=== PATIENT | female | born 1945 | race Caucasian/White ===

== ENCOUNTER 2017-09-16 11:58 | Emergency (ER) | payer OTHER, MEDICARE ==
[~2017-09-16] VITALS: Ht 157.5 cm; Wt 64.0 kg
[~2017-09-16 11:58] MED LIST: ADVAIR 100-501 EACH IH; ALBUTEROL1.25 MG/3 IH; ALBUTEROL2.5 MG/3 M IH; AMLODIPINE BESYL5 MG PO; AMOXICILLIN500 M1 PO; AMPICILLIN TRI250 MG PO; ASPIR-LOW81 MG PO; ASPIRIN EC81 MG PO; ATORVASTATIN CA40 MG PO; BACTRIM DS TAB1 EACH PO; CEPHALEXIN500 MG PO; CIPRO250 MG PO; CIPRO500 MG PO; CLONAZEPAM1 MG PO; CLONAZEPAM2 MG GT; CLONAZEPAM2 MG PO; CLOPIDOGREL75 MG PO; CRESTOR20 MG PO; CYCLOBENZAPRINE5 MG PO; DARVOCET-N 1001 EACH PO; DAYPRO600 MG PO; DUCODYL5 MG PO; ENDOCET 10-3251 EACH PO; ENDOCET 5-3251 EACH PO; HYDROCODON-ACE1 EAC8 PO; IBUPROFEN200 MG PO; IBUPROFEN600 MG PO; IBUPROFEN800 MG PO; KLONOPIN1 MG PO; KLONOPIN2 MG PO; L-METHYLFOLATE1 EAC4 PO; LACTULOSE10 GM/15 M PO; LEVOTHROID112 MCG PO; LEVOTHYROXINE100 MCG PO; LEVOTHYROXINE125 MCG PO; LEVOTHYROXINE88 MCG PO; LORATADINE10 MG PO; MULTI VITAMIN1 EACH PO; MULTI-DAY VITA1 EACH PO; NITROSTAT0.4 MG SL; NORCO 10-325 T1 EACH; NORCO 5-325 TA1 EACH PO; OSTERA TABLET1 EACH; OXYCODONE HCL10 MG PO; PERCOCET 10-321 EACH PO; PERCOCET 5-3251 EACH PO; PERCOCET 7.5-31 EACH PO; PREMARIN42.5 GM VAGINAL; PROMETHAZINE HC25 M1 PO; PYRIDIUM200 MG PO; RANITIDINE HCL150 MG PO; REMERON15 MG PO; REQUIP2 MG PO; REQUIP4 MG PO; ROBAXIN500 MG PO; ROPINIROLE HCL4 MG PO; SEPTRA 80-4001 EACH PO; TIZANIDINE HCL4 M1 PO; TRANSDERM-SCOP1 EA TD; TYLENOL EXTRA500 MG PO; VALIUM5 MG PO; VISTARIL25 MG PO; VITAMIN D250000 UNIT PO; VITAMIN D3400 UNIT PO; VITAMIN D35000 UNI1 PO; ZOFRAN4 MG PO
[2017-09-16] MEDS ORDERED: KETOROLAC TROME10 MG PO (13:40)
== END 2017-09-16 13:48 | disposition home or self-care (01) ==
LOC: ED 11:58
DX: S20.211A Contusion of right front wall of thorax, initial encounter (principal); E11.9 Type 2 diabetes mellitus without complications; J44.9 Chronic obstructive pulmonary disease, unspecified; F32.9 Major depressive disorder, single episode, unspecified; W18.39XA Other fall on same level, initial encounter; Z88.8 Allergy status to other drugs, medicaments and biological substances; Z88.5 Allergy status to narcotic agent; Z79.82 Long term (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 of aspirin; Z79.899 Other long term (current) 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
CPT/HCPCS: 71101; 96372; 99283; J1885

== ENCOUNTER → 2017-10-07 | Emergency (ER) | payer MEDICARE, OTHER ==
[~2017-10-07] VITALS: Ht 157.5 cm; Wt 64.0 kg
[~2017-10-07] MED LIST changes: +KETOROLAC TROME10 MG PO
--- OUTSIDE RECORDS SUMMARY | ~2017-10-07 | XMS | Clinical Summary ---
Demographics + + + | Address | [address] | | | [place] [address] | + + + | Home Phone | | + + + | Preferred Language | Unknown | + + + | Marital Status | Single | + + + | Yazidi Affiliation | NON | + + + [...] Care Team Providers + +------+-------+ | Care Bench Press Operator Name | Role | Phone | + +------+-------+ | Oxana Nye | PP | tel | + +------+-------+ Source Comments RADHA is fully live on both [facility] and [facility] InPatient.[facility] Allergies + + + + [...]
== END ==
LOC: ED 17:57
DX: F25.9 Schizoaffective disorder, unspecified (principal); F32.9 Major depressive disorder, single episode, unspecified; J44.9 Chronic obstructive pulmonary disease, unspecified; Z88.5 Allergy status to narcotic agent; Z88.8 Allergy status to other drugs, medicaments and biological substances; Z79.82 Long term (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 of aspirin; Z79.899 Other long term (current) 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
CPT/HCPCS: 80053; 80176; 81001; 84443; 85025; 99283; G0480

== ENCOUNTER 2017-11-18 13:06 | Emergency (ER) | payer MEDICARE, OTHER ==
[~2017-11-18] VITALS: Ht 157.5 cm; Wt 64.0 kg
--- OUTSIDE RECORDS SUMMARY | ~2017-11-18 | XMS | Clinical Summary ---
Demographics + + + | Address | [address] | | | [place] [address] | + + + | Home Phone | | + + + | Preferred Language | Unknown | + + + | Marital Status | Single | + + + | Holiness Affiliation | NON | + + + [...] | Unavailable | + + + Support +------+ +---------+ + | Name | Relationship | Address | Phone | +------+ +---------+ + ECON | Unknown | | +------+ +---------+ + Care Team Providers + +------+-------+ | Care Mechanic Chief Name | Role | Phone | + +------+-------+ | Oxana Nye | PP | tel | + +------+-------+ Source Comments RADHA is fully live on both [facility] Ambulatory and [facility] InPatient.[facility] Allergies + + + + [...] | | | (FLU SHOT): NO | 7 | | | | MYCHART REMINDER | | | | + + + + + Results Not on filefrom Last 3 Months
--- OUTSIDE RECORDS SUMMARY | ~2017-11-18 | XMS | Clinical Summary ---
Demographics + + + | Address | [address] | | | [place] [address] | + + + | Home Phone | | + + + | Preferred Language | Unknown | + + + | Marital Status | Single | + + + | Caodaism Affiliation | NON | + + + [...] Care Team Providers + +------+-------+ | Care Department Store General Manager Name | Role | Phone | + +------+-------+ | Oxana Nye | PP | tel | + +------+-------+ Source Comments RADHA is fully live on both [facility] Amb[facility] and [facility] InPatient.[facility] Allergies + + + + + + [...]
[2017-11-18] MEDS ORDERED: LEVOTHYROXINE100 MCG (13:20)
[2017-11-18] MEDS ORDERED: LEVOTHYROXINE100 MCG PO (13:21)
[2017-11-18] MEDS ORDERED: VENTOLIN HFA18 GM INH (13:22)
[2017-11-18] MEDS ORDERED: NAPROXEN500 M1 PO (13:23)
[2017-11-18] MEDS ORDERED: TYLENOL WITH C1 EACH PO (13:25)
[2017-11-18] MEDS ORDERED: LIDO-PRILO CAI1 EACH (13:26)
== END 2017-11-18 16:25 ==
LOC: ED 13:06
DX: R45.851 Suicidal ideations (principal); M25.511 Pain in right shoulder; M54.5 Low back pain; G89.29 Other chronic pain; G25.81 Restless legs syndrome; E11.9 Type 2 diabetes mellitus without complications; Z95.9 Presence of cardiac and vascular implant and graft, unspecified; Z88.8 Allergy status to other drugs, medicaments and biological substances; Z79.899 Other long term (current) 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
CPT/HCPCS: 80053; 80176; 81001; 84443; 85025; 99285; G0480

== ENCOUNTER 2018-02-11 21:19 | Emergency (ER) | payer MEDICARE, OTHER ==
[~2018-02-11] VITALS: Ht 157.5 cm; Wt 61.2 kg
[~2018-02-11 21:19] MED LIST changes: +LEVOTHYROXINE100 MCG; +LIDO-PRILO CAI1 EACH; +NAPROXEN500 M1 PO; +TYLENOL WITH C1 EACH PO; +VENTOLIN HFA18 GM INH
--- OUTSIDE RECORDS SUMMARY | 2018-02-12 07:11 | XMS | Clinical Summary ---
Demographics + + + | Address | [address] | | | [place] [address] | + + + | Home Phone | | + + + | Preferred Language | Unknown | + + + | Marital Status | | + + + | Mu-Ism Affiliation | 1041 | + + + | Race | Unknown | + + + | Ethnic Group | Unknown | + + + Author + + + | Author | [facility] | | | and [place] | + + + | Organization | [facility] | | | and [place] | + + + | Address | Unknown | + + + | Phone | Unavailable | + + + Support + + + + + | Name | Relationship | Address | Phone | + + + + + | Giuseppe Menchaca | ECON | Unknown | | + + + + + | Gonzalez Menchaca | ECON | NA | | | | | [place] | | + + + + + Care Team Providers + +------+ + | Care Field Artillery Targeting Technician Name | Role | Phone | + +------+ + | Wendi Aiken | PP | | + +------+ + Allergies + + + + + + | Active Allergy | Reactions | Severity | Noted | Comments | | | | | Date | | + + + + + + | Lorazepam | | | 09/18/20 | | | | | | 12 | | + + + + + + | Morphine | | | 09/18/20 | | | | | | 12 | | + + + + + + | Prednisolone | Other (See Comments) | Medium | 07/17/20 | | | | | | 14 | Depression/suicidal | + + + + + + | Zolpidem | | | 11/01/19 | | | | | | 13 | | + + + + + + Current Medications + + +-------+---------+------+------+-------+ | Prescription | Sig. | Disp. | Refills | Star | End | Statu | | | | | | t | Date | s | | | | | | Date | | | + + +-------+---------+------+------+-------+ | Ropinirole HCl | Take 4.5 mg by mouth | | | 11/0 | | Activ | | (REQUIP XL) 6 MG | 4 times daily. | | | 1/20 | | e | | TB24 | | | | 11 | | | + + +-------+---------+------+------+-------+ | levothyroxine | Take 0.88 mcg by | | | | | Activ | | (SYNTHROID, | mouth every morning | | | | | e | | LEVOTHROID) 112 mcg | (before breakfast). | | | | | | | tablet | | | | | | | + + +-------+---------+------+------+-------+ | Loratadine 10 MG | Take by mouth. | | | | | Activ | | CAPS | | | | | | e | + + +-------+---------+------+------+-------+ | clonazepam | Take 1 mg by mouth | | | | | Activ | | (KLONOPIN) 2 MG | Twice daily as | | | | | e | | tablet | needed. | | | | | | + + +-------+---------+------+------+-------+ | albuterol 5 mg/mL | Take 2.5 mg by | | | | | Activ | | nebulizer solution | nebulization every 6 | | | | | e | | | hours as needed. | | | | | | + + +-------+---------+------+------+-------+ | ipratropium | Take 0.5 mg by | | | | | Activ | | (ATROVENT) 500 | nebulization 4 times | | | | | e | | mcg/2.5 mL nebulizer | daily. | | | | | | | solution | | | | | | | + + +-------+---------+------+------+-------+ | ranitidine | Take 150 mg by mouth | | | | | Activ | | (ZANTAC) 150 MG | as needed. | | | | | e | | capsule | | | | | | | + + +-------+---------+------+------+-------+ | amLODIPine | Take 5 mg by mouth | | | | | Activ | | (NORVASC) 5 mg | Daily. | | | | | e | | tablet | | | | | | | + + +-------+---------+------+------+-------+ | ibuprofen | Take 600 mg by mouth | | | | | Activ | | (ADVIL,MOTRIN) 600 | every 6 hours as | | | | | e | | MG tablet | needed for Pain. | | | | | | + + +-------+---------+------+------+-------+ | Lactobacillus | Take 1 tablet by | | | | | Activ | | (PROBIOTIC | mouth Daily. | | | | | e | | ACIDOPHILUS PO) | | | | | | | + + +-------+---------+------+------+-------+ Active Problems + + + | Problem | Noted Date | + + + | Right lumbar radiculopathy | 07/12/2017 | + + + | Cervical radiculopathy | 07/26/2014 | + + + | Myelopathy (HCC) | 07/26/2014 | + + + | Scoliosis of lumbar spine | 04/17/2014 | + + + | 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 | 12/19/2013 | + + + | Chronic low back pain | 08/26/2013 | + + + | Facet arthritis of lumbar region (HCC) | 08/26/2013 | + + + | Acute renal failure (HCC) | 08/16/2013 | + + + | Left lumbar radiculopathy | 11/01/2012 | + + + | ORGANIC INSOMNIA UNSPECIFIED | 08/31/2011 | + + + + + | Overview: ICD-10 Record update | + + + +---+ | SACROILIITIS | | + +---+ | BURSITIS, HIP | | + +---+ | DISC DISEASE, LUMBAR | | + +---+ | BACK PAIN, LUMBAR | | + +---+ | OSTEOARTHRITIS, LUMBOSACRAL SPINE | | + +---+ | COUGH VARIANT ASTHMA | | + +---+ | Chronic diarrhea | | + +---+ + + | Overview: [facility] [id number] Decision | + + + +---+ | ESOPHAGEAL REFLUX | | + +---+ | GASTROPARESIS | | + +---+ | GENERALIZED ANXIETY DISORDER | | + +---+ | NAUSEA WITH VOMITING | | + +---+ | RESTLESS LEG SYNDROME | | + +---+ | HYPOGLYCEMIA | | + +---+ | INSOMNIA DUE TO MENTAL DISORDER | | + +---+ + + | Overview: ICD-10 Record update | + + + +---+ | Depression, major, recurrent - with multiple prior suicide | | | attempts | | + +---+ | LUMBAR STRAIN | | + +---+ | DDD (degenerative disc disease), lumbar | | + +---+ Family History + + +--------+ + | Medical History | Relation | Name | Comments | + + +--------+ + | Heart attack | Brother | | | + + +--------+ + | Heart failure | Brother | | | + + +--------+ + | No Known Problems | Child | | | + + +--------+ + | Alcohol abuse | Father | | | + + +--------+ + | Lung cancer | Father | | | + + +--------+ + | Parkinsonism | Maternal | | | | | Grandfath | | | | | er | | | + + +--------+ + | No Known Problems | Maternal | | | | | Grandmoth | | | | | er | | | + + +--------+ + | Arthritis | Mother | | | + + +--------+ + | Diabetes | Mother | | | + + +--------+ + | Heart disease | Mother | | | + + +--------+ + | Kidney disease | Mother | | | + + +--------+ + | Renal Failure | Mother | | | + + +--------+ + | Heart failure | Paternal | | | | | Aunt | | | + + +--------+ + | Cancer | Paternal | | | | | Grandfath | | | | | er | | | + + +--------+ + | Heart failure | Paternal | | | | | Grandmoth | | | | | er | | | + + +--------+ + | Alcohol abuse | Paternal | | | | | Uncle | | | + + +--------+ + | Cancer | Paternal | | | | | Uncle | | | + + +--------+ + | Cancer | Paternal | | | | | Uncle | | | + + +--------+ + | Stomach cancer | Paternal | | | | | Uncle | | | + + +--------+ + | Cancer | Sister | | | + + +--------+ + | No Known Problems | Son | Giuseppe | | + + +--------+ + | No Known Problems | Son | Destiny | | + + +--------+ + + +--------+ + + | Relation | Name | Status | Comments | + +--------+ + + | Brother | | | [place] | | | | (Age | | | | | 52) | | + +--------+ + + | Child | | | | + +--------+ + + | Father | | | | | | | (Age | | | | | 42) | | + +--------+ + + | Maternal Grandfather | | | | | | | (Age | | | | | 71) | | + +--------+ + + | Maternal Grandmother | | | | | | | (Age | | | | | 95) | | + +--------+ + + | Mother | | | Kidney Failure | | | | (Age | | | | | 55) | | + +--------+ + + | Paternal Aunt | | | | | | | (Age | | | | | 87) | | + +--------+ + + | Paternal Grandfather | | | Cancer | | | | (Age | | | | | 83) | | + +--------+ + + | Paternal Grandmother | | | Heart Failure | + +--------+ + + | Paternal Uncle | | | | + +--------+ + + | Paternal Uncle | | | | | | | (Age | | | | | 76) | | + +--------+ + + | Paternal Uncle | | | | | | | (Age | | | | | 76) | | + +--------+ + + | Paternal Uncle | | | | | | | (Age | | | | | 72) | | + +--------+ + + | Sister | | | | + +--------+ + + | Son | Giuseppe | Alive | | + +--------+ + + | Son | Destiny | Alive | | + +--------+ + + Social History + +-------+ +--------+------+ | Tobacco Use | Types | Packs/Day | Years | Date | | | | | Used | | + +-------+ +--------+------+ | Never Smoker | | | | | + +-------+ +--------+------+ + +---+---+---+ | Smokeless Tobacco: | | | | | Never Used | | | | + +---+---+---+ + + +---------+ + | Alcohol Use | Drinks/We | oz/Week | Comments | | | ek | | | + + +---------+ + | Yes | | | OCCASIONAL | + + +---------+ + + + + | Sex Assigned at | Date Recorded | | | | + + + | Not on file | | + + + Last Filed Vital Signs + + + + | Vital Sign | Reading | Time Taken | + + + + | Blood Pressure | 109/41 | 07/12/2017 1333 PDT | + + + + | Pulse | 74 | 07/12/20171332 PDT | + + + + | Temperature | 36.8 C (98.2 F) | 04/25/20171912 PDT | + + + + | Respiratory Rate | 16 | 04/25/20172019 PDT | + + + + | Oxygen Saturation | 97% | 04/25/20172019 PDT | + + + + | Inhaled Oxygen | - | - | | Concentration | | | + + + + | Weight | 61.2 kg (135 lb) | 07/12/20171332 PDT | + + + + | Height | 157.5 cm (5' 2") | 07/12/20171332 PDT | + + + + | Body Mass Index | 24.69 | 07/12/20171332 PDT | + + + + Plan of Treatment + + + + + | Health Maintenance | Due Date | Last Done | Comments | + + + + + | Hepatitis C | | | | | Screening | 7 | | | + + + + + | Vaccine: | | | | | Dtap/Tdap/Td (1 - | 6 | | | | Tdap) | | | | + + + + + | BREAST CANCER | | | | | SCREENING (MAMM Q2 | 7 | | | | YEARS 50-74) | | | | + + + + + | COLON CANCER | | | | | SCREENING | 7 | | | | (COLONOSCOPY EVERY | | | | | 10 YEARS 50-75) | | | | + + + + + | Vaccine: Zoster (#1) | | | | | | 7 | | | + + + + + | Vaccine: | | 07/18/2014 | | | Pneumococcal 65+ | 5 | | | | High/Highest Risk (2 | | | | | of 2 - PCV13) | | | | + + + + + | Vaccine: Influenza | | | | | (Season Ended) | 8 | | | + + + + + Results Not on filefrom Last 3 Months Insurance + +--------+ +--------+ +---------+ | Payer | Benefi | Subscriber | Type | Phone | Address | | | t Plan | ID | | | | | | / | | | | | | | Group | | | | | + +--------+ +--------+ +---------+ | INDIVIDUAL ASSURANCE | INDIVI | xxxxxxx | Indemn | | | | COMPANY | DUAL | | ity | | | | | ASSURA | | | | | | | [place] | | | | | | | MDCR | | | | | | | SUPPL | | | | | + +--------+ +--------+ +---------+ | MEDICARE | MEDICA | xxxxxxxxxx | Medica | +- | | | | RE | | re | [phone] | | | | PART A | | | | | | | AND B | | | | | + +--------+ +--------+ +---------+ | MEDICARE | MEDICA | xxxxxxxxxx | Medica | +- | | | | RE | | re | [phone] | | | | PART A | | | | | | | AND B | | | | | + +--------+ +--------+ +---------+ | INDIVIDUAL ASSURANCE | INDIVI | [id number] | Indemn | | | | COMPANY | DUAL | | ity | | | | | ASSURA | | | | | | | [place]CE [place] | | | | | | | MDCR | | | | | | | SUPPL | | | | | + +--------+ +--------+ +---------+ + +--------+ +--------+ + + | Guarantor Name | Accoun | Relation to | Date | Phone | Billing Address | | | t Type | Patient | of | | | | | | | | | | + +--------+ +--------+ + + | YU RUBIO | Person | Self [birth year] | Home: | [address] | | [place] | antonio/Benji | | 1945 | [phone] | [address] [place], [place] | | | jose | | | [phone] | + +--------+ +--------+ + + | YU RUBIO | Person | Self | [birth year] | Home: | [address] | | [place] | al/Fam | | 1944 | [phone]- | [address] [place], [place] | | | jose | | | [phone] | [phone] | + +--------+ +--------+ + +
--- OUTSIDE RECORDS SUMMARY | 2018-02-12 07:11 | XMS | Clinical Summary ---
Demographics + + + | Address | [address] | | | [place] [address] | + + + | Home Phone | | + + + | Preferred Language | Unknown | + + + | Marital Status | | + + + | Hoahaoism Affiliation | 1013 | + + + | Race | Unknown | + + + | Ethnic Group | Unknown | + + + Author + + + | Author | [facility] | + + + | Organization | [facility] | + + + | Address | Unknown | + + + | Phone | Unavailable | + + + Support + + +---------+ + | Name | Relationship | Address | Phone | + + +---------+ + | Detailed,Message | ECON | Unknown | | + + +---------+ + | Giuseppe Menchaca | ECON | Unknown | | + + +---------+ + | Gonzalez Menchaca | ECON | Unknown | | + + +---------+ + | Gwendolyn Cho | ECON | Unknown | | + + +---------+ + Care Team Providers + +------+ + | Care Medical Logistics Specialist Name | Role | Phone | + +------+ + | Oxana Nye NP | PP | | + +------+ + Allergies + + + + + + | Active Allergy | Reactions | Severity | Noted | Comments | | | | | Date | | + + + + + + | Zolpidem | Other (See Comments) | Medium | 11/15/19 | Unknown | | | | | 14 | | + + + + + + | Lorazepam | Other (See Comments) | Medium | 11/15/19 | Unknown reaction. | | | | | 14 | Has tolerated | | | | | | Clonazepam and | | | | | | Diazepam previously. | | | | | | 07/17/14 james | + + + + + + | Morphine | Other (See Comments) | Medium | 11/15/19 | Unknown. Per | | | | | 14 | patient she takes | | | | | | hydrocodone at home, | | | | | | has taken tramadol | | | | | | without incident | + + + + + + [...] | | | + + +-------+---------+------+------+-------+ | clonazePAM | Take 1 mg by mouth | | | | | Activ | | (KLONOPIN) 1 MG | nightly. | | | | | e | | tablet | | | | | | | + + +-------+---------+------+------+-------+ | loratadine | Take 10 mg by mouth | | | | | Activ | | (CLARITIN) 10 MG | daily. | | | | | e | | tablet | | | | | | | + + +-------+---------+------+------+-------+ | albuterol | Take 2 ampules by | | | | | Activ | | (ACCUNEB) 1.25 | nebulization every 6 | | | | | e | | MG/3ML nebulizer | (six) hours as | | | | | | | solution | needed for Wheezing. | | | | | | + + +-------+---------+------+------+-------+ | | Take 1 tablet by | | | | | Activ | | HYDROcodone-acetamin | mouth every 6 (six) | | | | | e | | ophen (NORCO) 10-325 | hours as needed for | | | | | | | MG per tablet | Pain. | | | | | | + + +-------+---------+------+------+-------+ | ibuprofen (MOTRIN) | Take 800 mg by mouth | | | | | Activ | | 800 MG tablet | every 6 (six) hours | | | | | e | | | as needed for Pain. | | | | | | + + +-------+---------+------+------+-------+ | levothyroxine | Take 88 mcg by mouth | | | | | Activ | | (SYNTHROID) 88 MCG | daily. | | | | | e | | tablet | | | | | | | + + +-------+---------+------+------+-------+ | ropinirole | Take 2 mg by mouth 4 | | | | | Activ | | (REQUIP) 2 MG tablet | (four) times daily. | | | | | e | + + +-------+---------+------+------+-------+ | atorvastatin | Take 40 mg by mouth | | | | | Activ | | (LIPITOR) 40 MG | nightly. | | | | | e | | tablet | | | | | | | + + +-------+---------+------+------+-------+ | clopidogrel | Take 75 mg by mouth | | | | | Activ | | (PLAVIX) 75 MG | daily. | | | | | e | | tablet | | | | | | | + + +-------+---------+------+------+-------+ | aspirin 81 MG | Take 81 mg by mouth | | | | | Activ | | tablet | daily. | | | | | e | + + +-------+---------+------+------+-------+ | nitroGLYCERIN | Place 0.4 mg under | | | | | Activ | | (NITROSTAT) 0.4 MG | the tongue every 5 | | | | | e | | SL tablet | (five) minutes as | | | | | | | | needed for Chest | | | | | | | | pain. | | | | | | + + +-------+---------+------+------+-------+ Active Problems + + + | Problem | Noted Date | + + + | Peripheral vertigo | 11/20/2015 | + + + | Intractable back pain | 07/17/2014 | + + + | Impaired mobility and ADLs | 11/19/2013 | + + + | Gait difficulty | 11/19/2013 | + + + | Anxiety state, unspecified | 11/19/2013 | + + + | History of oral aphthous ulcers | 11/19/2013 | + + + | Hypothyroid | 11/17/2013 | + + + | Low back ache | 11/17/2013 | + + + | COPD (chronic obstructive pulmonary disease) | 11/17/2013 | + + + | Aspiration pneumonia (HCC) | 11/17/2013 | + + + | Generalized anxiety disorder | 11/17/2013 | + + + | Anemia, unspecified | 11/16/2013 | + + + | Acute respiratory failure (HCC) | 11/15/2013 | + + + | Other shock without mention of trauma | 11/15/2013 | + + + | Metabolic acidosis | 11/15/2013 | + + + | Coma (HCC) | 11/15/2013 | + + + | Overdose of muscle relaxant | 11/15/2013 | + + + | Alcohol intoxication | 11/15/2013 | + + + | Hypotension, unspecified | 11/15/2013 | + + + Immunizations + + + + | Name | Dates Previously Given | Next Due | + + + + | Pneumococcal | 07/18/2014 | | | Polysaccharide | | | | 23-valent | | | + + + + Social History + +-------+ +--------+------+ [...] + + +---------+ + | Yes | 3-4 | 1.5 - | | | | Standard | 2.0 | | | | drinks or | | | | | | | | | | equivalen | | | | | t | | | + + +---------+ + + + + | Sex Assigned at | Date Recorded | | | | + + + | Not on file | | + + + Last Filed Vital Signs + + + + | Vital Sign | Reading | Time Taken | + + + + | Blood Pressure | 113/74 | 03/02/2016 3:27 PM PDT | + + + + | Pulse | 84 | 03/02/2016 3:27 PM PDT | + + + + | Temperature | 36.4 C (97.6 F) | 11/26/2015 12:22 PM PST | + + + + | Respiratory Rate | 20 | 11/26/2015 1:13 PM PST | + + + + | Oxygen Saturation | 100% | 11/26/2015 1:13 PM PST | + + + + | Inhaled Oxygen | - | - | | Concentration | | | + + + + | Weight | 57.6 kg (127 lb) | 03/02/2016 3:27 PM PDT | + + + + | Height | 157.5 cm (5' 2") | 03/02/2016 3:27 PM PDT | + + + + | Body Mass Index | 23.23 | 03/02/2016 3:27 PM PDT | + + + + Plan of Treatment + + + + + | Health Maintenance | Due Date | Last Done | Comments | + + + + + | Vaccine: | | | | | Dtap/Tdap/Td (1 - | 6 | | | | Tdap) | | | | + + + + + | Breast Cancer | | | | | Screening | 7 | | | | (Mammogram) | | | | + + + + + | Colon Cancer | | | | | Screening | 7 | | | | (Colonoscopy) | | | | + + + + + | Vaccine: Zoster (#1) | | | | | | 7 | | | + + + + + | DEXA SCAN SCREENING | | | | | | 2 | | | + + + + + | Vaccine: | | 07/18/2014 | | | Pneumococcal 65+ | 5 | | | | Low/Medium Risk (2 | | | | | of 2 - PCV13) | | | | + + + + + | Vaccine: Influenza | | | | | (Season Ended) | 8 | | | + + + + + Results Not on filefrom Last 3 Months Insurance + +--------+ +------+-------+ + | Payer | Benefi | Subscriber | Type | Phone | Address | | | t Plan | ID | | | | | | / | | | | | | | Group | | | | | + +--------+ +------+-------+ + | MEDICARE | MEDICA | xxxxxxxxxx | | | [address] | | | RE | | | | [place] [address] | | | IP-OP | | | | | + +--------+ +------+-------+ + | [facility] | UNITED | xxxxxxxxxxx | | | | | | | | | | | | | HEALTH | | | | | | | CARE - | | | | | | | AARP | | | | | + +--------+ +------+-------+ + + +--------+ +--------+ + + | Guarantor Name | Accoun | Relation to | Date | Phone | Billing Address | | | t Type | Patient | of | | | | | | | | | | + +--------+ +--------+ + + | JAS BUTLER | Person | Self [birth year] | Home: | [address] | | [place] | al/Fam | | 1945 | [phone] | [address] [place], | | | jose | | | [phone] | [place] [address] | + +--------+ +--------+ + +
--- OUTSIDE RECORDS SUMMARY | 2018-02-12 07:11 | XMS | Clinical Summary ---
Demographics + + + | Address | [address] | | | [place] [address] | + + + | Home Phone | | + + + | Preferred Language | Unknown | + + + | Marital Status | Single | + + + | Sikhism Affiliation | NON | + + + | Race | White | + + + | Ethnic Group | Not or | + + + Author + + + | Author | [facility] | + + + | Organization | [facility] | + + + | Address | Unknown | + + + | Phone | Unavailable | + + + Support + + +---------+ + | Name | Relationship | Address | Phone | + + +---------+ + | Royce Menchaca | ECON | Unknown | | + + +---------+ + Care Team Providers + +------+ + | Care Correctional Probation Officer Name | Role | Phone | + +------+ + | Oxana Nye | PP | Unavailable | + +------+ + Source Comments [facility] is fully live on both [facility] and [facility] Allergies + + + + + + | Active Allergy | Reactions | Severity | Noted | Comments | | | | | Date | | + + + + + + | Zolpidem Tartrate | Hallucinations | | 11/29/19 | | | | | | 14 | | + + + + + + | Lorazepam | Hallucinations | | 11/29/19 | | | | | | 14 | | + + + + + + | Morphine | Hallucinations | | 11/29/19 | | | | | | 14 | | + + + + + + Current Medications + + +--------+---------+------+------+-------+ | Prescription | Sig. | Disp. | Refills | Star | End | Statu | | | | | | t | Date | s | | | | | | Date | | | + + +--------+---------+------+------+-------+ | levothyroxine 112 | Take 88 mcg by mouth | | | | | Activ | | mcg oral tablet | once daily. | | | | | e | + + +--------+---------+------+------+-------+ | clonazePAM 1 mg | Take 0.5 mg by mouth | | | | | Activ | | oral tablet | once daily at | | | | | e | | | bedtime. | | | | | | + + +--------+---------+------+------+-------+ | | Take 1 tablet by | | | | | Activ | | HYDROcodone-acetamin | mouth every six | | | | | e | | ophen 10-325 mg oral | hours as needed. | | | | | | | tablet | | | | | | | + + +--------+---------+------+------+-------+ | ibuprofen 600 mg | Take by mouth. | | | | | Activ | | oral tablet | | | | | | e | + + +--------+---------+------+------+-------+ | loratadine 10 mg | Take 10 mg by mouth | | | | | Activ | | oral tablet | once daily. | | | | | e | + + +--------+---------+------+------+-------+ | Ranitidine HCl 150 | Take 150 mg by mouth | | | | | Activ | | mg oral capsule | once daily at | | | | | e | | | bedtime. | | | | | | + + +--------+---------+------+------+-------+ | rOPINIRole 2 mg | Take 2 mg by mouth | | | | | Activ | | oral tablet | once daily in the | | | | | e | | | evening. | | | | | | + + +--------+---------+------+------+-------+ | aspirin EC 81 mg | Take 81 mg by mouth | | | | | Activ | | oral tablet,delayed | once daily. | | | | | e | | release (DR/EC) | | | | | | | + + +--------+---------+------+------+-------+ | NITROSTAT 0.4 mg | | | 0 | 03/0 | | Activ | | sublingual tablet, | | | | 8/20 | | e | | sublingual | | | | 16 | | | + + +--------+---------+------+------+-------+ | amLODIPine 5 mg | Take 1 tablet by | 90 | 3 | 05/1 | | Activ | | oral | mouth once daily. | tablet | | 0/20 | | e | | tabletIndications: | | | | 16 | | | | Chest pain, | | | | | | | | unspecified type | | | | | | | + + +--------+---------+------+------+-------+ Active Problems + + + | Problem | Noted Date | + + + | Hypothyroidism | 03/15/2016 | + + + | Anxiety | 03/15/2016 | + + + | Palpitations | 03/09/2016 | + + + | Chest pain | 03/09/2016 | + + + | PPS (pelvic pain syndrome) | 12/09/2013 | + + + | Depression with suicidal ideation | 12/09/2013 | + + + | Recurrent UTI | 12/09/2013 | + + + Family History + + +------+ + | Medical History | Relation | Name | Comments | + + +------+ + | Heart Attack | Brother | | | + + +------+ + | Cancer | Father | | lung | + + +------+ + | Diabetes | Mother | | type 1 | + + +------+ + + +------+--------+ + | Relation | Name | Status | Comments | + +------+--------+ + | Brother | | | | + +------+--------+ + | Father | | | | + +------+--------+ + | Mother | | | | + +------+--------+ + Social History + +-------+ +--------+------+ | [...] | | + + +---------+ + | No | | | | + + +---------+ + + + + | Sex Assigned at | Date Recorded | | | | + + + | Not on file | | + + + Last Filed Vital Signs + + + + | Vital Sign | Reading | Time Taken | + + + + | Blood Pressure | 134/71 | 03/09/2016 3:31 PM PDT | + + + + | Pulse | 76 | 03/09/2016 3:31 PM PDT | + + + + | Temperature | 36.7 C (98 F) | 03/09/2016 3:31 PM PDT | + + + + | Respiratory Rate | - | - | + + + + | Oxygen Saturation | 100% | 03/09/2016 3:31 PM PDT | + + + + | Inhaled Oxygen | - | - | | Concentration | | | + + + + | Weight | 58.5 kg (129 lb) | 03/09/2016 3:31 PM PDT | + + + + | Height | 156.2 cm (5' 1.5") | 03/09/2016 3:31 PM PDT | + + + + | Body Mass Index | 23.98 | 03/09/2016 3:31 PM PDT | + + + + Plan of Treatment + + + + + | Health Maintenance | Due Date | Last Done | Comments | + + + + + | MAMMOGRAM | | | | | | 7 | | | + + + + + | INFLUENZA VACCINE | | | | | (FLU SHOT): NO | 8 | | | | MYCHART REMINDER | | | | + + + + + Results Not on filefrom Last 3 Months
--- OUTSIDE RECORDS SUMMARY | 2018-02-12 07:11 | XMS | Clinical Summary ---
Demographics + + + | Address | [address] | | | [place] [address] | + + + | Home Phone | | + + + | Preferred Language | Unknown | + + + | Marital Status | | + + + | Moravian Affiliation | 1013 | + + + | Race | Unknown | + + + | Ethnic Group | Unknown | + + + Author + + + | Author | [facility] | + + + | Organization | [facility] [employer] [facility] | + + + | Address [...] Team Providers + +------+ + | Care Social Media Intern Name | Role | Phone | + [...] RE | | | | [place] [address] | | | IP-OP | | | | | + +--------+ +------+-------+ + | [facility] | [place] | xxxxxxxxxxx | | | [...] | | | jose | | | [phone] | [place] [phone] | + +--------+ +--------+ + +
--- OUTSIDE RECORDS SUMMARY | 2018-02-12 07:11 | XMS | Clinical Summary ---
Demographics + + + | Address | [address] | | | [place] [address] | + + + | Home Phone | | + + + | Preferred Language | Unknown | + + + | Marital Status | Single | + + + | Uatsdin Affiliation | NON | + + + [...] Team Providers + +------+ + | Care Market President Name | Role | Phone | + +------+ + | Oxana Nye | PP | Unavailable | + +------+ + Source Comments [facility] is fully live [facility] both [facility] and [facility] Allergies + + + + + + [...]
--- OUTSIDE RECORDS SUMMARY | 2018-02-12 07:12 | XMS | Clinical Summary ---
Demographics + + + | Address | [address] | | | [place] [address] | + + + | Home Phone | | + + + | Preferred Language | Unknown | + + + | Marital Status | | + + + | Jainism Affiliation | 1041 | + + + | Race | Unknown | + + + | Ethnic Group | Unknown | + + + Author + + + | Author | [facility] | | | and Priteshana | + + + | Organization | [facility] | | | [...] Team Providers + +------+ + | Care Hoistman Name | Role | Phone | + [...] + +---+ + + | Overview: LOUISE [id number] Decision | + + + +---+ | [...] + + | Brother | | | [place] | | | | (Age | | [...] | jose | | | [phone] | [phone] | + +--------+ +--------+ + + | YU RUBIO | Person | Self | [birth year] | Home: | [address] | | JOSEPH BOWEN | al/Fam | | 1944 | +- | [address] [place], [place] | | | jose | | | [phone] | [phone] | + +--------+ +--------+ + +
--- NOTE | 2018-02-12 15:57 | EKG ---
[facility] [address] [place] [address] Signed Sinus rhythm with premature atrial complexes Otherwise normal ECG When compared with ECG of 06-SEP-2016 17:37, premature atrial complexes are now present Confirmed by TRAE DE LA ROSA MD ([id number]) on 02/12/2018 3:57:14 PM Electronically Signed By: TRAE DE LA ROSA MD 02/12/18 1557 PATIENT NAME: RONALD FLORIAN Electrocardiogram DATE OF : 49 PHYSICIAN: TRAE DE LA ROSA MD REPORT #: [id number] REPORT IS CONFIDENTIAL AND NOT TO BE RELEASED WITHOUT AUTHORIZATION
== END 2018-02-12 10:30 | disposition home or self-care (01) ==
LOC: ED 21:19
DX: T42.8X2A Poisoning by antiparkinsonism drugs and other central muscle-tone depressants, intentional self-harm, initial encounter (principal); E11.9 Type 2 diabetes mellitus without complications; G25.81 Restless legs syndrome; Z88.8 Allergy status to other drugs, medicaments and biological substances; Z79.899 Other long term (current) 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; Z79.1 Long term (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 of non-steroidal anti-inflammatories (NSAID)
CPT/HCPCS: 80053; 80176; 81001; 84443; 85025; 93005; 93010; 99284; G0480

== ENCOUNTER 2018-02-15 23:17 | Emergency (ER) | payer MEDICARE, OTHER ==
[~2018-02-15] VITALS: Ht 157.5 cm; Wt 61.2 kg
--- OUTSIDE RECORDS SUMMARY | ~2018-02-15 | XMS | Clinical Summary ---
Demographics + + + | Address | [address] | | | [place] [address] | + + + | Home Phone | | + + + | Preferred Language | Unknown | + + + | Marital Status | Single | + + + | Jainism Affiliation | NON | + + + [...] Team Providers + +------+ + | Care Sociology Research Assistant Name | Role | Phone | + +------+ + | Oxana Nye | PP | Unavailable | + +------+ + Source Comments [facility] and [facility] Allergies + + + + + [...]
--- OUTSIDE RECORDS SUMMARY | ~2018-02-15 | XMS | Clinical Summary ---
Demographics + + + | Address | [address] | | | [place] [address] | + + + | Home Phone | | + + + | Preferred Language | Unknown | + + + | Marital Status | | + + + | Hindu Affiliation | 1013 | + + + | Race | Unknown | + + + | Ethnic Group | Unknown | + + + Author + + + | Author | [facility] [employer] | + + + | Organization | [facility] [employer] [facility] | + + + | Address [...] Providers + +------+ + | Care Mine Wedge Sawyer Name | Role | Phone | + [...] RE | | | | [place] [address] | | | IP-OP | | | | | + +--------+ +------+-------+ + | [facility] | [place] | xxxxxxxxxxx | | | [...] | | | jose | | | [phone] | [place] [address] | + +--------+ +--------+ + +
--- OUTSIDE RECORDS SUMMARY | ~2018-02-15 | XMS | Clinical Summary ---
Demographics + + + | Address | [address] | | | [place] [address] | + + + | Home Phone | | + + + | Preferred Language | Unknown | + + + | Marital Status | | + + + | Muslim Affiliation | 1013 | + + + | Race | Unknown | + + + | Ethnic Group | Unknown | + + + Author + + + | Author | [facility] [employer] | + + + | Organization | [facility] | + + + | Address [...] Team Providers + +------+ + | Care Geopolitics Teacher Name | Role | Phone | [...] RE | | | | [place] [address] | | | IP-OP | | | | | + +--------+ +------+-------+ + | [facility] | [place] | xxxxxxxxxxx | | | [...] | | | jose | | | [phone] | [place] [address] | + +--------+ +--------+ + +
--- OUTSIDE RECORDS SUMMARY | ~2018-02-15 | XMS | Clinical Summary ---
Demographics + + + | Address | [address] | | | [place] [address] | + + + | Home Phone [...] Team Providers + +------+ + | Care Oxygen Tank Filler Name | Role | Phone | + +------+ + | Oxana Nye | PP | Unavailable | + +------+ + Source Comments [facility] is fully [facility] both [facility] and [facility] Allergies + + + + + [...]
--- OUTSIDE RECORDS SUMMARY | ~2018-02-15 | XMS | Clinical Summary ---
Demographics + + + | Address | [address] | | | [place] [address] | + + + | Home Phone | | + + + | Preferred Language | Unknown | + + + | Marital Status | | + + + | Yarsani Affiliation | 1041 | + + + [...] Providers + +------+ + | Care Machine Deburrer Name | Role | Phone | + [...] + +---+ + + | Overview: LOUISE [id number] Decision | + + + +---+ | [address] | | JOSEPH BOWEN | antonio/Benij | | 1945 | [phone] | [address] [place], [place] | | | jose | | | [phone] | [phone] | + +--------+ +--------+ + + | YU RUBIO | Person | Self | [birth year] | Home: | [address] | | JOSEPH BOWEN | al/Fam | | 1944 | +- | [address] [place], [place] | | | jose | | | [phone] | [phone] | + +--------+ +--------+ + +
--- OUTSIDE RECORDS SUMMARY | ~2018-02-15 | XMS | Clinical Summary ---
Demographics + + + | Address | [address] | | | [place] [address] | + + + | Home Phone [...] Team Providers + +------+ + | Care District Ranger Name | Role | Phone | + [...] + +---+ + + | Overview: LOUISE [id number] Decision | + + + +---+ | [...] + + | Brother | | | [place] | | | | (Age | | [...] | jose | | | 4118 | [phone] | + +--------+ +--------+ + + | YU RUBIO | Person | Self | [birth year] | Home: | [address] | | JOSEPH BOWEN | al/Fam | | 1944 | +- | [address] [place], [place] | | | jose | | | [phone] | [phone] | + +--------+ +--------+ + +
== END 2018-02-16 01:20 | disposition home or self-care (01) ==
LOC: ED 23:17
DX: S20.212A Contusion of left front wall of thorax, initial encounter (principal); E11.9 Type 2 diabetes mellitus without complications; J44.9 Chronic obstructive pulmonary disease, unspecified; F32.9 Major depressive disorder, single episode, unspecified; Z88.8 Allergy status to other drugs, medicaments and biological substances; Z79.899 Other long term (current) 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; W18.30XA Fall on same level, unspecified, initial encounter
CPT/HCPCS: 71046; 99283

== ENCOUNTER 2018-02-24 15:35 | Inpatient (IN) | payer MEDICARE, OTHER ==
[~2018-02-24] VITALS: Ht 157.5 cm; Wt 61.2 kg
--- OUTSIDE RECORDS SUMMARY | ~2018-02-24 | XMS | Clinical Summary ---
Demographics + + + | Address | [address] | | | [place] [address] | + + + | Home Phone | | + + + | Preferred Language | Unknown | + + + | Marital Status | | + + + | Confucianist Affiliation | 1041 | + + + | Race | Unknown | + + + | Ethnic Group | Unknown | + + + Author + + + | Author | [facility] | | | and Priteshana | + + + | Organization | [facility] | | [...] Team Providers + +------+ + | Care Trackmobile Operator Name | Role | Phone | [...] + +---+ + + | Overview: LOUISE [id number] Decision | + + + +---+ | [...] + + | Brother | | | [place] | | | | (Age | | [...] | MEDICA | xxxxxxxxxx | Medica | [phone]- | | | | RE | | [...] | JOSEPH BOWEN | antonio/Benji | | 7 | [phone] | [address] [place] | | | jose | | | [phone] | [phone] | + +--------+ +--------+ + + | YU RUBIO | Person | Self | [birth year] | Home: | [address] | | JOSEPH JESSI | al/Fam | | 1945 | [phone] | [address] [place] | | | jose | | | [phone] | [phone] | + +--------+ +--------+ + +
--- OUTSIDE RECORDS SUMMARY | ~2018-02-24 | XMS | Clinical Summary ---
Demographics + + + | Address | [address] | | | [place] [address] | + + + | Home Phone | | + + + | Preferred Language | Unknown | + + + | Marital Status | | + + + | Caodaism Affiliation | 1013 | + + + | Race | Unknown | + + + | Ethnic Group | Unknown | + + + Author + + + | Author | [facility] [employer] | + + + | Organization | [facility] [employer] [facility] | + + + | Address [...] Providers + +------+ + | Care Medical Insurance Verifier Name | Role | Phone | + [...] MEDICA | xxxxxxxxxx | | | [address] | | | RE | | | | [place] [address] | | | IP-OP | | | | | + +--------+ +------+-------+ + | UNITED [facility] | UNITED | xxxxxxxxxxx | | [...] | | | jose | | | [phone] | [place] [phone] | + +--------+ +--------+ + +
--- OUTSIDE RECORDS SUMMARY | ~2018-02-24 | XMS | Clinical Summary ---
Demographics + + + | Address | [address] | | | [place] [address] | + + + | Home Phone | | + + + | Preferred Language | Unknown | + + + | Marital Status | | + + + | Caodaism Affiliation | 1041 | + + + [...] | + + + + + | Guiseppe Menchaca | ECON | Unknown | | + + + + + | Gonzalez Men[place] | ECON | NA | | | | | [place] | | + + + + + Care Team Providers + +------+ + | Care Nutrition Technician Name | Role | Phone | [...] + +---+ + + | Overview: LOUISE [id number] Decision | + + + +---+ | [...] + + | Brother | | | [place] | | | | (Age | | [...] | | | jose | | | [phone] | [phone] | + +--------+ +--------+ + + | YU RUBIO | Person | Self | [birth year] | Home: | [address] | | JOSEPH JESSI | al/Fam | | 1945 | [phone] | [address] [place] | | | jose | | | [phone] | [phone] | + +--------+ +--------+ + +
--- OUTSIDE RECORDS SUMMARY | ~2018-02-24 | XMS | Clinical Summary ---
Demographics + + + | Address | [address] | | | [place] [address] | + + + | Home Phone | | + + + | Preferred Language | Unknown | + + + | Marital Status | | + + + | Jewish Affiliation | 1013 | + + + | Race | Unknown | + + + | Ethnic Group | Unknown | + + + Author + + + | Author | [employer] | + + + | Organization | [facility] [facility] | + + + | Address [...] Team Providers + +------+ + | Care Crusher Wet Ground Mica Name | Role | Phone | + [...] | xxxxxxxxxx | | | [address] | | | RE | | | | [place] [address] | | | IP-OP | | | | | + +--------+ +------+-------+ + | UNITED [facility] | UNITED | xxxxxxxxxxx | | | [...] | | | jose | | | [phone] | [place] [phone] | + +--------+ +--------+ + +
--- OUTSIDE RECORDS SUMMARY | ~2018-02-24 | XMS | Clinical Summary ---
Demographics + + + | Address | [address] | | | [place] [address] | + + + | Home Phone [...] Team Providers + +------+ + | Care Naphthol Soaping Machine Operator Name | Role | Phone | + +------+ + | Oxana Nye | PP | Unavailable | + +------+ + Source Comments [facility] is fully live on both [facility] and [facility] Allergies + + + + [...]
--- OUTSIDE RECORDS SUMMARY | ~2018-02-24 | XMS | Clinical Summary ---
Demographics + + + | Address | [address] | | | [place] [address] | + + + | Home Phone [...] + +------+ + | Care Business Development Sales Executive Name | Role | Phone | + +------+ + | Oxana Nye | PP | Unavailable | + +------+ + Source Comments [facility] is fully live [facility] both [facility] and [facility] Allergies + + + + [...]
--- OUTSIDE RECORDS SUMMARY | ~2018-02-24 | XMS | Clinical Summary ---
Demographics + + + | Address | [address] | | | [place] [address] | + + + | Home Phone | | + + + | Preferred Language | Unknown | + + + | Marital Status | | + + + | Baptist Affiliation | 1013 | + + + | Race | Unknown | + + + | Ethnic Group | Unknown | + + + Author + + + | Author | [facility] | + + + | Organization | [facility] [facility] | + + + | Address [...] Team Providers + +------+ + | Care Flatwork Assembler Name | Role | Phone | [...] | xxxxxxxxxx | | | [address] | | | RE | | | | [place] [address] | | | IP-OP | | | | | + +--------+ +------+-------+ + | UNITED [facility] | UNITED | xxxxxxxxxxx | | [...] | | | jose | | | [phone] | [place] [address] | + +--------+ +--------+ + +
--- OUTSIDE RECORDS SUMMARY | ~2018-02-24 | XMS | Clinical Summary ---
Demographics + + + | Address | [address] | | | [place] [address] | + + + | Home Phone [...] Team Providers + +------+ + | Care Crew Chief Name | Role | Phone | + +------+ + | Oxana Nye | PP | Unavailable | + +------+ + Source Comments RADHA is fully live on both [facility] and [facility] Allergies + + + + + + [...]
--- OUTSIDE RECORDS SUMMARY | ~2018-02-24 | XMS | Clinical Summary ---
Demographics + + + | Address | [address] | | | [place] [address] | + + + | Home Phone | | + + + | Preferred Language | Unknown | + + + | Marital Status | | + + + | Amish Affiliation | 1013 | + + + | Race | Unknown | + + + | Ethnic Group | Unknown | + + + Author + + + | Author | [employer] | + + + | Organization | [facility] [employer] [facility] | + + + | [...] Team Providers + +------+ + | Care Plaster Applicator Name | Role | Phone | + [...] | xxxxxxxxxx | | | [address] | | | RE | | | | [place] [address] | | | IP-OP | | | | | + +--------+ +------+-------+ + | [facility] | [place] | xxxxxxxxxxx | | [...] jose | | | [phone] | [place] [phone] | + +--------+ +--------+ + +
--- OUTSIDE RECORDS SUMMARY | ~2018-02-24 | XMS | Clinical Summary ---
Demographics + + + | Address | [address] | | | [place] [address] | + + + | Home Phone [...] Team Providers + +------+ + | Care Publishing Director Name | Role | Phone | + +------+ + | Oxana Nye | PP | Unavailable | + +------+ + Source Comments RADHA is [facility] both [facility] and [facility] Allergies + + [...]
--- OUTSIDE RECORDS SUMMARY | ~2018-02-24 | XMS | Clinical Summary ---
Demographics + + + | Address | [address] | | | [place] [address] | + + + | Home Phone | | + + + | Preferred Language | Unknown | + + + | Marital Status | | + + + | Orthodox Affiliation | 1041 | + + + [...] Providers + +------+ + | Care Assistant Softball Coach Name | Role | Phone | [...] + +---+ + + | Overview: LOUISE [id number] Decision | + + + +---+ | [...] | | | jose | | | [phone] | [address] | + +--------+ +--------+ + + | YU RUBIO | Person | Self | [birth year] | Home: | [address] | | JOSEPH JESSI | al/Fam | | 1945 | [phone] | [address] [place] | | | jose | | | [phone] | [address] | + +--------+ +--------+ + +
--- OUTSIDE RECORDS SUMMARY | ~2018-02-24 | XMS | Clinical Summary ---
Demographics + + + | Address | [address] | | | [place] [address] | + + + | Home Phone | | + + + | Preferred Language | Unknown | + + + | Marital Status | | + + + | Catholic Affiliation | 1041 | + + + [...] Team Providers + +------+ + | Care Sewer Pipe Offbearer Name | Role | Phone | [...] + +---+ + + | Overview: LOUISE [id number] Decision | + + + +---+ | [...] + + | Brother | | | [place] | | | | (Age | | [...] | | | jose | | | 5918 | [address] | + +--------+ +--------+ + + | YU RUBIO | Person | Self | [birth year] | Home: | [address] | | JOSEPH JESSI | al/Fam | | 1945 | [phone] | [address] [place] | | | jose | | | [phone] | [phone] | + +--------+ +--------+ + +
--- NOTE | 2018-02-24 19:20 | NUR ---
PATIENT TO MED-SURG FLOOR FROM ED VIA STRETCHER. TRANSFER PATIENT TO BED WITH 3 PERS ASSIST. PATIENT HAS DIFFICULTY SPEAKING AND WAS ABLE TO WRITE DOWN WHAT SHE NEEDED TO SAY AND ANSWERING QUESTIONS. PATIENT HAS RIGHT SIDED WEAKNESS, INTACT SENSATION. NO FACIAL DROOP NOTED. PATIENT HAS GARBLE SPEECH AND NO VERY UNDERSTANDABLE WHEN SHE SPOKE. IV SITE PATENT AND FLUID INFUSING AT 125 PER ORDER. PATIENT IS TELE # 7. VS STABLE. RODRIGUEZ IN PLACE DRAINING WELL. PATIENT IS ALERT AND ORIENTED. MADE SOME PHONE CALLS FOR PATIENT TO NOTIFIED HER FRIENDS. PATIENT RESTING IN BED AT THIS TIME. PATIENT EDUCATED TO CALL WHEN NEEDED.
--- NOTE | 2018-02-24 20:00 | NUR ---
RECEIVED REPORT AT 1900, FOUND PT IN BED UNABLE TO SPEAK. PT WAS COMMUNICATING VIA WRITING. PT WANTED SOME PAIN MEDICATION AND HER USUAL MEDS. I TOLD HER THAT SHE WOULD HAVE TO WAIT FOR MD DE LA ROSA TO COME AND SEE HER.
--- NOTE | 2018-02-24 21:00 | NUR ---
PT NOW IS VERBAL AGAIN.
--- NOTE | 2018-02-24 22:00 | NUR ---
PT PASSED BED SIDE SWALLOW STUDY AND IS NOW ON A CARDIAC DIET. RODRIGUEZ WAS D/C WELL. URINE OUTPUT IS ADEQUATE SO FAR. SBP WAS 90 TAKEN MANNUALLY, MD DE LA ROSA IS AWARE. OTHER V/S ARE WDL. PT HAS HOME MEDICATION IN KITS LIST. WILL CALL PHARMACY IN THE AM. NEURO CHECK WAS NOT WDL. PT HAS NO MOVEMENT IN BOTH LEGS, PT IS DISORIENTED TO DATE, MONTH AND IS UNABLE TO DO SIMPLE ADDITION. RIGHT ARM HAS NO MOVEMENT OR STRENGTH. THIS IN PART MAY BE DUE TO A SHOULDER INJURY. LEFT ARM IS WEAK. PUPILS ARE WDL. HOWEVER, PT WAS UNABLE TO TRACE PEN WITH HER EYES. HER VISUAL FIEL IS ALSO LIMITED.
--- NOTE | 2018-02-24 22:50 | NUR ---
PT PLACED ON BEDPAN. VOIDED 200CC CLEAR COLORED URINE, SKIN CARE DONE.
--- NOTE | 2018-02-24 23:29 | NUR ---
PT OFF BEDPAN, VOIDED CLEAR URINE, 300CC, SKIN CARE DONE, PT NPO, LEMON SWABS GIVEN.
--- NOTE | 2018-02-25 | NUR ---
PATIENT RESTING IN BED, BREATHING IS EVEN AND UNLABORED. FLACC SCORE OF 0. CALL LIGHT WITHIN REACH, BED ALARM ON.
--- NOTE | 2018-02-25 | NUR ---
PT IS IN BED WITH EYES CLOSED. NOT SURE IS SHE IS SLEEPING. NO NEW CONCERNS
--- NOTE | 2018-02-25 02:00 | NUR ---
THERE IS NO CHANGE IN NEUROLOGICAL STATUS WITH THE EXCEPTION THAT PT NOW HAS NO ISSUES WITH HER SPEECH. THE OTHER INTERESTING THING IS THAT HER RIGHT HAND HAS NO STRENGTH AT ALL BUT YET PT IS ABLE TO DRAW AND WRITE WITH THAT HAND. LOBES ARE CLEAR, V/S ARE WDL, URNIE OUTPUT IS ADEQUATE, PT IS SL AT THIS TIME. PT ALSO KEEPS WANTING TO GET UP OUT OF BED TO USE THE RESTROOM. SINCE PT IS NOT ABLE TO LIFT HER LEGS UP AT ALL, I DO NOT FEEL THAT IT IS SAFE TO GET HER OUT OF BED. PT THEREFORE NEEDS TO USE A BED SNOW FOR NOW. PHYSICAL THERAPY CAN ATTEMPT TO GET HER OUT OF BED THIS MORNING. PT NOW IS AWAKE IN BED DRAWING PICTURES. PT HAS NO NEEDS AT THIS TIME.
--- NOTE | 2018-02-25 02:54 | NUR ---
VITALS AND I AND O DONE
--- NOTE | 2018-02-25 02:56 | NUR ---
TOOK TO THE BATHROOM. FRESH COFFEE AND WATER
--- NOTE | 2018-02-25 03:50 | NUR ---
PT VOIDED, USED BED SNOW,ERICH CARE DONE, NO C/O CP, CONT PULSE OX IN PLACE
--- NOTE | 2018-02-25 04:23 | NUR ---
PT IS AWAKE IN BED. TYLENOL PRN FOR SHOULDER PAIN WAS GIVEN.
--- NOTE | 2018-02-25 05:00 | NUR ---
PT NOW IS MOVING HER RIGHT ARM SOME. NON LICENSED OPERATOR STRENGTH IS STILL VERY WEAK ON HER RIGHT SIDE. PT IS STILL NOT ABLE TO HOLD UP HER LEGS ON HER OWN. SHE HAS SOME STRENGTH THOUGH VERY WEAK WITH DOSIFLEXION AND PLANTAR FLEXION. PAIN NOW SEEMS CONTROLLED WITH PRN PAIN MEDS AVAILABLE. NO NEW CONCERNS FOR THIS PT SO FAR.
--- NOTE | 2018-02-25 05:42 | NUR ---
AT START PT WAS UNABLE TO SPEAK, HER RIGHT ARM AND BOTH LEGS WERE ABSENT OF MOVEMENT. PT WAS DISORIENTED TO TIME, DAY, DATE AND WAS UNABLE TO DO SIMPLE ADDITION. PT WANTED TO STAND UP SEVERAL TIMES THIS SHIFT. WE HAD TO EXPLAIN TO PT THAT THIS WOULD BE A VERY UNSAFE THING TO DO DUE TO HER ABSENT STRENGTH IN HER LEGS. V/S OVERALL ARE WDL. AT 2099 PT HAD A LOW SBP OF 90, MD DE LA ROSA IS AWARE. PT IS SL. URINE OUTPUT IS ADEQUATE. LOBES ARE CLEAR. AT THIS TIME, PT IS ABLE TO MOVE HER RIGHT ARM SOME BUT STILL HAS HARDLY ANY CONTROL SYSTEM MANAGER STRENGTH. HER LEGS HAVE NOW VERY WEAK DORSIFLEXION AND PLANTAR FLEXION. PT IS STILL NOT ABLE TO HOLD LEGS UP. LEFT ARM IS WEAK WELL. PT IS STILL DISORIENTED TO TIME, DATE, MONTH AND IS STILL NOT ABLE TO DO SIMPLE ADDITION (1+1). AT START OF SHIFT PT WAS NON-VERBAL. AT AROUND 2099 -[id number] OR SO PT SUDDENLY BECAME VERBAL AND HAS REMAINED SUCH EVER SINCE. THERE ARE NO NEW CONCERNS FOR THIS PT SO FAR.
--- NOTE | 2018-02-25 07:36 | NUR ---
REPORT RECEIVED FROM LUISA WRIGHT. PT AWAKE AND SITTING IN BED. VERBAL. SPEAKING IN WHISPER WITH FLAT EFFECT.
--- NOTE | 2018-02-25 08:13 | NUR ---
PATIENT IN BED, WASHCLOTH GIVEN FOR FACE AND HANDS.GARBAGE EMPTIED AND ROOM TIDIED. 1/2 CUP OF COFFEE GIVEN WHILE WAITNG FOR BREAKFAST. CALL LIGHT IN REACH.
--- NOTE | 2018-02-25 10:00 | NUR ---
AM MEDS ADMINISTRED. PT VERBALIZED UNDERSTANDING OF MEDS. FLAT AFFECT. WILL FOLLOW COMMANDS. WEAKNESS IN LEGS. PT WAS IN TO WORK WITH PATIENT. UNABLE TO STAND. 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 PT SAID THERE IS PAIN WHEN SQUEEZING WITH RIGHT, BUT WAS ABLE TO WHEN WRIST WAS SUPPORTED.
--- NOTE | 2018-02-25 11:37 | NUR ---
PT UP TO BEDSIDE COMMODE. TRIED TO HAVE PT WALK WITH 3 PERSON ASSIST AND FWW. PT TOOK A COUPLE STEPS BUT UNABLE TO BALANCE AND WALK SHE WOULD NOT USE HER RIGHT ARM FROM PRIOR INJURY AND WOULDN'T PUT MUCH WEIGHT ON RIGHT LEG. STATES IT WILL NOT HOLD HER.
--- NOTE | 2018-02-25 13:20 | NUR ---
2 PERSON ASSIST WITH SOFIE ALVAREZ TO BEDSIDE COMODE USING 4 LEG CANE. PATIENT VERY UNSTEADY. PATIENT USING HER RIGHT ARM WITH NO PROBLEM TO TEXT, AND TO LIFT HER RIGHT LEG WHILE TRYING TO GET OUT OF BED. DR DE LA ROSA IN . PATIENT IN CHAIR, LEGS ELEVATED.
--- NOTE | 2018-02-25 14:11 | NUR ---
PATIENT SITTING UP IN CHAIR, PAINT SUPPLIES NEARBY. VITALS AND I/O DONE. DIETARY IN RM. CALL LIGHT IN REACH
--- NOTE | 2018-02-25 15:00 | NUR ---
AFTERNOON REQUIP GIVEN. PT UP TO BEDSIDE COMMODE WITH BARBERING TEACHER'S NISHA. PT USED CANE TO HELP STAND. WOULD NOT USE RIGHT ARM, BUT WAS WEIGHT BEARING ON BOTH FEET. WEAK/SHUFFLING GAIT. PT STILL HAS FLAT AFFECT, BUT IS VERBALIZING APPROPRIATELY. WOULD LIKE TO SHOWER THIS AFTERNOON. TALKING WITH SON ON PHONE.
--- NOTE | 2018-02-25 15:00 | NUR ---
PT UP FROM BEDSIDE COMMODE WITH 2PA AND CANE. PT STATES DESIRE TO GET UP AND WALK BUT IS EASILY DISCOURAGED. ABLE TO STAND UP AND WEIGHTBEARING ON BOTH LEGS. GAIT IS WEAK. WALKED TO BATHROOM AND NEEDED TO SIT DOWN BEFORE GOING BACK TO BED. DECIDED TO ATTEMPT SHOWER LATER. EDUCATED ABOUT HOW TO USE CANE. NEEDS REINFORCEMENT. PROVIDED ICE PACK FOR SHOULDER PAIN. CALL LIGHT IN REACH.
--- NOTE | 2018-02-25 16:25 | NUR ---
PATIENT IN BED, CRYING, REPORTS SHES BEEN WAITING 45 MIN FOR "THE OTHER 2 GALS" TO COME BACK FOR A SHOWER, AND NOW REFUSES TO GET UP. WILL REAPPROACH
--- NOTE | 2018-02-25 16:30 | NUR ---
PATIENT STILL CRYING, REPORTS [facility]'VE BE[facility] YELL[facility] AND NO ONE HAS COME..YOU ALL JUST WANT ME TO GET UP ON MY OWN!" THIS MULTIFOLD OPERATOR 2 AND MULTIFOLD OPERATORDavon BRAGA- PERSON ASSIST TO SHOWER USING CHAIR. PATIENT IN MUCH BETTER SPIRITS AFTER SHOWER. PATIENT ALSO REPORTED EARLIER TODAYTHAT SHE TRIED TO COMMIT SUICIDE ABOUT 2 WEEKS AGO. CALL LIGHT IN REACH AND WARM BLANKET GIVEN.
--- NOTE | 2018-02-25 16:43 | NUR ---
PT APPEARS TO BE SLEEPING. IN BED WITH PHONE IN LAP.
--- NOTE | 2018-02-25 18:07 | NUR ---
helped take patient to the bathroom, assisted with SOFIE armas to the BSC and then patient walked from the BSC to the chair about 5 feet with her cane
--- NOTE | 2018-02-25 18:41 | NUR ---
IN TO CHECK ON PT. HAD LONG DISCUSSION. PT IS IN BETTER SPIRITS. SITTING UP IN CHAIR DRAWING. SHOWED SOME PERSONAL ARTWORK AND DISCUSSED PAST CAREER AN ARTIST.
--- NOTE | 2018-02-25 18:46 | NUR ---
PATIENT SITTING UP IN CHAIR. VITALS AND I/OS DONE. PATIENT AND THIS REGISTERED NURSE NURSERY HAD A VERY IN DEPTH TALK ABOUT DEPRESSION AND WORK. FRESH WATER GIVEN CALL LIGHT IN REACH
--- NOTE | 2018-02-25 19:10 | NUR ---
RECEIVED REPORT FROM RN. PATIENT IS RESTING IN CHAIR, BREATHING IS EVEN AND UNLABORED. DENIES NEEDS AT THIS TIME. CALL LIGHT WITHIN REACH.
--- NOTE | 2018-02-25 19:42 | NUR ---
CHARGE NRSE ROUNDING NOTE: PT IN CHAIR, CALLED FOR HELP, FOUND STANDING BY SIDE OF CHAIR, USING CANE, VERY UNSTEADY. PT REMINDED OF 2PA AND CANE USE FOR AMBULATION/FALL RISK, PT NOT RECEPTIVE TO INSTRUCTIONS. PT WALKED WITH 2 PA AND CANE ON LEFT HAND, C/O R ARM/SHOULDER PAIN. R ARM ASSESSED TO HAVE LIMITED MOVEMENT, AND VERY SHAKY. PT WAS ABLE TO WALK FROM CHAIR TO EDGE OF BED WITH UNSTEADY WEAK GAIT. STARTED TO STOOPING DOWN AND INCREASE SHAKYNESS AND WEAKNESS PRESENT. PT WANTED NURSING STAFF TO WALK HER TO SINK. NOT RECEPTIVE TO SAFETY INSTRUCTINS GIVEN ABOUT FALL RISK PRECAUTIONS AGAIN, INSTRUCTIONS GIVEN VERBALLY TO PT SEVERAL TIMES. PT CONTINUES TO TRY AND WALK TOWARDS SINK EVEN WITH INCREASEING SOB, INCREASED WEAKNESS-SHAKINESS AND UNSTEADINESS OF GAIT. PT GUIDED TO BED BY 2 NURSING STAFF. FALLK PRECAUTIONS SAFETY REINFORCED AGAIN WITH PT. AGAIN NOT RECEPTIVE "I NEED TO GET OUT OF HERE BY TUESDAY THE LATEST", "DO NOT PUT THE ALARM ON, IT MAKES ME FEEL LIKE AN UNRULY CHILD", "YOUR JOB IS TO WALK ME MUCH I WANT" "THE THERAPIST SAID WALK MUCH I COULD TODAY AND UNTIL I GET OUT", VERY ARGUMENTATIVE, NOT VERY RECEPTIVE TO INSTRUCTIONS. PT BACK ON BED, REPOSITIONED, BED ALARM ON. PRIMARY RN TO BE NOTIFIED. WILL ADD GAIT BELT WHEN TRANSFERRING/WALKING PT A NURSING MEASURE TO DECREASE FALL RISK. PT INSTRUCTED OF ADDED SAFETY MEASURE, AGREES TO USING A GAIT BELT NEXT TIME SHE GETS OOB. NO SOB PRESENT ONCE SHE GOT INTO BED WITH 2 PORSON ASSIST. SAFETY
--- NOTE | 2018-02-25 20:18 | NUR ---
ASSISTED PATIENT BACK TO BED FROM BEDSIDE COMODE, REQUIRED MINIMAL ASSISTANCE BACK TO BED, 1PA WITH CANE, SECOND NURSE STANDING BY FOR SAFETY. NOW RESTING IN BED, BREATHING IS EVEN AND UNLABORED. DENIES FURTHER NEEDS AT THIS TIME. CALL LIGHT WITHIN REACH, BED ALARM ON.
--- NOTE | 2018-02-25 20:57 | EKG ---
[facility] [address] [place] [address] Signed Sinus rhythm with marked sinus arrhythmia Otherwise normal ECG When compared with ECG of 11-FEB-2018 21:50, premature atrial complexes are no longer present Confirmed by TRAE DE LA ROSA MD ([id number]) on 02/25/2018 8:57:10 PM Electronically Signed By: TRAE DE LA ROSA MD 02/25/18 2057 PATIENT NAME: RONALD FLORIAN Electrocardiogram DATE OF : 49 PHYSICIAN: TRAE DE LA ROSA MD REPORT #: [id number] REPORT IS CONFIDENTIAL AND NOT TO BE RELEASED WITHOUT AUTHORIZATION
--- NOTE | 2018-02-25 21:30 | NUR ---
ASSISTED PATIENT TO BEDSIDE COMODE WITH 2PA/CANE. NOW RESTING IN BED AGAIN, BREATHING IS EVEN AND UNLABORED. ASSISTED PATIENT WITH DENTURE CARE, PROVIDED SNACK, PROVIDED WARM BLANKET. PATIENT OFFERED EAR PLUGS FOR SLEEP PROMOTION. DENIES FURTHER NEEDS. CALL LIGHT WITHIN REACH, BED ALARM ON.
--- NOTE | 2018-02-26 01:00 | NUR ---
PATIENT STATES "I CAN'T BE IN THIS ROOM ANYMORE. I NEED TO MOVE AROUND." ASSISTED PATIENT TO WHEELCHAIR WITH 1PA, TOLERATED WELL, CONTINUES TO NOT PUT PRESSURE ON RIGHT LEG. PATIENT STATES "I AM SCARED TO PUT PRESSURE ON THAT LEG, I DON'T WANT TO FALL." REASSURED PATIENT REGARDING MOBILITY AND GETTING STRONGER WITH PT. PUSHED PATIENT IN WHEELCHAIR AROUND UNIT, NOW RESTING IN CHAIR. PATIENT APPEARS TO BE MORE RELAXED, NO APPARENT DISTRESS.
--- NOTE | 2018-02-26 02:00 | NUR ---
PATIENT RESTING IN CHAIR, BREATHING IS EVEN AND UNLABORED. NO NEEDS AT THIS TIME. CALL LIGHT WITHIN REACH.
--- NOTE | 2018-02-26 04:10 | NUR ---
ASSISTED PATIENT TO BEDSIDE COMODE, 1PA/CANE. NOW RESTING IN CHAIR AGAIN, BREATHING IS EVEN AND UNLABORED. DENIES FURTHER NEEDS. CALL LIGHT WITHIN REACH.
--- NOTE | 2018-02-26 05:06 | NUR ---
PATIENT REPORTS 8/10 PAIN IN RIGHT SHOULDER, PRN TYLENOL GIVEN PER EMAR. DENIES FURTHER NEEDS. CALL LIGHT WITHIN REACH.
--- NOTE | 2018-02-26 06:04 | NUR ---
PATIENT HAS BEEN SLEEPING OFF AND ON THROUGHOUT SHIFT. VSS, URINE OUTPUT QS. PAIN WELL CONTROLLED WITH PRN TYLENOL. PATIENT IS ALERT AND ORIENTED, HX OF DEPRESSION, PATIENT EASILY BECOMES TEARFUL, RESPONDS TO THERAPEUTIC COMMUNICATION AND REASSURANCE. CONTINUES TO HAVE RIGHT SIDED WEAKNESS, CMS INTACT. NO EPISODES OF PATIENT BEING NON-VERBAL. AFTER ENCOURAGING PATIENT TO USE RIGHT SIDE EXTREMITIES, PATIENT APPEARS TO BE MORE STEADY ON FEET, 1PA/CANE/GAIT BELT IS SUFFICIENT THIS SHIFT. SCATTERED BRUISING NOTED, NO ACUTE CHANGES. IV IS SALINE LOCKED, TOLERATING CARDIAC DIET WELL. NO ACUTE CHANGES FROM BEGINNING OF SHIFT.
--- NOTE | 2018-02-26 07:42 | NUR ---
I ANOTHER SOLUTION COORDINATOR ANSWERED CALL LIGHT. WE HELPED HER FROM BSC TO HER CHAIR. ALSO CHANGED HER LINENS. PATIENT SAID SHE MIGHT TAKE A SHOWER SOMETIME TODAY.
--- NOTE | 2018-02-26 08:07 | NUR ---
PT SITTING UP IN RECLINER EATING BREAKFAST INDEPENDENTLY. NEURO ASSESSMENT BENIGN. PT ALERT AND ORIENTED TO ALL. PT REPORTING 7/10 PAIN IN RIGHT SHOULDER, MEDICATED WITH SCHEDULED NAPROXEN. PT EXPRESSES CONCERN WITH GETTING BACK HOME BY TOMORROW TO HELP HER DAUGHTER ORGANIZE HER HOUSE TO PREVENT FALLS. PT AMB THIS AM WITH SBA AND CANE. IV SITE INTACT, NO REDNESS OR INFLAMMATION. CALL LIGHT WITHIN REACH.
--- NOTE | 2018-02-26 09:10 | NUR ---
PT WALKED FROM BATHROOM TO HALLWAY APPX. 20 FT WITH CANE AND 1PA. SOFIE TILLEY FOLLOWED WITH WHEELCHAIR. AFTER 20FT PT HAD TO REST. AFTER RESTING WALKED BACK TO BED WITH CANE. PT WANTED TO SIT UP IN CHAIR BUT DECIDED SHE WAS TOO TIRED. PT CURRENTLY RESTING IN BED. GIVEN CALL LIGHT. REMINDED TO CALL WHEN SHE IS READY TO GET IN CHAIR. PT BECAME EMOTIONAL WHEN SHE GOT TIRED AND WAS EASILY DISCOURAGED. DOES NOT FEEL READY TO GO HOME, BUT GAIT IS MUCH STRONGER, STILL SLOW.
--- NOTE | 2018-02-26 10:05 | NUR ---
PT SITTING IN RECLINER RESTING HER EYES. DENIES NEEDS OR CONCERNS AT THIS TIME. CALL LIGHT WITHIN REACH.
--- NOTE | 2018-02-26 12:15 | NUR ---
PT AMB TO RESTROOM AND BACK TO RECLINER WITH SBA WITH CANE. PT EATING LUNCH INDEPENDENTLY. FRIEND AT BEDSIDE VISITING WITH PT. CALL LIGHT WITHIN REACH.
--- NOTE | 2018-02-26 13:13 | NUR ---
PATEINT IN CHAIR LAYING DOWN, I TOOK HER VITAL SIGNS SHE EXPRESSED SHE WOULD LIKE TO GO ON A WALK LATER WHEN THERE IS STAFF AVAILABLE TO ASSIST HER
--- NOTE | 2018-02-26 15:06 | NUR ---
PT RESTING IN BED, EYES CLOSED, RESP EVEN AND UNLABORED.
--- NOTE | 2018-02-26 15:19 | NUR ---
GAVE PATIENT A SHOWER, SHE DID WELL IN THE SHOWER, SHE WASHED HER BODY AND WASHED HER HAIR AND DRIED HERSELF AND ALSO PUT GEL IN HER HAIR, SHE WAS WALKING AND WASNT USING HER CANE AND TOLERATED IT WELL, SHE WANTED TO SIT UP IN THE CHAIR AFTER SHE IS THINKING OF DOING SOME PAINTING AND PLAYING ON HER PHONE FOR NOW
--- NOTE | 2018-02-26 16:09 | NUR ---
AFTERNOON REQUIP ADMINISTERED. PT SITTING UP IN CHAIR PLAYING GAMES ON CELL PHONE.
--- NOTE | 2018-02-26 16:23 | NUR ---
PATIENT AMBULATED WITH CANE AND STAND BY ASSIST FROM CHAIR TO DOOR OF ROOM AND BACK INTO BATHROOM WITHOUT DIFFICULTY. PATIENT THEN VOIDED AND ASKED TO GO FOR A WALK. SHE WALKED DOWN HALLWAY FROM HER ROOM #119 TO END OF ROOM #122 WITHOUT DIFFICULTY STOPPING TWICE FOR A 10 SECOND REST. SHE TOLERATED WELL AND STATED, "I THINK I AM READY TO GO HOME NOW." SHE THEN SAID, "WELL, TOMORROW". PATIENT STATED THAT SHE DID NOT WANT TO GO TO A HALFWAY AND THAT SHE WOULD LEAVE AMA BEFORE THAT HAPPENED. I EXPLAINED THAT HER SAFETY WAS MOST IMPORTANT AND THAT SHE NEEDED TO BE ABLE TO BE SAFE AT HOME. PATIENT STATED, "LOOK HOW SMOOTH I AM WALKING". SHE SAID THAT SHE FELT TIRED AFTER HER WALK BUT THAT SHE STILL FELT STRONGER.
--- NOTE | 2018-02-26 18:16 | NUR ---
PT ASKED IF SHE COULD PROCEDURES NURSE ROOM INDEPENDENTLY TO STRETCH AND JUST "MOVE AROUND A LITTLE". I SPOKE WITH PT EXSTENSIVELY ABOUT THE SAFETY RISK OF HER ATTEMPING TO STAND OR AMB IN ROOM INDEPENDENTLY. PT BECAME VERY TEARFUL AND STATED THAT SHE WAS "FRUSTRATED AND DEPRESSED" BY HER LACK OF IMPROVEMENT AND FEELING LIKE SHE CANT DO ANYTHING ON HER OWN. PT VERBALIZED UNDERSTANDING THAT IT WAS UNSAFE FOR HER TO MOVE ABOUT ROOM INDEPENDENTLY. THIS RN PROVIDED SBA TO RESTROOM AND SHE AMB TO BED WITH CANE. BED ALARM ON. CALL LIGHT WITHIN REACH.
--- NOTE | 2018-02-26 19:20 | NUR ---
RECEIVED REPORT FROM RN. PATIENT RESTING IN BED, BREATHING IS EVEN AND UNLABORED. CALL LIGHT WITHIN REACH, BED ALARM ON.
--- NOTE | 2018-02-26 21:25 | NUR ---
PT IN BED, ON HER CELL PHONE. HAD COMPLAINED OF PAIN IN HER LEGS, WELL HER RIGHT SHOULDER. MED WITH 650 MG OF TYLENOL.
--- NOTE | 2018-02-26 21:50 | NUR ---
PATIENT RESTING IN BED, BREATHING IS EVEN AND UNLABORED. SAT WITH PATIENT AT BEDSIDE FOR THERAPEUTIC COMMUNICATION.
--- NOTE | 2018-02-26 22:35 | NUR ---
PATIENT RESTING IN BED, BREATHING IS EVEN AND UNLABORED. FLACC SCORE OF 0. CALL LIGHT WITHIN REACH, BED ALARM ON.
--- NOTE | 2018-02-26 23:20 | NUR ---
PATIENT RESTING IN BED, BREATHING IS EVEN AND UNLABORED. FLACC SCORE OF 0. CALL LIGHT WITHIN REACH, BED ALARM ON.
--- NOTE | 2018-02-27 00:26 | NUR ---
ASSISTED PATIENT TO BATHROOM WITH 2PA/CANE. PATIENT'S GAIT IS UNSTEADY, PATIENT CONTINUE TO TRY AND CLOSE EYES AND STATES "I FEEL LIKE I AM STILL HALF ASLEEP." WITH DIRECTION, PATIENT'S GAIT IS MORE STEADY. NOW RESTING IN BED, BREATHING IS EVEN AND UNLABORED. PATIENT STATES "THIS IS THE BEST I HAVE SLEPT IN A WHILE. I FEEL LIKE I AM ACTUALLY GETTING SOME SLEEP." DENIES NEEDS AT THIS TIME. CALL LIGHT WITHIN REACH, BED ALARM ON.
--- NOTE | 2018-02-27 02:07 | NUR ---
PATIENT ASSISTED TO BATHROOM WITH 1PA/CANE. GAIT CONTINUES TO BE UNSTEADY, MORE STEADY THAN LAST TIME UP TO BATHROOM. PATIENT NOW RESTING IN BED AGAIN, BREATHING IS EVEN AND UNLABORED. PATIENT STATES "THIS IS THE MOST I HAVE SLEPT IN TWO WEEKS. I AM GOING TO GO BACK TO BED." DENIES FURTHER NEEDS. CALL LIGHT WITHIN REACH, BED ALARM ON.
--- NOTE | 2018-02-27 04:20 | NUR ---
PATIENT REPORTS 6/10 PAIN IN LOWER BACK, PRN TYLENOL GIVEN, REPOSITIONED IN BED. DENIES FURTHER NEEDS. CALL LIGHT WITHIN REACH, BED ALARM ON.
--- NOTE | 2018-02-27 04:38 | NUR ---
PATIENT'S NIGHT WAS UNEVENTFUL. SHE HAS BEEN RESTING THROUGHOUT SHIFT. PATIENT HAS REPORTED SEVERAL TIMES "I AM FINALLY GETTING SOME SLEEP. THIS IS THE MOST I HAVE SLEPT IN TWO WEEKS." NO CHANGES IN NEURO ASSESSMENTS. CONTINUES TO HAVE RIGHT SIDED WEAKNESS. GAIT CAN BE SIGNIFICANTLY UNSTEADY AT TIMES REQUIRING 2PA/CANE TO BATHROOM; PATIENT STATES THIS IS NORMAL FOR HER WHEN SHE HAS BEEN SLEEPING AND THIS HAPPENS AT HOME. VSS, URINE OUTPUT QS, PAIN WELL CONTROLLED WITH PRN TYLENOL. NO ACUTE CHANGES FROM BEGINNING OF SHIFT.
--- NOTE | 2018-02-27 05:24 | NUR ---
PATIENT ASSISTED TO BEDSIDE COMODE WITH 1PA/CANE. NOW RESTING IN BED. REPORTS CONTINUED BACK DISCOMFORT. REPOSITIONED IN BED, WARM BLANKET PLACED BEHIND BACK. DENIES FURTHER NEEDS. CALL LIGHT WITHIN REACH, BED ALARM ON.
--- NOTE | 2018-02-27 06:15 | NUR ---
PATIENT RESTING IN BED, BREATHING IS EVEN AND UNLABORED. DENIES NEEDS AT THIS TIME. CALL LIGHT WITHIN REACH, BED ALARM ON.
--- NOTE | 2018-02-27 08:05 | NUR ---
PT SITTING UP IN RECLINER EATING BREAKFAST, SRAVANI WELL. PT REPORTING IMPROVED PAIN OF RIGHT SHOULDER THIS AM, 01/07. ALERT AND ORIENTED, APPEARS TO BE IN GOOD SPIRITS. STATES "I SLEPT REALLY GOOD LAST NIGHT AND I'M FEELING REALLY GOOD." NEURO ASSESSMENT BENIGN. CALL LIGHT WITHIN REACH.
--- NOTE | 2018-02-27 08:31 | NUR ---
THIS NON DESTRUCTIVE TESTING INSPECTOR AND SOFIE WADDELL ASSISTED PATIENT FROM THE BED TO THE BEDSIDE COMMODE. 2 PERSON WITH A CANE. PATIENT SITTING UP IN CHAIR. ORAL CARE DONE. GARBAGE CHANGED. CALL LIGHT WITHIN REACH. NO OTHER NEEDS AT THIS TIME.
--- NOTE | 2018-02-27 10:08 | NUR ---
PT WORKING WITH Adiel
--- NOTE | 2018-02-27 10:15 | NUR ---
PATIENT ASSISTED TO BATHROOM. 1 PERSON WITH CANE. PATIENT UP IN CHAIR. VITALS AND I&Os DONE. FRESH ICE WATER. CALL LIGHT WITHIN REACH. NO OTHER NEEDS AT THIS TIME.
--- NOTE | 2018-02-27 10:18 | NUR ---
vitals and i and o done
[2018-02-27] MEDS ORDERED: TEMAZEPAM15 MG PO (11:48)
--- NOTE | 2018-02-27 12:30 | NUR ---
PATIENT UP IN ROOM. SHE STATES SHE LIVES ALONE. STATES SHE IS NOT CLOSE WITH HER SONS. STATES THEY DON'T WANT TO TALK TO HER MOST OF THE TIME BECAUSE OF HER DEPRESSION. SHE STATES SHE DOES NOT SEE [facility] CURRENTLY. SHE STATES SHE DOES NOT "GET ALONG" WITH HER PCP. STATES SHE UNDERSTANDS SHE NEEDS TO SEE HER AND THEY "AGREE TO DISAGREE". WE DISCUSSED THAT CHW WILL BE FOLLOWING HER, SHE STATES SPOKE WITH ALEC ON THE PHONE PRIOR TO HOSPITALIZATION. DISCUSSED THAT CHW CAN GO TO HER PCP APPOINTMENT AND THIS MIGHT HELP THE SITUATION. SHE IS IN AGREEMENT WITH THIS. PATIENT STATES SHE HAS A WALKER AND CANE AT HOME IF SHE NEEDS THEM. QUESTIONS ANSWERED. WILL CONTINUE TO FOLLOW. SPOKE WITH CHW ALEC WHO WILL SEE THE PATIENT IN THE ROOM TODAY. SHE IS AWARE OF FOLLOWING HER AFTER DISCHARGE.
--- NOTE | 2018-02-27 12:50 | NUR ---
PATIENT SITTING UP IN CHAIR. CALL LIGHT WITHIN REACH. NO OTHER NEEDS AT THIS TIME.
--- NOTE | 2018-02-27 13:01 | NUR ---
PT SITTING UP IN CHAIR DRAWING PICTURES WITH HER ART SUPPLIES. ATE ALL OF HER LUNCH. DENIES NEEDS OR CONCERNS AT THIS TIME. CALL LIGHT WITHIN REACH.
--- NOTE | 2018-02-27 13:06 | NUR ---
PT CALL LIGHT ON. PT IN RESTROOM AND WOULD LIKE ASSISTANCE BACK TO CHAIR. PT ASSISTED NEEDED. PT STATES SHE WOULD LIKE TO GO FOR A WALK. PTS NURSE NOTIFIED. CALL LIGHT WITHIN REACH.
--- NOTE | 2018-02-27 14:30 | NUR ---
PATIENT SITTING UP IN CHAIR DRAWING. CALL LIGHT WITHIN REACH. NO OTHER NEEDS AT THIS TIME.
--- NOTE | 2018-02-27 14:46 | NUR ---
PATIENT HAD QUESTIONS ABOUT MEDICARE COVERAGE SHE IS WORRIED ABOUT HER HOSPITAL BILL. EXPLAINED THAT WE BILL MEDICARE FOR HER SERVICES AND TO DO SO SHE HAS TO MEET SPECIFIC INPATIENT CRITERIA WHICH HAS BEEN MET WHEN PATIENT STATUS WAS CHANGED FROM JUDIE TO IN. PATIENT THEN HAD QUESTIONS ABOUT CARE AFTER DISCHARGE AND WANTED TO KNOW WHEN A CHW WOULD BE OUT TO SEE HER. ALEC Porter CHW WAS ASSIGNED TO THIS PATIENT. I LET PATIENT KNOW THAT I WOULD HAVE ALEC REACH OUT TO HER TO SHE HAS A BETTER IDEA OF WHAT TO EXPECT AND A TIME FRAME WHICH SHE COULD EXPECT TO HERE FROM CHW.
--- NOTE | 2018-02-27 15:03 | NUR ---
THIS EASTERN PHILOSOPHY PROFESSOR AMBULATED WITH PATIENT IN THE HALLWAYS. 1 PERSON WITH A CANE. CALL LIGHT WITHIN REACH. NO OTHER NEEDS AT THIS TIME.
--- NOTE | 2018-02-27 16:04 | NUR ---
PT SITTING UP IN CHAIR WATCHING TV. DENIES NEEDS OR CONCERNS AT THIS TIME. PT STATES "I'M JUST WAITING FOR MY DINNER TO GET HERE." CALL LIGHT WITHIN REACH.
[2018-02-27] MEDS ORDERED: ASPIR-LOW81 MG PO (16:08)
--- NOTE | 2018-02-27 19:40 | NUR ---
REPORT RECIEVED FROM DAY SHIFT NURSE. PATIENT RESTING IN BED. PATIENT REQUESTS IV TO BE TAKEN OUT. PATIENT DENIES ANY OTHER NEEDS. CALL LIGHT WITHIN REACH.
--- NOTE | 2018-02-27 20:50 | NUR ---
PATIENT ASSESSMENT COMPLETED. MEDICATIONS GIVEN PER ORDER. SNACK AND FRESH WATER PROVIDED. PATIENTS IV DC'D PER MD ORDER. MD IN THE ROOM. PATIENT RATES PAIN 4/10, MEDCIATIONS GIVEN PER ORDER. PATIENT DENIES ANY OTHER NEEDS AT THIS TIME. CALL LIGHT WITHIN REACH.
--- NOTE | 2018-02-27 21:10 | NUR ---
PATIENT ASSISTED TO THE RESTROOM. PATIENT SBA WITH CANE. PATIENT GAIT UNSTEADY. PATIENT VOIDED. PATIENT VITALS AND I&OS DOCUMENTED. PATIENT GIVEN FRESH WATER. PATIENT RESTING IN BED. PATIENT DENIES ANY OTHER NEEDS AT THIS TIME. CALL LIGHT WITHIN REACH.
--- NOTE | 2018-02-27 22:00 | NUR ---
PATIENT COMPLAINS OF RESTLESS LEGS. PATIENT OFFERED WARM BLANKETS. PATIENT REQUESTS SHOWER. PATIENT ASSISTED WITH SET UP TO SHOWER. PATIENT ASSISTED TO SHOWER A SBA WITH CANE. PATIENT SHOWERED INDEPENDENTLY. PATIENT ASSISTED TO BED. PATIENT STATED FEELING BETTER. PATIENT IS NOW BACK IN BED RESTING. PATIENT DENIES ANY OTHER NEEDS AT THIS TIME. CALL LIGHT WITHIN REACH. BED ALARM ON.
--- NOTE | 2018-02-28 00:37 | NUR ---
PATIENT RESTING IN BED WITH EYES CLOSED. RR 16, BREATHING UNLABORED AND EVEN. CALL LIGHT WITHIN REACH. BED ALARM ON.
--- NOTE | 2018-02-28 01:30 | NUR ---
BED ALARM ALERTED STAFF TO ROOM. PATIENT REQUESTED ASSISTANCE TO THE RESTROOM. PATIENT ASSISTED SBA WITH CANE. PATIENT ASSISTED BACK IN BED. BED ALARM ON. PATIENT DENIES ANY OTHER NEEDS AT THIS TIME. CALL LIGHT WITHIN REACH.
--- NOTE | 2018-02-28 02:45 | NUR ---
PATIENT RATES PAIN 6/10 AND REQUESTED PAIN MEDICATION. PRN PAIN MEDICATION GIVEN PER ORDER. HOT PACK GIVEN PER PATIENT REQUEST. PATIENT DENIES ANY OTHER NEEDS. CALL LIGHT WITHIN REACH. BED ALARM ON.
--- NOTE | 2018-02-28 03:15 | NUR ---
PATIENT COMPLAINS OF BACK PAIN AND REQUESTS TO REPOSITION TO RECLINER. PATIENT ASSISTED TO RECLINER SBA WITH CANE. HOT PACK APPLIED TO PAITENTS BACK PER REQUEST. WARM BLANKET PROVIDED. CALL LIGHT WITHIN REACH. PATIENT DENIES ANY OTHER NEEDS AT THIS TIME.
--- NOTE | 2018-02-28 04:50 | NUR ---
PATIENT RESTED WELL THROUGH THE NIGHT. PATIENT GIVEN PRN PAIN MEDICATIONS X1. PATIENT HAS NO IV ACCESS. CARDIAC DIET. PATIENT ON RA. AMBULATES WITH SBA AND CANE. PATIENT COMPLAINES OF BACK AND RIGHT SHOULDER PAIN. PATIENT A FALL RISK. PATIENT CONTINUES TO HAVE RIGHT SIDED WEAKNESS. NO CHANGE IN PATIENTS NEURO STATUS. PATIENTS GAIT CAN BE UNSTEADY AT TIMES. VITAL SIGNS WNL AND I&OS QS. BED ALARM ON WHILE IN BED.
--- NOTE | 2018-02-28 05:30 | NUR ---
PATIENT I&OS DOCUMENTED. PATIENT ASSISTED TO RESTROOM, SBA WITH CANE. PATIENT UNSTEADY GAIT. VITAL SIGNS TAKEN AND RECORDED. COFFEE GIVEN PER PATIENTS REQUEST. ASSESSMENT COMPLETED. PATIENT IN RECLINER AND IS WATCHING TV. CALL LIGHT WITHIN REACH. PATIENT DENIES ANY OTHER NEEDS AT THIS TIME.
--- NOTE | 2018-02-28 07:16 | NUR ---
REPORT RECEIVED FROM LUISA JIMÉNEZ AND STUDENT TERE. PT SITTING UP IN BED WATCHING TV. PT IS EMOTIONAL ABOUT GOING HOME TODAY. CALL LIGHT IN REACH. BED ALARM ON.
--- NOTE | 2018-02-28 08:18 | NUR ---
PATIENT SITTING UP IN CHAIR. CALL LIGHT WITHIN REACH. NO OTHER NEEDS AT THIS TIME.
--- NOTE | 2018-02-28 08:46 | NUR ---
PT SITTING UP IN CHAIR. SCOOTING AROUND ROOM. PT UP TO BATHROOM WITH CANE. INCONSISTENT GAIT. APPEARS FINE WHILE USING CANE. WANTS TO WALK IN HALLWAY BUT WILL RANDOMLY DECIDE SHE IS TOO WEAK AND FLOP DOWN TO CHAIR. PT IS VERY EMOTIONAL. WANTS TO TALK TO DR DE LA ROSA ABOUT DIAGNOSIS.
--- NOTE | 2018-02-28 08:52 | NUR ---
LUISA CUEVAS IN ROOM.
--- NOTE | 2018-02-28 10:22 | NUR ---
PT SITTING UP IN CHAIR LOOKING OUT WINDOW. TALKED TO HER REGARDING DISCHARGE AND QUESTIONS SHE NEEDED ANSWERED. ANSWERED ALL QUESTIONS AND HAD JUAQUIN HICKEY COME ANSWER SOME ALSO. PT DISSATISFIED WITH "THE GOVERNMENTS ABILITY TO CALL AND GET MEDICAL RECORDS" AND SHE DOESN'T WANT HER SONS TO FIND OUT WHY SHE WAS HERE. EXPLAINED THAT HER RECORDS ARE PROTECTED BY [employer] AND CALLED THE [employer] CON[employer] TO FLAG HER ACCOUNT SO NO INFORMATION IS RELEASED TO HER SONS. CHANGED HER FOLLOW UP APPOINTMENT PER PT REQUEST AND GAVE NEW CARD. CALLED IMAGING TO CALL HER TO SET UP HER FOLLOW UP ECHO APPT I DO NOT BELIEVE SHE WOULD CALL ON HER OWN. GAVE SCRIPT FOR ECHO. SL HAD BEEN REMOVED PRIOR. PACKING ATTENDANT ASSISTED HER GETTING DRESSED AND PACKING ALL BELONGINGS. PT FRIEND PICKED HER UP AND PACKING ATTENDANT PUSHED HER WHEELCHAIR TO FRONT. VS STABLE.
--- NOTE | 2018-02-28 17:07 | NUR ---
FAXED CHART NOTES TO [facility] INCLUDING FACESHEET, ORDER, H AND P, DC SUMMARY AND PACKET, PT AND OT EVAL AND NOTES. RECIEVED FAX CONFIRMATION ON THIS.
== END 2018-02-28 10:10 | disposition home health service (06) | DRG 65 ==
LOC: ED 15:35 → MS 15:36 → ED 17:12 → MS 17:12
PROVIDERS: ADMIT Internal Medicine
DX: I63.9 Cerebral infarction, unspecified (principal); R45.851 Suicidal ideations; R47.01 Aphasia; F44.4 Conversion disorder with motor symptom or deficit; F45.9 Somatoform disorder, unspecified; J44.9 Chronic obstructive pulmonary disease, unspecified; E03.9 Hypothyroidism, unspecified; G25.81 Restless legs syndrome; F32.9 Major depressive disorder, single episode, unspecified; R91.8 Other nonspecific abnormal finding of lung field; I67.1 Cerebral aneurysm, nonruptured; R29.6 Repeated falls; M25.551 Pain in right hip; M75.01 Adhesive capsulitis of right shoulder; Z79.82 Long term (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 of aspirin; Z79.1 Long term (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 of non-steroidal anti-inflammatories (NSAID); Z88.8 Allergy status to other drugs, medicaments and biological substances; Z79.899 Other long term (current) 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
CPT/HCPCS: 70450; 70496; 70498; 70551; 80053; 80061; 81001; 83036; 83735; 84484; 85025; 85610; 85730; 93005; 93010; 97110; 97116; 97161; 97166; G8987; G8988; J2405; J7030; Q9967

== ENCOUNTER 2018-03-25 11:07 | Emergency (ER) | payer MEDICARE, OTHER ==
[~2018-03-25] VITALS: Ht 157.5 cm; Wt 61.2 kg
[~2018-03-25 11:07] MED LIST changes: +TEMAZEPAM15 MG PO
[2018-03-25] MEDS ORDERED: NORCO 5-325 TA1 EACH PO (12:24)
[2018-03-25] MEDS ORDERED: ROBAXIN-750750 MG PO (12:24)
== END 2018-03-25 12:37 | disposition home or self-care (01) ==
LOC: ED 11:07
DX: S39.012A Strain of muscle, fascia and tendon of lower back, initial encounter (principal); E11.9 Type 2 diabetes mellitus without complications; J44.9 Chronic obstructive pulmonary disease, unspecified; Z88.8 Allergy status to other drugs, medicaments and biological substances; Z79.899 Other long term (current) 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; Z79.82 Long term (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 of aspirin; X50.9XXA Other and unspecified overexertion or strenuous movements or postures, initial encounter
CPT/HCPCS: 72100; 99283

== ENCOUNTER 2018-06-04 05:40 | Emergency (ER) | payer MEDICARE ==
[~2018-06-04] VITALS: Ht 157.5 cm; Wt 61.2 kg
[~2018-06-04 05:40] MED LIST changes: +ROBAXIN-750750 MG PO
[2018-06-04] MEDS ORDERED: FENTANYL1 EACH TD (05:49)
[2018-06-05] MEDS ORDERED: HYDROCODON-ACE1 EAC8 PO (14:37)
--- NOTE | 2018-06-06 13:43 | NUR ---
CHW and negotiations director met with patient in ED room. CHW and negotiations director discussed that ED physician Dr Hoyos had stated [employer] no longer has a hold on the patient as of mid morning and that patient has been medically cleared to go home. Patient became upset and stated she can't go home and that she thought she was staying until tomorrow when her apt with her back specialist was. Patient stated she does not want to go home and the house is a mess but when CHW and negotiations director discussed other services such as an assessment with [facility] for caregivers, patient declined any and all help because she stated she does not want [facility] involved with her finances. When we asked patient about any other relatives and or friends who can stay with the patient she stated many excuses and or reasons why she could not go to any other places. Patient was very upset about being discharged from the ED and called her POA Nathalia. CHW spoke with Nathalia who stated she understands the hospital policy and that the [employer] hold is done by [facility] and not the hospital and that we do not have control over what [facility] decisions were with taking the patient off the hold. Nathalia agreed that she understood and that she would meet the patient at her home within 35 mins after discharge from the ED. CHW also discussed with Mir Hansen at [facility] who also stated patient is cleared and the hold was discharged and that the patient can go home. Mir also stated that Miesha Eric will be setting up further wrap around services for patient through [facility].
== END 2018-06-06 13:15 | disposition home or self-care (01) ==
LOC: ED 05:40
DX: M54.5 Low back pain (principal); G89.29 Other chronic pain; R45.851 Suicidal ideations; E11.9 Type 2 diabetes mellitus without complications; Z88.8 Allergy status to other drugs, medicaments and biological substances; Z79.82 Long term (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 of aspirin; Z79.899 Other long term (current) 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
CPT/HCPCS: 72131; 80053; 80176; 81001; 85025; 96374; 96375; 99285; G0480; J1170; J1885

== ENCOUNTER 2018-06-15 20:40 | Emergency (ER) | payer MEDICARE ==
[~2018-06-15] VITALS: Ht 157.5 cm; Wt 61.2 kg
--- OUTSIDE RECORDS SUMMARY | ~2018-06-15 | XMS | Clinical Summary ---
Demographics + + + | Address | [address] | | | [place] [address] | + + + | Home Phone | | + + + | Preferred Language | Unknown | + + + | Marital Status | | + + + | Quaker Affiliation | 1013 | + + + | Race | Unknown | + + + | Ethnic Group | Unknown | + + + Author + + + | Author | [facility] | + + + | Organization | [facility] | + + + | Address [...] Team Providers + +------+ + | Care Service Station Cashier Name | Role | Phone | + +------+ + | Wendi Aiken PA-C | PP | | + +------+ + [...] + + +-------+---------+------+------+-------+ | levothyroxine | Take 100 mcg by | | | | | Activ | | (SYNTHROID) 88 MCG | mouth daily. | | | | | e | | tablet | | | | | | | + + +-------+---------+------+------+-------+ | ropinirole | Take 2 mg by mouth 4 | | | | | Activ | | (REQUIP) 2 MG tablet | (four) times daily. | | | | | e | + + +-------+---------+------+------+-------+ | aspirin 81 [...] | | | + + +-------+---------+------+------+-------+ | acetaminophen | Take 500 mg by | | | | | Activ | | (TYLENOL) 500 MG | mouth. | | | | | e | | tablet | | | | | | | + + +-------+---------+------+------+-------+ | lidocaine | Apply up to 3 | | | 06/0 | | Activ | | (LIDODERM) 5 % | patches TOPICALLY at | | | 4/20 | | e | | | one time, for up to | | | 18 | | | | | 12 hours within a | | | | | | | | 24-hour period | | | | | | + + +-------+---------+------+------+-------+ | methocarbamol | Take 750 mg by | | | | | Activ | | (ROBAXIN) 750 MG | mouth. | | | | | e | | tablet | | | | | | | + + +-------+---------+------+------+-------+ | mirabegron ER 25 | Take 25 mg by mouth. | | | | | Activ | | MG 24 hr tablet | | | | | | e | + + +-------+---------+------+------+-------+ | fentaNYL | apply 1 patch and | | 0 | 08/0 | | Activ | | (DURAGESIC) 25 | replace every 72 | | | 3/20 | | e | | MCG/HR | hours | | | 18 | | | + + +-------+---------+------+------+-------+ | NARCAN 4 MG/0.1ML | instill 1 spray in 1 | | 0 | 06/1 | | Activ | | LIQD | NOSTRIL if needed | | | 1/20 | | e | | | for opioid overdose | | | 18 | | | | | may re... (REFER TO | | | | | | | | PRESCRIPTION | | | | | | | | NOTES). | | | | | | + + +-------+---------+------+------+-------+ | naproxen | Take 500 mg by mouth | | | | | Activ | | (NAPROSYN) 500 MG | 2 (two) times daily | | | | | e | | tablet | with meals. | | | | | | + + +-------+---------+------+------+-------+ | atorvastatin | Take 40 mg by mouth | | | | 08/0 | Disco | | (LIPITOR) 40 MG | nightly. | | | | 8/20 | ntinu | | tablet | | | | | 18 | ed | + + +-------+---------+------+------+-------+ | clopidogrel | Take 75 mg by mouth | | | | 08/0 | Disco | | (PLAVIX) 75 MG | daily. | | | | 8/20 | ntinu | | tablet | | | | | 18 | ed | + + +-------+---------+------+------+-------+ Active Problems + + + | Problem | Noted Date | + + + | Closed compression fracture of L5 lumbar vertebra (HCC) | 06/07/2018 | + + + + + | Overview: Added automatically from request for surgery [id number] | + + + + + | Peripheral vertigo | [...] unspecified | 11/15/2013 | + + + Encounters +--------+ + + + + | Date | Type | Specialty | Care Team | Description | +--------+ + + + + | 06/13/ | Hospital | | Alfredo Casillas DO | Closed compression | | 2018 | Encounter | | | fracture of fifth | | | | | | lumbar vertebra, | | | | | | initial encounter | | | | | | ([facility]) | +--------+ + + + + | 06/13/ | Orders Only | | Jennifer Hicks CMA | | | 2017 | | | | | +--------+ + + + + | 06/13/ | Procedure | | | | | 2018 | Pass | | | | +--------+ + + + + | 06/13/ | Surgery | | Alfredo Casillas DO | KYPHOPLASTY | | 2017 | | | | | +--------+ + + + + | 06/12/ | Anesthesia | | Juventino Richmond, | | | 2018 | Event | | COMPUTING CONSULTANT | | +--------+ + + + + | 06/12/ | Orders Only | | Alfredo Casillas DO | | | 2017 | | | | | +--------+ + + + + | 06/09/ | Telephone | | Jennifer Hicks CMA | | | 2017 | | | | | +--------+ + + + + | 06/07/ | Hospital | | Alfredo Casillas DO | | | 2017 | Encounter | | | | +--------+ + + + + | 06/07/ | Office | | Alfredo Casillas DO | Closed compression | | 2018 | Visit | | | fracture of fifth | | | | | | lumbar vertebra, | | | | | | initial encounter | | | | | | ([facility]) (Primary Dx); | | | | | | Lumbar pain | +--------+ + + + + | 06/07/ | Telephone | | Jennifer Hicks CMA | Other (questions ) | | 2017 | | | | | +--------+ + + + + | 06/05/ | Telephone | | Jennifer Hicks CMA | Other (referral ) | | 2017 | | | | | +--------+ + + + + | 06/02/ | Telephone | | Savi Salmon, | Other (Request to | | 2017 | | | [place] | speak to [place]) | +--------+ + + + + 06/01/ | Telephone | | Maykel Hutchins MD | Other (Patient is | | 2017 | | | | returning a call to | | | | | | Vicki about | | | | | | referral. She needs | | | | | | to schedule ) | +--------+ + + + + | 05/31/ | Documentati | | Maykel Hutchins MD | | | 2017 | on Only | | | | +--------+ + + + + | 05/26/ | Hospital | | See, Medical | Pain | | 2017 | Encounter | | Record | | +--------+ + + + + | 05/26/ | Hospital | | See, Medical | Pain | | 2017 | Encounter | | Record | | +--------+ + + + + | 05/26/ | Hospital | | See, Medical | Pain | | 2017 | Encounter | | Record | | +--------+ + + + + | 05/26/ | Ancillary | | See, Medical | Pain | | 2018 | Orders | | Record | | +--------+ + + + + | 05/26/ | Procedure | | | | | 2017 | Pass | | | | +--------+ + + + + | 05/26/ | Procedure | | | | | 2017 | Pass | | | | +--------+ + + + + | 05/26/ | Ancillary | | See, Medical | Pain | | 2018 | Orders | | Record | | +--------+ + + + + | 04/05/ | Documentati | | Modesto Medel | | | 2017 | on Only | | MD Mila | | +--------+ + + + + from Last 3 Months Immunizations + + + + | Name | Dates Previously Given | Next Due | + + + + | Pneumococcal | 07/18/2014 | | | Polysaccharide | | | | 23-valent | | | + + + + Family History + + +------+ + | Medical History | Relation | Name | Comments | + + +------+ + | Malig hypertherm | Neg Hx | | | + + +------+ + Social History + +-------+ +--------+------+ | [...] Yes | 3-4 | 1.5 - | occ | | | Standard | 2.0 | [...] + + + | Blood Pressure | 100/54 | 06/13/2018 12:38 PM PDT | + + + + | Pulse | 52 | 06/13/2018 12:38 PM PDT | + + + + | Temperature | 36.7 C (98 F) | 06/13/2018 10:11 AM PDT | + + + + | Respiratory Rate | 16 | 06/13/2018 10:11 AM PDT | + + + + | Oxygen Saturation | 100% | 06/13/2018 12:38 PM PDT | + + + + | Inhaled Oxygen | - | - | | Concentration | | | + + + + | Weight | 53.5 kg (118 lb) | 06/13/2018 10:11 AM PDT | + + + + | Height | 154.9 cm (5' 1") | 06/13/2018 10:11 AM PDT | + + + + | Body Mass Index | 22.3 | 06/13/2018 10:11 AM PDT | + + + + Plan of Treatment +--------+---------+ + + + | Date | Type | Specialty | Care Team | Description | +--------+---------+ + + + | 06/21/ | Office | | Alfredo Casillas DO | | | 2018 | Visit | | [address] [facility] | | | | | | [place] [address] | | | | | | [phone] | | | | | | | | +--------+---------+ + + + + + + + + | Health [...] | + + + + + | Statin Therapy | | | | | (optimal intensity) | 7 | | | + + + + + | Vaccine: Influenza | | | | | (#1) | 8 | | | + + + + + Implants + +------+-------+ +--------+--------+--------+ | Implanted | Type | Area | Manufacture | Device | Expira | Model | | | | | r | | tion | / | | | | | | Identi | Date | Serial | | | | | | fier | | / Lot | + +------+-------+ +--------+--------+--------+ | Vertaplex Hv High Viscosity | | N/A: | [id number] | | 06/30/ | [id number] | | Radiopaque Bone | | Back | | | 2020 | [id number] | | CementImplanted: Qty: 1 on | | | | | | /N/A | | 06/13/2018 by Alfredo Casillas, | | | | | | /[id number] | | DO | | | | | | 2 | + +------+-------+ +--------+--------+--------+ Procedures + +--------+ + + + | Procedure Name | Priori | Date/Time | Associated Diagnosis | Comments | | | ty | | | | + +--------+ + + + | XR C-ARM FLUORO UP | Routin | 06/13/2018 | | Results for this | | TO 1 HOUR | e | 8:36 AM | | procedure are in the | | | | PDT | | results section. | + +--------+ + + + | POCT GLUCOSE | Routin | 06/13/2018 | | Results for this | | | e | 6:47 AM | | procedure are in the | | | | PDT | | results section. | + +--------+ + + + | BASIC METABOLIC | Timed | 06/07/2018 | | Results for this | | PANEL | | 3:01 PM | | procedure are in the | | | | PDT | | results section. | + +--------+ + + + | CBC W/AUTO DIFF | Timed | 06/07/2018 | | Results for this | | (REFLEX TO MANUAL) | | 3:01 PM | | procedure are in the | | | | PDT | | results section. | + +--------+ + + + | EKG STANDARD 12 LEAD | Routin | 06/07/2018 | | Results for this | | | e | 2:54 PM | | procedure are in the | | | | PDT | | results section. | + +--------+ + + + | MRI LUMBAR SPINE WO | Routin | 05/09/2018 | Pain | Results for this | | CONTRAST | e | 2:54 AM | | procedure are in the | | | | PDT | | results section. | + +--------+ + + + | MRI LUMBAR SPINE WO | Routin | 04/05/2018 | Pain | Results for this | | CONTRAST | e | 2:55 AM | | procedure are in the | | | | PDT | | results section. | + +--------+ + + + from Last 3 Months Results X-ray C-arm fluoro up to 1 hour (06/13/2018 8:36 AM) + + + | Impressions | Performed At | + + + | FINDINGS AND IMPRESSION: Fracture deformity of the L5 vertebral | [facility] | | body with kyphoplasty severe degenerative facet disease at L4-5 and | [facility] | | L5-S1. Disc space narrowing at L4-5 and L5-S1. Electronically | | | signed by Oskar Cardenas DO on 06/13/2018 9:34 AM | | + + + + + + | Narrative | Performed At | + + + | [facility]R C-ARM FLUORO UP TO 1 HOUR HISTORY: | [facility] | | 72 years. Female. Kyphoplasty. TECHNIQUE: 2 spot fluoroscopic | [facility] | | images of the lumbar spine. 333 seconds of fluoroscopy time is | | | utilized. | | + + + + + | Procedure Note | + + | Reji Pacheco Results In - 06/13/2018 9:40 AM PDT [facility] C-ARM | | FLUORO UP TO 1 HOURHISTORY:72 years. Female. Kyphoplasty.TECHNIQUE:2 spot fluoroscopic | | images of the lumbar spine. 333 seconds of fluoroscopy time is | | utilized.IMPRESSION:FINDINGS AND IMPRESSION:Fracture deformity of the L5 vertebral body | | with kyphoplasty severe degenerative facet disease at L4-5 and L5-S1. Disc space | | narrowing at L4-5 and L5-S1. | | AM | |2 spot fluoroscopic images of the lumbar spine. 333 seconds of fluoroscopy time is utilized . | | | |IMPRESSION: | |FINDINGS AND IMPRESSION: | |Fracture deformity of the L5 vertebral body with kyphoplasty severe degenerative facet dise ase at L4-5 and L5-S1. Disc space narrowing at L4-5 and L5-S1. | | | | | + + + + + + + | Performing | Address | City/State/Zipcode | Phone Number | | Organization | | | | + + + + + | [facility] | [address] | [place] [address] | | + + + + + POCT glucose (06/13/2018 6:47 AM) + + + + + | Component | Value | Ref Range | Performed At | + + + + + | GLUCOSE,POC SCREEN | 70Comment: Testing | 65 - 99 mg/dL | [facility] | | | performed at [facility];[address];[place] | | | | | [address] | | | + + + + + + + + + + | Performing | Address | City/State/Zipcode | Phone Number | | Organization | | | | + + + + + | [facility] | [address] | [place] [address] | | + + + + + CBC W/Auto Diff (Reflex to Manual) (06/07/2018 3:01 PM) + + + + + | Component | Value | Ref Range | Performed At | + + + + + | WBC | 5.54 | 3.80 - 11.00 K/uL | [facility] | | | | | LABORAT[facility] | + + + + + | RBC | 4.30 | 3.70 - 5.10 M/uL | [facility] | | | | | LABORATORY | + + + + + | HGB | 12.4 | 11.3 - 15.5 g/dL | [facility] | | | | | LABORATORY | + + + + + | HCT | 36.6 | 34.0 - 46.0 % | [facility] | | | | | LABORATORY | + + + + + | MCV | 85.2 | 80.0 - 100.0 fl | [facility] | | | | | LABORATORY | + + + + + | MCH | 28.9 | 27.0 - 34.0 pg | [facility] | | | | | LABORATORY | + + + + + | MCHC | 33.9 | 32.0 - 35.5 g/dL | [facility] | | | | | LABORATORY | + + + + + | RDW SD | 41.6 | 37 - 53 fl | [facility] | | | | | LABORATORY | + + + + + | PLT | 386 | 150 - 400 K/uL | [facility] | | | | | LABORATORY | + + + + + | MPV | 7.7 | fl | [facility] | | | | | LAB[facility]AT[facility] | + + + + + | DIFF TYPE | AUTOMATED | | [facility] | | | | | LAB[facility]AT[facility] | + + + + + | NEUTROPHILS | 38.59 | % | [facility] | | | | | LAB[facility] | + + + + + | LYMPHOCYTES | 50.45 | % | [facility] | | | | | LABORAT[facility] | + + + + + | MONOCYTES | 8.12 | % | [facility] | | | | | LABORATORY | + + + + + | EOSINOPHILS | 2.31 | % | [facility] | | | | | LABORAT[facility] | + + + + + | BASOPHILS | 0.53 | % | [facility] | | | | | LABORATORY | + + + + + | NEUTROPHILS ABS | 2.14 | 1.90 - 7.40 K/uL | [facility] | | | | | LABORAT[facility] | + + + + + | LYMPHOCYTES ABS | 2.80 | 1.00 - 3.90 K/uL | [facility] | | | | | LABORATORY | + + + + + | MONOCYTES ABS | 0.45 | 0.00 - 0.80 K/uL | [facility] | | | | | LABORATORY | + + + + + | EOSINOPHILS ABS | 0.13 | 0.00 - 0.50 K/uL | [facility] | | | | | LABORAT[facility] | + + + + + | BASOPHILS ABS | 0.03Comment: Testing | 0.00 - 0.10 K/uL | [facility] | | | performed at [facility], [address] | | LABORATORY | | | [address], | | | | | [place] [address] | | | + + + + + + + | Specimen | + + | Blood | + + + + + + + | Performing | Address | City/State/Zipcode | Phone Number | | Organization | | | | + + + + + | [facility] | [address] | [place] [address] | [phone] | | LABORATORY | [address] | | | + + + + + Basic metabolic panel (06/07/2018 3:01 PM) + + + + + | Component | Value | Ref Range | Performed At | + + + + + | SODIUM | 139 | 135 - 145 mmol/L | [facility] | | | | | LABORATORY | + + + + + | POTASSIUM | 3.9 | 3.5 - 4.9 mmol/L | [facility] | | | | | LABORATORY | + + + + + | CHLORIDE | 104 | 99 - 109 mmol/L | [facility] | | | | | LABORATORY | + + + + + | CO2 | 28 | 23 - 32 mmol/L | [facility] | | | | | LABORATORY | + + + + + | ANION GAP AGAP | 11 | 5 - 20 mmol/L | [facility] | | | | | LABORATORY | + + + + + | GLUCOSE | 80 | 65 - 99 mg/dL | [facility] | | | | | LABORATORY | + + + + + | BUN | 17 | 8 - 25 mg/dL | [facility] | | | | | LABORATORY | + + + + + | CREATININE | 0.7 | 0.50 - 1.00 mg/dL | [facility] | | | | | LABORATORY | + + + + + | BUN/CREAT | 24 | | [facility] | | | | | LABORATORY | + + + + + | CALCIUM | 8.9 | 8.5 - 10.5 mg/dL | [facility] | | | | | LABORATORY | + + + + + | EGFR | >60Comment: GFR <60: | >60 mL/min/1.73m2 | [facility] | | | CHRONIC KIDNEY DISEASE, | | LABORATORY | | | IF FOUND OVER A 3 MONTH | | | | | PERIOD.GFR <15: KIDNEY | | | | | FAILURE.FOR | | | | | AMERICANS, MULTIPLY THE | | | | | CALCULATED GFR BY | | | | | 1.210.This eGFR is | | | | | calculated using the | | | | | MDRD IDMS traceable | | | | | equation.Testing | | | | | performed at [facility], [address] | | | | [facility], [place]), | | | | | [place] [address] | | | + + + + + + + | Specimen | + + | Blood | + + + + + + + | Performing | Address | City/State/Zipcode | Phone Number | | Organization | | | | + + + + + | [facility] | [address] | [place] [address] | [phone] | | LABORATORY | [place]. | | | + + + + + EKG STANDARD 12 LEAD (06/07/2018 2:54 PM) + + + + + | Component | Value | Ref Range | Performed At | + + + + + | Ventricular Rate | 69 | BPM | [facility] | + + + + + | Atrial Rate | 69 | BPM | [facility] | + + + + + | P-R Interval | 162 | ms | [facility] | + + + + + | QRS Duration | 80 | ms | [facility] | + + + + + | Q-T Interval | 400 | ms | [facility] | + + + + + | QTC Calculation | 428 | ms | [facility] | | (Bezet) | | | | + + + + + | Calculated P [place] | 80 | degrees | [facility] | + + + + + | Calculated R [place] | -9 | degrees | [facility] | + + + + + | Calculated T [place] | 69 | degrees | [facility] | + + + + + | Diagnosis | Normal sinus rhythm with | | [facility] | | | sinus arrhythmiaNormal | | | | | ECGNo significant change | | | | | since previous ECG | | | | | Confirmed by ZACKARY SALGADO, | | | | | SHANICE (Cyndee) on 06/08/2018 | | | | | 1:02:50 PM | | | + + + + + + + + + + | Performing | Address | City/State/Zipcode | Phone Number | | Organization | | | | + + + + + | [facility] | [address] | [place] [facility] [address] | | + + + + + MRI lumbar spine without contrast (05/09/2018 2:54 AM)Only the most recent of 2 results wi thin the time period is included. + + + | Narrative | Performed At | + + + | This is a non-reportable procedure without a radiologist report and | [facility] | | is used for image storage only | RADIOLOGY | + + + + + + + + | Performing | Address | City/State/Zipcode | Phone Number | | Organization | | | | + + + + + | [facility] | [address] | [place] [address] | | + + + + + from Last 3 Months Insurance + +--------+ +------+-------+ + | Payer | Benefi | Subscriber | Type | Phone | Address | | | t Plan | ID | | | | | | / | | | | | | | Group | | | | | + +--------+ +------+-------+ + | MEDICARE | MEDICA | [id number] | | | [address] | | | RE | | | | [place] [address] | | | IP-OP | | | | | + +--------+ +------+-------+ + | COMMERCIAL OTHER | COMMER | [id number] | | | | | | CIAL | | | | | | | GENERI | | | | | | | C PLAN | | | | | + +--------+ +------+-------+ + + +--------+ +--------+ + + | Guarantor Name | Accoun | Relation to | Date | Phone | Billing Address | | | t Type | Patient | of | | | | | | | | | | + +--------+ +--------+ + + | YU HARMON | Person | Self [birth year] | Home: | [address] | | [place] | al/Fam | | 1945 | [phone] [address] [place], | | | [place] | | | [phone] | [place] [address] | + +--------+ +--------+ + +
--- OUTSIDE RECORDS SUMMARY | ~2018-06-15 | XMS | Encounter Summary ---
Demographics + + + | Address | [address] | | | [place] [address] | + + + | Home Phone | | + + + | Preferred Language | Unknown | + + + | Marital Status | | + + + | Anglican Affiliation | 1013 | + + + | Race | Unknown | + + + | Ethnic Group | Unknown | + + + Author + + + | Author | [facility] | + + + | Organization | [facility] | + + + | Address [...] Providers + +------+ + | Care Career And Transition Teacher Name | Role | Phone | + +------+ + | Wendi Aiken PA-C | PCP | | + +------+ + Reason for Visit +--------+ + | Reason | Comments | +--------+ + | Other | questions | +--------+ + Encounter Details +--------+ + + + + | Date | Type | Department | Care Team | Description | +--------+ + + + + | 06/07/ | Telephone | [facility] | Jennifer Hicks, FUNCTIONAL TESTER | Other (questions ) | | 2017 | | [facility] | | | | | | [facility]IC[facility] | | | | | | [address] | | | | | | [place] | | | | | | [address] | | | | | | [phone] | | | +--------+ + + + [...] + + | 06/21/ | Office | Dolorology | Alfredo Casillas DO | | | 2017 | Visit | | [address] | | | | | | [place] [address] | | | | | | [phone] | | | | | | | | +--------+---------+ + + + as of this encounter Visit Diagnoses Not on filein this encounter"
--- OUTSIDE RECORDS SUMMARY | ~2018-06-15 | XMS | Encounter Summary ---
Demographics + + + | Address | [address] | | | [place] [address] | + + + | Home Phone | | + + + | Preferred Language | Unknown | + + + | Marital Status | | + + + | Sikh Affiliation | 1041 | + + + [...] Team Providers + +------+ + | Care Mine Manager Name | Role | Phone | + +------+ + | Wendi Aiken | PCP | | + +------+ + Encounter Details +--------+ + + + + | Date | Type | Department | Care Team | Description | +--------+ + + + + | 05/10/ | Procedure | [facility] | | | | 2018 | Pass | [facility] | | | | | | IMAGING | | | | | | [phone] | | | +--------+ + + + [...]
--- OUTSIDE RECORDS SUMMARY | ~2018-06-15 | XMS | Encounter Summary ---
Demographics + + + | Address | [address] | | | [place] [address] | + + + | Home Phone | | + + + | Preferred Language | Unknown | + + + | Marital Status | | + + + | Yazidism Affiliation | [id number] | + + + | Race | Unknown | + + + | Ethnic Group | Unknown | + + + Author + + + | Author | [facility] | | | and [facility] | + + + | Organization | [facility] | | | and [...] Team Providers + +------+ + | Care Acetylene Burner Name | Role | Phone | + [...] Vasquez VALDEZ | | | | | [phone] | [place] [address] | | +--------+ + + + + [...]
--- OUTSIDE RECORDS SUMMARY | ~2018-06-15 | XMS | Encounter Summary ---
Demographics + + + | Address | [address] | | | [place] [address] | + + + | Home Phone | | + + + | Preferred Language | Unknown | + + + | Marital Status | | + + + | Confucianist Affiliation | 1013 | + + + | Race | Unknown | + + + | Ethnic Group | Unknown | + + + Author + + + | Author | [facility] | + + + | Organization | [facility] [employer] | + + + | Address [...] Team Providers + +------+ + | Care Weed Sprayer Name | Role | Phone | + [...] | + +--------+ + + + + MRI/CAT Scan (Routine) + +--------+ + + [...] + + | 05/26/ | Ancillary | [facility] | See, Medical | Pain | | 2018 | [facility] | [facility] MRI | Record | | | | | [address] | | | | | | [place] [address] | | | | | | [phone] | | | +--------+ + + + [...] | 2018 | Visit | | [address] [facility] | | | | | | [place] [address] | | | | | | [phone] | | | | | | | | +--------+---------+ + + + as of this encounter Results MRI lumbar spine without contrast (05/09/2018 2:54 AM) + + + | Narrative | [...] + + | [facility] | [address] | [facility] [address] | | + + + + + MRI lumbar spine without contrast (04/05/2018 2:55 [...] | + + + + + | [facility] | [address] | [place] [address] | | + + + + + in this encounter Visit Diagnoses + + | Diagnosis | + + | Pain | + + | Generalized pain | + +"
--- OUTSIDE RECORDS SUMMARY | ~2018-06-15 | XMS | Encounter Summary ---
Demographics + + + | Address | [address] | | | [place] [address] | + + + | Home Phone | | + + + | Preferred Language | Unknown | + + + | Marital Status | | + + + | Latter Day Affiliation | 1013 | + + + | Race | Unknown | + + + | Ethnic Group | Unknown | + + + Author + + + | Author | [facility] [employer] | + + + | Organization | [facility] [employer] | + + + | Address [...] Team Providers + +------+ + | Care Rasper Machine Operator Name | Role | Phone [...] + + | 05/26/ | Ancillary | [facility] | See, Medical | Pain | | 2018 | [facility] | [facility] [address] | Record | | | | | [address] | | | | | | [place] [address] | | | | | | [phone] | | | +--------+ + + + [...] | 2018 | Visit | | [address] [facility] | | | | | | [place] [address] | | | | | | [phone] | | | | | | | [...] + + | [facility] | [address] | [place] [address] | | + + + + + in this encounter Visit Diagnoses + + | Diagnosis | + + | Pain | + + | Generalized pain | + +"
--- OUTSIDE RECORDS SUMMARY | ~2018-06-15 | XMS | Encounter Summary ---
Demographics + + + | Address | [address] | | | [place] [address] | + + + | Home Phone | | + + + | Preferred Language | Unknown | + + + | Marital Status | | + + + | Latter Day Affiliation | 1013 | + + + | Race | Unknown | + + + | Ethnic Group | Unknown | + + + Author + + + | Author | [facility] [employer] | + + + | Organization | [facility] [employer] | + + + | [...] Team Providers + +------+ + | Care Artistic Director Name | Role | Phone | [...] Description | +--------+---------+ + + + | 06/13/ | Surgery | [facility] | Alfredo Casillas DO | KYPHOPLASTY | | 2018 | | [facility] | [address] | | | | | Operating Room [address] | [place] [address] | | | | | [address] | [phone] | | | | | [place] [address] | | | | | | [phone] | | | +--------+---------+ + + + [...] directed. Remove the small bandages on your [id number] to 48hours after the surgery. Don t shower or soak in a bathtub for1 to 2days after the surgery. Use an ice packor bag of frozen peas or something similar wrapped in a thin towel to reduce the swelling and pain around incision sites. Put the ice pack on the area for20 minutes,then remove it [id number]. Repeat as needed. Wear your brace, if you were told to do so by your doctor. And to help stay flexible, be nd as much as the brace allows you to. For the first1 to 2days after the surgery, keep your head raised up when you are lyi ng down. Take short walks. Start by walking [id number] at a time. Then gradually build up yo ur time and distance. Don t drive [id number] after surgery. And never drive while taking [...] healthcare provider Shaking chills Date Last Reviewed: 09/15/201519997322-7273 [employer]. [address] [place] [address]. All righ ts reserved. This information is [...] | 2017 | Visit | | [address] [facility] | | | | | | [place] [address] | | | | | | [phone] | | | | | | | [...] + + + in this encounter Results X-ray C-arm [...] | + + + | KORI WAYNE-FAWTHROP MOHINI C-ARM FLUORO UP TO 1 HOUR HISTORY: | [facility] | | 72 years. Female. Kyphoplasty. TECHNIQUE: 2 spot fluoroscopic | RADIOLOGY | | images of the lumbar spine. 333 seconds of fluoroscopy time is | | | utilized. | | + + + + + | Procedure Note | + + | Reji Pacheco In - 06/13/2018 9:40 AM TRES SCALESFAWTHROPXR C-ARM | | FLUORO [...] RADIOLOGY | [address] | [place] [address] | | + + + + + POCT glucose (06/13/2018 6:47 AM) + + + + + | Component | Value | Ref Range | Performed At | + + + + + | GLUCOSE,POC SCREEN | 70Comment: Testing | 65 - 99 mg/dL | [facility] | | | performed at [facility];[address] | | | | | [facility];[place] | | | | | [address] | | | + + + + + + + + + + | Performing | Address | City/State/Zipcode | Phone Number | | Organization | | | | + + + + + | [facility] | [address] | [place] [address] | | + + + + + [...] | | | + +--------+ +--------+------+------+ | bupivacaine-EPINEPHrine (PF) | Given | | 10 mLs | | Back | | 0.5% -1:376303 30 mL in lidocaine | | 8 07:45 | | | | | 1 % 30 mL OR | | PDT | | | | | infiltration/irrigation PRN, | | | | | | | Starting 06/13/18 at 0745, | | | | | | | Intra-op | | | | | | + +--------+ +--------+------+------+ +---+---+ | | | +---+---+ + +-------+ [...] | | | | option 3., Starting Tu06/13/18 | | | | | | | [...] | | | | option 3., Starting 06/13/18 | | | | | | | at 0833, PACU | | | | | | + +-------+ +--------+---+---+ +---+---+ | | | +---+---+ + +-------+ +-------+---+------+ | iopamidol (ISOVUE-M 200) 41 % | Given | | 5 mLs | | Back | | intrathecal injection PRN, | | 8 08:21 | | | | | Starting 06/13/18 at 0821, | | PDT | | | | | Intra-op | | | | | | + +-------+ +-------+---+------+ +---+---+ | | | +---+---+ + +-------+ [...] PRN, Nausea, Vomiting, | | | Starting 06/13/18 at 0823, For | | | 365 days | | + +---+ | | | + +---+ | ondansetron (ZOFRAN-ODT) | | | disintegrating tablet 4 mg 4 mg, | | | Oral, Every 6 Hours PRN, Nausea, | | | Vomiting, Starting 06/13/18 | | | at 0823, For 365 days | | + +---+ | | | + +---+ in this encounter
--- OUTSIDE RECORDS SUMMARY | ~2018-06-15 | XMS | Encounter Summary ---
Demographics + + + | Address | [address] | | | [place] [address] | + + + | Home Phone | | + + + | Preferred Language | Unknown | + + + | Marital Status | | + + + | Congregational Affiliation | 1013 | + + + | Race | Unknown | + + + | Ethnic Group | Unknown | + + + Author + + + | Author | [facility] [employer] | + + + | Organization | [facility] [employer] | + + + | Address [...] Providers + +------+ + | Care Software Quality Automation Engineer Name | Role | Phone | + +------+ + | Wendi Aiken PA-C | PCP | | + +------+ + Encounter Details +--------+ + + + + | Date | Type | Department | Care Team | Description | +--------+ + + + + | 05/26/ | Procedure | [facility] | | | | 2018 | Pass | [facility] | | | | | | RADIOLOGY [address] | | | | | | [address] | | | | | | [place] [address] | | | | | | [phone] | | | +--------+ + + + [...] | 2017 | Visit | | [address] [facility] | | | | | | [place] [address] | | | | | | [phone] | | | | | | | | +--------+---------+ + + + as of this encounter Visit Diagnoses Not on filein this encounter"
--- OUTSIDE RECORDS SUMMARY | ~2018-06-15 | XMS | Encounter Summary ---
Demographics + + + | Address | [address] | | | [place] [address] | + + + | Home Phone | | + + + | Preferred Language | Unknown | + + + | Marital Status | | + + + | Druze Affiliation | 1041 | + + + [...] Team Providers + +------+ + | Care Surveillance Sensor Officer Name | Role | Phone | [...] + + | 04/17/ | Telephone | [facility] | Nick Martinez, | Yehuda (Back Brace) | | 2017 | | PHYSIATRY [address] | PA-C [address] | | | | | [place], | [address] [place] | | | | | [place] [address] | [place] [address] | | | | | [phone] | [phone] | | | | | | | [...]
--- OUTSIDE RECORDS SUMMARY | ~2018-06-15 | XMS | Encounter Summary ---
Demographics + + + | Address | [address] | | | [place] [address] | + + + | Home Phone | | + + + | Preferred Language | Unknown | + + + | Marital Status | | + + + | Temple Affiliation | 1041 | + + + [...] Team Providers + +------+ + | Care Sock Mender Name | Role | Phone | + [...] | | Procedures | [address] | [place], [place] | | | | | MRI Lumbar | [place], | [address] | | | | | Spine wo | [place] [address] | Phone: | | | | | Contrast | Phone: | [phone] | | | | | | [phone] | Fax: | | | | | | Fax: | [phone] | | | | | | [phone] | | +--------+--------+ + + + + Reason for Visit + + + | Reason | Comments | + + + | Follow-up | Discuss Injections | + + + Encounter Details +--------+---------+ + + + | Date | Type | Department | Care Team | Description | +--------+---------+ + + + | 04/03/ | Office | [facility] | Nick Martinez, | Lumbar radiculopathy | | 2018 | Visit | PHYSIATRY [address] | PA-C [address] | (Primary Dx); BACK | | | | [place], | [address] [place] | PAIN, LUMBAR; | | | | [place] [address] | [place] [address] | SACROILIITIS; DDD | | | | [phone] | [phone] | (degenerative disc | | | | [...] | Blood Pressure | 101/65 | 04/03/2018 1117 PDT | + + + + | Pulse | 87 | 04/03/2018 1117 PDT | + + + + | Temperature | - | - | + + + + | Respiratory Rate | - | - | + + + + | Oxygen Saturation | - | - | + + + + | Inhaled Oxygen | - | - | | Concentration | | | + + + + | Weight | 53.5 kg (118 lb) | 04/03/2018 111 PDT | + + + + | Height | 157.5 cm (5' 2") | 04/03/2018 1117 PDT | + + + + | Body Mass Index | 21.58 | 04/03/2018 111 PDT | + + + + in this encounter Instructions Patient Instructions - Nick Martinez PA-C - 04/03/2018 1120 PDT Follow-up at the hospital thirty minutes [...] of the procedure you must provide a bulk tank driver to take you home. For all [...] press against a nerve. Date Last Reviewed: 08/03/201519995747-1490 [employer]. [address] [place] [address], [place] [address]. All righ ts reserved. This information is not intended as a substitute for professional medical care. Always follow your healthcare professional's instructions. in this encounter Progress Notes Nick Martinez PA-C - 04/03/2018 1120 PDTFormatting of this note may be different from the original. CHIEF COMPLAINT: Chief Complaint [...] and working more hours due to the [employer] Round up. 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 She has appropriate fund of [...] ELECTRONICALLY SIGNED BY: Nick Martinez PA-C, 04/03/2018 in this encounter Plan of Treatment + +--------+ + + | Name | Priori | Associated Diagnoses | Order Schedule | | | ty | | | + +--------+ + + | FL BRITTNEY Lumbar Transforaminal | Routin | Lumbar | Expected: | | | e | radiculopathy | 04/03/2018, Expires: | | | | | 04/04/2019 | + +--------+ + + | MRI Lumbar Spine wo Contrast | Routin | Lumbar | Expected: | | | e | radiculopathy | 04/03/2018, Expires: | | | | | 04/04/2019 | + +--------+ + + as of this encounter Procedures [...] + + + in this encounter Results IMAGING REPORT - EXTERNAL SCAN (05/09/2018) + + + | Narrative | Performed At | + + + | Ordered by an | | | unspecified provider. | | + + + IMAGING REPORT - EXTERNAL SCAN (03/25/2018) + + + | Narrative | Performed At | + + + | Ordered by an | | | unspecified provider. | | + + + in this encounter Visit Diagnoses + + | Diagnosis | + + | Lumbar radiculopathy - Primary | + + | Thoracic or lumbosacral neuritis or radiculitis, unspecified | + + | BACK PAIN, LUMBAR | + + | Lumbago | + + | SACROILIITIS | + + | Sacroiliitis, not elsewhere classified | + + | DDD (degenerative disc disease), lumbar | + + | Degeneration of lumbar or lumbosacral intervertebral disc | + + | Facet arthritis of lumbar region (HCC) | + + | Lumbosacral spondylosis without myelopathy | + + | 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 | + + | Spinal stenosis, lumbar region, without neurogenic claudication | + + | Scoliosis of lumbar spine, unspecified scoliosis type | + +
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
--- OUTSIDE RECORDS SUMMARY | ~2018-06-15 | XMS | Encounter Summary ---
Demographics + + + | Address | [address] | | | [place] [address] | + + + | Home Phone | | + + + | Preferred Language | Unknown | + + + | Marital Status | | + + + | Jewish Affiliation | 1041 | + + + [...] Team Providers + +------+ + | Care Dependency Program Director Name | Role | Phone | [...] [place] | | | | | [phone] | [place] [address] | | +--------+ + + + + [...]
--- OUTSIDE RECORDS SUMMARY | ~2018-06-15 | XMS | Encounter Summary ---
Demographics + + + | Address | [address] | | | [place] [address] | + + + | Home Phone | | + + + | Preferred Language | Unknown | + + + | Marital Status | | + + + | Bahai Affiliation | 1013 | + + + | Race | Unknown | + + + | Ethnic Group | Unknown | + + + Author + + + | Author | [facility] [employer] | + + + | Organization | [facility] [employer] | + + + | Address [...] Team Providers + +------+ + | Care Gifted Teacher Name | Role | Phone | [...] + + | 05/26/ | Hospital | [facility] | See, Medical | Pain | | 2018 | Encounter | [facility] | Record | | | | | RADIOLOGY [address] | | | | | [address] | | | | | | [place] [address] | | | | | | [phone] | | | +--------+ + + + [...] Apply up to 3 | | | //20 | | | (LIDODERM) 5 % | [...] | 2018 | Visit | | [address] [facility] | | | | | | [place] [address] | | | | | | [phone] | | | | | | | [...] | + + + + + | [facility] | [address] | [place] [address] | | + + + + + in this encounter Visit Diagnoses + + | Diagnosis | + + | Pain | + + | Generalized pain | + +"
--- OUTSIDE RECORDS SUMMARY | ~2018-06-15 | XMS | Encounter Summary ---
Demographics + + + | Address | [address] | | | [place] [address] | + + + | Home Phone | | + + + | Preferred Language | Unknown | + + + | Marital Status | | + + + | Muslim Affiliation | 1041 | + + + [...] Team Providers + +------+ + | Care Braid Maker Name | Role | Phone | [...] | | | | | [place] | [place] [address] | [address] | | | | | Lumbar | Phone: | Phone: | | | | | radiculopath | [phone] | [phone] | | | | | y | Fax: | Fax: | | | | | Procedures | [phone] | [phone] | | | | | HIM 04/17/18 [...] fracture of fifth | | | | [place], | [address] [place] | lumbar vertebra, | | | | [place] [address] | [place] [address] | sequela (Primary | | | | [phone] | [phone] | Dx); Lumbar | | | | [...] +--------+ + + | AMB REFERRAL TO [facility]ICAL | Routin | Closed Compression | [...]
--- OUTSIDE RECORDS SUMMARY | ~2018-06-15 | XMS | Encounter Summary ---
Demographics + + + | Address | [address] | | | [place] [address] | + + + | Home Phone | | + + + | Preferred Language | Unknown | + + + | Marital Status | | + + + | Faith Affiliation | 1041 | + + + [...] Team Providers + +------+ + | Care Navy Seal Name | Role | Phone | + [...] + + | 05/09/ | Telephone | [facility] | Nick Martinez, | Results, Imaging | | 2018 | | PHYSIATRY [address] | PA-C [address] | | | | | [place], | [address] [place] | | | | | [place] [address] | [place] [address] | | | | | [phone] | [phone] | | | | | | | [...]
--- OUTSIDE RECORDS SUMMARY | ~2018-06-15 | XMS | Encounter Summary ---
Demographics + + + | Address | [address] | | | [place] [address] | + + + | Home Phone | | + + + | Preferred Language | Unknown | + + + | Marital Status | | + + + | Anglican Affiliation | 1041 | + + + [...] Providers + +------+ + | Care Branch Maker Name | Role | Phone | [...] [place]elyn [place] | | | | | [phone] | [place] [address] | | +--------+ + + + + [...]
--- OUTSIDE RECORDS SUMMARY | ~2018-06-15 | XMS | Encounter Summary ---
Demographics + + + | Address | [address] | | | [place] [address] | + + + | Home Phone | | + + + | Preferred Language | Unknown | + + + | Marital Status | | + + + | Nondenominational Affiliation | 1013 | + + + | Race | Unknown | + + + | Ethnic Group | Unknown | + + + Author + + + | Author | [facility] | + + + | Organization | [facility] [employer] | + + + | Address [...] Team Providers + +------+ + | Care Dyehouse Worker Name | Role | Phone | [...] + + | 06/13/ | Hospital | [facility] | Alfredo Casillas DO | Closed compression | | 2018 | Encounter | [facility] | [address] | fracture of fifth | | | | Clinical Decision | [place] [address] | lumbar vertebra, | | | | [address] | [phone] | initial encounter | | | | [place] [address] | | ([facility]) | | | | [phone] | | | +--------+ + + + [...] directed. Remove the small bandages on your gahuxess00 to 48hours after the surgery. Don t shower or soak in a bathtub for1 to 2days after the surgery. Use an ice packor bag of frozen peas or something similar wrapped in a thin towel to reduce the swelling and pain around incision sites. Put the ice pack on the area for20 minutes,then remove it [id number]. Repeat as needed. Wear your brace, if you were told to do so by your doctor. And to help stay flexible, be nd as much as the brace allows you to. For the first1 to 2days after the surgery, keep your head raised up when you are lyi ng down. Take short walks. Start by walking [id number] at a time. Then gradually build up yo ur time and distance. Don t drive pir4hswi after surgery. And never drive while taking [...] healthcare provider Shaking chills Date Last Reviewed: 09/15/201519991938-[address] [employer] [place] [address]. All righ ts reserved. This information is [...] 1 patch and | | 0 | 06/02/ | | | (DURAGESIC) 25 | replace [...] | 2017 | Visit | | [address] [facility] | | | | | | [place] [address] | | | | | | [phone] | | | | | | | [...] At | + + + | KORI MENESESHROP XR C-ARM FLUORO UP TO 1 HOUR HISTORY: | [facility] | | 72 years. Female. Kyphoplasty. TECHNIQUE: [...] + + | Performing | Address | City[facility] | Phone Number | | Organization | | | | + + + + + | [facility] | [address] | [place] [address] | | + + + + + POCT glucose (06/13/2018 6:47 AM) + + + + + | Component | Value | Ref Range | Performed At | + + + + + | GLUCOSE,POC SCREEN | 70Comment: Testing | 65 - 99 mg/dL | [facility] | | | performed at [facility];[address] | | | | | [address];[place] | | | | | [address] | | | + + + + + + + + + + | Performing | Address | City/State/Zipcode | Phone Number | | Organization | | | | + + + + + | [facility] | [address] | [place] [address] | | + + + + + [...] | PDT | | | | | Tue06/13/18 at 0833, For 2 doses, | | [...]
--- OUTSIDE RECORDS SUMMARY | ~2018-06-15 | XMS | Encounter Summary ---
Demographics + + + | Address | [address] | | | [place] [address] | + + + | Home Phone | | + + + | Preferred Language | Unknown | + + + | Marital Status | | + + + | Religion Affiliation | 1013 | + + + | Race | Unknown | + + + | Ethnic Group | Unknown | + + + Author + + + | Author | [facility] | + + + | Organization | [facility] [employer] | + + + | Address [...] Team Providers + +------+ + | Care Volunteer Services Assistant Name | Role | Phone | + +------+ + | Wendi Aiken PA-C | PCP | | + +------+ + Encounter Details +--------+ + + + + | Date | Type | Department | Care Team | Description | +--------+ + + + + | 05/26/ | Procedure | [facility] | | | | 2018 | Pass | [facility] | | | | | | RADIOLOGY [address] | | | | | | [address] | | | | | | [place] [address] | | | | | | [phone] | | | +--------+ + + + [...] | 2017 | Visit | | [address] [facility] [facility] | | | | | | [place] [address] | | | | | | [phone] | | | | | | | | +--------+---------+ + + + as of this encounter Visit Diagnoses Not on filein this encounter"
--- OUTSIDE RECORDS SUMMARY | ~2018-06-15 | XMS | Encounter Summary ---
Demographics + + + | Address | [address] | | | [place] [address] | + + + | Home Phone | | + + + | Preferred Language | Unknown | + + + | Marital Status | | + + + | Protestant Affiliation | 1041 | + + + [...] Team Providers + +------+ + | Care Bottom Finisher Name | Role | Phone | + +------+ + | Wendi Aiken | PCP | | + +------+ + Encounter Details +--------+ + + + + | Date | Type | Department | Care Team | Description | +--------+ + + + + | 04/06/ | Ancillary | [facility] | Provider, | | | 2018 | Orders | MED CTR EXTER[facility] | MD [address] | | | | | IMAGING | [place] | | | | | [phone] | [place] [address] | | +--------+ + + + + [...] encounter Results MRI Lumbar Spine wo Contrast (04/05/201805) + + + | Narrative | Performed [...]
--- OUTSIDE RECORDS SUMMARY | ~2018-06-15 | XMS | Encounter Summary ---
Demographics + + + | Address | [address] | | | [place] [address] | + + + | Home Phone | | + + + | Preferred Language | Unknown | + + + | Marital Status | | + + + | Jain Affiliation | 1041 | + + + [...] Team Providers + +------+ + | Care Training And Quality Manager Name | Role | Phone | + +------+ + | Wendi Aiken | PCP | | + +------+ + Encounter Details +--------+ + + + + | Date | Type | Department | Care Team | Description | +--------+ + + + + | 04/07/ | Ancillary | [facility] | Provider, | | | 2018 | Orders | MED CTR EXTERNAL | MD [address] | | | | | IMAGING | [address] | | | | | [phone] | [place] [address] | | +--------+ + + + + [...] on fileas of this encounter Results MRI Brain wo Contrast (02/25/2018 0850) + + + | Narrative | Performed [...] | | + +---------+ + + CT Angiogram Neck w Contrast (02/24/2018 1620) + + + | Narrative | Performed [...] | | + +---------+ + + CT Angiogram Head w Contrast (02/24/2018 1615) + + + | Narrative | Performed [...] +---------+ + + CT Head wo Contrast (02/24/2018 1540) + + + | Narrative | Performed [...]
--- OUTSIDE RECORDS SUMMARY | ~2018-06-15 | XMS | Encounter Summary ---
Demographics + + + | Address | [address] | | | [place] [address] | + + + | Home Phone | | + + + | Preferred Language | Unknown | + + + | Marital Status | | + + + | Nondenominational Affiliation | 1041 | + + + [...] Team Providers + +------+ + | Care Alternative Energy Engineer Name | Role | Phone | [...] [address] | | | | | [phone] | [place] [address] | | +--------+ + + + + [...]
--- OUTSIDE RECORDS SUMMARY | ~2018-06-15 | XMS | Encounter Summary ---
Demographics + + + | Address | [address] | | | [place] [address] | + + + | Home Phone | | + + + | Preferred Language | Unknown | + + + | Marital Status | | + + + | Methodist Affiliation | 1013 | + + + | Race | Unknown | + + + | Ethnic Group | Unknown | + + + Author + + + | Author | [facility] | + + + | Organization | [facility] [employer] | + + + | Address [...] Team Providers + +------+ + | Care Dust Puller Name | Role | Phone | + +------+ + | Wendi Aiken PA-C | PCP | | + +------+ + Encounter Details +--------+ + + + + | Date | Type | Department | Care Team | Description | +--------+ + + + + | 06/13/ | Orders Only | [facility] | Jennifer Hicks CMA | | | 2017 | | [facility] | | | | | | MEDICINE [facility] | | | | | | [address] [facility] | | | | | | [place], [place] | | | | | | [address] | | | | | | [phone] | | | +--------+ + + + [...] | | | | | [place] [address] | | | | | | [phone] | | | | | | | | +--------+---------+ + + + as of this encounter Visit Diagnoses Not on filein this encounter"
--- OUTSIDE RECORDS SUMMARY | ~2018-06-15 | XMS | Encounter Summary ---
Demographics + + + | Address | [address] | | | [place] [address] | + + + | Home Phone | | + + + | Preferred Language | Unknown | + + + | Marital Status | | + + + | Confucianism Affiliation | 1013 | + + + | Race | Unknown | + + + | Ethnic Group | Unknown | + + + Author + + + | Author | [facility] [facility] | + + + | Organization | [facility] [email or web address] [facility] | + + + | Address [...] Providers + +------+ + | Care Vp Lab Name | Role | Phone | + [...] + + | 06/13/ | Hospital | [facility] | Alfredo Casillas DO | Closed compression | | 2018 | Encounter | [facility] | [address] | fracture of fifth | | | | Clinical Decision | [place] [address] | lumbar vertebra, | | | | [address] | [phone] | initial encounter | | | | [place] [address] | | ([facility]) | | | | [phone] | | | +--------+ + + + [...] directed. Remove the small bandages on your [id number] to 48hours after the surgery. Don t shower or soak in a bathtub for1 to 2days after the surgery. Use an ice packor bag of frozen peas or something similar wrapped in a thin towel to reduce the swelling and pain around incision sites. Put the ice pack on the area for20 minutes,then remove it [id number]. Repeat as needed. Wear your brace, if you were told to do so by your doctor. And to help stay flexible, be nd as much as the brace allows you to. For the first1 to 2days after the surgery, keep your head raised up when you are lyi ng down. Take short walks. Start by walking [id number] at a time. Then gradually build up yo ur time and distance. Don t drive [id number] after surgery. And never drive while taking [...] healthcare provider Shaking chills Date Last Reviewed: 09/15/201519995866-6914 [employer] [place] [address]. All righ ts reserved. This information is [...] | 2017 | Visit | | [address] [facility] | | | | | | [place] [address] | | | | | | [phone] | | | | | | | [...] + + | Performing | Address | City/State/Rustcode | Phone Number | | Organization | | | | + + + + + | [facility] | [address] | [place] [address] | | + + + + + POCT glucose (06/13/2018 6:47 AM) + + + + + | Component | Value | Ref Range | Performed At | + + + + + | GLUCOSE,POC SCREEN | 70Comment: Testing | 65 - 99 mg/dL | [facility] | | | performed at [facility];[address] | | | | | [address];[place] | | | | | [address] | | | + + + + + + + + + + | Performing | Address | City/State/Zipcode | Phone Number | | Organization | | | | + + + + + | [facility] | [address] | [place] [address] | | + + + + + [...]
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
--- OUTSIDE RECORDS SUMMARY | ~2018-06-15 | XMS | Encounter Summary ---
Demographics + + + | Address | [address] | | | [place] [address] | + + + | Home Phone | | + + + | Preferred Language | Unknown | + + + | Marital Status | | + + + | Latter Day Affiliation | 1041 | + + + [...] Team Providers + +------+ + | Care Practical Nurse Clinical Coordinator Name | Role | Phone | [...] + + | 05/09/ | Telephone | [facility] | Nick Martinez, | Results, Imaging | | 2018 | | PHYSIATRY [address] | PA-C [address] | | | | | [place], | [address] [place] | | | | | [place] [address] | [place] [address] | | | | | [phone] | [phone] | | | | | | | [...]
--- OUTSIDE RECORDS SUMMARY | ~2018-06-15 | XMS | Encounter Summary ---
Demographics + + + | Address | [address] | | | [place] [address] | + + + | Home Phone | | + + + | Preferred Language | Unknown | + + + | Marital Status | | + + + | Voodoo Affiliation | 1013 | + + + | Race | Unknown | + + + | Ethnic Group | Unknown | + + + Author + + + | Author | [facility] | + + + | Organization | [facility] [employer] | + + + | Address [...] Team Providers + +------+ + | Care Treating Plant Supervisor Name | Role | Phone | + +------+ + | Oxana Nye NP | PCP | | + +------+ + Encounter Details +--------+ + + + + | Date | Type | Department | Care Team | Description | +--------+ + + + + | 05/31/ | Documentati | [facility] | Maykel Hutchins MD | | | 2018 | on Only | [facility] | [address] | | | | | [address] | [place] [address] | | | | | [place], [place] | [phone] | | | | | [address] | | | | | | [phone] | | | +--------+ + + + [...] + + + as of this encounter Progress Notes Mccormick, Claudette R - 05/31/2018 12:59 PM PDTReferral Recordsin this encounter Plan of Treatment +--------+---------+ + + + | Date | Type | Specialty | Care Team | Description | +--------+---------+ + + + | 06/21/ | Office | Dolorology | Alfredo Casillas DO | | | 2017 | Visit | | [address] | | | | | | [place] [address] | | | | | | [phone] | | | | | | | | +--------+---------+ + + + as of this encounter Visit Diagnoses Not on filein this encounter"
--- OUTSIDE RECORDS SUMMARY | ~2018-06-15 | XMS | Encounter Summary ---
Demographics + + + | Address | [address] | | | [place] [address] | + + + | Home Phone | | + + + | Preferred Language | Unknown | + + + | Marital Status | | + + + | Restorationism Affiliation | 1041 | + + + [...] Team Providers + +------+ + | Care Horser Up Name | Role | Phone | + +------+ + | Wendi Aiken | PCP | | + +------+ + Encounter Details +--------+ + + + + | Date | Type | Department | Care Team | Description | +--------+ + + + + | 04/06/ | Procedure | [facility] | | | | 2018 | Pass | [facility] CTR [facility] | | | | | | IMAGING | | | | | | [phone] | | | +--------+ + + + [...]
--- OUTSIDE RECORDS SUMMARY | ~2018-06-15 | XMS | Encounter Summary ---
Demographics + + + | Address | [address] | | | [place] [address] | + + + | Home Phone | | + + + | Preferred Language | Unknown | + + + | Marital Status | | + + + | Methodist Affiliation | 1013 | + + + | Race | Unknown | + + + | Ethnic Group | Unknown | + + + Author + + + | Author | [facility] [email or web address] | + + + | Organization | [facility] [employer] | + + + | Address [...] Team Providers + +------+ + | Care Special Duty Nurse Name | Role | Phone | [...] + + | 06/13/ | Anesthesia | [facility] | Juventino Richmond, | | | 2018 | Event | [facility] | STENOTYPIST [address] | | | | | Operating Room [address] | [place] [address] | | | | | [address] | [phone] | | | | | [place] [address] | | | | | | [phone] | | | +--------+ + + + [...] /1 | 7 | | discussed in [facility]. Premed. To OR. | | 4/ | [...] + + + | Wound | 06/13/18; 0751; Incision; Back; | 06/13/18 0751 by | | | | Haydee | Flakita Arteaga | | | | | LUISA Méndez | | +--------+ + + + | Periph | Placement Date: 06/13/18; | 06/13/18 0656 by | 06/13/18 1409 by | | slime | Placement Time: 655; Removal | Tomas Wilkins RN | Cristiane Araujo RN | | IV | Date: 06/13/18; Removal Time: | | | | | 1409; Size (Gauge): 20 G; | | | [...] | Visit | | [address] [facility] | | | | | | [place] [address] | | | | | | [phone] | | | | | | | [...] | | | | | 30 Minutes, Doubling Machine Operator To Dee Randall | | PDT | [...] | | | | | Continuous, Starting 06/13/18 | | PDT | | | | | at 0700, For 365 days, Pre-op | | | | | | + +---------+ +---+---+---+ +---+---+ | | | +---+---+ + +-------+ +-------+---+---+ | lidocaine 2 % (MDV) 2 % | Given | | 40 mg | | | | injection Intravenous, PRN, | | 8 07:33 | | | | | Starting Tu06/13/18 at 0733, | | PDT | | [...]
--- OUTSIDE RECORDS SUMMARY | ~2018-06-15 | XMS | Encounter Summary ---
Demographics + + + | Address | [address] | | | [place] [address] | + + + | Home Phone | | + + + | Preferred Language | Unknown | + + + | Marital Status | | + + + | Christian Affiliation | 1041 | + + + [...] Team Providers + +------+ + | Care Science Technician Name | Role | Phone | [...] IMAGING | | | | | | [phone] | | | +--------+ + + + [...]
--- OUTSIDE RECORDS SUMMARY | ~2018-06-15 | XMS | Encounter Summary ---
Demographics + + + | Address | [address] | | | [place] [address] | + + + | Home Phone [...] Team Providers + +------+ + | Care Weather Strip Mechanic Name | Role | Phone | [...] [address] | | | | | [phone] | [place] [address] | | +--------+ + + + + [...]
--- OUTSIDE RECORDS SUMMARY | ~2018-06-15 | XMS | Encounter Summary ---
Demographics + + + | Address | [address] | | | [place] [address] | + + + | Home Phone | | + + + | Preferred Language | Unknown | + + + | Marital Status | | + + + | Adventist Affiliation | 1013 | + + + | Race | Unknown | + + + | Ethnic Group | Unknown | + + + Author + + + | Author | [facility] [employer] | + + + | Organization | [facility] [employer] [facility] | + + + | Address [...] Team Providers + +------+ + | Care Haul Cane Brakeman Name | Role | Phone | + [...] + + | 06/07/ | Telephone | [facility] | Jennifer Hicks, POLYMERIZATION KETTLE OPERATOR | Other (questions ) | | 2017 | | [facility] | | | | | | MEDICINE [facility] | | | | | | [address] | | | | | | [place] | | | | | | [address] | | | | | | [phone] | | | +--------+ + + + [...] [address] | | | | | | [place] [address] | | | | | | [phone] | | | | | | | | +--------+---------+ + + + as of this encounter Visit Diagnoses Not on filein this encounter"
--- OUTSIDE RECORDS SUMMARY | ~2018-06-15 | XMS | Clinical Summary ---
Demographics + + + | Address | [address] | | | [place] [address] | + + + | Home Phone | | + + + | Preferred Language | Unknown | + + + | Marital Status | | + + + | Baptism Affiliation | 1041 | + + + [...] | + + + + + | Gonzlaez Menchaca | ECON | NA | | | | | [place] | | + + + + + Care Team Providers + +------+ + | Care Drafting Clerk Name | Role | Phone | [...] every 6 hours | | | | | e [...] | | Activ | | (ROBAXIN) 750 mg | 4 times daily. | | | | | e | | tablet | | | | | | | + + +-------+---------+------+------+-------+ | mirabegron | Take 25 mg by mouth | | | | | Activ | | (MYRBETRIQ) 25 mg ER | Daily. | | | | | e | | tablet | | | | | | | + + +-------+---------+------+------+-------+ | | Apply 2 g topically | | | | | Activ | | LIDOCAINE-PRILOCAINE | 3 times daily. | | | | | e | | EX | | | | | | | + + +-------+---------+------+------+-------+ | acetaminophen | Take 500 mg by mouth | | | | | Activ | | (TYLENOL) 500 mg | every 6 hours as | | | | | e | | tablet | needed for Pain. | | | | | | + + +-------+---------+------+------+-------+ | lidocaine | Apply up to 3 | 30 | 0 | 06/0 | | Activ | | (LIDODERM) 5% patch | patches TOPICALLY at | patch | | 4/20 | | e | [...] + +---+ + + | Overview: [facility] [id number] Decision | + + + +---+ | [...] Ancillary | | Provider, | | | 2017 | Orders | | MD Hemalatha | [...] Closed compression | | 2017 | | | PA-C | fracture of fifth | | | | | | lumbar vertebra, | | | | | | sequela (Primary | | | | | | Dx); Lumbar | | | | | | radiculopathy | +--------+ + + + + | 04/10/ | Telephone | | Nick Martinez, | Medication Prior | 2017 | | | PA-C | Authorization | | | | | | (Lidocaine Patch ) | +--------+ + + + + | 04/10/ | Telephone | | Nick Martinez, | Medication Follow-up | | 2017 | | | PA-C | | +--------+ + + + + | 04/07/ | Ancillary | | Provider, | | | 2018 | Orders | | MD Hemalatha | | +--------+ + + + + | 04/06/ | Hospital | | Nick Martinez, | Lumbar radiculopathy | | 2017 | Encounter | | [facility] [place] Worker, | | | | | | [facility] | | +--------+ + + + + | 04/06/ | Telephone | | Nick Martinez, | Results, Imaging | | 2017 | | | PEE-Nicole | (MRI/Cancelled | | | | | | Injection) | +--------+ + + + + | 04/06/ | Telephone | | Shay Dietz | Injections | | 2018 | | | MD Lonny | | +--------+ + + + + | 04/06/ | Ancillary | | Provider, | | | 2017 | Orders | | MD Hemalatha | | +--------+ + + + + | 04/06/ | Procedure | | | | | 2018 | Pass | | | | +--------+ + + + + | 04/05/ | Imaging | | Provider, | | | 2017 | Exam | | MD Hemalatha | | +--------+ + + + 04/03/ | Office | | Nick Martinez, | Lumbar radiculopathy | | 2017 | Visit | | PA-C | (Primary Dx); BACK | | | | | | PAIN, LUMBAR; | | | | | | SACROILIITIS; DDD | | | | | | [...] | | | | scoliosis type | +--------+ + + + + | 04/03/ | Telephone | | Nick Martinez, | Medication Question | | 2018 | | | PA-C | | +--------+ [...] +--------+ + | No Known Problems | Phong | Destiny | | + + +--------+ + + +--------+ + + | Relation | Name | Status | Comments | + +--------+ + + | Brother | | | [place] | | | | (Age | | [...] + + + | Blood Pressure | 133/68 | 04/06/2018 1311 PDT | + + + + | Pulse | 84 | 04/06/2018 1311 PDT | + + + + | Temperature | 36.8 C (98.2 F) | 04/25/2017 1913 PDT | + + + + | Respiratory Rate | 16 | 04/25/20172019 PDT | + + + + | Oxygen Saturation | 97% | 04/25/20172019 PDT | + + + + | Inhaled Oxygen | - | - | | Concentration | | | + + + + | Weight | 53.5 kg (118 lb) | 04/03/2018 1117 PDT | + + + + | Height | 157.5 cm (5' 2") | 04/03/20181116 PDT | + + + + | Body Mass Index | 21.58 | 04/03/20181116 PDT | + + + + Plan [...] + + from Last 3 Months Results MRI Lumbar Spine wo Contrast (05/09/2018 1125)Only the most recent of 2 results within [...] + + IMAGING REPORT - EXTERNAL SCAN (05/09/2018)Only the most recent of 2 results within the is included. + + + | Narrative [...] +---------+ | INDIVIDUAL ASSURANCE | INDIVI | [id number] | Indemn | | | | COMPANY | DUAL | | ity | | | | | ASSURA | | | | | | | NCE [place] | | | | | | | MDCR | | | | | | | SUPPL | | | | | + +--------+ +--------+ +---------+ | MEDICARE | MEDICA | [id number] | Medica | +1- | | | | RE | | re | [phone] | | | | PART A | | | | | | | AND B | | | | | + +--------+ +--------+ +---------+ | MEDICARE | MEDICA | [id number] | Medica | +- | | | | RE | | re | [phone] | | | | PART A | | | | | | | AND B | | | | | + +--------+ +--------+ +---------+ | INDIVIDUAL ASSURANCE | INDIVI | [id number] | Indemn | | | | COMPANY [...] [address] | | [place] | al/Benji | | 1945 | [phone] | [address] [place] | | | jose | | | [phone] | + +--------+ +--------+ + + | YU RUBIO | Person | Self [birth year] | Home: | [address] | | [place] | antonio/[place]ji | | 1945 | [phone] | [address] [place] | | | j[place] | | | [phone] | [phone] | + +--------+ +--------+ + +
--- OUTSIDE RECORDS SUMMARY | ~2018-06-15 | XMS | Encounter Summary ---
Demographics + + + | Address | [address] | | | [place] [address] | + + + | Home Phone | | + + + | Preferred Language | Unknown | + + + | Marital Status | | + + + | Amish Affiliation | 1013 | + + + | Race | Unknown | + + + | Ethnic Group | Unknown | + + + Author + + + | Author | [facility] [employer] | + + + | Organization | [facility] [employer] | + + + | Address [...] Team Providers + +------+ + | Care Equity Research Analyst Name | Role | Phone | [...] + + | 05/26/ | Hospital | [facility] PHYSICIAN | See, Medical | Pain | | 2018 | Encounter | [facility] | Record | | | | | RADIOLOGY [address] | | | | | [address] | | | | | | [place] [address] | | | | | | [phone] | | | +--------+ + + + [...] | 2018 | Visit | | [address] [facility] | | | | | | [place] [address] | | | | | | [phone] | | | | | | | [...] | + + + + + | [facility] | [address] | [place] [address] | | + + + + + in this encounter Visit Diagnoses + + | Diagnosis | + + | Pain | + + | Generalized pain | + +"
--- OUTSIDE RECORDS SUMMARY | ~2018-06-15 | XMS | Encounter Summary ---
Demographics + + + | Address | [address] | | | [place] [address] | + + + | Home Phone | | + + + | Preferred Language | Unknown | + + + | Marital Status | | + + + | Baptist Affiliation | 1013 | + + + | Race | Unknown | + + + | Ethnic Group | Unknown | + + + Author + + + | Author | [facility] | + + + | Organization | [facility] [employer] [facility] | + + + | Address [...] + +------+ + | Care Video Game Producer Name | Role | Phone | + +------+ + | Wendi Aiken PA-C | PCP | | + +------+ + Encounter Details +--------+ + + + + | Date | Type | Department | Care Team | Description | +--------+ + + + + | 06/13/ | Procedure | [facility] | | | | 2018 | [facility] | | | | | | Operating Room 88 | | | | | | [facility] | | | | | | [place] [address] | | | | | | [phone] | | | +--------+ + + + [...] | 2018 | Visit | | [address] [facility] | | | | | | [place] [address] | | | | | | [phone] | | | | | | | | +--------+---------+ + + + as of this encounter Visit Diagnoses Not on filein this encounter"
--- OUTSIDE RECORDS SUMMARY | ~2018-06-15 | XMS | Encounter Summary ---
Demographics + + + | Address | [address] | | | [place] [address] | + + + | Home Phone | | + + + | Preferred Language | Unknown | + + + | Marital Status | | + + + | Yazidi Affiliation | 1013 | + + + | Race | Unknown | + + + | Ethnic Group | Unknown | + + + Author + + + | Author | [facility] [employer] | + + + | Organization | [facility] [employer] [facility] | + + + | Address [...] Team Providers + +------+ + | Care Caramel Cutter Hand Name | Role | Phone | + +------+ + | Wendi Aiken PA-C | PCP | | + +------+ + Encounter Details +--------+ + + + + | Date | Type | Department | Care Team | Description | +--------+ + + + + | 06/12/ | Orders Only | [facility] PH[facility] | Alfredo Casillas DO | | | 2017 | | [facility] | [address] [facility] | | | | | PAIN [address] | [place] [address] | | | | | Blvd [place], [place] | [phone] | | | | | [address] | [...] | | | | | [place] [address] | | | | | | [phone] | | | | | | | | +--------+---------+ + + + as of this encounter Visit Diagnoses Not on filein this encounter"
--- OUTSIDE RECORDS SUMMARY | ~2018-06-15 | XMS | Encounter Summary ---
Demographics + + + | Address | [address] | | | [place] [address] | + + + | Home Phone | | + + + | Preferred Language | Unknown | + + + | Marital Status | | + + + | Latter Day Affiliation | 1013 | + + + | Race | Unknown | + + + | Ethnic Group | Unknown | + + + Author + + + | Author | [facility] [employer] | + + + | Organization | [facility] [employer] | + + + | Address [...] Providers + +------+ + | Care Egg Pasteurizer Name | Role | Phone | + [...] + + | 06/01/ | Telephone | [facility] | Maykel Hutchins MD | Other (Patient is | | 2018 | | [facility] [place] | [address] | returning a call to | | | | [address] | [place] [address] | Vicki about | | | | [place], [place] | [phone] | referral. She needs | | | | [address] | | to schedule ) | | | | [phone] | | | +--------+ + + + [...] ST | | | | | | [place] [address] | | | | | | [phone] | | | | | | | | +--------+---------+ + + + as of this encounter Visit Diagnoses Not on filein this encounter"
--- OUTSIDE RECORDS SUMMARY | ~2018-06-15 | XMS | Encounter Summary ---
Demographics + + + | Address | [address] | | | [place] [address] | + + + | Home Phone | | + + + | Preferred Language | Unknown | + + + | Marital Status | | + + + | Mu-Ism Affiliation | 1013 | + + + | Race | Unknown | + + + | Ethnic Group | Unknown | + + + Author + + + | Author | [facility] [employer] | + + + | Organization | [facility] [employer] | + + + | Address [...] Team Providers + +------+ + | Care Obstetrics Teacher Name | Role | Phone | + +------+ + | Wendi Aiken PA-C | PCP | | + +------+ + Encounter Details +--------+ + + + + | Date | Type | Department | Care Team | Description | +--------+ + + + + | 06/07/ | Hospital | [facility] | Alfredo Casillas DO | | | 2018 | Encounter | [facility] | [address] [facility] | | | | | Preadmission | [place] [address] | | | | | Services [facility] [address] | [phone] | | | | | Blvd [place], [place] | | | | | | [...] the 06/07/18 encounter (Hospital Encounter) wit h [facility] ROOM 5 Medication Sig INSTRUCTIONS albuterol (ACCUNEB) [...] about all medicines you take. This includes vypm-csl-hdfpzak medicines, herbs, vitamins, and other supplements. Ask your healthcare provider if there are medicines you must stop taking before the proc edure. Do not eat or drink anything for at kdrnw0xinbd before the procedure. Arrange for an adult [...] or unrelieved back pain Date Last Reviewed: 04/30/201619998804-1986 [employer]. [address] [place] [address], [place] [address]. All righ ts reserved. This information is [...] spray in 1 | | 0 | /09/19 | | | LIQD | NOSTRIL if [...] | 2018 | Visit | | [address] [facility] | | | | | | [place] [address] | | | | | | [phone] | | | | | | | [...] | + +--------+ + + + | EK STANDARD 12 LEAD | Routin | 06/07/2018 [...] the | | | | | MDRD [facility] traceable | | | | | equation.Testing | | | | | performed at [facility], [address] | | | | | [facility], | | | | | [place] [address] | | | + + + + + + + | Specimen | + + | Blood | + + + + + + + | Performing | Address | City/State/Zipcode | Phone Number | | Organization | | | | + + + + + | [facility] | [address] | [place] [address] | [phone] | | LABORATORY | Blvd. | | [...] | [facility] | | | performed at [facility], [address] | | LABORATORY | | | [address], | | | | | [place] [address] | | | + + + + + + + | Specimen | + + | Blood | + + + + + + + | Performing | Address | City/State/Zipcode | Phone Number | | Organization | | | | + + + + + | [facility] | [address] [facility] | [place] [address] | [phone] | | LABORATORY | Blvd. | | [...] + + + + | Calculated P [place] | 80 | degrees | [facility] | + + + + + | Calculated R [place] | -9 | degrees | [facility] | + + + + + | Calculated T [place] | 69 | degrees | [facility] [...] | + + + + + | [facility] | [address] | [place] [address] | | + + + + + in this encounter Visit Diagnoses Not on filein this encounter
--- OUTSIDE RECORDS SUMMARY | ~2018-06-15 | XMS | Encounter Summary ---
Demographics + + + | Address | [address] | | | [place] [address] | + + + | Home Phone | | + + + | Preferred Language | Unknown | + + + | Marital Status | | + + + | Jewish Affiliation | 1013 | + + + | Race | Unknown | + + + | Ethnic Group | Unknown | + + + Author + + + | Author | [facility] [employer] | + + + | Organization | [facility] [employer] | + + + | Address [...] Team Providers + +------+ + | Care Appraiser Timber Name | Role | Phone | + [...] + + | 05/26/ | Ancillary | [facility] | See, Medical | Pain | | 2018 | [facility] | [facility] | Record | | | | | [address] | | | | | | [place] [address] | | | | | | [phone] | | | +--------+ + + + [...] | Visit | | [address] [facility] | | | | | | [place] [address] | | | | | | [phone] | | | | | | | [...] [facility] | [address] | [facility] [address] | | + + + + + [...] [facility] | [address] | [place] [address] | | + + + + + in this encounter Visit Diagnoses + + | Diagnosis | + + | Pain | + + | Generalized pain | + +"
--- OUTSIDE RECORDS SUMMARY | ~2018-06-15 | XMS | Clinical Summary ---
Demographics + + + | Address | [address] | | | [place] [address] | + + + | Home Phone [...] Providers + +------+ + | Care Office Technology Instructor Name | Role | Phone | + +------+ + | Oxana Nye | PP | Unavailable | + +------+ + Source Comments RADHA is fully live on both [facility] and [facility] InPatient.[facility] Allergies + + + + + [...] | xxxxxxxxxx | Medica | +- | [address] | | | RE A & | | re | [address]31 | [place] [address] | | | B | | | | | + +--------+ +--------+ + + | [employer] | AARP | xxxxxxxxxx | Indemn | +- | [address] | | RETIRED PEOPLE | | | ity | [address]752 | [place] [address] | + +--------+ +--------+ + + + +--------+ +--------+ + + | Guarantor Name | Accoun | Relation to | Date | Phone | Billing Address | | | t Type | Patient | of | | | | | | | | | | + +--------+ +--------+ + + | YU HARMON | Person | Self | [birth year] | Home: | [address] | | [place] | al/Benji | | 1945 | [phone] | [address] [place] | | | jose | | | [phone] | [phone] | + +--------+ +--------+ + +
--- OUTSIDE RECORDS SUMMARY | ~2018-06-15 | XMS | Encounter Summary ---
Demographics + + + | Address | [address] | | | [place] [address] | + + + | Home Phone | | + + + | Preferred Language | Unknown | + + + | Marital Status | | + + + | Advent Affiliation | 1013 | + + + | Race | Unknown | + + + | Ethnic Group | Unknown | + + + Author + + + | Author | [facility] [employer] | + + + | Organization | [facility] [employer] | + + + | Address [...] Team Providers + +------+ + | Care Surveyor Geodetic Name | Role | Phone | + +------+ + | Wendi Aiken PA-C | PCP | | + +------+ + Encounter Details +--------+ + + + + | Date | Type | Department | Care Team | Description | +--------+ + + + + | 05/26/ | Procedure | [facility] | | | | 2018 | Pass | [facility] | | | | | | RADIOLOGY [address] | | | | | | [address] | | | | | | [place] [address] | | | | | | [phone] | | | +--------+ + + + [...] | 2017 | Visit | | [address] [facility] | | | | | | [place] [address] | | | | | | [phone] | | | | | | | | +--------+---------+ + + + as of this encounter Visit Diagnoses Not on filein this encounter"
--- OUTSIDE RECORDS SUMMARY | ~2018-06-15 | XMS | Encounter Summary ---
Demographics + + + | Address | [address] | | | [place] [address] | + + + | Home Phone | | + + + | Preferred Language | Unknown | + + + | Marital Status | | + + + | Yazidism Affiliation | 1013 | + + + | Race | Unknown | + + + | Ethnic Group | Unknown | + + + Author + + + | Author | [facility] [employer] | + + + | Organization | [facility] [employer] [facility] | + + + | Address [...] Team Providers + +------+ + | Care Facetor Name | Role | Phone | + [...] is | | 2018 | | [facility] | [address] | returning a call to | | | | [address] | [place] [address] | iVcki about | | | | [place], [place] | [phone] | referral. She needs | | | | [address] | | to schedule ) | | | | [phone] | | | +--------+ + + + [...] | | | | | [place] [address] | | | | | | [phone] | | | | | | | | +--------+---------+ + + + as of this encounter Visit Diagnoses Not on filein this encounter"
--- OUTSIDE RECORDS SUMMARY | ~2018-06-15 | XMS | Encounter Summary ---
Demographics + + + | Address | [address] | | | [place] [address] | + + + | Home Phone | | + + + | Preferred Language | Unknown | + + + | Marital Status | | + + + | Faith Affiliation | 1013 | + + + | Race | Unknown | + + + | Ethnic Group | Unknown | + + + Author + + + | Author | [facility] [employer] | + + + | Organization | [facility] [employer] | + + + | Address [...] Providers + +------+ + | Care Custom Shop Worker Name | Role | Phone | + +------+ + | Oxana Nye NP | PCP | | + +------+ + Encounter Details +--------+ + + + + | Date | Type | Department | Care Team | Description | +--------+ + + + + | 04/05/ | Documentati | [facility] | Modesto Medel | | | 2018 | on Only | [facility] | MD Mila [address] | | | | | [address] | [employer] | | | | | [place], [place] | [place] [address] | | | | | [address] | [phone] | | | | | [phone] | | | +--------+ + + + [...] [address] | | | | | | [place] [address] | | | | | | [phone] | | | | | | | | +--------+---------+ + + + as of this encounter Visit Diagnoses Not on filein this encounter"
--- OUTSIDE RECORDS SUMMARY | ~2018-06-15 | XMS | Encounter Summary ---
Demographics + + + | Address | [address] | | | [place] [address] | + + + | Home Phone [...] Providers + +------+ + | Care Silver Wrapper Name | Role | Phone | [...] [address] | | | | | [place], | [address] [facility], [place] | | | | | [place] [address] | [address] | | | | | [phone] | | | +--------+ + + + [...]
--- OUTSIDE RECORDS SUMMARY | ~2018-06-15 | XMS | Encounter Summary ---
Demographics + + + | Address | [address] | | | [place] [address] | + + + | Home Phone | | + + + | Preferred Language | Unknown | + + + | Marital Status | | + + + | Episcopalian Affiliation | 1041 | + + + [...] + + + + + | Gonzalez Menhcaca | ECON | NA | | | | | [place] | | + + + + + Care Team Providers + +------+ + | Care Auto Battery Builder Name | Role | Phone | [...] [address] | | | | | [phone] | [place] [address] | | +--------+ + + + + [...]
--- OUTSIDE RECORDS SUMMARY | ~2018-06-15 | XMS | Encounter Summary ---
Demographics + + + | Address | [address] | | | [place] [address] | + + + | Home Phone | | + + + | Preferred Language | Unknown | + + + | Marital Status | | + + + | Presybeterian Affiliation | 1041 | + + + [...] Team Providers + +------+ + | Care Form Coverer Name | Role | Phone | + [...] + + | 04/10/ | Telephone | [facility] | Nick Martinez, | Medication Prior | | 2017 | | PH[address]SIATRY [address] | PA-C [address] | Authorization | | | | [place], | [address] [place] [address] [place] | (Lidocaine Patch ) | | | | [place] [address] | [place] [address] | | | | | [phone] | [phone] | | | | | | | [...]
--- OUTSIDE RECORDS SUMMARY | ~2018-06-15 | XMS | Encounter Summary ---
Demographics + + + | Address | [address] | | | [place] [address] | + + + | Home Phone | | + + + | Preferred Language | Unknown | + + + | Marital Status | | + + + | Yarsanism Affiliation | 1013 | + + + | Race | Unknown | + + + | Ethnic Group | Unknown | + + + Author + + + | Author | [facility] [employer] | + + + | Organization | [facility] [employer] [facility] | + + + | Address [...] Team Providers + +------+ + | Care Taxi Dancer Name | Role | Phone | + [...] + | 05/26/ | Ancillary | [facility] | See, Medical | Pain | | 2018 | [facility] | [facility] [address] | Record | | | | | [address] | | | | | | [place] [address] | | | | | | [phone] | | | +--------+ + + + [...] 2018 | Visit | | [address] [facility] | | | | | | [place] [address] | | | | | | [phone] | | | | | | | [...] | [address] | [place] [address] | | + + + + + in this encounter Visit Diagnoses + + | Diagnosis | + + | Pain | + + | Generalized pain | + +"
--- OUTSIDE RECORDS SUMMARY | ~2018-06-15 | XMS | Encounter Summary ---
Demographics + + + | Address | [address] | | | [place] [address] | + + + | Home Phone | | + + + | Preferred Language | Unknown | + + + | Marital Status | | + + + | Jew Affiliation | 1041 | + + + [...] Providers + +------+ + | Care Pet Groomer Name | Role | Phone | + [...] IMAGING | | | | | | [phone] | | | +--------+ + + + [...]
--- OUTSIDE RECORDS SUMMARY | ~2018-06-15 | XMS | Encounter Summary ---
Demographics + + + | Address | [address] | | | [place] [address] | + + + | Home Phone | | + + + | Preferred Language | Unknown | + + + | Marital Status | | + + + | Episcopal Affiliation | 1013 | + + + | Race | Unknown | + + + | Ethnic Group | Unknown | + + + Author + + + | Author | [facility] | + + + | Organization | [facility] [employer] | + + + | Address [...] Team Providers + +------+ + | Care Press Tender Short Goods Name | Role | Phone | + +------+ + | Wendi Aiken PA-C | PCP | | + +------+ + Encounter Details +--------+ + + + + | Date | Type | Department | Care Team | Description | +--------+ + + + + | 06/07/ | Hospital | [facility] | Alfredo Casillas DO | | | 2018 | Encounter | [facility] | [address] [facility] | | | | | Preadmission | [place] [address] | | | | | Services [facility] [address] | [phone] | | | | | Blvd [place], [place] | | | | | | [...] the 06/07/18 encounter (Hospital Encounter) wit h [facility] ROOM 5 Medication Sig INSTRUCTIONS albuterol [...] about all medicines you take. This includes fqta-ogu-vwbjzvj medicines, herbs, vitamins, and other supplements. Ask your healthcare provider if there are medicines you must stop taking before the proc edure. Do not eat or drink anything for at ayrem2qqbqv before the procedure. Arrange for an adult [...] or unrelieved back pain Date Last Reviewed: 04/30/201619995488-1313 [employer] [address] [place] [address], [place] [address]. All righ ts reserved. This information is [...] | Visit | | [address] [facility] | | | | | | [place] [address] | | | | | | [phone] | | | | | | | [...] the | | | | | MDRD [facility] traceable | | | | | equation.Testing | | | | | performed at [facility], [address] | | | | | [facility], | | | | | [place] [address] | | | + + + + + + + | Specimen | + + | Blood | + + + + + + + | Performing | Address | City/State/Zipcode | Phone Number | | Organization | | | | + + + + + | [facility] | [address] | [place] [address] | [phone] | | LABORATORY | Blvd. | | [...] | [facility] | | | performed at [facility], [address] | | LABORATORY | | | [address], | | | | | [place] [address] | | | + + + + + + + | Specimen | + + | Blood | + + + + + + + | Performing | Address | City/State/Zipcode | Phone Number | | Organization | | | | + + + + + | [facility] | [address] | [place] [address] | [phone] | | LABORATORY | Blvd. | | [...] + + + + | Calculated P [place] | 80 | degrees | [facility] | + + + + + | Calculated R [place] | -9 | degrees | [facility] | + + + + + | Calculated T [place] | 69 | degrees | [facility] [...] | + + + + + | [facility] | [address] | [place] [address] | | + + + + + in this encounter Visit Diagnoses Not on filein this encounter
--- OUTSIDE RECORDS SUMMARY | ~2018-06-15 | XMS | Encounter Summary ---
Demographics + + + | Address | [address] | | | [place] [address] | + + + | Home Phone | | + + + | Preferred Language | Unknown | + + + | Marital Status | | + + + | Buddhism Affiliation | 1013 | + + + | Race | Unknown | + + + | Ethnic Group | Unknown | + + + Author + + + | Author | [facility] [employer] | + + + | Organization | [facility] [employer] | + + + | Address [...] Team Providers + +------+ + | Care Station Usher Name | Role | Phone | + [...] | | | [address] | [email or web address] | | | | | [place], [place] | [place] [address] | | | | | [address] | [phone] | | | | | [phone] | | | +--------+ + + + [...] [address] | | | | | | [place] [address] | | | | | | [phone] | | | | | | | | +--------+---------+ + + + as of this encounter Visit Diagnoses Not on filein this encounter"
--- OUTSIDE RECORDS SUMMARY | ~2018-06-15 | XMS | Encounter Summary ---
Demographics + + + | Address | [address] | | | [place] [address] | + + + | Home Phone | | + + + | Preferred Language | Unknown | + + + | Marital Status | | + + + | Sikhism Affiliation | 1041 | + + + [...] Providers + +------+ + | Care Manager Roofing Name | Role | Phone | + [...] + + | 04/10/ | Telephone | [facility] | Nick Martinez, | Medication Follow-up | | 2017 | | PH[address]SIATRY [address] | PA-C [address] | | | | | [place], | [address] [place] | | | | | [place] [address] | [place] [address] | | | | | [phone] | [phone] | | | | | | | [...]
--- OUTSIDE RECORDS SUMMARY | ~2018-06-15 | XMS | Encounter Summary ---
Demographics + + + | Address | [address] | | | [place] [address] | + + + | Home Phone | | + + + | Preferred Language | Unknown | + + + | Marital Status | | + + + | Mormonism Affiliation | 1013 | + + + | Race | Unknown | + + + | Ethnic Group | Unknown | + + + Author + + + | Author | [facility] | + + + | Organization | [facility] [employer] [facility] | + + + | Address [...] + +------+ + | Care Animal Ride Manager Name | Role | Phone | + +------+ + | Wendi Aiken PA-C | PCP | | + +------+ + Encounter Details +--------+ + + + + | Date | Type | Department | Care Team | Description | +--------+ + + + + | 05/26/ | Procedure | [facility] PHYSICIAN | | | | 2018 | Pass | [facility] | | | | | | RADIOLOGY [address] | | | | | | [address] | | | | | | [place] [address] | | | | | | [phone] | | | +--------+ + + + [...] | 2017 | Visit | | [address] [facility] | | | | | | [place] [address] | | | | | | [phone] | | | | | | | | +--------+---------+ + + + as of this encounter Visit Diagnoses Not on filein this encounter"
--- OUTSIDE RECORDS SUMMARY | ~2018-06-15 | XMS | Encounter Summary ---
Demographics + + + | Address | [address] | | | [place] [address] | + + + | Home Phone | | + + + | Preferred Language | Unknown | + + + | Marital Status | | + + + | Roman Catholic Affiliation | 1013 | + + + | Race | Unknown | + + + | Ethnic Group | Unknown | + + + Author + + + | Author | [facility] | + + + | Organization | [facility] [employer] [employer] [facility] | + + + | Address [...] Providers + +------+ + | Care Real Estate Executive Assistant Name | Role | Phone | + +------+ + | Wendi Aiken PA-C | PCP | | + +------+ + Encounter Details +--------+ + + + + | Date | Type | Department | Care Team | Description | +--------+ + + + + | 06/09/ | Telephone | [facility] | Jennifer Hicks CMA | | | 2017 | | [facility] | | | | | | MEDICINE RADHA | | | | | | [address] [facility] | | | | | | [place], [place] | | | | | | [address] | | | | | | [phone] | | | +--------+ + + + [...] | | | | | [place] [address] | | | | | | [phone] | | | | | | | | +--------+---------+ + + + as of this encounter Visit Diagnoses Not on filein this encounter"
--- OUTSIDE RECORDS SUMMARY | ~2018-06-15 | XMS | Encounter Summary ---
Demographics + + + | Address | [address] | | | [place] [address] | + + + | Home Phone | | + + + | Preferred Language | Unknown | + + + | Marital Status | | + + + | Oriental Orthodox Affiliation | 1013 | + + + | Race | Unknown | + + + | Ethnic Group | Unknown | + + + Author + + + | Author | [email or web address] | + + + | Organization | [facility] [employer] [facility] | + + + | Address [...] | | + + +---------+ + | Gonzaelz Menchaca | ECON | Unknown | | + + +---------+ + | Gwendolyn Cho | ECON | Unknown | | + + +---------+ + | Nathalia Weinstein | ECON | Unknown | | + + +---------+ + Care Team Providers + +------+ + | Care Stitcher Hand Name | Role | Phone | + +------+ + | Oxana Ney NP | PCP | | + +------+ [...] + + | 05/26/ | Hospital | [facility] | See, Medical | Pain | | 2018 | Encounter | [facility] | Record | | | | | RADIOLOGY [address] | | | [address] | | | | | | [place] [address] | | | | | | [phone] | | | +--------+ + + + [...] HOSPITAL | | | | | | [place] [address] | | | | | | [phone] | | | | | | | [...] | + + + + + | [facility] | [address] | [place] [address] | | + + + + + in this encounter Visit Diagnoses + + | Diagnosis | + + | Pain | + + | Generalized pain | + +"
--- OUTSIDE RECORDS SUMMARY | ~2018-06-15 | XMS | Encounter Summary ---
Demographics + + + | Address | [address] | | | [place] [address] | + + + | Home Phone | | + + + | Preferred Language | Unknown | + + + | Marital Status | | + + + | Taoist Affiliation | 1041 | + + + [...] Team Providers + +------+ + | Care Threading Machine Feeder Automatic Name | Role | Phone | [...] [address] | | | | | [place], | [facility] [place] | | | | | [place] [address] | [address] | | | | | [phone] | | | +--------+ + + + [...]
--- OUTSIDE RECORDS SUMMARY | ~2018-06-15 | XMS | Encounter Summary ---
Demographics + + + | Address | [address] | | | [place] [address] | + + + | Home Phone [...] Team Providers + +------+ + | Care Medicine Tech Name | Role | Phone | [...] | MRI Lumbar | [place], | [address] | | | | | Spine wo | [place] [address] | Phone: | | | | | Contrast | Phone: | [phone] | | | | | | [phone] | Fax: | | | | | | Fax: | [phone] | | | | | | [phone] | | +--------+--------+ + + + + Reason for Visit + + + | Reason | Comments | + + + | Follow-up | Discuss Injections | + + + Encounter Details +--------+---------+ + + + | Date | Type | Department | Care Team | Description | +--------+---------+ + + + | 04/03/ | Office | [facility] | Nick Martinez, | Lumbar radiculopathy | | 2018 | Visit | PHYSIATRY [address] | PA-C [address] | (Primary Dx); BACK | | | | [place], | [address] [place] | PAIN, LUMBAR; | | | | [place] [address] | [place] [address] | SACROILIITIS; DDD | | | | [phone] | [phone] | (degenerative disc | | | | [...] the procedure you must provide a cdl truck driver to take you home. For [...] press against a nerve. Date Last Reviewed: 08/03/201519992690-7970 The sharing.[employer]. [address] [place] [address], [place] [address]. All righ ts reserved. This information is [...] and working more hours due to the [employer] Round up. Her pain ba ck is [...] has no apparent deficits with short or oil heaterman memory. She has appropriate fund of knowledge [...]
--- OUTSIDE RECORDS SUMMARY | ~2018-06-15 | XMS | Encounter Summary ---
Demographics + + + | Address | [address] | | | [place] [address] | + + + | Home Phone | | + + + | Preferred Language | Unknown | + + + | Marital Status | | + + + | Protestant Affiliation | 1013 | + + + | Race | Unknown | + + + | Ethnic Group | Unknown | + + + Author + + + | Author | [facility] | + + + | Organization | [facility] | + + + | Address [...] Team Providers + +------+ + | Care Computer Trainer Name | Role | Phone | + +------+ + | Wendi Aiken PA-C | PCP | | + +------+ + Encounter Details +--------+ + + + + | Date | Type | Department | Care Team | Description | +--------+ + + + + | 06/09/ | Telephone | [facility] | Jennifer Hicks CMA | | | 2017 | | [facility] | | | | | | MEDICINE RADHA | | | | | | [address] [facility] [facility] | | | | | | [place], [place] | | | | | | [address] | | | | | | [phone] | | | +--------+ + + + [...] | | | | | [place] [address] | | | | | | [phone] | | | | | | | | +--------+---------+ + + + as of this encounter Visit Diagnoses Not on filein this encounter"
--- OUTSIDE RECORDS SUMMARY | ~2018-06-15 | XMS | Encounter Summary ---
Demographics + + + | Address | [address] | | | [place] [address] | + + + | Home Phone | | + + + | Preferred Language | Unknown | + + + | Marital Status | | + + + | Rastafari Affiliation | 1041 | + + + [...] Team Providers + +------+ + | Care Corrugator Machine Operator Name | Role | Phone [...] | | | | | sequela | [place] [address] | [address] | | | | | Lumbar | Phone: | Phone: | | | | | radiculopath | [phone] | [phone] | | | | | y | Fax: | Fax: | | | | | Procedures | [phone] | [phone] | | | | | HIM 04/17/18 [...] fracture of fifth | | | | [place], | [address] [place] | lumbar vertebra, | | | | [place] [address] | [place] [address] | sequela (Primary | | | | [phone] | [phone] | Dx); Lumbar | | | | [...] + + | [facility] RE[facility] TO [facility] | Routin | Closed Compression | [...]
--- OUTSIDE RECORDS SUMMARY | ~2018-06-15 | XMS | Encounter Summary ---
Demographics + + + | Address | [address] | | | [place] [address] | + + + | Home Phone | | + + + | Preferred Language | Unknown | + + + | Marital Status | | + + + | Tenriism Affiliation | 1041 | + + + [...] Team Providers + +------+ + | Care Mining Helper Name | Role | Phone | [...] [address] | | | | | [place], | [address] [place] | | | | | [place] [address] | [place] [address] | | | | | [phone] | [phone] | | | | | | | [...]
--- OUTSIDE RECORDS SUMMARY | ~2018-06-15 | XMS | Encounter Summary ---
Demographics + + + | Address | [address] | | | [place] [address] | + + + | Home Phone | | + + + | Preferred Language | Unknown | + + + | Marital Status | | + + + | Congregational Affiliation | 1013 | + + + | Race | Unknown | + + + | Ethnic Group | Unknown | + + + Author + + + | Author | [facility] | + + + | Organization | [facility] [employer] [facility] | + + + | Address [...] + +------+ + | Care Internet Sales Representative Name | Role | Phone [...] + | 05/26/ | Hospital | [facility] | See, Medical | Pain | | 2018 | Encounter | [facility] | Record | | | | | RADIOLOGY [address] | | | | | | [place] [address] | | | | | | [phone] | | | +--------+ + + + [...] | 2018 | Visit | | [address] | | | | | | [place] [address] | | | | | | [phone] | | | | | | | [...] | + + + + + | [facility] | [address] | [place] [address] | | + + + + + in this encounter Visit Diagnoses + + | Diagnosis | + + | Pain | + + | Generalized pain | + +"
--- OUTSIDE RECORDS SUMMARY | ~2018-06-15 | XMS | Encounter Summary ---
Demographics + + + | Address | [address] | | | [place] [address] | + + + | Home Phone | | + + + | Preferred Language | Unknown | + + + | Marital Status | | + + + | Yazidism Affiliation | 1013 | + + + | Race | Unknown | + + + | Ethnic Group | Unknown | + + + Author + + + | Author | [facility] [employer] | + + + | Organization | [facility] [employer] | + + + | Address [...] Providers + +------+ + | Care Principal Data Architect Name | Role | Phone | [...] | [facility] | | 2018 | | [facility] | [address] | | | | | Operating Room [address] | [place] [address] | | | | | [address] | [phone] | | | | | [place] [address] | | | | | | [phone] | | | +--------+---------+ + + + [...] directed. Remove the small bandages on your nhoxpbak27 to 48hours after the surgery. Don t shower or soak in a bathtub for1 to 2days after the surgery. Use an ice packor bag of frozen peas or something similar wrapped in a thin towel to reduce the swelling and pain around incision sites. Put the ice pack on the area for20 minutes,then remove it [id number]. Repeat as needed. Wear your brace, if you were told to do so by your doctor. And to help stay flexible, be nd as much as the brace allows you to. For the first1 to 2days after the surgery, keep your head raised up when you are lyi ng down. Take short walks. Start by walking yqr1irmrggy at a time. Then gradually build up yo ur time and distance. Don t drive [id number] after surgery. And never drive while taking [...] healthcare provider Shaking chills Date Last Reviewed: 09/15/201519996872-[address] [employer] [place] [address]. All righ ts reserved. This information is [...] Visit | | [address] [facility] [facility] | | | | | | [place] [address] | | | | | | [phone] | | | | | | | [...] | [address] | [place] [address] | | + + + + + POCT glucose (06/13/2018 6:47 AM) + + + + + | Component | Value | Ref Range | Performed At | + + + + + | GLUCOSE,POC SCREEN | 70Comment: Testing | 65 - 99 mg/dL | [facility] | | | performed at [facility];[address] | | | | | [facility];[place] | | | | | [address] | | | + + + + + + + + + + | Performing | Address | City/State/Zipcode | Phone Number | | Organization | | | | + + + + + | [facility] | [address] | [place] [address] | | + + + + + [...] mLs | | Back | | 0.5% -1:301157 30 mL in lidocaine | | 8 [...]
--- OUTSIDE RECORDS SUMMARY | ~2018-06-15 | XMS | Encounter Summary ---
Demographics + + + | Address | [address] | | | [place] [address] | + + + | Home Phone | | + + + | Preferred Language | Unknown | + + + | Marital Status | | + + + | Taoism Affiliation | 1041 | + + + [...] | + + + + + | Goznalez Menchaca | ECON | NA | | | | | [place] | | + + + + + Care Team Providers + +------+ + | Care House Detective Name | Role | Phone | + [...] [place] | | | | | [phone] | [place] [address] | | +--------+ + + + + [...] encounter Results MRI Brain wo Contrast (02/25/2018 9950) + + + | Narrative | Performed [...]
--- OUTSIDE RECORDS SUMMARY | ~2018-06-15 | XMS | Clinical Summary ---
Demographics + + + | Address | [address] | | | [place] [address] | + + + | Home Phone | | + + + | Preferred Language | Unknown | + + + | Marital Status | | + + + | Gnosticist Affiliation | 1013 | + + + | Race | Unknown | + + + | Ethnic Group | Unknown | + + + Author + + + | Author | [facility] | + + + | Organization | [facility] [facility] | + + + | Address [...] Providers + +------+ + | Care Mechanical And Auto Body Car Checker Name | Role | Phone | [...] Overview: Added automatically from request for surgery [id number] | + + + + + | [...] encounter | | | | | | ([facility]) | +--------+ + + + [...] | | 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 | | +--------+ + + + + [...] encounter | | | | | | ([facility]) (Primary Dx); | | | [...] [place] | | | | | | [place] [address] | | | | | | [phone] | | | | | | | [...] | + + + + + | [facility] | [address] | [place] [address] | | + + + + + POCT glucose (06/13/2018 6:47 AM) + + + + + | Component | Value | Ref Range | Performed At | + + + + + | GLUCOSE,POC SCREEN | 70Comment: Testing | 65 - 99 mg/dL | [facility] | | | performed at [facility];[address] | | | [address];[place] | | | | | [address] | | | + + + + + + + + + + | Performing | Address | City/State/Zipcode | Phone Number | | Organization | | | | + + + + + | [facility] | [address] | [place] [address] | | + + + + + [...] | [facility] | | | performed at [facility], [address] | | LABORATORY | | | [address], | | | | | [place] [address] | | | + + + + + + + | Specimen | + + | Blood | + + + + + + + | Performing | Address | City/State/Zipcode | Phone Number | | Organization | | | | + + + + + | [facility] | [address] | [place] [address] | [phone] | | LABORATORY | [address]vd[address] | | [...] 0.7 | 0.50 - 1.00 mg/dL | [facility] | | | | | LABORATORY | [...] >60Comment: GFR <60: | >60 mL/min/1.73m2 | [facility] | | | CHRONIC KIDNEY DISEASE, | [...] [address] | | | | | [facility], | | | | | [place] [address] | | | + + + + + + + | Specimen | + + | Blood | + + + + + + + | Performing | Address | City/State/Zipcode | Phone Number | | Organization | | | | + + + + + | [facility] | [address] | [place] [address] | [phone] | | LABORATORY | Andrzej. | | [...] + + + + | Calculated P Burnside | 80 | degrees | [facility] | + + + + + | Calculated R Burnside | -9 | degrees | [facility] | + + + + + | Calculated T Burnside | 69 | degrees | [facility] [...] + + + | [facility] | [address] | [facility] [address] | | + + + + + [...] | + + + + + | [facility] | [address] | [place] [address] | | + + + + + [...] +------+-------+ + | MEDICARE | MEDICA | [id number] | | | [address] | | | RE | | | | [place] [address] | | | IP-OP | | | | | + +--------+ +------+-------+ + | COMMERCIAL OTHER | COMMER | [id number] | | | | | | CIAL [...] | | | jose | | | [address] | [place] [address] | + +--------+ +--------+ + +
--- OUTSIDE RECORDS SUMMARY | ~2018-06-15 | XMS | Encounter Summary ---
Demographics + + + | Address | [address] | | | [place] [address] | + + + | Home Phone [...] Team Providers + +------+ + | Care Pulmonary Physician Name | Role | Phone | [...] | 04/10/ | Telephone | [facility] | Nick Martinez, | Medication Follow-up | | 2017 | | PHYSIATRY [address] | PA-C [address] | | | | | [place], | [address] [place] | | | | | [place] [address] | [place] [address] | | | | | [phone] | [phone] | | | | | | | [...]
--- OUTSIDE RECORDS SUMMARY | ~2018-06-15 | XMS | Encounter Summary ---
Demographics + + + | Address | [address] | | | [place] [address] | + + + | Home Phone [...] Providers + +------+ + | Care Principal Java Developer Name | Role | Phone [...] + + | 04/06/ | Telephone | [facility] | Nick Martinez, | Results, Imaging | | 2017 | | PHYSIATRY [address] | PA-C [address] | (MRI/Cancelled | | | | [place], | [address] [place] | Injection) | | | | [place] [address] | [place] [address] | | | | | [phone] | [phone] | | | | | | | [...]
--- OUTSIDE RECORDS SUMMARY | ~2018-06-15 | XMS | Encounter Summary ---
Demographics + + + | Address | [address] | | | [place] [address] | + + + | Home Phone | | + + + | Preferred Language | Unknown | + + + | Marital Status | | + + + | Congregational Affiliation | 1013 | + + + | Race | Unknown | + + + | Ethnic Group | Unknown | + + + Author + + + | Author | [facility] | + + + | Organization | [facility] [employer] | + + + | Address [...] Providers + +------+ + | Care Hand Drawer In Helper Name | Role | Phone | + +------+ + | Oxana Nye NP | PCP | | + +------+ + Encounter Details +--------+ + + + + | Date | Type | Department | Care Team | Description | +--------+ + + + + | 05/31/ | Documentati | [facility] | Maykel Hutchins MD | | | 2018 | on Only | [facility] | [address] | | | | | [address] | [place] [address] | | | | | [place], [place] | [phone] | | | | | [address] | | | | | | [phone] | | | +--------+ + + + [...] [address] | | | | | | [place] [address] | | | | | | [phone] | | | | | | | | +--------+---------+ + + + as of this encounter Visit Diagnoses Not on filein this encounter"
--- OUTSIDE RECORDS SUMMARY | ~2018-06-15 | XMS | Encounter Summary ---
Demographics + + + | Address | [address] | | | [place] [address] | + + + | Home Phone | | + + + | Preferred Language | Unknown | + + + | Marital Status | | + + + | Gnosticist Affiliation | 1013 | + + + | Race | Unknown | + + + | Ethnic Group | Unknown | + + + Author + + + | Author | [facility] | + + + | Organization | [facility] [employer] [facility] | + + + | Address [...] Team Providers + +------+ + | Care Gluer Name | Role | Phone | + +------+ + | Wendi Aiken PA-C | PCP | | + +------+ + Encounter Details +--------+ + + + + | Date | Type | Department | Care Team | Description | +--------+ + + + + | 06/13/ | Orders Only | [facility] | Jennifer Hicks CMA | | | 2017 | | [facility]O [facility]TS | | | | | | MEDICINE RADHA | | | | | | [address] | | | | | | [place], [place] | | | | | | [address] | | | | | | [phone] | | | +--------+ + + + [...] | | | | | [place] [address] | | | | | | [phone] | | | | | | | | +--------+---------+ + + + as of this encounter Visit Diagnoses Not on filein this encounter"
--- OUTSIDE RECORDS SUMMARY | ~2018-06-15 | XMS | Encounter Summary ---
Demographics + + + | Address | [address] | | | [place] [address] | + + + | Home Phone | | + + + | Preferred Language | Unknown | + + + | Marital Status | | + + + | Church Affiliation | 1013 | + + + | Race | Unknown | + + + | Ethnic Group | Unknown | + + + Author + + + | Author | [facility] | + + + | Organization | [facility] [employer] [facility] | + + + | Address [...] Team Providers + +------+ + | Care Sub Acute Care Nurse Name | Role | Phone | + +------+ + | Wendi Aiken PA-C | PCP | | + +------+ + Encounter Details +--------+ + + + + | Date | Type | Department | Care Team | Description | +--------+ + + + + | 06/12/ | Orders Only | [facility] | Alfredo Casillas DO | | | 2017 | | [facility] | [address] | | | | | PAIN [address] | [place] [address] | | | | | Blvd [place], [place] | [phone] | | | | | [address] | [...] | | | | | [place] [address] | | | | | | [phone] | | | | | | | | +--------+---------+ + + + as of this encounter Visit Diagnoses Not on filein this encounter"
--- OUTSIDE RECORDS SUMMARY | ~2018-06-15 | XMS | Clinical Summary ---
Demographics + + + | Address | [address] | | | [place] [address] | + + + | Home Phone | | + + + | Preferred Language | Unknown | + + + | Marital Status | | + + + | Gnosticism Affiliation | 1041 | + + + [...] + +------+ + | Care Injection Molding Technician Name | Role | Phone | [...] + +---+ + + | Overview: LOUISE [id number] Decision | + + + +---+ | [...] | 2017 | Encounter | | BRI Engine Specialist, | | | | | | [facility] [...] + + | Brother | | | [place] | | | | (Age | | [...] +---------+ | INDIVIDUAL ASSURANCE | INDIVI | [id number] | Indemn | | | | COMPANY | DUAL | | ity | | | | | ASSURA | | | | | | | NCE CO | | | | | | | MDCR | | | | | | | SUPPL | | | | | + +--------+ +--------+ +---------+ | MEDICARE | MEDICA | [id number] | Medica | +1- | | | | RE | | re | [phone] | | | | PART A | | | | | | | AND B | | | | | + +--------+ +--------+ +---------+ | MEDICARE | MEDICA | [id number] | Medica | +- | | | | RE | | re | [phone] | | | | PART A | | | | | | | AND B | | | | | + +--------+ +--------+ +---------+ | INDIVIDUAL ASSURANCE | INDIVI | [id number] | Indemn | | | | COMPANY [...] | j[place] | | | [phone] | [phone] | + +--------+ +--------+ + + | YU RUBIO | Person | Self | [birth year] Home: | [address] | | JOSEPH [place]OWEN | antonio/Benji | | 1945 | [phone] | [address] [place] | | | j[place] | | | [phone] | [phone] | + +--------+ +--------+ + +
--- OUTSIDE RECORDS SUMMARY | ~2018-06-15 | XMS | Encounter Summary ---
Demographics + + + | Address | [address] | | | [place] [address] | + + + | Home Phone | | + + + | Preferred Language | Unknown | + + + | Marital Status | | + + + | Jainism Affiliation | 1013 | + + + | Race | Unknown | + + + | Ethnic Group | Unknown | + + + Author + + + | Author | [facility] | + + + | Organization | [facility] [employer] [facility] | + + + | Address [...] Providers + +------+ + | Care Web Search Evaluator Name | Role | Phone | + [...] + + | 06/02/ | Telephone | [facility] | Savi Salmon, | Other (Request to | | 2017 | | [facility] [place] | [place] | speak to [place]) | | | | [address] | | | | | | [place] | | | | | | [address] | | | | | | [phone] | | | +--------+ + + + [...] 2017 | Visit | | [address] [facility] | | | | | | [place] [address] | | | | | | [phone] | | | | | | | | +--------+---------+ + + + as of this encounter Visit Diagnoses Not on filein this encounter"
--- OUTSIDE RECORDS SUMMARY | ~2018-06-15 | XMS | Encounter Summary ---
Demographics + + + | Address | [address] | | | [place] [address] | + + + | Home Phone | | + + + | Preferred Language | Unknown | + + + | Marital Status | | + + + | Latter-Day Affiliation | 1013 | + + + | Race | Unknown | + + + | Ethnic Group | Unknown | + + + Author + + + | Author | [facility] [employer] | + + + | Organization | [facility] [employer] | + + + | Address [...] + + | 06/13/ | Procedure | [facility] | | | | 2018 | [facility] | | | | | | Operating Room 88 | | | | | | [facility] | | | | | | [place] [address] | | | | | | [phone] | | | +--------+ + + + [...] | 2018 | Visit | | [address] [facility] | | | | | | [place] [address] | | | | | | [phone] | | | | | | | | +--------+---------+ + + + as of this encounter Visit Diagnoses Not on filein this encounter"
--- OUTSIDE RECORDS SUMMARY | ~2018-06-15 | XMS | Encounter Summary ---
Demographics + + + | Address | [address] | | | [place] [address] | + + + | Home Phone | | + + + | Preferred Language | Unknown | + + + | Marital Status | | + + + | Denominational Affiliation | 1041 | + + + [...] Team Providers + +------+ + | Care Matchbook Assembler Name | Role | Phone | [...] + + | 04/10/ | Telephone | [facility] | Nick Martinez, | Medication Prior | | 2017 | | PHYSIATRY [address] | PA-C [address] | Authorization | | | | [place], | [address] [place] | (Lidocaine Patch ) | | | | [place] [address] | [place] [address] | | | | | [phone] | [phone] | | | | | | | [...]
--- OUTSIDE RECORDS SUMMARY | ~2018-06-15 | XMS | Clinical Summary ---
Demographics + + + | Address | [address] | | | [place] [address] | + + + | Home Phone [...] Providers + +------+ + | Care Adjunct Faculty Name | Role | Phone | + +------+ + | Oxana Nye | PP | Unavailable | + +------+ + Source Comments [facility] is [facility] and [facility] Allergies + + + + [...] | re | [address] | [place] [address] | | | B | | | | | + +--------+ +--------+ + + | [employer] | AARP | xxxxxxxxxx | Indemn | +- | [address] | | RETIRED PEOPLE | | | ity | [phone] | [place] [address] | + +--------+ +--------+ + + + +--------+ +--------+ + + | Guarantor Name | Accoun | Relation to | Date | Phone | Billing Address | | | t Type | Patient | of | | | | | | | | | | + +--------+ +--------+ + + | YU HARMON | Person | Self | [birth year] | Home: | [address] | | JOSE[place]OWEN | al/Benji | | 1945 | [phone] [address] [place] | | | jose | | | [phone] | [phone] | + +--------+ +--------+ + +
--- OUTSIDE RECORDS SUMMARY | ~2018-06-15 | XMS | Encounter Summary ---
Demographics + + + | Address | [address] | | | [place] [address] | + + + | Home Phone | | + + + | Preferred Language | Unknown | + + + | Marital Status | | + + + | Congregational Affiliation | 1013 | + + + | Race | Unknown | + + + | Ethnic Group | Unknown | + + + Author + + + | Author | [facility] [employer] | + + + | Organization | [facility] [employer] | + + + | Address [...] Team Providers + +------+ + | Care Boiling Tub Operator Name | Role | Phone | [...] + + | 06/05/ | Telephone | [facility] | Jennifer Hicks, HAIR BOILER OPERATOR | Other (referral ) | | 2017 | | [facility] | | | | | | MEDICINE [facility] | | | | | | [address] | | | | | | [place] | | | | | | [address] | | | | | | [phone] | | | +--------+ + + + [...] | 2017 | Visit | | [address] [facility] | | | | | | [place] [address] | | | | | | [phone] | | | | | | | | +--------+---------+ + + + as of this encounter Visit Diagnoses Not on filein this encounter"
--- OUTSIDE RECORDS SUMMARY | ~2018-06-15 | XMS | Encounter Summary ---
Demographics + + + | Address | [address] | | | [place] [address] | + + + | Home Phone | | + + + | Preferred Language | Unknown | + + + | Marital Status | | + + + | Jewish Affiliation | 1013 | + + + | Race | Unknown | + + + | Ethnic Group | Unknown | + + + Author + + + | Author | [facility] [employer] | + + + | Organization | [facility] [employer] | + + + | Address [...] Team Providers + +------+ + | Care Carbonizer Tester Name | Role | Phone | [...] + + | 06/02/ | Telephone | [facility] | Savi Salmon, | Other (Request to | | 2017 | | [facility] [place] | [place] | speak to [place]) | | | | [address] | | | | | | [place] | | | | | | [address] | | | | | | [phone] | | | +--------+ + + + [...] | 2017 | Visit | | [address] [facility] | | | | | | [place] [address] | | | | | | [phone] | | | | | | | | +--------+---------+ + + + as of this encounter Visit Diagnoses Not on filein this encounter"
--- OUTSIDE RECORDS SUMMARY | ~2018-06-15 | XMS | Encounter Summary ---
Demographics + + + | Address | [address] | | | [place] [address] | + + + | Home Phone | | + + + | Preferred Language | Unknown | + + + | Marital Status | | + + + | Scientology Affiliation | 1013 | + + + | Race | Unknown | + + + | Ethnic Group | Unknown | + + + Author + + + | Author | [facility] [employer] | + + + | Organization | [facility] [employer] | + + + | Address [...] Providers + +------+ + | Care Supervisor Grove Name | Role | Phone | + [...] + + | 05/26/ | Hospital | [facility] | See, Medical | Pain | | 2018 | Encounter | [facility] | Record | | | | | RADIOLOGY [address] | | | | | [address] | | | | | | [place] [address] | | | | | | [phone] | | | +--------+ + + + [...] Visit | | [address] [facility] | | | | | | [place] [address] | | | | | | [phone] | | | | | | | [...] | + + + + + | [facility] | [address] | [place] [address] | | + + + + + in this encounter Visit Diagnoses + + | Diagnosis | + + | Pain | + + | Generalized pain | + +"
--- OUTSIDE RECORDS SUMMARY | ~2018-06-15 | XMS | Encounter Summary ---
Demographics + + + | Address | [address] | | | [place] [address] | + + + | Home Phone | | + + + | Preferred Language | Unknown | + + + | Marital Status | | + + + | Worship Affiliation | 1041 | + + + [...] Team Providers + +------+ + | Care Regrader Name | Role | Phone | + [...] [place] [place] | | | | | [phone] | [place] [address] | | +--------+ + + + + [...]
--- OUTSIDE RECORDS SUMMARY | ~2018-06-15 | XMS | Encounter Summary ---
Demographics + + + | Address | [address] | | | [place] [address] | + + + | Home Phone | | + + + | Preferred Language | Unknown | + + + | Marital Status | | + + + | Mandaeism Affiliation | 1013 | + + + | Race | Unknown | + + + | Ethnic Group | Unknown | + + + Author + + + | Author | [facility] [employer] | + + + | Organization | [facility] [employer] | + + + | Address [...] Providers + +------+ + | Care Supervisor Water Treatment Plant Name | Role | Phone | + [...] + + | 06/05/ | Telephone | [facility] | Jennifer Hicks, RETAIL ASSOCIATE | Other (referral ) | | 2017 | | [facility] | | | | | | MEDICINE RADHA | | | | | | [address] | | | | | | [place] | | | | | | [address] | | | | | | [phone] | | | +--------+ + + + [...] | Visit | | [address] [facility] | | | | | | [place] [address] | | | | | | [phone] | | | | | | | | +--------+---------+ + + + as of this encounter Visit Diagnoses Not on filein this encounter"
--- OUTSIDE RECORDS SUMMARY | ~2018-06-15 | XMS | Encounter Summary ---
Demographics + + + | Address | [address] | | | [place] [address] | + + + | Home Phone | | + + + | Preferred Language | Unknown | + + + | Marital Status | | + + + | Adventist Affiliation | 1041 | + + + [...] Team Providers + +------+ + | Care Unit Clerk Name | Role | Phone | [...] + + | 04/17/ | Telephone | [facility] | Nick Martinez, | Yehuda (Back Brace) | | 2017 | | PHYSIATRY [address] | PA-C [address] | | | | | [place], | [address] [place] | | | | | [place] [address] | [place] [address] | | | | | [phone] | [phone] | | | | | | | [...]
--- OUTSIDE RECORDS SUMMARY | ~2018-06-15 | XMS | Encounter Summary ---
Demographics + + + | Address | [address] | | | [place] [address] | + + + | Home Phone [...] Team Providers + +------+ + | Care Bullet Maker Name | Role | Phone | + +------+ + | Wendi Aiken | PCP | | + +------+ + Encounter Details +--------+ + + + + | Date | Type | Department | Care Team | Description | +--------+ + + + + | 04/06/ | Hospital | [facility] | Nick Martinez, | Lumbar radiculopathy | | 2018 | Encounter | MED CTR XRAY [address] | PA-C [address] | | | | | [place] | [address] [place] | | | | | [place] [address] | [place] [address] | | | | | [phone] | [phone] | | | | | | | | | | | | Paginator, [facility] | | +--------+ + + + [...] as | | | | | | tablet | needed for Pain. | | | | | + + +-------+---------+ + + | clonazepam | Take 1 mg by mouth | | | | | | (KLONOPIN) 2 MG | Twice daily as | | | | | | tablet | needed. | | | | | + + +-------+---------+ + + | | Take 1 tablet by | | | | | | HYDROcodone-acetamin | mouth every 6 hours | | | | | | [...] at | patch | | 18 | | | | [...] times daily. | | | | | | EX | | | | | | + + +-------+---------+ + + | Loratadine 10 MG | Take by mouth. | | | | | | CAPS | | | | | | + + +-------+---------+ + + | methocarbamol | Take 750 mg by mouth | | | | | | (ROBAXIN) 750 mg | 4 times daily. | | | | | | tablet | | | | | | + + +-------+---------+ + + | mirabegron | Take 25 mg by mouth | | | | | | (MYRBETRIQ) 25 mg ER | Daily. | | | | | | tablet | | | | | | + + +-------+---------+ + + | ranitidine | Take 150 mg by mouth | | | | | | (ZANTAC) 150 MG | as needed. | | | | | | capsule | | | | | | + + +-------+---------+ + + | Ropinirole HCl | Take 4.5 mg by mouth | | | 08/31/20 | | | (REQUIP XL) 6 MG | 4 times daily. | | | 11 | | | TB24 | | | | [...] 13:20 | | | | | ONCE, [facility] 04/06/18 at 1330, For 1 | | [...] ONCE, [facility] 04/06/18 at 1330, | | PDT | | | | | For 1 dose | | | | | | + +-------+ +-------+---+---+ +---+---+ | | | +---+---+ + +-------+ +-------+---+---+ | lidocaine (PF) 1% injection 2 | Given | 04/06/2018 | 2 mLs | | | | mL 2 mL, Other, ONCE, [facility] 04/06/18 | | 13:20 | | | [...] | | (Comment | | Intradermal, ONCE, [facility] 04/06/18 at | | PDT | | | ) | | 1330, For 1 dose | | | | | | + +-------+ +-------+---+ + +---+---+ | | | +---+---+ in this encounter"
--- OUTSIDE RECORDS SUMMARY | ~2018-06-15 | XMS | Encounter Summary ---
Demographics + + + | Address | [address] | | | [place] [address] | + + + | Home Phone [...] Team Providers + +------+ + | Care Armed Security Professional Name | Role | Phone | [...] + + | 04/03/ | Telephone | [facility] | Nick Martinez, | Medication Question | | 2017 | | PHYSIATRY [address] | PA-C [address] | | | | | [place], | [address] [place] | | | | | [place] [address] | [place] [address] | | | | | [phone] | [phone] | | | | | | | [...]
--- OUTSIDE RECORDS SUMMARY | ~2018-06-15 | XMS | Encounter Summary ---
Demographics + + + | Address | [address] | | | [place] [address] | + + + | Home Phone | | + + + | Preferred Language | Unknown | + + + | Marital Status | | + + + | Caodaism Affiliation | 1013 | + + + | Race | Unknown | + + + | Ethnic Group | Unknown | + + + Author + + + | Author | [facility] | + + + | Organization | [facility] [employer] | + + + | Address [...] + +------+ + | Care Manager Of Radiology Name | Role | Phone | + [...] + + | 06/13/ | Anesthesia | [facility] | Juventino [place], | | | 2018 | Event | [facility] | PIPE FOREMAN [address] | | | | | Operating Room [address] | [place] [address] | | | | | [address] | [phone] | | | | | [place] [address] | | | | | | [phone] | | | +--------+ + + + [...] | 2017 | Visit | | [address] [facility] | | | | | | [place] [address] | | | | | | [phone] | | | | | | | [...] | | | | | 30 Minutes, 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
--- OUTSIDE RECORDS SUMMARY | ~2018-06-15 | XMS | Encounter Summary ---
Demographics + + + | Address | [address] | | | [place] [address] | + + + | Home Phone [...] Providers + +------+ + | Care General I Farmworker Name | Role | Phone | + +------+ + | Wendi Aiken | PCP | | + +------+ + Encounter Details +--------+ + + + + | Date | Type | Department | Care Team | Description | +--------+ + + + + | 04/06/ | Hospital | [facility] | Nick Martinez, | Lumbar radiculopathy | | 2018 | Encounter | MED CTR XRAY [address] | PA-C [address] | | | | | [place] | [address] [place] | | | | | [place] [address] | [place] [address] | | | | | [phone] | [phone] | | | | | | | | | | | | House Parent, [facility] | | +--------+ + + + [...] | | mL 2 mL, Other, ONCE, [facility] 04/06/18 | | 13:20 | | | [...] | | (Comment | | Intradermal, ONCE, [facility] 04/06/18 at | | PDT | | | ) | | 1330, For 1 dose | | | | | | + +-------+ +-------+---+ + +---+---+ | | | +---+---+ in this encounter"
--- OUTSIDE RECORDS SUMMARY | ~2018-06-15 | XMS | Encounter Summary ---
Demographics + + + | Address | [address] | | | [place] [address] | + + + | Home Phone [...] Team Providers + +------+ + | Care Registered Dietician Name | Role | Phone | + [...] + + | 04/06/ | Telephone | [facility] | Nick Martinez, | Results, Imaging | | 2017 | | PHYSIATRY [address] | PA-C [address] | (MRI/Cancelled | | | | [place], | [address] [place] | Injection) | | | | [place] [address] | [place] [address] | | | | | [phone] | [phone] | | | | | | | [...]
--- OUTSIDE RECORDS SUMMARY | ~2018-06-15 | XMS | Encounter Summary ---
Demographics + + + | Address | [address] | | | [place] [address] | + + + | Home Phone | | + + + | Preferred Language | Unknown | + + + | Marital Status | | + + + | Caodaism Affiliation | 1013 | + + + | Race | Unknown | + + + | Ethnic Group | Unknown | + + + Author + + + | Author | [facility] [employer] | + + + | Organization | [facility] [employer] | + + + | Address [...] Providers + +------+ + | Care Yarn Skeins Examiner Name | Role | Phone | [...] + + | 05/26/ | Hospital | [facility] | See, Medical | Pain | | 2018 | Encounter | [facility] | Record | | | | | RADIOLOGY [address] | | | [address] | | | | | | [place] [address] | | | | | | [phone] | | | +--------+ + + + [...] | 2018 | Visit | | [address] [facility] | | | | | | [place] [address] | | | | | | [phone] | | | | | | | [...] | + + + + + | [facility] | [address] | [place] [address] | | + + + + + in this encounter Visit Diagnoses + + | Diagnosis | + + | Pain | + + | Generalized pain | + +"
[~2018-06-15 20:40] MED LIST changes: +FENTANYL1 EACH TD
== END 2018-06-15 23:21 | disposition home or self-care (01) ==
LOC: ED 20:40
DX: M54.5 Low back pain (principal); E11.9 Type 2 diabetes mellitus without complications; Z79.899 Other long term (current) 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; Z79.82 Long term (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 of aspirin; Z98.890 Other specified postprocedural states; W19.XXXA Unspecified fall, initial encounter
CPT/HCPCS: 72131; 99284

== ENCOUNTER 2018-07-05 18:11 | Emergency (ER) | payer MEDICARE, OTHER ==
[~2018-07-05] VITALS: Ht 157.5 cm; Wt 61.2 kg
--- OUTSIDE RECORDS SUMMARY | ~2018-07-05 | XMS | Encounter Summary ---
Demographics + + + | Address | [address] | | | [place] [address] | + + + | Home Phone | | + + + | Preferred Language | Unknown | + + + | Marital Status | | + + + | Yazidi Affiliation | 1013 | + + + | Race | Unknown | + + + | Ethnic Group | Unknown | + + + Author + + + | Author | [facility] [employer] | + + + | Organization | [facility] [employer] | + + + | Address | [...] | + + +---------+ + | Nathalia Weinstein | ECON | Unknown | | + + +---------+ + Care Team Providers + +------+ + | Care Career Guidance Technician Name | Role | Phone | + +------+ + | Wendi Aiken PA-C | PCP | | + +------+ + Reason for Referral MRI/CAT Scan (Routine) + +--------+ + + + + | Status | Reason | Specialty | Diagnoses / | Referred By | Referred To | | | | | Procedures | Contact | Contact | + +--------+ + + + + | Pending | | Radiology | Diagnoses | See, | | | Review | | | Pain | Medical | | | | | | Procedures | Record | | | | | | CT lumbar | | | | | | | spine | | | | | | | without | | | | | | | contrast | | | + +--------+ + + + + Encounter Details +--------+ + + + + | Date | Type | Department | Care Team | Description | +--------+ + + + + | 05/26/ | Ancillary | [facility] | See, Medical | Pain | | 2018 | Orders | [facility] | Record | | | | | [address] | | | | | | [place] [address] | | | | | | [phone] | | | +--------+ + + + [...] on file | | + + + as of this encounter Plan of Treatment +--------+---------+ + + + | Date | Type | Specialty | Care Team | Description | +--------+---------+ + + + | 07/19/ | Office | Dolorology | Alfredo Casillas DO | | | 2017 | Visit | | [address] [facility] | | | | | | [place] [address] | | | | | | [phone] | | | | | | | | +--------+---------+ + + + as of this encounter Results CT lumbar spine without contrast (05/25/2014 2:55 AM) + + + | Narrative | Performed At | + + + | This is a non-reportable procedure without a radiologist report and | [facility] | | is used for image storage only | [facility]Y | + + + + + + + + | Performing | Address | City/State/Zipcode | Phone Number | | Organization | | | | + + + + + | [facility] | [address] | [place] [address] | | + + + + + in this encounter Visit Diagnoses + + | Diagnosis | + + | Pain | + + | Generalized pain | + +"
--- OUTSIDE RECORDS SUMMARY | ~2018-07-05 | XMS | Encounter Summary ---
Demographics + + + | Address | [address] | | | [place] [address] | + + + | Home Phone | | + + + | Preferred Language | Unknown | + + + | Marital Status | | + + + | Moravian Affiliation | 1041 | + + + | Race | Unknown | + + + | Ethnic Group | Unknown | + + + Author + + + | Author | [facility] | | | and [place]rit[place] | + + + | Organization | [facility] | | | and [...] Team Providers + +------+ + | Care Bead Wrapper Name | Role | Phone | + +------+ + | Wendi Aiken | PCP | | + +------+ + Encounter Details +--------+ + + + + | Date | Type | Department | Care Team | Description | +--------+ + + + + | 05/10/ | Ancillary | [facility] | Provider, | | | 2018 | Orders | MED CTR EXTERNAL | [address] | | | | | IMAGING | [place] | | | | | [phone] | [place] [address] | | +--------+ + + + + [...] Treatment Not on fileas of this encounter Results MRI Lumbar Spine wo Contrast (05/09/2018 1125) + + + | Narrative | Performed At | + + + | External films for comparison only | [facility] | | | | | No results will be in the chart. | | + + + + +---------+ + + | Performing | Address | City/State/Zipcode | Phone Number | | Organization | | | | + +---------+ + + | [facility] | | | | + +---------+ + + in this encounter Visit Diagnoses Not on filein this encounter"
--- OUTSIDE RECORDS SUMMARY | ~2018-07-05 | XMS | Encounter Summary ---
Demographics + + + | Address | [address] | | | [place] [address] | + + + | Home Phone | | + + + | Preferred Language | Unknown | + + + | Marital Status | | + + + | Confucianism Affiliation | 1041 | + + + | Race | Unknown | + + + | Ethnic Group | Unknown | + + + Author + + + | Author | [facility] | | | and [place] | + + + | Organization | [facility] | | | [...] Team Providers + +------+ + | Care Therapeutic Recreation Director Name | Role | Phone | + +------+ + | Wendi Aiken | PCP | | + +------+ + Encounter Details +--------+ + + + + | Date | Type | Department | Care Team | Description | +--------+ + + + + | 04/05/ | Imaging | [facility] | Provider, | | | 2018 | Exam | MED CTR EXTERNAL | [address] | | | | | IMAGING | [place] | | | | | [phone] | [place] [address] | | +--------+ + + + + [...] Treatment Not on fileas of this encounter Procedures + +--------+ + + + | Procedure Name | Priori | Date/Time | Associated Diagnosis | Comments | | | ty | | | | + +--------+ + + + | MRI LUMBAR SPINE WO | Routin | 04/05/2018 | | Results for this | | CONTRAST | e | 0705 PDT | | procedure are in the | | | | | | results section. | + +--------+ + + + in this encounter Results MRI Lumbar Spine wo Contrast (04/05/2018 07) + + + | Narrative | Performed [...]
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
--- OUTSIDE RECORDS SUMMARY | ~2018-07-05 | XMS | Encounter Summary ---
Demographics + + + | Address | [address] | | | [place] [address] | + + + | Home Phone | | + + + | Preferred Language | Unknown | + + + | Marital Status | | + + + | Advent Affiliation | 1013 | + + + | Race | Unknown | + + + | Ethnic Group | Unknown | + + + Author + + + | Author | [employer] [facility] | + + + | Organization | [facility] | + + + | Address | [...] Team Providers + +------+ + | Care Branch Director Name | Role | Phone | [...] | | | | | | | L5 | | | | | | | compression | | | | | | | fracture | | | | | | | Procedures | | | | | | | KYPHOPLASTY | | | +--------+--------+ + + + + Encounter Details +--------+ + + + + | Date | Type | Department | Care Team | Description | +--------+ + + + + | 06/13/ | Anesthesia | [facility] | Juventino [place], | | | 2018 | Event | [facility] | 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 Pt ID'd, anes H&P & plan | | /1 | 7 | | discussed in [facility]. Premed. To OR. | | 4/ | 3 | | | | 20 | 0 | | | | 18 | | | | +----+---+ + + | | 0 | Quick Note | Pt ID'd, anes H&P & plan discussed. SASAMA, FM O2. VS assessed | | | 7 | | prior to sedation. Pt NSR and with 8L FM O2 unless otherwise | | | 3 | | stated. | | | 2 | | | +----+---+ + + | | 0 | an shruti now | | | | 7 | | | | | 3 | | | | | 4 | | | +----+---+ + + | | 0 | an shruti now | Incision. Abx complete. | | | 7 | | | | | 4 | | | | | 5 | | | +----+---+ + + | | 0 | an stop | | | | 8 | data | | | | 2 | | | | | 4 | | | +----+---+ + + | | 0 | An Stop | | | | 8 | | | | | 3 | | | | | 1 | | | +----+---+ + + +------+ | Meds | +------+ + + + | Name | Total | + + + | fentanyl 50 mcg/mL | 100 mcg | + + + | lidocaine 2% | 40 mg | + + + | propofol bolus | 30 mg | + + + | propofol infusion | 129.25 mg | + + + | ceFAZolin (ANCEF) IVPB 2 g | 2 g | + + + | lactated ringers infusion | 300 mL | + + + + + | Name | + + | Aux O2 (L/min) | + + | N2O | + + | O2 | + + | Air | + + | N2O | + + + + | No blood administrations on file. | + + +--------+ + + + | Type | Details | Placement | Removal | +--------+ + + + | Wound | 06/13/18; 075; Incision; Back; | 06/13/18 0751 by | | | | Haydee | Flakita Arteaga | | | | | LUISA Méndez | | +--------+ + + + | Periph | Placement Date: 06/13/18; | 06/13/18 0656 by | 06/13/18 1409 by | | eral | Placement Time: 655; Removal | Tomas Wilkins RN | Cristiane Araujo RN | | ANIL | Date: 06/13/18; Removal Time: | | | | | 140; Size (Gauge): 20 G; | | | | | Orientation: Left; Location: | | | | | Wrist; Site Prep: | | | | | Chlorhexidine-Isopropyl Alcohol; | | | | | Insertion Attempts: 1 | | | +--------+ + + + in this encounter Social History + +-------+ +--------+------+ | Tobacco [...] | 2018 | Visit | | [address] [facility] | | | | | | [place] [address] | | | | | | [phone] | | | | | | | | +--------+---------+ + + + as of this encounter Visit Diagnoses Not on filein this encounter Administered Medications + +--------+ +------+------+------+ | Medication Order | MAR | Action | Dose | Rate | Site | | | Action | Date | | | | + +--------+ +------+------+------+ | ceFAZolin (ANCEF) IVPB 2 g 2 | Given | | 2 g | | | | g, Intravenous, Administer over | | 8 07:36 | | | | | 30 Minutes, [employer] Former To Dee Randall | | PDT | | | | | 06/13/18 at 0700, For 1 dose, Must | | | | | | | be completely infused before | | | | | | | incision is made. Redose every 4 | | | | | | | hours during procedure | | | | | | + +--------+ +------+------+------+ +---+---+ | | | +---+---+ + +-------+ +--------+---+---+ | fentaNYL (SUBLIMAZE) injection | Given | | 25 mcg | | | | Intravenous, PRN, Starting Tue | | 8 07:31 | | | | | 06/13/18 at 0731, Anesthesia | | PDT | | | | | Intra-op | | | | | | + +-------+ +--------+---+---+ +-------+ +--------+---+---+ | Given | | 25 mcg | | | | | 8 08:26 | | | | | | PDT | | | | +-------+ +--------+---+---+ | Given | | 50 mcg | | | | | 8 08:31 | | | | | | PDT | | | | +-------+ +--------+---+---+ +---+---+ | | | +---+---+ + +---------+ +---+---+---+ | lactated ringers infusion at | New Bag | | | | | | 30 mL/hr, Intravenous, | | 8 06:51 | | | | | Continuous, Starting Tue06/13/18 | | PDT | | | | | at 0700, For 365 days, Pre-op | | | | | | + +---------+ +---+---+---+ +---+---+ | | | +---+---+ + +-------+ +-------+---+---+ | lidocaine 2 % (MDV) 2 % | Given | | 40 mg | | | | injection Intravenous, PRN, | | 8 07:33 | | | | | Starting Tue06/13/18 at 0733, | | PDT | | | | | Anesthesia Intra-op | | | | | | + +-------+ +-------+---+---+ +---+---+ | | | +---+---+ + +-------+ +-------+---+---+ | propofol (DIPRIVAN) injection | Given | | 30 mg | | | | Intravenous, PRN, Starting Tue | | 8 07:33 | | | | | 06/13/18 at 0733, Anesthesia | | PDT | | | | | Intra-op | | | | | | + +-------+ +-------+---+---+ +---+---+ | | | +---+---+ + + + + +-------+---+ | propofol infusion Intravenous, | Rate/Dos | | 55 | 17.6 | | | Continuous PRN, Starting Tue | e Change | 8 07:51 | mcg/kg/m | mL/hr | | | 06/13/18 at 0735, Anesthesia | | PDT | in | | | | Intra-op | | | | | | + + + + +-------+---+ + + + +-------+---+ | Rate/Dose Change | | 45 | 14.4 | | | | 8 07:58 | mcg/kg/m | mL/hr | | | | PDT | in | | | + + + +-------+---+ | Rate/Dose Change | | 35 | 11.2 | | | | 8 08:20 | mcg/kg/m | mL/hr | | | | PDT | in | | | + + + +-------+---+ +---+---+ | | | +---+---+ in this encounter"
--- OUTSIDE RECORDS SUMMARY | ~2018-07-05 | XMS | Clinical Summary ---
Demographics + + + | Address | [address] | | | [place] [address] | + + + | Home Phone | | + + + | Preferred Language | Unknown | + + + | Marital Status | | + + + | Pentecostal Affiliation | 1013 | + + + | Race | Unknown | + + + | Ethnic Group | Unknown | + + + Author + + + | Author | [facility] | + + + | Organization | [facility] | + + + | Address | [...] Team Providers + +------+ + | Care Warp Hanger Name | Role | Phone | + [...] Overview: Added automatically from request for surgery [id number] | + + + + + | [...] | +--------+ + + + + | 07/04/ | Telephone | | Jennifer Hicks CMA | | | 2017 | | | | | +--------+ + + + + | 06/26/ | Telephone | | Jennifer Hicks CMA | | | 2017 | | | | | +--------+ + + + + | 06/21/ | Office | | Alfredo Casillas DO | Closed compression | | 2017 | Visit | | | fracture of fifth | | | | | | lumbar vertebra, | | | | | | initial encounter | | | | | | ([facility]) (Primary Dx); | | | | | | Lumbar pain; Pain of | | | | | | both hip joints | +--------+ + + + + | 06/20/ | Telephone | | Jennifer Hicks CMA | | | 2017 | | | | | +--------+ + + + + | 06/13/ | Hospital | | Alfredo Casillas DO | Closed compression | 2017 | Encounter | | | fracture of fifth | | | | | | lumbar vertebra, | | | | | | initial encounter | | | | | | ([facility]) | +--------+ + + + + | 06/13/ | Orders Only | | Jennifer Hicks CMA | | | 2018 | | | | | +--------+ + [...] | | 2018 | Event | | [employer]IC [employer]OGR[employer]HER | | +--------+ + + + + [...] Casillas DO | Closed compression | | 2017 | Visit | | | fracture of fifth | | | | | | lumbar vertebra, | | | | | | initial encounter | | | | | | ([facility]) (Primary Dx); | | | | | | Lumbar pain | +--------+ + + + + | 06/07/ | Telephone | | Jennifer Hicks, SOBEIDA | Other (questions ) | | 2017 [...] MA) | +--------+ + + + + | 06/01/ | Telephone | | Maykel Hutchins MD | Other (Patient is | | 2018 | | | | returning a call to | | | | | | Vicki about | | | | | | referral. She needs | | | | | | to schedule ) | +--------+ + + + + | 05/31/ | Documentati | | Maykel Hutchins MD | | | 2018 | on Only | | | | +--------+ + + + + | 05/26/ | Hospital | | See, Medical | Pain | | 2017 | Encounter | | Record | | +--------+ + + + + | 05/26/ | Hospital | | See, Medical | Pain | | 2018 | Encounter | | Record | | +--------+ + + + + | 05/26/ | Hospital | | See, Medical | Pain | | 2018 | Encounter | | Record | | [...] Weight | 53.5 kg (118 lb) | 06/21/2018 8:12 AM PDT | + + + + | Height | 154.9 cm (5' 1") | 06/21/2018 8:12 AM PDT | + + + + | Body Mass Index | 22.3 | 06/21/2018 8:12 AM PDT | + + + + Plan of Treatment +--------+---------+ + + + | Date | Type | Specialty | Care Team | Description | +--------+---------+ + + + | 07/19/ | Office | | Alfredo Casillas DO | | | 2018 | Visit | | [address] [facility] | | | | | | [place] [address] | | | | | | [phone] | | | | | | | [...] | Back | | | 2019 | 22 | | 06/13/2018 by Alfredo Casillas, | [...] + +--------+ + + + | XR HIPS BILATERAL | Routin | 06/21/2018 | Pain of both hip | Results for this | | | e | 8:37 AM | joints | procedure are in the | | [...] | + +--------+ + + + | KYPHOPLASTY | | 06/13/2018 | Closed compression | | | | | 7:15 AM | fracture of fifth | | | | | PDT | lumbar vertebra, | | | | | | initial encounter | | | | | | ([facility]) | | + +--------+ + + + +---+--------+ | | | | | Specia | | | l | | | Needs | | | | | | Stryke | | | rNotif | | | ied | | | 8-9 CR | +---+--------+ + +--------+ +--------+ + | POCT GLUCOSE | Routin | 06/13/2018 | | Results for this | | | e | 6:47 AM | | procedure are in the | | | | PDT | | results section. | + +--------+ +--------+ + | BASIC METABOLIC | Timed | 06/07/2018 | | Results for this | | PANEL | | 3:01 PM | | procedure are in the | | | | PDT | | results section. | + +--------+ +--------+ + | CBC W/AUTO DIFF | Timed | 06/07/2018 | | Results for this | | (REFLEX TO MANUAL) | | 3:01 PM | | procedure are in the | | | | PDT | | results section. | + +--------+ +--------+ + | EKG STANDARD 12 LEAD | Routin | 06/07/2018 | | Results for this | | | e | 2:54 PM | | procedure are in the | | | | PDT | | results section. | + +--------+ +--------+ + | MRI LUMBAR SPINE WO | Routin | 05/09/2018 | Pain | Results for this | | CONTRAST | e | 2:54 AM | | procedure are in the | | | | PDT | | results section. | + +--------+ +--------+ + | MRI LUMBAR SPINE WO | Routin | 04/05/2018 | Pain | Results for this | | CONTRAST | e | 2:55 AM | | procedure are in the | | | | PDT | | results section. | + +--------+ +--------+ + from Last 3 Months Results X-ray hips bilateral (06/21/2018 8:37 AM) + + + | Impressions | Performed At | + + + | FINDINGS/IMPRESSION: 1. No acute hip fracture or dislocation. | [facility] | | Both hip joint spaces are maintained. Osteopenia. 2. Small | RADIOLOGY | | sclerotic lesion in right femoral neck measuring approximately 5 mm, | | | nonspecific, probable bone island. 3. L5 compression fracture, | | | status post vertebroplasty, incompletely evaluated. 4. Lumbar | | | levoscoliosis. Lumbar spondylosis. 5. Mild degenerative changes of | | | both sacroiliac joints. If there is persistent clinical concern | | | for acute hip or pelvic fracture, recommend CT scan or MRI for further | | | evaluation. Electronically signed by Helder Samuel on | | | 06/21/2018 1:36 PM | | + + + + + + | Narrative | Performed At | + + + | [facility] XR HIPS BILATERAL 06/21/2018 8:37 AM | [facility] | | HISTORY: 72 years. Female. Bilateral hip pain. TECHNIQUE: | RADIOLOGY | | XR HIPS BILATERAL. 3 view(s) obtained. COMPARISON: 05/09/2018 | | | | | + + + + + | Procedure Note | + + | Reji Pacheco Results In - 06/21/2018 1:42 PM PDT [facility] HIPS | | BILATERAL06/21/2018 8:37 AMHISTORY:72 years. Female. Bilateral hip pain.TECHNIQUE:XR | | HIPS BILATERAL. 3 view(s) | | obtained.COMPARISON:05/09/2018IMPRESSION:FINDINGS/IMPRESSION:1. No acute hip fracture or | | dislocation. Both hip joint spaces are maintained. Osteopenia.2. Small sclerotic | | lesion in right femoral neck measuring approximately 5 mm, nonspecific, probable bone | | island.3. L5 compression fracture, status post vertebroplasty, incompletely | | evaluated.4. Lumbar levoscoliosis. Lumbar spondylosis.5. Mild degenerative changes of | | both sacroiliac joints.If there is persistent clinical concern for acute hip or pelvic | | fracture, recommend CT scan or MRI for further evaluation. | |05/09/2018 | | | |IMPRESSION: | |FINDINGS/IMPRESSION: | |1. No acute hip fracture or dislocation. Both hip joint spaces are maintained. Osteopenia. | |2. Small sclerotic lesion in right femoral neck measuring approximately 5 mm, nonspecific, probable bone island. | |3. L5 compression fracture, status post vertebroplasty, incompletely evaluated. | |4. Lumbar levoscoliosis. Lumbar spondylosis. | |5. Mild degenerative changes of both sacroiliac joints. | | | |If there is persistent clinical concern for acute hip or pelvic fracture, recommend CT scan or MRI for further evaluation. | | | | | + + + + + + + | Performing | Address | City/State/Zipcode | Phone Number | | Organization | | | | + + + + + | [facility] | [address] | [place] [address] | | + + + + + X-ray C-arm fluoro up to 1 hour [...] At | + + + | [facility] XR C-ARM FLUORO UP TO 1 HOUR [...] | + + + + + | [facility] | [address] | [place] [address] | | + + + + + POCT glucose (06/13/2018 6:47 AM) + + + + + | Component | Value | Ref Range | Performed At | + + + + + | GLUCOSE,POC SCREEN | 70Comment: Testing | 65 - 99 mg/dL | [facility] | | | performed at [facility];[address] | | | | | [address];[place] | | | | | [address] | | | + + + + + + + + + + | Performing | Address | City/State/Zipcode | Phone Number | | Organization | | | | + + + + + | [facility] | [address] | [place] [address] | | + + + + + [...] | [facility] | | | performed at [facility], [address] | | LABORATORY | | | [address], | | | | | [place] [address] | | | + + + + + + + | Specimen | + + | Blood | + + + + + + + | Performing | Address | City/State/Zipcode | Phone Number | | Organization | | | | + + + + + | [facility] | [address] | [place] [address] | [phone] | | LABORATORY | [address] | | [...] 0.7 | 0.50 - 1.00 mg/dL | [facility] | | | | [...] >60Comment: GFR <60: | >60 mL/min/1.73m2 | [facility] | | | CHRONIC KIDNEY DISEASE, | [...] | | | | | performed at [facility], [address] | | | | | [facility], | | | | | [place] [address] | | | + + + + + + + | Specimen | + + | Blood | + + + + + + + | Performing | Address | City/State/Zipcode | Phone Number | | Organization | | | | + + + + + | [facility] | [address] | [place] [address] | [phone] | | LABORATORY | Blvd. | | [...] + + + + | Calculated P [place] | 80 | degrees | [facility] | + + + + + | Calculated R [place] | -9 | degrees | [facility] | + + + + + | Calculated T [place] | 69 | degrees | [facility] | + + + + + | Diagnosis | Normal sinus rhythm with | | [facility] | | | sinus arrhythmiaNormal | | | | | ECGNo significant change | | | | | since previous ECG | | | | | Confirmed by ZACKARY SALGADO, | | | | | SHANICE ([id number]) on 06/08/2018 | | | | | 1:02:50 PM | | | + + + + + + + + + + | Performing | Address | City/State/Zipcode | Phone Number | | Organization | | | | + + + + + | [facility] | [address] | [place] [address] | | + + + + + [...] | + + + + + | [facility] | [address] | [place] [address] | | + + + + + [...] +------+-------+ + | MEDICARE | MEDICA | [id number] | | | [address] | | | RE | | | | [place] [address] | | | IP-OP | | | | | + +--------+ +------+-------+ + | COMMERCIAL OTHER | COMMER | [id number] | | | | | | CIAL [...] | | | jose | | | [address] | [place] [address] | + +--------+ +--------+ + +
--- OUTSIDE RECORDS SUMMARY | ~2018-07-05 | XMS | Encounter Summary ---
Demographics + + + | Address | [address] | | | [place] [address] | + + + | Home Phone | | + + + | Preferred Language | Unknown | + + + | Marital Status | | + + + | Catholic Affiliation | 1013 | + + + | Race | Unknown | + + + | Ethnic Group | Unknown | + + + Author + + + | Author | [facility] | + + + | Organization | [facility] | + + + | Address | [...] Team Providers + +------+ + | Care Proof Inspector Name | Role | Phone | [...] + + | 06/07/ | Telephone | [facility] | Jennifer Hicks, COMB CAPPER | Other (questions ) | | 2017 | | [facility] | | | | | | MEDIC[facility] | | | | | | [address] | | | | | | [place] | | | | | | [address] | | | | | | [phone] | | | +--------+ + + + [...] | 2017 | Visit | | [address] [facility] [address] | | | | | | [place] [address] | | | | | | [phone] | | | | | | | | +--------+---------+ + + + as of this encounter Visit Diagnoses Not on filein this encounter"
--- OUTSIDE RECORDS SUMMARY | ~2018-07-05 | XMS | Encounter Summary ---
Demographics + + + | Address | [address] | | | [place] [address] | + + + | Home Phone | | + + + | Preferred Language | Unknown | + + + | Marital Status | | + + + | Restoration Affiliation | 1041 | + + + [...] | NA | | | | | [place], [place] | | + + + + + Care Team Providers + +------+ + | Care Business Case Analyst Name | Role | Phone | + +------+ + | Wendi Aiken | PCP | | + +------+ + Reason for Referral Evaluate & Treat (Routine) + + + + + + + | Status | Reason | Specialty | Diagnoses / | Referred By | Referred To | | | | | Procedures | Contact | Contact | + + + + + + + | Authorized | Specialty | Physical | Diagnoses | Juan, | [facility] | | | Services | Therapy | Closed | [facility] | | | Required | | compression | [address] | PHYSICAL | | | | | fracture of | [address] | THERAPY [address] | | | | | fifth lumbar | [address] | [place] | | | | | vertebra, | [place], | [place], [place] | | | | | sequela | [place] [id number] | [address] | | | | | Lumbar | Phone: | Phone: | | | | | radiculopath | [phone] | [phone] | | | | | y | Fax: | Fax: | | | | | Procedures | [phone] | [phone] | | | | | HIM 04/17/18 | | | + + + + + + + Encounter Details +--------+ + + + + | Date | Type | Department | Care Team | Description | +--------+ + + + + | 04/12/ | Orders Only | [facility] | Nick Martinez, | Closed compression | | 2017 | | PHYSIATRY [address] | PA-C [address] | fracture of fifth | | | | [place] [address] [place], | [address] [place] | lumbar vertebra, | | | | [place] [id number] | [place] [id number] | sequela (Primary | | | | [phone] | [phone] | Dx); Lumbar | | | | | | radiculopathy | +--------+ + + + + Social [...] of this encounter Plan of Treatment + +--------+ + + | Name | Priori | Associated Diagnoses | Order Schedule | | | ty | | | + +--------+ + + | AMB REFERRAL TO [facility]ICAL | Routin | Closed Compression | Ordered: 04/12/2018 | | THERAPY | e | Fracture Of Fifth | | | | | Lumbar Vertebra, | | | | | Sequela Lumbar | | | | | radiculopathy | | + +--------+ + + as of this encounter Visit Diagnoses + + | Diagnosis | + + | Closed compression fracture of fifth lumbar vertebra, sequela - Primary | + + | Lumbar radiculopathy | + + | Thoracic or lumbosacral neuritis or radiculitis, unspecified | + +"
--- OUTSIDE RECORDS SUMMARY | ~2018-07-05 | XMS | Encounter Summary ---
Demographics + + + | Address | [address] | | | [place] [address] | + + + | Home Phone | | + + + | Preferred Language | Unknown | + + + | Marital Status | | + + + | Confucianism Affiliation | 1013 | + + + | Race | Unknown | + + + | Ethnic Group | Unknown | + + + Author + + + | Author | [employer] | + + + | Organization | [facility] | + + + | Address | [...] Providers + +------+ + | Care Manager Benefit Name | Role | Phone | + [...] + + | 06/13/ | Hospital | [facility] | Alfredo Casillas, | Closed compression | | 2018 | Encounter | Medical Center | [address] | fracture of fifth | | | | Clinical Decision | [place] [address] | lumbar vertebra, | | | | [address] | [phone] | initial encounter | | | | [place] [address] | | ([facility]) | | | | [phone] | | | +--------+ + + + [...] AM PDT | + + + + in this encounter Discharge Instructions Kiya Dietrich RN - 06/13/2018Formatting of this note may be different from the origina l. After Your Surgery You ve just had surgery. During surgery, you received medication called anesthesia to ninoska p you comfortable and pain-free. After surgery, you may experience some pain or nausea. This is common. Going Home Have an adult family member or friend drive you home. For the first 24 hours after your stephanie karuna: ? Do not drive or use heavy equipment. ? Do not make important decisions or sign legal documents. ? Avoid alcohol. ? Have someone stay with you, if needed. He or she can watch for problems and help keep you safe. Be sure to keep all follow-up appointments with your doctor. And rest after your procedure for as long as your doctor tells you to. Coping with Pain If you have pain after surgery, pain medication will help you feel better. Take your medica tion as directed, before pain becomes severe. Consider other ways to control pain, such as with heat, ice, and relaxation. To get the best relief possible, remember these points: ? Pain medications can upset your stomach. Taking them with a little food may help. ? Most pain relievers taken by mouth need at least 20 to 30 minutes to take effect. ? Taking medication on a schedule can help you remember to take it. Try to time your medica tion so that you can take it before beginning an activity, such as dressing, walking, or sit ting down for dinner. ? Don t drink alcohol while taking pain medication. ? Don t drive or operate machinery while taking pain medications as they can slow your re flexes. If your health care provider tells you to take acetaminophen or ibuprofen to help relieve y our pain, ask him or her how much you are supposed to take each day. Constipation ? Constipation is a common side effect of pain medications and anesthetics. Contact your do ctor before taking any medications like laxatives or stool softeners to help relieve constip ation, unless they have been prescribed for you. ? Drinking lots of non-alcoholic fluids and eating foods like fruits and vegetables that ar e high in fiber can also help. Managing Nausea Some people have an upset stomach after surgery. This is often due to anesthesia, pain, yessica n medications, or the stress of surgery. If you were on a special diet before surgery, ask your doctor if you should follow it during recovery. These tips may help: ? Don t push yourself to eat. Your body will tell you when to eat and how much. ? Start off with clear liquids and soup. They are easier to digest. Slowly move to solid f oods. Don t eat fatty, rich, or spicy foods at first. ? Don t force yourself to have three large meals a day. Instead, eat smaller amounts more often. Blood Clot Prevention Deep vein thrombosis (DVT) is a clot that forms in your deep veins usually in the leg o r thigh. A pulmonary embolism (PE) occurs when a clot in the bloodstream travels through th e heart and into the lungs. If the clot becomes stuck in a blood vessel in the lungs, blood flow can be blocked which causes life-threatening heart and lung problems. The following are prevention tips: ? Elevate your legs whenever they feel swollen or heavy ? Maintain a healthy weight ? Quit smoking ? Avoid sitting, standing, or lying down for long periods without moving your legs and feet . o When traveling by car, make frequent stops to get out and move around. o On long airplane, train, or bus rides, get up and move around when possible. o If you can t get up, wiggle your toes and tighten your calves to keep your blood moving . If you have any of these symptoms of DVT or PE, call your doctor: ? Swelling, pain, or both, often in one limb ? Redness or warmth, often in one limb ? Sudden, continuous pain deep in your muscle ? Worsening ache when you are active or when you stand still for a long time ? Rapid, pounding, or unusual heartbeat ? Sweating more than usual. ? Chest pain, trouble breathing, coughing up blood, skin turning blue, or fainting Call 911. Discharge Instructions for Kyphoplasty Fractures in the bones of the spine (vertebrae) can cause severe back pain and loss of move ment. You had a procedure called kyphoplasty to cement the fractures in your spine, restore the height of the vertebrae, and help relieve pain. Using image-guided X-rays, your doctor m helder 1 or 2 small cuts (incisions) in your back for each vertebra treated.The doctor put a balloon on each side of the broken vertebra and inflated the balloons until they expanded th e right amount. Then the balloons were removed. The spaces created by the balloons were fill ed with orthopedic cement. This gave strength and stability to your vertebra. The following are instructions to help you care for your back when you are at home. Home care Take your medicine exactly as directed. Remove the small bandages on your lwikebgv40 to 48hours after the surgery. Don t shower or soak in a bathtub for1 to 2days after the surgery. Use an ice packor bag of frozen peas or something similar wrapped in a thin towel to reduce the swelling and pain around incision sites. Put the ice pack on the area for20 minutes,then remove it [id number]. Repeat as needed. Wear your brace, if you were told to do so by your doctor. And to help stay flexible, be nd as much as the brace allows you to. For the first1 to 2days after the surgery, keep your head raised up when you are lyi ng down. Take short walks. Start by walking [id number] at a time. Then gradually build up yo ur time and distance. Don t drive [id number] after surgery. And never drive while taking opioid pain medic ine. Ask your healthcare provider when you can begin lifting objects again. Ask him or her ab out any weight limits for lifting. Follow-up Make a follow-up appointment as directed by your doctor. Call 911 Call 911 right awayif you have any of the following: Chest pain Shortness of breath When to call your healthcare provider Call your healthcare provider right away if you have any of the following: Increased redness, swelling, drainage, or warmth around the incision sites Severe pain at the incision site Weakness, numbness, or tingling in your legs Fever of100.4F (38C) or higher, or as directed byyour healthcare provider Shaking chills Date Last Reviewed: 09/15/201519990075-9902 [employer] [address] [place] [address]. All righ ts reserved. This information is [...] +-------+---------+ + + as of this encounter Progress Notes Kiya Dietrich RN - 06/13/2018 10:04 AM PDTReport given to nurse narayan in CDU, talked with DR. Casillas to get a verbal order for a diet and pain medication for stay in CDU.in thi s encounter Plan of Treatment +--------+---------+ + + + | Date | Type | Specialty | Care Team | Description | +--------+---------+ + + + | 07/19/ | Office | Dolorology | Alfredo Casillas DO | | | 2017 | Visit | | [address] [facility] | | | | | | [place] [address] | | | | | | [phone] | | | | | | | [...] | | | | (HCC) | | + +--------+ + + + +---+--------+ | | | | | Specia | | | l | | | Needs | | | | | | Stryke | | | rNotif | | | ied | | | 8-9 CR | +---+--------+ + +--------+ +---+ + | POCT GLUCOSE | Routin | 06/13/2018 | | Results for this | | | e | 6:47 AM | | procedure are in the | | | | PDT | | results section. | + +--------+ +---+ + in this encounter Results X-ray C-arm fluoro up to 1 [...] At | + + + | [facility] XR C-ARM FLUORO UP TO 1 HOUR HISTORY: | [facility] | | 72 years. Female. Kyphoplasty. TECHNIQUE: 2 spot fluoroscopic | RADIOLOGY | | images of the lumbar spine. 333 seconds of fluoroscopy time is | | | utilized. | | + + + + + | Procedure Note | + + | Reji Pacheco Results In 06/13/2018 9:40 AM TRES SCALESFAWTHROPMOHINI C-ARM | | FLUORO UP TO 1 [...] + + + + + | MAYTE LOAIZA | [address] | [facility] [address] | | + + + + + POCT glucose (06/13/2018 6:47 AM) + + + + + | Component | Value | Ref Range | Performed At | + + + + + | GLUCOSE,POC SCREEN | 70Comment: Testing | 65 - 99 mg/dL | [facility] | | | performed at [facility];[address] | | | | | [address];[place] | | | | | [address] | | | + + + + + + + + + + | Performing | Address | City/State/Zipcode | Phone Number | | Organization | | | | + + + + + | [facility] | [address] | [place] [address] | | + + + + + in this encounter Visit Diagnoses + + | Diagnosis | + + | Closed compression fracture of fifth lumbar vertebra, initial encounter (HCC) | + + Admitting Diagnoses + + | Diagnosis | + + | Closed compression fracture of fifth lumbar vertebra, initial encounter (HCC) | + + Administered Medications + +--------+ +--------+------+------+ | Medication Order | MAR | Action | Dose | Rate | Site | | | Action | Date | | | | + +--------+ +--------+------+------+ | fentaNYL (SUBLIMAZE) injection | Given | | 25 mcg | | | | 25 mcg 25 mcg, Intravenous, | | 8 10:20 | | | | | Every 1 Hour PRN, every 30min | | PDT | | | | | maxium dose of 100mg, Starting | | | | | | | 06/13/18 at 1001 | | | | | | + +--------+ +--------+------+------+ +-------+ +--------+---+---+ | Given | | 25 mcg | | | | | 8 14:02 | | | | | | PDT | | | | +-------+ +--------+---+---+ +---+---+ | | | +---+---+ + +-------+ +---------+---+---+ | HYDROcodone-acetaminophen | Given | | 2 | | | | (NORCO) 5-325 MG per tablet 2 | | 8 08:41 | tablets | | | | tablet 2 tablet, Oral, Once, Tue | | PDT | | | | | 06/13/18 at 0900, For 1 dose | | | | | | + +-------+ +---------+---+---+ +---+---+ | | | +---+---+ + +-------+ +-------+---+---+ | HYDROmorphone (DILAUDID) | Given | | 25 mg | | | | injection 0.25 mg 0.25 mg, | | 8 08:47 | | | | | Intravenous, Every 5 Min PRN, | | PDT | | | | | Pain, Option Two for pain scale | | | | | | | 1-02/07.If no relief, proceed to | | | | | | | option 3., Starting Tue06/13/18 | | | | | | | at 0833, PACU | | | | | | + +-------+ +-------+---+---+ +-------+ +-------+---+---+ | Given | | 25 mg | | | | | 8 08:54 | | | | | | PDT | | | | +-------+ +-------+---+---+ +---+---+ | | | +---+---+ + +-------+ +--------+---+---+ | HYDROmorphone (DILAUDID) | Given | | 0.5 mg | | | | injection 0.5 mg 0.5 mg, | | 8 09:03 | | | | | Intravenous, Every 5 Min PRN, | | PDT | | | | | Pain, Option Two for pain scale | | | | | | | 5-10. If no relief, proceed to | | | | | | | option 3., Starting Tue06/13/18 | | | | | | | at 0833, [facility] | | | | | | + +-------+ +--------+---+---+ +---+---+ | | | +---+---+ + +-------+ +-------+---+---+ | meperidine (DEMEROL) injection | Given | | 25 mg | | | | 25 mg 25 mg, Intravenous, Every | | 8 09:10 | | | | | 15 Min PRN, shivering, Starting | | PDT | | | | | 06/13/18 at 0833, For 2 doses, | | | | | | | PACU | | | | | | + +-------+ +-------+---+---+ + +---+ | | | + +---+ | ondansetron (ZOFRAN) injection | | | 4 mg 4 mg, Intravenous, Every 6 | | | Hours PRN, Nausea, Vomiting, | | | Starting Tue06/13/18 at 0823, For | | | 365 days | | + +---+ | | | + +---+ | ondansetron (ZOFRAN-ODT) | | | disintegrating tablet 4 mg 4 mg, | | | Oral, Every 6 Hours PRN, Nausea, | | | Vomiting, Starting Tue06/13/18 | | | at 0823, For 365 days | | + +---+ | | | + +---+ in this encounter
--- OUTSIDE RECORDS SUMMARY | ~2018-07-05 | XMS | Encounter Summary ---
Demographics + + + | Address | [address] | | | [place] [address] | + + + | Home Phone | | + + + | Preferred Language | Unknown | + + + | Marital Status | | + + + | Anabaptism Affiliation | 1041 | + + + | Race | Unknown | + + + | Ethnic Group | Unknown | + + + Author + + + | Author | [facility] | | | and Priteshana | + + + | Organization | [facility] [...] Team Providers + +------+ + | Care Head Athletic Trainer Name | Role | Phone | + +------+ + | Wendi Aiken | PCP | | + +------+ + Encounter Details +--------+ + + + + | Date | Type | Department | Care Team | Description | +--------+ + + + + | 05/09/ | Imaging | [facility] | Provider, | | | 2018 | Exam | [facility] | [address] | | | | | IMAGING | [address] | | | | | [phone] | [place] [address] | | +--------+ + + + + [...] this | | CONTRAST | e | 1125 PDT | | procedure are in the [...]
--- OUTSIDE RECORDS SUMMARY | ~2018-07-05 | XMS | Encounter Summary ---
Demographics + + + | Address | [address] | | | [place] [address] | + + + | Home Phone | | + + + | Preferred Language | Unknown | + + + | Marital Status | | + + + | Presybeterian Affiliation | 1013 | + + + | Race | Unknown | + + + | Ethnic Group | Unknown | + + + Author + + + | Author | [employer] | + + + | Organization | [facility] [employer] | + + + | Address | [...] Team Providers + +------+ + | Care Mortgage Protection Sales Name | Role | Phone | + [...] + + | 07/27/ | Hospital | [facility] | See, Medical | Pain | | 2018 | Encounter | [facility] | Record | | | | | RADIOLOGY [address] | | | | | | [address] | | | | | | [place] [address] | | | | | | [phone] | | | +--------+ + + + [...] | 2018 | Visit | | [address] [facility] | | | | | | [place] [address] | | | | | | [phone] | | | | | | | | +--------+---------+ + + + as of this encounter Procedures + +--------+ + + + | Procedure Name | Priori | Date/Time | Associated Diagnosis | Comments | | | ty | | | | + +--------+ + + + | CT LUMBAR SPINE WO | Routin | 05/25/2014 | Pain | Results for this | | CONTRAST | e | 2:55 AM | | procedure are in the | | | | PDT | | results section. | + +--------+ + + + in this encounter Results CT lumbar spine without [...] [facility] | [address] | [place] [address] | | + + + + + in this encounter Visit Diagnoses + + | Diagnosis | + + | Pain | + + | Generalized pain | + +"
--- OUTSIDE RECORDS SUMMARY | ~2018-07-05 | XMS | Encounter Summary ---
Demographics + + + | Address | [address] | | | [place] [address] | + + + | Home Phone | | + + + | Preferred Language | Unknown | + + + | Marital Status | | + + + | Voodoo Affiliation | 1013 | + + + | Race | Unknown | + + + | Ethnic Group | Unknown | + + + Author + + + | Author | [facility] | + + + | Organization | [facility] | + + + | Address | [...] Team Providers + +------+ + | Care Woodwind Instruments Inspector Name | Role | Phone | + +------+ + | Wendi Aiken PA-C | PCP | | + +------+ + Encounter Details +--------+ + + + + | Date | Type | Department | Care Team | Description | +--------+ + + + + | 06/13/ | Orders Only | [facility] | Jennifer Hicks, DISTRICT CUSTOMS DIRECTOR | | | 2017 | | ORTHO SPORTS | | | | | | MEDICINE RADHA | | | | | | [address] | | | | | | [place] | | | | | | [address] | | | | | | [phone] | | | +--------+ + + + [...] | | | | | [place] [address] | | | | | | [phone] | | | | | | | | +--------+---------+ + + + as of this encounter Visit Diagnoses Not on filein this encounter"
--- OUTSIDE RECORDS SUMMARY | ~2018-07-05 | XMS | Encounter Summary ---
Demographics + + + | Address | [address] | | | [place] [address] | + + + | Home Phone | | + + + | Preferred Language | Unknown | + + + | Marital Status | | + + + | Spiritism Affiliation | 1041 | + + + [...] Team Providers + +------+ + | Care Requirements Engineer Name | Role | Phone | [...] + | 04/17/ | Telephone | [facility] | Nick Martinez, | Yehuda (Back Brace) | | 2017 | | PHYSIATRY [address] | PA-C [address] | | | | | [place], | [address] [place] | | | | | [place] [address] | [place] [address] | | | | | [phone] | [phone] | | | | | | | [...]
--- OUTSIDE RECORDS SUMMARY | ~2018-07-05 | XMS | Encounter Summary ---
Demographics + + + | Address | [address] | | | [place] [address] | + + + | Home Phone | | + + + | Preferred Language | Unknown | + + + | Marital Status | | + + + | Sikhism Affiliation | 1013 | + + + | Race | Unknown | + + + | Ethnic Group | Unknown | + + + Author + + + | Author | [facility] [facility] | + + + | Organization | [facility] | + + + | Address | [...] Team Providers + +------+ + | Care Compliance Representative Name | Role | Phone | [...] (Request to | | 2017 | | [facility] | [place] | speak to [place]) | | | | [address] | | | | | | [place] | | | | | | [address] | | | | | | [phone] | | | +--------+ + + + [...] | 2017 | Visit | | [address] [facility] | | | | | | [place] [address] | | | | | | [phone] | | | | | | | | +--------+---------+ + + + as of this encounter Visit Diagnoses Not on filein this encounter"
--- OUTSIDE RECORDS SUMMARY | ~2018-07-05 | XMS | Encounter Summary ---
Demographics + + + | Address | [address] | | | [place] [address] | + + + | Home Phone | | + + + | Preferred Language | Unknown | + + + | Marital Status | | + + + | Mormon Affiliation | 1013 | + + + | Race | Unknown | + + + | Ethnic Group | Unknown | + + + Author + + + | Author | [employer] [facility] | + + + | Organization | [facility] | + + + | Address | [...] Team Providers + +------+ + | Care Wiping Rag Washer Name | Role | Phone | + [...] | KYPHOPLASTY | | 2018 | | [facility] | [address] | | | | | Operating Room [address] | [place] [address] | | | | | [address] | [phone] | | | | | [place] [address] | | | | | | [phone] | | | +--------+---------+ + + + [...] directed. Remove the small bandages on your sebxsrtr89 to 48hours after the surgery. Don t shower or soak in a bathtub for1 to 2days after the surgery. Use an ice packor bag of frozen peas or something similar wrapped in a thin towel to reduce the swelling and pain around incision sites. Put the ice pack on the area for20 minutes,then remove it [id number]. Repeat as needed. Wear your brace, if you were told to do so by your doctor. And to help stay flexible, be nd as much as the brace allows you to. For the first1 to 2days after the surgery, keep your head raised up when you are lyi ng down. Take short walks. Start by walking [id number] at a time. Then gradually build up yo ur time and distance. Don t drive uqz8yats after surgery. And never drive while taking [...] healthcare provider Shaking chills Date Last Reviewed: 09/15/201519990334-[address] [email or web address] [place], [place] [address]. All righ ts reserved. This information is [...] | 2017 | Visit | | [address] [facility] | | | | | | [place] [address] | | | | | | [phone] | | | | | | | [...] [facility] | [address] | [facility] [address] | | + + + + + POCT glucose (06/13/2018 6:47 AM) + + + + + | Component | Value | Ref Range | Performed At | + + + + + | GLUCOSE,POC SCREEN | 70Comment: Testing | 65 - 99 mg/dL | [facility] | | | performed at [facility];[address] | | | | | [address];[place] | | | | | [address] | | | + + + + + + + + + + | Performing | Address | City/State/Zipcode | Phone Number | | Organization | | | | + + + + + | [facility] | [address] | [place] [address] | | + + + + + [...] mLs | | Back | | 0.5% -1:791038 30 mL in lidocaine | | 8 [...] | | | | | [facility] 08[facility], [facility] | | | | | | + [...]
--- OUTSIDE RECORDS SUMMARY | ~2018-07-05 | XMS | Encounter Summary ---
Demographics + + + | Address | [address] | | | [place] [address] | + + + | Home Phone | | + + + | Preferred Language | Unknown | + + + | Marital Status | | + + + | Hindu Affiliation | 1013 | + + + | Race | Unknown | + + + | Ethnic Group | Unknown | + + + Author + + + | Author | [email or web address] | + + + | Organization | [email or web address] | + + + | Address | [...] Providers + +------+ + | Care Jet Piercer Operator Name | Role | Phone | + +------+ + | Oxana Nye NP | PCP | | + +------+ + Encounter Details +--------+ + + + + | Date | Type | Department | Care Team | Description | +--------+ + + + + | 05/31/ | Documentati | [facility] | Maykel Hutchins MD | | | 2018 | on Only | [facility] | [address] | | | | | [address] | [place] [address] | | | | | [address] [place], [place] | [phone] | | | | | [address] | | | | | | [phone] | | | +--------+ + + + [...] | 2017 | Visit | | [facility] | | | | | | [facility] [address] | | | | | | [phone] | | | | | | | | +--------+---------+ + + + as of this encounter Visit Diagnoses Not on filein this encounter"
--- OUTSIDE RECORDS SUMMARY | ~2018-07-05 | XMS | Encounter Summary ---
Demographics + + + | Address | [address] | | | [place] [address] | + + + | Home Phone | | + + + | Preferred Language | Unknown | + + + | Marital Status | | + + + | Hindu Affiliation | 1041 | + + + [...] Team Providers + +------+ + | Care Steeping Press Tender Name | Role | Phone | [...] + + | 04/10/ | Telephone | [facility] | Nick Martinez, | Medication Prior | | 2017 | | PHYSIATRY [address] | PA-C [address] | Authorization | | | | [place], | [address] [place] | (Lidocaine Patch ) | | | | [place] [address] | [place] [address] | | | | | [phone] | [phone] | | | | | | | [...]
--- OUTSIDE RECORDS SUMMARY | ~2018-07-05 | XMS | Encounter Summary ---
Demographics + + + | Address | [address] | | | [place] [address] | + + + | Home Phone | | + + + | Preferred Language | Unknown | + + + | Marital Status | | + + + | Synagogue Affiliation | 1013 | + + + | Race | Unknown | + + + | Ethnic Group | Unknown | + + + Author + + + | Author | [employer] | + + + | Organization | [facility] | + + + | Address | [...] Providers + +------+ + | Care Metal Mover Name | Role | Phone | + +------+ + | Oxana Nye NP | PCP | | + +------+ + Encounter Details +--------+ + + + + | Date | Type | Department | Care Team | Description | +--------+ + + + + | 04/05/ | Documentati | [facility] | Modesto Medel | | | 2018 | on Only | [facility] | MD [address] | | | | | [address] | [employer] | | | | | [address] [place], [place] | [place] [address] | | | | | [address] | [phone] | | | | | [phone] | | | +--------+ + + + [...] [address] | | | | | | [place] [address] | | | | | | [phone] | | | | | | | | +--------+---------+ + + + as of this encounter Visit Diagnoses Not on filein this encounter"
--- OUTSIDE RECORDS SUMMARY | ~2018-07-05 | XMS | Encounter Summary ---
Demographics + + + | Address | [address] | | | [place] [address] | + + + | Home Phone | | + + + | Preferred Language | Unknown | + + + | Marital Status | | + + + | Buddhist Affiliation | 1013 | + + + | Race | Unknown | + + + | Ethnic Group | Unknown | + + + Author + + + | Author | [facility] | + + + | Organization | [facility] | + + + | Address | [...] Team Providers + +------+ + | Care Mechanics Handyman Name | Role | Phone | + +------+ + | Wendi Aiken PA-C | PCP | | + +------+ + Encounter Details +--------+ + + + + | Date | Type | Department | Care Team | Description | +--------+ + + + + | 06/12/ | Orders Only | [facility] | Alfredo Casillas DO | | | 2017 | | [facility] | [address] | | | | | PAIN [address] | [place] [address] | | | | | Blvd [place], [place] | [phone] | | | | | [address] | [...] [address] | | | | | | [place] [address] | | | | | | [phone] | | | | | | | | +--------+---------+ + + + as of this encounter Visit Diagnoses Not on filein this encounter"
--- OUTSIDE RECORDS SUMMARY | ~2018-07-05 | XMS | Encounter Summary ---
Demographics + + + | Address | [address] | | | [place] [address] | + + + | Home Phone [...] Providers + +------+ + | Care Glass Bulb Machine Adjuster Name | Role | Phone [...] + + | 04/10/ | Telephone | [facility] | Nick Martinez, | Medication Follow-up | | 2017 | | PHYSIATRY [address] | PA-C [address] | | | | | [place], | [address] [place] | | | | | [place] [address] | [place] [address] | | | | | [phone] | [phone] | | | | | | | [...]
--- OUTSIDE RECORDS SUMMARY | ~2018-07-05 | XMS | Encounter Summary ---
Demographics + + + | Address | [address] | | | [place] [address] | + + + | Home Phone | | + + + | Preferred Language | Unknown | + + + | Marital Status | | + + + | Gnosticist Affiliation | 1013 | + + + | Race | Unknown | + + + | Ethnic Group | Unknown | + + + Author + + + | Author | [facility] [facility] | + + + | Organization | [facility] | + + + | Address [...] Team Providers + +------+ + | Care Pathology Technologist Name | Role | Phone | + +------+ + | Wendi Aiken PA-C | PCP | | + +------+ + Encounter Details +--------+ + + + + | Date | Type | Department | Care Team | Description | +--------+ + + + + | 06/07/ | Hospital | [facility] | Alfredo Casillas DO | | | 2018 | Encounter | [facility] | [address] [facility] | | | | | Preadmission | [place] [address] | | | | | Services [address] | [phone] | | | | | Blvd [place], [place] | | | | | | [...] about all medicines you take. This includes [id number] medicines, herbs, vitamins, and other supplements. Ask your healthcare provider if there are medicines you must stop taking before the proc edure. Do not eat or drink anything for at [id number] before the procedure. Arrange for an adult [...] or unrelieved back pain Date Last Reviewed: 04/30/201619998080-7402 [employer]. [address] [place] [address], [place] [address]. All righ ts reserved. This information is [...] | Visit | | [address] [facility] | | | | | | [place] [address] | | | | | | [phone] | | | | | | | [...] the | | | | | MDRD IDNE traceable | | | | | equation.Testing | | | | | performed at [facility], [address] | | | | | [facility], | | | | | [place] [address] | | | + + + + + + + | Specimen | + + | Blood | + + + + + + + | Performing | Address | City/State/Zipcode | Phone Number | | Organization | | | | + + + + + | [facility] | [address] | [place] [address] | [phone] | | LABORATORY | Blvd. | | [...] | [facility] | | | performed at [facility], [address] | | LABORATORY | | | [facility], | | | | | [place] [address] | | | + + + + + + + | Specimen | + + | Blood | + + + + + + + | Performing | Address | City/State/Zipcode | Phone Number | | Organization | | | | + + + + + | [facility] | [address] [place] [address] | [place] [address] | [phone] | | LABORATORY | Blvd. | | [...] + + + + | Calculated P [place] | 80 | degrees | [facility] | + + + + + | Calculated R [place] | -9 | degrees | [facility] | + + + + + | Calculated T [place] | 69 | degrees | [facility] [...] + + + + | [facility] | [address] | [facility] [place] [address] | | + + + + + in this encounter Visit Diagnoses Not on filein this encounter
--- OUTSIDE RECORDS SUMMARY | ~2018-07-05 | XMS | Encounter Summary ---
Demographics + + + | Address | [address] | | | [place] [address] | + + + | Home Phone | | + + + | Preferred Language | Unknown | + + + | Marital Status | | + + + | Yazdanism Affiliation | 1013 | + + + | Race | Unknown | + + + | Ethnic Group | Unknown | + + + Author + + + | Author | [employer] | + + + | Organization | [facility] [employer] | + + + | Address | [...] Providers + +------+ + | Care Emergency Management Specialist Name | Role | Phone | + +------+ + | Wendi Aiken PA-C | PCP | | + +------+ + Encounter Details +--------+ + + + + | Date | Type | Department | Care Team | Description | +--------+ + + + + | 05/26/ | Procedure | [facility] | | | | 2018 | Pass | [facility] | | | | | | RADIOLOGY [address] | [address] | | | | | | [place] [address] | | | | | | [phone] | | | +--------+ + + + [...] | | | | | [place] [address] | | | | | | [phone] | | | | | | | | +--------+---------+ + + + as of this encounter Visit Diagnoses Not on filein this encounter"
--- OUTSIDE RECORDS SUMMARY | ~2018-07-05 | XMS | Encounter Summary ---
Demographics + + + | Address | [address] | | | [place] [address] | + + + | Home Phone | | + + + | Preferred Language | Unknown | + + + | Marital Status | | + + + | Yazidism Affiliation | 1013 | + + + | Race | Unknown | + + + | Ethnic Group | Unknown | + + + Author + + + | Author | [facility] | + + + | Organization | [facility] | + + + | Address | [...] Team Providers + +------+ + | Care Price Lister Name | Role | Phone | + +------+ + | Wendi Aiken PA-C | PCP | | + +------+ + Encounter Details +--------+ + + + + | Date | Type | Department | Care Team | Description | +--------+ + + + + | 06/13/ | Procedure | [facility] | | | | 2018 | [facility] | | | | | | Operating Room [address] | | | | | | [facility] | | | | | | [place] [address] | | | | | | [phone] | | | +--------+ + + + [...] | | | | | [place] [address] | | | | | | [phone] | | | | | | | | +--------+---------+ + + + as of this encounter Visit Diagnoses Not on filein this encounter"
--- OUTSIDE RECORDS SUMMARY | ~2018-07-05 | XMS | Encounter Summary ---
Demographics + + + | Address | [address] | | | [place] [address] | + + + | Home Phone | | + + + | Preferred Language | Unknown | + + + | Marital Status | | + + + | Uatsdin Affiliation | 1013 | + + + | Race | Unknown | + + + | Ethnic Group | Unknown | + + + Author + + + | Author | [facility] | + + + | Organization | [facility] | + + + | Address | [...] Team Providers + +------+ + | Care Sugar Controller Name | Role | Phone | + +------+ + | Wendi Aiken PA-C | PCP | | + +------+ + Encounter Details +--------+ + + + + | Date | Type | Department | Care Team | Description | +--------+ + + + + | 05/26/ | Procedure | [facility] | | | | 2018 | Pass | [facility] | | | | | | RADIOLOGY [address] | [address] | | | | | | [place] [address] | | | | | | [phone] | | | +--------+ + + + [...] | | | | | [place] [address] | | | | | | [phone] | | | | | | | | +--------+---------+ + + + as of this encounter Visit Diagnoses Not on filein this encounter"
--- OUTSIDE RECORDS SUMMARY | ~2018-07-05 | XMS | Encounter Summary ---
Demographics + + + | Address | [address] | | | [place] [address] | + + + | Home Phone [...] Providers + +------+ + | Care Cat Breeder Name | Role | Phone | + +------+ + | Wendi Aiken | PCP | | + +------+ + Encounter Details +--------+ + + + + | Date | Type | Department | Care Team | Description | +--------+ + + + + | 04/06/ | Procedure | [facility] | | | | 2018 | Pass | [facility] | | | | | | IMAGING | | | | | | [phone] | | | +--------+ + + + [...]
--- OUTSIDE RECORDS SUMMARY | ~2018-07-05 | XMS | Encounter Summary ---
Demographics + + + | Address | [address] | | | [place] [address] | + + + | Home Phone [...] Team Providers + +------+ + | Care Craniologist Name | Role | Phone | + [...] [address] | | | | | [phone] | [place] [address] | | +--------+ + + + + [...] encounter Results MRI Brain wo Contrast (02/25/2018 8550) + + + | Narrative | Performed [...]
--- OUTSIDE RECORDS SUMMARY | ~2018-07-05 | XMS | Encounter Summary ---
Demographics + + + | Address | [address] | | | [place] [address] | + + + | Home Phone | | + + + | Preferred Language | Unknown | + + + | Marital Status | | + + + | Caodaism Affiliation | 1013 | + + + | Race | Unknown | + + + | Ethnic Group | Unknown | + + + Author + + + | Author | [facility] | + + + | Organization | [facility] | + + + | Address | [...] Providers + +------+ + | Care Optometric Tech Name | Role | Phone | + +------+ + | Wendi Aiken PA-C | PCP | | + +------+ + Encounter Details +--------+ + + + + | Date | Type | Department | Care Team | Description | +--------+ + + + + | 07/04/ | Telephone | [facility] | Jennifer Hicks CMA | | | 2017 | | [facility] | | | | | | MEDICINE [place] | | | | | | PAIN [address] | | | | | | [place] | | | | | | [address] | | | | | | [phone] | | | +--------+ + + + [...] | | | | | [place] [address] | | | | | | [phone] | | | | | | | | +--------+---------+ + + + as of this encounter Visit Diagnoses Not on filein this encounter"
--- OUTSIDE RECORDS SUMMARY | ~2018-07-05 | XMS | Encounter Summary ---
Demographics + + + | Address | [address] | | | [place] [address] | + + + | Home Phone | | + + + | Preferred Language | Unknown | + + + | Marital Status | | + + + | Yarsanism Affiliation | 1041 | + + + [...] Team Providers + +------+ + | Care Rectification Printer Name | Role | Phone | [...] [address] | | | | | [place], | [facility], [place] | | | | | [place] [address] | [address] | | | | | [phone] | | | +--------+ + + + [...]
--- OUTSIDE RECORDS SUMMARY | ~2018-07-05 | XMS | Encounter Summary ---
Demographics + + + | Address | [address] | | | [place] [address] | + + + | Home Phone | | + + + | Preferred Language | Unknown | + + + | Marital Status | | + + + | Judaism Affiliation | 1013 | + + + | Race | Unknown | + + + | Ethnic Group | Unknown | + + + Author + + + | Author | [facility] [employer] | + + + | Organization | [facility] | + + + | Address [...] Providers + +------+ + | Care Locker Room Attendant Name | Role | Phone | [...] + + | 05/26/ | Ancillary | [facility] | See, Medical | Pain | | 2018 | [facility] | [facility] MRI | Record | | | | | [address] | | | | | | [place] [address] | | | | | | [phone] | | | +--------+ + + + [...] | 2018 | Visit | | [address] | | | | | | [place] [address] | | | | | | [phone] | | | | | | | [...] | + + + + + | [facility] | [address] | [place] [address] | | + + + + + [...] | [address] | [place] [address] | | + + + + + in this encounter Visit Diagnoses + + | Diagnosis | + + | Pain | + + | Generalized pain | + +"
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
--- OUTSIDE RECORDS SUMMARY | ~2018-07-05 | XMS | Encounter Summary ---
Demographics + + + | Address | [address] | | | [place] [address] | + + + | Home Phone [...] Providers + +------+ + | Care Wood Cutter Name | Role | Phone | [...] IMAGING | | | | | | [phone] | | | +--------+ + + + [...]
--- OUTSIDE RECORDS SUMMARY | ~2018-07-05 | XMS | Encounter Summary ---
Demographics + + + | Address | [address] | | | [place] [address] | + + + | Home Phone | | + + + | Preferred Language | Unknown | + + + | Marital Status | | + + + | Gnosticist Affiliation | 1041 | + + + [...] Team Providers + +------+ + | Care Roadway Technician Name | Role | Phone | [...] [place] | | | | | [phone] | [place] [address] | | +--------+ + + + + [...]
--- OUTSIDE RECORDS SUMMARY | ~2018-07-05 | XMS | Encounter Summary ---
Demographics + + + | Address | [address] | | | [place] [address] | + + + | Home Phone | | + + + | Preferred Language | Unknown | + + + | Marital Status | | + + + | Anabaptist Affiliation | 1041 | + + + [...] Team Providers + +------+ + | Care Harness And Bag Inspector Name | Role | Phone | [...] + + | 05/09/ | Telephone | [facility] | Nick Martinez, | Results, Imaging | | 2018 | | PHYSIATRY [address] | PA-C [address] | | | | | [place], | [address] [place] | | | | | [place] [address] | [place] [address] | | | | | [phone] | [phone] | | | | | | | [...]
--- OUTSIDE RECORDS SUMMARY | ~2018-07-05 | XMS | Encounter Summary ---
Demographics + + + | Address | [address] | | | [place] [address] | + + + | Home Phone | | + + + | Preferred Language | Unknown | + + + | Marital Status | | + + + | Latter Day Affiliation | 1013 | + + + | Race | Unknown | + + + | Ethnic Group | Unknown | + + + Author + + + | Author | [facility] | + + + | Organization | [facility] | + + + | Address | Unknown | + + + | Phone | Unavailable | + + + Support + + +---------+ + | Name | Relationship | Address | Phone | + + +---------+ + | Detailed,Message | ECON | Unknown | | + + +---------+ + | Giuseppe Mencahca | ECON | Unknown | | + + +---------+ + | Jorje Menchacasse | ECON | Unknown | | + + +---------+ + | Gwendolyn Cho | ECON | Unknown | | + + +---------+ + | Nathalia Weinstein | ECON | Unknown | | + + +---------+ + Care Team Providers + +------+ + | Care Rail Flaw Detector Operator Name | Role | Phone | [...] + | 07/27/ | Hospital | [facility] | See, Medical | Pain | | 2018 | Encounter | [facility] | Record | | | | | RADIOLOGY [address] | | | | | | [address] | | | | | | [place] [address] | | | | | | [phone] | | | +--------+ + + + [...] | 2018 | Visit | | [address] [facility] | | | | | | [place] [address] | | | | | | [phone] | | | | | | | [...] [facility] | [address] | [place] [address] | | + + + + + in this encounter Visit Diagnoses + + | Diagnosis | + + | Pain | + + | Generalized pain | + +"
--- OUTSIDE RECORDS SUMMARY | ~2018-07-05 | XMS | Encounter Summary ---
Demographics + + + | Address | [address] | | | [place] [address] | + + + | Home Phone | | + + + | Preferred Language | Unknown | + + + | Marital Status | | + + + | Buddhism Affiliation | 1013 | + + + | Race | Unknown | + + + | Ethnic Group | Unknown | + + + Author + + + | Author | [facility] | + + + | Organization | [facility] | + + + | Address | [...] Providers + +------+ + | Care Project Control Analyst Name | Role | Phone | [...] + + | 07/27/ | Hospital | [facility] | See, Medical | Pain | | 2018 | Encounter | [facility] | Record | | | | | RADIOLOGY [address] | | | | | | [address] | | | | | | [place] [address] | | | | | | [phone] | | | +--------+ + + + [...] | 2018 | Visit | | [address] [facility] | | | | | | [place] [address] | | | | | | [phone] | | | | | | | [...] [facility] | [address] | [place] [address] | | + + + + + in this encounter Visit Diagnoses + + | Diagnosis | + + | Pain | + + | Generalized pain | + +"
--- OUTSIDE RECORDS SUMMARY | ~2018-07-05 | XMS | Encounter Summary ---
Demographics + + + | Address | [address] | | | [place] [address] | + + + | Home Phone | | + + + | Preferred Language | Unknown | + + + | Marital Status | | + + + | Holiness Affiliation | 1041 | + + + [...] Team Providers + +------+ + | Care Packer Denture Name | Role | Phone | + +------+ + | Wendi Aiken | PCP | | + +------+ + Encounter Details +--------+ + + + + | Date | Type | Department | Care Team | Description | +--------+ + + + + | 04/06/ | Hospital | [facility] | Nick Martinez, | Lumbar radiculopathy | | 2018 | Encounter | MED CTR XRAY [address] | PA-C [address] | | | | | [place] | [address] [place] | | | | | [place] [address] | [place] [address] | | | | | [phone] | [phone] | | | | | | | | | | | | Banjo Repair Person, [facility] | | +--------+ + + + [...] Last Filed Vital Signs + +---------+ + | Vital Sign | Reading | Time Taken | + +---------+ + | Blood Pressure | 133/68 | 04/06/2018 1311 PDT | + +---------+ + | Pulse | 84 | 04/06/2018 1311 PDT | + +---------+ + | Temperature | - | - | + +---------+ + | Respiratory Rate | - | - | + +---------+ + | Oxygen Saturation | - | - | + +---------+ + | Inhaled Oxygen | - | - | | Concentration | | | + +---------+ + | Weight | - | - | + +---------+ + | Height | - | - | + +---------+ + | Body Mass Index | - | - | + +---------+ + in this encounter Medications at Time [...] + + +-------+---------+ + + | ibuprofen | Take 600 [...] | + + +-------+---------+ + + | Loratadine 10 MG | Take 10 mg by mouth | | | | | | CAPS | Daily as needed. | | | | | + + +-------+---------+ + + | acetaminophen | Take 500 mg by mouth | | | | | | (TYLENOL) 500 mg | every 6 hours as | | | | 8 | | tablet | needed for Pain. | | | | | + + +-------+---------+ + + | clonazepam | Take 1 mg by mouth | | | | | | (KLONOPIN) 2 MG [...] + + +-------+---------+ + + | | Apply 2 g topically | | | | | | LIDOCAINE-PRILOCAINE | 3 times daily. | | | | 8 | | EX | | | | | | + + +-------+---------+ + + | methocarbamol | Take 750 mg by mouth | | | | | | (ROBAXIN) 750 mg | 4 times daily. | | | | 8 | | tablet | | | | | | + + +-------+---------+ + + | mirabegron | Take 25 mg by mouth | | | | | | (MYRBETRIQ) 25 mg ER | Daily. | | | | 8 | | tablet | | | | | | + + +-------+---------+ + + | ranitidine | Take 150 mg by mouth | | | | | | (ZANTAC) 150 MG | as needed. | | | | 8 | | capsule | | | | | | + + +-------+---------+ + + | Ropinirole HCl | Take 4 mg by mouth 4 | | | 08/31/20 | | | (REQUIP XL) [...] Lumbar Transforaminal | Routin | Lumbar | 1 Occurrences | | | e | radiculopathy | starting 04/06/2018 | | | | | until 04/06/2018 | + +--------+ + + as of this encounter Visit Diagnoses + + | Diagnosis | + + | Lumbar radiculopathy | + + | Thoracic or lumbosacral neuritis or radiculitis, unspecified | + + Administered Medications + +--------+ +-------+------+------+ | Medication Order | MAR | Action | Dose | Rate | Site | | | Action | Date | | | | + +--------+ +-------+------+------+ | dexamethasone (PF) 10 mg/mL | Given | 04/06/2018 | 10 mg | | | | injection 10 mg 10 mg, Other, | | 13:20 | | | | | ONCE, [facility] 04/06/18 at 1330, For 1 | | PDT | | | | | dose | | | | | | + +--------+ +-------+------+------+ +---+---+ | | | +---+---+ + +-------+ +-------+---+---+ | iohexol (OMNIPAQUE 300) 300 | Given | 04/06/2018 | 4 mLs | | | | mg/mL injection 4 mL 4 mL, | | 13:18 | | | | | Other, ONCE, [facility] 04/06/18 at 1330, | | PDT | | | | | For 1 dose | | | | | | + +-------+ +-------+---+---+ +---+---+ | | | +---+---+ + +-------+ +-------+---+---+ | lidocaine (PF) 1% injection 2 | Given | 04/06/2018 | 2 mLs | | | | mL 2 mL, Other, ONCE, [facility] 04/06/18 | | 13:20 | | | | | at 1330, For 1 dose | | PDT | | | | + +-------+ +-------+---+---+ +---+---+ | | | +---+---+ + +-------+ +-------+---+ + | lidocaine buffered 1.3% | Given | 04/06/2018 | 3 mLs | | Other | | injection 3 mL 3 mL, | | 13:15 | | | (Comment | | Intradermal, ONCE, [facility] 6/7/18 at | | PDT | | | ) | | 1330, For 1 dose | | | | | | + +-------+ +-------+---+ + +---+---+ | | | +---+---+ in this encounter"
--- OUTSIDE RECORDS SUMMARY | ~2018-07-05 | XMS | Encounter Summary ---
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 Removed Ranitidine and Myrbetriq from med list as these have not been filled in the last 3 months. Please see [facility]PLET[facility] med list for updated medication list. Electronically [...] KORI | | | | | | [id number] | | | [id number] | | | [facility] | | | [...] | | | St. | | | Center | | | y | | [...] | | | St. | | | Center | | | y H. | [...] | | | St. | | | Center | | | y H. | [...] | | | St. | | | Center | | | y H. | [...] | | | St. | | | Center | | | y H. | [...] | | | St. | | | Center | | | y H. | [...] | | | St. | | | Center | | | y H. | [...] | | | St. | | | Center | | | y | | [...] | | | L | | | BLOCK TESTER | | | , MD 2 | [...] + + | [facility] | [address] | [place] [address] | [phone] | | HOSPITAL LAB[facility]ATORY | | | [...] + + | [facility] | [address] | [place] [address] | [phone] | | HOSPITAL LABORATORY | | | [...] + + | [facility] | [address] | [place] [address] | [phone] | | HOSPITAL LABORATORY | | | [...] + + | [facility] | [address] | [place] [address] | [phone] | | HOSPITAL LABORATORY | | | [...] >=60 mL/min/1.73m2 | [facility] | | SOLOMON ISLANDER | FILTRATION | | HOSPITAL | | | RATE,ESTIMATED mL/min | | LABORATORY | | | /1.97n8Hpnf than 60 | | | | | [...] + + | [facility] | [address] | [place] [address] | [phone] | | HOSPITAL LABORATORY | | | [...] + + | [facility] | [address] | [place] [address] | [phone] | | HOSPITAL LABORATORY | | | [...] + + | [facility] | [address] | [place] [address] | [phone] | | HOSPITAL LABORATORY | | | [...] + + + + + | Specific [place] | 1.010 | 1.003 - 1.030 | [...] + + | [facility] | [address] | [place] [address] | [phone] | | HOSPITAL LABORATORY | | | [...] the attending | LABORATORY | | physician. Ycbo-ofc-qqahzga drugs may cross react with some methods. [...] + + | [facility] | [address] | [place] [address] | [phone] | | HOSPITAL LABORATORY | | | [...]
--- OUTSIDE RECORDS SUMMARY | ~2018-07-05 | XMS | Clinical Summary ---
Demographics + + + | Address | [address] | | | [place] [address] | + + + | Home Phone | | + + + | Preferred Language | Unknown | + + + | Marital Status | | + + + | Scientology Affiliation | 1041 | + + + [...] Providers + +------+ + | Care Water Softener Installer Name | Role | Phone | [...] + +---+ + + | Overview: LOUISE [id number] Decision | + + + +---+ | [...] Medication Prior | 2017 | | | BRI | Authorization | | | | | | (Lidocaine Patch ) | +--------+ + + + + | 04/10/ | Telephone | | Nick Martinez, | Medication Follow-up | | 2017 | | | BRI | | +--------+ + + + + | 04/07/ | Ancillary | | Provider, | | | 2017 | Orders | | MD Hemalatha | | +--------+ + + + + | 04/06/ | Hospital | | Nick Martinez, | Lumbar radiculopathy | | 2017 | Encounter | | BRI Nurse Practitioner Per Diem, | | | | | | [facility] | | +--------+ + + + + | 04/06/ | Telephone | | Nick Martinez, | Results, Imaging | | 2017 | | | PA-C | (MRI/Cancelled | | | | | | Injection) | +--------+ + + + + | 04/06/ | Telephone | | Shay Dietz | Injections | | 2017 | | | MD Lonny | | +--------+ + + + + | 04/06/ | Ancillary | | Provider, | | | 2018 | Orders | | MD Hemalatha | | +--------+ + + + + | 04/06/ | Procedure | | | | | 2018 | Pass | | | | +--------+ + + + + | 06/06/ | Imaging | | Provider, | | | 2018 | Exam | | Historical, MD | | +--------+ + + + [...] + + | Brother | | | [place] | | | | (Age | | [...] for this | | DIFFERENTIAL | | 0 PDT | | procedure [...] this | | MICROSCOPIC WITH | | 0 PDT | | procedure [...] KORI | | | | | | [id number] | | | [id number] | | | [facility] | | | [...] | | | St. | | | [place] | | | y | | | [...] | | | 541-96 | | | 3-0527 | | | .These | | | [...] | | | St. | | | [facility] | | | y H. | | [...] | | | St. | | | [facility] | | | y H. | | [...] | | | St. | | | [place] | | | y H. | | [...] | | | St. | | | [place] | | | y H. | | [...] | | | St. | | | [place] | | | y H. | | [...] | | | St. | | | [place] | | | y H. | | [...] | | | St. | | | [place] | | | y | | | [...] | | | L | | | PIPE AND BOILER COVERS SUPERVISOR | | | , MD 2 [...] | | | ation. | | | 2017 | | | [...] section. | + +--------+ +---+ + | MRI LUMBAR [...] + + | [facility] | [address] | [place] [address] | [phone] | | HOSPITAL LABORATORY | | | | + + + + + CBC with Differential (06/23/20182129) + + + + + | Component | Value | Ref Range | Performed At | + + + + + | WBC | 6.2 | 4.3 - 10.4 K/uL | [facility] | | | [...] + + | [facility] | [address] | [place] [address] | [phone] | | HOSPITAL LABORATORY | | | [...] + + | [facility] | [address] | [place] [address] | [phone] | | HOSPITAL LABORATORY | | | | + + + + + Ethanol (06/23/20180) + +-------+ + + | Component | Value | Ref Range | Performed At | + +-------+ + + | ALCOHOL, | <3 | 0 - 10 mg/dL | [facility] | | SERUM/PLASMA | | | HOSPITAL | | | | | LABORATORY | + +-------+ + + + + | Specimen | + + | Blood | + + + + + + + | Performing | Address | City/State/Zipcode | Phone Number | | Organization | | | | + + + + + | [facility] | [address] | [place] [address] | [phone] | | HOSPITAL LABORATORY | | | | + + + + + Acetaminophen Level (06/23/2018 2130) + +---------+ + + | Component | Value | Ref Range | Performed At | + +---------+ + + | Acetaminophen Level | <=2 (L) | 10 - 20 ug/mL | [facility] | | | | [...] + + | [facility] | [address] | [place] [address] | [phone] | | HOSPITAL LABORATORY | | | | + + + + + Salicylate Level (06/23/20180) + + + + + | Component [...] + + | [facility] | [address] | [place] [address] | [phone] | | HOSPITAL LABORATORY | | | [...] | 5 - 26 mg/dL | [facility] | | | | | [facility]OSPITAL | [...] >=60 mL/min/1.73m2 | [facility] | | TURKMEN | FILTRATION | | HOSPITAL | | | RATE,ESTIMATED mL/min | | LABORATORY | | | /1.15j0Ywcp than 60 | | | | | [...] | 8.3 - 10.0 mg/dL | [facility] | | | [...] | 6.6 - 8.5 g/dL | [facility] | | | [...] 19.0 | 7.0 - 24.0 | [facility] | | | | [...] + + | [facility] | [address] | [place] [address] | [phone] | | HOSPITAL LABORATORY | | | [...] + + + + + | Specific [place] | 1.010 | 1.003 - 1.030 | [...] NITRITE UA | Negative | Negative | [facility] | | | | | HOSPITAL [...] | Urine Culture Not | | [facility] | | | Indicated | | HOSPITAL [...] + + | [facility] | [address] | [place] [address] | [phone] | | HOSPITAL LABORATORY | | | [...] the attending | LABORATORY | | physician. Scdf-cij-ymwthun drugs may cross react with some methods. [...] + + | [facility] | [address] | [place] [address] | [phone] | | HOSPITAL LABORATORY | | | | + + + + + MRI Lumbar Spine wo Contrast (05/09/2018 1125)Only [...] +---------+ | INDIVIDUAL ASSURANCE | INDIVI | [id number] | Indemn | | | | COMPANY | DUAL | | ity | | | | | ASSURA | | | | | | | NCE CO | | | | | | | MDCR | | | | | | | SUPPL | | | | | + +--------+ +--------+ +---------+ | MEDICARE | MEDICA | [id number] | Medica | +- | | | | RE | | re | 555 | | | | PART A | | | | | | | AND B | | | | | + +--------+ +--------+ +---------+ | MEDICARE | MEDICA | [id number] | Medica | +- | | | | RE | | re | [phone] | | | | PART A | | | | | | | AND B | | | | | + +--------+ +--------+ +---------+ | MEDICARE | MEDICA | [id number] | Medica | [phone] | | | RE | | re | [phone] | | | | PART A | | | | | | | AND B | | | | | + +--------+ +--------+ +---------+ | INDIVIDUAL ASSURANCE | INDIVI | [id number] | Indemn | | | | COMPANY | DUAL | | ity | | | | | ASSURA | | | | | | | NCE CO | | | | | | | MDCR | | | | | | | SUPPL | | | | | + +--------+ +--------+ +---------+ | INDIVIDUAL ASSURANCE | INDIVI | [id number] | Indemn | | | | COMPANY [...] JESSI | al/Fam | | 1945 | +- | [address] [place], [place] | | | jose | | | [phone] | [phone] | + +--------+ +--------+ + + | YU HARMON | Person | Self | [birth year] | Home: | [address] | | JOSEPH JESSI | al/Fam | | 1945 | [phone] | [address] [place], [place] | | | jose | | | [phone] | [phone] | + +--------+ +--------+ + + | YU HARMON | Person | Self | [birth year] | Home: | [address] | | [place] | al/Fam | | 1945 | [phone] | [address] [place] | | | jose | | | [phone] | [phone] | + +--------+ +--------+ + +
--- OUTSIDE RECORDS SUMMARY | ~2018-07-05 | XMS | Encounter Summary ---
Demographics + + + | Address | [address] | | | [place] [address] | + + + | Home Phone | | + + + | Preferred Language | Unknown | + + + | Marital Status | | + + + | Gnosticist Affiliation | 1013 | + + + | Race | Unknown | + + + | Ethnic Group | Unknown | + + + Author + + + | Author | [facility] | + + + | Organization | [facility] | + + + | Address | [...] Providers + +------+ + | Care Journeyman Pipefitter Name | Role | Phone | + [...] | Physical | Diagnoses | [place], | [place], [place] | | | Services | Therapy | Pain of | DO Alfredo | Kiana | | | Required | | both hip | [address] | Outpatient | | | | | joints | ST | Physican | | | | | Lumbar pain | [place], [place] | Therapy [address] | | | | | | [address] | [address] | | | | | | Phone: | WAY | | | | | | [phone] | [place] | | | | | | Fax: | [address] | | | | | | [phone] | Phone: | | | | | | | [phone] | | | | | | | Fax: | | | | | | | [phone] | + + + + + + + Encounter Details +--------+ + + + + | Date | Type | Department | Care Team | Description | +--------+ + + + + | 06/26/ | Telephone | [facility] | Jennifer Hicks, ELECTRICAL ACCESSORIES ASSEMBLER | | | 2017 | | [facility] | | | | | | MEDICINE RAD[facility] | | | | | | PAIN [address] | | | | | | [place] | | | | | | [address] | | | | | | [phone] | | | +--------+ + + + [...] | 2018 | Visit | | [address] [facility] | | | | | | [place] [address] | | | | | | [phone] | | | | | | | [...]
--- OUTSIDE RECORDS SUMMARY | ~2018-07-05 | XMS | Encounter Summary ---
Demographics + + + | Address | [address] | | | [place] [address] | + + + | Home Phone | | + + + | Preferred Language | Unknown | + + + | Marital Status | | + + + | Oriental Orthodox Affiliation | 1013 | + + + | Race | Unknown | + + + | Ethnic Group | Unknown | + + + Author + + + | Author | [facility] | + + + | Organization | [facility] | + + + | Address | [...] Providers + +------+ + | Care Outside Sales Account Executive Name | Role | Phone [...] is | | 2018 | | [facility] | [address] | returning a call to | | | | [address] | [place] [address] | Vicki about | | | | [place] | [phone] | referral. She needs | | | | [address] | | to schedule ) | | | | [phone] | | | +--------+ + + + [...] ST | | | | | | [place] [address] | | | | | | [phone] | | | | | | | | +--------+---------+ + + + as of this encounter Visit Diagnoses Not on filein this encounter"
--- OUTSIDE RECORDS SUMMARY | ~2018-07-05 | XMS | Encounter Summary ---
Demographics + + + | Address | [address] | | | [place] [address] | + + + | Home Phone | | + + + | Preferred Language | Unknown | + + + | Marital Status | | + + + | Jew Affiliation | 1013 | + + + | Race | Unknown | + + + | Ethnic Group | Unknown | + + + Author + + + | Author | [facility] | + + + | Organization | [facility] | + + + | Address | [...] Providers + +------+ + | Care Blocker Heated Metal Forms Name | Role | Phone | + [...] + + | 06/05/ | Telephone | [facility] | Jennifer Hicks, POWER GENERATION EQUIPMENT REPAIRER | Other (referral ) | | 2017 | | [facility] | | | | | | MEDICINE RADHA | | | | | | [address] | | | | | | [place] | | | | | | [address] | | | | | | [phone] | | | +--------+ + + + [...] | Visit | | [address] [facility] | | | | | | [place] [address] | | | | | | [phone] | | | | | | | | +--------+---------+ + + + as of this encounter Visit Diagnoses Not on filein this encounter"
--- OUTSIDE RECORDS SUMMARY | ~2018-07-05 | XMS | Encounter Summary ---
Demographics + + + | Address | [address] | | | [place] [address] | + + + | Home Phone [...] Providers + +------+ + | Care Production Team Member Name | Role | Phone | [...] + + | 04/06/ | Telephone | [facility] | Nick Martinez, | Results, Imaging | | 2017 | | PHYSIATRY [address] | PA-C [address] | (MRI/Cancelled | | | | [place], | [address] [place] | Injection) | | | | [place] [address] | [place] [address] | | | | | [phone] | [phone] | | | | | | | [...]
--- OUTSIDE RECORDS SUMMARY | ~2018-07-05 | XMS | Clinical Summary ---
Demographics + + + | Address | [address] | | | [place] [address] | + + + | Home Phone [...] Team Providers + +------+ + | Care Beauty Culturist Apprentice Name | Role | Phone | + +------+ + | Oxana Nye | PP | Unavailable | + +------+ + Source Comments RADHA is fully live on both [facility] and [facility] Allergies + + + + + + [...] | Medica | [phone] | [address] | | | RE A & | | re | [phone] | [place] [address] | | | B | | | | | + +--------+ +--------+ + + | [employer] | AARP | [phone] | Indemn | +- | [address] | | RETIRED PEOPLE | | | ity | [phone] | [place] [address] | + +--------+ +--------+ + + + +--------+ +--------+ + + | Guarantor Name | Accoun | Relation to | Date | Phone | Billing Address | | | t Type | Patient | of | | | | | | | | | | + +--------+ +--------+ + + | YU HARMON | Person | Self | [birth year] | Home: | [address] | | [place] | al/Benji | | 1945 | [phone] | [address] [place], [place] | | | jose | | | [phone] | [phone] | + +--------+ +--------+ + +
--- OUTSIDE RECORDS SUMMARY | ~2018-07-05 | XMS | Encounter Summary ---
Demographics + + + | Address | [address] | | | [place] [address] | + + + | Home Phone | | + + + | Preferred Language | Unknown | + + + | Marital Status | | + + + | Christian Affiliation | 1013 | + + + | Race | Unknown | + + + | Ethnic Group | Unknown | + + + Author + + + | Author | [facility] | + + + | Organization | [facility] | + + + | Address [...] Providers + +------+ + | Care Special Librarian Name | Role | Phone | [...] [place] | | | | | | [address] | | | | | | [phone] | | | +--------+ + + + [...] | | | | | [place] [address] | | | | | | [phone] | | | | | | | | +--------+---------+ + + + as of this encounter Visit Diagnoses Not on filein this encounter"
--- OUTSIDE RECORDS SUMMARY | ~2018-07-05 | XMS | Encounter Summary ---
Demographics + + + | Address | [address] | | | [place] [address] | + + + | Home Phone | | + + + | Preferred Language | Unknown | + + + | Marital Status | | + + + | Baptist Affiliation | 1013 | + + + | Race | Unknown | + + + | Ethnic Group | Unknown | + + + Author + + + | Author | [facility] | + + + | Organization | [facility] | + + + | Address | [...] Providers + +------+ + | Care Environmental Health Sanitarian Name | Role | Phone | + +------+ + | Wendi Aiken PA-C | PCP | | + +------+ + Encounter Details +--------+ + + + + | Date | Type | Department | Care Team | Description | +--------+ + + + + | 06/20/ | Telephone | [facility] | Jennifer Hicks CMA | | | 2017 | | [facility] | | | | | | MEDICINE RADHA | | | | | | PAIN [address] | | | | | | [place] | | | | | | [address] | | | | | | [phone] | | | +--------+ + + + [...] | | | | | [place] [address] | | | | | | [phone] | | | | | | | | +--------+---------+ + + + as of this encounter Visit Diagnoses Not on filein this encounter"
[2018-07-05] MEDS ORDERED: DOXYCYCLINE HY100 MG PO (21:46)
--- NOTE | 2018-07-06 18:53 | EKG ---
[facility] [address] [place], [place] [address] Signed Normal sinus rhythm Abnormal ECG When compared with ECG of 24-FEB-2018 16:44, No significant change was found Confirmed by FLORES ROBERTS DO ([id number]) on 07/06/2018 6:53:39 PM Electronically Signed By: FLORES ROBERTS DO 07/06/18 1853 PATIENT NAME: RONALD FLORIAN Electrocardiogram DATE OF : 49 PHYSICIAN: FLORES ROBERTS DO REPORT #: [id number] REPORT IS CONFIDENTIAL AND NOT TO BE RELEASED WITHOUT AUTHORIZATION
== END 2018-07-05 21:58 | disposition home or self-care (01) ==
LOC: ED 18:11
DX: R07.89 Other chest pain (principal); E11.9 Type 2 diabetes mellitus without complications; J44.9 Chronic obstructive pulmonary disease, unspecified; F32.9 Major depressive disorder, single episode, unspecified; Z88.8 Allergy status to other drugs, medicaments and biological substances; Z79.899 Other long term (current) 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; Z79.891 Long term (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 of opiate analgesic; Z79.82 Long term (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 of aspirin
CPT/HCPCS: 36415; 71046; 80053; 83690; 84484; 85025; 93005; 93010; 99285

== ENCOUNTER 2018-07-13 14:27 | Emergency (ER) | payer MEDICARE, OTHER ==
[~2018-07-13] VITALS: Ht 154.9 cm; Wt 54.9 kg
--- OUTSIDE RECORDS SUMMARY | ~2018-07-13 | XMS | Encounter Summary ---
Demographics + + + | Address | [address] | | | [place] [address] | + + + | Home Phone | | + + + | Preferred Language | Unknown | + + + | Marital Status | | + + + | Episcopalian Affiliation | 1013 | + + + | Race | Unknown | + + + | Ethnic Group | Unknown | + + + Author + + + | Author | [facility] | + + + | Organization | [facility] | + + + | Address | [...] | | + + +---------+ + | Jorje Menchacasse | ECON | Unknown | | + + +---------+ + | Gwendolyn Cho | ECON | Unknown | | + + +---------+ + | Nathalia Weinstein | ECON | Unknown | | + + +---------+ + Care Team Providers + +------+ + | Care Ship Engines Operating Engineer Name | Role | Phone | + +------+ + | Oxana Nye NP | PCP | | + +------+ + Reason for Visit MRI/CAT Scan (Routine) + +--------+ + + [...] Record | | | | | | MRI lumbar | | | | | | | spine | | | | | | | without | | | | | | | contrast | | | + +--------+ + + + + Encounter Details +--------+ + + + + | Date | Type | Department | Care Team | Description | +--------+ + + + + | 07/27/ | Hospital | [facility] | See, Medical | Pain | | 2018 | Encounter | [facility] | Record | | | | | RADIOLOGY [address] | | | | | | [address] | | | | | | [place] [address] | | | | | | [phone] | | | +--------+ + + + [...] + + + as of this encounter Medications at Time of Discharge + + +-------+---------+ + + | Medication | Sig. | Disp. | Refills | Start | End Date | | | | | | Date | | + + +-------+---------+ + + | albuterol | Take 2 ampules by | | | | | | (ACCUNEB) 1.25 | nebulization every 6 | | | | | | MG/3ML nebulizer | (six) hours as | | | | | | solution | needed for Wheezing. | | | | | + + +-------+---------+ + + | aspirin 81 MG | Take 81 mg by mouth | | | | | | tablet | daily. | | | | | + + +-------+---------+ + + | clonazePAM | Take 1 mg by mouth | | | | | | (KLONOPIN) 1 MG | nightly. | | | | | | tablet | | | | | | + + +-------+---------+ + + | | Take 1 tablet by | | | | | | HYDROcodone-acetamin | mouth every 6 (six) | | | | | | ophen (NORCO) 10-325 | hours as needed for | | | | | | MG per tablet | Pain. | | | | | + + +-------+---------+ + + | ibuprofen (MOTRIN) | Take 800 mg by mouth | | | | | | 800 MG tablet | every 6 (six) hours | | | | | | | as needed for Pain. | | | | | + + +-------+---------+ + + | levothyroxine | Take 100 mcg by | | | | | | (SYNTHROID) 88 MCG | mouth daily. | | | | | | tablet | | | | | | + + +-------+---------+ + + | lidocaine | Apply up to 3 | | | // | | | (LIDODERM) 5 % | patches TOPICALLY at | | | 18 | | | | one time, for up to | | | | | | | 12 hours within a | | | | | | | 24-hour period | | | | | + + +-------+---------+ + + | loratadine | Take 10 mg by mouth | | | | | | (CLARITIN) 10 MG | daily. | | | | | | tablet | | | | | | + + +-------+---------+ + + | NARCAN 4 MG/0.1ML | instill 1 spray in 1 | | 0 | 04/10/20 | | | LIQD | NOSTRIL if needed | | | 18 | | | | for opioid overdose | | | | | | | may re... (REFER TO | | | | | | | PRESCRIPTION | | | | | | | NOTES). | | | | | + + +-------+---------+ + + | nitroGLYCERIN | Place 0.4 mg under | | | | | | (NITROSTAT) 0.4 MG | the tongue every 5 | | | | | | SL tablet | (five) minutes as | | | | | | | needed for Chest | | | | | | | pain. | | | | | + + +-------+---------+ + + | ropinirole | Take 2 mg by mouth 4 | | | | | | (REQUIP) 2 MG tablet | (four) times daily. | | | | | + + +-------+---------+ + + | atorvastatin | Take 40 mg by mouth | | | | | | (LIPITOR) 40 MG | nightly. | | | | 8 | | tablet | | | | | | + + +-------+---------+ + + | clopidogrel | Take 75 mg by mouth | | | | | | (PLAVIX) 75 MG | daily. | | | | 8 | | tablet | | | | | | + + +-------+---------+ + + as of this encounter Plan of Treatment +--------+---------+ + + + | Date | Type | Specialty | Care Team | Description | +--------+---------+ + + + | 07/19/ | Office | Dolorology | Alfredo Casillas DO | | | 2018 | Visit | | [address] [facility] | | | | | | [place] [address] | | | | | | [phone] | | | | | | | | +--------+---------+ + + + as of this encounter Procedures + +--------+ [...] + + in this encounter Results MRI lumbar spine without contrast (04/05/2018 2:55 AM) + + + | Narrative | Performed At | + + + | This is a non-reportable procedure without a radiologist report and | [facility] | | is used for image storage only | RADIOLOGY | + + + + + + + + | Performing | Address | City/State/Zipcode | Phone Number | | Organization | | | | + + + + + | [facility] | [address] | [place] [address] | | + + + + + in this encounter Visit Diagnoses + + | Diagnosis | + + | Pain | + + | Generalized pain | + +"
--- OUTSIDE RECORDS SUMMARY | ~2018-07-13 | XMS | Clinical Summary ---
Demographics + + + | Address | [address] | | | [place] [address] | + + + | Home Phone | | + + + | Preferred Language | Unknown | + + + | Marital Status | Single | + + + | Pentecostalism Affiliation | NON | + + + [...] Team Providers + +------+ + | Care Solar Installation Manager Name | Role | Phone | + +------+ + | Oxana Nye | PP | Unavailable | + +------+ + Source Comments [facility] Allergies + + + + + + [...] | + + + + + | Pneumococcal (Adult) | | | | | (1 of 2 - PCV13) | 2 | | | + + + + + | INFLUENZA VACCINE | | | | | (FLU SHOT): NO | 8 | | | | MYCHART REMINDER | | | | + + + + + Results Not on filefrom Last 3 Months Insurance + +--------+ +--------+ + + | Payer | Benefi | Subscriber | Type | Phone | Address | | | t Plan | ID | | | | | | / | | | | | | | Group | | | | | + +--------+ +--------+ + + | MEDICARE | MEDICA | xxxxxxxxxx | Medica | [phone]- | [address] | | | RE A & | | re | [phone] | [place] [address] | | | B | | | | | + +--------+ +--------+ + + | [employer] | AARP | xxxxxxxxxx | Indemn | +- | [address] | | RETIRED PEOPLE | | | ity | [phone] | [place] [address] | + +--------+ +--------+ + + + +--------+ +--------+ + + | Guarantor Name | Accoun | Relation to | Date | Phone | Billing Address | | | t Type | Patient | of | | | | | | | | | | + +--------+ +--------+ + + | YU HARMON | Person | Self | [birth year] | Home: | [address] | | [place] | al/Benji | | 1945 | [phone] | [address] [place], [place] | | | jose | | | [phone] | [phone] | + +--------+ +--------+ + +
--- OUTSIDE RECORDS SUMMARY | ~2018-07-13 | XMS | Encounter Summary ---
Demographics + + + | Address | [address] | | | [place] [address] | + + + | Home Phone | | + + + | Preferred Language | Unknown | + + + | Marital Status | | + + + | Baptism Affiliation | 1013 | + + + | Race | Unknown | + + + | Ethnic Group | Unknown | + + + Author + + + | Author | [facility] | + + + | Organization | [facility] | + + + | Address | [...] Team Providers + +------+ + | Care Clinical Nurse Leader Name | Role | Phone | + [...] + + | 05/26/ | Ancillary | [facility] | See, Medical | Pain | | 2018 | Orders | [facility] [address] | Record | | | | | [address] | | | | | | [place] [address] | | | | | | [phone] | | | +--------+ + + + [...] | 2017 | Visit | | [address] [facility] | | | | | | [place] [address] | | | | | | [phone] | | | | | | | [...] | [address] | [place] [address] | | + + + + + in this encounter Visit Diagnoses + + | Diagnosis | + + | Pain | + + | Generalized pain | + +"
--- OUTSIDE RECORDS SUMMARY | ~2018-07-13 | XMS | Encounter Summary ---
Demographics + + + | Address | [address] | | | [place] [address] | + + + | Home Phone | | + + + | Preferred Language | Unknown | + + + | Marital Status | | + + + | Baptism Affiliation | 1013 | + + + | Race | Unknown | + + + | Ethnic Group | Unknown | + + + Author + + + | Author | [facility] | + + + | Organization | [facility] | + + + | Address | [...] | | + + +---------+ + | Ntahalia Weinstein | ECON | Unknown | | + + +---------+ + Care Team Providers + +------+ + | Care Audit Analyst Name | Role | Phone | + +------+ + | Wendi Aiken PA-C | PCP | | + +------+ + Encounter Details +--------+ + + + + | Date | Type | Department | Care Team | Description | +--------+ + + + + | 06/07/ | Hospital | [facility] | Alfredo Casillas DO | | | 2018 | Encounter | [facility] | [address] [facility] | | | | | Preadmission | [place] [address] | | | | | Services [address] | [phone] | | | | | [address] [place], [place] | | | | | | [address] | | | +--------+ + + + [...] + + + | Blood Pressure | 99/59 | 06/07/2018 3:04 PM PDT | + + + + | Pulse | 66 | 06/07/2018 3:04 PM PDT | + + + + | Temperature | - | - | + + + + | Respiratory Rate | - | - | + + + + | Oxygen Saturation | 98% | 06/07/2018 3:04 PM PDT | + + + + | Inhaled Oxygen | - | - | | Concentration | | | + + + + | Weight | 53.3 kg (117 lb 9.6 | 06/07/2018 3:04 PM PDT | | | oz) | | + + + + | Height | 154.9 cm (5' 1") | 06/07/2018 3:04 PM PDT | + + + + | Body Mass Index | 22.22 | 06/07/2018 3:04 PM PDT | + + + + in this encounter Discharge Instructions Linn Bills RN - 06/07/2018Formatting of this note may be different from the original. Outpatient Prescriptions Marked as Taking for the 06/07/18 encounter (Hospital Encounter) wit h [facility] ROOM 5 Medication Sig INSTRUCTIONS albuterol (ACCUNEB) 1.25 MG/3ML nebulizer solution Take 2 ampules by nebulization every 6 (six) hours as needed for Wheezing. TAKE day of procedure, if needed HYDROcodone-acetaminophen (NORCO) 10-325 MG per tablet Take 1 tablet by mouth every 6 ( six) hours as needed for Pain. TAKE day of procedure, if needed nitroGLYCERIN (NITROSTAT) 0.[address] 0.4 mg under the tongue every 5 (five) minutes as needed for Chest pain. TAKE day of procedure, if needed Kyphoplasty Kyphoplasty is a procedure that can help relieve the pain of vertebral compression fracture . (This is a collapse of bone in your spine most commonly caused by osteoporosis.) It does t his by strengthening your spine (vertebrae) with special cement. The procedure usually takes 30 to 45 minutes. Preparing for the procedure Tell your healthcare provider about all medicines you take. This includes xnmo-aon-krhgxbg medicines, herbs, vitamins, and other supplements. Ask your healthcare provider if there are medicines you must stop taking before the proc edure. Do not eat or drink anything for at tbppo0yejee before the procedure. Arrange for an adult family member or friend to drive you home. During the procedure Your healthcare providerwillgive youanesthesia. This is medicine to keep you from fee ling pain during the procedure.During kyphoplasty: Your surgeon makes one or more tiny incisions in your back. Using video X-ray images as a guide,your surgeon inserts a hollow tube through the inc ision into the collapsed vertebra. A small balloon is passed through the tube into the vertebra. There it is inflated to op en a space. The balloon is then removed and the empty space is filled with special cement for bones. Risks and complications Kyphoplasty is considered safe. If complications do happen, they may include the following: Nerve damage Cement leakage Heart or lung problems New or unrelieved back pain Infection After the procedure You will be sent to a recovery room after the procedure. Usually, you will go home later th e same day.Or, you may stay the night in a hospital room. Once you re ready to go home, your healthcare provider will tell youhow to care for yourself. When to call your healthcare provider Call your healthcare provider if you have any of these symptoms: Fever of100.4F (38.0C)or higher New pain, weakness, tingling, or numbness in your legs New or unrelieved back pain Date Last Reviewed: 04/30/201619991445-2471 [employer]. [address] [place] [address], [place] [address]. All righ ts reserved. This information is not intended as a substitute for professional medical care. Always follow your healthcare professional's instructions. in this encounter Medications at Time of Discharge + + +-------+---------+ + + | Medication | Sig. | Disp. | Refills | Start | End Date | | | | | | Date | | + + +-------+---------+ + + | acetaminophen | Take 500 mg by | | | | | | (TYLENOL) 500 MG | mouth. | | | | | | tablet [...] | + + +-------+---------+ + + | fentaNYL | apply 1 patch and | | 0 | 08/03/20 | | | (DURAGESIC) 25 | replace every 72 | | | 18 | | | MCG/HR | hours | | | | | + + [...] Apply up to 3 | | | 04/03/20 | | | (LIDODERM) 5 % | [...] | + + +-------+---------+ + + | methocarbamol | Take 750 mg by | | | | | | (ROBAXIN) 750 MG | mouth. | | | | | | tablet | | | | | | + + +-------+---------+ + + | mirabegron ER 25 | Take 25 mg by mouth. | | | | | | MG 24 hr tablet | | | | | | + + +-------+---------+ + + | naproxen | Take 500 mg by mouth | | | | | | (NAPROSYN) 500 MG | 2 (two) times daily | | | | | | tablet | with meals. | | | | | + + +-------+---------+ + + | NARCAN 4 MG/0.1ML | instill 1 spray in 1 | | 0 | 06/11/20 | | | LIQD | NOSTRIL if [...] | Visit | | [address] [facility] [address] | | | | | | [place] [address] | | | | | | [phone] | | | | | | | [...] + + + in this encounter Results Basic metabolic panel (06/07/2018 3:01 PM) + [...] >60Comment: GFR <60: | >60 mL/min/1.73m2 | [facility] | | | CHRONIC KIDNEY DISEASE, | [...] the | | | | | MDRD IDOH traceable | | | | | equation.Testing | | | | | performed at [facility], [address] | | | | [facility], | | | | | [place] [address] | | | + + + + + + + | Specimen | + + | Blood | + + + + + + + | Performing | Address | City/State/Zipcode | Phone Number | | Organization | | | | + + + + + | [facility] | [address] | [place] [address] | [phone] | | LABORATORY | [address]vd[address] | | [...] | [facility] | | | performed at [facility], [address] | | LABORATORY | | | [facility], | | | | | [place] [address] | | | + + + + + + + | Specimen | + + | Blood | + + + + + + + | Performing | Address | City/State/Zipcode | Phone Number | | Organization | | | | + + + + + | [facility] | [address] [place] [address] | [place] [address] | [phone] | | LABORATORY | Blvd. | | [...] + + + + | Calculated P [place] | 80 | degrees | [facility] | + + + + + | Calculated R [place] | -9 | degrees | [facility] | + + + + + | Calculated T [place] | 69 | degrees | [facility] EKG [...] | + + + + + | [facility] | [address] | [facility] [place] [address] | | + + + + + in this encounter Visit Diagnoses Not on filein this encounter
--- OUTSIDE RECORDS SUMMARY | ~2018-07-13 | XMS | Clinical Summary ---
Demographics + + + | Address | [address] | | | [place] [address] | + + + | Home Phone | | + + + | Preferred Language | Unknown | + + + | Marital Status | Single | + + + | Advent Affiliation | NON | + + + [...] Team Providers + +------+ + | Care Health Science Specialist Name | Role | Phone | + +------+ + | Oxana Nye | PP | Unavailable | + +------+ + Source Comments RAD[facility] is fully live [facility] and [facility] Allergies + + + + + + [...] | Medica | [phone] | [address] | | | RE A & | | re | [phone] | [place] [address] | | | B | | | | | + +--------+ +--------+ + + | [employer] | AARP | xxxxxxxxxx | Indemn | +- | [phone] | | RETIRED PEOPLE | | | ity | 2008 | [place] [address] | + +--------+ +--------+ + + + +--------+ +--------+ + + | Guarantor Name | Accoun | Relation to | Date | Phone | Billing Address | | | t Type | Patient | of | | | | | | | | | | + +--------+ +--------+ + + | YU HARMON | Person | Self [birth year] | Home: | [address] | | [place] | al/Benji | | 1945 | [phone] | [address], [place] | | | jose | | | [phone] | [phone] | + +--------+ +--------+ + +
--- OUTSIDE RECORDS SUMMARY | ~2018-07-13 | XMS | Encounter Summary ---
Demographics + + + | Address | [address] | | | [place] [address] | + + + | Home Phone | | + + + | Preferred Language | Unknown | + + + | Marital Status | | + + + | Muslim Affiliation | 1013 | + + + | Race | Unknown | + + + | Ethnic Group | Unknown | + + + Author + + + | Author | [facility] | + + + | Organization | [facility] | + + + | Address | [...] + +------+ + | Care Director Of Operations Home Health Name | Role | Phone | + +------+ + | Wendi Aiken PA-C | PCP | | + +------+ + Reason for Referral Physical Medicine (Routine) + + + + + + + | Status | Reason | Specialty | Diagnoses / | Referred By | Referred To | | | | | Procedures | Contact | Contact | + + + + + + + | Authorized | Specialty | Physical | Diagnoses | [place], | [place] | | | Services | Therapy | Pain of | DO Alfredo | [place] | | | Required | | both hip | [address] | Outpatient | | | | | joints | ST | Physican | | | | | Lumbar pain | [place], [place] | Therapy [address] | | | | | | [address] | [address] | | | | | | Phone: | WAY | | | | | | [phone] | [place] | | | | | | Fax: | [address] | | | | | | [phone] | Phone: | | | | | | | [phone] | | | | | | | Fax: | | | | | | | [phone] | + + + + + + + Encounter Details +--------+ + + + + | Date | Type | Department | Care Team | Description | +--------+ + + + + | 06/26/ | Telephone | [facility] | Jennifer Hicks, ANATOMICAL EMBALMER | | | 2017 | | [facility] | | | | | | MEDICINE [facility] | | | | | | PAIN [address] | | | | | | [place] | | | | | | [address] | | | | | | [phone] | | | +--------+ + + + [...] 2018 | Visit | | [address] [facility] | | | | | | [place] [address] | | | | | | [phone] | | | | | | | | +--------+---------+ + + + + +--------+ + + | Name | Priori | Associated Diagnoses | Order Schedule | | | ty | | | + +--------+ + + | Ambulatory referral to Physical | Routin | Pain of both hip | Ordered: 06/26/2018 | | Therapy, Eval and Treat | e | joints Lumbar pain | | + +--------+ + + as of this encounter Visit Diagnoses + + | Diagnosis | + + | Pain of both hip joints - Primary | + + | Lumbar pain | + + | Lumbago | + +"
--- OUTSIDE RECORDS SUMMARY | ~2018-07-13 | XMS | Clinical Summary ---
Demographics + + + | Address | [address] | | | [place] [address] | + + + | Home Phone | | + + + | Preferred Language | Unknown | + + + | Marital Status | | + + + | Sabianism Affiliation | [phone] | + + + [...] Team Providers + +------+ + | Care Osteopathic Neurologist Name | Role | Phone | + +------+ + | Wendi Rivers | PP | | + +------+ + [...] +-------+---------+------+------+-------+ | Loratadine 10 MG | Take 10 mg by mouth | | | | | Activ | | CAPS | Daily as needed. | | | | | e | + + +-------+---------+------+------+-------+ | ibuprofen | [...] Activ | | HYDROcodone-acetamin | mouth every 8 hours | | | | | e | | ophen (NORCO) 10-325 | as needed for Pain. | | | | | | | mg per tablet | | | | | | | + + +-------+---------+------+------+-------+ | levothyroxine | Take 100 mcg by | | | | | Activ | | (SYNTHROID) 100 mcg | mouth every morning | | | | | e | | tablet | (before breakfast). | | | | | | + + +-------+---------+------+------+-------+ | rOPINIRole | Take 4 mg by mouth 4 | | | | | Activ | | (REQUIP) 4 mg tablet | times daily. | | | | | e | + + +-------+---------+------+------+-------+ | fentaNYL | Place 1 patch onto | | | | | Activ | | (DURAGESIC) 25 | the skin every 72 | | | | | e | | mcg/hr | hours. | | | | | | + + +-------+---------+------+------+-------+ | clonazePAM | Take 1-2 mg by mouth | | | | | Activ | | (KLONOPIN) 1 mg | nightly as needed | | | | | e | | tablet | for Anxiety. | | | | | | + + +-------+---------+------+------+-------+ | Ropinirole HCl | Take 4 mg by mouth 4 | | | 11/0 | 08/2 | Disco | | (REQUIP XL) 6 MG | times daily. | | | 1/20 | 5/20 | ntinu | | TB24 | | | | 11 | 18 | ed | + + +-------+---------+------+------+-------+ | clonazepam | Take 1 mg by mouth | | | | 08/2 | Disco | | (KLONOPIN) 2 MG | Twice daily as | | | | 5/20 | ntinu | | tablet | needed. | | | | 18 | ed | + + +-------+---------+------+------+-------+ | ranitidine | Take 150 mg by mouth | | | | 08/2 | Disco | | (ZANTAC) 150 MG | as needed. | | | | 5/20 | ntinu | | capsule | | | | | 18 | ed | + + +-------+---------+------+------+-------+ | methocarbamol | Take 750 mg by mouth | | | | 08/2 | Disco | | (ROBAXIN) 750 mg | 4 times daily. | | | | 5/20 | ntinu | | tablet | | | | | 18 | ed | + + +-------+---------+------+------+-------+ | mirabegron | Take 25 mg by mouth | | | | 08/2 | Disco | | (MYRBETRIQ) 25 mg ER | Daily. | | | | 5/20 | ntinu | | tablet | | | | | 18 | ed | + + +-------+---------+------+------+-------+ | | Apply 2 g topically | | | | 08/2 | Disco | | LIDOCAINE-PRILOCAINE | 3 times daily. | | | | 5/20 | ntinu | | EX | | | | | 18 | ed | + + +-------+---------+------+------+-------+ | acetaminophen | Take 500 mg by mouth | | | | 08/2 | Disco | | (TYLENOL) 500 mg | every 6 hours as | | | | 5/20 | ntinu | | tablet | needed for Pain. | | | | 18 | ed | + + +-------+---------+------+------+-------+ | lidocaine | Apply up to 3 | 30 | 0 | 06/0 | 08/2 | Disco | | (LIDODERM) 5% patch | patches TOPICALLY at | patch | | 4/20 | 5/20 | ntinu | | | one time, for up to | | | 18 | 18 | ed | | | 12 hours within a [...] + +---+ + + | Overview: LOUISE [id number] Decision | + + + +---+ | [...] disc disease), lumbar | | + +---+ Encounters +--------+ + + + + | Date | Type | Specialty | Care Team | Description | +--------+ + + + + | 06/23/ | Emergency | | [facility] [place] | Suicide ideation | | 2017 - | | | MD Jaxson Page, | (Primary Dx); | | | | | Pelon Shane MD | Borderline | | 06/25/ | | | | personality disorder | | 2017 | | | | | +--------+ + + + + | 05/10/ | Ancillary | | Provider, | | | 2018 | Orders | | MD Hemalatha | | +--------+ + + + + | 05/10/ | Procedure | | | | | 2018 | Pass | | | | +--------+ + + + + | 05/09/ | Imaging | | Provider, | | | 2017 | Exam | | MD Hemalatha | | +--------+ + + + + | 05/09/ | Telephone | | Nick Martinez, | Results, Imaging | | 2017 | | | PA-C | | +--------+ + + + + | 04/17/ | Telephone | | Nick Martinez, | Other (Back Brace) | | 2017 | | | PA-C | | +--------+ + + + + | 04/12/ | Orders Only | | Nick Martinez, | Closed compression | 2017 | | | PA-C | fracture of fifth | | | | | | lumbar vertebra, | | | | | | sequela (Primary | | | | | | Dx); Lumbar | | | | | | radiculopathy | +--------+ + + + + from Last 3 Months Family History + + +--------+ + | [...] + + | Brother | | | NC | | | | (Age | | [...] | | + +--------+ + + | Phong | Giuseppe | Alive | | + +--------+ + + | Phong | Destiny | Alive | | + [...] + | Blood Pressure | 110/66 | 06/25/2018650 PDT | + + + + | Pulse | 80 | 06/25/20181310 PDT | + + + + | Temperature | 36.7 C (98.1 F) | 06/25/2018650 PDT | + + + + | Respiratory Rate | 18 | 06/25/20181310 PDT | + + + + | Oxygen Saturation | 98% | 06/25/20181310 PDT | + + + + | Inhaled Oxygen | - | - | | Concentration | | | + + + + | Weight | 54.4 kg (120 lb) | 06/23/20181952 PDT | + + + + | Height | 154.9 cm (5' 1") | 06/23/20181952 PDT | + + + + | Body Mass Index | 22.67 | 06/23/20181952 PDT | + + + + Plan [...] | + + + + + | Colorectal Cancer | | 10/31/2009 | | | Screening | 0 | | | | (Colonoscopy) | | | | + + + + + Procedures + +--------+ + + + | Procedure Name | Priori | Date/Time | Associated Diagnosis | Comments | | | ty | | | | + +--------+ + + + | POC GLUCOSE | Routin | 06/24/2018 | | Results for this | | | e | 0725 PDT | | procedure are in the | | | | | | results section. | + +--------+ + + + | TSH | STAT | 06/23/2018 | | Results for this | | | | 2130 PDT | | procedure are in the | | | | | | results section. | + +--------+ + + + | SALICYLATE LEVEL | STAT | 06/23/2018 | | Results for this | | | | 2130 PDT | | procedure are in the | | | | | | results section. | + +--------+ + + + | ALCOHOL | STAT | 06/23/2018 | | Results for this | | | | 2130 PDT | | procedure are in the | | | | | | results section. | + +--------+ + + + | COMPREHENSIVE | STAT | 06/23/2018 | | Results for this | | METABOLIC PANEL | | 2130 PDT | | procedure are in the | | | | | | results section. | + +--------+ + + + | CBC WITH | STAT | 06/23/2018 | | Results for this | | DIFFERENTIAL | | 2130 PDT | | procedure are in the | | | | | | results section. | + +--------+ + + + | ACETAMINOPHEN LEVEL | STAT | 06/23/2018 | | Results for this | | | | 2130 PDT | | procedure are in the | | | | | | results section. | + +--------+ + + + | URINALYSIS WITH | STAT | 06/23/2018 | | Results for this | | MICROSCOPIC WITH | | 2040 PDT | | procedure are in the | | CULTURE IF INDICATED | | | | results section. | + +--------+ + + + | DRUGS OF ABUSE, | STAT | 06/23/2018 | | Results for this | | SCREEN, URINE | | 0 PDT | | procedure are in the | | | | | | results section. | + +--------+ + + + | ED INFORMATION | Routin | 06/23/2018 | | | | EXCHANGE | e | 1949 PDT | | | + +--------+ + + + +---+--------+ | | | | | Proced | | | ure | | | Note - | | | Doug, | | | Lab In | | | | | | Hlseve | | | n - | | | 06/23/ | | | 2017 | | | 1950 | | | PDT | | | Format | | | ting | | | of | | | this | | | note | | | may be | | | | | | differ | | | ent | | | from | | | the | | | origin | | | al.DOUG | | | E19:[id number] | | | KORI | | | | | | [id number] | | | [id number] | | | Securi | | | [...] | | | Dates | | | RIVERS, | | | | | | WENDI, [...] | | | Y[place] | | | [place], | | | [place] | | | [...] | | | St. | | | [place] | | | y | | | [...] | | | months | | | .Patie | | | nt | | | requir | | | [...] | | | condit | | | ions.I | | | f | | | patien | | | [...] | | | [phone] | | | [phone] | | | .These | | | [...] | | | St. | | | [place] | | | y H. | | [...] | | | St. | | | [place] | | | y H. | | [...] | | | St. | | | [place] | | | y H. | | [...] | | | St. | | | [place] | | | y H. | | [...] | | | St. | | | [place] | | | y H. | | [...] | | | St. | | | [place] | | | y H. | | [...] | | | St. | | | [place] | | | y | | | [...] | | | WENDI | | | RIVERS | | | 2 20 | | | 2018-0 | | | 7-13 | | | HYDROC | | | ODONE- | | | ACETAM | | | IN | | | 5-325 | | | MG 10 | | | WENDI | | | RIVERS | | | 2 10 | | | 2018-0 | | | 7-05 | | | FENTAN | | | YL 25 | | | MCG/HR | | | PATCH | | | 10 | | | WENDI | | | RIVERS | | | 2 60 | | | 2018-0 | | | 6-19 | | | HYDROC | | | ODONE- | | | ACETAM | | | IN | | | 10-325 | | | MG 40 | | | WENDI | | | RIVERS | | | 2 40 | | [...] | | | WENDI | | | RIVERS | | | 2 28.8 | | [...] | | | WENDI | | | RIVERS | | | 2 40 | | | 2018-0 | | | 6-05 | | | HYDROC | | | ODONE- | | | ACETAM | | | IN | | | 10-325 | | | MG 20 | | | WENDI | | | RIVERS | | | 2 40 | | | 2018-0 | | | 5-30 | | | HYDROC | | | ODONE- | | | ACETAM | | | IN | | | 10-325 | | | MG 21 | | | WENDI | | | RIVERS | | | 2 30 | | | 2018-0 | | | 5-26 | | | HYDROC | | | ODONE- | | | ACETAM | | | IN | | | 5-325 | | | MG 10 | | | MICHAE | | | L | | | 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 | | | 2018 | | | [...] | [email or web address] | | | | +---+--------+ + +--------+ +---+ + | MRI LUMBAR SPINE WO | Routin | 05/09/2018 | | Results for this | | CONTRAST | e | 1125 PDT | | procedure are in the | | | | | | results section. | + +--------+ +---+ + | IMAGING REPORT - | | 05/09/2018 | | Results for this | | EXTERNAL SCAN | | 0000 PDT | | procedure are in the | | | | | | results section. | + +--------+ +---+ + from Last 3 Months Results POC Glucose (06/24/2018 0725) + +-------+ + + | Component | Value | Ref Range | Performed At | + +-------+ + + | Glucose, POC | 94 | 70 - 110 mg/dL | [facility] | | | | [facility] | + +-------+ + + + + | Specimen | + + | Blood | + + + + + + + | Performing | Address | City/State/Zipcode | Phone Number | | Organization | | | | + + + + + | [facility] | [address] | [place] [address] | [phone] | | [facility] | | | | + + + + + CBC with Differential (06/23/20182129) + + + + + | Component | Value | Ref Range | Performed At | + + + + + | WBC | 6.2 | 4.3 - 10.4 K/uL | [facility] | | | | [facility] | + + + + + | RBC | 3.89 (L) | 4.12 - 5.30 M/uL | [facility] | | | [facility] | + + + + + | Hgb | 11.1 (L) | 12.4 - 15.7 g/dL | [facility] | | | [facility] | + + + + + | Hct | 34.4 (L) | 37.7 - 47.0 % | [facility] | + + + + + | MCV | 88.4 | 82.0 - 97.0 fL | [facility] | + + + + + | MCH | 28.5 | 27.1 - 32.3 pg | [facility] | [facility] | + + + + + | MCHC | 32.3 | 32.0 - 36.9 g/dL | [facility] | | [facility] | + + + + + | RDW-CV | 13.2 | 0.0 - 17.0 % | [facility] | | [facility] | + + + + + | Platelet Count | 283 | 150 - 450 K/uL | [facility] | [facility] | + + + + + | MPV | 9.5 | 9.4 - 12.3 fL | [facility] | [facility] | + + + + + | % Neutrophils | 52.7 | 42.0 - 76.0 % | [facility] | | [facility] | + + + + + | % Lymphocytes | 37.7 | 20.0 - 40.0 % | [facility] | | [facility] | + + + + + | % Monocytes | 7.7 | 3.0 - 13.0 % | [facility] | | | | [facility] | + + + + + | % Eosinophils | 1.1 | 0.0 - 7.0 % | [facility] | | | | | [facility] | + + + + + | % Basophils | 0.5 | 0.0 - 2.0 % | [facility] | [facility] | | | | [facility] | + + + + + | % Immature | 0.3 | 0.0 - 0.5 % | [facility] | | granulocytes | | | [facility]ITAL | | | | | [facility] | + + + + + | Absolute Neutrophils | 3.27 | 2.50 - 8.50 K/uL | [facility] | | | | | [facility] | + + + + + | Absolute Lymphocytes | 2.34 | 1.00 - 3.80 K/uL | [facility] | [facility] | | | | | [facility] | + + + + + | Absolute Monocytes | 0.48 | 0.00 - 0.80 K/uL | [facility] | | | | | [facility] | + + + + + | Absolute Eosinophils | 0.07 | 0.00 - 0.70 K/uL | [facility] | | | | | [facility] | + + + + + | Absolute Basophils | 0.03 | 0.00 - 0.20 K/uL | [facility] | | | | [facility] | + + + + + | Absolute Imm. | 0.02 | 0.00 - 0.15 K/UL | [facility] | | Granulocytes | | | [facility] | | | | | [facility] | + + + + + | nRBC | 0 | 0 - 0 per 100 WBC's | [facility] | [facility] | | | | | [facility] | + + + + + | NRBC ABS | 0.00 | 0.00 - 0.01 K/UL | [facility] | | | | [facility] | | | | | [facility] | + + + + + + + | Specimen | + + | Blood | + + + + + + + | Performing | Address | City/State/Zipcode | Phone Number | | Organization | | | | + + + + + | [facility] | [address] | [place] [address] | [phone] | | [facility] | | | | + + + + + TSH (06/23/20182129) + +-------+ + + | Component | Value | Ref Range | Performed At | + +-------+ + + | TSH | 1.92 | 0.36 - 3.74 uIU/mL | [facility] | | | | | [facility] | | | | | [facility] | + +-------+ + + + + | Specimen | + + | Blood | + + + + + + + | Performing | Address | City/State/Zipcode | Phone Number | | Organization | | | | + + + + + | [facility] | [address] | [place] [address] | [phone] | | [facility] | | | | + + + + + Ethanol (06/23/20182129) + +-------+ + + | Component | Value | Ref Range | Performed At | + +-------+ + + | ALCOHOL, | <3 | 0 - 10 mg/dL | [facility] | | SERUM/PLASMA | | | [facility] | | | | | [facility] | + +-------+ + + + + | Specimen | + + | Blood | + + + + + + + | Performing | Address | City/State/Zipcode | Phone Number | | Organization | | | | + + + + + | [facility] | [address] | [place] [address] | [phone] | | [facility] | | | | + + + + + Acetaminophen Level (06/23/2018 2130) + +---------+ + + | Component | Value | Ref Range | Performed At | + +---------+ + + | Acetaminophen Level | <=2 (L) | 10 - 20 ug/mL | [facility] | | | | | [facility] | | | | | [facility] | + +---------+ + + + + | Specimen | [...] + + | [facility] | [address] | [place] [address] | [phone] | | [facility] | | | | + + + + + Salicylate Level (06/23/20182129) + + + + + | Component | Value | Ref Range | Performed At | + + + + + | Salicylate Level | 1.1 (L)Comment: | 3.0 - 20.0 mg/dL | [facility] | | | Reference Range: 2.0 - | | [facility] | | | 10.0 | | LAB[facility] | | | mg/dLAntipyretic/Analges | | | | | ic10.0 - 25.0 | | | | | mg/dLAnti-Inflammatory> | | | | | 30.0 mg/dLPotentially | | | | | Toxic | | | + + + + + + + | Specimen | + + | Blood | + + + + + + + | Performing | Address | City/State/Zipcode | Phone Number | | Organization | | | | + + + + + | [facility] | [address] | [place] [address] | [phone] | | [facility] | | | | + + + + + Comprehensive Metabolic Panel (06/23/20182129) + + + + + | Component | Value | Ref Range | Performed At | + + + + + | NA | 140 | 132 - 143 mmol/L | [facility] | | | | | [facility] | + + + + + | K | 4.1 | 3.3 - 4.9 mmol/L | [facility] | [facility] | | | | | [facility] | + + + + + | CL | 106 | 95 - 108 mmol/L | [facility] | | | | | [facility] | + + + + + | CO2 | 28 | 23 - 34 mmol/L | [facility] | [facility] | | | | | [facility] | + + + + + | ANION GAP | 6 (L) | 7 - 16 mmol/L | [facility] | | | | | [facility] | + + + + + | GLUCOSE | 89 | 70 - 110 mg/dL | [facility] | | | | | [facility] | + + + + + | BUN | 16 | 5 - 26 mg/dL | [facility] | [facility] | | | | | [facility] | + + + + + | Creatinine, | 0.84 | 0.60 - 1.30 mg/dL | [facility] | | Serum/Plasma | | | [facility] | | | | | [facility] | + + + + + | eGFR if not | >60Comment: GLOMERULAR | >=60 mL/min/1.73m2 | [facility] | | [facility] | FILTRATION | | [facility]ITAL | | | RATE,ESTIMATED mL/min | | LABORATORY | | | /1.30g1Gbew than 60 | | | | | Chronic kidney | | | | | disease,if found over a | | | | | 3-month period.Less than | | | | | 15 Kidney | | | | | failureFor | | | | | Americans,multiply the | | | | | calculated GFR by 1.21. | | | | | | | | + + + + + | CALCIUM | 8.3 | 8.3 - 10.0 mg/dL | [facility] | | | | | [facility] | + + + + + | ALBUMIN | 3.5 | 3.0 - 4.5 g/dL | [facility] | [facility] | | | | | [facility] | + + + + + | Bilirubin Total | 0.2 | 0.0 - 1.2 mg/dL | [facility] | | [facility] | | | | | [facility] | + + + + + | Total protein | 6.3 (L) | 6.6 - 8.5 g/dL | [facility] | [facility] | | | | | [facility] | + + + + + | AST | 19 | 0 - 38 U/L | [facility] | [facility] | | | | | [facility] | + + + + + | ALT | 25 | 14 - 59 U/L | [facility] | [facility] | | | | | [facility] | + + + + + | ALK PHOS | 74 | 46 - 116 U/L | [facility] | | | | | [facility] | + + + + + | GLOBULIN | 2.8 | g/dL | [facility] | [facility] | | | | | [facility] | + + + + + | Albumin/Globulin | 1.3 | | [facility] | | ratio | | | [facility] | | | | | [facility] | + + + + + | BUN/CREA | 19.0 | 7.0 - 24.0 | [facility] | | [facility] | | | | | [facility] | + + + + + + + | Specimen | + + | Blood | + + + + + + + | Performing | Address | City/State/Zipcode | Phone Number | | Organization | | | | + + + + + | [facility] | [address] | [place] [address] | [phone] | | [facility] | | | | + + + + + Urinalysis with Microscopic with Culture if Indicated (06/23/20182039) + + + + + | Component | Value | Ref Range | Performed At | + + + + + | COLOR | Yellow | Pale Yellow, Yellow | [facility] | [facility] | | | | | [facility] | + + + + + | CLARITY | Clear | Clear | [facility] | | | | | [facility] | + + + + + | PH UA | 7.0 | 5.0 - 7.0 | [facility] | | | | | [facility] | + + + + + | Specific Ray | 1.010 | 1.003 - 1.030 | [facility] | | | | | [facility] | + + + + + | PROTEIN UA | Negative | Negative | [facility] | | | | | [facility] | + + + + + | BLOOD UA | Negative | Negative | [facility] | | | | | [facility] | + + + + + | GLUCOSE UA | Normal | Normal | [facility] | [facility] | [facility] | | | | | [facility] | + + + + + | KETONES UA | Negative | Negative | [facility] | | | | | [facility] | + + + + + | BILIRUBIN UA | Negative | Negative | [facility] | | | | | [facility] | + + + + + | NITRITE UA | Negative | Negative | [facility] | | | | | [facility] | + + + + + | LEUKOCYTES ESTERASE | 25 tara/uL (A) | Negative | [facility] | | U[facility] | | | [facility] | | | | | [facility] | + + + + + | UROBILINOGEN UA | Normal | 0-1.0 mg/dL | [facility] | [facility] | | | | | [facility] | + + + + + | WBC UA | 0-2 | <=5 /HPF | [facility] | [facility] | | | | | [facility] | + + + + + | RBC UA | None Seen | <=5 /HPF | [facility] | | | | | [facility] | + + + + + | SQUAMOUS EPITHELIAL | Few (A) | None Seen /LPF | [facility] | | [facility] | | | [facility] | | | | | [facility] | + + + + + | BACTERIA UA | Trace (A) | None Seen /HPF | [facility] | [facility] | | | | | [facility] | + + + + + | URINE COMMENT | Urine Culture Not | | [facility] | | | Indicated | | [facility] | | | | | [facility] | + + + + + + + | Specimen | + + | Urine - Urine, Clean | | Catch | + + + + + + + | Performing | Address | City/State/Zipcode | Phone Number | | Organization | | | | + + + + + | [facility] | [address] | [place] [address] | [phone] | | [facility] | | | | + + + + + Drugs of Abuse, Screen, Urine (06/23/20182039) + + + + + | Component | Value | Ref Range | Performed At | + + + + + | Cannabinoids Screen, | Negative | Negative | [facility] | | Urine | | | [facility] | | | | | [facility] | + + + + + | Cocaine Screen, | Negative | Negative | [facility] | | Urine | | | [facility] | | | | | [facility] | + + + + + | Phencyclidine | Negative | Negative | [facility] | | Screen, Urine | | | [facility]OS[facility]ITAL | | | | | [facility] | + + + + + | Methamphetamine | Negative | Negative | [facility] | | Screen, Urine | | | [facility] | | | | | [facility] | + + + + + | Opiates Screen, | Negative | Negative | [facility] | | Urine | | | [facility] | | | | | [facility] | + + + + + | Amphetamine Screen, | Negative | Negative | [facility] | | Urine | | | [facility] | | | | | [facility] | + + + + + | Benzodiazepines, | Negative | Negative | [facility] | | Urine, Screen | | | [facility]OS[facility] | | | | | [facility] | + + + + + | TCA | Negative | Negative | [facility] | | | | | [facility] | | | | | [facility] | + + + + + | Methadone Screen, | Negative | Negative | [facility] | | Urine | | | [facility]ITAL | | | | | LABORATORY | + + + + + | Barbiturates Screen, | Negative | Negative | [facility] | | Urine | | | [facility]OSPITAL | | | | | LABORATORY | + + + + + | Oxycodone Screen, | Negative | Negative | [facility] | | Urine | | | HOSPITAL | | | | | LABORATORY | + + + + + | Propoxyphene Screen, | Negative | Negative | [facility] | | Urine | | | HOSPITAL | | | | | LABORATORY | + + + + + | Buprenorphine | Negative | Negative | [facility] | | screen, Urine | | | HOSPITAL | | | | | LABORATORY | + + + + + + + | Specimen | + + | Urine - Urine, Clean | | Catch | + + + + + | Narrative | Performed At | + + + | Qualitative drug screen intended for emergency medical use only. Not | [facility] | | intended for legal purposes. Chain of Custody not maintained. | HOSPITAL | | Confirmation of Positive results must be ordered by the attending | LABORATORY | | physician. Bxlw-lyu-jmmulsk drugs may cross react with some methods. | | | Call the laboratory if further information is needed. | | | AMPHETAMINE 500 ng/mL | | | BARBITURATES 200 ng/mL | | | BENZODIAZEPINES 150 ng/mL | | | BUPRENORPHINE 10 ng/mL | | | COCAINE 150 ng/mL | | | METHAMPHETAMINES 500 ng/mL | | | METHADONE 200 ng/mL | | | OPIATES 100 ng/mL | | | OXYCODONE 100 ng/mL | | | PHENCYCLIDINE 25 ng/mL | | | PROPOXYPHENE 300 ng/mL | | | CANNABINOIDS 50 ng/mL TRICYCLIC | | | ANTIDEPRES 300 ng/mL | | + + + + + + + + | Performing | Address | City/State[facility] | Phone Number | | Organization | | | | + + + + + | [facility] | [address] | [place] [address] | [phone] | | [facility] | | | | + + + + + MRI Lumbar Spine wo Contrast (05/09/2018 112) + + + | Narrative | Performed [...] | | | + +---------+ + + IMAGING REPORT - EXTERNAL SCAN (05/09/2018) + + + | Narrative | Performed At | + + + | Ordered by an | | | unspecified provider. | | + + + from Last 3 Months Insurance + +--------+ +--------+ +---------+ | Payer | Benefi | Subscriber | Type | Phone | Address | | | t Plan | ID | | | | | | / | | | | | | | Group | | | | | + +--------+ +--------+ +---------+ | INDIVIDUAL ASSURANCE | INDIVI | [id number] | Indemn | | | | COMPANY | DUAL | | ity | | | | | ASSURA | | | | | | | [place] | | | | | | | MDCR | | | | | | | SUPPL | | | | | + +--------+ +--------+ +---------+ | MEDICARE | MEDICA | [id number] | Medica | +- | | | | RE | | re | [id number] | | | | PART A | | | | | | | AND B | | | | | + +--------+ +--------+ +---------+ | MEDICARE | MEDICA | [id number] | Medica | +- | | | | RE | | re | [id number] | | | | PART A | | | | | | | AND B | | | | | + +--------+ +--------+ +---------+ | MEDICARE | MEDICA | [id number] | Medica | +- | | | | RE | | re | [phone] | | | | PART A | | | | | | | AND B | | | | | + +--------+ +--------+ +---------+ | INDIVIDUAL ASSURANCE | INDIVI | [id number] | Indemn | | | | COMPANY | DUAL | | ity | | | | | ASSURA | | | | | | | [place] | | | | | | | MDCR | | | | | | | SUPPL | | | | | + +--------+ +--------+ +---------+ | INDIVIDUAL ASSURANCE | INDIVI | [id number] | Indemn | | | | COMPANY [...] [address] | | JOSEPH JESSI | al/Fam | | 1945 | [phone] | [address] [place], [place] | | | jose | | | [phone] | [phone] | + +--------+ +--------+ + + | YU HARMON | Person | Self [birth year] | Home: | [address] | | JOSEPH JESSI | al/Fam | | 1945 | [phone] | [address] [place], [place] | | | jose | | | [phone] | [phone] | + +--------+ +--------+ + + | YU HARMON | Person | Self [birth year] | Home: | [address] | | JOSEPH JESSI | al/Fam | | 1945 | [phone] | [address] [place], [place] | | | jose | | | [phone] | [phone] | + +--------+ +--------+ + +
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
--- OUTSIDE RECORDS SUMMARY | ~2018-07-13 | XMS | Encounter Summary ---
Demographics + + + | Address | [address] | | | [place] [address] | + + + | Home Phone | | + + + | Preferred Language | Unknown | + + + | Marital Status | | + + + | Hinduism Affiliation | 1041 | + + + | Race | Unknown | + + + | Ethnic Group | Unknown | + + + Author + + + | Author | [facility] | | | and Priteshana | + + + | Organization | [facility] | | [...] Team Providers + +------+ + | Care Wood Web Weaving Machine Operator Name | Role | Phone [...] + + | 04/17/ | Telephone | [facility] | Nick Martinez, | Yehuda (Back Brace) | | 2017 | | PHYSIATRY [address] | PA-C [address] | | | | | [place], | [address] [place] | | | | | [place] [address] | [place] [address] | | | | | [phone] | [phone] | | | | | | | [...]
--- OUTSIDE RECORDS SUMMARY | ~2018-07-13 | XMS | Encounter Summary ---
Demographics + + + | Address | [address] | | | [place] [address] | + + + | Home Phone | | + + + | Preferred Language | Unknown | + + + | Marital Status | | + + + | Episcopalian Affiliation | 1013 | + + + | Race | Unknown | + + + | Ethnic Group | Unknown | + + + Author + + + | Author | [facility] | + + + | Organization | [facility] | + + + | Address | [...] Team Providers + +------+ + | Care Fixed Wing Aircraft Flight Engineer Name | Role | Phone | [...] + + | 05/26/ | Ancillary | [facility] | See, Medical | Pain | | 2018 | [facility] | [facility] | Record | | | | | [address] [facility] | | | | | | [place] [address] | | | | | | [phone] | | | +--------+ + + + [...] Visit | | [address] [facility] | | | | | | [place] [address] | | | | | | [phone] | | | | | | | [...] | + + + + + | [facility] | [address] | [place] [address] | | + + + + + MRI lumbar spine without contrast (04/05/2018 2:55 AM) + + + | Narrative | Performed At | + + + | This is a non-reportable procedure without a radiologist report and | [facility] | | is used for image storage only | RADIOLOGY | + + + + + + + + | Performing | Address | City/State/Zipcode | Phone Number | | Organization | | | | + + + + + | [facility] | [address] | [place] [address] | | + + + + + in this encounter Visit Diagnoses + + | Diagnosis | + + | Pain | + + | Generalized pain | + +"
--- OUTSIDE RECORDS SUMMARY | ~2018-07-13 | XMS | Encounter Summary ---
Demographics + + + | Address | [address] | | | [place] [address] | + + + | Home Phone | | + + + | Preferred Language | Unknown | + + + | Marital Status | | + + + | Zoroastrian Affiliation | 1013 | + + + | Race | Unknown | + + + | Ethnic Group | Unknown | + + + Author + + + | Author | [facility] | + + + | Organization | [facility] | + + + | Address | [...] Team Providers + +------+ + | Care Project Assistant Name | Role | Phone | + +------+ + | Wendi Aiken PA-C | PCP | | + +------+ + Encounter Details +--------+ + + + + | Date | Type | Department | Care Team | Description | +--------+ + + + + | 06/20/ | Telephone | [facility] | Jennifer Hicks CMA | | | 2017 | | [facility] | | | | | | MEDICINE RADHA | | | | | | PAIN [address] | | | | | | [place] | | | | | | [address] | | | | | | [phone] | | | +--------+ + + + [...] | 2017 | Visit | | [address] | | | | | | [place] [address] | | | | | | [phone] | | | | | | | | +--------+---------+ + + + as of this encounter Visit Diagnoses Not on filein this encounter"
--- OUTSIDE RECORDS SUMMARY | ~2018-07-13 | XMS | Encounter Summary ---
Demographics + + + | Address | [address] | | | [place] [address] | + + + | Home Phone | | + + + | Preferred Language | Unknown | + + + | Marital Status | | + + + | Caodaism Affiliation | 1013 | + + + | Race | Unknown | + + + | Ethnic Group | Unknown | + + + Author + + + | Author | [facility] | + + + | Organization | [facility] | + + + | Address | [...] Providers + +------+ + | Care Food Preparation Supervisor Name | Role | Phone | + +------+ + | Wendi Aiken PA-C | PCP | | + +------+ + Encounter Details +--------+ + + + + | Date | Type | Department | Care Team | Description | +--------+ + + + + | 06/13/ | Orders Only | [facility] | Jennifer Hicks, ANIMAL TAXONOMIST | | | 2017 | | [facility] | | | | | | MEDICINE RADHA | | | | | | [address] | | | | | | [place] | | | | | | [address] | | | | | | [phone] | | | +--------+ + + + [...] | | | | | [place] [address] | | | | | | [phone] | | | | | | | | +--------+---------+ + + + as of this encounter Visit Diagnoses Not on filein this encounter"
--- OUTSIDE RECORDS SUMMARY | ~2018-07-13 | XMS | Encounter Summary ---
Demographics + + + | Address | [address] | | | [place] [address] | + + + | Home Phone | | + + + | Preferred Language | Unknown | + + + | Marital Status | | + + + | Hinduism Affiliation | 1041 | + + + | Race | Unknown | + + + | Ethnic Group | Unknown | + + + Author + + + | Author | [facility] | | | and Priteshana | + + + | Organization | [facility] | | [...] Team Providers + +------+ + | Care Glue Mill Operator Name | Role | Phone | [...] + + | 05/09/ | Telephone | [facility] | Nick Martinez, | Results, Imaging | | 2018 | | PHYSIATRY [address] | PA-C [address] | | | | | [place], | [address] [place] | | | | | [place] [address] | [place] [address] | | | | | [phone] | [phone] | | | | | | | [...]
--- OUTSIDE RECORDS SUMMARY | ~2018-07-13 | XMS | Encounter Summary ---
Demographics + + + | Address | [address] | | | [place] [address] | + + + | Home Phone | | + + + | Preferred Language | Unknown | + + + | Marital Status | | + + + | Zoroastrian Affiliation | 1013 | + + + | Race | Unknown | + + + | Ethnic Group | Unknown | + + + Author + + + | Author | [facility] | + + + | Organization | [facility] | + + + | Address | [...] Team Providers + +------+ + | Care Facing Baster Jumpbasting Name | Role | Phone | + +------+ + | Oxana Nye NP | PCP | | + +------+ + Reason for Visit +--------+ + | Reason | Comments | +--------+ + | Other | Request to speak to [place] | +--------+ + Encounter Details +--------+ + + + + | Date | Type | Department | Care Team | Description | +--------+ + + + + | 06/02/ | Telephone | [facility] | Savi Salmon, | Other (Request to | | 2017 | | [facility] | [place] | speak to [place]) | | | | [address] | | | | | | [place] | | | | | | [address] | | | | | | [phone] | | | +--------+ + + + [...] | 2017 | Visit | | [address] [facility] | | | | | | [place] [address] | | | | | | [phone] | | | | | | | | +--------+---------+ + + + as of this encounter Visit Diagnoses Not on filein this encounter"
--- OUTSIDE RECORDS SUMMARY | ~2018-07-13 | XMS | Encounter Summary ---
Demographics + + + | Address | [address] | | | [place] [address] | + + + | Home Phone | | + + + | Preferred Language | Unknown | + + + | Marital Status | | + + + | Roman Catholic Affiliation | 1013 | + + + | Race | Unknown | + + + | Ethnic Group | Unknown | + + + Author + + + | Author | [facility] | + + + | Organization | [facility] | + + + | Address | [...] Providers + +------+ + | Care Change Attendant Name | Role | Phone | [...] | KYPHOPLASTY | | 2018 | | [facility] | [address] | | | | | Operating Room 888 | [place] [address] | | | | | [address] | [phone] | | | | | [place] [address] | | | | | | [phone] | | | +--------+---------+ + + + [...] directed. Remove the small bandages on your to 48hours after the surgery. Don t shower or soak in a bathtub for1 to 2days after the surgery. Use an ice packor bag of frozen peas or something similar wrapped in a thin towel to reduce the swelling and pain around incision sites. Put the ice pack on the area for20 minutes,then remove it [id number]. Repeat as needed. Wear your brace, if you were told to do so by your doctor. And to help stay flexible, be nd as much as the brace allows you to. For the first1 to 2days after the surgery, keep your head raised up when you are lyi ng down. Take short walks. Start by walking [id number] at a time. Then gradually build up yo ur time and distance. Don t drive [id number] after surgery. And never drive while taking [...] healthcare provider Shaking chills Date Last Reviewed: 09/15/201519999334-22[address] [employer] [place], [place] [address]. All righ ts reserved. This information is [...] Apply up to 3 | | | 04/03/ | | | (LIDODERM) 5 % | [...] | 2017 | Visit | | [address] [facility] | | | | | | [place] [address] | | | | | | [phone] | | | | | | | [...] | + + | Reji Pacheco In 06/13/2018 9:40 AM PDT KORI WAYNE-FAWTHROPXR C-ARM [...] [facility] | [address] | [facility] [address] | | + + + + + POCT glucose (06/13/2018 6:47 AM) + + + + + | Component | Value | Ref Range | Performed At | + + + + + | GLUCOSE,POC SCREEN | 70Comment: Testing | 65 - 99 mg/dL | [facility] | | | performed at [facility];[address] | | | | | [address];[place] | | | | | [address] | | | + + + + + + + + + + | Performing | Address | City/State/Zipcode | Phone Number | | Organization | | | | + + + + + | [facility] | [address] | [place] [address] | | + + + + + [...] mLs | | Back | | 0.5% -1:634192 30 mL in lidocaine | | 8 [...] | | tablet 2 tablet, Oral, Once, Christophere | | PDT | | | | [...] | | | | | | | -02/07.If no relief, proceed to | | | [...] | | | | | | | 5-10/10. If no relief, proceed to | | | | | | | option 3., Starting Tue06/13/18 | | | | | | | [facility] | | | | | | + +-------+ +--------+---+---+ +---+---+ | | | +---+---+ + +-------+ +-------+---+------+ | iopamidol (ISOVUE-M 200) 41 % | Given | | 5 mLs | | Back | | intrathecal injection PRN, | | 8 08:21 | | | | | Starting Tue06/13/18 at 0821, | | PDT | | [...]
--- OUTSIDE RECORDS SUMMARY | ~2018-07-13 | XMS | Encounter Summary ---
Demographics + + + | Address | [address] | | | [place] [address] | + + + | Home Phone | | + + + | Preferred Language | Unknown | + + + | Marital Status | | + + + | Mormonism Affiliation | 1013 | + + + | Race | Unknown | + + + | Ethnic Group | Unknown | + + + Author + + + | Author | [facility] | + + + | Organization | [facility] | + + + | Address | [...] Providers + +------+ + | Care Head Of Music Name | Role | Phone | + [...] + + | 05/26/ | Ancillary | [facility] | See, Medical | Pain | | 2018 | [facility] | [facility] | Record | | | | | [address] | | | | | | [place] [address] | | | | | | [phone] | | | +--------+ + + + [...] 2018 | Visit | | [address] [facility] | | | | | | [place] [address] | | | | | | [phone] | | | | | | | [...] | + + + + + | [facility] | [address] | [place] [address] | | + + + + + [...] | [address] | [place] [address] | | + + + + + in this encounter Visit Diagnoses + + | Diagnosis | + + | Pain | + + | Generalized pain | + +"
--- OUTSIDE RECORDS SUMMARY | ~2018-07-13 | XMS | Encounter Summary ---
Demographics + + + | Address | [address] | | | [place] [address] | + + + | Home Phone | | + + + | Preferred Language | Unknown | + + + | Marital Status | | + + + | Judaism Affiliation | 1013 | + + + | Race | Unknown | + + + | Ethnic Group | Unknown | + + + Author + + + | Author | [facility] | + + + | Organization | [facility] | + + + | Address | [...] Providers + +------+ + | Care Children'S Book Author Name | Role | Phone | + +------+ + | Wendi Aiken PA-C | PCP | | + +------+ + Encounter Details +--------+ + + + + | Date | Type | Department | Care Team | Description | +--------+ + + + + | 06/20/ | Telephone | [facility] | Jennifer Hicks CMA | | | 2017 | | [facility] | | | | | | MEDICINE RADHA | | | | | | PAIN [address] | | | | | | [place] | | | | | | [address] | | | | | | [phone] | | | +--------+ + + + [...] | | | | | [place] [address] | | | | | | [phone] | | | | | | | | +--------+---------+ + + + as of this encounter Visit Diagnoses Not on filein this encounter"
--- OUTSIDE RECORDS SUMMARY | ~2018-07-13 | XMS | Encounter Summary ---
Demographics + + + | Address | [address] | | | [place] [address] | + + + | Home Phone [...] Providers + +------+ + | Care Head Operator Name | Role | Phone | [...] | | | | | [place] | [place] [address] | [address] | | | | | Lumbar | Phone: | Phone: | | | | | radiculopath | [phone] | [phone] | | | | | y | Fax: | Fax: | | | | | Procedures | [phone] | [phone] | | | | | HIM 04/17/18 [...] fracture of fifth | | | | [place], | [address] [place] | lumbar vertebra, | | | | [place] [address] | [place] [address] | sequela (Primary | | | | [phone] | [phone] | Dx); Lumbar | | | | [...] +--------+ + + | AMB REFERRAL TO [facility] | Routin | Closed Compression | [...]
--- OUTSIDE RECORDS SUMMARY | ~2018-07-13 | XMS | Encounter Summary ---
Demographics + + + | Address | [address] | | | [place] [address] | + + + | Home Phone | | + + + | Preferred Language | Unknown | + + + | Marital Status | | + + + | Evangelical Affiliation | 1013 | + + + | Race | Unknown | + + + | Ethnic Group | Unknown | + + + Author + + + | Author | [facility] | + + + | Organization | [facility] | + + + | Address | [...] Team Providers + +------+ + | Care Jewelry Dipper Name | Role | Phone | + [...] + + | 06/07/ | Telephone | [facility] | Jennifer Hicks, STAIN REMOVER | Other (questions ) | | 2017 | | [facility] | | | | | | MEDICINE RADHA | | | | | | [address] [facility] | | | | | | [place] | | | | | | [address] | | | | | | [phone] | | | +--------+ + + + [...] | 2017 | Visit | | [address] [facility] | | | | | | [place] [address] | | | | | | [phone] | | | | | | | | +--------+---------+ + + + as of this encounter Visit Diagnoses Not on filein this encounter"
--- OUTSIDE RECORDS SUMMARY | ~2018-07-13 | XMS | Encounter Summary ---
Demographics + + + | Address | [address] | | | [place] [address] | + + + | Home Phone | | + + + | Preferred Language | Unknown | + + + | Marital Status | | + + + | Methodist Affiliation | 1041 | + + + [...] Team Providers + +------+ + | Care Beverage Host Name | Role | Phone | + [...] IMAGING | | | | | | [phone] | | | +--------+ + + + [...]
--- OUTSIDE RECORDS SUMMARY | ~2018-07-13 | XMS | Encounter Summary ---
Demographics + + + | Address | [address] | | | [place] [address] | + + + | Home Phone | | + + + | Preferred Language | Unknown | + + + | Marital Status | | + + + | Islam Affiliation | 1013 | + + + | Race | Unknown | + + + | Ethnic Group | Unknown | + + + Author + + + | Author | [facility] | + + + | Organization | [facility] | + + + | Address | [...] Providers + +------+ + | Care Cnc Service Engineer Name | Role | Phone | + +------+ + | Wendi Aiken PA-C | PCP | | + +------+ + Encounter Details +--------+ + + + + | Date | Type | Department | Care Team | Description | +--------+ + + + + | 06/12/ | Orders Only | [facility] | Alfredo Casillas DO | | | 2017 | | [facility] | [address] [facility] | | | | | PAIN [address] | [place] [address] | | | | | Blvd [place], [place] | [phone] | | | | | [address] | [...] [place] | | | | | | [place] [address] | | | | | | [phone] | | | | | | | | +--------+---------+ + + + as of this encounter Visit Diagnoses Not on filein this encounter"
--- OUTSIDE RECORDS SUMMARY | ~2018-07-13 | XMS | Encounter Summary ---
Demographics + + + | Address | [address] | | | [place] [address] | + + + | Home Phone | | + + + | Preferred Language | Unknown | + + + | Marital Status | | + + + | Rastafari Affiliation | 1013 | + + + | Race | Unknown | + + + | Ethnic Group | Unknown | + + + Author + + + | Author | [facility] | + + + | Organization | [facility] | + + + | Address | [...] Team Providers + +------+ + | Care Brake Lining Curer Name | Role | Phone | + +------+ + | Oxana Nye NP | PCP | | + +------+ + Reason for Visit +--------+ + | Reason | Comments | +--------+ + | Other | Patient is returning a call to Vicki about referral. She needs | | | to schedule | +--------+ + Encounter Details +--------+ + + + + | Date | Type | Department | Care Team | Description | +--------+ + + + + | 06/01/ | Telephone | [facility] | Maykel Hutchins MD | Other (Patient is | | 2018 | | [facility] | [address] | returning a call to | | | | [address] | [place] [address] | Vicki about | | | | [address] [place] | [phone] | referral. She needs | | | | [address] | | to schedule ) | | | | [phone] | | | +--------+ + + + [...] | 2018 | Visit | | [address] | | | | | | [place] [address] | | | | | | [phone] | | | | | | | | +--------+---------+ + + + as of this encounter Visit Diagnoses Not on filein this encounter"
--- OUTSIDE RECORDS SUMMARY | ~2018-07-13 | XMS | Encounter Summary ---
Demographics + + + | Address | [address] | | | [place] [address] | + + + | Home Phone | | + + + | Preferred Language | Unknown | + + + | Marital Status | | + + + | Buddhism Affiliation | 1041 | + + + [...] Providers + +------+ + | Care Machinist Apprentice Name | Role | Phone | [...] + + | 04/17/ | Telephone | [facility] | Nick Martinez, | Yehuda (Back Brace) | | 2017 | | PHYSIATRY [address] | PA-C [address] | | | | | [place], | [address] [place] | | | | | [place] [address] | [place] [address] | | | | | [phone] | [phone] | | | | | | | [...]
--- OUTSIDE RECORDS SUMMARY | ~2018-07-13 | XMS | Encounter Summary ---
Demographics + + + | Address | [address] | | | [place] [address] | + + + | Home Phone | | + + + | Preferred Language | Unknown | + + + | Marital Status | | + + + | Denominational Affiliation | 1013 | + + + | Race | Unknown | + + + | Ethnic Group | Unknown | + + + Author + + + | Author | [facility] | + + + | Organization | [facility] | + + + | Address | [...] Team Providers + +------+ + | Care Decorating Machine Tender Name | Role | Phone | + +------+ + | Wendi Akien PA-C | PCP | | + +------+ + Reason for Visit +--------+ + | Reason | Comments | +--------+ + | Other | questions | +--------+ + Encounter Details +--------+ + + + + | Date | Type | Department | Care Team | Description | +--------+ + + + + | 06/07/ | Telephone | [facility] | Jennifer Hicks, BOLTING MACHINE OPERATOR | Other (questions ) | | 2017 | | [facility] | | | | | | MEDICINE RADHA | | | | | | [address] [facility] | | | | | | [place] | | | | | | [address] | | | | | | [phone] | | | +--------+ + + + [...] | 2017 | Visit | | [address] [facility] | | | | | | [place] [address] | | | | | | [phone] | | | | | | | | +--------+---------+ + + + as of this encounter Visit Diagnoses Not on filein this encounter"
--- OUTSIDE RECORDS SUMMARY | ~2018-07-13 | XMS | Encounter Summary ---
Demographics + + + | Address | [address] | | | [place] [address] | + + + | Home Phone | | + + + | Preferred Language | Unknown | + + + | Marital Status | | + + + | Mandaen Affiliation | 1041 | + + + | Race | Unknown | + + + | Ethnic Group | Unknown | + + + Author + + + | Author | [facility] | | | and Priteshana | + + + | Organization | [facility] | | | and [...] Team Providers + +------+ + | Care Mission Manager Name | Role | Phone | [...] [address] | | | | | [phone] | [place] [address] | | +--------+ + + + + [...]
--- OUTSIDE RECORDS SUMMARY | ~2018-07-13 | XMS | Encounter Summary ---
Demographics + + + | Address | [address] | | | [place] [address] | + + + | Home Phone | | + + + | Preferred Language | Unknown | + + + | Marital Status | | + + + | Sabianist Affiliation | 1013 | + + + | Race | Unknown | + + + | Ethnic Group | Unknown | + + + Author + + + | Author | [facility] | + + + | Organization | [facility] | + + + | Address | [...] Team Providers + +------+ + | Care Digester Hand Name | Role | Phone | + +------+ + | Wendi Aiken PA-C | PCP | | + +------+ + Encounter Details +--------+ + + + + | Date | Type | Department | Care Team | Description | +--------+ + + + + | 06/13/ | Procedure | [facility] | | | | 2018 | [facility] | | | | | | Operating Room [address] | | | | | | [facility] | | | | | | [place] [address] | | | | | | [phone] | | | +--------+ + + + [...] | 2018 | Visit | | [address] | | | | | | [place] [address] | | | | | | [phone] | | | | | | | | +--------+---------+ + + + as of this encounter Visit Diagnoses Not on filein this encounter"
--- OUTSIDE RECORDS SUMMARY | ~2018-07-13 | XMS | Encounter Summary ---
Demographics + + + | Address | [address] | | | [place] [address] | + + + | Home Phone | | + + + | Preferred Language | Unknown | + + + | Marital Status | | + + + | Confucianism Affiliation | 1041 | + + + | Race | Unknown | + + + | Ethnic Group | Unknown | + + + Author + + + | Author | [facility] | | | and Priteshana | + + + | Organization | [facility] | | [...] Team Providers + +------+ + | Care Scientific Informatics Analyst Name | Role | Phone | [...] | | | | | sequela | [place] [address] | [address] | | | | | Lumbar | Phone: | Phone: | | | | | radiculopath | [phone] | [phone] | | | | | y | Fax: | Fax: | | | | | Procedures | [phone] | [phone] | | | | | HIM 04/17/18 [...] fracture of fifth | | | | [address], | [address] [place] | lumbar vertebra, | | | | [place] [address] | [place] [address] | sequela (Primary | | | | [phone] | [phone] | Dx); Lumbar | | | | [...] +--------+ + + | AMB REFERRAL TO [facility]ICAL | Routin | Closed Compression [...]
--- OUTSIDE RECORDS SUMMARY | ~2018-07-13 | XMS | Encounter Summary ---
Demographics + + + | Address | [address] | | | [place] [address] | + + + | Home Phone | | + + + | Preferred Language | Unknown | + + + | Marital Status | | + + + | Jain Affiliation | 1013 | + + + | Race | Unknown | + + + | Ethnic Group | Unknown | + + + Author + + + | Author | [email or web address] | + + + | Organization | [email or web address] | + + + | Address | [...] Team Providers + +------+ + | Care Dictating Machine Mechanic Name | Role | Phone | [...] | Physical | Diagnoses | [place], | [place], St | | | Services | Therapy | Pain of | DO Alfredo | Kiana | | | Required | | both hip | [address] | Outpatient | | | | | joints | ST | Physican | | | | | Lumbar pain | [place], [place] | Therapy [address] | | | | | | [address] | [address] | | | | | | Phone: | WAY | | | | | | [phone] | [place] | | | | | | Fax: | [address] | | | | | | [phone] | Phone: | | | | | | | [phone] | | | | | | | Fax: | | | | | | | [phone] | + + + + + + + Encounter Details +--------+ + + + + | Date | Type | Department | Care Team | Description | +--------+ + + + + | 06/26/ | Telephone | [facility] | Jennifer Hicks, DIRECTOR RISK | | | 2017 | | [facility] | | | | | | MEDICINE [place] | | | | | | PAIN [address] | | | | | | [place] | | | | | | [address] | | | | | | [phone] | | | +--------+ + + + [...] | 2018 | Visit | | [address] [facility] | | | | | | [place] [address] | | | | | | [phone] | | | | | | | [...]
--- OUTSIDE RECORDS SUMMARY | ~2018-07-13 | XMS | Encounter Summary ---
Demographics + + + | Address | [address] | | | [place] [address] | + + + | Home Phone [...] Team Providers + +------+ + | Care Crochet Beader Name | Role | Phone | + +------+ + | Wendi Rivers | PCP | | + +------+ + [...] | | | CENTER [address] | [facility] | Borderline | | 06/25/ | | [address] [place], [place] | [place] [address] | personality disorder | | 2017 | | [address] | [phone] | | | | | [phone] | | | | | | | [place], | | | | | | [address] | | | | | | [place] [address] | | | | | | [phone] | | | | | | | [...] | Oxygen Saturation | 98% | 06/25/2018 1311 PDT | + + + + | [...] 06/23/20181952 PDT | + + + + in this encounter Medications at Time of Discharge + + +-------+---------+--------+ + | Medication | Sig. | Disp. | Refills | Start | End Date | | | | | | Date | | + + +-------+---------+--------+ + | clonazePAM | Take 1-2 mg by mouth | | | | | | (KLONOPIN) 1 mg | nightly as needed | | | | | | tablet | for Anxiety. | | | | | + + +-------+---------+--------+ + | fentaNYL | Place 1 patch onto | | | | | | (DURAGESIC) 25 | the skin every 72 | | | | | | mcg/hr | hours. | | | | | + + +-------+---------+--------+ + | | Take 1 tablet by | | | | | | HYDROcodone-acetamin | mouth every 8 hours | | | | | | ophen (NORCO) 10-325 | as needed for Pain. | | | | | | mg per tablet | | | | | | + + +-------+---------+--------+ + | ibuprofen | Take 600 mg by mouth | | | | | | (ADVIL,MOTRIN) 600 | every 6 hours as | | | | | | MG tablet | needed for Pain. | | | | | + + +-------+---------+--------+ + | levothyroxine | Take 100 mcg by | | | | | | (SYNTHROID) 100 mcg | mouth every morning | | | | | | tablet | (before breakfast). | | | | | + + +-------+---------+--------+ + | Loratadine 10 MG | Take 10 mg by mouth | | | | | | CAPS | Daily as needed. | | | | | + + +-------+---------+--------+ + | rOPINIRole | Take 4 mg by mouth 4 | | | | | | (REQUIP) 4 mg tablet | times daily. | | | | | + + +-------+---------+--------+ + as of this encounter Progress Notes Hannah Ron, PharmD - 06/24/2018 1006 PDTMedication History Completed Medication history was completed using: -[facility] both in [place] Major discrepancies noted: Did not speak with patient, just verified medications with most recently fill lists from her pharmacies. Removed Ranitidine and Myrbetriq from med list as these have not been filled in the last 3 months. Please see [facility] med list for updated medication list. Electronically Signed by: Hannah Ron PharmD 06/24/2018 10:06 in this encounter Plan of Treatment + +--------+ + + | Name | Priori | Associated Diagnoses | Date/Time | | | ty | | | + +--------+ + + | ED INFORMATION EXCHANGE | Routin | | 06/23/20181951 PDT | | | e | | | + +--------+ + + as [...] Results for this | | | | 0 PDT | | procedure [...] this | | SCREEN, URINE | | 2040 PDT | | procedure are in the | | | | | | results section. | + +--------+ + + + | ED INFORMATION | Routin | 06/23/2018 | | | | EXCHANGE | e | 2 PDT | | | + +--------+ + + + +---+--------+ | | | | | Proced | | | ure | | | Note - | | | Doug, | | | Lab In | | | | | | Hlseve | | | n - | | | 08/24/ | | | 2018 | | | 1951 | | | PDT | | | [...] KORI | | | | | | [id number] | | | [id number] | | | Securi | | | [...] | | | St. | | | [place] | | | y | | | [...] | | | St. | | | [place] | | | y H. | | [...] | | | St. | | | [place] | | | y H. | | [...] | | | St. | | | [place] | | | y H. | | [...] | | | St. | | | [place] | | | y H. | | [...] | | | St. | | | [place] | | | y H. | | [...] | | | St. | | | [place] | | | y H. | | [...] | | | St. | | | [place] | | | y | | | [...] | | | L | | | REPRODUCTION SPECIALIST | | | , MD 2 | [...] | [email or web address] | | | | +---+--------+ in this encounter Results POC Glucose (06/24/2018 0725) + +-------+ + + | Component | Value | Ref Range | Performed At | + +-------+ + + | Glucose, POC | 94 | 70 - 110 mg/dL | [facility] | | | [...] + + | [facility] | [address] | [place] [address] | [phone] | | [facility] | | | | + + + + + TSH (06/23/20182129) + +-------+ + + | Component | Value | Ref Range | Performed At | + +-------+ + + | TSH | 1.92 | 0.36 - 3.74 uIU/mL | [facility] | | | | | [facility] | | | | | LABORATORY | + +-------+ + + + + | Specimen | + + | Blood | + + + + + + + | Performing | Address | City/State/Zipcode | Phone Number | | Organization | | | | + + + + + | [facility] | [address] | [place] [address] | [phone] | | [facility]OSPITAL [facility] | | | [...] + + | [facility] | [address] | [place] [address] | [phone] | | HOSPITAL [facility] | | | [...] + + | [facility] | [address] | [place] [address] | [phone] | | HOS[facility]ITAL [facility] | | | | + + + + + Comprehensive Metabolic Panel (06/23/20182129) + + + + + | Component | Value | Ref Range | Performed At | + + + + + | NA | 140 | 132 - 143 mmol/L | [facility] | | | | [...] | 70 - 110 mg/dL | [facility] | | | | | [facility] | | | | | LABORATORY | + + + + + | BUN | 16 | 5 - 26 mg/dL | [facility] | | | | | [facility] | | | | | LABORATORY | + + + + + | Creatinine, | 0.84 | 0.60 - 1.30 mg/dL | [facility] | | Serum/Plasma | | | HOSPITAL | | | | | LABORATORY | + + + + + | eGFR if not | >60Comment: GLOMERULAR | >=60 mL/min/1.73m2 | [facility] | | HONDURAN | FILTRATION | | HOSPITAL | | | RATE,ESTIMATED mL/min | | LABORATORY | | | /1.29a9Wgyr than 60 | | | | | [...] | 0.0 - 1.2 mg/dL | [facility] | | | [...] | Albumin/Globulin | 1.3 | | [facility] | | ratio | | | HOSPITAL [...] + + | [facility] | [address] | [place] [address] | [phone] | | HOSPITAL LAB[facility]ORY | | | [...] | 82.0 - 97.0 fL | [facility] | | | [...] + + | [facility] | [address] | [place] [address] | [phone] | | HOSPITAL [facility] | | | | + + + + + Acetaminophen Level (06/23/20180) + +---------+ + + | Component | [...] + + | [facility] | [address] | [place] [address] | [phone] | | HOSPITAL [facility] | | | [...] + + + + + | Specific Tavares | 1.010 | 1.003 - 1.030 | [...] + + | [facility] | [address] | [place] [address] | [phone] | | HOSPITAL [facility] | | | [...] the attending | LABORATORY | | physician. Iigz-rom-zgqdzgb drugs may cross react with some methods. [...] + + | [facility] | [address] | [place] [address] | [phone] | | HOSPITAL [facility] | | | | + + + + + in this encounter Visit Diagnoses + + | Diagnosis | + + | Suicide ideation - Primary | + + | Suicidal ideation | + + | Borderline personality disorder | + + Administered Medications + +--------+ +-------+------+------+ | Medication Order | MAR | Action | Dose | Rate | Site | | | Action | Date | | | | + +--------+ +-------+------+------+ | aspirin chewable tablet 81 mg | Given | | 81 mg | | | | 81 mg, Oral, DAILY, First dose on | | 8 8:19 | | | | | 06/24/18 at 0900 | | PDT | | | | + +--------+ +-------+------+------+ +-------+ +-------+---+---+ | Given | | 81 mg | | | | | 8 9:22 | | | | | | PDT | | | | +-------+ +-------+---+---+ + +---+ | | | + +---+ | clonazePAM (klonoPIN) 1 mg | | | tablet Starting 06/24/18 at | | | 1918, For 1 dose, HELIO, | | | GALA willis override | | + +---+ | | | + +---+ + +-------+ +------+---+---+ | clonazePAM (klonoPIN) tablet 1 | Given | | 1 mg | | | | mg 1 mg, Oral, ONCE, 06/24/18 | | 8 11:48 | | | | | at 1200, For 1 dose, | | PDT | | | | | Reproductive Risk: Use | | | | | | | appropriate handling precautions. | | | | | | + +-------+ +------+---+---+ +---+---+ | | | +---+---+ + +-------+ +------+---+---+ | clonazePAM (klonoPIN) tablet 1 | Given | | 1 mg | | | | mg 1 mg, Oral, NIGHTLY, First | | 8 19:25 | | | | | dose on 06/24/18 at 2100, | | PDT | | | | | Reproductive Risk: Use | | | | | | | appropriate handling precautions. | | | | | | + +-------+ +------+---+---+ +---+---+ | | | +---+---+ + +-------+ + +---+---+ | HYDROcodone-acetaminophen | Given | | 1 tablet | | | | (NORCO) 10-325 mg per tablet 1 | | 8 23:00 | | | | | tablet 1 tablet, Oral, ONCE, Fri | | PDT | | | | | 06/23/18 at 2315, For 1 dose | | | | | | + +-------+ + +---+---+ +---+---+ | | | +---+---+ + +-------+ + +---+---+ | HYDROcodone-acetaminophen | Given | | 1 tablet | | | | (NORCO) 10-325 mg per tablet 1 | | 8 7:37 | | | | | tablet 1 tablet, Oral, ONCE, Sat | | PDT | | | | | 06/24/18 at 0745, For 1 dose | | | | | | + +-------+ + +---+---+ +---+---+ | | | +---+---+ + +-------+ + +---+---+ | HYDROcodone-acetaminophen | Given | | 1 tablet | | | | (NORCO) 10-325 mg per tablet 1 | | 8 18:17 | | | | | tablet 1 tablet, Oral, EVERY 6 | | PDT | | | | | HOURS PRN, Pain, Starting Sat | | | | | | | 06/24/18 at 1813 | | | | | | + +-------+ + +---+---+ +-------+ + +---+---+ | Given | | 1 tablet | | | | | 8 6:46 | | | | | | PDT | | | | +-------+ + +---+---+ +---+---+ | | | +---+---+ + +-------+ +--------+---+---+ | levothyroxine (SYNTHROID) | Given | | 88 mcg | | | | tablet 88 mcg 88 mcg, Oral, | | 8 8:20 | | | | | DAILY BEFORE BREAKFAST, First | | PDT | | | | | dose on 06/24/18 at 0815, Give | | | | | | | before breakfast. | | | | | | + +-------+ +--------+---+---+ +-------+ +--------+---+---+ | Given | | 88 mcg | | | | | 8 6:11 | | | | | | PDT | | | | +-------+ +--------+---+---+ + +---+ | | | + +---+ | naproxen (NAPROSYN) 500 mg | | | tablet Starting 06/24/18 at | | | 1258, For 1 dose, HOWARD, | | | UNIQUE Ramos: lazaro override | | + +---+ | | | + +---+ + +-------+ +--------+---+---+ | naproxen (NAPROSYN) tablet 500 | Given | | 500 mg | | | | mg 500 mg, Oral, 2 TIMES DAILY | | 8 13:01 | | | | | WITH BREAKFAST & DINNER, First | | PDT | | | | | dose on 06/24/18 at 2100, Give | | | | | | | with food. | | | | | | + +-------+ +--------+---+---+ +-------+ +--------+---+---+ | Given | | 500 mg | | | | | 8 1:55 | | | | | | PDT | | | | +-------+ +--------+---+---+ | Given | | 500 mg | | | | | 8 9:21 | | | | | | PDT | | | | +-------+ +--------+---+---+ + +---+ | | | + +---+ | rOPINIRole (REQUIP) 1 mg tablet | | | Starting 06/23/18 at 2253, | | | For 1 dose, ARIEL BOND: | | | cabinet override | | + +---+ | | | + +---+ + +-------+ +------+---+---+ | rOPINIRole (REQUIP) tablet 2 mg | Given | | 2 mg | | | | 2 mg, Oral, 4 TIMES DAILY, | | 8 9:06 | | | | | First dose on 06/24/18 at 0900 | | PDT | | | | + +-------+ +------+---+---+ +---+---+ | | | +---+---+ + +-------+ +------+---+---+ | rOPINIRole (REQUIP) tablet 2 mg | Given | | 2 mg | | | | 2 mg, Oral, ONCE, 06/24/18 | | 8 9:15 | | | | | at 0930, For 1 dose | | PDT | | | | + +-------+ +------+---+---+ +---+---+ | | | +---+---+ + +-------+ +------+---+---+ | rOPINIRole (REQUIP) tablet 4 mg | Given | | 4 mg | | | | 4 mg, Oral, ONCE, 06/23/18 | | 8 23:00 | | | | | at 2315, For 1 dose | | PDT | | | | + +-------+ +------+---+---+ +---+---+ | | | +---+---+ + +-------+ +------+---+---+ | rOPINIRole (REQUIP) tablet 4 mg | Given | | 4 mg | | | | 4 mg, Oral, 4 TIMES DAILY, | | 8 13:02 | | | | | First dose on 06/24/18 at 1300 | | PDT | | | | + +-------+ +------+---+---+ +-------+ +------+---+---+ | Given | | 4 mg | | | | | 8 19:25 | | | | | | PDT | | | | +-------+ +------+---+---+ | Given | | 4 mg | | | | | 8 6:46 | | | | | | PDT | | | | +-------+ +------+---+---+ +---+---+ | | | +---+---+ in this encounter
--- OUTSIDE RECORDS SUMMARY | ~2018-07-13 | XMS | Encounter Summary ---
Demographics + + + | Address | [address] | | | [place] [address] | + + + | Home Phone | | + + + | Preferred Language | Unknown | + + + | Marital Status | | + + + | Buddhist Affiliation | 1013 | + + + | Race | Unknown | + + + | Ethnic Group | Unknown | + + + Author + + + | Author | [facility] | + + + | Organization | [facility] | + + + | Address | [...] Providers + +------+ + | Care Sole Stitcher Hand Name | Role | Phone | [...] + + | 05/26/ | Ancillary | [facility] | See, Medical | Pain | | 2018 | Orders | [facility] | Record | | | | | [address] | | | | | | [place] [address] | | | | | | [phone] | | | +--------+ + + + [...] | 2017 | Visit | | [address] [facility] | | | | | | [place] [address] | | | | | | [phone] | | | | | | | [...] | [address] | [place] [address] | | + + + + + in this encounter Visit Diagnoses + + | Diagnosis | + + | Pain | + + | Generalized pain | + +"
--- OUTSIDE RECORDS SUMMARY | ~2018-07-13 | XMS | Encounter Summary ---
Demographics + + + | Address | [address] | | | [place] [address] | + + + | Home Phone | | + + + | Preferred Language | Unknown | + + + | Marital Status | | + + + | Anglican Affiliation | 1013 | + + + | Race | Unknown | + + + | Ethnic Group | Unknown | + + + Author + + + | Author | [facility] | + + + | Organization | [facility] | + + + | Address | [...] Providers + +------+ + | Care Hand Hide Stretcher Name | Role | Phone | + +------+ + | Oxana Nye NP | PCP | | + +------+ + Encounter Details +--------+ + + + + | Date | Type | Department | Care Team | Description | +--------+ + + + + | 05/31/ | Documentati | [facility] | Maykel Hutchins MD | | | 2018 | on Only | [facility] | [address] | | | | | [address] | [place] [address] | | | | | [place], [place] | [phone] | | | | | [address] | | | | | | [phone] | | | +--------+ + + + [...] + + as of this encounter Progress Claudette Jordan - 05/31/2018 12:59 PM PDTReferral Recordsin this encounter Plan of Treatment +--------+---------+ + + + | Date | Type | Specialty | Care Team | Description | +--------+---------+ + + + | 07/19/ | Office | Dolorology | Alfredo Casillas DO | | | 2017 | Visit | | [address] | | | | | | [facility] [address] | | | | | | [phone] | | | | | | | | +--------+---------+ + + + as of this encounter Visit Diagnoses Not on filein this encounter"
--- OUTSIDE RECORDS SUMMARY | ~2018-07-13 | XMS | Encounter Summary ---
Demographics + + + | Address | [address] | | | [place] [address] | + + + | Home Phone | | + + + | Preferred Language | Unknown | + + + | Marital Status | | + + + | Restorationist Affiliation | 1013 | + + + | Race | Unknown | + + + | Ethnic Group | Unknown | + + + Author + + + | Author | [facility] | + + + | Organization | [facility] | + + + | Address | [...] Team Providers + +------+ + | Care Share Holder Name | Role | Phone | + +------+ + | Wendi Aiken PA-C | PCP | | + +------+ + Reason for Visit + + + | Reason | Comments | + + + | Referral | referral back | + + + Encounter Details +--------+ + + + + | Date | Type | Department | Care Team | Description | +--------+ + + + + | 07/13/ | Documentati | [facility] | Obey Minor Osm | Referral ( | | 2018 | on Only | [facility] | Referral Department | referral back ) | | | | MEDICINE [place] | [address] | | | | | PAIN [address] | [place] [address] | | | | | [place], [place] | [phone] | | | | | [address] | | | | | | [phone] | | | +--------+ + + + [...] | 2017 | Visit | | [address] [facility] | | | | | | [place] [address] | | | | | | [phone] | | | | | | | | +--------+---------+ + + + as of this encounter Visit Diagnoses Not on filein this encounter"
--- OUTSIDE RECORDS SUMMARY | ~2018-07-13 | XMS | Encounter Summary ---
Demographics + + + | Address | [address] | | | [place] [address] | + + + | Home Phone [...] Providers + +------+ + | Care Manager Highway Name | Role | Phone | + [...] IMAGING | | | | | | [phone] | | | +--------+ + + + [...]
--- OUTSIDE RECORDS SUMMARY | ~2018-07-13 | XMS | Encounter Summary ---
Demographics + + + | Address | [address] | | | [place] [address] | + + + | Home Phone [...] Team Providers + +------+ + | Care Nut Blanker Operator Name | Role | Phone [...] + + | 05/09/ | Telephone | [facility] | Nick Martinez, | Results, Imaging | | 2018 | | PHYSIATRY [address] | PA-C [address] | | | | | [place], | [address] [place] | | | | | [place] [address] | [place] [address] | | | | | [phone] | [phone] | | | | | | | [...]
--- OUTSIDE RECORDS SUMMARY | ~2018-07-13 | XMS | Encounter Summary ---
Demographics + + + | Address | [address] | | | [place] [address] | + + + | Home Phone | | + + + | Preferred Language | Unknown | + + + | Marital Status | | + + + | Faith Affiliation | 1013 | + + + | Race | Unknown | + + + | Ethnic Group | Unknown | + + + Author + + + | Author | [facility] [employer] [facility] | + + + | Organization | [facility] | + + + | Address | [...] Team Providers + +------+ + | Care Copper Plater Name | Role | Phone | + +------+ + | Wendi Aiken PA-C | PCP | | + +------+ + Encounter Details +--------+ + + + + | Date | Type | Department | Care Team | Description | +--------+ + + + + | 07/04/ | Telephone | [facility] | Jennifer Hicks CMA | | | 2017 | | [facility] | | | | | | MEDICINE RADHA | | | | | | PAIN [address] | | | | | | [place] | | | | | | [address] | | | | | | [phone] | | | +--------+ + + + [...] | | | | | [place] [address] | | | | | | [phone] | | | | | | | | +--------+---------+ + + + as of this encounter Visit Diagnoses Not on filein this encounter"
--- OUTSIDE RECORDS SUMMARY | ~2018-07-13 | XMS | Encounter Summary ---
Demographics + + + | Address | [address] | | | [place] [address] | + + + | Home Phone | | + + + | Preferred Language | Unknown | + + + | Marital Status | | + + + | Shinto Affiliation | 1041 | + + + [...] Providers + +------+ + | Care Watch Parts Inspector Name | Role | Phone | [...] | | | CENTER [address] | [facility] | Borderline | | 06/25/ | | [place], [place] | [place] [address] | personality disorder | | 2017 | | [address] | [phone] | | | | | [phone] | | | | | | | Pelon Diaz, | | | | | | [address] | | | | | | [place] [address] | | | | | | [phone] | | | | | | | [...] was completed using: -medication list faxed from [facility] and [facility] both in [place] Major discrepancies noted: Did not speak with patient, just verified medications with most recently fill lists from her pharmacies. Removed Ranitidine and Myrbetriq from med list as these have not been filled in the last 3 months. Please see RESIDENTIAL GAS HEAT TECHNICIAN med list for updated medication list. Electronically [...] KORI | | | | | | [id number] | | | [id number] | | | Securi | | | [...] | | | St. | | | Bolt | | | y | | | [...] | | | St. | | | Bolt | | | y H. | | [...] | | | St. | | | Bolt | | | y H. | | [...] | | | St. | | | Bolt | | | y H. | | [...] | | | St. | | | Bolt | | | y H. | | [...] | | | St. | | | Bolt | | | y H. | | [...] | | | St. | | | Bolt | | | y H. | | [...] | | | St. | | | Bolt | | | y | | | [...] | | | L | | | WARRANT CLERK | | | , MD 2 | [...] + + | [facility] | [address] | [place] [address] | [phone] | | HOSPITAL LAB[facility]ORY | | | [...] + + | [facility] | [address] | [place] [address] | [phone] | | HOSPITAL LABORATORY | | | [...] + + | [facility] | [address] | [place] [address] | [phone] | | HOSPITAL LABORATORY | | | [...] + + | [facility] | [address] | [place] [address] | [phone] | | HOSPITAL LABORATORY | | | [...] >=60 mL/min/1.73m2 | [facility] | | [facility] | FILTRATION | | HOSPITAL | | | RATE,ESTIMATED mL/min | | LABORATORY | | | /1.03l4Mcrf than 60 | | | | | [...] + + | [facility] | [address] | [place] [address] | [phone] | | HOSPITAL LABORATORY | | | [...] + + | [facility] | [address] | [place] [address] | [phone] | | HOSPITAL LABORATORY | | | [...] + + | [facility] | [address] | [place] [address] | [phone] | | HOSPITAL LABORATORY | | | [...] + + + + + | Specific [place] | 1.010 | 1.003 - 1.030 | [...] + + | [facility] | [address] | [place] [address] | [phone] | | HOSPITAL LAB[facility]ATORY | | | [...] the attending | LABORATORY | | physician. Ekru-foc-vehtywv drugs may cross react with some methods. [...] + + | [facility] | [address] | [place] [address] | [phone] | | HOSPITAL LABORATORY | | | [...]
--- OUTSIDE RECORDS SUMMARY | ~2018-07-13 | XMS | Encounter Summary ---
Demographics + + + | Address | [address] | | | [place] [address] | + + + | Home Phone | | + + + | Preferred Language | Unknown | + + + | Marital Status | | + + + | Latter-Day Affiliation | 1013 | + + + | Race | Unknown | + + + | Ethnic Group | Unknown | + + + Author + + + | Author | [facility] [employer] | + + + | Organization | [facility] | + + + | Address | [...] + +------+ + | Care Director Of Enterprise Architecture Name | Role | Phone | + +------+ + | Wendi Aiken PA-C | PCP | | + +------+ + Encounter Details +--------+ + + + + | Date | Type | Department | Care Team | Description | +--------+ + + + + | 05/26/ | Procedure | [facility] PHYSICIAN | | | | 2018 | Pass | [facility] | | | | | | RADIOLOGY [address] | | | [address] | | | | | | [place] [address] | | | | | | [phone] | | | +--------+ + + + [...] | | | | | [place] [address] | | | | | | [phone] | | | | | | | | +--------+---------+ + + + as of this encounter Visit Diagnoses Not on filein this encounter"
--- OUTSIDE RECORDS SUMMARY | ~2018-07-13 | XMS | Encounter Summary ---
Demographics + + + | Address | [address] | | | [place] [address] | + + + | Home Phone | | + + + | Preferred Language | Unknown | + + + | Marital Status | | + + + | Protestant Affiliation | 1013 | + + + | Race | Unknown | + + + | Ethnic Group | Unknown | + + + Author + + + | Author | [facility] | + + + | Organization | [facility] | + + + | Address | [...] Providers + +------+ + | Care Core Maker Name | Role | Phone | [...] + + | 07/27/ | Hospital | [facility] PHYSICIAN | See, Medical | Pain | | 2018 | Encounter | [facility] | Record | | | | | RADIOLOGY [address] | | | | | | [address] | | | | | | [place] [address] | | | | | | [phone] | | | +--------+ + + + [...] 2018 | Visit | | [address] [facility] | | | | | | [place] [address] | | | | | | [phone] | | | | | | | [...] [facility] | [address] | [place] [address] | | + + + + + in this encounter Visit Diagnoses + + | Diagnosis | + + | Pain | + + | Generalized pain | + +"
--- OUTSIDE RECORDS SUMMARY | ~2018-07-13 | XMS | Encounter Summary ---
Demographics + + + | Address | [address] | | | [place] [address] | + + + | Home Phone [...] Providers + +------+ + | Care Environmental Services Lead Name | Role | Phone | [...] [address] | | | | | [phone] | [place] [address] | | +--------+ + + + + [...]
--- OUTSIDE RECORDS SUMMARY | ~2018-07-13 | XMS | Encounter Summary ---
Demographics + + + | Address | [address] | | | [place] [address] | + + + | Home Phone | | + + + | Preferred Language | Unknown | + + + | Marital Status | | + + + | Church Affiliation | 1013 | + + + | Race | Unknown | + + + | Ethnic Group | Unknown | + + + Author + + + | Author | [employer] | + + + | Organization | [facility] | + + + | Address | [...] + +------+ + | Care Quality Control Engineer Name | Role | Phone | [...] + + | 07/27/ | Hospital | [facility] PHYS[facility]IAN | See, Medical | Pain | | 2018 | Encounter | [facility] | Record | | | | | RADIOLOGY [address] | | | | | | [address] | | | | | | [place] [address] | | | | | | [phone] | | | +--------+ + + + [...] | [address] [facility] | | | | | | [place] [address] | | | | | | [phone] | | | | | | | [...] [facility] | [address] | [place] [address] | | + + + + + in this encounter Visit Diagnoses + + | Diagnosis | + + | Pain | + + | Generalized pain | + +"
--- OUTSIDE RECORDS SUMMARY | ~2018-07-13 | XMS | Encounter Summary ---
Demographics + + + | Address | [address] | | | [place] [address] | + + + | Home Phone [...] Providers + +------+ + | Care Veterinary Bacteriologist Name | Role | Phone | + [...] RhettrichieJacquelyn VALDEZ | | | | | [phone] | [place] [address] | | +--------+ + + + + [...]
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
--- OUTSIDE RECORDS SUMMARY | ~2018-07-13 | XMS | Encounter Summary ---
Demographics + + + | Address | [address] | | | [place] [address] | + + + | Home Phone [...] Providers + +------+ + | Care Bacteriologist Medical Name | Role | Phone | + [...] RhettrichieJacquelyn VALDEZ | | | | | [phone] | [place] [address] | | +--------+ + + + + [...]
--- OUTSIDE RECORDS SUMMARY | ~2018-07-13 | XMS | Encounter Summary ---
Demographics + + + | Address | [address] | | | [place] [address] | + + + | Home Phone | | + + + | Preferred Language | Unknown | + + + | Marital Status | | + + + | Quaker Affiliation | 1013 | + + + | Race | Unknown | + + + | Ethnic Group | Unknown | + + + Author + + + | Author | [employer] | + + + | Organization | [facility] | + + + | Address | [...] Team Providers + +------+ + | Care Painting Manager Name | Role | Phone | + +------+ + | Wendi Aiken PA-C | PCP | | + +------+ + Encounter Details +--------+ + + + + | Date | Type | Department | Care Team | Description | +--------+ + + + + | 06/09/ | Telephone | [facility] | Jennifer Hicks CMA | | | 2017 | | [facility] | | | | | | MEDICINE [facility] | | | | | | [address] | | | | | | [place] | | | | | | [address] | | | | | | [phone] | | | +--------+ + + + [...] | | | | | [place] [address] | | | | | | [phone] | | | | | | | | +--------+---------+ + + + as of this encounter Visit Diagnoses Not on filein this encounter"
--- OUTSIDE RECORDS SUMMARY | ~2018-07-13 | XMS | Clinical Summary ---
Demographics + + + | Address | [address] | | | [place] [address] | + + + | Home Phone | | + + + | Preferred Language | Unknown | + + + | Marital Status | | + + + | Restorationist Affiliation | 1013 | + + + | Race | Unknown | + + + | Ethnic Group | Unknown | + + + Author + + + | Author | [facility] [employer] | + + + | Organization | [facility] [employer] [facility] | + + + | Address | [...] Team Providers + +------+ + | Care Conductor/Engineer Name | Role | Phone | + [...] Overview: Added automatically from request for surgery [id number] | + + + + + | [...] + + | 07/13/ | Documentati | | Obey Minor Osm | Referral ( | | 2017 | on Only | | Referral Department | referral back ) | +--------+ + + + + | 07/04/ | Telephone | | Jennifer Hicks CMA | | 2017 | | | | [...] encounter | | | | | | ([facility]) (Primary Dx); | | | | [...] | Closed compression | | 2017 | Encounter | | | fracture of fifth | | | | | | lumbar vertebra, | | | | | | initial encounter | | | | | | ([facility]) | +--------+ + + + + | [...] | | Juventino [place], | | | 2017 | Event | | LANE | | +--------+ + + + + | 06/12/ | Orders Only | | Alfredo Casillas DO | | | 2018 | | | [...] | | | | | | (HCC) (Primary Dx); | | | | | | Lumbar pain | +--------+ + + + 06/07/ | Telephone | | Jennifer Hicks [...] | 2018 | Visit | | [address] [facility] | | | | | | [place] [address] | | | | | | [phone] | | | | | | | [...] XR HIPS BILATERAL 06/21/2018 8:37 AM | [facility] | | HISTORY: 72 years. Female. Bilateral [...] [facility] | [address] | [place] [address] | | + + + + + [...] + | Junior, Rad Results In - 06/13/2018 9:40 AM TRES SCALESFAWTHROPXR [...] | + + + + + | [facility] | [address] | [place] [address] | | + + + + + POCT glucose (06/13/2018 6:47 AM) + + + + + | Component | Value | Ref Range | Performed At | + + + + + | GLUCOSE,POC SCREEN | 70Comment: Testing | 65 - 99 mg/dL | [facility] | | | performed at [facility];[address] | | | | | [address];[place] | | | | | [address] | | | + + + + + + + + + + | Performing | Address | City/State/Zipcode | Phone Number | | Organization | | | | + + + + + | [facility] | [address] | [place] [address] | | + + + + + [...] | [facility] | | | performed at [facility], [address] | | LABORATORY | | | [facility], | | | | | [place] [address] | | | + + + + + + + | Specimen | + + | Blood | + + + + + + + | Performing | Address | City/State/Zipcode | Phone Number | | Organization | | | | + + + + + | [facility] | [address] | [place] [address] | [phone] | | PATRICK | Andrzej. | | | + + [...] the | | | | | MDRD IDHI traceable | | | | | equation.Testing | | | | | performed at [facility], [address] | | | | | [facility], | | | | | [place] [address] | | | + + + + + + + | Specimen | + + | Blood | + + + + + + + | Performing | Address | City/State/Zipcode | Phone Number | | Organization | | | | + + + + + | [facility] | [address] | [place] [address] | [phone] | | LABORATORY | [address] | | [...] + + + + | Calculated P Augusta | 80 | degrees | [facility] | + + + + + | Calculated R [place] | -9 | degrees | [facility] | + + + + + | Calculated T [place] | 69 | degrees | [facility] | + + + + + | Diagnosis | Normal sinus rhythm with | | [facility] | | | sinus arrhythmiaNormal | [...] + + | [facility] | [address] | [place] [address] | | + + + + + MRI lumbar spine without contrast (05/09/2018 2:54 AM) + + + | Narrative | Performed At | + + + | This is a non-reportable procedure without a radiologist report and | [facility] | | is used for image storage only | RADIOLOGY | + + + + + + + + | Performing | Address | City/State/Zipcode | Phone Number | | Organization | | | | + + + + + | [facility] | [address] | [place] [address] | | + + + + + [...] +------+-------+ + | MEDICARE | MEDICA | [id number] | | | [address] | | | RE | | | | [place] [address] | | | IP-OP | | | | | + +--------+ +------+-------+ + | COMMERCIAL OTHER | COMMER | [id number] | | | | | | CIAL [...] jose | | | [address] | [place] [address] | + +--------+ +--------+ + +
--- OUTSIDE RECORDS SUMMARY | ~2018-07-13 | XMS | Encounter Summary ---
Demographics + + + | Address | [address] | | | [place] [address] | + + + | Home Phone | | + + + | Preferred Language | Unknown | + + + | Marital Status | | + + + | Sabianist Affiliation | 1013 | + + + | Race | Unknown | + + + | Ethnic Group | Unknown | + + + Author + + + | Author | [facility] [employer] [facility] | + + + | Organization | [facility] | + + + | Address | [...] Team Providers + +------+ + | Care Can Filling Room Sweeper Name | Role | Phone | + +------+ + | Wendi Aiken PA-C | PCP | | + +------+ + Encounter Details +--------+ + + + + | Date | Type | Department | Care Team | Description | +--------+ + + + + | 05/26/ | Procedure | [facility] PHYS[facility] | | | | 2018 | Pass | [facility] | | | | | | RADIOLOGY [address] | | | | | | [place] [address] | | | | | | [phone] | | | +--------+ + + + [...] | | | | | [place] [address] | | | | | | [phone] | | | | | | | | +--------+---------+ + + + as of this encounter Visit Diagnoses Not on filein this encounter"
--- OUTSIDE RECORDS SUMMARY | ~2018-07-13 | XMS | Clinical Summary ---
Demographics + + + | Address | [address] | | | [place] [address] | + + + | Home Phone | | + + + | Preferred Language | Unknown | + + + | Marital Status | | + + + | Evangelical Affiliation | 1041 | + + + [...] Team Providers + +------+ + | Care Group Fitness Instructor Name | Role | Phone [...] + +---+ + + | Overview: LOUISE [id number] Decision | + + + +---+ | [...] + + | Brother | | | [place] | | | | (Age | | [...] KORI | | | | | | [id number] | | | [id number] | | | Securi | | | [...] | | | St. | | | [place] | | | y | | | [...] | | | [phone] | | [phone] | | | .These | | | [...] | | | St. | | | [place] | | | y H. | | [...] | | | St. | | | [place] | | | y H. | | [...] | | | St. | | | [place] | | | y H. | | [...] | | | St. | | | [place] | | | y H. | | [...] | | | St. | | | [place] | | | y H. | | [...] | | | St. | | | [place] | | | y H. | | [...] | | | St. | | | [place] | | | y | | | [...] | | | L | | | ANALOG DEVICE DESIGNER | | | , MD 2 | [...] + + | [facility] | [address] | [place] [address] | [phone] | | HOSPITAL [facility]ORY | | | [...] + + | [facility] | [address] | [place] [address] | [phone] | | HOSPITAL LAB[facility]ATORY | | | [...] + + | [facility] | [address] | [place] [address] | [phone] | | HOSPITAL LAB[facility]ORY | | | [...] + + | [facility] | [address] | [place] [address] | [phone] | | HOSPITAL LAB[facility]ATORY | | | [...] + + | [facility] | [address] | [place] [address] | [phone] | | HOSPITAL LAB[facility]ATORY | | | [...] + + | [facility] | [address] | [place] [address] | [phone] | | HOSPITAL [facility]ORY | | | [...] >=60 mL/min/1.73m2 | [facility] | | CAMBODIAN | FILTRATION | | HOSPITAL | | | RATE,ESTIMATED mL/min | | LABORATORY | | | /1.72y8Inmo than 60 | | | | | [...] + + | [facility] | [address] | [place] [address] | [phone] | | HOSPITAL LAB[facility]ATORY | | | [...] + + + + + | Specific [place] | 1.010 | 1.003 - 1.030 | [...] + + | [facility] | [address] | [place] [address] | [phone] | | HOSPITAL LAB[facility]ATORY | | | [...] | Benzodiazepines, | Negative | Negative | [facility] | | Urine, Screen | | [...] the attending | LABORATORY | | physician. Dwzo-fkw-grvjayi drugs may cross react with some methods. [...] + + | Performing | Address | City/State/[facility] Cent[facility]ode | Phone Number | | Organization | | | | + + + + + | [facility] | [address] | [place] [address] | [phone] | | HOSPITAL LABORATORY | | | [...] +---------+ | INDIVIDUAL ASSURANCE | INDIVI | [id number] | Indemn | | | | COMPANY | DUAL | | ity | | | | | ASSURA | | | | | | | NCE CO | | | | | | | MDCR | | | | | | | SUPPL | | | | | + +--------+ +--------+ +---------+ | MEDICARE | MEDICA | [id number] | Medica | +- | | | | RE | | re | [id number] | | | | PART A | | | | | | | AND B | | | | | + +--------+ +--------+ +---------+ | MEDICARE | MEDICA | [id number] | Medica | +- | | | | RE | | re | [phone] | | | | PART A | | | | | | | AND B | | | | | + +--------+ +--------+ +---------+ | MEDICARE | MEDICA | [id number] | Medica | +- | | | | RE | | re | [phone] | | | | PART A | | | | | | | AND B | | | | | + +--------+ +--------+ +---------+ | INDIVIDUAL ASSURANCE | INDIVI | [id number] | Indemn | | | | COMPANY | DUAL | | ity | | | | | ASSURA | | | | | | | NCE CO | | | | | | | MDCR | | | | | | | SUPPL | | | | | + +--------+ +--------+ +---------+ | INDIVIDUAL ASSURANCE | INDIVI | [id number] | Indemn | | | | COMPANY [...] | + +--------+ +--------+ + + | UY HARMON | Person | Self | [birth year] | Home: | [address] | | JOSEPH JESSI | al/Fam | | 1945 | [phone] | [address] [place], [place] | | | jose | | | [phone] | [phone] | + +--------+ +--------+ + + | YU HARMON | Person | Self | [birth year] | Home: | [address] | | JOSEPH JESSI | al/Fam | | 1945 | [phone] | [address] [place], [place] | | | jose | | | [phone] | [phone] | + +--------+ +--------+ + + | YU HARMON | Person | Self | [birth year] | Home: | [address] | | JOSEPH JESSI | al/Fam | | 1945 | [phone] | [address] [place], [place] | | | jose | | | [phone] | [phone] | + +--------+ +--------+ + +
--- OUTSIDE RECORDS SUMMARY | ~2018-07-13 | XMS | Encounter Summary ---
Demographics + + + | Address | [address] | | | [place] [address] | + + + | Home Phone | | + + + | Preferred Language | Unknown | + + + | Marital Status | | + + + | Zoroastrianism Affiliation | 1013 | + + + | Race | Unknown | + + + | Ethnic Group | Unknown | + + + Author + + + | Author | [facility] [employer] | + + + | Organization | [facility] [employer] [employer] | + + + | Address [...] | + + +---------+ + | Jorje Menhcacasse | ECON | Unknown | | + + +---------+ + | Gwendolyn Cho | ECON | Unknown | | + + +---------+ + | Nathalia Weinstein | ECON | Unknown | | + + +---------+ + Care Team Providers + +------+ + | Care Loan Documents Closer Name | Role | Phone | [...] + + | 07/27/ | Hospital | [facility] | See, Medical | Pain | | 2018 | Encounter | [facility] | Record | | | | | RADIOLOGY [address] | | | | | | [address] | | | | | | [place] [address] | | | | | | [phone] | | | +--------+ + + + [...] | 2018 | Visit | | [address] [facility] | | | | | | [place] [address] | | | | | | [phone] | | | | | | | [...] [facility] | [address] | [place] [address] | | + + + + + in this encounter Visit Diagnoses + + | Diagnosis | + + | Pain | + + | Generalized pain | + +"
--- OUTSIDE RECORDS SUMMARY | ~2018-07-13 | XMS | Encounter Summary ---
Demographics + + + | Address | [address] | | | [place] [address] | + + + | Home Phone | | + + + | Preferred Language | Unknown | + + + | Marital Status | | + + + | Confucianist Affiliation | 1013 | + + + | Race | Unknown | + + + | Ethnic Group | Unknown | + + + Author + + + | Author | [facility] | + + + | Organization | [facility] | + + + | Address | [...] Team Providers + +------+ + | Care Nanofabrication Specialist Name | Role | Phone | [...] | | | 2018 | Event | [facility] | ENROLLMENT NURSE [address] | | | | | Operating Room [address] | [place] [address] | | | | | [address] | [phone] | | | | | [place] [address] | | | | | | [phone] | | | +--------+ + + + [...] | 2018 | Visit | | [address] [facility] | | | | | | [place] [address] | | | | | | [phone] | | | | | | | [...] | | | | | 30 Minutes, Bucket Wash Operator To Dee Randall | | PDT [...]
--- OUTSIDE RECORDS SUMMARY | ~2018-07-13 | XMS | Encounter Summary ---
Demographics + + + | Address | [address] | | | [place] [address] | + + + | Home Phone | | + + + | Preferred Language | Unknown | + + + | Marital Status | | + + + | Confucianist Affiliation | 1013 | + + + | Race | Unknown | + + + | Ethnic Group | Unknown | + + + Author + + + | Author | [employer] | + + + | Organization | [facility] [employer] | + + + | Address | [...] Team Providers + +------+ + | Care Home Economics Expert Name | Role | Phone | [...] + + | 06/13/ | Hospital | [facility] | Alfredo Casillas, | Closed compression | | 2018 | Encounter | Medical Center | [address] | fracture of fifth | | | | Clinical Decision | [place] [address] | lumbar vertebra, | | | | [address] | [phone] | initial encounter | | | | [place] [address] | | ([facility]) | | | | [phone] | | | +--------+ + + + [...] directed. Remove the small bandages on your uwruceel84 to 48hours after the surgery. Don t shower or soak in a bathtub for1 to 2days after the surgery. Use an ice packor bag of frozen peas or something similar wrapped in a thin towel to reduce the swelling and pain around incision sites. Put the ice pack on the area for20 minutes,then remove it ajj21tzevvrv. Repeat as needed. Wear your brace, if you were told to do so by your doctor. And to help stay flexible, be nd as much as the brace allows you to. For the first1 to 2days after the surgery, keep your head raised up when you are lyi ng down. Take short walks. Start by walking sir2xxwocwj at a time. Then gradually build up yo ur time and distance. Don t drive gqp5thck after surgery. And never drive while taking [...] healthcare provider Shaking chills Date Last Reviewed: 09/15/201519997054-7855 The [employer]. [address] [place] [address]. All righ ts reserved. This information is [...] | 2017 | Visit | | [address] [facility] | | | | | | [place] [address] | | | | | | [phone] | | | | | | | [...] MAYTE LOAIZA | [address] | [place] [address] | | + + + + + POCT glucose (06/13/2018 6:47 AM) + + + + + | Component | Value | Ref Range | Performed At | + + + + + | GLUCOSE,POC SCREEN | 70Comment: Testing | 65 - 99 mg/dL | [facility] | | | performed at [facility];[address] | | | | | [address];[place] | | | | | [address] | | | + + + + + + + + + + | Performing | Address | City/State/Zipcode | Phone Number | | Organization | | | | + + + + + | [facility] | [address] | [place] [address] | | + + + + + [...] | | | | | at 0833, [facility] | | | | | | + [...]
--- OUTSIDE RECORDS SUMMARY | ~2018-07-13 | XMS | Encounter Summary ---
Demographics + + + | Address | [address] | | | [place] [address] | + + + | Home Phone | | + + + | Preferred Language | Unknown | + + + | Marital Status | | + + + | Denominational Affiliation | 1013 | + + + | Race | Unknown | + + + | Ethnic Group | Unknown | + + + Author + + + | Author | [facility] | + + + | Organization | [facility] | + + + | Address | [...] Providers + +------+ + | Care Manager Development Name | Role | Phone | + +------+ + | Wendi Aiken PA-C | PCP | | + +------+ + Encounter Details +--------+ + + + + | Date | Type | Department | Care Team | Description | +--------+ + + + + | 06/12/ | Orders Only | [facility] | Alfredo Casillas DO | | | 2017 | | [facility] | [address] [facility] | | | | | [address] | [place] [address] | | | | | Blvd [place], [place] | [phone] | | | | | [address] | [...] [place] | | | | | | [place] [address] | | | | | | [phone] | | | | | | | | +--------+---------+ + + + as of this encounter Visit Diagnoses Not on filein this encounter"
--- OUTSIDE RECORDS SUMMARY | ~2018-07-13 | XMS | Encounter Summary ---
Demographics + + + | Address | [address] | | | [place] [address] | + + + | Home Phone | | + + + | Preferred Language | Unknown | + + + | Marital Status | | + + + | Sikhism Affiliation | 1013 | + + + | Race | Unknown | + + + | Ethnic Group | Unknown | + + + Author + + + | Author | [employer] [facility] | + + + | Organization | [facility] | + + + | Address | [...] Team Providers + +------+ + | Care Size Painter Name | Role | Phone | + +------+ + | Oxana Nye NP | PCP | | + +------+ + Reason for Visit +--------+ + | Reason | Comments | +--------+ + | Other | referral | +--------+ + Encounter Details +--------+ + + + + | Date | Type | Department | Care Team | Description | +--------+ + + + + | 06/05/ | Telephone | [facility] | Jennifer Hicks, WHIPPED TOPPING FINISHER | Other (referral ) | | 2017 | | [facility] | | | | | | MEDICINE RADHA | | | | | | [address] [facility] | | | | | | [place] | | | | | | [address] | | | | | | [phone] | | | +--------+ + + + [...] | 2017 | Visit | | [address] [facility] | | | | | | [place] [address] | | | | | | [phone] | | | | | | | | +--------+---------+ + + + as of this encounter Visit Diagnoses Not on filein this encounter"
--- OUTSIDE RECORDS SUMMARY | ~2018-07-13 | XMS | Encounter Summary ---
Demographics + + + | Address | [address] | | | [place] [address] | + + + | Home Phone | | + + + | Preferred Language | Unknown | + + + | Marital Status | | + + + | Tenriism Affiliation | 1013 | + + + | Race | Unknown | + + + | Ethnic Group | Unknown | + + + Author + + + | Author | [employer] [facility] | + + + | Organization | [facility] | + + + | Address | [...] Providers + +------+ + | Care Guest Advisor Name | Role | Phone | + +------+ + | Wendi Aiken PA-C | PCP | | + +------+ + Encounter Details +--------+ + + + + | Date | Type | Department | Care Team | Description | +--------+ + + + + | 06/09/ | Telephone | [facility] | Jennifer Hicks CMA | | | 2017 | | [facility] | | | | | | MEDICINE [facility] | | | | | | [address] | | | | | | [place] | | | | | | [address] | | | | | | [phone] | | | +--------+ + + + [...] | | | | | [place] [address] | | | | | | [phone] | | | | | | | | +--------+---------+ + + + as of this encounter Visit Diagnoses Not on filein this encounter"
--- OUTSIDE RECORDS SUMMARY | ~2018-07-13 | XMS | Encounter Summary ---
Demographics + + + | Address | [address] | | | [place] [address] | + + + | Home Phone | | + + + | Preferred Language | Unknown | + + + | Marital Status | | + + + | Restoration Affiliation | 1013 | + + + | Race | Unknown | + + + | Ethnic Group | Unknown | + + + Author + + + | Author | [facility] [facility] | + + + | Organization | [facility] | + + + | Address | [...] Providers + +------+ + | Care Die Cutter Apprentice Name | Role | Phone | [...] is | | 2018 | | [facility] | [address] | returning a call to | | | | [address] | [place] [address] | Vicki about | | | | [place] | [phone] | referral. She needs | | | | [address] | | to schedule ) | | | | [phone] | | | +--------+ + + + [...] ST | | | | | | [place] [address] | | | | | | [phone] | | | | | | | | +--------+---------+ + + + as of this encounter Visit Diagnoses Not on filein this encounter"
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
--- OUTSIDE RECORDS SUMMARY | ~2018-07-13 | XMS | Encounter Summary ---
Demographics + + + | Address | [address] | | | [place] [address] | + + + | Home Phone | | + + + | Preferred Language | Unknown | + + + | Marital Status | | + + + | Buddhist Affiliation | 1013 | + + + | Race | Unknown | + + + | Ethnic Group | Unknown | + + + Author + + + | Author | [facility] [facility] | + + + | Organization | [facility] | + + + | Address | [...] Team Providers + +------+ + | Care Gate Technician Name | Role | Phone | [...] (Request to | | 2017 | | [facility] | [place] | speak to [place]) | | | | [address] | | | | | | [place] | | | | | | [address] | | | | | | [phone] | | | +--------+ + + + [...] | Visit | | [address] [facility] | | | | | | [place] [address] | | | | | | [phone] | | | | | | | | +--------+---------+ + + + as of this encounter Visit Diagnoses Not on filein this encounter"
--- OUTSIDE RECORDS SUMMARY | ~2018-07-13 | XMS | Encounter Summary ---
Demographics + + + | Address | [address] | | | [place] [address] | + + + | Home Phone | | + + + | Preferred Language | Unknown | + + + | Marital Status | | + + + | Roman Catholic Affiliation | 1013 | + + + | Race | Unknown | + + + | Ethnic Group | Unknown | + + + Author + + + | Author | [facility] | + + + | Organization | [facility] | + + + | Address | [...] | + + +---------+ + | Gwendolyn Coh | ECON | Unknown | | + + +---------+ + | Nathalia Weinstein | ECON | Unknown | | + + +---------+ + Care Team Providers + +------+ + | Care Rug Touch Up Painter Name | Role | Phone | + +------+ + | Wendi Aiken PA-C | PCP | | + +------+ + Encounter Details +--------+ + + + + | Date | Type | Department | Care Team | Description | +--------+ + + + + | 06/13/ | Orders Only | [facility] | Jennifer Hicks, SENIOR COMMUNICATIONS ENGINEER | | | 2017 | | [facility] | | | | | | MEDICINE [facility] | | | | | | [address] | | | | | | [place] | | | | | | [address] | | | | | | [phone] | | | +--------+ + + + [...] | | | | | [place] [address] | | | | | | [phone] | | | | | | | | +--------+---------+ + + + as of this encounter Visit Diagnoses Not on filein this encounter"
--- OUTSIDE RECORDS SUMMARY | ~2018-07-13 | XMS | Encounter Summary ---
Demographics + + + | Address | [address] | | | [place] [address] | + + + | Home Phone | | + + + | Preferred Language | Unknown | + + + | Marital Status | | + + + | Restoration Affiliation | 1013 | + + + | Race | Unknown | + + + | Ethnic Group | Unknown | + + + Author + + + | Author | [facility] | + + + | Organization | [facility] | + + + | Address | [...] Team Providers + +------+ + | Care Captain Room Service Name | Role | Phone | + +------+ + | Wendi Aiken PA-C | PCP | | + +------+ + Encounter Details +--------+ + + + + | Date | Type | Department | Care Team | Description | +--------+ + + + + | 06/13/ | Procedure | [facility] | | | | 2018 | [facility] | | | | | | Operating Room [address] | | | | | | [facility] | | | | | | [place] [address] | | | | | | [phone] | | | +--------+ + + + [...] | | | | | [place] [address] | | | | | | [phone] | | | | | | | | +--------+---------+ + + + as of this encounter Visit Diagnoses Not on filein this encounter"
--- OUTSIDE RECORDS SUMMARY | ~2018-07-13 | XMS | Encounter Summary ---
Demographics + + + | Address | [address] | | | [place] [address] | + + + | Home Phone | | + + + | Preferred Language | Unknown | + + + | Marital Status | | + + + | Zoroastrian Affiliation | 1013 | + + + | Race | Unknown | + + + | Ethnic Group | Unknown | + + + Author + + + | Author | [employer] [facility] | + + + | Organization | [facility] | + + + | Address | [...] Team Providers + +------+ + | Care Ground Water Pump Installer Name | Role | Phone | [...] | KYPHOPLASTY | | 2018 | | [facility] | [address] | | | | | Operating Room [address] | [place] [address] | | | | | [address] | [phone] | | | | | [place] [address] | | | | | | [phone] | | | +--------+---------+ + + + [...] directed. Remove the small bandages on your zcschang62 to 48hours after the surgery. Don t shower or soak in a bathtub for1 to 2days after the surgery. Use an ice packor bag of frozen peas or something similar wrapped in a thin towel to reduce the swelling and pain around incision sites. Put the ice pack on the area for20 minutes,then remove it [id number]. Repeat as needed. Wear your brace, if you were told to do so by your doctor. And to help stay flexible, be nd as much as the brace allows you to. For the first1 to 2days after the surgery, keep your head raised up when you are lyi ng down. Take short walks. Start by walking ofo8vbtatti at a time. Then gradually build up yo ur time and distance. Don t drive squ9fmnj after surgery. And never drive while taking [...] healthcare provider Shaking chills Date Last Reviewed: 09/15/201519993433-[address] [place], [place] [address]. All righ ts reserved. This information is [...] | 2017 | Visit | | [address] [facility] | | | | | | [place] [address] | | | | | | [phone] | | | | | | | [...] [facility] | [address] | [facility] [address] | | + + + + + POCT glucose (06/13/2018 6:47 AM) + + + + + | Component | Value | Ref Range | Performed At | + + + + + | GLUCOSE,POC SCREEN | 70Comment: Testing | 65 - 99 mg/dL | [facility] | | | performed at [facility];[address] | | | | | [address];[place] | | | | | [address] | | | + + + + + + + + + + | Performing | Address | City/State/Zipcode | Phone Number | | Organization | | | | + + + + + | [facility] | [address] | [place] [address] | | + + + + + [...] mLs | | Back | | 0.5% -[id number] 30 mL in lidocaine | | 8 [...] | | | | | at 0833, [facility] | | | | | [...]
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
--- OUTSIDE RECORDS SUMMARY | ~2018-07-13 | XMS | Clinical Summary ---
Demographics + + + | Address | [address] | | | [place] [address] | + + + | Home Phone | | + + + | Preferred Language | Unknown | + + + | Marital Status | | + + + | Sikh Affiliation | 1013 | + + + | Race | Unknown | + + + | Ethnic Group | Unknown | + + + Author + + + | Author | [employer] | + + + | Organization | [facility] | + + + | Address [...] Providers + +------+ + | Care Special Procedures Nurse Name | Role | Phone | [...] Overview: Added automatically from request for surgery [id number] | + + + + + | [...] encounter | | | | | | ([facility]) (Primary Dx); | | | | | [...] encounter | | | | | | ([facility]) | +--------+ + + + + | [...] | 07/19/ | Office | | Alfredo aCsillas DO | | | 2018 | Visit | | [address] [facility] | | | | | | [place] [address] | | | | | | [phone] | | | | | | | [...] [facility] | [address] | [place] [address] | | + + + + + [...] | + + + + + | [facility] | [address] | [place] [address] | | + + + + + POCT glucose (06/13/2018 6:47 AM) + + + + + | Component | Value | Ref Range | Performed At | + + + + + | GLUCOSE,POC SCREEN | 70Comment: Testing | 65 - 99 mg/dL | [facility] | | | performed at [facility];[address] | | | | | [address];[place] | | | | | [address] | | | + + + + + + + + + + | Performing | Address | City/State/Zipcode | Phone Number | | Organization | | | | + + + + + | [facility] | [address] | [place] [address] | | + + + + + [...] W | | LABORATORY | | | [facility], | | | | | [place] [address] | | | + + + + + + + | Specimen | + + | Blood | + + + + + + + | Performing | Address | City/State/Zipcode | Phone Number | | Organization | | | | + + + + + | [facility] | [address] | [place] [address] | [phone] | | PATRICK | Andrzej. | | [...] the | | | | | MDRD IDTX traceable | | | | | equation.Testing | | | | | performed at [facility], [address] | | | | | [facility], | | | | | [place] [address] | | | + + + + + + + | Specimen | + + | Blood | + + + + + + + | Performing | Address | City/State/Zipcode | Phone Number | | Organization | | | | + + + + + | [facility] | [address] | [place] [address] | [phone] | | LABORATORY | [address]vd[address] | | [...] + + + + | Calculated P Grant | 80 | degrees | [facility] | + + + + + | Calculated R Grant | -9 | degrees | [facility] | + + + + + | Calculated T Grant | 69 | degrees | [facility] [...] | + + + + + | [facility] | [address] | [place] [address] | | + + + + + MRI lumbar spine without contrast (05/09/2018 2:54 AM) + + + | Narrative | Performed At | + + + | This is a non-reportable procedure without a radiologist report and | [facility] | | is used for image storage only | RADIOLOGY | + + + + + + + + | Performing | Address | City/State/Zipcode | Phone Number | | Organization | | | | + + + + + | [facility] | [address] | [place] [address] | | + + + + + [...] +------+-------+ + | MEDICARE | MEDICA | [id number] | | | [address] | | | RE | | | | [place] [address] | | | IP-OP | | | | | + +--------+ +------+-------+ + | COMMERCIAL OTHER | COMMER | [id number] | | | | | | CIAL [...] jose | | | [address] | [place] [address] | + +--------+ +--------+ + +
--- OUTSIDE RECORDS SUMMARY | ~2018-07-13 | XMS | Encounter Summary ---
Demographics + + + | Address | [address] | | | [place] [address] | + + + | Home Phone | | + + + | Preferred Language | Unknown | + + + | Marital Status | | + + + | Islam Affiliation | 1013 | + + + | Race | Unknown | + + + | Ethnic Group | Unknown | + + + Author + + + | Author | [employer] | + + + | Organization | [facility] | + + + | Address | [...] Team Providers + +------+ + | Care Dairy Farm Worker Name | Role | Phone | [...] + + | 06/13/ | Hospital | [facility] | Alfredo Casillas, | Closed compression | | 2018 | Encounter | Medical Center | [address] | fracture of fifth | | | | Clinical Decision | [place] [address] | lumbar vertebra, | | | | [address] | [phone] | initial encounter | | | | [place] [address] | | ([facility]) | | | | [phone] | | | +--------+ + + + [...] directed. Remove the small bandages on your lumlnpud36 to 48hours after the surgery. Don t shower or soak in a bathtub for1 to 2days after the surgery. Use an ice packor bag of frozen peas or something similar wrapped in a thin towel to reduce the swelling and pain around incision sites. Put the ice pack on the area for20 minutes,then remove it [id number]. Repeat as needed. Wear your brace, if you were told to do so by your doctor. And to help stay flexible, be nd as much as the brace allows you to. For the first1 to 2days after the surgery, keep your head raised up when you are lyi ng down. Take short walks. Start by walking [id number] at a time. Then gradually build up yo ur time and distance. Don t drive [id number] after surgery. And never drive while taking [...] healthcare provider Shaking chills Date Last Reviewed: 09/15/201519991927-9148 The Virtual Web. [address] [place] [address]. All righ ts reserved. This information is [...] | 2017 | Visit | | [address] [facility] | | | | | | [place] [address] | | | | | | [phone] | | | | | | | [...] MAYTE [facility] | [address] | [facility] [address] | | + + + + + POCT glucose (06/13/2018 6:47 AM) + + + + + | Component | Value | Ref Range | Performed At | + + + + + | GLUCOSE,POC SCREEN | 70Comment: Testing | 65 - 99 mg/dL | [facility] | | | performed at [facility];[address] | | | | | [address];[place] | | | | | [address] | | | + + + + + + + + + + | Performing | Address | City/State/Zipcode | Phone Number | | Organization | | | | + + + + + | [facility] | [address] | [place] [address] | | + + + + + [...] | | | | | at [address], [facility] | | | | [...]
--- OUTSIDE RECORDS SUMMARY | ~2018-07-13 | XMS | Encounter Summary ---
Demographics + + + | Address | [address] | | | [place] [address] | + + + | Home Phone | | + + + | Preferred Language | Unknown | + + + | Marital Status | | + + + | Tenriism Affiliation | 1013 | + + + | Race | Unknown | + + + | Ethnic Group | Unknown | + + + Author + + + | Author | [email or web address] | + + + | Organization | [facility] | + + + | Address | [...] Providers + +------+ + | Care Triage Clinician Name | Role | Phone | [...] + + | 07/27/ | Hospital | [facility] | See, Medical | Pain | | 2018 | Encounter | [facility] | Record | | | | | RADIOLOGY [address] | | | | | | [address] | | | | | | [place] [address] | | | | | | [phone] | | | +--------+ + + + [...] | Visit | | [address] [facility] | | | | | | [place] [address] | | | | | | [phone] | | | | | | | [...] [facility] | [address] | [place] [address] | | + + + + + in this encounter Visit Diagnoses + + | Diagnosis | + + | Pain | + + | Generalized pain | + +"
--- OUTSIDE RECORDS SUMMARY | ~2018-07-13 | XMS | Encounter Summary ---
Demographics + + + | Address | [address] | | | [place] [address] | + + + | Home Phone | | + + + | Preferred Language | Unknown | + + + | Marital Status | | + + + | Zoroastrianism Affiliation | 1013 | + + + | Race | Unknown | + + + | Ethnic Group | Unknown | + + + Author + + + | Author | [employer] | + + + | Organization | [facility] [employer] | + + + | Address | [...] Providers + +------+ + | Care Residential Fee Appraiser Name | Role | Phone | [...] + + | 07/27/ | Hospital | [facility] | See, Medical | Pain | | 2018 | Encounter | [facility] | Record | | | | | RADIOLOGY [address] | | | | | | [address] | | | | | | [place] [address] | | | | | | [phone] | | | +--------+ + + + [...] | 2018 | Visit | | [address] [facility] | | | | | | [place] [address] | | | | | | [phone] | | | | | | | [...] [facility] | [address] | [place] [address] | | + + + + + in this encounter Visit Diagnoses + + | Diagnosis | + + | Pain | + + | Generalized pain | + +"
--- OUTSIDE RECORDS SUMMARY | ~2018-07-13 | XMS | Encounter Summary ---
Demographics + + + | Address | [address] | | | [place] [address] | + + + | Home Phone | | + + + | Preferred Language | Unknown | + + + | Marital Status | | + + + | Quaker Affiliation | 1013 | + + + | Race | Unknown | + + + | Ethnic Group | Unknown | + + + Author + + + | Author | [email or web address] | + + + | Organization | [facility] | + + + | Address | [...] Team Providers + +------+ + | Care Criminal Research Specialist Name | Role | Phone | [...] + + | 07/13/ | Documentati | [facility] | [facility] | Referral ( | | 2018 | on Only | [facility] | Referral Department | referral back ) | | | | MEDICINE [facility] | [address] | | | | | PAIN [address] | [place] [address] | | | | | [place], [place] | [phone] | | | | | [address] | | | | | | [phone] | | | +--------+ + + + [...] | 2017 | Visit | | [address] [facility] | | | | | | [place] [address] | | | | | | [phone] | | | | | | | | +--------+---------+ + + + as of this encounter Visit Diagnoses Not on filein this encounter"
--- OUTSIDE RECORDS SUMMARY | ~2018-07-13 | XMS | Encounter Summary ---
Demographics + + + | Address | [address] | | | [place] [address] | + + + | Home Phone | | + + + | Preferred Language | Unknown | + + + | Marital Status | | + + + | Mormonism Affiliation | 1013 | + + + | Race | Unknown | + + + | Ethnic Group | Unknown | + + + Author + + + | Author | [employer] | + + + | Organization | [facility] | + + + | Address | [...] | | + + +---------+ + | Gonzlaez Menchaca | ECON | Unknown | | + + +---------+ + | Gwendolyn Cho | ECON | Unknown | | + + +---------+ + | Nathalia Weinstein | ECON | Unknown | | + + +---------+ + Care Team Providers + +------+ + | Care Showroom Sales Assistant Name | Role | Phone | + +------+ + | Wendi Aiken PA-C | PCP | | + +------+ + Encounter Details +--------+ + + + + | Date | Type | Department | Care Team | Description | +--------+ + + + + | 06/07/ | Hospital | [facility] | Alfredo Casillas DO | | | 2018 | Encounter | [facility] | [address] [facility] | | | | | Preadmission | [place] [address] | | | | | Services [address] | [phone] | | | | | [address] [place], [place] | | | | | | [...] 06/07/18 encounter (Hospital Encounter) wit h [facility] ROOM 5 Medication Sig INSTRUCTIONS [...] about all medicines you take. This includes ncxy-oap-wmwntex medicines, herbs, vitamins, and other supplements. Ask your healthcare provider if there are medicines you must stop taking before the proc edure. Do not eat or drink anything for at nneha7kafrf before the procedure. Arrange for an adult [...] or unrelieved back pain Date Last Reviewed: 04/30/201619991722-5672 The [employer]. [address] [place] [address], [place] [address]. All righ ts reserved. This information is [...] | 2018 | Visit | | [address] [facility] | | | | | | [place] [address] | | | | | | [phone] | | | | | | | [...] the | | | | | MDRD IDNH traceable | | | | | equation.Testing | | | | | performed at [facility], [address] | | | | | [facility], | | | | | [place] [address] | | | + + + + + + + | Specimen | + + | Blood | + + + + + + + | Performing | Address | City/State/Zipcode | Phone Number | | Organization | | | | + + + + + | [facility] | [address] | [place] [address] | [phone] | | LABORATORY | Blvd. | | [...] | [facility] | | | performed at [facility], [address] | | LABORATORY | | | [facility], | | | | | [place] [address] | | | + + + + + + + | Specimen | + + | Blood | + + + + + + + | Performing | Address | City/State/Zipcode | Phone Number | | Organization | | | | + + + + + | [facility] | [address] [place] [address] | [place] [address] | [phone] | | LABORATORY | Blvd. | | [...] + + + + | Calculated P [place] | 80 | degrees | [facility] | + + + + + | Calculated R [place] | -9 | degrees | [facility] | + + + + + | Calculated T [place] | 69 | degrees | [facility] [...] | + + + + + | [facility] | [address] | [facility] [place] [address] | | + + + + + in this encounter Visit Diagnoses Not on filein this encounter
--- OUTSIDE RECORDS SUMMARY | ~2018-07-13 | XMS | Encounter Summary ---
Demographics + + + | Address | [address] | | | [place] [address] | + + + | Home Phone | | + + + | Preferred Language | Unknown | + + + | Marital Status | | + + + | Uatsdin Affiliation | 1013 | + + + | Race | Unknown | + + + | Ethnic Group | Unknown | + + + Author + + + | Author | [employer] | + + + | Organization | [facility] | + + + | Address | [...] Providers + +------+ + | Care Home Aide Name | Role | Phone | + +------+ + | Wendi Aiken PA-C | PCP | | + +------+ + Encounter Details +--------+ + + + + | Date | Type | Department | Care Team | Description | +--------+ + + + + | 05/26/ | Procedure | [facility] | | | | 2018 | Pass | [facility] | | | | | | RADIOLOGY [address] | | | | | | [place] [address] | | | | | | [phone] | | | +--------+ + + + [...] | | | | | [place] [address] | | | | | | [phone] | | | | | | | | +--------+---------+ + + + as of this encounter Visit Diagnoses Not on filein this encounter"
--- OUTSIDE RECORDS SUMMARY | ~2018-07-13 | XMS | Encounter Summary ---
Demographics + + + | Address | [address] | | | [place] [address] | + + + | Home Phone | | + + + | Preferred Language | Unknown | + + + | Marital Status | | + + + | Anglican Affiliation | 1013 | + + + | Race | Unknown | + + + | Ethnic Group | Unknown | + + + Author + + + | Author | [employer] | + + + | Organization | [facility] [employer] | + + + | Address [...] Team Providers + +------+ + | Care Vehicle Inspector Name | Role | Phone | + +------+ + | Wendi Aiken PA-C | PCP | | + +------+ + Encounter Details +--------+ + + + + | Date | Type | Department | Care Team | Description | +--------+ + + + + | 05/26/ | Procedure | [facility] PHYSICIAN | | | | 2018 | Pass | [facility] | | | | | | RADIOLOGY [address] | [address] | | | | | | [place] [address] | | | | | | [phone] | | | +--------+ + + + [...] | | | | | [place] [address] | | | | | | [phone] | | | | | | | | +--------+---------+ + + + as of this encounter Visit Diagnoses Not on filein this encounter"
--- OUTSIDE RECORDS SUMMARY | ~2018-07-13 | XMS | Encounter Summary ---
Demographics + + + | Address | [address] | | | [place] [address] | + + + | Home Phone | | + + + | Preferred Language | Unknown | + + + | Marital Status | | + + + | Faith Affiliation | 1013 | + + + | Race | Unknown | + + + | Ethnic Group | Unknown | + + + Author + + + | Author | [employer] | + + + | Organization | [facility] | + + + | Address | [...] Team Providers + +------+ + | Care Communications Equipment Operator Name | Role | Phone [...] + + | 06/05/ | Telephone | [facility] | Jennifer Hicks, SUPERVISOR GRADING | Other (referral ) | | 2017 | | [facility] | | | | | | MEDICINE [facility] | | | | | | [address] [facility] | | | | | | [place] | | | | | | [address] | | | | | | [phone] | | | +--------+ + + + [...] | 2017 | Visit | | [address] [facility] | | | | | | [place] [address] | | | | | | [phone] | | | | | | | | +--------+---------+ + + + as of this encounter Visit Diagnoses Not on filein this encounter"
--- OUTSIDE RECORDS SUMMARY | ~2018-07-13 | XMS | Encounter Summary ---
Demographics + + + | Address | [address] | | | [place] [address] | + + + | Home Phone | | + + + | Preferred Language | Unknown | + + + | Marital Status | | + + + | Quaker Affiliation | 1013 | + + + | Race | Unknown | + + + | Ethnic Group | Unknown | + + + Author + + + | Author | [employer] | + + + | Organization | [facility] | + + + | Address | [...] Providers + +------+ + | Care Advertising Specialist Name | Role | Phone | [...] | | | 2018 | Event | [facility] | COMMANDING OFFICER MOTORIZED SQUAD [address] | | | | | Operating Room [address] | [place] [address] | | | | | [address] | [phone] | | | | | [place] [address] | | | | | | [phone] | | | +--------+ + + + [...] | [address] [facility] | | | | | | [place] [address] | | | | | | [phone] | | | | | | | [...] | | | | | 30 Minutes, Color Adviser To Dee Randall | | PDT | [...]
--- OUTSIDE RECORDS SUMMARY | ~2018-07-13 | XMS | Encounter Summary ---
Demographics + + + | Address | [address] | | | [place] [address] | + + + | Home Phone | | + + + | Preferred Language | Unknown | + + + | Marital Status | | + + + | Moravian Affiliation | 1013 | + + + | Race | Unknown | + + + | Ethnic Group | Unknown | + + + Author + + + | Author | [employer] | + + + | Organization | [facility] | + + + | Address | [...] Team Providers + +------+ + | Care Metals Analyst Name | Role | Phone | + +------+ + | Wendi Aiken PA-C | PCP | | + +------+ + Encounter Details +--------+ + + + + | Date | Type | Department | Care Team | Description | +--------+ + + + + | 07/04/ | Telephone | [facility] | Jennifer Hicks CMA | | | 2017 | | [facility] | | | | | | MEDICINE [facility] | | | | | | PAIN [address] | | | | | | [place] | | | | | | [address] | | | | | | [phone] | | | +--------+ + + + [...] | | | | | [place] [address] | | | | | | [phone] | | | | | | | | +--------+---------+ + + + as of this encounter Visit Diagnoses Not on filein this encounter"
--- OUTSIDE RECORDS SUMMARY | ~2018-07-13 | XMS | Encounter Summary ---
Demographics + + + | Address | [address] | | | [place] [address] | + + + | Home Phone | | + + + | Preferred Language | Unknown | + + + | Marital Status | | + + + | Rastafari Affiliation | 1013 | + + + | Race | Unknown | + + + | Ethnic Group | Unknown | + + + Author + + + | Author | [employer] | + + + | Organization | [facility] | + + + | Address [...] Team Providers + +------+ + | Care Lawn Sprinkler Installer Name | Role | Phone | + +------+ + | Oxana Nye NP | PCP | | + +------+ + Encounter Details +--------+ + + + + | Date | Type | Department | Care Team | Description | +--------+ + + + + | 05/31/ | Documentati | [facility] | Maykel Hutchins MD | | | 2018 | on Only | [facility] | [address] | | | | | [address] | [place] [address] | | | | | [place], [place] | [phone] | | | | | [address] | | | | | | [phone] | | | +--------+ + + + [...] | 2017 | Visit | | [address] [facility] | | | | | | [facility] [place] [address] | | | | | | [phone] | | | | | | | | +--------+---------+ + + + as of this encounter Visit Diagnoses Not on filein this encounter"
[~2018-07-13 14:27] MED LIST changes: +DOXYCYCLINE HY100 MG PO
--- OUTSIDE RECORDS SUMMARY | 2018-07-13 14:32 | XMS ---
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 Care History Medical/Surgical 06/28/2018 [facility] HISTORY:\T\nbsp; DM/ COPD, RESTLESS LEGS/ DEPRESSION/ TARDIVE DYSKINESIA/ CHRONIC PAIN/ MULTIPLE OVERDOSE ATTEMPTS/ SCOLIOSIS/ DEGEN DISC DISEASE/ BONE SPUR 03/24/2018 [facility] - CHW is working with patient and attending all [facility] apts with patient. - CHW is attending PCP apts with patient. Care Recommendation: This patient has had 5 or more Emergency Department visits in the last 12 months. Patient requires education on the scope and purpose of the ED as an acute care provider not a Primary Care Provider and should not be utilized for chronic conditions. If patient returns to ED please contact Community Health WorkerVirginie at [phone]. These are guidelines and the provider should exercise clinical judgment when providing care. E.D. VISIT COUNT (12 MO.) 1 [facility] 12 [facility]. TOTAL 13 NOTE: Visits indicate total known visits. ED/UCC VISIT TRACKING (12 MO.) 07/13/2018 14:27 [facility]air[facility] Domonique [facility]ary[facility] [place] TYPE: Emergency COMPLAINT: - MEDICAL CLEARANCE 07/12/2018 21:10 [facility]TE [place] TYPE: Emergency COMPLAINT: - MEDICAL CLEARANCE 07/05/2018 18:11 [facility]air[facility] Domonique [facility] [place] TYPE: Emergency COMPLAINT: - CHEST PAIN DIAGNOSES: - Other chest pain - Allergy status to other drugs, medicaments and biological substances status - Other chest pain - Type 2 diabetes mellitus without complications - Major depressive disorder, single episode, unspecified - Other fdc (current) 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 - Chronic obstructive pulmonary disease, unspecified - Chest pain, unspecified - USP (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 of aspirin - USP (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 of opiate analgesic 06/23/2018 19:50 [facility]bie [facility]KEON [place] TYPE: Emergency DIAGNOSES: - Borderline personality disorder - Mental Eval - Suicidal ideations - Suicidal 06/15/2018 20:41 [facility] [place] TYPE: Emergency COMPLAINT: - BACKPAIN/FALL DIAGNOSES: - Type 2 diabetes mellitus without complications - Other specified postprocedural states - USP (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 of aspirin - Low back pain - Unspecified fall, initial encounter - Other fdc (current) 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 06/04/2018 05:40 [facility] [place] TYPE: Emergency COMPLAINT: - BACK/NECK PAIN- NON INJURY DIAGNOSES: - terminal superintendent (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 of aspirin - Allergy status to other drugs, medicaments and biological substances status - Other fdc (current) 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 - Other chronic pain - Type 2 diabetes mellitus without complications - Suicidal ideations - Cervicalgia - Low back pain 03/25/2018 11:08 [facility] [place] TYPE: Emergency COMPLAINT: - BACK PAIN/INJURY DIAGNOSES: - Chronic obstructive pulmonary disease, unspecified - Other and unspecified overexertion or strenuous movements or postures, initial encounter - Allergy status to other drugs, medicaments and biological substances status - Low back pain - OTHER AND UNSPECIFIED OVREXRTN OR STRNOUS MOVE/PST - Strain of muscle, fascia and tendon of lower back, initial encounter - Other terminal superintendent (current) 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 - terminal superintendent (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 of aspirin - Type 2 diabetes mellitus without complications 02/24/2018 15:35 [facility] [place] TYPE: Emergency COMPLAINT: - STROKE 02/15/2018 23:18 [facility]ZZ[facility]TE [place] TYPE: Emergency COMPLAINT: - GLF,UNKNOWN INJURIES DIAGNOSES: - Fall on same level, unspecified, initial encounter - Chronic obstructive pulmonary disease, unspecified - Type 2 diabetes mellitus without complications - Major depressive disorder, single episode, unspecified - Other terminal superintendent (current) 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 - Allergy status to other drugs, medicaments and biological substances status - Pleurodynia - Contusion of left front wall of thorax, initial encounter 02/11/2018 21:20 [facility] [place] TYPE: Emergency COMPLAINT: - POSS OD DIAGNOSES: - Allergy status to other drugs, medicaments and biological substances status - Poisoning by antiparkinsonism drugs and other central muscle-tone depressants, intentional self-harm, initial encounter - Other terminal superintendent (current) 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 - Type 2 diabetes mellitus without complications - Restless legs syndrome - terminal superintendent (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 of non-steroidal anti-inflammatories (NSAID) - Encounter for other general examination 11/18/2017 13:06 LIZZETTE [place] TYPE: Emergency COMPLAINT: - MEDICAL CLEARANCE DIAGNOSES: - Restless legs syndrome - Low back pain - Allergy status to other drugs, medicaments and biological substances status - Suicidal ideations - Pain in right shoulder - Other chronic pain - Type 2 diabetes mellitus without complications - Other fdc (current) 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 - 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 [place] TYPE: Emergency COMPLAINT: - FALL,RIB PAIN DIAGNOSES: - Contusion of right front wall of thorax, initial encounter - Allergy status to other drugs, medicaments and biological substances status - Other fall on same level, initial encounter - Other fdc (current) 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 - Allergy status to narcotic agent status - Chronic obstructive pulmonary disease, unspecified - Type 2 diabetes mellitus without complications - Pleurodynia - terminal superintendent (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 of aspirin - Major depressive disorder, single episode, unspecified INPATIENT VISIT TRACKING (12 MO.) No inpatient visits to display in this time frame [email or web address]
== END 2018-07-13 18:49 | disposition home or self-care (01) ==
LOC: ED 14:27
DX: S60.921A Unspecified superficial injury of right hand, initial encounter (principal); S10.90XA Unspecified superficial injury of unspecified part of neck, initial encounter; F32.9 Major depressive disorder, single episode, unspecified; E11.9 Type 2 diabetes mellitus without complications; Z88.8 Allergy status to other drugs, medicaments and biological substances; Z79.899 Other long term (current) 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; X78.1XXA Intentional self-harm by knife, initial encounter
CPT/HCPCS: 36415; 80053; 80176; 81001; 84443; 85025; 99285; G0480

== ENCOUNTER 2019-02-05 05:23 | Emergency (ER) | payer MEDICARE, OTHER ==
[~2019-02-05] VITALS: Ht 154.9 cm; Wt 51.7 kg
--- OUTSIDE RECORDS SUMMARY | ~2019-02-05 | XMS | Encounter Summary ---
Demographics + + + | Address | [address] | | | [place] [address] | + + + | Home Phone | | + + + | Preferred Language | Unknown | + + + | Marital Status | | + + + | Moravian Affiliation | 1013 | + + + | Race | Unknown | + + + | Ethnic Group | Unknown | + + + Author + + + | Author | [facility] | + + + | Organization | [facility] | + + + | Address | [...] Providers + +------+ + | Care Manager Quality Name | Role | Phone | + +------+ + | Romy De La Paz MD | PCP | | + +------+ + Reason for Visit +--------+ + | Reason | Comments | +--------+ + | Other | New patient paperwork. | +--------+ + Encounter Details +--------+ + + + + | Date | Type | Department | Care Team | Description | +--------+ + + + + | 11/15/ | Documentati | [facility] | JimTherese, | Other (New patient | | 2019 | on Only | [facility] | Medical Student | paperwork.) | | | | [address] | | | | | | [place] | | | | | | [address] | | | | | | [phone] | | | +--------+ + + + [...] Description | +--------+---------+ + + + | 02/13/ | Office | Dolorology | Denys Sibley, | | | 2019 | Visit | | DO [address] | | | | | | [place] | | | | | | [address] | | | | | | | | +--------+---------+ + + + as of this encounter Visit Diagnoses Not on filein this encounter"
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
--- OUTSIDE RECORDS SUMMARY | ~2019-02-05 | XMS | Clinical Summary ---
Demographics + + + | Address | [address] | | | [place] [address] | + + + | Home Phone [...] Phone | + + +---------+ + | Kiarra Han | ECON | Unknown | | + + +---------+ + | Giuseppe Menchaca | ECON | Unknown | | + + +---------+ + | Nathalia Weinstein | ECON | Unknown | | + + +---------+ + Care Team Providers + +------+ + | Care Relationship Management Lead Name | Role | Phone | + [...] e | + + + +---------+------+------+-------+ | ibuprofen | Take 600 mg by mouth | | 0 | | | Activ | | (ADVIL,MOTRIN) 600 | every 6 hours as | | | | | e | | MG tablet | needed for Pain. | | | | | | + + + +---------+------+------+-------+ | | Take 1 tablet by | | 0 | | | Activ | | HYDROcodone-acetamin [...] e | + + + +---------+------+------+-------+ | fentaNYL | Place 1 patch onto | | 0 | | | Activ | | (DURAGESIC) [...] + +---+ + + | Overview: LOUISE [id number] Decision | + + + +---+ | [...] +--------+ + | No known problems | Phong | Destiny | | + + +--------+ [...] | Blood Pressure | 110/66 | 06/25/2018 0651 PDT | + + + + | [...] Cancer | | | | | Screening (Ages | 7 | | | | 50-74) | | | | + + [...] | | | | (Season Ended) | 9 | | | + + [...] +---------+--------+ | INDIVIDUAL ASSURANCE | INDIVI | [id number] | | | | Indemn | | [...] +--------+ +---------+--------+ | MEDICARE | MEDICA | [id number] | | [phone] | | Medica | | | RE | | 991-Pr | 5 | | re | | | PART A | | esent | | | | | | AND B | | | | | | + +--------+ +--------+ +---------+--------+ | MEDICARE | MEDICA | [id number] | | [phone] | | Medica | | | RE | | 991-Pr | 5 | | re | | | PART A | | esent | | | | | | AND B | | | | | | + +--------+ +--------+ +---------+--------+ | MEDICARE | MEDICA | [id number] | | [phone] | | Medica | | | RE | | 991-Pr | 5 | | re | | | PART A | | esent | | | | | | AND B | | | | | | + +--------+ +--------+ +---------+--------+ | INDIVIDUAL ASSURANCE | INDIVI | [id number] | | | | Indemn | | [...] +---------+--------+ | INDIVIDUAL ASSURANCE | INDIVI | [id number] | | | | Indemn | | [...] Person | Self | [birth year] | [address] | | mandeep Harshal | al/Fam | | 1945 | [phone] | [address] [place], | | | j[place] | | | 8 (Home) | [place] [id number] | + +--------+ +--------+ + + | Ibeth Rubiou | Person | Self | [birth year] | [address] | | mandeep [place] | al/Fam | | 1945 | [phone] | [address] [place], | | | [place] | | | 8 (Home) | [place] [address] | + +--------+ +--------+ + + | Tyrese Rubio | Person | Self | [birth year] | [address] | | [place] | al/Fam | | 1945 | [phone] | [address] [place], | | | [place] | | | 8 (Home) | [place] [id number] | + +--------+ +--------+ + + Advance Directives Patient has advance care planning documents on file. For more information, please contact:[facility] [place] [address]
--- OUTSIDE RECORDS SUMMARY | ~2019-02-05 | XMS | Clinical Summary ---
Demographics + + + | Address | [address] | | | [place] [address] | + + + | Home Phone | | + + + | Preferred Language | Unknown | + + + | Marital Status | | + + + | Mormonism Affiliation | 1013 | + + + | Race | Unknown | + + + | Ethnic Group | Unknown | + + + Author + + + | Author | [facility] | + + + | Organization | [facility] | + + + | Address | [...] Team Providers + +------+ + | Care Fiberglass Tube Molder Name | Role | Phone | [...] | | + + + +---------+------+------+-------+ | loratadine | Take 10 mg by [...] | + + + +---------+------+------+-------+ | ibuprofen (MOTRIN) | Take 800 mg [...] | NOSTRIL if needed | | | 11/19 | | e | | | for [...] e | + + + +---------+------+------+-------+ | Transparent | 1 patch by Does not | 30 each | 1 | 02/ | | Activ | | Dressings (TEGADERM | apply route daily as | | | 07/20 | | e | | FILM 4"X4-11/01") | needed for up to 30 | | | 19 | | | | MISCIndications: | days. | | | | | | | Intractable back | | | | | | | | pain | | | | | | | + + + +---------+------+------+-------+ | fentaNYL | Place 1 patch onto | 10 | 0 | 03/1 | 04/1 | Activ | | (DURAGESIC) 25 | the skin every third | patch | | /20 | 2/20 | e | | MCG/HRIndications: | day for 30 days. | | | 19 | 19 | | | Intractable back | | [...] tablet by | 120 | 0 | / | 04 | Activ | | HYDROcodone-acetamin | mouth every 6 (six) | tablet | | 01/17 | 12/20 | e | | ophen (NORCO) | hours as needed for | | | 19 | 19 | | | 7.5-325 MG per | [...] +---------+------+------+-------+ | | Apply to affected | 73869 g | 3 | / | 03/1 | Activ | | lidocaine-prilocaine | area 2 or 3 times a | | | 01/17 | 12/20 | e | | (EMLA) | day | | | 19 | 20 | | | creamIndications: | | | | | | | | Intractable back | | | | | | | | pain, Chronic pain | | | | | | | | disorder | | | | | | | + + + +---------+------+------+-------+ | lidocaine | Apply up to 3 | | | /0 | 12/29 | Disco | | (LIDODERM) 5 % | patches TOPICALLY at | | | 02/17 | 20 | ntinu | | | one time, for up to | | | 18 | 19 | ed | | | 12 hours within a | | | | | | | | 24-hour period | | | | | | + + + +---------+------+------+-------+ | fentaNYL | Place 1 patch onto | 10 | 0 | 12/01 | 12/29 | Disco | | (DURAGESIC) 25 | the skin every third | patch | | / | /20 | ntinu | | MCG/HRIndications: | day for 30 days. | | | 19 | 19 | ed | | Intractable back | | | [...] tablet by | 120 | 0 | 12/01 | 12/29 | Disco | | HYDROcodone-acetamin | mouth every 6 (six) | tablet | | 07/20 | 01/17 | ntinu | | ophen (NORCO) | hours as needed for | | | 19 | 19 | ed | | 7.5-325 MG per | Pain [...] + + +---------+------+------+-------+ | methocarbamol | Take 1 tablet by | 90 | 3 | 12/01 | 12/30 | Expir | | (ROBAXIN) 750 MG | mouth 3 (three) | tablet | | 07/20 | 11/19 | ed | | tabletIndications: | times daily for 30 | | | 19 | 19 | | | Intractable back | days. | | | | | [...] Noted Date | + + + | Chronic pain disorder | 11/21/2018 | + + + | Encounter for long-term use of opiate analgesic | 11/21/2018 | + + + | Degenerative lumbar spinal stenosis | 11/12/2018 | + + + | Closed compression fracture of L5 lumbar vertebra | 06/07/2018 | + + + + + | Overview: Added automatically from request for surgery [id number] | | Problem List Residential Green Building Designer Utility | + + + + + [...] | +--------+ + + + + | 01/23/ | Office | | Alfredo Casillas DO | Degenerative lumbar | | 2018 | Visit | | | spinal stenosis | | | | | | (Primary Dx); Lumbar | | | | | | pain; DDD | | | | | | (degenerative disc | | | | | | disease), lumbar; | | | | | | Lumbar spondylosis; | | | | | | Low back pain, | | | | | | unspecified back | | | | | | pain laterality, | | | | | | unspecified | | | | | | chronicity, with | | | | | | sciatica presence | | | | | | unspecified | +--------+ + + + + | 01/11/ | Telephone | | Denys Sibley, | Medication Problem | | 2018 | | | DO | (Needs Rx | | | | | | clarification on | | | | | | dose and | | | | | | instructions for: | | | | | | lidocaine-prilocaine | | | | | | ) | +--------+ + + + + | 01/10/ | Office | | Denys Sibley, | Intractable back | | 2018 | Visit | | DO | pain [...] | | | | vertebra, sequela | +--------+ + + + + | 12/19/ | Office | | Denys Sibley, | Intractable back | | 2018 | Visit | | DO | pain [...] presence | | | | | | unspecified | +--------+ + + + + | 11/22/ | Telephone | | Dneys Sibley, | Other (pharmacy | | 2018 | | | DO | change) | +--------+ + + + + | 11/21/ | Office | | Denys Sibley, | Intractable back | | 2019 | Visit | | DO | pain (Primary Dx); | | | | | | Closed compression | | | | | | fracture of fifth | | | | | | lumbar vertebra, | | | | | | sequela; Low back | | [...] + + | 11/15/ | Documentati | | Therese Fernandez, | Other (New patient | | 2019 | on Only | | Medical Student | paperwork.) | +--------+ + + + + | 11/13/ | Telephone | | Denys Sibley, | Establish Care | | 2018 | | | DO | (referral ) | +--------+ + + + + | 11/10/ | Telephone | | Maykel Hutchins MD | Referral (Outgoing ) | | 2019 | | | | | +--------+ + + + + | 11/09/ | Office | | Maykel Hutchins MD | Degenerative lumbar | | 2018 | Visit | | | spinal stenosis | | | | | | (Primary Dx) | +--------+ + + + + from [...] + + | Temperature | 36.6 C (97.9 F) | 09/11/2018 11:35 AM PST | + + + + | Respiratory Rate | 16 | 01/10/2019 4:09 PM PDT | + + + + | Oxygen Saturation | 98% | 01/10/2019 4:09 PM PDT | + + + + | Inhaled Oxygen | - | - | | Concentration | | | + + + + | Weight | 51.7 kg (114 lb) | 01/23/2019 3:17 PM PDT | + + + + | Height | 154.9 cm (5' 1") | 01/23/2019 3:17 PM PDT | + + + + | Body Mass Index | 21.54 | 01/23/2019 3:17 PM PDT | + + + + Plan of Treatment +--------+---------+ + + + | Date | Type | Specialty | Care Team | Description | +--------+---------+ + + + | 02/13/ | Office | | Laraiso, Denys G, | | | 2019 | Visit | | DO [address] | | | | | | [place] | | | | | | [address] | | | | | | | [...] | | 2 | + +------+-------+ +--------+--------+--------+ Results Not on [...] +------+-------+ + | MEDICARE | MEDICA | [id number] | | | [address] | | | RE | | | | [place] [address] | | | IP-OP | | | | | + +--------+ +------+-------+ + | COMMERCIAL OTHER | COMMER | [id number] | | | | | | CIAL [...] Self | [birth year] | Home: | [address] | | [place] | al/Fam | | 1945 | [phone] [address] [place], | | | jose | | | [phone] | [place] [address] | + +--------+ +--------+ + +
--- OUTSIDE RECORDS SUMMARY | ~2019-02-05 | XMS | Encounter Summary ---
Demographics + + + | Address | [address] | | | [place] [address] | + + + | Home Phone | | + + + | Preferred Language | Unknown | + + + | Marital Status | | + + + | Moravian Affiliation | 1013 | + + + | Race | Unknown | + + + | Ethnic Group | Unknown | + + + Author + + + | Author | [facility] | + + + | Organization | [facility] | + + + | Address | [...] Team Providers + +------+ + | Care Economic Forecaster Name | Role | Phone | + +------+ + | Romy De La Paz MD | PCP | | + +------+ + Reason for Visit + + + | Reason | Comments | + + + | Establish Care | referral | + + + Encounter Details +--------+ + + + + | Date | Type | Department | Care Team | Description | +--------+ + + + + | 11/13/ | Telephone | [facility] | Denys Sibley, | Establ[facility] | | 2019 | | [facility] | DO [address] | (referral ) | | | | [address] | [place], [place] | | | | | [place], [place] | [address] | | | | | [address] | | | | | | [phone] | | | +--------+ + + + [...] [place] | | | | | | [address] | | | | | | | | +--------+---------+ + + + as of this encounter Visit Diagnoses Not on filein this encounter"
--- OUTSIDE RECORDS SUMMARY | ~2019-02-05 | XMS | Encounter Summary ---
Demographics + + + | Address | [address] | | | [place] [address] | + + + | Home Phone | | + + + | Preferred Language | Unknown | + + + | Marital Status | | + + + | Bahai Affiliation | 1013 | + + + | Race | Unknown | + + + | Ethnic Group | Unknown | + + + Author + + + | Author | [facility] | + + + | Organization | [facility] | + + + | Address | [...] Team Providers + +------+ + | Care Extrusion Process Operator Name | Role | Phone | + +------+ + | Romy De La Paz MD | PCP | | + +------+ + Reason for Visit + + + | Reason | Comments | + + + | Medication Problem | Needs Rx clarification on dose and instructions for: | | | lidocaine-prilocaine | + + + Encounter Details +--------+ + + + + | Date | Type | Department | Care Team | Description | +--------+ + + + + | 01/11/ | Telephone | [facility] | Denys Sibley, | Medication Problem | | 2019 | | [facility] | DO [address] | (Needs Rx | | | | [address] | [place], [place] | clarification on | | | | [place] | [address] | dose and | | | | [address] | | instructions for: | | | | [phone] | | lidocaine-prilocaine | | | | | | ) | +--------+ + + + + Social [...] [place] | | | | | | [address] | | | | | | | | +--------+---------+ + + + as of this encounter Visit Diagnoses Not on filein this encounter"
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
--- OUTSIDE RECORDS SUMMARY | ~2019-02-05 | XMS | Encounter Summary ---
Demographics + + + | Address | [address] | | | [place] [address] | + + + | Home Phone [...] + + | Author | [facility] | + + + | Organization | [facility] | + + + | Address | [...] Providers + +------+ + | Care Chief Digital Media Officer Name | Role | Phone | [...] + + | 11/13/ | Telephone | [facility] | Denys Sibley, | Establ[facility] | | 2019 | | [facility] | DO [address] | (referral ) | | | | [address] | [place], [place] | | | | | [place], [place] | [address] | | | | | [address] | | | | | | [phone] | | | +--------+ + + + [...] [place] | | | | | | [address] | | | | | | | | +--------+---------+ + + + as of this encounter Visit Diagnoses Not on filein this encounter"
--- OUTSIDE RECORDS SUMMARY | ~2019-02-05 | XMS | Encounter Summary ---
Demographics + + + | Address | [address] | | | [place] [address] | + + + | Home Phone | | + + + | Preferred Language | Unknown | + + + | Marital Status | | + + + | Moravian Affiliation | 1013 | + + + | Race | Unknown | + + + | Ethnic Group | Unknown | + + + Author + + + | Author | [facility] | + + + | Organization | [facility] | + + + | Address | [...] Team Providers + +------+ + | Care Freelance Operator Name | Role | Phone | + +------+ + | Romy De La Paz MD | PCP | | + +------+ + Reason for Visit +--------+ + | Reason | Comments | +--------+ + | Other | pharmacy change | +--------+ + Encounter Details +--------+ + + + + | Date | Type | Department | Care Team | Description | +--------+ + + + + | 11/22/ | Telephone | [facility] | Denys Sibley, | Other (pharmacy | | 2019 | | [facility] | DO [address] | change) | | | | [address] | [place], [place] | | | | | [place], [place] | [address] | | | | | [address] | | | | | | [phone] | | | +--------+ + + + [...] [place] | | | | | | [address] | | | | | | | | +--------+---------+ + + + as of this encounter Visit Diagnoses Not on filein this encounter"
--- OUTSIDE RECORDS SUMMARY | ~2019-02-05 | XMS | Encounter Summary ---
Demographics + + + | Address | [address] | | | [place] [address] | + + + | Home Phone | | + + + | Preferred Language | Unknown | + + + | Marital Status | | + + + | Catholic Affiliation | 1013 | + + + | Race | Unknown | + + + | Ethnic Group | Unknown | + + + Author + + + | Author | [facility] | + + + | Organization | [facility] | + + + | Address | [...] Team Providers + +------+ + | Care Federal Mediation Commissioner Name | Role | Phone | + [...] + + | 01/11/ | Telephone | [facility] | Denys Sibley, | Medication Problem | | 2019 | | [facility] | DO [address] | (Needs Rx | | | | [address] | [place], [place] | clarification on | | | | [place] | [address] | dose and | | | | [address] | | instructions for: | | | | [phone] | | lidocaine-prilocaine | | | | [...] [place] | | | | | | [address] | | | | | | | | +--------+---------+ + + + as of this encounter Visit Diagnoses Not on filein this encounter"
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
--- OUTSIDE RECORDS SUMMARY | ~2019-02-05 | XMS | Clinical Summary ---
Demographics + + + | Address | [address] | | | [place] [address] | + + + | Home Phone [...] Team Providers + +------+ + | Care Recruiting Assistant Name | Role | Phone | + +------+ + | Oxana Nye | PP | Unavailable | + +------+ + Source Comments RADHA is fully live on both [facility] and [facility] Allergies + + + + [...] + + + | Influenza (Flu) | | | | | vaccination: MyChart | 8 | | | | opt out (#1) [...] | Medica | [phone] | [address] | | | RE A & | | re | [phone] | [place] [address] | | | B | | | | | + +--------+ +--------+ + + | CITIZEN [place] | AARP | xxxxxxxxxx | Indemn | +- | [address] | | RETIRED PEOPLE | | | ity | [phone] | [place] [address] | + +--------+ +--------+ + + + +--------+ +--------+ + + | Guarantor Name | Accoun | Relation to | Date | Phone | Billing Address | | | t Type | Patient | of | | | | | | | | | | + +--------+ +--------+ + + | YU HARMON | Person | Self [birth year] Home: | [address] | | [place] | al/Benji | | 1945 | [phone] | [address] [place] | | | jose | | | [phone] | [address] | + +--------+ +--------+ + +
--- OUTSIDE RECORDS SUMMARY | ~2019-02-05 | XMS | Encounter Summary ---
Demographics + + + | Address | [address] | | | [place] [address] | + + + | Home Phone | | + + + | Preferred Language | Unknown | + + + | Marital Status | | + + + | Hoahaoism Affiliation | 1013 | + + + | Race | Unknown | + + + | Ethnic Group | Unknown | + + + Author + + + | Author | [facility] | + + + | Organization | [facility] | + + + | Address | [...] Providers + +------+ + | Care Project Management Professor Name | Role | Phone | + +------+ + | Romy De La Paz MD | PCP | | + +------+ + Reason for Visit + + + | Reason | Comments | + + + | Referral | Outgoing | + + + Encounter Details +--------+ + + + + | Date | Type | Department | Care Team | Description | +--------+ + + + + | 11/10/ | Telephone | [facility] | Maykel Hutchins MD | Referral (Outgoing ) | | 2019 | | [facility] | [address] | | | | | [address] | [place] [address] | | | | | [place], [place] | [phone] | | | | | [address] | | | | | | [phone] | | | +--------+ + + + [...] | 02/13/ | Office | Dolorology | Laraiso, Denys G, | | | 2019 | Visit | | DO [address] | | | | | | [place] | | | | | | [id number] | | | | | | | | +--------+---------+ + + + as of this encounter Visit Diagnoses Not on filein this encounter"
--- OUTSIDE RECORDS SUMMARY | ~2019-02-05 | XMS | Clinical Summary ---
Demographics + + + | Address | [address] | | | [place] [address] | + + + | Home Phone | | + + + | Preferred Language | Unknown | + + + | Marital Status | | + + + | Jain Affiliation | 1013 | + + + | Race | Unknown | + + + | Ethnic Group | Unknown | + + + Author + + + | Author | [facility] | + + + | Organization | [facility] | + + + | Address | [...] Team Providers + +------+ + | Care Garment Parts Cutter Machine Name | Role | Phone | [...] +---------+------+------+-------+ | | Apply to affected | [id number] g | 3 | / | 03/1 [...] Overview: Added automatically from request for surgery [id number] | | Problem List Magnetic Testing Technician Utility | + + + + + [...] + | 11/22/ | Telephone | | Denys Sibley, | Other (pharmacy | | 2018 [...] [place] | | | | | | [address] | | | | | | | [...] +------+-------+ + | MEDICARE | MEDICA | [id number] | | | [address] | | | RE | | | | [place] [address] | | | IP-OP | | | | | + +--------+ +------+-------+ + | COMMERCIAL OTHER | COMMER | [id number] | | | | | | CIAL [...] [place] | | | [address] | [place] [address] | + +--------+ +--------+ + +
--- OUTSIDE RECORDS SUMMARY | ~2019-02-05 | XMS | Encounter Summary ---
Demographics + + + | Address | [address] | | | [place] [address] | + + + | Home Phone | | + + + | Preferred Language | Unknown | + + + | Marital Status | | + + + | Presybeterian Affiliation | 1013 | + + + | Race | Unknown | + + + | Ethnic Group | Unknown | + + + Author + + + | Author | [facility] | + + + | Organization | [facility] | + + + | Address | [...] Providers + +------+ + | Care Cloud Infrastructure Architect Name | Role | Phone | [...] + + | 11/15/ | Documentati | [facility] | JimTherese, | Other (New patient | | 2019 | on Only | [facility] | Medical Student | paperwork.) | | | | [address] | | | | | | [place] | | | | | | [address] | | | | | | [phone] | | | +--------+ + + + [...] [place] | | | | | | [address] | | | | | | | | +--------+---------+ + + + as of this encounter Visit Diagnoses Not on filein this encounter"
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
--- OUTSIDE RECORDS SUMMARY | ~2019-02-05 | XMS | Clinical Summary ---
Demographics + + + | Address | [address] | | | [place] [address] | + + + | Home Phone [...] Team Providers + +------+ + | Care Dip Brazier Name | Role | Phone | + [...] + +---+ + + | Overview: LOUISE [id number] Decision | + + + +---+ | [...] + + | Brother | | | [place] | | | | (Age | | [...] +---------+--------+ | INDIVIDUAL ASSURANCE | INDIVI | [id number] | | | | Indemn | | [...] +--------+ +---------+--------+ | MEDICARE | MEDICA | [id number] | | [phone] | | Medica | | | RE | | 991-Pr | 5 | | re | | | PART A | | esent | | | | | | AND B | | | | | | + +--------+ +--------+ +---------+--------+ | MEDICARE | MEDICA | [id number] | | [phone] | | Medica | | | RE | | 991-Pr | 5 | | re | | | PART A | | esent | | | | | | AND B | | | | | | + +--------+ +--------+ +---------+--------+ | MEDICARE | MEDICA | [id number] | | [phone] | | Medica | | | RE | | 991-Pr | 5 | | re | | | PART A | | esent | | | | | | AND B | | | | | | + +--------+ +--------+ +---------+--------+ | INDIVIDUAL ASSURANCE | INDIVI | [id number] | | | | Indemn | | [...] +---------+--------+ | INDIVIDUAL ASSURANCE | INDIVI | [id number] | | | | Indemn | | [...] | | | 8 (Home) | [place] [address] | + +--------+ +--------+ + + | Ibeth Rubiou | Person | Self | [birth year] | [address] | | mandeep Hasrhal | al/Fam | | 1945 | [phone] | [address] [place], | | | jose | | | 8 (Home) | [place] [address] | + +--------+ +--------+ + + | Tyrese Rubio | Person | Self | [birth year] | [address] | | mandeep Harshal | al/Fam | | 1945 | [phone] | [address] [place], | | | jose | | | 8 (Home) | [place] [address] | + +--------+ +--------+ + + Advance Directives Patient has advance care planning documents on file. For more information, please contact:[facility] [address]
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
--- OUTSIDE RECORDS SUMMARY | ~2019-02-05 | XMS | Encounter Summary ---
Demographics + + + | Address | [address] | | | [place] [address] | + + + | Home Phone | | + + + | Preferred Language | Unknown | + + + | Marital Status | | + + + | Scientology Affiliation | 1013 | + + + | Race | Unknown | + + + | Ethnic Group | Unknown | + + + Author + + + | Author | [facility] | + + + | Organization | [facility] | + + + | Address | [...] Providers + +------+ + | Care Emt I/99 Name | Role | Phone | + [...] | [address] | [place], [place] | | | | | [place], [place] | [address] | | | | | [address] | | | | | | [phone] | | | +--------+ + + + [...] [place] | | | | | | [address] | | | | | | | | +--------+---------+ + + + as of this encounter Visit Diagnoses Not on filein this encounter"
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
--- OUTSIDE RECORDS SUMMARY | ~2019-02-05 | XMS | Clinical Summary ---
Demographics + + + | Address | [address] | | | [place] [address] | + + + | Home Phone [...] Providers + +------+ + | Care Rubber Mold Maker Name | Role | Phone | + +------+ + | Oxana Nye | PP | Unavailable | + +------+ + Source Comments RADHA is fully live on both [facility] and [facility] In[facility] Allergies + + + + [...] | Medica | [phone]- | [address] | | | RE A & | | re | [phone] | [place] [address] | | | B | | | | | + +--------+ +--------+ + + | THAI ASSN | AARP | [phone] | Indemn | +- | [address] | | RETIRED PEOPLE | | | ity | [address] | [place] [address] | + +--------+ +--------+ + + + +--------+ +--------+ + + | Guarantor Name | Accoun | Relation to | Date | Phone | Billing Address | | | t Type | Patient | of | | | | | | | | | | + +--------+ +--------+ + + | YU HARMON | Person | Self [birth year] | Home: | [address] | | [place] | al/Benji | | 1945 | [phone] | [address] [place] | | | jose | | | [phone] | [address] | + +--------+ +--------+ + +
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
--- OUTSIDE RECORDS SUMMARY | ~2019-02-05 | XMS | Encounter Summary ---
Demographics + + + | Address | [address] | | | [place] [address] | + + + | Home Phone [...] + + + | Author | [facility] | + + + | Organization | [facility] | + + + | Address | [...] Team Providers + +------+ + | Care Radio Electrician Name | Role | Phone | [...] + + | 11/10/ | Telephone | [facility] | Maykel Hutchins MD | Referral (Outgoing ) | | 2019 | | [facility] | [address] | | | | | [address] | [place] [address] | | | | | [place], [place] | [phone] | | | | | [address] | | | | | | [phone] | | | +--------+ + + + [...] 02/13/ | Office | Dolorology | Laraiso, Deyns G, | | | 2019 | Visit | | DO [address] | | | | | | [place] | | | | | | [id number] | | | | | | | | +--------+---------+ + + + as of this encounter Visit Diagnoses Not on filein this encounter"
[~2019-02-05 05:23] MED LIST changes: +MYRBETRIQ25 MG PO; +VENLAFAXINE H37.5 M1 PO
--- OUTSIDE RECORDS SUMMARY | 2019-02-05 05:26 | XMS ---
PreManage Notification: RONALD FLORIAN Security Gate Keeper Events No recent Security Events currently on file CRITERIA MET - Group Notification - [facility] - Has Care Guidelines - PDMP CARE PROVIDERS EVELIO AIKEN Physician 05/23/2018-Current PHONE: Unknown [facility] Current PHONE: [phone] Alan Cesar Current MD PHONE: Unknown Mateus has no Care Guidelines for this patient. Care History Medical/Surgical 06/28/2018 [facility] HISTORY:\T\nbsp; DM/ COPD, RESTLESS LEGS/ DEPRESSION/ TARDIVE DYSKINESIA/ CHRONIC PAIN/ MULTIPLE OVERDOSE ATTEMPTS/ SCOLIOSIS/ DEGEN DISC DISEASE/ BONE SPUR 03/24/2018 [facility] - PATIENT HAS A PAIN SPECIALIST DR CRUZ IN [place], [place] CONTACT NUMBER . - CHW is working with patient and attending all [facility] apts with patient. - CHW is attending PCP apts with patient. Care Recommendation: This patient has had 5 or more Emergency Department visits in the last 12 months.\T\nbsp; Patient requires education on the scope and purpose of the ED as an acute care provider not a Primary Care Provider and should not be utilized for chronic conditions.\T\nbsp; If patient returns to ED please contact Community Health WorkerVirginie at [phone]. These are guidelines and the provider should exercise clinical judgment when providing care. E.D. VISIT COUNT (12 MO.) 1 Jesse Curry [facility]. 11 [facility]. TOTAL 12 NOTE: Visits indicate total known visits. ED/UCC VISIT TRACKING (12 MO.) 02/05/2019 05:23 LIZZETTE Adairony Domonique Acharya [place] TYPE: Emergency COMPLAINT: - ABD PAIN 10/14/2018 12:13 LIZZETTE Beavers [place] TYPE: Emergency COMPLAINT: - FALL/RIB PAIN DIAGNOSES: - Chronic obstructive pulmonary disease, unspecified - Type 2 diabetes mellitus without complications - Striking against or struck by other objects, initial encounter - Other chronic pain - Bipolar disorder, unspecified - Other nursing home (current) 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 - Contusion of left front wall of thorax, initial encounter - Allergy status to other drugs, medicaments and biological substances status - Low back pain 07/13/2018 14:27 LIZZETTE Sanchez ZhouJacquelyn Acharya [place] TYPE: Emergency COMPLAINT: - MEDICAL CLEARANCE DIAGNOSES: - Unspecified superficial injury of unspecified part of neck, initial encounter - Major depressive disorder, single episode, unspecified - Unspecified superficial injury of right hand, initial encounter - Allergy status to other drugs, medicaments and biological substances status - Type 2 diabetes mellitus without complications - Unspecified injury of right wrist, hand and finger(s), initial encounter - Other communications and signals supervisor (current) 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 - Intentional self-harm by knife, initial encounter 07/12/2018 21:10 LIZZETTE Beavers [place] TYPE: Emergency COMPLAINT: - MEDICAL CLEARANCE DIAGNOSES: - Other chronic pain - Other communications and signals supervisor (current) 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 - Encounter for other general examination - detention (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 of aspirin - Contact with other sharp object(s), not elsewhere classified, initial encounter - timber surveyor (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 of opiate analgesic - detention (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 of systemic steroids - Dorsalgia, unspecified - Laceration without foreign body of unspecified part of neck, initial encounter - Type 2 diabetes mellitus without complications - Unspecified superficial injury of unspecified part of neck, subsequent encounter - Contact with other sharp object(s), not elsewhere classified, subsequent encounter - Major depressive disorder, single episode, unspecified - Chronic obstructive pulmonary disease, unspecified - Unspecified superficial injury of unspecified part of neck, initial encounter 07/05/2018 18:11 LIZZETTE Beavers [place] TYPE: Emergency COMPLAINT: - CHEST PAIN DIAGNOSES: - Other chest pain - Allergy status to other drugs, medicaments and biological substances status - Other chest pain - Type 2 diabetes mellitus without complications - Major depressive disorder, single episode, unspecified - Other nursing home (current) 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 - Chronic obstructive pulmonary disease, unspecified - Chest pain, unspecified - detention (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 of aspirin - detention (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 of opiate analgesic 06/23/2018 19:50 Jesse Youssef DAMION JESSE [place] TYPE: Emergency DIAGNOSES: - Borderline personality disorder - Mental Eval - Suicidal ideations - Suicidal 06/15/2018 20:41 LIZZETTE Beavers [place] TYPE: Emergency COMPLAINT: - BACKPAIN/FALL DIAGNOSES: - Type 2 diabetes mellitus without complications - Other specified postprocedural states - timber surveyor (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 of aspirin - Low back pain - Unspecified fall, initial encounter - Other communications and signals supervisor (current) 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 06/04/2018 05:40 LIZZETTE Beavers [place] TYPE: Emergency COMPLAINT: - BACK/NECK PAIN- NON INJURY DIAGNOSES: - timber surveyor (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 of aspirin - Allergy status to other drugs, medicaments and biological substances status - Other nursing home (current) 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 - Other chronic pain [...] of lower back, initial encounter - Other nursing home (current) 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 - detention (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 of aspirin - Type 2 diabetes mellitus without complications 02/24/2018 15:35 LIZZETTE Beavers [place] TYPE: Emergency COMPLAINT: - STROKE 02/15/2018 23:18 LIZZETTE Beavers [place] TYPE: Emergency COMPLAINT: - GLF,UNKNOWN INJURIES DIAGNOSES: - Fall on same level, unspecified, initial encounter - Chronic obstructive pulmonary disease, unspecified - Type 2 diabetes mellitus without complications - Major depressive disorder, single episode, unspecified - Other nursing home (current) 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 - Allergy status to [...] depressants, intentional self-harm, initial encounter - Other communications and signals supervisor (current) 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 - Type 2 diabetes mellitus without complications - Restless legs syndrome - timber surveyor (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 of non-steroidal anti-inflammatories (NSAID) - Encounter for other general examination INPATIENT VISIT TRACKING (12 MO.) 02/26/2018 10:52 LIZZETTE Beavers [place] TYPE: Medical Surgical COMPLAINT: - STROKE SX'S DIAGNOSES: - Major depressive disorder, single episode, unspecified - Other nonspecific abnormal finding of lung field - timber surveyor (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 of non-steroidal anti-inflammatories (NSAID) - Cerebral aneurysm, nonruptured - Restless legs syndrome - Other communications and signals supervisor (current) 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 - timber surveyor (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 of aspirin - Adhesive capsulitis of right shoulder - Aphasia - Allergy status to other drugs, medicaments and biological substances status - Repeated falls - Chronic obstructive pulmonary disease, unspecified - Somatoform disorder, unspecified - Cerebral infarction, unspecified - Hypothyroidism, unspecified - Pain in right hip - Conversion disorder with motor symptom or deficit - Suicidal ideations [email or web address]
[2019-02-05] MEDS ORDERED: PYRIDIUM200 MG PO (06:22)
[2019-02-05] MEDS ORDERED: KEFLEX500 MG PO (06:22)
== END 2019-02-05 06:34 | disposition home or self-care (01) ==
LOC: ED 05:23
DX: N39.0 Urinary tract infection, site not specified (principal); E11.9 Type 2 diabetes mellitus without complications; J44.9 Chronic obstructive pulmonary disease, unspecified; F31.9 Bipolar disorder, unspecified; Z88.8 Allergy status to other drugs, medicaments and biological substances; Z79.899 Other long term (current) 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
CPT/HCPCS: 81001; 87088; 99283

== ENCOUNTER 2019-08-07 22:08 | Emergency (ER) | payer MEDICARE, OTHER ==
[~2019-08-07] VITALS: Ht 154.9 cm; Wt 51.7 kg
--- OUTSIDE RECORDS SUMMARY | ~2019-08-07 | XMS | Encounter Summary ---
Demographics + + + | Address | [address] | | | [place] [address] | + + + | Home Phone | | + + + | Preferred Language | Unknown | + + + | Marital Status | Single | + + + | Amish Affiliation | NON | + + + | Race | White | + + + | Ethnic Group | Not or | + + + Author + + + | Author | [facility] | + + + | Organization | [facility] | + + + | Address | Unknown | + + + | Phone | Unavailable | + + + Support + + +---------+ + | Name | Relationship | Address | Phone | + + +---------+ + | Royce Menchaca | ECON | Unknown | | + + +---------+ + Care Team Providers + +------+ + | Care Memorial Marker Designer Name | Role | Phone | + +------+ + | Miquel Calhoun MD | PCP | | + +------+ + Encounter Details +--------+ + + + + | Date | Type | Department | Care Team | Description | +--------+ + + + + | 10/18/ | [facility]phone | [facility] | Khushbu Cortez, | | | 2012 | | [facility] | [place], [place] | | | | | [address] | [address] | | | | | [address] | | | | | | [place] | | | | | | [place], [place] | | | | | | [address] | | | | | | [phone] | | | +--------+ + + + [...]
--- OUTSIDE RECORDS SUMMARY | ~2019-08-07 | XMS | Encounter Summary ---
Demographics + + + | Address | [address] | | | [place] [address] | + + + | Home Phone [...] Organization | [facility] | | | and [place] | + [...] Team Providers + +------+ + | Care Gut Cleaner Name | Role | Phone | + [...] | +--------+ + + + + | 08/06/ | Telephone | [facility] | Maykel Hutchins MD | Medication Question | | 2019 | | [facility] | [address] | | | | | ORTHOPEDIC SPINE | [place] | | | | | [address] [place] | [place] [address] | | | | | [place] | [phone] | | | | | [address] | | | | | | [phone] | | | +--------+ + + + [...] | | | | | | [address] | | | | | | [place] [address] | | | | | | [phone] | | | | | | | | +--------+---------+ + + + | 08/16/ | Office | Pain Medicine | Denys Sibley, | | | 2018 | Visit | | [address] | | | | | | [place] | | | | | | [address] | | | | | | | | +--------+---------+ + + + documented as of this encounter Visit Diagnoses Not on filedocumented in this encounter"
--- OUTSIDE RECORDS SUMMARY | ~2019-08-07 | XMS | Encounter Summary ---
Demographics + + + | Address | [address] | | | [place] [address] | + + + | Home Phone | | + + + | Preferred Language | Unknown | + + + | Marital Status | | + + + | Anabaptism Affiliation | 1013 | + + + | Race | Unknown | + + + | Ethnic Group | Unknown | + + + Author + + + | Author | [facility] | | | and Priteshana | + + + | Organization | [facility] | | [...] Team Providers + +------+ + | Care Restaurant Area Manager Name | Role | Phone | [...] | | | | | | | CO SURG | | | | | | | IMPLNT | | | | | | | NEUROELECT,E | | | | | | | PIDURAL CO | | | | | | | IMPLANT | | | | | | | NEUROSTIM/RE | | | | | | | CEIVER CO | | | | | | [...] + + + + | 08/03/ | Anesthesia | [facility] | Yojana Arellano CRNA | | | 2019 | Event [facility] | [address] | | | | | OPER[address] | [place] [address] | | | | | [address] | [phone] | | | | | [place], [place] | | | | | | [address] | | | | | | [phone] | | | +--------+ + + + + Anesthesia Record + + + + + | Procedure Name | Responsible | Anesthesia Start | Anesthesia Stop Time | | | Anesthesiologist | Time | | + + + + + | LAMINOTOMY THORACIC | Yojana Arellano CRNA | 08/03/19926 | 08/03/19 1053 | | / LUMBAR W/ | | | | | PLACEMENT SPINAL | | | | | CORD STIMULATOR (N/A | | | | | Spine Thoracic) | | | | + + + + + +----+---+ + + | Da | T | Event | Comment | | te | i | | | | | m | | | | | e | | | +----+---+ + + | 10 | 0 | | | | /0 | 9 | | | | 4/ | 2 | | | | 20 | 3 | | | | 19 | | | | +----+---+ + + | | 0 | An Start | Reassessment prior to anesthesia induction/procedure. | | | 9 | | | | | 2 | | | | | 7 | | | +----+---+ + + | | 0 | An | | | | 9 | Induction | | | | 3 | | | | | 1 | | | +----+---+ + + | | 0 | An | | | | 9 | Intubation | | | | 3 | | | | | 3 | | | +----+---+ + + | | 0 | Antibiotic | | | | 9 | Given | | | | 4 | | | | | 2 | | | +----+---+ + + | | 0 | Anesthesia | | | | 9 | Ready | | | | 4 | | | | | 6 | | | +----+---+ + + | | 0 | [place] | | | | 9 | 43-degrees | | | | 4 | | | | | 6 | | | +----+---+ + + | | 0 | First | | | | 9 | Inc/Proc St | | | | 5 | | | | | 6 | | | +----+---+ + + | | 1 | Quick Note | Blood glucose rechecked at this time 139 | | | 0 | | | | | 0 | | | | | 7 | | | +----+---+ + + | | 1 | Extubation/ | | | | 0 | Airway LDA | | | | 5 | Removal | | | | 3 | | | +----+---+ + + | | 1 | an stop | | | | 0 | data | | | | 5 | | | | | 3 | | | +----+---+ + + | | 1 | An Stop | Patient handed off to recovery nurse. | | | 5 | | | | | 3 | | | +----+---+ + + +------+ | Meds | +------+ + + + | Name | Total | + + + | fentaNYL | 200 mcg | + + + | lidocaine 2% | 100 mg | + + + | propofol | 100 mg | + + + | rocuronium | 30 mg | + + + | succinylcholine | 100 mg | + + + | dexamethasone | 4 mg | + + + | ondansetron | 4 mg | + + + | neostigmine | 3 mg | + + + | glycopyrrolate | 0.4 mg | + + + | ceFAZolin in dextrose (ANCEF) | 2 g | | IVPB 2 g | | + + + | dextrose 50% injection 12.5 g | 12.5 g | + + + | phenylephrine | 1,550 mcg | + + + | balanced electrolytes in water | 800 mL | | (PLASMALYTE-148/NORMOSOL-R) | | | infusion | | + + + + + | Name | + + | N2O Flow Rate (L/Min) | + + | O2 Flow Rate (L/Min) | + + | Insp O2 | + + | Exp N2O | + + | Exp SEV | + + | Air Flow Rate (L/Min) | + + + + | No blood administrations on file. | + + +--------+ + + + | Type | Details | Placement | Removal | +--------+ + + + | Wound | 08/03/19; 1029; Incision; back | 08/03/19 1029 by | | | | | Gayathri Olguin RN | | +--------+ + + + | Periph | 08/03/19; 0804; Left; | 08/03/19 0804 by | 08/04/19 1506 by | | eral | Antecubital; [id number] | Mikayla Marcial, | Gamal Whitney, | | IV | catheter system; 20 gauge; 3; | RN | RN | | | removed per policy/procedure; | | | | | 08/04/19; 1506 | | | +--------+ + + + | Airway | Placement Date: 08/03/19; | 08/03/19932 by | 08/03/19 1053 by | | | Placement Time: 932 (created via | Yojana Arellano CRNA | Yojana Arellano CRNA | | | procedure documentation); Mask | | | | | Ventilation: EZ; Airway Grade: 1; | | | | | Successful Technique: Mac; | | | | | Laryngoscope Blade Size: 3; | | | | | Attempts: 1; Airway Type: | | | | | endotracheal; Size: 7.5; Airway | | | | | Tube Secured At: 20; Trauma: | | | | | none; Other Equipment: stylette; | | | | | Placement Check: exhaled CO2 | | | | | detection device, bilateral chest | | | | | rise, breath sounds equal | | | | | bilaterally; Removal Date: | | | | | 08/03/19; Removal Time: 1052 | | | +--------+ + + + documented in this encounter Social History + +-------+ [...] | | | | | | [place] [address] | | | | | | [phone] | | | | | | | | +--------+---------+ + + + | 08/16/ | Office | Pain Medicine | Denys Sibley, | | | 2018 | Visit | | [address] | | | | | | [place] | | | | | | [address] | | | | | | | | +--------+---------+ + + + documented as of this encounter Results Airway (08/03/2019 9:52 PDT) + + + | Narrative | Performed At | + + + | Yojana Arellano CRNA 08/03/2019 9:53 Anesthesia Airway | | | Placement 08/03/2019 9:33 Preprocedure check: patient identified, | | | oxygen, airway equipment checked, airway assessed and patient | | | reassessment prior to induction Rapid Sequence Induction: no Mask | | | ventilation: easy External maneuver: ramp position Successful | | | technique: Mac Laryngoscope blade size: 3 Airway grade: 1 (Full | | | view of glottis) Other equipment: stylette Attempts: 1 Airway type: | | | endotracheal Size: 7.5 Cuffed: cuffed Route, reference point: | | | right side of mouth Tube depth: 20 cm LDA Airway tube secured with: | | | pink tape. Trauma: none Tube placement verification: bilateral chest | | | rise, equal bilateral breath sounds and carbon dioxide detection | | | Performing provider: Yojana Arellano CRNA Please see | | | intraoperative grid for any additional medication documentation. | | + + + + + | Procedure Note | + + | Yojana Arellano CRNA - 08/03/2019 0952 PDT Anesthesia Airway Zqirjvrop96/4/2019 | | 9:33Preprocedure check: patient identified, oxygen, airway equipment checked, airway | | assessed and patient reassessment prior to inductionRapid Sequence Induction: noMask | | ventilation: easyExternal maneuver: ramp positionSuccessful technique: MacLaryngoscope | | blade size: 3 Airway grade: 1 (Full view of glottis)Other equipment: styletteAttempts: | | 1Airway type: endotrachealSize: 7.5Cuffed: cuffedRoute, reference point: right side of | | mouthTube depth: 20 cmLDA Airway tube secured with: pink tape.Trauma: noneTube placement | | verification: bilateral chest rise, equal bilateral breath sounds and carbon dioxide | | detectionPerforming provider: Yojana Arellano CRNAPlease see intraoperative grid for any | | additional medication documentation. | |Other equipment: stylette | |Attempts: 1 | |Airway type: endotracheal | |Size: 7.5 | |Cuffed: cuffed | |Route, reference point: right side of mouth | |Tube depth: 20 cm | |LDA Airway tube secured with: pink tape. | |Trauma: none | |Tube placement verification: bilateral chest rise, equal bilateral breath sounds and carbon dioxide detection | |Performing provider: Yojana Arellano CRNA | | | | | | | |Please see intraoperative grid for any additional medication documentation. | + + documented in this encounter Visit Diagnoses Not on filedocumented in this encounter Administered Medications + +---------+ [...] | infusion at 50 mL/hr, | | PDT | | | | | Intravenous, CONTINUOUS, Starting | | | | | | | 08/03/19 at 0745, Pre-op | | | | | | + +---------+ +------+------+------+ +---------+ +---+ +---+ | New Bag | 08/03/20 | | 50 mL/hr | | | | 19 7:53 | | | | | | PDT | | | | +---------+ +---+ +---+ +---+---+ | | | +---+---+ + +-------+ +-----+---+---+ | ceFAZolin in dextrose (ANCEF) | Given | 08/03/20 | 2 g | | | | IVPB 2 g 2 g, Intravenous, | | 19 9:45 | | | | | Administer over 30 Minutes, Prior | | PDT | | | | | to Incision, Starting Fri | | | | | | | 08/03/19 at 0730, For 1 dose, Keep | | | | | | | in refrigerator., Pre-op, | | | | | | | Indications: Surgical Prophylaxis | | | | | | + +-------+ +-----+---+---+ +---+---+ | | | +---+---+ + +-------+ +------+---+---+ | dexamethasone (DECADRON) 4 | Given | 08/03/20 | 4 mg | | | | mg/mL injection Intravenous, | | 19 9:45 | | | | | PRN, Starting 08/03/19 at | | PDT | | | | | 0945, Anesthesia Intra-op | | | | | | + +-------+ +------+---+---+ +---+---+ | | | +---+---+ + +-------+ +--------+---+---+ | dextrose 50% injection 12.5 g | Given | 08/03/20 | 12.5 g | | | | 12.5 g, Intravenous, ONCE, Fri | | 19 9:30 | | | | | 08/03/19 at 0945, For 1 dose, | | PDT | | | | | Pre-op | | | | | | + +-------+ +--------+---+---+ +---+---+ | | | +---+---+ + +-------+ +--------+---+---+ | fentaNYL (PF) injection | Given | 08/03/20 | 50 mcg | | | | Intravenous, PRN, Starting Fri | | 19 10:57 | | | | | 08/03/19 at 0931, Anesthesia | | PDT | | | | | Intra-op | | | | | | + +-------+ +--------+---+---+ +-------+ +--------+---+---+ | Given | 08/03/20 | 50 mcg | | | | | 19 10:49 | | | | | | PDT | | | | +-------+ +--------+---+---+ | Given | 08/03/20 | 50 mcg | | | | | 19 9:55 | | | | | | PDT | | | | +-------+ +--------+---+---+ +---+---+ | | | +---+---+ + +-------+ +--------+---+---+ | glycopyrrolate (ROBROSASUL) | Given | 08/03/20 | 0.4 mg | | | | injection Intravenous, PRN, | | 19 10:31 | | | | | Starting 08/03/19 at 1031, | | PDT | | | | | Anesthesia Intra-op | | | | | | + +-------+ +--------+---+---+ +---+---+ | | | +---+---+ + +-------+ +--------+---+---+ | lidocaine (PF) 2% injection | Given | 08/03/20 | 100 mg | | | | Intravenous, PRN, Starting Fri | | 19 9:31 | | | | | 08/03/19 at 0931, Anesthesia | | PDT | | | | | Intra-op | | | | | | + +-------+ +--------+---+---+ +---+---+ | | | +---+---+ + +-------+ +------+---+---+ | neostigmine (BLOXIVERZ) 1 mg/mL | Given | 08/03/20 | 3 mg | | | | injection Intravenous, PRN, | | 19 10:31 | | | | | Starting 08/03/19 at 1031, | | PDT | | | | | Anesthesia Intra-op | | | | | | + +-------+ +------+---+---+ +---+---+ | | | +---+---+ + +-------+ +------+---+---+ | ondansetron (ZOFRAN) injection | Given | 08/03/20 | 4 mg | | | | Intravenous, PRN, Starting Fri | | 19 9:45 | | | | | 08/03/19 at 0945, Anesthesia | | PDT | | | | | Intra-op | | | | | | + +-------+ +------+---+---+ +---+---+ | | | +---+---+ + +---------+ +---------+-------+---+ | phenylephrine (ALBAN-SYNEPHRINE, | New Bag | 08/03/20 | 25 | 0.2 | | | VAZCULEP) 10 mg/mL injection | | 19 9:40 | mcg/min | mL/hr | | | Intravenous, CONTINUOUS PRN, | | PDT | | | | | Starting 08/03/19 at 0940, | | | | | | | Anesthesia Intra-op | | | | | | + +---------+ +---------+-------+---+ +---+---+ | | | +---+---+ + +-------+ +--------+---+---+ | propofol (DIPRIVAN) injection | Given | 08/03/20 | 100 mg | | | | Intravenous, PRN, Starting Fri | | 19 9:31 | | | | | 08/03/19 at 0931, Anesthesia | | PDT | | | | | Intra-op | | | | | | + +-------+ +--------+---+---+ +---+---+ | | | +---+---+ + +-------+ +-------+---+---+ | rocuronium (ZEMURON) injection | Given | 08/03/20 | 20 mg | | | | Intravenous, PRN, Starting Fri | | 19 9:40 | | | | | 08/03/19 at 0931, Anesthesia | | PDT | | | | | Intra-op | | | | | | + +-------+ +-------+---+---+ +-------+ +-------+---+---+ | Given | 08/03/20 | 10 mg | | | | | 19 9:31 | | | | | | PDT | | | | +-------+ +-------+---+---+ +---+---+ | | | +---+---+ + +-------+ +--------+---+---+ | succinylcholine (ANECTINE) | Given | 08/03/20 | 100 mg | | | | injection Intravenous, PRN, | | 19 9:31 | | | | | Starting 08/03/19 at 0931, | | PDT | | | | | Anesthesia Intra-op | | | | | | + +-------+ +--------+---+---+ +---+---+ | | | +---+---+ documented in this encounter"
--- OUTSIDE RECORDS SUMMARY | ~2019-08-07 | XMS | Encounter Summary ---
Demographics + + + | Address | [address] | | | [place] [address] | + + + | Home Phone [...] Author | [facility] | + + + | Organization | [facility] | + + + | Address | Unknown | + + + | Phone | Unavailable | + + + Support + + +---------+ + | Name | Relationship | Address | Phone | + + +---------+ + | Royce Menchaca | ECON | Unknown | | + + +---------+ + Care Team Providers + +------+ + | Care Account Review Specialist Name | Role | Phone | + +------+ + | Miquel Calhoun MD | PCP | | + +------+ + Encounter Details +--------+ + + + + | Date | Type | Department | Care Team | Description | +--------+ + + + + | 09/17/ | Telephone | [facility] | Khushbu Cortez, | | | 2012 | | [facility] | [place], [place] | | | | | [address] | [address] | | | | | [address] | | | | | | [place] | | | | | | [place], [place] | | | | | | [address] | | | | | | [phone] | | | +--------+ + + + [...]
--- OUTSIDE RECORDS SUMMARY | ~2019-08-07 | XMS | Encounter Summary ---
Demographics + + + | Address | [address] | | | [place] [address] | + + + | Home Phone | | + + + | Preferred Language | Unknown | + + + | Marital Status | | + + + | Sabianism Affiliation | 1013 | + + + [...] Team Providers + +------+ + | Care Noodle Maker Name | Role | Phone | + +------+ + | Romy De La Paz MD | PCP | | + +------+ + Encounter Details +--------+ + + + + | Date | Type | Department | Care Team | Description | +--------+ + + + + | 07/18/ | Preadmit | [facility] | No, Physician | | | 2019 | Visit | [facility] | | | | | | CLINIC [address] | | | | | | [place], [place] | | | | | | [address] | | | | | | [phone] | | | +--------+ + + + [...] + | Blood Pressure | 102/53 | 07/18/20191447 PDT | + + + + | Pulse | 62 | 07/18/20191447 PDT | + + + + | Temperature | - | - | + + + + | Respiratory Rate | - | - | + + + + | Oxygen Saturation | 99% | 07/18/20191447 PDT | + + + + | Inhaled Oxygen | - | - | | Concentration | | | + + + + | Weight | 50.9 kg (112 lb 3.2 | 07/18/20191447 PDT | | | oz) | | + + + + | Height | 154.9 cm (5' 1") | 07/18/20191447 PDT | + + + + | Body Mass Index | 21.2 | 07/18/20191447 PDT | + + + + documented in this encounter Patient Instructions Instructions Ericka Rice RN - 07/18/2019 Outpatient Medications Marked as Taking for the 07/18/19 encounter (Preadmit Visit) with [facility] PAS ROOM 5 Medication Sig Instructions Ascorbic Acid [...] by elevating your feet Date Last Reviewed: 7147-0013 [employer] [address] [place] [address]. All righ ts reserved. This information is not intended as a substitute for professional medical care. Always follow your healthcare professional's instructions. documented in this encounter Plan of Treatment +--------+---------+ + + + | Date | Type | Specialty | Care Team | Description | +--------+---------+ + + + | 08/16/ | Office | Orthopedic Surgery | Gabi Guzman | | | 2019 | Visit | | [address] | | | | | | [facility] | | | | | | [place] [address] | | | | | | [phone] | | | | | | | | +--------+---------+ + + + | 08/16/ | Office | Pain Medicine | Denys Sibley, | | | 2019 | Visit | | DO [address] | | | | | | [address] [place] | | | | | | [address] | | | | | | | [...] Results for this | | | | 14:30 PDT | | procedure are in the | | | | | | results section. | + +--------+ + + + | MRSA NAAT | Routin | 07/18/2019 | | Results for this | | | e | 14:27 PDT | | procedure are in the | | | | | | results section. | + +--------+ + + + | PTT | Timed | 07/18/2019 | | Results for this | | | | 14:26 PDT | | procedure are in the | | | | | | results section. | + +--------+ + + + | PROTIME INR | Timed | 07/18/2019 | | Results for this | | | | 14:26 PDT | | procedure are in the | | | | | | results section. | + +--------+ + + + | CBC WITH | Timed | 07/18/2019 | | Results for this | | DIFFERENTIAL | | 14:26 PDT | | procedure are in the | | | | | | results section. | + +--------+ + + + | COMPREHENSIVE | Timed | 07/18/2019 | | Results for this | | METABOLIC PANEL | | 14:26 PDT | | procedure are in the | | | | | | results section. | + +--------+ + + + | ECG 12 LEAD | Timed | 07/18/2019 | | Results for this | | | | 14:24 PDT | | procedure are in the | | | | | | results section. | + +--------+ + + + documented in this encounter Results XR Chest PA and Lateral (07/18/2019 15:24 PDT) + + | Specimen | + [...] pneumothorax. Cardiac and mediastinal contours | | | normal. No significant bone abnormality. IMPRESSION: Blunting | | | of the posterior left costophrenic angle representing some | | | combination of effusion and atelectasis. Signed by: Chester | | | Sj Caruso Date/Time: 07/18/2019 4:58 PM | | + + + + + | Procedure Note | + + | Junior, Rad Results In - 07/18/2019 1702 PDT | | CHEST PA AND LATERAL [...] +---------+ + + Type and Screen (07/18/2019 14:30 PDT) + + + + + + [...] | [facility] | | | Screen | [facility] | | LABORATORY | | | | [address];[place] [address] | | | | + + + + + + + + | Specimen | + + | Blood | + + + + + + + | Performing | Address | City/State/Zipcode | Phone Number | | Organization | | | | + + + + + | [facility] | [address] | [place] [address] | [phone] | + + + + + MRSA NAAT (07/18/2019 14:27 PDT) + + + + + + [...] [facility] | | | | performed at [facility] | | LABORATORY | | | | [address];[place], [place] | | | | | | [address] | | | | + + + + + + + + | Specimen | + + | Tissue | + + + + + + + | Performing | Address | City/State/Zipcode | Phone Number | | Organization | | | | + + + + + | [facility] | [address] | [place] [address] | [phone] | + + + + + Protime INR (07/18/2019 14:26 PDT) + + + + + + | Component | Value | Ref Range | Performed | Pathologist | | | | | At | Signature | + + + + + + | INR | 1.0Comment: REFERENCE | | [facility] | | | | RANGE:0.9 - | | LABORATORY | | | | 1.2 NON-ANTICOAGULATE | | | | | | D2.0 - 3.0 ALL OTHER | | | | | | THERAPEUTIC | | | | | | INDICATIONS2.5 - 3.5 | | | | | | MECHANICAL HEART VALVES, | | | | | | RECURRENT OR SYSTEMIC | | | | | | EMBOLISMTesting | | | | | | performed at [facility];[address] | [address];[place] | | | | | | [address] | | | | + + + + + + + + | Specimen | + + | Blood | + + + + + + + | Performing | Address | City/State/Zipcode | Phone Number | | Organization | | | | + + + + + | [facility] | [address] | [place] [address] | [phone] | + + + + + PTT (07/18/2019 14:26 PDT) + + + + + + | Component | Value | Ref Range | Performed | Pathologist | | | | | At | Signature | + + + + + + | PTT | 29Comment: Testing | 23 - 32 seconds | [facility] | | | | performed at [facility];[address] | | LABORATORY | | | | [address];[place] | | | | | | [address] | | | | + + + + + + + + | Specimen | + + | Blood | + + + + + + + | Performing | Address | City/State/Zipcode | Phone Number | | Organization | | | | + + + + + | [facility] | [address] | [place] [address] | [phone] | + + + + + Comprehensive Metabolic Panel (07/18/2019 14:26 PDT) + + + + + + [...] | >60Comment: GFR <60: | >60 | [facility] | | | GFR | CHRONIC KIDNEY [...] | | | | | performed at [facility], [address] | | | | | | [facility], | | | | | | [place] [address] | | | | + + + + + + + + | Specimen | + + | Blood | + + + + + + + | Performing | Address | City/State/Zipcode | Phone Number | | Organization | | | | + + + + + | [facility] | [address] | [place] [address] | [phone] | + + + + + CBC with Differential (07/18/2019 14:26 PDT) + + + + + + [...] | RBC | 4.24 | 3.70 - 5.10 | [facility] | | | | | M/uL | LABORATORY | | [...] 0.03Comment: Testing | 0.00 - 0.10 | [facility] | | | Absolute | performed at [facility], [address] | K/uL | LABORATORY | | | | [address], | | | | | | [place] [address] | | | | + + + + + + + + | Specimen | + + | Blood | + + + + + + + | Performing | Address | City/State/Zipcode | Phone Number | | Organization | | | | + + + + + | [facility] | [address] | [place] [address] | [phone] | + + + + + ECG 12 lead (07/18/2019 14:24 PDT) + + + + + + [...] MD | | | | | | 69) on 07/19/2019 | | | | | [...]
--- OUTSIDE RECORDS SUMMARY | ~2019-08-07 | XMS | Encounter Summary ---
Demographics + + + | Address | [address] | | | [place] [address] | + + + | Home Phone | | + + + | Preferred Language | Unknown | + + + | Marital Status | Single | + + + | Christian Affiliation | NON | + + + | Race | White | + + + | Ethnic Group | Not or | + + + Author + + + | Author | [facility] | + + + | Organization | [facility] | + + + | Address | Unknown | + + + | Phone | Unavailable | + + + Support + + +---------+ + | Name | Relationship | Address | Phone | + + +---------+ + | Royce Menchaca | ECON | Unknown | | + + +---------+ + Care Team Providers + +------+ + | Care Room Service Manager Name | Role | Phone | [...] Management | | 2016 | | at [facility] [address] | [address] | (follow up BPs) | | | | [address] [place] Mailcode: | [address] [place], | | | | | [facility] | [place] [address] | | | | | Health and Healing, | [phone] | | | | | Building | | | | | | Floor [place], [place] | | | | | | [address] | | | | | | [phone] | | | +--------+ + + + [...]
--- OUTSIDE RECORDS SUMMARY | ~2019-08-07 | XMS | Encounter Summary ---
Demographics + + + | Address | [address] | | | [place] [address] | + + + | Home Phone [...] + + + | Author | [facility] | + + + | Organization | [facility] | + + + | Address | Unknown | + + + | Phone | Unavailable | + + + Support + + +---------+ + | Name | Relationship | Address | Phone | + + +---------+ + | Royce Menchaca | ECON | Unknown | | + + +---------+ + Care Team Providers + +------+ + | Care Organizational Development Consultant Name | Role | Phone | + +------+ + | Oxana Nye | PCP | Unavailable | + +------+ + Encounter Details +--------+ + + + + | Date | Type | Department | Care Team | Description | +--------+ + + + + | 03/30/ | MyChart | Cardiology General | Airam Fuchs MD | RE: Heart monitor | | 2016 | Encounter | at [facility] [address] | [address] [facility] | | | | | [address] Mailcode: | [address] [place], | | | | | [address] [facility] | [place] [address] | | | | | Health and Healing, | [phone] | | | | | [facility] | | | | | | Floor [place], [place] | | | | | | [address] | | | | | | [phone] | | | +--------+ + + + [...]
--- OUTSIDE RECORDS SUMMARY | ~2019-08-07 | XMS | Encounter Summary ---
Demographics + + + | Address | [address] | | | [place] [address] | + + + | Home Phone [...] Author + + + | Author | [facility] | + + + | Organization | [facility] | + + + | Address | Unknown | + + + | Phone | Unavailable | + + + Support + + +---------+ + | Name | Relationship | Address | Phone | + + +---------+ + | Royce Menchaca | ECON | Unknown | | + + +---------+ + Care Team Providers + +------+ + | Care Plug Making Operator Name | Role | Phone | [...] | | 2016 | Encounter | at [facility] [address] | [address] | medical records from | | | | Abbe Soto Mailcode: | [address] [facility], | [facility] in | | | | [address] | [place] [address] | [facility] | | | | [facility] He[facility], | [phone] | [facility] | | | | | | Ant | | | | Floor [place], [place] | | | | | | [address] | | | | | | [phone] | | | +--------+ + + + [...]
--- OUTSIDE RECORDS SUMMARY | ~2019-08-07 | XMS | Encounter Summary ---
Demographics + + + | Address | [address] | | | [place] [address] | + + + | Home Phone [...] Team Providers + +------+ + | Care Fitness Teacher Name | Role | Phone | [...] as of this encounter Discharge Summaries Interface, Installer Technician In - 08/03/2006 2:03 AM PDT [id number]/ [id number] ROSANA Suarez [id number] Admission Date: 06/26/2006 Discharge Date: 06/30/2006 Staff [...] up with her primary care doctor in [place] to get lab followup within the next [...] psychiatrist, Dr. Pham; his phone number is [phone]. She is to make a followup appointment with him within the next week. The patient is also to follow up with Dr. Kel Young, he is located as well in [place], [place], and is associated with [facility]. She is to follow up with him for repeat electrolytes including potassium, magnesium, and phosphorus within the next several days. Monroe Disla M.D. Sherita Madrid M.D., M.P.H. / [id number] / [id number] / [phone] / [phone] cc: * Dr. Pham [facility], [place] FAX: [phone] Kel Young M.D. Electronically signed by Sherita Madrid 08-02-2006 11:01:13 AM documented i n this encounter Plan of Treatment Not on filedocumented as of this encounter Visit Diagnoses Not on filedocumented in this encounter"
--- OUTSIDE RECORDS SUMMARY | ~2019-08-07 | XMS | Encounter Summary ---
Demographics + + + | Address | [address] | | | [place] [address] | + + + | Home Phone [...] Providers + +------+ + | Care Ore Dryer Name | Role | Phone | + +------+ + PCP | Unavailable | + +------+ + Encounter Details +--------+ + + + + | Date | Type | Department | Care Team | Description | +--------+ + + + + | 06/26/ | Respiratory | | Other, Faculty | | | 2006 | Therapy | | [phone] | | +--------+ + + + + [...] Hassan, | | | | | | FINANCE PROFESSOR | | | | + + + [...] [facility] | [address] | [place], [place] | | | DIAGNOSTICS - | [place] | [address] | | | PULMONARY FUNCTION | | | | + + + + + documented in this encounter Visit Diagnoses Not on filedocumented in this encounter"
--- OUTSIDE RECORDS SUMMARY | ~2019-08-07 | XMS | Encounter Summary ---
Demographics + + + | Address | [address] | | | [place] [address] | + + + | Home Phone [...] Team Providers + +------+ + | Care Fruit Canner Name | Role | Phone | + +------+ + | Miquel Calhoun MD | PCP | | + +------+ + Encounter Details +--------+ + + + + | Date | Type | Department | Care Team | Description | +--------+ + + + + | 09/13/ | Telephone | [facility] | Khushbu Cortez, | | | 2012 | | [facility] | CONTINUOUS IMPROVEMENT ENGINEER [place], [place] | | | | | [address] | [address] | | | | | [address] | | | | | | Aravind Hannon | | | | | | [place], [place] | | | | | | [address] | | | | | | [phone] | | | +--------+ + + + [...]
--- OUTSIDE RECORDS SUMMARY | ~2019-08-07 | XMS | Encounter Summary ---
Demographics + + + | Address | [address] | | | [place] [address] | + + + | Home Phone [...] Team Providers + +------+ + | Care Self Storage Manager Name | Role | Phone | [...] | | 2016 | Encounter | at [facility] [address] | [address] | [place] | | | | [address] Mailcode: | [address] [place], | | | | | [address] | [place] [address] | | | | | Health and Healing, | [phone] | | | | | | | | | | | Floor [place], [place] | | | | | | [address] | | | | | | [phone] | | | +--------+ + + + [...]
--- OUTSIDE RECORDS SUMMARY | ~2019-08-07 | XMS | Encounter Summary ---
Demographics + + + | Address | [address] | | | [place] [address] | + + + | Home Phone [...] | Author | [facility] (Historical as of | | | 06-16-19) | + + + | Organization | [facility] (Historical as of | | | [...] Team Providers + +------+ + | Care Card Writer Hand Name | Role | Phone | + +------+ + | Romy De La Paz MD | PCP | | + +------+ + Encounter Details +--------+ + + + + | Date | Type | Department | Care Team | Description | +--------+ + + + + | 08/03/ | Procedure | [facility] | | | | 2019 | Pass | [facility] Center | | | | | | Operating Room [address] | | | | | | [address] [facility] | | | | | | [place] [address] | | | | | | [phone] | | | +--------+ + + + [...] WARREN | | | | | | [facility] [place] [address] | | | | | | [phone] | | | | | | | | +--------+---------+ + + + as of this encounter Visit Diagnoses Not on filein this encounter"
--- OUTSIDE RECORDS SUMMARY | ~2019-08-07 | XMS | Clinical Summary ---
Demographics + + + | Address | [address] | | | [place] [address] | + + + | Home Phone [...] Providers + +------+ + | Care Technical Training Manager Name | Role | Phone [...] | 19 | | | | terminal carman current | Responsiveness (May | | | [...] Overview: Added automatically from request for surgery [id number] | + + + + + | Spondylosis without myelopathy or radiculopathy, lumbosacral | 03/20/2019 | | region | | + + + + + | Overview: Added automatically from request for surgery [id number] | + + + + + | Chronic bilateral low back pain without sciatica | 03/20/2019 | + + + + + | Overview: Added automatically from request for surgery [id number] | + + + + + | Intervertebral disc disorders with radiculopathy, lumbosacral | 02/25/2019 | | region | | + + + + + | Overview: Added automatically from request for surgery [id number] | + + + + + | Chronic low back pain with sciatica | 02/25/2019 | + + + + + | Overview: Added automatically from request for surgery [id number] | + + + + + | Lumbar region somatic dysfunction | 02/25/2019 | + + + + + | Overview: Added automatically from request for surgery [id number] | + + + + + | Strain of lumbar region | 02/25/2019 | + + + + + | Overview: Added automatically from request for surgery [id number] | + + + + + | Spinal stenosis of lumbosacral region | 02/25/2019 | + + + + + | Overview: Added automatically from request for surgery [id number] | + + + + + | [...] Overview: Added automatically from request for surgery [id number] | | Problem List Faculty Administrator Utility | + + + + + [...] + +---+ + + | Overview: LOUISE [id number] Decision | + + + +---+ | [...] | | | | | pain; terminal carman | | | | | | current [...] + + | Brother | | | ND | | | | (Age | | [...] [address] | | | | | | [address] | | | | | | [place] [address] | | | | | | [phone] | | | | | | | | +--------+---------+ + + + | 08/16/ | Office | Pain Medicine | Denys Sibley, | | | 2019 | Visit | | DO [address] | | | | | | [address] [place] | | | | | | [address] | | | | | | | [...] | | 03/04/ | 3228AN | | [id number]: Qty: 1 | ogical | Spine | MEDICAL - | | 2020 | S | | on 08/03/2019 by Cuong, | | Lumbar | STJU | | | /[id number] | | MD Maykel | Stimul | [...] | | 11/23/ | 3186AN | | [id number]: Qty: 1 on | | | MEDICAL - | | 2020 | S | | 03/28/2019 by Sonja, | | | STJU | | | /[id number] | | DO Alfredo | | | [...] | | | Needs | | | CHECKER STOCKER | | | reques | | | [...] | | | POC | performed at [facility];[address] | | LABORATORY | | | | [address];[place], [place] | | | | | | [address] | | | | + + + + + + + + | Specimen | + + | | + + + + + + + | Performing | Address | City/State/Zipcode | Phone Number | | Organization | | | | + + + + + | [facility] | [address] | [place] [address] | [phone] | + + + + + [place] [...] CRNA - 08/03/2019 0952 PDT Anesthesia Airway Ifnqauczw76/4/2019 | | 9:33Preprocedure check: patient identified, oxygen, [...] + + + | BB BAND | [id number] | | [facility] | | | | | | LABORATORY | | + + + + + + | BB BAND | Testing performed at | | [facility] | | | | [facility];[address] | | LABORATORY | | | | [place]rzej;[place] [address] | | | | + + + + + + + + | Specimen | + + | Blood | + + + + + + + | Performing | Address | City/State/Zipcode | Phone Number | | Organization | | | | + + + + + | [facility] | [address] | [place] [address] | [phone] | + + + + + XR [...] [facility] | | | | performed at [facility];[address] | | LABORATORY | | | | [address];[place] | | | | | | [address] | | | | + + + + + + + + | Specimen | + + | Tissue | + + + + + + + | Performing | Address | City/State/Zipcode | Phone Number | | Organization | | | | + + + + + | [facility] | [address] | [place] [address] | [phone] | + + + + + PTT (07/18/2019 14:26 PDT) + + + + + + | Component | Value | Ref Range | Performed | Pathologist | | | | | At | Signature | + + + + + + | PTT | 29Comment: Testing | 23 - 32 seconds | [facility] | | | | performed at [facility] | | LABORATORY | | | | [address];[place], [place] | | | | | | [address] | | | | + + + + + + + + | Specimen | + + | Blood | + + + + + + + | Performing | Address | City/State/Zipcode | Phone Number | | Organization | | | | + + + + + | [facility] | [address] | [place] [address] | [phone] | + + + + + Protime INR (07/18/2019 14:26 PDT) + + + + + + | Component | Value | Ref Range | Performed | Pathologist | | | | | At | Signature | + + + + + + | INR | 1.0Comment: REFERENCE | | [facility] | | | | RANGE:0.9 [...] | | | | | performed at [facility];[address] | | [address];[place] | | | | | | [address] | | | | + + + + + + + + | Specimen | + + | Blood | + + + + + + + | Performing | Address | City/State/Zipcode | Phone Number | | Organization | | | | + + + + + | [facility] | [address] | [place] [address] | [phone] | + + + + + CBC [...] | | | | | [place] [address] | | | | + + + + + + + + | Specimen | + + | Blood | + + + + + + + | Performing | Address | City/State/Zipcode | Phone Number | | Organization | | | | + + + + + | [facility] | [address] | [place] [address] | [phone] | + + + + + Comprehensive [...] | | | | | | MDRD IDGA traceable | | | | | | equation.Testing | | | | | | performed at [facility], [address] | | | | | | [facility], | | | | | | [place] [address] | | | | + + + + + + + + | Specimen | + + | Blood | + + + + + + + | Performing | Address | City/State/Zipcode | Phone Number | | Organization | | | | + + + + + | [facility] | [address] | [place] [address] | [phone] | + + + + + ECG [...] +---------+--------+ | INDIVIDUAL ASSURANCE | INDIVI | [id number] | | | | Indemn | | [...] +--------+ +---------+--------+ | MEDICARE | MEDICA | [id number] | | [phone] | | Medica | | | RE | | 991-Pr | 5 | | re | | | PART A | | esent | | | | | | AND B | | | | | | + +--------+ +--------+ +---------+--------+ | MEDICARE | MEDICA | [id number] | | [phone] | | Medica | | | RE | | 991-Pr | 5 | | re | | | PART A | | esent | | | | | | AND B | | | | | | + +--------+ +--------+ +---------+--------+ | MEDICARE | MEDICA | [id number] | | [phone] | | Medica | | | RE | | 991-Pr | 5 | | re | | | PART A | | esent | | | | | | AND B | | | | | | + +--------+ +--------+ +---------+--------+ | MEDICARE | MEDICA | [id number] | | [phone] | | Medica | | | RE | | 991-Pr | 5 | | re | | | PART A | | esent | | | | | | AND B | | | | | | + +--------+ +--------+ +---------+--------+ | INDIVIDUAL ASSURANCE | INDIVI | [id number] | | | | Indemn | | [...] +---------+--------+ | INDIVIDUAL ASSURANCE | INDIVI | [id number] | | | | Indemn | | [...] +---------+--------+ | INDIVIDUAL ASSURANCE | INDIVI | [id number] | | | | Indemn | | [...] | 1945 | [phone] | [place] [address] | | | jose | | | 8 (Home) | | + +--------+ +--------+ + + | McintoshSkinnyXiong | Person | Self | [birth year] | [address] | | [place] | al/Fam | | 1945 | [phone] | [place] [address] | | | jose | | | 8 (Home) | | + +--------+ +--------+ + + | Ibeth Rubiou | Person | Self | [birth year] | [address] | | [place] | al/Fam | | 1945 | [phone] | [place] [address] | | | jose | | | 8 (Home) | | + +--------+ +--------+ + + | Ibeth Rubiou | Person | Self | [birth year] | [address] | | [place] | al/Fam | | 1945 | [phone] | [place] [address] | | | jose | | | 8 (Home) | | + +--------+ +--------+ + + Advance Directives Patient has advance care planning documents, and code status on file. For more information, please contact:[facility] [place] [address] + + + + + | Code [...]
--- OUTSIDE RECORDS SUMMARY | ~2019-08-07 | XMS | Encounter Summary ---
Demographics + + + | Address | [address] | | | [place] [address] | + + + | Home Phone [...] Author + + + | Author | [facility] | + + + | Organization | [facility] | + + + | Address | Unknown | + + + | Phone | Unavailable | + + + Support + + +---------+ + | Name | Relationship | Address | Phone | + + +---------+ + | Royce Menchaca | ECON | Unknown | | + + +---------+ + Care Team Providers + +------+ + | Care Fence Installer Helper Name | Role | Phone | + +------+ + | Miquel Calhoun MD | PCP | | + +------+ + Encounter Details +--------+ + + + + | Date | Type | Department | Care Team | Description | +--------+ + + + + | 10/18/ | Telephone | [facility] | Khushbu Cortez, | | | 2012 | | [facility] | OPTICAL MECHANIC APPRENTICE [place], [place] | | | | | [address] | [address] | | | | | [address] | | | | | | Aravind Hannon | | | | | | [place], [place] | | | | | | [address] | | | | | | [phone] | | | +--------+ + + + [...]
--- OUTSIDE RECORDS SUMMARY | ~2019-08-07 | XMS | Encounter Summary ---
Demographics + + + | Address | [address] | | | [place] [address] | + + + | Home Phone [...] Providers + +------+ + | Care Research Development Director Name | Role | Phone | [...] | | 2016 | Encounter | at [facility] [address] | [address] | havea problem with | | | | [address] Mailcode: | [address] [place], | my heart. | | | | [address] [place] [address] | [place] [address] | | | | | Health [facility] Healing, | [phone] | | | | | | | | | | | Floor [place], [place] | | | | | | [address] | | | | | | [phone] | | | +--------+ + + + [...]
--- OUTSIDE RECORDS SUMMARY | ~2019-08-07 | XMS | Encounter Summary ---
Demographics + + + | Address | [address] | | | [place] [address] | + + + | Home Phone [...] Team Providers + +------+ + | Care Edi Developer Name | Role | Phone | + +------+ + PCP | Unavailable | + +------+ + Encounter Details +--------+ + + + + | Date | Type | Department | Care Team | Description | +--------+ + + + + | 06/26/ | Respiratory | | Other, Faculty | | | 2006 | Therapy | | [phone] | | +--------+ + + + + [...] RADHA ALONZO | [address] | [place], [place] | | | DIAGNOSTICS - | [place] | [address] | | | PULMONARY FUNCTION | | | | + + + + + documented in this encounter Visit Diagnoses Not on filedocumented in this encounter"
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
--- OUTSIDE RECORDS SUMMARY | ~2019-08-07 | XMS | Encounter Summary ---
Demographics + + + | Address | [address] | | | [place] [address] | + + + | Home Phone [...] Team Providers + +------+ + | Care Electrical Technician Instructor Name | Role | Phone | + +------+ + | Miquel Calhoun MD | PCP | | + +------+ + Encounter Details +--------+ + + + + | Date | Type | Department | Care Team | Description | +--------+ + + + + | 11/12/ | Telephone | [facility] | Khushbu Cortez, | | | 2013 | | [facility] | FILE CONVERSION OPERATOR [place], [place] | | | | | [address] | [address] | | | | | [address] | | | | | | Aravind Hannon | | | | | | [place], [place] | | | | | | [address] | | | | | | [phone] | | | +--------+ + + + [...]
--- OUTSIDE RECORDS SUMMARY | ~2019-08-07 | XMS | Encounter Summary ---
Demographics + + + | Address | [address] | | | [place] [address] | + + + | Home Phone [...] Team Providers + +------+ + | Care Stain Dipper Name | Role | Phone | [...] for | | 2015 | | at [facility] [address] | [address] | new pt appt) | | | | [address] Mailcode: | [address] [place], | | | | | [facility] | [place] [address] | | | | | Health and Healing, | [phone] | | | | | [facility] | | | | | | Floor [place], [place] | | | | | | [address] | | | | | | [phone] | | | +--------+ + + + [...]
--- OUTSIDE RECORDS SUMMARY | ~2019-08-07 | XMS | Encounter Summary ---
Demographics + + + | Address | [address] | | | [place] [address] | + + + | Home Phone [...] Team Providers + +------+ + | Care Lockstitch Sleeve Maker Name | Role | Phone | + +------+ + | Oxana Nye | PCP | Unavailable | + +------+ + Encounter Details +--------+------+ + + + | Date | Type | Department | Care Team | Description | +--------+------+ + + + | 03/09/ | Lab | Laboratory at [facility] | | Chest pain, | | 2016 | | [address] | | unspecified type | | | | [place], [place] | | | | | | [address] | | | | | | [phone] | | | +--------+------+ + + + [...] + + + + + | [facility] | [address] | [place], [place] | | | | [address] | [address] | | + + + + + documented in this encounter Visit Diagnoses + + | Diagnosis | + + | Chest pain, unspecified type | + + documented in this encounter"
--- OUTSIDE RECORDS SUMMARY | ~2019-08-07 | XMS | Encounter Summary ---
Demographics + + + | Address | [address] | | | [place] [address] | + + + | Home Phone | | + + + | Preferred Language | Unknown | + + + | Marital Status | Single | + + + | Restorationism Affiliation | NON | + + + [...] Team Providers + +------+ + | Care Dispatch Associate Name | Role | Phone | [...] [facility] | PRODUCT MARKETING COORDINATOR [place], [place] | | | | | [address] | [address] | | | | | [address] | | | | | | Aravind Hannon | | | | | | [place], [place] | | | | | | [address] | | | | | | [phone] | | | +--------+ + + + [...]
--- OUTSIDE RECORDS SUMMARY | ~2019-08-07 | XMS | Encounter Summary ---
[...] Providers + +------+ + | Care Mechanical Design Engineer Name | Role | Phone [...] | | | [address] | [place] [address] | | | | | [place], [place] | [phone] | | | | | [address] | | | | | | [phone] | | | +--------+ + + + [...] | | | | | [place] [address] | | | | | | [phone] | | | | | | | | +--------+---------+ + + + | 08/16/ | Office | Pain Medicine | Denys Sibley, | | | 2018 | Visit | | [address] | | | | | | [place] | | | | | | [address] | | | | | | | | +--------+---------+ + + + documented as of this encounter Visit Diagnoses Not on filedocumented in this encounter"
--- OUTSIDE RECORDS SUMMARY | ~2019-08-07 | XMS | Encounter Summary ---
Demographics + + + | Address | [address] | | | [place] [address] | + + + | Home Phone [...] Team Providers + +------+ + | Care Saas Architect Name | Role | Phone | + +------+ + | Romy De La Paz MD | PCP | | + +------+ + Encounter Details +--------+ + + + + | Date | Type | Department | Care Team | Description | +--------+ + + + + | 07/17/ | Prep for | [facility] | Maykel Hutchins MD | Chronic low back | | 2019 | Procedure | [facility] | [address] | pain with sciatica, | | | | [facility] | [address] [place], | sciatica laterality | | | | [address] [place] | [place] [address] | unspecified, | | | | [facility] [place] | [phone] | unspecified back | | | | [address] | | pain laterality | | | | [phone] | | (Primary Dx); Right | | [...] | | | | | [place] [address] | | | | | | [phone] | | | | | | | | +--------+---------+ + + + | 08/16/ | Office | Pain Medicine | Denys Sibley, | | | 2018 | Visit | | DO [address] | | | | | | [place] | | | | | | [address] | | | | | | | | +--------+---------+ + + + + +--------+ + + | Name | Priori | Associated Diagnoses | Order Schedule | | | ty | | | + +--------+ + + | CBC with Differential | Routin | Chronic low back | Expected: | | | e | pain with sciatica, | 07/19/2019, Expires: | | | | sciatica laterality | 07/17/2020 | | | | unspecified, | | | | | unspecified back | | | | | pain laterality | | | | | Right lumbar | | | | | radiculopathy | | | | | Degenerative lumbar | | | | | spinal stenosis | | + +--------+ + + | Comprehensive Metabolic Panel | Routin | Chronic low back | Expected: | | | e | pain with sciatica, | 07/19/2019, Expires: | | | | sciatica laterality | 07/17/2020 | | | | unspecified, | | | | | unspecified back | | | | | pain laterality | | | | | Right lumbar | | | | | radiculopathy | | | | | Degenerative lumbar | | | | | spinal stenosis | | + +--------+ + + | Protime INR | Routin | Chronic low back | Expected: | | | e | pain with sciatica, | 07/19/2019, Expires: | | | | sciatica laterality | 07/17/2020 | | | | unspecified, | | | | | unspecified back | | | | | pain laterality | | | | | Right lumbar | | | | | radiculopathy | | | | | Degenerative lumbar | | | | | spinal stenosis | | + +--------+ + + | PTT | Routin | Chronic low back | Expected: | | | e | pain with sciatica, | 07/19/2019, Expires: | | | | sciatica laterality | 07/17/2020 | | | | unspecified, | | | | | unspecified back | | | | | pain laterality | | | | | Right lumbar | | | | | radiculopathy | | | | | Degenerative lumbar | | | | | spinal stenosis | | + +--------+ + + | Type and Screen | Routin | Chronic low back | Expected: | | | e | pain with sciatica, | 07/19/2019, Expires: | | | | sciatica laterality | 07/17/2020 | | | | unspecified, | | | | | unspecified back | | | | | pain laterality | | | | | Right lumbar | | | | | radiculopathy | | | | | Degenerative lumbar | | | | | spinal stenosis | | + +--------+ + + | ECG 12 lead | Routin | Chronic low back | Expected: | | | e | pain with sciatica, | 07/19/2019, Expires: | | | | sciatica laterality | 07/17/2020 | | | | unspecified, | | | | | unspecified back | | | | | pain laterality | | | | | Right lumbar | | | | | radiculopathy | | | | | Degenerative lumbar | | | | | spinal stenosis | | + +--------+ + + | XR Chest PA and Lateral | Routin | Chronic low back | Expected: | | | e | pain with sciatica, | 07/19/2019, Expires: | | | | sciatica laterality | 07/17/2020 | | | | unspecified, | | | | | unspecified back | | | | | pain laterality | | | | | Right lumbar | | | | | radiculopathy | | | | | Degenerative lumbar | | | | | spinal stenosis | | + +--------+ + + | MRSA NAAT | Routin | Chronic low back | Expected: | | | e | pain with sciatica, | 07/19/2019, Expires: | | | | sciatica laterality | 07/17/2020 | | | | unspecified, | | | | | unspecified back | | | | | pain laterality | | | | | Right lumbar | | | | | radiculopathy | | | | | Degenerative lumbar | | | | | spinal stenosis | | + +--------+ + + documented [...]
--- OUTSIDE RECORDS SUMMARY | ~2019-08-07 | XMS | Encounter Summary ---
Demographics + + + | Address | [address] | | | [place] [address] | + + + | Home Phone [...] + + | Author | [facility] (Historical as of | | | 06-16-19) | + + + | Organization | [facility] (Historical as of | | | [...] Providers + +------+ + | Care Supply Teacher Name | Role | Phone | + +------+ + | Romy De La Paz MD | PCP | | + +------+ + Encounter Details +--------+---------+ + + + | Date | Type | Department | Care Team | Description | +--------+---------+ + + + | 08/03/ | Surgery | [facility] | Maykel Hutchins MD | SPINAL CORD | | 2019 | | [facility] | [address] | STIMULATOR - | | | | Operating Room [address] | [place] [address] | THORACIC LAMINECTOMY | | | | [address] | [phone] | | | | | [place] [address] | | | | | | [phone] | | | +--------+---------+ + + + [...] [address] | | | | | | [place] [address] | | | | | | [phone] | | | | | | | | +--------+---------+ + + + as of this encounter Visit Diagnoses Not on filein this encounter Admitting Diagnoses + + | Diagnosis | + + | M96.1 M54.16 M54.17 | + +"
--- OUTSIDE RECORDS SUMMARY | ~2019-08-07 | XMS | Encounter Summary ---
Demographics + + + | Address | [address] | | | [place] [address] | + + + | Home Phone [...] Team Providers + +------+ + | Care Buffet Waiter/Waitress Name | Role | Phone | + [...] | | [address] [place] | [place] [address] | | | | | [place] | [phone] | | | | | [address] | | | | | | [phone] | | | +--------+ + + + [...] | | | | | [place] [address] | | | | | | [phone] | | | | | | | | +--------+---------+ + + + | 08/16/ | Office | Pain Medicine | Denys Sibley, | | | 2018 | Visit | | [address] | | | | | | [place] | | | | | | [address] | | | | | | | | +--------+---------+ + + + documented as of this encounter Visit Diagnoses Not on filedocumented in this encounter"
--- OUTSIDE RECORDS SUMMARY | ~2019-08-07 | XMS | Encounter Summary ---
Demographics + + + | Address | [address] | | | [place] [address] | + + + | Home Phone [...] Team Providers + +------+ + | Care Linen Checker Name | Role | Phone | [...] + + | 08/03/ | Surgery | [facility] | aMykel Hutchins MD | LAMINOTOMY THORACIC | | 2019 | | [facility] | [address] | / LUMBAR W/ | | | | OPERATING RO[address] | [place] | PLACEMENT SPINAL | | | | [address] | [place] [address] | CORD STIMULATOR | | | | [place] | [phone] | | | | | [address] | | | | | | [phone] | | | +--------+---------+ + + + [...] by elevating your feet Date Last Reviewed: 5955-9525 [employer]. [address] [place] [address]. All righ ts reserved. This information is not intended as a substitute for professional medical care. Always follow your healthcare professional's instructions. Acetaminophen; Hydrocodone tablets or capsules Brand Names: Anexsia, Lorcet, Lorcet HD, Lorcet Plus, Lortab, Marydel, Verdrocet, Vicodin, Vi codin ES, Vicodin HP, [...] information carefully each time. Talk to your engraver lettering regarding the use of this medicine in children. Special care may be needed. What side effects may I notice from receiving this medicine? Side effects that you should report to your doctor or health child care leader as soon as p ossible: [...] to your doctor or health child care leader if they continue or are bothersome): constipation [...] official disposal site. Contact the [facility] at [phone] or your [facility] government to find a site. [...] this medicine? Tell your doctor or health child care leader if your pain does not go away, [...] Decreased | | | | | | nursing home current | Responsiveness (May | | | [...] Amador Faria MSW - 08/04/2019 1412 PDTCase manager market development sent out Home Health order to Robi [...] her up today to go home to [facility]. Past Medical History: Diagnosis Date Acid [...] | | | | | [place] [address] | | | | | | [phone] | | | | | | | | +--------+---------+ + + + | 08/16/ | Office | Pain Medicine | Denys Sibley, | | | 2018 | Visit | | [address] | | | | | | [address] [place] | | | | | | [address] | | | | | | | [...] | | | Needs | | | APPLICATION PROJECT LEADER | | | reques | | | [...] [facility] | | LABORATORY | | | | [address];[place] | | | | | | [address] | | | | + + + + + + + + | Specimen | + + | | + + + + + + + | Performing | Address | City/State/Zipcode | Phone Number | | Organization | | | | + + + + + | [facility] | [address] | [place] [address] | [phone] | + + + + + POC Glucose (08/03/2019 16:15 PDT) + + + + + + | Component | Value | Ref Range | Performed | Pathologist | | | | | At | Signature | + + + + + + | Glucose, | 99Comment: Testing | 65 - 99 mg/dL | [facility] | | | POC | performed at [facility];[address] | | LABORATORY | | | | [address];[place] | | | | | | [address] | | | | + + + + + + + + | Specimen | + + | | + + + + + + + | Performing | Address | City/State/Zipcode | Phone Number | | Organization | | | | + + + + + | [facility] | [address] | [place] [address] | [phone] | + + + + + POC [...] [facility];[address] | | LABORATORY | | | | [address];[place], [place] | | | | | | [address] | | | | + + + + + + + + | Specimen | + + | | + + + + + + + | Performing | Address | City/State/Zipcode | Phone Number | | Organization | | | | + + + + + | [facility] | [address] [facility] | [place] [address] | [phone] | + + + + + POC [...] [facility];[address] | | LABORATORY | | | | [address];[place], [place] | | | | | | [address] | | | | + + + + + + + + | Specimen | + + | | + + + + + + + | Performing | Address | City/State/Zipcode | Phone Number | | Organization | | | | + + + + + | [facility] | [address] | [place] [address] | [phone] | + + + + + [place] [...] + + | Performing | Address | City/State/[facility] | Phone Number | | Organization | [...] Testing | 65 - 99 mg/dL | [facility] | | | POC | performed at [facility];[address] | | LABORATORY | | | | [address];[place] | | | | | | [address] | | | | + + + + + + + + | Specimen | + + | | + + + + + + + | Performing | Address | City/State/Zipcode | Phone Number | | Organization | | | | + + + + + | [facility] | [address] | [place] [address] | [phone] | + + + + + POC [...] [facility];[address] | | LABORATORY | | | | [address];[place], [place] | | | | | | [address] | | | | + + + + + + + + | Specimen | + + | | + + + + + + + | Performing | Address | City/State/Zipcode | Phone Number | | Organization | | | | + + + + + | [facility] | [address] | [place] [address] | [phone] | + + + + + Type [...] + + + | [facility] | [id number] | | [facility] | | | | | | LABORATORY | | + + + + + + | [facility] | Testing performed at | | [facility] | | | | [facility];[address] | | LABORATORY | | | | [address];[place] [address] | | | | + + + + + + + + | Specimen | + + | Blood | + + + + + + + | Performing | Address | City/State/Zipcode | Phone Number | | Organization | | | | + + + + + | [facility] | [address] | [place] [address] | [phone] | + + + + + POC [...] [facility];[address] | | LABORATORY | | | | [address];[place] | | | | | | [address] | | | | + + + + + + + + | Specimen | + + | | + + + + + + + | Performing | Address | City/State/Zipcode | Phone Number | | Organization | | | | + + + + + | [facility] | [address] | [place] [address] | [phone] | + + + + + documented [...]
--- OUTSIDE RECORDS SUMMARY | ~2019-08-07 | XMS | Encounter Summary ---
Demographics + + + | Address | [address] | | | [place] [address] | + + + | Home Phone [...] Team Providers + +------+ + | Care Generator Switchboard Operator Name | Role | Phone | + +------+ + | Wendi Aiken | PCP | | + +------+ + Encounter Details +--------+ + + + + | Date | Type | Department | Care Team | Description | +--------+ + + + + | 05/21/ | Orders Only | [facility] | Provider, | | | 2018 | | SYSTEM GENERIC OP | MD [address] | | | | | CONVERSION [address] | Vasquez Jara | | | | | [address] [place], [place] | [place] [address] | | | | | [address] | | | | | | [phone] | | | +--------+ + + + [...] | | | | | [place] [address] | | | | | | [phone] | | | | | | | | +--------+---------+ + + + | 08/16/ | Office | Pain Medicine | Denys Sibley, | | | 2018 | Visit | | DO Siri [address]OCK | | | | | | [place] | | | | | | [id number] | | | | | | | | +--------+---------+ + + + documented as of this encounter Visit Diagnoses Not on filedocumented in this encounter"
--- OUTSIDE RECORDS SUMMARY | ~2019-08-07 | XMS | Clinical Summary ---
Demographics + + + | Address | [address] | | | [place] [address] | + + + | Home Phone [...] Author | [facility] [employer] (Historical as of | | | 06-16-19) | + + + | Organization | [facility] (Historical as of | | | [...] Team Providers + +------+ + | Care Benefits Processor Name | Role | Phone | [...] +---------+------+------+-------+ | | Apply to affected | 48835 g | 3 | 04/30 | 04/30 [...] Overview: Added automatically from request for surgery [id number] | + + + + + | Radiculopathy of thoracolumbar region | 06/07/2019 | + + + + + | Overview: Added automatically from request for surgery [id number] | + + + + + | Radiculopathy, lumbosacral region | 06/07/2019 | + + + + + | Overview: Added automatically from request for surgery [id number] | + + + + + | Spondylosis without myelopathy or radiculopathy, cervical region | 03/20/2019 | + + + + + | Overview: Added automatically from request for surgery [id number] | + + + + + | Spondylosis without myelopathy or radiculopathy, lumbosacral | 03/20/2019 | | region | | + + + + + | Overview: Added automatically from request for surgery [id number] | + + + + + | Chronic bilateral low back pain without sciatica | 03/20/2019 | + + + + + | Overview: Added automatically from request for surgery [id number] | + + + + + | Strain of lumbar region | 02/25/2019 | + + + + + | Overview: Added automatically from request for surgery [id number] | + + + + + | Lumbar region somatic dysfunction | 02/25/2019 | + + + + + | Overview: Added automatically from request for surgery [id number] | + + + + + | Chronic low back pain with sciatica | 02/25/2019 | + + + + + | Overview: Added automatically from request for surgery [id number] | + + + + + | Intervertebral disc disorders with radiculopathy, lumbosacral | 02/25/2019 | | region | | + + + + + | Overview: Added automatically from request for surgery [id number] | + + + + + | Spinal stenosis of lumbosacral region | 02/25/2019 | + + + + + | Overview: Added automatically from request for surgery [id number] | + + + + + | [...] Overview: Added automatically from request for surgery [id number] | | Problem List Director Consumer Utility | + + + + + [...] [address] | | | | | | [place] [address] | | | | | | [phone] | | | | | | | [...] | | 11/23/ | [id number] | | [id number]: Qty: 1 on | | | MEDICAL - | | 2020 | S | | 03/28/2019 by Sonja, | | | JU | | | /[id number] | | DO Alfredo | | | [...] +------+-------+ + | MEDICARE | MEDICA | [id number] | | | [address] | | | RE | | | | [place] [address] | | | IP-OP | | | | | + +--------+ +------+-------+ + | COMMERCIAL OTHER | COMMER | [id number] | | | | | | CIAL [...] | 1945 | [phone] | [place] [address] | | | jose | | | [phone] | | + +--------+ +--------+ + +
--- OUTSIDE RECORDS SUMMARY | ~2019-08-07 | XMS | Encounter Summary ---
Demographics + + + | Address | [address] | | | [place] [address] | + + + | Home Phone [...] Team Providers + +------+ + | Care Precast Molder Name | Role | Phone | [...] | Pain | Diagnoses | Cr, | Billing And Accounting Staff Assistant Chh1 | | | | Management | PPS (pelvic | MD Britta | [address] | | | | | pain | [address] | | | | | syndrome) | [facility] | Mailcode: | | | | | Procedures | Rd | [facility] | | | | | CONSULT TO | [facility] [place] | for Health | | | | | PAIN CENTER | [address] | and Healing, | | | | | | Phone: | Building | | | | | | [phone] | 1,15th Floor | | | | | | Fax: | [place], [place] | | | | | | [phone] | [address] | | | | | | | Phone: | | | | | | | [phone] | | | | | | | Fax: | | | | | | | [phone] | +--------+--------+ + + + + Reason [...] | | | | | symptom | [place] | [address] | | | | | associated | [place] | [address] | | | | | with female | Urology [address] [place] | | | | | genital | [address] | [address] | | | | | organs | [address] [place], | [place], [place] | | | | | Unspecified | [place] [address] | [address] | | | | | urinary | Phone: | Phone: | | | | | incontinence | [phone] | [phone] | | | | | | Fax: | Fax: | | | | | | [phone] | [phone] | +--------+--------+ + + + + Encounter Details +--------+---------+ + + + | Date | Type | Department | Care Team | Description | +--------+---------+ + + + | 11/29/ | Office | [facility] | Britta Hankins MD | PPS (pelvic pain | | 2014 | Visit | [facility] [place] | [address] | syndrome) (Primary | | | | [address] | [address] [place], | Dx); Depression with | | | | [address] | [place] [address] | suicidal ideation; | | | | Aravind Hannon | [phone] | Recurrent UTI; | | | | [place], [place] | | Hypoestrogenism | | | | [address] | | | | | | [phone] | | | +--------+---------+ + + + [...] Referral to pain service here at [facility] 5. Let me know if you [...] (2 vag, 1 cs, she had to [facility] hospitalized after her second delivery for infection) seen at the request of Dr. Ck wan r pelvic pain and LUTs following pelvic reconstructive surgery. She is accompanied by her so sadiq Ball. He lives here in [place] so he is not fully aware of her recent health issues but h e did help in providing some of his mother's past history. 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 Long gold, she was hospitalized at [facility] in 2005 for a Vicodin overdose. [...] speaker, a good grandmother". Her physicians in [place] and elsewhere will not pre scribe pain [...] until she was able to leave her [facility] house at age 20. Her aunt recently [...] significant PVR, sensory dysfunction (early sensation); no TRIICA;n o IDCs;no UUI. Voiding was apparently small-volume, [...] estrogenization of the vulvova ginal tissues; negative SURGICAL APPLIANCE FITTER; no hypospadias of the urethra; + tenderness [...] F/U with Dr. Stover on return to [place]. I am Christine Monterroso functioning as a scribe for Dr. Britta Hankins. Christine Monterroso [facility] [address] [facility] [place] [address] I have reviewed, verified, and amended the [...] for afternoon appointments. Britta Hankins M.D., FACS Nutrition Professor [facility] documented in this [...]
--- OUTSIDE RECORDS SUMMARY | ~2019-08-07 | XMS | Encounter Summary ---
Demographics + + + | Address | [address] | | | [place] [address] | + + + | Home Phone [...] Providers + +------+ + | Care Automatic Cigar Wrapper Tender Name | Role | Phone | + +------+ + | Miquel Calhoun MD | PCP | | + +------+ + Encounter Details +--------+ + + + + | Date | Type | Department | Care Team | Description | +--------+ + + + + | 11/29/ | Documentati | [facility] | Khushbu Cortez, | | | 2013 | on | [facility] | TIPPLE ENGINEER [place], [place] | | | | | [address] | [address] | | | | | [address] | | | | | | [place] | | | | | | [facility] [place] | | | | | | [address] | | | | | | [phone] | | | +--------+ + + + [...]
--- OUTSIDE RECORDS SUMMARY | ~2019-08-07 | XMS | Encounter Summary ---
Demographics + + + | Address | [address] | | | [place] [address] | + + + | Home Phone [...] Team Providers + +------+ + | Care Bi Specialist Name | Role | Phone | [...] | 2015 | Encounter | at [facility] [address] | | Change: Effective | | | | [address] Mailcode: | | October 31 | | | | [facility] | | | | | | Health and Healing, | | | | | | Building | | | | | | Floor [place], [place] | | | | | | [address] | | | | | | [phone] | | | +--------+ + + + [...]
--- OUTSIDE RECORDS SUMMARY | ~2019-08-07 | XMS | Clinical Summary ---
Demographics + + + | Address | [address] | | | [place] [address] | + + + | Home Phone [...] | + + + | Organization | [facility] | + + [...] Providers + +------+ + | Care Iv Rn Name | Role | Phone | + +------+ + | Oxana Nye | PCP | Unavailable | + +------+ + Source Comments [facility] is fully live on both [facility] Ambulatory and [facility] InPatient.[facility] Allergies + + + + [...] tablet by | 90 | 3 | 02/28 | | Activ | | oral | [...] MEDICARE | MEDICA | xxxxxxxxxx | | [phone] | [address] | Medica | | | RE A & | | [phone] | [address] | [phone] | re | | | B | | esent | | [place] | | | | | | | | [address] | | + +--------+ +--------+ + +--------+ | [employer] | AARP | xxxxxxxxxx | 07/01/20 | [phone] | [address] | Indemn | | RETIRED PEOPLE | | | 12-Pre | 9 | [id number] | ity | | | | | sent | | [place] | | | | | | | | [address] | | + +--------+ +--------+ + +--------+ [...] | | 1945 | [phone] | [address] [place] | | | jose | | | 8 (Home) | [address] | + +--------+ +--------+ + +
--- OUTSIDE RECORDS SUMMARY | ~2019-08-07 | XMS | Encounter Summary ---
Demographics + + + | Address | [address] | | | [place] [address] | + + + | Home Phone [...] Team Providers + +------+ + | Care Oxyacetylene Burner Name | Role | Phone | [...] for | | 2015 | | at [facility] [address] | [address] | new pt appt) | | | | [address] [place] Mailcode: | [address] [place], | | | | | [facility] | [place] [address] | | | | | Health and Healing, | [phone] | | | | | [facility] | | | | | | Floor [place], [place] | | | | | | [address] | | | | | | [phone] | | | +--------+ + + + [...]
--- OUTSIDE RECORDS SUMMARY | ~2019-08-07 | XMS | Encounter Summary ---
Demographics + + + | Address | [address] | | | [place] [address] | + + + | Home Phone [...] Team Providers + +------+ + | Care Fabric And Accessories Estimator Name | Role | Phone | [...] | | | | | bilateral | [place], [place] | | | | | | low back | [address] | | | | | | pain with | Phone: | | | | | | right-sided | [phone] | | | | | | sciatica | Fax: | | | | | | | [phone] | | + + + + + [...] + + | 08/03/ | Hospital | [facility] | Maykel Hutchins MD | BACK PAIN, LUMBAR | | 2019 - | Encounter | [facility]ICAL [facility] ACUTE | [address] | (Primary Dx); | | | | CARE FLOOR [address] | [place], | Chronic bilateral | | 08/04/ | | [address] | [place] [address] | low back pain with | | 2019 | | [place] | [phone] | right-sided sciatica | | | | [address] | | | | | | [phone] | | | +--------+ + + + [...] by elevating your feet Date Last Reviewed: 3622-2183 [employer]. [address] [place] [address]. All righ ts reserved. This information is not intended as a substitute for professional medical care. Always follow your healthcare professional's instructions. Acetaminophen; Hydrocodone tablets or capsules Brand Names: Anexsia, Lorcet, Lorcet HD, Lorcet Plus, Lortab, Burt, Verdrocet, Vicodin, Vi codin ES, Vicodin HP, [...] information carefully each time. Talk to your retirement assistant regarding the use of this medicine in children. Special care may be needed. What side effects may I notice from receiving this medicine? Side effects that you should report to your doctor or health care aid as soon as p ossible: allergic reactions [...] (report to your doctor or health care aid if they continue or are bothersome): constipation [...] an official disposal site. Contact the [facility] at [phone] or your [facility] government to find a [...] medicine? Tell your doctor or health care aid if your pain does not go away, [...] Decreased | | | | | | terminal worker current | Responsiveness (May | | | [...] Amador Faria MSW - 08/04/2019 1412 PDTCase airborne weapons technical manager sent out Home Health order to [...] her up today to go home to [facility]. Past Medical History: Diagnosis Date Acid reflux [...] 100 mg Oral BID PRN Julien Guzman RECOOPERER HYDROcodone-acetaminophen (NORCO) 10-325 mg per tablet 1 tablet 1 tablet Oral Q4H PRN Julien Guzman, RECOOPERER 1 tablet at 08/04/19 0502 HYDROmorphone (DILAUDID) injection 0.2-0.4 mg 0.2-0.4 mg Intravenous Q1H PRN Maykel ortiz MD 0.2 mg at 08/03/19 1700 methocarbamol (ROBAXIN) tablet 1,500 mg 1,500 mg Oral Q6H PRN Julien Guzman RECOOPERER ondansetron (ZOFRAN ODT) disintegrating tablet 4 mg 4 mg Oral Q6H PRN Julien Guzman RECOOPERER rOPINIRole (REQUIP) tablet 4 mg 4 mg Oral 4x Daily PRN Maykel Hutchins MD senna (SENOKOT) tablet 8.6 mg 8.6 mg Oral BID PRN Julien Guzman, RECOOPERER sodium chloride 0.45% (1/2 NS) infusion Intravenous Continuous Maykel Hutchins MD 100 mL /hr at 08/03/19 1342 950 mL at 08/03/19 1342 sodium chloride 0.45% (1/2 NS) infusion Intravenous Continuous Julien Guzman RECOOPERER 100 m L/hr at 08/04/19 0057 Allergies [...] | | | | | | [place] [address] | | | | | | [phone] | | | | | | | | +--------+---------+ + + + | 08/16/ | Office | Pain Medicine | Denys Sibley, | | | 2018 | Visit | | [address] | | | | | | [place] | | | | | | [address] | | | | | | | [...] | | | Needs | | | PETROLEUM ENGINEERING PROFESSOR | | | reques | | | [...] | | | POC | performed at [facility];[address] | | LABORATORY | | | | [address];[place] | | | | | | [address] | | | | + + + + + + + + | Specimen | + + | | + + + + + + + | Performing | Address | City/State/Zipcode | Phone Number | | Organization | | | | + + + + + | [facility] | [address] | [place] [address] | [phone] | + + + + + POC Glucose (08/03/2019 16:15 PDT) + + + + + + | Component | Value | Ref Range | Performed | Pathologist | | | | | At | Signature | + + + + + + | Glucose, | 99Comment: Testing | 65 - 99 mg/dL | [facility] | | | POC | performed at [facility];[address] | | LABORATORY | | | | [address];[place], [place] | | | | | | [address] | | | | + + + + + + + + | Specimen | + + | | + + + + + + + | Performing | Address | City/State/Zipcode | Phone Number | | Organization | | | | + + + + + | [facility] | [address] | [place] [address] | [phone] | + + + + + POC [...] | | | POC | performed at [facility];[address] | | LABORATORY | | | | [address];[place] | | | | | | [address] | | | | + + + + + + + + | Specimen | + + | | + + + + + + + | Performing | Address | City/State/Zipcode | Phone Number | | Organization | | | | + + + + + | [facility] | [address] | [place] [address] | [phone] | + + + + + POC [...] | | | POC | performed at [facility];[address] | | LABORATORY | | | | [address];[place] | | | | | | [address] | | | | + + + + + + + + | Specimen | + + | | + + + + + + + | Performing | Address | City/State/Zipcode | Phone Number | | Organization | | | | + + + + + | [facility] | [address] | [place] [address] | [phone] | + + + + + LINSEY [...] | | | POC | performed at [facility];[address] | | LABORATORY | | | | [address];[place] | | | | | | [address] | | | | + + + + + + + + | Specimen | + + | | + + + + + + + | Performing | Address | City/State/Zipcode | Phone Number | | Organization | | | | + + + + + | [facility] | [address] | [place] [address] | [phone] | + + + + + POC Glucose (08/03/2019 9:14 PDT) + + + + + + | Component | Value | Ref Range | Performed | Pathologist | | | | | At | Signature | + + + + + + | Glucose, | 80Comment: Testing | 65 - 99 mg/dL | [facility] | | | POC | performed at [facility];[address] | | LABORATORY | | | | [address];[place] | | | | | | [address] | | | | + + + + + + + + | Specimen | + + | | + + + + + + + | Performing | Address | City/State/Zipcode | Phone Number | | Organization | | | | + + + + + | [facility] | [address] | [place] [address] | [phone] | + + + + + Type [...] + + + | BB BAND | [id number] | | [facility] | | | | | | LABORATORY | | + + + + + + | BB BAND | Testing performed at | | [facility] | | | | [facility];[address] | | LABORATORY | | | | [address];[place] [address] | | | | + + + + + + + + | Specimen | + + | Blood | + + + + + + + | Performing | Address | City/State/Zipcode | Phone Number | | Organization | | | | + + + + + | [facility] | [address] | [place] [address] | [phone] | + + + + + POC Glucose (08/03/2019 7:23 PDT) + + + + + + | Component | Value | Ref Range | Performed | Pathologist | | | | | At | Signature | + + + + + + | Glucose, | 77Comment: Testing | 65 - 99 mg/dL | [facility] | | | POC | performed at [facility];[address] | | LABORATORY | | | | [address];[place] | | | | | | [address] | | | | + + + + + + + + | Specimen | + + | | + + + + + + + | Performing | Address | City/State/Zipcode | Phone Number | | Organization | | | | + + + + + | [facility] | [address] | [place] [address] | [phone] | + + + + + documented [...] | | | | | | longer, glmvzw-qxy-ftvav use of | | | | | [...] | | | | | | | gwftlm-zvv-eblta use of at least | | | [...]
--- OUTSIDE RECORDS SUMMARY | ~2019-08-07 | XMS | Encounter Summary ---
Demographics + + + | Address | [address] | | | [place] [address] | + + + | Home Phone [...] Team Providers + +------+ + | Care Second Mate Name | Role | Phone | + [...] | Chest | Referring | [place] [address] | | | | | pressure | Provider Per | [address] | | | | | Procedures | Patient NO | [address] | | | | | [place] NEW | REFERRING | [place], [place] | | | | | PATIENT | PROVIDER PER | [address] Phone: | | | | | LEVEL V [place] | PT | [phone] | | | | | OFFICE/OUTPT | | Fax: | | | | | | | [phone] | | | | | VISIT,EST,LE | | | | | | | GINA III [place] | | | | | | | OFFICE/OUTPT | | | | | | | | | | | | | | VISIT,EST,LE | | | | | | | VL IV [place] | | | | | | [...] | | 2016 | Visit | at [facility] [address] | [address] | unspecified type | | | | Abbe Soto Mailcode: | [address] [place], | (Primary Dx); | | | | [address] | [place] [address] | Palpitations | | | | Health and Healing, | [phone] | | | | | [facility] | | | | | | Floor [place], [place] | | | | | | [address] | | | | | | [phone] | | | +--------+---------+ + + + [...] per Dr. Fuchs's note. Tiago Blake DO Retail Service Technician Clinical specialty foods cook/ Division of Cardiovascular Medicine Airam Nicole Md - 03/09/2016 3:27 PM PDT [facility] General Cardiology New Patient Evaluation Patient [...] She was then transf erred to [facility] in [facility] where she was put into [...] every couple of weeks. [facility] because she wants a second [...] LIPID LAB | [address] | [place], [place] | | | | [address] | [address] | | + + + + + documented in this encounter Visit Diagnoses + + | Diagnosis | + + | Chest pain, unspecified type - Primary | + + | Palpitations | + + documented in this encounter
--- OUTSIDE RECORDS SUMMARY | ~2019-08-07 | XMS | Encounter Summary ---
Demographics + + + | Address | [address] | | | [place] [address] | + + + | Home Phone [...] Team Providers + +------+ + | Care Bogger Operator Name | Role | Phone | [...] + + | 07/05/ | Telephone | [facility] | Maykel Hutchins MD | Advice Only; Other | | 2019 | | [facility] | [address] | (inform office) | | | | ORTHOPEDIC SPINE | [place] | | | | | [address] [place] | [place] [address] | | | | | [place] | [phone] | | | | | [address] | | | | | | [phone] | | | +--------+ + + + [...] | | | | | [place] [address] | | | | | | [phone] | | | | | | | | +--------+---------+ + + + | 08/16/ | Office | Pain Medicine | Denys Sibley, | | | 2018 | Visit | | DO [address] | | | | | | [address] [place] | | | | | | [address] | | | | | | | [...]
--- OUTSIDE RECORDS SUMMARY | ~2019-08-07 | XMS | Encounter Summary ---
Demographics + + + | Address | [address] | | | [place] [address] | + + + | Home Phone [...] Team Providers + +------+ + | Care Tile Layer Helper Name | Role | Phone | [...] | | 2016 | Encounter | at [facility] [address] | [address] | test results | | | | [address] [place] Mailcode: | [address] [place], | | | | | [address] | [place] [address] | | | | | Health and Healing, | [phone] | | | | | | | | | | | Floor [place], [place] | | | | | | [address] | | | | | | [phone] | | | +--------+ + + + [...]
--- OUTSIDE RECORDS SUMMARY | ~2019-08-07 | XMS | Encounter Summary ---
Demographics + + + | Address | [address] | | | [place] [address] | + + + | Home Phone [...] | Author | [facility] [place] (Historical as of | | | 06-16-19) | + + + | Organization | [facility] (Historical as of | | [...] Team Providers + +------+ + | Care Vinyl Welder And Fabricator Name | Role | Phone | [...] + + | 05/25/ | Telephone | [facility] | Denys Sibley, | Medication Question | | 2019 | | Neuroscience Center | DO [address] | | | | | [address] | [place], [place] | | | | | [place] | [address] | | | | | [address] | | | | | | [phone] | | | +--------+ + + + [...] [address] | | | | | | [place] [address] | | | | | | [phone] | | | | | | | | +--------+---------+ + + + as of this encounter Visit Diagnoses Not on filein this encounter"
--- OUTSIDE RECORDS SUMMARY | ~2019-08-07 | XMS | Encounter Summary ---
Demographics + + + | Address | [address] | | | [place] [address] | + + + | Home Phone [...] Team Providers + +------+ + | Care Forming Yardage Control Operator Name | Role | Phone | [...] 2012 | | [facility] | [address] | (Dr. Holbrook) | | | | [address] | [address] | | | | | [address] | [place], [place] | | | | | [facility] | [address] | | | | | [place], [place] | [phone] | | | | | [address] | | | | | | [phone] | | | +--------+ + + + [...]
--- OUTSIDE RECORDS SUMMARY | ~2019-08-07 | XMS | Encounter Summary ---
Demographics + + + | Address | [address] | | | [place] [address] | + + + | Home Phone [...] Providers + +------+ + | Care Appraiser Oil And Water Name | Role | Phone | + [...] | 2016 | Encounter | at [facility] [address] | [address] | | | | | [place] Mailcode: | [address] [place], | | | | | [address] | [place] [address] | | | | | Health and Healing, | [phone] | | | | | | | | | | | Floor [place], [place] | | | | | | [address] | | | | | | [phone] | | | +--------+ + + + [...]
--- OUTSIDE RECORDS SUMMARY | ~2019-08-07 | XMS | Encounter Summary ---
Demographics + + + | Address | [address] | | | [place] [address] | + + + | Home Phone [...] Team Providers + +------+ + | Care Curriculum Counselor Name | Role | Phone | [...] COURTNEY Andrews | | | | | [place], [place] | [place], [place] | | | | | [address] | [address] | | | | | [phone] | [phone] | | | | | | | [...] | + + + + + | [facility] | [address] [facility] [facility] [address] | [place] [address] | | | PATHOLOGY | [address] | | | + + + + + | [facility] | [facility] [facility] | [place] [address] | | | PATHOLOGY | [address] [...] + + + + + | [facility] DEPARTMENT OF | [address] | [place] [address] | | | PATHOLOGY | [address] | | | + + + + + | [facility] DEPARTMENT OF | [address] | [place] [address] | | | PATHOLOGY | [address] [...] DEPARTMENT OF | [address] | [place] [address] | | | PATHOLOGY | [address] | | | + + + + + | [facility] DEPARTMENT OF | [address] | [place] [address] | | | PATHOLOGY | [address] | | | + + + + + CREATININE, URINE (06/30/2006 8:30 AM PDT) + +-------+ + + + | Component | Value | Ref Range | Performed | Pathologist | | | | | At | Signature | + +-------+ + + + | CREATININE | 92.9 | mg/dL | [facility] | | | CONC UR | | [...] DEPARTMENT OF | [address] | [place] [address] | | | PATHOLOGY | [address] | | | + + + + + | [facility] DEPARTMENT OF | [address] | [place] [address] | | | PATHOLOGY | [address] [...] + + + + + | [facility] DEPARTMENT OF | [address] [facility] | [place] [address] | | | PATHOLOGY | [address] | | | + + + + + | [facility] DEPARTMENT OF | [address] [facility] | [place] [address] | | | PATHOLOGY | [address] [...] | + + + + + | [facility] | [address] [facility] [facility] | [place] [address] | | | PATHOLOGY | [address] | | | + + + + + | [facility] | [address] [facility] | [place] [address] | | | PATHOLOGY | [address] [...] + + + + + | [facility] DEPARTMENT OF | [address] [facility] | [place] [address] | | | PATHOLOGY | [address] | | | + + + + + | [facility] DEPARTMENT OF | [address] [facility] | [place] [address] | | | PATHOLOGY | [address] [...] + + | [facility] DEPARTMENT OF | [address] | [place] [address] | | | PATHOLOGY | [address] | | | + + + + + | [facility] DEPARTMENT OF | [address] | [place] [address] | | | PATHOLOGY | [address] | | | + + + + + CREATININE, URINE (06/30/2006 4:45 AM PDT) + +-------+ + + + | Component | Value | Ref Range | Performed | Pathologist | | | | | At | Signature | + +-------+ + + + | CREATININE | 40.1 | mg/dL | [facility] | | | CONC UR | | [...] DEPARTMENT OF | [address] | [place] [address] | | | PATHOLOGY | [address] | | | + + + + + | [facility] DEPARTMENT OF | [address] | [place] [address] | | | PATHOLOGY | [address] [...] + + + + + | [facility] DEPARTMENT OF | [address] | [place] [address] | | | PATHOLOGY | [address] | | | + + + + + | [facility] DEPARTMENT OF | [address] [address] | [place] [address] | | | PATHOLOGY | [address] [...] + + + + + | [facility] DEPARTMENT OF | [facility] | [place] [address] | | | PATHOLOGY | [address] | | | + + + + + | [facility] DEPARTMENT OF | [address] | [place] [address] | | | PATHOLOGY | [address] [...] | + + + + + | [facility] | [address] [facility] [facility] | [place] [address] | | | PATHOLOGY | [address] | | | + + + + + | [facility] DEPARTMENT OF | [address] [facility] | [place] [address] | | | PATHOLOGY | [address] [...] | + + + + + | [facility] | [address] [facility] [facility] | [place] [address] | | | PATHOLOGY | [address] | | | + + + + + | [facility] | [address] [facility] [facility] | [place] [address] | | | PATHOLOGY | [address] [...] + + + + + | [facility] DEPARTMENT OF | [address] | [place] [address] | | | PATHOLOGY | [address] | | | + + + + + | [facility] DEPARTMENT OF | [address] | [place] [address] | | | PATHOLOGY | [address] [...] + + + + + | [facility] DEPARTMENT OF | [address] | [place] [address] | | | PATHOLOGY | [address] | | | + + + + + | [facility] | [address] | [place] [address] | | | PATHOLOGY | [address] [...] | | | | | performed by [facility] | | | | | | AOMi. | | | | + + + + + + + + | Specimen | + + | | + + + + + + + | Performing | Address | City/State/Zipcode | Phone Number | | Organization | | | | + + + + + | [facility] | [address] | [place], [place] | | | [facility] | | [address] | | + + + + + [...] | + + + + + | [facility] | [address] [facility] [facility] | [place] [address] | | | PATHOLOGY | [address] | | | + + + + + | [facility] | [address] [facility] [facility] | [place] [address] | | | PATHOLOGY | [address] [...] + + + + + | [facility] DEPARTMENT OF | [address] | [place] [address] | | | PATHOLOGY | [address] | | | + + + + + | [facility] DEPARTMENT OF | [address] | [place] [address] | | | PATHOLOGY | [address] [...] [facility] | [address] | [place], [place] | | | [facility] | | [address] | | + + + + + [...] | | | | | performed at [facility] | | | | | | [facility] | | | | | | Laboratory. | | | | + + + + + + + + | Specimen | + + | | + + + + + + + | Performing | Address | City/State/Zipcode | Phone Number | | Organization | | | | + + + + + | [facility] | [address] | [place] [address] | | | LAB-MICRO | | | [...] DEPARTMENT OF | [address] | [place] [address] | | | PATHOLOGY | [address] | | | + + + + + | [facility] DEPARTMENT OF | [address] | [place] [address] | | | PATHOLOGY | [address] [...] + + + + + | [facility] DEPARTMENT OF | [address] | [place] [address] | | | PATHOLOGY | [address] | | | + + + + + | [facility] DEPARTMENT OF | [address] | [place] [address] | | | PATHOLOGY | [address] [...] DEPARTMENT OF | [address] | [place] [address] | | | PATHOLOGY | [address] | | | + + + + + | [facility] DEPARTMENT OF | [address] | [place] [address] | | | PATHOLOGY | [address] [...] + + + + + | [facility] DEPARTMENT OF | [address] | [place] [address] | | | PATHOLOGY | [address] | | | + + + + + | [facility] DEPARTMENT OF | [address] | [place] [address] | | | PATHOLOGY | [address] [...] | + + + + + | [facility] | [address] [facility] | [place] [address] | | | PATHOLOGY | [address] | | | + + + + + | [facility] | [address] [facility] [facility] | [place] [address] | | | PATHOLOGY | [address] [...] + + + + + | [facility] DEPARTMENT OF | [address] [facility] [facility] | [place] [address] | | | PATHOLOGY | [address] | | | + + + + + | [facility] DEPARTMENT OF | [address] [facility] | [place] [address] | | | PATHOLOGY | [address] [...] + + | [facility] DEPARTMENT OF | [address] | [place] [address] | | | PATHOLOGY | [address] | | | + + + + + | [facility] DEPARTMENT OF | [address] | [place] [address] | | | PATHOLOGY | [address] [...] + + + + + | [facility] DEPARTMENT OF | [address] | [place] [address] | | | PATHOLOGY | [address] | | | + + + + + | [facility] DEPARTMENT OF | [address] | [place] [address] | | | PATHOLOGY | [address] | | | + + + + + PHOSPHORUS, PLASMA (06/28/2006 7:40 PM PDT) + +---------+ + + + | Component | Value | Ref Range | Performed | Pathologist | | | | | At | Signature | + +---------+ + + + | PHOSPHORUS, | 1.2 (L) | 2.4 - 4.7 mg/dL | [facility] | | | PLASMA | | [...] + + + + + | [facility] DEPARTMENT OF | [address] [facility] [facility] | [place] [address] | | | PATHOLOGY | [address] | | | + + + + + | [facility] DEPARTMENT OF | [address] [facility] [facility] | [place] [address] | | | PATHOLOGY | [address] [...] + + + + + | [facility] DEPARTMENT OF | [address] | [place] [address] | | | PATHOLOGY | [address] | | | + + + + + | [facility] DEPARTMENT OF | [address] | [place] [address] | | | PATHOLOGY | [address] [...] | + + + + + | [facility] | [address] [facility] [facility] | [place] [address] | | | PATHOLOGY | [address] | | | + + + + + | [facility] DEPARTMENT OF | [address] [facility] [facility] | [place] [address] | | | PATHOLOGY | [address] | | | + + + + + MAGNESIUM, PLASMA (06/28/2006 6:20 AM PDT) + +-------+ + + + | Component | Value | Ref Range | Performed | Pathologist | | | | | At | Signature | + +-------+ + + + | MAGNESIUM,P | 2.1 | 1.8 - 2.5 mg/dL | [facility] | | | LASMA | | | [...] + + + + + | [facility] DEPARTMENT OF | [address] | [place] [address] | | | PATHOLOGY | [address] | | | + + + + + | [facility] DEPARTMENT OF | [address] | [place] [address] | | | PATHOLOGY | [address] [...] | + + + + + | [facility] | [address] [facility] [facility] | [place] [address] | | | PATHOLOGY | [address] | | | + + + + + | [facility] | [address] [facility] [facility] | [place] [address] | | | PATHOLOGY | [address] [...] DEPARTMENT OF | [address] | [place] [address] | | | PATHOLOGY | [address] | | | + + + + + | [facility] DEPARTMENT OF | [address] [facility] | [place] [address] | | | PATHOLOGY | [address] [...] DEPARTMENT OF | [address] | [place] [address] | | | PATHOLOGY | [address] | | | + + + + + | [facility] DEPARTMENT OF | [address] | [place] [address] | | | PATHOLOGY | [address] | | | + + + + + PROTHROMBIN TIME (06/28/2006 6:20 AM PDT) + + + + + + | Component | Value | Ref Range | Performed | Pathologist | | | | | At | Signature | + + + + + + | INR | 1.10Comment: | 0.90 - 1.20 INR | [facility] | | | | PT INR | [...] | + + + + + | [facility] | [address] [facility] [address] | [place] [address] | | | PATHOLOGY | [address] | | | + + + + + | [facility] | [facility] [facility] | [place] [address] | | | PATHOLOGY | [address] [...] | + + + + + | [facility] | [address] [facility] [facility] | [place] [address] | | | PATHOLOGY | [address] | | | + + + + + | [facility] | [address] [facility] [facility] | [place] [address] | | | PATHOLOGY | [address] | | | + + + + + MAGNESIUM, PLASMA (06/27/2006 5:40 PM PDT) + +-------+ + + + | Component | Value | Ref Range | Performed | Pathologist | | | | | At | Signature | + +-------+ + + + | MAGNESIUM,P | 1.8 | 1.8 - 2.5 mg/dL | [facility] | | | LASMA | | | [...] + + + + + | [facility] DEPARTMENT OF | [address] [facility] [facility] | [place] [address] | | | PATHOLOGY | [address] | | | + + + + + | [facility] DEPARTMENT OF | [address] [facility] | [place] [address] | | | PATHOLOGY | [address] [...] | + + + + + | [facility] | [address] [facility] [facility] | [place] [address] | | | PATHOLOGY | [address] | | | + + + + + | [facility] | [address] [facility] [facility] | [place] [address] | | | PATHOLOGY | [address] [...] | + + + + + | [facility] | [address] | [place] [address] | | | PATHOLOGY | [address] | | | + + + + + | [facility] | [address] | [place] [address] | | | PATHOLOGY | [address] [...] + + + | Test performed at [facility] | | + + + + + + + + | Performing | Address | City/State/Zipcode | Phone Number | | Organization | | | | + + + + + | [facility] | [address] | [place] [address] | | | LABORATORY | | | [...] + + + | Test performed at [facility] | | + + + + + + + + | Performing | Address | City/State/Zipcode | Phone Number | | Organization | | | | + + + + + | [facility] | [address] | [place] [address] | | | LABORATORY | | | | + + + + + IOD-ORGANIC BASE CONFIRM (06/27/2006 11:55 AM PDT) + + | Specimen | + + | | + + + + + | Narrative | Performed At | + + + | Test performed at [facility] | [facility] | | | DEPARTMENT OF | | | PATHOLOGY | + + + + + + + + | Performing | Address | City/State/Zipcode | Phone Number | | Organization | | | | + + + + + | [facility] DEPARTMENT OF | [facility] | [place] [address] | | | PATHOLOGY | [address] | | | + + + + + | [facility] DEPARTMENT OF | [facility] | [place] [address] | | | PATHOLOGY | [address] [...] at | | | | | | [facility] | | | | | | [facility]. | | | | + + + + + + + + | Specimen | + + | | + + + + + + + | Performing | Address | City/State/Zipcode | Phone Number | | Organization | | | | + + + + + | [facility] | [address] | [place] [address] | | | LAB-MICRO | | | [...] + + + | [facility] | [address] | [place] [address] | | | LABORATORY | | | [...] + + + + + | [facility] DEPARTMENT OF | [address] [facility] [facility] [address] | [place] [address] | | | PATHOLOGY | [address] | | | + + + + + | [facility] DEPARTMENT OF | [address] [facility] [facility] | [facility] [place] [address] | | | PATHOLOGY | [address] [...] + + + + + | [facility] DEPARTMENT OF | [address] | [place] [address] | | | PATHOLOGY | [address] | | | + + + + + | [facility] DEPARTMENT OF | [address] | [place] [address] | | | PATHOLOGY | [address] [...] | + + + + + | [facility] | [address] [facility] | [place] [address] | | | PATHOLOGY | [address] | | | + + + + + | [facility] | [address] [facility] | [place] [address] | | | PATHOLOGY | [address] [...] DEPARTMENT OF | [address] | [place] [address] | | | PATHOLOGY | [address] | | | + + + + + | [facility] DEPARTMENT OF | [address] | [place] [address] | | | PATHOLOGY | [address] [...] DEPARTMENT OF | [address] | [place] [address] | | | PATHOLOGY | [address] | | | + + + + + | [facility] DEPARTMENT OF | [address] [facility] | [place] [address] | | | PATHOLOGY | [address] [...] | + + + + + | [facility] | [address] [facility] | [place] [address] | | | PATHOLOGY | [address] | | | + + + + + | [facility] | [address] [facility] | [place] [address] | | | PATHOLOGY | [address] [...] + + + + + | [facility] DEPARTMENT OF | [address] | [place] [address] | | | PATHOLOGY | [address] | | | + + + + + | [facility] DEPARTMENT OF | [address] | [place] [address] | | | PATHOLOGY | [address] [...] | | | | | performed at [facility] | | | | | | [facility] | | | | | | Laboratory. | | | | + + + + + + + + | Specimen | + + | | + + + + + + + | Performing | Address | City/State/Zipcode | Phone Number | | Organization | | | | + + + + + | [facility] | [address] | [place] [address] | | | LAB-MICRO | | | [...] at | | | | | | [facility] | | | | | | [facility]. | | | | + + + + + + + + | Specimen | + + | | + + + + + + + | Performing | Address | City/State/Zipcode | Phone Number | | Organization | | | | + + + + + | [facility] | [address] | [place] [address] | | | LAB-MICRO | | | [...] | + + + + + | [facility] | [address] [facility] | [place] [address] | | | PATHOLOGY | [address] | | | + + + + + | [facility] | [address] [facility] | [place] [address] | | | PATHOLOGY | [address] [...] + | [facility] | [address] | [place] [address] | | | LABORATORY | | | [...] + + + | [facility] | [address] | [place] [address] | | | LABORATORY | | | [...] | | AB | Test performed by [facility] | | | | | | [facility] | | | | | | Laboratories. | | | | + + + + + + + + | Specimen | + + | | + + + + + + + | Performing | Address | City/State/Zipcode | Phone Number | | Organization | | | | + + + + + | [facility] | [address] | [place] [address] | | | LABORATORY | | | [...] | | | | | performed at [facility] | | | | | | [facility] | | | | | | Laboratory. | | | | + + + + + + + + | Specimen | + + | | + + + + + + + | Performing | Address | City/State/Zipcode | Phone Number | | Organization | | | | + + + + + | [facility] | [address] | [place] [address] | | | LAB-MICRO | | | [...] + + + + + | [facility] DEPARTMENT OF | [address] [facility] | [place] [address] | | | PATHOLOGY | [address] | | | + + + + + | [facility] DEPARTMENT OF | [address] [facility] | [place] [address] | | | PATHOLOGY | [address] [...] | + + + + + | [facility] | [address] [facility] | [place] [address] | | | PATHOLOGY | [address] | | | + + + + + | [facility] | [address] [facility] | [place] [address] | | | PATHOLOGY | [address] [...] + + + + + | [facility] DEPARTMENT OF | [address] | [place] [address] | | | PATHOLOGY | [address] | | | + + + + + | [facility] DEPARTMENT OF | [address] | [place] [address] | | | PATHOLOGY | [address] [...] | + + + + + | [facility] | [address] | [place] [address] | | | PATHOLOGY | [address] | | | + + + + + | [facility] | [facility] | [place] [address] | | | PATHOLOGY | [address] [...] + + + + + | [facility] DEPARTMENT OF | [address] [facility] | [place] [address] | | | PATHOLOGY | [address] | | | + + + + + | [facility] DEPARTMENT OF | [address] [facility] | [place] [address] | | | PATHOLOGY | [address] [...] + + + + + | [facility] DEPARTMENT OF | [address] | [place] [address] | | | PATHOLOGY | [address] | | | + + + + + | [facility] DEPARTMENT OF | [address] | [place] [address] | | | PATHOLOGY | [address] [...] + + + + + | [facility] DEPARTMENT OF | [address] | [place] [address] | | | PATHOLOGY | [address] | | | + + + + + | [facility] DEPARTMENT OF | [address] | [place] [address] | | | PATHOLOGY | [address] [...] DEPARTMENT OF | [address] | [place], [facility] | | | PATHOLOGY | [address] | | | + + + + + | [facility] | [address] | [place] [address] | | | PATHOLOGY | [address] [...] + + + + + | [facility] DEPARTMENT OF | [address] | [place] [address] | | | PATHOLOGY | [address] | | | + + + + + | [facility] DEPARTMENT OF | [address] | [place] [address] | | | PATHOLOGY | [address] [...] | | | | | the [facility] LabManual: | | | | | | [email or web address] | | | | | [email or web address] [...] + + + + + | [facility] DEPARTMENT OF | [facility] | [place] [address] | | | PATHOLOGY | [address] | | | + + + + + | [facility] DEPARTMENT OF | [facility] | [place] [address] | | | PATHOLOGY | [address] [...] DEPARTMENT OF | [address] | [place] [address] | | | PATHOLOGY | [address] | | | + + + + + | [facility] DEPARTMENT OF | [address] | [place] [address] | | | PATHOLOGY | [address] [...] DEPARTMENT OF | [address] | [place] [address] | | | PATHOLOGY | [address] | | | + + + + + | [facility] DEPARTMENT | [address] | [place] [address] | | | PATHOLOGY | [address] [...] + + + + + | [facility] DEPARTMENT | [address] [facility] | [place] [address] | | | PATHOLOGY | [address] | | | + + + + + | [facility] | [address] [facility] | [place] [address] | | | PATHOLOGY | [address] [...] | + + + + + | [facility] | [address] [facility] [address] | [place] [address] | | | PATHOLOGY | [address] | | | + + + + + | [facility] | [address] [facility] [facility] [address] | [place] [address] | | | PATHOLOGY | [address] [...] + + + + + | [facility] | [address] | [place] [address] | | | PATHOLOGY | [address] | | | + + + + + | [facility] | [address] | [place] [address] | | | PATHOLOGY | [address] | | | + + + + + ALCOHOL SCRN, SERUM (06/26/2006 4:15 PM PDT) + + + + + + | Component | Value | Ref Range | Performed | Pathologist | | | | | At | Signature | + + + + + + | ETHANOL | Negative | mg/dL | [facility] | | | (ALCOHOL) | | | [...] + + + + + | [facility] | [address] | [place] [address] | | | PATHOLOGY | [address] | | | + + + + + | [facility] | [address] [place] [address] [address]RAV[address] | [place] [address] | | | PATHOLOGY | [address] [...] | + + + + + | [facility] | [address] | [place] [address] | | | PATHOLOGY | [address] | | | + + + + + | [facility] | [address] | [place] [address] | | | PATHOLOGY | [address] | | | + + + + + MAGNESIUM, PLASMA (06/26/2006 4:15 PM PDT) + +-------+ + + + | Component | Value | Ref Range | Performed | Pathologist | | | | | At | Signature | + +-------+ + + + | MAGNESIUM,P | 2.3 | 1.8 - 2.5 mg/dL | [facility] | | | [place] | | | [...] + + + + + | [facility] | [address] | [place] [address] | | | PATHOLOGY | [address] | | | + + + + + | [facility] | [address] | [place] [address] | | | PATHOLOGY | [address] [...] | + + + + + | [facility] | [address] [facility] | [place] [address] | | | PATHOLOGY | [address] | | | + + + + + | [facility] | [address] [facility] [facility] | [place] [address] | | | PATHOLOGY | [address] [...] + + + + + | [facility] | [address] [facility] | [place] [address] | | | PATHOLOGY | [address] | | | + + + + + | [facility] | [address] [facility] | [place] [address] | | | PATHOLOGY | [address] [...] + + | [facility] DEPARTMENT OF | [address] | [place] [address] | | | PATHOLOGY | [address] | | | + + + + + | [facility] DEPARTMENT OF | [address] | [place] [address] | | | PATHOLOGY | [address] [...] + + + + + | [facility] | [address] | [place] [address] | | | PATHOLOGY | [address] | | | + + + + + | [facility] DEPARTMENT OF | [address] | [place] [address] | | | PATHOLOGY | JORGE LUIS JIM | | | + + + + + documented in this encounter Visit Diagnoses Not on filedocumented in this encounter"
--- OUTSIDE RECORDS SUMMARY | ~2019-08-07 | XMS | Encounter Summary ---
Demographics + + + | Address | [address] | | | [place] [address] | + + + | Home Phone [...] Providers + +------+ + | Care Advertising Sales Executive Name | Role | Phone [...] | | | stenosis | B | [address] | | | | | | [place], [place] | Phone: | | | | | | [address] | [phone] | | | | | | Phone: | Fax: | | | | | | [phone] | [phone] | | | | | | Fax: | | | | | | | [phone] | | + +--------+ + + + + Encounter Details +--------+---------+ + + + | Date | Type | Department | Care Team | Description | +--------+---------+ + + + | 06/18/ | Office | [facility] | Denys Sibley, | SACROILIITIS | | 2018 | Visit | 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 Talk to your char conveyor tender cellar regarding the use of this medicine in children. While this drug m ay be prescribed for children as young as newborns for selected conditions, precautions do a pply. What side effects may I notice from receiving this medicine? Side effects that you should report to your doctor or health day care aide as soon as p ossible: allergic reactions like skin rash, itching or hives, swelling of the face, lips, or tong ue breathing problems fast, irregular heartbeat high blood pressure pain that was controlled by narcotic pain medicine seizures Side effects that usually do not require medical attention (report to your doctor or health day care aide if they continue or are bothersome): anxious [...] of your doctor or health day care aide and local hospital ready. You may need to have additional doses of this medicine. Each nasal spray contains a single dose. Some emergencies may require additional doses. After use, bring the treated person to the nearest hospital or call 911. Make sure the [facility] health day care aide knows that the person has received an [...] to physical therapy, mass age therapy, acupuncture, human services care specialist, along with recommended psychological counseling , either privately, or in group sessions offered by private care individuals, community serv ices, or latter-day organizations. Appropriate referrals were made at patient [...] to office in 4 weeks, [facility] was consulted and appears appropriate, Urine Toxicology [...] dysfunction are noted in men and women. [facility] men will suffer erectile dysfunction with these [...] | | | | | [place] [address] | | | | | | [phone] | | | | | | | | +--------+---------+ + + + | 08/16/ | Office | Pain Medicine | Denys Sibley, | | | 2018 | Visit | | [address] | | | | | | [place] | | | | | | [address] | | | | | | | | +--------+---------+ + + + + +--------+ + + | Name | Priori | Associated Diagnoses | Order Schedule | | | ty | | | + +--------+ + + | Drugs of Abuse, Panel, Pain | Routin | assisted current | Expected: | | Management 2, [...] pain Backache, unspecified | + + | assisted current use of opiate analgesic Encounter for long-term (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 of | | other medications | + + documented in this encounter
--- OUTSIDE RECORDS SUMMARY | ~2019-08-07 | XMS | Encounter Summary ---
Demographics + + + | Address | [address] | | | [place] [address] | + + + | Home Phone [...] Team Providers + +------+ + | Care Middleware Systems Architect Name | Role | Phone | [...] + + | 07/20/ | Telephone | [facility] | Maykel Hutchins MD | Procedure (Question) | | 2019 | | [facility] | [address] | | | | | ORTHOPEDIC SPINE | [place] | | | | | [address] [place] | [place] [address] | | | | | [place] | [phone] | | | | | [address] | | | | | | [phone] | | | +--------+ + + + [...] | | | | | [place] [address] | | | | | | [phone] | | | | | | | | +--------+---------+ + + + | 08/16/ | Office | Pain Medicine | Denys Sibley, | | | 2018 | Visit | | [address] | | | | | | [address] [place] | | | | | | [address] | | | | | | | | +--------+---------+ + + + documented as of this encounter Visit Diagnoses Not on filedocumented in this encounter"
--- OUTSIDE RECORDS SUMMARY | ~2019-08-07 | XMS | Encounter Summary ---
Demographics + + + | Address | [address] | | | [place] [address] | + + + | Home Phone | | + + + | Preferred Language | Unknown | + + + | Marital Status | Single | + + + | Adventism Affiliation | NON | + + + [...] Team Providers + +------+ + | Care Campground Cleaning Attendant Name | Role | Phone [...] | | 2012 | | [facility] | [address] | | | | | [address] | Juliana Schulte [place], | | | | | [address] | [place] [address] | | | | | Aravind Hannon | [phone] | | | | | [place], [place] | | | | | | [address] | | | | | | [phone] | | | +--------+ + + + [...]
--- OUTSIDE RECORDS SUMMARY | ~2019-08-07 | XMS | Encounter Summary ---
Demographics + + + | Address | [address] | | | [place] [address] | + + + | Home Phone [...] + +------+ + | Care Sports Book Writer Name | Role | Phone | [...]
--- OUTSIDE RECORDS SUMMARY | ~2019-08-07 | XMS | Encounter Summary ---
Demographics + + + | Address | [address] | | | [place] [address] | + + + | Home Phone [...] Providers + +------+ + | Care Color Maker Name | Role | Phone | + +------+ + | Romy De La Paz MD | PCP | | + +------+ + Encounter Details +--------+ + + + + | Date | Type | Department | Care Team | Description | +--------+ + + + + | 09/18/ | Clinical | [facility] | | Radiculopathy of | | 2019 | Support | NEUROSURGERY [address] | | thoracolumbar | | | | [address] | | region; | | | | [place], [place] | | Postlaminectomy | | | | [address] | | syndrome, thoracic | | | | [phone] | | region | +--------+ + + [...] concerns feel free to call us at [phone]. documented in this encounter Progress Notes Niki [...] UTI's as well. Patient was sent to [facility] for their scheduled pre-admit appointment, anesthesia consult, lab draw, EKG and chest xray. Orders entered per Dr. Hutchins's preference and hospital guidelines. Patient was given an appointment reminder for their first post-op visit on 08/16/19 @ 5659 and instructed to call in the interim [...] | | | | | [place] [address] | | | | | | [phone] | | | | | | | | +--------+---------+ + + + | 08/16/ | Office | Pain Medicine | Denys Sibley, | | | 2018 | Visit | | [address] | | | | | | [place] | | | | | | [address] | | | | | | | | +--------+---------+ + + + documented as of this encounter Visit Diagnoses + + | Diagnosis | + + | Radiculopathy of thoracolumbar region Thoracic or lumbosacral neuritis or | | radiculitis, unspecified | + + | Postlaminectomy syndrome, thoracic region | + + documented in this encounter
--- OUTSIDE RECORDS SUMMARY | ~2019-08-07 | XMS | Encounter Summary ---
Demographics + + + | Address | [address] | | | [place] [address] | + + + | Home Phone [...] Team Providers + +------+ + | Care Housekeeping Room Inspector Name | Role | Phone | [...] + + | 07/30/ | Telephone | [facility] | Maykel Hutchins MD | Paperwork (Good | | 2019 | | NEUROSCIENCE CENTER | [address] | [facility] | | | | ORTHOPEDIC SPINE | [place], | Healthcare Orders) | | | | [address] [place] | [place] [address] | | | | | [place] | [phone] | | | | | [address] | | | | | | [phone] | | | +--------+ + + + [...] | | | | | [place] [address] | | | | | | [phone] | | | | | | | | +--------+---------+ + + + | 08/16/ | Office | Pain Medicine | Denys Sibley, | | | 2018 | Visit | | [address] | | | | | | [place] | | | | | | [address] | | | | | | | | +--------+---------+ + + + documented as of this encounter Visit Diagnoses Not on filedocumented in this encounter"
--- OUTSIDE RECORDS SUMMARY | ~2019-08-07 | XMS | Encounter Summary ---
Demographics + + + | Address | [address] | | | [place] [address] | + + + | Home Phone [...] Providers + +------+ + | Care Sql Consultant Name | Role | Phone | + +------+ + | Romy De La Paz MD | PCP | | + +------+ + Encounter Details +--------+ + + + + | Date | Type | Department | Care Team | Description | +--------+ + + + + | 09// | Hospital | [facility] | Maykel Hutchins MD | | | 2019 | Encounter | [facility] | [address] | | | | | [address] | [place], | | | | | [place], [place] | [place] [address] | | | | | [address] | [phone] | | | | | [phone] | | | +--------+ + + + [...] Decreased | | | | | | jail current | Responsiveness (May | | | [...] | | | | | [place] [address] | | | | | | [phone] | | | | | | | | +--------+---------+ + + + | 08/16/ | Office | Pain Medicine | Denys Sibley, | | | 2018 | Visit | | [address] | | | | | | [address] [place] | | | | | | [address] | | | | | | | [...]
--- OUTSIDE RECORDS SUMMARY | ~2019-08-07 | XMS | Encounter Summary ---
Demographics + + + | Address | [address] | | | [place] [address] | + + + | Home Phone [...] Team Providers + +------+ + | Care Reserve Officer Name | Role | Phone | [...] | | | stenosis | B | [address] | | | | | | [place], [place] | Phone: | | | | | | [address] | [phone] | | | | | | Phone: | Fax: | | | | | | [phone] | [phone] | | | | | | Fax: | | | | | | | [phone] | | + +--------+ + + + + Encounter Details +--------+---------+ + + + | Date | Type | Department | Care Team | Description | +--------+---------+ + + + | 07/18/ | Office | [facility] | Denys Sibley, | Lumbar region | | 2018 | Visit | [facility] | DO [address] | somatic dysfunction | | | | [address]OLOROLOGY [address] [place] | (Primary Dx); | | | | [address] | [address] | Intractable back | | | | [place] | | pain; Encounter for | | | | [address] | | long-term use of | | | | [phone] | | opiate analgesic; | | | [...] Diagnosis Date Acute renal failure ([facility]) April 2013 Anesthesia hallucinated after bladder repair Arthralgia Asthma Asthma Cancer ([facility]) 2004 breast Cerebrovascular accident (CVA) ([facility]) no per pt Chronic back pain Chronic back pain Concussion 07/2015 Preceeded by seizure Constipation COPD (chronic obstructive pulmonary disease) ([facility]) Degenerative disc disease Depression Depression Diabetes mellitus ([facility]) Diabetes mellitus, type 2 ([facility]) diet controlled Diarrhea [...] of lumbar spine 04/17/2014 Seizure ([facility]) one due to meds, two due [...] to physical therapy, mass age therapy, acupuncture, transitions rn care coordinator, along with recommended psychological counseling , either privately, or in group sessions offered by private care individuals, community serv ices, or sabianist organizations. Appropriate referrals were made at patient [...] Will return to office in 4 weeks, [facility] was consulted and appears appropriate, [...] and complications with the passage of time. custodial use is also associated with depressions, and [...] [address] | | | | | | [facility] | | | | | | [place] [address] | | | | | | [phone] | | | | | | | | +--------+---------+ + + + | 08/16/ | Office | Pain Medicine | Denys Sibley, | | | 2018 | Visit | | DO [address] | | | | | | [address] [place] | | | | | | [address] | | | | | | | [...]
--- OUTSIDE RECORDS SUMMARY | ~2019-08-07 | XMS | Encounter Summary ---
Demographics + + + | Address | [address] | | | [place] [address] | + + + | Home Phone [...] Providers + +------+ + | Care Appeals Referee Name | Role | Phone | + [...] | | | | | [place]te [place], | | | | | | [place] [address] | | | +--------+ + + + [...]
--- OUTSIDE RECORDS SUMMARY | ~2019-08-07 | XMS | Encounter Summary ---
Demographics + + + | Address | [address] | | | [place] [address] | + + + | Home Phone [...] Author | [facility] (Historical as of | | | 06-16-19) | + + + | Organization | [facility] (Historical as of | [...] Providers + +------+ + | Care Food Cart Attendant Name | Role | Phone | + +------+ + | Romy De La Paz MD | PCP | | + +------+ + Encounter Details +--------+ + + + + | Date | Type | Department | Care Team | Description | +--------+ + + + + | 08/03/ | Hospital | [facility] | Maykel Hutchins MD | Postlaminectomy | | 2019 | Encounter | [facility] | [address] | syndrome, thoracic | | | | Operating Room [address] | [place] [address] | region; | | | | [address] | [phone] | Radiculopathy of | | | | [place] [address] | | thoracolumbar | | | | [phone] | | region; | | | | [...] [address] | | | | | | [place] [address] | | | | | | [phone] | | | | | | | [...]
[~2019-08-07 22:08] MED LIST changes: +KEFLEX500 MG PO
--- OUTSIDE RECORDS SUMMARY | 2019-08-07 22:12 | XMS ---
PreManage Notification: RONALD FLORIAN Security Clerk Rating Events No recent Security Events currently on file CRITERIA MET - Group Notification - [facility] Guidelines - PDMP CARE PROVIDERS EVELIO AIKEN Physician 05/23/2018-Current PHONE: Unknown Shlomo De La Paz Internal Medicine: Pulmonary Disease 02/06/2019-Current PHONE: Unknown Yoon [facility] Current PHONE: [phone] Alan Cesar MD PHONE: Unknown Mateus has no Care Guidelines for this patient. Care History Medical/Surgical 02/06/2019 [facility] - Patient is currently established with [facility]. If patient is seen in the ED during business hours. Please contact CHWs at [facility]. Care Recommendation: This patient has had 5 or more Emergency Department visits in the last 12 months.\T\nbsp; Patient requires education on the scope and purpose of the ED as an acute care provider not a Primary Care Provider and should not be utilized for chronic conditions.\T\nbsp; These are guidelines and the provider should exercise clinical judgment when providing care. 06/28/2018 [facility] HISTORY:\T\nbsp; DM/ COPD, RESTLESS LEGS/ DEPRESSION/ TARDIVE DYSKINESIA/ CHRONIC PAIN/ MULTIPLE OVERDOSE ATTEMPTS/ SCOLIOSIS/ DEGEN DISC DISEASE/ BONE SPUR 03/24/2018 [facility] - PATIENT HAS A PAIN SPECIALIST DR CRUZ IN [place], [place] CONTACT NUMBER . - CHW is [...] ED please contact Community Health WorkerVirginie at [phone]. These are guidelines and the provider should exercise clinical judgment when providing care. E.D. VISIT COUNT (12 MO.) 1 Nicole Santos [facility] TOTAL 5 NOTE: Visits indicate total known visits. 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 - Type 2 diabetes mellitus without complications - Bipolar disorder, unspecified - MCFP (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 of opiate analgesic - Major depressive disorder, single episode, unspecified 02/05/2019 05:23 [facility] [place] TYPE: Emergency COMPLAINT: - ABD PAIN DIAGNOSES: - Allergy status to other drugs, medicaments and biological substances status - Bipolar disorder, unspecified - Chronic obstructive pulmonary disease, unspecified - Type 2 diabetes mellitus without complications - Dysuria - 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 - Urinary tract infection, site not specified 10/14/2018 12:13 [facility] [place] TYPE: Emergency COMPLAINT: - FALL/RIB PAIN DIAGNOSES: - Chronic obstructive pulmonary disease, unspecified - Type 2 diabetes mellitus without complications - Striking against or struck by other objects, initial encounter - Other chronic pain - Bipolar disorder, unspecified - 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
== END 2019-08-07 22:47 | disposition home or self-care (01) ==
LOC: ED 22:08
DX: Z48.01 Encounter for change or removal of surgical wound dressing (principal); E11.9 Type 2 diabetes mellitus without complications; Z88.8 Allergy status to other drugs, medicaments and biological substances; Z79.899 Other long term (current) 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
CPT/HCPCS: 99283

== ENCOUNTER 2019-08-09 11:05 | Emergency (ER) | payer MEDICARE, OTHER ==
[~2019-08-09] VITALS: Ht 154.9 cm; Wt 50.4 kg
--- OUTSIDE RECORDS SUMMARY | ~2019-08-09 | XMS | Encounter Summary ---
Demographics + + + | Address | [address] | | | [place] [address] | + + + | Home Phone | | + + + | Preferred Language | Unknown | + + + | Marital Status | | + + + | Alevism Affiliation | 1013 | + + + | Race | Unknown | + + + | Ethnic Group | Unknown | + + + Author + + + | Author | [facility] | | | and Priteshana | + + + | Organization | [facility] | | | and [...] Team Providers + +------+ + | Care Equipment Maintenance Technician Name | Role | Phone | + +------+ + | Romy De La Paz MD | PCP | | + +------+ + Encounter Details +--------+ + + + + | Date | Type | Department | Care Team | Description | +--------+ + + + + | 09// | Hospital | [facility] | Maykel Hutchins MD | | | 2019 | Encounter | [facility] | [address] | | | | | [address] | [place], | | | | | [place], [place] | [place] [address] | | | | | [address] | [phone] | | | | | [phone] | | | +--------+ + + + [...] + | Yes | | | Alcoholic Drinks/day: not often..twice per | | | | | [...] + + documented as of this encounter Medications at Time of Discharge [...] affected | 118 mL | 0 | // | | | (HIBICLENS) 4 % | [...] 72 | patch | | 19 | | | mcg/hrIndications: | hours. | | [...] hours | tablet | | 19 | | | ophen (NORCO) 10-325 | as needed for Pain. | | | | | | mg per tablet | | | | | | + + + +---------+ + + | | Take 1 tablet by | 120 | 0 | 07/18/20 | | | HYDROcodone-acetamin | mouth every 6 (six) | tablet | | 19 | | | ophen (NORCO) | hours as [...] times a | | | 19 | 0 | | (EMLA) | day | | [...] 4 (four) times | | | | | | [...] Nasal | 2 each | 1 | // | | | 4 mg/nasal | route as needed for | | | 19 | | | sprayIndications: | Decreased | | | | | | custodial current | Responsiveness (May | | | [...] Description | +--------+---------+ + + + | 08/16/ | Office | Orthopedic Surgery | Gabi Guzman | | | 2018 | Visit | | [address] | | | | | [address] | | | | | | [place] [address] | | | | | | [phone] | | | | | | | | +--------+---------+ + + + | 08/16/ | Office | Pain Medicine | Denys Sibley, | | | 2018 | Visit | | [address] | | | | | | [address] [place] | | | | | | [address] | | | | | | | | +--------+---------+ + + + documented as of this encounter Procedures + +--------+ + + + | Procedure Name | Priori | Date/Time | Associated Diagnosis | Comments | | | ty | | | | + +--------+ + + + | XR CHEST PA AND | Routin | 07/18/2019 | | Results for this | | LATERAL | e | 15:24 PDT | | procedure are in the | | | | | | results section. | + +--------+ + + + documented in this encounter Visit Diagnoses Not on filedocumented in this encounter"
--- OUTSIDE RECORDS SUMMARY | ~2019-08-09 | XMS | Encounter Summary ---
Demographics + + + | Address | [address] | | | [place] [address] | + + + | Home Phone | | + + + | Preferred Language | Unknown | + + + | Marital Status | | + + + | Buddhist Affiliation | 1013 | + + + | Race | Unknown | + + + | Ethnic Group | Unknown | + + + Author + + + | Author | [facility] | | | and Priteshana | + + + | Organization | [facility] | | [...] Team Providers + +------+ + | Care Fats And Oils Loader Name | Role | Phone | + +------+ + | Romy De La Paz MD | PCP | | + +------+ + Reason for Visit + + + | Reason | Comments | + + + | Procedure | Question | + + + Encounter Details +--------+ + + + + | Date | Type | Department | Care Team | Description | +--------+ + + + + | 07/20/ | Telephone | [facility] | Maykel Hutchins MD | Procedure (Question) | | 2019 | | NEUROSCIENCE CENTER | [address] | | | | | ORTHOPEDIC SPINE | [place] | | | | | [address] [place] | [place] [address] | | | | | [place] | [phone] | | | | | [address] | | | | | | [phone] | | | +--------+ + + + [...] [address] | | | | | | [place] [address] | | | | | | [phone] | | | | | | | | +--------+---------+ + + + | 08/16/ | Office | Pain Medicine | Denys Sibley, | | | 2018 | Visit | | [address] | | | | | | [address] [place] | | | | | | [address] | | | | | | | | +--------+---------+ + + + documented as of this encounter Visit Diagnoses Not on filedocumented in this encounter"
--- OUTSIDE RECORDS SUMMARY | ~2019-08-09 | XMS | Encounter Summary ---
Demographics + + + | Address | [address] | | | [place] [address] | + + + | Home Phone [...] Providers + +------+ + | Care Director Of Nurses Registry Name | Role | Phone | + +------+ + | Romy De La Paz MD | PCP | | + +------+ + Reason for Visit + + + | Reason | Comments | + + + | Imaging Only | | + + + Encounter Details +--------+ + + + + | Date | Type | Department | Care Team | Description | +--------+ + + + + | 07/19/ | Telephone | [facility] | Gabi Guzman | Imaging Only | | 2019 | | NEUROSCIENCE CENTER | [address] | | | | | ORTHOPEDIC SPINE | [address] | | | | | [address] | [place] [address] | | | | | [place], [place] | [phone] | | | | | [address] | | | | | | [phone] | | | +--------+ + + + [...] | | | | | [place] [address] | | | | | | [phone] | | | | | | | | +--------+---------+ + + + | 08/16/ | Office | Pain Medicine | Denys Sibley, | | | 2018 | Visit | | [address] | | | | | | [place] | | | | | | [address] | | | | | | | | +--------+---------+ + + + documented as of this encounter Visit Diagnoses Not on filedocumented in this encounter"
--- OUTSIDE RECORDS SUMMARY | ~2019-08-09 | XMS | Encounter Summary ---
Demographics + + + | Address | [address] | | | [place] [address] | + + + | Home Phone [...] Providers + +------+ + | Care Business Process Specialist Name | Role | Phone | [...] + + + + + + | Pending | Specialty | Home Health | Diagnoses | [facility] | | | Review | Services | Services | Lumbar back | Care Fl 3 | | | | Required | | pain | [address] | | | | | | Chronic | [address] | | | | | | bilateral | [place], [place] | | | | | | low back | [address] | | | | | | pain with | Phone: | | | | | | right-sided | [phone] | | | | | | sciatica | Fax: | | | | | | | [phone] | | + + + + + + + Reason for Visit Auth/Cert +--------+--------+ + [...] | | | | | | | TX SURG | | | | | | | IMPLNT | | | | | | | NEUROELECT,E | | | | | | | PIDURAL TX | | | | | | | IMPLANT | | | | | | | NEUROSTIM/RE | | | | | | | CEIVER TX | | | | | | | [...] + + | 08/03/ | Hospital | [facility] | Maykel Hutchins MD | BACK PAIN, LUMBAR | | 2019 - | Encounter | [facility] | [address] | (Primary Dx); | | | | CARE FLOOR [address] | [place], | Chronic bilateral | | 08/04/ | | [address] | [place] [address] | low back pain with | | 2019 | | [place] | [phone] | right-sided sciatica | | | | [address] | | | | | | [phone] | | | +--------+ + + + [...] | Blood Pressure | 132/58 | 08/04/2019 1138 PDT | + + + + | Pulse | 61 | 08/04/20191137 PDT | + + + + | Temperature | 36.9 C (98.4 F) | 08/04/20191137 PDT | + + + + | Respiratory Rate | 20 | 08/04/20191137 PDT | + + + + | Oxygen Saturation | 99% | 08/04/20191137 PDT | + + + + | Inhaled Oxygen | - | - | | Concentration | | | + + + + | Weight | 52 kg (114 lb 10.2 | 08/03/2019725 PDT | | | oz) | | + + + + | Height | 154.9 cm (5' 1") | 08/03/2019 0726 PDT | + + + + | Body Mass Index | 21.66 | 08/03/2019 0726 PDT | + + + + documented in this encounter Discharge Instructions Instructions [...] by elevating your feet Date Last Reviewed: 6068-9254 [employer]. [address] [place] [address]. All righ ts reserved. This information is not intended as a substitute for professional medical care. Always follow your healthcare professional's instructions. Acetaminophen; Hydrocodone tablets or capsules Brand Names: Anexsia, Lorcet, Lorcet HD, Lorcet Plus, Lortab, Poultney, Verdrocet, Vicodin, Vi codin ES, Vicodin HP, [...] information carefully each time. Talk to your qa consultant regarding the use of this medicine in children. Special care may be needed. What side effects may I notice from receiving this medicine? Side effects that you should report to your doctor or health intensive care unit registered nurse as soon as p ossible: allergic reactions [...] attention (report to your doctor or health intensive care unit registered nurse if they continue or are bothersome): constipation [...] to an official disposal site. Contact the [facility] at [phone] or your [facility] to find a site. If you cannot [...] this medicine? Tell your doctor or health intensive care unit registered nurse if your pain does not go away, [...] contain acetaminophen with this medicine. Always read trinity tovar carefully. If you have questions, ask [...] not stand or sit up quickly, trev skye if you are an older patient. 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 The patient would need to follow up with patient on Tuesday. Electronically s igned by ANGELO Escudero at 08/04/2019 14:13 Julien Luevano ARNP - 08/04/2019 0841 PDT Kori Rubio is a 74 y.o. female patient s/p SCS placement with thoracic sequeira inectomy yesterday. Stayed overnight as patient lives alone. She has a friend that will pick her up today to go home to [facility]. Past Medical History: Diagnosis Date Acid [...] 100 mg Oral BID PRN Julien Guzman FIRE MANAGER HYDROcodone-acetaminophen (NORCO) 10-325 mg per tablet 1 tablet 1 tablet Oral Q4H PRN Julien Guzman, FIRE MANAGER 1 tablet at 08/04/19 0502 HYDROmorphone (DILAUDID) injection 0.2-0.4 mg 0.2-0.4 mg Intravenous Q1H PRN Maykel ortiz MD 0.2 mg at 08/03/19 1700 methocarbamol (ROBAXIN) tablet 1,500 mg 1,500 mg Oral Q6H PRN Julien Guzman FIRE MANAGER ondansetron (ZOFRAN ODT) disintegrating tablet 4 mg 4 mg Oral Q6H PRN Julien Guzman FIRE MANAGER rOPINIRole (REQUIP) tablet 4 mg 4 mg Oral 4x Daily PRN Maykel Hutchins MD senna (SENOKOT) tablet 8.6 mg 8.6 mg Oral BID PRN Julien Guzman, FIRE MANAGER sodium chloride 0.45% (1/2 NS) infusion Intravenous Continuous Maykel Hutchins MD 100 mL /hr at 08/03/19 1342 950 mL at 08/03/19 1342 sodium chloride 0.45% (1/2 NS) infusion Intravenous Continuous Julien Guzman FIRE MANAGER 100 m L/hr at 08/04/19 0057 Allergies [...] KANG Davis 08/04/2019 Zacarias Zaragoza RN - 08/03 1859 PDTEnd of shift chart audit check complete. Jane Kenney RN - 08/03/2019 1606 PDTJulien salguero Notified per PT: that Pt is Unsafe to go home tonightneeds sniff/home Health followup . Pt To Stay over Night/general Dietvorb Julien Guzman. Judyronically signed by Jane Vaca RN at 08/03/2019 16:08 Jane Ramirez RN - 08/03/2019 1502 PDTPT With Pt. Judyronically signed by Jane Vaca RN at 08/03/2019 15:03 PDTdoc umented in this encounter Plan of Treatment +--------+---------+ + + + | Date | Type | Specialty | Care Team | Description | +--------+---------+ + + + | 08/16/ | Office | Orthopedic Surgery | Gabi Guzman | | | 2018 | Visit | | [address] | | | | | [address] | | | | | | [place] [address] | | | | | | [phone] | | | | | | | | +--------+---------+ + + + | 08/16/ | Office | Pain Medicine | Denys Sibley, | | | 2018 | Visit | | [address] | | | | | | [place] | | | | | | [address] | | | | | | | | +--------+---------+ + + + + +--------+ + + | Name | Priori | Associated Diagnoses | Order Schedule | | | ty | | | + +--------+ + + | Referral to Home Health - | Routin | BACK PAIN, LUMBAR | Ordered: 08/04/2019 | | OUTPATIENT | e | Chronic bilateral | | | | | low back pain with | | | | | right-sided sciatica | | + +--------+ + + documented as of this encounter Procedures + +--------+ + + + | Procedure Name | Priori | Date/Time | Associated Diagnosis | Comments | | | ty | | | | + +--------+ + + + | POC GLUCOSE (NON | Routin | 08/03/2019 | | Results for this | | ORD) | e | 20:39 PDT | | procedure are in the | | | | | | results section. | + +--------+ + + + | POC GLUCOSE (NON | Routin | 08/03/2019 | | Results for this | | ORD) | e | 16:15 PDT | | procedure are in the | | | | | | results section. | + +--------+ + + + | POC GLUCOSE (NON | Routin | 08/03/2019 | | Results for this | | ORD) | e | 13:08 PDT | | procedure are in the | | | | | | results section. | + +--------+ + + + | POC GLUCOSE (NON | Routin | 08/03/2019 | | Results for this | | ORD) | e | 11:05 PDT | | procedure are in the | | | | | | results section. | + +--------+ + + + | FL C ARM | Routin | 08/03/2019 | | Results for this | | | e | 10:27 PDT | | procedure are in the | | | | | | results section. | + +--------+ + + + | POC GLUCOSE (NON | Routin | 08/03/2019 | | Results for this | | ORD) | e | 10:06 PDT | | procedure are in the | | | | | | results section. | + +--------+ + + + | POC GLUCOSE (NON | Routin | 08/03/2019 | | Results for this | | ORD) | e | 9:14 PDT | | procedure are in the | | | | | | results section. | + +--------+ + + + | LAMINOTOMY THORACIC | | 08/03/2019 | Postlaminectomy | | | / LUMBAR W/ | | 8:05 PDT | syndrome, thoracic | | | PLACEMENT SPINAL | | | region | | | CORD STIMULATOR | | | Radiculopathy of | | | | | | thoracolumbar region | | + +--------+ + + + +---+--------+ | | | | | Specia | | | l | | | Needs | | | RAINBOW TROUT FARM MANAGER | | | reques | | | nighat, | | | Akhtar | +---+--------+ + +--------+ +---+ + | TYPE AND SCREEN | STAT | 08/03/2019 | | Results for this | | | | 7:46 PDT | | procedure are in the | | | | | | results section. | + +--------+ +---+ + | POC GLUCOSE (NON | Routin | 08/03/2019 | | Results for this | | ORD) | e | 7:23 PDT | | procedure are in the | | | | | | results section. | + +--------+ +---+ + documented in this encounter Results POC Glucose (08/03/2019 20:39 PDT) + + + + + + | Component | Value | Ref Range | Performed | Pathologist | | | | | At | Signature | + + + + + + | Glucose, | 92Comment: Testing | 65 - 99 mg/dL | [facility] | | | POC | performed at [facility];[address] | | LABORATORY | | | | [address];[place] | | | | | | [address] | | | | + + + + + + + + | Specimen | + + | | + + + + + + + | Performing | Address | City/State/Zipcode | Phone Number | | Organization | | | | + + + + + | [facility] | [address] | [place] [address] | [phone] | + + + + + POC Glucose (08/03/2019 16:15 PDT) + + + + + + | Component | Value | Ref Range | Performed | Pathologist | | | | | At | Signature | + + + + + + | Glucose, | 99Comment: Testing | 65 - 99 mg/dL | [facility] | | | POC | performed at [facility];[address] | | LABORATORY | | | | [address];[place], [place] | | | | | | [address] | | | | + + + + + + + + | Specimen | + + | | + + + + + + + | Performing | Address | City/State/Zipcode | Phone Number | | Organization | | | | + + + + + | [facility] | [address] | [place] [address] | [phone] | + + + + + POC Glucose (08/03/2019 13:08 PDT) + + + + + + | Component | Value | Ref Range | Performed | Pathologist | | | | | At | Signature | + + + + + + | Glucose, | 107 (H)Comment: Testing | 65 - 99 mg/dL | [facility] | | | POC | performed at [facility];[address] | | LABORATORY | | | | [address];[place] | | | | | | [address] | | | | + + + + + + + + | Specimen | + + | | + + + + + + + | Performing | Address | City/State/Zipcode | Phone Number | | Organization | | | | + + + + + | [facility] | [address] | [place] [address] | [phone] | + + + + + POC Glucose (08/03/2019 11:05 PDT) + + + + + + | Component | Value | Ref Range | Performed | Pathologist | | | | | At | Signature | + + + + + + | Glucose, | 108 (H)Comment: Testing | 65 - 99 mg/dL | [facility] | | | POC | performed at [facility];[address] | | LABORATORY | | | | [address];[place] | | | | | | [address] | | | | + + + + + + + + | Specimen | + + | | + + + + + + + | Performing | Address | City/State/Zipcode | Phone Number | | Organization | | | | + + + + + | [facility] | [address] | [place] [address] | [phone] | + + + + + LINSEY Moralez (08/03/2019 10:27 PDT) + + | Specimen | + [...] [facility] | | Spinal cord stimulator T9 FINDINGS: Fluoro Time: | | | .17 minute(s). Number of images: 1 Air Kerma: 1.80 mGy | | | Surgical hardware overlying the spine. | | + + + + + | Procedure Note | + + | Reji Pacheco Results In - 08/03/2019 1105 PDT | | FLUOROSCOPY C ARM | [...] +---------+ + + POC Glucose (08/03/2019 10:06 PDT) + + + + + + | Component | Value | Ref Range | Performed | Pathologist | | | | | At | Signature | + + + + + + | Glucose, | 139 (H)Comment: Testing | 65 - 99 mg/dL | [facility] | | | POC | performed at [facility];[address] | | LABORATORY | | | | [address];[place] | | | | | | [address] | | | | + + + + + + + + | Specimen | + + | | + + + + + + + | Performing | Address | City/State/Zipcode | Phone Number | | Organization | | | | + + + + + | [facility] | [address] | [place] [address] | [phone] | + + + + + POC Glucose (08/03/2019 9:14 PDT) + + + + + + | Component | Value | Ref Range | Performed | Pathologist | | | | | At | Signature | + + + + + + | Glucose, | 80Comment: Testing | 65 - 99 mg/dL | [facility] | | | POC | performed at [facility];[address] | | LABORATORY | | | | [address];[place] | | | | | | [address] | | | | + + + + + + + + | Specimen | + + | | + + + + + + + | Performing | Address | City/State/Zipcode | Phone Number | | Organization | | | | + + + + + | [facility] | [address] | [place] [address] | [phone] | + + + + + Type and Screen (08/03/2019 7:46 PDT) + + + + + + [...] + + + | [facility] | [id number] | | [facility] | | | | | | LABORATORY | | + + + + + + | [facility] | Testing performed at | | [facility] | | | | [facility];[address] | | LABORATORY | | | | [address];[place] [address] | | | | + + + + + + + + | Specimen | + + | Blood | + + + + + + + | Performing | Address | City/State/Zipcode | Phone Number | | Organization | | | | + + + + + | [facility] | [address] | [place] [address] | [phone] | + + + + + POC Glucose (08/03/2019 7:23 PDT) + + + + + + | Component | Value | Ref Range | Performed | Pathologist | | | | | At | Signature | + + + + + + | Glucose, | 77Comment: Testing | 65 - 99 mg/dL | [facility] | | | POC | performed at [facility];[address] | | LABORATORY | | | | [address];[place] | | | | | | [address] | | | | + + + + + + + + | Specimen | + + | | + + + + + + + | Performing | Address | City/State/Zipcode | Phone Number | | Organization | | | | + + + + + | [facility] | [address] | [place] [address] | [phone] | + + + + + documented in this encounter Visit Diagnoses + + | Diagnosis | + + | BACK PAIN, LUMBAR - Primary Lumbago | + + | Chronic bilateral low back pain with right-sided sciatica | + + documented in this encounter Administered Medications + +--------+ +--------+------+------+ | Medication Order | MAR | Action | Dose | Rate | Site | | | Action | Date | | | | + +--------+ +--------+------+------+ | acetaminophen (TYLENOL) tablet | Given | 08/03/20 | 500 mg | | | | 500 mg 500 mg, Oral, ONCE PRN, | | 19 12:05 | | | | | Pain, Starting 08/03/19 at | | PDT | | | | | 1036, For 1 dose, One time if | | | | | | | none given within 4 hours., | | | | | | | Recovery/Phase I | | | | | | + +--------+ +--------+------+------+ +---+---+ | | | +---+---+ + +---------+ +---+---+---+ | balanced electrolytes in water | New Bag | 08/03/20 | | | | | (PLASMALYTE-148/NORMOSOL-R) | | 19 9:31 | | | | | infusion at 50 mL/hr, | | PDT | | | | | Intravenous, CONTINUOUS, Starting | | | | | | | Tue08/03/19 at 0745, Pre-op | | | | | | + +---------+ +---+---+---+ +---------+ +---+ +---+ | New Bag | [...] | + +---+ + +-------+ +--------+---+---+ | fentaNYL (PF) injection 25-50 | Given | 08/03/20 | 25 mcg | | | | mcg 25-50 mcg, Intravenous, | | 19 12:07 | | | | | EVERY 5 MIN PRN, Pain, Initial | | PDT | | | | | postop medication for URGENT PAIN | | | | | | | OR ESCALATING PAIN, Starting Fri | | | | | | | 08/03/19 at 1036, For 4 doses, | | | | | | | First dose must be lowest dose. | | | | | | | Use Pasero Sedation Scale. | | | | | | | [Opioid tolerant = One week or | | | | | | | longer, xguyxo-mnx-wcfvw use of | | | | | | | at least the following DAILY | | | | | | | dose: 60mg oral morphine, 60mg | | | | | | | oral hydrocodone, 30mg oral | | | | | | | oxycodone, 8mg oral | | | | | | | hydromorphone, fentanyl patch | | | | | | | 25mcg/hr, or equivalent dose of | | | | | | | another opioid], Recovery/Phase I | | | | | | + +-------+ +--------+---+---+ +-------+ +--------+---+---+ | Given | 10/04/20 | 50 mcg | | | | | 19 11:48 | | | | | | PDT | | | | +-------+ +--------+---+---+ | Given | 08/03/20 | 25 mcg | | | | | 19 11:30 | | | | | | PDT | | | | +-------+ +--------+---+---+ +---+---+ | | | +---+---+ + +-------+ + +---+---+ | HYDROcodone-acetaminophen | Given | 08/04/20 | 1 tablet | | | | (NORCO) 10-325 mg per tablet 1 | | 19 13:37 | | | | | tablet 1 tablet, Oral, EVERY 4 | | PDT | | | | | HOURS PRN, Pain, Starting Fri | | | | | | | 08/03/19 at 1755 | | | | | | + +-------+ + +---+---+ +-------+ + +---+---+ | Given | 08/04/20 | 1 tablet | | | | | 19 9:24 | | | | | | PDT | | | | +-------+ + +---+---+ | Given | 08/04/20 | 1 tablet | | | | | 19 5:02 | | | | | | PDT | | | | +-------+ + +---+---+ +---+---+ | | | +---+---+ + +-------+ +--------+---+---+ | HYDROmorphone (DILAUDID) | Given | 08/03/20 | 0.2 mg | | | | injection 0.2-0.4 mg 0.2-0.4 mg, | | 19 17:00 | | | | | Intravenous, EVERY 1 HOUR PRN, | | PDT | | | [...] 0.2 mg | | | | injection 0.2-0.6 mg 0.2-0.6 mg, | | 19 12:30 | | | | | Intravenous, EVERY 5 MIN PRN, | | PDT | | | | | Pain, Starting Tue08/03/19 at | | | | | | | 1036, First dose must be lowest | | | | | | | dose, can increase subsequent | | | | | | | doses by 0.2mg within dosing | | | | | | | range. If patient meets opioid | | | | | | | tolerant definition, can start | | | | | | | with 0.4mg dose. [Maximum total | | | | | | | PACU dose 2 mg] Use Pasero | | | | | | | Sedation Scale. [Opioid tolerant | | | | | | | = One week or longer, | | | | | | | [id number]-mzc-[id number] use of at least | | | | | | | the following DAILY dose: 60mg | | | | | | | oral morphine, 60mg oral | | | | | | | hydrocodone, 30mg oral oxycodone, | | | | | | | 8mg oral hydromorphone, fentanyl | | | | | | | patch 25mcg/hr, or equivalent | | | | | | | dose of another opioid], | | | | | | | Recovery/Phase I | | | | | | + +-------+ +--------+---+---+ +-------+ +--------+---+---+ | Given | 08/03/20 | 0.6 mg | | | | | 19 11:59 | | | | | | PDT | | | | +-------+ +--------+---+---+ | Given | 08/03/20 | 0.6 mg | | | | | 19 11:37 | | | | | | PDT | | | | +-------+ +--------+---+---+ +---+---+ | | | +---+---+ + +-------+ +-------+---+---+ | ketorolac (TORADOL) injection | Given | 08/03/20 | 30 mg | | | | 30 mg 30 mg, Intravenous, ONCE | | 19 11:12 | | | | | PRN, Pain, Starting 08/03/19 | | PDT | | | | | at 1036, For 1 dose, If no NSAIDs | | | | | | | within past 6 hours (note: this | | | | | | | counts as the "first" postop dose | | | | | | | if ketorolac ordered on postop | | | | | | | orders), Recovery/Phase I | | | | | | + [...] | + +---+ + +-------+ +------+---+---+ | oxyCODONE (ROXICODONE) tablet 5 | Given | 08/03/20 | 5 mg | | | | mg 5 mg, Oral, ONCE PRN, Pain, | | 19 11:19 | | | | | Starting Tue08/03/19 at 1036, For | | PDT | | | | | 1 dose, If able to take oral | | | | | | | medication., Recovery/Phase I | | | | | | + +-------+ +------+---+---+ +---+---+ | | | +---+---+ + +-------+ +-------+---+---+ | povidone-iodine 5 % external | Given | 08/03/20 | 4 mLs | | | | solution Topical, PRN, Other, | | 19 7:53 | | | | | pre-op, Starting Tue08/03/19 at | | PDT | | | | | 0720, For 1 dose, Pre-op | | | | | | [...] (REQUIP) tablet 4 mg | Given | 08/04/20 | 4 mg | | | | 4 mg, Oral, ONCE, 08/04/19 | | 19 0:56 | | | | | at 0015, For 1 dose, One time | | PDT | | | | | order to give dose tonight and | | | | | | | then will need to clarify for | | | | | | | further dosing., | | | | | | + +-------+ +------+---+---+ + +---+ | | | + +---+ [...] infusion at 100 mL/hr, | | 19 13:42 | | mL/hr | | | Intravenous, CONTINUOUS, Starting | | PDT | | | | | 08/03/19 at 1400, | | | | | | | Post-op/Phase II | | | | | | + +---------+ +---------+-------+---+ +---+---+ | | | +---+---+ + +---------+ +---+-------+---+ | sodium chloride 0.45% (1/2 NS) | New Bag | 08/04/20 | | 100 | | | infusion at 100 mL/hr, | | 19 0:57 | | mL/hr | | | Intravenous, CONTINUOUS, Starting | | PDT | | | | | 08/03/19 at 1945, | | | | | | | Post-op/Phase II | | | | | | + +---------+ +---+-------+---+ + + +---+-------+---+ | Continued Bag | 08/03/ | | 100 | | | | 19 20:48 | | mL/hr | | | | PDT | | | | + + +---+-------+---+ +---+---+ | | | +---+---+ documented in this encounter
--- OUTSIDE RECORDS SUMMARY | ~2019-08-09 | XMS | Encounter Summary ---
Demographics + + + | Address | [address] | | | [place] [address] | + + + | Home Phone | | + + + | Preferred Language | Unknown | + + + | Marital Status | Single | + + + | Hinduism Affiliation | NON | + + + | Race | White | + + + | Ethnic Group | Not or | + + + Author + + + | Author | [facility] | + + + | Organization | [facility] | + + + | Address | Unknown | + + + | Phone | Unavailable | + + + Support + + +---------+ + | Name | Relationship | Address | Phone | + + +---------+ + | Royce Menchaca | ECON | Unknown | | + + +---------+ + Care Team Providers + +------+ + | Care Routing Machine Operator Name | Role | Phone | + +------+ + | Miquel Calhoun MD | PCP | | + +------+ + Encounter Details +--------+ + + + + | Date | Type | Department | Care Team | Description | +--------+ + + + + | 11/29/ | Documentati | [facility] | Khushbu Cortez, | | | 2013 | on | [facility] | [employer] [place], [place] | | | | | [address] | [address] | | | | | [address] | | | | | | Aravind Hannon | | | | | | [facility] [place] | | | | | | [address] | | | | | | [phone] | | | +--------+ + + + [...]
--- OUTSIDE RECORDS SUMMARY | ~2019-08-09 | XMS | Encounter Summary ---
Demographics + + + | Address | [address] | | | [place] [address] | + + + | Home Phone | | + + + | Preferred Language | Unknown | + + + | Marital Status | Single | + + + | Anabaptism Affiliation | NON | + + + | Race | White | + + + | Ethnic Group | Not or | + + + Author + + + | Author | [facility] | + + + | Organization | [facility] | + + + | Address | Unknown | + + + | Phone | Unavailable | + + + Support + + +---------+ + | Name | Relationship | Address | Phone | + + +---------+ + | Royce Menchaca | ECON | Unknown | | + + +---------+ + Care Team Providers + +------+ + | Care Industrial Ecologist Name | Role | Phone | + +------+ + | Oxana Nye | PCP | Unavailable | + +------+ + Encounter Details +--------+ + + + + | Date | Type | Department | Care Team | Description | +--------+ + + + + | 03/05/ | MyChart | Cardiology General | Airam Fuchs MD | RE: Do you have all | | 2016 | Encounter | at [facility] [address] | [address] | medical records from | | | | Abbe Soto Mailcode: | [address] [facility], | [facility] in | | | | [address] | [place] [address] | [facility] | | | | [facility], | [phone] | [facility] | | | | | | Ant | | | | Floor [place], [place] | | | | | | [address] | | | | | | [phone] | | | +--------+ + + + [...]
--- OUTSIDE RECORDS SUMMARY | ~2019-08-09 | XMS | Clinical Summary ---
Demographics + + + | Address | [address] | | | [place] [address] | + + + | Home Phone [...] + | Author | [facility] (Historical as of | | | 06-16-19) | + + + | Organization | [facility] (Historical as of | | | 06-16-19) [...] Team Providers + +------+ + | Care Photovoltaic Power Systems Engineer Name | Role | Phone | [...] +---------+------+------+-------+ | | Apply to affected | 63364 g | 3 | 04/30 | 04/30 [...] Overview: Added automatically from request for surgery [id number] | + + + + + | Radiculopathy of thoracolumbar region | 06/07/2019 | + + + + + | Overview: Added automatically from request for surgery [id number] | + + + + + | Radiculopathy, lumbosacral region | 06/07/2019 | + + + + + | Overview: Added automatically from request for surgery [id number] | + + + + + | Spondylosis without myelopathy or radiculopathy, cervical region | 03/20/2019 | + + + + + | Overview: Added automatically from request for surgery [id number] | + + + + + | Spondylosis without myelopathy or radiculopathy, lumbosacral | 03/20/2019 | | region | | + + + + + | Overview: Added automatically from request for surgery [id number] | + + + + + | Chronic bilateral low back pain without sciatica | 03/20/2019 | + + + + + | Overview: Added automatically from request for surgery [id number] | + + + + + | Strain of lumbar region | 02/25/2019 | + + + + + | Overview: Added automatically from request for surgery [id number] | + + + + + | Lumbar region somatic dysfunction | 02/25/2019 | + + + + + | Overview: Added automatically from request for surgery [id number] | + + + + + | Chronic low back pain with sciatica | 02/25/2019 | + + + + + | Overview: Added automatically from request for surgery [id number] | + + + + + | Intervertebral disc disorders with radiculopathy, lumbosacral | 02/25/2019 | | region | | + + + + + | Overview: Added automatically from request for surgery [id number] | + + + + + | Spinal stenosis of lumbosacral region | 02/25/2019 | + + + + + | Overview: Added automatically from request for surgery [id number] | + + + + + | [...] Overview: Added automatically from request for surgery [id number] | | Problem List 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 | + + + + + [...] LAMINECTOMY | +--------+ + + + + | 05/25/ | Telephone | | Denys Sibley, | Medication Question | | 2018 | | | DO | | +--------+ + + + + | 05/14/ | Office | | Laraiso, Denys G, | Intractable back | | 2019 | Visit | | DO | pain (Primary Dx); | | | | | | Closed compression | | | | | | fracture of fifth | | | | | | lumbar vertebra, | | | | | | sequela; | | | | | | Degenerative lumbar | | | | | | spinal stenosis; | | | | | | Chronic pain | | | | | | disorder; Encounter | | | | | | for long-term use of | | | | | | opiate analgesic; | | | | | | Lumbar region | | | | | | somatic dysfunction; | | | | | | Chronic low back | | | | | | pain with sciatica, | | | | | | sciatica laterality | | | | | | unspecified, | | | | | | unspecified back | | | | | | pain laterality; | | | | | | Intervertebral disc | | | | | | disorders with | | | | | | radiculopathy, | | | | | | lumbosacral region | +--------+ + + + + from [...] + + | 08/16/ | Office | | Gabi Guzman | | | 2019 | Visit | | [address] | | | | | | [address] | | | | | | [place] [address] | | | | | | [phone] | | | | | | | [...] | Back | | | 2019 | | | 06/13/2018 by Alfredo Casillas, | | | | | | / | | DO | | | | | | /[id number] | | | | | | | | 2 | + +------+-------+ +--------+--------+--------+ | Stim Nrv Lead Octrode 60cm - | | | [facility] | | 11/23/ | [id number] | | [id number]: Qty: 1 on | | | MEDICAL - | | 2020 | S | | 03/28/2019 by Sonja, | | | JU | | | /[id number] | | DO Alfredo | | | [...] +------+-------+ + | MEDICARE | MEDICA | [id number] | | | [address] | | | RE | | | | [place] [address] | | | IP-OP | | | | | + +--------+ +------+-------+ + | COMMERCIAL OTHER | COMMER | [id number] | | | | | | CIAL [...] Self | [birth year] | Home: | [address] | | [place] | al/Benji | | 1945 | [phone] | [place] [address] | | | jose | | | [phone] | | + +--------+ +--------+ + +
--- OUTSIDE RECORDS SUMMARY | ~2019-08-09 | XMS | Encounter Summary ---
Demographics + + + | Address | [address] | | | [place] [address] | + + + | Home Phone | | + + + | Preferred Language | Unknown | + + + | Marital Status | | + + + | Buddhism Affiliation | 1013 | + + + [...] Team Providers + +------+ + | Care Land Economist Name | Role | Phone | + [...] | | | stenosis | B | [address] | | | | | | [place], [place] | Phone: | | | | | | [address] | [phone] | | | | | | Phone: | Fax: | | | | | | [phone] | [phone] | | | | | | Fax: | | | | | | | [phone] | | + +--------+ + + + + Encounter Details +--------+---------+ + + + | Date | Type | Department | Care Team | Description | +--------+---------+ + + + | 07/18/ | Office | [facility] | Denys Sibley, | Lumbar region | | 2018 | Visit | [facility] | DO [address] | somatic dysfunction | | | | [facility] [address] | (Primary Dx); | | | | [address] | [address] | Intractable back | | | | [place] | | pain; Encounter for | | | | [address] | | long-term use of | | | | [phone] | | opiate analgesic; | | | [...] + | Blood Pressure | 102/52 | 07/18/2019853 PDT | + + + + | Pulse | 64 | 07/18/2019853 PDT | + + + + | Temperature | - | - | + + + + | Respiratory Rate | 16 | 07/18/2019853 PDT | + + + + | Oxygen Saturation | 100% | 07/18/2019853 PDT | + + + + | Inhaled Oxygen | - | - | | Concentration | | | + + + + | Weight | 50.9 kg (112 lb 3.2 | 07/18/2019853 PDT | | | oz) | | + + + + | Height | 154.9 cm (5' 1") | 07/18/2019853 PDT | + + + + | Body Mass Index | 21.2 | 07/18/2019 0854 PDT | + + + + documented in this encounter Progress Notes Denys Sibley, DO - 07/18/2019 0855 PDTFormatting of this note might be different from t he original. Patient returns for medication review and [...] Current Pain Level 2/10 Worst 7/10 Best 10 Past Medical History: Diagnosis Date Acute renal failure ([facility]) April 2013 Anesthesia hallucinated after bladder repair Arthralgia Asthma Asthma Cancer ([facility]) 2004 breast Cerebrovascular accident (CVA) ([facility]) no per pt Chronic back pain Chronic back pain Concussion 07/2015 Preceeded by seizure Constipation COPD (chronic obstructive pulmonary disease) ([facility]) Degenerative disc disease Depression Depression Diabetes mellitus ([facility]) Diabetes mellitus, type 2 ([facility]) diet controlled Diarrhea Disorder of [...] of lumbar spine 04/17/2014 Seizure ([facility]) one due to meds, two [...] to physical therapy, mass age therapy, acupuncture, disabilities caregiver, along with recommended psychological counseling , either privately, or in group sessions offered by private care individuals, community serv ices, or mandaeism organizations. Appropriate referrals were made [...] Will return to office in 4 weeks, [facility] was consulted and appears appropriate, [...] are noted in men and women. Ma pa men will suffer erectile dysfunction with these [...] and complications with the passage of time. correction use is also associated with depressions, and [...] Surgery | Gabi Guzman | | | 2019 | Visit | | [address] | | | | | | [facility] | | | | | | [place] [address] | | | | | | [phone] | | | | | | | | +--------+---------+ + + + | 08/16/ | Office | Pain Medicine | Denys Sibley, | | | 2018 | Visit | | DO [address] | | | | | | [address] | | | | | | [address] | | | | | | | [...]
--- OUTSIDE RECORDS SUMMARY | ~2019-08-09 | XMS | Encounter Summary ---
Demographics + + + | Address | [address] | | | [place] [address] | + + + | Home Phone [...] Author + + + | Author | [facility] | + + + | Organization | [facility] | + + + | Address | Unknown | + + + | Phone | Unavailable | + + + Support + + +---------+ + | Name | Relationship | Address | Phone | + + +---------+ + | Royce Menchaca | ECON | Unknown | | + + +---------+ + Care Team Providers + +------+ + | Care Cook Restaurant Name | Role | Phone | + +------+ + | Oxana Nye | PCP | Unavailable | + +------+ + Encounter Details +--------+------+ + + + | Date | Type | Department | Care Team | Description | +--------+------+ + + + | 03/09/ | Lab | Laboratory at [facility] | | Chest pain, | | 2016 | | [address] | | unspecified type | | | | [place], [place] | | | | | | [address] | | | | | | [phone] | | | +--------+------+ + + + Social History + +-------+ [...] | + +--------+ + + + | LIPID [facility] - | Routin | 03/09/2016 | Chest pain, | Results for this | | LIPID PROFILE- | e | 4:54 PM | unspecified type | procedure are in the | | PLASMA LIPIDS, HDL | | PDT | | results section. | | AND LDL | | | | | + +--------+ + + + documented in this encounter Results [facility] - [...] | + + + + + | [facility] | [address] | [place], [place] | | | | [address] | [address] | | + + + + + documented in this encounter Visit Diagnoses + + | Diagnosis | + + | Chest pain, unspecified type | + + documented in this encounter"
--- OUTSIDE RECORDS SUMMARY | ~2019-08-09 | XMS | Encounter Summary ---
Demographics + + + | Address | [address] | | | [place] [address] | + + + | Home Phone | | + + + | Preferred Language | Unknown | + + + | Marital Status | Single | + + + | Scientology Affiliation | NON | + + + | Race | White | + + + | Ethnic Group | Not or | + + + Author + + + | Author | [facility] | + + + | Organization | [facility] | + + + | Address | Unknown | + + + | Phone | Unavailable | + + + Support + + +---------+ + | Name | Relationship | Address | Phone | + + +---------+ + | Royce Menchaca | ECON | Unknown | | + + +---------+ + Care Team Providers + +------+ + | Care Facsimile Operator Name | Role | Phone | + +------+ + | Oxana Nye | PCP | Unavailable | + +------+ + Reason for Visit +--------+ + | Reason | Comments | +--------+ + | Other | Records for new pt appt | +--------+ + Encounter Details +--------+ + + + + | Date | Type | Department | Care Team | Description | +--------+ + + + + | 01/12/ | Abstract | Cardiology General | Airam Fuchs MD | Other (Records for | | 2015 | | at [facility] [address] | [address] | new pt appt) | | | | [address] Mailcode: | [address] [place], | | | | | [address] [facility] | [place] [address] | | | | | [facility], | [phone] | | | | | [facility] | | | | | | Floor [place], [place] | | | | | | [address] | | | | | | [phone] | | | +--------+ + + + [...]
--- OUTSIDE RECORDS SUMMARY | ~2019-08-09 | XMS | Encounter Summary ---
Demographics + + + | Address | [address] | | | [place] [address] | + + + | Home Phone | | + + + | Preferred Language | Unknown | + + + | Marital Status | Single | + + + | Restorationist Affiliation | NON | + + + [...] Team Providers + +------+ + | Care Food And Nutrition Professor Name | Role | Phone | [...] | | 2016 | Encounter | at [facility] [address] | [address] | havea problem with | | | | [address] Mailcode: | [address] [place], | my heart. | | | | [address] [place] [address] | [place] [address] | | | | | Health [facility], | [phone] | | | | | | | | | | | Floor [place], [place] | | | | | | [address] | | | | | | [phone] | | | +--------+ + + + [...]
--- OUTSIDE RECORDS SUMMARY | ~2019-08-09 | XMS | Clinical Summary ---
Demographics + + + | Address | [address] | | | [place] [address] | + + + | Home Phone [...] + + | Author | [facility] (Historical as of | | | 06-16-19) | + + + | Organization | [facility] (Historical as of | | [...] Team Providers + +------+ + | Care Youth Development Specialist Name | Role | Phone | [...] +---------+------+------+-------+ | | Apply to affected | 64783 g | 3 | 04/30 | 04/30 [...] Overview: Added automatically from request for surgery [id number] | + + + + + | Radiculopathy of thoracolumbar region | 06/07/2019 | + + + + + | Overview: Added automatically from request for surgery [id number] | + + + + + | Radiculopathy, lumbosacral region | 06/07/2019 | + + + + + | Overview: Added automatically from request for surgery [id number] | + + + + + | Spondylosis without myelopathy or radiculopathy, cervical region | 03/20/2019 | + + + + + | Overview: Added automatically from request for surgery [id number] | + + + + + | Spondylosis without myelopathy or radiculopathy, lumbosacral | 03/20/2019 | | region | | + + + + + | Overview: Added automatically from request for surgery [id number] | + + + + + | Chronic bilateral low back pain without sciatica | 03/20/2019 | + + + + + | Overview: Added automatically from request for surgery [id number] | + + + + + | Strain of lumbar region | 02/25/2019 | + + + + + | Overview: Added automatically from request for surgery [id number] | + + + + + | Lumbar region somatic dysfunction | 02/25/2019 | + + + + + | Overview: Added automatically from request for surgery [id number] | + + + + + | Chronic low back pain with sciatica | 02/25/2019 | + + + + + | Overview: Added automatically from request for surgery [id number] | + + + + + | Intervertebral disc disorders with radiculopathy, lumbosacral | 02/25/2019 | | region | | + + + + + | Overview: Added automatically from request for surgery [id number] | + + + + + | Spinal stenosis of lumbosacral region | 02/25/2019 | + + + + + | Overview: Added automatically from request for surgery [id number] | + + + + + | [...] Overview: Added automatically from request for surgery [id number] | | Problem List Corporate Staff Accountant Utility | + + + + + [...] [address] | | | | | | [place] [address] | | | | | | [phone] | | | | | | | [...] | | 11/23/ | [id number] | | [id number]: Qty: 1 on | | | MEDICAL - | | 2020 | S | | 03/28/2019 by Sonja, | | | JU | | | /[id number] | | DO Alfredo | | | [...] +------+-------+ + | MEDICARE | MEDICA | [id number] | | | [address] | | | RE | | | | [place] [address] | | | IP-OP | | | | | + +--------+ +------+-------+ + | COMMERCIAL OTHER | COMMER | [id number] | | | | | | CIAL [...] | 1945 | [phone] | [place] [address] | | | jose | | | [phone] | | + +--------+ +--------+ + +
--- OUTSIDE RECORDS SUMMARY | ~2019-08-09 | XMS | Clinical Summary ---
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 | + + + + + + [...] 4 | | 0 | | | Activ | | (REQUIP) 4 mg tablet | times daily. | | | | | e | + + + +---------+------+------+-------+ | clonazePAM [...] 0 | | | Activ | | (ROBAXIN) 500 mg | 4 (four) times | | | | | e | | tablet | daily. | | | | | | + + + +---------+------+------+-------+ | Multiple | Take 1 tablet by | | 0 | | | Activ | | Vitamins-Minerals | mouth daily. | | | | | e | | (MULTIVITAMIN WITH | | | | | | | | MINERALS) tablet | | | | | | | + + + +---------+------+------+-------+ | ondansetron | Take 24 mg by mouth | | 0 | | | Activ | | (ZOFRAN) 24 MG | once. 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 | | | | | | + + + +---------+------+------+-------+ | fentaNYL | Place 1 patch onto | 10 | 0 | 07/01 | | Activ | | (DURAGESIC) 25 | the skin every 72 | patch | | 06/19 | | e | | mcg/hrIndications: | hours. | | | 19 | | | | Chronic bilateral | [...] tablet by | 120 | 0 | 07/01 | | Activ | | HYDROcodone-acetamin | mouth every 6 (six) | tablet | | 06/19 | | e | | ophen (NORCO) | hours as needed for | | | 19 | | | | 7.5-325 mg per [...] | | + + + +---------+------+------+-------+ | Calcium | Take by mouth. | | 0 | | | Activ | | Carb-Cholecalciferol | | | | | | e | | (CALCIUM 1000 + D | | | | | | | | PO) | | | | | | | + + + +---------+------+------+-------+ | Ascorbic Acid | Take 1,000 mg by | | 0 | | | Activ | | (VITAMIN C) 1000 MG | mouth Daily. | | | | | e | | tablet | | | | | | | + + + +---------+------+------+-------+ | nitroglycerin | Place 0.4 mg under | | 0 | | | Activ | | (NITROSTAT) 0.4 mg | the tongue every 5 | | | | | e | | SL tablet | minutes as needed | | | | | | | | for Chest pain. | | | | | | + + + +---------+------+------+-------+ | ALBUTEROL IN | Inhale into the | | 0 | | | Activ | | | lungs. | | | | | e | + + + +---------+------+------+-------+ | | Take 1 tablet by | 60 | 0 | 10/0 | | Activ | | HYDROcodone-acetamin | mouth every 6 hours | tablet | | 4/20 | | e | | ophen (NORCO) 10-325 | as needed for Pain. | | | 19 | | | | mg per tablet | | | | | | | + + + +---------+------+------+-------+ | ibuprofen | Take 600 mg by mouth | | 0 | | 09/1 | Disco | | (ADVIL,MOTRIN) 600 | every 6 hours as | | | | 8/20 | ntinu | | MG tablet | needed for Pain. | | | | 19 | ed | + + + +---------+------+------+-------+ | fentaNYL | Place 1 patch onto | | 0 | 07/1 | 09/1 | Disco | | (DURAGESIC) 25 | the skin every third | | | 5/20 | 8/20 | ntinu | | mcg/hr | day for 30 days. | | | 19 | 19 | ed | + + + +---------+------+------+-------+ | | Take 1 tablet by | | 0 | 07/1 | 09/1 | Disco | | HYDROcodone-acetamin | mouth every 6 (six) | | | 5/20 | 8/20 | ntinu | | ophen (NORCO) | hours as needed for | | | 19 | 19 | ed | | 7.5-325 mg per | Pain for up to 30 | | | | | | | tablet | days. | | | | | | + + + +---------+------+------+-------+ | fentaNYL | Place 1 patch onto | 10 | 0 | 08/ | 07/01 | Disco | | (DURAGESIC) 25 | the skin every 72 | patch | | / | / | ntinu | | mcg/hrIndications: | hours. | | | 19 | 19 | ed | | Chronic bilateral | | | [...] tablet by | 120 | 0 | 05/31 | 07/01 | Disco | | HYDROcodone-acetamin | mouth every 6 hours | tablet | | 07/20 | 06/19 | ntinu | | ophen (NORCO) 10-325 | as needed for Pain | | | 19 | 19 | ed | | mg per | [...] | | | | | | sciatica, Facet | | | | | | | | arthritis of lumbar | | | | | | | | region, Foraminal | | | | | | | | stenosis of lumbar | | | | | | | | region, | | | | | | | | Intervertebral disc | | | | | | | | disorders with | | | | | | | | radiculopathy, | | | | | | | | lumbosacral region, | | | | | | | | Intractable back | | | | | | | | pain, Spinal | | | | | | | | stenosis of | | | | | | | | lumbosacral region, | | | | | | | | Closed compression | | | | | | | | fracture of fifth | | | | | | | | lumbar vertebra, | | | | | | | | sequela, Encounter | | | | | | | [...] Noted Date | + + + | Spondylosis without myelopathy or radiculopathy, cervical region | 03/20/2019 | + + + + + | Overview: Added automatically from request for surgery [id number] | + + + + + | Spondylosis without myelopathy or radiculopathy, lumbosacral | 03/20/2019 | | region | | + + + + + | Overview: Added automatically from request for surgery [id number] | + + + + + | Chronic bilateral low back pain without sciatica | 03/20/2019 | + + + + + | Overview: Added automatically from request for surgery [id number] | + + + + + | Intervertebral disc disorders with radiculopathy, lumbosacral | 02/25/2019 | | region | | + + + + + | Overview: Added automatically from request for surgery [id number] | + + + + + | Chronic low back pain with sciatica | 02/25/2019 | + + + + + | Overview: Added automatically from request for surgery [id number] | + + + + + | Lumbar region somatic dysfunction | 02/25/2019 | + + + + + | Overview: Added automatically from request for surgery [id number] | + + + + + | Strain of lumbar region | 02/25/2019 | + + + + + | Overview: Added automatically from request for surgery [id number] | + + + + + | Spinal stenosis of lumbosacral region | 02/25/2019 | + + + + + | Overview: Added automatically from request for surgery [id number] | + + + + + | [...] Overview: Added automatically from request for surgery [id number] | | 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 | + + + + + [...] + +---+ + + | Overview: LOUISE [id number] Decision | + + + +---+ | [...] + + | 08/06/ | Telephone | Orthopedic Surgery | Maykel Hutchins MD | Medication Question | | 2018 | | | | | +--------+ + + + + | 08/03/ | Anesthesia | | Yojana Arellano CRNA | | | 2018 | Event | | | | +--------+ + + + + | 08/03/ | Surgery | | Maykel Hutchins MD | LAMINOTOMY THORACIC | | 2018 | | | | / LUMBAR W/ | | | | | | PLACEMENT SPINAL | | | | | | CORD STIMULATOR | +--------+ + + + + | 08/03/ | Hospital | Internal Medicine | Maykel Hutchins MD | BACK PAIN, LUMBAR | | 2018 - | Encounter | | | (Primary Dx); | | | | | | Chronic bilateral | | 08/04/ | | | | low back pain with | | 2018 | | | | right-sided sciatica | +--------+ + + + + | 07/30/ | Telephone | Orthopedic Surgery | Maykel Hutchins MD | Paperwork (Good | | 2018 | | | | [facility] | | | | | | Healthcare Orders) | +--------+ + + + + | 07/24/ | Telephone | Orthopedic Surgery | Maykel Hutchins MD | Pre-op Question | | 2018 | | | | | +--------+ + + + + | 07/20/ | Telephone | Orthopedic Surgery | Maykel Hutchins MD | Procedure (Question) | | 2018 | | | | | +--------+ + + + + | 07/19/ | Telephone | Orthopedic Surgery | Gabi Guzman | Imaging Only | | 2019 | | | [facility] | | +--------+ + + + + | 07/18/ | Hospital | Radiology | Maykel Hutchins MD | | | 2019 | Encounter | | | | +--------+ + + + + | 07/18/ | Preadmit | Pre-Admission | No, Physician | | | 2019 | Visit | Testing | | | +--------+ + + + + | 07/18/ | Clinical | Neurosurgery | | Radiculopathy of | | 2019 | Support | | | thoracolumbar | | | | | | region; | | | | | | Postlaminectomy | | | | | | syndrome, thoracic | | | | | | region | +--------+ + + + + | 07/18/ | Office | Pain Medicine | Denys Sibley, | Lumbar region | | 2019 | Visit | | DO | somatic dysfunction | | | | | | (Primary Dx); | | | | | | Intractable [...] + | 07/17/ | Prep for | Orthopedic Surgery | Maykel Hutchins MD | Chronic low back | | 2018 | Procedure | | | pain with sciatica, | | | | | | sciatica laterality | | | | | | unspecified, | | | | | | unspecified back | | | | | | pain laterality | | | | | | (Primary Dx); Right | | | | | | lumbar | | | | | | radiculopathy; | | | | | | Degenerative lumbar | | | | | | spinal stenosis | +--------+ + + + + | 07/05/ | Telephone | Orthopedic Surgery | Maykel Hutchins MD | Advice Only; Other | | 2018 | | | | (inform office) | +--------+ + + + + | 06/18/ | Office | Pain Medicine | Denys Sibley, | SACROILIITIS | | 2018 | Visit | | DO | (Primary Dx); | | | | | | Spondylosis [...] | | | | | | 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; 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 | +--------+ + + + + | 05/21/ | Orders Only | | Provider, | | | 2018 | | | Hemalatha, MD | | +--------+ + + + + [...] | | + + +--------+ + | Walterig hypertherm | Neg Hx | | | + + +--------+ + + +--------+ + + | Relation | Name | Status | Comments | + +--------+ + + | Brother | | | AL | | | | (Age | | [...] + | Blood Pressure | 132/58 | 08/04/20191137 PDT | + + + [...] Height | 154.9 cm (5' 1") | 08/03/2019725 PDT | + + + + | Body Mass Index | 21.66 | 08/03/2019725 PDT | + + + + Plan of Treatment +--------+---------+ + + + | Date | Type | Specialty | Care Team | Description | +--------+---------+ + + + | 08/16/ | Office | Orthopedic Surgery | Gabi Guzman | | | 2018 | Visit | | [address] | | | | | [address] | | | | | | [place] [address] | | | | | | [phone] | | | | | | | | +--------+---------+ + + + | 08/16/ | Office | Pain Medicine | Denys Sibley, | | | 2019 | Visit | | DO [address] | | | | | | [address] [place] | | | | | | [address] | | | | | | | [...] | | 03/04/ | [id number] | | [id number]: Qty: 1 | ogical | Spine | MEDICAL - | | 2020 | S | | on 08/03/2019 by Cuong, | | Lumbar | STJU | | | /[id number] | | MD Maykel | Stimul | | | | | 444 | | | ator | | | | | [...] | | 11/23/ | [id number] | | [id number]: Qty: 1 on | | | MEDICAL - | | 2020 | S | | 03/28/2019 by Sonja, | | | STJU | | | /[id number] | | DO Alfredo | | | | | | 330 / | + +--------+--------+ +--------+--------+--------+ | [employer]: | | N/A: | ST CASEY | | 01/15/ | 3660 | | Qty: 1 on 08/03/2019 by Cuong, | | Spine | MEDICAL - | | 2020 | /[id number] | | MD Maykel | | Lumbar | STJU | | | 6.1 | | | | | | | | /NA [...] | + +--------+ + + + | LINSEY Rivera ARM | Routin | 08/03/2019 | | [...] | + +--------+ + + + | ANE GUILLERMO NOTE | Routin | 08/03/2019 | | Results for this | | | e | 9:52 PDT | | procedure are in the [...] | | | Needs | | | CHRONIC CARE NURSE | | | reques | | | [...] section. | + +--------+ +---+ + | XR CHEST PA AND | Routin | 07/18/2019 | | Results for this | | LATERAL | e | 15:24 PDT | | procedure are in the | | | | | | results section. | + +--------+ +---+ + | TYPE AND SCREEN | WU | 07/18/2019 | | Results for this | | | | 14:30 PDT | | procedure are in the | | | | | | results section. | + +--------+ +---+ + | MRSA NAAT | Routin | 07/18/2019 | | Results for this | | | e | 14:27 PDT | | procedure are in the | | | | | | results section. | + +--------+ +---+ + | PROTIME INR | Timed | 07/18/2019 | | Results for this | | | | 14:26 PDT | | procedure are in the | | | | | | results section. | + +--------+ +---+ + | PTT | Timed | 07/18/2019 | | Results for this | | | | 14:26 PDT | | procedure are in the | | | | | | results section. | + +--------+ +---+ + | COMPREHENSIVE | Timed | 07/18/2019 | | Results for this | | METABOLIC PANEL | | 14:26 PDT | | procedure are in the | | | | | | results section. | + +--------+ +---+ + | CBC WITH | Timed | 07/18/2019 | | Results for this | | DIFFERENTIAL | | 14:26 PDT | | procedure are in the | | | | | | results section. | + +--------+ +---+ + | ECG 12 LEAD | Timed | 07/18/2019 | | Results for this | | | | 14:24 PDT | | procedure are in the | | | | | | results section. | + +--------+ +---+ + from Last 3 Months Results POC Glucose (08/03/2019 20:39 PDT)Only the most recent of 7 results within the time period is included. + + + + + + | Component | Value | Ref Range | Performed | Pathologist | | | | | At | Signature | + + + + + + | Glucose, | 92Comment: Testing | 65 - 99 mg/dL | [facility] | | | POC | performed at [facility];[address] | | LABORATORY | | | | [address];[place], [place] | | | | | | [address] | | | | + + + + + + + + | Specimen | + + | | + + + + + + + | Performing | Address | City/State/Zipcode | Phone Number | | Organization | | | | + + + + + | [facility] | [address] | [place] [address] | [phone] | + + + + + FL Kirt (08/03/2019 10:27 PDT) + + | Specimen [...] Spinal cord stimulator T9/10 FINDINGS: Fluoro Time: | | | .17 minute(s). Number of images: 1 Air Kerma: 1.80 mGy | | | Surgical hardware overlying the spine. | | + + + + + | Procedure Note | + + | Junior, Rad Results In - 08/03/2019 1105 PDT | [...] | | | + +---------+ + + Airway (08/03/2019 9:52 PDT) + + + [...] CRNA - 08/03/2019 0952 PDT Anesthesia Airway Udforwgmw26/4/2019 | | 9:33Preprocedure check: patient identified, oxygen, [...] and carbon dioxide | | detectionPerforming provider: Jonathan Valentine see intraoperative grid for any | | [...] any additional medication documentation. | + + Type and Screen (08/03/2019 7:46 PDT)Only the most recent of 2 results within the time per iod is included. + + + + + + | [...] + + + | BB BAND | [id number] | | [facility] | | | | | | LABORATORY | | + + + + + + | BB BAND | Testing performed at | | [facility] | | | | [facility];[address] | | LABORATORY | | | | [address]rzej;[place] [address] | | | | + + + + + + + + | Specimen | + + | Blood | + + + + + + + | Performing | Address | City/State/Zipcode | Phone Number | | Organization | | | | + + + + + | [facility] | [address] | [place] [address] | [phone] | + + + + + XR Chest PA and Lateral (07/18/2019 15:24 [...] by: Chester | | | Sj Caruso Sign Date/Time: 07/18/2019 4:58 PM | | [...] | + +---------+ + + MRSA NAAT (07/18/2019 14:27 PDT) [...] Result | NEGATIVEComment: Testing | MRSNEG | [facility] | | | | performed at [facility];[address] | | LABORATORY | | | | [address];[place] | | | | | | [address] | | | | + + + + + + + + | Specimen | + + | Tissue | + + + + + + + | Performing | Address | City/State/Zipcode | Phone Number | | Organization | | | | + + + + + | [facility] | [address] | [place] [address] | [phone] | + + + + + PTT (07/18/2019 14:26 PDT) + + + + + + | Component | Value | Ref Range | Performed | Pathologist | | | | | At | Signature | + + + + + + | PTT | 29Comment: Testing | 23 - 32 seconds | [facility] | | | | performed at [facility] | | LABORATORY | | | | [address];[place], [place] | | | | | | [address] | | | | + + + + + + + + | Specimen | + + | Blood | + + + + + + + | Performing | Address | City/State/Zipcode | Phone Number | | Organization | | | | + + + + + | [facility] | [address] | [place] [address] | [phone] | + + + + + Protime INR (07/18/2019 14:26 PDT) + + + + + + | Component | Value | Ref Range | Performed | Pathologist | | | | | At | Signature | + + + + + + | INR | 1.0Comment: REFERENCE | | [facility] | | | | RANGE:0.9 - | [...] | | | | | performed at [facility];[address];[place] | | | | | | [address] | | | | + + + + + + + + | Specimen | + + | Blood | + + + + + + + | Performing | Address | City/State/Zipcode | Phone Number | | Organization | | | | + + + + + | [facility] | [address] | [place] [address] | [phone] | + + + + + CBC [...] | | | | | [place] [address] | | | | + + + + + + + + | Specimen | + + | Blood | + + + + + + + | Performing | Address | City/State/Zipcode | Phone Number | | Organization | | | | + + + + + | [facility] | [address] | [place] [address] | [phone] | + + + + + Comprehensive [...] 20 | 10 - 65 U/L | [facility] | | | | | | LABORATORY [...] | | | | | | MDRD IDNC traceable | | | | | | equation.Testing | | | | | | performed at [facility], [address] | | | | | | [facility], | | | | | | [place] [address] | | | | + + + + + + + + | Specimen | + + | Blood | + + + + + + + | Performing | Address | City/State/Zipcode | Phone Number | | Organization | | | | + + + + + | [facility] | [address] | [place] [address] | [phone] | + + + + + ECG [...] MD | | | | | | (69) on 07/19/2019 | | | | | [...] +---------+--------+ | INDIVIDUAL ASSURANCE | INDIVI | [id number] | | | | Indemn | | [...] +--------+ +---------+--------+ | MEDICARE | MEDICA | [id number] | | [phone] | | Medica | | | RE | | 991-Pr | 5 | | re | | | PART A | | esent | | | | | | AND B | | | | | | + +--------+ +--------+ +---------+--------+ | MEDICARE | MEDICA | [id number] | | [phone] | | Medica | | | RE | | 991-Pr | 5 | | re | | | PART A | | esent | | | | | | AND B | | | | | | + +--------+ +--------+ +---------+--------+ | MEDICARE | MEDICA | [id number] | | [phone] | | Medica | | | RE | | 991-Pr | 5 | | re | | | PART A | | esent | | | | | | AND B | | | | | | + +--------+ +--------+ +---------+--------+ | MEDICARE | MEDICA | [id number] | | [phone] | | Medica | | | RE | | 991-Pr | 5 | | re | | | PART A | | esent | | | | | | AND B | | | | | | + +--------+ +--------+ +---------+--------+ | INDIVIDUAL ASSURANCE | INDIVI | [id number] | | | | Indemn | | [...] +---------+--------+ | INDIVIDUAL ASSURANCE | INDIVI | [id number] | | | | Indemn | | [...] +---------+--------+ | INDIVIDUAL ASSURANCE | INDIVI | [id number] | | | | Indemn | | [...] | 1945 | [phone] | [place] [address] | | | jose | | | 8 (Home) | | + +--------+ +--------+ + + | McintoshSkinnyXiong | Person | Self [birth year] | [address] | | mandeep Harshal | al/Fam | | 1945 | [phone] | [place] [address] | | | jose | | | 8 (Home) | | + +--------+ +--------+ + + | Ibeth Rubiou | Person | Self | [birth year] | [address] | | mandeep [place] | al/Fam | | 1945 | [phone] | [place] [address] | | | jose | | | 8 (Home) | | + +--------+ +--------+ + + | Ibeth Rubiou | Person | Self [birth year] | [address] | | mandeep Harshal | al/Fam | | 1945 | [phone] | [place] [address] | | | jose | | | 8 (Home) | | + +--------+ +--------+ + + Advance Directives Patient has advance care planning documents, and code status on file. For more information, please contact:[facility] [place] [address] + + + + + | Code Status | Date | Date | Comments | | | Activated | Inactivated | | + + + + + | Full Code | 08/03/2019 | 08/04/2019 | | | | 19:15 | 17:33 | | + + + + + + + + +---+ | | | | | + + + +---+ | Full Code | 08/03/2019 | 08/03/2019 | | | | 13:33 | 19:15 | | + + + +---+
--- OUTSIDE RECORDS SUMMARY | ~2019-08-09 | XMS | Encounter Summary ---
Demographics + + + | Address | [address] | | | [place] [address] | + + + | Home Phone | | + + + | Preferred Language | Unknown | + + + | Marital Status | | + + + | Baptist Affiliation | 1013 | + + + | Race | Unknown | + + + | Ethnic Group | Unknown | + + + Author + + + | Author | [facility] | | | and Priteshana | + + + | Organization | [facility] | | [...] Providers + +------+ + | Care Senior Specialist Name | Role | Phone | + +------+ + | Romy De La Paz MD | PCP | | + +------+ + Encounter Details +--------+ + + + + | Date | Type | Department | Care Team | Description | +--------+ + + + + | 07/18/ | Preadmit | [facility] | No, Physician | | | 2019 | Visit | CENTER PREAD[facility] | | | | | | CLINIC [address] | | | | | | [place], [place] | | | | | | [address] | | | | | | [phone] | | | +--------+ + + + [...] for the 07/18/19 encounter (Preadmit Visit) with [facility] PAS ROOM 5 Medication Sig Instructions Ascorbic [...] by elevating your feet Date Last Reviewed: 9049-1091 [employer]. [address] [place] [address]. All righ ts reserved. This information is [...] [address] | | | | | | [facility] [address] | | | | | | [place] [address] | | | | | | [phone] | | | | | | | | +--------+---------+ + + + | 08/16/ | Office | Pain Medicine | Denys Sibley, | | | 2019 | Visit | | DO [address] | | | | | | [address] [place] | | | | | | [address] | | | | | | | [...] LABORATORY | | | | Blvd;[place] [address] | | | | + + + + + + + + | Specimen | + + | Blood | + + + + + + + | Performing | Address | City/State/Zipcode | Phone Number | | Organization | | | | + + + + + | [facility] | [address] | [place] [address] | [phone] | + + + + + MRSA [...] [facility] | | | | performed at [facility] | | LABORATORY | | | | [address];[place], [place] | | | | | | [address] | | | | + + + + + + + + | Specimen | + + | Tissue | + + + + + + + | Performing | Address | City/State/Zipcode | Phone Number | | Organization | | | | + + + + + | [facility] | [address] | [place] [address] | [phone] | + + + + + Protime INR (07/18/2019 14:26 PDT) + + + + + + | Component | Value | Ref Range | Performed | Pathologist | | | | | At | Signature | + + + + + + | INR | 1.0Comment: REFERENCE | | [facility] | | | | RANGE:0.9 - | [...] | | | | | performed at [facility];[address] | [address];[place] | | | | | | [address] | | | | + + + + + + + + | Specimen | + + | Blood | + + + + + + + | Performing | Address | City/State/Zipcode | Phone Number | | Organization | | | | + + + + + | [facility] | [address] | [place] [address] | [phone] | + + + + + PTT (07/18/2019 14:26 PDT) + + + + + + | Component | Value | Ref Range | Performed | Pathologist | | | | | At | Signature | + + + + + + | PTT | 29Comment: Testing | 23 - 32 seconds | [facility] | | | | performed at [facility];[address] | | LABORATORY | | | | [address];[place] | | | | | | [address] | | | | + + + + + + + + | Specimen | + + | Blood | + + + + + + + | Performing | Address | City/State/Zipcode | Phone Number | | Organization | | | | + + + + + | [facility] | [address] | [place] [address] | [phone] | + + + + + Comprehensive [...] | | | | | performed at [facility], [address] | | | | | | [facility], | | | | | | [place] [address] | | | | + + + + + + + + | Specimen | + + | Blood | + + + + + + + | Performing | Address | City/State/Zipcode | Phone Number | | Organization | | | | + + + + + | [facility] | [address] | [place] [address] | [phone] | + + + + + CBC [...] | | | Absolute | performed at [facility], [address] | [address] | LABORATORY | | | | [address], | | | | | | [place] [address] | | | | + + + + + + + + | Specimen | + + | Blood | + + + + + + + | Performing | Address | City/State/Zipcode | Phone Number | | Organization | | | | + + + + + | [facility] | [address] | [place] [address] | [phone] | + + + + + ECG [...]
--- OUTSIDE RECORDS SUMMARY | ~2019-08-09 | XMS | Encounter Summary ---
Demographics + + + | Address | [address] | | | [place] [address] | + + + | Home Phone | | + + + | Preferred Language | Unknown | + + + | Marital Status | | + + + | Spiritism Affiliation | 1013 | + + + | Race | Unknown | + + + | Ethnic Group | Unknown | + + + Author + + + | Author | [facility] | | | and Priteshana | + + + | Organization | [facility] | | [...] Team Providers + +------+ + | Care Analyst Programmer Name | Role | Phone | [...] + + | 07/05/ | Telephone | [facility] | Maykel Hutchins MD | Advice Only; Other | | 2019 | | [facility] | [address] | (inform office) | | | | ORTHOPEDIC SPINE | HAYLEY SANCHEZ | | | | | [address] [place] | [place] [address] | | | | | [place] | [phone] | | | | | [address] | | | | | | [phone] | | | +--------+ + + + [...] | | | | | | [place] [address] | | | | | | [phone] | | | | | | | | +--------+---------+ + + + | 08/16/ | Office | Pain Medicine | Denys Sibley, | | | 2018 | Visit | | DO [address] | | | | | | [address] [place] | | | | | | [address] | | | | | | | | +--------+---------+ + + + + +--------+ + + | Name | Priori | Associated Diagnoses | Order Schedule | | | ty | | | + +--------+ + + | XR Thoracic Spine 3 Vw | Routin | Chronic low back | Expected: | | | e | pain with sciatica, | 07/05/2019, Expires: | | | | sciatica laterality | 07/05/2020 | | | | unspecified, | | | | | unspecified back | | | | | pain laterality | | + +--------+ + + | XR Lumbar Spine 4 + Vw | Routin | Right lumbar | Expected: | | | e | radiculopathy | 07/05/2019, Expires: | | | | | 07/05/2020 | + +--------+ + + documented as [...]
--- OUTSIDE RECORDS SUMMARY | ~2019-08-09 | XMS | Encounter Summary ---
Demographics + + + | Address | [address] | | | [place] [address] | + + + | Home Phone [...] Author + + + | Author | [facility] | + + + | Organization | [facility] | + + + | Address | Unknown | + + + | Phone | Unavailable | + + + Support + + +---------+ + | Name | Relationship | Address | Phone | + + +---------+ + | Royce Menchaca | ECON | Unknown | | + + +---------+ + Care Team Providers + +------+ + | Care Rail Car Mechanic Name | Role | Phone | + +------+ + | Miquel Calhoun MD | PCP | | + +------+ + Encounter Details +--------+ + + + + | Date | Type | Department | Care Team | Description | +--------+ + + + + | 10/18/ | Telephone | [facility] | Khushbu Cortez, | | | 2012 | | [facility] | MECHANICAL TECHNICAL SERVICE SPECIALIST [place], [place] | | | | | Riddhi [address] | [address] | | | | | [address] | | | | | | Aravind Hannon | | | | | | [place], [place] | | | | | | [address] | | | | | | [phone] | | | +--------+ + + + [...]
--- OUTSIDE RECORDS SUMMARY | ~2019-08-09 | XMS | Encounter Summary ---
Demographics + + + | Address | [address] | | | [place] [address] | + + + | Home Phone | | + + + | Preferred Language | Unknown | + + + | Marital Status | Single | + + + | Islam Affiliation | NON | + + + | Race | White | + + + | Ethnic Group | Not or | + + + Author + + + | Author | [facility] | + + + | Organization | [facility] | + + + | Address | Unknown | + + + | Phone | Unavailable | + + + Support + + +---------+ + | Name | Relationship | Address | Phone | + + +---------+ + | Royce Menchaca | ECON | Unknown | | + + +---------+ + Care Team Providers + +------+ + | Care Office Equipment Technician Name | Role | Phone | [...] | Chest | Referring | [place] [address] | | | | | pressure | Provider Per | [address] | | | | | Procedures | Patient NO | [address] | | | | | [facility] | REFERRING | [place], [place] | | | | | PATIENT | PROVIDER PER | [address] Phone: | | | | | LEVEL V [facility] | PT | [phone] | | | | | OFFICE/OUTPT | | Fax: | | | | | | | [phone] | | | | | VISIT,EST,LE | | | | | | | GINA III [facility] | | | | | | | OFFICE/OUTPT | | | | | | | | | | | | | | VISIT,EST,LE | | | | | | | VL IV [facility] | | | | | | | [...] | | 2016 | Visit | at [facility] [address] | [address] | unspecified type | | | | Abbe Soto Mailcode: | [address] [place], | (Primary Dx); | | | | [address] | [place] [address] | Palpitations | | | | Health [facility] Healing, | [phone] | | | | | [facility] | | | | | | Floor [place], [place] | | | | | | [address] | | | | | | [phone] | | | +--------+---------+ + + + [...] per Dr. Fuchs's note. Tiago Blake DO Silk Washing Machine Operator Clinical ribbon blocker/ Division of Cardiovascular Medicine Airam Nicole Md - 03/09/2016 3:27 PM PDT [facility] General Cardiology New Patient Evaluation Patient ID: [...] ED. She was then transf erred to [facility] in [facility] where she was put into the [...] couple of weeks. She comes to [facility] today because she wants a second [...] LIPID LAB | [id number] | [place], [place] | | | | [place] | [address] | | + + + + + documented in this encounter Visit Diagnoses + + | Diagnosis | + + | Chest pain, unspecified type - Primary | + + | Palpitations | + + documented in this encounter
--- OUTSIDE RECORDS SUMMARY | ~2019-08-09 | XMS | Encounter Summary ---
Demographics + + + | Address | [address] | | | [place] [address] | + + + | Home Phone | | + + + | Preferred Language | Unknown | + + + | Marital Status | Single | + + + | Anglican Affiliation | NON | + + + [...] Team Providers + +------+ + | Care Vp Customer Development Name | Role | Phone | + [...] | | 2016 | Encounter | at [facility] [address] | [address] | havea problem with | | | | [address] Mailcode: | [address] [place], | my heart. | | | | [address] [place] [address] | [place] [address] | | | | | Health [facility] Healing, | [phone] | | | | | | | | | | | Floor [place], [place] | | | | | | [address] | | | | | | [phone] | | | +--------+ + + + [...]
--- OUTSIDE RECORDS SUMMARY | ~2019-08-09 | XMS | Encounter Summary ---
Demographics + + + | Address | [address] | | | [place] [address] | + + + | Home Phone | | + + + | Preferred Language | Unknown | + + + | Marital Status | Single | + + + | Lutheran Affiliation | NON | + + + [...] Team Providers + +------+ + | Care Dance Costume Designer Name | Role | Phone | + +------+ + | Oxana Nye | PCP | Unavailable | + +------+ + Encounter Details +--------+ + + + + | Date | Type | Department | Care Team | Description | +--------+ + + + + | 10/04/ | MyChart | Cardiology General | | Appointment Location | | 2015 | Encounter | at [facility] [address] | | Change: Effective | | | | [address] Mailcode: | | October 31 | | | | [facility] | | | | | | Health and Healing, | | | | | | Building | | | | | | Floor [place], [place] | | | | | | [address] | | | | | | [phone] | | | +--------+ + + + [...]
--- OUTSIDE RECORDS SUMMARY | ~2019-08-09 | XMS | Encounter Summary ---
Demographics + + + | Address | [address] | | | [place] [address] | + + + | Home Phone [...] | Author | [facility] [employer] (Historical as of | | | 06-16-19) | + + + | Organization | [facility] (Historical as of | | | [...] Team Providers + +------+ + | Care Full Fashioned Garment Knitter Name | Role | Phone | + [...] + + | 05/25/ | Telephone | [facility] | Denys Sibley, | Medication Question | | 2019 | | [facility] | DO [address] | | | | | [address] | [place], [place] | | | | | [place] | [address] | | | | | [address] | | | | | | [phone] | | | +--------+ + + + [...] [address] | | | | | | [address] | | | | | | [place] [address] | | | | | | [phone] | | | | | | | | +--------+---------+ + + + as of this encounter Visit Diagnoses Not on filein this encounter"
--- OUTSIDE RECORDS SUMMARY | ~2019-08-09 | XMS | Encounter Summary ---
Demographics + + + | Address | [address] | | | [place] [address] | + + + | Home Phone [...] Providers + +------+ + | Care Manager Alliance Name | Role | Phone | + [...] as of this encounter Discharge Summaries Interface, Bait Maker In - 08/03/2006 2:03 AM PDT [id number]/ [id number] ROSANA Suarez [id number] Admission Date: 06/26/2006 Discharge Date: 06/30/2006 Staff [...] up with her primary care doctor in [place] to get lab followup within the next [...] psychiatrist, Dr. Pham; his phone number is [phone]. She is to make a followup appointment with him within the next week. The patient is also to follow up with Dr. Kel Young, he is located as well in [place], [place], and is associated with [facility]. She is to follow up with him for repeat electrolytes including potassium, magnesium, and phosphorus within the next several days. Monroe Disla M.D. Sherita Madrid M.D., M.P.H. / [id number] / [id number] / [phone] / [phone] cc: * Dr. Pham [facility], [place] FAX: [phone] Kel Young M.D. Electronically signed by Sherita Madrid 08-02-2006 11:01:13 AM documented i n this encounter Plan of Treatment Not on filedocumented as of this encounter Visit Diagnoses Not on filedocumented in this encounter"
--- OUTSIDE RECORDS SUMMARY | ~2019-08-09 | XMS | Encounter Summary ---
Demographics + + + | Address | [address] | | | [place] [address] | + + + | Home Phone [...] Team Providers + +------+ + | Care Unix Administrator Name | Role | Phone | + +------+ + | Oxana Nye | PCP | Unavailable | + +------+ + Encounter Details +--------+ + + + + | Date | Type | Department | Care Team | Description | +--------+ + + + + | 08/30/ | MyChart | Cardiology General | Airam Fuchs MD | RE: My prescription | | 2016 | Encounter | at [facility] [address] | [address] | [place] | | | | [address] Mailcode: | [address] [place], | | | | | [address] | [place] [address] | | | | | Health and Healing, | [phone] | | | | | | | | | | | Floor [place], [place] | | | | | | [address] | | | | | | [phone] | | | +--------+ + + + [...]
--- OUTSIDE RECORDS SUMMARY | ~2019-08-09 | XMS | Encounter Summary ---
Demographics + + + | Address | [address] | | | [place] [address] | + + + | Home Phone [...] Author | [facility] [employer] (Historical as of | | | 06-16-19) | + + + | Organization | [facility] (Historical as of | | | 06-16-19) [...] Team Providers + +------+ + | Care Molding Fitter Name | Role | Phone | + +------+ + | Romy De La Paz MD | PCP | | + +------+ + Encounter Details +--------+ + + + + | Date | Type | Department | Care Team | Description | +--------+ + + + + | 08/03/ | Procedure | [facility] | | | | 2019 | Pass | Medical Center | | | | | | Operating Room [address] | | | | | | [address] [facility] | | | | | | [place] [address] | | | | | | [phone] | | | +--------+ + + + [...] [address] | | | | | | [facility] [place] [place] [address] | | | | | | [phone] | | | | | | | | +--------+---------+ + + + as of this encounter Visit Diagnoses Not on filein this encounter"
--- OUTSIDE RECORDS SUMMARY | ~2019-08-09 | XMS | Clinical Summary ---
Demographics + + + | Address | [address] | | | [place] [address] | + + + | Home Phone [...] Providers + +------+ + | Care Hand Ii Thermal Cutter Name | Role | Phone | [...] | | 19 | | | | terminal gauger current | Responsiveness (May | | | [...] Overview: Added automatically from request for surgery [id number] | + + + + + | Spondylosis without myelopathy or radiculopathy, lumbosacral | 03/20/2019 | | region | | + + + + + | Overview: Added automatically from request for surgery [id number] | + + + + + | Chronic bilateral low back pain without sciatica | 03/20/2019 | + + + + + | Overview: Added automatically from request for surgery [id number] | + + + + + | Intervertebral disc disorders with radiculopathy, lumbosacral | 02/25/2019 | | region | | + + + + + | Overview: Added automatically from request for surgery [id number] | + + + + + | Chronic low back pain with sciatica | 02/25/2019 | + + + + + | Overview: Added automatically from request for surgery [id number] | + + + + + | Lumbar region somatic dysfunction | 02/25/2019 | + + + + + | Overview: Added automatically from request for surgery [id number] | + + + + + | Strain of lumbar region | 02/25/2019 | + + + + + | Overview: Added automatically from request for surgery [id number] | + + + + + | Spinal stenosis of lumbosacral region | 02/25/2019 | + + + + + | Overview: Added automatically from request for surgery [id number] | + + + + + | [...] Overview: Added automatically from request for surgery [id number] | | Problem List Tile Inspector Utility | + + + + + [...] + +---+ + + | Overview: LOUISE [id number] Decision | + + + +---+ | [...] | | | | | | pain; terminal gauger | | | | | | current [...] + + | Brother | | | [place] | | | | (Age | | [...] [address] | | | | | | [address] | | | | | | [place] [address] | | | | | | [phone] | | | | | | | | +--------+---------+ + + + | 08/16/ | Office | Pain Medicine | Denys Sibley, | | | 2019 | Visit | | DO [address] | | | | | | [address] [place] | | | | | | [address] | | | | | | | [...] | | 03/04/ | 3228AN | | [id number]: Qty: 1 | ogical | Spine | MEDICAL - | | 2020 | S | | on 08/03/2019 by Cuong, | | Lumbar | STJU | | | /[id number] | | MD Maykel | Stimul | [...] | | 11/23/ | 3186AN | | [id number]: Qty: 1 on | | | MEDICAL - | | 2020 | S | | 03/28/2019 by Sonja, | | | STJU | | | /[id number] | | DO Alfredo | | | [...] | | | Needs | | | INDUSTRIAL STAFF NURSE | | | reques | | [...] [facility];[address] | | LABORATORY | | | | [address];[place], [place] | | | | | | [address] | | | | + + + + + + + + | Specimen | + + | | + + + + + + + | Performing | Address | City/State/Zipcode | Phone Number | | Organization | | | | + + + + + | [facility] | [address] | [place] [address] | [phone] | + + + + + [place] [...] CRNA - 08/03/2019 [id number] PDT Anesthesia Airway Sansqssll11/4/2019 | | 9:33Preprocedure check: patient identified, oxygen, [...] + + + | BB BAND | [id number] | | [facility] | | | | | | LABORATORY | | + + + + + + | BB BAND | Testing performed at | | [facility] | | | | [facility];[address] | | LABORATORY | | | | Andrzej;[place] [address] | | | | + + + + + + + + | Specimen | + + | Blood | + + + + + + + | Performing | Address | City/State/Zipcode | Phone Number | | Organization | | | | + + + + + | [facility] | [address] | [place] [address] | [phone] | + + + + + XR [...] [facility];[address] | | LABORATORY | | | | [address];[place] | | | | | | [address] | | | | + + + + + + + + | Specimen | + + | Tissue | + + + + + + + | Performing | Address | City/State/Zipcode | Phone Number | | Organization | | | | + + + + + | [facility] | [address] | [place] [address] | [phone] | + + + + + PTT [...] | performed at [facility] | | LABORATORY | | | | [address];[place], [place] | | | | | | [address] | | | | + + + + + + + + | Specimen | + + | Blood | + + + + + + + | Performing | Address | City/State/Zipcode | Phone Number | | Organization | | | | + + + + + | [facility] | [address] | [place] [address] | [phone] | + + + + + Protime INR (07/18/2019 14:26 PDT) + + + + + + | Component | Value | Ref Range | Performed | Pathologist | | | | | At | Signature | + + + + + + | INR | 1.0Comment: REFERENCE | | [facility] | | | | RANGE:0.9 - | [...] [place];[address] | | | | | [address];[place] | | | | | | [address] | | | | + + + + + + + + | Specimen | + + | Blood | + + + + + + + | Performing | Address | City/State/Zipcode | Phone Number | | Organization | | | | + + + + + | [facility] | [address] | [place] [address] | [phone] | + + + + + CBC [...] | | | | | [place] [address] | | | | + + + + + + + + | Specimen | + + | Blood | + + + + + + + | Performing | Address | City/State/Zipcode | Phone Number | | Organization | | | | + + + + + | [facility] | [address] | [place] [address] | [phone] | + + + + + Comprehensive [...] | | | | | | MDRD IDMD traceable | | | | | | equation.Testing | | | | | | performed at [facility], [address] | | | | | | [facility], | | | | | | [place] [address] | | | | + + + + + + + + | Specimen | + + | Blood | + + + + + + + | Performing | Address | City/State/Zipcode | Phone Number | | Organization | | | | + + + + + | [facility] | [address] | [place] [address] | [phone] | + + + + + ECG [...] +---------+--------+ | INDIVIDUAL ASSURANCE | INDIVI | [id number] | | | | Indemn | | [...] +--------+ +---------+--------+ | MEDICARE | MEDICA | [id number] | | [phone] | | Medica | | | RE | | 991-Pr | 5 | | re | | | PART A | | esent | | | | | | AND B | | | | | | + +--------+ +--------+ +---------+--------+ | MEDICARE | MEDICA | [id number] | | [phone] | | Medica | | | RE | | 991-Pr | 5 | | re | | | PART A | | esent | | | | | | AND B | | | | | | + +--------+ +--------+ +---------+--------+ | MEDICARE | MEDICA | [id number] | | [phone] | | Medica | | | RE | | 991-Pr | 5 | | re | | | PART A | | esent | | | | | | AND B | | | | | | + +--------+ +--------+ +---------+--------+ | MEDICARE | MEDICA | [id number] | | [phone] | | Medica | | | RE | | 991-Pr | 5 | | re | | | PART A | | esent | | | | | | AND B | | | | | | + +--------+ +--------+ +---------+--------+ | INDIVIDUAL ASSURANCE | INDIVI | [id number] | | | | Indemn | | [...] +---------+--------+ | INDIVIDUAL ASSURANCE | INDIVI | [id number] | | | | Indemn | | [...] +---------+--------+ | INDIVIDUAL ASSURANCE | INDIVI | [id number] | | | | Indemn | | [...] | 1945 | [phone] | [place] [address] | | | jose | | | 8 (Home) | | + +--------+ +--------+ + + | McitnoshSkinnyXiong | Person | Self [birth year] | [address] | | mandeep H[place] | al/Fam | | 1945 | [phone] | [place] [address] | | | jose | | | 8 (Home) | | + +--------+ +--------+ + + | Ibeth Rubiou | Person | Self | [birth year] | [address] | | mandeep [place] | al/Fam | | 1945 | [phone] | [place] [address] | | | jose | | | 8 (Home) | | + +--------+ +--------+ + + | Ibeth Rubiou | Person | Self | [birth year] | [address] | | [place]eep [place] | al/Fam | | 1945 | [phone] | [place] [address] | | | jose | | | 8 (Home) | | + +--------+ +--------+ + + Advance Directives Patient has advance care planning documents, and code status on file. For more information, please contact:[facility] [place] [address] + + + + + | Code [...]
--- OUTSIDE RECORDS SUMMARY | ~2019-08-09 | XMS | Encounter Summary ---
Demographics + + + | Address | [address] | | | [place] [address] | + + + | Home Phone [...] + + | Author | [facility] (Historical as of | | | 06-16-19) | + + + | Organization | [facility] (Historical as of | | [...] Team Providers + +------+ + | Care Cake Press Operator Name | Role | Phone | + +------+ + | Romy De La Paz MD | PCP | | + +------+ + Encounter Details +--------+ + + + + | Date | Type | Department | Care Team | Description | +--------+ + + + + | 08/03/ | Hospital | [facility] | Maykel Hutchins MD | Postlaminectomy | | 2019 | 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
--- OUTSIDE RECORDS SUMMARY | ~2019-08-09 | XMS | Encounter Summary ---
Demographics + + + | Address | [address] | | | [place] [address] | + + + | Home Phone [...] Team Providers + +------+ + | Care Ordained Minister Name | Role | Phone | + +------+ + | Miquel Calhoun MD | PCP | | + +------+ + Encounter Details +--------+ + + + + | Date | Type | Department | Care Team | Description | +--------+ + + + + | 11/12/ | Telephone | [facility] | Khushbu Cortez, | | | 2013 | | [facility] | THERMODYNAMIC PHYSICIST [place], [place] | | | | | Riddhi [address] | [address] | | | | | [address] | | | | | | [address] | | | | | | [place], [place] | | | | | | [address] | | | | | | [phone] | | | +--------+ + + + [...]
--- OUTSIDE RECORDS SUMMARY | ~2019-08-09 | XMS | Encounter Summary ---
Demographics + + + | Address | [address] | | | [place] [address] | + + + | Home Phone [...] Team Providers + +------+ + | Care Control Tower Operator Name | Role | Phone | [...] | | | | | bilateral | [place], [place] | | | | | | low back | [address] | | | | | | pain with | Phone: | | | | | | right-sided | [phone] | | | | | | sciatica | Fax: | | | | | | | [phone] | | + + + + + [...] + + | 08/03/ | Hospital | [facility] | Maykel Hutchins MD | BACK PAIN, LUMBAR | | 2019 - | Encounter | [facility] | [address] | (Primary Dx); | | | | CARE FLOOR [address] | [place], | Chronic bilateral | | 08/04/ | | [address] | [place] [address] | low back pain with | | 2019 | | [place] | [phone] | right-sided sciatica | | | | [address] | | | | | | [phone] | | | +--------+ + + + [...] by elevating your feet Date Last Reviewed: 4499-2186 [employer]. [address] [place] [address]. All righ ts reserved. This information is not intended as a substitute for professional medical care. Always follow your healthcare professional's instructions. Acetaminophen; Hydrocodone tablets or capsules Brand Names: Anexsia, Lorcet, Lorcet HD, Lorcet Plus, Lortab, [place], Verdrocet, Vicodin, Vi codin ES, Vicodin HP, [...] information carefully each time. Talk to your slot floor person regarding the use of this medicine in children. Special care may be needed. What side effects may I notice from receiving this medicine? Side effects that you should report to your doctor or health pet care technician as soon as p ossible: allergic reactions [...] attention (report to your doctor or health pet care technician if they continue or are bothersome): constipation [...] to an official disposal site. Contact the [facility] at [phone] or your [facility] government to find a site. If you [...] this medicine? Tell your doctor or health pet care technician if your pain does not go away, [...] not stand or sit up quickly, trev syke if you are an older patient. This [...] Decreased | | | | | | intermission coordinator current | Responsiveness (May | | | [...] Amador Faria MSW - 08/04/2019 1412 PDTCase land development manager sent out Home Health order to [...] 100 mg Oral BID PRN Julien Guzman MAMMALOGIST HYDROcodone-acetaminophen (NORCO) 10-325 mg per tablet 1 tablet 1 tablet Oral Q4H PRN Julien Guzman, MAMMALOGIST 1 tablet at 08/04/19 0502 HYDROmorphone (DILAUDID) injection 0.2-0.4 mg 0.2-0.4 mg Intravenous Q1H PRN Maykel ortiz MD 0.2 mg at 08/03/19 1700 methocarbamol (ROBAXIN) tablet 1,500 mg 1,500 mg Oral Q6H PRN Julien Guzman MAMMALOGIST ondansetron (ZOFRAN ODT) disintegrating tablet 4 mg 4 mg Oral Q6H PRN Julien Guzman MAMMALOGIST rOPINIRole (REQUIP) tablet 4 mg 4 mg Oral 4x Daily PRN Maykel Hutchins MD senna (SENOKOT) tablet 8.6 mg 8.6 mg Oral BID PRN Julien Guzman, MAMMALOGIST sodium chloride 0.45% (1/2 NS) infusion Intravenous Continuous Maykel Hutchins MD 100 mL /hr at 08/03/19 1342 950 mL at 08/03/19 1342 sodium chloride 0.45% (1/2 NS) infusion Intravenous Continuous Julien Guzman MAMMALOGIST 100 m L/hr at 08/04/19 0057 Allergies [...] | | | | | | [place] [address] | | | | | | [phone] | | | | | | | | +--------+---------+ + + + | 08/16/ | Office | Pain Medicine | Denys Sibley, | | | 2018 | Visit | | [address] | | | | | | [place] | | | | | | [address] | | | | | | | [...] | | | Needs | | | DRYWALL FINISHER FOREMAN | | | reques | | | [...] Testing | 65 - 99 mg/dL | [facility] | | | POC | performed at [facility];[address] | | LABORATORY | | | | [address];[place] | | | | | | [address] | | | | + + + + + + + + | Specimen | + + | | + + + + + + + | Performing | Address | City/State/Zipcode | Phone Number | | Organization | | | | + + + + + | [facility] | [address] | [place] [address] | [phone] | + + + + + POC Glucose (08/03/2019 16:15 PDT) + + + + + + | Component | Value | Ref Range | Performed | Pathologist | | | | | At | Signature | + + + + + + | Glucose, | 99Comment: Testing | 65 - 99 mg/dL | [facility] | | | POC | performed at [facility];[address] | | LABORATORY | | | | [address]nel[address];[place], [place] | | | | | | [address] | | | | + + + + + + + + | Specimen | + + | | + + + + + + + | Performing | Address | City/State/Zipcode | Phone Number | | Organization | | | | + + + + + | [facility] | [address] | [place] [address] | [phone] | + + + + + POC Glucose (08/03/2019 13:08 PDT) + + + + + + | Component | Value | Ref Range | Performed | Pathologist | | | | | At | Signature | + + + + + + | Glucose, | 107 (H)Comment: Testing | 65 - 99 mg/dL | [facility] | | | POC | performed at [facility];[address] | | LABORATORY | | | | [address];[place] | | | | | | [address] | | | | + + + + + + + + | Specimen | + + | | + + + + + + + | Performing | Address | City/State/Zipcode | Phone Number | | Organization | | | | + + + + + | [facility] | [address] | [place] [address] | [phone] | + + + + + POC Glucose (08/03/2019 11:05 PDT) + + + + + + | Component | Value | Ref Range | Performed | Pathologist | | | | | At | Signature | + + + + + + | Glucose, | 108 (H)Comment: Testing | 65 - 99 mg/dL | [facility] | | | POC | performed at [facility];[address] | | LABORATORY | | | | [address];[place] | | | | | | [address] | | | | + + + + + + + + | Specimen | + + | | + + + + + + + | Performing | Address | City/State/Zipcode | Phone Number | | Organization | | | | + + + + + | [facility] | [address] | [place] [address] | [phone] | + + + + + LINSEY [...] Testing | 65 - 99 mg/dL | [facility] | | | POC | performed at [facility];[address] | | LABORATORY | | | | [address];[place] | | | | | | [address] | | | | + + + + + + + + | Specimen | + + | | + + + + + + + | Performing | Address | City/State/Zipcode | Phone Number | | Organization | | | | + + + + + | [facility] | [address] | [place] [address] | [phone] | + + + + + POC Glucose (08/03/2019 9:14 PDT) + + + + + + | Component | Value | Ref Range | Performed | Pathologist | | | | | At | Signature | + + + + + + | Glucose, | 80Comment: Testing | 65 - 99 mg/dL | [facility] | | | POC | performed at [facility];[address] | | LABORATORY | | | | [address];[place] | | | | | | [address] | | | | + + + + + + + + | Specimen | + + | | + + + + + + + | Performing | Address | City/State/Zipcode | Phone Number | | Organization | | | | + + + + + | [facility] | [address] | [place] [address] | [phone] | + + + + + Type [...] + + + | BB BAND | [id number] | | [facility] | | | | | | LABORATORY | | + + + + + + | BB BAND | Testing performed at | | [facility] | | | | [facility] | | LABORATORY | | | | [address];[place] [address] | | | | + + + + + + + + | Specimen | + + | Blood | + + + + + + + | Performing | Address | City/State/Zipcode | Phone Number | | Organization | | | | + + + + + | [facility] | [address] | [place] [address] | [phone] | + + + + + POC Glucose (08/03/2019 7:23 PDT) + + + + + + | Component | Value | Ref Range | Performed | Pathologist | | | | | At | Signature | + + + + + + | Glucose, | 77Comment: Testing | 65 - 99 mg/dL | [facility] | | | POC | performed at [facility];[address] | | LABORATORY | | | | [address];[place] | | | | | | [address] | | | | + + + + + + + + | Specimen | + + | | + + + + + + + | Performing | Address | City/State/Zipcode | Phone Number | | Organization | | | | + + + + + | [facility] | [address] | [place] [address] | [phone] | + + + + + documented [...] | | | | | | longer, [id number]-[id number] use of | | | | | [...] | | | | | | | hnywab-xiz-[id number] use of at least | | | [...]
--- OUTSIDE RECORDS SUMMARY | ~2019-08-09 | XMS | Encounter Summary ---
Demographics + + + | Address | [address] | | | [place] [address] | + + + | Home Phone | | + + + | Preferred Language | Unknown | + + + | Marital Status | Single | + + + | Worship Affiliation | NON | + + + [...] Team Providers + +------+ + | Care Animation Camera Operator Name | Role | Phone | [...] | | 2016 | Encounter | at [facility] [address] | [address] | test results | | | | [place] Mailcode: | [address] [place], | | | | | [address] | [place] [address] | | | | | Health [facility] Healing, | [phone] | | | | | | | | | | | Floor [place], [place] | | | | | | [address] | | | | | | [phone] | | | +--------+ + + + [...]
--- OUTSIDE RECORDS SUMMARY | ~2019-08-09 | XMS | Encounter Summary ---
Demographics + + + | Address | [address] | | | [place] [address] | + + + | Home Phone [...] + + | Author | [facility] (Historical as of | | | 06-16-19) | + + + | Organization | [facility] (Historical as of | | | [...] Team Providers + +------+ + | Care House Painter Name | Role | Phone | + +------+ + | Romy De La Paz MD | PCP | | + +------+ + Encounter Details +--------+ + + + + | Date | Type | Department | Care Team | Description | +--------+ + + + + | 08/03/ | Hospital | [facility] | Maykel Hutchins MD | Postlaminectomy | | 2019 | Encounter | [facility] | [address] | syndrome, thoracic | | | | Operating Room [address] | [place] [address] | region; | | | | [address] | [phone] | Radiculopathy of | | | | [place] [address] | | thoracolumbar | | | | [phone] | | region; | | | | [...] [address] | | | | | | [place] [address] | | | | | | [phone] | | | | | | | [...]
--- OUTSIDE RECORDS SUMMARY | ~2019-08-09 | XMS | Encounter Summary ---
Demographics + + + | Address | [address] | | | [place] [address] | + + + | Home Phone [...] + | Author | [facility] (Historical as of | | | 06-16-19) | + + + | Organization | [facility] (Historical as of | | [...] Team Providers + +------+ + | Care Contact Center Representative Name | Role | Phone | + +------+ + | Romy De La Paz MD | PCP | | + +------+ + Encounter Details +--------+ + + + + | Date | Type | Department | Care Team | Description | +--------+ + + + + | 08/03/ | Procedure | [facility] | | | | 2019 | Pass | [facility] Center | | | | | | Operating Room [address] | | | | | | [address] [facility] | | | | | | [place] [address] | | | | | | [phone] | | | +--------+ + + + [...] [address] | | | | | | [place] [address] | | | | | | [phone] | | | | | | | | +--------+---------+ + + + as of this encounter Visit Diagnoses Not on filein this encounter"
--- OUTSIDE RECORDS SUMMARY | ~2019-08-09 | XMS | Encounter Summary ---
Demographics + + + | Address | [address] | | | [place] [address] | + + + | Home Phone [...] Team Providers + +------+ + | Care Die Cutting Machine Operator Name | Role | Phone | + +------+ + | Oxana Ney | PCP | Unavailable | + +------+ + Encounter Details +--------+ + + + + | Date | Type | Department | Care Team | Description | +--------+ + + + + | 03/05/ | MyChart | Cardiology General | Airam Fuchs MD | RE: Do you have all | | 2016 | Encounter | at [facility] [address] | [address] | medical records from | | | | Abbe Soto Mailcode: | [address] [facility], | [facility] in | | | | [address] | [place] [address] | [facility] | | | | [facility], | [phone] | in [facility] | | | | | | Ant | | | | Floor [place], [place] | | | | | | [address] | | | | | | [phone] | | | +--------+ + + + [...]
--- OUTSIDE RECORDS SUMMARY | ~2019-08-09 | XMS | Encounter Summary ---
Demographics + + + | Address | [address] | | | [place] [address] | + + + | Home Phone | | + + + | Preferred Language | Unknown | + + + | Marital Status | Single | + + + | Orthodoxy Affiliation | NON | + + + | Race | White | + + + | Ethnic Group | Not or | + + + Author + + + | Author | [facility] | + + + | Organization | [facility] | + + + | Address | Unknown | + + + | Phone | Unavailable | + + + Support + + +---------+ + | Name | Relationship | Address | Phone | + + +---------+ + | Royce Menchaca | ECON | Unknown | | + + +---------+ + Care Team Providers + +------+ + | Care Patients Transporter Name | Role | Phone | [...] | Chest | Referring | [place] [address] | | | | | pressure | Provider Per | [address] | | | | | Procedures | Patient NO | [address] | | | | | [place] NEW | REFERRING | [place], [place] | | | | | PATIENT | PROVIDER PER | [address] Phone: | | | | | LEVEL [place] | PT | [phone] | | | | | OFFICE/OUTPT | | Fax: | | | | | | | [phone] | | | | | VISIT,EST,LE | | | | | | | GINA III [place] | | | | | | | OFFICE/OUTPT | | | | | | | | | | | | | | VISIT,EST,LE | | | | | | | VL IV [place] | | | | | | | [...] | | 2016 | Visit | at [facility] [address] | [address] | unspecified type | | | | Abbe Soto Mailcode: | [address] [place], | (Primary Dx); | | | | [address] | [place] [address] | Palpitations | | | | Health and Healing, | [phone] | | | | | [facility] | | | | | | Floor [place], [place] | | | | | | [address] | | | | | | [phone] | | | +--------+---------+ + + + [...] per Dr. Fuchs's note. Tiago Blake DO Transportation Equipment Painter Clinical dental hygiene instructor/ Division of Cardiovascular Medicine Airam Nicole Md - 03/09/2016 3:27 PM PDT [facility] General Cardiology New Patient Evaluation Patient [...] ED. She was then transf erred to [facility] in [facility] where she was put into the ICU [...] every couple of weeks. She comes to [facility] today because she wants a second opinion [...] LIPID LAB | [address] | [place], [place] | | | | [address] | [address] | | + + + + + documented in this encounter Visit Diagnoses + + | Diagnosis | + + | Chest pain, unspecified type - Primary | + + | Palpitations | + + documented in this encounter
--- OUTSIDE RECORDS SUMMARY | ~2019-08-09 | XMS | Encounter Summary ---
Demographics + + + | Address | [address] | | | [place] [address] | + + + | Home Phone [...] Team Providers + +------+ + | Care Search Specialist Name | Role | Phone | [...] | | | stenosis | B | [address] | | | | | | [place], [place] | Phone: | | | | | | [address] | [phone] | | | | | | Phone: | Fax: | | | | | | [phone] | [phone] | | | | | | Fax: | | | | | | | [phone] | | + +--------+ + + + + Encounter Details +--------+---------+ + + + | Date | Type | Department | Care Team | Description | +--------+---------+ + + + | 06/18/ | Office | [facility] | Denys Sibley, | SACROILIITIS | | 2018 | Visit | [facility] | DO [address] | (Primary Dx); | | | | [address]OLOGY [address] [place] | 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 | | | | [place], [place] | | without myelopathy | | | | [address] | | or radiculopathy; | | | | [phone] | | BACK PAIN, LUMBAR; | | [...] | | | | | | pain; prison | | | | | | current [...] + | Blood Pressure | 118/66 | 06/18/2019958 PDT | + + + + | Pulse | 84 | 06/18/2019958 PDT | + + + + | Temperature | - | - | + + + + | Respiratory Rate | 18 | 06/18/2019958 PDT | + + + + | Oxygen Saturation | 99% | 06/18/2019958 PDT | + + + + | Inhaled Oxygen | - | - | | Concentration | | | + + + + | Weight | 50.5 kg (111 lb 6.4 | 06/18/2019958 PDT | | | oz) | | + + + + | Height | 154.9 cm (5' 1") | 06/18/2019958 PDT | + + + + | Body Mass Index | 21.05 | 06/18/2019 0959 PDT | + + + + documented in this encounter Patient Instructions Patient Instructions Denys Sibley DO - 06/18/2019 10:20 PDT Naloxone nasal spray Brand Name: Warren What is this medicine? NALOXONE (nal OX [...] the other nostri l. Talk to your machine binding folder regarding the use of this medicine in children. While this drug m ay be prescribed for children as young as newborns for selected conditions, precautions do a pply. What side effects may I notice from receiving this medicine? Side effects that you should report to your doctor or health floor care specialist as soon as p ossible: allergic reactions like skin rash, itching or hives, swelling of the face, lips, or tong ue breathing problems fast, irregular heartbeat high blood pressure pain that was controlled by narcotic pain medicine seizures Side effects that usually do not require medical attention (report to your doctor or health floor care specialist if they continue or are bothersome): anxious [...] phone number of your doctor or health floor care specialist and local hospital ready. You may need to have additional doses of this medicine. Each nasal spray contains a single dose. Some emergencies may require additional doses. After use, bring the treated person to the nearest hospital or call 911. [address] [facility] health floor care specialist knows that the person has received an [...] Progress Notes Denys Sibley DO - 06/18/2019 1020 PDTFormatting of this note might be different [...] repair Arthralgia Asthma Asthma Cancer ([facility]) 2004 breast Cerebrovascular accident (CVA) ([facility]) no per pt Chronic back pain Chronic back pain Concussion 07/2015 Preceeded by seizure Constipation COPD (chronic obstructive pulmonary disease) ([facility]) Degenerative disc disease Depression Depression Diabetes mellitus ([facility]) Diabetes mellitus, type 2 ([facility]) diet controlled Diarrhea Disorder of thyroid Diverticulosis [...] to physical therapy, mass age therapy, acupuncture, hearing healthcare practitioner, along with recommended psychological counseling , either privately, or in group sessions offered by private care individuals, community serv ices, or lutheran organizations. Appropriate referrals were made at patient [...] Will return to office in 4 weeks, [place] [employer] SUPERVISOR COMPRESSED YEAST was consulted and appears appropriate, Urine Toxicology [...] dysfunction are noted in men and women. [facility] men will suffer erectile dysfunction with these [...] and complications with the passage of time. prison use is also associated with depressions, and [...] | | | | | [place] [address] | | | | | | [phone] | | | | | | | | +--------+---------+ + + + | 08/16/ | Office | Pain Medicine | Denys Sibley, | | | 2018 | Visit | | [address] | | | | | | [place] | | | | | | [address] | | | | | | | | +--------+---------+ + + + + +--------+ + + | Name | Priori | Associated Diagnoses | Order Schedule | | | ty | | | + +--------+ + + | Drugs of Abuse, Panel, Pain | Routin | prison current | Expected: | | Management 2, Reflex | e | use of opiate | 06/25/2019, Expires: | | | | analgesic | 06/18/2020 | + +--------+ + + documented as [...] pain Backache, unspecified | + + | prison current use of opiate analgesic Encounter for long-term (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 of | | other medications | + + documented in this encounter
--- OUTSIDE RECORDS SUMMARY | ~2019-08-09 | XMS | Encounter Summary ---
Demographics + + + | Address | [address] | | | [place] [address] | + + + | Home Phone | | + + + | Preferred Language | Unknown | + + + | Marital Status | Single | + + + | Sabianism Affiliation | NON | + + + | Race | White | + + + | Ethnic Group | Not or | + + + Author + + + | Author | [facility] | + + + | Organization | [facility] | + + + | Address | Unknown | + + + | Phone | Unavailable | + + + Support + + +---------+ + | Name | Relationship | Address | Phone | + + +---------+ + | Royce Menhcaca | ECON | Unknown | | + + +---------+ + Care Team Providers + +------+ + | Care Instructor Programmable Controllers Name | Role | Phone | + +------+ + | Miquel Calhoun MD | PCP | | + +------+ + Encounter Details +--------+ + + + + | Date | Type | Department | Care Team | Description | +--------+ + + + + | 11/05/ | [facility] | [facility] | Khushbu Cortez, | | | 2013 | | [facility] | FREIGHT TRUCKER [place], [place] | | | | | [address] | [address] | | | | | [address] | | | | | | Aravind Hannon | | | | | | [place], [place] | | | | | | [address] | | | | | | [phone] | | | +--------+ + + + [...]
--- OUTSIDE RECORDS SUMMARY | ~2019-08-09 | XMS | Encounter Summary ---
Demographics + + + | Address | [address] | | | [place] [address] | + + + | Home Phone [...] Team Providers + +------+ + | Care Eligibility Specialist Name | Role | Phone | [...] for | | 2015 | | at [facility] [address] | [address] | new pt appt) | | | | Mcadams Brittany Mailcode: | [address] [place], | | | | | [facility] | [place] [address] | | | | | Health and Healing, | [phone] | | | | | [facility] | | | | | | Floor [place], [place] | | | | | | [address] | | | | | | [phone] | | | +--------+ + + + [...]
--- OUTSIDE RECORDS SUMMARY | ~2019-08-09 | XMS | Encounter Summary ---
Demographics + + + | Address | [address] | | | [place] [address] | + + + | Home Phone [...] Author + + + | Author | [facility] | + + + | Organization | [facility] | + + + | Address | Unknown | + + + | Phone | Unavailable | + + + Support + + +---------+ + | Name | Relationship | Address | Phone | + + +---------+ + | Royce Menchaca | ECON | Unknown | | + + +---------+ + Care Team Providers + +------+ + | Care Blanker Operator Name | Role | Phone | + +------+ + | Miquel Calhoun MD | PCP | | + +------+ + Encounter Details +--------+ + + + + | Date | Type | Department | Care Team | Description | +--------+ + + + + | 10/18/ | Telephone | [facility] | Khushbu Cortez, | | | 2012 | | [facility] | FEED MILL OPERATOR [place], [place] | | | | | [address] | [address] | | | | | [address] | | | | | | Aravind Hannon | | | | | | [place], [place] | | | | | | [address] | | | | | | [phone] | | | +--------+ + + + [...]
--- OUTSIDE RECORDS SUMMARY | ~2019-08-09 | XMS | Encounter Summary ---
Demographics + + + | Address | [address] | | | [place] [address] | + + + | Home Phone [...] Team Providers + +------+ + | Care Blocker Metal Base Name | Role | Phone | + +------+ + | Miquel Calhoun MD | PCP | | + +------+ + Encounter Details +--------+ + + + + | Date | Type | Department | Care Team | Description | +--------+ + + + + | 10/18/ | Telephone | [facility] | Khushbu Cortez, | | | 2012 | | [facility] | BIOINFORMATICS PROGRAMMER [place], [place] | | | | | [address] | [address] | | | | | [address] | | | | | | Aravind Hannon | | | | | | [place], [place] | | | | | | [address] | | | | | | [phone] | | | +--------+ + + + [...]
--- OUTSIDE RECORDS SUMMARY | ~2019-08-09 | XMS | Encounter Summary ---
Demographics + + + | Address | [address] | | | [place] [address] | + + + | Home Phone [...] Team Providers + +------+ + | Care Strategy Manager Name | Role | Phone | [...] | | | [address] | [place] [address] | | | | | [place], [place] | [phone] | | | | | [address] | | | | | | [phone] | | | +--------+ + + + [...] | | | | | [place] [address] | | | | | | [phone] | | | | | | | | +--------+---------+ + + + | 08/16/ | Office | Pain Medicine | Denys Sibley, | | | 2018 | Visit | | [address] | | | | | | [place] | | | | | | [address] | | | | | | | | +--------+---------+ + + + documented as of this encounter Visit Diagnoses Not on filedocumented in this encounter"
--- OUTSIDE RECORDS SUMMARY | ~2019-08-09 | XMS | Encounter Summary ---
Demographics + + + | Address | [address] | | | [place] [address] | + + + | Home Phone [...] Team Providers + +------+ + | Care Fish Smoker Name | Role | Phone | + [...]
--- OUTSIDE RECORDS SUMMARY | ~2019-08-09 | XMS | Encounter Summary ---
Demographics + + + | Address | [address] | | | [place] [address] | + + + | Home Phone | | + + + | Preferred Language | Unknown | + + + | Marital Status | Single | + + + | Religion Affiliation | NON | + + + [...] Team Providers + +------+ + | Care Parcel Post Truck Driver Name | Role | Phone [...] 2015 | Encounter | at [facility] [address] | | Change: Effective | | | | Mcad[place]any Mailcode: | | October 31 | | | | [facility] | | | | | | [facility] He[facility], | | | | | | Building | | | | | | Floor [place], [place] | | | | | | [address] | | | | | | [phone] | | | +--------+ + + + [...]
--- OUTSIDE RECORDS SUMMARY | ~2019-08-09 | XMS | Encounter Summary ---
Demographics + + + | Address | [address] | | | [place] [address] | + + + | Home Phone [...] Team Providers + +------+ + | Care Agile Qa Tester Name | Role | Phone | + +------+ + | Romy De La Paz MD | PCP | | + +------+ + Encounter Details +--------+ + + + + | Date | Type | Department | Care Team | Description | +--------+ + + + + | 07/18/ | Preadmit | [facility] | No, Physician | | | 2019 | Visit | CENTER [facility] | | | | | | CLINIC [address] | | | | | | [place], [place] | | | | | | [address] | | | | | | [phone] | | | +--------+ + + + [...] for the 07/18/19 encounter (Preadmit Visit) with [facility] PAS ROOM 5 Medication Sig Instructions Ascorbic [...] by elevating your feet Date Last Reviewed: 0676-9554 [employer]. [address] [place] [address]. All righ ts reserved. This information is [...] [address] | | | | | | [facility] | | | | | | [place] [address] | | | | | | [phone] | | | | | | | | +--------+---------+ + + + | 08/16/ | Office | Pain Medicine | Denys Sibley, | | | 2019 | Visit | | DO [address] | | | | | | [address] [place] | | | | | | [address] | | | | | | | [...] LABORATORY | | | | Blvd;[place] [address] | | | | + + + + + + + + | Specimen | + + | Blood | + + + + + + + | Performing | Address | City/State/Zipcode | Phone Number | | Organization | | | | + + + + + | [facility] | [address] | [place] [address] | [phone] | + + + + + MRSA [...] | | | | performed at [facility] | | LABORATORY | | | | [address];[place], [place] | | | | | | [address] | | | | + + + + + + + + | Specimen | + + | Tissue | + + + + + + + | Performing | Address | City/State/Zipcode | Phone Number | | Organization | | | | + + + + + | [facility] | [address] | [place] [address] | [phone] | + + + + + Protime INR (07/18/2019 14:26 PDT) + + + + + + | Component | Value | Ref Range | Performed | Pathologist | | | | | At | Signature | + + + + + + | INR | 1.0Comment: REFERENCE | | [facility] | | | | RANGE:0.9 - | [...] | | | | performed at [facility];[address] | | | | | [address];[place] | | | | | | [address] | | | | + + + + + + + + | Specimen | + + | Blood | + + + + + + + | Performing | Address | City/State/Zipcode | Phone Number | | Organization | | | | + + + + + | [facility] | [address] | [place] [address] | [phone] | + + + + + PTT (07/18/2019 14:26 PDT) + + + + + + | Component | Value | Ref Range | Performed | Pathologist | | | | | At | Signature | + + + + + + | PTT | 29Comment: Testing | 23 - 32 seconds | AMIRA | | | | performed at [facility];[address] | | LABORATORY | | | | [address];[place] | | | | | | [address] | | | | + + + + + + + + | Specimen | + + | Blood | + + + + + + + | Performing | Address | City/State/Zipcode | Phone Number | | Organization | | | | + + + + + | [facility] | [address] | [place] [address] | [phone] | + + + + + Comprehensive [...] | | | | | performed at [facility], [address] | | | | | | [facility], | | | | | | [place] [address] | | | | + + + + + + + + | Specimen | + + | Blood | + + + + + + + | Performing | Address | City/State/Zipcode | Phone Number | | Organization | | | | + + + + + | [facility] | [address] | [place] [address] | [phone] | + + + + + CBC [...] | | | Absolute | performed at [facility], [address] | K/uL | LABORATORY | | | | [address], | | | | | | [place] [address] | | | | + + + + + + + + | Specimen | + + | Blood | + + + + + + + | Performing | Address | City/State/Zipcode | Phone Number | | Organization | | | | + + + + + | [facility] | [address] | [place] [address] | [phone] | + + + + + ECG [...]
--- OUTSIDE RECORDS SUMMARY | ~2019-08-09 | XMS | Encounter Summary ---
Demographics + + + | Address | [address] | | | [place] [address] | + + + | Home Phone [...] Providers + +------+ + | Care Charging Plug Placer Name | Role | Phone | + [...] + + | 07/20/ | Telephone | [facility] | Maykel Hutchins MD | Procedure (Question) | | 2019 | | [facility] | [address] | | | | | ORTHOPEDIC SPINE | [place] | | | | | [address] [place] | [place] [address] | | | | | [place] | [phone] | | | | | [address] | | | | | | [phone] | | | +--------+ + + + [...] | | | | | [place] [address] | | | | | | [phone] | | | | | | | | +--------+---------+ + + + | 08/16/ | Office | Pain Medicine | Denys Sibley, | | | 2018 | Visit | | [address] | | | | | | [address]IVE [place] | | | | | | [address] | | | | | | | | +--------+---------+ + + + documented as of this encounter Visit Diagnoses Not on filedocumented in this encounter"
--- OUTSIDE RECORDS SUMMARY | ~2019-08-09 | XMS | Encounter Summary ---
Demographics + + + | Address | [address] | | | [place] [address] | + + + | Home Phone [...] Team Providers + +------+ + | Care Highway Patrol Officer Name | Role | Phone | [...] | | [address] [place] | [place] [address] | | | | | [place] | [phone] | | | | | [address] | | | | | | [phone] | | | +--------+ + + + [...] | | | | | [place] [address] | | | | | | [phone] | | | | | | | | +--------+---------+ + + + | 08/16/ | Office | Pain Medicine | Denys Sibley, | | | 2018 | Visit | | [address] | | | | | | [place] | | | | | | [address] | | | | | | | | +--------+---------+ + + + documented as of this encounter Visit Diagnoses Not on filedocumented in this encounter"
--- OUTSIDE RECORDS SUMMARY | ~2019-08-09 | XMS | Encounter Summary ---
Demographics + + + | Address | [address] | | | [place] [address] | + + + | Home Phone [...] Team Providers + +------+ + | Care Landing Man Name | Role | Phone | [...] | | | | | | [place] SURG | | | | | | | IMPLNT | | | | | | | NEUROELECT,E | | | | | | | PIDURAL [place] | | | | | | | IMPLANT | | | | | | | NEUROSTIM/RE | | | | | | | CEIVER [place] | | | | | | [...] CRNA | | | 2019 | Event [facility] | [address] | | | | | OPERATING RO[address] | [place] [address] | | | | | [address] | [phone] | | | | | [place], [place] | | | | | | [address] | | | | | | [phone] | | | +--------+ + + + [...] +----+---+ + + | | 0 | [place] | | | | 9 | 43-degrees [...] [address] | | eral | Antecubital; [id number] | Mikayla Marcial, | Gamal [place], | [...] | | | | | [place] [address] | | | | | | [phone] | | | | | | | | +--------+---------+ + + + | 08/16/ | Office | Pain Medicine | Denys Sibley, | | | 2018 | Visit | | [address] | | | | | | [place] | | | | | | [address] | | | | | | | [...] CRNA - 08/03/2019 0952 PDT Anesthesia Airway Isdnsvcot03/4/2019 | | 9:33Preprocedure check: patient identified, oxygen, [...]
--- OUTSIDE RECORDS SUMMARY | ~2019-08-09 | XMS | Encounter Summary ---
Demographics + + + | Address | [address] | | | [place] [address] | + + + | Home Phone [...] Team Providers + +------+ + | Care Catapult And Arresting Gear Officer Name | Role | Phone | [...] | | 2012 | | [facility] | [address] | | | | | Pavilion [address] | Juliana Schulte [place], | | | | | [address] | [place] [address] | | | | | [place] | [phone] | | | | | [place], [place] | | | | | | [address] | | | | | | [phone] | | | +--------+ + + + [...]
--- OUTSIDE RECORDS SUMMARY | ~2019-08-09 | XMS | Encounter Summary ---
Demographics + + + | Address | [address] | | | [place] [address] | + + + | Home Phone [...] Team Providers + +------+ + | Care Bridge Repair Crew Person Name | Role | Phone | [...] + + | 08/06/ | Telephone | [facility] | Maykel Hutchins MD | Medication Question | | 2019 | | NEUROSCIENCE CENTER | [address] | | | | | ORTHOPEDIC SPINE | [place] | | | | | [address] [place] | [place] [address] | | | | | [place] | [phone] | | | | | [address] | | | | | | [phone] | | | +--------+ + + + [...] | | | | | [place] [address] | | | | | | [phone] | | | | | | | | +--------+---------+ + + + | 08/16/ | Office | Pain Medicine | Denys Sibley, | | | 2018 | Visit | | [address] | | | | | | [place] | | | | | | [address] | | | | | | | | +--------+---------+ + + + documented as of this encounter Visit Diagnoses Not on filedocumented in this encounter"
--- OUTSIDE RECORDS SUMMARY | ~2019-08-09 | XMS | Encounter Summary ---
Demographics + + + | Address | [address] | | | [place] [address] | + + + | Home Phone [...] Providers + +------+ + | Care Machine Bookkeeper Name | Role | Phone | + +------+ + | Miquel Calhoun MD | PCP | | + +------+ + Encounter Details +--------+ + + + + | Date | Type | Department | Care Team | Description | +--------+ + + + + | 09/17/ | Telephone | [facility] | Khushbu Cortez, | | | 2012 | | [facility] | CARETAKER [place], [place] | | | | | [address] | [address] | | | | | [address] | | | | | | [place] | | | | | | [place], [place] | | | | | | [address] | | | | | | [phone] | | | +--------+ + + + [...]
--- OUTSIDE RECORDS SUMMARY | ~2019-08-09 | XMS | Encounter Summary ---
Demographics + + + | Address | [address] | | | [place] [address] | + + + | Home Phone | | + + + | Preferred Language | Unknown | + + + | Marital Status | Single | + + + | Yarsanism Affiliation | NON | + + + [...] Team Providers + +------+ + | Care Quill Worker Name | Role | Phone | [...] for | | 2015 | | at [facility] [address] | [address] | new pt appt) | | | | Mcad[place] Brittany Mailcode: | [address] [place], | | | | | [facility] | [place] [address] | | | | | Health and Healing, | [phone] | | | | | [facility] | | | | | | Floor [place], [place] | | | | | | [address] | | | | | | [phone] | | | +--------+ + + + [...]
--- OUTSIDE RECORDS SUMMARY | ~2019-08-09 | XMS | Encounter Summary ---
Demographics + + + | Address | [address] | | | [place] [address] | + + + | Home Phone [...] Author | [facility] Oleary [...] Team Providers + +------+ + | Care Reporting Lead Name | Role | Phone | [...] | | | stenosis | B | [address] | | | | | | [place], [place] | Phone: | | | | | | [address] | [phone] | | | | | | Phone: | Fax: | | | | | | [phone] | [phone] | | | | | | Fax: | | | | | | | [phone] | | + +--------+ + + + + Encounter Details +--------+---------+ + + + | Date | Type | Department | Care Team | Description | +--------+---------+ + + + | 07/18/ | Office | [facility] | Denys Sibley, | Lumbar region | | 2018 | Visit | [facility] | DO [address] | somatic dysfunction | | | | [address]Y [address] [place] | (Primary Dx); | | | | [address] | [address] | Intractable back | | | | [place] | | pain; Encounter for | | | | [address] | | long-term use of | | | | [phone] | | opiate analgesic; | | | [...] Medical History: Diagnosis Date Acute renal failure ([facility]) April 2013 Anesthesia hallucinated after bladder repair Arthralgia Asthma Asthma Cancer ([facility]) 2004 breast Cerebrovascular accident (CVA) ([facility]) no per pt Chronic back pain Chronic back pain Concussion 07/2015 Preceeded by seizure Constipation COPD (chronic obstructive pulmonary disease) ([facility]) Degenerative disc disease Depression Depression Diabetes mellitus ([facility]) Diabetes mellitus, type 2 ([facility]) diet controlled Diarrhea Disorder of [...] Scoliosis Scoliosis of lumbar spine 04/17/2014 Seizure ([facility]) one due to meds, two [...] physical therapy, mass age therapy, acupuncture, career consultant, along with recommended psychological counseling , either [...] Will return to office in 4 weeks, [facility] was consulted and appears appropriate, Urine [...] are noted in men and women. Ma me men will suffer erectile dysfunction with these [...] [address] | | | | | | [facility] | | | | | | [place] [address] | | | | | | [phone] | | | | | | | | +--------+---------+ + + + | 08/16/ | Office | Pain Medicine | Denys Sibley, | | | 2018 | Visit | | DO [address] | | | | | | [address] [place] | | | | | | [address] | | | | | | | [...]
--- OUTSIDE RECORDS SUMMARY | ~2019-08-09 | XMS | Encounter Summary ---
Demographics + + + | Address | [address] | | | [place] [address] | + + + | Home Phone [...] Team Providers + +------+ + | Care Educational Assistant Name | Role | Phone | + +------+ + | Miquel Calhoun MD | PCP | | + +------+ + Encounter Details +--------+ + + + + | Date | Type | Department | Care Team | Description | +--------+ + + + + | 11/05/ | Telephone | [facility] | Khushbu Cortez, | | | 2013 | | [facility] | AUDIO VIDEO TECHNICIAN [place], [place] | | | | | [address] | [address] | | | | | [address] | | | | | | Arav[place]annon | | | | | | [place], [place] | | | | | | [address] | | | | | | [phone] | | | +--------+ + + + [...]
--- OUTSIDE RECORDS SUMMARY | ~2019-08-09 | XMS | Encounter Summary ---
Demographics + + + | Address | [address] | | | [place] [address] | + + + | Home Phone [...] and Services [place] | | | and rPiteshana | + + + | Organization | [...] Providers + +------+ + | Care Sales Manager [place] Name | Role | Phone | + [...] + + | 08/03/ | Surgery | [facility] | Maykel Hutchins MD | LAMINOTOMY THORACIC | | 2019 | | [facility] | [address] | / LUMBAR W/ | | | | OPERATING RO[address] | [place] | PLACEMENT SPINAL | | | | [address] | [place] [address] | CORD STIMULATOR | | | | [place] | [phone] | | | | | [address] | | | | | | [phone] | | | +--------+---------+ + + + [...] 08/03/2019725 PDT | + + + + documented [...] by elevating your feet Date Last Reviewed: 2726-0945 [employer]. [address] [place] [address]. All righ ts reserved. This information is not intended as a substitute for professional medical care. Always follow your healthcare professional's instructions. Acetaminophen; Hydrocodone tablets or capsules Brand Names: Anexsia, Lorcet, Lorcet HD, Lorcet Plus, Lortab, [place], Verdrocet, Vicodin, Vi codin ES, Vicodin HP, [...] information carefully each time. Talk to your speech language pathology assistant regarding the use of this medicine in children. Special care may be needed. What side effects may I notice from receiving this medicine? Side effects that you should report to your doctor or health complex care nurse as soon as p ossible: allergic [...] attention (report to your doctor or health complex care nurse if they continue or are bothersome): [...] to an official disposal site. Contact the [facility] at [phone] or your [facility] to find a site. If [...] this medicine? Tell your doctor or health complex care nurse if your pain does not go [...] patch onto | 10 | 0 | // | | | (DURAGESIC) 25 | the [...] Amador Faria MSW - 08/04/2019 1412 PDTCase clinical services manager sent out Home Health order to Robi Carpenter today. The patient would need to follow up with patient on Tuesday. Electronically s igned by ANGELO Escudero at 08/04/2019 14:13 Julien Luevano ARNP - 08/04/2019 0841 PDT Kori McintoshMartita is a 74 y.o. female patient s/p SCS placement with thoracic sequeira inectomy yesterday. Stayed overnight as patient lives alone. She has a friend that will pick her up today to go home to [facility]. Past Medical History: Diagnosis Date Acid reflux [...] 8.6 mg 8.6 mg Oral BID PRN RENATO DavisP sodium chloride 0.45% (1/2 NS) infusion Intravenous [...] | | | | | [place] [address] | | | | | | [phone] | | | | | | | | +--------+---------+ + + + | 08/16/ | Office | Pain Medicine | Denys Sibley, | | | 2018 | Visit | | [address] | | | | | | [address] [place] | | | | | | [address] | | | | | | | [...] | | | Needs | | | NEURODIAGNOSTIC TECHNICIAN | | | reques | | | [...] | | POC | performed at [facility];[address] | | LABORATORY | | | | [address];[place] | | | | | | [address] | | | | + + + + + + + + | Specimen | + + | | + + + + + + + | Performing | Address | City/State/Zipcode | Phone Number | | Organization | | | | + + + + + | [facility] | [address] | [place] [address] | [phone] | + + + + + POC Glucose (08/03/2019 16:15 PDT) + + + + + + | Component | Value | Ref Range | Performed | Pathologist | | | | | At | Signature | + + + + + + | Glucose, | 99Comment: Testing | 65 - 99 mg/dL | [facility] | | | POC | performed at [facility];[address] | | LABORATORY | | | | [address];[place] | | | | | | [address] | | | | + + + + + + + + | Specimen | + + | | + + + + + + + | Performing | Address | City/State/Zipcode | Phone Number | | Organization | | | | + + + + + | [facility] | [address] | [place] [address] | [phone] | + + + + + POC [...] | | POC | performed at [facility];[address] | | LABORATORY | | | | [address];[place], [place] | | | | | | [address] | | | | + + + + + + + + | Specimen | + + | | + + + + + + + | Performing | Address | City/State/Zipcode | Phone Number | | Organization | | | | + + + + + | [facility] | [address] | [place] [address] | [phone] | + + + + + POC [...] | | POC | performed at [facility];[address] | | LABORATORY | | | | [address];[place], [place] | | | | | | [address] | | | | + + + + + + + + | Specimen | + + | | + + + + + + + | Performing | Address | City/State/Zipcode | Phone Number | | Organization | | | | + + + + + | [facility] | [address] | [place] [address] | [phone] | + + + + + [place] [...] [facility] | | Spinal cord stimulator T07/10 FINDINGS: Fluoro Time: | | | .17 [...] + + | Performing | Address | City/State/[facility] | Phone Number | | Organization | [...] Testing | 65 - 99 mg/dL | [facility] | | | POC | performed at [facility];[address] | | LABORATORY | | | | [address];[place] | | | | | | [address] | | | | + + + + + + + + | Specimen | + + | | + + + + + + + | Performing | Address | City/State/Zipcode | Phone Number | | Organization | | | | + + + + + | [facility] | [address] | [place] [address] | [phone] | + + + + + POC Glucose (08/03/2019 9:14 PDT) + + + + + + | Component | Value | Ref Range | Performed | Pathologist | | | | | At | Signature | + + + + + + | Glucose, | 80Comment: Testing | 65 - 99 mg/dL | [facility] | | | POC | performed at [facility];[address] | | LABORATORY | | | | [address];[place], [place] | | | | | | [address] | | | | + + + + + + + + | Specimen | + + | | + + + + + + + | Performing | Address | City/State/Zipcode | Phone Number | | Organization | | | | + + + + + | [facility] | [address] | [place] [address] | [phone] | + + + + + Type [...] + + + | BB BAND | [id number] | | [facility] | | | | | | LABORATORY | | + + + + + + | BB BAND | Testing performed at | | [facility] | | | | [facility];[address] | | LABORATORY | | | [address];[place] [address] | | | | + + + + + + + + | Specimen | + + | Blood | + + + + + + + | Performing | Address | City/State/Zipcode | Phone Number | | Organization | | | | + + + + + | [facility] | [address] | [place] [address] | [phone] | + + + + + POC Glucose (08/03/2019 7:23 PDT) + + + + + + | Component | Value | Ref Range | Performed | Pathologist | | | | | At | Signature | + + + + + + | Glucose, | 77Comment: Testing | 65 - 99 mg/dL | [facility] | | | POC | performed at [facility];[address] | | LABORATORY | | | | [address];[place] | | | | | | [address] | | | | + + + + + + + + | Specimen | + + | | + + + + + + + | Performing | Address | City/State/Zipcode | Phone Number | | Organization | | | | + + + + + | [facility] | [address] | [place] [address] | [phone] | + + + + + documented [...] | | | | | Pain, Starting Fri /4/19 at | | | | | | [...] 50,000 units/10 mL 50,000 Units | | PDT | | | | | optesia mixture PRN, Starting | | | | | | | Tue08/03/19 at 1007, Intra-op | | | | | | + +-------+ +---+---+---+ +---+---+ | | | +---+---+ + +-------+ +--------+---+---+ | thrombin (recombinant) | Given | 08/03/20 | 5,000 | | | | (RECOTHROM) solution PRN, | | 19 10:06 | Units | | | | Starting Tue08/03/19 at 1006, | | PDT | | | | | Intra-op | | | | | | + +-------+ +--------+---+---+ +---+---+ | | | +---+---+ documented in this encounter
--- OUTSIDE RECORDS SUMMARY | ~2019-08-09 | XMS | Encounter Summary ---
Demographics + + + | Address | [address] | | | [place] [address] | + + + | Home Phone [...] + +---------+ + | Nathalia Weinstein | ELIZA | Unknown | | + + +---------+ + Care Team Providers + +------+ + | Care Electric Mule Operator Name | Role | Phone | + +------+ + | Wendi Aiken | PCP | | + +------+ + Encounter Details +--------+ + + + + | Date | Type | Department | Care Team | Description | +--------+ + + + + | 05/21/ | Orders Only | [facility] | Provider, | | | 2018 | | [facility] GENER[facility] OP | MD [address] | | | | | CON[address] | [address] | | | | | [address] [place], [place] | [place] [address] | | | | | [address] | | | | | | [phone] | | | +--------+ + + + [...] | | | | | [place] [address] | | | | | | [phone] | | | | | | | | +--------+---------+ + + + | 08/16/ | Office | Pain Medicine | Denys Sibley, | | | 2018 | Visit | | DO [address] | | | | | | [place] | | | | | | [id number] | | | | | | | | +--------+---------+ + + + documented as of this encounter Visit Diagnoses Not on filedocumented in this encounter"
--- OUTSIDE RECORDS SUMMARY | ~2019-08-09 | XMS | Encounter Summary ---
Demographics + + + | Address | [address] | | | [place] [address] | + + + | Home Phone [...] + + + | Author | [facility] | + + + | Organization | [facility] | + + + | Address | Unknown | + + + | Phone | Unavailable | + + + Support + + +---------+ + | Name | Relationship | Address | Phone | + + +---------+ + | Royce Menchaca | ECON | Unknown | | + + +---------+ + Care Team Providers + +------+ + | Care Lead Inspector Name | Role | Phone | + +------+ + | Miquel Calhoun MD | PCP | | + +------+ + Encounter Details +--------+ + + + + | Date | Type | Department | Care Team | Description | +--------+ + + + + | 11/12/ | [facility] | Khushbu Cortez, | | | 2013 | | [facility] | PIPE LAYER HELPER [place], [place] | | | | | [address] | [address] | | | | | [address] | | | | | | [place] | | | | | | [place], [place] | | | | | | [address] | | | | | | [phone] | | | +--------+ + + + [...]
--- OUTSIDE RECORDS SUMMARY | ~2019-08-09 | XMS | Encounter Summary ---
Demographics + + + | Address | [address] | | | [place] [address] | + + + | Home Phone [...] Providers + +------+ + | Care Drop Tester Name | Role | Phone | + +------+ + | Miquel Calhoun MD | PCP | | + +------+ + Encounter Details +--------+ + + + + | Date | Type | Department | Care Team | Description | +--------+ + + + + | 09/13/ | Telephone | [facility] | Khushbu Cortez, | | | 2012 | | [facility] | HOTEL CLERK [place], [place] | | | | | [address] | [address] | | | | | [address] | | | | | | [place] | | | | | | [place], [place] | | | | | | [address] | | | | | | [phone] | | | +--------+ + + + [...]
--- OUTSIDE RECORDS SUMMARY | ~2019-08-09 | XMS | Encounter Summary ---
Demographics + + + | Address | [address] | | | [place] [address] | + + + | Home Phone [...] Providers + +------+ + | Care Field Care Coordinator Name | Role | Phone | [...] | | 2016 | Encounter | at [facility] [address] | [address] [address] [facility] | | | | | [address] Mailcode: | [address] [place], | | | | | [address] [facility] | [place] [address] | | | | | [facility], | [phone] | | | | | [facility] | | | | | | Floor [place], [place] | | | | | | [address] | | | | | | [phone] | | | +--------+ + + + [...]
--- OUTSIDE RECORDS SUMMARY | ~2019-08-09 | XMS | Encounter Summary ---
Demographics + + + | Address | [address] | | | [place] [address] | + + + | Home Phone [...] Providers + +------+ + | Care Vp Marketing Name | Role | Phone | + +------+ + | Miquel Calhoun MD | PCP | | + +------+ + Encounter Details +--------+ + + + + | Date | Type | Department | Care Team | Description | +--------+ + + + + | 10/18/ | Telephone | [facility] | Khushbu Cortez, | | | 2012 | | [facility] | FISHERIES TECHNICAL OFFICER [place], [place] | | | | | [address] | [address] | | | | | [address] | | | | | | [place] | | | | | | [place], [place] | | | | | | [address] | | | | | | [phone] | | | +--------+ + + + [...]
--- OUTSIDE RECORDS SUMMARY | ~2019-08-09 | XMS | Encounter Summary ---
Demographics + + + | Address | [address] | | | [place] [address] | + + + | Home Phone [...] + +------+ + | Care Video Game Animator Name | Role | Phone | + +------+ + | Oxana Nye | PCP | Unavailable | + +------+ + Encounter Details +--------+ + + + + | Date | Type | Department | Care Team | Description | +--------+ + + + + | 06/26/ | Hospital | Registration 3181 | Julius | | | 2005 | Activity | COURTNEY Andrews | MD Sherita [address] | | | | | Eris Mailcode: [id number] | [address]NEY Andrews | | | | | [place], [place] | [place], [place] | | | | | [address] | [address] | | | | | [phone] | [phone] | | | | | | | [...] | + + + + + | [facility] | [address] [facility] | [place] [address] | | | PATHOLOGY | [address] | | | + + + + + | [facility] | [facility] [facility] | [place] [address] | | | PATHOLOGY | [address] [...] + + + + | [facility] DEPARTMENT OF | [address] | [place] [address] | | | PATHOLOGY | [address] | | | + + + + + | [facility] DEPARTMENT OF | [address] | [place] [address] | | | PATHOLOGY | [address] [...] OF | | | | 300-900 mOsm/kg | | PATHOLOGY | | | | H2O 24 Hr., | | | | | | average fluid intake | | | | | | >850 mOsm/kg | | | | | [...] DEPARTMENT OF | [address] | [place] [address] | | | PATHOLOGY | [address] | | | + + + + + | [facility] DEPARTMENT OF | [address] | [place] [address] | | | PATHOLOGY | [address] | | | + + + + + CREATININE, URINE (06/30/2006 8:30 AM PDT) + +-------+ + + + | Component | Value | Ref Range | Performed | Pathologist | | | | | At | Signature | + +-------+ + + + | CREATININE | 92.9 | mg/dL | [facility] | | | CONC UR | | [...] DEPARTMENT OF | [address] | [place] [address] | | | PATHOLOGY | [address] | | | + + + + + | [facility] DEPARTMENT OF | [address] | [place] [address] | | | PATHOLOGY | [address] [...] + + + + | [facility] DEPARTMENT OF | [address] [facility] | [place] [address] | | | PATHOLOGY | [address] | | | + + + + + | [facility] DEPARTMENT OF | [address] [facility] | [place] [address] | | | PATHOLOGY | [address] [...] | + + + + + | [facility] | [address] [facility] | [place] [address] | | | PATHOLOGY | [address] | | | + + + + + | [facility] | [address] [facility] | [place] [address] | | | PATHOLOGY | [address] [...] + + + + | [facility] DEPARTMENT OF | [address] [facility] | [place] [address] | | | PATHOLOGY | [address] | | | + + + + + | [facility] DEPARTMENT OF | [address] [facility] | [place] [address] | | | PATHOLOGY | [address] [...] + + | [facility] DEPARTMENT OF | [address] | [place] [address] | | | PATHOLOGY | [address] | | | + + + + + | [facility] DEPARTMENT OF | [address] | [place] [address] | | | PATHOLOGY | [address] | | | + + + + + CREATININE, URINE (06/30/2006 4:45 AM PDT) + +-------+ + + + | Component | Value | Ref Range | Performed | Pathologist | | | | | At | Signature | + +-------+ + + + | CREATININE | 40.1 | mg/dL | [facility] | | | CONC UR | | [...] DEPARTMENT OF | [address] | [place] [address] | | | PATHOLOGY | [address] | | | + + + + + | [facility] DEPARTMENT OF | [address] | [place] [address] | | | PATHOLOGY | [address] [...] + + + + | [facility] DEPARTMENT OF | [address] | [place] [address] | | | PATHOLOGY | [address] | | | + + + + + | [facility] DEPARTMENT OF | [address] [address] | [place] [address] | | | PATHOLOGY | [address] [...] + + + + | [facility] DEPARTMENT OF | [facility] | [place] [address] | | | PATHOLOGY | [address] | | | + + + + + | [facility] DEPARTMENT OF | [address] | [place] [address] | | | PATHOLOGY | [address] [...] | + + + + + | [facility] | [address] [facility] | [place] [address] | | | PATHOLOGY | [address] | | | + + + + + | [facility] DEPARTMENT OF | [address] [facility] | [place] [address] | | | PATHOLOGY | [address] [...] OF | | | | 300-900 mOsm/kg | | PATHOLOGY | | | | H2O 24 Hr., | | | | | | average fluid intake | | | | | | >850 mOsm/kg | | | | | [...] | + + + + + | [facility] | [address] [facility] | [place] [address] | | | PATHOLOGY | [address] | | | + + + + + | [facility] | [address] [facility] | [place] [address] | | | PATHOLOGY | [address] [...] + + + + | [facility] DEPARTMENT OF | [address] | [place] [address] | | | PATHOLOGY | [address] | | | + + + + + | [facility] DEPARTMENT OF | [address] | [place] [address] | | | PATHOLOGY | [address] [...] + + + + | [facility] DEPARTMENT OF | [address] | [place] [address] | | | PATHOLOGY | [address] | | | + + + + + | [facility] | [address] | [place] [address] | | | PATHOLOGY | [address] [...] | | | | | vitamin D2, | | | | | | 25-Hydroxy. Test | | | | | | performed by [facility] | | | | | | [employer]. | | | | + + + + + + + + | Specimen | + + | | + + + + + + + | Performing | Address | City/State/Zipcode | Phone Number | | Organization | | | | + + + + + | [facility] | [address] | [place], [place] | | | [facility] | | [address] | | + + + + + [...] | + + + + + | [facility] | [address] [facility] | [place] [address] | | | PATHOLOGY | [address] | | | + + + + + | [facility] | [address] [facility] | [place] [address] | | | PATHOLOGY | [address] [...] + + + + | [facility] DEPARTMENT OF | [address] | [place] [address] | | | PATHOLOGY | [address] | | | + + + + + | [facility] DEPARTMENT OF | [address] | [place] [address] | | | PATHOLOGY | [address] [...] [facility] | [address] | [place], [place] | | | [facility] | | [address] | | + + + + + [...] | | | | | | Escherichia | | | | | | coli | | | | | | Final | | | | | | ID | | | | | | | | | | | | Escherichia | | | | | | coli | | | | | | Prelim ID | | | | | | | | | | | | E. | | | | | | coli Ampicillin | | | | | | | | | | | | S Cefazolin | | | | | | S Ciproflox | | | | | | acin S Gen | | | | | | tamicin | | | | | | S Nitrofurantoin | | | | | | | | | | | | S Tobramycin | | | | | | | | | | | | S Trimeth/Sulfa | | | | | | S Final | | | | | | ReportComment: Test | | | | | | performed at [facility] | | | | | | [facility] [...] + + + | [facility] | [address] | [place] [address] | | | LAB-MICRO | | | [...] DEPARTMENT OF | [address] | [place] [address] | | | PATHOLOGY | [address] | | | + + + + + | [facility] DEPARTMENT OF | [address] | [place] [address] | | | PATHOLOGY | [address] [...] + + + + | [facility] DEPARTMENT OF | [address] | [place] [address] | | | PATHOLOGY | [address] | | | + + + + + | [facility] DEPARTMENT OF | [address] | [place] [address] | | | PATHOLOGY | [address] [...] DEPARTMENT OF | [address] | [place] [address] | | | PATHOLOGY | [address] | | | + + + + + | [facility] DEPARTMENT OF | [address] | [place] [address] | | | PATHOLOGY | [address] [...] + + + + | [facility] DEPARTMENT OF | [address] | [place] [address] | | | PATHOLOGY | [address] | | | + + + + + | [facility] DEPARTMENT OF | [address] | [place] [address] | | | PATHOLOGY | [address] [...] | + + + + + | [facility] | [address] [facility] | [place] [address] | | | PATHOLOGY | [address] | | | + + + + + | [facility] | [address] [facility] | [place] [address] | | | PATHOLOGY | [address] [...] + + + + | [facility] DEPARTMENT OF | [address] [facility] | [place] [address] | | | PATHOLOGY | [address] | | | + + + + + | [facility] DEPARTMENT OF | [address] [facility] | [place] [address] | | | PATHOLOGY | [address] [...] + + | [facility] DEPARTMENT OF | [address] | [place] [address] | | | PATHOLOGY | [address] | | | + + + + + | [facility] DEPARTMENT OF | [address] | [place] [address] | | | PATHOLOGY | [address] [...] + + + + | [facility] DEPARTMENT OF | [address] | [place] [address] | | | PATHOLOGY | [address] | | | + + + + + | [facility] DEPARTMENT OF | [address] | [place] [address] | | | PATHOLOGY | [address] | | | + + + + + PHOSPHORUS, PLASMA (06/28/2006 7:40 PM PDT) + +---------+ + + + | Component | Value | Ref Range | Performed | Pathologist | | | | | At | Signature | + +---------+ + + + | PHOSPHORUS, | 1.2 (L) | 2.4 - 4.7 mg/dL | [facility] | | | PLASMA | | | [...] + + + + | [facility] DEPARTMENT OF | [address] [facility] | [place] [address] | | | PATHOLOGY | [address] | | | + + + + + | [facility] DEPARTMENT OF | [address] [facility] | [place] [address] | | | PATHOLOGY | [address] [...] + + + + | [facility] DEPARTMENT OF | [address] | [place] [address] | | | PATHOLOGY | [address] | | | + + + + + | [facility] DEPARTMENT OF | [address] | [place] [address] | | | PATHOLOGY | [address] [...] | + + + + + | [facility] | [address] [facility] | [place] [address] | | | PATHOLOGY | [address] | | | + + + + + | [facility] DEPARTMENT OF | [address] [facility] | [place] [address] | | | PATHOLOGY | [address] | | | + + + + + MAGNESIUM, PLASMA (06/28/2006 6:20 AM PDT) + +-------+ + + + | Component | Value | Ref Range | Performed | Pathologist | | | | | At | Signature | + +-------+ + + + | MAGNESIUM,P | 2.1 | 1.8 - 2.5 mg/dL | [facility] | | | LASMA | | | [...] + + + + | [facility] DEPARTMENT OF | [address] | [place] [address] | | | PATHOLOGY | [address] | | | + + + + + | [facility] DEPARTMENT OF | [address] | [place] [address] | | | PATHOLOGY | [address] [...] | + + + + + | [facility] | [address] [facility] | [place] [address] | | | PATHOLOGY | [address] | | | + + + + + | [facility] | [address] [facility] | [place] [address] | | | PATHOLOGY | [address] [...] DEPARTMENT OF | [address] | [place] [address] | | | PATHOLOGY | [address] | | | + + + + + | [facility] DEPARTMENT OF | [address] [facility] | [place] [address] | | | PATHOLOGY | [address] [...] DEPARTMENT OF | [address] | [place] [address] | | | PATHOLOGY | [address] | | | + + + + + | [facility] DEPARTMENT OF | [address] | [place] [address] | | | PATHOLOGY | [address] | | | + + + + + PROTHROMBIN TIME (06/28/2006 6:20 AM PDT) + + + + + + | Component | Value | Ref Range | Performed | Pathologist | | | | | At | Signature | + + + + + + | INR | 1.10Comment: | 0.90 - 1.20 INR | [facility] | | | | PT INR | | DEPARTMENT | | | | Therapeutic ranges for | | OF | | | | full | | PATHOLOGY | | | | anticoagulation: | | | | | | INR for | | | | | | Venous | | | | | | Thromboembolism | | | | | | | | | | | | (2.0-3.0)INR | | | | | | INR for most | | | | | | patients with mech. | | | | | | valves (2.5-3.5)I | | | | | | NR | | | | + + + + + + + + | Specimen | + + | | + + + + + + + | Performing | Address | City/State/Zipcode | Phone Number | | Organization | | | | + + + + + | [facility] | [address] | [place] [address] | | | PATHOLOGY | [address] | | | + + + + + | [facility] | [facility] | [place] [address] | | | PATHOLOGY | [address] [...] | + + + + + | [facility] | [address] [facility] | [place] [address] | | | PATHOLOGY | [address] | | | + + + + + | [facility] | [address] [facility] | [place] [address] | | | PATHOLOGY | [address] | | | + + + + + MAGNESIUM, PLASMA (06/27/2006 5:40 PM PDT) + +-------+ + + + | Component | Value | Ref Range | Performed | Pathologist | | | | | At | Signature | + +-------+ + + + | MAGNESIUM,P | 1.8 | 1.8 - 2.5 mg/dL | [facility] | | | LASMA | | | [...] + + + + | [facility] DEPARTMENT OF | [address] [facility] | [place] [address] | | | PATHOLOGY | [address] | | | + + + + + | [facility] DEPARTMENT OF | [address] [facility] | [place] [address] | | | PATHOLOGY | [address] [...] | + + + + + | [facility] | [address] [facility] | [place] [address] | | | PATHOLOGY | [address] | | | + + + + + | [facility] | [address] [facility] | [place] [address] | | | PATHOLOGY | [address] [...] [facility] | | | | PT INR | | DEPARTMENT | | | | Therapeutic ranges for | | OF | | | | full | | PATHOLOGY | | | | anticoagulation: | | | | | | INR for | | | | | | Venous | | | | | | Thromboembolism | | | | | | | | | | | | (2.0-3.0)INR | | | | | | INR for most | | | | | | patients with mech. | | | | | | valves (2.5-3.5)I | | | | | | NR | | | | + + + + + + + + | Specimen | + + | | + + + + + + + | Performing | Address | City/State/Zipcode | Phone Number | | Organization | | | | + + + + + | [facility] | [address] | [place] [address] | | | PATHOLOGY | [address] | | | + + + + + | [facility] | [address] | [place] [address] | | | PATHOLOGY | [address] [...] + + + | Test performed at [facility] | | + + + + + + + + | Performing | Address | City/State/Zipcode | Phone Number | | Organization | | | | + + + + + | [facility] | [address] | [place] [address] | | | LABORATORY | | | [...] + + + | Test performed at [facility] | | + + + + + + + + | Performing | Address | City/State/Zipcode | Phone Number | | Organization | | | | + + + + + | [facility] | [address] | [place] [address] | | | LABORATORY | | | | + + + + + IOD-ORGANIC BASE CONFIRM (06/27/2006 11:55 AM PDT) + + | Specimen | + + | | + + + + + | Narrative | Performed At | + + + | Test performed at [facility] | [facility] | | | DEPARTMENT OF | | | PATHOLOGY | + + + + + + + + | Performing | Address | City/State/Zipcode | Phone Number | | Organization | | | | + + + + + | [facility] DEPARTMENT OF | [facility] | [place] [address] | | | PATHOLOGY | [address] | | | + + + + + | [facility] DEPARTMENT OF | [facility] | [place] [address] | | | PATHOLOGY | [address] [...] catheter | | | | | | | | | | | | Culture: Final | | | | | | Report: No growth (< | | | | | | 1,000 col/ml) after | | | | | | 18-24 | | | | | | | | | | | | hours | | | | | | Final ReportComment: | | | | | | Test performed at | | | | | | [facility] | | | | | | [facility]. | | | | + + + + + + + + | Specimen | + + | | + + + + + + + | Performing | Address | City/State/Zipcode | Phone Number | | Organization | | | | + + + + + | [facility] | [address] | [place] [address] | | | LAB-MICRO | | | [...] | | | performed by [facility] | [facility] | | | | | [facility] | | | | | | [facility]. | | | | + + + + + + + + | Specimen | + + | | + + + + + + + | Performing | Address | City/State/Zipcode | Phone Number | | Organization | | | | + + + + + | [facility] | [address] | [place] [address] | | | LABORATORY | | | [...] + + + + | [facility] DEPARTMENT OF | [address] [facility] | [place] [address] | | | PATHOLOGY | [address] | | | + + + + + | [facility] DEPARTMENT OF | [address] [facility] | [place] [address] | | | PATHOLOGY | [address] [...] + + + + | [facility] DEPARTMENT OF | [address] | [place] [address] | | | PATHOLOGY | [address] | | | + + + + + | [facility] DEPARTMENT OF | [address] | [place] [address] | | | PATHOLOGY | [address] [...] | + + + + + | [facility] | [address] [facility] | [place] [address] | | | PATHOLOGY | [address] | | | + + + + + | [facility] | [address] [facility] | [place] [address] | | | PATHOLOGY | [address] [...] [facility] | | | | PT INR | | DEPARTMENT | | | | Therapeutic ranges for | | OF | | | | full | | PATHOLOGY | | | | anticoagulation: | | | | | | INR for | | | | | | Venous | | | | | | Thromboembolism | | | | | | | | | | | | (2.0-3.0)INR | | | | | | INR for most | | | | | | patients with mech. | | | | | | valves (2.5-3.5)I | | | | | | NR | | | | + + + + + + + + | Specimen | + + | | + + + + + + + | Performing | Address | City/State/Zipcode | Phone Number | | Organization | | | | + + + + + | [facility] DEPARTMENT OF | [address] | [place] [address] | | | PATHOLOGY | [address] | | | + + + + + | [facility] DEPARTMENT OF | [address] | [place] [address] | | | PATHOLOGY | [address] [...] DEPARTMENT OF | [address] | [place] [address] | | | PATHOLOGY | [address] | | | + + + + + | [facility] DEPARTMENT OF | [address] [facility] | [place] [address] | | | PATHOLOGY | [address] [...] | + + + + + | [facility] | [address] [facility] | [place] [address] | | | PATHOLOGY | [address] | | | + + + + + | [facility] | [address] [facility] | [place] [address] | | | PATHOLOGY | [address] [...] + + + + | [facility] DEPARTMENT OF | [address] | [place] [address] | | | PATHOLOGY | [address] | | | + + + + + | [facility] DEPARTMENT OF | [address] | [place] [address] | | | PATHOLOGY | [address] [...] | | | | | performed at [facility] [place] | | | | | | [facility] [...] | + + + + + | [facility] | [address] | [place] [address] | | | LAB-MICRO | | | [...] catheter | | | | | | | | | | | | Culture: Final | | | | | | Report: No growth (< | | | | | | 1,000 col/ml) after | | | | | | 18-24 | | | | | | | | | | | | hours | | | | | | Final ReportComment: | | | | | | Test performed at | | | | | | [facility] | | | | | | [facility]. | | | | + + + + + + + + | Specimen | + + | | + + + + + + + | Performing | Address | City/State/Zipcode | Phone Number | | Organization | | | | + + + + + | [facility] | [address] | [place] [address] | | | LAB-MICRO | | | [...] | + + + + + | [facility] | [address] [facility] [address] [address] | [place] [address] | | | PATHOLOGY | [address] | | | + + + + + | [facility] | [address] [facility] [address] [address] [address] | [place] [address] | | | PATHOLOGY | [address] [...] | + + + + + | [facility] | [address] | [place] [address] | | | LABORATORY | | | [...] | | | | [facility] | [facility] | | | | | | Laboratories. | | | | + + + + + + + + | Specimen | + + | | + + + + + + + | Performing | Address | City/State/Zipcode | Phone Number | | Organization | | | | + + + + + | [facility] | [address] | [place] [address] | | | LABORATORY | | | [...] | | AB | Test performed by [facility] | | | | | | [facility] | | | | | | Laboratories. | | | | + + + + + + + + | Specimen | + + | | + + + + + + + | Performing | Address | City/State/Zipcode | Phone Number | | Organization | | | | + + + + + | [facility] | [address] | [place] [address] | | | LABORATORY | | | [...] | | | | | performed at [facility] | | | | | | [facility] [...] | + + + + + | [facility] | [address] | [place] [address] | | | LAB-MICRO | | | [...] + + + + | [facility] DEPARTMENT OF | [address] [facility] | [place] [address] | | | PATHOLOGY | [address] | | | + + + + + | [facility] DEPARTMENT OF | [address] [facility] | [place] [address] | | | PATHOLOGY | [address] [...] | + + + + + | [facility] | [address] [facility] [address] [facility] | [place] [address] | | | PATHOLOGY | [address] | | | + + + + + | [facility] | [address] [facility] | [place] [address] | | | PATHOLOGY | [address] [...] + + + + | [facility] DEPARTMENT OF | [address] | [place] [address] | | | PATHOLOGY | [address] | | | + + + + + | [facility] DEPARTMENT OF | [address] | [place] [address] | | | PATHOLOGY | [address] [...] | + + + + + | [facility] | [address] | [place] [address] | | | PATHOLOGY | [address] | | | + + + + + | [facility] | [facility] | [place] [address] | | | PATHOLOGY | [address] [...] [facility] | | | | PT INR | | DEPARTMENT | | | | Therapeutic ranges for | | OF | | | | full | | PATHOLOGY | | | | anticoagulation: | | | | | | INR for | | | | | | Venous | | | | | | Thromboembolism | | | | | | | | | | | | (2.0-3.0)INR | | | | | | INR for most | | | | | | patients with mech. | | | | | | valves (2.5-3.5)I | | | | | | NR | | | | + + + + + + + + | Specimen | + + | | + + + + + + + | Performing | Address | City/State/Zipcode | Phone Number | | Organization | | | | + + + + + | [facility] DEPARTMENT OF | [address] | [place] [address] | | | PATHOLOGY | [address] | | | + + + + + | [facility] DEPARTMENT OF | [address] [facility] | [place] [address] | | | PATHOLOGY | [address] [...] + + + + | [facility] DEPARTMENT OF | [address] | [place] [address] | | | PATHOLOGY | [address] | | | + + + + + | [facility] DEPARTMENT OF | [address] | [place] [address] | | | PATHOLOGY | [address] [...] + + + + | [facility] DEPARTMENT OF | [address] | [place] [address] | | | PATHOLOGY | [address] | | | + + + + + | [facility] DEPARTMENT OF | [address] | [place] [address] | | | PATHOLOGY | [address] [...] DEPARTMENT OF | [address] | [place], [facility] | | | PATHOLOGY | [address] | | | + + + + + | [facility] | [address] | [place] [address] | | | PATHOLOGY | [address] [...] | | | | | ABBEY MAURER | | | | | | CHEST: [phone] | | | | | | COMPARISON: None | | | | | | available. | | | | | | FINDINGS: There is | | | | | | minimal bibasilar | | | | | | subsegmental | | | | | | atelectasis,left greater | | | | | | than right. The lungs | | | | | | are otherwise | | | | | | clear. Thecardiac and | | | | | | mediastinal contours | | | | | | are normal. The | | | | | | osseousstructures are | | | | | | unremarkable. | | | | | | IMPRESSION: Minimal | | | | | | bibasilar subsegmental | | | | | | atelectasis, left | | | | | | greater | | | | | | thanright. Otherwise | | | | | | clear lungs. | | | | + + + [...] + + + + | [facility] DEPARTMENT OF | [address] | [place] [address] | | | PATHOLOGY | [address] | | | + + + + + | [facility] DEPARTMENT OF | [address] | [place] [address] | | | PATHOLOGY | [address] [...] | | | | the [facility] LabManual: | | | | | | [email or web address] | | | | | | [email or web address] [...] + + + + | [facility] DEPARTMENT OF | [facility] | [place] [address] | | | PATHOLOGY | [address] | | | + + + + + | [place] DEPARTMENT OF | [facility] | [place] [address] | | | PATHOLOGY | [address] [...] DEPARTMENT OF | [address] | [place] [address] | | | PATHOLOGY | [address] | | | + + + + + | [facility] DEPARTMENT OF | [address] | [place] [address] | | | PATHOLOGY | [address] [...] DEPARTMENT OF | [address] | [place] [address] | | | PATHOLOGY | [address] | | | + + + + + | [facility] DEPARTMENT | [address] | [place] [address] | | | PATHOLOGY | [address] [...] + + + + | [facility] DEPARTMENT | [address] | [place] [address] | | | PATHOLOGY | [address] | | | + + + + + | [facility] OF | [address] | [place] [address] | | | PATHOLOGY | [address] [...] [facility] | | | | PT INR | | DEPARTMENT | | | | Therapeutic ranges for | | OF | | | | full | | PATHOLOGY | | | | anticoagulation: | | | | | | INR for | | | | | | Venous | | | | | | Thromboembolism | | | | | | | | | | | | (2.0-3.0)INR | | | | | | INR for most | | | | | | patients with mech. | | | | | | valves (2.5-3.5)I | | | | | | NR | | | | + + + + + + + + | Specimen | + + | | + + + + + + + | Performing | Address | City/State/Zipcode | Phone Number | | Organization | | | | + + + + + | [facility] | [address] | [place] [address] | | | PATHOLOGY | [address] | | | + + + + + | [facility] | [address] | [place] [address] | | | PATHOLOGY | [address] [...] | [facility] | | | | APTT | seconds | DEPARTMENT | | | | Therapeutic | | OF | | | | Range | | PATHOLOGY | | | | | | | | | | (75-120)sec | | | | | | Hepa | | | | | | rin levels of 0.35-0.7 | | | | | | U/mL | | | | + + + + + + + + | Specimen | + + | | + + + + + + + | Performing | Address | City/State/Zipcode | Phone Number | | Organization | | | | + + + + + | [facility] DEPARTMENT | [address] | [place] [address] | | | PATHOLOGY | [address] | | | + + + + + | [facility] DEPARTMENT OF | [address] | [place] [address] | | | PATHOLOGY | [address] | | | + + + + + ALCOHOL SCRN, SERUM (06/26/2006 4:15 PM PDT) + + + + + + | Component | Value | Ref Range | Performed | Pathologist | | | | | At | Signature | + + + + + + | ETHANOL | Negative | mg/dL | [facility] | | | (ALCOHOL) | | | [...] + + + + | [facility] DEPARTMENT OF | [address] | [place] [address] | | | PATHOLOGY | [address] | | | + + + + + | [facility] DEPARTMENT OF | [address] [place] [address] GABY SRAVANTHI | [place] [address] | | | PATHOLOGY | [address] [...] | + + + + + | [facility] DEPARTMENT OF | [address] | [place] [address] | | | PATHOLOGY | [address] | | | + + + + + | [facility] DEPARTMENT OF | [address] | [place] [address] | | | PATHOLOGY | [address] | | | + + + + + MAGNESIUM, PLASMA (06/26/2006 4:15 PM PDT) + +-------+ + + + | Component | Value | Ref Range | Performed | Pathologist | | | | | At | Signature | + +-------+ + + + | MAGNESIUM,P | 2.3 | 1.8 - 2.5 mg/dL | [facility] | | | SAILAJAMA | | | [...] + + + + | [facility] DEPARTMENT OF | [address] | [place] [address] | | | PATHOLOGY | [address] | | | + + + + + | [facility] DEPARTMENT OF | [address] | [place] [address] | | | PATHOLOGY | [address] [...] | + + + + + | [facility] | [address] | [place] [address] | | | PATHOLOGY | [address] | | | + + + + + | [facility] | [address] | [place] [address] | | | PATHOLOGY | [address] [...] + + + + | [facility] DEPARTMENT OF | [address] | [place] [address] | | | PATHOLOGY | [address] | | | + + + + + | [facility] DEPARTMENT OF | [address] | [place] [address] | | | PATHOLOGY | [address] [...] + + | [facility] DEPARTMENT OF | [address] | [place] [address] | | | PATHOLOGY | [address] | | | + + + + + | [facility] DEPARTMENT OF | [address] | [place] [address] | | | PATHOLOGY | [address] [...] + + + + | [facility] DEPARTMENT OF | [address] | [place] [address] | | | PATHOLOGY | [address] | | | + + + + + | [facility] DEPARTMENT OF | [address] | [place] [address] | | | PATHOLOGY | [address] | | | + + + + + documented in this encounter Visit Diagnoses Not on filedocumented in this encounter"
--- OUTSIDE RECORDS SUMMARY | ~2019-08-09 | XMS | Encounter Summary ---
Demographics + + + | Address | [address] | | | [place] [address] | + + + | Home Phone [...] Team Providers + +------+ + | Care In Store Marketer Name | Role | Phone | + +------+ + | Miquel Calhoun MD | PCP | | + +------+ + Encounter Details +--------+ + + + + | Date | Type | Department | Care Team | Description | +--------+ + + + + | 09/13/ | Telephone | [facility] | Khushbu Cortez, | | | 2012 | | [facility] | DIE PRESSER [place], [place] | | | | | [address] | [address] | | | | | [address] | | | | | | Aravind Hannon | | | | | | [place], [place] | | | | | | [address] | | | | | | [phone] | | | +--------+ + + + [...]
--- OUTSIDE RECORDS SUMMARY | ~2019-08-09 | XMS | Encounter Summary ---
Demographics + + + | Address | [address] | | | [place] [address] | + + + | Home Phone [...] Team Providers + +------+ + | Care Sign Manufacturer Name | Role | Phone | + [...] + + | 07/30/ | Telephone | [facility] | Maykel Hutchins MD | Paperwork (Good | | 2019 | | [facility]ENTER | [address] | [facility] | | | | ORTHOPEDIC SPINE | [place], | Healthcare Orders) | | | | [address] [place] | [place] [address] | | | | | [place] | [phone] | | | | | [address] | | | | | | [phone] | | | +--------+ + + + [...] | | | | | [place] [address] | | | | | | [phone] | | | | | | | | +--------+---------+ + + + | 08/16/ | Office | Pain Medicine | Denys Sibley, | | | 2018 | Visit | | [address] | | | | | | [place] | | | | | | [id number] | | | | | | | | +--------+---------+ + + + documented as of this encounter Visit Diagnoses Not on filedocumented in this encounter"
--- OUTSIDE RECORDS SUMMARY | ~2019-08-09 | XMS | Encounter Summary ---
[...] Providers + +------+ + | Care Animal Ride Attendant Name | Role | Phone | [...] + + | 08/06/ | Telephone | [facility] | Maykel Hutchins MD | Medication Question | | 2019 | | NEUROS[facility]ENCE CENTER | [address] | | | | | ORTHOPEDIC SPINE | [place] | | | | | [address] [place] | [place] [address] | | | | | [place] | [phone] | | | | | [address] | | | | | | [phone] | | | +--------+ + + + [...] | | | | | [place] [address] | | | | | | [phone] | | | | | | | | +--------+---------+ + + + | 08/16/ | Office | Pain Medicine | Denys Sibley, | | | 2018 | Visit | | [address] | | | | | | [place] | | | | | | [address] | | | | | | | | +--------+---------+ + + + documented as of this encounter Visit Diagnoses Not on filedocumented in this encounter"
--- OUTSIDE RECORDS SUMMARY | ~2019-08-09 | XMS | Encounter Summary ---
Demographics + + + | Address | [address] | | | [place] [address] | + + + | Home Phone [...] Providers + +------+ + | Care Manager Database Administration Name | Role | Phone | + [...] for | | 2015 | | at [facility] [address] | [address] | new pt appt) | | | | [address] Mailcode: | [address] [place], | | | | | [facility] | [place] [address] | | | | | Health and Healing, | [phone] | | | | | [facility] | | | | | | Floor [place], [place] | | | | | | [address] | | | | | | [phone] | | | +--------+ + + + [...]
--- OUTSIDE RECORDS SUMMARY | ~2019-08-09 | XMS | Encounter Summary ---
Demographics + + + | Address | [address] | | | [place] [address] | + + + | Home Phone [...] Providers + +------+ + | Care Bedspread Inspector Name | Role | Phone | [...] | | | stenosis | B | [address] | | | | | | [place], [place] | Phone: | | | | | | [address] | [phone] | | | | | | Phone: | Fax: | | | | | | [phone] | [phone] | | | | | | Fax: | | | | | | | [phone] | | + +--------+ + + + + Encounter Details +--------+---------+ + + + | Date | Type | Department | Care Team | Description | +--------+---------+ + + + | 06/18/ | Office | [facility] | Denys Sibley, | SACROILIITIS | | 2018 | Visit | [facility] | DO [address] | (Primary Dx); | | | | [address] [place] | 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 Talk to your system operation superintendent regarding the use of this medicine in children. While this drug m ay be prescribed for children as young as newborns for selected conditions, precautions do a pply. What side effects may I notice from receiving this medicine? Side effects that you should report to your doctor or health home care giver as soon as p ossible: allergic reactions like skin rash, itching or hives, swelling of the face, lips, or tong ue breathing problems fast, irregular heartbeat high blood pressure pain that was controlled by narcotic pain medicine seizures Side effects that usually do not require medical attention (report to your doctor or health home care giver if they continue or are bothersome): anxious [...] phone number of your doctor or health home care giver and local hospital ready. You may need to have additional doses of this medicine. Each nasal spray contains a single dose. Some emergencies may require additional doses. After use, bring the treated person to the nearest hospital or call 911. Make sure the [facility] giver knows that the person has received an [...] mellitus, type 2 ([facility]) diet controlled Diarrhea Disorder of [...] therapy, mass age therapy, acupuncture, critical care technician, along with recommended psychological counseling , either privately, or in group sessions offered by private care individuals, community serv ices, or bahai organizations. Appropriate referrals were made at patient [...] to office in 4 weeks, [employer] ENTERTAINMENT DANCER was consulted and appears appropriate, Urine Toxicology [...] dysfunction are noted in men and women. [facility] men will suffer erectile dysfunction with [...] | | | | | [place] [address] | | | | | | [phone] | | | | | | | | +--------+---------+ + + + | 08/16/ | Office | Pain Medicine | Denys Sibley, | | | 2018 | Visit | | [address] | | | | | | [place] | | | | | | [address] | | | | | | | | +--------+---------+ + + + + +--------+ + + | Name | Priori | Associated Diagnoses | Order Schedule | | | ty | | | + +--------+ + + | Drugs of Abuse, Panel, Pain | Routin | [facility] current | Expected: | | Management 2, [...] pain Backache, unspecified | + + | [facility] current use of opiate analgesic Encounter for long-term (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 of | | other medications | + + documented in this encounter
--- OUTSIDE RECORDS SUMMARY | ~2019-08-09 | XMS | Encounter Summary ---
Demographics + + + | Address | [address] | | | [place] [address] | + + + | Home Phone [...] Team Providers + +------+ + | Care Radiology Physician Assistant Name | Role | Phone | + +------+ + | Romy De La Paz MD | PCP | | + +------+ + Encounter Details +--------+ + + + + | Date | Type | Department | Care Team | Description | +--------+ + + + + | 09/18/ | Clinical | [facility] | | Radiculopathy of | | 2019 | Support | NEUROSURGERY [address] | | thoracolumbar | | | | [address] [place] | | region; | | | | [place], [place] | | Postlaminectomy | | | | [address] | | syndrome, thoracic | | | | [phone] | | region | +--------+ + + [...] Weight | 50.8 kg (112 lb) | 07/18/20191242 PDT | + + + + | Height | 154.9 cm (5' 1") | 07/18/20191242 PDT | + + + + | Body Mass Index | 21.16 | 07/18/20191242 PDT | + + + + documented in this encounter Patient Instructions Patient Instructions Niki Pizarro RN - 07/18/2019 12:45 PDTPreOp Instructions: -Discontinue aspirin, coumadin, heparin, etc [...] concerns feel free to call us at [phone]. documented in this encounter Progress Notes Niki Pizarro RN - 07/18/2019 1245 PDTPatient presents for pre-op visit re: their schedu led T9-10 laminectomy for placement of spinal cord stimulator on 08/03/19. Patient reports p re-op symptoms of chronic thoracic and lumbar spine pain. Surgical informed consent signed b y patient and witnessed per Dr. Hutchins 's [...] UTI's as well. Patient was sent to [facility] for their scheduled pre-admit appointment, anesthesia consult, lab draw, EKG and chest xray. Orders entered per Dr. Hutchins's preference and hospital guidelines. Patient was given an appointment reminder for their first post-op visit on 08/16/19 @ 4606 and instructed to call in the interim with any problems or concerns. documented in this encou nter Plan of [...] | | | | | [place] [address] | | | | | | [phone] | | | | | | | | +--------+---------+ + + + | 08/16/ | Office | Pain Medicine | Denys Sibley, | | | 2018 | Visit | | [address] | | | | | | [place] | | | | | | [address] | | | | | | | | +--------+---------+ + + + documented as of this encounter Visit Diagnoses + + | Diagnosis | + + | Radiculopathy of thoracolumbar region Thoracic or lumbosacral neuritis or | | radiculitis, unspecified | + + | Postlaminectomy syndrome, thoracic region | + + documented in this encounter
--- OUTSIDE RECORDS SUMMARY | ~2019-08-09 | XMS | Encounter Summary ---
Demographics + + + | Address | [address] | | | [place] [address] | + + + | Home Phone [...] Providers + +------+ + | Care Marketing Communications Manager Name | Role | Phone | [...] | | [address] [place] | [place] [address] | | | | | [place] | [phone] | | | | | [address] | | | | | | [phone] | | | +--------+ + + + [...] | | | | | [place] [address] | | | | | | [phone] | | | | | | | | +--------+---------+ + + + | 08/16/ | Office | Pain Medicine | Denys Sibley, | | | 2018 | Visit | | [address] | | | | | | [place] | | | | | | [address] | | | | | | | | +--------+---------+ + + + documented as of this encounter Visit Diagnoses Not on filedocumented in this encounter"
--- OUTSIDE RECORDS SUMMARY | ~2019-08-09 | XMS | Encounter Summary ---
Demographics + + + | Address | [address] | | | [place] [address] | + + + | Home Phone [...] Team Providers + +------+ + | Care Copy Director Name | Role | Phone | [...] | | 2016 | Encounter | at [facility] [address] | [address] | [place] | | | | [address] Mailcode: | [address] [place], | | | | | [address] | [place] [address] | | | | | Health and Healing, | [phone] | | | | | | | | | | | Floor [place], [place] | | | | | | [address] | | | | | | [phone] | | | +--------+ + + + [...]
--- OUTSIDE RECORDS SUMMARY | ~2019-08-09 | XMS | Encounter Summary ---
Demographics + + + | Address | [address] | | | [place] [address] | + + + | Home Phone [...] + + | Author | [facility] | + + + | Organization | [facility] | + + + | Address | Unknown | + + + | Phone | Unavailable | + + + Support + + +---------+ + | Name | Relationship | Address | Phone | + + +---------+ + | Royce Menchaca | ECON | Unknown | | + + +---------+ + Care Team Providers + +------+ + | Care Doggy Daycare Activities Director Name | Role | Phone | [...] Management | | 2016 | | at [facility] [address] | [address] | (follow up BPs) | | | | [address] Mailcode: | [address] [place], | | | | | [facility] | [place] [address] | | | | | Health and Healing, | [phone] | | | | | Building | | | | | | Floor [place], [place] | | | | | | [address] | | | | | | [phone] | | | +--------+ + + + [...]
--- OUTSIDE RECORDS SUMMARY | ~2019-08-09 | XMS | Encounter Summary ---
Demographics + + + | Address | [address] | | | [place] [address] | + + + | Home Phone [...] Team Providers + +------+ + | Care Activity Aide Name | Role | Phone | [...] + + | 07/05/ | Telephone | [facility] | Maykel Hutchins MD | Advice Only; Other | | 2019 | | NEUROSCIENCE CENTER | [address] | (inform office) | | | | ORTHOPEDIC SPINE | [place] | | | | | [address] [place] | [place] [address] | | | | | [place] | [phone] | | | | | [address] | | | | | | [phone] | | | +--------+ + + + [...] | | | | | | [place] [address] | | | | | | [phone] | | | | | | | | +--------+---------+ + + + | 08/16/ | Office | Pain Medicine | Denys Sibley, | | | 2018 | Visit | | DO [address] | | | | | | DRIVE [place] | | | | | | [address] | | | | | | | [...]
--- OUTSIDE RECORDS SUMMARY | ~2019-08-09 | XMS | Encounter Summary ---
Demographics + + + | Address | [address] | | | [place] [address] | + + + | Home Phone [...] + | Author | [facility] (Historical as of | | | 06-16-19) | + + + | Organization | [facility] (Historical as of | | [...] + +------+ + | Care Pipe Fitter Supervisor Name | Role | Phone | + +------+ + | Romy De La Paz MD | PCP | | + +------+ + Encounter Details +--------+---------+ + + + | Date | Type | Department | Care Team | Description | +--------+---------+ + + + | 08/03/ | Surgery | [facility] | Maykel Hutchins MD | SPINAL [place]ORD | | 2019 | | [facility] | [address] | STIMULATOR - | | | | Operating Room [address] | [place] [address] | THORACIC LAMINECTOMY | | | | [address] | [phone] | | | | | [place] [address] | | | | | | [phone] | | | +--------+---------+ + + + [...] [address] | | | | | | [place] [address] | | | | | | [phone] | | | | | | | | +--------+---------+ + + + as of this encounter Visit Diagnoses Not on filein this encounter Admitting Diagnoses + + | Diagnosis | + + | M96.1 M54.16 M54.17 | + +"
--- OUTSIDE RECORDS SUMMARY | ~2019-08-09 | XMS | Encounter Summary ---
Demographics + + + | Address | [address] | | | [place] [address] | + + + | Home Phone [...] + +------+ + | Care Watch Parts Grinder Name | Role | Phone | + +------+ + PCP | Unavailable | + +------+ + Encounter Details +--------+ + + + + | Date | Type | Department | Care Team | Description | +--------+ + + + + | 06/26/ | Respiratory | | Other, Faculty | | | 2006 | Therapy | | [phone] | | +--------+ + + + + [...] [facility] | [address] | [place], [place] | | | DIAGNOSTICS - | [address] | [address] | | | PULMONARY FUNCTION | | | | + + + + + documented in this encounter Visit Diagnoses Not on filedocumented in this encounter"
--- OUTSIDE RECORDS SUMMARY | ~2019-08-09 | XMS | Encounter Summary ---
Demographics + + + | Address | [address] | | | [place] [address] | + + + | Home Phone [...] Team Providers + +------+ + | Care Test Deck Supervisor Name | Role | Phone | + +------+ + | Miquel Calhoun MD | PCP | | + +------+ + Encounter Details +--------+ + + + + | Date | Type | Department | Care Team | Description | +--------+ + + + + | 09/17/ | Telephone | [facility] | Khushbu Cortez, | | | 2012 | | [facility] | MANAGER CONVENTION [place], [place] | | | | | [address] | [address] | | | | | [address] | | | | | | [address] | | | | | | [place], [place] | | | | | | [address] | | | | | | [phone] | | | +--------+ + + + [...]
--- OUTSIDE RECORDS SUMMARY | ~2019-08-09 | XMS | Encounter Summary ---
Demographics + + + | Address | [address] | | | [place] [address] | + + + | Home Phone [...] Team Providers + +------+ + | Care Spiritual Counselor Name | Role | Phone | + +------+ + | Romy De La Paz MD | PCP | | + +------+ + Encounter Details +--------+ + + + + | Date | Type | Department | Care Team | Description | +--------+ + + + + | 07/17/ | Prep for | [facility] | Maykel Hutchins MD | Chronic low back | | 2019 | Procedure | [facility] | [address] | pain with sciatica, | | | | ORTHOPEDIC SPINE | [place], | sciatica laterality | | | | [address] [place] | [place] [address] | unspecified, | | | | [facility] [place] | [phone] | unspecified back | | | | [address] | | pain laterality | | | | [phone] | | (Primary Dx); Right | | [...] | | | | | [place] [address] | | | | | | [phone] | | | | | | | | +--------+---------+ + + + | 08/16/ | Office | Pain Medicine | Denys Sibley, | | | 2018 | Visit | | DO [address] | | | | | | [place] | | | | | | [address] | | | | | | | [...]
--- OUTSIDE RECORDS SUMMARY | ~2019-08-09 | XMS | Encounter Summary ---
Demographics + + + | Address | [address] | | | [place] [address] | + + + | Home Phone [...] Providers + +------+ + | Care Air Deodorizer Servicer Name | Role | Phone | [...] | Pain | Diagnoses | Cr, | Lathe Setup Operator Chh1 | | | | Management | PPS (pelvic | MD Britta | [address] | | | | | pain | [address] | | | | | syndrome) | [facility] | Mailcode: | | | | | Procedures | Rd | [facility] | | | | | CONSULT TO | [facility] [place] | for Health | | | | | PAIN CENTER | [address] | and Healing, | | | | | | Phone: | Building | | | | | | [phone] | 1,15th Floor | | | | | | Fax: | [place], [place] | | | | | | [phone] | [address] | | | | | | | Phone: | | | | | | | [phone] | | | | | | | Fax: | | | | | | | [phone] | +--------+--------+ + + + + Reason [...] | | | | | symptom | [place] | [address] | | | | | associated | [place] | Juliana [address]te | | | | | with female | Urology [address] | [place] | | | | | genital | [address] | Pavilion | | | | | organs | [address] [place], | [place], [place] | | | | | Unspecified | [place] [address] | [address] | | | | | urinary | Phone: | Phone: | | | | | incontinence | [phone] | [phone] | | | | | | Fax: | Fax: | | | | | | [phone] | [phone] | +--------+--------+ + + + + Encounter Details +--------+---------+ + + + | Date | Type | Department | Care Team | Description | +--------+---------+ + + + | 11/29/ | Office | [facility] | Britta Hankins MD | PPS (pelvic pain | | 2014 | Visit | [facility] [place] | [address] | syndrome) (Primary | | | | [address] | [address]iana [address] [place], | Dx); Depression with | | | | [address] | [place] [address] | suicidal ideation; | | | | Aravind Hannon | [phone] | Recurrent UTI; | | | | [place], [place] | | Hypoestrogenism | | | | [address] | | | | | | [phone] | | | +--------+---------+ + + + [...] 4. Referral to pain service here at [facility] 5. Let me know [...] (2 vag, 1 cs, she had to [facility] hospitalized after her second delivery for infection) seen at the request of Dr. Ck wan r pelvic pain and LUTs following pelvic reconstructive surgery. She is accompanied by her so sadiq Ball. He lives here in [place] so he is not fully aware of her recent health issues but h e did help in providing some of his mother's past history. 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 Long gold, she was hospitalized at [facility] in 2005 for a [...] speaker, a good grandmother". Her physicians in [place] and elsewhere will not pre scribe pain [...] until she was able to leave her [place] house at age 20. Her aunt recently [...] estrogenization of the vulvova ginal tissues; negative CERTIFIED INDUSTRIAL HYGIENIST; no hypospadias of the urethra; + tenderness [...] F/U with Dr. Stover on return to [place]. I am Christine Monterroso functioning as a scribe for Dr. Britta Hankins. Christine Monterroso [facility] [address] [facility] [place] [address] I have reviewed, verified, and amended the [...] for afternoon appointments. Britta Hankins M.D., FACS Groundskeeper Supervisor [facility] Urology Clinic documented in this encoun [...]
--- OUTSIDE RECORDS SUMMARY | ~2019-08-09 | XMS | Encounter Summary ---
Demographics + + + | Address | [address] | | | [place] [address] | + + + | Home Phone [...] Providers + +------+ + | Care Ship Runner Name | Role | Phone | + +------+ + PCP | Unavailable | + +------+ + Encounter Details +--------+ + + + + | Date | Type | Department | Care Team | Description | +--------+ + + + + | 06/26/ | Respiratory | | Other, Faculty | | | 2006 | Therapy | | [phone] | | +--------+ + + + + [...] Hassan, | | | | | | GLOVE CLEANER | | | | + + + [...] RADHA ALONZO | [address] | [place], [place] | | | DIAGNOSTICS - | [place] | [address] | | | PULMONARY FUNCTION | | | | + + + + + documented in this encounter Visit Diagnoses Not on filedocumented in this encounter"
--- OUTSIDE RECORDS SUMMARY | ~2019-08-09 | XMS | Encounter Summary ---
Demographics + + + | Address | [address] | | | [place] [address] | + + + | Home Phone [...] Team Providers + +------+ + | Care Purse Framer Name | Role | Phone | + [...] + + | 07/30/ | Telephone | [facility] | Maykel Hutchins MD | Paperwork (Good | | 2019 | | NEUROSCIENCE CENTER | [address] | [facility] | | | | ORTHOPEDIC SPINE | [place], | Healthcare Orders) | | | | [address] [place] | [place] [address] | | | | | [place] | [phone] | | | | | [address] | | | | | | [phone] | | | +--------+ + + + [...] | | | | | [place] [address] | | | | | | [phone] | | | | | | | | +--------+---------+ + + + | 08/16/ | Office | Pain Medicine | Denys Sibley, | | | 2018 | Visit | | [address] | | | | | | [place] | | | | | | [address] | | | | | | | | +--------+---------+ + + + documented as of this encounter Visit Diagnoses Not on filedocumented in this encounter"
--- OUTSIDE RECORDS SUMMARY | ~2019-08-09 | XMS | Encounter Summary ---
Demographics + + + | Address | [address] | | | [place] [address] | + + + | Home Phone [...] Team Providers + +------+ + | Care Paleology Teacher Name | Role | Phone | + +------+ + | Romy De La Paz MD | PCP | | + +------+ + Encounter Details +--------+ + + + + | Date | Type | Department | Care Team | Description | +--------+ + + + + | 09// | Hospital | [facility] | Maykel Hutchins MD | | | 2019 | Encounter | [facility] | [address] | | | | | [address] | [place], | | | | | [place], [place] | [place] [address] | | | | | [address] | [phone] | | | | | [phone] | | | +--------+ + + + [...] Decreased | | | | | | alf current | Responsiveness (May | | | [...] | | | | | [place] [address] | | | | | | [phone] | | | | | | | | +--------+---------+ + + + | 08/16/ | Office | Pain Medicine | Denys Sibley, | | | 2018 | Visit | | [address] | | | | | | [address]IVE [place] | | | | | | [address] | | | | | | | [...]
--- OUTSIDE RECORDS SUMMARY | ~2019-08-09 | XMS | Encounter Summary ---
Demographics + + + | Address | [address] | | | [place] [address] | + + + | Home Phone [...] + | Author | [facility] (Historical as of | | | 06-16-19) | + + + | Organization | [facility] (Historical as of | | | [...] Team Providers + +------+ + | Care Shipper/Receiver Name | Role | Phone | + [...] | | | | | spinal | [place], | [place], [place] | | | | | stenosis | [place] [address] | [address] Phone: | | | | | | Phone: | [phone] | | | | | | [phone] | Fax: | | | | | | Fax: | [phone] | | | | | | [phone] | | + + + + + + + Encounter Details +--------+---------+ + + + | Date | Type | Department | Care Team | Description | +--------+---------+ + + + | 05/14/ | Office | [facility] | Denys Sibley, | Intractable back | | 2018 | Visit | [facility] | DO [address] | pain (Primary Dx); | | | | [address] | [place] [address] [facility] | Closed compression | | | | [place], [place] | [address] | fracture of fifth | | | | [address] | | lumbar vertebra, | | | | [phone] | | sequela; | | | | [...] anterior c hest wall q72 hours, and [place] 7.5/325 one po q6 hours prn breakthrough [...] to physical therapy, mass age therapy, acupuncture, rehab care assistant, along with recommended psychological counseling , either privately, or in group sessions offered by private care individuals, community serv ices, or confucianist organizations. Appropriate referrals were made at patient [...] the anterior chest wall q72 hours, and [place] 7.5/325 one po q6 hours prn breakthrough patient states that she is going to spend 4-6 weeks in a rehabi litation facility for gambling. And requested early refill of her medications we brought angie dahl on the prescription wish her luck in her endeavor Patient understands and is in full agreement with the above plan, Will return to office in 4 weeks, [facility] was consulted and appears appropriate, Urine [...] [address] | | | | | | [place] [address] | | | | | | [phone] | | | | | | | [...]
--- OUTSIDE RECORDS SUMMARY | ~2019-08-09 | XMS | Encounter Summary ---
Demographics + + + | Address | [address] | | | [place] [address] | + + + | Home Phone [...] Providers + +------+ + | Care Director Traffic And Planning Name | Role | Phone | [...]
--- OUTSIDE RECORDS SUMMARY | ~2019-08-09 | XMS | Encounter Summary ---
Demographics + + + | Address | [address] | | | [place] [address] | + + + | Home Phone [...] Team Providers + +------+ + | Care Spooling Operator Name | Role | Phone | [...] | | 2016 | Encounter | at [facility] [address] | [address] [facility] | | | | | [address] [place] Mailcode: | [address] [place], | | | | | [address] [facility] | [place] [address] | | | | | Health and Healing, | [phone] | | | | | [facility] | | | | | | Floor [place], [place] | | | | | | [address] | | | | | | [phone] | | | +--------+ + + + [...]
--- OUTSIDE RECORDS SUMMARY | ~2019-08-09 | XMS | Encounter Summary ---
Demographics + + + | Address | [address] | | | [place] [address] | + + + | Home Phone [...] Team Providers + +------+ + | Care Arc Welder Name | Role | Phone | + +------+ + | Romy De La Paz MD | PCP | | + +------+ + Encounter Details +--------+ + + + + | Date | Type | Department | Care Team | Description | +--------+ + + + + | 09/18/ | Clinical | [facility] | | Radiculopathy of | | 2019 | Support | NEUROSURGERY [address] | | thoracolumbar | | | | [address] | | region; | | | | [place], [place] | | Postlaminectomy | | | | [address] | | syndrome, thoracic | | | | [phone] | | region | +--------+ + + [...] concerns feel free to call us at [phone]. documented in this encounter Progress Notes Niki [...] UTI's as well. Patient was sent to [facility] for their scheduled pre-admit appointment, anesthesia consult, lab draw, EKG and chest xray. Orders entered per Dr. Hutchins's preference and hospital guidelines. Patient was given an appointment reminder for their first post-op visit on 08/16/19 @ 6711 and instructed to call in the interim [...] | | | | | [place] [address] | | | | | | [phone] | | | | | | | | +--------+---------+ + + + | 08/16/ | Office | Pain Medicine | Denys Sibley, | | | 2018 | Visit | | [address] | | | | | | [place] | | | | | | [address] | | | | | | | | +--------+---------+ + + + documented as of this encounter Visit Diagnoses + + | Diagnosis | + + | Radiculopathy of thoracolumbar region Thoracic or lumbosacral neuritis or | | radiculitis, unspecified | + + | Postlaminectomy syndrome, thoracic region | + + documented in this encounter
--- OUTSIDE RECORDS SUMMARY | ~2019-08-09 | XMS | Encounter Summary ---
Demographics + + + | Address | [address] | | | [place] [address] | + + + | Home Phone [...] Team Providers + +------+ + | Care Astronautical Engineer Name | Role | Phone | [...] | | | | | Juliana [place], | | | | | | [place] [address] | | | +--------+ + + + [...]
--- OUTSIDE RECORDS SUMMARY | ~2019-08-09 | XMS | Encounter Summary ---
Demographics + + + | Address | [address] | | | [place] [address] | + + + | Home Phone [...] Author | [facility] [employer] (Historical as of | | | 06-16-19) | + + + | Organization | [facility] (Historical as of | | | [...] Team Providers + +------+ + | Care Rodeo Performer Name | Role | Phone | + [...] + + | 05/25/ | Telephone | [facility] | Denys Sibley, | Medication Question | | 2019 | | [facility] | DO [address] | | | | | [address] | [place], [place] | | | | | [place], [place] | [address] | | | | | [address] | | | | | | [phone] | | | +--------+ + + + [...] [address] | | | | | | [place] [address] | | | | | | [phone] | | | | | | | | +--------+---------+ + + + as of this encounter Visit Diagnoses Not on filein this encounter"
--- OUTSIDE RECORDS SUMMARY | ~2019-08-09 | XMS | Encounter Summary ---
Demographics + + + | Address | [address] | | | [place] [address] | + + + | Home Phone [...] | Author | [facility] [employer] (Historical as of | | | 06-16-19) | + + + | Organization | [facility] (Historical as of | | | [...] Team Providers + +------+ + | Care Bank Analyst Name | Role | Phone | [...] | | | | | spinal | [place], | [place], [place] | | | | | stenosis | [place] [address] | [address] Phone: | | | | | | Phone: | [phone] | | | | | | [phone] | Fax: | | | | | | Fax: | [phone] | | | | | | [phone] | | + + + + + + + Encounter Details +--------+---------+ + + + | Date | Type | Department | Care Team | Description | +--------+---------+ + + + | 05/14/ | Office | [facility] | Denys Sibley, | Intractable back | | 2018 | Visit | [facility] | DO [address] | pain (Primary Dx); | | | | [address] | [place] [facility] [place] | Closed compression | | | | [place] | [address] | fracture of fifth | | | | [address] | | lumbar vertebra, | | | | [phone] | | sequela; | | | | [...] anterior c hest wall q72 hours, and [place] 7.5/325 one po q6 hours prn breakthrough [...] to physical therapy, mass age therapy, acupuncture, acute care nursing assistant, along with recommended psychological counseling , either privately, or in group sessions offered by private care individuals, community serv ices, or buddhist organizations. Appropriate referrals were made at patient [...] the anterior chest wall q72 hours, and [place] 7.5/325 one po q6 hours prn breakthrough patient states that she is going to spend 4-6 weeks in a rehabi litation facility for gambling. And requested early refill of her medications we brought angie dahl on the prescription wish her luck in her endeavor Patient understands and is in full agreement with the above plan, Will return to office in 4 weeks, [facility] was consulted and appears appropriate, [...] | | | | | [place] [address] | | | | | | [phone] | | | | | | | [...]
--- OUTSIDE RECORDS SUMMARY | ~2019-08-09 | XMS | Encounter Summary ---
Demographics + + + | Address | [address] | | | [place] [address] | + + + | Home Phone [...] Providers + +------+ + | Care Gis Engineer Name | Role | Phone | [...] | | 2016 | Encounter | at [facility] [address] | [address] | | | | | [place] Mailcode: | [address] [place], | | | | | [address] | [place] [address] | | | | | Health and Healing, | [phone] | | | | | | | | | | | Floor [place], [place] | | | | | | [address] | | | | | | [phone] | | | +--------+ + + + [...]
--- OUTSIDE RECORDS SUMMARY | ~2019-08-09 | XMS | Encounter Summary ---
Demographics + + + | Address | [address] | | | [place] [address] | + + + | Home Phone [...] Team Providers + +------+ + | Care Spd Manager Name | Role | Phone | [...] | | | | | | | ME SURG | | | | | | | IMPLNT | | | | | | | NEUROELECT,E | | | | | | | PIDURAL ME | | | | | | | IMPLANT | | | | | | | NEUROSTIM/RE | | | | | | | CEIVER ME | | | | | | | [...] CRNA | | | 2019 | Event [facility] | [address] | | | | | OPERATING RO[address] | [place] [address] | | | | | [address] | [phone] | | | | | [place], [place] | | | | | | [address] | | | | | | [phone] | | | +--------+ + + + [...] +----+---+ + + | | 0 | [place] | | | | 9 | 43-degrees [...] 1506 by | | eral | Antecubital; [id number] | Mikayla Marcial, | Gamal Whitney, | [...] via | Yojana Arellano CRNA | Yojana Arellaon CRNA | | | procedure documentation); Mask [...] | | | | | | [place] [address] | | | | | | [phone] | | | | | | | | +--------+---------+ + + + | 08/16/ | Office | Pain Medicine | Denys Sibley, | | | 2018 | Visit | | [address] | | | | | | [place] | | | | | | [address] | | | | | | | [...] CRNA - 08/03/2019 0952 PDT Anesthesia Airway [id number]/4/2019 | | 9:33Preprocedure check: patient identified, oxygen, [...]
--- OUTSIDE RECORDS SUMMARY | ~2019-08-09 | XMS | Encounter Summary ---
Demographics + + + | Address | [address] | | | [place] [address] | + + + | Home Phone [...] Team Providers + +------+ + | Care Capacitor Repairer Name | Role | Phone | [...] | | 2019 | Procedure | [facility] | [address] | pain with sciatica, | | | | ORTHOPEDIC SPINE | [place], | sciatica laterality | | | | [address] [place] | [place] [address] | unspecified, | | | | [facility] [place] [place] | [phone] | unspecified back | | | | [address] | | pain laterality | | | | [phone] | | (Primary Dx); Right | | [...] | | | | | [place] [address] | | | | | | [phone] | | | | | | | | +--------+---------+ + + + | 08/16/ | Office | Pain Medicine | Denys Sibley, | | | 2018 | Visit | | DO [address] | | | | | | [place] | | | | | | [address] | | | | | | | [...]
--- OUTSIDE RECORDS SUMMARY | ~2019-08-09 | XMS | Encounter Summary ---
Demographics + + + | Address | [address] | | | [place] [address] | + + + | Home Phone [...] Team Providers + +------+ + | Care Wheel Inspector Name | Role | Phone | [...] 2012 | | [facility] | [address] | (Dr. Holbrook) | | | | [address] | [address] | | | | | [address] | [place], [place] | | | | | [facility] | [address] | | | | | [place], [place] | [phone] | | | | | [address] | | | | | | [phone] | | | +--------+ + + + [...]
--- OUTSIDE RECORDS SUMMARY | ~2019-08-09 | XMS | Encounter Summary ---
Demographics + + + | Address | [address] | | | [place] [address] | + + + | Home Phone [...] Team Providers + +------+ + | Care Mill Machinist Name | Role | Phone | + [...] | | 2012 | | [facility] | [address] | | | | | [address] | [place] [place], | | | | | [address] | [place] [address] | | | | | Aravind Hannon | [phone] | | | | | [place], [place] | | | | | | [address] | | | | | | [phone] | | | +--------+ + + + [...]
--- OUTSIDE RECORDS SUMMARY | ~2019-08-09 | XMS | Encounter Summary ---
Demographics + + + | Address | [address] | | | [place] [address] | + + + | Home Phone [...] Team Providers + +------+ + | Care Electoral Officer Name | Role | Phone | [...] | | 2016 | Encounter | at [facility] [address] | [address] | test results | | | | [place] Mailcode: | [address] [place], | | | | | [address] | [place] [address] | | | | | Health and Healing, | [phone] | | | | | | | | | | | Floor [place], [place] | | | | | | [address] | | | | | | [phone] | | | +--------+ + + + [...]
--- OUTSIDE RECORDS SUMMARY | ~2019-08-09 | XMS | Encounter Summary ---
Demographics + + + | Address | [address] | | | [place] [address] | + + + | Home Phone [...] Team Providers + +------+ + | Care Sheriffs Officer Name | Role | Phone | + +------+ + | Wendi Aiken | PCP | | + +------+ + Encounter Details +--------+ + + + + | Date | Type | Department | Care Team | Description | +--------+ + + + + | 05/21/ | Orders Only | [facility] | Provider, | | | 2018 | | SYSTEM GENERIC OP | MD [address] | | | | | CONVERSION [address] | [place] | | | | | [address] [place], [place] | [place] [address] | | | | | [address] | | | | | | [phone] | | | +--------+ + + + [...] | | | | | [place] [address] | | | | | | [phone] | | | | | | | | +--------+---------+ + + + | 08/16/ | Office | Pain Medicine | Denys Sibley, | | | 2018 | Visit | | DO [address] | | | | | | [place] | | | | | | [address] | | | | | | | | +--------+---------+ + + + documented as of this encounter Visit Diagnoses Not on filedocumented in this encounter"
--- OUTSIDE RECORDS SUMMARY | ~2019-08-09 | XMS | Encounter Summary ---
Demographics + + + | Address | [address] | | | [place] [address] | + + + | Home Phone [...] Team Providers + +------+ + | Care Accuracy Expert Name | Role | Phone | + +------+ + PCP | Unavailable | + +------+ + Encounter Details +--------+ + + + + | Date | Type | Department | Care Team | Description | +--------+ + + + + | 06/26/ | Respiratory | | Other, Faculty | | | 2006 | Therapy | | [phone] | | +--------+ + + + + [...] Hassan, | | | | | | SPORT[employer]ONS | | | | + + + [...] [facility] | [address] | [place], [place] | | | DIAGNOSTICS - | [place] | [address] | | | PULMONARY FUNCTION | | | | + + + + + documented in this encounter Visit Diagnoses Not on filedocumented in this encounter"
--- OUTSIDE RECORDS SUMMARY | ~2019-08-09 | XMS | Encounter Summary ---
Demographics + + + | Address | [address] | | | [place] [address] | + + + | Home Phone [...] Providers + +------+ + | Care Combat Information Center Officer Name | Role | Phone | [...] LAMINOTOMY THORACIC | | 2019 | | [facility] | [address] | / LUMBAR W/ | | | | OPERATING ROOM [address] | [place] | PLACEMENT SPINAL | | | | [address] | [place] [address] | CORD STIMULATOR | | | | [place] | [phone] | | | | | [address] | | | | | | [phone] | | | +--------+---------+ + + + [...] by elevating your feet Date Last Reviewed: 3261-0618 [employer]. [address] [place] [address]. All righ ts reserved. This information is not intended as a substitute for professional medical care. Always follow your healthcare professional's instructions. Acetaminophen; Hydrocodone tablets or capsules Brand Names: Anexsia, Lorcet, Lorcet HD, Lorcet Plus, Lortab, Dalton, Verdrocet, Vicodin, Vi codin ES, Vicodin HP, [...] information carefully each time. Talk to your horticultural specialty grower inside regarding the use of this medicine in children. Special care may be needed. What side effects may I notice from receiving this medicine? Side effects that you should report to your doctor or health wound care center consultant as soon as p ossible: allergic reactions [...] to your doctor or health wound care center consultant if they continue or are bothersome): constipation [...] to an official disposal site. Contact the [facility] at [phone] or your [facility] to find a site. If [...] Tell your doctor or health wound care center consultant if your pain does not go away, [...] Amador Faria MSW - 08/04/2019 1412 PDTCase construction manager sent out Home Health order to [...] her up today to go home to [facility]. Past Medical History: Diagnosis Date Acid reflux disease Acute renal failure ([facility]) April 2013 Adverse effect of anesthesia hx hallucinations after anesthesia x 3 yrs ago. Anesthesia hallucinated after bladder repair Arthralgia Arthritis Asthma Asthma Back pain Cancer ([facility]) 2004 breast Cataract Cerebrovascular accident (CVA) ([facility]) no per pt Chronic back pain Chronic back pain Chronic constipation Concussion 07/2015 Preceeded by seizure Constipation COPD (chronic obstructive pulmonary disease) ([facility]) Degenerative disc disease Depression Depression Diabetes mellitus ([facility]) Diabetes mellitus, type 2 ([facility]) diet controlled Diabetes type 2, controlled ([facility]) diet controlled Diarrhea Disorder of thyroid Diverticulosis [...] | | | | | [place] [address] | | | | | | [phone] | | | | | | | | +--------+---------+ + + + | 08/16/ | Office | Pain Medicine | Denys Sibley, | | | 2018 | Visit | | [address] | | | | | | [address] [place] | | | | | | [address] | | | | | | | [...] | | | Needs | | | SALESPERSON HANDBAGS | | | reques | | | [...] | | | POC | performed at [facility];888 | | LABORATORY | | | | [address];[place] | | | | | | [address] | | | | + + + + + + + + | Specimen | + + | | + + + + + + + | Performing | Address | City/State/Zipcode | Phone Number | | Organization | | | | + + + + + | [facility] | [address] | [place] [address] | [phone] | + + + + + POC Glucose (08/03/2019 16:15 PDT) + + + + + + | Component | Value | Ref Range | Performed | Pathologist | | | | | At | Signature | + + + + + + | Glucose, | 99Comment: Testing | 65 - 99 mg/dL | [facility] | | | POC | performed at [facility];[address] | | LABORATORY | | | | [address];[place] | | | | | | [address] | | | | + + + + + + + + | Specimen | + + | | + + + + + + + | Performing | Address | City/State/Zipcode | Phone Number | | Organization | | | | + + + + + | [facility] | [address] | [place] [address] | [phone] | + + + + + POC Glucose (08/03/2019 13:08 PDT) + + + + + + | Component | Value | Ref Range | Performed | Pathologist | | | | | At | Signature | + + + + + + | Glucose, | 107 (H)Comment: Testing | 65 - 99 mg/dL | [facility] | | | POC | performed at [facility];[address] | | LABORATORY | | | | [address];[place], [place] | | | | | | [address] | | | | + + + + + + + + | Specimen | + + | | + + + + + + + | Performing | Address | City/State/Zipcode | Phone Number | | Organization | | | | + + + + + | [facility] | [address] | [place] [address] | [phone] | + + + + + POC Glucose (08/03/2019 11:05 PDT) + + + + + + | Component | Value | Ref Range | Performed | Pathologist | | | | | At | Signature | + + + + + + | Glucose, | 108 (H)Comment: Testing | 65 - 99 mg/dL | [facility] | | | POC | performed at [facility];[address] | | LABORATORY | | | | [address];[place], [place] | | | | | | [address] | | | | + + + + + + + + | Specimen | + + | | + + + + + + + | Performing | Address | City/State/Zipcode | Phone Number | | Organization | | | | + + + + + | [facility] | [address] | [place] [address] | [phone] | + + + + + [place] [...] + + | Performing | Address | City/State/[facility] | Phone Number | | Organization | [...] Testing | 65 - 99 mg/dL | [facility] | | | POC | performed at [facility];[address] | | LABORATORY | | | | [address];[place] | | | | | | [address] | | | | + + + + + + + + | Specimen | + + | | + + + + + + + | Performing | Address | City/State/Zipcode | Phone Number | | Organization | | | | + + + + + | [facility] | [address] | [place] [address] | [phone] | + + + + + POC Glucose (08/03/2019 9:14 PDT) + + + + + + | Component | Value | Ref Range | Performed | Pathologist | | | | | At | Signature | + + + + + + | Glucose, | 80Comment: Testing | 65 - 99 mg/dL | [facility] | | | POC | performed at [facility];[address] | | LABORATORY | | | | [address];[place], [place] | | | | | | [address] | | | | + + + + + + + + | Specimen | + + | | + + + + + + + | Performing | Address | City/State/Zipcode | Phone Number | | Organization | | | | + + + + + | [facility] | [address] | [place] [address] | [phone] | + + + + + Type [...] + + + | BB BAND | [id number] | | [facility] | | | | | | LABORATORY | | + + + + + + | BB BAND | Testing performed at | | [facility] | | | | [facility] | LABORAT[address] | | | | [address];[place] [address] | | | | + + + + + + + + | Specimen | + + | Blood | + + + + + + + | Performing | Address | City/State/Zipcode | Phone Number | | Organization | | | | + + + + + | [facility] | [address] | [place] [address] | [phone] | + + + + + POC Glucose (08/03/2019 7:23 PDT) + + + + + + | Component | Value | Ref Range | Performed | Pathologist | | | | | At | Signature | + + + + + + | Glucose, | 77Comment: Testing | 65 - 99 mg/dL | [facility] | | | POC | performed at [facility];[address] | | LABORATORY | | | | [address];[place] | | | | | | [address] | | | | + + + + + + + + | Specimen | + + | | + + + + + + + | Performing | Address | City/State/Zipcode | Phone Number | | Organization | | | | + + + + + | [facility] | [address] | [place] [address] | [phone] | + + + + + documented [...]
--- OUTSIDE RECORDS SUMMARY | ~2019-08-09 | XMS | Encounter Summary ---
Demographics + + + | Address | [address] | | | [place] [address] | + + + | Home Phone [...] Team Providers + +------+ + | Care Waitress Name | Role | Phone | + [...] Management | | 2016 | | at [facility] [address] | [address] | (follow up BPs) | | | | [place] [place] Mailcode: | [address] [place], | | | | | [address] [facility] | [place] [address] | | | | | Health and Healing, | [phone] | | | | | Building | | | | | | Floor [place], [place] | | | | | | [address] | | | | | | [phone] | | | +--------+ + + + [...]
--- OUTSIDE RECORDS SUMMARY | ~2019-08-09 | XMS | Encounter Summary ---
Demographics + + + | Address | [address] | | | [place] [address] | + + + | Home Phone [...] Providers + +------+ + | Care Electric Deicer Assembler Name | Role | Phone | [...] | Pain | Diagnoses | Cr, | Wardrobe Specialist Chh1 | | | | Management | PPS (pelvic | MD Britta | [address] | | | | | pain | [address] | | | | | syndrome) | [facility] | Mailcode: | | | | | Procedures | Rd | [facility] | | | | | CONSULT TO | [facility] [place] | for Health | | | | | PAIN CENTER | [address] | and Healing, | | | | | | Phone: | Building | | | | | | [phone] | 1,[address]th Floor | | | | | | Fax: | [place], [place] | | | | | | [phone] | [address] | | | | | | | Phone: | | | | | | | [phone] | | | | | | | Fax: | | | | | | | [phone] | +--------+--------+ + + + + Reason [...] | | | | | symptom | [place] | [address] | | | | | associated | [place] | [address] | | | | | with female | Urology [address] | [facility] | | | | | genital | [address] | [address] | | | | | organs | [address] [place], | [place], [place] | | | | | Unspecified | [place] [address] | [address] | | | | | urinary | Phone: | Phone: | | | | | incontinence | [phone] | [phone] | | | | | | Fax: | Fax: | | | | | | [phone] | [phone] | +--------+--------+ + + + + Encounter Details +--------+---------+ + + + | Date | Type | Department | Care Team | Description | +--------+---------+ + + + | 11/29/ | Office | [facility] | Britta Hankins MD | PPS (pelvic pain | | 2014 | Visit | [facility] | [address] | syndrome) (Primary | | | | [address] | [address] [place], | Dx); Depression with | | | | [address] | [place] [address] | suicidal ideation; | | | | Aravind Hannon | [phone] | Recurrent UTI; | | | | [place], [place] | | Hypoestrogenism | | | | [address] | | | | | | [phone] | | | +--------+---------+ + + + [...] 4. Referral to pain service here at [facility] 5. Let me know if you would [...] (2 vag, 1 cs, she had to [facility] hospitalized after her second delivery for infection) seen at the request of Dr. Ck wan r pelvic pain and LUTs following pelvic reconstructive surgery. She is accompanied by her so sadiq Ball. He lives here in [place] so he is not fully aware of her recent health issues but h e did help in providing some of his mother's past history. 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 Long gold, she was hospitalized at [facility] in 2005 for a Vicodin overdose. At [...] speaker, a good grandmother". Her physicians in [place] and elsewhere will not pre scribe pain [...] until she was able to leave her [employer] house at age 20. Her aunt recently [...] estrogenization of the vulvova ginal tissues; negative SUPPLY CHAIN DEVELOPMENT MANAGER; no hypospadias of the urethra; + tenderness [...] F/U with Dr. Stover on return to [place]. I am Christine Monterroso functioning as a scribe for Dr. Britta Hankins. Christine Monterroso [facility] [address] [facility] [address] [facility] [place] [place] [address] I have reviewed, verified, and amended the [...] for afternoon appointments. Britta Hankins M.D., FACS Viscosity Worker [facility] documented in this [...]
--- OUTSIDE RECORDS SUMMARY | ~2019-08-09 | XMS | Encounter Summary ---
Demographics + + + | Address | [address] | | | [place] [address] | + + + | Home Phone [...] Providers + +------+ + | Care Manager Power Name | Role | Phone | + [...] as of this encounter Discharge Summaries Interface, Plumber In - 08/03/2006 2:03 AM PDT [id number]/ [id number] ROSANA Suarez [id number] Admission Date: 06/26/2006 Discharge Date: 06/30/2006 Staff [...] up with her primary care doctor in [place] to get lab followup within the next [...] psychiatrist, Dr. Pham; his phone number is [phone]. She is to make a followup appointment with him within the next week. The patient is also to follow up with Dr. Kel Young, he is located as well in [place], [place], and is associated with [facility]. She is to follow up with him for repeat electrolytes including potassium, magnesium, and phosphorus within the next several days. Monroe Disla M.D. Sherita Madrid M.D., M.P.H. / [id number] / [id number] / [phone] / [phone] cc: * Dr. Pham [facility], [place] FAX: [phone] Kel Young M.D. Electronically signed by Sherita Madrid 08-02-2006 11:01:13 AM documented i n this encounter Plan of Treatment Not on filedocumented as of this encounter Visit Diagnoses Not on filedocumented in this encounter"
--- OUTSIDE RECORDS SUMMARY | ~2019-08-09 | XMS | Clinical Summary ---
Demographics + + + | Address | [address] | | | [place] [address] | + + + | Home Phone [...] Providers + +------+ + | Care Resaw Machine Operator Name | Role | Phone | + +------+ + | Oxana Nye | PCP | Unavailable | + +------+ + Source Comments RADHA is fully live on both [facility] and [facility] In[facility] Allergies + + [...] | | | | | | | [address] | | + +--------+ +--------+ + +--------+ | [employer] | [employer]ARP | xxxxxxxxxx | 07/01/20 | [phone] | [address] | Indemn | | RETIRED PEOPLE | | | 12-Pre | 9 | [id number] | ity | | | | | sent | | [place] | | | | | | | | [address] | | + +--------+ +--------+ + +--------+ [...] jose | | | 8 (Home) | [address] | + +--------+ +--------+ + +
--- OUTSIDE RECORDS SUMMARY | ~2019-08-09 | XMS | Clinical Summary ---
Demographics + + + | Address | [address] | | | [place] [address] | + + + | Home Phone [...] Providers + +------+ + | Care Assistant Chief Train Dispatcher Name | Role | Phone | + +------+ + | Oxana Nye | PCP | Unavailable | + +------+ + Source Comments RADHA is fully live on both [facility] and [facility] In[facility] Allergies + + + + + + [...] | | | | | | | [address] | | + +--------+ +--------+ + +--------+ | [employer] | AARP | [phone] | 07/01/20 | [phone] | [address] | Indemn | | RETIRED PEOPLE | | | 12-Pre | 9 | [phone] | ity | | | | | sent | | [place] | | | | | | | | [address] | | + +--------+ +--------+ + +--------+ [...] [address] | | mandeep Captuo | al/Benji | | 1945 | [phone] | [address] [place] | | | jose | | | 8 (Home) | [address] | + +--------+ +--------+ + +
--- OUTSIDE RECORDS SUMMARY | ~2019-08-09 | XMS | Encounter Summary ---
Demographics + + + | Address | [address] | | | [place] [address] | + + + | Home Phone [...] Team Providers + +------+ + | Care Treatment Specialist Name | Role | Phone | [...] COURTNEY Andrews | | | | | [place], [place] | [place], [place] | | | | | [address] | [address] | | | | | [phone] | [phone] | | | | | | | [...] | + + + + + | [facility] | [address] | [place] [address] | | | PATHOLOGY | [address] | | | + + + + + | [facility] | [facility] | [place] [address] | | | PATHOLOGY | [address] [...] DEPARTMENT OF | [address] | [place] [address] | | | PATHOLOGY | [address] | | | + + + + + | [facility] DEPARTMENT OF | [address] | [place] [address] | | | PATHOLOGY | [address] [...] DEPARTMENT OF | [address] | [place] [address] | | | PATHOLOGY | [address] | | | + + + + + | [facility] DEPARTMENT OF | [address] | [place] [address] | | | PATHOLOGY | [address] | | | + + + + + CREATININE, URINE (06/30/2006 8:30 AM PDT) + +-------+ + + + | Component | Value | Ref Range | Performed | Pathologist | | | | | At | Signature | + +-------+ + + + | CREATININE | 92.9 | mg/dL | [facility] | | | CONC UR | [...] DEPARTMENT OF | [address] | [place] [address] | | | PATHOLOGY | [address] | | | + + + + + | [facility] DEPARTMENT OF | [address] | [place] [address] | | | PATHOLOGY | [address] [...] | [facility] DEPARTMENT OF | [address] | [place] [address] | | | PATHOLOGY | [address] | | | + + + + + | [facility] DEPARTMENT OF | [address] | [place] [address] | | | PATHOLOGY | [address] [...] | + + + + + | [facility] | [address] | [place] [address] | | | PATHOLOGY | [address] | | | + + + + + | [facility] | [address] | [place] [address] | | | PATHOLOGY | [address] [...] | [facility] DEPARTMENT OF | [address] | [place] [address] | | | PATHOLOGY | [address] | | | + + + + + | [facility] DEPARTMENT OF | [address] | [place] [address] | | | PATHOLOGY | [address] [...] + + | [facility] DEPARTMENT OF | [address] | [place] [address] | | | PATHOLOGY | [address] | | | + + + + + | [facility] DEPARTMENT OF | [address] | [place] [address] | | | PATHOLOGY | [address] | | | + + + + + CREATININE, URINE (06/30/2006 4:45 AM PDT) + +-------+ + + + | Component | Value | Ref Range | Performed | Pathologist | | | | | At | Signature | + +-------+ + + + | CREATININE | 40.1 | mg/dL | [facility] | | | CONC UR | | [...] DEPARTMENT OF | [address] | [place] [address] | | | PATHOLOGY | [address] | | | + + + + + | [facility] DEPARTMENT OF | [address] | [place] [address] | | | PATHOLOGY | [address] [...] DEPARTMENT OF | [address] | [place] [address] | | | PATHOLOGY | [address] | | | + + + + + | [facility] DEPARTMENT OF | [address] [address] | [place] [address] | | | PATHOLOGY | [address] [...] + | [facility] DEPARTMENT OF | [facility] | [place] [address] | | | PATHOLOGY | [address] | | | + + + + + | [facility] DEPARTMENT OF | [address] | [place] [address] | | | PATHOLOGY | [address] [...] | + + + + + | [facility] | [address] | [place] [address] | | | PATHOLOGY | [address] | | | + + + + + | [facility] DEPARTMENT OF | [address] | [place] [address] | | | PATHOLOGY | [address] [...] | + + + + + | [facility] | [address] | [place] [address] | | | PATHOLOGY | [address] | | | + + + + + | [facility] | [address] | [place] [address] | | | PATHOLOGY | [address] [...] DEPARTMENT OF | [address] | [place] [address] | | | PATHOLOGY | [address] | | | + + + + + | [facility] DEPARTMENT OF | [address] | [place] [address] | | | PATHOLOGY | [address] [...] DEPARTMENT OF | [address] | [place] [address] | | | PATHOLOGY | [address] | | | + + + + + | [facility] | [address] | [place] [address] | | | PATHOLOGY | [address] [...] | | | | | performed by [facility] | | | | | | [employer]. | | | | + + + + + + + + | Specimen | + + | | + + + + + + + | Performing | Address | City/State/Zipcode | Phone Number | | Organization | | | | + + + + + | [facility] | [address] | [place], [place] | | | [facility] | | [address] | | + + + + + [...] | + + + + + | [facility] | [address] | [place] [address] | | | PATHOLOGY | [address] | | | + + + + + | [facility] | [address] | [place] [address] | | | PATHOLOGY | [address] [...] DEPARTMENT OF | [address] | [place] [address] | | | PATHOLOGY | [address] | | | + + + + + | [facility] DEPARTMENT OF | [address] | [place] [address] | | | PATHOLOGY | [address] [...] [facility] | [address] | [place], [place] | | | [facility] | | [address] | | + + + + + [...] | | | | | performed at [facility] | | | | | | [facility] | | | | | | Laboratory. | | | | + + + + + + + + | Specimen | + + | | + + + + + + + | Performing | Address | City/State/Zipcode | Phone Number | | Organization | | | | + + + + + | [facility] | [address] | [place] [address] | | | LAB-MICRO | | | [...] DEPARTMENT OF | [address] | [place] [address] | | | PATHOLOGY | [address] | | | + + + + + | [facility] DEPARTMENT OF | [address] | [place] [address] | | | PATHOLOGY | [address] [...] [facility] DEPARTMENT OF | [address] | [place] [address] | | | PATHOLOGY | [address] | | | + + + + + | [facility] DEPARTMENT OF | [address] | [place] [address] | | | PATHOLOGY | [address] [...] DEPARTMENT OF | [address] | [place] [address] | | | PATHOLOGY | [address] | | | + + + + + | [facility] DEPARTMENT OF | [address] | [place] [address] | | | PATHOLOGY | [address] [...] + | [facility] DEPARTMENT OF | [address] | [place] [address] | | | PATHOLOGY | [address] | | | + + + + + | [facility] DEPARTMENT OF | [address] | [place] [address] | | | PATHOLOGY | [address] [...] | + + + + + | [facility] | [address] | [place] [address] | | | PATHOLOGY | [address] | | | + + + + + | [facility] | [address] | [place] [address] | | | PATHOLOGY | [address] [...] | [facility] DEPARTMENT OF | [address] | [place] [address] | | | PATHOLOGY | [address] | | | + + + + + | [facility] DEPARTMENT OF | [address] | [place] [address] | | | PATHOLOGY | [address] [...] + + | [facility] DEPARTMENT OF | [address] | [place] [address] | | | PATHOLOGY | [address] | | | + + + + + | [facility] DEPARTMENT OF | [address] | [place] [address] | | | PATHOLOGY | [address] [...] DEPARTMENT OF | [address] | [place] [address] | | | PATHOLOGY | [address] | | | + + + + + | [facility] DEPARTMENT OF | [address] | [place] [address] | | | PATHOLOGY | [address] [...] | [facility] DEPARTMENT OF | [address] | [place] [address] | | | PATHOLOGY | [address] | | | + + + + + | [facility] DEPARTMENT OF | [address] | [place] [address] | | | PATHOLOGY | [address] [...] DEPARTMENT OF | [address] | [place] [address] | | | PATHOLOGY | [address] | | | + + + + + | [facility] DEPARTMENT OF | [address] | [place] [address] | | | PATHOLOGY | [address] [...] + + + | [facility] | [address] | [place] [address] | | | PATHOLOGY | [address] | | | + + + + + | [facility] DEPARTMENT OF | [address] | [place] [address] | | | PATHOLOGY | [address] | | | + + + + + MAGNESIUM, PLASMA (06/28/2006 6:20 AM PDT) + +-------+ + + + | Component | Value | Ref Range | Performed | Pathologist | | | | | At | Signature | + +-------+ + + + | MAGNESIUM,P | 2.1 | 1.8 - 2.5 mg/dL | [facility] | | | LASMA | | | [...] + | [facility] DEPARTMENT OF | [address] | [place] [address] | | | PATHOLOGY | [address] | | | + + + + + | [facility] DEPARTMENT OF | [address] | [place] [address] | | | PATHOLOGY | [address] [...] | + + + + + | [facility] | [address] | [place] [address] | | | PATHOLOGY | [address] | | | + + + + + | [facility] | [address] | [place] [address] | | | PATHOLOGY | [address] [...] DEPARTMENT OF | [address] | [place] [address] | | | PATHOLOGY | [address] | | | + + + + + | [facility] DEPARTMENT OF | [address] | [place] [address] | | | PATHOLOGY | [address] [...] DEPARTMENT OF | [address] | [place] [address] | | | PATHOLOGY | [address] | | | + + + + + | [facility] DEPARTMENT OF | [address] | [place] [address] | | | PATHOLOGY | [address] | | | + + + + + PROTHROMBIN TIME (06/28/2006 6:20 AM PDT) + + + + + + | Component | Value | Ref Range | Performed | Pathologist | | | | | At | Signature | + + + + + + | INR | 1.10Comment: | 0.90 - 1.20 INR | [facility] | | | | PT INR | [...] | + + + + + | [facility] | [address] | [place] [address] | | | PATHOLOGY | [address] | | | + + + + + | [facility] | [facility] | [place] [address] | | | PATHOLOGY | [address] [...] | + + + + + | [facility] | [address] | [place] [address] | | | PATHOLOGY | [address] | | | + + + + + | [facility] | [address] | [place] [address] | | | PATHOLOGY | [address] | | | + + + + + MAGNESIUM, PLASMA (06/27/2006 5:40 PM PDT) + +-------+ + + + | Component | Value | Ref Range | Performed | Pathologist | | | | | At | Signature | + +-------+ + + + | MAGNESIUM,P | 1.8 | 1.8 - 2.5 mg/dL | [facility] | | | LASMA | | | [...] | [facility] DEPARTMENT OF | [address] | [place] [address] | | | PATHOLOGY | [address] | | | + + + + + | [facility] DEPARTMENT OF | [address] | [place] [address] | | | PATHOLOGY | [address] [...] | + + + + + | [facility] | [address] | [place] [address] | | | PATHOLOGY | [address] | | | + + + + + | [facility] | [address] | [place] [address] | | | PATHOLOGY | [address] [...] | + + + + + | [facility] | [address] | [place] [address] | | | PATHOLOGY | [address] | | | + + + + + | [facility] | [address] | [place] [address] | | | PATHOLOGY | [address] [...] + + + | [facility] | [address] | [place] [address] | | | LABORATORY | | | [...] | + + + + + | [facility] | [address] | [place] [address] | | | LABORATORY | | | [...] + | [facility] DEPARTMENT OF | [facility] | [place] [address] | | | PATHOLOGY | [address] | | | + + + + + | [facility] DEPARTMENT OF | [facility] | [place] [address] | | | PATHOLOGY | [address] [...] at | | | | | | [facility] | | | | | | [facility]. | | | | + + + + + + + + | Specimen | + + | | + + + + + + + | Performing | Address | City/State/Zipcode | Phone Number | | Organization | | | | + + + + + | [facility] | [address] | [place] [address] | | | LAB-MICRO | | | [...] + + + | [facility] | [address] | [place] [address] | | | LABORATORY | | | [...] | [facility] DEPARTMENT OF | [address] | [place] [address] | | | PATHOLOGY | [address] | | | + + + + + | [facility] DEPARTMENT OF | [address] | [place] [address] | | | PATHOLOGY | [address] [...] DEPARTMENT OF | [address] | [place] [address] | | | PATHOLOGY | [address] | | | + + + + + | [facility] DEPARTMENT OF | [address] | [place] [address] | | | PATHOLOGY | [address] [...] | + + + + + | [facility] | [address] | [place] [address] | | | PATHOLOGY | [address] | | | + + + + + | [facility] | [address] | [place] [address] | | | PATHOLOGY | [address] [...] DEPARTMENT OF | [address] | [place] [address] | | | PATHOLOGY | [address] | | | + + + + + | [facility] DEPARTMENT OF | [address] | [place] [address] | | | PATHOLOGY | [address] [...] DEPARTMENT OF | [address] | [place] [address] | | | PATHOLOGY | [address] | | | + + + + + | [facility] DEPARTMENT OF | [address] | [place] [address] | | | PATHOLOGY | [address] [...] | + + + + + | [facility] | [address] | [place] [address] | | | PATHOLOGY | [address] | | | + + + + + | [facility] | [address] | [place] [address] | | | PATHOLOGY | [address] [...] DEPARTMENT OF | [address] | [place] [address] | | | PATHOLOGY | [address] | | | + + + + + | [facility] DEPARTMENT OF | [address] | [place] [address] | | | PATHOLOGY | [address] [...] | | | | | performed at [facility] | | | | | | [facility] | | | | | | Laboratory. | | | | + + + + + + + + | Specimen | + + | | + + + + + + + | Performing | Address | City/State/Zipcode | Phone Number | | Organization | | | | + + + + + | [facility] | [address] | [place] [address] | | | LAB-MICRO | | | [...] at | | | | | | [facility] | | | | | | [facility]. | | | | + + + + + + + + | Specimen | + + | | + + + + + + + | Performing | Address | City/State/Zipcode | Phone Number | | Organization | | | | + + + + + | [facility] | [address] | [place] [address] | | | LAB-MICRO | | | [...] | + + + + + | [facility] | [address] | [place] [address] | | | PATHOLOGY | [address] | | | + + + + + | [facility] | [address] | [place] [address] | | | PATHOLOGY | [address] [...] | + + + + + | [facility] | [address] | [place] [address] | | | LABORATORY | | | [...] + + + | [facility] | [address] | [place] [address] | | | LABORATORY | | | [...] | | AB | Test performed by [facility] | | | | | | [facility] | | | | | | Laboratories. | | | | + + + + + + + + | Specimen | + + | | + + + + + + + | Performing | Address | City/State/Zipcode | Phone Number | | Organization | | | | + + + + + | [facility] | [address] | [place] [address] | | | LABORATORY | | | [...] | | | | | performed at [facility] | | | | | | [facility] | | | | | | Laboratory. | | | | + + + + + + + + | Specimen | + + | | + + + + + + + | Performing | Address | City/State/Zipcode | Phone Number | | Organization | | | | + + + + + | [facility] | [address] | [place] [address] | | | LAB-MICRO | | | [...] | [facility] DEPARTMENT OF | [address] | [place] [address] | | | PATHOLOGY | [address] | | | + + + + + | [facility] DEPARTMENT OF | [address] | [place] [address] | | | PATHOLOGY | [address] [...] | + + + + + | [facility] | [address] | [place] [address] | | | PATHOLOGY | [address] | | | + + + + + | [facility] | [address] | [place] [address] | | | PATHOLOGY | [address] [...] DEPARTMENT OF | [address] | [place] [address] | | | PATHOLOGY | [address] | | | + + + + + | [facility] DEPARTMENT OF | [address] | [place] [address] | | | PATHOLOGY | [address] [...] | + + + + + | [facility] | [address] | [place] [address] | | | PATHOLOGY | [address] | | | + + + + + | [facility] | [facility] | [place] [address] | | | PATHOLOGY | [address] [...] | [facility] DEPARTMENT OF | [address] | [place] [address] | | | PATHOLOGY | [address] | | | + + + + + | [facility] DEPARTMENT OF | [address] | [place] [address] | | | PATHOLOGY | [address] [...] [facility] DEPARTMENT OF | [address] | [place] [address] | | | PATHOLOGY | [address] | | | + + + + + | [facility] DEPARTMENT OF | [address] | [place] [address] | | | PATHOLOGY | [address] [...] DEPARTMENT OF | [address] | [place] [address] | | | PATHOLOGY | [address] | | | + + + + + | [facility] DEPARTMENT OF | [address] | [place] [address] | | | PATHOLOGY | [address] [...] DEPARTMENT OF | [address] | [place], [facility] | | | PATHOLOGY | [address] | | | + + + + + | [facility] | [address] | [place] [address] | | | PATHOLOGY | [address] [...] DEPARTMENT OF | [address] | [place] [address] | | | PATHOLOGY | [address] | | | + + + + + | [facility] DEPARTMENT OF | [address] | [place] [address] | | | PATHOLOGY | [address] [...] LabManual: | | | | | | [email or web address] | | | | | | [...] + | [facility] DEPARTMENT OF | [facility] | [place] [address] | | | PATHOLOGY | [address] | | | + + + + + | [facility] DEPARTMENT OF | [facility] | [place] [address] | | | PATHOLOGY | [address] [...] DEPARTMENT OF | [address] | [place] [address] | | | PATHOLOGY | [address] | | | + + + + + | [facility] DEPARTMENT OF | [address] | [place] [address] | | | PATHOLOGY | [address] [...] DEPARTMENT OF | [address] | [place] [address] | | | PATHOLOGY | [address] | | | + + + + + | [facility] DEPARTMENT | [address] | [place] [address] | | | PATHOLOGY | [address] [...] + | [facility] DEPARTMENT | [address] | [place] [address] | | | PATHOLOGY | [address] | | | + + + + + | [facility] | [address] | [place] [address] | | | PATHOLOGY | [address] [...] | + + + + + | [facility] | [address] | [place] [address] | | | PATHOLOGY | [address] | | | + + + + + | [facility] | [address] | [place] [address] | | | PATHOLOGY | [address] [...] HOSPITAL DEPARTMENT | [address] | [place] [address] | | | PATHOLOGY | [address] | | | + + + + + | [facility] DEPARTMENT OF | [address] | [place] [address] | | | PATHOLOGY | [address] | | | + + + + + ALCOHOL SCRN, SERUM (06/26/2006 4:15 PM PDT) + + + + + + | Component | Value | Ref Range | Performed | Pathologist | | | | | At | Signature | + + + + + + | ETHANOL | Negative | mg/dL | [facility] | | | (ALCOHOL) | | | [...] + | [facility] DEPARTMENT OF | [address] | [place] [address] | | | PATHOLOGY | [address] | | | + + + + + | [facility] DEPARTMENT OF | [address] [place] [address] [address] | [place] [address] | | | PATHOLOGY | [address] [...] | + + + + + | [facility] DEPARTMENT OF | [address] | [place] [address] | | | PATHOLOGY | [address] | | | + + + + + | [facility] DEPARTMENT OF | [address] | [place] [address] | | | PATHOLOGY | [address] | | | + + + + + MAGNESIUM, PLASMA (06/26/2006 4:15 PM PDT) + +-------+ + + + | Component | Value | Ref Range | Performed | Pathologist | | | | | At | Signature | + +-------+ + + + | MAGNESIUM,P | 2.3 | 1.8 - 2.5 mg/dL | [facility] | | | SAIL[facility] | | [...] DEPARTMENT OF | [address] | [place] [address] | | | PATHOLOGY | [address] | | | + + + + + | [facility] DEPARTMENT OF | [address] | [place] [address] | | | PATHOLOGY | [address] [...] | + + + + + | [facility] | [address] | [place] [address] | | | PATHOLOGY | [address] | | | + + + + + | [facility] | [address] | [place] [address] | | | PATHOLOGY | [address] [...] | [facility] DEPARTMENT OF | [address] | [place] [address] | | | PATHOLOGY | [address] | | | + + + + + | [facility] DEPARTMENT OF | [address] | [place] [address] | | | PATHOLOGY | [address] [...] + + | [facility] DEPARTMENT OF | [address] | [place] [address] | | | PATHOLOGY | [address] | | | + + + + + | [facility] DEPARTMENT OF | [address] | [place] [address] | | | PATHOLOGY | [address] [...] DEPARTMENT OF | [address] | [place] [address] | | | PATHOLOGY | [address] | | | + + + + + | [facility] DEPARTMENT OF | [address] | [place] [address] | | | PATHOLOGY | [address] | | | + + + + + documented in this encounter Visit Diagnoses Not on filedocumented in this encounter"
--- OUTSIDE RECORDS SUMMARY | ~2019-08-09 | XMS | Encounter Summary ---
Demographics + + + | Address | [address] | | | [place] [address] | + + + | Home Phone [...] + +------+ + | Care Retail Sales Clerk Name | Role | Phone | + +------+ + | Miquel Calhoun MD | PCP | | + +------+ + Encounter Details +--------+ + + + + | Date | Type | Department | Care Team | Description | +--------+ + + + + | 11/29/ | Documentati | [facility] | Khushbu Cortez, | | | 2013 | on | [facility] | TEMPERATURE REGULATOR [place], [place] | | | | | [address] | [address] | | | | | [address] | | | | | | [facility] | | | | | | [facility] [place] | | | | | | [address] | | | | | | [phone] | | | +--------+ + + + [...]
--- OUTSIDE RECORDS SUMMARY | ~2019-08-09 | XMS | Encounter Summary ---
Demographics + + + | Address | [address] | | | [place] [address] | + + + | Home Phone [...] Team Providers + +------+ + | Care Collision Mechanic Name | Role | Phone | [...] 2012 | | [facility] | [address] | (Dr. Holbrook) | | | | [facility] [address] | [address] | | | | | [address] | [place], [place] | | | | | [facility] | [address] | | | | | [place], [place] | [phone] | | | | | [address] | | | | | | [phone] | | | +--------+ + + + [...]
--- OUTSIDE RECORDS SUMMARY | ~2019-08-09 | XMS | Encounter Summary ---
Demographics + + + | Address | [address] | | | [place] [address] | + + + | Home Phone [...] Team Providers + +------+ + | Care Procurement Representative Name | Role | Phone | + +------+ + PCP | Unavailable | + +------+ + Encounter Details +--------+ + + + + | Date | Type | Department | Care Team | Description | +--------+ + + + + | 06/26/ | Respiratory | | Other, Faculty | | | 2006 | Therapy | | [phone] | | +--------+ + + + + [...] [facility] | [address] | [place], [place] | | | DIAGNOSTICS - | [place] | [address] | | | PULMONARY FUNCTION | | | | + + + + + documented in this encounter Visit Diagnoses Not on filedocumented in this encounter"
--- OUTSIDE RECORDS SUMMARY | ~2019-08-09 | XMS | Encounter Summary ---
Demographics + + + | Address | [address] | | | [place] [address] | + + + | Home Phone [...] + + | Author | [facility] (Historical as of | | | 06-16-19) | + + + | Organization | [facility] (Historical as of | | | [...] + +------+ + | Care It Consulting Manager Name | Role | Phone | + +------+ + | Romy De La Paz MD | PCP | | + +------+ + Encounter Details +--------+---------+ + + + | Date | Type | Department | Care Team | Description | +--------+---------+ + + + | 08/03/ | Surgery | [facility] | Maykel Hutchins MD | [facility] | | 2019 | | [facility] | [address] | STIMULATOR - | | | | Operating Room [address] | [place] [address] | THORACIC LAMINECTOMY | | | | [address] | [phone] | | | | | [place] [address] | | | | | | [phone] | | | +--------+---------+ + + + [...] [address] | | | | | | [place] [address] | | | | | | [phone] | | | | | | | | +--------+---------+ + + + as of this encounter Visit Diagnoses Not on filein this encounter Admitting Diagnoses + + | Diagnosis | + + | M96.1 M54.16 M54.17 | + +"
--- OUTSIDE RECORDS SUMMARY | ~2019-08-09 | XMS | Encounter Summary ---
Demographics + + + | Address | [address] | | | [place] [address] | + + + | Home Phone [...] Providers + +------+ + | Care Inspector Floor Sub Assembly Name | Role | Phone | + [...] | | 2016 | Encounter | at [facility] [address] | [address] | | | | | [place] Mailcode: | [address] [place], | | | | | [address] | [place] [address] | | | | | [facility], | [phone] | | | | | | | | | | | Floor [place], [place] | | | | | | [address] | | | | | | [phone] | | | +--------+ + + + [...]
--- OUTSIDE RECORDS SUMMARY | ~2019-08-09 | XMS | Encounter Summary ---
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
--- OUTSIDE RECORDS SUMMARY | ~2019-08-09 | XMS | Encounter Summary ---
Demographics + + + | Address | [address] | | | [place] [address] | + + + | Home Phone [...] Team Providers + +------+ + | Care Interactive Digital Media Specialist Name | Role | Phone | + +------+ + | Oxana Nye | PCP | Unavailable | + +------+ + Encounter Details +--------+------+ + + + | Date | Type | Department | Care Team | Description | +--------+------+ + + + | 03/09/ | Lab | Laboratory at [facility] | | Chest pain, | | 2016 | | [address] | | unspecified type | | | | [place], [place] | | | | | | [address] | | | | | | [phone] | | | +--------+------+ + + + [...] | + + + + + | [facility] | [id number] | [place], [place] | | | | [place] | [address] | | + + + + + documented in this encounter Visit Diagnoses + + | Diagnosis | + + | Chest pain, unspecified type | + + documented in this encounter"
--- OUTSIDE RECORDS SUMMARY | 2019-08-09 11:08 | XMS ---
PreManage Notification: RONALD FLORIAN Security Washing Tub Operator Events No recent Security Events currently on file CRITERIA MET - Group Notification - [facility] - Has Care Guidelines - PDMP - [facility] - 2 Visits in 30 Days CARE PROVIDERS EVELIO AIKEN Physician 05/23/2018-Current PHONE: Unknown Shlomo De La Paz Internal Medicine: Pulmonary Disease 02/06/2019-Current PHONE: Unknown Yoon Aiken [facility] Current PHONE: [phone] Alan Cesar MD PHONE: Unknown Mateus has no Care Guidelines for this patient. Care History Medical/Surgical 08/08/2019 [facility] - PATIENT HAS AN APT WITH PCP DR DE LA PAZ ON 08/13/19. 02/06/2019 [facility] - Patient is currently established with [facility]. If patient is seen in the ED during business hours. Please contact CHWs at [facility]. Care Recommendation: This patient has had 5 or more Emergency Department visits in the last 12 months.\T\nbsp; Patient requires education on the scope and purpose of the ED as an acute care provider not a Primary Care Provider and should not be utilized for chronic conditions.\T\nbsp; These are guidelines and the provider should exercise clinical judgment when providing care. 06/28/2018 [facility] HISTORY:\T\nbsp; DM/ COPD, RESTLESS LEGS/ DEPRESSION/ TARDIVE DYSKINESIA/ CHRONIC PAIN/ MULTIPLE OVERDOSE ATTEMPTS/ SCOLIOSIS/ DEGEN DISC DISEASE/ BONE SPUR E.D. VISIT COUNT (12 MO.) 1 Nicole H. 5 [facility]. TOTAL 6 NOTE: Visits indicate total known visits. ED/UCC VISIT TRACKING (12 MO.) 08/09/2019 11:06 [facility] [place] TYPE: Emergency COMPLAINT: - POST OP PROBLEM 08/07/2019 22:09 [facility] [place] TYPE: Emergency [...] biological substances status - Fasciculation - Other intermediate card tender (current) 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 - Type 2 diabetes mellitus without complications - Bipolar disorder, unspecified - penitentiary (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 of opiate analgesic - Major depressive disorder, single episode, unspecified 02/05/2019 05:23 [facility] [place] TYPE: Emergency COMPLAINT: - ABD PAIN DIAGNOSES: - Allergy status to other drugs, medicaments and biological substances status - Bipolar disorder, unspecified - Chronic obstructive pulmonary disease, unspecified - Type 2 diabetes mellitus without complications - Dysuria - Other intermediate card tender (current) 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 - Urinary tract infection, site not specified 10/14/2018 12:13 [facility] [place] TYPE: Emergency COMPLAINT: - FALL/RIB PAIN DIAGNOSES: - Chronic obstructive pulmonary disease, unspecified - Type 2 diabetes mellitus without complications - Striking against or struck by other objects, initial encounter - Other chronic pain - Bipolar disorder, unspecified - Other intermediate card tender (current) 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 - Contusion of left front wall of thorax, initial encounter - Allergy status to other drugs, medicaments and biological substances status - Low back pain INPATIENT VISIT TRACKING (12 MO.) No inpatient visits to display in this time frame [email or web address]
== END 2019-08-09 15:05 | disposition home or self-care (01) ==
LOC: ED 11:05
DX: G89.18 Other acute postprocedural pain (principal); G89.29 Other chronic pain; M54.5 Low back pain; E11.9 Type 2 diabetes mellitus without complications; J44.9 Chronic obstructive pulmonary disease, unspecified; F32.9 Major depressive disorder, single episode, unspecified; Z88.8 Allergy status to other drugs, medicaments and biological substances; Z79.52 Long term (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 of systemic steroids; Z79.899 Other long term (current) 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; Z79.891 Long term (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 of opiate analgesic
CPT/HCPCS: 99283

== ENCOUNTER 2019-09-24 15:42 | Emergency (ER) | payer MEDICARE, OTHER ==
[~2019-09-24] VITALS: Ht 154.9 cm; Wt 50.3 kg
--- OUTSIDE RECORDS SUMMARY | ~2019-09-24 | XMS | Encounter Summary ---
Demographics + + + | Address | [address] | | | [place] [address] | + + + | Home Phone | | + + + | Preferred Language | Unknown | + + + | Marital Status | | + + + | Jain Affiliation | 1013 | + + + | Race | Unknown | + + + | Ethnic Group | Unknown | + + + Author + + + | Author | [facility] | | | and [place] | + + + | Organization | [facility] | | | and [place] | + + + | Address | Unknown | + + + | Phone | Unavailable | + + + Support + + +---------+ + | Name | Relationship | Address | Phone | + + +---------+ + | Giuseppe Menchaca | ECON | Unknown | | + + +---------+ + | Nathalia Js | ECON | Unknown | | + + +---------+ + Care Team Providers + +------+ + | Care Electrocardiogram Technician Name | Role | Phone | + +------+ + | Wendi Aiken | PCP | | + +------+ + Reason for Visit + + + | Reason | Comments | + + + | Suicidal | | + + + Encounter Details +--------+ + + + + | Date | Type | Department | Care Team | Description | +--------+ + + + + | 06/23/ | Emergency | [facility] | Suicide ideation | | 2018 - | | [facility] | [address] | (Primary Dx); | | | | CENTER [address] | [facility] | [place] | | 06/25/ | | [place], [place] | [employer] [id number] | personality disorder | | 2018 | | [address] | [phone] | | | | | [phone] | | | | | | | [place], | | | | | | [address] | | | | | | [place] [address] | | | | | | [phone] | | | | | | | | +--------+ + + + + Social History + [...] + +---------+ + | Alcohol Use | Drinks/Week | oz/Week | Comments | + + +---------+ + | Yes | | | OCCASIONAL | + + +---------+ + + + + | Sex Assigned at | Date Recorded | | | | + + + | Not on file | | + + + + + + + | Job Start Date | Occupation | Industry | + + + + | Not on file | Not on file | Not on file | + + + + + + + + | Travel History | Travel Start | Travel End | + + + + + + | No recent travel history available. | + + documented as of this encounter Last Filed Vital Signs + + + + + | Vital Sign | Reading | Time Taken | Comments | + + + + + | Blood Pressure | 110/66 | 06/25/2018 6:51 AM | | | | | PDT | | + + + + + | Pulse | 80 | 06/25/2018 1:11 PM | | | | | PDT | | + + + + + | Temperature | 36.7 C (98.1 F) | 06/25/2018 6:51 AM | | | | | PDT | | + + + + + | Respiratory Rate | 18 | 06/25/2018 1:11 PM | | | | | PDT | | + + + + + | Oxygen Saturation | 98% | 06/25/2018 1:11 PM | | | | | PDT | | + + + + + | Inhaled Oxygen | - | - | | | Concentration | | | | + + + + + | Weight | 54.4 kg (120 lb) | 06/23/2018 7:53 PM | | | | | PDT | | + + + + + | Height | 154.9 cm (5' 1") | 06/23/2018 7:53 PM | | | | | PDT | | + + + + + | Body Mass Index | 22.67 | 06/23/2018 7:53 PM | | | | | PDT | | + + + + + documented in this encounter Medications at Time of Discharge + + + +---------+--------+ + | Medication | Sig | Dispensed | Refills | Start | End Date | | | | | | Date | | + + + +---------+--------+ + | clonazePAM | Take 1-2 mg by mouth | | 0 | | | | (KLONOPIN) 1 mg | nightly as needed | | | | | | tablet | for Anxiety. | | | | | + + + +---------+--------+ + | levothyroxine | Take 100 mcg by | | 0 | | | | (SYNTHROID) 100 mcg | mouth every morning | | | | | | tablet | (before breakfast). | | | | | + + + +---------+--------+ + | Loratadine 10 MG | Take 10 mg by mouth | | 0 | | | | CAPS | Daily as needed. | | | | | + + + +---------+--------+ + | rOPINIRole | Take 4 mg by mouth 4 | | 0 | | | | (REQUIP) 4 mg tablet | times daily. | | | | | + + + +---------+--------+ + | fentaNYL | Place 1 patch onto | | 0 | | | | (DURAGESIC) 25 | the skin every 72 | | | | 9 | | mcg/hr | hours. | | | | | + + + +---------+--------+ + | | Take 1 tablet by | | 0 | | | | HYDROcodone-acetamin | mouth 4 times daily. | | | | 9 | | ophen (NORCO) 10-325 | | | | | | | mg per tablet | | | | | | + + + +---------+--------+ + | ibuprofen | Take 600 mg by mouth | | 0 | | | | (ADVIL,MOTRIN) 600 | every 6 hours as | | | | 9 | | MG tablet | needed for Pain. | | | | | + + + +---------+--------+ + documented as of this encounter Progress Hannah Magaña PharmD - 06/24/2018 10:06 AM PDTMedication History Completed Medication history was completed using: -medication list faxed from [facility] and [facility] both in [place] Major discrepancies noted: Did not speak with patient, just verified medications with most recently fill lists from her pharmacies. Removed Ranitidine and Myrbetriq from med list as these have not been filled in the last 3 months. Please see [facility] med list for updated medication list. Electronically Signed by: Hannah Ron PharmD 06/24/2018 10:06 documented in th is encounter Plan of Treatment +--------+---------+ + + + | Date | Type | Specialty | Care Team | Description | +--------+---------+ + + + | 10/15/ | Office | Pain Medicine | Denys Sibley, | | | 2018 | Visit | | DO Siri [facility] | | | | | | [place] | | | | | | [phone] | | | | | | | | +--------+---------+ + + + + +------+--------+ + + | Name | Type | Priori | Associated Diagnoses | Date/Time | | | | ty | | | + +------+--------+ + + | ED INFORMATION | SYLVIE | Routin | | 06/23/2018 7:52 PM | | EXCHANGE | | e | | PDT | + +------+--------+ + + documented as of this encounter Procedures + +--------+ + + + | Procedure Name | Priori | Date/Time | Associated Diagnosis | Comments | | | ty | | | | + +--------+ + + + | POC GLUCOSE | Routin | 06/24/2018 | | Results for this | | | e | 7:25 AM | | procedure are in the | | | | PDT | | results section. | + +--------+ + + + | CBC WITH | STAT | 06/23/2018 | | Results for this | | DIFFERENTIAL | | 9:30 PM | | procedure are in the | | | | PDT | | results section. | + +--------+ + + + | TSH | STAT | 06/23/2018 | | Results for this | | | | 9:30 PM | | procedure are in the | | | | PDT | | results section. | + +--------+ + + + | ALCOHOL | STAT | 06/23/2018 | | Results for this | | | | 9:30 PM | | procedure are in the | | | | PDT | | results section. | + +--------+ + + + | ACETAMINOPHEN LEVEL | STAT | 06/23/2018 | | Results for this | | | | 9:30 PM | | procedure are in the | | | | PDT | | results section. | + +--------+ + + + | SALICYLATE LEVEL | STAT | 06/23/2018 | | Results for this | | | | 9:30 PM | | procedure are in the | | | | PDT | | results section. | + +--------+ + + + | COMPREHENSIVE | STAT | 06/23/2018 | | Results for this | | METABOLIC PANEL | | 9:30 PM | | procedure are in the | | | | PDT | | results section. | + +--------+ + + + | URINALYSIS WITH | STAT | 06/23/2018 | | Results for this | | MICROSCOPIC WITH | | 8:40 PM | | procedure are in the | | CULTURE IF INDICATED | | PDT | | results section. | + +--------+ + + + | DRUGS OF ABUSE, | STAT | 06/23/2018 | | Results for this | | SCREEN, URINE | | 8:40 PM | | procedure are in the | | | | PDT | | results section. | + +--------+ + + + | ED INFORMATION | Routin | 06/23/2018 | | | | EXCHANGE | e | 7:52 PM | | | | | | PDT | | | + +--------+ + + + +---+--------+ | | | | | Proced | | | ure | | | Note - | | | Doug, | | | Lab In | | | | | | Hlseve | | | n - | | | | | | 2017 | | | 7:53 | | | PM PDT | | | | | | Format | | | ting | | | of | | | this | | | note | | | might | | | be | | | differ | | | ent | | | from | | | the | | | origin | | | al.DOUG | | | E?NOTI | | | FICATI | | | ON?08/ | | | 24/201 | | | 8 | | | 19:50? | | | DOHERT | | | Y-FAWT | | | HROP, | | | KORI | | | | | | L?MRN: | | | | | | [id number] | | | [id number] | | | ecurit | | | y | | | Events | | | No | | | recent | | | | | | Securi | | | ty | | | Events | | | | | | curren | | | tly on | | | | | | fileED | | | Care | | | Guidel | | | inesTh | | | ere | | | are | | | curren | | | tly no | | | ED | | | Care | | | Guidel | | | elder | | | in | | | SYLVIE | | | for | | | this | | | patien | | | t. | | | Please | | | check | | | your | | | facili | | | ty's | | | medica | | | l | | | record | | | s | | | system | | | .Crite | | | mariama | | | met | | | PDMP | | | 2 | | | Facili | | | ties | | | In 90 | | | Days | | | 5 | | | Visits | | | In | | | 365 | | | DaysCa | | | re | | | Provid | | | ersPro | | | vider | | | PRC | | | Type | | | Phone | | | Fax | | | Servic | | | e | | | Dates | | | AIKEN, | | | | | | WENDI, | | | PA-C | | | Physic | | | brad | | | Assist | | | ant | | | [phone]) | | | 215-15 | | | 64 | | | ([phone]) | | | 215-15 | | | 67 Dain | | | 24, | | | 2018 - | | | | | | Curren | | | t | | | Yoon | | | Aiken, | | | PA | | | Primar | | | y Care | | | ([phone]) | | | | | | 215-15 | | | 64 | | | Curren | | | t | | | Cesar, | | | | | | Bradle | | | y | | | Michael | | | MD | | | Treatm | | | ent | | | Curren | | | t | | | Care | | | Histor | | | yMedic | | | al/Silver | | | [email or web address] | | | /25/18 | | | 12:00 | | | AM | | | [facility] [place] [facility] | | | al | | | [facility] is | | | | | | workin | | | g with | | | | | | patien | | | t and | | | attend | | | ing | | | all | | | [facility] | | | ys | | | apts | | | with | | | patien | | | t. | | | [facility] is | | | | | | attend | | | ing | | | PCP | | | apts | | | with | | | patien | | | t.Care | | | | | | Recomm | | | endati | | | on:Thi | | | s | | | patien | | | t has | | | had 5 | | | or | | | more | | | Emerge | | | ncy | | | Depart | | | ment | | | visits | | | in | | | the | | | last | | | 12 | | | months | | | .? | | | Patien | | | t | | | requir | | | es | | | educat | | | ion on | | | the | | | scope | | | and | | | purpos | | | e of | | | the ED | | | as an | | | acute | | | care | | | provid | | | er not | | | a | | | Primar | | | y Care | | | | | | Provid | | | er and | | | | | | should | | | not | | | be | | | utiliz | | | ed for | | | | | | chroni | | | c | | | condit | | | ions.? | | | If | | | patien | | | t | | | return | | | s to | | | ED | | | please | | | | | | contac | | | t | | | Commun | | | ity | | | Health | | | | | | Worker | | | , | | | Virginie | | | at | | | [phone] | | | .These | | | are | | | guidel | | | elder | | | and | | | the | | | provid | | | er | | | should | | | | | | exerci | | | se | | | clinic | | | al | | | judgme | | | nt | | | when | | | provid | | | ing | | | care.R | | | ecent | | | Emerge | | | ncy | | | Depart | | | ment | | | Visit | | | [facility] | | | yAdmit | | | Date | | | Facili | | | ty | | | City | | | State | | | Type | | | Major | | | Type | | | Diagno | | | ses or | | | Chief | | | | | | Compla | | | int | | | Aug | | | 24, | | | 2018 | | | [facility] | | | [place] [facility] [place] | [place] | | | Emerge | | | ncy | | | Emerge | | | ncy | | | | | | Mental | | | Eval | | | Aug | | | 16, | | | 2018 | | | [facility] [place] | | [facility] | | | [place] | | | [place] | | | Emerge | | | ncy | | | Emerge | | | ncy | | | Type | | | 2 | | | diabet | | | es | | | mellit | | | us | | | withou | | | t | | | compli | | | cation | | | s | | | Other | | | specif | | | ied | | | postpr | | | ocedur | | | al | | | states | | | | | | Long | | | term | | | (curre | | | nt) | | | use of | | | | | | aspiri | | | n | | | Low | | | back | | | pain | | | | | | Unspec | | | ified | | | fall, | | | initia | | | l | | | encoun | | | ter | | | Other | | | long | | | term | | | (curre | | | nt) | | | drug | | | therap | | | y Aug | | | 5, | | | 2018 | | | [facility] [place] | | [facility] | | | [place] | [place] | | | Emerge | | | ncy | | | Emerge | | | ncy | | | Long | | | term | | | (curre | | | nt) | | | use of | | | | | | aspiri | | | n | | | Allerg | | | y | | | status | | | to | | | other | | | drugs, | | | | | | medica | | | ments | | | and | | | biolog | | | ical | | | substa | | | nces | | | status | | | | | | Other | | | long | | | term | | | (curre | | | nt) | | | drug | | | therap | | | y | | | Other | | | chroni | | | c pain | | | | | | Type 2 | | | | | | diabet | | | es | | | mellit | | | us | | | withou | | | t | | | compli | | | cation | | | s | | | Suicid | | | al | | | ideati | | | ons | | | | | | Cervic | | | algia | | | Low | | | back | | | pain | | | May | | | 26, | | | 2018 | | | [facility] [place] | [facility] | | | [place] | | [place] | | | Emerge | | | ncy | | | Emerge | | | ncy | | | | | | Chroni | | | c | | | obstru | | | ctive | | | pulmon | | | lonnie | | | diseas | | | e, | | | unspec | | | ified | | | | | | Allerg | | | y | | | status | | | to | | | other | | | drugs, | | | | | | medica | | | ments | | | and | | | biolog | | | ical | | | substa | | | nces | | | status | | | | | | Low | | | back | | | pain | | | | | | Strain | | | of | | | muscle | | | , | | | fascia | | | and | | | tendon | | | of | | | lower | | | back, | | | initia | | | l | | | encoun | | | ter | | | Other | | | long | | | term | | | (curre | | | nt) | | | drug | | | therap | | | y | | | Long | | | term | | | (curre | | | nt) | | | use of | | | | | | aspiri | | | n | | | Type 2 | | | | | | diabet | | | es | | | mellit | | | us | | | withou | | | t | | | compli | | | cation | | | s | | | Other | | | and | | | unspec | | | ified | | | overex | | | ertion | | | or | | | strenu | | | ous | | | moveme | | | nts or | | | | | | postur | | | es, | | | initia | | | l | | | encoun | | | ter | | | Apr | | | 27, | | | 2018 | | | [facility] [place] [facility] | | | [place] | | [place] | | | Emerge | | | ncy | | | Emerge | | | ncy | | | Chief | | | Compla | | | int: | | | STROKE | | | Apr | | | 18, | | | 2018 | | | [facility] [place] | | [facility] | | | [place] 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 [place] | [facility] | | | [place] | | [place] | | | Emerge | | | ncy | | | Emerge | | | ncy | | | | | | Allerg | | | y | | | status | | | to | | | other | | | drugs, | | | | | | medica | | | ments | | | and | | | biolog | | | ical | | | substa | | | nces | | | status | | | | | | Poison | | | ing by | | | | | | antipa | | | rkinso | | | nism | | | drugs | | | and | | | other | | | centra | | | l | | | muscle | | | -tone | | | depres | | | sants, | | | | | | intent | | | ional | | | self-h | | | arm, | | | initia | | | l | | | encoun | | | ter | | | Type | | | 2 | | | diabet | | | es | | | mellit | | | us | | | withou | | | t | | | compli | | | cation | | | s | | | Encoun | | | ter | | | for | | | other | | | genera | | | l | | | examin | | | ation | | | | | | Restle | | | ss | | | legs | | | syndro | | | me | | | Other | | | long | | | term | | | (curre | | | nt) | | | drug | | | therap | | | y | | | Long | | | term | | | (curre | | | nt) | | | use of | | | | | | non-st | | | eroida | | | l | | | anti-i | | | nflamm | | | atorie | | | s | | | (NSAID | | | ) | | | Recent | | | | | | Inpati | | | ent | | | Visit | | | [facility] | | | yNo | | | record | | | ed | | | inpati | | | ent | | | visits | | | . E.D. | | | Visit | | | Count | | | (12 | | | mo.)Fa | | | cility | | | | | | Visits | | | | | | [facility] | | al [facility] | | [facility] [place] [facility] | [facility] | | | al 9 | | | Total | | | 10 | | | Note: | | | Visits | | | | | | indica | | | te | | | total | | | known | | | visits | | | . | | | PDMP | | | Report | | | Rx | | | Detail | | | s (6 | | | Mo.)Fi | | | ll | | | Date | | | Drug | | | Descri | | | ption | | | Qty. | | | Prescr | | | iber | | | CS MED | | | | | | 2018-0 | | | 8-20 | | | CLONAZ | | | EPAM 1 | | | MG | | | TABLET | | | 60 | | | PELON | | | GIAN | | | , MD 4 | | | 0 | | | 2018-0 | | | 8-15 | | | HYDROC | | | ODONE- | | | ACETAM | | | IN | | | 5-325 | | | MG 30 | | | REFUGIO | | | MOTAGH | | | I, DO | | | 2 15 | | | 2018-0 | | | 8-03 | | | FENTAN | | | YL 25 | | | MCG/HR | | | PATCH | | | 10 | | | WILLIAM | | | L | | | SOLIMAN | | | ON, MD | | | 2 60 | | | 2018-0 | | | 7-21 | | | CLONAZ | | | EPAM 1 | | | MG | | | TABLET | | | 60 | | | PELON | | | GIAN | | | , MD 4 | | | 0 | | | 2018-0 | | | 7-18 | | | HYDROC | | | ODONE- | | | ACETAM | | | IN | | | 10-325 | | | MG 60 | | | WENDI | | | AIKEN | | | 2 20 | | | 2018-0 | | | 7-13 | | | HYDROC | | | ODONE- | | | ACETAM | | | IN | | | 5-325 | | | MG 10 | | | WENDI | | | AIKEN | | | 2 10 | | | 2018-0 | | | 7-05 | | | FENTAN | | | YL 25 | | | MCG/HR | | | PATCH | | | 10 | | | WENDI | | | AIKEN | | | 2 60 | | | 2018-0 | | | 6-19 | | | HYDROC | | | ODONE- | | | ACETAM | | | IN | | | 10-325 | | | MG 40 | | | WENDI | | | AIKEN | | | 2 40 | | | 2018-0 | | | 6-19 | | | CLONAZ | | | EPAM 1 | | | MG | | | TABLET | | | 60 | | | PELON | | | GIAN | | | , MD 4 | | | 0 | | | 2018-0 | | | 6-11 | | | FENTAN | | | YL 12 | | | MCG/HR | | | PATCH | | | 10 | | | WENDI | | | AIKEN | | | 2 28.8 | | | | | | 2018-0 | | | 6-11 | | | NARCAN | | | 4 MG | | | NASAL | | | SPRAY | | | 2 | | | THRIFT | | | Y | | | PAYLES | | | S INC. | | | INC. | | | 0 | | | 2018-0 | | | 6-09 | | | HYDROC | | | ODONE- | | | ACETAM | | | IN | | | 10-325 | | | MG 40 | | | WENDI | | | AIKEN | | | 2 40 | | | 2018-0 | | | 6-05 | | | HYDROC | | | ODONE- | | | ACETAM | | | IN | | | 10-325 | | | MG 20 | | | WENDI | | | AIKEN | | | 2 40 | | | 2018-0 | | | 5-30 | | | HYDROC | | | ODONE- | | | ACETAM | | | IN | | | 10-325 | | | MG 21 | | | WENDI | | | AIKEN | | | 2 30 | | | 2018-0 | | | 5-26 | | | HYDROC | | | ODONE- | | | ACETAM | | | IN | | | 5-325 | | | MG 10 | | | MICHAE | | | L | | | [facility] | | | , MD 2 | | | 25 | | | 2018-0 | | | 5-22 | | | CLONAZ | | | EPAM 1 | | | MG | | | TABLET | | | 60 | | | PELON | | | GIAN | | | , MD 4 | | | 0 | | | 2018-0 | | | 4-25 | | | CLONAZ | | | EPAM 1 | | | MG | | | TABLET | | | 60 | | | PELON | | | GIAN | | | , MD 4 | | | 0 | | | 2018-0 | | | 4-11 | | | TEMAZE | | | RACHAEL 15 | | | MG | | | CAPSUL | | | E 30 | | | WILLIAM | | | L | | | TAINA | | | 4 0 | | | 2018-0 | | | 3-25 | | | CLONAZ | | | EPAM 1 | | | MG | | | TABLET | | | 60 | | | PELON | | | GIAN | | | , MD 4 | | | 0 | | | 2018-0 | | | 2-28 | | | TEMAZE | | | RACHAEL 15 | | | MG | | | CAPSUL | | | E 30 | | | WILLIAM | | | L | | | TAINA | | | 4 0 | | | 2018-0 | | | 2-25 | | | CLONAZ | | | EPAM 1 | | | MG | | | TABLET | | | 60 | | | PELON | | | GIAN | | | , MD 4 | | | 0 Rx | | | [facility] | | | y (12 | | | Mo.)Me | | | tric | | | Count | | | CS | | | II-V | | | Rx 27 | | | CS-II | | | Rx 11 | | | Quanti | | | ty | | | Dispen | | | sed | | | 1,193 | | | Unique | | | | | | Prescr | | | ibers | | | 8 | | | Unique | | | | | | Pharma | | | cies 1 | | | | | | Benzos | | | 15 | | | Opioid | | | s 12 | | | Long | | | Acting | | | | | | Opioid | | | s 3 | | | The | | | above | | | inform | | | ation | | | is | | | provid | | | ed for | | | the | | | sole | | | purpos | | | e of | | | patien | | | t | | | treatm | | | ent. | | | Use of | | | this | | | inform | | | ation | | | beyond | | | the | | | terms | | | of | | | Data | | | Sharin | | | g | | | Memora | | | ndum | | | of | | | Unders | | | tandin | | | g and | | | Licens | | | e | | | Agreem | | | ent is | | | | | | prohib | | | ited. | | | In | | | certai | | | n | | | cases | | | not | | | all | | | visits | | | may | | | be | | | repres | | | ented. | | | | | | Consul | | | t the | | | aforem | | | ention | | | ed | | | facili | | | ties | | | for | | | additi | | | onal | | | inform | | | ation. | | | ? | | | 2018 | | | [employer] | | | tive | | | Med[employer] | | | l | | | [employer] | | | logies | | | , [employer] | | | - | | | [place] | | | [place] | | | [place], | | | [place] - | | | [email or web address] | | | ollect | | | ivemed | | | icalte | | | [email or web address] | | | | +---+--------+ documented in this encounter Results POC Glucose (06/24/2018 7:25 AM PDT) + +-------+ + + + | Component | Value | Ref Range | Performed | Pathologist | | | | | At | Signature | + +-------+ + + + | Glucose, | 94 | 70 - 110 mg/dL | [facility] | | | | | [facility] | | + +-------+ + + + + + | Specimen | + + | Blood | + + + + + + + | Performing | Address | City/State/Zipcode | Phone Number | | Organization | | | | + + + + + | [facility] | [address] | [place] [address] | [phone] | | [facility] | | | | + + + + + TSH (06/23/2018 9:30 PM PDT) + +-------+ + + + | Component | Value | Ref Range | Performed | Pathologist | | | | | At | Signature | + +-------+ + + + | TSH | 1.92 | 0.36 - 3.74 | [facility] | | | | | uIU/mL | [facility] | [facility] | | | | | | [facility] | | + +-------+ + + + + + | Specimen | + + | Blood | + + + + + + + | Performing | Address | City/State/Zipcode | Phone Number | | Organization | | | | + + + + + | [facility] | [address] | [place] [address] | [phone] | | [facility] | | | | + + + + + Salicylate Level (06/23/2018 9:30 PM PDT) + + + + + + | Component | Value | Ref Range | Performed | Pathologist | | | | | At | Signature | + + + + + + | Salicylate | 1.1 (L)Comment: | 3.0 - 20.0 | [facility] | | | Level | Reference Range: 2.0 - | mg/dL | [facility] | | | | 10.0 mg/dL | | [facility] | | | | Antipyretic/Flshgbunk75. | | LABORATORY | | | | 0 - 25.0 mg/dL | | | | | | Anti-Inflammatory> 30.0 | | | | | | mg/dL Potentially Toxic | | | | | | | | | | + + + + + + + + | Specimen | + + | Blood | + + + + + + + | Performing | Address | City/State/Zipcode | Phone Number | | Organization | | | | + + + + + | [facility] | [address] | [place] [address] | [phone] | | [facility] | | | | + + + + + Ethanol (06/23/2018 9:30 PM PDT) + +-------+ + + + | Component | Value | Ref Range | Performed | Pathologist | | | | | At | Signature | + +-------+ + + + | ALCOHOL, | <3 | 0 - 10 mg/dL | [facility] | | | SER[facility] | | | [facility] | [facility] | | | [facility] | | | | | | [facility] | | + +-------+ + + + + + | Specimen | + + | Blood | + + + + + + + | Performing | Address | City/State/Zipcode | Phone Number | | Organization | | | | + + + + + | [facility] | [address] | [place] [address] | [phone] | | [facility] | | | | + + + + + Comprehensive Metabolic Panel (06/23/2018 9:30 PM PDT) + + + + + + | Component | Value | Ref Range | Performed | Pathologist | | | | | At | Signature | + + + + + + | Na | 140 | 132 - 143 | [facility] | | | | | mmol/L | [facility] | | | | | | [facility] | | + + + + + + | K | 4.1 | 3.3 - 4.9 | [facility] | | | | | mmol/L | [facility] | | | | | | [facility] | | + + + + + + | Cl | 106 | 95 - 108 mmol/L | [facility] | | | | [facility] | | | [facility] | [facility] | | + + + + + + | CO2 | 28 | 23 - 34 mmol/L | [facility] | | [facility] | | | | | | [facility] | | + + + + + + | Anion Gap | 6 (L) | 7 - 16 mmol/L | [facility] | [facility] | | | | | | [facility] | | + + + + + + | Glucose | 89 | 70 - 110 mg/dL | [facility] | [facility] | | [facility] | [facility] | | + + + + + + | BUN | 16 | 5 - 26 mg/dL | [facility] | | | | [facility] | | | | | | [facility] | | + + + + + + | Creatinine | 0.84 | 0.60 - 1.30 | [facility] | | | | | mg/dL | [facility] | | | | | | [facility] | | + + + + + + | eGFR if not | >60Comment: GLOMERULAR | >=60 | [facility] | | | | FILTRATION | mL/min/1.73m2 | [facility] | | | [facility] | RATE,ESTIMATED | | [facility] | | | | mL/min/1.84p2Epub than | | LABORATORY | | | | 60 Chronic kidney | | | | | | disease,if found over a | | | | | | 3-month period.Less than | | | | | | 15 Kidney failureFor | | | | | | | | | | | | Americans,multiply the | | | | | | calculated GFR by 1.21. | | | | | | | | | | + + + + + + | Calcium | 8.3 | 8.3 - 10.0 | [facility] | | | | | mg/dL | [facility] | | + + + + + + | Albumin | 3.5 | 3.0 - 4.5 g/dL | [facility] | | | | | | [facility] | | + + + + + + | Bilirubin | 0.2 | 0.0 - 1.2 mg/dL | [facility] | | | Total | | | [facility] | | + + + + + + | Total | 6.3 (L) | 6.6 - 8.5 g/dL | [facility] | | | Protein | | | [facility] | | + + + + + + | AST | 19 | 0 - 38 U/L | [facility] | | | | | [facility] | | + + + + + + | ALT | 25 | 14 - 59 U/L | [facility] | | | | [facility] | | + + + + + + | Alkaline | 74 | 46 - 116 U/L | [facility] | | | Phosphatase | | | [facility] | | [facility] | | + + + + + + | Globulin | 2.8 | g/dL | [facility] | | | | | | [facility] | | + + + + + + | Albumin/Janey | 1.3 | | [facility] | | | bulin Ratio | | | [facility] | [facility] | | + + + + + + | BUN/Creatin | 19.0 | 7.0 - 24.0 | [facility] | | | ine Ratio | | | [facility] | | [facility] | | + + + + + + + + | Specimen | + + | Blood | + + + + + + + | Performing | Address | City/State/Zipcode | Phone Number | | Organization | | | | + + + + + | [facility] | [address] | [place] [address] | [phone] | | [facility] | | | | + + + + + CBC with Differential (06/23/2018 9:30 PM PDT) + + + + + + | Component | Value | Ref Range | Performed | Pathologist | | | | | At | Signature | + + + + + + | WBC | 6.2 | 4.3 - 10.4 K/uL | [facility] | | | | [facility] | | + + + + + + | RBC | 3.89 (L) | 4.12 - 5.30 | [facility] | | | | | M/uL | [facility] | | + + + + + + | Hemoglobin | 11.1 (L) | 12.4 - 15.7 | [facility] | | | | | g/dL | [facility] | | + + + + + + | Hct | 34.4 (L) | 37.7 - 47.0 % | [facility] | | | | [facility] | | + + + + + + | MCV | 88.4 | 82.0 - 97.0 fL | [facility] | | | | [facility] | | + + + + + + | MCH | 28.5 | 27.1 - 32.3 pg | [facility] | | | | [facility] | | + + + + + + | MCHC | 32.3 | 32.0 - 36.9 | [facility] | | | | | g/dL | [facility] | | + + + + + + | RDW-CV | 13.2 | 0.0 - 17.0 % | [facility] | | | | | | [facility] | | + + + + + + | Platelet | 283 | 150 - 450 K/uL | [facility] | | | Count | | | [facility] | | + + + + + + | MPV | 9.5 | 9.4 - 12.3 fL | [facility] | | | | | | [facility] | | + + + + + + | % | 52.7 | 42.0 - 76.0 % | [facility] | | | Neutrophils | | | [facility] | | [facility] | | + + + + + + | % | 37.7 | 20.0 - 40.0 % | [facility] | | | Lymphocytes | | | [facility] | [facility] | | + + + + + + | % Monocytes | 7.7 | 3.0 - 13.0 % | [facility] | | | | | | [facility] | | + + + + + + | % | 1.1 | 0.0 - 7.0 % | [facility] | | | Eosinophils | | | [facility] | | [facility] | | + + + + + + | % Basophils | 0.5 | 0.0 - 2.0 % | [facility] | | | | | | [facility] | [facility] | [facility] | | + + + + + + | % Immature | 0.3 | 0.0 - 0.5 % | [facility] | | | Granulocyte | | | [facility] | | s | | | [facility] | | | | | | [facility] | | + + + + + + | Absolute | 3.27 | 2.50 - 8.50 | [facility] | | | Neutrophils | | K/uL | [facility] | | + + + + + + | Absolute | 2.34 | 1.00 - 3.80 | [facility] | | | Lymphocytes | | K/uL | [facility] | [facility] | | + + + + + + | Absolute | 0.48 | 0.00 - 0.80 | [facility] | | | Monocytes | | K/uL | [facility] | [facility] | | + + + + + + | Absolute | 0.07 | 0.00 - 0.70 | [facility] | | | Eosinophils | | K/uL | [facility] | [facility] | | + + + + + + | Absolute | 0.03 | 0.00 - 0.20 | [facility] | | | Basophils | | K/uL | [facility] | | [facility] | | + + + + + + | Absolute | 0.02 | 0.00 - 0.15 | [facility] | | | Immature | | K/UL | [facility] | | | Granulocyte | | | [facility] | | | s | | | LAB[facility]ATORY | | + + + + + + | % nRBC | 0 | 0 - 0 per 100 | [facility] | | | | | WBC's | [facility] | | [facility] | | + + + + + + | Absolute | 0.00 | 0.00 - 0.01 | [facility] | | | nRBC | | K/UL | [facility] | | | [facility] | | + + + + + + + + | Specimen | + + | Blood | + + + + + + + | Performing | Address | City/State/Zipcode | Phone Number | | Organization | | | | + + + + + | [facility] | [address] | [place] [address] | [phone] | | [facility] | | | | + + + + + Acetaminophen Level (06/23/2018 9:30 PM PDT) + +---------+ + + + | Component | Value | Ref Range | Performed | Pathologist | | | | | At | Signature | + +---------+ + + + | Acetaminoph | <=2 (L) | 10 - 20 ug/mL | [facility] | | | en Level | | | [facility] | [facility] | [facility] | | + +---------+ + + + + + | Specimen | + + | Blood | + + + + + | Narrative | Performed At | + + + | THERAPEUTIC 10.0-20.0 ug/mL POSSIBLE HEPATIC DAMAGE > 150.0 ug/mL | [facility] | | POTENTIALLY TOXIC > 200.0 ug/mL | [facility] | | | [facility] | + + + + + + + + | Performing | Address | City/State/Zipcode | Phone Number | | Organization | | | | + + + + + | [facility] | [address] | [place] [address] | [phone] | | [facility] | | | | + + + + + Urinalysis with Microscopic with Culture if Indicated (06/23/2018 8:40 PM PDT) + + + + + + | Component | Value | Ref Range | Performed | Pathologist | | | | | At | Signature | + + + + + + | Color | Yellow | Pale Yellow, | [facility] | | | | | Yellow | [facility] | | | | | | [facility] | | + + + + + + | Clarity | Clear | Clear | [facility] | | | | | | [facility] | | + + + + + + | pH, Urine | 7.0 | 5.0 - 7.0 | [facility] | | | | | | [facility] | | [facility] | | [facility] | | + + + + + + | Specific | 1.010 | 1.003 - 1.030 | [facility] | | | [place] | | | [facility] | | | | | | [facility] | | + + + + + + | Protein, | Negative | Negative | [facility] | | | Urine | | | [facility] | | [facility] | | | [facility] | | + + + + + + | Blood, | Negative | Negative | [facility] | | | Urine | | | [facility] | | [facility] | | | [facility] | | + + + + + + | Glucose, | Normal | Normal | [facility] | | | Urine | | | [facility] | | | | | | [facility] | | + + + + + + | Ketones, | Negative | Negative | [facility] | | | Urine | | | [facility] | | | | | | [facility] | | + + + + + + | Bilirubin, | Negative | Negative | [facility] | | | Urine | | | [facility] | | | | | | [facility] | | + + + + + + | Nitrite, | Negative | Negative | [facility] | | | Urine | | | [facility] | | | | | | [facility] | | + + + + + + | Leukocyte | 25 tara/uL (A) | Negative | [facility] | | | Esterase, | | | [facility] | | | Urine | | | [facility] | | | | | | [facility] | | + + + + + + | Urobilinoge | Normal | 0-1.0 mg/dL | [facility] | | | n, Urine | | | [facility] | | | | | | [facility] | | + + + + + + | WBC UA | 0-2 | <=5 /HPF | [facility] | | | | | | [facility] | | | | | | [facility] | | + + + + + + | RBC UA | None Seen | <=5 /HPF | [facility] | | | | | [facility] | | | | | | [facility] | | + + + + + + | SQUAMOUS | Few (A) | None Seen /LPF | [facility] | | | EPITHELIAL | | | [facility] | | UA | | | [facility] | | | | | | [facility] | | + + + + + + | BACTERIA UA | Trace (A) | None Seen /HPF | [facility] | | | | | | [facility] | | | | | | [facility] | | + + + + + + | URINE | Urine Culture Not | | [facility] | | | COMMENT | Indicated | | [facility] | [facility] | [facility] | | + + + + + + + + | Specimen | + + | Urine - Urine | | specimen obtained by | | clean catch | | procedure (specimen) | + + + + + + + | Performing | Address | City/State/Zipcode | Phone Number | | Organization | | | | + + + + + | [facility] | [address] | [place] [address] | [phone] | | [facility] | | | | + + + + + Drugs of Abuse, Screen, Urine (06/23/2018 8:40 PM PDT) + + + + + + | Component | Value | Ref Range | Performed | Pathologist | | | | | At | Signature | + + + + + + | Cannabinoid | Negative | Negative | [facility] | | | s Screen, | | | [facility] | | | Urine | | | [facility] | | | | | | [facility] | | + + + + + + | Cocaine | Negative | Negative | [facility] | | | Screen, | | | [facility] | | | Urine | | | [facility] | | | | | | [facility] | | + + + + + + | Phencyclidi | Negative | Negative | [facility] | | | ne Screen, | | | [facility] | | | Urine | | | [facility] | | | | | | [facility] | | + + + + + + | Methampheta | Negative | Negative | [facility] | | | mine | | | [facility] | | | Screen, | | | [facility] | | | Urine | | | LABORATORY | | + + + + + + | Opiates | Negative | Negative | [facility] | | | Screen, | | | [facility] | | | Urine | | | [facility] | | | | | | [facility] | | + + + + + + | Amphetamine | Negative | Negative | [facility] | | | Screen, | | | [facility] | | | Urine | | | [facility] | | | | | | [facility] | | + + + + + + | Benzodiazep | Negative | Negative | [facility] | | | elder | | | [facility] | | | Screen, | | | [facility] | | | Urine | | | LABORATORY | | + + + + + + | Tricyclic | Negative | Negative | [facility] | | | Antidepress | | | [facility] | | | ants | | | [facility]ITAL | | | Screen, | | | LABORATORY | | | Urine | | | | | + + + + + + | Methadone | Negative | Negative | [facility] | | | Screen, | | | [facility] | | | Urine | | | [facility] | | | | | | [facility] | | + + + + + + | Barbiturate | Negative | Negative | [facility] | | | s Screen, | | | [facility] | | | Urine | | | [facility] | | | | | | [facility] | | + + + + + + | Oxycodone | Negative | Negative | [facility] | | | Screen, | | | [facility] | | | Urine | | | [facility] | | | | | | [facility] | | + + + + + + | Propoxyphen | Negative | Negative | [facility] | | | e Screen, | | | [facility] | | | Urine | | | [facility] | | | | | | [facility]ORY | | + + + + + + | Buprenorphi | Negative | Negative | [facility] | | | ne Screen, | | | [facility] | | | Urine | | [facility] | | | | | | [facility] | | + + + + + + + + | Specimen | + + | Urine - Urine | | specimen obtained by | | clean catch | | procedure (specimen) | + + + + + | Narrative | Performed At | + + + | Qualitative drug screen intended for emergency medical use only. Not | [facility] | | intended for legal purposes. Chain of Custody not maintained. | HOSPITAL | | Confirmation of Positive results must be ordered by the attending | LABORATORY | | physician. Trax-hii-bgrprow drugs may cross react with some methods. | | | Call the laboratory if further information is needed. | | | AMPHETAMINE 500 ng/mL BARBITURATES | | | 200 ng/mL BENZODIAZEPINES | | | 150 ng/mL BUPRENORPHINE 10 ng/mL COCAINE | | | 150 ng/mL METHAMPHETAMINES | | | 500 ng/mL METHADONE | | | 200 ng/mL OPIATES 100 ng/mL | | | OXYCODONE 100 ng/mL PHENCYCLIDINE | | | 25 ng/mL PROPOXYPHENE | | | 300 ng/mL CANNABINOIDS 50 ng/mL | | | TRICYCLIC ANTIDEPRES 300 ng/mL | | + + + + + + + + | Performing | Address | City/State/Zipcode | Phone Number | | Organization | | | | + + + + + | [facility] | [address] | [place] [address] | [phone] | | [facility] | | | | + + + + + documented in this encounter Visit Diagnoses + + | Diagnosis | + + | Suicide ideation - Primary Suicidal ideation | + + | Borderline personality disorder (HCC) Borderline personality disorder | + + documented in this encounter Administered Medications + +--------+ +-------+------+------+ | Medication Order | MAR | Action | Dose | Rate | Site | | | Action | Date | | | | + +--------+ +-------+------+------+ | aspirin chewable tablet 81 mg | Given | 06/25/20 | 81 mg | | | | 81 mg, Oral, DAILY, First dose on | | 18 9:22 | | | | | Sat 18 at 0900 | | AM PDT | | | | + +--------+ +-------+------+------+ +-------+ +-------+---+---+ | Given | 06/24/20 | 81 mg | | | | | 18 8:19 | | | | | | AM PDT | | | | +-------+ +-------+---+---+ + +---+ | | | + +---+ | clonazePAM (klonoPIN) 1 mg | | | tablet Starting 06/24/18 at | | | 1918, For 1 dose, HELIO, | | | GALA Manning: lazaro godinez, | | + +---+ | | | + +---+ + +-------+ +------+---+---+ | clonazePAM (klonoPIN) tablet 1 | Given | 06/24/20 | 1 mg | | | | mg 1 mg, Oral, ONCE, 06/24/18 | | 18 11:48 | | | | | at 1200, For 1 dose, | | AM PDT | | | | | Reproductive Risk: Use | | | | | | | appropriate handling | | | | | | | precautions., | | | | | | + +-------+ +------+---+---+ +---+---+ | | | +---+---+ + +-------+ +------+---+---+ | clonazePAM (klonoPIN) tablet 1 | Given | 06/24/20 | 1 mg | | | | mg 1 mg, Oral, NIGHTLY, First | | 18 7:25 | | | | | dose on 06/24/18 at 2100, | | PM PDT | | | | | Reproductive Risk: Use | | | | | | | appropriate handling | | | | | | | precautions., | | | | | | + +-------+ +------+---+---+ +---+---+ | | | +---+---+ + +-------+ + +---+---+ | HYDROcodone-acetaminophen | Given | 06/23/20 | 1 tablet | | | | (NORCO) 10-325 mg per tablet 1 | | 18 11:00 | | | | | tablet 1 tablet, Oral, ONCE, Fri | | PM PDT | | | | | 06/23/18 at 2315, For 1 dose | | | | | | + +-------+ + +---+---+ +---+---+ | | | +---+---+ + +-------+ + +---+---+ | HYDROcodone-acetaminophen | Given | 06/24/20 | 1 tablet | | | | (NORCO) 10-325 mg per tablet 1 | | 18 7:37 | | | | | tablet 1 tablet, Oral, ONCE, Sat | | AM PDT | | | | | 06/24/18 at 0745, For 1 dose | | | | | | + +-------+ + +---+---+ +---+---+ | | | +---+---+ + +-------+ + +---+---+ | HYDROcodone-acetaminophen | Given | 06/25/20 | 1 tablet | | | | (NORCO) 10-325 mg per tablet 1 | | 18 6:46 | | | | | tablet 1 tablet, Oral, EVERY 6 | | AM PDT | | | | | HOURS PRN, Pain, Starting Sat | | | | | | | 06/24/18 at 1813 | | | | | | + +-------+ + +---+---+ +-------+ + +---+---+ | Given | 06/24/20 | 1 tablet | | | | | 18 6:17 | | | | | | PM PDT | | | | +-------+ + +---+---+ +---+---+ | | | +---+---+ + +-------+ +--------+---+---+ | levothyroxine (SYNTHROID) | Given | 06/25/20 | 88 mcg | | | | tablet 88 mcg 88 mcg, Oral, | | 18 6:11 | | | | | DAILY BEFORE BREAKFAST, First | | AM PDT | | | | | dose on 06/24/18 at 0815, Give | | | | | | | before breakfast., | | | | | | + +-------+ +--------+---+---+ +-------+ +--------+---+---+ | Given | 06/24/20 | 88 mcg | | | | | 18 8:20 | | | | | | AM PDT | | | | +-------+ +--------+---+---+ + +---+ | | | + +---+ | naproxen (NAPROSYN) 500 mg | | | tablet Starting 06/24/18 at | | | 1258, For 1 dose, HOWARD, | | | UNIQUE Ramos: lazaro godinez, | | + +---+ | | | + +---+ + +-------+ +--------+---+---+ | naproxen (NAPROSYN) tablet 500 | Given | 06/25/20 | 500 mg | | | | mg 500 mg, Oral, 2 TIMES DAILY | | 18 9:21 | | | | | WITH BREAKFAST & DINNER, First | | AM PDT | | | | | dose on 06/24/18 at 2100, Give | | | | | | | with food., | | | | | | + +-------+ +--------+---+---+ +-------+ +--------+---+---+ | Given | 06/25/20 | 500 mg | | | | | 18 1:55 | | | | | | AM PDT | | | | +-------+ +--------+---+---+ | Given | 06/24/20 | 500 mg | | | | | 18 1:01 | | | | | | PM PDT | | | | +-------+ +--------+---+---+ + +---+ | | | + +---+ | rOPINIRole (REQUIP) 1 mg tablet | | | Starting 06/23/18 at 2253, | | | For 1 dose, ARIEL BOND: | | | lazaro godinez, | | + +---+ | | | + +---+ + +-------+ +------+---+---+ | rOPINIRole (REQUIP) tablet 2 mg | Given | 06/24/20 | 2 mg | | | | 2 mg, Oral, 4 TIMES DAILY, | | 18 9:06 | | | | | First dose on 06/24/18 at 0900 | | AM PDT | | | | + +-------+ +------+---+---+ +---+---+ | | | +---+---+ + +-------+ +------+---+---+ | rOPINIRole (REQUIP) tablet 2 mg | Given | 06/24/20 | 2 mg | | | | 2 mg, Oral, ONCE, 06/24/18 | | 18 9:15 | | | | | at 0930, For 1 dose | | AM PDT | | | | + +-------+ +------+---+---+ +---+---+ | | | +---+---+ + +-------+ +------+---+---+ | rOPINIRole (REQUIP) tablet 4 mg | Given | 06/23/20 | 4 mg | | | | 4 mg, Oral, ONCE, 8/24/18 | | 18 11:00 | | | | | at 2315, For 1 dose | | PM PDT | | | | + +-------+ +------+---+---+ +---+---+ | | | +---+---+ + +-------+ +------+---+---+ | rOPINIRole (REQUIP) tablet 4 mg | Given | 06/25/20 | 4 mg | | | | 4 mg, Oral, 4 TIMES DAILY, | | 18 6:46 | | | | | First dose (after last | | AM PDT | | | | | modification) on 06/24/18 at | | | | | | | 1300 | | | | | | + +-------+ +------+---+---+ +-------+ +------+---+---+ | Given | 06/24/20 | 4 mg | | | | | 18 7:25 | | | | | | PM PDT | | | | +-------+ +------+---+---+ | Given | 06/24/20 | 4 mg | | | | | 18 1:02 | | | | | | PM PDT | | | | +-------+ +------+---+---+ +---+---+ | | | +---+---+ documented in this encounter
--- OUTSIDE RECORDS SUMMARY | ~2019-09-24 | XMS | Encounter Summary ---
Demographics + + + | Address | [address] | | | [place] [address] | + + + | Home Phone | | + + + | Preferred Language | Unknown | + + + | Marital Status | | + + + | Latter Day Affiliation | 1013 | + + + [...] Team Providers + +------+ + | Care Financial Risk Manager Name | Role | Phone | + +------+ + | Wendi Aiken | PCP | | + +------+ + Reason for Visit + + + | Reason | Comments | + + + | Medication Question | | + + + Encounter Details +--------+ + + + + | Date | Type | Department | Care Team | Description | +--------+ + + + + | 04/03/ | Telephone | [facility] | Nick Martinez, | Medication Question | | 2017 | | PHYSIATRY [address] | PA-C [address] | | | | | [place], | [address] [place] | | | | | [place] [address] | [place] [address] | | | | | [phone] | [phone] | | | | | | | [...] [place] | | | | | | [id number] | | | | | | | | +--------+---------+ + + + documented as of this encounter Visit Diagnoses Not on filedocumented in this encounter"
--- OUTSIDE RECORDS SUMMARY | ~2019-09-24 | XMS | Clinical Summary ---
Demographics + + + | Address | [address] | | | [place] [address] | + + + | Home Phone | | + + + | Preferred Language | Unknown | + + + | Marital Status | | + + + | Protestant Affiliation | 1013 | + + + | Race | Unknown | + + + | Ethnic Group | Unknown | + + + Author + + + | Author | [facility] [employer] (Historical as of | | | 06-16-19) | + + + | Organization | [facility] (Historical as of | | | 06-16-19) | + + + | Address | [...] Team Providers + +------+ + | Care Header Operator Name | Role | Phone | + +------+ + | Romy De La Paz MD | PP | | + +------+ + [...] + + + Current Medications + + + +---------+------+------+-------+ | Prescription | Sig. | Disp. | Refills | Star | End | Statu | | | | | | t | Date | s | | | | | | Date | | | + + + +---------+------+------+-------+ | clonazePAM | Take 1 mg by mouth | | | | | Activ | | (KLONOPIN) 1 MG | nightly. | | | | | e | | tablet | | | | | | | + + + +---------+------+------+-------+ | albuterol | Take 2 ampules by | | | | | Activ | | (ACCUNEB) 1.25 | nebulization every 6 | | | | | e | | MG/3ML nebulizer | (six) hours as | | | | | | | solution | needed for Wheezing. | | | | | | + + + +---------+------+------+-------+ | levothyroxine | Take 100 mcg by | | | | | Activ | | (SYNTHROID) 88 MCG | mouth daily. | | | | | e | | tablet | | | | | | | + + + +---------+------+------+-------+ | ropinirole | Take 2 mg by mouth 4 | | | | | Activ | | (REQUIP) 2 MG tablet | (four) times daily. | | | | | e | + + + +---------+------+------+-------+ | aspirin 81 MG | Take 81 mg by mouth | | | | | Activ | | tablet | daily. | | | | | e | + + + +---------+------+------+-------+ | nitroGLYCERIN | Place 0.4 mg under [...] | | | | + + + +---------+------+------+-------+ | acetaminophen | Take 500 mg by | | | | | Activ | | (TYLENOL) 500 MG | mouth. | | | | | e | | tablet | | | | | | | + + + +---------+------+------+-------+ | mirabegron ER 25 | Take 25 mg by mouth. | | | | | Activ | | MG 24 hr tablet | | | | | | e | + + + +---------+------+------+-------+ | NARCAN 4 MG/0.1ML | instill 1 spray in 1 | | 0 | 06/1 | | Activ | | LIQD | NOSTRIL if needed | | | /20 | | e | | | for opioid overdose | | | 18 | | | | | may re... (REFER TO | | | | | | | | PRESCRIPTION | | | | | | | | NOTES). | | | | | | + + + +---------+------+------+-------+ | naproxen | Take 500 mg by mouth | | | | | Activ | | (NAPROSYN) 500 MG | 2 (two) times daily | | | | | e | | tablet | with meals. | | | | | | + + + +---------+------+------+-------+ | Loratadine 10 MG | Take 10 mg by mouth. | | | | | Activ | | CAPS | | | | | | e | + + + +---------+------+------+-------+ | ropinirole | Take 4 mg by mouth. | | | | | Activ | | (REQUIP) 4 MG tablet | | | | | | e | + + + +---------+------+------+-------+ | Multiple | Take 1 tablet by | | | | | Activ | | Vitamins-Minerals | mouth daily. | | | | | e | | (MULTIVITAMIN WITH | | | | | | | | MINERALS) tablet | | | | | | | + + + +---------+------+------+-------+ | methocarbamol | Take 500 mg by mouth | | | | | Activ | | (ROBAXIN) 500 MG | 4 (four) times | | | | | e | | tablet | daily. | | | | | | + + + +---------+------+------+-------+ | ranitidine | Take 150 mg by mouth | | | | | Activ | | (ZANTAC) 150 MG | 2 (two) times | | | | | e | | tablet | daily. | | | | | | + + + +---------+------+------+-------+ | ondansetron | Take 24 mg by mouth | | | | | Activ | | (ZOFRAN) 24 MG | once. | | | | | e | | tablet | | | | | | | + + + +---------+------+------+-------+ | | Apply to affected | 34457 g | 3 | 04/30 | 04/30 | Activ | | lidocaine-prilocaine | area 2 or 3 times a | | | 03/19 | 02/17 | e | | (EMLA) | day | | | 19 | 20 | | | creamIndications: | | | | | | | | Intractable back | | | | | | | | pain, Chronic pain | | | | | | | | disorder | | | | | | | + + + +---------+------+------+-------+ | fentaNYL | Place 1 patch onto | 10 | 0 | 04/30 | | Activ | | (DURAGESIC) 25 | the skin every third | patch | | /20 | | e | | MCG/HRIndications: | day for 30 days. | | | 19 | | | | Intractable back | | | | | | | | pain, Closed | | | | | | | | compression fracture | | | | | | | | of fifth lumbar | | | | | | | | vertebra, sequela, | | | | | | | | Low back pain, | | | | | | | | unspecified back | | | | | | | | pain laterality, | | | | | | | | unspecified | | | | | | | | chronicity, with | | | | | | | | sciatica presence | | | | | | | | unspecified, | | | | | | | | Encounter for | | | | | | | | long-term use of | | | | | | | | opiate analgesic | | | | | | | + + + +---------+------+------+-------+ | Transparent | 1 patch by Does not | 30 each | 1 | 07/ | | Activ | | Dressings (TEGADERM | apply route daily as | | | 5/20 | | e | | FILM 4"X4-2") | needed for up to 30 | | | 19 | | | | MISCIndications: | days. | | | | | | | Intractable back | | | | | | | | pain | | | | | | | + + + +---------+------+------+-------+ | | Take 1 tablet by | 120 | 0 | 04/30 | | Activ | | HYDROcodone-acetamin | mouth every 6 (six) | tablet | | 5/20 | | e | | ophen (NORCO) | hours as needed for | | | 19 | | | | 7.5-325 MG per | Pain for up to 30 | | | | | | | tabletIndications: | days. | | | | | | | Intractable back | | | | | | | | pain, Closed | | | | | | | | compression fracture | | | | | | | | of fifth lumbar | | | | | | | | vertebra, sequela, | | | | | | | | Low back pain, | | | | | | | | unspecified back | | | | | | | | pain laterality, | | | | | | | | unspecified | | | | | | | | chronicity, with | | | | | | | | sciatica presence | | | | | | | | unspecified, | | | | | | | | Encounter for | | | | | | | | long-term use of | | | | | | | | opiate analgesic | | | | | | | + + + +---------+------+------+-------+ Active Problems + + + | Problem | Noted Date | + + + | Postlaminectomy syndrome, thoracic region | 06/07/2019 | + + + + + | Overview: Added automatically from request for surgery [id number] | + + + + + | Radiculopathy of thoracolumbar region | 06/07/2019 | + + + + + | Overview: Added automatically from request for surgery [id number] | + + + + + | Radiculopathy, lumbosacral region | 06/07/2019 | + + + + + | Overview: Added automatically from request for surgery [id number] | + + + + + | Spondylosis without myelopathy or radiculopathy, cervical region | 03/20/2019 | + + + + + | Overview: Added automatically from request for surgery [id number] | + + + + + | Spondylosis without myelopathy or radiculopathy, lumbosacral | 03/20/2019 | | region | | + + + + + | Overview: Added automatically from request for surgery [id number] | + + + + + | Chronic bilateral low back pain without sciatica | 03/20/2019 | + + + + + | Overview: Added automatically from request for surgery [id number] | + + + + + | Strain of lumbar region | 02/25/2019 | + + + + + | Overview: Added automatically from request for surgery [id number] | + + + + + | Lumbar region somatic dysfunction | 02/25/2019 | + + + + + | Overview: Added automatically from request for surgery [id number] | + + + + + | Chronic low back pain with sciatica | 02/25/2019 | + + + + + | Overview: Added automatically from request for surgery [id number] | + + + + + | Intervertebral disc disorders with radiculopathy, lumbosacral | 02/25/2019 | | region | | + + + + + | Overview: Added automatically from request for surgery [id number] | + + + + + | Spinal stenosis of lumbosacral region | 02/25/2019 | + + + + + | Overview: Added automatically from request for surgery [id number] | + + + + + | Chronic pain disorder | 11/21/2018 | + + + | Encounter for long-term use of opiate analgesic | 11/21/2018 | + + + | Degenerative lumbar spinal stenosis | 11/12/2018 | + + + | Closed compression fracture of L5 lumbar vertebra | 06/07/2018 | + + + + + | Overview: Added automatically from request for surgery [id number] | | Problem List [employer] | + + + + + | [...] | +--------+ + + + + | 08/03/ | Hospital | | Maykel Hutchins MD | Postlaminectomy | | 2019 | Encounter | | | syndrome, thoracic | | | | | | region; | | | | | | Radiculopathy of | | | | | | thoracolumbar | | | | | | region; | | | | | | Radiculopathy, | | | | | | lumbosacral region | +--------+ + + + + | 08/03/ | Procedure | | | | | 2018 | Pass | | | | +--------+ + + + + | 08/03/ | Surgery | | Maykel Hutchins MD | SPINAL CORD | | 2018 | | | | STIMULATOR - | | | | | | THORACIC LAMINECTOMY | +--------+ + + + + from [...] +---------+ + | Yes | | | not often..twice per year | + + +---------+ + + + + | Sex Assigned at | Date Recorded | | | | + + + | Not on file | | + + + Last Filed Vital Signs + + + + | Vital Sign | Reading | Time Taken | + + + + | Blood Pressure | 99/53 | 05/14/2019 10:06 AM PDT | + + + + | Pulse | 78 | 05/14/2019 10:06 AM PDT | + + + + | Temperature | 36.6 C (97.8 F) | 03/28/2019 2:23 PM PDT | + + + + | Respiratory Rate | 16 | 05/14/2019 10:06 AM PDT | + + + + | Oxygen Saturation | 97% | 05/14/2019 10:06 AM PDT | + + + + | Inhaled Oxygen | - | - | | Concentration | | | + + + + | Weight | 49.5 kg (109 lb 3.2 | 05/14/2019 10:06 AM PDT | | | oz) | | + + + + | Height | 154.9 cm (5' 1") | 05/14/2019 10:06 AM PDT | + + + + | Body Mass Index | 20.63 | 05/14/2019 10:06 AM PDT | + + + + [...] + + + + | Vaccine: Zoster (1 | | | | | of 2) | 7 | | | + + [...] | | | | | (#1) | 9 | | | + + + + [...] / Lot | + +------+-------+ +--------+--------+--------+ | Autopax W/Vertaplex | | N/A: | YULIYA | | 06/30/ | [id number] | | HvImplanted: Qty: 1 on | | Back | | | 2019 | 015 | | 06/13/2018 by Alfredo Casillas, | | | | | | / | | DO | | | | | | /[id number] | | | | | | | | 2 | + +------+-------+ +--------+--------+--------+ | Stim Nrv Lead Octrode 60cm - | | | [facility] | | 11/23/ | [id number] | | [id number]: Qty: 1 on | | | MEDICAL - | | 2020 | S | | 03/28/2019 by Sonja, | | | JU | | | /[id number] | | DO Alfredo | | | | | | 330 / | + +------+-------+ +--------+--------+--------+ Results Not on filefrom Last 3 Months Insurance + +--------+ +------+-------+ + | Payer | Benefi | Subscriber | Type | Phone | Address | | | t Plan | ID | | | | | | / | | | | | | | Group | | | | | + +--------+ +------+-------+ + | MEDICARE | MEDICA | [id number] | | | [address] | | | RE | | | | [place] [phone] | | | IP-OP | | | | | + +--------+ +------+-------+ + | COMMERCIAL OTHER | COMMER | [id number] | | | | | | CIAL [...] | Self | [birth year] | Home: | [address] | | [place] | al/Fam | | [phone] | [phone] [place] [address] | | | jose | | [phone] | | + +--------+ +--------+ + +
--- OUTSIDE RECORDS SUMMARY | ~2019-09-24 | XMS | Encounter Summary ---
Demographics + + + | Address | [address] | | | [place] [address] | + + + | Home Phone | | + + + | Preferred Language | Unknown | + + + | Marital Status | | + + + | Sabianist Affiliation | 1013 | + + + | Race | Unknown | + + + | Ethnic Group | Unknown | + + + Author + + + | Author | [facility] [employer] (Historical as of | | | 06-16-19) | + + + | Organization | [facility] (Historical as of | | | 06-16-19) [...] Providers + +------+ + | Care Market Director Name | Role | Phone | + +------+ + | Romy De La Paz MD | PCP | | + +------+ + Encounter Details +--------+ + + + + | Date | Type | Department | Care Team | Description | +--------+ + + + + | 08/03/ | Procedure | [facility] | | | | 2019 | Pass | [facility] Center | | | | | | Operating Room [address] | | | | | | [address] [facility] | | | | | | [place] [address] | | | | | | [phone] | | | +--------+ + + + [...] this encounter Plan of Treatment Not on fileas of this encounter Visit Diagnoses Not on filein this encounter"
--- OUTSIDE RECORDS SUMMARY | ~2019-09-24 | XMS | Encounter Summary ---
Demographics + + + | Address | [address] | | | [place] [address] | + + + | Home Phone | | + + + | Preferred Language | Unknown | + + + | Marital Status | | + + + | Religion Affiliation | 1013 | + + + | Race | Unknown | + + + | Ethnic Group | Unknown | + + + Author + + + | Author | [facility] [employer] (Historical as of | | | 06-16-19) | + + + | Organization | [facility] (Historical as of | | | [...] Team Providers + +------+ + | Care Metal Polisher Name | Role | Phone | + +------+ + | Romy De La Paz MD | PCP | | + +------+ + Encounter Details +--------+---------+ + + + | Date | Type | Department | Care Team | Description | +--------+---------+ + + + | 08/03/ | Surgery | [facility] | Maykel Hutchins MD | SPINAL CORD | | 2019 | | [facility] | [address] | STIMULATOR - | | | | Operating Room [address] | [place] [address] | THORACIC LAMINECTOMY | | | | [address] | [phone] | | | | | [place] [address] | | | | | | [phone] | | | +--------+---------+ + + + [...] on fileas of this encounter Visit Diagnoses + + | Diagnosis | + + | Postlaminectomy syndrome, thoracic region | + + | Radiculopathy of thoracolumbar region | + + | Thoracic or lumbosacral neuritis or radiculitis, unspecified | + + | Radiculopathy, lumbosacral region | + + | Thoracic or lumbosacral neuritis or radiculitis, unspecified | + + Admitting Diagnoses + + | Diagnosis | + + | M96.1 M54.16 M54.17 | + +"
--- OUTSIDE RECORDS SUMMARY | ~2019-09-24 | XMS | Encounter Summary ---
Demographics + + + | Address | [address] | | | [place] [address] | + + + | Home Phone | | + + + | Preferred Language | Unknown | + + + | Marital Status | | + + + | Adventist Affiliation | 1013 | + + + | Race | Unknown | + + + | Ethnic Group | Unknown | + + + Author + + + | Author | [facility] | | | and Priteshana | + + + | Organization | [facility] | | | [...] Team Providers + +------+ + | Care Cnc Manufacturing Engineer Name | Role | Phone | [...] + + + | Closed | | | Diagnoses | Juan, | [facility] | | | | | Lumbar | [facility] | | | | | radiculopath | [address] | | | | | y | [address] | [address] | | | | | Procedures | [address] | [place], [place] | | | | | MRI Lumbar | [place], | [address] | | | | | Spine wo | [place] [address] | Phone: | | | | | Contrast | Phone: | [phone] | | | | | | [phone] | Fax: | | | | | | Fax: | [phone] | | | | | | [phone] | | +--------+--------+ + + + + Reason for Visit + + + | Reason | Comments | + + + | Follow-up | Discuss Injections | + + + Encounter Details +--------+---------+ + + + | Date | Type | Department | Care Team | Description | +--------+---------+ + + + | 04/03/ | Office | [facility] | Juan, Nick, | Lumbar radiculopathy | | 2018 | Visit | PHYSIATRY [address] | PA-C [address] | (Primary Dx); BACK | | | | [place], | [address] [place] | PAIN, LUMBAR; | | | | [place] [address] | [place] [address] | SACROILIITIS; DDD | | | | [phone] | [phone] | (degenerative disc | | | | | | disease), lumbar; | | | | | | Facet arthritis of | | | | | | lumbar region (HCC); | | | | | | Foraminal stenosis | | | | | | of lumbar region - | | | | | | left L5-S1; | | | | | | Scoliosis of lumbar | | | | | | spine, unspecified | | | | | | scoliosis type | +--------+---------+ + + + Social History [...] + + + | Blood Pressure | 101/65 | 04/03/2018 11:17 AM | | | | | PDT | | + + + + + | Pulse | 87 | 04/03/2018 11:17 AM | | | | | PDT [...] Weight | 53.5 kg (118 lb) | 04/03/2018 11:17 AM | | | | | PDT | | + + + + + | Height | 157.5 cm (5' 2") | 04/03/2018 11:17 AM | | | | | PDT | | + + + + + | Body Mass Index | 21.58 | 04/03/2018 11:17 AM | | | | | PDT | | + + + + + documented in this encounter Patient Instructions Patient Instructions Nick Martinez PA-C - 04/03/2018 11:20 AM PDT Follow-up at the hospital thirty [...] of the procedure you must provide a jinriksha driver to take you home. For all procedur es it is recommended that someone else drive you home. Possible Causes of Low Back or Leg Pain The symptoms in your back or leg may be due to pressure on a nerve. This pressure may be ca used by a damaged disk or by abnormal bone growth. Either way, you may feel pain, burning, t ingling, or numbness. If you have pressure on a nerve that connects to the sciatic nerve, pa in may shoot down your leg. Pressure from the disk Constant wear and tear can weaken a disk over time and cause back pain. The disk can then b e damaged by a sudden movement or injury. If its soft center begins to bulge, the disk may p ress on a nerve. Or the outside of the disk may tear, and the soft center may squeeze throug h and pinch a nerve. Pressure from bone As a disk wears out, the vertebrae right above and below the disk begin to touch. This can put pressure on a nerve. Often, abnormal bone (called bone spurs) grows where the vertebrae rub against each other. This can cause the foramen or the spinal canal to narrow (called chelsea nosis) and press against a nerve. Date Last Reviewed: 08/03/201519991519-2811 [facility]. [address] [place] [address], [place] [address]. All righ ts reserved. This information is not intended as a substitute for professional medical care. Always follow your healthcare professional's instructions. documented in this encounter Progress Notes Nick Martinez PA-C - 04/03/2018 11:20 AM PDTFormatting of this note might be different fro m the original. CHIEF COMPLAINT: Chief Complaint Patient presents with Follow-up Discuss Injections HISTORY OF PRESENT ILLNESS: The patient is a 72 y.o. female being seen today in follow-up for complaints of left low ba ck pain with radiation into left SI and left gluteal. The patient has been seen for this c omplaint in the past, with initial visit started by Dr. Dietz. Previously it was recom mended that she receive a bilateral L5/S1 facet steroid injections, this was done 07/06/2016, she reports 6 months of good relief. Patient was also referred to neurosurgery but due to p sychological condition she was deemed a poor candidate for surgery. 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 She also reports a re cent sensation of a pop in her left lower back while pulling in hunched over position. Sinc e that pop sensation, approximately 6 weeks ago, she has been in extreme pain and discomfort . She was prescribed narcotics for this pain management. She reports today having more low back pain with left leg pain. She reports her pain is sh stefani and shooting, worse with walking and lying on that hip, the pain radiation down the left gluteal region. She indicates having more low back pain that is hot and sharp in character . 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 Her pain ba ck is worse with bending over and better with rest, sitting in a chair. The patient admits to walking 5-6 miles a day however since this recent incident of low back pain she has been unable to walk more than a few paces before having to succumb to pain. The patient does describe numbness of the left leg that has been chronic. She does report weakness of the legs. She does not have bowel and bladder dysfunction. She does not hav e saddle anesthesia. Treatments for these complaints have included prior L5-S1 injections and facet injections w deon Dietz, physical therapy, narcotic medications, NSAIDS and neuropathic pain medi cine which has not helped in the past. Patient's medications, allergies, past medical, surgical, social and family histories were reviewed and updated as appropriate. CURRENT MEDICATIONS: Current Outpatient Prescriptions Medication Sig Dispense Refill acetaminophen (TYLENOL) 500 mg tablet Take 500 mg by mouth every 6 hours as needed for Pain. clonazepam (KLONOPIN) 2 MG tablet Take 1 mg by mouth Twice daily as needed. HYDROcodone-acetaminophen (NORCO) 10-325 mg per tablet Take 1 tablet by mouth every 6 h ours as needed. ibuprofen (ADVIL,MOTRIN) 600 MG tablet Take 600 mg by mouth every 6 hours as needed for Pain. levothyroxine (SYNTHROID) 100 mcg tablet Take 100 mcg by mouth every morning (before br eakfast). lidocaine (LIDODERM) 5% patch Apply up to 3 patches TOPICALLY at one time, for up to 12 hours within a 24-hour period 30 patch 0 LIDOCAINE-PRILOCAINE EX Apply 2 g topically 3 times daily. Loratadine 10 MG CAPS Take by mouth. methocarbamol (ROBAXIN) 750 mg tablet Take 750 mg by mouth 4 times daily. mirabegron (MYRBETRIQ) 25 mg ER tablet Take 25 mg by mouth Daily. ranitidine (ZANTAC) 150 MG capsule Take 150 mg by mouth as needed. Ropinirole HCl (REQUIP XL) 6 MG TB24 Take 4.5 mg by mouth 4 times daily. No current facility-administered medications for this visit. ALLERGIES: Allergies Allergen Reactions Prednisolone Other (See Comments) Depression/suicidal Lorazepam Morphine Zolpidem REVIEW OF SYSTEMS: (in [...] rashes. HEMATOLOGIC/LYMPHATIC: No abnormal bleeding PHYSICAL EXAMINATION: Vitals: 04/03/18 1117 BP: 101/65 Pulse: 87 PainSc: 7 PainLoc: Back Body mass index is 21.58 kg/m. GENERAL: The patient is well developed and well nourished. She does appear uncomfortable w hen seated. HEENT: HEAD/FACE: EYES: Normocephalic and atraumatic. There are no areas of recent trauma. Normal sclerae without icterus. SKIN Limited skin exam shows no significant rashes or lesions. There are not scars in the lumbar region. CHEST: The patient is in no acute respiratory distress with unlabored respirations. HEART: There is not lower extremity edema. ABDOMEN: The patient is not overweight. NEUROLOGIC: The patient is awake, alert, and oriented to time, place, person. She follows simple and complex commands. Her speech is fluent. She comprehends speech well. She has no apparent deficits with short or weaver dobby loom memory. She has appropriate fund of knowledge Cranial nerves 2-12 appear grossly intact. Sensory exam does not show diminished sensation to light touch in the lower extremities. REFLEX: RIGHT LEFT PATELLAR 2+ 2+ ACHILLES 0+ 1+ MUSCULOSKELETAL There is no major palpable deformity of the spine. Straight leg raise and slump-sit are positive on the left. Alejandro's maneuver and impingem ent testing were negative for any groin pain but reproduced right lateral hip pain. There was tenderness to palpation over the left L5-S1 region as well as the left SI. The patient localized the majority of the pain to the L5/S1 region. Mild tenderness to palpation over b ilateral trochanter bursa. Lumbar facet loading was positive. Strength testing showed 4-/5 strength throughout the right lower extremity and 4/5 over the left lower extremity. The pa tient was unable to heel and toe walk secondary to pain and poor right-sided motor strength. There was no redness, effusion, warmth or joint line tenderness in the knees or ankles. RADIOGRAPHIC REVIEW: The patient's imaging was reviewed in detail with the patient today during the visit. Lumba r MRI from 2014 shows lumbar DDD, scoliosis, foraminal stenosis at L5/S1 on the left. The patient brought in her radiology report for her recent 3 views lumbar x-ray. DDD most s evere at L5/S1 with diffuse facet arthropathy. ASSESSMENT: 1. 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 BACK PAIN, LUMBAR 3. SACROILIITIS 4. DDD (degenerative disc disease), lumbar 5. Facet arthritis of lumbar region (HCC) 6. Scoliosis of lumbar spine, unspecified scoliosis type 7. Lumbar radiculopathy PLAN: 1) Today we discussed the patient's differential diagnosis with the likely primary issue be ing foraminal stenosis with subsequent lumbar radiculopathy L>R. Patient's description of sy mptoms, physical exam, and imaging suggest this diagnosis at this time. 2) I counseled patient on treatment options which included conservative self management usi ng OTC NSAIDs/Ice and heat packs, physical therapy, prescription medications, epidural stero id injection, as well as possible surgical intervention. 3) Imaging: MRI was ordered to assess lumbar spine for herniation, disc pathology, and/or nerve root impingement that may be contributing to patient's symptoms. 4) We decided it would be best to proceed with Left L5/S1 TFESI treatment. I have also orde red topical lidocaine patches. Patient's narcotics are being manage by outside provider. She was worried she would "run ou t of pain meds" before her injection. I encourage patient to follow up with narcotic provide r once she is scheduled for TFESI in order to be under pain management medication until her injection date. I am hoping lidocaine patches with aid in bridging pain control until TFESI. 5) Patient will follow up with me in 6 weeks to discuss any imaging and/or progress with to day's treatment plan. 6) If current treatment plan is insufficient for symptom relief we could try additional inj ections or referral to pain clinic as the next therapy option. ELECTRONICALLY SIGNED BY: Nick Martinez PA-C, 04/03/2018 documented in this en counter Plan of Treatment +--------+---------+ + + + | Date | Type | Specialty | Care Team | Description | +--------+---------+ + + + | 10/15/ | Office | Pain Medicine | Denys Sibley, | | | 2019 | Visit | | DO [address] | | | | | | [address] [place] | | | | | | [address] | | | | | | | | +--------+---------+ + + + + +---------+--------+ + + | Name | Type | Priori | Associated Diagnoses | Order Schedule | | | | ty | | | + +---------+--------+ + + | FL BRITTNEY Lumbar | Imaging | Routin | Lumbar | Expected: | | Transforaminal | | e | radiculopathy | 04/03/2018, Expires: | | | | | | 04/04/2019 | + +---------+--------+ + + | MRI Lumbar Spine wo | Imaging | Routin | Lumbar | Expected: | | Contrast | | e | radiculopathy | 04/03/2018, Expires: | | | | | | 04/04/2019 | + +---------+--------+ + + documented as of this encounter Procedures + +--------+ + + + | Procedure Name | Priori | Date/Time | Associated Diagnosis | Comments | | | ty | | | | + +--------+ + + + | IMAGING REPORT - | | 05/09/2018 | | Results for this | | EXTERNAL SCAN | | 12:00 AM | | procedure are in the | | | | PDT | | results section. | + +--------+ + + + | IMAGING REPORT - | | 03/25/2018 | | Results for this | | EXTERNAL SCAN | | 12:00 AM | | procedure are in the | | | | PDT | | results section. | + +--------+ + + + documented in this encounter Results IMAGING REPORT - EXTERNAL SCAN (05/09/2018 12:00 AM PDT) + + + | Narrative | Performed At | + + + | Ordered by an | | | unspecified provider. | | + + + IMAGING REPORT - EXTERNAL SCAN (03/25/2018 12:00 AM PDT) + + + | Narrative | Performed At | + + + | Ordered by an | | | unspecified provider. | | + + + documented in this encounter Visit Diagnoses + + | Diagnosis | + + | Lumbar radiculopathy - Primary Thoracic or lumbosacral neuritis or radiculitis, | | unspecified | + + | BACK PAIN, LUMBAR Lumbago | + + | SACROILIITIS Sacroiliitis, not elsewhere classified | + + | DDD (degenerative disc [...] spine, unspecified scoliosis type | + + documented in this encounter
--- OUTSIDE RECORDS SUMMARY | ~2019-09-24 | XMS | Encounter Summary ---
Demographics + + + | Address | [address] | | | [place] [address] | + + + | Home Phone | | + + + | Preferred Language | Unknown | + + + | Marital Status | | + + + | Holiness Affiliation | 1013 | + + + [...] Team Providers + +------+ + | Care Exhibit Artist Name | Role | Phone | + +------+ + | Miquel Calhoun MD | PCP | | + +------+ + Reason for Visit + + + | Reason | Comments | + + + | Appointment | | + + + Encounter Details +--------+ + + + + | Date | Type | Department | Care Team | Description | +--------+ + + + + | 08/16/ | Telephone | [facility] | Shay Dietz | Appointment | | 2012 | | PHYSIATRY [address] | | | | | [place], | [place], [place] | | | | | [place] [address] | [address] | | | | | [phone] | | | +--------+ + + + [...] [place] | | | | | | [id number] | | | | | | | | +--------+---------+ + + + documented as of this encounter Visit Diagnoses Not on filedocumented in this encounter"
--- OUTSIDE RECORDS SUMMARY | ~2019-09-24 | XMS | Encounter Summary ---
Demographics + + + | Address | [address] | | | [place] [address] | + + + | Home Phone | | + + + | Preferred Language | Unknown | + + + | Marital Status | Single | + + + | Catholic Affiliation | NON | + + + [...] Team Providers + +------+ + | Care Director Translation Name | Role | Phone | + +------+ + PCP | Unavailable | + +------+ + Encounter Details +--------+ + + + + | Date | Type | Department | Care Team | Description | +--------+ + + + + | 06/30/ | Discharge | | Summary, Discharge | D/C Summary ODDS | | 2005 | Summary-Tra | | | | | | nscribed | | | | +--------+ + + [...] + + documented as of this encounter Discharge Summaries Interface, Greens Or Grounds Superintendent In - 08/03/2006 2:03 AM PDT [id number]/ [id number] ROSANA Suarez [id number] Admission Date: 06/26/2006 Discharge Date: 06/30/2006 Staff Physician: Sherita Madrid M.D., M.P.H. Principal Final Diagnosis: Major depressive disorder with suicidal attempt with Vicodin overdose. Additional Diagnoses: 1. Delirium. 2. Hypophosphatemia. 3. Hypokalemia. Principal Procedure: 1. Chest x-ray with minimal bibasilar subsegmental atelectasis, left greater than right, otherwise clear lungs. 2. Significant lab findings included phosphorus levels all the way down to 0.5 during admission; this increased to 3.8 with supplementation. Potassium level is as low as 2.8; this increased to 4.0 on discharge. Renal function was normal. Her INR was only as high as 1.2, acetaminophen level at outside hospital prior to admission was up to 120, but this decreased to undetectable levels. AST was maximum 128; this was 19 on discharge. ALT was 186; this was 47 on discharge. Her CBC was unremarkable. INR on discharge was 1.1. Urinalysis was unremarkable as well. ABGs showed mild metabolic alkalosis. ABGs were 7.47, 30, 93, and 23 on room air. Salicylate levels undetectable. Drug screen was positive for opiates. Vitamin D level is pending at this time. TSH was 2.6. Ethanol level was negative. Urine osmolality 561, urine potassium was 59, urine creatinine was 92, and urine phosphorus was 28. Please see admission H and P for full details. Briefly, this is a 61-year-old female with a history of depression, suicide attempts, admitted after a Vicodin overdose. 1. Vicodin overdose. The patient's Tylenol levels were significantly elevated on admission. These quickly decreased. The patient underwent a NAC protocol and completed a course of this IV. Her acetaminophen levels quickly were undetected and transaminases normalized. She never had significant liver dysfunction during hospitalization. The patient was seen by Psychiatry Consult Service. In brief, they had her psychiatric medications held. They had recommended to return her to previous doses of her psychiatric medications with followup with her psychiatrist as soon as possible. The patient denied any suicidal attempt on discharge and throughout most of hospitalization. 2. Delirium. The patient originally had some delirium most likely secondary to narcotic use. This resolved by transfer to the floor, and she had no evidence of infection or other causes of delirium such as hepatic encephalopathy. 3. Electrolyte abnormalities. The patient with hypokalemia and hypophosphatemia. During admission, she had no complications with these; however, she was quite low with a phosphorus level of 0.5 and potassium level down to 2.1. These were repleted, and the patient maintained normal levels on discharge. Recommended the patient, however, that she follow up with her primary care doctor in [place] to get lab followup within the next several days. Fraction excretion of phosphorus was 19%, but this was when her phosphorus had been repleted. It does indicated that she is not losing phosphorus out of her urine; however, thought most likely her hypophosphatemia was related to respiratory alkalosis. Discharge Medication(s): Levothyroxine 100 mcg a day, ropinirole 1 mg p.o. nightly, Cymbalta 60 mg p.o. q. day, trazodone 100 mg p.o. nightly, and Lamictal 350 mg p.o. nightly. New medication includes potassium chloride 40 mEq p.o. q. day. Discharge Diet: Regular. Activity: As tolerated. Followup: The patient is to follow up with her psychiatrist, Dr. Pham; his phone number is [phone]. She is to make a followup appointment with him within the next week. The patient is also to follow up with Dr. Kel Young, he is located as well in [place], [place], and is associated with [facility]. She is to follow up with him for repeat electrolytes including potassium, magnesium, and phosphorus within the next several days. Monroe Disla M.D. Sherita Madrid M.D., M.P.H. / [id number] / [id number] / [id number] / [id number] cc: * Dr. Pham [facility], [place] FAX: [phone] Kel Young M.D. Electronically signed by Sherita Madrid 08-02-2006 11:01:13 AM documented i n this encounter Plan of Treatment Not on filedocumented as of this encounter Visit Diagnoses Not on filedocumented in this encounter"
--- OUTSIDE RECORDS SUMMARY | ~2019-09-24 | XMS | Encounter Summary ---
Demographics + + + | Address | [address] | | | [place] [address] | + + + | Home Phone [...] Team Providers + +------+ + | Care Case Reviewer Name | Role | Phone | + +------+ + | Romy De La Paz MD | PCP | | + +------+ + Reason for Visit +--------+ + | Reason | Comments | +--------+ + | Triage | | +--------+ + Encounter Details +--------+ + + + + | Date | Type | Department | Care Team | Description | +--------+ + + + + | 08/31/ | Telephone | [facility] | Alfredo Casillas DO | Triage | | 2019 | | [facility] | [address] | | | | | MEDICINE RADHA | [place] [address] | | | | | [address] | [phone] | | | | | [place], [place] | | | | | | [address] | | | | | | [phone] | | | +--------+ + + + [...] [place] | | | | | | [address] | | | | | | | | +--------+---------+ + + + documented as of this encounter Visit Diagnoses Not on filedocumented in this encounter"
--- OUTSIDE RECORDS SUMMARY | ~2019-09-24 | XMS | Encounter Summary ---
Demographics + + + | Address | [address] | | | [place] [address] | + + + | Home Phone [...] Author + + + | Author | [facility] | + + + | Organization | [facility] | + + + | Address | Unknown | + + + | Phone | Unavailable | + + + Support + + +---------+ + | Name | Relationship | Address | Phone | + + +---------+ + | Royce Menchaca | ECON | Unknown | | + + +---------+ + Care Team Providers + +------+ + | Care Manager Drilling Name | Role | Phone | + [...] | Chest | Referring | [place] [address] | | | | | pressure | Provider Per | [address] | | | | | Procedures | Patient NO | [address] | | | | | [place] NEW | REFERRING | [place], [place] | | | | | PATIENT | PROVIDER PER | [address] Phone: | | | | | LEVEL V [place] | PT | [phone] | | | | | OFFICE/OUTPT | | Fax: | | | | | | | [phone] | | | | | VISIT,EST,LE | | | | | | | GINA III [place] | | | | | | | OFFICE/OUTPT | | | | | | | | | | | | | | VISIT,EST,LE | | | | | | | VL IV CA | | | | | | | [...] Fuchs MD | Chest pain, | | 2015 | Visit | at [facility] [address] | [address] | unspecified type | | | | [place] Mailcode: | [address] [facility], | (Primary Dx); | | | | [address] | [place] [address] | Palpitations | | | | [facility], | [phone] | | | | | [facility] | | | | | | floor [place], [place] | | | | | | [address] | | | | | | [phone] | | | +--------+---------+ + + + [...] test. documented in this encounter Progress Notes Tiago Blake DO - 03/16/2016 1:57 PM PDTATTENDING NOTE: I saw and evaluated Ms. Rubio with Dr. Fuchs. Management discussed in detail. I agree with the findings, assessment and plan of care as per Dr. Fuchs's note. Tiago Blake DO Ophthalmology Technician Clinical stockfeed miller/ Division of Cardiovascular Medicine Airam Nicole Md - 03/09/2016 3:27 PM PDT [facility] General Cardiology New Patient Evaluation Patient [...] ED. She was then transf erred to [facility] in [facility] where she was put into the ICU [...] every couple of weeks. She comes to [facility] today because she wants a second opinion [...] as of this encounter Results LIPID LAB [facility] - LIPID PROFILE- PLASMA LIPIDS, HDL AND [...] | + + + + + | [facility]IP[facility] | [address] | [place], [place] | | | | [address] | [address] | | + + + + + documented in this encounter Visit Diagnoses + + | Diagnosis | + + | Chest pain, unspecified type - Primary | + + | Palpitations | + + documented in this encounter
--- OUTSIDE RECORDS SUMMARY | ~2019-09-24 | XMS | Encounter Summary ---
Demographics + + + | Address | [address] | | | [place] [address] | + + + | Home Phone [...] Team Providers + +------+ + | Care Aerospace Medicine Physician Name | Role | Phone | + [...] Specialty | Neurosurgery | Diagnoses | | [place], | | | Services | | Foraminal | Spenser, | Darrin | | | Required | | stenosis of | Yaneli, | Franki, PA-C | | | | | lumbar | PA-C [address] | [address] | | | | | region | [address] | [address] | | | | | Chronic low | [place], [place] | [place], | | | | | back pain | [address] | [place] [address] | | | | | Facet | Phone: | Phone: | | | | | arthritis of | [phone] | [phone] | | | | | lumbar | Fax: | Fax: | | | | | region | [phone] | [phone] | | | | | Scoliosis of | | | | | | | lumbar | | | | | | | spine Acute | | | | | | | renal | | | | | | | failure | | | | | | | (HCC) | | | | | | | Procedures | | | | | | | [place] OFFICE | | | | | | | CONSULTATION | | | | | | | NEW/ESTAB | | | | | | | PATIENT 60 | | | | | | | MIN | | | +--------+ + + + + + Encounter Details +--------+ + + + + | Date | Type | Department | Care Team | Description | +--------+ + + + + | 06/06/ | Orders Only | [facility] [place] | Shahnazdanodustincz, | Foraminal stenosis | | 2013 | | PHYSIATRY [address] | [address] | of lumbar region - | | | | [place], | [address] [place], | left L5-S1 (Primary | | | | [place] [address] | [place] [address] | Dx); Chronic low | | | | [phone] | [phone] | back pain; Facet | | | | | | arthritis of lumbar | | | | | | region; Scoliosis of | | | | | | lumbar spine; Acute | | | | | | renal failure | +--------+ + + + + Social [...] [place] | | | | | | [address] | | | | | | | | +--------+---------+ + + + + + +--------+ + + | Name | Type | Priori | Associated Diagnoses | Order Schedule | | | | ty | | | + + +--------+ + + | * KRUNAL MONTE | Outpatient | Routin | Foraminal stenosis | Ordered: 06/06/2014 | | Neurosurgery - [facility]B | Referral | e | of lumbar region - | | | Referral | | | left L5-S1 Chronic | | | | | | low back pain Facet | | | | | | arthritis of lumbar | | | | | | region Scoliosis | | | | | | of lumbar spine | | | | | | Acute renal failure | | + + +--------+ + + documented as of this encounter Visit Diagnoses + + | Diagnosis | + + | 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
--- OUTSIDE RECORDS SUMMARY | ~2019-09-24 | XMS | Encounter Summary ---
Demographics + + + | Address | [address] | | | [place] [address] | + + + | Home Phone | | + + + | Preferred Language | Unknown | + + + | Marital Status | Single | + + + | Baptism Affiliation | NON | + + + [...] Team Providers + +------+ + | Care Police Surgeon Name | Role | Phone | + +------+ + | Oxana Nye | PCP | | + +------+ + Encounter Details +--------+ + + + + | Date | Type | Department | Care Team | Description | +--------+ + + + + | 10/04/ | MyChart | Cardiology General | | Appointment Location | | 2015 | Encounter | at [facility] [address] | | Change: Effective | | | | Mcadams Brittany Mailcode: | | October 31 | | | | [address] | | | | | | [facility], | | | | | | | | | | | | floor [place], [place] | | | | | | [address] | | | | | | [phone] | | | +--------+ + + + [...]
--- OUTSIDE RECORDS SUMMARY | ~2019-09-24 | XMS | Encounter Summary ---
Demographics + + + | Address | [address] | | | [place] [address] | + + + | Home Phone | | + + + | Preferred Language | Unknown | + + + | Marital Status | | + + + | Amish Affiliation | [phone] | + + + | Race | Unknown | + + + | Ethnic Group | Unknown | + + + Author + + + | Author | [facility] | | | and Priteshana | + + + | Organization | [facility] | | | and [...] Team Providers + +------+ + | Care Bilingual Sales Representative Name | Role | Phone | [...] | Specialty | Physical | Diagnoses | [facility], | | | | Services | Therapy | Scoliosis | Darrin | | | | Required | | of lumbar | [address] [address] | | | | | | spine Facet | [address] | | | | | | arthritis | [address] | | | | | | of lumbar | [address] | | | | | | region | [place], | | | | | | | [place] [address] | | | | | | | Phone: | | | | | | | [phone] | | | | | | | Fax: | | | | | | | [phone] | | +--------+ + + + + + Reason for Visit + + + | Reason | Comments | + + + | Follow-up | MRI f/u | + + + Encounter Details +--------+---------+ + + + | Date | Type | Department | Care Team | Description | +--------+---------+ + + + | 09/10/ | Office | [facility] | Darrin Hoyos | Scoliosis of lumbar | | 2013 | Visit | NEUROSURGERY [address] | [address] | spine (Primary Dx); | | | | [address] | [address] | Facet arthritis of | | | | [place], [place] | [place], [place] | lumbar region | | | | [address] | [address] | | | | | [phone] | | | +--------+---------+ + + + [...] + + + | Blood Pressure | 123/76 | 09/10/2014 3:12 PM | | | | | PST | | + + + + + | Pulse | 85 | 09/10/2014 3:12 PM | | | | | PST | | + + + + + | Temperature | - | - | | + + + + + | Respiratory Rate | 18 | 09/10/2014 3:12 PM | | | | | PST | | + + + + + | Oxygen Saturation | - | - | | + + + + + | Inhaled Oxygen | - | - | | | Concentration | | | | + + + + + | Weight | 64.4 kg (142 lb) | 09/10/2014 3:12 PM | | | | | PST | | + + + + + | Height | 162.6 cm (5' 4") | 09/10/2014 3:12 PM | | | | | PST | | + + + + + | Body Mass Index | 24.37 | 09/10/2014 3:12 PM | | | | | PST | | + + + + + documented in this encounter Patient Instructions Patient Instructions Darrin Hoyos PA - 09/10/2014 3:54 PM PSTToday you decided yo u would like to sit down and discuss your options further with Dr. gonzales regarding your low ba ck and your back and leg pain. Continue to followup with your primary care provider we will set up an appointment in the near future with Dr. gonzales to discuss your options documented in this encounter Progress Notes Darrin Hoyos PA - 09/10/2014 3:58 PM PSTFormatting of this note might be differen t from the original. PEE Vang [address] [place] [address], [address] [place], [place] [id number] FAX: NEUROSURGERY HISTORY AND PHYSICAL EXAMINATION CHIEF COMPLAINT: Chief Complaint Patient presents with Follow-up MRI f/u HISTORY OF PRESENT ILLNESS: The patient is a 69 y.o. female with the complaint of low back and leg pain. Patient was seen previously seen in our office and evaluated. Bedtime she d id not want to consider any sort of surgery. She continue to followup with physiatry. She had an injection this last month which did not help her much. She had an episode of lighthe adedness and hypotension sometime later that day. I spent a fair amount talking to the korina ent today as well as a friend who is present with her. She talks about continuing to fall. Again it's very difficult to get a straight history as to the cause of her fall her the sym ptoms feeling prior to falling over. She was quickly save that she had not been drinking at the time of her last fall. She also talks about having episodes where she has "seizures" a nd problems intermittently with speaking. The patient is also continuing to have significan t low back pain as well some left leg pain and weakness. She would like to consider a surgi rah option at this point as she feels that her conservative therapy has not been helpful in relieving her symptoms. At the time of her last visit the patient was sent for a cervical M RI secondary to being hyperreflexive and having some upper extremity symptoms as well as her balance issues. This patient has had ongoing problems with her low back and left leg for quite some time. Unfortunately it has been getting worse. She complains of pain which starts in her low haider k and radiates down the posterior portion of her left leg down into her foot. She notices s ome numbness and tingling in the lateral portion of her left foot. She notices that her leg is weak at times as well. The patient has been following with physiatry and has had multip le injections which have been somewhat helpful for her symptoms. She has evidently a also s emilyn a surgeon in [facility] he stated she did not need to have surgery according to her repo rt. She also reports she had a recent MRI in the [facility] which I do not have to review. The patient states that most activities make her back and leg pain worse. 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 She has been falling more lately. She also notices weakness of her left arm. The patient notices pain in her left arm as well some neck discomfort. She does notice some loss of fine motor skills of her hands as well as she has been dropping things. This patient has multiple ongoing medical problems which include a history of depression an d anxiety as well as PTSD. She has a history of suicidal attempts which are multiple. Her last attempt was earlier this year. She has used overdose of medications of suicide in the past. She states she is not currently suicidal nor does she have any suicidal ideations. S he is very frustrated however because of her ongoing low back pain and her inability to be n ormal. She does tear up easy through the exam today. The patient also has a history of acacia betes which is evidently diet-controlled. She also has a history of what sounds like CVAs i n the past. I also note on her problem and she has a history of a seizure disorder as well as renal failure and asthma history PAST MEDICAL HISTORY: Past Medical History Diagnosis Date Nausea and [...] stress disorder) Left lumbar radiculopathy 11/01/2012 Feet PAST SURGICAL HISTORY: Past Surgical History Procedure Date Hysterectomy Cholecystectomy Cystocele repair Fracture surgery ANKLE Colonoscopy 2009 Breast surgery LUMPECTOMY Sling removal , bladder CURRENT MEDICATIONS: Current Outpatient Prescriptions Medication Sig Dispense Refill albuterol 5 mg/mL nebulizer solution Take 2.5 mg by nebulization every 6 hours as neede d. clonazepam (KLONOPIN) 2 MG tablet Take 2 mg by mouth Twice daily as needed. CYCLOBENZAPRINE HCL PO Take by mouth as needed. ergocalciferol (VITAMIN D-2) 50,000 units [...] of 44. Alcohol abuse Father PHYSICAL EXAMINATION: Blood pressure 123/76, pulse 85, resp. rate 18, height 1.626 m (5' 4"), weight 64.411 kg (1 42 lb). Body mass index is 24.36 kg/(m^2). GENERAL: Kori Rubio is in no acute distress with unlabored respirations. The patient does not appear uncomfortable throughout the exam today. HEENT: HEAD/FACE: EYES: EARS: NASOPHARNYX: OROPHARNYX: Normocephalic and atraumatic. There are no areas of recent trauma. Normal sclerae without icterus. No drainage or tenderness. Clear without drainage. Clear without erythema. NECK (ANTERIOR): Supple and without palpable masses. CHEST: Clear to ausculation without crackles or wheeze. HEART: Regular rate and rhythm without murmurs. ABDOMEN: Soft, non-tender, non-distended, and without palpable masses. The patient is not obese. SPINE: There is no tenderness in the midline of the cervical or thoracic spine. There is n o major palpable deformity of the spine. The lumbar spine shows there is no tenderness in the midline of the L3, L4, L5, S1 levels. To palpation, there is signficant bilaterally myofascial tenderness. EXTREMITIES: No cyanosis, clubbing, or edema. Distal pulses are palpable. NEUROLOGICAL EXAM: MENTAL STATUS: The patient is awake, alert, and oriented. She follows simple and complex commands. She speech is fluent, she comprehends speech well, and she repeats well. She has no apparent deficits with short or nursing home memory. CRANIAL NERVES: II: Acuity is intact. Armendariz are full to confrontation. III, IV, : The pupils are reactive. Extraocular movements are intact. No ptosis is note d. V: Facial sensation is intact and symmetric. VII: Facial movements are symmetric. VIII: Hearing is intact bilaterally. IX, X: The uvula and palate move appropriately. XI: Shrug is equal bilaterally. XII: Tongue protrusion is midline. MOTOR EXAM: (5 IS NORMAL) * Indicates pain limited MUSCLE/ MOVEMENT: RIGHT LEFT Deltoids 5 4+ Biceps 5 5 Triceps 5 5 Wrist Flexion 5 5 Wrist Extension 5 5 Median Intrinsics 5 4 Ulnar Intrinsics 5 4 Special Services Agent Strength 5 4 Hip Flexion 5 4 Hip Extension 5 4 Knee Flexion 5 4 Knee Extension 5 4 Dorsiflexion 5 3 Extensor Hallicus Longus 5 4 Plantarflexion 5 5 SENSORY EXAM: Sensory exam shows decreased sensation to light touch over the upper and lower extremity on the left. Both sides are very mild to the right side REFLEXES: (2 OR 2+ IS NORMAL) REFLEX: RIGHT LEFT BICEPS 2 2 BRACHIORADIALIS 2+ 2+ TRICEPS 2+ 2+ PATELLAR 3 3 ACHILLES 2 2 GARCIA'S ABSENT positive PLANTAR DOWNGOING DOWNGOING GAIT: antalgic RADIOGRAPHIC REVIEW: Patient cervical MRI shows no sign of cervical stenosis and no sign of cord signal changes The patient's imaging was reviewed in detail with the patient today during the visit. The images show degenerative disc disease throughout her lumbar spine with some facet arthropath y. She has neuroforaminal narrowing worst at L5-S1 on the left. There is no sign of spinal stenosis. MRI does not show signs of spondylolisthesis or instability however no plain x-r ays are noted ASSESSMENT: NEUROSURGICAL DIAGNOSES: Encounter Diagnoses Name Primary? Scoliosis of lumbar spine Yes Facet arthritis of lumbar region GENERAL DIAGNOSES: Past Medical History Diagnosis Date [...] disorder) Left lumbar radiculopathy 11/01/2012 Feet PLAN: It was a pleasure meeting and evaluating this patient today, and I greatly appreciate the roshni stevens. 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 and most likely affecting her left leg and causing some of her left leg pain. She has other issues going on as well which I can't fully explain. Such as her "seizure" activity as well as her multiple falling. She's evid ently a history of strokes in the past which certainly can affect her left side. Personally I do not see any sign on her MRI of cervical myelopathy. The patient would like to visit w deon gonzales to discuss options regarding surgery regarding her low back and her left leg yessica n. We will get this appointment set up in the near future to discuss her options I spent 25 minutes in visit with Kori Rubio and her friend today with the majority of time spent counselling the patient on her diagnosis, options for her care, and c oordinating her care. ELECTRONICALLY SIGNED BY: PEE Vang, 09/10/2014 16:03 documented in th is encounter Plan of Treatment +--------+---------+ + + + | Date | Type | Specialty | Care Team | Description | +--------+---------+ + + + | 10/15/ | Office | Pain Medicine | Denys Sibley, | | | 2019 | Visit | | DO [address] | | | | | | [place] | | | | | | [id number] | | | | | | | | +--------+---------+ + + + + + +--------+ + + | Name | Type | Priori | Associated Diagnoses | Order Schedule | | | | ty | | | + + +--------+ + + | OUTPATIENT PT | Outpatient | Routin | Scoliosis of | Ordered: 09/10/2014 | | EXTERNAL | Referral | e | lumbar spine Facet | | | | | | arthritis of lumbar | | | | | | region | | + + +--------+ + + documented as of this encounter Visit Diagnoses + + | Diagnosis | + + | Scoliosis of lumbar spine - Primary Scoliosis (and kyphoscoliosis), idiopathic | + + | Facet arthritis of lumbar region Lumbosacral spondylosis without myelopathy | + + documented in this encounter
--- OUTSIDE RECORDS SUMMARY | ~2019-09-24 | XMS | Encounter Summary ---
Demographics + + + | Address | [address] | | | [place] [address] | + + + | Home Phone [...] Team Providers + +------+ + | Care Warehouse Record Clerk Name | Role | Phone | [...] | | [address] | [place] [address] | | | | | [place] | [phone] | | | | | [address] | | | | | | [phone] | | | +--------+ + + + [...] [place] | | | | | | [address] | | | | | | | | +--------+---------+ + + + documented as of this encounter Visit Diagnoses Not on filedocumented in this encounter"
--- OUTSIDE RECORDS SUMMARY | ~2019-09-24 | XMS | Encounter Summary ---
Demographics + + + | Address | [address] | | | [place] [address] | + + + | Home Phone | | + + + | Preferred Language | Unknown | + + + | Marital Status | | + + + | Oriental Orthodox Affiliation | 1013 | + + + | Race | Unknown | + + + | Ethnic Group | Unknown | + + + Author + + + | Author | [facility] | | | and Priteshana | + + + | Organization | [facility] | | [...] Team Providers + +------+ + | Care Sql Ssrs Ssis Developer Name | Role | Phone | + +------+ + | Miquel Calhoun MD | PCP | | + +------+ + Encounter Details +--------+ + + + + | Date | Type | Department | Care Team | Description | +--------+ + + + + | 11/14/ | Hospital | [facility] | Earnest Acosta MD | Hypothyroid; History | | 2013 - | Encounter | MEDICAL [facility]ENTER | [address] | of oral aphthous | | | | CLINICAL DECISION | [address], | ulcers; Anemia, | | | | [address] | [place] [address] | unspecified; | | 2013 | | [place] | [phone] | Aspiration pneumonia | | | | [address] | | ([facility]); COPD | | | | [phone] | | (chronic obstructive | | | | | | pulmonary disease) | | | | | | ([facility]); Generalized | | | | | | anxiety disorder; | | | | | | Low back ache; Gait | | | | | | difficulty; Impaired | | | | | | mobility and ADLs; | | | | | | Anxiety state, | | | | | | unspecified | +--------+ + + + + Social [...] documented as of this encounter Discharge Summaries Fran Barnes MD - 11/19/2013 7:21 PM PST Discharge Summaries by Fran Barnes MD at 11/19/131920 Author: Fran Barnes MD Service: Hospitalist Author Type: Physician Filed: 11/27/13 1140 Date of Service: 11/19/131920 Status: Signed Infrastructure Engineer: Fran Barnes MD (Physician) Related Notes: Original Note by Fran Barnes MD (Physician) filed at 11/20/13 1418 Patient ID: Ronald Gutierreztyfawthrop [id number] 68 y.o. 1945 Admit date: 11/14/2013 Discharge date and time: 11/19/2013 Admitting Physician: Jana Norris DO Discharge Physician: MD Maricruz Consults: Primary Discharge Diagnoses: Anemia, unspecified [285.9] Generalized anxiety disorder [300.02] COPD (chronic obstructive pulmonary disease) [496] Low back ache [724.2] Aspiration pneumonia [507.0] Altered mental status [780.97] (altered mental status) Hypothyroid [244.9] Secondary Discharge Diagnoses Discharged Condition: stable Significant Diagnostic Studies: Lab Results Component Value Date WBC 5.6 11/19/2013 HGB 10.7* 11/19/2013 HCT 32.8* 11/19/2013 MCV 85.2 11/19/2013 PLT 222 11/19/2013 GLUCOSE Date Value Range Status 11/19/2013 108* 65 - 99 mg/dL Final Testing performed at [facility], [address] [place] [address] BUN Date Value Range Status 11/19/2013 12 8 - 25 mg/dL Final Testing performed at [facility], [address] [place] [address] CREATININE Date Value Range Status 11/19/2013 0.80 0.50 - 1.00 mg/dL Final Testing performed at [facility], [address] [place] [address] BUN/CREAT Date Value Range Status 11/19/2013 15 Final Testing performed at [facility], [address] [place] [address] TOTAL PROTEIN Date Value Range Status 11/17/2013 5.2* 6.3 - 8.2 g/dL Final Testing performed at [address] [address] GLOBULIN Date Value Range Status 11/17/2013 2.1 1.3 - 4.9 g/dL Final Testing performed at [address] [address] TBIL Date Value Range Status 11/17/2013 0.6 0.1 - 1.5 mg/dL Final Testing performed at [address] [address] ALT Date Value Range Status 11/17/2013 21 10 - 65 U/L Final Testing performed at [facility], [address] [place] [address] AST Date Value Range Status 11/17/2013 19 10 - 45 U/L Final Testing performed at [address] [address] SODIUM Date Value Range Status 11/19/2013 133* 135 - 143 mmol/L Final Testing performed at [address] [address] POTASSIUM Date Value Range Status 11/19/2013 3.9 3.5 - 4.9 mmol/L Final Testing performed at [facility], [address] [place] [address] CHLORIDE Date Value Range Status 11/19/2013 101 99 - 109 mmol/L Final Testing performed at [facility], [address] [place] [address] CO2 Date Value Range Status 11/19/2013 24 23 - 32 mmol/L Final Testing performed at [facility], [address] [place] [address] ANION GAP AGAP Date Value Range Status 11/19/2013 12 5 - 20 mmol/L Final Testing performed at [facility], [address] [place] [address] X-ray Lumbar Spine Limited 2-3 Views 11/18/2013 RONALD KOWTHROP XR LUMBAR SPINE LIMITED 2-3 VIEW 11/18/2013 4:56 PM HISTO RY: 68 years. Female. Back pain TECHNIQUE: XR LUMBAR SPINE LIMITED 2-3 VIEW. Frontal, lat eral, cone-down. Total of 3 images obtained. COMPARISON: None. FINDINGS: Levoconvex curv ature of the lumbar spine. Salguero angle = 22.5?. There appears be diffuse osteopenia but there is no compression fractures. No subluxation. Foramen appear patent. Degenerative changes wi th facet hypertrophy most prominent at the L5-S1 level. 11/18/2013 1. No evidence of fracture or subluxation. 2. Levoconvex curvature of the lumb ar spine Salguero angle = 22.5? 3. Diffuse osteopenia correlate with DEXA. Electronically si gned by Hang Torre MD on 11/18/2013 7:52 PM X-ray Hips Bilateral 11/18/2013 RONALD KOWTHROP XR HIPS BILATERAL 11/18/2013 4:56 PM HISTORY: 68 years. Female. Bilateral hip pain no history of trauma but the patient has altered mental status TECHNIQUE: XR HIPS BILATERAL. Frontal, left and right frog-leg lateral views of the hips. 3 Total of 3 images obtained. COMPARISON: None. FINDINGS: Bony pelvic ring is intact. Hips are symmetric in appearance. Femoral heads are round and smooth. Femoral neck and proximal f emoral shaft are normal. No significant degenerative changes of the hips. No erosive lesions . 11/18/2013 1. No evidence of fracture or dislocation of either left or right hip. Elect ronically signed by Hang Torre MD on 11/18/2013 7:[address] Head Without Contrast 11/14/2013 RONALD CASTAÑEDA [address] HEAD WO CONTRAST 11/14/2013 8: 58 PM INDICATION: Unresponsive. Intubated. COMPARISON: None TECHNIQUE: CT scan of the hea d without contrast. 5-mm axial noncontrast images were acquired from the foramen magnum thr ough the cranial vertex. FINDINGS: An ovoid low density focus in the right lentiform nucleu s measures 10 mm greatest dimension, probably a lacunar infarct, versus less likely a dilate d perivascular space. There is no evidence of acute infarct. Mild supratentorial white matte r disease is noted, likely white matter ischemic gliosis. No intracranial mass or hemorrhage is found. Mild probable age-related volume loss is noted with associated ventricular promin ence, without hydrocephalus. No orbital abnormalities are found. The paranasal sinuses are c lear. No mastoid fluid is found. Degenerative changes of the right temporomandibular joint a re noted. No worrisome lytic or blastic bony lesions are found. 11/14/2013 1. No acute intracranial pathology. 2. Hypodense focus in the right lentiform was, probably old lacunar infarct. 3. Senescent changes, as above. X-ray Chest 1 View 11/16/2013 RONALD CASTAÑEDA XR CHEST 1 VIEW 11/16/2013 6:21 AM History: 68 years. F emale. Acute respiratory failure secondary to drug overdose. Followup for pulmonary infiltr ates. Technique: AP portable upright technique was performed at 0519 hours. Comparison: Findings: Heterogeneous, moderate alveolar infiltrates are visualized in the perihil ar lung valenzuela bilaterally, somewhat greater on the right than the left, relatively unchange d as compared with 11/15/13. The lung bases are clear. No pleural effusion noted. The inspir atory effort is moderate. The patient is mildly rotated to the right. The cardiac volume is normal. A left jugular central venous catheters in good position with its tip in the superi or vena cava. The endotracheal tube is been removed. 11/16/2013 1. Persistent mild to moderate alveolar infiltrates suggesting mild alveolar pu lmonary edema, unchanged. 2. Endotracheal extubation. X-ray Chest 1 View 11/15/2013 RONALDTITI KOWTHROP XR CHEST 1 VIEW 11/15/2013 6:08 AM History: 68 years. F emale. Acute respiratory failure secondary to drug overdose. Followup exam. Technique: AP portable upright technique was performed at 0524 hours. Comparison: 11/14/13 Findings: The inspiratory effort is moderate. Moderate peribronchial infiltrates are visualized in the ce ntral lung valenzuela bilaterally, upper and lower zones, unchanged as compared with 11/14/13. T he infiltrates are nonspecific, suggesting mild alveolar pulmonary edema, or aspiration pneu monia. The lung bases are clear. No pleural effusion. The cardiac volume is normal. The pul monary logan and mediastinal contours are normal. The thoracic aorta is normal, without dilat ation or calcification. The tip of the endotracheal tube is at T5. A left jugular central v enous catheters in good position with its tip in the superior vena cava. A nasogastric tube is positioned in the stomach. 11/15/2013 1. Persistent mild bilateral peribronchial and alveolar infiltrates suggesting pulmonary edema or aspiration, unchanged as compared with 11/14/13. 2. Satisfactory positio n of life-support catheters. 7: 40 AM X-ray Chest Ap Only 11/14/2013 RONALD WASHBURNHROP XR CHEST 1 VIEW 11/14/2013 11:33 PM HISTORY: Assessment f or life support lines and tubes. TECHNIQUE: AP chest film 2344 hrs. COMPARISON: AP chest f ilm 11/14/13 at 2030 hrs. FINDINGS: The well-positioned endotracheal tube and nasogastric tu be are unchanged. The right internal jugular central venous catheter has been advanced, curr ently with the tip at the atriocaval junction Patchy bilateral airspace disease is again see n, relatively unchanged, most significant in the right midlung field. No pneumothorax or ple ural effusion is found. The cardiac silhouette is normal. Mild unchanged scoliosis is again found. Cholecystectomy clips are again seen. 11/14/2013 1. Other than advancement of the central venous catheter, currently with the ti p at the atriocaval junction, no significant interval change. Xr Chest 1 View 11/14/2013 Also seen is a left internal jugular approach central venous catheter, the tip overlying the region of the mid to distal superior vena cava. 11/14/2013 RONALD CASTAÑEDA XR CHEST 1 VIEW 11/14/2013 8:56 PM HISTORY: Respiratory f ailure. TECHNIQUE: AP chest film. COMPARISON: None. FINDINGS: A well-positioned endotrach eal tube is noted. Patchy airspace disease is noted bilaterally, most significant in the rig ht midlung field. No pneumothorax or pleural effusion is found. The cardiac silhouette is no rmal. A nasogastric tube is present, with the tip extending to the gastric body, and probabl y off of the film. Moderate gastric distention is noted. An ovoid artifact likely overlies t he stomach. Mild convex right curvature of the thoracic spine is found. Mild convex left cur vature of the upper lumbar spine is seen. No worrisome lytic or blastic bony lesions are obs erved. Cholecystectomy clips are observed. 11/14/2013 1. Status post intubation and placement of nasogastric tube, as above. 2. Non specific patchy bilateral airspace disease, potentially pneumonia or pulmonary alveolar lars a. Echo Cardiac Adult Limited 11/15/2013 Patient Name: RONALD CASTAÑEDA Date of : 1945 Performing Physician: Finesse Cortez MD INDICATIONS altered mental status, copd CONCLUSIONS ------- ---- 1. This was a technically difficult study with suboptimal views. 2. Overall left ventri cular systolic function is normal with, an EF between 60 - 65 %. 3. Mild mitral annular calc ification present. FINDINGS -------- ECG rhythm: Resting tachycardia (HR>100bpm). Study: A limited 2-dimensional transthoracic echocardiogram with limited spectral and color flow Dopp ler was performed. Study: This was a technically difficult study with suboptimal views. Study: Patient in pain not able to hold still for echo. Left Ventricle: Overall left ventric ular systolic function is normal with, an EF between 60 - 65 %. Left Ventricle: The left ve ntricle cavity size is normal. Left Ventricle: Left ventricular wall thickness is normal. Left Ventricle: Cannot assess diastolic function due to tachycardia. Left Atrium: The left a trial size is normal. Right Atrium: The right atrial size is normal Right Atrium: , and the RA measures 3.7cm. Aortic Valve: The aortic valve was not well visualized. Aortic Valve: Th ere is no evidence of aortic regurgitation. Aortic Valve: There is no evidence of aortic st enosis. Mitral Valve: Mild mitral annular calcification present. Tricuspid Valve: The tricus pid valve was not well visualized. Tricuspid Valve: Trace tricuspid regurgitation present. Tricuspid Valve: Right ventricular systolic pressure (pulmonary artery systolic pressure) i s normal at < 35 mmHg. Pulmonic Valve: The pulmonic valve was not well visualized. Pericardi um: There is no pericardial effusion. IVC/Hepatic Veins: The IVC is normal size (1.5-2.5cm) and collapses <50% with sniff, consistent with central venous pressures of 10-15mmHg. MEASU REMENTS LA Major: 3.64 cm EDV(Teich): 78.10 ml IVSd: 0.86 cm LVIDd: 4. 18 cm LVPWd: 0.76 cm LVOT Diam: 1.94 cm %FS: 36.37 % EF(Teich): 66.49 % ESV(Teich): 26.16 ml IVSs: 1.14 cm LVIDs: 2.66 cm LVPWs: 1.14 cm SV(Teich): 51.93 ml RA Major: 3.67 cm IVC diameter: 2.38 cm IVC collapse: 1.58 cm IVC % collapse: 30.95 % HR: 1 31.95 BPM AV maxP.31 mmHg AV meanP.05 mmHg AV Vmax: 1.44 m/s AV Vmean: 1.08 m/s AV VTI: 23.26 cm SHABNAM Vmax: 3.14 cm2 SHABNAM (VTI): 2.90 cm2 LVCI Dopp: 4.57 l/minm2 LVCO Dopp: 7.95 l/min HR: 117.60 BPM LVOT maxP.36 mmHg LVOT meanP.28 mmHg LV SI Dopp: 38.87 ml/m2 LVSV Dopp: 67.64 ml LVOT Vmax: 1.52 m/s LVOT Vmean: 1.10 m/s LV OT VTI: 22.79 cm MV A Mark: 1.31 m/s MV DecT: 74.24 ms MV E Mark: 1.08 m/s MV E/A Rati o: 0.82 Septal e': 0.16 m/s Septal E/e': 6.57 Lateral e': 0.10 m/s Lateral E/e': 10.66 RAP: 10 mmHg RVSP: 33.88 mmHg TR maxP.88 mmHg TR Vmax: 2.44 m/s Sonogr apher: AB Authenticated by: Finesse Cortez MD Report Date/Time: 11-15-2013 18:08:31 11/15/2013 1. This was a technically difficult study with suboptimal views. 2. Overall left ventricular systolic function is normal with, an EF between 60 - 65 %. 3. Mild mitral annul ar calcification present. HPI and Hospital Course: 1. A 68-year-old female with past medical history of depression wi th multiple suicidal attempts in the past, history of severe COPD secondary to paint inhalat ion, history of anxiety, restless leg syndrome, GERD, diabetes type 2 diet controlled, hypot hyroidism, who came to the emergency department, who was admitted to [facility] on November 14, 2013, when she was found to be unresponsive by EMS and thought to be secondary to Flexeril overdose and alcohol intoxication, and alcohol level was more than 300 , and patient was found to be hypotensive. Hence, she was intubated and brought to the [facility] from outside hospital and was started on dopamine and norepinephri ne and Tylenol level was checked, which was 44, for which she was put on acetylcysteine prot ocol and was transferred to medical floor on November 15, 2013, and Dr. Moore from psychia tric service was consulted after patient stabilized and she was taken to [facility] under Dr. Diana's care. 2. Chronic back pain, for which patient was discharged to [facility] on [facility] in p.r.n. 3. Aphthous ulcers. On lidocaine gel t.i.d. p.r.n. 4. Anxiety. Clonazepam p.r.n. 5. Anemia. Complete iron panel and B12 are within normal limits and patient's stools are gu aiac negative and her hemoglobin is stable around 9 to 10. It is likely secondary to anemia of chronic disease. I took more than 30 minutes on discharge. BP 96/53 | Pulse 84 | Temp 98.9 F (37.2 C) (Oral) | Resp 18 | Wt 66.225 kg (146 lb) | S pO2 97% | ? No Intake/Output Summary (Last 24 hours) at 11/19/13 1921 Last data filed at 11/19/13 1659 Gross per 24 hour Intake 1160 ml Output 2400 ml Net -1240 ml Discharge Exam: Constitutional: Alert and oriented to person, place, and time. Appears well-developed and w ell-nourished. Cardiovascular: Normal rate, regular rhythm, normal heart sounds and intact distal pulses. Exam reveals no gallop and no friction rub. No murmur heard. Pulmonary/Chest: Effort normal and breath sounds normal. No stridor. No respiratory distres s. no wheezes. no rales. exhibits no tenderness. Abdominal: Soft. Bowel sounds are normal. exhibits no distension and no mass. There is no t enderness. There is no rebound and no guarding. Musculoskeletal: Normal range of motion.exhibits no tenderness. exhibits no edema. Neurological: Alert and oriented to person, place, and time. Has normal reflexes. display s normal reflexes. No cranial nerve deficit. Exhibits normal muscle tone. Skin: Skin is warm and dry. No rash noted. No erythema. No pallor. Disposition: [facility] in patient psychiatric facility Patient Instructions: Medication List As of 11/19/2013 7:21 PM START taking these medications amoxicillin-clavulanate 875-125 MG per tablet QTY: 6 tablet Refills: 0 Commonly known as: AUGMENTIN Take 1 tablet by mouth every 12 (twelve) hours. aspirin 81 MG EC tablet QTY: 30 tablet Refills: 11 Take 1 tablet by mouth daily with breakfast. benzocaine 7.5 % oral gel QTY: 9.45 g Refills: 0 Commonly known as: BABY ORAJEL Tid prn for blisters in mouth calcium-vitamin D 600-400 MG-UNIT per tablet QTY: 60 tablet Refills: 11 Commonly known as: CALCITRATE Take 1 tablet by mouth 2 (two) times daily with meals. clonazePAM 0.5 MG tablet QTY: 60 tablet Refills: 0 Commonly known as: KlonoPIN Take 1 tablet by mouth 2 (two) times daily as needed (anxiety). fluticasone-salmeterol 250-50 MCG/DOSE QTY: 60 each Refills: 0 Commonly known as: ADVAIR Inhale 1 puff into the lungs 2 (two) times daily. levofloxacin 500 MG tablet QTY: 4 tablet Refills: 0 Commonly known as: LEVAQUIN Take 1 tablet by mouth Once a Day-Quinalones. levothyroxine 100 MCG tablet QTY: 30 tablet Refills: 11 Commonly known as: SYNTHROID, LEVOTHROID Take 1 tablet by mouth every morning before breakfast. methocarbamol 500 MG tablet QTY: 40 tablet Refills: 0 Commonly known as: ROBAXIN Take 1 tablet by mouth 4 (four) times daily. mirtazapine 7.5 MG tablet QTY: 30 tablet Refills: 0 Commonly known as: REMERON Take 1 tablet by mouth nightly. multivitamin & minerals w iron/FA 27-0.8 MG Tabs tablet Refills: 0 Take 1 tablet by mouth daily. ranitidine 150 MG tablet QTY: 30 tablet Refills: 11 Commonly known as: ZANTAC Take 1 tablet by mouth daily. ropinirole 2 MG tablet QTY: 90 tablet Refills: 11 Commonly known as: REQUIP Take 1 tablet by mouth 3 (three) times daily. traMADol 50 MG tablet QTY: 30 tablet Refills: 0 Commonly known as: ULTRAM Take 1 tablet by mouth every 6 (six) hours as needed for Pain. Where to get your medications Information on where to get these meds is not yet available. Ask your nurse or doctor. amoxicillin-clavulanate 875-125 MG per tablet aspirin 81 MG EC tablet benzocaine 7.5 % oral gel calcium-vitamin D 600-400 MG-UNIT per tablet clonazePAM 0.5 MG tablet fluticasone-salmeterol 250-50 MCG/DOSE levofloxacin 500 MG tablet levothyroxine 100 MCG tablet methocarbamol 500 MG tablet mirtazapine 7.5 MG tablet multivitamin & minerals w iron/FA 27-0.8 MG Tabs tablet ranitidine 150 MG tablet ropinirole 2 MG tablet traMADol 50 MG tablet Activity: activity as tolerated Diet: regular Wound Care: There are no Patient Instructions on file for this visit. Miquel Calhoun MD [address] [place] [id number] In 1 week Signed: FRAN BARNES 11/19/2013 7:21 PM documented in this en counter Medications at Time of Discharge + + [...] Progress Notes Conversion Transaction, Provider Unknown - 11/19/2013 8:30 PM PSTFormatting of this note m ight be different from the original. Nurse Progress Note by Ruby Chávez RN at 11/19/132029 Author: Ruby Chávez RN Service: (none) Author Type: Registered Nurse Filed: 11/19/132053 Date of Service: 11/19/132029 Status: Signed Infrastructure Engineer: Ruby Chávez RN (Registered Nurse) Pt currently on psychiatric hold; Transport here to take pt to [facility]. Pt complains of yesisca n; Given Ultram (See MAR) VSS; Afebrile; No SOB. Nurse to nurse given to [facility]. Pt dc'd by bebo. Ruby Chávez 11/19/2013 Fran Porter MD - 11/19/2013 3:24 PM PSTFormatting of this note might be different from the or iginal. Progress Notes by Fran Barnes MD at 11/19/131523 Author: Fran Barnes MD Service: Hospitalist Author Type: Physician Filed: 11/19/131535 Date of Service: 11/19/131523 Status: Addendum Infrastructure Engineer: Fran Barnes MD (Physician) Related Notes: Original Note by Fran Barnes MD (Physician) filed at 11/19/13 1535 [facility] Service: Hospitalist Progress Note Ronald Kowthrleighann 68 y.o. [id number] [facility] Day: LOS: 5 days Patient Summary: .A 68-year-old female with past medical history of depression with m ultiple suicide attempts in the past, history of COPD, which she attributes to paint inhalat ion, history of anxiety, restless leg syndrome, GERD, diabetes mellitus type 2, diet control led, hypothyroidism, who was admitted to [facility] on the November 14, when the patient was found to be unresponsive by EMS and thought to be secondary to Fle xeril overdose and alcohol intoxication as her alcohol level was more than 300. The patient was found to be hypertensive, hence she was intubated and brought to the [facility] where she was put on dopamine, norepinephrine, and her Tylenol level was found t o be 44 as well after which she was put on acetylcysteine protocol and CIWA and rapid drug s creen showed opiates as well as tricyclic antidepressant positive. The patient was transferr ed to medical floor on November 15, 2013, late afternoon. Subjective :The patient is still feeling depressed and having suicidal thoughts on/off . Sh e wants to go to rehab so that she can be more independent . She denied any chest pain, coug h,sob ,no dizziness, no lightheadedness. Scheduled Medications amoxicillin-clavulanate 1 tablet Oral Q12H [place] aspirin 81 mg Oral Daily with breakfast benzocaine Mouth/Throat TID calcium-vitamin D 1 tablet Oral BID WC cloNIDine 0.2 mg Oral Once docusate sodium 100 mg Oral BID Or docusate 100 mg Per OG Tube BID enoxaparin 40 mg Subcutaneous Q24H fluticasone-salmeterol 1 puff Inhalation 2 times daily folic acid (FOLVITE) IVPB 1 mg Intravenous Daily Or multivitamin & minerals w iron/FA 1 tablet Oral Daily influenza trivalent-split vaccine 0.5 mL Intramuscular Once Immunization lactulose 30 g Oral TID levofloxacin 500 mg Oral QDQ levothyroxine 100 mcg Oral QAM AC methocarbamol 500 mg Oral 4x Daily mirtazapine 7.5 mg Oral Nightly pneumococcal 23-valent vaccine 0.5 mL Intramuscular Once Immunization ranitidine 150 mg Oral Daily rOPINIRole 2 mg Oral TID rOPINIRole 4 mg Oral Nightly thiamine 100 mg Oral Q24H [DISCONTINUED] levalbuterol 1.25 mg Nebulization 4x daily [DISCONTINUED] rOPINIRole 2 mg Oral Nightly [DISCONTINUED] thiamine 100 mg Oral Q24H Continuous Infusions PRN Medications clonazePAM, guaifenesin-dextromethorphan, HYDROcodone-acetaminophen, levalbuterol, lip mois turizer, magnesium sulfate, magnesium sulfate, magnesium sulfate, nystatin, nystatin, ondans etron, ondansetron, oxyCODONE, petrolatum, phosphorus, polyethylene glycol, potassium chlori de, potassium chloride, potassium chloride, sodium glycerophosphate IVPB 15 mMol, sodium gly cerophosphate IVPB 30 mMol, traMADol, [DISCONTINUED] ondansetron [DISCONTINUED] ondansetron Allergy: Allergies Allergen Reactions Ambien (Zolpidem) Other (See Comments) Unknown Ativan (Lorazepam) Other (See Comments) Unknown Morphine Other (See Comments) Unknown. Per patient she takes hydrocodone at home, has taken tramadol without incident OBJECTIVE Vital Signs: BP 96/53 | Pulse 84 | Temp 98.9 F (37.2 C) (Oral) | Resp 18 | Wt 66.3 kg (146 lb 2.6 oz ) | SpO2 97% | ? No Temp: [97.8 F (36.6 C)-98.9 F (37.2 C)] 98.9 F (37.2 C) (11/19 1443) BP: (90-107)/(50-61) 96/53 mmHg (11/19 1443) Heart Rate: [81-98] 84 (11/19 1443) Resp: [16-18] 18 (11/19 1443) SpO2: [95 %-99 %] 97 % (11/19 1443) Weight: [66.3 kg (146 lb 2.6 oz)] 66.3 kg (146 lb 2.6 oz) (11/19 0357) I&O Detailed Table: Intake/Output Summary (Last 24 hours) at 11/19/13 1525 Last data filed at 11/19/13 1443 Gross per 24 hour Intake 1460 ml Output 2825 ml Net -1365 ml Hemodynamics Last 24hrs: Examination: Constitutional: Alert and oriented to person, place, and appears in NAD HEENT:multiple small aphthous ulcers Cardiovascular: Normal rate, regular rhythm, normal heart sounds and intact distal pulses. Exam reveals no gallop and no friction rub. No murmur heard. Pulmonary/Chest: Effort normal and decrease breath sounds at bases . No stridor. No respira tory distress. no wheezes. no rales. exhibits no tenderness. Abdominal: Soft. Bowel sounds are normal. exhibits no distension and no mass. There is no t enderness. There is no rebound and no guarding. Musculoskeletal: Normal range of motion.exhibits no tenderness. exhibits no edema. Neurological: Alert and oriented to person, place, and time. Has normal reflexes. display s normal reflexes. No cranial nerve deficit. Exhibits normal muscle tone.. Skin: Skin is warm and dry. No rash noted. No erythema. No pallor. Laboratory: Glucose: Results Procedure Component Value Units Date/Time C diff toxin by PCR (TAT 3 hr in house) [[id number]] Collected:11/19/13 0703 Specimen Information:Stool / Stool Updated:11/19/13806 Toxigenic C Difficile NEGATIVE 027 NAP1 BI 027 NAP1 BI PRESUMPTIVE NEGATIVE Magnesium [[id number]] Collected:11/19/13424 MAGNESIUM 2.2 mg/dL Updated:11/19/13806 Phosphorus [[id number]] Collected:11/19/13424 PHOSPHORUS 4.0 mg/dL Updated:11/19/13806 Basic metabolic panel [[id number]] (Abnormal) Collected:11/19/13424 Specimen Information:Blood Updated:11/19/13 0544 SODIUM 133 (L) mmol/L POTASSIUM 3.9 mmol/L CHLORIDE 101 mmol/L CO2 24 mmol/L ANION GAP AGAP 12 mmol/L GLUCOSE 108 (H) mg/dL BUN 12 mg/dL CREATININE 0.80 mg/dL BUN/CREAT 15 CALCIUM 9.2 mg/dL EGFR >60 mL/min/1.73m2 CBC w/auto diff (reflex to manual) [[id number]] (Abnormal) Collected:11/19/13 0425 Specimen Information:Blood Updated:11/19/13 0540 WBC 5.6 K/uL RBC 3.85 M/uL HGB 10.7 (L) g/dL HCT 32.8 (L) % MCV 85.2 fl MCH 27.8 pg MCHC 32.6 g/dL RDW SD 38.1 fl PLT 222 K/uL MPV 7.8 fl DIFF TYPE AUTOMATED NEUTROPHILS 67.1 % LYMPHOCYTES 21.3 % MONOCYTES 8.2 % EOSINOPHILS 3.0 % BASOPHILS 0.4 % NEUTROPHILS ABS 3.8 K/uL LYMPHOCYTES ABS 1.2 K/uL MONOCYTES ABS 0.5 K/uL EOSINOPHILS ABS 0.2 K/uL BASOPHILS ABS 0.0 K/uL MORPHOLOGY Fecal occult blood (in house) [[id number]] Collected:11/19/13 0146 Specimen Information:Stool / Stool Updated:11/19/13 0217 Fecal Occult Blood NEGATIVE Urine culture [[id number]] Collected:11/17/13 1013 Specimen Information:Urine / Urine, Catheter Updated:11/18/13 1710 Specimen Description CATHETERIZED URINE Specimen Description Result: Testing performed at [facility];[address] [place] [address] CULTURE NO GROWTH CULTURE Result: Testing performed at [facility], [address] [place] [address] REPORT STATUS 11/18/2013 FINAL Blood culture, 1 of 2 [[id number]] Collected:11/17/13 1042 Specimen Information:Blood / Blood Updated:11/18/13 1451 Specimen Description BLOOD Specimen Description Result: Testing performed at [facility];[address] [place] [address] SPECIAL REQUESTS Result: REPEAT TEST USING ALTERNATE ASSAYED CONTROL MATERIAL SPECIAL REQUESTS Result: Testing performed at [facility];[address] [place] [address] CULTURE NO GROWTH AT THIS TIME CULTURE Result: Testing performed at [facility], [address] [place] [address] REPORT STATUS PENDING Blood culture, 2 of 2 [[id number]] Collected:11/17/13 1050 Specimen Information:Blood / Blood Updated:11/18/13 1451 Specimen Description BLOOD Specimen Description Result: Testing performed at [facility];[address] [place] [address] SPECIAL REQUESTS PICC LINE SPECIAL REQUESTS Result: Testing performed at [facility];[address] [place] [address] CULTURE NO GROWTH AT THIS TIME CULTURE Result: Testing performed at [facility], [address] [place] [address] REPORT STATUS PENDING Sputum culture [[id number]] Collected:11/17/13 1153 Specimen Information:Sputum / Sputum Updated:11/18/13 1428 Specimen Description SPUTUM Specimen Description Result: Testing performed at [facility];[address] [place] [address] GRAM STAIN GREATER THAN 10 WBCS/LPF GRAM STAIN LESS THAN 10 SEC/LPF GRAM STAIN NO ORGANISMS SEEN GRAM STAIN Result: Testing performed at [facility], [address] [place] [address] CULTURE 1+ NORMAL UPPER RESPIRATORY CURTIS CULTURE Result: Testing performed at [facility], [address] [place] [address] REPORT STATUS PENDING Magnesium [[id number]] Collected:11/18/13 0600 Specimen Information:Blood Updated:11/18/13 1104 MAGNESIUM 2.1 mg/dL Phosphorus [[id number]] Collected:11/18/13 0600 Specimen Information:Blood Updated:11/18/13 1104 PHOSPHORUS 3.8 mg/dL Basic metabolic panel [[id number]] (Abnormal) Collected:11/18/13 0600 Specimen Information:Blood Updated:11/18/13 0716 SODIUM 135 mmol/L POTASSIUM 4.2 mmol/L CHLORIDE 104 mmol/L CO2 24 mmol/L ANION GAP AGAP 11 mmol/L GLUCOSE 110 (H) mg/dL BUN 11 mg/dL CREATININE 0.73 mg/dL BUN/CREAT 15 CALCIUM 9.0 mg/dL EGFR >60 mL/min/1.73m2 TSH [[id number]] Collected:11/18/13 0600 Specimen Information:Blood Updated:11/18/13 0713 TSH 4.28 uIU/mL CBC w/auto diff (reflex to manual) [[id number]] (Abnormal) Collected:11/18/13 0600 Specimen Information:Blood Updated:11/18/13 0647 WBC 8.7 K/uL RBC 3.77 M/uL HGB 10.8 (L) g/dL HCT 31.9 (L) % MCV 84.8 fl MCH 28.8 pg MCHC 33.9 g/dL RDW SD 37.6 fl PLT 183 K/uL MPV 7.9 fl DIFF TYPE AUTOMATED NEUTROPHILS 63.0 % LYMPHOCYTES 30.6 % MONOCYTES 4.7 % EOSINOPHILS 1.4 % BASOPHILS 0.3 % NEUTROPHILS ABS 5.5 K/uL LYMPHOCYTES ABS 2.7 K/uL MONOCYTES ABS 0.4 K/uL EOSINOPHILS ABS 0.1 K/uL BASOPHILS ABS 0.0 K/uL Urine culture [[id number]] Collected:11/16/13 0951 Specimen Information:Urine / Urine, Clean Catch Updated:11/17/13 1618 Specimen Description CLEAN CATCH URINE Specimen Description Result: Testing performed at [address] [address] CULTURE NO GROWTH CULTURE Result: Testing performed at [facility], [address] [place] [address] REPORT STATUS 11/17/2013 FINAL Magnesium [[id number]] (Abnormal) Collected:11/16/13 0407 Specimen Information:Blood Updated:11/17/13 1141 MAGNESIUM 1.6 (L) mg/dL Phosphorus [[id number]] (Abnormal) Collected:11/16/13 0407 Specimen Information:Blood Updated:11/17/13 1141 PHOSPHORUS 1.7 (L) mg/dL Iron panel [[id number]] (Abnormal) Collected:11/17/1357 Specimen Information:Blood Updated:11/17/1318 IRON 31 ug/dL TIBC 155 (L) ug/dL IRON % SAT 20 % Vitamin B12 [[id number]] Collected:11/17/1357 Specimen Information:Blood Updated:11/17/1311 VITAMIN B12 417 pg/mL Folate [[id number]] Collected:11/17/1357 Specimen Information:Blood Updated:11/17/13710 FOLATE 17.7 ng/mL Ferritin [[id number]] Collected:11/17/13556 Specimen Information:Blood Updated:11/17/13 0711 FERRITIN 140 ng/mL Comprehensive metabolic panel [[id number]] (Abnormal) Collected:11/17/13 0557 Specimen Information:Blood Updated:11/17/13 0710 SODIUM 134 (L) mmol/L POTASSIUM 3.8 mmol/L CHLORIDE 103 mmol/L CO2 28 mmol/L ANION GAP AGAP 7 mmol/L GLUCOSE 131 (H) mg/dL BUN 7 (L) mg/dL CREATININE 0.61 mg/dL BUN/CREAT 11 CALCIUM 8.5 mg/dL TOTAL PROTEIN 5.2 (L) g/dL Albumin 3.1 (L) g/dL GLOBULIN 2.1 g/dL A/G 1.5 TBIL 0.6 mg/dL ALK PHOS 48 U/L AST 19 U/L ALT 21 U/L EGFR >60 mL/min/1.73m2 CBC w/auto diff (reflex to manual) [[id number]] (Abnormal) Collected:11/17/1357 Specimen Information:Blood Updated:11/17/13 0641 WBC 7.8 K/uL RBC 3.51 (L) M/uL HGB 9.6 (L) g/dL HCT 29.5 (L) % MCV 84.3 fl MCH 27.5 pg MCHC 32.6 g/dL RDW SD 36.3 (L) fl PLT 151 K/uL MPV 7.9 fl DIFF TYPE AUTOMATED NEUTROPHILS 74.1 % LYMPHOCYTES 20.1 % MONOCYTES 4.1 % EOSINOPHILS 1.4 % BASOPHILS 0.3 % NEUTROPHILS ABS 5.8 K/uL LYMPHOCYTES ABS 1.6 K/uL MONOCYTES ABS 0.3 K/uL EOSINOPHILS ABS 0.1 K/uL BASOPHILS ABS 0.0 K/uL MORPHOLOGY CBC: Lab Results Component Value Date WBC 5.6 11/19/2013 RBC 3.85 11/19/2013 HGB 10.7* 11/19/2013 HCT 32.8* 11/19/2013 MCV 85.2 11/19/2013 MCH 27.8 11/19/2013 MCHC 32.6 11/19/2013 RDW 38.1 11/19/2013 PLT 222 11/19/2013 MPV 7.8 11/19/2013 DIFFTYPE AUTOMATED 11/19/2013 CMP: Lab Results Component Value Date NA 133* 11/19/2013 K 3.9 11/19/2013 CL 101 11/19/2013 CO2 24 11/19/2013 ANIONGAP 12 11/19/2013 GLUF 108* 11/19/2013 BUN 12 11/19/2013 CREATININE 0.80 11/19/2013 BCR 15 11/19/2013 CA 9.2 11/19/2013 PROT 5.2* 11/17/2013 ALB 3.1* 11/17/2013 GLOB 2.1 11/17/2013 BILITOT 0.6 11/17/2013 ALP 48 11/17/2013 AST 19 11/17/2013 ALT 21 11/17/2013 EGFR >60 11/19/2013 Magnesium: Lab Results Component Value Date MG 2.2 11/19/2013 Phosphorus: Lab Results Component Value Date PHOS 4.0 11/19/2013 PT/INR: Lab Results Component Value Date INR 1.0 11/14/2013 Last 3 Troponin: Lab Results Component Value Date TROPONINI 0.208* 11/15/2013 TROPONINI 0.325* 11/15/2013 TROPONINI 0.647* 11/15/2013 ABG: Lab Results Component Value Date POCPH 7.209* 11/15/2013 POCPCO 21* 11/15/2013 POCPO2 139* 11/15/2013 POCHCO 9* 11/15/2013 POCTCO2 9* 11/15/2013 POCBD 19* 11/15/2013 POCSO2 99* 11/15/2013 POCCMT Tidal Volume = 500 11/15/2013 Ct Head Without Contrast 11/14/2013 RONALD WAYNEFAWTHROP [address] HEAD WO CONTRAST 11/14/2013 8: 58 PM INDICATION: Unresponsive. Intubated. COMPARISON: None TECHNIQUE: CT scan of the hea d without contrast. 5-mm axial noncontrast images were acquired from the foramen magnum thr ough the cranial vertex. FINDINGS: An ovoid low density focus in the right lentiform nucleu s measures 10 mm greatest dimension, probably a lacunar infarct, versus less likely a dilate d perivascular space. There is no evidence of acute infarct. Mild supratentorial white matte r disease is noted, likely white matter ischemic gliosis. No intracranial mass or hemorrhage is found. Mild probable age-related volume loss is noted with associated ventricular promin ence, without hydrocephalus. No orbital abnormalities are found. The paranasal sinuses are c lear. No mastoid fluid is found. Degenerative changes of the right temporomandibular joint a re noted. No worrisome lytic or blastic bony lesions are found. 11/14/2013 1. No acute intracranial pathology. 2. Hypodense focus in the right lentiform was, probably old lacunar infarct. 3. Senescent changes, as above. X-ray Chest 1 View 11/16/2013 RONALD DOTYFAWTHROP XR CHEST 1 VIEW 11/16/2013 6:21 AM History: 68 years. F emale. Acute respiratory failure secondary to drug overdose. Followup for pulmonary infiltr ates. Technique: AP portable upright technique was performed at 0519 hours. Comparison: Findings: Heterogeneous, moderate alveolar infiltrates are visualized in the perihil ar lung valenzuela bilaterally, somewhat greater on the right than the left, relatively unchange d as compared with 11/15/13. The lung bases are clear. No pleural effusion noted. The inspir atory effort is moderate. The patient is mildly rotated to the right. The cardiac volume is normal. A left jugular central venous catheters in good position with its tip in the superi or vena cava. The endotracheal tube is been removed. 11/16/2013 1. Persistent mild to moderate alveolar infiltrates suggesting mild alveolar pu lmonary edema, unchanged. 2. Endotracheal extubation. X-ray Chest 1 View 11/15/2013 RONALD DOTYFAWTHROP XR CHEST 1 VIEW 11/15/2013 6:08 AM History: 68 years. F emale. Acute respiratory failure secondary to drug overdose. Followup exam. Technique: AP portable upright technique was performed at 0524 hours. Comparison: 11/14/13 Findings: The inspiratory effort is moderate. Moderate peribronchial infiltrates are visualized in the ce ntral lung valenzuela bilaterally, upper and lower zones, unchanged as compared with 11/14/13. T he infiltrates are nonspecific, suggesting mild alveolar pulmonary edema, or aspiration pneu monia. The lung bases are clear. No pleural effusion. The cardiac volume is normal. The pul monary logan and mediastinal contours are normal. The thoracic aorta is normal, without dilat ation or calcification. The tip of the endotracheal tube is at T5. A left jugular central v enous catheters in good position with its tip in the superior vena cava. A nasogastric tube is positioned in the stomach. 11/15/2013 1. Persistent mild bilateral peribronchial and alveolar infiltrates suggesting pulmonary edema or aspiration, unchanged as compared with 11/14/13. 2. Satisfactory positio n of life-support catheters. 7: 40 AM X-ray Chest Ap Only 11/14/2013 RONALD WASHBURNHRLEIGHANN XR CHEST 1 VIEW 11/14/2013 11:33 PM HISTORY: Assessment f or life support lines and tubes. TECHNIQUE: AP chest film 2344 hrs. COMPARISON: AP chest f ilm 11/14/13 at 2030 hrs. FINDINGS: The well-positioned endotracheal tube and nasogastric tu be are unchanged. The right internal jugular central venous catheter has been advanced, curr ently with the tip at the atriocaval junction Patchy bilateral airspace disease is again see n, relatively unchanged, most significant in the right midlung field. No pneumothorax or ple ural effusion is found. The cardiac silhouette is normal. Mild unchanged scoliosis is again found. Cholecystectomy clips are again seen. 11/14/2013 1. Other than advancement of the central venous catheter, currently with the ti p at the atriocaval junction, no significant interval change. Xr Chest 1 View 11/14/2013 Also seen is a left internal jugular approach central venous catheter, the tip overlying the region of the mid to distal superior vena cava. 11/14/2013 RONALD CASTAÑEDA XR CHEST 1 VIEW 11/14/2013 8:56 PM HISTORY: Respiratory f ailure. TECHNIQUE: AP chest film. COMPARISON: None. FINDINGS: A well-positioned endotrach eal tube is noted. Patchy airspace disease is noted bilaterally, most significant in the rig ht midlung field. No pneumothorax or pleural effusion is found. The cardiac silhouette is no rmal. A nasogastric tube is present, with the tip extending to the gastric body, and probabl y off of the film. Moderate gastric distention is noted. An ovoid artifact likely overlies t he stomach. Mild convex right curvature of the thoracic spine is found. Mild convex left cur vature of the upper lumbar spine is seen. No worrisome lytic or blastic bony lesions are obs erved. Cholecystectomy clips are observed. 11/14/2013 1. Status post intubation and placement of nasogastric tube, as above. 2. Non specific patchy bilateral airspace disease, potentially pneumonia or pulmonary alveolar lars a. Echo Cardiac Adult Limited 11/15/2013 Patient Name: RONALD CASTAÑEDA Date of : 1945 Performing Physician: Finesse Cortez MD INDICATIONS altered mental status, copd CONCLUSIONS ------- ---- 1. This was a technically difficult study with suboptimal views. 2. Overall left ventri cular systolic function is normal with, an EF between 60 - 65 %. 3. Mild mitral annular calc ification present. FINDINGS -------- ECG rhythm: Resting tachycardia (HR>100bpm). Study: A limited 2-dimensional transthoracic echocardiogram with limited spectral and color flow Dopp ler was performed. Study: This was a technically difficult study with suboptimal views. Study: Patient in pain not able to hold still for echo. Left Ventricle: Overall left ventric ular systolic function is normal with, an EF between 60 - 65 %. Left Ventricle: The left ve ntricle cavity size is normal. Left Ventricle: Left ventricular wall thickness is normal. Left Ventricle: Cannot assess diastolic function due to tachycardia. Left Atrium: The left a trial size is normal. Right Atrium: The right atrial size is normal Right Atrium: , and the RA measures 3.7cm. Aortic Valve: The aortic valve was not well visualized. Aortic Valve: Th ere is no evidence of aortic regurgitation. Aortic Valve: There is no evidence of aortic st enosis. Mitral Valve: Mild mitral annular calcification present. Tricuspid Valve: The tricus pid valve was not well visualized. Tricuspid Valve: Trace tricuspid regurgitation present. Tricuspid Valve: Right ventricular systolic pressure (pulmonary artery systolic pressure) i s normal at < 35 mmHg. Pulmonic Valve: The pulmonic valve was not well visualized. Pericardi um: There is no pericardial effusion. IVC/Hepatic Veins: The IVC is normal size (1.5-2.5cm) and collapses <50% with sniff, consistent with central venous pressures of 10-15mmHg. MEASU REMENTS LA Major: 3.64 cm EDV(Teich): 78.10 ml IVSd: 0.86 cm LVIDd: 4. 18 cm LVPWd: 0.76 cm LVOT Diam: 1.94 cm %FS: 36.37 % EF(Teich): 66.49 % ESV(Teich): 26.16 ml IVSs: 1.14 cm LVIDs: 2.66 cm LVPWs: 1.14 cm SV(Teich): 51.93 ml RA Major: 3.67 cm IVC diameter: 2.38 cm IVC collapse: 1.58 cm IVC % collapse: 30.95 % HR: 1 31.95 BPM AV maxP.31 mmHg AV meanP.05 mmHg AV Vmax: 1.44 m/s AV Vmean: 1.08 m/s AV VTI: 23.26 cm SHABNAM Vmax: 3.14 cm2 SHABNAM (VTI): 2.90 cm2 LVCI Dopp: 4.57 l/minm2 LVCO Dopp: 7.95 l/min HR: 117.60 BPM LVOT maxP.36 mmHg LVOT meanP.28 mmHg LV SI Dopp: 38.87 ml/m2 LVSV Dopp: 67.64 ml LVOT Vmax: 1.52 m/s LVOT Vmean: 1.10 m/s LV OT VTI: 22.79 cm MV A Mark: 1.31 m/s MV DecT: 74.24 ms MV E Mark: 1.08 m/s MV E/A Rati o: 0.82 Septal e': 0.16 m/s Septal E/e': 6.57 Lateral e': 0.10 m/s Lateral E/e': 10.66 RAP: 10 mmHg RVSP: 33.88 mmHg TR maxP.88 mmHg TR Vmax: 2.44 m/s Sonogr apher: AB Authenticated by: Finesse Cortez MD Report Date/Time: 11-15-2013 18:08:31 11/15/2013 1. This was a technically difficult study with suboptimal views. 2. Overall left ventricular systolic function is normal with, an EF between 60 - 65 %. 3. Mild mitral annul ar calcification present. PROBLEM LIST Principal Problem: *Overdose of muscle relaxant Active Problems: Acute respiratory failure Metabolic acidosis Coma Alcohol intoxication Hypotension, unspecified Anemia, unspecified Hypothyroid Low back ache COPD (chronic obstructive pulmonary disease) Aspiration pneumonia Generalized anxiety disorder Impaired mobility and ADLs Gait difficulty ASSESSMENT & PLAN 1. Pneumonia which is likely secondary to aspiration doing better Plan: continue the patient on Levaquin and Augmentin day /, Robitussin 10 mL every 4 amol rs p.r.n. 2. Chronic lower back pain. Well controlled on norco and Robaxin p.r.n. 3. History of major depression with multiple suicidal attempts. Plan: consulted and case DW him who recommended patient can be DC in rehab faci lity and she needs FU with psychologist which helps the patient otherwise no new medication initiated as nothing works in the past. 4. Generalized weakness, likely secondary to deconditioning and PT recommended SNF, IPR con sulted and awaiting for safe DC plan. SW consulted to work on it and can be DC in rehab facility vs IPR once accepted. 5. Apthous ulcers :will start on on lidocaine gel tid. 6. Anxiety . Continue on clonazepam 0.5 mg t.i.d. p.r.n. 7. Hypothyroidism. TSH WNL and continue on levothyroxine. 8. Gastroesophageal reflux disease. on ranitidine 150 mg daily. 9. Restless leg syndrome. On Requip 10. Anemia. The patient's complete iron panel and B12 are within normal limits and stools g uaic -ve. 11. DVT prophylaxis. Will start on Lovenox and stockings . 12,COPD stable on advair and xopenox nebs prn FRAN BARNES MD 11/19/2013 onversion Transactio n, Provider Unknown - 11/19/2013 2:54 PM PST Case Management by ANGELO Lujan at 11/19/13 7844 Author: ANGELO Lujan Service: (none) Author Type: Therapeutic Recreation Assistant Filed: 11/19/13 3951 Date of Service: 11/19/13 3304 Status: Signed Infrastructure Engineer: ANGELO Lujan (Therapeutic Recreation Assistant) CM contacted Crisis Response Unit to inform [facility] that pt is now medically clear for MH eval uation. A DMHP will see pt in the hospital today for eval. CM spoke with IPR MD - he would like to reevaluate pt tomorrow to determine appropriateness for IPR. ANGELO Lujan Fill Technician onver hiren Transaction, Provider Unknown - 11/19/2013 12:40 PM PST Progress Notes by Emi Donaldson PT at 11/19/13 1240 Author: Emi Donaldson PT Service: (none) Author Type: Physical Therapist Filed: 11/19/13 1313 Date of Service: 11/19/13 1240 Status: Signed Infrastructure Engineer: Emi Donaldson PT (Physical Therapist) 11/19/13 1240 PT Last Visit PT Received On 11/19/13 Reason for Treatment (weakness) Requires PT Follow Up Yes Follow up PT Only? No Assistance Required 1 person Other Comments Comments Pt in bed agreeable to PT. Significant improvement in mobility, able to amb 30ft w/Alan and get to EOB SBA. Needs continued PT for progressive mobility. Pt would benefit f rom SNF, has 31ste to home. Limited by cognitive state, crying end of session re: situation . "I need to get home I have bills to take care of and I have a bladder appointment at [facility] I need to take care of otherwise it will be another 2mos". Pt to have psych f/u. Unsafe t o return home alone. Cognition Overall Cognitive Status WFL Orientation Level Oriented Bed Mobility Supine to Sit Standby assist Scooting Standby assist Transfers Sit to/from Stand Minimal assist (steadying/contact guard) Mobility Weight Bearing Status WBAT RLE;WBAT LLE Ambulation Assistance Minimal assist Maximal Ambulation Distance (feet) 30 Total Ambulation Distance (feet) 30 Distance limited by? Patient's ability Pattern Alternating;Decreased lona;Right swing foot doesn't pass stance foot;Left swing foot doesn't pass stance foot Assistive Device Walker front wheeled Balance Balance Yes Static Sitting Balance Static Sitting-Balance Support Right upper extremity support;Left upper extremity support;F eet supported Static Sitting-Level of Assistance Modified independent Modalities Other Therapy ed on importance of upright and encouraged to stay in chair, ed on mobility t echniques, ad use, symptom monitoring and poc Activity Tolerance Activity Tolerance Patient limited by fatigue Nurse Made Aware LUISA Mijares notified of pt mobility status and recommendations Safety Devices Safety Devices in Place Yes Type of Devices 1:1 sitter maintained Plan Treatment/Interventions Continue per Primary PT POC Progress Slow progress, decreased activity tolerance Recommendation Recommendations SNF;Other (comment) (or other psych facility d/t suicidal attempt) Equipment Recommended Walker front wheeled onver hiren Transaction, Provider Unknown - 11/19/2013 10:20 AM PST Progress Notes by Emi Donaldson PT at 11/19/13 1020 Author: Emi Donaldson PT Service: (none) Author Type: Physical Therapist Filed: 11/19/13 1052 Date of Service: 11/19/13 1020 Status: Signed Infrastructure Engineer: Emi Donaldson PT (Physical Therapist) 11/19/13 1020 PT Last Visit PT Received On 11/19/13 Requires PT Follow Up Unavailable (getting bed bath, f/u later today for PT as schedule allows) onver hiren Transaction, Provider Unknown - 11/19/2013 4:29 AM PST Nurse Progress Note by Kala Peña RN at 11/19/13 7499 Author: Kala Peña RN Service: (none) Author Type: Registered Nurse Filed: 11/19/13 2103 Date of Service: 11/19/13 0429 Status: Signed Infrastructure Engineer: Kala Peña, RN (Registered Nurse) Pt slept on and off through night. Medicated for pain and anxiety. Pt given Miralax per prn order and pt reports of constipation unrelieved by lactulose. Large BM resulting. Sitter re manjit at bedside. Will continue to monitor. Fran oPrter MD - 11/18/2013 6:08 PM PSTFormatting of this note might be different from the or iginal. Progress Notes by Fran Barnes MD at 11/18/131807 Author: Fran Barnes MD Service: Hospitalist Author Type: Physician Filed: 11/18/131826 Date of Service: 11/18/131807 Status: Signed Infrastructure Engineer: Fran Barnes MD (Physician) [facility] Hospital Service: Hospitalist Progress Note Ronald Kowtjanene 68 y.o. [phone] [id number] female [facility] Day: LOS: 4 days Patient Summary: .A 68-year-old female with past medical history of depression with m ultiple suicide attempts in the past, history of COPD, which she attributes to paint inhalat ion, history of anxiety, restless leg syndrome, GERD, diabetes mellitus type 2, diet control led, hypothyroidism, who was admitted to [facility] on the November 14, when the patient was found to be unresponsive by EMS and thought to be secondary to Fle xeril overdose and alcohol intoxication as her alcohol level was more than 300. The patient was found to be hypertensive, hence she was intubated and brought to the [facility] where she was put on dopamine, norepinephrine, and her Tylenol level was found t o be 44 as well after which she was put on acetylcysteine protocol and CIWA and rapid drug s creen showed opiates as well as tricyclic antidepressant positive. The patient was transferr ed to medical floor on November 15, 2013, late afternoon. Subjective :The patient is c/o low back pain asking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 that even if God forgives, she can't forgive herself. Her spiritual distress is acute in the following areas: loss of connectedness with her children, especially her youngest son; loss of meaning and purpose, and the absence of a sense of forgiveness. This places her in a place of abject despair and hopelessness. When asked, "Why do you think you are still alive after so long and so many attempts", she willi ngly began processing how meaning and purpose might reappear, and how relationships might be healed. Most of our attention focussed on questions of self-forgiveness. She remained open to processing her spiritual pain, welcoming a prayer for healing in all areas of her life, e specially in her memories of past wounding./pain/failures. She will welcome follow up. ELOISA Damico onver hiren Transaction, Provider Unknown - 11/18/2013 12:08 PM PST Progress Notes by Donita Hunter RN at 11/18/13 1208 Author: Donita Hunter RN Service: (none) Author Type: Registered Nurse Filed: 11/18/13 1213 Date of Service: 11/18/13 1208 Status: Signed Infrastructure Engineer: Donita Hunter RN (Registered Nurse) Sulfur Chloride Operator called to be with patient,, comptometrist at bedside. Pt indicating desire to harm her self. Pt states that she is hopeless and that she wants to . All items that could be used for self harm removed. Will continue to monitor closely.DONITA HUNTER RN onver hiren Transaction, Provider Unknown - 11/18/2013 6:13 AM PST Nurse Progress Note by Kala Peña RN at 11/18/13 0613 Author: Kala Peña RN Service: (none) Author Type: Registered Nurse Filed: 11/18/13 0615 Date of Service: 11/18/13612 Status: Signed Infrastructure Engineer: Kala Peña RN (Registered Nurse) Pt slept on and off through night. Medicated once for pain. Increased in alertness as night progressed. VSS. Sitter at bedside. Pt states that she continues to feel hopeless. Will con tinue to monitor. onver hiren Transaction, Provider Unknown - 11/17/2013 6:24 PM PST Progress Notes by Dick De Santiago RN at 11/17/131823 Author: Dick De Santiago RN Service: (none) Author Type: Registered Nurse Filed: 11/17/135 Date of Service: 11/17/131823 Status: Signed Infrastructure Engineer: Dick De Santiago RN (Registered Nurse) Pt has been in and out of tearful expression most of the day. As her cognition came back, she informed me that she takes requip regularly for her Parkinsons. Dr Barnes was notified a nd we started requip 2mg per dose t.i.d. Pt cannot remember how she got here nor does she r emember any phone numbers for family contact. Dick De Santiago 6:35 PM 11/17/2013 Sharif Bui Chaplain - 11/17/2013 1:41 PM PST Progress Notes by Sharif Romero at 11/17/13 1341 Author: Sharif Romero Service: (none) Author Type: Filed: 11/17/13 1350 Date of Service: 11/17/13 1341 Status: Signed Infrastructure Engineer: Sharif Romero (Sulfur Chloride Operator) I visited with Pt to assess her emotional/spiritual needs, wishes and choices. Pt states delmy quiroz has multiple suicide attempts due to emotional pain. She has been on medications for the p ast few years without success. She feels unwanted and useless. I asked where is the emotiona l coming from are there unresolved issues that are too painful to let go. She states she can 't think of any she feels she and those around her would be better off if she wasn't here. S he requested a prayer for emotional healing and support. We prayed together as she requested . Chaplain Robin onversion Baum saction, Provider Unknown - 11/17/2013 11:33 AM PSTFormatting of this note might be differen t from the original. Progress Notes by Emi Donaldson PT at 11/17/13 1133 Author: Emi Donaldson PT Service: (none) Author Type: Physical Therapist Filed: 11/17/13 1320 Date of Service: 11/17/13 113 Status: Signed Infrastructure Engineer: Emi Donaldson PT (Physical Therapist) 11/17/13 1133 PT Last Visit PT Received On 11/17/13 Reason for Treatment Other (comment) (weakness, admit for OD on muscle relaxant/shock) Requires PT Follow Up Awaiting tx order Follow up PT Only? Yes PT Eval/Reassessment Date 11/17/13 Assistance Required 1 person;2 person (2pA for attempt at gait) Precautions Spinal Precautions Lumbar Other Precautions fall precautions, skin integrity Other Comments Comments Pt in bed, reluctant but agreeable to PT. Sitter present for session. Pt limited by significant weakness/deconditioning, drop in BP, and back pn. Needs cont PT for strengt h and mobility training. Cognition Overall Cognitive Status WFL Orientation Level Oriented Bed Mobility Supine to Sit Max assist (BLEs OOB & trunk to upright) Sit to Supine Mod assist (BLEs into bed or trunk to lower) Scooting Maximal assist Transfers Sit to/from Stand FLORINA Mobility Ambulation Assistance FLORINA Balance Balance Yes Static Sitting Balance Static Sitting-Balance Support Right upper extremity support;Left upper extremity support;F eet supported Static Sitting-Level of Assistance Minimal assist;Moderate assist Supine Supine-Exercise Type Ankle pumps;Heel slides Modalities Modalities Other therapy Other Therapy ed on importance of mobility and upright for skin integrity and lung health, poc and recommendations Activity Tolerance Activity Tolerance Patient limited by fatigue;Patient limited by pain Nurse Made Aware LUISA Jennings notified of pt mobility status and recommendations Safety Devices Safety Devices in Place Yes Type of Devices 1:1 sitter maintained Plan Treatment/Interventions Balance training;Bed mobility training;Gait training;Monitor O2 sat s;Monitor vital signs;Review precautions;Therapeutic exercise;Transfer training PT Frequency 5-7x/wk;Once per day Care Duration (# of days) 7 # of days Recommendation Recommendations SNF Equipment Recommended (pending improvement) Pre/peak/post Position BP HR O2 sats L/min supine 95/60 Supine 45deg 92/52 sitting 82/47 Return to supine, HOB 20deg 104/55 70-80 throughout session onver hiren Transaction, Provider Unknown - 11/17/2013 11:33 AM PST Progress Notes by Emi Donaldson PT at 11/17/13 8865 Author: Emi Donaldson PT Service: (none) Author Type: Physical Therapist Filed: 11/17/13 3134 Date of Service: 11/17/13 1133 Status: Signed Infrastructure Engineer: Emi Donaldson PT (Physical Therapist) 11/17/13 1133 PT Last Visit PT Received On 11/17/13 Reason for Treatment Other (comment) (weakness, admit for OD on muscle relaxant/shock) Requires PT Follow Up Awaiting tx order PT Eval/Reassessment Date 11/17/13 Precautions Spinal Precautions Lumbar Other Precautions fall precautions, skin integrity Plan Treatment/Interventions Balance training;Bed mobility training;Gait training;Monitor O2 sat s;Monitor vital signs;Review precautions;Therapeutic exercise;Transfer training PT Frequency 5-7x/wk;Once per day Care Duration (# of days) 7 # of days Home Environment Type of Home Apartment upper level Home Exterior Layout Flights two (31 steps to enter per report) Home Interior Layout Lives on main level with bedroom/bathroom Bathroom Shower/Tub Tub/shower unit Bathroom Toilet Standard Bathroom Accessibility Not accessible Home Equipment Walker front wheeled;Cane single point Additional Comments Lives alone in upper level apt. IADL's and mobility, primarily in home , doesn't go out much unless legs feeling better. States "sometimes I have to crawl up the stairs". Denies caregiver or home health. Reports several falls "I fall a lot, I'm trying real hard to get another apartment". Recommendation Recommendations SNF Equipment Recommended (pending improvement, lift reconciler c/s) Prior Function Level of [place] Modified independent with functional mobility;Modified independent wi th ADLs Lives With Alone Receives Help From (notes minimal social support "Mila worn out everybody") ADL Assistance Independent Employment Retired for disability RLE Assessment RLE Assessment (functional weakness) LLE Assessment LLE Assessment (c/o pn sesar w/knee flex/DF, ROM WNL w/tactile cuing) Cognition Overall Cognitive Status WFL Orientation Level Oriented Sensation Light Touch (c/o intermittent numbness in L foot) Vision-Basic Assessment Current Vision Reading glasses Assessment of Patient Status Assessment of Patient Status Decreased functional mobility;Decreased endurance Prognosis Limited by multiple medical complications Safety Devices Safety Devices in Place Yes Type of Devices 1:1 sitter maintained Fran Porter MD - 11/17/2013 10:02 AM PSTFormatting of this note might be different from the or iginal. Progress Notes by Fran Barnes MD at 11/17/13 1002 Author: Fran Barnes MD Service: Hospitalist Author Type: Physician Filed: 11/17/13 1746 Date of Service: 11/17/13 1002 Status: Signed Infrastructure Engineer: Fran Barnes MD (Physician) Related Notes: Original Note by Fran Barnes MD (Physician) filed at 11/17/13 1016 [facility] Service: Hospitalist Progress Note Ronald Kowthrleighann 68 y.o. [phone] [id number] female [facility] Day: LOS: 3 days Patient Summary: .A 68-year-old female with past medical history of depression with m ultiple suicide attempts in the past, history of COPD, which she attributes to paint inhalat ion, history of anxiety, restless leg syndrome, GERD, diabetes mellitus type 2, diet control led, hypothyroidism, who was admitted to [facility] on the November 14 014, when the patient was found to be unresponsive by EMS and thought to be secondary to Fle xeril overdose and alcohol intoxication as her alcohol level was more than 300. The patient was found to be hypertensive, hence she was intubated and brought to the [facility] where she was put on dopamine, norepinephrine, and her Tylenol level was found t o be 44 as well after which she was put on acetylcysteine protocol and CIWA and rapid drug s creen showed opiates as well as tricyclic antidepressant positive. The patient was transferr ed to medical floor on November 15, 2013, late afternoon. The patient is still feeling depressed, crying, saying she does not want to live. The patie nt is complaining of productive cough bringing up greenish, yellowish-colored sputum, some s hortness of breath, though she is not in any respiratory distress. The patient is feeling ge neralized weakness and complaining of lower back pain. The patient's mental status is much b ilene today. She denied any chest pain, no dizziness, no lightheadedness, following commands . I received her records from [facility]. The patient's 2 sons live in [place], and she does not know the phone numbers or any contact information. Scheduled Medications [] acetylcysteine 600 mg Oral BID amoxicillin-clavulanate 1 tablet Oral Q12H WESLEY aspirin 81 mg Oral Daily with breakfast cloNIDine 0.2 mg Oral TID Followed by cloNIDine 0.2 mg Oral BID Followed by cloNIDine 0.2 mg Oral Once docusate sodium 100 mg Oral BID Or docusate 100 mg Per OG Tube BID fluticasone-salmeterol 1 puff Inhalation 2 times daily folic acid (FOLVITE) IVPB 1 mg Intravenous Daily Or multivitamin & minerals w iron/FA 1 tablet Oral Daily influenza trivalent-split vaccine 0.5 mL Intramuscular Once Immunization lactulose 30 g Oral Daily levalbuterol 1.25 mg Nebulization 4x daily levofloxacin 500 mg Oral QDQ methocarbamol 500 mg Oral 4x Daily pneumococcal 23-valent vaccine 0.5 mL Intramuscular Once Immunization thiamine 100 mg Oral Q24H thiamine 100 mg Oral Q24H [DISCONTINUED] folic acid (FOLVITE) IVPB 1 mg Intravenous Daily [DISCONTINUED] omeprazole 20 mg Oral QAM AC [DISCONTINUED] pantoprazole 40 mg Intravenous QAM AC [DISCONTINUED] multivitamin & minerals w iron/FA 1 tablet Oral Daily [DISCONTINUED] thiamine (VITAMIN B1) IVPB 100 mg Intravenous Q24H Continuous Infusions [DISCONTINUED] norepinephrine in D5W 64 mcg/mL Stopped (11/15/13 0300) [DISCONTINUED] sodium bicarbonate drip 100 mEq/1000 mL 110 mL/hr at 11/17/13 0056 PRN Medications guaifenesin-dextromethorphan, lip moisturizer, magnesium sulfate, magnesium sulfate, magnes ium sulfate, nystatin, nystatin, ondansetron, ondansetron, ondansetron, ondansetron, oxyCODO NE, petrolatum, phosphorus, polyethylene glycol, potassium chloride, potassium chloride, pot assium chloride, sodium glycerophosphate IVPB 15 mMol, sodium glycerophosphate IVPB 30 mMol Allergy: Allergies Allergen Reactions Ambien (Zolpidem) Other (See Comments) Unknown Ativan (Lorazepam) Other (See Comments) Unknown Morphine Other (See Comments) unknown OBJECTIVE Vital Signs: BP 100/56 | Pulse 78 | Temp 98.2 F (36.8 C) (Axillary) | Resp 18 | Wt 69.491 kg (153 lb 3.2 oz) | SpO2 96% | ? No Temp: [97.8 F (36.6 C)-102.2 F (39 C)] 98.2 F (36.8 C) (11/17 741) BP: (100-146)/(56-73) 100/56 mmHg (11/17 741) Heart Rate: [78-101] 78 (11/17 741) Resp: [18-22] 18 (11/17 741) SpO2: [93 %-98 %] 96 % (11/17 741) Weight: [69.491 kg (153 lb 3.2 oz)] 69.491 kg (153 lb 3.2 oz) (11/17 337) I&O Detailed Table: Intake/Output Summary (Last 24 hours) at 11/17/13 1002 Last data filed at 11/17/13 0557 Gross per 24 hour Intake 2620 ml Output 5400 ml Net -2780 ml Hemodynamics Last 24hrs: Examination: Constitutional: Alert and oriented to person, place, and appears depressed and crying Cardiovascular: Normal rate, regular rhythm, normal heart sounds and intact distal pulses. Exam reveals no gallop and no friction rub. No murmur heard. Pulmonary/Chest: Effort normal and decrease breath sounds at bases . No stridor. No respira tory distress. no wheezes. no rales. exhibits no tenderness. Abdominal: Soft. Bowel sounds are normal. exhibits no distension and no mass. There is no t enderness. There is no rebound and no guarding. Musculoskeletal: Normal range of motion.exhibits no tenderness. exhibits no edema. Neurological: Alert and oriented to person, place, and time. Has normal reflexes. display s normal reflexes. No cranial nerve deficit. Exhibits normal muscle tone.. Skin: Skin is warm and dry. No rash noted. No erythema. No pallor. Psychiatric: low mood,depressed and crying Laboratory: Glucose: Results Procedure Component Value Units Date/Time Iron panel [[id number]] (Abnormal) Collected:11/17/13556 Specimen Information:Blood Updated:11/17/13717 IRON 31 ug/dL TIBC 155 (L) ug/dL IRON % SAT 20 % Vitamin B12 [[id number]] Collected:11/17/13556 Specimen Information:Blood Updated:11/17/13710 VITAMIN B12 417 pg/mL Folate [[id number]] Collected:11/17/13556 Specimen Information:Blood Updated:11/17/13710 FOLATE 17.7 ng/mL Ferritin [[id number]] Collected:11/17/13556 Specimen Information:Blood Updated:11/17/13710 FERRITIN 140 ng/mL Comprehensive metabolic panel [[id number]] (Abnormal) Collected:11/17/13556 Specimen Information:Blood Updated:11/17/13709 SODIUM 134 (L) mmol/L POTASSIUM 3.8 mmol/L CHLORIDE 103 mmol/L CO2 28 mmol/L ANION GAP AGAP 7 mmol/L GLUCOSE 131 (H) mg/dL BUN 7 (L) mg/dL CREATININE 0.61 mg/dL BUN/CREAT 11 CALCIUM 8.5 mg/dL TOTAL PROTEIN 5.2 (L) g/dL Albumin 3.1 (L) g/dL GLOBULIN 2.1 g/dL A/G 1.5 TBIL 0.6 mg/dL ALK PHOS 48 U/L AST 19 U/L ALT 21 U/L EGFR >60 mL/min/1.73m2 CBC w/auto diff (reflex to manual) [[id number]] (Abnormal) Collected:11/17/13556 Specimen Information:Blood Updated:11/17/13 06 WBC 7.8 K/uL RBC 3.51 (L) M/uL HGB 9.6 (L) g/dL HCT 29.5 (L) % MCV 84.3 fl MCH 27.5 pg MCHC 32.6 g/dL RDW SD 36.3 (L) fl PLT 151 K/uL MPV 7.9 fl DIFF TYPE AUTOMATED NEUTROPHILS 74.1 % LYMPHOCYTES 20.1 % MONOCYTES 4.1 % EOSINOPHILS 1.4 % BASOPHILS 0.3 % NEUTROPHILS ABS 5.8 K/uL LYMPHOCYTES ABS 1.6 K/uL MONOCYTES ABS 0.3 K/uL EOSINOPHILS ABS 0.1 K/uL BASOPHILS ABS 0.0 K/uL MORPHOLOGY Urine culture [[id number]] Collected:11/16/13 0951 Specimen Information:Urine / Urine, Clean Catch Updated:11/16/13 1144 Potassium [[id number]] Collected:11/16/13 1112 Specimen Information:Blood Updated:11/16/13 1133 POTASSIUM 3.6 mmol/L Sputum culture [[id number]] Collected:11/14/13 2055 Specimen Information:Sputum / Tracheal Aspirate Updated:11/16/13 1018 Specimen Description TRACHEAL ASPIRATE Specimen Description Result: Testing performed at [facility];[address] [place] [address];[place] [address] GRAM STAIN GREATER THAN 10 WBCS/LPF GRAM STAIN LESS THAN 10 SEC/LPF GRAM STAIN 2+ GRAM POSITIVE COCCI GRAM STAIN 1+ GRAM POSITIVE RODS GRAM STAIN Result: Testing performed at [address] [address] CULTURE 2+ NORMAL UPPER RESPIRATORY CURTIS CULTURE Result: Testing performed at [facility], [address] [place] [id number] REPORT STATUS 11/16/2013 FINAL Acetaminophen level [[id number]] (Abnormal) Collected:11/16/13 0755 Specimen Information:Blood Updated:11/16/13 0828 ACETAMINOPHEN 3.7 (L) ug/mL Magnesium [[id number]] Collected:11/16/13 0407 Specimen Information:Blood Updated:11/16/13 0800 Phosphorus [[id number]] Collected:11/16/13 0407 Specimen Information:Blood Updated:11/16/13 0800 CBC w/auto diff (reflex to manual) [[id number]] (Abnormal) Collected:11/16/13 0407 Specimen Information:Blood Updated:11/16/13 0503 WBC 11.5 (H) K/uL RBC 3.54 (L) M/uL HGB 10.1 (L) g/dL HCT 29.5 (L) % MCV 83.4 fl MCH 28.7 pg MCHC 34.3 g/dL RDW SD 37.6 fl PLT 176 K/uL MPV 7.8 fl DIFF TYPE AUTOMATED NEUTROPHILS 75.6 % LYMPHOCYTES 19.4 % MONOCYTES 4.2 % EOSINOPHILS 0.5 % BASOPHILS 0.3 % NEUTROPHILS ABS 8.7 (H) K/uL LYMPHOCYTES ABS 2.2 K/uL MONOCYTES ABS 0.5 K/uL EOSINOPHILS ABS 0.1 K/uL BASOPHILS ABS 0.0 K/uL Basic metabolic panel [[id number]] (Abnormal) Collected:11/16/13 0407 Specimen Information:Blood Updated:11/16/13 0440 SODIUM 143 mmol/L POTASSIUM 3.1 (L) mmol/L CHLORIDE 109 mmol/L CO2 27 mmol/L ANION GAP AGAP 10 mmol/L GLUCOSE 78 mg/dL BUN 7 (L) mg/dL CREATININE 0.77 mg/dL BUN/CREAT 9 CALCIUM 7.8 (L) mg/dL EGFR >60 mL/min/1.73m2 Acetaminophen level [[id number]] (Abnormal) Collected:11/16/13 0407 Specimen Information:Blood Updated:11/16/13 0440 ACETAMINOPHEN 4.5 (L) ug/mL Acetaminophen level [[id number]] (Abnormal) Collected:11/16/13 0036 Specimen Information:Blood Updated:11/16/13 0058 ACETAMINOPHEN 5.2 (L) ug/mL Troponin I [[id number]] (Abnormal) Collected:11/15/13 1602 Specimen Information:Blood Updated:11/15/13 1651 TROPONIN I 0.208 (H) ng/mL CK MB [[id number]] Collected:11/15/13 1602 MMB 3.4 ng/mL Updated:11/15/13 1651 CK-MB Index 2.4 CPK [[id number]] Collected:11/15/13 1602 Specimen Information:Blood Updated:11/15/13 1651 CPK 140 U/L Acetaminophen level [[id number]] Collected:11/15/13 1602 Specimen Information:Blood Updated:11/15/13 1651 ACETAMINOPHEN 10.0 ug/mL POCT glucose [[id number]] (Abnormal) Collected:11/14/13 1920 GLUCOSE,POC SCREEN 154 (H) mg/dL Updated:11/15/13 1317 Acetaminophen level [[id number]] (Abnormal) Collected:11/15/13 1132 Specimen Information:Blood Updated:11/15/13 1207 ACETAMINOPHEN 5.5 (L) ug/mL Basic metabolic panel [[id number]] (Abnormal) Collected:11/15/13 1132 Specimen Information:Blood Updated:11/15/13 1207 SODIUM 144 (H) mmol/L POTASSIUM 3.9 mmol/L CHLORIDE 114 (H) mmol/L CO2 20 (L) mmol/L ANION GAP AGAP 14 mmol/L GLUCOSE 153 (H) mg/dL BUN 8 mg/dL CREATININE 0.92 mg/dL BUN/CREAT 9 CALCIUM 7.4 (L) mg/dL EGFR >60 mL/min/1.73m2 CPK [[id number]] Collected:11/15/13850 Specimen Information:Blood Updated:11/15/1325 CPK 75 U/L Troponin I [[id number]] (Abnormal) Collected:11/15/13850 Specimen Information:Blood Updated:11/15/1325 TROPONIN I 0.325 (H) ng/mL CK MB [[id number]] Collected:11/15/13850 MMB 3.4 ng/mL Updated:11/15/13 0925 CK-MB Index 4.5 Acetaminophen level [[id number]] (Abnormal) Collected:11/15/13850 Specimen Information:Blood Updated:11/15/13 0925 ACETAMINOPHEN 6.3 (L) ug/mL POCT glucose [[id number]] Collected:11/15/13 0033 GLUCOSE,POC SCREEN 86 mg/dL Updated:11/15/13 0759 Osmolality [[id number]] (Abnormal) Collected:11/15/13 0408 Specimen Information:Blood Updated:11/15/13 0701 OSMOLALITY,SERUM 316 (H) mOsm/kg Lactic acid, plasma [[id number]] (Abnormal) Collected:11/15/13 0532 Specimen Information:Blood Updated:11/15/13 0617 LACTIC ACID 2.5 (H) mmol/L CBC w/auto diff (reflex to manual) [[id number]] (Abnormal) Collected:11/15/138 Specimen Information:Blood Updated:11/15/13 0530 WBC 5.5 K/uL RBC 3.94 M/uL HGB 10.9 (L) g/dL HCT 33.7 (L) % MCV 85.6 fl MCH 27.7 pg MCHC 32.3 g/dL RDW SD 37.6 fl PLT 196 K/uL MPV 7.3 fl DIFF TYPE AUTOMATED NEUTROPHILS 81.7 % LYMPHOCYTES 14.5 % MONOCYTES 3.5 % EOSINOPHILS 0.1 % BASOPHILS 0.2 % NEUTROPHILS ABS 4.5 K/uL LYMPHOCYTES ABS 0.8 (L) K/uL MONOCYTES ABS 0.2 K/uL EOSINOPHILS ABS 0.0 K/uL BASOPHILS ABS 0.0 K/uL MORPHOLOGY Troponin I [[id number]] (Abnormal) Collected:11/15/13407 Specimen Information:Blood Updated:11/15/13522 TROPONIN I 0.647 (HH) ng/mL CK MB [[id number]] Collected:11/15/13407 MMB 3.3 ng/mL Updated:11/15/13522 CK-MB Index 5.9 CPK [[id number]] Collected:11/15/13407 Specimen Information:Blood Updated:11/15/13521 CPK 56 U/L Comprehensive metabolic panel [[id number]] (Abnormal) Collected:11/15/13407 Specimen Information:Blood Updated:11/15/13521 SODIUM 148 (H) mmol/L POTASSIUM 3.2 (L) mmol/L CHLORIDE 117 (H) mmol/L CO2 13 (LL) mmol/L ANION GAP AGAP 20 mmol/L GLUCOSE 130 (H) mg/dL BUN 8 mg/dL CREATININE 0.69 mg/dL BUN/CREAT 12 CALCIUM 6.7 (L) mg/dL TOTAL PROTEIN 5.2 (L) g/dL Albumin 3.3 g/dL GLOBULIN 1.9 g/dL A/G 1.8 TBIL 0.2 mg/dL ALK PHOS 47 U/L AST 49 (H) U/L ALT 61 U/L EGFR >60 mL/min/1.73m2 Acetaminophen level [[id number]] (Abnormal) Collected:11/15/13407 Specimen Information:Blood Updated:11/15/13521 ACETAMINOPHEN 9.9 (L) ug/mL POC arterial CG4+ [[id number]] (Abnormal) Collected:11/14/13 2347 pH, Art 7.141 (LL) Updated:11/14/13 2351 POC PCO2 40 mmHg POC p02 283 (H) mmHg POC LACTATE 3.7 (H) mmol/L POC HCO3 14 (L) mmol/L POC TCO2 15 (L) mEq/L POC BASE DEFICIT 15 (H) mmol/L POC S02 100 (H) % POC FIO2 70 % POC COMMENTS Tidal Volume = 500 Lactic acid, plasma [[id number]] (Abnormal) Collected:11/14/132116 Specimen Information:Blood Updated:11/14/132155 LACTIC ACID 3.4 (H) mmol/L Basic metabolic panel [[id number]] (Abnormal) Collected:11/14/132112 Specimen Information:Blood Updated:11/14/132149 SODIUM 143 mmol/L POTASSIUM 3.0 (L) mmol/L CHLORIDE 114 (H) mmol/L CO2 16 (L) mmol/L ANION GAP AGAP 16 mmol/L GLUCOSE 187 (H) mg/dL BUN 10 mg/dL CREATININE 0.79 mg/dL BUN/CREAT 13 CALCIUM 6.5 (L) mg/dL EGFR >60 mL/min/1.73m2 Phosphorus [[id number]] Collected:11/14/132112 Specimen Information:Blood Updated:11/14/132149 PHOSPHORUS 2.4 mg/dL Magnesium [[id number]] Collected:11/14/132112 Specimen Information:Blood Updated:11/14/132149 MAGNESIUM 1.7 mg/dL Hepatic function panel [[id number]] (Abnormal) Collected:11/14/132112 TOTAL PROTEIN 5.6 (L) g/dL Updated:11/14/132149 Albumin 3.1 (L) g/dL TBIL 0.2 mg/dL BILI, DIRECT <0.1 mg/dL ALK PHOS 76 U/L AST 75 (H) U/L ALT 67 (H) U/L Acetaminophen level [[id number]] (Abnormal) Collected:11/14/132112 Specimen Information:Blood Updated:11/14/132149 ACETAMINOPHEN 44.4 (H) ug/mL Ionized calcium,to [facility] [[id number]] (Abnormal) Collected:11/14/132114 Specimen Information:Blood Updated:11/14/132145 CA++ 0.99 (L) mmol/L pH 7.179 (L) aPTT [[id number]] Collected:11/14/132112 Specimen Information:Blood Updated:11/14/132144 APTT 26 seconds Protime-INR [[id number]] Collected:11/14/132112 Specimen Information:Blood Updated:11/14/132144 INR 1.0 MRSA by PCR [[id number]] Collected:11/14/131929 Specimen Information:Nasopharyngeal / Nasopharyngeal Culture Updated:11/14/132130 SOURCE NARES(NOSE) RESULT NEGATIVE CBC w/auto diff (reflex to manual) [[id number]] (Abnormal) Collected:11/14/132112 Specimen Information:Blood Updated:11/14/132130 WBC 12.2 (H) K/uL RBC 4.41 M/uL HGB 12.7 g/dL HCT 37.4 % MCV 84.7 fl MCH 28.8 pg MCHC 34.0 g/dL RDW SD 37.2 fl PLT 296 K/uL MPV 7.2 fl DIFF TYPE AUTOMATED NEUTROPHILS 55.4 % LYMPHOCYTES 39.5 % MONOCYTES 4.5 % EOSINOPHILS 0.2 % BASOPHILS 0.4 % NEUTROPHILS ABS 6.7 K/uL LYMPHOCYTES ABS 4.8 (H) K/uL MONOCYTES ABS 0.5 K/uL EOSINOPHILS ABS 0.0 K/uL BASOPHILS ABS 0.0 K/uL Rapid drug screen, urine [[id number]] (Abnormal) Collected:11/14/131929 Specimen Information:Urine / Urine, Catheter Updated:11/14/132036 THC NEGATIVE PCP NEGATIVE COCAINE NEGATIVE METHAMPHETAMINES NEGATIVE OPIATES PRESUMPTIVE POSITIVE (A) AMPHETAMINE NEGATIVE BENZODIAZEPINE NEGATIVE TRICYCLIC ANTIDEPRESS PRESUMPTIVE POSITIVE (A) METHADONE NEGATIVE BARBITUATES NEGATIVE Urine microscopic only [[id number]] (Abnormal) Collected:11/14/131929 WBC 1-5 /hpf Updated:11/14/132035 RBC 0-2 /hpf EPITHELIAL NONE SEEN /lpf BACTERIA TRACE (A) Urinalysis (reflex to micro) [[id number]] (Abnormal) Collected:11/14/131929 Specimen Information:Urine / Urine, Catheter Updated:11/14/132035 COLOR UA OTHER CLARITY CLEAR Specific [place], UA 1.004 LEUKOCYTE ESTERASE TRACE (A) NITRITE NEGATIVE UROBILINOGEN 0.2 mg/dL PROTEIN NEGATIVE mg/dL PH,URINE 5.0 BLOOD NEGATIVE KETONES NEGATIVE mg/dL BILIRUBIN NEGATIVE GLUCOSE NEGATIVE mg/dL CBC: Lab Results Component Value Date WBC 7.8 11/17/2013 RBC 3.51* 11/17/2013 HGB 9.6* 11/17/2013 HCT 29.5* 11/17/2013 MCV 84.3 11/17/2013 MCH 27.5 11/17/2013 MCHC 32.6 11/17/2013 RDW 36.3* 11/17/2013 PLT 151 11/17/2013 MPV 7.9 11/17/2013 DIFFTYPE AUTOMATED 11/17/2013 CMP: Lab Results Component Value Date NA 134* 11/17/2013 K 3.8 11/17/2013 CL 103 11/17/2013 CO2 28 11/17/2013 ANIONGAP 7 11/17/2013 GLUF 131* 11/17/2013 BUN 7* 11/17/2013 CREATININE 0.61 11/17/2013 BCR 11 11/17/2013 CA 8.5 11/17/2013 PROT 5.2* 11/17/2013 ALB 3.1* 11/17/2013 GLOB 2.1 11/17/2013 BILITOT 0.6 11/17/2013 ALP 48 11/17/2013 AST 19 11/17/2013 ALT 21 11/17/2013 EGFR >60 11/17/2013 Magnesium: Lab Results Component Value Date MG 1.7 11/14/2013 Phosphorus: Lab Results Component Value Date PHOS 2.4 11/14/2013 PT/INR: Lab Results Component Value Date INR 1.0 11/14/2013 Last 3 Troponin: Lab Results Component Value Date TROPONINI 0.208* 11/15/2013 TROPONINI 0.325* 11/15/2013 TROPONINI 0.647* 11/15/2013 ABG: Lab Results Component Value Date POCPH 7.209* 11/15/2013 POCPCO 21* 11/15/2013 POCPO2 139* 11/15/2013 POCHCO 9* 11/15/2013 POCTCO2 9* 11/15/2013 POCBD 19* 11/15/2013 POCSO2 99* 11/15/2013 POCCMT Tidal Volume = 500 11/15/2013 Ct Head Without Contrast 11/14/2013 RONALD GUTIERREZKATARINAWTHRLEIGHANN [address] HEAD WO CONTRAST 11/14/2013 8: 58 PM INDICATION: Unresponsive. Intubated. COMPARISON: None TECHNIQUE: CT scan of the hea d without contrast. 5-mm axial noncontrast images were acquired from the foramen magnum thr ough the cranial vertex. FINDINGS: An ovoid low density focus in the right lentiform nucleu s measures 10 mm greatest dimension, probably a lacunar infarct, versus less likely a dilate d perivascular space. There is no evidence of acute infarct. Mild supratentorial white matte r disease is noted, likely white matter ischemic gliosis. No intracranial mass or hemorrhage is found. Mild probable age-related volume loss is noted with associated ventricular promin ence, without hydrocephalus. No orbital abnormalities are found. The paranasal sinuses are c lear. No mastoid fluid is found. Degenerative changes of the right temporomandibular joint a re noted. No worrisome lytic or blastic bony lesions are found. 11/14/2013 1. No acute intracranial pathology. 2. Hypodense focus in the right lentiform was, probably old lacunar infarct. 3. Senescent changes, as above. X-ray Chest 1 View 11/16/2013 RONALD KOWTHROP XR CHEST 1 VIEW 11/16/2013 6:21 AM History: 68 years. F emale. Acute respiratory failure secondary to drug overdose. Followup for pulmonary infiltr ates. Technique: AP portable upright technique was performed at 0519 hours. Comparison: Findings: Heterogeneous, moderate alveolar infiltrates are visualized in the perihil ar lung valenzuela bilaterally, somewhat greater on the right than the left, relatively unchange d as compared with 11/15/13. The lung bases are clear. No pleural effusion noted. The inspir atory effort is moderate. The patient is mildly rotated to the right. The cardiac volume is normal. A left jugular central venous catheters in good position with its tip in the superi or vena cava. The endotracheal tube is been removed. 11/16/2013 1. Persistent mild to moderate alveolar infiltrates suggesting mild alveolar pu lmonary edema, unchanged. 2. Endotracheal extubation. X-ray Chest 1 View 11/15/2013 RONALD WASHBURNHROP XR CHEST 1 VIEW 11/15/2013 6:08 AM History: 68 years. F emale. Acute respiratory failure secondary to drug overdose. Followup exam. Technique: AP portable upright technique was performed at 0524 hours. Comparison: 11/14/13 Findings: The inspiratory effort is moderate. Moderate peribronchial infiltrates are visualized in the ce ntral lung valenzuela bilaterally, upper and lower zones, unchanged as compared with 11/14/13. T he infiltrates are nonspecific, suggesting mild alveolar pulmonary edema, or aspiration pneu monia. The lung bases are clear. No pleural effusion. The cardiac volume is normal. The pul monary logan and mediastinal contours are normal. The thoracic aorta is normal, without dilat ation or calcification. The tip of the endotracheal tube is at T5. A left jugular central v enous catheters in good position with its tip in the superior vena cava. A nasogastric tube is positioned in the stomach. 11/15/2013 1. Persistent mild bilateral peribronchial and alveolar infiltrates suggesting pulmonary edema or aspiration, unchanged as compared with 11/14/13. 2. Satisfactory positio n of life-support catheters. 7: 40 AM X-ray Chest Ap Only 11/14/2013 RONALD CASTAÑEDA XR CHEST 1 VIEW 11/14/2013 11:33 PM HISTORY: Assessment f or life support lines and tubes. TECHNIQUE: AP chest film 2344 hrs. COMPARISON: AP chest f ilm 11/14/13 at 2030 hrs. FINDINGS: The well-positioned endotracheal tube and nasogastric tu be are unchanged. The right internal jugular central venous catheter has been advanced, curr ently with the tip at the atriocaval junction Patchy bilateral airspace disease is again see n, relatively unchanged, most significant in the right midlung field. No pneumothorax or ple ural effusion is found. The cardiac silhouette is normal. Mild unchanged scoliosis is again found. Cholecystectomy clips are again seen. 11/14/2013 1. Other than advancement of the central venous catheter, currently with the ti p at the atriocaval junction, no significant interval change. Xr Chest 1 View 11/14/2013 Also seen is a left internal jugular approach central venous catheter, the tip overlying the region of the mid to distal superior vena cava. 11/14/2013 RNOALD CASTAÑEDA XR CHEST 1 VIEW 11/14/2013 8:56 PM HISTORY: Respiratory f ailure. TECHNIQUE: AP chest film. COMPARISON: None. FINDINGS: A well-positioned endotrach eal tube is noted. Patchy airspace disease is noted bilaterally, most significant in the rig ht midlung field. No pneumothorax or pleural effusion is found. The cardiac silhouette is no rmal. A nasogastric tube is present, with the tip extending to the gastric body, and probabl y off of the film. Moderate gastric distention is noted. An ovoid artifact likely overlies t he stomach. Mild convex right curvature of the thoracic spine is found. Mild convex left cur vature of the upper lumbar spine is seen. No worrisome lytic or blastic bony lesions are obs erved. Cholecystectomy clips are observed. 11/14/2013 1. Status post intubation and placement of nasogastric tube, as above. 2. Non specific patchy bilateral airspace disease, potentially pneumonia or pulmonary alveolar lars a. Echo Cardiac Adult Limited 11/15/2013 Patient Name: RONALD CASTAÑEDA Date of : 1945 Performing Physician: Finesse Cortez MD INDICATIONS altered mental status, copd CONCLUSIONS ------- ---- 1. This was a technically difficult study with suboptimal views. 2. Overall left ventri cular systolic function is normal with, an EF between 60 - 65 %. 3. Mild mitral annular calc ification present. FINDINGS -------- ECG rhythm: Resting tachycardia (HR>100bpm). Study: A limited 2-dimensional transthoracic echocardiogram with limited spectral and color flow Dopp ler was performed. Study: This was a technically difficult study with suboptimal views. Study: Patient in pain not able to hold still for echo. Left Ventricle: Overall left ventric ular systolic function is normal with, an EF between 60 - 65 %. Left Ventricle: The left ve ntricle cavity size is normal. Left Ventricle: Left ventricular wall thickness is normal. Left Ventricle: Cannot assess diastolic function due to tachycardia. Left Atrium: The left a trial size is normal. Right Atrium: The right atrial size is normal Right Atrium: , and the RA measures 3.7cm. Aortic Valve: The aortic valve was not well visualized. Aortic Valve: Th ere is no evidence of aortic regurgitation. Aortic Valve: There is no evidence of aortic st enosis. Mitral Valve: Mild mitral annular calcification present. Tricuspid Valve: The tricus pid valve was not well visualized. Tricuspid Valve: Trace tricuspid regurgitation present. Tricuspid Valve: Right ventricular systolic pressure (pulmonary artery systolic pressure) i s normal at < 35 mmHg. Pulmonic Valve: The pulmonic valve was not well visualized. Pericardi um: There is no pericardial effusion. IVC/Hepatic Veins: The IVC is normal size (1.5-2.5cm) and collapses <50% with sniff, consistent with central venous pressures of 10-15mmHg. MEASU REMENTS LA Major: 3.64 cm EDV(Teich): 78.10 ml IVSd: 0.86 cm LVIDd: 4. 18 cm LVPWd: 0.76 cm LVOT Diam: 1.94 cm %FS: 36.37 % EF(Teich): 66.49 % ESV(Teich): 26.16 ml IVSs: 1.14 cm LVIDs: 2.66 cm LVPWs: 1.14 cm SV(Teich): 51.93 ml RA Major: 3.67 cm IVC diameter: 2.38 cm IVC collapse: 1.58 cm IVC % collapse: 30.95 % HR: 1 31.95 BPM AV maxP.31 mmHg AV meanP.05 mmHg AV Vmax: 1.44 m/s AV Vmean: 1.08 m/s AV VTI: 23.26 cm SHABNAM Vmax: 3.14 cm2 SHABNAM (VTI): 2.90 cm2 LVCI Dopp: 4.57 l/minm2 LVCO Dopp: 7.95 l/min HR: 117.60 BPM LVOT maxP.36 mmHg LVOT meanP.28 mmHg LV SI Dopp: 38.87 ml/m2 LVSV Dopp: 67.64 ml LVOT Vmax: 1.52 m/s LVOT Vmean: 1.10 m/s LV OT VTI: 22.79 cm MV A Mark: 1.31 m/s MV DecT: 74.24 ms MV E Mark: 1.08 m/s MV E/A Rati o: 0.82 Septal e': 0.16 m/s Septal E/e': 6.57 Lateral e': 0.10 m/s Lateral E/e': 10.66 RAP: 10 mmHg RVSP: 33.88 mmHg TR maxP.88 mmHg TR Vmax: 2.44 m/s Sonogr apher: AB Authenticated by: Finesse Cortez MD Report Date/Time: 11-15-2013 18:08:31 11/15/2013 1. This was a technically difficult study with suboptimal views. 2. Overall left ventricular systolic function is normal with, an EF between 60 - 65 %. 3. Mild mitral annul ar calcification present. PROBLEM LIST Principal Problem: *Overdose of muscle relaxant Active Problems: Acute respiratory failure Metabolic acidosis Coma Alcohol intoxication Hypotension, unspecified Anemia, unspecified ASSESSMENT & PLAN 1. Pneumonia which is likely secondary to aspiration, and the patient is certainly at an in creased risk of worsening pneumonia. Her cough is getting worse. Start the patient on Levaqu in and continue the patient's Augmentin. Will start the patient on Robitussin 10 mL every 4 hours p.r.n. 2. Chronic lower back pain. Start the patient on Robaxin p.r.n. 3. History of major depression with multiple suicidal attempts. The patient was evaluated b y Dr. Laguerre and will re-consult him once the patient is medically stable, as she may get benefit from inpatient psychiatric facility. 4. Generalized weakness, likely secondary to deconditioning. I will consult PT. 5. 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 S tart the patient on Xopenex every 6 hours and Advair 250/50, 1 puff b.i.d. and will add Leva deangelo. 6. Anxiety and depression. Will start the patient on clonazepam 0.5 mg t.i.d. p.r.n. 7. Hypothyroidism. Will check TSH and continue the patient on Synthroid 112 mcg p.o. daily. 8. Gastroesophageal reflux disease. Start the patient on ranitidine 150 mg daily. 9. Restless leg syndrome. On Requip 2 mg 3 times daily. 10. Anemia. The patient's complete iron panel and B12 are within normal limits. Will check guaiac stools to rule out any occult blood loss. 11. DVT prophylaxis. Will start the patient on Lovenox if guaiac stools are negative, and c ontinue the patient on stockings. I spent > 35 minutes talking to patient,doing exam and revising records from [facility]. FRAN BARNES MD 11/17/2013 onversion Transactio n, Provider Unknown - 11/17/2013 4:27 AM PST Nurse Progress Note by Jazzy Patel RN at 11/17/137 Author: Jazzy Patel RN Service: (none) Author Type: Registered Nurse Filed: 11/17/13 0429 Date of Service: 11/17/13426 Status: Signed Infrastructure Engineer: Jazzy Patel RN (Registered Nurse) Pt currently sleeping. Pt has been sleeping for most of shift superintendent caustic cresylate. Unable to score CIWA a s patient has been sleeping. Vital signs stable. Pt afebrile. Pt requested pain meds once fo r back pain. Otherwise no acute changes from previous assessment. Pt visualized hourly. Will continue to monitor. Jazzy Amaya RN 11/17/2013 4:29 AM Fran Porter MD - 11/16/2013 2:50 PM PSTFormatting of this note might be different from the or iginal. Progress Notes by Fran Barnes MD at 11/16/13 8070 Author: Fran Barnes MD Service: Hospitalist Author Type: Physician Filed: 11/17/13 1746 Date of Service: 11/16/13 5190 Status: Signed Infrastructure Engineer: Fran Barnes MD (Physician) Related Notes: Original Note by Fran Barnes MD (Physician) filed at 11/16/13 8993 [facility] Service: Hospitalist Progress Note Ronald Castañeda 68 y.o. [id number] [facility] Day: LOS: 2 days Patient Summary: A 68-year-old female with past medical history of depression and his tory of suicidal attempts, COPD per patient but there is no documentation of it, who took an overdose of Flexeril and EMS found her in the bathtub with clothes on, and the patient was taken to [facility] ER where she was found to be unresponsive and hypertensive, an d was intubated and sent to [facility] for further workup and treatment. The patient was put on dopamine, norepinephrine, and she was extubated the next day after w hich she was transferred to the floor on November 15, 2013, late afternoon. The patient was a lso found to have an Tylenol level of 44, hence she was put on acetylcysteine protocol. The patient's alcohol level was also found to be more than 300. Rapid drug screen showed opiates as well as tricyclic positive. She was put on CIHI protocol for alcohol withdrawal. Today when I saw the patient, she was confused, and thinks she is at her home and was paran oid as she does not want to talk to me in front of the sitter. The patient told that she is not feeling well otherwise denied any chest pain. No shortness of breath. No nausea. No vomi ting. No abdominal pain. She follows simple commands. She is able to squeeze my hands. The p atient told that she lives alone in [place]. She goes to [facility]. She also menti oned that she has a history of COPD and depression, though she denied any history of smoking , and told that she was exposed to paint. The patient is a very poor historian and not able to get any meaningful history from her. Scheduled Medications [COMPLETED] acetylcysteine 100 mg/kg Intravenous Once acetylcysteine 600 mg Oral BID amoxicillin-clavulanate 1 tablet Oral Q12H WESLEY docusate sodium 100 mg Oral BID Or docusate 100 mg Per OG Tube BID folic acid (FOLVITE) IVPB 1 mg Intravenous Daily Or multivitamin & minerals w iron/FA 1 tablet Oral Daily influenza trivalent-split vaccine 0.5 mL Intramuscular Once Immunization pneumococcal 23-valent vaccine 0.5 mL Intramuscular Once Immunization thiamine (VITAMIN B1) IVPB 100 mg Intravenous Q24H Or thiamine 100 mg Oral Q24H [DISCONTINUED] chlorhexidine gluconate 15 mL Mouth/Throat Q12H [DISCONTINUED] omeprazole 20 mg Oral QAM AC [DISCONTINUED] pantoprazole 40 mg Intravenous QAM AC Continuous Infusions sodium bicarbonate drip 100 mEq/1000 mL 110 mL/hr at 11/16/13 0611 [DISCONTINUED] norepinephrine in D5W 64 mcg/mL Stopped (11/15/13 0300) PRN Medications lip moisturizer, magnesium sulfate, magnesium sulfate, magnesium sulfate, nystatin, nystati n, ondansetron, ondansetron, oxyCODONE, petrolatum, phosphorus, potassium chloride, potassiu m chloride, potassium chloride, sodium glycerophosphate IVPB 15 mMol, sodium glycerophosphat e IVPB 30 mMol, [DISCONTINUED] oxyCODONE-acetaminophen, [DISCONTINUED] oxyCODONE-acetaminoph en Allergy: Allergies Allergen Reactions Ambien (Zolpidem) Other (See Comments) Unknown Ativan (Lorazepam) Other (See Comments) Unknown Morphine Other (See Comments) unknown OBJECTIVE Vital Signs: BP 136/63 | Pulse 100 | Temp 99.6 F (37.6 C) (Oral) | Resp 21 | Wt 69.3 kg (152 lb 12.5 oz) | SpO2 96% | ? No Temp: [97.3 F (36.3 C)-99.6 F (37.6 C)] 99.6 F (37.6 C) (11/16 1413) BP: (102-136)/(51-68) 136/63 mmHg (11/16 122) Heart Rate: [100-117] 100 (11/16 122) Resp: [18-24] 21 (11/16 1224) SpO2: [92 %-98 %] 96 % (11/16 122) Weight: [69.3 kg (152 lb 12.5 oz)] 69.3 kg (152 lb 12.5 oz) (11/16 414) I&O Detailed Table: Intake/Output Summary (Last 24 hours) at 11/16/13 1450 Last data filed at 11/16/13 1100 Gross per 24 hour Intake 5444.22 ml Output 5300 ml Net 144.22 ml Hemodynamics Last 24hrs: CVP (mean): [5 mmHg-7 mmHg] 7 mmHg (11/15 1700) PA catheter wave form: [-] Examination: Constitutional: Alert and oriented to person,not to place and time Cardiovascular: Normal rate, regular rhythm, normal heart sounds and intact distal pulses. Exam reveals no gallop and no friction rub. No murmur heard. Pulmonary/Chest: Effort normal and decreased breath sounds at bases . No stridor. No respir atory distress. no wheezes. no rales. exhibits no tenderness. Abdominal: Soft. Bowel sounds are normal. exhibits no distension and no mass. There is no t enderness. There is no rebound and no guarding. Musculoskeletal: Normal range of motion.exhibits no tenderness. exhibits no edema. Neurological: Alert and oriented to person, not to place, and time. No focal deficit Skin: Skin is warm and dry. No rash noted. No erythema. No pallor. Laboratory: Glucose: Results Procedure Component Value Units Date/Time Urine culture [[id number]] Collected:11/16/13 0951 Specimen Information:Urine / Urine, Clean Catch Updated:11/16/13 1144 Potassium [[id number]] Collected:11/16/13 1112 Specimen Information:Blood Updated:11/16/13 1133 POTASSIUM 3.6 mmol/L Sputum culture [[id number]] Collected:11/14/13 2055 Specimen Information:Sputum / Tracheal Aspirate Updated:11/16/13 1018 Specimen Description TRACHEAL ASPIRATE Specimen Description Result: Testing performed at [facility];[address] [place] [address];[place] [address] GRAM STAIN GREATER THAN 10 WBCS/LPF GRAM STAIN LESS THAN 10 SEC/LPF GRAM STAIN 2+ GRAM POSITIVE COCCI GRAM STAIN 1+ GRAM POSITIVE RODS GRAM STAIN Result: Testing performed at [facility], [address] [place] [address] CULTURE 2+ NORMAL UPPER RESPIRATORY CURTIS CULTURE Result: Testing performed at [facility], [address] [place] [address] REPORT STATUS 11/16/2013 FINAL Acetaminophen level [[id number]] (Abnormal) Collected:11/16/13 0755 Specimen Information:Blood Updated:11/16/13 0828 ACETAMINOPHEN 3.7 (L) ug/mL Magnesium [[id number]] Collected:11/16/13406 Specimen Information:Blood Updated:11/16/13 0800 Phosphorus [[id number]] Collected:11/16/13406 Specimen Information:Blood Updated:11/16/13 0800 CBC w/auto diff (reflex to manual) [[id number]] (Abnormal) Collected:11/16/13406 Specimen Information:Blood Updated:11/16/13 0503 WBC 11.5 (H) K/uL RBC 3.54 (L) M/uL HGB 10.1 (L) g/dL HCT 29.5 (L) % MCV 83.4 fl MCH 28.7 pg MCHC 34.3 g/dL RDW SD 37.6 fl PLT 176 K/uL MPV 7.8 fl DIFF TYPE AUTOMATED NEUTROPHILS 75.6 % LYMPHOCYTES 19.4 % MONOCYTES 4.2 % EOSINOPHILS 0.5 % BASOPHILS 0.3 % NEUTROPHILS ABS 8.7 (H) K/uL LYMPHOCYTES ABS 2.2 K/uL MONOCYTES ABS 0.5 K/uL EOSINOPHILS ABS 0.1 K/uL BASOPHILS ABS 0.0 K/uL Basic metabolic panel [[id number]] (Abnormal) Collected:11/16/13406 Specimen Information:Blood Updated:11/16/13 044 SODIUM 143 mmol/L POTASSIUM 3.1 (L) mmol/L CHLORIDE 109 mmol/L CO2 27 mmol/L ANION GAP AGAP 10 mmol/L GLUCOSE 78 mg/dL BUN 7 (L) mg/dL CREATININE 0.77 mg/dL BUN/CREAT 9 CALCIUM 7.8 (L) mg/dL EGFR >60 mL/min/1.73m2 Acetaminophen level [[id number]] (Abnormal) Collected:11/16/13406 Specimen Information:Blood Updated:11/16/13 0440 ACETAMINOPHEN 4.5 (L) ug/mL Acetaminophen level [[id number]] (Abnormal) Collected:11/16/13 0036 Specimen Information:Blood Updated:11/16/13 0058 ACETAMINOPHEN 5.2 (L) ug/mL Troponin I [[id number]] (Abnormal) Collected:11/15/13 1602 Specimen Information:Blood Updated:11/15/13 1651 TROPONIN I 0.208 (H) ng/mL CK MB [[id number]] Collected:11/15/13 1602 MMB 3.4 ng/mL Updated:11/15/13 165 CK-MB Index 2.4 CPK [[id number]] Collected:11/15/13 160 Specimen Information:Blood Updated:11/15/13 1651 CPK 140 U/L Acetaminophen level [[id number]] Collected:11/15/13 160 Specimen Information:Blood Updated:11/15/13 1651 ACETAMINOPHEN 10.0 ug/mL POCT glucose [[id number]] (Abnormal) Collected:11/14/13 1920 GLUCOSE,POC SCREEN 154 (H) mg/dL Updated:11/15/13 1317 Acetaminophen level [[id number]] (Abnormal) Collected:11/15/13 1132 Specimen Information:Blood Updated:11/15/13 1207 ACETAMINOPHEN 5.5 (L) ug/mL Basic metabolic panel [[id number]] (Abnormal) Collected:11/15/13 1132 Specimen Information:Blood Updated:11/15/13 1207 SODIUM 144 (H) mmol/L POTASSIUM 3.9 mmol/L CHLORIDE 114 (H) mmol/L CO2 20 (L) mmol/L ANION GAP AGAP 14 mmol/L GLUCOSE 153 (H) mg/dL BUN 8 mg/dL CREATININE 0.92 mg/dL BUN/CREAT 9 CALCIUM 7.4 (L) mg/dL EGFR >60 mL/min/1.73m2 CPK [[id number]] Collected:11/15/1351 Specimen Information:Blood Updated:11/15/13 0925 CPK 75 U/L Troponin I [[id number]] (Abnormal) Collected:11/15/13850 Specimen Information:Blood Updated:11/15/13 0925 TROPONIN I 0.325 (H) ng/mL CK MB [[id number]] Collected:11/15/13850 MMB 3.4 ng/mL Updated:11/15/13 0925 CK-MB Index 4.5 Acetaminophen level [[id number]] (Abnormal) Collected:11/15/13 0851 Specimen Information:Blood Updated:11/15/13 0925 ACETAMINOPHEN 6.3 (L) ug/mL POCT glucose [[id number]] Collected:11/15/13 0033 GLUCOSE,POC SCREEN 86 mg/dL Updated:11/15/13 0759 Osmolality [[id number]] (Abnormal) Collected:11/15/13407 Specimen Information:Blood Updated:11/15/13 0701 OSMOLALITY,SERUM 316 (H) mOsm/kg Lactic acid, plasma [[id number]] (Abnormal) Collected:11/15/13 0532 Specimen Information:Blood Updated:11/15/13 0617 LACTIC ACID 2.5 (H) mmol/L CBC w/auto diff (reflex to manual) [[id number]] (Abnormal) Collected:11/15/13407 Specimen Information:Blood Updated:11/15/13529 WBC 5.5 K/uL RBC 3.94 M/uL HGB 10.9 (L) g/dL HCT 33.7 (L) % MCV 85.6 fl MCH 27.7 pg MCHC 32.3 g/dL RDW SD 37.6 fl PLT 196 K/uL MPV 7.3 fl DIFF TYPE AUTOMATED NEUTROPHILS 81.7 % LYMPHOCYTES 14.5 % MONOCYTES 3.5 % EOSINOPHILS 0.1 % BASOPHILS 0.2 % NEUTROPHILS ABS 4.5 K/uL LYMPHOCYTES ABS 0.8 (L) K/uL MONOCYTES ABS 0.2 K/uL EOSINOPHILS ABS 0.0 K/uL BASOPHILS ABS 0.0 K/uL MORPHOLOGY Troponin I [[id number]] (Abnormal) Collected:11/15/13407 Specimen Information:Blood Updated:11/15/13522 TROPONIN I 0.647 (HH) ng/mL CK MB [[id number]] Collected:11/15/13407 MMB 3.3 ng/mL Updated:11/15/13522 CK-MB Index 5.9 CPK [[id number]] Collected:11/15/13407 Specimen Information:Blood Updated:11/15/13521 CPK 56 U/L Comprehensive metabolic panel [[id number]] (Abnormal) Collected:11/15/13407 Specimen Information:Blood Updated:11/15/13521 SODIUM 148 (H) mmol/L POTASSIUM 3.2 (L) mmol/L CHLORIDE 117 (H) mmol/L CO2 13 (LL) mmol/L ANION GAP AGAP 20 mmol/L GLUCOSE 130 (H) mg/dL BUN 8 mg/dL CREATININE 0.69 mg/dL BUN/CREAT 12 CALCIUM 6.7 (L) mg/dL TOTAL PROTEIN 5.2 (L) g/dL Albumin 3.3 g/dL GLOBULIN 1.9 g/dL A/G 1.8 TBIL 0.2 mg/dL ALK PHOS 47 U/L AST 49 (H) U/L ALT 61 U/L EGFR >60 mL/min/1.73m2 Acetaminophen level [[id number]] (Abnormal) Collected:11/15/13 0408 Specimen Information:Blood Updated:11/15/13 0522 ACETAMINOPHEN 9.9 (L) ug/mL POC arterial CG4+ [[id number]] (Abnormal) Collected:11/14/132346 pH, Art 7.141 (LL) Updated:11/14/13 2351 POC PCO2 40 mmHg POC p02 283 (H) mmHg POC LACTATE 3.7 (H) mmol/L POC HCO3 14 (L) mmol/L POC TCO2 15 (L) mEq/L POC BASE DEFICIT 15 (H) mmol/L POC S02 100 (H) % POC FIO2 70 % POC COMMENTS Tidal Volume = 500 Lactic acid, plasma [[id number]] (Abnormal) Collected:11/14/132116 Specimen Information:Blood Updated:11/14/132155 LACTIC ACID 3.4 (H) mmol/L Basic metabolic panel [[id number]] (Abnormal) Collected:11/14/132112 Specimen Information:Blood Updated:11/14/132149 SODIUM 143 mmol/L POTASSIUM 3.0 (L) mmol/L CHLORIDE 114 (H) mmol/L CO2 16 (L) mmol/L ANION GAP AGAP 16 mmol/L GLUCOSE 187 (H) mg/dL BUN 10 mg/dL CREATININE 0.79 mg/dL BUN/CREAT 13 CALCIUM 6.5 (L) mg/dL EGFR >60 mL/min/1.73m2 Phosphorus [[id number]] Collected:11/14/132112 Specimen Information:Blood Updated:11/14/132149 PHOSPHORUS 2.4 mg/dL Magnesium [[id number]] Collected:11/14/132112 Specimen Information:Blood Updated:11/14/132149 MAGNESIUM 1.7 mg/dL Hepatic function panel [[id number]] (Abnormal) Collected:11/14/132112 TOTAL PROTEIN 5.6 (L) g/dL Updated:11/14/132149 Albumin 3.1 (L) g/dL TBIL 0.2 mg/dL BILI, DIRECT <0.1 mg/dL ALK PHOS 76 U/L AST 75 (H) U/L ALT 67 (H) U/L Acetaminophen level [[id number]] (Abnormal) Collected:11/14/132112 Specimen Information:Blood Updated:11/14/132149 ACETAMINOPHEN 44.4 (H) ug/mL Ionized calcium,to [facility] [[id number]] (Abnormal) Collected:11/14/132114 Specimen Information:Blood Updated:11/14/132145 CA++ 0.99 (L) mmol/L pH 7.179 (L) aPTT [[id number]] Collected:11/14/132112 Specimen Information:Blood Updated:11/14/132144 APTT 26 seconds Protime-INR [[id number]] Collected:11/14/132112 Specimen Information:Blood Updated:11/14/132144 INR 1.0 MRSA by PCR [[id number]] Collected:11/14/131929 Specimen Information:Nasopharyngeal / Nasopharyngeal Culture Updated:11/14/132130 SOURCE NARES(NOSE) RESULT NEGATIVE CBC w/auto diff (reflex to manual) [[id number]] (Abnormal) Collected:11/14/132112 Specimen Information:Blood Updated:11/14/132130 WBC 12.2 (H) K/uL RBC 4.41 M/uL HGB 12.7 g/dL HCT 37.4 % MCV 84.7 fl MCH 28.8 pg MCHC 34.0 g/dL RDW SD 37.2 fl PLT 296 K/uL MPV 7.2 fl DIFF TYPE AUTOMATED NEUTROPHILS 55.4 % LYMPHOCYTES 39.5 % MONOCYTES 4.5 % EOSINOPHILS 0.2 % BASOPHILS 0.4 % NEUTROPHILS ABS 6.7 K/uL LYMPHOCYTES ABS 4.8 (H) K/uL MONOCYTES ABS 0.5 K/uL EOSINOPHILS ABS 0.0 K/uL BASOPHILS ABS 0.0 K/uL Rapid drug screen, urine [[id number]] (Abnormal) Collected:11/14/131929 Specimen Information:Urine / Urine, Catheter Updated:11/14/132036 THC NEGATIVE PCP NEGATIVE COCAINE NEGATIVE METHAMPHETAMINES NEGATIVE OPIATES PRESUMPTIVE POSITIVE (A) AMPHETAMINE NEGATIVE BENZODIAZEPINE NEGATIVE TRICYCLIC ANTIDEPRESS PRESUMPTIVE POSITIVE (A) METHADONE NEGATIVE BARBITUATES NEGATIVE Urine microscopic only [[id number]] (Abnormal) Collected:11/14/131929 WBC 1-5 /hpf Updated:11/14/132035 RBC 0-2 /hpf EPITHELIAL NONE SEEN /lpf BACTERIA TRACE (A) Urinalysis (reflex to micro) [[id number]] (Abnormal) Collected:11/14/131929 Specimen Information:Urine / Urine, Catheter Updated:11/14/132035 COLOR UA OTHER CLARITY CLEAR Specific [place], UA 1.004 LEUKOCYTE ESTERASE TRACE (A) NITRITE NEGATIVE UROBILINOGEN 0.2 mg/dL PROTEIN NEGATIVE mg/dL PH,URINE 5.0 BLOOD NEGATIVE KETONES NEGATIVE mg/dL BILIRUBIN NEGATIVE GLUCOSE NEGATIVE mg/dL CBC: Lab Results Component Value Date WBC 11.5* 11/16/2013 RBC 3.54* 11/16/2013 HGB 10.1* 11/16/2013 HCT 29.5* 11/16/2013 MCV 83.4 11/16/2013 MCH 28.7 11/16/2013 MCHC 34.3 11/16/2013 RDW 37.6 11/16/2013 PLT 176 11/16/2013 MPV 7.8 11/16/2013 DIFFTYPE AUTOMATED 11/16/2013 CMP: Lab Results Component Value Date NA 143 11/16/2013 K 3.6 11/16/2013 CL 109 11/16/2013 CO2 27 11/16/2013 ANIONGAP 10 11/16/2013 GLUF 78 11/16/2013 BUN 7* 11/16/2013 CREATININE 0.77 11/16/2013 BCR 9 11/16/2013 CA 7.8* 11/16/2013 PROT 5.2* 11/15/2013 ALB 3.3 11/15/2013 GLOB 1.9 11/15/2013 BILITOT 0.2 11/15/2013 ALP 47 11/15/2013 AST 49* 11/15/2013 ALT 61 11/15/2013 EGFR >60 11/16/2013 Magnesium: Lab Results Component Value Date MG 1.7 11/14/2013 Phosphorus: Lab Results Component Value Date PHOS 2.4 11/14/2013 PT/INR: Lab Results Component Value Date INR 1.0 11/14/2013 Last 3 Troponin: Lab Results Component Value Date TROPONINI 0.208* 11/15/2013 TROPONINI 0.325* 11/15/2013 TROPONINI 0.647* 11/15/2013 ABG: Lab Results Component Value Date POCPH 7.209* 11/15/2013 POCPCO 21* 11/15/2013 POCPO2 139* 11/15/2013 POCHCO 9* 11/15/2013 POCTCO2 9* 11/15/2013 POCBD 19* 11/15/2013 POCSO2 99* 11/15/2013 POCCMT Tidal Volume = 500 11/15/2013 Ct Head Without Contrast 11/14/2013 RONALD CASTAÑEDA [address] HEAD WO CONTRAST 11/14/2013 8: 58 PM INDICATION: Unresponsive. Intubated. COMPARISON: None TECHNIQUE: CT scan of the hea d without contrast. 5-mm axial noncontrast images were acquired from the foramen magnum thr ough the cranial vertex. FINDINGS: An ovoid low density focus in the right lentiform nucleu s measures 10 mm greatest dimension, probably a lacunar infarct, versus less likely a dilate d perivascular space. There is no evidence of acute infarct. Mild supratentorial white matte r disease is noted, likely white matter ischemic gliosis. No intracranial mass or hemorrhage is found. Mild probable age-related volume loss is noted with associated ventricular promin ence, without hydrocephalus. No orbital abnormalities are found. The paranasal sinuses are c lear. No mastoid fluid is found. Degenerative changes of the right temporomandibular joint a re noted. No worrisome lytic or blastic bony lesions are found. 11/14/2013 1. No acute intracranial pathology. 2. Hypodense focus in the right lentiform was, probably old lacunar infarct. 3. Senescent changes, as above. X-ray Chest 1 View 11/16/2013 RONALD CASTAÑEDA XR CHEST 1 VIEW 11/16/2013 6:21 AM History: 68 years. F emale. Acute respiratory failure secondary to drug overdose. Followup for pulmonary infiltr ates. Technique: AP portable upright technique was performed at 0519 hours. Comparison: Findings: Heterogeneous, moderate alveolar infiltrates are visualized in the perihil ar lung valenzuela bilaterally, somewhat greater on the right than the left, relatively unchange d as compared with 11/15/13. The lung bases are clear. No pleural effusion noted. The inspir atory effort is moderate. The patient is mildly rotated to the right. The cardiac volume is normal. A left jugular central venous catheters in good position with its tip in the superi or vena cava. The endotracheal tube is been removed. 11/16/2013 1. Persistent mild to moderate alveolar infiltrates suggesting mild alveolar pu lmonary edema, unchanged. 2. Endotracheal extubation. X-ray Chest 1 View 11/15/2013 RONALD DOTYFAWTHROP XR CHEST 1 VIEW 11/15/2013 6:08 AM History: 68 years. F emale. Acute respiratory failure secondary to drug overdose. Followup exam. Technique: AP portable upright technique was performed at 0524 hours. Comparison: 11/14/13 Findings: The inspiratory effort is moderate. Moderate peribronchial infiltrates are visualized in the ce ntral lung valenzuela bilaterally, upper and lower zones, unchanged as compared with 11/14/13. T he infiltrates are nonspecific, suggesting mild alveolar pulmonary edema, or aspiration pneu monia. The lung bases are clear. No pleural effusion. The cardiac volume is normal. The pul monary logan and mediastinal contours are normal. The thoracic aorta is normal, without dilat ation or calcification. The tip of the endotracheal tube is at T5. A left jugular central v enous catheters in good position with its tip in the superior vena cava. A nasogastric tube is positioned in the stomach. 11/15/2013 1. Persistent mild bilateral peribronchial and alveolar infiltrates suggesting pulmonary edema or aspiration, unchanged as compared with 11/14/13. 2. Satisfactory positio n of life-support catheters. 7: 40 AM X-ray Chest Ap Only 11/14/2013 RONALD DOPAULHROP XR CHEST 1 VIEW 11/14/2013 11:33 PM HISTORY: Assessment f or life support lines and tubes. TECHNIQUE: AP chest film 2344 hrs. COMPARISON: AP chest f ilm 11/14/13 at 2030 hrs. FINDINGS: The well-positioned endotracheal tube and nasogastric tu be are unchanged. The right internal jugular central venous catheter has been advanced, curr ently with the tip at the atriocaval junction Patchy bilateral airspace disease is again see n, relatively unchanged, most significant in the right midlung field. No pneumothorax or ple ural effusion is found. The cardiac silhouette is normal. Mild unchanged scoliosis is again found. Cholecystectomy clips are again seen. 11/14/2013 1. Other than advancement of the central venous catheter, currently with the ti p at the atriocaval junction, no significant interval change. Xr Chest 1 View 11/14/2013 Also seen is a left internal jugular approach central venous catheter, the tip overlying the region of the mid to distal superior vena cava. 11/14/2013 RONALD GUTIERREZYOONHRLEIGHANN XR CHEST 1 VIEW 11/14/2013 8:56 PM HISTORY: Respiratory f ailure. TECHNIQUE: AP chest film. COMPARISON: None. FINDINGS: A well-positioned endotrach eal tube is noted. Patchy airspace disease is noted bilaterally, most significant in the rig ht midlung field. No pneumothorax or pleural effusion is found. The cardiac silhouette is no rmal. A nasogastric tube is present, with the tip extending to the gastric body, and probabl y off of the film. Moderate gastric distention is noted. An ovoid artifact likely overlies t he stomach. Mild convex right curvature of the thoracic spine is found. Mild convex left cur vature of the upper lumbar spine is seen. No worrisome lytic or blastic bony lesions are obs erved. Cholecystectomy clips are observed. 11/14/2013 1. Status post intubation and placement of nasogastric tube, as above. 2. Non specific patchy bilateral airspace disease, potentially pneumonia or pulmonary alveolar lars a. Echo Cardiac Adult Limited 11/15/2013 Patient Name: RONALD CASTAÑEDA Date of : 1945 Performing Physician: Finesse Cortez MD INDICATIONS altered mental status, copd CONCLUSIONS ------- ---- 1. This was a technically difficult study with suboptimal views. 2. Overall left ventri cular systolic function is normal with, an EF between 60 - 65 %. 3. Mild mitral annular calc ification present. FINDINGS -------- ECG rhythm: Resting tachycardia (HR>100bpm). Study: A limited 2-dimensional transthoracic echocardiogram with limited spectral and color flow Dopp ler was performed. Study: This was a technically difficult study with suboptimal views. Study: Patient in pain not able to hold still for echo. Left Ventricle: Overall left ventric ular systolic function is normal with, an EF between 60 - 65 %. Left Ventricle: The left ve ntricle cavity size is normal. Left Ventricle: Left ventricular wall thickness is normal. Left Ventricle: Cannot assess diastolic function due to tachycardia. Left Atrium: The left a trial size is normal. Right Atrium: The right atrial size is normal Right Atrium: , and the RA measures 3.7cm. Aortic Valve: The aortic valve was not well visualized. Aortic Valve: Th ere is no evidence of aortic regurgitation. Aortic Valve: There is no evidence of aortic st enosis. Mitral Valve: Mild mitral annular calcification present. Tricuspid Valve: The tricus pid valve was not well visualized. Tricuspid Valve: Trace tricuspid regurgitation present. Tricuspid Valve: Right ventricular systolic pressure (pulmonary artery systolic pressure) i s normal at < 35 mmHg. Pulmonic Valve: The pulmonic valve was not well visualized. Pericardi um: There is no pericardial effusion. IVC/Hepatic Veins: The IVC is normal size (1.5-2.5cm) and collapses <50% with sniff, consistent with central venous pressures of 10-15mmHg. MEASU REMENTS LA Major: 3.64 cm EDV(Teich): 78.10 ml IVSd: 0.86 cm LVIDd: 4. 18 cm LVPWd: 0.76 cm LVOT Diam: 1.94 cm %FS: 36.37 % EF(Teich): 66.49 % ESV(Teich): 26.16 ml IVSs: 1.14 cm LVIDs: 2.66 cm LVPWs: 1.14 cm SV(Teich): 51.93 ml RA Major: 3.67 cm IVC diameter: 2.38 cm IVC collapse: 1.58 cm IVC % collapse: 30.95 % HR: 1 31.95 BPM AV maxP.31 mmHg AV meanP.05 mmHg AV Vmax: 1.44 m/s AV Vmean: 1.08 m/s AV VTI: 23.26 cm SHABNAM Vmax: 3.14 cm2 SHABNAM (VTI): 2.90 cm2 LVCI Dopp: 4.57 l/minm2 LVCO Dopp: 7.95 l/min HR: 117.60 BPM LVOT maxP.36 mmHg LVOT meanP.28 mmHg LV SI Dopp: 38.87 ml/m2 LVSV Dopp: 67.64 ml LVOT Vmax: 1.52 m/s LVOT Vmean: 1.10 m/s LV OT VTI: 22.79 cm MV A Mark: 1.31 m/s MV DecT: 74.24 ms MV E Mark: 1.08 m/s MV E/A Rati o: 0.82 Septal e': 0.16 m/s Septal E/e': 6.57 Lateral e': 0.10 m/s Lateral E/e': 10.66 RAP: 10 mmHg RVSP: 33.88 mmHg TR maxP.88 mmHg TR Vmax: 2.44 m/s Sonogr apher: AB Authenticated by: Finesse Cortez MD Report Date/Time: 11-15-2013 18:08:31 11/15/2013 1. This was a technically difficult study with suboptimal views. 2. Overall left ventricular systolic function is normal with, an EF between 60 - 65 %. 3. Mild mitral annul ar calcification present. PROBLEM LIST Principal Problem: *Overdose of muscle relaxant Active Problems: Acute respiratory failure Metabolic acidosis Coma Alcohol intoxication Hypotension, unspecified ASSESSMENT & PLAN 1. Overdose on muscle relaxant with Flexeril and Tylenol, unknown quantity. The patient is still drowsy and confused. A CT scan of the head was negative except old infarct. Continue t he patient on supportive care. She already finished acetylcysteine IV and her most recent Ty lenol level is 3. Appreciate Dr. Moore input and will call him once the patient is medica lly stable. Will continue with the sitter at bedside. 2. Alcohol intoxication. Not sure if the patient is an alcoholic. Not going into withdrawal s as she is actively hallucinating and confused. Continue the patient on clinical institute withdrawal assessment protocol. 3. Aspiration pneumonia. Will continue the patient on Augmentin. 4. Hyperkalemia resolved. 5. Anemia. Will check complete iron panel, B12, folate. 6. DVT prophylaxis. Will start the patient on Lovenox. 7. FULL code. FRAN BARNES MD 11/16/2013 onversion Transactio n, Provider Unknown - 11/16/2013 2:22 PM PST Progress Notes by Kassidy Perez RN at 11/16/13 142 Author: Kassidy Perez RN Service: (none) Author Type: Registered Nurse Filed: 11/16/13 1423 Date of Service: 11/16/131421 Status: Signed Infrastructure Engineer: Kassidy Perez RN (Registered Nurse) Pt beginning to become more agitated and verbal. Dr. Barnes notified. Will move into room w/ o roommate for now. Will cont. to monitor. onver hiren Transaction, Provider Unknown - 11/16/2013 11:40 AM PST Progress Notes by Jana Taylor at 11/16/13 1140 Author: Jana Taylor Service: (none) Author Type: Registered Nurse Filed: 11/16/13 1140 Date of Service: 11/16/13 1140 Status: Signed Infrastructure Engineer: Jana Taylor Pt given to Kassidy MORAN on 3OP. Pt transferred via wheel chair. onver hiren Transaction, Provider Unknown - 11/16/2013 1:17 AM PST Nurse Progress Note by Sheryl Tomas RN at 11/16/13116 Author: Sheryl Tomas RN Service: (none) Author Type: Registered Nurse Filed: 11/16/13116 Date of Service: 11/16/13116 Status: Signed Infrastructure Engineer: Sheryl Tomas RN (Registered Nurse) Stopped Acetylcysteine drip per order. Sheryl Tomas RN iotr hesham Jana Osbornanne - 11/15/2013 4:28 PM PST Progress Notes by Jana Norris DO at 11/15/131627 Author: Jana Norris DO Service: (none) Author Type: Metalworking Instructor Filed: 11/15/131628 Date of Service: 11/15/131627 Status: Signed Infrastructure Engineer: Jana Norris DO (Metalworking Instructor) Pt was extubated this am and has been stable. Will transfer her to acute care. Psychiatrist has seen her and will need to see her again prior to d/c. Dr Barnes has accepted pt in trans ladan to the hospitalist service. onversion Transact ion, Provider Unknown - 11/15/2013 2:08 PM PSTFormatting of this note might be different fr om the original. Case Management by Kourtney Aldana RN at 11/15/131407 Author: Kourtney Aldana RN Service: (none) Author Type: Registered Nurse Filed: 11/15/131408 Date of Service: 11/15/131407 Status: Signed Infrastructure Engineer: Kourtney Aldana RN (Registered Nurse) Discussed psych consult with Dr. Norris. Received verbal order for psych consult. Notifi wilbert Flores RN, she will arrange for psych consult. When pt is stable for discharge, will need to call [facility] : [phone] to evalulate before disch arging pt. KOURTNEY ALDANA 11/15/2013 2:09 PM onver hiren Transaction, Provider Unknown - 11/15/2013 9:32 AM PST Progress Notes by Nick Jeffries RN at 11/15/13931 Author: Nick Jeffries RN Service: Wound/Ostomy Care Author Type: Registered Nurse Filed: 11/15/1334 Date of Service: 11/15/13931 Status: Signed Infrastructure Engineer: Nick Jeffries RN (Registered Nurse) Pt seen because of Joey score of 10. Per LUISA Dukes, pt has superficial abrasions to ne ck, but otherwise no skin breakdown issues. Please notify wound care if needed. onver hiren Transaction, Provider Unknown - 11/15/2013 5:57 AM PST Progress Notes by Mat Perez RPH at 11/15/13 0557 Author: Mat Perez RPH Service: (none) Author Type: Pharmacist Filed: 11/15/13 0557 Date of Service: 11/15/1357 Status: Signed Infrastructure Engineer: Mat Perez RPH (Pharmacist) Clinical Pharmacy Note: Renal Monitoring Ronald Koonel 68 y.o. female Ht Readings from Last 1 Encounters: No data found for Ht Wt Readings from Last 1 Encounters: 11/15/13 69.1 kg (152 lb 5.4 oz) CREATININE Date Value Range Status 11/15/2013 0.69 0.50 - 1.00 mg/dL Final Testing performed at [facility];[address] [place] [address];[place] [address] Creatinine clearance cannot be calculated - Unknown ideal weight. Pharmacy dosing for renal function per Dr. Acosta. Currently, there are no medications needing to be adjusted. Pharmacy will continue to monit or for changes in medication orders and in renal function and adjust accordingly. Mat Perez RPh 11/15/2013 5:57 AM onver hiren Transaction, Provider Unknown - 11/14/2013 6:57 PM PST Progress Notes by Roseline Sanon RN at 11/14/131856 Author: Roseline Sanon RN Service: (none) Author Type: Registered Nurse Filed: 11/15/131951 Date of Service: 11/14/131856 Status: Signed Infrastructure Engineer: Roseline Sanon RN (Registered Nurse) Pt arrived [facility] from [facility]. No report called from [place] a nd minimal report received Via [facility]. Pt transferred to bed, ventilator applied to exist ing ETT via RT. Obvious smell of ETOH emitting from PT. No cough, gag or corneals noted. second shift supervisor RN Gayle in room to assume care of pt. ROSELINE SANON 11/14/131856 docume nted in this encounter Plan of Treatment +--------+---------+ + + + | Date | Type | Specialty | Care Team | Description | +--------+---------+ + + + | 10/15/ | Office | Pain Medicine | Dneys Sibley, | | | 2018 | Visit | | DO [address] | | | | | | [place] | | | | | | [id number] | | | | | | | | +--------+---------+ + + + documented as of this encounter Procedures + +--------+ + + + | Procedure Name | Priori | Date/Time | Associated Diagnosis | Comments | | | ty | | | | + +--------+ + + + | HISTORICAL | Timed | 11/19/2013 | | Results for this | | MICROBIOLOGY RESULT | | 7:03 AM | | procedure are in the | | | | PST | | results section. | + +--------+ + + + | EXTERNAL LAB: CBC | Routin | 11/19/2013 | | Results for this | | | e | 4:25 AM | | procedure are in the | | | | PST | | results section. | + +--------+ + + + | PHOSPHORUS | Routin | 11/19/2013 | | Results for this | | | e | 4:25 AM | | procedure are in the | | | | PST | | results section. | + +--------+ + + + | MAGNESIUM | Routin | 11/19/2013 | | Results for this | | | e | 4:25 AM | | procedure are in the | | | | PST | | results section. | + +--------+ + + + | BASIC METABOLIC | Routin | 11/19/2013 | | Results for this | | PANEL | e | 4:25 AM | | procedure are in the | | | | PST | | results section. | + +--------+ + + + | EXTERNAL LAB: OCCULT | Routin | 11/19/2013 | | Results for this | | BLOOD, SCREENING | e | 1:46 AM | | procedure are in the | | | | PST | | results section. | + +--------+ + + + | XR LUMBAR SPINE 2 OR | Routin | 11/18/2013 | | Results for this | | 3 VW | e | 4:56 PM | | procedure are in the | | | | PST | | results section. | + +--------+ + + + | XR HIP BILATERAL 2 | Routin | 11/18/2013 | | Results for this | | VIEWS | e | 4:56 PM | | procedure are in the | | | | PST | | results section. | + +--------+ + + + | EXTERNAL LAB: CBC | Routin | 11/18/2013 | | Results for this | | | e | 6:00 AM | | procedure are in the | | | | PST | | results section. | + +--------+ + + + | TSH | Routin | 11/18/2013 | | Results for this | | | e | 6:00 AM | | procedure are in the | | | | PST | | results section. | + +--------+ + + + | PHOSPHORUS | Routin | 11/18/2013 | | Results for this | | | e | 6:00 AM | | procedure are in the | | | | PST | | results section. | + +--------+ + + + | MAGNESIUM | Routin | 11/18/2013 | | Results for this | | | e | 6:00 AM | | procedure are in the | | | | PST | | results section. | + +--------+ + + + | BASIC METABOLIC | Routin | 11/18/2013 | | Results for this | | PANEL | e | 6:00 AM | | procedure are in the | | | | PST | | results section. | + +--------+ + + + | GRAM STAIN, REFLEX | Timed | 11/17/2013 | | Results for this | | SPUTUM CULTURE | | 11:53 AM | | procedure are in the | | | | PST | | results section. | + +--------+ + + + | CULTURE, BLOOD, 2ND | Timed | 11/17/2013 | | Results for this | | SPECIMEN (NON-ORD) | | 10:50 AM | | procedure are in the | | | | PST | | results section. | + +--------+ + + + | CULTURE, BLOOD | Timed | 11/17/2013 | | Results for this | | | | 10:42 AM | | procedure are in the | | | | PST | | results section. | + +--------+ + + + | CULTURE, URINE | Routin | 11/17/2013 | | Results for this | | | e | 10:13 AM | | procedure are in the | | | | PST | | results section. | + +--------+ + + + | EXTERNAL LAB: CBC | Routin | 11/17/2013 | | Results for this | | | e | 5:57 AM | | procedure are in the | | | | PST | | results section. | + +--------+ + + + | IRON AND IRON | Routin | 11/17/2013 | | Results for this | | BINDING CAPACITY | e | 5:57 AM | | procedure are in the | | | | PST | | results section. | + +--------+ + + + | VITAMIN B-12 | Routin | 11/17/2013 | | Results for this | | | e | 5:57 AM | | procedure are in the | | | | PST | | results section. | + +--------+ + + + | FOLATE | Routin | 11/17/2013 | | Results for this | | | e | 5:57 AM | | procedure are in the | | | | PST | | results section. | + +--------+ + + + | FERRITIN | Routin | 11/17/2013 | | Results for this | | | e | 5:57 AM | | procedure are in the | | | | PST | | results section. | + +--------+ + + + | COMPREHENSIVE | Routin | 11/17/2013 | | Results for this | | METABOLIC PANEL | e | 5:57 AM | | procedure are in the | | | | PST | | results section. | + +--------+ + + + | POTASSIUM | Routin | 11/16/2013 | | Results for this | | | e | 11:12 AM | | procedure are in the | | | | PST | | results section. | + +--------+ + + + | CULTURE, URINE | Routin | 11/16/2013 | | Results for this | | | e | 9:51 AM | | procedure are in the | | | | PST | | results section. | + +--------+ + + + | ACETAMINOPHEN LEVEL | Routin | 11/16/2013 | | Results for this | | | e | 7:55 AM | | procedure are in the | | | | PST | | results section. | + +--------+ + + + | XR CHEST 1 VIEW | Routin | 11/16/2013 | | Results for this | | | e | 6:21 AM | | procedure are in the | | | | PST | | results section. | + +--------+ + + + | EXTERNAL LAB: CBC | Routin | 11/16/2013 | | Results for this | | | e | 4:07 AM | | procedure are in the | | | | PST | | results section. | + +--------+ + + + | PHOSPHORUS | Routin | 11/16/2013 | | Results for this | | | e | 4:07 AM | | procedure are in the | | | | PST | | results section. | + +--------+ + + + | MAGNESIUM | Routin | 11/16/2013 | | Results for this | | | e | 4:07 AM | | procedure are in the | | | | PST | | results section. | + +--------+ + + + | ACETAMINOPHEN LEVEL | Routin | 11/16/2013 | | Results for this | | | e | 4:07 AM | | procedure are in the | | | | PST | | results section. | + +--------+ + + + | BASIC METABOLIC | Routin | 11/16/2013 | | Results for this | | PANEL | e | 4:07 AM | | procedure are in the | | | | PST | | results section. | + +--------+ + + + | ACETAMINOPHEN LEVEL | Routin | 11/16/2013 | | Results for this | | | e | 12:36 AM | | procedure are in the | | | | PST | | results section. | + +--------+ + + + | TROPONIN I | Routin | 11/15/2013 | | Results for this | | | e | 4:02 PM | | procedure are in the | | | | PST | | results section. | + +--------+ + + + | CK-MB | Routin | 11/15/2013 | | Results for this | | | e | 4:02 PM | | procedure are in the | | | | PST | | results section. | + +--------+ + + + | CK TOTAL | Routin | 11/15/2013 | | Results for this | | | e | 4:02 PM | | procedure are in the | | | | PST | | results section. | + +--------+ + + + | ACETAMINOPHEN LEVEL | Routin | 11/15/2013 | | Results for this | | | e | 4:02 PM | | procedure are in the | | | | PST | | results section. | + +--------+ + + + | ECHO LIMITED | Routin | 11/15/2013 | | Results for this | | | e | 2:33 PM | | procedure are in the | | | | PST | | results section. | + +--------+ + + + | ACETAMINOPHEN LEVEL | Routin | 11/15/2013 | | Results for this | | | e | 11:32 AM | | procedure are in the | | | | PST | | results section. | + +--------+ + + + | BASIC METABOLIC | Routin | 11/15/2013 | | Results for this | | PANEL | e | 11:32 AM | | procedure are in the | | | | PST | | results section. | + +--------+ + + + | TROPONIN I | Routin | 11/15/2013 | | Results for this | | | e | 8:51 AM | | procedure are in the | | | | PST | | results section. | + +--------+ + + + | CK-MB | Routin | 11/15/2013 | | Results for this | | | e | 8:51 AM | | procedure are in the | | | | PST | | results section. | + +--------+ + + + | CK TOTAL | Routin | 11/15/2013 | | Results for this | | | e | 8:51 AM | | procedure are in the | | | | PST | | results section. | + +--------+ + + + | ACETAMINOPHEN LEVEL | Routin | 11/15/2013 | | Results for this | | | e | 8:51 AM | | procedure are in the | | | | PST | | results section. | + +--------+ + + + | XR CHEST 1 VIEW | Routin | 11/15/2013 | | Results for this | | | e | 6:08 AM | | procedure are in the | | | | PST | | results section. | + +--------+ + + + | LACTIC ACID | Routin | 11/15/2013 | | Results for this | | | e | 5:32 AM | | procedure are in the | | | | PST | | results section. | + +--------+ + + + | EXTERNAL LAB: CBC | Routin | 11/15/2013 | | Results for this | | | e | 4:08 AM | | procedure are in the | | | | PST | | results section. | + +--------+ + + + | TROPONIN I | Routin | 11/15/2013 | | Results for this | | | e | 4:08 AM | | procedure are in the | | | | PST | | results section. | + +--------+ + + + | CK-MB | Routin | 11/15/2013 | | Results for this | | | e | 4:08 AM | | procedure are in the | | | | PST | | results section. | + +--------+ + + + | OSMOLALITY, SERUM | Routin | 11/15/2013 | | Results for this | | | e | 4:08 AM | | procedure are in the | | | | PST | | results section. | + +--------+ + + + | CK TOTAL | Routin | 11/15/2013 | | Results for this | | | e | 4:08 AM | | procedure are in the | | | | PST | | results section. | + +--------+ + + + | ACETAMINOPHEN LEVEL | Routin | 11/15/2013 | | Results for this | | | e | 4:08 AM | | procedure are in the | | | | PST | | results section. | + +--------+ + + + | COMPREHENSIVE | Routin | 11/15/2013 | | Results for this | | METABOLIC PANEL | e | 4:08 AM | | procedure are in the | | | | PST | | results section. | + +--------+ + + + | POC GLUCOSE | Routin | 11/15/2013 | | Results for this | | | e | 12:33 AM | | procedure are in the | | | | PST | | results section. | + +--------+ + + + | POC CG 4, ISTAT | Routin | 11/14/2013 | | Results for this | | ARTERIAL | e | 11:47 PM | | procedure are in the | | | | PST | | results section. | + +--------+ + + + | XR CHEST 1 VIEW | Routin | 11/14/2013 | | Results for this | | | e | 11:33 PM | | procedure are in the | | | | PST | | results section. | + +--------+ + + + | LACTIC ACID | Routin | 11/14/2013 | | Results for this | | | e | 9:17 PM | | procedure are in the | | | | PST | | results section. | + +--------+ + + + | CALCIUM, IONIZED | Routin | 11/14/2013 | | Results for this | | | e | 9:15 PM | | procedure are in the | | | | PST | | results section. | + +--------+ + + + | EXTERNAL LAB: CBC | Routin | 11/14/2013 | | Results for this | | | e | 9:13 PM | | procedure are in the | | | | PST | | results section. | + +--------+ + + + | PTT | Routin | 11/14/2013 | | Results for this | | | e | 9:13 PM | | procedure are in the | | | | PST | | results section. | + +--------+ + + + | PROTIME INR | Routin | 11/14/2013 | | Results for this | | | e | 9:13 PM | | procedure are in the | | | | PST | | results section. | + +--------+ + + + | PHOSPHORUS | Routin | 11/14/2013 | | Results for this | | | e | 9:13 PM | | procedure are in the | | | | PST | | results section. | + +--------+ + + + | MAGNESIUM | Routin | 11/14/2013 | | Results for this | | | e | 9:13 PM | | procedure are in the | | | | PST | | results section. | + +--------+ + + + | ACETAMINOPHEN LEVEL | Routin | 11/14/2013 | | Results for this | | | e | 9:13 PM | | procedure are in the | | | | PST | | results section. | + +--------+ + + + | HEPATIC FUNCTION | Routin | 11/14/2013 | | Results for this | | PANEL | e | 9:13 PM | | procedure are in the | | | | PST | | results section. | + +--------+ + + + | BASIC METABOLIC | Routin | 11/14/2013 | | Results for this | | PANEL | e | 9:13 PM | | procedure are in the | | | | PST | | results section. | + +--------+ + + + | CT HEAD WO CONTRAST | Routin | 11/14/2013 | | Results for this | | | e | 8:58 PM | | procedure are in the | | | | PST | | results section. | + +--------+ + + + | XR CHEST 1 VIEW | Routin | 11/14/2013 | | Results for this | | | e | 8:56 PM | | procedure are in the | | | | PST | | results section. | + +--------+ + + + | GRAM STAIN, REFLEX | Timed | 11/14/2013 | | Results for this | | SPUTUM CULTURE | | 8:55 PM | | procedure are in the | | | | PST | | results section. | + +--------+ + + + | MRSA NAAT | Routin | 11/14/2013 | | Results for this | | | e | 7:30 PM | | procedure are in the | | | | PST | | results section. | + +--------+ + + + | URINALYSIS WITH | Routin | 11/14/2013 | | Results for this | | MICROSCOPIC IF | e | 7:30 PM | | procedure are in the | | INDICATED | | PST | | results section. | + +--------+ + + + | URINALYSIS, | Routin | 11/14/2013 | | Results for this | | MICROSCOPIC ONLY | e | 7:30 PM | | procedure are in the | | | | PST | | results section. | + +--------+ + + + | POC GLUCOSE | Routin | 11/14/2013 | | Results for this | | | e | 7:20 PM | | procedure are in the | | | | PST | | results section. | + +--------+ + + + documented in this encounter Results HISTORICAL MICROBIOLOGY RESULT (11/19/2013 7:03 AM PST) + + | Specimen | + + | Stool specimen | | (specimen) | + + + + + | Narrative | Performed At | + + + | Toxigenic C Difficile NEGATIVE Testing | EXTERNAL LAB | | performed at [facility];[address] [place] [address];[place] [address] 027 NAP1 BI | | | 027 NAP1 BI PRESUMPTIVE NEGATIVE | | | Detection of 027 NAP1 BI strains of C. difficile is presumptive and | | | for epidemiological purposes and not intended to guide or monitor | | | treatment for C. difficile infections. Testing performed at [facility];[address] | | [facility];[place] [address] | | + + + + +---------+ + + | Performing | Address | City/State/Zipcode | Phone Number | | Organization | | | | + +---------+ + + | EXTERNAL LAB | | | | + +---------+ + + External Lab: SAMARIA (11/19/2013 4:25 AM PST) + + + + + + | Component | Value | Ref Range | Performed | Pathologist | | | | | At | Signature | + + + + + + | WBC | 5.6Comment: Testing | 3.8 - 11.0 K/uL | EXTERNAL | | | | performed at [facility], [address] | | LAB | | | | [address], | | | | | | [place] [address] | | | | + + + + + + | RED CELL | 3.85Comment: Testing | 3.70 - 5.10 | EXTERNAL | | | COUNT | performed at [facility], [address] | M/uL | LAB | | | | [address], | | | | | | [place] [address] | | | | + + + + + + | Hgb | 10.7 (L)Comment: Testing | 11.3 - 15.5 | EXTERNAL | | | | performed at [facility], [address] | g/dL | LAB | | | | [address], | | | | | | [place] [address] | | | | + + + + + + | Hematocrit, | 32.8 (L)Comment: Testing | 34.0 - 46.0 % | EXTERNAL | | | POC | performed at [facility], [address] | | LAB | | | | [address], | | | | | | [place] [address] | | | | + + + + + + | MCV | 85.2Comment: Testing | 80.0 - 100.0 fl | EXTERNAL | | | | performed at [facility], [address] | | LAB | | | | [address], | | | | | | [place] [address] | | | | + + + + + + | MCH | 27.8Comment: Testing | 27.0 - 34.0 pg | EXTERNAL | | | | performed at [facility], [address] | | LAB | | | | [address], | | | | | | [place] [address] | | | | + + + + + + | MCHC | 32.6Comment: Testing | 32.0 - 35.5 | EXTERNAL | | | | performed at [facility], [address] | g/dL | LAB | | | | [address], | | | | | | [place] [address] | | | | + + + + + + | RDW-CV | 38.1Comment: Testing | 37 - 53 fl | EXTERNAL | | | | performed at [facility], [address] | | LAB | | | | [address], | | | | | | [place] [address] | | | | + + + + + + | Platelet | 222Comment: Testing | 150 - 400 K/uL | EXTERNAL | | | Count | performed at [facility], [address] | | LAB | | | Plasma | [address], | | | | | | [place] [address] | | | | + + + + + + | MPV | 7.8Comment: Testing | fl | EXTERNAL | | | | performed at [facility], [address] | | LAB | | | | [address], | | | | | | [place] [address] | | | | + + + + + + | Differentia | AUTOMATEDComment: | | EXTERNAL | | | l Type | Testing performed at | | LAB | | | | [facility], [address] | | | | | | [address], [place], [place] | | | | | | [address] | | | | + + + + + + | % Segmented | 67.1 | % | EXTERNAL | | | | | | LAB | | | Neutrophils | | | | | + + + + + + | % | 21.3 | % | EXTERNAL | | | Lymphocytes | | | LAB | | + + + + + + | % Monocytes | 8.2 | % | EXTERNAL | | | | | | LAB | | + + + + + + | % | 3.0 | % | EXTERNAL | | | Eosinophils | | | LAB | | + + + + + + | % Basophils | 0.4 | % | EXTERNAL | | | | | | LAB | | + + + + + + | Absolute | 3.8 | 1.9 - 7.4 K/uL | EXTERNAL | | | Segmented | | | LAB | | | Neutrophils | | | | | + + + + + + | Absolute | 1.2 | 1.0 - 3.9 K/uL | EXTERNAL | | | Lymphocytes | | | LAB | | + + + + + + | Absolute | 0.5 | 0 - 0.8 K/uL | EXTERNAL | | | Monocytes | | | LAB | | + + + + + + | Absolute | 0.2 | 0 - 0.5 K/uL | EXTERNAL | | | Eosinophils | | | LAB | | + + + + + + | Absolute | 0.0 | 0 - 0.1 K/uL | EXTERNAL | | | Basophils | | | LAB | | + + + + + + | RBC | Comment: 1+ Hypochromia | | EXTERNAL | | | Morphology | | | LAB | | + + + + + + + + | Specimen | + + | Blood specimen | | (specimen) | + + + +---------+ + + | Performing | Address | City/State/Zipcode | Phone Number | | Organization | | | | + +---------+ + + | EXTERNAL LAB | | | | + +---------+ + + Phosphorus (11/19/2013 4:25 AM PST) + + + + + + | Component | Value | Ref Range | Performed | Pathologist | | | | | At | Signature | + + + + + + | PHOSPHORUS | 4.0Comment: Testing | 2.3 - 4.8 mg/dL | EXTERNAL | | | | performed at [facility], [address] | | LAB | | | | [address], | | | | | | [place] [address] | | | | + + + + + + + + | Specimen | + + | | + + + +---------+ + + | Performing | Address | City/State/Zipcode | Phone Number | | Organization | | | | + +---------+ + + | EXTERNAL LAB | | | | + +---------+ + + Magnesium (11/19/2013 4:25 AM PST) + + + + + + | Component | Value | Ref Range | Performed | Pathologist | | | | | At | Signature | + + + + + + | Magnesium | 2.2Comment: Testing | 1.7 - 2.4 mg/dL | EXTERNAL | | | | performed at [facility], [address] | | LAB | | | | [address], | | | | | | [place] [address] | | | | + + + + + + + + | Specimen | + + | | + + + +---------+ + + | Performing | Address | City/State/Zipcode | Phone Number | | Organization | | | | + +---------+ + + | EXTERNAL LAB | | | | + +---------+ + + Basic Metabolic Panel (11/19/2013 4:25 AM PST) + + + + + + | Component | Value | Ref Range | Performed | Pathologist | | | | | At | Signature | + + + + + + | Na | 133 (L)Comment: Testing | 135 - 143 | EXTERNAL | | | | performed at [facility], [address] | mmol/L | LAB | | | | [address], | | | | | | [place] [address] | | | | + + + + + + | K | 3.9Comment: Testing | 3.5 - 4.9 | EXTERNAL | | | | performed at [facility], [address] | mmol/L | LAB | | | | [address], | | | | | | [place] [address] | | | | + + + + + + | Cl | 101Comment: Testing | 99 - 109 mmol/L | EXTERNAL | | | | performed at [facility], [address] | | LAB | | | | [address], | | | | | | [place] [address] | | | | + + + + + + | CO2 | 24Comment: Testing | 23 - 32 mmol/L | EXTERNAL | | | | performed at [facility], [address] | | LAB | | | | [address], | | | | | | [place] [address] | | | | + + + + + + | Anion Gap | 12Comment: Testing | 5 - 20 mmol/L | EXTERNAL | | | | performed at [facility], [address] | | LAB | | | | [address], | | | | | | [place] [address] | | | | + + + + + + | Glucose, | 108 (H)Comment: Testing | 65 - 99 mg/dL | EXTERNAL | | | Fasting | performed at [facility], [address] | | LAB | | | | [address], | | | | | | [place] [address] | | | | + + + + + + | BUN | 12Comment: Testing | 8 - 25 mg/dL | EXTERNAL | | | | performed at [facility], [address] | | LAB | | | | [address], | | | | | | [place] [address] | | | | + + + + + + | Creatinine | 0.80Comment: Testing | 0.50 - 1.00 | EXTERNAL | | | | performed at [facility], [address] | mg/dL | LAB | | | | [address], | | | | | | [place] [address] | | | | + + + + + + | BUN/Creatin | 15Comment: Testing | | EXTERNAL | | | ine Ratio | performed at [facility], [address] | | LAB | | | | [address], | | | | | | [place] [address] | | | | + + + + + + | Calcium | 9.2Comment: Testing | 8.5 - 10.2 | EXTERNAL | | | | performed at [facility], [address] | mg/dL | LAB | | | | [address], | | | | | | [place] [address] | | | | + + + [...] | | | | | | at [facility], [address] | | | | | | [address], | | | | | | [place] [address] | | | | + + + + + + + + | Specimen | + + | Blood specimen | | (specimen) | + + + +---------+ + + | Performing | Address | City/State/Zipcode | Phone Number | | Organization | | | | + +---------+ + + | EXTERNAL LAB | | | | + +---------+ + + External Lab: Occult Blood, Screening (11/19/2013 1:46 AM PST) + + | Specimen | + + | Stool specimen | | (specimen) | + + + + + | Narrative | Performed At | + + + | Fecal Occult Blood NEGATIVE Testing | EXTERNAL LAB | | performed at [facility];[address] [facility];[place] [address] | | + + + + +---------+ + + | Performing | Address | City/State/Zipcode | Phone Number | | Organization | | | | + +---------+ + + | EXTERNAL LAB | | | | + +---------+ + + XR Lumbar Spine 2 or 3 Vw (11/18/2013 4:56 PM PST) + + | Specimen | + + | | + + + + + | Impressions | Performed At | + + + | 1. No evidence of fracture or subluxation. 2. Levoconvex | | | curvature of the lumbar spine Salguero angle = 22.5? 3. Diffuse | | | osteopenia correlate with DEXA. | | + + + + + + | Narrative | Performed At | + + + | [facility]ONAL[facility] DOHERTYFAWTHROP XR LUMBAR SPINE LIMITED 2-3 VIEW 11/18/2013 | | | 4:56 PM HISTORY: 68 years. Female. Back pain TECHNIQUE: | | | XR LUMBAR SPINE LIMITED 2-3 VIEW. Frontal, lateral, cone-down. Total | | | of 3 images obtained. COMPARISON: None. FINDINGS: | | | Levoconvex curvature of the lumbar spine. Salguero angle = 22.5?. There | | | appears be diffuse osteopenia but there is no compression fractures. | | | No subluxation. Foramen appear patent. Degenerative changes with facet | | | hypertrophy most prominent at the L5-S1 level. | | + + + + + | Procedure Note | + + | Junior, Rad Conversion - 06/15/2019 1:42 PM PDT RONAL[facility] DOHERTYFAWTHROPXR LUMBAR SPINE | | LIMITED 2-3 VIEW11/18/2013 4:56 PM HISTORY:68 years. Female. Back pain TECHNIQUE:XR | | LUMBAR SPINE LIMITED 2-3 VIEW. Frontal, lateral, cone-down. Total of 3 images | | obtained. COMPARISON:None. FINDINGS:Levoconvex curvature of the lumbar spine. Salguero angle | | = 22.5?. There appears be diffuse osteopenia but there is no compression fractures. No | | subluxation. Foramen appear patent. Degenerative changes with facet hypertrophy most | | prominent at the L5-S1 level. IMPRESSION: 1. No evidence of fracture or subluxation.2. | | Levoconvex curvature of the lumbar spine Salguero angle = 22.5?3. Diffuse osteopenia | | correlate with DEXA. | | PM | |COMPARISON: | |None. | | | |FINDINGS: | |Levoconvex curvature of the lumbar spine. Salguero angle = 22.5?. There appears be diffuse oste openia but there is no compression fractures. No subluxation. Foramen appear patent. Degener ative changes with facet | |hypertrophy most prominent at the L5-S1 level. | | | |IMPRESSION: | |1. No evidence of fracture or subluxation. | |2. Levoconvex curvature of the lumbar spine Salguero angle = 22.5? | |3. Diffuse osteopenia correlate with DEXA. | | | | | | | | | + + XR Hip Bilateral 2 Views (11/18/2013 4:56 PM PST) + + | Specimen | + + | | + + + + + | Impressions | Performed At | + + + | 1. No evidence of fracture or dislocation of either left or right | | | hip. Electronically signed by Hang Torre MD on | | | 11/18/2013 7:39 PM | | + + + + + + | Narrative | Performed At | + + + | RONALD BRENDATYFAWTHROP XR HIPS BILATERAL 11/18/2013 4:56 PM | | | HISTORY: 68 years. Female. Bilateral hip pain no history of | | | trauma but the patient has altered mental status TECHNIQUE: XR | | | HIPS BILATERAL. Frontal, left and right frog-leg lateral views of the | | | hips. 3 Total of 3 images obtained. COMPARISON: None. | | | FINDINGS: Bony pelvic ring is intact. Hips are symmetric in | | | appearance. Femoral heads are round and smooth. Femoral neck and | | | proximal femoral shaft are normal. No significant degenerative changes | | | of the hips. No erosive lesions. | | + + + + + | Procedure Note | + + | Junior, Rad Conversion - 06/15/2019 1:42 PM PDT RONALD GUTIERREZTYFAWTHROPXR HIPS | | BILATERAL11/18/2013 4:56 PM HISTORY:68 years. Female. Bilateral hip pain no history of | | trauma but the patient has altered mental status TECHNIQUE:XR HIPS BILATERAL. Frontal, | | left and right frog-leg lateral views of the hips. 3 Total of 3 images obtained. | | COMPARISON:None. FINDINGS:Bony pelvic ring is intact. Hips are symmetric in appearance. | | Femoral heads are round and smooth. Femoral neck and proximal femoral shaft are normal. | | No significant degenerative changes of the hips. No erosive lesions. IMPRESSION: 1. No | | evidence of fracture or dislocation of either left or right hip. | | | |COMPARISON: | |None. | | | |FINDINGS: | |Bony pelvic ring is intact. Hips are symmetric in appearance. Femoral heads are round and s mooth. Femoral neck and proximal femoral shaft are normal. No significant degenerative knight es of the hips. No erosive lesions. | | | |IMPRESSION: | |1. No evidence of fracture or dislocation of either left or right hip. | | | | | | | | | + + External Lab: SAMARIA (11/18/2013 6:00 AM PST) + + + + + + | Component | Value | Ref Range | Performed | Pathologist | | | | | At | Signature | + + + + + + | WBC | 8.7Comment: Testing | 3.8 - 11.0 K/uL | EXTERNAL | | | | performed at [facility], [address] | | LAB | | | | [address], | | | | | | [place] [address] | | | | + + + + + + | RED CELL | 3.77Comment: Testing | 3.70 - 5.10 | EXTERNAL | | | COUNT | performed at [facility], [address] | M/uL | LAB | | | | [address], | | | | | | [place] [address] | | | | + + + + + + | Hgb | 10.8 (L)Comment: Testing | 11.3 - 15.5 | EXTERNAL | | | | performed at [facility], [address] | g/dL | LAB | | | | [address], | | | | | | [place] [address] | | | | + + + + + + | Hematocrit, | 31.9 (L)Comment: Testing | 34.0 - 46.0 % | EXTERNAL | | | POC | performed at [facility], [address] | | LAB | | | | [address], | | | | | | [place] [address] | | | | + + + + + + | MCV | 84.8Comment: Testing | 80.0 - 100.0 fl | EXTERNAL | | | | performed at [facility], [address] | | LAB | | | | [address], | | | | | | [place] [address] | | | | + + + + + + | MCH | 28.8Comment: Testing | 27.0 - 34.0 pg | EXTERNAL | | | | performed at [facility], [address] | | LAB | | | | [address], | | | | | | [place] [address] | | | | + + + + + + | MCHC | 33.9Comment: Testing | 32.0 - 35.5 | EXTERNAL | | | | performed at [facility], [address] | g/dL | LAB | | | | [address], | | | | | | [place] [address] | | | | + + + + + + | RDW-CV | 37.6Comment: Testing | 37 - 53 fl | EXTERNAL | | | | performed at [facility], [address] | | LAB | | | | [address], | | | | | | [place] [address] | | | | + + + + + + | Platelet | 183Comment: Testing | 150 - 400 K/uL | EXTERNAL | | | Count | performed at [facility], [address] | | LAB | | | Plasma | [address], | | | | | | [place] [address] | | | | + + + + + + | MPV | 7.9Comment: Testing | fl | EXTERNAL | | | | performed at [facility], [address] | | LAB | | | | [address], | | | | | | [place] [address] | | | | + + + + + + | Differentia | AUTOMATEDComment: | | EXTERNAL | | | l Type | Testing performed at | | LAB | | | | [facility], [address] | | | | | | [place] | | | | | | [address] | | | | + + + + + + | % Segmented | 63.0 | % | EXTERNAL | | | | | | LAB | | | Neutrophils | | | | | + + + + + + | % | 30.6 | % | EXTERNAL | | | Lymphocytes | | | LAB | | + + + + + + | % Monocytes | 4.7 | % | EXTERNAL | | | | | | LAB | | + + + + + + | % | 1.4 | % | EXTERNAL | | | Eosinophils | | | LAB | | + + + + + + | % Basophils | 0.3 | % | EXTERNAL | | | | | | LAB | | + + + + + + | Absolute | 5.5 | 1.9 - 7.4 K/uL | EXTERNAL | | | Segmented | | | LAB | | | Neutrophils | | | | | + + + + + + | Absolute | 2.7 | 1.0 - 3.9 K/uL | EXTERNAL | | | Lymphocytes | | | LAB | | + + + + + + | Absolute | 0.4 | 0 - 0.8 K/uL | EXTERNAL | | | Monocytes | | | LAB | | + + + + + + | Absolute | 0.1 | 0 - 0.5 K/uL | EXTERNAL | | | Eosinophils | | | LAB | | + + + + + + | Absolute | 0.0 | 0 - 0.1 K/uL | EXTERNAL | | | Basophils | | | LAB | | + + + + + + + + | Specimen | + + | Blood specimen | | (specimen) | + + + +---------+ + + | Performing | Address | City/State/Zipcode | Phone Number | | Organization | | | | + +---------+ + + | EXTERNAL LAB | | | | + +---------+ + + TSH (11/18/2013 6:00 AM PST) + + + + + + | Component | Value | Ref Range | Performed | Pathologist | | | | | At | Signature | + + + + + + | TSI | 4.28Comment: Testing | 0.45 - 5.10 | EXTERNAL | | | | performed at [facility], [address] | uIU/mL | LAB | | | | [address], | | | | | | [place] [address] | | | | + + + + + + + + | Specimen | + + | Blood specimen | | (specimen) | + + + +---------+ + + | Performing | Address | City/State/Zipcode | Phone Number | | Organization | | | | + +---------+ + + | EXTERNAL LAB | | | | + +---------+ + + Phosphorus (11/18/2013 6:00 AM PST) + + + + + + | Component | Value | Ref Range | Performed | Pathologist | | | | | At | Signature | + + + + + + | PHOSPHORUS | 3.8Comment: Testing | 2.3 - 4.8 mg/dL | EXTERNAL | | | | performed at [facility], [address] | | LAB | | | | [facility], | | | | | | [place] [address] | | | | + + + + + + + + | Specimen | + + | Blood specimen | | (specimen) | + + + +---------+ + + | Performing | Address | City/State/Zipcode | Phone Number | | Organization | | | | + +---------+ + + | EXTERNAL LAB | | | | + +---------+ + + Magnesium (11/18/2013 6:00 AM PST) + + + + + + | Component | Value | Ref Range | Performed | Pathologist | | | | | At | Signature | + + + + + + | Magnesium | 2.1Comment: Testing | 1.7 - 2.4 mg/dL | EXTERNAL | | | | performed at [facility], [address] | | LAB | | | | [address], | | | | | | [place] [address] | | | | + + + + + + + + | Specimen | + + | Blood specimen | | (specimen) | + + + +---------+ + + | Performing | Address | City/State/Zipcode | Phone Number | | Organization | | | | + +---------+ + + | EXTERNAL LAB | | | | + +---------+ + + Basic Metabolic Panel (11/18/2013 6:00 AM PST) + + + + + + | Component | Value | Ref Range | Performed | Pathologist | | | | | At | Signature | + + + + + + | Na | 135Comment: Testing | 135 - 143 | EXTERNAL | | | | performed at [facility], [address] | mmol/L | LAB | | | | [address], | | | | | | [place] [address] | | | | + + + + + + | K | 4.2Comment: Testing | 3.5 - 4.9 | EXTERNAL | | | | performed at [facility], [address] | mmol/L | LAB | | | | [address], | | | | | | [place] [address] | | | | + + + + + + | Cl | 104Comment: Testing | 99 - 109 mmol/L | EXTERNAL | | | | performed at [facility], [address] | | LAB | | | | [address], | | | | | | [place] [address] | | | | + + + + + + | CO2 | 24Comment: Testing | 23 - 32 mmol/L | EXTERNAL | | | | performed at [facility], [address] | | LAB | | | | [address], | | | | | | [place] [address] | | | | + + + + + + | Anion Gap | 11Comment: Testing | 5 - 20 mmol/L | EXTERNAL | | | | performed at [facility], [address] | | LAB | | | | [address], | | | | | | [place] [address] | | | | + + + + + + | Glucose, | 110 (H)Comment: Testing | 65 - 99 mg/dL | EXTERNAL | | | Fasting | performed at [facility], [address] | | LAB | | | | [address], | | | | | | [place] [address] | | | | + + + + + + | BUN | 11Comment: Testing | 8 - 25 mg/dL | EXTERNAL | | | | performed at [facility], [address] | | LAB | | | | [address], | | | | | | [place] [address] | | | | + + + + + + | Creatinine | 0.73Comment: Testing | 0.50 - 1.00 | EXTERNAL | | | | performed at [facility], [address] | mg/dL | LAB | | | | [address], | | | | | | [place] [address] | | | | + + + + + + | BUN/Creatin | 15Comment: Testing | | EXTERNAL | | | ine Ratio | performed at [facility], [address] | | LAB | | | | [address], | | | | | | [place] [address] | | | | + + + + + + | Calcium | 9.0Comment: Testing | 8.5 - 10.2 | EXTERNAL | | | | performed at [facility], [address] | mg/dL | LAB | | | | [address], | | | | | | [place] [address] | | | | + + + [...] | | | | | | at [facility], [address] | | | | | | [address], | | | | | | [place] [address] | | | | + + + + + + + + | Specimen | + + | Blood specimen | | (specimen) | + + + +---------+ + + | Performing | Address | City/State/Zipcode | Phone Number | | Organization | | | | + +---------+ + + | EXTERNAL LAB | | | | + +---------+ + + Gram Stain, reflex Sputum Culture (11/17/2013 11:53 AM PST) + + | Specimen | + + | Body fluid sample | | (specimen) | + + + + + | Narrative | Performed At | + + + | Specimen Description SPUTUM | EXTERNAL LAB | | Testing performed at [facility];[address] | | | [facility];[place] [address] GRAM STAIN | | | GREATER THAN 10 WBCS/LPF | | | LESS THAN 10 SEC/LPF | | | NO ORGANISMS SEEN | | | Testing performed at [facility], 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 + Sulbactam | | | SUSCEPTIBLESensitive Cefazolin | | | INTERMEDIATEIntermediate Cefepime | | | SUSCEPTIBLESensitive Cefoxitin | | | SUSCEPTIBLESensitive Ceftazidime | | | SUSCEPTIBLESensitive Ceftriaxone | | | SUSCEPTIBLESensitive Ciprofloxacin | | | SUSCEPTIBLESensitive Gentamicin | | | SUSCEPTIBLESensitive Piperacillin + Tazobactam | | | SUSCEPTIBLESensitive Tobramycin | | | SUSCEPTIBLESensitive Trimethoprim + | | | SulfamethoxazoleSUSCEPTIBLESensitive Levofloxacin | | | SUSCEPTIBLESensitive | | + + + + +---------+ + + | Performing | Address | City/State/Zipcode | Phone Number | | Organization | | | | + +---------+ + + | EXTERNAL LAB | | | | + +---------+ + + Culture, Blood, 2nd Specimen (11/17/2013 10:50 AM PST) + + | Specimen | + + | Blood specimen | | (specimen) | + + + + + | Narrative | Performed At | + + + | Specimen Description BLOOD | EXTERNAL LAB | | Testing performed at [facility];[address] | | | [facility];[place] [address] SPECIAL REQUESTS | | | PICC LINE | | | Testing performed at [facility];[address] [place] [address] CULTURE | | | NO GROWTH 6 DAYS | | | Testing performed at [facility], [address] | | | [place] [address] REPORT STATUS | | | 11/23/2013 FINAL | | + + + + +---------+ + + | Performing | Address | City/State/Zipcode | Phone Number | | Organization | | | | + +---------+ + + | EXTERNAL LAB | | | | + +---------+ + + Culture, Blood (11/17/2013 10:42 AM PST) + + | Specimen | + + | Blood specimen | | (specimen) | + + + + + | Narrative | Performed At | + + + | Specimen Description BLOOD | EXTERNAL LAB | | Testing performed at [facility];[address] | | | [facility];[place] [address] SPECIAL REQUESTS | | | REPEAT TEST USING ALTERNATE ASSAYED CONTROL MATERIAL | | | Testing performed at [facility];[address] | | | [address];[place] [address] CULTURE | | | NO GROWTH 6 DAYS | | | Testing performed at [facility], [address] [place], | | | [place] [address] REPORT STATUS 11/23/2013 | | | FINAL | | + + + + +---------+ + + | Performing | Address | City/State/Zipcode | Phone Number | | Organization | | | | + +---------+ + + | EXTERNAL LAB | | | | + +---------+ + + Culture, Urine (11/17/2013 10:13 AM PST) + + | Specimen | + + | Urine specimen | | (specimen) | + + + + + | Narrative | Performed At | + + + | Specimen Description CATHETERIZED URINE | EXTERNAL LAB | | Testing performed at | | | [facility];[address] [facility];[place] [address] CULTURE | | | NO GROWTH | | | Testing performed at [facility], [address] [facility], | | | [place] [address] REPORT STATUS | | | 11/18/2013 FINAL | | + + + + +---------+ + + | Performing | Address | City/State/Zipcode | Phone Number | | Organization | | | | + +---------+ + + | EXTERNAL LAB | | | | + +---------+ + + Iron and Iron Binding Capacity (11/17/2013 5:57 AM PST) + + + + + + | Component | Value | Ref Range | Performed | Pathologist | | | | | At | Signature | + + + + + + | Iron | 31Comment: Testing | 30 - 180 ug/dL | EXTERNAL | | | | performed at [facility], [address] | | LAB | | | | [address], | | | | | | [place] [address] | | | | + + + + + + | TIBC | 155 (L)Comment: Testing | 260 - 490 ug/dL | EXTERNAL | | | | performed at [facility], [address] | | LAB | | | | [address], | | | | | | [place] [address] | | | | + + + + + + | Iron | 20Comment: Testing | 15 - 50 % | EXTERNAL | | | Saturation | performed at [facility], [address] | | LAB | | | | [address], | | | | | | [place] [address] | | | | + + + + + + + + | Specimen | + + | Blood specimen | | (specimen) | + + + +---------+ + + | Performing | Address | City/State/Zipcode | Phone Number | | Organization | | | | + +---------+ + + | EXTERNAL LAB | | | | + +---------+ + + External Lab: CBC (11/17/2013 5:57 AM PST) + + + + + + | Component | Value | Ref Range | Performed | Pathologist | | | | | At | Signature | + + + + + + | WBC | 7.8Comment: Testing | 3.8 - 11.0 K/uL | EXTERNAL | | | | performed at [facility], [address] | | LAB | | | | [address], | | | | | | [place] [address] | | | | + + + + + + | RED CELL | 3.51 (L)Comment: Testing | 3.70 - 5.10 | EXTERNAL | | | COUNT | performed at [facility], [address] | M/uL | LAB | | | | [address], | | | | | | [place] [address] | | | | + + + + + + | Hgb | 9.6 (L)Comment: Testing | 11.3 - 15.5 | EXTERNAL | | | | performed at [facility], [address] | g/dL | LAB | | | | [address], | | | | | | [place] [address] | | | | + + + + + + | Hematocrit, | 29.5 (L)Comment: Testing | 34.0 - 46.0 % | EXTERNAL | | | POC | performed at [facility], [address] | | LAB | | | | [address], | | | | | | [place] [address] | | | | + + + + + + | MCV | 84.3Comment: Testing | 80.0 - 100.0 fl | EXTERNAL | | | | performed at [facility], [address] | | LAB | | | | [address], | | | | | | [place] [address] | | | | + + + + + + | MCH | 27.5Comment: Testing | 27.0 - 34.0 pg | EXTERNAL | | | | performed at [facility], [address] | | LAB | | | | [address], | | | | | | [place] [address] | | | | + + + + + + | MCHC | 32.6Comment: Testing | 32.0 - 35.5 | EXTERNAL | | | | performed at [facility], [address] | g/dL | LAB | | | | [address], | | | | | | [place] [address] | | | | + + + + + + | RDW-CV | 36.3 (L)Comment: Testing | 37 - 53 fl | EXTERNAL | | | | performed at [facility], [address] | | LAB | | | | [address], | | | | | | [place] [address] | | | | + + + + + + | Platelet | 151Comment: Testing | 150 - 400 K/uL | EXTERNAL | | | Count | performed at [facility], [address] | | LAB | | | Plasma | [address], | | | | | | [place] [address] | | | | + + + + + + | MPV | 7.9Comment: Testing | fl | EXTERNAL | | | | performed at [facility], [address] | | LAB | | | | [address], | | | | | | [place] [address] | | | | + + + + + + | Differentia | AUTOMATEDComment: | | EXTERNAL | | | l Type | Testing performed at | | LAB | | | | [facility], [address] | | | | | | [place] | | | | | | [address] | | | | + + + + + + | % Segmented | 74.1 | % | EXTERNAL | | | | | | LAB | | | Neutrophils | | | | | + + + + + + | % | 20.1 | % | EXTERNAL | | | Lymphocytes | | | LAB | | + + + + + + | % Monocytes | 4.1 | % | EXTERNAL | | | | | | LAB | | + + + + + + | % | 1.4 | % | EXTERNAL | | | Eosinophils | | | LAB | | + + + + + + | % Basophils | 0.3 | % | EXTERNAL | | | | | | LAB | | + + + + + + | Absolute | 5.8 | 1.9 - 7.4 K/uL | EXTERNAL | | | Segmented | | | LAB | | | Neutrophils | | | | | + + + + + + | Absolute | 1.6 | 1.0 - 3.9 K/uL | EXTERNAL | | | Lymphocytes | | | LAB | | + + + + + + | Absolute | 0.3 | 0 - 0.8 K/uL | EXTERNAL | | | Monocytes | | | LAB | | + + + + + + | Absolute | 0.1 | 0 - 0.5 K/uL | EXTERNAL | | | Eosinophils | | | LAB | | + + + + + + | Absolute | 0.0 | 0 - 0.1 K/uL | EXTERNAL | | | Basophils | | | LAB | | + + + + + + | RBC | Comment: 1+ Hypochromia | | EXTERNAL | | | Morphology | | | LAB | | + + + + + + + + | Specimen | + + | Blood specimen | | (specimen) | + + + +---------+ + + | Performing | Address | City/State/Zipcode | Phone Number | | Organization | | | | + +---------+ + + | EXTERNAL LAB | | | | + +---------+ + + Folate (11/17/2013 5:57 AM PST) + + + + + + | Component | Value | Ref Range | Performed | Pathologist | | | | | At | Signature | + + + + + + | Folate | 17.7Comment: Testing | ng/mL | EXTERNAL | | | | performed at [facility], [address] | | LAB | | | | [address], | | | | | | [place] [address] | | | | + + + + + + + + | Specimen | + + | Blood specimen | | (specimen) | + + + +---------+ + + | Performing | Address | City/State/Zipcode | Phone Number | | Organization | | | | + +---------+ + + | EXTERNAL LAB | | | | + +---------+ + + Ferritin (11/17/2013 5:57 AM PST) + + + + + + | Component | Value | Ref Range | Performed | Pathologist | | | | | At | Signature | + + + + + + | Ferritin, | 140Comment: Testing | 6 - 170 ng/mL | EXTERNAL | | | External | performed at [facility], [address] | | LAB | | | | [address], | | | | | | [place] [address] | | | | + + + + + + + + | Specimen | + + | Blood specimen | | (specimen) | + + + +---------+ + + | Performing | Address | City/State/Zipcode | Phone Number | | Organization | | | | + +---------+ + + | EXTERNAL LAB | | | | + +---------+ + + Vitamin B-12 (11/17/2013 5:57 AM PST) + + + + + + | Component | Value | Ref Range | Performed | Pathologist | | | | | At | Signature | + + + + + + | VITAMIN | 417Comment: Testing | 254 - 1,320 | EXTERNAL | | | B-12 | performed at [facility], [address] | pg/mL | LAB | | | | [address], | | | | | | [place] [address] | | | | + + + + + + + + | Specimen | + + | Blood specimen | | (specimen) | + + + +---------+ + + | Performing | Address | City/State/Zipcode | Phone Number | | Organization | | | | + +---------+ + + | EXTERNAL LAB | | | | + +---------+ + + Comprehensive Metabolic Panel (11/17/2013 5:57 AM PST) + + + + + + | Component | Value | Ref Range | Performed | Pathologist | | | | | At | Signature | + + + + + + | Na | 134 (L)Comment: Testing | 135 - 143 | EXTERNAL | | | | performed at [facility], [address] | mmol/L | LAB | | | | [address], | | | | | | [place] [address] | | | | + + + + + + | K | 3.8Comment: Testing | 3.5 - 4.9 | EXTERNAL | | | | performed at [facility], [address] | mmol/L | LAB | | | | [address], | | | | | | [place] [address] | | | | + + + + + + | Cl | 103Comment: Testing | 99 - 109 mmol/L | EXTERNAL | | | | performed at [facility], [address] | | LAB | | | | [address], | | | | | | [place] [address] | | | | + + + + + + | CO2 | 28Comment: Testing | 23 - 32 mmol/L | EXTERNAL | | | | performed at [facility], [address] | | LAB | | | | [address], | | | | | | [place] [address] | | | | + + + + + + | Anion Gap | 7Comment: Testing | 5 - 20 mmol/L | EXTERNAL | | | | performed at [facility], [address] | | LAB | | | | [address], | | | | | | [place] [address] | | | | + + + + + + | Glucose, | 131 (H)Comment: Testing | 65 - 99 mg/dL | EXTERNAL | | | Fasting | performed at [facility], [address] | | LAB | | | | [address], | | | | | | [place] [address] | | | | + + + + + + | BUN | 7 (L)Comment: Testing | 8 - 25 mg/dL | EXTERNAL | | | | performed at [facility], [address] | | LAB | | | | [address], | | | | | | [place] [address] | | | | + + + + + + | Creatinine | 0.61Comment: Testing | 0.50 - 1.00 | EXTERNAL | | | | performed at [facility], [address] | mg/dL | LAB | | | | [address], | | | | | | [place] [address] | | | | + + + + + + | BUN/Creatin | 11Comment: Testing | | EXTERNAL | | | ine Ratio | performed at [facility], [address] | | LAB | | | | [address], | | | | | | [place] [address] | | | | + + + + + + | Calcium | 8.5Comment: Testing | 8.5 - 10.2 | EXTERNAL | | | | performed at [facility], [address] | mg/dL | LAB | | | | [address], | | | | | | [place] [address] | | | | + + + + + + | Protein, | 5.2 (L)Comment: Testing | 6.3 - 8.2 g/dL | EXTERNAL | | | Total | performed at [facility], [address] | | LAB | | | | [address], | | | | | | [place] [address] | | | | + + + + + + | Albumin | 3.1 (L)Comment: Testing | 3.3 - 4.8 g/dL | EXTERNAL | | | | performed at [facility], [address] | | LAB | | | | [address], | | | | | | [place] [address] | | | | + + + + + + | Globulin | 2.1Comment: Testing | 1.3 - 4.9 g/dL | EXTERNAL | | | | performed at [facility], [address] | | LAB | | | | [address], | | | | | | [place] [address] | | | | + + + + + + | A/G Ratio | 1.5Comment: Testing | 1.0 - 2.4 | EXTERNAL | | | | performed at [facility], [address] | | LAB | | | | [address], | | | | | | [place] [address] | | | | + + + + + + | Bilirubin | 0.6Comment: Testing | 0.1 - 1.5 mg/dL | EXTERNAL | | | Total | performed at [facility], [address] | | LAB | | | | [address], | | | | | | [place] [address] | | | | + + + + + + | ALP, | 48Comment: Testing | 35 - 115 U/L | EXTERNAL | | | External | performed at [facility], [address] | | LAB | | | | [address], | | | | | | [place] [address] | | | | + + + + + + | AST | 19Comment: Testing | 10 - 45 U/L | EXTERNAL | | | | performed at [facility], [address] | | LAB | | | | [address], | | | | | | [place] [address] | | | | + + + + + + | ALT | 21Comment: Testing | 10 - 65 U/L | EXTERNAL | | | | performed at [facility], [address] | | LAB | | | | [address], | | | | | | [place] [address] | | | | + + + [...] | | | | | | at [facility], [address] | | | | | | [address], | | | | | | [place] [address] | | | | + + + + + + + + | Specimen | + + | Blood specimen | | (specimen) | + + + +---------+ + + | Performing | Address | City/State/Zipcode | Phone Number | | Organization | | | | + +---------+ + + | EXTERNAL LAB | | | | + +---------+ + + Potassium (11/16/2013 11:12 AM PST) + + + + + + | Component | Value | Ref Range | Performed | Pathologist | | | | | At | Signature | + + + + + + | K | 3.6Comment: Testing | 3.5 - 4.9 | EXTERNAL | | | | performed at [facility];[address] | mmol/L | LAB | | | | [address];[place], [place] | | | | | | [address] | | | | + + + + + + + + | Specimen | + + | Blood specimen | | (specimen) | + + + +---------+ + + | Performing | Address | City/State/Zipcode | Phone Number | | Organization | | | | + +---------+ + + | EXTERNAL LAB | | | | + +---------+ + + Culture, Urine (11/16/2013 9:51 AM PST) + + | Specimen | + + | Urine specimen | | (specimen) | + + + + + | Narrative | Performed At | + + + | Specimen Description CLEAN CATCH URINE | EXTERNAL LAB | | Testing performed at | | | [facility];[address] [facility];[place] [address] CULTURE | | | NO GROWTH | | | Testing performed at [facility], [address] [facility], | | | [place] [address] REPORT STATUS | | | 11/17/2013 FINAL | | + + + + +---------+ + + | Performing | Address | City/State/Zipcode | Phone Number | | Organization | | | | + +---------+ + + | EXTERNAL LAB | | | | + +---------+ + + Acetaminophen Level (11/16/2013 7:55 AM PST) + + + + + + | Component | Value | Ref Range | Performed | Pathologist | | | | | At | Signature | + + + + + + | ACETAMINOPH | 3.7 (L)Comment: Testing | 10.0 - 30.0 | EXTERNAL | | | EN LEVEL | performed at [facility];[address] | ug/mL | LAB | | | | [address];[place] | | | | | | [address] | | | | + + + + + + + + | Specimen | + + | Blood specimen | | (specimen) | + + + +---------+ + + | Performing | Address | City/State/Zipcode | Phone Number | | Organization | | | | + +---------+ + + | EXTERNAL LAB | | | | + +---------+ + + XR Chest 1 Vw (11/16/2013 6:21 AM PST) + + | Specimen | + + | | + + + + + | Impressions | Performed At | + + + | 1. Persistent mild to moderate alveolar infiltrates suggesting | | | mild alveolar pulmonary edema, unchanged. 2. Endotracheal | | | extubation. Electronically signed by Norberto Anthony MD on | | | 11/16/2013 8:38 AM | | + + + + + + | Narrative | Performed At | + + + | RONALD DOHERTYFAWTHROP XR CHEST 1 VIEW 11/16/2013 6:21 AM | | | History: 68 years. Female. Acute respiratory failure secondary | | | to drug overdose. Followup for pulmonary infiltrates. Technique: | | | AP portable upright technique was performed at 0519 hours. | | | Comparison: 11/15/13 Findings: Heterogeneous, moderate alveolar | | | infiltrates are visualized in the perihilar lung valenzuela bilaterally, | | | somewhat greater on the right than the left, relatively unchanged as | | | compared with 11/15/13. The lung bases are clear. No pleural effusion | | | noted. The inspiratory effort is moderate. The patient is mildly | | | rotated to the right. The cardiac volume is normal. A left jugular | | | central venous catheters in good position with its tip in the superior | | | vena cava. The endotracheal tube is been removed. | | + + + + + | Procedure Note | + + | Junior, Rad Conversion - 06/15/2019 1:42 PM PDT RONALD DOHERTYFAWTHROPXR CHEST 1 | | VIEW11/16/2013 6:21 AM History: 68 years. Female. Acute respiratory failure secondary | | to drug overdose. Followup for pulmonary infiltrates. Technique: AP portable upright | | technique was performed at 0519 hours.Comparison: 11/15/13 Findings: Heterogeneous, | | moderate alveolar infiltrates are visualized in the perihilar lung valenzuela bilaterally, | | somewhat greater on the right than the left, relatively unchanged as compared with | | 11/15/13. The lung bases are clear. No pleural effusion noted. The inspiratory effort is | | moderate. The patient is mildly rotated to the right. The cardiac volume is normal. A | | left jugular central venous catheters in good position with its tip in the superior vena | | cava. The endotracheal tube is been removed. IMPRESSION: 1. Persistent mild to | | moderate alveolar infiltrates suggesting mild alveolar pulmonary edema, unchanged.2. | | Endotracheal extubation. | | 8:38 AM | | | |IMPRESSION: | |1. Persistent mild to moderate alveolar infiltrates suggesting mild alveolar pulmonary ramin ma, unchanged. | |2. Endotracheal extubation. | | | | | + + External Lab: CBC (11/16/2013 4:07 AM PST) + + + + + + | Component | Value | Ref Range | Performed | Pathologist | | | | | At | Signature | + + + + + + | WBC | 11.5 (H)Comment: Testing | 3.8 - 11.0 K/uL | EXTERNAL | | | | performed at [facility], [address] | | LAB | | | | [address], | | | | | | [place] [address] | | | | + + + + + + | RED CELL | 3.54 (L)Comment: Testing | 3.70 - 5.10 | EXTERNAL | | | COUNT | performed at [facility], [address] | M/uL | LAB | | | | [address], | | | | | | [place] [address] | | | | + + + + + + | Hgb | 10.1 (L)Comment: Testing | 11.3 - 15.5 | EXTERNAL | | | | performed at [facility], [address] | g/dL | LAB | | | | [address], | | | | | | [place] [address] | | | | + + + + + + | Hematocrit, | 29.5 (L)Comment: Testing | 34.0 - 46.0 % | EXTERNAL | | | POC | performed at [facility], [address] | | LAB | | | | [address], | | | | | | [place] [address] | | | | + + + + + + | MCV | 83.4Comment: Testing | 80.0 - 100.0 fl | EXTERNAL | | | | performed at [facility], [address] | | LAB | | | | [address], | | | | | | [place] [address] | | | | + + + + + + | MCH | 28.7Comment: Testing | 27.0 - 34.0 pg | EXTERNAL | | | | performed at [facility], [address] | | LAB | | | | [address], | | | | | | [place] [address] | | | | + + + + + + | MCHC | 34.3Comment: Testing | 32.0 - 35.5 | EXTERNAL | | | | performed at [facility], [address] | g/dL | LAB | | | | [address], | | | | | | [place] [address] | | | | + + + + + + | RDW-CV | 37.6Comment: Testing | 37 - 53 fl | EXTERNAL | | | | performed at [facility], [address] | | LAB | | | | [address], | | | | | | [place] [address] | | | | + + + + + + | Platelet | 176Comment: Testing | 150 - 400 K/uL | EXTERNAL | | | Count | performed at [facility], [address] | | LAB | | | Plasma | [address], | | | | | | [place] [address] | | | | + + + + + + | MPV | 7.8Comment: Testing | fl | EXTERNAL | | | | performed at [facility], [address] | | LAB | | | | [address], | | | | | | [place] [address] | | | | + + + + + + | Differentia | AUTOMATEDComment: | | EXTERNAL | | | l Type | Testing performed at | | LAB | | | | [facility], [address] | | | | | | [place] | | | | | | [address] | | | | + + + + + + | % Segmented | 75.6 | % | EXTERNAL | | | | | | LAB | | | Neutrophils | | | | | + + + + + + | % | 19.4 | % | EXTERNAL | | | Lymphocytes | | | LAB | | + + + + + + | % Monocytes | 4.2 | % | EXTERNAL | | | | | | LAB | | + + + + + + | % | 0.5 | % | EXTERNAL | | | Eosinophils | | | LAB | | + + + + + + | % Basophils | 0.3 | % | EXTERNAL | | | | | | LAB | | + + + + + + | Absolute | 8.7 (H) | 1.9 - 7.4 K/uL | EXTERNAL | | | Segmented | | | LAB | | | Neutrophils | | | | | + + + + + + | Absolute | 2.2 | 1.0 - 3.9 K/uL | EXTERNAL | | | Lymphocytes | | | LAB | | + + + + + + | Absolute | 0.5 | 0 - 0.8 K/uL | EXTERNAL | | | Monocytes | | | LAB | | + + + + + + | Absolute | 0.1 | 0 - 0.5 K/uL | EXTERNAL | | | Eosinophils | | | LAB | | + + + + + + | Absolute | 0.0 | 0 - 0.1 K/uL | EXTERNAL | | | Basophils | | | LAB | | + + + + + + + + | Specimen | + + | Blood specimen | | (specimen) | + + + +---------+ + + | Performing | Address | City/State/Zipcode | Phone Number | | Organization | | | | + +---------+ + + | EXTERNAL LAB | | | | + +---------+ + + Phosphorus (11/16/2013 4:07 AM PST) + + + + + + | Component | Value | Ref Range | Performed | Pathologist | | | | | At | Signature | + + + + + + | PHOSPHORUS | 1.7 (L)Comment: Testing | 2.3 - 4.8 mg/dL | EXTERNAL | | | | performed at [facility];[address] | | LAB | | | | [facility];[place], [place] | | | | | | [address] | | | | + + + + + + + + | Specimen | + + | Blood specimen | | (specimen) | + + + +---------+ + + | Performing | Address | City/State/Zipcode | Phone Number | | Organization | | | | + +---------+ + + | EXTERNAL LAB | | | | + +---------+ + + Magnesium (11/16/2013 4:07 AM PST) + + + + + + | Component | Value | Ref Range | Performed | Pathologist | | | | | At | Signature | + + + + + + | Magnesium | 1.6 (L)Comment: Testing | 1.7 - 2.4 mg/dL | EXTERNAL | | | | performed at [facility] | | LAB | | | | [address];[place] | | | | | | [address] | | | | + + + + + + + + | Specimen | + + | Blood specimen | | (specimen) | + + + +---------+ + + | Performing | Address | City/State/Zipcode | Phone Number | | Organization | | | | + +---------+ + + | EXTERNAL LAB | | | | + +---------+ + + Acetaminophen Level (11/16/2013 4:07 AM PST) + + + + + + | Component | Value | Ref Range | Performed | Pathologist | | | | | At | Signature | + + + + + + | ACETAMINOPH | 4.5 (L)Comment: Testing | 10.0 - 30.0 | EXTERNAL | | | EN LEVEL | performed at [facility];[address] | ug/mL | LAB | | | | [address];[place], [place] | | | | | | [address] | | | | + + + + + + + + | Specimen | + + | Blood specimen | | (specimen) | + + + +---------+ + + | Performing | Address | City/State/Zipcode | Phone Number | | Organization | | | | + +---------+ + + | EXTERNAL LAB | | | | + +---------+ + + Basic Metabolic Panel (11/16/2013 4:07 AM PST) + + + + + + | Component | Value | Ref Range | Performed | Pathologist | | | | | At | Signature | + + + + + + | Na | 143Comment: Testing | 135 - 143 | EXTERNAL | | | | performed at [facility];[address] | mmol/L | LAB | | | | [address];[place] | | | | | | [address] | | | | + + + + + + | K | 3.1 (L)Comment: Testing | 3.5 - 4.9 | EXTERNAL | | | | performed at [facility];[address] | mmol/L | LAB | | | | [address];[place] | | | | | | [address] | | | | + + + + + + | Cl | 109Comment: Testing | 99 - 109 mmol/L | EXTERNAL | | | | performed at [facility];[address] | | LAB | | | | [address];[place] | | | | | | [address] | | | | + + + + + + | CO2 | 27Comment: Testing | 23 - 32 mmol/L | EXTERNAL | | | | performed at [facility];[address] | | LAB | | | | [address];[place] | | | | | | [address] | | | | + + + + + + | Anion Gap | 10Comment: Testing | 5 - 20 mmol/L | EXTERNAL | | | | performed at [facility];[address] | | LAB | | | | [address];[place] | | | | | | [address] | | | | + + + + + + | Glucose, | 78Comment: Testing | 65 - 99 mg/dL | EXTERNAL | | | Fasting | performed at [facility];[address] | | LAB | | | | [address];[place] | | | | | | [address] | | | | + + + + + + | BUN | 7 (L)Comment: Testing | 8 - 25 mg/dL | EXTERNAL | | | | performed at [facility];[address] | | LAB | | | | [address];[place] | | | | | | [address] | | | | + + + + + + | Creatinine | 0.77Comment: Testing | 0.50 - 1.00 | EXTERNAL | | | | performed at [facility];[address] | mg/dL | LAB | | | | [address];[place] | | | | | | [address] | | | | + + + + + + | BUN/Creatin | 9Comment: Testing | | EXTERNAL | | | ine Ratio | performed at [facility];[address] | | LAB | | | | [address];[place] | | | | | | [address] | | | | + + + + + + | Calcium | 7.8 (L)Comment: Testing | 8.5 - 10.2 | EXTERNAL | | | | performed at [facility];[address] | mg/dL | LAB | | | | [address];[place], [place] | | | | | | [address] | | | | + + + [...] | | | | | | at [facility];[address];[place] [address] | | | | + + + + + + + + | Specimen | + + | Blood specimen | | (specimen) | + + + +---------+ + + | Performing | Address | City/State/Zipcode | Phone Number | | Organization | | | | + +---------+ + + | EXTERNAL LAB | | | | + +---------+ + + Acetaminophen Level (11/16/2013 12:36 AM PST) + + + + + + | Component | Value | Ref Range | Performed | Pathologist | | | | | At | Signature | + + + + + + | ACETAMINOPH | 5.2 (L)Comment: Testing | 10.0 - 30.0 | EXTERNAL | | | EN LEVEL | performed at [facility];888 | ug/mL | LAB | | | | [address];[place] | | | | | | [address] | | | | + + + + + + + + | Specimen | + + | Blood specimen | | (specimen) | + + + +---------+ + + | Performing | Address | City/State/Zipcode | Phone Number | | Organization | | | | + +---------+ + + | EXTERNAL LAB | | | | + +---------+ + + CK-MB (11/15/2013 4:02 PM PST) + + + + + -+ | Component | Value | Ref Range | Performed | Pathologist | | | | | At | Signature | + + + + + -+ | CK-MB | 3.4Comment: Testing | 0.5 - 3.6 ng/mL | EXTERNAL | | | | performed at [facility];[address] | | LAB | | | | [facility] [facility];[place], [place] | | | | | | [address] | | | | + + + + + -+ | CK-MB Index | 2.4Comment: CK INDEX | | EXTERNAL | | [...] | | | + +---------+ + + Troponin I (11/15/2013 4:02 PM PST) + + + + + + | Component | Value | Ref Range | Performed | Pathologist | | | | | At | Signature | + + + + + + | Troponin I, | 0.208 (H)Comment: 0.00 | 0.00 - 0.10 | EXTERNAL | | | Qual | to 0.10 CONSISTENT | ng/mL | LAB | | | | WITH NORMAL | | | | | | POPULATION0.11 to 0.60 | | | | | | CONSISTENT WITH | | | | | | INCREASED RISK FOR | | | | | | ADVERSE OUTCOMES> 0.60 | | | | | | CONSISTENT | | | | | | WITH WHO CRITERIA FOR | | | | | | ACUTE [place] Testing | | | | | | performed at [facility] | | | | | | [address];[place], [place] | | | | | | [address] | | | | + + + + + + + + | Specimen | + + | Blood specimen | | (specimen) | + + + +---------+ + + | Performing | Address | City/State/Zipcode | Phone Number | | Organization | | | | + +---------+ + + | EXTERNAL LAB | | | | + +---------+ + + CK Total (11/15/2013 4:02 PM PST) + + + + + + | Component | Value | Ref Range | Performed | Pathologist | | | | | At | Signature | + + + + + + | CK, Total | 140Comment: Testing | 30 - 240 U/L | EXTERNAL | | | | performed at [facility];[address] | | LAB | | | | [address];[place], [place] | | | | | | [address] | | | | + + + + + + + + | Specimen | + + | Blood specimen | | (specimen) | + + + +---------+ + + | Performing | Address | City/State/Zipcode | Phone Number | | Organization | | | | + +---------+ + + | EXTERNAL LAB | | | | + +---------+ + + Acetaminophen Level (11/15/2013 4:02 PM PST) + + + + + + | Component | Value | Ref Range | Performed | Pathologist | | | | | At | Signature | + + + + + + | ACETAMINOPH | 10.0Comment: Testing | 10.0 - 30.0 | EXTERNAL | | | EN LEVEL | performed at [facility];[address] | ug/mL | LAB | | | | [address];[place], [place] | | | | | | [address] | | | | + + + + + + + + | Specimen | + + | Blood specimen | | (specimen) | + + + +---------+ + + | Performing | Address | City/State/Zipcode | Phone Number | | Organization | | | | + +---------+ + + | EXTERNAL LAB | | | | + +---------+ + + Echo Limited (11/15/2013 2:33 PM PST) + + | Specimen | + + | | + + + + + | Impressions | Performed At | + + + | 1. This was a technically difficult study with suboptimal views. 2. | | | Overall left ventricular systolic function is normal with, an EF | | | between 60 - 65 %. 3. Mild mitral annular calcification present. | | + + + + + + | Narrative | Performed At | + + + | Patient Name: RONALD CASTAÑEDA Date of : | | | 1945 Performing Physician: | | | Finesse Cortez MD | | | | | | INDICATIONS altered mental status, copd CONCLUSIONS | | | 1. This was a technically difficult study with | | | suboptimal views. 2. Overall left ventricular systolic function is | | | normal with, an EF between 60 - 65 %. 3. Mild mitral annular | | | calcification present. FINDINGS -------- ECG rhythm: Resting | | | tachycardia (HR>100bpm). Study: A limited 2-dimensional transthoracic | | | echocardiogram with limited spectral and color flow Doppler was | | | performed. Study: This was a technically difficult study with | | | suboptimal views. Study: Patient in pain not able to hold still for | | | echo. Left Ventricle: Overall left ventricular systolic function is | | | normal with, an EF between 60 - 65 %. Left Ventricle: The left | | | ventricle cavity size is normal. Left Ventricle: Left ventricular | | | wall thickness is normal. Left Ventricle: Cannot assess diastolic | | | function due to tachycardia. Left Atrium: The left atrial size is | | | normal. Right Atrium: The right atrial size is normal Right Atrium: | | | , and the RA measures 3.7cm. Aortic Valve: The aortic valve was not | | | well visualized. Aortic Valve: There is no evidence of aortic | | | regurgitation. Aortic Valve: There is no evidence of aortic stenosis. | | | Mitral Valve: Mild mitral annular calcification present. Tricuspid | | | Valve: The tricuspid valve was not well visualized. Tricuspid Valve: | | | Trace tricuspid regurgitation present. Tricuspid Valve: Right | | | ventricular systolic pressure (pulmonary artery systolic pressure) is | | | normal at < 35 mmHg. Pulmonic Valve: The pulmonic valve was not well | | | visualized. Pericardium: There is no pericardial effusion. | | | IVC/Hepatic Veins: The IVC is normal size (1.5-2.5cm) and collapses | | | <50% with sniff, consistent with central venous pressures of | | | 10-15mmHg. MEASUREMENTS LA Major: 3.64 cm | | | EDV(Teich): 78.10 ml IVSd: 0.86 cm LVIDd: 4.18 cm LVPWd: | | | 0.76 cm LVOT Diam: 1.94 cm %FS: 36.37 % EF(Teich): | | | 66.49 % ESV(Teich): 26.16 ml IVSs: 1.14 cm LVIDs: 2.66 cm | | | LVPWs: 1.14 cm SV(Teich): 51.93 ml RA Major: 3.67 cm IVC | | | diameter: 2.38 cm IVC collapse: 1.58 cm IVC % collapse: | | | 30.95 % HR: 131.95 BPM AV maxP.31 mmHg AV meanP.05 | | | mmHg AV Vmax: 1.44 m/s AV Vmean: 1.08 m/s AV VTI: 23.26 | | | cm SHABNAM Vmax: 3.14 cm2 SHABNAM (VTI): 2.90 cm2 LVCI Dopp: 4.57 | | | l/minm2 LVCO Dopp: 7.95 l/min HR: 117.60 BPM LVOT maxPG: | | | 9.36 mmHg LVOT meanP.28 mmHg LVSI Dopp: 38.87 ml/m2 LVSV | | | Dopp: 67.64 ml LVOT Vmax: 1.52 m/s LVOT Vmean: 1.10 m/s | | | LVOT VTI: 22.79 cm MV A Mark: 1.31 m/s MV DecT: 74.24 ms MV | | | E Mark: 1.08 m/s MV E/A Ratio: 0.82 Septal e': 0.16 m/s | | | Septal E/e': 6.57 Lateral e': 0.10 m/s Lateral E/e': 10.66 | | | RAP: 10 mmHg RVSP: 33.88 mmHg TR maxP.88 mmHg TR | | | Vmax: 2.44 m/s Workers Compensation Claims Examiner: Authenticated by: Finesse Cortez | | | Report Date/Time: 11-15-2013 18:08:31 | | + + + + + | Procedure Note | + + | Junior, Reji Conversion - 06/15/2019 1:42 PM PDT Patient Name: CARRIE, | | LAURIEDate of : 1945 Performing Physician: Finesse Cortez | | | | MD INDICATIONS a | | ltered mental status, copd CONCLUSIONS 1. This was a technically difficult | | study with suboptimal views.2. Overall left ventricular systolic function is normal | | with, an EF between 60 - 65 %.3. Mild mitral annular calcification present. | | FINDINGS--------ECG rhythm: Resting tachycardia (HR>100bpm).Study: A limited | | 2-dimensional transthoracic echocardiogram with limited spectral and color flow Doppler | | was performed.Study: This was a technically difficult study with suboptimal views.Study: | | Patient in pain not able to hold still for echo.Left Ventricle: Overall left | | ventricular systolic function is normal with, an EF between 60 - 65 %.Left Ventricle: | | The left ventricle cavity size is normal.Left Ventricle: Left ventricular wall thickness | | is normal.Left Ventricle: Cannot assess diastolic function due to tachycardia.Left | | Atrium: The left atrial size is normal.Right Atrium: The right atrial size is | | normalRight Atrium: , and the RA measures 3.7cm.Aortic Valve: The aortic valve was not | | well visualized.Aortic Valve: There is no evidence of aortic regurgitation.Aortic Valve: | | There is no evidence of aortic stenosis.Mitral Valve: Mild mitral annular calcification | | present.Tricuspid Valve: The tricuspid valve was not well visualized.Tricuspid Valve: | | Trace tricuspid regurgitation present.Tricuspid Valve: Right ventricular systolic | | pressure (pulmonary artery systolic pressure) is normal at < 35 mmHg.Pulmonic Valve: The | | pulmonic valve was not well visualized.Pericardium: There is no pericardial | | effusion.IVC/Hepatic Veins: The IVC is normal size (1.5-2.5cm) and collapses <50% with | | sniff, consistent with central venous pressures of 10-15mmHg. | | MEASUREMENTS LA Major: 3.64 cmEDV(Teich): 78.10 mlIVSd: 0.86 cmLVIDd: | | 4.18 cmLVPWd: 0.76 cmLVOT Diam: 1.94 cm%FS: 36.37 %EF(Teich): 66.49 | | %ESV(Teich): 26.16 mlIVSs: 1.14 cmLVIDs: 2.66 cmLVPWs: 1.14 cmSV(Teich): 51.93 | | mlRA Major: 3.67 cmIVC diameter: 2.38 cmIVC collapse: 1.58 cmIVC % collapse: | | 30.95 %HR: 131.95 BPMAV maxP.31 mmHgAV meanP.05 mmHgAV Vmax: 1.44 m/Tisha | | Vmean: 1.08 m/Tisha VTI: 23.26 cmAVA Vmax: 3.14 cm2AVA (VTI): 2.90 qy9QGQT Dopp: | | 4.57 l/hphi7SXFT Dopp: 7.95 l/minHR: 117.60 BPMLVOT maxP.36 mmHgLVOT meanPG: | | 5.28 mmHgLVSI Dopp: 38.87 ml/m2LVSV Dopp: 67.64 mlLVOT Vmax: 1.52 m/sLVOT Vmean: | | 1.10 m/sLVOT VTI: 22.79 cmMV A Mark: 1.31 m/sMV DecT: 74.24 msMV E Mark: 1.08 | | m/sMV E/A Ratio: 0.82Septal e': 0.16 m/sSeptal E/e': 6.57Lateral e': 0.10 | | m/sLateral E/e': 10.66RAP: 10 mmHgRVSP: 33.88 mmHgTR maxP.88 mmHgTR Vmax: | | 2.44 m/s Workers Compensation Claims Examiner: ABAuthenticated by: Finesse Aponte Date/Time: 11-15-2013 | | 18:08:31 IMPRESSION: 1. This was a technically difficult study with suboptimal views.2. | | Overall left ventricular systolic function is normal with, an EF between 60 - 65 %.3. | | Mild mitral annular calcification present. | |Pericardium: There is no pericardial effusion. | |IVC/Hepatic Veins: The IVC is normal size (1.5-2.5cm) and collapses <50% with sniff, consis tent with central venous pressures of 10-15mmHg. | | | |MEASUREMENTS | | | |LA Major: 3.64 cm | |EDV(Teich): 78.10 ml | |IVSd: 0.86 cm | |LVIDd: 4.18 cm | |LVPWd: 0.76 cm | |LVOT Diam: 1.94 cm | |%FS: 36.37 % | |EF(Teich): 66.49 % | |ESV(Teich): 26.16 ml | |IVSs: 1.14 cm | |LVIDs: 2.66 cm | |LVPWs: 1.14 cm | |SV(Teich): 51.93 ml | |RA Major: 3.67 cm | |IVC diameter: 2.38 cm | |IVC collapse: 1.58 cm | |IVC % collapse: 30.95 % | |HR: 131.95 BPM | |AV maxP.31 mmHg | |AV meanP.05 mmHg | |AV Vmax: 1.44 m/s | |AV Vmean: 1.08 m/s | |AV VTI: 23.26 cm | |SHABNAM Vmax: 3.14 cm2 | |SHABNAM (VTI): 2.90 cm2 | |LVCI Dopp: 4.57 l/minm2 | |LVCO Dopp: 7.95 l/min | |HR: 117.60 BPM | |LVOT maxP.36 mmHg | |LVOT meanP.28 mmHg | |LVSI Dopp: 38.87 ml/m2 | |LVSV Dopp: 67.64 ml | |LVOT Vmax: 1.52 m/s | |LVOT Vmean: 1.10 m/s | |LVOT VTI: 22.79 cm | |MV A Mark: 1.31 m/s | |MV DecT: 74.24 ms | |MV E Mark: 1.08 m/s | |MV E/A Ratio: 0.82 | |Septal e': 0.16 m/s | |Septal E/e': 6.57 | |Lateral e': 0.10 m/s | |Lateral E/e': 10.66 | |RAP: 10 mmHg | |RVSP: 33.88 mmHg | |TR maxP.88 mmHg | |TR Vmax: 2.44 m/s | | | |Workers Compensation Claims Examiner: AB | |Authenticated by: Finesse Cortez MD | |Report Date/Time: 11-15-2013 18:08:31 | | | |IMPRESSION: | |1. This was a technically difficult study with suboptimal views. | |2. Overall left ventricular systolic function is normal with, an EF between 60 - 65 %. | |3. Mild mitral annular calcification present. | + + Acetaminophen Level (11/15/2013 11:32 AM PST) + + + + + + | Component | Value | Ref Range | Performed | Pathologist | | | | | At | Signature | + + + + + + | ACETAMINOPH | 5.5 (L)Comment: Testing | 10.0 - 30.0 | EXTERNAL | | | EN LEVEL | performed at [facility];888 | ug/mL | LAB | | | | [address];[place], [place] | | | | | | [address] | | | | + + + + + + + + | Specimen | + + | Blood specimen | | (specimen) | + + + +---------+ + + | Performing | Address | City/State/Zipcode | Phone Number | | Organization | | | | + +---------+ + + | EXTERNAL LAB | | | | + +---------+ + + Basic Metabolic Panel (11/15/2013 11:32 AM PST) + + + + + + | Component | Value | Ref Range | Performed | Pathologist | | | | | At | Signature | + + + + + + | Na | 144 (H)Comment: Testing | 135 - 143 | EXTERNAL | | | | performed at [facility];[address] | mmol/L | LAB | | | | [address];[place] | | | | | | [address] | | | | + + + + + + | K | 3.9Comment: Testing | 3.5 - 4.9 | EXTERNAL | | | | performed at [facility];[address] | mmol/L | LAB | | | | [address];[place] | | | | | | [address] | | | | + + + + + + | Cl | 114 (H)Comment: Testing | 99 - 109 mmol/L | EXTERNAL | | | | performed at [facility];[address] | | LAB | | | | [address];[place] | | | | | | [address] | | | | + + + + + + | CO2 | 20 (L)Comment: Testing | 23 - 32 mmol/L | EXTERNAL | | | | performed at [facility];[address] | | LAB | | | | [address];[place] | | | | | | [address] | | | | + + + + + + | Anion Gap | 14Comment: Testing | 5 - 20 mmol/L | EXTERNAL | | | | performed at [facility];[address] | | LAB | | | | [address];[place] | | | | | | [address] | | | | + + + + + + | Glucose, | 153 (H)Comment: Testing | 65 - 99 mg/dL | EXTERNAL | | | Fasting | performed at [facility];[address] | | LAB | | | | [address];[place] | | | | | | [address] | | | | + + + + + + | BUN | 8Comment: Testing | 8 - 25 mg/dL | EXTERNAL | | | | performed at [facility];[address] | | LAB | | | | [address];[place] | | | | | | [address] | | | | + + + + + + | Creatinine | 0.92Comment: Testing | 0.50 - 1.00 | EXTERNAL | | | | performed at [facility];[address] | mg/dL | LAB | | | | [address];[place] | | | | | | [address] | | | | + + + + + + | BUN/Creatin | 9Comment: Testing | | EXTERNAL | | | ine Ratio | performed at [facility];[address] | | LAB | | | | [address];[place] | | | | | | [address] | | | | + + + + + + | Calcium | 7.4 (L)Comment: Testing | 8.5 - 10.2 | EXTERNAL | | | | performed at [facility];888 | mg/dL | LAB | | | | [address];[place] | | | | | | [address] | | | | + + + [...] | | | | | | at [facility];[address];[place] [address] | | | | + + + + + + + + | Specimen | + + | Blood specimen | | (specimen) | + + + +---------+ + + | Performing | Address | City/State/Zipcode | Phone Number | | Organization | | | | + +---------+ + + | EXTERNAL LAB | | | | + +---------+ + + CK-MB (11/15/2013 8:51 AM PST) + + + + + -+ | Component | Value | Ref Range | Performed | Pathologist | | | | | At | Signature | + + + + + -+ | CK-MB | 3.4Comment: Testing | 0.5 - 3.6 ng/mL | EXTERNAL | | | | performed at [facility];[address] | | LAB | | | | [address];[place] | | | | | | [address] | | | | + + + + + -+ | CK-MB Index | 4.5Comment: CK INDEX | | EXTERNAL | | [...] | | | + +---------+ + + Troponin I (11/15/2013 8:51 AM PST) + + + + + + | Component | Value | Ref Range | Performed | Pathologist | | | | | At | Signature | + + + + + + | Troponin I, | 0.325 (H)Comment: 0.00 | 0.00 - 0.10 | EXTERNAL | | | Qual | to 0.10 CONSISTENT | ng/mL | LAB | | | | WITH NORMAL | | | | | | POPULATION0.11 to 0.60 | | | | | | CONSISTENT WITH | | | | | | INCREASED RISK FOR | | | | | | ADVERSE OUTCOMES> 0.60 | | | | | | CONSISTENT | | | | | | WITH WHO CRITERIA FOR | | | | | | ACUTE [place] Testing | | | | | | performed at [facility];[address] | | | | | | [address];[place], [place] | | | | | | [address] | | | | + + + + + + + + | Specimen | + + | Blood specimen | | (specimen) | + + + +---------+ + + | Performing | Address | City/State/Zipcode | Phone Number | | Organization | | | | + +---------+ + + | EXTERNAL LAB | | | | + +---------+ + + CK Total (11/15/2013 8:51 AM PST) + + + + + + | Component | Value | Ref Range | Performed | Pathologist | | | | | At | Signature | + + + + + + | CK, Total | 75Comment: Testing | 30 - 240 U/L | EXTERNAL | | | | performed at [facility];[address] | | LAB | | | | [address];[place] | | | | | | [address] | | | | + + + + + + + + | Specimen | + + | Blood specimen | | (specimen) | + + + +---------+ + + | Performing | Address | City/State/Zipcode | Phone Number | | Organization | | | | + +---------+ + + | EXTERNAL LAB | | | | + +---------+ + + Acetaminophen Level (11/15/2013 8:51 AM PST) + + + + + + | Component | Value | Ref Range | Performed | Pathologist | | | | | At | Signature | + + + + + + | ACETAMINOPH | 6.3 (L)Comment: Testing | 10.0 - 30.0 | EXTERNAL | | | EN LEVEL | performed at [facility];[address] | ug/mL | LAB | | | | [address];[place], [place] | | | | | | [address] | | | | + + + + + + + + | Specimen | + + | Blood specimen | | (specimen) | + + + +---------+ + + | Performing | Address | City/State/Zipcode | Phone Number | | Organization | | | | + +---------+ + + | EXTERNAL LAB | | | | + +---------+ + + XR Chest 1 Vw (11/15/2013 6:08 AM PST) + + | Specimen | + + | | + + + + + | Impressions | Performed At | + + + | 1. Persistent mild bilateral peribronchial and alveolar | | | infiltrates suggesting pulmonary edema or aspiration, unchanged as | | | compared with 11/14/13. 2. Satisfactory position of life-support | | | catheters. Electronically signed by Norberto Anthony MD on | | | 11/15/2013 7:40 AM | | + + + + + + | Narrative | Performed At | + + + | [facility] CHEST 1 VIEW 11/15/2013 6:08 AM | | | History: 68 years. Female. Acute respiratory failure secondary | | | to drug overdose. Followup exam. Technique: AP portable upright | | | technique was performed at 0524 hours. Comparison: 11/14/13 | | | Findings: The inspiratory effort is moderate. Moderate peribronchial | | | infiltrates are visualized in the central lung [place] bilaterally, | | | upper and lower zones, unchanged as compared with 11/14/13. The | | | infiltrates are nonspecific, suggesting mild alveolar pulmonary | | | edema, or aspiration pneumonia. The lung bases are clear. No pleural | | | effusion. The cardiac volume is normal. The pulmonary logan and | | | mediastinal contours are normal. The thoracic aorta is normal, without | | | dilatation or calcification. The tip of the endotracheal tube is | | | at T5. A left jugular central venous catheters in good position with | | | its tip in the superior vena cava. A nasogastric tube is positioned in | | | the stomach. | | + + + + ------+ | Procedure Note | + ------+ | Junior, Rad Conversion - 06/15/2019 1:42 PM PDT [facility] CHEST 1 | | VIEW11/15/2013 6:08 AM History: 68 years. Female. Acute respiratory failure secondary | | to drug overdose. Followup exam. Technique: AP portable upright technique was performed | | at 0524 hours.Comparison: 11/14/13 Findings: The inspiratory effort is moderate. | | Moderate peribronchial infiltrates are visualized in the central lung valenz[place]a | | bilaterally, upper and lower zones, unchanged as compared with 11/14/13. The infiltrates | | are nonspecific, suggesting mild alveolar pulmonary edema, or aspiration pneumonia. The | | lung bases are clear. No pleural effusion. The cardiac volume is normal. The pulmonary | | logan and mediastinal contours are normal. The thoracic aorta is normal, without | | dilatation or calcification. The tip of the endotracheal tube is at T5. A left jugular | | central venous catheters in good position with its tip in the superior vena cava. A | | nasogastric tube is positioned in the stomach. IMPRESSION: 1. Persistent mild bilateral | | peribronchial and alveolar infiltrates suggesting pulmonary edema or aspiration, | | unchanged as compared with 11/14/13.2. Satisfactory position of life-support catheters. | | | |The tip of the endotracheal tube is at T5. A left jugular central venous catheters in good position with its tip in the superior vena cava. A nasogastric tube is positioned in the sto mach. | | | |IMPRESSION: | |1. Persistent mild bilateral peribronchial and alveolar infiltrates suggesting pulmonary e svitlana or aspiration, unchanged as compared with 11/14/13. | |2. Satisfactory position of life-support catheters. | | | | | + ------+ Lactic Acid (11/15/2013 5:32 AM PST) + + + + + + | Component | Value | Ref Range | Performed | Pathologist | | | | | At | Signature | + + + + + + | Lactate | 2.5 (H)Comment: Testing | 0.4 - 2.0 | EXTERNAL | | | | performed at [facility];[address] | mmol/L | LAB | | | | [address];[place], [place] | | | | | | [address] | | | | + + + + + + + + | Specimen | + + | Blood specimen | | (specimen) | + + + +---------+ + + | Performing | Address | City/State/Zipcode | Phone Number | | Organization | | | | + +---------+ + + | EXTERNAL LAB | | | | + +---------+ + + CK-MB (11/15/2013 4:08 AM PST) + + + + + -+ | Component | Value | Ref Range | Performed | Pathologist | | | | | At | Signature | + + + + + -+ | CK-MB | 3.3Comment: Testing | 0.5 - 3.6 ng/mL | EXTERNAL | | | | performed at [facility] | | LAB | | | | [address];[place] | | | | | | [address] | | | | + + + + + -+ | CK-MB Index | 5.9Comment: CK INDEX | | EXTERNAL | | [...] | | | + +---------+ + + Troponin I (11/15/2013 4:08 AM PST) + + + + + + | Component | Value | Ref Range | Performed | Pathologist | | | | | At | Signature | + + + + + + | Troponin I, | 0.647 ()Comment: | 0.00 - 0.10 | EXTERNAL | | | Qual | 0.00 to 0.10 | ng/mL | LAB | | | | CONSISTENT WITH NORMAL | | | | | | POPULATION0.11 to 0.60 | | | | | | CONSISTENT WITH | | | | | | INCREASED RISK FOR | | | | | | ADVERSE OUTCOMES> 0.60 | | | | | | CONSISTENT | | | | | | WITH WHO CRITERIA FOR | | | | | | ACUTE [place] CKTRP PHONED TO | | | | | | ICU GAYLE N AT 0540 BY | | | | | | LJREAD BACK RESULTS | | | | | | VERIFIEDTesting | | | | | | performed at [facility];[address] | | | | | | [address];[place] | | | | | | [address] | | | | + + + + + + + + | Specimen | + + | Blood specimen | | (specimen) | + + + +---------+ + + | Performing | Address | City/State/Zipcode | Phone Number | | Organization | | | | + +---------+ + + | EXTERNAL LAB | | | | + +---------+ + + External Lab: CBC (11/15/2013 4:08 AM PST) + + + + + + | Component | Value | Ref Range | Performed | Pathologist | | | | | At | Signature | + + + + + + | WBC | 5.5Comment: Testing | 3.8 - 11.0 K/uL | EXTERNAL | | | | performed at [facility], [address] | | LAB | | | | [address], | | | | | | [place] [address] | | | | + + + + + + | RED CELL | 3.94Comment: Testing | 3.70 - 5.10 | EXTERNAL | | | COUNT | performed at [facility], [address] | M/uL | LAB | | | | [address], | | | | | | [place] [address] | | | | + + + + + + | Hgb | 10.9 (L)Comment: Testing | 11.3 - 15.5 | EXTERNAL | | | | performed at [facility], [address] | g/dL | LAB | | | | [address], | | | | | | [place] [address] | | | | + + + + + + | Hematocrit, | 33.7 (L)Comment: Testing | 34.0 - 46.0 % | EXTERNAL | | | POC | performed at [facility], [address] | | LAB | | | | [address], | | | | | | [place] [address] | | | | + + + + + + | MCV | 85.6Comment: Testing | 80.0 - 100.0 fl | EXTERNAL | | | | performed at [facility], [address] | | LAB | | | | [address], | | | | | | [place] [address] | | | | + + + + + + | MCH | 27.7Comment: Testing | 27.0 - 34.0 pg | EXTERNAL | | | | performed at [facility], [address] | | LAB | | | | [address], | | | | | | [place] [address] | | | | + + + + + + | MCHC | 32.3Comment: Testing | 32.0 - 35.5 | EXTERNAL | | | | performed at [facility], [address] | g/dL | LAB | | | | [address], | | | | | | [place] [address] | | | | + + + + + + | RDW-CV | 37.6Comment: Testing | 37 - 53 fl | EXTERNAL | | | | performed at [facility], [address] | | LAB | | | | [address], | | | | | | [place] [address] | | | | + + + + + + | Platelet | 196Comment: Testing | 150 - 400 K/uL | EXTERNAL | | | Count | performed at [facility], [address] | | LAB | | | Plasma | [address], | | | | | | [place] [address] | | | | + + + + + + | MPV | 7.3Comment: Testing | fl | EXTERNAL | | | | performed at [facility], [address] | | LAB | | | | [address], | | | | | | [place] [address] | | | | + + + + + + | Differentia | AUTOMATEDComment: | | EXTERNAL | | | l Type | Testing performed at | | LAB | | | | [facility], [address] | | | | | | [place] | | | | | | [address] | | | | + + + + + + | % Segmented | 81.7 | % | EXTERNAL | | | | | | LAB | | | Neutrophils | | | | | + + + + + + | % | 14.5 | % | EXTERNAL | | | Lymphocytes | | | LAB | | + + + + + + | % Monocytes | 3.5 | % | EXTERNAL | | | | | | LAB | | + + + + + + | % | 0.1 | % | EXTERNAL | | | Eosinophils | | | LAB | | + + + + + + | % Basophils | 0.2 | % | EXTERNAL | | | | | | LAB | | + + + + + + | Absolute | 4.5 | 1.9 - 7.4 K/uL | EXTERNAL | | | Segmented | | | LAB | | | Neutrophils | | | | | + + + + + + | Absolute | 0.8 (L) | 1.0 - 3.9 K/uL | EXTERNAL | | | Lymphocytes | | | LAB | | + + + + + + | Absolute | 0.2 | 0 - 0.8 K/uL | EXTERNAL | | | Monocytes | | | LAB | | + + + + + + | Absolute | 0.0 | 0 - 0.5 K/uL | EXTERNAL | | | Eosinophils | | | LAB | | + + + + + + | Absolute | 0.0 | 0 - 0.1 K/uL | EXTERNAL | | | Basophils | | | LAB | | + + + + + + | RBC | Comment: 1+ Hypochromia | | EXTERNAL | | | Morphology | | | LAB | | + + + + + + + + | Specimen | + + | Blood specimen | | (specimen) | + + + +---------+ + + | Performing | Address | City/State/Zipcode | Phone Number | | Organization | | | | + +---------+ + + | EXTERNAL LAB | | | | + +---------+ + + Osmolality, Serum (11/15/2013 4:08 AM PST) + + + + + + | Component | Value | Ref Range | Performed | Pathologist | | | | | At | Signature | + + + + + + | Osmolality, | 316 (H)Comment: Testing | 280 - 301 | EXTERNAL | | | Serum | performed at [facility];[address] | mOsm/kg | LAB | | | | [address];[place] | | | | | | [address] | | | | + + + + + + + + | Specimen | + + | Blood specimen | | (specimen) | + + + +---------+ + + | Performing | Address | City/State/Zipcode | Phone Number | | Organization | | | | + +---------+ + + | EXTERNAL LAB | | | | + +---------+ + + CK Total (11/15/2013 4:08 AM PST) + + + + + + | Component | Value | Ref Range | Performed | Pathologist | | | | | At | Signature | + + + + + + | CK, Total | 56Comment: Testing | 30 - 240 U/L | EXTERNAL | | | | performed at [facility];[address] | | LAB | | | | [address];[place], [place] | | | | | | [address] | | | | + + + + + + + + | Specimen | + + | Blood specimen | | (specimen) | + + + +---------+ + + | Performing | Address | City/State/Zipcode | Phone Number | | Organization | | | | + +---------+ + + | EXTERNAL LAB | | | | + +---------+ + + Acetaminophen Level (11/15/2013 4:08 AM PST) + + + + + + | Component | Value | Ref Range | Performed | Pathologist | | | | | At | Signature | + + + + + + | ACETAMINOPH | 9.9 (L)Comment: Testing | 10.0 - 30.0 | EXTERNAL | | | EN LEVEL | performed at [facility];[address] | ug/mL | LAB | | | | [address];[place], [place] | | | | | | [address] | | | | + + + + + + + + | Specimen | + + | Blood specimen | | (specimen) | + + + +---------+ + + | Performing | Address | City/State/Zipcode | Phone Number | | Organization | | | | + +---------+ + + | EXTERNAL LAB | | | | + +---------+ + + Comprehensive Metabolic Panel (11/15/2013 4:08 AM PST) + + + + + + | Component | Value | Ref Range | Performed | Pathologist | | | | | At | Signature | + + + + + + | Na | 148 (H)Comment: Testing | 135 - 143 | EXTERNAL | | | | performed at [facility];[address] | mmol/L | LAB | | | | [address];[place] | | | | | | [address] | | | | + + + + + + | K | 3.2 (L)Comment: Testing | 3.5 - 4.9 | EXTERNAL | | | | performed at [facility];[address] | mmol/L | LAB | | | | [address];[place] | | | | | | [address] | | | | + + + + + + | Cl | 117 (H)Comment: Testing | 99 - 109 mmol/L | EXTERNAL | | | | performed at [facility];[address] | | LAB | | | | [address];[place] | | | | | | [address] | | | | + + + + + + | CO2 | 13 (LL)Comment: CO2 | 23 - 32 mmol/L | EXTERNAL | | | | PHONED TO AIDEE Butt AT | | LAB | | | | 0520 BY LJREAD BACK | | | | | | RESULTS VERIFIEDTesting | | | | | | performed at [facility];[address] | | | | | | [address];[place] | | | | | | [address] | | | | + + + + + + | Anion Gap | 20Comment: Testing | 5 - 20 mmol/L | EXTERNAL | | | | performed at [facility];[address] | | LAB | | | | [address];[place] | | | | | | [address] | | | | + + + + + + | Glucose, | 130 (H)Comment: Testing | 65 - 99 mg/dL | EXTERNAL | | | Fasting | performed at [facility];[address] | | LAB | | | | [address];[place] | | | | | | [address] | | | | + + + + + + | BUN | 8Comment: Testing | 8 - 25 mg/dL | EXTERNAL | | | | performed at [facility];[address] | | LAB | | | | [address];[place] | | | | | | [address] | | | | + + + + + + | Creatinine | 0.69Comment: Testing | 0.50 - 1.00 | EXTERNAL | | | | performed at [facility];[address] | mg/dL | LAB | | | | [address];[place] | | | | | | [address] | | | | + + + + + + | BUN/Creatin | 12Comment: Testing | | EXTERNAL | | | ine Ratio | performed at [facility];[address] | | LAB | | | | [address];[place] | | | | | | [address] | | | | + + + + + + | Calcium | 6.7 (L)Comment: Testing | 8.5 - 10.2 | EXTERNAL | | | | performed at [facility];[address] | mg/dL | LAB | | | | [address];[place] | | | | | | [address] | | | | + + + + + + | Protein, | 5.2 (L)Comment: Testing | 6.3 - 8.2 g/dL | EXTERNAL | | | Total | performed at [facility];[address] | | LAB | | | | [address];[place] | | | | | | [address] | | | | + + + + + + | Albumin | 3.3Comment: Testing | 3.3 - 4.8 g/dL | EXTERNAL | | | | performed at [facility];[address] | | LAB | | | | [address];[place] | | | | | | [address] | | | | + + + + + + | Globulin | 1.9Comment: Testing | 1.3 - 4.9 g/dL | EXTERNAL | | | | performed at [facility];[address] | | LAB | | | | [address];[place] | | | | | | [address] | | | | + + + + + + | A/G Ratio | 1.8Comment: Testing | 1.0 - 2.4 | EXTERNAL | | | | performed at [facility];[address] | | LAB | | | | [address];[place] | | | | | | [address] | | | | + + + + + + | Bilirubin | 0.2Comment: Testing | 0.1 - 1.5 mg/dL | EXTERNAL | | | Total | performed at [facility];[address] | | LAB | | | | [address];[place] | | | | | | [address] | | | | + + + + + + | ALP, | 47Comment: Testing | 35 - 115 U/L | EXTERNAL | | | External | performed at [facility];[address] | | LAB | | | | [address];[place] | | | | | | [address] | | | | + + + + + + | AST | 49 (H)Comment: Testing | 10 - 45 U/L | EXTERNAL | | | | performed at [facility];[address] | | LAB | | | | [address];[place] | | | | | | [address] | | | | + + + + + + | ALT | 61Comment: Testing | 10 - 65 U/L | EXTERNAL | | | | performed at [facility];[address] | | LAB | | | | [address];[place] | | | | | | [address] | | | | + + + [...] | | | | | | at [facility];[address] [place] [address] | | | | | | [facility];[place] [address] | | | | + + + + + + + + | Specimen | + + | Blood specimen | | (specimen) | + + + +---------+ + + | Performing | Address | City/State/Zipcode | Phone Number | | Organization | | | | + +---------+ + + | EXTERNAL LAB | | | | + +---------+ + + POC Glucose (11/15/2013 12:33 AM PST) + + + + + + | Component | Value | Ref Range | Performed | Pathologist | | | | | At | Signature | + + + + + + | Glucose, | 86Comment: Testing | 65 - 99 mg/dL | EXTERNAL | | | Fingerstick | performed at [facility];[address] | | LAB | | | | [address];[place] | | | | | | [address] | | | | + + + + + + + + | Specimen | + + | | + + + +---------+ + + | Performing | Address | City/State/Zipcode | Phone Number | | Organization | | | | + +---------+ + + | EXTERNAL LAB | | | | + +---------+ + + POC CG 4, ISTAT Arterial (11/14/2013 11:47 PM PST) + + + + + + | Component | Value | Ref Range | Performed | Pathologist | | | | | At | Signature | + + + + + + | PH ART | 7.141 (LL)Comment: | 7.350 - 7.450 | EXTERNAL | | | | Testing performed at | | LAB | | | | [facility];[address];[place] [address] | | | | + + + + + + | PCO2 ART | 40Comment: Testing | 35 - 45 mmHg | EXTERNAL | | | | performed at [facility];[address] | | LAB | | | | [address];[place] | | | | | | [address] | | | | + + + + + + | PO2 ART | 283 (H)Comment: Testing | 80 - 105 mmHg | EXTERNAL | | | | performed at [facility];[address] | | LAB | | | | [address];[place] | | | | | | [address] | | | | + + + + + + | Lactate, | 3.7 (H)Comment: Testing | 0.36 - 1.25 | EXTERNAL | | | Arterial | performed at [facility];[address] | mmol/L | LAB | | | | [address];[place] | | | | | | [address] | | | | + + + + + + | HCO3 ART | 14 (L)Comment: Testing | 22 - 26 mmol/L | EXTERNAL | | | | performed at [facility];[address] | | LAB | | | | [address];[place] | | | | | | [address] | | | | + + + + + + | POC | 15 (L)Comment: Testing | 23 - 27 mEq/L | EXTERNAL | | | APPEARANCE | performed at [facility];[address] | | LAB | | | [address] | [address];[place] | | | | | | [address] | | | | + + + + + + | Base | 15 (H)Comment: Testing | 0.0 - 2.0 | EXTERNAL | | | deficit | performed at [facility];[address] | mmol/L | LAB | | | | [address];[place] | | | | | | [address] | | | | + + + + + + | O2 SAT ART | 100 (H)Comment: Testing | 95 - 98 % | EXTERNAL | | | | performed at [facility];[address] | | LAB | | | | [address];[place] | | | | | | [address] | | | | + + + + + + | FiO2, POC | 70Comment: Testing | % | EXTERNAL | | | | performed at [facility];[address] | | LAB | | | | [address];[place] | | | | | | [address] | | | | + + + + + + | Comment, | Tidal Volume = | | EXTERNAL | | | POC | 500Comment: Peep = 5Resp | | LAB | | | | Rate = 15Testing | | | | | | performed at [facility];[address] | | | | | | [address];[place] | | | | | | [address] | | | | + + + + + + + + | Specimen | + + | | + + + +---------+ + + | Performing | Address | City/State/Zipcode | Phone Number | | Organization | | | | + +---------+ + + | EXTERNAL LAB | | | | + +---------+ + + XR Chest 1 Vw (11/14/2013 11:33 PM PST) + + | Specimen | + + | | + + + + + | Impressions | Performed At | + + + | 1. Other than advancement of the central venous catheter, | | | currently with the tip at the atriocaval junction, no significant | | | interval change. Electronically signed by Mansoor Clark MD on | | | 11/14/2013 11:39 PM | | + + + + + + | Narrative | Performed At | + + + | [facility] GUTIERREZTYFAWTHROP XR CHEST 1 VIEW 11/14/2013 11:33 PM | | | HISTORY: Assessment for life support lines and tubes. TECHNIQUE: | | | AP chest film 2344 hrs. COMPARISON: AP chest film 11/14/13 at | | | 2030 hrs. FINDINGS: The well-positioned endotracheal tube and | | | nasogastric tube are unchanged. The right internal jugular central | | | venous catheter has been advanced, currently with the tip at the | | | atriocaval junction Patchy bilateral airspace disease is again seen, | | | relatively unchanged, most significant in the right midlung field. | | | No pneumothorax or pleural effusion is found. The cardiac silhouette | | | is normal. Mild unchanged scoliosis is again found. Cholecystectomy | | | clips are again seen. | | + + + + + | Procedure Note | + + | Reji Pacheco Conversion - 06/15/2019 1:42 PM PDT [facility] WAYNEFAWTHROPXR CHEST 1 | | VIEW11/14/2013 11:33 PM HISTORY:Assessment for life support lines and tubes. TECHNIQUE:AP | | chest film 2344 hrs. COMPARISON:AP chest film 11/14/13 at 2030 hrs. FINDINGS:The | | well-positioned endotracheal tube and nasogastric tube are unchanged. The right internal | | jugular central venous catheter has been advanced, currently with the tip at the | | atriocaval junction Patchy bilateral airspace disease is again seen, relatively | | unchanged, most significant in the right midlung field. No pneumothorax or pleural | | effusion is found. The cardiac silhouette is normal. Mild unchanged scoliosis is again | | found. Cholecystectomy clips are again seen. IMPRESSION: 1. Other than advancement of | | the central venous catheter, currently with the tip at the atriocaval junction, no | | significant interval change. | | 11:39 PM | | | |FINDINGS: | |The well-positioned endotracheal tube and nasogastric tube are unchanged. The right interna l jugular central venous catheter has been advanced, currently with the tip at the atriocava l junction Patchy bilateral | |airspace disease is again seen, relatively | |unchanged, most significant in the right midlung field. No pneumothorax or pleural effusion is found. The cardiac silhouette is normal. Mild unchanged scoliosis is again found. Cholec ystectomy clips are again seen. | | | |IMPRESSION: | |1. Other than advancement of the central venous catheter, currently with the tip at the at riocaval junction, no significant interval change. | | | | | + + Lactic Acid (11/14/2013 9:17 PM PST) + + + + + + | Component | Value | Ref Range | Performed | Pathologist | | | | | At | Signature | + + + + + + | Lactate | 3.4 (H)Comment: Testing | 0.4 - 2.0 | EXTERNAL | | | | performed at [facility];[address] | mmol/L | LAB | | | | [address];[place], [place] | | | | | | [address] | | | | + + + + + + + + | Specimen | + + | Blood specimen | | (specimen) | + + + +---------+ + + | Performing | Address | City/State/Zipcode | Phone Number | | Organization | | | | + +---------+ + + | EXTERNAL LAB | | | | + +---------+ + + Calcium, Ionized (11/14/2013 9:15 PM PST) + + + + + + | Component | Value | Ref Range | Performed | Pathologist | | | | | At | Signature | + + + + + + | Calcium | 0.99 (L)Comment: Testing | 1.08 - 1.25 | EXTERNAL | | | (Calc) | performed at [facility];[address] | mmol/L | LAB | | | | [address];[place] | | | | | | [address] | | | | + + + + + + | pH, Bld | 7.179 (L)Comment: | 7.300 - 7.450 | EXTERNAL | | | | Testing performed at | | LAB | | | | [facility];[address] [facility] | | | | | | [address];[place] [address] | | | | + + + + + + + + | Specimen | + + | Blood specimen | | (specimen) | + + + +---------+ + + | Performing | Address | City/State/Zipcode | Phone Number | | Organization | | | | + +---------+ + + | EXTERNAL LAB | | | | + +---------+ + + PTT (11/14/2013 9:13 PM PST) + + + + + + | Component | Value | Ref Range | Performed | Pathologist | | | | | At | Signature | + + + + + + | aPTT, | 26Comment: Testing | 23 - 32 seconds | EXTERNAL | | | Patient | performed at [facility] | | LAB | | | | [address];[place], [place] | | | | | | [address] | | | | + + + + + + + + | Specimen | + + | Blood specimen | | (specimen) | + + + +---------+ + + | Performing | Address | City/State/Zipcode | Phone Number | | Organization | | | | + +---------+ + + | EXTERNAL LAB | | | | + +---------+ + + Protime INR (11/14/2013 9:13 PM PST) + + + + + [...] | | | | | performed at [facility];[address] | | | | | | [address];[place], [place] | | | | | | [address] | | | | + + + + + + + + | Specimen | + + | Blood specimen | | (specimen) | + + + +---------+ + + | Performing | Address | City/State/Zipcode | Phone Number | | Organization | | | | + +---------+ + + | EXTERNAL LAB | | | | + +---------+ + + External Lab: CBC (11/14/2013 9:13 PM PST) + + + + + + | Component | Value | Ref Range | Performed | Pathologist | | | | | At | Signature | + + + + + + | WBC | 12.2 (H)Comment: Testing | 3.8 - 11.0 K/uL | EXTERNAL | | | | performed at [facility];[address] | | LAB | | | | [address];[place] | | | | | | [address] | | | | + + + + + + | RED CELL | 4.41Comment: Testing | 3.70 - 5.10 | EXTERNAL | | | COUNT | performed at [facility];[address] | M/uL | LAB | | | | [address];[place] | | | | | | [address] | | | | + + + + + + | Hgb | 12.7Comment: Testing | 11.3 - 15.5 | EXTERNAL | | | | performed at [facility];[address] | g/dL | LAB | | | | [address];[place] | | | | | | [address] | | | | + + + + + + | Hematocrit, | 37.4Comment: Testing | 34.0 - 46.0 % | EXTERNAL | | | POC | performed at [facility];[address] | | LAB | | | | [address];[place] | | | | | | [address] | | | | + + + + + + | MCV | 84.7Comment: Testing | 80.0 - 100.0 fl | EXTERNAL | | | | performed at [facility];[address] | | LAB | | | | [address];[place] | | | | | | [address] | | | | + + + + + + | MCH | 28.8Comment: Testing | 27.0 - 34.0 pg | EXTERNAL | | | | performed at [facility];[address] | | LAB | | | | [address];[place] | | | | | | [address] | | | | + + + + + + | MCHC | 34.0Comment: Testing | 32.0 - 35.5 | EXTERNAL | | | | performed at [facility];[address] | g/dL | LAB | | | | [address];[place] | | | | | | [address] | | | | + + + + + + | RDW-CV | 37.2Comment: Testing | 37 - 53 fl | EXTERNAL | | | | performed at [facility];[address] | | LAB | | | | [address];[place] | | | | | | [address] | | | | + + + + + + | Platelet | 296Comment: Testing | 150 - 400 K/uL | EXTERNAL | | | Count | performed at [facility];[address] | | LAB | | | Plasma | [address];[place] | | | | | | [address] | | | | + + + + + + | MPV | 7.2Comment: Testing | fl | EXTERNAL | | | | performed at [facility];[address] | | LAB | | | | [address];[place] | | | | | | [address] | | | | + + + + + + | Differentia | AUTOMATEDComment: | | EXTERNAL | | | l Type | Testing performed at | | LAB | | | | [facility];[address];[place] [address] | | | | + + + + + + | % Segmented | 55.4 | % | EXTERNAL | | | | | | LAB | | | Neutrophils | | | | | + + + + + + | % | 39.5 | % | EXTERNAL | | | Lymphocytes | | | LAB | | + + + + + + | % Monocytes | 4.5 | % | EXTERNAL | | | | | | LAB | | + + + + + + | % | 0.2 | % | EXTERNAL | | | Eosinophils | | | LAB | | + + + + + + | % Basophils | 0.4 | % | EXTERNAL | | | | | | LAB | | + + + + + + | Absolute | 6.7 | 1.9 - 7.4 K/uL | EXTERNAL | | | Segmented | | | LAB | | | Neutrophils | | | | | + + + + + + | Absolute | 4.8 (H) | 1.0 - 3.9 K/uL | EXTERNAL | | | Lymphocytes | | | LAB | | + + + + + + | Absolute | 0.5 | 0 - 0.8 K/uL | EXTERNAL | | | Monocytes | | | LAB | | + + + + + + | Absolute | 0.0 | 0 - 0.5 K/uL | EXTERNAL | | | Eosinophils | | | LAB | | + + + + + + | Absolute | 0.0 | 0 - 0.1 K/uL | EXTERNAL | | | Basophils | | | LAB | | + + + + + + + + | Specimen | + + | Blood specimen | | (specimen) | + + + +---------+ + + | Performing | Address | City/State/Zipcode | Phone Number | | Organization | | | | + +---------+ + + | EXTERNAL LAB | | | | + +---------+ + + Phosphorus (11/14/2013 9:13 PM PST) + + + + + + | Component | Value | Ref Range | Performed | Pathologist | | | | | At | Signature | + + + + + + | PHOSPHORUS | 2.4Comment: Testing | 2.3 - 4.8 mg/dL | EXTERNAL | | | | performed at [facility];[address] | | LAB | | | | [address];[place] | | | | | | [address] | | | | + + + + + + + + | Specimen | + + | Blood specimen | | (specimen) | + + + +---------+ + + | Performing | Address | City/State/Zipcode | Phone Number | | Organization | | | | + +---------+ + + | EXTERNAL LAB | | | | + +---------+ + + Magnesium (11/14/2013 9:13 PM PST) + + + + + + | Component | Value | Ref Range | Performed | Pathologist | | | | | At | Signature | + + + + + + | Magnesium | 1.7Comment: Testing | 1.7 - 2.4 mg/dL | EXTERNAL | | | | performed at [facility] | | LAB | | | | [address];[place], [place] | | | | | | [address] | | | | + + + + + + + + | Specimen | + + | Blood specimen | | (specimen) | + + + +---------+ + + | Performing | Address | City/State/Zipcode | Phone Number | | Organization | | | | + +---------+ + + | EXTERNAL LAB | | | | + +---------+ + + Acetaminophen Level (11/14/2013 9:13 PM PST) + + + + + + | Component | Value | Ref Range | Performed | Pathologist | | | | | At | Signature | + + + + + + | ACETAMINOPH | 44.4 (H)Comment: Testing | 10.0 - 30.0 | EXTERNAL | | | EN LEVEL | performed at [facility];888 | ug/mL | LAB | | | | [address];[place] | | | | | | [address] | | | | + + + + + + + + | Specimen | + + | Blood specimen | | (specimen) | + + + +---------+ + + | Performing | Address | City/State/Zipcode | Phone Number | | Organization | | | | + +---------+ + + | EXTERNAL LAB | | | | + +---------+ + + Hepatic Function Panel (11/14/2013 9:13 PM PST) + + + + + + | Component | Value | Ref Range | Performed | Pathologist | | | | | At | Signature | + + + + + + | Protein, | 5.6 (L)Comment: Testing | 6.3 - 8.2 g/dL | EXTERNAL | | | Total | performed at [facility];[address] | | LAB | | | | [address];[place] | | | | | | [address] | | | | + + + + + + | Albumin | 3.1 (L)Comment: Testing | 3.3 - 4.8 g/dL | EXTERNAL | | | | performed at [facility];[address] | | LAB | | | | [address];[place] | | | | | | [address] | | | | + + + + + + | Bilirubin | 0.2Comment: Testing | 0.1 - 1.5 mg/dL | EXTERNAL | | | Total | performed at [facility];[address] | | LAB | | | | [address];[place] | | | | | | [address] | | | | + + + + + + | Bilirubin | <0.1Comment: Testing | 0.0 - 0.3 mg/dL | EXTERNAL | | | Direct | performed at [facility];[address] | | LAB | | | | [address];[place] | | | | | | [address] | | | | + + + + + + | ALP, | 76Comment: Testing | 35 - 115 U/L | EXTERNAL | | | External | performed at [facility];[address] | | LAB | | | | [address];[place] | | | | | | [address] | | | | + + + + + + | AST | 75 (H)Comment: Testing | 10 - 45 U/L | EXTERNAL | | | | performed at [facility];[address] | | LAB | | | | [address];[place] | | | | | | [address] | | | | + + + + + + | ALT | 67 (H)Comment: Testing | 10 - 65 U/L | EXTERNAL | | | | performed at [facility];[address] | | LAB | | | | [address];[place] | | | | | | [address] | | | | + + + + + + + + | Specimen | + + | | + + + +---------+ + + | Performing | Address | City/State/Zipcode | Phone Number | | Organization | | | | + +---------+ + + | EXTERNAL LAB | | | | + +---------+ + + Basic Metabolic Panel (11/14/2013 9:13 PM PST) + + + + + + | Component | Value | Ref Range | Performed | Pathologist | | | | | At | Signature | + + + + + + | Na | 143Comment: Testing | 135 - 143 | EXTERNAL | | | | performed at [facility];[address] | mmol/L | LAB | | | | [address];[place] | | | | | | [address] | | | | + + + + + + | K | 3.0 (L)Comment: Testing | 3.5 - 4.9 | EXTERNAL | | | | performed at [facility];[address] | mmol/L | LAB | | | | [address];[place] | | | | | | [address] | | | | + + + + + + | Cl | 114 (H)Comment: Testing | 99 - 109 mmol/L | EXTERNAL | | | | performed at [facility];[address] | | LAB | | | | [address];[place] | | | | | | [address] | | | | + + + + + + | CO2 | 16 (L)Comment: Testing | 23 - 32 mmol/L | EXTERNAL | | | | performed at [facility];[address] | | LAB | | | | [address];[place] | | | | | | [address] | | | | + + + + + + | Anion Gap | 16Comment: Testing | 5 - 20 mmol/L | EXTERNAL | | | | performed at [facility];[address] | | LAB | | | | [address];[place] | | | | | | [address] | | | | + + + + + + | Glucose, | 187 (H)Comment: Testing | 65 - 99 mg/dL | EXTERNAL | | | Fasting | performed at [facility];[address] | | LAB | | | | [address];[place] | | | | | | [address] | | | | + + + + + + | BUN | 10Comment: Testing | 8 - 25 mg/dL | EXTERNAL | | | | performed at [facility];[address] | | LAB | | | | [address];[place] | | | | | | [address] | | | | + + + + + + | Creatinine | 0.79Comment: Testing | 0.50 - 1.00 | EXTERNAL | | | | performed at [facility];[address] | mg/dL | LAB | | | | [address];[place] | | | | | | [address] | | | | + + + + + + | BUN/Creatin | 13Comment: Testing | | EXTERNAL | | | ine Ratio | performed at [facility];[address] | | LAB | | | | [address];[place] | | | | | | [address] | | | | + + + + + + | Calcium | 6.5 (L)Comment: Testing | 8.5 - 10.2 | EXTERNAL | | | | performed at [facility];[address] | mg/dL | LAB | | | | [address];[place] | | | | | | [address] | | | | + + + [...] | | | | | | at [facility];[address] | | | | [address];[place] [address] | | | | + + + + + + + + | Specimen | + + | Blood specimen | | (specimen) | + + + +---------+ + + | Performing | Address | City/State/Zipcode | Phone Number | | Organization | | | | + +---------+ + + | EXTERNAL LAB | | | | + +---------+ + + CT Head wo Contrast (11/14/2013 8:58 PM PST) + + | Specimen | + + | | + + + + + | Impressions | Performed At | + + + | 1. No acute intracranial pathology. 2. 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 3. | | | Senescent changes, as above. | | + + + + + + | Narrative | Performed At | + + + | RONALD WASHBURNHRLEIGH[facility] [address] HEAD WO | | | CONTRAST 11/14/2013 8:58 PM INDICATION: Unresponsive. Intubated. | | | COMPARISON: None TECHNIQUE: CT scan of the head without | | | contrast. 5-mm axial noncontrast images were acquired from the | | | foramen magnum through the cranial vertex. FINDINGS: An ovoid low | | | density focus in the right lentiform nucleus measures 10 mm greatest | | | dimension, probably a lacunar infarct, versus less likely a dilated | | | perivascular space. There is no evidence of acute infarct. Mild | | | supratentorial white matter disease is noted, likely white matter | | | ischemic gliosis. No intracranial mass or hemorrhage is found. Mild | | | probable age-related volume loss is noted with associated ventricular | | | prominence, without hydrocephalus. No orbital abnormalities are found. | | | The paranasal sinuses are clear. No mastoid fluid is found. | | | Degenerative changes of the right temporomandibular joint are noted. | | | No worrisome lytic or blastic bony lesions are found. | | + + + + + | Procedure Note | + + | Junior, Rad Conversion - 06/15/2019 1:42 PM PDT RONALD [id number] years | | FemaleCT HEAD WO CONTRAST11/14/2013 8:58 PM INDICATION: Unresponsive. Intubated. | | COMPARISON: None TECHNIQUE: CT scan of the head without contrast. 5-mm axial | | noncontrast images were acquired from the foramen magnum through the cranial vertex. | | FINDINGS: An ovoid low density focus in the right lentiform nucleus measures 10 mm | | greatest dimension, probably a lacunar infarct, versus less likely a dilated | | perivascular space. There is no evidence of acute infarct. Mild supratentorial white | | matter disease is noted, likely white matter ischemic gliosis. No intracranial mass or | | hemorrhage is found. Mild probable age-related volume loss is noted with associated | | ventricular prominence, without hydrocephalus. No orbital abnormalities are found. The | | paranasal sinuses are clear. No mastoid fluid is found. Degenerative changes of the | | right temporomandibular joint are noted. No worrisome lytic or blastic bony lesions are | | found. IMPRESSION: 1. No acute intracranial pathology. 2. Hypodense focus in the right | | lentiform was, probably old lacunar infarct. 3. Senescent changes, as above. | | | | | |IMPRESSION: | |1. No acute intracranial pathology. | | | |2. Hypodense focus in the right lentiform was, probably old lacunar infarct. | | | |3. Senescent changes, as above. | | | | | + + XR Chest 1 Vw (11/14/2013 8:56 PM PST) + + | Specimen | + + | | + + + + | Addenda | + + | Addendum by Mansoor Clark MD on 11/14/2013 11:35 PM Also seen is a left | | internal jugular approach central venous catheter, the tip overlying the region of | | the mid to distal superior vena cava. | + + + + + | Impressions | Performed At | + + + | 1. Status post intubation and placement of nasogastric tube, as | | | above. 2. Nonspecific patchy bilateral airspace disease, | | | potentially pneumonia or pulmonary alveolar edema. Electronically | | | signed by Mansoor Clark MD on 11/14/2013 9:10 PM | | + + + + + + | Narrative | Performed At | + + + | RONALD WASHBURNHRLEIGHANN XR CHEST 1 VIEW 11/14/2013 8:56 PM | | | HISTORY: Respiratory failure. TECHNIQUE: AP chest film. | | | COMPARISON: None. FINDINGS: A well-positioned endotracheal tube | | | is noted. Patchy airspace disease is noted bilaterally, most | | | significant in the right midlung field. No pneumothorax or pleural | | | effusion is found. The cardiac silhouette is normal. A nasogastric | | | tube is present, with the tip extending to the gastric body, and | | | probably off of the film. Moderate gastric distention is noted. An | | | ovoid artifact likely overlies the stomach. Mild convex right | | | curvature of the thoracic spine is found. Mild convex left curvature | | | of the upper lumbar spine is seen. No worrisome lytic or blastic | | | bony lesions are observed. Cholecystectomy clips are observed. | | + + + + + | Procedure Note | + + | Junior, Rad Conversion - 06/15/2019 1:42 PM PDT RONALD GUTIERREZTYFAWTHROPXR CHEST 1 | | VIEW11/14/2013 8:56 PM HISTORY:Respiratory failure. TECHNIQUE:AP chest film. | | COMPARISON:None. FINDINGS:A well-positioned endotracheal tube is noted. Patchy airspace | | disease is noted bilaterally, most significant in the right midlung field. No | | pneumothorax or pleural effusion is found. The cardiac silhouette is normal. A | | nasogastric tube is present, with the tip extending to the gastric body, and probably | | off of the film. Moderate gastric distention is noted. An ovoid artifact likely overlies | | the stomach. Mild convex right curvature of the thoracic spine is found. Mild convex | | left curvature of the upper lumbar spine is seen. No worrisome lytic or blastic bony | | lesions are observed. Cholecystectomy clips are observed. IMPRESSION: 1. Status post | | intubation and placement of nasogastric tube, as above. 2. Nonspecific patchy bilateral | | airspace disease, potentially pneumonia or pulmonary alveolar edema. Electronically | | signed by Mansoor Clark MD on 11/14/2013 9:10 PM | |FINDINGS: | |A well-positioned endotracheal tube is noted. Patchy airspace disease is noted bilaterally, most significant in the right midlung field. No pneumothorax or pleural effusion is found. The cardiac silhouette is | |normal. A nasogastric tube is present, with | |the tip extending to the gastric body, and probably off of the film. Moderate gastric diste ntion is noted. An ovoid artifact likely overlies the stomach. Mild convex right curvature o f the thoracic spine is found. | |Mild convex left curvature of the upper | |lumbar spine is seen. No worrisome lytic or blastic bony lesions are observed. Cholecystect jessica clips are observed. | | | |IMPRESSION: | |1. Status post intubation and placement of nasogastric tube, as above. | | | |2. Nonspecific patchy bilateral airspace disease, potentially pneumonia or pulmonary alveo lar edema. | | | | | + + Gram Stain, reflex Sputum Culture (11/14/2013 8:55 PM PST) + + | Specimen | + + | Body fluid sample | | (specimen) | + + + + + | Narrative | Performed At | + + + | Specimen Description TRACHEAL ASPIRATE | EXTERNAL LAB | | Testing performed at | | | [facility];[address] [facility];[place] [address] GRAM STAIN | | | GREATER THAN 10 WBCS/LPF | | | LESS THAN 10 SEC/LPF | | | 2+ GRAM POSITIVE COCCI | | | 1+ GRAM POSITIVE RODS | | | Testing performed at [facility], [address] | | [place] [address] CULTURE | | | 2+ NORMAL UPPER RESPIRATORY CURTIS | | | Testing performed at [facility], [address] | | | [place] [address] REPORT STATUS | | | 11/16/2013 FINAL | | + + + + +---------+ + + | Performing | Address | City/State/Zipcode | Phone Number | | Organization | | | | + +---------+ + + | EXTERNAL LAB | | | | + +---------+ + + Urinalysis, Microscopic Only (11/14/2013 7:30 PM PST) + + + + + + | Component | Value | Ref Range | Performed | Pathologist | | | | | At | Signature | + + + + + + | WBC, UA | 1-5Comment: Testing | 0 - 5 /hpf | EXTERNAL | | | | performed at [facility];[address] | | LAB | | | | [address];[place] | | | | | | [address] | | | | + + + + + + | RBC, UA | 0-2Comment: Testing | 0 - 5 /hpf | EXTERNAL | | | | performed at [facility];[address] | | LAB | | | | [address];[place] | | | | | | [address] | | | | + + + + + + | Epithelial | NONE SEENComment: | /lpf | EXTERNAL | | | Cells | Testing performed at | | LAB | | | | [facility];[address];[place] [address] | | | | + + + + + + | Bacteria, | TRACE (A)Comment: | | EXTERNAL | | | UA | Testing performed at | | LAB | | | | [facility];[address] [place] [address] | | | | | | [facility];[place] [address] | | | | + + + + + + + + | Specimen | + + | | + + + +---------+ + + | Performing | Address | City/State/Zipcode | Phone Number | | Organization | | | | + +---------+ + + | EXTERNAL LAB | | | | + +---------+ + + Urinalysis with Microscopic if Indicated (11/14/2013 7:30 PM PST) + + + + + + | Component | Value | Ref Range | Performed | Pathologist | | | | | At | Signature | + + + + + + | Color | OTHERComment: Testing | | EXTERNAL | | | | performed at [facility];[address] | | LAB | | | | [address];[place] | | | | | | [address] | | | | + + + + + + | Clarity | CLEARComment: Testing | | EXTERNAL | | | | performed at [facility];[address] | | LAB | | | | [address];[place] | | | | | | [address] | | | | + + + + + + | Specific | 1.004Comment: Testing | 1.001 - 1.035 | EXTERNAL | | | [place] | performed at [facility];[address] | | LAB | | | | [address];[place] | | | | | | [address] | | | | + + + + + + | Leukocyte | TRACE (A)Comment: | | EXTERNAL | | | Esterase, | Testing performed at | | LAB | | | Urine | [facility];[address];[place] [address] | | | | + + + + + + | Nitrite, | NEGATIVEComment: Testing | | EXTERNAL | | | Urine | performed at [facility];[address] | | LAB | | | | [address];[place] | | | | | | [address] | | | | + + + + + + | Urobilinoge | 0.2Comment: Testing | mg/dL | EXTERNAL | | | n, Urine | performed at [facility];[address] | | LAB | | | | [address];[place] | | | | | | [address] | | | | + + + + + + | Protein, | NEGATIVEComment: Testing | mg/dL | EXTERNAL | | | Urine | performed at [facility];[address] | | LAB | | | | [address];[place] | | | | | | [address] | | | | + + + + + + | pH, Urine | 5.0Comment: Testing | 4.6 - 8.0 | EXTERNAL | | | | performed at [facility];[address] | | LAB | | | | [address];[place] | | | | | | [address] | | | | + + + + + + | Blood, | NEGATIVEComment: Testing | | EXTERNAL | | | Urine | performed at [facility];[address] | | LAB | | | | [address];[place] | | | | | | [address] | | | | + + + + + + | Ketones | NEGATIVEComment: Testing | mg/dL | EXTERNAL | | | | performed at [facility];[address] | | LAB | | | | [address];[place] | | | | | | [address] | | | | + + + + + + | Bilirubin, | NEGATIVEComment: Testing | | EXTERNAL | | | Urine | performed at [facility];[address] | | LAB | | | | [address];[place] | | | | | | [address] | | | | + + + + + + | Glucose, | NEGATIVEComment: Testing | mg/dL | EXTERNAL | | | Urine | performed at [facility];[address] | | LAB | | | | [address] | | | | | | [address] | | | | + + + + + + + + | Specimen | + + | Urine specimen | | (specimen) | + + + +---------+ + + | Performing | Address | City/State/Zipcode | Phone Number | | Organization | | | | + +---------+ + + | EXTERNAL LAB | | | | + +---------+ + + MRSA NAAT (11/14/2013 7:30 PM PST) + + | Specimen | + + | | + + + + + | Narrative | Performed At | + + + | SOURCE NARES(NOSE) | EXTERNAL LAB | | Testing performed at [facility];[address] [place] [address];[place] [address] MRSA PCR | | | NEGATIVE Testing performed at | | | [address];[place] [address] | | + + + + +---------+ + + | Performing | Address | City/State/Zipcode | Phone Number | | Organization | | | | + +---------+ + + | EXTERNAL LAB | | | | + +---------+ + + POC Glucose (11/14/2013 7:20 PM PST) + + + + + + | Component | Value | Ref Range | Performed | Pathologist | | | | | At | Signature | + + + + + + | Glucose, | 154 (H)Comment: Testing | 65 - 99 mg/dL | EXTERNAL | | | Fingerstick | performed at [facility];[address] | | LAB | | | | [address];[place], [place] | | | | | | [address] | | | | + + + [...] + | Diagnosis | + + | Hypothyroid Unspecified hypothyroidism | + + | History of oral aphthous ulcers Personal history of other diseases of digestive | | system | + + | Anemia, unspecified | + + | Aspiration pneumonia (HCC) Pneumonitis due to inhalation of food or vomitus | + + | COPD (chronic obstructive pulmonary disease) (HCC) Chronic airway obstruction, not | | elsewhere classified | + + | Generalized anxiety disorder | + + | Low back ache Lumbago | + + | Gait difficulty Abnormality of gait | + + | Impaired mobility and ADLs Mechanical problems with limbs | + + | Anxiety state, unspecified | + + documented in this encounter
--- OUTSIDE RECORDS SUMMARY | ~2019-09-24 | XMS | Encounter Summary ---
Demographics + + + | Address | [address] | | | [place] [address] | + + + | Home Phone | | + + + | Preferred Language | Unknown | + + + | Marital Status | Single | + + + | Buddhist Affiliation | NON | + + + | Race | White | + + + | Ethnic Group | Not or | + + + Author + + + | Author | [facility] | + + + | Organization | [facility] | + + + | Address | Unknown | + + + | Phone | Unavailable | + + + Support + + +---------+ + | Name | Relationship | Address | Phone | + + +---------+ + | Royce Menchaca | ECON | Unknown | | + + +---------+ + Care Team Providers + +------+ + | Care Motor Vehicle Dispatcher Name | Role | Phone | + +------+ + | Miquel Calhoun MD | PCP | | + +------+ + Encounter Details +--------+ + + + + | Date | Type | Department | Care Team | Description | +--------+ + + + + | 10/18/ | Telephone | [facility] | Khushbu Cortez, | | | 2012 | | [facility] | [employer] [place], [place] | | | | | [address] | [address] | | | | | [address] | | | | | | A[place] | | | | | | [place], [place] | | | | | | [address] | | | | | | [phone] | | | +--------+ + + + [...]
--- OUTSIDE RECORDS SUMMARY | ~2019-09-24 | XMS | Encounter Summary ---
Demographics + + + | Address | [address] | | | [place] [address] | + + + | Home Phone | | + + + | Preferred Language | Unknown | + + + | Marital Status | | + + + | [employer] Affiliation | 1013 | + + + [...] Team Providers + +------+ + | Care Electronic Resources Librarian Name | Role | Phone | [...] | | | | CENTER [address] | [place] | Dx) | | | | [place] | [id number] | | | | | [address] | | | | | | [phone] | | | +--------+ + + + [...] [place] | | | | | | [address] | | | | | | | [...]
--- OUTSIDE RECORDS SUMMARY | ~2019-09-24 | XMS | Encounter Summary ---
Demographics + + + | Address | [address] | | | [place] [address] | + + + | Home Phone [...] Team Providers + +------+ + | Care Workers Compensation Claims Specialist Name | Role | Phone | [...] + + | 08/31/ | Telephone | [facility] | Denys Sibley, | Back Pain (Severe | | 2019 | | [facility] | DO [address] | pain) | | | | [address] [place], [place] | | | | | [address] | [address] | | | | | [place], [place] | | | | | | [address] | | | | | | [phone] | | | +--------+ + + + [...] | | | | | | [address] [place], [place] | | | | | | [address] | | | | | | | | +--------+---------+ + + + documented as of this encounter Visit Diagnoses Not on filedocumented in this encounter"
--- OUTSIDE RECORDS SUMMARY | ~2019-09-24 | XMS | Encounter Summary ---
Demographics + + + | Address | [address] | | | [place] [address] | + + + | Home Phone | | + + + | Preferred Language | Unknown | + + + | Marital Status | | + + + | Faith Affiliation | 1013 | + + + | Race | Unknown | + + + | Ethnic Group | Unknown | + + + Author + + + | Author | [facility] | | | and Priteshana | + + + | Organization | [facility] | | | and [...] Team Providers + +------+ + | Care City Secretary Name | Role | Phone | + [...] | | Required | | Sacroiliitis | [address] | [address] | | | | | (HCC) | [facility], | [address] | | | | | Scoliosis of | [place] [address] | [place], | | | | | lumbar | Phone: | [place] [address] | | | | | spine, | [phone] | Phone: | | | | | unspecified | Fax: | [phone] | | | | | scoliosis | [phone] | Fax: | | | | | type | | [phone] | | | | | Foraminal | [...] Scheduling Instructions | + + | Prefers [place] if possible | + + Reason for [...] low back | PA-C [address] | [place] | | | | | pain with | [address] | [address] | | | | | right-sided | [place] | Phone: | | | | | sciatica | [address] | [phone] | | | | | Facet | Phone: | Fax: | | | | | arthritis of | [phone] | [phone] | | | | | lumbar | Fax: | | | | | | region | [phone] | | | | | | Adolescent [...] + + | 07/12/ | Office | [facility] | Sj Valdes MD | SACROILIITIS | | 2017 | Visit | NEUR[address]URGERY [address] | [address] | (Primary Dx); | | | | [facility] [address] [address] | [place] [address] | Scoliosis of lumbar | | | | [place] | [phone] | spine, unspecified | | | | [address] | | scoliosis type; | | | | [phone] | | Foraminal stenosis | | | [...] this note might be different from logan french original. Sj Valdes M.D. [address] [place] [address], [address] [place] [address] NEUROSURGERY HISTORY AND PHYSICAL EXAMINATION CHIEF COMPLAINT: [...] an injection recently which is helping. T manolo patient states that most activities make her [...] LUMPECTOMY SECTION 1974 CHOLECYSTECTOMY 1998 SAH COLONOSCOPY 2010 CYSTOCELE REPAIR FRACTURE SURGERY ANKLE HYSTERECTOMY SLING [...] has no apparent deficits with short or fdc memory. MOTOR EXAM: (5 IS NORMAL) * Indicates pain limited MUSCLE/ MOVEMENT: RIGHT LEFT Deltoids 5 4+ Biceps 5 5 Triceps 5 5 Wrist Flexion 5 5 Wrist Extension 5 5 Median Intrinsics 5 4 Ulnar Intrinsics 5 4 Bottom Stop Attacher Strength 5 4 Hip Flexion 5 4* [...] extremely difficult for her physically and psycholog icaclara. She never followed through with her neuropsychiatric testing fully back in 2013 alt valeriano she continues to see a psychologist in [place]. Despite her continued evaluation, I do not [...] | | | | | | [address] [place], [place] | | | | | | [id number] | | | | | | | [...] | | | | | | region ([facility]) Left | | | | | | [...]
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
--- OUTSIDE RECORDS SUMMARY | ~2019-09-24 | XMS | Encounter Summary ---
Demographics + + + | Address | [address] | | | [place] [address] | + + + | Home Phone [...] Team Providers + +------+ + | Care Rehabilitation Inspector Name | Role | Phone | [...] + + | 05/01/ | Office | [facility] | Shay Dietz | BACK PAIN, LUMBAR | | 2012 | Visit | [address]SIATRY [address] | [address] | (Primary Dx); DISC | | | | [place], | [place], [place] | DISEASE, LUMBAR; | | | | [place] [address] | [address] | OSTEOARTHRITIS, | | | | [phone] | | LUMBOSACRAL SPINE | +--------+---------+ + + + Social History [...] - 05/01/2013 11:20 AM [facility] thirty minutes before your [...] our off ice. Please also provide a professional driver to take you home on the [...] the most recent injection was performed by [facility] on 11/09/2012. She reports good relief with [...] a letter to the caregivers at the [facility] to allow them to give her a [...] | | | | | | [address] [facility] [place] | | | | | | [id number] [...]
--- OUTSIDE RECORDS SUMMARY | ~2019-09-24 | XMS | Encounter Summary ---
Demographics + + + | Address | [address] | | | [place] [address] | + + + | Home Phone | | + + + | Preferred Language | Unknown | + + + | Marital Status | | + + + | Taoism Affiliation | 1013 | + + + | Race | Unknown | + + + | Ethnic Group | Unknown | + + + Author + + + | Author | [facility] | | | and Priteshana | + + + | Organization | [facility] | | | and [place] | + + + | Address | Unknown | + + + | Phone | Unavailable | + + + Support + + +---------+ + | Name | Relationship | Address | Phone | + + +---------+ + | Giuesppe Menchaca | ECON | Unknown | | + + +---------+ + | Nathalia Weinstein | ECON | Unknown | | + + +---------+ + Care Team Providers + +------+ + | Care General Surgery Physician Assistant Name | Role | Phone | + +------+ + | Wendi Aiken | PCP | | + +------+ + Encounter Details +--------+ + + + + | Date | Type | Department | Care Team | Description | +--------+ + + + + | 06/13/ | Hospital | [facility] | SonjaAlfredo DO | Closed compression | | 2018 | Encounter | MEDICAL CENTER | [address] | fracture of fifth | | | | CLINICAL DECISION | [place] [address] | lumbar vertebra, | | | | [address] | [phone] | initial encounter | | | | [place], [place] | | ([facility]) | | | | [address] | | | | | | [phone] | | | +--------+ + + + [...] | Blood Pressure | 100/54 | 06/13/2018 1:58 PM | | | | | PDT | | + + + + + | Pulse | 52 | 06/13/2018 1:58 PM | | | | | PDT | | + + + + + | Temperature | 36.7 C (98 F) | 06/13/2018 1:58 PM | | | | | PDT | | + + + + + | Respiratory Rate | 16 | 06/13/2018 1:58 PM | | | | | PDT | | + + + + + | Oxygen Saturation | - | - | | + + + + + | Inhaled Oxygen | - | - | | | Concentration | | | | + + + + + | Weight | 53.5 kg (118 lb) | 06/13/2018 1:58 PM | | | | | PDT | | + + + + + | Height | 154.9 cm (5' 1") | 06/13/2018 1:58 PM | | | | | PDT | | + + + + + | Body Mass Index | 22.3 | 06/13/2018 1:58 PM | | | | | PDT [...] Progress Notes Conversion Transaction, Provider Unknown - 06/13/2018 2:09 PM PDTFormatting of this note m ight be different from the original. Nurse Progress Note by Cristiane Araujo RN at 06/13/181408 Author: Crsitiane Araujo RN Service: (none) Author Type: Registered Nurse Filed: 06/13/181408 Date of Service: 06/13/181408 Status: Signed Senior Compliance Officer: Cristiane Araujo RN (Registered Nurse) Pt discharge instructions reviewed including follow-up appointments, medications, prescript ions, activity, diet, smoking cessation, and signs and symptoms to watch for and when to rah l the doctor. Verbalized understanding. IV discontinued cannula intact. Pt rides wheelcha ir to private vehicle to discharge home with adult escort and all belongings. onver hiren Transaction, Provider Unknown - 06/13/2018 10:04 AM PDT Progress Notes by Kiya Dietrich RN at 06/13/18 1005 Author: Kiya Dietrich RN Service: General Surgery Author Type: Registered Nurse Filed: 06/13/18 1001 Date of Service: 06/13/18 100 Status: Signed Senior Compliance Officer: Kiya Dietrich RN (Registered Nurse) Report given to nurse narayan in CDU, talked with DR. Casillas to get a verbal order for a di et and pain medication for stay in CDU. docume dorysed in this encounter Plan of Treatment +--------+---------+ + + + | Date | Type | Specialty | Care Team | Description | +--------+---------+ + + + | 10/15/ | Office | Pain Medicine | Denys Sibley, | | | 2018 | Visit | | DO [address] | | | | | | [place] | | | | | | [id number] | | | | | | | | +--------+---------+ + + + documented as of this encounter Procedures + +--------+ + + + | Procedure Name | Priori | Date/Time | Associated Diagnosis | Comments | | | ty | | | | + +--------+ + + + | FL C ARM < 1 HOUR | Routin | 06/13/2018 | | Results for this | | | e | 8:36 AM | | procedure are in the | | | | PDT | | results section. | + +--------+ + + + | POC GLUCOSE | Routin | 06/13/2018 | | Results for this | | | e | 6:47 AM | | procedure are in the | | | | PDT | | results section. | + +--------+ + + + documented in this encounter Results FL C-Arm < 1 Hour (06/13/2018 8:36 AM PDT) + + | Specimen | + + | | + + + + + | Impressions | Performed At | + + + | FINDINGS AND IMPRESSION: Fracture deformity of the L5 vertebral | | | body with kyphoplasty severe degenerative facet disease at L4-5 and | | | L5-S1. Disc space narrowing at L4-5 and L5-S1. Electronically | | | signed by Oskar Cardenas DO on 06/13/2018 9:34 AM | | + + + + + + | Narrative | Performed At | + + + | KORI RAJAN C-ARM FLUORO UP TO 1 HOUR HISTORY: | | | 72 years. Female. Kyphoplasty. TECHNIQUE: 2 spot fluoroscopic | | | images of the lumbar spine. 333 seconds of fluoroscopy time is | | | utilized. | | + + + + + | Procedure Note | + + | Reji Pacheco Conversion - 06/13/2019 8:20 AM TRES SCALESFAWTHROPXR C-ARM | | FLUORO UP TO 1 HOUR HISTORY:72 years. Female. Kyphoplasty. TECHNIQUE:2 spot fluoroscopic | | images of the lumbar spine. 333 seconds of fluoroscopy time is utilized. IMPRESSION: | | FINDINGS AND IMPRESSION:Fracture deformity of the L5 vertebral body with kyphoplasty | | severe degenerative facet disease at L4-5 and L5-S1. Disc space narrowing at L4-5 and | | L5-S1. | |TECHNIQUE: | |2 spot fluoroscopic images of the lumbar spine. 333 seconds of fluoroscopy time is utilized . | | | |IMPRESSION: | |FINDINGS AND IMPRESSION: | |Fracture deformity of the L5 vertebral body with kyphoplasty severe degenerative facet dise ase at L4-5 and L5-S1. Disc space narrowing at L4-5 and L5-S1. | | | | | + + POC Glucose (06/13/2018 6:47 AM PDT) + + + + + + | Component | Value | Ref Range | Performed | Pathologist | | | | | At | Signature | + + + + + + | Glucose, | 70Comment: Testing | 65 - 99 mg/dL | EXTERNAL | | | Fingerstick | performed at [facility] | [address] | | | | [address];[place] | | | | | | [address] | | | | + + + [...] vertebra, initial encounter (HCC) | + + documented in this encounter
--- OUTSIDE RECORDS SUMMARY | ~2019-09-24 | XMS | Encounter Summary ---
Demographics + + + | Address | [address] | | | [place] [address] | + + + | Home Phone [...] Providers + +------+ + | Care Junior Software Developer Name | Role | Phone | + +------+ + | Romy De La Paz MD | PCP | | + +------+ + Encounter Details +--------+ + + + + | Date | Type | Department | Care Team | Description | +--------+ + + + + | 07/18/ | Clinical | [facility] | | Radiculopathy of | | 2019 | Support | NEUROSURGERY [address] | | thoracolumbar | | | | [address] | | region; | | | | [place], [place] | | Postlaminectomy | | | | [address] | | syndrome, thoracic | | | | [phone] | | region | +--------+ + + [...] concerns feel free to call us at [phone]. documented in this encounter Progress Notes Niki [...] that she will on occasion run a Acunote ow grade fever and all tests and blood work come back negative infection, patient states she does have a history of UTI's as well. Patient was sent to [facility] for their scheduled pre-admit appointment, anesthesia consult, [...] [place] | | | | | | [address] | | | | | | | | +--------+---------+ + + + documented as of this encounter Visit Diagnoses + + | Diagnosis | + + | Radiculopathy of thoracolumbar region Thoracic or lumbosacral neuritis or | | radiculitis, unspecified | + + | Postlaminectomy syndrome, thoracic region | + + documented in this encounter
--- OUTSIDE RECORDS SUMMARY | ~2019-09-24 | XMS | Encounter Summary ---
Demographics + + + | Address | [address] | | | [place] [address] | + + + | Home Phone [...] Providers + +------+ + | Care Social Service Assistant Name | Role | Phone | [...] | | | [facility] [address] [place], [place] | | | | | [address] | [address] | | | | | [place], [place] | | | | | | [address] | | | | | | [phone] | | | +--------+ + + + [...] [place] | | | | | | [address] | | | | | | | | +--------+---------+ + + + documented as of this encounter Visit Diagnoses Not on filedocumented in this encounter"
--- OUTSIDE RECORDS SUMMARY | ~2019-09-24 | XMS | Encounter Summary ---
Demographics + + + | Address | [address] | | | [place] [address] | + + + | Home Phone [...] Team Providers + +------+ + | Care Teletray Operator Name | Role | Phone | [...] | | | | | region | [place], | | | | | | | [place] [address] | | | | | | | Phone: | | | | | | | [phone] | | | | | | | Fax: | | | | | | | [phone] | | +--------+ + + + + + Reason for Visit + + + | Reason | Comments | + + + | Follow-up | MRI f/u | + + + Encounter Details +--------+---------+ + + + | Date | Type | Department | Care Team | Description | +--------+---------+ + + + | 09/10/ | Office | [facility] | Darrin Hoyos | Scoliosis of lumbar | | 2013 | Visit | [address]UR[address]UR[address]ERY [address] | [address] | spine (Primary Dx); | | | | [address] | [address] | Facet arthritis of | | | | [place], [place] | [place], [place] | lumbar region | | | | [address] | [address] | | | | | [phone] | | | +--------+---------+ + + + [...] differen t from the original. PEE Vang [address] [place] [address], [address] [place], [place] [id number] FAX: NEUROSURGERY HISTORY AND PHYSICAL EXAMINATION CHIEF [...] a also s emilyn a surgeon in [facility] he stated she did not need to have surgery according to her repo rt. She also reports she had a recent MRI in the [facility] which I do not have to review. [...] has no apparent deficits with short or half-way memory. CRANIAL NERVES: II: Acuity is intact. [...] Intrinsics 5 4 Ulnar Intrinsics 5 4 Boss Dyer Strength 5 4 Hip Flexion 5 4 [...] [place] | | | | | | [address] | | | | | | | [...]
--- OUTSIDE RECORDS SUMMARY | ~2019-09-24 | XMS | Encounter Summary ---
Demographics + + + | Address | [address] | | | [place] [address] | + + + | Home Phone | | + + + | Preferred Language | Unknown | + + + | Marital Status | | + + + | Christianity Affiliation | 1013 | + + + [...] Team Providers + +------+ + | Care Mica Patcher Name | Role | Phone | + +------+ + | Wendi Aiken | PCP | | + +------+ + Encounter Details +--------+ + + + + | Date | Type | Department | Care Team | Description | +--------+ + + + + | 07/12/ | Hospital | [facility] | Sj Valdes MD | Left lumbar | | 2017 | Encounter | MED CTR XRAY [address] | [address] | radiculopathy; DISC | | | | [place] | [place] [address] | DISEASE, LUMBAR; | | | | [place] [address] | [phone] | Back pain, | | | | [phone] | | unspecified back | | | | | | location, | | | | | | unspecified back | | | | | | pain laterality, | | | | | | unspecified | | | | | | chronicity | +--------+ + + + + Social [...] Description | +--------+---------+ + + + | 12/16/ | Office | Pain Medicine | Denys Sibley, | | | 2019 | Visit | | DO [address] | | | | | | [address] [place] | | | | | | [address] | | | | | | | | +--------+---------+ + + + documented as of this encounter Procedures + +--------+ + + + | Procedure Name | Priori | Date/Time | Associated Diagnosis | Comments | | | ty | | | | + +--------+ + + + | XR SCOLIOSIS ENTIRE | Routin | 07/12/2017 | Left lumbar | Results for this | | SPINE 6+ VIEWS | e | 11:54 AM | radiculopathy DISC | procedure are in the | | | | PDT | DISEASE, LUMBAR | results section. | | | | | Back pain, | | | | | | unspecified back | | | | | | location, | | | | | | unspecified back | | | | | | pain laterality, | | | | | | unspecified | | | | | | chronicity | | + +--------+ + + + documented in this encounter Results XR Scoliosis Entire Spine 6+ Views (07/12/2017 11:54 AM PDT) + + | Specimen | + + | | + + + + + | Narrative | Performed At | + + + | CLINICAL INFORMATION: back pain. COMPARISON: Lumbar spine | [facility] | | radiographs 04/28/2015. FINDINGS: Standing PA and lateral views | | | of the entire spine including AP lateral bending views. | | | Measurements: Normal coronal balance. Normal sagittal balance. | | | Right convex thoracic curvature: 22 degrees, measured from the | | | superior endplate of T4 to the inferior endplate of T11. Left | | | convex thoracolumbar curvature: 33 degrees, measured from the | | | superior endplate of L1 to the inferior endplate of L4 . Rotatory | | | component: Mild lumbar rotatory component. There is only slight | | | correction of the thoracic spine curvature with lateral bending to | | | the T11 level. No change of the lumbar curvature during lateral | | | bending. T11 mild anterior wedge compression deformity with mild | | | prominence of the thoracic kyphosis. Normal lumbar lordosis. | | | Slight degenerative retrolisthesis of L3 over L4. Diffuse | | | degenerative disc disease throughout the thoracic and lumbar spine. | | | Moderate facet arthrosis at the lower lumbar spine. | | | Cholecystectomy clips noted. Lungs are clear. IMPRESSION - | | | Rightward thoracic curvature measuring 22 degrees with only slight | | | correction with lateral bending. Leftward lumbar curvature | | | measuring 33 degrees without correction during lateral bending. | | | Slight degenerative retrolisthesis of L3 over L4. Diffuse | | | degenerative spondylosis of the thoracic and lumbar spine. Mild | | | anterior wedge compression deformity of T11 vertebral body. | | | Dictated and Signed by: Alejandro Hankins MD Electronically signed: | | | 07/12/2017 7:39 PM | | + + + + + | Procedure Note | + + | Junior, Rad Results In - 07/12/2017 7:42 PM PDT CLINICAL INFORMATION: back pain. | | | | COMPARISON: Lumbar spine radiographs 04/28/2015. | | | | FINDINGS: | | Standing PA and lateral views of the entire spine including AP lateral bending | | views. | | | | Measurements: | | Normal coronal balance. | | Normal sagittal balance. | | | | Right convex thoracic curvature: 22 degrees, measured from the superior | | endplate of T4 to the inferior endplate of T11. | | Left convex thoracolumbar curvature: 33 degrees, measured from the superior | | endplate of L1 to the inferior endplate of L4 . | | Rotatory component: Mild lumbar rotatory component. | | | | There is only slight correction of the thoracic spine curvature with lateral | | bending to the T11 level. No change of the lumbar curvature during lateral | | bending. | | | | T11 mild anterior wedge compression deformity with mild prominence of the | | thoracic kyphosis. Normal lumbar lordosis. | | | | Slight degenerative retrolisthesis of L3 over L4. | | | | Diffuse degenerative disc disease throughout the thoracic and lumbar spine. | | Moderate facet arthrosis at the lower lumbar spine. | | | | Cholecystectomy clips noted. Lungs are clear. | | | | | | IMPRESSION - | | | | Rightward thoracic curvature measuring 22 degrees with only slight correction | | with lateral bending. | | | | Leftward lumbar curvature measuring 33 degrees without correction during lateral | | bending. | | | | Slight degenerative retrolisthesis of L3 over L4. | | | | Diffuse degenerative spondylosis of the thoracic and lumbar spine. | | | | Mild anterior wedge compression deformity of T11 vertebral body. | | | | | | Dictated and Signed by: Alejandro Hankins MD | | Electronically signed: 07/12/2017 7:39 PM | + + + +---------+ + [...] | | unspecified | + + | DISC DISEASE, LUMBAR Degeneration of lumbar or lumbosacral intervertebral disc | + + | Back pain, unspecified back location, unspecified back pain laterality, unspecified | | chronicity | + + documented in this encounter"
--- OUTSIDE RECORDS SUMMARY | ~2019-09-24 | XMS | Encounter Summary ---
Demographics + + + | Address | [address] | | | [place] [address] | + + + | Home Phone [...] Team Providers + +------+ + | Care Package Clerk Name | Role | Phone | [...] Required | Rehabilitatio | | Yaneli, | [place] | | | | n | radiculopath | PA-C [address] | [place], | | | | | y Chronic | [address] | [place] [address] | | | | | low back | [place], [place] | Phone: | | | | | pain Facet | [address] | [phone] | | | | | arthritis of | Phone: | Fax: | | | | | lumbar | [phone] | [phone] | | | | | region | Fax: | | | | | | [place] | [phone] | | | | | | stenosis [...] + + | 04/17/ | Office | [facility] | Shahnazdanowicz, | Left lumbar | | 2013 | Visit | PHYSIATRY [address] | [address] | radiculopathy | | | | [place], | [facility], | (Primary Dx); | | | | [place] [address] | [place] [address] | Chronic low back | | | | [phone] | [phone] | pain; Facet | | | | [...] of the procedure you must provide a courier delivery driver to take you home. 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 She has appropriate fund of knowledge [...] Therapy prescription has been given to the [facility]. 3. I did discussed neuropathic pain [...] [place] | | | | | | [address] | | | | | | | [...] radiculopathy ICD-9 Code 724.4 Kori Caputo | [facility] | | Joanne presents to the [...] + | [facility] | [address] | [place], [place] | [phone] | | [facility] | | [address] | | | - IMAGING | | [...]
--- OUTSIDE RECORDS SUMMARY | ~2019-09-24 | XMS | Encounter Summary ---
Demographics + + + | Address | [address] | | | [place] [address] | + + + | Home Phone [...] Providers + +------+ + | Care Business Lawyer Name | Role | Phone | + +------+ + | Wendi Aiken | PCP | | + +------+ + Encounter Details +--------+ + + + + | Date | Type | Department | Care Team | Description | +--------+ + + + + | 04/07/ | Imaging | [facility] | Provider, | | | 2018 | Exam | MED CTR EXTERNAL | [address] | | | | | IMAGING | [place] | | | | | [phone] | [place] [address] | | +--------+ + + + + [...] | | | | | | [address] | | | | | | [id number] | | | | | | | | +--------+---------+ + + + documented as of this encounter Procedures + +--------+ + + + | Procedure Name | Priori | Date/Time | Associated Diagnosis | Comments | | | ty | | | | + +--------+ + + + | CT ANGIOGRAM NECK W | Routin | 02/24/2018 | | Results for this | | CONTRAST | e | 4:20 PM | | procedure are in the | | | | PDT | | results section. | + +--------+ + + + documented in this encounter Results CT Angiogram Neck w Contrast (02/24/2018 4:20 PM PDT) + + | Specimen | [...]
--- OUTSIDE RECORDS SUMMARY | ~2019-09-24 | XMS | Encounter Summary ---
Demographics + + + | Address | [address] | | | [place] [address] | + + + | Home Phone [...] Team Providers + +------+ + | Care Internal Audit Consultant Name | Role | Phone | [...] | | | [address] [place], [place] | | | | | [address] | [address] | | | | | [place], [place] | | | | | | [address] | | | | | | [phone] | | | +--------+ + + + [...] [place] | | | | | | [address] | | | | | | | | +--------+---------+ + + + documented as of this encounter Visit Diagnoses Not on filedocumented in this encounter"
--- OUTSIDE RECORDS SUMMARY | ~2019-09-24 | XMS | Encounter Summary ---
Demographics + + + | Address | [address] | | | [place] [address] | + + + | Home Phone | | + + + | Preferred Language | Unknown | + + + | Marital Status | | + + + | Baptism Affiliation | 1013 | + + + | Race | Unknown | + + + | Ethnic Group | Unknown | + + + Author + + + | Author | [facility] | | | and Priteshana | + + + | Organization | [facility] | | | [...] Team Providers + +------+ + | Care Auditor Internal Name | Role | Phone | + +------+ + | Wendi Aiken | PCP | | + +------+ + Reason for Visit Service/Procedure (Routine) +--------+--------+ + + + + | Status | Reason | Specialty | Diagnoses / | Referred By | Referred To | | | | | Procedures | Contact | Contact | +--------+--------+ + + + + | Closed | | Radiology | Diagnoses | | [facility] | | | | | Lumbar | [place], | [address] | | | | | spondylosis | Shay Mukherjee MD | [place], | | | | | Right hip | [address] | [place] | | | | | pain | [place] | [address] | | | | | Procedures | [place], [place] | Phone: | | | | | CO INJ | [address] | [phone] | | | | | DX/THER AGNT | Phone: | Fax: | | | | | [place] | [phone] | [phone] | | | | | FACET JOINT, | Fax: | | | | | | LUMBAR/SAC, | [phone] | | | | | | 1ST LEVEL | | | | | | | CO | | | | | | | TRIAMCINOLON | | | | | | | E ACET INJ | | | | | | | NOS, 10 MG | | | | | | | CO | | | | | | | ARTHROCENTES | | | | | | | IS | | | | | | | ASPIR&/INJ | | | | | | | MAJOR | | | | | | | JT/BURSA W/O | | | | | | | US Appt | | | | | | | today-Bilat | | | | | | | L5-S1 Facet | | | | | | | & Rt | | | | | | | trochanteric | | | | | | | bursa | | | +--------+--------+ + + + + Encounter Details +--------+ + + + + | Date | Type | Department | Care Team | Description | +--------+ + + + + | 02/08/ | Hospital | [facility] | Spenser, | Trochanteric | | 2016 | Encounter | MED CTR XRAY [address] | [address] | bursitis of right | | | | [address] [place] | [facility], | hip (Primary Dx); | | | | [place] [address] | [place] [address] | Chronic bilateral | | | | [phone] | [phone] | low back pain with | | | | | | right-sided | | | | | Landscape Manager, [place]s | sciatica; Facet | | | | [...] | | | | or radiculopathy | +--------+ + + + + [...] +---------+ + + | Blood Pressure | 108/55 | 02/08/2017 1:38 PM | | | | | PDT | | + +---------+ + + | Pulse | 71 | 02/08/2017 1:38 PM | | | | | PDT [...] [place] | | | | | | [address] | | | | | | | | +--------+---------+ + + + documented as of this encounter Procedures + +--------+ + + + | Procedure Name | Priori | Date/Time | Associated Diagnosis | Comments | | | ty | | | | + +--------+ + + + | FL FACET INJECTION | Routin | 02/08/2017 | Chronic bilateral | Results for this | | LUMBAR SACRAL | e | 1:18 PM | low back pain with | procedure are in the | | | | PDT | right-sided sciatica | results section. | | | | | Facet arthritis of | | | | | | lumbar region (HCC) | | | | | | Adolescent | | | | | | idiopathic scoliosis | | | | | | of lumbar region | | | | | | Spondylosis of | | | | | | lumbar region | | | | | | without myelopathy | | | | | | or radiculopathy | | + +--------+ + + + documented in this encounter Results FL Facet Injection Lumbar Sacral (02/08/2017 1:18 PM PDT) + + | Specimen | + + | | + + + + + | Narrative | Performed At | + + + | 02/08/2017 Bilateral Lumbar Facet Steroid Injections and Right | [facility] | | Trochanteric Bursa Injection Diagnosis: Lumbar Spondylosis and | [facility] | | Trochanteric Bursitis ICD-10 Code M47.816 and ICD-10 [facility] | | Harshal Rubio presents to the [...] + + | Performing | Address | City/State/[facility] | Phone Number | | Organization | | | | + + + + + | [facility] | [address] | [place] | [phone] | | [facility] | | [address] | | | - IMAGING | | | | + + + + + documented in this encounter Visit Diagnoses + + | Diagnosis | + + | Trochanteric bursitis of right hip - Primary Enthesopathy of hip region | + + | Chronic bilateral low back pain with right-sided sciatica | + + | Facet arthritis of lumbar region Lumbosacral spondylosis without myelopathy | + + | Adolescent idiopathic scoliosis of lumbar region Scoliosis (and kyphoscoliosis), | | idiopathic | + + | Spondylosis of lumbar region without myelopathy or radiculopathy Lumbosacral | | spondylosis without myelopathy | + + documented in this encounter Administered Medications + +--------+ +-------+------+------+ | Medication Order | MAR | Action | Dose | Rate | Site | | | Action | Date | | | | + +--------+ +-------+------+------+ | iohexol (OMNIPAQUE 300) 300 | Given | 02/09/20 | 4 mLs | | | | mg/mL injection 4 mL 4 mL, | | 17 1:25 | | | | | Other, ONCE, 4/11/17 at 1330, | | PM PDT | | | | | For 1 dose | | | | | | + +--------+ +-------+------+------+ +---+---+ | | | +---+---+ + +-------+ +-------+---+---+ | lidocaine (PF) 1% injection 2 | Given | 02/09/20 | 2 mLs | | | | mL 2 mL, Other, ONCE, Tue | | 1:27 | | | | | 02/08/17 at 1330, For 1 dose | | PM PDT | | | | + +-------+ +-------+---+---+ +---+---+ | | | +---+---+ + +-------+ +--------+---+---+ | lidocaine buffered 1% injection | Given | 02/09/20 | 10 mLs | | | | 10 mL 10 mL, Other, ONCE, Tue | | 17 1:23 | | | | | 02/08/17 at 1330, For 1 dose | | PM PDT | | | | + +-------+ +--------+---+---+ +---+---+ | | | +---+---+ + +-------+ +-------+---+---+ | triamcinolone acetonide | Given | 02/09/20 | 80 mg | | | | (KENALOG-40) 40 mg/mL injection | | 17 1:27 | | | | | 80 mg 80 mg, Other, ONCE, Tue | | PM PDT | | | | | 02/08/17 at 1330, For 1 dose, | | | | | | | Shake well. Not for IV use., | | | | | | + +-------+ +-------+---+---+ +---+---+ | | | +---+---+ documented in this encounter"
--- OUTSIDE RECORDS SUMMARY | ~2019-09-24 | XMS | Encounter Summary ---
Demographics + + + | Address | [address] | | | [place] [address] | + + + | Home Phone [...] Team Providers + +------+ + | Care Correspondence Transcriber Name | Role | Phone | + [...] [place], [place] | | | | | [place], [place] | [address] | | | | | [address] | | | | | | [phone] | | | +--------+ + + + [...] | | | | | | DRIVE [place], [place] | | | | | | [address] | | | | | | | [...] 0.88 m/s MV | | | Dec [place]: 3.57 m/s2 MV DecT: 230.60 ms MV E Mark: 0.82 m/s | | | MV E/A Ratio: 0.93 MV PHT: 66.87 ms MVA By PHT: 3.28 cm2 | | | Septal e': 0.05 m/s Septal E/e': 15.05 Lateral e': 0.08 m/s | | | Lateral E/e': 9.70 RAP: 5 mmHg Vocational Technical Education Director: | | | Authenticated by: Nena Franco Report Date/Time: -- | | | [id number]:11:24 | | + + + + + [...] cmLVPWd: 0.73 cmLVOT Area: 3.03 | | [id number] Diam: 1.96 cm%FS: 33.05 %EF(Teich): 62.03 %ESV(Teich): 29.33 mlLVIDs: | | 2.79 cmSV(Teich): 47.94 mlRVIDd: 2.59 cmLAESV(A-L): 41.85 mlLAESV Index (A-L): | | 26.32 ml/m2LAAs A2C: 12.87 [id number] A-L A2C: 32.77 mlLALs A2C: 4.29 cmLAAs A4C: | | 16.44 [id number] A-L A4C: 50.32 mlLALs A4C: 4.55 cmAV maxP.92 mmHgAV meanPG: | | 4.38 mmHgAV Vmax: 1.40 m/Tisha Vmean: 0.99 m/Tisha VTI: 32.81 cmAVA Vmax: 2.11 | | cm2AVA (VTI): 2.40 yg2RLML (Vmax): 0.00 cm2/m2AVAI (VTI): 0.00 cm2/m2LVOT maxPG: | | 3.84 mmHgLVOT meanP.47 mmHgLVSI Dopp: 49.70 ml/m2LVSV Dopp: 79.02 mlLVOT | | Vmax: 0.98 m/sLVOT Vmean: 0.75 m/sLVOT VTI: 26.05 cmMV A Mark: 0.88 m/sMV Dec | | [place]: 3.57 m/s2MV DecT: 230.60 msMV E Mark: 0.82 m/sMV E/A Ratio: 0.93MV PHT: | | 66.87 msMVA By PHT: 3.28 gx6Rqdker e': 0.05 m/sSeptal E/e': 15.05Lateral e': | | 0.08 m/sLateral E/e': 9.70RAP: 5 mmHg Vocational Technical Education Director:Authenticated by: Nena | | AlschapmansbororaReport Date/Time: -- [id number]:11:24 IMPRESSION: 1. This was a technically | [...] A Mark: 0.88 m/s | |MV Dec [place]: 3.57 m/s2 | |MV DecT: 230.60 ms | |MV E Mark: 0.82 m/s | |MV E/A Ratio: 0.93 | |MV PHT: 66.87 ms | |MVA By PHT: 3.28 cm2 | |Septal e': 0.05 m/s | |Septal E/e': 15.05 | |Lateral e': 0.08 m/s | |Lateral E/e': 9.70 | |RAP: 5 mmHg | | | |Vocational Technical Education Director: | |Authenticated by: Nena Franco | |Report Date/Time: -- [id number]:11:24 | | | |IMPRESSION: | |1. This [...]
--- OUTSIDE RECORDS SUMMARY | ~2019-09-24 | XMS | Encounter Summary ---
Demographics + + + | Address | [address] | | | [place] [address] | + + + | Home Phone [...] + +------+ + | Care Director Of Alumni Relations Name | Role | Phone | + +------+ + | Romy De La Paz MD | PCP | | + +------+ + Encounter Details +--------+---------+ + + + | Date | Type | Department | Care Team | Description | +--------+---------+ + + + | 09/17/ | Office | [facility] | Denys Sibley G, | S/P insertion of | | 2018 | Visit | [facility] | DO [address] | spinal cord | | | | [address] [place], [place] | stimulator (Primary | | | | [address] [place] [address] | [address] | Dx); Spinal stenosis | | | | [place], [place] | | of lumbosacral | | | | [address] | | region; Lumbar | | | | [phone] | | region somatic | | | [...] anterior chest wall ever y 72 hours. [place] 10/325 1 p.o. every 6 hours as [...] but not limited to physical therapy, care management coordinator, acupuncture, massage therapy, and nutritional healt h [...] general activity) Total score: (Printable questionnaires in Serbian ) Interpretation of Total Score: PEG scores are used to track changes over time. It should de crease after therapy has begun. Last 4 PEG Scores: No flowsheet data found. Opioid Risk Tool (ORT): Total Score Pulse: 78 Resp: 16 BP: 102/52 SpO2: 98 % (From Chronic Pain tab; printable questionnaires in Serbian) Interpretation of Total Score: 0 to 3 [...] Acid reflux disease Acute renal failure ([facility]) April 2013 Adverse effect of anesthesia hx hallucinations after anesthesia x 3 yrs ago. Anesthesia hallucinated after bladder repair Arthralgia Arthritis Asthma Asthma Back pain Cancer ([facility]) 2004 breast Cataract Cerebrovascular accident (CVA) ([facility]) no per pt Chronic back pain Chronic back pain Chronic constipation Concussion 07/2015 Preceeded by seizure Constipation COPD (chronic obstructive pulmonary disease) ([facility]) Degenerative disc disease Depression Depression Diabetes mellitus ([facility]) Diabetes mellitus, type 2 ([facility]) diet controlled Diabetes type 2, controlled ([facility]) diet controlled Diarrhea Disorder of [...] Scoliosis of lumbar spine 04/17/2014 Seizure ([facility]) one due to meds, two [...] Arthritis Asthma Asthma Back pain Cancer ([facility]) 2004 breast Cataract Cerebrovascular accident (CVA) ([facility]) no per pt Chronic back pain Chronic back pain Chronic constipation Concussion 07/2015 Preceeded by seizure Constipation COPD (chronic obstructive pulmonary disease) ([facility]) Degenerative disc disease Depression Depression Diabetes mellitus (HCC) Diabetes mellitus, type 2 (HCC) diet controlled Diabetes type 2, controlled ([facility]) diet controlled Diarrhea Disorder of [...] Procedure: KYPHOPLASTY; Surgeon: Alfredo Casillas DO; Location: [facility] MAIN OR; Service: Pa in Management; Laterality: N/A; L5 FRACTURE SURGERY ANKLE HERNIA REPAIR HYSTERECTOMY HYSTERECTOMY LAMINECTOMY N/A 08/03/2019 Procedure: LAMINOTOMY THORACIC / LUMBAR W/ PLACEMENT SPINAL CORD STIMULATOR; Surgeon: Suly Hutchins MD; Location: [facility] MAIN OR OTHER SURGICAL HISTORY EPIDURAL STEROID [...] reviewed, listed controlled substances are consistent with [facility] prescriptions and patient reported use. [...] than left and will follow up with production specialist I believe regarding the shoulder pain [...] to physical therapy, massage therapy, acupuncture, care management coordinator, along with niki mmended psychological counseling, either privately, or in group sessions offered by private care individuals, community services, or mandaen organizations. Appropriate referrals were made at patient [...] are noted in men and women. Ma ms men will suffer erectile dysfunction with these [...] and complications with the passage of time. ferry terminal supervisor use is also associated with depressions, and liver and renal failure. Finally, these medicines are associated with both physical and emotional addiction and can be difficult to stop after taking for only a few weeks. This document has been created using [employer] Voice Recognition software and [employer]. The entry has been reviewed for content and accuracy, but there may still exist "sound alike" environmental protection geologist word errors and/or unintended additions and deletions. [...] [place] | | | | | | [address] | | | | | | | [...]
--- OUTSIDE RECORDS SUMMARY | ~2019-09-24 | XMS | Encounter Summary ---
Demographics + + + | Address | [address] | | | [place] [address] | + + + | Home Phone [...] Team Providers + +------+ + | Care Cleaning Specialist Name | Role | Phone | [...] | Lumbar | [place], | [address] | | | | | spondylosis | Shay Mukherjee MD | [place], | | | | | Right hip | [address] | [place] | | | | | pain | [place] | [address] | | | | | Procedures | [place], [place] | Phone: | | | | | MD INJ | [address] | [phone] | | | | | DX/THER AGNT | Phone: | Fax: | | | | | PARAVERT | [phone] | [phone] | | | | | FACET JOINT, | Fax: | | | | | | LUMBAR/SAC, | [phone] | | | | | | 1ST LEVEL | | | | | | | MD | | | | | | | TRIAMCINOLON | | | | | | | E ACET INJ | | | | | | | NOS, 10 MG | | | | | | | MD | | | | | | | [...] + + | 02/08/ | Hospital | [facility] | [place], | Trochanteric | | 2016 | Encounter | MED CTR XRAY [address] | [address] | bursitis of right | | | | [address] | [facility], | hip (Primary Dx); | | | | [place] [address] | [place] [address] | Chronic bilateral | | | | [phone] | [phone] | low back pain with | | | | | | right-sided | | | | | Food Storeroom Clerk, [place] | sciatica; Facet | | | [...] [place] | | | | | | [address] | | | | | | | [...] Bursa Injection Diagnosis: Lumbar Spondylosis and | [facility] | | Trochanteric Bursitis ICD-10 Code M47.816 and ICD-10 [facility] | | Harshal Rubio presents to [...] + + | Performing | Address | City/State[facility] | Phone Number | | Organization | | | | + + + + + | [address] | [address] | [place] | [phone] | | [facility] | | [address] | | | - IMAGING | | [...]
--- OUTSIDE RECORDS SUMMARY | ~2019-09-24 | XMS | Encounter Summary ---
Demographics + + + | Address | [address] | | | [place] [address] | + + + | Home Phone [...] + + + | Author | [facility] | + + + | Organization | [facility] | + + + | Address | Unknown | + + + | Phone | Unavailable | + + + Support + + +---------+ + | Name | Relationship | Address | Phone | + + +---------+ + | Royce Menchaca | ECON | Unknown | | + + +---------+ + Care Team Providers + +------+ + | Care Priming Powder Premix Blender Name | Role | Phone | + +------+ + | Miquel Calhoun MD | PCP | | + +------+ + Encounter Details +--------+ + + + + | Date | Type | Department | Care Team | Description | +--------+ + + + + | 11/05/ | [facility] | Khushbu Cortez, | | | 2013 | | [facility] | LOAN MANAGER [place], [place] | | | | | [address] | [address] | | | | | [address] | | | | | | Aravind Hannon | | | | | | [place], [place] | | | | | | [address] | | | | | | [phone] | | | +--------+ + + + [...]
--- OUTSIDE RECORDS SUMMARY | ~2019-09-24 | XMS | Encounter Summary ---
Demographics + + + | Address | [address] | | | [place] [address] | + + + | Home Phone [...] Team Providers + +------+ + | Care Outside Laborer Name | Role | Phone | + [...] | | | stenosis | B | [address] | | | | | | [place], [place] | Phone: | | | | | | [address] | [phone] | | | | | | Phone: | Fax: | | | | | | [phone] | [phone] | | | | | | Fax: | | | | | | | [phone] | | + +--------+ + + + + Encounter Details +--------+---------+ + + + | Date | Type | Department | Care Team | Description | +--------+---------+ + + + | 07/18/ | Office | [facility] | Denys Sibley, | Lumbar region | | 2018 | Visit | [facility] | DO [address] | somatic dysfunction | | | | [address] [place] | (Primary Dx); | | | | [address] | [address] | Intractable back | | | | [place] | | pain; Encounter for | | | | [address] | | long-term use of | | | | [phone] | | opiate analgesic; | | | [...] Medical History: Diagnosis Date Acute renal failure ([facility]) April 2013 Anesthesia hallucinated after bladder repair Arthralgia Asthma Asthma Cancer ([facility]) 2004 breast Cerebrovascular accident (CVA) ([facility]) no per pt Chronic back pain Chronic back pain Concussion 07/2015 Preceeded by seizure Constipation COPD (chronic obstructive pulmonary disease) ([facility]) Degenerative disc disease Depression Depression Diabetes mellitus ([facility]) Diabetes mellitus, type 2 ([facility]) diet controlled Diarrhea Disorder of thyroid [...] Scoliosis Scoliosis of lumbar spine 04/17/2014 Seizure ([facility]) one due to meds, two [...] to physical therapy, mass age therapy, acupuncture, career portals teacher, along with recommended psychological counseling , either privately, or in group sessions offered by private care individuals, community serv ices, or worship organizations. Appropriate referrals were made at patient [...] Will return to office in 4 weeks, [facility] was consulted and appears appropriate, Urine Toxicology [...] and complications with the passage of time. 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
--- OUTSIDE RECORDS SUMMARY | ~2019-09-24 | XMS | Encounter Summary ---
Demographics + + + | Address | [address] | | | [place] [address] | + + + | Home Phone [...] Team Providers + +------+ + | Care Behavioral Health Aide Name | Role | Phone | [...] [address] | | | | | [place], | [place], [place] | | | | | [place] [address] | [address] | | | | | [phone] | | | +--------+ + + + [...] [place] | | | | | | [address] | | | | | | | | +--------+---------+ + + + documented as of this encounter Visit Diagnoses Not on filedocumented in this encounter"
--- OUTSIDE RECORDS SUMMARY | ~2019-09-24 | XMS | Encounter Summary ---
Demographics + + + | Address | [address] | | | [place] [address] | + + + | Home Phone [...] Providers + +------+ + | Care Analytical Scientist Name | Role | Phone | + +------+ + | Romy De La Paz MD | PCP | | + +------+ + Encounter Details +--------+ + + + + | Date | Type | Department | Care Team | Description | +--------+ + + + + | 08/22/ | Orders Only | [facility] | Alfredo Casillas DO | | | 2017 | | [facility] XRAY [address] | [address] | | | | | [address] | [place] [address] | | | | | [place], [place] | [phone] | | | | | [address] | | | | | | [phone] | | | +--------+ + + + [...] [place] | | | | | | [address] | | | | | | | | +--------+---------+ + + + documented as of this encounter Procedures + +--------+ + + + | Procedure Name | Priori | Date/Time | Associated Diagnosis | Comments | | | ty | | | | + +--------+ + + + | XR HIP BILATERAL 2 | Routin | 06/21/2018 | | Results for this | | VIEWS | e | 8:37 AM | | procedure are in the | | | | PDT | | results section. | + +--------+ + + + documented in this encounter Results XR Hip Bilateral 2 Views (06/21/2018 8:37 AM PDT) + + | Specimen | + + | | + + + + + | Impressions | Performed At | + + + | FINDINGS/IMPRESSION: 1. No acute hip fracture or dislocation. | | | Both hip joint spaces are maintained. Osteopenia. 2. Small | | | sclerotic lesion in right femoral [...] At | + + + | KORI HALLWTKRUNAL XR HIPS BILATERAL 06/21/2018 8:37 AM | | | HISTORY: 72 years. Female. Bilateral hip pain. TECHNIQUE: XR | | | HIPS BILATERAL. 3 view(s) obtained. COMPARISON: 05/09/2018 | | + + + + + | Procedure Note | + + | Junior, Rad Conversion - 06/21/2019 4:00 PM PDT KORI Erick WAYNE-FAWTHROPXR HIPS | | BILATERAL06/21/2018 8:37 AM HISTORY:72 years. Female. Bilateral hip pain. TECHNIQUE:XR | | HIPS BILATERAL. 3 view(s) obtained. COMPARISON:05/09/2018 IMPRESSION: | | FINDINGS/IMPRESSION:1. No acute hip fracture or dislocation. Both hip joint spaces are | | maintained. Osteopenia.2. Small sclerotic lesion in right femoral neck measuring | | approximately 5 mm, nonspecific, probable bone island.3. L5 compression fracture, | | status post vertebroplasty, incompletely evaluated.4. Lumbar levoscoliosis. Lumbar | | spondylosis.5. Mild degenerative changes of both sacroiliac joints. If there is | | persistent clinical concern for acute hip or pelvic fracture, recommend CT scan or MRI | | for further evaluation. | |COMPARISON: | |05/09/2018 | | | |IMPRESSION: | [...] | | | | | + + documented in this encounter Visit Diagnoses Not on filedocumented in this encounter"
--- OUTSIDE RECORDS SUMMARY | ~2019-09-24 | XMS | Encounter Summary ---
Demographics + + + | Address | [address] | | | [place] [address] | + + + | Home Phone [...] Team Providers + +------+ + | Care Adjuster Electrical Contacts Name | Role | Phone | + [...] Provider Unknown | | | | | [place], [place] | | | | | | [address] | (Fax) | | | | | [phone] | | | +--------+ + + + [...] [place] | | | | | | [id number] | | | | | | | [...]
--- OUTSIDE RECORDS SUMMARY | ~2019-09-24 | XMS | Encounter Summary ---
Demographics + + + | Address | [address] | | | [place] [address] | + + + | Home Phone [...] Team Providers + +------+ + | Care Cognos Bi Developer Name | Role | Phone [...] | Closed | | | Diagnoses | | OP ST | | | | | Chronic | [place], | [facility] | | | | | right-sided | Yaneli, | HOSPITAL | | | | | low back | PA-C [address] | [address] | | | | | pain with | [address] | AVE | | | | | right-sided | [place], [place] | [place], [place] | | | | | sciatica | [address] | [address] | | | | | Facet | Phone: | Phone: | | | | | arthritis of | [phone] | [phone] | | | | | lumbar | Fax: | Fax: | | | | | region | [phone] | [phone] | | | | | Foraminal | | | | | | | stenosis of | | | | | | | lumbar | | | | | | | region | | | | | | | Adolescent [...] | | | | | | | MRI Lumbar | | | | | | | Spine wo | | | | | | | Contrast | | | | | | | Faxed 07/06/16 | | | +--------+--------+ + + + + Reason for Visit + + + | Reason | Comments | + + + | Back Pain | low back radiating down R>L legs | + + + Evaluate & Treat (Routine) +--------+--------+ + + + + | Status | Reason | Specialty | Diagnoses / | Referred By | Referred To | | | | | Procedures | Contact | Contact | +--------+--------+ + + + + | Closed | | Physician | Diagnoses | Popeye, | | | | | Gill Box Operator / | Low back | Oxana Solorio, | [place], | | | | Physical | pain | PROVIDER NETWORK MANAGER [address] | [address] | | | | Medicine and | Bilateral | [address] | [address] | | | | Rehabilitatio | leg pain | [place], | [place], | | | | n | Bilateral | [place] [address] | [place] [address] | | | | | hip pain | Phone: | Phone: | | | | | low back | [phone] | [phone] | | | | | pain, | Fax: | Fax: | | | | | bilateral | [phone] | [phone] | | | | | leg pain and | | | | | | | bilat hip | | | | | | | pain, last | | | | | | | OV 08/05/14. | | | | | | | Oxana | | | | | | | STARR Nye | | | | | | | referring | | | | | | | back | | | | | | | Procedures | | | | | | | OFFICE VISIT | | | | | | | REGULAR | | | +--------+--------+ + + + + Encounter Details +--------+---------+ + + + | Date | Type | Department | Care Team | Description | +--------+---------+ + + + | 07/06/ | Office | [facility] [place] | [place], | Bursitis, hip, right | | 2016 | Visit | PHYSIATRY [address] | [address] | (Primary Dx); | | | | [place], | [place], | Chronic right-sided | | | | [place] [address] | [place] [address] | low back pain with | | | | [phone] | [phone] | right-sided | | | | | | sciatica; Facet | | | | | | arthritis of lumbar | | | | | | region (HCC); | | | | | | Foraminal stenosis | | | | | | of lumbar region - | | | | | | left L5-S1; | | | | | | Adolescent | | | | | | idiopathic scoliosis | | | | | | of lumbar region; | | | | | | Osteoarthritis of | | | | | | spine without | | | | | | myelopathy or | | | | | | radiculopathy, | | | | | | lumbar region; DDD | | | | | | [...] + + + | Blood Pressure | 108/65 | 07/06/2016 9:02 AM | | | | | PDT | | + + + + + | Pulse | 76 | 07/06/2016 9:02 AM | | | | | PDT [...] Weight | 53.1 kg (117 lb) | 07/06/2016 9:02 AM | | | | | PDT | | + + + + + | Height | 154.9 cm (5' 1") | 07/06/2016 9:02 AM | | | | | PDT | | + + + + + | Body Mass Index | 22.11 | 07/06/2016 9:02 AM | | | | | PDT | | + + + + + documented in this encounter Patient Instructions Patient Instructions Yaneli Dueñas PA-C - 07/06/2016 9:31 AM PDT1) [facility] - you need to call us when the images are done 2) Facet injection with Dr. Dietz today 3) Right trochanteric bursa injection today in the office - Ice the area as needed 20 minutes per hour. Multiple times as needed over the next few d ays. - Watch for signs of infection (redness around injection site, swelling, fever) - No strenuous activity for 24-48 hours after the procedure. - Please call the office with questions or concerns. Follow-up at the hospital thirty minutes before [...] of the procedure you must provide a otr company driver to take you home. For all procedur es it is recommended that someone else drive you home. documented in this encounter Progress Notes Yaneli Dueñas PA-C - 07/06/2016 9:07 AM PDTFormatting of this note might be differe nt from the original. CHIEF COMPLAINT: Chief Complaint Patient presents with Back Pain low back radiating down R>L legs HISTORY OF PRESENT ILLNESS: The patient is a 71 y.o. female being seen today in follow-up for complaints of low back pa in with right hip pain. The patient has been seen for this complaint in the past, with ini tial visit started by Dr. Dietz. Previously it was recommended that she receive a left L5/S1 TFESI. This was performed last in 2013. She reports that she didn't respond very wel l to the last injection. She reports today having more low back pain with right leg pain. She reports her hip has b een hurting her. It woke her up at night, so severe she went to the emergency room. An xra y was done but nothing was seen, she was discharged and walked home. She reports her pain i s sharp and shooting, worse with walking and lying on that hip, the pain radiation down the right leg and into the right groin. She indicates having more low back pain that is aching and dull. 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 Her pain back is worse [...] mouth every 6 h ours as needed. ipratropium (ATROVENT) 500 mcg/2.5 mL [...] by mouth as needed. In severe moments Current Facility-Administered Medications Medication Dose Route Frequency Provider Last Rate Last Dose triamcinolone acetonide (KENALOG-40) 40 mg/mL injection 40 mg 40 mg Intra-articular On ce Yaneli Dueñas PA-C ALLERGIES: Allergies Allergen Reactions Lorazepam Morphine Zolpidem [...] No abnormal bleeding PHYSICAL EXAMINATION: Filed Vitals: 07/06/16 0902 BP: 108/65 Pulse: 76 PainSc: 3 PainLoc: Back Body mass index is 22.12 [...] has no apparent deficits with short or longwall headgate operator memory. She has appropriate fund of [...] at L5/S1 on the left. ASSESSMENT: 1. Bursitis, hip, right 2. Chronic right-sided low back pain with right-sided sciatica 3. Facet arthritis of lumbar region 4. 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 Adolescent idiopathic scoliosis of lumbar region 6. 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 Unfortunately she lola nues to have significant discomfort. It appears to me that the pain is primarily coming fro m the lumbar facet joints. I did feel that she would be a good candidate for interventional procedures and I offered bilateral L5/S1 facet steroid injections. The last facet injectio ns were performed in 2012 and appears to have given the patient 75% relief of her symptoms. 2. She appears to also be suffering from right trochanteric bursitis. We discussed a ster oid injection to this area, she would like to proceed with it. Description of procedure: After reviewing the relative risks and benefits the patient conse nted to the procedure. The patient was laid in a lateral decubitus position. The most tender area was palpated th en marked over the lateral hip. The area was then sterilized with Betadine swabs and alcoho l and cooled with an ethyl chloride spray before inserting a 1-1/2 inch 27-gauge needle into the region to administer approximately 2 mL of 1% lidocaine for local anesthesia. Then a 22 gauge spinal needle was advanced down to the greater trochanter. Once bone was encountered the needle was slightly retracted before injecting a total volume of 5 mL including 1 mL of triamcinolone ( 40 milligrams per mL) and 2 mL each of 1% lidocaine and 0.5% bupivicaine. Th e needle was then removed and the area was cleaned and bandaged. The patient tolerated the p rocedure well. There were no complications. The patient was instructed to ice the area for 15-20 minutes several times over the next few days and to watch for any signs of infection. 3. Medications have been reviewed at today's visit with no changes made at this time. 4. We discussed her low back and right leg symptoms, her last lumbar MRI was from 2013 and shows only foraminal stenosis to the left. We talked about getting a new lumbar MRI, she w ould like to do this, it has been ordered to be done at [place] [address]. We will follow up once images are back. ELECTRONICALLY SIGNED BY: Yaneli Dueñas PA-C, 07/06/2016 documented in t his encounter Plan of Treatment +--------+---------+ + + + | Date | Type | Specialty | Care Team | Description | +--------+---------+ + + + | 10/15/ | Office | Pain Medicine | Denys Sibley, | | | 2018 | Visit | | DO [address] | | | | | | [address] [place] | | | | | | [address] | | | | | | | | +--------+---------+ + + + + +---------+--------+ + + | Name | Type | Priori | Associated Diagnoses | Order Schedule | | | | ty | | | + +---------+--------+ + + | MRI Lumbar Spine wo | Imaging | Routin | Chronic | Expected: | | Contrast | | e | Right-Sided Low Back | 07/06/2016, Expires: | | | | | Pain With | 07/07/2017 | | | | | Right-Sided Sciatica | | | | | | Facet arthritis of | | | | | | lumbar region | | | | | | Foraminal stenosis | | | | | | of lumbar region - | | | | | | left L5-S1 | | | | | | Adolescent | | | | | | idiopathic scoliosis | | | | | | of lumbar region | | | | | | DDD (degenerative | | | | | | disc disease), | | | | | | lumbar | | + +---------+--------+ + + documented as of this encounter Results [place] Facet Injection Lumbar Sacral (07/06/2016 11:06 AM PDT) + + | Specimen | + + | | + + + + + | Narrative | Performed At | + + + | 07/06/2016 Bilateral Lumbar Facet Steroid Injections | [facility] | | Diagnosis: Lumbar Spondylosis ICD-10 Code M47.816 Kori Caputo | [facility] | | Joanne presents to the fluoroscopy suite for [facility] | | fluoroscopically-guided bilateral L5-S1 facet injections as part of | - IMAGING | | conservative management for chronic pain [...] | | | dealing with this pain for more than 3 months and has failed | | | conservative treatment with NSAIDs, PT and a home exercise program | | | therefore therapeutic facet injections were ordered today by [...] | infused divided between the 2 joints. The patient tolerated the | | | procedure well without complications. Pre- and post-procedure blood | | | pressures were stable. The patient was given verbal as well as | | | written follow-up instructions. The patient was reexamined after | | | the procedure. She reported good improvement of her symptoms | | | after the procedure. The patient's symptoms were improved even | | | with bending and twisting maneuvers. The patient was instructed to | | | keep a detailed pain diary of the response to treatment and will | | | return the pain diary to our office 2 weeks after the procedure. | | | Prior to the start of the procedure, the following were performed | | | and/or verified, including correct patient identity, correct | | | site/side marked and visible, agreement on the procedure to be done, | | | correct patient positioning and an accurate procedure consent form. | | | Any safety precautions based on clinical history and/or medication | | | use have been addressed. I personally performed the procedure above. | | | Estimated blood loss: Minimal Complications: None Findings: | | | As expected Anesthesia: Local 1% Lidocaine | | + + + + + + + + | Performing | Address | City/State/[facility] | Phone Number | | Organization | | | | + + + + + | [address] | [address] 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 Spinal stenosis, lumbar region, | | without neurogenic claudication | + + | Adolescent idiopathic scoliosis of lumbar region Scoliosis (and kyphoscoliosis), | | idiopathic | + + | 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 Not for IV | | | | | | | use., | | | | | | + + + +-------+------+ + +---+---+ | | | +---+---+ documented in this encounter
--- OUTSIDE RECORDS SUMMARY | ~2019-09-24 | XMS | Encounter Summary ---
Demographics + + + | Address | [address] | | | [place] [address] | + + + | Home Phone | | + + + | Preferred Language | Unknown | + + + | Marital Status | | + + + | Sabianism Affiliation | [id number] | + + + | Race | Unknown | + + + | Ethnic Group | Unknown | + + + Author + + + | Author | [facility] | | | and [place] | + + + | Organization | [facility] | | [...] Team Providers + +------+ + | Care Principal Investigator Name | Role | Phone | + +------+ + | Concepción Gallardo NP | PCP | | + +------+ + Encounter Details +--------+ + + + + | Date | Type | Department | Care Team | Description | +--------+ + + + + | 08/05/ | Hospital | 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 | [address] | [place] | [phone] | | [facility] | | [address] | | | - IMAGING | | [...]
--- OUTSIDE RECORDS SUMMARY | ~2019-09-24 | XMS | Encounter Summary ---
Demographics + + + | Address | [address] | | | [place] [address] | + + + | Home Phone | | + + + | Preferred Language | Unknown | + + + | Marital Status | Single | + + + | Presybeterian Affiliation | NON | + + + [...] Team Providers + +------+ + | Care Batch Maker Name | Role | Phone | [...] | | 2012 | | 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
--- OUTSIDE RECORDS SUMMARY | ~2019-09-24 | XMS | Encounter Summary ---
Demographics + + + | Address | [address] | | | [place] [address] | + + + | Home Phone | | + + + | Preferred Language | Unknown | + + + | Marital Status | Single | + + + | Taoism Affiliation | NON | + + + | Race | White | + + + | Ethnic Group | Not or | + + + Author + + + | Author | [facility] | + + + | Organization | [facility] | + + + | Address | Unknown | + + + | Phone | Unavailable | + + + Support + + +---------+ + | Name | Relationship | Address | Phone | + + +---------+ + | Royce [place] | ECON | Unknown | | + + +---------+ + Care Team Providers + +------+ + | Care Operations Plant Attendant Name | Role | Phone | + +------+ + | Oxana Nye | PCP | | + +------+ + Encounter Details +--------+------+ + + + | Date | Type | Department | Care Team | Description | +--------+------+ + + + | 03/09/ | Lab | Laboratory at [facility] | | Chest pain, | | 2015 | | [address] | | unspecified type | | | | [place], [place] | | | | | | [address] | | | | | | [phone] | | | +--------+------+ + + + [...] NON-HDL | 54 | <=130 mg/dL | [facility] | | | CHOLESTEROL | | [...] | + + + + + | [facility] | [address] | [place], [place] | | | | [address] | [address] | | + + + + + documented in this encounter Visit Diagnoses + + | Diagnosis | + + | Chest pain, unspecified type | + + documented in this encounter"
--- OUTSIDE RECORDS SUMMARY | ~2019-09-24 | XMS | Encounter Summary ---
Demographics + + + | Address | [address] | | | [place] [address] | + + + | Home Phone [...] Team Providers + +------+ + | Care Publicity Consultant Name | Role | Phone | + +------+ + | Romy De La Paz MD | PCP | | + +------+ + Reason for Visit + + + | Reason | Comments | + + + | Follow-up | | + + + | Back Pain | | + + + Evaluate & Treat (Routine) + +--------+ + + + + | Status | Reason | Specialty | Diagnoses / | Referred By | Referred To | | | | | Procedures | Contact | Contact | + +--------+ + + + + | Authorized | | | Diagnoses | Laraiso, | Motaghi, | | | | | Intractable | Denys Wallis DO | DO Alfredo | | | | | back pain | [address] | | | | | Closed | [address] | [address] [place], | | | | | compression | DRIVE | [place] [address] | | | | | fracture of | [place], | Phone: | | | | | fifth lumbar | [place] [address] | [phone] | | | | | vertebra | Phone: | Fax: | | | | | sequela | [phone] | [phone] | | | | | Degenerative | Fax: | | | | | | lumbar | [phone] | | | | | | spinal | | | | | | | stenosis | | | | | | | Chronic pain | | | | | | | disorder | | | | | | | Encounter | | | | | | | for | | | | | | | long-term | | | | | | | use of | | | | | | | opiate | | | | | | | analgesic | | | | | | | Low back | | | | | | | pain | | | | | | | unspecified | | | | | | | back pain | | | | | | | laterality | | | | | | | unspecified | | | + +--------+ + + + + Encounter Details +--------+---------+ + + + | Date | Type | Department | Care Team | Description | +--------+---------+ + + + | 09/18/ | Office | [facility] | Alfredo Casillas, DO | S/P insertion of | | 2019 | Visit | [facility] | [address] | spinal cord | | | | [address] | [place] [address] | stimulator (Primary | | | | [address] [place], | [phone] | Dx); Spinal stenosis | | | | [place] [address] | | of lumbosacral | | | | [phone] | | region; Lumbar | | | | | | region somatic | | | | | | dysfunction; | | | | | | Intractable back | | | | | | pain | +--------+---------+ + + + Social History [...] + + | Pulse | 79 | 09/18/2019 8:53 AM | | | | | PST | | + + + + + | Temperature | - | - | | + + + + + | Respiratory Rate | - | - | | + + + + + | Oxygen Saturation | 99% | 09/18/2019 8:53 AM | | | | | PST | | + + + + + | Inhaled Oxygen | - | - | | | Concentration | | | | + + + + + | Weight | 50.8 kg (112 lb) | 09/18/2019 8:53 AM | | | | | PST | | + + + + + | Height | - | - | | + + + + + | Body Mass Index | 21.16 | 09/17/2019 7:57 AM | | | | | PST | | + + + + + documented in this encounter Progress Notes Alfredo Casillas DO - 09/18/2019 9:10 AM PST [facility]: Interventional Pain Management 09/18/2019 Kori LeighFawthrradha 1945 Chief Complaint Patient presents with Follow-up Back Pain HISTORY OF PRESENT ILLNESS Back Pain This is a chronic problem. The current episode started more than 1 year ago. The problem oc curs constantly. The problem is unchanged. The pain is present in the lumbar spine and thora cic spine. The quality of the pain is described as aching and stabbing. The pain is at a sev erity of 5/10. The pain is moderate. The symptoms are aggravated by standing and twisting. P ertinent negatives include no abdominal pain, chest pain, fever, headaches, numbness or weak ness. She has tried home exercises for the symptoms. The treatment provided mild relief. REVIEW OF [...] heat intolerance and polyuria. Musculoskeletal: Positive for arthralgias and back pain. Negative for gait problem, joint s welling, neck pain and neck stiffness. Skin: Negative for color change and rash. Allergic/Immunologic: Negative for environmental allergies and food allergies. Neurological: Negative for seizures, weakness, light-headedness, numbness and headaches. Psychiatric/Behavioral: Negative for dysphoric mood and suicidal ideas. The patient is not nervous/anxious. Past Medical History: Diagnosis Date Acid reflux disease Acute renal failure ([facility]) April 2013 Adverse effect of anesthesia hx hallucinations after anesthesia x 3 yrs ago. Anesthesia hallucinated after bladder repair Arthralgia Arthritis Asthma Asthma Back pain Cancer ([facility]) 2004 breast Cataract Cerebrovascular accident (CVA) ([facility]) no per pt Chronic back pain Chronic back pain Chronic constipation Concussion 07/2015 Preceeded by seizure Constipation COPD (chronic obstructive pulmonary disease) ([facility]) Degenerative disc disease Depression Depression Diabetes mellitus ([facility]) Diabetes mellitus, type [address]) diet controlled Diabetes type 2, controlled ([facility]) diet controlled Diarrhea Disorder of thyroid [...] Procedure: KYPHOPLASTY; Surgeon: Alfredo Casillas DO; Location: [facility]; Service: Pa in Management; Laterality: N/A; L5 FRACTURE SURGERY ANKLE HERNIA REPAIR HYSTERECTOMY HYSTERECTOMY LAMINECTOMY N/A 08/03/2019 Procedure: LAMINOTOMY THORACIC / LUMBAR W/ PLACEMENT SPINAL CORD STIMULATOR; Surgeon: Suly Hutchins MD; Location: [facility] OTHER SURGICAL HISTORY [...] Has had twice since, with no problems. Prior to Admission medications Medication Sig Start Date End Date Taking? Authorizing Provider ALBUTEROL IN Inhale into the lungs. Yes Historical ProviderMD Ascorbic Acid (VITAMIN C) 1000 MG tablet Take 1,000 mg by mouth Daily. Yes Historical Pro viderMD Calcium Carb-Cholecalciferol (CALCIUM 1000 + D PO) Take by mouth. Yes Historical Provide MD roshni chlorhexidine (HIBICLENS) 4 % external liquid Apply to affected area the night before and t he morning of surgery. 07/19/19 Yes Maykel Hutchins MD clonazePAM (KLONOPIN) 1 mg tablet Take 1-2 mg by mouth nightly as needed for Anxiety. Yes Historical ProviderMD fentaNYL (DURAGESIC) 12 mcg/hr Place 1 patch onto the skin every 72 hours for 30 days. 08/3110/17/19 Yes Denys G Laraiso, DO HYDROcodone-acetaminophen (NORCO) 10-325 mg per tablet Take 1 tablet by mouth every 6 hours as needed for Pain for up to 30 days. 09/17/19 10/17/19 Yes Denys G Laraiso, DO levothyroxine (SYNTHROID) 100 mcg tablet Take 100 mcg by mouth every morning (before breakf ast). Yes Historical Provider, lidocaine-prilocaine (EMLA) cream Apply to affected area 2 or 3 times a day 09/17/19 Yes Denys G Belenaiso, DO Loratadine 10 MG CAPS Take 10 mg by mouth Daily as needed. Yes Historical Provider, methocarbamol (ROBAXIN) 500 mg tablet Take 500 mg by mouth 4 (four) times daily. 09/17/19 Yes Denys G Belenaiso, DO Multiple Vitamins-Minerals (MULTIVITAMIN WITH MINERALS) tablet Take 1 tablet by mouth daily . Yes Historical Provider, naloxone (NARCAN) 4 mg/nasal spray 1 spray by Nasal route as needed for Decreased Responsiv eness (May repeat with second device into other nostril after 2 minutes). 06/18/19 Yes Denys Sibley, DO nitroglycerin (NITROSTAT) 0.[address] 0.4 mg under the tongue every 5 minutes as needed for Chest pain. Yes Historical Provider, ofloxacin (OCUFLOX) 0.3% ophthalmic solution INSTILL 10 DROPS INTO AFFECTED EAR EVERY 12 HO URS FOR 7 DAYS 09/16/19 Yes Historical Provider, ondansetron (ZOFRAN) 24 MG tablet Take 24 mg by mouth once. Yes Historical Provider, raNITIdine (ZANTAC) 150 mg tablet Take 150 mg by mouth 2 (two) times daily. Yes Historica l ProviderMD rOPINIRole (REQUIP) 2 MG tablet TAKE 1 TABLET BY MOUTH TWICE DAILY AND 2 TABS ONCE DAILY AT BEDTIME 08/09/19 Yes Historical Provider, rOPINIRole (REQUIP) 4 mg tablet Take 4 mg by mouth 4 times daily. Yes Historical Provider , Family History Problem Relation Age of Onset [...] Paternal Uncle Heart failure Paternal Aunt Rachna arvizu Neg Hx Social History Socioeconomic History Marital status: Spouse name: Not on file Number of children: 3 Years of education: 14 Highest education level: Not on file Occupational History Occupation: [employer] Social Needs Financial resource strain: Not on [...] file Gets together: Not on file Attends yazdanism service: Not on file Active member of [...] Not on file PHYSICAL EXAM Vital Signs: Pulse 79 | Wt 50.8 kg (112 lb) | LMP (LMP Unknown) | SpO2 99% | BMI 21.16 kg/m Physical Exam Constitutional: Appearance: She is [...] The patient is experiencing tenderness in the cervical. DATA No results found for this or any previous visit (from the past 360 hour(s)). PROBLEM LIST 1. S/P insertion of spinal cord stimulator 2. Spinal stenosis of lumbosacral region 3. Lumbar region somatic dysfunction 4. Intractable back pain ASSESSMENT & PLAN Mrs. Mcintosh is a 74-year-old female, here following up a month and a half after her spinal cord stimulator implantation. She is doing really well from that standpoint and she has be en able to decrease her narcotic in half from her fentanyl patch, has continued to decrease it. Since she has decreased her patch, her right shoulder has significantly been getting he r discomfort. Her family doctor did refer her to an orthopedist in [place] where she randal es; so, we will leave her in his capable hands. If not, we did give her cards for shoulder orthopedist here. Otherwise, she will follow up on an as-needed basis for her spinal cord s timulator and we do look forward to continue participating in [...] participating in home exercises. Primary Care Physician: Rmoy De La Paz MD follow up Alfredo Casillas DO 09/18/2019 This document has been prepared with [employer] voice recognition system. The possibility of "s ound alike" radiation monitor errors, and additions, or deletions may occur. If there is any que stion with respect to clarity of the message being conveyed, please contact me directly for clarification. documente d in this encounter Plan of Treatment +--------+---------+ + + + | Date | Type | Specialty | Care Team | Description | +--------+---------+ + + + | 10/15/ | Office | Pain Medicine | Denys Sibley, | | | 2018 | Visit | | DO [address] | | | | | | [place] | | | | | | [address] | | | | | | | [...] back pain Backache, unspecified | + + documented in this encounter
--- OUTSIDE RECORDS SUMMARY | ~2019-09-24 | XMS | Encounter Summary ---
Demographics + + + | Address | [address] | | | [place] [address] | + + + | Home Phone | | + + + | Preferred Language | Unknown | + + + | Marital Status | Single | + + + | Yazdanism Affiliation | NON | + + + [...] Team Providers + +------+ + | Care Procedure Writer Name | Role | Phone | + [...] COURTNEY Andrews | | | | | [place], [place] | [place], [place] | | | | | [address] | [address] | | | | | [phone] | [phone] | | | | | | | [...] | + + + + + | [facility] DEPARTMENT OF | [address] | [place] [address] | | | PATHOLOGY | [address] | | | + + + + + | [facility] DEPARTMENT OF | [facility] | [place] [address] | | | PATHOLOGY | [address] [...] | + + + + + | [facility] DEPARTMENT OF | [address] | [place] [address] | | | PATHOLOGY | [address] | | | + + + + + | [facility] | [address] | [place] [address] | | | PATHOLOGY | [address] [...] | + + + + + | [facility] DEPARTMENT OF | [address] | [place] [address] | | | PATHOLOGY | [address] | | | + + + + + | [facility] DEPARTMENT OF | [address] | [place] [address] | | | PATHOLOGY | [address] [...] DEPARTMENT OF | [address] | [place] [address] | | | PATHOLOGY | [address] | | | + + + + + | [facility] DEPARTMENT OF | [address] | [place] [address] | | | PATHOLOGY | [address] [...] | + + + + + | [facility] DEPARTMENT OF | [address] | [place] [address] | | | PATHOLOGY | [address] | | | + + + + + | [facility] DEPARTMENT OF | [address] | [place] [address] | | | PATHOLOGY | [address] [...] | + + + + + | [facility] | [address] | [place] [address] | | | PATHOLOGY | [address] | | | + + + + + | [facility] | [facility] | [place] [address] | | | PATHOLOGY | [address] | | | + + + + + PHOSPHORUS, PLASMA (06/30/2006 7:00 AM PDT) + +-------+ + + + | Component | Value | Ref Range | Performed | Pathologist | | | | | At | Signature | + +-------+ + + + | PHOSPHORUS, | 3.8 | 2.4 - 4.7 mg/dL | [facility] | | | PLASMA | | [...] | + + + + + | [facility] DEPARTMENT OF | [address] | [place] [address] | | | PATHOLOGY | [address] | | | + + + + + | [facility] DEPARTMENT OF | [address] | [place] [address] | | | PATHOLOGY | [address] [...] + + | [facility] DEPARTMENT OF | [address] | [place], [place] [address] | | | PATHOLOGY | [address] | | | + + + + + | [facility] DEPARTMENT OF | [address] | [place] [address] | | | PATHOLOGY | [address] | | | + + + + + CREATININE, URINE (06/30/2006 4:45 AM PDT) + +-------+ + + + | Component | Value | Ref Range | Performed | Pathologist | | | | | At | Signature | + +-------+ + + + | CREATININE | 40.1 | mg/dL | [facility] | | | CONC UR | | [...] | + + + + + | [facility] DEPARTMENT OF | [address] | [place] [address] | | | PATHOLOGY | [address] | | | + + + + + | [facility] DEPARTMENT OF | [address] | [place] [address] | | | PATHOLOGY | [address] [...] | + + + + + | [facility] DEPARTMENT OF | [address] | [place] [address] | | | PATHOLOGY | [address] | | | + + + + + | [facility] DEPARTMENT OF | [address] | [place] [address] | | | PATHOLOGY | [address] [...] + + | [facility] DEPARTMENT OF | [address] | [place] [address] | | | PATHOLOGY | [address] | | | + + + + + | [facility] DEPARTMENT OF | [address] | [place] [address] | | | PATHOLOGY | [address] [...] | + + + + + | [facility] | [address] | [place] [address] | | | PATHOLOGY | [address] | | | + + + + + | [facility] | [address] [place] [address] | [place] [address] | | | PATHOLOGY | [address] [...] | [facility] DEPARTMENT OF | [address] | [place] [address] | | | PATHOLOGY | [address] | | | + + + + + | [facility] DEPARTMENT OF | [address] | [place] [address] | | | PATHOLOGY | [address] [...] DEPARTMENT OF | [address] | [place] [address] | | | PATHOLOGY | [address] | | | + + + + + | [facility] DEPARTMENT OF | [address] | [place] [address] | | | PATHOLOGY | [address] | | | + + + + + PHOSPHORUS, PLASMA (06/29/2006 5:45 PM PDT) + +-------+ + + + | Component | Value | Ref Range | Performed | Pathologist | | | | | At | Signature | + +-------+ + + + | PHOSPHORUS, | 3.6 | 2.4 - 4.7 mg/dL | [facility] | | | PLASMA | | [...] | + + + + + | [facility] DEPARTMENT | [address] | [place] [address] | | | PATHOLOGY | [address] | | | + + + + + | [facility] | [address] | [place] [address] | | | PATHOLOGY | [address] [...] | | | | Test performed by [facility] | | | | [...] [facility] | [address] | [place], [place] | | | UN[facility] P[facility] - INT[facility] | | [address] | | + + + + + [...] | + + + + + | [facility] | [address] | [place] [address] | | | PATHOLOGY | [address] | | | + + + + + | [facility] | [address] | [place] [address] | | | PATHOLOGY | [address] [...] DEPARTMENT OF | [address] | [place] [address] | | | PATHOLOGY | [address] | | | + + + + + | [facility] | [address] | [place] [address] | | | PATHOLOGY | [address] [...] [facility] | [address] | [place], [place] | | | UN[facility] P[facility] INT[facility] | | [address] | | + + + + + [...] | | | | | performed at [place] | | | | | | [facility] | | | | | | Laboratory. | | | | + + + + + + + + | Specimen | + + | | + + + + + + + | Performing | Address | City/State/Zipcode | Phone Number | | Organization | | | | + + + + + | [facility] | [address] | [place] [address] | | | LAB-MICRO | | | [...] DEPARTMENT OF | [address] | [place] [address] | | | PATHOLOGY | [address] | | | + + + + + | [facility] DEPARTMENT OF | [address] | [place] [address] | | | PATHOLOGY | [address] [...] | + + + + + | [facility] | [address] | [place] [address] | | | PATHOLOGY | [address] | | | + + + + + | [facility] | [address] [place] [address] | [place] [address] | | | PATHOLOGY | [address] [...] + + | [facility] DEPARTMENT OF | [address] | [place] [address] | | | PATHOLOGY | [address] | | | + + + + + | [facility] DEPARTMENT OF | [address] | [place] [address] | | | PATHOLOGY | [address] [...] | + + + + + | [facility] DEPARTMENT OF | [facility] | [place] [address] | | | PATHOLOGY | [address] | | | + + + + + | [facility] DEPARTMENT OF | [facility] | [place] [address] | | | PATHOLOGY | [address] [...] | + + + + + | [facility] DEPARTMENT OF | [address] | [place] [address] | | | PATHOLOGY | [address] | | | + + + + + | [facility] DEPARTMENT OF | [address] | [place] [address] | | | PATHOLOGY | [address] | | | + + + + + PHOSPHORUS, PLASMA (06/29/2006 6:55 AM PDT) + +---------+ + + + | Component | Value | Ref Range | Performed | Pathologist | | | | | At | Signature | + +---------+ + + + | PHOSPHORUS, | 2.2 (L) | 2.4 - 4.7 mg/dL | [facility] | | | PLASMA | | [...] | + + + + + | [facility] DEPARTMENT OF | [facility] | [place] [address] | | | PATHOLOGY | [address] | | | + + + + + | [facility] DEPARTMENT OF | [address] | [place] [address] | | | PATHOLOGY | [address] [...] | + + + + + | [facility] DEPARTMENT OF | [address] | [place] [address] | | | PATHOLOGY | [address] | | | + + + + + | [facility] DEPARTMENT OF | [address] | [place] [address] | | | PATHOLOGY | [address] [...] DEPARTMENT OF | [address] | [place] [address] | | | PATHOLOGY | [address] | | | + + + + + | [facility] DEPARTMENT OF | [address] | [place] [address] | | | PATHOLOGY | [address] [...] | + + + + + | [facility] DEPARTMENT OF | [address] | [place] [address] | | | PATHOLOGY | [address] | | | + + + + + | [facility] | [address] | [place] [address] | | | PATHOLOGY | [address] [...] DEPARTMENT OF | [address] | [place] [address] | | | PATHOLOGY | [address] | | | + + + + + | [facility] DEPARTMENT OF | [address] | [place] [address] | | | PATHOLOGY | [address] [...] | + + + + + | [facility] DEPARTMENT OF | [address] | [place] [address] | | | PATHOLOGY | [address] | | | + + + + + | [facility] DEPARTMENT OF | [address] | [place] [address] | | | PATHOLOGY | [address] | | | + + + + + MAGNESIUM, PLASMA (06/28/2006 6:20 AM PDT) + +-------+ + + + | Component | Value | Ref Range | Performed | Pathologist | | | | | At | Signature | + +-------+ + + + | MAGNESIUM,P | 2.1 | 1.8 - 2.5 mg/dL | [facility] | | | LASMA | | [...] | + + + + + | [facility] DEPARTMENT OF | [facility] | [place] [address] | | | PATHOLOGY | [address] | | | + + + + + | [facility] DEPARTMENT OF | [facility] | [place] [address] | | | PATHOLOGY | [address] [...] | + + + + + | [facility] DEPARTMENT OF | [address] | [place] [address] | | | PATHOLOGY | [address] | | | + + + + + | [facility] DEPARTMENT OF | [address] | [place] [address] | | | PATHOLOGY | [address] [...] | + + + + + | [facility] | [address] | [place] [address] | | | PATHOLOGY | [address] | | | + + + + + | [facility] | [address] | [place] [address] | | | PATHOLOGY | [address] [...] | + + + + + | [facility] DEPARTMENT OF | [address] | [place] [address] | | | PATHOLOGY | [address] | | | + + + + + | [facility] DEPARTMENT OF | [address] | [place] [address] | | | PATHOLOGY | [address] [...] | + + + + + | [facility] | [address] | [place] [address] | | | PATHOLOGY | [address] | | | + + + + + | [facility] | [facility] | [place] [address] | | | PATHOLOGY | [address] [...] | + + + + + | [facility] DEPARTMENT OF | [address] | [place] [address] | | | PATHOLOGY | [address] | | | + + + + + | [facility] DEPARTMENT OF | [address] | [place] [address] | | | PATHOLOGY | [address] [...] | + + + + + | [facility] DEPARTMENT OF | [facility] | [place] [address] | | | PATHOLOGY | [address] | | | + + + + + | [facility] DEPARTMENT OF | [address] | [place] [address] | | | PATHOLOGY | [address] [...] | + + + + + | [facility] DEPARTMENT OF | [address] | [place] [address] | | | PATHOLOGY | [address] | | | + + + + + | [facility] DEPARTMENT OF | [address] | [place] [address] | | | PATHOLOGY | [address] [...] | + + + + + | [facility] DEPARTMENT OF | [address] | [place] [address] | | | PATHOLOGY | [address] | | | + + + + + | [facility] | [address] | [place] [address] | | | PATHOLOGY | [address] [...] + + + | Test performed at [facility] | | + + + + + + + + | Performing | Address | City/State/Zipcode | Phone Number | | Organization | | | | + + + + + | [facility] | [address] | [place] [address] | | | LABORATORY | | | [...] + + + | Test performed at [facility] | | + + + + + + + + | Performing | Address | City/State/Zipcode | Phone Number | | Organization | | | | + + + + + | [facility] | [address] | [place] [address] | | | LABORATORY | | | | + + + + + IOD-ORGANIC BASE CONFIRM (06/27/2006 11:55 AM PDT) + + | Specimen | + + | | + + + + + | Narrative | Performed At | + + + | Test performed at [facility] | [facility] | | | DEPARTMENT OF | | | PATHOLOGY | + + + + + + + + | Performing | Address | City/State/Zipcode | Phone Number | | Organization | | | | + + + + + | [facility] | [address] | [place] [address] | | | PATHOLOGY | [address] | | | + + + + + | [facility] | [address] | [place] [address] | | | PATHOLOGY | [address] [...] | | | | | performed at [place] | | | | | | [facility] | | | | | | Laboratory. | | | | + + + + + + + + | Specimen | + + | | + + + + + + + | Performing | Address | City/State/Zipcode | Phone Number | | Organization | | | | + + + + + | [facility] | [address] | [place] [address] | | | LAB-MICRO | | | [...] | + + + + + | [facility] | [address] | [place] [address] | | | LABORATORY | | | [...] DEPARTMENT OF | [address] | [place] [address] | | | PATHOLOGY | [address] | | | + + + + + | [facility] DEPARTMENT OF | [address] | [place] [address] | | | PATHOLOGY | [address] [...] | + + + + + | [facility] | [address] | [place] [address] | | | PATHOLOGY | [address] | | | + + + + + | [facility] | [address] [place] [address] | [place] [address] | | | PATHOLOGY | [address] [...] | + + + + + | [facility] DEPARTMENT OF | [address] | [place] [address] | | | PATHOLOGY | [address] | | | + + + + + | [facility] DEPARTMENT OF | [address] | [place] [address] | | | PATHOLOGY | [address] [...] 1.19Comment: | 0.90 - 1.20 INR | [facility] | | | | PT INR Therapeutic [...] | + + + + + | [facility] | [address] | [place] [address] | | | PATHOLOGY | [address] | | | + + + + + | [facility] DEPARTMENT | [address] | [place] [address] | | | PATHOLOGY | [address] [...] | + + + + + | [facility] DEPARTMENT OF | [address] | [place] [address] | | | PATHOLOGY | [address] | | | + + + + + | [facility] DEPARTMENT OF | [address] | [place] [address] | | | PATHOLOGY | [address] [...] DEPARTMENT OF | [address] | [place] [address] | | | PATHOLOGY | [address] | | | + + + + + | [facility] DEPARTMENT OF | [address] | [facility] [place] [address] | | | PATHOLOGY | [address] [...] DEPARTMENT OF | [address] | [place] [address] | | | PATHOLOGY | [address] | | | + + + + + | [facility] | [address] | [place] [address] | | | PATHOLOGY | [address] [...] | | | | | performed at [place] | | | | | | [facility] | | | | | | Laboratory. | | | | + + + + + + + + | Specimen | + + | | + + + + + + + | Performing | Address | City/State/Zipcode | Phone Number | | Organization | | | | + + + + + | [facility] | [address] | [place] [address] | | | LAB-MICRO | | | [...] | | | | | performed at [place] | | | | | | [facility] | | | | | | Laboratory. | | | | + + + + + + + + | Specimen | + + | | + + + + + + + | Performing | Address | City/State/Zipcode | Phone Number | | Organization | | | | + + + + + | [facility] | [address] | [place] [address] | | | LAB-MICRO | | | [...] DEPARTMENT OF | [address] | [place] [address] | | | PATHOLOGY | [address] | | | + + + + + | [facility] | [address] | [place] [address] | | | PATHOLOGY | [address] [...] | | | | AG, SERUM | [facility] | | | | | | Laboratories. | | | | + + + + + + + + | Specimen | + + | | + + + + + + + | Performing | Address | City/State/Zipcode | Phone Number | | Organization | | | | + + + + + | [facility] | [address] | [place] [address] | | | LABORATORY | | | [...] | | | | [facility] | [facility] | | | | | | Laboratories. | | | | + + + + + + + + | Specimen | + + | | + + + + + + + | Performing | Address | City/State/Zipcode | Phone Number | | Organization | | | | + + + + + | [facility] | [address] | [place] [address] | | | LABORATORY | | | [...] | + + + + + | [facility] | [address] | [place] [address] | | | LABORATORY | | | [...] | | | | | performed at [place] | | | | | | [facility] | | | | | | Laboratory. | | | | + + + + + + + + | Specimen | + + | | + + + + + + + | Performing | Address | City/State/Zipcode | Phone Number | | Organization | | | | + + + + + | [facility] | [address] | [place] [address] | | | LAB-MICRO | | | [...] | + + + + + | [facility] | [address] | [place] [address] | | | PATHOLOGY | [address] | | | + + + + + | [facility] | [facility] | [place] [address] | | | PATHOLOGY | [address] [...] | + + + + + | [facility] DEPARTMENT OF | [address] | [place] [address] | | | PATHOLOGY | [address] | | | + + + + + | [facility] DEPARTMENT OF | [address] | [place] [address] | | | PATHOLOGY | [address] [...] | + + + + + | [facility] DEPARTMENT OF | [address] | [place] [address] | | | PATHOLOGY | [address] | | | + + + + + | [facility] DEPARTMENT OF | [address] [place] [address] | [place] [address] | | | PATHOLOGY | [address] [...] | + + + + + | [facility] DEPARTMENT OF | [address] | [place] [address] | | | PATHOLOGY | [address] | | | + + + + + | [facility] DEPARTMENT OF | [address] | [place] [address] | | | PATHOLOGY | [address] [...] | + + + + + | [facility] | [address] | [place] [address] | | | PATHOLOGY | [address] | | | + + + + + | [facility] DEPARTMENT OF | [address] | [place] [address] | | | PATHOLOGY | [address] [...] | + + + + + | [facility] DEPARTMENT OF | [address] | [place] [address] | | | PATHOLOGY | [address] | | | + + + + + | [facility] DEPARTMENT OF | [address] | [place] [address] | | | PATHOLOGY | [address] [...] | + + + + + | [facility] DEPARTMENT OF | [address] | [place] [address] | | | PATHOLOGY | [address] | | | + + + + + | [facility] DEPARTMENT OF | [address] | [place] [address] | | | PATHOLOGY | [address] [...] 247 | 150 - 400 K/cu | [facility] | | | COUNT | | mm [...] | + + + + + | [facility] DEPARTMENT OF | [facility] | [place] [address] | | | PATHOLOGY | [address] | | | + + + + + | [facility] DEPARTMENT OF | [address] | [place] [address] | | | PATHOLOGY | [address] [...] | + + + + + | [facility] | [address] | [place] [address] | | | PATHOLOGY | [address] | | | + + + + + | [facility] | [address] | [place] [address] | | | PATHOLOGY | [address] [...] | | | | | | the [facility] LabManual: | | | | | | [email or web address] | | | | | [email or web address] [...] | + + + + + | [facility] | [address] | [place] [address] | | | PATHOLOGY | [address] | | | + + + + + | [facility] | [address] | [place] [address] | | | PATHOLOGY | [address] [...] | + + + + + | [facility] | [address] | [place] [address] | | | PATHOLOGY | [address] | | | + + + + + | [facility] | [address] | [place] [address] | | | PATHOLOGY | [address] [...] | + + + + + | [facility] DEPARTMENT OF | [facility] | [place] [address] | | | PATHOLOGY | [address] | | | + + + + + | [facility] DEPARTMENT OF | [facility] | [place] [address] | | | PATHOLOGY | [address] [...] | + + + + + | [facility] DEPARTMENT OF | [address] | [place] [address] | | | PATHOLOGY | [address] | | | + + + + + | [facility] DEPARTMENT OF | [address] | [place] [address] | | | PATHOLOGY | [address] [...] | + + + + + | [facility] | [address] | [place] [address] | | | PATHOLOGY | [address] | | | + + + + + | [facility] DEPARTMENT OF | [address] | [place] [address] | | | PATHOLOGY | [address] [...] | 32.0Comment: | 26.0 - 36.0 | [facility] | | | | APTT Therapeutic [...] | + + + + + | [facility] | [address] | [place] [address] | | | PATHOLOGY | [address] | | | + + + + + | [facility] | [facility] [address] | [place] [address] | | | PATHOLOGY | [address] [...] DEPARTMENT OF | [address] | [place] [address] | | | PATHOLOGY | [address] | | | + + + + + | [facility] DEPARTMENT | [address] | [place] [address] | | | PATHOLOGY | [address] [...] | + + + + + | [facility] | [address] | [place] [address] | | | PATHOLOGY | [address] | | | + + + + + | [facility] | [facility] | [place] [address] | | | PATHOLOGY | [address] [...] DEPARTMENT OF | [address] | [place] [address] | | | PATHOLOGY | [address] | | | + + + + + | [facility] DEPARTMENT | [address] | [place], [place] [address] | | | PATHOLOGY | [address] [...] | + + + + + | [facility] DEPARTMENT OF | [address] | [place] [address] | | | PATHOLOGY | [address] | | | + + + + + | [facility] DEPARTMENT OF | [address] | [place] [address] | | | PATHOLOGY | [address] [...] | + + + + + | [facility] | [address] | [place] [address] | | | PATHOLOGY | [address] | | | + + + + + | [facility] | [address] | [place] [address] | | | PATHOLOGY | [address] [...] | + + + + + | [facility] | [address] | [place] [address] | | | PATHOLOGY | [address] | | | + + + + + | [facility] | [address] [place] [address] | [place] [address] | | | PATHOLOGY | [address] [...] | + + + + + | [facility] | [address] | [place] [address] | | | PATHOLOGY | [address] | | | + + + + + | [facility] | [address] | [place] [address] | | | PATHOLOGY | [address] | | | + + + + + documented in this encounter Visit Diagnoses Not on filedocumented in this encounter"
--- OUTSIDE RECORDS SUMMARY | ~2019-09-24 | XMS | Encounter Summary ---
Demographics + + + | Address | [address] | | | [place] [address] | + + + | Home Phone | | + + + | Preferred Language | Unknown | + + + | Marital Status | Single | + + + | Oriental Orthodox Affiliation | NON | + + + [...] Team Providers + +------+ + | Care Skoog Operator Name | Role | Phone | [...] | Abstract | Cardiology General | Airam uFchs MD | Other (Records for | | 2016 | | at [facility] [address] | [address] | new pt appt) | | | | [place] Mailcode: | [address] [facility] | | | | | [address] | [place] [address] | | | | | Health and Healing, | [phone] | | | | | [facility] [address] | | | | | | floor [place], [place] | | | | | | [address] | | | | | | [phone] | | | +--------+ + + + [...]
--- OUTSIDE RECORDS SUMMARY | ~2019-09-24 | XMS | Encounter Summary ---
Demographics + + + | Address | [address] | | | [place] [address] | + + + | Home Phone [...] Providers + +------+ + | Care Shoe Packer Name | Role | Phone | + +------+ + | Wendi Aiken | PCP | | + +------+ + Encounter Details +--------+ + + + + | Date | Type | Department | Care Team | Description | +--------+ + + + + | 05/21/ | Orders Only | [facility] | Provider, | | | 2019 | | SYSTEM GENERIC OP | MD [address] | | | | | [address] | [place] | | | | | [address] [place], [place] | [place] [address] | | | | | [address] | | | | | | [phone] | | | +--------+ + + + [...] [place] | | | | | | [id number] | | | | | | | | +--------+---------+ + + + documented as of this encounter Visit Diagnoses Not on filedocumented in this encounter"
--- OUTSIDE RECORDS SUMMARY | ~2019-09-24 | XMS | Encounter Summary ---
Demographics + + + | Address | [address] | | | [place] [address] | + + + | Home Phone | | + + + | Preferred Language | Unknown | + + + | Marital Status | Single | + + + | Zoroastrianism Affiliation | NON | + + + | Race | White | + + + | Ethnic Group | Not or | + + + Author + + + | Author | [facility] | + + + | Organization | [facility] | + + + | Address | Unknown | + + + | Phone | Unavailable | + + + Support + + +---------+ + | Name | Relationship | Address | Phone | + + +---------+ + | Royce Menchaca | ECON | Unknown | | + + +---------+ + Care Team Providers + +------+ + | Care Machine Tool Mechanic Name | Role | Phone | [...] [facility] [address] | | Change: Effective | | | | [place] Mailcode: | | October 31 | | | | [address] | | | | | | Health and Healing, | | | | | | | | | | | | floor [place], [place] | | | | | | [address] | | | | | | [phone] | | | +--------+ + + + [...]
--- OUTSIDE RECORDS SUMMARY | ~2019-09-24 | XMS | Encounter Summary ---
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 Sj Valdes M.D. [address] [place] [address], [address] [place] [address] FAX: NEUROSURGERY HISTORY AND PHYSICAL EXAMINATION CHIEF [...] has no apparent deficits with short or fci memory. MOTOR EXAM: (5 IS NORMAL) * Indicates pain limited MUSCLE/ MOVEMENT: RIGHT LEFT Deltoids 5 4+ Biceps 5 5 Triceps 5 5 Wrist Flexion 5 5 Wrist Extension 5 5 Median Intrinsics 5 4 Ulnar Intrinsics 5 4 Development Geologist Strength 5 4 Hip Flexion 5 4 [...] | | | | | | [address] [place], [place] | | | | | | [address] | | | | | | | [...]
--- OUTSIDE RECORDS SUMMARY | ~2019-09-24 | XMS | Encounter Summary ---
Demographics + + + | Address | [address] | | | [place] [address] | + + + | Home Phone | | + + + | Preferred Language | Unknown | + + + | Marital Status | | + + + | Confucianism Affiliation | 1013 | + + + | Race | Unknown | + + + | Ethnic Group | Unknown | + + + Author + + + | Author | [facility] | | | and Priteshana | + + + | Organization | [facility] | | | [...] Team Providers + +------+ + | Care Gravedigger Name | Role | Phone | + [...] | MRI Lumbar | [place], | [address] | | | | | Spine wo | [place] [address] | Phone: | | | | | Contrast | Phone: | [phone] | | | | | | [phone] | Fax: | | | | | | Fax: | [phone] | | | | | | [phone] | | +--------+--------+ + + + + Reason for Visit + + + | Reason | Comments | + + + | Follow-up | Discuss Injections | + + + Encounter Details +--------+---------+ + + + | Date | Type | Department | Care Team | Description | +--------+---------+ + + + | 04/03/ | Office | [facility] | Juan, Nick, | Lumbar radiculopathy | | 2018 | Visit | PHYSIATRY [address] | PA-C [address] | (Primary Dx); BACK | | | | [place], | [address] [place] | PAIN, LUMBAR; | | | | [place] [address] | [place] [address] | SACROILIITIS; DDD | | | | [phone] | [phone] | (degenerative disc | | | | [...] the 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 For [...] press against a nerve. Date Last Reviewed: 08/03/[id number] [employer]. [address] [place] [address], [place] [address]. All righ ts reserved. This information is [...] and working more hours due to the [employer] Round up. Her pain ba ck is [...] no apparent deficits with short or terminal manager memory. She has appropriate fund of knowledge [...] [place] | | | | | | [address] | | | | | | | [...]
--- OUTSIDE RECORDS SUMMARY | ~2019-09-24 | XMS | Encounter Summary ---
Demographics + + + | Address | [address] | | | [place] [address] | + + + | Home Phone [...] Team Providers + +------+ + | Care Interior Assemblies Installer Name | Role | Phone | [...] [address] | | | | | [place], | [address] [place], [place] | | | | | [place] [address] | [address] | | | | | [phone] | | | +--------+ + + + [...] [place] | | | | | | [address] | | | | | | | | +--------+---------+ + + + documented as of this encounter Visit Diagnoses Not on filedocumented in this encounter"
--- OUTSIDE RECORDS SUMMARY | ~2019-09-24 | XMS | Encounter Summary ---
Demographics + + + | Address | [address] | | | [place] [address] | + + + | Home Phone | | + + + | Preferred Language | Unknown | + + + | Marital Status | Single | + + + | Christianity Affiliation | NON | + + + [...] Providers + +------+ + | Care Rn Ostomy Name | Role | Phone | + [...] COURTNEY Andrews | | | | | [place], [place] | [place], [place] | | | | | [address] | [address] | | | | | [phone] | | | | | | | [...] + + + + | [facility] DEPARTMENT OF | [address] [facility] | [place] [address] | | | PATHOLOGY | [address] | | | + + + + + | [facility] DEPARTMENT OF | [facility] | [place] [address] | | | PATHOLOGY | [address] [...] + + + + | [facility] DEPARTMENT OF | [address] | [place] [address] | | | PATHOLOGY | [address] | | | + + + + + | [facility] | [address] | [place] [address] | | | PATHOLOGY | [address] [...] + + + + | [facility] DEPARTMENT OF | [address] | [place] [address] | | | PATHOLOGY | [address] | | | + + + + + | [facility] DEPARTMENT OF | [address] | [place] [address] | | | PATHOLOGY | [address] [...] DEPARTMENT OF | [address] | [place] [address] | | | PATHOLOGY | [address] | | | + + + + + | [facility] DEPARTMENT OF | [address] | [place] [address] | | | PATHOLOGY | [address] [...] + + + + | [facility] DEPARTMENT OF | [address] [facility] | [place] [address] | | | PATHOLOGY | [address] | | | + + + + + | [facility] DEPARTMENT OF | [address] [facility] | [place] [address] | | | PATHOLOGY | [address] [...] | + + + + + | [facility] | [address] [facility] | [place] [address] | | | PATHOLOGY | [address] | | | + + + + + | [facility] | [facility] | [place] [address] | | | PATHOLOGY | [address] [...] 2.4 - 4.7 mg/dL | [facility] | | | PLASMA | | | [...] + + + + | [facility] DEPARTMENT OF | [address] | [place] [address] | | | PATHOLOGY | [address] | | | + + + + + | [facility] DEPARTMENT OF | [address] | [place] [address] | | | PATHOLOGY | [address] [...] + + | [facility] DEPARTMENT OF | [address] | [place], [place] [address] | | | PATHOLOGY | [address] | | | + + + + + | [facility] DEPARTMENT OF | [address] | [place] [address] | | | PATHOLOGY | [address] | | | + + + + + CREATININE, URINE (06/30/2006 4:45 AM PDT) + +-------+ + + + | Component | Value | Ref Range | Performed | Pathologist | | | | | At | Signature | + +-------+ + + + | CREATININE | 40.1 | mg/dL | [facility] | | | CONC UR | | [...] + + + + | [facility] DEPARTMENT OF | [address] | [place] [address] | | | PATHOLOGY | [address] | | | + + + + + | [facility] DEPARTMENT OF | [address] | [place] [address] | | | PATHOLOGY | [address] [...] + + + + | [facility] DEPARTMENT OF | [address] | [place] [address] | | | PATHOLOGY | [address] | | | + + + + + | [facility] DEPARTMENT OF | [address] [facility] | [place] [address] | | | PATHOLOGY | [address] [...] + + | [facility] DEPARTMENT OF | [address] | [place] [address] | | | PATHOLOGY | [address] | | | + + + + + | [facility] DEPARTMENT OF | [address] | [place] [address] | | | PATHOLOGY | [address] [...] | + + + + + | [facility] | [address] [facility] | [place] [address] | | | PATHOLOGY | [address] | | | + + + + + | [facility] | [address] [place] [address] | [place] [address] | | | PATHOLOGY | [address] [...] + | [facility] DEPARTMENT OF | [address] [facility] | [place] [address] | | | PATHOLOGY | [address] | | | + + + + + | [facility] DEPARTMENT OF | [address] [facility] | [place] [address] | | | PATHOLOGY | [address] [...] DEPARTMENT OF | [address] | [place] [address] | | | PATHOLOGY | [address] | | | + + + + + | [facility] DEPARTMENT OF | [address] | [place] [address] | | | PATHOLOGY | [address] | | | + + + + + PHOSPHORUS, PLASMA (06/29/2006 5:45 PM PDT) + +-------+ + + + | Component | Value | Ref Range | Performed | Pathologist | | | | | At | Signature | + +-------+ + + + | PHOSPHORUS, | 3.6 | 2.4 - 4.7 mg/dL | [facility] | | | PLASMA | | | [...] + + + + | [facility] DEPARTMENT | [address] | [place] [address] | | | PATHOLOGY | [address] | | | + + + + + | [facility] | [address] | [place] [address] | | | PATHOLOGY | [address] [...] | | | | Test performed by [facility] | | | | | | Laboratories. | | | | + + + + + + + + | Specimen | + + | | + + + + + + + | Performing | Address | City/State/Zipcode | Phone Number | | Organization | | | | + + + + + | [facility] | [address] | [place], [place] | | | [facility] | | [phone] | | + + + + + [...] | + + + + + | [facility] | [address] [facility] | [place] [address] | | | PATHOLOGY | [address] | | | + + + + + | [facility] | [address] [facility] | [place] [address] | | | PATHOLOGY | [address] [...] DEPARTMENT OF | [address] | [place] [address] | | | PATHOLOGY | [address] | | | + + + + + | [facility] | [address] | [place] [address] | | | PATHOLOGY | [address] [...] [facility] | [address] | [place], [place] | | | [facility] | | [address] | | + + + + + [...] | | | | | performed at [place] | | | | | | [facility] | | | | | | Laboratory. | | | | + + + + + + + + | Specimen | + + | | + + + + + + + | Performing | Address | City/State/Zipcode | Phone Number | | Organization | | | | + + + + + | [facility] | [address] | [place] [address] | | | LAB-MICRO | | | [...] DEPARTMENT OF | [address] | [place] [address] | | | PATHOLOGY | [address] | | | + + + + + | [facility] DEPARTMENT OF | [address] | [place] [address] | | | PATHOLOGY | [address] [...] | + + + + + | [facility] | [address] | [place] [address] | | | PATHOLOGY | [address] | | | + + + + + | [facility] | [address] [place] [address] | [place] [address] | | | PATHOLOGY | [address] [...] + + | [facility] DEPARTMENT OF | [address] | [place] [address] | | | PATHOLOGY | [address] | | | + + + + + | [facility] DEPARTMENT OF | [address] | [place] [address] | | | PATHOLOGY | [address] [...] + + + + | [facility] DEPARTMENT OF | [facility] | [place] [address] | | | PATHOLOGY | [address] | | | + + + + + | [facility] DEPARTMENT OF | [facility] | [place] [address] | | | PATHOLOGY | [address] [...] + + + + | [facility] DEPARTMENT OF | [address] | [place] [address] | | | PATHOLOGY | [address] | | | + + + + + | [facility] DEPARTMENT OF | [address] | [place] [address] | | | PATHOLOGY | [address] [...] 2.4 - 4.7 mg/dL | [facility] | | | PLASMA | | | [...] + + + + | [facility] DEPARTMENT OF | [facility] | [place] [address] | | | PATHOLOGY | [address] | | | + + + + + | [facility] DEPARTMENT OF | [address] | [place] [address] | | | PATHOLOGY | [address] [...] + + + + | [facility] DEPARTMENT OF | [address] [facility] | [place] [address] | | | PATHOLOGY | [address] | | | + + + + + | [facility] DEPARTMENT OF | [address] [facility] | [place] [address] | | | PATHOLOGY | [address] [...] DEPARTMENT OF | [address] | [place] [address] | | | PATHOLOGY | [address] | | | + + + + + | [facility] DEPARTMENT OF | [address] | [place] [address] | | | PATHOLOGY | [address] [...] + + + + | [facility] DEPARTMENT OF | [address] [facility] | [place] [address] | | | PATHOLOGY | [address] | | | + + + + + | [facility] | [address] [facility] | [place] [address] | | | PATHOLOGY | [address] [...] DEPARTMENT OF | [address] | [place] [address] | | | PATHOLOGY | [address] | | | + + + + + | [facility] DEPARTMENT OF | [address] | [place] [address] | | | PATHOLOGY | [address] [...] + + + + | [facility] DEPARTMENT OF | [address] | [place] [address] | | | PATHOLOGY | [address] | | | + + + + + | [facility] DEPARTMENT OF | [address] | [place] [address] | | | PATHOLOGY | [address] [...] 1.8 - 2.5 mg/dL | [facility] | | | LASMA | | | [...] + + + + | [facility] DEPARTMENT OF | [facility] | [place] [address] | | | PATHOLOGY | [address] | | | + + + + + | [facility] DEPARTMENT OF | [facility] | [place] [address] | | | PATHOLOGY | [address] [...] + + + + | [facility] DEPARTMENT OF | [address] [facility] | [place] [address] | | | PATHOLOGY | [address] | | | + + + + + | [facility] DEPARTMENT OF | [address] [facility] | [place] [address] | | | PATHOLOGY | [address] [...] | + + + + + | [facility] | [address] [facility] | [place] [address] | | | PATHOLOGY | [address] | | | + + + + + | [facility] | [address] [facility] | [place] [address] | | | PATHOLOGY | [address] [...] + + + + | [facility] DEPARTMENT OF | [address] | [place] [address] | | | PATHOLOGY | [address] | | | + + + + + | [facility] DEPARTMENT OF | [address] | [place] [address] | | | PATHOLOGY | [address] [...] | + + + + + | [facility] | [address] [facility] | [place] [address] | | | PATHOLOGY | [address] | | | + + + + + | [facility] | [facility] | [place] [address] | | | PATHOLOGY | [address] [...] + + + + | [facility] DEPARTMENT OF | [address] | [place] [address] | | | PATHOLOGY | [address] | | | + + + + + | [facility] DEPARTMENT OF | [address] | [place] [address] | | | PATHOLOGY | [address] [...] + + + + | [facility] DEPARTMENT OF | [facility] | [place] [address] | | | PATHOLOGY | [address] | | | + + + + + | [facility] DEPARTMENT OF | [address] | [place] [address] | | | PATHOLOGY | [address] [...] + + + + | [facility] DEPARTMENT OF | [address] | [place] [address] | | | PATHOLOGY | [address] | | | + + + + + | [facility] DEPARTMENT OF | [address] | [place] [address] | | | PATHOLOGY | [address] [...] + + + + | [facility] DEPARTMENT OF | [address] | [place] [address] | | | PATHOLOGY | [address] | | | + + + + + | [facility] | [address] | [place] [address] | | | PATHOLOGY | [address] [...] + + + | Test performed at [facility] | | + + + + + + + + | Performing | Address | City/State/Zipcode | Phone Number | | Organization | | | | + + + + + | [facility] | [address] | [place] [address] | | | LABORATORY | | | [...] + + + | Test performed at [facility] | | + + + + + + + + | Performing | Address | City/State/Zipcode | Phone Number | | Organization | | | | + + + + + | [facility] | [address] | [place] [address] | | | LABORATORY | | | | + + + + + IOD-ORGANIC BASE CONFIRM (06/27/2006 11:55 AM PDT) + + | Specimen | + + | | + + + + + | Narrative | Performed At | + + + | Test performed at [facility] | [facility] | | | DEPARTMENT OF | | | PATHOLOGY | + + + + + + + + | Performing | Address | City/State/Zipcode | Phone Number | | Organization | | | | + + + + + | [facility] | [address] [facility] | [place] [address] | | | PATHOLOGY | [address] | | | + + + + + | [facility] | [address] [facility] | [place] [address] | | | PATHOLOGY | [address] [...] | | | | | performed at [place] | | | | | | [facility] | | | | | | Laboratory. | | | | + + + + + + + + | Specimen | + + | | + + + + + + + | Performing | Address | City/State/Zipcode | Phone Number | | Organization | | | | + + + + + | [facility] | [address] | [place] [address] | | | LAB-MICRO | | | [...] | + + + + + | [facility] | [address] | [place] [address] | | | LABORATORY | | | [...] DEPARTMENT OF | [address] | [place] [address] | | | PATHOLOGY | [address] | | | + + + + + | [facility] DEPARTMENT OF | [address] | [place] [address] | | | PATHOLOGY | [address] [...] | + + + + + | [facility] | [address] [facility] | [place] [address] | | | PATHOLOGY | [address] | | | + + + + + | [facility] | [address] [place] [address] | [place] [address] | | | PATHOLOGY | [address] [...] + + + + | [facility] DEPARTMENT OF | [address] | [place] [address] | | | PATHOLOGY | [address] | | | + + + + + | [facility] DEPARTMENT OF | [address] | [place] [address] | | | PATHOLOGY | [address] [...] 1.19Comment: | 0.90 - 1.20 INR | [facility] | | | | PT INR Therapeutic [...] | + + + + + | [facility] | [address] | [place] [address] | | | PATHOLOGY | [address] | | | + + + + + | [facility] DEPARTMENT | [address] | [place] [address] | | | PATHOLOGY | [address] [...] + + + + | [facility] DEPARTMENT OF | [address] [facility] | [place] [address] | | | PATHOLOGY | [address] | | | + + + + + | [facility] DEPARTMENT OF | [address] | [place] [address] | | | PATHOLOGY | [address] [...] DEPARTMENT OF | [address] | [place] [address] | | | PATHOLOGY | [address] | | | + + + + + | [facility] DEPARTMENT OF | [address] | [facility] [place] [address] | | | PATHOLOGY | [address] [...] DEPARTMENT OF | [address] | [place] [address] | | | PATHOLOGY | [address] | | | + + + + + | [facility] | [address] | [place] [address] | | | PATHOLOGY | [address] [...] | | | | | performed at [place] | | | | | | [facility] | | | | | | Laboratory. | | | | + + + + + + + + | Specimen | + + | | + + + + + + + | Performing | Address | City/State/Zipcode | Phone Number | | Organization | | | | + + + + + | [facility] | [address] | [place] [address] | | | LAB-MICRO | | | [...] | | | | | performed at [place] | | | | | | [facility] | | | | | | Laboratory. | | | | + + + + + + + + | Specimen | + + | | + + + + + + + | Performing | Address | City/State/Zipcode | Phone Number | | Organization | | | | + + + + + | [facility] | [address] | [place] [address] | | | LAB-MICRO | | | [...] DEPARTMENT OF | [address] | [place] [address] | | | PATHOLOGY | [address] | | | + + + + + | [facility] | [address] | [place] [address] | | | PATHOLOGY | [address] [...] | | | | AG, SER[facility] | [facility] | | | | | | Laboratories. | | | | + + + + + + + + | Specimen | + + | | + + + + + + + | Performing | Address | City/State/Zipcode | Phone Number | | Organization | | | | + + + + + | [facility] | [address] | [place] [address] | | | LABORATORY | | | [...] | | | | [facility] | [facility] | | | | | | Laboratories. | | | | + + + + + + + + | Specimen | + + | | + + + + + + + | Performing | Address | City/State/Zipcode | Phone Number | | Organization | | | | + + + + + | [facility] | [address] | [place] [address] | | | LABORATORY | | | [...] | + + + + + | [facility] | [address] | [place] [address] | | | LABORATORY | | | [...] | | | | | performed at [place] | | | | | | [facility] | | | | | | Laboratory. | | | | + + + + + + + + | Specimen | + + | | + + + + + + + | Performing | Address | City/State/Zipcode | Phone Number | | Organization | | | | + + + + + | [facility] | [address] | [place] [address] | | | LAB-MICRO | | | [...] | + + + + + | [facility] | [address] [facility] | [place] [address] | | | PATHOLOGY | [address] | | | + + + + + | [facility] | [facility] | [place] [address] | | | PATHOLOGY | [address] [...] + + + + | [facility] DEPARTMENT OF | [address] | [place] [address] | | | PATHOLOGY | [address] | | | + + + + + | [facility] DEPARTMENT OF | [address] | [place] [address] | | | PATHOLOGY | [address] [...] + + + + | [facility] DEPARTMENT OF | [address] [facility] | [place] [address] | | | PATHOLOGY | [address] | | | + + + + + | [facility] DEPARTMENT OF | [address] [place] [address] | [place] [address] | | | PATHOLOGY | [address] [...] + + + + | [facility] DEPARTMENT OF | [address] | [place] [address] | | | PATHOLOGY | [address] | | | + + + + + | [facility] DEPARTMENT OF | [address] | [place] [address] | | | PATHOLOGY | [address] [...] | + + + + + | [facility] | [address] | [place] [address] | | | PATHOLOGY | [address] | | | + + + + + | [facility] DEPARTMENT OF | [address] | [place] [address] | | | PATHOLOGY | [address] [...] + + + + | [facility] DEPARTMENT OF | [address] | [place] [address] | | | PATHOLOGY | [address] | | | + + + + + | [facility] DEPARTMENT OF | [address] | [place] [address] | | | PATHOLOGY | [address] [...] + + + + | [facility] DEPARTMENT OF | [address] [facility] | [place] [address] | | | PATHOLOGY | [address] | | | + + + + + | [facility] DEPARTMENT OF | [address] [facility] | [place] [address] | | | PATHOLOGY | [address] [...] 247 | 150 - 400 K/cu | [facility] | | | COUNT | | mm [...] + + + + | [facility] DEPARTMENT OF | [facility] | [place] [address] | | | PATHOLOGY | [address] | | | + + + + + | [facility] DEPARTMENT OF | [address] | [place] [address] | | | PATHOLOGY | [address] [...] | + + + + + | [facility] | [address] [facility] | [place] [address] | | | PATHOLOGY | [address] | | | + + + + + | [facility] | [address] [facility] | [place] [address] | | | PATHOLOGY | [address] [...] | | | | the [facility] LabManual: | | | | | | [email or web address] | | | | | [...] | + + + + + | [facility] | [address] [facility] | [place] [address] | | | PATHOLOGY | [address] | | | + + + + + | [facility] | [address] [facility] | [place] [address] | | | PATHOLOGY | [address] | | | + + + [...] | + + + + + | [facility] | [address] [facility] | [place] [address] | | | PATHOLOGY | [address] | | | + + + + + | [facility] | [address] [facility] | [place] [address] | | | PATHOLOGY | [address] [...] + + + + | [facility] DEPARTMENT OF | [facility] | [place] [address] | | | PATHOLOGY | [address] | | | + + + + + | [facility] DEPARTMENT OF | [facility] | [place] [address] | | | PATHOLOGY | [address] [...] + + + + | [facility] DEPARTMENT OF | [address] | [place] [address] | | | PATHOLOGY | [address] | | | + + + + + | [facility] DEPARTMENT OF | [address] | [place] [address] | | | PATHOLOGY | [address] [...] | + + + + + | [facility] | [address] | [place] [address] | | | PATHOLOGY | [address] | | | + + + + + | [facility] DEPARTMENT OF | [address] | [place] [address] | | | PATHOLOGY | [address] [...] | 26.0 - 36.0 | [facility] | | | | [facility] [...] | + + + + + | [facility] | [address] [facility] | [place] [address] | | | PATHOLOGY | [address] | | | + + + + + | [facility] | [facility] [facility] | [place] [address] | | | PATHOLOGY | [address] [...] DEPARTMENT OF | [address] | [place] [address] | | | PATHOLOGY | [address] | | | + + + + + | [facility] DEPARTMENT | [address] | [place] [address] | | | PATHOLOGY | [address] [...] | + + + + + | [facility] | [address] | [place] [address] | | | PATHOLOGY | [address] | | | + + + + + | [facility] | [facility] | [place] [address] | | | PATHOLOGY | [address] [...] DEPARTMENT OF | [address] | [place] [address] | | | PATHOLOGY | [address] | | | + + + + + | [facility] DEPARTMENT | [address] | [place], [place] [address] | | | PATHOLOGY | [address] [...] | + + + + + | [facility] DEPARTMENT OF | [address] | [place] [address] | | | PATHOLOGY | [address] | | | + + + + + | [facility] DEPARTMENT OF | [address] | [place] [address] | | | PATHOLOGY | [address] [...] | + + + + + | [facility] | [address] | [place] [address] | | | PATHOLOGY | [address] | | | + + + + + | [facility] | [address] | [place] [address] | | | PATHOLOGY | [address] [...] | + + + + + | [facility] | [address] [facility] | [place] [address] | | | PATHOLOGY | [address] | | | + + + + + | [facility] | [address] [place] [address] | [place] [address] | | | PATHOLOGY | [address] [...] | + + + + + | [facility] | [address] [facility] | [place] [address] | | | PATHOLOGY | [address] | | | + + + + + | [facility] | [address] [facility] | [place] [address] | | | PATHOLOGY | [address] | | | + + + + + documented in this encounter Visit Diagnoses Not on filedocumented in this encounter"
--- OUTSIDE RECORDS SUMMARY | ~2019-09-24 | XMS | Encounter Summary ---
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
--- OUTSIDE RECORDS SUMMARY | ~2019-09-24 | XMS | Encounter Summary ---
Demographics + + + | Address | [address] | | | [place] [address] | + + + | Home Phone [...] + + + | Author | [facility] | + + + | Organization | [facility] | + + + | Address | Unknown | + + + | Phone | Unavailable | + + + Support + + +---------+ + | Name | Relationship | Address | Phone | + + +---------+ + | Royce Menchaca | ECON | Unknown | | + + +---------+ + Care Team Providers + +------+ + | Care Tele Rn Name | Role | Phone | + +------+ + | Miquel Calhoun MD | PCP | | + +------+ + Encounter Details +--------+ + + + + | Date | Type | Department | Care Team | Description | +--------+ + + + + | 11/12/ | [facility] | [facility] | Khushbu Cortez, | | | 2013 | | [facility] | 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
--- OUTSIDE RECORDS SUMMARY | ~2019-09-24 | XMS | Encounter Summary ---
Demographics + + + | Address | [address] | | | [place] [address] | + + + | Home Phone [...] Providers + +------+ + | Care Senior Health Physics Technician Name | Role | Phone | + +------+ + PCP | Unavailable | + +------+ + Encounter Details +--------+ + + + + | Date | Type | Department | Care Team | Description | +--------+ + + + + | 08/31/ | Hospital | [facility] | | | | 2010 | Encounter | MED CTR LABORATORY | | | | | | [address] | | | | | | [place] | | | | | | [address] | | | | | | [phone] | | | +--------+ + + + [...] [place] | | | | | | [address] | | | | | | | [...] + | [facility] | [address] | [place] | [phone] | | [facility] | | [address] | | | - LABORATORY | | | | + + + + + | [facility] | [address] | [place] | | | [facility] | | [address] | | | - LABORATORY | | | | + + + + + documented in this encounter Visit Diagnoses Not on filedocumented in this encounter"
--- OUTSIDE RECORDS SUMMARY | ~2019-09-24 | XMS | Encounter Summary ---
Demographics + + + | Address | [address] | | | [place] [address] | + + + | Home Phone [...] Team Providers + +------+ + | Care Returned Goods Repairer Name | Role | Phone | [...] + + | 11/01/ | Office | [facility] | Shay Dietz | Back pain (Primary | | 2012 | Visit | PH[address]SIATRY [address] | Dx); BACK PAIN, | | | | [place], | [place], [place] | LUMBAR; | | | | [place] [address] | [address] | OSTEOARTHRITIS, | | | | [phone] | | LUMBOSACRAL SPINE; | | | [...] - 11/01/2012 9:06 AM [facility] your [facility] to [...] our off ice. Please also provide a truck driver instructor to take you home on the [...] [place] | | | | | | [address] | | | | | | | [...]
--- OUTSIDE RECORDS SUMMARY | ~2019-09-24 | XMS | Encounter Summary ---
Demographics + + + | Address | [address] | | | [place] [address] | + + + | Home Phone [...] Team Providers + +------+ + | Care Poacher Wringer Operator Name | Role | Phone | + +------+ + | Romy De La Paz MD | PCP | | + +------+ + Encounter Details +--------+---------+ + + + | Date | Type | Department | Care Team | Description | +--------+---------+ + + + | 09/17/ | Office | [facility] | Denys Sibley G, | S/P insertion of | | 2018 | Visit | [facility] | DO [address] | spinal cord | | | | [address] | [address] [place], [place] | stimulator (Primary | | | | [address] | [address] | Dx); Spinal stenosis | | | | [place], [place] | | of lumbosacral | | | | [address] | | region; Lumbar | | | | [phone] | | region somatic | | | [...] anterior chest wall ever y 72 hours. [place] 10/325 1 p.o. every 6 hours as [...] including but not limited to physical therapy, childcare aide, acupuncture, massage therapy, and nutritional healt h [...] Date Acid reflux disease Acute renal failure ([facility]) April 2013 Adverse effect of anesthesia hx hallucinations after anesthesia x 3 yrs ago. Anesthesia hallucinated after bladder repair Arthralgia Arthritis Asthma Asthma Back pain Cancer ([facility]) 2004 breast Cataract Cerebrovascular accident (CVA) ([facility]) no per pt Chronic back pain Chronic back pain Chronic constipation Concussion 07/2015 Preceeded by seizure Constipation COPD (chronic obstructive pulmonary disease) ([facility]) Degenerative disc disease Depression Depression Diabetes mellitus ([facility]) Diabetes mellitus, type 2 ([facility]) diet controlled Diabetes type 2, controlled ([facility]) diet controlled [...] Arthralgia Arthritis Asthma Asthma Back pain Cancer ([facility]) 2004 breast Cataract Cerebrovascular accident (CVA) ([facility]) no per pt Chronic back pain Chronic back pain Chronic constipation Concussion 07/2015 Preceeded by seizure Constipation COPD (chronic obstructive pulmonary disease) ([facility]) Degenerative disc disease Depression Depression Diabetes mellitus (HCC) Diabetes mellitus, type 2 (HCC) diet controlled Diabetes type 2, controlled ([facility]) diet controlled [...] Procedure: KYPHOPLASTY; Surgeon: Alfredo Casillas DO; Location: [facility] MAIN OR; Service: Pa in Management; Laterality: N/A; L5 FRACTURE SURGERY ANKLE HERNIA REPAIR HYSTERECTOMY HYSTERECTOMY LAMINECTOMY N/A 08/03/2019 Procedure: LAMINOTOMY THORACIC / LUMBAR W/ PLACEMENT SPINAL CORD STIMULATOR; Surgeon: Suly Hutchins MD; Location: [facility] MAIN OR OTHER SURGICAL HISTORY EPIDURAL STEROID [...] reviewed, listed controlled substances are consistent with [facility] prescriptions and patient reported use. Controlled [...] than left and will follow up with nuclear medicine specialist I believe regarding the shoulder pain [...] imited to physical therapy, massage therapy, acupuncture, childcare aide, along with niki mmended psychological counseling, either privately, or in group sessions offered by private care individuals, community services, or denominational organizations. Appropriate referrals were made at patient [...] are noted in men and women. Ma wi men will suffer erectile dysfunction with these [...] and complications with the passage of time. buttermaker continuous churn use is also associated with depressions, and liver and renal failure. Finally, these medicines are associated with both physical and emotional addiction and can be difficult to stop after taking for only a few weeks. This document has been created using [employer] Voice Recognition software and [employer]. The entry has been reviewed for content and accuracy, but there may still exist "sound alike" coordinate measuring equipment operator word errors and/or unintended additions and deletions. [...] [place] | | | | | | [address] | | | | | | | [...]
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
--- OUTSIDE RECORDS SUMMARY | ~2019-09-24 | XMS | Encounter Summary ---
Demographics + + + | Address | [address] | | | [place] [address] | + + + | Home Phone [...] + +------+ + | Care Vice President Of Recruiting Name | Role | Phone | + [...] Provider Unknown | | | | | [place], [place] | | | | | | [address] | (Fax) | | | | | [phone] | | | +--------+ + + + [...] [place] | | | | | | [id number] | | | | | | | [...]
--- OUTSIDE RECORDS SUMMARY | ~2019-09-24 | XMS | Encounter Summary ---
Demographics + + + | Address | [address] | | | [place] [address] | + + + | Home Phone | | + + + | Preferred Language | Unknown | + + + | Marital Status | | + + + | Synagogue Affiliation | 1013 | + + + | Race | Unknown | + + + | Ethnic Group | Unknown | + + + Author + + + | Author | [facility] | | | and Priteshana | + + + | Organization | [facility] | [...] Team Providers + +------+ + | Care Enterprise Architect Name | Role | Phone | [...] 2013 | | PHYSIATRY [address] | CUSTOMER DEVELOPMENT REPRESENTATIVE | | | | | [place], | | | | | | [place] [address] | | | | | | [phone] | | | +--------+ + + + [...] [place] | | | | | | [address] | | | | | | | | +--------+---------+ + + + documented as of this encounter Visit Diagnoses Not on filedocumented in this encounter"
--- OUTSIDE RECORDS SUMMARY | ~2019-09-24 | XMS | Encounter Summary ---
Demographics + + + | Address | [address] | | | [place] [address] | + + + | Home Phone | | + + + | Preferred Language | Unknown | + + + | Marital Status | | + + + | Muslim Affiliation | 1013 | + + + | Race | Unknown | + + + | Ethnic Group | Unknown | + + + Author + + + | Author | [facility] | | | and Priteshana | + + + | Organization | [facility] | | | and [...] Providers + +------+ + | Care Director Government Name | Role | Phone | + [...] | SR | | | | | [phone] | | | +--------+ + + + [...] [place] | | | | | | [address] | | | | | | | | +--------+---------+ + + + documented as of this encounter Visit Diagnoses Not on filedocumented in this encounter
--- OUTSIDE RECORDS SUMMARY | ~2019-09-24 | XMS | Encounter Summary ---
Demographics + + + | Address | [address] | | | [place] [address] | + + + | Home Phone [...] Team Providers + +------+ + | Care Process Inspector Name | Role | Phone | [...] [facility] | | | | | Thoracic or | [place], | [address] | | | | | lumbosacral | Shay Mukherjee MD | [place], | | | | | neuritis or | [address] | [place] | | | | | | [place] | [address] | | | | | radiculitis, | [place], [place] | Phone: | | | | | unspecified | [address] | [phone] | | | | | Procedures | Phone: | Fax: | | | | | MD INJECT | [phone] | [phone] | | | | | ANES/STEROID | Fax: | | | | | | FORAMEN | [phone] | | | | | | LUMBAR/SACRA | | | | | | | L W IMG | | | | | | | GUIDE ,1 | | | | | | | LEVEL MD | | | | | | | TRIAMCINOLON | | | | | | | E ACET INJ | | | | | | | NOS, 10 MG | | | | | | | Left L5-S1 | | | | | | | TFESI | | | +--------+--------+ + + + + Encounter Details +--------+ + + + + | Date | Type | Department | Care Team | Description | +--------+ + + + + | 04/18/ | Hospital | [facility] | [place], | Left lumbar | | 2013 | Encounter | MED CTR XRAY [address] | [address] | radiculopathy; | | | | [place] | MICHAEL FITCH, | Chronic low back | | | | [place] [address] | [place] [address] | pain; Facet | | | | [phone] | [phone] | arthritis of lumbar | | | | | | region; Foraminal | | | | | Track Hoe Operator [facility] | stenosis of lumbar | | | | | | region - left L5-S1; | | | | | | DDD (degenerative | | | | | | disc disease), | | | | | | lumbar | +--------+ + + + + Social [...] +---------+ + + | Blood Pressure | 109/65 | 04/18/2014 3:50 PM | | | | | PDT | | + +---------+ + + | Pulse | 80 | 04/18/2014 3:50 PM | | | | | PDT [...] [place] | | | | | | [address] | | | | | | | | +--------+---------+ + + + documented as of this encounter Procedures + +--------+ + + + | Procedure Name | Priori | Date/Time | Associated Diagnosis | Comments | | | ty | | | | + +--------+ + + + | FL EPIDURAL STEROID | Routin | 04/18/2014 | Left lumbar | Results for this | | INJECTION LUMBAR | e | 3:38 PM | radiculopathy | procedure are in the | | TRANSFORAMINAL | | PDT | Chronic low back | results section. | | | | | pain Facet [...] | | | lumbar | | + +--------+ + + + documented in this encounter Results FL BRITTNEY Lumbar Transforaminal (04/18/2014 3:38 PM PDT) + + | Specimen | + + | | + + + + + | Narrative | Performed At | + + + | 04/18/2014 Transforaminal Epidural Steroid Injection Diagnosis: | [facility] | | Lumbar radiculopathy ICD-9 Code 724.4 Kori Caputo | [facility] | | Joanne presents to the fluoroscopy suite for a [facility] | | fluoroscopically-guided left L5-S1 [...] | | Steroid InjectionDiagnosis: Lumbar radiculopathyICD-9 Code 724.4Niloe Harshal | | Joanne presents to the [...] [address] | [place] | [phone] | | [facility] | | [address] | | | - IMAGING | | [...] in this encounter Administered Medications + +--------+ +------+------+ + | Medication Order | MAR | Action | Dose | Rate | Site | | | Action | Date | | | | + +--------+ +------+------+ + | betamethasone (CELESTONE | Given | 04/18/20 | 6 mg | | Other | | SOLUSPAN) injection 6 mg 6 mg, | | 14 3:49 | | | (Comment | | Intramuscular, ONCE, Libia 04/18/14 | | PM PDT | | | ) | | at 1600, For 1 dose, Shake well. | | | | | | | Not for IV use., | | | | | | + +--------+ +------+------+ + +---+---+ | | | +---+---+ + +-------+ +-------+---+---+ | iohexol (OMNIPAQUE 300) 300 | Given | 04/18/20 | 3 mLs | | | | mg/mL injection 3 mL 3 mL, | | 14 3:48 | | | | | INTRATHECAL, ONCE, Libia 04/18/14 at | | PM PDT | | | | | 1600, For 1 dose | | | | | | + +-------+ +-------+---+---+ +---+---+ | | | +---+---+ + +-------+ +-------+---+ + | lidocaine 1% injection 5 mL 5 | Given | 04/18/20 | 5 mLs | | Other | | mL, Intradermal, ONCE, Libia | | 14 3:45 | | | (Comment | | 04/18/14 at 1600, For 1 dose | | PM PDT | | | ) | + +-------+ +-------+---+ + +---+---+ | | | +---+---+ + +-------+ +-------+---+---+ | sodium bicarbonate (NEUT) 4% | Given | 04/18/20 | 2 mLs | | | | injection 2 mL 2 mL, Topical, | | 14 3:45 | | | | | ONCE, Libia 04/18/14 at 1600, For 1 | | PM PDT | | | | | dose | | | | | | + +-------+ +-------+---+---+ +---+---+ | | | +---+---+ documented in this encounter"
--- OUTSIDE RECORDS SUMMARY | ~2019-09-24 | XMS | Encounter Summary ---
Demographics + + + | Address | [address] | | | [place] [address] | + + + | Home Phone [...] Team Providers + +------+ + | Care Phosphoric Acid Supervisor Name | Role | Phone | + +------+ + PCP | Unavailable | + +------+ + Encounter Details +--------+ + + + + | Date | Type | Department | Care Team | Description | +--------+ + + + + | 09/22/ | Hospital | [facility] | Shay Dietz | | | 2010 | Encounter | MED CTR XRAY [address] | [address] | | | | | [place] | [place], [place] | | | | | [place] [address] | [address] | | | | | [phone] | | | +--------+ + + + [...] [place] | | | | | | [address] | | | | | | | [...] Performed At | + + + | [facility] Diagnostic Imaging Department | [facility] | | [address] [facility] | [facility] | | LUMBAR FACET INJECTIONS, | DIAG [...] Transcribed Date/Time: | | | 09/22/2011 18:07 Nuclear Supervising Operator: <Electronically Signed | | | by Shay Dietz MD> 09/27/11 1035 | | + + + + + | Procedure Note | + + | Junior, Rad Conversion - 12/07/2013 4:17 PM [facility] | | Diagnostic Imaging Department [address] [place] [address] | | LUMBAR FACET INJECTIONS, 09/22/2011 CLINICAL [...] 17:09 | |Transcribed Date/Time: 09/22/2011 18:07 | |Nuclear Supervising Operator: | |<Electronically Signed by Shay Dietz [...]
--- OUTSIDE RECORDS SUMMARY | ~2019-09-24 | XMS | Encounter Summary ---
Demographics + + + | Address | [address] | | | [place] [address] | + + + | Home Phone [...] Team Providers + +------+ + | Care Information Strategist Name | Role | Phone | [...] + | 04/25/ | Emergency | [facility] | Billy Romo, | Concussion, without | | 2016 | | HOSPITAL EMERGENCY | [address] | LOC, initial | | | | [place] [address] MEDICAL | [employer], | encounter (Primary | | | | [place], [place] | [place] [address] | Dx); Cervical | | | | [address] | [phone] | strain, acute, | | | | [phone] | | initial encounter | +--------+ + [...] sent through Care Everywhere.CERVICAL STRAIN , UNDERSTANDING (AMERICAN)CONCUSSION, AFTER (AMERICAN)CONCUSSION, COPING WITH (AMERICAN)manish disla in this encounter Medications at Time [...] [place] | | | | | | [address] | | | | | | | [...] L?MRN: | | | | | | [id number] | | | [id number] | | | his | | | [...] | | | St. | | | [place] | | | y H. | | [...] | | | St. | | | [place] | | | y | | | [...] | | | n, | | | STRIPPER CUTTER MACHINE, | | | STRIPPER CUTTER MACHINE | | | Primar | | | [...] Performed At | + + + | [address] | | | [place], [place] [address] | | | NAME: KORI HARMON DATE: 04/25/2017 | | | : 1945 PT GENDER: F ROOM: ER PHYSICIAN: | | | BILLY ROMO PID#: [id number] CC TO: MR#: | | | PROCEDURE: [...] MD on 04/25/2017 at 20:07 Transcribed by: SHELLI | | | on 04/26/2017 at 8:41 | | + + + + + | Procedure Note | + + | Doug, Rad Results In - 04/27/2017 9:10 AM [facility] | | [address] [facility] | | [place], [place] [address] | | | | | | NAME: KORI HARMON DATE: 04/25/2017 | | : 1945 PT GENDER: F ROOM: ER | | PHYSICIAN: BILLY ROMO PID#: [id number] | | CC TO: MR#: | | [...] Performed At | + + + | [address] | | | [place], [place] [address] | | | NAME: KORI HARMON DATE: 04/25/2017 | | | : 1945 PT GENDER: F ROOM: ER PHYSICIAN: | | | BLILY ROMO PID#: [id number] CC TO: MR#: | | | PROCEDURE: [...] Results In - 04/27/2017 9:10 AM PDT [facility] | | [address] [place] [address] | | [place], [place] [address] | | | | | | NAME: KORI HARMON DATE: 04/25/2017 | | : 1945 PT GENDER: F ROOM: ER | | PHYSICIAN: BILLY ROMO PID#: [id number] | | CC TO: MR#: | | [...] | + + + + + | [facility] | [address] | [place] [address] | [phone] | | HOSPITAL LABORATORY | | | [...] 99 | 70 - 110 mg/dL | [facility] | | | [facility] | [facility] | | | | | | [facility]OSPITAL | | | | | | LABORATORY | | + + + + + + | BUN | 21 | 5 - 26 mg/dL | [facility] | | | | | | [facility] | | | | | | HOSPITAL | | | | | | LABORATORY | | + + + + + + | Creatinine | 0.83 | >.60-<1.30 | [facility] | | | | | mg/dL | COMMUNITY | | | | | | HOSPITAL | | | | | | LABORATORY | | + + + + + + | eGFR if not | >60Comment: GLOMERULAR | >=60 | [facility] | | | | FILTRATION | mL/min/1.73m2 | [facility] | | | CONGOLESE | RATE,ESTIMATED | | HOSPITAL | | | | mL/min/1.09d3Vyid than | | LABORATORY | | | [...] 6.8 | 6.6 - 8.5 g/dL | [facility] | | | Protein | | | [...] | + + + + + | [facility] | [address] | [place] [address] | [phone] | | HOSPITAL LABORATORY | | | | + + + + + CBC with Differential (04/25/2017 7:20 PM PDT) + + + + + + | Component | Value | Ref Range | Performed | Pathologist | | | | | At | Signature | + + + + + + | WBC | 6.1 | >4.5-<11.0 K/uL | [facility] | | | | | | COMMUNITY [...] | + + + + + | [facility] | [address] | [place] [address] | [phone] | | HOSPITAL LABORATORY | | | | + + + + + documented in this encounter Visit Diagnoses + + | Diagnosis | + + | Concussion, without LOC, initial encounter - Primary | + + | Cervical strain, acute, initial encounter | + + documented in this encounter
--- OUTSIDE RECORDS SUMMARY | ~2019-09-24 | XMS | Encounter Summary ---
Demographics + + + | Address | [address] | | | [place] [address] | + + + | Home Phone [...] Team Providers + +------+ + | Care Professor Of Rhetoric Name | Role | Phone | + [...] low back | PA-C [address] | [facility] [place] | | | | | pain with | [address] | [address] | | | | | right-sided | [place] | Phone: | | | | | sciatica | [address] | [phone] | | | | | Facet | Phone: | Fax: | | | | | arthritis of | [phone] | [phone] | | | | | lumbar | Fax: | | | | | | region | [phone] | | | | | | Adolescent [...] | | | [place], | [address] | | | | | Trochanteric | [place], | [place], | | | | | bursitis of | PA-C [address] | [place] | | | | | right hip | [address] | [address] | | | | | Procedures | [place] | Phone: | | | | | [place] | [address] | [phone] | | | | | Joint | Phone: | Fax: | | | | | Injection | [phone] | [phone] | | | | | Right | Fax: | | | | | | | [phone] | | +--------+--------+ + + + + [...] + + | 02/08/ | Office | [facility] [place] | Shiracz, | Chronic bilateral | | 2017 | Visit | PHYSIATRY [address] | [place] [address] | low back pain with | | | | [address] [place], | [address] [place], | right-sided sciatica | | | | [place] [address] | [place] [address] | (Primary Dx); Facet | | | | [phone] | [phone] | arthritis of lumbar | | | [...] of blood sugars if you are diabetic. termite exterminator risk can lead to osteoporosis which is [...] of the procedure you must provide a corrugated fastener driver to take you home. For all [...] working more h ours due to the [employer] Round up. Her pain back is worse [...] has no apparent deficits with short or care home memory. 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 Unfortunately she lola nues to have significant [...] [place] | | | | | | [address] | | | | | | | [...] Bursa Injection Diagnosis: Lumbar Spondylosis and | [facility] | | Trochanteric Bursitis ICD-10 Code M47.816 and ICD-10 [place] | [facility] | | Harshal Rubio presents to [...] + + | Performing | Address | City/State/[facility] | Phone Number | | Organization | | | | + + + + + | [facility] | [address] | [place], [place] | [phone] | | [facility] | | [address] | | | - IMAGING | | [...]
--- OUTSIDE RECORDS SUMMARY | ~2019-09-24 | XMS | Encounter Summary ---
Demographics + + + | Address | [address] | | | [place] [address] | + + + | Home Phone [...] + + + | Author | [facility] | + + + | Organization | [facility] | + + + | Address | Unknown | + + + | Phone | Unavailable | + + + Support + + +---------+ + | Name | Relationship | Address | Phone | + + +---------+ + | Royce Menchaca | ECON | Unknown | | + + +---------+ + Care Team Providers + +------+ + | Care Beverage Distiller Name | Role | Phone | + [...] for | | 2016 | | at [facility] [address] | [address] | new pt appt) | | | | [place] Mailcode: | [address] [facility] | | | | | [address] | [place] [address] | | | | | Health and Healing, | [phone] | | | | | [facility] | | | | | | floor [place], [place] | | | | | | [address] | | | | | | [phone] | | | +--------+ + + + [...]
--- OUTSIDE RECORDS SUMMARY | ~2019-09-24 | XMS | Encounter Summary ---
Demographics + + + | Address | [address] | | | [place] [address] | + + + | Home Phone [...] Team Providers + +------+ + | Care Hospital Television Rental Clerk Name | Role | Phone | [...] | | | | | | | IN SURG | | | | | | | IMPLNT | | | | | | | NEUROELECT,E | | | | | | | PIDURAL IN | | | | | | | IMPLANT | | | | | | | NEUROSTIM/RE | | | | | | | CEIVER IN | | | | | | | [...] + + | 08/03/ | Surgery | [facility] | Maykel Hutchins MD | LAMINOTOMY THORACIC | | 2019 | | [facility] | [address] | / LUMBAR W/ | | | | OPERATING ROOM [address] | [place] | PLACEMENT SPINAL | | | | [address] | [place] [address] | CORD STIMULATOR | | | | [place] | [phone] | | | | | [address] | | | | | | [phone] | | | +--------+---------+ + + + [...] note might be different from logan phillips. [facility]. 08/04/2019 DISCHARGE SUMMARY PATIENT NAME: [...] by elevating your feet Date Last Reviewed: 1951-0843 [employer]. [address] [place] [address]. All righ ts reserved. This information is not intended as a substitute for professional medical care. Always follow your healthcare professional's instructions. Acetaminophen; Hydrocodone tablets or capsules Brand Names: Anexsia, Lorcet, Lorcet HD, Lorcet Plus, Lortab, [place], Verdrocet, Vicodin, Vi codin ES, Vicodin HP, [...] information carefully each time. Talk to your elementary school teacher's aide regarding the use of this medicine in children. Special care may be needed. What side effects may I notice from receiving this medicine? Side effects that you should report to your doctor or health home child care provider as soon as p ossible: allergic reactions [...] (report to your doctor or health home child care provider if they continue or are bothersome): constipation [...] official disposal site. Contact the [facility] at [phone] or your [facility] to find a site. If you cannot [...] medicine? Tell your doctor or health home child care provider if your pain does not go away, [...] Decreased | | | | | | [facility] current | Responsiveness (May | | | [...] Faria MSW - 08/04/2019 2:12 PM PDTCase academic affairs manager sent out Home Health order to Kadi anny Carpenter today. The patient would need to follow up with patient on Tuesday. Electronical ly signed by ANGEOL Escudero at 08/04/2019 2:13 PM Julien Luevano ARNP - 08/04/2019 8:41 AM PDT Kori Rubio is a 74 y.o. female patient s/p SCS placement with thoracic sequeira inectomy yesterday. Stayed overnight as patient lives alone. She has a friend that will pick her up today to go home to [facility]. Past Medical History: Diagnosis Date Acid reflux disease Acute renal failure ([facility]) April 2013 Adverse effect of anesthesia hx hallucinations after anesthesia x 3 yrs ago. Anesthesia hallucinated after bladder repair Arthralgia Arthritis Asthma Asthma Back pain Cancer ([facility]) 2004 breast Cataract Cerebrovascular accident (CVA) ([facility]) no per pt Chronic back pain Chronic back pain Chronic constipation Concussion 07/2015 Preceeded by seizure Constipation COPD (chronic obstructive pulmonary disease) ([facility]) Degenerative disc disease Depression Depression Diabetes mellitus ([facility]) Diabetes mellitus, type 2 ([facility]) diet controlled Diabetes type 2, controlled ([facility]) diet controlled Diarrhea Disorder of thyroid Diverticulosis [...] 100 mg Oral BID PRN Julien Guzman YARD OPERATOR HYDROcodone-acetaminophen (NORCO) 10-325 mg per tablet 1 tablet 1 tablet Oral Q4H PRN Julien Guzman, YARD OPERATOR 1 tablet at 08/04/19 0502 HYDROmorphone (DILAUDID) injection 0.2-0.4 mg 0.2-0.4 mg Intravenous Q1H PRN Maykel ortiz MD 0.2 mg at 08/03/19 1700 methocarbamol (ROBAXIN) tablet 1,500 mg 1,500 mg Oral Q6H PRN RENATO DavisP ondansetron (ZOFRAN ODT) disintegrating tablet 4 mg 4 mg Oral Q6H PRN Julien Guzman YARD OPERATOR rOPINIRole (REQUIP) tablet 4 mg 4 mg Oral 4x Daily PRN Maykel Hutchins MD senna (SENOKOT) tablet 8.6 mg 8.6 mg Oral BID PRN Julien Guzman YARD OPERATOR sodium chloride 0.45% (1/2 NS) infusion Intravenous Continuous Maykel Hutchins MD 100 mL /hr at 08/03/19 1342 950 mL at 08/03/19 1342 sodium chloride 0.45% (1/2 NS) infusion Intravenous Continuous Julien Guzman YARD OPERATOR 100 m L/hr at 08/04/19 0057 Allergies [...] [place] | | | | | | [address] | | | | | | | [...] | | | Needs | | | ASSET PROTECTION AGENT | | | reques | | | [...] | | POC | performed at [facility];[address] | | LABORATORY | | | | [address];[place], [place] | | | | | | [address] | | | | + + + + + + + + | Specimen | + + | | + + + + + + + | Performing | Address | City/State/Zipcode | Phone Number | | Organization | | | | + + + + + | [facility] | [address] | [place] [address] | [phone] | + + + + + POC Glucose (08/03/2019 4:15 PM PDT) + + + + + + | Component | Value | Ref Range | Performed | Pathologist | | | | | At | Signature | + + + + + + | Glucose, | 99Comment: Testing | 65 - 99 mg/dL | [facility] | | | POC | performed at [facility];[address] | | LABORATORY | | | | [address];[place] | | | | | | [address] | | | | + + + + + + + + | Specimen | + + | | + + + + + + + | Performing | Address | City/State/Zipcode | Phone Number | | Organization | | | | + + + + + | [facility] | [address] | [place] [address] | [phone] | + + + + + POC [...] | | POC | performed at [facility];[address] | | LABORATORY | | | | [address];[place], [place] | | | | | | [address] | | | | + + + + + + + + | Specimen | + + | | + + + + + + + | Performing | Address | City/State/Zipcode | Phone Number | | Organization | | | | + + + + + | [facility] | [address] | [place] [address] | [phone] | + + + + + POC [...] | | POC | performed at [facility];[address] | | LABORATORY | | | | [address];[place] | | | | | | [address] | | | | + + + + + + + + | Specimen | + + | | + + + + + + + | Performing | Address | City/State/Zipcode | Phone Number | | Organization | | | | + + + + + | [facility] | [address] [facility] | [place] [address] | [phone] | + + + + + [place] [...] | | POC | performed at [facility];[address] | | LABORATORY | | | | [address];[place] | | | | | | [address] | | | | + + + + + + + + | Specimen | + + | | + + + + + + + | Performing | Address | City/State/Zipcode | Phone Number | | Organization | | | | + + + + + | [facility] | [address] | [place] [address] | [phone] | + + + + + POC Glucose (08/03/2019 9:14 AM PDT) + + + + + + | Component | Value | Ref Range | Performed | Pathologist | | | | | At | Signature | + + + + + + | Glucose, | 80Comment: Testing | 65 - 99 mg/dL | [facility] | | | POC | performed at [facility];[address] | | LABORATORY | | | | [address];[place] | | | | | | [address] | | | | + + + + + + + + | Specimen | + + | | + + + + + + + | Performing | Address | City/State/Zipcode | Phone Number | | Organization | | | | + + + + + | [facility] | [address] | [place] [address] | [phone] | + + + + + Type [...] + + + | [facility] | [id number] | | [facility] | | | | | | LABORATORY | | + + + + + + | BB BAND | Testing performed at | | [facility] | | | | [facility];[address] | | LABORATORY | | | | Andrzej;[place] [address] | | | | + + + + + + + + | Specimen | + + | Blood | + + + + + + + | Performing | Address | City/State/Zipcode | Phone Number | | Organization | | | | + + + + + | [facility] | [address] | [place] [address] | [phone] | + + + + + POC [...] | | POC | performed at [facility];[address] | | LABORATORY | | | | [address];[place], [place] | | | | | | [address] | | | | + + + + + + + + | Specimen | + + | | + + + + + + + | Performing | Address | City/State/Zipcode | Phone Number | | Organization | | | | + + + + + | [facility] | [address] | [place] [address] | [phone] | + + + + + documented [...] | | | | | | | [facility] 08/03/19 at 1007, Intra-op | [...]
--- OUTSIDE RECORDS SUMMARY | ~2019-09-24 | XMS | Encounter Summary ---
Demographics + + + | Address | [address] | | | [place] [address] | + + + | Home Phone [...] Providers + +------+ + | Care Medical Service Representative Name | Role | Phone | [...] | | | | | right-sided | [place], [place] | [place], [place] | | | | | sciatica | [address] | [address] | | | | | Facet | Phone: | Phone: | | | | | arthritis of | [phone] | [phone] | | | | | lumbar | Fax: | Fax: | | | | | region | [phone] | [phone] | | | | | Foraminal | [...] | Popeye, | | | | | Carton Filling Machine Operator / | Low back | Oxana Sol[place], | [place], | | | | Physical | pain | [place] [address] | [place] | | | | Medicine and | Bilateral | [address] | [address] | | | | Rehabilitatio | leg pain | [place], | [address] [place], | | | | n | Bilateral | [place] [address] | [place] [address] | | | | | hip pain | Phone: | Phone: | | | | | low back | [phone] | [phone] | | | | | pain, | Fax: | Fax: | | | | | bilateral | [phone] | [phone] | | | | | leg pain [...] | (Primary Dx); | | | | [place], | [address] [place], | Chronic right-sided | | | | [place] [address] | [place] [address] | low back pain with | | | | [phone] | [phone] | right-sided | | | | | [...] 07/06/2016 9:31 AM PDT1) Lumbar MRI in [facility] - you need to call us when [...] of the procedure you must provide a pile driver operator helper to take you home. For all procedur [...] and working more hours due to the [employer] Round up. 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 She has appropriate fund of knowledge [...] PT (multiple sessions over the years) and floor care specialist. Unfortunately she lola nues to have significant [...] has been ordered to be done at [place] [address]. We will follow up once images are [...] [place] | | | | | | [address] | | | | | | | [...] ICD-10 Code M47.816 Kori Caputo | [facility] | | Joanne presents to the fluoroscopy suite for [facility] | | fluoroscopically-guided bilateral L5-S1 facet [...] [address] | [place] | [phone] | | [facility] | | [address] | | | - IMAGING | | [...]
--- OUTSIDE RECORDS SUMMARY | ~2019-09-24 | XMS | Encounter Summary ---
Demographics + + + | Address | [address] | | | [place] [address] | + + + | Home Phone [...] Team Providers + +------+ + | Care Loading Machine Operator Helper Name | Role | Phone | [...] | [address] | [place] [address] | | | | | [place] | [phone] | | | | | [address] | | | | | | [phone] | | | +--------+ + + + [...] [place] | | | | | | [id number] | | | | | | | | +--------+---------+ + + + documented as of this encounter Visit Diagnoses Not on filedocumented in this encounter"
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
--- OUTSIDE RECORDS SUMMARY | ~2019-09-24 | XMS | Encounter Summary ---
Demographics + + + | Address | [address] | | | [place] [address] | + + + | Home Phone [...] Providers + +------+ + | Care Plate Molder Name | Role | Phone | [...] | | | | | bilateral | [place], [place] | | | | | | low back | [address] | | | | | | pain with | Phone: | | | | | | right-sided | [phone] | | | | | | sciatica | Fax: | | | | | | | [phone] | | + + + + + [...] | | | | | | | [place] SURG | | | | | | | IMPLNT | | | | | | | NEUROELECT,E | | | | | | | PIDURAL [place] | | | | | | | IMPLANT | | | | | | | NEUROSTIM/RE | | | | | | | CEIVER [place] | | | | | | | [...] + + | 08/03/ | Hospital | [facility] | Maykel Hutchins MD | BACK PAIN, LUMBAR | | 2019 - | Encounter | [facility] | [address] | (Primary Dx); | | | | CARE FLOOR [address] | [place], | Chronic bilateral | | 08/04/ | | [address] | [place] [address] | low back pain with | | 2019 | | [place] | [phone] | right-sided sciatica | | | | [address] | | | | | | [phone] | | | +--------+ + + + [...] note might be different from logan phillips. [facility]. 08/04/2019 DISCHARGE SUMMARY PATIENT NAME: [...] by elevating your feet Date Last Reviewed: [id number] [employer]. [address] [place] [address], [place] [address]. All righ ts reserved. This information is not intended as a substitute for professional medical care. Always follow your healthcare professional's instructions. Acetaminophen; Hydrocodone tablets or capsules Brand Names: Anexsia, Lorcet, Lorcet HD, Lorcet Plus, Lortab, [place], Verdrocet, Vicodin, Vi codin ES, Vicodin HP, [...] information carefully each time. Talk to your portfolio consultant regarding the use of this medicine in children. Special care may be needed. What side effects may I notice from receiving this medicine? Side effects that you should report to your doctor or health managed care provider as soon as p ossible: [...] attention (report to your doctor or health managed care provider if they continue or are [...] to an official disposal site. Contact the [facility] at [phone] or your [facility] government to find a site. If [...] this medicine? Tell your doctor or health managed care provider if your pain does not [...] pharmacist, or health care provider. Copyright 2019 [employer] documented in this encounter Medications at Time [...] Decreased | | | | | | senior living current | Responsiveness (May | | | [...] Faria MSW - 08/04/2019 2:12 PM PDTCase facilities engineering manager sent out Home Health order to [...] her up today to go home to [facility]. Past Medical History: Diagnosis Date Acid reflux disease Acute renal failure ([facility]) April 2013 Adverse effect of anesthesia hx hallucinations after anesthesia x 3 yrs ago. Anesthesia hallucinated after bladder repair Arthralgia Arthritis Asthma Asthma Back pain Cancer ([facility]) 2004 breast Cataract Cerebrovascular accident (CVA) ([facility]) no per pt Chronic back pain Chronic back pain Chronic constipation Concussion 07/2015 Preceeded by seizure Constipation COPD (chronic obstructive pulmonary disease) ([facility]) Degenerative disc disease Depression Depression Diabetes mellitus ([facility]) Diabetes mellitus, type 2 ([facility]) diet controlled Diabetes type 2, controlled ([facility]) diet controlled Diarrhea Disorder [...] Scoliosis Scoliosis of lumbar spine 04/17/2014 Seizure ([facility]) one due to meds, two due to dehydration at least couple years ago Strain of lumbar region 02/25/2019 Syncope and collapse Tardive dyskinesia Use of cane as ambulatory aid Current Facility-Administered Medications Medication Dose Route Frequency Provider Last Rate Last Dose balanced electrolytes in water (PLASMALYTE-148/NORMOSOL-R) infusion Intravenous Christy jaz Dial KattysvetlanaLANE 50 mL/hr at 08/03/19 0753 docusate sodium (COLACE) capsule 100 mg 100 mg Oral BID PRN Julien Ang, YARD WAREHOUSE WORKER HYDROcodone-acetaminophen (NORCO) 10-325 mg per tablet 1 tablet 1 tablet Oral Q4H PRN Julien Ang, YARD WAREHOUSE WORKER 1 tablet at 08/04/19 0502 HYDROmorphone (DILAUDID) injection 0.2-0.4 mg 0.2-0.4 mg Intravenous Q1H PRN Maykel ortiz MD 0.2 mg at 08/03/19 1700 methocarbamol (ROBAXIN) tablet 1,500 mg 1,500 mg Oral Q6H PRN Julien Guzman, YARD WAREHOUSE WORKER ondansetron (ZOFRAN ODT) disintegrating tablet 4 mg 4 mg Oral Q6H PRN Julien Guzman, YARD WAREHOUSE WORKER rOPINIRole (REQUIP) tablet 4 mg 4 mg Oral 4x Daily PRN Maykel Hutchins MD senna (SENOKOT) tablet 8.6 mg 8.6 mg Oral BID PRN Julien Guzman, YARD WAREHOUSE WORKER sodium chloride 0.45% (1/2 NS) infusion Intravenous Continuous Maykel Hutchins MD 100 mL /hr at 08/03/19 1342 950 mL at 08/03/19 1342 sodium chloride 0.45% (1/2 NS) infusion Intravenous Continuous Julien Guzman, YARD WAREHOUSE WORKER 100 m L/hr at 08/04/19 0057 Allergies [...] To Stay over Night/general Dietvorb Julien Guzman. Ricaectronically signed by Jane Vaca RN at 08/03/2019 4:08 PM PDT Jane Vaca RN - 08/03/2019 3:02 PM PDTPT With Pt. Ricaectronically signed by Jane Vaca RN at [...] [place] | | | | | | [address] | | | | | | | [...] | | | Needs | | | MANAGER EDITORIAL | | | reques | | | [...] | | | POC | performed at [facility];8 | | LABORATORY | | | | [address];[place], [place] | | | | | | [address] | | | | + + + + + + + + | Specimen | + + | | + + + + + + + | Performing | Address | City/State/Zipcode | Phone Number | | Organization | | | | + + + + + | [facility] | [address] | [place] [address] | [phone] | + + + + + POC Glucose (08/03/2019 4:15 PM PDT) + + + + + + | Component | Value | Ref Range | Performed | Pathologist | | | | | At | Signature | + + + + + + | Glucose, | 99Comment: Testing | 65 - 99 mg/dL | [facility] | | | POC | performed at [facility];[address] | | LABORATORY | | | | [address];[place] | | | | | | [address] | | | | + + + + + + + + | Specimen | + + | | + + + + + + + | Performing | Address | City/State/Zipcode | Phone Number | | Organization | | | | + + + + + | [facility] | [address] | [place] [address] | [phone] | + + + + + POC [...] | | | POC | performed at [facility];[address] | | LABORATORY | | | | [address];[place] | | | | | | [address] | | | | + + + + + + + + | Specimen | + + | | + + + + + + + | Performing | Address | City/State/Zipcode | Phone Number | | Organization | | | | + + + + + | [facility] | [address] | [place] [address] | [phone] | + + + + + POC Glucose (08/03/2019 11:05 AM PDT) + + + + + + | Component | Value | Ref Range | Performed | Pathologist | | | | | At | Signature | + + + + + + | Glucose, | 108 (H)Comment: Testing | 65 - 99 mg/dL | [facility] | | | POC | performed at [facility];[address] | | LABORATORY | | | | [address];[place] | | | | | | [address] | | | | + + + + + + + + | Specimen | + + | | + + + + + + + | Performing | Address | City/State/Zipcode | Phone Number | | Organization | | | | + + + + + | [facility] | [address] | [place] [address] | [phone] | + + + + + LINSEY [...] | | | POC | performed at [facility];[address] | | LABORATORY | | | | [address];[place] | | | | | | [address] | | | | + + + + + + + + | Specimen | + + | | + + + + + + + | Performing | Address | City/State/Zipcode | Phone Number | | Organization | | | | + + + + + | [facility] | [address] | [place] [address] | [phone] | + + + + + POC Glucose (08/03/2019 9:14 AM PDT) + + + + + + | Component | Value | Ref Range | Performed | Pathologist | | | | | At | Signature | + + + + + + | Glucose, | 80Comment: Testing | 65 - 99 mg/dL | [facility] | | | POC | performed at [facility];[address] | | LABORATORY | | | | [address];[place] | | | | | | [address] | | | | + + + + + + + + | Specimen | + + | | + + + + + + + | Performing | Address | City/State/Zipcode | Phone Number | | Organization | | | | + + + + + | [facility] | [address] | [place] [address] | [phone] | + + + + + Type [...] + + + | BB BAND | [id number] | | [facility] | | | | | | LABORATORY | | + + + + + + | BB BAND | Testing performed at | | [facility] | | | | [facility];[address] | | LABORATORY | | | | [address];[place] [address] | | | | + + + + + + + + | Specimen | + + | Blood | + + + + + + + | Performing | Address | City/State/Zipcode | Phone Number | | Organization | | | | + + + + + | [facility] | [address] | [place] [address] | [phone] | + + + + + POC Glucose (08/03/2019 7:23 AM PDT) + + + + + + | Component | Value | Ref Range | Performed | Pathologist | | | | | At | Signature | + + + + + + | Glucose, | 77Comment: Testing | 65 - 99 mg/dL | [facility] | | | POC | performed at [facility];[address] | | LABORATORY | | | | [address];[place], [place] | | | | | | [address] | | | | + + + + + + + + | Specimen | + + | | + + + + + + + | Performing | Address | City/State/Zipcode | Phone Number | | Organization | | | | + + + + + | [facility] | [address] | [place] [address] | [phone] | + + + + + documented [...] | | | | | | longer, jvmwao-sow-axwqa use of | | | | | [...] | | | | | | | dukuyo-eai-wntfp use of at least | | | [...]
--- OUTSIDE RECORDS SUMMARY | ~2019-09-24 | XMS | Encounter Summary ---
Demographics + + + | Address | [address] | | | [place] [address] | + + + | Home Phone [...] + + + | Author | [facility] | + + + | Organization | [facility] | + + + | Address | Unknown | + + + | Phone | Unavailable | + + + Support + + +---------+ + | Name | Relationship | Address | Phone | + + +---------+ + | Royce Menchaca | ECON | Unknown | | + + +---------+ + Care Team Providers + +------+ + | Care Photonics Engineering Technologist Name | Role | Phone | [...] 2012 | | [facility] | [address] | (Dr. Holbrook) | | | | [address] | [address] | | | | | [address] | [place], [place] | | | | | [facility] | [address] | | | | | [place], [place] | [phone] | | | | | [address] | | | | | | [phone] | | | +--------+ + + + [...]
--- OUTSIDE RECORDS SUMMARY | ~2019-09-24 | XMS | Encounter Summary ---
Demographics + + + | Address | [address] | | | [place] [address] | + + + | Home Phone [...] Team Providers + +------+ + | Care Environmental Scientist Name | Role | Phone | [...] | | [address] | [place] [address] | | | | | [place] | [phone] | | | | | [address] | | | | | | [phone] | | | +--------+ + + + [...] [place] | | | | | | [address] | | | | | | | | +--------+---------+ + + + documented as of this encounter Visit Diagnoses Not on filedocumented in this encounter"
--- OUTSIDE RECORDS SUMMARY | ~2019-09-24 | XMS | Encounter Summary ---
Demographics + + + | Address | [address] | | | [place] [address] | + + + | Home Phone [...] Providers + +------+ + | Care Motor Equipment Commanding Officer Name | Role | Phone | [...] | | [address] | [place] [address] | | | | | [place] | [phone] | | | | | [address] | | | | | | [phone] | | | +--------+ + + + [...] [place] | | | | | | [address] | | | | | | | | +--------+---------+ + + + documented as of this encounter Visit Diagnoses Not on filedocumented in this encounter"
--- OUTSIDE RECORDS SUMMARY | ~2019-09-24 | XMS | Encounter Summary ---
Demographics + + + | Address | [address] | | | [place] [address] | + + + | Home Phone [...] Team Providers + +------+ + | Care Byproducts Supervisor Name | Role | Phone | + +------+ + PCP | Unavailable | + +------+ + Encounter Details +--------+ + + + + | Date | Type | Department | Care Team | Description | +--------+ + + + + | 10/06/ | [facility] | [facility] | Robert Perales | | | 2010 | Encounter | MED CTR SLEEP | MD Eric Rivera Dexter | | | | | CENTER [address] | [address] [place] | | | | | [place], [place] | [place] [address] | | | | | [address] | [phone] | | | | | [phone] | | | +--------+ + + + [...] [place] | | | | | | [address] | | | | | | | | +--------+---------+ + + + documented as of this encounter Visit Diagnoses Not on filedocumented in this encounter"
--- OUTSIDE RECORDS SUMMARY | ~2019-09-24 | XMS | Encounter Summary ---
Demographics + + + | Address | [address] | | | [place] [address] | + + + | Home Phone [...] Providers + +------+ + | Care Master Ocean Name | Role | Phone | + [...] + + | 09/04/ | Telephone | [facility] | Shay Dietz | Appointment | | 2012 | | PHYSIATRY [address] | [address] | | | | | [place], | [place], [place] | | | | | [place] [address] | [address] | | | | | [phone] | | | +--------+ + + + [...] [place] | | | | | | [address] | | | | | | | | +--------+---------+ + + + documented as of this encounter Visit Diagnoses Not on filedocumented in this encounter"
--- OUTSIDE RECORDS SUMMARY | ~2019-09-24 | XMS | Encounter Summary ---
Demographics + + + | Address | [address] | | | [place] [address] | + + + | Home Phone [...] Team Providers + +------+ + | Care School Transportation Supervisor Name | Role | Phone | + +------+ + PCP | Unavailable | + +------+ + Encounter Details +--------+ + + + + | Date | Type | Department | Care Team | Description | +--------+ + + + + | 09/07/ | Hospital | [facility] | | | | 1998 - | Encounter | MED CTR CANCER | | | | | | [address] Hernade[address] | | | | 10/30/ | | [place] | | | | 1998 | | [address] | | | | | | [phone] | | | +--------+ + + + [...] [place] | | | | | | [address] | | | | | | | | +--------+---------+ + + + documented as of this encounter Visit Diagnoses Not on filedocumented in this encounter"
--- OUTSIDE RECORDS SUMMARY | ~2019-09-24 | XMS | Encounter Summary ---
Demographics + + + | Address | [address] | | | [place] [address] | + + + | Home Phone [...] Providers + +------+ + | Care Software Engineering Specialist Name | Role | Phone | [...] + | 08/31/ | Telephone | [facility] | Niki Pizarro, | Other (patient | | 2019 | | NEUROSURGERY [address] | RN | trying to reach | | | | [place] | | [facility]'s office) | | | | [place] | | | | | | [address] | | | | | | [phone] | | | +--------+ + + + [...] [place] | | | | | | [address] | | | | | | | | +--------+---------+ + + + documented as of this encounter Visit Diagnoses Not on filedocumented in this encounter"
--- OUTSIDE RECORDS SUMMARY | ~2019-09-24 | XMS | Encounter Summary ---
Demographics + + + | Address | [address] | | | [place] [address] | + + + | Home Phone [...] Team Providers + +------+ + | Care Marine Designer Name | Role | Phone | [...] 2019 | | [facility] | [address] | [facility] | | | | ORTHOPEDIC SPINE | [place], | Healthcare Orders) | | | | [address] [place] | [place] [address] | | | | | [place] | [phone] | | | | | [address] | | | | | | [phone] | | | +--------+ + + + [...] [place] | | | | | | [address] | | | | | | | | +--------+---------+ + + + documented as of this encounter Visit Diagnoses Not on filedocumented in this encounter"
--- OUTSIDE RECORDS SUMMARY | ~2019-09-24 | XMS | Encounter Summary ---
Demographics + + + | Address | [address] | | | [place] [address] | + + + | Home Phone [...] | | + + +---------+ + | aNthalia Weinstein | ECON | Unknown | | + + +---------+ + Care Team Providers + +------+ + | Care Liaison Planner Name | Role | Phone | + [...] + + | 06/21/ | Telephone | [facility] [place] | [place], | Injections | | 2015 | | PHYSIATRY [address] | [address] | | | | | [place], | [facility], | | | | | [place] [address] | [place] [address] | | | | | [phone] | [phone] | | | | | | | [...] [place] | | | | | | [address] | | | | | | | | +--------+---------+ + + + documented as of this encounter Visit Diagnoses Not on filedocumented in this encounter"
--- OUTSIDE RECORDS SUMMARY | ~2019-09-24 | XMS | Encounter Summary ---
Demographics + + + | Address | [address] | | | [place] [address] | + + + | Home Phone [...] Team Providers + +------+ + | Care Stone Setter Metal Optical Frames Name | Role | Phone | [...] [facility] | TOWEL STRETCHER [place], [place] | | | | | [address] | [address] | | | | | [address] | | | | | | [place] | | | | | | [place], [place] | | | | | | [address] | | | | | | [phone] | | | +--------+ + + + [...]
--- OUTSIDE RECORDS SUMMARY | ~2019-09-24 | XMS | Encounter Summary ---
Demographics + + + | Address | [address] | | | [place] [address] | + + + | Home Phone [...] Team Providers + +------+ + | Care Machinery Erector Name | Role | Phone | + +------+ + | Miquel Calhoun MD | PCP | | + +------+ + Encounter Details +--------+ + + + + | Date | Type | Department | Care Team | Description | +--------+ + + + + | 11/29/ | Documentati | [facility] | Khushbu Cortez, | | | 2013 | on | [facility] | WEB WEAVER [place], [place] | | | | | [address] | [address] | | | | | [address] | | | | | | [place] | | | | | | [facility] [place] | | | | | | [address] | | | | | | [phone] | | | +--------+ + + + [...]
--- OUTSIDE RECORDS SUMMARY | ~2019-09-24 | XMS | Encounter Summary ---
Demographics + + + | Address | [address] | | | [place] [address] | + + + | Home Phone [...] Team Providers + +------+ + | Care Town Justice Name | Role | Phone | + +------+ + | No, Physician | PCP | Unavailable | + +------+ + Encounter Details +--------+ + + + + | Date | Type | Department | Care Team | Description | +--------+ + + + + | 01/08/ | Hospital | [facility] | Shay Dietz | Lumbar radiculopathy | | 2013 | Encounter | MED CTR XRAY [address] | [address] | | | | | [place] | [facility] [place] | | | | | [place] [address] | [address] | | | | | [phone] | | | | | | | Pressure Vessel Inspector, Ws | | +--------+ + + + [...] [place] | | | | | | [address] | | | | | | | [...] radiculopathy ICD-9 Code 724.4 Ms. Sheikh | [facility] | | Joanne presents to the fluoroscopy suite for a [facility] | | fluoroscopically-guided left L5-S1 transforaminal [...] [address] | [place] | [phone] | | [facility] | | [address] | | | - IMAGING | | [...]
--- OUTSIDE RECORDS SUMMARY | ~2019-09-24 | XMS | Encounter Summary ---
Demographics + + + | Address | [address] | | | [place] [address] | + + + | Home Phone [...] Providers + +------+ + | Care Hospital Secretary Name | Role | Phone | + +------+ + | Wendi Aiken | PCP | | + +------+ + Encounter Details +--------+ + + + + | Date | Type | Department | Care Team | Description | +--------+ + + + + | 06/13/ | Hospital | [facility] | SonjaAlfredo DO | Closed compression | | 2018 | Encounter | MEDICAL CENTER | [address] | fracture of fifth | | | | CLINICAL DECISION | [place] [address] | lumbar vertebra, | | | | [address] | [phone] | initial encounter | | | | [place], [place] | | ([facility]) | | | | [address] | | | | | | [phone] | | | +--------+ + + + [...] 06/13/181408 Date of Service: 06/13/181408 Status: Signed Compliance Quality Performance Analyst: Cristiane Araujo RN (Registered Nurse) Pt discharge [...] Notes by Kiya Dietrich RN at 06/13/18 1008 Author: Kiya Dietrich RN Service: General Surgery Author Type: Registered Nurse Filed: 06/13/18 100 Date of Service: 06/13/18 100 Status: Signed Compliance Quality Performance Analyst: Kyia Dietrich RN (Registered Nurse) Report given to [...] [place] | | | | | | [address] | | | | | | | [...] | | Fingerstick | performed at [facility];[address] | | LAB | | | | [address];[place] | | | | | | [address] | | | | + + + [...]
--- OUTSIDE RECORDS SUMMARY | ~2019-09-24 | XMS | Encounter Summary ---
Demographics + + + | Address | [address] | | | [place] [address] | + + + | Home Phone [...] Team Providers + +------+ + | Care Distribution Engineering Technologist Name | Role | Phone | + +------+ + PCP | Unavailable | + +------+ + Encounter Details +--------+ + + + + | Date | Type | Department | Care Team | Description | +--------+ + + + + | 06/26/ | Respiratory | | Other, Faculty | | | 2006 | Therapy | | [phone] | | +--------+ + + + + [...] Hassan, | | | | | | HUMAN MACHINE INTERFACE ENGINEER | | | | + + + [...] RADHA ALONZO | [address] | [place], [place] | | | DIAGNOSTICS - | [place] | [address] | | | PULMONARY FUNCTION | | | | + + + + + documented in this encounter Visit Diagnoses Not on filedocumented in this encounter"
--- OUTSIDE RECORDS SUMMARY | ~2019-09-24 | XMS | Encounter Summary ---
Demographics + + + | Address | [address] | | | [place] [address] | + + + | Home Phone [...] Team Providers + +------+ + | Care Salvage Inspector Name | Role | Phone | + +------+ + | Wendi Aiken | PCP | | + +------+ + Encounter Details +--------+ + + + + | Date | Type | Department | Care Team | Description | +--------+ + + + + | 04/07/ | Imaging | [facility] | Provider, | | | 2018 | Exam | MED CTR EXTERNAL | [address] | | | | | IMAGING | [address] | | | | | [phone] | [place] [address] | | +--------+ + + + + [...] [facility] | | | | | | [address] | | | | | | | [...]
--- OUTSIDE RECORDS SUMMARY | ~2019-09-24 | XMS | Encounter Summary ---
Demographics + + + | Address | [address] | | | [place] [address] | + + + | Home Phone [...] Providers + +------+ + | Care Head Track Coach Name | Role | Phone | + +------+ + | No, Physician | PCP | Unavailable | + +------+ + Encounter Details +--------+ + + + + | Date | Type | Department | Care Team | Description | +--------+ + + + + | 01/08/ | Hospital | [facility] | Shay Dietz | Lumbar radiculopathy | | 2013 | Encounter | MED CTR XRAY [address] | [address] | | | | | [place] | [facility] [place] [place] | | | | | [place] [address] | [address] | | | | | [phone] | | | | | | | Subassembly Assembler, [place] | | +--------+ + + + [...] [place] | | | | | | [address] | | | | | | | [...] ICD-9 Code 724.4 Ms. Sheikh | [facility] | | Joanne presents to the fluoroscopy suite for a [facility] | | fluoroscopically-guided left L5-S1 transforaminal epidural [...] [address] | [place] | [phone] | | [facility] | | [address] | | | - IMAGING | | [...]
--- OUTSIDE RECORDS SUMMARY | ~2019-09-24 | XMS | Encounter Summary ---
Demographics + + + | Address | [address] | | | [place] [address] | + + + | Home Phone [...] | + + +---------+ + | Giuseppe Menhcaca | ECON | Unknown | | + + +---------+ + | Nathalia Weinstein | ECON | Unknown | | + + +---------+ + Care Team Providers + +------+ + | Care Plastic Printer Name | Role | Phone | [...] + + | 07/26/ | Telephone | [facility] | Darrin Hoyos | Records Request (MRI | | 2013 | | NEUROSURGERY [address] | [address] | OF LUMBAR SPINE) | | | | [address] | [address] | | | | | [place] | [place] | | | | | [address] | [address] | | | | | [phone] | | | +--------+ + + + [...] [place] | | | | | | [address] | | | | | | | | +--------+---------+ + + + documented as of this encounter Visit Diagnoses Not on filedocumented in this encounter"
--- OUTSIDE RECORDS SUMMARY | ~2019-09-24 | XMS | Encounter Summary ---
Demographics + + + | Address | [address] | | | [place] [address] | + + + | Home Phone [...] Team Providers + +------+ + | Care Civil Transportation Engineer Name | Role | Phone | + +------+ + | Wendi Aiken | PCP | | + +------+ + Encounter Details +--------+ + + + + | Date | Type | Department | Care Team | Description | +--------+ + + + + | 04/06/ | Hospital | [facility] | Nick Martinez, | Lumbar radiculopathy | | 2018 | Encounter | MED CTR XRAY [address] | PA-C [address] | | | | | [place] | [address] [place] | | | | | [place] [address] | [place] [address] | | | | | [phone] | [phone] | | | | | | | | | | | | Medical Physics Researcher, [facility] | | +--------+ + + + [...] [place] | | | | | | [address] | | | | | | | [...] 1:20 | | | | | ONCE, [facility] 04/06/18 at 1330, For 1 | [...] | | | | | Other, ONCE, [facility] 04/06/18 at 1330, | | PM PDT | | | | | For 1 dose | | | | | | + +-------+ +-------+---+---+ +---+---+ | | | +---+---+ + +-------+ +-------+---+---+ | lidocaine (PF) 1% injection 2 | Given | 04/06/20 | 2 mLs | | | | mL 2 mL, Other, ONCE, [facility] 04/06/18 | | 18 1:20 | [...] | | (Comment | | Intradermal, ONCE, [facility] 04/06/18 at | | PM PDT | | | ) | | 1330, For 1 dose | | | | | | + +-------+ +-------+---+ + +---+---+ | | | +---+---+ documented in this encounter"
--- OUTSIDE RECORDS SUMMARY | ~2019-09-24 | XMS | Encounter Summary ---
Demographics + + + | Address | [address] | | | [place] [address] | + + + | Home Phone [...] Team Providers + +------+ + | Care Insurance Verification Rep Name | Role | Phone | [...] 2013 | | PHYSIATRY [address] | RIVETER HAND | (Primary Dx) | | | | [place], | | | | | | [place] [address] | | | | | | [phone] | | | +--------+ + + + [...] [place] | | | | | | [address] | | | | | | | [...] ICD-9 Code 724.4 Ms. Sheikh | [facility] | | Joanne presents to the fluoroscopy suite for a [facility] | | fluoroscopically-guided left L5-S1 [...] [address] | [place] | [phone] | | [facility] | | [address] | | | - IMAGING | | | | + + + + + documented in this encounter Visit Diagnoses + + | Diagnosis | + + | Lumbar radiculopathy - Primary Thoracic or lumbosacral neuritis or radiculitis, | | unspecified | + + documented in this encounter"
--- OUTSIDE RECORDS SUMMARY | ~2019-09-24 | XMS | Encounter Summary ---
Demographics + + + | Address | [address] | | | [place] [address] | + + + | Home Phone [...] Team Providers + +------+ + | Care Ammonia Operator Name | Role | Phone | [...] | | | | | | | NH SURG | | | | | | | IMPLNT | | | | | | | NEUROELECT,E | | | | | | | PIDURAL NH | | | | | | | IMPLANT | | | | | | | NEUROSTIM/RE | | | | | | | CEIVER NH | | | | | | | [...] + + | 08/03/ | Anesthesia | [facility] | Yojana Arellano CRNA | | | 2019 | Event [facility] | [address] | | | | | OPERATING RO[address] | [place] [address] | | | | | [address] | [phone] | | | | | [place], [place] | | | | | | [address] | | | | | | [phone] | | | +--------+ + + + [...] +----+---+ + + | | 0 | Bryant | | | | 9 | 43-degrees [...] [address] | | eral | Antecubital; [id number] | Mikayla Marcial, | Gamal Whitney, | [...] | | | | | | DRIVE [place], [place] | | | | | | [address] | | | | | | | [...] - 08/03/2019 9:52 AM PDT Anesthesia Airway Lktqaqeby30/4/2019 | | 9:33Preprocedure check: patient identified, oxygen, [...]
--- OUTSIDE RECORDS SUMMARY | ~2019-09-24 | XMS | Encounter Summary ---
Demographics + + + | Address | [address] | | | [place] [address] | + + + | Home Phone | | + + + | Preferred Language | Unknown | + + + | Marital Status | Single | + + + | Cheondoism Affiliation | NON | + + + [...] Providers + +------+ + | Care Gas Golf Cart Repairer Name | Role | Phone | [...] | | | | | Juliana [address]te [place], | | | | | | [place] [address] | | | +--------+ + + + [...]
--- OUTSIDE RECORDS SUMMARY | ~2019-09-24 | XMS | Encounter Summary ---
Demographics + + + | Address | [address] | | | [place] [address] | + + + | Home Phone [...] Providers + +------+ + | Care Lead Data Entry Operator Name | Role | Phone | + +------+ + | Concepción Gallardo NP | PCP | | + +------+ + Encounter Details +--------+ + + + + | Date | Type | Department | Care Team | Description | +--------+ + + + + | 11/26/ | Hospital | [facility] | Conversion | Peripheral vertigo, | | 2016 | Encounter | [facility] MRI [address] | Transaction, | unspecified | | | | [address] | Provider Unknown | laterality; | | | | [place], [place] | | Post-concussion | | | | [address] | (Fax) | vertigo | | | | [phone] | | | +--------+ + + + [...] Note by Rosy Bautista RN at 11/26/15 4957 Author: Rosy Bautista RN Service: (none) Author Type: Registered Nurse Filed: 11/26/15 2195 Date of Service: 11/26/15 7574 Status: Signed Residential Property Manager: Rosy Bautista RN (Registered Nurse) Responded to [...] the er befor e returning home [place]. Pt reluctant but willing to go to [...] [place] | | | | | | [id number] | | | | | | | [...] | | | Fingerstick | performed at [facility];[address] | | LAB | | | | Rosenda Donnelly;[place], [place] | | | | | | [address] | | | | + + + [...]
--- OUTSIDE RECORDS SUMMARY | ~2019-09-24 | XMS | Encounter Summary ---
Demographics + + + | Address | [address] | | | [place] [address] | + + + | Home Phone [...] Providers + +------+ + | Care Metal Tile Setter Name | Role | Phone | + [...] | | [address] | [place] [address] | | | | | [place] | [phone] | | | | | [address] | | | | | | [phone] | | | +--------+ + + + [...] [place] | | | | | | [address] | | | | | | | | +--------+---------+ + + + documented as of this encounter Visit Diagnoses Not on filedocumented in this encounter"
--- OUTSIDE RECORDS SUMMARY | ~2019-09-24 | XMS | Encounter Summary ---
Demographics + + + | Address | [address] | | | [place] [address] | + + + | Home Phone | | + + + | Preferred Language | Unknown | + + + | Marital Status | Single | + + + | Roman Catholic Affiliation | NON | + + [...] + +------+ + | Care Director Of Web Marketing Name | Role | Phone | + [...] | Telephone | [facility] | Britta Hankins MD | Appointment | | 2012 | | [facility] | [address] | | | | | Pav[address] | Juliana Schulte [place], | | | | | [address] | [place] [address] | | | | | Aravind Hannon | [phone] | | | | | [place], [place] | | | | | | [address] | | | | | | [phone] | | | +--------+ + + + [...] + | Diagnosis | + + | TRICIA (stress urinary incontinence, female) - Primary Female stress incontinence | + + documented in this encounter"
--- OUTSIDE RECORDS SUMMARY | ~2019-09-24 | XMS | Encounter Summary ---
Demographics + + + | Address | [address] | | | [place] [address] | + + + | Home Phone | | + + + | Preferred Language | Unknown | + + + | Marital Status | Single | + + + | Alevism Affiliation | NON | + + + [...] Team Providers + +------+ + | Care Apple Turner Name | Role | Phone | + [...] | at [facility] [address] | [address] | havea problem with | | | | Abbe Soto Mailcode: | [address] [facility], | my heart. | | | | [address] | [place] [address] | | | | | Health [facility], | [phone] | | | | | [facility] | | | | | | floor [place], [place] | | | | | | [address] | | | | | | [phone] | | | +--------+ + + + [...]
--- OUTSIDE RECORDS SUMMARY | ~2019-09-24 | XMS | Encounter Summary ---
Demographics + + + | Address | [address] | | | [place] [address] | + + + | Home Phone [...] | Author | [facility] (Historical as of | | | 06-16-19) | + + + | Organization | [facility] (Historical as of | | | 06-16-19) [...] Team Providers + +------+ + | Care Airframe Design Engineer Name | Role | Phone | + +------+ + | Romy De La Paz MD | PCP | | + +------+ + Encounter Details +--------+ + + + + | Date | Type | Department | Care Team | Description | +--------+ + + + + | 08/03/ | Hospital | [facility] | Maykel Hutchins MD | Postlaminectomy | | 2019 | Encounter | [facility] | [address] | syndrome, thoracic | | | | Operating Room [address] | [place] [address] | region; | | | | [address] | [phone] | Radiculopathy of | | | | [place] [address] | | thoracolumbar | | | | [phone] | | region; | | | | [...]
--- OUTSIDE RECORDS SUMMARY | ~2019-09-24 | XMS | Encounter Summary ---
Demographics + + + | Address | [address] | | | [place] [address] | + + + | Home Phone [...] Providers + +------+ + | Care Clinical Social Work Therapist Name | Role | Phone | [...] + + | 08/05/ | Office | [facility] | [place], | Foraminal stenosis | | 2013 | Visit | PHYSIATRY [address] | [address] | of lumbar region - | | | | [place], | [place], | left L5-S1 (Primary | | | | [place] [address] | [place] [address] | Dx); Left lumbar | | | | [phone] | [phone] | radiculopathy; DDD | | | | [...] of the procedure you must provide a water truck driver to take you home. For [...] no apparent deficits with short or terminal system operator memory. She has appropriate fund of [...] along with flexion/extension xray's perf ormed in [place] last week. I will request for these [...] [place] | | | | | | [address] | | | | | | | [...] presents to the fluoroscopy suite for a [facility] | | fluoroscopically-guided left L5-S1 [...] + + | Performing | Address | City[facility] | Phone Number | | Organization | | | | + + + + + | [facility] [facility] | [address] | [place] | [phone] | | [facility] | | [address] | | | - IMAGING | | [...]
--- OUTSIDE RECORDS SUMMARY | ~2019-09-24 | XMS | Encounter Summary ---
Demographics + + + | Address | [address] | | | [place] [address] | + + + | Home Phone [...] Providers + +------+ + | Care Seo Professional Name | Role | Phone | + +------+ + | Romy De La Paz MD | PCP | | + +------+ + Encounter Details +--------+ + + + + | Date | Type | Department | Care Team | Description | +--------+ + + + + | 07/17/ | Prep for | [facility] | Maykel Hutchins MD | Chronic low back | | 2019 | Procedure | [facility] | [address] | pain with sciatica, | | | | ORTHOPEDIC SPINE | [facility], | sciatica laterality | | | | [address] [place] | [place] [address] | unspecified, | | | | [facility] [place] | [phone] | unspecified back | | | | [address] | | pain laterality | | | | [phone] | | (Primary Dx); Right | | [...] [place] | | | | | | [address] | | | | | | | [...]
--- OUTSIDE RECORDS SUMMARY | ~2019-09-24 | XMS | Encounter Summary ---
Demographics + + + | Address | [address] | | | [place] [address] | + + + | Home Phone [...] Team Providers + +------+ + | Care Microfilm Processor Name | Role | Phone | [...] [address] | | | | | [place], | [place], | | | | | [place] [address] | [place] [address] | | | | | [phone] | [phone] | | | | | | | [...] [place] | | | | | | [address] | | | | | | | | +--------+---------+ + + + documented as of this encounter Visit Diagnoses Not on filedocumented in this encounter"
--- OUTSIDE RECORDS SUMMARY | ~2019-09-24 | XMS | Encounter Summary ---
Demographics + + + | Address | [address] | | | [place] [address] | + + + | Home Phone [...] Providers + +------+ + | Care Cnc Lathe Programmer Name | Role | Phone | + +------+ + PCP | Unavailable | + +------+ + Encounter Details +--------+ + + + + | Date | Type | Department | Care Team | Description | +--------+ + + + + | 06/26/ | Respiratory | | Other, Faculty | | | 2006 | Therapy | | [phone] | | +--------+ + + + + [...] RADHA ALONZO | [address] | [place], [place] | | | DIAGNOSTICS - | JORGE LUIS JIM | [address] | | | PULMONARY FUNCTION | | | | + + + + + documented in this encounter Visit Diagnoses Not on filedocumented in this encounter"
--- OUTSIDE RECORDS SUMMARY | ~2019-09-24 | XMS | Encounter Summary ---
Demographics + + + | Address | [address] | | | [place] [address] | + + + | Home Phone [...] Team Providers + +------+ + | Care Reproduction Machine Loader Name | Role | Phone | [...] [address] | [address] | | | | | [address] | [address] | | | | | [place], [place] | [place], [place] | | | | | [address] | [address] | | | | | [phone] | | | +--------+ + + + [...] [place] | | | | | | [id number] | | | | | | | | +--------+---------+ + + + documented as of this encounter Visit Diagnoses Not on filedocumented in this encounter"
--- OUTSIDE RECORDS SUMMARY | ~2019-09-24 | XMS | Encounter Summary ---
Demographics + + + | Address | [address] | | | [place] [address] | + + + | Home Phone | | + + + | Preferred Language | Unknown | + + + | Marital Status | | + + + | Caodaism Affiliation | 1013 | + + + | Race | Unknown | + + + | Ethnic Group | Unknown | + + + Author + + + | Author | [facility] | | | and Priteshana | + + + | Organization | [facility] | | | and [...] Providers + +------+ + | Care Oil Well Services Field Supervisor Name | Role | Phone | [...] | | | stenosis | B | [address] | | | | | | [place], [place] | Phone: | | | | | | [address] | [phone] | | | | | | Phone: | Fax: | | | | | | [phone] | [phone] | | | | | | Fax: | | | | | | | [phone] | | + +--------+ + + + + Encounter Details +--------+---------+ + + + | Date | Type | Department | Care Team | Description | +--------+---------+ + + + | 08/16/ Office | [facility] | Denys S[place]y, | S/P insertion of | | 2018 | Visit | [facility] | DO [address] | spinal cord | | | | DOLOROLOGY [address] | [address]EFERSON MD | stimulator (Primary | | | | [address] [place] | [address] | Dx); Spinal stenosis | | | | [place], [place] | | of lumbosacral | | | | [address] | | region; Intractable | | | | [phone] | | back pain; Encounter | | [...] anterior chest wall every 72 hours, and [place] 7.5/325 1 p.o. every 6 hours as [...] reflux disease Acute renal failure ([facility]) April 2013 Adverse effect of anesthesia hx hallucinations after anesthesia x 3 yrs ago. Anesthesia hallucinated after bladder repair Arthralgia Arthritis Asthma Asthma Back pain Cancer ([facility]) 2004 breast Cataract Cerebrovascular accident (CVA) ([facility]) no per pt Chronic back [...] Screen 08/03/2019 NEGATIVE Final BB BAND 08/03/2019 [id number] Final BB BAND 08/03/2019 Testing performed at [facility];[address] [place] [address];[place] [address] Final Glucose, POC 08/03/2019 77 65 - [...] Final Antibody Screen 07/18/2019 Testing performed at [facility];[address] [place] [address];[place] [address] Final SOURCE: 07/18/2019 NARES(NOSE) Final Result 07/18/2019 [...] to physical therapy, mass age therapy, acupuncture, auto care center manager, along with recommended psychological counseling , either privately, or in group sessions offered by private care individuals, community serv ices, or restorationist organizations. Appropriate referrals were made at patient [...] every 72 hours con tinue with the [place] 10/325 1 p.o. every 6 hours as needed breakthrough pain and Robaxin 500 mg every 6 hours as needed muscle spasms Patient understands and is in full agreement with the above plan, Will return to office in 4 weeks, [facility] was consulted and appears appropriate, [...] and complications with the passage of time. snf use is also associated with depressions, and [...] [place] | | | | | | [address] | | | | | | | [...]
--- OUTSIDE RECORDS SUMMARY | ~2019-09-24 | XMS | Encounter Summary ---
Demographics + + + | Address | [address] | | | [place] [address] | + + + | Home Phone | | + + + | Preferred Language | Unknown | + + + | Marital Status | Single | + + + | Sabianist Affiliation | NON | + + + | Race | White | + + + | Ethnic Group | Not or | + + + Author + + + | Author | [facility] | + + + | Organization | [facility] | + + + | Address | Unknown | + + + | Phone | Unavailable | + + + Support + + +---------+ + | Name | Relationship | Address | Phone | + + +---------+ + | Royce Menchaca | ECON | Unknown | | + + +---------+ + Care Team Providers + +------+ + | Care Air Analysis Engineering Technician Name | Role | Phone | [...] 2016 | Encounter | at [facility] [address] | [address] | test results | | | | Abbe Soto Mailcode: | [facility] [address], | | | | | [address] | [place] [address] | | | | | Health and Healing, | [phone] | | | | | [place] [address] [facility] | | | | | | floor [place], [place] | | | | | | [address] | | | | | | [phone] | | | +--------+ + + + [...]
--- OUTSIDE RECORDS SUMMARY | ~2019-09-24 | XMS | Encounter Summary ---
Demographics + + + | Address | [address] | | | [place] [address] | + + + | Home Phone [...] Team Providers + +------+ + | Care Padder Cushion Name | Role | Phone | + +------+ + | Oxana Nye | PCP | | + +------+ + Encounter Details +--------+------+ + + + | Date | Type | Department | Care Team | Description | +--------+------+ + + + | 03/09/ | Lab | Laboratory at [facility] | | Chest pain, | | 2015 | | [address] | | unspecified type | | | | [place], [place] | | | | | | [address] | | | | | | [phone] | | | +--------+------+ + + + [...] NON-HDL | 54 | <=130 mg/dL | [facility] | | | CHOLESTEROL | [...] | + + + + + | [facility] | [address] | [place], [place] | | | | [address] | [address] | | + + + + + documented in this encounter Visit Diagnoses + + | Diagnosis | + + | Chest pain, unspecified type | + + documented in this encounter"
--- OUTSIDE RECORDS SUMMARY | ~2019-09-24 | XMS | Encounter Summary ---
Demographics + + + | Address | [address] | | | [place] [address] | + + + | Home Phone [...] Providers + +------+ + | Care School Teacher Name | Role | Phone | [...] Provider Unknown | | | | | [place], [place] | | | | | | [address] | (Fax) | | | | | [phone] | | | +--------+ + + + [...] [place] | | | | | | [id number] | | | | | | | [...]
--- OUTSIDE RECORDS SUMMARY | ~2019-09-24 | XMS | Encounter Summary ---
Demographics + + + | Address | [address] | | | [place] [address] | + + + | Home Phone [...] Team Providers + +------+ + | Care Telegraph Messenger Name | Role | Phone | + [...] + + | 04/10/ | Telephone | [facility] | Nick [place], | Medication Prior | | 2017 | | PHYSIATRY [address] | PA-C [address] | Authorization | | | | [place], | [address] [place] | (Lidocaine Patch ) | | | | [place] [address] | [place] [address] | | | | | [phone] | [phone] | | | | | | | [...] [place] | | | | | | [address] | | | | | | | | +--------+---------+ + + + documented as of this encounter Visit Diagnoses Not on filedocumented in this encounter"
--- OUTSIDE RECORDS SUMMARY | ~2019-09-24 | XMS | Encounter Summary ---
Demographics + + + | Address | [address] | | | [place] [address] | + + + | Home Phone [...] Providers + +------+ + | Care Fisheries Technical Officer Name | Role | Phone | [...] + + | 08/16/ | Office | [facility] | Gabi Guzman | S/P insertion of | | 2019 | Visit | [facility] | [address] | spinal cord | | | | ORTHOPEDIC SPINE | [address] | stimulator (Primary | | | | [address] | [place] [address] | Dx); DDD | | | | B [place], [place] | [phone] | (degenerative disc | | | | [address] | | disease), lumbar; | | | | [phone] | | Facet arthritis of | | [...] accompanied by her friend, and the [employer] international account representative for the spinal cord stimulator, f [...] non-medical: Not on file Occupational History Occupation: [employer] Tobacco Use Smoking status: Never Smoker Smokeless [...] Procedure: KYPHOPLASTY; Surgeon: Alfredo Casillas DO; Location: [facility]; Service: Pa in Management; Laterality: N/A; L5 FRACTURE SURGERY ANKLE HERNIA REPAIR HYSTERECTOMY HYSTERECTOMY LAMINECTOMY N/A 08/03/2019 Procedure: LAMINOTOMY THORACIC / LUMBAR W/ PLACEMENT SPINAL CORD STIMULATOR; Surgeon: Suly Hutchins MD; Location: [facility] MA[facility] OR OTHER SURGICAL HISTORY EPIDURAL STEROID [...] Cancer ([facility]) 2005 breast Cataract Cerebrovascular accident (CVA) ([facility] [place]) diet controlled Diabetes type 2, controlled (HCC) [...] [place] | | | | | | [address] | | | | | | | [...]
--- OUTSIDE RECORDS SUMMARY | ~2019-09-24 | XMS | Encounter Summary ---
Demographics + + + | Address | [address] | | | [place] [address] | + + + | Home Phone [...] Providers + +------+ + | Care Data Warehouse Consultant Name | Role | Phone | [...] + + | 07/20/ | Telephone | [facility] | Maykel Hutchins MD | Procedure (Question) | | 2019 | | [facility] | [address] | | | | | ORTHOPEDIC SPINE | HAYLEY SANCHEZ | | | | | [address] [place] | [place] [address] | | | | | [place] | [phone] | | | | | [address] | | | | | | [phone] | | | +--------+ + + + [...] [place] | | | | | | [address] | | | | | | | | +--------+---------+ + + + documented as of this encounter Visit Diagnoses Not on filedocumented in this encounter"
--- OUTSIDE RECORDS SUMMARY | ~2019-09-24 | XMS | Encounter Summary ---
Demographics + + + | Address | [address] | | | [place] [address] | + + + | Home Phone [...] Team Providers + +------+ + | Care Carbon Brush Maker Name | Role | Phone | [...] | | [address] | [place] [address] | (Primary Dx); DISC | | | | [place], [place] | [phone] | DISEASE, LUMBAR; | | | | [address] | | Back pain, | | | | [phone] | | unspecified back | | | [...] [place] | | | | | | [address] | | | | | | | [...]
--- OUTSIDE RECORDS SUMMARY | ~2019-09-24 | XMS | Encounter Summary ---
Demographics + + + | Address | [address] | | | [place] [address] | + + + | Home Phone [...] Team Providers + +------+ + | Care Early Childhood Teacher Assistant Name | Role | Phone | [...] 2013 | | PHYSIATRY [address] | CONTROLS DESIGNER | (Primary Dx) | | | | [place], | | | | | | [place] [address] | | | | | | [phone] | | | +--------+ + + + [...] | | | | | DRIVE [place] | | | | | | [address] | | | | | | | [...] radiculopathy ICD-9 Code 724.4 Ms. Sheikh | [facility] | | Joanne presents to the fluoroscopy suite for a [facility] | | fluoroscopically-guided left L5-S1 [...] [address] | [place] | [phone] | | [facility] | | [address] | | | - IMAGING | | | | + + + + + documented in this encounter Visit Diagnoses + + | Diagnosis | + + | Lumbar radiculopathy - Primary Thoracic or lumbosacral neuritis or radiculitis, | | unspecified | + + documented in this encounter"
--- OUTSIDE RECORDS SUMMARY | ~2019-09-24 | XMS | Encounter Summary ---
Demographics + + + | Address | [address] | | | [place] [address] | + + + | Home Phone [...] Providers + +------+ + | Care Glue Drier Operator Name | Role | Phone | [...] + + | 08/31/ | Telephone | [facility] | Denys Sibley, | Back Pain (Severe | | 2019 | | [facility]ENTER | DO [address] | pain) | | | | [address]OLOGY [address] | [address] [place], [place] | | | | | [address] | [address] | | | | | [place], [place] | | | | | | [address] | | | | | | [phone] | | | +--------+ + + + [...] [place] | | | | | | [address] | | | | | | | | +--------+---------+ + + + documented as of this encounter Visit Diagnoses Not on filedocumented in this encounter"
--- OUTSIDE RECORDS SUMMARY | ~2019-09-24 | XMS | Encounter Summary ---
Demographics + + + | Address | [address] | | | [place] [address] | + + + | Home Phone [...] Team Providers + +------+ + | Care Frame Wirer Name | Role | Phone | + +------+ + | Concepción Gallardo NP | PCP | | + +------+ + Encounter Details +--------+ + + + + | Date | Type | Department | Care Team | Description | +--------+ + + + + | 11/26/ | Hospital | [facility] | Conversion | Peripheral vertigo, | | 2016 | Encounter | [facility] MRI [address] | Transaction, | unspecified | | | | [address] | Provider Unknown | laterality; | | | | [place], [place] | | Post-concussion | | | | [address] | (Fax) | vertigo | | | | [phone] | | | +--------+ + + + [...] Note by Rosy Bautista RN at 11/26/15 2926 Author: Rosy Bautista RN Service: (none) Author Type: Registered Nurse Filed: 11/26/15 4756 Date of Service: 11/26/15 5215 Status: Signed Video Game Engineer: Rosy Bautista RN (Registered Nurse) Responded to [...] [place] | | | | | | [id number] | | | | | | | [...] | | | Fingerstick | performed at [facility];[address] | | LAB | | | | Rosenda Donnelly;[place], [place] | | | | | | [address] | | | | + + + [...]
--- OUTSIDE RECORDS SUMMARY | ~2019-09-24 | XMS | Encounter Summary ---
Demographics + + + | Address | [address] | | | [place] [address] | + + + | Home Phone [...] Team Providers + +------+ + | Care Caser Shoe Parts Name | Role | Phone | + [...] 2019 | | NEUROSCIENCE CENTER | [address] | [facility] | | | | ORTHOPEDIC SPINE | [place] SANC[place]Z, | Healthcare Orders) | | | | [address] [place] | [place] [address] | | | | | [place] | [phone] | | | | | [address] | | | | | | [phone] | | | +--------+ + + + [...] [place] | | | | | | [address] | | | | | | | | +--------+---------+ + + + documented as of this encounter Visit Diagnoses Not on filedocumented in this encounter"
--- OUTSIDE RECORDS SUMMARY | ~2019-09-24 | XMS | Encounter Summary ---
Demographics + + + | Address | [address] | | | [place] [address] | + + + | Home Phone [...] Providers + +------+ + | Care Senior Tax Analyst Name | Role | Phone | + +------+ + | Miquel Calhoun MD | PCP | | + +------+ + Encounter Details +--------+ + + + + | Date | Type | Department | Care Team | Description | +--------+ + + + + | 09/13/ | Telephone | [facility] | Khushbu Cortez, | | | 2012 | | [facility] | BALANCE SHEET ANALYST [place], [place] | | | | | [address] | [address] | | | | | [address] | | | | | | Aravind Hannon | | | | | | [place], [place] | | | | | | [address] | | | | | | [phone] | | | +--------+ + + + [...]
--- OUTSIDE RECORDS SUMMARY | ~2019-09-24 | XMS | Encounter Summary ---
Demographics + + + | Address | [address] | | | [place] [address] | + + + | Home Phone [...] Team Providers + +------+ + | Care Wet Sander Name | Role | Phone | + [...] + + | 07/24/ | Telephone | [facility] | Maykel Hutchins MD | Pre-op Question | | 2019 | | NEUROSCIENCE CENTER | [address] | | | | | ORTHOPEDIC SPINE | [place]Z | | | | | [address] [place] | [place] [address] | | | | | [place] | [phone] | | | | | [address] | | | | | | [phone] | | | +--------+ + + + [...] [place] | | | | | | [address] | | | | | | | | +--------+---------+ + + + documented as of this encounter Visit Diagnoses Not on filedocumented in this encounter"
--- OUTSIDE RECORDS SUMMARY | ~2019-09-24 | XMS | Clinical Summary ---
Demographics + + + | Address | [address] | | | [place] [address] | + + + | Home Phone [...] Providers + +------+ + | Care Director Skills Name | Role | Phone | + +------+ + | Oxana Nye | PCP | | + +------+ + Source Comments RADHA is fully live on both [facility] and [facility] InPatient.[facility] Allergies + + + + [...] MEDICARE | MEDICA | xxxxxxxxxx | | [phone] | [address] | Medica | | | RE A & | | [phone] | [address] | [phone] | [address] | | | B | | esent | | [place] | | | | | | | | [address] | | + +--------+ +--------+ + +--------+ | [employer] | AARP | xxxxxxxxxx | 07/01/20 | [phone] | [address] | Indemn | | RETIRED PEOPLE | | | 12-Pre | 9 | [id number] | ity | | | | | sent | | [place] | | | | | | | | [address] | | + +--------+ +--------+ + +--------+ [...] jose | | | 8 (Home) | [address] | + +--------+ +--------+ + +
--- OUTSIDE RECORDS SUMMARY | ~2019-09-24 | XMS | Encounter Summary ---
Demographics + + + | Address | [address] | | | [place] [address] | + + + | Home Phone | | + + + | Preferred Language | Unknown | + + + | Marital Status | Single | + + + | Mandaeism Affiliation | NON | + + + [...] + +------+ + | Care Human Resources Services Specialist Name | Role | Phone | [...] | | 2016 | Encounter | at [facility] [address] | [address] | [place] | | | | [place] Mailcode: | [facility] [address] [facility] | | | | | [address] | [place] [address] | | | | | Health and Healing, | [phone] | | | | | [place] [address] [facility] | | | | | | floor [place], [place] | | | | | | [address] | | | | | | [phone] | | | +--------+ + + + [...]
--- OUTSIDE RECORDS SUMMARY | ~2019-09-24 | XMS | Encounter Summary ---
Demographics + + + | Address | [address] | | | [place] [address] | + + + | Home Phone [...] Team Providers + +------+ + | Care Teacher'S Assistant Name | Role | Phone | [...] | 2016 | | at [facility] [address] | [address] | new pt appt) | | | | [place] Mailcode: | [address] [facility] | | | | | [address] | [place] [address] | | | | | Health and Healing, | [phone] | | | | | [facility] | | | | | | floor [place], [place] | | | | | | [address] | | | | | | [phone] | | | +--------+ + + + [...]
--- OUTSIDE RECORDS SUMMARY | ~2019-09-24 | XMS | Encounter Summary ---
Demographics + + + | Address | [address] | | | [place] [address] | + + + | Home Phone [...] Team Providers + +------+ + | Care Stave Planer Tender Name | Role | Phone | + +------+ + | Oxana Nye | PCP | | + +------+ + Encounter Details +--------+ + + + + | Date | Type | Department | Care Team | Description | +--------+ + + + + | 07/06/ | Hospital | [facility] | [place], | 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 | MED CTR XRAY [address] | [address] | lumbar region | | | | [place] | [place], | without myelopathy | | | | [place] [address] | [place] [address] | or radiculopathy | | | | [phone] | [phone] | (Primary Dx); | | | | | | Chronic right-sided | | | | | Area Director, [facility] | low back pain with | [...] [place] | | | | | | [address] | | | | | | | [...] Diagnosis: Lumbar Spondylosis ICD-10 Code M47.816 Kori [facility] | | Joanne presents to the fluoroscopy suite for | [facility] | | fluoroscopically-guided bilateral L5-S1 [...] ST. | [address] | [place] | [phone] | | [facility] | | [address] | | | - IMAGING | | [...] | | | | | Other, ONCE, [facility] 07/06/16 at 1115, | | AM PDT | | | | | For 1 dose, Radiology | | | | | | + +--------+ +-------+------+------+ +---+---+ | | | +---+---+ + +-------+ +------+---+---+ | lidocaine 1% injection 1 mL 1 | Given | 07/06/20 | 1 mL | | | | mL, Other, ONCE, [facility] 07/06/16 at | | 16 11:03 [...]
--- OUTSIDE RECORDS SUMMARY | ~2019-09-24 | XMS | Encounter Summary ---
Demographics + + + | Address | [address] | | | [place] [address] | + + + | Home Phone [...] Team Providers + +------+ + | Care Slip Bridge Operator Name | Role | Phone | + +------+ + | Wendi Aiken | PCP | | + +------+ + Encounter Details +--------+ + + + + | Date | Type | Department | Care Team | Description | +--------+ + + + + | 12/28/ | Hospital | [facility] | Conversion | Diagnosis unknown | | 2018 | Encounter | CONVERSION [address] | Transaction, | | | | | [address] | Provider Unknown | | | | | [place], [place] | [phone] | | | | | [address] | | | | | | [phone] | | | +--------+ + + + [...] [place] | | | | | | [address] | | | | | | | [...]
--- OUTSIDE RECORDS SUMMARY | ~2019-09-24 | XMS | Encounter Summary ---
Demographics + + + | Address | [address] | | | [place] [address] | + + + | Home Phone [...] Providers + +------+ + | Care Retail Sales Representative Name | Role | Phone [...] | [address] | [place], [address] | | | | | [address] [place], [place] | [place], [place] | | | | | [address] | [address] | | | | | [phone] | | | +--------+ + + + [...] [place] | | | | | | [address] | | | | | | | | +--------+---------+ + + + documented as of this encounter Visit Diagnoses Not on filedocumented in this encounter"
--- OUTSIDE RECORDS SUMMARY | ~2019-09-24 | XMS | Encounter Summary ---
Demographics + + + | Address | [address] | | | [place] [address] | + + + | Home Phone [...] Team Providers + +------+ + | Care Bronze Plater Name | Role | Phone | + +------+ + | No, Physician | PCP | Unavailable | + +------+ + Encounter Details +--------+ + + + + | Date | Type | Department | Care Team | Description | +--------+ + + + + | 01/03/ | [facility] | [facility] | Shay Dietz | | | 2013 | Encounter | MED CTR XRAY [address] | T, [address] | | | | | [place] | [place] | | | | | [place] [address] | [address] | | | | | [phone] | | | +--------+ + + + [...] [place] | | | | | | [address] | | | | | | | | +--------+---------+ + + + documented as of this encounter Visit Diagnoses Not on filedocumented in this encounter"
--- OUTSIDE RECORDS SUMMARY | ~2019-09-24 | XMS | Encounter Summary ---
Demographics + + + | Address | [address] | | | [place] [address] | + + + | Home Phone [...] Team Providers + +------+ + | Care Lamp Shades Supervisor Name | Role | Phone | [...] | | [address] [place] | [place] [address] | | | | | [place] | [phone] | | | | | [address] | | | | | | [phone] | | | +--------+ + + + [...] [place] | | | | | | [address] | | | | | | | | +--------+---------+ + + + documented as of this encounter Visit Diagnoses Not on filedocumented in this encounter"
--- OUTSIDE RECORDS SUMMARY | ~2019-09-24 | XMS | Encounter Summary ---
[...] Team Providers + +------+ + | Care Tip Mender Name | Role | Phone | + +------+ + PCP | Unavailable | + +------+ + Encounter Details +--------+ + + + + | Date | Type | Department | Care Team | Description | +--------+ + + + + | 10/31/ | Hospital | [facility] | | | | 1999 - | Encounter | MED CTR CANCER | | | | | | [place] | | | | 03/16/ | | [place], [place] | | | | 2000 | | [address] | | | | | | [phone] | | | +--------+ + + + [...] [place] | | | | | | [address] | | | | | | | | +--------+---------+ + + + documented as of this encounter Visit Diagnoses Not on filedocumented in this encounter"
--- OUTSIDE RECORDS SUMMARY | ~2019-09-24 | XMS | Encounter Summary ---
Demographics + + + | Address | [address] | | | [place] [address] | + + + | Home Phone | | + + + | Preferred Language | Unknown | + + + | Marital Status | Single | + + + | Buddhism Affiliation | NON | + + + [...] Providers + +------+ + | Care Medical Dosimetrist Name | Role | Phone | + [...] | | 2016 | Encounter | at [facility] [address] | [address] [address] [facility] | | | | | [place] Mailcode: | [facility] [address], | | | | | [address] | [place] [address] | | | | | Health and Healing, | [phone] | | | | | [facility] | | | | | | floor [place], [place] | | | | | | [address] | | | | | | [phone] | | | +--------+ + + + [...]
--- OUTSIDE RECORDS SUMMARY | ~2019-09-24 | XMS | Encounter Summary ---
Demographics + + + | Address | [address] | | | [place] [address] | + + + | Home Phone [...] Providers + +------+ + | Care Medical Records Secretary Name | Role | Phone | [...] | | | stenosis | B | [address] | | | | | | [place], [place] | Phone: | | | | | | [address] | [phone] | | | | | | Phone: | Fax: | | | | | | [phone] | [phone] | | | | | | Fax: | | | | | | | [phone] | | + +--------+ + + + + Encounter Details +--------+---------+ + + + | Date | Type | Department | Care Team | Description | +--------+---------+ + + + | 06/18/ | Office | [facility] | Deyns Sibley, | SACROILIITIS | | 2018 | Visit | [facility] | DO [address] | (Primary Dx); | | | | DOLOROLOGY [address] [place] | Spondylosis of | | | | [address] [place] | [address] | lumbar region | | | | [place], [place] | | without myelopathy | | | | [address] | | or radiculopathy; | | | | [phone] | | BACK PAIN, LUMBAR; | | [...] | | | | | | pain; group home | | | | | | [...] the other nostri l. Talk to your inventory worker regarding the use of this medicine in children. While this drug m ay be prescribed for children as young as newborns for selected conditions, precautions do a pply. What side effects may I notice from receiving this medicine? Side effects that you should report to your doctor or health manager home healthcare as soon as p ossible: allergic reactions like skin rash, itching or hives, swelling of the face, lips, or tong ue breathing problems fast, irregular heartbeat high blood pressure pain that was controlled by narcotic pain medicine seizures Side effects that usually do not require medical attention (report to your doctor or health manager home healthcare if they continue or are bothersome): anxious [...] phone number of your doctor or health manager home healthcare and local hospital ready. You may need to have additional doses of this medicine. Each nasal spray contains a single dose. Some emergencies may require additional doses. After use, bring the treated person to the nearest hospital or call 911. Make sure the [facility] health manager home healthcare knows that the person has received an [...] after bladder repair Arthralgia Asthma Asthma Cancer ([facility]) 2004 breast Cerebrovascular accident (CVA) ([facility]) no per [...] to physical therapy, mass age therapy, acupuncture, home health care physician, along with recommended psychological counseling , either privately, or in group sessions offered by private care individuals, community serv ices, or mormonism organizations. Appropriate referrals were made at patient and/or provider request Narcan was prescribed, when appropriate, and patient instructed in its use for emergency on ly. Patient was given instructions on proper storage and disposal of medications including but not limited to current government regulations regarding this and or current official [facility] approved disposal sites. Continue current medication regime with these changes and/ or additions :refill her fenta nyl patch 25 by grams applied to the anterior chest wall q72 hours, and Norco7.5/325 one po q6 hours prn pain Patient understands and is in full agreement with the above plan, Will return to office in 4 weeks, [facility] was consulted and appears appropriate, Urine [...] dysfunction are noted in men and women. [facility] men will suffer erectile dysfunction with [...] [place] | | | | | | [address] | | | | | | | | +--------+---------+ + + + + +------+--------+ + + | Name | Type | Priori | Associated Diagnoses | Order Schedule | | | | ty | | | + +------+--------+ + + | Drugs of Abuse, | Lab | Routin | group home current | Expected: | | Panel, [...] pain Backache, unspecified | + + | termination clerk current use of opiate analgesic Encounter for long-term (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 of | | other medications | + + documented in this encounter
--- OUTSIDE RECORDS SUMMARY | ~2019-09-24 | XMS | Encounter Summary ---
Demographics + + + | Address | [address] | | | [place] [address] | + + + | Home Phone [...] Providers + +------+ + | Care Senior Living Sales Counselor Name | Role | Phone | [...] | Pain | Diagnoses | Cr, | Wet Mixer Chh1 | | | | Management | PPS (pelvic | MD Britta | [address] | | | | | pain | [address] | | | | | syndrome) | [facility] | Mailcode: | | | | | Procedures | Rd | [facility] | | | | | CONSULT TO | [facility] [place] | for Health | | | | | PAIN CENTER | [address] | and Healing, | | | | | | Phone: | Building | | | | | | [phone] | 1,[address]th Floor | | | | | | Fax: | [place], [place] | | | | | | [phone] | [address] | | | | | | | Phone: | | | | | | | [phone] | | | | | | | Fax: | | | | | | | [phone] | +--------+--------+ + + + + Reason [...] | | | | | symptom | [place] | [address] | | | | | associated | [place] | Juliana [place] | | | | | with female | Urology [address] [place] | | | | | genital | [address] | [address] | | | | | organs | [address] [place], | [place], [place] | | | | | Unspecified | [place] [address] | [address] | | | | | urinary | Phone: | Phone: | | | | | incontinence | [phone] | [phone] | | | | | | Fax: | Fax: | | | | | | [phone] | [phone] | +--------+--------+ + + + + Encounter Details +--------+---------+ + + + | Date | Type | Department | Care Team | Description | +--------+---------+ + + + | 11/29/ | Office | [facility] | Britta Hankins MD | PPS (pelvic pain | | 2014 | Visit | [facility] [place] | [address] | syndrome) (Primary | | | | [address] | [address] [place], | Dx); Depression with | | | | [address] | [place] [address] | suicidal ideation; | | | | Aravind [place]annon | [phone] | Recurrent UTI; | | | | [place], [place] | | Hypoestrogenism | | | | [address] | | | | | | [phone] | | | +--------+---------+ + + + [...] 4. Referral to pain service here at [facility] 5. Let me know if [...] (2 vag, 1 cs, she had to [facility] hospitalized after her second delivery for infection) seen at the request of Dr. Ck wan r pelvic pain and LUTs following pelvic reconstructive surgery. She is accompanied by her so sadiq Ball. He lives here in [place] so he is not fully aware of her recent health issues but h e did help in providing some of his mother's past history. 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 [place], she was hospitalized at [facility] in 2005 for a Vicodin [...] speaker, a good grandmother". Her physicians in [place] and elsewhere will not pre scribe pain [...] until she was able to leave her [employer] house at age 20. Her aunt recently [...] estrogenization of the vulvova ginal tissues; negative BOXING AND PRESSING SUPERVISOR; no hypospadias of the urethra; + tenderness [...] F/U with Dr. Stover on return to [place]. I am Christine Monterroso functioning as a scribe for Dr. Britta Hankins. Christine Monterroso [facility] [address] [facility] [address] [place] [facility] [place] [address] I have reviewed, verified, and amended the [...] for afternoon appointments. Britta Hankins M.D., FACS Remote Sensing Surveyor [facility] documented in this encoun ter [...]
--- OUTSIDE RECORDS SUMMARY | ~2019-09-24 | XMS | Encounter Summary ---
Demographics + + + | Address | [address] | | | [place] [address] | + + + | Home Phone [...] Providers + +------+ + | Care Lead Programmer Analyst Name | Role | Phone | + +------+ + | Miquel Calhoun MD | PCP | | + +------+ + Encounter Details +--------+ + + + + | Date | Type | Department | Care Team | Description | +--------+ + + + + | 05/01/ | Hospital | [facility] | Shay Dietz | | | 2012 | Encounter | MED CTR XRAY [address] | T, [address] | | | | | [place] | [facility] [place], [place] | | | | | [place] [address] | [address] | | | | | [phone] | | | +--------+ + + + [...] [place] | | | | | | [address] | | | | | | | [...] Performed At | + + + | [facility] | OSCAR | | Department [address] [facility] | [facility] | | [ rep [facility]] [ rep [facility] | | [facility]] Signed | - IMAGING | | | | | Patient Name: WAYNEKORI PARIS | | | Physician: OMID : [id number] Age: 67 Sex: F Unit | | | #: [id number] Exam Date: 05/01/13 Location: | | | IMG.INV Report #: [id number] Page: | | | %(RAD)RES..mtdd.print.filter("pg") of %(RAD) | | | RES..mtdd.print.filter("tpg") | | | | | | Accession Number: [id number] | | | PROCEDURE NOTE LUMBAR FACET [...] Transcribed | | | Date/Time: 05/09/2013 18:53 Compensator Worker: | | | <<Signature on File>> | | | Shay Mukherjee | | | MD J [id number] <Electronically signed by Shay Mukherjee | | | J Luis [place]> Shay Dietz MD 05/09/131812 | | | Compensator Worker: Yudelka [id number] | | | | | + + + + + + + + | Performing | Address | City/State/Zipcode | Phone Number | | Organization | | | | + + + + + | [facility] | [address] | [place] | [phone] | | [facility] | | [address] | | | - IMAGING | | | | + + + + + documented in this encounter Visit Diagnoses Not on filedocumented in this encounter
--- OUTSIDE RECORDS SUMMARY | ~2019-09-24 | XMS | Encounter Summary ---
Demographics + + + | Address | [address] | | | [place] [address] | + + + | Home Phone [...] Providers + +------+ + | Care Die Designer Apprentice Name | Role | Phone | [...] + + | 07/20/ | Telephone | [facility] | Maykel Hutchins MD | Procedure (Question) | | 2019 | | [facility] | [address] | | | | | ORTHOPEDIC SPINE | [place] | | | | | [address] [place] | [place] [address] | | | | | [place] | [phone] | | | | | [address] | | | | | | [phone] | | | +--------+ + + + [...] [place] | | | | | | [address] | | | | | | | | +--------+---------+ + + + documented as of this encounter Visit Diagnoses Not on filedocumented in this encounter"
--- OUTSIDE RECORDS SUMMARY | ~2019-09-24 | XMS | Encounter Summary ---
Demographics + + + | Address | [address] | | | [place] [address] | + + + | Home Phone [...] Team Providers + +------+ + | Care Cyber Security Manager Name | Role | Phone | + +------+ + | Wendi Aiken | PCP | | + +------+ + Encounter Details +--------+ + + + + | Date | Type | Department | Care Team | Description | +--------+ + + + + | 04/07/ | Imaging | [facility] | Provider, | | | 2018 | Exam | MED CTR EXTERNAL | [address] | | | | | IMAGING | Vasquez [place]DEZ | | | | | [phone] | [place] [address] | | +--------+ + + + + [...] | | | [address] [place] | | | | | | [id number] | | | | | | | [...]
--- OUTSIDE RECORDS SUMMARY | ~2019-09-24 | XMS | Encounter Summary ---
Demographics + + + | Address | [address] | | | [place] [address] | + + + | Home Phone [...] Team Providers + +------+ + | Care Crystallographer Name | Role | Phone | + +------+ + | Miquel Calhoun MD | PCP | | + +------+ + Encounter Details +--------+ + + + + | Date | Type | Department | Care Team | Description | +--------+ + + + + | 09/18/ | Hospital | [facility] | Shay Dietz | | | 2012 | Encounter | MED CTR XRAY [address] | [address], [address] | | | | | [place] | [place], [place] | | | | | [place] [address] | [address] | | | | | [phone] | | | +--------+ + + + [...] [place] | | | | | | [address] | | | | | | | | +--------+---------+ + + + documented as of this encounter Visit Diagnoses Not on filedocumented in this encounter"
--- OUTSIDE RECORDS SUMMARY | ~2019-09-24 | XMS | Encounter Summary ---
Demographics + + + | Address | [address] | | | [place] [address] | + + + | Home Phone [...] Author | [facility] | + + + | Organization | [facility] | + + + | Address | Unknown | + + + | Phone | Unavailable | + + + Support + + +---------+ + | Name | Relationship | Address | Phone | + + +---------+ + | Royce Menchaca | ECON | Unknown | | + + +---------+ + Care Team Providers + +------+ + | Care Doll Wig Maker Rooted Hair Name | Role | Phone | + [...] 2016 | Encounter | at [facility] [address] | [address] | medical records from | | | | Abbe Soto Mailcode: | [address] [place], | [facility] in | | | | [facility] for | [place] [address] | [facility] | | | | [facility], | [phone] | in [facility] | | | | [facility] | | Ant | | | | floor [place], [place] | | | | | | [address] | | | | | | [phone] | | | +--------+ + + + [...]
--- OUTSIDE RECORDS SUMMARY | ~2019-09-24 | XMS | Encounter Summary ---
Demographics + + + | Address | [address] | | | [place] [address] | + + + | Home Phone [...] Team Providers + +------+ + | Care Income Tax Auditor Name | Role | Phone | + +------+ + | Wendi Aiken | PCP | | + +------+ + Encounter Details +--------+ + + + + | Date | Type | Department | Care Team | Description | +--------+ + + + + | 12/28/ | Hospital | [facility] | Conversion | Diagnosis unknown | | 2018 | Encounter | CONVERSION DE[address] | Transaction, | | | | | [address] | Provider Unknown | | | | | [place], [place] | [phone] | | | | | [address] | | | | | | [phone] | | | +--------+ + + + [...] [place] | | | | | | [address] | | | | | | | [...]
--- OUTSIDE RECORDS SUMMARY | ~2019-09-24 | XMS | Encounter Summary ---
Demographics + + + | Address | [address] | | | [place] [address] | + + + | Home Phone [...] Team Providers + +------+ + | Care County Supervisor Name | Role | Phone | [...] | | | | EMERGENCY CENTER | [place] [address] | convulsion type | | | | [address] | [phone] | ([facility]); Generalized | | | | [place], [place] | | weakness | | | | [address] | | | | | | [phone] | | | +--------+ + + + [...] [place] | | | | | | [address] | | | | | | | [...] | | LAB | | | | [facility];[address] | | | [address];[place] [address] | | | | + + + + + + | Clarity | CLEARComment: Testing | | EXTERNAL | | | | performed at [facility];[address] | | LAB | | | | [address];[place] | | | | | | [address] | | | | + + + + + + | Specific | 1.008Comment: Testing | 1.002 - 1.030 | EXTERNAL | | | Goodman | performed at [facility];[address] | | LAB | | | | [address];[place] | | | | | | [address] | | | | + + + + + + | Leukocyte | NEGATIVEComment: Testing | | EXTERNAL | | | Esterase, | performed at [facility];[address] | | LAB | | | Urine | [address];[place] | | | | | | [address] | | | | + + + + + + | Nitrite, | NEGATIVEComment: Testing | | EXTERNAL | | | Urine | performed at [facility];[address] | | LAB | | | | [address];[place] | | | | | | [address] | | | | + + + + + + | Urobilinoge | NORMALComment: Testing | mg/dL | EXTERNAL | | | n, Urine | performed at [facility];[address] | | LAB | | | | [address];[place] | | | | | | [address] | | | | + + + + + + | Protein, | NEGATIVEComment: Testing | mg/dL | EXTERNAL | | | Urine | performed at [facility];[address] | | LAB | | | | [address];[place] | | | | | | [address] | | | | + + + + + + | pH, Urine | 5.0Comment: Testing | 5.0 - 8.0 | EXTERNAL | | | | performed at [facility];[address] | | LAB | | | | [address];[place] | | | | | | [address] | | | | + + + + + + | Blood, | NEGATIVEComment: Testing | | EXTERNAL | | | Urine | performed at [facility];[address] | | LAB | | | | [address];[place] | | | | | | [address] | | | | + + + + + + | Ketones | NEGATIVEComment: Testing | mg/dL | EXTERNAL | | | | performed at [facility];[address] | | LAB | | | | [address];[place] | | | | | | [address] | | | | + + + + + + | Bilirubin, | NEGATIVEComment: Testing | | EXTERNAL | | | Urine | performed at [facility];[address] | | LAB | | | | [address];[place] | | | | | | [address] | | | | + + + + + + | Glucose, | NEGATIVEComment: Testing | mg/dL | EXTERNAL | | | Urine | performed at [facility];[address] | | LAB | | | | [address];[place] | | | | | | [address] | | | | + + + [...] EXTERNAL | | | | performed at [facility];[address] | K/uL | LAB | | | | [address];[place], [place] | | | | | | [address] | | | | + + + + + -+ | RED CELL | 4.61Comment: Testing | 3.70 - 5.10 | EXTERNAL | | | COUNT | performed at [facility];[address] | M/uL | LAB | | | | [address];[place] | | | | | | [address] | | | | + + + + + -+ | Hgb | 13.4Comment: Testing | 11.3 - 15.5 | EXTERNAL | | | | performed at [facility];888 | g/dL | LAB | | | | [address];[place] | | | | | | [address] | | | | + + + + + -+ | Hematocrit, | 40.4Comment: Testing | 34.0 - 46.0 % | EXTERNAL | | | POC | performed at [facility];[address] | | LAB | | | | [address];[place] | | | | | | [address] | | | | + + + + + -+ | MCV | 87.7Comment: Testing | 80.0 - 100.0 fl | EXTERNAL | | | | performed at [facility];[address] | | LAB | | | | [address];[place] | | | | | | [address] | | | | + + + + + -+ | MCH | 29.1Comment: Testing | 27.0 - 34.0 pg | EXTERNAL | | | | performed at [facility];[address] | | LAB | | | | [address];[place] | | | | | | [address] | | | | + + + + + -+ | MCHC | 33.2Comment: Testing | 32.0 - 35.5 | EXTERNAL | | | | performed at [facility];888 | g/dL | LAB | | | | [address];[place] | | | | | | [address] | | | | + + + + + -+ | RDW-CV | 39.8Comment: Testing | 37 - 53 fl | EXTERNAL | | | | performed at [facility];[address] | | LAB | | | | [address];[place] | | | | | | [address] | | | | + + + + + -+ | Platelet | 287Comment: Testing | 150 - 400 K/uL | EXTERNAL | | | Count | performed at [facility];[address] | | LAB | | | Plasma | [address];[place] | | | | | | [address] | | | | + + + + + -+ | MPV | 7.7Comment: Testing | fl | EXTERNAL | | | | performed at [facility];[address] | | LAB | | | | [address];[place] | | | | | | [address] | | | | + + + + + -+ | Differentia | AUTOMATEDComment: | | EXTERNAL | | | l Type | Testing performed at | | LAB | | | | [facility];[address];[place] [address] | | | | + + + + + -+ | % Segmented | 45.19Comment: Testing | % | EXTERNAL | | | | performed at [facility];[address] | | LAB | | | Neutrophils | [address];[place] | | | | | | [address] | | | | + + + + + -+ | % | 44.63Comment: Testing | % | EXTERNAL | | | Lymphocytes | performed at [facility];[address] | | LAB | | | | [address];[place] | | | | | | [address] | | | | + + + + + -+ | % Monocytes | 7.42Comment: Testing | % | EXTERNAL | | | | performed at [facility];[address] | | LAB | | | | [address];[place] | | | | | | [address] | | | | + + + + + -+ | % | 1.58Comment: Testing | % | EXTERNAL | | | Eosinophils | performed at [facility];[address] | | LAB | | | | [address];[place] | | | | | | [address] | | | | + + + + + -+ | % Basophils | 1.18Comment: Testing | % | EXTERNAL | | | | performed at [facility];[address] | | LAB | | | | [address];[place] | | | | | | [address] | | | | + + + + + -+ | Absolute | 3.08Comment: Testing | 1.90 - 7.40 | EXTERNAL | | | Segmented | performed at [facility];[address] | K/uL | LAB | | | Neutrophils | [address];[place] | | | | | | [address] | | | | + + + + + -+ | Absolute | 3.04Comment: Testing | 1.00 - 3.90 | EXTERNAL | | | Lymphocytes | performed at [facility];[address] | K/uL | LAB | | | | [address];[place] | | | | | | [address] | | | | + + + + + -+ | Absolute | 0.51Comment: Testing | 0.00 - 0.80 | EXTERNAL | | | Monocytes | performed at [facility];[address] | K/uL | LAB | | | | [address];[place] | | | | | | [address] | | | | + + + + + -+ | Absolute | 0.11Comment: Testing | 0.00 - 0.50 | EXTERNAL | | | Eosinophils | performed at [facility];[address] | K/uL | LAB | | | | [address];[place] | | | | | | [address] | | | | + + + + + -+ | Absolute | 0.08Comment: Testing | 0.00 - 0.10 | EXTERNAL | | | Basophils | performed at [facility];[address] | K/uL | LAB | | | | [address];[place] | | | | | | [address] | | | | + + + + + -+ | Na | 139Comment: Testing | 135 - 143 | EXTERNAL | | | | performed at [facility];[address] | mmol/L | LAB | | | | [address];[place] | | | | | | [address] | | | | + + + + + -+ | K | 4.1Comment: SLT | 3.5 - 4.9 | EXTERNAL | | | | HEMOLYSISTesting | mmol/L | LAB | | | | performed at [facility];[address] | | | | | | [address];[place] | | | | | | [address] | | | | + + + + + -+ | Cl | 106Comment: Testing | 99 - 109 mmol/L | EXTERNAL | | | | performed at [facility];[address] | | LAB | | | | [address];[place] | | | | | | [address] | | | | + + + + + -+ | CO2 | 28Comment: Testing | 23 - 32 mmol/L | EXTERNAL | | | | performed at [facility];[address] | | LAB | | | | [address];[place] | | | | | | [address] | | | | + + + + + -+ | Anion Gap | 9Comment: Testing | 5 - 20 mmol/L | EXTERNAL | | | | performed at [facility];[address] | | LAB | | | | [address];[place] | | | | | | [address] | | | | + + + + + -+ | Glucose, | 78Comment: Testing | 65 - 99 mg/dL | EXTERNAL | | | Fasting | performed at [facility];[address] | | LAB | | | | [address];[place] | | | | | | [address] | | | | + + + + + -+ | BUN | 16Comment: Testing | 8 - 25 mg/dL | EXTERNAL | | | | performed at [facility];[address] | | LAB | | | | [address];[place] | | | | | | [address] | | | | + + + + + -+ | Creatinine | 0.82Comment: Testing | 0.50 - 1.00 | EXTERNAL | | | | performed at [facility];888 | mg/dL | LAB | | | | [address];[place] | | | | | | [address] | | | | + + + + + -+ | BUN/Creatin | 20Comment: Testing | | EXTERNAL | | | ine Ratio | performed at [facility];[address] | | LAB | | | | [address];[place] | | | | | | [address] | | | | + + + + + -+ | Calcium | 8.3 (L)Comment: Testing | 8.5 - 10.5 | EXTERNAL | | | | performed at [facility];888 | mg/dL | LAB | | | | [address];[place] | | | | | | [address] | | | | + + + + + -+ | Protein, | 7.3Comment: Testing | 6.3 - 8.2 g/dL | EXTERNAL | | | Total | performed at [facility];[address] | | LAB | | | | [address];[place] | | | | | | [address] | | | | + + + + + -+ | Albumin | 3.7Comment: Testing | 3.3 - 4.8 g/dL | EXTERNAL | | | | performed at [facility];[address] | | LAB | | | | [address];[place] | | | | | | [address] | | | | + + + + + -+ | Globulin | 3.6Comment: Testing | 1.3 - 4.9 g/dL | EXTERNAL | | | | performed at [facility];[address] | | LAB | | | | [address];[place] | | | | | | [address] | | | | + + + + + -+ | A/G Ratio | 1.0Comment: Testing | 1.0 - 2.4 | EXTERNAL | | | | performed at [facility];[address] | | LAB | | | | [address];[place] | | | | | | [address] | | | | + + + + + -+ | Bilirubin | 0.2Comment: Testing | 0.1 - 1.5 mg/dL | EXTERNAL | | | Total | performed at [facility];[address] | | LAB | | | | [address];[place] | | | | | | [address] | | | | + + + + + -+ | ALP, | 69Comment: Testing | 35 - 115 U/L | EXTERNAL | | | External | performed at [facility];[address] | | LAB | | | | [address];[place] | | | | | | [address] | | | | + + + + + -+ | AST | 22Comment: SLT | 10 - 45 U/L | EXTERNAL | | | | HEMOLYSISTesting | | LAB | | | | performed at [facility];[address] | | | | | | [address];[place] | | | | | | [address] | | | | + + + + + -+ | ALT | 31Comment: Testing | 10 - 65 U/L | EXTERNAL | | | | performed at [facility];[address] | | LAB | | | | [address];[place] | | | | | | [address] | | | | + + + [...] | | | | | | at [facility];[address] | | | | [address];[place] [address] | | | | + + + + + -+ | CK, Total | 128Comment: Testing | 30 - 240 U/L | EXTERNAL | | | | performed at [facility];[address] | | LAB | | | | [address];[place] | | | | | | [address] | | | | + + + [...] | | | | | performed at [facility];[address] | | | | | | [address];[place] | | | | | | [address] | | | | + + + + + -+ | aPTT, | 27Comment: Testing | 23 - 32 seconds | EXTERNAL | | | Patient | performed at [facility];[address] | | LAB | | | | [address];[place] | | | | | | [address] | | | | + + + + + -+ | CK-MB | 3.2Comment: Testing | 0.5 - 3.6 ng/mL | EXTERNAL | | | | performed at [facility];[address] | | LAB | | | | [address];[place] | | | | | | [address] | | | | + + + [...] | | Fingerstick | performed at [facility];[address] | | LAB | | | | [address];[place] | | | | | | [address] | | | | + + + [...]
--- OUTSIDE RECORDS SUMMARY | ~2019-09-24 | XMS | Encounter Summary ---
Demographics + + + | Address | [address] | | | [place] [address] | + + + | Home Phone [...] Providers + +------+ + | Care Commercial Specialist Name | Role | Phone | [...] | | [address] [place] | [place] [address] | | | | | [place], [place] | [phone] | | | | | [address] | | | | | | [phone] | | | +--------+ + + + [...] [place] | | | | | | [address] | | | | | | | | +--------+---------+ + + + documented as of this encounter Visit Diagnoses Not on filedocumented in this encounter"
--- OUTSIDE RECORDS SUMMARY | ~2019-09-24 | XMS | Encounter Summary ---
Demographics + + + | Address | [address] | | | [place] [address] | + + + | Home Phone [...] Team Providers + +------+ + | Care Applications Support Specialist Name | Role | Phone | [...] [address] | | | | [place], | [address] [place], | | | | | [place] [address] | [place] [address] | | | | | [phone] | [phone] | | | | | | | [...] [place] | | | | | | [address] | | | | | | | | +--------+---------+ + + + documented as of this encounter Visit Diagnoses Not on filedocumented in this encounter"
--- OUTSIDE RECORDS SUMMARY | ~2019-09-24 | XMS | Encounter Summary ---
Demographics + + + | Address | [address] | | | [place] [address] | + + + | Home Phone [...] Team Providers + +------+ + | Care Pre Sales Technical Engineer Name | Role | Phone | + +------+ + | Romy De La Paz MD | PCP | | + +------+ + Encounter Details +--------+ + + + + | Date | Type | Department | Care Team | Description | +--------+ + + + + | 07/18/ | Clinical | [facility] | | Radiculopathy of | | 2019 | Support | NEUROSURGERY [address] | | thoracolumbar | | | | [address] | | region; | | | | [place], [place] | | Postlaminectomy | | | | [address] | | syndrome, thoracic | | | | [phone] | | region | +--------+ + + [...] concerns feel free to call us at [phone]. documented in this encounter Progress Notes Niki [...] that she will on occasion run a Sassor ow grade fever and all tests and blood work come back negative infection, patient states she does have a history of UTI's as well. Patient was sent to [facility] for their scheduled pre-admit appointment, anesthesia consult, [...] [place] | | | | | | [id number] | | | | | | | | +--------+---------+ + + + documented as of this encounter Visit Diagnoses + + | Diagnosis | + + | Radiculopathy of thoracolumbar region Thoracic or lumbosacral neuritis or | | radiculitis, unspecified | + + | Postlaminectomy syndrome, thoracic region | + + documented in this encounter
--- OUTSIDE RECORDS SUMMARY | ~2019-09-24 | XMS | Encounter Summary ---
Demographics + + + | Address | [address] | | | [place] [address] | + + + | Home Phone [...] Providers + +------+ + | Care Chief Wheelage Clerk Name | Role | Phone | [...] | Pain | Diagnoses | Cr, | Cage Maker Chh1 | | | | Management | PPS (pelvic | MD Britta | [address] | | | | | pain | [address] | | | | | syndrome) | [facility] | Mailcode: | | | | | Procedures | Rd | [facility] | | | | | CONSULT TO | [facility] [place] | for Health | | | | | PAIN CENTER | [address] | and Healing, | | | | | | Phone: | Building | | | | | | [phone] | [address] Floor | | | | | | Fax: | [place], [place] | | | | | | [phone] | [address] | | | | | | | Phone: | | | | | | | [phone] | | | | | | | Fax: | | | | | | | [phone] | +--------+--------+ + + + + Reason [...] | | | | | symptom | [address] | | | | | associated | [place] | [address] | | | | | with female | Urology [address] | | | | | genital | [address] | [address] | | | | | organs | [address] [place], | [place], [place] | | | | | Unspecified | [place] [address] | [address] | | | | | urinary | Phone: | Phone: | | | | | incontinence | [phone] | [phone] | | | | | | Fax: | Fax: | | | | | | [phone] | [phone] | +--------+--------+ + + + + Encounter Details +--------+---------+ + + + | Date | Type | Department | Care Team | Description | +--------+---------+ + + + | 11/29/ | Office | [facility] | Britta Hankins MD | PPS (pelvic pain | | 2014 | Visit | [facility] | [address] | syndrome) (Primary | | | | [address] | [address] [place], | Dx); Depression with | | | | [address] | [place] [address] | suicidal ideation; | | | | Aravind Hannon | [phone] | Recurrent UTI; | | | | [place], [place] | | Hypoestrogenism | | | | [address] | | | | | | [phone] | | | +--------+---------+ + + + [...] 4. Referral to pain service here at [facility] 5. Let me know if [...] (2 vag, 1 cs, she had to [facility] hospitalized after her second delivery for infection) seen at the request of Dr. Ck wan r pelvic pain and LUTs following pelvic reconstructive surgery. She is accompanied by her so sadiq Ball. He lives here in [place] so he is not fully aware of her recent health issues but h e did help in providing some of his mother's past history. 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 Long gold, she was hospitalized at [facility] in 2005 for a Vicodin [...] speaker, a good grandmother". Her physicians in [place] and elsewhere will not pre scribe pain [...] until she was able to leave her [employer] house at age 20. Her aunt recently [...] estrogenization of the vulvova ginal tissues; negative [employer]; no hypospadias of the urethra; + tenderness [...] F/U with Dr. Stover on return to [place]. I am Christine Monterroso functioning as a scribe for Dr. Britta Hankins. Christine Monterroso [facility] [id number] [facility] [address] [facility] [place] [id number] I have reviewed, verified, and amended the [...] for afternoon appointments. Britta Hankins M.D., FACS Building Maintenance Supervisor [facility] documented in this encoun [...]
--- OUTSIDE RECORDS SUMMARY | ~2019-09-24 | XMS | Clinical Summary ---
Demographics + + + | Address | [address] | | | [place] [address] | + + + | Home Phone [...] Team Providers + +------+ + | Care Journeyman Lineman Name | Role | Phone | + [...] | | 19 | | | | [facility] current | Responsiveness (May | | | [...] Overview: Added automatically from request for surgery [id number] | + + + + + | Spondylosis without myelopathy or radiculopathy, lumbosacral | 03/20/2019 | | region | | + + + + + | Overview: Added automatically from request for surgery [id number] | + + + + + | Chronic bilateral low back pain without sciatica | 03/20/2019 | + + + + + | Overview: Added automatically from request for surgery [id number] | + + + + + | Intervertebral disc disorders with radiculopathy, lumbosacral | 02/25/2019 | | region | | + + + + + | Overview: Added automatically from request for surgery [id number] | + + + + + | Chronic low back pain with sciatica | 02/25/2019 | + + + + + | Overview: Added automatically from request for surgery [id number] | + + + + + | Lumbar region somatic dysfunction | 02/25/2019 | + + + + + | Overview: Added automatically from request for surgery [id number] | + + + + + | Strain of lumbar region | 02/25/2019 | + + + + + | Overview: Added automatically from request for surgery [id number] | + + + + + | Spinal stenosis of lumbosacral region | 02/25/2019 | + + + + + | Overview: Added automatically from request for surgery [id number] | + + + + + | [...] Overview: Added automatically from request for surgery [id number] | | Problem List Independent Insurance Adjuster Utility | + + + + + [...] + +---+ + + | Overview: CHRISKeven [id number] Decision | + + + +---+ | [...] [place] | | | | | | [address] | | | | | | | [...] | | 03/04/ | [id number] | | [id number]: Qty: 1 | ogical | Spine | MEDICAL - | | 2020 | S | | on 08/03/2019 by Cuong, | | Lumbar | MODESTA | | | /[id number] | | MD Maykel at [facility] | Stimul | | | | | 444 | | [facility] | ator | | | [...] | | 11/23/ | [id number] | | [id number]: Qty: 1 on | | | MEDICAL - | | 2020 | S | | 03/28/2019 by Sonja, | | | STJU | | | /[id number] | | DO Alfredo | | | | | | 330 / | + +--------+--------+ +--------+--------+--------+ | Proclaim 5 EliteImplanted: | | N/A: | ST CASEY | | 01/15/ | 3660 | | Qty: 1 on 08/03/2019 by Cuong, | | Spine | MEDICAL - | 2020 | /[id number] | | MD Maykel at [facility] | | Lumbar | STJU | | | 6.1 | | [facility] | | | | | [...] | | | Needs | | | ADMINISTRATIVE ACCOUNTANT | | | reques | | | [...] Testing | 65 - 99 mg/dL | [facility] | | | POC | performed at [facility];[address] | | LABORATORY | | | | [address];[place] | | | | | | [address] | | | | + + + + + + + + | Specimen | + + | | + + + + + + + | Performing | Address | City/State/Zipcode | Phone Number | | Organization | | | | + + + + + | [facility] | [address] | [place] [address] | [phone] | + + + + + LINSEY [...] - 08/03/2019 9:52 AM PDT Anesthesia Airway Bnlxtwjsb34/4/2019 | | 9:33Preprocedure check: patient identified, oxygen, [...] + + + | BB BAND | [id number] | | [facility] | | | | | | LABORATORY | | + + + + + + | BB BAND | Testing performed at | | [facility] | | | | [facility];[address] | | LABORATORY | | | | Andrzej;[place] [address] | | | | + + + + + + + + | Specimen | + + | Blood | + + + + + + + | Performing | Address | City/State/Zipcode | Phone Number | | Organization | | | | + + + + + | [facility] | [address] | [place] [address] | [phone] | + + + + + XR [...] [facility] | | | | performed at [facility];[address] | | LABORATORY | | | | [address];[place] | | | | | | [address] | | | | + + + + + + + + | Specimen | + + | Tissue - Both | | anterior nares (body | | structure) | + + + + + + + | Performing | Address | City/State/Zipcode | Phone Number | | Organization | | | | + + + + + | [facility] | [address] | [place] [address] | [phone] | + + + + + PTT (07/18/2019 2:26 PM PDT) + + + + + + | Component | Value | Ref Range | Performed | Pathologist | | | | | At | Signature | + + + + + + | PTT | 29Comment: Testing | 23 - 32 seconds | [facility] | | | | performed at [facility];[address] | | LABORATORY | | | | [address];[place] | | | | | | [address] | | | | + + + + + + + + | Specimen | + + | Blood | + + + + + + + | Performing | Address | City/State/Zipcode | Phone Number | | Organization | | | | + + + + + | [facility] | [address] | [place] [address] | [phone] | + + + + + Protime [...] | | | | | performed at [facility];[address] | | | | | | [address];[place], [place] | | | | | | [address] | | | | + + + + + + + + | Specimen | + + | Blood | + + + + + + + | Performing | Address | City/State/Zipcode | Phone Number | | Organization | | | | + + + + + | [facility] | [address] | [place] [address] | [phone] | + + + + + CBC [...] | | | Absolute | performed at [facility], [address] | K/uL | LABORATORY | | | | [address], | | | | | | [place] [address] | | | | + + + + + + + + | Specimen | + + | Blood | + + + + + + + | Performing | Address | City/State/Zipcode | Phone Number | | Organization | | | | + + + + + | [facility] | [address] | [place] [address] | [phone] | + + + + + Comprehensive [...] | >60Comment: GFR <60: | >60 | [facility] | | | GFR | [...] | | | | | | MDRD IDAZ traceable | | | | | | equation.Testing | | | | | | performed at [facility], [address] | | | | | | [facility], | | | | | | [place] [address] | | | | + + + + + + + + | Specimen | + + | Blood | + + + + + + + | Performing | Address | City/State/Zipcode | Phone Number | | Organization | | | | + + + + + | [facility] | [address] | [place] [address] | [phone] | + + + + + ECG [...] +---------+--------+ | INDIVIDUAL ASSURANCE | INDIVI | [id number] | | | | Indemn | | [...] +--------+ +---------+--------+ | MEDICARE | MEDICA | [id number] | | [phone] | | Medica | | | RE | | 991-Pr | 5 | | re | | | PART A | | esent | | | | | | AND B | | | | | | + +--------+ +--------+ +---------+--------+ | MEDICARE | MEDICA | [id number] | | [phone] | | Medica | | | RE | | 991-Pr | 5 | | re | | | PART A | | esent | | | | | | AND B | | | | | | + +--------+ +--------+ +---------+--------+ | MEDICARE | MEDICA | [id number] | | [phone] | | Medica | | | RE | | 991-Pr | 5 | | re | | | PART A | | esent | | | | | | AND B | | | | | | + +--------+ +--------+ +---------+--------+ | MEDICARE | MEDICA | [id number] | | [phone] | | Medica | | | RE | | 991-Pr | 5 | | re | | | PART A | | esent | | | | | | AND B | | | | | | + +--------+ +--------+ +---------+--------+ | INDIVIDUAL ASSURANCE | INDIVI | [id number] | | | | Indemn | | [...] +---------+--------+ | INDIVIDUAL ASSURANCE | INDIVI | [id number] | | | | Indemn | | [...] +---------+--------+ | INDIVIDUAL ASSURANCE | INDIVI | [id number] | | | | Indemn | | [...] antonio/Benji | | 1945 | [phone] | [place] [address] | | | jose | | | 8 (Home) | | + +--------+ +--------+ + + | Tyrese Rubio | Person | Self | [birth year] | [address] | | mandeep Harshal | al/Fam | | 1945 | [phone] | [place] [address] | | | jose | | | 8 (Home) | | + +--------+ +--------+ + + | Tyrese Rubio | Person | Self | [birth year] | [address] | | mandeep Harshal | al/Fam | | 1945 | [phone] | [place] [address] | | | jose | | | 8 (Home) | | + +--------+ +--------+ + + | Tyrese Rubio | Person | Self | [birth year] | [address] | | mandeep Harshal | al/Fam | | 1945 | [phone] | [place] [address] | | | jose | | | 8 (Home) | | + +--------+ +--------+ + + Advance Directives + + + + + | Type | Date Recorded | Patient | Explanation | | | | 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
--- OUTSIDE RECORDS SUMMARY | ~2019-09-24 | XMS | Encounter Summary ---
Demographics + + + | Address | [address] | | | [place] [address] | + + + | Home Phone [...] Team Providers + +------+ + | Care Solo Musician Name | Role | Phone | [...] | | [address] | [place] [address] | | | | | [place] | [phone] | | | | | [address] | | | | | | [phone] | | | +--------+ + + + [...] [place] | | | | | | [address] | | | | | | | | +--------+---------+ + + + documented as of this encounter Visit Diagnoses Not on filedocumented in this encounter"
--- OUTSIDE RECORDS SUMMARY | ~2019-09-24 | XMS | Encounter Summary ---
Demographics + + + | Address | [address] | | | [place] [address] | + + + | Home Phone [...] Providers + +------+ + | Care Heel Nail Rasper Name | Role | Phone | + [...] [address] | | | | | [place], | [place], [place] | | | | | [place] [address] | [address] | | | | | [phone] | | | +--------+ + + + [...] [place] | | | | | | [address] | | | | | | | | +--------+---------+ + + + documented as of this encounter Visit Diagnoses Not on filedocumented in this encounter"
--- OUTSIDE RECORDS SUMMARY | ~2019-09-24 | XMS | Encounter Summary ---
Demographics + + + | Address | [address] | | | [place] [address] | + + + | Home Phone [...] Team Providers + +------+ + | Care Collections Curator Name | Role | Phone | + [...] + + | 04/10/ | Telephone | [facility] | Nick Martinez, | Medication Prior | | 2017 | | PHYSIATRY [address] | PA-C [address] | Authorization | | | | [place], | [address] [place] | (Lidocaine Patch ) | | | | [place] [address] | [place] [address] | | | | | [phone] | [phone] | | | | | | | [...] [place] | | | | | | [address] | | | | | | | | +--------+---------+ + + + documented as of this encounter Visit Diagnoses Not on filedocumented in this encounter"
--- OUTSIDE RECORDS SUMMARY | ~2019-09-24 | XMS | Encounter Summary ---
Demographics + + + | Address | [address] | | | [place] [address] | + + + | Home Phone [...] Team Providers + +------+ + | Care Corn Sheller Operator Name | Role | Phone | [...] Chronic low | [place], | [address] | | | | | back pain | Shay Mukherjee MD | [place], | | | | | Lumbar | [address] | [place] | | | | | radiculopath | [place] | [address] | | | | | y | [place] | Phone: | | | | | Procedures | [address] | [phone] | | | | | MRI Lumbar | Phone: | Fax: | | | | | Spine wo | [phone] | [phone] | | | | | Contrast | Fax: | | | | | | MRI | [phone] | | +--------+--------+ + + + + [...] pain (Primary Dx); | | | | [place], | [place] | Lumbar radiculopathy | | | | [place] [address] | [address] | | | | | [phone] | | | +--------+ + + + [...] [place] | | | | | | [address] | | | | | | | [...] + | Performing | Address | City[facility] | Phone Number | | Organization | | | | + +---------+ + + | [facility] | | | [phone] | + +---------+ + + | [facility]ISC[facility] | | | [phone] | + +---------+ + + documented in this encounter Visit Diagnoses + + | Diagnosis | + + | Chronic low back pain - Primary Lumbago | + + | Lumbar radiculopathy Thoracic or lumbosacral neuritis or radiculitis, unspecified | + + documented in this encounter"
--- OUTSIDE RECORDS SUMMARY | ~2019-09-24 | XMS | Encounter Summary ---
Demographics + + + | Address | [address] | | | [place] [address] | + + + | Home Phone [...] Team Providers + +------+ + | Care Wringer And Setter Name | Role | Phone | + +------+ + PCP | Unavailable | + +------+ + Encounter Details +--------+ + + + + | Date | Type | Department | Care Team | Description | +--------+ + + + + | 10/31/ | Hospital | [facility] | | | | 1999 - | Encounter | [facility] | | | | | | ALEXEY Hernadez | | | | 03/16/ | | [place], [place] | | | | 2000 | | [address] | | | | | | [phone] | | | +--------+ + + + [...] [place] | | | | | | [address] | | | | | | | | +--------+---------+ + + + documented as of this encounter Visit Diagnoses Not on filedocumented in this encounter"
--- OUTSIDE RECORDS SUMMARY | ~2019-09-24 | XMS | Encounter Summary ---
Demographics + + + | Address | [address] | | | [place] [address] | + + + | Home Phone [...] Team Providers + +------+ + | Care Trust Vault Custodian Name | Role | Phone | [...] | Cervical | Darrin | [address] | | | | | radiculopath | BRI Doan | [place], | | | | | y | [address] | [place] | | | | | Myelopathy | [address] | [address] | | | | | (HCC) | [address] | Phone: | | | | | Procedures | [place], | [phone] | | | | | MRI Cervical | [place] [address] | Fax: | | | | | Spine wo | Phone: | [phone] | | | | | Contrast | [phone] | | | | | | | Fax: | | | | | | | [phone] | | +--------+--------+ + + + + [...] | | | | | lumbar | [facility] [address] | [address] | | | | | region | [address] | [address] | | | | | Chronic low | [place], [place] | [place], | | | | | back pain | [address] | [place] [address] | | | | | Facet | Phone: | Phone: | | | | | arthritis of | [phone] | [phone] | | | | | lumbar | Fax: | Fax: | | | | | region | [phone] | [phone] | | | | | Scoliosis of [...] | | | | | | [place] OFFICE | | | | | | [...] + | 07/26/ | Office | [facility] | Darrin Hoyos | 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 After these tests have been completed we w ill see you back in review the resultsElectronically signed by PEE Somers at 11:54 AM PDT documented in this encounter Progress Notes Darrin Hoyos PA - 07/26/2014 11:13 AM PDTFormatting of this note might be differen t from the original. PEE Vang [address] [facility], [address] [place] [address] FAX: NEUROSURGERY HISTORY AND PHYSICAL EXAMINATION CHIEF [...] ently a also seen a surgeon in [facility] he stated she did not need to have surgery pawel dave to her report. She also reports she had a recent MRI in the [facility] which I do not marcos [...] with short or ferry terminal agent memory. CRANIAL NERVES: II: Acuity is intact. [...] Intrinsics 5 4 Ulnar Intrinsics 5 4 Mortgage Loan Officer Strength 5 4 Hip Flexion 5 4 [...] and coordinating her care. ELECTRONICALLY SIGNED BY: EPE Vang, 07/26/2014 12:03 documented in th is [...] [place] | | | | | | [address] | | | | | | | [...]
--- OUTSIDE RECORDS SUMMARY | ~2019-09-24 | XMS | Encounter Summary ---
Demographics + + + | Address | [address] | | | [place] [address] | + + + | Home Phone [...] Team Providers + +------+ + | Care Legal Recovery Specialist Name | Role | Phone | [...] | | | | | | | NC SURG | | | | | | | IMPLNT | | | | | | | NEUROELECT,E | | | | | | | PIDURAL NC | | | | | | | IMPLANT | | | | | | | NEUROSTIM/RE | | | | | | | CEIVER NC | | | | | | [...] + + | 08/03/ | Surgery | [facility] | Maykel Hutchins MD | LAMINOTOMY THORACIC | | 2019 | | [facility] | [address] | / LUMBAR W/ | | | | OPERATING ROOM [address] | [place] | PLACEMENT SPINAL | | | | [address] | [place] [address] | CORD STIMULATOR | | | | [place] | [phone] | | | | | [address] | | | | | | [phone] | | | +--------+---------+ + + + [...] note might be different from logan phillips. [facility]. 08/04/2019 DISCHARGE SUMMARY PATIENT NAME: Kori [...] by elevating your feet Date Last Reviewed: 3548-1066 [employer]. [address] [place] [address]. All righ ts reserved. This information is not intended as a substitute for professional medical care. Always follow your healthcare professional's instructions. Acetaminophen; Hydrocodone tablets or capsules Brand Names: Anexsia, Lorcet, Lorcet HD, Lorcet Plus, Lortab, Campbell, Verdrocet, Vicodin, Vi codin ES, Vicodin HP, [...] information carefully each time. Talk to your chemical machine tender regarding the use of this medicine in children. Special care may be needed. What side effects may I notice from receiving this medicine? Side effects that you should report to your doctor or health career services assistant as soon as p ossible: allergic reactions [...] attention (report to your doctor or health career services assistant if they continue or are bothersome): constipation [...] official disposal site. Contact the [employer] at [phone] or your [facility] to find a site. If you [...] this medicine? Tell your doctor or health career services assistant if your pain does not go away, [...] | | | | | | senior care current | Responsiveness (May | | [...] MSW - 08/04/2019 2:12 PM PDTCase manager web sent out Home Health order to Kadi [...] her up today to go home to [facility]. Past Medical History: Diagnosis Date Acid reflux disease Acute renal failure ([facility]) April 2013 Adverse effect of anesthesia [...] [facility] Diabetes mellitus, type [address]) diet controlled Diabetes type 2, controlled [...] 100 mg Oral BID PRN Julien Guzman DETECTIVE SUPERVISOR HYDROcodone-acetaminophen (NORCO) 10-325 mg per tablet 1 tablet 1 tablet Oral Q4H PRN Julien Guzman, DETECTIVE SUPERVISOR 1 tablet at 08/04/19 0502 HYDROmorphone (DILAUDID) injection 0.2-0.4 mg 0.2-0.4 mg Intravenous Q1H PRN Maykel ortiz MD 0.2 mg at 08/03/19 1700 methocarbamol (ROBAXIN) tablet 1,500 mg 1,500 mg Oral Q6H PRN RENATO DavisP ondansetron (ZOFRAN ODT) disintegrating tablet 4 mg 4 mg Oral Q6H PRN Julien Guzman DETECTIVE SUPERVISOR rOPINIRole (REQUIP) tablet 4 mg 4 mg Oral 4x Daily PRN Maykel Hutchins MD senna (SENOKOT) tablet 8.6 mg 8.6 mg Oral BID PRN Julien Guzman DETECTIVE SUPERVISOR sodium chloride 0.45% (1/2 NS) infusion Intravenous Continuous Maykel Hutchins MD 100 mL /hr at 08/03/19 1342 950 mL at 08/03/19 1342 sodium chloride 0.45% (1/2 NS) infusion Intravenous Continuous Julien Guzman DETECTIVE SUPERVISOR 100 m L/hr at 08/04/19 0057 Allergies [...] [place] | | | | | | [address] | | | | | | | [...] | | | Needs | | | WELDING ROD COATER | | | reques | | | [...] | | | POC | performed at [facility] | | LABORATORY | | | | [address];[place], [place] | | | | | | [address] | | | | + + + + + + + + | Specimen | + + | | + + + + + + + | Performing | Address | City/State/Zipcode | Phone Number | | Organization | | | | + + + + + | [facility] | [address] | [place] [address] | [phone] | + + + + + POC Glucose (08/03/2019 4:15 PM PDT) + + + + + + | Component | Value | Ref Range | Performed | Pathologist | | | | | At | Signature | + + + + + + | Glucose, | 99Comment: Testing | 65 - 99 mg/dL | [facility] | | | POC | performed at [facility];[address] | | LABORATORY | | | | [address];[place] | | | | | | [address] | | | | + + + + + + + + | Specimen | + + | | + + + + + + + | Performing | Address | City/State/Zipcode | Phone Number | | Organization | | | | + + + + + | [facility] | [address] | [place] [address] | [phone] | + + + + + POC [...] | | | POC | performed at [facility];[address] | | LABORATORY | | | | [address];[place], [place] | | | | | | [address] | | | | + + + + + + + + | Specimen | + + | | + + + + + + + | Performing | Address | City/State/Zipcode | Phone Number | | Organization | | | | + + + + + | [facility] | [address] | [place] [address] | [phone] | + + + + + POC [...] | | | POC | performed at [facility];[address] | | LABORATORY | | | | [address];[place] | | | | | | [address] | | | | + + + + + + + + | Specimen | + + | | + + + + + + + | Performing | Address | City/State/Zipcode | Phone Number | | Organization | | | | + + + + + | [facility] | [address] | [place] [address] | [phone] | + + + + + LINSEY [...] | | | POC | performed at [facility];[address] | | LABORATORY | | | | [address];[place] | | | | | | [address] | | | | + + + + + + + + | Specimen | + + | | + + + + + + + | Performing | Address | City/State/Zipcode | Phone Number | | Organization | | | | + + + + + | [facility] | [address] | [place] [address] | [phone] | + + + + + POC Glucose (08/03/2019 9:14 AM PDT) + + + + + + | Component | Value | Ref Range | Performed | Pathologist | | | | | At | Signature | + + + + + + | Glucose, | 80Comment: Testing | 65 - 99 mg/dL | [facility] | | | POC | performed at [facility];[address] | | LABORATORY | | | | [address];[place] | | | | | | [address] | | | | + + + + + + + + | Specimen | + + | | + + + + + + + | Performing | Address | City/State/Zipcode | Phone Number | | Organization | | | | + + + + + | [facility] | [address] | [place] [address] | [phone] | + + + + + Type [...] + + + | BB BAND | [id number] | | [facility] | | | | | | LABORATORY | | + + + + + + | BB BAND | Testing performed at | | [facility] | | | | [facility];[address] | | LABORATORY | | | | [address]rze[address];[place] [address] | | | | + + + + + + + + | Specimen | + + | Blood | + + + + + + + | Performing | Address | City/State/Zipcode | Phone Number | | Organization | | | | + + + + + | [facility] | [address] | [place] [address] | [phone] | + + + + + POC Glucose (08/03/2019 7:23 AM PDT) + + + + + + | Component | Value | Ref Range | Performed | Pathologist | | | | | At | Signature | + + + + + + | Glucose, | 77Comment: Testing | 65 - 99 mg/dL | [facility] | | | POC | performed at [facility];[address] | | LABORATORY | | | | [address];[place], [place] | | | | | | [address] | | | | + + + + + + + + | Specimen | + + | | + + + + + + + | Performing | Address | City/State/Zipcode | Phone Number | | Organization | | | | + + + + + | [facility] | [address] | [place] [address] | [phone] | + + + + + documented [...] | | | | | | | [facility] 08/03/19 at 1007, Intra-op | [...]
--- OUTSIDE RECORDS SUMMARY | ~2019-09-24 | XMS | Encounter Summary ---
Demographics + + + | Address | [address] | | | [place] [address] | + + + | Home Phone [...] + + | 07/17/ | Hospital | [facility] | Paty, | Intractable low back | | 2014 - | Encounter | [facility] | MD [address] | pain | | | | CLINICAL DECISION | [address] | | | 07/18/ | | [address] | [place] [address] | | | 2013 | | [place], [place] | [phone] | | | | | [address] | | | | | | [phone] | | | +--------+ + + + [...] Date of Service: 07/18/14 1131 Status: Signed Mill Dresser: Bob Valverde DO (Physician) [facility] Service: Hospitalist Discharge Summary Date of Admission: [...] IV Fentanyl, a s well as oral [place] 10's, Zanaflex, Klonopin, and PT was ordered. [...] MRI system. Multiplanar sequences according to [facility] protocol were acquired without contrast. FINDINGS: There [...] Date of Service: 07/18/14 1310 Status: Signed Mill Dresser: Nati Mena RN (Registered Nurse) Pt discharged [...] Notes by Nati Mena RN at 07/18/14 0801 Author: Nati Mena RN Service: (none) Author Type: Registered Nurse Filed: 07/18/14 6587 Date of Service: 07/18/14 1245 Status: Signed Mill Dresser: Nati Mena RN (Registered Nurse) Pt to [...] Date of Service: 07/18/14 1245 Status: Addendum Mill Dresser: Sj Bender PT (Physical Therapist) Related Notes: [...] Recommended (has FWW) Prior Function Level of [place] Modified independent with functional mobility;Modified independent wi [...] G Codes Mobility: Walking & Moving Around: $[id number] Current Status : CK - At least 40% but less than 60% impaired, limited or restricted $[id number] Projected Goal Status : CK - At [...] 0549 Date of Service: 07/18/14509 Status: Signed Mill Dresser: Dion Goldsmith RN (Registered Nurse) Pt awakened by agricultural labor camp manager and states she needs to go to [...] 0436 Date of Service: 07/18/14409 Status: Signed Mill Dresser: Dion Goldsmith RN (Registered Nurse) Pt's b/p slightly low. INFORMATICS PHYSICIAN LIAISON reports pt woke up to ask what her blood pressure is. Pt sleepin g now. Plan to recheck B/P in an hour. onver hiren Akosua, Provider Unknown - 07/18/2014 3:29 AM PDT Progress Notes by Sofi Sol RPH at 07/18/14328 Author: Sofi Sol RPH Service: (none) Author Type: Pharmacist Filed: 07/18/14328 Date of Service: 07/18/14328 Status: Signed Mill Dresser: Sofi Sol RPH (Pharmacist) Clinical Pharmacy Note: [...] [place] | | | | | | [address] | | | | | | | [...] performed at [facility] | | LAB | | | | [address];[place], [place] | | | | | | [address] | | | | + + + [...] | LAB | | | | [address];[place] | | | | | | [address] | | | | + + + [...] EXTERNAL | | | | performed at [facility], [address] | | LAB | | | | [address], | | | | | | [place] [address] | | | | + + + + + + | RED CELL | 4.16Comment: Testing | 3.70 - 5.10 | EXTERNAL | | | COUNT | performed at [facility], [address] | M/uL | LAB | | | | [address], | | | | | | [place] [address] | | | | + + + + + + | Hgb | 11.6Comment: Testing | 11.3 - 15.5 | EXTERNAL | | | | performed at [facility], [address] | g/dL | LAB | | | | [address], | | | | | | [place] [address] | | | | + + + + + + | Hematocrit, | 36.4Comment: Testing | 34.0 - 46.0 % | EXTERNAL | | | POC | performed at [facility], [address] | | LAB | | | | [address], | | | | | | [place] [address] | | | | + + + + + + | MCV | 87.5Comment: Testing | 80.0 - 100.0 fl | EXTERNAL | | | | performed at [facility], [address] | | LAB | | | | [address], | | | | | | [place] [address] | | | | + + + + + + | MCH | 27.9Comment: Testing | 27.0 - 34.0 pg | EXTERNAL | | | | performed at [facility], [address] | | LAB | | | | [address], | | | | | | [place] [address] | | | | + + + + + + | MCHC | 31.9 (L)Comment: Testing | 32.0 - 35.5 | EXTERNAL | | | | performed at [facility], [address] | g/dL | LAB | | | | [address], | | | | | | [place] [address] | | | | + + + + + + | RDW-CV | 43.8Comment: Testing | 37 - 53 fl | EXTERNAL | | | | performed at [facility], [address] | | LAB | | | | [address], | | | | | | [place] [address] | | | | + + + + + + | Platelet | 244Comment: Testing | 150 - 400 K/uL | EXTERNAL | | | Count | performed at [facility], [address] | | LAB | | | Plasma | [address], | | | | | | [place] [address] | | | | + + + + + + | MPV | 8.3Comment: Testing | fl | EXTERNAL | | | | performed at [facility], [address] | | LAB | | | | [address], | | | | | | [place] [address] | | | | + + + + + + | Differentia | AUTOMATEDComment: | | EXTERNAL | | | l Type | Testing performed at | | LAB | | | | [facility], [address] | | | | | | [place] | | | | | | [address] | | | | + + + [...] | | | | | [place] [address] | | | | + + + + + + | % Monocytes | 9.5Comment: Testing | % | EXTERNAL | | | | performed at [facility], [address] | | LAB | | | | [address], | | | | | | [place] [address] | | | | + + + + + + | % | 1.9Comment: Testing | % | EXTERNAL | | | Eosinophils | performed at [facility], [address] | | LAB | | | | [address], | | | | | | [place] [address] | | | | + + + + + + | % Basophils | 0.4Comment: Testing | % | EXTERNAL | | | | performed at [facility], [address] | | LAB | | | | [address], | | | | | | [place] [address] | | | | + + + + + + | Absolute | 2.0Comment: Testing | 1.9 - 7.4 K/uL | EXTERNAL | | | Segmented | performed at [facility], [address] | | LAB | | | Neutrophils | [address], | | | | | | [place] [address] | | | | + + + + + + | Absolute | 2.4Comment: Testing | 1.0 - 3.9 K/uL | EXTERNAL | | | Lymphocytes | performed at [facility], [address] | | LAB | | | | [address], | | | | | | [place] [address] | | | | + + + + + + | Absolute | 0.5Comment: Testing | 0 - 0.8 K/uL | EXTERNAL | | | Monocytes | performed at [facility], [address] | | LAB | | | | [address], | | | | | | [place] [address] | | | | + + + + + + | Absolute | 0.1Comment: Testing | 0 - 0.5 K/uL | EXTERNAL | | | Eosinophils | performed at [facility], [address] | | LAB | | | | [address], | | | | | | [place] [address] | | | | + + + + + + | Absolute | 0.0Comment: Testing | 0 - 0.1 K/uL | EXTERNAL | | | Basophils | performed at [facility], [address] | | LAB | | | | [address], | | | | | | [place] [address] | | | | + + + [...] uIU/mL | LAB | | | | [address], | | | | | | [place] [address] | | | | + + + [...] EXTERNAL | | | | performed at [facility], [address] | | LAB | | | | [address], | | | | | | [place] [address] | | | | + + + [...] | | | | | [place] [address] | | | | + + + [...] + + | Hemoglobin | 5.2Comment: The Ghanaian | 4.0 - 6.0 % | EXTERNAL [...] | | | | | performed at [facility], [address] | | | | | [address], | | | | | | [place] [address] | | | | + + + [...] | | | | | performed at [facility], [address] | | | | | | [address], | | | | | | [place] [address] | | | | + + + [...] | | | Direct | performed at [facility], [address] | | LAB | | | | [address], | | | | | | [place] [address] | | | | + + + [...] | | | | | [place] [address] | | | | + + + + + + | K | 4.0Comment: Testing | 3.5 - 4.9 | EXTERNAL | | | | performed at [facility], [address] | mmol/L | LAB | | | | [address], | | | | | | [place] [address] | | | | + + + + + + | Cl | 106Comment: Testing | 99 - 109 mmol/L | EXTERNAL | | | | performed at [facility], [address] | | LAB | | | | [address], | | | | | | [place] [address] | | | | + + + + + + | CO2 | 28Comment: Testing | 23 - 32 mmol/L | EXTERNAL | | | | performed at [facility], [address] | | LAB | | | | [address], | | | | | | [place] [address] | | | | + + + + + + | Anion Gap | 8Comment: Testing | 5 - 20 mmol/L | EXTERNAL | | | | performed at [facility], [address] | | LAB | | | | [address], | | | | | | [place] [address] | | | | + + + + + + | Glucose, | 82Comment: Testing | 65 - 99 mg/dL | EXTERNAL | | | Fasting | performed at [facility], [address] | | LAB | | | | [address], | | | | | | [place] [address] | | | | + + + + + + | BUN | 18Comment: Testing | 8 - 25 mg/dL | EXTERNAL | | | | performed at [facility], [address] | | LAB | | | | [address], | | | | | | [place] [address] | | | | + + + + + + | Creatinine | 0.61Comment: Testing | 0.50 - 1.00 | EXTERNAL | | | | performed at [facility], [address] | mg/dL | LAB | | | | [address], | | | | | | [place] [address] | | | | + + + + + + | BUN/Creatin | 30Comment: Testing | | EXTERNAL | | | ine Ratio | performed at [facility], [address] | | LAB | | | | [address], | | | | | | [place] [address] | | | | + + + + + + | Calcium | 8.7Comment: Testing | 8.5 - 10.2 | EXTERNAL | | | | performed at [facility], [address] | mg/dL | LAB | | | | [address], | | | | | | [place] [address] | | | | + + + + + + | Protein, | 5.9 (L)Comment: Testing | 6.3 - 8.2 g/dL | EXTERNAL | | | Total | performed at [facility], [address] | | LAB | | | | [address], | | | | | | [place] [address] | | | | + + + + + + | Albumin | 3.7Comment: Testing | 3.3 - 4.8 g/dL | EXTERNAL | | | | performed at [facility], [address] | | LAB | | | | [address], | | | | | | [place] [address] | | | | + + + + + + | Globulin | 2.2Comment: Testing | 1.3 - 4.9 g/dL | EXTERNAL | | | | performed at [facility], [address] | | LAB | | | | [address], | | | | | | [place] [address] | | | | + + + + + + | A/G Ratio | 1.7Comment: Testing | 1.0 - 2.4 | EXTERNAL | | | | performed at [facility], [address] | | LAB | | | | [address], | | | | | | [place] [address] | | | | + + + + + + | Bilirubin | 0.3Comment: Testing | 0.1 - 1.5 mg/dL | EXTERNAL | | | Total | performed at [facility], [address] | | LAB | | | | [address], | | | | | | [place] [address] | | | | + + + + + + | ALP, | 86Comment: Testing | 35 - 115 U/L | EXTERNAL | | | External | performed at [facility], [address] | | LAB | | | | [address], | | | | | | [place] [address] | | | | + + + + + + | AST | 162 (H)Comment: Testing | 10 - 45 U/L | EXTERNAL | | | | performed at [facility], [address] | | LAB | | | | [address], | | | | | | [place] [address] | | | | + + + + + + | ALT | 112 (H)Comment: Testing | 10 - 65 U/L | EXTERNAL | | | | performed at [facility], [address] | | LAB | | | | [address], | | | | | | [place] [address] | | | | + + + [...] | | | | | | at [facility], [address] | | | | | | [address], | | | | | | [place] [address] | | | | + + + [...] | LAB | | | | [address];[place] | | | | | | [address] | | | | + + + [...]
--- OUTSIDE RECORDS SUMMARY | ~2019-09-24 | XMS | Encounter Summary ---
Demographics + + + | Address | [address] | | | [place] [address] | + + + | Home Phone [...] Providers + +------+ + | Care Shoe Sticks Repairer Name | Role | Phone | [...] | | 2012 | | [facility] | [address] | | | | | [address] | Juliana Schulte [place], | | | | | [address] | [place] [address] | | | | | [place] | [phone] | | | | | [place], [place] | | | | | | [address] | | | | | | [phone] | | | +--------+ + + + [...]
--- OUTSIDE RECORDS SUMMARY | ~2019-09-24 | XMS | Encounter Summary ---
Demographics + + + | Address | [address] | | | [place] [address] | + + + | Home Phone [...] Team Providers + +------+ + | Care Logistics Coordinator Name | Role | Phone | + +------+ + | Miquel Calhoun MD | PCP | | + +------+ + Encounter Details +--------+ + + + + | Date | Type | Department | Care Team | Description | +--------+ + + + + | 11/05/ | Telephone | [facility] | Khushbu Cortez, | | | 2013 | | [facility] | CERTIFIED VEHICLE FIRE INVESTIGATOR [place], [place] | | | | | [address] | [address] | | | | | [address] | | | | | | [place] | | | | | | [place], [place] | | | | | | [address] | | | | | | [phone] | | | +--------+ + + + [...]
--- OUTSIDE RECORDS SUMMARY | ~2019-09-24 | XMS | Encounter Summary ---
Demographics + + + | Address | [address] | | | [place] [address] | + + + | Home Phone [...] Team Providers + +------+ + | Care Waiter/Waitress Buffet Name | Role | Phone | + [...] [address] | | | | | [place], | [address] [place] | | | | | [place] [address] | [place] [address] | | | | | [phone] | [phone] | | | | | | | [...] [place] | | | | | | [address] | | | | | | | | +--------+---------+ + + + documented as of this encounter Visit Diagnoses Not on filedocumented in this encounter"
--- OUTSIDE RECORDS SUMMARY | ~2019-09-24 | XMS | Encounter Summary ---
Demographics + + + | Address | [address] | | | [place] [address] | + + + | Home Phone | | + + + | Preferred Language | Unknown | + + + | Marital Status | | + + + | Bahai Affiliation | 1013 | + + + | Race | Unknown | + + + | Ethnic Group | Unknown | + + + Author + + + | Author | [facility] | | | and Priteshana | + + + | Organization | [facility] | | [...] Team Providers + +------+ + | Care Cable Installer Repairer Helper Name | Role | Phone | [...] + + | 08/05/ | Emergency | [facility] | Dion Richardson | Chronic low back | | 2014 | | [facility] | Laz Richards MD | pain (Primary Dx); | | | | CENTER [address] | [address] | Weakness | | | | [place] | [place] | | | | | [address] | [address] | | | | | [phone] | | | +--------+ + + + [...] [place] | | | | | | [address] | | | | | | | [...] [address] | [place] | [phone] | | [facility] | | [address] | | | - LABORATORY | | | | + + + + + | [address] | [address] | [place] | | | [facility] | | [address] | | | - LABORATORY | | [...] ALEX | | | | | | [facility] | | | | [...] + | [address] | [address] | [place] | [phone] | | [facility] | | [address] | | | - LABORATORY | | | | + + + + + | [address] | [address] | [place], [place] | | | [facility] | | [address] | | | - LABORATORY | | [...] (H) | 7 - 18 mg/dL | [facility] | | | | | | [facility] | | | | | | MEDICAL | | | | | | CENTER - | | | | | | LABORATORY | | + + + + + + | Creatinine | 0.75 | 0.60 - 1.30 | [facility] | | | | | mg/dL | [facility] | | | | | | MEDICAL | | | | | | CENTER - | | | | | | LABORATORY | | + + + + + + | eGFR if not | >60Comment: GLOMERULAR | >=60 | [facility] | | | | FILTRATION | mL/min/1.73m2 | [facility] | | | CUBAN | RATE,ESTIMATED | | MEDICAL | | | | mL/min/1.13m7Zlrb than | | CENTER - | | [...] + | [facility] | [address] | [place], [place] | [phone] | | [facility] | | [address] | | | - LABORATORY | | | | + + + + + | [facility] | [address] | [place], [place] | | | [facility] | | [address] | | | - LABORATORY | | [...] | Basophils | | K/uL | [facility] | | | | | [...] + | [facility] | [address] | [place] | [phone] | | [facility] | | [address] | | | - LABORATORY | | | | + + + + + | [facility] | [address] | [place] | | | [facility] | | [address] | | | - LABORATORY | | [...] + | [facility] | [address] | [place], [place] | [phone] | | [facility] | | [address] | | | - LABORATORY | | | | + + + + + | [facility] | [address] | [place], [place] | | | [facility] | | [address] | | | - LABORATORY | | [...]
--- OUTSIDE RECORDS SUMMARY | ~2019-09-24 | XMS | Encounter Summary ---
Demographics + + + | Address | [address] | | | [place] [address] | + + + | Home Phone [...] | | + + +---------+ + | Natahlia Koes | ECON | Unknown | | + + +---------+ + Care Team Providers + +------+ + | Care Carrier Associate Name | Role | Phone | [...] + + | 08/06/ | Telephone | [facility] | Maykel Hutchins MD | Medication Question | | 2019 | | [facility] | [address] | | | | | [facility] | [place] | | | | | [address] [place] | [place] [address] | | | | | [place] | [phone] | | | | | [address] | | | | | | [phone] | | | +--------+ + + + [...] [place] | | | | | | [address] | | | | | | | | +--------+---------+ + + + documented as of this encounter Visit Diagnoses Not on filedocumented in this encounter"
--- OUTSIDE RECORDS SUMMARY | ~2019-09-24 | XMS | Encounter Summary ---
Demographics + + + | Address | [address] | | | [place] [address] | + + + | Home Phone [...] Team Providers + +------+ + | Care Band Nailer Name | Role | Phone | + +------+ + | Miquel Calhoun MD | PCP | | + +------+ + Encounter Details +--------+ + + + + | Date | Type | Department | Care Team | Description | +--------+ + + + + | 11/12/ | Telephone | [facility] | Khushbu Cortez, | | | 2013 | | [facility] | SUPPLY MANAGER [place], [place] | | | | | [address] | [address] | | | | | [address] | | | | | | [place] | | | | | | [place], [place] | | | | | | [address] | | | | | | [phone] | | | +--------+ + + + [...]
--- OUTSIDE RECORDS SUMMARY | ~2019-09-24 | XMS | Clinical Summary ---
Demographics + + + | Address | [address] | | | [place] [address] | + + + | Home Phone [...] Team Providers + +------+ + | Care Efficiency Expert Name | Role | Phone | [...] | | 19 | | | | correction current | [...] Overview: Added automatically from request for surgery [id number] | + + + + + | Spondylosis without myelopathy or radiculopathy, lumbosacral | 03/20/2019 | | region | | + + + + + | Overview: Added automatically from request for surgery [id number] | + + + + + | Chronic bilateral low back pain without sciatica | 03/20/2019 | + + + + + | Overview: Added automatically from request for surgery [id number] | + + + + + | Intervertebral disc disorders with radiculopathy, lumbosacral | 02/25/2019 | | region | | + + + + + | Overview: Added automatically from request for surgery [id number] | + + + + + | Chronic low back pain with sciatica | 02/25/2019 | + + + + + | Overview: Added automatically from request for surgery [id number] | + + + + + | Lumbar region somatic dysfunction | 02/25/2019 | + + + + + | Overview: Added automatically from request for surgery [id number] | + + + + + | Strain of lumbar region | 02/25/2019 | + + + + + | Overview: Added automatically from request for surgery [id number] | + + + + + | Spinal stenosis of lumbosacral region | 02/25/2019 | + + + + + | Overview: Added automatically from request for surgery [id number] | + + + + + | [...] Overview: Added automatically from request for surgery [id number] | | Problem List Package Checker Utility | + + + + + [...] + +---+ + + | Overview: CHRISKeven [id number] Decision | + + + +---+ | [...] + + | Brother | | | [place] | | | | (Age | | [...] [place] | | | | | | [address] | | | | | | | [...] | | [birth year] | [id number] | | [id number]: Qty: 1 | ogical | Spine | MEDICAL - | | 2020 | S | | on 08/03/2019 by Cuong, | | Lumbar | MODESTA | | | /[id number] | | MD Maykel at [facility] | Stimul | | | | | 444 | | [facility] | ator | | | | [...] | | 11/23/ | [id number] | | [id number]: Qty: 1 on | | | MEDICAL - | | 2020 | S | | 03/28/2019 by Sonja, | | | STJU | | | /[id number] | | DO Alfredo | | | [...] STJU | | | 6.1 | | [facility] | | | | | | [...] | | | Needs | | | SENIOR CLINICAL PROJECT MANAGER | | | reques | | [...] Testing | 65 - 99 mg/dL | [facility] | | | POC | performed at [facility];[address] | | LABORATORY | | | | [address];[place] | | | | | | [address] | | | | + + + + + + + + | Specimen | + + | | + + + + + + + | Performing | Address | City/State/Zipcode | Phone Number | | Organization | | | | + + + + + | [facility] | [address] | [place] [address] | [phone] | + + + + + LINSEY [...] - 08/03/2019 9:52 AM PDT Anesthesia Airway Estworvhn79/4/2019 | | 9:33Preprocedure check: patient identified, oxygen, [...] + + + | BB BAND | [id number] | | [facility] | | | | | | LABORATORY | | + + + + + + | BB BAND | Testing performed at | | [facility] | | | | [facility];[address] | | LABORATORY | | | | Andrzej;[place] [address] | | | | + + + + + + + + | Specimen | + + | Blood | + + + + + + + | Performing | Address | City/State/Zipcode | Phone Number | | Organization | | | | + + + + + | [facility] | [address] | [place] [address] | [phone] | + + + + + XR [...] [facility] | | | | performed at [facility];[address] | | LABORATORY | | | | [address];[place] | | | | | | [address] | | | | + + + + + + + + | Specimen | + + | Tissue - Both | | anterior nares (body | | structure) | + + + + + + + | Performing | Address | City/State/Zipcode | Phone Number | | Organization | | | | + + + + + | [facility] | [address] | [place] [address] | [phone] | + + + + + PTT (07/18/2019 2:26 PM PDT) + + + + + + | Component | Value | Ref Range | Performed | Pathologist | | | | | At | Signature | + + + + + + | PTT | 29Comment: Testing | 23 - 32 seconds | [facility] | | | | performed at [facility];[address] | | LABORATORY | | | | [address];[place] | | | | | | [address] | | | | + + + + + + + + | Specimen | + + | Blood | + + + + + + + | Performing | Address | City/State/Zipcode | Phone Number | | Organization | | | | + + + + + | [facility] | [address] | [place] [address] | [phone] | + + + + + Protime [...] | | | | | performed at [facility];[address] | | | | | | [address];[place], [place] | | | | | | [address] | | | | + + + + + + + + | Specimen | + + | Blood | + + + + + + + | Performing | Address | City/State/Zipcode | Phone Number | | Organization | | | | + + + + + | [facility] | [address] | [place] [address] | [phone] | + + + + + CBC [...] | | | Absolute | performed at [facility], [address] | K/uL | LABORATORY | | | | [address], | | | | | | [place] [address] | | | | + + + + + + + + | Specimen | + + | Blood | + + + + + + + | Performing | Address | City/State/Zipcode | Phone Number | | Organization | | | | + + + + + | [facility] | [address] | [place] [address] | [phone] | + + + + + Comprehensive [...] | >60Comment: GFR <60: | >60 | [facility] | | | GFR | [...] | | | | | | MDRD IDMN traceable | | | | | | equation.Testing | | | | | | performed at [facility], [address] | | | | | | [facility], | | | | | | [place] [address] | | | | + + + + + + + + | Specimen | + + | Blood | + + + + + + + | Performing | Address | City/State/Zipcode | Phone Number | | Organization | | | | + + + + + | [facility] | [address] | [place] [address] | [phone] | + + + + + ECG [...] +---------+--------+ | INDIVIDUAL ASSURANCE | INDIVI | [id number] | | | | Indemn | | [...] +--------+ +---------+--------+ | MEDICARE | MEDICA | [id number] | | [phone] | | Medica | | | RE | | 991-Pr | 5 | | re | | | PART A | | esent | | | | | | AND B | | | | | | + +--------+ +--------+ +---------+--------+ | MEDICARE | MEDICA | [id number] | | [phone] | | Medica | | | RE | | 991-Pr | 5 | | re | | | PART A | | esent | | | | | | AND B | | | | | | + +--------+ +--------+ +---------+--------+ | MEDICARE | MEDICA | [id number] | | [phone] | | Medica | | | RE | | 991-Pr | 5 | | re | | | PART A | | esent | | | | | | AND B | | | | | | + +--------+ +--------+ +---------+--------+ | MEDICARE | MEDICA | [id number] | | [phone] | | Medica | | | RE | | 991-Pr | 5 | | re | | | PART A | | esent | | | | | | AND B | | | | | | + +--------+ +--------+ +---------+--------+ | INDIVIDUAL ASSURANCE | INDIVI | [id number] | | | | Indemn | | [...] +---------+--------+ | INDIVIDUAL ASSURANCE | INDIVI | [id number] | | | | Indemn | | [...] +---------+--------+ | INDIVIDUAL ASSURANCE | INDIVI | [id number] | | | | Indemn | | [...] | 1945 | [phone] | [place] [address] | | | jose | | | 8 (Home) | | + +--------+ +--------+ + + | Tyrese Rbuio | Person | Self | [birth year] | [address] | | [place] | al/Fam | | 1945 | [phone] | [place] [address] | | | jose | | | 8 (Home) | | + +--------+ +--------+ + + | Tyrese Rubio | Person | Self | [birth year] | [address] | | [place] | al/Fam | | 1945 | [phone] | [place] [address] | | | jose | | | 8 (Home) | | + +--------+ +--------+ + + | Tyrese Rubio | Person | Self | [birth year] | [address] | | [place] | al/Fam | | 1945 | [phone] | [place] [address] | | | jose | | | 8 (Home) | | + +--------+ +--------+ + + Advance Directives + + + + + | Type | Date Recorded | Patient | Explanation | | | | Glaze Sprayer | | + + + + + | Power of | | | | | Religion Department Chair | | | | + + + [...]
--- OUTSIDE RECORDS SUMMARY | ~2019-09-24 | XMS | Encounter Summary ---
Demographics + + + | Address | [address] | | | [place] [address] | + + + | Home Phone [...] Team Providers + +------+ + | Care Placing Judge Name | Role | Phone | + +------+ + | Miquel Calhoun MD | PCP | | + +------+ + Encounter Details +--------+ + + + + | Date | Type | Department | Care Team | Description | +--------+ + + + + | 10/18/ | Hospital | [facility] | Shay Dietz | | | 2012 | Encounter | MED CTR XRAY [address] | [address] | | | | | [place] | [facility] [place] [place] | | | | | [place] [address] | [address] | | | | | [phone] | | | +--------+ + + + [...] [place] | | | | | | [address] | | | | | | | [...] At | + + + | [facility] Diagnostic Imaging | [facility] | | Department [address] [facility] [place] | [facility] | | [ rep [address]] [ rep [facility] | | st zip] Signed | - IMAGING | | | | | Patient Name: KORI HARMON | | | Physician: OMID : [id number] Age: 68 Sex: F Unit | | | #: [id number] Exam Date: 10/18/13 Location: | | | IMG.INV Report #: [id number] Page: | | | %(RAD)RES..mtdd.print.filter("pg") of %(RAD) | | | RES..mtdd.print.filter("tpg") | | | | | | Accession Number: [id number] | | | LUMBAR MEDIAL BRANCH BLOCKS, [...] Transcribed Date/Time: | | | 10/18/2013 19:14 Associate Creative Director: | | | <<Signature on File>> | | | Shay Mukherjee | | | MD J Luis10/22/13 0756 <Electronically signed by Shay Mukherjee | | | J Luis SALGADO> Shay Dietz MD 10/18/13 0577 | | | Associate Creative Director: Yudelka Plaiysufhbtmk10/19/13 3934 | | | PROVIDER,UNKNOWN | | + + + + + + + + | Performing | Address | City/State/Zipcode | Phone Number | | Organization | | | | + + + + + | [facility] | [address] | [place] | [phone] | | [facility] | | [address] | | | - IMAGING | | | | + + + + + documented in this encounter Visit Diagnoses Not on filedocumented in this encounter
--- OUTSIDE RECORDS SUMMARY | ~2019-09-24 | XMS | Encounter Summary ---
Demographics + + + | Address | [address] | | | [place] [address] | + + + | Home Phone [...] Providers + +------+ + | Care School Bus Mechanic Name | Role | Phone | + +------+ + | Concepción Gallardo NP | PCP | | + +------+ + Encounter Details +--------+ + + + + | Date | Type | Department | Care Team | Description | +--------+ + + + + | 07/17/ | Hospital | [facility] | Paty, | Intractable low back | | 2014 - | Encounter | [facility] | MD [address] | pain | | | | CLINICAL DECISION | [address] | | | 07/18/ | | [address] | [place] [address] | | | 2013 | | [place], [place] | [phone] | | | | | [address] | | | | | | [phone] | | | +--------+ + + + [...] Date of Service: 07/18/14 1131 Status: Signed Patient Service Coordinator: Bob Valverde DO (Physician) [facility] Service: Hospitalist Discharge Summary Date of [...] IV Fentanyl, a s well as oral [place] 10's, Zanaflex, Klonopin, and PT was ordered. [...] system. Multiplanar sequences according to a [facility] protocol were acquired without contrast. FINDINGS: There [...] Date of Service: 07/18/14 1310 Status: Signed Patient Service Coordinator: Nati Mena RN (Registered Nurse) Pt discharged [...] Notes by Nati Mena RN at 07/18/14 3643 Author: Nati Mena RN Service: (none) Author Type: Registered Nurse Filed: 07/18/14 7233 Date of Service: 07/18/14 1245 Status: Signed Patient Service Coordinator: Nati Mena RN (Registered Nurse) Pt to [...] Date of Service: 07/18/14 1245 Status: Addendum Patient Service Coordinator: Sj Bender PT (Physical Therapist) Related Notes: [...] Recommended (has FWW) Prior Function Level of Daniels Modified independent with functional mobility;Modified independent wi [...] G Codes Mobility: Walking & Moving Around: $G8942 Current Status : CK - At least 40% but less than 60% impaired, limited or restricted $G8974 Projected Goal Status : CK - At [...] 0549 Date of Service: 07/18/14509 Status: Signed Patient Service Coordinator: Dion Goldsmith RN (Registered Nurse) Pt awakened by crime laboratory analyst and states she needs to go to [...] 0436 Date of Service: 07/18/14409 Status: Signed Patient Service Coordinator: Dion Goldsmith RN (Registered Nurse) Pt's b/p slightly low. RADIOLOGY SPECIAL PROCEDURE TECH reports pt woke up to ask what her blood pressure is. Pt sleepin g now. Plan to recheck B/P in an hour. onver hiren Akosua, Provider Unknown - 07/18/2014 3:29 AM PDT Progress Notes by Sofi Sol RPH at 07/18/14328 Author: Sofi Sol RPH Service: (none) Author Type: Pharmacist Filed: 07/18/14328 Date of Service: 07/18/14328 Status: Signed Patient Service Coordinator: Sofi Sol RPH (Pharmacist) Clinical Pharmacy Note: [...] [place] | | | | | | [address] | | | | | | | [...] | | | Fingerstick | performed at [facility] | | LAB | | | | [address];[place], [place] | | | | | | [address] | | | | + + + [...] | | | Fingerstick | performed at [facility];[address] | | LAB | | | | [address];[place] | | | | | | [address] | | | | + + + [...] EXTERNAL | | | | performed at [facility], [address] | | LAB | | | | [address], | | | | | | [place] [address] | | | | + + + + + + | RED CELL | 4.16Comment: Testing | 3.70 - 5.10 | EXTERNAL | | | COUNT | performed at [facility], [address] | M/uL | LAB | | | | [address], | | | | | | [place] [address] | | | | + + + + + + | Hgb | 11.6Comment: Testing | 11.3 - 15.5 | EXTERNAL | | | | performed at [facility], [address] | g/dL | LAB | | | | [address], | | | | | | [place] [address] | | | | + + + + + + | Hematocrit, | 36.4Comment: Testing | 34.0 - 46.0 % | EXTERNAL | | | POC | performed at [facility], [address] | | LAB | | | | [address], | | | | | | [place] [address] | | | | + + + + + + | MCV | 87.5Comment: Testing | 80.0 - 100.0 fl | EXTERNAL | | | | performed at [facility], [address] | | LAB | | | | [address], | | | | | | [place] [address] | | | | + + + + + + | MCH | 27.9Comment: Testing | 27.0 - 34.0 pg | EXTERNAL | | | | performed at [facility], [address] | | LAB | | | | [address], | | | | | | [place] [address] | | | | + + + + + + | MCHC | 31.9 (L)Comment: Testing | 32.0 - 35.5 | EXTERNAL | | | | performed at [facility], [address] | g/dL | LAB | | | | [address], | | | | | | [place] [address] | | | | + + + + + + | RDW-CV | 43.8Comment: Testing | 37 - 53 fl | EXTERNAL | | | | performed at [facility], [address] | | LAB | | | | [address], | | | | | | [place] [address] | | | | + + + + + + | Platelet | 244Comment: Testing | 150 - 400 K/uL | EXTERNAL | | | Count | performed at [facility], [address] | | LAB | | | Plasma | [address], | | | | | | [place] [address] | | | | + + + + + + | MPV | 8.3Comment: Testing | fl | EXTERNAL | | | | performed at [facility], [address] | | LAB | | | | [address], | | | | | | [place] [address] | | | | + + + + + + | Differentia | AUTOMATEDComment: | | EXTERNAL | | | l Type | Testing performed at | | LAB | | | | [facility], [address] | | | | | | [place] | | | | | | [address] | | | | + + + + + + | % Segmented | 40.1Comment: Testing | % | EXTERNAL | | | | performed at [facility], [address] | | LAB | | | Neutrophils | [address], | | | | | | [place] [address] | | | | + + + + + + | % | 48.1Comment: Testing | % | EXTERNAL | | | Lymphocytes | performed at [facility], [address] | | LAB | | | | [address], | | | | | | [place] [address] | | | | + + + + + + | % Monocytes | 9.5Comment: Testing | % | EXTERNAL | | | | performed at [facility], [address] | | LAB | | | | [address], | | | | | | [place] [address] | | | | + + + + + + | % | 1.9Comment: Testing | % | EXTERNAL | | | Eosinophils | performed at [facility], [address] | | LAB | | | | [address], | | | | | | [place] [address] | | | | + + + + + + | % Basophils | 0.4Comment: Testing | % | EXTERNAL | | | | performed at [facility], [address] | | LAB | | | | [address], | | | | | | [place] [address] | | | | + + + + + + | Absolute | 2.0Comment: Testing | 1.9 - 7.4 K/uL | EXTERNAL | | | Segmented | performed at [facility], [address] | | LAB | | | Neutrophils | [address], | | | | | | [place] [address] | | | | + + + + + + | Absolute | 2.4Comment: Testing | 1.0 - 3.9 K/uL | EXTERNAL | | | Lymphocytes | performed at [facility], [address] | | LAB | | | | [address], | | | | | | [place] [address] | | | | + + + + + + | Absolute | 0.5Comment: Testing | 0 - 0.8 K/uL | EXTERNAL | | | Monocytes | performed at [facility], [address] | | LAB | | | | [address], | | | | | | [place] [address] | | | | + + + + + + | Absolute | 0.1Comment: Testing | 0 - 0.5 K/uL | EXTERNAL | | | Eosinophils | performed at [facility], [address] | | LAB | | | | [address], | | | | | | [place] [address] | | | | + + + + + + | Absolute | 0.0Comment: Testing | 0 - 0.1 K/uL | EXTERNAL | | | Basophils | performed at [facility], [address] | | LAB | | | | [address], | | | | | | [place] [address] | | | | + + + [...] | | | | | [place] [address] | | | | + + + [...] EXTERNAL | | | | performed at [facility], [address] | | LAB | | | | [address], | | | | | | [place] [address] | | | | + + + [...] | | | | | [place] [address] | | | | + + + [...] + + | Hemoglobin | 5.2Comment: The Macedonian | 4.0 - 6.0 % | EXTERNAL [...] | | | | | performed at [facility], [address] | | | | | [address], | | | | | | [place] [address] | | | | + + + [...] | | | | | performed at [facility], [address] | | | | | | [address], | | | | | | [place] [address] | | | | + + + [...] | | | Direct | performed at [facility], [address] | | LAB | | | | [address], | | | | | | [place] [address] | | | | + + + [...] | | | | | [place] [address] | | | | + + + + + + | K | 4.0Comment: Testing | 3.5 - 4.9 | EXTERNAL | | | | performed at [facility], [address] | mmol/L | LAB | | | | [address], | | | | | | [place] [address] | | | | + + + + + + | Cl | 106Comment: Testing | 99 - 109 mmol/L | EXTERNAL | | | | performed at [facility], [address] | | LAB | | | | [address], | | | | | | [place] [address] | | | | + + + + + + | CO2 | 28Comment: Testing | 23 - 32 mmol/L | EXTERNAL | | | | performed at [facility], [address] | | LAB | | | | [address], | | | | | | [place] [address] | | | | + + + + + + | Anion Gap | 8Comment: Testing | 5 - 20 mmol/L | EXTERNAL | | | | performed at [facility], [address] | | LAB | | | | [address], | | | | | | [place] [address] | | | | + + + + + + | Glucose, | 82Comment: Testing | 65 - 99 mg/dL | EXTERNAL | | | Fasting | performed at [facility], [address] | | LAB | | | | [address], | | | | | | [place] [address] | | | | + + + + + + | BUN | 18Comment: Testing | 8 - 25 mg/dL | EXTERNAL | | | | performed at [facility], [address] | | LAB | | | | [address], | | | | | | [place] [address] | | | | + + + + + + | Creatinine | 0.61Comment: Testing | 0.50 - 1.00 | EXTERNAL | | | | performed at [facility], [address] | mg/dL | LAB | | | | [address], | | | | | | [place] [address] | | | | + + + + + + | BUN/Creatin | 30Comment: Testing | | EXTERNAL | | | ine Ratio | performed at [facility], [address] | | LAB | | | | [address], | | | | | | [place] [address] | | | | + + + + + + | Calcium | 8.7Comment: Testing | 8.5 - 10.2 | EXTERNAL | | | | performed at [facility], [address] | mg/dL | LAB | | | | [address], | | | | | | [place] [address] | | | | + + + + + + | Protein, | 5.9 (L)Comment: Testing | 6.3 - 8.2 g/dL | EXTERNAL | | | Total | performed at [facility], [address] | | LAB | | | | [address], | | | | | | [place] [address] | | | | + + + + + + | Albumin | 3.7Comment: Testing | 3.3 - 4.8 g/dL | EXTERNAL | | | | performed at [facility], [address] | | LAB | | | | [address], | | | | | | [place] [address] | | | | + + + + + + | Globulin | 2.2Comment: Testing | 1.3 - 4.9 g/dL | EXTERNAL | | | | performed at [facility], [address] | | LAB | | | | [address], | | | | | | [place] [address] | | | | + + + + + + | A/G Ratio | 1.7Comment: Testing | 1.0 - 2.4 | EXTERNAL | | | | performed at [facility], [address] | | LAB | | | | [address], | | | | | | [place] [address] | | | | + + + + + + | Bilirubin | 0.3Comment: Testing | 0.1 - 1.5 mg/dL | EXTERNAL | | | Total | performed at [facility], [address] | | LAB | | | | [address], | | | | | | [place] [address] | | | | + + + + + + | ALP, | 86Comment: Testing | 35 - 115 U/L | EXTERNAL | | | External | performed at [facility], [address] | | LAB | | | | [address], | | | | | | [place] [address] | | | | + + + + + + | AST | 162 (H)Comment: Testing | 10 - 45 U/L | EXTERNAL | | | | performed at [facility], [address] | | LAB | | | | [address], | | | | | | [place] [address] | | | | + + + + + + | ALT | 112 (H)Comment: Testing | 10 - 65 U/L | EXTERNAL | | | | performed at [facility], [address] | | LAB | | | | [address], | | | | | | [place] [address] | | | | + + + [...] | | | | | | at [facility], [address] | | | | | | [address], | | | | | | [place] [address] | | | | + + + [...] | | | Fingerstick | performed at [facility];[address] | | LAB | | | | [address];[place] | | | | | | [address] | | | | + + + [...]
--- OUTSIDE RECORDS SUMMARY | ~2019-09-24 | XMS | Encounter Summary ---
Demographics + + + | Address | [address] | | | [place] [address] | + + + | Home Phone [...] Team Providers + +------+ + | Care Opal Polisher Name | Role | Phone | [...] | Chest | Referring | [place] [address] | | | | | pressure | Provider Per | [address] | | | | | Procedures | Patient NO | [address] | | | | | [place] NEW | REFERRING | [place], [place] | | | | | PATIENT | PROVIDER PER | [address] Phone: | | | | | LEVEL V SC | PT | [phone] | | | | | OFFICE/OUTPT | | Fax: | | | | | | | [phone] | | | | | VISIT,EST,LE | | | | | | | GINA III SC | | | | | | | OFFICE/OUTPT | | | | | | | | | | | | | | VISIT,EST,LE | | | | | | | VL IV SC | | | | | | | [...] | 2015 | Visit | at [facility] [address] | [address] | unspecified type | | | | [place] Mailcode: | [address] [facility], | (Primary Dx); | | | | [address] | [place] [address] | Palpitations | | | | Health [facility]aling, | [phone] | | | | | [facility] | | | | | | floor [place], [place] | | | | | | [address] | | | | | | [phone] | | | +--------+---------+ + + + [...] per Dr. Fuchs's note. Tiago Blake DO Farmworker [employer]estock Clinical transportation security screener/ Division of Cardiovascular Medicine Airam Nicole Md - 03/09/2016 3:27 PM PDT [facility] General Cardiology New Patient Evaluation Patient [...] She was then transf erred to [facility] in [place] where she was put into the ICU [...] every couple of weeks. She comes to [facility] today because she wants [...] + + | [facility] | [id number] | [place], [place] | | | | [address] | [address] | | + + + + + documented in this encounter Visit Diagnoses + + | Diagnosis | + + | Chest pain, unspecified type - Primary | + + | Palpitations | + + documented in this encounter
--- OUTSIDE RECORDS SUMMARY | ~2019-09-24 | XMS | Encounter Summary ---
Demographics + + + | Address | [address] | | | [place] [address] | + + + | Home Phone [...] Team Providers + +------+ + | Care Circuit Walker Name | Role | Phone | + [...] + + | 09/04/ | Telephone | [facility] | Shay Dietz | Appointment | | 2012 | | PHYSIATRY [address] | | | | | [place], | [address] [place], [place] | | | | | [place] [address] | [id number] | | | | | [phone] | | | +--------+ + + + [...] DEWEY | | | | | | 201517 | | | | | | | | +--------+---------+ + + + documented as of this encounter Visit Diagnoses Not on filedocumented in this encounter"
--- OUTSIDE RECORDS SUMMARY | ~2019-09-24 | XMS | Encounter Summary ---
Demographics + + + | Address | [address] | | | [place] [address] | + + + | Home Phone [...] Team Providers + +------+ + | Care Platen Press Operator Name | Role | Phone | + +------+ + PCP | Unavailable | + +------+ + Encounter Details +--------+ + + + + | Date | Type | Department | Care Team | Description | +--------+ + + + + | 10/06/ | [facility] | [facility] | Robert Perales | | | 2010 | Encounter | MED CTR SLEEP | MD Eric Rivera [place] | | | | | CENTER [address] | [address] [place] | | | | | [place], [place] | [place] [address] | | | | | [address] | [phone] | | | | | [phone] | | | +--------+ + + + [...] [place] | | | | | | [address] | | | | | | | | +--------+---------+ + + + documented as of this encounter Visit Diagnoses Not on filedocumented in this encounter"
--- OUTSIDE RECORDS SUMMARY | ~2019-09-24 | XMS | Encounter Summary ---
Demographics + + + | Address | [address] | | | [place] [address] | + + + | Home Phone [...] + +------+ + | Care Motor Vehicle Examiner Name | Role | Phone | [...] Chronic low | [place], | [address] | | | | | back pain | Shay Mukherjee MD | [place], | | | | | Lumbar | [address] | [place] | | | | | radiculopath | [place] | [address] | | | | | y | [place], [place] | Phone: | | | | | Procedures | [address] | [phone] | | | | | MRI Lumbar | Phone: | Fax: | | | | | Spine wo | [phone] | [phone] | | | | | Contrast | Fax: | | | | | | MRI | [phone] | | +--------+--------+ + + + + [...] Chronic low | [place], | [address] | | | | | back pain | Shay Mukherjee MD | [place], | | | | | Lumbar | [address] | [place] | | | | | radiculopath | [place] | [address] | | | | | y | [place], [place] | Phone: | | | | | Procedures | [address] | [phone] | | | | | MRI Lumbar | Phone: | Fax: | | | | | Spine wo | [phone] | [phone] | | | | | Contrast | Fax: | | | | | | MRI | [phone] | | +--------+--------+ + + + + Encounter Details +--------+ + + + + | Date | Type | Department | Care Team | Description | +--------+ + + + + | 04/12/ | Hospital | [facility] | Shay Dietz | Chronic low back | | 2013 | Encounter | MED CTR MRI [address] | T, [address] | pain; Lumbar | | | | [place], | [place] | radiculopathy | | | | [place] [address] | [address] | | | | | [phone] | | | +--------+ + + + [...] [place] | | | | | | [address] | | | | | | | [...] + | MISCELLANEOUS LAB | | | [phone] | + +---------+ + + | MISCELANIOUS LAB | | | [phone] | + +---------+ + + documented in this encounter Visit Diagnoses + + | Diagnosis | + + | Chronic low back pain Lumbago | + + | Lumbar radiculopathy Thoracic or lumbosacral neuritis or radiculitis, unspecified | + + documented in this encounter"
--- OUTSIDE RECORDS SUMMARY | ~2019-09-24 | XMS | Encounter Summary ---
Demographics + + + | Address | [address] | | | [place] [address] | + + + | Home Phone [...] Providers + +------+ + | Care Process Steward Name | Role | Phone | [...] | | | stenosis | B | [address] | | | | | | [place], [place] | Phone: | | | | | | [address] | [phone] | | | | | | Phone: | Fax: | | | | | | [phone] | [phone] | | | | | | Fax: | | | | | | | [phone] | | + +--------+ + + + + Encounter Details +--------+---------+ + + + | Date | Type | Department | Care Team | Description | +--------+---------+ + + + | 06/18/ | Office | [facility] | Denys Sibley, | SACROILIITIS | | 2018 | Visit | [facility] | DO [address] | (Primary Dx); | | | | [address]OLOGY [address] [place] [place] | 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 Talk to your specialty manufacturing supervisor regarding the use of this medicine in children. While this drug m ay be prescribed for children as young as newborns for selected conditions, precautions do a pply. What side effects may I notice from receiving this medicine? Side effects that you should report to your doctor or health resident care director as soon as p ossible: allergic reactions like skin rash, itching or hives, swelling of the face, lips, or tong ue breathing problems fast, irregular heartbeat high blood pressure pain that was controlled by narcotic pain medicine seizures Side effects that usually do not require medical attention (report to your doctor or health resident care director if they continue or are bothersome): anxious [...] phone number of your doctor or health resident care director and local hospital ready. You may need to have additional doses of this medicine. Each nasal spray contains a single dose. Some emergencies may require additional doses. After use, bring the treated person to the nearest hospital or call 911. Make sure the [facility] health resident care director knows that the person has received an [...] repair Arthralgia Asthma Asthma Cancer ([facility]) 2004 breast Cerebrovascular accident (CVA) ([facility]) no per pt Chronic back pain Chronic back pain Concussion 07/2015 Preceeded by seizure Constipation COPD (chronic obstructive pulmonary disease) ([facility]) Degenerative disc disease Depression Depression Diabetes [...] of lumbar spine 04/17/2014 Seizure ([facility]) one due to meds, two due [...] to physical therapy, mass age therapy, acupuncture, post anesthesia care unit nurse, along with recommended psychological counseling , [...] regarding this and or current official gov [facility] approved disposal sites. Continue current medication regime with these changes and/ or additions :refill her fenta nyl patch 25 by grams applied to the anterior chest wall q72 hours, and Norco7.5/325 one po q6 hours prn pain Patient understands and is in full agreement with the above plan, Will return to office in 4 weeks, [facility] was consulted and appears appropriate, Urine [...] noted in men and women. [facility] men will suffer erectile dysfunction with [...] and complications with the passage of time. product manager use is also associated with depressions, [...] [place] | | | | | | [address] | | | | | | | | +--------+---------+ + + + + +------+--------+ + + | Name | Type | Priori | Associated Diagnoses | Order Schedule | | | | ty | | | + +------+--------+ + + | Drugs of Abuse, | Lab | Routin | custodial current | Expected: | | Panel, Pain [...] pain Backache, unspecified | + + | product manager current use of opiate analgesic Encounter for long-term (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 of | | other medications | + + documented in this encounter
--- OUTSIDE RECORDS SUMMARY | ~2019-09-24 | XMS | Encounter Summary ---
Demographics + + + | Address | [address] | | | [place] [address] | + + + | Home Phone [...] Team Providers + +------+ + | Care Insulation Cutter Name | Role | Phone | [...] + + | 07/05/ | Telephone | [facility] | Maykel Hutchins MD | Advice Only; Other | | 2019 | | NEUROSCIENCE CENTER | [address] | (inform office) | | | | ORTHOPEDIC SPINE | HAYLEY [place]Z | | | | | [address] [place] | [place] [address] | | | | | [place] | [phone] | | | | | [address] | | | | | | [phone] | | | +--------+ + + + [...] [place] | | | | | | [address] | | | | | | | [...]
--- OUTSIDE RECORDS SUMMARY | ~2019-09-24 | XMS | Encounter Summary ---
Demographics + + + | Address | [address] | | | [place] [address] | + + + | Home Phone [...] Team Providers + +------+ + | Care Long Line Teamster Name | Role | Phone | + [...] [address] | | | | | [place], | [address] [place], | | | | | [place] [address] | [place] [address] | | | | | [phone] | [phone] | | | | | | | [...] [place] | | | | | | [address] | | | | | | | | +--------+---------+ + + + documented as of this encounter Visit Diagnoses Not on filedocumented in this encounter"
--- OUTSIDE RECORDS SUMMARY | ~2019-09-24 | XMS | Encounter Summary ---
Demographics + + + | Address | [address] | | | [place] [address] | + + + | Home Phone [...] Team Providers + +------+ + | Care Global Account Director Name | Role | Phone | + +------+ + PCP | Unavailable | + +------+ + Encounter Details +--------+ + + + + | Date | Type | Department | Care Team | Description | +--------+ + + + + | 02/22/ | Hospital | [facility] | Ken Craft | | | 2005 - | Encounter | HEART MED CTR BEH | MD Masha [address] | | | | | TH ADULT [address] [place], [place] | | | 02/28/ | | [address] [place], [place] | [address] | | | 2005 | | [address] | | | | | | [phone] | Samantha Estes | | | | | | MD Jewel [address] | | | | | | [address] | | | | | | [place] [address] | | | | | | | [...] [place] | | | | | | [address] | | | | | | | | +--------+---------+ + + + documented as of this encounter Visit Diagnoses Not on filedocumented in this encounter"
--- OUTSIDE RECORDS SUMMARY | ~2019-09-24 | XMS | Encounter Summary ---
Demographics + + + | Address | [address] | | | [place] [address] | + + + | Home Phone [...] + + | Author | [facility] (Historical as of | | | 06-16-19) | + + + | Organization | [facility] (Historical as of | [...] Providers + +------+ + | Care Pipe Joints Supervisor Name | Role | Phone | + +------+ + | Romy De La Paz MD | PCP | | + +------+ + Encounter Details +--------+ + + + + | Date | Type | Department | Care Team | Description | +--------+ + + + + | 08/03/ | Procedure | [facility] | | | | 2019 | Pass | Medical Center | | | | | | Operating Room [address] | | | | | | [facility] | | | | | | [place] [address] | | | | | | [phone] | | | +--------+ + + + [...]
--- OUTSIDE RECORDS SUMMARY | ~2019-09-24 | XMS | Encounter Summary ---
Demographics + + + | Address | [address] | | | [place] [address] | + + + | Home Phone [...] Providers + +------+ + | Care Inspector And Clipper Name | Role | Phone | + [...] | | | stenosis | B | [address] | | | | | | [place], [place] | Phone: | | | | | | [address] | [phone] | | | | | | Phone: | Fax: | | | | | | [phone] | [phone] | | | | | | Fax: | | | | | | | [phone] | | + +--------+ + + + + Encounter Details +--------+---------+ + + + | Date | Type | Department | Care Team | Description | +--------+---------+ + + + | 08/16/ Office | [facility] | Denys Sibley, | S/P insertion of | | 2018 | Visit | [facility] | DO [address] | spinal cord | | | | [address]Y [address] | [address] [place] | stimulator (Primary | | | | [address] [address] | [address] | Dx); Spinal stenosis | | | | [place], [place] | | of lumbosacral | | | | [address] | | region; Intractable | | | | [phone] | | back pain; Encounter | | [...] anterior chest wall every 72 hours, and Caraway 7.5/325 1 p.o. every 6 hours as [...] reflux disease Acute renal failure ([facility]) April 2013 Adverse effect of anesthesia hx hallucinations after anesthesia x 3 yrs ago. Anesthesia hallucinated after bladder repair Arthralgia Arthritis Asthma Asthma Back pain Cancer ([facility]) 2004 breast Cataract Cerebrovascular accident (CVA) ([facility]) no per pt Chronic back [...] Screen 08/03/2019 NEGATIVE Final BB BAND 08/03/2019 [id number] Final BB BAND 08/03/2019 Testing performed at [facility];[address] [place] [address];[place] [address] Final Glucose, POC 08/03/2019 77 65 - [...] Final Antibody Screen 07/18/2019 Testing performed at [facility];[address] [place] [address];[place] [address] Final SOURCE: 07/18/2019 NARES(NOSE) Final Result 07/18/2019 [...] to physical therapy, mass age therapy, acupuncture, manager home healthcare, along with recommended psychological counseling , either privately, or in group sessions offered by private care individuals, community serv ices, or methodist organizations. Appropriate referrals were made at patient [...] every 72 hours con tinue with the Caraway 10/325 1 p.o. every 6 hours as needed breakthrough pain and Robaxin 500 mg every 6 hours as needed muscle spasms Patient understands and is in full agreement with the above plan, Will return to office in 4 weeks, [facility] was consulted and appears appropriate, Urine [...] [place] | | | | | | [address] | | | | | | | [...]
--- OUTSIDE RECORDS SUMMARY | ~2019-09-24 | XMS | Encounter Summary ---
Demographics + + + | Address | [address] | | | [place] [address] | + + + | Home Phone [...] Providers + +------+ + | Care Mold Mover Name | Role | Phone | [...] | Telephone | [facility] | Nick Martinez, | Other (Back Brace) | | 2017 | | PHYSIATRY [address] | PA-C [address] | | | | | [place], | [address] [place] | | | | | [place] [address] | [place] [address] | | | | | [phone] | [phone] | | | | | | | [...] [place] | | | | | | [address] | | | | | | | | +--------+---------+ + + + documented as of this encounter Visit Diagnoses Not on filedocumented in this encounter"
--- OUTSIDE RECORDS SUMMARY | ~2019-09-24 | XMS | Encounter Summary ---
Demographics + + + | Address | [address] | | | [place] [address] | + + + | Home Phone [...] Team Providers + +------+ + | Care Recreation Leader Name | Role | Phone | [...] | | [address] | [place] [address] | Foraminal stenosis | | | | [place], [place] | [phone] | of lumbar region - | | | | [address] | | left L5-S1; DDD | | | | [phone] | | (degenerative disc | | | [...] from t manolo phillips. Sj Valdes M.D. [address] [place] [address], [address] [place] [address] FAX: NEUROSURGERY HISTORY AND PHYSICAL EXAMINATION CHIEF [...] has no apparent deficits with short or assisted memory. MOTOR EXAM: (5 IS NORMAL) * Indicates pain limited MUSCLE/ MOVEMENT: RIGHT LEFT Deltoids 5 4+ Biceps 5 5 Triceps 5 5 Wrist Flexion 5 5 Wrist Extension 5 5 Median Intrinsics 5 4 Ulnar Intrinsics 5 4 Investor Relations Specialist Strength 5 4 Hip Flexion 5 4 [...] | | | | | | [address] [place], [place] | | | | | | [address] | | | | | | | [...]
--- OUTSIDE RECORDS SUMMARY | ~2019-09-24 | XMS | Encounter Summary ---
Demographics + + + | Address | [address] | | | [place] [address] | + + + | Home Phone [...] Team Providers + +------+ + | Care Language Assistant Name | Role | Phone | [...] as of this encounter Discharge Summaries Interface, Staff Registered Nurse In - 08/03/2006 2:03 AM PDT [id number]/ [id number] ROSANA Suarez [id number] Admission Date: 06/26/2006 Discharge Date: 06/30/2006 Staff [...] up with her primary care doctor in [place] to get lab followup within the next [...] psychiatrist, Dr. Pham; his phone number is [phone]. She is to make a followup appointment with him within the next week. The patient is also to follow up with Dr. Kel Young, he is located as well in [place], [place], and is associated with [facility]. She is to follow up with him for repeat electrolytes including potassium, magnesium, and phosphorus within the next several days. Monroe Disla M.D. Sherita [place] M.D., M.P.H. / [id number] / [id number] / [id number] / [id number] cc: * Dr. Pham [facility] [place] FAX: [phone] Kel Young M.D. Electronically signed by [place]ita [place] 08-02-2006 11:01:13 AM documented i n this encounter Plan of Treatment Not on filedocumented as of this encounter Visit Diagnoses Not on filedocumented in this encounter"
--- OUTSIDE RECORDS SUMMARY | ~2019-09-24 | XMS | Encounter Summary ---
Demographics + + + | Address | [address] | | | [place] [address] | + + + | Home Phone [...] | + + +---------+ + | Nathalia Wenistein | ECON | Unknown | | + + +---------+ + Care Team Providers + +------+ + | Care Facility Operations Manager Name | Role | Phone | + +------+ + PCP | Unavailable | + +------+ + Encounter Details +--------+ + + + + | Date | Type | Department | Care Team | Description | +--------+ + + + + | 09/22/ | Hospital | [facility] | Shay Dietz | | | 2010 | Encounter | MED CTR XRAY [address] | [address] | | | | | [place] | ST [place], [place] | | | | | [place] [address] | [address] | | | | | [phone] | | | +--------+ + + + [...] [place] | | | | | | [address] | | | | | | | [...] Performed At | + + + | [facility] Diagnostic Imaging Department | [facility] | | [address] [facility] | [facility] | | LUMBAR FACET INJECTIONS, | DIAG [...] Transcribed Date/Time: | | | 09/22/2011 18:07 Manager Unit: <Electronically Signed | | | by Shay Dietz MD> 09/27/11 1035 | | + + + + + | Procedure Note | + + | Junior, Rad Conversion - 12/07/2013 4:17 PM [facility] | | Diagnostic Imaging Department [address] [place] [address] | | LUMBAR FACET INJECTIONS, 09/22/2011 CLINICAL [...] 17:09 | |Transcribed Date/Time: 09/22/2011 18:07 | |Manager Unit: | |<Electronically Signed by Shay Dietz MD> [...]
--- OUTSIDE RECORDS SUMMARY | ~2019-09-24 | XMS | Encounter Summary ---
Demographics + + + | Address | [address] | | | [place] [address] | + + + | Home Phone [...] Providers + +------+ + | Care Project Developer Name | Role | Phone | [...] [address] | | | | | [place], | [address] [place] | | | | | [place] [address] | [place] [address] | | | | | [phone] | [phone] | | | | | | | [...] [place] | | | | | | [address] | | | | | | | | +--------+---------+ + + + documented as of this encounter Visit Diagnoses Not on filedocumented in this encounter"
--- OUTSIDE RECORDS SUMMARY | ~2019-09-24 | XMS | Encounter Summary ---
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 Removed Ranitidine and Myrbetriq from med list as these have not been filled in the last 3 months. Please see ALUMINUM BOAT ASSEMBLY SUPERVISOR med list for updated medication list. Electronically [...] [place] | | | | | | [id number] | | | | | | | [...] L?MRN: | | | | | | [id number] | | | [id number] | | | ecurit | | | [...] | | | St. | | | [place] | | | y | | | [...] | | | St. | | | [place] | | | y H. | | [...] | | | St. | | | [place] | | | y H. | | [...] | | | St. | | | [place] | | | y H. | | [...] | | | St. | | | [place] | | | y H. | | [...] | | | St. | | | [place] | | | y H. | | [...] | | | St. | | | [place] | | | y H. | | [...] | | | St. | | | [place] | | | y | | | [...] | | | L | | | APARTMENT LEASING MANAGER | | | , MD 2 | [...] + + | [facility] | [address] | [place] [address] | [phone] | | HOSPITAL LABORATORY | | | [...] + + | [facility] | [address] | [place] [address] | [phone] | | HOSPITAL LABORATORY | | | [...] | | HOSPITAL | | | | Antipyretic/Ywtluntaq63. | | LABORATORY | | | | [...] + + | [facility] | [address] | [place] [address] | [phone] | | HOSPITAL LABORATORY | | | [...] + + | [facility] | [address] | [place] [address] | [phone] | | HOSPITAL LABORATORY | | | [...] | mL/min/1.73m2 | [facility] | | | [facility] | RATE,ESTIMATED | | HOSPITAL | | | | mL/min/1.34r2Exed than | | LABORATORY | | | [...] + + | [facility] | [address] | [place] [address] | [phone] | | HOSPITAL LABORATORY | | | [...] | 0 - 0 per 100 | [facility] | | | | | WBC's | [...] + + | [facility] | [address] | [place] [address] | [phone] | | HOSPITAL LABORATORY | | | [...] + + | [facility] | [address] | [place] [address] | [phone] | | HOSPITAL LABORATORY | | | [...] - 1.030 | [facility] | | | [place] | | | [facility] | | | [...] + + | [facility] | [address] | [place] [address] | [phone] | | HOSPITAL LABORATORY | | | [...] the attending | LABORATORY | | physician. Oifr-eld-mjvjanh drugs may cross react with some methods. [...] + + | [facility] | [address] | [place] [address] | [phone] | | HOSPITAL LABORATORY | | | [...]
--- OUTSIDE RECORDS SUMMARY | ~2019-09-24 | XMS | Encounter Summary ---
Demographics + + + | Address | [address] | | | [place] [address] | + + + | Home Phone [...] Providers + +------+ + | Care Accountant Cost Name | Role | Phone | + [...] + + | 07/24/ | Telephone | [facility] | Maykel Hutchins MD | Pre-op Question | | 2019 | | NEUROSCIENCE CENTER | [address] | | | | | ORTHOPEDIC SPINE | [place] | | | | | [address] [place] | [place] [address] | | | | | [place] | [phone] | | | | | [address] | | | | | | [phone] | | | +--------+ + + + [...] [place] | | | | | | [address] | | | | | | | | +--------+---------+ + + + documented as of this encounter Visit Diagnoses Not on filedocumented in this encounter"
--- OUTSIDE RECORDS SUMMARY | ~2019-09-24 | XMS | Encounter Summary ---
Demographics + + + | Address | [address] | | | [place] [address] | + + + | Home Phone [...] Providers + +------+ + | Care Business Banking Sales Assistant Name | Role | Phone | + +------+ + | Concepción Gallardo NP | PCP | | + +------+ + Encounter Details +--------+ + + + + | Date | Type | Department | Care Team | Description | +--------+ + + + + | 08/05/ | Hospital | [facility] | Shirahumble, | Foraminal stenosis | | 2013 | Encounter | MED CTR XRAY [address] | [address] | of lumbar region - | | | | [place] | [place], | left L5-S1; Left | | | | [place] [address] | [place] [address] | lumbar | | | | [phone] | [phone] | radiculopathy; DDD | | | | | | (degenerative disc | | | | | Laboratory Apparatus [place], [place] | disease), lumbar; | | | [...] [place] | | | | | | [address] | | | | | | | [...] for a [facility] | | fluoroscopically-guided left L5-S1 transforaminal epidural [...] | + + + + + | [facility] | [address] | [place] | [phone] | | [facility] | | [address] | | | - IMAGING | | [...]
--- OUTSIDE RECORDS SUMMARY | ~2019-09-24 | XMS | Encounter Summary ---
Demographics + + + | Address | [address] | | | [place] [address] | + + + | Home Phone [...] Team Providers + +------+ + | Care Department Head College Or University Name | Role | Phone | + [...] + + | 07/05/ | Telephone | [facility] | Maykel Hutchins MD | Advice Only; Other | | 2019 | | NEUROSCIENCE CENTER | [address] | (inform office) | | | | ORTHOPEDIC SPINE | [place] | | | | | [address] [place] | [place] [address] | | | | | [place] | [phone] | | | | | [address] | | | | | | [phone] | | | +--------+ + + + [...] [place] | | | | | | [address] | | | | | | | [...]
--- OUTSIDE RECORDS SUMMARY | ~2019-09-24 | XMS | Encounter Summary ---
Demographics + + + | Address | [address] | | | [place] [address] | + + + | Home Phone [...] Providers + +------+ + | Care Work Station Support Specialist Name | Role | Phone | + +------+ + | Wendi Aiken | PCP | | + +------+ + Encounter Details +--------+ + + + + | Date | Type | Department | Care Team | Description | +--------+ + + + + | 05/21/ | Orders Only | [facility] | Provider, | | | 2019 | | SYSTEM GENERIC OP | MD [address] | | | | | [address] | [place] | | | | | [address] [place], [place] | [place] [address] | | | | | [address] | | | | | | [phone] | | | +--------+ + + + [...] [place] | | | | | | [id number] | | | | | | | | +--------+---------+ + + + documented as of this encounter Visit Diagnoses Not on filedocumented in this encounter"
--- OUTSIDE RECORDS SUMMARY | ~2019-09-24 | XMS | Encounter Summary ---
Demographics + + + | Address | [address] | | | [place] [address] | + + + | Home Phone [...] Providers + +------+ + | Care Can Labeler Name | Role | Phone | + [...]
--- OUTSIDE RECORDS SUMMARY | ~2019-09-24 | XMS | Encounter Summary ---
Demographics + + + | Address | [address] | | | [place] [address] | + + + | Home Phone [...] Team Providers + +------+ + | Care Psych Assistant Name | Role | Phone | [...] + + | 08/16/ | Office | [facility] | Gabi Guzman | S/P insertion of | | 2019 | Visit | [facility] | [address] | spinal cord | | | | ORTHOPEDIC SPINE | [address] | stimulator (Primary | | | | [address] | [place] [address] | Dx); DDD | | | | [place], [place] | [phone] | (degenerative disc | | | | [address] | | disease), lumbar; | | | | [phone] | | Facet arthritis of | | [...] accompanied by her friend, and the Akhtar sales representative health insurance for the spinal cord stimulator, f or [...] non-medical: Not on file Occupational History Occupation: [employer] Tobacco Use Smoking status: Never Smoker Smokeless [...] KYPHOPLASTY; Surgeon: Alfredo Casillas DO; Location: [facility] MAIN OR; Service: Pa in Management; Laterality: N/A; L5 FRACTURE SURGERY ANKLE HERNIA REPAIR HYSTERECTOMY HYSTERECTOMY LAMINECTOMY N/A 08/03/2019 Procedure: LAMINOTOMY THORACIC / LUMBAR W/ PLACEMENT SPINAL CORD STIMULATOR; Surgeon: Suly Hutchins MD; Location: [facility] MAIN OR OTHER [...] pain Cancer ([facility]) 2005 breast Cataract Cerebrovascular accident (CVA) ([facility]) diet controlled Diabetes type 2, controlled (HCC) [...] [place] | | | | | | [address] | | | | | | | [...]
--- OUTSIDE RECORDS SUMMARY | ~2019-09-24 | XMS | Encounter Summary ---
Demographics + + + | Address | [address] | | | [place] [address] | + + + | Home Phone [...] Team Providers + +------+ + | Care Spike Machine Heater Name | Role | Phone | + [...] pain log reponse) | | | | [place], | [place] | | | | | [place] [address] | [address] | | | | | [phone] | | | +--------+ + + + [...] [place] | | | | | | [address] | | | | | | | | +--------+---------+ + + + documented as of this encounter Visit Diagnoses Not on filedocumented in this encounter"
--- OUTSIDE RECORDS SUMMARY | ~2019-09-24 | XMS | Encounter Summary ---
Demographics + + + | Address | [address] | | | [place] [address] | + + + | Home Phone [...] Team Providers + +------+ + | Care Bicycle Inspector Name | Role | Phone | [...] [address] | | | | | [place], | [place], [place] | | | | | [place] [address] | [address] | | | | | [phone] | | | +--------+ + + + [...] [place] | | | | | | [address] | | | | | | | | +--------+---------+ + + + documented as of this encounter Visit Diagnoses Not on filedocumented in this encounter"
--- OUTSIDE RECORDS SUMMARY | ~2019-09-24 | XMS | Encounter Summary ---
Demographics + + + | Address | [address] | | | [place] [address] | + + + | Home Phone [...] Providers + +------+ + | Care Fitness Instructor Name | Role | Phone | + +------+ + | Oxana Nye | PCP | | + +------+ + Encounter Details +--------+ + + + + | Date | Type | Department | Care Team | Description | +--------+ + + + + | 07/06/ | Hospital | [facility] | Spenser, | 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 | MED CTR XRAY [address] | [address] | lumbar region | | | | [place] | [address], | without myelopathy | | | | [place] [address] | [place] [address] | or radiculopathy | | | | [phone] | [phone] | (Primary Dx); | | | | | | Chronic right-sided | | | | | Outreach Educator, [facility] | low back pain with | [...] [place] | | | | | | [address] | | | | | | | [...] Diagnosis: Lumbar Spondylosis ICD-10 Code M47.816 [facility] | | Joanne presents to the fluoroscopy suite for | [facility] | | fluoroscopically-guided bilateral L5-S1 facet [...] ST. | [address] | [place] | [phone] | | [facility] | | [address] | | | - IMAGING | | [...] | | | | | Other, ONCE, [facility] 07/06/16 at 1115, | | AM PDT | | | | | For 1 dose, Radiology | | | | | | + +--------+ +-------+------+------+ +---+---+ | | | +---+---+ + +-------+ +------+---+---+ | lidocaine 1% injection 1 mL 1 | Given | 07/06/20 | 1 mL | | | | mL, Other, ONCE, [facility] 07/06/16 at | | 16 11:03 | [...]
--- OUTSIDE RECORDS SUMMARY | ~2019-09-24 | XMS | Encounter Summary ---
Demographics + + + | Address | [address] | | | [place] [address] | + + + | Home Phone [...] Team Providers + +------+ + | Care Postage Machine Operator Name | Role | Phone [...] [address] | | | | | [place], | [place], [place] | | | | | [place] [address] | [address] | | | | | [phone] | | | +--------+ + + + [...] [place] | | | | | | [address] | | | | | | | | +--------+---------+ + + + documented as of this encounter Visit Diagnoses Not on filedocumented in this encounter"
--- OUTSIDE RECORDS SUMMARY | ~2019-09-24 | XMS | Encounter Summary ---
Demographics + + + | Address | [address] | | | [place] [address] | + + + | Home Phone [...] + +------+ + | Care Motion Picture Film Examiner Name | Role | Phone | + +------+ + | Miquel Calhoun MD | PCP | | + +------+ + Encounter Details +--------+ + + + + | Date | Type | Department | Care Team | Description | +--------+ + + + + | 09/13/ | [facility] | [facility] | Khushbu Cortez, | | | 2012 | | [facility] | GRAVURE PRESS OPERATOR [place], [place] | | | | | R[address] | [address] | | | | | [address] | | | | | | Aravind Hannon | | | | | | [place], [place] | | | | | | [address] | | | | | | [phone] | | | +--------+ + + + [...]
--- OUTSIDE RECORDS SUMMARY | ~2019-09-24 | XMS | Encounter Summary ---
Demographics + + + | Address | [address] | | | [place] [address] | + + + | Home Phone [...] Team Providers + +------+ + | Care Certified Medication Aide Name | Role | Phone | + +------+ + PCP | Unavailable | + +------+ + Encounter Details +--------+ + + + + | Date | Type | Department | Care Team | Description | +--------+ + + + + | 12/08/ | Hospital | [facility] | | | | 1994 - | Encounter | MED CTR GENERIC PSY | | | | | | CONV DEPT [address] | | | | 12/18/ | | [place], | | | | 1994 | | [place] [address] | | | | | | [phone] | | | +--------+ + + + [...] [place] | | | | | | [address] | | | | | | | | +--------+---------+ + + + documented as of this encounter Visit Diagnoses Not on filedocumented in this encounter"
--- OUTSIDE RECORDS SUMMARY | ~2019-09-24 | XMS | Encounter Summary ---
Demographics + + + | Address | [address] | | | [place] [address] | + + + | Home Phone [...] | + + +---------+ + | Nathalia Weinsetin | ECON | Unknown | | + + +---------+ + Care Team Providers + +------+ + | Care Furnace Utility Operator Name | Role | Phone | + +------+ + PCP | Unavailable | + +------+ + Encounter Details +--------+ + + + + | Date | Type | Department | Care Team | Description | +--------+ + + + + | 02/22/ | Hospital | [facility] | Ken Craft | | | 2005 - | Encounter | HEART MED CTR BEH | MD Masha [address] | | | | | TH ADULT [address] [place], [place] | | | 02/28/ | | [address] [place], [place] | [address] | | | 2005 | | [address] | | | | | | [phone] | Samantha Estes | | | | | | MD Jewel [address] | | | | | | [address] | | | | | | [place] [address] | | | | | | | [...] [place] | | | | | | [id number] | | | | | | | | +--------+---------+ + + + documented as of this encounter Visit Diagnoses Not on filedocumented in this encounter"
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
--- OUTSIDE RECORDS SUMMARY | ~2019-09-24 | XMS | Encounter Summary ---
Demographics + + + | Address | [address] | | | [place] [address] | + + + | Home Phone [...] Providers + +------+ + | Care Quality Rn Name | Role | Phone | [...] + | 10/29/ | Telephone | [facility] | Sj Valdes MD | Appointment | | 2013 | | NEUROSURGERY [address] | [address] | (Increased | | | | [address] | [place] [address] | pain-requesting | | | | [place] | [phone] | [facility] | | | | [address] | | | | | | [phone] | | | +--------+ + + + [...] [place] | | | | | | [address] | | | | | | | | +--------+---------+ + + + documented as of this encounter Visit Diagnoses Not on filedocumented in this encounter"
--- OUTSIDE RECORDS SUMMARY | ~2019-09-24 | XMS | Encounter Summary ---
Demographics + + + | Address | [address] | | | [place] [address] | + + + | Home Phone [...] Team Providers + +------+ + | Care Shore Worker Name | Role | Phone | [...] | | | | [place] | [place] [address] | [address] | | | | | Lumbar | Phone: | Phone: | | | | | radiculopath | [phone] | [phone] | | | | | y | Fax: | Fax: | | | | | Procedures | [phone] | [phone] | | | | | HIM 04/17/18 [...] fracture of fifth | | | | [place], | [address] [place] | lumbar vertebra, | | | | [place] [address] | [place] [address] | sequela (Primary | | | | [phone] | [phone] | Dx); Lumbar | | | | [...] [place] | | | | | | [address] | | | | | | | | +--------+---------+ + + + + + +--------+ + + | Name | Type | Priori | Associated Diagnoses | Order Schedule | | | | ty | | | + + +--------+ + + | AMB REFERRAL TO [facility] | Outpatient | Routin | Closed Compression [...]
--- OUTSIDE RECORDS SUMMARY | ~2019-09-24 | XMS | Encounter Summary ---
Demographics + + + | Address | [address] | | | [place] [address] | + + + | Home Phone [...] Team Providers + +------+ + | Care Meal Attendant Name | Role | Phone | [...] + + | 08/31/ | Telephone | [facility] | Alfredo Casillas DO | Triage | | 2019 | | [facility] | [address] | | | | | MEDICINE RADHA | [place] [address] | | | | | [address] | [phone] | | | | | [place], [place] | | | | | | [address] | | | | | | [phone] | | | +--------+ + + + [...] [place] | | | | | | [address] | | | | | | | | +--------+---------+ + + + documented as of this encounter Visit Diagnoses Not on filedocumented in this encounter"
--- OUTSIDE RECORDS SUMMARY | ~2019-09-24 | XMS | Encounter Summary ---
Demographics + + + | Address | [address] | | | [place] [address] | + + + | Home Phone [...] Team Providers + +------+ + | Care Tin Pot Operator Name | Role | Phone | + +------+ + | Wendi Aiken | PCP | | + +------+ + Encounter Details +--------+ + + + + | Date | Type | Department | Care Team | Description | +--------+ + + + + | 12/28/ | Hospital | [facility] | Conversion | Diagnosis unknown | | 2018 | Encounter | CONVERSION [address] | Transaction, | | | | | [address] | Provider Unknown | | | | | [place], [place] | [phone] | | | | | [address] | | | | | | [phone] | | | +--------+ + + + [...] [place] | | | | | | [address] | | | | | | | [...]
--- OUTSIDE RECORDS SUMMARY | ~2019-09-24 | XMS | Encounter Summary ---
Demographics + + + | Address | [address] | | | [place] [address] | + + + | Home Phone [...] Providers + +------+ + | Care Graphite Mill Operator Name | Role | Phone [...] 2015 | Encounter | at [facility] [address] | [address] | havea problem with | | | | Abbe Soto Mailcode: | [address] [facility], | my heart. | | | | [address] | [place] [address] | | | | | [facility], | [phone] | | | | | [facility] | | | | | | floor [place], [place] | | | | | | [address] | | | | | | [phone] | | | +--------+ + + + [...]
--- OUTSIDE RECORDS SUMMARY | ~2019-09-24 | XMS | Encounter Summary ---
Demographics + + + | Address | [address] | | | [place] [address] | + + + | Home Phone [...] + + | Author | [facility] (Historical as of | | | 06-16-19) | + + + | Organization | [facility] (Historical as of | | [...] Team Providers + +------+ + | Care Inside Meter Tester Name | Role | Phone | + +------+ + | Romy De La Paz MD | PCP | | + +------+ + Encounter Details +--------+---------+ + + + | Date | Type | Department | Care Team | Description | +--------+---------+ + + + | 08/03/ | Surgery | [facility] | Maykel Hutchins MD | SPINAL CORD | | 2019 | | [facility] | [address] | STIMULATOR - | | | | Operating Room [address] | [place] [address] | THORACIC LAMINECTOMY | | | | [address] | [phone] | | | | | [place] [address] | | | | | | [phone] | | | +--------+---------+ + + + [...]
--- OUTSIDE RECORDS SUMMARY | ~2019-09-24 | XMS | Encounter Summary ---
Demographics + + + | Address | [address] | | | [place] [address] | + + + | Home Phone [...] Providers + +------+ + | Care Sales Representative [employer] Name | Role | Phone | + [...] | | [address] | [place] [address] | | | | | [place] | [phone] | | | | | [address] | | | | | | [phone] | | | +--------+ + + + [...] [place] | | | | | | [address] | | | | | | | | +--------+---------+ + + + documented as of this encounter Visit Diagnoses Not on filedocumented in this encounter"
--- OUTSIDE RECORDS SUMMARY | ~2019-09-24 | XMS | Encounter Summary ---
Demographics + + + | Address | [address] | | | [place] [address] | + + + | Home Phone [...] Providers + +------+ + | Care Customer Engineering Specialist Name | Role | Phone [...] + + | 04/28/ | Emergency | [facility] | Jean-Paul Flowers, | Chronic hip pain, | | 2014 | | MED CTR EMERGENCY | MD [address] | right (Primary Dx); | | | | CENTER [address] | [place] | Chronic low back | | | | [place] | [address] | pain; Frequent falls | | | | [address] | | | | | | [phone] | | | +--------+ + + + [...] Nugent MD - 04/28/2015Follow-up with Isaura from [facility] social work for assistance with home health, [...] [place] | | | | | | [address] | | | | | | | [...] L2, without spondylolisthesis.Dictated and Signed by: Dhruv Bendre MD | | Electronically signed: 04/28/2015 11:31 [...] | ---- | | | 04/28/2015 08:18 [facility] | | | Emergency -Right Hip to Toe 04/23/2015 10:50 [facility]. | | | [facility] 04/13/2015 | | | [...] | not stated as uncontrolled 04/10/2015 14:37 [facility] | [facility] -Surgical or [...] ------ --------- 1 0 | | | [facility] 2 | | | 0 [facility] 15 | | | 0 [facility] 18 | | | 0 Total Note: Visits indicate total | | | known visits. Medicaid [place] Dx are the number of primary diagnoses on | | | the [facility]'s non-emergent dx list. | | | | | | --- SYLVIE has no Care Guidelines for this patient. [place] | | | Prescription Review PDMP Report [...]
--- OUTSIDE RECORDS SUMMARY | ~2019-09-24 | XMS | Encounter Summary ---
Demographics + + + | Address | [address] | | | [place] [address] | + + + | Home Phone [...] Providers + +------+ + | Care Electrician Supervisor Substation Name | Role | Phone | + +------+ + | Romy De La Paz MD | PCP | | + +------+ + Encounter Details +--------+ + + + + | Date | Type | Department | Care Team | Description | +--------+ + + + + | 07/18/ | Preadmit | [facility] | No, Physician | | | 2019 | Visit | CENTER PREADMIT | | | | | | CLINIC [address] | | | | | | [place], [place] | | | | | | [address] | | | | | | [phone] | | | +--------+ + + + [...] for the 07/18/19 encounter (Preadmit Visit) with [facility] ROOM 5 Medication Sig Instructions Ascorbic [...] by elevating your feet Date Last Reviewed: 8044-1928 [employer]. [address] [place] [address]. All righ ts reserved. This information is [...] [place] | | | | | | [address] | | | | | | | [...] | | LABORATORY | | | | Blvd;[place] [address] | | | | + + + + + + + + | Specimen | + + | Blood | + + + + + + + | Performing | Address | City/State/Zipcode | Phone Number | | Organization | | | | + + + + + | [facility] | [address] | [place] [address] | [phone] | + + + + + MRSA [...] [facility] | | | | performed at [facility];[address] | | LABORATORY | | | | [address];[place], [place] | | | | | | [address] | | | | + + + + + + + + | Specimen | + + | Tissue - Both | | anterior nares (body | | structure) | + + + + + + + | Performing | Address | City/State/Zipcode | Phone Number | | Organization | | | | + + + + + | [facility] | [address] | [place] [address] | [phone] | + + + + + Protime INR (07/18/2019 2:26 PM PDT) + + + + + + | Component | Value | Ref Range | Performed | Pathologist | | | | | At | Signature | + + + + + + | INR | 1.0Comment: REFERENCE | | [facility] | | | | RANGE:0.9 [...] | | | | | performed at [facility];[address] | | | | | | [address];[place] | | | | | | [address] | | | | + + + + + + + + | Specimen | + + | Blood | + + + + + + + | Performing | Address | City/State/Zipcode | Phone Number | | Organization | | | | + + + + + | [facility] | [address] | [place] [address] | [phone] | + + + + + PTT (07/18/2019 2:26 PM PDT) + + + + + + | Component | Value | Ref Range | Performed | Pathologist | | | | | At | Signature | + + + + + + | PTT | 29Comment: Testing | 23 - 32 seconds | [facility] | | | | performed at [facility];[address] | | LABORATORY | | | | [address];[place] | | | | | | [address] | | | | + + + + + + + + | Specimen | + + | Blood | + + + + + + + | Performing | Address | City/State/Zipcode | Phone Number | | Organization | | | | + + + + + | [facility] | [address] | [place] [address] | [phone] | + + + + + Comprehensive [...] Hospital, | | | | | | [place] [address] | | | | + + + + + + + + | Specimen | + + | Blood | + + + + + + + | Performing | Address | City/State/Zipcode | Phone Number | | Organization | | | | + + + + + | [facility] | [address] | [place] [address] | [phone] | + + + + + CBC [...] | | | | | [place] [address] | | | | + + + + + + + + | Specimen | + + | Blood | + + + + + + + | Performing | Address | City/State/Zipcode | Phone Number | | Organization | | | | + + + + + | [facility] | [address] | [place] [address] | [phone] | + + + + + ECG [...]
--- OUTSIDE RECORDS SUMMARY | ~2019-09-24 | XMS | Encounter Summary ---
Demographics + + + | Address | [address] | | | [place] [address] | + + + | Home Phone [...] Team Providers + +------+ + | Care Applied Psychology Professor Name | Role | Phone [...] | | | [address] | [place] [address] | | | | | [place], [place] | [phone] | | | | | [address] | | | | | | [phone] | | | +--------+ + + + [...] [place] | | | | | | [address] | | | | | | | [...]
--- OUTSIDE RECORDS SUMMARY | ~2019-09-24 | XMS | Encounter Summary ---
Demographics + + + | Address | [address] | | | [place] [address] | + + + | Home Phone [...] Providers + +------+ + | Care Golf Shoe Spike Assembler Name | Role | Phone | [...] + + | 04/06/ | Telephone | [facility] | Nick Martinez, | Results, Imaging | | 2018 | | PHYSIATRY [address] | PA-C [address] | (MRI/Cancelled | | | | [place], | [address] [place] | Injection) | | | | [place] [address] | [place] [address] | | | | | [phone] | [phone] | | | | | | | [...] [place] | | | | | | [address] | | | | | | | | +--------+---------+ + + + documented as of this encounter Visit Diagnoses Not on filedocumented in this encounter"
--- OUTSIDE RECORDS SUMMARY | ~2019-09-24 | XMS | Encounter Summary ---
Demographics + + + | Address | [address] | | | [place] [address] | + + + | Home Phone [...] Providers + +------+ + | Care Vp Of Marketing Name | Role | Phone | [...] + + | 04/17/ | Telephone | [facility] | Nick Martinez, | Other (Back Brace) | | 2017 | | PHYSIATRY [address] | PA-C [address] | | | | | [place], | [address] [place] | | | | | [place] [address] | [place] [address] | | | | | [phone] | [phone] | | | | | | | [...] [place] | | | | | | [address] | | | | | | | | +--------+---------+ + + + documented as of this encounter Visit Diagnoses Not on filedocumented in this encounter"
--- OUTSIDE RECORDS SUMMARY | ~2019-09-24 | XMS | Encounter Summary ---
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 For all procedur [...] deficits with short or long term care social worker memory. She has appropriate fund of knowledge [...] along with flexion/extension xray's perf ormed in [place] last week. I will request for these [...] [place] | | | | | | [address] | | | | | | | [...] Kori Caputo | [facility] | | Joanen presents to the fluoroscopy suite for a [facility] | | fluoroscopically-guided left L5-S1 transforaminal [...] | Performing | Address | City/State[facility] | Phone Number | | Organization | | | | + + + + + | [facility] | [address] | [place] | [phone] | | [facility] | | [address] | | | - IMAGING | | [...]
--- OUTSIDE RECORDS SUMMARY | ~2019-09-24 | XMS | Encounter Summary ---
Demographics + + + | Address | [address] | | | [place] [address] | + + + | Home Phone [...] Team Providers + +------+ + | Care Crossing Gateman Name | Role | Phone | + +------+ + | Romy De La Paz MD | PCP | | + +------+ + Encounter Details +--------+ + + + + | Date | Type | Department | Care Team | Description | +--------+ + + + + | 10/18/ | Telephone | [facility] | Shay Dietz | | | 2012 | | MEDICINE [address] | MD Lonny [address] | | | | | Street [facility] | [place], [place] | | | | | [place] [address] | [address] | | | | | [phone] | | | +--------+ + + + [...] [place] | | | | | | [address] | | | | | | | | +--------+---------+ + + + documented as of this encounter Visit Diagnoses Not on filedocumented in this encounter"
--- OUTSIDE RECORDS SUMMARY | ~2019-09-24 | XMS | Encounter Summary ---
Demographics + + + | Address | [address] | | | [place] [address] | + + + | Home Phone [...] Team Providers + +------+ + | Care Annealing Furnace Tender Name | Role | Phone | [...] + | 10/29/ | Telephone | [facility] | Sj Valdes MD | Appointment | | 2013 | | NEUROSURGERY [address] | [address] | (Increased | | | | [address] | [place] [address] | pain-requesting | | | | [place] | [phone] | [facility]) | | | | [address] | | | | | | [phone] | | | +--------+ + + + [...] [place] | | | | | | [address] | | | | | | | | +--------+---------+ + + + documented as of this encounter Visit Diagnoses Not on filedocumented in this encounter"
--- OUTSIDE RECORDS SUMMARY | ~2019-09-24 | XMS | Encounter Summary ---
Demographics + + + | Address | [address] | | | [place] [address] | + + + | Home Phone [...] Team Providers + +------+ + | Care Tactical/Mobile Watch Officer Name | Role | Phone | [...] + | 11/01/ | Office | [facility] | Shay Dietz | Back pain (Primary | | 2012 | Visit | PHYSIATRY [address] | T, [address] | Dx); BACK PAIN, | | | | [place], | [place], [place] | LUMBAR; | | | | [place] [address] | [address] | OSTEOARTHRITIS, | | | | [phone] | | LUMBOSACRAL SPINE; | | | [...] - 11/01/2012 9:06 AM [facility] [...] our off ice. Please also provide a sulky driver to take you home on the [...] [place] | | | | | | [address] | | | | | | | [...]
--- OUTSIDE RECORDS SUMMARY | ~2019-09-24 | XMS | Encounter Summary ---
Demographics + + + | Address | [address] | | | [place] [address] | + + + | Home Phone [...] Providers + +------+ + | Care Accountant Supervisor Name | Role | Phone | [...] + + | 07/03/ | Telephone | [facility] | Shay Dietz | Other (Called | | 2012 | | PHYSIATRY [address] | [address] | patient to discuss | | | | [place], | [place], [place] | options regarding | | | | [place] [address] | [address] | having another | | | | [phone] | | injection or having | | [...] [place] | | | | | | [address] | | | | | | | | +--------+---------+ + + + documented as of this encounter Visit Diagnoses Not on filedocumented in this encounter"
--- OUTSIDE RECORDS SUMMARY | ~2019-09-24 | XMS | Encounter Summary ---
Demographics + + + | Address | [address] | | | [place] [address] | + + + | Home Phone [...] Team Providers + +------+ + | Care Logging Truck Driver Name | Role | Phone | + +------+ + | Romy De La Paz MD | PCP | | + +------+ + Encounter Details +--------+ + + + + | Date | Type | Department | Care Team | Description | +--------+ + + + + | 07/17/ | Prep for | [facility] | Maykel Hutchins MD | Chronic low back | | 2019 | Procedure | [facility] | [address] | pain with sciatica, | | | | ORTHOPEDIC SPINE | [facility], | sciatica laterality | | | | [address] [place] | [place] [address] | unspecified, | | | | [facility] [place] | [phone] | unspecified back | | | | [address] | | pain laterality | | | | [phone] | | (Primary Dx); Right | | [...] [place] | | | | | | [address] | | | | | | | [...]
--- OUTSIDE RECORDS SUMMARY | ~2019-09-24 | XMS | Encounter Summary ---
Demographics + + + | Address | [address] | | | [place] [address] | + + + | Home Phone [...] Providers + +------+ + | Care Territory Outside Sales Manager Name | Role | Phone | + +------+ + | Romy De La Paz MD | PCP | | + +------+ + Encounter Details +--------+ + + + + | Date | Type | Department | Care Team | Description | +--------+ + + + + | 07/18/ | Hospital | [facility] | Maykel Hutchins MD | | | 2019 | Encounter | [facility] XRAY | [address] | | | | | [address] | [place] [employer], | | | | | [place], [place] | [place] [address] | | | | | [address] | [phone] | | | | | [phone] | | | +--------+ + + + [...] [place] | | | | | | [address] | | | | | | | [...]
--- OUTSIDE RECORDS SUMMARY | ~2019-09-24 | XMS | Encounter Summary ---
Demographics + + + | Address | [address] | | | [place] [address] | + + + | Home Phone [...] + + | 08/06/ | Telephone | [facility] | Maykel Hutchins MD | Medication Question | | 2019 | | [facility] | [address] | | | | | ORTHOPEDIC SPINE | [place] | | | | | [address] [place] | [place] [address] | | | | | [place] | [phone] | | | | | [address] | | | | | | [phone] | | | +--------+ + + + [...] [place] | | | | | | [address] | | | | | | | | +--------+---------+ + + + documented as of this encounter Visit Diagnoses Not on filedocumented in this encounter"
--- OUTSIDE RECORDS SUMMARY | ~2019-09-24 | XMS | Encounter Summary ---
Demographics + + + | Address | [address] | | | [place] [address] | + + + | Home Phone [...] Providers + +------+ + | Care Diesel Retrofit Designer Name | Role | Phone | [...] | | | | CENTER [address] | [place] | Dx) | | | | [place] | [id number] | | | | | [address] | | | | | | [phone] | | | +--------+ + + + [...] [place] | | | | | | [address] | | | | | | | [...]
--- OUTSIDE RECORDS SUMMARY | ~2019-09-24 | XMS | Encounter Summary ---
Demographics + + + | Address | [address] | | | [place] [address] | + + + | Home Phone [...] Team Providers + +------+ + | Care Cage Manager Name | Role | Phone | [...] [address] | | | | | [facility] [address] | [address] [place], | | | 08/07/ | | [address]th [place], [place] | [place] [address] | | | 2004 | | [address] | [phone] | | | | | [phone] | | | +--------+ + + + [...] [place] | | | | | | [address] | | | | | | | | +--------+---------+ + + + documented as of this encounter Visit Diagnoses Not on filedocumented in this encounter"
--- OUTSIDE RECORDS SUMMARY | ~2019-09-24 | XMS | Encounter Summary ---
Demographics + + + | Address | [address] | | | [place] [address] | + + + | Home Phone [...] Team Providers + +------+ + | Care Depot Agent Name | Role | Phone | + +------+ + | Wendi Aiken | PCP | | + +------+ + Encounter Details +--------+ + + + + | Date | Type | Department | Care Team | Description | +--------+ + + + + | 04/07/ | Imaging | [facility] | Provider, | | | 2018 | Exam | MED CTR EXTERNAL | [address] | | | | | IMAGING | [place] | | | | | [phone] | [place] [address] | | +--------+ + + + + [...] | | | [facility] [place] | | | | | | [address] | | | | | | | [...]
--- OUTSIDE RECORDS SUMMARY | ~2019-09-24 | XMS | Encounter Summary ---
Demographics + + + | Address | [address] | | | [place] [address] | + + + | Home Phone [...] Team Providers + +------+ + | Care Production Assembler Name | Role | Phone | + +------+ + | Wendi Aiken | PCP | | + +------+ + Encounter Details +--------+ + + + + | Date | Type | Department | Care Team | Description | +--------+ + + + + | 07/12/ | Hospital | [facility] | Sj Valdes MD | Left lumbar | | 2017 | Encounter | MED CTR XRAY [address] | [address] | radiculopathy; DISC | | | | [place] | [place] [address] | DISEASE, LUMBAR; | | | | [place] [address] | [phone] | Back pain, | | | | [phone] | | unspecified back | | | [...] [place] | | | | | | [address] | | | | | | | [...]
--- OUTSIDE RECORDS SUMMARY | ~2019-09-24 | XMS | Encounter Summary ---
Demographics + + + | Address | [address] | | | [place] [address] | + + + | Home Phone [...] Team Providers + +------+ + | Care Diamond Die Driller Name | Role | Phone | + [...] [address] | Dx) | | | | [place], | [place] | | | | | [place] [address] | [address] | | | | | [phone] | | | +--------+ + + + [...] | | | | | | [facility] [place] | | | | | | [address] | | | | | | | | +--------+---------+ + + + documented as of this encounter Visit Diagnoses + + | Diagnosis | + + | Back pain - Primary Backache, unspecified | + + documented in this encounter"
--- OUTSIDE RECORDS SUMMARY | ~2019-09-24 | XMS | Encounter Summary ---
Demographics + + + | Address | [address] | | | [place] [address] | + + + | Home Phone [...] Team Providers + +------+ + | Care Pharmaceutical Sales Representative Name | Role | Phone | + +------+ + | Romy De La Paz MD | PCP | | + +------+ + Encounter Details +--------+ + + + + | Date | Type | Department | Care Team | Description | +--------+ + + + + | 07/18/ | Preadmit | [facility] | No, Physician | | | 2019 | Visit | CENTER [facility] | | | | | | CLINIC [address] | | | | | | [place], [place] | | | | | | [address] | | | | | | [phone] | | | +--------+ + + + [...] for the 07/18/19 encounter (Preadmit Visit) with [facility] ROOM 5 Medication Sig Instructions [...] by elevating your feet Date Last Reviewed: 2119-6842 [employer]. [address] [place] [address]. All righ ts reserved. This information is [...] [place] | | | | | | [address] | | | | | | | [...] | | LABORATORY | | | | Blvd;[place] [address] | | | | + + + + + + + + | Specimen | + + | Blood | + + + + + + + | Performing | Address | City/State/Zipcode | Phone Number | | Organization | | | | + + + + + | [facility] | [address] | [place] [address] | [phone] | + + + + + MRSA [...] [facility] | | | | performed at [facility];[address] | | LABORATORY | | | | [address];[place], [place] | | | | | | [address] | | | | + + + + + + + + | Specimen | + + | Tissue - Both | | anterior nares (body | | structure) | + + + + + + + | Performing | Address | City/State/Zipcode | Phone Number | | Organization | | | | + + + + + | [facility] | [address] | [place] [address] | [phone] | + + + + + Protime INR (07/18/2019 2:26 PM PDT) + + + + + + | Component | Value | Ref Range | Performed | Pathologist | | | | | At | Signature | + + + + + + | INR | 1.0Comment: REFERENCE | | [facility] | | | | [...] | | | | performed at [facility];[address] | | | | | | [address];[place] | | | | | | [address] | | | | + + + + + + + + | Specimen | + + | Blood | + + + + + + + | Performing | Address | City/State/Zipcode | Phone Number | | Organization | | | | + + + + + | [facility] | [address] | [place] [address] | [phone] | + + + + + PTT (07/18/2019 2:26 PM PDT) + + + + + + | Component | Value | Ref Range | Performed | Pathologist | | | | | At | Signature | + + + + + + | PTT | 29Comment: Testing | 23 - 32 seconds | AMIRA | | | | performed at [facility];[address] | | LABORATORY | | | | [address];[place] | | | | | | [address] | | | | + + + + + + + + | Specimen | + + | Blood | + + + + + + + | Performing | Address | City/State/Zipcode | Phone Number | | Organization | | | | + + + + + | [facility] | [address] | [place] [address] | [phone] | + + + + + Comprehensive [...] W | | | | | | [facility], | | | | | | [place] [address] | | | | + + + + + + + + | Specimen | + + | Blood | + + + + + + + | Performing | Address | City/State/Zipcode | Phone Number | | Organization | | | | + + + + + | [facility] | [address] | [place] [address] | [phone] | + + + + + CBC [...] | | | | | [place] [address] | | | | + + + + + + + + | Specimen | + + | Blood | + + + + + + + | Performing | Address | City/State/Zipcode | Phone Number | | Organization | | | | + + + + + | [facility] | [address] | [place] [address] | [phone] | + + + + + ECG [...]
--- OUTSIDE RECORDS SUMMARY | ~2019-09-24 | XMS | Encounter Summary ---
Demographics + + + | Address | [address] | | | [place] [address] | + + + | Home Phone [...] Team Providers + +------+ + | Care Replacer Name | Role | Phone | + [...] | | [address] [place] | [place] [address] | | | | | [place], [place] | [phone] | | | | | [address] | | | | | | [phone] | | | +--------+ + + + [...] [place] | | | | | | [address] | | | | | | | | +--------+---------+ + + + documented as of this encounter Visit Diagnoses Not on filedocumented in this encounter"
--- OUTSIDE RECORDS SUMMARY | ~2019-09-24 | XMS | Encounter Summary ---
Demographics + + + | Address | [address] | | | [place] [address] | + + + | Home Phone [...] Team Providers + +------+ + | Care Dray Driver Name | Role | Phone | + +------+ + | Miquel Calhoun MD | PCP | | + +------+ + Encounter Details +--------+ + + + + | Date | Type | Department | Care Team | Description | +--------+ + + + + | 10/18/ | Telephone | [facility] | Khushbu Cortez, | | | 2012 | | [facility] | FUR STORAGE CLERK [place], [place] | | | | | [address] | [address] | | | | | [address] | | | | | | Aravind Hannon | | | | | | [place], [place] | | | | | | [address] | | | | | | [phone] | | | +--------+ + + + [...]
--- OUTSIDE RECORDS SUMMARY | ~2019-09-24 | XMS | Encounter Summary ---
Demographics + + + | Address | [address] | | | [place] [address] | + + + | Home Phone [...] Providers + +------+ + | Care Cook Helper Fruit Name | Role | Phone | + +------+ + | Wendi Aiken | PCP | | + +------+ + Encounter Details +--------+ + + + + | Date | Type | Department | Care Team | Description | +--------+ + + + + | 12/28/ | Hospital | [facility] | Conversion | Diagnosis unknown | | 2018 | Encounter | CONVERSION DEP [address] | Transaction, | | | | | [address] | Provider Unknown | | | | | [place], [place] | [phone] | | | | | [address] | | | | | | [phone] | | | +--------+ + + + [...] [place] | | | | | | [address] | | | | | | | [...]
--- OUTSIDE RECORDS SUMMARY | ~2019-09-24 | XMS | Encounter Summary ---
Demographics + + + | Address | [address] | | | [place] [address] | + + + | Home Phone [...] Team Providers + +------+ + | Care Oven Worker Name | Role | Phone | [...] 2016 | Encounter | at [facility] [address] | [address] | test results | | | | Abbe Soto Mailcode: | [facility] [[email or web address]] [address], | | | | | [address] | [place] [address] | | | | | [facility], | [phone] | | | | | [place] [address] [facility] | | | | | | floor [place], [place] | | | | | | [address] | | | | | | [phone] | | | +--------+ + + + [...]
--- OUTSIDE RECORDS SUMMARY | ~2019-09-24 | XMS | Encounter Summary ---
Demographics + + + | Address | [address] | | | [place] [address] | + + + | Home Phone [...] + +------+ + | Care Mobile Sales Assistant Name | Role | Phone [...] Chronic low | [place], | [address] | | | | | back pain | Shay Mukherjee MD | [place], | | | | | Lumbar | [address] | [place] | | | | | radiculopath | [place] | [address] | | | | | y | [place] | Phone: | | | | | Procedures | [address] | [phone] | | | | | MRI Lumbar | Phone: | Fax: | | | | | Spine wo | [phone] | [phone] | | | | | Contrast | Fax: | | | | | | MRI | [phone] | | +--------+--------+ + + + + [...] pain (Primary Dx); | | | | [address] [place], | [place] | Lumbar radiculopathy | | | | [place] [address] | [address] | | | | | [phone] | | | +--------+ + + + [...] [place] | | | | | | [address] | | | | | | | [...] + + | Performing | Address | City/State/[facility] | Phone Number | | Organization | | | | + +---------+ + + | [facility] | | | [phone] | + +---------+ + + | [facility] | | | [phone] | + +---------+ + + documented in this encounter Visit Diagnoses + + | Diagnosis | + + | Chronic low back pain - Primary Lumbago | + + | Lumbar radiculopathy Thoracic or lumbosacral neuritis or radiculitis, unspecified | + + documented in this encounter"
--- OUTSIDE RECORDS SUMMARY | ~2019-09-24 | XMS | Encounter Summary ---
Demographics + + + | Address | [address] | | | [place] [address] | + + + | Home Phone [...] Team Providers + +------+ + | Care Train Attendant Name | Role | Phone | + +------+ + | Romy De La Paz MD | PCP | | + +------+ + Encounter Details +--------+ + + + + | Date | Type | Department | Care Team | Description | +--------+ + + + + | 10/18/ | Telephone | [facility] | Shay Dietz | | | 2012 | | MEDICINE [address] | MD Lonny [address] | | | | | Street [facility] | [place], [place] | | | | | [place] [address] | [address] | | | | | [phone] | | | +--------+ + + + [...] [place] | | | | | | [address] | | | | | | | | +--------+---------+ + + + documented as of this encounter Visit Diagnoses Not on filedocumented in this encounter"
--- OUTSIDE RECORDS SUMMARY | ~2019-09-24 | XMS | Encounter Summary ---
Demographics + + + | Address | [address] | | | [place] [address] | + + + | Home Phone [...] + | Author | [facility] (Historical as of | | | 06-16-19) | + + + | Organization | [facility] (Historical as of | | | [...] Team Providers + +------+ + | Care Tripoler Name | Role | Phone | + +------+ + | Romy De La Paz MD | PCP | | + +------+ + Encounter Details +--------+ + + + + | Date | Type | Department | Care Team | Description | +--------+ + + + + | 08/03/ | Hospital | [facility] | Maykel Hutchins MD | Postlaminectomy | | 2019 | 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
--- OUTSIDE RECORDS SUMMARY | ~2019-09-24 | XMS | Encounter Summary ---
Demographics + + + | Address | [address] | | | [place] [address] | + + + | Home Phone [...] Team Providers + +------+ + | Care Bale Tie Machine Operator Name | Role | Phone | + +------+ + | Wendi Aiken | PCP | | + +------+ + Encounter Details +--------+ + + + + | Date | Type | Department | Care Team | Description | +--------+ + + + + | 04/06/ | Hospital | [facility] | Nick Maritnez, | Lumbar radiculopathy | | 2018 | Encounter | MED CTR XRAY [address] | PA-C [address] | | | | | [place] | [address] [place] | | | | | [place] [address] | [place] [address] | | | | | [phone] | [phone] | | | | | | | | | | | | Shell Trim Operator, [facility] | | +--------+ + + [...] [place] | | | | | | [address] | | | | | | | [...]
--- OUTSIDE RECORDS SUMMARY | ~2019-09-24 | XMS | Encounter Summary ---
Demographics + + + | Address | [address] | | | [place] [address] | + + + | Home Phone [...] Team Providers + +------+ + | Care Dean Of Men Name | Role | Phone | + [...] low | [place], | [address] [place] | | | | | back pain | Shay Mukherjee MD | [place], | | | | | Procedures | [address] | [place] | | | | | MRI Lumbar | [place] | [address] | | | | | Spine wo | [place], [place] | Phone: | | | | | Contrast | [address] | [phone] | | | | | | Phone: | Fax: | | | | | | [phone] | [phone] | | | | | | Fax: | | | | | | | [phone] | | +--------+--------+ + + + + [...] + + | 08/16/ | Office | [facility] | Shay Dietz | Chronic low back | | 2012 | Visit | PHYSIATRY [address] | T, [address] | pain (Primary Dx); | | | | [place], | [place], [place] | DISC DISEASE, | | | | [place] [address] | [address] | LUMBAR; Facet | | | | [phone] | | arthritis of lumbar | | [...] [place] | | | | | | [address] | | | | | | | [...]
--- OUTSIDE RECORDS SUMMARY | ~2019-09-24 | XMS | Encounter Summary ---
Demographics + + + | Address | [address] | | | [place] [address] | + + + | Home Phone [...] Providers + +------+ + | Care Quality Assurance/R&D Lab Technician Name | Role | Phone | [...] + + | 07/03/ | Telephone | [facility] | Shay Dietz | Other (Called | | 2012 | | PHYSIATRY [address] | [address] | patient to discuss | | | | [place], | [place], [place] | options regarding | | | | [place] [address] | [address] | having another | | | | [phone] | | injection or having | | [...] [place] | | | | | | [address] | | | | | | | | +--------+---------+ + + + documented as of this encounter Visit Diagnoses Not on filedocumented in this encounter"
--- OUTSIDE RECORDS SUMMARY | ~2019-09-24 | XMS | Encounter Summary ---
Demographics + + + | Address | [address] | | | [place] [address] | + + + | Home Phone [...] + +------+ + | Care Office Technology Professor Name | Role | Phone | + +------+ + | Wendi Aiken | PCP | | + +------+ + Encounter Details +--------+ + + + + | Date | Type | Department | Care Team | Description | +--------+ + + + + | 06/07/ | Hospital | [facility] | Conversion | | | 2018 | Encounter | CENTER [facility] | Transaction, | | | | | CLINIC [address] | Provider Unknown | | | | | [place], [place] | | | | | | [address] | (Fax) | | | | | [phone] | | | +--------+ + + + [...] [place] | | | | | | [address] | | | | | | | [...] | | | Basophils | performed at [facility], [address] | K[address] | LAB | | | | [place], | | | | | | [place] [address] | | | | + + + [...] | | | | | performed at [facility], [address] | | | | | | [facility], | | | | | | [place] [address] | | | | + + + [...]
--- OUTSIDE RECORDS SUMMARY | ~2019-09-24 | XMS | Encounter Summary ---
Demographics + + + | Address | [address] | | | [place] [address] | + + + | Home Phone [...] Providers + +------+ + | Care Digital Pre Press Operator Name | Role | Phone [...] 2012 | | [facility] | [address] | (Dr. Holbrook) | | | | [facility] [address] | [address] | | | | | [address] | [place], [place] | | | | | [facility] | [address] | | | | | [place], [place] | [phone] | | | | | [address] | | | | | | [phone] | | | +--------+ + + + [...]
--- OUTSIDE RECORDS SUMMARY | ~2019-09-24 | XMS | Encounter Summary ---
Demographics + + + | Address | [address] | | | [place] [address] | + + + | Home Phone [...] Team Providers + +------+ + | Care Receiving Worker Name | Role | Phone | [...] [address] | | | | | [place] | [place] | | | | | [address] | [address] | | | | | [phone] | | | +--------+ + + + [...] [place] | | | | | | [id number] | | | | | | | | +--------+---------+ + + + documented as of this encounter Visit Diagnoses Not on filedocumented in this encounter"
--- OUTSIDE RECORDS SUMMARY | ~2019-09-24 | XMS | Encounter Summary ---
Demographics + + + | Address | [address] | | | [place] [address] | + + + | Home Phone [...] Providers + +------+ + | Care Associate Manager Name | Role | Phone | + +------+ + | Wendi Aiken | PCP | | + +------+ + Encounter Details +--------+ + + + + | Date | Type | Department | Care Team | Description | +--------+ + + + + | 05/10/ | Imaging | [facility] | Provider, | | | 2018 | Exam | MED CTR EXTERNAL | [address] | | | | | IMAGING | Vasquez VALDEZ | | | | | [phone] | [place] [address] | | +--------+ + + + + [...] | | | | | | [facility] | | | | | | [address] | | | | | | | [...]
--- OUTSIDE RECORDS SUMMARY | ~2019-09-24 | XMS | Encounter Summary ---
Demographics + + + | Address | [address] | | | [place] [address] | + + + | Home Phone [...] Team Providers + +------+ + | Care Cartography Professor Name | Role | Phone | + +------+ + PCP | Unavailable | + +------+ + Encounter Details +--------+ + + + + | Date | Type | Department | Care Team | Description | +--------+ + + + + | 12/08/ | Hospital | [facility] | | | | 1994 - | Encounter | MED CTR GENERIC PSY | | | | | | CONV DEPT [address] | | | | 12/18/ | | [place], | | | | 1994 | | [place] [address] | | | | | | [phone] | | | +--------+ + + + [...] [place] | | | | | | [address] | | | | | | | | +--------+---------+ + + + documented as of this encounter Visit Diagnoses Not on filedocumented in this encounter"
--- OUTSIDE RECORDS SUMMARY | ~2019-09-24 | XMS | Encounter Summary ---
Demographics + + + | Address | [address] | | | [place] [address] | + + + | Home Phone [...] Team Providers + +------+ + | Care Mri Assistant Name | Role | Phone | [...] Management | | 2016 | | at [facility] [address] | [address] | (follow up BPs) | | | | Abbe Soto Mailcode: | [address] [place], | | | | | [address] | [place] [address] | | | | | Health [facility] Healing, | [phone] | | | | | [place] [address] [facility] | | | | | | floor [place], [place] | | | | | | [address] | | | | | | [phone] | | | +--------+ + + + [...]
--- OUTSIDE RECORDS SUMMARY | ~2019-09-24 | XMS | Encounter Summary ---
Demographics + + + | Address | [address] | | | [place] [address] | + + + | Home Phone [...] Providers + +------+ + | Care Manager Cosmetic Name | Role | Phone | + [...] [address] | | | | | [place] | [facility] [place], [place] | | | | | [place] [address] | [address] | | | | | [phone] | | | +--------+ + + + [...] [place] | | | | | | [address] | | | | | | | [...] At | + + + | [facility] Diagnostic Imaging | [facility] | | Department [address] [facility], [place] | [facility] | | [ rep [address]] [ rep [facility] | | st zip] Signed | - IMAGING | | | | | Patient Name: KORI HARMON | | | Physician: OMID : 1945 Age: 68 Sex: F Unit | | | #: [id number] Exam Date: 10/18/13 Location: | | | IMG.INV Report #: [id number] Page: | | | %(RAD)RES..mtdd.print.filter("pg") of %(RAD) | | | RES..mtdd.print.filter("tpg") | | | | | | Accession Number: [id number] | | | LUMBAR MEDIAL BRANCH BLOCKS, [...] Transcribed Date/Time: | | | 10/18/2013 19:14 Power Sewing Machine Operator: | | | <<Signature on File>> | | | Shay Mukherjee | | | MD J Luis10/22/13 0756 <Electronically signed by Shay Mukherjee | | | J Luis SALGADO> Shay Dietz MD 10/18/13 8021 | | | Power Sewing Machine Operator: Yudelka Cbvdjgzhbwdxj75/19/13 4250 | | | PROVIDER,UNKNOWN | | + + + + + + + + | Performing | Address | City/State/Zipcode | Phone Number | | Organization | | | | + + + + + | [facility] | [address] | [place] | [phone] | | [facility] | | [address] | | | - IMAGING | | | | + + + + + documented in this encounter Visit Diagnoses Not on filedocumented in this encounter
--- OUTSIDE RECORDS SUMMARY | ~2019-09-24 | XMS | Encounter Summary ---
Demographics + + + | Address | [address] | | | [place] [address] | + + + | Home Phone [...] Providers + +------+ + | Care Jig Maker Name | Role | Phone | [...] | | 2016 | Encounter | at [facility] [address] | [address] | [place] | | | | [place] Mailcode: | [facility] [address] [facility] | | | | | [address] | [place] [address] | | | | | Health and Healing, | [phone] | | | | | [place] [address] [facility] | | | | | | floor [place], [place] | | | | | | [address] | | | | | | [phone] | | | +--------+ + + + [...]
--- OUTSIDE RECORDS SUMMARY | ~2019-09-24 | XMS | Encounter Summary ---
Demographics + + + | Address | [address] | | | [place] [address] | + + + | Home Phone [...] Team Providers + +------+ + | Care Small Order Cutter Name | Role | Phone | + +------+ + PCP | Unavailable | + +------+ + Encounter Details +--------+ + + + + | Date | Type | Department | Care Team | Description | +--------+ + + + + | 06/26/ | Respiratory | | Other, Faculty | | | 2006 | Therapy | | [phone] | | +--------+ + + + + [...] RAD[facility] ALONZO | [address] | [place], [place] | | | DIAGNOSTICS - | [place] | [address] | | | PULMONARY FUNCTION | | | | + + + + + documented in this encounter Visit Diagnoses Not on filedocumented in this encounter"
--- OUTSIDE RECORDS SUMMARY | ~2019-09-24 | XMS | Encounter Summary ---
Demographics + + + | Address | [address] | | | [place] [address] | + + + | Home Phone [...] Team Providers + +------+ + | Care Reservation Manager Name | Role | Phone | [...] | Cervical | Darrin | [address] | | | | | radiculopath | BRI Doan | [place], | | | | | y | [address] | [place] | | | | | Myelopathy | [address] | [address] | | | | | (HCC) | [address] | Phone: | | | | | Procedures | [place], | [phone] | | | | | MRI Cervical | [place] [address] | Fax: | | | | | Spine wo | Phone: | [phone] | | | | | Contrast | [phone] | | | | | | | Fax: | | | | | | | [phone] | | +--------+--------+ + + + + [...] | Chronic low | [place], [place] | [place], | | | | | back pain | [address] | [place] [address] | | | | | Facet | Phone: | Phone: | | | | | arthritis of | [phone] | [phone] | | | | | lumbar | Fax: | Fax: | | | | | region | [phone] | [phone] | | | | | Scoliosis of | | | | | | | lumbar | | | | | | | spine Acute | | | | | | | renal | | | | | | | failure | | | | | | | (HCC) | | | | | | | Procedures | | | | | | | ID OFFICE | | | | | | [...] + + | 07/26/ | Office | [facility] | Darrin Hoyos | 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 PEE Vang [address] [facility], [address] [place] [address] FAX: NEUROSURGERY HISTORY AND PHYSICAL EXAMINATION CHIEF [...] ently a also seen a surgeon in [facility] he stated she did not need to have surgery pawel dave to her report. She also reports she had a recent MRI in the [facility] which I do not marcos [...] 5 4 Ulnar Intrinsics 5 4 Production Boring Machine Operator Strength 5 4 Hip Flexion 5 [...] [place] | | | | | | [address] | | | | | | | [...]
--- OUTSIDE RECORDS SUMMARY | ~2019-09-24 | XMS | Encounter Summary ---
Demographics + + + | Address | [address] | | | [place] [address] | + + + | Home Phone [...] + +------+ + | Care Sap Basis Administrator Name | Role | Phone | [...] | 2016 | Encounter | at [facility] [address] | [address] [facility] | | | | | [place] Mailcode: | [facility] 60 [place], | | | | | [address] | [place] [address] | | | | | Health and Healing, | [phone] | | | | | [facility] | | | | | | floor [place], [place] | | | | | | [address] | | | | | | [phone] | | | +--------+ + + + [...]
--- OUTSIDE RECORDS SUMMARY | ~2019-09-24 | XMS | Encounter Summary ---
Demographics + + + | Address | [address] | | | [place] [address] | + + + | Home Phone [...] Providers + +------+ + | Care Business Systems Administrator Name | Role | Phone [...] + + | 12/19/ | Office | [facility] | Shay Dietz | Chronic low back | | 2013 | Visit | PHYSIATRY [address] | TMD [address] | pain (Primary Dx); | | | | [place], | [place], [place] | Facet arthritis of | | | | [place] [address] | [address] | lumbar region; Left | | | | [phone] | | lumbar | | | | [...] [place] | | | | | | [address] | | | | | | | [...]
--- OUTSIDE RECORDS SUMMARY | ~2019-09-24 | XMS | Encounter Summary ---
Demographics + + + | Address | [address] | | | [place] [address] | + + + | Home Phone [...] Team Providers + +------+ + | Care Topography Technician Name | Role | Phone | + +------+ + PCP | Unavailable | + +------+ + Encounter Details +--------+ + + + + | Date | Type | Department | Care Team | Description | +--------+ + + + + | 09/07/ | Hospital | [facility] | | | | 1998 - | Encounter | MED CTR CANCER | | | | | | ALEXEY Hernadez | | | | 10/30/ | | [place] | | | | 1998 | | [address] | | | | | | [phone] | | | +--------+ + + + [...] [place] | | | | | | [address] | | | | | | | | +--------+---------+ + + + documented as of this encounter Visit Diagnoses Not on filedocumented in this encounter"
--- OUTSIDE RECORDS SUMMARY | ~2019-09-24 | XMS | Encounter Summary ---
Demographics + + + | Address | [address] | | | [place] [address] | + + + | Home Phone [...] Providers + +------+ + | Care Digital Photographer Name | Role | Phone | [...] 2016 | Encounter | at [facility] [address] | [address] [facility] | | | | | [place] Mailcode: | [facility] 60 [place], | | | | | [address] | [place] [address] | | | | | Health and Healing, | [phone] | | | | | [facility] | | | | | | floor [place], [place] | | | | | | [address] | | | | | | [phone] | | | +--------+ + + + [...]
--- OUTSIDE RECORDS SUMMARY | ~2019-09-24 | XMS | Encounter Summary ---
Demographics + + + | Address | [address] | | | [place] [address] | + + + | Home Phone [...] Providers + +------+ + | Care Supervisor Pleating Name | Role | Phone | + +------+ + | Wendi Aiken | PCP | | + +------+ + Encounter Details +--------+ + + + + | Date | Type | Department | Care Team | Description | +--------+ + + + + | 04/07/ | Imaging | [facility] | Provider, | | | 2018 | Exam | MED CTR EXTERNAL | [address] | | | | | IMAGING | [place] | | | | | [phone] | [place] [address] | | +--------+ + + + + [...] [place] | | | | | | [address] | | | | | | | [...]
--- OUTSIDE RECORDS SUMMARY | ~2019-09-24 | XMS | Encounter Summary ---
Demographics + + + | Address | [address] | | | [place] [address] | + + + | Home Phone [...] Team Providers + +------+ + | Care Collar Shaper Operator Name | Role | Phone | [...] | | | | | Juliana [place], | | | | | | [place] [address] | | | +--------+ + + + [...]
--- OUTSIDE RECORDS SUMMARY | ~2019-09-24 | XMS | Encounter Summary ---
Demographics + + + | Address | [address] | | | [place] [address] | + + + | Home Phone [...] Team Providers + +------+ + | Care Men'S Golf Coach Name | Role | Phone [...] | | | | | (HCC) | [facility], | [address] | | | | | Scoliosis of | [place] [address] | [place], | | | | | lumbar | Phone: | [place] [address] | | | | | spine, | [phone] | Phone: | | | | | unspecified | Fax: | [phone] | | | | | scoliosis | [phone] | Fax: | | | | | type | | [phone] | | | | | Foraminal | [...] Scheduling Instructions | + + | Prefers [place] if possible | + + Reason for [...] low back | PA-C [address] | [place] | | | | | pain with | [address] | [address] | | | | | right-sided | [place] | Phone: | | | | | sciatica | [address] | [phone] | | | | | Facet | Phone: | Fax: | | | | | arthritis of | [phone] | [phone] | | | | | lumbar | Fax: | | | | | | region | [phone] | | | | | | Adolescent [...] + + | 07/12/ | Office | [facility] | Sj Valdes MD | SACROILIITIS | | 2017 | Visit | NEUROSURGERY [address] | [address] | (Primary Dx); | | | | [facility] [address] | [place] [address] | Scoliosis of lumbar | | | | [place] | [phone] | spine, unspecified | | | | [address] | | scoliosis type; | | | | [phone] | | Foraminal stenosis | | | [...] from logan french original. Sj Valdes M.D. [address] [place] [address], [address] [place] [address] NEUROSURGERY HISTORY AND PHYSICAL EXAMINATION CHIEF COMPLAINT: [...] has no apparent deficits with short or skilled nursing memory. MOTOR EXAM: (5 IS NORMAL) * Indicates pain limited MUSCLE/ MOVEMENT: RIGHT LEFT Deltoids 5 4+ Biceps 5 5 Triceps 5 5 Wrist Flexion 5 5 Wrist Extension 5 5 Median Intrinsics 5 4 Ulnar Intrinsics 5 4 Bus Driver/Monitor Strength 5 4 Hip Flexion 5 4* [...] she continues to see a psychologist in [place]. Despite her continued evaluation, I do not [...] | | | | | | DRIVE [place], [place] | | | | | | [id number] | | | | | | | [...] | | | | | | region ([facility]) Left | | | | | [...]
--- OUTSIDE RECORDS SUMMARY | ~2019-09-24 | XMS | Encounter Summary ---
Demographics + + + | Address | [address] | | | [place] [address] | + + + | Home Phone [...] Providers + +------+ + | Care Bi Application Developer Name | Role | Phone | + +------+ + | Romy De La Paz MD | PCP | | + +------+ + Encounter Details +--------+ + + + + | Date | Type | Department | Care Team | Description | +--------+ + + + + | 07/18/ | Hospital | [facility] | Maykel Hutchins MD | | | 2019 | Encounter | [facility] | [address] | | | | | [address] | [place], | | | | | [place], [place] | [place] [address] | | | | | [address] | [phone] | | | | | [phone] | | | +--------+ + + + [...] Decreased | | | | | | moth exterminator current | Responsiveness (May | | | [...] 2018 | Visit | | DO [address] | | | | | | [place] | | | | | | [address] | | | | | | | [...]
--- OUTSIDE RECORDS SUMMARY | ~2019-09-24 | XMS | Encounter Summary ---
Demographics + + + | Address | [address] | | | [place] [address] | + + + | Home Phone [...] Team Providers + +------+ + | Care Marble Machine Operator Name | Role | Phone | + +------+ + | Wendi Aiken | PCP | | + +------+ + Encounter Details +--------+ + + + + | Date | Type | Department | Care Team | Description | +--------+ + + + + | 04/07/ | Imaging | [facility] | Provider, | | | 2018 | Exam | MED CTR EXTERNAL | [address] | | | | | IMAGING | [place] | | | | | [phone] | [place] [address] | | +--------+ + + + + [...] | | | | | [address] [place] | | | | | | [address] | | | | | | | [...]
--- OUTSIDE RECORDS SUMMARY | ~2019-09-24 | XMS | Encounter Summary ---
Demographics + + + | Address | [address] | | | [place] [address] | + + + | Home Phone [...] Team Providers + +------+ + | Care Slot Machine Department Floorperson Name | Role | Phone | + [...] | | | | | bilateral | [place], [place] | | | | | | low back | [address] | | | | | | pain with | Phone: | | | | | | right-sided | [phone] | | | | | | sciatica | Fax: | | | | | | | [phone] | | + + + + + [...] | 2019 - | Encounter | [facility] | [address] | (Primary Dx); | | | | CARE FLOOR [address] | HAYLEY [place], | Chronic bilateral | | 08/04/ | | [address] | [place] [address] | low back pain with | | 2019 | | [place] | [phone] | right-sided sciatica | | | | [address] | | | | | | [phone] | | | +--------+ + + + [...] note might be different from logan phillips. [facility]. 08/04/2019 DISCHARGE SUMMARY PATIENT NAME: [...] by elevating your feet Date Last Reviewed: 2394-5434 [employer] [place] [address], [place] [address]. All righ ts reserved. This information is not intended as a substitute for professional medical care. Always follow your healthcare professional's instructions. Acetaminophen; Hydrocodone tablets or capsules Brand Names: Anexsia, Lorcet, Lorcet HD, Lorcet Plus, Lortab, [place], Verdrocet, Vicodin, Vi codin ES, Vicodin HP, [...] information carefully each time. Talk to your boston cutter regarding the use of this medicine in children. Special care may be needed. What side effects may I notice from receiving this medicine? Side effects that you should report to your doctor or health health care facilities inspector as soon as p ossible: allergic reactions [...] attention (report to your doctor or health health care facilities inspector if they continue or are bothersome): constipation [...] site. Contact the [facility] at [phone] or your [facility] to find a site. If [...] this medicine? Tell your doctor or health health care facilities inspector if your pain does not go away, [...] pharmacist, or health care provider. Copyright 2019 [employer] documented in this encounter Medications at Time [...] MSW - 08/04/2019 2:12 PM PDTCase manager metal sent out Home Health order to Kadi [...] her up today to go home to [facility]. Past Medical History: Diagnosis Date Acid reflux [...] 100 mg Oral BID PRN Julien Ang, TOE FORMER STITCHDOWNS HYDROcodone-acetaminophen (NORCO) 10-325 mg per tablet 1 tablet 1 tablet Oral Q4H PRN Julien Ang, TOE FORMER STITCHDOWNS 1 tablet at 08/04/19 0502 HYDROmorphone (DILAUDID) injection 0.2-0.4 mg 0.2-0.4 mg Intravenous Q1H PRN Maykel ortiz MD 0.2 mg at 08/03/19 1700 methocarbamol (ROBAXIN) tablet 1,500 mg 1,500 mg Oral Q6H PRN Julien Guzman, TOE FORMER STITCHDOWNS ondansetron (ZOFRAN ODT) disintegrating tablet 4 mg 4 mg Oral Q6H PRN Julien Guzman, TOE FORMER STITCHDOWNS rOPINIRole (REQUIP) tablet 4 mg 4 mg Oral 4x Daily PRN Maykel Hutchins MD senna (SENOKOT) tablet 8.6 mg 8.6 mg Oral BID PRN Julien Guzman, TOE FORMER STITCHDOWNS sodium chloride 0.45% (1/2 NS) infusion Intravenous Continuous Maykel Hutchins MD 100 mL /hr at 08/03/19 1342 950 mL at 08/03/19 1342 sodium chloride 0.45% (1/2 NS) infusion Intravenous Continuous Julien Guzman, TOE FORMER STITCHDOWNS 100 m L/hr at 08/04/19 0057 Allergies [...] - 08/03/2019 3:02 PM PDTPT With Pt. Riacectronically signed by Jane Vaca RN at 08/03/2019 [...] [place] | | | | | | [address] | | | | | | | [...] | | | Needs | | | [employer] | | | reques | | [...] | POC | performed at [facility] | | LABORATORY | | | | [address];[place], [place] | | | | | | [address] | | | | + + + + + + + + | Specimen | + + | | + + + + + + + | Performing | Address | City/State/Zipcode | Phone Number | | Organization | | | | + + + + + | [facility] | [address] | [place] [address] | [phone] | + + + + + POC Glucose (08/03/2019 4:15 PM PDT) + + + + + + | Component | Value | Ref Range | Performed | Pathologist | | | | | At | Signature | + + + + + + | Glucose, | 99Comment: Testing | 65 - 99 mg/dL | [facility] | | | POC | performed at [facility] | | LABORATORY | | | | [address];[place] | | | | | | [address] | | | | + + + + + + + + | Specimen | + + | | + + + + + + + | Performing | Address | City/State/Zipcode | Phone Number | | Organization | | | | + + + + + | [facility] | [address] | [place] [address] | [phone] | + + + + + POC [...] | POC | performed at [facility] | | LABORATORY | | | | [address];[place] | | | | | | [address] | | | | + + + + + + + + | Specimen | + + | | + + + + + + + | Performing | Address | City/State/Zipcode | Phone Number | | Organization | | | | + + + + + | [facility] | [address] | [place] [address] | [phone] | + + + + + POC Glucose (08/03/2019 11:05 AM PDT) + + + + + + | Component | Value | Ref Range | Performed | Pathologist | | | | | At | Signature | + + + + + + | Glucose, | 108 (H)Comment: Testing | 65 - 99 mg/dL | [facility] | | | POC | performed at [facility];[address] | | LABORATORY | | | | [address];[place] | | | | | | [address] | | | | + + + + + + + + | Specimen | + + | | + + + + + + + | Performing | Address | City/State/Zipcode | Phone Number | | Organization | | | | + + + + + | [facility] | [address] | [place] [address] | [phone] | + + + + + LINSEY [...] | POC | performed at [facility];[address] | | LABORATORY | | | | [address];[place] | | | | | | [address] | | | | + + + + + + + + | Specimen | + + | | + + + + + + + | Performing | Address | City/State/Zipcode | Phone Number | | Organization | | | | + + + + + | [facility] | [address] | [place] [address] | [phone] | + + + + + POC Glucose (08/03/2019 9:14 AM PDT) + + + + + + | Component | Value | Ref Range | Performed | Pathologist | | | | | At | Signature | + + + + + + | Glucose, | 80Comment: Testing | 65 - 99 mg/dL | [facility] | | | POC | performed at [facility];[address] | | LABORATORY | | | | [address];[place] | | | | | | [address] | | | | + + + + + + + + | Specimen | + + | | + + + + + + + | Performing | Address | City/State/Zipcode | Phone Number | | Organization | | | | + + + + + | [facility] | [address] | [place] [address] | [phone] | + + + + + Type [...] + + + | BB BAND | [id number] | | [facility] | | | | | | LABORATORY | | + + + + + + | BB BAND | Testing performed at | | [facility] | | | | [facility];[address] | | LABORATORY | | | | [address];[place] [address] | | | | + + + + + + + + | Specimen | + + | Blood | + + + + + + + | Performing | Address | City/State/Zipcode | Phone Number | | Organization | | | | + + + + + | [facility] | [address] | [place] [address] | [phone] | + + + + + POC [...] | POC | performed at [facility];[address] | | LABORATORY | | | | [address];[place], [place] | | | | | | [address] | | | | + + + + + + + + | Specimen | + + | | + + + + + + + | Performing | Address | City/State/Zipcode | Phone Number | | Organization | | | | + + + + + | [facility] | [address] | [place] [address] | [phone] | + + + + + documented [...] | | | | | | longer, tdegim-huf-uvuff use of | | | | | [...] | | | | | | | skteal-pup-ltxpy use of at least | | | [...]
--- OUTSIDE RECORDS SUMMARY | ~2019-09-24 | XMS | Encounter Summary ---
Demographics + + + | Address | [address] | | | [place] [address] | + + + | Home Phone [...] Team Providers + +------+ + | Care Textile Knitter Name | Role | Phone | [...] + | 08/05/ | Emergency | [facility] | Dion Richardson | Chronic low back | | 2014 | | [facility] | Laz Richards MD | pain (Primary Dx); | | | | CENTER [address] | [address] | Weakness | | | | [place] | [place] | | | | | [address] | [address] | | | | | [phone] | | | +--------+ + + + [...] [place] | | | | | | [address] | | | | | | | [...] [address] | [place] | [phone] | | [facility] | | [address] | | | - LABORATORY | | | | + + + + + | [address] | [address] | [place] | | | [facility] | | [address] | | | - LABORATORY | | [...] [facility] | | | | | | [facility] | | | | | [...] + | [address] | [address] | [place] | [phone] | | [facility] | | [address] | | | - LABORATORY | | | | + + + + + | [address] | [address] | [place], [place] | | | [facility] | | [address] | | | - LABORATORY | | [...] (H) | 7 - 18 mg/dL | [facility] | | | | | | [facility] | | | | | | MEDICAL | | | | | | CENTER - | | | | | | LABORATORY | | + + + + + + | Creatinine | 0.75 | 0.60 - 1.30 | [facility] | | | | | mg/dL | [facility] | | | | | | MEDICAL | | | | | | CENTER - | | | | | | LABORATORY | | + + + + + + | eGFR if not | >60Comment: GLOMERULAR | >=60 | [facility] | | | | FILTRATION | mL/min/1.73m2 | [facility] | | | [place]IAN | RATE,ESTIMATED | | MEDICAL | | | | mL/min/1.40q8Mrul than | | CENTER - | | [...] + | [facility] | [address] | [place], [place] | [phone] | | [facility] | | [address] | | | - LABORATORY | | | | + + + + + | [facility] | [address] | [place], [place] | | | [facility] | | [address] | | | - LABORATORY | | [...] | | Count | | | [facility] | | | | | | [...] | Neutrophils | | K/uL | [facility] | | | | | | MEDICAL [...] | Basophils | | K/uL | [facility] | | | | | | MEDICAL [...] + | [facility] | [address] | [place] | [phone] | | [facility] | | [address] | | | - LABORATORY | | | | + + + + + | [facility] | [address] | [place] | | | [facility] | | [address] | | | - LABORATORY | | [...] + | [facility] | [address] | [place], [place] | [phone] | | [facility] | | [address] | | | - LABORATORY | | | | + + + + + | [facility] | [address] | [place], [place] | | | [facility] | | [address] | | | - LABORATORY | | [...]
--- OUTSIDE RECORDS SUMMARY | ~2019-09-24 | XMS | Encounter Summary ---
Demographics + + + | Address | [address] | | | [place] [address] | + + + | Home Phone [...] Team Providers + +------+ + | Care Political Science Faculty Member Name | Role | Phone [...] + + | 08/16/ | Telephone | [facility] | Shay Dietz | Appointment | | 2012 | | PHYSIATRY [address] | [address], [address] | | | | | [place], | [place], [place] | | | | | [place] [address] | [address] | | | | | [phone] | | | +--------+ + + + [...] [place] | | | | | | [address] | | | | | | | | +--------+---------+ + + + documented as of this encounter Visit Diagnoses Not on filedocumented in this encounter"
--- OUTSIDE RECORDS SUMMARY | ~2019-09-24 | XMS | Encounter Summary ---
Demographics + + + | Address | [address] | | | [place] [address] | + + + | Home Phone [...] Team Providers + +------+ + | Care Recruiter Name | Role | Phone | [...] [facility] | [employer] [place], [place] | | | | | [address] | [address] | | | | | [address] | | | | | | Aravind Hannon | | | | | | [place], [place] | | | | | | [address] | | | | | | [phone] | | | +--------+ + + + [...]
--- OUTSIDE RECORDS SUMMARY | ~2019-09-24 | XMS | Encounter Summary ---
Demographics + + + | Address | [address] | | | [place] [address] | + + + | Home Phone [...] Providers + +------+ + | Care Sociology Professor Name | Role | Phone | [...] Provider Unknown | | | | | [place], [place] | | | | | | [address] | (Fax) | | | | | [phone] | | | +--------+ + + + [...] [place] | | | | | | [id number] | | | | | | | [...]
--- OUTSIDE RECORDS SUMMARY | ~2019-09-24 | XMS | Encounter Summary ---
Demographics + + + | Address | [address] | | | [place] [address] | + + + | Home Phone [...] Team Providers + +------+ + | Care Machines Technician Name | Role | Phone | [...] Vasquez [place]DEZ | | | | | [phone] | [place] [address] | | +--------+ + + + + [...] | | | | [address] [facility] [place] | | | | | | [id number] | | | | | | | [...]
--- OUTSIDE RECORDS SUMMARY | ~2019-09-24 | XMS | Encounter Summary ---
Demographics + + + | Address | [address] | | | [place] [address] | + + + | Home Phone [...] Providers + +------+ + | Care Assembler Deck [employer] Hull Name | Role | Phone | + [...] | SR | | | | | [phone] | | | +--------+ + + + [...] [place] | | | | | | [address] | | | | | | | | +--------+---------+ + + + documented as of this encounter Visit Diagnoses Not on filedocumented in this encounter
--- OUTSIDE RECORDS SUMMARY | ~2019-09-24 | XMS | Encounter Summary ---
Demographics + + + | Address | [address] | | | [place] [address] | + + + | Home Phone [...] Providers + +------+ + | Care Supervisor Sleeping Bag Department Name | Role | Phone | [...] + + | 08/31/ | Telephone | [facility] | Niki Pizarro, | Other (patient | | 2019 | | NEUROSURGERY [address] | RN | trying to reach | | | | PHILL HAMMONDS | | [facility]'s office) | | | | [place] | | | | | | [address] | | | | | | [phone] | | | +--------+ + + + [...] [place] | | | | | | [address] | | | | | | | | +--------+---------+ + + + documented as of this encounter Visit Diagnoses Not on filedocumented in this encounter"
--- OUTSIDE RECORDS SUMMARY | ~2019-09-24 | XMS | Encounter Summary ---
Demographics + + + | Address | [address] | | | [place] [address] | + + + | Home Phone [...] Team Providers + +------+ + | Care Shop Superintendent Name | Role | Phone | [...] Vas[place]Z | | | | | [phone] | [place] [address] | | +--------+ + + + + [...] | | | | | | [facility] | | | | | | [address] | | | | | | | [...]
--- OUTSIDE RECORDS SUMMARY | ~2019-09-24 | XMS | Encounter Summary ---
Demographics + + + | Address | [address] | | | [place] [address] | + + + | Home Phone [...] Team Providers + +------+ + | Care Hog Room Supervisor Name | Role | Phone [...] Management | | 2016 | | at [facility] [address] | [address] | (follow up BPs) | | | | Abbe Soto Mailcode: | [address] [place], | | | | | [address] | [place] [address] | | | | | [facility], | [phone] | | | | | [place] [address] [facility] | | | | | | floor [place], [place] | | | | | | [address] | | | | | | [phone] | | | +--------+ + + + [...]
--- OUTSIDE RECORDS SUMMARY | ~2019-09-24 | XMS | Encounter Summary ---
Demographics + + + | Address | [address] | | | [place] [address] | + + + | Home Phone [...] Team Providers + +------+ + | Care Vanstone Machine Operator Name | Role | Phone [...] + + | 05/01/ | Office | [facility] | Shay Dietz | BACK PAIN, LUMBAR | | 2012 | Visit | PH[address]SIATRY [address] | [address], [address] | (Primary Dx); DISC | | | | [place], | ST [place], [place] | DISEASE, LUMBAR; | | | | [place] [address] | [address] | OSTEOARTHRITIS, | | | | [phone] | | LUMBOSACRAL SPINE | +--------+---------+ + [...] our off ice. Please also provide a national flatbed truck driver to take you home on [...] the most recent injection was performed by mt on 11/09/2012. She reports good relief with [...] a letter to the caregivers at the [facility] to allow them to give her a [...] | | | | | | [facility] [place] | | | | [...]
--- OUTSIDE RECORDS SUMMARY | ~2019-09-24 | XMS | Encounter Summary ---
Demographics + + + | Address | [address] | | | [place] [address] | + + + | Home Phone [...] Team Providers + +------+ + | Care Polygraph Technician Name | Role | Phone | + +------+ + | Miquel Calhoun MD | PCP | | + +------+ + Encounter Details +--------+ + + + + | Date | Type | Department | Care Team | Description | +--------+ + + + + | 11/29/ | Documentati | [facility] | Khushbu Cortez, | | | 2013 | on | [facility] | AUDIT CONSULTANT [place], [place] | | | | | [address] | [address] | | | | | [address] | | | | | | [place] | | | | | | [facility] [place] | | | | | | [address] | | | | | | [phone] | | | +--------+ + + + [...]
--- OUTSIDE RECORDS SUMMARY | ~2019-09-24 | XMS | Clinical Summary ---
Demographics + + + | Address | [address] | | | [place] [address] | [...] | Author | [facility] [employer] (Historical as of | | | 06-16-19) [...] Team Providers + +------+ + | Care Sound Recordist Name | Role | Phone | + [...] +---------+------+------+-------+ | | Apply to affected | 86584 g | 3 | 04/30 | 04/30 [...] Overview: Added automatically from request for surgery [id number] | + + + + + | Radiculopathy of thoracolumbar region | 06/07/2019 | + + + + + | Overview: Added automatically from request for surgery [id number] | + + + + + | Radiculopathy, lumbosacral region | 06/07/2019 | + + + + + | Overview: Added automatically from request for surgery [id number] | + + + + + | Spondylosis without myelopathy or radiculopathy, cervical region | 03/20/2019 | + + + + + | Overview: Added automatically from request for surgery [id number] | + + + + + | Spondylosis without myelopathy or radiculopathy, lumbosacral | 03/20/2019 | | region | | + + + + + | Overview: Added automatically from request for surgery [id number] | + + + + + | Chronic bilateral low back pain without sciatica | 03/20/2019 | + + + + + | Overview: Added automatically from request for surgery [id number] | + + + + + | Strain of lumbar region | 02/25/2019 | + + + + + | Overview: Added automatically from request for surgery [id number] | + + + + + | Lumbar region somatic dysfunction | 02/25/2019 | + + + + + | Overview: Added automatically from request for surgery [id number] | + + + + + | Chronic low back pain with sciatica | 02/25/2019 | + + + + + | Overview: Added automatically from request for surgery [id number] | + + + + + | Intervertebral disc disorders with radiculopathy, lumbosacral | 02/25/2019 | | region | | + + + + + | Overview: Added automatically from request for surgery [id number] | + + + + + | Spinal stenosis of lumbosacral region | 02/25/2019 | + + + + + | Overview: Added automatically from request for surgery [id number] | + + + + + | [...] Overview: Added automatically from request for surgery [id number] | | Problem List Pan Reclaim Processor Utility | + + + + + [...] | | 11/23/ | 3186AN | | [id number]: Qty: 1 on | | | MEDICAL - | | 2020 | S | | 03/28/2019 by Sonja, | | | JU | | | /[address] | | DO Alfredo | | | [...] +------+-------+ + | MEDICARE | MEDICA | [id number] | | | [address] | | | RE | | | | [place] [phone] | | | IP-OP | | | | | + +--------+ +------+-------+ + | COMMERCIAL OTHER | COMMER | [id number] | | | | | | CIAL [...] BOWEN | al/Fam | | 1945 | [phone] | [place] [address] | | | jose | | | [phone] | | + +--------+ +--------+ + +
--- OUTSIDE RECORDS SUMMARY | ~2019-09-24 | XMS | Encounter Summary ---
Demographics + + + | Address | [address] | | | [place] [address] | + + + | Home Phone [...] | + + +---------+ + | Nathalia Weisntein | ECON | Unknown | | + + +---------+ + Care Team Providers + +------+ + | Care Director Career Services Name | Role | Phone | [...] Unknown | | | | | [place], [place] | | | | | | [address] | (Fax) | | | | | [phone] | | | +--------+ + + + [...] Medicine | Denys iSbley, | | | 2018 | Visit | | DO [address] | | | | | | [place] | | | | | | [address] | | | | | | | [...] | | | Basophils | performed at [facility], [address] | [address] | LAB | | | | [address], | | | | | | [place] [address] | | | | + + + [...] | | | | | performed at [facility], [address] | | | | | | [facility], | | | | | | [place] [address] | | | | + + + [...]
--- OUTSIDE RECORDS SUMMARY | ~2019-09-24 | XMS | Encounter Summary ---
Demographics + + + | Address | [address] | | | [place] [address] | + + + | Home Phone [...] Team Providers + +------+ + | Care Etl Informatica Developer Name | Role | Phone | [...] Thoracic or | [place], | [address] | | | | | lumbosacral | Shay Mukherjee MD | [place], | | | | | neuritis or | [address] | [place] | | | | | | [place] | [address] | | | | | radiculitis, | [place] | Phone: | | | | | unspecified | [address] | [phone] | | | | | Procedures | Phone: | Fax: | | | | | CT INJECT | [phone] | [phone] | | | | | ANES/STEROID | Fax: | | | | | | FORAMEN | [phone] | | | | | | LUMBAR/SACRA | | | | | | | L W IMG | | | | | | | GUIDE ,1 | | | | | | | LEVEL CT | | | | | | [...] + + | 04/18/ | Hospital | [facility] | Spenser, | Left lumbar | | 2013 | Encounter | MED CTR XRAY [address] | [place] [address] | radiculopathy; | | | | [place] | MICHAEL FITCH, | Chronic low back | | | | [place] [address] | [place] [address] | pain; Facet | | | | [phone] | [phone] | arthritis of lumbar | | | | | | region; Foraminal | | | | | Subsystems Engineer [facility] | stenosis of lumbar | | [...] [place] | | | | | | [address] | | | | | | | [...] radiculopathy ICD-9 Code 724.4 Kori Caputo | [facility] | | Joanne presents to [...] [address] | [place] | [phone] | | [facility] | | [address] | | | - IMAGING | | [...]
--- OUTSIDE RECORDS SUMMARY | ~2019-09-24 | XMS | Encounter Summary ---
Demographics + + + | Address | [address] | | | [place] [address] | + + + | Home Phone [...] Team Providers + +------+ + | Care Floor Service Worker Spring Name | Role | Phone | + [...] | | | | Chronic low | [place], [place] | [place], | | | | | back pain | [address] | [place] [address] | | | | | Facet | Phone: | Phone: | | | | | arthritis of | [phone] | [phone] | | | | | lumbar | Fax: | Fax: | | | | | region | [phone] | [phone] | | | | | Scoliosis of [...] | | | | | | [place] OFFICE | | | | | | [...] lumbar region - | | | | [place], | [address] [place], | left L5-S1 (Primary | | | | [place] [address] | [place] [address] | Dx); Chronic low | | | | [phone] | [phone] | back pain; Facet | | | [...] [place] | | | | | | [address] | | | | | | | [...]
--- OUTSIDE RECORDS SUMMARY | ~2019-09-24 | XMS | Encounter Summary ---
Demographics + + + | Address | [address] | | | [place] [address] | + + + | Home Phone [...] Providers + +------+ + | Care Art Education Professor Name | Role | Phone [...] + + | 04/03/ | Telephone | [facility] | Nick Martinez, | Medication Question | | 2017 | | PHYSIATRY [address] | PA-C [address] | | | | | [facility], | [address] [place] | | | | | [place] [address] | [place] [address] | | | | | [phone] | [phone] | | | | | | | [...] [place] | | | | | | [id number] | | | | | | | | +--------+---------+ + + + documented as of this encounter Visit Diagnoses Not on filedocumented in this encounter"
--- OUTSIDE RECORDS SUMMARY | ~2019-09-24 | XMS | Encounter Summary ---
Demographics + + + | Address | [address] | | | [place] [address] | + + + | Home Phone [...] Providers + +------+ + | Care Auto Heater Mechanic Name | Role | Phone | [...] | | [address] [place] | [place] [address] | | | | | [place] | [phone] | | | | | [address] | | | | | | [phone] | | | +--------+ + + + [...] [place] | | | | | | [address] | | | | | | | | +--------+---------+ + + + documented as of this encounter Visit Diagnoses Not on filedocumented in this encounter"
--- OUTSIDE RECORDS SUMMARY | ~2019-09-24 | XMS | Encounter Summary ---
Demographics + + + | Address | [address] | | | [place] [address] | + + + | Home Phone [...] Providers + +------+ + | Care Woodwind Instrument Repairer Name | Role | Phone | [...] | | [address] | [place] [address] | | | | | [place] | [phone] | | | | | [address] | | | | | | [phone] | | | +--------+ + + + [...] [place] | | | | | | [address] | | | | | | | | +--------+---------+ + + + documented as of this encounter Visit Diagnoses Not on filedocumented in this encounter"
--- OUTSIDE RECORDS SUMMARY | ~2019-09-24 | XMS | Encounter Summary ---
Demographics + + + | Address | [address] | | | [place] [address] | + + + | Home Phone [...] Providers + +------+ + | Care Mail Agent Name | Role | Phone | + +------+ + | Miquel Calhoun MD | PCP | | + +------+ + Encounter Details +--------+ + + + + | Date | Type | Department | Care Team | Description | +--------+ + + + + | 09/18/ | Hospital | [facility] | Shay Dietz | | | 2012 | Encounter | MED CTR XRAY [address] | [address] | | | | | [place] | [address] [place], [place] | | | | | [place] [address] | [address] | | | | | [phone] | | | +--------+ + + + [...] [place] | | | | | | [address] | | | | | | | | +--------+---------+ + + + documented as of this encounter Visit Diagnoses Not on filedocumented in this encounter"
--- OUTSIDE RECORDS SUMMARY | ~2019-09-24 | XMS | Encounter Summary ---
Demographics + + + | Address | [address] | | | [place] [address] | + + + | Home Phone [...] Providers + +------+ + | Care Digital Sales Director Name | Role | Phone | [...] + + | 04/06/ | Telephone | [facility] | Nick Martinez, | Results, Imaging | | 2018 | | PHYSIATRY [address] | PA-C [address] | (MRI/Cancelled | | | | [place], | [address] [place] | Injection) | | | | [place] [address] | [place] [address] | | | | | [phone] | [phone] | | | | | | | [...] [place] | | | | | | [address] | | | | | | | | +--------+---------+ + + + documented as of this encounter Visit Diagnoses Not on filedocumented in this encounter"
--- OUTSIDE RECORDS SUMMARY | ~2019-09-24 | XMS | Encounter Summary ---
Demographics + + + | Address | [address] | | | [place] [address] | + + + | Home Phone [...] Providers + +------+ + | Care Mold Swabber Name | Role | Phone | + +------+ + PCP | Unavailable | + +------+ + Encounter Details +--------+ + + + + | Date | Type | Department | Care Team | Description | +--------+ + + + + | 08/31/ | Hospital | [facility] | | | | 2010 | Encounter | MED CTR LABORATORY | | | | | | [address] | | | | | | [place] | | | | | | [address] | | | | | | [phone] | | | +--------+ + + + [...] [place] | | | | | | [address] | | | | | | | [...] + | [facility] | [address] | [place] | [phone] | | [facility] | | [address] | | | - LABORATORY | | | | + + + + + | [facility] | [address] | [place] | | | [facility] | | [address] | | | - LABORATORY | | | | + + + + + documented in this encounter Visit Diagnoses Not on filedocumented in this encounter"
--- OUTSIDE RECORDS SUMMARY | ~2019-09-24 | XMS | Encounter Summary ---
Demographics + + + | Address | [address] | | | [place] [address] | + + + | Home Phone [...] Team Providers + +------+ + | Care Java Developer With Security Clearance Name | Role | Phone | + [...]
--- OUTSIDE RECORDS SUMMARY | ~2019-09-24 | XMS | Encounter Summary ---
Demographics + + + | Address | [address] | | | [place] [address] | + + + | Home Phone [...] Providers + +------+ + | Care Formation Fracturing Operator Name | Role | Phone | + +------+ + | Concepción Gallardo NP | PCP | | + +------+ + Encounter Details +--------+ + + + + | Date | Type | Department | Care Team | Description | +--------+ + + + + | 11/26/ | Emergency | [facility] | Garth Pedroza MD | Convulsions, | | 2016 | | MEDICAL CENTER | [address] | unspecified | | | | EMERGENCY CENTER | [place] [address] | convulsion type | | | | [address] | [phone] | ([facility]); Generalized | | | | [place], [place] | | weakness | | | | [address] | | | | | | [phone] | | | +--------+ + + + [...] [place] | | | | | | [address] | | | | | | | [...] LAB | | | | [facility];[address];[place] [address] | | | | + + + + + + | Clarity | CLEARComment: Testing | | EXTERNAL | | | | performed at [facility];[address] | | LAB | | | [address];[place] | | | | | | [address] | | | | + + + + + + | Specific | 1.008Comment: Testing | 1.002 - 1.030 | EXTERNAL | | | Ephrata | performed at [facility];[address] | | LAB | | | | [address];[place] | | | | | | [address] | | | | + + + + + + | Leukocyte | NEGATIVEComment: Testing | | EXTERNAL | | | Esterase, | performed at [facility];[address] | | LAB | | | Urine | [address];[place] | | | | | | [address] | | | | + + + + + + | Nitrite, | NEGATIVEComment: Testing | | EXTERNAL | | | Urine | performed at [facility];[address] | | LAB | | | | [address];[place] | | | | | | [address] | | | | + + + + + + | Urobilinoge | NORMALComment: Testing | mg/dL | EXTERNAL | | | n, Urine | performed at [facility];[address] | | LAB | | | | [address];[place] | | | | | | [address] | | | | + + + + + + | Protein, | NEGATIVEComment: Testing | mg/dL | EXTERNAL | | | Urine | performed at [facility];[address] | | LAB | | | | [address];[place] | | | | | | [address] | | | | + + + + + + | pH, Urine | 5.0Comment: Testing | 5.0 - 8.0 | EXTERNAL | | | | performed at [facility];[address] | | LAB | | | | [address];[place] | | | | | | [address] | | | | + + + + + + | Blood, | NEGATIVEComment: Testing | | EXTERNAL | | | Urine | performed at [facility];[address] | | LAB | | | | [address];[place] | | | | | | [address] | | | | + + + + + + | Ketones | NEGATIVEComment: Testing | mg/dL | EXTERNAL | | | | performed at [facility];[address] | | LAB | | | | [address];[place] | | | | | | [address] | | | | + + + + + + | Bilirubin, | NEGATIVEComment: Testing | | EXTERNAL | | | Urine | performed at [facility];[address] | | LAB | | | | [address];[place] | | | | | | [address] | | | | + + + + + + | Glucose, | NEGATIVEComment: Testing | mg/dL | EXTERNAL | | | Urine | performed at [facility];[address] | | LAB | | | | [address];[place] | | | | | | [address] | | | | + + + [...] | | | performed at [facility];[address] | K/uL | LAB | | | | [address];[place], [place] | | | | | | [address] | | | | + + + + + -+ | RED CELL | 4.61Comment: Testing | 3.70 - 5.10 | EXTERNAL | | | COUNT | performed at [facility];888 | M/uL | LAB | | | | [address];[place] | | | | | | [address] | | | | + + + + + -+ | Hgb | 13.4Comment: Testing | 11.3 - 15.5 | EXTERNAL | | | | performed at [facility];888 | g/dL | LAB | | | | [address];[place] | | | | | | [address] | | | | + + + + + -+ | Hematocrit, | 40.4Comment: Testing | 34.0 - 46.0 % | EXTERNAL | | | POC | performed at [facility];[address] | | LAB | | | | [address];[place] | | | | | | [address] | | | | + + + + + -+ | MCV | 87.7Comment: Testing | 80.0 - 100.0 fl | EXTERNAL | | | | performed at [facility];[address] | | LAB | | | | [address];[place] | | | | | | [address] | | | | + + + + + -+ | MCH | 29.1Comment: Testing | 27.0 - 34.0 pg | EXTERNAL | | | | performed at [facility];[address] | | LAB | | | | [address];[place] | | | | | | [address] | | | | + + + + + -+ | MCHC | 33.2Comment: Testing | 32.0 - 35.5 | EXTERNAL | | | | performed at [facility];888 | g/dL | LAB | | | | [address];[place] | | | | | | [address] | | | | + + + + + -+ | RDW-CV | 39.8Comment: Testing | 37 - 53 fl | EXTERNAL | | | | performed at [facility];[address] | | LAB | | | | [address];[place] | | | | | | [address] | | | | + + + + + -+ | Platelet | 287Comment: Testing | 150 - 400 K/uL | EXTERNAL | | | Count | performed at [facility];[address] | | LAB | | | Plasma | [address];[place] | | | | | | [address] | | | | + + + + + -+ | MPV | 7.7Comment: Testing | fl | EXTERNAL | | | | performed at [facility];[address] | | LAB | | | | [address];[place] | | | | | | [address] | | | | + + + + + -+ | Differentia | AUTOMATEDComment: | | EXTERNAL | | | l Type | Testing performed at | | LAB | | | | [facility];[address];[place] [address] | | | | + + + + + -+ | % Segmented | 45.19Comment: Testing | % | EXTERNAL | | | | performed at [facility];[address] | | LAB | | | Neutrophils | [address];[place] | | | | | | [address] | | | | + + + + + -+ | % | 44.63Comment: Testing | % | EXTERNAL | | | Lymphocytes | performed at [facility];[address] | | LAB | | | | [address];[place] | | | | | | [address] | | | | + + + + + -+ | % Monocytes | 7.42Comment: Testing | % | EXTERNAL | | | | performed at [facility];[address] | | LAB | | | | [address];[place] | | | | | | [address] | | | | + + + + + -+ | % | 1.58Comment: Testing | % | EXTERNAL | | | Eosinophils | performed at [facility];[address] | | LAB | | | | [address];[place] | | | | | | [address] | | | | + + + + + -+ | % Basophils | 1.18Comment: Testing | % | EXTERNAL | | | | performed at [facility];[address] | | LAB | | | | [address];[place] | | | | | | [address] | | | | + + + + + -+ | Absolute | 3.08Comment: Testing | 1.90 - 7.40 | EXTERNAL | | | Segmented | performed at [facility];888 | K/uL | LAB | | | Neutrophils | [address];[place] | | | | | | [address] | | | | + + + + + -+ | Absolute | 3.04Comment: Testing | 1.00 - 3.90 | EXTERNAL | | | Lymphocytes | performed at [facility];888 | K/uL | LAB | | | | [address];[place] | | | | | | [address] | | | | + + + + + -+ | Absolute | 0.51Comment: Testing | 0.00 - 0.80 | EXTERNAL | | | Monocytes | performed at [facility];888 | K/uL | LAB | | | | [address];[place] | | | | | | [address] | | | | + + + + + -+ | Absolute | 0.11Comment: Testing | 0.00 - 0.50 | EXTERNAL | | | Eosinophils | performed at [facility];888 | K/uL | LAB | | | | [address];[place] | | | | | | [address] | | | | + + + + + -+ | Absolute | 0.08Comment: Testing | 0.00 - 0.10 | EXTERNAL | | | Basophils | performed at [facility];888 | K/uL | LAB | | | | [address];[place] | | | | | | [address] | | | | + + + + + -+ | Na | 139Comment: Testing | 135 - 143 | EXTERNAL | | | | performed at [facility];888 | mmol/L | LAB | | | | [address];[place] | | | | | | [address] | | | | + + + + + -+ | K | 4.1Comment: SLT | 3.5 - 4.9 | EXTERNAL | | | | HEMOLYSISTesting | mmol/L | LAB | | | | performed at [facility];[address] | | | | | | [address];[place] | | | | | | [address] | | | | + + + + + -+ | Cl | 106Comment: Testing | 99 - 109 mmol/L | EXTERNAL | | | | performed at [facility];[address] | | LAB | | | | [address];[place] | | | | | | [address] | | | | + + + + + -+ | CO2 | 28Comment: Testing | 23 - 32 mmol/L | EXTERNAL | | | | performed at [facility];888 | | LAB | | | | [address];[place] | | | | | | [address] | | | | + + + + + -+ | Anion Gap | 9Comment: Testing | 5 - 20 mmol/L | EXTERNAL | | | | performed at [facility];888 | | LAB | | | | [address];[place] | | | | | | [address] | | | | + + + + + -+ | Glucose, | 78Comment: Testing | 65 - 99 mg/dL | EXTERNAL | | | Fasting | performed at [facility];888 | | LAB | | | | [address];[place] | | | | | | [address] | | | | + + + + + -+ | BUN | 16Comment: Testing | 8 - 25 mg/dL | EXTERNAL | | | | performed at [facility];[address] | | LAB | | | | [address];[place] | | | | | | [address] | | | | + + + + + -+ | Creatinine | 0.82Comment: Testing | 0.50 - 1.00 | EXTERNAL | | | | performed at [facility];888 | mg/dL | LAB | | | | [address];[place] | | | | | | [address] | | | | + + + + + -+ | BUN/Creatin | 20Comment: Testing | | EXTERNAL | | | ine Ratio | performed at [facility];[address] | | LAB | | | | [address];[place] | | | | | | [address] | | | | + + + + + -+ | Calcium | 8.3 (L)Comment: Testing | 8.5 - 10.5 | EXTERNAL | | | | performed at [facility];888 | mg/dL | LAB | | | | [address];[place] | | | | | | [address] | | | | + + + + + -+ | Protein, | 7.3Comment: Testing | 6.3 - 8.2 g/dL | EXTERNAL | | | Total | performed at [facility];[address] | | LAB | | | | [address];[place] | | | | | | [address] | | | | + + + + + -+ | Albumin | 3.7Comment: Testing | 3.3 - 4.8 g/dL | EXTERNAL | | | | performed at [facility];[address] | | LAB | | | | [address];[place] | | | | | | [address] | | | | + + + + + -+ | Globulin | 3.6Comment: Testing | 1.3 - 4.9 g/dL | EXTERNAL | | | | performed at [facility];[address] | | LAB | | | | [address];[place] | | | | | | [address] | | | | + + + + + -+ | A/G Ratio | 1.0Comment: Testing | 1.0 - 2.4 | EXTERNAL | | | | performed at [facility];888 | | LAB | | | | [address];[place] | | | | | | [address] | | | | + + + + + -+ | Bilirubin | 0.2Comment: Testing | 0.1 - 1.5 mg/dL | EXTERNAL | | | Total | performed at [facility];888 | | LAB | | | | [address];[place] | | | | | | [address] | | | | + + + + + -+ | ALP, | 69Comment: Testing | 35 - 115 U/L | EXTERNAL | | | External | performed at [facility];888 | | LAB | | | | [address];[place] | | | | | | [address] | | | | + + + + + -+ | AST | 22Comment: SLT | 10 - 45 U/L | EXTERNAL | | | | HEMOLYSISTesting | | LAB | | | | performed at [facility];888 | | | | | | [address];[place] | | | | | | [address] | | | | + + + + + -+ | ALT | 31Comment: Testing | 10 - 65 U/L | EXTERNAL | | | | performed at [facility];888 | | LAB | | | | [address];[place] | | | | | | [address] | | | | + + + [...] | | | | at [facility];[address] | | | | [address];[place] [address] | | | | + + + + + -+ | CK, Total | 128Comment: Testing | 30 - 240 U/L | EXTERNAL | | | | performed at [facility];[address] | | LAB | | | | [address];[place] | | | | | | [address] | | | | + + + [...] | | | performed at [facility];[address] | | | | | | [address];[place] | | | | | | [address] | | | | + + + + + -+ | aPTT, | 27Comment: Testing | 23 - 32 seconds | EXTERNAL | | | Patient | performed at [facility];[address] | | LAB | | | | [address];[place] | | | | | | [address] | | | | + + + + + -+ | CK-MB | 3.2Comment: Testing | 0.5 - 3.6 ng/mL | EXTERNAL | | | | performed at [facility];888 | | LAB | | | | [address];[place] | | | | | | [address] | | | | + + + [...] | LAB | | | | [address];[place] | | | | | | [address] | | | | + + + [...]
--- OUTSIDE RECORDS SUMMARY | ~2019-09-24 | XMS | Encounter Summary ---
Demographics + + + | Address | [address] | | | [place] [address] | + + + | Home Phone [...] Providers + +------+ + | Care Maintenance Millwright Name | Role | Phone | + [...] Provider Unknown | | | | | [place], [place] | | | | | | [address] | (Fax) | | | | | [phone] | | | +--------+ + + + [...] [place] | | | | | | [id number] | | | | | | | [...]
--- OUTSIDE RECORDS SUMMARY | ~2019-09-24 | XMS | Encounter Summary ---
Demographics + + + | Address | [address] | | | [place] [address] | + + + | Home Phone [...] Team Providers + +------+ + | Care Shopping Centre Manager Name | Role | Phone [...] + | 11/01/ | Telephone | [facility] | Shay Dietz | Medication Problem | | 2012 | | PHYSIATRY [address], [address] | | | | | [place], | [place], [place] | | | | | [place] [address] | [address] | | | | | [phone] | | | +--------+ + + + [...] [place] | | | | | | [address] | | | | | | | | +--------+---------+ + + + documented as of this encounter Visit Diagnoses + + | Diagnosis | + + | Back pain - Primary Backache, unspecified | + + documented in this encounter"
--- OUTSIDE RECORDS SUMMARY | ~2019-09-24 | XMS | Encounter Summary ---
Demographics + + + | Address | [address] | | | [place] [address] | + + + | Home Phone [...] Providers + +------+ + | Care Rn Placement Name | Role | Phone | + [...] Chronic low | [place], | [address] | | | | | back pain | Shay Mukherjee MD | [place], | | | | | Lumbar | [address] | [place] | | | | | radiculopath | [place] | [address] | | | | | y | [place], [place] | Phone: | | | | | Procedures | [address] | [phone] | | | | | MRI Lumbar | Phone: | Fax: | | | | | Spine wo | [phone] | [phone] | | | | | Contrast | Fax: | | | | | | MRI | [phone] | | +--------+--------+ + + + + [...] Chronic low | [place], | [address] | | | | | back pain | Shay Mukherjee MD | [place], | | | | | Lumbar | [address] | [place] | | | | | radiculopath | [place] | [address] | | | | | y | [place], [place] | Phone: | | | | | Procedures | [address] | [phone] | | | | | MRI Lumbar | Phone: | Fax: | | | | | Spine wo | [phone] | [phone] | | | | | Contrast | Fax: | | | | | | MRI | [phone] | | +--------+--------+ + + + + Encounter Details +--------+ + + + + | Date | Type | Department | Care Team | Description | +--------+ + + + + | 04/12/ | Hospital | [facility] | Shay Dietz | Chronic low back | | 2013 | Encounter | MED CTR MRI [address] | [address], [address] | pain; Lumbar | | | | [address] [place], | [place], [place] | radiculopathy | | | | [place] [address] | [address] | | | | | [phone] | | | +--------+ + + + [...] [place] | | | | | | [address] | | | | | | | [...] + | MISCELLANEOUS LAB | | | [phone] | + +---------+ + + | MISCELANIOUS LAB | | | [phone] | + +---------+ + + documented in this encounter Visit Diagnoses + + | Diagnosis | + + | Chronic low back pain Lumbago | + + | Lumbar radiculopathy Thoracic or lumbosacral neuritis or radiculitis, unspecified | + + documented in this encounter"
--- OUTSIDE RECORDS SUMMARY | ~2019-09-24 | XMS | Encounter Summary ---
Demographics + + + | Address | [address] | | | [place] [address] | + + + | Home Phone [...] Team Providers + +------+ + | Care Renewable Energy Engineer Name | Role | Phone [...] + + | 04/28/ | Emergency | [facility] | Jean-Paul Flowers, | Chronic hip pain, | | 2014 | | MED CTR EMERGENCY | MD [address] | right (Primary Dx); | | | | CENTER [address] | [place] | Chronic low back | | | | [place] | [address] | pain; Frequent falls | | | | [address] | | | | | | [phone] | | | +--------+ + + + [...] Nugent MD - 04/28/2015Follow-up with Isaura from [facility] social work for assistance with home [...] [place] | | | | | | [address] | | | | | | | [...] | ---- | | | 04/28/2015 08:18 [facility] | | | Emergency -Right Hip to Toe 04/23/2015 10:50 [facility]. | | | [facility] 04/13/2015 | | | [...] as uncontrolled 04/10/2015 14:37 [facility] | | | Hospital Emergency -Surgical or [...] ------ --------- 1 0 | | | [facility] 2 | | | 0 [facility] 15 | | | 0 [facility] 18 | | | 0 Total Note: Visits indicate total | | | known visits. Medicaid [place] Dx are the number of primary diagnoses on | | | the [facility]'s non-emergent dx list. | | [...]
--- OUTSIDE RECORDS SUMMARY | ~2019-09-24 | XMS | Encounter Summary ---
Demographics + + + | Address | [address] | | | [place] [address] | + + + | Home Phone [...] + +------+ + | Care Nurse Practitioner Name | Role | Phone [...] [address] | Dx) | | | | [place], | [place] | | | | | [place] [address] | [address] | | | | | [phone] | | | +--------+ + + + [...] | | | | | | [facility] [place] | | | | | | [address] | | | | | | | | +--------+---------+ + + + documented as of this encounter Visit Diagnoses + + | Diagnosis | + + | Back pain - Primary Backache, unspecified | + + documented in this encounter"
--- OUTSIDE RECORDS SUMMARY | ~2019-09-24 | XMS | Encounter Summary ---
Demographics + + + | Address | [address] | | | [place] [address] | + + + | Home Phone [...] Team Providers + +------+ + | Care [employer] Grade Reading Teacher Name | Role | Phone | [...] [address] | | | | | [place], | [place], [place] | | | | | [place] [address] | [address] | | | | | [phone] | | | +--------+ + + + [...] [place] | | | | | | [id number] | | | | | | | | +--------+---------+ + + + documented as of this encounter Visit Diagnoses Not on filedocumented in this encounter"
--- OUTSIDE RECORDS SUMMARY | ~2019-09-24 | XMS | Encounter Summary ---
Demographics + + + | Address | [address] | | | [place] [address] | + + + | Home Phone [...] Team Providers + +------+ + | Care Stem Cutter Name | Role | Phone | [...] + | 05/09/ | Telephone | [facility] | Nick Martinez, | Results, Imaging | | 2017 | | PHYSIATRY [address] | PA-C [address] | | | | | [place], | [address] [place] | | | | | [place] [address] | [place] [address] | | | | | [phone] | [phone] | | | | | | | [...] [place] | | | | | | [address] | | | | | | | | +--------+---------+ + + + documented as of this encounter Visit Diagnoses Not on filedocumented in this encounter"
--- OUTSIDE RECORDS SUMMARY | ~2019-09-24 | XMS | Encounter Summary ---
Demographics + + + | Address | [address] | | | [place] [address] | + + + | Home Phone [...] Providers + +------+ + | Care Barrel Builder Name | Role | Phone | [...] + + | 04/25/ | Emergency | [facility] | Billy Romo, | Concussion, without | | 2016 | | HOSPITAL EMERGENCY | [address] | LOC, initial | | | | [place] [address] MEDICAL | Structure [employer], | encounter (Primary | | | | [place], [place] | [place] [address] | Dx); Cervical | | | | [address] | [phone] | strain, acute, | | | | [phone] | | initial encounter | +--------+ + [...] sent through Care Everywhere.CERVICAL STRAIN , UNDERSTANDING (PRYDEINIG)CONCUSSION, AFTER (PRYDEINIG)CONCUSSION, COPING WITH (PRYDEINIG)manish disla in this encounter Medications at Time [...] [place] | | | | | | [address] | | | | | | | [...] L?MRN: | | | | | | [id number] | | | [id number] | | | his | | | [...] | | | St. | | | [place] | | | y H. | | [...] | | | St. | | | [place] | | | y | | | [...] | | | n, | | | MAT CUTTER, | | | MAT CUTTER | | | Primar | | | [...] Performed At | + + + | [address] | | | [place], [place] [address] | | | NAME: KORI HARMON DATE: 04/25/2017 | | | : 1945 PT GENDER: F ROOM: ER PHYSICIAN: | | | BILLY ROMO PID#: [id number] CC TO: MR#: | | | PROCEDURE: [...] Rad Results In - 04/27/2017 9:10 AM [facility] | | [address] [facility] | | [place], [place] [address] | | | | | | NAME: KORI HARMON DATE: 04/25/2017 | | : 1945 PT GENDER: F ROOM: ER | | PHYSICIAN: BILLY ROMO PID#: [id number] | | CC TO: MR#: | | [...] Performed At | + + + | [address] | | | [place], [place] [address] | | | NAME: KORI HARMON DATE: 04/25/2017 | | | : 1945 PT GENDER: F ROOM: ER PHYSICIAN: | | | BILLY ROMO PID#: [id number] CC TO: MR#: | | | PROCEDURE: [...] Results In - 04/27/2017 9:10 AM PDT [facility] | | [address] [place] [address] | | [place], [place] [address] | | | | | | NAME: KORI HARMON DATE: 04/25/2017 | | : 1945 PT GENDER: F ROOM: ER | | PHYSICIAN: BILLY ROMO PID#: [id number] | | CC TO: MR#: | | [...] | + + + + + | [facility] | [address] | [place] [address] | [phone] | | HOSPITAL LABORATORY | | | [...] 99 | 70 - 110 mg/dL | [facility] | | | | | | [facility] | | | | | | HOSPITAL | | | | | | LABORATORY | | + + + + + + | BUN | 21 | 5 - 26 mg/dL | [facility] | | | | | | [facility] | | | | | | HOSPITAL | | | | | | LABORATORY | | + + + + + + | Creatinine | 0.83 | >.60-<1.30 | [facility] | | | | | mg/dL | COMMUNITY | | | | | | HOSPITAL | | | | | | LABORATORY | | + + + + + + | eGFR if not | >60Comment: GLOMERULAR | >=60 | [facility] | | | | FILTRATION | mL/min/1.73m2 | [facility] | | | [place] | RATE,ESTIMATED | | HOSPITAL | | | | mL/min/1.69h0Ycvg than | | LABORATORY | | | [...] | + + + + + | [facility] | [address] | [place] [address] | [phone] | | HOSPITAL LABORATORY | | | | + + + + + CBC with Differential (04/25/2017 7:20 PM PDT) + + + + + + | Component | Value | Ref Range | Performed | Pathologist | | | | | At | Signature | + + + + + + | WBC | 6.1 | >4.5-<11.0 K/uL | [facility] | | | | [...] | + + + + + | [facility] | [address] | [place] [address] | [phone] | | HOSPITAL LABORATORY | | | | + + + + + documented in this encounter Visit Diagnoses + + | Diagnosis | + + | Concussion, without LOC, initial encounter - Primary | + + | Cervical strain, acute, initial encounter | + + documented in this encounter
--- OUTSIDE RECORDS SUMMARY | ~2019-09-24 | XMS | Encounter Summary ---
Demographics + + + | Address | [address] | | | [place] [address] | + + + | Home Phone [...] Team Providers + +------+ + | Care Bioinformatics Analyst Name | Role | Phone | + +------+ + | Miquel Calhoun MD | PCP | | + +------+ + Encounter Details +--------+ + + + + | Date | Type | Department | Care Team | Description | +--------+ + + + + | 09/17/ | Telephone | [facility] | Khushbu Cortez, | | | 2012 | | [facility] | HOME AP[place]ER [place], [place] | | | | | [address] | [address] | | | | | [address] | | | | | | Aravind Hannon | | | | | | [place], [place] | | | | | | [address] | | | | | | [phone] | | | +--------+ + + + [...]
--- OUTSIDE RECORDS SUMMARY | ~2019-09-24 | XMS | Encounter Summary ---
Demographics + + + | Address | [address] | | | [place] [address] | + + + | Home Phone [...] Providers + +------+ + | Care Appeals Analyst Name | Role | Phone | + +------+ + | Wendi Aiekn | PCP | | + +------+ + Encounter Details +--------+ + + + + | Date | Type | Department | Care Team | Description | +--------+ + + + + | 05/10/ | Imaging | [facility] | Provider, | | | 2018 | Exam | MED CTR EXTERNAL | [address] | | | | | IMAGING | Vas[place]DEZ | | | | | [phone] | [place] [address] | | +--------+ + + + + [...] | | | | | | DR[address] [facility] | | | | | | [address] | | | | | | | [...]
--- OUTSIDE RECORDS SUMMARY | ~2019-09-24 | XMS | Encounter Summary ---
Demographics + + + | Address | [address] | | | [place] [address] | + + + | Home Phone [...] Providers + +------+ + | Care Automobile Seat Cover Installer Name | Role | Phone | [...] Vasquez [place]Z | | | | | [phone] | [place] [address] | | +--------+ + + + + [...] | | | | | | [address] [facility] | | | | | | [address] | | | | | | | [...]
--- OUTSIDE RECORDS SUMMARY | ~2019-09-24 | XMS | Encounter Summary ---
Demographics + + + | Address | [address] | | | [place] [address] | + + + | Home Phone [...] Providers + +------+ + | Care Roller Embosser Name | Role | Phone | + [...] pain log reponse) | | | | [place], | [place] | | | | | [place] [address] | [address] | | | | | [phone] | | | +--------+ + + + [...] [place] | | | | | | [address] | | | | | | | | +--------+---------+ + + + documented as of this encounter Visit Diagnoses Not on filedocumented in this encounter"
--- OUTSIDE RECORDS SUMMARY | ~2019-09-24 | XMS | Encounter Summary ---
Demographics + + + | Address | [address] | | | [place] [address] | + + + | Home Phone [...] Team Providers + +------+ + | Care Crop Adjuster Name | Role | Phone | [...] | | | | [place] | [place] [address] | [address] | | | | | Lumbar | Phone: | Phone: | | | | | radiculopath | [phone] | [phone] | | | | | y | Fax: | Fax: | | | | | Procedures | [phone] | [phone] | | | | | HIM 04/17/18 [...] fracture of fifth | | | | [place], | [address] [place] | lumbar vertebra, | | | | [place] [address] | [place] [address] | sequela (Primary | | | | [phone] | [phone] | Dx); Lumbar | | | | [...] [place] | | | | | | [address] | | | | | | | | +--------+---------+ + + + + + +--------+ + + | Name | Type | Priori | Associated Diagnoses | Order Schedule | | | | ty | | | + + +--------+ + + | AMB REFERRAL TO [facility] | Outpatient | Routin | [...]
--- OUTSIDE RECORDS SUMMARY | ~2019-09-24 | XMS | Encounter Summary ---
Demographics + + + | Address | [address] | | | [place] [address] | + + + | Home Phone [...] Team Providers + +------+ + | Care Millwright Helper Name | Role | Phone | + +------+ + | Wendi Aiken | PCP | | + +------+ + Encounter Details +--------+ + + + + | Date | Type | Department | Care Team | Description | +--------+ + + + + | 04/07/ | Imaging | [facility] | Provider, | | | 2018 | Exam | MED CTR EXTERNAL | [address] | | | | | IMAGING | [address] | | | | | [phone] | [place] [address] | | +--------+ + + + + [...] | | | | | | DR[address] [facility] | | | | | | [address] | | | | | | | [...]
--- OUTSIDE RECORDS SUMMARY | ~2019-09-24 | XMS | Encounter Summary ---
Demographics + + + | Address | [address] | | | [place] [address] | + + + | Home Phone [...] Team Providers + +------+ + | Care Dehairing Machine Tender Name | Role | Phone [...] Provider Unknown | | | | | [place], [place] | | | | | | [address] | (Fax) | | | | | [phone] | | | +--------+ + + + [...] [place] | | | | | | [address] | | | | | | | [...]
--- OUTSIDE RECORDS SUMMARY | ~2019-09-24 | XMS | Encounter Summary ---
Demographics + + + | Address | [address] | | | [place] [address] | + + + | Home Phone [...] Providers + +------+ + | Care Business Strategist Name | Role | Phone | [...] + + | 11/01/ | Telephone | [facility] | Shay Dietz | Medication Problem | | 2012 | | PHYSIATRY [address] | [address], [address] | | | | | [place], | [place], [place] | | | | | [place] [address] | [address] | | | | | [phone] | | | +--------+ + + + [...] [place] | | | | | | [address] | | | | | | | | +--------+---------+ + + + documented as of this encounter Visit Diagnoses + + | Diagnosis | + + | Back pain - Primary Backache, unspecified | + + documented in this encounter"
--- OUTSIDE RECORDS SUMMARY | ~2019-09-24 | XMS | Encounter Summary ---
Demographics + + + | Address | [address] | | | [place] [address] | + + + | Home Phone [...] Team Providers + +------+ + | Care Demographer Name | Role | Phone | + [...] [address] | | | | | [facility] [address] | [address] [facility] [place], | | | 08/07/ | | 8th [place], [place] | [place] [address] | | | 2004 | | [address] | [phone] | | | | | [phone] | | | +--------+ + + + [...] [place] | | | | | | [address] | | | | | | | | +--------+---------+ + + + documented as of this encounter Visit Diagnoses Not on filedocumented in this encounter"
--- OUTSIDE RECORDS SUMMARY | ~2019-09-24 | XMS | Encounter Summary ---
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
--- OUTSIDE RECORDS SUMMARY | ~2019-09-24 | XMS | Encounter Summary ---
Demographics + + + | Address | [address] | | | [place] [address] | + + + | Home Phone [...] Team Providers + +------+ + | Care Supervising Librarian Name | Role | Phone | [...] for | | 2016 | | at [facility] [address] | [address] | new pt appt) | | | | [place] Mailcode: | [address] [facility] | | | | | [address] | [place] [address] | | | | | Health and Healing, | [phone] | | | | | [facility] | | | | | | floor [place], [place] | | | | | | [address] | | | | | | [phone] | | | +--------+ + + + [...]
--- OUTSIDE RECORDS SUMMARY | ~2019-09-24 | XMS | Encounter Summary ---
Demographics + + + | Address | [address] | | | [place] [address] | + + + | Home Phone [...] Team Providers + +------+ + | Care Molecular Genetic Pathologist Name | Role | Phone | + [...] [address] | | | | | [place], | [place], [place] | | | | | [place] [address] | [address] | | | | | [phone] | | | +--------+ + + + [...] [place] | | | | | | [address] | | | | | | | | +--------+---------+ + + + documented as of this encounter Visit Diagnoses Not on filedocumented in this encounter"
--- OUTSIDE RECORDS SUMMARY | ~2019-09-24 | XMS | Encounter Summary ---
Demographics + + + | Address | [address] | | | [place] [address] | + + + | Home Phone [...] Providers + +------+ + | Care Product Representative Name | Role | Phone | + +------+ + | Miquel Calhoun MD | PCP | | + +------+ + Encounter Details +--------+ + + + + | Date | Type | Department | Care Team | Description | +--------+ + + + + | 05/01/ | Hospital | [facility] | Shay Dietz | | | 2012 | Encounter | MED CTR XRAY [address] | [address], [address] | | | | | [place] | [facility] [place], [place] | | | | | [place] [address] | [address] | | | | | [phone] | | | +--------+ + + + [...] [place] | | | | | | [address] | | | | | | | [...] + + + | [facility] | [place] | | Department [address] | [facility] | | [ rep [facility]] [ rep [facility] | | [facility]] Signed | - IMAGING | | | | | Patient Name: WAYNEOKRI PARIS | | | Physician: OMID : [id number] Age: 67 Sex: F Unit | | | #: [id number] Exam Date: 05/01/13 Location: | | | IMG.INV Report #: [id number] Page: | | | %(RAD)RES..mtdd.print.filter("pg") of %(RAD) | | | RES..mtdd.print.filter("tpg") | | | | | | Accession Number: [id number] | | | PROCEDURE NOTE LUMBAR FACET [...] Transcribed | | | Date/Time: 05/09/2013 18:53 Hospital Tray Service Worker: | | | <<Signature on File>> | | | Shay Mukherjee | | | MD J [id number]/15/132101 <Electronically signed by Shay Mukherjee | | | J Luis SALGADO> Shay Dietz MD 05/09/131812 | | | Hospital Tray Service Worker: Yudelka [id number]/10/[id number] | | | | | + + + + + + + + | Performing | Address | City/State/Zipcode | Phone Number | | Organization | | | | + + + + + | [facility] | [address] | [place] | [phone] | | [facility] | | [address] | | | - IMAGING | | | | + + + + + documented in this encounter Visit Diagnoses Not on filedocumented in this encounter
--- OUTSIDE RECORDS SUMMARY | ~2019-09-24 | XMS | Clinical Summary ---
Demographics + + + | Address | [address] | | | [place] [address] | + + + | Home Phone [...] Team Providers + +------+ + | Care Glory Hole Tender Name | Role | Phone | + +------+ + | Oxana Nye | PCP | | + +------+ + Source Comments RADHA is fully live on both [facility] and [facility] InPatient.[facility] Allergies + + + [...] MEDICARE | MEDICA | xxxxxxxxxx | | [phone] | [address] | Medica | | | RE A & | | [phone] | [address] | [phone] | re | | | B | | esent | | [place] | | | | | | | | [address] | | + +--------+ +--------+ + +--------+ | [employer] | AARP | xxxxxxxxxx | 07/01/20 | [phone] | [address] | Indemn | | RETIRED PEOPLE | | | 12-Pre | 9 | [address] | ity | | | | | sent | | [place] | | | | | | | | [address] | | + +--------+ +--------+ + +--------+ [...] jose | | | 8 (Home) | [address] | + +--------+ +--------+ + +
--- OUTSIDE RECORDS SUMMARY | ~2019-09-24 | XMS | Encounter Summary ---
Demographics + + + | Address | [address] | | | [place] [address] | + + + | Home Phone [...] Team Providers + +------+ + | Care Geographic Information System Surveyor Name | Role | Phone | + [...] [address] | | | | | [place], | [place], [place] | | | | | [place] [address] | [address] | | | | | [phone] | | | +--------+ + + + [...] [place] | | | | | | [address] | | | | | | | | +--------+---------+ + + + documented as of this encounter Visit Diagnoses Not on filedocumented in this encounter"
--- OUTSIDE RECORDS SUMMARY | ~2019-09-24 | XMS | Encounter Summary ---
Demographics + + + | Address | [address] | | | [place] [address] | + + + | Home Phone [...] Team Providers + +------+ + | Care Photogrammetric Tech Name | Role | Phone | [...] | | 2016 | Encounter | at [facility] [address] | [address] [facility] | | | | | [place]any Mailcode: | [facility] [address] [place], | | | | | [address] | [place] [address] | | | | | Health and Healing, | [phone] | | | | | [facility] | | | | | | floor [place], [place] | | | | | | [address] | | | | | | [phone] | | | +--------+ + + + [...]
--- OUTSIDE RECORDS SUMMARY | ~2019-09-24 | XMS | Encounter Summary ---
Demographics + + + | Address | [address] | | | [place] [address] | + + + | Home Phone [...] Providers + +------+ + | Care Director Foundation Name | Role | Phone | + [...] low back | PA-C [address] | [facility] [place] | | | | | pain with | [address] | [address] | | | | | right-sided | [place] | Phone: | | | | | sciatica | [address] | [phone] | | | | | Facet | Phone: | Fax: | | | | | arthritis of | [phone] | [phone] | | | | | lumbar | Fax: | | | | | | region | [phone] | | | | | | Adolescent [...] | | | [place], | [address] | | | | | Trochanteric | [place], | [place], | | | | | bursitis of | PA-C [address] | [place] | | | | | right hip | [address] | [address] | | | | | Procedures | [place] | Phone: | | | | | [place] | [address] | [phone] | | | | | Joint | Phone: | Fax: | | | | | Injection | [phone] | [phone] | | | | | Right | Fax: | | | | | | | [phone] | | +--------+--------+ + + + + [...] + | 02/08/ | Office | [facility] [place] | Shiracz, | Chronic bilateral | | 2017 | Visit | PHYSIATRY [address] | [address] | low back pain with | | | | [place], | [address] [place], | right-sided sciatica | | | | [place] [address] | [place] [address] | (Primary Dx); Facet | | | | [phone] | [phone] | arthritis of lumbar | | | [...] of blood sugars if you are diabetic. cloth printing inspector risk can lead to osteoporosis which is [...] of the procedure you must provide a bull driver to take you home. For all [...] working more h ours due to the Exam18 Round up. Her pain back is worse [...] has no apparent deficits with short or detention memory. 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 Unfortunately she lola nues to have significant [...] [place] | | | | | | [address] | | | | | | | [...] Diagnosis: Lumbar Spondylosis and | [facility] | | Trochanteric Bursitis ICD-10 Code M47.816 and ICD-10 [place] | [facility] | | Harshal Rubio presents to the [...] | + + + + + | [address] | [address] | [place], [place] | [phone] | | [facility] | | [address] | | | - IMAGING | | [...]
--- OUTSIDE RECORDS SUMMARY | ~2019-09-24 | XMS | Encounter Summary ---
Demographics + + + | Address | [address] | | | [place] [address] | + + + | Home Phone [...] Team Providers + +------+ + | Care Obstetric Anaesthetist Name | Role | Phone | + [...] Required | Rehabilitatio | | [place], | [place] | | | | n | radiculopath | PA-C [address] | [place], | | | | | y Chronic | [address] | [place] [address] | | | | | low back | [place], [place] | Phone: | | | | | pain Facet | [address] | [phone] | | | | | arthritis of | Phone: | Fax: | | | | | lumbar | [phone] | [phone] | | | | | region | Fax: | | | | | | [place] | [phone] | | | | | | stenosis [...] + + | 04/17/ | Office | [facility] | Shahnazdanowicz, | Left lumbar | | 2013 | Visit | PHYSIATRY [address] | [address] | radiculopathy | | | | [place], | [facility], | (Primary Dx); | | | | [place] [address] | [place] [address] | Chronic low back | | | | [phone] | [phone] | pain; Facet | | | | [...] of the procedure you must provide a taxi truck driver to take you home. For [...] this prescription as her [facility] care provider will not refill them either. [...] Therapy prescription has been given to the [facility]. 3. I did discussed neuropathic [...] [place] | | | | | | [address] | | | | | | | [...] radiculopathy ICD-9 Code 724.4 Kori Caputo | [facility] | | Joanne presents to the [...] + | [facility] | [address] [place] [address] | [place], [place] | [phone] | | [facility] | | [address] | | | - IMAGING | | [...]
--- OUTSIDE RECORDS SUMMARY | ~2019-09-24 | XMS | Encounter Summary ---
Demographics + + + | Address | [address] | | | [place] [address] | + + + | Home Phone [...] Providers + +------+ + | Care Engineering Analyst Name | Role | Phone | + +------+ + | Miquel Calhoun MD | PCP | | + +------+ + Encounter Details +--------+ + + + + | Date | Type | Department | Care Team | Description | +--------+ + + + + | 11/14/ | Hospital | [facility] | Earnest Acosta MD | Hypothyroid; History | | 2013 - | Encounter | [facility] | [address] [facility] | of oral aphthous | | | | CLINICAL DECISION | [address] [place], | ulcers; Anemia, | | | | [address] | [place] [address] | unspecified; | | 2013 | | [place], [place] | [phone] | Aspiration pneumonia | | | | [address] | | ([facility]); COPD | | | | [phone] | | (chronic obstructive | | | | | | pulmonary disease) | | | | | | ([facility]); Generalized | | | | [...] 1140 Date of Service: 11/19/131920 Status: Signed Confectionery Maker: Fran Barnes MD (Physician) Related Notes: Original Note by Fran Barnes MD (Physician) filed at 11/20/13 1418 Patient ID: Ronald Gutierreztyfawthrop [id number] 68 y.o. 1945 Admit date: 11/14/2013 Discharge [...] - 99 mg/dL Final Testing performed at [facility], [address] [place] [address] BUN Date Value Range Status 11/19/2013 12 8 - 25 mg/dL Final Testing performed at [facility], [address] [place] [address] CREATININE Date Value Range Status 11/19/2013 0.80 0.50 - 1.00 mg/dL Final Testing performed at [facility], [address] [place] [address]160 BUN/CREAT Date Value Range Status 11/19/2013 15 Final Testing performed at [facility], [address] [place] [address] 384[address] TOTAL PROTEIN Date Value Range Status 11/17/2013 5.2* 6.3 - 8.2 g/dL Final Testing performed at [address] [address] GLOBULIN Date Value Range Status 11/17/2013 2.1 1.3 - 4.9 g/dL Final Testing performed at [address] [address] TBIL Date Value Range Status 11/17/2013 0.6 0.1 - 1.5 mg/dL Final Testing performed at [address] [address] ALT Date Value Range Status 11/17/2013 21 10 - 65 U/L Final Testing performed at [facility], [address] [place] [address] 47188 AST Date Value Range Status 11/17/2013 19 10 - 45 U/L Final Testing performed at [address] [address] SODIUM Date Value Range Status 11/19/2013 133* 135 - 143 mmol/L Final Testing performed at [address] [address] POTASSIUM Date Value Range Status 11/19/2013 3.9 3.5 - 4.9 mmol/L Final Testing performed at [facility], [address] [place] [address] CHLORIDE Date Value Range Status 11/19/2013 101 99 - 109 mmol/L Final Testing performed at [facility], [address] [place] [address] CO2 Date Value Range Status 11/19/2013 24 23 - 32 mmol/L Final Testing performed at [facility], [address] [place] [address] ANION GAP AGAP Date Value Range Status 11/19/2013 12 5 - 20 mmol/L Final Testing performed at [facility], [address] [place] [address] X-ray Lumbar Spine Limited 2-3 Views 11/18/2013 [...] emergency department, who was admitted to [facility] on November 14, 2013, when she was found to be unresponsive by EMS and thought to be secondary to Flexeril overdose and alcohol intoxication, and alcohol level was more than 300 , and patient was found to be hypotensive. Hence, she was intubated and brought to the [facility] from outside hospital and was started on dopamine and norepinephri ne and Tylenol level was checked, which was 44, for which she was put on acetylcysteine prot ocol and was transferred to medical floor on November 15, 2013, and Dr. Moore from psychia tric service was consulted after patient stabilized and she was taken to [facility] under Dr. Diana's care. 2. Chronic back pain, for which patient was discharged to [facility] on [place] in p.r.n. 3. Aphthous [...] No erythema. No pallor. Disposition: [facility] in patient psychiatric facility Patient Instructions: Medication [...] for this visit. Miquel Calhoun MD [address] [place] [address] In 1 week Signed: FRAN BARNES 11/19/2013 [...] 11/19/132053 Date of Service: 11/19/132029 Status: Signed Confectionery Maker: Ruby Chávez RN (Registered Nurse) Pt currently on psychiatric hold; Transport here to take pt to [facility]. Pt complains of yessica n; Given Ultram (See MAR) VSS; Afebrile; No SOB. Nurse to nurse given to [facility]. Pt dc'd by bebo. Ruby Chávez 11/19/2013 Fran Porter MD - 11/19/2013 3:24 PM PSTFormatting of this note might be different from the or iginal. Progress Notes by Fran Barnes MD at 11/19/131523 Author: Fran Barnes MD Service: Hospitalist Author Type: Physician Filed: 11/19/131535 Date of Service: 11/19/131523 Status: Addendum Confectionery Maker: Fran Barnes MD (Physician) Related Notes: Original Note by Fran Barnes MD (Physician) filed at 11/19/13 1535 [facility] Service: Hospitalist Progress Note Ronald Kowthrleighann 68 y.o. [id number] 306/306-2 female MIQUEL Suarez [facility] Day: LOS: 5 days Patient Summary: .A 68-year-old female with past medical history of depression with m ultiple suicide attempts in the past, history of COPD, which she attributes to paint inhalat ion, history of anxiety, restless leg syndrome, GERD, diabetes mellitus type 2, diet control led, hypothyroidism, who was admitted to [facility] on the November 14, when the patient was found to be unresponsive by EMS and thought to be secondary to Fle xeril overdose and alcohol intoxication as her alcohol level was more than 300. The patient was found to be hypertensive, hence she was intubated and brought to the [facility] where she was put on dopamine, [...] by PCR (TAT 3 hr in house) [[id number]] Collected:11/19/13 0703 Specimen Information:Stool / Stool Updated:11/19/13806 Toxigenic C Difficile NEGATIVE 027 NAP1 BI 027 NAP1 BI PRESUMPTIVE NEGATIVE Magnesium [[id number]] Collected:11/19/13424 MAGNESIUM 2.2 mg/dL Updated:11/19/13806 Phosphorus [[id number]] Collected:11/19/13424 PHOSPHORUS 4.0 mg/dL Updated:11/19/13806 Basic metabolic panel [[id number]] (Abnormal) Collected:11/19/13424 Specimen Information:Blood Updated:11/19/13 0544 SODIUM 133 (L) mmol/L POTASSIUM 3.9 mmol/L CHLORIDE 101 mmol/L CO2 24 mmol/L ANION GAP AGAP 12 mmol/L GLUCOSE 108 (H) mg/dL BUN 12 mg/dL CREATININE 0.80 mg/dL BUN/CREAT 15 CALCIUM 9.2 mg/dL EGFR >60 mL/min/1.73m2 CBC w/auto diff (reflex to manual) [[id number]] (Abnormal) Collected:11/19/13 0425 Specimen Information:Blood Updated:11/19/13 0540 [...] K/uL MORPHOLOGY Fecal occult blood (in house) [[id number]] Collected:11/19/13 0146 Specimen Information:Stool / Stool Updated:11/19/13 0217 Fecal Occult Blood NEGATIVE Urine culture [[id number]] Collected:11/17/13 1013 Specimen Information:Urine / Urine, Catheter Updated:11/18/13 1710 Specimen Description CATHETERIZED URINE Specimen Description Result: Testing performed at [facility];[address] [place] [address] CULTURE NO GROWTH CULTURE Result: Testing performed at [facility], [address] [place] [address] REPORT STATUS 11/18/2013 FINAL Blood culture, 1 of 2 [[id number]] Collected:11/17/13 1042 Specimen Information:Blood / Blood Updated:11/18/13 1451 Specimen Description BLOOD Specimen Description Result: Testing performed at [facility];[address] [place] [address] SPECIAL REQUESTS Result: REPEAT TEST USING ALTERNATE ASSAYED CONTROL MATERIAL SPECIAL REQUESTS Result: Testing performed at [facility];[address] [place] [address] CULTURE NO GROWTH AT THIS TIME CULTURE Result: Testing performed at [facility], [address] [place] [address] REPORT STATUS PENDING Blood culture, 2 of 2 [[id number]] Collected:11/17/13 1050 Specimen Information:Blood / Blood Updated:11/18/13 1451 Specimen Description BLOOD Specimen Description Result: Testing performed at [facility];[address] [place] [address] SPECIAL REQUESTS PICC LINE SPECIAL REQUESTS Result: Testing performed at [facility];[address] [place] [address] CULTURE NO GROWTH AT THIS TIME CULTURE Result: Testing performed at [facility], [address] [place] [address] REPORT STATUS PENDING Sputum culture [[id number]] Collected:11/17/13 1153 Specimen Information:Sputum / Sputum Updated:11/18/13 1428 Specimen Description SPUTUM Specimen Description Result: Testing performed at [facility];[address] [place] [address] GRAM STAIN GREATER THAN 10 WBCS/LPF GRAM STAIN LESS THAN 10 SEC/LPF GRAM STAIN NO ORGANISMS SEEN GRAM STAIN Result: Testing performed at [facility], [address] [place] [address] CULTURE 1+ NORMAL UPPER RESPIRATORY CURTIS CULTURE Result: Testing performed at [facility], [address] [place] [address] REPORT STATUS PENDING Magnesium [[id number]] Collected:11/18/13 0600 Specimen Information:Blood Updated:11/18/13 1104 MAGNESIUM 2.1 mg/dL Phosphorus [[id number]] Collected:11/18/13 0600 Specimen Information:Blood Updated:11/18/13 1104 PHOSPHORUS 3.8 mg/dL Basic metabolic panel [[id number]] (Abnormal) Collected:11/18/13 0600 Specimen Information:Blood Updated:11/18/13 0716 SODIUM 135 mmol/L POTASSIUM 4.2 mmol/L CHLORIDE 104 mmol/L CO2 24 mmol/L ANION GAP AGAP 11 mmol/L GLUCOSE 110 (H) mg/dL BUN 11 mg/dL CREATININE 0.73 mg/dL BUN/CREAT 15 CALCIUM 9.0 mg/dL EGFR >60 mL/min/1.73m2 TSH [[id number]] Collected:11/18/13 0600 Specimen Information:Blood Updated:11/18/13 0713 TSH 4.28 uIU/mL CBC w/auto diff (reflex to manual) [[id number]] (Abnormal) Collected:11/18/13 0600 Specimen Information:Blood Updated:11/18/13 0647 [...] K/uL BASOPHILS ABS 0.0 K/uL Urine culture [[id number]] Collected:11/16/13 0951 Specimen Information:Urine / Urine, Clean Catch Updated:11/17/13 1618 Specimen Description CLEAN CATCH URINE Specimen Description Result: Testing performed at [address] [address] CULTURE NO GROWTH CULTURE Result: Testing performed at [facility], [address] [place] [address] REPORT STATUS 11/17/2013 FINAL Magnesium [[id number]] (Abnormal) Collected:11/16/13 0407 Specimen Information:Blood Updated:11/17/13 1141 MAGNESIUM 1.6 (L) mg/dL Phosphorus [[id number]] (Abnormal) Collected:11/16/13 0407 Specimen Information:Blood Updated:11/17/13 1141 PHOSPHORUS 1.7 (L) mg/dL Iron panel [[id number]] (Abnormal) Collected:11/17/1357 Specimen Information:Blood Updated:11/17/1318 IRON 31 ug/dL TIBC 155 (L) ug/dL IRON % SAT 20 % Vitamin B12 [[id number]] Collected:11/17/1357 Specimen Information:Blood Updated:11/17/1311 VITAMIN B12 417 pg/mL Folate [[id number]] Collected:11/17/1357 Specimen Information:Blood Updated:11/17/13710 FOLATE 17.7 ng/mL Ferritin [[id number]] Collected:11/17/13556 Specimen Information:Blood Updated:11/17/13 0711 FERRITIN 140 ng/mL Comprehensive metabolic panel [[id number]] (Abnormal) Collected:11/17/13 0557 Specimen Information:Blood Updated:11/17/13 0710 [...] mL/min/1.73m2 CBC w/auto diff (reflex to manual) [[id number]] (Abnormal) Collected:11/17/1357 Specimen Information:Blood Updated:11/17/13 0641 WBC [...] Case Management by ANGELO Lujan at 11/19/13 5834 Author: ANGELO Lujan Service: (none) Author Type: Director [employer] Filed: 11/19/13 7350 Date of Service: 11/19/13 2304 Status: Signed Confectionery Maker: ANGELO Lujan (Director [employer]) CM contacted Crisis Response Unit to inform [facility] that pt is now medically clear for MH eval uation. A DMHP will see pt in the hospital today for eval. CM spoke with IPR MD - he would like to reevaluate pt tomorrow to determine appropriateness for IPR. ANGELO Lujan Rn Neonatal onver hiren Transaction, Provider Unknown - 11/19/2013 12:40 PM PST Progress Notes by Emi Donaldson PT at 11/19/13 1240 Author: Emi Donaldson PT Service: (none) Author Type: Physical Therapist Filed: 11/19/13 1313 Date of Service: 11/19/13 1240 Status: Signed Confectionery Maker: Emi Donaldson PT (Physical Therapist) 11/19/13 1240 [...] and I have a bladder appointment at [facility] I need to take care of otherwise [...] Date of Service: 11/19/13 1020 Status: Signed Confectionery Maker: Emi Donaldson PT (Physical Therapist) 11/19/13 1020 PT Last Visit PT Received On 11/19/13 Requires PT Follow Up Unavailable (getting bed bath, f/u later today for PT as schedule allows) onver hiren Transaction, Provider Unknown - 11/19/2013 4:29 AM PST Nurse Progress Note by Kala Peña RN at 11/19/13 6279 Author: Kala Peña RN Service: (none) Author Type: Registered Nurse Filed: 11/19/13 6213 Date of Service: 11/19/13 0429 Status: Signed Confectionery Maker: Kala Peña, RN (Registered Nurse) Pt slept [...] 11/18/131826 Date of Service: 11/18/131807 Status: Signed Confectionery Maker: Fran Barnes MD (Physician) [facility] Service: Hospitalist Progress Note Ronald Kowtjanene 68 y.o. [id number] 306/306-2 female [facility] Day: LOS: 4 days Patient Summary: .A 68-year-old female with past medical history of depression with m ultiple suicide attempts in the past, history of COPD, which she attributes to paint inhalat ion, history of anxiety, restless leg syndrome, GERD, diabetes mellitus type 2, diet control led, hypothyroidism, who was admitted to [facility] on the November 14, when the patient was found to be unresponsive by EMS and thought to be secondary to Fle xeril overdose and alcohol intoxication as her alcohol level was more than 300. The patient was found to be hypertensive, hence she was intubated and brought to the [facility] where she was put on dopamine, [...] mood is better after she talked with Market Research Associate ,denied any suicidal ideation /thoughts at this moment . Patient c/o generalized weakness and evaluated by PT who recommended SNF and patient wants to know if [facility] [place]. She denied any chest pain, cough,sob ,no [...] Procedure Component Value Units Date/Time Urine culture [[id number]] Collected:11/17/13 1013 Specimen Information:Urine / Urine, Catheter Updated:11/18/13 1710 Specimen Description CATHETERIZED URINE Specimen Description Result: Testing performed at [facility];[address] [facility] [address] CULTURE NO GROWTH CULTURE Result: Testing performed at [facility], [address] [place] [address] REPORT STATUS 11/18/2013 FINAL Blood culture, 1 of 2 [[id number]] Collected:11/17/13 1042 Specimen Information:Blood / Blood Updated:11/18/13 1451 Specimen Description BLOOD Specimen Description Result: Testing performed at [facility] [address] SPECIAL REQUESTS Result: REPEAT TEST USING ALTERNATE ASSAYED CONTROL MATERIAL SPECIAL REQUESTS Result: Testing performed at [facility];[address] [place] [address];[place] [address] CULTURE NO GROWTH AT THIS TIME CULTURE Result: Testing performed at [facility], [address] [place] [address] REPORT STATUS PENDING Blood culture, 2 of 2 [[id number]] Collected:11/17/13 1050 Specimen Information:Blood / Blood Updated:11/18/13 1451 Specimen Description BLOOD Specimen Description Result: Testing performed at [facility] [address] SPECIAL REQUESTS PICC LINE SPECIAL REQUESTS Result: Testing performed at [facility];[address] [facility] [address] CULTURE NO GROWTH AT THIS TIME CULTURE Result: Testing performed at [facility], [address] [place] [address] REPORT STATUS PENDING Sputum culture [[id number]] Collected:11/17/13 1153 Specimen Information:Sputum / Sputum Updated:11/18/13 1428 Specimen Description SPUTUM Specimen Description Result: Testing performed at [facility];[address] [place] [address] GRAM STAIN GREATER THAN 10 WBCS/LPF GRAM STAIN LESS THAN 10 SEC/LPF GRAM STAIN NO ORGANISMS SEEN GRAM STAIN Result: Testing performed at [facility], [address] [place] [address] CULTURE 1+ NORMAL UPPER RESPIRATORY CURTIS CULTURE Result: Testing performed at [facility], [address] [place] [address] REPORT STATUS PENDING Magnesium [[id number]] Collected:11/18/13 0600 Specimen Information:Blood Updated:11/18/13 1104 MAGNESIUM 2.1 mg/dL Phosphorus [[id number]] Collected:11/18/13 0600 Specimen Information:Blood Updated:11/18/13 1104 PHOSPHORUS 3.8 mg/dL Basic metabolic panel [[id number]] (Abnormal) Collected:11/18/13 0600 Specimen Information:Blood Updated:11/18/13 0716 SODIUM 135 mmol/L POTASSIUM 4.2 mmol/L CHLORIDE 104 mmol/L CO2 24 mmol/L ANION GAP AGAP 11 mmol/L GLUCOSE 110 (H) mg/dL BUN 11 mg/dL CREATININE 0.73 mg/dL BUN/CREAT 15 CALCIUM 9.0 mg/dL EGFR >60 mL/min/1.73m2 TSH [[id number]] Collected:11/18/13 06 Specimen Information:Blood Updated:11/18/13 0713 TSH 4.28 uIU/mL CBC w/auto diff (reflex to manual) [[id number]] (Abnormal) Collected:11/18/13 06 Specimen Information:Blood Updated:11/18/13 0647 [...] K/uL BASOPHILS ABS 0.0 K/uL Urine culture [[id number]] Collected:11/16/13 0951 Specimen Information:Urine / Urine, Clean Catch Updated:11/17/13 1618 Specimen Description CLEAN CATCH URINE Specimen Description Result: Testing performed at [facility];[address] [place] [address] CULTURE NO GROWTH CULTURE Result: Testing performed at [facility], [address] [place] [address] REPORT STATUS 11/17/2013 FINAL Magnesium [[id number]] (Abnormal) Collected:11/16/13 0407 Specimen Information:Blood Updated:11/17/13 1141 MAGNESIUM 1.6 (L) mg/dL Phosphorus [[id number]] (Abnormal) Collected:11/16/13 0407 Specimen Information:Blood Updated:11/17/13 1141 PHOSPHORUS 1.7 (L) mg/dL Iron panel [[id number]] (Abnormal) Collected:11/17/13556 Specimen Information:Blood Updated:11/17/1318 IRON 31 ug/dL TIBC 155 (L) ug/dL IRON % SAT 20 % Vitamin B12 [[id number]] Collected:11/17/13556 Specimen Information:Blood Updated:11/17/1311 VITAMIN B12 417 pg/mL Folate [[id number]] Collected:11/17/13556 Specimen Information:Blood Updated:11/17/13710 FOLATE 17.7 ng/mL Ferritin [[id number]] Collected:11/17/13556 Specimen Information:Blood Updated:11/17/1311 FERRITIN 140 ng/mL Comprehensive metabolic panel [[id number]] (Abnormal) Collected:11/17/13556 Specimen Information:Blood Updated:11/17/13709 SODIUM 134 [...] mL/min/1.73m2 CBC w/auto diff (reflex to manual) [[id number]] (Abnormal) Collected:11/17/13556 Specimen Information:Blood Updated:11/17/13640 WBC 7.8 [...] K/uL BASOPHILS ABS 0.0 K/uL MORPHOLOGY Potassium [[id number]] Collected:11/16/13 1112 Specimen Information:Blood Updated:11/16/13 1133 POTASSIUM 3.6 mmol/L Sputum culture [[id number]] Collected:11/14/13 2055 Specimen Information:Sputum / Tracheal Aspirate Updated:11/16/13 1018 Specimen Description TRACHEAL ASPIRATE Specimen Description Result: Testing performed at [facility];[address] [place] [address];[place] [address] GRAM STAIN GREATER THAN 10 WBCS/LPF GRAM STAIN LESS THAN 10 SEC/LPF GRAM STAIN 2+ GRAM POSITIVE COCCI GRAM STAIN 1+ GRAM POSITIVE RODS GRAM STAIN Result: Testing performed at [address] [address] CULTURE 2+ NORMAL UPPER RESPIRATORY CURTIS CULTURE Result: Testing performed at [facility], [address] [place] [address] REPORT STATUS 11/16/2013 FINAL Acetaminophen level [[id number]] (Abnormal) Collected:11/16/13 0755 Specimen Information:Blood Updated:11/16/13 0828 ACETAMINOPHEN 3.7 (L) ug/mL CBC w/auto diff (reflex to manual) [[id number]] (Abnormal) Collected:11/16/13 0407 Specimen Information:Blood Updated:11/16/13 0503 [...] BASOPHILS ABS 0.0 K/uL Basic metabolic panel [[id number]] (Abnormal) Collected:11/16/13406 Specimen Information:Blood Updated:11/16/13439 SODIUM 143 mmol/L POTASSIUM 3.1 (L) mmol/L CHLORIDE 109 mmol/L CO2 27 mmol/L ANION GAP AGAP 10 mmol/L GLUCOSE 78 mg/dL BUN 7 (L) mg/dL CREATININE 0.77 mg/dL BUN/CREAT 9 CALCIUM 7.8 (L) mg/dL EGFR >60 mL/min/1.73m2 Acetaminophen level [[id number]] (Abnormal) Collected:11/16/13406 Specimen Information:Blood Updated:11/16/13439 ACETAMINOPHEN 4.5 (L) ug/mL Acetaminophen level [[id number]] (Abnormal) Collected:11/16/136 Specimen Information:Blood Updated:11/16/138 ACETAMINOPHEN 5.2 [...] Echo Cardiac Adult Limited 11/15/2013 Patient Name: ROANLD CASTAÑEDA Date of : 1945 Performing Physician: [...] (none) Author Type: Registered Nurse Filed: 11/18/13 6395 Date of Service: 11/18/131805 Status: Signed Confectionery Maker: Donita Hunter RN (Registered Nurse) associate software development engineer at bedside, pt seeming uplifted by conversation with evaluation specialist. PCC in and asked t hat this RN not remove cords, call-light cord and other items nearby pt as paraoptometric had con tacted her regarding this RN's discussion that per policy and patients statements indicating that she intended to cause her self harm this RN felt it would be best to move items that s he could use to harm herself away from her after she finished speaking with the evaluation specialist. Th is RN has increased rounding, line of site at RN station and paraoptometric continues to be in pl su[place]. Pt overall mood continue to be melancholy and tearful, but has not threatened to do chapito f harm since her discussion with the evaluation specialist. Pt encouraged to express her emotions to staf f. Pt complains of diffuse pain, and desire to go to [place]. Pt medicated for pain per DEC. Wi ll continue to monitor closely.DONITA HUNTER RN onver hiren Transaction, Provider Unknown - 11/18/2013 2:59 PM PST Progress Notes by Franky Mcclain at 11/18/13 5648 Author: Franky Mcclain Service: (none) Author Type: Fishing Vessel Deckhand Filed: 11/18/13 6008 Date of Service: 11/18/13 5134 Status: Signed Confectionery Maker: Franky Mcclain (Fishing Vessel Deckhand) Received pt's request via RN for "someone [...] but now belongs to the "[employer]odoxy" and [facility]. She states that [...] Date of Service: 11/18/13 1208 Status: Signed Confectionery Maker: Donita Hunter RN (Registered Nurse) Fishing Vessel Deckhand called to be with patient,, paraoptometric at bedside. Pt indicating desire to harm [...] 0615 Date of Service: 11/18/13612 Status: Signed Confectionery Maker: Kala Peña RN (Registered Nurse) Pt slept [...] 11/17/135 Date of Service: 11/17/131823 Status: Signed Confectionery Maker: Dick De Santiago RN (Registered Nurse) Pt [...] Date of Service: 11/17/13 1341 Status: Signed Confectionery Maker: Sharif Romero (Fishing Vessel Deckhand) I visited with Pt to assess her [...] Date of Service: 11/17/13 113 Status: Signed Confectionery Maker: Emi Donaldson PT (Physical Therapist) 11/17/13 1133 [...] Notes by Emi Donaldson PT at 11/17/13 0920 Author: Emi Donaldson PT Service: (none) Author Type: Physical Therapist Filed: 11/17/13 7513 Date of Service: 11/17/13 1133 Status: Signed Confectionery Maker: Emi Donaldson PT (Physical Therapist) 11/17/13 1133 [...] Recommendations SNF Equipment Recommended (pending improvement, lift senior analytic consultant c/s) Prior Function Level of [place] Modified independent with functional mobility;Modified independent wi [...] Date of Service: 11/17/13 1002 Status: Signed Confectionery Maker: Fran Barnes MD (Physician) Related Notes: Original Note by Fran Barnes MD (Physician) filed at 11/17/13 1016 [facility]: Hospitalist Progress Note Ronald Kowthrleighann 68 y.o. [phone] 306/306-2 female [facility] Day: LOS: 3 days Patient Summary: .A 68-year-old female with past medical history of depression with m ultiple suicide attempts in the past, history of COPD, which she attributes to paint inhalat ion, history of anxiety, restless leg syndrome, GERD, diabetes mellitus type 2, diet control led, hypothyroidism, who was admitted to [facility] on the November 14 014, when the patient was found to be unresponsive by EMS and thought to be secondary to Fle xeril overdose and alcohol intoxication as her alcohol level was more than 300. The patient was found to be hypertensive, hence she was intubated and brought to the [facility] where she was put on dopamine, [...] Center. The patient's 2 sons live in [place], and she does not know the phone [...] Procedure Component Value Units Date/Time Iron panel [[id number]] (Abnormal) Collected:11/17/13556 Specimen Information:Blood Updated:11/17/13717 IRON 31 ug/dL TIBC 155 (L) ug/dL IRON % SAT 20 % Vitamin B12 [[id number]] Collected:11/17/13556 Specimen Information:Blood Updated:11/17/13710 VITAMIN B12 417 pg/mL Folate [[id number]] Collected:11/17/13556 Specimen Information:Blood Updated:11/17/13710 FOLATE 17.7 ng/mL Ferritin [[id number]] Collected:11/17/13556 Specimen Information:Blood Updated:11/17/13710 FERRITIN 140 ng/mL Comprehensive metabolic panel [[id number]] (Abnormal) Collected:11/17/13556 Specimen Information:Blood Updated:11/17/13709 SODIUM 134 [...] mL/min/1.73m2 CBC w/auto diff (reflex to manual) [[id number]] (Abnormal) Collected:11/17/13556 Specimen Information:Blood Updated:11/17/13 06 WBC [...] BASOPHILS ABS 0.0 K/uL MORPHOLOGY Urine culture [[id number]] Collected:11/16/13 0951 Specimen Information:Urine / Urine, Clean Catch Updated:11/16/13 1144 Potassium [[id number]] Collected:11/16/13 1112 Specimen Information:Blood Updated:11/16/13 1133 POTASSIUM 3.6 mmol/L Sputum culture [[id number]] Collected:11/14/13 2055 Specimen Information:Sputum / Tracheal Aspirate Updated:11/16/13 1018 Specimen Description TRACHEAL ASPIRATE Specimen Description Result: Testing performed at [facility];[address] [place] [address];[place] [address] GRAM STAIN GREATER THAN 10 WBCS/LPF GRAM STAIN LESS THAN 10 SEC/LPF GRAM STAIN 2+ GRAM POSITIVE COCCI GRAM STAIN 1+ GRAM POSITIVE RODS GRAM STAIN Result: Testing performed at [address] [address] CULTURE 2+ NORMAL UPPER RESPIRATORY CURTIS CULTURE Result: Testing performed at [facility], [address] [place] [address] REPORT STATUS 11/16/2013 FINAL Acetaminophen level [[id number]] (Abnormal) Collected:11/16/13 0755 Specimen Information:Blood Updated:11/16/13 0828 ACETAMINOPHEN 3.7 (L) ug/mL Magnesium [[id number]] Collected:11/16/13 0407 Specimen Information:Blood Updated:11/16/13 0800 Phosphorus [[id number]] Collected:11/16/13 0407 Specimen Information:Blood Updated:11/16/13 0800 CBC w/auto diff (reflex to manual) [[id number]] (Abnormal) Collected:11/16/13 0407 Specimen Information:Blood Updated:11/16/13 0503 [...] BASOPHILS ABS 0.0 K/uL Basic metabolic panel [[id number]] (Abnormal) Collected:11/16/13 0407 Specimen Information:Blood Updated:11/16/13 0440 SODIUM 143 mmol/L POTASSIUM 3.1 (L) mmol/L CHLORIDE 109 mmol/L CO2 27 mmol/L ANION GAP AGAP 10 mmol/L GLUCOSE 78 mg/dL BUN 7 (L) mg/dL CREATININE 0.77 mg/dL BUN/CREAT 9 CALCIUM 7.8 (L) mg/dL EGFR >60 mL/min/1.73m2 Acetaminophen level [[id number]] (Abnormal) Collected:11/16/13 0407 Specimen Information:Blood Updated:11/16/13 0440 ACETAMINOPHEN 4.5 (L) ug/mL Acetaminophen level [[id number]] (Abnormal) Collected:11/16/13 0036 Specimen Information:Blood Updated:11/16/13 0058 ACETAMINOPHEN 5.2 (L) ug/mL Troponin I [[id number]] (Abnormal) Collected:11/15/13 1602 Specimen Information:Blood Updated:11/15/13 1651 TROPONIN I 0.208 (H) ng/mL CK MB [[id number]] Collected:11/15/13 1602 MMB 3.4 ng/mL Updated:11/15/13 1651 CK-MB Index 2.4 CPK [[id number]] Collected:11/15/13 1602 Specimen Information:Blood Updated:11/15/13 1651 CPK 140 U/L Acetaminophen level [[id number]] Collected:11/15/13 1602 Specimen Information:Blood Updated:11/15/13 1651 ACETAMINOPHEN 10.0 ug/mL POCT glucose [[id number]] (Abnormal) Collected:11/14/13 1920 GLUCOSE,POC SCREEN 154 (H) mg/dL Updated:11/15/13 1317 Acetaminophen level [[id number]] (Abnormal) Collected:11/15/13 1132 Specimen Information:Blood Updated:11/15/13 1207 ACETAMINOPHEN 5.5 (L) ug/mL Basic metabolic panel [[id number]] (Abnormal) Collected:11/15/13 1132 Specimen Information:Blood Updated:11/15/13 1207 SODIUM 144 (H) mmol/L POTASSIUM 3.9 mmol/L CHLORIDE 114 (H) mmol/L CO2 20 (L) mmol/L ANION GAP AGAP 14 mmol/L GLUCOSE 153 (H) mg/dL BUN 8 mg/dL CREATININE 0.92 mg/dL BUN/CREAT 9 CALCIUM 7.4 (L) mg/dL EGFR >60 mL/min/1.73m2 CPK [[id number]] Collected:11/15/13850 Specimen Information:Blood Updated:11/15/1325 CPK 75 U/L Troponin I [[id number]] (Abnormal) Collected:11/15/13850 Specimen Information:Blood Updated:11/15/1325 TROPONIN I 0.325 (H) ng/mL CK MB [[id number]] Collected:11/15/13850 MMB 3.4 ng/mL Updated:11/15/13 0925 CK-MB Index 4.5 Acetaminophen level [[id number]] (Abnormal) Collected:11/15/13850 Specimen Information:Blood Updated:11/15/13 0925 ACETAMINOPHEN 6.3 (L) ug/mL POCT glucose [[id number]] Collected:11/15/13 0033 GLUCOSE,POC SCREEN 86 mg/dL Updated:11/15/13 0759 Osmolality [[id number]] (Abnormal) Collected:11/15/13 0408 Specimen Information:Blood Updated:11/15/13 0701 OSMOLALITY,SERUM 316 (H) mOsm/kg Lactic acid, plasma [[id number]] (Abnormal) Collected:11/15/13 0532 Specimen Information:Blood Updated:11/15/13 0617 LACTIC ACID 2.5 (H) mmol/L CBC w/auto diff (reflex to manual) [[id number]] (Abnormal) Collected:11/15/138 Specimen Information:Blood Updated:11/15/13 0530 WBC [...] BASOPHILS ABS 0.0 K/uL MORPHOLOGY Troponin I [[id number]] (Abnormal) Collected:11/15/13407 Specimen Information:Blood Updated:11/15/13522 TROPONIN I 0.647 (HH) ng/mL CK MB [[id number]] Collected:11/15/13407 MMB 3.3 ng/mL Updated:11/15/13522 CK-MB Index 5.9 CPK [[id number]] Collected:11/15/13407 Specimen Information:Blood Updated:11/15/13521 CPK 56 U/L Comprehensive metabolic panel [[id number]] (Abnormal) Collected:11/15/13407 Specimen Information:Blood Updated:11/15/13521 SODIUM 148 [...] 61 U/L EGFR >60 mL/min/1.73m2 Acetaminophen level [[id number]] (Abnormal) Collected:11/15/13407 Specimen Information:Blood Updated:11/15/13521 ACETAMINOPHEN 9.9 (L) ug/mL POC arterial CG4+ [[id number]] (Abnormal) Collected:11/14/13 2347 pH, Art 7.141 (LL) Updated:11/14/13 2351 POC PCO2 40 mmHg POC p02 283 (H) mmHg POC LACTATE 3.7 (H) mmol/L POC HCO3 14 (L) mmol/L POC TCO2 15 (L) mEq/L POC BASE DEFICIT 15 (H) mmol/L POC S02 100 (H) % POC FIO2 70 % POC COMMENTS Tidal Volume = 500 Lactic acid, plasma [[id number]] (Abnormal) Collected:11/14/132116 Specimen Information:Blood Updated:11/14/132155 LACTIC ACID 3.4 (H) mmol/L Basic metabolic panel [[id number]] (Abnormal) Collected:11/14/132112 Specimen Information:Blood Updated:11/14/132149 SODIUM 143 mmol/L POTASSIUM 3.0 (L) mmol/L CHLORIDE 114 (H) mmol/L CO2 16 (L) mmol/L ANION GAP AGAP 16 mmol/L GLUCOSE 187 (H) mg/dL BUN 10 mg/dL CREATININE 0.79 mg/dL BUN/CREAT 13 CALCIUM 6.5 (L) mg/dL EGFR >60 mL/min/1.73m2 Phosphorus [[id number]] Collected:11/14/132112 Specimen Information:Blood Updated:11/14/132149 PHOSPHORUS 2.4 mg/dL Magnesium [[id number]] Collected:11/14/132112 Specimen Information:Blood Updated:11/14/132149 MAGNESIUM 1.7 mg/dL Hepatic function panel [[id number]] (Abnormal) Collected:11/14/132112 TOTAL PROTEIN 5.6 (L) g/dL Updated:11/14/132149 Albumin 3.1 (L) g/dL TBIL 0.2 mg/dL BILI, DIRECT <0.1 mg/dL ALK PHOS 76 U/L AST 75 (H) U/L ALT 67 (H) U/L Acetaminophen level [[id number]] (Abnormal) Collected:11/14/132112 Specimen Information:Blood Updated:11/14/132149 ACETAMINOPHEN 44.4 (H) ug/mL Ionized calcium,to [facility] [[id number]] (Abnormal) Collected:11/14/132114 Specimen Information:Blood Updated:11/14/132145 CA++ 0.99 (L) mmol/L pH 7.179 (L) aPTT [[id number]] Collected:11/14/132112 Specimen Information:Blood Updated:11/14/132144 APTT 26 seconds Protime-INR [[id number]] Collected:11/14/132112 Specimen Information:Blood Updated:11/14/132144 INR 1.0 MRSA by PCR [[id number]] Collected:11/14/131929 Specimen Information:Nasopharyngeal / Nasopharyngeal Culture Updated:11/14/132130 SOURCE NARES(NOSE) RESULT NEGATIVE CBC w/auto diff (reflex to manual) [[id number]] (Abnormal) Collected:11/14/132112 Specimen Information:Blood Updated:11/14/132130 WBC 12.2 [...] ABS 0.0 K/uL Rapid drug screen, urine [[id number]] (Abnormal) Collected:11/14/131929 Specimen Information:Urine / Urine, Catheter Updated:11/14/132036 THC NEGATIVE PCP NEGATIVE COCAINE NEGATIVE METHAMPHETAMINES NEGATIVE OPIATES PRESUMPTIVE POSITIVE (A) AMPHETAMINE NEGATIVE BENZODIAZEPINE NEGATIVE TRICYCLIC ANTIDEPRESS PRESUMPTIVE POSITIVE (A) METHADONE NEGATIVE BARBITUATES NEGATIVE Urine microscopic only [[id number]] (Abnormal) Collected:11/14/131929 WBC 1-5 /hpf Updated:11/14/132035 RBC 0-2 /hpf EPITHELIAL NONE SEEN /lpf BACTERIA TRACE (A) Urinalysis (reflex to micro) [[id number]] (Abnormal) Collected:11/14/131929 Specimen Information:Urine / Urine, Catheter Updated:11/14/132035 COLOR UA OTHER CLARITY CLEAR Specific Holliday, UA 1.004 LEUKOCYTE ESTERASE TRACE (A) NITRITE [...] to patient,doing exam and revising records from [facility]. FRAN BARNES MD 11/17/2013 onversion Transactio n, Provider Unknown - 11/17/2013 4:27 AM PST Nurse Progress Note by Jazzy Patel RN at 11/17/137 Author: Jazzy Patel RN Service: (none) Author Type: Registered Nurse Filed: 11/17/13 0429 Date of Service: 11/17/13426 Status: Signed Confectionery Maker: Jazzy Patel RN (Registered Nurse) Pt currently sleeping. 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 Unable to score CIWA a [...] Notes by Fran Barnes MD at 11/16/13 9847 Author: Fran Barnes MD Service: Hospitalist Author Type: Physician Filed: 11/17/13 1746 Date of Service: 11/16/13 6750 Status: Signed Confectionery Maker: Fran Barnes MD (Physician) Related Notes: Original Note by Fran Barnes MD (Physician) filed at 11/16/13 1460 [facility]: Hospitalist Progress Note Ronald Castañeda 68 y.o. [phone] 323/323-1 female MIQUEL Suarez [facility] Day: LOS: 2 days Patient [...] d was intubated and sent to [facility] for further workup and treatment. The patient [...] as tricyclic positive. She was put on CIMN protocol for alcohol withdrawal. Today when I [...] atient told that she lives alone in [place]. She goes to [facility]. She [...] Procedure Component Value Units Date/Time Urine culture [[id number]] Collected:11/16/13 0951 Specimen Information:Urine / Urine, Clean Catch Updated:11/16/13 1144 Potassium [[id number]] Collected:11/16/13 1112 Specimen Information:Blood Updated:11/16/13 1133 POTASSIUM 3.6 mmol/L Sputum culture [[id number]] Collected:11/14/13 2055 Specimen Information:Sputum / Tracheal Aspirate Updated:11/16/13 1018 Specimen Description TRACHEAL ASPIRATE Specimen Description Result: Testing performed at [facility];[address] [place] [address];[place] [address] GRAM STAIN GREATER THAN 10 WBCS/LPF GRAM STAIN LESS THAN 10 SEC/LPF GRAM STAIN 2+ GRAM POSITIVE COCCI GRAM STAIN 1+ GRAM POSITIVE RODS GRAM STAIN Result: Testing performed at [facility], [address] [place] [address] CULTURE 2+ NORMAL UPPER RESPIRATORY CURTIS CULTURE Result: Testing performed at [facility], [address] [place] [address] REPORT STATUS 11/16/2013 FINAL Acetaminophen level [[id number]] (Abnormal) Collected:11/16/13 0755 Specimen Information:Blood Updated:11/16/13 0828 ACETAMINOPHEN 3.7 (L) ug/mL Magnesium [[id number]] Collected:11/16/13406 Specimen Information:Blood Updated:11/16/13 0800 Phosphorus [[id number]] Collected:11/16/13406 Specimen Information:Blood Updated:11/16/13 0800 CBC w/auto diff (reflex to manual) [[id number]] (Abnormal) Collected:11/16/13406 Specimen Information:Blood Updated:11/16/13 0503 WBC [...] BASOPHILS ABS 0.0 K/uL Basic metabolic panel [[id number]] (Abnormal) Collected:11/16/13406 Specimen Information:Blood Updated:11/16/13 044 SODIUM 143 mmol/L POTASSIUM 3.1 (L) mmol/L CHLORIDE 109 mmol/L CO2 27 mmol/L ANION GAP AGAP 10 mmol/L GLUCOSE 78 mg/dL BUN 7 (L) mg/dL CREATININE 0.77 mg/dL BUN/CREAT 9 CALCIUM 7.8 (L) mg/dL EGFR >60 mL/min/1.73m2 Acetaminophen level [[id number]] (Abnormal) Collected:11/16/13406 Specimen Information:Blood Updated:11/16/13 0440 ACETAMINOPHEN 4.5 (L) ug/mL Acetaminophen level [[id number]] (Abnormal) Collected:11/16/13 0036 Specimen Information:Blood Updated:11/16/13 0058 ACETAMINOPHEN 5.2 (L) ug/mL Troponin I [[id number]] (Abnormal) Collected:11/15/13 1602 Specimen Information:Blood Updated:11/15/13 1651 TROPONIN I 0.208 (H) ng/mL CK MB [[id number]] Collected:11/15/13 1602 MMB 3.4 ng/mL Updated:11/15/13 165 CK-MB Index 2.4 CPK [[id number]] Collected:11/15/13 160 Specimen Information:Blood Updated:11/15/13 1651 CPK 140 U/L Acetaminophen level [[id number]] Collected:11/15/13 160 Specimen Information:Blood Updated:11/15/13 1651 ACETAMINOPHEN 10.0 ug/mL POCT glucose [[id number]] (Abnormal) Collected:11/14/13 1920 GLUCOSE,POC SCREEN 154 (H) mg/dL Updated:11/15/13 1317 Acetaminophen level [[id number]] (Abnormal) Collected:11/15/13 1132 Specimen Information:Blood Updated:11/15/13 1207 ACETAMINOPHEN 5.5 (L) ug/mL Basic metabolic panel [[id number]] (Abnormal) Collected:11/15/13 1132 Specimen Information:Blood Updated:11/15/13 1207 SODIUM 144 (H) mmol/L POTASSIUM 3.9 mmol/L CHLORIDE 114 (H) mmol/L CO2 20 (L) mmol/L ANION GAP AGAP 14 mmol/L GLUCOSE 153 (H) mg/dL BUN 8 mg/dL CREATININE 0.92 mg/dL BUN/CREAT 9 CALCIUM 7.4 (L) mg/dL EGFR >60 mL/min/1.73m2 CPK [[id number]] Collected:11/15/1351 Specimen Information:Blood Updated:11/15/13 0925 CPK 75 U/L Troponin I [[id number]] (Abnormal) Collected:11/15/13850 Specimen Information:Blood Updated:11/15/13 0925 TROPONIN I 0.325 (H) ng/mL CK MB [[id number]] Collected:11/15/13850 MMB 3.4 ng/mL Updated:11/15/13 0925 CK-MB Index 4.5 Acetaminophen level [[id number]] (Abnormal) Collected:11/15/13 0851 Specimen Information:Blood Updated:11/15/13 0925 ACETAMINOPHEN 6.3 (L) ug/mL POCT glucose [[id number]] Collected:11/15/13 0033 GLUCOSE,POC SCREEN 86 mg/dL Updated:11/15/13 0759 Osmolality [[id number]] (Abnormal) Collected:11/15/13407 Specimen Information:Blood Updated:11/15/13 0701 OSMOLALITY,SERUM 316 (H) mOsm/kg Lactic acid, plasma [[id number]] (Abnormal) Collected:11/15/13 0532 Specimen Information:Blood Updated:11/15/13 0617 LACTIC ACID 2.5 (H) mmol/L CBC w/auto diff (reflex to manual) [[id number]] (Abnormal) Collected:11/15/13407 Specimen Information:Blood Updated:11/15/13529 WBC 5.5 [...] BASOPHILS ABS 0.0 K/uL MORPHOLOGY Troponin I [[id number]] (Abnormal) Collected:11/15/13407 Specimen Information:Blood Updated:11/15/13522 TROPONIN I 0.647 (HH) ng/mL CK MB [[id number]] Collected:11/15/13407 MMB 3.3 ng/mL Updated:11/15/13522 CK-MB Index 5.9 CPK [[id number]] Collected:11/15/13407 Specimen Information:Blood Updated:11/15/13521 CPK 56 U/L Comprehensive metabolic panel [[id number]] (Abnormal) Collected:11/15/13407 Specimen Information:Blood Updated:11/15/13521 SODIUM 148 [...] 61 U/L EGFR >60 mL/min/1.73m2 Acetaminophen level [[id number]] (Abnormal) Collected:11/15/13 0408 Specimen Information:Blood Updated:11/15/13 0522 ACETAMINOPHEN 9.9 (L) ug/mL POC arterial CG4+ [[id number]] (Abnormal) Collected:11/14/132346 pH, Art 7.141 (LL) Updated:11/14/13 2351 POC PCO2 40 mmHg POC p02 283 (H) mmHg POC LACTATE 3.7 (H) mmol/L POC HCO3 14 (L) mmol/L POC TCO2 15 (L) mEq/L POC BASE DEFICIT 15 (H) mmol/L POC S02 100 (H) % POC FIO2 70 % POC COMMENTS Tidal Volume = 500 Lactic acid, plasma [[id number]] (Abnormal) Collected:11/14/132116 Specimen Information:Blood Updated:11/14/132155 LACTIC ACID 3.4 (H) mmol/L Basic metabolic panel [[id number]] (Abnormal) Collected:11/14/132112 Specimen Information:Blood Updated:11/14/132149 SODIUM 143 mmol/L POTASSIUM 3.0 (L) mmol/L CHLORIDE 114 (H) mmol/L CO2 16 (L) mmol/L ANION GAP AGAP 16 mmol/L GLUCOSE 187 (H) mg/dL BUN 10 mg/dL CREATININE 0.79 mg/dL BUN/CREAT 13 CALCIUM 6.5 (L) mg/dL EGFR >60 mL/min/1.73m2 Phosphorus [[id number]] Collected:11/14/132112 Specimen Information:Blood Updated:11/14/132149 PHOSPHORUS 2.4 mg/dL Magnesium [[id number]] Collected:11/14/132112 Specimen Information:Blood Updated:11/14/132149 MAGNESIUM 1.7 mg/dL Hepatic function panel [[id number]] (Abnormal) Collected:11/14/132112 TOTAL PROTEIN 5.6 (L) g/dL Updated:11/14/132149 Albumin 3.1 (L) g/dL TBIL 0.2 mg/dL BILI, DIRECT <0.1 mg/dL ALK PHOS 76 U/L AST 75 (H) U/L ALT 67 (H) U/L Acetaminophen level [[id number]] (Abnormal) Collected:11/14/132112 Specimen Information:Blood Updated:11/14/132149 ACETAMINOPHEN 44.4 (H) ug/mL Ionized calcium,to [facility] [[id number]] (Abnormal) Collected:11/14/132114 Specimen Information:Blood Updated:11/14/132145 CA++ 0.99 (L) mmol/L pH 7.179 (L) aPTT [[id number]] Collected:11/14/132112 Specimen Information:Blood Updated:11/14/132144 APTT 26 seconds Protime-INR [[id number]] Collected:11/14/132112 Specimen Information:Blood Updated:11/14/132144 INR 1.0 MRSA by PCR [[id number]] Collected:11/14/131929 Specimen Information:Nasopharyngeal / Nasopharyngeal Culture Updated:11/14/132130 SOURCE NARES(NOSE) RESULT NEGATIVE CBC w/auto diff (reflex to manual) [[id number]] (Abnormal) Collected:11/14/132112 Specimen Information:Blood Updated:11/14/132130 WBC 12.2 [...] ABS 0.0 K/uL Rapid drug screen, urine [[id number]] (Abnormal) Collected:11/14/131929 Specimen Information:Urine / Urine, Catheter Updated:11/14/132036 THC NEGATIVE PCP NEGATIVE COCAINE NEGATIVE METHAMPHETAMINES NEGATIVE OPIATES PRESUMPTIVE POSITIVE (A) AMPHETAMINE NEGATIVE BENZODIAZEPINE NEGATIVE TRICYCLIC ANTIDEPRESS PRESUMPTIVE POSITIVE (A) METHADONE NEGATIVE BARBITUATES NEGATIVE Urine microscopic only [[id number]] (Abnormal) Collected:11/14/131929 WBC 1-5 /hpf Updated:11/14/132035 RBC 0-2 /hpf EPITHELIAL NONE SEEN /lpf BACTERIA TRACE (A) Urinalysis (reflex to micro) [[id number]] (Abnormal) Collected:11/14/131929 Specimen Information:Urine / Urine, Catheter Updated:11/14/132035 COLOR UA OTHER CLARITY CLEAR Specific Holliday, UA 1.004 LEUKOCYTE ESTERASE TRACE (A) NITRITE [...] 1423 Date of Service: 11/16/131421 Status: Signed Confectionery Maker: Kassidy Perez RN (Registered Nurse) Pt beginning [...] Date of Service: 11/16/13 1140 Status: Signed Confectionery Maker: Jana Tayolr Pt given to Kassidy MORAN on 3OP. Pt transferred via wheel chair. onver hiren Transaction, Provider Unknown - 11/16/2013 1:17 AM PST Nurse Progress Note by Sheryl Tomas RN at 11/16/13116 Author: Sheryl Tomas RN Service: (none) Author Type: Registered Nurse Filed: 11/16/13116 Date of Service: 11/16/13116 Status: Signed Confectionery Maker: Sheryl Tomas RN (Registered Nurse) Stopped Acetylcysteine drip per order. Sheryl Tomas RN iotr hesham Jana Osbornanne - 11/15/2013 4:28 PM PST Progress Notes by Jana Norris DO at 11/15/131627 Author: Jana Norris DO Service: (none) Author Type: Bread Panner Filed: 11/15/131628 Date of Service: 11/15/131627 Status: Signed Confectionery Maker: Jana Norris DO (Bread Panner) Pt was extubated this am and has [...] 11/15/131408 Date of Service: 11/15/131407 Status: Signed Confectionery Maker: Kourtney Aldana RN (Registered Nurse) Discussed psych consult with Dr. Norris. Received verbal order for psych consult. Notifi wilbert Flores RN, she will arrange for psych consult. When pt is stable for discharge, will need to call [facility] : [phone] to evalulate before disch arging pt. KOURTNEY ALDANA 11/15/2013 2:09 PM onver hiren Transaction, Provider Unknown - 11/15/2013 9:32 AM PST Progress Notes by Nick Jeffries RN at 11/15/13931 Author: Nick Jeffries RN Service: Wound/Ostomy Care Author Type: Registered Nurse Filed: 11/15/1334 Date of Service: 11/15/13931 Status: Signed Confectionery Maker: Nick Jeffries RN (Registered Nurse) Pt seen [...] 0557 Date of Service: 11/15/1357 Status: Signed Confectionery Maker: Mat Perez RPH (Pharmacist) Clinical Pharmacy Note: Renal Monitoring Ronald Koonel 68 y.o. female Ht Readings from Last 1 Encounters: No data found for Ht Wt Readings from Last 1 Encounters: 11/15/13 69.1 kg (152 lb 5.4 oz) CREATININE Date Value Range Status 11/15/2013 0.69 0.50 - 1.00 mg/dL Final Testing performed at [facility];[address] [place] [address];[place] [address] Creatinine clearance cannot be calculated - Unknown [...] 11/15/131951 Date of Service: 11/14/131856 Status: Signed Confectionery Maker: Roseline Sanon RN (Registered Nurse) Pt arrived [facility] from [facility]. No report called from [place] a nd [...] DEWEY | | | | | | [id number] | | | | | | | [...] | EXTERNAL LAB | | performed at [facility];[address] [place] [address];[place] [address] 027 NAP1 BI | | | 027 NAP1 BI PRESUMPTIVE NEGATIVE | | | Detection of 027 NAP1 BI strains of C. difficile is presumptive and | | | for epidemiological purposes and not intended to guide or monitor | | | treatment for C. difficile infections. Testing performed at [facility];[address] | | [facility];[place] [address] | | + + + + +---------+ [...] | | | | | [place] [address] | | | | + + + + + + | RED CELL | 3.85Comment: Testing | 3.70 - 5.10 | EXTERNAL | | | COUNT | performed at [facility], [address] | M/uL | LAB | | | | [address], | | | | | | [place] [address] | | | | + + + + + + | Hgb | 10.7 (L)Comment: Testing | 11.3 - 15.5 | EXTERNAL | | | | performed at [facility], [address] | g/dL | LAB | | | | [address], | | | | | | [place] [address] | | | | + + + + + + | Hematocrit, | 32.8 (L)Comment: Testing | 34.0 - 46.0 % | EXTERNAL | | | POC | performed at [facility], [address] | | LAB | | | | [address], | | | | | | [place] [address] | | | | + + + + + + | MCV | 85.2Comment: Testing | 80.0 - 100.0 fl | EXTERNAL | | | | performed at [facility], [address] | | LAB | | | | [address], | | | | | | [place] [address] | | | | + + + + + + | MCH | 27.8Comment: Testing | 27.0 - 34.0 pg | EXTERNAL | | | | performed at [facility], [address] | | LAB | | | | [address], | | | | | | [place] [address] | | | | + + + + + + | MCHC | 32.6Comment: Testing | 32.0 - 35.5 | EXTERNAL | | | | performed at [facility], [address] | g/dL | LAB | | | | [address], | | | | | | [place] [address] | | | | + + + + + + | RDW-CV | 38.1Comment: Testing | 37 - 53 fl | EXTERNAL | | | | performed at [facility], [address] | | LAB | | | | [address], | | | | | | [place] [address] | | | | + + + + + + | Platelet | 222Comment: Testing | 150 - 400 K/uL | EXTERNAL | | | Count | performed at [facility], [address] | | LAB | | | Plasma | [address], | | | | | | [place] [address] | | | | + + + + + + | MPV | 7.8Comment: Testing | fl | EXTERNAL | | | | performed at [facility], [address] | | LAB | | | | [address], | | | | | | [place] [address] | | | | + + + + + + | Differentia | AUTOMATEDComment: | | EXTERNAL | | | l Type | Testing performed at | | LAB | | | | [facility], [address] | | | | | | [address], [place], [place] | | | | | | [address] | | | | + + + [...] EXTERNAL | | | | performed at [facility], [address] | | LAB | | | | [address], | | | | | | [place] [address] | | | | + + + [...] EXTERNAL | | | | performed at [facility], [address] | | LAB | | | | [address], | | | | | | [place] [address] | | | | + + + [...] | | | | | [place] [address] | | | | + + + + + + | K | 3.9Comment: Testing | 3.5 - 4.9 | EXTERNAL | | | | performed at [facility], [address] | mmol/L | LAB | | | | [address], | | | | | | [place] [address] | | | | + + + + + + | Cl | 101Comment: Testing | 99 - 109 mmol/L | EXTERNAL | | | | performed at [facility], [address] | | LAB | | | | [address], | | | | | | [place] [address] | | | | + + + + + + | CO2 | 24Comment: Testing | 23 - 32 mmol/L | EXTERNAL | | | | performed at [facility], [address] | | LAB | | | | [address], | | | | | | [place] [address] | | | | + + + + + + | Anion Gap | 12Comment: Testing | 5 - 20 mmol/L | EXTERNAL | | | | performed at [facility], [address] | | LAB | | | | [address], | | | | | | [place] [address] | | | | + + + + + + | Glucose, | 108 (H)Comment: Testing | 65 - 99 mg/dL | EXTERNAL | | | Fasting | performed at [facility], [address] | | LAB | | | | [address], | | | | | | [place] [address] | | | | + + + + + + | BUN | 12Comment: Testing | 8 - 25 mg/dL | EXTERNAL | | | | performed at [facility], [address] | | LAB | | | | [address], | | | | | | [place] [address] | | | | + + + + + + | Creatinine | 0.80Comment: Testing | 0.50 - 1.00 | EXTERNAL | | | | performed at [facility], [address] | mg/dL | LAB | | | | [address], | | | | | | [place] [address] | | | | + + + + + + | BUN/Creatin | 15Comment: Testing | | EXTERNAL | | | ine Ratio | performed at [facility], [address] | | LAB | | | | [address], | | | | | | [place] [address] | | | | + + + + + + | Calcium | 9.2Comment: Testing | 8.5 - 10.2 | EXTERNAL | | | | performed at [facility], [address] | mg/dL | LAB | | | | [address], | | | | | | [place] [address] | | | | + + + [...] | | | | | [place] [address] | | | | + + + [...] | EXTERNAL LAB | | performed at [facility];[address] [facility];[place] [address] | | + + + + +---------+ [...] | | | | | [place] [address] | | | | + + + + + + | RED CELL | 3.77Comment: Testing | 3.70 - 5.10 | EXTERNAL | | | COUNT | performed at [facility], [address] | M/uL | LAB | | | | [address], | | | | | | [place] [address] | | | | + + + + + + | Hgb | 10.8 (L)Comment: Testing | 11.3 - 15.5 | EXTERNAL | | | | performed at [facility], [address] | g/dL | LAB | | | | [address], | | | | | | [place] [address] | | | | + + + + + + | Hematocrit, | 31.9 (L)Comment: Testing | 34.0 - 46.0 % | EXTERNAL | | | POC | performed at [facility], [address] | | LAB | | | | [address], | | | | | | [place] [address] | | | | + + + + + + | MCV | 84.8Comment: Testing | 80.0 - 100.0 fl | EXTERNAL | | | | performed at [facility], [address] | | LAB | | | | [address], | | | | | | [place] [address] | | | | + + + + + + | MCH | 28.8Comment: Testing | 27.0 - 34.0 pg | EXTERNAL | | | | performed at [facility], [address] | | LAB | | | | [address], | | | | | | [place] [address] | | | | + + + + + + | MCHC | 33.9Comment: Testing | 32.0 - 35.5 | EXTERNAL | | | | performed at [facility], [address] | g/dL | LAB | | | | [address], | | | | | | [place] [address] | | | | + + + + + + | RDW-CV | 37.6Comment: Testing | 37 - 53 fl | EXTERNAL | | | | performed at [facility], [address] | | LAB | | | | [address], | | | | | | [place] [address] | | | | + + + + + + | Platelet | 183Comment: Testing | 150 - 400 K/uL | EXTERNAL | | | Count | performed at [facility], [address] | | LAB | | | Plasma | [address], | | | | | | [place] [address] | | | | + + + + + + | MPV | 7.9Comment: Testing | fl | EXTERNAL | | | | performed at [facility], [address] | | LAB | | | | [address], | | | | | | [place] [address] | | | | + + + + + + | Differentia | AUTOMATEDComment: | | EXTERNAL | | | l Type | Testing performed at | | LAB | | | | [facility], [address] | | | | | | [place] | | | | | | [address] | | | | + + + [...] EXTERNAL | | | | performed at [facility], [address] | uIU/mL | LAB | | | | [address], | | | | | | [place] [address] | | | | + + + [...] EXTERNAL | | | | performed at [facility], [address] | | LAB | | | | [facility], | | | | | | [place] [address] | | | | + + + [...] EXTERNAL | | | | performed at [facility], [address] | | LAB | | | | [address], | | | | | | [place] [address] | | | | + + + [...] | | | | | [place] [address] | | | | + + + + + + | K | 4.2Comment: Testing | 3.5 - 4.9 | EXTERNAL | | | | performed at [facility], [address] | mmol/L | LAB | | | | [address], | | | | | | [place] [address] | | | | + + + + + + | Cl | 104Comment: Testing | 99 - 109 mmol/L | EXTERNAL | | | | performed at [facility], [address] | | LAB | | | | [address], | | | | | | [place] [address] | | | | + + + + + + | CO2 | 24Comment: Testing | 23 - 32 mmol/L | EXTERNAL | | | | performed at [facility], [address] | | LAB | | | | [address], | | | | | | [place] [address] | | | | + + + + + + | Anion Gap | 11Comment: Testing | 5 - 20 mmol/L | EXTERNAL | | | | performed at [facility], [address] | | LAB | | | | [address], | | | | | | [place] [address] | | | | + + + + + + | Glucose, | 110 (H)Comment: Testing | 65 - 99 mg/dL | EXTERNAL | | | Fasting | performed at [facility], [address] | | LAB | | | | [address], | | | | | | [place] [address] | | | | + + + + + + | BUN | 11Comment: Testing | 8 - 25 mg/dL | EXTERNAL | | | | performed at [facility], [address] | | LAB | | | | [address], | | | | | | [place] [address] | | | | + + + + + + | Creatinine | 0.73Comment: Testing | 0.50 - 1.00 | EXTERNAL | | | | performed at [facility], [address] | mg/dL | LAB | | | | [address], | | | | | | [place] [address] | | | | + + + + + + | BUN/Creatin | 15Comment: Testing | | EXTERNAL | | | ine Ratio | performed at [facility], [address] | | LAB | | | | [address], | | | | | | [place] [address] | | | | + + + + + + | Calcium | 9.0Comment: Testing | 8.5 - 10.2 | EXTERNAL | | | | performed at [facility], [address] | mg/dL | LAB | | | | [address], | | | | | | [place] [address] | | | | + + + [...] | | | | | | at [facility], [address] | | | | | | [address], | | | | | | [place] [address] | | | | + + + [...] EXTERNAL LAB | | Testing performed at [facility];[address] | | | [facility];[place] [address] GRAM STAIN | | | GREATER THAN 10 WBCS/LPF | | | LESS THAN 10 SEC/LPF | | | NO ORGANISMS SEEN | | | Testing performed at [facility], [facility], | | | [place] [address] CULTURE | | | 3+ ZITA GLABRATAAbnormal | | | 2+ ZITA DUBLINIENSISAbnormal | | | 2+ KLEBSIELLA OXYTOCAAbnormal | | | 1+ NORMAL UPPER RESPIRATORY | | | CURTIS Testing | | | performed at [facility], [facility], [place] [address] | | | REPORT STATUS 11/23/2013 FINAL [...] EXTERNAL LAB | | Testing performed at [facility];[address] | | | [facility];[place] [address] SPECIAL REQUESTS | | | PICC LINE | | | Testing performed at [facility];[address] [place] [address] CULTURE | | | NO GROWTH 6 DAYS | | | Testing performed at [facility], [address] | | | [place] [address] REPORT STATUS | | | 11/23/2013 FINAL [...] EXTERNAL LAB | | Testing performed at [facility];[address] | | | [facility] [address] SPECIAL REQUESTS | | | REPEAT TEST USING ALTERNATE ASSAYED CONTROL MATERIAL | | | Testing performed at [facility];[address] | | | [address];[place] [address] CULTURE | | | NO GROWTH 6 DAYS | | | Testing performed at [facility], [address] [place], | | | [place] [address] REPORT STATUS 11/23/2013 | | | FINAL [...] | Testing performed at | | | [facility];[address] [facility];[place] [address] CULTURE | | | NO GROWTH | | | Testing performed at [facility], [address] [facility], | | | [place] [address] REPORT STATUS | | | 11/18/2013 FINAL [...] | | | | | [place] [address] | | | | + + + + + + | TIBC | 155 (L)Comment: Testing | 260 - 490 ug/dL | EXTERNAL | | | | performed at [facility], [address] | | LAB | | | | [address], | | | | | | [place] [address] | | | | + + + + + + | Iron | 20Comment: Testing | 15 - 50 % | EXTERNAL | | | Saturation | performed at [facility], [address] | | LAB | | | | [address], | | | | | | [place] [address] | | | | + + + [...] EXTERNAL | | | | performed at [facility], [address] | | LAB | | | | [address], | | | | | | [place] [address] | | | | + + + + + + | RED CELL | 3.51 (L)Comment: Testing | 3.70 - 5.10 | EXTERNAL | | | COUNT | performed at [facility], [address] | M/uL | LAB | | | | [address], | | | | | | [place] [address] | | | | + + + + + + | Hgb | 9.6 (L)Comment: Testing | 11.3 - 15.5 | EXTERNAL | | | | performed at [facility], [address] | g/dL | LAB | | | | [address], | | | | | | [place] [address] | | | | + + + + + + | Hematocrit, | 29.5 (L)Comment: Testing | 34.0 - 46.0 % | EXTERNAL | | | POC | performed at [facility], [address] | | LAB | | | | [address], | | | | | | [place] [address] | | | | + + + + + + | MCV | 84.3Comment: Testing | 80.0 - 100.0 fl | EXTERNAL | | | | performed at [facility], [address] | | LAB | | | | [address], | | | | | | [place] [address] | | | | + + + + + + | MCH | 27.5Comment: Testing | 27.0 - 34.0 pg | EXTERNAL | | | | performed at [facility], [address] | | LAB | | | | [address], | | | | | | [place] [address] | | | | + + + + + + | MCHC | 32.6Comment: Testing | 32.0 - 35.5 | EXTERNAL | | | | performed at [facility], [address] | g/dL | LAB | | | | [address], | | | | | | [place] [address] | | | | + + + + + + | RDW-CV | 36.3 (L)Comment: Testing | 37 - 53 fl | EXTERNAL | | | | performed at [facility], [address] | | LAB | | | | [address], | | | | | | [place] [address] | | | | + + + + + + | Platelet | 151Comment: Testing | 150 - 400 K/uL | EXTERNAL | | | Count | performed at [facility], [address] | | LAB | | | Plasma | [address], | | | | | | [place] [address] | | | | + + + + + + | MPV | 7.9Comment: Testing | fl | EXTERNAL | | | | performed at [facility], [address] | | LAB | | | | [address], | | | | | | [place] [address] | | | | + + + + + + | Differentia | AUTOMATEDComment: | | EXTERNAL | | | l Type | Testing performed at | | LAB | | | | [facility], [address] | | | | | | [place] | | | | | | [address] | | | | + + + [...] EXTERNAL | | | | performed at [facility], [address] | | LAB | | | | [address], | | | | | | [place] [address] | | | | + + + [...] | | | External | performed at [facility], [address] | | LAB | | | | [address], | | | | | | [place] [address] | | | | + + + [...] | | | | | [place] [address] | | | | + + + [...] | | | | | [place] [address] | | | | + + + + + + | K | 3.8Comment: Testing | 3.5 - 4.9 | EXTERNAL | | | | performed at [facility], [address] | mmol/L | LAB | | | | [address], | | | | | | [place] [address] | | | | + + + [...] | | | | | [place] [address] | | | | + + + + + + | Glucose, | 131 (H)Comment: Testing | 65 - 99 mg/dL | EXTERNAL | | | Fasting | performed at [facility], [address] | | LAB | | | | [address], | | | | | | [place] [address] | | | | + + + + + + | BUN | 7 (L)Comment: Testing | 8 - 25 mg/dL | EXTERNAL | | | | performed at [facility], [address] | | LAB | | | | [address], | | | | | | [place] [address] | | | | + + + + + + | Creatinine | 0.61Comment: Testing | 0.50 - 1.00 | EXTERNAL | | | | performed at [facility], [address] | mg/dL | LAB | | | | [address], | | | | | | [place] [address] | | | | + + + + + + | BUN/Creatin | 11Comment: Testing | | EXTERNAL | | | ine Ratio | performed at [facility], [address] | | LAB | | | | [address], | | | | | | [place] [address] | | | | + + + + + + | Calcium | 8.5Comment: Testing | 8.5 - 10.2 | EXTERNAL | | | | performed at [facility], [address] | mg/dL | LAB | | | | [address], | | | | | | [place] [address] | | | | + + + + + + | Protein, | 5.2 (L)Comment: Testing | 6.3 - 8.2 g/dL | EXTERNAL | | | Total | performed at [facility], [address] | | LAB | | | | [address], | | | | | | [place] [address] | | | | + + + + + + | Albumin | 3.1 (L)Comment: Testing | 3.3 - 4.8 g/dL | EXTERNAL | | | | performed at [facility], [address] | | LAB | | | | [address], | | | | | | [place] [address] | | | | + + + + + + | Globulin | 2.1Comment: Testing | 1.3 - 4.9 g/dL | EXTERNAL | | | | performed at [facility], [address] | | LAB | | | | [address], | | | | | | [place] [address] | | | | + + + + + + | A/G Ratio | 1.5Comment: Testing | 1.0 - 2.4 | EXTERNAL | | | | performed at [facility], [address] | | LAB | | | | [facility], | | | | | | [place] [address] | | | | + + + + + + | Bilirubin | 0.6Comment: Testing | 0.1 - 1.5 mg/dL | EXTERNAL | | | Total | performed at [facility], [address] | | LAB | | | | [address], | | | | | | [place] [address] | | | | + + + + + + | ALP, | 48Comment: Testing | 35 - 115 U/L | EXTERNAL | | | External | performed at [facility], [address] | | LAB | | | | [address], | | | | | | [place] [address] | | | | + + + + + + | AST | 19Comment: Testing | 10 - 45 U/L | EXTERNAL | | | | performed at [facility], [address] | | LAB | | | | [address], | | | | | | [place] [address] | | | | + + + + + + | ALT | 21Comment: Testing | 10 - 65 U/L | EXTERNAL | | | | performed at [facility], [address] | | LAB | | | | [address], | | | | | | [place] [address] | | | | + + + [...] | | | | | | at [facility], [address] | | | | | | [address], | | | | | | [place] [address] | | | | + + + [...] EXTERNAL | | | | performed at [facility];[address] | mmol/L | LAB | | | | [address];[place], [place] | | | | | | [address] | | | | + + + [...] | Testing performed at | | | [facility];[address] [facility];[place] [address] CULTURE | | | NO GROWTH | | | Testing performed at [facility], [address] [facility], | | | [place] [address] REPORT STATUS | | | 11/17/2013 FINAL [...] | | EN LEVEL | performed at [facility];[address] | ug/mL | LAB | | | | [address];[place] | | | | | | [address] | | | | + + + [...] EXTERNAL | | | | performed at [facility], [address] | | LAB | | | | [address], | | | | | | [place] [address] | | | | + + + + + + | RED CELL | 3.54 (L)Comment: Testing | 3.70 - 5.10 | EXTERNAL | | | COUNT | performed at [facility], [address] | M/uL | LAB | | | | [address], | | | | | | [place] [address] | | | | + + + + + + | Hgb | 10.1 (L)Comment: Testing | 11.3 - 15.5 | EXTERNAL | | | | performed at [facility], [address] | g/dL | LAB | | | | [address], | | | | | | [place] [address] | | | | + + + + + + | Hematocrit, | 29.5 (L)Comment: Testing | 34.0 - 46.0 % | EXTERNAL | | | POC | performed at [facility], [address] | | LAB | | | | [address], | | | | | | [place] [address] | | | | + + + + + + | MCV | 83.4Comment: Testing | 80.0 - 100.0 fl | EXTERNAL | | | | performed at [facility], [address] | | LAB | | | | [address], | | | | | | [place] [address] | | | | + + + + + + | MCH | 28.7Comment: Testing | 27.0 - 34.0 pg | EXTERNAL | | | | performed at [facility], [address] | | LAB | | | [address], | | | | | | [place] [address] | | | | + + + + + + | MCHC | 34.3Comment: Testing | 32.0 - 35.5 | EXTERNAL | | | | performed at [facility], [address] | g/dL | LAB | | | | [address], | | | | | | [place] [address] | | | | + + + + + + | RDW-CV | 37.6Comment: Testing | 37 - 53 fl | EXTERNAL | | | | performed at [facility], [address] | | LAB | | | | [address], | | | | | | [place] [address] | | | | + + + + + + | Platelet | 176Comment: Testing | 150 - 400 K/uL | EXTERNAL | | | Count | performed at [facility], [address] | | LAB | | | Plasma | [address], | | | | | | [place] [address] | | | | + + + + + + | MPV | 7.8Comment: Testing | fl | EXTERNAL | | | | performed at [facility], [address] | | LAB | | | | [address], | | | | | | [place] [address] | | | | + + + + + + | Differentia | AUTOMATEDComment: | | EXTERNAL | | | l Type | Testing performed at | | LAB | | | | [facility], [address] | | | | | | [place] | | | | | | [address] | | | | + + + [...] EXTERNAL | | | | performed at [facility];[address] | | LAB | | | | [facility];[place], [place] | | | | | | [address] | | | | + + + [...] EXTERNAL | | | | performed at [facility] | | LAB | | | | [address];[place] | | | | | | [address] | | | | + + + [...] | | EN LEVEL | performed at [facility];[address] | ug/mL | LAB | | | | [address];[place], [place] | | | | | | [address] | | | | + + + [...] EXTERNAL | | | | performed at [facility];[address] | mmol/L | LAB | | | | [address];[place] | | | | | | [address] | | | | + + + + + + | K | 3.1 (L)Comment: Testing | 3.5 - 4.9 | EXTERNAL | | | | performed at [facility];[address] | mmol/L | LAB | | | | [address];[place] | | | | | | [address] | | | | + + + + + + | Cl | 109Comment: Testing | 99 - 109 mmol/L | EXTERNAL | | | | performed at [facility];[address] | | LAB | | | | [address];[place] | | | | | | [address] | | | | + + + + + + | CO2 | 27Comment: Testing | 23 - 32 mmol/L | EXTERNAL | | | | performed at [facility];[address] | | LAB | | | | [address];[place] | | | | | | [address] | | | | + + + + + + | Anion Gap | 10Comment: Testing | 5 - 20 mmol/L | EXTERNAL | | | | performed at [facility];[address] | | LAB | | | | [address];[place] | | | | | | [address] | | | | + + + + + + | Glucose, | 78Comment: Testing | 65 - 99 mg/dL | EXTERNAL | | | Fasting | performed at [facility];[address] | | LAB | | | | [address];[place] | | | | | | [address] | | | | + + + + + + | BUN | 7 (L)Comment: Testing | 8 - 25 mg/dL | EXTERNAL | | | | performed at [facility];[address] | | LAB | | | | [address];[place] | | | | | | [address] | | | | + + + + + + | Creatinine | 0.77Comment: Testing | 0.50 - 1.00 | EXTERNAL | | | | performed at [facility];[address] | mg/dL | LAB | | | | [address];[place] | | | | | | [address] | | | | + + + + + + | BUN/Creatin | 9Comment: Testing | | EXTERNAL | | | ine Ratio | performed at [facility];[address] | | LAB | | | | [address];[place] | | | | | | [address] | | | | + + + + + + | Calcium | 7.8 (L)Comment: Testing | 8.5 - 10.2 | EXTERNAL | | | | performed at [facility];[address] | mg/dL | LAB | | | | [address];[place], [place] | | | | | | [address] | | | | + + + [...] | | | | | | at [facility];[address];[place] [address] | | | | + + + [...] | | EN LEVEL | performed at [facility];[address] | ug/mL | LAB | | | | [address];[place] | | | | | | [address] | | | | + + + [...] EXTERNAL | | | | performed at [facility];[address] | | LAB | | | | [address] [facility];[place], [place] | | | | | | [address] | | | | + + + [...] | | | | | | ACUTE VT Testing | | | | | | performed at [facility] | | | | | | [address];[place], [place] | | | | | | [address] | | | | + + + [...] EXTERNAL | | | | performed at [facility];[address] | | LAB | | | | [address];[place], [place] | | | | | | [address] | | | | + + + [...] | | EN LEVEL | performed at [facility];[address] | ug/mL | LAB | | | | [address];[place], [place] | | | | | | [address] | | | | + + + [...] TR | | | Vmax: 2.44 m/s Condenser Setter: Authenticated by: Finesse Cortez | | | [...] 23.26 cmAVA Vmax: 3.14 cm2AVA (VTI): 2.90 [id number] Dopp: | | 4.57 l/[id number] Dopp: 7.95 l/minHR: 117.60 BPMLVOT maxP.36 mmHgLVOT [...] maxP.88 mmHgTR Vmax: | | 2.44 m/s Condenser Setter: ABAuthenticated by: Finesse Aponte Date/Time: 11-15-2013 | [...] |TR Vmax: 2.44 m/s | | | |Condenser Setter: AB | |Authenticated by: Finesse Cortez MD [...] | | EN LEVEL | performed at [facility];[address] | ug/mL | LAB | | | | [address];[place], [place] | | | | | | [address] | | | | + + + [...] EXTERNAL | | | | performed at [facility];[address] | mmol/L | LAB | | | | [address];[place] | | | | | | [address] | | | | + + + + + + | K | 3.9Comment: Testing | 3.5 - 4.9 | EXTERNAL | | | | performed at [facility];[address] | mmol/L | LAB | | | | [address];[place] | | | | | | [address] | | | | + + + + + + | Cl | 114 (H)Comment: Testing | 99 - 109 mmol/L | EXTERNAL | | | | performed at [facility];[address] | | LAB | | | | [address];[place] | | | | | | [address] | | | | + + + + + + | CO2 | 20 (L)Comment: Testing | 23 - 32 mmol/L | EXTERNAL | | | | performed at [facility];[address] | | LAB | | | | [address];[place] | | | | | | [address] | | | | + + + + + + | Anion Gap | 14Comment: Testing | 5 - 20 mmol/L | EXTERNAL | | | | performed at [facility];[address] | | LAB | | | | [address];[place] | | | | | | [address] | | | | + + + + + + | Glucose, | 153 (H)Comment: Testing | 65 - 99 mg/dL | EXTERNAL | | | Fasting | performed at [facility];[address] | | LAB | | | | [address];[place] | | | | | | [address] | | | | + + + + + + | BUN | 8Comment: Testing | 8 - 25 mg/dL | EXTERNAL | | | | performed at [facility];[address] | | LAB | | | | [address];[place] | | | | | | [address] | | | | + + + + + + | Creatinine | 0.92Comment: Testing | 0.50 - 1.00 | EXTERNAL | | | | performed at [facility];888 | mg/dL | LAB | | | | [address];[place] | | | | | | [address] | | | | + + + + + + | BUN/Creatin | 9Comment: Testing | | EXTERNAL | | | ine Ratio | performed at [facility];[address] | | LAB | | | | [address];[place] | | | | | | [address] | | | | + + + + + + | Calcium | 7.4 (L)Comment: Testing | 8.5 - 10.2 | EXTERNAL | | | | performed at [facility];888 | mg/dL | LAB | | | | [address];[place] | | | | | | [address] | | | | + + + [...] | | | | | | at [facility];[address];[place] [address] | | | | + + + [...] EXTERNAL | | | | performed at [facility];[address] | | LAB | | | | [address];[place] | | | | | | [address] | | | | + + + [...] | | | | | | ACUTE VT Testing | | | | | | performed at [facility];[address] | | | | | | [address];[place], [place] | | | | | | [address] | | | | + + + [...] EXTERNAL | | | | performed at [facility];[address] | | LAB | | | | [address];[place] | | | | | | [address] | | | | + + + [...] | | EN LEVEL | performed at [facility];[address] | ug/mL | LAB | | | | [address];[place], [place] | | | | | | [address] | | | | + + + [...] EXTERNAL | | | | performed at [facility];888 | mmol/L | LAB | | | | [address];[place], [place] | | | | | | [address] | | | | + + + [...] EXTERNAL | | | | performed at [facility] | | LAB | | | | [address];[place] | | | | | | [address] | | | | + + + [...] | | | | | | ACUTE VT CKTRP PHONED TO | | | | | | ICU GAYLE N AT 0540 BY | | | | | | LJREAD BACK RESULTS | | | | | | VERIFIEDTesting | | | | | | performed at [facility];[address] | | | | | | [address];[place] | | | | | | [address] | | | | + + + [...] | LAB | | | | [address], | | | | | | [place] [address] | | | | + + + + + + | RED CELL | 3.94Comment: Testing | 3.70 - 5.10 | EXTERNAL | | | COUNT | performed at [facility], [address] | M/uL | LAB | | | | [address], | | | | | | [place] [address] | | | | + + + + + + | Hgb | 10.9 (L)Comment: Testing | 11.3 - 15.5 | EXTERNAL | | | | performed at [facility], [address] | g/dL | LAB | | | | [address], | | | | | | [place] [address] | | | | + + + + + + | Hematocrit, | 33.7 (L)Comment: Testing | 34.0 - 46.0 % | EXTERNAL | | | POC | performed at [facility], [address] | | LAB | | | | [address], | | | | | | [place] [address] | | | | + + + + + + | MCV | 85.6Comment: Testing | 80.0 - 100.0 fl | EXTERNAL | | | | performed at [facility], [address] | | LAB | | | | [address], | | | | | | [place] [address] | | | | + + + + + + | MCH | 27.7Comment: Testing | 27.0 - 34.0 pg | EXTERNAL | | | | performed at [facility], [address] | | LAB | | | | [address], | | | | | | [place] [address] | | | | + + + + + + | MCHC | 32.3Comment: Testing | 32.0 - 35.5 | EXTERNAL | | | | performed at [facility], [address] | g/dL | LAB | | | | [address], | | | | | | [place] [address] | | | | + + + + + + | RDW-CV | 37.6Comment: Testing | 37 - 53 fl | EXTERNAL | | | | performed at [facility], [address] | | LAB | | | | [address], | | | | | | [place] [address] | | | | + + + + + + | Platelet | 196Comment: Testing | 150 - 400 K/uL | EXTERNAL | | | Count | performed at [facility], [address] | | LAB | | | Plasma | [address], | | | | | | [place] [address] | | | | + + + + + + | MPV | 7.3Comment: Testing | fl | EXTERNAL | | | | performed at [facility], [address] | | LAB | | | | [address], | | | | | | [place] [address] | | | | + + + + + + | Differentia | AUTOMATEDComment: | | EXTERNAL | | | l Type | Testing performed at | | LAB | | | | [facility], [address] | | | | | | [place] | | | | | | [address] | | | | + + + [...] | | | Serum | performed at [facility];[address] | mOsm/kg | LAB | | | | [address];[place] | | | | | | [address] | | | | + + + [...] EXTERNAL | | | | performed at [facility];[address] | | LAB | | | | [address];[place], [place] | | | | | | [address] | | | | + + + [...] | | EN LEVEL | performed at [facility];[address] | ug/mL | LAB | | | | [address];[place], [place] | | | | | | [address] | | | | + + + [...] EXTERNAL | | | | performed at [facility];[address] | mmol/L | LAB | | | | [address];[place] | | | | | | [address] | | | | + + + + + + | K | 3.2 (L)Comment: Testing | 3.5 - 4.9 | EXTERNAL | | | | performed at [facility];[address] | mmol/L | LAB | | | | [address];[place] | | | | | | [address] | | | | + + + + + + | Cl | 117 (H)Comment: Testing | 99 - 109 mmol/L | EXTERNAL | | | | performed at [facility];[address] | | LAB | | | | [address];[place] | | | | | | [address] | | | | + + + + + + | CO2 | 13 (LL)Comment: CO2 | 23 - 32 mmol/L | EXTERNAL | | | | PHONED TO AIDEE Butt AT | | LAB | | | | 0520 BY LJREAD BACK | | | | | | RESULTS VERIFIEDTesting | | | | | | performed at [facility];[address] | | | | | | [address];[place] | | | | | | [address] | | | | + + + + + + | Anion Gap | 20Comment: Testing | 5 - 20 mmol/L | EXTERNAL | | | | performed at [facility];[address] | | LAB | | | | [address];[place] | | | | | | [address] | | | | + + + + + + | Glucose, | 130 (H)Comment: Testing | 65 - 99 mg/dL | EXTERNAL | | | Fasting | performed at [facility];[address] | | LAB | | | | [address];[place] | | | | | | [address] | | | | + + + + + + | BUN | 8Comment: Testing | 8 - 25 mg/dL | EXTERNAL | | | | performed at [facility];[address] | | LAB | | | | [address];[place] | | | | | | [address] | | | | + + + + + + | Creatinine | 0.69Comment: Testing | 0.50 - 1.00 | EXTERNAL | | | | performed at [facility];[address] | mg/dL | LAB | | | | [address];[place] | | | | | | [address] | | | | + + + + + + | BUN/Creatin | 12Comment: Testing | | EXTERNAL | | | ine Ratio | performed at [facility];[address] | | LAB | | | | [address];[place] | | | | | | [address] | | | | + + + + + + | Calcium | 6.7 (L)Comment: Testing | 8.5 - 10.2 | EXTERNAL | | | | performed at [facility];[address] | mg/dL | LAB | | | | [address];[place] | | | | | | [address] | | | | + + + + + + | Protein, | 5.2 (L)Comment: Testing | 6.3 - 8.2 g/dL | EXTERNAL | | | Total | performed at [facility];[address] | | LAB | | | | [address];[place] | | | | | | [address] | | | | + + + + + + | Albumin | 3.3Comment: Testing | 3.3 - 4.8 g/dL | EXTERNAL | | | | performed at [facility];[address] | | LAB | | | | [address];[place] | | | | | | [address] | | | | + + + + + + | Globulin | 1.9Comment: Testing | 1.3 - 4.9 g/dL | EXTERNAL | | | | performed at [facility];[address] | | LAB | | | | [address];[place] | | | | | | [address] | | | | + + + + + + | A/G Ratio | 1.8Comment: Testing | 1.0 - 2.4 | EXTERNAL | | | | performed at [facility];[address] | | LAB | | | | [address];[place] | | | | | | [address] | | | | + + + + + + | Bilirubin | 0.2Comment: Testing | 0.1 - 1.5 mg/dL | EXTERNAL | | | Total | performed at [facility];[address] | | LAB | | | | [address];[place] | | | | | | [address] | | | | + + + + + + | ALP, | 47Comment: Testing | 35 - 115 U/L | EXTERNAL | | | External | performed at [facility];[address] | | LAB | | | | [address];[place] | | | | | | [address] | | | | + + + + + + | AST | 49 (H)Comment: Testing | 10 - 45 U/L | EXTERNAL | | | | performed at [facility];[address] | | LAB | | | | [address];[place] | | | | | | [address] | | | | + + + + + + | ALT | 61Comment: Testing | 10 - 65 U/L | EXTERNAL | | | | performed at [facility];[address] | | LAB | | | | [address];[place] | | | | | | [address] | | | | + + + [...] | | | | | | at [facility];[address] [place] [address] | | | | | | [facility];[place] [address] | | | | + + + [...] | | | Fingerstick | performed at [facility];[address] | | LAB | | | | [address];[place] | | | | | | [address] [...] | | LAB | | | | [facility];[address];[place] [address] | | | | + + + + + + | PCO2 ART | 40Comment: Testing | 35 - 45 mmHg | EXTERNAL | | | | performed at [facility];[address] | | LAB | | | | [address];[place] | | | | | | [address] | | | | + + + + + + | PO2 ART | 283 (H)Comment: Testing | 80 - 105 mmHg | EXTERNAL | | | | performed at [facility];[address] | | LAB | | | | [address];[place] | | | | | | [address] | | | | + + + + + + | Lactate, | 3.7 (H)Comment: Testing | 0.36 - 1.25 | EXTERNAL | | | Arterial | performed at [facility];[address] | mmol/L | LAB | | | | [address];[place] | | | | | | [address] | | | | + + + + + + | HCO3 ART | 14 (L)Comment: Testing | 22 - 26 mmol/L | EXTERNAL | | | | performed at [facility];[address] | | LAB | | | | [address];[place] | | | | | | [address] | | | | + + + + + + | POC | 15 (L)Comment: Testing | 23 - 27 mEq/L | EXTERNAL | | | APPEARANCE | performed at [facility];[address] | | LAB | | | UA | [address];[place] | | | | | | [address] | | | | + + + + + + | Base | 15 (H)Comment: Testing | 0.0 - 2.0 | EXTERNAL | | | deficit | performed at [facility];[address] | mmol/L | LAB | | | | [address];[place] | | | | | | [address] | | | | + + + + + + | O2 SAT ART | 100 (H)Comment: Testing | 95 - 98 % | EXTERNAL | | | | performed at [facility];[address] | | LAB | | | | [address];[place] | | | | | | [address] | | | | + + + + + + | FiO2, POC | 70Comment: Testing | % | EXTERNAL | | | | performed at [facility];[address] | | LAB | | | | [address];[place] | | | | | | [address] | | | | + + + + + + | Comment, | Tidal Volume = | | EXTERNAL | | | POC | 500Comment: Peep = 5Resp | | LAB | | | | Rate = 15Testing | | | | | | performed at [facility];[address] | | | | | | [address];[place] | | | | | | [address] | | | | + + + [...] EXTERNAL | | | | performed at [facility];[address] | mmol/L | LAB | | | | [address];[place], [place] | | | | | | [address] | | | | + + + [...] | | | (Calc) | performed at [facility];888 | mmol/L | LAB | | | | [address];[place] | | | | | | [address] | | | | + + + + + + | pH, Bld | 7.179 (L)Comment: | 7.300 - 7.450 | EXTERNAL | | | | Testing performed at | | LAB | | | | [facility];[address] [facility] | | | | | | [address]vd;[place] [address] | | | | + + + [...] | | | Patient | performed at [facility] | | LAB | | | | [address];[place], [place] | | | | | | [address] | | | | + + + [...] | | | | | performed at [facility];[address] | | | | | | [address];[place], [place] | | | | | | [address] | | | | + + + [...] EXTERNAL | | | | performed at [facility];[address] | | LAB | | | | [address];[place] | | | | | | [address] | | | | + + + + + + | RED CELL | 4.41Comment: Testing | 3.70 - 5.10 | EXTERNAL | | | COUNT | performed at [facility];[address] | M/uL | LAB | | | | [address];[place] | | | | | | [address] | | | | + + + + + + | Hgb | 12.7Comment: Testing | 11.3 - 15.5 | EXTERNAL | | | | performed at [facility];888 | g/dL | LAB | | | | [address];[place] | | | | | | [address] | | | | + + + + + + | Hematocrit, | 37.4Comment: Testing | 34.0 - 46.0 % | EXTERNAL | | | POC | performed at [facility];[address] | | LAB | | | | [address];[place] | | | | | | [address] | | | | + + + + + + | MCV | 84.7Comment: Testing | 80.0 - 100.0 fl | EXTERNAL | | | | performed at [facility];[address] | | LAB | | | | [address];[place] | | | | | | [address] | | | | + + + + + + | MCH | 28.8Comment: Testing | 27.0 - 34.0 pg | EXTERNAL | | | | performed at [facility];[address] | | LAB | | | | [address];[place] | | | | | | [address] | | | | + + + + + + | MCHC | 34.0Comment: Testing | 32.0 - 35.5 | EXTERNAL | | | | performed at [facility];888 | g/dL | LAB | | | | [address];[place] | | | | | | [address] | | | | + + + + + + | RDW-CV | 37.2Comment: Testing | 37 - 53 fl | EXTERNAL | | | | performed at [facility];[address] | | LAB | | | | [address];[place] | | | | | | [address] | | | | + + + + + + | Platelet | 296Comment: Testing | 150 - 400 K/uL | EXTERNAL | | | Count | performed at [facility];[address] | | LAB | | | Plasma | [address];[place] | | | | | | [address] | | | | + + + + + + | MPV | 7.2Comment: Testing | fl | EXTERNAL | | | | performed at [facility];[address] | | LAB | | | | [address];[place] | | | | | | [address] | | | | + + + + + + | Differentia | AUTOMATEDComment: | | EXTERNAL | | | l Type | Testing performed at | | LAB | | | | [facility];[address];[place] [address] | | | | + + + [...] EXTERNAL | | | | performed at [facility];[address] | | LAB | | | | [address];[place] | | | | | | [address] | | | | + + + [...] EXTERNAL | | | | performed at [facility] | | LAB | | | | [address];[place], [place] | | | | | | [address] [...] | | EN LEVEL | performed at [facility];888 | ug/mL | LAB | | | | [address];[place] | | | | | | [address] | | | | + + + [...] | | | Total | performed at [facility];[address] | | LAB | | | | [address];[place] | | | | | | [address] | | | | + + + + + + | Albumin | 3.1 (L)Comment: Testing | 3.3 - 4.8 g/dL | EXTERNAL | | | | performed at [facility];[address] | | LAB | | | | [address];[place] | | | | | | [address] | | | | + + + + + + | Bilirubin | 0.2Comment: Testing | 0.1 - 1.5 mg/dL | EXTERNAL | | | Total | performed at [facility];[address] | | LAB | | | | [address];[place] | | | | | | [address] | | | | + + + + + + | Bilirubin | <0.1Comment: Testing | 0.0 - 0.3 mg/dL | EXTERNAL | | | Direct | performed at [facility];[address] | | LAB | | | | [address];[place] | | | | | | [address] | | | | + + + + + + | ALP, | 76Comment: Testing | 35 - 115 U/L | EXTERNAL | | | External | performed at [facility];[address] | | LAB | | | | [address];[place] | | | | | | [address] | | | | + + + + + + | AST | 75 (H)Comment: Testing | 10 - 45 U/L | EXTERNAL | | | | performed at [facility];[address] | | LAB | | | | [address];[place] | | | | | | [address] | | | | + + + + + + | ALT | 67 (H)Comment: Testing | 10 - 65 U/L | EXTERNAL | | | | performed at [facility];[address] | | LAB | | | | [address];[place] | | | | | | [address] | | | | + + + [...] EXTERNAL | | | | performed at [facility];888 | mmol/L | LAB | | | | [address];[place] | | | | | | [address] | | | | + + + + + + | K | 3.0 (L)Comment: Testing | 3.5 - 4.9 | EXTERNAL | | | | performed at [facility];888 | mmol/L | LAB | | | | [address];[place] | | | | | | [address] | | | | + + + + + + | Cl | 114 (H)Comment: Testing | 99 - 109 mmol/L | EXTERNAL | | | | performed at [facility];[address] | | LAB | | | | [address];[place] | | | | | | [address] | | | | + + + + + + | CO2 | 16 (L)Comment: Testing | 23 - 32 mmol/L | EXTERNAL | | | | performed at [facility];[address] | | LAB | | | | [address];[place] | | | | | | [address] | | | | + + + + + + | Anion Gap | 16Comment: Testing | 5 - 20 mmol/L | EXTERNAL | | | | performed at [facility];[address] | | LAB | | | | [address];[place] | | | | | | [address] | | | | + + + + + + | Glucose, | 187 (H)Comment: Testing | 65 - 99 mg/dL | EXTERNAL | | | Fasting | performed at [facility];[address] | | LAB | | | | [address];[place] | | | | | | [address] | | | | + + + + + + | BUN | 10Comment: Testing | 8 - 25 mg/dL | EXTERNAL | | | | performed at [facility];[address] | | LAB | | | | [address];[place] | | | | | | [address] | | | | + + + + + + | Creatinine | 0.79Comment: Testing | 0.50 - 1.00 | EXTERNAL | | | | performed at [facility];888 | mg/dL | LAB | | | | [address];[place] | | | | | | [address] | | | | + + + + + + | BUN/Creatin | 13Comment: Testing | | EXTERNAL | | | ine Ratio | performed at [facility];[address] | | LAB | | | | [address];[place] | | | | | | [address] | | | | + + + + + + | Calcium | 6.5 (L)Comment: Testing | 8.5 - 10.2 | EXTERNAL | | | | performed at [facility];888 | mg/dL | LAB | | | | [address];[place] | | | | | | [address] | | | | + + [...] | | | | | | at [facility];[address] | | | | [address];[place] [address] | | | | + + + [...] Conversion - 06/15/2019 1:42 PM PDT RONALD [id number] years | | FemaleCT HEAD WO CONTRAST11/14/2013 [...] | Testing performed at | | | [facility];[address] [facility];[place] [address] GRAM STAIN | | | GREATER THAN 10 WBCS/LPF | | | LESS THAN 10 SEC/LPF | | | 2+ GRAM POSITIVE COCCI | | | 1+ GRAM POSITIVE RODS | | | Testing performed at [facility], [address] | | | [place] [address] CULTURE | | | 2+ NORMAL UPPER RESPIRATORY CURTIS | | | Testing performed at [facility], [address] | | | [place] [address] REPORT STATUS | | | 11/16/2013 FINAL [...] EXTERNAL | | | | performed at [facility];[address] | | LAB | | | | [address];[place] | | | | | | [address] | | | | + + + + + + | RBC, UA | 0-2Comment: Testing | 0 - 5 /hpf | EXTERNAL | | | | performed at [facility];[address] | | LAB | | | | [address];[place] | | | | | | [address] | | | | + + + + + + | Epithelial | NONE SEENComment: | /lpf | EXTERNAL | | | Cells | Testing performed at | | LAB | | | | [facility];[address];[place] [address] | | | | + + + + + + | Bacteria, | TRACE (A)Comment: | | EXTERNAL | | | UA | Testing performed at | | LAB | | | | [facility];[address] [place] [address] | | | | | | [facility];[place] [address] | | | | + + + [...] EXTERNAL | | | | performed at [facility];[address] | | LAB | | | | [address];[place] | | | | | | [address] | | | | + + + + + + | Clarity | CLEARComment: Testing | | EXTERNAL | | | | performed at [facility];[address] | | LAB | | | | [address];[place] | | | | | | [address] | | | | + + + + + + | Specific | 1.004Comment: Testing | 1.001 - 1.035 | EXTERNAL | | | Holliday | performed at [facility];[address] | | LAB | | | | [address];[place] | | | | | | [address] | | | | + + + + + + | Leukocyte | TRACE (A)Comment: | | EXTERNAL | | | Esterase, | Testing performed at | | LAB | | | Urine | [facility];[address];[place] [address] | | | | + + + + + + | Nitrite, | NEGATIVEComment: Testing | | EXTERNAL | | | Urine | performed at [facility];[address] | | LAB | | | | [address];[place] | | | | | | [address] | | | | + + + + + + | Urobilinoge | 0.2Comment: Testing | mg/dL | EXTERNAL | | | n, Urine | performed at [facility];[address] | | LAB | | | | [address];[place] | | | | | | [address] | | | | + + + + + + | Protein, | NEGATIVEComment: Testing | mg/dL | EXTERNAL | | | Urine | performed at [facility];[address] | | LAB | | | | [address];[place] | | | | | | [address] | | | | + + + + + + | pH, Urine | 5.0Comment: Testing | 4.6 - 8.0 | EXTERNAL | | | | performed at [facility];[address] | | LAB | | | | [address];[place] | | | | | | [address] | | | | + + + + + + | Blood, | NEGATIVEComment: Testing | | EXTERNAL | | | Urine | performed at [facility];[address] | | LAB | | | | [address];[place] | | | | | | [address] | | | | + + + + + + | Ketones | NEGATIVEComment: Testing | mg/dL | EXTERNAL | | | | performed at [facility];[address] | | LAB | | | | [address];[place] | | | | | | [address] | | | | + + + + + + | Bilirubin, | NEGATIVEComment: Testing | | EXTERNAL | | | Urine | performed at [facility];[address] | | LAB | | | | [address];[place] | | | | | | [address] | | | | + + + + + + | Glucose, | NEGATIVEComment: Testing | mg/dL | EXTERNAL | | | Urine | performed at [facility];[address] | | LAB | | | | [address];[place] | | | | | | [address] | | | | + + + [...] EXTERNAL LAB | | Testing performed at [facility];[address] [place] [address];[place] [address] MRSA PCR | | | NEGATIVE Testing performed at | | | [address];[place] [address] | | + + + + +---------+ [...] | | | Fingerstick | performed at [facility];[address] | | LAB | | | | [address];[place], [place] | | | | | | [address] | | | | + + + [...]
--- OUTSIDE RECORDS SUMMARY | ~2019-09-24 | XMS | Encounter Summary ---
Demographics + + + | Address | [address] | | | [place] [address] | + + + | Home Phone [...] Providers + +------+ + | Care Call Worker Person Name | Role | Phone | [...] CRNA | | | 2019 | Event [facility] | [address] | | | | | [address]PER[address] | [place] [address] | | | | | [address] | [phone] | | | | | [place], [place] | | | | | | [address] | | | | | | [phone] | | | +--------+ + + + [...] +----+---+ + + | | 0 | Amory | | | | 9 | 43-degrees [...] [address] | | eral | Antecubital; [id number] | Mikayla Marcial, | [address], | [...] | | | | | | DRIVE [place], [place] | | | | | | [address] | | | | | | | [...] - 08/03/2019 9:52 AM PDT Anesthesia Airway Lpbmzlazn37/4/2019 | | 9:33Preprocedure check: patient identified, oxygen, [...]
--- OUTSIDE RECORDS SUMMARY | ~2019-09-24 | XMS | Encounter Summary ---
Demographics + + + | Address | [address] | | | [place] [address] | + + + | Home Phone [...] Team Providers + +------+ + | Care Functional Skills Tutor Name | Role | Phone | [...] | | Closed | [facility] | [address] [place], | | | | | compression | DRIVE | [place] [address] | | | | | fracture of | [place], | Phone: | | | | | fifth lumbar | [place] [address] | [phone] | | | | | vertebra | Phone: | Fax: | | | | | sequela | [phone] | [phone] | | | | | Degenerative | Fax: | | | | | | lumbar | [phone] | | | | | | spinal [...] + + | 09/18/ | Office | [facility] | Alfredo Casillas, DO | S/P insertion of | | 2019 | Visit | [facility] | [address] | spinal cord | | | | [address] | [place] [address] | stimulator (Primary | | | | [address] [place], | [phone] | Dx); Spinal stenosis | | | | [place] [address] | | of lumbosacral | | | | [phone] | | region; Lumbar | | | [...] Casillas DO - 09/18/2019 9:10 AM PST [facility]: Interventional Pain Management 09/18/2019 Kori [...] pain Cancer ([facility]) 2004 breast Cataract Cerebrovascular accident [...] controlled Diabetes type 2, controlled ([facility]) diet controlled [...] Procedure: KYPHOPLASTY; Surgeon: Alfredo Casillas DO; Location: [facility] MAIN OR; Service: Pa in [...] level: Not on file Occupational History Occupation: [employer] Social Needs Financial resource strain: Not on [...] file Gets together: Not on file Attends mosque service: Not on file Active member of [...] did refer her to an orthopedist in [place] where she randal es; so, we will [...] 09/18/2019 This document has been prepared with [employer] voice recognition system. The possibility of "s ound alike" paleontological helper errors, and additions, or deletions may occur. [...] [place] | | | | | | [id number] | | | | | | | [...]
--- OUTSIDE RECORDS SUMMARY | ~2019-09-24 | XMS | Encounter Summary ---
Demographics + + + | Address | [address] | | | [place] [address] | + + + | Home Phone [...] Providers + +------+ + | Care Superintendent Menagerie Name | Role | Phone | + +------+ + PCP | Unavailable | + +------+ + Encounter Details +--------+ + + + + | Date | Type | Department | Care Team | Description | +--------+ + + + + | 06/26/ | Respiratory | | Other, Faculty | | | 2006 | Therapy | | [phone] | | +--------+ + + + + [...] Hassan, | | | | | | WATER TRAINER | | | | + + + [...] RAD[facility] ALONZO | [address] | [place], [place] | | | DIAGNOSTICS - | [place] | [address] | | | PULMONARY FUNCTION | | | | + + + + + documented in this encounter Visit Diagnoses Not on filedocumented in this encounter"
--- OUTSIDE RECORDS SUMMARY | ~2019-09-24 | XMS | Encounter Summary ---
Demographics + + + | Address | [address] | | | [place] [address] | + + + | Home Phone [...] Providers + +------+ + | Care Superintendent Name | Role | Phone | [...] | | | stenosis | B | [address] | | | | | | [place], [place] | Phone: | | | | | | [address] | [phone] | | | | | | Phone: | Fax: | | | | | | [phone] | [phone] | | | | | | Fax: | | | | | | | [phone] | | + +--------+ + + + + Encounter Details +--------+---------+ + + + | Date | Type | Department | Care Team | Description | +--------+---------+ + + + | 07/18/ | Office | [facility] | Denys Sibley, | Lumbar region | | 2018 | Visit | [facility] | DO [address] | somatic dysfunction | | | | [address] [place] | (Primary Dx); | | | | [address] | [address] | Intractable back | | | | [place] | | pain; Encounter for | | | | [address] | | long-term use of | | | | [phone] | | opiate analgesic; | | | [...] Diagnosis Date Acute renal failure ([facility]) April 2013 Anesthesia hallucinated after bladder repair Arthralgia Asthma Asthma Cancer ([facility]) 2004 breast Cerebrovascular accident (CVA) ([facility]) no per pt Chronic back pain Chronic back pain Concussion 07/2015 Preceeded by seizure Constipation COPD (chronic obstructive pulmonary disease) ([facility]) Degenerative disc disease Depression Depression Diabetes mellitus ([facility]) Diabetes mellitus, type 2 ([facility]) diet controlled Diarrhea Disorder of thyroid [...] physical therapy, mass age therapy, acupuncture, healthcare administrative assistant, along with recommended psychological counseling , either privately, or in group sessions offered by private care individuals, community serv ices, or episcopalian organizations. Appropriate referrals were made at patient [...] Will return to office in 4 weeks, [facility] was consulted and appears appropriate, [...] the passage of time. long term care pharmacist use is also associated with depressions, and [...] [place] | | | | | | [address] | | | | | | | [...]
--- OUTSIDE RECORDS SUMMARY | ~2019-09-24 | XMS | Encounter Summary ---
Demographics + + + | Address | [address] | | | [place] [address] | + + + | Home Phone [...] Team Providers + +------+ + | Care Substance Abuse Counselor Name | Role | Phone | [...] | [address] | [place] | | | | | [address] [place], [place] | [place], [place] | | | | | [address] | [address] | | | | | [phone] | | | +--------+ + + + [...] [place] | | | | | | [id number] | | | | | | | | +--------+---------+ + + + documented as of this encounter Visit Diagnoses Not on filedocumented in this encounter"
--- OUTSIDE RECORDS SUMMARY | ~2019-09-24 | XMS | Encounter Summary ---
Demographics + + + | Address | [address] | | | [place] [address] | + + + | Home Phone [...] Team Providers + +------+ + | Care Arabic Translator Name | Role | Phone | + +------+ + | No, Physician | PCP | Unavailable | + +------+ + Encounter Details +--------+ + + + + | Date | Type | Department | Care Team | Description | +--------+ + + + + | 01/03/ | [facility] | [facility] | Shay Dietz | | | 2013 | Encounter | MED CTR XRAY [address] | [address], [address] | | | | | [place] | [address] [place] | | | | | [place] [address] | [address] | | | | | [phone] | | | +--------+ + + + [...] [place] | | | | | | [address] | | | | | | | | +--------+---------+ + + + documented as of this encounter Visit Diagnoses Not on filedocumented in this encounter"
--- OUTSIDE RECORDS SUMMARY | ~2019-09-24 | XMS | Encounter Summary ---
Demographics + + + | Address | [address] | | | [place] [address] | + + + | Home Phone [...] Providers + +------+ + | Care Lead Manufacturing Engineer Name | Role | Phone | + +------+ + | Romy De LaP az MD | PCP | | + +------+ + Encounter Details +--------+ + + + + | Date | Type | Department | Care Team | Description | +--------+ + + + + | 05/04/ | Orders Only | [facility] | Dora Ryan V, | | | 2017 | | CONVERSION [address] | MD [address] | | | | | [address] [place] | [address] [place], [place] | | | | | [place], [place] | [address] | | | | | [address] | | | | | | [phone] | | | +--------+ + + + [...] | | | | | | DRIVE [place], [place] | | | | | | [address] | | | | | | | [...] 0.88 m/s MV | | | Dec Peach: 3.57 m/s2 MV DecT: 230.60 ms MV E Mark: 0.82 m/s | | | MV E/A Ratio: 0.93 MV PHT: 66.87 ms MVA By PHT: 3.28 cm2 | | | Septal e': 0.05 m/s Septal E/e': 15.05 Lateral e': 0.08 m/s | | | Lateral E/e': 9.70 RAP: 5 mmHg Informatica: | | | Authenticated by: Nena Franco Report Date/Time: -- | | | 53_[id number]:11:24 | | + + + + + [...] cmLVPWd: 0.73 cmLVOT Area: 3.03 | | [id number] Diam: 1.96 cm%FS: 33.05 %EF(Teich): 62.03 %ESV(Teich): 29.33 mlLVIDs: | | 2.79 cmSV(Teich): 47.94 mlRVIDd: 2.59 cmLAESV(A-L): 41.85 mlLAESV Index (A-L): | | 26.32 ml/m2LAAs A2C: 12.87 [id number] A-L A2C: 32.77 mlLALs A2C: 4.29 cmLAAs A4C: | | 16.44 [id number] A-L A4C: 50.32 mlLALs A4C: 4.55 cmAV maxP.92 mmHgAV meanPG: | | 4.38 mmHgAV Vmax: 1.40 m/Tisha Vmean: 0.99 m/Tisha VTI: 32.81 cmAVA Vmax: 2.11 | | cm2AVA (VTI): 2.40 pz4YVMU (Vmax): 0.00 cm2/m2AVAI (VTI): 0.00 cm2/m2LVOT maxPG: | | 3.84 mmHgLVOT meanP.47 mmHgLVSI Dopp: 49.70 ml/m2LVSV Dopp: 79.02 mlLVOT | | Vmax: 0.98 m/sLVOT Vmean: 0.75 m/sLVOT VTI: 26.05 cmMV A Mark: 0.88 m/sMV Dec | | Peach: 3.57 m/s2MV DecT: 230.60 msMV E Mark: 0.82 m/sMV E/A Ratio: 0.93MV PHT: | | 66.87 msMVA By PHT: 3.28 uy0Rlvirq e': 0.05 m/sSeptal E/e': 15.05Lateral e': | | 0.08 m/sLateral E/e': 9.70RAP: 5 mmHg Informatica:Authenticated by: Nena | | AlshelmraReport Date/Time: -- 08_[id number]_24:11:24 IMPRESSION: 1. This was a technically | [...] A Mark: 0.88 m/s | |MV Dec Peach: 3.57 m/s2 | |MV DecT: 230.60 ms | |MV E Mark: 0.82 m/s | |MV E/A Ratio: 0.93 | |MV PHT: 66.87 ms | |MVA By PHT: 3.28 cm2 | |Septal e': 0.05 m/s | |Septal E/e': 15.05 | |Lateral e': 0.08 m/s | |Lateral E/e': 9.70 | |RAP: 5 mmHg | | | |Informatica: | |Authenticated by: Nena Franco | |Report Date/Time: -- [id number]_[id number]:11:24 | | | |IMPRESSION: | |1. This [...]
--- OUTSIDE RECORDS SUMMARY | ~2019-09-24 | XMS | Encounter Summary ---
Demographics + + + | Address | [address] | | | [place] [address] | + + + | Home Phone [...] Providers + +------+ + | Care Ship Worker Name | Role | Phone | [...] + | 05/09/ | Telephone | [facility] | Nick Martinez, | Results, Imaging | | 2017 | | PHYSIATRY [address] | PA-C [address] | | | | | [place], | [address] [place] | | | | | [place] [address] | [place] [address] | | | | | [phone] | [phone] | | | | | | | [...] [place] | | | | | | [address] | | | | | | | | +--------+---------+ + + + documented as of this encounter Visit Diagnoses Not on filedocumented in this encounter"
--- OUTSIDE RECORDS SUMMARY | ~2019-09-24 | XMS | Encounter Summary ---
Demographics + + + | Address | [address] | | | [place] [address] | + + + | Home Phone [...] Providers + +------+ + | Care Electronic Maintenance Supervisor Name | Role | Phone [...] + + | 07/26/ | Telephone | [facility] | Darrin Hoyos | Records Request (MRI | | 2013 | | NEUROSURGERY [address] | [address] | OF LUMBAR SPINE) | | | | [address] | [address] | | | | | [place] | [place] | | | | | [address] | [address] | | | | | [phone] | | | +--------+ + + + [...] | | [address] | | | | | | | | +--------+---------+ + + + documented as of this encounter Visit Diagnoses Not on filedocumented in this encounter"
--- OUTSIDE RECORDS SUMMARY | ~2019-09-24 | XMS | Encounter Summary ---
Demographics + + + | Address | [address] | | | [place] [address] | + + + | Home Phone [...] Team Providers + +------+ + | Care Non Destructive Tester Name | Role | Phone | [...] | | 2016 | Encounter | at [facility] [address] | [address] | medical records from | | | | Abbe Soto Mailcode: | [address] [place], | [facility] in | | | | [facility] [place] | [place] [address] | [facility] | | | | [facility], | [phone] | in [facility] | | | | [facility] | | Ant | | | | floor [place], [place] | | | | | | [address] | | | | | | [phone] | | | +--------+ + + + [...]
--- OUTSIDE RECORDS SUMMARY | 2019-09-24 15:46 | XMS ---
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 Care History Medical/Surgical 08/08/2019 [facility] - PATIENT HAS AN APT WITH PCP DR DE LA PAZ ON 08/13/19. 02/06/2019 [facility] - Patient is currently established with [facility]. If patient is seen in the ED during business hours. Please contact [facility] at [facility]. Care Recommendation: This patient has had 5 or more Emergency Department visits in the last 12 months.\T\nbsp; Patient requires education on the scope and purpose of the ED as an acute care provider not a Primary Care Provider and should not be utilized for chronic conditions.\T\nbsp; These are guidelines and the provider should exercise clinical judgment when providing care. 06/28/2018 [facility] HISTORY:\T\nbsp; DM/ COPD, RESTLESS LEGS/ DEPRESSION/ TARDIVE DYSKINESIA/ CHRONIC PAIN/ MULTIPLE OVERDOSE ATTEMPTS/ SCOLIOSIS/ DEGEN DISC DISEASE/ BONE SPUR E.D. VISIT COUNT (12 MO.) 1 Nicole Youssef 6 [facility]. TOTAL 7 NOTE: Visits indicate total known visits. ED/UCC VISIT TRACKING (12 MO.) 09/24/2019 15:43 [facility] [place] TYPE: Emergency COMPLAINT: - NAUSEA, VOMITING, DIARRHEA 08/09/2019 11:06 [facility] [place] TYPE: Emergency COMPLAINT: - POST OP PROBLEM DIAGNOSES: - jail (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 of opiate analgesic - Chronic obstructive pulmonary disease, unspecified - Allergy status to oth drug/meds/biol subst status - 1 Type 2 diabetes mellitus without complications - Low back pain - Major depressive disorder, single episode, unspecified - Other chronic pain - jail (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 of systemic steroids - Other acute postprocedural pain - Other penitentiary (current) 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 08/07/2019 22:09 [facility] [place] TYPE: Emergency COMPLAINT: - BACK PAIN DIAGNOSES: - Other penitentiary (current) 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 - Encounter for change or removal of surgical wound dressing - Allergy status to oth drug/meds/biol subst status - Low back pain - 1 Type 2 diabetes mellitus without complications 05/27/2019 19:32 [facility] [place] TYPE: Emergency DIAGNOSES: - Other chronic pain - Syncope and collapse - Unspecified fall, initial encounter - medic 7/altered - Dorsalgia, unspecified - Weakness 05/16/2019 22:58 [facility] [place] TYPE: Emergency COMPLAINT: - MULTIPLE COMPLIAINT DIAGNOSES: - Allergy status to narcotic agent status - Chronic obstructive pulmonary disease, unspecified - Allergy status to oth drug/meds/biol subst status - Fasciculation - Other intermediate accountant (current) 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 - 1 Type 2 diabetes mellitus without complications - Bipolar disorder, unspecified - jail (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 of opiate analgesic - Major depressive disorder, single episode, unspecified 02/05/2019 05:23 [facility] [place] TYPE: Emergency COMPLAINT: - ABD PAIN DIAGNOSES: - Allergy status to oth drug/meds/biol subst status - Bipolar disorder, unspecified - Chronic obstructive pulmonary disease, unspecified - 1 Type 2 diabetes mellitus without complications - Dysuria - Other penitentiary (current) 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 - Urinary tract infection, site not specified 10/14/2018 12:[address] [facility] [place] TYPE: Emergency COMPLAINT: - FALL/RIB PAIN DIAGNOSES: - Chronic obstructive pulmonary disease, unspecified - 1 Type 2 diabetes mellitus without complications - Striking against or struck by other objects, init encntr - Other chronic pain - Bipolar disorder, unspecified - Other penitentiary (current) 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 - Contusion of left front wall of thorax, initial encounter - Allergy status to oth drug/meds/biol subst status - Low back pain INPATIENT VISIT TRACKING (12 MO.) No inpatient visits to display in this time frame [email or web address]
[2019-09-24] MEDS ORDERED: PROMETHAZINE HC25 M1 PO (17:29)
[2019-09-24] MEDS ORDERED: TESSALON PERLE100 MG PO (17:29)
[2019-09-24] MEDS ORDERED: MACROBID 100 M100 MG PO (17:29)
== END 2019-09-24 17:56 | disposition home or self-care (01) ==
LOC: ED 15:42
DX: R11.2 Nausea with vomiting, unspecified (principal); R19.7 Diarrhea, unspecified; N39.0 Urinary tract infection, site not specified; E11.9 Type 2 diabetes mellitus without complications; J44.9 Chronic obstructive pulmonary disease, unspecified; F31.9 Bipolar disorder, unspecified; Z88.8 Allergy status to other drugs, medicaments and biological substances; Z79.52 Long term (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 of systemic steroids; Z79.899 Other long term (current) 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; Z79.891 Long term (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 of opiate analgesic
CPT/HCPCS: 80053; 81001; 83735; 85025; 96361; 96374; 99284-25; J2405; J7040

== ENCOUNTER 2019-09-28 11:50 | Inpatient (IN) | payer MEDICARE, OTHER ==
[~2019-09-28] VITALS: Ht 154.9 cm; Wt 49.9 kg
--- OUTSIDE RECORDS SUMMARY | ~2019-09-28 | XMS | Encounter Summary ---
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 Assessment & Plan S/p SCS placement with laminectomy Ordered S/W c/s today for home health prior to dc home this afternoon. Will have patient shower and change her dressings before she goes home. Change dressings after shower for the next 2 days. Activity restrictions, dressing changes d/w patient at length. KANG Davis 08/04/2019 Zacarias Zaragoza RN - 6:59 PM PDTEnd of shift chart audit check complete. Jane Kenney RN - 08/03/2019 4:06 PM PDTD linh Aguiar Notified per PT: that Pt is Unsafe to go home tonightneeds sniff/home H ealth followup. Pt To Stay over Night/general Dietvorb Julien Guzman. Judyronically signed by Jane Vaca RN at 08/03/2019 4:08 PM PDT Jane Vaca RN - 08/03/2019 3:02 PM PDTPT With Pt. Judyronically signed by Jane Vaca RN at 08/03/2019 3:03 PM PDT documented in this encounter Plan of Treatment +--------+---------+ + + + | Date | Type | Specialty | Care Team | Description | +--------+---------+ + + + | 10/15/ | Office | Pain Medicine | Denys Sibley, | | | 2018 | Visit | | DO [address] | | | | | | [address] [place] | | | | | | [address] | | | | | | | | +--------+---------+ + + + + + +--------+ + + | Name | Type | Priori | Associated Diagnoses | Order Schedule | | | | ty | | | + + +--------+ + + | Referral to Home | Outpatient | Routin | BACK PAIN, LUMBAR | Ordered: 08/04/2019 | | Health - OUTPATIENT | Referral | e | Chronic bilateral | | | | | | low back pain with | | | | | | right-sided sciatica | | + + +--------+ + + documented as of this encounter Procedures + +--------+ + + + | Procedure Name | Priori | Date/Time | Associated Diagnosis | Comments | | | ty | | | | + +--------+ + + + | POC GLUCOSE (NON | Routin | 08/03/2019 | | Results for this | | ORD) | e | 8:39 PM | | procedure are in the | | | | PDT | | results section. | + +--------+ + + + | POC GLUCOSE (NON | Routin | 08/03/2019 | | Results for this | | ORD) | e | 4:15 PM | | procedure are in the | | | | PDT | | results section. | + +--------+ + + + | POC GLUCOSE (NON | Routin | 08/03/2019 | | Results for this | | ORD) | e | 1:08 PM | | procedure are in the | | | | PDT | | results section. | + +--------+ + + + | POC GLUCOSE (NON | Routin | 08/03/2019 | | Results for this | | ORD) | e | 11:05 AM | | procedure are in the | | | | PDT | | results section. | + +--------+ + + + | FL C ZECHARIAH | Routin | 08/03/2019 | | Results for this | | | e | 10:27 AM | | procedure are in the | | | | PDT | | results section. | + +--------+ + + + | POC GLUCOSE (NON | Routin | 08/03/2019 | | Results for this | | ORD) | e | 10:06 AM | | procedure are in the | | | | PDT | | results section. | + +--------+ + + + | POC GLUCOSE (NON | Routin | 08/03/2019 | | Results for this | | ORD) | e | 9:14 AM | | procedure are in the | | | | PDT | | results section. | + +--------+ + + + | LAMINOTOMY THORACIC | | 08/03/2019 | Postlaminectomy | | | / LUMBAR W/ | | 9:07 AM | syndrome, thoracic | | | PLACEMENT SPINAL | | PDT | region | | | CORD STIMULATOR | | | Radiculopathy of | | | | | | thoracolumbar region | | + +--------+ + + + +---+--------+ | | | | | Specia | | | l | | | Needs | | | [employer] | | | reques | | | nighat, | | | Akhtar | +---+--------+ + +--------+ +---+ + | TYPE AND SCREEN | STAT | 08/03/2019 | | Results for this | | | | 7:46 AM | | procedure are in the | | | | PDT | | results section. | + +--------+ +---+ + | POC GLUCOSE (NON | Routin | 08/03/2019 | | Results for this | | ORD) | e | 7:23 AM | | procedure are in the | | | | PDT | | results section. | + +--------+ +---+ + documented in this encounter Results POC Glucose (08/03/2019 8:39 PM PDT) + + + + + + | Component | Value | Ref Range | Performed | Pathologist | | | | | At | Signature | + + + + + + | Glucose, | 92Comment: Testing | 65 - 99 mg/dL | [facility] | | | POC | performed at [facility];[address] | | LABORATORY | | | | [address];[place], [place] | | | | | | [address] | | | | + + + + + + + + | Specimen | + + | | + + + + + + + | Performing | Address | City/State/Zipcode | Phone Number | | Organization | | | | + + + + + | [facility] | [address] | [place] [address] | [phone] | + + + + + POC Glucose (08/03/2019 4:15 PM PDT) + + + + + + | Component | Value | Ref Range | Performed | Pathologist | | | | | At | Signature | + + + + + + | Glucose, | 99Comment: Testing | 65 - 99 mg/dL | [facility] | | | POC | performed at [facility];[address] | | LABORATORY | | | | [address];[place] | | | | | | [address] | | | | + + + + + + + + | Specimen | + + | | + + + + + + + | Performing | Address | City/State/Zipcode | Phone Number | | Organization | | | | + + + + + | [facility] | [address] | [place] [address] | [phone] | + + + + + POC Glucose (08/03/2019 1:08 PM PDT) + + + + + + | Component | Value | Ref Range | Performed | Pathologist | | | | | At | Signature | + + + + + + | Glucose, | 107 (H)Comment: Testing | 65 - 99 mg/dL | [facility] | | | POC | performed at [facility];[address] | | LABORATORY | | | | [address];[place], [place] | | | | | | [address] | | | | + + + + + + + + | Specimen | + + | | + + + + + + + | Performing | Address | City/State/Zipcode | Phone Number | | Organization | | | | + + + + + | [facility] | [address] | [place] [address] | [phone] | + + + + + POC Glucose (08/03/2019 11:05 AM PDT) + + + + + + | Component | Value | Ref Range | Performed | Pathologist | | | | | At | Signature | + + + + + + | Glucose, | 108 (H)Comment: Testing | 65 - 99 mg/dL | [facility] | | | POC | performed at [facility];[address] | | LAB[address]AT[address] | | | | [address];[place] | | | | | | [address] | | | | + + + + + + + + | Specimen | + + | | + + + + + + + | Performing | Address | City/State/Zipcode | Phone Number | | Organization | | | | + + + + + | [facility] | [address] | [place] [address] | [phone] | + + + + + LINSEY Moralez (08/03/2019 10:27 AM PDT) + + | Specimen | + + | | + + + + + | Impressions | Performed At | + + + | IMPRESSION: Fluoroscopic service for procedure. Signed | [facility] | | by: Shady Wesley, Contreras Sign Date/Time: 08/03/2019 11:01 AM | | + + + + + + | Narrative | Performed At | + + + | FLUOROSCOPY C ARM CLINICAL INFORMATION: Laminotomy Thoracic | [facility] | | Spinal cord stimulator T9/10 FINDINGS: Fluoro Time: .17 | | | minute(s). Number of images: 1 Air Kerma: 1.80 mGy Surgical | | | hardware overlying the spine. | | + + + + + | Procedure Note | + + | Reji Pacheco Results In - 08/03/2019 11:05 AM PDT | | FLUOROSCOPY C ARM | | | | CLINICAL INFORMATION: | | Laminotomy Thoracic Spinal cord stimulator T9/10 | | | | FINDINGS: | | Fluoro Time: .17 minute(s). Number of images: 1 Air Kerma: 1.80 mGy | | | | Surgical hardware overlying the spine. | | | | IMPRESSION: | | IMPRESSION: | | Fluoroscopic service for procedure. | | | | | | | | Signed by: Shady Wesley, Contreras | | Sign Date/Time: 08/03/2019 11:01 AM | + + + +---------+ + + | Performing | Address | City/State/Zipcode | Phone Number | | Organization | | | | + +---------+ + + | [facility] | | | | + +---------+ + + POC Glucose (08/03/2019 10:06 AM PDT) + + + + + + | Component | Value | Ref Range | Performed | Pathologist | | | | | At | Signature | + + + + + + | Glucose, | 139 (H)Comment: Testing | 65 - 99 mg/dL | [facility] | | | POC | performed at [facility];[address] | | LABORATORY | | | | [address];[place] | | | | | | [address] | | | | + + + + + + + + | Specimen | + + | | + + + + + + + | Performing | Address | City/State/Zipcode | Phone Number | | Organization | | | | + + + + + | [facility] | [address] | [place] [address] | [phone] | + + + + + POC Glucose (08/03/2019 9:14 AM PDT) + + + + + + | Component | Value | Ref Range | Performed | Pathologist | | | | | At | Signature | + + + + + + | Glucose, | 80Comment: Testing | 65 - 99 mg/dL | [facility] | | | POC | performed at [facility];[address] | | LAB[address]AT[address] | | | | [address];[place] | | | | | | [address] | | | | + + + + + + + + | Specimen | + + | | + + + + + + + | Performing | Address | City/State/Zipcode | Phone Number | | Organization | | | | + + + + + | [facility] | [address] | [place] [address] | [phone] | + + + + + Type and Screen (08/03/2019 7:46 AM PDT) + + + + + + | Component | Value | Ref Range | Performed | Pathologist | | | | | At | Signature | + + + + + + | ABO Rh | B POSITIVE | | [facility] | | | | | | LABORATORY | | + + + + + + | Antibody | NEGATIVE | | [facility] | | | Screen | | | LABORATORY | | + + + + + + | BB BAND | [id number] | | [facility] | | | | | | LABORATORY | | + + + + + + | BB BAND | Testing performed at | | [facility] | | | | [facility];[address] | | LABORATORY | | | | [address];[place] [address] | | | | + + + + + + + + | Specimen | + + | Blood | + + + + + + + | Performing | Address | City/State/Zipcode | Phone Number | | Organization | | | | + + + + + | [facility] | [address] | [place] [address] | [phone] | + + + + + POC Glucose (08/03/2019 7:23 AM PDT) + + + + + + | Component | Value | Ref Range | Performed | Pathologist | | | | | At | Signature | + + + + + + | Glucose, | 77Comment: Testing | 65 - 99 mg/dL | [facility] | | | POC | performed at [facility];[address] | | LABORATORY | | | | [address];[place], [place] | | | | | | [address] | | | | + + + + + + + + | Specimen | + + | | + + + + + + + | Performing | Address | City/State/Zipcode | Phone Number | | Organization | | | | + + + + + | [facility] | [address] | [place] [address] | [phone] | + + + + + documented in this encounter Visit Diagnoses + + | Diagnosis | + + | Postlaminectomy syndrome, thoracic region | + + | Radiculopathy of thoracolumbar region Thoracic or lumbosacral neuritis or | | radiculitis, unspecified | + + documented in this encounter Administered Medications + +---------+ +------+------+------+ | Medication Order | MAR | Action | Dose | Rate | Site | | | Action | Date | | | | + +---------+ +------+------+------+ | balanced electrolytes in water | New Bag | 08/03/20 | | | | | (PLASMALYTE-148/NORMOSOL-R) | | 19 9:31 | | | | | infusion at 50 mL/hr, | | AM PDT | | | | | Intravenous, CONTINUOUS, Starting | | | | | | | 08/03/19 at 0745, Pre-op | | | | | | + +---------+ +------+------+------+ +---------+ +---+ +---+ | New Bag | 08/03/20 | | 50 mL/hr | | | | 19 7:53 | | | | | | AM PDT | | | | +---------+ +---+ +---+ + +---+ | | | + +---+ | docusate sodium (COLACE) | | | capsule 100 mg 100 mg, Oral, 2 | | | TIMES DAILY PRN, Constipation, | | | Starting 08/03/19 at 1915, | | | First line agent for | | | constipation, Post-op/Phase II | | + +---+ | | | + +---+ + +-------+ + +---+---+ | HYDROcodone-acetaminophen | Given | 08/04/20 | 1 tablet | | | | (NORCO) 10-325 mg per tablet 1 | | 19 1:37 | | | | | tablet 1 tablet, Oral, EVERY 4 | | PM PDT | | | | | HOURS PRN, Pain, Starting Fri | | | | | | | 08/03/19 at 1755 | | | | | | + +-------+ + +---+---+ +-------+ + +---+---+ | Given | 08/04/20 | 1 tablet | | | | | 19 9:24 | | | | | | AM PDT | | | | +-------+ + +---+---+ | Given | 08/04/20 | 1 tablet | | | | | 19 5:02 | | | | | | AM PDT | | | | +-------+ + +---+---+ +---+---+ | | | +---+---+ + +-------+ +--------+---+---+ | HYDROmorphone (DILAUDID) | Given | 08/03/20 | 0.2 mg | | | | injection 0.2-0.4 mg 0.2-0.4 mg, | | 19 5:00 | | | | | Intravenous, EVERY 1 HOUR PRN, | | PM PDT | | | | | Pain, Starting Tue08/03/19 at | | | | | | | 1333, If oral route not an | | | | | | | option. Slow IV push, not faster | | | | | | | than 0.3mg/minute. First dose | | | | | | | must be lowest dose, titrate to | | | | | | | effective dose by repeat of | | | | | | | lowest dose every 30 minutes prn | | | | | | | pain, may not exceed maximum dose | | | | | | | ordered per interval. Use | | | | | | | Pasero Sedation Scale., | | | | | | | Post-op/Phase II | | | | | | + +-------+ +--------+---+---+ + +---+ | | | + +---+ | methocarbamol (ROBAXIN) tablet | | | 1,500 mg 1,500 mg, Oral, EVERY 6 | | | HOURS PRN, Muscle spasms, | | | Starting Tue08/03/19 at 1915, | | | First line agent, Post-op/Phase | | | II | | + +---+ | | | + +---+ | ondansetron (ZOFRAN ODT) | | | disintegrating tablet 4 mg 4 mg, | | | Oral, EVERY 6 HOURS PRN, Nausea, | | | Vomiting, Starting Tue08/03/19 | | | at 1915, First line agent, | | | Post-op/Phase II | | + +---+ | | | + +---+ | rOPINIRole (REQUIP) tablet 4 mg | | | 4 mg, Oral, 4 TIMES DAILY PRN, | | | Restless Legs, Starting Tue | | | 08/03/19 at 2104 | | + +---+ | | | + +---+ | senna (SENOKOT) tablet 8.6 mg | | | 8.6 mg, Oral, 2 TIMES DAILY PRN, | | | Constipation, Starting Fri | | | 08/03/19 at 1915, If docusate | | | ineffective or not ordered, | | | Post-op/Phase II | | + +---+ | | | + +---+ + +---------+ +---------+-------+---+ | sodium chloride 0.45% (1/2 NS) | New Bag | 08/03/20 | 950 mLs | 100 | | | infusion at 100 mL/hr, | | 19 1:42 | | mL/hr | | | Intravenous, CONTINUOUS, Starting | | PM PDT | | | | | 08/03/19 at 1400, | | | | | | | Post-op/Phase II | | | | | | + +---------+ +---------+-------+---+ +---+---+ | | | +---+---+ + +---------+ +---+-------+---+ | sodium chloride 0.45% (1/2 NS) | New Bag | 08/04/20 | | 100 | | | infusion at 100 mL/hr, | | 19 12:57 | | mL/hr | | | Intravenous, CONTINUOUS, Starting | | AM PDT | | | | | 08/03/19 at 1945, | | | | | | | Post-op/Phase II | | | | | | + +---------+ +---+-------+---+ + + +---+-------+---+ | Continued Bag | 08/03/20 | | 100 | | | | 19 8:48 | | mL/hr | | | | PM PDT | | | | + + +---+-------+---+ +---+---+ | | | +---+---+ + +-------+ +---+---+---+ | sodium chloride for irrigation | Given | 08/03/20 | | | | | 0.9% 500 mL with bacitracin | | 19 10:07 | | | | | 50,000 units/10 mL 50,000 Units | | AM PDT | | | | | optesia mixture PRN, Starting | | | | | | | [facility] 08/03/19 at 1007, Intra-op | | | | | | + +-------+ +---+---+---+ +---+---+ | | | +---+---+ + +-------+ +--------+---+---+ | thrombin (recombinant) | Given | 08/03/20 | 5,000 | | | | (RECOTHROM) solution PRN, | | 19 10:06 | Units | | | | Starting 08/03/19 at 1006, | | AM PDT | | | | | Intra-op | | | | | | + +-------+ +--------+---+---+ +---+---+ | | | +---+---+ documented in this encounter
--- OUTSIDE RECORDS SUMMARY | ~2019-09-28 | XMS | Encounter Summary ---
Demographics + + + | Address | [address] | | | [place] [address] | + + + | Home Phone | | + + + | Preferred Language | Unknown | + + + | Marital Status | Single | + + + | Adventist Affiliation | NON | + + + | Race | White | + + + | Ethnic Group | Not or | + + + Author + + + | Author | [facility] | + + + | Organization | [facility] | + + + | Address | Unknown | + + + | Phone | Unavailable | + + + Support + + +---------+ + | Name | Relationship | Address | Phone | + + +---------+ + | Royce Menchaca | ECON | Unknown | | + + +---------+ + Care Team Providers + +------+ + | Care Claim Representative Name | Role | Phone | + +------+ + | Oxana Nye | PCP | | + +------+ + Encounter Details +--------+ + + + + | Date | Type | Department | Care Team | Description | +--------+ + + + + | 06/26/ | Hospital | Registration [address] | Julius, | | | 2005 | Activity | [facility] | MD [address] | | | | | Eris Mailcode: [id number] | [address] | | | | | [place], [place] | [place], [place] | | | | | [address] | [address] | | | | | [phone] | [phone] | | | | | | | [...] as of this encounter Plan of Treatment + +------+--------+ + + | Name | Type | Priori | Associated Diagnoses | Date/Time | | | | ty | | | + +------+--------+ + + | CULT, URINE BACTI | Lab | Routin | | 06/27/2006 4:15 AM | | | | e | | PDT | + +------+--------+ + + | CULT, BLOOD BACTI & | Lab | Routin | | 06/27/2006 4:00 AM | | [facility] | | e | | PDT | + +------+--------+ + + | CULT, BLOOD BACTI & | Lab | Routin | | 06/27/2006 4:15 AM | | [facility] | | e | | PDT | + +------+--------+ + + | HEPATITIS B SURFACE | Lab | Routin | | 06/27/2006 4:00 AM | | AG | | e | | PDT | + +------+--------+ + + | HEPATITIS C AB | Lab | Routin | | 06/27/2006 4:00 AM | | | | e | | PDT | + +------+--------+ + + | HEPATITIS B SURFACE | Lab | Routin | | 06/27/2006 4:00 AM | | AB | | e | | PDT | + +------+--------+ + + | CULT, URINE BACTI | Lab | Routin | | 06/27/2006 11:55 AM | | | | e | | PDT | + +------+--------+ + + | COMP METABOLIC SET | Lab | Urgent | | 06/27/2006 5:40 PM | | | | | | PDT | + +------+--------+ + + | MAGNESIUM, PLASMA | Lab | Urgent | | 06/27/2006 5:40 PM | | | | | | PDT | + +------+--------+ + + | PHOSPHORUS, PLASMA | Lab | Urgent | | 06/27/2006 5:40 PM | | | | | | PDT | + +------+--------+ + + documented as of this encounter Procedures + +--------+ + + + | Procedure Name | Priori | Date/Time | Associated Diagnosis | Comments | | | ty | | | | + +--------+ + + + | TOTAL RESULTS | Routin | 06/30/2006 | | Results for this | | FOR,URINE | e | 8:30 AM | | procedure are in the | | | | PDT | | results section. | + +--------+ + + + | POTASSIUM TOTAL, | Routin | 06/30/2006 | | Results for this | | URINE | e | 8:30 AM | | procedure are in the | | | | PDT | | results section. | + +--------+ + + + | OSMOLALITY, URINE | Routin | 06/30/2006 | | Results for this | | SPOT | e | 8:30 AM | | procedure are in the | | | | PDT | | results section. | + +--------+ + + + | CREATININE, URINE | Routin | 06/30/2006 | | Results for this | | | e | 8:30 AM | | procedure are in the | | | | PDT | | results section. | + +--------+ + + + | LIVER SET | Routin | 06/30/2006 | | Results for this | | (AST,ALT,BILI | e | 7:00 AM | | procedure are in the | | TOTAL,BILI | | PDT | | results section. | | DIRECT,ALK | | | | | | PHOS,ALB,PROT TOTAL) | | | | | + +--------+ + + + | BASIC METABOLIC SET | Routin | 06/30/2006 | | Results for this | | (NA, K, CL, TCO2, | e | 7:00 AM | | procedure are in the | | BUN, CR, GLU, CA) | | PDT | | results section. | + +--------+ + + + | PHOSPHORUS, PLASMA | Routin | 06/30/2006 | | Results for this | | | e | 7:00 AM | | procedure are in the | | | | PDT | | results section. | + +--------+ + + + | MAGNESIUM, PLASMA | Routin | 06/30/2006 | | Results for this | | | e | 7:00 AM | | procedure are in the | | | | PDT | | results section. | + +--------+ + + + | TOTAL RESULTS | Routin | 06/30/2006 | | Results for this | | FOR,URINE | e | 4:45 AM | | procedure are in the | | | | PDT | | results section. | + +--------+ + + + | POTASSIUM TOTAL, | Routin | 06/30/2006 | | Results for this | | URINE | e | 4:45 AM | | procedure are in the | | | | PDT | | results section. | + +--------+ + + + | OSMOLALITY, URINE | Routin | 06/30/2006 | | Results for this | | SPOT | e | 4:45 AM | | procedure are in the | | | | PDT | | results section. | + +--------+ + + + | PHOSPHORUS QUANT, | Routin | 06/30/2006 | | Results for this | | URINE | e | 4:45 AM | | procedure are in the | | | | PDT | | results section. | + +--------+ + + + | CREATININE, URINE | Routin | 06/30/2006 | | Results for this | | | e | 4:45 AM | | procedure are in the | | | | PDT | | results section. | + +--------+ + + + | BLOOD GASES, | Urgent | 06/29/2006 | | Results for this | | ARTERIAL - LAB | | 8:10 PM | | procedure are in the | | | | PDT | | results section. | + +--------+ + + + | POTASSIUM, WHOLE | Routin | 06/29/2006 | | Results for this | | BLOOD | e | 5:45 PM | | procedure are in the | | | | PDT | | results section. | + +--------+ + + + | VITAMIN D, | Routin | 06/29/2006 | | Results for this | | 25-HYDROXY, SERUM | e | 5:45 PM | | procedure are in the | | | | PDT | | results section. | + +--------+ + + + | VITAMIN | Routin | 06/29/2006 | | Results for this | | D,1,25-DIHYDROXY, | e | 5:45 PM | | procedure are in the | | SERUM | | PDT | | results section. | + +--------+ + + + | POTASSIUM, PLASMA | Routin | 06/29/2006 | | Results for this | | | e | 5:45 PM | | procedure are in the | | | | PDT | | results section. | + +--------+ + + + | PHOSPHORUS, PLASMA | Routin | 06/29/2006 | | Results for this | | | e | 5:45 PM | | procedure are in the | | | | PDT | | results section. | + +--------+ + + + | JAIME OATES ONLY | Routin | 06/29/2006 | | Results for this | | | e | 9:00 AM | | procedure are in the | | | | PDT | | results section. | + +--------+ + + + | URINE, MICROSCOPIC | Routin | 06/29/2006 | | Results for this | | EXAM | e | 9:00 AM | | procedure are in the | | | | PDT | | results section. | + +--------+ + + + | URINE SCREEN FOR | Routin | 06/29/2006 | | Results for this | | CULTURE | e | 9:00 AM | | procedure are in the | | | | PDT | | results section. | + +--------+ + + + | CULTURE, URINE BACTI | Routin | 06/29/2006 | | Results for this | | | e | 9:00 AM | | procedure are in the | | | | PDT | | results section. | + +--------+ + + + | LIVER SET | Routin | 06/29/2006 | | Results for this | | (AST,ALT,BILI | e | 6:55 AM | | procedure are in the | | TOTAL,BILI | | PDT | | results section. | | DIRECT,ALK | | | | | | PHOS,ALB,PROT TOTAL) | | | | | + +--------+ + + + | BASIC METABOLIC SET | Routin | 06/29/2006 | | Results for this | | (NA, K, CL, TCO2, | e | 6:55 AM | | procedure are in the | | BUN, CR, GLU, CA) | | PDT | | results section. | + +--------+ + + + | CBC ONLY | Routin | 06/29/2006 | | Results for this | | | e | 6:55 AM | | procedure are in the | | | | PDT | | results section. | + +--------+ + + + | PHOSPHORUS, PLASMA | Routin | 06/29/2006 | | Results for this | | | e | 6:55 AM | | procedure are in the | | | | PDT | | results section. | + +--------+ + + + | MAGNESIUM, PLASMA | Routin | 06/29/2006 | | Results for this | | | e | 6:55 AM | | procedure are in the | | | | PDT | | results section. | + +--------+ + + + | BASIC METABOLIC SET | Routin | 06/28/2006 | | Results for this | | (NA, K, CL, TCO2, | e | 7:40 PM | | procedure are in the | | BUN, CR, GLU, CA) | | PDT | | results section. | + +--------+ + + + | PHOSPHORUS, PLASMA | Routin | 06/28/2006 | | Results for this | | | e | 7:40 PM | | procedure are in the | | | | PDT | | results section. | + +--------+ + + + | MAGNESIUM, PLASMA | Routin | 06/28/2006 | | Results for this | | | e | 7:40 PM | | procedure are in the | | | | PDT | | results section. | + +--------+ + + + | INR | Routin | 06/28/2006 | | Results for this | | | e | 6:20 AM | | procedure are in the | | | | PDT | | results section. | + +--------+ + + + | COMPLETE METABOLIC | Routin | 06/28/2006 | | Results for this | | SET | e | 6:20 AM | | procedure are in the | | (NA,K,CL,CO2,BUN,CRE | | PDT | | results section. | | AT,GLUC,CA,AST,ALT,B | | | | | | ILIANA TOTAL,ALK | | | | | | PHOS,ALB,PROT TOTAL) | | | | | + +--------+ + + + | CBC ONLY | Routin | 06/28/2006 | | Results for this | | | e | 6:20 AM | | procedure are in the | | | | PDT | | results section. | + +--------+ + + + | PHOSPHORUS, PLASMA | Routin | 06/28/2006 | | Results for this | | | e | 6:20 AM | | procedure are in the | | | | PDT | | results section. | + +--------+ + + + | MAGNESIUM, PLASMA | Routin | 06/28/2006 | | Results for this | | | e | 6:20 AM | | procedure are in the | | | | PDT | | results section. | + +--------+ + + + | INR | Urgent | 06/27/2006 | | Results for this | | | | 5:40 PM | | procedure are in the | | | | PDT | | results section. | + +--------+ + + + | COMPLETE METABOLIC | Urgent | 06/27/2006 | | Results for this | | SET | | 5:40 PM | | procedure are in the | | (NA,K,CL,CO2,BUN,CRE | | PDT | | results section. | | AT,GLUC,CA,AST,ALT,B | | | | | | ILIANA TOTAL,ALK | | | | | | PHOS,ALB,PROT TOTAL) | | | | | + +--------+ + + + | PHOSPHORUS, PLASMA | Urgent | 06/27/2006 | | Results for this | | | | 5:40 PM | | procedure are in the | | | | PDT | | results section. | + +--------+ + + + | MAGNESIUM, PLASMA | Urgent | 06/27/2006 | | Results for this | | | | 5:40 PM | | procedure are in the | | | | PDT | | results section. | + +--------+ + + + | IOD-ORGANIC BASE | Routin | 06/27/2006 | | Results for this | | CONFIRM | e | 11:55 AM | | procedure are in the | | | | PDT | | results section. | + +--------+ + + + | OPIATE CONFIRM FOR | Routin | 06/27/2006 | | Results for this | | POC USE ONLY | e | 11:55 AM | | procedure are in the | | | | PDT | | results section. | + +--------+ + + + | INR | Urgent | 06/27/2006 | | Results for this | | | | 11:55 AM | | procedure are in the | | | | PDT | | results section. | + +--------+ + + + | DRUG SCREEN PROFILE | Routin | 06/27/2006 | | Results for this | | 5, URINE | e | 11:55 AM | | procedure are in the | | | | PDT | | results section. | + +--------+ + + + | COMPLETE METABOLIC | Urgent | 06/27/2006 | | Results for this | | SET | | 11:55 AM | | procedure are in the | | (NA,K,CL,CO2,BUN,CRE | | PDT | | results section. | | AT,GLUC,CA,AST,ALT,B | | | | | | ILIANA TOTAL,ALK | | | | | | PHOS,ALB,PROT TOTAL) | | | | | + +--------+ + + + | UA, DIPSTICK ONLY | Urgent | 06/27/2006 | | Results for this | | | | 11:55 AM | | procedure are in the | | | | PDT | | results section. | + +--------+ + + + | URINE, MICROSCOPIC | Urgent | 06/27/2006 | | Results for this | | EXAM | | 11:55 AM | | procedure are in the | | | | PDT | | results section. | + +--------+ + + + | CULTURE, URINE BACTI | Routin | 06/27/2006 | | Results for this | | | e | 11:55 AM | | procedure are in the | | | | PDT | | results section. | + +--------+ + + + | PHOSPHORUS, PLASMA | Urgent | 06/27/2006 | | Results for this | | | | 11:55 AM | | procedure are in the | | | | PDT | | results section. | + +--------+ + + + | TSH | Routin | 06/27/2006 | | Results for this | | | e | 11:55 AM | | procedure are in the | | | | PDT | | results section. | + +--------+ + + + | MAGNESIUM, PLASMA | Urgent | 06/27/2006 | | Results for this | | | | 11:55 AM | | procedure are in the | | | | PDT | | results section. | + +--------+ + + + | PHOSPHORUS, PLASMA | Urgent | 06/27/2006 | | Results for this | | | | 6:45 AM | | procedure are in the | | | | PDT | | results section. | + +--------+ + + + | CULTURE, BLOOD BACTI | Routin | 06/27/2006 | | Results for this | | & YEAST | e | 4:15 AM | | procedure are in the | | | | PDT | | results section. | + +--------+ + + + | CULTURE, URINE BACTI | Routin | 06/27/2006 | | Results for this | | | e | 4:15 AM | | procedure are in the | | | | PDT | | results section. | + +--------+ + + + | BLOOD GASES, | Routin | 06/27/2006 | | Results for this | | ARTERIAL - LAB | e | 4:15 AM | | procedure are in the | | | | PDT | | results section. | + +--------+ + + + | INR | Urgent | 06/27/2006 | | Results for this | | | | 4:00 AM | | procedure are in the | | | | PDT | | results section. | + +--------+ + + + | COMPLETE METABOLIC | Urgent | 06/27/2006 | | Results for this | | SET | | 4:00 AM | | procedure are in the | | (NA,K,CL,CO2,BUN,CRE | | PDT | | results section. | | AT,GLUC,CA,AST,ALT,B | | | | | | ILIANA TOTAL,ALK | | | | | | PHOS,ALB,PROT TOTAL) | | | | | + +--------+ + + + | CBC ONLY | Urgent | 06/27/2006 | | Results for this | | | | 4:00 AM | | procedure are in the | | | | PDT | | results section. | + +--------+ + + + | CULTURE, BLOOD BACTI | Routin | 06/27/2006 | | Results for this | | & YEAST | e | 4:00 AM | | procedure are in the | | | | PDT | | results section. | + +--------+ + + + | ACETAMINOPHEN, | Routin | 06/27/2006 | | Results for this | | PLASMA | e | 4:00 AM | | procedure are in the | | | | PDT | | results section. | + +--------+ + + + | PHOSPHORUS, PLASMA | Urgent | 06/27/2006 | | Results for this | | | | 4:00 AM | | procedure are in the | | | | PDT | | results section. | + +--------+ + + + | HEPATITIS B SURFACE | Routin | 06/27/2006 | | Results for this | | AB QUAL, SERUM | e | 4:00 AM | | procedure are in the | | | | PDT | | results section. | + +--------+ + + + | HEPATITIS B SURFACE | Routin | 06/27/2006 | | Results for this | | AG, SERUM | e | 4:00 AM | | procedure are in the | | | | PDT | | results section. | + +--------+ + + + | HEPATITIS C VIRUS | Routin | 06/27/2006 | | Results for this | | W/CONFIRMATION | e | 4:00 AM | | procedure are in the | | | | PDT | | results section. | + +--------+ + + + | MAGNESIUM, PLASMA | Urgent | 06/27/2006 | | Results for this | | | | 4:00 AM | | procedure are in the | | | | PDT | | results section. | + +--------+ + + + | BLOOD GASES, | Urgent | 06/26/2006 | | Results for this | | ARTERIAL - LAB | | 10:20 PM | | procedure are in the | | | | PDT | | results section. | + +--------+ + + + | CBC ONLY | Urgent | 06/26/2006 | | Results for this | | | | 9:00 PM | | procedure are in the | | | | PDT | | results section. | + +--------+ + + + | X-RAY CHEST 1 VIEW | Urgent | 06/26/2006 | | Results for this | | | | 4:37 PM | | procedure are in the | | | | PDT | | results section. | + +--------+ + + + | BLOOD GASES, | Urgent | 06/26/2006 | | Results for this | | ARTERIAL - LAB | | 4:30 PM | | procedure are in the | | | | PDT | | results section. | + +--------+ + + + | DIFFERENTIAL | Urgent | 06/26/2006 | | Results for this | | | | 4:15 PM | | procedure are in the | | | | PDT | | results section. | + +--------+ + + + | INR | Urgent | 06/26/2006 | | Results for this | | | | 4:15 PM | | procedure are in the | | | | PDT | | results section. | + +--------+ + + + | CBC, WITH | Urgent | 06/26/2006 | | Results for this | | DIFFERENTIAL | | 4:15 PM | | procedure are in the | | | | PDT | | results section. | + +--------+ + + + | LIVER SET | Urgent | 06/26/2006 | | Results for this | | (AST,ALT,BILI | | 4:15 PM | | procedure are in the | | TOTAL,BILI | | PDT | | results section. | | DIRECT,ALK | | | | | | PHOS,ALB,PROT TOTAL) | | | | | + +--------+ + + + | BASIC METABOLIC SET | Urgent | 06/26/2006 | | Results for this | | (NA, K, CL, TCO2, | | 4:15 PM | | procedure are in the | | BUN, CR, GLU, CA) | | PDT | | results section. | + +--------+ + + + | FACTOR V ACTIVITY, | Routin | 06/26/2006 | | Results for this | | PLASMA | e | 4:15 PM | | procedure are in the | | | | PDT | | results section. | + +--------+ + + + | APTT (ACT. PART. | Urgent | 06/26/2006 | | Results for this | | THROMBO TIME) | | 4:15 PM | | procedure are in the | | | | PDT | | results section. | + +--------+ + + + | TYPE AND SCREEN | Routin | 06/26/2006 | | Results for this | | | e | 4:15 PM | | procedure are in the | | | | PDT | | results section. | + +--------+ + + + | ACETAMINOPHEN, | Urgent | 06/26/2006 | | Results for this | | PLASMA | | 4:15 PM | | procedure are in the | | | | PDT | | results section. | + +--------+ + + + | PHOSPHORUS, PLASMA | Urgent | 06/26/2006 | | Results for this | | | | 4:15 PM | | procedure are in the | | | | PDT | | results section. | + +--------+ + + + | ETHANOL (ALCOHOL), | Urgent | 06/26/2006 | | Results for this | | BLOOD | | 4:15 PM | | procedure are in the | | | | PDT | | results section. | + +--------+ + + + | SALICYLATE, PLASMA | Urgent | 06/26/2006 | | Results for this | | | | 4:15 PM | | procedure are in the | | | | PDT | | results section. | + +--------+ + + + | MAGNESIUM, PLASMA | Urgent | 06/26/2006 | | Results for this | | | | 4:15 PM | | procedure are in the | | | | PDT | | results section. | + +--------+ + + + documented in this encounter Results TOTAL RESULTS FOR,URINE (06/30/2006 8:30 AM PDT) + + + + + + | Component | Value | Ref Range | Performed | Pathologist | | | | | At | Signature | + + + + + + | COLLECTION | RandomComment: | hr | [facility] | | | INTERVAL, | Normal values based on | | DEPARTMENT | | | UR | 24 Hrs. collection | | OF | | | | interval. Patient | | PATHOLOGY | | | | results are | | | | | | calculated from actual | | | | | | collection interval | | | | | | andvolume. | | | | + + + + + + | URINE | Spot | mL | [facility] | | | VOLUME - | | | DEPARTMENT | | | [facility] | | | OF | | | | | | PATHOLOGY | | + + + + + + + + | Specimen | + + | | + + + + + | Narrative | Performed At | + + + | Urine Chemistry Master | [facility] | | | DEPARTMENT OF | | | PATHOLOGY | + + + + + + + + | Performing | Address | City/State/Zipcode | Phone Number | | Organization | | | | + + + + + | [facility] | [address] | [place] [address] | | | PATHOLOGY | [address] | | | + + + + + | [facility] | [facility] | [place] [address] | | | PATHOLOGY | [address] | | | + + + + + POTASSIUM TOTAL, URINE (06/30/2006 8:30 AM PDT) + +-------+ + + + | Component | Value | Ref Range | Performed | Pathologist | | | | | At | Signature | + +-------+ + + + | POTASSIUM | 59 | mmol/L | [facility] | | | CONC UR | | | DEPARTMENT | | | | | | OF | | | | | | PATHOLOGY | | + +-------+ + + + + + | Specimen | + + | | + + + + + | Narrative | Performed At | + + + | Urine Chemistry Master | [facility] | | | DEPARTMENT OF | | | PATHOLOGY | + + + + + + + + | Performing | Address | City/State/Zipcode | Phone Number | | Organization | | | | + + + + + | [facility] | [address] | [place] [address] | | | PATHOLOGY | [address] | | | + + + + + | [facility] | [address] | [place] [address] | | | PATHOLOGY | [address] | | | + + + + + OSMOLALITY, URINE SPOT (06/30/2006 8:30 AM PDT) + + + + + + | Component | Value | Ref Range | Performed | Pathologist | | | | | At | Signature | + + + + + + | OSMOLALITY | 561Comment: Reference | mOsm/Kg H2O | [facility] | | | URINE | Ranges: 50-1200 mOsm/kg | | DEPARTMENT | | | | H2O Random Urine | | OF | | | | 300-900 mOsm/kg H2O | | PATHOLOGY | | | | 24 Hr., average fluid | | | | | | intake >850 mOsm/kg | | | | | | H2O After 12 Hr. | | | | | | fluid restriction | | | | + + + + + + + + | Specimen | + + | | + + + + + + + | Performing | Address | City/State/Zipcode | Phone Number | | Organization | | | | + + + + + | [facility] | [address] | [place] [address] | | | PATHOLOGY | [address] | | | + + + + + | [facility] | [address] | [place] [address] | | | PATHOLOGY | [address] | | | + + + + + CREATININE, URINE (06/30/2006 8:30 AM PDT) + +-------+ + + + | Component | Value | Ref Range | Performed | Pathologist | | | | | At | Signature | + +-------+ + + + | CREATININE | 92.9 | mg/dL | [facility] | | | CONC UR | | | DEPARTMENT | | | | | | OF | | | | | | PATHOLOGY | | + +-------+ + + + + + | Specimen | + + | | + + + + + | Narrative | Performed At | + + + | Urine Chemistry Master | [facility] | | | DEPARTMENT OF | | | PATHOLOGY | + + + + + + + + | Performing | Address | City/State/Zipcode | Phone Number | | Organization | | | | + + + + + | [facility]MENT [facility] | [address] | [place] [address] | | | PATHOLOGY | [address] | | | + + + + + | [facility]MENT [facility] | [address] | [place] [address] | | | PATHOLOGY | [address] | | | + + + + + LIVER SET (06/30/2006 7:00 AM PDT) + +---------+ + + + | Component | Value | Ref Range | Performed | Pathologist | | | | | At | Signature | + +---------+ + + + | ALBUMIN, | 3.4 (L) | 3.5 - 4.7 g/dL | [facility] | | | PLASMA | | | DEPARTMENT | | | (LAB) | | | OF | | | | | | PATHOLOGY | | + +---------+ + + + | BILIRUBIN | 0.3 | 0.3 - 1.2 mg/dL | [facility] | | | TOTAL | | | DEPARTMENT | | | | | | OF | | | | | | PATHOLOGY | | + +---------+ + + + | BILIRUBIN | 0.1 | <0.4 mg/dL | [facility] | | | DIRECT | | | DEPARTMENT | | | | | | OF | | | | | | PATHOLOGY | | + +---------+ + + + | ALK PHOS | 55 | 42 - 98 U/L | [facility] | | | | | | DEPARTMENT | | | | | | OF | | | | | | PATHOLOGY | | + +---------+ + + + | AST(SGOT) | 19 | 15 - 41 U/L | [facility] | | | | | | DEPARTMENT | | | | | | OF | | | | | | PATHOLOGY | | + +---------+ + + + | ALT (SGPT) | 47 | 13 - 48 U/L | [facility] | | | | | | DEPARTMENT | | | | | | OF | | | | | | PATHOLOGY | | + +---------+ + + + | TOTAL | 6.0 (L) | 6.1 - 7.9 g/dL | [facility] | | | PROTEIN, | | | DEPARTMENT | | | PLASMA | | | OF | | | (LAB) | | | PATHOLOGY | | + +---------+ + + + + + | Specimen | + + | | + + + + + + + | Performing | Address | City/State/Zipcode | Phone Number | | Organization | | | | + + + + + | [facility] | [address] | [place] [address] | | | PATHOLOGY | [address] | | | + + + + + | [facility] | [address] | [place] [address] | | | PATHOLOGY | [address] | | | + + + + + MAGNESIUM, PLASMA (06/30/2006 7:00 AM PDT) + +-------+ + + + | Component | Value | Ref Range | Performed | Pathologist | | | | | At | Signature | + +-------+ + + + | MAGNESIUM,P | 2.3 | 1.8 - 2.5 mg/dL | [facility] | | | LASMA | | | DEPARTMENT | | | | | | OF | | | | | | PATHOLOGY | | + +-------+ + + + + + | Specimen | + + | | + + + + + + + | Performing | Address | City/State/Zipcode | Phone Number | | Organization | | | | + + + + + | [facility] | [address] | [place] [address] | | | PATHOLOGY | [address] | | | + + + + + | [facility] | [facility] | [place] [address] | | | PATHOLOGY | [address] | | | + + + + + PHOSPHORUS, PLASMA (06/30/2006 7:00 AM PDT) + +-------+ + + + | Component | Value | Ref Range | Performed | Pathologist | | | | | At | Signature | + +-------+ + + + | PHOSPHORUS, | 3.8 | 2.4 - 4.7 mg/dL | [facility] | | | PLASMA | | | DEPARTMENT | | | (LAB) | | | OF | | | | | | PATHOLOGY | | + +-------+ + + + + + | Specimen | + + | | + + + + + + + | Performing | Address | City/State/Zipcode | Phone Number | | Organization | | | | + + + + + | [facility] DEPARTMENT OF | [address] | [place] [address] | | | PATHOLOGY | [address] | | | + + + + + | [facility] DEPARTMENT OF | [address] | [place] [address] | | | PATHOLOGY | [address] | | | + + + + + BASIC METABOLIC SET (06/30/2006 7:00 AM PDT) + +-------+ + + + | Component | Value | Ref Range | Performed | Pathologist | | | | | At | Signature | + +-------+ + + + | GLUCOSE, | 91 | 65 - 110 mg/dL | [facility] | | | PLASMA | | | DEPARTMENT | | | (LAB) | | | OF | | | | | | PATHOLOGY | | + +-------+ + + + | BUN, PLASMA | 4 (L) | 6 - 20 mg/dL | [facility] | | | (LAB) | | | DEPARTMENT | | | | | | OF | | | | | | PATHOLOGY | | + +-------+ + + + | CREATININE | 0.7 | 0.6 - 1.1 mg/dL | [facility] | | | PLASMA | | | DEPARTMENT | | | (LAB) | | | OF | | | | | | PATHOLOGY | | + +-------+ + + + | SODIUM, | 137 | 136 - 145 | [facility] | | | PLASMA | | mmol/L | DEPARTMENT | | | (LAB) | | | OF | | | | | | PATHOLOGY | | + +-------+ + + + | POTASSIUM, | 4.0 | 3.5 - 5.1 | [facility] | | | PLASMA | | mmol/L | DEPARTMENT | | | (LAB) | | | OF | | | | | | PATHOLOGY | | + +-------+ + + + | CHLORIDE, | 106 | 98 - 107 mmol/L | [facility] | | | [facility] | | | DEPARTMENT | | | (LAB) | | | OF | | | | | | PATHOLOGY | | + +-------+ + + + | TOTAL CO2, | 27 | 23 - 29 mmol/L | [facility] | | | PLASMA | | | DEPARTMENT | | | (LAB) | | | OF | | | | | | PATHOLOGY | | + +-------+ + + + | CALCIUM, | 9.1 | 8.5 - 10.5 | [facility] | | | PLASMA | | mg/dL | DEPARTMENT | | | (LAB) | | | OF | | | | | | PATHOLOGY | | + +-------+ + + + + + | Specimen | + + | | + + + + + + + | Performing | Address | City/State/Zipcode | Phone Number | | Organization | | | | + + + + + | [facility] DEPARTMENT OF | [address] | [place], [place] [address] | | | PATHOLOGY | [address] | | | + + + + + | [facility] DEPARTMENT OF | [address] | [place] [address] | | | PATHOLOGY | [address] | | | + + + + + CREATININE, URINE (06/30/2006 4:45 AM PDT) + +-------+ + + + | Component | Value | Ref Range | Performed | Pathologist | | | | | At | Signature | + +-------+ + + + | CREATININE | 40.1 | mg/dL | [facility] | | | CONC UR | | | DEPARTMENT | | | | | | OF | | | | | | PATHOLOGY | | + +-------+ + + + + + | Specimen | + + | | + + + + + | Narrative | Performed At | + + + | Urine Chemistry Master | [facility] | | | DEPARTMENT OF | | | PATHOLOGY | + + + + + + + + | Performing | Address | City/State/Zipcode | Phone Number | | Organization | | | | + + + + + | [facility] DEPARTMENT OF | [address] | [place] [address] | | | PATHOLOGY | [address] | | | + + + + + | [facility] | [address] | [place] [address] | | | PATHOLOGY | [address] | | | + + + + + POTASSIUM TOTAL, URINE (06/30/2006 4:45 AM PDT) + +-------+ + + + | Component | Value | Ref Range | Performed | Pathologist | | | | | At | Signature | + +-------+ + + + | POTASSIUM | 17 | mmol/L | [facility] | | | CONC UR | | | DEPARTMENT | | | | | | OF | | | | | | PATHOLOGY | | + +-------+ + + + + + | Specimen | + + | | + + + + + | Narrative | Performed At | + + + | Urine Chemistry Master | [facility] | | | DEPARTMENT OF | | | PATHOLOGY | + + + + + + + + | Performing | Address | City/State/Zipcode | Phone Number | | Organization | | | | + + + + + | [facility] DEPARTMENT OF | [address] | [place] [address] | | | PATHOLOGY | [address] | | | + + + + + | [facility] DEPARTMENT OF | [address] | [place] [address] | | | PATHOLOGY | [address] | | | + + + + + TOTAL RESULTS FOR,URINE (06/30/2006 4:45 AM PDT) + + + + + + | Component | Value | Ref Range | Performed | Pathologist | | | | | At | Signature | + + + + + + | COLLECTION | RandomComment: | hr | [facility] | | | INTERVAL, | Normal values based on | | DEPARTMENT | | | UR | 24 Hrs. collection | | OF | | | | interval. Patient | | PATHOLOGY | | | | results are | | | | | | calculated from actual | | | | | | collection interval | | | | | | andvolume. | | | | + + + + + + | URINE | Spot | mL | [facility] | | | VOLUME - | | | DEPARTMENT | | | UCM | | | OF | | | | | | PATHOLOGY | | + + + + + + + + | Specimen | + + | | + + + + + | Narrative | Performed At | + + + | Urine Chemistry Master | [facility] | | | DEPARTMENT OF | | | PATHOLOGY | + + + + + + + + | Performing | Address | City/State/Zipcode | Phone Number | | Organization | | | | + + + + + | [facility] | [address] | [place] [address] | | | PATHOLOGY | [address] | | | + + + + + | [facility] DEPARTMENT OF | [address] | [place] [address] | | | PATHOLOGY | [address] | | | + + + + + PHOSPHORUS QUANT, URINE (06/30/2006 4:45 AM PDT) + +-------+ + + + | Component | Value | Ref Range | Performed | Pathologist | | | | | At | Signature | + +-------+ + + + | PHOSPHORUS | 28.8 | mg/dL | [facility] | | | CONC UR | | | DEPARTMENT | | | | | | OF | | | | | | PATHOLOGY | | + +-------+ + + + + + | Specimen | + + | | + + + + + | Narrative | Performed At | + + + | Urine Chemistry Master | [facility] | | | DEPARTMENT OF | | | PATHOLOGY | + + + + + + + + | Performing | Address | City/State/Zipcode | Phone Number | | Organization | | | | + + + + + | [facility] | [address] | [place] [address] | | | PATHOLOGY | [address] | | | + + + + + | [facility] | [address] [place] [address] | [place] [address] | | | PATHOLOGY | [address] | | | + + + + + OSMOLALITY, URINE SPOT (06/30/2006 4:45 AM PDT) + + + + + + | Component | Value | Ref Range | Performed | Pathologist | | | | | At | Signature | + + + + + + | OSMOLALITY | 258Comment: Reference | mOsm/Kg H2O | [facility] | | | URINE | Ranges: 50-1200 mOsm/kg | | DEPARTMENT | | | | H2O Random Urine | | OF | | | | 300-900 mOsm/kg H2O | | PATHOLOGY | | | | 24 Hr., average fluid | | | | | | intake >850 mOsm/kg | | | | | | H2O After 12 Hr. | | | | | | fluid restriction | | | | + + + + + + + + | Specimen | + + | | + + + + + + + | Performing | Address | City/State/Zipcode | Phone Number | | Organization | | | | + + + + + | [facility] DEPARTMENT OF | [address] | [place] [address] | | | PATHOLOGY | [address] | | | + + + + + | [facility] DEPARTMENT OF | [address] | [place] [address] | | | PATHOLOGY | [address] | | | + + + + + BLOOD GASES, ARTERIAL (06/29/2006 8:10 PM PDT) + + + + + + | Component | Value | Ref Range | Performed | Pathologist | | | | | At | Signature | + + + + + + | PAT TEMP | 36.9 | Degree C | [facility] | | | ARTERIAL | | | DEPARTMENT | | | | | | OF | | | | | | PATHOLOGY | | + + + + + + | FIO2 | RA | | [facility] | | | ARTERIAL | | | DEPARTMENT | | | | | | OF | | | | | | PATHOLOGY | | + + + + + + | PH ARTERIAL | 7.47 (H) | 7.37 - 7.44 | [facility] | | | | | | DEPARTMENT | | | | | | OF | | | | | | PATHOLOGY | | + + + + + + | PCO2 | 30 (L) | 32 - 43 mmHg | [facility] | | | ARTERIAL | | | DEPARTMENT | | | | | | OF | | | | | | PATHOLOGY | | + + + + + + | PO2 | 93 | 72 - 104 mmHg | [facility] | | | ARTERIAL | | | DEPARTMENT | | | | | | OF | | | | | | PATHOLOGY | | + + + + + + | BASE EXCESS | -0.5 | | [facility] | | | ARTERIAL | | | DEPARTMENT | | | | | | OF | | | | | | PATHOLOGY | | + + + + + + | HCO3 | 22 | 21 - 27 mmol/L | [facility] | | | ARTERIAL | | | DEPARTMENT | | | | | | OF | | | | | | PATHOLOGY | | + + + + + + | TOTAL CO2 | 23 | 22 - 28 mmol/L | [facility] | | | ARTERIAL | | | DEPARTMENT | | | | | | OF | | | | | | PATHOLOGY | | + + + + + + | O2 SAT, | 97.7 | 92.0 - 98.0 % | [facility] | | | ARTERIAL | | | DEPARTMENT | | | | | | OF | | | | | | PATHOLOGY | | + + + + + + + + | Specimen | + + | | + + + + + | Narrative | Performed At | + + + | Arterial Blood Gas | [facility] | | | DEPARTMENT OF | | | PATHOLOGY | + + + + + + + + | Performing | Address | City/State/Zipcode | Phone Number | | Organization | | | | + + + + + | [facility] DEPARTMENT OF | [address] | [place] [address] | | | PATHOLOGY | [address] | | | + + + + + | [facility] DEPARTMENT OF | [address] | [place] [address] | | | PATHOLOGY | [address] | | | + + + + + PHOSPHORUS, PLASMA (06/29/2006 5:45 PM PDT) + +-------+ + + + | Component | Value | Ref Range | Performed | Pathologist | | | | | At | Signature | + +-------+ + + + | PHOSPHORUS, | 3.6 | 2.4 - 4.7 mg/dL | [facility] | | | PLASMA | | | DEPARTMENT | | | (LAB) | | | OF | | | | | | PATHOLOGY | | + +-------+ + + + + + | Specimen | + + | | + + + + + + + | Performing | Address | City/State/Zipcode | Phone Number | | Organization | | | | + + + + + | [facility] DEPARTMENT | [address] | [place] [address] | | | PATHOLOGY | [address] | | | + + + + + | [facility] | [address] | [place] [address] | | | PATHOLOGY | [address] | | | + + + + + VITAMIN D, 25-HYDROXY (06/29/2006 5:45 PM PDT) + + + + + + | Component | Value | Ref Range | Performed | Pathologist | | | | | At | Signature | + + + + + + | VITAMIN D | 38Comment: TEST | ng/mL | | | | 25 HYDROXY | INFORMATION: VITAMIN D, | | | | | | 25-HYDROXYThis assay | | | | | | accurately quantifies | | | | | | the sum of vitamin | | | | | | D3,25-Hydroxy and | | | | | | vitamin D2, 25-Hydroxy. | | | | | | Test performed by [facility] | | | | | | Laboratories. | | | | + + + + + + + + | Specimen | + + | | + + + + + + + | Performing | Address | City/State/Zipcode | Phone Number | | Organization | | | | + + + + + | [facility] | [address] | [place], [place] | | | [facility] | | [address] | | + + + + + POTASSIUM, PLASMA (06/29/2006 5:45 PM PDT) + +---------+ + + + | Component | Value | Ref Range | Performed | Pathologist | | | | | At | Signature | + +---------+ + + + | POTASSIUM, | 3.4 (L) | 3.5 - 5.1 | [facility] | | | PLASMA | | mmol/L | DEPARTMENT | | | (LAB) | | | OF | | | | | | PATHOLOGY | | + +---------+ + + + + + | Specimen | + + | | + + + + + + + | Performing | Address | City/State/Zipcode | Phone Number | | Organization | | | | + + + + + | [facility] | [address] | [place] [address] | | | PATHOLOGY | [address] | | | + + + + + | [facility] | [address] | [place] [address] | | | PATHOLOGY | [address] | | | + + + + + POTASSIUM, WHOLE BLOOD (06/29/2006 5:45 PM PDT) + + + + + + | Component | Value | Ref Range | Performed | Pathologist | | | | | At | Signature | + + + + + + | POTASSIUM,W | See cmnt | 3.5 - 5.1 | [facility] | | | HOLE BLD | | mmol/L | DEPARTMENT | | | | | | OF | | | | | | PATHOLOGY | | + + + + + + + + | Specimen | + + | | + + + + + | Narrative | Performed At | + + + | Erroneous request. | [facility] | | | DEPARTMENT OF | | | PATHOLOGY | + + + + + + + + | Performing | Address | City/State/Zipcode | Phone Number | | Organization | | | | + + + + + | [facility] DEPARTMENT OF | [address] | [place] [address] | | | PATHOLOGY | [address] | | | + + + + + | [facility] | [address] | [place] [address] | | | PATHOLOGY | [address] | | | + + + + + VITAMIN D, 125-DIHYDROXY (06/29/2006 5:45 PM PDT) + + + + + + | Component | Value | Ref Range | Performed | Pathologist | | | | | At | Signature | + + + + + + | VIT D, | 123Comment: Testing | pg/mL | | | | 1,25-DIHYDR | performed by [facility] | | | | | [facility] | Laboratory. | | | | + + + + + + + + | Specimen | + + | | + + + + + + + | Performing | Address | City/State/Zipcode | Phone Number | | Organization | | | | + + + + + | [facility] | [address] | [place], [place] | | | [facility] | | [address] | | + + + + + CULT, URINE BACTI (06/29/2006 9:00 AM PDT) + + + + + + | Component | Value | Ref Range | Performed | Pathologist | | | | | At | Signature | + + + + + + | SOURCE BODY | Clean catch | | | | | SITE | | | | | + + + + + + | CULTURE | Urine Culture | | | | | RESULT | | | | | | | Source...............: | | | | | | Clean catch | | | | | | Culture: > | | | | | | 100,000 col/ml | | | | | | Escherichia coli | | | | | | Final | | | | | | ID | | | | | | | | | | | | Escherichia coli | | | | | | | | | | | | Prelim ID | | | | | | E. | | | | | | coli Ampicillin | | | | | | S Cefazolin | | | | | | S | | | | | | Ciprofloxacin | | | | | | S Gentamicin | | | | | | S Nitrofurantoin | | | | | | S Tobramycin | | | | | | S | | | | | | Trimeth/Sulfa | | | | | | S Final | | | | | | ReportComment: Test | | | | | | performed at [facility] | | | | | | [facility] | | | | | | Laboratory. | | | | + + + + + + + + | Specimen | + + | | + + + + + + + | Performing | Address | City/State/Zipcode | Phone Number | | Organization | | | | + + + + + | [facility] | [address] | [place] [address] | | | LAB-MICRO | | | | + + + + + CULT, URINE SCREEN (06/29/2006 9:00 AM PDT) + + + + + + | Component | Value | Ref Range | Performed | Pathologist | | | | | At | Signature | + + + + + + | CULT, URINE | Positive for Nitrite | | [facility] | | | SCREEN | and/or Leukocyte | | DEPARTMENT | | | | Esterase.Specimen sent | | OF | | | | for culture. | | PATHOLOGY | | + + + + + + + + | Specimen | + + | | + + + + + + + | Performing | Address | City/State/Zipcode | Phone Number | | Organization | | | | + + + + + | [facility] DEPARTMENT OF | [address] | [place] [address] | | | PATHOLOGY | [address] | | | + + + + + | [facility] DEPARTMENT OF | [address] | [place] [address] | | | PATHOLOGY | [address] | | | + + + + + URINE, MICROSCOPIC EXAM (06/29/2006 9:00 AM PDT) + +-------+ + + + | Component | Value | Ref Range | Performed | Pathologist | | | | | At | Signature | + +-------+ + + + | SQUAMOUS | None | /hpf | [facility] | | | EPITHELIAL | | | DEPARTMENT | | | | | | OF | | | | | | PATHOLOGY | | + +-------+ + + + | NON-SQUAMOU | None | /hpf | [facility] | | | S EPITH | | | DEPARTMENT | | | | | | OF | | | | | | PATHOLOGY | | + +-------+ + + + | RED CELLS | 20-30 | 0 - 3 /hpf | [facility] | | | | | | DEPARTMENT | | | | | | OF | | | | | | PATHOLOGY | | + +-------+ + + + | WHITE CELLS | 10-20 | 0 - 5 /hpf | [facility] | | | | | | DEPARTMENT | | | | | | OF | | | | | | PATHOLOGY | | + +-------+ + + + | BACTERIA | Many | /hpf | [facility] | | | | | | DEPARTMENT | | | | | | OF | | | | | | PATHOLOGY | | + +-------+ + + + | MUCOUS | None | /lpf | [facility] | | | | | | DEPARTMENT | | | | | | OF | | | | | | PATHOLOGY | | + +-------+ + + + | HYALINE | None | 0 - 1 /lpf | [facility] | | | CASTS | | | DEPARTMENT | | | | | | OF | | | | | | PATHOLOGY | | + +-------+ + + + | GRANULAR | None | /lpf | [facility] | | | CASTS | | | DEPARTMENT | | | | | | OF | | | | | | PATHOLOGY | | + +-------+ + + + | CELLULAR | None | /lpf | [facility] | | | CASTS | | | DEPARTMENT | | | | | | OF | | | | | | PATHOLOGY | | + +-------+ + + + | AMORPHOUS | None | /hpf | [facility] | | | CRYSTALS | | | DEPARTMENT | | | | | | OF | | | | | | PATHOLOGY | | + +-------+ + + + | CALCIUM | None | /hpf | [facility] | | | OXALATE | | | DEPARTMENT | | | LOIS | | | OF | | | | | | PATHOLOGY | | + +-------+ + + + | URIC ACID | None | /hpf | [facility] | | | CRYSTALS | | | DEPARTMENT | | | | | | OF | | | | | | PATHOLOGY | | + +-------+ + + + | TRIPLE P04 | None | /hpf | [facility] | | | CRYSTALS | | | DEPARTMENT | | | | | | OF | | | | | | PATHOLOGY | | + +-------+ + + + | YEAST (LAB) | None | /hpf | [facility] | | | | | | DEPARTMENT | | | | | | OF | | | | | | PATHOLOGY | | + +-------+ + + + | TRICHOMONAS | None | /hpf | [facility] | | | | | | DEPARTMENT | | | | | | OF | | | | | | PATHOLOGY | | + +-------+ + + + + + | Specimen | + + | | + + + + + | Narrative | Performed At | + + + | MOD WBC CLUMPS PRESENT | [facility] | | | DEPARTMENT OF | | | PATHOLOGY | + + + + + + + + | Performing | Address | City/State/Zipcode | Phone Number | | Organization | | | | + + + + + | [facility] | [address] | [place] [address] | | | PATHOLOGY | [address] | | | + + + + + | [facility] | [address] [place] [address] | [place] [address] | | | PATHOLOGY | [address] | | | + + + + + JAIME OATES (06/29/2006 9:00 AM PDT) + + + + + + | Component | Value | Ref Range | Performed | Pathologist | | | | | At | Signature | + + + + + + | COLOR(UR) | Yellow | | [facility] | | | | | | DEPARTMENT | | | | | | OF | | | | | | PATHOLOGY | | + + + + + + | APPEARANCE | Hazy | | [facility] | | | | | | DEPARTMENT | | | | | | OF | | | | | | PATHOLOGY | | + + + + + + | GLUCOSE(UR) | Negative | mg/dL | [facility] | | | | | | DEPARTMENT | | | | | | OF | | | | | | PATHOLOGY | | + + + + + + | BILIRUBIN | Negative | | [facility] | | | | | | DEPARTMENT | | | | | | OF | | | | | | PATHOLOGY | | + + + + + + | KETONES | Negative | mg/dL | [facility] | | | | | | DEPARTMENT | | | | | | OF | | | | | | PATHOLOGY | | + + + + + + | SPECIFIC | 1.010 | 1.005 - 1.030 | [facility] | | | GRAVITY | | | DEPARTMENT | | | | | | OF | | | | | | PATHOLOGY | | + + + + + + | BLOOD | Large | | [facility] | | | | | | DEPARTMENT | | | | | | OF | | | | | | PATHOLOGY | | + + + + + + | PH(UR) | 5.0 | 5.0 - 8.0 | [facility] | | | | | | DEPARTMENT | | | | | | OF | | | | | | PATHOLOGY | | + + + + + + | PROTEIN(LAB | Negative | mg/dL | [facility] | | | ) | | | DEPARTMENT | | | | | | OF | | | | | | PATHOLOGY | | + + + + + + | UROBILINOGE | 0.2 | 0 - 0.2 MADELYN | [facility] | | | N | | UNITS | DEPARTMENT | | | | | | OF | | | | | | PATHOLOGY | | + + + + + + | NITRITES | Negative | Negative | [facility] | | | | | | DEPARTMENT | | | | | | OF | | | | | | PATHOLOGY | | + + + + + + | LEUKOCYTE | Moderate | Negative | [facility] | | | ESTERASE | | | DEPARTMENT | | | | | | OF | | | | | | PATHOLOGY | | + + + + + + + + | Specimen | + + | | + + + + + | Narrative | Performed At | + + + | MOD WBC CLUMPS PRESENT | [facility] | | | DEPARTMENT OF | | | PATHOLOGY | + + + + + + + + | Performing | Address | City/State/Zipcode | Phone Number | | Organization | | | | + + + + + | [facility] DE[facility]MENT [facility] | [address] | [place] [address] | | | PATHOLOGY | [address] | | | + + + + + | [facility]MENT [facility] | [address] | [place] [address] | | | PATHOLOGY | [address] | | | + + + + + LIVER SET (06/29/2006 6:55 AM PDT) + +---------+ + + + | Component | Value | Ref Range | Performed | Pathologist | | | | | At | Signature | + +---------+ + + + | ALBUMIN, | 3.1 (L) | 3.5 - 4.7 g/dL | [facility] | | | PLASMA | | | DEPARTMENT | | | (LAB) | | | OF | | | | | | PATHOLOGY | | + +---------+ + + + | BILIRUBIN | 0.4 | 0.3 - 1.2 mg/dL | [facility] | | | TOTAL | | | DEPARTMENT | | | | | | OF | | | | | | PATHOLOGY | | + +---------+ + + + | BILIRUBIN | 0.1 | <0.4 mg/dL | [facility] | | | DIRECT | | | DEPARTMENT | | | | | | OF | | | | | | PATHOLOGY | | + +---------+ + + + | ALK PHOS | 58 | 42 - 98 U/L | [facility] | | | | | | DEPARTMENT | | | | | | OF | | | | | | PATHOLOGY | | + +---------+ + + + | AST(SGOT) | 21 | 15 - 41 U/L | [facility] | | | | | | DEPARTMENT | | | | | | OF | | | | | | PATHOLOGY | | + +---------+ + + + | ALT (SGPT) | 57 (H) | 13 - 48 U/L | [facility] | | | | | | DEPARTMENT | | | | | | OF | | | | | | PATHOLOGY | | + +---------+ + + + | TOTAL | 5.8 (L) | 6.1 - 7.9 g/dL | [facility] | | | PROTEIN, | | | DEPARTMENT | | | PLASMA | | | OF | | | (LAB) | | | PATHOLOGY | | + +---------+ + + + + + | Specimen | + + | | + + + + + + + | Performing | Address | City/State/Zipcode | Phone Number | | Organization | | | | + + + + + | [facility] | [facility] | [place] [address] | | | PATHOLOGY | [address] | | | + + + + + | [facility] DEPARTMENT [facility] | [facility] | [place] [address] | | | PATHOLOGY | [address] | | | + + + + + MAGNESIUM, PLASMA (06/29/2006 6:55 AM PDT) + +-------+ + + + | Component | Value | Ref Range | Performed | Pathologist | | | | | At | Signature | + +-------+ + + + | MAGNESIUM,P | 2.1 | 1.8 - 2.5 mg/dL | [facility] | | | LASMA | | | DEPARTMENT | | | | | | OF | | | | | | PATHOLOGY | | + +-------+ + + + + + | Specimen | + + | | + + + + + + + | Performing | Address | City/State/Zipcode | Phone Number | | Organization | | | | + + + + + | [facility] DE[facility] | [address] | [place] [address] | | | PATHOLOGY | [address] | | | + + + + + | [facility] | [address] | [place] [address] | | | PATHOLOGY | [address] | | | + + + + + PHOSPHORUS, PLASMA (06/29/2006 6:55 AM PDT) + +---------+ + + + | Component | Value | Ref Range | Performed | Pathologist | | | | | At | Signature | + +---------+ + + + | PHOSPHORUS, | 2.2 (L) | 2.4 - 4.7 mg/dL | [facility] | | | PLASMA | | | DEPARTMENT | | | (LAB) | | | OF | | | | | | PATHOLOGY | | + +---------+ + + + + + | Specimen | + + | | + + + + + + + | Performing | Address | City/State/Zipcode | Phone Number | | Organization | | | | + + + + + | [facility] | [facility] | [place] [address] | | | PATHOLOGY | [address] | | | + + + + + | [facility] | [address] | [place] [address] | | | PATHOLOGY | [address] | | | + + + + + BASIC METABOLIC SET (06/29/2006 6:55 AM PDT) + +---------+ + + + | Component | Value | Ref Range | Performed | Pathologist | | | | | At | Signature | + +---------+ + + + | GLUCOSE, | 105 | 65 - 110 mg/dL | [facility] | | | PLASMA | | | DEPARTMENT | | | (LAB) | | | OF | | | | | | PATHOLOGY | | + +---------+ + + + | BUN, PLASMA | 2 (L) | 6 - 20 mg/dL | [facility] | | | (LAB) | | | DEPARTMENT | | | | | | OF | | | | | | PATHOLOGY | | + +---------+ + + + | CREATININE | 0.5 (L) | 0.6 - 1.1 mg/dL | [facility] | | | PLASMA | | | DEPARTMENT | | | (LAB) | | | OF | | | | | | PATHOLOGY | | + +---------+ + + + | SODIUM, | 139 | 136 - 145 | [facility] | | | PLASMA | | mmol/L | DEPARTMENT | | | (LAB) | | | OF | | | | | | PATHOLOGY | | + +---------+ + + + | POTASSIUM, | 3.2 (L) | 3.5 - 5.1 | [facility] | | | PLASMA | | mmol/L | DEPARTMENT | | | (LAB) | | | OF | | | | | | PATHOLOGY | | + +---------+ + + + | CHLORIDE, | 109 (H) | 98 - 107 mmol/L | [facility] | | | PLASMA | | | DEPARTMENT | | | (LAB) | | | OF | | | | | | PATHOLOGY | | + +---------+ + + + | TOTAL CO2, | 24 | 23 - 29 mmol/L | [facility] | | | PLASMA | | | DEPARTMENT | | | (LAB) | | | OF | | | | | | PATHOLOGY | | + +---------+ + + + | CALCIUM, | 8.6 | 8.5 - 10.5 | [facility] | | | PLASMA | | mg/dL | DEPARTMENT | | | (LAB) | | | OF | | | | | | PATHOLOGY | | + +---------+ + + + + + | Specimen | + + | | + + + + + + + | Performing | Address | City/State/Zipcode | Phone Number | | Organization | | | | + + + + + | [facility] | [id number] | [place] [address] | | | PATHOLOGY | [address] | | | + + + + + | [facility] | [address] | [place] [address] | | | PATHOLOGY | [address] | | | + + + + + CBC ONLY WITH PLATELET (06/29/2006 6:55 AM PDT) + + + + + + | Component | Value | Ref Range | Performed | Pathologist | | | | | At | Signature | + + + + + + | WHITE CELL | 11.1 (H) | 4.4 - 11.0 K/cu | [facility] | | | COUNT | | mm | DEPARTMENT | | | | | | OF | | | | | | PATHOLOGY | | + + + + + + | RED CELL | 4.07 | 4.00 - 5.20 | [facility] | | | COUNT | | M/cu mm | DEPARTMENT | | | | | | OF | | | | | | PATHOLOGY | | + + + + + + | HEMOGLOBIN | 11.9 (L) | 12.0 - 16.0 | [facility] | | | | | g/dL | DEPARTMENT | | | | | | OF | | | | | | PATHOLOGY | | + + + + + + | HEMATOCRIT | 35.1 (L) | 36.0 - 46.0 % | [facility] | | | | | | DEPARTMENT | | | | | | OF | | | | | | PATHOLOGY | | + + + + + + | MCV | 86.2 | 80.0 - 96.0 fL | [facility] | | | | | | DEPARTMENT | | | | | | OF | | | | | | PATHOLOGY | | + + + + + + | MCHC | 33.9 | 33.4 - 35.5 | [facility] | | | | | g/dL | DEPARTMENT | | | | | | OF | | | | | | PATHOLOGY | | + + + + + + | RDW | 13.4 | 11.5 - 15.0 % | [facility] | | | | | | DEPARTMENT | | | | | | OF | | | | | | PATHOLOGY | | + + + + + + | PLATELET | 309 | 150 - 400 K/cu | [facility] | | | COUNT | | mm | DEPARTMENT | | | | | | OF | | | | | | PATHOLOGY | | + + + + + + + + | Specimen | + + | | + + + + + + + | Performing | Address | City/State/Zipcode | Phone Number | | Organization | | | | + + + + + | [facility] DEPARTMENT [facility] | [address] | [place] [address] | | | PATHOLOGY | [address] | | | + + + + + | [facility] | [address] | [place] [address] | | | PATHOLOGY | [address] | | | + + + + + PHOSPHORUS, PLASMA (06/28/2006 7:40 PM PDT) + +---------+ + + + | Component | Value | Ref Range | Performed | Pathologist | | | | | At | Signature | + +---------+ + + + | PHOSPHORUS, | 1.2 (L) | 2.4 - 4.7 mg/dL | [facility] | | | PLASMA | | | DEPARTMENT | | | (LAB) | | | OF | | | | | | PATHOLOGY | | + +---------+ + + + + + | Specimen | + + | | + + + + + + + | Performing | Address | City/State/Zipcode | Phone Number | | Organization | | | | + + + + + | [facility]MENT [facility] | [address] | [place] [address] | | | PATHOLOGY | [address] | | | + + + + + | [facility] | [address] | [place] [address] | | | PATHOLOGY | [address] | | | + + + + + MAGNESIUM, PLASMA (06/28/2006 7:40 PM PDT) + +-------+ + + + | Component | Value | Ref Range | Performed | Pathologist | | | | | At | Signature | + +-------+ + + + | MAGNESIUM,P | 2.2 | 1.8 - 2.5 mg/dL | [facility] | | | LASMA | | | DEPARTMENT | | | | | | OF | | | | | | PATHOLOGY | | + +-------+ + + + + + | Specimen | + + | | + + + + + + + | Performing | Address | City/State/Zipcode | Phone Number | | Organization | | | | + + + + + | [facility] DEPARTMENT [facility] | [address] | [place] [address] | | | PATHOLOGY | [address] | | | + + + + + | [facility]MENT [facility] | [address] | [place] [address] | | | PATHOLOGY | [address] | | | + + + + + BASIC METABOLIC SET (06/28/2006 7:40 PM PDT) + +---------+ + + + | Component | Value | Ref Range | Performed | Pathologist | | | | | At | Signature | + +---------+ + + + | GLUCOSE, | 130 (H) | 65 - 110 mg/dL | [facility] | | | PLASMA | | | DEPARTMENT | | | (LAB) | | | OF | | | | | | PATHOLOGY | | + +---------+ + + + | BUN, PLASMA | 3 (L) | 6 - 20 mg/dL | [facility] | | | (LAB) | | | DEPARTMENT | | | | | | OF | | | | | | PATHOLOGY | | + +---------+ + + + | CREATININE | 0.7 | 0.6 - 1.1 mg/dL | [facility] | | | PLASMA | | | DEPARTMENT | | | (LAB) | | | OF | | | | | | PATHOLOGY | | + +---------+ + + + | SODIUM, | 140 | 136 - 145 | [facility] | | | PLASMA | | mmol/L | DEPARTMENT | | | (LAB) | | | OF | | | | | | PATHOLOGY | | + +---------+ + + + | POTASSIUM, | 3.6 | 3.5 - 5.1 | [facility] | | | PLASMA | | mmol/L | DEPARTMENT | | | (LAB) | | | OF | | | | | | PATHOLOGY | | + +---------+ + + + | CHLORIDE, | 105 | 98 - 107 mmol/L | [facility] | | | PLASMA | | | DEPARTMENT | | | (LAB) | | | OF | | | | | | PATHOLOGY | | + +---------+ + + + | TOTAL CO2, | 24 | 23 - 29 mmol/L | [facility] | | | PLASMA | | | DEPARTMENT | | | (LAB) | | | OF | | | | | | PATHOLOGY | | + +---------+ + + + | CALCIUM, | 8.6 | 8.5 - 10.5 | [facility] | | | PLASMA | | mg/dL | DEPARTMENT | | | (LAB) | | | OF | | | | | | PATHOLOGY | | + +---------+ + + + + + | Specimen | + + | | + + + + + + + | Performing | Address | City/State/Zipcode | Phone Number | | Organization | | | | + + + + + | [facility] DEPARTMENT [facility] | [address] | [place] [address] | | | PATHOLOGY | [address] | | | + + + + + | [facility]MENT [facility] | [address] | [place] [address] | | | PATHOLOGY | [address] | | | + + + + + MAGNESIUM, PLASMA (06/28/2006 6:20 AM PDT) + +-------+ + + + | Component | Value | Ref Range | Performed | Pathologist | | | | | At | Signature | + +-------+ + + + | MAGNESIUM,P | 2.1 | 1.8 - 2.5 mg/dL | [facility] | | | LASMA | | | DEPARTMENT | | | | | | OF | | | | | | PATHOLOGY | | + +-------+ + + + + + | Specimen | + + | | + + + + + + + | Performing | Address | City/State/Zipcode | Phone Number | | Organization | | | | + + + + + | [facility] DEPARTMENT OF | [facility] | [place] [address] | | | PATHOLOGY | [address] | | | + + + + + | [facility] DEPARTMENT OF | [facility] | [place] [address] | | | PATHOLOGY | [address] | | | + + + + + COMP METABOLIC SET (06/28/2006 6:20 AM PDT) + +---------+ + + + | Component | Value | Ref Range | Performed | Pathologist | | | | | At | Signature | + +---------+ + + + | GLUCOSE, | 183 (H) | 65 - 110 mg/dL | [facility] | | | PLASMA | | | DEPARTMENT | | | (LAB) | | | OF | | | | | | PATHOLOGY | | + +---------+ + + + | BUN, PLASMA | 4 (L) | 6 - 20 mg/dL | [facility] | | | (LAB) | | | DEPARTMENT | | | | | | OF | | | | | | PATHOLOGY | | + +---------+ + + + | CREATININE | 0.8 | 0.6 - 1.1 mg/dL | [facility] | | | PLASMA | | | DEPARTMENT | | | (LAB) | | | OF | | | | | | PATHOLOGY | | + +---------+ + + + | TOTAL | 5.9 (L) | 6.1 - 7.9 g/dL | [facility] | | | PROTEIN, | | | DEPARTMENT | | | PLASMA | | | OF | | | (LAB) | | | PATHOLOGY | | + +---------+ + + + | ALBUMIN, | 3.3 (L) | 3.5 - 4.7 g/dL | [facility] | | | PLASMA | | | DEPARTMENT | | | (LAB) | | | OF | | | | | | PATHOLOGY | | + +---------+ + + + | CALCIUM, | 8.7 | 8.5 - 10.5 | [facility] | | | PLASMA | | mg/dL | DEPARTMENT | | | (LAB) | | | OF | | | | | | PATHOLOGY | | + +---------+ + + + | BILIRUBIN | 0.3 | 0.3 - 1.2 mg/dL | [facility] | | | TOTAL | | | DEPARTMENT | | | | | | OF | | | | | | PATHOLOGY | | + +---------+ + + + | ALK PHOS | 71 | 42 - 98 U/L | [facility] | | | | | | DEPARTMENT | | | | | | OF | | | | | | PATHOLOGY | | + +---------+ + + + | AST(SGOT) | 40 | 15 - 41 U/L | [facility] | | | | | | DEPARTMENT | | | | | | OF | | | | | | PATHOLOGY | | + +---------+ + + + | SODIUM, | 137 | 136 - 145 | [facility] | | | PLASMA | | mmol/L | DEPARTMENT | | | (LAB) | | | OF | | | | | | PATHOLOGY | | + +---------+ + + + | POTASSIUM, | 2.8 (L) | 3.5 - 5.1 | [facility] | | | PLASMA | | mmol/L | DEPARTMENT | | | (LAB) | | | OF | | | | | | PATHOLOGY | | + +---------+ + + + | CHLORIDE, | 105 | 98 - 107 mmol/L | [facility] | | | PLASMA | | | DEPARTMENT | | | (LAB) | | | OF | | | | | | PATHOLOGY | | + +---------+ + + + | TOTAL CO2, | 26 | 23 - 29 mmol/L | [facility] | | | PLASMA | | | DEPARTMENT | | | (LAB) | | | OF | | | | | | PATHOLOGY | | + +---------+ + + + | ALT (SGPT) | 83 (H) | 13 - 48 U/L | [facility] | | | | | | DEPARTMENT | | | | | | OF | | | | | | PATHOLOGY | | + +---------+ + + + + + | Specimen | + + | | + + + + + + + | Performing | Address | City/State/Zipcode | Phone Number | | Organization | | | | + + + + + | [facility] DEPARTMENT OF | [address] | [place] [address] | | | PATHOLOGY | [address] | | | + + + + + | [facility] DEPARTMENT OF | [address] | [place] [address] | | | PATHOLOGY | [address] | | | + + + + + PHOSPHORUS, PLASMA (06/28/2006 6:20 AM PDT) + +---------+ + + + | Component | Value | Ref Range | Performed | Pathologist | | | | | At | Signature | + +---------+ + + + | PHOSPHORUS, | 2.3 (L) | 2.4 - 4.7 mg/dL | [facility] | | | PLASMA | | | DEPARTMENT | | | (LAB) | | | OF | | | | | | PATHOLOGY | | + +---------+ + + + + + | Specimen | + + | | + + + + + + + | Performing | Address | City/State/Zipcode | Phone Number | | Organization | | | | + + + + + | [facility] | [address] | [place] [address] | | | PATHOLOGY | [address] | | | + + + + + | [facility] | [address] | [place] [address] | | | PATHOLOGY | [address] | | | + + + + + CBC ONLY WITH PLATELET (06/28/2006 6:20 AM PDT) + +-------+ + + + | Component | Value | Ref Range | Performed | Pathologist | | | | | At | Signature | + +-------+ + + + | WHITE CELL | 10.7 | 4.4 - 11.0 K/cu | [facility] | | | COUNT | | mm | DEPARTMENT | | | | | | OF | | | | | | PATHOLOGY | | + +-------+ + + + | RED CELL | 4.39 | 4.00 - 5.20 | [facility] | | | COUNT | | M/cu mm | DEPARTMENT | | | | | | OF | | | | | | PATHOLOGY | | + +-------+ + + + | HEMOGLOBIN | 12.9 | 12.0 - 16.0 | [facility] | | | | | g/dL | DEPARTMENT | | | | | | OF | | | | | | PATHOLOGY | | + +-------+ + + + | HEMATOCRIT | 37.4 | 36.0 - 46.0 % | [facility] | | | | | | DEPARTMENT | | | | | | OF | | | | | | PATHOLOGY | | + +-------+ + + + | MCV | 85.1 | 80.0 - 96.0 fL | [facility] | | | | | | DEPARTMENT | | | | | | OF | | | | | | PATHOLOGY | | + +-------+ + + + | MCHC | 34.4 | 33.4 - 35.5 | [facility] | | | | | g/dL | DEPARTMENT | | | | | | OF | | | | | | PATHOLOGY | | + +-------+ + + + | RDW | 13.1 | 11.5 - 15.0 % | [facility] | | | | | | DEPARTMENT | | | | | | OF | | | | | | PATHOLOGY | | + +-------+ + + + | PLATELET | 353 | 150 - 400 K/cu | [facility] | | | COUNT | | mm | DEPARTMENT | | | | | | OF | | | | | | PATHOLOGY | | + +-------+ + + + + + | Specimen | + + | | + + + + + + + | Performing | Address | City/State/Zipcode | Phone Number | | Organization | | | | + + + + + | [facility] DEPARTMENT OF | [address] | [place] [address] | | | PATHOLOGY | [address] | | | + + + + + | [facility]MENT OF | [address] | [place] [address] | | | PATHOLOGY | [address] | | | + + + + + PROTHROMBIN TIME (06/28/2006 6:20 AM PDT) + + + + + + | Component | Value | Ref Range | Performed | Pathologist | | | | | At | Signature | + + + + + + | INR | 1.10Comment: | 0.90 - 1.20 INR | [facility] | | | | PT INR Therapeutic | | DEPARTMENT | | | | ranges for full | | OF | | | | anticoagulation: | | PATHOLOGY | | | | INR for | | | | | | Venous Thromboembolism | | | | | | | | | | | | (2.0-3.0)INR | | | | | | INR for most | | | | | | patients with mech. | | | | | | valves (2.5-3.5)INR | | | | + + + + + + + + | Specimen | + + | | + + + + + + + | Performing | Address | City/State/Zipcode | Phone Number | | Organization | | | | + + + + + | [facility] | [address] | [place] [address] | | | PATHOLOGY | [address] | | | + + + + + | [facility] | [facility] | [place] [address] | | | PATHOLOGY | [address] | | | + + + + + COMP METABOLIC SET (06/27/2006 5:40 PM PDT) + +---------+ + + + | Component | Value | Ref Range | Performed | Pathologist | | | | | At | Signature | + +---------+ + + + | GLUCOSE, | 113 (H) | 65 - 110 mg/dL | [facility] | | | PLASMA | | | DEPARTMENT | | | (LAB) | | | OF | | | | | | PATHOLOGY | | + +---------+ + + + | BUN, PLASMA | 4 (L) | 6 - 20 mg/dL | [facility] | | | (LAB) | | | DEPARTMENT | | | | | | OF | | | | | | PATHOLOGY | | + +---------+ + + + | CREATININE | 0.7 | 0.6 - 1.1 mg/dL | [facility] | | | PLASMA | | | DEPARTMENT | | | (LAB) | | | OF | | | | | | PATHOLOGY | | + +---------+ + + + | TOTAL | 6.0 (L) | 6.1 - 7.9 g/dL | [facility] | | | PROTEIN, | | | DEPARTMENT | | | PLASMA | | | OF | | | (LAB) | | | PATHOLOGY | | + +---------+ + + + | ALBUMIN, | 3.4 (L) | 3.5 - 4.7 g/dL | [facility] | | | PLASMA | | | DEPARTMENT | | | (LAB) | | | OF | | | | | | PATHOLOGY | | + +---------+ + + + | CALCIUM, | 8.8 | 8.5 - 10.5 | [facility] | | | PLASMA | | mg/dL | DEPARTMENT | | | (LAB) | | | OF | | | | | | PATHOLOGY | | + +---------+ + + + | BILIRUBIN | 0.4 | 0.3 - 1.2 mg/dL | [facility] | | | TOTAL | | | DEPARTMENT | | | | | | OF | | | | | | PATHOLOGY | | + +---------+ + + + | ALK PHOS | 66 | 42 - 98 U/L | [facility] | | | | | | DEPARTMENT | | | | | | OF | | | | | | PATHOLOGY | | + +---------+ + + + | AST(SGOT) | 45 (H) | 15 - 41 U/L | [facility] | | | | | | DEPARTMENT | | | | | | OF | | | | | | PATHOLOGY | | + +---------+ + + + | SODIUM, | 138 | 136 - 145 | [facility] | | | PLASMA | | mmol/L | DEPARTMENT | | | (LAB) | | | OF | | | | | | PATHOLOGY | | + +---------+ + + + | POTASSIUM, | 3.1 (L) | 3.5 - 5.1 | [facility] | | | PLASMA | | mmol/L | DEPARTMENT | | | (LAB) | | | OF | | | | | | PATHOLOGY | | + +---------+ + + + | CHLORIDE, | 100 | 98 - 107 mmol/L | [facility] | | | PLASMA | | | DEPARTMENT | | | (LAB) | | | OF | | | | | | PATHOLOGY | | + +---------+ + + + | TOTAL CO2, | 24 | 23 - 29 mmol/L | [facility] | | | PLASMA | | | DEPARTMENT | | | (LAB) | | | OF | | | | | | PATHOLOGY | | + +---------+ + + + | ALT (SGPT) | 102 (H) | 13 - 48 U/L | [facility] | | | | | | DEPARTMENT | | | | | | OF | | | | | | PATHOLOGY | | + +---------+ + + + + + | Specimen | + + | | + + + + + + + | Performing | Address | City/State/Zipcode | Phone Number | | Organization | | | | + + + + + | [facility] DEPARTMENT OF | [address] | [place] [address] | | | PATHOLOGY | [address] | | | + + + + + | [facility] DEPARTMENT OF | [address] | [place] [address] | | | PATHOLOGY | [address] | | | + + + + + MAGNESIUM, PLASMA (06/27/2006 5:40 PM PDT) + +-------+ + + + | Component | Value | Ref Range | Performed | Pathologist | | | | | At | Signature | + +-------+ + + + | MAGNESIUM,P | 1.8 | 1.8 - 2.5 mg/dL | [facility] | | | LASMA | | | DEPARTMENT | | | | | | OF | | | | | | PATHOLOGY | | + +-------+ + + + + + | Specimen | + + | | + + + + + + + | Performing | Address | City/State/Zipcode | Phone Number | | Organization | | | | + + + + + | [facility] DEPARTMENT OF | [facility] | [place] [address] | | | PATHOLOGY | [address] | | | + + + + + | [facility] DEPARTMENT OF | [address] | [place] [address] | | | PATHOLOGY | [address] | | | + + + + + PHOSPHORUS, PLASMA (06/27/2006 5:40 PM PDT) + +---------+ + + + | Component | Value | Ref Range | Performed | Pathologist | | | | | At | Signature | + +---------+ + + + | PHOSPHORUS, | 1.3 (L) | 2.4 - 4.7 mg/dL | [facility] | | | PLASMA | | | DEPARTMENT | | | (LAB) | | | OF | | | | | | PATHOLOGY | | + +---------+ + + + + + | Specimen | + + | | + + + + + + + | Performing | Address | City/State/Zipcode | Phone Number | | Organization | | | | + + + + + | [facility] DEPARTMENT OF | [address] | [place] [address] | | | PATHOLOGY | [address] | | | + + + + + | [facility] DEPARTMENT OF | [address] | [place] [address] | | | PATHOLOGY | [address] | | | + + + + + PROTHROMBIN TIME (06/27/2006 5:40 PM PDT) + + + + + + | Component | Value | Ref Range | Performed | Pathologist | | | | | At | Signature | + + + + + + | INR | 1.17Comment: | 0.90 - 1.20 INR | [facility] | | | | PT INR Therapeutic | | DEPARTMENT | | | | ranges for full | | OF | | | | anticoagulation: | | PATHOLOGY | | | | INR for | | | | | | Venous Thromboembolism | | | | | | | | | | | | (2.0-3.0)INR | | | | | | INR for most | | | | | | patients with mech. | | | | | | valves (2.5-3.5)INR | | | | + + + + + + + + | Specimen | + + | | + + + + + + + | Performing | Address | City/State/Zipcode | Phone Number | | Organization | | | | + + + + + | [facility] DEPARTMENT OF | [address] | [place] [address] | | | PATHOLOGY | [address] | | | + + + + + | [facility] | [address] | [place] [address] | | | PATHOLOGY | [address] | | | + + + + + DRUG SCREEN PROFILE 5, URINE (06/27/2006 11:55 AM PDT) + + + + + + | Component | Value | Ref Range | Performed | Pathologist | | | | | At | Signature | + + + + + + | ETHANOL | Negative | Negative | | | | (ALCOHOL) | | | | | | SCR, URINE | | | | | + + + + + + | AMPHET/MET | Negative | Negative | | | | SCRN,URINE | | | | | + + + + + + | BARBITURATE | Negative | Negative | | | | SCREEN, | | | | | | URINE | | | | | + + + + + + | BENZODIAZEP | Negative | Negative | | | | INE SCR, UR | | | | | + + + + + + | CANNABINOID | Negative | Negative | | | | UR | | | | | + + + + + + | COCAINE | Negative | Negative | | | | MET. SCRN, | | | | | | URINE | | | | | + + + + + + | OPIATE | POSITIVE | Negative | | | | URINE | | | | | + + + + + + | ORGANIC | Quantity Not Sufficient | | | | | BASES URINE | | | | | + + + + + + + + | Specimen | + + | | + + + + + | Narrative | Performed At | + + + | Test performed at [facility] | | + + + + + + + + | Performing | Address | City/State/Zipcode | Phone Number | | Organization | | | | + + + + + | [facility] | [address] | [place] [address] | | | LABORATORY | | | | + + + + + OPIATE CONFIRM FOR POC USE ONLY (06/27/2006 11:55 AM PDT) + + + + + + | Component | Value | Ref Range | Performed | Pathologist | | | | | At | Signature | + + + + + + | OPIATE/OXY | Positive for Hydrocodone | | | | | CONFIRM, | | | | | | URINE | | | | | + + + + + + + + | Specimen | + + | | + + + + + | Narrative | Performed At | + + + | Test performed at [facility] | | + + + + + + + + | Performing | Address | City/State/Zipcode | Phone Number | | Organization | | | | + + + + + | [facility] | [address] | [place] [address] | | | LABORATORY | | | | + + + + + IOD-ORGANIC BASE CONFIRM (06/27/2006 11:55 AM PDT) + + | Specimen | + + | | + + + + + | Narrative | Performed At | + + + | Test performed at [facility] | [facility] | | | DEPARTMENT OF | | | PATHOLOGY | + + + + + + + + | Performing | Address | City/State/Zipcode | Phone Number | | Organization | | | | + + + + + | [facility] | [address] | [place] [address] | | | PATHOLOGY | [address] | | | + + + + + | [facility] | [address] | [place] [address] | | | PATHOLOGY | [address] | | | + + + + + CULT, URINE BACTI (06/27/2006 11:55 AM PDT) + + + + + + | Component | Value | Ref Range | Performed | Pathologist | | | | | At | Signature | + + + + + + | SOURCE BODY | Retention catheter | | | | | SITE | | | | | + + + + + + | CULTURE | Urine Culture | | | | | RESULT | | | | | | | Source...............: | | | | | | Retention catheter | | | | | | Culture: Final | | | | | | Report: No growth (< | | | | | | 1,000 col/ml) after | | | | | | 18-24 | | | | | | | | | | | | hours Final | | | | | | ReportComment: Test | | | | | | performed at [facility] | | | | | | [facility] | | | | | | Laboratory. | | | | + + + + + + + + | Specimen | + + | | + + + + + + + | Performing | Address | City/State/Zipcode | Phone Number | | Organization | | | | + + + + + | [facility] | [address] | [place] [address] | | | LAB-MICRO | | | | + + + + + TSH-THYROID STIM HORMONE (06/27/2006 11:55 AM PDT) + + + + + + | Component | Value | Ref Range | Performed | Pathologist | | | | | At | Signature | + + + + + + | TSH | 2.60Comment: Test | 0.28 - 5.00 | | | | | performed by [facility] | uIU/ml | | | | | [facility] | | | | | | [facility]. | | | | + + + + + + + + | Specimen | + + | | + + + + + + + | Performing | Address | City/State/Zipcode | Phone Number | | Organization | | | | + + + + + | [facility] | [address] | [place] [address] | | | LABORATORY | | | | + + + + + MAGNESIUM, PLASMA (06/27/2006 11:55 AM PDT) + +-------+ + + + | Component | Value | Ref Range | Performed | Pathologist | | | | | At | Signature | + +-------+ + + + | MAGNESIUM,P | 1.9 | 1.8 - 2.5 mg/dL | [facility] | | | LASMA | | | DEPARTMENT | | | | | | OF | | | | | | PATHOLOGY | | + +-------+ + + + + + | Specimen | + + | | + + + + + + + | Performing | Address | City/State/Zipcode | Phone Number | | Organization | | | | + + + + + | [facility] DEPARTMENT OF | [address] | [place] [address] | | | PATHOLOGY | [address] | | | + + + + + | [facility] DEPARTMENT OF | [address] | [place] [address] | | | PATHOLOGY | [address] | | | + + + + + COMP METABOLIC SET (06/27/2006 11:55 AM PDT) + +---------+ + + + | Component | Value | Ref Range | Performed | Pathologist | | | | | At | Signature | + +---------+ + + + | GLUCOSE, | 137 (H) | 65 - 110 mg/dL | [facility] | | | PLASMA | | | DEPARTMENT | | | (LAB) | | | OF | | | | | | PATHOLOGY | | + +---------+ + + + | BUN, PLASMA | 6 | 6 - 20 mg/dL | [facility] | | | (LAB) | | | DEPARTMENT | | | | | | OF | | | | | | PATHOLOGY | | + +---------+ + + + | CREATININE | 0.7 | 0.6 - 1.1 mg/dL | [facility] | | | PLASMA | | | DEPARTMENT | | | (LAB) | | | OF | | | | | | PATHOLOGY | | + +---------+ + + + | TOTAL | 5.5 (L) | 6.1 - 7.9 g/dL | [facility] | | | PROTEIN, | | | DEPARTMENT | | | PLASMA | | | OF | | | (LAB) | | | PATHOLOGY | | + +---------+ + + + | ALBUMIN, | 3.0 (L) | 3.5 - 4.7 g/dL | [facility] | | | PLASMA | | | DEPARTMENT | | | (LAB) | | | OF | | | | | | PATHOLOGY | | + +---------+ + + + | CALCIUM, | 8.3 (L) | 8.5 - 10.5 | [facility] | | | PLASMA | | mg/dL | DEPARTMENT | | | (LAB) | | | OF | | | | | | PATHOLOGY | | + +---------+ + + + | BILIRUBIN | 0.6 | 0.3 - 1.2 mg/dL | [facility] | | | TOTAL | | | DEPARTMENT | | | | | | OF | | | | | | PATHOLOGY | | + +---------+ + + + | ALK PHOS | 62 | 42 - 98 U/L | [facility] | | | | | | DEPARTMENT | | | | | | OF | | | | | | PATHOLOGY | | + +---------+ + + + | AST(SGOT) | 50 (H) | 15 - 41 U/L | [facility] | | | | | | DEPARTMENT | | | | | | OF | | | | | | PATHOLOGY | | + +---------+ + + + | SODIUM, | 135 (L) | 136 - 145 | [facility] | | | PLASMA | | mmol/L | DEPARTMENT | | | (LAB) | | | OF | | | | | | PATHOLOGY | | + +---------+ + + + | POTASSIUM, | 3.2 (L) | 3.5 - 5.1 | [facility] | | | PLASMA | | mmol/L | DEPARTMENT | | | (LAB) | | | OF | | | | | | PATHOLOGY | | + +---------+ + + + | CHLORIDE, | 105 | 98 - 107 mmol/L | [facility] | | | PLASMA | | | DEPARTMENT | | | (LAB) | | | OF | | | | | | PATHOLOGY | | + +---------+ + + + | TOTAL CO2, | 23 | 23 - 29 mmol/L | [facility] | | | PLASMA | | | DEPARTMENT | | | (LAB) | | | OF | | | | | | PATHOLOGY | | + +---------+ + + + | ALT (SGPT) | 104 (H) | 13 - 48 U/L | [facility] | | | | | | DEPARTMENT | | | | | | OF | | | | | | PATHOLOGY | | + +---------+ + + + + + | Specimen | + + | | + + + + + + + | Performing | Address | City/State/Zipcode | Phone Number | | Organization | | | | + + + + + | [facility] | [address] | [place] [address] | | | PATHOLOGY | [address] | | | + + + + + | [facility] | [address] [place] [address] | [place] [address] | | | PATHOLOGY | [address] | | | + + + + + PHOSPHORUS, PLASMA (06/27/2006 11:55 AM PDT) + +---------+ + + + | Component | Value | Ref Range | Performed | Pathologist | | | | | At | Signature | + +---------+ + + + | PHOSPHORUS, | 1.6 (L) | 2.4 - 4.7 mg/dL | [facility] | | | PLASMA | | | DEPARTMENT | | | (LAB) | | | OF | | | | | | PATHOLOGY | | + +---------+ + + + + + | Specimen | + + | | + + + + + + + | Performing | Address | City/State/Zipcode | Phone Number | | Organization | | | | + + + + + | [facility] DEPARTMENT [facility] | [address] | [place] [address] | | | PATHOLOGY | [address] | | | + + + + + | [facility] DEPARTMENT [facility] | [address] | [place] [address] | | | PATHOLOGY | [address] | | | + + + + + PROTHROMBIN TIME (06/27/2006 11:55 AM PDT) + + + + + + | Component | Value | Ref Range | Performed | Pathologist | | | | | At | Signature | + + + + + + | INR | 1.19Comment: | 0.90 - 1.20 INR | [facility] | | | | PT INR Therapeutic | | DEPARTMENT | | | | ranges for full | | OF | | | | anticoagulation: | | PATHOLOGY | | | | INR for | | | | | | Venous Thromboembolism | | | | | | | | | | | | (2.0-3.0)INR | | | | | | INR for most | | | | | | patients with mech. | | | | | | valves (2.5-3.5)INR | | | | + + + + + + + + | Specimen | + + | | + + + + + + + | Performing | Address | City/State/Zipcode | Phone Number | | Organization | | | | + + + + + | [facility] | [address] | [place] [address] | | | PATHOLOGY | [address] | | | + + + + + | [facility] DEPARTMENT | [address] | [place] [address] | | | PATHOLOGY | [address] | | | + + + + + JAIME OATES ONLY (06/27/2006 11:55 AM PDT) + + + + + + | Component | Value | Ref Range | Performed | Pathologist | | | | | At | Signature | + + + + + + | COLOR(UR) | Straw | | [facility] | | | | | | DEPARTMENT | | | | | | OF | | | | | | PATHOLOGY | | + + + + + + | APPEARANCE | Clear | | [facility] | | | | | | DEPARTMENT | | | | | | OF | | | | | | PATHOLOGY | | + + + + + + | GLUCOSE(UR) | Negative | mg/dL | [facility] | | | | | | DEPARTMENT | | | | | | OF | | | | | | PATHOLOGY | | + + + + + + | BILIRUBIN | Negative | | [facility] | | | | | | DEPARTMENT | | | | | | OF | | | | | | PATHOLOGY | | + + + + + + | KETONES | >=80 | mg/dL | [facility] | | | | | | DEPARTMENT | | | | | | OF | | | | | | PATHOLOGY | | + + + + + + | SPECIFIC | 1.020 | 1.005 - 1.030 | [facility] | | | GRAVITY | | | DEPARTMENT | | | | | | OF | | | | | | PATHOLOGY | | + + + + + + | BLOOD | Large | | [facility] | | | | | | DEPARTMENT | | | | | | OF | | | | | | PATHOLOGY | | + + + + + + | PH(UR) | 6.0 | 5.0 - 8.0 | [facility] | | | | | | DEPARTMENT | | | | | | OF | | | | | | PATHOLOGY | | + + + + + + | PROTEIN(LAB | Negative | mg/dL | [facility] | | | ) | | | DEPARTMENT | | | | | | OF | | | | | | PATHOLOGY | | + + + + + + | UROBILINOGE | 0.2 | 0 - 0.2 MADELYN | [facility] | | | N | | UNITS | DEPARTMENT | | | | | | OF | | | | | | PATHOLOGY | | + + + + + + | NITRITES | Negative | Negative | [facility] | | | | | | DEPARTMENT | | | | | | OF | | | | | | PATHOLOGY | | + + + + + + | LEUKOCYTE | Negative | Negative | [facility] | | | ESTERASE | | | DEPARTMENT | | | | | | OF | | | | | | PATHOLOGY | | + + + + + + + + | Specimen | + + | | + + + + + + + | Performing | Address | City/State/Zipcode | Phone Number | | Organization | | | | + + + + + | [facility] DEPARTMENT [facility] | [address] | [place] [address] | | | PATHOLOGY | [address] | | | + + + + + | [facility] | [address] | [place] [address] | | | PATHOLOGY | [address] | | | + + + + + URINE, MICROSCOPIC EXAM (06/27/2006 11:55 AM PDT) + +-------+ + + + | Component | Value | Ref Range | Performed | Pathologist | | | | | At | Signature | + +-------+ + + + | SQUAMOUS | Few | /hpf | [facility] | | | EPITHELIAL | | | DEPARTMENT | | | | | | OF | | | | | | PATHOLOGY | | + +-------+ + + + | NON-SQUAMOU | None | /hpf | [facility] | | | S EPITH | | | DEPARTMENT | | | | | | OF | | | | | | PATHOLOGY | | + +-------+ + + + | RED CELLS | 20-25 | 0 - 3 /hpf | [facility] | | | | | | DEPARTMENT | | | | | | OF | | | | | | PATHOLOGY | | + +-------+ + + + | WHITE CELLS | 0-1 | 0 - 5 /hpf | [facility] | | | | | | DEPARTMENT | | | | | | OF | | | | | | PATHOLOGY | | + +-------+ + + + | BACTERIA | None | /hpf | [facility] | | | | | | DEPARTMENT | | | | | | OF | | | | | | PATHOLOGY | | + +-------+ + + + | MUCOUS | None | /lpf | [facility] | | | | | | DEPARTMENT | | | | | | OF | | | | | | PATHOLOGY | | + +-------+ + + + | HYALINE | None | 0 - 1 /lpf | [facility] | | | CASTS | | | DEPARTMENT | | | | | | OF | | | | | | PATHOLOGY | | + +-------+ + + + | GRANULAR | None | /lpf | [facility] | | | CASTS | | | DEPARTMENT | | | | | | OF | | | | | | PATHOLOGY | | + +-------+ + + + | CELLULAR | None | /lpf | [facility] | | | CASTS | | | DEPARTMENT | | | | | | OF | | | | | | PATHOLOGY | | + +-------+ + + + | AMORPHOUS | None | /hpf | [facility] | | | CRYSTALS | | | DEPARTMENT | | | | | | OF | | | | | | PATHOLOGY | | + +-------+ + + + | CALCIUM | None | /hpf | [facility] | | | OXALATE | | | DEPARTMENT | | | LOIS | | | OF | | | | | | PATHOLOGY | | + +-------+ + + + | URIC ACID | None | /hpf | [facility] | | | CRYSTALS | | | DEPARTMENT | | | | | | OF | | | | | | PATHOLOGY | | + +-------+ + + + | TRIPLE P04 | None | /hpf | [facility] | | | CRYSTALS | | | DEPARTMENT | | | | | | OF | | | | | | PATHOLOGY | | + +-------+ + + + | YEAST (LAB) | None | /hpf | [facility] | | | | | | DEPARTMENT | | | | | | OF | | | | | | PATHOLOGY | | + +-------+ + + + | TRICHOMONAS | None | /hpf | [facility] | | | | | | DEPARTMENT | | | | | | OF | | | | | | PATHOLOGY | | + +-------+ + + + + + | Specimen | + + | | + + + + + + + | Performing | Address | City/State/Zipcode | Phone Number | | Organization | | | | + + + + + | [facility] DEPARTMENT [facility] | [address] | [place] [address] | | | PATHOLOGY | [address] | | | + + + + + | [facility] DEPARTMENT [facility] | [address] | [facility] [place] [address] | | | PATHOLOGY | [address] | | | + + + + + PHOSPHORUS, PLASMA (06/27/2006 6:45 AM PDT) + +---------+ + + + | Component | Value | Ref Range | Performed | Pathologist | | | | | At | Signature | + +---------+ + + + | PHOSPHORUS, | 0.5 (*) | 2.4 - 4.7 mg/dL | [facility] | | | PLASMA | | | DEPARTMENT | | | (LAB) | | | OF | | | | | | PATHOLOGY | | + +---------+ + + + + + | Specimen | + + | | + + + + + | Narrative | Performed At | + + + | Phoned Readback. | [facility] | | | DEPARTMENT OF | | | PATHOLOGY | + + + + + + + + | Performing | Address | City/State/Zipcode | Phone Number | | Organization | | | | + + + + + | [facility] DEPARTMENT OF | [address] | [place] [address] | | | PATHOLOGY | [address] | | | + + + + + | [facility] | [address] | [place] [address] | | | PATHOLOGY | [address] | | | + + + + + CULT, BLOOD BACTI & EDITH (06/27/2006 4:15 AM PDT) + + + + + + | Component | Value | Ref Range | Performed | Pathologist | | | | | At | Signature | + + + + + + | SOURCE BODY | Left Antecubital | | | | | SITE | Peripheral | | | | + + + + + + | CULTURE | Blood Culture | | | | | RESULT | | | | | | | Source.................. | | | | | | : Left Antecubital | | | | | | Peripheral | | | | | | Result.................. | | | | | | . Final: No growth at 5 | | | | | | days.Comment: Test | | | | | | performed at [facility] | | | | | | [facility] | | | | | | Laboratory. | | | | + + + + + + + + | Specimen | + + | | + + + + + + + | Performing | Address | City/State/Zipcode | Phone Number | | Organization | | | | + + + + + | [facility] | [address] | [place] [address] | | | LAB-MICRO | | | | + + + + + CULT, URINE BACTI (06/27/2006 4:15 AM PDT) + + + + + + | Component | Value | Ref Range | Performed | Pathologist | | | | | At | Signature | + + + + + + | SOURCE BODY | Retention catheter | | | | | SITE | | | | | + + + + + + | CULTURE | Urine Culture | | | | | RESULT | | | | | | | Source...............: | | | | | | Retention catheter | | | | | | Culture: Final | | | | | | Report: No growth (< | | | | | | 1,000 col/ml) after | | | | | | 18-24 | | | | | | | | | | | | hours Final | | | | | | ReportComment: Test | | | | | | performed at [facility] | | | | | | [facility] | | | | | | Laboratory. | | | | + + + + + + + + | Specimen | + + | | + + + + + + + | Performing | Address | City/State/Zipcode | Phone Number | | Organization | | | | + + + + + | [facility] | [address] | [place] [address] | | | LAB-MICRO | | | | + + + + + BLOOD GASES, ARTERIAL (06/27/2006 4:15 AM PDT) + + + + + + | Component | Value | Ref Range | Performed | Pathologist | | | | | At | Signature | + + + + + + | PAT TEMP | 37.9 | Degree C | [facility] | | | ARTERIAL | | | DEPARTMENT | | | | | | OF | | | | | | PATHOLOGY | | + + + + + + | FIO2 | RA | | [facility] | | | ARTERIAL | | | DEPARTMENT | | | | | | OF | | | | | | PATHOLOGY | | + + + + + + | PH ARTERIAL | 7.47 (H) | 7.37 - 7.44 | [facility] | | | | | | DEPARTMENT | | | | | | OF | | | | | | PATHOLOGY | | + + + + + + | PCO2 | 33 | 32 - 43 mmHg | [facility] | | | ARTERIAL | | | DEPARTMENT | | | | | | OF | | | | | | PATHOLOGY | | + + + + + + | PO2 | 77 | 72 - 104 mmHg | [facility] | | | ARTERIAL | | | DEPARTMENT | | | | | | OF | | | | | | PATHOLOGY | | + + + + + + | BASE EXCESS | 0.3 | | [facility] | | | ARTERIAL | | | DEPARTMENT | | | | | | OF | | | | | | PATHOLOGY | | + + + + + + | HCO3 | 23 | 21 - 27 mmol/L | [facility] | | | ARTERIAL | | | DEPARTMENT | | | | | | OF | | | | | | PATHOLOGY | | + + + + + + | TOTAL CO2 | 24 | 22 - 28 mmol/L | [facility] | | | ARTERIAL | | | DEPARTMENT | | | | | | OF | | | | | | PATHOLOGY | | + + + + + + | O2 SAT, | 96.8 | 92.0 - 98.0 % | [facility] | | | ARTERIAL | | | DEPARTMENT | | | | | | OF | | | | | | PATHOLOGY | | + + + + + + + + | Specimen | + + | | + + + + + | Narrative | Performed At | + + + | Arterial Blood Gas | [facility] | | | DEPARTMENT OF | | | PATHOLOGY | + + + + + + + + | Performing | Address | City/State/Zipcode | Phone Number | | Organization | | | | + + + + + | [facility] DEPARTMENT OF | [address] | [place] [address] | | | PATHOLOGY | [address] | | | + + + + + | [facility] | [address] | [place] [address] | | | PATHOLOGY | [address] | | | + + + + + HEPATITIS B SURFACE AG (06/27/2006 4:00 AM PDT) + + + + + + | Component | Value | Ref Range | Performed | Pathologist | | | | | At | Signature | + + + + + + | HEPATITIS B | NegativeComment: | Negative | | | | SURFACE | Test performed by [facility] | | | | | [facility], [facility] | [facility] | | | | | | Laboratories. | | | | + + + + + + + + | Specimen | + + | | + + + + + + + | Performing | Address | City/State/Zipcode | Phone Number | | Organization | | | | + + + + + | [facility] | [address] | [place] [address] | | | LABORATORY | | | | + + + + + HEPATITIS B SURFACE AB (06/27/2006 4:00 AM PDT) + + + + + + | Component | Value | Ref Range | Performed | Pathologist | | | | | At | Signature | + + + + + + | HEP B | NegativeComment: | Negative | | | | SURFACE AB | Test performed by [facility] | | | | | [facility] | [facility] | | | | | | Laboratories. | | | | + + + + + + + + | Specimen | + + | | + + + + + + + | Performing | Address | City/State/Zipcode | Phone Number | | Organization | | | | + + + + + | [facility] | [address] | [place] [address] | | | LABORATORY | | | | + + + + + HEPATITIS C AB (06/27/2006 4:00 AM PDT) + + + + + + | Component | Value | Ref Range | Performed | Pathologist | | | | | At | Signature | + + + + + + | HEPATITIS C | NegativeComment: | Negative | | | | AB | Test performed by [facility] | | | | | | [facility] | | | | | | Laboratories. | | | | + + + + + + + + | Specimen | + + | | + + + + + + + | Performing | Address | City/State/Zipcode | Phone Number | | Organization | | | | + + + + + | [facility] | [address] | [place] [address] | | | LABORATORY | | | | + + + + + CULT, BLOOD BACTI & EDITH (06/27/2006 4:00 AM PDT) + + + + + + | Component | Value | Ref Range | Performed | Pathologist | | | | | At | Signature | + + + + + + | SOURCE BODY | Right Peripheral | | | | | SITE | Antecubital | | | | + + + + + + | CULTURE | Blood Culture | | | | | RESULT | | | | | | | Source.................. | | | | | | : Right Peripheral | | | | | | Antecubital | | | | | | Result.................. | | | | | | . Final: No growth at 5 | | | | | | days.Comment: Test | | | | | | performed at [facility] | | | | | | [facility] | | | | | | Laboratory. | | | | + + + + + + + + | Specimen | + + | | + + + + + + + | Performing | Address | City/State/Zipcode | Phone Number | | Organization | | | | + + + + + | [facility] | [address] | [place] [address] | | | LAB-MICRO | | | | + + + + + ACETAMINOPHEN (06/27/2006 4:00 AM PDT) + + + + + + | Component | Value | Ref Range | Performed | Pathologist | | | | | At | Signature | + + + + + + | ACETAMINOPH | < 10.0 (L) | 10.0 - 30.0 | [facility] | | | EN | | ug/mL | DEPARTMENT | | | CONCENTRATI | | | OF | | | ON | | | PATHOLOGY | | + + + + + + + + | Specimen | + + | | + + + + + | Narrative | Performed At | + + + | POS Checked and phoned. Readback. | [facility] | | | DEPARTMENT OF | | | PATHOLOGY | + + + + + + + + | Performing | Address | City/State/Zipcode | Phone Number | | Organization | | | | + + + + + | [facility] | [address] | [place] [address] | | | PATHOLOGY | [address] | | | + + + + + | [facility] | [facility] | [place] [address] | | | PATHOLOGY | [address] | | | + + + + + MAGNESIUM, PLASMA (06/27/2006 4:00 AM PDT) + +-------+ + + + | Component | Value | Ref Range | Performed | Pathologist | | | | | At | Signature | + +-------+ + + + | MAGNESIUM,P | 2.0 | 1.8 - 2.5 mg/dL | [facility] | | | LASMA | | | DEPARTMENT | | | | | | OF | | | | | | PATHOLOGY | | + +-------+ + + + + + | Specimen | + + | | + + + + + + + | Performing | Address | City/State/Zipcode | Phone Number | | Organization | | | | + + + + + | [facility] DEPARTMENT OF | [address] | [place] [address] | | | PATHOLOGY | [address] | | | + + + + + | [facility] DEPARTMENT OF | [address] | [place] [address] | | | PATHOLOGY | [address] | | | + + + + + PHOSPHORUS, PLASMA (06/27/2006 4:00 AM PDT) + + + + + + | Component | Value | Ref Range | Performed | Pathologist | | | | | At | Signature | + + + + + + | PHOSPHORUS, | < 0.5 (*) | 2.4 - 4.7 mg/dL | [facility] | | | PLASMA | | | DEPARTMENT | | | (LAB) | | | OF | | | | | | PATHOLOGY | | + + + + + + + + | Specimen | + + | | + + + + + + + | Performing | Address | City/State/Zipcode | Phone Number | | Organization | | | | + + + + + | [facility] DEPARTMENT OF | [address] | [place] [address] | | | PATHOLOGY | [address] | | | + + + + + | [facility] DEPARTMENT OF | [address] [place] [address] | [place] [address] | | | PATHOLOGY | [address] | | | + + + + + COMP METABOLIC SET (06/27/2006 4:00 AM PDT) + +---------+ + + + | Component | Value | Ref Range | Performed | Pathologist | | | | | At | Signature | + +---------+ + + + | GLUCOSE, | 90 | 65 - 110 mg/dL | [facility] | | | PLASMA | | | DEPARTMENT | | | (LAB) | | | OF | | | | | | PATHOLOGY | | + +---------+ + + + | BUN, PLASMA | 6 | 6 - 20 mg/dL | [facility] | | | (LAB) | | | DEPARTMENT | | | | | | OF | | | | | | PATHOLOGY | | + +---------+ + + + | CREATININE | 0.8 | 0.6 - 1.1 mg/dL | [facility] | | | PLASMA | | | DEPARTMENT | | | (LAB) | | | OF | | | | | | PATHOLOGY | | + +---------+ + + + | TOTAL | 5.2 (L) | 6.1 - 7.9 g/dL | [facility] | | | PROTEIN, | | | DEPARTMENT | | | PLASMA | | | OF | | | (LAB) | | | PATHOLOGY | | + +---------+ + + + | ALBUMIN, | 2.9 (L) | 3.5 - 4.7 g/dL | [facility] | | | PLASMA | | | DEPARTMENT | | | (LAB) | | | OF | | | | | | PATHOLOGY | | + +---------+ + + + | CALCIUM, | 7.8 (L) | 8.5 - 10.5 | [facility] | | | PLASMA | | mg/dL | DEPARTMENT | | | (LAB) | | | OF | | | | | | PATHOLOGY | | + +---------+ + + + | BILIRUBIN | 0.7 | 0.3 - 1.2 mg/dL | [facility] | | | TOTAL | | | DEPARTMENT | | | | | | OF | | | | | | PATHOLOGY | | + +---------+ + + + | ALK PHOS | 58 | 42 - 98 U/L | [facility] | | | | | | DEPARTMENT | | | | | | OF | | | | | | PATHOLOGY | | + +---------+ + + + | AST(SGOT) | 62 (H) | 15 - 41 U/L | [facility] | | | | | | DEPARTMENT | | | | | | OF | | | | | | PATHOLOGY | | + +---------+ + + + | SODIUM, | 137 | 136 - 145 | [facility] | | | PLASMA | | mmol/L | DEPARTMENT | | | (LAB) | | | OF | | | | | | PATHOLOGY | | + +---------+ + + + | POTASSIUM, | 3.0 (L) | 3.5 - 5.1 | [facility] | | | PLASMA | | mmol/L | DEPARTMENT | | | (LAB) | | | OF | | | | | | PATHOLOGY | | + +---------+ + + + | CHLORIDE, | 103 | 98 - 107 mmol/L | [facility] | | | PLASMA | | | DEPARTMENT | | | (LAB) | | | OF | | | | | | PATHOLOGY | | + +---------+ + + + | TOTAL CO2, | 25 | 23 - 29 mmol/L | [facility] | | | PLASMA | | | DEPARTMENT | | | (LAB) | | | OF | | | | | | PATHOLOGY | | + +---------+ + + + | ALT (SGPT) | 122 (H) | 13 - 48 U/L | [facility] | | | | | | DEPARTMENT | | | | | | OF | | | | | | PATHOLOGY | | + +---------+ + + + + + | Specimen | + + | | + + + + + + + | Performing | Address | City/State/Zipcode | Phone Number | | Organization | | | | + + + + + | [facility] DE[facility]MENT [facility] | [address] | [place] [address] | | | PATHOLOGY | [address] | | | + + + + + | [facility] | [address] | [place] [address] | | | PATHOLOGY | [address] | | | + + + + + PROTHROMBIN TIME (06/27/2006 4:00 AM PDT) + + + + + + | Component | Value | Ref Range | Performed | Pathologist | | | | | At | Signature | + + + + + + | INR | 1.22 (H)Comment: | 0.90 - 1.20 INR | [facility] | | | | PT INR Therapeutic | | DEPARTMENT | | | | ranges for full | | OF | | | | anticoagulation: | | PATHOLOGY | | | | INR for | | | | | | Venous Thromboembolism | | | | | | | | | | | | (2.0-3.0)INR | | | | | | INR for most | | | | | | patients with mech. | | | | | | valves (2.5-3.5)INR | | | | + + + + + + + + | Specimen | + + | | + + + + + + + | Performing | Address | City/State/Zipcode | Phone Number | | Organization | | | | + + + + + | [facility] | [address] | [place] [address] | | | PATHOLOGY | [address] | | | + + + + + | [facility] DEPARTMENT [facility] | [address] | [place] [address] | | | PATHOLOGY | [address] | | | + + + + + CBC ONLY WITH PLATELET (06/27/2006 4:00 AM PDT) + + + + + + | Component | Value | Ref Range | Performed | Pathologist | | | | | At | Signature | + + + + + + | WHITE CELL | 12.9 (H) | 4.4 - 11.0 K/cu | [facility] | | | COUNT | | mm | DEPARTMENT | | | | | | OF | | | | | | PATHOLOGY | | + + + + + + | RED CELL | 3.94 (L) | 4.00 - 5.20 | [facility] | | | COUNT | | M/cu mm | DEPARTMENT | | | | | | OF | | | | | | PATHOLOGY | | + + + + + + | HEMOGLOBIN | 11.9 (L) | 12.0 - 16.0 | [facility] | | | | | g/dL | DEPARTMENT | | | | | | OF | | | | | | PATHOLOGY | | + + + + + + | HEMATOCRIT | 34.2 (L) | 36.0 - 46.0 % | [facility] | | | | | | DEPARTMENT | | | | | | OF | | | | | | PATHOLOGY | | + + + + + + | MCV | 86.8 | 80.0 - 96.0 fL | [facility] | | | | | | DEPARTMENT | | | | | | OF | | | | | | PATHOLOGY | | + + + + + + | MCHC | 34.7 | 33.4 - 35.5 | [facility] | | | | | g/dL | DEPARTMENT | | | | | | OF | | | | | | PATHOLOGY | | + + + + + + | RDW | 13.0 | 11.5 - 15.0 % | [facility] | | | | | | DEPARTMENT | | | | | | OF | | | | | | PATHOLOGY | | + + + + + + | PLATELET | 305 | 150 - 400 K/cu | [facility] | | | COUNT | | mm | DEPARTMENT | | | | | | OF | | | | | | PATHOLOGY | | + + + + + + + + | Specimen | + + | | + + + + + + + | Performing | Address | City/State/Zipcode | Phone Number | | Organization | | | | + + + + + | [facility] DE[facility]MENT [facility] | [address] | [place] [address] | | | PATHOLOGY | [address] | | | + + + + + | [facility] | [address] | [place] [address] | | | PATHOLOGY | [address] | | | + + + + + BLOOD GASES, ARTERIAL (06/26/2006 10:20 PM PDT) + +-------+ + + + | Component | Value | Ref Range | Performed | Pathologist | | | | | At | Signature | + +-------+ + + + | PAT TEMP | 37.0 | Degree C | [facility] | | | ARTERIAL | | | DEPARTMENT | | | | | | OF | | | | | | PATHOLOGY | | + +-------+ + + + | FIO2 | RA | | [facility] | | | ARTERIAL | | | DEPARTMENT | | | | | | OF | | | | | | PATHOLOGY | | + +-------+ + + + | PH ARTERIAL | 7.38 | 7.37 - 7.44 | [facility] | | | | | | DEPARTMENT | | | | | | OF | | | | | | PATHOLOGY | | + +-------+ + + + | PCO2 | 42 | 32 - 43 mmHg | [facility] | | | ARTERIAL | | | DEPARTMENT | | | | | | OF | | | | | | PATHOLOGY | | + +-------+ + + + | PO2 | 79 | 72 - 104 mmHg | [facility] | | | ARTERIAL | | | DEPARTMENT | | | | | | OF | | | | | | PATHOLOGY | | + +-------+ + + + | BASE EXCESS | -0.3 | | [facility] | | | ARTERIAL | | | DEPARTMENT | | | | | | OF | | | | | | PATHOLOGY | | + +-------+ + + + | HCO3 | 24 | 21 - 27 mmol/L | [facility] | | | ARTERIAL | | | DEPARTMENT | | | | | | OF | | | | | | PATHOLOGY | | + +-------+ + + + | TOTAL CO2 | 26 | 22 - 28 mmol/L | [facility] | | | ARTERIAL | | | DEPARTMENT | | | | | | OF | | | | | | PATHOLOGY | | + +-------+ + + + | O2 SAT, | 95.7 | 92.0 - 98.0 % | [facility] | | | ARTERIAL | | | DEPARTMENT | | | | | | OF | | | | | | PATHOLOGY | | + +-------+ + + + + + | Specimen | + + | | + + + + + | Narrative | Performed At | + + + | Arterial Blood Gas | [facility] | | | DEPARTMENT OF | | | PATHOLOGY | + + + + + + + + | Performing | Address | City/State/Zipcode | Phone Number | | Organization | | | | + + + + + | [facility] DEPARTMENT [facility] | [address] | [place] [address] | | | PATHOLOGY | [address] | | | + + + + + | [facility] DEPARTMENT OF | [address] | [place] [address] | | | PATHOLOGY | [address] | | | + + + + + CBC ONLY WITH PLATELET (06/26/2006 9:00 PM PDT) + + + + + + | Component | Value | Ref Range | Performed | Pathologist | | | | | At | Signature | + + + + + + | WHITE CELL | 10.2 | 4.4 - 11.0 K/cu | [facility] | | | COUNT | | mm | DEPARTMENT | | | | | | OF | | | | | | PATHOLOGY | | + + + + + + | RED CELL | 3.95 (L) | 4.00 - 5.20 | [facility] | | | COUNT | | M/cu mm | DEPARTMENT | | | | | | OF | | | | | | PATHOLOGY | | + + + + + + | HEMOGLOBIN | 11.9 (L) | 12.0 - 16.0 | [facility] | | | | | g/dL | DEPARTMENT | | | | | | OF | | | | | | PATHOLOGY | | + + + + + + | HEMATOCRIT | 34.1 (L) | 36.0 - 46.0 % | [facility] | | | | | | DEPARTMENT | | | | | | OF | | | | | | PATHOLOGY | | + + + + + + | MCV | 86.3 | 80.0 - 96.0 fL | [facility] | | | | | | DEPARTMENT | | | | | | OF | | | | | | PATHOLOGY | | + + + + + + | MCHC | 34.8 | 33.4 - 35.5 | [facility] | | | | | g/dL | DEPARTMENT | | | | | | OF | | | | | | PATHOLOGY | | + + + + + + | RDW | 13.2 | 11.5 - 15.0 % | [facility] | | | | | | DEPARTMENT | | | | | | OF | | | | | | PATHOLOGY | | + + + + + + | PLATELET | 247 | 150 - 400 K/cu | [facility] | | | COUNT | | mm | DEPARTMENT | | | | | | OF | | | | | | PATHOLOGY | | + + + + + + + + | Specimen | + + | | + + + + + + + | Performing | Address | City/State/Zipcode | Phone Number | | Organization | | | | + + + + + | [facility] DE[facility]MENT [facility] | [facility] | [place] [address] | | | PATHOLOGY | [address] | | | + + + + + | [facility] DEPARTMENT [facility] | [address] | [place] [address] | | | PATHOLOGY | [address] | | | + + + + + CHEST 1 VIEW (06/26/2006 4:37 PM PDT) + + + + + + | Component | Value | Ref Range | Performed | Pathologist | | | | | At | Signature | + + + + + + | CHEST, 1 | Radiologist 1: | | | | | VIEW | ANGE, | | | | | | ISAI-Radiologist 2: | | | | | | ABBEY MAURER CHEST: | | | | | | 8.27.2005 COMPARISON: | | | | | | None available. | | | | | | FINDINGS: There is | | | | | | minimal bibasilar | | | | | | subsegmental | | | | | | atelectasis,left greater | | | | | | than right. The lungs | | | | | | are otherwise clear. | | | | | | Thecardiac and | | | | | | mediastinal contours are | | | | | | normal. The | | | | | | osseousstructures are | | | | | | unremarkable. | | | | | | IMPRESSION: Minimal | | | | | | bibasilar subsegmental | | | | | | atelectasis, left | | | | | | greater thanright. | | | | | | Otherwise clear lungs. | | | | | | | | | | + + + + + + + + | Specimen | + + | | + + + + + | Narrative | Performed At | + + + | Ordered by RIVKA MORTON | | + + + + +---------+ + + | Performing | Address | City/State/Zipcode | Phone Number | | Organization | | | | + +---------+ + + | [facility] DEPARTMENT OF | | | | | RADIOLOGY | | | | + +---------+ + + BLOOD GASES, ARTERIAL (06/26/2006 4:30 PM PDT) + + + + + + | Component | Value | Ref Range | Performed | Pathologist | | | | | At | Signature | + + + + + + | PAT TEMP | 37.0 | Degree C | [facility] | | | ARTERIAL | | | DEPARTMENT | | | | | | OF | | | | | | PATHOLOGY | | + + + + + + | FIO2 | 3L | | [facility] | | | ARTERIAL | | | DEPARTMENT | | | | | | OF | | | | | | PATHOLOGY | | + + + + + + | PH ARTERIAL | 7.29 (L) | 7.37 - 7.44 | [facility] | | | | | | DEPARTMENT | | | | | | OF | | | | | | PATHOLOGY | | + + + + + + | PCO2 | 58 (H) | 32 - 43 mmHg | [facility] | | | ARTERIAL | | | DEPARTMENT | | | | | | OF | | | | | | PATHOLOGY | | + + + + + + | PO2 | 183 (H) | 72 - 104 mmHg | [facility] | | | ARTERIAL | | | DEPARTMENT | | | | | | OF | | | | | | PATHOLOGY | | + + + + + + | BASE EXCESS | 0.0 | | [facility] | | | ARTERIAL | | | DEPARTMENT | | | | | | OF | | | | | | PATHOLOGY | | + + + + + + | HCO3 | 27 | 21 - 27 mmol/L | [facility] | | | ARTERIAL | | | DEPARTMENT | | | | | | OF | | | | | | PATHOLOGY | | + + + + + + | TOTAL CO2 | 29 (H) | 22 - 28 mmol/L | [facility] | | | ARTERIAL | | | DEPARTMENT | | | | | | OF | | | | | | PATHOLOGY | | + + + + + + | O2 SAT, | 99.3 (H) | 92.0 - 98.0 % | [facility] | | | ARTERIAL | | | DEPARTMENT | | | | | | OF | | | | | | PATHOLOGY | | + + + + + + + + | Specimen | + + | | + + + + + | Narrative | Performed At | + + + | Arterial Blood Gas | [facility] | | | DEPARTMENT OF | | | PATHOLOGY | + + + + + + + + | Performing | Address | City/State/Zipcode | Phone Number | | Organization | | | | + + + + + | [facility] | [address] | [place] [address] | | | PATHOLOGY | [address] | | | + + + + + | [facility] | [address] | [place] [address] | | | PATHOLOGY | [address] | | | + + + + + FACTOR V ACTIVITY (06/26/2006 4:15 PM PDT) + + + + + + | Component | Value | Ref Range | Performed | Pathologist | | | | | At | Signature | + + + + + + | FACTOR V | 0.71Comment: Published | 0.60 - 1.50 | [facility] | | | ACTIVITY, | reference ranges for | U/mL | DEPARTMENT | | | PLASMA | children less than 6 mos | | OF | | | | can befound in the | | PATHOLOGY | | | | Hemostasis Section | | | | | | general instructions of | | | | | | the [facility] LabManual: | | | | | | [email or web address] | | | | | [email or web address] | | | | + + + + + + | FACTOR V | No Activity Increase | | [facility] | | | ACTIVITY | with Dilution | | DEPARTMENT | | | COMMENT | | | OF | | | | | | PATHOLOGY | | + + + + + + + + | Specimen | + + | | + + + + + + + | Performing | Address | City/State/Zipcode | Phone Number | | Organization | | | | + + + + + | [facility] | [address] | [place] [address] | | | PATHOLOGY | [address] | | | + + + + + | [facility] | [address] | [place] [address] | | | PATHOLOGY | [address] | | | + + + + + TYPE AND SCREEN (06/26/2006 4:15 PM PDT) + +-------+ + + + | Component | Value | Ref Range | Performed | Pathologist | | | | | At | Signature | + +-------+ + + + | ABO GROUP | B | | [facility] | | | | | | DEPARTMENT | | | | | | OF | | | | | | PATHOLOGY | | + +-------+ + + + | RH TYPE | POS | | [facility] | | | | | | DEPARTMENT | | | | | | OF | | | | | | PATHOLOGY | | + +-------+ + + + | ANTIBODY | NEG | | [facility] | | | SCREEN | | | DEPARTMENT | | | | | | OF | | | | | | PATHOLOGY | | + +-------+ + + + + + | Specimen | + + | | + + + + + | Narrative | Performed At | + + + | Instrument Testing Instrument Testing | [facility] | | | DEPARTMENT OF | | | PATHOLOGY | + + + + + + + + | Performing | Address | City/State/Zipcode | Phone Number | | Organization | | | | + + + + + | [facility] | [address] | [place] [address] | | | PATHOLOGY | [address] | | | + + + + + | [facility] | [address] | [place] [address] | | | PATHOLOGY | [address] | | | + + + + + CBC, WITH DIFFERENTIAL (06/26/2006 4:15 PM PDT) + +-------+ + + + | Component | Value | Ref Range | Performed | Pathologist | | | | | At | Signature | + +-------+ + + + | WHITE CELL | 8.3 | 4.4 - 11.0 K/cu | [facility] | | | COUNT | | mm | DEPARTMENT | | | | | | OF | | | | | | PATHOLOGY | | + +-------+ + + + | RED CELL | 4.13 | 4.00 - 5.20 | [facility] | | | COUNT | | M/cu mm | DEPARTMENT | | | | | | OF | | | | | | PATHOLOGY | | + +-------+ + + + | HEMOGLOBIN | 12.2 | 12.0 - 16.0 | [facility] | | | | | g/dL | DEPARTMENT | | | | | | OF | | | | | | PATHOLOGY | | + +-------+ + + + | HEMATOCRIT | 36.2 | 36.0 - 46.0 % | [facility] | | | | | | DEPARTMENT | | | | | | OF | | | | | | PATHOLOGY | | + +-------+ + + + | MCV | 87.5 | 80.0 - 96.0 fL | [facility] | | | | | | DEPARTMENT | | | | | | OF | | | | | | PATHOLOGY | | + +-------+ + + + | MCHC | 33.8 | 33.4 - 35.5 | [facility] | | | | | g/dL | DEPARTMENT | | | | | | OF | | | | | | PATHOLOGY | | + +-------+ + + + | RDW | 13.4 | 11.5 - 15.0 % | [facility] | | | | | | DEPARTMENT | | | | | | OF | | | | | | PATHOLOGY | | + +-------+ + + + | PLATELET | 328 | 150 - 400 K/cu | [facility] | | | COUNT | | mm | DEPARTMENT | | | | | | OF | | | | | | PATHOLOGY | | + +-------+ + + + + + | Specimen | + + | | + + + + + + + | Performing | Address | City/State/Zipcode | Phone Number | | Organization | | | | + + + + + | [facility] DEPARTMENT [facility] | [facility] | [place] [address] | | | PATHOLOGY | [address] | | | + + + + + | [facility] DEPARTMENT OF | [facility] | [place] [address] | | | PATHOLOGY | [address] | | | + + + + + DIFFERENTIAL (06/26/2006 4:15 PM PDT) + +--------+ + + + | Component | Value | Ref Range | Performed | Pathologist | | | | | At | Signature | + +--------+ + + + | NEUTROPHIL | 73 (H) | 50 - 70 % | [facility] | | | % | | | DEPARTMENT | | | | | | OF | | | | | | PATHOLOGY | | + +--------+ + + + | LYMPHOCYTE | 21 | 18 - 42 % | [facility] | | | % | | | DEPARTMENT | | | | | | OF | | | | | | PATHOLOGY | | + +--------+ + + + | MONOCYTE % | 5 | 2 - 8 % | [facility] | | | | | | DEPARTMENT | | | | | | OF | | | | | | PATHOLOGY | | + +--------+ + + + | EOS % | 0 (L) | 1 - 3 % | [facility] | | | | | | DEPARTMENT | | | | | | OF | | | | | | PATHOLOGY | | + +--------+ + + + | BASO % | 0 | <3 % | [facility] | | | | | | DEPARTMENT | | | | | | OF | | | | | | PATHOLOGY | | + +--------+ + + + | NEUTROPHIL | 6.1 | 1.8 - 7.7 K/cu | [facility] | | | # | | mm | DEPARTMENT | | | | | | OF | | | | | | PATHOLOGY | | + +--------+ + + + | LYMPHOCYTE | 1.7 | 1.0 - 4.8 K/cu | [facility] | | | # | | mm | DEPARTMENT | | | | | | OF | | | | | | PATHOLOGY | | + +--------+ + + + | MONOCYTE # | 0.4 | 0.1 - 0.6 K/cu | [facility] | | | | | mm | DEPARTMENT | | | | | | OF | | | | | | PATHOLOGY | | + +--------+ + + + | EOS # | 0.0 | <0.6 K/cu mm | [facility] | | | | | | DEPARTMENT | | | | | | OF | | | | | | PATHOLOGY | | + +--------+ + + + | BASO # | 0.0 | <0.3 | [facility] | | | | | | DEPARTMENT | | | | | | OF | | | | | | PATHOLOGY | | + +--------+ + + + + + | Specimen | + + | | + + + + + + + | Performing | Address | City/State/Zipcode | Phone Number | | Organization | | | | + + + + + | [facility] DEPARTMENT OF | [address] | [place] [address] | | | PATHOLOGY | [address] | | | + + + + + | [facility] | [address] | [place] [address] | | | PATHOLOGY | [address] | | | + + + + + PROTHROMBIN TIME (06/26/2006 4:15 PM PDT) + + + + + + | Component | Value | Ref Range | Performed | Pathologist | | | | | At | Signature | + + + + + + | INR | 1.14Comment: | 0.90 - 1.20 INR | [facility] | | | | PT INR Therapeutic | | DEPARTMENT | | | | ranges for full | | OF | | | | anticoagulation: | | PATHOLOGY | | | | INR for | | | | | | Venous Thromboembolism | | | | | | | | | | | | (2.0-3.0)INR | | | | | | INR for most | | | | | | patients with mech. | | | | | | valves (2.5-3.5)INR | | | | + + + + + + + + | Specimen | + + | | + + + + + + + | Performing | Address | City/State/Zipcode | Phone Number | | Organization | | | | + + + + + | [facility] | [address] | [place] [address] | | | PATHOLOGY | [address] | | | + + + + + | [facility] DEPARTMENT OF | [address] | [place] [address] | | | PATHOLOGY | [address] | | | + + + + + APTT (ACT. PART. THROMBO TIME) (06/26/2006 4:15 PM PDT) + + + + + + | Component | Value | Ref Range | Performed | Pathologist | | | | | At | Signature | + + + + + + | APTT | 32.0Comment: | 26.0 - 36.0 | [facility] | | | | APTT Therapeutic Range | seconds | DEPARTMENT | | | | | | OF | | | | | | PATHOLOGY | | | | (75-120)sec | | | | | | Heparin levels | | | | | | of 0.35-0.7 U/mL | | | | + + + + + + + + | Specimen | + + | | + + + + + + + | Performing | Address | City/State/Zipcode | Phone Number | | Organization | | | | + + + + + | [facility] | [address] | [place] [address] | | | PATHOLOGY | [address] | | | + + + + + | [facility] | [facility] | [place] [address] | | | PATHOLOGY | [address] | | | + + + + + ALCOHOL SCRN, SERUM (06/26/2006 4:15 PM PDT) + + + + + + | Component | Value | Ref Range | Performed | Pathologist | | | | | At | Signature | + + + + + + | ETHANOL | Negative | mg/dL | [facility] | | | (ALCOHOL) | | | DEPARTMENT | | | | | | OF | | | | | | PATHOLOGY | | + + + + + + + + | Specimen | + + | | + + + + + + + | Performing | Address | City/State/Zipcode | Phone Number | | Organization | | | | + + + + + | [facility] DEPARTMENT OF | [address] | [place] [address] | | | PATHOLOGY | [address] | | | + + + + + | [facility] DEPARTMENT | [address] | [place] [address] | | | PATHOLOGY | [address] | | | + + + + + PHOSPHORUS, PLASMA (06/26/2006 4:15 PM PDT) + +-------+ + + + | Component | Value | Ref Range | Performed | Pathologist | | | | | At | Signature | + +-------+ + + + | PHOSPHORUS, | 3.1 | 2.4 - 4.7 mg/dL | [facility] | | | PLASMA | | | DEPARTMENT | | | (LAB) | | | OF | | | | | | PATHOLOGY | | + +-------+ + + + + + | Specimen | + + | | + + + + + + + | Performing | Address | City/State/Zipcode | Phone Number | | Organization | | | | + + + + + | [facility] | [address] | [place] [address] | | | PATHOLOGY | [address] | | | + + + + + | [facility] | [facility] | [place] [address] | | | PATHOLOGY | [address] | | | + + + + + MAGNESIUM, PLASMA (06/26/2006 4:15 PM PDT) + +-------+ + + + | Component | Value | Ref Range | Performed | Pathologist | | | | | At | Signature | + +-------+ + + + | MAGNESIUM,P | 2.3 | 1.8 - 2.5 mg/dL | [facility] | | | LASMA | | | DEPARTMENT | | | | | | OF | | | | | | PATHOLOGY | | + +-------+ + + + + + | Specimen | + + | | + + + + + + + | Performing | Address | City/State/Zipcode | Phone Number | | Organization | | | | + + + + + | [facility] | [address] | [place] [address] | | | PATHOLOGY | [address] | | | + + + + + | [facility] DEPARTMENT | [address] | [place], [place] [address] | | | PATHOLOGY | [address] | | | + + + + + LIVER SET (06/26/2006 4:15 PM PDT) + +---------+ + + + | Component | Value | Ref Range | Performed | Pathologist | | | | | At | Signature | + +---------+ + + + | ALBUMIN, | 3.2 (L) | 3.5 - 4.7 g/dL | [facility] | | | PLASMA | | | DEPARTMENT | | | (LAB) | | | OF | | | | | | PATHOLOGY | | + +---------+ + + + | BILIRUBIN | 0.5 | 0.3 - 1.2 mg/dL | [facility] | | | TOTAL | | | DEPARTMENT | | | | | | OF | | | | | | PATHOLOGY | | + +---------+ + + + | BILIRUBIN | < 0.1 | <0.4 mg/dL | [facility] | | | DIRECT | | | DEPARTMENT | | | | | | OF | | | | | | PATHOLOGY | | + +---------+ + + + | ALK PHOS | 65 | 42 - 98 U/L | [facility] | | | | | | DEPARTMENT | | | | | | OF | | | | | | PATHOLOGY | | + +---------+ + + + | AST(SGOT) | 128 (H) | 15 - 41 U/L | [facility] | | | | | | DEPARTMENT | | | | | | OF | | | | | | PATHOLOGY | | + +---------+ + + + | ALT (SGPT) | 186 (H) | 13 - 48 U/L | [facility] | | | | | | DEPARTMENT | | | | | | OF | | | | | | PATHOLOGY | | + +---------+ + + + | TOTAL | 5.7 (L) | 6.1 - 7.9 g/dL | [facility] | | | PROTEIN, | | | DEPARTMENT | | | PLASMA | | | OF | | | (LAB) | | | PATHOLOGY | | + +---------+ + + + + + | Specimen | + + | | + + + + + + + | Performing | Address | City/State/Zipcode | Phone Number | | Organization | | | | + + + + + | [facility] DEPARTMENT OF | [address] | [place] [address] | | | PATHOLOGY | [address] | | | + + + + + | [facility] DEPARTMENT OF | [address] | [place] [address] | | | PATHOLOGY | [address] | | | + + + + + ACETAMINOPHEN (06/26/2006 4:15 PM PDT) + + + + + + | Component | Value | Ref Range | Performed | Pathologist | | | | | At | Signature | + + + + + + | ACETAMINOPH | 64.9 (H) | 10.0 - 30.0 | [facility] | | | EN | | ug/mL | DEPARTMENT | | | CONCENTRATI | | | OF | | | ON | | | PATHOLOGY | | + + + + + + + + | Specimen | + + | | + + + + + + + | Performing | Address | City/State/Zipcode | Phone Number | | Organization | | | | + + + + + | [facility] | [address] | [place] [address] | | | PATHOLOGY | [address] | | | + + + + + | [facility] | [address] | [place] [address] | | | PATHOLOGY | [address] | | | + + + + + BASIC METABOLIC SET (06/26/2006 4:15 PM PDT) + +---------+ + + + | Component | Value | Ref Range | Performed | Pathologist | | | | | At | Signature | + +---------+ + + + | GLUCOSE, | 107 | 65 - 110 mg/dL | [facility] | | | PLASMA | | | DEPARTMENT | | | (LAB) | | | OF | | | | | | PATHOLOGY | | + +---------+ + + + | BUN, PLASMA | 11 | 6 - 20 mg/dL | [facility] | | | (LAB) | | | DEPARTMENT | | | | | | OF | | | | | | PATHOLOGY | | + +---------+ + + + | CREATININE | 0.7 | 0.6 - 1.1 mg/dL | [facility] | | | PLASMA | | | DEPARTMENT | | | (LAB) | | | OF | | | | | | PATHOLOGY | | + +---------+ + + + | SODIUM, | 131 (L) | 136 - 145 | [facility] | | | PLASMA | | mmol/L | DEPARTMENT | | | (LAB) | | | OF | | | | | | PATHOLOGY | | + +---------+ + + + | POTASSIUM, | 3.9 | 3.5 - 5.1 | [facility] | | | PLASMA | | mmol/L | DEPARTMENT | | | (LAB) | | | OF | | | | | | PATHOLOGY | | + +---------+ + + + | CHLORIDE, | 94 (L) | 98 - 107 mmol/L | [facility] | | | PLASMA | | | DEPARTMENT | | | (LAB) | | | OF | | | | | | PATHOLOGY | | + +---------+ + + + | TOTAL CO2, | 26 | 23 - 29 mmol/L | [facility] | | | PLASMA | | | DEPARTMENT | | | (LAB) | | | OF | | | | | | PATHOLOGY | | + +---------+ + + + | CALCIUM, | 8.1 (L) | 8.5 - 10.5 | [facility] | | | PLASMA | | mg/dL | DEPARTMENT | | | (LAB) | | | OF | | | | | | PATHOLOGY | | + +---------+ + + + + + | Specimen | + + | | + + + + + + + | Performing | Address | City/State/Zipcode | Phone Number | | Organization | | | | + + + + + | [facility] | [address] | [place] [address] | | | PATHOLOGY | [address] | | | + + + + + | [facility] | [address] [place] [address] | [place] [address] | | | PATHOLOGY | [address] | | | + + + + + SALICYLATE (06/26/2006 4:15 PM PDT) + + + + + + | Component | Value | Ref Range | Performed | Pathologist | | | | | At | Signature | + + + + + + | SALICYLATE | < 4.0 (L) | 10.0 - 25.0 | [facility] | | | CONCENTRATI | | mg/dL | DEPARTMENT | | | ON | | | OF | | | | | | PATHOLOGY | | + + + + + + + + | Specimen | + + | | + + + + + + + | Performing | Address | City/State/Zipcode | Phone Number | | Organization | | | | + + + + + | [facility] | [address] | [place] [address] | | | PATHOLOGY | [address] | | | + + + + + | [facility] | [address] | [place] [address] | | | PATHOLOGY | [address] | | | + + + + + documented in this encounter Visit Diagnoses Not on filedocumented in this encounter"
--- OUTSIDE RECORDS SUMMARY | ~2019-09-28 | XMS | Encounter Summary ---
Demographics + + + | Address | [address] | | | [place] [address] | + + + | Home Phone | | + + + | Preferred Language | Unknown | + + + | Marital Status | Single | + + + | Druze Affiliation | NON | + + + | Race | White | + + + | Ethnic Group | Not or | + + + Author + + + | Author | [facility] | + + + | Organization | [facility] | + + + | Address | Unknown | + + + | Phone | Unavailable | + + + Support + + +---------+ + | Name | Relationship | Address | Phone | + + +---------+ + | Royce Menchaca | ECON | Unknown | | + + +---------+ + Care Team Providers + +------+ + | Care Golf Coach Name | Role | Phone | + +------+ + | Miquel Calhoun MD | PCP | | + +------+ + Encounter Details +--------+ + + + + | Date | Type | Department | Care Team | Description | +--------+ + + + + | 11/12/ | Telephone | [facility] | Khushbu Cortez, | | | 2013 | | [facility] | [employer] [place], [place] | | | | | [address] | [address] | | | | | [address] | | | | | | [place] | | | | | | [place], [place] | | | | | | [address] | | | | | | [phone] | | | +--------+ + + + [...] as of this encounter Plan of Treatment Not on filedocumented as of this encounter Visit Diagnoses Not on filedocumented in this encounter"
--- OUTSIDE RECORDS SUMMARY | ~2019-09-28 | XMS | Encounter Summary ---
Demographics + + + | Address | [address] | | | [place] [address] | + + + | Home Phone | | + + + | Preferred Language | Unknown | + + + | Marital Status | | + + + | Restoration Affiliation | 1013 | + + + [...] Team Providers + +------+ + | Care Fryer Operator Name | Role | Phone | + +------+ + | Concepción Gallardo NP | PCP | | + +------+ + Encounter Details +--------+ + + + + | Date | Type | Department | Care Team | Description | +--------+ + + + + | 11/26/ | Emergency | [facility] | Garth Pedroza MD | Convulsions, | | 2016 | | MEDICAL CENTER | [address] | unspecified | | | | EMERGENCY CENTER | [place] [address] | convulsion type | | | | [address] | [phone] | ([facility]); Generalized | | | | [place], [place] | | weakness | | | | [address] | | | | | | [phone] | | | +--------+ + + + [...] + + + | Blood Pressure | 124/57 | 11/26/2015 1:13 PM | | | | | PST | | + + + + + | Pulse | 93 | 11/26/2015 1:13 PM | | | | | PST | | + + + + + | Temperature | 36.4 C (97.6 F) | 11/26/2015 1:13 PM | | | | | PST | | + + + + + | Respiratory Rate | 20 | 11/26/2015 1:13 PM | | | | | PST | | + + + + + | Oxygen Saturation | - | - | | + + + + + | Inhaled Oxygen | - | - | | | Concentration | | | | + + + + + | Weight | - | - | | + + + + + | Height | - | - | | + + + + + | Body Mass Index | - | - | | + [...] [place] | | | | | | [address] | | | | | | | | +--------+---------+ + + + documented as of this encounter Procedures + +--------+ + + + | Procedure Name | Priori | Date/Time | Associated Diagnosis | Comments | | | ty | | | | + +--------+ + + + | URINALYSIS, REFLEX | Routin | 11/26/2015 | | Results for this | | MICROSCOPIC AND/OR | e | 1:13 PM | | procedure are in the | | CULTURE | | PST | | results section. | + +--------+ + + + | HISTORICAL LAB PANEL | Routin | 11/26/2015 | | Results for this | | RESULT | e | 12:41 PM | | procedure are in the | | | | PST | | results section. | + +--------+ + + + | POC GLUCOSE | Routin | 11/26/2015 | | Results for this | | | e | 12:25 PM | | procedure are in the | | | | PST | | results section. | + +--------+ + + + documented in this encounter Results Urinalysis, Reflex Microscopic and/or Culture (11/26/2015 1:13 PM PST) + + + + + + | Component | Value | Ref Range | Performed | Pathologist | | | | | At | Signature | + + + + + + | Color | COLORLESSComment: | | EXTERNAL | | | | Testing performed at | | LAB | | | | [facility];[place] [address] | | | | + + + + + + | Clarity | CLEARComment: Testing | | EXTERNAL | | | | performed at [facility];[address] | | LAB | | | [address];[place] | | | | | | [address] | | | | + + + + + + | Specific | 1.008Comment: Testing | 1.002 - 1.030 | EXTERNAL | | | Perdido | performed at [facility];[address] | | LAB | | | [address];[place] | | | | | | [address] | | | | + + + + + + | Leukocyte | NEGATIVEComment: Testing | | EXTERNAL | | | Esterase, | performed at [facility];[address] | | LAB | | | Urine | [address];[place] | | | | | | [address] | | | | + + + + + + | Nitrite, | NEGATIVEComment: Testing | | EXTERNAL | | | Urine | performed at [facility];[address] | | LAB | | | | [address];[place] | | | | | | [address] | | | | + + + + + + | Urobilinoge | NORMALComment: Testing | mg/dL | EXTERNAL | | | n, Urine | performed at [facility];[address] | | LAB | | | | [address];[place] | | | | | | [address] | | | | + + + + + + | Protein, | NEGATIVEComment: Testing | mg/dL | EXTERNAL | | | Urine | performed at [facility];[address] | | LAB | | | | [address];[place] | | | | | | [address] | | | | + + + + + + | pH, Urine | 5.0Comment: Testing | 5.0 - 8.0 | EXTERNAL | | | | performed at [facility];[address] | | LAB | | | | [address];[place] | | | | | | [address] | | | | + + + + + + | Blood, | NEGATIVEComment: Testing | | EXTERNAL | | | Urine | performed at [facility];[address] | | LAB | | | | [address];[place] | | | | | | [address] | | | | + + + + + + | Ketones | NEGATIVEComment: Testing | mg/dL | EXTERNAL | | | | performed at [facility];[address] | | LAB | | | | [address];[place] | | | | | | [address] | | | | + + + + + + | Bilirubin, | NEGATIVEComment: Testing | | EXTERNAL | | | Urine | performed at [facility];[address] | | LAB | | | | [address];[place] | | | | | | [address] | | | | + + + + + + | Glucose, | NEGATIVEComment: Testing | mg/dL | EXTERNAL | | | Urine | performed at [facility];[address] | | LAB | | | | [address];[place] | | | | | | [address] | | | | + + + + + + + + | Specimen | + + | | + + + +---------+ + + | Performing | Address | City/State/Zipcode | Phone Number | | Organization | | | | + +---------+ + + | EXTERNAL LAB | | | | + +---------+ + + HISTORICAL LAB PANEL RESULT (11/26/2015 12:41 PM PST) + + + + + -+ | Component | Value | Ref Range | Performed | Pathologist | | | | | At | Signature | + + + + + -+ | WBC | 6.81Comment: Testing | 3.80 - 11.00 | EXTERNAL | | | | performed at [facility];[address] | K/uL | LAB | | | | [address];[place], [place] | | | | | | [address] | | | | + + + + + -+ | RED CELL | 4.61Comment: Testing | 3.70 - 5.10 | EXTERNAL | | | COUNT | performed at [facility];[address] | M/uL | LAB | | | | [address];[place] | | | | | | [address] | | | | + + + + + -+ | Hgb | 13.4Comment: Testing | 11.3 - 15.5 | EXTERNAL | | | | performed at [facility];[address] | g/dL | LAB | | | | [address];[place] | | | | | | [address] | | | | + + + + + -+ | Hematocrit, | 40.4Comment: Testing | 34.0 - 46.0 % | EXTERNAL | | | POC | performed at [facility];[address] | | LAB | | | | [address];[place] | | | | | | [address] | | | | + + + + + -+ | MCV | 87.7Comment: Testing | 80.0 - 100.0 fl | EXTERNAL | | | | performed at [facility];[address] | | LAB | | | | [address];[place] | | | | | | [address] | | | | + + + + + -+ | MCH | 29.1Comment: Testing | 27.0 - 34.0 pg | EXTERNAL | | | | performed at [facility];[address] | | LAB | | | | [address];[place] | | | | | | [address] | | | | + + + + + -+ | MCHC | 33.2Comment: Testing | 32.0 - 35.5 | EXTERNAL | | | | performed at [facility];[address] | g/dL | LAB | | | | [address];[place] | | | | | | [address] | | | | + + + + + -+ | RDW-CV | 39.8Comment: Testing | 37 - 53 fl | EXTERNAL | | | | performed at [facility];[address] | | LAB | | | | [address];[place] | | | | | | [address] | | | | + + + + + -+ | Platelet | 287Comment: Testing | 150 - 400 K/uL | EXTERNAL | | | Count | performed at [facility];[address] | | LAB | | | Plasma | [address];[place] | | | | | | [address] | | | | + + + + + -+ | MPV | 7.7Comment: Testing | fl | EXTERNAL | | | | performed at [facility];[address] | | LAB | | | | [address];[place] | | | | | | [address] | | | | + + + + + -+ | Differentia | AUTOMATEDComment: | | EXTERNAL | | | l Type | Testing performed at | | LAB | | | | [facility];[address];[place] [address] | | | | + + + + + -+ | % Segmented | 45.19Comment: Testing | % | EXTERNAL | | | | performed at [facility];[address] | | LAB | | | Neutrophils | [address];[place] | | | | | | [address] | | | | + + + + + -+ | % | 44.63Comment: Testing | % | EXTERNAL | | | Lymphocytes | performed at [facility];[address] | | LAB | | | | [address];[place] | | | | | | [address] | | | | + + + + + -+ | % Monocytes | 7.42Comment: Testing | % | EXTERNAL | | | | performed at [facility];[address] | | LAB | | | | [address];[place] | | | | | | [address] | | | | + + + + + -+ | % | 1.58Comment: Testing | % | EXTERNAL | | | Eosinophils | performed at [facility];[address] | | LAB | | | | [address];[place] | | | | | | [address] | | | | + + + + + -+ | % Basophils | 1.18Comment: Testing | % | EXTERNAL | | | | performed at [facility];[address] | | LAB | | | | [address];[place] | | | | | | [address] | | | | + + + + + -+ | Absolute | 3.08Comment: Testing | 1.90 - 7.40 | EXTERNAL | | | Segmented | performed at [facility];[address] | K/uL | LAB | | | Neutrophils | [address];[place] | | | | | | [address] | | | | + + + + + -+ | Absolute | 3.04Comment: Testing | 1.00 - 3.90 | EXTERNAL | | | Lymphocytes | performed at [facility];[address] | K/uL | LAB | | | | [address];[place] | | | | | | [address] | | | | + + + + + -+ | Absolute | 0.51Comment: Testing | 0.00 - 0.80 | EXTERNAL | | | Monocytes | performed at [facility];[address] | K/uL | LAB | | | | [address];[place] | | | | | | [address] | | | | + + + + + -+ | Absolute | 0.11Comment: Testing | 0.00 - 0.50 | EXTERNAL | | | Eosinophils | performed at [facility];[address] | K/uL | LAB | | | | [address];[place] | | | | | | [address] | | | | + + + + + -+ | Absolute | 0.08Comment: Testing | 0.00 - 0.10 | EXTERNAL | | | Basophils | performed at [facility];[address] | K/uL | LAB | | | | [address];[place] | | | | | | [address] | | | | + + + + + -+ | Na | 139Comment: Testing | 135 - 143 | EXTERNAL | | | | performed at [facility];[address] | mmol/L | LAB | | | | [address];[place] | | | | | | [address] | | | | + + + + + -+ | K | 4.1Comment: SLT | 3.5 - 4.9 | EXTERNAL | | | | HEMOLYSISTesting | mmol/L | LAB | | | | performed at [facility];[address] | | | | | | [address];[place] | | | | | | [address] | | | | + + + + + -+ | Cl | 106Comment: Testing | 99 - 109 mmol/L | EXTERNAL | | | | performed at [facility];[address] | | LAB | | | | [address];[place] | | | | | | [address] | | | | + + + + + -+ | CO2 | 28Comment: Testing | 23 - 32 mmol/L | EXTERNAL | | | | performed at [facility];[address] | | LAB | | | | [address];[place] | | | | | | [address] | | | | + + + + + -+ | Anion Gap | 9Comment: Testing | 5 - 20 mmol/L | EXTERNAL | | | | performed at [facility];[address] | | LAB | | | | [address];[place] | | | | | | [address] | | | | + + + + + -+ | Glucose, | 78Comment: Testing | 65 - 99 mg/dL | EXTERNAL | | | Fasting | performed at [facility];[address] | | LAB | | | | [address];[place] | | | | | | [address] | | | | + + + + + -+ | BUN | 16Comment: Testing | 8 - 25 mg/dL | EXTERNAL | | | | performed at [facility];[address] | | LAB | | | | [address];[place] | | | | | | [address] | | | | + + + + + -+ | Creatinine | 0.82Comment: Testing | 0.50 - 1.00 | EXTERNAL | | | | performed at [facility];[address] | mg/dL | LAB | | | | [address];[place] | | | | | | [address] | | | | + + + + + -+ | BUN/Creatin | 20Comment: Testing | | EXTERNAL | | | ine Ratio | performed at [facility];[address] | | LAB | | | | [address];[place] | | | | | | [address] | | | | + + + + + -+ | Calcium | 8.3 (L)Comment: Testing | 8.5 - 10.5 | EXTERNAL | | | | performed at [facility];[address] | mg/dL | LAB | | | | [address];[place] | | | | | | [address] | | | | + + + + + -+ | Protein, | 7.3Comment: Testing | 6.3 - 8.2 g/dL | EXTERNAL | | | Total | performed at [facility];[address] | | LAB | | | | [address];[place] | | | | | | [address] | | | | + + + + + -+ | Albumin | 3.7Comment: Testing | 3.3 - 4.8 g/dL | EXTERNAL | | | | performed at [facility];[address] | | LAB | | | | [address];[place] | | | | | | [address] | | | | + + + + + -+ | Globulin | 3.6Comment: Testing | 1.3 - 4.9 g/dL | EXTERNAL | | | | performed at [facility];[address] | | LAB | | | | [address];[place] | | | | | | [address] | | | | + + + + + -+ | A/G Ratio | 1.0Comment: Testing | 1.0 - 2.4 | EXTERNAL | | | | performed at [facility];[address] | | LAB | | | | [address];[place] | | | | | | [address] | | | | + + + + + -+ | Bilirubin | 0.2Comment: Testing | 0.1 - 1.5 mg/dL | EXTERNAL | | | Total | performed at [facility];[address] | | LAB | | | | [address];[place] | | | | | | [address] | | | | + + + + + -+ | ALP, | 69Comment: Testing | 35 - 115 U/L | EXTERNAL | | | External | performed at [facility];[address] | | LAB | | | | [address];[place] | | | | | | [address] | | | | + + + + + -+ | AST | 22Comment: SLT | 10 - 45 U/L | EXTERNAL | | | | HEMOLYSISTesting | | LAB | | | | performed at [facility];[address] | | | | | | [address];[place] | | | | | | [address] | | | | + + + + + -+ | ALT | 31Comment: Testing | 10 - 65 U/L | EXTERNAL | | | | performed at [facility];[address] | | LAB | | | | [address];[place] | | | | | | [address] | | | | + + + + + -+ | Estimated | >60Comment: GFR <60: | mL/min/1.73m2 | EXTERNAL | | | GFR | CHRONIC KIDNEY DISEASE, | | LAB | | | | IF FOUND OVER A 3 MONTH | | | | | | PERIOD.GFR <15: KIDNEY | | | | | | FAILURE.FOR | | | | | | AMERICANS, MULTIPLY THE | | | | | | CALCULATED GFR BY | | | | | | 1.210.Testing performed | | | | | | at [facility];[address];[place] [address] | | | | + + + + + -+ | CK, Total | 128Comment: Testing | 30 - 240 U/L | EXTERNAL | | | | performed at [facility];[address] | | LAB | | | | [address];[place] | | | | | | [address] | | | | + + + + + -+ | INR | 1.0Comment: REFERENCE | | EXTERNAL | | | | RANGE:0.9 - 1.2 | | LAB | | | | NON-ANTICOAGULATED2.0 | | | | | | - 3.0 ALL OTHER | | | | | | THERAPEUTIC | | | | | | INDICATIONS2.5 - 3.5 | | | | | | MECHANICAL HEART VALVES, | | | | | | RECURRENT OR SYSTEMIC | | | | | | EMBOLISMTesting | | | | | | performed at [facility];[address] | | | | | | [address];[place] | | | | | | [address] | | | | + + + + + -+ | aPTT, | 27Comment: Testing | 23 - 32 seconds | EXTERNAL | | | Patient | performed at [facility];[address] | | LAB | | | | [address];[place] | | | | | | [address] | | | | + + + + + -+ | CK-MB | 3.2Comment: Testing | 0.5 - 3.6 ng/mL | EXTERNAL | | | | performed at [facility];[address] | | LAB | | | | [address];[place] | | | | | | [address] | | | | + + + + + -+ | CK-MB Index | 2.5Comment: CK INDEX | | EXTERNAL | | | | INTERPRETATION: | | LAB | | | | MMB ng/mL | | | | | | | | | | | |CK INDEX INTERPRETATION: | | | | | | MMB ng/mL | | | | | | | | | | + + + + + -+ + + | Specimen | + + | | + + + +---------+ + + | Performing | Address | City/State/Zipcode | Phone Number | | Organization | | | | + +---------+ + + | EXTERNAL LAB | | | | + +---------+ + + POC Glucose (11/26/2015 12:25 PM PST) + + + + + + | Component | Value | Ref Range | Performed | Pathologist | | | | | At | Signature | + + + + + + | Glucose, | 102 (H)Comment: Testing | 65 - 99 mg/dL | EXTERNAL | | | Fingerstick | performed at [facility] | | LAB | | | | [address];[place] | | | | | | [address] | | | | + + + [...] + | Diagnosis | + + | Convulsions, unspecified convulsion type (HCC) | + + | Generalized weakness Other malaise and fatigue | + + documented in this encounter"
--- OUTSIDE RECORDS SUMMARY | ~2019-09-28 | XMS | Encounter Summary ---
Demographics + + + | Address | [address] | | | [place] [address] | + + + | Home Phone | | + + + | Preferred Language | Unknown | + + + | Marital Status | | + + + | Jewish Affiliation | 1013 | + + + | Race | Unknown | + + + | Ethnic Group | Unknown | + + + Author + + + | Author | [facility] | | | and Priteshana | + + + | Organization | [facility] | | [...] Team Providers + +------+ + | Care Bedspread Cutter Name | Role | Phone | + +------+ + | Romy De La Paz MD | PCP | | + +------+ + Reason for Visit + + + | Reason | Comments | + + + | Pre-op Question | | + + + Encounter Details +--------+ + + + + | Date | Type | Department | Care Team | Description | +--------+ + + + + | 07/24/ | Telephone | [facility] | Maykel Hutchins MD | Pre-op Question | | 2019 | | [facility] | [address] | | | | | ORTHOPEDIC SPINE | [place] | | | | | [address] [place] | [place] [address] | | | | | [place] | [phone] | | | | | [address] | | | | | | [phone] | | | +--------+ + + + [...] [address] | | | | | | [place] | | | | | | [address] | | | | | | | | +--------+---------+ + + + documented as of this encounter Visit Diagnoses Not on filedocumented in this encounter"
--- OUTSIDE RECORDS SUMMARY | ~2019-09-28 | XMS | Encounter Summary ---
Demographics + + + | Address | [address] | | | [place] [address] | + + + | Home Phone | | + + + | Preferred Language | Unknown | + + + | Marital Status | Single | + + + | Sikh Affiliation | NON | + + + | Race | White | + + + | Ethnic Group | Not or | + + + Author + + + | Organization | Unknown | + + + | Address | Unknown | + + + | Phone | Unavailable | + + + Support + + +---------+ + | Name | Relationship | Address | Phone | + + +---------+ + | Royce Menchaca | ECON | Unknown | | + + +---------+ + Care Team Providers + +------+ + | Care Nca Certified Concierge Name | Role | Phone | + +------+ + PCP | Unavailable | + +------+ + Encounter Details +--------+ + + + + | Date | Type | Department | Care Team | Description | +--------+ + + + + | 06/26/ | Respiratory | | Other, Faculty | | | 2006 | Therapy | | [phone] | | +--------+ + + + + [...] Not on filedocumented as of this encounter Procedures + +--------+ + + + | Procedure Name | Priori | Date/Time | Associated Diagnosis | Comments | | | ty | | | | + +--------+ + + + | MEDICAL GAS/HUMIDITY | Routin | 06/26/2006 | | Results for this | | | e | 4:11 PM | | procedure are in the | | | | PDT | | results section. | + +--------+ + + + documented in this encounter Results MEDICAL GAS/HUMIDITY (06/26/2006 4:11 PM PDT) + + + + + + | Component | Value | Ref Range | Performed | Pathologist | | | | | At | Signature | + + + + + + | [facility] | NASAL CANNULA AT 4 | | | | | GAS/HUMIDIT | | | | | | Y | Tigist Reid RCP | | | | + + + + + + + + | Specimen | + + | | + + + + + | Narrative | Performed At | + + + | Ordered by an unspecified provider. | | + + + + + + + + | Performing | Address | City/State/Zipcode | Phone Number | | Organization | | | | + + + + + | [facility] | [address] | [place], [place] | | | DIAGNOST[facility] - | [place] | [address] | | | PULMONARY FUNCTION | | | | + + + + + documented in this encounter Visit Diagnoses Not on filedocumented in this encounter"
--- OUTSIDE RECORDS SUMMARY | ~2019-09-28 | XMS | Encounter Summary ---
Demographics + + + | Address | [address] | | | [place] [address] | + + + | Home Phone | | + + + | Preferred Language | Unknown | + + + | Marital Status | | + + + | Adventism Affiliation | 1013 | + + + | Race | Unknown | + + + | Ethnic Group | Unknown | + + + Author + + + | Author | [facility] | | | and Priteshana | + + + | Organization | [facility] | | | [...] Team Providers + +------+ + | Care Photographic Aide Name | Role | Phone | + +------+ + PCP | Unavailable | + +------+ + Encounter Details +--------+ + + + + | Date | Type | Department | Care Team | Description | +--------+ + + + + | 10/06/ | [facility] | [facility] | Robert Perales | | | 2010 | Encounter | MED CTR SLEEP | MD Eric Rivera [place] | | | | | CENTER [address] [place] | | | | | [place], [place] | [place] [address] | | | | | [address] | [phone] | | | | | [phone] | | | +--------+ + + + [...] +---------+ + + | Ropinirole HCl | daily 3 hours before | | 0 | 08/31/20 | | | (REQUIP XL) 6 MG | bedtime. 1 in the | | | 11 | 4 | | TB24 | morning, and 1 at | | | | | | | noon | | | | | + + + +---------+ + + documented as of this encounter Plan of Treatment +--------+---------+ + + + | Date | Type | Specialty | Care Team | Description | +--------+---------+ + + + | 10/15/ | Office | Pain Medicine | Denys Sibley, | | | 2019 | Visit | | DO [address] | | | | | | [place] | | | | | | [address] | | | | | | | | +--------+---------+ + + + documented as of this encounter Visit Diagnoses Not on filedocumented in this encounter"
--- OUTSIDE RECORDS SUMMARY | ~2019-09-28 | XMS | Encounter Summary ---
Demographics + + + | Address | [address] | | | [place] [address] | + + + | Home Phone | | + + + | Preferred Language | Unknown | + + + | Marital Status | | + + + | Tenriism Affiliation | 1013 | + + + | Race | Unknown | + + + | Ethnic Group | Unknown | + + + Author + + + | Author | [facility] | | | and Priteshana | + + + | Organization | [facility] | | | [...] Team Providers + +------+ + | Care Survey Coordinator Name | Role | Phone | + +------+ + | Miquel Calhoun MD | PCP | | + +------+ + Encounter Details +--------+ + + + + | Date | Type | Department | Care Team | Description | +--------+ + + + + | 05/01/ | Hospital | [facility] | Shay Dietz | | | 2012 | Encounter | MED CTR XRAY [address] | | | | | [place] | [facility] [place], [place] | | | | | [place] [address] | [address] | | | | | [phone] | | | +--------+ + + + + Social History + +-------+ +--------+------+ | Tobacco Use | Types | Packs/Day | Years | Date | | | | | Used | | + +-------+ +--------+------+ | Never Smoker | | | | | + +-------+ +--------+------+ + + +---------+ + | Alcohol Use [...] + + + +---------+ + + | aspirin 81 MG | Take 81 mg by mouth | | 0 | | | | tablet | Daily. | | | | 3 | + + + +---------+ + + | ClonazePAM | TABS | | 0 | 07/13/20 | | | (KLONOPIN PO) | | | | 12 | 4 | + + + +---------+ + + | cyclobenzaprine | Take 1-2 tablets up | 60 | 2 | 11/03/19 | | | (FLEXERIL) 5 MG | to three times daily | tablet | | 13 | 4 | | tabletIndications: | as needed | | | | | | Back pain | | | | | | + + + +---------+ + + | IBUPROFEN PO | TABS - 200 mg as | | 0 | 07/13/20 | | | | needed | | | 12 | 3 | + + + +---------+ + + | levothyroxine | one tablet every | | 0 | 07/13/20 | | | (SYNTHROID, | morning on an empty | | | 12 | 4 | | LEVOTHROID) 150 mcg | stomach | | | | | | tablet | | | | | | + + + +---------+ + + | montelukast | Take 10 mg by mouth | | 0 | 07/13/20 | | | (SINGULAIR) 10 mg | Daily. | | | 12 | 4 | | tablet | | | | | | + + + +---------+ + + | Multiple Vitamin | Take by mouth. | | 0 | | | | (MULTI-VITAMIN DAILY | | | | | 3 | | PO) | | | | | | + + + +---------+ + + | | Take 1 tablet by | | 0 | | | | oxyCODONE-acetaminop | mouth every 8 hours | | | | 3 | | hen (PERCOCET) | as needed. | | | | | | 10-325 mg per tablet | | | | | | + + + +---------+ + + | ranitidine | Take 150 mg by mouth | | 0 | 07/13/20 | | | (ZANTAC) 150 mg | 2 times daily. | | | 12 | 4 | | tablet | | | | [...] [place] | | | | | | [address] | | | | | | | | +--------+---------+ + + + documented as of this encounter Procedures + +--------+ + + + | Procedure Name | Priori | Date/Time | Associated Diagnosis | Comments | | | ty | | | | + +--------+ + + + | FL FACET INJECTION | Routin | 05/09/2013 | | Results for this | | | e | 6:13 PM | | procedure are in the | | | | PDT | | results section. | + +--------+ + + + documented in this encounter Results FL Facet Injection (05/09/2013 6:13 PM PDT) + + | Specimen | + + | | + + + + + | Narrative | Performed At | + + + | [facility] | DERRY | | Department [address] [facility] | [facility] | | [ rep [facility]] [ rep [facility] | | [facility]] Signed | - IMAGING | | | | | Patient Name: WAYNEKORI PARIS | | | Physician: OMID : [id number] Age: 67 Sex: F Unit | | | #: [id number] Exam Date: 05/01/13 Location: | | | IMG.INV Report #: [id number] Page: | | | %(RAD)RES..mtdd.print.filter("pg") of %(RAD) | | | RES..mtdd.print.filter("tpg") | | | | | | Accession Number: [id number] | | | PROCEDURE NOTE LUMBAR FACET INJECTION, 05/01/2013 | | | CLINICAL HISTORY: ICD-9 CODE 721.3 LUMBAR SPONDYLOSIS. Ms. | | | Kori Rubio presents to the fluoroscopy suite for | | | fluoroscopically-guided bilateral L4- 5 facet injections as part of | | | conservative management for chronic pain with lumbar spondylosis. | | | After informed consent was obtained, the patient lay in the prone | | | position on the fluoroscopy table. The areas were identified under | | | fluoroscopic guidance. The areas were prepped and draped in sterile | | | fashion. A 25-gauge, 1.5-inch needle was inserted into each | | | region and approximately 3 mL of buffered 1% lidocaine was infused | | | and a 22-gauge spinal needle was inserted into the superior portion of | | | each facet under fluoroscopic guidance. Confirmation into the | | | epidural space was obtained with infusion of approximately 0.5 mL of | | | Isovue contrast which showed outline of the facet joints. Then, a | | | combination of 1 mL of 1% lidocaine and 1 mL of 40 mg/mL Kenalog was | | | infused, divided between the two sides. The patient tolerated the | | | procedure well without complications. Pre- and post-procedure blood | | | pressures were stable. The patient was given verbal as well as | | | written followup instructions, and the patient reported good | | | improvement in pain symptoms post procedure. Prior to the | | | start of the procedure, the following were performed and verified, | | | including correct patient identity, correct site/side marked and | | | visible, agreement on the procedure to be done, correct patient | | | positioning and an accurate procedure consent form. Any safety | | | precautions based on clinical history and/or medication use have | | | been addressed. I personally performed the procedure above. | | | Dictated Date/Time: 05/09/2013 18:13 Transcribed | | | Date/Time: 05/09/2013 18:53 Burial Needs Salesperson: | | | <<Signature on File>> | | | Shay Mukherjee | | | MD J Luis05/15/132101 <Electronically signed by Shay Mukherjee | | | J Luis SALGADO> Shay Dietz MD 05/09/131812 | | | Burial Needs Salesperson: Yudelka Mnnwzuigjogyf83/10/[id number] | | | | | + + + + + + + + | Performing | Address | City/State/Zipcode | Phone Number | | Organization | | | | + + + + + | [facility] | [address] | [place] | [phone] | | [facility] | | [address] | | | - IMAGING | | | | + + + + + documented in this encounter Visit Diagnoses Not on filedocumented in this encounter
--- OUTSIDE RECORDS SUMMARY | ~2019-09-28 | XMS | Encounter Summary ---
Demographics + + + | Address | [address] | | | [place] [address] | + + + | Home Phone | | + + + | Preferred Language | Unknown | + + + | Marital Status | Single | + + + | Mu-Ism Affiliation | NON | + + + | Race | White | + + + | Ethnic Group | Not or | + + + Author + + + | Author | [facility] | + + + | Organization | [facility] | + + + | Address | Unknown | + + + | Phone | Unavailable | + + + Support + + +---------+ + | Name | Relationship | Address | Phone | + + +---------+ + | Royce Menchaca | ECON | Unknown | | + + +---------+ + Care Team Providers + +------+ + | Care Public Health Nutritionist Name | Role | Phone | + +------+ + | Oxana Nye | PCP | | + +------+ + Reason for Visit + + + | Reason | Comments | + + + | RN Care Management | follow up BPs | + + + Encounter Details +--------+ + + + + | Date | Type | Department | Care Team | Description | +--------+ + + + + | 03/25/ | Telephone | Cardiology General | Airam Fuchs MD | RN Care Management | | 2016 | | at [facility] [address] | [address] | (follow up BPs) | | | | Abbe Soto Mailcode: | [address] [place], | | | | | [address] | [place] [address] | | | | | [facility], | [phone] | | | | | [place] [address] [place] | | | | | | floor [place], [place] | | | | | | [address] | | | | | | [phone] | | | +--------+ + + + [...]
--- OUTSIDE RECORDS SUMMARY | ~2019-09-28 | XMS | Encounter Summary ---
Demographics + + + | Address | [address] | | | [place] [address] | + + + | Home Phone | | + + + | Preferred Language | Unknown | + + + | Marital Status | | + + + | Yarsani Affiliation | 1013 | + + + | Race | Unknown | + + + | Ethnic Group | Unknown | + + + Author + + + | Author | [facility] | | | and Priteshana | + + + | Organization | [facility] | | | [...] Team Providers + +------+ + | Care Hospice Volunteer Name | Role | Phone | + [...] + + | Closed | Specialty | Physical | Diagnoses | | [facility] | | | Services | Therapy / | Left lumbar | [place], | Pt Op [address] | | | Required | Rehabilitatio | | [place], | [place] | | | | n | radiculopath | PA-C [address] | [place], | | | | | y Chronic | [address] | [place] [address] | | | | | low back | [place], [place] | Phone: | | | | | pain Facet | [address] | [phone] | | | | | arthritis of | Phone: | Fax: | | | | | lumbar | [phone] | [phone] | | | | | region | Fax: | | | | | | Foraminal | [phone] | | | | | | stenosis of | | | | | | | lumbar | | | | | | | region DDD | | | | | | | (degenerativ | | | | | | | e disc | | | | | | | disease), | | | | | | | lumbar | | | | | | | Procedures | | | | | | | pt eval | | | +--------+ + + + + + Reason for Visit + + + | Reason | Comments | + + + | Back Pain | low back pain radiating bilateral L>R leg | + + + Encounter Details +--------+---------+ + + + | Date | Type | Department | Care Team | Description | +--------+---------+ + + + | 04/17/ | Office | [facility] | Shahnazdanowicz, | Left lumbar | | 2013 | Visit | PHYSIATRY [address] | [place] [address] [address] | radiculopathy | | | | [place], | [facility], | (Primary Dx); | | | | [place] [address] | [place] [address] | Chronic low back | | | | [phone] | [phone] | pain; Facet | | | | | | arthritis of lumbar | | | | | | region; Foraminal | | | | | | stenosis of lumbar | | | | | | region - left L5-S1; | | | | | | DDD (degenerative | | | | | | disc disease), | | | | | | lumbar; Scoliosis of | | | | | | lumbar spine | +--------+---------+ + + + Social History [...] + + + | Blood Pressure | 121/68 | 04/17/2014 1:23 PM | | | | | PDT | | + + + + + | Pulse | 85 | 04/17/2014 1:23 PM | | | | | PDT [...] + + + + | Weight | 59.4 kg (131 lb) | 04/17/2014 1:23 PM | | | | | PDT | | + + + + + | Height | 162.6 cm (5' 4") | 04/17/2014 1:23 PM | | | | | PDT | | + + + + + | Body Mass Index | 22.49 | 04/17/2014 1:23 PM | | | | | PDT | | + + + + + documented in this encounter Patient Instructions Patient Instructions Yaneli Dueñas PA-C - 04/17/2014 1:55 PM PDT Follow-up at the hospital thirty minutes [...] of the procedure you must provide a bobcat driver/labor to take you home. For all procedur es it is recommended that someone else drive you home. documented in this encounter Progress Notes Yaneli Dueñas PA-C - 04/17/2014 1:22 PM PDTFormatting of this note might be differe nt from the original. CHIEF COMPLAINT: Chief Complaint Patient presents with Back Pain low back pain radiating bilateral L>R leg HISTORY OF PRESENT ILLNESS: The patient is a 68 y.o. female being seen today in follow-up for complaints of low back pa in radiating into the left leg. The patient has been seen for this complaint in the past, with initial visit started by Dr. Dietz. Previously it was recommended that receive a left L5/S1 TFESI, this was last done 01/08/14. She reports that the treatment was effective for approximately 2 months. Overall the patient reports that the symptoms are worsening in the last month. She rates t he pain as 6 on scale of 1-10. She describes the pain as a constant ache with sharpness int o the lateral aspect of left thigh over left knee and to the top of foot. She reports numbn ess and tingling into the left extremity that is intermittent following what she describes a s the L5 dermatome. She informed me that her back pain is worse than the leg pain - mild in the leg, and severe in the back. Her symptoms worsen with standing, walking and any movement. Her symptoms improve with hea t and rest. She does report weakness of the left lower extremity. The patient does report recent falls and informed me she has been into the Emergency room where an MRI was taken, and she was gi shereen Oxycodone for pain relief. She would like me to refill this prescription as her [facility] care provider will not refill them either. She has had an issue with suicidal attempt by overdosing on drugs. She does not have bowel and bladder dysfunction. She does not have saddle anesthesia. Treatments for these complaints have included prior injections, physical therapy, narcotic medications, NSAIDS, prior trails of neuropathic pain medicine. Patient's medications, allergies, past medical, surgical, social and family histories were reviewed and updated as appropriate. CURRENT MEDICATIONS: Current Outpatient Prescriptions Medication Sig Dispense Refill ergocalciferol (VITAMIN D-2) 50,000 units capsule Take 50,000 Units by mouth Once a wee k. mirtazapine (REMERON SOLTAB) 15 mg disintegrating tablet Take 15 mg by mouth nightly. oxyCODONE (ROXICODONE) 5 mg tablet Take 5 mg by mouth every 4 hours as needed. Ropinirole HCl (REQUIP XL) 6 MG TB24 Take 2 mg by mouth 2 times daily. ALLERGIES: Allergies Allergen Reactions Lorazepam Morphine Zolpidem REVIEW OF SYSTEMS: (in the last 24 hours) GENERALLY: No fever, + chills, weight changes. EYES: No vision changes. EARS, NOSE, AND THROAT: No hearing loss or tinnitis,no difficulty swallowing, no hoarseness . NEUROMUSCULAR: Please see the review of systems discussed above in the history of present illness. In addition, the patient has + dizziness, no blackouts, no headaches. CARDIOVASCULAR: No chest pain, no palpitations PULMONARY: No shortness of breath, no cough. GASTROINTESTINAL: No nausea, vomiting or diarrhea GENITOURINARY: No dysuria or hematuria SKIN: No rashes. HEMATOLOGIC/LYMPHATIC: No abnormal bleeding PHYSICAL EXAMINATION: Filed Vitals: 04/17/14 1323 BP: 121/68 Pulse: 85 PainSc: 6 Body mass index is 22.47 kg/(m^2). GENERAL: The patient is well developed and well nourished. She does appear uncomfortable w hen seated. HEENT: HEAD/FACE: EYES: EARS: NASOPHARNYX: OROPHARNYX: Normocephalic and atraumatic. There are no areas of recent trauma. Normal sclerae without icterus. No drainage or tenderness. Clear without drainage. Clear without erythema. SKIN Limited skin exam shows no significant rashes or lesions. There are not scars in the lumbosacral region. CHEST: The patient is in no [...] has no apparent deficits with short or long term care pharmacist memory. She has appropriate fund of knowledge Cranial nerves 2-12 appear grossly intact. Sensory exam does show diminished sensation to light touch over the left lower extremities following L5 dermatome. REFLEX: RIGHT LEFT PATELLAR 2+ 2+ ACHILLES 2+ 0 PLANTAR Downgoing Downgoing MUSCULOSKELETAL There is no tenderness in the midline of the cervical or thoracic spine. T here is no major palpable deformity of the spine. Patients skin is hypersensitive all over. Straight leg raise and slump-sit are positive on the left. Alejandro's maneuver and impingem ent testing were negative for any groin pain but did reproduce low back pain. There was no tenderness to palpation over the greater trochanters or sacral sulci. The patient localize d the majority of the pain to the L4/L5 region. Lumbar facet loading was positive. 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 The patient was not able to heel and toe walk due to pain, balance issues and stiffness - she would not attempt for me. There was no redness, effusion, warmth or joint line tenderness in the knees or ankles. RADIOGRAPHIC REVIEW: The patient's imaging was reviewed in detail with the patient today during the visit. Lumb ar MRI from 04/12/14 shows multilevel posterior disc bulge, multilevel facet hypertrophy, blaze ateral foraminal stenosis at the L3/L4 level, L4/L5 level, a posterior disc bulge with annul ar tear and bilateral foraminal stenosis with left nerve root impingment at the L5/S1 level. ASSESSMENT: 1. Left lumbar radiculopathy 2. Chronic low back pain 3. Facet arthritis of lumbar region 4. 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 DDD (degenerative disc disease), lumbar 6. Scoliosis of lumbar spine PLAN: 1. After discussion with the patient she wanted me to refill a prescription for oxycodone, however I instructed with her this pain medicine will not target her symptoms but cause drow siness, lethargy, and constipation. I did offer her a Left L5/S1 TFESI and she did accept t his. I do believe she will receive benefit from this intervention. 2. The patient reported her last bout of physical therapy did help her symptoms, but this w as over 1 year ago. She did agree to do physical therapy again after her steroid injection. A detailed Physical Therapy prescription has been given to the [facility]. 3. I did discussed neuropathic pain medicine with the patient but patient states she has t ried all those without relief. 4. The patient will follow up with me in 3 months for a possible injection again. At that time I may offer her the same injection Left L5/S1 TFESI or Facet injections, however she marcos s had previous facet injection with little luck and RFA did not help much either. We will s ee how this injection improved her symptoms and she may need to be on a regular schedule to receive these shots. ELECTRONICALLY SIGNED BY: Yaneli Dueñas PA-C, 04/17/2014 SUPERVISING PHYSICIAN: Heriberto Henderson Jr., MD, who was present in the clinic today during this visit. CC: Dr. Gallardo documented in t his encounter Plan [...] [place] | | | | | | [address] | | | | | | | | +--------+---------+ + + + + + +--------+ + + | Name | Type | Priori | Associated Diagnoses | Order Schedule | | | | ty | | | + + +--------+ + + | * [facility] | Outpatient | Routin | Left lumbar | Ordered: 04/17/2014 | | Therapy - AMB | Referral | e | radiculopathy | | | Referral | | | Chronic low back | | | | | | pain Facet | | | | | | arthritis of lumbar | | | | | | region Foraminal | | | | | | stenosis of lumbar | | | | | | region - left L5-S1 | | | | | | DDD (degenerative | | | | | | disc disease), | | | | | | lumbar | | + + +--------+ + + documented as of this encounter Results FL BRITTNEY Lumbar Transforaminal (04/18/2014 3:38 PM PDT) + + | Specimen | + + | | + + + + + | Narrative | Performed At | + + + | 04/18/2014 Transforaminal Epidural Steroid Injection Diagnosis: | [facility] | | Lumbar radiculopathy ICD-9 Code 724.4 Kori Caputo | [facility] | | Joanne presents to the fluoroscopy suite for a | [facility] | | fluoroscopically-guided left L5-S1 transforaminal epidural [...] + + | Shay Dietz MD - 04/19/2014 12:18 PM PDT 04/18/2014Transforaminal Epidural | | Steroid InjectionDiagnosis: Lumbar radiculopathyICD-9 [...] | + + + + + | [facility] | [address] [place] [address] 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
--- OUTSIDE RECORDS SUMMARY | ~2019-09-28 | XMS | Encounter Summary ---
Demographics + + + | Address | [address] | | | [place] [address] | + + + | Home Phone | | + + + | Preferred Language | Unknown | + + + | Marital Status | | + + + | Mormon Affiliation | 1013 | + + + | Race | Unknown | + + + | Ethnic Group | Unknown | + + + Author + + + | Author | [facility] | | | and Priteshana | + + + | Organization | [facility] | | | [...] Team Providers + +------+ + | Care Shuttle Fitting Supervisor Name | Role | Phone | + +------+ + PCP | Unavailable | + +------+ + Reason for Visit + + + | Reason | Comments | + + + | Back Pain | | + + + Encounter Details +--------+---------+ + + + | Date | Type | Department | Care Team | Description | +--------+---------+ + + + | 11/01/ | Office | [facility] | Shay Dietz | Back pain (Primary | | 2012 | Visit | PHYSIATRY [address] | Dx); BACK PAIN, | | | | [place], | [address] [place], [place] | LUMBAR; | | | | [place] [address] | [id number] | OSTEOARTHRITIS, | | | | [phone] | | LUMBOSACRAL SPINE; | | | | | | DISC DISEASE, | | | | | | LUMBAR; Left lumbar | | | | | | [...] + + + | Blood Pressure | 105/63 | 11/01/2012 7:39 AM | | | | | PST | | + + + + + | Pulse | 91 | 11/01/2012 7:39 AM | | | | | PST [...] + + + + | Weight | 69.9 kg (154 lb) | 11/01/2012 7:39 AM | | | | | PST | | + + + + + | Height | 160 cm (5' 3") | 11/01/2012 7:39 AM | | | | | PST | | + + + + + | Body Mass Index | 27.28 | 11/01/2012 7:39 AM | | | | | PST | | + + + + + documented in this encounter Patient Instructions Patient Instructions Shay Dietz MD - 11/01/2012 9:06 AM PSTFollow[facility] your scheduled [facility] to allow for time to check in. You may eat and drink as usual on the day of the procedure. Do not take any blood thinning medications for at least 5-7 days prior to your procedure. All other medications should be taken as usual. Common blood thinning medications include: Aspirin (a baby aspirin is o.k.) Ibuprofen (Advil or Motrin) Naproxen (Aleve) Nabumetone (Relafen) Clopidogrel (Plavix) Dipyridamole/ASA (Aggrenox) Warfarin (Coumadin) Dabigatran (Pradaxa) There are many others. If you have questions about your medications please contact our off ice. Please also provide a motor coach bus driver to take you home on the day of the procedure. documented in this encounter Progress Notes Shay Dietz MD - 11/01/2012 7:49 AM PST Subjective: Patient ID: Kori Rubio is a 67 y.o. female. Chief Complaint Patient presents with Back Pain HPIThe patient is being seen today in follow-up for complaints of low back pain. She has b een seen for this complaint in the past. She was previously found to have significant facet arthritis in the lower lumbar regions. She received bilateral L4-L5 facet injections which provided good relief for approximately one year. She fell down on the ice 3 weeks ago and h as had increased pain since then. The pain is in her back into radiating into her left leg. She has some numbness and tingling in her left leg also. She also feels that the left leg i s weak and it occasionally will give out on her. The majority of the pain is in the back at about the belt line. Once in a while the right leg bothers her. Laying down and sitting hel p, but standing and walking hurt. Her symptoms worsen with standing. Her symptoms improve with sitting. She denies bowel and bladder dysfunction or saddle anesthesia. Patient's medications, allergies, past medical, surgical, social and family histories were reviewed and updated as appropriate. Review of Systems No other complaints other than those listed in HPI. Objective: Physical Exam Nursing note and vitals reviewed. Constitutional: She is oriented to person, place, and time. She appears well-developed and well-nourished. HENT: Head: Normocephalic and atraumatic. Neck: No tracheal deviation present. Cardiovascular: Normal rate and regular rhythm. Pulmonary/Chest: Effort normal and breath sounds normal. No respiratory distress. Lymphadenopathy: She has no cervical adenopathy. Neurological: She is alert and oriented to person, place, and time. She has normal strength . No cranial nerve deficit or sensory deficit. She displays no Babinski's sign on the right side. She displays no Babinski's sign on the left side. Reflex Scores: Patellar reflexes are 2+ on the right side and 2+ on the left side. Achilles reflexes are 2+ on the right side and 2+ on the left side. Skin: Skin is warm, dry and intact. No abrasion, no bruising, no ecchymosis, no laceration and no rash noted. Psychiatric: She has a normal mood and affect. Her speech is normal and behavior is normal. Thought content normal. Cognition and memory are normal. Musculoskeletal: Straight leg raise and slump-sit are negative. Alejandro's maneuver and im pingement testing were negative for any groin pain. There was no tenderness to palpation o ligia the greater trochanters or sacral sulci. The patient localized the majority of the pain to the low back at approximately the L4-L5 region. Lumbar facet loading was positive. Str ength testing showed 5/5 strength in the right lower extremity. On the left, strength testi ng showed diffuse weakness, worst with dorsiflexion and great toe extension. It was unclear if this was true weakness or effort dependent weakness. The patient was able to heel and t oe walk without difficulty. There was no redness, effusion, warmth or joint line tenderness in the knees or ankles. Assessment: 1. BACK PAIN, LUMBAR 2. OSTEOARTHRITIS, LUMBOSACRAL SPINE - worst at L4-L5 3. DISC DISEASE, LUMBAR - Worst at L5-S1 4. Left lumbar radiculopathy- with radicular pain into the left leg and subjective weakness /numbness. It is difficult for me to determine how much of the weakness is real or effort d ependent. Plan: 1. The patient benefited previously from bilateral L4-L5 facet injections and I do feel it is appropriate to repeat the injections again. 2. The patient is also having radicular pain and some weakness in the left lower extremity . If the leg pain continues after the facet injections I may consider a left L5-S1 TFESI. 3. The patient is currently in PT. I do feel this is appropriate. She certainly needs to work on lower extremity strengthening and balance. I did also encourage her to use a cane or a walker but she is very resistant. 4. I would consider repeat imaging of the lumbar spine if the weakness or numbness continu es to worsen. documented in this encounter Plan of Treatment +--------+---------+ + + + | Date | Type | Specialty | Care Team | Description | +--------+---------+ + + + | 10/15/ | Office | Pain Medicine | Denys Sibley, | | | 2018 | Visit | | [address] | | | | | | [address] [place] | | | | | | [address] | | | | | | | | +--------+---------+ + + + documented as of this encounter Visit Diagnoses + + | Diagnosis | + + | Back pain - Primary Backache, unspecified | + + | BACK PAIN, LUMBAR Lumbago | + + | OSTEOARTHRITIS, LUMBOSACRAL SPINE Lumbosacral spondylosis without myelopathy | + + | DISC DISEASE, LUMBAR Degeneration of lumbar or lumbosacral intervertebral disc | + + | Left lumbar radiculopathy Thoracic or lumbosacral neuritis or radiculitis, | | unspecified | + + documented in this encounter
--- OUTSIDE RECORDS SUMMARY | ~2019-09-28 | XMS | Encounter Summary ---
Demographics + + + | Address | [address] | | | [place] [address] | + + + | Home Phone | | + + + | Preferred Language | Unknown | + + + | Marital Status | | + + + | Judaism Affiliation | 1013 | + + + [...] Team Providers + +------+ + | Care Floral Associate Name | Role | Phone | + +------+ + | Wendi Aiken | PCP | | + +------+ + Reason for Visit + + + | Reason | Comments | + + + | Anxiety | | + + + | Dehydration | | + + + Encounter Details +--------+ + + + + | Date | Type | Department | Care Team | Description | +--------+ + + + + | 04/02/ | Emergency | [facility] | [facility] [place], | Acute stress | | 2017 | | [facility] | MD [address] | reaction (Primary | | | | CENTER [address] | [place] | Dx) | | | | [place] | [id number] | | | | | [address] | | | | | | [phone] | | | +--------+ + + + [...] + + + | Blood Pressure | 161/80 | 04/02/2017 7:18 PM | | | | | PDT | | + + + + + | Pulse | 86 | 04/02/2017 9:07 PM | | | | | PDT | | + + + + + | Temperature | 36.9 C (98.5 F) | 04/02/2017 7:18 PM | | | | | PDT | | + + + + + | Respiratory Rate | 12 | 04/02/2017 9:07 PM | | | | | PDT | | + + + + + | Oxygen Saturation | 99% | 04/02/2017 9:07 PM | | | | | PDT [...] + + + +---------+ + + | amLODIPine | Take 5 mg by mouth | | 0 | | | | (NORVASC) 5 mg | Daily. | | | | 8 | | tablet | | | | | | + + + +---------+ + + | clonazepam | Take 1 mg by mouth | | 0 | | | | (KLONOPIN) 2 MG | Twice daily as | | | | 8 | | tablet | needed. | | | | | + + + +---------+ + + | diazePAM (VALIUM) | Take 0.5 tablets by | 10 | 0 | 04/02/20 | | | 10 MG tablet | mouth every 6 hours | tablet | | 17 | 7 | | | as needed. | | | | [...] + + + +---------+ + + | Lactobacillus | Take 1 tablet by | | 0 | | | | (PROBIOTIC | mouth Daily. | | | | 8 | | ACIDOPHILUS PO) | | | [...] + + | Multiple Vitamin | Take 1 capsule by | | 0 | | | | (MULTI-VITAMIN PO) | mouth Daily. | | | | 7 | + + + +---------+ + + [...] [place] | | | | | | [address] | | | | | | | | +--------+---------+ + + + documented as of this encounter Visit Diagnoses + + | Diagnosis | + + | Acute stress reaction - Primary Other acute reactions to stress | + + documented in this encounter Administered Medications + +--------+ +------+------+------+ | Medication Order | MAR | Action | Dose | Rate | Site | | | Action | Date | | | | + +--------+ +------+------+------+ | clonazePAM (klonoPIN) tablet 1 | Given | 04/02/20 | 1 mg | | | | mg 1 mg, Oral, ONCE, 04/02/17 | | 17 9:01 | | | | | at 2100, For 1 dose, Reproductive | | PM PDT | | | | | Risk: Use appropriate handling | | | | | | | precautions., | | | | | | + +--------+ +------+------+------+ +---+---+ | | | +---+---+ + +---------+ +--------+-------+---+ | sodium chloride 0.9% (NS) bolus | New Bag | 04/02/20 | 1,000 | 2000 | | | 1,000 mL 1,000 mL, Intravenous, | | 17 9:02 | mLs | mL/hr | | | Administer over 30 Minutes, | | PM PDT | | | | | ONCE, 04/02/17 at 2020, For 1 | | | | | | | dose | | | | | | + +---------+ +--------+-------+---+ +---+---+ | | | +---+---+ documented in this encounter"
--- OUTSIDE RECORDS SUMMARY | ~2019-09-28 | XMS | Encounter Summary ---
Demographics + + + | Address | [address] | | | [place] [address] | + + + | Home Phone [...] Team Providers + +------+ + | Care Plum Packer Name | Role | Phone | + +------+ + | Romy De La Paz MD | PCP | | + +------+ + Reason for Visit + + + | Reason | Comments | + + + | Follow-up | | + + + Evaluate & Treat (Routine) + +--------+ + + + + | Status | Reason | Specialty | Diagnoses / | Referred By | Referred To | | | | | Procedures | Contact | Contact | + +--------+ + + + + | Authorized | | | Diagnoses | Cuong, | Toñito, | | | | | | MD Maykel | Denys Wallis DO | | | | | Degenerative | [address] | | | | | lumbar | [address] | [address] | | | | | spinal | [address] | [place] | | | | | stenosis | B | [address] | | | | | | [place], [place] | Phone: | | | | | | [phone] | [phone] | | | | | | Phone: | Fax: | | | | | | [phone] | [phone] | | | | | | Fax: | | | | | | | [phone] | | + +--------+ + + + + Encounter Details +--------+---------+ + + + | Date | Type | Department | Care Team | Description | +--------+---------+ + + + | 06/18/ | Office | [facility] | Denys Sibley, | SACROILIITIS | | 2018 | Visit | [facility] | DO [address] | (Primary Dx); | | | | [address] | Spondylosis of | | | | [address] | [address] | lumbar region | | | | [place], [place] | | without myelopathy | | | | [address] | | or radiculopathy; | | | | [phone] | | BACK PAIN, LUMBAR; | | | | | | Strain of lumbar | | | | | | region, sequela; | | | | | | Chronic bilateral | | | | | | low back pain with | | | | | | right-sided | | | | | | sciatica; Facet | | | | | | arthritis of lumbar | | | | | | region; Foraminal | | | | | | stenosis of lumbar | | | | | | region - left L5-S1; | | | | | | Intervertebral disc | | | | | | disorders with | | | | | | radiculopathy, | | | | | | lumbosacral region; | | | | | | Spondylosis without | | | | | | myelopathy or | | | | | | radiculopathy, | | | | | | lumbosacral region; | | | | | | Spondylosis without | | | | | | myelopathy or | | | | | | radiculopathy, | | | | | | cervical region; | | | | | | Chronic bilateral | | | | | | low back pain | | | | | | without sciatica; | | | | | | Encounter for | | | | | | long-term use of | | | | | | opiate analgesic; | | | | | | Closed compression | | | | | | fracture of fifth | | | | | | lumbar vertebra, | | | | | | sequela; Lumbar | | | | | | region somatic | | | | | | dysfunction; Spinal | | | | | | stenosis of | | | | | | lumbosacral region; | | | | | | Intractable back | | | | | | pain; [facility] | | | | | | current use of | | | | | [...] + + + | Blood Pressure | 118/66 | 06/18/2019 9:59 AM | | | | | PDT | | + + + + + | Pulse | 84 | 06/18/2019 9:59 AM | | | | | PDT | | + + + + + | Temperature | - | - | | + + + + + | Respiratory Rate | 18 | 06/18/2019 9:59 AM | | | | | PDT | | + + + + + | Oxygen Saturation | 99% | 06/18/2019 9:59 AM | | | | | PDT | | + + + + + | Inhaled Oxygen | - | - | | | Concentration | | | | + + + + + | Weight | 50.5 kg (111 lb 6.4 | 06/18/2019 9:59 AM | | | | oz) | PDT | | + + + + + | Height | 154.9 cm (5' 1") | 06/18/2019 9:59 AM | | | | | PDT | | + + + + + | Body Mass Index | 21.05 | 06/18/2019 9:59 AM | | | | | PDT | | + + + + + documented in this encounter Patient Instructions Patient Instructions Denys Sibley DO - 06/18/2019 10:20 AM PDT Naloxone nasal spray Brand Name: Narcan What is this medicine? NALOXONE (nal OX one) is a narcotic [place]. It is used to treat narcotic drug overdose. How should I use this medicine? This medicine is for use in the nose. Lay the person on their back. Support their neck with your hand and allow the head to tilt back before giving the medicine. The nasal spray shoul d be given into 1 nostril. After giving the medicine, move the person onto their side. Do no t remove or test the nasal spray until ready to use. Get emergency medical help right away after giving the first dose of this medicine, even if the person wakes up. You should be familiar with how to recognize the signs and symptoms of a narcotic overdose. If more doses are needed, give the additional dose in the other nostri l. Talk to your progressive assembler and fitter regarding the use of this medicine in children. While this drug m ay be prescribed for children as young as newborns for selected conditions, precautions do a pply. What side effects may I notice from receiving this medicine? Side effects that you should report to your doctor or health clinical care leader as soon as p ossible: allergic reactions like skin rash, itching or hives, swelling of the face, lips, or tong ue breathing problems fast, irregular heartbeat high blood pressure pain that was controlled by narcotic pain medicine seizures Side effects that usually do not require medical attention (report to your doctor or health clinical care leader if they continue or are bothersome): anxious chills diarrhea fever headache muscle pain nausea, vomiting nose irritation like dryness, congestion, and swelling sweating What may interact with this medicine? This medicine is only used during an emergency. No interactions are expected during emergen cy use. What if I miss a dose? This does not apply. Where should I keep my medicine? Keep out of the reach of children. Store between 4 and 40 degrees C (39 and 104 degrees F). Do not freeze. Throw away any unus ed medicine after the expiration date. Keep in original box until ready to use. What should I tell my health care provider before I take this medicine? They need to know if you have any of these conditions: drug abuse or addiction heart disease an unusual or allergic reaction to naloxone, other medicines, foods, dyes, or preservati ves or trying to get breast-feeding What should I watch for while using this medicine? Keep this medicine ready for use in the case of a narcotic overdose. Make sure that you hav e the phone number of your doctor or health clinical care leader and local hospital ready. You may need to have additional doses of this medicine. Each nasal spray contains a single dose. Some emergencies may require additional doses. After use, bring the treated person to the nearest hospital or call 911. Make sure the [facility] health clinical care leader knows that the person has received an injection of this medici ne. You will receive additional instructions on what to do during and after use of this medi cine before an emergency occurs. NOTE:This sheet is a summary. It may not cover all possible information. If you have questi ons about this medicine, talk to your doctor, pharmacist, or health care provider. Copyright 2019 [employer] documented in this encounter Progress Notes Denys Sibley DO - 06/18/2019 10:20 AM PDTFormatting of this note might be different fr om the original. Patient returns for medication review and adjustment as deemed necessary for medical manage ment and insurance issues urrent medications include fentanyl patch applied to the anterior chest wall 25 mg q72 hours,andNorco 7.5/325 one po q6 hours prn breakthrough pain VS Stable; Alert and Oriented X 4 ; B&B Continent ; Sleep OK ; Appetite Good ; Skin Int act Current pain problems are being met with current medication regime including but not limited to analgesics, NSAIDS ,neuronal pathway modulators, and medication for improved sl eep and restfulness Current Outpatient Medications: clonazePAM (KLONOPIN) 1 mg tablet, Take 1-2 mg by mouth nightly as needed for Anxiety. , Disp: , Rfl: fentaNYL (DURAGESIC) 25 mcg/hr, Place 1 patch onto the skin every 72 hours., Disp: , R fl: HYDROcodone-acetaminophen (NORCO) 10-325 mg per tablet, Take 1 tablet by mouth 4 times daily., Disp: , Rfl: ibuprofen (ADVIL,MOTRIN) 600 MG tablet, Take 600 mg by mouth every 6 hours as needed f or Pain., Disp: , Rfl: levothyroxine (SYNTHROID) 100 mcg tablet, Take 100 mcg by mouth every morning (before breakfast)., Disp: , Rfl: lidocaine-prilocaine (EMLA) cream, Apply to affected area 2 or 3 times a day, Disp: , Rfl: Loratadine 10 MG CAPS, Take 10 mg by mouth Daily as needed., Disp: , Rfl: methocarbamol (ROBAXIN) 500 mg tablet, Take 500 mg by mouth 4 (four) times daily., Dis p: , Rfl: Multiple Vitamins-Minerals (MULTIVITAMIN WITH MINERALS) tablet, Take 1 tablet by mouth daily., Disp: , Rfl: ondansetron (ZOFRAN) 24 MG tablet, Take 24 mg by mouth once., Disp: , Rfl: raNITIdine (ZANTAC) 150 mg tablet, Take 150 mg by mouth 2 (two) times daily., Disp: , Rfl: rOPINIRole (REQUIP) 4 mg tablet, Take 4 mg by mouth 4 times daily., Disp: , Rfl: Current Pain Level 2/10 Worst 7/10 Best 1/10 Past Medical History: Diagnosis Date Acute renal failure (HCC) April 2013 Anesthesia hallucinated after bladder repair Arthralgia Asthma Asthma Cancer ([facility]) 2004 breast Cerebrovascular accident (CVA) ([facility]) no per pt Chronic back pain Chronic back pain Concussion 07/2015 Preceeded by seizure Constipation COPD (chronic obstructive pulmonary disease) ([facility]) Degenerative disc disease Depression Depression Diabetes mellitus (HCC) Diabetes mellitus, type 2 (HCC) diet controlled Diarrhea Disorder of thyroid [...] Scoliosis Scoliosis of lumbar spine 04/17/2014 Seizure ([facility]) one due to meds, two due to dehydration at least couple years ago Strain of lumbar region 02/25/2019 Syncope and collapse Tardive dyskinesia Use of cane as ambulatory aid ROS Unchanged from previous visit BP 118/66 | Pulse 84 | Resp 18 | Ht 1.549 m (5' 1") | Wt 50.5 kg (111 lb 6.4 oz) | SpO 2 99% | BMI 21.05 kg/m HEENT : Unremarkable, PERRLA, EOMI Heart : HRRR LUNGS : Clear to auscultation bilateral post bases Abdomin : Soft, non tender, BS active X 4 Extremities : Warm and dry, negative edema, AROM BUE WFL ; MS 4/5 ; AROM BLE WFL, ;MS 4/5 Gait - WNL Improved Functional Status for Age Including ADL's, Mobility and Transfers where appropriate Assistive Devices : none LAB REVIEWED Availabl ] XRAYS REVIEWED Available No results found for this or any previous visit (from the past 360 hour(s)). IMPRESSION : chronic low back pain, chronic pain syndrome, lumbar spondylosis, lumbar spina l stenosis, degenerative joint disease of the spine chronic pain syndrome, Current long-ter m use of opioid analgesics PLAN : Patient appears to be at moderate risk category Alternative treatment modalitie s where discussed and offered to patient including but not limited to physical therapy, mass age therapy, acupuncture, spiritual care coordinator, along with recommended psychological counseling , either privately, or in group sessions offered by private care individuals, community serv ices, or pentecostalism organizations. Appropriate referrals were made at patient and/or provider request Narcan was prescribed, when appropriate, and patient instructed in its use for emergency on ly. Patient was given instructions on proper storage and disposal of medications including but not limited to current government regulations regarding this and or current official [facility] approved disposal sites. Continue current medication regime with these changes and/ or additions :refill her fenta nyl patch 25 by grams applied to the anterior chest wall q72 hours, and Norco7.5/325 one po q6 hours prn pain Patient understands and is in full agreement with the above plan, Will return to office in 4 weeks, [facility] was consulted and appears appropriate, Urine Toxicology screen is pending, Current Morphine milligram equivalents is 90 mg per day FOLLOW UP : As scheduled Responsible narcotic and sedative use was discussed with our patient. Prescription medicat ions that are used on a "prn" basis should only be taken when the pain is severe. Potential side effects in addition to the potential for abuse and addiction were discussed. Most pat ients, including the general public, are not aware that a number of these medicines are FDA approved for the treatment of severe pain associated with cancer and were never intended for use in patients that had surgically correctable conditions. When the pain is mild or moderate, ice, stretching, and relaxation techniques are useful. Also medicines such as plain tylenol, ibuprofen and aspirin are more suitable for mild or mo derate pain. Our patient was encouraged to read the package inserts to their prescriptions and to discus s these medicines with their personal physician or pharmacist. Narcotics, sedatives, muscle relaxants and neuroleptics are not benign medicines. Common side effect include nausea, vo miting, constipation, drowsiness, dizziness, headache, sleeplessness, and weakness. Difficu lty with urinating, decreased libido, and sexual dysfunction are noted in men and women. [facility] men will suffer erectile dysfunction with these medicines. Severe side effects including , heart attacks, strokes, seizures, and high fevers are noted from acute overdose or chronic overuse. Most patient develop tolerance to theses medi cines leading them to take more medicine for pain relief. This increasing tolerance leads t o a greater rate of side effects and complications with the passage of time. long term care phlebotomist use is also associated with depressions, and liver and renal failure. Finally, these medicines are associated with both physical and emotional addiction and can be difficult to stop after taking for only a few weeks. documented in this encounter Plan of Treatment +--------+---------+ + + + | Date | Type | Specialty | Care Team | Description | +--------+---------+ + + + | 10/15/ | Office | Pain Medicine | Denys Sibley, | | | 2018 | Visit | | DO [address] | | | | | | [place] | | | | | | [id number] | | | | | | | | +--------+---------+ + + + + +------+--------+ + + | Name | Type | Priori | Associated Diagnoses | Order Schedule | | | | ty | | | + +------+--------+ + + | Drugs of Abuse, | Lab | Routin | [facility] current | Expected: | | Panel, Pain | | e | use of opiate | 06/25/2019, Expires: | | Management 2, Reflex | | | analgesic | 06/18/2020 | + +------+--------+ + + documented as of this encounter Visit Diagnoses + + | Diagnosis | + + | SACROILIITIS - Primary Sacroiliitis, not elsewhere classified | + + | Spondylosis of lumbar region without myelopathy or radiculopathy Lumbosacral | | spondylosis without myelopathy | + + | BACK PAIN, LUMBAR Lumbago | + + | Strain of lumbar region, sequela | + + | Chronic bilateral low back pain with right-sided sciatica | + + | Facet arthritis of lumbar region Lumbosacral spondylosis without myelopathy | + + | 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 Spinal stenosis, lumbar region, | | without neurogenic claudication | + + | Intervertebral disc disorders with radiculopathy, lumbosacral region | + + | Spondylosis without myelopathy or radiculopathy, lumbosacral region | + + | Spondylosis without myelopathy or radiculopathy, cervical region | + + | Chronic bilateral low back pain without sciatica | + + | Encounter for long-term use of opiate analgesic Encounter for long-term (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 | | of other medications | + + | Closed compression fracture of fifth lumbar vertebra, sequela | + + | Lumbar region somatic dysfunction Nonallopathic lesion of lumbar region, not | | elsewhere classified | + + | Spinal stenosis of lumbosacral region Spinal stenosis, lumbar region, without | | neurogenic claudication | + + | Intractable back pain Backache, unspecified | + + | long term care phlebotomist current use of opiate analgesic Encounter for long-term (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 of | | other medications | + + documented in this encounter
--- OUTSIDE RECORDS SUMMARY | ~2019-09-28 | XMS | Encounter Summary ---
Demographics + + + | Address | [address] | | | [place] [address] | + + + | Home Phone | | + + + | Preferred Language | Unknown | + + + | Marital Status | | + + + | Sikh Affiliation | 1013 | + + + | Race | Unknown | + + + | Ethnic Group | Unknown | + + + Author + + + | Author | [facility] | | | and Priteshana | + + + | Organization | [facility] | | [...] Team Providers + +------+ + | Care Purchasing Department Clerk Name | Role | Phone | + [...] | | | | | | | [place] SURG | | | | | | | IMPLNT | | | | | | | NEUROELECT,E | | | | | | | PIDURAL [place] | | | | | | | IMPLANT | | | | | | | NEUROSTIM/RE | | | | | | | CEIVER [place] | | | | | | | [...] + + | 08/03/ | Surgery | [facility] | Maykel Hutchins MD | LAMINOTOMY THORACIC | | 2019 | | [facility] | [address] | / LUMBAR W/ | | | | OPERATING ROOM [address] | [place] | PLACEMENT SPINAL | | | | [address] | [place] [address] | CORD STIMULATOR | | | | [place] | [phone] | | | | | [address] | | | | | | [phone] | | | +--------+---------+ + + + [...] note might be different from logan phillips. [facility]. 08/04/2019 DISCHARGE SUMMARY PATIENT NAME: Kori Mcintosh-Fawthrop [...] by elevating your feet Date Last Reviewed: 7912-9759 [employer]. [address] [place] [address]. All righ ts reserved. This information is not intended as a substitute for professional medical care. Always follow your healthcare professional's instructions. Acetaminophen; Hydrocodone tablets or capsules Brand Names: Anexsia, Lorcet, Lorcet HD, Lorcet Plus, Lortab, [place], Verdrocet, Vicodin, Vi codin ES, Vicodin HP, [...] information carefully each time. Talk to your creative services writer regarding the use of this medicine in children. Special care may be needed. What side effects may I notice from receiving this medicine? Side effects that you should report to your doctor or health home care physical therapist as soon as p ossible: allergic reactions [...] attention (report to your doctor or health home care physical therapist if they continue or are bothersome): constipation [...] official disposal site. Contact the JEF at or your [facility] to find a site. If you [...] this medicine? Tell your doctor or health home care physical therapist if your pain does not go away, [...] Decreased | | | | | | intermediate current | Responsiveness (May | | | [...] Faria MSW - 08/04/2019 2:12 PM PDTCase prep manager sent out Home Health order to [...] her up today to go home to [facility]. Past Medical History: Diagnosis Date Acid reflux disease Acute renal failure ([facility]) April 2013 Adverse effect of anesthesia hx hallucinations after anesthesia x 3 yrs ago. Anesthesia hallucinated after bladder repair Arthralgia Arthritis Asthma Asthma Back pain Cancer ([facility]) 2004 breast Cataract Cerebrovascular accident (CVA) ([facility]) no per pt Chronic back pain Chronic back pain Chronic constipation Concussion 07/2015 Preceeded by seizure Constipation COPD (chronic obstructive pulmonary disease) ([facility]) Degenerative disc disease Depression Depression Diabetes mellitus ([facility]) Diabetes mellitus, type 2 ([facility]) diet controlled Diabetes type 2, controlled ([facility]) diet controlled Diarrhea Disorder of thyroid [...] 100 mg Oral BID PRN Julien Guzman PARLIAMENTARY LIBRARIAN HYDROcodone-acetaminophen (NORCO) 10-325 mg per tablet 1 tablet 1 tablet Oral Q4H PRN Julien Guzman, PARLIAMENTARY LIBRARIAN 1 tablet at 08/04/19 0502 HYDROmorphone (DILAUDID) injection 0.2-0.4 mg 0.2-0.4 mg Intravenous Q1H PRN Maykel ortiz MD 0.2 mg at 08/03/19 1700 methocarbamol (ROBAXIN) tablet 1,500 mg 1,500 mg Oral Q6H PRN RENATO DavisP ondansetron (ZOFRAN ODT) disintegrating tablet 4 mg 4 mg Oral Q6H PRN Julien Guzman PARLIAMENTARY LIBRARIAN rOPINIRole (REQUIP) tablet 4 mg 4 mg Oral 4x Daily PRN Maykel Hutchins MD senna (SENOKOT) tablet 8.6 mg 8.6 mg Oral BID PRN Julien Guzman PARLIAMENTARY LIBRARIAN sodium chloride 0.45% (1/2 NS) infusion Intravenous Continuous Maykel Hutchins MD 100 mL /hr at 08/03/19 1342 950 mL at 08/03/19 1342 sodium chloride 0.45% (1/2 NS) infusion Intravenous Continuous Julien Guzman PARLIAMENTARY LIBRARIAN 100 m L/hr at 08/04/19 0057 Allergies [...] [place] | | | | | | [address] | | | | | | | [...] | | | Needs | | | TRUCK DESPATCHER | | | reques | | | [...] | | POC | performed at [facility];[address] | | LABORATORY | | | | [address];[place], [place] | | | | | | [address] | | | | + + + + + + + + | Specimen | + + | | + + + + + + + | Performing | Address | City/State/Zipcode | Phone Number | | Organization | | | | + + + + + | [facility] | [address] | [place] [address] | [phone] | + + + + + POC Glucose (08/03/2019 4:15 PM PDT) + + + + + + | Component | Value | Ref Range | Performed | Pathologist | | | | | At | Signature | + + + + + + | Glucose, | 99Comment: Testing | 65 - 99 mg/dL | [facility] | | | POC | performed at [facility];[address] | | LABORATORY | | | | [address];[place] | | | | | | [address] | | | | + + + + + + + + | Specimen | + + | | + + + + + + + | Performing | Address | City/State/Zipcode | Phone Number | | Organization | | | | + + + + + | [facility] | [address] | [place] [address] | [phone] | + + + + + POC [...] | | POC | performed at [facility];[address] | | LABORATORY | | | | [address];[place], [place] | | | | | | [address] | | | | + + + + + + + + | Specimen | + + | | + + + + + + + | Performing | Address | City/State/Zipcode | Phone Number | | Organization | | | | + + + + + | [facility] | [address] | [place] [address] | [phone] | + + + + + POC [...] | | POC | performed at [facility];[address] | | LABORATORY | | | | [address];[place] | | | | | | [address] | | | | + + + + + + + + | Specimen | + + | | + + + + + + + | Performing | Address | City/State/Zipcode | Phone Number | | Organization | | | | + + + + + | [facility] | [address] [facility] | [place] [address] | [phone] | + + + + + LINSEY [...] | | POC | performed at [facility];[address] | | LABORATORY | | | | [address];[place] | | | | | | [address] | | | | + + + + + + + + | Specimen | + + | | + + + + + + + | Performing | Address | City/State/Zipcode | Phone Number | | Organization | | | | + + + + + | [facility] | [address] | [place] [address] | [phone] | + + + + + POC Glucose (08/03/2019 9:14 AM PDT) + + + + + + | Component | Value | Ref Range | Performed | Pathologist | | | | | At | Signature | + + + + + + | Glucose, | 80Comment: Testing | 65 - 99 mg/dL | [facility] | | | POC | performed at [facility];[address] | | LABORATORY | | | | [address];[place] | | | | | | [address] | | | | + + + + + + + + | Specimen | + + | | + + + + + + + | Performing | Address | City/State/Zipcode | Phone Number | | Organization | | | | + + + + + | [facility] | [address] | [place] [address] | [phone] | + + + + + Type [...] + + + | BB BAND | [id number] | | [facility] | | | | | | LABORATORY | | + + + + + + | BB BAND | Testing performed at | | [facility] | | | | [facility];[address] | | LABORATORY | | | | Andrzej;[place] [address] | | | | + + + + + + + + | Specimen | + + | Blood | + + + + + + + | Performing | Address | City/State/Zipcode | Phone Number | | Organization | | | | + + + + + | [facility] | [address] | [place] [address] | [phone] | + + + + + POC [...] | | POC | performed at [facility];[address] | | LABORATORY | | | | [address];[place], [place] | | | | | | [address] | | | | + + + + + + + + | Specimen | + + | | + + + + + + + | Performing | Address | City/State/Zipcode | Phone Number | | Organization | | | | + + + + + | [facility] | [address] | [place] [address] | [phone] | + + + + + documented [...] | | | | | | | [facility] 08/03/19 at 1007, Intra-op | [...]
--- OUTSIDE RECORDS SUMMARY | ~2019-09-28 | XMS | Encounter Summary ---
Demographics + + + | Address | [address] | | | [place] [address] | + + + | Home Phone [...] Team Providers + +------+ + | Care Parachutist/Combatant Diver Qualified Name | Role | Phone | + +------+ + | Wendi Aiken | PCP | | + +------+ + Reason for Visit + + + | Reason | Comments | + + + | Medication Follow-up | | + + + Encounter Details +--------+ + + + + | Date | Type | Department | Care Team | Description | +--------+ + + + + | 04/10/ | Telephone | [facility] [place] | Nick Martinez, | Medication Follow-up | | 2017 | | PHYSIATRY [address] | PA-C [address] | | | | | [place], | [address] [place] | | | | | [place] [address] | [place] [address] | | | | | [phone] | [phone] | | | | | | | [...] [place] | | | | | | [address] | | | | | | | | +--------+---------+ + + + documented as of this encounter Visit Diagnoses Not on filedocumented in this encounter"
--- OUTSIDE RECORDS SUMMARY | ~2019-09-28 | XMS | Encounter Summary ---
Demographics + + + | Address | [address] | | | [place] [address] | + + + | Home Phone | | + + + | Preferred Language | Unknown | + + + | Marital Status | | + + + | Orthodox Affiliation | 1013 | + + + [...] Team Providers + +------+ + | Care Gardening Instructor Name | Role | Phone | + +------+ + | Oxana Nye | PCP | | + +------+ + Reason for Visit +---------+ + | Reason | Comments | +---------+ + | Results | | +---------+ + Encounter Details +--------+ + + + + | Date | Type | Department | Care Team | Description | +--------+ + + + + | 07/12/ | Telephone | [facility] [place] | Spenser, | Results | | 2015 | | PHYSIATRY [address] | [address] | | | | | [place], | [address] [place], | | | | | [place] [address] | [place] [address] | | | | | [phone] | [phone] | | | | | | | [...] [place] | | | | | | [address] | | | | | | | | +--------+---------+ + + + documented as of this encounter Visit Diagnoses Not on filedocumented in this encounter"
--- OUTSIDE RECORDS SUMMARY | ~2019-09-28 | XMS | Encounter Summary ---
Demographics + + + | Address | [address] | | | [place] [address] | + + + | Home Phone | | + + + | Preferred Language | Unknown | + + + | Marital Status | | + + + | Restorationist Affiliation | 1013 | + + + | Race | Unknown | + + + | Ethnic Group | Unknown | + + + Author + + + | Author | [facility] | | | and Priteshana | + + + | Organization | [facility] | | | [...] Team Providers + +------+ + | Care Rn Staffing Name | Role | Phone | + +------+ + | Wendi Aiken | PCP | | + +------+ + Reason for Visit + + + | Reason | Comments | + + + | Injections | | + + + Encounter Details +--------+ + + + + | Date | Type | Department | Care Team | Description | +--------+ + + + + | 04/06/ | Telephone | [facility] [place] | Shay Dietz | Injections | | 2018 | | PHYSIATRY [address] | [address] | | | | | [place], | [place], [place] | | | | | [place] [address] | [address] | | | | | [phone] | | | +--------+ + + + [...] [place] | | | | | | [address] | | | | | | | | +--------+---------+ + + + documented as of this encounter Visit Diagnoses Not on filedocumented in this encounter"
--- OUTSIDE RECORDS SUMMARY | ~2019-09-28 | XMS | Encounter Summary ---
Demographics + + + | Address | [address] | | | [place] [address] | + + + | Home Phone | | + + + | Preferred Language | Unknown | + + + | Marital Status | Single | + + + | Zoroastrian Affiliation | NON | + + + | Race | White | + + + | Ethnic Group | Not or | + + + Author + + + | Author | [facility] | + + + | Organization | [facility] | + + + | Address | Unknown | + + + | Phone | Unavailable | + + + Support + + +---------+ + | Name | Relationship | Address | Phone | + + +---------+ + | Royce Menchaca | ECON | Unknown | | + + +---------+ + Care Team Providers + +------+ + | Care Top Lift Scourer Name | Role | Phone | + +------+ + | Oxana Nye | PCP | | + +------+ + Encounter Details +--------+ + + + + | Date | Type | Department | Care Team | Description | +--------+ + + + + | 09/30/ | MyChart | Cardiology General | Airam Fuchs MD | RE: Do I really | | 2015 | Encounter | at [facility] [address] | [address] | havea problem with | | | | Abbe Soto Mailcode: | [address] [facility], | my heart. | | | | [address] | [place] [address] | | | | | [facility], | [phone] | | | | | [facility] | | | | | | floor [place], [place] | | | | | | [address] | | | | | | [phone] | | | +--------+ + + + [...]
--- OUTSIDE RECORDS SUMMARY | ~2019-09-28 | XMS | Encounter Summary ---
Demographics + + + | Address | [address] | | | [place] [address] | + + + | Home Phone | | + + + | Preferred Language | Unknown | + + + | Marital Status | | + + + | Cheondoism Affiliation | 1013 | + + + | Race | Unknown | + + + | Ethnic Group | Unknown | + + + Author + + + | Author | [facility] | | | and Priteshana | + + + | Organization | [facility] | | | [...] Team Providers + +------+ + | Care Personnel Clerks Supervisor Name | Role | Phone | + +------+ + PCP | Unavailable | + +------+ + Encounter Details +--------+ + + + + | Date | Type | Department | Care Team | Description | +--------+ + + + + | 08/31/ | Hospital | [facility] | | | | 2010 | Encounter | MED CTR LABORATORY | | | | | | [address] | | | | | | [place] | | | | | | [address] | | | | | | [phone] | | | +--------+ + + + [...] [place] | | | | | | [address] | | | | | | | | +--------+---------+ + + + documented as of this encounter Procedures + +--------+ + + + | Procedure Name | Priori | Date/Time | Associated Diagnosis | Comments | | | ty | | | | + +--------+ + + + | FERRITIN | Routin | 08/31/2011 | | Results for this | | | e | 3:58 PM | | procedure are in the | | | | PDT | | results section. | + +--------+ + + + documented in this encounter Results Ferritin (08/31/2011 3:58 PM PDT) + + + + + + | Component | Value | Ref Range | Performed | Pathologist | | | | | At | Signature | + + + + + + | FERRITIN | 50.3Comment: Testing | 11.0 - 306.9 | [facility] | | | | performed on the [facility] | ng/mL | [facility] | | | | [facility] | | MEDICAL | | | | Analyzer. | | CENTER - | | | | | | LABORATORY | | + + + + + + + + | Specimen | + + | | + + + + + + + | Performing | Address | City/State/Zipcode | Phone Number | | Organization | | | | + + + + + | [facility] | [address] | [place] | [phone] | | [facility] | | [address] | | | - LABORATORY | | | | + + + + + | [facility] | [address] | [place] | | | [facility] | | [address] | | | - LABORATORY | | | | + + + + + documented in this encounter Visit Diagnoses Not on filedocumented in this encounter"
--- OUTSIDE RECORDS SUMMARY | ~2019-09-28 | XMS | Encounter Summary ---
Demographics + + + | Address | [address] | | | [place] [address] | + + + | Home Phone [...] + | Organization | [facility] | | | and [...] Team Providers + +------+ + | Care Cabin Service Agent Name | Role | Phone | + +------+ + PCP | Unavailable | + +------+ + Encounter Details +--------+ + + + + | Date | Type | Department | Care Team | Description | +--------+ + + + + | 10/31/ | Hospital | [facility] | | | | 1999 - | Encounter | MED CTR CANCER | | | | | | [address] | | | | 03/16/ | | [place], [place] | | | | 2000 | | [address] | | | | | | [phone] | | | +--------+ + + + [...] [place] | | | | | | [address] | | | | | | | | +--------+---------+ + + + documented as of this encounter Visit Diagnoses Not on filedocumented in this encounter"
--- OUTSIDE RECORDS SUMMARY | ~2019-09-28 | XMS | Encounter Summary ---
Demographics + + + | Address | [address] | | | [place] [address] | + + + | Home Phone | | + + + | Preferred Language | Unknown | + + + | Marital Status | | + + + | Sikh Affiliation | 1013 | + + + | Race | Unknown | + + + | Ethnic Group | Unknown | + + + Author + + + | Author | [facility] | | | and Priteshana | + + + | Organization | [facility] | | | and [...] Team Providers + +------+ + | Care Equine Pharmacology Technician Name | Role | Phone | [...] + + | 08/06/ | Telephone | [facility] | Maykel Hutchins MD | Medication Question | | 2019 | | [facility] | [address] | | | | | ORTHOPEDIC SPINE | [place] | | | | | [address] [place] | [place] [address] | | | | | [place] | [phone] | | | | | [address] | | | | | | [phone] | | | +--------+ + + + [...] 10/15/ | Office | Pain Medicine | Laraiso, Denys G, | | | 2019 | Visit | | DO [address] | | | | | | [place] | | | | | | [address] | | | | | | | | +--------+---------+ + + + documented as of this encounter Visit Diagnoses Not on filedocumented in this encounter"
--- OUTSIDE RECORDS SUMMARY | ~2019-09-28 | XMS | Encounter Summary ---
Demographics + + + | Address | [address] | | | [place] [address] | + + + | Home Phone | | + + + | Preferred Language | Unknown | + + + | Marital Status | | + + + | Faith Affiliation | 1013 | + + + | Race | Unknown | + + + | Ethnic Group | Unknown | + + + Author + + + | Author | [facility] | | | and Priteshana | + + + | Organization | [facility] | | [...] Team Providers + +------+ + | Care Exhibits Manager Name | Role | Phone | + +------+ + | Concepción Gallardo NP | PCP | | + +------+ + Reason for Visit + + + | Reason | Comments | + + + | Records Request | | + + + Encounter Details +--------+ + + + + | Date | Type | Department | Care Team | Description | +--------+ + + + + | 12/18/ | Telephone | [facility] [place] | Sj Valdes MD | Records Request | | 2015 | | NEUROSURGERY [address] | [address] | | | | | [address] | [place] [address] | | | | | [place] | [phone] | | | | | [address] | | | | | | [phone] | | | +--------+ + + + [...] 2018 | Visit | | DO [address] | | | | | | [address]IVE [place] | | | | | | [address] | | | | | | | | +--------+---------+ + + + documented as of this encounter Visit Diagnoses Not on filedocumented in this encounter"
--- OUTSIDE RECORDS SUMMARY | ~2019-09-28 | XMS | Encounter Summary ---
Demographics + + + | Address | [address] | | | [place] [address] | + + + | Home Phone | | + + + | Preferred Language | Unknown | + + + | Marital Status | | + + + | Congregation Affiliation | 1013 | + + + | Race | Unknown | + + + | Ethnic Group | Unknown | + + + Author + + + | Author | [facility] | | | and Priteshana | + + + | Organization | [facility] | | [...] Providers + +------+ + | Care Propulsion Generator Repairer Name | Role | Phone | + +------+ + | Romy De La Paz MD | PCP | | + +------+ + Encounter Details +--------+ + + + + | Date | Type | Department | Care Team | Description | +--------+ + + + + | 07/18/ | Clinical | [facility] | | Radiculopathy of | | 2019 | Support | NEUROSURGERY [address] | | thoracolumbar | | | | [address] [place] [address] | | region; | | | | [place], [place] | | Postlaminectomy | | | | [address] | | syndrome, thoracic | | | | [phone] | | region | +--------+ + + + + Social [...] + + + + | Weight | 50.8 kg (112 lb) | 07/18/2019 12:43 PM | | | | | PDT | | + + + + + | Height | 154.9 cm (5' 1") | 07/18/2019 12:43 PM | | | | | PDT | | + + + + + | Body Mass Index | 21.16 | 07/18/2019 12:43 PM | | | | | PDT | | + + + + + documented in this encounter Patient Instructions Patient Instructions Niki Pizarro RN - 07/18/2019 12:45 PM PDTPreOp Instructions: -Discontinue aspirin, coumadin, heparin, etc 5-7 days before surgery -Discontinue any NSAIDs, such as ibuprofen and aleve 5-7 days before surgery. -Take prescribed medications as directed for pain management. -Don't bend, twist, or lift anything greater than 5-10 lbs. -Take pain medication and muscle relaxer 1 hour apart, taking together increases drowsiness which increases risk of falls. -Reminder to go to pre-op appt at hospital, and take consent form. If you have any questions or concerns feel free to call us at [phone]. documented in this encounter Progress Notes Niki Pizarro RN - 07/18/2019 12:45 PM PDTPatient presents for pre-op visit re: their sc heduled T9-10 laminectomy for placement of spinal cord stimulator on 08/03/19. Patient repor ts pre-op symptoms of chronic thoracic and lumbar spine pain. Surgical informed consent sign ed by patient and witnessed per Dr. Hutchins 's instructions. Patient and friend present for this appointment. Pre-op and post-op instructions reviewed t o include: activity and restrictions, medications - stop NSAID's on 07/27/19, may resume 1 we ek post-op, diet - increase fluids and fiber intake, post-op wound care, when to call the do ctor. Advised patient to take pain medication and muscle relaxer 1 hour apart, taking togeth er increases drowsiness and risk of falls. Questions were addressed, patient and friend ligia balized understanding of given instruction. Patient states that she will on occasion run a Darby Smart ow grade fever and all tests and blood work come back negative infection, patient states she does have a history of UTI's as well. Patient was sent to [facility] for their scheduled pre-admit appointment, anesthesia consult, lab draw, EKG and chest xray. Orders entered per Dr. Hutchins's preference and hospital guidelines. Patient was given an appointment reminder for their first post-op visit on 08/16/19 @ 1340 and instructed to call in the interim with any problems or concerns. documented in this en counter Plan of Treatment +--------+---------+ + + + | Date | Type | Specialty | Care Team | Description | +--------+---------+ + + + | 10/15/ | Office | Pain Medicine | Denys Sibley, | | | 2018 | Visit | | DO [address] | | | | | | [place] | | | | | | [id number] | | | | | | | | +--------+---------+ + + + documented as of this encounter Visit Diagnoses + + | Diagnosis | + + | Radiculopathy of thoracolumbar region Thoracic or lumbosacral neuritis or | | radiculitis, unspecified | + + | Postlaminectomy syndrome, thoracic region | + + documented in this encounter
--- OUTSIDE RECORDS SUMMARY | ~2019-09-28 | XMS | Encounter Summary ---
Demographics + + + | Address | [address] | | | [place] [address] | + + + | Home Phone [...] Author + + + | Author | [facility] | + + + | Organization | [facility] | + + + | Address | Unknown | + + + | Phone | Unavailable | + + + Support + + +---------+ + | Name | Relationship | Address | Phone | + + +---------+ + | Royce Menchaca | ECON | Unknown | | + + +---------+ + Care Team Providers + +------+ + | Care Motion Picture Photographer Name | Role | Phone | + +------+ + | Miquel Calhoun MD | PCP | | + +------+ + Encounter Details +--------+ + + + + | Date | Type | Department | Care Team | Description | +--------+ + + + + | 09/13/ | Telephone | [facility] | Khushbu Cortez, | | | 2012 | | [facility] | SENIOR TAX ACCOUNTANT [place], [place] | | | | | [address] | [address] | | | | | [address] | | | | | | Aravind Hannon | | | | | | [place], [place] | | | | | | [address] | | | | | | [phone] | | | +--------+ + + + [...]
--- OUTSIDE RECORDS SUMMARY | ~2019-09-28 | XMS | Encounter Summary ---
Demographics + + + | Address | [address] | | | [place] [address] | + + + | Home Phone [...] Team Providers + +------+ + | Care Drop Hammer Setter Up Name | Role | Phone | + +------+ + | Romy De La Paz MD | PCP | | + +------+ + Reason for Visit +--------+ + | Reason | Comments | +--------+ + | Other | patient trying to reach Dr. Sibley's office | +--------+ + Encounter Details +--------+ + + + + | Date | Type | Department | Care Team | Description | +--------+ + + + + | 08/31/ | Telephone | [facility] | Niki Pizarro, | Other (patient | | 2019 | | NEUROSURGERY [address] | RN | trying to reach | | | | [address] | | [facility]'s office) | | | | [place] | | | | | | [address] | | | | | | [phone] | | | +--------+ + + + [...] [place] | | | | | | [address] | | | | | | | | +--------+---------+ + + + documented as of this encounter Visit Diagnoses Not on filedocumented in this encounter"
--- OUTSIDE RECORDS SUMMARY | ~2019-09-28 | XMS | Encounter Summary ---
Demographics + + + | Address | [address] | | | [place] [address] | + + + | Home Phone [...] + | Author | [facility] | | | and Priteshana | + + + | Organization | [facility] | | | and [...] Team Providers + +------+ + | Care Loan Underwriter Name | Role | Phone | + +------+ + | Concepción Gallardo NP | PCP | | + +------+ + Encounter Details +--------+ + + + + | Date | Type | Department | Care Team | Description | +--------+ + + + + | 11/26/ | Hospital | [facility] | Conversion | Peripheral vertigo, | | 2016 | Encounter | [facility] MRI [address] | Transaction, | unspecified | | | | [address] | Provider Unknown | laterality; | | | | [place], [place] | | Post-concussion | | | | [address] | (Fax) | vertigo | | | | [phone] | | | +--------+ + + + [...] Note by Rosy Bautista RN at 11/26/15 8336 Author: Rosy Bautista RN Service: (none) Author Type: Registered Nurse Filed: 11/26/15 7728 Date of Service: 11/26/15 1706 Status: Signed Rubber Tubing Backer: Rosy Bautista RN (Registered Nurse) Responded to [...] [place] | | | | | | [id number] | | | | | | | [...] At | + + + | [facility] 11/26/2015 10:44 AM HISTORY: Peripheral | | [...] Note | + + | Reji Pacheco Conversion - 06/14/2019 7:15 PM TRES BUTLER11/26/2015 [...] | | | Fingerstick | performed at [facility];[address] | | LAB | | | | [address];[place], [place] | | | | | | [address] | | | | + + + [...]
--- OUTSIDE RECORDS SUMMARY | ~2019-09-28 | XMS | Encounter Summary ---
Demographics + + + | Address | [address] | | | [place] [address] | + + + | Home Phone [...] Team Providers + +------+ + | Care Window Covering Sales Consultant Name | Role | Phone | + [...] Provider Unknown | | | | | [place], [place] | | | | | | [address] | (Fax) | | | | | [phone] | | | +--------+ + + + [...] [place] | | | | | | 959[address] | | | | | | | [...]
--- OUTSIDE RECORDS SUMMARY | ~2019-09-28 | XMS | Encounter Summary ---
Demographics + + + | Address | [address] | | | [place] [address] | + + + | Home Phone [...] Team Providers + +------+ + | Care Round Kiln Drawer Name | Role | Phone | + [...] | | | | CENTER [address] | [place] | Dx) | | | | [place] | [id number] | | | | | [address] | | | | | | [phone] | | | +--------+ + + + [...] [place] | | | | | | [address] | | | | | | | [...]
--- OUTSIDE RECORDS SUMMARY | ~2019-09-28 | XMS | Encounter Summary ---
Demographics + + + | Address | [address] | | | [place] [address] | + + + | Home Phone [...] Team Providers + +------+ + | Care Plate Maker Zinc Name | Role | Phone | + [...] | | | low back | PA-C [address] | [facility] [place] | | | | | pain with | [address] | [address] | | | | | right-sided | [place] | Phone: | | | | | sciatica | [address] | [phone] | | | | | Facet | Phone: | Fax: | | | | | arthritis of | [phone] | [phone] | | | | | lumbar | Fax: | | | | | | region | [phone] | | | | | | Adolescent | | | | | | | idiopathic [...] | +--------+ + + + + + Diagnostic/Screening (Routine) +--------+--------+ + + + + | Status | Reason | Specialty | Diagnoses / | Referred By | Referred To | | | | | Procedures | Contact | Contact | +--------+--------+ + + + + | Closed | | Radiology | Diagnoses | | [facility] | | | | | | [place], | [address] | | | | | Trochanteric | Yaneli, | [place], | | | | | bursitis of | PA-C [address] | [place] | | | | | right hip | [address] | [address] | | | | | Procedures | [place] | Phone: | | | | | [place] | [address] | [phone] | | | | | Joint | Phone: | Fax: | | | | | Injection | [phone] | [phone] | | | | | Right | Fax: | | | | | | | [phone] | | +--------+--------+ + + + + Reason for Visit + + + | Reason | Comments | + + + | Back Pain | low back pain radiating into right hip | + + + | Shoulder Pain | right shoulder | + + + Encounter Details +--------+---------+ + + + | Date | Type | Department | Care Team | Description | +--------+---------+ + + + | 02/08/ | Office | [facility] [place] | Shiracz, | Chronic bilateral | | 2017 | Visit | PHYSIATRY [address] | [place] [address] | low back pain with | | | | [address], | [address] [place], | right-sided sciatica | | | | [place] [address] | [place] [address] | (Primary Dx); Facet | | | | [phone] | [phone] | arthritis of lumbar | | | | | | region (HCC); | | | | | | Adolescent | | | | | | idiopathic scoliosis | | | | | | of lumbar region; | | | | | | Trochanteric | | | | | | bursitis of right | | | | | | hip; Spondylosis of | | | | | | lumbar region | | | | | | without myelopathy | | | | | | or radiculopathy | +--------+---------+ + + + Social [...] + + + | Blood Pressure | 124/63 | 02/08/2017 11:22 AM | | | | | PDT | | + + + + + | Pulse | 73 | 02/08/2017 11:22 AM | | | | | PDT [...] + + + + | Weight | 53.1 kg (117 lb) | 02/08/2017 11:22 AM | | | | | PDT | | + + + + + | Height | 154.9 cm (5' 1") | 02/08/2017 11:22 AM | | | | | PDT | | + + + + + | Body Mass Index | 22.11 | 02/08/2017 11:22 AM | | | | | PDT | | + + + + + documented in this encounter Patient Instructions Patient Instructions Yaneli Dueñas PA-C - 02/08/2017 11:42 AM PDT1) Bilateral L5/S1 facet steroid injection with right trochanteric bursa injection with Dr. Willard Facet Pain: The facet joint is located when the vertebrae (bones of the spine) connect to each other. Pain occurs with extension and rotation of the spine (bending backwards and rotating), bend ing over and lifting a heavy load, standing, first things in the morning. Images of the spi ne show facet arthritis, fluid in the facet joints. Treatment included rest, anti-inflammat ories, physical therapy focusing on core strengthening, facet steroid injections. Steroids are a very strong anti-inflammatory, this helps reduce pain by reducing swelling. Complications of steroids are bleeding, infection, and an increase of blood sugars if you are diabetic. 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 Facet joints are located when the vertebrae (bones of the spine) connect to each other. Typically these joints can have arthritis in this and give a person centralized low back pain. The procedure takes about 20 minutes. You lie on your b ack and x-rays are taken. Once the region is localized, it is numbed and then injected with steroid. Follow-up at the hospital thirty minutes before [...] of the procedure you must provide a straight truck driver to take you home. For all procedur es it is recommended that someone else drive you home. documented in this encounter Progress Notes Yaneli Dueñas PA-C - 02/08/2017 11:23 AM PDTFormatting of this note might be differe nt from the original. CHIEF COMPLAINT: Chief Complaint Patient presents with Back Pain low back pain radiating into right hip Shoulder Pain right shoulder HISTORY OF PRESENT ILLNESS: The patient is a 71 y.o. female being seen today in follow-up for complaints of low back pa in with right hip pain. The patient has been seen for this complaint in the past, with ini tial visit started by Dr. Dietz. Previously it was recommended that she receive a bila teral L5/S1 facet steroid injections, this was done 07/06/2016, she reports 6 months of good r elief. She also had a right trochanteric bursa steroid injection done the same day by me a nd reports increased pain for the first two days, but this greatly relieved her symptoms as well. She reports today having more low back pain with right leg pain. She reports her hip has b een hurting her. She reports her pain is sharp and shooting, worse with walking and lying o n that hip, the pain radiation down the right leg and into the right groin. She indicates h aving more low back pain that is aching and dull. 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 Her pain back is worse with bending over and better wit h rest, sitting in a chair. The patient does describe numbness of the [...] Loratadine 10 MG CAPS Take by mouth. Multiple Vitamin (MULTI-VITAMIN PO) Take 1 capsule by mouth Daily. ranitidine (ZANTAC) 150 MG capsule Take 150 mg by mouth as needed. Ropinirole HCl (REQUIP XL) 6 MG TB24 Take 4.5 mg by mouth as needed. No current facility-administered medications for this visit. [...] No abnormal bleeding PHYSICAL EXAMINATION: Filed Vitals: 02/08/17 1122 BP: 124/63 Pulse: 73 PainSc: 6 PainLoc: Back Body mass index is 22.12 kg/(m^2). GENERAL: The patient is well developed [...] has no apparent deficits with short or usp memory. She has appropriate fund of knowledge Cranial nerves 2-12 appear grossly intact. Sensory exam does not show diminished sensation to light touch in the lower extremities. REFLEX: RIGHT LEFT PATELLAR 2+ 2+ ACHILLES 2+ 2+ MUSCULOSKELETAL There is no major palpable deformity of the spine. Straight leg raise and slump-sit are negative. Alejandro's maneuver and impingement testing were negative for any groin pain but reproduced right lateral hip pain. There was tenderne ss to palpation over the right greater trochanters, none to the sacral sulci. The patient l ocalized the majority of the pain to the L5/S1 region and right lateral hip. Lumbar facet l oading was positive. Strength testing showed 5/5 strength throughout the lower extremities. The patient was able to heel and toe walk without difficulty. There was no redness, effus ion, warmth or joint line tenderness in the knees or ankles. RADIOGRAPHIC REVIEW: The patient's imaging was reviewed in detail with the patient today during the visit. Lumba r MRI from 2013 shows lumbar DDD, scoliosis, foraminal stenosis at L5/S1 on the left. ASSESSMENT: 1. Chronic bilateral low back pain with right-sided sciatica 2. Facet arthritis of lumbar region (HCC) 3. Adolescent idiopathic scoliosis of lumbar region 4. Trochanteric bursitis of right hip 5. Spondylosis of lumbar region without myelopathy or radiculopathy PLAN: 1. The patient has had significant conservative care including medications (NSAIDS and narc otics), PT (multiple sessions over the years) and director of career services. Unfortunately she lola nues to have significant discomfort. It appears to me that the pain is primarily coming fro m the lumbar facet joints. I did feel that she would be a good candidate for interventional procedures and I offered bilateral L5/S1 facet steroid injections. This will be done later today, she had not used any NSAIDS for the last 3 days. 2. She appears to also be suffering from right trochanteric bursitis. We discussed a ster oid injection to this area, to be done along with the facet steroid injections. 3. She expressed wanting to see Dr. Valdes and consider surgery again. She last saw him in , a physiatric evaluation was recommended,she did have this done with Dr. Menendez, but I do not see any notes on this. I have asked her to sign a waiver so we can obtain these note s, and then will sent a new referral to Dr. Valdes. Her most recent lumbar MRI is from 7. ELECTRONICALLY SIGNED BY: Yaneli Dueñas PA-C, 02/08/2017 CC: [place] docume doug in this encounter Plan of Treatment +--------+---------+ + + + | Date | Type | Specialty | Care Team | Description | +--------+---------+ + + + | 10/15/ | Office | Pain Medicine | Denys Sibley, | | | 2019 | Visit | | DO [address] | | | | | | [address] [place] | | | | | | [address] | | | | | | | | +--------+---------+ + + + + +---------+--------+ + + | Name | Type | Priori | Associated Diagnoses | Order Schedule | | | | ty | | | + +---------+--------+ + + | FL Major Joint | Imaging | Routin | Trochanteric | Expected: | | Injection Right | | e | bursitis of right | 02/08/2017, Expires: | | | | | hip | 02/09/2018 | + +---------+--------+ + + + + +--------+ + + | Name | Type | Priori | Associated Diagnoses | Order Schedule | | | | ty | | | + + +--------+ + + | [facility]B REFERRAL TO [facility] | Outpatient | Routin | Chronic bilateral | Ordered: 02/08/2017 | | [facility] [place] [facility] | Referral | e | low back pain with | | | | | | right-sided sciatica | | | | | | Facet arthritis of | | | | | | lumbar region (HCC) | | | | | | Adolescent | | | | | | idiopathic scoliosis | | | | | | of lumbar region | | | | | | Trochanteric | | | | | | bursitis of right | | | | | | hip Spondylosis of | | | | | | lumbar region | | | | | | without myelopathy | | | | | | or radiculopathy | | + + +--------+ + + documented as of this encounter Results FL Facet Injection Lumbar Sacral (02/08/2017 1:18 PM PDT) + + | Specimen | + + | | + + + + + | Narrative | Performed At | + + + | 02/08/2017 Bilateral Lumbar Facet Steroid Injections and Right | [facility] | | Trochanteric Bursa Injection Diagnosis: Lumbar Spondylosis and | [facility] | | Trochanteric Bursitis ICD-10 Code M47.816 and ICD-10 [place] | [facility] | | Harshal Rubio presents to the fluoroscopy suite for | - IMAGING | | fluoroscopically-guided bilateral L5-S1 facet injections as part of | | | conservative management for chronic pain with lumbar spondylosis. | | | Based on the patient's history, physical examination and review of the | | | available imaging the patient has been diagnosed with pain coming | | | primarily from the lumbar facet joints. The patient's pain has been | | | moderate to severe, rated as a 5-8 usually on a 0-10 scale. The | | | pain is impacting activities of daily living including any activity | | | that requires bending, lifting or twisting. The patient has been | | | dealing with this pain on and off for years and has failed | | | conservative treatment with NSAIDs, PT and a home exercise program. | | | She has received prior good relief with lumbar facet injections | | | which gave her 6 months of more than 50% relief therefore | | | therapeutic facet injections were ordered today by Yaneli | | | BRI Dueñas targeting the bilateral L5-S1 facet joints. | | | After informed consent was obtained, the patient laid in the prone | | | position on the fluoroscopy table. The areas were identified under | | | fluoroscopic guidance. The areas were prepped and draped in sterile | | | fashion. A 25-gauge, 1.5-inch needle was inserted into each region and | | | approximately 3 mL of buffered 1% lidocaine was infused. Then, a | | | 22-gauge spinal needle was inserted into the superior portion of | | | each facet under fluoroscopic guidance. Confirmation into the joint | | | spaces was obtained with infusion of approximately 1 mL of Omnipaque | | | contrast which showed outline of the facet joints. Then, a | | | combination of 1 mL of 1% lidocaine and 1 mL of 40 mg/mL Kenalog was | | | infused divided between the 2 joints. A right trochanteric bursa | | | injection was also performed with fluoroscopic guidance. The area | | | for the injection was located by palpation and fluoroscopic | | | guidance then marked over the lateral hip. The area was then | | | sterilized with chlorhexidine scrub before inserting a 1-1/2 inch | | | 27-gauge needle into the region to administer approximately 2 mL of | | | buffered 1% lidocaine for local anesthesia. Then a 22 gauge spinal | | | needle was advanced down to the greater trochanter under | | | fluoroscopic guidance. Next, a small amount of contrast was then | | | infused to insure that there was no vascular uptake. A total volume | | | of 5 mL including 1 mL of triamcinolone ( 40 milligrams per mL) and | | | 4 mL of 1% lidocaine was then infused. The needle was removed and | | | the area was cleaned and bandaged. The patient tolerated the | | | procedures well without complications. She did have a slight | | | vaso-vagal reaction and light-headedness which resolved fairly | | | quickly. Pre- and post-procedure blood pressures were both fairly | | | low but reportedly near her normal values. The patient was given | | | verbal as well as written follow-up instructions. The patient | | | was reexamined after the procedure. She reported good improvement | | | of her back pain symptoms after the procedure. The patient's | | | symptoms were improved even with bending and twisting maneuvers. | | | The patient was instructed to keep a detailed pain diary of the | | | response to treatment and will return the pain diary to our office 2 | | | weeks after the procedure. Prior to the start of the procedure, [...] Minimal Complications: None Findings: As expected Anesthesia: Local | | | 1% Lidocaine | | + + + + + + + + | Performing | Address | City[facility]State[facility] | Phone Number | | Organization | | | | + + + + + | [facility] | [address] | [place], [place] | [phone] | | [facility] | | [address] | | | - IMAGING | | | | + + + + + documented in this encounter Visit Diagnoses + + | Diagnosis | + + | Chronic bilateral low back pain with right-sided sciatica - Primary | + + | Facet arthritis of lumbar region Lumbosacral spondylosis without myelopathy | + + | Adolescent idiopathic scoliosis of lumbar region Scoliosis (and kyphoscoliosis), | | idiopathic | + + | Trochanteric bursitis of right hip Enthesopathy of hip region | + + | Spondylosis of lumbar region without myelopathy or radiculopathy Lumbosacral | | spondylosis without myelopathy | + + documented in this encounter
--- OUTSIDE RECORDS SUMMARY | ~2019-09-28 | XMS | Encounter Summary ---
Demographics + + + | Address | [address] | | | [place] [address] | + + + | Home Phone | | + + + | Preferred Language | Unknown | + + + | Marital Status | | + + + | Catholic Affiliation | 1013 | + + + | Race | Unknown | + + + | Ethnic Group | Unknown | + + + Author + + + | Author | [facility] | | | and Priteshana | + + + | Organization | [facility] | | [...] Team Providers + +------+ + | Care Petroleum Analyst Name | Role | Phone | + +------+ + | Romy De La Paz MD | PCP | | + +------+ + Encounter Details +--------+---------+ + + + | Date | Type | Department | Care Team | Description | +--------+---------+ + + + | 09/17/ | Office | [facility] | Denys Sibley G, | S/P insertion of | | 2018 | Visit | [facility] | DO [address] | spinal cord | | | | [address] | [address] [place], [place] | stimulator (Primary | | | | [address] | [address] | Dx); Spinal stenosis | | | | [place], [place] | | of lumbosacral | | | | [address] | | region; Lumbar | | | | [phone] | | region somatic | | | [...] anterior chest wall ever y 72 hours. [place] 10/325 1 p.o. every 6 hours as [...] including but not limited to physical therapy, furnace caretaker, acupuncture, massage therapy, and nutritional healt h [...] general activity) Total score: (Printable questionnaires in Bhutanese ) Interpretation of Total Score: PEG scores are used to track changes over time. It should de crease after therapy has begun. Last 4 PEG Scores: No flowsheet data found. Opioid Risk Tool (ORT): Total Score Pulse: 78 Resp: 16 BP: 102/52 SpO2: 98 % (From Chronic Pain tab; printable questionnaires in Bhutanese) Interpretation of Total Score: 0 to 3 [...] Date Acid reflux disease Acute renal failure ([facility]) April 2013 Adverse effect of anesthesia hx hallucinations after anesthesia x 3 yrs ago. Anesthesia hallucinated after bladder repair Arthralgia Arthritis Asthma Asthma Back pain Cancer ([facility]) 2004 breast Cataract Cerebrovascular accident (CVA) ([facility]) no per pt Chronic back pain Chronic back pain Chronic constipation Concussion 07/2015 Preceeded by seizure Constipation COPD (chronic obstructive pulmonary disease) ([facility]) Degenerative disc disease Depression Depression Diabetes mellitus ([facility]) Diabetes mellitus, type 2 ([facility]) diet controlled Diabetes type 2, controlled ([facility]) diet controlled Diarrhea Disorder of thyroid Diverticulosis [...] Scoliosis Scoliosis of lumbar spine 04/17/2014 Seizure ([facility]) one due to meds, two due to [...] Arthralgia Arthritis Asthma Asthma Back pain Cancer ([facility]) 2004 breast Cataract Cerebrovascular accident (CVA) ([facility]) no per pt Chronic back pain Chronic back pain Chronic constipation Concussion 07/2015 Preceeded by seizure Constipation COPD (chronic obstructive pulmonary disease) ([facility]) Degenerative disc disease Depression Depression Diabetes mellitus (HCC) Diabetes mellitus, type 2 (HCC) diet controlled Diabetes type 2, controlled ([facility]) diet controlled Diarrhea Disorder of thyroid Diverticulosis [...] Procedure: KYPHOPLASTY; Surgeon: Alfredo Casillas DO; Location: [facility] MAIN OR; Service: Pa in Management; Laterality: N/A; L5 FRACTURE SURGERY ANKLE HERNIA REPAIR HYSTERECTOMY HYSTERECTOMY LAMINECTOMY N/A 08/03/2019 Procedure: LAMINOTOMY THORACIC / LUMBAR W/ PLACEMENT SPINAL CORD STIMULATOR; Surgeon: Suly Hutchins MD; [place] [facility] [place] OTHER SURGICAL HISTORY EPIDURAL STEROID [...] reviewed, listed controlled substances are consistent with [facility] prescriptions and patient reported use. Controlled Medications: [...] than left and will follow up with cardiac rehabilitation specialist I believe regarding the shoulder pain [...] imited to physical therapy, massage therapy, acupuncture, furnace caretaker, along with niki mmended psychological counseling, either privately, or in group sessions offered by private care individuals, community services, or tenriism organizations. Appropriate referrals were made at patient [...] are noted in men and women. Ma mi men will suffer erectile dysfunction with these [...] and complications with the passage of time. foreign law consultant use is also associated with depressions, and liver and renal failure. Finally, these medicines are associated with both physical and emotional addiction and can be difficult to stop after taking for only a few weeks. This document has been created using [employer] Voice Recognition software and Mover. The entry has been reviewed for content and accuracy, but there may still exist "sound alike" tow boat captain word errors and/or unintended additions and deletions. [...] [place] | | | | | | [address] | | | | | | | [...]
--- OUTSIDE RECORDS SUMMARY | ~2019-09-28 | XMS | Encounter Summary ---
Demographics + + + | Address | [address] | | | [place] [address] | + + + | Home Phone [...] Team Providers + +------+ + | Care Thermal Cutting Tracer Machine Operator Name | Role | Phone | [...] + + | 07/20/ | Telephone | [facility] | Maykel Hutchins MD | Procedure (Question) | | 2019 | | [facility] | [address] | | | | | ORTHOPEDIC SPINE | [place] | | | | | [address] [place] | [place] [address] | | | | | [place] | [phone] | | | | | [address] | | | | | | [phone] | | | +--------+ + + + [...] [place] | | | | | | [address] | | | | | | | | +--------+---------+ + + + documented as of this encounter Visit Diagnoses Not on filedocumented in this encounter"
--- OUTSIDE RECORDS SUMMARY | ~2019-09-28 | XMS | Encounter Summary ---
Demographics + + + | Address | [address] | | | [place] [address] | + + + | Home Phone | | + + + | Preferred Language | Unknown | + + + | Marital Status | | + + + | Bahai Affiliation | 1013 | + + + | Race | Unknown | + + + | Ethnic Group | Unknown | + + + Author + + + | Author | [facility] | | | and Priteshana | + + + | Organization | [facility] | [...] Team Providers + +------+ + | Care Lab Nurse Name | Role | Phone | + [...] Chronic low | [place], | [address] | | | | | back pain | Shay Mukherjee MD | [place], | | | | | Lumbar | [address] | [place] | | | | | radiculopath | [place] | [address] | | | | | y | [place], [place] | Phone: | | | | | Procedures | [address] | [phone] | | | | | MRI Lumbar | Phone: | Fax: | | | | | Spine wo | [phone] | [phone] | | | | | Contrast | Fax: | | | | | | MRI | [phone] | | +--------+--------+ + + + + [...] Chronic low | [place], | [address] | | | | | back pain | Shay Mukherjee MD | [place], | | | | | Lumbar | [address] | [place] | | | | | radiculopath | [place] | [address] | | | | | y | [place], [place] | Phone: | | | | | Procedures | [address] | [phone] | | | | | MRI Lumbar | Phone: | Fax: | | | | | Spine wo | [phone] | [phone] | | | | | Contrast | Fax: | | | | | | MRI | [phone] | | +--------+--------+ + + + + Encounter Details +--------+ + + + + | Date | Type | Department | Care Team | Description | +--------+ + + + + | 04/12/ | Hospital | [facility] | Shay Dietz | Chronic low back | | 2013 | Encounter | MED CTR MRI [address] | T, [address] | pain; Lumbar | | | | [address], | [place], [place] | radiculopathy | | | | [place] [address] | [address] | | | | | [phone] | | | +--------+ + + + [...] [place] | | | | | | [address] | | | | | | | [...] + | MISCELLANEOUS LAB | | | [phone] | + +---------+ + + | MISCELANIOUS LAB | | | [phone] | + +---------+ + + documented in this encounter Visit Diagnoses + + | Diagnosis | + + | Chronic low back pain Lumbago | + + | Lumbar radiculopathy Thoracic or lumbosacral neuritis or radiculitis, unspecified | + + documented in this encounter"
--- OUTSIDE RECORDS SUMMARY | ~2019-09-28 | XMS | Encounter Summary ---
Demographics + + + | Address | [address] | | | [place] [address] | + + + | Home Phone | | + + + | Preferred Language | Unknown | + + + | Marital Status | | + + + | Spiritism Affiliation | 1013 | + + + | Race | Unknown | + + + | Ethnic Group | Unknown | + + + Author + + + | Author | [facility] | | | and Priteshana | + + + | Organization | [facility] | | | [...] Team Providers + +------+ + | Care Flexo Folder Gluer Operator Name | Role | Phone | [...] | Closed | | | Diagnoses | [place], | [facility] | | | | | Lumbar | [facility] | | | | | radiculopath | [address] | | | | | y | [address] | [address] | | | | | Procedures | [address] | [place], [place] | | | | | MRI Lumbar | [place], | [address] | | | | | Spine wo | [place] [address] | Phone: | | | | | Contrast | Phone: | [phone] | | | | | | [phone] | Fax: | | | | | | Fax: | [phone] | | | | | | [phone] | | +--------+--------+ + + + + Reason for Visit + + + | Reason | Comments | + + + | Follow-up | Discuss Injections | + + + Encounter Details +--------+---------+ + + + | Date | Type | Department | Care Team | Description | +--------+---------+ + + + | 04/03/ | Office | [facility] | Juan, Nick, | Lumbar radiculopathy | | 2018 | Visit | PH[address]SIATRY [address] | PA-C [address] | (Primary Dx); BACK | | | | [place], | [address] [place] | PAIN, LUMBAR; | | | | [place] [address] | [place] [address] | SACROILIITIS; DDD | | | | [phone] | [phone] | (degenerative disc | | | | [...] of the procedure you must provide a cdl dedicated truck driver to take you home. For [...] press against a nerve. Date Last Reviewed: 08/03/[id number] [employer] [address] [place] [address], [place] [address]. All righ ts reserved. This information is [...] and working more hours due to the [employer] Round up. Her pain ba ck is [...] prior L5-S1 injections and facet injections w doen Dietz, physical therapy, narcotic medications, NSAIDS and [...] has no apparent deficits with short or terminal supervisor memory. She has appropriate fund of knowledge [...] [place] | | | | | | [address] | | | | | | | [...]
--- OUTSIDE RECORDS SUMMARY | ~2019-09-28 | XMS | Encounter Summary ---
Demographics + + + | Address | [address] | | | [place] [address] | + + + | Home Phone | | + + + | Preferred Language | Unknown | + + + | Marital Status | | + + + | Methodist Affiliation | 1013 | + + + | Race | Unknown | + + + | Ethnic Group | Unknown | + + + Author + + + | Author | [facility] | | | and Priteshana | + + + | Organization | [facility] | | [...] Team Providers + +------+ + | Care Tunneller Name | Role | Phone | + +------+ + | Concepción Gallardo NP | PCP | | + +------+ + Encounter Details +--------+ + + + + | Date | Type | Department | Care Team | Description | +--------+ + + + + | 08/05/ | Hospital | [facility] | Shirahumble, | Foraminal stenosis | | 2013 | Encounter | MED CTR XRAY [address] | [place] [address] | of lumbar region - | | | | [place] | [place], | left L5-S1; Left | | | | [place] [address] | [place] [address] | lumbar | | | | [phone] | [phone] | radiculopathy; DDD | | | | | | (degenerative disc | | | | | Optical Sales Associate, [place] | disease), lumbar; | | | | | | Facet arthritis of | | | | | | lumbar region | +--------+ + + + + [...] this encounter Last Filed Vital Signs + +---------+ + + | Vital Sign | Reading | Time Taken | Comments | + +---------+ + + | Blood Pressure | 118/67 | 08/05/2014 2:02 PM | | | | | PDT | | + +---------+ + + | Pulse | 81 | 08/05/2014 2:02 PM | | | | | PDT | | + +---------+ + + | Temperature | - | - | | + +---------+ + + | Respiratory Rate | - | - | | + +---------+ + + | Oxygen Saturation | - | - | | + +---------+ + + | Inhaled Oxygen | - | - | | | Concentration | | | | + +---------+ + + | Weight | - | - | | + +---------+ + + | Height | - | - | | + +---------+ + + | Body Mass Index | - | - | | + +---------+ + + documented in this encounter Medications [...] [place] | | | | | | [address] | | | | | | | | +--------+---------+ + + + documented as of this encounter Procedures + +--------+ + + + | Procedure Name | Priori | Date/Time | Associated Diagnosis | Comments | | | ty | | | | + +--------+ + + + | FL EPIDURAL STEROID | Routin | 08/05/2014 | Foraminal stenosis | Results for this | | INJECTION LUMBAR | e | 1:53 PM | of lumbar region - | procedure are in the | | TRANSFORAMINAL | | PDT | left L5-S1 Left | results section. | | | | | lumbar radiculopathy | | | | | | DDD (degenerative | | | | | | disc disease), | | | | | | lumbar Facet | | | | | | arthritis of lumbar | | | | | | region | | + +--------+ + + + documented in this encounter Results FL BRITTNEY Lumbar Transforaminal [...] presents to the fluoroscopy suite for a [facility] | | fluoroscopically-guided left L5-S1 transforaminal [...] | + + + + + | [facility] | [address] | [place] | [phone] | | [facility] | | [address] | | | - IMAGING | | [...] | | | + +--------+ +------+------+------+ | betamethasone (CELESTONE | Given | 08/05/20 | 9 mg | | | | SOLUSPAN) injection 9 mg 9 mg, | | 14 2:00 | | | | | Other, ONCE, 08/05/14 at 1400, | | PM PDT | | | | | For 1 dose, Shake well. Not for | | | | | | | IV use., | | | | | | + +--------+ +------+------+------+ +---+---+ | | | +---+---+ + +-------+ +-------+---+---+ | iohexol (OMNIPAQUE 300) 300 | Given | 08/05/20 | 3 mLs | | | | mg/mL injection 3 mL 3 mL, | | 14 2:00 | | | | | INTRATHECAL, ONCE, 08/05/14 at | | PM PDT | | | | | 1400, For 1 dose | | | | | | + +-------+ +-------+---+---+ +---+---+ | | | +---+---+ + +-------+ +-------+---+ + | lidocaine 1% injection 5 mL 5 | Given | 08/05/20 | 5 mLs | | Other | | mL, Intradermal, ONCE, Mon | | 14 2:00 | | | (Comment | | 08/05/14 at 1400, For 1 dose | | PM PDT | | | ) | + +-------+ +-------+---+ + +---+---+ | | | +---+---+ + +-------+ +-------+---+---+ | sodium bicarbonate (NEUT) 4% | Given | 08/05/20 | 2 mLs | | | | injection 2 mL 2 mL, Topical, | | 14 2:00 | | | | | ONCE, 08/05/14 at 1400, For 1 | | PM PDT | | | | | dose | | | | | | + +-------+ +-------+---+---+ +---+---+ | | | +---+---+ documented in this encounter"
--- OUTSIDE RECORDS SUMMARY | ~2019-09-28 | XMS | Encounter Summary ---
Demographics + + + | Address | [address] | | | [place] [address] | + + + | Home Phone | | + + + | Preferred Language | Unknown | + + + | Marital Status | | + + + | Jainism Affiliation | 1013 | + + + | Race | Unknown | + + + | Ethnic Group | Unknown | + + + Author + + + | Author | [facility] | | | and Priteshana | + + + | Organization | [facility] | | | [...] Team Providers + +------+ + | Care Chief Executive Officer Name | Role | Phone | + +------+ + | Romy De La Paz MD | PCP | | + +------+ + Reason for Visit + + + | Reason | Comments | + + + | Back Pain | Severe pain | + + + Encounter Details +--------+ + + + + | Date | Type | Department | Care Team | Description | +--------+ + + + + | 08/31/ | Telephone | [facility] | Denys Sibley, | Back Pain (Severe | | 2019 | | NE[facility]ENCE [facility]ENTER | DO [address] | pain) | | | | [address] [place], [place] | | | | | [address] | [address] | | | | | [place], [place] | | | | | | [address] | | | | | | [phone] | | | +--------+ + + + [...] | | | | | | [address] [place], [place] | | | | | | [address] | | | | | | | | +--------+---------+ + + + documented as of this encounter Visit Diagnoses Not on filedocumented in this encounter"
--- OUTSIDE RECORDS SUMMARY | ~2019-09-28 | XMS | Encounter Summary ---
Demographics + + + | Address | [address] | | | [place] [address] | + + + | Home Phone | | + + + | Preferred Language | Unknown | + + + | Marital Status | | + + + | Jehovah'S Witness Affiliation | 1013 | + + + [...] Team Providers + +------+ + | Care Tack Puller Machine Name | Role | Phone | + +------+ + | Wendi Aiken | PCP | | + +------+ + Reason for Visit +--------+ + | Reason | Comments | +--------+ + | Other | Back Brace | +--------+ + Encounter Details +--------+ + + + + | Date | Type | Department | Care Team | Description | +--------+ + + + + | 04/17/ | Telephone | [facility] | Nick Martinez, | Other (Back Brace) | | 2017 | | PHYSIATRY [address] | PA-C [address] | | | | | [place], | [address] [place] | | | | | [place] [address] | [place] [address] | | | | | [phone] | [phone] | | | | | | | [...] [place] | | | | | | [address] | | | | | | | | +--------+---------+ + + + documented as of this encounter Visit Diagnoses Not on filedocumented in this encounter"
--- OUTSIDE RECORDS SUMMARY | ~2019-09-28 | XMS | Encounter Summary ---
Demographics + + + | Address | [address] | | | [place] [address] | + + + | Home Phone | | + + + | Preferred Language | Unknown | + + + | Marital Status | | + + + | Jain Affiliation | 1013 | + + + | Race | Unknown | + + + | Ethnic Group | Unknown | + + + Author + + + | Author | [facility] | | | and Priteshana | + + + | Organization | [facility] | | | [...] Team Providers + +------+ + | Care Hyperion Analyst Name | Role | Phone | + +------+ + | Romy De La Paz MD | PCP | | + +------+ + Encounter Details +--------+---------+ + + + | Date | Type | Department | Care Team | Description | +--------+---------+ + + + | 09/17/ | Office | [facility] | Denys Sibley G, | S/P insertion of | | 2018 | Visit | [facility] | DO [address] | spinal cord | | | | [address] | [address] [place], [place] | stimulator (Primary | | | | [address] | [address] | Dx); Spinal stenosis | | | | [place], [place] | | of lumbosacral | | | | [address] | | region; Lumbar | | | | [phone] | | region somatic | | | [...] anterior chest wall ever y 72 hours. [place] 10/325 1 p.o. every 6 hours as [...] including but not limited to physical therapy, ambulatory care nurse, acupuncture, massage therapy, and nutritional healt h [...] general activity) Total score: (Printable questionnaires in Indonesian ) Interpretation of Total Score: PEG scores are used to track changes over time. It should de crease after therapy has begun. Last 4 PEG Scores: No flowsheet data found. Opioid Risk Tool (ORT): Total Score Pulse: 78 Resp: 16 BP: 102/52 SpO2: 98 % (From Chronic Pain tab; printable questionnaires in Indonesian) Interpretation of Total Score: 0 to 3 [...] disease Acute renal failure ([facility]) April 2013 Adverse effect of anesthesia hx hallucinations after anesthesia x 3 yrs ago. Anesthesia hallucinated after bladder repair Arthralgia Arthritis Asthma Asthma Back pain Cancer ([facility]) 2004 breast Cataract Cerebrovascular accident (CVA) ([facility]) no per pt Chronic back pain Chronic back pain Chronic constipation Concussion 07/2015 Preceeded by seizure Constipation COPD (chronic obstructive pulmonary disease) ([facility]) Degenerative disc disease Depression Depression Diabetes mellitus ([facility]) Diabetes mellitus, type 2 ([facility]) diet controlled Diabetes type 2, controlled ([facility]) diet controlled Diarrhea Disorder of thyroid [...] lumbar spine 04/17/2014 Seizure ([facility]) one due to meds, two due [...] Asthma Back pain Cancer ([facility]) 2004 breast Cataract Cerebrovascular accident (CVA) ([facility]) no per pt Chronic back pain Chronic back pain Chronic constipation Concussion 07/2015 Preceeded by seizure Constipation COPD (chronic obstructive pulmonary disease) ([facility]) Degenerative disc disease Depression Depression Diabetes mellitus (HCC) Diabetes mellitus, type 2 (HCC) diet controlled Diabetes type 2, controlled ([facility]) diet controlled Diarrhea Disorder of thyroid [...] Procedure: KYPHOPLASTY; Surgeon: Alfredo Casillas DO; Location: [facility]; Service: Pa in Management; Laterality: [...] reviewed, listed controlled substances are consistent with [facility] prescriptions and patient reported use. Controlled Medications: [...] than left and will follow up with field talent qualification specialist I believe regarding the shoulder pain [...] imited to physical therapy, massage therapy, acupuncture, ambulatory care nurse, along with niki mmended psychological counseling, either privately, or in group sessions offered by private care individuals, community services, or anabaptist organizations. Appropriate referrals were made at patient [...] are noted in men and women. Ma pr men will suffer erectile dysfunction with these [...] and complications with the passage of time. manager terminal use is also associated with depressions, and liver and renal failure. Finally, these medicines are associated with both physical and emotional addiction and can be difficult to stop after taking for only a few weeks. This document has been created using [employer] Voice Recognition software and Performance [employer]. The entry has been reviewed for content and accuracy, but there may still exist "sound alike" weatherization field technician word errors and/or unintended additions and deletions. [...] [place] | | | | | | [address] | | | | | | | [...]
--- OUTSIDE RECORDS SUMMARY | ~2019-09-28 | XMS | Encounter Summary ---
Demographics + + + | Address | [address] | | | [place] [address] | + + + | Home Phone [...] Team Providers + +------+ + | Care Make Ready Mechanic Name | Role | Phone | + +------+ + PCP | Unavailable | + +------+ + Reason for Visit +--------+ + | Reason | Comments | +--------+ + | Other | | +--------+ + Encounter Details +--------+ + + + + | Date | Type | Department | Care Team | Description | +--------+ + + + + | 11/03/ | Telephone | [facility] [place] | Shay Dietz | Other | | 2012 | | PHYSIATRY [address] | T, MD [address] | | | | | [place], | [address] [place], [place] | | | | | [place] [address] | [address] | | | | | [phone] | | | +--------+ + + + [...] [place] | | | | | | [address] | | | | | | | | +--------+---------+ + + + documented as of this encounter Visit Diagnoses Not on filedocumented in this encounter"
--- OUTSIDE RECORDS SUMMARY | ~2019-09-28 | XMS | Encounter Summary ---
Demographics + + + | Address | [address] | | | [place] [address] | + + + | Home Phone | | + + + | Preferred Language | Unknown | + + + | Marital Status | Single | + + + | Rastafarian Affiliation | NON | + + + [...] Team Providers + +------+ + | Care Vice President [employer] Name | Role | Phone | + +------+ + PCP | Unavailable | + +------+ + Encounter Details +--------+ + + + + | Date | Type | Department | Care Team | Description | +--------+ + + + + | 06/26/ | Respiratory | | Other, Faculty | | | 2006 | Therapy | | [phone] | | +--------+ + + + + [...] | + +--------+ + + + | DIAGNOSTICS | Routin | 06/26/2006 | | Results for this | | | e | 10:25 PM | | procedure are in the | | | | PDT | | results section. | + +--------+ + + + documented in this encounter Results DIAGNOSTICS (06/26/2006 10:25 PM PDT) + + + + + + | Component | Value | Ref Range | Performed | Pathologist | | | | | At | Signature | + + + + + + | RC | PATIENTS PAIN ASSESSED | | | | | DIAGNOSTICS | AND WAS ZERO ON A SCALE | | | | | | OF ZERO TO 10. | | | | | | ARTERIALBLOOD GAS DRAW | | | | | | SUCCESSFUL. SEE LCR | | | | | | FOR RESULTS. Julian Hassan, | | | | | | REWEAVER | | | | + + + [...] RADHA ALONZO | [address] | [place], [place] | | | DIAGNOSTICS - | [place] | [address] | | | PULMONARY FUNCTION | | | | + + + + + documented in this encounter Visit Diagnoses Not on filedocumented in this encounter"
--- OUTSIDE RECORDS SUMMARY | ~2019-09-28 | XMS | Encounter Summary ---
Demographics + + + | Address | [address] | | | [place] [address] | + + + | Home Phone | | + + + | Preferred Language | Unknown | + + + | Marital Status | | + + + | Christian Affiliation | 1013 | + + + | Race | Unknown | + + + | Ethnic Group | Unknown | + + + Author + + + | Author | [facility] | | | and Priteshana | + + + | Organization | [facility] | | | [...] Team Providers + +------+ + | Care Buyer Grain Name | Role | Phone | + [...] Provider Unknown | | | | | [place], [place] | | | | | | [address] | (Fax) | | | | | [phone] | | | +--------+ + + + [...] [place] | | | | | | [id number] | | | | | | | [...]
--- OUTSIDE RECORDS SUMMARY | ~2019-09-28 | XMS | Encounter Summary ---
Demographics + + + | Address | [address] | | | [place] [address] | + + + | Home Phone [...] Team Providers + +------+ + | Care Junior Assistant Manager Name | Role | Phone | [...] | | | stenosis | B | [address] | | | | | | [place], [place] | Phone: | | | | | | [address] | [phone] | | | | | | Phone: | Fax: | | | | | | [phone] | [phone] | | | | | | Fax: | | | | | | | [phone] | | + +--------+ + + + + Encounter Details +--------+---------+ + + + | Date | Type | Department | Care Team | Description | +--------+---------+ + + + | 07/18/ | Office | [facility] | Denys Sibley, | Lumbar region | | 2018 | Visit | [facility] | DO [address] | somatic dysfunction | | | | [address]OLOGY [address] [place] | (Primary Dx); | | | | [address] | [address] | Intractable back | | | | [place] | | pain; Encounter for | | | | [address] | | long-term use of | | | | [phone] | | opiate analgesic; | | | | | | Degenerative lumbar | | | | | | spinal stenosis; | | | | | | Closed compression | | | | | | fracture of fifth | | | | | | lumbar vertebra, | | | | | | sequela; Chronic | | | | | | pain disorder; | | | | | | Spondylosis of | | | | | | lumbar region | | | | | | without myelopathy | | | | | | or radiculopathy; | | | | | | Facet arthritis of | | | | | | lumbar region; | | | | | | Foraminal stenosis | | | | | | of lumbar region - | | | | | | left L5-S1; | | | | | | Scoliosis of lumbar | | | | | | spine, unspecified | | | | | | scoliosis type; | | | | | | Intervertebral [...] sciatica; | | | | | | Chronic bilateral | | | | | | low back pain with | | | | | | right-sided | | | | | | sciatica; Spinal | | | | | | stenosis of | | | | | | lumbosacral region | +--------+---------+ + + + Social [...] + | Blood Pressure | 102/52 | 07/18/2019 8:54 AM | | | | | PDT | | + + + + + | Pulse | 64 | 07/18/2019 8:54 AM | | | | | PDT | | + + + + + | Temperature | - | - | | + + + + + | Respiratory Rate | 16 | 07/18/2019 8:54 AM | | | | | PDT | | + + + + + | Oxygen Saturation | 100% | 07/18/2019 8:54 AM | | | | | PDT | | + + + + + | Inhaled Oxygen | - | - | | | Concentration | | | | + + + + + | Weight | 50.9 kg (112 lb 3.2 | 07/18/2019 8:54 AM | | | | oz) | PDT | | + + + + + | Height | 154.9 cm (5' 1") | 07/18/2019 8:54 AM | | | | | PDT | | + + + + + | Body Mass Index | 21.2 | 07/18/2019 8:54 AM | | | | | PDT | | + + + + + documented in this encounter Progress Notes Denys Sibley DO - 07/18/2019 8:55 AM PDTFormatting of this note might be [...] onto the skin every 72 hours., Disp: 10 patch, Rfl: 0 HYDROcodone-acetaminophen (NORCO) 10-325 mg per tablet, Take 1 tablet by mouth every 6 hours as needed for Pain for up to 30 days., Disp: 120 tablet, Rfl: 0 ibuprofen (ADVIL,MOTRIN) 600 MG tablet, Take 600 [...] minutes)., Disp: 2 eac h, Rfl: 1 ondansetron (ZOFRAN) 24 MG tablet, Take 24 mg by mouth once., Disp: , Rfl: raNITIdine (ZANTAC) 150 mg tablet, Take 150 mg by mouth 2 (two) times daily., Disp: , Rfl: rOPINIRole (REQUIP) 4 mg tablet, Take 4 mg by mouth 4 times daily., Disp: , Rfl: Current Pain Level 2/10 Worst 7/10 Best 1/10 Past Medical History: Diagnosis Date Acute renal failure ([facility]) April 2013 Anesthesia hallucinated after bladder repair Arthralgia Asthma Asthma Cancer ([facility]) 2004 breast Cerebrovascular accident (CVA) ([facility]) no per pt Chronic back pain Chronic back pain Concussion 07/2015 Preceeded by seizure Constipation COPD (chronic obstructive pulmonary disease) ([facility]) Degenerative disc disease Depression Depression Diabetes mellitus ([facility]) Diabetes mellitus, type 2 ([facility]) diet controlled Diarrhea Disorder of [...] Scoliosis Scoliosis of lumbar spine 04/17/2014 Seizure ([facility]) one due to meds, two due to dehydration at least couple years ago Strain of lumbar region 02/25/2019 Syncope and collapse Tardive dyskinesia Use of cane as ambulatory aid ROS Unchanged from previous visit There were no vitals taken for this visit. HEENT : Unremarkable, PERRLA, EOMI Heart : [...] to physical therapy, mass age therapy, acupuncture, wound care coordinator, along with recommended psychological counseling , either privately, or in group sessions offered by private care individuals, community serv ices, or taoist organizations. Appropriate referrals were made at patient and/or provider request Narcan was prescribed, when appropriate, and patient instructed in its use for emergency on ly. Patient was given instructions on proper storage and disposal of medications including but not limited to current government regulations regarding this and or current official gov ernment approved disposal sites. patient states that she had a successful spinal cord stimulator trial and is scheduled for implantation on 08/03/19.We wish her well with her procedure.And told that she could take on e of her medications offered to her 2 weeks postop and will return to this office in 1 month Continue current medication regime with these changes and/ or additions :refill her fenta nyl patch 25 by grams applied to the anterior chest wall q72 hours, and Norco7.5/325 one po q6 hours prn pain Patient understands and is in full agreement with the above plan, Will return to office in 4 weeks, [facility] was consulted and appears appropriate, Urine Toxicology [...] and complications with the passage of time. watermelon inspector use is also associated with depressions, and [...] [place] | | | | | | [address] | | | | | | | | +--------+---------+ + + + documented as of this encounter Visit Diagnoses + + | Diagnosis | + + | Lumbar region somatic dysfunction - Primary Nonallopathic lesion of lumbar region, | | not elsewhere classified | + + | Intractable back pain Backache, unspecified | + + | Encounter for long-term use of opiate analgesic Encounter for long-term (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 | | of other medications | + + | Degenerative lumbar spinal stenosis Spinal stenosis, lumbar region, without | | neurogenic claudication | + + | Closed compression fracture of fifth lumbar vertebra, sequela | + + | Chronic pain disorder Chronic pain syndrome | + + | Spondylosis of lumbar region without myelopathy or radiculopathy Lumbosacral | | spondylosis without myelopathy | + + | Facet arthritis of lumbar region Lumbosacral spondylosis without myelopathy | + + | 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 Spinal stenosis, lumbar region, | | without neurogenic claudication | + + | Scoliosis of lumbar spine, unspecified scoliosis type | + + | Intervertebral disc disorders with radiculopathy, lumbosacral region | + + | Spondylosis without myelopathy or radiculopathy, cervical region | + + | Spondylosis without myelopathy or radiculopathy, lumbosacral region | + + | Chronic bilateral low back pain without sciatica | + + | Chronic bilateral low back pain with right-sided sciatica | + + | Spinal stenosis of lumbosacral region Spinal stenosis, lumbar region, without | | neurogenic claudication | + + documented in this encounter
--- OUTSIDE RECORDS SUMMARY | ~2019-09-28 | XMS | Encounter Summary ---
Demographics + + + | Address | [address] | | | [place] [address] | + + + | Home Phone [...] Team Providers + +------+ + | Care Rack Production Worker Name | Role | Phone | + +------+ + | Concepción Gallardo NP | PCP | | + +------+ + Reason for Visit + + + | Reason | Comments | + + + | Weakness | | + + + Encounter Details +--------+ + + + + | Date | Type | Department | Care Team | Description | +--------+ + + + + | 08/05/ | Emergency | [facility] | Dion Richardson | Chronic low back | | 2014 | | [facility] | Laz Richards MD | pain (Primary Dx); | | | | CENTER [address] | [address] | Weakness | | | | [place] | [place] | | | | | [address] | [address] | | | | | [phone] | | | +--------+ + + + [...] + + + | Blood Pressure | 133/94 | 08/05/2014 3:59 PM | | | | | PDT | | + + + + + | Pulse | 84 | 08/05/2014 3:45 PM | | | | | PDT | | + + + + + | Temperature | 36.8 C (98.3 F) | 08/05/2014 2:25 PM | | | | | PDT | | + + + + + | Respiratory Rate | 18 | 08/05/2014 3:05 PM | | | | | PDT | | + + + + + | Oxygen Saturation | 99% | 08/05/2014 3:45 PM | | | | | PDT [...] documented in this encounter Discharge Instructions Instructions Dion Richardson MD - 08/05/2014Continue regular medications as re quired at home. Followup in medical clinic. documented in this encounter Medications at Time [...] [place] | | | | | | [address] | | | | | | | | +--------+---------+ + + + documented as of this encounter Procedures + +--------+ + + + | Procedure Name | Priori | Date/Time | Associated Diagnosis | Comments | | | ty | | | | + +--------+ + + + | TROPONIN I | STAT | 08/05/2014 | | Results for this | | | | 2:36 PM | | procedure are in the | | | | PDT | | results section. | + +--------+ + + + | CBC WITH | STAT | 08/05/2014 | | Results for this | | DIFFERENTIAL | | 2:36 PM | | procedure are in the | | | | PDT | | results section. | + +--------+ + + + | LIPASE | STAT | 08/05/2014 | | Results for this | | | | 2:36 PM | | procedure are in the | | | | PDT | | results section. | + +--------+ + + + | COMPREHENSIVE | STAT | 08/05/2014 | | Results for this | | METABOLIC PANEL | | 2:36 PM | | procedure are in the | | | | PDT | | results section. | + +--------+ + + + | POC GLUCOSE | Routin | 08/05/2014 | | Results for this | | | e | 2:23 PM | | procedure are in the | | | | PDT | | results section. | + +--------+ + + + documented in this encounter Results Troponin I (08/05/2014 2:36 PM PDT) + +-------+ + + + | Component | Value | Ref Range | Performed | Pathologist | | | | | At | Signature | + +-------+ + + + | Troponin I | <0.01 | <0.06 ng/mL | [facility] | | | | | [facility] | | | | | [facility] | | | | | | CENTER - | | | | | | LABORATORY | | + +-------+ + + + + + | Specimen | + + | Blood | + + + + + + + | Performing | Address | City/State/Zipcode | Phone Number | | Organization | | | | + + + + + | [facility] | [address] | [place] | [phone] | | [facility] | | [address] | | | - LABORATORY | | | | + + + + + | [facility] | [address] | [place] | | | [facility] | | [address] | | | - LABORATORY | | | | + + + + + Lipase (08/05/2014 2:36 PM PDT) + +-------+ + + + | Component | Value | Ref Range | Performed | Pathologist | | | | | At | Signature | + +-------+ + + + | Lipase | 22 | 0 - 60 U/L | [facility] | | | | | | [facility] | | | | | | [facility] | | | | | | CENTER - | | | | | | LABORATORY | | + +-------+ + + + + + | Specimen | + + | Blood | + + + + + + + | Performing | Address | City/State/Zipcode | Phone Number | | Organization | | | | + + + + + | [facility] | [address] | [place] | [phone] | | [facility] | | [address] | | | - LABORATORY | | | | + + + + + | [facility] | [address] | [place], [place] | | | [facility] | | [address] | | | - LABORATORY | | | | + + + + + Comprehensive Metabolic Panel (08/05/2014 2:36 PM PDT) + + + + + + | Component | Value | Ref Range | Performed | Pathologist | | | | | At | Signature | + + + + + + | Na | 137 | 136 - 149 | [facility] | | | | | mmol/L | [facility] | | | | | | MEDICAL | | | | | | CENTER - | | | | | | LABORATORY | | + + + + + + | K | 3.6 | 3.5 - 5.1 | [facility] | | | | | mmol/L | [facility] | | | | | | MEDICAL | | | | | | CENTER - | | | | | | LABORATORY | | + + + + + + | Cl | 104 | 98 - 109 mmol/L | [facility] | | | | | | [facility] | | | | | | MEDICAL | | | | | | CENTER - | | | | | | LABORATORY | | + + + + + + | CO2 | 26 | 24 - 31 mmol/L | [facility] | | | | [facility] | | | | | | MEDICAL | | | | | | CENTER - | | | | | | LABORATORY | | + + + + + + | Anion Gap | 7 | 3 - 16 mmol/L | [facility] | | | | | | [facility] | | | | | | MEDICAL | | | | | | CENTER - | | | | | | LABORATORY | | + + + + + + | Glucose | 110 (H) | 70 - 109 mg/dL | [facility] | | | | | | [facility] | | | | | | MEDICAL | | | | | | CENTER - | | | | | | LABORATORY | | + + + + + + | BUN | 19 (H) | 7 - 18 mg/dL | [facility] | | | | | | [facility] | | | | | | MEDICAL | | | | | | CENTER - | | | | | | LABORATORY | | + + + + + + | Creatinine | 0.75 | 0.60 - 1.30 | [facility] | | | | | mg/dL | [facility] | | | | | | MEDICAL | | | | | | CENTER - | | | | | | LABORATORY | | + + + + + + | eGFR if not | >60Comment: GLOMERULAR | >=60 | [facility] | | | | FILTRATION | mL/min/1.73m2 | [facility] | | | [place] | RATE,ESTIMATED | | MEDICAL | | | | mL/min/1.20z1Kele than | | CENTER - | | | | 60 Chronic kidney | | LABORATORY | | | | disease,if found over [...] + + + + | Calcium | 9.0 | 8.3 - 10.5 | [facility] | | | | | mg/dL | [facility] | | | | | | MEDICAL | | | | | | CENTER - | | | | | | LABORATORY | | + + + + + + | Albumin | 3.8 | 3.2 - 5.0 g/dL | [facility] | | | | | | [facility] | | | | | | MEDICAL | | | | | | CENTER - | | | | | | LABORATORY | | + + + + + + | Bilirubin | 0.5 | 0.1 - 1.5 mg/dL | [facility] | | | Total | | | [facility] | | | | | | MEDICAL | | | | | | CENTER - | | | | | | LABORATORY | | + + + + + + | Total | 6.4 | 6.0 - 7.8 g/dL | [facility] | | | Protein | | | [facility] | | | | | | MEDICAL | | | | | | CENTER - | | | | | | LABORATORY | | + + + + + + | AST | 19 | 10 - 42 U/L | [facility] | | | | | | [facility] | | | | | | MEDICAL | | | | | | CENTER - | | | | | | LABORATORY | | + + + + + + | ALT | 15 | 6 - 45 U/L | [facility] | | | | | | [facility] | | | | | | MEDICAL | | | | | | CENTER - | | | | | | LABORATORY | | + + + + + + | Alkaline | 68 | 40 - 110 U/L | [facility] | | | Phosphatase | | | [facility] | | | | | | MEDICAL | | | | | | CENTER - | | | | | | LABORATORY | | + + + + + + | Globulin | 2.6 | g/dL | [facility] | | | | | | [facility] | | | | | | MEDICAL | | | | | | CENTER - | | | | | | LABORATORY | | + + + + + + | Albumin/Janey | 1.5 | | [facility] | | | bulin Ratio | | | [facility] | | | | | | MEDICAL | | | | | | CENTER - | | | | | | LABORATORY | | + + + + + + | BUN/Creatin | 25.3 | | [facility] | | | ine Ratio | | | [facility] | | | | | | MEDICAL | | | | | | CENTER - | | | | | | LABORATORY | | + + + + + + + + | Specimen | + + | Blood | + + + + + + + | Performing | Address | City/State/Zipcode | Phone Number | | Organization | | | | + + + + + | [facility] | [address] | [place], [place] | [phone] | | [facility] | | [address] | | | - LABORATORY | | | | + + + + + | [facility] | [address] | [place], [place] | | | [facility] | | [address] | | | - LABORATORY | | | | + + + + + CBC with Differential (08/05/2014 2:36 PM PDT) + + + + + + | Component | Value | Ref Range | Performed | Pathologist | | | | | At | Signature | + + + + + + | WBC | 6.0 | 4.0 - 11.0 K/uL | [facility] | | | | | | [facility] | | | | | | MEDICAL | | | | | | CENTER - | | | | | | LABORATORY | | + + + + + + | RBC | 4.24 | 3.70 - 5.20 | [facility] | | | | | M/uL | [facility] | | | | | | MEDICAL | | | | | | CENTER - | | | | | | LABORATORY | | + + + + + + | Hemoglobin | 12.3 | 11.5 - 16.0 | [facility] | | | | | g/dL | [facility] | | | | | | MEDICAL | | | | | | CENTER - | | | | | | LABORATORY | | + + + + + + | Hematocrit | 36.4 | 34.0 - 47.0 % | [facility] | | | | | | [facility] | | | | | | MEDICAL | | | | | | CENTER - | | | | | | LABORATORY | | + + + + + + | MCV | 85.8 | 83.0 - 101.0 fL | [facility] | | | | | | [facility] | | | | | | MEDICAL | | | | | | CENTER - | | | | | | LABORATORY | | + + + + + + | MCH | 29.0 | 28.0 - 35.0 pg | [facility] | | | | | | [facility] | | | | | | MEDICAL | | | | | | CENTER - | | | | | | LABORATORY | | + + + + + + | MCHC | 33.8 | 32.0 - 36.0 | [facility] | | | | | g/dL | [facility] | | | | | | MEDICAL | | | | | | CENTER - | | | | | | LABORATORY | | + + + + + + | RDW-CV | 13.8 | <15.0 % | [facility] | | | | | | [facility] | | | | | | MEDICAL | | | | | | CENTER - | | | | | | LABORATORY | | + + + + + + | Platelet | 315 | 140 - 440 K/uL | [facility] | | | Count | | | [facility] | | | | | | MEDICAL | | | | | | CENTER - | | | | | | LABORATORY | | + + + + + + | MPV | 7.7 | fL | [facility] | | | | | | [facility] | | | | | | MEDICAL | | | | | | CENTER - | | | | | | LABORATORY | | + + + + + + | % | 41.5 (L) | 45.0 - 82.0 % | [facility] | | | Neutrophils | | | [facility] | | | | | | MEDICAL | | | | | | CENTER - | | | | | | LABORATORY | | + + + + + + | % | 46.9 (H) | 20.0 - 45.0 % | [facility] | | | Lymphocytes | | | [facility] | | | | | | MEDICAL | | | | | | CENTER - | | | | | | LABORATORY | | + + + + + + | % Monocytes | 8.7 | 4.0 - 12.0 % | [facility] | | | | | | [facility] | | | | | | MEDICAL | | | | | | CENTER - | | | | | | LABORATORY | | + + + + + + | % | 2.0 | 0.0 - 5.0 % | [facility] | | | Eosinophils | | | [facility] | | | | | | MEDICAL | | | | | | CENTER - | | | | | | LABORATORY | | + + + + + + | % Basophils | 0.9 | 0.0 - 1.0 % | [facility] | | | | | | [facility] | | | | | | MEDICAL | | | | | | CENTER - | | | | | | LABORATORY | | + + + + + + | Absolute | 2.50 | 1.80 - 8.50 | [facility] | | | Neutrophils | | K/uL | [facility] | | | | | | MEDICAL | | | | | | CENTER - | | | | | | LABORATORY | | + + + + + + | Absolute | 2.80 | 0.60 - 3.20 | [facility] | | | Lymphocytes | | K/uL | [facility] | | | | | | MEDICAL | | | | | | CENTER - | | | | | | LABORATORY | | + + + + + + | Absolute | 0.50 | 0.00 - 1.00 | [facility] | | | Monocytes | | K/uL | [facility] | | | | | | MEDICAL | | | | | | CENTER - | | | | | | LABORATORY | | + + + + + + | Absolute | 0.10 | 0.00 - 0.40 | [facility] | | | Eosinophils | | K/uL | [facility] | | | | | | MEDICAL | | | | | | CENTER - | | | | | | LABORATORY | | + + + + + + | Absolute | 0.10 | 0.00 - 0.10 | [facility] | | | Basophils | | K/uL | [facility] | | | | | | MEDICAL | | | | | | CENTER - | | | | | | LABORATORY | | + + + + + + + + | Specimen | + + | Blood | + + + + + + + | Performing | Address | City/State/Zipcode | Phone Number | | Organization | | | | + + + + + | [facility] | [address] | [place] | [phone] | | [facility] | | [address] | | | - LABORATORY | | | | + + + + + | [facility] | [address] | [place] | | | [facility] | | [address] | | | - LABORATORY | | | | + + + + + POC Glucose (08/05/2014 2:23 PM PDT) + +-------+ + + + | Component | Value | Ref Range | Performed | Pathologist | | | | | At | Signature | + +-------+ + + + | Glucose, | 117 | 79 - 150 mg/dL | [facility] | | | P[facility] | | [facility] | | | | | [facility] | | | | | | CENTER - | | | | | | LABORATORY | | + +-------+ + + + + + | Specimen | + + | Blood | + + + + + + + | Performing | Address | City/State/Zipcode | Phone Number | | Organization | | | | + + + + + | [facility] | [address] | [place], [place] | [phone] | | [facility] | | [address] | | | - LABORATORY | | | | + + + + + | [facility] | [address] | [place], [place] | | | [facility] | | [address] | | | - LABORATORY | | | | + + + + + documented in this encounter Visit Diagnoses + + | Diagnosis | + + | Chronic low back pain - Primary Lumbago | + + | Weakness Other malaise and fatigue | + + documented in this encounter Administered Medications + +--------+ +------+------+------+ | Medication Order | MAR | Action | Dose | Rate | Site | | | Action | Date | | | | + +--------+ +------+------+------+ | HYDROmorphone (PF) (DILAUDID) 1 | Given | 08/05/20 | 1 mg | | | | mg/mL injection 1 mg 1 mg, | | 14 3:24 | | | | | Intravenous, ONCE, 08/05/14 at | | PM PDT | | | | | 1500, For 1 dose | | | | | | + +--------+ +------+------+------+ +---+---+ | | | +---+---+ + +---------+ +---------+-------+---+ | sodium chloride 0.9% bolus 500 | New Bag | 08/05/20 | 500 mLs | 500 | | | mL 500 mL, Intravenous, | | 14 3:28 | | mL/hr | | | Administer over 1 Hours, ONCE, | | PM PDT | | | | | 08/05/14 at 1530, For 1 dose | | | | | | + +---------+ +---------+-------+---+ +---+---+ | | | +---+---+ documented in this encounter"
--- OUTSIDE RECORDS SUMMARY | ~2019-09-28 | XMS | Encounter Summary ---
Demographics + + + | Address | [address] | | | [place] [address] | + + + | Home Phone [...] Team Providers + +------+ + | Care Mental Health Counselor Name | Role | Phone | + [...] + + | 08/16/ | Telephone | [facility] | Shay Dietz | Appointment | | 2012 | | PHYSIATRY [address] | | | | | [place], | [place], [place] | | | | | [place] [address] | [address] | | | | | [phone] | | | +--------+ + + + [...] [place] | | | | | | [address] | | | | | | | | +--------+---------+ + + + documented as of this encounter Visit Diagnoses Not on filedocumented in this encounter"
--- OUTSIDE RECORDS SUMMARY | ~2019-09-28 | XMS | Encounter Summary ---
Demographics + + + | Address | [address] | | | [place] [address] | + + + | Home Phone | | + + + | Preferred Language | Unknown | + + + | Marital Status | Single | + + + | Rastafari Affiliation | NON | + + + | Race | White | + + + | Ethnic Group | Not or | + + + Author + + + | Author | [facility] | + + + | Organization | [facility] | + + + | Address | Unknown | + + + | Phone | Unavailable | + + + Support + + +---------+ + | Name | Relationship | Address | Phone | + + +---------+ + | Royce Menchaca | ECON | Unknown | | + + +---------+ + Care Team Providers + +------+ + | Care Pineapple Plantation Manager Name | Role | Phone | + +------+ + | Miquel Calhoun MD | PCP | | + +------+ + Encounter Details +--------+ + + + + | Date | Type | Department | Care Team | Description | +--------+ + + + + | 11/05/ | [facility]phone | [facility] | Khushbu Cortez, | | | 2013 | | [facility] | [facility] [place], [place] | | | | | [address] | [address] | | | | | [address] | | | | | | Aravind Hannon | | | | | | [place], [place] | | | | | | [address] | | | | | | [phone] | | | +--------+ + + + [...]
--- OUTSIDE RECORDS SUMMARY | ~2019-09-28 | XMS | Encounter Summary ---
Demographics + + + | Address | [address] | | | [place] [address] | + + + | Home Phone [...] Team Providers + +------+ + | Care Blackjack Supervisor Name | Role | Phone | [...] + + | 08/05/ | Emergency | [facility] | Dion Richardson | Chronic low back | | 2014 | | [facility] | Laz Richards MD | pain (Primary Dx); | | | | CENTER [address] | [address] | Weakness | | | | [place] | [place] | | | | | [address] | [address] | | | | | [phone] | | | +--------+ + + + [...] [place] | | | | | | [address] | | | | | | | [...] [address] | [place] | [phone] | | [facility] | | [address] | | | - LABORATORY | | | | + + + + + | [address] | [address] | [place] | | | [facility] | | [address] | | | - LABORATORY | | [...] [facility] | | | | | | [facility] | | | | | | CENTER [...] + | [address] | [address] | [place] | [phone] | | [facility] | | [address] | | | - LABORATORY | | | | + + + + + | [address] | [address] | [place], [place] | | | [facility] | | [address] | | | - LABORATORY | | [...] (H) | 7 - 18 mg/dL | [place] | | | | | | [facility] | | | | | | MEDICAL | | | | | | CENTER - | | | | | | LABORATORY | | + + + + + + | Creatinine | 0.75 | 0.60 - 1.30 | [place] | | | | | mg/dL | [facility] | | | | | | MEDICAL | | | | | | CENTER - | | | | | | LABORATORY | | + + + + + + | eGFR if not | >60Comment: GLOMERULAR | >=60 | [place] | | | | FILTRATION | mL/min/1.73m2 | [facility] | | | BENINESE | RATE,ESTIMATED | | MEDICAL | | | | mL/min/1.23b7Neil than | | CENTER - | | [...] + | [facility] | [address] | [place], [place] | [phone] | | [facility] | | [address] | | | - LABORATORY | | | | + + + + + | [facility] | [address] | [place], [place] | | | [facility] | | [address] | | | - LABORATORY | | [...] | Basophils | | K/uL | [facility] | [...] + | [facility] | [address] | [place] | [phone] | | [facility] | | [address] | | | - LABORATORY | | | | + + + + + | [facility] | [address] | [place] | | | [facility] | | [address] | | | - LABORATORY | | [...] + | [facility] | [address] | [place], [place] | [phone] | | [facility] | | [address] | | | - LABORATORY | | | | + + + + + | [facility] | [address] | [place], [place] | | | [facility] | | [address] | | | - LABORATORY | | [...]
--- OUTSIDE RECORDS SUMMARY | ~2019-09-28 | XMS | Encounter Summary ---
Demographics + + + | Address | [address] | | | [place] [address] | + + + | Home Phone | | + + + | Preferred Language | Unknown | + + + | Marital Status | | + + + | Presybeterian Affiliation | 1013 | + + + | Race | Unknown | + + + | Ethnic Group | Unknown | + + + Author + + + | Author | [facility] | | | and [place]riteshana | + + + | Organization | [facility] | | | [...] Team Providers + +------+ + | Care Pararescue Craftsman Name | Role | Phone | + +------+ + | Wendi Aiken | PCP | | + +------+ + Reason for Visit + + + | Reason | Comments | + + + | Medication Prior | Lidocaine Patch | | Authorization | | + + + Encounter Details +--------+ + + + + | Date | Type | Department | Care Team | Description | +--------+ + + + + | 04/10/ | Telephone | [facility] | Nick Martinez, | Medication Prior | | 2017 | | PHYSIATRY [address] | PA-C [address] | Authorization | | | | [place], | [address] | (Lidocaine Patch ) | | | | [place] [address] | [place] [address] | | | | | [phone] | [phone] | | | | | | | [...] [place] | | | | | | [address] | | | | | | | | +--------+---------+ + + + documented as of this encounter Visit Diagnoses Not on filedocumented in this encounter"
--- OUTSIDE RECORDS SUMMARY | ~2019-09-28 | XMS | Encounter Summary ---
Demographics + + + | Address | [address] | | | [place] [address] | + + + | Home Phone | | + + + | Preferred Language | Unknown | + + + | Marital Status | | + + + | Yarsanism Affiliation | 1013 | + + + [...] Team Providers + +------+ + | Care Lifestyle Coordinator Name | Role | Phone | + +------+ + | Concepción Gallardo NP | PCP | | + +------+ + Encounter Details +--------+ + + + + | Date | Type | Department | Care Team | Description | +--------+ + + + + | 11/26/ | Hospital [facility] | Conversion | Peripheral vertigo, | | 2016 | Encounter | [facility] [address] | Transaction, | unspecified | | | | [address] | Provider Unknown | laterality; | | | | [place], [place] | | Post-concussion | | | | [address] | (Fax) | vertigo | | | | [phone] | | | +--------+ + + + [...] Note by Rosy Bautista RN at 11/26/15 0120 Author: Rosy Bautista RN Service: (none) Author Type: Registered Nurse Filed: 11/26/15 2617 Date of Service: 11/26/15 5574 Status: Signed Senior Technical Specialist: Rosy Bautista RN (Registered Nurse) Responded to [...] the er befor e returning home to [place]. Pt reluctant but willing to go to [...] [place] | | | | | | [address] | | | | | | | [...] | | | Fingerstick | performed at [facility];[address] | | LAB | | | | [address];[place], [place] | | | | | | [address] | | | | + + + [...]
--- OUTSIDE RECORDS SUMMARY | ~2019-09-28 | XMS | Encounter Summary ---
Demographics + + + | Address | [address] | | | [place] [address] | + + + | Home Phone [...] + + | Author | [facility] | | | and Priteshana | + + + | Organization | [facility] | | | [...] Team Providers + +------+ + | Care Mixer Blender Name | Role | Phone | + +------+ + | Concepción Gallardo NP | PCP | | + +------+ + Reason for Visit + + + | Reason | Comments | + + + | Hip Pain | Right hip and leg pain | + + + Encounter Details +--------+ + + + + | Date | Type | Department | Care Team | Description | +--------+ + + + + | 04/28/ | Emergency | [facility] | Jean-Paul Flowers, | Chronic hip pain, | | 2014 | | [facility] | MD [address] | right (Primary Dx); | | | | CENTER [address] | [place] | Chronic low back | | | | [place] | [address] | pain; Frequent falls | | | | [id number] | | | | | | [phone] | | | +--------+ + + + [...] + + + | Blood Pressure | 123/68 | 04/28/2015 8:27 AM | | | | | PDT | | + + + + + | Pulse | 76 | 04/28/2015 8:27 AM | | | | | PDT | | + + + + + | Temperature | 35.9 C (96.6 F) | 04/28/2015 8:27 AM | | | | | PDT | | + + + + + | Respiratory Rate | 18 | 04/28/2015 8:27 AM | | | | | PDT | | + + + + + | Oxygen Saturation | 100% | 04/28/2015 8:27 AM | | | | | PDT | | + + + + + | Inhaled Oxygen | - | - | | | Concentration | | | | + + + + + | Weight | 53.1 kg (117 lb) | 04/28/2015 8:27 AM | | | | | PDT | | + + + + + | Height | 154.9 cm (5' 0.98") | 04/28/2015 8:27 AM | | | | | PDT | | + + + + + | Body Mass Index | 22.12 | 04/28/2015 8:27 AM | | | | | PDT | | + + + + + documented in this encounter Discharge Instructions Jean-Paul Nugent MD - 04/28/2015Follow-up with Isaura from [facility] social work for assistance with home health, occupational therapy, and physical therapy. Return if new concerning symptoms develop. Take home medications for pain. documented in this encounter Medications at Time [...] [place] | | | | | | [id number] | | | | | | | | +--------+---------+ + + + documented as of this encounter Procedures + +--------+ + + + | Procedure Name | Priori | Date/Time | Associated Diagnosis | Comments | | | ty | | | | + +--------+ + + + | XR LUMBAR SPINE 2 OR | STAT | 04/28/2015 | | Results for this | | 3 VW | | 10:18 AM | | procedure are in the | | | | PDT | | results section. | + +--------+ + + + | XR HIP RIGHT 2 + VW | STAT | 04/28/2015 | | Results for this | | | | 9:21 AM | | procedure are in the | | | | PDT | | results section. | + +--------+ + + + | ED INFORMATION | Routin | 04/28/2015 | | Results for this | | EXCHANGE | e | 8:21 AM | | procedure are in the | | | | PDT | | results section. | + +--------+ + + + documented in this encounter Results XR Lumbar Spine 2 or 3 Vw (04/28/2015 10:18 AM PDT) + + | Specimen | + + | | + + + + + | Narrative | Performed At | + + + | XR LUMBAR SPINE 2 OR 3 VW. 04/28/2015 10:18 AM HISTORY: HIP | [facility] | | PAIN . COMPARISON: Lumbar spine x-ray 08/02/2014 FINDINGS: | | | Levoconvex curvature of the lumbar spine centered at L2 is again seen. | | | Vertebral body alignment is otherwise maintained. There is | | | diffuse degenerative disc disease, with decreased disc height at the | | | level of L3-4 and L4-5 on the right. Vertebral body heights are | | | maintained. Facet degenerative hypertrophy, greater in the lower | | | lumbar spine. Surgical clips seen in the right upper quadrant, | | | suggestive of prior cholecystectomy. IMPRESSION - Degenerative | | | disc disease and spondylotic change, with levoconvex curvature | | | centered at L2, without spondylolisthesis. Dictated and Signed by: | | | Dhruv Bender MD Electronically signed: 04/28/2015 11:31 AM | | + + + + + | Procedure Note | + + | Reji Pacheco Results In - 04/28/2015 11:34 AM PDT XR LUMBAR SPINE 2 OR 3 VW. 04/28/2015 | | 10:18 AMHISTORY: HIP PAIN . COMPARISON: Lumbar spine x-ray 08/02/2014FINDINGS:Levoconvex | | curvature of the lumbar spine centered at L2 is again seen. Vertebral body alignment is | | otherwise maintained. There is diffuse degenerativedisc disease, with decreased disc | | height at the level of L3-4 and L4-5 on theright. Vertebral body heights are | | maintained. Facet degenerative hypertrophy,greater in the lower lumbar spine. Surgical | | clips seen in the right upperquadrant, suggestive of prior cholecystectomy.IMPRESSION | | -Degenerative disc disease and spondylotic change, with levoconvex curvaturecentered at | | L2, without spondylolisthesis.Dictated and Signed by: Dhruv Bender MD | | Electronically signed: 04/28/2015 11:31 AM | |right. Vertebral body heights are maintained. Facet degenerative hypertrophy, | |greater in the lower lumbar spine. Surgical clips seen in the right upper | |quadrant, suggestive of prior cholecystectomy. | | | | | |IMPRESSION - | |Degenerative disc disease and spondylotic change, with levoconvex curvature | |centered at L2, without spondylolisthesis. | | | |Dictated and Signed by: Dhruv Bender MD | | Electronically signed: 04/28/2015 11:31 AM | + + + +---------+ + + | Performing | Address | City/State/Zipcode | Phone Number | | Organization | | | | + +---------+ + + | [facility] | | | | + +---------+ + + XR Hip Right 2 + Vw (04/28/2015 9:21 AM PDT) + + | Specimen | + + | | + + + + + | Narrative | Performed At | + + + | XR HIP RIGHT 2 + VW 04/28/2015 9:21 AM HISTORY: HIP PAIN. | [facility] | | COMPARISON: None. FINDINGS: There are no acute osseous findings. | | | Mild degenerative changes are present with osteophytosis and | | | subchondral sclerosis. Bone mineralization is normal. Visualized | | | pelvic osseous structures show no acute findings. There is left | | | curvature of the lumbar spine along with spondylosis. Soft tissue | | | structures are unremarkable. IMPRESSION - No acute findings. If | | | symptoms persist or worsen, MRI can be considered for further | | | evaluation. Dictated and Signed by: Carlos Rodriguez MD | | | Electronically signed: 04/28/2015 9:37 AM | | + + + + + | Procedure Note | + + | Junior, Rad Results In - 04/28/2015 9:40 AM PDT XR HIP RIGHT 2 + VW 04/28/2015 9:21 AM | | | | HISTORY: HIP PAIN. | | | | COMPARISON: None. | | | | FINDINGS: | | There are no acute osseous findings. Mild degenerative changes are present with | | osteophytosis and subchondral sclerosis. Bone mineralization is normal. | | Visualized pelvic osseous structures show no acute findings. There is left | | curvature of the lumbar spine along with spondylosis. Soft tissue structures are | | unremarkable. | | | | IMPRESSION - | | No acute findings. If symptoms persist or worsen, MRI can be considered for | | further evaluation. | | | | Dictated and Signed by: Carlos Rodriguez MD | | Electronically signed: 04/28/2015 9:37 AM | + + + +---------+ + + | Performing | Address | City/State/Zipcode | Phone Number | | Organization | | | | + +---------+ + + | [facility] | | | | + +---------+ + + ED INFORMATION EXCHANGE (04/28/2015 8:21 AM PDT) + + | Specimen | + + | | + + + + + | Narrative | Performed At | + + + | INPATIENT VISIT TRACKING (1 MO.) Visit Date | [place] | | LocationTypeDiagnoses | | | VISIT TRACKING (3 MO.) Visit Date | | | Location Type | | | Diagnoses -------- | | | ---- | | | 04/28/2015 08:18 [facility] | | | Emergency -Right Hip to Toe 04/23/2015 10:50 [facility]. | | | [facility] 04/13/2015 | | | 07:46 [facility] | | | -Other chronic pain | | | | | | -Accidents occurring in unspecified place | | | | | | -Poisoning by unspecified drug or medicinal substance | | | | | | -Other malaise and fatigue | | | | | | -Poisoning by unspecified drug or | | | medicinal substance | | | -Long-term | | | (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 of other medications | | | | | | -Diabetes mellitus without mention of complication, type II or | | | | | | unspecified type, not stated | | | as uncontrolled | | | -Diabetes | | | mellitus without mention of complication, type II or | | | | | | unspecified type, not stated as uncontrolled | | | | | | -Poisoning by unspecified drug | | | or medicinal substance | | | -Other | | | malaise and fatigue | | | -Accidents | | | occurring in unspecified place | | | | | | -Accidents occurring in unspecified place | | | | | | -Long-term (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 of other medications | | | | | | -Diabetes mellitus without mention of | | | complication, type II or | | | | | | unspecified type, not stated as uncontrolled | | | | | | -Suicide and self-inflicted poisoning by unspecified | | | drug or | | | medicinal substance | | | | | | -Other malaise and fatigue | | | | | | -Other acquired absence of organ | | | | | | -Long-term (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 of | | | other medications | | | -Other | | | acquired absence of organ | | | | | | -Other chronic pain | | | -Accidents | | | occurring in unspecified place | | | | | | -Accidents occurring in unspecified place | | | | | | -Other acquired absence of organ | | | | | | -Other acquired absence of organ | | | | | | -Diabetes mellitus without mention of | | | complication, type II or | | | | | | unspecified type, not stated as uncontrolled | | | | | | -Other chronic pain | | | | | | -Depressive disorder, not elsewhere classified | | | | | | -Acquired absence of both cervix and uterus | | | | | | -Acquired absence of both | | | cervix and uterus | | | -Suicide and | | | self-inflicted poisoning by unspecified drug or | | | | | | medicinal substance | | | | | | -Long-term (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 of other medications | | | | | | -Other chronic pain | | | | | | -Poisoning by unspecified drug or medicinal | | | substance | | | -Suicide and | | | self-inflicted poisoning by unspecified drug or | | | | | | medicinal substance | | | | | | -Suicide and self-inflicted poisoning by unspecified drug | | | or | | | medicinal substance | | | | | | -Acquired absence of both cervix | | | and uterus | | | -Acquired absence | | | of both cervix and uterus | | | | | | -Suicide and self-inflicted poisoning by unspecified drug or | | | | | | medicinal substance | | | | | | -Other malaise and fatigue | | | | | | -Long-term (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 of other medications | | | | | | -Other acquired absence of | | | organ | | | -Poisoning by | | | unspecified drug or medicinal substance | | | | | | -Other chronic pain | | | | | | -Other malaise and fatigue | | | | | | -Acquired absence of both cervix and uterus | | | | | | -Diabetes mellitus without mention of complication, | | | type II or | | | unspecified type, | | | not stated as uncontrolled [facility] -Surgical or other | | | procedure not carried out because of patient's | | | | | | decision | | | | | | -Dehydration | | | -Dehydration | | | | | | -Surgical or other procedure | | | not carried out because of patient's | | | | | | decision | | | -Dehydration | | | | | | -Surgical or other procedure | | | not carried out because of patient's | | | | | | decision | | | -Surgical or | | | other procedure not carried out because of patient's | | | | | | decision | | | | | | -Dehydration 04/09/2015 10:50 [facility] | | | Urgent Care -History of fall | | | | | | -Diabetes mellitus without mention of | | | complication, type II or | | | | | | unspecified type, not stated as uncontrolled | | | | | | -Dysthymic disorder | | | | | | -History of fall | | | | | | -Dysthymic disorder | | | -Diabetes | | | mellitus without mention of complication, type II or | | | | | | unspecified type, not stated as uncontrolled | | | | | | -History of fall | | | | | | -Unspecified acquired hypothyroidism | | | | | | -Dysthymic disorder | | | | | | -History of fall | | | | | | -Dysthymic disorder | | | | | | -Unspecified acquired hypothyroidism | | | | | | -Diabetes mellitus without mention of complication, | | | type II or | | | unspecified type, | | | not stated as uncontrolled | | | | | | -Unspecified acquired hypothyroidism | | | | | | -Unspecified acquired hypothyroidism | | | | | | -History of fall | | | | | | -Diabetes mellitus without mention of complication, type II or | | | | | | unspecified type, not stated | | | as uncontrolled | | | -Unspecified | | | acquired hypothyroidism | | | | | | -Dysthymic disorder | | | -Diabetes | | | mellitus without mention of complication, type II or | | | | | | unspecified type, not stated as uncontrolled | | | 04/07/2015 07:45 [facility] | | | Urgent Care -Unspecified acquired hypothyroidism | | | | | | -Loss of weight | | | | | | -Oral aphthae | | | | | | -Oral aphthae | | | -Unspecified | | | acquired hypothyroidism | | | -Oral | | | aphthae | | | -Loss of weight | | | | | | -Blood in stool | | | | | | -Unspecified acquired hypothyroidism | | | | | | -Loss of weight | | | | | | -Loss of weight | | | | | | -Loss of weight | | | | | | -Unspecified acquired hypothyroidism | | | | | | -Unspecified acquired hypothyroidism | | | | | | -Loss of weight | | | | | | -Blood in stool | | | -Blood | | | in stool | | | -Blood in stool | | | | | | -Unspecified acquired | | | hypothyroidism | | | -Blood in stool | | | | | | -Unspecified acquired | | | hypothyroidism | | | -Oral aphthae | | | | | | -Oral aphthae | | | | | | -Oral aphthae | | | | | | -Oral aphthae | | | -Loss | | | of weight | | | -Blood in stool | | | | | | -Blood in stool 03/26/2015 | | | 07:15 [facility] | | | -Diabetes mellitus without mention of complication, type II or | | | | | | unspecified type, not stated as | | | uncontrolled | | | -Diabetes | | | mellitus without mention of complication, type II or | | | | | | unspecified type, not stated as uncontrolled | | | | | | -Long-term (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 of | | | other medications | | | | | | -Post-traumatic headache, unspecified | | | | | | -Head injury, unspecified | | | | | | -Osteoarthrosis, unspecified whether generalized or localized, | | | | | | site unspecified | | | | | | -Fall resulting in striking against other | | | object | | | -Diabetes mellitus | | | without mention of complication, type II or | | | | | | unspecified type, not stated as uncontrolled | | | | | | -Home accidents | | | | | | -Other acquired absence of organ | | | | | | -Other acquired absence of organ | | | | | | -Long-term (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 of other medications | | | | | | -Other postprocedural status | | | | | | -Long-term (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 of | | | other medications | | | -Fall | | | resulting in striking against other object | | | | | | -Post-traumatic headache, unspecified | | | | | | -Long-term (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 of other medications | | | | | | -Other chronic pain | | | | | | -Fall resulting in striking against | | | other object | | | -Osteoarthrosis, | | | unspecified whether generalized or localized, | | | | | | site unspecified | | | | | | -Long-term (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 of other medications | | | | | | -Post-traumatic headache, unspecified | | | | | | -Head injury, unspecified | | | | | | -Osteoarthrosis, unspecified whether | | | generalized or localized, | | | | | | site unspecified | | | -Other | | | acquired absence of organ | | | | | | -Other postprocedural status | | | | | | -Diabetes mellitus without mention of complication, type II or | | | | | | unspecified type, not stated as | | | uncontrolled | | | -Home accidents | | | | | | -Other postprocedural status | | | | | | -Other postprocedural status | | | | | | -Fall resulting in striking | | | against other object | | | | | | -Osteoarthrosis, unspecified whether generalized or localized, | | | | | | site unspecified | | | | | | -Other acquired absence of organ | | | | | | -Other chronic pain | | | | | | -Long-term (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 of other medications | | | | | | -Other chronic pain | | | | | | -Head injury, unspecified | | | | | | -Post-traumatic headache, unspecified | | | | | | -Fall resulting in striking against | | | other object | | | -Osteoarthrosis, | | | unspecified whether generalized or localized, | | | | | | site unspecified | | | | | | -Long-term (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 of other medications | | | | | | -Post-traumatic headache, unspecified | | | | | | -Head injury, unspecified | | | | | | -Long-term (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 of other | | | medications | | | -Chronic airway | | | obstruction, not elsewhere classified | | | | | | -Other chronic pain | | | | | | -Home accidents | | | | | | -Post-traumatic headache, unspecified | | | | | | -Diabetes mellitus without mention of complication, type II | | | or | | | unspecified type, not | | | stated as uncontrolled | | | -Other | | | chronic pain | | | -Other chronic | | | pain | | | -Other acquired absence | | | of organ | | | -Diabetes mellitus | | | without mention of complication, type II or | | | | | | unspecified type, not stated as uncontrolled | | | | | | -Osteoarthrosis, unspecified whether | | | generalized or localized, | | | | | | site unspecified | | | -Head injury, | | | unspecified | | | -Home accidents | | | | | | -Home accidents | | | | | | -Head injury, unspecified | | | | | | -Other chronic pain | | | | | | -Other chronic pain | | | | | | -Fall resulting in striking against other object | | | | | | -Head injury, unspecified | | | | | | -Post-traumatic headache, unspecified | | | | | | -Diabetes mellitus without mention of | | | complication, type II or | | | | | | unspecified type, not stated as uncontrolled | | | | | | -Osteoarthrosis, unspecified whether generalized or | | | localized, | | | site unspecified | | | | | | -Other postprocedural status | | | | | | -Other postprocedural status | | | | | | -Other chronic pain | | | | | | -Other acquired absence of organ | | | | | | -Head injury, unspecified | | | | | | -Osteoarthrosis, unspecified whether | | | generalized or localized, | | | | | | site unspecified | | | -Diabetes | | | mellitus without mention of complication, type II or | | | | | | unspecified type, not stated as uncontrolled | | | | | | -Other acquired absence of | | | organ | | | -Long-term (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 | | | of other medications | | | | | | -Osteoarthrosis, unspecified whether generalized or localized, | | | | | | site unspecified | | | | | | -Head injury, unspecified | | | | | | -Other chronic pain | | | | | | -Home accidents | | | | | | -Home accidents | | | -Other | | | acquired absence of organ | | | | | | -Long-term (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 of other medications | | | | | | -Diabetes mellitus without mention of complication, | | | type II or | | | unspecified type, | | | not stated as uncontrolled | | | | | | -Home accidents | | | -Fall | | | resulting in striking against other object | | | | | | -Post-traumatic headache, unspecified | | | | | | -Diabetes mellitus without mention of | | | complication, type II or | | | | | | unspecified type, not stated as uncontrolled | | | | | | -Osteoarthrosis, unspecified whether generalized or | | | localized, | | | site unspecified | | | | | | -Fall resulting in striking | | | against other object | | | -Head | | | injury, unspecified | | | -Other | | | acquired absence of organ | | | | | | -Diabetes mellitus without mention of complication, type II or | | | | | | unspecified type, not stated as | | | uncontrolled | | | -Osteoarthrosis, | | | unspecified whether generalized or localized, | | | | | | site unspecified | | | | | | -Other postprocedural status | | | | | | -Other chronic pain | | | | | | -Other chronic pain | | | | | | -Post-traumatic headache, unspecified | | | | | | -Other postprocedural status | | | | | | -Other postprocedural status | | | | | | -Head injury, unspecified | | | | | | -Fall resulting in striking against other object | | | | | | -Long-term (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 of other | | | medications | | | -Fall resulting in | | | striking against other object | | | | | | -Other acquired absence of organ | | | | | | -Head injury, unspecified | | | | | | -Home accidents | | | -Fall | | | resulting in striking against other object | | | | | | -Fall resulting in striking against other object | | | | | | -Osteoarthrosis, unspecified | | | whether generalized or localized, | | | | | | site unspecified | | | | | | -Osteoarthrosis, unspecified whether generalized or localized, | | | | | | site unspecified | | | | | | -Other postprocedural status | | | | | | -Other postprocedural status | | | | | | -Diabetes mellitus without mention of | | | complication, type II or | | | | | | unspecified type, not stated as uncontrolled | | | | | | -Home accidents | | | | | | -Fall resulting in striking against other object | | | | | | -Home accidents | | | | | | -Other acquired absence of organ | | | | | | -Fall resulting in striking against other object | | | | | | -Other postprocedural status | | | | | | -Head injury, unspecified | | | | | | -Post-traumatic headache, unspecified | | | | | | -Home accidents | | | | | | -Long-term (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 of other | | | medications | | | -Post-traumatic | | | headache, unspecified | | | -Other | | | postprocedural status | | | | | | -Long-term (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 of other medications | | | | | | -Other acquired absence of organ | | | | | | -Other postprocedural status | | | | | | -Head injury, unspecified | | | | | | -Other postprocedural status | | | | | | -Other acquired absence of organ | | | | | | -Other chronic pain | | | | | | -Head injury, unspecified | | | | | | -Diabetes mellitus without mention of complication, type II | | | or | | | unspecified type, not | | | stated as uncontrolled | | | | | | -Diabetes mellitus without mention of complication, type II or | | | | | | unspecified type, not stated as | | | uncontrolled | | | -Post-traumatic | | | headache, unspecified | | | -Other | | | acquired absence of organ | | | | | | -Long-term (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 of other medications | | | | | | -Other postprocedural status | | | | | | -Osteoarthrosis, unspecified whether generalized or | | | localized, | | | site unspecified | | | | | | -Home accidents | | | | | | -Fall resulting in striking against other | | | object | | | -Diabetes mellitus | | | without mention of complication, type II or | | | | | | unspecified type, not stated as uncontrolled | | | | | | -Other chronic pain | | | | | | -Long-term (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 of other medications | | | | | | -Contusion of face, scalp, and | | | neck except eye(s) | | | -Other | | | chronic pain | | | -Post-traumatic | | | headache, unspecified | | | -Home | | | accidents | | | -Post-traumatic | | | headache, unspecified | | | -Home | | | accidents | | | -Home accidents | | | | | | -Other acquired absence of | | | organ | | | -Osteoarthrosis, | | | unspecified whether generalized or localized, | | | | | | site unspecified | | | | | | -Osteoarthrosis, unspecified whether generalized or localized, | | | | | | site unspecified | | | | | | -Post-traumatic headache, unspecified | | | | | | -Diabetes mellitus without mention | | | of complication, type II or | | | | | | unspecified type, not stated as uncontrolled | | | | | | -Head injury, unspecified | | | | | | -Other chronic pain | | | | | | -Post-traumatic headache, unspecified | | | | | | -Other acquired absence of organ | | | | | | -Fall resulting in striking against other object | | | | | | -Long-term (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 of other | | | medications 03/07/2015 10:45 [facility] | | | Urgent Care -Loss of weight | | | | | | -Other chronic pain | | | | | | -Loss of weight | | | -Other | | | chronic pain | | | -Other chronic | | | pain | | | -Other chronic pain | | | | | | -Other chronic pain | | | | | | -Other chronic pain | | | | | | -Other chronic pain | | | | | | -Other chronic pain | | | | | | -Loss of weight | | | -Loss of | | | weight | | | -Loss of weight | | | | | | -Loss of weight | | | | | | -Other chronic pain | | | | | | -Other chronic pain | | | | | | -Loss of weight | | | -Other | | | chronic pain | | | -Loss of weight | | | | | | -Other chronic pain | | | | | | -Other chronic pain | | | | | | -Other chronic pain | | | | | | -Loss of weight | | | | | | -Other chronic pain | | | -Loss of | | | weight | | | -Other chronic pain | | | | | | -Loss of weight | | | | | | -Loss of weight | | | | | | -Loss of weight | | | | | | -Loss of weight | | | -Loss of | | | weight | | | -Loss of weight | | | 02/17/2015 09:15 [facility] | | | Urgent Care -Dysuria | | | | | | -Lump or mass in breast | | | | | | -Dysuria | | | -Dysuria | | | | | | -Dysuria | | | | | | -Dysuria | | | -Lump or | | | mass in breast | | | -Lump or mass | | | in breast | | | -Dysuria | | | | | | -Lump or mass in breast | | | | | | -Dysuria | | | | | | -Lump or mass in breast | | | | | | -Dysuria | | | -Lump or mass in | | | breast | | | -Dysuria | | | | | | -Lump or mass in breast | | | | | | -Dysuria | | | | | | -Dysuria | | | -Lump or mass in | | | breast | | | -Dysuria | | | | | | -Lump or mass in breast | | | | | | -Lump or mass in breast | | | | | | -Lump or mass in breast | | | | | | -Dysuria | | | -Lump or | | | mass in breast | | | -Dysuria | | | | | | -Lump or mass in breast | | | | | | -Dysuria | | | | | | -Dysuria | | | -Lump or | | | mass in breast | | | -Dysuria | | | | | | -Dysuria | | | | | | -Dysuria | | | -Lump | | | or mass in breast | | | -Lump or | | | mass in breast | | | -Lump or mass | | | in breast | | | -Lump or mass in | | | breast | | | -Lump or mass in | | | breast 02/14/2015 09:50 [facility] | | | Urgent Care -Other chronic pain | | | | | | -Long-term (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 of other medications | | | | | | -Other chronic pain | | | | | | -Long-term (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 of other medications | | | | | | -Urinary tract infection, site | | | not specified | | | -Constipation, | | | unspecified | | | -Constipation, | | | unspecified | | | -Long-term | | | (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 of other medications | | | | | | -Constipation, unspecified | | | | | | -Constipation, unspecified | | | | | | -Long-term (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 of other medications | | | | | | -Other chronic pain | | | | | | -Other chronic pain | | | | | | -Other chronic pain | | | | | | -Constipation, unspecified | | | | | | -Long-term (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 of other medications | | | | | | -Other chronic pain | | | | | | -Urinary tract infection, site not specified | | | | | | -Urinary tract infection, site not specified | | | | | | -Constipation, unspecified | | | | | | -Long-term (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 of other | | | medications | | | -Long-term | | | (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 of other medications | | | | | | -Constipation, unspecified | | | | | | -Other chronic pain | | | -Other | | | chronic pain | | | -Long-term | | | (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 of other medications | | | | | | -Urinary tract infection, site not specified | | | | | | -Other chronic pain | | | | | | -Other chronic pain | | | | | | -Urinary tract infection, site not specified | | | | | | -Urinary tract infection, site not specified | | | | | | -Other chronic pain | | | | | | -Urinary tract infection, site not specified | | | | | | -Long-term (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 of | | | other medications | | | -Urinary | | | tract infection, site not specified | | | | | | -Constipation, unspecified | | | | | | -Constipation, unspecified | | | | | | -Long-term (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 of other medications | | | | | | -Constipation, unspecified | | | | | | -Long-term (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 of other medications | | | | | | -Constipation, unspecified | | | | | | -Long-term (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 of other | | | medications | | | -Long-term | | | (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 of other medications | | | | | | -Urinary tract infection, site not specified | | | | | | -Urinary tract infection, site not specified | | | | | | -Other chronic pain | | | | | | -Urinary tract infection, site not | | | specified | | | -Other chronic pain | | | | | | -Long-term (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 of | | | other medications | | | -Other | | | chronic pain | | | -Long-term | | | (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 of other medications | | | | | | -Other chronic pain | | | | | | -Urinary tract infection, site not specified | | | | | | -Urinary tract infection, site not specified | | | | | | -Urinary tract infection, site not | | | specified | | | -Constipation, | | | unspecified | | | -Constipation, | | | unspecified | | | -Other chronic | | | pain | | | -Constipation, | | | unspecified | | | -Constipation, | | | unspecified | | | -Long-term | | | (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 of other medications | | | | | | -Constipation, unspecified | | | | | | -Urinary tract infection, site not specified | | | | | | -Long-term (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 of other medications | | | | | | -Long-term (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 of other | | | medications | | | -Long-term | | | (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 of other medications | | | | | | -Constipation, unspecified | | | | | | -Other chronic pain | | | | | | -Urinary tract infection, site not specified | | | | | | -Urinary tract infection, site not specified | | | | | | -Constipation, unspecified | | | | | | -Constipation, unspecified | | | | | | -Urinary tract infection, site not specified | | | | | | -Other chronic pain | | | | | | -Urinary tract infection, site not | | | specified | | | -Other chronic pain | | | 02/11/2015 09:00 [facility] | | | Urgent Care -Loss of weight | | | | | | -Unspecified disorder of joint, lower leg | | | | | | -Loss of weight | | | | | | -Other specified conditions influencing health status | | | | | | -Unspecified disorder of joint, lower | | | leg | | | -Unspecified disorder of | | | joint, lower leg | | | -Other | | | reasons for seeking consultation | | | | | | -Loss of weight | | | | | | -Unspecified disorder of joint, lower leg | | | | | | -Other reasons for seeking consultation | | | | | | -Loss of weight | | | | | | -Other specified conditions influencing health status | | | | | | -Other specified conditions | | | influencing health status | | | | | | -Other specified conditions influencing health status | | | | | | -Other reasons for seeking consultation | | | | | | -Unspecified disorder of joint, | | | lower leg | | | -Loss of weight | | | | | | -Loss of weight | | | | | | -Other reasons for seeking consultation | | | | | | -Loss of weight | | | | | | -Other reasons for seeking consultation | | | | | | -Other reasons for seeking | | | consultation | | | -Other reasons | | | for seeking consultation | | | | | | -Unspecified disorder of joint, lower leg | | | | | | -Other reasons for seeking consultation | | | | | | -Loss of weight | | | | | | -Unspecified disorder of joint, lower leg | | | | | | -Unspecified disorder of joint, lower leg | | | | | | -Other specified conditions | | | influencing health status | | | | | | -Other specified conditions influencing health status | | | | | | -Unspecified disorder of joint, lower leg | | | | | | -Loss of weight | | | | | | -Other reasons for seeking consultation | | | | | | -Other specified conditions | | | influencing health status | | | | | | -Other specified conditions influencing health status | | | | | | -Loss of weight | | | | | | -Loss of weight | | | | | | -Loss of weight | | | -Loss of | | | weight | | | -Unspecified disorder | | | of joint, lower leg | | | -Other | | | reasons for seeking consultation | | | | | | -Unspecified disorder of joint, lower leg | | | | | | -Other specified conditions influencing health status | | | | | | -Other specified conditions | | | influencing health status | | | | | | -Other reasons for seeking consultation | | | | | | -Loss of weight | | | | | | -Other specified conditions influencing health status | | | | | | -Other reasons for seeking consultation | | | | | | -Other reasons for seeking | | | consultation | | | -Unspecified | | | disorder of joint, lower leg | | | | | | -Unspecified disorder of joint, lower leg | | | | | | -Other reasons for seeking consultation | | | | | | -Loss of weight | | | | | | -Other reasons for seeking consultation | | | | | | -Unspecified disorder of joint, lower leg | | | | | | -Loss of weight | | | | | | -Unspecified disorder of joint, lower leg | | | | | | -Unspecified disorder of joint, | | | lower leg | | | -Other reasons for | | | seeking consultation | | | -Other | | | specified conditions influencing health status | | | | | | -Other specified conditions influencing health | | | status | | | -Loss of weight | | | | | | -Unspecified disorder of joint, | | | lower leg | | | -Other specified | | | conditions influencing health status | | | | | | -Other specified conditions influencing health status | | | | | | -Other reasons for seeking | | | consultation | | | -Loss of weight | | | | | | -Unspecified disorder of | | | joint, lower leg | | | -Other | | | reasons for seeking consultation | | | | | | -Loss of weight | | | -Other | | | specified conditions influencing health status | | | | | | -Unspecified disorder of joint, lower leg | | | | | | -Other specified conditions influencing | | | health status | | | -Other reasons | | | for seeking consultation | | | | | | -Other specified conditions influencing health status | | | | | | -Other specified conditions influencing health | | | status VISIT COUNT (1 YR.) Visits Medicaid [place] D[place] | | | Location ------ --------- 1 0 | | | [facility] 2 | | | 0 [facility] 15 | | | 0 [facility] 18 | | | 0 Total Note: Visits indicate total | | | known visits. Medicaid [place] D[place] are the number of primary diagnoses on | | | the [facility]'s non-emergent dx list. | | | | | | --- [facility] has no Care Guidelines for this patient. [place] | | | Prescription Review PDMP Report No PDMP report found. | | + + + + +---------+ + + | Performing | Address | City/State/Zipcode | Phone Number | | Organization | | | | + +---------+ + + | [place] | | | | + +---------+ + + documented in this encounter Visit Diagnoses + + | Diagnosis | + + | Chronic hip pain, right - Primary | + + | Chronic low back pain Lumbago | + + | Frequent falls Personal history of fall | + + documented in this encounter
--- OUTSIDE RECORDS SUMMARY | ~2019-09-28 | XMS | Encounter Summary ---
Demographics + + + | Address | [address] | | | [place] [address] | + + + | Home Phone | | + + + | Preferred Language | Unknown | + + + | Marital Status | | + + + | Taoism Affiliation | 1013 | + + + | Race | Unknown | + + + | Ethnic Group | Unknown | + + + Author + + + | Author | [facility] | | | and Priteshana | + + + | Organization | [facility] | [...] Team Providers + +------+ + | Care Watch Adjuster Name | Role | Phone | + [...] | | [address] | [place] [address] | | | | | [place] | [phone] | | | | | [address] | | | | | | [phone] | | | +--------+ + + + [...] [place] | | | | | | [address] | | | | | | | | +--------+---------+ + + + documented as of this encounter Visit Diagnoses Not on filedocumented in this encounter"
--- OUTSIDE RECORDS SUMMARY | ~2019-09-28 | XMS | Encounter Summary ---
Demographics + + + | Address | [address] | | | [place] [address] | + + + | Home Phone | | + + + | Preferred Language | Unknown | + + + | Marital Status | | + + + | Episcopal Affiliation | 1013 | + + + | Race | Unknown | + + + | Ethnic Group | Unknown | + + + Author + + + | Author | [facility] | | | and Priteshana | + + + | Organization | [facility] | | | and [place] | + [...] Team Providers + +------+ + | Care Hvac Technician Residential Name | Role | Phone | + [...] | Physical | Diagnoses | Juan, | KIANA | | | Services | Therapy [...] | | | | | [place] | [place] [address] | [address] | | | | | Lumbar | Phone: | Phone: | | | | | radiculopath | [phone] | [phone] | | | | | y | Fax: | Fax: | | | | | Procedures | [phone] | [phone] | | | | | HIM 04/17/18 | | | +--------+ + + + + + Encounter Details +--------+ + + + + | Date | Type | Department | Care Team | Description | +--------+ + + + + | 04/12/ | Orders Only | [facility] | Juan, Nick, | Closed compression | | 2018 | | PHYSIATRY [address] | PA-C [address] | fracture of fifth | | | | [place], | [address] [place] | lumbar vertebra, | | | | [place] [address] | [place] [address] | sequela (Primary | | | | [phone] | [phone] | Dx); Lumbar | | | | [...] [place] | | | | | | [address] | | | | | | | | +--------+---------+ + + + + + +--------+ + + | Name | Type | Priori | Associated Diagnoses | Order Schedule | | | | ty | | | + + +--------+ + + | AMB REFERRAL TO [facility] | Outpatient | Routin | Closed Compression | Ordered: 04/12/2018 | | PHYSICAL THERAPY | Referral | e | Fracture Of Fifth | | | | | | Lumbar Vertebra, | | | | | | [place] Lumbar | | | | | | radiculopathy | | + + +--------+ + + documented as of this encounter Visit Diagnoses + + | Diagnosis | + + | Closed compression fracture of fifth lumbar vertebra, sequela - Primary | + + | Lumbar radiculopathy Thoracic or lumbosacral neuritis or radiculitis, unspecified | + + documented in this encounter"
--- OUTSIDE RECORDS SUMMARY | ~2019-09-28 | XMS | Encounter Summary ---
Demographics + + + | Address | [address] | | | [place] [address] | + + + | Home Phone [...] Team Providers + +------+ + | Care Scale Adjuster Name | Role | Phone | [...] + + | 07/03/ | Telephone | [facility] | Shay Dietz | Other (Called | | 2012 | | PHYSIATRY [address] | [address] | patient to discuss | | | | [place], | [place], [place] | options regarding | | | | [place] [address] | [address] | having another | | | | [phone] | | injection or having | | | | | | a MBB or RFA) | [...] [place] | | | | | | [address] | | | | | | | | +--------+---------+ + + + documented as of this encounter Visit Diagnoses Not on filedocumented in this encounter"
--- OUTSIDE RECORDS SUMMARY | ~2019-09-28 | XMS | Encounter Summary ---
Demographics + + + | Address | [address] | | | [place] [address] | + + + | Home Phone [...] + + | Author | [facility] | | | and Priteshana | + + + | Organization | [facility] | | | [...] Team Providers + +------+ + | Care Oil Refinery Process Technician Name | Role | Phone | [...] + + | 11/01/ | Office | [facility] | Shay Dietz | Back pain (Primary | | 2012 | Visit | [address]YSIATRY [address] | [address] | Dx); BACK PAIN, | | | | [place], | [place], [place] | LUMBAR; | | | | [place] [address] | [address] | OSTEOARTHRITIS, | | | | [phone] | | LUMBOSACRAL SPINE; | | | [...] - 11/01/2012 9:06 AM [facility] [...] our off ice. Please also provide a telephone directory distributor driver to take you home on the [...] [place] | | | | | | [address] | | | | | | | [...]
--- OUTSIDE RECORDS SUMMARY | ~2019-09-28 | XMS | Encounter Summary ---
Demographics + + + | Address | [address] | | | [place] [address] | + + + | Home Phone | | + + + | Preferred Language | Unknown | + + + | Marital Status | Single | + + + | Episcopalian Affiliation | NON | + + + [...] Team Providers + +------+ + | Care Liquid Hydrogen Plant Operator Name | Role | Phone | + +------+ + PCP | Unavailable | + +------+ + Encounter Details +--------+ + + + + | Date | Type | Department | Care Team | Description | +--------+ + + + + | 06/26/ | H&P-Transcr | | Physical, History | Hstry & Physical | | 2006 | ibed | | & | | +--------+ + + + + [...]
--- OUTSIDE RECORDS SUMMARY | ~2019-09-28 | XMS | Encounter Summary ---
Demographics + + + | Address | [address] | | | [place] [address] | + + + | Home Phone [...] Team Providers + +------+ + | Care Hotel Server Name | Role | Phone | + +------+ + | Romy De La Paz MD | PCP | | + +------+ + Encounter Details +--------+ + + + + | Date | Type | Department | Care Team | Description | +--------+ + + + + | 05/04/ | Orders Only | [facility] | Dora Ryan V, | | | 2017 | | CONVERSION [address] | MD [address] | | | | | [address] | [address] [place], [place] | | | | | [place], [place] | [address] | | | | | [address] | | | | | | [phone] | | | +--------+ + + + [...] | | | | | | DRIVE [place], [place] | | | | | | [address] | | | | | | | | +--------+---------+ + + + documented as of this encounter Procedures + +--------+ + + + | Procedure Name | Priori | Date/Time | Associated Diagnosis | Comments | | | ty | | | | + +--------+ + + + | ECHO INTERPRETATION | Routin | 03/03/2018 | | Results for this | | OF OUTSIDE FILMS | e | 11:53 AM | | procedure are in the | | | | PDT | | results section. | + +--------+ + + + documented in this encounter Results ECHO Interpretation of Outside Films (03/03/2018 11:53 AM PDT) + + | Specimen | + + | | + + + + + | Impressions | Performed At | + + + | 1. This was a technically difficult study with suboptimal views. 2. | | | The left ventricle is normal in size, wall thickness and systolic | | | function EF 60-65% . 3. The right ventricle is normal in size and | | | function. 4. No significant valvular pathology. 5. There is no | | | pericardial effusion. | | + + + + + + | Narrative | Performed At | + + + | Patient Name: KORI BUTLER Date of : | | | 1945 Performing Physician: | | | Nena Franco | | | | | | INDICATIONS tia/stroke CONCLUSIONS 1. | | | This was a technically difficult study with suboptimal views. 2. The | | | left ventricle is normal in size, wall thickness and systolic function | | | EF 60-65% . 3. The right ventricle is normal in size and function. | | | 4. No significant valvular pathology. 5. There is no pericardial | | | effusion. FINDINGS -------- ECG rhythm: Sinus rhythm with extra | | | systolic beats. Study: A 2-dimensional transthoracic echocardiogram | | | with m-mode, spectral and color flow Doppler was perfomed. Study: | | | This was a technically difficult study with suboptimal views. Left | | | Ventricle: Overall left ventricular systolic function is normal with, | | | an EF between 55 - 60 %. Left Ventricle: The left ventricle cavity | | | size is normal. Left Ventricle: Left ventricular wall thickness is | | | normal. Left Ventricle: The diastolic filling pattern is normal the | | | age of the patient. Left Ventricle: Poor endocardial border | | | definition prevents accurate regional wall motion abnormality | | | identification. Right Ventricle: The right ventricle is normal in | | | size and function. Left Atrium: The left atrium is normal in size. | | | Right Atrium: The right atrium was not well visualized. Aortic Valve: | | | The aortic valve was not well visualized. Aortic Valve: There is no | | | evidence of aortic regurgitation. Aortic Valve: There is no evidence | | | of aortic stenosis. Aortic Valve: The aortic valve is trileaflet and | | | appears structurally normal. Mitral Valve: No mitral regurgitation. | | | Mitral Valve: Mild mitral annular calcification present. Tricuspid | | | Valve: The tricuspid valve was not well visualized. Tricuspid Valve: | | | No regurgitation noted. Tricuspid Valve: Pulmonary artery systolic | | | pressure could not be assessed due to the absence of adequate TR jet. | | | Pulmonic Valve: The pulmonic valve was not well visualized. Pulmonic | | | Valve: Trace pulmonic regurgitation. Pulmonic Valve: No | | | significant valvular pathology. Pericardium: There is no pericardial | | | effusion. Pericardium: No pleural effusion seen. IVC/Hepatic Veins: | | | The inferior vena cava is normal in size and collapses > 50 % with | | | sniff, indicating normal central venous pressures. Aorta: The aortic | | | root, ascending aorta and aortic arch are normal in size. | | | MEASUREMENTS Ao sinus: 3.02 cm LA Diam: 2.73 cm | | | EDV(Teich): 77.28 ml IVSd: 0.66 cm LVIDd: 4.17 cm LVPWd: | | | 0.73 cm LVOT Area: 3.03 cm2 LVOT Diam: 1.96 cm %FS: | | | 33.05 % EF(Teich): 62.03 % ESV(Teich): 29.33 ml LVIDs: | | | 2.79 cm SV(Teich): 47.94 ml RVIDd: 2.59 cm LAESV(A-L): | | | 41.85 ml LAESV Index (A-L): 26.32 ml/m2 LAAs A2C: 12.87 cm2 | | | LAESV A-L A2C: 32.77 ml LALs A2C: 4.29 cm LAAs A4C: 16.44 | | | cm2 LAESV A-L A4C: 50.32 ml LALs A4C: 4.55 cm AV maxPG: | | | 7.92 mmHg AV meanP.38 mmHg AV Vmax: 1.40 m/s AV Vmean: | | | 0.99 m/s AV VTI: 32.81 cm SHABNAM Vmax: 2.11 cm2 SHABNAM (VTI): | | | 2.40 cm2 AVAI (Vmax): 0.00 cm2/m2 AVAI (VTI): 0.00 cm2/m2 | | | LVOT maxP.84 mmHg LVOT meanP.47 mmHg LVSI Dopp: | | | 49.70 ml/m2 LVSV Dopp: 79.02 ml LVOT Vmax: 0.98 m/s LVOT | | | Vmean: 0.75 m/s LVOT VTI: 26.05 cm MV A Mark: 0.88 m/s MV | | | Dec Clarendon: 3.57 m/s2 MV DecT: 230.60 ms MV E Mark: 0.82 m/s | | | MV E/A Ratio: 0.93 MV PHT: 66.87 ms MVA By PHT: 3.28 cm2 | | | Septal e': 0.05 m/s Septal E/e': 15.05 Lateral e': 0.08 m/s | | | Lateral E/e': 9.70 RAP: 5 mmHg Security Risk Analyst: | | | Authenticated by: Nena Franco Report Date/Time: -- | | | [id number]:11:24 | | + + + + + | Procedure Note | + + | Reji Pacheco - 06/21/2019 4:00 PM PDT Patient Name: CARRIE, | | Priyanka of : 1945 Performing Physician: Nena | | Yobanijie INDICATIONS------ | | -----tia/stroke CONCLUSIONS 1. This was a technically difficult study with | | suboptimal views.2. The left ventricle is normal in size, wall thickness and systolic | | function EF 60-65% .3. The right ventricle is normal in size and function.4. No | | significant valvular pathology.5. There is no pericardial effusion. FINDINGS--------ECG | | rhythm: Sinus rhythm with extra systolic beats.Study: A 2-dimensional transthoracic | | echocardiogram with m-mode, spectral and color flow Doppler was perfomed.Study: This was | | a technically difficult study with suboptimal views.Left Ventricle: Overall left | | ventricular systolic function is normal with, an EF between 55 - 60 %.Left Ventricle: | | The left ventricle cavity size is normal.Left Ventricle: Left ventricular wall thickness | | is normal.Left Ventricle: The diastolic filling pattern is normal the age of the | | patient.Left Ventricle: Poor endocardial border definition prevents accurate regional | | wall motion abnormality identification.Right Ventricle: The right ventricle is normal in | | size and function.Left Atrium: The left atrium is normal in size.Right Atrium: The | | right atrium was not well visualized.Aortic Valve: The aortic valve was not well | | visualized.Aortic Valve: There is no evidence of aortic regurgitation.Aortic Valve: | | There is no evidence of aortic stenosis.Aortic Valve: The aortic valve is trileaflet and | | appears structurally normal.Mitral Valve: No mitral regurgitation.Mitral Valve: Mild | | mitral annular calcification present.Tricuspid Valve: The tricuspid valve was not well | | visualized.Tricuspid Valve: No regurgitation noted.Tricuspid Valve: Pulmonary artery | | systolic pressure could not be assessed due to the absence of adequate TR jet.Pulmonic | | Valve: The pulmonic valve was not well visualized.Pulmonic Valve: Trace pulmonic | | regurgitation.Pulmonic Valve: No significant valvular pathology.Pericardium: There is no | | pericardial effusion.Pericardium: No pleural effusion seen.IVC/Hepatic Veins: The | | inferior vena cava is normal in size and collapses > 50 % with sniff, indicating normal | | central venous pressures.Aorta: The aortic root, ascending aorta and aortic arch are | | normal in size. MEASUREMENTS Ao sinus: 3.02 cmLA Diam: 2.73 | | cmEDV(Teich): 77.28 mlIVSd: 0.66 cmLVIDd: 4.17 cmLVPWd: 0.73 cmLVOT Area: 3.03 | | cf9NHCW Diam: 1.96 cm%FS: 33.05 %EF(Teich): 62.03 %ESV(Teich): 29.33 mlLVIDs: | | 2.79 cmSV(Teich): 47.94 mlRVIDd: 2.59 cmLAESV(A-L): 41.85 mlLAESV Index (A-L): | | 26.32 ml/m2LAAs A2C: 12.87 vs6MGMJK A-L A2C: 32.77 mlLALs A2C: 4.29 cmLAAs A4C: | | 16.44 ws4CNDXW A-L A4C: 50.32 mlLALs A4C: 4.55 cmAV maxP.92 mmHgAV meanPG: | | 4.38 mmHgAV Vmax: 1.40 m/Tisha Vmean: 0.99 m/Tisha VTI: 32.81 cmAVA Vmax: 2.11 | | cm2AVA (VTI): 2.40 ix1DPYD (Vmax): 0.00 cm2/m2AVAI (VTI): 0.00 cm2/m2LVOT maxPG: | | 3.84 mmHgLVOT meanP.47 mmHgLVSI Dopp: 49.70 ml/m2LVSV Dopp: 79.02 mlLVOT | | Vmax: 0.98 m/sLVOT Vmean: 0.75 m/sLVOT VTI: 26.05 cmMV A Mark: 0.88 m/sMV Dec | | Clarendon: 3.57 m/s2MV DecT: 230.60 msMV E Mark: 0.82 m/sMV E/A Ratio: 0.93MV PHT: | | 66.87 msMVA By PHT: 3.28 qf8Siyfdp e': 0.05 m/sSeptal E/e': 15.05Lateral e': | | 0.08 m/sLateral E/e': 9.70RAP: 5 mmHg Security Risk Analyst:Authenticated by: Nena | | AlsjacksonraReport Date/Time: -- 10_[id number]:11:24 IMPRESSION: 1. This was a technically | | difficult study with suboptimal views.2. The left ventricle is normal in size, wall | | thickness and systolic function EF 60-65% .3. The right ventricle is normal in size and | | function.4. No significant valvular pathology.5. There is no pericardial effusion. | |Pericardium: There is no pericardial effusion. | |Pericardium: No pleural effusion seen. | |IVC/Hepatic Veins: The inferior vena cava is normal in size and collapses > 50 % with sniff , indicating normal central venous pressures. | |Aorta: The aortic root, ascending aorta and aortic arch are normal in size. | | | |MEASUREMENTS | | | |Ao sinus: 3.02 cm | |LA Diam: 2.73 cm | |EDV(Teich): 77.28 ml | |IVSd: 0.66 cm | |LVIDd: 4.17 cm | |LVPWd: 0.73 cm | |LVOT Area: 3.03 cm2 | |LVOT Diam: 1.96 cm | |%FS: 33.05 % | |EF(Teich): 62.03 % | |ESV(Teich): 29.33 ml | |LVIDs: 2.79 cm | |SV(Teich): 47.94 ml | |RVIDd: 2.59 cm | |LAESV(A-L): 41.85 ml | |LAESV Index (A-L): 26.32 ml/m2 | |LAAs A2C: 12.87 cm2 | |LAESV A-L A2C: 32.77 ml | |LALs A2C: 4.29 cm | |LAAs A4C: 16.44 cm2 | |LAESV A-L A4C: 50.32 ml | |LALs A4C: 4.55 cm | |AV maxP.92 mmHg | |AV meanP.38 mmHg | |AV Vmax: 1.40 m/s | |AV Vmean: 0.99 m/s | |AV VTI: 32.81 cm | |SHABNAM Vmax: 2.11 cm2 | |SHABNAM (VTI): 2.40 cm2 | |AVAI (Vmax): 0.00 cm2/m2 | |AVAI (VTI): 0.00 cm2/m2 | |LVOT maxP.84 mmHg | |LVOT meanP.47 mmHg | |LVSI Dopp: 49.70 ml/m2 | |LVSV Dopp: 79.02 ml | |LVOT Vmax: 0.98 m/s | |LVOT Vmean: 0.75 m/s | |LVOT VTI: 26.05 cm | |MV A Mark: 0.88 m/s | |MV Dec Clarendon: 3.57 m/s2 | |MV DecT: 230.60 ms | |MV E Mark: 0.82 m/s | |MV E/A Ratio: 0.93 | |MV PHT: 66.87 ms | |MVA By PHT: 3.28 cm2 | |Septal e': 0.05 m/s | |Septal E/e': 15.05 | |Lateral e': 0.08 m/s | |Lateral E/e': 9.70 | |RAP: 5 mmHg | | | |Security Risk Analyst: | |Authenticated by: Nena Franco | |Report Date/Time: -- [id number]:11:24 | | | |IMPRESSION: | |1. This was a technically difficult study with suboptimal views. | |2. The left ventricle is normal in size, wall thickness and systolic function EF 60-65% . | |3. The right ventricle is normal in size and function. | |4. No significant valvular pathology. | |5. There is no pericardial effusion. | + + documented in this encounter Visit Diagnoses Not on filedocumented in this encounter"
--- OUTSIDE RECORDS SUMMARY | ~2019-09-28 | XMS | Encounter Summary ---
Demographics + + + | Address | [address] | | | [place] [address] | + + + | Home Phone | | + + + | Preferred Language | Unknown | + + + | Marital Status | | + + + | Oriental Orthodox Affiliation | 1013 | + + + | Race | Unknown | + + + | Ethnic Group | Unknown | + + + Author + + + | Author | [facility] | | | and Priteshana | + + + | Organization | [facility] | | [...] Team Providers + +------+ + | Care Wildlife Refuge Specialist Name | Role | Phone | [...] [address] | | | | | [place], | [address] [place] | | | | | [place] [address] | [place] [address] | | | | | [phone] | [phone] | | | | | | | [...] [place] | | | | | | [address] | | | | | | | | +--------+---------+ + + + documented as of this encounter Visit Diagnoses Not on filedocumented in this encounter"
--- OUTSIDE RECORDS SUMMARY | ~2019-09-28 | XMS | Encounter Summary ---
Demographics + + + | Address | [address] | | | [place] [address] | + + + | Home Phone [...] Team Providers + +------+ + | Care Assembler Tester Name | Role | Phone | [...] W | [address], [address] | pain log reponse) | | | | [place], | [address] [place] | | | | | [place] [address] | [address] | | | | | [phone] | | | +--------+ + + + [...] [place] | | | | | | [address] | | | | | | | | +--------+---------+ + + + documented as of this encounter Visit Diagnoses Not on filedocumented in this encounter"
--- OUTSIDE RECORDS SUMMARY | ~2019-09-28 | XMS | Encounter Summary ---
Demographics + + + | Address | [address] | | | [place] [address] | + + + | Home Phone | | + + + | Preferred Language | Unknown | + + + | Marital Status | | + + + | Faith Affiliation | 1013 | + + + | Race | Unknown | + + + | Ethnic Group | Unknown | + + + Author + + + | Author | [facility] | | | and Priteshana | + + + | Organization | [facility] | | | [...] Team Providers + +------+ + | Care Torch Shearer Name | Role | Phone | + [...] | | [address] | [place] [address] | | | | | [place] | [phone] | | | | | [address] | | | | | | [phone] | | | +--------+ + + + [...] [place] | | | | | | [address] | | | | | | | | +--------+---------+ + + + documented as of this encounter Visit Diagnoses Not on filedocumented in this encounter"
--- OUTSIDE RECORDS SUMMARY | ~2019-09-28 | XMS | Encounter Summary ---
Demographics + + + | Address | [address] | | | [place] [address] | + + + | Home Phone [...] Providers + +------+ + | Care Medical Office Technology Instructor Name | Role | Phone | + +------+ + | Miquel Calhoun MD | PCP | | + +------+ + Encounter Details +--------+ + + + + | Date | Type | Department | Care Team | Description | +--------+ + + + + | 10/18/ | Hospital | [facility] | Shay Dietz | | | 2012 | Encounter | MED CTR XRAY [address] | [address] | | | | | [place] | [facility] [place], [place] | | | | | [place] [address] | [address] | | | | | [phone] | | | +--------+ + + + [...] [place] | | | | | | [address] | | | | | | | | +--------+---------+ + + + documented as of this encounter Procedures + +--------+ + + + | Procedure Name | Priori | Date/Time | Associated Diagnosis | Comments | | | ty | | | | + +--------+ + + + | FL FACET INJECTION | Routin | 10/18/2013 | | Results for this | | | e | 6:25 PM | | procedure are in the | | | | PST | | results section. | + +--------+ + + + documented in this encounter Results FL Facet Injection (10/18/2013 6:25 PM PST) + + | Specimen | + + | | + + + + + | Narrative | Performed At | + + + | [facility] | [facility] | | Department [address] [facility], [place] | [facility] | | [ rep [address]] [ rep [facility] | | st zip] Signed | - IMAGING | | | | | Patient Name: KORI HARMON | | | Physician: OMID : 1945 Age: 68 Sex: F Unit | | | #: [id number] Exam Date: 10/18/13 Location: | | | IMG.INV Report #: [id number] Page: | | | %(RAD)RES..mtdd.print.filter("pg") of %(RAD) | | | RES..mtdd.print.filter("tpg") | | | | | | Accession Number: [id number] | | | LUMBAR MEDIAL BRANCH BLOCKS, 10/18/2013 CLINICAL HISTORY: | | | ICD-9 CODE 721.3, LUMBAR SPONDYLOSIS. Ms. Sheikh | | | Joanne presents to the fluoroscopy suite for | | | fluoroscopically guided bilateral L3 and bilateral L4 medial branch | | | blocks as part of conservative management for chronic pain with lumbar | | | spondylosis. After informed consent was obtained, the patient lay | | | in the prone position on the fluoroscopy table. The areas were | | | identified under fluoroscopic guidance. The areas were prepped and | | | draped in the usual sterile fashion. A 25-gauge 1.5 inch needle was | | | inserted into each region and approximately 3 mL buffered 1% | | | lidocaine was infused. Then, a 22-gauge spinal needle was advanced | | | to the correct position at each site under fluoroscopic guidance. | | | Confirmation into the proper location was obtained with infusion | | | of a small amount of Isovue contrast at each site. Then, 25 mL 0.5% | | | Bupivacaine was infused at each location. Pre- and post-procedure | | | blood pressure was stable. The patient was given verbal as well as | | | written followup instructions. Prior to the start of the | | | procedure, the following were performed and verified, including | | | correct patient identity, correct site/side marked and visible, | | | agreement of the procedure to be done, correct patient positioning | | | and an accurate procedure consent form. Any safety precautions based | | | on clinical history and/or medication use have been addressed. | | | I personally performed the procedure above. | | | Dictated Date/Time: 10/18/2013 18:25 Transcribed Date/Time: | | | 10/18/2013 19:14 Telecom Billing Analyst: | | | <<Signature on File>> | | | Shay Mukherjee | | | MD J Luis10/22/13 0756 <Electronically signed by Shay Mukherjee | | | J Luis SALGADO> Shay Dietz MD 10/18/13 5108 | | | Telecom Billing Analyst: Yudelka Vmpafohymvwjo26/19/13 5530 | | | PROVIDER,UNKNOWN | | + + + + + + + + | Performing | Address | City/State/Zipcode | Phone Number | | Organization | | | | + + + + + | [facility] | [address] | [place] | [phone] | | [facility] | | [address] | | | - IMAGING | | | | + + + + + documented in this encounter Visit Diagnoses Not on filedocumented in this encounter
--- OUTSIDE RECORDS SUMMARY | ~2019-09-28 | XMS | Encounter Summary ---
Demographics + + + | Address | [address] | | | [place] [address] | + + + | Home Phone | | + + + | Preferred Language | Unknown | + + + | Marital Status | | + + + | Pentecostalism Affiliation | 1013 | + + + [...] Team Providers + +------+ + | Care Rip Machine Operator Name | Role | Phone | + +------+ + | Romy De La Paz MD | PCP | | + +------+ + Encounter Details +--------+ + + + + | Date | Type | Department | Care Team | Description | +--------+ + + + + | 07/18/ | Hospital | [facility] | Maykel Hutchins MD | | | 2019 | Encounter | [facility] | [address] | | | | | [address] | [place], | | | | | [place], [place] | [place] [address] | | | | | [address] | [phone] | | | | | [phone] | | | +--------+ + + + [...] Decreased | | | | | | exterminator helper current | Responsiveness (May | | | [...] [place] | | | | | | [address] | | | | | | | [...]
--- OUTSIDE RECORDS SUMMARY | ~2019-09-28 | XMS | Encounter Summary ---
Demographics + + + | Address | [address] | | | [place] [address] | + + + | Home Phone | | + + + | Preferred Language | Unknown | + + + | Marital Status | | + + + | Mandaen Affiliation | 1013 | + + + [...] Providers + +------+ + | Care Continuous Wave Operator Name | Role | Phone | [...] | | | stenosis | B | [address] | | | | | | [place], [place] | Phone: | | | | | | [address] | [phone] | | | | | | Phone: | Fax: | | | | | | [phone] | [phone] | | | | | | Fax: | | | | | | | [phone] | | + +--------+ + + + + Encounter Details +--------+---------+ + + + | Date | Type | Department | Care Team | Description | +--------+---------+ + + + | 06/18/ | Office | [facility] | Denys Sibley, | SACROILIITIS | | 2018 | Visit | [facility] | DO [address] | (Primary Dx); | | | | [address] | Spondylosis of | | | | [address] | [address] | lumbar region | | | | [place], [place] | | without myelopathy | | | | [address] | | or radiculopathy; | | | | [phone] | | BACK PAIN, LUMBAR; | | [...] | | | | | | pain; nursing home | | | | | | current [...] the other nostri l. Talk to your high school music director regarding the use of this medicine in children. While this drug m ay be prescribed for children as young as newborns for selected conditions, precautions do a pply. What side effects may I notice from receiving this medicine? Side effects that you should report to your doctor or health rn progressive care as soon as p ossible: allergic reactions like skin rash, itching or hives, swelling of the face, lips, or tong ue breathing problems fast, irregular heartbeat high blood pressure pain that was controlled by narcotic pain medicine seizures Side effects that usually do not require medical attention (report to your doctor or health rn progressive care if they continue or are bothersome): anxious [...] phone number of your doctor or health rn progressive care and local hospital ready. You may need to have additional doses of this medicine. Each nasal spray contains a single dose. Some emergencies may require additional doses. After use, bring the treated person to the nearest hospital or call 911. Make sure the [facility] health rn progressive care knows that the person has received an [...] repair Arthralgia Asthma Asthma Cancer ([facility]) 2004 breast Cerebrovascular accident (CVA) ([facility]) no per pt Chronic back pain Chronic back pain Concussion 07/2015 Preceeded by seizure Constipation COPD (chronic obstructive pulmonary disease) ([facility]) Degenerative disc disease Depression Depression Diabetes [...] of lumbar spine 04/17/2014 Seizure ([facility]) one due to meds, two due [...] to physical therapy, mass age therapy, acupuncture, respiratory care instructor, along with recommended psychological counseling , either privately, or in group sessions offered by private care individuals, community serv ices, or jew organizations. Appropriate referrals were made at patient and/or provider request Narcan was prescribed, when appropriate, and patient instructed in its use for emergency on ly. Patient was given instructions on proper storage and disposal of medications including but not limited to current government regulations regarding this and or current official gov [facility] approved disposal sites. Continue current medication regime with these changes and/ or additions :refill her fenta nyl patch 25 by grams applied to the anterior chest wall q72 hours, and Norco7.5/325 one po q6 hours prn pain Patient understands and is in full agreement with the above plan, Will return to office in 4 weeks, [facility] was consulted and appears appropriate, Urine [...] dysfunction are noted in men and women. [facility] men will suffer erectile dysfunction with [...] and complications with the passage of time. 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
--- OUTSIDE RECORDS SUMMARY | ~2019-09-28 | XMS | Encounter Summary ---
Demographics + + + | Address | [address] | | | [place] [address] | + + + | Home Phone [...] Team Providers + +------+ + | Care Seafood Packer Name | Role | Phone | [...] Provider Unknown | | | | | [place], [place] | | | | | | [address] | (Fax) | | | | | [phone] | | | +--------+ + + + [...] [place] | | | | | | [id number] | | | | | | | | +--------+---------+ + + + documented as of this encounter Procedures + +--------+ + + + | Procedure Name | Priori | Date/Time | Associated Diagnosis | Comments | | | ty | | | | + +--------+ + + + | CT LUMBAR SPINE WO | Routin | 05/25/2014 | | Results for this | | CONTRAST | e | 2:55 AM | | procedure are in the | | | | PDT | | results section. | + +--------+ + + + documented in this encounter Results CT Lumbar Spine wo Contrast (05/25/2014 2:55 AM PDT) + + | Specimen | [...]
--- OUTSIDE RECORDS SUMMARY | ~2019-09-28 | XMS | Encounter Summary ---
Demographics + + + | Address | [address] | | | [place] [address] | + + + | Home Phone [...] Author + + + | Author | [facility] | + + + | Organization | [facility] | + + + | Address | Unknown | + + + | Phone | Unavailable | + + + Support + + +---------+ + | Name | Relationship | Address | Phone | + + +---------+ + | Royce Menchaca | ECON | Unknown | | + + +---------+ + Care Team Providers + +------+ + | Care Warper Tender Name | Role | Phone | + +------+ + | Miquel Calhoun MD | PCP | | + +------+ + Encounter Details +--------+ + + + + | Date | Type | Department | Care Team | Description | +--------+ + + + + | 10/18/ | Telephone | [facility] | Khushbu Cortez, | | | 2012 | | [facility] | COATINGS INSPECTOR [place], [place] | | | | | [address] | [address] | | | | | [address] | | | | | | Aravind Hannon | | | | | | [place], [place] | | | | | | [address] | | | | | | [phone] | | | +--------+ + + + [...]
--- OUTSIDE RECORDS SUMMARY | ~2019-09-28 | XMS | Encounter Summary ---
Demographics + + + | Address | [address] | | | [place] [address] | + + + | Home Phone | | + + + | Preferred Language | Unknown | + + + | Marital Status | | + + + | Uatsdin Affiliation | 1013 | + + + | Race | Unknown | + + + | Ethnic Group | Unknown | + + + Author + + + | Author | [facility] | | | and Priteshana | + + + | Organization | [facility] | | | [...] Team Providers + +------+ + | Care Spinning Lathe Operator Hydraulic Name | Role | Phone | + +------+ + PCP | Unavailable | + +------+ + Encounter Details +--------+ + + + + | Date | Type | Department | Care Team | Description | +--------+ + + + + | 09/22/ | Hospital | [facility] | Shay Dietz | | | 2010 | Encounter | MED CTR XRAY [address] | | | | | [place] | [address] [place], [place] | | | | | [place] [address] | [address] | | | | | [phone] | | | +--------+ + + + [...] [place] | | | | | | [address] | | | | | | | [...] Performed At | + + + | [facility] Diagnostic Imaging Department | [facility] | | [address] [facility] | [facility] | | LUMBAR FACET INJECTIONS, | DIAG [...] Transcribed Date/Time: | | | 09/22/2011 18:07 External Grinder: <Electronically Signed | | | by Shay Dietz MD> 09/27/11 1035 | | + + + + + | Procedure Note | + + | Junior, Rad Conversion - 12/07/2013 4:17 PM [facility] | | Diagnostic Imaging Department [address] [place] [address] | | LUMBAR FACET INJECTIONS, 09/22/2011 CLINICAL [...] 17:09 | |Transcribed Date/Time: 09/22/2011 18:07 | |External Grinder: | |<Electronically Signed by Shay Dietz MD> 09/27/11 1035 | + + + +---------+ + + | Performing | Address | City/State/Zipcode | Phone Number | | Organization | | | | + +---------+ + + | [place] | | | | | [place] | | | | + +---------+ + + documented in this encounter Visit Diagnoses Not on filedocumented in this encounter"
--- OUTSIDE RECORDS SUMMARY | ~2019-09-28 | XMS | Encounter Summary ---
Demographics + + + | Address | [address] | | | [place] [address] | + + + | Home Phone [...] Team Providers + +------+ + | Care Compressor Operator Portable Name | Role | Phone | + +------+ + | Romy De La Paz MD | PCP | | + +------+ + Reason for Visit + + + | Reason | Comments | + + + | Paperwork | [facility] | + + + Encounter Details +--------+ + + + + | Date | Type | Department | Care Team | Description | +--------+ + + + + | 07/30/ | Telephone | [facility] | Maykel Hutchins MD | Paperwork (Good | | 2019 | | [facility] | [email or web address] | [facility] | | | | ORTHOPEDIC SPINE | HAYLEY SANCHEZ, | Healthcare Orders) | | | | [email or web address] [place] | [place] [address] | | | | | [place] | [phone] | | | | | [address] | | | | | | [phone] | | | +--------+ + + + [...] [place] | | | | | | [address] | | | | | | | | +--------+---------+ + + + documented as of this encounter Visit Diagnoses Not on filedocumented in this encounter"
--- OUTSIDE RECORDS SUMMARY | ~2019-09-28 | XMS | Encounter Summary ---
Demographics + + + | Address | [address] | | | [place] [address] | + + + | Home Phone [...] Team Providers + +------+ + | Care Marketing Project Manager Name | Role | Phone | + +------+ + | No, Physician | PCP | Unavailable | + +------+ + Encounter Details +--------+ + + + + | Date | Type | Department | Care Team | Description | +--------+ + + + + | 01/08/ | Hospital | [facility] | Shay Dietz | Lumbar radiculopathy | | 2013 | Encounter | MED CTR XRAY [address] | | | | | [place] | [facility] [place] [place] | | | | | [place] [address] | [address] | | | | | [phone] | | | | | | | [place] | | +--------+ + + + + [...] +---------+ + + | Blood Pressure | 134/81 | 01/08/2014 1:41 PM | | | | | PDT | | + +---------+ + + | Pulse | 80 | 01/08/2014 1:41 PM | | | | | PDT [...] [place] | | | | | | [address] | | | | | | | | +--------+---------+ + + + documented as of this encounter Procedures + +--------+ + + + | Procedure Name | Priori | Date/Time | Associated Diagnosis | Comments | | | ty | | | | + +--------+ + + + | FL EPIDURAL STEROID | Routin | 01/08/2014 | Lumbar | Results for this | | INJECTION LUMBAR | e | 1:41 PM | radiculopathy | procedure are in the | | TRANSFORAMINAL | | PDT | | results section. | + +--------+ + + + documented in this encounter Results FL BRITTNEY Lumbar Transforaminal (01/08/2014 1:41 PM PDT) + + | Specimen | + + | | + + + + + | Narrative | Performed At | + + + | 01/08/14 13:40 Transforaminal Epidural Steroid Injection | [facility] | | Diagnosis: Lumbar radiculopathy ICD-9 Code 724.4 Ms. Sheikh | [facility] | | Joanne presents to the fluoroscopy suite for a [facility] | | fluoroscopically-guided left L5-S1 transforaminal epidural [...] + + | [address] | [address] | [place] | [phone] | | [facility] | | [address] | | | - IMAGING | | [...] | | | + +--------+ +-------+------+------+ | betamethasone (CELESTONE | Given | 01/09/20 | 12 mg | | | | SOLUSPAN) injection 12 mg 12 mg | | 14 2:00 | | | | | (2 mL), Other, EVERY 24 HOURS | | PM PDT | | | | | INTERVAL, First dose on Tue | | | | | | | 01/08/14 at 1400, For 2 doses, | | | | | | | Shake well. Not for IV use., | | | | | | | Radiology | | | | | | + +--------+ +-------+------+------+ +---+---+ | | | +---+---+ + +-------+ +-------+---+---+ | iohexol (OMNIPAQUE 350) 350 | Given | 01/09/20 | 2 mLs | | | | mg/mL injection 2 mL 2 mL, | | 14 1:42 | | | | | Other, ONCE PRN, Other, Starting | | PM PDT | | | | | 01/08/14 at 1328, For 1 dose, | | | | | | | Radiology | | | | | | + +-------+ +-------+---+---+ +---+---+ | | | +---+---+ documented in this encounter"
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
--- OUTSIDE RECORDS SUMMARY | ~2019-09-28 | XMS | Encounter Summary ---
Demographics + + + | Address | [address] | | | [place] [address] | + + + | Home Phone | | + + + | Preferred Language | Unknown | + + + | Marital Status | | + + + | Judaism Affiliation | 1013 | + + + | Race | Unknown | + + + | Ethnic Group | Unknown | + + + Author + + + | Author | [facility] | | | and Priteshana | + + + | Organization | [facility] | | [...] Team Providers + +------+ + | Care Casting Room Helper Name | Role | Phone | + [...] Provider Unknown | | | | | [place], [place] | | | | | | [address] | (Fax) | | | | | [phone] | | | +--------+ + + + [...] [place] | | | | | | [id number] | | | | | | | [...]
--- OUTSIDE RECORDS SUMMARY | ~2019-09-28 | XMS | Encounter Summary ---
Demographics + + + | Address | [address] | | | [place] [address] | + + + | Home Phone [...] Providers + +------+ + | Care Rn Vascular Name | Role | Phone | + [...] [address] | | | | | [place], [place] | [place] [address] | | | | | [address] | [phone] | | | | | [phone] | | | +--------+ + + + [...] [place] | | | | | | [address] | | | | | | | | +--------+---------+ + + + documented as of this encounter Visit Diagnoses Not on filedocumented in this encounter"
--- OUTSIDE RECORDS SUMMARY | ~2019-09-28 | XMS | Encounter Summary ---
Demographics + + + | Address | [address] | | | [place] [address] | + + + | Home Phone [...] Team Providers + +------+ + | Care Link Machine Operator Name | Role | Phone | + +------+ + | Wendi Aiken | PCP | | + +------+ + Encounter Details +--------+ + + + + | Date | Type | Department | Care Team | Description | +--------+ + + + + | 04/06/ | Hospital | [facility] | Nick Martinez, | Lumbar radiculopathy | | 2018 | Encounter | MED CTR XRAY [address] | PA-C [address] | | | | | [place] | [address] [place] | | | | | [place] [address] | [place] [address] | | | | | [phone] | [phone] | | | | | | | | | | | | Analyst Competitive Intelligence, [facility] | | +--------+ + + + + [...] by mouth | | 0 | | 08/25/201 | | (TYLENOL) 500 mg | every [...] [place] | | | | | | [address] | | | | | | | [...] 1:20 | | | | | ONCE, [facility] 04/06/18 at 1330, For 1 | | [...] | | | | | Other, ONCE, [facility] 04/06/18 at 1330, | | PM PDT | | | | | For 1 dose | | | | | | + +-------+ +-------+---+---+ +---+---+ | | | +---+---+ + +-------+ +-------+---+---+ | lidocaine (PF) 1% injection 2 | Given | 04/06/20 | 2 mLs | | | | mL 2 mL, Other, ONCE, [facility] 04/06/18 | | 18 1:20 | | [...] | | (Comment | | Intradermal, ONCE, [facility] 04/06/18 at | | PM PDT | | | ) | | 1330, For 1 dose | | | | | | + +-------+ +-------+---+ + +---+---+ | | | +---+---+ documented in this encounter"
--- OUTSIDE RECORDS SUMMARY | ~2019-09-28 | XMS | Encounter Summary ---
Demographics + + + | Address | [address] | | | [place] [address] | + + + | Home Phone [...] Author | [facility] (Historical as of | | | 06-16-19) | + + + | Organization | [facility] (Historical as of | | | 06-16-19) [...] Team Providers + +------+ + | Care Dobby Loom Fixer Name | Role | Phone | + +------+ + | Romy De La Paz MD | PCP | | + +------+ + Encounter Details +--------+ + + + + | Date | Type | Department | Care Team | Description | +--------+ + + + + | 08/03/ | Hospital | [facility] | Maykel Hutchins MD | Postlaminectomy | | 2019 | Encounter | [facility] | [address] | syndrome, thoracic | | | | Operating Room [address] | [place] [address] | region; | | | | [address] | [phone] | Radiculopathy of | | | | [place] [address] | | thoracolumbar | | | | [phone] | | region; | | | | [...]
--- OUTSIDE RECORDS SUMMARY | ~2019-09-28 | XMS | Encounter Summary ---
Demographics + + + | Address | [address] | | | [place] [address] | + + + | Home Phone [...] Team Providers + +------+ + | Care Lean Coach Name | Role | Phone | + +------+ + | No, Physician | PCP | Unavailable | + +------+ + Encounter Details +--------+ + + + + | Date | Type | Department | Care Team | Description | +--------+ + + + + | 01/08/ | Hospital | [facility] | Shay Dietz | Lumbar radiculopathy | | 2013 | Encounter | MED CTR XRAY [address] | [address], [address] | | | | | [place] | [facility] [place] | | | | | [place] [address] | [address] | | | | | [phone] | | | | | | | Senior Research Associate, [place] | | +--------+ + + + [...] [place] | | | | | | [address] | | | | | | | [...] radiculopathy ICD-9 Code 724.4 Ms. Sheikh | [facility] | | Joanne presents to the fluoroscopy suite for a [facility] | | fluoroscopically-guided left L5-S1 transforaminal [...] [address] | [place] | [phone] | | [facility] | | [address] | | | - IMAGING | | [...]
--- OUTSIDE RECORDS SUMMARY | ~2019-09-28 | XMS | Encounter Summary ---
Demographics + + + | Address | [address] | | | [place] [address] | + + + | Home Phone [...] Team Providers + +------+ + | Care Combat Rifle Crewmember Name | Role | Phone | + [...] | | | stenosis | B | [address] | | | | | | [place], [place] | Phone: | | | | | | [address] | [phone] | | | | | | Phone: | Fax: | | | | | | [phone] | [phone] | | | | | | Fax: | | | | | | | [phone] | | + +--------+ + + + + Encounter Details +--------+---------+ + + + | Date | Type | Department | Care Team | Description | +--------+---------+ + + + | 08/16/ Office | [facility] | Denys Sibley, | S/P insertion of | | 2018 | Visit | [facility] | DO [address] | spinal cord | | | | [address] [place] | stimulator (Primary | | | | [address] | [address] | Dx); Spinal stenosis | | | | [place], [place] | | of lumbosacral | | | | [address] | | region; Intractable | | | | [phone] | | back pain; Encounter | | [...] anterior chest wall every 72 hours, and [place] 7.5/325 1 p.o. every 6 hours as [...] Screen 08/03/2019 NEGATIVE Final BB BAND 08/03/2019 [id number] Final BB BAND 08/03/2019 Testing performed at [facility];[address] [place] [address];[place] [address] Final Glucose, POC 08/03/2019 77 65 - [...] Final Antibody Screen 07/18/2019 Testing performed at [facility];[address] [place] [address];[place] [address] Final SOURCE: 07/18/2019 NARES(NOSE) Final Result 07/18/2019 [...] to physical therapy, mass age therapy, acupuncture, healthcare marketer, along with recommended psychological counseling , either privately, or in group sessions offered by private care individuals, community serv ices, or jehovah's witness organizations. Appropriate referrals were made at patient [...] every 72 hours con tinue with the [place] 10/325 1 p.o. every 6 hours as needed breakthrough pain and Robaxin 500 mg every 6 hours as needed muscle spasms Patient understands and is in full agreement with the above plan, Will return to office in 4 weeks, [facility] was consulted and appears appropriate, [...] and complications with the passage of time. long-term use is also associated with depressions, and [...] [place] | | | | | | [address] | | | | | | | [...]
--- OUTSIDE RECORDS SUMMARY | ~2019-09-28 | XMS | Encounter Summary ---
Demographics + + + | Address | [address] | | | [place] [address] | + + + | Home Phone [...] Team Providers + +------+ + | Care Budget And Policy Analyst Name | Role | Phone | + +------+ + PCP | Unavailable | + +------+ + Encounter Details +--------+ + + + + | Date | Type | Department | Care Team | Description | +--------+ + + + + | 08/31/ | Hospital | [facility] | | | | 2010 | Encounter | MED CTR LABORATORY | | | | | | [address] | | | | | | [place] | | | | | | [address] | | | | | | [phone] | | | +--------+ + + + [...] [place] | | | | | | [address] | | | | | | | [...] + | [facility] | [address] | [place] | [phone] | | [facility] | | [address] | | | - LABORATORY | | | | + + + + + | [facility] | [address] | [place] | | | [facility] | | [address] | | | - LABORATORY | | | | + + + + + documented in this encounter Visit Diagnoses Not on filedocumented in this encounter"
--- OUTSIDE RECORDS SUMMARY | ~2019-09-28 | XMS | Encounter Summary ---
Demographics + + + | Address | [address] | | | [place] [address] | + + + | Home Phone [...] Team Providers + +------+ + | Care Cementer Oil Well Name | Role | Phone | + [...] + + | 07/05/ | Telephone | [facility] | Maykel Hutchins MD | Advice Only; Other | | 2019 | | [facility] | [address] | (inform office) | | | | ORTHOPEDIC SPINE | [place] | | | | | [address] [place] | [place] [address] | | | | | [place] | [phone] | | | | | [address] | | | | | | [phone] | | | +--------+ + + + [...] [place] | | | | | | [address] | | | | | | | [...]
--- OUTSIDE RECORDS SUMMARY | ~2019-09-28 | XMS | Encounter Summary ---
Demographics + + + | Address | [address] | | | [place] [address] | + + + | Home Phone [...] Providers + +------+ + | Care Student Advisor Name | Role | Phone | + +------+ + PCP | Unavailable | + +------+ + Encounter Details +--------+ + + + + | Date | Type | Department | Care Team | Description | +--------+ + + + + | 12/08/ | Hospital | [facility] | | | | 1994 - | Encounter | MED CTR GENERIC PSY | | | | | | CONV DEPT [address] | | | | 12/18/ | | [place], | | | | 1992 | | [place] [address] | | | | | | [phone] | | | +--------+ + + + [...] [place] | | | | | | [address] | | | | | | | | +--------+---------+ + + + documented as of this encounter Visit Diagnoses Not on filedocumented in this encounter"
--- OUTSIDE RECORDS SUMMARY | ~2019-09-28 | XMS | Encounter Summary ---
Demographics + + + | Address | [address] | | | [place] [address] | + + + | Home Phone | | + + + | Preferred Language | Unknown | + + + | Marital Status | | + + + | Rastafarian Affiliation | 1013 | + + + | Race | Unknown | + + + | Ethnic Group | Unknown | + + + Author + + + | Author | [facility] | | | and Priteshana | + + + | Organization | [facility] | | [...] Team Providers + +------+ + | Care Work Study Student Name | Role | Phone | + [...] + + | 08/31/ | Telephone | [facility] | Alfredo Casillas DO | Triage | | 2019 | | ORTHO [facility] | [address] | | | | | MEDICINE [place] | [place] [address] | | | | | [address] | [phone] | | | | | [place], [place] | | | | | | [address] | | | | | | [phone] | | | +--------+ + + + [...] [place] | | | | | | [address] | | | | | | | | +--------+---------+ + + + documented as of this encounter Visit Diagnoses Not on filedocumented in this encounter"
--- OUTSIDE RECORDS SUMMARY | ~2019-09-28 | XMS | Encounter Summary ---
Demographics + + + | Address | [address] | | | [place] [address] | + + + | Home Phone | | + + + | Preferred Language | Unknown | + + + | Marital Status | Single | + + + | Faith Affiliation | NON | + + + [...] Team Providers + +------+ + | Care Fisheries Specialist Name | Role | Phone | + +------+ + | Miquel Calhoun MD | PCP | | + +------+ + Encounter Details +--------+ + + + + | Date | Type | Department | Care Team | Description | +--------+ + + + + | 09/17/ | Telephone | [facility] | Khushbu Cortez, | | | 2012 | | [facility] | WILDLIFE REHABILITATOR [place], [place] | | | | | [address] | [address] | | | | | [address] | | | | | | Aravind Hannon | | | | | | [place], [place] | | | | | | [address] | | | | | | [phone] | | | +--------+ + + + [...]
--- OUTSIDE RECORDS SUMMARY | ~2019-09-28 | XMS | Encounter Summary ---
Demographics + + + | Address | [address] | | | [place] [address] | + + + | Home Phone | | + + + | Preferred Language | Unknown | + + + | Marital Status | | + + + | Alevism Affiliation | 1013 | + + + | Race | Unknown | + + + | Ethnic Group | Unknown | + + + Author + + + | Author | [facility] | | | and Priteshana | + + + | Organization | [facility] | | | [...] Providers + +------+ + | Care Electronic Typesetting Machine Operator Name | Role | Phone [...] + + | 08/16/ | Telephone | [facility] | Shay Dietz | Appointment | | 2012 | | PHYSIATRY [address] | [address] | | | | | [place], | [place], [place] | | | | | [place] [address] | [address] | | | | | [phone] | | | +--------+ + + + [...] 2018 | Visit | | DO [address] | | | | | | [place] | | | | | | [address] | | | | | | | | +--------+---------+ + + + documented as of this encounter Visit Diagnoses Not on filedocumented in this encounter"
--- OUTSIDE RECORDS SUMMARY | ~2019-09-28 | XMS | Encounter Summary ---
Demographics + + + | Address | [address] | | | [place] [address] | + + + | Home Phone | | + + + | Preferred Language | Unknown | + + + | Marital Status | | + + + | Anglican Affiliation | 1013 | + + + | Race | Unknown | + + + | Ethnic Group | Unknown | + + + Author + + + | Author | [facility] | | | and Priteshana | + + + | Organization | [facility] | | [...] Team Providers + +------+ + | Care Cattle Shipper Name | Role | Phone | + +------+ + | Wendi Aiken | PCP | | + +------+ + Encounter Details +--------+ + + + + | Date | Type | Department | Care Team | Description | +--------+ + + + + | 05/10/ | Imaging | [facility] | Provider, | | | 2018 | Exam | MED CTR EXTERNAL | [address] | | | | | IMAGING | [address] [place] | | | | | [phone] | [place] [address] | | +--------+ + + + + [...] | | | | | | [address] [facility] | | | | | | [id number] | | | | | | | [...] this | | CONTRAST | e | 11:25 AM | | procedure are in the | | | | PDT | | results section. | + +--------+ + + + documented in this encounter Results MRI Lumbar Spine wo Contrast (05/09/2018 11:25 AM PDT) + + | Specimen | [...]
--- OUTSIDE RECORDS SUMMARY | ~2019-09-28 | XMS | Encounter Summary ---
Demographics + + + | Address | [address] | | | [place] [address] | + + + | Home Phone [...] Team Providers + +------+ + | Care Analysis Intern Name | Role | Phone | [...] | | | | | right-sided | [place], [place] | [place], [place] | | | | | sciatica | [address] | [address] | | | | | Facet | Phone: | Phone: | | | | | arthritis of | [phone] | [phone] | | | | | lumbar | Fax: | Fax: | | | | | region | [phone] | [phone] | | | | | Foraminal | [...] | [place], | | | | | Instrument Technician Helper / | Low back | Ox[place] Sol[place], | [place], | | | | Physical | pain | [employer] SAL[employer] [address] | [place] | | | | Medicine and | Bilateral | [address] | [address] | | | | Rehabilitatio | leg pain | [place], | [place], | | | | n | Bilateral | [place] [address] | [place] [address] | | | | | hip pain | Phone: | Phone: | | | | | low back | [phone] | [phone] | | | | | pain, | Fax: | Fax: | | | | | bilateral | [phone] | [phone] | | | | | leg pain [...] | (Primary Dx); | | | | [place], | [place], | Chronic right-sided | | | | [place] [address] | [place] [address] | low back pain with | | | | [phone] | [phone] | right-sided | | | | | [...] 07/06/2016 9:31 AM PDT1) [place]bar [place] - you need to call us when [...] of the procedure you must provide a retail delivery driver to take you home. For [...] and working more hours due to the [employer] Round up. Her pain back is worse [...] has no apparent deficits with short or rodent exterminator memory. 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 Unfortunately she lola nues to have significant [...] has been ordered to be done at [place] [address]. We will follow up once images are [...] [place] | | | | | | [address] | | | | | | | [...] Spondylosis ICD-10 Code M47.816 Kori Caputo | [facility] | | Joanne presents to the fluoroscopy suite for [facility] | | fluoroscopically-guided bilateral L5-S1 facet [...] + + | Performing | Address | City/State/[facility] [[email or web address] | Phone Number | | Organization | | | | + + + + + | [facility] | [address] | [place] | [phone] | | [facility] | | [address] | | | - IMAGING | | [...]
--- OUTSIDE RECORDS SUMMARY | ~2019-09-28 | XMS | Encounter Summary ---
Demographics + + + | Address | [address] | | | [place] [address] | + + + | Home Phone | | + + + | Preferred Language | Unknown | + + + | Marital Status | Single | + + + | Latter Day Affiliation | NON | + + + [...] Team Providers + +------+ + | Care Aviation Safety Equipment Technician Name | Role | Phone [...] | | | | | [place], | | | | | | [place] [address] | | | +--------+ + + + [...]
--- OUTSIDE RECORDS SUMMARY | ~2019-09-28 | XMS | Encounter Summary ---
Demographics + + + | Address | [address] | | | [place] [address] | + + + | Home Phone [...] Providers + +------+ + | Care Medical Device Sales Consultant Name | Role | Phone | + +------+ + | Concepción Gallardo NP | PCP | | + +------+ + Reason for Visit + + + | Reason | Comments | + + + | Follow-up | Discuss surgery | + + + Encounter Details +--------+---------+ + + + | Date | Type | Department | Care Team | Description | +--------+---------+ + + + | 11/29/ | Office | [facility] | Sj Valdes MD | Scoliosis of lumbar | | 2015 | Visit | NEUROSURGERY [address] | [address] | spine (Primary Dx); | | | | [address] | [place] [address] | Foraminal stenosis | | | | [place], [place] | [phone] | of lumbar region - | | | | [address] | | left L5-S1; DDD | | | | [phone] | | (degenerative disc | | | | | | disease), lumbar; | | | | | | Facet arthritis of | | | | | | lumbar region; Left | | | | | | [...] + + + | Blood Pressure | 135/84 | 11/29/2014 10:23 AM | | | | | PST | | + + + + + | Pulse | 86 | 11/29/2014 10:23 AM | | | | | PST | | + + + + + | Temperature | - | - | | + + + + + | Respiratory Rate | 18 | 11/29/2014 10:23 AM | | | | | PST | | + + + + + | Oxygen Saturation | - | - | | + + + + + | Inhaled Oxygen | - | - | | | Concentration | | | | + + + + + | Weight | 63.5 kg (140 lb) | 11/29/2014 10:23 AM | | | | | PST | | + + + + + | Height | 162.6 cm (5' 4") | 11/29/2014 10:23 AM | | | | | PST | | + + + + + | Body Mass Index | 24.03 | 11/29/2014 10:23 AM | | | | | PST | | + + + + + documented in this encounter Progress Notes Sj Valdes MD - 11/29/2014 11:13 AM PSTFormatting of this note might be different from t manolo phillips. Sj Valdes M.D. [address] [place] [address], [address] [place] [address] FAX: NEUROSURGERY HISTORY AND PHYSICAL EXAMINATION CHIEF COMPLAINT: Chief Complaint Patient presents with Follow-up MRI f/u HISTORY OF PRESENT ILLNESS: The patient is a 69 y.o. female with the complaint of low back and leg pain. Patient was seen previously seen in our office and evaluated by [facility] Previously, she did not want to consider any sort of surgery. She continue to followu p with physiatry. She had an injection recently which did not help her much. She continues to have therapy but it is due to run out and only minimally helping. This patient has had ongoing problems with her low back and left leg for quite some time. Unfortunately it has been getting worse. She complains of pain which starts in her low back and radiates down th e posterior portion of her left leg down into her foot. She notices some numbness and tingl ing in the lateral portion of her left foot. She notices that her leg is weak at times as w ell. The patient has been following with physiatry and has had multiple injections which marcos ve been somewhat helpful for her symptoms. The patient states that most activities make her back and leg pain worse. 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 She has been falling more lately. She also notices weakness of her left arm. The patient notices pain in her left a rm as well some neck discomfort. She does notice some loss of fine motor skills of her hand s as well as she has been dropping [...] sounds like CVAs i n the past. She returns to discuss her options. PAST MEDICAL HISTORY: Past Medical History Diagnosis [...] tenderness. Clear without drainage. Clear without erythema. SPINE: There is no tenderness in the midline of the cervical or thoracic spine. There is n o major palpable deformity of the spine. The lumbar spine shows there is no tenderness in the midline of the L3, L4, L5, S1 levels. To palpation, there is signficant bilaterally myofascial tenderness. EXTREMITIES: No edema. Distal pulses are palpable. NEUROLOGICAL EXAM: MENTAL STATUS: The patient is awake, alert, and oriented. She follows simple and complex commands. She speech is fluent, she comprehends speech well, and she repeats well. She has no apparent deficits with short or chcf memory. MOTOR EXAM: (5 IS NORMAL) * Indicates pain limited MUSCLE/ MOVEMENT: RIGHT LEFT Deltoids 5 4+ Biceps 5 5 Triceps 5 5 Wrist Flexion 5 5 Wrist Extension 5 5 Median Intrinsics 5 4 Ulnar Intrinsics 5 4 Consulting Utility Forester Strength 5 4 Hip Flexion 5 4 [...] instability however no plain x-r ays are noted. She scoliois on CT and x-rays. ASSESSMENT: NEUROSURGICAL DIAGNOSES: Encounter Diagnoses Name Primary? 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 She has other issues going on as well which I can't fully ex plain and while she also has scoliosis, I am positive she could not emotionally or physicall y handle scoliosis surgery for it. She does have the potential to be a candidate for a focused operation at L5-S1 in the form of a TLIF. She would need both neuropsychiatric evaluation and medical clearance for he PCP for her multiple problems. She should return once she has been cleared and completed her neuropsychiatric testing. Electronically signed by: Sj Valdes MD 11/29/2014 11:18 documented in this encou nter Plan of Treatment +--------+---------+ + + + | Date | Type | Specialty | Care Team | Description | +--------+---------+ + + + | 10/15/ | Office | Pain Medicine | Denys Sibley, | | | 2018 | Visit | | DO [address] | | | | | | [address], [place] | | | | | | [address] | | | | | | | | +--------+---------+ + + + documented as of this encounter Visit Diagnoses + + | Diagnosis | + + | Scoliosis of lumbar spine - Primary Scoliosis (and kyphoscoliosis), idiopathic | + + | Foraminal stenosis of [...]
--- OUTSIDE RECORDS SUMMARY | ~2019-09-28 | XMS | Encounter Summary ---
Demographics + + + | Address | [address] | | | [place] [address] | + + + | Home Phone [...] Team Providers + +------+ + | Care Through Operator Name | Role | Phone | + +------+ + PCP | Unavailable | + +------+ + Encounter Details +--------+ + + + + | Date | Type | Department | Care Team | Description | +--------+ + + + + | 10/31/ | Hospital | [facility] | | | | 1999 - | Encounter | MED CTR CANCER | | | | | | [address] | | | | 03/16/ | | [place], [place] | | | | 2000 | | [address] | | | | | | [phone] | | | +--------+ + + + [...] [place] | | | | | | [address] | | | | | | | | +--------+---------+ + + + documented as of this encounter Visit Diagnoses Not on filedocumented in this encounter"
--- OUTSIDE RECORDS SUMMARY | ~2019-09-28 | XMS | Encounter Summary ---
Demographics + + + | Address | [address] | | | [place] [address] | + + + | Home Phone [...] Team Providers + +------+ + | Care Judo Instructor Name | Role | Phone | [...] | | | stenosis | B | [address] | | | | | | [place], [place] | Phone: | | | | | | [address] | [phone] | | | | | | Phone: | Fax: | | | | | | [phone] | [phone] | | | | | | Fax: | | | | | | | [phone] | | + +--------+ + + + + Encounter Details +--------+---------+ + + + | Date | Type | Department | Care Team | Description | +--------+---------+ + + + | 07/18/ | Office | [facility] | Denys Sibley, | Lumbar region | | 2018 | Visit | [facility] | DO [address] | somatic dysfunction | | | | [address]OLOGY [address] [place] | (Primary Dx); | | | | [address] | [address] | Intractable back | | | | [place] | | pain; Encounter for | | | | [address] | | long-term use of | | | | [phone] | | opiate analgesic; | | | [...] Diagnosis Date Acute renal failure ([facility]) April 2013 Anesthesia hallucinated after bladder repair Arthralgia Asthma Asthma Cancer ([facility]) 2004 breast Cerebrovascular accident (CVA) ([facility]) no per pt Chronic back pain Chronic back pain Concussion 07/2015 Preceeded by seizure Constipation COPD (chronic obstructive pulmonary disease) ([facility]) Degenerative disc disease Depression Depression Diabetes mellitus ([facility]) Diabetes mellitus, type 2 ([facility]) diet controlled Diarrhea Disorder of thyroid [...] to physical therapy, mass age therapy, acupuncture, 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 Appropriate referrals were made [...] Will return to office in 4 weeks, [facility] was consulted and appears appropriate, [...] [place] | | | | | | [address] | | | | | | | [...]
--- OUTSIDE RECORDS SUMMARY | ~2019-09-28 | XMS | Encounter Summary ---
Demographics + + + | Address | [address] | | | [place] [address] | + + + | Home Phone [...] + + | Author | [facility] | | | and Priteshana | + + + | Organization | [facility] | | | [...] Team Providers + +------+ + | Care Rectifying Operator Name | Role | Phone | [...] [address] | | | | | [place], | [place], [place] | | | | | [place] [address] | [address] | | | | | [phone] | | | +--------+ + + + [...] [place] | | | | | | [address] | | | | | | | | +--------+---------+ + + + documented as of this encounter Visit Diagnoses Not on filedocumented in this encounter"
--- OUTSIDE RECORDS SUMMARY | ~2019-09-28 | XMS | Encounter Summary ---
Demographics + + + | Address | [address] | | | [place] [address] | + + + | Home Phone [...] Team Providers + +------+ + | Care Biomedical Equipment Tech Name | Role | Phone | + +------+ + | Wendi Aiken | PCP | | + +------+ + Encounter Details +--------+ + + + + | Date | Type | Department | Care Team | Description | +--------+ + + + + | 04/07/ | Imaging | [facility] | Provider, | | | 2018 | Exam | [facility] | MD [address] | | | | | IMAGING | Vasquez VALDEZ | | | | | [phone] | [place] [address] | | +--------+ + + + + [...] | | | | | | [address] [facility] | | | | | | [id number] | | | | | | | [...]
--- OUTSIDE RECORDS SUMMARY | ~2019-09-28 | XMS | Encounter Summary ---
Demographics + + + | Address | [address] | | | [place] [address] | + + + | Home Phone [...] Team Providers + +------+ + | Care Scheduler Name | Role | Phone | + [...] + + | 09/04/ | Telephone | [facility] | Shay Dietz | Appointment | | 2012 | | PHYSIATRY [address] | [address] | | | | | [place], | [place], [place] | | | | | [place] [address] | [address] | | | | | [phone] | | | +--------+ + + + [...] [place] | | | | | | [id number] | | | | | | | | +--------+---------+ + + + documented as of this encounter Visit Diagnoses Not on filedocumented in this encounter"
--- OUTSIDE RECORDS SUMMARY | ~2019-09-28 | XMS | Encounter Summary ---
Demographics + + + | Address | [address] | | | [place] [address] | + + + | Home Phone [...] + +------+ + | Care Director Of Conservation Name | Role | Phone | + +------+ + | Wendi Aiken | PCP | | + +------+ + Reason for Visit + + + | Reason | Comments | + + + | Appointment | Reschedule | + + + Encounter Details +--------+ + + + + | Date | Type | Department | Care Team | Description | +--------+ + + + + | 06/14/ | Telephone | [facility] | Sj Valdes MD | Appointment | | 2017 | | NEUROSURGERY [address] | [address] | (Reschedule) | | | | [address] | [place] [address] | | | | | [place] | [phone] | | | | | [address] | | | | | | [phone] | | | +--------+ + + + [...] [place] | | | | | | [address] | | | | | | | | +--------+---------+ + + + documented as of this encounter Visit Diagnoses Not on filedocumented in this encounter"
--- OUTSIDE RECORDS SUMMARY | ~2019-09-28 | XMS | Encounter Summary ---
Demographics + + + | Address | [address] | | | [place] [address] | + + + | Home Phone [...] Team Providers + +------+ + | Care Emulsification Operator Name | Role | Phone | [...] | | | | | | | jesisca | | | | | | | [...] | | | | | | | CT SURG | | | | | | | IMPLNT | | | | | | | NEUROELECT,E | | | | | | | PIDURAL CT | | | | | | | IMPLANT | | | | | | | NEUROSTIM/RE | | | | | | | CEIVER CT | | | | | | | [...] + + | 08/03/ | Anesthesia | [facility] | Yojana Arellano CRNA | | | 2019 | Event [facility] | [address] | | | | | OPERATING RO[address] | [place] [address] | | | | | [address] | [phone] | | | | | [place], [place] | | | | | | [address] | | | | | | [phone] | | | +--------+ + + + [...] +----+---+ + + | | 0 | [place] | | | | 9 | 43-degrees [...] [address] | | eral | Antecubital; [id number] | Mikayla Marcial, | Gamal Whitney, | [...] | | | | | | DRIVE [place], [place] | | | | | | [address] | | | | | | | [...] - 08/03/2019 9:52 AM PDT Anesthesia Airway Oryycegpi82/4/2019 | | 9:33Preprocedure check: patient identified, oxygen, [...]
--- OUTSIDE RECORDS SUMMARY | ~2019-09-28 | XMS | Clinical Summary ---
Demographics + + + | Address | [address] | | | [place] [address] | + + + | Home Phone [...] | + + + | Organization | [facility] | + + + | Address | Unknown | + + + | Phone | Unavailable | + + + Support + + +---------+ + | Name | Relationship | Address | Phone | + + +---------+ + | Royce Menchaca | ECON | Unknown | | + + +---------+ + Care Team Providers + +------+ + | Care Intern Architect Name | Role | Phone | + +------+ + | Oxana Nye | PCP | | + +------+ + Source Comments RAD[facility] is fully live on both [facility] and [facility] Allergies + + + + + [...] + | Morphine | Hallucinations | | 01/30/20 | | | | | | 14 | | + + + + + + Medications + + + +---------+------+------+-------+ | Medication | Sig | Dispensed | Refills | Star | End | Statu | | | | | | t | Date | s | | | | | | Date | | | + + + +---------+------+------+-------+ | levothyroxine 112 | Take 88 mcg by mouth | | 0 | | | Activ | | mcg oral tablet | once daily. | | | | | e | + + + +---------+------+------+-------+ | clonazePAM 1 mg | Take 0.5 mg by mouth | | 0 | | | Activ | | oral [...] | + + + +---------+------+------+-------+ | ibuprofen 600 mg | Take by mouth. | | 0 | | | Activ | | oral tablet | | | | | | e | + + + +---------+------+------+-------+ | loratadine 10 mg | Take 10 mg by mouth | | 0 | | | Activ | | oral tablet | once daily. | | | | | e | + + + +---------+------+------+-------+ | Ranitidine HCl 150 | Take 150 mg by mouth | | 0 | | | Activ | | mg oral capsule | once daily at | | | | | e | | | bedtime. | | | | | | + + + +---------+------+------+-------+ | rOPINIRole 2 mg | Take 2 mg by mouth | | 0 | | | Activ | | oral tablet | once daily in the | | | | | e | | | evening. | | | | | | + + + +---------+------+------+-------+ | aspirin EC 81 mg | Take 81 mg by mouth | | 0 | | | Activ | | oral tablet,delayed | once daily. | | | | | e | | release (DR/EC) | | | | | | | + + + +---------+------+------+-------+ | NITROSTAT 0.4 mg | | | 0 | 03/0 | | Activ | | sublingual tablet, | | | | 8/20 | | e | | sublingual | | | | 16 | | | + + + +---------+------+------+-------+ | amLODIPine 5 mg | Take 1 tablet by | 90 | 3 | 05 | | Activ | | oral | [...] | + + + + + | Mammogram | | | | | | 7 | | | + + + + + | Pneumococcal | | | | | vaccination (1 of 2 | 2 | | | | - PCV13) | | | | + + + + + | Influenza (Flu) | 10/01/201 | | | | vaccination: MyChart | 9 | | | | opt out (#1) | | | | + + + + + Results Not on filefrom Last 3 Months Insurance + +--------+ +--------+ + +--------+ | Payer | Benefi | Subscriber | Effect | Phone | Address | Type | | | t Plan | ID | qamar | | | | | | / | | Dates | | | | | | Group | | | | | | + +--------+ +--------+ + +--------+ | MEDICARE | MEDICA | xxxxxxxxxx | | [phone] | [address] | Medica | | | RE A & | | [phone] | [address] | [phone] | re | | | B | | esent | | [place] | | | | | | | | [address] | | + +--------+ +--------+ + +--------+ | [employer] | AARP | xxxxxxxxxx | 07/01/20 | [phone] | [address] | Indemn | | RETIRED PEOPLE | | | 12-Pre | 9 | [id number] | ity | | | | | sent | | [place] | | | | | | | | [address] | | + +--------+ +--------+ + +--------+ + +--------+ +--------+ + + | Guarantor Name | Accoun | Relation to | Date | Phone | Billing Address | | | t Type | Patient | of | | | | | | | | | | + +--------+ +--------+ + + | Tyrese Rubio | Person | Self | [birth year] | [address] | | mandeep Caputo | al/Benji | | 1945 | [phone] | [address] [place] | | | jose | | | 8 (Home) | [address] | + +--------+ +--------+ + +
--- OUTSIDE RECORDS SUMMARY | ~2019-09-28 | XMS | Encounter Summary ---
Demographics + + + | Address | [address] | | | [place] [address] | + + + | Home Phone [...] Team Providers + +------+ + | Care Proposal Analyst Name | Role | Phone | [...] + + | 04/28/ | Emergency | [facility] | Jean-Paul Flowers, | Chronic hip pain, | | 2014 | | MED CTR EMER[facility] | MD [address] | right (Primary Dx); | | | | CENTER [address] | [place] | Chronic low back | | | | [place] | [address] | pain; Frequent falls | | | | [address] | | | | | | [phone] | | | +--------+ + + + [...] Nugent MD - 04/28/2015Follow-up with Isaura from [facility] social work for assistance with home health, [...] [place] | | | | | | [address] | | | | | | | [...] | ---- | | | 04/28/2015 08:18 [facility] | | | Emergency -Right Hip to Toe 04/23/2015 10:50 [facility]. | | | [facility] 04/13/2015 | | | 07:46 [facility] Emergency | | | -Other chronic [...] | not stated as uncontrolled 04/10/2015 14:[facility] -Surgical or [...] | | | | -Dehydration 04/09/2015 10:50 [facility] | | | Urgent Care -History [...] as uncontrolled | | | 04/07/2015 07:45 [facility] | | | Urgent Care -Unspecified [...] in stool 03/26/2015 | | | 07:15 [facility] Emergency | | | -Diabetes mellitus [...] other | | | medications 03/07/2015 10:45 [facility] | | | Urgent Care -Loss [...] of weight | | | 02/17/2015 09:15 [facility] | | | Urgent Care -Dysuria [...] in | | | breast 02/14/2015 09:50 [facility] | | | Urgent Care -Other [...] chronic pain | | | 02/11/2015 09:00 [facility] | | | Urgent Care -Loss [...] ------ --------- 1 0 | | | [facility] 2 | | | 0 [facility] 15 | | | 0 [facility] 18 | | | 0 Total Note: Visits indicate total | | | known visits. [place] Dx are the number of primary diagnoses on | | | the [facility]'s non-emergent dx list. | | | | | | --- SYLVIE has no Care Guidelines for this patient. [place] | | | Prescription Review PDMP Report [...]
--- OUTSIDE RECORDS SUMMARY | ~2019-09-28 | XMS | Encounter Summary ---
Demographics + + + | Address | [address] | | | [place] [address] | + + + | Home Phone [...] Team Providers + +------+ + | Care Section Gang Worker Name | Role | Phone | [...] | | | | | [place]iana [place], | | | | | | [place] [address] | | | +--------+ + + + [...]
--- OUTSIDE RECORDS SUMMARY | ~2019-09-28 | XMS | Encounter Summary ---
Demographics + + + | Address | [address] | | | [place] [address] | + + + | Home Phone [...] Providers + +------+ + | Care Clinical Psychologist Private Practice Name | Role | Phone | + +------+ + | Miquel Calhoun MD | PCP | | + +------+ + Encounter Details +--------+ + + + + | Date | Type | Department | Care Team | Description | +--------+ + + + + | 10/18/ | Telephone | [facility] | Khushbu Cortez, | | | 2012 | | [facility] | BAND TEACHER [place], [place] | | | | | [address] | [address] | | | | | [address] | | | | | | Aravind Hannon | | | | | | [place], [place] | | | | | | [address] | | | | | | [phone] | | | +--------+ + + + [...]
--- OUTSIDE RECORDS SUMMARY | ~2019-09-28 | XMS | Encounter Summary ---
Demographics + + + | Address | [address] | | | [place] [address] | + + + | Home Phone | | + + + | Preferred Language | Unknown | + + + | Marital Status | | + + + | Mandaeism Affiliation | 1013 | + + + | Race | Unknown | + + + | Ethnic Group | Unknown | + + + Author + + + | Author | [facility] | | | and Priteshana | + + + | Organization | [facility] | | | [...] Providers + +------+ + | Care Internet Sales Consultant Name | Role | Phone [...] | | | | | | | VA SURG | | | | | | | IMPLNT | | | | | | | NEUROELECT,E | | | | | | | PIDURAL VA | | | | | | | IMPLANT | | | | | | | NEUROSTIM/RE | | | | | | | CEIVER VA | | | | | | [...] + + | 08/03/ | Surgery | [facility] | Maykel Hutchins MD | LAMINOTOMY THORACIC | | 2019 | | [facility] | [address] | / LUMBAR W/ | | | | OPERATING RO[address] | [place] | PLACEMENT SPINAL | | | | [address] | [place] [address] | CORD STIMULATOR | | | | [place] | [phone] | | | | | [address] | | | | | | [phone] | | | +--------+---------+ + + + [...] note might be different from logan phillips. [facility]. 08/04/2019 DISCHARGE SUMMARY PATIENT NAME: Kori Mcintosh-Fawthrop [...] by elevating your feet Date Last Reviewed: 0107-0070 [employer]. [address] [place] [address]. All righ ts reserved. This information is not intended as a substitute for professional medical care. Always follow your healthcare professional's instructions. Acetaminophen; Hydrocodone tablets or capsules Brand Names: Anexsia, Lorcet, Lorcet HD, Lorcet Plus, Lortab, Epping, Verdrocet, Vicodin, Vi codin ES, Vicodin HP, [...] information carefully each time. Talk to your house visitor regarding the use of this medicine in children. Special care may be needed. What side effects may I notice from receiving this medicine? Side effects that you should report to your doctor or health care mgr as soon as p ossible: allergic reactions [...] (report to your doctor or health care mgr if they continue or are bothersome): constipation [...] official disposal site. Contact the [employer] at [phone] or your [facility] to find a site. If you [...] medicine? Tell your doctor or health care mgr if your pain does not go away, [...] Decreased | | | | | | penitentiary current | Responsiveness (May | | | [...] Faria MSW - 08/04/2019 2:12 PM PDTCase production team manager sent out Home Health order to [...] Date Acid reflux disease Acute renal failure ([facility]) April 2013 Adverse effect of anesthesia hx hallucinations after anesthesia x 3 yrs ago. Anesthesia hallucinated after bladder repair Arthralgia Arthritis Asthma Asthma Back pain Cancer ([facility]) 2004 breast Cataract Cerebrovascular accident (CVA) ([facility]) no per pt Chronic back pain Chronic back pain Chronic constipation Concussion 07/2015 Preceeded by seizure Constipation COPD (chronic obstructive pulmonary disease) ([facility]) Degenerative disc disease Depression Depression Diabetes mellitus ([facility]) Diabetes mellitus, type 2 ([facility]) diet controlled Diabetes type 2, controlled ([facility]) diet controlled Diarrhea Disorder of [...] 100 mg Oral BID PRN Julien Guzman MINING SPECULATOR HYDROcodone-acetaminophen (NORCO) 10-325 mg per tablet 1 tablet 1 tablet Oral Q4H PRN Julien Guzman, MINING SPECULATOR 1 tablet at 08/04/19 0502 HYDROmorphone (DILAUDID) injection 0.2-0.4 mg 0.2-0.4 mg Intravenous Q1H PRN Maykel ortiz MD 0.2 mg at 08/03/19 1700 methocarbamol (ROBAXIN) tablet 1,500 mg 1,500 mg Oral Q6H PRN RENATO DavisP ondansetron (ZOFRAN ODT) disintegrating tablet 4 mg 4 mg Oral Q6H PRN Julien Guzman MINING SPECULATOR rOPINIRole (REQUIP) tablet 4 mg 4 mg Oral 4x Daily PRN Maykel Hutchins MD senna (SENOKOT) tablet 8.6 mg 8.6 mg Oral BID PRN Julien Guzman MINING SPECULATOR sodium chloride 0.45% (1/2 NS) infusion Intravenous Continuous Maykel Hutchins MD 100 mL /hr at 08/03/19 1342 950 mL at 08/03/19 1342 sodium chloride 0.45% (1/2 NS) infusion Intravenous Continuous Julien Guzman MINING SPECULATOR 100 m L/hr at 08/04/19 0057 Allergies [...] [place] | | | | | | [address] | | | | | | | [...] | | | Needs | | | HIGH LIFT MULE OPERATOR | | | reques | | | [...] | | | POC | performed at [facility];[address] | | LABORATORY | | | | [address];[place], [place] | | | | | | [address] | | | | + + + + + + + + | Specimen | + + | | + + + + + + + | Performing | Address | City/State/Zipcode | Phone Number | | Organization | | | | + + + + + | [facility] | [address] | [place] [address] | [phone] | + + + + + POC Glucose (08/03/2019 4:15 PM PDT) + + + + + + | Component | Value | Ref Range | Performed | Pathologist | | | | | At | Signature | + + + + + + | Glucose, | 99Comment: Testing | 65 - 99 mg/dL | [facility] | | | POC | performed at [facility];[address] | | LABORATORY | | | | [address];[place] | | | | | | [address] | | | | + + + + + + + + | Specimen | + + | | + + + + + + + | Performing | Address | City/State/Zipcode | Phone Number | | Organization | | | | + + + + + | [facility] | [address] | [place] [address] | [phone] | + + + + + POC [...] | | | POC | performed at [facility];[address] | | LABORATORY | | | | [address];[place], [place] | | | | | | [address] | | | | + + + + + + + + | Specimen | + + | | + + + + + + + | Performing | Address | City/State/Zipcode | Phone Number | | Organization | | | | + + + + + | [facility] | [address] | [place] [address] | [phone] | + + + + + POC [...] | | | POC | performed at [facility];[address] | | LABORATORY | | | | [address];[place] | | | | | | [address] | | | | + + + + + + + + | Specimen | + + | | + + + + + + + | Performing | Address | City/State/Zipcode | Phone Number | | Organization | | | | + + + + + | [facility] | [address] [facility] [address] [facility] | [place] [address] | [phone] | + + + + + [place] [...] | | | POC | performed at [facility];[address] | | LABORATORY | | | | [address];[place] | | | | | | [address] | | | | + + + + + + + + | Specimen | + + | | + + + + + + + | Performing | Address | City/State/Zipcode | Phone Number | | Organization | | | | + + + + + | [facility] | [address] | [place] [address] | [phone] | + + + + + POC Glucose (08/03/2019 9:14 AM PDT) + + + + + + | Component | Value | Ref Range | Performed | Pathologist | | | | | At | Signature | + + + + + + | Glucose, | 80Comment: Testing | 65 - 99 mg/dL | [facility] | | | POC | performed at [facility];[address] | | LABORATORY | | | | [address];[place] | | | | | | [address] | | | | + + + + + + + + | Specimen | + + | | + + + + + + + | Performing | Address | City/State/Zipcode | Phone Number | | Organization | | | | + + + + + | [facility] | [address] | [place] [address] | [phone] | + + + + + Type [...] + + + | BB BAND | [id number] | | [facility] | | | | | | LABORATORY | | + + + + + + | BB BAND | Testing performed at | | [facility] | | | | [facility];[address] | | LABORATORY | | | | [address]rzej;[place] [address] | | | | + + + + + + + + | Specimen | + + | Blood | + + + + + + + | Performing | Address | City/State/Zipcode | Phone Number | | Organization | | | | + + + + + | [facility] | [address] | [place] [address] | [phone] | + + + + + POC Glucose (08/03/2019 7:23 AM PDT) + + + + + + | Component | Value | Ref Range | Performed | Pathologist | | | | | At | Signature | + + + + + + | Glucose, | 77Comment: Testing | 65 - 99 mg/dL | [place] | | | POC | performed at [facility];[address] | | LABORATORY | | | | [address];[place], [place] | | | | | | [address] | | | | + + + + + + + + | Specimen | + + | | + + + + + + + | Performing | Address | City/State/Zipcode | Phone Number | | Organization | | | | + + + + + | [facility] | [address] | [place] [address] | [phone] | + + + + + documented [...] | | | | | | | [facility] 08/03/19 at 1007, Intra-op | [...]
--- OUTSIDE RECORDS SUMMARY | ~2019-09-28 | XMS | Encounter Summary ---
Demographics + + + | Address | [address] | | | [place] [address] | + + + | Home Phone | | + + + | Preferred Language | Unknown | + + + | Marital Status | | + + + | Yazidism Affiliation | 1013 | + + + | Race | Unknown | + + + | Ethnic Group | Unknown | + + + Author + + + | Author | [email or web address] (Historical as of | | | 06-16-19) | + + + | Organization | [facility] (Historical as of | | [...] Providers + +------+ + | Care Statistical Geneticist Name | Role | Phone | + +------+ + | Romy De La Paz MD | PCP | | + +------+ + Encounter Details +--------+ + + + + | Date | Type | Department | Care Team | Description | +--------+ + + + + | 08/03/ | Procedure | [facility] | | | | 2019 | Pass | [facility] Center | | | | | | Operating Room [address] | | | | | | [address] [facility] | | | | | | [place] [address] | | | | | | [phone] | | | +--------+ + + + [...]
--- OUTSIDE RECORDS SUMMARY | ~2019-09-28 | XMS | Encounter Summary ---
Demographics + + + | Address | [address] | | | [place] [address] | + + + | Home Phone [...] Team Providers + +------+ + | Care Appeals Examiner Name | Role | Phone | [...] [place], [place] | | | | | [place], [place] | [address] | | | | | [address] | | | | | | [phone] | | | +--------+ + + + [...] | | | | | | [address], [place] | | | | | | [address] | | | | | | | [...] 0.88 m/s MV | | | Dec Wheeler: 3.57 m/s2 MV DecT: 230.60 ms MV E Mark: 0.82 m/s | | | MV E/A Ratio: 0.93 MV PHT: 66.87 ms MVA By PHT: 3.28 cm2 | | | Septal e': 0.05 m/s Septal E/e': 15.05 Lateral e': 0.08 m/s | | | Lateral E/e': 9.70 RAP: 5 mmHg Conductor Yard: | | | Authenticated by: Nena Franco Report Date/Time: -- | | | [id number]:11:24 | | + + + + + [...] cmLVPWd: 0.73 cmLVOT Area: 3.03 | | [id number] Diam: 1.96 cm%FS: 33.05 %EF(Teich): 62.03 %ESV(Teich): 29.33 mlLVIDs: | | 2.79 cmSV(Teich): 47.94 mlRVIDd: 2.59 cmLAESV(A-L): 41.85 mlLAESV Index (A-L): | | 26.32 ml/m2LAAs A2C: 12.87 [id number] A-L A2C: 32.77 mlLALs A2C: 4.29 cmLAAs A4C: | | 16.44 [id number] A-L A4C: 50.32 mlLALs A4C: 4.55 cmAV maxP.92 mmHgAV meanPG: | | 4.38 mmHgAV Vmax: 1.40 m/Tisha Vmean: 0.99 m/Tisha VTI: 32.81 cmAVA Vmax: 2.11 | | cm2AVA (VTI): 2.40 cj9TJWD (Vmax): 0.00 cm2/m2AVAI (VTI): 0.00 cm2/m2LVOT maxPG: | | 3.84 mmHgLVOT meanP.47 mmHgLVSI Dopp: 49.70 ml/m2LVSV Dopp: 79.02 mlLVOT | | Vmax: 0.98 m/sLVOT Vmean: 0.75 m/sLVOT VTI: 26.05 cmMV A Mark: 0.88 m/sMV Dec | | Wheeler: 3.57 m/s2MV DecT: 230.60 msMV E Mark: 0.82 m/sMV E/A Ratio: 0.93MV PHT: | | 66.87 msMVA By PHT: 3.28 ws5Aggtty e': 0.05 m/sSeptal E/e': 15.05Lateral e': | | 0.08 m/sLateral E/e': 9.70RAP: 5 mmHg Conductor Yard:Authenticated by: Nena | | AlstamparaReport Date/Time: -- [id number]:11:24 IMPRESSION: 1. This was a technically | [...] A Mark: 0.88 m/s | |MV Dec Wheeler: 3.57 m/s2 | |MV DecT: 230.60 ms | |MV E Mark: 0.82 m/s | |MV E/A Ratio: 0.93 | |MV PHT: 66.87 ms | |MVA By PHT: 3.28 cm2 | |Septal e': 0.05 m/s | |Septal E/e': 15.05 | |Lateral e': 0.08 m/s | |Lateral E/e': 9.70 | |RAP: 5 mmHg | | | |Conductor Yard: | |Authenticated by: Nena Franco | |Report Date/Time: -- [id number]:11:24 | | | |IMPRESSION: | |1. This [...]
--- OUTSIDE RECORDS SUMMARY | ~2019-09-28 | XMS | Encounter Summary ---
Demographics + + + | Address | [address] | | | [place] [address] | + + + | Home Phone [...] Team Providers + +------+ + | Care Nuclear Station Operator Name | Role | Phone | [...] + + | 05/09/ | Telephone | [facility] | Nick Martinez, | Results, Imaging | | 2017 | | PHYSIATRY [address] | PA-C [address] | | | | | [place], | [address] [place] | | | | | [place] [address] | [place] [address] | | | | | [phone] | [phone] | | | | | | | [...] [place] | | | | | | [address] | | | | | | | | +--------+---------+ + + + documented as of this encounter Visit Diagnoses Not on filedocumented in this encounter"
--- OUTSIDE RECORDS SUMMARY | ~2019-09-28 | XMS | Encounter Summary ---
Demographics + + + | Address | [address] | | | [place] [address] | + + + | Home Phone [...] Team Providers + +------+ + | Care Cooper Apprentice Name | Role | Phone | + [...] + + | 08/31/ | Telephone | [facility] | Niki Pizarro, | Other (patient | | 2019 | | NEUROSURGERY [address] | RN | trying to reach | | | | [place] [place] | | [facility]'s office) | | | | [place] | | | | | | [address] | | | | | | [phone] | | | +--------+ + + + [...] [place] | | | | | | [address] | | | | | | | | +--------+---------+ + + + documented as of this encounter Visit Diagnoses Not on filedocumented in this encounter"
--- OUTSIDE RECORDS SUMMARY | ~2019-09-28 | XMS | Clinical Summary ---
Demographics + + + | Address | [address] | | | [place] [address] | + + + | Home Phone [...] Team Providers + +------+ + | Care Accountant Property Name | Role | Phone | + +------+ + | Oxana Nye | PCP | | + +------+ + Source Comments RADHA is fully live on both [facility] and [facility] Allergies + + + + + + [...] MEDICARE | MEDICA | xxxxxxxxxx | | [phone] | [address] | Medica | | | RE A & | | [phone] | [address] | | | [address] | | esent | | [place] | | | | | | | | [address] | | + +--------+ +--------+ + +--------+ | [employer] | AARP | xxxxxxxxxx | 07/01/20 | [phone] | [address] | Indemn | | RETIRED PEOPLE | | | 12-Pre | 9 | [phone] | ity | | | | | sent | | [place] | | | | | | | | [address] | | + +--------+ +--------+ + +--------+ [...] | | 1945 | [phone] | [address] | | | jose | | | [address] (Home) | [address] | + +--------+ +--------+ + +
--- OUTSIDE RECORDS SUMMARY | ~2019-09-28 | XMS | Encounter Summary ---
Demographics + + + | Address | [address] | | | [place] [address] | + + + | Home Phone [...] Team Providers + +------+ + | Care Break Up Worker Name | Role | Phone | [...] as of this encounter Discharge Summaries Interface, Children'S Author In - 08/03/2006 2:03 AM PDT [id number] 08/ [id number] ROSANA Suarez [id number] Admission Date: 06/26/2006 Discharge Date: 06/30/2006 Staff [...] up with her primary care doctor in [place] to get lab followup within the next [...] psychiatrist, Dr. Pham; his phone number is [phone]. She is to make a followup appointment with him within the next week. The patient is also to follow up with Dr. Kel Young, he is located as well in [place], [place], and is associated with [facility]. She is to follow up with him for repeat electrolytes including potassium, magnesium, and phosphorus within the next several days. Monroe Disla M.D. Sherita Madrid M.D., M.P.H. / [id number] / [id number] / [id number] / [phone] cc: * Dr. Pham [facility], [place] FAX: [phone] Kel Young M.D. Electronically signed by Sherita Madrid 08-02-2006 11:01:13 AM documented i n this encounter Plan of Treatment Not on filedocumented as of this encounter Visit Diagnoses Not on filedocumented in this encounter"
--- OUTSIDE RECORDS SUMMARY | ~2019-09-28 | XMS | Encounter Summary ---
Demographics + + + | Address | [address] | | | [place] [address] | + + + | Home Phone [...] Team Providers + +------+ + | Care Cream Hauler Name | Role | Phone | + [...] for | | 2016 | | at [facility] [address] | [address] | new pt appt) | | | | [place]any Mailcode: | [address] [facility] | | | | | [address] | [place] [address] | | | | | [facility], | [phone] | | | | | [facility] | | | | | | floor [place], [place] | | | | | | [address] | | | | | | [phone] | | | +--------+ + + + [...]
--- OUTSIDE RECORDS SUMMARY | ~2019-09-28 | XMS | Encounter Summary ---
Demographics + + + | Address | [address] | | | [place] [address] | + + + | Home Phone [...] Team Providers + +------+ + | Care Customer Security Clerk Name | Role | Phone | + +------+ + | Miquel Calhoun MD | PCP | | + +------+ + Encounter Details +--------+ + + + + | Date | Type | Department | Care Team | Description | +--------+ + + + + | 11/14/ | Hospital | [facility] | Earnest Acosta MD | Hypothyroid; History | | 2013 - | Encounter | [facility] | [address] [facility] | of oral aphthous | | | | CLINICAL DECISION | [address], | ulcers; Anemia, | | | | [address] | [place] [address] | unspecified; | | 2013 | | [place], [place] | [phone] | Aspiration pneumonia | | | | [phone] | | ([facility]); COPD | | | | [phone] | | (chronic obstructive | | | | | | pulmonary disease) | | | | | | ([facility]); Generalized | | | | | | [...] 1140 Date of Service: 11/19/131920 Status: Signed Material Engineer: Fran Barnes MD (Physician) Related Notes: Original Note by Fran Barnes MD (Physician) filed at 11/20/13 1418 Patient ID: Ronald Gutierreztyfawthrop [id number] 68 y.o. 1945 Admit date: 11/14/2013 Discharge [...] - 99 mg/dL Final Testing performed at [facility], [address] [place] [address] BUN Date Value Range Status 11/19/2013 12 8 - 25 mg/dL Final Testing performed at [facility], [address] [place] [address] CREATININE Date Value Range Status 11/19/2013 0.80 0.50 - 1.00 mg/dL Final Testing performed at [facility], [address] [place] [address] BUN/CREAT Date Value Range Status 11/19/2013 15 Final Testing performed at [facility], [address] [place] [address] TOTAL PROTEIN Date Value Range Status 11/17/2013 5.2* 6.3 - 8.2 g/dL Final Testing performed at [address] [address] GLOBULIN Date Value Range Status 11/17/2013 2.1 1.3 - 4.9 g/dL Final Testing performed at [address] [address] TBIL Date Value Range Status 11/17/2013 0.6 0.1 - 1.5 mg/dL Final Testing performed at [address] [address] ALT Date Value Range Status 11/17/2013 21 10 - 65 U/L Final Testing performed at [facility], [address] [place] [address] AST Date Value Range Status 11/17/2013 19 10 - 45 U/L Final Testing performed at [address] [address] SODIUM Date Value Range Status 11/19/2013 133* 135 - 143 mmol/L Final Testing performed at [address] [address] POTASSIUM Date Value Range Status 11/19/2013 3.9 3.5 - 4.9 mmol/L Final Testing performed at [facility], [address] [place] [address] CHLORIDE Date Value Range Status 11/19/2013 101 99 - 109 mmol/L Final Testing performed at [facility], [address] [place] [address] CO2 Date Value Range Status 11/19/2013 24 23 - 32 mmol/L Final Testing performed at [facility], [address] [place] [address] ANION GAP AGAP Date Value Range Status 11/19/2013 12 5 - 20 mmol/L Final Testing performed at [facility], [address] [place] [address] X-ray Lumbar Spine Limited 2-3 Views 11/18/2013 [...] the emergency department, who was admitted to [facility] on November 14, 2013, when she was found to be unresponsive by EMS and thought to be secondary to Flexeril overdose and alcohol intoxication, and alcohol level was more than 300 , and patient was found to be hypotensive. Hence, she was intubated and brought to the [facility] from outside hospital and was started on dopamine and norepinephri ne and Tylenol level was checked, which was 44, for which she was put on acetylcysteine prot ocol and was transferred to medical floor on November 15, 2013, and Dr. Moore from psychia tric service was consulted after patient stabilized and she was taken to [facility] under Dr. Diana's care. 2. Chronic back pain, for which patient was discharged to [facility] on [place] in p.r.n. 3. Aphthous ulcers. [...] rash noted. No erythema. No pallor. Disposition: [facility] in patient psychiatric facility Patient Instructions: Medication [...] file for this visit. Miquel Calhoun MD [address] [place] [address] In 1 week Signed: FRNA BARNES 11/19/2013 7:21 PM documented in this [...] 11/19/132053 Date of Service: 11/19/132029 Status: Signed Material Engineer: Ruby Chávez RN (Registered Nurse) Pt currently on psychiatric hold; Transport here to take pt to [facility]. Pt complains of yessica n; Given Ultram (See MAR) VSS; Afebrile; No SOB. Nurse to nurse given to [facility]. Pt dc'd by bebo. Ruby Chávez 11/19/2013 Fran Porter MD - 11/19/2013 3:24 PM PSTFormatting of this note might be different from the or iginal. Progress Notes by Fran Barnes MD at 11/19/131523 Author: Fran Barnes MD Service: Hospitalist Author Type: Physician Filed: 11/19/131535 Date of Service: 11/19/131523 Status: Addendum Material Engineer: Fran Barnes MD (Physician) Related Notes: Original Note by Fran Barnes MD (Physician) filed at 11/19/13 1535 [facility] Service: Hospitalist Progress Note Ronald Kowthrleighann 68 y.o. [id number] 306/306-2 female MIQUEL Suarez [facility] Day: LOS: 5 days Patient Summary: .A 68-year-old female with past medical history of depression with m ultiple suicide attempts in the past, history of COPD, which she attributes to paint inhalat ion, history of anxiety, restless leg syndrome, GERD, diabetes mellitus type 2, diet control led, hypothyroidism, who was admitted to [facility] on the November 14, when the patient was found to be unresponsive by EMS and thought to be secondary to Fle xeril overdose and alcohol intoxication as her alcohol level was more than 300. The patient was found to be hypertensive, hence she was intubated and brought to the [facility] where she was put on dopamine, [...] by PCR (TAT 3 hr in house) [[id number]] Collected:11/19/13 0703 Specimen Information:Stool / Stool Updated:11/19/13806 Toxigenic C Difficile NEGATIVE 027 NAP1 BI 027 NAP1 BI PRESUMPTIVE NEGATIVE Magnesium [[id number]] Collected:11/19/13424 MAGNESIUM 2.2 mg/dL Updated:11/19/13806 Phosphorus [[id number]] Collected:11/19/13424 PHOSPHORUS 4.0 mg/dL Updated:11/19/13806 Basic metabolic panel [[id number]] (Abnormal) Collected:11/19/13424 Specimen Information:Blood Updated:11/19/13 0544 SODIUM 133 (L) mmol/L POTASSIUM 3.9 mmol/L CHLORIDE 101 mmol/L CO2 24 mmol/L ANION GAP AGAP 12 mmol/L GLUCOSE 108 (H) mg/dL BUN 12 mg/dL CREATININE 0.80 mg/dL BUN/CREAT 15 CALCIUM 9.2 mg/dL EGFR >60 mL/min/1.73m2 CBC w/auto diff (reflex to manual) [[id number]] (Abnormal) Collected:11/19/13 0425 Specimen Information:Blood Updated:11/19/13 0540 [...] K/uL MORPHOLOGY Fecal occult blood (in house) [[id number]] Collected:11/19/13 0146 Specimen Information:Stool / Stool Updated:11/19/13 0217 Fecal Occult Blood NEGATIVE Urine culture [[id number]] Collected:11/17/13 1013 Specimen Information:Urine / Urine, Catheter Updated:11/18/13 1710 Specimen Description CATHETERIZED URINE Specimen Description Result: Testing performed at [facility];[address] [place] [address] CULTURE NO GROWTH CULTURE Result: Testing performed at [facility], [address] [place] [address] REPORT STATUS 11/18/2013 FINAL Blood culture, 1 of 2 [[id number]] Collected:11/17/13 1042 Specimen Information:Blood / Blood Updated:11/18/13 1451 Specimen Description BLOOD Specimen Description Result: Testing performed at [facility];[address] [place] [address] SPECIAL REQUESTS Result: REPEAT TEST USING ALTERNATE ASSAYED CONTROL MATERIAL SPECIAL REQUESTS Result: Testing performed at [facility];[address] [place] [address] CULTURE NO GROWTH AT THIS TIME CULTURE Result: Testing performed at [facility], [address] [place] [address] REPORT STATUS PENDING Blood culture, 2 of 2 [[id number]] Collected:11/17/13 1050 Specimen Information:Blood / Blood Updated:11/18/13 1451 Specimen Description BLOOD Specimen Description Result: Testing performed at [facility];[address] [place] [address] SPECIAL REQUESTS PICC LINE SPECIAL REQUESTS Result: Testing performed at [facility];[address] [place] [address] CULTURE NO GROWTH AT THIS TIME CULTURE Result: Testing performed at [facility], [address] [place] [address] REPORT STATUS PENDING Sputum culture [[id number]] Collected:11/17/13 1153 Specimen Information:Sputum / Sputum Updated:11/18/13 1428 Specimen Description SPUTUM Specimen Description Result: Testing performed at [facility];[address] [place] [address] GRAM STAIN GREATER THAN 10 WBCS/LPF GRAM STAIN LESS THAN 10 SEC/LPF GRAM STAIN NO ORGANISMS SEEN GRAM STAIN Result: Testing performed at [facility], [address] [place] [address] CULTURE 1+ NORMAL UPPER RESPIRATORY CURTIS CULTURE Result: Testing performed at [facility], [address] [place] [address] REPORT STATUS PENDING Magnesium [[id number]] Collected:11/18/13 0600 Specimen Information:Blood Updated:11/18/13 1104 MAGNESIUM 2.1 mg/dL Phosphorus [[id number]] Collected:11/18/13 0600 Specimen Information:Blood Updated:11/18/13 1104 PHOSPHORUS 3.8 mg/dL Basic metabolic panel [[id number]] (Abnormal) Collected:11/18/13 0600 Specimen Information:Blood Updated:11/18/13 0716 SODIUM 135 mmol/L POTASSIUM 4.2 mmol/L CHLORIDE 104 mmol/L CO2 24 mmol/L ANION GAP AGAP 11 mmol/L GLUCOSE 110 (H) mg/dL BUN 11 mg/dL CREATININE 0.73 mg/dL BUN/CREAT 15 CALCIUM 9.0 mg/dL EGFR >60 mL/min/1.73m2 TSH [[id number]] Collected:11/18/13 0600 Specimen Information:Blood Updated:11/18/13 0713 TSH 4.28 uIU/mL CBC w/auto diff (reflex to manual) [[id number]] (Abnormal) Collected:11/18/13 0600 Specimen Information:Blood Updated:11/18/13 0647 [...] K/uL BASOPHILS ABS 0.0 K/uL Urine culture [[id number]] Collected:11/16/13 0951 Specimen Information:Urine / Urine, Clean Catch Updated:11/17/13 1618 Specimen Description CLEAN CATCH URINE Specimen Description Result: Testing performed at [address] [address] CULTURE NO GROWTH CULTURE Result: Testing performed at [facility], [address] [place] [address] REPORT STATUS 11/17/2013 FINAL Magnesium [[id number]] (Abnormal) Collected:11/16/13 0407 Specimen Information:Blood Updated:11/17/13 1141 MAGNESIUM 1.6 (L) mg/dL Phosphorus [[id number]] (Abnormal) Collected:11/16/13 0407 Specimen Information:Blood Updated:11/17/13 1141 PHOSPHORUS 1.7 (L) mg/dL Iron panel [[id number]] (Abnormal) Collected:11/17/1357 Specimen Information:Blood Updated:11/17/1318 IRON 31 ug/dL TIBC 155 (L) ug/dL IRON % SAT 20 % Vitamin B12 [[id number]] Collected:11/17/1357 Specimen Information:Blood Updated:11/17/1311 VITAMIN B12 417 pg/mL Folate [[id number]] Collected:11/17/1357 Specimen Information:Blood Updated:11/17/13710 FOLATE 17.7 ng/mL Ferritin [[id number]] Collected:11/17/13556 Specimen Information:Blood Updated:11/17/13 0711 FERRITIN 140 ng/mL Comprehensive metabolic panel [[id number]] (Abnormal) Collected:11/17/13 0557 Specimen Information:Blood Updated:11/17/13 0710 [...] mL/min/1.73m2 CBC w/auto diff (reflex to manual) [[id number]] (Abnormal) Collected:11/17/1357 Specimen Information:Blood Updated:11/17/13 0641 WBC [...] Case Management by ANGELO Lujan at 11/19/13 4434 Author: ANGELO Lujan Service: (none) Author Type: House Moving Supervisor Filed: 11/19/13 1229 Date of Service: 11/19/13 3064 Status: Signed Material Engineer: ANGELO Lujan (House Moving Supervisor) CM contacted Crisis Response Unit to inform [facility] that pt is now medically clear for MH eval uation. A DMHP will see pt in the hospital today for eval. CM spoke with IPR MD - he would like to reevaluate pt tomorrow to determine appropriateness for IPR. ANGELO Lujan Power Cleaner Operator onver hiren Transaction, Provider Unknown - 11/19/2013 12:40 PM PST Progress Notes by Emi Donaldson PT at 11/19/13 1240 Author: Emi Donaldson PT Service: (none) Author Type: Physical Therapist Filed: 11/19/13 1313 Date of Service: 11/19/13 1240 Status: Signed Material Engineer: Emi Donaldson PT (Physical Therapist) 11/19/13 [...] and I have a bladder appointment at [facility] I need to take care of [...] Date of Service: 11/19/13 1020 Status: Signed Material Engineer: Emi Donaldson PT (Physical Therapist) 11/19/13 1020 PT Last Visit PT Received On 11/19/13 Requires PT Follow Up Unavailable (getting bed bath, f/u later today for PT as schedule allows) onver hiren Transaction, Provider Unknown - 11/19/2013 4:29 AM PST Nurse Progress Note by Kala Peña RN at 11/19/13 8129 Author: Kala Peña RN Service: (none) Author Type: Registered Nurse Filed: 11/19/13 7463 Date of Service: 11/19/13 0429 Status: Signed Material Engineer: Kala Peña, RN (Registered Nurse) Pt [...] 11/18/131826 Date of Service: 11/18/131807 Status: Signed Material Engineer: Fran Barnes MD (Physician) [facility] Service: Hospitalist Progress Note Ronald Kowtjanene 68 y.o. [id number] 306/306-2 female [facility] Day: LOS: 4 days Patient Summary: .A 68-year-old female with past medical history of depression with m ultiple suicide attempts in the past, history of COPD, which she attributes to paint inhalat ion, history of anxiety, restless leg syndrome, GERD, diabetes mellitus type 2, diet control led, hypothyroidism, who was admitted to [facility] on the November 14, when the patient was found to be unresponsive by EMS and thought to be secondary to Fle xeril overdose and alcohol intoxication as her alcohol level was more than 300. The patient was found to be hypertensive, hence she was intubated and brought to the [facility] where she was put on dopamine, [...] mood is better after she talked with Pantry Attendant ,denied any suicidal ideation /thoughts at this moment . Patient c/o generalized weakness and evaluated by PT who recommended SNF and patient [facility]. She denied any chest pain, cough,sob ,no [...] Procedure Component Value Units Date/Time Urine culture [[id number]] Collected:11/17/13 1013 Specimen Information:Urine / Urine, Catheter Updated:11/18/13 1710 Specimen Description CATHETERIZED URINE Specimen Description Result: Testing performed at [facility] [facility] [address] CULTURE NO GROWTH CULTURE Result: Testing performed at [facility], [address] [place] [address] REPORT STATUS 11/18/2013 FINAL Blood culture, 1 of 2 [[id number]] Collected:11/17/13 1042 Specimen Information:Blood / Blood Updated:11/18/13 1451 Specimen Description BLOOD Specimen Description Result: Testing performed at [facility] [address] SPECIAL REQUESTS Result: REPEAT TEST USING ALTERNATE ASSAYED CONTROL MATERIAL SPECIAL REQUESTS Result: Testing performed at [facility];[address] [place] [address];[place] [address] CULTURE NO GROWTH AT THIS TIME CULTURE Result: Testing performed at [facility], [address] [place] [address] REPORT STATUS PENDING Blood culture, 2 of 2 [[id number]] Collected:11/17/13 1050 Specimen Information:Blood / Blood Updated:11/18/13 1451 Specimen Description BLOOD Specimen Description Result: Testing performed at [facility] [address] SPECIAL REQUESTS PICC LINE SPECIAL REQUESTS Result: Testing performed at [facility];[address] [facility];[place] [address] CULTURE NO GROWTH AT THIS TIME CULTURE Result: Testing performed at [facility], [address] [place] [address] REPORT STATUS PENDING Sputum culture [[id number]] Collected:11/17/13 1153 Specimen Information:Sputum / Sputum Updated:11/18/13 1428 Specimen Description SPUTUM Specimen Description Result: Testing performed at [facility];[address] [place] [address] GRAM STAIN GREATER THAN 10 WBCS/LPF GRAM STAIN LESS THAN 10 SEC/LPF GRAM STAIN NO ORGANISMS SEEN GRAM STAIN Result: Testing performed at [facility], [address] [place] [address] CULTURE 1+ NORMAL UPPER RESPIRATORY CURTIS CULTURE Result: Testing performed at [facility], [address] [place] [address] REPORT STATUS PENDING Magnesium [[id number]] Collected:11/18/13 0600 Specimen Information:Blood Updated:11/18/13 1104 MAGNESIUM 2.1 mg/dL Phosphorus [[id number]] Collected:11/18/13 0600 Specimen Information:Blood Updated:11/18/13 1104 PHOSPHORUS 3.8 mg/dL Basic metabolic panel [[id number]] (Abnormal) Collected:11/18/13 0600 Specimen Information:Blood Updated:11/18/13 0716 SODIUM 135 mmol/L POTASSIUM 4.2 mmol/L CHLORIDE 104 mmol/L CO2 24 mmol/L ANION GAP AGAP 11 mmol/L GLUCOSE 110 (H) mg/dL BUN 11 mg/dL CREATININE 0.73 mg/dL BUN/CREAT 15 CALCIUM 9.0 mg/dL EGFR >60 mL/min/1.73m2 TSH [[id number]] Collected:11/18/13 06 Specimen Information:Blood Updated:11/18/13 0713 TSH 4.28 uIU/mL CBC w/auto diff (reflex to manual) [[id number]] (Abnormal) Collected:11/18/13 06 Specimen Information:Blood Updated:11/18/13 0647 [...] K/uL BASOPHILS ABS 0.0 K/uL Urine culture [[id number]] Collected:11/16/13 0951 Specimen Information:Urine / Urine, Clean Catch Updated:11/17/13 1618 Specimen Description CLEAN CATCH URINE Specimen Description Result: Testing performed at [facility];[address] [place] [address] CULTURE NO GROWTH CULTURE Result: Testing performed at [facility], [address] [place] [address] REPORT STATUS 11/17/2013 FINAL Magnesium [[id number]] (Abnormal) Collected:11/16/13 0407 Specimen Information:Blood Updated:11/17/13 1141 MAGNESIUM 1.6 (L) mg/dL Phosphorus [[id number]] (Abnormal) Collected:11/16/13 0407 Specimen Information:Blood Updated:11/17/13 1141 PHOSPHORUS 1.7 (L) mg/dL Iron panel [[id number]] (Abnormal) Collected:11/17/13556 Specimen Information:Blood Updated:11/17/1318 IRON 31 ug/dL TIBC 155 (L) ug/dL IRON % SAT 20 % Vitamin B12 [[id number]] Collected:11/17/13556 Specimen Information:Blood Updated:11/17/1311 VITAMIN B12 417 pg/mL Folate [[id number]] Collected:11/17/13556 Specimen Information:Blood Updated:11/17/13710 FOLATE 17.7 ng/mL Ferritin [[id number]] Collected:11/17/13556 Specimen Information:Blood Updated:11/17/1311 FERRITIN 140 ng/mL Comprehensive metabolic panel [[id number]] (Abnormal) Collected:11/17/13556 Specimen Information:Blood Updated:11/17/13709 SODIUM 134 [...] mL/min/1.73m2 CBC w/auto diff (reflex to manual) [[id number]] (Abnormal) Collected:11/17/13556 Specimen Information:Blood Updated:11/17/13640 WBC 7.8 [...] K/uL BASOPHILS ABS 0.0 K/uL MORPHOLOGY Potassium [[id number]] Collected:11/16/13 1112 Specimen Information:Blood Updated:11/16/13 1133 POTASSIUM 3.6 mmol/L Sputum culture [[id number]] Collected:11/14/13 2055 Specimen Information:Sputum / Tracheal Aspirate Updated:11/16/13 1018 Specimen Description TRACHEAL ASPIRATE Specimen Description Result: Testing performed at [facility];[address] [place] [address];[place] [address] GRAM STAIN GREATER THAN 10 WBCS/LPF GRAM STAIN LESS THAN 10 SEC/LPF GRAM STAIN 2+ GRAM POSITIVE COCCI GRAM STAIN 1+ GRAM POSITIVE RODS GRAM STAIN Result: Testing performed at [address] [address] CULTURE 2+ NORMAL UPPER RESPIRATORY CURTIS CULTURE Result: Testing performed at [facility], [address] [place] [address] REPORT STATUS 11/16/2013 FINAL Acetaminophen level [[id number]] (Abnormal) Collected:11/16/13 0755 Specimen Information:Blood Updated:11/16/13 0828 ACETAMINOPHEN 3.7 (L) ug/mL CBC w/auto diff (reflex to manual) [[id number]] (Abnormal) Collected:11/16/13 0407 Specimen Information:Blood Updated:11/16/13 0503 [...] BASOPHILS ABS 0.0 K/uL Basic metabolic panel [[id number]] (Abnormal) Collected:11/16/13406 Specimen Information:Blood Updated:11/16/13439 SODIUM 143 mmol/L POTASSIUM 3.1 (L) mmol/L CHLORIDE 109 mmol/L CO2 27 mmol/L ANION GAP AGAP 10 mmol/L GLUCOSE 78 mg/dL BUN 7 (L) mg/dL CREATININE 0.77 mg/dL BUN/CREAT 9 CALCIUM 7.8 (L) mg/dL EGFR >60 mL/min/1.73m2 Acetaminophen level [[id number]] (Abnormal) Collected:11/16/13406 Specimen Information:Blood Updated:11/16/13439 ACETAMINOPHEN 4.5 (L) ug/mL Acetaminophen level [[id number]] (Abnormal) Collected:11/16/136 Specimen Information:Blood Updated:11/16/138 ACETAMINOPHEN 5.2 [...] (none) Author Type: Registered Nurse Filed: 11/18/13 2088 Date of Service: 11/18/131805 Status: Signed Material Engineer: Donita Hunter RN (Registered Nurse) director of vital statistics at bedside, pt seeming uplifted by conversation with liturgical music director. PCC in and asked t hat this RN not remove cords, call-light cord and other items nearby pt as outpatient receptionist had con tacted her regarding this RN's discussion that per policy and patients statements indicating that she intended to cause her self harm this RN felt it would be best to move items that s he could use to harm herself away from her after she finished speaking with the liturgical music director. Th is RN has increased rounding, line of site at RN station and outpatient receptionist continues to be in pl su[place]. Pt overall mood continue to be melancholy and tearful, but has not threatened to do chapito f harm since her discussion with the liturgical music director. Pt encouraged to express her emotions to staf f. Pt complains of diffuse pain, and desire to go to [place]. Pt medicated for pain per DEC. Wi ll continue to monitor closely.DONITA HUNTER RN onver hiren Transaction, Provider Unknown - 11/18/2013 2:59 PM PST Progress Notes by Franky Mcclain at 11/18/13 1710 Author: Franky Mcclain Service: (none) Author Type: Game Tester Filed: 11/18/13 3677 Date of Service: 11/18/13 4582 Status: Signed Material Engineer: Franky Mcclain (Game Tester) Received pt's request via RN for "someone [...] but now belongs to the "12 step mormon" and the [facility] to [facility]. [...] Date of Service: 11/18/13 1208 Status: Signed Material Engineer: Donita Hunter RN (Registered Nurse) Game Tester called to be with patient,, outpatient receptionist at bedside. Pt indicating desire to [...] 0615 Date of Service: 11/18/13612 Status: Signed Material Engineer: Kala Peña RN (Registered Nurse) Pt [...] 11/17/135 Date of Service: 11/17/131823 Status: Signed Material Engineer: Dick De Santiago RN (Registered Nurse) [...] Date of Service: 11/17/13 1341 Status: Signed Material Engineer: Sharif Romero (Game Tester) I visited with Pt to assess her [...] Date of Service: 11/17/13 113 Status: Signed Material Engineer: Emi Donaldson PT (Physical Therapist) 11/17/13 [...] Notes by Emi Donaldson PT at 11/17/13 4941 Author: Emi Donaldson PT Service: (none) Author Type: Physical Therapist Filed: 11/17/13 6060 Date of Service: 11/17/13 1133 Status: Signed Material Engineer: Emi Donaldson PT (Physical Therapist) 11/17/13 [...] Recommendations SNF Equipment Recommended (pending improvement, lift supplier relationship director c/s) Prior Function Level of [place] Modified independent with functional mobility;Modified independent wi [...] Date of Service: 11/17/13 1002 Status: Signed Material Engineer: Fran Barnes MD (Physician) Related Notes: Original Note by Fran Barnes MD (Physician) filed at 11/17/13 1016 [facility] Service: Hospitalist Progress Note Ronald Kowthrleighann 68 y.o. [id number] 306/306-2 female [facility] Day: LOS: 3 days Patient Summary: .A 68-year-old female with past medical history of depression with m ultiple suicide attempts in the past, history of COPD, which she attributes to paint inhalat ion, history of anxiety, restless leg syndrome, GERD, diabetes mellitus type 2, diet control led, hypothyroidism, who was admitted to [facility] on the November 14 014, when the patient was found to be unresponsive by EMS and thought to be secondary to Fle xeril overdose and alcohol intoxication as her alcohol level was more than 300. The patient was found to be hypertensive, hence she was intubated and brought to the [facility] where she was put on dopamine, [...] records from [facility]. The patient's 2 sons live in [employer], and she does not know the phone [...] Procedure Component Value Units Date/Time Iron panel [[id number]] (Abnormal) Collected:11/17/13556 Specimen Information:Blood Updated:11/17/13717 IRON 31 ug/dL TIBC 155 (L) ug/dL IRON % SAT 20 % Vitamin B12 [[id number]] Collected:11/17/13556 Specimen Information:Blood Updated:11/17/13710 VITAMIN B12 417 pg/mL Folate [[id number]] Collected:11/17/13556 Specimen Information:Blood Updated:11/17/13710 FOLATE 17.7 ng/mL Ferritin [[id number]] Collected:11/17/13556 Specimen Information:Blood Updated:11/17/13710 FERRITIN 140 ng/mL Comprehensive metabolic panel [[id number]] (Abnormal) Collected:11/17/13556 Specimen Information:Blood Updated:11/17/13709 SODIUM 134 [...] mL/min/1.73m2 CBC w/auto diff (reflex to manual) [[id number]] (Abnormal) Collected:11/17/13556 Specimen Information:Blood Updated:11/17/13 06 WBC [...] BASOPHILS ABS 0.0 K/uL MORPHOLOGY Urine culture [[id number]] Collected:11/16/13 0951 Specimen Information:Urine / Urine, Clean Catch Updated:11/16/13 1144 Potassium [[id number]] Collected:11/16/13 1112 Specimen Information:Blood Updated:11/16/13 1133 POTASSIUM 3.6 mmol/L Sputum culture [[id number]] Collected:11/14/13 2055 Specimen Information:Sputum / Tracheal Aspirate Updated:11/16/13 1018 Specimen Description TRACHEAL ASPIRATE Specimen Description Result: Testing performed at [facility];[address] [place] [address];[place] [address] GRAM STAIN GREATER THAN 10 WBCS/LPF GRAM STAIN LESS THAN 10 SEC/LPF GRAM STAIN 2+ GRAM POSITIVE COCCI GRAM STAIN 1+ GRAM POSITIVE RODS GRAM STAIN Result: Testing performed at [address] [address] CULTURE 2+ NORMAL UPPER RESPIRATORY CURTIS CULTURE Result: Testing performed at [facility], [address] [place] [address] REPORT STATUS 11/16/2013 FINAL Acetaminophen level [[id number]] (Abnormal) Collected:11/16/13 0755 Specimen Information:Blood Updated:11/16/13 0828 ACETAMINOPHEN 3.7 (L) ug/mL Magnesium [[id number]] Collected:11/16/13 0407 Specimen Information:Blood Updated:11/16/13 0800 Phosphorus [[id number]] Collected:11/16/13 0407 Specimen Information:Blood Updated:11/16/13 0800 CBC w/auto diff (reflex to manual) [[id number]] (Abnormal) Collected:11/16/13 0407 Specimen Information:Blood Updated:11/16/13 0503 [...] BASOPHILS ABS 0.0 K/uL Basic metabolic panel [[id number]] (Abnormal) Collected:11/16/13 0407 Specimen Information:Blood Updated:11/16/13 0440 SODIUM 143 mmol/L POTASSIUM 3.1 (L) mmol/L CHLORIDE 109 mmol/L CO2 27 mmol/L ANION GAP AGAP 10 mmol/L GLUCOSE 78 mg/dL BUN 7 (L) mg/dL CREATININE 0.77 mg/dL BUN/CREAT 9 CALCIUM 7.8 (L) mg/dL EGFR >60 mL/min/1.73m2 Acetaminophen level [[id number]] (Abnormal) Collected:11/16/13 0407 Specimen Information:Blood Updated:11/16/13 0440 ACETAMINOPHEN 4.5 (L) ug/mL Acetaminophen level [[id number]] (Abnormal) Collected:11/16/13 0036 Specimen Information:Blood Updated:11/16/13 0058 ACETAMINOPHEN 5.2 (L) ug/mL Troponin I [[id number]] (Abnormal) Collected:11/15/13 1602 Specimen Information:Blood Updated:11/15/13 1651 TROPONIN I 0.208 (H) ng/mL CK MB [[id number]] Collected:11/15/13 1602 MMB 3.4 ng/mL Updated:11/15/13 1651 CK-MB Index 2.4 CPK [[id number]] Collected:11/15/13 1602 Specimen Information:Blood Updated:11/15/13 1651 CPK 140 U/L Acetaminophen level [[id number]] Collected:11/15/13 1602 Specimen Information:Blood Updated:11/15/13 1651 ACETAMINOPHEN 10.0 ug/mL POCT glucose [[id number]] (Abnormal) Collected:11/14/13 1920 GLUCOSE,POC SCREEN 154 (H) mg/dL Updated:11/15/13 1317 Acetaminophen level [[id number]] (Abnormal) Collected:11/15/13 1132 Specimen Information:Blood Updated:11/15/13 1207 ACETAMINOPHEN 5.5 (L) ug/mL Basic metabolic panel [[id number]] (Abnormal) Collected:11/15/13 1132 Specimen Information:Blood Updated:11/15/13 1207 SODIUM 144 (H) mmol/L POTASSIUM 3.9 mmol/L CHLORIDE 114 (H) mmol/L CO2 20 (L) mmol/L ANION GAP AGAP 14 mmol/L GLUCOSE 153 (H) mg/dL BUN 8 mg/dL CREATININE 0.92 mg/dL BUN/CREAT 9 CALCIUM 7.4 (L) mg/dL EGFR >60 mL/min/1.73m2 CPK [[id number]] Collected:11/15/13850 Specimen Information:Blood Updated:11/15/1325 CPK 75 U/L Troponin I [[id number]] (Abnormal) Collected:11/15/13850 Specimen Information:Blood Updated:11/15/1325 TROPONIN I 0.325 (H) ng/mL CK MB [[id number]] Collected:11/15/13850 MMB 3.4 ng/mL Updated:11/15/13 0925 CK-MB Index 4.5 Acetaminophen level [[id number]] (Abnormal) Collected:11/15/13850 Specimen Information:Blood Updated:11/15/13 0925 ACETAMINOPHEN 6.3 (L) ug/mL POCT glucose [[id number]] Collected:11/15/13 0033 GLUCOSE,POC SCREEN 86 mg/dL Updated:11/15/13 0759 Osmolality [[id number]] (Abnormal) Collected:11/15/13 0408 Specimen Information:Blood Updated:11/15/13 0701 OSMOLALITY,SERUM 316 (H) mOsm/kg Lactic acid, plasma [[id number]] (Abnormal) Collected:11/15/13 0532 Specimen Information:Blood Updated:11/15/13 0617 LACTIC ACID 2.5 (H) mmol/L CBC w/auto diff (reflex to manual) [[id number]] (Abnormal) Collected:11/15/138 Specimen Information:Blood Updated:11/15/13 0530 WBC [...] BASOPHILS ABS 0.0 K/uL MORPHOLOGY Troponin I [[id number]] (Abnormal) Collected:11/15/13407 Specimen Information:Blood Updated:11/15/13522 TROPONIN I 0.647 (HH) ng/mL CK MB [[id number]] Collected:11/15/13407 MMB 3.3 ng/mL Updated:11/15/13522 CK-MB Index 5.9 CPK [[id number]] Collected:11/15/13407 Specimen Information:Blood Updated:11/15/13521 CPK 56 U/L Comprehensive metabolic panel [[id number]] (Abnormal) Collected:11/15/13407 Specimen Information:Blood Updated:11/15/13521 SODIUM 148 [...] 61 U/L EGFR >60 mL/min/1.73m2 Acetaminophen level [[id number]] (Abnormal) Collected:11/15/13407 Specimen Information:Blood Updated:11/15/13521 ACETAMINOPHEN 9.9 (L) ug/mL POC arterial CG4+ [[id number]] (Abnormal) Collected:11/14/13 2347 pH, Art 7.141 (LL) Updated:11/14/13 2351 POC PCO2 40 mmHg POC p02 283 (H) mmHg POC LACTATE 3.7 (H) mmol/L POC HCO3 14 (L) mmol/L POC TCO2 15 (L) mEq/L POC BASE DEFICIT 15 (H) mmol/L POC S02 100 (H) % POC FIO2 70 % POC COMMENTS Tidal Volume = 500 Lactic acid, plasma [[id number]] (Abnormal) Collected:11/14/132116 Specimen Information:Blood Updated:11/14/132155 LACTIC ACID 3.4 (H) mmol/L Basic metabolic panel [[id number]] (Abnormal) Collected:11/14/132112 Specimen Information:Blood Updated:11/14/132149 SODIUM 143 mmol/L POTASSIUM 3.0 (L) mmol/L CHLORIDE 114 (H) mmol/L CO2 16 (L) mmol/L ANION GAP AGAP 16 mmol/L GLUCOSE 187 (H) mg/dL BUN 10 mg/dL CREATININE 0.79 mg/dL BUN/CREAT 13 CALCIUM 6.5 (L) mg/dL EGFR >60 mL/min/1.73m2 Phosphorus [[id number]] Collected:11/14/132112 Specimen Information:Blood Updated:11/14/132149 PHOSPHORUS 2.4 mg/dL Magnesium [[id number]] Collected:11/14/132112 Specimen Information:Blood Updated:11/14/132149 MAGNESIUM 1.7 mg/dL Hepatic function panel [[id number]] (Abnormal) Collected:11/14/132112 TOTAL PROTEIN 5.6 (L) g/dL Updated:11/14/132149 Albumin 3.1 (L) g/dL TBIL 0.2 mg/dL BILI, DIRECT <0.1 mg/dL ALK PHOS 76 U/L AST 75 (H) U/L ALT 67 (H) U/L Acetaminophen level [[id number]] (Abnormal) Collected:11/14/132112 Specimen Information:Blood Updated:11/14/132149 ACETAMINOPHEN 44.4 (H) ug/mL Ionized calcium,to [facility] [[id number]] (Abnormal) Collected:11/14/132114 Specimen Information:Blood Updated:11/14/132145 CA++ 0.99 (L) mmol/L pH 7.179 (L) aPTT [[id number]] Collected:11/14/132112 Specimen Information:Blood Updated:11/14/132144 APTT 26 seconds Protime-INR [[id number]] Collected:11/14/132112 Specimen Information:Blood Updated:11/14/132144 INR 1.0 MRSA by PCR [[id number]] Collected:11/14/131929 Specimen Information:Nasopharyngeal / Nasopharyngeal Culture Updated:11/14/132130 SOURCE NARES(NOSE) RESULT NEGATIVE CBC w/auto diff (reflex to manual) [[id number]] (Abnormal) Collected:11/14/132112 Specimen Information:Blood Updated:11/14/132130 WBC 12.2 [...] ABS 0.0 K/uL Rapid drug screen, urine [[id number]] (Abnormal) Collected:11/14/131929 Specimen Information:Urine / Urine, Catheter Updated:11/14/132036 THC NEGATIVE PCP NEGATIVE COCAINE NEGATIVE METHAMPHETAMINES NEGATIVE OPIATES PRESUMPTIVE POSITIVE (A) AMPHETAMINE NEGATIVE BENZODIAZEPINE NEGATIVE TRICYCLIC ANTIDEPRESS PRESUMPTIVE POSITIVE (A) METHADONE NEGATIVE BARBITUATES NEGATIVE Urine microscopic only [[id number]] (Abnormal) Collected:11/14/131929 WBC 1-5 /hpf Updated:11/14/132035 RBC 0-2 /hpf EPITHELIAL NONE SEEN /lpf BACTERIA TRACE (A) Urinalysis (reflex to micro) [[id number]] (Abnormal) Collected:11/14/131929 Specimen Information:Urine / Urine, Catheter Updated:11/14/132035 COLOR UA OTHER CLARITY CLEAR Specific [place], UA 1.004 LEUKOCYTE ESTERASE TRACE (A) NITRITE [...] 0429 Date of Service: 11/17/13426 Status: Signed Material Engineer: Jazzy Patel RN (Registered Nurse) Pt currently sleeping. 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 Unable to score CIWA a s patient [...] Notes by Fran Barnes MD at 11/16/13 8335 Author: Fran Barnes MD Service: Hospitalist Author Type: Physician Filed: 11/17/13 1746 Date of Service: 11/16/13 1020 Status: Signed Material Engineer: Fran Barnes MD (Physician) Related Notes: Original Note by Fran Barnes MD (Physician) filed at 11/16/13 5288 [facility] Service: Hospitalist Progress Note Ronald Castañeda 68 y.o. [id number] female MIQUEL Suarez [facility] Day: LOS: 2 days Patient Summary: A 68-year-old female with past medical history of depression and his tory of suicidal attempts, COPD per patient but there is no documentation of it, who took an overdose of Flexeril and EMS found her in the bathtub with clothes on, and the patient was taken to [facility] ER where she was found to be unresponsive and hypertensive, an d was intubated and sent to [facility] for further workup and treatment. The [...] as tricyclic positive. She was put on CIPR protocol for alcohol withdrawal. Today when I [...] atient told that she lives alone in [employer]. [facility]. She [...] Procedure Component Value Units Date/Time Urine culture [[id number]] Collected:11/16/13 0951 Specimen Information:Urine / Urine, Clean Catch Updated:11/16/13 1144 Potassium [[id number]] Collected:11/16/13 1112 Specimen Information:Blood Updated:11/16/13 1133 POTASSIUM 3.6 mmol/L Sputum culture [[id number]] Collected:11/14/13 2055 Specimen Information:Sputum / Tracheal Aspirate Updated:11/16/13 1018 Specimen Description TRACHEAL ASPIRATE Specimen Description Result: Testing performed at [facility];[address] [place] [address];[place] [address] GRAM STAIN GREATER THAN 10 WBCS/LPF GRAM STAIN LESS THAN 10 SEC/LPF GRAM STAIN 2+ GRAM POSITIVE COCCI GRAM STAIN 1+ GRAM POSITIVE RODS GRAM STAIN Result: Testing performed at [facility], [address] [place] [address] CULTURE 2+ NORMAL UPPER RESPIRATORY CURTIS CULTURE Result: Testing performed at [facility], [address] [place] [address] REPORT STATUS 11/16/2013 FINAL Acetaminophen level [[id number]] (Abnormal) Collected:11/16/13 0755 Specimen Information:Blood Updated:11/16/13 0828 ACETAMINOPHEN 3.7 (L) ug/mL Magnesium [[id number]] Collected:11/16/13406 Specimen Information:Blood Updated:11/16/13 0800 Phosphorus [[id number]] Collected:11/16/13406 Specimen Information:Blood Updated:11/16/13 0800 CBC w/auto diff (reflex to manual) [[id number]] (Abnormal) Collected:11/16/13406 Specimen Information:Blood Updated:11/16/13 0503 WBC [...] BASOPHILS ABS 0.0 K/uL Basic metabolic panel [[id number]] (Abnormal) Collected:11/16/13406 Specimen Information:Blood Updated:11/16/13 044 SODIUM 143 mmol/L POTASSIUM 3.1 (L) mmol/L CHLORIDE 109 mmol/L CO2 27 mmol/L ANION GAP AGAP 10 mmol/L GLUCOSE 78 mg/dL BUN 7 (L) mg/dL CREATININE 0.77 mg/dL BUN/CREAT 9 CALCIUM 7.8 (L) mg/dL EGFR >60 mL/min/1.73m2 Acetaminophen level [[id number]] (Abnormal) Collected:11/16/13406 Specimen Information:Blood Updated:11/16/13 0440 ACETAMINOPHEN 4.5 (L) ug/mL Acetaminophen level [[id number]] (Abnormal) Collected:11/16/13 0036 Specimen Information:Blood Updated:11/16/13 0058 ACETAMINOPHEN 5.2 (L) ug/mL Troponin I [[id number]] (Abnormal) Collected:11/15/13 1602 Specimen Information:Blood Updated:11/15/13 1651 TROPONIN I 0.208 (H) ng/mL CK MB [[id number]] Collected:11/15/13 1602 MMB 3.4 ng/mL Updated:11/15/13 165 CK-MB Index 2.4 CPK [[id number]] Collected:11/15/13 160 Specimen Information:Blood Updated:11/15/13 1651 CPK 140 U/L Acetaminophen level [[id number]] Collected:11/15/13 160 Specimen Information:Blood Updated:11/15/13 1651 ACETAMINOPHEN 10.0 ug/mL POCT glucose [[id number]] (Abnormal) Collected:11/14/13 1920 GLUCOSE,POC SCREEN 154 (H) mg/dL Updated:11/15/13 1317 Acetaminophen level [[id number]] (Abnormal) Collected:11/15/13 1132 Specimen Information:Blood Updated:11/15/13 1207 ACETAMINOPHEN 5.5 (L) ug/mL Basic metabolic panel [[id number]] (Abnormal) Collected:11/15/13 1132 Specimen Information:Blood Updated:11/15/13 1207 SODIUM 144 (H) mmol/L POTASSIUM 3.9 mmol/L CHLORIDE 114 (H) mmol/L CO2 20 (L) mmol/L ANION GAP AGAP 14 mmol/L GLUCOSE 153 (H) mg/dL BUN 8 mg/dL CREATININE 0.92 mg/dL BUN/CREAT 9 CALCIUM 7.4 (L) mg/dL EGFR >60 mL/min/1.73m2 CPK [[id number]] Collected:11/15/1351 Specimen Information:Blood Updated:11/15/13 0925 CPK 75 U/L Troponin I [[id number]] (Abnormal) Collected:11/15/13850 Specimen Information:Blood Updated:11/15/13 0925 TROPONIN I 0.325 (H) ng/mL CK MB [[id number]] Collected:11/15/13850 MMB 3.4 ng/mL Updated:11/15/13 0925 CK-MB Index 4.5 Acetaminophen level [[id number]] (Abnormal) Collected:11/15/13 0851 Specimen Information:Blood Updated:11/15/13 0925 ACETAMINOPHEN 6.3 (L) ug/mL POCT glucose [[id number]] Collected:11/15/13 0033 GLUCOSE,POC SCREEN 86 mg/dL Updated:11/15/13 0759 Osmolality [[id number]] (Abnormal) Collected:11/15/13407 Specimen Information:Blood Updated:11/15/13 0701 OSMOLALITY,SERUM 316 (H) mOsm/kg Lactic acid, plasma [[id number]] (Abnormal) Collected:11/15/13 0532 Specimen Information:Blood Updated:11/15/13 0617 LACTIC ACID 2.5 (H) mmol/L CBC w/auto diff (reflex to manual) [[id number]] (Abnormal) Collected:11/15/13407 Specimen Information:Blood Updated:11/15/13529 WBC 5.5 [...] BASOPHILS ABS 0.0 K/uL MORPHOLOGY Troponin I [[id number]] (Abnormal) Collected:11/15/13407 Specimen Information:Blood Updated:11/15/13522 TROPONIN I 0.647 (HH) ng/mL CK MB [[id number]] Collected:11/15/13407 MMB 3.3 ng/mL Updated:11/15/13522 CK-MB Index 5.9 CPK [[id number]] Collected:11/15/13407 Specimen Information:Blood Updated:11/15/13521 CPK 56 U/L Comprehensive metabolic panel [[id number]] (Abnormal) Collected:11/15/13407 Specimen Information:Blood Updated:11/15/13521 SODIUM 148 [...] 61 U/L EGFR >60 mL/min/1.73m2 Acetaminophen level [[id number]] (Abnormal) Collected:11/15/13 0408 Specimen Information:Blood Updated:11/15/13 0522 ACETAMINOPHEN 9.9 (L) ug/mL POC arterial CG4+ [[id number]] (Abnormal) Collected:11/14/132346 pH, Art 7.141 (LL) Updated:11/14/13 2351 POC PCO2 40 mmHg POC p02 283 (H) mmHg POC LACTATE 3.7 (H) mmol/L POC HCO3 14 (L) mmol/L POC TCO2 15 (L) mEq/L POC BASE DEFICIT 15 (H) mmol/L POC S02 100 (H) % POC FIO2 70 % POC COMMENTS Tidal Volume = 500 Lactic acid, plasma [[id number]] (Abnormal) Collected:11/14/132116 Specimen Information:Blood Updated:11/14/132155 LACTIC ACID 3.4 (H) mmol/L Basic metabolic panel [[id number]] (Abnormal) Collected:11/14/132112 Specimen Information:Blood Updated:11/14/132149 SODIUM 143 mmol/L POTASSIUM 3.0 (L) mmol/L CHLORIDE 114 (H) mmol/L CO2 16 (L) mmol/L ANION GAP AGAP 16 mmol/L GLUCOSE 187 (H) mg/dL BUN 10 mg/dL CREATININE 0.79 mg/dL BUN/CREAT 13 CALCIUM 6.5 (L) mg/dL EGFR >60 mL/min/1.73m2 Phosphorus [[id number]] Collected:11/14/132112 Specimen Information:Blood Updated:11/14/132149 PHOSPHORUS 2.4 mg/dL Magnesium [[id number]] Collected:11/14/132112 Specimen Information:Blood Updated:11/14/132149 MAGNESIUM 1.7 mg/dL Hepatic function panel [[id number]] (Abnormal) Collected:11/14/132112 TOTAL PROTEIN 5.6 (L) g/dL Updated:11/14/132149 Albumin 3.1 (L) g/dL TBIL 0.2 mg/dL BILI, DIRECT <0.1 mg/dL ALK PHOS 76 U/L AST 75 (H) U/L ALT 67 (H) U/L Acetaminophen level [[id number]] (Abnormal) Collected:11/14/132112 Specimen Information:Blood Updated:11/14/132149 ACETAMINOPHEN 44.4 (H) ug/mL Ionized calcium,to [facility] [[id number]] (Abnormal) Collected:11/14/132114 Specimen Information:Blood Updated:11/14/132145 CA++ 0.99 (L) mmol/L pH 7.179 (L) aPTT [[id number]] Collected:11/14/132112 Specimen Information:Blood Updated:11/14/132144 APTT 26 seconds Protime-INR [[id number]] Collected:11/14/132112 Specimen Information:Blood Updated:11/14/132144 INR 1.0 MRSA by PCR [[id number]] Collected:11/14/131929 Specimen Information:Nasopharyngeal / Nasopharyngeal Culture Updated:11/14/132130 SOURCE NARES(NOSE) RESULT NEGATIVE CBC w/auto diff (reflex to manual) [[id number]] (Abnormal) Collected:11/14/132112 Specimen Information:Blood Updated:11/14/132130 WBC 12.2 [...] ABS 0.0 K/uL Rapid drug screen, urine [[id number]] (Abnormal) Collected:11/14/131929 Specimen Information:Urine / Urine, Catheter Updated:11/14/132036 THC NEGATIVE PCP NEGATIVE COCAINE NEGATIVE METHAMPHETAMINES NEGATIVE OPIATES PRESUMPTIVE POSITIVE (A) AMPHETAMINE NEGATIVE BENZODIAZEPINE NEGATIVE TRICYCLIC ANTIDEPRESS PRESUMPTIVE POSITIVE (A) METHADONE NEGATIVE BARBITUATES NEGATIVE Urine microscopic only [[id number]] (Abnormal) Collected:11/14/131929 WBC 1-5 /hpf Updated:11/14/132035 RBC 0-2 /hpf EPITHELIAL NONE SEEN /lpf BACTERIA TRACE (A) Urinalysis (reflex to micro) [[id number]] (Abnormal) Collected:11/14/131929 Specimen Information:Urine / Urine, Catheter Updated:11/14/132035 COLOR UA OTHER CLARITY CLEAR Specific [place], UA 1.004 LEUKOCYTE ESTERASE TRACE (A) NITRITE [...] 1423 Date of Service: 11/16/131421 Status: Signed Material Engineer: Kassidy Perez RN (Registered Nurse) Pt [...] Date of Service: 11/16/13 1140 Status: Signed Material Engineer: Jana Taylor Pt given to Kassidy MORAN on 3OP. Pt transferred via wheel chair. onver hiren Transaction, Provider Unknown - 11/16/2013 1:17 AM PST Nurse Progress Note by Sheryl Tomas RN at 11/16/13116 Author: Sheryl Tomas RN Service: (none) Author Type: Registered Nurse Filed: 11/16/13116 Date of Service: 11/16/13116 Status: Signed Material Engineer: Sheryl Tomas RN (Registered Nurse) Stopped Acetylcysteine drip per order. Sheryl Tomas RN iotr hesham Jana Osbornanne - 11/15/2013 4:28 PM PST Progress Notes by Jana Norris DO at 11/15/131627 Author: Jana Norris DO Service: (none) Author Type: Senior Loss Control Specialist Filed: 11/15/131628 Date of Service: 11/15/131627 Status: Signed Material Engineer: Jana Norris DO (Senior Loss Control Specialist) Pt was extubated this am and has [...] 11/15/131408 Date of Service: 11/15/131407 Status: Signed Material Engineer: Kourtney Aldana RN (Registered Nurse) Discussed psych consult with Dr. Norris. Received verbal order for psych consult. Notifi wilbert Flores RN, she will arrange for psych consult. When pt is stable for discharge, will need to call [facility] : [phone] to evalulate before disch arging pt. KOURTNEY ALDANA 11/15/2013 2:09 PM onver hiren Transaction, Provider Unknown - 11/15/2013 9:32 AM PST Progress Notes by Nick Jeffries RN at 11/15/13931 Author: Nick Jeffries RN Service: Wound/Ostomy Care Author Type: Registered Nurse Filed: 11/15/1334 Date of Service: 11/15/13931 Status: Signed Material Engineer: Nick Jeffries RN (Registered Nurse) Pt [...] 0557 Date of Service: 11/15/1357 Status: Signed Material Engineer: Mat Perez RPH (Pharmacist) Clinical Pharmacy Note: Renal Monitoring Ronald Koonel 68 y.o. female Ht Readings from Last 1 Encounters: No data found for Ht Wt Readings from Last 1 Encounters: 11/15/13 69.1 kg (152 lb 5.4 oz) CREATININE Date Value Range Status 11/15/2013 0.69 0.50 - 1.00 mg/dL Final Testing performed at [facility];[address] [place] [address];[place] [address] Creatinine clearance cannot be calculated - Unknown [...] 11/15/131951 Date of Service: 11/14/131856 Status: Signed Material Engineer: Roseline Sanon RN (Registered Nurse) Pt arrived [facility] from [facility]. No report called from [place] a nd minimal report received Via [facility]. Pt transferred to bed, ventilator applied to exist ing ETT via RT. Obvious smell of ETOH emitting from PT. No cough, gag or corneals noted. disbursing agent RN Gayle in room to assume care [...] DEWEY | | | | | | [id number] | | | | | | | [...] | EXTERNAL LAB | | performed at [facility];[address] [place] [address];[place] [address] 027 NAP1 BI | | | 027 NAP1 BI PRESUMPTIVE NEGATIVE | | | Detection of 027 NAP1 BI strains of C. difficile is presumptive and | | | for epidemiological purposes and not intended to guide or monitor | | | treatment for C. difficile infections. Testing performed at [facility];[address] | | [facility];[place] [address] | | + + + + +---------+ [...] | | | | | [place] [address] | | | | + + + + + + | RED CELL | 3.85Comment: Testing | 3.70 - 5.10 | EXTERNAL | | | COUNT | performed at [facility], [address] | M/uL | LAB | | | | [address], | | | | | | [place] [address] | | | | + + + + + + | Hgb | 10.7 (L)Comment: Testing | 11.3 - 15.5 | EXTERNAL | | | | performed at [facility], [address] | g/dL | LAB | | | | [address], | | | | | | [place] [address] | | | | + + + + + + | Hematocrit, | 32.8 (L)Comment: Testing | 34.0 - 46.0 % | EXTERNAL | | | POC | performed at [facility], [address] | | LAB | | | | [address], | | | | | | [place] [address] | | | | + + + + + + | MCV | 85.2Comment: Testing | 80.0 - 100.0 fl | EXTERNAL | | | | performed at [facility], [address] | | LAB | | | | [address], | | | | | | [place] [address] | | | | + + + + + + | MCH | 27.8Comment: Testing | 27.0 - 34.0 pg | EXTERNAL | | | | performed at [facility], [address] | | LAB | | | | [address], | | | | | | [place] [address] | | | | + + + + + + | MCHC | 32.6Comment: Testing | 32.0 - 35.5 | EXTERNAL | | | | performed at [facility], [address] | g/dL | LAB | | | | [address], | | | | | | [place] [address] | | | | + + + + + + | RDW-CV | 38.1Comment: Testing | 37 - 53 fl | EXTERNAL | | | | performed at [facility], [address] | | LAB | | | | [address], | | | | | | [place] [address] | | | | + + + + + + | Platelet | 222Comment: Testing | 150 - 400 K/uL | EXTERNAL | | | Count | performed at [facility], [address] | | LAB | | | Plasma | [address], | | | | | | [place] [address] | | | | + + + + + + | MPV | 7.8Comment: Testing | fl | EXTERNAL | | | | performed at [facility], [address] | | LAB | | | | [address], | | | | | | [place] [address] | | | | + + + + + + | Differentia | AUTOMATEDComment: | | EXTERNAL | | | l Type | Testing performed at | | LAB | | | | [facility], [address] | | | | | | [address], [place], [place] | | | | | | [id number] | | | | + + + [...] EXTERNAL | | | | performed at [facility], [address] | | LAB | | | | [address], | | | | | | [place] [address] | | | | + + + [...] EXTERNAL | | | | performed at [facility], [address] | | LAB | | | | [address], | | | | | | [place] [address] | | | | + + + [...] | | | | | [place] [address] | | | | + + + + + + | K | 3.9Comment: Testing | 3.5 - 4.9 | EXTERNAL | | | | performed at [facility], [address] | mmol/L | LAB | | | | [address], | | | | | | [place] [address] | | | | + + + + + + | Cl | 101Comment: Testing | 99 - 109 mmol/L | EXTERNAL | | | | performed at [facility], [address] | | LAB | | | | [address], | | | | | | [place] [address] | | | | + + + + + + | CO2 | 24Comment: Testing | 23 - 32 mmol/L | EXTERNAL | | | | performed at [facility], [address] | | LAB | | | | [address], | | | | | | [place] [address] | | | | + + + + + + | Anion Gap | 12Comment: Testing | 5 - 20 mmol/L | EXTERNAL | | | | performed at [facility], [address] | | LAB | | | | [address], | | | | | | [place] [address] | | | | + + + + + + | Glucose, | 108 (H)Comment: Testing | 65 - 99 mg/dL | EXTERNAL | | | Fasting | performed at [facility], [address] | | LAB | | | | [address], | | | | | | [place] [address] | | | | + + + + + + | BUN | 12Comment: Testing | 8 - 25 mg/dL | EXTERNAL | | | | performed at [facility], [address] | | LAB | | | | [address], | | | | | | [place] [address] | | | | + + + + + + | Creatinine | 0.80Comment: Testing | 0.50 - 1.00 | EXTERNAL | | | | performed at [facility], [address] | mg/dL | LAB | | | | [address], | | | | | | [place] [address] | | | | + + + + + + | BUN/Creatin | 15Comment: Testing | | EXTERNAL | | | ine Ratio | performed at [facility], [address] | | LAB | | | | [address], | | | | | | [place] [address] | | | | + + + + + + | Calcium | 9.2Comment: Testing | 8.5 - 10.2 | EXTERNAL | | | | performed at [facility], [address] | mg/dL | LAB | | | | [address], | | | | | | [place] [address] | | | | + + + [...] | | | | | [place] [address] | | | | + + + [...] | EXTERNAL LAB | | performed at [facility];[address] [facility];[place] [address] | | + + + + +---------+ [...] | | | | | [place] [address] | | | | + + + + + + | RED CELL | 3.77Comment: Testing | 3.70 - 5.10 | EXTERNAL | | | COUNT | performed at [facility], [address] | M/uL | LAB | | | | [address], | | | | | | [place] [address] | | | | + + + + + + | Hgb | 10.8 (L)Comment: Testing | 11.3 - 15.5 | EXTERNAL | | | | performed at [facility], [address] | g/dL | LAB | | | | [address], | | | | | | [place] [address] | | | | + + + + + + | Hematocrit, | 31.9 (L)Comment: Testing | 34.0 - 46.0 % | EXTERNAL | | | POC | performed at [facility], [address] | | LAB | | | | [address], | | | | | | [place] [address] | | | | + + + + + + | MCV | 84.8Comment: Testing | 80.0 - 100.0 fl | EXTERNAL | | | | performed at [facility], [address] | | LAB | | | | [address], | | | | | | [place] [address] | | | | + + + + + + | MCH | 28.8Comment: Testing | 27.0 - 34.0 pg | EXTERNAL | | | | performed at [facility], [address] | | LAB | | | | [address], | | | | | | [place] [address] | | | | + + + + + + | MCHC | 33.9Comment: Testing | 32.0 - 35.5 | EXTERNAL | | | | performed at [facility], [address] | g/dL | LAB | | | | [address], | | | | | | [place] [address] | | | | + + + + + + | RDW-CV | 37.6Comment: Testing | 37 - 53 fl | EXTERNAL | | | | performed at [facility], [address] | | LAB | | | | [address], | | | | | | [place] [address] | | | | + + + + + + | Platelet | 183Comment: Testing | 150 - 400 K/uL | EXTERNAL | | | Count | performed at [facility], [address] | | LAB | | | Plasma | [address], | | | | | | [place] [address] | | | | + + + + + + | MPV | 7.9Comment: Testing | fl | EXTERNAL | | | | performed at [facility], [address] | | LAB | | | | [address], | | | | | | [place] [address] | | | | + + + + + + | Differentia | AUTOMATEDComment: | | EXTERNAL | | | l Type | Testing performed at | | LAB | | | | [facility], [address] | | | | | | [place] | | | | | | [address] | | | | + + + [...] EXTERNAL | | | | performed at [facility], [address] | uIU/mL | LAB | | | | [address], | | | | | | [place] [address] | | | | + + + [...] EXTERNAL | | | | performed at [facility], [address] | | LAB | | | | [facility], | | | | | | [place] [address] | | | | + + + [...] EXTERNAL | | | | performed at [facility], [address] | | LAB | | | | [address], | | | | | | [place] [address] | | | | + + + [...] | | | | | [place] [address] | | | | + + + + + + | K | 4.2Comment: Testing | 3.5 - 4.9 | EXTERNAL | | | | performed at [facility], [address] | mmol/L | LAB | | | | [address], | | | | | | [place] [address] | | | | + + + + + + | Cl | 104Comment: Testing | 99 - 109 mmol/L | EXTERNAL | | | | performed at [facility], [address] | | LAB | | | | [address], | | | | | | [place] [address] | | | | + + + + + + | CO2 | 24Comment: Testing | 23 - 32 mmol/L | EXTERNAL | | | | performed at [facility], [address] | | LAB | | | | [address], | | | | | | [place] [address] | | | | + + + + + + | Anion Gap | 11Comment: Testing | 5 - 20 mmol/L | EXTERNAL | | | | performed at [facility], [address] | | LAB | | | | [address], | | | | | | [place] [address] | | | | + + + + + + | Glucose, | 110 (H)Comment: Testing | 65 - 99 mg/dL | EXTERNAL | | | Fasting | performed at [facility], [address] | | LAB | | | | [address], | | | | | | [place] [address] | | | | + + + + + + | BUN | 11Comment: Testing | 8 - 25 mg/dL | EXTERNAL | | | | performed at [facility], [address] | | LAB | | | | [address], | | | | | | [place] [address] | | | | + + + + + + | Creatinine | 0.73Comment: Testing | 0.50 - 1.00 | EXTERNAL | | | | performed at [facility], [address] | mg/dL | LAB | | | | [address], | | | | | | [place] [address] | | | | + + + + + + | BUN/Creatin | 15Comment: Testing | | EXTERNAL | | | ine Ratio | performed at [facility], [address] | | LAB | | | | [address], | | | | | | [place] [address] | | | | + + + + + + | Calcium | 9.0Comment: Testing | 8.5 - 10.2 | EXTERNAL | | | | performed at [facility], [address] | mg/dL | LAB | | | | [address], | | | | | | [place] [address] | | | | + + + [...] | | | | | | at [facility], [address] | | | | | | [address], | | | | | | [place] [address] | | | | + + + [...] EXTERNAL LAB | | Testing performed at [facility];[address] | | | [facility];[place] [address] GRAM STAIN | | | GREATER THAN 10 WBCS/LPF | | | LESS THAN 10 SEC/LPF | | | NO ORGANISMS SEEN | | | Testing performed at [facility], [facility]ides [employer], | | | [place] [address] CULTURE | | | 3+ ZITA GLABRATAAbnormal | | | 2+ ZITA DUBLINIENSISAbnormal | | | 2+ KLEBSIELLA OXYTOCAAbnormal | | | 1+ NORMAL UPPER RESPIRATORY | | | CURTIS Testing | | | performed at [facility], [facility] [place] [address] | | | REPORT STATUS 11/23/2013 FINAL [...] EXTERNAL LAB | | Testing performed at [facility];[address] | | | [facility];[place] [address] SPECIAL REQUESTS | | | PICC LINE | | | Testing performed at [facility];[address] [place] [address] CULTURE | | | NO GROWTH 6 DAYS | | | Testing performed at [facility], [address] | | | [place] [address] REPORT STATUS | | | 11/23/2013 FINAL [...] EXTERNAL LAB | | Testing performed at [facility];[address] | | | [facility] [address] SPECIAL REQUESTS | | | REPEAT TEST USING ALTERNATE ASSAYED CONTROL MATERIAL | | | Testing performed at [facility];[address] | | | [address];[place] [address] CULTURE | | | NO GROWTH 6 DAYS | | | Testing performed at [facility], [address] [place], | | | [place] [address] REPORT STATUS 11/23/2013 | | | FINAL [...] | Testing performed at | | | [facility];[address] [facility];[place] [address] CULTURE | | | NO GROWTH | | | Testing performed at [facility], [address] [facility], | | | [place] [address] REPORT STATUS | | | 11/18/2013 FINAL [...] | | | | | [place] [address] | | | | + + + + + + | TIBC | 155 (L)Comment: Testing | 260 - 490 ug/dL | EXTERNAL | | | | performed at [facility], [address] | | LAB | | | | [address], | | | | | | [place] [address] | | | | + + + + + + | Iron | 20Comment: Testing | 15 - 50 % | EXTERNAL | | | Saturation | performed at [facility], [address] | | LAB | | | | [address], | | | | | | [place] [address] | | | | + + + [...] EXTERNAL | | | | performed at [facility], [address] | | LAB | | | | [address], | | | | | | [place] [address] | | | | + + + + + + | RED CELL | 3.51 (L)Comment: Testing | 3.70 - 5.10 | EXTERNAL | | | COUNT | performed at [facility], [address] | M/uL | LAB | | | | [address], | | | | | | [place] [address] | | | | + + + + + + | Hgb | 9.6 (L)Comment: Testing | 11.3 - 15.5 | EXTERNAL | | | | performed at [facility], [address] | g/dL | LAB | | | | [address], | | | | | | [place] [address] | | | | + + + + + + | Hematocrit, | 29.5 (L)Comment: Testing | 34.0 - 46.0 % | EXTERNAL | | | POC | performed at [facility], [address] | | LAB | | | | [address], | | | | | | [place] [address] | | | | + + + + + + | MCV | 84.3Comment: Testing | 80.0 - 100.0 fl | EXTERNAL | | | | performed at [facility], [address] | | LAB | | | | [address], | | | | | | [place] [address] | | | | + + + + + + | MCH | 27.5Comment: Testing | 27.0 - 34.0 pg | EXTERNAL | | | | performed at [facility], [address] | | LAB | | | | [address], | | | | | | [place] [address] | | | | + + + + + + | MCHC | 32.6Comment: Testing | 32.0 - 35.5 | EXTERNAL | | | | performed at [facility], [address] | g/dL | LAB | | | | [address], | | | | | | [place] [address] | | | | + + + + + + | RDW-CV | 36.3 (L)Comment: Testing | 37 - 53 fl | EXTERNAL | | | | performed at [facility], [address] | | LAB | | | | [address], | | | | | | [place] [address] | | | | + + + + + + | Platelet | 151Comment: Testing | 150 - 400 K/uL | EXTERNAL | | | Count | performed at [facility], [address] | | LAB | | | Plasma | [address], | | | | | | [place] [address] | | | | + + + + + + | MPV | 7.9Comment: Testing | fl | EXTERNAL | | | | performed at [facility], [address] | | LAB | | | | [address], | | | | | | [place] [address] | | | | + + + + + + | Differentia | AUTOMATEDComment: | | EXTERNAL | | | l Type | Testing performed at | | LAB | | | | [facility], [address] | | | | | | [place] | | | | | | [address] | | | | + + + [...] EXTERNAL | | | | performed at [facility], [address] | | LAB | | | | [address], | | | | | | [place] [address] | | | | + + + [...] | | | External | performed at [facility], [address] | | LAB | | | | [address], | | | | | | [place] [address] | | | | + + + [...] | | | | | [place] [address] | | | | + + + [...] | | | | | [place] [address] | | | | + + + + + + | K | 3.8Comment: Testing | 3.5 - 4.9 | EXTERNAL | | | | performed at [facility], [address] | mmol/L | LAB | | | | [address], | | | | | | [place] [address] | | | | + + + + + + | Cl | 103Comment: Testing | 99 - 109 mmol/L | EXTERNAL | | | | performed at [facility], [address] | | LAB | | | | [address], | | | | | | [place] [address] | | | | + + + + + + | CO2 | 28Comment: Testing | 23 - 32 mmol/L | EXTERNAL | | | | performed at [facility], [address] | | LAB | | | | [address], | | | | | | [place] [address] | | | | + + + + + + | Anion Gap | 7Comment: Testing | 5 - 20 mmol/L | EXTERNAL | | | | performed at [facility], [address] | | LAB | | | | [address], | | | | | | [place] [address] | | | | + + + + + + | Glucose, | 131 (H)Comment: Testing | 65 - 99 mg/dL | EXTERNAL | | | Fasting | performed at [facility], [address] | | LAB | | | | [address], | | | | | | [place] [address] | | | | + + + + + + | BUN | 7 (L)Comment: Testing | 8 - 25 mg/dL | EXTERNAL | | | | performed at [facility], [address] | | LAB | | | | [address], | | | | | | [place] [address] | | | | + + + + + + | Creatinine | 0.61Comment: Testing | 0.50 - 1.00 | EXTERNAL | | | | performed at [facility], [address] | mg/dL | LAB | | | | [address], | | | | | | [place] [address] | | | | + + + + + + | BUN/Creatin | 11Comment: Testing | | EXTERNAL | | | ine Ratio | performed at [facility], [address] | | LAB | | | | [address], | | | | | | [place] [address] | | | | + + + + + + | Calcium | 8.5Comment: Testing | 8.5 - 10.2 | EXTERNAL | | | | performed at [facility], [address] | mg/dL | LAB | | | | [address], | | | | | | [place] [address] | | | | + + + + + + | Protein, | 5.2 (L)Comment: Testing | 6.3 - 8.2 g/dL | EXTERNAL | | | Total | performed at [facility], [address] | | LAB | | | | [address], | | | | | | [place] [address] | | | | + + + + + + | Albumin | 3.1 (L)Comment: Testing | 3.3 - 4.8 g/dL | EXTERNAL | | | | performed at [facility], [address] | | LAB | | | | [address], | | | | | | [place] [address] | | | | + + + + + + | Globulin | 2.1Comment: Testing | 1.3 - 4.9 g/dL | EXTERNAL | | | | performed at [facility], [address] | | LAB | | | | [address], | | | | | | [place] [address] | | | | + + + + + + | A/G Ratio | 1.5Comment: Testing | 1.0 - 2.4 | EXTERNAL | | | | performed at [facility], [address] | | LAB | | | | [address], | | | | | | [place] [address] | | | | + + + + + + | Bilirubin | 0.6Comment: Testing | 0.1 - 1.5 mg/dL | EXTERNAL | | | Total | performed at [facility], [address] | | LAB | | | | [address], | | | | | | [place] [address] | | | | + + + + + + | ALP, | 48Comment: Testing | 35 - 115 U/L | EXTERNAL | | | External | performed at [facility], [address] | | LAB | | | | [address], | | | | | | [place] [address] | | | | + + + + + + | AST | 19Comment: Testing | 10 - 45 U/L | EXTERNAL | | | | performed at [facility], [address] | | LAB | | | | [address], | | | | | | [place] [address] | | | | + + + + + + | ALT | 21Comment: Testing | 10 - 65 U/L | EXTERNAL | | | | performed at [facility], [address] | | LAB | | | | [address], | | | | | | [place] [address] | | | | + + + [...] | | | | | | at [facility], [address] | | | | | | [address], | | | | | | [place] [address] | | | | + + + [...] EXTERNAL | | | | performed at [facility];[address] | mmol/L | LAB | | | | [address];[place], [place] | | | | | | [address] | | | | + + + [...] | Testing performed at | | | [facility];[address] [facility];[place] [address] CULTURE | | | NO GROWTH | | | Testing performed at [facility], [address] [facility], | | | [place] [address] REPORT STATUS | | | 11/17/2013 FINAL [...] | | EN LEVEL | performed at [facility];[address] | ug/mL | LAB | | | | [address];[place] | | | | | | [address] | | | | + + + [...] EXTERNAL | | | | performed at [facility], [address] | | LAB | | | | [address], | | | | | | [place] [address] | | | | + + + + + + | RED CELL | 3.54 (L)Comment: Testing | 3.70 - 5.10 | EXTERNAL | | | COUNT | performed at [facility], [address] | M/uL | LAB | | | | [address], | | | | | | [place] [address] | | | | + + + + + + | Hgb | 10.1 (L)Comment: Testing | 11.3 - 15.5 | EXTERNAL | | | | performed at [facility], [address] | g/dL | LAB | | | | [address], | | | | | | [place] [address] | | | | + + + + + + | Hematocrit, | 29.5 (L)Comment: Testing | 34.0 - 46.0 % | EXTERNAL | | | POC | performed at [facility], [address] | | LAB | | | | [address], | | | | | | [place] [address] | | | | + + + + + + | MCV | 83.4Comment: Testing | 80.0 - 100.0 fl | EXTERNAL | | | | performed at [facility], [address] | | LAB | | | | [address], | | | | | | [place] [address] | | | | + + + + + + | MCH | 28.7Comment: Testing | 27.0 - 34.0 pg | EXTERNAL | | | | performed at [facility], [address] | | LAB | | | [address], | | | | | | [place] [address] | | | | + + + + + + | MCHC | 34.3Comment: Testing | 32.0 - 35.5 | EXTERNAL | | | | performed at [facility], [address] | g/dL | LAB | | | | [address], | | | | | | [place] [address] | | | | + + + + + + | RDW-CV | 37.6Comment: Testing | 37 - 53 fl | EXTERNAL | | | | performed at [facility], [address] | | LAB | | | | [address], | | | | | | [place] [address] | | | | + + + + + + | Platelet | 176Comment: Testing | 150 - 400 K/uL | EXTERNAL | | | Count | performed at [facility], [address] | | LAB | | | Plasma | [address], | | | | | | [place] [address] | | | | + + + + + + | MPV | 7.8Comment: Testing | fl | EXTERNAL | | | | performed at [facility], [address] | | LAB | | | | [address], | | | | | | [place] [address] | | | | + + + + + + | Differentia | AUTOMATEDComment: | | EXTERNAL | | | l Type | Testing performed at | | LAB | | | | [facility], [address] | | | | | | [place] | | | | | | [address] | | | | + + + [...] EXTERNAL | | | | performed at [facility];[address] | | LAB | | | | [facility];[place], [place] | | | | | | [address] | | | | + + [...] EXTERNAL | | | | performed at [facility] | | LAB | | | | [address];[place] | | | | | | [address] | | | | + + + [...] | | EN LEVEL | performed at [facility];[address] | ug/mL | LAB | | | | [address];[place], [place] | | | | | | [address] | | | | + + + [...] EXTERNAL | | | | performed at [facility];[address] | mmol/L | LAB | | | | [address];[place] | | | | | | [address] | | | | + + + + + + | K | 3.1 (L)Comment: Testing | 3.5 - 4.9 | EXTERNAL | | | | performed at [facility];[address] | mmol/L | LAB | | | | [address];[place] | | | | | | [address] | | | | + + + + + + | Cl | 109Comment: Testing | 99 - 109 mmol/L | EXTERNAL | | | | performed at [facility];[address] | | LAB | | | | [address];[place] | | | | | | [address] | | | | + + + + + + | CO2 | 27Comment: Testing | 23 - 32 mmol/L | EXTERNAL | | | | performed at [facility];[address] | | LAB | | | | [address];[place] | | | | | | [address] | | | | + + + + + + | Anion Gap | 10Comment: Testing | 5 - 20 mmol/L | EXTERNAL | | | | performed at [facility];[address] | | LAB | | | | [address];[place] | | | | | | [address] | | | | + + + + + + | Glucose, | 78Comment: Testing | 65 - 99 mg/dL | EXTERNAL | | | Fasting | performed at [facility];[address] | | LAB | | | | [address];[place] | | | | | | [address] | | | | + + + + + + | BUN | 7 (L)Comment: Testing | 8 - 25 mg/dL | EXTERNAL | | | | performed at [facility];[address] | | LAB | | | | [address];[place] | | | | | | [address] | | | | + + + + + + | Creatinine | 0.77Comment: Testing | 0.50 - 1.00 | EXTERNAL | | | | performed at [facility];[address] | mg/dL | LAB | | | | [address];[place] | | | | | | [address] | | | | + + + + + + | BUN/Creatin | 9Comment: Testing | | EXTERNAL | | | ine Ratio | performed at [facility];[address] | | LAB | | | | [address];[place] | | | | | | [address] | | | | + + + + + + | Calcium | 7.8 (L)Comment: Testing | 8.5 - 10.2 | EXTERNAL | | | | performed at [facility];[address] | mg/dL | LAB | | | | [address];[place], [place] | | | | | | [address] | | | | + + + [...] | | | | | | at [facility];[address];[place] [address] | | | | + + + [...] | | EN LEVEL | performed at [facility];[address] | ug/mL | LAB | | | | [address];[place] | | | | | | [address] | | | | + + + [...] EXTERNAL | | | | performed at [facility];[address] | | LAB | | | | [address] [facility];[place], [place] | | | | | | [address] | | | | + + + [...] | | | | | | ACUTE [place] Testing | | | | | | performed at [facility] | | | | | | [address];[place], [place] | | | | | | [address] | | | | + + + [...] EXTERNAL | | | | performed at [facility];[address] | | LAB | | | | [address];[place], [place] | | | | | | [address] | | | | + + + [...] | | EN LEVEL | performed at [facility];[address] | ug/mL | LAB | | | | [address];[place], [place] | | | | | | [address] | | | | + + + [...] TR | | | Vmax: 2.44 m/s Video Poker Floorman: Authenticated by: Finesse Cortez | | | [...] 23.26 cmAVA Vmax: 3.14 cm2AVA (VTI): 2.90 [id number] Dopp: | | 4.57 l/hutt4MELP Dopp: 7.95 l/minHR: 117.60 BPMLVOT maxP.36 mmHgLVOT [...] maxP.88 mmHgTR Vmax: | | 2.44 m/s Video Poker [place]: ABAuthenticated by: Finesse Aponte Date/Time: 11-15-2013 | [...] |TR Vmax: 2.44 m/s | | | |Video Poker Floorman: AB | |Authenticated by: Finesse Cortez MD [...] | | EN LEVEL | performed at [facility];[address] | ug/mL | LAB | | | | [address];[place], [place] | | | | | | [address] | | | | + + + [...] EXTERNAL | | | | performed at [facility];[address] | mmol/L | LAB | | | | [address];[place] | | | | | | [address] | | | | + + + + + + | K | 3.9Comment: Testing | 3.5 - 4.9 | EXTERNAL | | | | performed at [facility];[address] | mmol/L | LAB | | | | [address];[place] | | | | | | [address] | | | | + + + + + + | Cl | 114 (H)Comment: Testing | 99 - 109 mmol/L | EXTERNAL | | | | performed at [facility];[address] | | LAB | | | | [address];[place] | | | | | | [address] | | | | + + + + + + | CO2 | 20 (L)Comment: Testing | 23 - 32 mmol/L | EXTERNAL | | | | performed at [facility];[address] | | LAB | | | | [address];[place] | | | | | | [address] | | | | + + + + + + | Anion Gap | 14Comment: Testing | 5 - 20 mmol/L | EXTERNAL | | | | performed at [facility];[address] | | LAB | | | | [address];[place] | | | | | | [address] | | | | + + + + + + | Glucose, | 153 (H)Comment: Testing | 65 - 99 mg/dL | EXTERNAL | | | Fasting | performed at [facility];[address] | | LAB | | | | [address];[place] | | | | | | [address] | | | | + + + + + + | BUN | 8Comment: Testing | 8 - 25 mg/dL | EXTERNAL | | | | performed at [facility];[address] | | LAB | | | | [address];[place] | | | | | | [address] | | | | + + + + + + | Creatinine | 0.92Comment: Testing | 0.50 - 1.00 | EXTERNAL | | | | performed at [facility];[address] | mg/dL | LAB | | | | [address];[place] | | | | | | [address] | | | | + + + + + + | BUN/Creatin | 9Comment: Testing | | EXTERNAL | | | ine Ratio | performed at [facility];[address] | | LAB | | | | [address];[place] | | | | | | [address] | | | | + + + + + + | Calcium | 7.4 (L)Comment: Testing | 8.5 - 10.2 | EXTERNAL | | | | performed at [facility];[address] | mg/dL | LAB | | | | [address];[place] | | | | | | [address] | | | | + + + [...] | | | | | | at [facility];[address];[place] [address] | | | | + + + [...] EXTERNAL | | | | performed at [facility];[address] | | LAB | | | | [address];[place] | | | | | | [address] | | | | + + + [...] | | | | | | ACUTE [place] Testing | | | | | | performed at [facility];[address] | | | | | | [address];[place], [place] | | | | | | [address] | | | | + + + [...] EXTERNAL | | | | performed at [facility];[address] | | LAB | | | | [address];[place] | | | | | | [address] | | | | + + + [...] | | EN LEVEL | performed at [facility];[address] | ug/mL | LAB | | | | [address];[place], [place] | | | | | | [address] | | | | + + + [...] EXTERNAL | | | | performed at [facility];[address] | mmol/L | LAB | | | | [address];[place], [place] | | | | | | [address] | | | | + + + [...] EXTERNAL | | | | performed at [facility] | | LAB | | | | [address];[place] | | | | | | [address] | | | | + + + [...] | | | | | | ACUTE [place] CKTRP PHONED TO | | | | | | ICU GAYLE N AT 0540 BY | | | | | | LJREAD BACK RESULTS | | | | | | VERIFIEDTesting | | | | | | performed at [facility];[address] | | | | | | [address];[place] | | | | | | [address] | | | | + + + [...] | LAB | | | | [address] [employer] [address], | | | | | | [place] [address] | | | | + + + + + + | RED CELL | 3.94Comment: Testing | 3.70 - 5.10 | EXTERNAL | | | COUNT | performed at [facility], [address] | M/uL | LAB | | | | [address], | | | | | | [place] [address] | | | | + + + + + + | Hgb | 10.9 (L)Comment: Testing | 11.3 - 15.5 | EXTERNAL | | | | performed at [facility], [address] | g/dL | LAB | | | | [address], | | | | | | [place] [address] | | | | + + + + + + | Hematocrit, | 33.7 (L)Comment: Testing | 34.0 - 46.0 % | EXTERNAL | | | POC | performed at [facility], [address] | | LAB | | | | [address], | | | | | | [place] [address] | | | | + + + + + + | MCV | 85.6Comment: Testing | 80.0 - 100.0 fl | EXTERNAL | | | | performed at [facility], [address] | | LAB | | | | [address], | | | | | | [place] [address] | | | | + + + + + + | [facility] | 27.7Comment: Testing | 27.0 - 34.0 pg | EXTERNAL | | | | performed at [facility], [address] | | LAB | | | | [address], | | | | | | [place] [address] | | | | + + + + + + | MCHC | 32.3Comment: Testing | 32.0 - 35.5 | EXTERNAL | | | | performed at [facility], [address] | g/dL | LAB | | | | [address], | | | | | | [place] [address] | | | | + + + [...] | | | | | [place] [address] | | | | + + + + + + | MPV | 7.3Comment: Testing | fl | EXTERNAL | | | | performed at [facility], [address] | | LAB | | | | [address], | | | | | | [place] [address] | | | | + + + + + + | Differentia | AUTOMATEDComment: | | EXTERNAL | | | l Type | Testing performed at | | LAB | | | | [facility], [address] | | | | | | [place] | | | | | | [address] | | | | + + + [...] | | | Serum | performed at [facility];[address] | mOsm/kg | LAB | | | | [address];[place] | | | | | | [address] | | | | + + + [...] EXTERNAL | | | | performed at [facility];[address] | | LAB | | | | [address];[place], [place] | | | | | | [address] | | | | + + + [...] | | EN LEVEL | performed at [facility];888 | ug/mL | LAB | | | | [address];[place], [place] | | | | | | [address] | | | | + + + [...] EXTERNAL | | | | performed at [facility];888 | mmol/L | LAB | | | | [address];[place] | | | | | | [address] | | | | + + + + + + | K | 3.2 (L)Comment: Testing | 3.5 - 4.9 | EXTERNAL | | | | performed at [facility];888 | mmol/L | LAB | | | | [address];[place] | | | | | | [address] | | | | + + + + + + | Cl | 117 (H)Comment: Testing | 99 - 109 mmol/L | EXTERNAL | | | | performed at [facility];[address] | | LAB | | | | [address];[place] | | | | | | [address] | | | | + + + + + + | CO2 | 13 (LL)Comment: CO2 | 23 - 32 mmol/L | EXTERNAL | | | | PHONED TO AIDEE Butt AT | | LAB | | | | 0520 BY LJREAD BACK | | | | | | RESULTS VERIFIEDTesting | | | | | | performed at [facility];[address] | | | | | | [address];[place] | | | | | | [address] | | | | + + + + + + | Anion Gap | 20Comment: Testing | 5 - 20 mmol/L | EXTERNAL | | | | performed at [facility];[address] | | LAB | | | | [address];[place] | | | | | | [address] | | | | + + + + + + | Glucose, | 130 (H)Comment: Testing | 65 - 99 mg/dL | EXTERNAL | | | Fasting | performed at [facility];[address] | | LAB | | | | [address];[place] | | | | | | [address] | | | | + + + + + + | BUN | 8Comment: Testing | 8 - 25 mg/dL | EXTERNAL | | | | performed at [facility];[address] | | LAB | | | | [address];[place] | | | | | | [address] | | | | + + + + + + | Creatinine | 0.69Comment: Testing | 0.50 - 1.00 | EXTERNAL | | | | performed at [facility];888 | mg/dL | LAB | | | | [address];[place] | | | | | | [address] | | | | + + + + + + | BUN/Creatin | 12Comment: Testing | | EXTERNAL | | | ine Ratio | performed at [facility];[address] | | LAB | | | | [address];[place] | | | | | | [address] | | | | + + + + + + | Calcium | 6.7 (L)Comment: Testing | 8.5 - 10.2 | EXTERNAL | | | | performed at [facility];888 | mg/dL | LAB | | | | [address];[place] | | | | | | [address] | | | | + + + + + + | Protein, | 5.2 (L)Comment: Testing | 6.3 - 8.2 g/dL | EXTERNAL | | | Total | performed at [facility];[address] | | LAB | | | | [address];[place] | | | | | | [address] | | | | + + + + + + | Albumin | 3.3Comment: Testing | 3.3 - 4.8 g/dL | EXTERNAL | | | | performed at [facility];[address] | | LAB | | | | [address];[place] | | | | | | [address] | | | | + + + + + + | Globulin | 1.9Comment: Testing | 1.3 - 4.9 g/dL | EXTERNAL | | | | performed at [facility];[address] | | LAB | | | | [address];[place] | | | | | | [address] | | | | + + + + + + | A/G Ratio | 1.8Comment: Testing | 1.0 - 2.4 | EXTERNAL | | | | performed at [facility];[address] | | LAB | | | | [address];[place] | | | | | | [address] | | | | + + + + + + | Bilirubin | 0.2Comment: Testing | 0.1 - 1.5 mg/dL | EXTERNAL | | | Total | performed at [facility];[address] | | LAB | | | | [address];[place] | | | | | | [address] | | | | + + + + + + | ALP, | 47Comment: Testing | 35 - 115 U/L | EXTERNAL | | | External | performed at [facility];[address] | | LAB | | | | [address];[place] | | | | | | [address] | | | | + + + + + + | AST | 49 (H)Comment: Testing | 10 - 45 U/L | EXTERNAL | | | | performed at [facility];[address] | | LAB | | | | [address];[place] | | | | | | [address] | | | | + + + + + + | ALT | 61Comment: Testing | 10 - 65 U/L | EXTERNAL | | | | performed at [facility];[address] | | LAB | | | | [address];[place] | | | | | | [address] | | | | + + + [...] | | | | | | at [facility];[address] [place] [address] | | | | | | [facility];[place] [address] | | | | + + + [...] | | | Fingerstick | performed at [facility];[address] | | LAB | | | | [address];[place] | | | | | | [address] | | | | + + + [...] | | LAB | | | | [facility];[address];[place] [address] | | | | + + + + + + | PCO2 ART | 40Comment: Testing | 35 - 45 mmHg | EXTERNAL | | | | performed at [facility];[address] | | LAB | | | | [address];[place] | | | | | | [address] | | | | + + + + + + | PO2 ART | 283 (H)Comment: Testing | 80 - 105 mmHg | EXTERNAL | | | | performed at [facility];[address] | | LAB | | | | [address];[place] | | | | | | [address] | | | | + + + + + + | Lactate, | 3.7 (H)Comment: Testing | 0.36 - 1.25 | EXTERNAL | | | Arterial | performed at [facility];888 | mmol/L | LAB | | | | [address];[place] | | | | | | [address] | | | | + + + + + + | HCO3 ART | 14 (L)Comment: Testing | 22 - 26 mmol/L | EXTERNAL | | | | performed at [facility];[address] | | LAB | | | | [address];[place] | | | | | | [address] | | | | + + + + + + | POC | 15 (L)Comment: Testing | 23 - 27 mEq/L | EXTERNAL | | | APPEARANCE | performed at [facility];[address] | | LAB | | | UA | [address];[place] | | | | | | [address] | | | | + + + + + + | Base | 15 (H)Comment: Testing | 0.0 - 2.0 | EXTERNAL | | | deficit | performed at [facility];[address] | mmol/L | LAB | | | | [address];[place] | | | | | | [address] | | | | + + + + + + | O2 SAT ART | 100 (H)Comment: Testing | 95 - 98 % | EXTERNAL | | | | performed at [facility];[address] | | LAB | | | | [address];[place] | | | | | | [address] | | | | + + + + + + | FiO2, POC | 70Comment: Testing | % | EXTERNAL | | | | performed at [facility];[address] | | LAB | | | | [address];[place] | | | | | | [address] | | | | + + + + + + | Comment, | Tidal Volume = | | EXTERNAL | | | POC | 500Comment: Peep = 5Resp | | LAB | | | | Rate = 15Testing | | | | | | performed at [facility];[address] | | | | | | [address];[place] | | | | | | [address] | | | | + + + [...] EXTERNAL | | | | performed at [facility];888 | mmol/L | LAB | | | | [address];[place], [place] | | | | | | [address] | | | | + + + [...] | | | (Calc) | performed at [facility];888 | mmol/L | LAB | | | | [address];[place] | | | | | | [address] | | | | + + + + + + | pH, Bld | 7.179 (L)Comment: | 7.300 - 7.450 | EXTERNAL | | | | Testing performed at | | LAB | | | | [facility];[address] [facility] | | | | | | Blvd;[place] [address] | | | | + + + [...] | | | Patient | performed at [facility] | | LAB | | | | [address];[place], [place] | | | | | | [address] | | | | + + + [...] | | | | | performed at [facility];[address] | | | | | | [address];[place], [place] | | | | | | [address] | | | | + + + [...] EXTERNAL | | | | performed at [facility];[address] | | LAB | | | | [address];[place] | | | | | | [address] | | | | + + + + + + | RED CELL | 4.41Comment: Testing | 3.70 - 5.10 | EXTERNAL | | | COUNT | performed at [facility];888 | M/uL | LAB | | | | [address];[place] | | | | | | [address] | | | | + + + + + + | Hgb | 12.7Comment: Testing | 11.3 - 15.5 | EXTERNAL | | | | performed at [facility];888 | g/dL | LAB | | | | [address];[place] | | | | | | [address] | | | | + + + + + + | Hematocrit, | 37.4Comment: Testing | 34.0 - 46.0 % | EXTERNAL | | | POC | performed at [facility];[address] | | LAB | | | | [address];[place] | | | | | | [address] | | | | + + + + + + | MCV | 84.7Comment: Testing | 80.0 - 100.0 fl | EXTERNAL | | | | performed at [facility];[address] | | LAB | | | | [address];[place] | | | | | | [address] | | | | + + + + + + | MCH | 28.8Comment: Testing | 27.0 - 34.0 pg | EXTERNAL | | | | performed at [facility];[address] | | LAB | | | | [address];[place] | | | | | | [address] | | | | + + + + + + | MCHC | 34.0Comment: Testing | 32.0 - 35.5 | EXTERNAL | | | | performed at [facility];888 | g/dL | LAB | | | | [address];[place] | | | | | | [address] | | | | + + + + + + | RDW-CV | 37.2Comment: Testing | 37 - 53 fl | EXTERNAL | | | | performed at [facility];[address] | | LAB | | | | [address];[place] | | | | | | [address] | | | | + + + + + + | Platelet | 296Comment: Testing | 150 - 400 K/uL | EXTERNAL | | | Count | performed at [facility];[address] | | LAB | | | Plasma | [address];[place] | | | | | | [address] | | | | + + + + + + | MPV | 7.2Comment: Testing | fl | EXTERNAL | | | | performed at [facility];[address] | | LAB | | | | [address];[place] | | | | | | [address] | | | | + + + + + + | Differentia | AUTOMATEDComment: | | EXTERNAL | | | l Type | Testing performed at | | LAB | | | | [facility];[address];[place] [address] | | | | + + + [...] EXTERNAL | | | | performed at [facility];[address] | | LAB | | | | [address];[place] | | | | | | [address] | | | | + + + [...] EXTERNAL | | | | performed at [facility] | | LAB | | | | [address];[place], [place] | | | | | | [address] | | | | + + + [...] | | EN LEVEL | performed at [facility];888 | ug/mL | LAB | | | | [address];[place] | | | | | | [address] | | | | + + + [...] | | | Total | performed at [facility];[address] | | LAB | | | | [address];[place] | | | | | | [address] | | | | + + + + + + | Albumin | 3.1 (L)Comment: Testing | 3.3 - 4.8 g/dL | EXTERNAL | | | | performed at [facility];[address] | | LAB | | | | [address];[place] | | | | | | [address] | | | | + + + + + + | Bilirubin | 0.2Comment: Testing | 0.1 - 1.5 mg/dL | EXTERNAL | | | Total | performed at [facility];[address] | | LAB | | | | [address];[place] | | | | | | [address] | | | | + + + + + + | Bilirubin | <0.1Comment: Testing | 0.0 - 0.3 mg/dL | EXTERNAL | | | Direct | performed at [facility];[address] | | LAB | | | | [address];[place] | | | | | | [address] | | | | + + + + + + | ALP, | 76Comment: Testing | 35 - 115 U/L | EXTERNAL | | | External | performed at [facility];[address] | | LAB | | | | [address];[place] | | | | | | [address] | | | | + + + + + + | AST | 75 (H)Comment: Testing | 10 - 45 U/L | EXTERNAL | | | | performed at [facility];[address] | | LAB | | | | [address];[place] | | | | | | [address] | | | | + + + + + + | ALT | 67 (H)Comment: Testing | 10 - 65 U/L | EXTERNAL | | | | performed at [facility];[address] | | LAB | | | | [address];[place] | | | | | | [address] | | | | + + + [...] EXTERNAL | | | | performed at [facility];888 | mmol/L | LAB | | | | [address];[place] | | | | | | [address] | | | | + + + + + + | K | 3.0 (L)Comment: Testing | 3.5 - 4.9 | EXTERNAL | | | | performed at [facility];888 | mmol/L | LAB | | | | [address];[place] | | | | | | [address] | | | | + + + + + + | Cl | 114 (H)Comment: Testing | 99 - 109 mmol/L | EXTERNAL | | | | performed at [facility];[address] | | LAB | | | | [address];[place] | | | | | | [address] | | | | + + + + + + | CO2 | 16 (L)Comment: Testing | 23 - 32 mmol/L | EXTERNAL | | | | performed at [facility];[address] | | LAB | | | | [address];[place] | | | | | | [address] | | | | + + + + + + | Anion Gap | 16Comment: Testing | 5 - 20 mmol/L | EXTERNAL | | | | performed at [facility];[address] | | LAB | | | | [address];[place] | | | | | | [address] | | | | + + + + + + | Glucose, | 187 (H)Comment: Testing | 65 - 99 mg/dL | EXTERNAL | | | Fasting | performed at [facility];[address] | | LAB | | | | [address];[place] | | | | | | [address] | | | | + + + + + + | BUN | 10Comment: Testing | 8 - 25 mg/dL | EXTERNAL | | | | performed at [facility];[address] | | LAB | | | | [address];[place] | | | | | | [address] | | | | + + + + + + | Creatinine | 0.79Comment: Testing | 0.50 - 1.00 | EXTERNAL | | | | performed at [facility];888 | mg/dL | LAB | | | | [address];[place] | | | | | | [address] | | | | + + + + + + | BUN/Creatin | 13Comment: Testing | | EXTERNAL | | | ine Ratio | performed at [facility];[address] | | LAB | | | | [address];[place] | | | | | | [address] | | | | + + + + + + | Calcium | 6.5 (L)Comment: Testing | 8.5 - 10.2 | EXTERNAL | | | | performed at [facility];888 | mg/dL | LAB | | | | [address];[place] | | | | | | [address] | | | | + + + [...] | | | | | | at [facility];[address] | | | | | [address];[place] [address] | | | | + + + [...] Conversion - 06/15/2019 1:42 PM PDT RONALD [id number] years | | FemaleCT HEAD WO CONTRAST11/14/2013 [...] edema. Electronically | | | signed by Mnasoor Clark MD on 11/14/2013 9:10 PM | [...] | Testing performed at | | | [facility];[address] [facility];[place] [address] GRAM STAIN | | | GREATER THAN 10 WBCS/LPF | | | LESS THAN 10 SEC/LPF | | | 2+ GRAM POSITIVE COCCI | | | 1+ GRAM POSITIVE RODS | | | Testing performed at [facility], [address] | | | [place] [address] CULTURE | | | 2+ NORMAL UPPER RESPIRATORY CURTIS | | | Testing performed at [facility], [address] | | | [place] [address] REPORT STATUS | | | 11/16/2013 FINAL [...] EXTERNAL | | | | performed at [facility];[address] | | LAB | | | | [address];[place] | | | | | | [address] | | | | + + + + + + | RBC, UA | 0-2Comment: Testing | 0 - 5 /hpf | EXTERNAL | | | | performed at [facility];[address] | | LAB | | | | [address];[place] | | | | | | [address] | | | | + + + + + + | Epithelial | NONE SEENComment: | /lpf | EXTERNAL | | | Cells | Testing performed at | | LAB | | | | [facility];[address];[place] [address] | | | | + + + + + + | Bacteria, | TRACE (A)Comment: | | EXTERNAL | | | UA | Testing performed at | | LAB | | | | [facility];[address] [place] [address] | | | | | | [facility];[place] [address] | | | | + + + [...] EXTERNAL | | | | performed at [facility];[address] | | LAB | | | | [address];[place] | | | | | | [address] | | | | + + + + + + | Clarity | CLEARComment: Testing | | EXTERNAL | | | | performed at [facility];[address] | | LAB | | | | [address];[place] | | | | | | [address] | | | | + + + + + + | Specific | 1.004Comment: Testing | 1.001 - 1.035 | EXTERNAL | | | [place] | performed at [facility];[address] | | LAB | | | | [address];[place] | | | | | | [address] | | | | + + + + + + | Leukocyte | TRACE (A)Comment: | | EXTERNAL | | | Esterase, | Testing performed at | | LAB | | | Urine | [facility];[address];[place] [address] | | | | + + + + + + | Nitrite, | NEGATIVEComment: Testing | | EXTERNAL | | | Urine | performed at [facility];[address] | | LAB | | | | [address];[place] | | | | | | [address] | | | | + + + + + + | Urobilinoge | 0.2Comment: Testing | mg/dL | EXTERNAL | | | n, Urine | performed at [facility];[address] | | LAB | | | | [address];[place] | | | | | | [address] | | | | + + + + + + | Protein, | NEGATIVEComment: Testing | mg/dL | EXTERNAL | | | Urine | performed at [facility];[address] | | LAB | | | | [address];[place] | | | | | | [address] | | | | + + + + + + | pH, Urine | 5.0Comment: Testing | 4.6 - 8.0 | EXTERNAL | | | | performed at [facility];[address] | | LAB | | | | [address];[place] | | | | | | [address] | | | | + + + + + + | Blood, | NEGATIVEComment: Testing | | EXTERNAL | | | Urine | performed at [facility];[address] | | LAB | | | | [address];[place] | | | | | | [address] | | | | + + + + + + | Ketones | NEGATIVEComment: Testing | mg/dL | EXTERNAL | | | | performed at [facility];[address] | | LAB | | | | [address];[place] | | | | | | [address] | | | | + + + + + + | Bilirubin, | NEGATIVEComment: Testing | | EXTERNAL | | | Urine | performed at [facility];[address] | | LAB | | | | [address];[place] | | | | | | [address] | | | | + + + + + + | Glucose, | NEGATIVEComment: Testing | mg/dL | EXTERNAL | | | Urine | performed at [facility];[address] | | LAB | | | | [address];[place] | | | | | | [address] | | | | + + + [...] EXTERNAL LAB | | Testing performed at [facility];[address] [place] [address];[place] [address] MRSA PCR | | | NEGATIVE Testing performed at | | | [address];[place] [address] | | + + + + +---------+ [...] | | | Fingerstick | performed at [facility];[address] | | LAB | | | | [address];[place], [place] | | | | | | [address] | | | | + + + [...]
--- OUTSIDE RECORDS SUMMARY | ~2019-09-28 | XMS | Encounter Summary ---
Demographics + + + | Address | [address] | | | [place] [address] | + + + | Home Phone [...] Providers + +------+ + | Care Corrections Caseworker Name | Role | Phone | + +------+ + | Wendi Aiken | PCP | | + +------+ + Encounter Details +--------+ + + + + | Date | Type | Department | Care Team | Description | +--------+ + + + + | 04/07/ | Imaging | [facility] | Provider, | | | 2018 | Exam | [facility] EXTERNAL | [address] | | | | | IMAGING | [address] | | | | | [phone] | [place] [address] | | +--------+ + + + + [...] | | | | | | [address] [facility] | | | | | | [id number] | | | | | | | [...]
--- OUTSIDE RECORDS SUMMARY | ~2019-09-28 | XMS | Encounter Summary ---
Demographics + + + | Address | [address] | | | [place] [address] | + + + | Home Phone [...] Author | [facility] | + + + | Organization | [facility] | + + + | Address | Unknown | + + + | Phone | Unavailable | + + + Support + + +---------+ + | Name | Relationship | Address | Phone | + + +---------+ + | Royce Menchaca | ECON | Unknown | | + + +---------+ + Care Team Providers + +------+ + | Care Videotape Operator Name | Role | Phone | + +------+ + | Miquel Calhoun MD | PCP | | + +------+ + Encounter Details +--------+ + + + + | Date | Type | Department | Care Team | Description | +--------+ + + + + | 09/13/ | Telephone | [facility] | Khushbu Cortez, | | | 2012 | | [facility] | [employer] [place], [place] | | | | | [address] | [address] | | | | | [address] | | | | | | Aravind Hannon | | | | | | [place], [place] | | | | | | [address] | | | | | | [phone] | | | +--------+ + + + [...]
--- OUTSIDE RECORDS SUMMARY | ~2019-09-28 | XMS | Encounter Summary ---
Demographics + + + | Address | [address] | | | [place] [address] | + + + | Home Phone [...] Team Providers + +------+ + | Care Hoop Maker Helper Machine Name | Role | Phone | [...] as of this encounter Discharge Summaries Interface, Engineering Executive In - 08/03/2006 2:03 AM PDT [id number]/ [id number] ROSANA Suarez [id number] Admission Date: 06/26/2006 Discharge Date: 06/30/2006 Staff [...] up with her primary care doctor in [place] to get lab followup within the next [...] psychiatrist, Dr. Pham; his phone number is [phone]. She is to make a followup appointment with him within the next week. The patient is also to follow up with Dr. Kel Young, he is located as well in [place], [place], and is associated with [facility]. She is to follow up with him for repeat electrolytes including potassium, magnesium, and phosphorus within the next several days. Monroe Disla M.D. Sherita Madrid M.D., M.P.H. / [id number] / [id number] / [id number] / [id number] cc: * Dr. Pham [facility], [place] FAX: [phone] Kel Young M.D. Electronically signed by Sherita Madrid 08-02-2006 11:01:13 AM documented i n this encounter Plan of Treatment Not on filedocumented as of this encounter Visit Diagnoses Not on filedocumented in this encounter"
--- OUTSIDE RECORDS SUMMARY | ~2019-09-28 | XMS | Encounter Summary ---
Demographics + + + | Address | [address] | | | [place] [address] | + + + | Home Phone [...] Team Providers + +------+ + | Care Minute Clerk For Basic Traffic Name | Role | Phone | + [...] Thoracic or | [place], | [address] | | | | | lumbosacral | Shay Mukherjee MD | [place], | | | | | neuritis or | [address] | [place] | | | | | | ST [place] | [address] | | | | | radiculitis, | [place], [place] | Phone: | | | | | unspecified | [address] | [phone] | | | | | Procedures | Phone: | Fax: | | | | | NC INJECT | [phone] | [phone] | | | | | ANES/STEROID | Fax: | | | | | | FORAMEN | [phone] | | | | | | LUMBAR/SACRA | | | | | | | L W IMG | | | | | | | GUIDE ,1 | | | | | | | LEVEL [place] | | | | | | | [...] + + | 04/18/ | Hospital | [facility] | [place], | Left lumbar | | 2013 | Encounter | [facility] [address] | [place] [address] | radiculopathy; | | | | [address] [place] | MICHAEL FITCH, | Chronic low back | | | | [place] [address] | [place] [address] | pain; Facet | | | | 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 | [place] | [phone] | | [facility] | | [address] | | | - IMAGING | | [...]
--- OUTSIDE RECORDS SUMMARY | ~2019-09-28 | XMS | Encounter Summary ---
Demographics + + + | Address | [address] | | | [place] [address] | + + + | Home Phone | | + + + | Preferred Language | Unknown | + + + | Marital Status | Single | + + + | Spiritism Affiliation | NON | + + + [...] Team Providers + +------+ + | Care Racking Machine Operator Name | Role | Phone | + +------+ + | Oxana Nye | PCP | | + +------+ + Encounter Details +--------+ + + + + | Date | Type | Department | Care Team | Description | +--------+ + + + + | 03/30/ | MyChart | Cardiology General | Airam Fuchs MD | re:heart monitor | | 2016 | Encounter | at [facility] [address] | [address] [address] [facility] | | | | | [place] Mailcode: | [facility] [address] [place], | | | | | [address] | [place] [address] | | | | | [facility], | [phone] | | | | | [facility] | | | | | | floor [place], [place] | | | | | | [address] | | | | | | [phone] | | | +--------+ + + + [...]
--- OUTSIDE RECORDS SUMMARY | ~2019-09-28 | XMS | Encounter Summary ---
Demographics + + + | Address | [address] | | | [place] [address] | + + + | Home Phone [...] Team Providers + +------+ + | Care Cylinder Inspector And Tester Name | Role | Phone | [...] | | | | [place] | [place] [address] | [address] | | | | | Lumbar | Phone: | Phone: | | | | | radiculopath | [phone] | [phone] | | | | | y | Fax: | Fax: | | | | | Procedures | [phone] | [phone] | | | | | HIM 04/17/18 [...] fracture of fifth | | | | [place], | [address] [place] | lumbar vertebra, | | | | [place] [address] | [place] [address] | sequela (Primary | | | | [phone] | [phone] | Dx); Lumbar | | | | [...] [place] | | | | | | [address] | | | | | | | | +--------+---------+ + + + + + +--------+ + + | Name | Type | Priori | Associated Diagnoses | Order Schedule | | | | ty | | | + + +--------+ + + | AMB REFERRAL TO [facility] | Outpatient | Routin | [...]
--- OUTSIDE RECORDS SUMMARY | ~2019-09-28 | XMS | Encounter Summary ---
Demographics + + + | Address | [address] | | | [place] [address] | + + + | Home Phone [...] Providers + +------+ + | Care Assembler Molded Frames Name | Role | Phone | + [...] | | | | | (HCC) | [facility], | [address] | | | | | Scoliosis of | [place] [address] | [place], | | | | | lumbar | Phone: | [place] [address] | | | | | spine, | [phone] | Phone: | | | | | unspecified | Fax: | [phone] | | | | | scoliosis | [phone] | Fax: | | | | | type | | [phone] | | | | | Foraminal | [...] Scheduling Instructions | + + | Prefers [place] if possible | + + Reason for [...] low back | PA-C [address] [place] | | | | | pain with | [address] | [address] | | | | | right-sided | [place] | Phone: | | | | | sciatica | [address] | [phone] | | | | | Facet | Phone: | Fax: | | | | | arthritis of | [phone] | [phone] | | | | | lumbar | Fax: | | | | | | region | [phone] | | | | | | Adolescent [...] + + | 07/12/ | Office | [facility] | Sj Valdes MD | SACROILIITIS | | 2017 | Visit | NEUROSURGERY [address] | [address] | (Primary Dx); | | | | [facility] [address] | [place] [address] | Scoliosis of lumbar | | | | [place] | [phone] | spine, unspecified | | | | [address] | | scoliosis type; | | | | [phone] | | Foraminal stenosis | | | [...] logan french original. Sj Valdes M.D. [address] [place] [address], [address] [place] [address] NEUROSURGERY HISTORY AND PHYSICAL EXAMINATION CHIEF COMPLAINT: [...] has no apparent deficits with short or custodial memory. MOTOR EXAM: (5 IS NORMAL) * Indicates pain limited MUSCLE/ MOVEMENT: RIGHT LEFT Deltoids 5 4+ Biceps 5 5 Triceps 5 5 Wrist Flexion 5 5 Wrist Extension 5 5 Median Intrinsics 5 4 Ulnar Intrinsics 5 4 Keymodule Assembly Supervisor Strength 5 4 Hip Flexion 5 4* [...] she continues to see a psychologist in [place]. Despite her continued evaluation, I do not [...] | | | | | | [address] [place], [place] | | | | | | [id number] | | | | | | | [...] | | | region ([facility]) Left | | | | | | [...]
--- OUTSIDE RECORDS SUMMARY | ~2019-09-28 | XMS | Encounter Summary ---
Demographics + + + | Address | [address] | | | [place] [address] | + + + | Home Phone [...] Team Providers + +------+ + | Care Retail Advertising Account Executive Name | Role | Phone | + +------+ + | Miquel Calhoun MD | PCP | | + +------+ + Encounter Details +--------+ + + + + | Date | Type | Department | Care Team | Description | +--------+ + + + + | 11/14/ | Hospital | [facility] | Earnest Acosta MD | Hypothyroid; History | | 2013 - | Encounter | MEDICAL [facility]ENTER | [address] [facility] | of oral aphthous | | | | CLINICAL DECISION | [address], | ulcers; Anemia, | | | | [address] | [place] [address] | unspecified; | | 2013 | | [place], [place] | [phone] | Aspiration pneumonia | | | | [address] | | ([facility]); COPD | | | | [phone] | | (chronic obstructive | | | | | | pulmonary disease) | | | | | | ([facility]); Generalized | | | | | [...] 1140 Date of Service: 11/19/131920 Status: Signed Chiropractic Assistant: Fran Barnes MD (Physician) Related Notes: Original Note by Fran Barnes MD (Physician) filed at 11/20/13 1418 Patient ID: Ronald Gutierreztyfawthrop [id number] 68 y.o. 1945 Admit date: 11/14/2013 Discharge [...] - 99 mg/dL Final Testing performed at [facility], [address] [place] [address] BUN Date Value Range Status 11/19/2013 12 8 - 25 mg/dL Final Testing performed at [facility], [address] [place] [address] CREATININE Date Value Range Status 11/19/2013 0.80 0.50 - 1.00 mg/dL Final Testing performed at [facility], [address] [place] [address] BUN/CREAT Date Value Range Status 11/19/2013 15 Final Testing performed at [facility], [address] [place] [address] TOTAL PROTEIN Date Value Range Status 11/17/2013 5.2* 6.3 - 8.2 g/dL Final Testing performed at [address] [address] GLOBULIN Date Value Range Status 11/17/2013 2.1 1.3 - 4.9 g/dL Final Testing performed at [address] [address] TBIL Date Value Range Status 11/17/2013 0.6 0.1 - 1.5 mg/dL Final Testing performed at [address] [address] ALT Date Value Range Status 11/17/2013 21 10 - 65 U/L Final Testing performed at [facility], [address] [place] [address] AST Date Value Range Status 11/17/2013 19 10 - 45 U/L Final Testing performed at [address] [address] SODIUM Date Value Range Status 11/19/2013 133* 135 - 143 mmol/L Final Testing performed at [address] [address] POTASSIUM Date Value Range Status 11/19/2013 3.9 3.5 - 4.9 mmol/L Final Testing performed at [facility], [address] [place] [address] CHLORIDE Date Value Range Status 11/19/2013 101 99 - 109 mmol/L Final Testing performed at [facility], [address] [place] [address] CO2 Date Value Range Status 11/19/2013 24 23 - 32 mmol/L Final Testing performed at [facility], [address] [place] [address] ANION GAP AGAP Date Value Range Status 11/19/2013 12 5 - 20 mmol/L Final Testing performed at [facility], [address] [place] [address] X-ray Lumbar Spine Limited 2-3 Views 11/18/2013 [...] the emergency department, who was admitted to [facility] on November 14, 2013, when she was found to be unresponsive by EMS and thought to be secondary to Flexeril overdose and alcohol intoxication, and alcohol level was more than 300 , and patient was found to be hypotensive. Hence, she was intubated and brought to the [facility] from outside hospital and was started on dopamine and norepinephri ne and Tylenol level was checked, which was 44, for which she was put on acetylcysteine prot ocol and was transferred to medical floor on November 15, 2013, and Dr. Moore from psychia tric service was consulted after patient stabilized and she was taken to [facility] under Dr. Diana's care. 2. Chronic back pain, for which patient was discharged to [facility] on [place] in p.r.n. 3. Aphthous [...] rash noted. No erythema. No pallor. Disposition: [facility] in patient psychiatric facility Patient Instructions: Medication [...] file for this visit. Miquel Calhoun MD [address] [place] [address] In 1 week Signed: FRAN BARNES 11/19/2013 [...] 11/19/132053 Date of Service: 11/19/132029 Status: Signed Chiropractic Assistant: Ruby Chávez RN (Registered Nurse) Pt currently on psychiatric hold; Transport here to take pt to [facility]. Pt complains of yessica n; Given Ultram (See MAR) VSS; Afebrile; No SOB. Nurse to nurse given to [facility]. Pt dc'd by bebo. Ruby Chávez 11/19/2013 Fran Porter MD - 11/19/2013 3:24 PM PSTFormatting of this note might be different from the or iginal. Progress Notes by Fran Barnes MD at 11/19/131523 Author: Fran Barnes MD Service: Hospitalist Author Type: Physician Filed: 11/19/131535 Date of Service: 11/19/131523 Status: Addendum Chiropractic Assistant: Fran Barnes MD (Physician) Related Notes: Original Note by Fran Barnes MD (Physician) filed at 11/19/[address] [facility] Service: Hospitalist Progress Note Ronald Kowthrleighann 68 y.o. [id number] 306/306-2 female MIQUEL Suarez [facility] Day: LOS: 5 days Patient Summary: .A 68-year-old female with past medical history of depression with m ultiple suicide attempts in the past, history of COPD, which she attributes to paint inhalat ion, history of anxiety, restless leg syndrome, GERD, diabetes mellitus type 2, diet control led, hypothyroidism, who was admitted to [facility] on the November 14, when the patient was found to be unresponsive by EMS and thought to be secondary to Fle xeril overdose and alcohol intoxication as her alcohol level was more than 300. The patient was found to be hypertensive, hence she was intubated and brought to the [facility] where she was put on dopamine, norepinephrine, [...] by PCR (TAT 3 hr in house) [[id number]] Collected:11/19/13 0703 Specimen Information:Stool / Stool Updated:11/19/13806 Toxigenic C Difficile NEGATIVE 027 NAP1 BI 027 NAP1 BI PRESUMPTIVE NEGATIVE Magnesium [[id number]] Collected:11/19/13424 MAGNESIUM 2.2 mg/dL Updated:11/19/13806 Phosphorus [[id number]] Collected:11/19/13424 PHOSPHORUS 4.0 mg/dL Updated:11/19/13806 Basic metabolic panel [[id number]] (Abnormal) Collected:11/19/13424 Specimen Information:Blood Updated:11/19/13 0544 SODIUM 133 (L) mmol/L POTASSIUM 3.9 mmol/L CHLORIDE 101 mmol/L CO2 24 mmol/L ANION GAP AGAP 12 mmol/L GLUCOSE 108 (H) mg/dL BUN 12 mg/dL CREATININE 0.80 mg/dL BUN/CREAT 15 CALCIUM 9.2 mg/dL EGFR >60 mL/min/1.73m2 CBC w/auto diff (reflex to manual) [[id number]] (Abnormal) Collected:11/19/13 0425 Specimen Information:Blood Updated:11/19/13 0540 [...] K/uL MORPHOLOGY Fecal occult blood (in house) [[id number]] Collected:11/19/13 0146 Specimen Information:Stool / Stool Updated:11/19/13 0217 Fecal Occult Blood NEGATIVE Urine culture [[id number]] Collected:11/17/13 1013 Specimen Information:Urine / Urine, Catheter Updated:11/18/13 1710 Specimen Description CATHETERIZED URINE Specimen Description Result: Testing performed at [facility];[address] [place] [address] CULTURE NO GROWTH CULTURE Result: Testing performed at [facility], [address] [place] [address] REPORT STATUS 11/18/2013 FINAL Blood culture, 1 of 2 [[id number]] Collected:11/17/13 1042 Specimen Information:Blood / Blood Updated:11/18/13 1451 Specimen Description BLOOD Specimen Description Result: Testing performed at [facility];[address] [place] [address] SPECIAL REQUESTS Result: REPEAT TEST USING ALTERNATE ASSAYED CONTROL MATERIAL SPECIAL REQUESTS Result: Testing performed at [facility];[address] [place] [address] CULTURE NO GROWTH AT THIS TIME CULTURE Result: Testing performed at [facility], [address] [place] [address] REPORT STATUS PENDING Blood culture, 2 of 2 [[id number]] Collected:11/17/13 1050 Specimen Information:Blood / Blood Updated:11/18/13 1451 Specimen Description BLOOD Specimen Description Result: Testing performed at [facility];[address] [place] [address] SPECIAL REQUESTS PICC LINE SPECIAL REQUESTS Result: Testing performed at [facility];[address] [place] [address] CULTURE NO GROWTH AT THIS TIME CULTURE Result: Testing performed at [facility], [address] [place] [address] REPORT STATUS PENDING Sputum culture [[id number]] Collected:11/17/13 1153 Specimen Information:Sputum / Sputum Updated:11/18/13 1428 Specimen Description SPUTUM Specimen Description Result: Testing performed at [facility];[address] [place] [address] GRAM STAIN GREATER THAN 10 WBCS/LPF GRAM STAIN LESS THAN 10 SEC/LPF GRAM STAIN NO ORGANISMS SEEN GRAM STAIN Result: Testing performed at [facility], [address] [place] [address] CULTURE 1+ NORMAL UPPER RESPIRATORY CURTIS CULTURE Result: Testing performed at [facility], [address] [place] [address] REPORT STATUS PENDING Magnesium [[id number]] Collected:11/18/13 0600 Specimen Information:Blood Updated:11/18/13 1104 MAGNESIUM 2.1 mg/dL Phosphorus [[id number]] Collected:11/18/13 0600 Specimen Information:Blood Updated:11/18/13 1104 PHOSPHORUS 3.8 mg/dL Basic metabolic panel [[id number]] (Abnormal) Collected:11/18/13 0600 Specimen Information:Blood Updated:11/18/13 0716 SODIUM 135 mmol/L POTASSIUM 4.2 mmol/L CHLORIDE 104 mmol/L CO2 24 mmol/L ANION GAP AGAP 11 mmol/L GLUCOSE 110 (H) mg/dL BUN 11 mg/dL CREATININE 0.73 mg/dL BUN/CREAT 15 CALCIUM 9.0 mg/dL EGFR >60 mL/min/1.73m2 TSH [[id number]] Collected:11/18/13 0600 Specimen Information:Blood Updated:11/18/13 0713 TSH 4.28 uIU/mL CBC w/auto diff (reflex to manual) [[id number]] (Abnormal) Collected:11/18/13 0600 Specimen Information:Blood Updated:11/18/13 0647 [...] K/uL BASOPHILS ABS 0.0 K/uL Urine culture [[id number]] Collected:11/16/13 0951 Specimen Information:Urine / Urine, Clean Catch Updated:11/17/13 1618 Specimen Description CLEAN CATCH URINE Specimen Description Result: Testing performed at [address] [address] CULTURE NO GROWTH CULTURE Result: Testing performed at [facility], [address] [place] [address] REPORT STATUS 11/17/2013 FINAL Magnesium [[id number]] (Abnormal) Collected:11/16/13 0407 Specimen Information:Blood Updated:11/17/13 1141 MAGNESIUM 1.6 (L) mg/dL Phosphorus [[id number]] (Abnormal) Collected:11/16/13 0407 Specimen Information:Blood Updated:11/17/13 1141 PHOSPHORUS 1.7 (L) mg/dL Iron panel [[id number]] (Abnormal) Collected:11/17/1357 Specimen Information:Blood Updated:11/17/1318 IRON 31 ug/dL TIBC 155 (L) ug/dL IRON % SAT 20 % Vitamin B12 [[id number]] Collected:11/17/1357 Specimen Information:Blood Updated:11/17/1311 VITAMIN B12 417 pg/mL Folate [[id number]] Collected:11/17/1357 Specimen Information:Blood Updated:11/17/13710 FOLATE 17.7 ng/mL Ferritin [[id number]] Collected:11/17/13556 Specimen Information:Blood Updated:11/17/13 0711 FERRITIN 140 ng/mL Comprehensive metabolic panel [[id number]] (Abnormal) Collected:11/17/13 0557 Specimen Information:Blood Updated:11/17/13 0710 [...] mL/min/1.73m2 CBC w/auto diff (reflex to manual) [[id number]] (Abnormal) Collected:11/17/1357 Specimen Information:Blood Updated:11/17/13 0641 WBC [...] Case Management by ANGELO Lujan at 11/19/13 7084 Author: ANGELO Lujan Service: (none) Author Type: Dandy Tender Filed: 11/19/13 7860 Date of Service: 11/19/13 5734 Status: Signed Chiropractic Assistant: ANGELO Lujan (Dandy Tender) CM contacted Crisis Response Unit to inform [facility] that pt is now medically clear for MH eval uation. A DMHP will see pt in the hospital today for eval. CM spoke with IPR MD - he would like to reevaluate pt tomorrow to determine appropriateness for IPR. ANGELO Lujan Compliance Paralegal onver hiren Transaction, Provider Unknown - 11/19/2013 12:40 PM PST Progress Notes by Emi Donaldson PT at 11/19/13 1240 Author: Emi Donaldson PT Service: (none) Author Type: Physical Therapist Filed: 11/19/13 1313 Date of Service: 11/19/13 1240 Status: Signed Chiropractic Assistant: Emi Donaldson PT (Physical Therapist) 11/19/13 1240 [...] and I have a bladder appointment at [facility] I need to take care of otherwise [...] Date of Service: 11/19/13 1020 Status: Signed Chiropractic Assistant: Emi Donaldson PT (Physical Therapist) 11/19/13 1020 PT Last Visit PT Received On 11/19/13 Requires PT Follow Up Unavailable (getting bed bath, f/u later today for PT as schedule allows) onver hiren Transaction, Provider Unknown - 11/19/2013 4:29 AM PST Nurse Progress Note by Kala Peña RN at 11/19/13 9549 Author: Kala Peña RN Service: (none) Author Type: Registered Nurse Filed: 11/19/13 9533 Date of Service: 11/19/13 0429 Status: Signed Chiropractic Assistant: Kala Peña, RN (Registered Nurse) Pt slept [...] 11/18/131826 Date of Service: 11/18/131807 Status: Signed Chiropractic Assistant: Fran Barnes MD (Physician) [facility] Service: Hospitalist Progress Note Ronald Kowtjanene 68 y.o. [id number] 306/306-2 female [facility] Day: LOS: 4 days Patient Summary: .A 68-year-old female with past medical history of depression with m ultiple suicide attempts in the past, history of COPD, which she attributes to paint inhalat ion, history of anxiety, restless leg syndrome, GERD, diabetes mellitus type 2, diet control led, hypothyroidism, who was admitted to [facility] on the November 14, when the patient was found to be unresponsive by EMS and thought to be secondary to Fle xeril overdose and alcohol intoxication as her alcohol level was more than 300. The patient was found to be hypertensive, hence she was intubated and brought to the [facility] where she was put on dopamine, norepinephrine, [...] mood is better after she talked with Sheet Tailer ,denied any suicidal ideation /thoughts at this moment . Patient c/o generalized weakness and evaluated by PT who recommended SNF and [facility] [place]. She denied any chest pain, cough,sob ,no [...] Procedure Component Value Units Date/Time Urine culture [[id number]] Collected:11/17/13 1013 Specimen Information:Urine / Urine, Catheter Updated:11/18/13 1710 Specimen Description CATHETERIZED URINE Specimen Description Result: Testing performed at [facility];[address] [facility] [address] CULTURE NO GROWTH CULTURE Result: Testing performed at [facility], [address] [place] [address] REPORT STATUS 11/18/2013 FINAL Blood culture, 1 of 2 [[id number]] Collected:11/17/13 1042 Specimen Information:Blood / Blood Updated:11/18/13 1451 Specimen Description BLOOD Specimen Description Result: Testing performed at [facility];[place] [address] SPECIAL REQUESTS Result: REPEAT TEST USING ALTERNATE ASSAYED CONTROL MATERIAL SPECIAL REQUESTS Result: Testing performed at [facility];[address] [place] [address];[place] [address] CULTURE NO GROWTH AT THIS TIME CULTURE Result: Testing performed at [facility], [address] [place] [address] REPORT STATUS PENDING Blood culture, 2 of 2 [[id number]] Collected:11/17/13 1050 Specimen Information:Blood / Blood Updated:11/18/13 1451 Specimen Description BLOOD Specimen Description Result: Testing performed at [facility];[place] [address] SPECIAL REQUESTS PICC LINE SPECIAL REQUESTS Result: Testing performed at [facility];[address] [facility];[place] [address] CULTURE NO GROWTH AT THIS TIME CULTURE Result: Testing performed at [facility], [address] [place] [address] REPORT STATUS PENDING Sputum culture [[id number]] Collected:11/17/13 1153 Specimen Information:Sputum / Sputum Updated:11/18/13 1428 Specimen Description SPUTUM Specimen Description Result: Testing performed at [facility];[address] [place] [address] GRAM STAIN GREATER THAN 10 WBCS/LPF GRAM STAIN LESS THAN 10 SEC/LPF GRAM STAIN NO ORGANISMS SEEN GRAM STAIN Result: Testing performed at [facility], [address] [place] [address] CULTURE 1+ NORMAL UPPER RESPIRATORY CURTIS CULTURE Result: Testing performed at [facility], [address] [place] [address] REPORT STATUS PENDING Magnesium [[id number]] Collected:11/18/13 0600 Specimen Information:Blood Updated:11/18/13 1104 MAGNESIUM 2.1 mg/dL Phosphorus [[id number]] Collected:11/18/13 0600 Specimen Information:Blood Updated:11/18/13 1104 PHOSPHORUS 3.8 mg/dL Basic metabolic panel [[id number]] (Abnormal) Collected:11/18/13 0600 Specimen Information:Blood Updated:11/18/13 0716 SODIUM 135 mmol/L POTASSIUM 4.2 mmol/L CHLORIDE 104 mmol/L CO2 24 mmol/L ANION GAP AGAP 11 mmol/L GLUCOSE 110 (H) mg/dL BUN 11 mg/dL CREATININE 0.73 mg/dL BUN/CREAT 15 CALCIUM 9.0 mg/dL EGFR >60 mL/min/1.73m2 TSH [[id number]] Collected:11/18/13 06 Specimen Information:Blood Updated:11/18/13 0713 TSH 4.28 uIU/mL CBC w/auto diff (reflex to manual) [[id number]] (Abnormal) Collected:11/18/13 06 Specimen Information:Blood Updated:11/18/13 0647 [...] K/uL BASOPHILS ABS 0.0 K/uL Urine culture [[id number]] Collected:11/16/13 0951 Specimen Information:Urine / Urine, Clean Catch Updated:11/17/13 1618 Specimen Description CLEAN CATCH URINE Specimen Description Result: Testing performed at [facility];[address] [place] [address] CULTURE NO GROWTH CULTURE Result: Testing performed at [facility], [address] [place] [address] REPORT STATUS 11/17/2013 FINAL Magnesium [[id number]] (Abnormal) Collected:11/16/13 0407 Specimen Information:Blood Updated:11/17/13 1141 MAGNESIUM 1.6 (L) mg/dL Phosphorus [[id number]] (Abnormal) Collected:11/16/13 0407 Specimen Information:Blood Updated:11/17/13 1141 PHOSPHORUS 1.7 (L) mg/dL Iron panel [[id number]] (Abnormal) Collected:11/17/13556 Specimen Information:Blood Updated:11/17/1318 IRON 31 ug/dL TIBC 155 (L) ug/dL IRON % SAT 20 % Vitamin B12 [[id number]] Collected:11/17/13556 Specimen Information:Blood Updated:11/17/1311 VITAMIN B12 417 pg/mL Folate [[id number]] Collected:11/17/13556 Specimen Information:Blood Updated:11/17/13710 FOLATE 17.7 ng/mL Ferritin [[id number]] Collected:11/17/13556 Specimen Information:Blood Updated:11/17/1311 FERRITIN 140 ng/mL Comprehensive metabolic panel [[id number]] (Abnormal) Collected:11/17/13556 Specimen Information:Blood Updated:11/17/13709 SODIUM 134 [...] mL/min/1.73m2 CBC w/auto diff (reflex to manual) [[id number]] (Abnormal) Collected:11/17/13556 Specimen Information:Blood Updated:11/17/13640 WBC 7.8 [...] K/uL BASOPHILS ABS 0.0 K/uL MORPHOLOGY Potassium [[id number]] Collected:11/16/13 1112 Specimen Information:Blood Updated:11/16/13 1133 POTASSIUM 3.6 mmol/L Sputum culture [[id number]] Collected:11/14/13 2055 Specimen Information:Sputum / Tracheal Aspirate Updated:11/16/13 1018 Specimen Description TRACHEAL ASPIRATE Specimen Description Result: Testing performed at [facility];[address] [place] [address];[place] [address] GRAM STAIN GREATER THAN 10 WBCS/LPF GRAM STAIN LESS THAN 10 SEC/LPF GRAM STAIN 2+ GRAM POSITIVE COCCI GRAM STAIN 1+ GRAM POSITIVE RODS GRAM STAIN Result: Testing performed at [address] [address] CULTURE 2+ NORMAL UPPER RESPIRATORY CURTIS CULTURE Result: Testing performed at [facility], [address] [place] [address] REPORT STATUS 11/16/2013 FINAL Acetaminophen level [[id number]] (Abnormal) Collected:11/16/13 0755 Specimen Information:Blood Updated:11/16/13 0828 ACETAMINOPHEN 3.7 (L) ug/mL CBC w/auto diff (reflex to manual) [[id number]] (Abnormal) Collected:11/16/13 0407 Specimen Information:Blood Updated:11/16/13 0503 [...] BASOPHILS ABS 0.0 K/uL Basic metabolic panel [[id number]] (Abnormal) Collected:11/16/13406 Specimen Information:Blood Updated:11/16/13439 SODIUM 143 mmol/L POTASSIUM 3.1 (L) mmol/L CHLORIDE 109 mmol/L CO2 27 mmol/L ANION GAP AGAP 10 mmol/L GLUCOSE 78 mg/dL BUN 7 (L) mg/dL CREATININE 0.77 mg/dL BUN/CREAT 9 CALCIUM 7.8 (L) mg/dL EGFR >60 mL/min/1.73m2 Acetaminophen level [[id number]] (Abnormal) Collected:11/16/13406 Specimen Information:Blood Updated:11/16/13439 ACETAMINOPHEN 4.5 (L) ug/mL Acetaminophen level [[id number]] (Abnormal) Collected:11/16/136 Specimen Information:Blood Updated:11/16/138 ACETAMINOPHEN 5.2 [...] (none) Author Type: Registered Nurse Filed: 11/18/13 1686 Date of Service: 11/18/131805 Status: Signed Chiropractic Assistant: Donita Hunter RN (Registered Nurse) facepiece line supervisor at bedside, pt seeming uplifted by conversation with cigar head puncher. PCC in and asked t hat this RN not remove cords, call-light cord and other items nearby pt as cryptologic technician technical had con tacted her regarding this RN's discussion that per policy and patients statements indicating that she intended to cause her self harm this RN felt it would be best to move items that s he could use to harm herself away from her after she finished speaking with the cigar head puncher. Th is RN has increased rounding, line of site at RN station and cryptologic technician technical continues to be in pl suk[place]. Pt overall mood continue to be melancholy and tearful, but has not threatened to do chapito f harm since her discussion with the cigar head puncher. Pt encouraged to express her emotions to staf f. Pt complains of diffuse pain, and desire to go to [place]. Pt medicated for pain per DEC. Wi ll continue to monitor closely.DONITA HUNTER RN onver hiren Transaction, Provider Unknown - 11/18/2013 2:59 PM PST Progress Notes by Franky Mcclain at 11/18/13 6359 Author: Franky Mcclain Service: (none) Author Type: Doweling Machine Operator Filed: 11/18/13 1051 Date of Service: 11/18/13 0721 Status: Signed Chiropractic Assistant: Franky Mcclain (Doweling Machine Operator) Received pt's request via RN for [...] but now belongs to the "12 step yazidi" and the [facility] prayer to cope. She states that she's [...] Date of Service: 11/18/13 1208 Status: Signed Chiropractic Assistant: Donita Hunter RN (Registered Nurse) Doweling Machine Operator called to be with patient,, cryptologic technician technical at bedside. Pt indicating desire to harm [...] 0615 Date of Service: 11/18/13612 Status: Signed Chiropractic Assistant: Kala Peña RN (Registered Nurse) Pt slept [...] 11/17/135 Date of Service: 11/17/131823 Status: Signed Chiropractic Assistant: Dick De Santiago RN (Registered Nurse) Pt [...] Date of Service: 11/17/13 1341 Status: Signed Chiropractic Assistant: Sharif Romero (Doweling Machine Operator) I visited with Pt to assess [...] Date of Service: 11/17/13 113 Status: Signed Chiropractic Assistant: Emi Donaldson PT (Physical Therapist) 11/17/13 1133 [...] Notes by Emi Donaldson PT at 11/17/13 7414 Author: Emi Donaldson PT Service: (none) Author Type: Physical Therapist Filed: 11/17/13 4994 Date of Service: 11/17/13 1133 Status: Signed Chiropractic Assistant: Emi Donaldson PT (Physical Therapist) 11/17/13 1133 [...] Recommendations SNF Equipment Recommended (pending improvement, lift world language teacher c/s) Prior Function Level of [place] Modified independent with functional mobility;Modified independent wi [...] Date of Service: 11/17/13 1002 Status: Signed Chiropractic Assistant: Fran Barnes MD (Physician) Related Notes: Original Note by Fran Barnes MD (Physician) filed at 11/17/[address] [facility] Service: Hospitalist Progress Note Ronald Kowthrleighann 68 y.o. [phone] 306/306-2 female [facility] Hospital Day: LOS: 3 days Patient Summary: .A 68-year-old female with past medical history of depression with m ultiple suicide attempts in the past, history of COPD, which she attributes to paint inhalat ion, history of anxiety, restless leg syndrome, GERD, diabetes mellitus type 2, diet control led, hypothyroidism, who was admitted to [facility] on the November 14 014, when the patient was found to be unresponsive by EMS and thought to be secondary to Fle xeril overdose and alcohol intoxication as her alcohol level was more than 300. The patient was found to be hypertensive, hence she was intubated and brought to the [facility] where she was put on dopamine, norepinephrine, [...] commands . I received her records from [facility]. The patient's 2 sons live in [place], and she does not know the phone [...] Procedure Component Value Units Date/Time Iron panel [[id number]] (Abnormal) Collected:11/17/13556 Specimen Information:Blood Updated:11/17/13717 IRON 31 ug/dL TIBC 155 (L) ug/dL IRON % SAT 20 % Vitamin B12 [[id number]] Collected:11/17/13556 Specimen Information:Blood Updated:11/17/13710 VITAMIN B12 417 pg/mL Folate [[id number]] Collected:11/17/13556 Specimen Information:Blood Updated:11/17/13710 FOLATE 17.7 ng/mL Ferritin [[id number]] Collected:11/17/13556 Specimen Information:Blood Updated:11/17/13710 FERRITIN 140 ng/mL Comprehensive metabolic panel [[id number]] (Abnormal) Collected:11/17/13556 Specimen Information:Blood Updated:11/17/13709 SODIUM 134 [...] mL/min/1.73m2 CBC w/auto diff (reflex to manual) [[id number]] (Abnormal) Collected:11/17/13556 Specimen Information:Blood Updated:11/17/13 06 WBC [...] BASOPHILS ABS 0.0 K/uL MORPHOLOGY Urine culture [[id number]] Collected:11/16/13 0951 Specimen Information:Urine / Urine, Clean Catch Updated:11/16/13 1144 Potassium [[id number]] Collected:11/16/13 1112 Specimen Information:Blood Updated:11/16/13 1133 POTASSIUM 3.6 mmol/L Sputum culture [[id number]] Collected:11/14/13 2055 Specimen Information:Sputum / Tracheal Aspirate Updated:11/16/13 1018 Specimen Description TRACHEAL ASPIRATE Specimen Description Result: Testing performed at [facility];[address] [place] [address];[place] [address] GRAM STAIN GREATER THAN 10 WBCS/LPF GRAM STAIN LESS THAN 10 SEC/LPF GRAM STAIN 2+ GRAM POSITIVE COCCI GRAM STAIN 1+ GRAM POSITIVE RODS GRAM STAIN Result: Testing performed at [address] [address] CULTURE 2+ NORMAL UPPER RESPIRATORY CURTIS CULTURE Result: Testing performed at [facility], [address] [place] [address] REPORT STATUS 11/16/2013 FINAL Acetaminophen level [[id number]] (Abnormal) Collected:11/16/13 0755 Specimen Information:Blood Updated:11/16/13 0828 ACETAMINOPHEN 3.7 (L) ug/mL Magnesium [[id number]] Collected:11/16/13 0407 Specimen Information:Blood Updated:11/16/13 0800 Phosphorus [[id number]] Collected:11/16/13 0407 Specimen Information:Blood Updated:11/16/13 0800 CBC w/auto diff (reflex to manual) [[id number]] (Abnormal) Collected:11/16/13 0407 Specimen Information:Blood Updated:11/16/13 0503 [...] BASOPHILS ABS 0.0 K/uL Basic metabolic panel [[id number]] (Abnormal) Collected:11/16/13 0407 Specimen Information:Blood Updated:11/16/13 0440 SODIUM 143 mmol/L POTASSIUM 3.1 (L) mmol/L CHLORIDE 109 mmol/L CO2 27 mmol/L ANION GAP AGAP 10 mmol/L GLUCOSE 78 mg/dL BUN 7 (L) mg/dL CREATININE 0.77 mg/dL BUN/CREAT 9 CALCIUM 7.8 (L) mg/dL EGFR >60 mL/min/1.73m2 Acetaminophen level [[id number]] (Abnormal) Collected:11/16/13 0407 Specimen Information:Blood Updated:11/16/13 0440 ACETAMINOPHEN 4.5 (L) ug/mL Acetaminophen level [[id number]] (Abnormal) Collected:11/16/13 0036 Specimen Information:Blood Updated:11/16/13 0058 ACETAMINOPHEN 5.2 (L) ug/mL Troponin I [[id number]] (Abnormal) Collected:11/15/13 1602 Specimen Information:Blood Updated:11/15/13 1651 TROPONIN I 0.208 (H) ng/mL CK MB [[id number]] Collected:11/15/13 1602 MMB 3.4 ng/mL Updated:11/15/13 1651 CK-MB Index 2.4 CPK [[id number]] Collected:11/15/13 1602 Specimen Information:Blood Updated:11/15/13 1651 CPK 140 U/L Acetaminophen level [[id number]] Collected:11/15/13 1602 Specimen Information:Blood Updated:11/15/13 1651 ACETAMINOPHEN 10.0 ug/mL POCT glucose [[id number]] (Abnormal) Collected:11/14/13 1920 GLUCOSE,POC SCREEN 154 (H) mg/dL Updated:11/15/13 1317 Acetaminophen level [[id number]] (Abnormal) Collected:11/15/13 1132 Specimen Information:Blood Updated:11/15/13 1207 ACETAMINOPHEN 5.5 (L) ug/mL Basic metabolic panel [[id number]] (Abnormal) Collected:11/15/13 1132 Specimen Information:Blood Updated:11/15/13 1207 SODIUM 144 (H) mmol/L POTASSIUM 3.9 mmol/L CHLORIDE 114 (H) mmol/L CO2 20 (L) mmol/L ANION GAP AGAP 14 mmol/L GLUCOSE 153 (H) mg/dL BUN 8 mg/dL CREATININE 0.92 mg/dL BUN/CREAT 9 CALCIUM 7.4 (L) mg/dL EGFR >60 mL/min/1.73m2 CPK [[id number]] Collected:11/15/13850 Specimen Information:Blood Updated:11/15/1325 CPK 75 U/L Troponin I [[id number]] (Abnormal) Collected:11/15/13850 Specimen Information:Blood Updated:11/15/1325 TROPONIN I 0.325 (H) ng/mL CK MB [[id number]] Collected:11/15/13850 MMB 3.4 ng/mL Updated:11/15/13 0925 CK-MB Index 4.5 Acetaminophen level [[id number]] (Abnormal) Collected:11/15/13850 Specimen Information:Blood Updated:11/15/13 0925 ACETAMINOPHEN 6.3 (L) ug/mL POCT glucose [[id number]] Collected:11/15/13 0033 GLUCOSE,POC SCREEN 86 mg/dL Updated:11/15/13 0759 Osmolality [[id number]] (Abnormal) Collected:11/15/13 0408 Specimen Information:Blood Updated:11/15/13 0701 OSMOLALITY,SERUM 316 (H) mOsm/kg Lactic acid, plasma [[id number]] (Abnormal) Collected:11/15/13 0532 Specimen Information:Blood Updated:11/15/13 0617 LACTIC ACID 2.5 (H) mmol/L CBC w/auto diff (reflex to manual) [[id number]] (Abnormal) Collected:11/15/138 Specimen Information:Blood Updated:11/15/13 0530 WBC [...] BASOPHILS ABS 0.0 K/uL MORPHOLOGY Troponin I [[id number]] (Abnormal) Collected:11/15/13407 Specimen Information:Blood Updated:11/15/13522 TROPONIN I 0.647 (HH) ng/mL CK MB [[id number]] Collected:11/15/13407 MMB 3.3 ng/mL Updated:11/15/13522 CK-MB Index 5.9 CPK [[id number]] Collected:11/15/13407 Specimen Information:Blood Updated:11/15/13521 CPK 56 U/L Comprehensive metabolic panel [[id number]] (Abnormal) Collected:11/15/13407 Specimen Information:Blood Updated:11/15/13521 SODIUM 148 [...] 61 U/L EGFR >60 mL/min/1.73m2 Acetaminophen level [[id number]] (Abnormal) Collected:11/15/13407 Specimen Information:Blood Updated:11/15/13521 ACETAMINOPHEN 9.9 (L) ug/mL POC arterial CG4+ [[id number]] (Abnormal) Collected:11/14/13 2347 pH, Art 7.141 (LL) Updated:11/14/13 2351 POC PCO2 40 mmHg POC p02 283 (H) mmHg POC LACTATE 3.7 (H) mmol/L POC HCO3 14 (L) mmol/L POC TCO2 15 (L) mEq/L POC BASE DEFICIT 15 (H) mmol/L POC S02 100 (H) % POC FIO2 70 % POC COMMENTS Tidal Volume = 500 Lactic acid, plasma [[id number]] (Abnormal) Collected:11/14/132116 Specimen Information:Blood Updated:11/14/132155 LACTIC ACID 3.4 (H) mmol/L Basic metabolic panel [[id number]] (Abnormal) Collected:11/14/132112 Specimen Information:Blood Updated:11/14/132149 SODIUM 143 mmol/L POTASSIUM 3.0 (L) mmol/L CHLORIDE 114 (H) mmol/L CO2 16 (L) mmol/L ANION GAP AGAP 16 mmol/L GLUCOSE 187 (H) mg/dL BUN 10 mg/dL CREATININE 0.79 mg/dL BUN/CREAT 13 CALCIUM 6.5 (L) mg/dL EGFR >60 mL/min/1.73m2 Phosphorus [[id number]] Collected:11/14/132112 Specimen Information:Blood Updated:11/14/132149 PHOSPHORUS 2.4 mg/dL Magnesium [[id number]] Collected:11/14/132112 Specimen Information:Blood Updated:11/14/132149 MAGNESIUM 1.7 mg/dL Hepatic function panel [[id number]] (Abnormal) Collected:11/14/132112 TOTAL PROTEIN 5.6 (L) g/dL Updated:11/14/132149 Albumin 3.1 (L) g/dL TBIL 0.2 mg/dL BILI, DIRECT <0.1 mg/dL ALK PHOS 76 U/L AST 75 (H) U/L ALT 67 (H) U/L Acetaminophen level [[id number]] (Abnormal) Collected:11/14/132112 Specimen Information:Blood Updated:11/14/132149 ACETAMINOPHEN 44.4 (H) ug/mL Ionized calcium,to [facility] [[id number]] (Abnormal) Collected:11/14/132114 Specimen Information:Blood Updated:11/14/132145 CA++ 0.99 (L) mmol/L pH 7.179 (L) aPTT [[id number]] Collected:11/14/132112 Specimen Information:Blood Updated:11/14/132144 APTT 26 seconds Protime-INR [[id number]] Collected:11/14/132112 Specimen Information:Blood Updated:11/14/132144 INR 1.0 MRSA by PCR [[id number]] Collected:11/14/131929 Specimen Information:Nasopharyngeal / Nasopharyngeal Culture Updated:11/14/132130 SOURCE NARES(NOSE) RESULT NEGATIVE CBC w/auto diff (reflex to manual) [[id number]] (Abnormal) Collected:11/14/132112 Specimen Information:Blood Updated:11/14/132130 WBC 12.2 [...] ABS 0.0 K/uL Rapid drug screen, urine [[id number]] (Abnormal) Collected:11/14/131929 Specimen Information:Urine / Urine, Catheter Updated:11/14/132036 THC NEGATIVE PCP NEGATIVE COCAINE NEGATIVE METHAMPHETAMINES NEGATIVE OPIATES PRESUMPTIVE POSITIVE (A) AMPHETAMINE NEGATIVE BENZODIAZEPINE NEGATIVE TRICYCLIC ANTIDEPRESS PRESUMPTIVE POSITIVE (A) METHADONE NEGATIVE BARBITUATES NEGATIVE Urine microscopic only [[id number]] (Abnormal) Collected:11/14/131929 WBC 1-5 /hpf Updated:11/14/132035 RBC 0-2 /hpf EPITHELIAL NONE SEEN /lpf BACTERIA TRACE (A) Urinalysis (reflex to micro) [[id number]] (Abnormal) Collected:11/14/131929 Specimen Information:Urine / Urine, Catheter Updated:11/14/132035 COLOR UA OTHER CLARITY CLEAR Specific [place], UA 1.004 LEUKOCYTE ESTERASE TRACE (A) NITRITE [...] to patient,doing exam and revising records from [facility]. FRAN BARNES MD 11/17/2013 onversion Transactio n, Provider Unknown - 11/17/2013 4:27 AM PST Nurse Progress Note by Jazzy Patel RN at 11/17/137 Author: Jazzy Patel RN Service: (none) Author Type: Registered Nurse Filed: 11/17/13 0429 Date of Service: 11/17/13426 Status: Signed Chiropractic Assistant: Jazzy Patel RN (Registered Nurse) Pt currently sleeping. 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 Unable to score CIWA a s patient [...] Notes by Fran Barnes MD at 11/16/13 0277 Author: Fran Barnes MD Service: Hospitalist Author Type: Physician Filed: 11/17/13 1746 Date of Service: 11/16/13 7030 Status: Signed Chiropractic Assistant: Fran Barnes MD (Physician) Related Notes: Original Note by Fran Barnes MD (Physician) filed at 11/16/[address] [facility] Service: Hospitalist Progress Note Ronald Castañeda 68 y.o. [id number] female MIQUEL Suarez [facility] Day: LOS: 2 days Patient Summary: A 68-year-old female with past medical history of depression and his tory of suicidal attempts, COPD per patient but there is no documentation of it, who took an overdose of Flexeril and EMS found her in the bathtub with clothes on, and the patient was taken to [facility] ER where she was found to be unresponsive and hypertensive, an d was intubated and sent to [facility] for further workup and treatment. The patient [...] as tricyclic positive. She was put on CIDC protocol for alcohol withdrawal. Today when I [...] atient told that she lives alone in [place]. She [facility]. She [...] Procedure Component Value Units Date/Time Urine culture [[id number]] Collected:11/16/13 0951 Specimen Information:Urine / Urine, Clean Catch Updated:11/16/13 1144 Potassium [[id number]] Collected:11/16/13 1112 Specimen Information:Blood Updated:11/16/13 1133 POTASSIUM 3.6 mmol/L Sputum culture [[id number]] Collected:11/14/13 2055 Specimen Information:Sputum / Tracheal Aspirate Updated:11/16/13 1018 Specimen Description TRACHEAL ASPIRATE Specimen Description Result: Testing performed at [facility];[address] [place] [address];[place] [address] GRAM STAIN GREATER THAN 10 WBCS/LPF GRAM STAIN LESS THAN 10 SEC/LPF GRAM STAIN 2+ GRAM POSITIVE COCCI GRAM STAIN 1+ GRAM POSITIVE RODS GRAM STAIN Result: Testing performed at [facility], [address] [place] [address] CULTURE 2+ NORMAL UPPER RESPIRATORY CURTIS CULTURE Result: Testing performed at [facility], [address] [place] [address] REPORT STATUS 11/16/2013 FINAL Acetaminophen level [[id number]] (Abnormal) Collected:11/16/13 0755 Specimen Information:Blood Updated:11/16/13 0828 ACETAMINOPHEN 3.7 (L) ug/mL Magnesium [[id number]] Collected:11/16/13406 Specimen Information:Blood Updated:11/16/13 0800 Phosphorus [[id number]] Collected:11/16/13406 Specimen Information:Blood Updated:11/16/13 0800 CBC w/auto diff (reflex to manual) [[id number]] (Abnormal) Collected:11/16/13406 Specimen Information:Blood Updated:11/16/13 0503 WBC [...] BASOPHILS ABS 0.0 K/uL Basic metabolic panel [[id number]] (Abnormal) Collected:11/16/13406 Specimen Information:Blood Updated:11/16/13 044 SODIUM 143 mmol/L POTASSIUM 3.1 (L) mmol/L CHLORIDE 109 mmol/L CO2 27 mmol/L ANION GAP AGAP 10 mmol/L GLUCOSE 78 mg/dL BUN 7 (L) mg/dL CREATININE 0.77 mg/dL BUN/CREAT 9 CALCIUM 7.8 (L) mg/dL EGFR >60 mL/min/1.73m2 Acetaminophen level [[id number]] (Abnormal) Collected:11/16/13406 Specimen Information:Blood Updated:11/16/13 0440 ACETAMINOPHEN 4.5 (L) ug/mL Acetaminophen level [[id number]] (Abnormal) Collected:11/16/13 0036 Specimen Information:Blood Updated:11/16/13 0058 ACETAMINOPHEN 5.2 (L) ug/mL Troponin I [[id number]] (Abnormal) Collected:11/15/13 1602 Specimen Information:Blood Updated:11/15/13 1651 TROPONIN I 0.208 (H) ng/mL CK MB [[id number]] Collected:11/15/13 1602 MMB 3.4 ng/mL Updated:11/15/13 165 CK-MB Index 2.4 CPK [[id number]] Collected:11/15/13 160 Specimen Information:Blood Updated:11/15/13 1651 CPK 140 U/L Acetaminophen level [[id number]] Collected:11/15/13 160 Specimen Information:Blood Updated:11/15/13 1651 ACETAMINOPHEN 10.0 ug/mL POCT glucose [[id number]] (Abnormal) Collected:11/14/13 1920 GLUCOSE,POC SCREEN 154 (H) mg/dL Updated:11/15/13 1317 Acetaminophen level [[id number]] (Abnormal) Collected:11/15/13 1132 Specimen Information:Blood Updated:11/15/13 1207 ACETAMINOPHEN 5.5 (L) ug/mL Basic metabolic panel [[id number]] (Abnormal) Collected:11/15/13 1132 Specimen Information:Blood Updated:11/15/13 1207 SODIUM 144 (H) mmol/L POTASSIUM 3.9 mmol/L CHLORIDE 114 (H) mmol/L CO2 20 (L) mmol/L ANION GAP AGAP 14 mmol/L GLUCOSE 153 (H) mg/dL BUN 8 mg/dL CREATININE 0.92 mg/dL BUN/CREAT 9 CALCIUM 7.4 (L) mg/dL EGFR >60 mL/min/1.73m2 CPK [[id number]] Collected:11/15/1351 Specimen Information:Blood Updated:11/15/13 0925 CPK 75 U/L Troponin I [[id number]] (Abnormal) Collected:11/15/13850 Specimen Information:Blood Updated:11/15/13 0925 TROPONIN I 0.325 (H) ng/mL CK MB [[id number]] Collected:11/15/13850 MMB 3.4 ng/mL Updated:11/15/13 0925 CK-MB Index 4.5 Acetaminophen level [[id number]] (Abnormal) Collected:11/15/13 0851 Specimen Information:Blood Updated:11/15/13 0925 ACETAMINOPHEN 6.3 (L) ug/mL POCT glucose [[id number]] Collected:11/15/13 0033 GLUCOSE,POC SCREEN 86 mg/dL Updated:11/15/13 0759 Osmolality [[id number]] (Abnormal) Collected:11/15/13407 Specimen Information:Blood Updated:11/15/13 0701 OSMOLALITY,SERUM 316 (H) mOsm/kg Lactic acid, plasma [[id number]] (Abnormal) Collected:11/15/13 0532 Specimen Information:Blood Updated:11/15/13 0617 LACTIC ACID 2.5 (H) mmol/L CBC w/auto diff (reflex to manual) [[id number]] (Abnormal) Collected:11/15/13407 Specimen Information:Blood Updated:11/15/13529 WBC 5.5 [...] BASOPHILS ABS 0.0 K/uL MORPHOLOGY Troponin I [[id number]] (Abnormal) Collected:11/15/13407 Specimen Information:Blood Updated:11/15/13522 TROPONIN I 0.647 (HH) ng/mL CK MB [[id number]] Collected:11/15/13407 MMB 3.3 ng/mL Updated:11/15/13522 CK-MB Index 5.9 CPK [[id number]] Collected:11/15/13407 Specimen Information:Blood Updated:11/15/13521 CPK 56 U/L Comprehensive metabolic panel [[id number]] (Abnormal) Collected:11/15/13407 Specimen Information:Blood Updated:11/15/13521 SODIUM 148 [...] 61 U/L EGFR >60 mL/min/1.73m2 Acetaminophen level [[id number]] (Abnormal) Collected:11/15/13 0408 Specimen Information:Blood Updated:11/15/13 0522 ACETAMINOPHEN 9.9 (L) ug/mL POC arterial CG4+ [[id number]] (Abnormal) Collected:11/14/132346 pH, Art 7.141 (LL) Updated:11/14/13 2351 POC PCO2 40 mmHg POC p02 283 (H) mmHg POC LACTATE 3.7 (H) mmol/L POC HCO3 14 (L) mmol/L POC TCO2 15 (L) mEq/L POC BASE DEFICIT 15 (H) mmol/L POC S02 100 (H) % POC FIO2 70 % POC COMMENTS Tidal Volume = 500 Lactic acid, plasma [[id number]] (Abnormal) Collected:11/14/132116 Specimen Information:Blood Updated:11/14/132155 LACTIC ACID 3.4 (H) mmol/L Basic metabolic panel [[id number]] (Abnormal) Collected:11/14/132112 Specimen Information:Blood Updated:11/14/132149 SODIUM 143 mmol/L POTASSIUM 3.0 (L) mmol/L CHLORIDE 114 (H) mmol/L CO2 16 (L) mmol/L ANION GAP AGAP 16 mmol/L GLUCOSE 187 (H) mg/dL BUN 10 mg/dL CREATININE 0.79 mg/dL BUN/CREAT 13 CALCIUM 6.5 (L) mg/dL EGFR >60 mL/min/1.73m2 Phosphorus [[id number]] Collected:11/14/132112 Specimen Information:Blood Updated:11/14/132149 PHOSPHORUS 2.4 mg/dL Magnesium [[id number]] Collected:11/14/132112 Specimen Information:Blood Updated:11/14/132149 MAGNESIUM 1.7 mg/dL Hepatic function panel [[id number]] (Abnormal) Collected:11/14/132112 TOTAL PROTEIN 5.6 (L) g/dL Updated:11/14/132149 Albumin 3.1 (L) g/dL TBIL 0.2 mg/dL BILI, DIRECT <0.1 mg/dL ALK PHOS 76 U/L AST 75 (H) U/L ALT 67 (H) U/L Acetaminophen level [[id number]] (Abnormal) Collected:11/14/132112 Specimen Information:Blood Updated:11/14/132149 ACETAMINOPHEN 44.4 (H) ug/mL Ionized calcium,to [facility] [[id number]] (Abnormal) Collected:11/14/132114 Specimen Information:Blood Updated:11/14/132145 CA++ 0.99 (L) mmol/L pH 7.179 (L) aPTT [[id number]] Collected:11/14/132112 Specimen Information:Blood Updated:11/14/132144 APTT 26 seconds Protime-INR [[id number]] Collected:11/14/132112 Specimen Information:Blood Updated:11/14/132144 INR 1.0 MRSA by PCR [[id number]] Collected:11/14/131929 Specimen Information:Nasopharyngeal / Nasopharyngeal Culture Updated:11/14/132130 SOURCE NARES(NOSE) RESULT NEGATIVE CBC w/auto diff (reflex to manual) [[id number]] (Abnormal) Collected:11/14/132112 Specimen Information:Blood Updated:11/14/132130 WBC 12.2 [...] ABS 0.0 K/uL Rapid drug screen, urine [[id number]] (Abnormal) Collected:11/14/131929 Specimen Information:Urine / Urine, Catheter Updated:11/14/132036 THC NEGATIVE PCP NEGATIVE COCAINE NEGATIVE METHAMPHETAMINES NEGATIVE OPIATES PRESUMPTIVE POSITIVE (A) AMPHETAMINE NEGATIVE BENZODIAZEPINE NEGATIVE TRICYCLIC ANTIDEPRESS PRESUMPTIVE POSITIVE (A) METHADONE NEGATIVE BARBITUATES NEGATIVE Urine microscopic only [[id number]] (Abnormal) Collected:11/14/131929 WBC 1-5 /hpf Updated:11/14/132035 RBC 0-2 /hpf EPITHELIAL NONE SEEN /lpf BACTERIA TRACE (A) Urinalysis (reflex to micro) [[id number]] (Abnormal) Collected:11/14/131929 Specimen Information:Urine / Urine, Catheter Updated:11/14/132035 COLOR UA OTHER CLARITY CLEAR Specific [place], UA 1.004 LEUKOCYTE ESTERASE TRACE (A) NITRITE [...] 1423 Date of Service: 11/16/131421 Status: Signed Chiropractic Assistant: Kassidy Perez RN (Registered Nurse) Pt beginning [...] Date of Service: 11/16/13 1140 Status: Signed Chiropractic Assistant: Jana Taylor Pt given to Kassidy MORAN on 3OP. Pt transferred via wheel chair. onver hiren Transaction, Provider Unknown - 11/16/2013 1:17 AM PST Nurse Progress Note by Sheryl Tomas RN at 11/16/13116 Author: Sheryl Tomas RN Service: (none) Author Type: Registered Nurse Filed: 11/16/13116 Date of Service: 11/16/13116 Status: Signed Chiropractic Assistant: Sheryl Tomas RN (Registered Nurse) Stopped Acetylcysteine drip per order. Sheryl Tomas RN iotr hesham Jana Osbornanne - 11/15/2013 4:28 PM PST Progress Notes by Jana Norris DO at 11/15/131627 Author: Jana Norris DO Service: (none) Author Type: Associate Professor Filed: 11/15/131628 Date of Service: 11/15/131627 Status: Signed Chiropractic Assistant: Jana Norris DO (Associate Professor) Pt was extubated this am and has [...] 11/15/131408 Date of Service: 11/15/131407 Status: Signed Chiropractic Assistant: Kourtney Aldana RN (Registered Nurse) Discussed psych consult with Dr. Norris. Received verbal order for psych consult. Notifi wilbert Flores RN, she will arrange for psych consult. When pt is stable for discharge, will need to call [facility] : [phone] to evalulate before disch arging pt. KOURTNEY ALDANA 11/15/2013 2:09 PM onver hiren Transaction, Provider Unknown - 11/15/2013 9:32 AM PST Progress Notes by Nick Jeffries RN at 11/15/13931 Author: Nick Jeffries RN Service: Wound/Ostomy Care Author Type: Registered Nurse Filed: 11/15/1334 Date of Service: 11/15/13931 Status: Signed Chiropractic Assistant: Nick Jeffries RN (Registered Nurse) Pt seen [...] 0557 Date of Service: 11/15/1357 Status: Signed Chiropractic Assistant: Mat Perez RPH (Pharmacist) Clinical Pharmacy Note: Renal Monitoring Ronald Koonel 68 y.o. female Ht Readings from Last 1 Encounters: No data found for Ht Wt Readings from Last 1 Encounters: 11/15/13 69.1 kg (152 lb 5.4 oz) CREATININE Date Value Range Status 11/15/2013 0.69 0.50 - 1.00 mg/dL Final Testing performed at [facility];[address] [place] [address];[place] [address] Creatinine clearance cannot be calculated - Unknown [...] 11/15/131951 Date of Service: 11/14/131856 Status: Signed Chiropractic Assistant: Roseline Sanon RN (Registered Nurse) Pt arrived [facility] from [facility]. No report called from [place] a nd minimal report received Via [facility]. Pt transferred to bed, ventilator applied to exist ing ETT via RT. Obvious smell of ETOH emitting from PT. No cough, gag or corneals noted. shift superintendent caustic cresylate RN Gayle in room to assume care [...] DEWEY | | | | | | [id number] | | | | | | | [...] | EXTERNAL LAB | | performed at [facility];[address] [place] [address];[place] [address] 027 NAP1 BI | | | 027 NAP1 BI PRESUMPTIVE NEGATIVE | | | Detection of 027 NAP1 BI strains of C. difficile is presumptive and | | | for epidemiological purposes and not intended to guide or monitor | | | treatment for C. difficile infections. Testing performed at [facility];[address] | | [facility];[place] [address] | | + + + + +---------+ [...] | | | | | [place] [address] | | | | + + + + + + | RED CELL | 3.85Comment: Testing | 3.70 - 5.10 | EXTERNAL | | | COUNT | performed at [facility], [address] | M/uL | LAB | | | | [address], | | | | | | [place] [address] | | | | + + + + + + | Hgb | 10.7 (L)Comment: Testing | 11.3 - 15.5 | EXTERNAL | | | | performed at [facility], [address] | g/dL | LAB | | | | [address], | | | | | | [place] [address] | | | | + + + + + + | Hematocrit, | 32.8 (L)Comment: Testing | 34.0 - 46.0 % | EXTERNAL | | | POC | performed at [facility], [address] | | LAB | | | | [address], | | | | | | [place] [address] | | | | + + + + + + | MCV | 85.2Comment: Testing | 80.0 - 100.0 fl | EXTERNAL | | | | performed at [facility], [address] | | LAB | | | | [address], | | | | | | [place] [address] | | | | + + + + + + | MCH | 27.8Comment: Testing | 27.0 - 34.0 pg | EXTERNAL | | | | performed at [facility], [address] | | LAB | | | | [address], | | | | | | [place] [address] | | | | + + + + + + | MCHC | 32.6Comment: Testing | 32.0 - 35.5 | EXTERNAL | | | | performed at [facility], [address] | g/dL | LAB | | | | [address], | | | | | | [place] [address] | | | | + + + + + + | RDW-CV | 38.1Comment: Testing | 37 - 53 fl | EXTERNAL | | | | performed at [facility], [address] | | LAB | | | | [address], | | | | | | [place] [address] | | | | + + + + + + | Platelet | 222Comment: Testing | 150 - 400 K/uL | EXTERNAL | | | Count | performed at [facility], [address] | | LAB | | | Plasma | [address], | | | | | | [place] [address] | | | | + + + + + + | MPV | 7.8Comment: Testing | fl | EXTERNAL | | | | performed at [facility], [address] | | LAB | | | | [address], | | | | | | [place] [address] | | | | + + + + + + | Differentia | AUTOMATEDComment: | | EXTERNAL | | | l Type | Testing performed at | | LAB | | | | [facility], [address] | | | | | | [address], [place], [place] | | | | | | [address] | | | | + + + [...] EXTERNAL | | | | performed at [facility], [address] | | LAB | | | | [address], | | | | | | [place] [address] | | | | + + + [...] EXTERNAL | | | | performed at [facility], [address] | | LAB | | | | [address], | | | | | | [place] [address] | | | | + + + [...] | | | | | [place] [address] | | | | + + + + + + | K | 3.9Comment: Testing | 3.5 - 4.9 | EXTERNAL | | | | performed at [facility], [address] | mmol/L | LAB | | | | [address], | | | | | | [place] [address] | | | | + + + + + + | Cl | 101Comment: Testing | 99 - 109 mmol/L | EXTERNAL | | | | performed at [facility], [address] | | LAB | | | | [address], | | | | | | [place] [address] | | | | + + + + + + | CO2 | 24Comment: Testing | 23 - 32 mmol/L | EXTERNAL | | | | performed at [facility], [address] | | LAB | | | | [address], | | | | | | [place] [address] | | | | + + + + + + | Anion Gap | 12Comment: Testing | 5 - 20 mmol/L | EXTERNAL | | | | performed at [facility], [address] | | LAB | | | | [address], | | | | | | [place] [address] | | | | + + + + + + | Glucose, | 108 (H)Comment: Testing | 65 - 99 mg/dL | EXTERNAL | | | Fasting | performed at [facility], [address] | | LAB | | | | [address], | | | | | | [place] [address] | | | | + + + + + + | BUN | 12Comment: Testing | 8 - 25 mg/dL | EXTERNAL | | | | performed at [facility], [address] | | LAB | | | | [address], | | | | | | [place] [address] | | | | + + + + + + | Creatinine | 0.80Comment: Testing | 0.50 - 1.00 | EXTERNAL | | | | performed at [facility], [address] | mg/dL | LAB | | | | [address], | | | | | | [place] [address] | | | | + + + + + + | BUN/Creatin | 15Comment: Testing | | EXTERNAL | | | ine Ratio | performed at [facility], [address] | | LAB | | | | [address], | | | | | | [place] [address] | | | | + + + + + + | Calcium | 9.2Comment: Testing | 8.5 - 10.2 | EXTERNAL | | | | performed at [facility], [address] | mg/dL | LAB | | | | [address], | | | | | | [place] [address] | | | | + + + [...] | | | | | [place] [address] | | | | + + + [...] | EXTERNAL LAB | | performed at [facility];[address] [facility];[place] [address] | | + + + + +---------+ [...] | | | | | [place] [address] | | | | + + + + + + | RED CELL | 3.77Comment: Testing | 3.70 - 5.10 | EXTERNAL | | | COUNT | performed at [facility], [address] | M/uL | LAB | | | | [address], | | | | | | [place] [address] | | | | + + + + + + | Hgb | 10.8 (L)Comment: Testing | 11.3 - 15.5 | EXTERNAL | | | | performed at [facility], [address] | g/dL | LAB | | | | [address], | | | | | | [place] [address] | | | | + + + + + + | Hematocrit, | 31.9 (L)Comment: Testing | 34.0 - 46.0 % | EXTERNAL | | | POC | performed at [facility], [address] | | LAB | | | | [address], | | | | | | [place] [address] | | | | + + + + + + | MCV | 84.8Comment: Testing | 80.0 - 100.0 fl | EXTERNAL | | | | performed at [facility], [address] | | LAB | | | | [address], | | | | | | [place] [address] | | | | + + + + + + | MCH | 28.8Comment: Testing | 27.0 - 34.0 pg | EXTERNAL | | | | performed at [facility], [address] | | LAB | | | | [address], | | | | | | [place] [address] | | | | + + + + + + | MCHC | 33.9Comment: Testing | 32.0 - 35.5 | EXTERNAL | | | | performed at [facility], [address] | g/dL | LAB | | | | [address], | | | | | | [place] [address] | | | | + + + + + + | RDW-CV | 37.6Comment: Testing | 37 - 53 fl | EXTERNAL | | | | performed at [facility], [address] | | LAB | | | | [address], | | | | | | [place] [address] | | | | + + + + + + | Platelet | 183Comment: Testing | 150 - 400 K/uL | EXTERNAL | | | Count | performed at [facility], [address] | | LAB | | | Plasma | [address], | | | | | | [place] [address] | | | | + + + + + + | MPV | 7.9Comment: Testing | fl | EXTERNAL | | | | performed at [facility], [address] | | LAB | | | | [address], | | | | | | [place] [address] | | | | + + + + + + | Differentia | AUTOMATEDComment: | | EXTERNAL | | | l Type | Testing performed at | | LAB | | | | [facility], [address] | | | | | | [place] | | | | | | [address] | | | | + + + [...] EXTERNAL | | | | performed at [facility], [address] | uIU/mL | LAB | | | | [address], | | | | | | [place] [address] | | | | + + + [...] EXTERNAL | | | | performed at [facility], [address] | | LAB | | | | [facility], | | | | | | [place] [address] | | | | + + + [...] EXTERNAL | | | | performed at [facility], [address] | | LAB | | | | [address], | | | | | | [place] [address] | | | | + + + [...] | | | | | [place] [address] | | | | + + + + + + | K | 4.2Comment: Testing | 3.5 - 4.9 | EXTERNAL | | | | performed at [facility], [address] | mmol/L | LAB | | | | [address], | | | | | | [place] [address] | | | | + + + + + + | Cl | 104Comment: Testing | 99 - 109 mmol/L | EXTERNAL | | | | performed at [facility], [address] | | LAB | | | | [address], | | | | | | [place] [address] | | | | + + + + + + | CO2 | 24Comment: Testing | 23 - 32 mmol/L | EXTERNAL | | | | performed at [facility], [address] | | LAB | | | | [address], | | | | | | [place] [address] | | | | + + + + + + | Anion Gap | 11Comment: Testing | 5 - 20 mmol/L | EXTERNAL | | | | performed at [facility], [address] | | LAB | | | | [address], | | | | | | [place] [address] | | | | + + + + + + | Glucose, | 110 (H)Comment: Testing | 65 - 99 mg/dL | EXTERNAL | | | Fasting | performed at [facility], [address] | | LAB | | | | [address], | | | | | | [place] [address] | | | | + + + + + + | BUN | 11Comment: Testing | 8 - 25 mg/dL | EXTERNAL | | | | performed at [facility], [address] | | LAB | | | | [address], | | | | | | [place] [address] | | | | + + + + + + | Creatinine | 0.73Comment: Testing | 0.50 - 1.00 | EXTERNAL | | | | performed at [facility], [address] | mg/dL | LAB | | | | [address], | | | | | | [place] [address] | | | | + + + + + + | BUN/Creatin | 15Comment: Testing | | EXTERNAL | | | ine Ratio | performed at [facility], [address] | | LAB | | | | [address], | | | | | | [place] [address] | | | | + + + + + + | Calcium | 9.0Comment: Testing | 8.5 - 10.2 | EXTERNAL | | | | performed at [facility], [address] | mg/dL | LAB | | | | [address], | | | | | | [place] [address] | | | | + + + [...] | | | | | | at [facility], [address] | | | | | | [address], | | | | | | [place] [address] | | | | + + + [...] EXTERNAL LAB | | Testing performed at [facility];[address] | | | [facility];[place] [address] GRAM STAIN | | | GREATER THAN 10 WBCS/LPF | | | LESS THAN 10 SEC/LPF | | | NO ORGANISMS SEEN | | | Testing performed at [facility], [facility] [employer], | | | [place] [address] CULTURE | | | 3+ ZITA GLABRATAAbnormal | | | 2+ ZITA DUBLINIENSISAbnormal | | | 2+ KLEBSIELLA OXYTOCAAbnormal | | | 1+ NORMAL UPPER RESPIRATORY | | | CURTIS Testing | | | performed at [facility], [facility] [place] [address] | | | REPORT STATUS 11/23/2013 FINAL [...] EXTERNAL LAB | | Testing performed at [facility];[address] | | | [facility];[place] [address] SPECIAL REQUESTS | | | PICC LINE | | | Testing performed at [facility];[address] [place] [address] CULTURE | | | NO GROWTH 6 DAYS | | | Testing performed at [facility], [address] | | [place] [address] REPORT STATUS | | | 11/23/2013 FINAL [...] EXTERNAL LAB | | Testing performed at [facility];[address] | | | [facility] [address] SPECIAL REQUESTS | | | REPEAT TEST USING ALTERNATE ASSAYED CONTROL MATERIAL | | | Testing performed at [facility];[address] | | | [address];[place] [address] CULTURE | | | NO GROWTH 6 DAYS | | | Testing performed at [facility], [address] [place], | | | [place] [address] REPORT STATUS 11/23/2013 | | | FINAL [...] | Testing performed at | | | [facility];[address] [facility];[place] [address] CULTURE | | | NO GROWTH | | | Testing performed at [facility], [address] [facility], | | | [place] [address] REPORT STATUS | | | 11/18/2013 FINAL [...] | | | | | [place] [address] | | | | + + + + + + | TIBC | 155 (L)Comment: Testing | 260 - 490 ug/dL | EXTERNAL | | | | performed at [facility], [address] | | LAB | | | | [address], | | | | | | [place] [address] | | | | + + + + + + | Iron | 20Comment: Testing | 15 - 50 % | EXTERNAL | | | Saturation | performed at [facility], [address] | | LAB | | | | [address], | | | | | | [place] [address] | | | | + + + [...] EXTERNAL | | | | performed at [facility], [address] | | LAB | | | | [address], | | | | | | [place] [address] | | | | + + + + + + | RED CELL | 3.51 (L)Comment: Testing | 3.70 - 5.10 | EXTERNAL | | | COUNT | performed at [facility], [address] | M/uL | LAB | | | | [address], | | | | | | [place] [address] | | | | + + + + + + | Hgb | 9.6 (L)Comment: Testing | 11.3 - 15.5 | EXTERNAL | | | | performed at [facility], [address] | g/dL | LAB | | | | [address], | | | | | | [place] [address] | | | | + + + + + + | Hematocrit, | 29.5 (L)Comment: Testing | 34.0 - 46.0 % | EXTERNAL | | | POC | performed at [facility], [address] | | LAB | | | | [address], | | | | | | [place] [address] | | | | + + + + + + | MCV | 84.3Comment: Testing | 80.0 - 100.0 fl | EXTERNAL | | | | performed at [facility], [address] | | LAB | | | | [address], | | | | | | [place] [address] | | | | + + + + + + | MCH | 27.5Comment: Testing | 27.0 - 34.0 pg | EXTERNAL | | | | performed at [facility], [address] | | LAB | | | | [address], | | | | | | [place] [address] | | | | + + + + + + | MCHC | 32.6Comment: Testing | 32.0 - 35.5 | EXTERNAL | | | | performed at [facility], [address] | g/dL | LAB | | | | [address], | | | | | | [place] [address] | | | | + + + + + + | RDW-CV | 36.3 (L)Comment: Testing | 37 - 53 fl | EXTERNAL | | | | performed at [facility], [address] | | LAB | | | | [address], | | | | | | [place] [address] | | | | + + + + + + | Platelet | 151Comment: Testing | 150 - 400 K/uL | EXTERNAL | | | Count | performed at [facility], [address] | | LAB | | | Plasma | [address], | | | | | | [place] [address] | | | | + + + + + + | MPV | 7.9Comment: Testing | fl | EXTERNAL | | | | performed at [facility], [address] | | LAB | | | | [address], | | | | | | [place] [address] | | | | + + + + + + | Differentia | AUTOMATEDComment: | | EXTERNAL | | | l Type | Testing performed at | | LAB | | | | [facility], [address] | | | | | | [place] | | | | | | [address] | | | | + + + [...] EXTERNAL | | | | performed at [facility], [address] | | LAB | | | | [address], | | | | | | [place] [address] | | | | + + + [...] | | | External | performed at [facility], [address] | | LAB | | | | [address], | | | | | | [place] [address] | | | | + + + [...] | | | | | [place] [address] | | | | + + + [...] | | | | | [place] [address] | | | | + + + + + + | K | 3.8Comment: Testing | 3.5 - 4.9 | EXTERNAL | | | | performed at [facility], [address] | mmol/L | LAB | | | | [address], | | | | | | [place] [address] | | | | + + + + + + | Cl | 103Comment: Testing | 99 - 109 mmol/L | EXTERNAL | | | | performed at [facility], [address] | | LAB | | | | [address], | | | | | | [place] [address] | | | | + + + + + + | CO2 | 28Comment: Testing | 23 - 32 mmol/L | EXTERNAL | | | | performed at [facility], [address] | | LAB | | | | [address], | | | | | | [place] [address] | | | | + + + + + + | Anion Gap | 7Comment: Testing | 5 - 20 mmol/L | EXTERNAL | | | | performed at [facility], [address] | | LAB | | | | [address], | | | | | | [place] [address] | | | | + + + + + + | Glucose, | 131 (H)Comment: Testing | 65 - 99 mg/dL | EXTERNAL | | | Fasting | performed at [facility], [address] | | LAB | | | | [address], | | | | | | [place] [address] | | | | + + + + + + | BUN | 7 (L)Comment: Testing | 8 - 25 mg/dL | EXTERNAL | | | | performed at [facility], [address] | | LAB | | | | [address], | | | | | | [place] [address] | | | | + + + + + + | Creatinine | 0.61Comment: Testing | 0.50 - 1.00 | EXTERNAL | | | | performed at [facility], [address] | mg/dL | LAB | | | | [address], | | | | | | [place] [address] | | | | + + + + + + | BUN/Creatin | 11Comment: Testing | | EXTERNAL | | | ine Ratio | performed at [facility], [address] | | LAB | | | | [address], | | | | | | [place] [address] | | | | + + + + + + | Calcium | 8.5Comment: Testing | 8.5 - 10.2 | EXTERNAL | | | | performed at [facility], [address] | mg/dL | LAB | | | | [address], | | | | | | [place] [address] | | | | + + + + + + | Protein, | 5.2 (L)Comment: Testing | 6.3 - 8.2 g/dL | EXTERNAL | | | Total | performed at [facility], [address] | | LAB | | | | [address], | | | | | | [place] [address] | | | | + + + + + + | Albumin | 3.1 (L)Comment: Testing | 3.3 - 4.8 g/dL | EXTERNAL | | | | performed at [facility], [address] | | LAB | | | | [address], | | | | | | [place] [address] | | | | + + + + + + | Globulin | 2.1Comment: Testing | 1.3 - 4.9 g/dL | EXTERNAL | | | | performed at [facility], [address] | | LAB | | | | [address], | | | | | | [place] [address] | | | | + + + + + + | A/G Ratio | 1.5Comment: Testing | 1.0 - 2.4 | EXTERNAL | | | | performed at [facility], [address] | | LAB | | | | [employer], | | | | | | [place] [address] | | | | + + + + + + | Bilirubin | 0.6Comment: Testing | 0.1 - 1.5 mg/dL | EXTERNAL | | | Total | performed at [facility], [address] | | LAB | | | | [address], | | | | | | [place] [address] | | | | + + + + + + | ALP, | 48Comment: Testing | 35 - 115 U/L | EXTERNAL | | | External | performed at [facility], [address] | | LAB | | | | [address], | | | | | | [place] [address] | | | | + + + + + + | AST | 19Comment: Testing | 10 - 45 U/L | EXTERNAL | | | | performed at [facility], [address] | | LAB | | | | [address], | | | | | | [place] [address] | | | | + + + + + + | ALT | 21Comment: Testing | 10 - 65 U/L | EXTERNAL | | | | performed at [facility], [address] | | LAB | | | | [address], | | | | | | [place] [address] | | | | + + + [...] | | | | | | at [facility], [address] | | | | | | [address], | | | | | | [place] [address] | | | | + + + [...] EXTERNAL | | | | performed at [facility];[address] | mmol/L | LAB | | | | [address];[place], [place] | | | | | | [address] | | | | + + + [...] | Testing performed at | | | [facility];[address] [facility];[place] [address] CULTURE | | | NO GROWTH | | | Testing performed at [facility], [address] [facility], | | | [place] [address] REPORT STATUS | | | 11/17/2013 FINAL [...] | | EN LEVEL | performed at [facility];[address] | ug/mL | LAB | | | | [address];[place] | | | | | | [address] | | | | + + + [...] EXTERNAL | | | | performed at [facility], [address] | | LAB | | | | [address], | | | | | | [place] [address] | | | | + + + + + + | RED CELL | 3.54 (L)Comment: Testing | 3.70 - 5.10 | EXTERNAL | | | COUNT | performed at [facility], [address] | M/uL | LAB | | | | [address], | | | | | | [place] [address] | | | | + + + + + + | Hgb | 10.1 (L)Comment: Testing | 11.3 - 15.5 | EXTERNAL | | | | performed at [facility], [address] | g/dL | LAB | | | | [address], | | | | | | [place] [address] | | | | + + + + + + | Hematocrit, | 29.5 (L)Comment: Testing | 34.0 - 46.0 % | EXTERNAL | | | POC | performed at [facility], [address] | | LAB | | | | [address], | | | | | | [place] [address] | | | | + + + + + + | MCV | 83.4Comment: Testing | 80.0 - 100.0 fl | EXTERNAL | | | | performed at [facility], [address] | | LAB | | | | [address], | | | | | | [place] [address] | | | | + + + + + + | MCH | 28.7Comment: Testing | 27.0 - 34.0 pg | EXTERNAL | | | | performed at [facility], [address] | | LAB | | | | [address], | | | | | | [place] [address] | | | | + + + + + + | MCHC | 34.3Comment: Testing | 32.0 - 35.5 | EXTERNAL | | | | performed at [facility], [address] | g/dL | LAB | | | | [address], | | | | | | [place] [address] | | | | + + + + + + | RDW-CV | 37.6Comment: Testing | 37 - 53 fl | EXTERNAL | | | | performed at [facility], [address] | | LAB | | | | [address], | | | | | | [place] [address] | | | | + + + + + + | Platelet | 176Comment: Testing | 150 - 400 K/uL | EXTERNAL | | | Count | performed at [facility], [address] | | LAB | | | Plasma | [address], | | | | | | [place] [address] | | | | + + + + + + | MPV | 7.8Comment: Testing | fl | EXTERNAL | | | | performed at [facility], [address] | | LAB | | | | [address], | | | | | | [place] [address] | | | | + + + + + + | Differentia | AUTOMATEDComment: | | EXTERNAL | | | l Type | Testing performed at | | LAB | | | | [facility], [address] | | | | | | [place] | | | | | | [address] | | | | + + + [...] EXTERNAL | | | | performed at [facility];[address] | | LAB | | | | [facility];[place], [place] | | | | | | [address] | | | | + + + [...] EXTERNAL | | | | performed at [facility] | | LAB | | | | [address];[place] | | | | | | [address] | | | | + + + [...] | | EN LEVEL | performed at [facility];[address] | ug/mL | LAB | | | | [address];[place], [place] | | | | | | [address] | | | | + + + [...] EXTERNAL | | | | performed at [facility];[address] | mmol/L | LAB | | | | [address];[place] | | | | | | [address] | | | | + + + + + + | K | 3.1 (L)Comment: Testing | 3.5 - 4.9 | EXTERNAL | | | | performed at [facility];[address] | mmol/L | LAB | | | | [address];[place] | | | | | | [address] | | | | + + + + + + | Cl | 109Comment: Testing | 99 - 109 mmol/L | EXTERNAL | | | | performed at [facility];[address] | | LAB | | | | [address];[place] | | | | | | [address] | | | | + + + + + + | CO2 | 27Comment: Testing | 23 - 32 mmol/L | EXTERNAL | | | | performed at [facility];[address] | | LAB | | | | [address];[place] | | | | | | [address] | | | | + + + + + + | Anion Gap | 10Comment: Testing | 5 - 20 mmol/L | EXTERNAL | | | | performed at [facility];[address] | | LAB | | | | [address];[place] | | | | | | [address] | | | | + + + + + + | Glucose, | 78Comment: Testing | 65 - 99 mg/dL | EXTERNAL | | | Fasting | performed at [facility];[address] | | LAB | | | | [address];[place] | | | | | | [address] | | | | + + + + + + | BUN | 7 (L)Comment: Testing | 8 - 25 mg/dL | EXTERNAL | | | | performed at [facility];[address] | | LAB | | | | [address];[place] | | | | | | [address] | | | | + + + + + + | Creatinine | 0.77Comment: Testing | 0.50 - 1.00 | EXTERNAL | | | | performed at [facility];[address] | mg/dL | LAB | | | | [address];[place] | | | | | | [address] | | | | + + + + + + | BUN/Creatin | 9Comment: Testing | | EXTERNAL | | | ine Ratio | performed at [facility];[address] | | LAB | | | | [address];[place] | | | | | | [address] | | | | + + + + + + | Calcium | 7.8 (L)Comment: Testing | 8.5 - 10.2 | EXTERNAL | | | | performed at [facility];[address] | mg/dL | LAB | | | | [address];[place], [place] | | | | | | [address] | | | | + + + [...] | | | | | | at [facility];[address];[place] [address] | | | | + + + [...] | | EN LEVEL | performed at [facility];[address] | ug/mL | LAB | | | | [address];[place] | | | | | | [address] | | | | + + + [...] EXTERNAL | | | | performed at [facility];[address] | | LAB | | | | [address] [facility];[place], [place] | | | | | | [address] | | | | + + + [...] | | | | | | ACUTE MA Testing | | | | | | performed at [facility] | | | | | | [address];[place], [place] | | | | | | [address] | | | | + + + [...] EXTERNAL | | | | performed at [facility];[address] | | LAB | | | | [address];[place], [place] | | | | | | [address] | | | | + + + [...] | | EN LEVEL | performed at [facility];[address] | ug/mL | LAB | | | | [address];[place], [place] | | | | | | [address] | | | | + + + [...] TR | | | Vmax: 2.44 m/s Brick Washer: Authenticated by: Finesse Cortez | | | [...] 23.26 cmAVA Vmax: 3.14 cm2AVA (VTI): 2.90 [id number] Dopp: | | 4.57 l/[id number] Dopp: 7.95 l/minHR: 117.60 BPMLVOT maxP.36 mmHgLVOT [...] maxP.88 mmHgTR Vmax: | | 2.44 m/s Brick Washer: ABAuthenticated by: Finesse Aponte Date/Time: 11-15-2013 | [...] |TR Vmax: 2.44 m/s | | | |Brick Washer: AB | |Authenticated by: Finesse Cortez MD [...] | | EN LEVEL | performed at [facility];[address] | ug/mL | LAB | | | | [address];[place], [place] | | | | | | [address] | | | | + + + [...] EXTERNAL | | | | performed at [facility];[address] | mmol/L | LAB | | | | [address];[place] | | | | | | [address] | | | | + + + + + + | K | 3.9Comment: Testing | 3.5 - 4.9 | EXTERNAL | | | | performed at [facility];[address] | mmol/L | LAB | | | | [address];[place] | | | | | | [address] | | | | + + + + + + | Cl | 114 (H)Comment: Testing | 99 - 109 mmol/L | EXTERNAL | | | | performed at [facility];[address] | | LAB | | | | [address];[place] | | | | | | [address] | | | | + + + + + + | CO2 | 20 (L)Comment: Testing | 23 - 32 mmol/L | EXTERNAL | | | | performed at [facility];[address] | | LAB | | | | [address];[place] | | | | | | [address] | | | | + + + + + + | Anion Gap | 14Comment: Testing | 5 - 20 mmol/L | EXTERNAL | | | | performed at [facility];[address] | | LAB | | | | [address];[place] | | | | | | [address] | | | | + + + + + + | Glucose, | 153 (H)Comment: Testing | 65 - 99 mg/dL | EXTERNAL | | | Fasting | performed at [facility];[address] | | LAB | | | | [address];[place] | | | | | | [address] | | | | + + + + + + | BUN | 8Comment: Testing | 8 - 25 mg/dL | EXTERNAL | | | | performed at [facility];[address] | | LAB | | | | [address];[place] | | | | | | [address] | | | | + + + + + + | Creatinine | 0.92Comment: Testing | 0.50 - 1.00 | EXTERNAL | | | | performed at [facility];888 | mg/dL | LAB | | | | [address];[place] | | | | | | [address] | | | | + + + + + + | BUN/Creatin | 9Comment: Testing | | EXTERNAL | | | ine Ratio | performed at [facility];[address] | | LAB | | | | [address];[place] | | | | | | [address] | | | | + + + + + + | Calcium | 7.4 (L)Comment: Testing | 8.5 - 10.2 | EXTERNAL | | | | performed at [facility];888 | mg/dL | LAB | | | | [address];[place] | | | | | | [address] | | | | + + + [...] | | | | | | at [facility];[address];[place] [address] | | | | + + + [...] EXTERNAL | | | | performed at [facility];[address] | | LAB | | | | [address];[place] | | | | | | [address] | | | | + + + [...] | | | | | | ACUTE MA Testing | | | | | | performed at [facility];[address] | | | | | | [address];[place], [place] | | | | | | [address] | | | | + + + [...] EXTERNAL | | | | performed at [facility];[address] | | LAB | | | | [address];[place] | | | | | | [address] | | | | + + + [...] | | EN LEVEL | performed at [facility];[address] | ug/mL | LAB | | | | [address];[place], [place] | | | | | | [address] | | | | + + + [...] EXTERNAL | | | | performed at [facility];888 | mmol/L | LAB | | | | [address];[place], [place] | | | | | | [address] | | | | + + + [...] EXTERNAL | | | | performed at [facility] | | LAB | | | | [address];[place] | | | | | | [address] | | | | + + + [...] | | | | | | ACUTE MA CKTRP PHONED TO | | | | | | ICU GAYLE N AT 0540 BY | | | | | | LJREAD BACK RESULTS | | | | | | VERIFIEDTesting | | | | | | performed at [facility];[address] | | | | | | [address];[place] | | | | | | [address] | | | | + + + [...] | LAB | | | | [address], | | | | | | [place] [address] | | | | + + + + + + | RED CELL | 3.94Comment: Testing | 3.70 - 5.10 | EXTERNAL | | | COUNT | performed at [facility], [address] | M/uL | LAB | | | | [address], | | | | | | [place] [address] | | | | + + + + + + | Hgb | 10.9 (L)Comment: Testing | 11.3 - 15.5 | EXTERNAL | | | | performed at [facility], [address] | g/dL | LAB | | | | [address], | | | | | | [place] [address] | | | | + + + + + + | Hematocrit, | 33.7 (L)Comment: Testing | 34.0 - 46.0 % | EXTERNAL | | | POC | performed at [facility], [address] | | LAB | | | | [address], | | | | | | [place] [address] | | | | + + + + + + | MCV | 85.6Comment: Testing | 80.0 - 100.0 fl | EXTERNAL | | | | performed at [facility], [address] | | LAB | | | | [address], | | | | | | [place] [address] | | | | + + + + + + | MCH | 27.7Comment: Testing | 27.0 - 34.0 pg | EXTERNAL | | | | performed at [facility], [address] | | LAB | | | | [address], | | | | | | [place] [address] | | | | + + + + + + | MCHC | 32.3Comment: Testing | 32.0 - 35.5 | EXTERNAL | | | | performed at [facility], [address] | g/dL | LAB | | | | [address], | | | | | | [place] [address] | | | | + + + + + + | RDW-CV | 37.6Comment: Testing | 37 - 53 fl | EXTERNAL | | | | performed at [facility], [address] | | LAB | | | | [address], | | | | | | [place] [address] | | | | + + + + + + | Platelet | 196Comment: Testing | 150 - 400 K/uL | EXTERNAL | | | Count | performed at [facility], [address] | | LAB | | | Plasma | [address], | | | | | | [place] [address] | | | | + + + + + + | MPV | 7.3Comment: Testing | fl | EXTERNAL | | | | performed at [facility], [address] | | LAB | | | | [address], | | | | | | [place] [address] | | | | + + + + + + | Differentia | AUTOMATEDComment: | | EXTERNAL | | | l Type | Testing performed at | | LAB | | | | [facility], [address] | | | | | | [place] | | | | | | [address] | | | | + + + [...] | | | Serum | performed at [facility];[address] | mOsm/kg | LAB | | | | [address];[place] | | | | | | [address] | | | | + + + [...] EXTERNAL | | | | performed at [facility];[address] | | LAB | | | | [address];[place], [place] | | | | | | [address] | | | | + + + [...] | | EN LEVEL | performed at [facility];[address] | ug/mL | LAB | | | | [address];[place], [place] | | | | | | [address] | | | | + + + [...] EXTERNAL | | | | performed at [facility];[address] | mmol/L | LAB | | | | [address];[place] | | | | | | [address] | | | | + + + + + + | K | 3.2 (L)Comment: Testing | 3.5 - 4.9 | EXTERNAL | | | | performed at [facility];888 | mmol/L | LAB | | | | [address];[place] | | | | | | [address] | | | | + + + + + + | Cl | 117 (H)Comment: Testing | 99 - 109 mmol/L | EXTERNAL | | | | performed at [facility];[address] | | LAB | | | | [address];[place] | | | | | | [address] | | | | + + + + + + | CO2 | 13 (LL)Comment: CO2 | 23 - 32 mmol/L | EXTERNAL | | | | PHONED TO AIDEE Butt AT | | LAB | | | | 0520 BY LJREAD BACK | | | | | | RESULTS VERIFIEDTesting | | | | | | performed at [facility];[address] | | | | | | [address];[place] | | | | | | [address] | | | | + + + + + + | Anion Gap | 20Comment: Testing | 5 - 20 mmol/L | EXTERNAL | | | | performed at [facility];[address] | | LAB | | | | [address];[place] | | | | | | [address] | | | | + + + + + + | Glucose, | 130 (H)Comment: Testing | 65 - 99 mg/dL | EXTERNAL | | | Fasting | performed at [facility];[address] | | LAB | | | | [address];[place] | | | | | | [address] | | | | + + + + + + | BUN | 8Comment: Testing | 8 - 25 mg/dL | EXTERNAL | | | | performed at [facility];[address] | | LAB | | | | [address];[place] | | | | | | [address] | | | | + + + + + + | Creatinine | 0.69Comment: Testing | 0.50 - 1.00 | EXTERNAL | | | | performed at [facility];[address] | mg/dL | LAB | | | | [address];[place] | | | | | | [address] | | | | + + + + + + | BUN/Creatin | 12Comment: Testing | | EXTERNAL | | | ine Ratio | performed at [facility];[address] | | LAB | | | | [address];[place] | | | | | | [address] | | | | + + + + + + | Calcium | 6.7 (L)Comment: Testing | 8.5 - 10.2 | EXTERNAL | | | | performed at [facility];888 | mg/dL | LAB | | | | [address];[place] | | | | | | [address] | | | | + + + + + + | Protein, | 5.2 (L)Comment: Testing | 6.3 - 8.2 g/dL | EXTERNAL | | | Total | performed at [facility];[address] | | LAB | | | | [address];[place] | | | | | | [address] | | | | + + + + + + | Albumin | 3.3Comment: Testing | 3.3 - 4.8 g/dL | EXTERNAL | | | | performed at [facility];[address] | | LAB | | | | [address];[place] | | | | | | [address] | | | | + + + + + + | Globulin | 1.9Comment: Testing | 1.3 - 4.9 g/dL | EXTERNAL | | | | performed at [facility];[address] | | LAB | | | | [address];[place] | | | | | | [address] | | | | + + + + + + | A/G Ratio | 1.8Comment: Testing | 1.0 - 2.4 | EXTERNAL | | | | performed at [facility];[address] | | LAB | | | | [address];[place] | | | | | | [address] | | | | + + + + + + | Bilirubin | 0.2Comment: Testing | 0.1 - 1.5 mg/dL | EXTERNAL | | | Total | performed at [facility];[address] | | LAB | | | | [address];[place] | | | | | | [address] | | | | + + + + + + | ALP, | 47Comment: Testing | 35 - 115 U/L | EXTERNAL | | | External | performed at [facility];[address] | | LAB | | | | [address];[place] | | | | | | [address] | | | | + + + + + + | AST | 49 (H)Comment: Testing | 10 - 45 U/L | EXTERNAL | | | | performed at [facility];[address] | | LAB | | | | [address];[place] | | | | | | [address] | | | | + + + + + + | ALT | 61Comment: Testing | 10 - 65 U/L | EXTERNAL | | | | performed at [facility];[address] | | LAB | | | | [address];[place] | | | | | | [address] | | | | + + + [...] | | | | | | at [facility];[address] [place] [address] | | | | | | [facility];[place] [address] | | | | + + + [...] | | | Fingerstick | performed at [facility];[address] | | LAB | | | | [address];[place] | | | | | | [address] | | | | + + + [...] | | LAB | | | | [facility];[address];[place] [address] | | | | + + + + + + | PCO2 ART | 40Comment: Testing | 35 - 45 mmHg | EXTERNAL | | | | performed at [facility];[address] | | LAB | | | | [address];[place] | | | | | | [address] | | | | + + + + + + | PO2 ART | 283 (H)Comment: Testing | 80 - 105 mmHg | EXTERNAL | | | | performed at [facility];[address] | | LAB | | | | [address];[place] | | | | | | [address] | | | | + + + + + + | Lactate, | 3.7 (H)Comment: Testing | 0.36 - 1.25 | EXTERNAL | | | Arterial | performed at [facility];888 | mmol/L | LAB | | | | [address];[place] | | | | | | [address] | | | | + + + + + + | HCO3 ART | 14 (L)Comment: Testing | 22 - 26 mmol/L | EXTERNAL | | | | performed at [facility];[address] | | LAB | | | | [address];[place] | | | | | | [address] | | | | + + + + + + | POC | 15 (L)Comment: Testing | 23 - 27 mEq/L | EXTERNAL | | | APPEARANCE | performed at [facility];[address] | | LAB | | | UA | [address];[place] | | | | | | [address] | | | | + + + + + + | Base | 15 (H)Comment: Testing | 0.0 - 2.0 | EXTERNAL | | | deficit | performed at [facility];888 | mmol/L | LAB | | | | [address];[place] | | | | | | [address] | | | | + + + + + + | O2 SAT ART | 100 (H)Comment: Testing | 95 - 98 % | EXTERNAL | | | | performed at [facility];[address] | | LAB | | | | [address];[place] | | | | | | [address] | | | | + + + + + + | FiO2, POC | 70Comment: Testing | % | EXTERNAL | | | | performed at [facility];[address] | | LAB | | | | [address];[place] | | | | | | [address] | | | | + + + + + + | Comment, | Tidal Volume = | | EXTERNAL | | | POC | 500Comment: Peep = 5Resp | | LAB | | | | Rate = 15Testing | | | | | | performed at [facility];[address] | | | | | | [address];[place] | | | | | | [address] | | | | + + + [...] EXTERNAL | | | | performed at [facility];[address] | mmol/L | LAB | | | | [address];[place], [place] | | | | | | [address] | | | | + + + [...] | | | (Calc) | performed at [facility];888 | mmol/L | LAB | | | | [address];[place] | | | | | | [address] | | | | + + + + + + | pH, Bld | 7.179 (L)Comment: | 7.300 - 7.450 | EXTERNAL | | | | Testing performed at | | LAB | | | | [facility];[address] [facility] | | | | | | Blvd;[place] [address] | | | | + + + [...] | | | Patient | performed at [facility] | | LAB | | | | [address];[place], [place] | | | | | | [address] | | | | + + + [...] | | | | | performed at [facility];[address] | | | | | | [address];[place], [place] | | | | | | [address] | | | | + + + [...] EXTERNAL | | | | performed at [facility];[address] | | LAB | | | | [address];[place] | | | | | | [address] | | | | + + + + + + | RED CELL | 4.41Comment: Testing | 3.70 - 5.10 | EXTERNAL | | | COUNT | performed at [facility];888 | M/uL | LAB | | | | [address];[place] | | | | | | [address] | | | | + + + + + + | Hgb | 12.7Comment: Testing | 11.3 - 15.5 | EXTERNAL | | | | performed at [facility];888 | g/dL | LAB | | | | [address];[place] | | | | | | [address] | | | | + + + + + + | Hematocrit, | 37.4Comment: Testing | 34.0 - 46.0 % | EXTERNAL | | | POC | performed at [facility];[address] | | LAB | | | | [address];[place] | | | | | | [address] | | | | + + + + + + | MCV | 84.7Comment: Testing | 80.0 - 100.0 fl | EXTERNAL | | | | performed at [facility];[address] | | LAB | | | | [address];[place] | | | | | | [address] | | | | + + + + + + | MCH | 28.8Comment: Testing | 27.0 - 34.0 pg | EXTERNAL | | | | performed at [facility];[address] | | LAB | | | | [address];[place] | | | | | | [address] | | | | + + + + + + | MCHC | 34.0Comment: Testing | 32.0 - 35.5 | EXTERNAL | | | | performed at [facility];888 | g/dL | LAB | | | | [address];[place] | | | | | | [address] | | | | + + + + + + | RDW-CV | 37.2Comment: Testing | 37 - 53 fl | EXTERNAL | | | | performed at [facility];[address] | | LAB | | | | [address];[place] | | | | | | [address] | | | | + + + + + + | Platelet | 296Comment: Testing | 150 - 400 K/uL | EXTERNAL | | | Count | performed at [facility];[address] | | LAB | | | Plasma | [address];[place] | | | | | | [address] | | | | + + + + + + | MPV | 7.2Comment: Testing | fl | EXTERNAL | | | | performed at [facility];[address] | | LAB | | | | [address];[place] | | | | | | [address] | | | | + + + + + + | Differentia | AUTOMATEDComment: | | EXTERNAL | | | l Type | Testing performed at | | LAB | | | | [facility];[address];[place] [address] | | | | + + + [...] EXTERNAL | | | | performed at [facility];[address] | | LAB | | | | [address];[place] | | | | | | [address] | | | | + + + [...] EXTERNAL | | | | performed at [facility] | | LAB | | | | [address];[place], [place] | | | | | | [address] | | | | + + + [...] | | EN LEVEL | performed at [facility];888 | ug/mL | LAB | | | | [address];[place] | | | | | | [address] | | | | + + + [...] | | | Total | performed at [facility];[address] | | LAB | | | | [address];[place] | | | | | | [address] | | | | + + + + + + | Albumin | 3.1 (L)Comment: Testing | 3.3 - 4.8 g/dL | EXTERNAL | | | | performed at [facility];[address] | | LAB | | | | [address];[place] | | | | | | [address] | | | | + + + + + + | Bilirubin | 0.2Comment: Testing | 0.1 - 1.5 mg/dL | EXTERNAL | | | Total | performed at [facility];[address] | | LAB | | | | [address];[place] | | | | | | [address] | | | | + + + + + + | Bilirubin | <0.1Comment: Testing | 0.0 - 0.3 mg/dL | EXTERNAL | | | Direct | performed at [facility];[address] | | LAB | | | | [address];[place] | | | | | | [address] | | | | + + + + + + | ALP, | 76Comment: Testing | 35 - 115 U/L | EXTERNAL | | | External | performed at [facility];[address] | | LAB | | | | [address];[place] | | | | | | [address] | | | | + + + + + + | AST | 75 (H)Comment: Testing | 10 - 45 U/L | EXTERNAL | | | | performed at [facility];[address] | | LAB | | | | [address];[place] | | | | | | [address] | | | | + + + + + + | ALT | 67 (H)Comment: Testing | 10 - 65 U/L | EXTERNAL | | | | performed at [facility];[address] | | LAB | | | | [address];[place] | | | | | | [address] | | | | + + + [...] EXTERNAL | | | | performed at [facility];888 | mmol/L | LAB | | | | [address];[place] | | | | | | [address] | | | | + + + + + + | K | 3.0 (L)Comment: Testing | 3.5 - 4.9 | EXTERNAL | | | | performed at [facility];888 | mmol/L | LAB | | | | [address];[place] | | | | | | [address] | | | | + + + + + + | Cl | 114 (H)Comment: Testing | 99 - 109 mmol/L | EXTERNAL | | | | performed at [facility];[address] | | LAB | | | | [address];[place] | | | | | | [address] | | | | + + + + + + | CO2 | 16 (L)Comment: Testing | 23 - 32 mmol/L | EXTERNAL | | | | performed at [facility];[address] | | LAB | | | | [address];[place] | | | | | | [address] | | | | + + + + + + | Anion Gap | 16Comment: Testing | 5 - 20 mmol/L | EXTERNAL | | | | performed at [facility];[address] | | LAB | | | | [address];[place] | | | | | | [address] | | | | + + + + + + | Glucose, | 187 (H)Comment: Testing | 65 - 99 mg/dL | EXTERNAL | | | Fasting | performed at [facility];[address] | | LAB | | | | [address];[place] | | | | | | [address] | | | | + + + + + + | BUN | 10Comment: Testing | 8 - 25 mg/dL | EXTERNAL | | | | performed at [facility];[address] | | LAB | | | | [address];[place] | | | | | | [address] | | | | + + + + + + | Creatinine | 0.79Comment: Testing | 0.50 - 1.00 | EXTERNAL | | | | performed at [facility];888 | mg/dL | LAB | | | | [address];[place] | | | | | | [address] | | | | + + + + + + | BUN/Creatin | 13Comment: Testing | | EXTERNAL | | | ine Ratio | performed at [facility];[address] | | LAB | | | | [address];[place] | | | | | | [address] | | | | + + + + + + | Calcium | 6.5 (L)Comment: Testing | 8.5 - 10.2 | EXTERNAL | | | | performed at [facility];888 | mg/dL | LAB | | | | [address];[place] | | | | | | [address] | | | | + + + [...] | | | | | | at [facility];[address] | | | | [address];[place] [address] | | | | + + + [...] Conversion - 06/15/2019 1:42 PM PDT RONALD [id number] years | | FemaleCT HEAD WO CONTRAST11/14/2013 [...] | Testing performed at | | | [facility];[address] [facility];[place] [address] GRAM STAIN | | | GREATER THAN 10 WBCS/LPF | | | LESS THAN 10 SEC/LPF | | | 2+ GRAM POSITIVE COCCI | | | 1+ GRAM POSITIVE RODS | | | Testing performed at [facility], [address] | | | [place] [address] CULTURE | | | 2+ NORMAL UPPER RESPIRATORY CURTIS | | | Testing performed at [facility], [address] | | | [place] [address] REPORT STATUS | | | 11/16/2013 FINAL [...] EXTERNAL | | | | performed at [facility];[address] | | LAB | | | | [address];[place] | | | | | | [address] | | | | + + + + + + | RBC, UA | 0-2Comment: Testing | 0 - 5 /hpf | EXTERNAL | | | | performed at [facility];[address] | | LAB | | | | [address];[place] | | | | | | [address] | | | | + + + + + + | Epithelial | NONE SEENComment: | /lpf | EXTERNAL | | | Cells | Testing performed at | | LAB | | | | [facility];[address];[place] [address] | | | | + + + + + + | Bacteria, | TRACE (A)Comment: | | EXTERNAL | | | UA | Testing performed at | | LAB | | | | [facility];[address] [place] [address] | | | | | | [facility];[place] [address] | | | | + + + [...] EXTERNAL | | | | performed at [facility];[address] | | LAB | | | | [address];[place] | | | | | | [address] | | | | + + + + + + | Clarity | CLEARComment: Testing | | EXTERNAL | | | | performed at [facility];[address] | | LAB | | | | [address];[place] | | | | | | [address] | | | | + + + + + + | Specific | 1.004Comment: Testing | 1.001 - 1.035 | EXTERNAL | | | [place] | performed at [facility];[address] | | LAB | | | | [address];[place] | | | | | | [address] | | | | + + + + + + | Leukocyte | TRACE (A)Comment: | | EXTERNAL | | | Esterase, | Testing performed at | | LAB | | | Urine | [facility];[address];[place] [address] | | | | + + + + + + | Nitrite, | NEGATIVEComment: Testing | | EXTERNAL | | | Urine | performed at [facility];[address] | | LAB | | | | [address];[place] | | | | | | [address] | | | | + + + + + + | Urobilinoge | 0.2Comment: Testing | mg/dL | EXTERNAL | | | n, Urine | performed at [facility];[address] | | LAB | | | | [address];[place] | | | | | | [address] | | | | + + + + + + | Protein, | NEGATIVEComment: Testing | mg/dL | EXTERNAL | | | Urine | performed at [facility];[address] | | LAB | | | | [address];[place] | | | | | | [address] | | | | + + + + + + | pH, Urine | 5.0Comment: Testing | 4.6 - 8.0 | EXTERNAL | | | | performed at [facility];[address] | | LAB | | | | [address];[place] | | | | | | [address] | | | | + + + + + + | Blood, | NEGATIVEComment: Testing | | EXTERNAL | | | Urine | performed at [facility];[address] | | LAB | | | | [address];[place] | | | | | | [address] | | | | + + + + + + | Ketones | NEGATIVEComment: Testing | mg/dL | EXTERNAL | | | | performed at [facility];[address] | | LAB | | | | [address];[place] | | | | | | [address] | | | | + + + + + + | Bilirubin, | NEGATIVEComment: Testing | | EXTERNAL | | | Urine | performed at [facility];[address] | | LAB | | | | [address];[place] | | | | | | [address] | | | | + + + + + + | Glucose, | NEGATIVEComment: Testing | mg/dL | EXTERNAL | | | Urine | performed at [facility];[address] | | LAB | | | | [address];[place] | | | | | | [address] | | | | + + + [...] EXTERNAL LAB | | Testing performed at [facility];[address] [place] [address];[place] [address] MRSA PCR | | | NEGATIVE Testing performed at | | | [address];[place] [address] | | + + + + +---------+ [...] | | | Fingerstick | performed at [facility];[address] | | LAB | | | | [address];[place], [place] | | | | | | [address] | | | | + + + [...]
--- OUTSIDE RECORDS SUMMARY | ~2019-09-28 | XMS | Encounter Summary ---
Demographics + + + | Address | [address] | | | [place] [address] | + + + | Home Phone [...] Team Providers + +------+ + | Care Seo Executive Name | Role | Phone | [...] Chronic low | [place], | [address] | | | | | back pain | Shay Mukherjee MD | [place], | | | | | Lumbar | [address] | [place] | | | | | radiculopath | [place] | [address] | | | | | y | [place] | Phone: | | | | | Procedures | [address] | [phone] | | | | | MRI Lumbar | Phone: | Fax: | | | | | Spine wo | [phone] | [phone] | | | | | Contrast | Fax: | | | | | | MRI | [phone] | | +--------+--------+ + + + + Encounter Details +--------+ + + + + | Date | Type | Department | Care Team | Description | +--------+ + + + + | 03/07/ | Orders Only | [facility] [place] | Shay Dietz | Chronic low back | | 2013 | | PHYSIATRY [address] | MD Lonny [address] | pain (Primary Dx); | | | | [address] [place], | [address] [place] | Lumbar radiculopathy | | | | [place] [address] | [address] | | | | | [phone] | | | +--------+ + + + [...] [place] | | | | | | [address] | | | | | | | | +--------+---------+ + + + documented as of this encounter Results MRI Lumbar Spine [...] DESCRIBED ABOVE. Dictated and Signed by: Carlos Armando | | MD Michael Electronically signed: 04/12/2014 12:35 PM | | + + + + + | Procedure Note | + + | Reji Pacheco Results In - 04/12/2014 12:38 PM PDT [...] + + | Performing | Address | City/State/[facility] Cent[facility]ode | Phone Number | | Organization | | | | + +---------+ + + | [facility] | | | [phone] | + +---------+ + + | [facility] | | | [phone] | + +---------+ + + documented in this encounter Visit Diagnoses + + | Diagnosis | + + | Chronic low back pain - Primary Lumbago | + + | Lumbar radiculopathy Thoracic or lumbosacral neuritis or radiculitis, unspecified | + + documented in this encounter"
--- OUTSIDE RECORDS SUMMARY | ~2019-09-28 | XMS | Clinical Summary ---
Demographics + + + | Address | [address] | | | [place] [address] | + + + | Home Phone [...] + | Author | [facility] (Historical as of | | | 06-16-19) | + + + | Organization | [facility] (Historical as of | | [...] Team Providers + +------+ + | Care Scaffolding Helper Name | Role | Phone | [...] +---------+------+------+-------+ | | Apply to affected | 64944 g | 3 | 04/30 | 04/30 [...] Overview: Added automatically from request for surgery [id number] | + + + + + | Radiculopathy of thoracolumbar region | 06/07/2019 | + + + + + | Overview: Added automatically from request for surgery [id number] | + + + + + | Radiculopathy, lumbosacral region | 06/07/2019 | + + + + + | Overview: Added automatically from request for surgery [id number] | + + + + + | Spondylosis without myelopathy or radiculopathy, cervical region | 03/20/2019 | + + + + + | Overview: Added automatically from request for surgery [id number] | + + + + + | Spondylosis without myelopathy or radiculopathy, lumbosacral | 03/20/2019 | | region | | + + + + + | Overview: Added automatically from request for surgery [id number] | + + + + + | Chronic bilateral low back pain without sciatica | 03/20/2019 | + + + + + | Overview: Added automatically from request for surgery [id number] | + + + + + | Strain of lumbar region | 02/25/2019 | + + + + + | Overview: Added automatically from request for surgery [id number] | + + + + + | Lumbar region somatic dysfunction | 02/25/2019 | + + + + + | Overview: Added automatically from request for surgery [id number] | + + + + + | Chronic low back pain with sciatica | 02/25/2019 | + + + + + | Overview: Added automatically from request for surgery [id number] | + + + + + | Intervertebral disc disorders with radiculopathy, lumbosacral | 02/25/2019 | | region | | + + + + + | Overview: Added automatically from request for surgery [id number] | + + + + + | Spinal stenosis of lumbosacral region | 02/25/2019 | + + + + + | Overview: Added automatically from request for surgery [id number] | + + + + + | [...] Overview: Added automatically from request for surgery [id number] | | 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
--- OUTSIDE RECORDS SUMMARY | ~2019-09-28 | XMS | Encounter Summary ---
Demographics + + + | Address | [address] | | | [place] [address] | + + + | Home Phone | | + + + | Preferred Language | Unknown | + + + | Marital Status | | + + + | Evangelical Affiliation | 1013 | + + + | Race | Unknown | + + + | Ethnic Group | Unknown | + + + Author + + + | Author | [facility] (Historical as of | | | 06-16-19) | + + + | Organization | [facility] (Historical as of | | | [...] Providers + +------+ + | Care Technical Stenographer Name | Role | Phone | + +------+ + | Romy De La Paz MD | PCP | | + +------+ + Encounter Details +--------+ + + + + | Date | Type | Department | Care Team | Description | +--------+ + + + + | 08/03/ | Procedure | [facility] | | | | 2019 | Pass | Medical Center | | | | | | Operating Room 888 | | | | | | [facility] | | | | | | [place] [address] | | | | | | [phone] | | | +--------+ + + + [...]
--- OUTSIDE RECORDS SUMMARY | ~2019-09-28 | XMS | Encounter Summary ---
Demographics + + + | Address | [address] | | | [place] [address] | + + + | Home Phone [...] Author + + + | Author | [facility] | + + + | Organization | [facility] | + + + | Address | Unknown | + + + | Phone | Unavailable | + + + Support + + +---------+ + | Name | Relationship | Address | Phone | + + +---------+ + | Royce Menchaca | ECON | Unknown | | + + +---------+ + Care Team Providers + +------+ + | Care Network Contract Manager Name | Role | Phone | + +------+ + | Miquel Calhoun MD | PCP | | + +------+ + Encounter Details +--------+ + + + + | Date | Type | Department | Care Team | Description | +--------+ + + + + | 11/05/ | [facility] | Khushbu Cortez, | | | 2013 | | [facility] | LEARNING DESIGNER [place], [place] | | | | | [address] | [address] | | | | | [address] | | | | | | A[place]annon | | | | | | [place], [place] | | | | | | [address] | | | | | | [phone] | | | +--------+ + + + [...]
--- OUTSIDE RECORDS SUMMARY | ~2019-09-28 | XMS | Encounter Summary ---
Demographics + + + | Address | [address] | | | [place] [address] | + + + | Home Phone [...] Team Providers + +------+ + | Care Machinist Helper Marine Name | Role | Phone | + +------+ + | Miquel Calhoun MD | PCP | | + +------+ + Encounter Details +--------+ + + + + | Date | Type | Department | Care Team | Description | +--------+ + + + + | 10/18/ | Telephone | [facility] | Khushbu Cortez, | | | 2012 | | [facility] | DIRECTOR OF FINANCIAL AID [place], [place] | | | | | [address] | [address] | | | | | [address] | | | | | | Aravind Hannon | | | | | | [place], [place] | | | | | | [address] | | | | | | [phone] | | | +--------+ + + + [...]
--- OUTSIDE RECORDS SUMMARY | ~2019-09-28 | XMS | Encounter Summary ---
Demographics + + + | Address | [address] | | | [place] [address] | + + + | Home Phone [...] Team Providers + +------+ + | Care Biometrics Technician Name | Role | Phone | [...] | Cervical | Darrin | [address] | | | | | radiculopath | [address] | [place], | | | | | y | [address] | [place] | | | | | Myelopathy | [address] | [address] | | | | | (HCC) | [place], [place] | Phone: | | | | | Procedures | [address] | [phone] | | | | | MRI Cervical | Phone: | Fax: | | | | | Spine wo | [phone] | [phone] | | | | | Contrast | Fax: | | | | | | | [phone] | | +--------+--------+ + + + + [...] | region | [address] | AV [place], | | | | | Chronic low | [place], [place] | [place] [address] | | | | | back pain | [address] | Phone: | | | | | Facet | Phone: | [phone] | | | | | arthritis of | [phone] | Fax: | | | | | lumbar | Fax: | [phone] | | | | | region | [phone] | | | | | | Scoliosis [...] | | | | | | [place] OFFICE | | | | | | [...] + + | 07/26/ | Office | [facility] | Romain Darrin | Foraminal stenosis | | 2013 | Visit | NEUROSURGERY [address] | [address] | of lumbar region - | | | | [address] | [address] | left L5-S1 (Primary | | | | [place], [place] | [place] [address] | Dx); Scoliosis of | | | | [address] | [phone] | lumbar spine; Left | | | | [phone] | | lumbar | | | | [...] the MRI was recently pe rformed at [facility] of your lumbar spine. After these tests have been completed we w ill see you back in review the resultsElectronically signed by PEE Somers at 11:54 AM PDT documented in this encounter Progress Notes Darrin Hoyos PA - 07/26/2014 11:13 AM PDTFormatting of this note might be differen t from the original. PEE Vang [address] [facility] [address] [place], [place] [address] FAX: NEUROSURGERY HISTORY AND PHYSICAL EXAMINATION CHIEF [...] ently a also seen a surgeon in [facility] he stated she did not need to have surgery pawel dave to her report. She also reports she had a recent MRI in the [facility] which I do not marcos ve to [...] with short or longwall headgate operator memory. CRANIAL NERVES: II: Acuity is intact. [...] Intrinsics 5 4 Ulnar Intrinsics 5 4 Anode Worker Strength 5 4 Hip Flexion 5 4 [...] | | | | | | [address] [place] | | | | | | [address] | | | | | | | [...]
--- OUTSIDE RECORDS SUMMARY | ~2019-09-28 | XMS | Encounter Summary ---
Demographics + + + | Address | [address] | | | [place] [address] | + + + | Home Phone [...] Team Providers + +------+ + | Care Android Ios Developer Name | Role | Phone | [...] | | | stenosis | B | [address] | | | | | | [place], [place] | Phone: | | | | | | [address] | [phone] | | | | | | Phone: | Fax: | | | | | | [phone] | [phone] | | | | | | Fax: | | | | | | | [phone] | | + +--------+ + + + + Encounter Details +--------+---------+ + + + | Date | Type | Department | Care Team | Description | +--------+---------+ + + + | 06/18/ | Office | [facility] | Denys Sibley, | SACROILIITIS | | 2018 | Visit | [facility] | DO [address] | (Primary Dx); | | | | [address] [place] | 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 Talk to your dynamics ax consultant regarding the use of this medicine [...] phone number of your doctor or health director of patient care and local hospital ready. You may need to have additional doses of this medicine. Each nasal spray contains a single dose. Some emergencies may require additional doses. After use, bring the treated person to the nearest hospital or call 911. Make sure the [facility] health director of patient care knows that the person has received [...] after bladder repair Arthralgia Asthma Asthma Cancer ([facility]) 2004 breast Cerebrovascular accident (CVA) ([facility]) no [...] physical therapy, mass age therapy, acupuncture, career technical supervisor, along with recommended psychological counseling , either privately, or in group sessions offered by private care individuals, community serv ices, or yarsanism organizations. Appropriate referrals were made at patient and/or provider request Narcan was prescribed, when appropriate, and patient instructed in its use for emergency on ly. Patient was given instructions on proper storage and disposal of medications including but not limited to current government regulations regarding this and or current official gov [facility] approved disposal sites. Continue current medication regime with these changes and/ or additions :refill her fenta nyl patch 25 by grams applied to the anterior chest wall q72 hours, and Norco7.5/325 one po q6 hours prn pain Patient understands and is in full agreement with the above plan, Will return to office in 4 weeks, [facility] was consulted and appears appropriate, [...] noted in men and women. [facility] men will suffer erectile dysfunction with [...] complications with the passage of time. superintendent terminal use is also associated with depressions, [...] [place] | | | | | | [address] | | | | | | | | +--------+---------+ + + + + +------+--------+ + + | Name | Type | Priori | Associated Diagnoses | Order Schedule | | | | ty | | | + +------+--------+ + + | Drugs of Abuse, | Lab | Routin | intermediate current | Expected: | | Panel, Pain [...] pain Backache, unspecified | + + | superintendent terminal current use of opiate analgesic Encounter for long-term (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 of | | other medications | + + documented in this encounter
--- OUTSIDE RECORDS SUMMARY | ~2019-09-28 | XMS | Encounter Summary ---
Demographics + + + | Address | [address] | | | [place] [address] | + + + | Home Phone [...] Providers + +------+ + | Care Chemistry Teacher Name | Role | Phone | + +------+ + PCP | Unavailable | + +------+ + Encounter Details +--------+ + + + + | Date | Type | Department | Care Team | Description | +--------+ + + + + | 06/26/ | Respiratory | | Other, Faculty | | | 2006 | Therapy | | [phone] | | +--------+ + + + + [...] RADHA ALONZO | [address] | [place], [place] | | | DIAGNOSTICS - | [place] | [address] | | | PULMONARY FUNCTION | | | | + + + + + documented in this encounter Visit Diagnoses Not on filedocumented in this encounter"
--- OUTSIDE RECORDS SUMMARY | ~2019-09-28 | XMS | Encounter Summary ---
Demographics + + + | Address | [address] | | | [place] [address] | + + + | Home Phone [...] Team Providers + +------+ + | Care Pasteurizing Supervisor Name | Role | Phone | + +------+ + | Wendi Aiken | PCP | | + +------+ + Encounter Details +--------+ + + + + | Date | Type | Department | Care Team | Description | +--------+ + + + + | 12/28/ | Hospital | [facility] | Conversion | Diagnosis unknown | | 2018 | Encounter | CONVERSION [address] | Transaction, | | | | | [address] | Provider Unknown | | | | | [place], [place] | [phone] | | | | | [address] | | | | | | [phone] | | | +--------+ + + + [...] [place] | | | | | | [address] | | | | | | | | +--------+---------+ + + + documented as of this encounter Procedures + +--------+ + + + | Procedure Name | Priori | Date/Time | Associated Diagnosis | Comments | | | ty | | | | + +--------+ + + + | XR LUMBAR SPINE 2 OR | Routin | 10/14/2018 | | Results for this | | 3 VW | e | 11:35 PM | | procedure are in the | | | | PST | | results section. | + +--------+ + + + documented in this encounter Results XR Lumbar Spine 2 or 3 Vw (10/14/2018 11:35 PM PST) + + | Specimen | [...]
--- OUTSIDE RECORDS SUMMARY | ~2019-09-28 | XMS | Encounter Summary ---
Demographics + + + | Address | [address] | | | [place] [address] | + + + | Home Phone [...] Providers + +------+ + | Care Equipment Analyst Name | Role | Phone | [...] + + | 04/17/ | Telephone | [facility] | Nick Martinez, | Other (Back Brace) | | 2017 | | PHYSIATRY [address] | PA-C [address] | | | | | [place], | [address] [place] | | | | | [place] [address] | [place] [address] | | | | | [phone] | [phone] | | | | | | | [...] [place] | | | | | | [address] | | | | | | | | +--------+---------+ + + + documented as of this encounter Visit Diagnoses Not on filedocumented in this encounter"
--- OUTSIDE RECORDS SUMMARY | ~2019-09-28 | XMS | Encounter Summary ---
Demographics + + + | Address | [address] | | | [place] [address] | + + + | Home Phone [...] Team Providers + +------+ + | Care Iron Assorter Name | Role | Phone | + +------+ + | Wendi Aiken | PCP | | + +------+ + Encounter Details +--------+ + + + + | Date | Type | Department | Care Team | Description | +--------+ + + + + | 12/28/ | Hospital | [facility] | Conversion | Diagnosis unknown | | 2018 | Encounter | CONVERSION [address] | Transaction, | | | | | [address] | Provider Unknown | | | | | [place], [place] | [phone] | | | | | [address] | | | | | | [phone] | | | +--------+ + + + [...] [place] | | | | | | [address] | | | | | | | [...]
--- OUTSIDE RECORDS SUMMARY | ~2019-09-28 | XMS | Encounter Summary ---
Demographics + + + | Address | [address] | | | [place] [address] | + + + | Home Phone [...] Team Providers + +------+ + | Care Experimental Machining Lab Manager Name | Role | Phone | + +------+ + | Concepción Gallardo NP | PCP | | + +------+ + Reason for Visit + + + | Reason | Comments | + + + | Records Request | MRI OF LUMBAR SPINE | + + + Encounter Details +--------+ + + + + | Date | Type | Department | Care Team | Description | +--------+ + + + + | 07/26/ | Telephone | [facility] | Darrin Hoyos | Records Request (MRI | | 2013 | | NEUROSURGERY [address] | [address] | OF LUMBAR SPINE) | | | | [address] | [address] | | | | | [place], [place] | [place] [address] | | | | | [address] | [phone] | | | | | [phone] | | | +--------+ + + + [...] [place] | | | | | | [address] | | | | | | | | +--------+---------+ + + + documented as of this encounter Visit Diagnoses Not on filedocumented in this encounter"
--- OUTSIDE RECORDS SUMMARY | ~2019-09-28 | XMS | Encounter Summary ---
Demographics + + + | Address | [address] | | | [place] [address] | + + + | Home Phone [...] Team Providers + +------+ + | Care Visual Artist Name | Role | Phone | [...] at [facility] [address] | | Change: Effective | | | | Mcadams Brittany Mailcode: | | October 31 | | | | [address] | | | | | | Health and Healing, | | | | | | | | | | | | floor [place], [place] | | | | | | [address] | | | | | | [phone] | | | +--------+ + + + [...]
--- OUTSIDE RECORDS SUMMARY | ~2019-09-28 | XMS | Encounter Summary ---
Demographics + + + | Address | [address] | | | [place] [address] | + + + | Home Phone [...] Providers + +------+ + | Care Manager Social Responsibility Name | Role | Phone | + [...] + + | 07/05/ | Telephone | [facility] | Maykel Hutchins MD | Advice Only; Other | | 2019 | | [facility] | [address] | (inform office) | | | | ORTHOPEDIC SPINE | HAYLEY SANCHEZ | | | | | [address] [place] | [place] [address] | | | | | [place] | [phone] | | | | | [address] | | | | | | [phone] | | | +--------+ + + + [...] [place] | | | | | | [address] | | | | | | | [...]
--- OUTSIDE RECORDS SUMMARY | ~2019-09-28 | XMS | Encounter Summary ---
Demographics + + + | Address | [address] | | | [place] [address] | + + + | Home Phone [...] Team Providers + +------+ + | Care Supervisor Pre Wave Name | Role | Phone | + +------+ + | Wendi Aiken | PCP | | + +------+ + Encounter Details +--------+ + + + + | Date | Type | Department | Care Team | Description | +--------+ + + + + | 06/07/ | Hospital | [facility] | Conversion | | | 2018 | Encounter | [facility] | Transaction, | | | | | CLINIC [address] | Provider Unknown | | | | | [place], [place] | | | | | | [address] | (Fax) | | | | | [phone] | | | +--------+ + + + [...] [place] | | | | | | [address] | | | | | | | | +--------+---------+ + + + documented as of this encounter Procedures + +--------+ + + + | Procedure Name | Priori | Date/Time | Associated Diagnosis | Comments | | | ty | | | | + +--------+ + + + | EXTERNAL LAB: [facility] | Routin | 06/07/2018 | | Results [...] documented in this encounter Results External Lab: [facility] (06/07/2018 3:01 PM PDT) + + + [...] + + + | RED CELL | 4.30 | 3.70 - 5.10 | EXTERNAL | | | COUNT | | M/uL | LAB | | + + + + + + | Hgb | 12.4 | 11.3 - 15.5 | [...] | | | Basophils | performed at [facility], [address] | K/uL | LAB | | | | [address], | | | | | | [place] [address] | | | | + + + [...] | | | | | performed at [facility], [address] | | | | | | [facility], | | | | | | [place] [address] | | | | + + + [...]
--- OUTSIDE RECORDS SUMMARY | ~2019-09-28 | XMS | Encounter Summary ---
Demographics + + + | Address | [address] | | | [place] [address] | + + + | Home Phone [...] Team Providers + +------+ + | Care Wound/Ostomy Nurse Name | Role | Phone | [...] + + | 07/19/ | Telephone | [facility] | Gabi Guzman | Imaging Only | | 2019 | | [facility] | [address] | | | | | ORTHOPEDIC SPINE | [address] | | | | | [address] | [place] [address] | | | | | [place], [place] | [phone] | | | | | [address] | | | | | | [phone] | | | +--------+ + + + [...] [place] | | | | | | [address] | | | | | | | | +--------+---------+ + + + documented as of this encounter Visit Diagnoses Not on filedocumented in this encounter"
--- OUTSIDE RECORDS SUMMARY | ~2019-09-28 | XMS | Encounter Summary ---
Demographics + + + | Address | [address] | | | [place] [address] | + + + | Home Phone [...] Team Providers + +------+ + | Care Systems Engineer Name | Role | Phone | + +------+ + | Miquel Calhoun MD | PCP | | + +------+ + Encounter Details +--------+ + + + + | Date | Type | Department | Care Team | Description | +--------+ + + + + | 10/18/ | Hospital | [facility] | Shay Dietz | | | 2012 | Encounter | MED CTR XRAY [address] | [address], [address] | | | | | [place] | [address] [facility] [place], [place] | | | | | [place] [address] | [address] | | | | | [phone] | | | +--------+ + + + [...] [place] | | | | | | [address] | | | | | | | [...] At | + + + | [facility] | [facility] | | Department [address] [facility], [place] | [facility] | | [ rep [address]] [ rep [facility] | | st zip] Signed | - IMAGING | | | | | Patient Name: KORI HARMON | | | Physician: OMID : [id number] Age: 68 Sex: F Unit | | | #: [id number] Exam Date: 10/18/13 Location: | | | IMG.INV Report #: [id number] Page: | | | %(RAD)RES..mtdd.print.filter("pg") of %(RAD) | | | RES..mtdd.print.filter("tpg") | | | | | | Accession Number: [id number] | | | LUMBAR MEDIAL BRANCH BLOCKS, [...] Transcribed Date/Time: | | | 10/18/2013 19:14 Granulating Blender: | | | <<Signature on File>> | | | Shay Mukherjee | | | MD J Luis10/22/13 0756 <Electronically signed by Shay Mukherjee | | | J Luis SALGADO> Shay Dietz MD 10/18/13 3623 | | | Granulating Blender: Yudelka Lldncshljrblw88/19/13 5141 | | | PROVIDER,UNKNOWN | | + + + + + + + + | Performing | Address | City/State/Zipcode | Phone Number | | Organization | | | | + + + + + | [facility] | [address] | [place] | [phone] | | [facility] | | [address] | | | - IMAGING | | | | + + + + + documented in this encounter Visit Diagnoses Not on filedocumented in this encounter
--- OUTSIDE RECORDS SUMMARY | ~2019-09-28 | XMS | Encounter Summary ---
Demographics + + + | Address | [address] | | | [place] [address] | + + + | Home Phone | | + + + | Preferred Language | Unknown | + + + | Marital Status | | + + + | Confucianism Affiliation | 1013 | + + + | Race | Unknown | + + + | Ethnic Group | Unknown | + + + Author + + + | Author | [facility] | | | and Priteshana | + + + | Organization | [facility] | | | [...] Team Providers + +------+ + | Care Cupola Patcher Helper Name | Role | Phone | + +------+ + | No, Physician | PCP | Unavailable | + +------+ + Encounter Details +--------+ + + + + | Date | Type | Department | Care Team | Description | +--------+ + + + + | 01/03/ | [facility] | Shay Dietz | | | 2013 | Encounter | MED CTR XRAY [address] | [address] | | | | | [place] | [address] [place] | | | | | [place] [address] | [address] | | | | | [phone] | | | +--------+ + + + [...] [place] | | | | | | [address] | | | | | | | | +--------+---------+ + + + documented as of this encounter Visit Diagnoses Not on filedocumented in this encounter"
--- OUTSIDE RECORDS SUMMARY | ~2019-09-28 | XMS | Encounter Summary ---
Demographics + + + | Address | [address] | | | [place] [address] | + + + | Home Phone [...] + + + | Author | [facility] | + + + | Organization | [facility] | + + + | Address | Unknown | + + + | Phone | Unavailable | + + + Support + + +---------+ + | Name | Relationship | Address | Phone | + + +---------+ + | Royce Menchaca | ECON | Unknown | | + + +---------+ + Care Team Providers + +------+ + | Care Excavator Backhoe Operator Name | Role | Phone | [...] | | [facility] | REHABILITATION PSYCHOLOGIST [place], [place] | | | | | [address] | [address] | | | | | [address] | | | | | | [address] [address] | | | | | | [place], [place] | | | | | | [address] | | | | | | [phone] | | | +--------+ + + + [...]
--- OUTSIDE RECORDS SUMMARY | ~2019-09-28 | XMS | Encounter Summary ---
Demographics + + + | Address | [address] | | | [place] [address] | + + + | Home Phone [...] Team Providers + +------+ + | Care Car Dispatcher Name | Role | Phone | + +------+ + PCP | Unavailable | + +------+ + Encounter Details +--------+ + + + + | Date | Type | Department | Care Team | Description | +--------+ + + + + | 10/06/ | [facility] | [facility] | Robert Perales | | | 2010 | Encounter | MED CTR SLEEP | MD Eric Rivera [place] | | | | | CENTER [address] [place] | | | | | [place], [place] | [place] [address] | | | | | [address] | [phone] | | | | | [phone] | | | +--------+ + + + [...] [place] | | | | | | [address] | | | | | | | | +--------+---------+ + + + documented as of this encounter Visit Diagnoses Not on filedocumented in this encounter"
--- OUTSIDE RECORDS SUMMARY | ~2019-09-28 | XMS | Encounter Summary ---
Demographics + + + | Address | [address] | | | [place] [address] | + + + | Home Phone [...] Team Providers + +------+ + | Care Digital Asset Manager Name | Role | Phone | [...] + + | 08/05/ | Emergency | [facility] | Dion Richardson | Chronic low back | | 2014 | | MED CTR EMERGENCY | Laz Richards MD | pain (Primary Dx); | | | | CENTER [address] | [address] | Weakness | | | | [place] | [place] | | | | | [address] | [address] | | | | | [phone] | | | +--------+ + + + [...] [place] | | | | | | [address] | | | | | | | [...] [address] | [place] | [phone] | | [facility] | | [address] | | | - LABORATORY | | | | + + + + + | [address] | [address] | [place] | | | [facility] | | [address] | | | - LABORATORY | | [...] [facility] | | | | | | [facility] | | | | | | CENTER [...] + | [address] | [address] | [place] | [phone] | | [facility] | | [address] | | | - LABORATORY | | | | + + + + + | [address] | [address] | [place], [place] | | | [facility] | | [address] | | | - LABORATORY | | [...] (H) | 7 - 18 mg/dL | [facility] | | | | | | [facility] | | | | | | MEDICAL | | | | | | CENTER - | | | | | | LABORATORY | | + + + + + + | Creatinine | 0.75 | 0.60 - 1.30 | [facility] | | | | | mg/dL | [facility] | | | | | | MEDICAL | | | | | | CENTER - | | | | | | LABORATORY | | + + + + + + | eGFR if not | >60Comment: GLOMERULAR | >=60 | [facility] | | | | FILTRATION | mL/min/1.73m2 | [facility] | | | [place] | RATE,ESTIMATED | | MEDICAL | | | | mL/min/1.51b8Ynhz than | | CENTER - | | [...] + | [facility] | [address] | [place], [place] | [phone] | | [facility] | | [address] | | | - LABORATORY | | | | + + + + + | [facility] | [address] | [place], [place] | | | [facility] | | [address] | | | - LABORATORY | | [...] | Basophils | | K/uL | [facility] | | | | [...] + | [facility] | [address] | [place] | [phone] | | [facility] | | [address] | | | - LABORATORY | | | | + + + + + | [facility] | [address] | [place] | | | [facility] | | [address] | | | - LABORATORY | | [...] | | | POC | | | IASI | | | | | | MEDICAL [...] + | [facility] | [address] | [place], [place] | [phone] | | [facility] | | [address] | | | - LABORATORY | | | | + + + + + | [facility] | [address] | [place], [place] | | | [facility] | | [address] | | | - LABORATORY | | [...]
--- OUTSIDE RECORDS SUMMARY | ~2019-09-28 | XMS | Encounter Summary ---
Demographics + + + | Address | [address] | | | [place] [address] | + + + | Home Phone [...] Team Providers + +------+ + | Care Sample Carrier Name | Role | Phone | + [...] | | 2016 | Encounter | at [facility] [address] | [address] | test results | | | | Abbe Soto Mailcode: | [facility] [address], | | | | | [address] | [place] [address] | | | | | [facility], | [phone] | | | | | [place] [address] [facility] | | | | | | floor [place], [place] | | | | | | [address] | | | | | | [phone] | | | +--------+ + + + [...]
--- OUTSIDE RECORDS SUMMARY | ~2019-09-28 | XMS | Encounter Summary ---
Demographics + + + | Address | [address] | | | [place] [address] | + + + | Home Phone [...] Team Providers + +------+ + | Care Labor Training Manager Name | Role | Phone | [...] Provider Unknown | | | | | [place], [place] | | | | | | [address] | (Fax) | | | | | [phone] | | | +--------+ + + + [...] [place] | | | | | | [address] | | | | | | | [...]
--- OUTSIDE RECORDS SUMMARY | ~2019-09-28 | XMS | Encounter Summary ---
Demographics + + + | Address | [address] | | | [place] [address] | + + + | Home Phone [...] Team Providers + +------+ + | Care Rodding Anode Worker Name | Role | Phone | [...] [address] | | | | | [place], | [place], [place] | | | | | [place] [address] | [address] | | | | | [phone] | | | +--------+ + + + [...] [place] | | | | | | [address] | | | | | | | | +--------+---------+ + + + documented as of this encounter Visit Diagnoses Not on filedocumented in this encounter"
--- OUTSIDE RECORDS SUMMARY | ~2019-09-28 | XMS | Encounter Summary ---
Demographics + + + | Address | [address] | | | [place] [address] | + + + | Home Phone [...] Team Providers + +------+ + | Care Presidential Helicopter Crew Chief Name | Role | Phone | + +------+ + | Wendi Aiken | PCP | | + +------+ + Reason for Visit + + + | Reason | Comments | + + + | Results, Imaging | MRI/Cancelled Injection | + + + Encounter Details +--------+ + + + + | Date | Type | Department | Care Team | Description | +--------+ + + + + | 04/06/ | Telephone | [facility] | Nick Martinez, | Results, Imaging | | 2018 | | PHYSIATRY [address] | PA-C [address] | (MRI/Cancelled | | | | [place], | [address] [place] | Injection) | | | | [place] [address] | [place] [address] | | | | | [phone] | [phone] | | | | | | | [...] | | | | | | DRIVE [place], [place] | | | | | | [address] | | | | | | | | +--------+---------+ + + + documented as of this encounter Visit Diagnoses Not on filedocumented in this encounter"
--- OUTSIDE RECORDS SUMMARY | ~2019-09-28 | XMS | Encounter Summary ---
Demographics + + + | Address | [address] | | | [place] [address] | + + + | Home Phone [...] Team Providers + +------+ + | Care Liner Machine Operator Helper Name | Role | [...] + + | 04/25/ | Emergency | [facility] | Billy Romo, | Concussion, without | | 2016 | | HOSPITAL EMERGENCY | [address] | LOC, initial | | | | [place] [address] MEDICAL | [place], | encounter (Primary | | | | [place], [place] | [place] [address] | Dx); Cervical | | | | [address] | [phone] | strain, acute, | | | | [phone] | | initial encounter | +--------+ + [...] sent through Care Everywhere.CERVICAL STRAIN , UNDERSTANDING (CAPE VERDEAN)CONCUSSION, AFTER (CAPE VERDEAN)CONCUSSION, COPING WITH (CAPE VERDEAN)manish disla in this encounter Medications at Time [...] [place] | | | | | | [address] | | | | | | | [...] L?MRN: | | | | | | [id number] | | | [id number] | | | his | | | [...] | | | St. | | | [place] | | | y H. | | [...] | | | St. | | | [place] | | | y | | | [...] | | | n, | | | SENIOR DEVELOPER, | | | SENIOR DEVELOPER | | | Primar | | | [...] Performed At | + + + | [address] | | | [place], [place] [address] | | | NAME: KORI HARMON DATE: 04/25/2017 | | | : 1945 PT GENDER: F ROOM: ER PHYSICIAN: | | | BILLY ROMO PID#: [id number] CC TO: MR#: | | | PROCEDURE: [...] Rad Results In - 04/27/2017 9:10 AM [facility] | | [address] [facility] | | [place], [place] [address] | | | | | | NAME: KORI HARMON DATE: 04/25/2017 | | : 1945 PT GENDER: F ROOM: ER | | PHYSICIAN: BILLY ROMO PID#: [id number] | | CC TO: MR#: | | [...] Performed At | + + + | [address] | | | [place], [place] [address] | | | NAME: KORI HARMON DATE: 04/25/2017 | | | : 1945 PT GENDER: F ROOM: ER PHYSICIAN: | | | BILLY ROMO PID#: [id number] CC TO: MR#: | | | PROCEDURE: [...] Results In - 04/27/2017 9:10 AM PDT [facility] | | [address] [place] [address] | | [place], [place] [address] | | | | | | NAME: KORI HARMON DATE: 04/25/2017 | | : 1945 PT GENDER: F ROOM: ER | | PHYSICIAN: BILLY ROMO PID#: [id number] | | CC TO: MR#: | | [...] | + + + + + | [facility] | [address] | [place] [address] | [phone] | | HOSPITAL LABORATORY | | | [...] 99 | 70 - 110 mg/dL | [facility] | | | | | [facility] | | | | | | [facility]OSPITAL | | | | | | LABORATORY | | + + + + + + | BUN | 21 | 5 - 26 mg/dL | [facility] | | | | | [facility] | | | | | | HOSPITAL | | | | | | LABORATORY | | + + + + + + | Creatinine | 0.83 | >.60-<1.30 | [facility] | | | | | mg/dL | COMMUNITY | | | | | | HOSPITAL | | | | | | LABORATORY | | + + + + + + | eGFR if not | >60Comment: GLOMERULAR | >=60 | [facility] | | | | FILTRATION | mL/min/1.73m2 | [facility] | | | INDONESIAN | RATE,ESTIMATED | | HOSPITAL | | | | mL/min/1.93o3Dgxp than | | LABORATORY | | | [...] | + + + + + | [facility] | [address] | [place] [address] | [phone] | | HOSPITAL LABORATORY | | | | + + + + + CBC with Differential (04/25/2017 7:20 PM PDT) + + + + + + | Component | Value | Ref Range | Performed | Pathologist | | | | | At | Signature | + + + + + + | WBC | 6.1 | >4.5-<11.0 K/uL | [facility] | | | | | | COMMUNITY [...] | + + + + + | [facility] | [address] | [place] [address] | [phone] | | HOSPITAL LABORATORY | | | | + + + + + documented in this encounter Visit Diagnoses + + | Diagnosis | + + | Concussion, without LOC, initial encounter - Primary | + + | Cervical strain, acute, initial encounter | + + documented in this encounter
--- OUTSIDE RECORDS SUMMARY | ~2019-09-28 | XMS | Encounter Summary ---
Demographics + + + | Address | [address] | | | [place] [address] | + + + | Home Phone [...] + | Author | [facility] | + + + | Organization | [facility] | + + + | Address | Unknown | + + + | Phone | Unavailable | + + + Support + + +---------+ + | Name | Relationship | Address | Phone | + + +---------+ + | Royce Menchaca | ECON | Unknown | | + + +---------+ + Care Team Providers + +------+ + | Care Scientist Name | Role | Phone | [...] | | 2016 | Encounter | at [facility] [address] | [address] | [place] | | | | [place] Mailcode: | [facility] [address] [facility] | | | | | [address] | [place] [address] | | | | | Health and Healing, | [phone] | | | | | [place] [address] [facility] | | | | | | floor [place], [place] | | | | | | [address] | | | | | | [phone] | | | +--------+ + + + [...]
--- OUTSIDE RECORDS SUMMARY | ~2019-09-28 | XMS | Encounter Summary ---
Demographics + + + | Address | [address] | | | [place] [address] | + + + | Home Phone [...] Team Providers + +------+ + | Care It Service Manager Name | Role | Phone [...] + + | 04/10/ | Telephone | [facility] | Nick Martinez, | Medication Prior | | 2017 | | PHYSIATRY [address] | PA-C [address] | Authorization | | | | [place], | [address] [place] | (Lidocaine Patch ) | | | | [place] [address] | [place] [address] | | | | | [phone] | [phone] | | | | | | | [...] [place] | | | | | | [address] | | | | | | | | +--------+---------+ + + + documented as of this encounter Visit Diagnoses Not on filedocumented in this encounter"
--- OUTSIDE RECORDS SUMMARY | ~2019-09-28 | XMS | Encounter Summary ---
Demographics + + + | Address | [address] | | | [place] [address] | + + + | Home Phone [...] Providers + +------+ + | Care Supervisor Asbestos Removal Name | Role | Phone | + [...] | | [address] | [place] [address] | | | | | [place] | [phone] | | | | | [address] | | | | | | [phone] | | | +--------+ + + + [...] [place] | | | | | | [address] | | | | | | | | +--------+---------+ + + + documented as of this encounter Visit Diagnoses Not on filedocumented in this encounter"
--- OUTSIDE RECORDS SUMMARY | ~2019-09-28 | XMS | Encounter Summary ---
Demographics + + + | Address | [address] | | | [place] [address] | + + + | Home Phone [...] Team Providers + +------+ + | Care Staff Physician Name | Role | Phone | + +------+ + | Concepción Gallardo NP | PCP | | + +------+ + Encounter Details +--------+ + + + + | Date | Type | Department | Care Team | Description | +--------+ + + + + | 07/17/ | Hospital | [facility] | Paty, | Intractable low back | | 2014 - | Encounter | [facility] | MD [address] | pain | | | | CLINICAL DECISION | [address] | | | 07/18/ | | [address] | [place] [address] | | | 2013 | | [place], [place] | [phone] | | | | | [address] | | | | | | [phone] | | | +--------+ + + + [...] Date of Service: 07/18/14 1131 Status: Signed Gate Person: Bob Valverde DO (Physician) [facility] Service: Hospitalist Discharge Summary Date of [...] IV Fentanyl, a s well as oral [place] 10's, Zanaflex, Klonopin, and PT was ordered. [...] MRI system. Multiplanar sequences according to a [facility] protocol were acquired without contrast. FINDINGS: There [...] Date of Service: 07/18/14 1310 Status: Signed Gate Person: Nati Mena RN (Registered Nurse) Pt discharged [...] Notes by Nati Mena RN at 07/18/14 9695 Author: Nati Mena RN Service: (none) Author Type: Registered Nurse Filed: 07/18/14 4132 Date of Service: 07/18/14 1245 Status: Signed Gate Person: Nati Mena RN (Registered Nurse) Pt to [...] Date of Service: 07/18/14 1245 Status: Addendum Gate Person: Sj Bender PT (Physical Therapist) Related Notes: [...] Recommended (has FWW) Prior Function Level of [place] Modified independent with functional mobility;Modified independent wi [...] G Codes Mobility: Walking & Moving Around: $[id number] Current Status : CK - At least 40% but less than 60% impaired, limited or restricted $G8925 Projected Goal Status : CK - At [...] 0549 Date of Service: 07/18/14509 Status: Signed Gate Person: Dion Goldsmith RN (Registered Nurse) 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 ALUMNI RELATIONS MANAGER reports pt woke up to ask what her blood pressure is. Pt sleepin g now. Plan to recheck B/P in an hour. onver hiren Akosua, Provider Unknown - 07/18/2014 3:29 AM PDT Progress Notes by Sofi Sol RPH at 07/18/14328 Author: Sofi Sol RPH Service: (none) Author Type: Pharmacist Filed: 07/18/14328 Date of Service: 07/18/14328 Status: Signed Gate Person: Sofi Sol RPH (Pharmacist) Clinical Pharmacy Note: [...] | | | | | [address] [place] | | | | | | [address] | | | | | | | [...] | | | Fingerstick | performed at [facility];[employer] | | LAB | | | | [address];[place], [place] | | | | | | [address] | | | | + + + [...] | | | Fingerstick | performed at [facility];[address] | | LAB | | | | [address];[place] | | | | | | [address] | | | | + + + [...] EXTERNAL | | | | performed at [facility], [address] | | LAB | | | | [address], | | | | | | [place] [address] | | | | + + + + + + | RED CELL | 4.16Comment: Testing | 3.70 - 5.10 | EXTERNAL | | | COUNT | performed at [facility], [address] | M/uL | LAB | | | | [address], | | | | | | [place] [address] | | | | + + + + + + | Hgb | 11.6Comment: Testing | 11.3 - 15.5 | EXTERNAL | | | | performed at [facility], [address] | g/dL | LAB | | | | [address], | | | | | | [place] [address] | | | | + + + + + + | Hematocrit, | 36.4Comment: Testing | 34.0 - 46.0 % | EXTERNAL | | | POC | performed at [facility], [address] | | LAB | | | | [address], | | | | | | [place] [address] | | | | + + + + + + | MCV | 87.5Comment: Testing | 80.0 - 100.0 fl | EXTERNAL | | | | performed at [facility], [address] | | LAB | | | | [address], | | | | | | [place] [address] | | | | + + + + + + | MCH | 27.9Comment: Testing | 27.0 - 34.0 pg | EXTERNAL | | | | performed at [facility], [address] | | LAB | | | | [address], | | | | | | [place] [address] | | | | + + + + + + | MCHC | 31.9 (L)Comment: Testing | 32.0 - 35.5 | EXTERNAL | | | | performed at [facility], [address] | g/dL | LAB | | | | [address], | | | | | | [place] [address] | | | | + + + + + + | RDW-CV | 43.8Comment: Testing | 37 - 53 fl | EXTERNAL | | | | performed at [facility], [address] | | LAB | | | | [address], | | | | | | [place] [address] | | | | + + + + + + | Platelet | 244Comment: Testing | 150 - 400 K/uL | EXTERNAL | | | Count | performed at [facility], [address] | | LAB | | | Plasma | [address], | | | | | | [place] [address] | | | | + + + + + + | MPV | 8.3Comment: Testing | fl | EXTERNAL | | | | performed at [facility], [address] | | LAB | | | | [address], | | | | | | [place] [address] | | | | + + + + + + | Differentia | AUTOMATEDComment: | | EXTERNAL | | | l Type | Testing performed at | | LAB | | | | [facility], [address] | | | | | | [place] | | | | | | [address] | | | | + + + + + + | % Segmented | 40.1Comment: Testing | % | EXTERNAL | | | | performed at [facility], [address] | | LAB | | | Neutrophils | [address], | | | | | | [place] [address] | | | | + + + + + + | % | 48.1Comment: Testing | % | EXTERNAL | | | Lymphocytes | performed at [facility], [address] | | LAB | | | | [address], | | | | | | [place] [address] | | | | + + + + + + | % Monocytes | 9.5Comment: Testing | % | EXTERNAL | | | | performed at [facility], [address] | | LAB | | | | [address], | | | | | | [place] [address] | | | | + + + + + + | % | 1.9Comment: Testing | % | EXTERNAL | | | Eosinophils | performed at [facility], [address] | | LAB | | | | [address], | | | | | | [place] [address] | | | | + + + + + + | % Basophils | 0.4Comment: Testing | % | EXTERNAL | | | | performed at [facility], [address] | | LAB | | | | [address], | | | | | | [place] [address] | | | | + + + + + + | Absolute | 2.0Comment: Testing | 1.9 - 7.4 K/uL | EXTERNAL | | | Segmented | performed at [facility], [address] | | LAB | | | Neutrophils | [address], | | | | | | [place] [address] | | | | + + + + + + | Absolute | 2.4Comment: Testing | 1.0 - 3.9 K/uL | EXTERNAL | | | Lymphocytes | performed at [facility], [address] | | LAB | | | | [address], | | | | | | [place] [address] | | | | + + + + + + | Absolute | 0.5Comment: Testing | 0 - 0.8 K/uL | EXTERNAL | | | Monocytes | performed at [facility], [address] | | LAB | | | | [address], | | | | | | [place] [address] | | | | + + + + + + | Absolute | 0.1Comment: Testing | 0 - 0.5 K/uL | EXTERNAL | | | Eosinophils | performed at [facility], [address] | | LAB | | | | [address], | | | | | | [place] [address] | | | | + + + + + + | Absolute | 0.0Comment: Testing | 0 - 0.1 K/uL | EXTERNAL | | | Basophils | performed at [facility], [address] | | LAB | | | | [address], | | | | | | [place] [address] | | | | + + + [...] + + + + | TSI | 2.51Comment: Testing | 0.40 - 5.00 | EXTERNAL | | | | performed at [facility], [address] | uIU/mL | LAB | | | | [address], | | | | | | [place] [address] | | | | + + + [...] EXTERNAL | | | | performed at [facility], [address] | | LAB | | | | [address], | | | | | | [place] [address] | | | | + + + [...] | | | | | [place] [address] | | | | + + + [...] + + | Hemoglobin | 5.2Comment: The Afghan | 4.0 - 6.0 % | EXTERNAL [...] | | | | | performed at [facility], [address] | | | | | [address], | | | | | | [place] [address] | | | | + + + [...] | | | | | performed at [facility], [address] | | | | | | [address], | | | | | | [place] [address] | | | | + + + [...] | | | Direct | performed at [facility], [address] | | LAB | | | | [address], | | | | | | [place] [address] | | | | + + + [...] | | | | | [place] [address] | | | | + + + + + + | K | 4.0Comment: Testing | 3.5 - 4.9 | EXTERNAL | | | | performed at [facility], [address] | mmol/L | LAB | | | | [address], | | | | | | [place] [address] | | | | + + + + + + | Cl | 106Comment: Testing | 99 - 109 mmol/L | EXTERNAL | | | | performed at [facility], [address] | | LAB | | | | [address], | | | | | | [place] [address] | | | | + + + + + + | CO2 | 28Comment: Testing | 23 - 32 mmol/L | EXTERNAL | | | | performed at [facility], [address] | | LAB | | | | [address], | | | | | | [place] [address] | | | | + + + + + + | Anion Gap | 8Comment: Testing | 5 - 20 mmol/L | EXTERNAL | | | | performed at [facility], [address] | | LAB | | | | [address], | | | | | | [place] [address] | | | | + + + + + + | Glucose, | 82Comment: Testing | 65 - 99 mg/dL | EXTERNAL | | | Fasting | performed at [facility], [address] | | LAB | | | | [address], | | | | | | [place] [address] | | | | + + + + + + | BUN | 18Comment: Testing | 8 - 25 mg/dL | EXTERNAL | | | | performed at [facility], [address] | | LAB | | | | [address], | | | | | | [place] [address] | | | | + + + + + + | Creatinine | 0.61Comment: Testing | 0.50 - 1.00 | EXTERNAL | | | | performed at [facility], [address] | mg/dL | LAB | | | | [address], | | | | | | [place] [address] | | | | + + + + + + | BUN/Creatin | 30Comment: Testing | | EXTERNAL | | | ine Ratio | performed at [facility], [address] | | LAB | | | | [address], | | | | | | [place] [address] | | | | + + + + + + | Calcium | 8.7Comment: Testing | 8.5 - 10.2 | EXTERNAL | | | | performed at [facility], [address] | mg/dL | LAB | | | | [address], | | | | | | [place] [address] | | | | + + + + + + | Protein, | 5.9 (L)Comment: Testing | 6.3 - 8.2 g/dL | EXTERNAL | | | Total | performed at [facility], [address] | | LAB | | | | [address], | | | | | | [place] [address] | | | | + + + + + + | Albumin | 3.7Comment: Testing | 3.3 - 4.8 g/dL | EXTERNAL | | | | performed at [facility], [address] | | LAB | | | | [address], | | | | | | [place] [address] | | | | + + + + + + | Globulin | 2.2Comment: Testing | 1.3 - 4.9 g/dL | EXTERNAL | | | | performed at [facility], [address] | | LAB | | | | [address], | | | | | | [place] [address] | | | | + + + + + + | A/G Ratio | 1.7Comment: Testing | 1.0 - 2.4 | EXTERNAL | | | | performed at [facility], [address] | | LAB | | | [address], | | | | | | [place] [address] | | | | + + + + + + | Bilirubin | 0.3Comment: Testing | 0.1 - 1.5 mg/dL | EXTERNAL | | | Total | performed at [facility], [address] | | LAB | | | | [address], | | | | | | [place] [address] | | | | + + + + + + | ALP, | 86Comment: Testing | 35 - 115 U/L | EXTERNAL | | | External | performed at [facility], [address] | | LAB | | | | [address], | | | | | | [place] [address] | | | | + + + + + + | AST | 162 (H)Comment: Testing | 10 - 45 U/L | EXTERNAL | | | | performed at [facility], [address] | | LAB | | | | [address], | | | | | | [place] [address] | | | | + + + + + + | ALT | 112 (H)Comment: Testing | 10 - 65 U/L | EXTERNAL | | | | performed at [facility], [address] | | LAB | | | | [address], | | | | | | [place] [address] | | | | + + + [...] | | | | | | at [facility], [address] | | | | | | [address], | | | | | | [place] [address] | | | | + + + [...] | | | Fingerstick | performed at [facility] [place];[address] | | LAB | | | | [address];[place] | | | | | | [id number] | | | | + + + [...] 1:42 PM PDT [facility] | | LUMBAR SPINE WO CONTRAST07/17/2014 9:56 [...] At | + + + | KORI WAYNEFAWTHRLEIGHANN 1945 MRI THORACIC SPINE WO CONTRAST | [...]
--- OUTSIDE RECORDS SUMMARY | ~2019-09-28 | XMS | Encounter Summary ---
Demographics + + + | Address | [address] | | | [place] [address] | + + + | Home Phone | | + + + | Preferred Language | Unknown | + + + | Marital Status | Single | + + + | Pentecostal Affiliation | NON | + + + | Race | White | + + + | Ethnic Group | Not or | + + + Author + + + | Author | [facility] | + + + | Organization | [facility] | + + + | Address | Unknown | + + + | Phone | Unavailable | + + + Support + + +---------+ + | Name | Relationship | Address | Phone | + + +---------+ + | Royce Menchaca | ECON | Unknown | | + + +---------+ + Care Team Providers + +------+ + | Care Kersey Department Supervisor Name | Role | Phone | [...] | | 2015 | Encounter | at [facility] [address] | [address] | havea problem with | | | | Abbe Soot Mailcode: | [address] [facility], | my heart. | | | | [address] | [place] [address] | | | | | Health and Healing, | [phone] | | | | | [facility] | | | | | | floor [place], [place] | | | | | | [address] | | | | | | [phone] | | | +--------+ + + + [...]
--- OUTSIDE RECORDS SUMMARY | ~2019-09-28 | XMS | Encounter Summary ---
Demographics + + + | Address | [address] | | | [place] [address] | + + + | Home Phone [...] Team Providers + +------+ + | Care Septic Tank Servicer Name | Role | Phone | + [...] | [address] | [place] [address] | (Primary Dx); DISC | | | | [place], [place] | [phone] | DISEASE, LUMBAR; | | | | [address] | | Back pain, | | | | [phone] | | unspecified back | | | [...] [place] | | | | | | [address] | | | | | | | [...]
--- OUTSIDE RECORDS SUMMARY | ~2019-09-28 | XMS | Encounter Summary ---
Demographics + + + | Address | [address] | | | [place] [address] | + + + | Home Phone [...] Team Providers + +------+ + | Care Sap Basis Consultant Name | Role | Phone | [...] | region | [address] | AV [place], | | | | | Chronic low | [place], [place] | [place] [address] | | | | | back pain | [address] | Phone: | | | | | Facet | Phone: | [phone] | | | | | arthritis of | [phone] | Fax: | | | | | lumbar | Fax: | [phone] | | | | | region | [phone] | | | | | | Scoliosis [...] | | | | | | OR OFFICE | | | | | | [...] lumbar region - | | | | [place], | [address] [place], | left L5-S1 (Primary | | | | [place] [address] | [place] [address] | Dx); Chronic low | | | | [phone] | [phone] | back pain; Facet | | | [...] [place] | | | | | | [address] | | | | | | | [...]
--- OUTSIDE RECORDS SUMMARY | ~2019-09-28 | XMS | Encounter Summary ---
Demographics + + + | Address | [address] | | | [place] [address] | + + + | Home Phone [...] Team Providers + +------+ + | Care Aluminum Container Tester Name | Role | Phone | + +------+ + | Wendi Aiken | PCP | | + +------+ + Encounter Details +--------+ + + + + | Date | Type | Department | Care Team | Description | +--------+ + + + + | 06/13/ | Hospital | [facility] | SonjaAlfredo DO | Closed compression | | 2018 | Encounter | MEDICAL CENTER | [address] | fracture of fifth | | | | CLINICAL DECISION | [place] [address] | lumbar vertebra, | | | | [address] | [phone] | initial encounter | | | | [place], [place] | | ([facility]) | | | | [address] | | | | | | [phone] | | | +--------+ + + + [...] 06/13/181408 Date of Service: 06/13/181408 Status: Signed Administration Professional: Cristiane Araujo RN (Registered Nurse) Pt discharge [...] Surgery Author Type: Registered Nurse Filed: 06/13/18 1007 Date of Service: 06/13/18 100 Status: Signed Administration Professional: Kiya Dietrich RN (Registered Nurse) Report given [...] [place] | | | | | | [id number] | | | | | | | [...] | | | Fingerstick | performed at [facility];[address] | | LAB | | | | [address];[place] | | | | | | [address] | | | | + + + [...]
--- OUTSIDE RECORDS SUMMARY | ~2019-09-28 | XMS | Encounter Summary ---
Demographics + + + | Address | [address] | | | [place] [address] | + + + | Home Phone [...] Team Providers + +------+ + | Care Strategic Marketing Specialist Name | Role | Phone | + +------+ + | Wendi Aiken | PCP | | + +------+ + Encounter Details +--------+ + + + + | Date | Type | Department | Care Team | Description | +--------+ + + + + | 05/10/ | Imaging | [facility] | Provider, | | | 2018 | Exam | MED CTR EXTERNAL | [address] | | | | | IMAGING | [address] | | | | | [phone] | [place] [address] | | +--------+ + + + + [...] | | | | | | [address] [facility] | | | | | | [address] | | | | | | | [...]
--- OUTSIDE RECORDS SUMMARY | ~2019-09-28 | XMS | Encounter Summary ---
Demographics + + + | Address | [address] | | | [place] [address] | + + + | Home Phone [...] Providers + +------+ + | Care Solar Energy Engineer Name | Role | Phone | + +------+ + PCP | Unavailable | + +------+ + Encounter Details +--------+ + + + + | Date | Type | Department | Care Team | Description | +--------+ + + + + | 09/22/ | Hospital | [facility] | Shay Dietz | | | 2010 | Encounter | MED CTR XRAY [address] | [address], [address] | | | | | [place] | [place], [place] | | | | | [place] [address] | [address] | | | | | [phone] | | | +--------+ + + + [...] [place] | | | | | | [address] | | | | | | | [...] Performed At | + + + | [facility] Diagnostic Imaging Department | [facility] | | [address] [facility] | [facility] | | LUMBAR FACET INJECTIONS, | DIAG [...] Transcribed Date/Time: | | | 09/22/2011 18:07 Tank House Operator Helper: <Electronically Signed | | | by Shay Dietz MD> 09/27/11 1035 | | + + + + + | Procedure Note | + + | Junior, Rad Conversion - 12/07/2013 4:17 PM [facility] | | Diagnostic Imaging Department [address] [place] [address] | | LUMBAR FACET INJECTIONS, 09/22/2011 CLINICAL [...] 17:09 | |Transcribed Date/Time: 09/22/2011 18:07 | |Tank House Operator Helper: | |<Electronically Signed by Shay Dietz MD> [...]
--- OUTSIDE RECORDS SUMMARY | ~2019-09-28 | XMS | Encounter Summary ---
Demographics + + + | Address | [address] | | | [place] [address] | + + + | Home Phone [...] + + | Author | [facility] | + + + | Organization | [facility] | + + + | Address | Unknown | + + + | Phone | Unavailable | + + + Support + + +---------+ + | Name | Relationship | Address | Phone | + + +---------+ + | Royce Menchaca | ECON | Unknown | | + + +---------+ + Care Team Providers + +------+ + | Care Flame Brazing Machine Operator Name | Role | Phone | + +------+ + | Miquel Calhoun MD | PCP | | + +------+ + Encounter Details +--------+ + + + + | Date | Type | Department | Care Team | Description | +--------+ + + + + | 11/05/ | [facility]phone [facility] | Khushbu Cortez, | | | 2013 | | [facility] | AUTOMOTIVE BRAKE SPECIALIST [place], [place] | | | | | [address] | [address] | | | | | [address] | | | | | | Aravind Hannon | | | | | | [place], [place] | | | | | | [address] | | | | | | [phone] | | | +--------+ + + + [...]
--- OUTSIDE RECORDS SUMMARY | ~2019-09-28 | XMS | Encounter Summary ---
Demographics + + + | Address | [address] | | | [place] [address] | + + + | Home Phone [...] Providers + +------+ + | Care Work Adjustment Instructor Name | Role | Phone | [...] | | [address] | [place] [address] | Foraminal stenosis | | | | [place], [place] | [phone] | of lumbar region - | | | | [address] | | left L5-S1; DDD | | | | [phone] | | (degenerative disc | | | [...] from t manolo phillips. Sj Valdes M.D. [address] [place] [address], [address] [place] [address] FAX: NEUROSURGERY HISTORY AND PHYSICAL EXAMINATION CHIEF [...] has no apparent deficits with short or senior care memory. MOTOR EXAM: (5 IS NORMAL) * Indicates pain limited MUSCLE/ MOVEMENT: RIGHT LEFT Deltoids 5 4+ Biceps 5 5 Triceps 5 5 Wrist Flexion 5 5 Wrist Extension 5 5 Median Intrinsics 5 4 Ulnar Intrinsics 5 4 Wind Field Manager Strength 5 4 Hip Flexion 5 4 [...] | | | | | | [address], [place] | | | | | | [address] | | | | | | | [...]
--- OUTSIDE RECORDS SUMMARY | ~2019-09-28 | XMS | Encounter Summary ---
Demographics + + + | Address | [address] | | | [place] [address] | + + + | Home Phone [...] Providers + +------+ + | Care Senior Vice President Name | Role | Phone | [...] + + | 07/20/ | Telephone | [facility] | Maykel Hutchins MD | Procedure (Question) | | 2019 | | NEUROSCIENCE CENTER | [address] | | | | | ORTHOPEDIC SPINE | [place] | | | | | [address] [place] | [place] [address] | | | | | [place] | [phone] | | | | | [address] | | | | | | [phone] | | | +--------+ + + + [...] [place] | | | | | | [address] | | | | | | | | +--------+---------+ + + + documented as of this encounter Visit Diagnoses Not on filedocumented in this encounter"
--- OUTSIDE RECORDS SUMMARY | ~2019-09-28 | XMS | Encounter Summary ---
Demographics + + + | Address | [address] | | | [place] [address] | + + + | Home Phone [...] Providers + +------+ + | Care Nuclear Reactor Technician Name | Role | Phone | [...] + + | 05/01/ | Office | [facility] | Shay Dietz | BACK PAIN, LUMBAR | | 2012 | Visit | PHYSIATRY [address] | [address] | (Primary Dx); DISC | | | | Mobile [place], | [place], [place] | DISEASE, LUMBAR; | | | | [place] [address] | [address] | OSTEOARTHRITIS, | | | | [phone] | | LUMBOSACRAL SPINE | +--------+---------+ + [...] - 05/01/2013 11[facility] your [facility] [...] off ice. Please also provide a driver supervisor to take you home on the day [...] the most recent injection was performed by hi on 11/09/2012. She reports good relief with [...] a letter to the caregivers [facility] the [facility] to allow them to give [...] | | | | | | [facility] [place] | | | | | | [address] [...]
--- OUTSIDE RECORDS SUMMARY | ~2019-09-28 | XMS | Encounter Summary ---
Demographics + + + | Address | [address] | | | [place] [address] | + + + | Home Phone [...] Team Providers + +------+ + | Care Adobe Flex Developer Name | Role | Phone | [...] + + | 08/16/ | Office | [facility] | Gabi Guzman | S/P insertion of | | 2019 | Visit | NEUROSCIENCE CENTER | [address] | spinal cord | | | | ORTHOPEDIC SPINE | [address] | stimulator (Primary | | | | [address] | [place] [address] | Dx); DDD | | | | [place], [place] | [phone] | (degenerative disc | | | | [address] | | disease), lumbar; | | | | [phone] | | Facet arthritis of | | [...] accompanied by her friend, and the Akhtar credit and collections representative for the spinal cord stimulator, f [...] non-medical: Not on file Occupational History Occupation: [employer] Tobacco Use Smoking status: Never Smoker Smokeless [...] Procedure: KYPHOPLASTY; Surgeon: Alfredo Casillas DO; Location: [facility] OR; Service: Pa in Management; [...] Date Acid reflux disease Acute renal failure ([facility]) April 2013 Adverse effect of anesthesia hx hallucinations after anesthesia x 3 yrs ago. Anesthesia hallucinated after bladder repair Arthralgia Arthritis Asthma Asthma Back pain Cancer ([facility]) 2005 breast Cataract Cerebrovascular accident (CVA) ([facility]) no per pt Chronic back pain Chronic back pain Chronic constipation Concussion 07/2015 Preceeded by seizure Constipation COPD (chronic obstructive pulmonary disease) ([facility]) Degenerative disc disease Depression Depression Diabetes mellitus ([facility]) Diabetes mellitus, type 2 ([facility]) diet controlled Diabetes type 2, [...] patient will follow up with Dr. Alfredo aCsillas in 4 to 6 weeks. Barring any [...] [place] | | | | | | [address] | | | | | | | [...]
--- OUTSIDE RECORDS SUMMARY | ~2019-09-28 | XMS | Encounter Summary ---
Demographics + + + | Address | [address] | | | [place] [address] | + + + | Home Phone [...] Team Providers + +------+ + | Care Spring Layer Name | Role | Phone | + +------+ + PCP | Unavailable | + +------+ + Encounter Details +--------+ + + + + | Date | Type | Department | Care Team | Description | +--------+ + + + + | 10/31/ | Hospital | [facility] | | | | 1999 - | Encounter | MED CTR CANCER | | | | | | [address] [address] | | | | 03/16/ | | [place], [place] | | | | 2000 | | [address] | | | | | | [phone] | | | +--------+ + + + [...] [place] | | | | | | [address] | | | | | | | | +--------+---------+ + + + documented as of this encounter Visit Diagnoses Not on filedocumented in this encounter"
--- OUTSIDE RECORDS SUMMARY | ~2019-09-28 | XMS | Encounter Summary ---
Demographics + + + | Address | [address] | | | [place] [address] | + + + | Home Phone [...] Team Providers + +------+ + | Care Refrigeration Mechanic Helper Name | Role | Phone | [...] + + | 07/19/ | Telephone | [facility] | Gaib Guzman | Imaging Only | | 2019 | | NEUROS[facility]ENCE CENTER | [address] | | | | | ORTHOPEDIC SPINE | [address] | | | | | [address] [place] | [place] [address] | | | | | [place], [place] | [phone] | | | | | [address] | | | | | | [phone] | | | +--------+ + + + [...] [place] | | | | | | [address] | | | | | | | | +--------+---------+ + + + documented as of this encounter Visit Diagnoses Not on filedocumented in this encounter"
--- OUTSIDE RECORDS SUMMARY | ~2019-09-28 | XMS | Encounter Summary ---
Demographics + + + | Address | [address] | | | [place] [address] | + + + | Home Phone [...] Team Providers + +------+ + | Care Basket Operator Name | Role | Phone | [...] [address] | | | | | [place], [place] | [place] [address] | | | | | [address] | [phone] | | | | | [phone] | | | +--------+ + + + [...] [place] | | | | | | [address] | | | | | | | | +--------+---------+ + + + documented as of this encounter Visit Diagnoses Not on filedocumented in this encounter"
--- OUTSIDE RECORDS SUMMARY | ~2019-09-28 | XMS | Encounter Summary ---
Demographics + + + | Address | [address] | | | [place] [address] | + + + | Home Phone [...] Team Providers + +------+ + | Care Supply Chain Technician Name | Role | Phone | + +------+ + PCP | Unavailable | + +------+ + Encounter Details +--------+ + + + + | Date | Type | Department | Care Team | Description | +--------+ + + + + | 12/08/ | Hospital | [facility] | | | | 1994 - | Encounter | MED CTR GENERIC PSY | | | | | | CONV DEPT [address] | | | | 12/18/ | | [place], | | | | 1992 | | [place] [address] | | | | | | [phone] | | | +--------+ + + + [...] [place] | | | | | | [address] | | | | | | | | +--------+---------+ + + + documented as of this encounter Visit Diagnoses Not on filedocumented in this encounter"
--- OUTSIDE RECORDS SUMMARY | ~2019-09-28 | XMS | Encounter Summary ---
Demographics + + + | Address | [address] | | | [place] [address] | + + + | Home Phone [...] Author | [facility] | | | and Priteshana | + + + | Organization | [facility] | | | [...] Providers + +------+ + | Care Instrument Lens Grinder Name | Role | Phone | [...] | | | | | region | [address] | | | | | | | Phone: | | | | | | | [phone] | | | | | | | Fax: | | | | | | | [phone] | | +--------+ + + + + + Reason for Visit + + + | Reason | Comments | + + + | Follow-up | MRI f/u | + + + Encounter Details +--------+---------+ + + + | Date | Type | Department | Care Team | Description | +--------+---------+ + + + | 09/10/ | Office | [facility] | Darrin Hoyos | Scoliosis of lumbar | | 2013 | Visit | NEUROSURGERY [address] | [address] | spine (Primary Dx); | | | | [address] | [address] | Facet arthritis of | | | | [place], [place] | [place] [address] | lumbar region | | | | [address] | [phone] | | | | | [phone] | | | +--------+---------+ + + + [...] t from the original. PEE Vang [address] [facility], [address] [place], [place] [address] FAX: NEUROSURGERY HISTORY AND PHYSICAL EXAMINATION CHIEF [...] a also s een a surgeon in [facility] he stated she did not need to have surgery according to her repo rt. She also reports she had a recent MRI in the [facility] which I do not have to review. [...] apparent deficits with short or custodial memory. CRANIAL NERVES: II: Acuity is intact. [...] Intrinsics 5 4 Ulnar Intrinsics 5 4 Piping Designer Strength 5 4 Hip Flexion 5 4 [...] [place] | | | | | | [address] | | | | | | | [...]
--- OUTSIDE RECORDS SUMMARY | ~2019-09-28 | XMS | Encounter Summary ---
Demographics + + + | Address | [address] | | | [place] [address] | + + + | Home Phone [...] Team Providers + +------+ + | Care Intranet Developer Name | Role | Phone | [...] [address] | | | | | [place], [place] | [place] [address] | | | | | [address] | [phone] | | | | | [phone] | | | +--------+ + + + [...] [place] | | | | | | [address] | | | | | | | | +--------+---------+ + + + documented as of this encounter Visit Diagnoses Not on filedocumented in this encounter"
--- OUTSIDE RECORDS SUMMARY | ~2019-09-28 | XMS | Encounter Summary ---
Demographics + + + | Address | [address] | | | [place] [address] | + + + | Home Phone [...] Team Providers + +------+ + | Care Manufacturing Engineering Manager Name | Role | Phone | [...] Chronic low | [place], | [address] | | | | | back pain | Shay Mukherjee MD | [place], | | | | | Lumbar | [address] | [place] | | | | | radiculopath | [place] | [address] | | | | | y | [place] | Phone: | | | | | Procedures | [address] | [phone] | | | | | MRI Lumbar | Phone: | Fax: | | | | | Spine wo | [phone] | [phone] | | | | | Contrast | Fax: | | | | | | MRI | [phone] | | +--------+--------+ + + + + [...] pain (Primary Dx); | | | | [place], | [address] [place] | Lumbar radiculopathy | | | | [place] [address] | [address] | | | | | [phone] | | | +--------+ + + + [...] [place] | | | | | | [address] | | | | | | | [...] + + | Performing | Address | City[facility] | Phone Number | | Organization | | | | + +---------+ + + | [facility] | | | [phone] | + +---------+ + + | [facility] | | | [phone] | + +---------+ + + documented in this encounter Visit Diagnoses + + | Diagnosis | + + | Chronic low back pain - Primary Lumbago | + + | Lumbar radiculopathy Thoracic or lumbosacral neuritis or radiculitis, unspecified | + + documented in this encounter"
--- OUTSIDE RECORDS SUMMARY | ~2019-09-28 | XMS | Encounter Summary ---
Demographics + + + | Address | [address] | | | [place] [address] | + + + | Home Phone [...] Team Providers + +------+ + | Care Water Pumper Name | Role | Phone | + +------+ + PCP | Unavailable | + +------+ + Encounter Details +--------+ + + + + | Date | Type | Department | Care Team | Description | +--------+ + + + + | 10/06/ | [facility] | [facility] | Robert Perales | | | 2010 | Encounter | MED CTR SLEEP | MD [place] | | | | | CENTER [address] | [address] [place] | | | | | [place], [place] | [place] [address] | | | | | [address] | [phone] | | | | | [phone] | | | +--------+ + + + [...] [place] | | | | | | [address] | | | | | | | | +--------+---------+ + + + documented as of this encounter Visit Diagnoses Not on filedocumented in this encounter"
--- OUTSIDE RECORDS SUMMARY | ~2019-09-28 | XMS | Encounter Summary ---
Demographics + + + | Address | [address] | | | [place] [address] | + + + | Home Phone [...] Team Providers + +------+ + | Care Help Desk Specialist Name | Role | Phone | + +------+ + | Romy De La Paz MD | PCP | | + +------+ + Encounter Details +--------+ + + + + | Date | Type | Department | Care Team | Description | +--------+ + + + + | 07/18/ | Hospital | [facility] | Maykel Hutchins MD | | | 2019 | Encounter | [facility] XRAY | [address] | | | | | [address] | [place], | | | | | [place], [place] | [place] [address] | | | | | [address] | [phone] | | | | | [phone] | | | +--------+ + + + [...] | | | | | | manager long term care current | Responsiveness (May | | | [...] [place] | | | | | | [address] | | | | | | | [...]
--- OUTSIDE RECORDS SUMMARY | ~2019-09-28 | XMS | Encounter Summary ---
Demographics + + + | Address | [address] | | | [place] [address] | + + + | Home Phone [...] Team Providers + +------+ + | Care Corrugated Box Machine Operator Name | Role | Phone | + +------+ + | Romy De La Paz MD | PCP | | + +------+ + Reason for Visit + + + | Reason | Comments | + + + | Back Pain | Severe | + + + Encounter Details +--------+ + + + + | Date | Type | Department | Care Team | Description | +--------+ + + + + | 08/31/ | Telephone | [facility] | Maykel Hutchins MD | Back Pain (Severe) | | 2019 | | [facility]ENCE [facility]ENTER | [address] | | | | | ORTHOPEDIC SPINE | [place] | | | | | [address] [place] | [place] [address] | | | | | [place] | [phone] | | | | | [address] | | | | | | [phone] | | | +--------+ + + + [...] [place] | | | | | | [address] | | | | | | | | +--------+---------+ + + + documented as of this encounter Visit Diagnoses Not on filedocumented in this encounter"
--- OUTSIDE RECORDS SUMMARY | ~2019-09-28 | XMS | Encounter Summary ---
Demographics + + + | Address | [address] | | | [place] [address] | + + + | Home Phone [...] Team Providers + +------+ + | Care Abstractor Name | Role | Phone | + [...] | | [address] | [place] [address] | | | | | [place] | [phone] | | | | | [address] | | | | | | [phone] | | | +--------+ + + + [...] [place] | | | | | | [address] | | | | | | | | +--------+---------+ + + + documented as of this encounter Visit Diagnoses Not on filedocumented in this encounter"
--- OUTSIDE RECORDS SUMMARY | ~2019-09-28 | XMS | Clinical Summary ---
Demographics + + + | Address | [address] | | | [place] [address] | + + + | Home Phone | | + + + | Preferred Language | Unknown | + + + | Marital Status | Single | + + + | Nondenominational Affiliation | NON | + + + [...] Providers + +------+ + | Care Security Investigator Name | Role | Phone | + +------+ + | Oxana Nye | PCP | | + +------+ + Source Comments [facility] is fully live [facility] both [facility] and [facility] & [facility] Allergies + + + + + + [...] MEDICARE | MEDICA | xxxxxxxxxx | | [phone] | [address] | Medica | | | RE A & | | [phone] | re | | | B | | esent | | [place] | | | | | | | | [address] | | + +--------+ +--------+ + +--------+ | [employer] | AARP | xxxxxxxxxx | 07/01/20 | [phone] | [address] | Indemn | | RETIRED PEOPLE | | | 12-Pre | 9 | [address] | ity | | | | | sent | | [place] | | | | | | | | [address] | | + +--------+ +--------+ + +--------+ [...] jose | | | 8 (Home) | [address] | + +--------+ +--------+ + +
--- OUTSIDE RECORDS SUMMARY | ~2019-09-28 | XMS | Encounter Summary ---
Demographics + + + | Address | [address] | | | [place] [address] | + + + | Home Phone [...] Providers + +------+ + | Care Silk Screen Repairer Name | Role | Phone | [...] Required | Rehabilitatio | | Yaneli, | [place] | | | | n | radiculopath | PA-C [address] | [place], | | | | | y Chronic | [address] | [place] [address] | | | | | low back | [place], [place] | Phone: | | | | | pain Facet | [address] | [phone] | | | | | arthritis of | Phone: | Fax: | | | | | lumbar | [phone] | [phone] | | | | | region | Fax: | | | | | | Foraminal | [phone] | | | | | | stenosis [...] + + | 04/17/ | Office | [facility] | Shahnazdanowicz, | Left lumbar | | 2013 | Visit | PHYSIATRY [address] | [address] | radiculopathy | | | | [place], | [facility], | (Primary Dx); | | | | [place] [address] | [place] [address] | Chronic low back | | | | [phone] | [phone] | pain; Facet | | | | [...] of the procedure you must provide a front load trash truck driver to take you home. For [...] me to refill this prescription as her [facility] care provider will not refill [...] has no apparent deficits with short or ocean transportation intermediary memory. She has appropriate fund of knowledge [...] Therapy prescription has been given to the [facility]. 3. I did discussed neuropathic [...] BY: Yaneli Dueñas PA-C, 04/17/2014 SUPERVISING PHYSICIAN: Heribreto Henderson Jr., MD, who was present in [...] [place] | | | | | | [address] | | | | | | | [...] | | Lumbar radiculopathy ICD-9 Code 724.4 Koir Caputo | [facility] | | Joanne presents to the [...] + | [facility] | [address] [place] [address] | [place], [place] | [phone] | | [facility] | | [address] | | | - IMAGING | | [...]
--- OUTSIDE RECORDS SUMMARY | ~2019-09-28 | XMS | Encounter Summary ---
Demographics + + + | Address | [address] | | | [place] [address] | + + + | Home Phone [...] Providers + +------+ + | Care Account Director Name | Role | Phone | [...] | Chest | Referring | [place] [address] | | | | | pressure | Provider Per | [address] | | | | | Procedures | Patient NO | [address] | | | | | [place] NEW | REFERRING | [place], [place] | | | | | PATIENT | PROVIDER PER | [address] Phone: | | | | | LEVEL V [place] | PT | [phone] | | | | | OFFICE/OUTPT | | Fax: | | | | | | | [phone] | | | | | VISIT,EST,LE | [...] | | 2015 | Visit | at [facility] [address] | [address] | unspecified type | | | | Mcadams Brittany Mailcode: | [address] [facility], | (Primary Dx); | | | | [address] | [place] [address] | Palpitations | | | | [facility], | [phone] | | | | | [facility] | | | | | | floor [place], [place] | | | | | | [address] | | | | | | [phone] | | | +--------+---------+ + + + [...] per Dr. Fuchs's note. Tiago Blake DO Hooker Operator Clinical vegetable vendor/ Division of Cardiovascular Medicine Airam Nicole Md - 03/09/2016 3:27 PM PDT [facility] General Cardiology New Patient Evaluation Patient [...] She was then transf erred to [facility] in [facility] where she was put into the [...] every couple of weeks. She comes to [facility] today because she wants a second opinion [...] | + + + + + | [facility] LIPID [facility] | [address] | [place], [place] | | | | [address] | [address] | | + + + + + documented in this encounter Visit Diagnoses + + | Diagnosis | + + | Chest pain, unspecified type - Primary | + + | Palpitations | + + documented in this encounter
--- OUTSIDE RECORDS SUMMARY | ~2019-09-28 | XMS | Encounter Summary ---
Demographics + + + | Address | [address] | | | [place] [address] | + + + | Home Phone [...] Team Providers + +------+ + | Care Cpc Coder Name | Role | Phone | + +------+ + | Oxana Nye | PCP | | + +------+ + Encounter Details +--------+ + + + + | Date | Type | Department | Care Team | Description | +--------+ + + + + | 07/06/ | Hospital | [facility] | Sp[place], | 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 | MED CTR XRAY [address] | [address] | lumbar region | | | | [place] | [place], | without myelopathy | | | | [place] [address] | [place] [address] | or radiculopathy | | | | [phone] | [phone] | (Primary Dx); | | | | | | Chronic right-sided | | | | | Pyrotechnician, [facility] | low back pain with | [...] [place] | | | | | | [address] | | | | | | | [...] Diagnosis: Lumbar Spondylosis ICD-10 Code M47.816 [facility] | | Joanne presents to the fluoroscopy suite for | [facility] | | fluoroscopically-guided bilateral L5-S1 [...] ST. | [address] | [place] | [phone] | | [facility] | | [address] | | | - IMAGING | | [...] | | | | | Other, [facility] 07/06/16 at 1115, | | AM PDT | | | | | For 1 dose, Radiology | | | | | | + +--------+ +-------+------+------+ +---+---+ | | | +---+---+ + +-------+ +------+---+---+ | lidocaine 1% injection 1 mL 1 | Given | 07/06/20 | 1 mL | | | | mL, Other, [facility] 07/06/16 at | | 16 11:03 | [...]
--- OUTSIDE RECORDS SUMMARY | ~2019-09-28 | XMS | Encounter Summary ---
Demographics + + + | Address | [address] | | | [place] [address] | + + + | Home Phone [...] Providers + +------+ + | Care Division Order Analyst Name | Role | Phone | [...] | | 2016 | Encounter | at [facility] [address] | [address] | test results | | | | Abbe Soto Mailcode: | [facility] [address] [place], | | | | | [address] | [place] [address] | | | | | [facility], | [phone] | | | | | [place] [address] [facility] | | | | | | floor [place], [place] | | | | | | [address] | | | | | | [phone] | | | +--------+ + + + [...]
--- OUTSIDE RECORDS SUMMARY | ~2019-09-28 | XMS | Encounter Summary ---
Demographics + + + | Address | [address] | | | [place] [address] | + + + | Home Phone [...] + +------+ + | Care Senior Analyst Programmer Name | Role | Phone [...] | | 2016 | Encounter | at [facility] [address] | [address] [address] [facility] | | | | | Mcadams Brittany Mailcode: | [facility] 60 [place], | | | | | [address] | [place] [address] | | | | | Health and Healing, | [phone] | | | | | [facility] | | | | | | floor [place], [place] | | | | | | [address] | | | | | | [phone] | | | +--------+ + + + [...]
--- OUTSIDE RECORDS SUMMARY | ~2019-09-28 | XMS | Encounter Summary ---
Demographics + + + | Address | [address] | | | [place] [address] | + + + | Home Phone [...] Providers + +------+ + | Care Manager Steel Name | Role | Phone | + [...] | [address] | [place], [place] [address] | | | | | [address] [place], [place] | [place], [place] | | | | | [address] | [address] | | | | | [phone] | | | +--------+ + + + [...] [place] | | | | | | [address] | | | | | | | | +--------+---------+ + + + documented as of this encounter Visit Diagnoses Not on filedocumented in this encounter"
--- OUTSIDE RECORDS SUMMARY | ~2019-09-28 | XMS | Encounter Summary ---
Demographics + + + | Address | [address] | | | [place] [address] | + + + | Home Phone [...] Team Providers + +------+ + | Care Powder Truck Driver Name | Role | Phone | + +------+ + | No, Physician | PCP | Unavailable | + +------+ + Encounter Details +--------+ + + + + | Date | Type | Department | Care Team | Description | +--------+ + + + + | 01/03/ | [facility] | [facility] | Shay Dietz | | | 2013 | Encounter | MED CTR XRAY [address] | T, [address] | | | | | [place] | [place] | | | | | [place] [address] | [address] | | | | | [phone] | | | +--------+ + + + [...] [place] | | | | | | [address] | | | | | | | | +--------+---------+ + + + documented as of this encounter Visit Diagnoses Not on filedocumented in this encounter"
--- OUTSIDE RECORDS SUMMARY | ~2019-09-28 | XMS | Encounter Summary ---
Demographics + + + | Address | [address] | | | [place] [address] | + + + | Home Phone [...] Phone | + + +---------+ + | Guiseppe Menchaca | ECON | Unknown | | + + +---------+ + | Nathalia Js | ECON | Unknown | | + + +---------+ + Care Team Providers + +------+ + | Care Senior Engineer Name | Role | Phone | + +------+ + | Wendi Aiken | PCP | | + +------+ + Encounter Details +--------+ + + + + | Date | Type | Department | Care Team | Description | +--------+ + + + + | 04/06/ | Imaging | [facility] | Provider, | | | 2018 | Exam | MED CTR EXTERNAL | [address] | | | | | IMAGING | Vasquez VALDEZ | | | | | [phone] | [place] [address] | | +--------+ + + + + [...] | | | | | | [address] [facility] | | | | | | [id number] | | | | | | | [...]
--- OUTSIDE RECORDS SUMMARY | ~2019-09-28 | XMS | Encounter Summary ---
Demographics + + + | Address | [address] | | | [place] [address] | + + + | Home Phone [...] Team Providers + +------+ + | Care Launch Commander [employer] Police Name | Role | Phone | [...] [address] | | | | | [place], | [place], [place] | | | | | [place] [address] | [address] | | | | | [phone] | | | +--------+ + + + [...] [place] | | | | | | [address] | | | | | | | | +--------+---------+ + + + documented as of this encounter Visit Diagnoses Not on filedocumented in this encounter"
--- OUTSIDE RECORDS SUMMARY | ~2019-09-28 | XMS | Encounter Summary ---
Demographics + + + | Address | [address] | | | [place] [address] | + + + | Home Phone [...] Team Providers + +------+ + | Care Scene Shifter Name | Role | Phone | + [...] | Cervical | Darrin | [address] | | | | | radiculopath | [address] | [place], | | | | | y | [address] | [place] | | | | | Myelopathy | [address] | [address] | | | | | (HCC) | [place], [place] | Phone: | | | | | Procedures | [address] | [phone] | | | | | MRI Cervical | Phone: | Fax: | | | | | Spine wo | [phone] | [phone] | | | | | Contrast | Fax: | | | | | | | [phone] | | +--------+--------+ + + + + [...] | region | [address] | AV [place], | | | | | Chronic low | [place], [place] | [place] [address] | | | | | back pain | [address] | Phone: | | | | | Facet | Phone: | [phone] | | | | | arthritis of | [phone] | Fax: | | | | | lumbar | Fax: | [phone] | | | | | region | [phone] | | | | | | Scoliosis [...] + + | 07/26/ | Office | [facility] | Romain Darrin | 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 After these tests have been completed we w ill see you back in review the resultsElectronically signed by PEE Somers at 11:54 AM PDT documented in this encounter Progress Notes Darrin Hoyos PA - 07/26/2014 11:13 AM PDTFormatting of this note might be differen t from the original. PEE Vang [address] [facility], [address] [place], [place] [address] FAX: NEUROSURGERY HISTORY AND PHYSICAL EXAMINATION CHIEF [...] ently a also seen a surgeon in [facility] he stated she did not need to have surgery pawel dave to her report. She also reports she had a recent MRI in the [facility] which I do not marcos [...] has no apparent deficits with short or moth exterminator memory. CRANIAL NERVES: II: Acuity is intact. [...] Intrinsics 5 4 Ulnar Intrinsics 5 4 Typesetting Machine Operator/Tender Strength 5 4 Hip Flexion 5 4 [...] | | | | | | [facility] [place] | | | | | | [address] | | | | | | | [...]
--- OUTSIDE RECORDS SUMMARY | ~2019-09-28 | XMS | Encounter Summary ---
Demographics + + + | Address | [address] | | | [place] [address] | + + + | Home Phone [...] Team Providers + +------+ + | Care Is Technician Name | Role | Phone | [...] + + | 08/31/ | Telephone | [facility] | Alfredo Casillas DO | Triage | | 2019 | | [facility] | [address] | | | | | MEDICINE RAD[place] | [place] [address] | | | | | [address] | [phone] | | | | | [place], [place] | | | | | | [address] | | | | | | [phone] | | | +--------+ + + + [...] [place] | | | | | | [address] | | | | | | | | +--------+---------+ + + + documented as of this encounter Visit Diagnoses Not on filedocumented in this encounter"
--- OUTSIDE RECORDS SUMMARY | ~2019-09-28 | XMS | Encounter Summary ---
Demographics + + + | Address | [address] | | | [place] [address] | + + + | Home Phone [...] Team Providers + +------+ + | Care Athletic Equipment Custodian Name | Role | Phone | + [...] | | | [facility] [address] [place], [place] | | | | | [address] | [address] | | | | | [place], [place] | | | | | | [address] | | | | | | [phone] | | | +--------+ + + + [...] [place] | | | | | | [address] | | | | | | | | +--------+---------+ + + + documented as of this encounter Visit Diagnoses Not on filedocumented in this encounter"
--- OUTSIDE RECORDS SUMMARY | ~2019-09-28 | XMS | Encounter Summary ---
Demographics + + + | Address | [address] | | | [place] [address] | + + + | Home Phone [...] Team Providers + +------+ + | Care Dispatcher Ship Pilot Name | Role | Phone | [...] + + | 04/28/ | Emergency | [facility] | Jean-Paul Flowers, | Chronic hip pain, | | 2014 | | MED CTR EMERGENCY | MD [address] | right (Primary Dx); | | | | CENTER [address] | [place] | Chronic low back | | | | [place] | [address] | pain; Frequent falls | | | | [address] | | | | | | [phone] | | | +--------+ + + + [...] Nugent MD - 04/28/2015Follow-up with Isaura from [facility] social work for assistance with home [...] [place] | | | | | | [address] | | | | | | | [...] Procedure Note | + + | Reji Pahceco Results In - 04/28/2015 11:34 AM PDT [...] | ---- | | | 04/28/2015 08:18 [facility] | | | Emergency -Right Hip to Toe 04/23/2015 10:50 [facility]. | | | [facility] 04/13/2015 | | | 07:46 [facility] Emergency | | | -Other chronic [...] | not stated as uncontrolled 04/10/2015 14:37 [facility] -Surgical or [...] | | | | -Dehydration 04/09/2015 10:50 [facility] | | | Urgent Care -History [...] as uncontrolled | | | 04/07/2015 07:45 [facility] | | | Urgent Care -Unspecified [...] in stool 03/26/2015 | | | 07:15 [facility] Emergency | | | -Diabetes mellitus [...] other | | | medications 03/07/2015 10:45 [facility] | | | Urgent Care -Loss [...] of weight | | | 02/17/2015 09:15 [facility] | | | Urgent Care -Dysuria [...] in | | | breast 02/14/2015 09:50 [facility] | | | Urgent Care -Other [...] chronic pain | | | 02/11/2015 09:00 [facility] | | | Urgent Care -Loss [...] ------ --------- 1 0 | | | [facility] 2 | | | 0 [facility] 15 | | | 0 [facility] 18 | | | 0 Total Note: Visits indicate total | | | known visits. [place] Dx are the number of primary diagnoses on | | | the [facility]'s non-emergent dx list. | | | | | | --- SYLVIE has no Care Guidelines for this patient. [place] | | | Prescription Review PDMP Report [...]
--- OUTSIDE RECORDS SUMMARY | ~2019-09-28 | XMS | Encounter Summary ---
Demographics + + + | Address | [address] | | | [place] [address] | + + + | Home Phone [...] Team Providers + +------+ + | Care Wire Lather Name | Role | Phone | + [...] Provider Unknown | | | | | [place], [place] | | | | | | [address] | (Fax) | | | | | [phone] | | | +--------+ + + + [...] [place] | | | | | | [address] | | | | | | | [...]
--- OUTSIDE RECORDS SUMMARY | ~2019-09-28 | XMS | Clinical Summary ---
Demographics + + + | Address | [address] | | | [place] [address] | + + + | Home Phone [...] Providers + +------+ + | Care Farm Adviser Name | Role | Phone | + [...] | | 19 | | | | [facility] [...] Overview: Added automatically from request for surgery [id number] | + + + + + | Spondylosis without myelopathy or radiculopathy, lumbosacral | 03/20/2019 | | region | | + + + + + | Overview: Added automatically from request for surgery [id number] | + + + + + | Chronic bilateral low back pain without sciatica | 03/20/2019 | + + + + + | Overview: Added automatically from request for surgery [id number] | + + + + + | Intervertebral disc disorders with radiculopathy, lumbosacral | 02/25/2019 | | region | | + + + + + | Overview: Added automatically from request for surgery [id number] | + + + + + | Chronic low back pain with sciatica | 02/25/2019 | + + + + + | Overview: Added automatically from request for surgery [id number] | + + + + + | Lumbar region somatic dysfunction | 02/25/2019 | + + + + + | Overview: Added automatically from request for surgery [id number] | + + + + + | Strain of lumbar region | 02/25/2019 | + + + + + | Overview: Added automatically from request for surgery [id number] | + + + + + | Spinal stenosis of lumbosacral region | 02/25/2019 | + + + + + | Overview: Added automatically from request for surgery [id number] | + + + + + | [...] Overview: Added automatically from request for surgery [id number] | | Problem List Docketing Specialist Utility | + + + + + [...] + +---+ + + | Overview: CHRISKeven [id number] Decision | + + + +---+ | [...] | Pain Medicine | Denys Sibley, | Back Pain (Severe | | 2018 [...] office) | +--------+ + + + + from [...] + + | Brother | | | [place] | | | | (Age | | [...] [place] | | | | | | [address] | | | | | | | [...] | | 03/04/ | [id number] | | [id number]: Qty: 1 | ogical | Spine | MEDICAL - | | 2020 | S | | on 08/03/2019 by Cuong, | | Lumbar | MODESTA | | | /[id number] | | MD Maykel at [facility] | Stimul | | | | | 444 | | [facility] | ator | | | [...] | | 11/23/ | [id number] | | [id number]: Qty: 1 on | | | MEDICAL - | | 2020 | S | | 03/28/2019 by Sonja, | | | STJU | | | /[id number] | | DO Alfredo | | | | | | 330 / | + +--------+--------+ +--------+--------+--------+ | Proclaim 5 EliteImplanted: | | N/A: | ST CASEY | | 01/15/ | 3660 | | Qty: 1 on 08/03/2019 by Cuong, | | Spine | MEDICAL - | 2020 | /[id number] | | MD Maykel at [facility] | | Lumbar | STJU | | | 6.1 | | [facility] | | | | | [...] | | | Needs | | | DENTAL HYGIENE INSTRUCTOR | | | reques | | | [...] Last 3 Months Results POC Glucose (08/03/2019 8:39 PM PDT)Only the [...] 65 - 99 mg/dL | [facility] | | | POC | performed at [facility];[address] | | LABORATORY | | | | Rosenda Donnelly;[place] | | | | | | [address] | | | | + + + + + + + + | Specimen | + + | | + + + + + + + | Performing | Address | City/State/Zipcode | Phone Number | | Organization | | | | + + + + + | [facility] | [address] | [place] [address] | [phone] | + + + + + LINSEY [...] Spinal cord stimulator T9 FINDINGS: Fluoro Time: .17 | | | [...] - 08/03/2019 9:52 AM PDT Anesthesia Airway Fdoiytjgc30/4/2019 | | 9:33Preprocedure check: patient identified, oxygen, [...] + + + | BB BAND | [id number] | | [facility] | | | | | | LABORATORY | | + + + + + + | BB BAND | Testing performed at | | [facility] | | | | [facility];[address] | | LABORATORY | | | | Andrzej;[place] [address] | | | | + + + + + + + + | Specimen | + + | Blood | + + + + + + + | Performing | Address | City/State/Zipcode | Phone Number | | Organization | | | | + + + + + | [facility] | [address] | [place] [address] | [phone] | + + + + + XR [...] [facility] | | | | performed at [facility];[address] | | LABORATORY | | | | Rosenda Donnelly;[place] | | | | | | [address] | | | | + + + + + + + + | Specimen | + + | Tissue - Both | | anterior nares (body | | structure) | + + + + + + + | Performing | Address | City/State/Zipcode | Phone Number | | Organization | | | | + + + + + | [facility] | [address] | [place] [address] | [phone] | + + + + + PTT (07/18/2019 2:26 PM PDT) + + + + + + | Component | Value | Ref Range | Performed | Pathologist | | | | | At | Signature | + + + + + + | PTT | 29Comment: Testing | 23 - 32 seconds | AMIRA | | | | performed at [facility];[address] | | LABORATORY | | | | Rosenda Donnelly;[place] | | | | | | [address] | | | | + + + + + + + + | Specimen | + + | Blood | + + + + + + + | Performing | Address | City/State/Zipcode | Phone Number | | Organization | | | | + + + + + | [facility] | [address] | [place] [address] | [phone] | + + + + + Protime [...] | | | | | performed at [facility];[address] | | | | | | Rosenda Donnelly;[place], [place] | | | | | | [address] | | | | + + + + + + + + | Specimen | + + | Blood | + + + + + + + | Performing | Address | City/State/Zipcode | Phone Number | | Organization | | | | + + + + + | [facility] | [address] | [place] [address] | [phone] | + + + + + CBC [...] | | | Absolute | performed at [facility], [address] | K/uL | LABORATORY | | | | Josue Donnelly, | | | | | | [place] [address] | | | | + + + + + + + + | Specimen | + + | Blood | + + + + + + + | Performing | Address | City/State/Zipcode | Phone Number | | Organization | | | | + + + + + | [facility] | [address] | [place] [address] | [phone] | + + + + + Comprehensive [...] | >60Comment: GFR <60: | >60 | [facility] | | | GFR | CHRONIC [...] | | | | | | MDRD IDDE traceable | | | | | | equation.Testing | | | | | | performed at [facility], [address] | | | | | | [facility], | | | | | | [place] [address] | | | | + + + + + + + + | Specimen | + + | Blood | + + + + + + + | Performing | Address | City/State/Zipcode | Phone Number | | Organization | | | | + + + + + | [facility] | [address] | [place] [address] | [phone] | + + + + + ECG [...] REPORT - EXTERNAL SCAN (07/09/2019 12:00 AM PDT)Only the most recent of 3 results w ithin the time period is included. + + [...] +---------+--------+ | INDIVIDUAL ASSURANCE | INDIVI | [id number] | | | | Indemn | | [...] +--------+ +---------+--------+ | MEDICARE | MEDICA | [id number] | | [phone] | | Medica | | | RE | | 991-Pr | 5 | | re | | | PART A | | esent | | | | | | AND B | | | | | | + +--------+ +--------+ +---------+--------+ | MEDICARE | MEDICA | [id number] | | [phone] | | Medica | | | RE | | 991-Pr | 5 | | re | | | PART A | | esent | | | | | | AND B | | | | | | + +--------+ +--------+ +---------+--------+ | MEDICARE | MEDICA | [id number] | | [phone] | | Medica | | | RE | | 991-Pr | 5 | | re | | | PART A | | esent | | | | | | AND B | | | | | | + +--------+ +--------+ +---------+--------+ | MEDICARE | MEDICA | [id number] | | [phone] | | Medica | | | RE | | 991-Pr | 5 | | re | | | PART A | | esent | | | | | | AND B | | | | | | + +--------+ +--------+ +---------+--------+ | INDIVIDUAL ASSURANCE | INDIVI | [id number] | | | | Indemn | | [...] +---------+--------+ | INDIVIDUAL ASSURANCE | INDIVI | [id number] | | | | Indemn | | [...] +---------+--------+ | INDIVIDUAL ASSURANCE | INDIVI | [id number] | | | | Indemn | | [...] [address] | | mandeep Caputo | antonio/Benji | | 1945 | [phone] | [place] [address] | | | jose | | | 8 (Home) | | + +--------+ +--------+ + + | Tyrese Rubio | Person | Self | [birth year] | [address] | | mandeep [place] | al/Fam | | 1945 | [phone] | [place] [address] | | | jose | | | 8 (Home) | | + +--------+ +--------+ + + | Tyrese Rubio | Person | Self | [birth year] | [address] | | mandeep Harshal | al/Fam | | 1945 | [phone] | [place] [address] | | | jose | | | 8 (Home) | | + +--------+ +--------+ + + | Tyrese Rubio | Person | Self | [birth year] | [address] | | mandeep [place] | al/Fam | | 1945 | [phone] | [place] [address] | | | jose | | | 8 (Home) | | + +--------+ +--------+ + + Advance Directives + + + + + | Type | Date Recorded | Patient | Explanation | | | | Retail Manager In Training | | + + + + + | Power of | | | | | Hand Endband Cutter | | | | + + + [...]
--- OUTSIDE RECORDS SUMMARY | ~2019-09-28 | XMS | Encounter Summary ---
Demographics + + + | Address | [address] | | | [place] [address] | + + + | Home Phone [...] Providers + +------+ + | Care Manager Games Name | Role | Phone | + +------+ + | Romy De La Paz MD | PCP | | + +------+ + Encounter Details +--------+ + + + + | Date | Type | Department | Care Team | Description | +--------+ + + + + | 10/18/ | Telephone | [facility] | Shay Dietz | | | 2012 | | MEDICINE [address] | MD Lonny [address] | | | | | [address] [facility] | [place], [place] | | | | | [place] [address] | [address] | | | | | [phone] | | | +--------+ + + + [...] [place] | | | | | | [address] | | | | | | | | +--------+---------+ + + + documented as of this encounter Visit Diagnoses Not on filedocumented in this encounter"
--- OUTSIDE RECORDS SUMMARY | ~2019-09-28 | XMS | Encounter Summary ---
Demographics + + + | Address | [address] | | | [place] [address] | + + + | Home Phone [...] Providers + +------+ + | Care Food Writer Name | Role | Phone | [...] | | | | | right-sided | [place], [place] | [place], [place] | | | | | sciatica | [address] | [address] | | | | | Facet | Phone: | Phone: | | | | | arthritis of | [phone] | [phone] | | | | | lumbar | Fax: | Fax: | | | | | region | [phone] | [phone] | | | | | Foraminal | [...] | Pope[place], | | | | | Supervisor Coffee / | Low back | Oxana Solorio, | [place], | | | | Physical | pain | SUPERVISOR EVAPORATOR [address] | [address] | | | | Medicine and | Bilateral | [address] [place] | [address] | | | | Rehabilitatio | leg pain | [place], | [address] [place], | | | | n | Bilateral | [place] [address] | [place] [address] | | | | | hip pain | Phone: | Phone: | | | | | low back | [phone] | [phone] | | | | | pain, | Fax: | Fax: | | | | | bilateral | [phone] | [phone] | | | | | leg pain [...] | (Primary Dx); | | | | Rawlings [place], | [place], | Chronic right-sided | | | | [place] [address] | [place] [address] | low back pain with | | | | [phone] | [phone] | right-sided | | | | | [...] 07/06/2016 9:31 AM PDT1) Lumbar MRI in [facility] - you need to call us when the images are done 2) Facet injection with Dr. Diezt today 3) Right trochanteric bursa injection today [...] of the procedure you must provide a driver trainer to take you home. For all procedur [...] and working more hours due to the [employer] Round up. Her pain back is worse [...] has no apparent deficits with short or watcher automat long goods memory. 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 Unfortunately she lola nues to [...] has been ordered to be done at [place] [address]. We will follow up once images are [...] [place] | | | | | | [address] | | | | | | | [...] ICD-10 Code M47.816 Kori Caputo | [facility] | | Joanne presents to the fluoroscopy suite for [facility] | | fluoroscopically-guided bilateral L5-S1 facet injections [...] + + | Performing | Address | City/State/[facility] | Phone Number | | Organization | | | | + + + + + | [address] | [address] | [place] | [phone] | | [facility] | | [address] | | | - IMAGING | | [...]
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
--- OUTSIDE RECORDS SUMMARY | ~2019-09-28 | XMS | Encounter Summary ---
Demographics + + + | Address | [address] | | | [place] [address] | + + + | Home Phone [...] Providers + +------+ + | Care Sales Floor Team Leader Name | Role | Phone | [...] + + | 08/03/ | Anesthesia | [facility] | Yojana Arellano CRNA | | | 2019 | [facility] | [address] | | | | | OPERATING RO[address] | [place] [address] | | | | | [address] | [phone] | | | | | [place], [place] | | | | | | [address] | | | | | | [phone] | | | +--------+ + + + [...] +----+---+ + + | | 0 | [place] | | | | 9 | 43-degrees [...] [address] | | eral | Antecubital; [id number] | Mikayla Marcial, | Gamal Whitney, | [...] | | | | | | DR[address] [place], [place] | | | | | | [address] | | | | | | | [...] - 08/03/2019 9:52 AM PDT Anesthesia Airway Qbjdhzlej51/4/2019 | | 9:33Preprocedure check: patient identified, oxygen, [...]
--- OUTSIDE RECORDS SUMMARY | ~2019-09-28 | XMS | Encounter Summary ---
Demographics + + + | Address | [address] | | | [place] [address] | + + + | Home Phone [...] Providers + +------+ + | Care Data Miner Name | Role | Phone | + +------+ + | Oxana Nye | PCP | | + +------+ + Encounter Details +--------+ + + + + | Date | Type | Department | Care Team | Description | +--------+ + + + + | 07/06/ | Hospital | [facility] | [place], | 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 | MED CTR XRAY [address] | [address] | lumbar region | | | | [place] | [place] [address], | without myelopathy | | | | [place] [address] | [place] [address] | or radiculopathy | | | | [phone] | [phone] | (Primary Dx); | | | | | | Chronic right-sided | | | | | Grades 9 12 [employer], [employer] | low back pain with | [...] [place] | | | | | | [address] | | | | | | | [...] presents to the fluoroscopy suite for | [facility] | | fluoroscopically-guided bilateral L5-S1 [...] ST. | [address] | [place] | [phone] | | [facility] | | [address] | | | - IMAGING | | [...] | | | | | Other, ONCE, [facility] [place] 07/06/16 at 1115, | | AM PDT | | | | | For 1 dose, Radiology | | | | | | + +--------+ +-------+------+------+ +---+---+ | | | +---+---+ + +-------+ +------+---+---+ | lidocaine 1% injection 1 mL 1 | Given | 07/06/20 | 1 mL | | | | mL, Other, ONCE, [facility] [place] 07/06/16 at | | 16 11:03 | [...]
--- OUTSIDE RECORDS SUMMARY | ~2019-09-28 | XMS | Encounter Summary ---
Demographics + + + | Address | [address] | | | [place] [address] | + + + | Home Phone [...] Team Providers + +------+ + | Care Algology Teacher Name | Role | Phone | + +------+ + | Wendi Aiken | PCP | | + +------+ + Encounter Details +--------+ + + + + | Date | Type | Department | Care Team | Description | +--------+ + + + + | 12/28/ | Hospital | [facility] | Conversion | Diagnosis unknown | | 2018 | Encounter | CONVERSION [address] | Transaction, | | | | | [address] | Provider Unknown | | | | | [place], [place] | [phone] | | | | | [address] | | | | | | [phone] | | | +--------+ + + + [...] [place] | | | | | | [address] | | | | | | | [...]
--- OUTSIDE RECORDS SUMMARY | ~2019-09-28 | XMS | Encounter Summary ---
Demographics + + + | Address | [address] | | | [place] [address] | + + + | Home Phone [...] Team Providers + +------+ + | Care Dumper Name | Role | Phone | + [...] + + | 07/03/ | Telephone | [facility] | Shay Dietz | Other (Called | | 2012 | | PHYSIATRY [address] | [address] | patient to discuss | | | | [place], | [place], [place] | options regarding | | | | [place] [address] | [address] | having another | | | | [phone] | | injection or having | | [...] [place] | | | | | | [address] | | | | | | | | +--------+---------+ + + + documented as of this encounter Visit Diagnoses Not on filedocumented in this encounter"
--- OUTSIDE RECORDS SUMMARY | ~2019-09-28 | XMS | Encounter Summary ---
Demographics + + + | Address | [address] | | | [place] [address] | + + + | Home Phone [...] Providers + +------+ + | Care Manager Electronic Name | Role | Phone | + [...] | | | stenosis | B | [address] | | | | | | [place], [place] | Phone: | | | | | | [address] | [phone] | | | | | | Phone: | Fax: | | | | | | [phone] | [phone] | | | | | | Fax: | | | | | | | [phone] | | + +--------+ + + + + Encounter Details +--------+---------+ + + + | Date | Type | Department | Care Team | Description | +--------+---------+ + + + | 08/16/ Office | [facility] | Denys Sibley, | S/P insertion of | | 2018 | Visit | [facility] | DO [address] | spinal cord | | | | [address]OLOGY [address] | stimulator (Primary | | | | [address] [place] [address] | [address] | Dx); Spinal stenosis | | | | [place], [place] | | of lumbosacral | | | | [address] | | region; Intractable | | | | [phone] | | back pain; Encounter | | [...] anterior chest wall every 72 hours, and [place] 7.5/325 1 p.o. every 6 hours as [...] Screen 08/03/2019 NEGATIVE Final BB BAND 08/03/2019 [id number] Final BB BAND 08/03/2019 Testing performed at [facility];[address] [place] [address];[place] [address] Final Glucose, POC 08/03/2019 77 65 - [...] Final Antibody Screen 07/18/2019 Testing performed at [facility];[address] [place] [address];[place] [address] Final SOURCE: 07/18/2019 NARES(NOSE) Final Result 07/18/2019 [...] to physical therapy, mass age therapy, acupuncture, ocular care aide, along with recommended psychological counseling [...] every 72 hours con tinue with the [place] 10/325 1 p.o. every 6 hours as needed breakthrough pain and Robaxin 500 mg every 6 hours as needed muscle spasms Patient understands and is in full agreement with the above plan, Will return to office in 4 weeks, [facility] was consulted and appears appropriate, [...] and complications with the passage of time. shelter use is also associated with depressions, and [...] [place] | | | | | | [address] | | | | | | | [...]
--- OUTSIDE RECORDS SUMMARY | ~2019-09-28 | XMS | Encounter Summary ---
Demographics + + + | Address | [address] | | | [place] [address] | + + + | Home Phone [...] Team Providers + +------+ + | Care Program Rep Name | Role | Phone | + +------+ + | Concepción Gallardo NP | PCP | | + +------+ + Reason for Visit + + + | Reason | Comments | + + + | Appointment | Increased pain-requesting appointmnet jarroder | + + + Encounter Details +--------+ + + + + | Date | Type | Department | Care Team | Description | +--------+ + + + + | 10/29/ | Telephone | [facility] | Sj Valdes MD | Appointment | | 2013 | | NEUROSURGERY [address] | [address] | (Increased | | | | [address] | [place] [address] | pain-requesting | | | | [place] | [phone] | [facility]) | | | | [address] | | | | | | [phone] | | | +--------+ + + + [...] [place] | | | | | | [address] | | | | | | | | +--------+---------+ + + + documented as of this encounter Visit Diagnoses Not on filedocumented in this encounter"
--- OUTSIDE RECORDS SUMMARY | ~2019-09-28 | XMS | Encounter Summary ---
Demographics + + + | Address | [address] | | | [place] [address] | + + + | Home Phone [...] Team Providers + +------+ + | Care Sinter Feeder Name | Role | Phone | [...] | | | | | region | [address] | | | | | | | Phone: | | | | | | | [phone] | | | | | | | Fax: | | | | | | | [phone] | | +--------+ + + + + + Reason for Visit + + + | Reason | Comments | + + + | Follow-up | MRI f/u | + + + Encounter Details +--------+---------+ + + + | Date | Type | Department | Care Team | Description | +--------+---------+ + + + | 09/10/ | Office | [facility] | Darrin Hoyos | Scoliosis of lumbar | | 2013 | Visit | NEUROSURGERY [address] | [address] | spine (Primary Dx); | | | | [address] | [address] | Facet arthritis of | | | | [place], [place] | [place] [address] | lumbar region | | | | [address] | [phone] | | | | | [phone] | | | +--------+---------+ + + + [...] t from the original. PEE Vang [address] [facility], [address] [place], [place] [address] FAX: NEUROSURGERY HISTORY AND PHYSICAL EXAMINATION CHIEF [...] a also s een a surgeon in [facility] he stated she did not need to have surgery according to her repo rt. She also reports she had a recent MRI in the [facility] which I do not have [...] apparent deficits with short or fdc memory. CRANIAL NERVES: II: Acuity is intact. [...] Intrinsics 5 4 Ulnar Intrinsics 5 4 Transformer Coil Winder Strength 5 4 Hip Flexion 5 4 [...] [place] | | | | | | [address] | | | | | | | [...]
--- OUTSIDE RECORDS SUMMARY | ~2019-09-28 | XMS | Encounter Summary ---
Demographics + + + | Address | [address] | | | [place] [address] | + + + | Home Phone [...] Team Providers + +------+ + | Care Drum Attendant Name | Role | Phone | + +------+ + | Miquel Calhoun MD | PCP | | + +------+ + Encounter Details +--------+ + + + + | Date | Type | Department | Care Team | Description | +--------+ + + + + | 05/01/ | Hospital | [facility] | Shay Dietz | | | 2012 | Encounter | MED CTR XRAY [address] | [address], [address] | | | | | [place] | [facility] [place], [place] | | | | | [place] [address] | [address] | | | | | [phone] | | | +--------+ + + + [...] [place] | | | | | | [address] | | | | | | | [...] Performed At | + + + | [facility] | [place] | | Department [address] [facility] | [facility] | | [ rep [facility]] [ rep [facility] | | [facility]] Signed | - IMAGING | | | | | Patient Name: WAYNEKORI PARIS | | | Physician: OMID : [id number] Age: 67 Sex: F Unit | | | #: [id number] Exam Date: 05/01/13 Location: | | | IMG.INV Report #: [id number] Page: | | | %(RAD)RES..mtdd.print.filter("pg") of %(RAD) | | | RES..mtdd.print.filter("tpg") | | | | | | Accession Number: [id number] | | | PROCEDURE NOTE LUMBAR FACET [...] Transcribed | | | Date/Time: 05/09/2013 18:53 Exhibits Manager: | | | <<Signature on File>> | | | Shay Mukherjee | | | MD J Luis05/15/132101 <Electronically signed by Shay Mukherjee | | | J Luis SALGADO> Shay Dietz MD 05/09/131812 | | | Exhibits Manager: Yudelka Vejevyvinaqrw45/10/131852 | | | | | + + + + + + + + | Performing | Address | City/State/Zipcode | Phone Number | | Organization | | | | + + + + + | [facility] | [address] | [place] | [phone] | | [facility] | | [address] | | | - IMAGING | | | | + + + + + documented in this encounter Visit Diagnoses Not on filedocumented in this encounter
--- OUTSIDE RECORDS SUMMARY | ~2019-09-28 | XMS | Encounter Summary ---
Demographics + + + | Address | [address] | | | [place] [address] | + + + | Home Phone [...] Team Providers + +------+ + | Care Video Game Maker Name | Role | Phone | [...] + | 10/29/ | Telephone | [facility] | Sj Valdes MD | Appointment | | 2013 | | NEUROSURGERY [address] | [address] | (Increased | | | | [address] | [place] [address] | pain-requesting | | | | [place] | [phone] | [facility]) | | | | [address] | | | | | | [phone] | | | +--------+ + + + [...] [place] | | | | | | [address] | | | | | | | | +--------+---------+ + + + documented as of this encounter Visit Diagnoses Not on filedocumented in this encounter"
--- OUTSIDE RECORDS SUMMARY | ~2019-09-28 | XMS | Encounter Summary ---
Demographics + + + | Address | [address] | | | [place] [address] | + + + | Home Phone [...] Team Providers + +------+ + | Care Web Administrator Name | Role | Phone | [...] low | [place], | [address] | | | | | back pain | Shay Mukherjee MD | [place], | | | | | Procedures | [address] | [place] | | | | | MRI Lumbar | [place] | [address] | | | | | Spine wo | [place], [place] | Phone: | | | | | Contrast | [address] | [phone] | | | | | | Phone: | Fax: | | | | | | [phone] | [phone] | | | | | | Fax: | | | | | | | [phone] | | +--------+--------+ + + + + [...] pain (Primary Dx); | | | | [address] [place], | [place], [place] | DISC DISEASE, | | | | [place] [address] | [address] | LUMBAR; Facet | | | | [phone] | | arthritis of lumbar | | [...] [place] | | | | | | [address] | | | | | | | [...]
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
--- OUTSIDE RECORDS SUMMARY | ~2019-09-28 | XMS | Encounter Summary ---
Demographics + + + | Address | [address] | | | [place] [address] | + + + | Home Phone [...] | | + + +---------+ + | Nahtalia Weinstein | ECON | Unknown | | + + +---------+ + Care Team Providers + +------+ + | Care Tank Car Mechanic Name | Role | Phone [...] 2019 | | [facility] | [address] | [facility] | | | | ORTHOPEDIC SPINE | HAYLEY SANCHEZ, | Healthcare Orders) | | | | [address] [place] | [place] [address] | | | | | [place] | [phone] | | | | | [address] | | | | | | [phone] | | | +--------+ + + + [...] [place] | | | | | | [id number] | | | | | | | | +--------+---------+ + + + documented as of this encounter Visit Diagnoses Not on filedocumented in this encounter"
--- OUTSIDE RECORDS SUMMARY | ~2019-09-28 | XMS | Encounter Summary ---
Demographics + + + | Address | [address] | | | [place] [address] | + + + | Home Phone [...] Team Providers + +------+ + | Care Rip/Mould Operator Name | Role | Phone | + +------+ + PCP | Unavailable | + +------+ + Encounter Details +--------+ + + + + | Date | Type | Department | Care Team | Description | +--------+ + + + + | 02/22/ | Hospital | [facility] | Ken Craft | | | 2005 - | Encounter | HEART MED CTR [facility] | MD Masha [address] | | | | | TH ADULT [address] [place], [place] | | | 02/28/ | | [address] [place], [place] | [address] | | | 2005 | | [address] | | | | | | [phone] | Samantha Estes | | | | | | MD Jewel [address] | | | | | | [address] | | | | | | [place] [address] | | | | | | | [...] [place] | | | | | | [address] | | | | | | | | +--------+---------+ + + + documented as of this encounter Visit Diagnoses Not on filedocumented in this encounter"
--- OUTSIDE RECORDS SUMMARY | ~2019-09-28 | XMS | Encounter Summary ---
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 She has appropriate fund of knowledge [...] along with flexion/extension xray's perf ormed in [place] last week. I will request for these [...] the fluoroscopy suite for a [facility] | | fluoroscopically-guided left L5-S1 transforaminal [...] + + | Performing | Address | City/State/[facility] | Phone Number | | Organization | | | | + + + + + | [facility] | [address] | [place] | [phone] | | [facility] | | [address] | | | - IMAGING | | [...]
--- OUTSIDE RECORDS SUMMARY | ~2019-09-28 | XMS | Encounter Summary ---
Demographics + + + | Address | [address] | | | [place] [address] | + + + | Home Phone [...] + | Author | [facility] (Historical as of | | | 06-16-19) | + + + | Organization | [facility] (Historical as of | | | [...] Team Providers + +------+ + | Care Ophthalmic Tech Name | Role | Phone | + +------+ + | Romy De La Paz MD | PCP | | + +------+ + Encounter Details +--------+---------+ + + + | Date | Type | Department | Care Team | Description | +--------+---------+ + + + | 08/03/ | Surgery | [facility] | Maykel Hutchins MD | SPINAL CORD | | 2019 | | [facility] | [address] | STIMULATOR - | | | | Operating Room [address] | [place] [address] | THORACIC LAMINECTOMY | | | | [address] | [phone] | | | | | [place] [address] | | | | | | [phone] | | | +--------+---------+ + + + [...]
--- OUTSIDE RECORDS SUMMARY | ~2019-09-28 | XMS | Encounter Summary ---
Demographics + + + | Address | [address] | | | [place] [address] | + + + | Home Phone [...] Team Providers + +------+ + | Care Animal Bounty Hunter Name | Role | Phone | [...] + + | 09/04/ | Telephone | [facility] | Shay Dietz | Appointment | | 2012 | | PHYSIATRY [address] | [address], [address] | | | | | [place], | [place], [place] | | | | | [place] [address] | [address] | | | | | [phone] | | | +--------+ + + + [...] [place] | | | | | | [address] | | | | | | | | +--------+---------+ + + + documented as of this encounter Visit Diagnoses Not on filedocumented in this encounter"
--- OUTSIDE RECORDS SUMMARY | ~2019-09-28 | XMS | Encounter Summary ---
Demographics + + + | Address | [address] | | | [place] [address] | + + + | Home Phone [...] Team Providers + +------+ + | Care Blood Bank Technologist Name | Role | Phone | [...] | Pain | Diagnoses | Cr, | Utility Tech Chh1 | | | | Management | PPS (pelvic | MD Britta | [address] | | | | | pain | [address] | [address] | | | | | syndrome) | [facility] | Mailcode: | | | | | Procedures | Rd | [facility] | | | | | CONSULT TO | [facility] [place] | for Health | | | | | PAIN CENTER | [address] | and Healing, | | | | | | Phone: | Building | | | | | | [phone] | 1,15th Floor | | | | | | Fax: | [place], [place] | | | | | | [phone] | [address] | | | | | | | Phone: | | | | | | | [phone] | | | | | | | Fax: | | | | | | | [phone] | +--------+--------+ + + + + Reason [...] | | | | | symptom | [place] [address] | | | | | associated | [place] | Juliana Schulte | | | | | with female | Urology [address] [place] | | | | | genital | [address] | [address] | | | | | organs | [address] [place], | [place], [place] | | | | | Unspecified | [place] [address] | [address] | | | | | urinary | Phone: | Phone: | | | | | incontinence | [phone] | [phone] | | | | | | Fax: | Fax: | | | | | | [phone] | [phone] | +--------+--------+ + + + + Encounter Details +--------+---------+ + + + | Date | Type | Department | Care Team | Description | +--------+---------+ + + + | 11/29/ | Office | [facility] | Britta Hankins MD | PPS (pelvic pain | | 2014 | Visit | [facility] | [address] | syndrome) (Primary | | | | [address] | Juliana [place] [place], | Dx); Depression with | | | | [address] | [place] [address] | suicidal ideation; | | | | Aravind Hannon | [phone] | Recurrent UTI; | | | | [place], [place] | | Hypoestrogenism | | | | [address] | | | | | | [phone] | | | +--------+---------+ + + + [...] 4. Referral to pain service here at [facility] 5. Let me know [...] (2 vag, 1 cs, she had to [facility] hospitalized after her second delivery for infection) seen at the request of Dr. Ck wan r pelvic pain and LUTs following pelvic reconstructive surgery. She is accompanied by her so sadiq Ball. He lives here in [place] so he is not fully aware of her recent health issues but h e did help in providing some of his mother's past history. 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 Long gold, she was hospitalized at [facility] in 2005 for a [...] speaker, a good grandmother". Her physicians in [place] and elsewhere will not pre scribe pain [...] until she was able to leave her [place] house at age 20. Her aunt recently [...] estrogenization of the vulvova ginal tissues; negative ATHLETIC FIELD CUSTODIAN; no hypospadias of the urethra; + tenderness [...] F/U with Dr. Stover on return to [place]. I am Christine Monterroso functioning as a scribe for Dr. Britta Hankins. Christine Monterroso [facility] [address] [facility] [address] [facility] [place] [address] I have reviewed, verified, and amended the [...] for afternoon appointments. Britta Hankins M.D., FACS [place] [facility] documented in this encoun ter [...]
--- OUTSIDE RECORDS SUMMARY | ~2019-09-28 | XMS | Encounter Summary ---
Demographics + + + | Address | [address] | | | [place] [address] | + + + | Home Phone [...] Team Providers + +------+ + | Care Gem Technician Name | Role | Phone | [...] pain log reponse) | | | | [place], | [place] | | | | | [place] [address] | [address] | | | | | [phone] | | | +--------+ + + + [...] [place] | | | | | | [address] | | | | | | | | +--------+---------+ + + + documented as of this encounter Visit Diagnoses Not on filedocumented in this encounter"
--- OUTSIDE RECORDS SUMMARY | ~2019-09-28 | XMS | Encounter Summary ---
Demographics + + + | Address | [address] | | | [place] [address] | + + + | Home Phone [...] Providers + +------+ + | Care Concrete Mixer Name | Role | Phone | + +------+ + | Wendi Aiken | PCP | | + +------+ + Encounter Details +--------+ + + + + | Date | Type | Department | Care Team | Description | +--------+ + + + + | 04/07/ | Imaging | [facility] | Provider, | | | 2018 | Exam | MED CTR EXTERNAL | [address] | | | | | IMAGING | [address] | | | | | [phone] | [place] [address] | | +--------+ + + + + [...] | | | | | | [address] [facility] | | | | | | [id number] | | | | | | | [...]
--- OUTSIDE RECORDS SUMMARY | ~2019-09-28 | XMS | Encounter Summary ---
Demographics + + + | Address | [address] | | | [place] [address] | + + + | Home Phone [...] Providers + +------+ + | Care Budget Technician Name | Role | Phone | [...] | Lumbar | [place], | [address] | | | | | spondylosis | Shay Mukherjee MD | [place], | | | | | Right hip | [address] | [place] | | | | | pain | [place] | [address] | | | | | Procedures | [place], [place] | Phone: | | | | | [place] | [address] | [phone] | | | | | DX/THER AGNT | Phone: | Fax: | | | | | [place] | [phone] | [phone] | | | | | FACET JOINT, | Fax: | | | | | | LUMBAR/SAC, | [phone] | | | | | | [address] | | | | | | | [place] | | | | | | | [place] | | | | | | | E ACET INJ | | | | | | | NOS, 10 MG | | | | | | | [place] | | | | | | | [...] + + | 02/08/ | Hospital | [facility] | [place], | Trochanteric | | 2016 | Encounter | MED CTR XRAY [address] | [address] | bursitis of right | | | | [place] | [facility], | hip (Primary Dx); | | | | [place] [address] | [place] [address] | Chronic bilateral | | | | [phone] | [phone] | low back pain with | | | | | | right-sided | | | | | Marksmanship In[place], [place] | sciatica; Facet | | | [...] [place] | | | | | | [address] | | | | | | | [...] Bursa Injection Diagnosis: Lumbar Spondylosis and | [facility] | | Trochanteric Bursitis ICD-10 Code M47.816 and ICD-10 [facility] | | Harshal Rubio presents to the [...] + + | Performing | Address | City/State/[facility] | Phone Number | | Organization | | | | + + + + + | [facility] | [address] | [place] | [phone] | | [facility] | | [address] | | | - IMAGING | | [...]
--- OUTSIDE RECORDS SUMMARY | ~2019-09-28 | XMS | Encounter Summary ---
Demographics + + + | Address | [address] | | | [place] [address] | + + + | Home Phone [...] Team Providers + +------+ + | Care Optometric Assistant Name | Role | Phone | [...] Chronic low | [place], | [address] | | | | | back pain | Shay Mukherjee MD | [place], | | | | | Lumbar | [address] | [place] | | | | | radiculopath | [place] | [address] | | | | | y | [place] | Phone: | | | | | Procedures | [address] | [phone] | | | | | MRI Lumbar | Phone: | Fax: | | | | | Spine wo | [phone] | [phone] | | | | | Contrast | Fax: | | | | | | MRI | [phone] | | +--------+--------+ + + + + [...] pain (Primary Dx); | | | | [address] [place], | [place] | Lumbar radiculopathy | | | | [place] [address] | [address] | | | | | [phone] | | | +--------+ + + + [...] [place] | | | | | | [address] | | | | | | | [...] + | Performing | Address | City/State[facility] | Phone Number | | Organization | | | | + +---------+ + + | [facility] | | | [phone] | + +---------+ + + | MISCELANIOUS LAB | | | [phone] | + +---------+ + + documented in this encounter Visit Diagnoses + + | Diagnosis | + + | Chronic low back pain - Primary Lumbago | + + | Lumbar radiculopathy Thoracic or lumbosacral neuritis or radiculitis, unspecified | + + documented in this encounter"
--- OUTSIDE RECORDS SUMMARY | ~2019-09-28 | XMS | Encounter Summary ---
Demographics + + + | Address | [address] | | | [place] [address] | + + + | Home Phone [...] [address] | | | | | [place], [place] | [place], [place] | | | | | [address] | [address] | | | | | [phone] | [phone] | | | | | | | [...] + + + | [facility] DEPARTMENT OF | [address] [facility] | [place] [address] | | | PATHOLOGY | [address] | | | + + + + + | [facility] DEPARTMENT OF | [facility] [facility] | [place] [address] | | | PATHOLOGY | [address] [...] + + + | [facility] DEPARTMENT OF | [address] | [place] [address] | | | PATHOLOGY | [address] | | | + + + + + | [facility] OF | [address] | [place] [address] | | | PATHOLOGY | [address] [...] + + + | [facility] DEPARTMENT OF | [address] | [place] [address] | | | PATHOLOGY | [address] | | | + + + + + | [facility] DEPARTMENT OF | [address] | [place] [address] | | | PATHOLOGY | [address] [...] DEPARTMENT OF | [address] | [place] [address] | | | PATHOLOGY | [address] | | | + + + + + | [facility] DEPARTMENT OF | [address] | [place] [address] | | | PATHOLOGY | [address] [...] + + + | [facility] DEPARTMENT OF | [address] [facility] | [place] [address] | | | PATHOLOGY | [address] | | | + + + + + | [facility] DEPARTMENT OF | [address] [facility] | [place] [address] | | | PATHOLOGY | [address] [...] | + + + + + | [facility] | [address] [facility] | [place] [address] | | | PATHOLOGY | [address] | | | + + + + + | [facility] | [facility] [facility] | [place] [address] | | | PATHOLOGY | [address] | | | + + + + + PHOSPHORUS, PLASMA (06/30/2006 7:00 AM PDT) + +-------+ + + + | Component | Value | Ref Range | Performed | Pathologist | | | | | At | Signature | + +-------+ + + + | PHOSPHORUS, | 3.8 | 2.4 - 4.7 mg/dL | [facility] | | | PLASMA | | [...] + + + | [facility] DEPARTMENT OF | [address] | [place] [address] | | | PATHOLOGY | [address] | | | + + + + + | [facility] DEPARTMENT OF | [address] | [place] [address] | | | PATHOLOGY | [address] [...] + + | [facility] DEPARTMENT OF | [address] | [place], [place] [address] | | | PATHOLOGY | [address] | | | + + + + + | [facility] DEPARTMENT OF | [address] | [place] [address] | | | PATHOLOGY | [address] | | | + + + + + CREATININE, URINE (06/30/2006 4:45 AM PDT) + +-------+ + + + | Component | Value | Ref Range | Performed | Pathologist | | | | | At | Signature | + +-------+ + + + | CREATININE | 40.1 | mg/dL | [facility] | | | CONC UR | | [...] + + + | [facility] DEPARTMENT OF | [address] | [place] [address] | | | PATHOLOGY | [address] | | | + + + + + | [facility] DEPARTMENT OF | [address] | [place] [address] | | | PATHOLOGY | [address] [...] + + + | [facility] DEPARTMENT OF | [address] | [place] [address] | | | PATHOLOGY | [address] | | | + + + + + | [facility] DEPARTMENT OF | [address] [facility] | [place] [address] | | | PATHOLOGY | [address] [...] + + | [facility] DEPARTMENT OF | [address] | [place] [address] | | | PATHOLOGY | [address] | | | + + + + + | [facility] DEPARTMENT OF | [address] | [place] [address] | | | PATHOLOGY | [address] [...] | + + + + + | [facility] | [address] [facility] | [place] [address] | | | PATHOLOGY | [address] | | | + + + + + | [facility] | [address] [place] [address] | [place] [address] | | | PATHOLOGY | [address] [...] + | [facility] DEPARTMENT OF | [address] [facility] | [place] [address] | | | PATHOLOGY | [address] | | | + + + + + | [facility] DEPARTMENT OF | [address] [facility] | [place] [address] | | | PATHOLOGY | [address] [...] DEPARTMENT OF | [address] | [place] [address] | | | PATHOLOGY | [address] | | | + + + + + | [facility] DEPARTMENT OF | [address] | [place] [address] | | | PATHOLOGY | [address] | | | + + + + + PHOSPHORUS, PLASMA (06/29/2006 5:45 PM PDT) + +-------+ + + + | Component | Value | Ref Range | Performed | Pathologist | | | | | At | Signature | + +-------+ + + + | PHOSPHORUS, | 3.6 | 2.4 - 4.7 mg/dL | [facility] | | | PLASMA | | [...] + + + | [facility] DEPARTMENT | [address] | [place] [address] | | | PATHOLOGY | [address] | | | + + + + + | [facility] | [address] | [place] [address] | | | PATHOLOGY | [address] [...] [facility] | [address] | [place], [place] | | | [facility] | | [address] | | + + + + + [...] | + + + + + | [facility] | [address] [facility] | [place] [address] | | | PATHOLOGY | [address] | | | + + + + + | [facility] | [address] [facility] | [place] [address] | | | PATHOLOGY | [address] [...] DEPARTMENT OF | [address] | [place] [address] | | | PATHOLOGY | [address] | | | + + + + + | [facility] | [address] | [place] [address] | | | PATHOLOGY | [address] [...] [facility] | [address] | [place], [place] | | | [facility] | | [address] | | + + + + + [...] | | | | | performed at [facility] | | | | | | [facility] | | | | | | Laboratory. | | | | + + + + + + + + | Specimen | + + | | + + + + + + + | Performing | Address | City/State/Zipcode | Phone Number | | Organization | | | | + + + + + | [facility] | [address] | [place] [address] | | | LAB-MICRO | | | [...] DEPARTMENT OF | [address] | [place] [address] | | | PATHOLOGY | [address] | | | + + + + + | [facility] DEPARTMENT OF | [address] | [place] [address] | | | PATHOLOGY | [address] [...] | + + + + + | [facility] | [address] | [place] [address] | | | PATHOLOGY | [address] | | | + + + + + | [facility] | [address] [place] [address] | [place] [address] | | | PATHOLOGY | [address] [...] + + | [facility] DEPARTMENT OF | [address] | [place] [address] | | | PATHOLOGY | [address] | | | + + + + + | [facility] DEPARTMENT OF | [address] | [place] [address] | | | PATHOLOGY | [address] [...] + + + | [facility] DEPARTMENT OF | [facility] | [place] [address] | | | PATHOLOGY | [address] | | | + + + + + | [facility] DEPARTMENT OF | [facility] | [place] [address] | | | PATHOLOGY | [address] [...] + + + | [facility] DEPARTMENT OF | [address] | [place] [address] | | | PATHOLOGY | [address] | | | + + + + + | [facility] DEPARTMENT OF | [address] | [place] [address] | | | PATHOLOGY | [address] | | | + + + + + PHOSPHORUS, PLASMA (06/29/2006 6:55 AM PDT) + +---------+ + + + | Component | Value | Ref Range | Performed | Pathologist | | | | | At | Signature | + +---------+ + + + | PHOSPHORUS, | 2.2 (L) | 2.4 - 4.7 mg/dL | [facility] | | | PLASMA | | [...] + + + | [facility] DEPARTMENT OF | [facility] | [place] [address] | | | PATHOLOGY | [address] | | | + + + + + | [facility] DEPARTMENT OF | [address] | [place] [address] | | | PATHOLOGY | [address] [...] + + + | [facility] DEPARTMENT OF | [address] [facility] | [place] [address] | | | PATHOLOGY | [address] | | | + + + + + | [facility] DEPARTMENT OF | [address] [facility] | [place] [address] | | | PATHOLOGY | [address] [...] DEPARTMENT OF | [address] | [place] [address] | | | PATHOLOGY | [address] | | | + + + + + | [facility] DEPARTMENT OF | [address] | [place] [address] | | | PATHOLOGY | [address] [...] + + + | [facility] DEPARTMENT OF | [address] [facility] | [place] [address] | | | PATHOLOGY | [address] | | | + + + + + | [facility] | [address] [facility] | [place] [address] | | | PATHOLOGY | [address] [...] DEPARTMENT OF | [address] | [place] [address] | | | PATHOLOGY | [address] | | | + + + + + | [facility] DEPARTMENT OF | [address] | [place] [address] | | | PATHOLOGY | [address] [...] + + + | [facility] DEPARTMENT OF | [address] | [place] [address] | | | PATHOLOGY | [address] | | | + + + + + | [facility] DEPARTMENT OF | [address] | [place] [address] | | | PATHOLOGY | [address] | | | + + + + + MAGNESIUM, PLASMA (06/28/2006 6:20 AM PDT) + +-------+ + + + | Component | Value | Ref Range | Performed | Pathologist | | | | | At | Signature | + +-------+ + + + | MAGNESIUM,P | 2.1 | 1.8 - 2.5 mg/dL | [facility] | | | LASMA | | [...] + + + | [facility] DEPARTMENT OF | [facility] | [place] [address] | | | PATHOLOGY | [address] | | | + + + + + | [facility] DEPARTMENT OF | [facility] | [place] [address] | | | PATHOLOGY | [address] [...] + + + | [facility] DEPARTMENT OF | [address] [facility] | [place] [address] | | | PATHOLOGY | [address] | | | + + + + + | [facility] DEPARTMENT OF | [address] [facility] | [place] [address] | | | PATHOLOGY | [address] [...] | + + + + + | [facility] | [address] [facility] | [place] [address] | | | PATHOLOGY | [address] | | | + + + + + | [facility] | [address] [facility] | [place] [address] | | | PATHOLOGY | [address] [...] + + + | [facility] DEPARTMENT OF | [address] | [place] [address] | | | PATHOLOGY | [address] | | | + + + + + | [facility] DEPARTMENT OF | [address] | [place] [address] | | | PATHOLOGY | [address] [...] | + + + + + | [facility] | [address] [facility] | [place] [address] | | | PATHOLOGY | [address] | | | + + + + + | [facility] | [facility] | [place] [address] | | | PATHOLOGY | [address] [...] + + + | [facility] DEPARTMENT OF | [address] | [place] [address] | | | PATHOLOGY | [address] | | | + + + + + | [facility] DEPARTMENT OF | [address] | [place] [address] | | | PATHOLOGY | [address] [...] + + + | [facility] DEPARTMENT OF | [facility] | [place] [address] | | | PATHOLOGY | [address] | | | + + + + + | [facility] DEPARTMENT OF | [address] | [place] [address] | | | PATHOLOGY | [address] [...] + + + | [facility] DEPARTMENT OF | [address] | [place] [address] | | | PATHOLOGY | [address] | | | + + + + + | [facility] DEPARTMENT OF | [address] | [place] [address] | | | PATHOLOGY | [address] [...] + + + | [facility] DEPARTMENT OF | [address] | [place] [address] | | | PATHOLOGY | [address] | | | + + + + + | [facility] | [address] | [place] [address] | | | PATHOLOGY | [address] [...] + + + | Test performed at [facility] | | + + + + + + + + | Performing | Address | City/State/Zipcode | Phone Number | | Organization | | | | + + + + + | [facility] | [address] | [place] [address] | | | LABORATORY | | | [...] + + + | Test performed at [facility] | | + + + + + + + + | Performing | Address | City/State/Zipcode | Phone Number | | Organization | | | | + + + + + | [facility] | [address] | [place] [address] | | | LABORATORY | | | | + + + + + IOD-ORGANIC BASE CONFIRM (06/27/2006 11:55 AM PDT) + + | Specimen | + + | | + + + + + | Narrative | Performed At | + + + | Test performed at [facility] | [facility] | | | DEPARTMENT OF | | | PATHOLOGY | + + + + + + + + | Performing | Address | City/State/Zipcode | Phone Number | | Organization | | | | + + + + + | [facility] | [address] [facility] | [place] [address] | | | PATHOLOGY | [address] | | | + + + + + | [facility] | [address] [facility] | [place] [address] | | | PATHOLOGY | [address] [...] | | | | | performed at [facility] | | | | | | [facility] | | | | | | Laboratory. | | | | + + + + + + + + | Specimen | + + | | + + + + + + + | Performing | Address | City/State/Zipcode | Phone Number | | Organization | | | | + + + + + | [facility] | [address] | [place] [address] | | | LAB-MICRO | | | [...] | + + + + + | [facility] | [address] | [place] [address] | | | LABORATORY | | | [...] DEPARTMENT OF | [address] | [place] [address] | | | PATHOLOGY | [address] | | | + + + + + | [facility] DEPARTMENT OF | [address] | [place] [address] | | | PATHOLOGY | [address] [...] | + + + + + | [facility] | [address] [facility] | [place] [address] | | | PATHOLOGY | [address] | | | + + + + + | [facility] | [address] [place] [address] | [place] [address] | | | PATHOLOGY | [address] [...] + + + | [facility] DEPARTMENT OF | [address] | [place] [address] | | | PATHOLOGY | [address] | | | + + + + + | [facility] DEPARTMENT OF | [address] | [place] [address] | | | PATHOLOGY | [address] [...] 1.19Comment: | 0.90 - 1.20 INR | [facility] | | | | PT INR Therapeutic [...] | + + + + + | [facility] | [address] | [place] [address] | | | PATHOLOGY | [address] | | | + + + + + | [facility] DEPARTMENT | [address] | [place] [address] | | | PATHOLOGY | [address] [...] + + + | [facility] DEPARTMENT OF | [address] [facility] | [place] [address] | | | PATHOLOGY | [address] | | | + + + + + | [facility] DEPARTMENT OF | [address] | [place] [address] | | | PATHOLOGY | [address] [...] DEPARTMENT OF | [address] | [place] [address] | | | PATHOLOGY | [address] | | | + + + + + | [facility] DEPARTMENT OF | [address] | [facility] [place] [address] | | | PATHOLOGY | [address] [...] DEPARTMENT OF | [address] | [place] [address] | | | PATHOLOGY | [address] | | | + + + + + | [facility] | [address] | [place] [address] | | | PATHOLOGY | [address] [...] | | | | | performed at [facility] | | | | | | [facility] | | | | | | Laboratory. | | | | + + + + + + + + | Specimen | + + | | + + + + + + + | Performing | Address | City/State/Zipcode | Phone Number | | Organization | | | | + + + + + | [facility] | [address] | [place] [address] | | | LAB-MICRO | | | [...] | | | | | performed at [facility] | | | | | | [facility] | | | | | | Laboratory. | | | | + + + + + + + + | Specimen | + + | | + + + + + + + | Performing | Address | City/State/Zipcode | Phone Number | | Organization | | | | + + + + + | [facility] | [address] | [place] [address] | | | LAB-MICRO | | | [...] DEPARTMENT OF | [address] | [place] [address] | | | PATHOLOGY | [address] | | | + + + + + | [facility] | [address] | [place] [address] | | | PATHOLOGY | [address] [...] | | | | AG, SERUM | [facility] | | | | | | Laboratories. | | | | + + + + + + + + | Specimen | + + | | + + + + + + + | Performing | Address | City/State/Zipcode | Phone Number | | Organization | | | | + + + + + | [facility] | [address] | [place] [address] | | | LABORATORY | | | [...] | | | | HEATHER PARADA | [facility] | | | | | | Laboratories. | | | | + + + + + + + + | Specimen | + + | | + + + + + + + | Performing | Address | City/State/Zipcode | Phone Number | | Organization | | | | + + + + + | [facility] | [address] | [place] [address] | | | LABORATORY | | | [...] | + + + + + | [facility] | [address] | [place] [address] | | | LABORATORY | | | [...] | | | | | performed at [facility] | | | | | | [facility] | | | | | | Laboratory. | | | | + + + + + + + + | Specimen | + + | | + + + + + + + | Performing | Address | City/State/Zipcode | Phone Number | | Organization | | | | + + + + + | [facility] | [address] | [place] [address] | | | LAB-MICRO | | | [...] | + + + + + | [facility] | [address] [facility] | [place] [address] | | | PATHOLOGY | [address] | | | + + + + + | [facility] | [facility] [facility] | [place] [address] | | | PATHOLOGY | [address] [...] + + + | [facility] DEPARTMENT OF | [address] | [place] [address] | | | PATHOLOGY | [address] | | | + + + + + | [facility] DEPARTMENT OF | [address] | [place] [address] | | | PATHOLOGY | [address] [...] + + + | [facility] DEPARTMENT OF | [address] [facility] | [place] [address] | | | PATHOLOGY | [address] | | | + + + + + | [facility] DEPARTMENT OF | [address] [place] [address] | [place] [address] | | | PATHOLOGY | [address] [...] + + + | [facility] DEPARTMENT OF | [address] | [place] [address] | | | PATHOLOGY | [address] | | | + + + + + | [facility] DEPARTMENT OF | [address] | [place] [address] | | | PATHOLOGY | [address] [...] | + + + + + | [facility] | [address] | [place] [address] | | | PATHOLOGY | [address] | | | + + + + + | [facility] DEPARTMENT OF | [address] | [place] [address] | | | PATHOLOGY | [address] [...] + + + | [facility] DEPARTMENT OF | [address] | [place] [address] | | | PATHOLOGY | [address] | | | + + + + + | [facility] DEPARTMENT OF | [address] | [place] [address] | | | PATHOLOGY | [address] [...] + + + | [facility] DEPARTMENT OF | [address] [facility] | [place] [address] | | | PATHOLOGY | [address] | | | + + + + + | [facility] DEPARTMENT OF | [address] [facility] | [place] [address] | | | PATHOLOGY | [address] [...] 247 | 150 - 400 K/cu | [facility] | | | COUNT | | mm [...] + + + | [facility] DEPARTMENT OF | [facility] | [place] [address] | | | PATHOLOGY | [address] | | | + + + + + | [facility] DEPARTMENT OF | [address] | [place] [address] | | | PATHOLOGY | [address] [...] | + + + + + | [facility] | [address] [facility] | [place] [address] | | | PATHOLOGY | [address] | | | + + + + + | [facility] | [address] [facility] | [place] [address] | | | PATHOLOGY | [address] [...] | | | | | | the [facility] LabManual: | | | | | | [email or web address] | | | | | [...] | + + + + + | [facility] | [address] [facility] | [place] [address] | | | PATHOLOGY | [address] | | | + + + + + | [facility] | [address] [facility] | [place] [address] | | | PATHOLOGY | [address] [...] | + + + + + | [facility] | [address] [facility] | [place] [address] | | | PATHOLOGY | [address] | | | + + + + + | [facility] | [address] [facility] | [place] [address] | | | PATHOLOGY | [address] [...] + + + | [facility] DEPARTMENT OF | [facility] | [place] [address] | | | PATHOLOGY | [address] | | | + + + + + | [facility] DEPARTMENT OF | [facility] | [place] [address] | | | PATHOLOGY | [address] [...] + + + | [facility] DEPARTMENT OF | [address] | [place] [address] | | | PATHOLOGY | [address] | | | + + + + + | [facility] DEPARTMENT OF | [address] | [place] [address] | | | PATHOLOGY | [address] [...] | + + + + + | [facility] | [address] | [place] [address] | | | PATHOLOGY | [address] | | | + + + + + | [facility] DEPARTMENT OF | [address] | [place] [address] | | | PATHOLOGY | [address] [...] | 32.0Comment: | 26.0 - 36.0 | [facility] | | | | [facility] Therapeutic [...] | + + + + + | [facility] | [address] [facility] | [place] [address] | | | PATHOLOGY | [address] | | | + + + + + | [facility] | [facility] [facility] | [place] [address] | | | PATHOLOGY | [address] [...] DEPARTMENT OF | [address] | [place] [address] | | | PATHOLOGY | [address] | | | + + + + + | [facility] DEPARTMENT | [address] | [place] [address] | | | PATHOLOGY | [address] [...] | + + + + + | [facility] | [address] | [place] [address] | | | PATHOLOGY | [address] | | | + + + + + | [facility] | [facility] | [place] [address] | | | PATHOLOGY | [address] [...] DEPARTMENT OF | [address] | [place] [address] | | | PATHOLOGY | [address] | | | + + + + + | [facility] DEPARTMENT | [address] | [place], [place] [address] | | | PATHOLOGY | [address] [...] | + + + + + | [facility] DEPARTMENT OF | [address] | [place] [address] | | | PATHOLOGY | [address] | | | + + + + + | [facility] DEPARTMENT OF | [address] | [place] [address] | | | PATHOLOGY | [address] [...] | + + + + + | [facility] | [address] | [place] [address] | | | PATHOLOGY | [address] | | | + + + + + | [facility] | [address] | [place] [address] | | | PATHOLOGY | [address] [...] | + + + + + | [facility] | [address] [facility] | [place] [address] | | | PATHOLOGY | [address] | | | + + + + + | [facility] | [address] [place] [address] | [place] [address] | | | PATHOLOGY | [address] [...] | + + + + + | [facility] | [address] [facility] | [place] [address] | | | PATHOLOGY | [address] | | | + + + + + | [facility] | [address] [facility] | [place] [address] | | | PATHOLOGY | [address] | | | + + + + + documented in this encounter Visit Diagnoses Not on filedocumented in this encounter"
--- OUTSIDE RECORDS SUMMARY | ~2019-09-28 | XMS | Encounter Summary ---
Demographics + + + | Address | [address] | | | [place] [address] | + + + | Home Phone [...] Providers + +------+ + | Care Gas Distribution And Emergency Clerk Name | Role | Phone | + +------+ + | Wendi Aiken | PCP | | + +------+ + Encounter Details +--------+ + + + + | Date | Type | Department | Care Team | Description | +--------+ + + + + | 05/21/ | Orders Only | [facility] | Provider, | | | 2019 | | SYSTEM GENERIC OP | MD [address] | | | | | [address] | Vasquez Jara | | | | | [address] [place], [place] | [place] [address] | | | | | [address] | | | | | | [phone] | | | +--------+ + + + [...] [place] | | | | | | [address] | | | | | | | | +--------+---------+ + + + documented as of this encounter Visit Diagnoses Not on filedocumented in this encounter"
--- OUTSIDE RECORDS SUMMARY | ~2019-09-28 | XMS | Encounter Summary ---
Demographics + + + | Address | [address] | | | [place] [address] | + + + | Home Phone [...] Team Providers + +------+ + | Care Stator Plate Washer Name | Role | Phone | [...] [address] | Dx) | | | | [place], | [place] | | | | | [place] [address] | [address] | | | | | [phone] | | | +--------+ + + + [...] | | | | | | [facility] [place] | | | | | | [address] | | | | | | | | +--------+---------+ + + + documented as of this encounter Visit Diagnoses + + | Diagnosis | + + | Back pain - Primary Backache, unspecified | + + documented in this encounter"
--- OUTSIDE RECORDS SUMMARY | ~2019-09-28 | XMS | Encounter Summary ---
Demographics + + + | Address | [address] | | | [place] [address] | + + + | Home Phone | | + + + | Preferred Language | Unknown | + + + | Marital Status | Single | + + + | Episcopal Affiliation | NON | + + + [...] Team Providers + +------+ + | Care Shower Doors And Panels Fabricator Name | Role | Phone | + [...] 2012 | | [facility] | [address] | (Dr. Holbrook) | | | | [address] | [address] | | | | | [address] | [place], [place] | | | | | [facility] | [address] | | | | | [place], [place] | [phone] | | | | | [address] | | | | | | [phone] | | | +--------+ + + + [...]
--- OUTSIDE RECORDS SUMMARY | ~2019-09-28 | XMS | Encounter Summary ---
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 Sj Valdes M.D. [address] [place] [address], [address] [place] [address] FAX: NEUROSURGERY HISTORY AND PHYSICAL EXAMINATION CHIEF [...] apparent deficits with short or half-way memory. MOTOR EXAM: (5 IS NORMAL) * Indicates pain limited MUSCLE/ MOVEMENT: RIGHT LEFT Deltoids 5 4+ Biceps 5 5 Triceps 5 5 Wrist Flexion 5 5 Wrist Extension 5 5 Median Intrinsics 5 4 Ulnar Intrinsics 5 4 Irrigation Foreman Strength 5 4 Hip Flexion 5 4 [...] | | | | | | DR[address] [place], [place] | | | | | | [address] | | | | | | | [...]
--- OUTSIDE RECORDS SUMMARY | ~2019-09-28 | XMS | Encounter Summary ---
Demographics + + + | Address | [address] | | | [place] [address] | + + + | Home Phone [...] Team Providers + +------+ + | Care Traveling Nurse Name | Role | Phone | [...] [address] | | | | | [place], | [place] [facility], | | | | | [place] [address] | [place] [address] | | | | | [phone] | [phone] | | | | | | | [...] [place] | | | | | | [address] | | | | | | | | +--------+---------+ + + + documented as of this encounter Visit Diagnoses Not on filedocumented in this encounter"
--- OUTSIDE RECORDS SUMMARY | ~2019-09-28 | XMS | Encounter Summary ---
Demographics + + + | Address | [address] | | | [place] [address] | + + + | Home Phone [...] Providers + +------+ + | Care Field Assessor Name | Role | Phone | + [...] Chronic low | [place], | [address] | | | | | back pain | Shay Mukherjee MD | [place], | | | | | Lumbar | [address] | [place] | | | | | radiculopath | [place] | [address] | | | | | y | [place], [place] | Phone: | | | | | Procedures | [address] | [phone] | | | | | MRI Lumbar | Phone: | Fax: | | | | | Spine wo | [phone] | [phone] | | | | | Contrast | Fax: | | | | | | MRI | [phone] | | +--------+--------+ + + + + [...] Chronic low | [place], | [address] | | | | | back pain | Shay Mukherjee MD | [place], | | | | | Lumbar | [address] | [place] | | | | | radiculopath | [place] | [address] | | | | | y | [place], [place] | Phone: | | | | | Procedures | [address] | [phone] | | | | | MRI Lumbar | Phone: | Fax: | | | | | Spine wo | [phone] | [phone] | | | | | Contrast | Fax: | | | | | | MRI | [phone] | | +--------+--------+ + + + + Encounter Details +--------+ + + + + | Date | Type | Department | Care Team | Description | +--------+ + + + + | 04/12/ | Hospital | [facility] | Shay Dietz | Chronic low back | | 2013 | Encounter | MED CTR MRI [address] | T, [address] | pain; Lumbar | | | | [address] [place], | [place], [place] | radiculopathy | | | | [place] [address] | [address] | | | | | [phone] | | | +--------+ + + + [...] [place] | | | | | | [address] | | | | | | | [...] + | MISCELLANEOUS LAB | | | [phone] | + +---------+ + + | MISCELANIOUS LAB | | | [phone] | + +---------+ + + documented in this encounter Visit Diagnoses + + | Diagnosis | + + | Chronic low back pain Lumbago | + + | Lumbar radiculopathy Thoracic or lumbosacral neuritis or radiculitis, unspecified | + + documented in this encounter"
--- OUTSIDE RECORDS SUMMARY | ~2019-09-28 | XMS | Encounter Summary ---
Demographics + + + | Address | [address] | | | [place] [address] | + + + | Home Phone [...] Team Providers + +------+ + | Care Tire Center Supervisor Name | Role | Phone | [...] | | Closed | [facility] | [facility], | | | | | compression | DRIVE | [place] [address] | | | | | fracture of | [place], | Phone: | | | | | fifth lumbar | [place] [address] | [phone] | | | | | vertebra | Phone: | Fax: | | | | | sequela | [phone] | [phone] | | | | | Degenerative | Fax: | | | | | | lumbar | [phone] | | | | | | spinal [...] + + | 09/18/ | Office | [facility] [address] | Alfredo Casillas, DO | S/P insertion of | | 2019 | Visit | [facility] | [address] | spinal cord | | | | [address] | [place] [address] | stimulator (Primary | | | | [facility], | [phone] | Dx); Spinal stenosis | | | | [place] [address] | | of lumbosacral | | | | [phone] | | region; Lumbar | | | [...] Casillas DO - 09/18/2019 9:10 AM PST [facility]: Interventional Pain Management 09/18/2019 Kori [...] Procedure: KYPHOPLASTY; Surgeon: Alfredo Casillas DO; Location: [facility] MAIN OR; Service: Pa in Management; Laterality: N/A; L5 FRACTURE SURGERY ANKLE HERNIA REPAIR HYSTERECTOMY HYSTERECTOMY LAMINECTOMY N/A 08/03/2019 Procedure: LAMINOTOMY THORACIC / LUMBAR W/ PLACEMENT SPINAL CORD STIMULATOR; Surgeon: Suly Hutchins MD; Location: [facility] MAIN OR OTHER SURGICAL HISTORY [...] level: Not on file Occupational History Occupation: [employer] Social Needs Financial resource strain: Not on [...] file Gets together: Not on file Attends jew service: Not on file Active member of [...] did refer her to an orthopedist in [place] where she randal es; so, we will [...] 09/18/2019 This document has been prepared with [employer] voice recognition system. The possibility of "s ound alike" pin drafter operator errors, and additions, or deletions may occur. [...] [place] | | | | | | [address] | | | | | | | [...]
--- OUTSIDE RECORDS SUMMARY | ~2019-09-28 | XMS | Encounter Summary ---
Demographics + + + | Address | [address] | | | [place] [address] | + + + | Home Phone [...] Team Providers + +------+ + | Care Telecommunications Analyst Name | Role | Phone | [...] | | 2016 | Encounter | at [facility] [address] | [address] [facility] | | | | | [place] Mailcode: | [facility] [address], | | | | | [address] | [place] [address] | | | | | Health and Healing, | [phone] | | | | | [facility] | | | | | | floor [place], [place] | | | | | | [address] | | | | | | [phone] | | | +--------+ + + + [...]
--- OUTSIDE RECORDS SUMMARY | ~2019-09-28 | XMS | Encounter Summary ---
Demographics + + + | Address | [address] | | | [place] [address] | + + + | Home Phone [...] Team Providers + +------+ + | Care Editor Book Name | Role | Phone | + [...] [address] | | | | | [place], | [place], [place] | | | | | [place] [address] | [address] | | | | | [phone] | | | +--------+ + + + [...] [place] | | | | | | [address] | | | | | | | | +--------+---------+ + + + documented as of this encounter Visit Diagnoses Not on filedocumented in this encounter"
--- OUTSIDE RECORDS SUMMARY | ~2019-09-28 | XMS | Encounter Summary ---
Demographics + + + | Address | [address] | | | [place] [address] | + + + | Home Phone [...] Team Providers + +------+ + | Care Physician'S Aide Name | Role | Phone | + +------+ + | Romy De La Paz MD | PCP | | + +------+ + Encounter Details +--------+ + + + + | Date | Type | Department | Care Team | Description | +--------+ + + + + | 07/18/ | Preadmit | [facility] | No, Physician | | | 2019 | Visit | CENTER [facility] | | | | | | CLINIC [address] | | | | | | [place], [place] | | | | | | [address] | | | | | | [phone] | | | +--------+ + + + [...] for the 07/18/19 encounter (Preadmit Visit) with [facility] ROOM 5 Medication Sig Instructions Ascorbic [...] by elevating your feet Date Last Reviewed: 0939-9117 The [employer]. [address] [place] [address]. All righ ts reserved. This information is [...] [place] | | | | | | [address] | | | | | | | [...] | | LABORATORY | | | | Blvd;[place] [address] | | | | + + + + + + + + | Specimen | + + | Blood | + + + + + + + | Performing | Address | City/State/Zipcode | Phone Number | | Organization | | | | + + + + + | [facility] | [address] | [place] [address] | [phone] | + + + + + MRSA [...] [facility] | | | | performed at [facility];[address] | | LABORATORY | | | | [address];[place], [place] | | | | | | [address] | | | | + + + + + + + + | Specimen | + + | Tissue - Both | | anterior nares (body | | structure) | + + + + + + + | Performing | Address | City/State/Zipcode | Phone Number | | Organization | | | | + + + + + | [facility] | [address] | [place] [address] | [phone] | + + + + + Protime INR (07/18/2019 2:26 PM PDT) + + + + + + | Component | Value | Ref Range | Performed | Pathologist | | | | | At | Signature | + + + + + + | INR | 1.0Comment: REFERENCE | | [facility] | | | | RANGE:0.9 [...] | | | | | performed at [facility];[address] | | | | | | [address];[place] | | | | | | [address] | | | | + + + + + + + + | Specimen | + + | Blood | + + + + + + + | Performing | Address | City/State/Zipcode | Phone Number | | Organization | | | | + + + + + | [facility] | [address] | [place] [address] | [phone] | + + + + + PTT (07/18/2019 2:26 PM PDT) + + + + + + | Component | Value | Ref Range | Performed | Pathologist | | | | | At | Signature | + + + + + + | PTT | 29Comment: Testing | 23 - 32 seconds | [facility] | | | | performed at [facility];[address] | | LABORATORY | | | | [address];[place] | | | | | | [address] | | | | + + + + + + + + | Specimen | + + | Blood | + + + + + + + | Performing | Address | City/State/Zipcode | Phone Number | | Organization | | | | + + + + + | [facility] | [address] | [place] [address] | [phone] | + + + + + Comprehensive [...] W | | | | | | [facility], | | | | | | [place] [address] | | | | + + + + + + + + | Specimen | + + | Blood | + + + + + + + | Performing | Address | City/State/Zipcode | Phone Number | | Organization | | | | + + + + + | [facility] | [address] | [place] [address] | [phone] | + + + + + CBC [...] | | | | | [place] [address] | | | | + + + + + + + + | Specimen | + + | Blood | + + + + + + + | Performing | Address | City/State/Zipcode | Phone Number | | Organization | | | | + + + + + | [facility] | [address] | [place] [address] | [phone] | + + + + + ECG [...]
--- OUTSIDE RECORDS SUMMARY | ~2019-09-28 | XMS | Encounter Summary ---
Demographics + + + | Address | [address] | | | [place] [address] | + + + | Home Phone [...] Providers + +------+ + | Care Frame Gate Mortiser Operator Name | Role | Phone | [...] 2019 | | [facility] | [address] | [facility] | | | | ORTHOPEDIC SPINE | [place], | Healthcare Orders) | | | | [address] [place] | [place] [address] | | | | | [place] | [phone] | | | | | [address] | | | | | | [phone] | | | +--------+ + + + [...] [place] | | | | | | [id number] | | | | | | | | +--------+---------+ + + + documented as of this encounter Visit Diagnoses Not on filedocumented in this encounter"
--- OUTSIDE RECORDS SUMMARY | ~2019-09-28 | XMS | Encounter Summary ---
Demographics + + + | Address | [address] | | | [place] [address] | + + + | Home Phone [...] Team Providers + +------+ + | Care Landscape Nurseryman Name | Role | Phone | + +------+ + | Wendi Aiken | PCP | | + +------+ + Encounter Details +--------+ + + + + | Date | Type | Department | Care Team | Description | +--------+ + + + + | 06/07/ | Hospital | [facility] | Conversion | | | 2018 | Encounter | CENTER P[facility] | Transaction, | | | | | CLINIC [address] | Provider Unknown | | | | | [place], [place] | | | | | | [address] | (Fax) | | | | | [phone] | | | +--------+ + + + [...] [place] | | | | | | [address] | | | | | | | [...] | | | Basophils | performed at [facility], [address] | K/uL | LAB | | | | [address], | | | | | | [place] [address] | | | | + + + [...] | | | | | performed at [facility], [address] | | | | | | [facility], | | | | | | [place] [address] | | | | + + + [...]
--- OUTSIDE RECORDS SUMMARY | ~2019-09-28 | XMS | Encounter Summary ---
Demographics + + + | Address | [address] | | | [place] [address] | + + + | Home Phone | | + + + | Preferred Language | Unknown | + + + | Marital Status | Single | + + + | Congregational Affiliation | NON | + + + [...] Providers + +------+ + | Care Highway Engineer Name | Role | Phone | [...] | | 2015 | Encounter | at [facility] [address] | [address] | havea problem with | | | | Abbe Soto Mailcode: | [address] [facility], | my heart. | | | | [address] | [place] [address] | | | | | Health and Healing, | [phone] | | | | | [facility] | | | | | | floor [place], [place] | | | | | | [address] | | | | | | [phone] | | | +--------+ + + + [...]
--- OUTSIDE RECORDS SUMMARY | ~2019-09-28 | XMS | Encounter Summary ---
Demographics + + + | Address | [address] | | | [place] [address] | + + + | Home Phone [...] Team Providers + +------+ + | Care Neurosurgery Spine Physician Name | Role | Phone | [...] + + | 09/04/ | Telephone | [facility] | Shay Dietz | Appointment | | 2012 | | PHYSIATRY [address] | T, [address] | | | | | [place], | [place], [place] | | | | | [place] [address] | [address] | | | | | [phone] | | | +--------+ + + + [...] [place] | | | | | | [address] | | | | | | | | +--------+---------+ + + + documented as of this encounter Visit Diagnoses Not on filedocumented in this encounter"
--- OUTSIDE RECORDS SUMMARY | ~2019-09-28 | XMS | Encounter Summary ---
Demographics + + + | Address | [address] | | | [place] [address] | + + + | Home Phone [...] Team Providers + +------+ + | Care Side Guider Name | Role | Phone | + [...] [address] | | | | | [place], | [place] [facility], | | | | | [place] [address] | [place] [address] | | | | | [phone] | [phone] | | | | | | | [...] [place] | | | | | | [address] | | | | | | | | +--------+---------+ + + + documented as of this encounter Visit Diagnoses Not on filedocumented in this encounter"
--- OUTSIDE RECORDS SUMMARY | ~2019-09-28 | XMS | Encounter Summary ---
Demographics + + + | Address | [address] | | | [place] [address] | + + + | Home Phone [...] Author + + + | Author | [facility] | + + + | Organization | [facility] | + + + | Address | Unknown | + + + | Phone | Unavailable | + + + Support + + +---------+ + | Name | Relationship | Address | Phone | + + +---------+ + | Royce Menchaca | ECON | Unknown | | + + +---------+ + Care Team Providers + +------+ + | Care Log Peeler Name | Role | Phone | + [...] | Chest | Referring | [place] [address] | | | | | pressure | Provider Per | [address] | | | | | Procedures | Patient NO | [address] | | | | | IN NEW | REFERRING | [place], [place] | | | | | PATIENT | PROVIDER PER | [address] Phone: | | | | | LEVEL V IN | PT | [phone] | | | | | OFFICE/OUTPT | | Fax: | | | | | | | [phone] | | | | | VISIT,EST,LE | | | | | | | GINA III IN | | | | | | | OFFICE/OUTPT | | | | | | | | | | | | | | VISIT,EST,LE | | | | | | | VL IV IN | | | | | | [...] | 2015 | Visit | at [facility] [address] | [address] | unspecified type | | | | [place] Mailcode: | [address] [facility], | (Primary Dx); | | | | [address] | [place] [address] | Palpitations | | | | Health and Healing, | [phone] | | | | | [facility] | | | | | | floor [place], [place] | | | | | | [address] | | | | | | [phone] | | | +--------+---------+ + + + [...] per Dr. Fuchs's note. Tiago Blake DO Side Seam Envelope Machine Operator Clinical phlebotomy specialist/ Division of Cardiovascular Medicine Airam Nicole Md - 03/09/2016 3:27 PM PDT [facility] General Cardiology New Patient Evaluation Patient [...] ED. She was then transf erred to [facility] in [facility] where she was put into the ICU [...] every couple of weeks. She comes to [facility] today because she wants a [...] | + + + + + | [facility] LIPID LAB | [address] | [place], [place] | | | | [address] | [address] | | + + + + + documented in this encounter Visit Diagnoses + + | Diagnosis | + + | Chest pain, unspecified type - Primary | + + | Palpitations | + + documented in this encounter
--- OUTSIDE RECORDS SUMMARY | ~2019-09-28 | XMS | Encounter Summary ---
Demographics + + + | Address | [address] | | | [place] [address] | + + + | Home Phone [...] Team Providers + +------+ + | Care Bacteriologist Dairy Name | Role | Phone | + [...] | Cervical | Darrin | [address] | | | | | radiculopath | [address] | [place], | | | | | y | [address] | [place] | | | | | Myelopathy | [address] | [address] | | | | | (HCC) | [place], [place] | Phone: | | | | | Procedures | [address] | [phone] | | | | | MRI Cervical | Phone: | Fax: | | | | | Spine wo | [phone] | [phone] | | | | | Contrast | Fax: | | | | | | | [phone] | | +--------+--------+ + + + + [...] | region | [address] | AV [place], | | | | | Chronic low | [place], [place] | [place] [address] | | | | | back pain | [address] | Phone: | | | | | Facet | Phone: | [phone] | | | | | arthritis of | [phone] | Fax: | | | | | lumbar | Fax: | [phone] | | | | | region | [phone] | | | | | | Scoliosis [...] | | | | | | | [place] OFFICE | | | | | | [...] + + | 07/26/ | Office | [facility] | Romain Darrin | Foraminal stenosis | | 2013 | Visit | NEUROSURGERY [address] | [address] | of lumbar region - | | | | [address] | [address] | left L5-S1 (Primary | | | | [place], [place] | [place] [address] | Dx); Scoliosis of | | | | [address] | [phone] | lumbar spine; Left | | | | [phone] | | lumbar | | | | [...] t from the original. PEE Vang [address] [facility], [address] [place], [place] [address] FAX: NEUROSURGERY HISTORY AND PHYSICAL EXAMINATION CHIEF [...] ently a also seen a surgeon in [facility] he stated she did not need to have surgery pawel dave to her report. She also reports she had a recent MRI in the [facility] which I do not marcos [...] Intrinsics 5 4 Ulnar Intrinsics 5 4 Gas Combustion Engineer Strength 5 4 Hip Flexion 5 4 [...] coordinating her care. ELECTRONICALLY SIGNED BY: PEE Vagn, 07/26/2014 12:03 documented in th is encounter Plan of Treatment +--------+---------+ + + + | Date | Type | Specialty | Care Team | Description | +--------+---------+ + + + | 10/15/ | Office | Pain Medicine | Denys Sibley, | | | 2018 | Visit | | DO Siri [place] | | | | | | [facility] [place] | | | | | | [address] | | | | | | | [...]
--- OUTSIDE RECORDS SUMMARY | ~2019-09-28 | XMS | Encounter Summary ---
Demographics + + + | Address | [address] | | | [place] [address] | + + + | Home Phone [...] Team Providers + +------+ + | Care Lens Marker Name | Role | Phone | + [...] for | | 2016 | | at [facility] [address] | [address] | new pt appt) | | | | [place] Mailcode: | [address] [facility] | | | | | [address] | [place] [address] | | | | | Health and Healing, | [phone] | | | | | [facility] | | | | | | floor [place], [place] | | | | | | [address] | | | | | | [phone] | | | +--------+ + + + [...]
--- OUTSIDE RECORDS SUMMARY | ~2019-09-28 | XMS | Encounter Summary ---
Demographics + + + | Address | [address] | | | [place] [address] | + + + | Home Phone [...] + + + | Author | [facility] | + + + | Organization | [facility] | + + + | Address | Unknown | + + + | Phone | Unavailable | + + + Support + + +---------+ + | Name | Relationship | Address | Phone | + + +---------+ + | Royce Menchaca | ECON | Unknown | | + + +---------+ + Care Team Providers + +------+ + | Care Manager Planning Name | Role | Phone | + [...] for | | 2016 | | at [facility] [address] | [address] | new pt appt) | | | | Mcadams Brittany Mailcode: | [address] [facility] | | | | | [address] | [place] [address] | | | | | Health and Healing, | [phone] | | | | | [facility] | | | | | | floor [place], [place] | | | | | | [address] | | | | | | [phone] | | | +--------+ + + + [...]
--- OUTSIDE RECORDS SUMMARY | ~2019-09-28 | XMS | Encounter Summary ---
Demographics + + + | Address | [address] | | | [place] [address] | + + + | Home Phone [...] Team Providers + +------+ + | Care Sleeping Room Cleaner Name | Role | Phone | + +------+ + | Concepción Gallardo NP | PCP | | + +------+ + Encounter Details +--------+ + + + + | Date | Type | Department | Care Team | Description | +--------+ + + + + | 07/17/ | Hospital | [facility] | Paty, | Intractable low back | | 2014 - | Encounter | [facility] | MD [address] | pain | | | | CLINICAL DECISION | [address] | | | 07/18/ | | [address] | [place] [address] | | | 2013 | | [place], [place] | [phone] | | | | | [address] | | | | | | [phone] | | | +--------+ + + + [...] Date of Service: 07/18/14 1131 Status: Signed Rn Testing: Bob Valverde DO (Physician) [facility] Service: Hospitalist Discharge Summary Date of [...] IV Fentanyl, a s well as oral [place] 10's, Zanaflex, Klonopin, and PT was ordered. [...] system. Multiplanar sequences according to a [facility] protocol were acquired without contrast. FINDINGS: There [...] Date of Service: 07/18/14 1310 Status: Signed Rn Testing: Nati Mena RN (Registered Nurse) Pt discharged [...] Notes by Nati Mena RN at 07/18/14 2217 Author: Nati Mena RN Service: (none) Author Type: Registered Nurse Filed: 07/18/14 0213 Date of Service: 07/18/14 1245 Status: Signed Rn Testing: Nati Mena RN (Registered Nurse) Pt to [...] Date of Service: 07/18/14 1245 Status: Addendum Rn Testing: Sj Bender PT (Physical Therapist) Related Notes: [...] Recommended (has FWW) Prior Function Level of [place] Modified independent with functional mobility;Modified independent wi [...] G Codes Mobility: Walking & Moving Around: $[id number] Current Status : CK - At least 40% but less than 60% impaired, limited or restricted $G8919 Projected Goal Status : CK - At [...] 0549 Date of Service: 07/18/14509 Status: Signed Rn Testing: Dion Goldsmith RN (Registered Nurse) Pt awakened by label fuser tender and states she needs to go to [...] 0436 Date of Service: 07/18/14409 Status: Signed Rn Testing: Dion Goldsmith RN (Registered Nurse) Pt's b/p slightly low. POWER SHOVEL MECHANIC reports pt woke up to ask what her blood pressure is. Pt sleepin g now. Plan to recheck B/P in an hour. onver hiren Akosua, Provider Unknown - 07/18/2014 3:29 AM PDT Progress Notes by Sofi Sol RPH at 07/18/14328 Author: Sofi Sol RPH Service: (none) Author Type: Pharmacist Filed: 07/18/14328 Date of Service: 07/18/14328 Status: Signed Rn Testing: Sofi Sol RPH (Pharmacist) Clinical Pharmacy Note: [...] [place] | | | | | | [address] | | | | | | | [...] | | | Fingerstick | performed at [facility] | | LAB | | | | [address];[place], [place] | | | | | | [address] | | | | + + + [...] | | | Fingerstick | performed at [facility];[address] | | LAB | | | | [address];[place] | | | | | | [address] | | | | + + + [...] EXTERNAL | | | | performed at [facility], [address] | | LAB | | | | [address], | | | | | | [place] [address] | | | | + + + + + + | RED CELL | 4.16Comment: Testing | 3.70 - 5.10 | EXTERNAL | | | COUNT | performed at [facility], [address] | M/uL | LAB | | | | [address], | | | | | | [place] [address] | | | | + + + + + + | Hgb | 11.6Comment: Testing | 11.3 - 15.5 | EXTERNAL | | | | performed at [facility], [address] | g/dL | LAB | | | | [address], | | | | | | [place] [address] | | | | + + + + + + | Hematocrit, | 36.4Comment: Testing | 34.0 - 46.0 % | EXTERNAL | | | POC | performed at [facility], [address] | | LAB | | | | [address], | | | | | | [place] [address] | | | | + + + + + + | MCV | 87.5Comment: Testing | 80.0 - 100.0 fl | EXTERNAL | | | | performed at [facility], [address] | | LAB | | | | [address], | | | | | | [place] [address] | | | | + + + + + + | MCH | 27.9Comment: Testing | 27.0 - 34.0 pg | EXTERNAL | | | | performed at [facility], [address] | | LAB | | | | [address], | | | | | | [place] [address] | | | | + + + + + + | MCHC | 31.9 (L)Comment: Testing | 32.0 - 35.5 | EXTERNAL | | | | performed at [facility], [address] | g/dL | LAB | | | | [address], | | | | | | [place] [address] | | | | + + + + + + | RDW-CV | 43.8Comment: Testing | 37 - 53 fl | EXTERNAL | | | | performed at [facility], [address] | | LAB | | | | [address], | | | | | | [place] [address] | | | | + + + + + + | Platelet | 244Comment: Testing | 150 - 400 K/uL | EXTERNAL | | | Count | performed at [facility], [address] | | LAB | | | Plasma | [address], | | | | | | [place] [address] | | | | + + + + + + | MPV | 8.3Comment: Testing | fl | EXTERNAL | | | | performed at [facility], [address] | | LAB | | | | [address], | | | | | | [place] [address] | | | | + + + + + + | Differentia | AUTOMATEDComment: | | EXTERNAL | | | l Type | Testing performed at | | LAB | | | | [facility], [address] | | | | | | [place] | | | | | | [address] | | | | + + + + + + | % Segmented | 40.1Comment: Testing | % | EXTERNAL | | | | performed at [facility], [address] | | LAB | | | Neutrophils | [address], | | | | | | [place] [address] | | | | + + + + + + | % | 48.1Comment: Testing | % | EXTERNAL | | | Lymphocytes | performed at [facility], [address] | | LAB | | | | [address], | | | | | | [place] [address] | | | | + + + + + + | % Monocytes | 9.5Comment: Testing | % | EXTERNAL | | | | performed at [facility], [address] | | LAB | | | | [address], | | | | | | [place] [address] | | | | + + + + + + | % | 1.9Comment: Testing | % | EXTERNAL | | | Eosinophils | performed at [facility], [address] | | LAB | | | | [address], | | | | | | [place] [address] | | | | + + + + + + | % Basophils | 0.4Comment: Testing | % | EXTERNAL | | | | performed at [facility], [address] | | LAB | | | | [address], | | | | | | [place] [address] | | | | + + + + + + | Absolute | 2.0Comment: Testing | 1.9 - 7.4 K/uL | EXTERNAL | | | Segmented | performed at [facility], [address] | | LAB | | | Neutrophils | [address], | | | | | | [place] [address] | | | | + + + + + + | Absolute | 2.4Comment: Testing | 1.0 - 3.9 K/uL | EXTERNAL | | | Lymphocytes | performed at [facility], [address] | | LAB | | | | [address], | | | | | | [place] [address] | | | | + + + + + + | Absolute | 0.5Comment: Testing | 0 - 0.8 K/uL | EXTERNAL | | | Monocytes | performed at [facility], [address] | | LAB | | | | [address], | | | | | | [place] [address] | | | | + + + + + + | Absolute | 0.1Comment: Testing | 0 - 0.5 K/uL | EXTERNAL | | | Eosinophils | performed at [facility], [address] | | LAB | | | | [address], | | | | | | [place] [address] | | | | + + + + + + | Absolute | 0.0Comment: Testing | 0 - 0.1 K/uL | EXTERNAL | | | Basophils | performed at [facility], [address] | | LAB | | | | [address], | | | | | | [place] [address] | | | | + + + [...] | | | | | [place] [address] | | | | + + + [...] EXTERNAL | | | | performed at [facility], [address] | | LAB | | | | [address], | | | | | | [place] [address] | | | | + + + [...] | | | | | [place] [address] | | | | + + + [...] + + | Hemoglobin | 5.2Comment: The Cymraes | 4.0 - 6.0 % | EXTERNAL [...] | | | | | performed at [facility], [address] | | | | | | [address], | | | | | | [place] [address] | | | | + + + [...] | | | | | performed at [facility], [address] | | | | | | [address], | | | | | | [place] [address] | | | | + + + [...] | | | Direct | performed at [facility], [address] | | LAB | | | | [address], | | | | | | [place] [address] | | | | + + + [...] | | | | | [place] [address] | | | | + + + + + + | K | 4.0Comment: Testing | 3.5 - 4.9 | EXTERNAL | | | | performed at [facility], [address] | mmol/L | LAB | | | | [address], | | | | | | [place] [address] | | | | + + + + + + | Cl | 106Comment: Testing | 99 - 109 mmol/L | EXTERNAL | | | | performed at [facility], [address] | | LAB | | | | [address], | | | | | | [place] [address] | | | | + + + + + + | CO2 | 28Comment: Testing | 23 - 32 mmol/L | EXTERNAL | | | | performed at [facility], [address] | | LAB | | | | [address], | | | | | | [place] [address] | | | | + + + + + + | Anion Gap | 8Comment: Testing | 5 - 20 mmol/L | EXTERNAL | | | | performed at [facility], [address] | | LAB | | | | [address], | | | | | | [place] [address] | | | | + + + + + + | Glucose, | 82Comment: Testing | 65 - 99 mg/dL | EXTERNAL | | | Fasting | performed at [facility], [address] | | LAB | | | | [address], | | | | | | [place] [address] | | | | + + + + + + | BUN | 18Comment: Testing | 8 - 25 mg/dL | EXTERNAL | | | | performed at [facility], [address] | | LAB | | | | [address], | | | | | | [place] [address] | | | | + + + + + + | Creatinine | 0.61Comment: Testing | 0.50 - 1.00 | EXTERNAL | | | | performed at [facility], [address] | mg/dL | LAB | | | | [address], | | | | | | [place] [address] | | | | + + + + + + | BUN/Creatin | 30Comment: Testing | | EXTERNAL | | | ine Ratio | performed at [facility], [address] | | LAB | | | | [address], | | | | | | [place] [address] | | | | + + + + + + | Calcium | 8.7Comment: Testing | 8.5 - 10.2 | EXTERNAL | | | | performed at [facility], [address] | mg/dL | LAB | | | | [address], | | | | | | [place] [address] | | | | + + + + + + | Protein, | 5.9 (L)Comment: Testing | 6.3 - 8.2 g/dL | EXTERNAL | | | Total | performed at [facility], [address] | | LAB | | | | [address], | | | | | | [place] [address] | | | | + + + + + + | Albumin | 3.7Comment: Testing | 3.3 - 4.8 g/dL | EXTERNAL | | | | performed at [facility], [address] | | LAB | | | | [address], | | | | | | [place] [address] | | | | + + + + + + | Globulin | 2.2Comment: Testing | 1.3 - 4.9 g/dL | EXTERNAL | | | | performed at [facility], [address] | | LAB | | | | [address], | | | | | | [place] [address] | | | | + + + + + + | A/G Ratio | 1.7Comment: Testing | 1.0 - 2.4 | EXTERNAL | | | | performed at [facility], [address] | | LAB | | | | [address], | | | | | | [place] [address] | | | | + + + + + + | Bilirubin | 0.3Comment: Testing | 0.1 - 1.5 mg/dL | EXTERNAL | | | Total | performed at [facility], [address] | | LAB | | | | [address], | | | | | | [place] [address] | | | | + + + + + + | ALP, | 86Comment: Testing | 35 - 115 U/L | EXTERNAL | | | External | performed at [facility], [address] | | LAB | | | | [address], | | | | | | [place] [address] | | | | + + + [...] | | | | | [place] [address] | | | | + + + [...] | | | | | | at [facility], [address] | | | | | | [address], | | | | | | [place] [address] | | | | + + + [...] | | | Fingerstick | performed at [facility];[address] | | LAB | | | | [address];[place] | | | | | | [address] | | | | + + + [...] performed on a 1.5 | | | Arehta MRI system. Multiplanar sequences according to a [...]
--- OUTSIDE RECORDS SUMMARY | ~2019-09-28 | XMS | Encounter Summary ---
Demographics + + + | Address | [address] | | | [place] [address] | + + + | Home Phone [...] Team Providers + +------+ + | Care Forestry And Wildlife Manager Name | Role | Phone | + +------+ + | Wendi Aiken | PCP | | + +------+ + Encounter Details +--------+ + + + + | Date | Type | Department | Care Team | Description | +--------+ + + + + | 05/21/ | Orders Only | [facility] | Provider, | | | 2019 | | SYSTEM GENERIC OP | [address] | | | | | [address] | [address] | | | | | [address] [place], [place] | [place] [address] | | | | | [address] | | | | | | [phone] | | | +--------+ + + + [...] [place] | | | | | | [id number] | | | | | | | | +--------+---------+ + + + documented as of this encounter Visit Diagnoses Not on filedocumented in this encounter"
--- OUTSIDE RECORDS SUMMARY | ~2019-09-28 | XMS | Encounter Summary ---
Demographics + + + | Address | [address] | | | [place] [address] | + + + | Home Phone [...] Providers + +------+ + | Care Sheep Sorter Name | Role | Phone | + +------+ + | Concepción Gallardo NP | PCP | | + +------+ + Encounter Details +--------+ + + + + | Date | Type | Department | Care Team | Description | +--------+ + + + + | 11/26/ | Hospital | [facility] | Conversion | Peripheral vertigo, | | 2016 | Encounter | [facility] MRI [address] | Transaction, | unspecified | | | | [address] | Provider Unknown | laterality; | | | | [place], [place] | | Post-concussion | | | | [address] | (Fax) | vertigo | | | | [phone] | | | +--------+ + + + [...] Note by Rosy Bautista RN at 11/26/15 3939 Author: Rosy Bautista RN Service: (none) Author Type: Registered Nurse Filed: 11/26/15 7718 Date of Service: 11/26/15 8196 Status: Signed Steelscope Operator: Rosy Bautista RN (Registered Nurse) Responded to [...] [place] | | | | | | [id number] | | | | | | | [...] | | | Fingerstick | performed at [facility];[address] | | LAB | | | | [address];[place], [place] | | | | | | [address] | | | | + + + [...]
--- OUTSIDE RECORDS SUMMARY | ~2019-09-28 | XMS | Encounter Summary ---
Demographics + + + | Address | [address] | | | [place] [address] | + + + | Home Phone [...] + +------+ + | Care Director Of Physiotherapy Services Name | Role | Phone | [...] 2013 | | PHYSI[address]RY [address] | [address] | | | | | [place], | | | | | | [place] [address] | | | | | | [phone] | | | +--------+ + + + [...] [place] | | | | | | [address] | | | | | | | | +--------+---------+ + + + documented as of this encounter Visit Diagnoses Not on filedocumented in this encounter"
--- OUTSIDE RECORDS SUMMARY | ~2019-09-28 | XMS | Encounter Summary ---
Demographics + + + | Address | [address] | | | [place] [address] | + + + | Home Phone [...] Team Providers + +------+ + | Care Skin Washer Name | Role | Phone | + +------+ + | Wendi Aiken | PCP | | + +------+ + Encounter Details +--------+ + + + + | Date | Type | Department | Care Team | Description | +--------+ + + + + | 04/07/ | Imaging | [facility] | Provider, | | | 2018 | Exam | MED CTR EXTERNAL | [address] | | | | | IMAGING | [address] | | | | | [phone] | [place] [address] | | +--------+ + + + + [...] | | | | | [address] [facility] | | | | | | [id number] | | | | | | | [...]
--- OUTSIDE RECORDS SUMMARY | ~2019-09-28 | XMS | Encounter Summary ---
Demographics + + + | Address | [address] | | | [place] [address] | + + + | Home Phone [...] Providers + +------+ + | Care Assembly Riveter Name | Role | Phone | + +------+ + | Wendi Aiken | PCP | | + +------+ + Encounter Details +--------+ + + + + | Date | Type | Department | Care Team | Description | +--------+ + + + + | 07/12/ | Hospital | [facility] | Sj Valdes MD | Left lumbar | | 2017 | Encounter | MED CTR XRAY [address] | [address] | radiculopathy; DISC | | | | [place] | [place] [address] | DISEASE, LUMBAR; | | | | [place] [address] | [phone] | Back pain, | | | | [phone] | | unspecified back | | | [...] [place] | | | | | | [address] | | | | | | | [...]
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
--- OUTSIDE RECORDS SUMMARY | ~2019-09-28 | XMS | Encounter Summary ---
Demographics + + + | Address | [address] | | | [place] [address] | + + + | Home Phone [...] Providers + +------+ + | Care Applications Tester Name | Role | Phone | [...] + + | 04/25/ | Emergency | [facility] | Billy Romo, | Concussion, without | | 2016 | | HOSPITAL EMERGENCY | [address] [facility] | LOC, initial | | | | [place] [address] MEDICAL | [employer], | encounter (Primary | | | | [employer], [place] | [place] [address] | Dx); Cervical | | | | [address] | [phone] | strain, acute, | | | | [phone] | | initial encounter | +--------+ + [...] sent through Care Everywhere.CERVICAL STRAIN , UNDERSTANDING (ITALIAN)CONCUSSION, AFTER (ITALIAN)CONCUSSION, COPING WITH (ITALIAN)manish disla in this encounter Medications at Time [...] [place] | | | | | | [address] | | | | | | | [...] L?MRN: | | | | | | [id number] | | | [id number] | | | his | | | [...] | | | St. | | | [place] | | | y H. | | [...] | | | St. | | | [place] | | | y | | | [...] | | | n, | | | [facility], | | | [facility] [place] | | | Primar | | | [...] Performed At | + + + | [address] | | | [place], [place] [address] | | | NAME: KORI HARMON DATE: 04/25/2017 | | | : 1945 PT GENDER: F ROOM: ER PHYSICIAN: | | | BILLY ROMO PID#: [id number] CC TO: MR#: | | | PROCEDURE: [...] Rad Results In - 04/27/2017 9:10 AM [facility] | | [address] | | [place], [place] [address] | | | | | | NAME: KORI HARMON DATE: 04/25/2017 | | : 1945 PT GENDER: F ROOM: ER | | PHYSICIAN: BILLY ROMO PID#: [id number] | | CC TO: MR#: | | [...] Performed At | + + + | [address] | | | [place], [place] [address] | | | NAME: KORI HARMON DATE: 04/25/2017 | | | : 1945 PT GENDER: F ROOM: ER PHYSICIAN: | | | BILLY ROMO PID#: [id number] CC TO: MR#: | | | PROCEDURE: [...] Results In - 04/27/2017 9:10 AM PDT [facility] | | [address] [place] [address] | | [place], [place] [address] | | | | | | NAME: KORI HARMON DATE: 04/25/2017 | | : 1945 PT GENDER: F ROOM: ER | | PHYSICIAN: BILLY ROMO PID#: [id number] | | CC TO: MR#: | | [...] | + + + + + | [facility] | [address] | [place] [address] | [phone] | | HOSPITAL LABORATORY | | | [...] 99 | 70 - 110 mg/dL | [facility] | | | | | [facility] | | | | | | [facility]OSPITAL | | | | | | LABORATORY | | + + + + + + | BUN | 21 | 5 - 26 mg/dL | [facility] | | | | | | [facility] | | | | | | HOSPITAL | | | | | | LABORATORY | | + + + + + + | Creatinine | 0.83 | >.60-<1.30 | [facility] | | | | | mg/dL | COMMUNITY | | | | | | HOSPITAL | | | | | | LABORATORY | | + + + + + + | eGFR if not | >60Comment: GLOMERULAR | >=60 | [facility] | | | | FILTRATION | mL/min/1.73m2 | [facility] | | | CHILEAN | RATE,ESTIMATED | | HOSPITAL | | | | mL/min/1.18v0Vyag than | | LABORATORY | | | [...] | + + + + + | [facility] | [address] | [place] [address] | [phone] | | HOSPITAL LABORATORY | | | | + + + + + CBC with Differential (04/25/2017 7:20 PM PDT) + + + + + + | Component | Value | Ref Range | Performed | Pathologist | | | | | At | Signature | + + + + + + | WBC | 6.1 | >4.5-<11.0 K/uL | [facility] | | | | [...] | + + + + + | [facility] | [address] | [place] [address] | [phone] | | HOSPITAL LABORATORY | | | | + + + + + documented in this encounter Visit Diagnoses + + | Diagnosis | + + | Concussion, without LOC, initial encounter - Primary | + + | Cervical strain, acute, initial encounter | + + documented in this encounter
--- OUTSIDE RECORDS SUMMARY | ~2019-09-28 | XMS | Encounter Summary ---
Demographics + + + | Address | [address] | | | [place] [address] | + + + | Home Phone [...] Team Providers + +------+ + | Care Ballast Cleaning Machine Operator Name | Role | Phone | + +------+ + | Wendi Aiken | PCP | | + +------+ + Encounter Details +--------+ + + + + | Date | Type | Department | Care Team | Description | +--------+ + + + + | 07/12/ | Hospital | [facility] | Sj Valdes MD | Left lumbar | | 2017 | Encounter | MED CTR XRAY [address] | [address] | radiculopathy; DISC | | | | [place] | [place] [address] | DISEASE, LUMBAR; | | | | [place] [address] | [phone] | Back pain, | | | | [phone] | | unspecified back | | | [...] [place] | | | | | | [address] | | | | | | | [...]
--- OUTSIDE RECORDS SUMMARY | ~2019-09-28 | XMS | Encounter Summary ---
Demographics + + + | Address | [address] | | | [place] [address] | + + + | Home Phone [...] Team Providers + +------+ + | Care Ergonomist Name | Role | Phone | + [...] | | | [facility] [address] [place], [place] | | | | | [address] | [address] | | | | | [place], [place] | | | | | | [address] | | | | | | [phone] | | | +--------+ + + + [...] [place] | | | | | | [address] | | | | | | | | +--------+---------+ + + + documented as of this encounter Visit Diagnoses Not on filedocumented in this encounter"
--- OUTSIDE RECORDS SUMMARY | ~2019-09-28 | XMS | Encounter Summary ---
Demographics + + + | Address | [address] | | | [place] [address] | + + + | Home Phone [...] + +------+ + | Care Accounts Payable Associate Name | Role | Phone | + +------+ + | Wendi Aiken | PCP | | + +------+ + Encounter Details +--------+ + + + + | Date | Type | Department | Care Team | Description | +--------+ + + + + | 04/07/ | Imaging | [facility] | Provider, | | | 2018 | Exam | [facility] | MD [address] | | | | | IMAGING | [address] | | | | | [phone] | [place] [address] | | +--------+ + + + + [...] [facility] | | | | | | [id number] | | | | | | | [...]
--- OUTSIDE RECORDS SUMMARY | ~2019-09-28 | XMS | Encounter Summary ---
Demographics + + + | Address | [address] | | | [place] [address] | + + + | Home Phone [...] Providers + +------+ + | Care Civil Rights Attorney Name | Role | Phone | + +------+ + | Concepción Glalardo NP | PCP | | + +------+ + Reason for Visit + + + | Reason | Comments | + + + | Appointment | Increased pain-requesting appointmnet jarroder | + + + Encounter Details +--------+ + + + + | Date | Type | Department | Care Team | Description | +--------+ + + + + | 10/29/ | Telephone | [facility] | Sj Valdes MD | Appointment | | 2013 | | NEUROSURGERY [address] | [address] | (Increased | | | | [address] | [place] [address] | pain-requesting | | | | [place] | [phone] | [facility] | | | | [address] | | | | | | [phone] | | | +--------+ + + + [...] [place] | | | | | | [id number] | | | | | | | | +--------+---------+ + + + documented as of this encounter Visit Diagnoses Not on filedocumented in this encounter"
--- OUTSIDE RECORDS SUMMARY | ~2019-09-28 | XMS | Encounter Summary ---
Demographics + + + | Address | [address] | | | [place] [address] | + + + | Home Phone [...] Team Providers + +------+ + | Care Meter Tester Primary Name | Role | Phone | + +------+ + | Miquel Calhoun MD | PCP | | + +------+ + Encounter Details +--------+ + + + + | Date | Type | Department | Care Team | Description | +--------+ + + + + | 11/14/ | Hospital | [facility] | Earnest Acosta MD | Hypothyroid; History | | 2013 - | Encounter | MEDICAL CENTER | [address] [facility] | of oral aphthous | | | | CLINICAL DECISION | [address], | ulcers; Anemia, | | | | [address] | [place] [address] | unspecified; | | 2013 | | [place], [place] | [phone] | Aspiration pneumonia | | | | [address] | | ([facility]); COPD | | | | [phone] | | (chronic obstructive | | | | | | pulmonary disease) | | | | | | ([facility]LY [facility]); Generalized | | | | | | [...] 1140 Date of Service: 11/19/131920 Status: Signed Custom Shop Worker: Fran Barnes MD (Physician) Related Notes: Original Note by Fran Barnes MD (Physician) filed at 11/20/13 1418 Patient ID: Ronald Gutierreztyfawthrop [id number] 68 y.o. 1945 Admit date: 11/14/2013 Discharge [...] - 99 mg/dL Final Testing performed at [facility], [address] [place] [address] BUN Date Value Range Status 11/19/2013 12 8 - 25 mg/dL Final Testing performed at [facility], [address] [place] [address] CREATININE Date Value Range Status 11/19/2013 0.80 0.50 - 1.00 mg/dL Final Testing performed at [facility], [address] [place] [address] 21294 BUN/CREAT Date Value Range Status 11/19/2013 15 Final Testing performed at [facility], [address] [place] [address] 85482 TOTAL PROTEIN Date Value Range Status 11/17/2013 5.2* 6.3 - 8.2 g/dL Final Testing performed at [address] [address] GLOBULIN Date Value Range Status 11/17/2013 2.1 1.3 - 4.9 g/dL Final Testing performed at [address] [address] TBIL Date Value Range Status 11/17/2013 0.6 0.1 - 1.5 mg/dL Final Testing performed at [address] [address] ALT Date Value Range Status 11/17/2013 21 10 - 65 U/L Final Testing performed at [facility], [address] [place] [address] 34017 AST Date Value Range Status 11/17/2013 19 10 - 45 U/L Final Testing performed at [address] [address] SODIUM Date Value Range Status 11/19/2013 133* 135 - 143 mmol/L Final Testing performed at [address] [address] POTASSIUM Date Value Range Status 11/19/2013 3.9 3.5 - 4.9 mmol/L Final Testing performed at [facility], [address] [place] [address] CHLORIDE Date Value Range Status 11/19/2013 101 99 - 109 mmol/L Final Testing performed at [facility], [address] [place] [address] CO2 Date Value Range Status 11/19/2013 24 23 - 32 mmol/L Final Testing performed at [facility], [address] [place] [address] ANION GAP AGAP Date Value Range Status 11/19/2013 12 5 - 20 mmol/L Final Testing performed at [facility], [address] [place] [address] X-ray Lumbar Spine Limited 2-3 Views 11/18/2013 [...] the emergency department, who was admitted to [facility] on November 14, 2013, when she was found to be unresponsive by EMS and thought to be secondary to Flexeril overdose and alcohol intoxication, and alcohol level was more than 300 , and patient was found to be hypotensive. Hence, she was intubated and brought to the [facility] from outside hospital and was started on dopamine and norepinephri ne and Tylenol level was checked, which was 44, for which she was put on acetylcysteine prot ocol and was transferred to medical floor on November 15, 2013, and Dr. Moore from psychia tric service was consulted after patient stabilized and she was taken to [facility] under Dr. Diana's care. 2. Chronic back pain, for which patient was discharged to [facility] in p.r.n. 3. Aphthous [...] rash noted. No erythema. No pallor. Disposition: [facility] in patient psychiatric facility Patient Instructions: [...] file for this visit. Miquel Calhoun MD [address] [place] [address] In 1 week Signed: FRAN BARNES 11/19/2013 [...] 11/19/132053 Date of Service: 11/19/132029 Status: Signed Custom Shop Worker: Ruby Chávez RN (Registered Nurse) Pt currently on psychiatric hold; Transport here to take pt to [facility]. Pt complains of yessica n; Given Ultram (See MAR) VSS; Afebrile; No SOB. Nurse to nurse given to [facility]. Pt dc'd by bebo. Ruby Chávez 11/19/2013 Fran Porter MD - 11/19/2013 3:24 PM PSTFormatting of this note might be different from the or iginal. Progress Notes by Fran Barnes MD at 11/19/131523 Author: Fran Barnes MD Service: Hospitalist Author Type: Physician Filed: 11/19/131535 Date of Service: 11/19/131523 Status: Addendum Custom Shop Worker: Fran Barnes MD (Physician) Related Notes: Original Note by Fran Barnes MD (Physician) filed at 11/19/13 1535 [facility] Service: Hospitalist Progress Note Ronald Kowthrleighann 68 y.o. [id number] 306/306-2 female MIQUEL Suarez [place] [facility] Day: LOS: 5 days Patient Summary: .A 68-year-old female with past medical history of depression with m ultiple suicide attempts in the past, history of COPD, which she attributes to paint inhalat ion, history of anxiety, restless leg syndrome, GERD, diabetes mellitus type 2, diet control led, hypothyroidism, who was admitted to [facility] on the November 14, when the patient was found to be unresponsive by EMS and thought to be secondary to Fle xeril overdose and alcohol intoxication as her alcohol level was more than 300. The patient was found to be hypertensive, hence she was intubated and brought to the [facility] where she was put on dopamine, [...] by PCR (TAT 3 hr in house) [[id number]] Collected:11/19/13 0703 Specimen Information:Stool / Stool Updated:11/19/13806 Toxigenic C Difficile NEGATIVE 027 NAP1 BI 027 NAP1 BI PRESUMPTIVE NEGATIVE Magnesium [[id number]] Collected:11/19/13424 MAGNESIUM 2.2 mg/dL Updated:11/19/13806 Phosphorus [[id number]] Collected:11/19/13424 PHOSPHORUS 4.0 mg/dL Updated:11/19/13806 Basic metabolic panel [[id number]] (Abnormal) Collected:11/19/13424 Specimen Information:Blood Updated:11/19/13 0544 SODIUM 133 (L) mmol/L POTASSIUM 3.9 mmol/L CHLORIDE 101 mmol/L CO2 24 mmol/L ANION GAP AGAP 12 mmol/L GLUCOSE 108 (H) mg/dL BUN 12 mg/dL CREATININE 0.80 mg/dL BUN/CREAT 15 CALCIUM 9.2 mg/dL EGFR >60 mL/min/1.73m2 CBC w/auto diff (reflex to manual) [[id number]] (Abnormal) Collected:11/19/13 0425 Specimen Information:Blood Updated:11/19/13 0540 [...] K/uL MORPHOLOGY Fecal occult blood (in house) [[id number]] Collected:11/19/13 0146 Specimen Information:Stool / Stool Updated:11/19/13 0217 Fecal Occult Blood NEGATIVE Urine culture [[id number]] Collected:11/17/13 1013 Specimen Information:Urine / Urine, Catheter Updated:11/18/13 1710 Specimen Description CATHETERIZED URINE Specimen Description Result: Testing performed at [facility];[address] [place] [address] CULTURE NO GROWTH CULTURE Result: Testing performed at [facility], [address] [place] [address] 269[address] REPORT STATUS 11/18/2013 FINAL Blood culture, 1 of 2 [[id number]] Collected:11/17/13 1042 Specimen Information:Blood / Blood Updated:11/18/13 1451 Specimen Description BLOOD Specimen Description Result: Testing performed at [facility];[address] [place] [address] SPECIAL REQUESTS Result: REPEAT TEST USING ALTERNATE ASSAYED CONTROL MATERIAL SPECIAL REQUESTS Result: Testing performed at [facility];[address] [place] [address] CULTURE NO GROWTH AT THIS TIME CULTURE Result: Testing performed at [facility], [address] [place] [address] REPORT STATUS PENDING Blood culture, 2 of 2 [[id number]] Collected:11/17/13 1050 Specimen Information:Blood / Blood Updated:11/18/13 1451 Specimen Description BLOOD Specimen Description Result: Testing performed at [facility];[address] [place] [address] SPECIAL REQUESTS PICC LINE SPECIAL REQUESTS Result: Testing performed at [facility];[address] [place] [address] CULTURE NO GROWTH AT THIS TIME CULTURE Result: Testing performed at [facility], [address] [place] [address] REPORT STATUS PENDING Sputum culture [[id number]] Collected:11/17/13 1153 Specimen Information:Sputum / Sputum Updated:11/18/13 1428 Specimen Description SPUTUM Specimen Description Result: Testing performed at [facility];[address] [place] [address] GRAM STAIN GREATER THAN 10 WBCS/LPF GRAM STAIN LESS THAN 10 SEC/LPF GRAM STAIN NO ORGANISMS SEEN GRAM STAIN Result: Testing performed at [facility], [address] [place] [address] CULTURE 1+ NORMAL UPPER RESPIRATORY CURTIS CULTURE Result: Testing performed at [facility], [address] [place] [address] REPORT STATUS PENDING Magnesium [[id number]] Collected:11/18/13 0600 Specimen Information:Blood Updated:11/18/13 1104 MAGNESIUM 2.1 mg/dL Phosphorus [[id number]] Collected:11/18/13 0600 Specimen Information:Blood Updated:11/18/13 1104 PHOSPHORUS 3.8 mg/dL Basic metabolic panel [[id number]] (Abnormal) Collected:11/18/13 0600 Specimen Information:Blood Updated:11/18/13 0716 SODIUM 135 mmol/L POTASSIUM 4.2 mmol/L CHLORIDE 104 mmol/L CO2 24 mmol/L ANION GAP AGAP 11 mmol/L GLUCOSE 110 (H) mg/dL BUN 11 mg/dL CREATININE 0.73 mg/dL BUN/CREAT 15 CALCIUM 9.0 mg/dL EGFR >60 mL/min/1.73m2 TSH [[id number]] Collected:11/18/13 0600 Specimen Information:Blood Updated:11/18/13 0713 TSH 4.28 uIU/mL CBC w/auto diff (reflex to manual) [[id number]] (Abnormal) Collected:11/18/13 0600 Specimen Information:Blood Updated:11/18/13 0647 [...] K/uL BASOPHILS ABS 0.0 K/uL Urine culture [[id number]] Collected:11/16/13 0951 Specimen Information:Urine / Urine, Clean Catch Updated:11/17/13 1618 Specimen Description CLEAN CATCH URINE Specimen Description Result: Testing performed at [address] [address] CULTURE NO GROWTH CULTURE Result: Testing performed at [facility], [address] [place] [address] REPORT STATUS 11/17/2013 FINAL Magnesium [[id number]] (Abnormal) Collected:11/16/13 0407 Specimen Information:Blood Updated:11/17/13 1141 MAGNESIUM 1.6 (L) mg/dL Phosphorus [[id number]] (Abnormal) Collected:11/16/13 0407 Specimen Information:Blood Updated:11/17/13 1141 PHOSPHORUS 1.7 (L) mg/dL Iron panel [[id number]] (Abnormal) Collected:11/17/1357 Specimen Information:Blood Updated:11/17/1318 IRON 31 ug/dL TIBC 155 (L) ug/dL IRON % SAT 20 % Vitamin B12 [[id number]] Collected:11/17/1357 Specimen Information:Blood Updated:11/17/1311 VITAMIN B12 417 pg/mL Folate [[id number]] Collected:11/17/1357 Specimen Information:Blood Updated:11/17/13710 FOLATE 17.7 ng/mL Ferritin [[id number]] Collected:11/17/13556 Specimen Information:Blood Updated:11/17/13 0711 FERRITIN 140 ng/mL Comprehensive metabolic panel [[id number]] (Abnormal) Collected:11/17/13 0557 Specimen Information:Blood Updated:11/17/13 0710 [...] mL/min/1.73m2 CBC w/auto diff (reflex to manual) [[id number]] (Abnormal) Collected:11/17/1357 Specimen Information:Blood Updated:11/17/13 0641 WBC [...] 500 11/15/2013 Ct Head Without Contrast 11/14/2013 RONADL WAYNEFAWTHROP [address] HEAD [...] Case Management by ANGELO Lujan at 11/19/13 7534 Author: ANGELO Lujan Service: (none) Author Type: Hospital Manager Filed: 11/19/13 9786 Date of Service: 11/19/13 2514 Status: Signed Custom Shop Worker: ANGELO Lujan (Hospital Manager) CM contacted Crisis Response Unit to inform [facility] that pt is now medically clear for MH eval uation. A DMHP will see pt in the hospital today for eval. CM spoke with IPR MD - he would like to reevaluate pt tomorrow to determine appropriateness for IPR. ANGELO Lujan Climbing Guide onver hiren Transaction, Provider Unknown - 11/19/2013 12:40 PM PST Progress Notes by Emi Donaldson PT at 11/19/13 1240 Author: Emi Donaldson PT Service: (none) Author Type: Physical Therapist Filed: 11/19/13 1313 Date of Service: 11/19/13 1240 Status: Signed Custom Shop Worker: Emi Donaldson PT (Physical Therapist) 11/19/13 1240 [...] and I have a bladder appointment at [facility] I need to take care [...] 11/19/2013 10:20 AM PST Progress Notes by mEi Donaldson PT at 11/19/13 1020 Author: Emi Donaldson PT Service: (none) Author Type: Physical Therapist Filed: 11/19/13 1052 Date of Service: 11/19/13 1020 Status: Signed Custom Shop Worker: Emi Donaldson PT (Physical Therapist) 11/19/13 1020 PT Last Visit PT Received On 11/19/13 Requires PT Follow Up Unavailable (getting bed bath, f/u later today for PT as schedule allows) onver hiren Transaction, Provider Unknown - 11/19/2013 4:29 AM PST Nurse Progress Note by Kala Peña RN at 11/19/13 6349 Author: Kala Peña RN Service: (none) Author Type: Registered Nurse Filed: 11/19/13 4553 Date of Service: 11/19/13 0429 Status: Signed Custom Shop Worker: Kala Peña, RN (Registered Nurse) Pt slept [...] 11/18/131826 Date of Service: 11/18/131807 Status: Signed Custom Shop Worker: Fran Barnes MD (Physician) [facility] Service: Hospitalist Progress Note Ronald Kowtjanene 68 y.o. [id number] 306/306-2 female [facility] Day: LOS: 4 days Patient Summary: .A 68-year-old female with past medical history of depression with m ultiple suicide attempts in the past, history of COPD, which she attributes to paint inhalat ion, history of anxiety, restless leg syndrome, GERD, diabetes mellitus type 2, diet control led, hypothyroidism, who was admitted to [facility] on the November 14, when the patient was found to be unresponsive by EMS and thought to be secondary to Fle xeril overdose and alcohol intoxication as her alcohol level was more than 300. The patient was found to be hypertensive, hence she was intubated and brought to the [facility] where she was put on dopamine, [...] mood is better after she talked with Vacuum Cleaner Repair Person ,denied any suicidal ideation /thoughts at this moment . Patient c/o generalized weakness and evaluated by PT who recommended SNF and patient wants to know if [facility] [place]. She denied any chest pain, cough,sob ,no [...] Procedure Component Value Units Date/Time Urine culture [[id number]] Collected:11/17/13 1013 Specimen Information:Urine / Urine, Catheter Updated:11/18/13 1710 Specimen Description CATHETERIZED URINE Specimen Description Result: Testing performed at [facility];[address] [facility] [address] CULTURE NO GROWTH CULTURE Result: Testing performed at [facility], [address] [place] [address] REPORT STATUS 11/18/2013 FINAL Blood culture, 1 of 2 [[id number]] Collected:11/17/13 1042 Specimen Information:Blood / Blood Updated:11/18/13 1451 Specimen Description BLOOD Specimen Description Result: Testing performed at [facility] [address] SPECIAL REQUESTS Result: REPEAT TEST USING ALTERNATE ASSAYED CONTROL MATERIAL SPECIAL REQUESTS Result: Testing performed at [facility];[address] [place] [address];[place] [address] CULTURE NO GROWTH AT THIS TIME CULTURE Result: Testing performed at [facility], [address] [place] [address] REPORT STATUS PENDING Blood culture, 2 of 2 [[id number]] Collected:11/17/13 1050 Specimen Information:Blood / Blood Updated:11/18/13 1451 Specimen Description BLOOD Specimen Description Result: Testing performed at [facility] [address] SPECIAL REQUESTS PICC LINE SPECIAL REQUESTS Result: Testing performed at [facility];[address] [facility] [address] CULTURE NO GROWTH AT THIS TIME CULTURE Result: Testing performed at [facility], [address] [place] [address] REPORT STATUS PENDING Sputum culture [[id number]] Collected:11/17/13 1153 Specimen Information:Sputum / Sputum Updated:11/18/13 1428 Specimen Description SPUTUM Specimen Description Result: Testing performed at [facility];[address] [place] [address] GRAM STAIN GREATER THAN 10 WBCS/LPF GRAM STAIN LESS THAN 10 SEC/LPF GRAM STAIN NO ORGANISMS SEEN GRAM STAIN Result: Testing performed at [facility], [address] [place] [address] CULTURE 1+ NORMAL UPPER RESPIRATORY CURTIS CULTURE Result: Testing performed at [facility], [address] [place] [address] REPORT STATUS PENDING Magnesium [[id number]] Collected:11/18/13 0600 Specimen Information:Blood Updated:11/18/13 1104 MAGNESIUM 2.1 mg/dL Phosphorus [[id number]] Collected:11/18/13 0600 Specimen Information:Blood Updated:11/18/13 1104 PHOSPHORUS 3.8 mg/dL Basic metabolic panel [[id number]] (Abnormal) Collected:11/18/13 0600 Specimen Information:Blood Updated:11/18/13 0716 SODIUM 135 mmol/L POTASSIUM 4.2 mmol/L CHLORIDE 104 mmol/L CO2 24 mmol/L ANION GAP AGAP 11 mmol/L GLUCOSE 110 (H) mg/dL BUN 11 mg/dL CREATININE 0.73 mg/dL BUN/CREAT 15 CALCIUM 9.0 mg/dL EGFR >60 mL/min/1.73m2 TSH [[id number]] Collected:11/18/13 06 Specimen Information:Blood Updated:11/18/13 0713 TSH 4.28 uIU/mL CBC w/auto diff (reflex to manual) [[id number]] (Abnormal) Collected:11/18/13 06 Specimen Information:Blood Updated:11/18/13 0647 [...] K/uL BASOPHILS ABS 0.0 K/uL Urine culture [[id number]] Collected:11/16/13 0951 Specimen Information:Urine / Urine, Clean Catch Updated:11/17/13 1618 Specimen Description CLEAN CATCH URINE Specimen Description Result: Testing performed at [facility];[address] [place] [address] CULTURE NO GROWTH CULTURE Result: Testing performed at [facility], [address] [place] [address] REPORT STATUS 11/17/2013 FINAL Magnesium [[id number]] (Abnormal) Collected:11/16/13 0407 Specimen Information:Blood Updated:11/17/13 1141 MAGNESIUM 1.6 (L) mg/dL Phosphorus [[id number]] (Abnormal) Collected:11/16/13 0407 Specimen Information:Blood Updated:11/17/13 1141 PHOSPHORUS 1.7 (L) mg/dL Iron panel [[id number]] (Abnormal) Collected:11/17/13556 Specimen Information:Blood Updated:11/17/1318 IRON 31 ug/dL TIBC 155 (L) ug/dL IRON % SAT 20 % Vitamin B12 [[id number]] Collected:11/17/13556 Specimen Information:Blood Updated:11/17/1311 VITAMIN B12 417 pg/mL Folate [[id number]] Collected:11/17/13556 Specimen Information:Blood Updated:11/17/13710 FOLATE 17.7 ng/mL Ferritin [[id number]] Collected:11/17/13556 Specimen Information:Blood Updated:11/17/1311 FERRITIN 140 ng/mL Comprehensive metabolic panel [[id number]] (Abnormal) Collected:11/17/13556 Specimen Information:Blood Updated:11/17/13709 SODIUM 134 [...] mL/min/1.73m2 CBC w/auto diff (reflex to manual) [[id number]] (Abnormal) Collected:11/17/13556 Specimen Information:Blood Updated:11/17/13640 WBC 7.8 [...] K/uL BASOPHILS ABS 0.0 K/uL MORPHOLOGY Potassium [[id number]] Collected:11/16/13 1112 Specimen Information:Blood Updated:11/16/13 1133 POTASSIUM 3.6 mmol/L Sputum culture [[id number]] Collected:11/14/13 2055 Specimen Information:Sputum / Tracheal Aspirate Updated:11/16/13 1018 Specimen Description TRACHEAL ASPIRATE Specimen Description Result: Testing performed at [facility];[address] [place] [address];[place] [address] GRAM STAIN GREATER THAN 10 WBCS/LPF GRAM STAIN LESS THAN 10 SEC/LPF GRAM STAIN 2+ GRAM POSITIVE COCCI GRAM STAIN 1+ GRAM POSITIVE RODS GRAM STAIN Result: Testing performed at [address] [address] CULTURE 2+ NORMAL UPPER RESPIRATORY CURTIS CULTURE Result: Testing performed at [facility], [address] [place] [address] REPORT STATUS 11/16/2013 FINAL Acetaminophen level [[id number]] (Abnormal) Collected:11/16/13 0755 Specimen Information:Blood Updated:11/16/13 0828 ACETAMINOPHEN 3.7 (L) ug/mL CBC w/auto diff (reflex to manual) [[id number]] (Abnormal) Collected:11/16/13 0407 Specimen Information:Blood Updated:11/16/13 0503 [...] BASOPHILS ABS 0.0 K/uL Basic metabolic panel [[id number]] (Abnormal) Collected:11/16/13406 Specimen Information:Blood Updated:11/16/13439 SODIUM 143 mmol/L POTASSIUM 3.1 (L) mmol/L CHLORIDE 109 mmol/L CO2 27 mmol/L ANION GAP AGAP 10 mmol/L GLUCOSE 78 mg/dL BUN 7 (L) mg/dL CREATININE 0.77 mg/dL BUN/CREAT 9 CALCIUM 7.8 (L) mg/dL EGFR >60 mL/min/1.73m2 Acetaminophen level [[id number]] (Abnormal) Collected:11/16/13406 Specimen Information:Blood Updated:11/16/13439 ACETAMINOPHEN 4.5 (L) ug/mL Acetaminophen level [[id number]] (Abnormal) Collected:11/16/136 Specimen Information:Blood Updated:11/16/138 ACETAMINOPHEN 5.2 [...] (none) Author Type: Registered Nurse Filed: 11/18/13 1334 Date of Service: 11/18/131805 Status: Signed Custom Shop Worker: Donita Hunter RN (Registered Nurse) babysitter at bedside, pt seeming uplifted by conversation with data entry associate. PCC in and asked t hat this RN not remove cords, call-light cord and other items nearby pt as reception had con tacted her regarding this RN's discussion that per policy and patients statements indicating that she intended to cause her self harm this RN felt it would be best to move items that s he could use to harm herself away from her after she finished speaking with the data entry associate. Th is RN has increased rounding, line of site at RN station and reception continues to be in pl sukhi. Pt overall mood continue to be melancholy and tearful, but has not threatened to do chapito f harm since her discussion with the data entry associate. Pt encouraged to express her emotions to staf f. Pt complains of diffuse pain, and desire to go to [place]. Pt medicated for pain per DEC. Wi ll continue to monitor closely.DONITA HUNTER RN onver hiren Transaction, Provider Unknown - 11/18/2013 2:59 PM PST Progress Notes by Franky Mcclain at 11/18/13 2499 Author: Franky Mcclain Service: (none) Author Type: Oil Rag Washer Filed: 11/18/13 3123 Date of Service: 11/18/13 6489 Status: Signed Custom Shop Worker: Franky Mcclain (Oil Rag Washer) Received pt's request via RN for "someone [...] but now belongs to the "12 step protestant" and the [facility] prayer to cope. She states that [...] Date of Service: 11/18/13 1208 Status: Signed Custom Shop Worker: Donita Hunter RN (Registered Nurse) Oil Rag Washer called to be with patient,, reception at bedside. Pt indicating desire to harm [...] 0615 Date of Service: 11/18/13612 Status: Signed Custom Shop Worker: Kala Peña RN (Registered Nurse) Pt slept [...] 11/17/135 Date of Service: 11/17/131823 Status: Signed Custom Shop Worker: Dick De Santiago RN (Registered Nurse) Pt [...] Date of Service: 11/17/13 1341 Status: Signed Custom Shop Worker: Sharif Romero (Oil Rag Washer) I visited with Pt to assess her [...] Date of Service: 11/17/13 113 Status: Signed Custom Shop Worker: Emi Donaldson PT (Physical Therapist) 11/17/13 1133 [...] Notes by Emi Donaldson PT at 11/17/13 6133 Author: Emi Donaldson PT Service: (none) Author Type: Physical Therapist Filed: 11/17/13 6722 Date of Service: 11/17/13 1133 Status: Signed Custom Shop Worker: Emi Donaldson PT (Physical Therapist) 11/17/13 1133 [...] Recommendations SNF Equipment Recommended (pending improvement, lift physics tutor c/s) Prior Function Level of Stuart Modified independent with functional mobility;Modified independent wi [...] Yes Type of Devices 1:1 sitter maintained Farn Porter MD - 11/17/2013 10:02 AM PSTFormatting of this note might be different from the or iginal. Progress Notes by Fran Barnes MD at 11/17/13 1002 Author: Fran Barnes MD Service: Hospitalist Author Type: Physician Filed: 11/17/13 1746 Date of Service: 11/17/13 1002 Status: Signed Custom Shop Worker: Fran Barnes MD (Physician) Related Notes: Original Note by Fran Barnes MD (Physician) filed at 11/17/13 1016 [facility] Service: Hospitalist Progress Note Ronald Kowthrleighann 68 y.o. [id number] 306/306-2 female [facility] Day: LOS: 3 days Patient Summary: .A 68-year-old female with past medical history of depression with m ultiple suicide attempts in the past, history of COPD, which she attributes to paint inhalat ion, history of anxiety, restless leg syndrome, GERD, diabetes mellitus type 2, diet control led, hypothyroidism, who was admitted to [facility] on the November 14 014, when the patient was found to be unresponsive by EMS and thought to be secondary to Fle xeril overdose and alcohol intoxication as her alcohol level was more than 300. The patient was found to be hypertensive, hence she was intubated and brought to the [facility] where she was put on dopamine, [...] commands . I received her records from [facility]. The patient's 2 sons live in [place], and she does not know the phone [...] Procedure Component Value Units Date/Time Iron panel [[id number]] (Abnormal) Collected:11/17/13556 Specimen Information:Blood Updated:11/17/13717 IRON 31 ug/dL TIBC 155 (L) ug/dL IRON % SAT 20 % Vitamin B12 [[id number]] Collected:11/17/13556 Specimen Information:Blood Updated:11/17/13710 VITAMIN B12 417 pg/mL Folate [[id number]] Collected:11/17/13556 Specimen Information:Blood Updated:11/17/13710 FOLATE 17.7 ng/mL Ferritin [[id number]] Collected:11/17/13556 Specimen Information:Blood Updated:11/17/13710 FERRITIN 140 ng/mL Comprehensive metabolic panel [[id number]] (Abnormal) Collected:11/17/13556 Specimen Information:Blood Updated:11/17/13709 SODIUM 134 [...] mL/min/1.73m2 CBC w/auto diff (reflex to manual) [[id number]] (Abnormal) Collected:11/17/13556 Specimen Information:Blood Updated:11/17/13 06 WBC [...] BASOPHILS ABS 0.0 K/uL MORPHOLOGY Urine culture [[id number]] Collected:11/16/13 0951 Specimen Information:Urine / Urine, Clean Catch Updated:11/16/13 1144 Potassium [[id number]] Collected:11/16/13 1112 Specimen Information:Blood Updated:11/16/13 1133 POTASSIUM 3.6 mmol/L Sputum culture [[id number]] Collected:11/14/13 2055 Specimen Information:Sputum / Tracheal Aspirate Updated:11/16/13 1018 Specimen Description TRACHEAL ASPIRATE Specimen Description Result: Testing performed at [facility];[address] [place] [address];[place] [address] GRAM STAIN GREATER THAN 10 WBCS/LPF GRAM STAIN LESS THAN 10 SEC/LPF GRAM STAIN 2+ GRAM POSITIVE COCCI GRAM STAIN 1+ GRAM POSITIVE RODS GRAM STAIN Result: Testing performed at [address] [address] CULTURE 2+ NORMAL UPPER RESPIRATORY CURTIS CULTURE Result: Testing performed at [facility], [address] [place] [address] REPORT STATUS 11/16/2013 FINAL Acetaminophen level [[id number]] (Abnormal) Collected:11/16/13 0755 Specimen Information:Blood Updated:11/16/13 0828 ACETAMINOPHEN 3.7 (L) ug/mL Magnesium [[id number]] Collected:11/16/13 0407 Specimen Information:Blood Updated:11/16/13 0800 Phosphorus [[id number]] Collected:11/16/13 0407 Specimen Information:Blood Updated:11/16/13 0800 CBC w/auto diff (reflex to manual) [[id number]] (Abnormal) Collected:11/16/13 0407 Specimen Information:Blood Updated:11/16/13 0503 [...] BASOPHILS ABS 0.0 K/uL Basic metabolic panel [[id number]] (Abnormal) Collected:11/16/13 0407 Specimen Information:Blood Updated:11/16/13 0440 SODIUM 143 mmol/L POTASSIUM 3.1 (L) mmol/L CHLORIDE 109 mmol/L CO2 27 mmol/L ANION GAP AGAP 10 mmol/L GLUCOSE 78 mg/dL BUN 7 (L) mg/dL CREATININE 0.77 mg/dL BUN/CREAT 9 CALCIUM 7.8 (L) mg/dL EGFR >60 mL/min/1.73m2 Acetaminophen level [[id number]] (Abnormal) Collected:11/16/13 0407 Specimen Information:Blood Updated:11/16/13 0440 ACETAMINOPHEN 4.5 (L) ug/mL Acetaminophen level [[id number]] (Abnormal) Collected:11/16/13 0036 Specimen Information:Blood Updated:11/16/13 0058 ACETAMINOPHEN 5.2 (L) ug/mL Troponin I [[id number]] (Abnormal) Collected:11/15/13 1602 Specimen Information:Blood Updated:11/15/13 1651 TROPONIN I 0.208 (H) ng/mL CK MB [[id number]] Collected:11/15/13 1602 MMB 3.4 ng/mL Updated:11/15/13 1651 CK-MB Index 2.4 CPK [[id number]] Collected:11/15/13 1602 Specimen Information:Blood Updated:11/15/13 1651 CPK 140 U/L Acetaminophen level [[id number]] Collected:11/15/13 1602 Specimen Information:Blood Updated:11/15/13 1651 ACETAMINOPHEN 10.0 ug/mL POCT glucose [[id number]] (Abnormal) Collected:11/14/13 1920 GLUCOSE,POC SCREEN 154 (H) mg/dL Updated:11/15/13 1317 Acetaminophen level [[id number]] (Abnormal) Collected:11/15/13 1132 Specimen Information:Blood Updated:11/15/13 1207 ACETAMINOPHEN 5.5 (L) ug/mL Basic metabolic panel [[id number]] (Abnormal) Collected:11/15/13 1132 Specimen Information:Blood Updated:11/15/13 1207 SODIUM 144 (H) mmol/L POTASSIUM 3.9 mmol/L CHLORIDE 114 (H) mmol/L CO2 20 (L) mmol/L ANION GAP AGAP 14 mmol/L GLUCOSE 153 (H) mg/dL BUN 8 mg/dL CREATININE 0.92 mg/dL BUN/CREAT 9 CALCIUM 7.4 (L) mg/dL EGFR >60 mL/min/1.73m2 CPK [[id number]] Collected:11/15/13850 Specimen Information:Blood Updated:11/15/1325 CPK 75 U/L Troponin I [[id number]] (Abnormal) Collected:11/15/13850 Specimen Information:Blood Updated:11/15/1325 TROPONIN I 0.325 (H) ng/mL CK MB [[id number]] Collected:11/15/13850 MMB 3.4 ng/mL Updated:11/15/13 0925 CK-MB Index 4.5 Acetaminophen level [[id number]] (Abnormal) Collected:11/15/13850 Specimen Information:Blood Updated:11/15/13 0925 ACETAMINOPHEN 6.3 (L) ug/mL POCT glucose [[id number]] Collected:11/15/13 0033 GLUCOSE,POC SCREEN 86 mg/dL Updated:11/15/13 0759 Osmolality [[id number]] (Abnormal) Collected:11/15/13 0408 Specimen Information:Blood Updated:11/15/13 0701 OSMOLALITY,SERUM 316 (H) mOsm/kg Lactic acid, plasma [[id number]] (Abnormal) Collected:11/15/13 0532 Specimen Information:Blood Updated:11/15/13 0617 LACTIC ACID 2.5 (H) mmol/L CBC w/auto diff (reflex to manual) [[id number]] (Abnormal) Collected:11/15/138 Specimen Information:Blood Updated:11/15/13 0530 WBC [...] BASOPHILS ABS 0.0 K/uL MORPHOLOGY Troponin I [[id number]] (Abnormal) Collected:11/15/13407 Specimen Information:Blood Updated:11/15/13522 TROPONIN I 0.647 (HH) ng/mL CK MB [[id number]] Collected:11/15/13407 MMB 3.3 ng/mL Updated:11/15/13522 CK-MB Index 5.9 CPK [[id number]] Collected:11/15/13407 Specimen Information:Blood Updated:11/15/13521 CPK 56 U/L Comprehensive metabolic panel [[id number]] (Abnormal) Collected:11/15/13407 Specimen Information:Blood Updated:11/15/13521 SODIUM 148 [...] 61 U/L EGFR >60 mL/min/1.73m2 Acetaminophen level [[id number]] (Abnormal) Collected:11/15/13407 Specimen Information:Blood Updated:11/15/13521 ACETAMINOPHEN 9.9 (L) ug/mL POC arterial CG4+ [[id number]] (Abnormal) Collected:11/14/13 2347 pH, Art 7.141 (LL) Updated:11/14/13 2351 POC PCO2 40 mmHg POC p02 283 (H) mmHg POC LACTATE 3.7 (H) mmol/L POC HCO3 14 (L) mmol/L POC TCO2 15 (L) mEq/L POC BASE DEFICIT 15 (H) mmol/L POC S02 100 (H) % POC FIO2 70 % POC COMMENTS Tidal Volume = 500 Lactic acid, plasma [[id number]] (Abnormal) Collected:11/14/132116 Specimen Information:Blood Updated:11/14/132155 LACTIC ACID 3.4 (H) mmol/L Basic metabolic panel [[id number]] (Abnormal) Collected:11/14/132112 Specimen Information:Blood Updated:11/14/132149 SODIUM 143 mmol/L POTASSIUM 3.0 (L) mmol/L CHLORIDE 114 (H) mmol/L CO2 16 (L) mmol/L ANION GAP AGAP 16 mmol/L GLUCOSE 187 (H) mg/dL BUN 10 mg/dL CREATININE 0.79 mg/dL BUN/CREAT 13 CALCIUM 6.5 (L) mg/dL EGFR >60 mL/min/1.73m2 Phosphorus [[id number]] Collected:11/14/132112 Specimen Information:Blood Updated:11/14/132149 PHOSPHORUS 2.4 mg/dL Magnesium [[id number]] Collected:11/14/132112 Specimen Information:Blood Updated:11/14/132149 MAGNESIUM 1.7 mg/dL Hepatic function panel [[id number]] (Abnormal) Collected:11/14/132112 TOTAL PROTEIN 5.6 (L) g/dL Updated:11/14/132149 Albumin 3.1 (L) g/dL TBIL 0.2 mg/dL BILI, DIRECT <0.1 mg/dL ALK PHOS 76 U/L AST 75 (H) U/L ALT 67 (H) U/L Acetaminophen level [[id number]] (Abnormal) Collected:11/14/132112 Specimen Information:Blood Updated:11/14/132149 ACETAMINOPHEN 44.4 (H) ug/mL Ionized calcium,to [facility] [[id number]] (Abnormal) Collected:11/14/132114 Specimen Information:Blood Updated:11/14/132145 CA++ 0.99 (L) mmol/L pH 7.179 (L) aPTT [[id number]] Collected:11/14/132112 Specimen Information:Blood Updated:11/14/132144 APTT 26 seconds Protime-INR [[id number]] Collected:11/14/132112 Specimen Information:Blood Updated:11/14/132144 INR 1.0 MRSA by PCR [[id number]] Collected:11/14/131929 Specimen Information:Nasopharyngeal / Nasopharyngeal Culture Updated:11/14/132130 SOURCE NARES(NOSE) RESULT NEGATIVE CBC w/auto diff (reflex to manual) [[id number]] (Abnormal) Collected:11/14/132112 Specimen Information:Blood Updated:11/14/132130 WBC 12.2 [...] ABS 0.0 K/uL Rapid drug screen, urine [[id number]] (Abnormal) Collected:11/14/131929 Specimen Information:Urine / Urine, Catheter Updated:11/14/132036 THC NEGATIVE PCP NEGATIVE COCAINE NEGATIVE METHAMPHETAMINES NEGATIVE OPIATES PRESUMPTIVE POSITIVE (A) AMPHETAMINE NEGATIVE BENZODIAZEPINE NEGATIVE TRICYCLIC ANTIDEPRESS PRESUMPTIVE POSITIVE (A) METHADONE NEGATIVE BARBITUATES NEGATIVE Urine microscopic only [[id number]] (Abnormal) Collected:11/14/131929 WBC 1-5 /hpf Updated:11/14/132035 RBC 0-2 /hpf EPITHELIAL NONE SEEN /lpf BACTERIA TRACE (A) Urinalysis (reflex to micro) [[id number]] (Abnormal) Collected:11/14/131929 Specimen Information:Urine / Urine, Catheter Updated:11/14/132035 COLOR UA OTHER CLARITY CLEAR Specific [place], UA 1.004 LEUKOCYTE ESTERASE TRACE (A) NITRITE [...] to patient,doing exam and revising records from [facility]. FRAN BARNES MD 11/17/2013 onversion Transactio n, Provider Unknown - 11/17/2013 4:27 AM PST Nurse Progress Note by Jazzy Patel RN at 11/17/137 Author: Jazzy Patel RN Service: (none) Author Type: Registered Nurse Filed: 11/17/13 0429 Date of Service: 11/17/13426 Status: Signed Custom Shop Worker: Jazzy Patel RN (Registered Nurse) Pt currently sleeping. 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 Unable to score CIWA a s patient [...] Notes by Fran Barnes MD at 11/16/13 0491 Author: Fran Barnes MD Service: Hospitalist Author Type: Physician Filed: 11/17/13 1746 Date of Service: 11/16/13 1040 Status: Signed Custom Shop Worker: Fran Barnes MD (Physician) Related Notes: Original Note by Fran Barnes MD (Physician) filed at 11/16/13 3810 [facility] Service: Hospitalist Progress Note Ronald Castañeda 68 y.o. [id number] 323/323-1 female [facility]QUEL Suarez [place] [facility] Day: LOS: 2 days Patient Summary: A 68-year-old female with past medical history of depression and his tory of suicidal attempts, COPD per patient but there is no documentation of it, who took an overdose of Flexeril and EMS found her in the bathtub with clothes on, and the patient was taken to [facility] ER where she was found to be unresponsive and hypertensive, an d was intubated and sent to [facility] for further workup and treatment. The [...] as tricyclic positive. She was put on CIND protocol for alcohol withdrawal. Today when I [...] atient told that she lives alone in [place]. [facility]. She [...] Procedure Component Value Units Date/Time Urine culture [[id number]] Collected:11/16/13 0951 Specimen Information:Urine / Urine, Clean Catch Updated:11/16/13 1144 Potassium [[id number]] Collected:11/16/13 1112 Specimen Information:Blood Updated:11/16/13 1133 POTASSIUM 3.6 mmol/L Sputum culture [[id number]] Collected:11/14/13 2055 Specimen Information:Sputum / Tracheal Aspirate Updated:11/16/13 1018 Specimen Description TRACHEAL ASPIRATE Specimen Description Result: Testing performed at [facility];[address] [place] [address];[place] [address] GRAM STAIN GREATER THAN 10 WBCS/LPF GRAM STAIN LESS THAN 10 SEC/LPF GRAM STAIN 2+ GRAM POSITIVE COCCI GRAM STAIN 1+ GRAM POSITIVE RODS GRAM STAIN Result: Testing performed at [facility], [address] [place] [address] CULTURE 2+ NORMAL UPPER RESPIRATORY CURTIS CULTURE Result: Testing performed at [facility], [address] [place] [address] REPORT STATUS 11/16/2013 FINAL Acetaminophen level [[id number]] (Abnormal) Collected:11/16/13 0755 Specimen Information:Blood Updated:11/16/13 0828 ACETAMINOPHEN 3.7 (L) ug/mL Magnesium [[id number]] Collected:11/16/13406 Specimen Information:Blood Updated:11/16/13 0800 Phosphorus [[id number]] Collected:11/16/13406 Specimen Information:Blood Updated:11/16/13 0800 CBC w/auto diff (reflex to manual) [[id number]] (Abnormal) Collected:11/16/13406 Specimen Information:Blood Updated:11/16/13 0503 WBC [...] BASOPHILS ABS 0.0 K/uL Basic metabolic panel [[id number]] (Abnormal) Collected:11/16/13406 Specimen Information:Blood Updated:11/16/13 044 SODIUM 143 mmol/L POTASSIUM 3.1 (L) mmol/L CHLORIDE 109 mmol/L CO2 27 mmol/L ANION GAP AGAP 10 mmol/L GLUCOSE 78 mg/dL BUN 7 (L) mg/dL CREATININE 0.77 mg/dL BUN/CREAT 9 CALCIUM 7.8 (L) mg/dL EGFR >60 mL/min/1.73m2 Acetaminophen level [[id number]] (Abnormal) Collected:11/16/13406 Specimen Information:Blood Updated:11/16/13 0440 ACETAMINOPHEN 4.5 (L) ug/mL Acetaminophen level [[id number]] (Abnormal) Collected:11/16/13 0036 Specimen Information:Blood Updated:11/16/13 0058 ACETAMINOPHEN 5.2 (L) ug/mL Troponin I [[id number]] (Abnormal) Collected:11/15/13 1602 Specimen Information:Blood Updated:11/15/13 1651 TROPONIN I 0.208 (H) ng/mL CK MB [[id number]] Collected:11/15/13 1602 MMB 3.4 ng/mL Updated:11/15/13 165 CK-MB Index 2.4 CPK [[id number]] Collected:11/15/13 160 Specimen Information:Blood Updated:11/15/13 1651 CPK 140 U/L Acetaminophen level [[id number]] Collected:11/15/13 160 Specimen Information:Blood Updated:11/15/13 1651 ACETAMINOPHEN 10.0 ug/mL POCT glucose [[id number]] (Abnormal) Collected:11/14/13 1920 GLUCOSE,POC SCREEN 154 (H) mg/dL Updated:11/15/13 1317 Acetaminophen level [[id number]] (Abnormal) Collected:11/15/13 1132 Specimen Information:Blood Updated:11/15/13 1207 ACETAMINOPHEN 5.5 (L) ug/mL Basic metabolic panel [[id number]] (Abnormal) Collected:11/15/13 1132 Specimen Information:Blood Updated:11/15/13 1207 SODIUM 144 (H) mmol/L POTASSIUM 3.9 mmol/L CHLORIDE 114 (H) mmol/L CO2 20 (L) mmol/L ANION GAP AGAP 14 mmol/L GLUCOSE 153 (H) mg/dL BUN 8 mg/dL CREATININE 0.92 mg/dL BUN/CREAT 9 CALCIUM 7.4 (L) mg/dL EGFR >60 mL/min/1.73m2 CPK [[id number]] Collected:11/15/1351 Specimen Information:Blood Updated:11/15/13 0925 CPK 75 U/L Troponin I [[id number]] (Abnormal) Collected:11/15/13850 Specimen Information:Blood Updated:11/15/13 0925 TROPONIN I 0.325 (H) ng/mL CK MB [[id number]] Collected:11/15/13850 MMB 3.4 ng/mL Updated:11/15/13 0925 CK-MB Index 4.5 Acetaminophen level [[id number]] (Abnormal) Collected:11/15/13 0851 Specimen Information:Blood Updated:11/15/13 0925 ACETAMINOPHEN 6.3 (L) ug/mL POCT glucose [[id number]] Collected:11/15/13 0033 GLUCOSE,POC SCREEN 86 mg/dL Updated:11/15/13 0759 Osmolality [[id number]] (Abnormal) Collected:11/15/13407 Specimen Information:Blood Updated:11/15/13 0701 OSMOLALITY,SERUM 316 (H) mOsm/kg Lactic acid, plasma [[id number]] (Abnormal) Collected:11/15/13 0532 Specimen Information:Blood Updated:11/15/13 0617 LACTIC ACID 2.5 (H) mmol/L CBC w/auto diff (reflex to manual) [[id number]] (Abnormal) Collected:11/15/13407 Specimen Information:Blood Updated:11/15/13529 WBC 5.5 [...] BASOPHILS ABS 0.0 K/uL MORPHOLOGY Troponin I [[id number]] (Abnormal) Collected:11/15/13407 Specimen Information:Blood Updated:11/15/13522 TROPONIN I 0.647 (HH) ng/mL CK MB [[id number]] Collected:11/15/13407 MMB 3.3 ng/mL Updated:11/15/13522 CK-MB Index 5.9 CPK [[id number]] Collected:11/15/13407 Specimen Information:Blood Updated:11/15/13521 CPK 56 U/L Comprehensive metabolic panel [[id number]] (Abnormal) Collected:11/15/13407 Specimen Information:Blood Updated:11/15/13521 SODIUM 148 [...] 61 U/L EGFR >60 mL/min/1.73m2 Acetaminophen level [[id number]] (Abnormal) Collected:11/15/13 0408 Specimen Information:Blood Updated:11/15/13 0522 ACETAMINOPHEN 9.9 (L) ug/mL POC arterial CG4+ [[id number]] (Abnormal) Collected:11/14/132346 pH, Art 7.141 (LL) Updated:11/14/13 2351 POC PCO2 40 mmHg POC p02 283 (H) mmHg POC LACTATE 3.7 (H) mmol/L POC HCO3 14 (L) mmol/L POC TCO2 15 (L) mEq/L POC BASE DEFICIT 15 (H) mmol/L POC S02 100 (H) % POC FIO2 70 % POC COMMENTS Tidal Volume = 500 Lactic acid, plasma [[id number]] (Abnormal) Collected:11/14/132116 Specimen Information:Blood Updated:11/14/132155 LACTIC ACID 3.4 (H) mmol/L Basic metabolic panel [[id number]] (Abnormal) Collected:11/14/132112 Specimen Information:Blood Updated:11/14/132149 SODIUM 143 mmol/L POTASSIUM 3.0 (L) mmol/L CHLORIDE 114 (H) mmol/L CO2 16 (L) mmol/L ANION GAP AGAP 16 mmol/L GLUCOSE 187 (H) mg/dL BUN 10 mg/dL CREATININE 0.79 mg/dL BUN/CREAT 13 CALCIUM 6.5 (L) mg/dL EGFR >60 mL/min/1.73m2 Phosphorus [[id number]] Collected:11/14/132112 Specimen Information:Blood Updated:11/14/132149 PHOSPHORUS 2.4 mg/dL Magnesium [[id number]] Collected:11/14/132112 Specimen Information:Blood Updated:11/14/132149 MAGNESIUM 1.7 mg/dL Hepatic function panel [[id number]] (Abnormal) Collected:11/14/132112 TOTAL PROTEIN 5.6 (L) g/dL Updated:11/14/132149 Albumin 3.1 (L) g/dL TBIL 0.2 mg/dL BILI, DIRECT <0.1 mg/dL ALK PHOS 76 U/L AST 75 (H) U/L ALT 67 (H) U/L Acetaminophen level [[id number]] (Abnormal) Collected:11/14/132112 Specimen Information:Blood Updated:11/14/132149 ACETAMINOPHEN 44.4 (H) ug/mL Ionized calcium,to [facility] [[id number]] (Abnormal) Collected:11/14/132114 Specimen Information:Blood Updated:11/14/132145 CA++ 0.99 (L) mmol/L pH 7.179 (L) aPTT [[id number]] Collected:11/14/132112 Specimen Information:Blood Updated:11/14/132144 APTT 26 seconds Protime-INR [[id number]] Collected:11/14/132112 Specimen Information:Blood Updated:11/14/132144 INR 1.0 MRSA by PCR [[id number]] Collected:11/14/131929 Specimen Information:Nasopharyngeal / Nasopharyngeal Culture Updated:11/14/132130 SOURCE NARES(NOSE) RESULT NEGATIVE CBC w/auto diff (reflex to manual) [[id number]] (Abnormal) Collected:11/14/132112 Specimen Information:Blood Updated:11/14/132130 WBC 12.2 [...] ABS 0.0 K/uL Rapid drug screen, urine [[id number]] (Abnormal) Collected:11/14/131929 Specimen Information:Urine / Urine, Catheter Updated:11/14/132036 THC NEGATIVE PCP NEGATIVE COCAINE NEGATIVE METHAMPHETAMINES NEGATIVE OPIATES PRESUMPTIVE POSITIVE (A) AMPHETAMINE NEGATIVE BENZODIAZEPINE NEGATIVE TRICYCLIC ANTIDEPRESS PRESUMPTIVE POSITIVE (A) METHADONE NEGATIVE BARBITUATES NEGATIVE Urine microscopic only [[id number]] (Abnormal) Collected:11/14/131929 WBC 1-5 /hpf Updated:11/14/132035 RBC 0-2 /hpf EPITHELIAL NONE SEEN /lpf BACTERIA TRACE (A) Urinalysis (reflex to micro) [[id number]] (Abnormal) Collected:11/14/131929 Specimen Information:Urine / Urine, Catheter Updated:11/14/132035 COLOR UA OTHER CLARITY CLEAR Specific [place], UA 1.004 LEUKOCYTE ESTERASE TRACE (A) NITRITE [...] 1423 Date of Service: 11/16/131421 Status: Signed Custom Shop Worker: Kassidy Perez RN (Registered Nurse) Pt beginning [...] Date of Service: 11/16/13 1140 Status: Signed Custom Shop Worker: Jana Taylor Pt given to Kassidy MORAN on 3OP. Pt transferred via wheel chair. onver hiren Transaction, Provider Unknown - 11/16/2013 1:17 AM PST Nurse Progress Note by Sheryl Tomas RN at 11/16/13116 Author: Sheryl Tomas RN Service: (none) Author Type: Registered Nurse Filed: 11/16/13116 Date of Service: 11/16/13116 Status: Signed Custom Shop Worker: Sheryl Tomas RN (Registered Nurse) Stopped Acetylcysteine drip per order. Sheryl Tomas RN iotr hesham Jana Osbornanne - 11/15/2013 4:28 PM PST Progress Notes by Jana Norris DO at 11/15/131627 Author: Jana Norris DO Service: (none) Author Type: Knife Setter Grinder Machine Filed: 11/15/131628 Date of Service: 11/15/131627 Status: Signed Custom Shop Worker: Jana Norris DO (Knife Setter Grinder Machine) Pt was extubated this am and has [...] 11/15/131408 Date of Service: 11/15/131407 Status: Signed Custom Shop Worker: Kourtney Aldana RN (Registered Nurse) Discussed psych consult with Dr. Norris. Received verbal order for psych consult. Notifi wilbert Flores RN, she will arrange for psych consult. When pt is stable for discharge, will need to call [facility] : [phone] to evalulate before disch arging pt. KOURTNEY ALDANA 11/15/2013 2:09 PM onver hiren Transaction, Provider Unknown - 11/15/2013 9:32 AM PST Progress Notes by Nick Jeffries RN at 11/15/13931 Author: Nick Jeffries RN Service: Wound/Ostomy Care Author Type: Registered Nurse Filed: 11/15/1334 Date of Service: 11/15/13931 Status: Signed Custom Shop Worker: Nick Jeffries RN (Registered Nurse) Pt seen [...] 0557 Date of Service: 11/15/1357 Status: Signed Custom Shop Worker: Mat Perez RPH (Pharmacist) Clinical Pharmacy Note: Renal Monitoring Ronald Koonel 68 y.o. female Ht Readings from Last 1 Encounters: No data found for Ht Wt Readings from Last 1 Encounters: 11/15/13 69.1 kg (152 lb 5.4 oz) CREATININE Date Value Range Status 11/15/2013 0.69 0.50 - 1.00 mg/dL Final Testing performed at [facility];[address] [place] [address];[place] [address] Creatinine clearance cannot be calculated - Unknown [...] 11/15/131951 Date of Service: 11/14/131856 Status: Signed Custom Shop Worker: Roseline Sanon RN (Registered Nurse) Pt arrived [facility] from [facility]. No report called from [place] a nd minimal report received Via [facility]. Pt transferred to bed, ventilator applied to exist ing ETT via RT. Obvious smell of ETOH emitting from PT. No cough, gag or corneals noted. assistant shift supervisor RN Gayle in room to [...] DEWEY | | | | | | [id number] | | | | | | | [...] | EXTERNAL LAB | | performed at [facility];[address] [place] [address];[place] [address] 027 NAP1 BI | | | 027 NAP1 BI PRESUMPTIVE NEGATIVE | | | Detection of 027 NAP1 BI strains of C. difficile is presumptive and | | | for epidemiological purposes and not intended to guide or monitor | | | treatment for C. difficile infections. Testing performed at [facility];[address] | | [address];[place] [address] | | + + + + +---------+ [...] | | | | | [place] [address] | | | | + + + + + + | RED CELL | 3.85Comment: Testing | 3.70 - 5.10 | EXTERNAL | | | COUNT | performed at [facility], [address] | M/uL | LAB | | | | [address], | | | | | | [place] [address] | | | | + + + + + + | Hgb | 10.7 (L)Comment: Testing | 11.3 - 15.5 | EXTERNAL | | | | performed at [facility], [address] | g/dL | LAB | | | | [address], | | | | | | [place] [address] | | | | + + + + + + | Hematocrit, | 32.8 (L)Comment: Testing | 34.0 - 46.0 % | EXTERNAL | | | POC | performed at [facility], [address] | | LAB | | | | [address], | | | | | | [place] [address] | | | | + + + + + + | MCV | 85.2Comment: Testing | 80.0 - 100.0 fl | EXTERNAL | | | | performed at [facility], [address] | | LAB | | | | [address], | | | | | | [place] [address] | | | | + + + + + + | MCH | 27.8Comment: Testing | 27.0 - 34.0 pg | EXTERNAL | | | | performed at [facility], [address] | | LAB | | | | [address], | | | | | | [place] [address] | | | | + + + + + + | MCHC | 32.6Comment: Testing | 32.0 - 35.5 | EXTERNAL | | | | performed at [facility], [address] | g/dL | LAB | | | | [address], | | | | | | [place] [address] | | | | + + + + + + | RDW-CV | 38.1Comment: Testing | 37 - 53 fl | EXTERNAL | | | | performed at [facility], [address] | | LAB | | | | [address], | | | | | | [place] [address] | | | | + + + + + + | Platelet | 222Comment: Testing | 150 - 400 K/uL | EXTERNAL | | | Count | performed at [facility], [address] | | LAB | | | Plasma | [address], | | | | | | [place] [address] | | | | + + + + + + | MPV | 7.8Comment: Testing | fl | EXTERNAL | | | | performed at [facility], [address] | | LAB | | | | [address], | | | | | | [place] [address] | | | | + + + + + + | Differentia | AUTOMATEDComment: | | EXTERNAL | | | l Type | Testing performed at | | LAB | | | | [facility], [address] | | | | | | [place], [place], [place] | | | | | | [address] | | | | + + + [...] EXTERNAL | | | | performed at [facility], [address] | | LAB | | | | [address], | | | | | | [place] [address] | | | | + + + [...] EXTERNAL | | | | performed at [facility], [address] | | LAB | | | | [address], | | | | | | [place] [address] | | | | + + + [...] | | | | | [place] [address] | | | | + + + + + + | K | 3.9Comment: Testing | 3.5 - 4.9 | EXTERNAL | | | | performed at [facility], [address] | mmol/L | LAB | | | | [address], | | | | | | [place] [address] | | | | + + + + + + | Cl | 101Comment: Testing | 99 - 109 mmol/L | EXTERNAL | | | | performed at [facility], [address] | | LAB | | | | [address], | | | | | | [place] [address] | | | | + + + + + + | CO2 | 24Comment: Testing | 23 - 32 mmol/L | EXTERNAL | | | | performed at [facility], [address] | | LAB | | | | [address], | | | | | | [place] [address] | | | | + + + + + + | Anion Gap | 12Comment: Testing | 5 - 20 mmol/L | EXTERNAL | | | | performed at [facility], [address] | | LAB | | | | [address], | | | | | | [place] [address] | | | | + + + + + + | Glucose, | 108 (H)Comment: Testing | 65 - 99 mg/dL | EXTERNAL | | | Fasting | performed at [facility], [address] | | LAB | | | | [address], | | | | | | [place] [address] | | | | + + + + + + | BUN | 12Comment: Testing | 8 - 25 mg/dL | EXTERNAL | | | | performed at [facility], [address] | | LAB | | | | [address], | | | | | | [place] [address] | | | | + + + + + + | Creatinine | 0.80Comment: Testing | 0.50 - 1.00 | EXTERNAL | | | | performed at [facility], [address] | mg/dL | LAB | | | | [address], | | | | | | [place] [address] | | | | + + + + + + | BUN/Creatin | 15Comment: Testing | | EXTERNAL | | | ine Ratio | performed at [facility], [address] | | LAB | | | | [address], | | | | | | [place] [address] | | | | + + + + + + | Calcium | 9.2Comment: Testing | 8.5 - 10.2 | EXTERNAL | | | | performed at [facility], [address] | mg/dL | LAB | | | | [address], | | | | | | [place] [address] | | | | + + + [...] | | | | | [place] [address] | | | | + + + [...] | EXTERNAL LAB | | performed at [facility];[address];[place] [address] | | + + + + +---------+ [...] | | | | | [place] [address] | | | | + + + + + + | RED CELL | 3.77Comment: Testing | 3.70 - 5.10 | EXTERNAL | | | COUNT | performed at [facility], [address] | M/uL | LAB | | | | [address], | | | | | | [place] [address] | | | | + + + + + + | Hgb | 10.8 (L)Comment: Testing | 11.3 - 15.5 | EXTERNAL | | | | performed at [facility], [address] | g/dL | LAB | | | | [address], | | | | | | [place] [address] | | | | + + + + + + | Hematocrit, | 31.9 (L)Comment: Testing | 34.0 - 46.0 % | EXTERNAL | | | POC | performed at [facility], [address] | | LAB | | | | [address], | | | | | | [place] [address] | | | | + + + + + + | MCV | 84.8Comment: Testing | 80.0 - 100.0 fl | EXTERNAL | | | | performed at [facility], [address] | | LAB | | | | [address], | | | | | | [place] [address] | | | | + + + + + + | MCH | 28.8Comment: Testing | 27.0 - 34.0 pg | EXTERNAL | | | | performed at [facility], [address] | | LAB | | | | [address], | | | | | | [place] [address] | | | | + + + + + + | MCHC | 33.9Comment: Testing | 32.0 - 35.5 | EXTERNAL | | | | performed at [facility], [address] | g/dL | LAB | | | | [address], | | | | | | [place] [address] | | | | + + + + + + | RDW-CV | 37.6Comment: Testing | 37 - 53 fl | EXTERNAL | | | | performed at [facility], [address] | | LAB | | | | [address], | | | | | | [place] [address] | | | | + + + + + + | Platelet | 183Comment: Testing | 150 - 400 K/uL | EXTERNAL | | | Count | performed at [facility], [address] | | LAB | | | Plasma | [address], | | | | | | [place] [address] | | | | + + + + + + | MPV | 7.9Comment: Testing | fl | EXTERNAL | | | | performed at [facility], [address] | | LAB | | | | [address], | | | | | | [place] [address] | | | | + + + + + + | Differentia | AUTOMATEDComment: | | EXTERNAL | | | l Type | Testing performed at | | LAB | | | | [facility], [address] | | | | | | [place] | | | | | | [address] | | | | + + + [...] EXTERNAL | | | | performed at [facility], [address] | uIU/mL | LAB | | | | [address], | | | | | | [place] [address] | | | | + + + [...] EXTERNAL | | | | performed at [facility], [address] | | LAB | | | | [facility], | | | | | | [place] [address] | | | | + + + [...] EXTERNAL | | | | performed at [facility], [address] | | LAB | | | | [address], | | | | | | [place] [address] | | | | + + + [...] | | | | | [place] [address] | | | | + + + + + + | K | 4.2Comment: Testing | 3.5 - 4.9 | EXTERNAL | | | | performed at [facility], [address] | mmol/L | LAB | | | | [address], | | | | | | [place] [address] | | | | + + + + + + | Cl | 104Comment: Testing | 99 - 109 mmol/L | EXTERNAL | | | | performed at [facility], [address] | | LAB | | | | [address], | | | | | | [place] [address] | | | | + + + [...] | | | | | [place] [address] | | | | + + + + + + | Glucose, | 110 (H)Comment: Testing | 65 - 99 mg/dL | EXTERNAL | | | Fasting | performed at [facility], [address] | | LAB | | | | [address], | | | | | | [place] [address] | | | | + + + + + + | BUN | 11Comment: Testing | 8 - 25 mg/dL | EXTERNAL | | | | performed at [facility], [address] | | LAB | | | | [address], | | | | | | [place] [address] | | | | + + + + + + | Creatinine | 0.73Comment: Testing | 0.50 - 1.00 | EXTERNAL | | | | performed at [facility], [address] | mg/dL | LAB | | | | [address], | | | | | | [place] [address] | | | | + + + + + + | BUN/Creatin | 15Comment: Testing | | EXTERNAL | | | ine Ratio | performed at [facility], [address] | | LAB | | | | [address], | | | | | | [place] [address] | | | | + + + + + + | Calcium | 9.0Comment: Testing | 8.5 - 10.2 | EXTERNAL | | | | performed at [facility], [address] | mg/dL | LAB | | | | [address], | | | | | | [place] [address] | | | | + + + [...] | | | | | | at [facility], [address] | | | | | | [address], | | | | | | [place] [address] | | | | + + + [...] EXTERNAL LAB | | Testing performed at [facility];[address] | | | [address];[place] [address] GRAM STAIN | | | GREATER THAN 10 WBCS/LPF | | | LESS THAN 10 SEC/LPF | | | NO ORGANISMS SEEN | | | Testing performed at [facility], [facility] [email or web address], | | | [place] [address] CULTURE | | | 3+ ZITA GLABRATAAbnormal | | | 2+ ZITA DUBLINIENSISAbnormal | | | 2+ KLEBSIELLA OXYTOCAAbnormal | | | 1+ NORMAL UPPER RESPIRATORY | | | CURTIS Testing | | | performed at [facility], [facility], [place] [address] | | | REPORT STATUS 11/23/2013 FINAL [...] EXTERNAL LAB | | Testing performed at [facility];[address] | | | [address];[place] [address] SPECIAL REQUESTS | | | PICC LINE | | | Testing performed at [facility];[address] [place] [address] CULTURE | | | NO GROWTH 6 DAYS | | | Testing performed at [facility], [address] | | | [place] [address] REPORT STATUS | | | 11/23/2013 FINAL [...] EXTERNAL LAB | | Testing performed at [facility];[address] | | | [facility] [address] SPECIAL REQUESTS | | | REPEAT TEST USING ALTERNATE ASSAYED CONTROL MATERIAL | | | Testing performed at [facility];[address] | | | [address];[place] [address] CULTURE | | | NO GROWTH 6 DAYS | | | Testing performed at [facility], [address] [place], | | | [place] [address] REPORT STATUS 11/23/2013 | | | FINAL [...] | Testing performed at | | | [facility];[address];[place] [address] CULTURE | | | NO GROWTH | | | Testing performed at [facility], [address] [facility], | | | [place] [address] REPORT STATUS | | | 11/18/2013 FINAL [...] | | | | | [place] [address] | | | | + + + + + + | TIBC | 155 (L)Comment: Testing | 260 - 490 ug/dL | EXTERNAL | | | | performed at [facility], [address] | | LAB | | | | [address], | | | | | | [place] [address] | | | | + + + + + + | Iron | 20Comment: Testing | 15 - 50 % | EXTERNAL | | | Saturation | performed at [facility], [address] | | LAB | | | | [address], | | | | | | [place] [address] | | | | + + + [...] EXTERNAL | | | | performed at [facility], [address] | | LAB | | | | [address], | | | | | | [place] [address] | | | | + + + + + + | RED CELL | 3.51 (L)Comment: Testing | 3.70 - 5.10 | EXTERNAL | | | COUNT | performed at [facility], [address] | M/uL | LAB | | | | [address], | | | | | | [place] [address] | | | | + + + + + + | Hgb | 9.6 (L)Comment: Testing | 11.3 - 15.5 | EXTERNAL | | | | performed at [facility], [address] | g/dL | LAB | | | | [address], | | | | | | [place] [address] | | | | + + + + + + | Hematocrit, | 29.5 (L)Comment: Testing | 34.0 - 46.0 % | EXTERNAL | | | POC | performed at [facility], [address] | | LAB | | | | [address], | | | | | | [place] [address] | | | | + + + + + + | MCV | 84.3Comment: Testing | 80.0 - 100.0 fl | EXTERNAL | | | | performed at [facility], [address] | | LAB | | | | [address], | | | | | | [place] [address] | | | | + + + + + + | MCH | 27.5Comment: Testing | 27.0 - 34.0 pg | EXTERNAL | | | | performed at [facility], [address] | | LAB | | | | [address], | | | | | | [place] [address] | | | | + + + + + + | MCHC | 32.6Comment: Testing | 32.0 - 35.5 | EXTERNAL | | | | performed at [facility], [address] | g/dL | LAB | | | | [address], | | | | | | [place] [address] | | | | + + + + + + | RDW-CV | 36.3 (L)Comment: Testing | 37 - 53 fl | EXTERNAL | | | | performed at [facility], [address] | | LAB | | | | [address], | | | | | | [place] [address] | | | | + + + + + + | Platelet | 151Comment: Testing | 150 - 400 K/uL | EXTERNAL | | | Count | performed at [facility], [address] | | LAB | | | Plasma | [address], | | | | | | [place] [address] | | | | + + + + + + | MPV | 7.9Comment: Testing | fl | EXTERNAL | | | | performed at [facility], [address] | | LAB | | | | [address], | | | | | | [place] [address] | | | | + + + + + + | Differentia | AUTOMATEDComment: | | EXTERNAL | | | l Type | Testing performed at | | LAB | | | | [facility], [address] | | | | | | [place] | | | | | | [address] | | | | + + + [...] EXTERNAL | | | | performed at [facility], [address] | | LAB | | | | [address], | | | | | | [place] [address] | | | | + + + [...] | | | External | performed at [facility], [address] | | LAB | | | | [address], | | | | | | [place] [address] | | | | + + + [...] | | | | | [place] [address] | | | | + + + [...] | | | | | [place] [address] | | | | + + + + + + | K | 3.8Comment: Testing | 3.5 - 4.9 | EXTERNAL | | | | performed at [facility], [address] | mmol/L | LAB | | | | [address], | | | | | | [place] [address] | | | | + + + [...] | | | | | [place] [address] | | | | + + + + + + | Anion Gap | 7Comment: Testing | 5 - 20 mmol/L | EXTERNAL | | | | performed at [facility], [address] | | LAB | | | | [address], | | | | | | [place] [address] | | | | + + + + + + | Glucose, | 131 (H)Comment: Testing | 65 - 99 mg/dL | EXTERNAL | | | Fasting | performed at [facility], [address] | | LAB | | | | [address], | | | | | | [place] [address] | | | | + + + + + + | BUN | 7 (L)Comment: Testing | 8 - 25 mg/dL | EXTERNAL | | | | performed at [facility], [address] | | LAB | | | | [address], | | | | | | [place] [address] | | | | + + + + + + | Creatinine | 0.61Comment: Testing | 0.50 - 1.00 | EXTERNAL | | | | performed at [facility], [address] | mg/dL | LAB | | | | [address], | | | | | | [place] [address] | | | | + + + + + + | BUN/Creatin | 11Comment: Testing | | EXTERNAL | | | ine Ratio | performed at [facility], [address] | | LAB | | | | [address], | | | | | | [place] [address] | | | | + + + + + + | Calcium | 8.5Comment: Testing | 8.5 - 10.2 | EXTERNAL | | | | performed at [facility], [address] | mg/dL | LAB | | | | [address], | | | | | | [place] [address] | | | | + + + + + + | Protein, | 5.2 (L)Comment: Testing | 6.3 - 8.2 g/dL | EXTERNAL | | | Total | performed at [facility], [address] | | LAB | | | | [address], | | | | | | [place] [address] | | | | + + + + + + | Albumin | 3.1 (L)Comment: Testing | 3.3 - 4.8 g/dL | EXTERNAL | | | | performed at [facility], [address] | | LAB | | | | [address], | | | | | | [place] [address] | | | | + + + + + + | Globulin | 2.1Comment: Testing | 1.3 - 4.9 g/dL | EXTERNAL | | | | performed at [facility], [address] | | LAB | | | | [address], | | | | | | [place] [address] | | | | + + + + + + | A/G Ratio | 1.5Comment: Testing | 1.0 - 2.4 | EXTERNAL | | | | performed at [facility], [address] | | LAB | | | | [email or web address], | | | | | | [place] [address] | | | | + + + + + + | Bilirubin | 0.6Comment: Testing | 0.1 - 1.5 mg/dL | EXTERNAL | | | Total | performed at [facility], [address] | | LAB | | | | [address], | | | | | | [place] [address] | | | | + + + + + + | ALP, | 48Comment: Testing | 35 - 115 U/L | EXTERNAL | | | External | performed at [facility], [address] | | LAB | | | | [address], | | | | | | [place] [address] | | | | + + + + + + | AST | 19Comment: Testing | 10 - 45 U/L | EXTERNAL | | | | performed at [facility], [address] | | LAB | | | | [address], | | | | | | [place] [address] | | | | + + + + + + | ALT | 21Comment: Testing | 10 - 65 U/L | EXTERNAL | | | | performed at [facility], [address] | | LAB | | | | [address], | | | | | | [place] [address] | | | | + + + [...] | | | | | | at [facility], [address] | | | | | | [address], | | | | | | [place] [address] | | | | + + + [...] EXTERNAL | | | | performed at [facility];[address] | mmol/L | LAB | | | | [address];[place], [place] | | | | | | [address] | | | | + + + [...] | Testing performed at | | | [facility];[address];[place] [address] CULTURE | | | NO GROWTH | | | Testing performed at [facility], [address] [facility], | | | [place] [address] REPORT STATUS | | | 11/17/2013 FINAL [...] | | EN LEVEL | performed at [facility];[address] | ug/mL | LAB | | | | [address];[place] | | | | | | [address] | | | | + + + [...] EXTERNAL | | | | performed at [facility], [address] | | LAB | | | | [address], | | | | | | [place] [address] | | | | + + + + + + | RED CELL | 3.54 (L)Comment: Testing | 3.70 - 5.10 | EXTERNAL | | | COUNT | performed at [facility], [address] | M/uL | LAB | | | | [address], | | | | | | [place] [address] | | | | + + + + + + | Hgb | 10.1 (L)Comment: Testing | 11.3 - 15.5 | EXTERNAL | | | | performed at [facility], [address] | g/dL | LAB | | | | [address], | | | | | | [place] [address] | | | | + + + + + + | Hematocrit, | 29.5 (L)Comment: Testing | 34.0 - 46.0 % | EXTERNAL | | | POC | performed at [facility], [address] | | LAB | | | | [address], | | | | | | [place] [address] | | | | + + + + + + | MCV | 83.4Comment: Testing | 80.0 - 100.0 fl | EXTERNAL | | | | performed at [facility], [address] | | LAB | | | | [address], | | | | | | [place] [address] | | | | + + + + + + | MCH | 28.7Comment: Testing | 27.0 - 34.0 pg | EXTERNAL | | | | performed at [facility], [address] | | LAB | | | | [address], | | | | | | [place] [address] | | | | + + + + + + | MCHC | 34.3Comment: Testing | 32.0 - 35.5 | EXTERNAL | | | | performed at [facility], [address] | g/dL | LAB | | | | [address], | | | | | | [place] [address] | | | | + + + + + + | RDW-CV | 37.6Comment: Testing | 37 - 53 fl | EXTERNAL | | | | performed at [facility], [address] | | LAB | | | | [address], | | | | | | [place] [address] | | | | + + + + + + | Platelet | 176Comment: Testing | 150 - 400 K/uL | EXTERNAL | | | Count | performed at [facility], [address] | | LAB | | | Plasma | [address], | | | | | | [place] [address] | | | | + + + + + + | MPV | 7.8Comment: Testing | fl | EXTERNAL | | | | performed at [facility], [address] | | LAB | | | | [address], | | | | | | [place] [address] | | | | + + + + + + | Differentia | AUTOMATEDComment: | | EXTERNAL | | | l Type | Testing performed at | | LAB | | | | [facility], [address] | | | | | | [place] | | | | | | [address] | | | | + + + [...] EXTERNAL | | | | performed at [facility];[address] | | LAB | | | | [address];[place], [place] | | | | | | [address] | | | | + + + [...] EXTERNAL | | | | performed at [facility] | | LAB | | | | [address];[place] | | | | | | [address] | | | | + + + [...] | | EN LEVEL | performed at [facility];[address] | ug/mL | LAB | | | | [address];[place], [place] | | | | | | [address] | | | | + + + [...] EXTERNAL | | | | performed at [facility];[address] | mmol/L | LAB | | | | [address];[place] | | | | | | [address] | | | | + + + + + + | K | 3.1 (L)Comment: Testing | 3.5 - 4.9 | EXTERNAL | | | | performed at [facility];[address] | mmol/L | LAB | | | | [address];[place] | | | | | | [address] | | | | + + + + + + | Cl | 109Comment: Testing | 99 - 109 mmol/L | EXTERNAL | | | | performed at [facility];[address] | | LAB | | | | [address];[place] | | | | | | [address] | | | | + + + + + + | CO2 | 27Comment: Testing | 23 - 32 mmol/L | EXTERNAL | | | | performed at [facility];[address] | | LAB | | | | [address];[place] | | | | | | [address] | | | | + + + + + + | Anion Gap | 10Comment: Testing | 5 - 20 mmol/L | EXTERNAL | | | | performed at [facility];[address] | | LAB | | | | [address];[place] | | | | | | [address] | | | | + + + + + + | Glucose, | 78Comment: Testing | 65 - 99 mg/dL | EXTERNAL | | | Fasting | performed at [facility];[address] | | LAB | | | | [address];[place] | | | | | | [address] | | | | + + + + + + | BUN | 7 (L)Comment: Testing | 8 - 25 mg/dL | EXTERNAL | | | | performed at [facility];[address] | | LAB | | | | [address];[place] | | | | | | [address] | | | | + + + + + + | Creatinine | 0.77Comment: Testing | 0.50 - 1.00 | EXTERNAL | | | | performed at [facility];[address] | mg/dL | LAB | | | | [address];[place] | | | | | | [address] | | | | + + + + + + | BUN/Creatin | 9Comment: Testing | | EXTERNAL | | | ine Ratio | performed at [facility];[address] | | LAB | | | | [address];[place] | | | | | | [address] | | | | + + + + + + | Calcium | 7.8 (L)Comment: Testing | 8.5 - 10.2 | EXTERNAL | | | | performed at [facility];[address] | mg/dL | LAB | | | | [address];[place], [place] | | | | | | [address] | | | | + + + [...] | | | | | | at [facility];[address];[place] [address] | | | | + + + [...] | | EN LEVEL | performed at [facility];[address] | ug/mL | LAB | | | | [address];[place] | | | | | | [address] | | | | + + + [...] EXTERNAL | | | | performed at [facility];[address] | | LAB | | | | [address] [facility];[place], [place] | | | | | | [address] | | | | + + + [...] | | | | | | ACUTE CO Testing | | | | | | performed at [facility] | | | | | | [address];[place], [place] | | | | | | [address] | | | | + + + [...] EXTERNAL | | | | performed at [facility];[address] | | LAB | | | | [address];[place], [place] | | | | | | [address] | | | | + + + [...] | | EN LEVEL | performed at [facility];[address] | ug/mL | LAB | | | | [address];[place], [place] | | | | | | [address] | | | | + + + [...] TR | | | Vmax: 2.44 m/s Teachers Aide: Authenticated by: Finesse Cortez | | | [...] 23.26 cmAVA Vmax: 3.14 cm2AVA (VTI): 2.90 [id number] Dopp: | | 4.57 l/[id number] Dopp: 7.95 l/minHR: 117.60 BPMLVOT maxP.36 mmHgLVOT [...] maxP.88 mmHgTR Vmax: | | 2.44 m/s Teachers Aide: ABAuthenticated by: Finesse Aponte Date/Time: 11-15-2013 | [...] |TR Vmax: 2.44 m/s | | | |Teachers Aide: AB | |Authenticated by: Finesse Cortez MD [...] | | EN LEVEL | performed at [facility];[address] | ug/mL | LAB | | | | [address];[place], [place] | | | | | | [address] | | | | + + + [...] EXTERNAL | | | | performed at [facility];888 | mmol/L | LAB | | | | [address];[place] | | | | | | [address] | | | | + + + + + + | K | 3.9Comment: Testing | 3.5 - 4.9 | EXTERNAL | | | | performed at [facility];888 | mmol/L | LAB | | | | [address];[place] | | | | | | [address] | | | | + + + + + + | Cl | 114 (H)Comment: Testing | 99 - 109 mmol/L | EXTERNAL | | | | performed at [facility];[address] | | LAB | | | | [address];[place] | | | | | | [address] | | | | + + + + + + | CO2 | 20 (L)Comment: Testing | 23 - 32 mmol/L | EXTERNAL | | | | performed at [facility];[address] | | LAB | | | | [address];[place] | | | | | | [address] | | | | + + + + + + | Anion Gap | 14Comment: Testing | 5 - 20 mmol/L | EXTERNAL | | | | performed at [facility];[address] | | LAB | | | | [address];[place] | | | | | | [address] | | | | + + + + + + | Glucose, | 153 (H)Comment: Testing | 65 - 99 mg/dL | EXTERNAL | | | Fasting | performed at [facility];[address] | | LAB | | | | [address];[place] | | | | | | [address] | | | | + + + + + + | BUN | 8Comment: Testing | 8 - 25 mg/dL | EXTERNAL | | | | performed at [facility];[address] | | LAB | | | | [address];[place] | | | | | | [address] | | | | + + + + + + | Creatinine | 0.92Comment: Testing | 0.50 - 1.00 | EXTERNAL | | | | performed at [facility];888 | mg/dL | LAB | | | | [address];[place] | | | | | | [address] | | | | + + + + + + | BUN/Creatin | 9Comment: Testing | | EXTERNAL | | | ine Ratio | performed at [facility];888 | | LAB | | | | [address];[place] | | | | | | [address] | | | | + + + + + + | Calcium | 7.4 (L)Comment: Testing | 8.5 - 10.2 | EXTERNAL | | | | performed at [facility];888 | mg/dL | LAB | | | | [address];[place] | | | | | | [address] | | | | + + + [...] | | | | | | at [facility];[address];[place] [address] | | | | + + + [...] EXTERNAL | | | | performed at [facility];888 | | LAB | | | | [address];[place] | | | | | | [address] | | | | + + + [...] | | | | | | ACUTE CO Testing | | | | | | performed at [facility];[address] | | | | | | [address];[place], [place] | | | | | | [address] | | | | + + + [...] EXTERNAL | | | | performed at [facility];888 | | LAB | | | | [address];[place] | | | | | | [address] | | | | + + + [...] | | EN LEVEL | performed at [facility];888 | ug/mL | LAB | | | | [address];[place], [place] | | | | | | [address] | | | | + + + [...] EXTERNAL | | | | performed at [facility];888 | mmol/L | LAB | | | | [address];[place], [place] | | | | | | [address] | | | | + + + [...] EXTERNAL | | | | performed at [facility] | | LAB | | | | [address];[place] | | | | | | [address] | | | | + + + [...] | | | | | | ACUTE CO CKTRP PHONED TO | | | | | | ICU GAYLE N AT 0540 BY | | | | | | LJREAD BACK RESULTS | | | | | | VERIFIEDTesting | | | | | | performed at [facility] [facility];[address] | | | | | | [address];[place] | | | | | | [address] | | | | + + + [...] | LAB | | | | [address], | | | | | | [place] [address] | | | | + + + + + + | RED CELL | 3.94Comment: Testing | 3.70 - 5.10 | EXTERNAL | | | COUNT | performed at [facility], [address] | M/uL | LAB | | | | [address], | | | | | | [place] [address] | | | | + + + + + + | Hgb | 10.9 (L)Comment: Testing | 11.3 - 15.5 | EXTERNAL | | | | performed at [facility], [address] | g/dL | LAB | | | | [address], | | | | | | [place] [address] | | | | + + + + + + | Hematocrit, | 33.7 (L)Comment: Testing | 34.0 - 46.0 % | EXTERNAL | | | POC | performed at [facility], [address] | | LAB | | | | [address], | | | | | | [place] [address] | | | | + + + + + + | MCV | 85.6Comment: Testing | 80.0 - 100.0 fl | EXTERNAL | | | | performed at [facility], [address] | | LAB | | | | [address], | | | | | | [place] [address] | | | | + + + + + + | MCH | 27.7Comment: Testing | 27.0 - 34.0 pg | EXTERNAL | | | | performed at [facility], [address] | | LAB | | | | [address], | | | | | | [place] [address] | | | | + + + + + + | MCHC | 32.3Comment: Testing | 32.0 - 35.5 | EXTERNAL | | | | performed at [facility], [address] | g/dL | LAB | | | | [address], | | | | | | [place] [address] | | | | + + + + + + | RDW-CV | 37.6Comment: Testing | 37 - 53 fl | EXTERNAL | | | | performed at [facility], [address] | | LAB | | | | [address], | | | | | | [place] [address] | | | | + + + + + + | Platelet | 196Comment: Testing | 150 - 400 K/uL | EXTERNAL | | | Count | performed at [facility], [address] | | LAB | | | Plasma | [address], | | | | | | [place] [address] | | | | + + + + + + | MPV | 7.3Comment: Testing | fl | EXTERNAL | | | | performed at [facility], [address] | | LAB | | | | [address], | | | | | | [place] [address] | | | | + + + + + + | Differentia | AUTOMATEDComment: | | EXTERNAL | | | l Type | Testing performed at | | LAB | | | | [facility], [address] | | | | | | [place] | | | | | | [address] | | | | + + + [...] | | | Serum | performed at [facility];[address] | mOsm/kg | LAB | | | | [address];[place] | | | | | | [address] | | | | + + + [...] EXTERNAL | | | | performed at [facility];[address] | | LAB | | | | [address];[place], [place] | | | | | | [address] | | | | + + + [...] | | EN LEVEL | performed at [facility];[address] | ug/mL | LAB | | | | [address];[place], [place] | | | | | | [address] | | | | + + + [...] EXTERNAL | | | | performed at [facility];[address] | mmol/L | LAB | | | | [address];[place] | | | | | | [address] | | | | + + + + + + | K | 3.2 (L)Comment: Testing | 3.5 - 4.9 | EXTERNAL | | | | performed at [facility];888 | mmol/L | LAB | | | | [address];[place] | | | | | | [address] | | | | + + + + + + | Cl | 117 (H)Comment: Testing | 99 - 109 mmol/L | EXTERNAL | | | | performed at [facility];[address] | | LAB | | | | [address];[place] | | | | | | [address] | | | | + + + + + + | CO2 | 13 (LL)Comment: CO2 | 23 - 32 mmol/L | EXTERNAL | | | | PHONED TO AIDEE Butt AT | | LAB | | | | 0520 BY LJREAD BACK | | | | | | RESULTS VERIFIEDTesting | | | | | | performed at [facility];[address] | | | | | | [address];[place] | | | | | | [address] | | | | + + + + + + | Anion Gap | 20Comment: Testing | 5 - 20 mmol/L | EXTERNAL | | | | performed at [facility];[address] | | LAB | | | | [address];[place] | | | | | | [address] | | | | + + + + + + | Glucose, | 130 (H)Comment: Testing | 65 - 99 mg/dL | EXTERNAL | | | Fasting | performed at [facility];[address] | | LAB | | | | [address];[place] | | | | | | [address] | | | | + + + + + + | BUN | 8Comment: Testing | 8 - 25 mg/dL | EXTERNAL | | | | performed at [facility];[address] | | LAB | | | | [address];[place] | | | | | | [address] | | | | + + + + + + | Creatinine | 0.69Comment: Testing | 0.50 - 1.00 | EXTERNAL | | | | performed at [facility];888 | mg/dL | LAB | | | | [address];[place] | | | | | | [address] | | | | + + + + + + | BUN/Creatin | 12Comment: Testing | | EXTERNAL | | | ine Ratio | performed at [facility];[address] | | LAB | | | | [address];[place] | | | | | | [address] | | | | + + + + + + | Calcium | 6.7 (L)Comment: Testing | 8.5 - 10.2 | EXTERNAL | | | | performed at [facility];888 | mg/dL | LAB | | | | [address];[place] | | | | | | [address] | | | | + + + + + + | Protein, | 5.2 (L)Comment: Testing | 6.3 - 8.2 g/dL | EXTERNAL | | | Total | performed at [facility];[address] | | LAB | | | | [address];[place] | | | | | | [address] | | | | + + + + + + | Albumin | 3.3Comment: Testing | 3.3 - 4.8 g/dL | EXTERNAL | | | | performed at [facility];[address] | | LAB | | | | [address];[place] | | | | | | [address] | | | | + + + + + + | Globulin | 1.9Comment: Testing | 1.3 - 4.9 g/dL | EXTERNAL | | | | performed at [facility];[address] | | LAB | | | | [address];[place] | | | | | | [address] | | | | + + + + + + | A/G Ratio | 1.8Comment: Testing | 1.0 - 2.4 | EXTERNAL | | | | performed at [facility];[address] | | LAB | | | | [address];[place] | | | | | | [address] | | | | + + + + + + | Bilirubin | 0.2Comment: Testing | 0.1 - 1.5 mg/dL | EXTERNAL | | | Total | performed at [facility];[address] | | LAB | | | | [address];[place] | | | | | | [address] | | | | + + + + + + | ALP, | 47Comment: Testing | 35 - 115 U/L | EXTERNAL | | | External | performed at [facility];[address] | | LAB | | | | [address];[place] | | | | | | [address] | | | | + + + + + + | AST | 49 (H)Comment: Testing | 10 - 45 U/L | EXTERNAL | | | | performed at [facility];[address] | | LAB | | | | [address];[place] | | | | | | [address] | | | | + + + + + + | ALT | 61Comment: Testing | 10 - 65 U/L | EXTERNAL | | | | performed at [facility];[address] | | LAB | | | | [address];[place] | | | | | | [address] | | | | + + + [...] | | | | | | at [facility];[address] [place] [address] | | | | | | [facility];[place] [address] | | | | + + + [...] | | | Fingerstick | performed at [facility];[address] | | LAB | | | | [address];[place] | | | | | | [address] | | | | + + + [...] | | LAB | | | | [facility];[address];[place] [address] | | | | + + + + + + | PCO2 ART | 40Comment: Testing | 35 - 45 mmHg | EXTERNAL | | | | performed at [facility];[address] | | LAB | | | | [address];[place] | | | | | | [address] | | | | + + + + + + | PO2 ART | 283 (H)Comment: Testing | 80 - 105 mmHg | EXTERNAL | | | | performed at [facility];[address] | | LAB | | | | [address];[place] | | | | | | [address] | | | | + + + + + + | Lactate, | 3.7 (H)Comment: Testing | 0.36 - 1.25 | EXTERNAL | | | Arterial | performed at [facility];888 | mmol/L | LAB | | | | [address];[place] | | | | | | [address] | | | | + + + + + + | HCO3 ART | 14 (L)Comment: Testing | 22 - 26 mmol/L | EXTERNAL | | | | performed at [facility];[address] | | LAB | | | | [address];[place] | | | | | | [address] | | | | + + + + + + | POC | 15 (L)Comment: Testing | 23 - 27 mEq/L | EXTERNAL | | | APPEARANCE | performed at [facility];[address] | | LAB | | | UA | [address];[place] | | | | | | [address] | | | | + + + + + + | Base | 15 (H)Comment: Testing | 0.0 - 2.0 | EXTERNAL | | | deficit | performed at [facility];[address] | mmol/L | LAB | | | | [address];[place] | | | | | | [address] | | | | + + + + + + | O2 SAT ART | 100 (H)Comment: Testing | 95 - 98 % | EXTERNAL | | | | performed at [facility];[address] | | LAB | | | | [address];[place] | | | | | | [address] | | | | + + + + + + | FiO2, POC | 70Comment: Testing | % | EXTERNAL | | | | performed at [facility];[address] | | LAB | | | | [address];[place] | | | | | | [address] | | | | + + + + + + | Comment, | Tidal Volume = | | EXTERNAL | | | POC | 500Comment: Peep = 5Resp | | LAB | | | | Rate = 15Testing | | | | | | performed at [facility];[address] | | | | | | [address];[place] | | | | | | [address] | | | | + + + [...] EXTERNAL | | | | performed at [facility];[address] | mmol/L | LAB | | | | [address];[place], [place] | | | | | | [address] | | | | + + + [...] | | | (Calc) | performed at [facility];888 | mmol/L | LAB | | | | [address];[place] | | | | | | [address] | | | | + + + + + + | pH, Bld | 7.179 (L)Comment: | 7.300 - 7.450 | EXTERNAL | | | | Testing performed at | | LAB | | | | [facility];[address] [facility] | | | | | | Blvd;[place] [address] | | | | + + + [...] | | | Patient | performed at [facility] | | LAB | | | | [address];[place], [place] | | | | | | [address] | | | | + + + [...] | | | | | performed at [facility];[address] | | | | | | [address];[place], [place] | | | | | | [address] | | | | + + + [...] EXTERNAL | | | | performed at [facility];[address] | | LAB | | | | [address];[place] | | | | | | [address] | | | | + + + + + + | RED CELL | 4.41Comment: Testing | 3.70 - 5.10 | EXTERNAL | | | COUNT | performed at [facility];[address] | M/uL | LAB | | | | [address];[place] | | | | | | [address] | | | | + + + + + + | Hgb | 12.7Comment: Testing | 11.3 - 15.5 | EXTERNAL | | | | performed at [facility];888 | g/dL | LAB | | | | [address];[place] | | | | | | [address] | | | | + + + + + + | Hematocrit, | 37.4Comment: Testing | 34.0 - 46.0 % | EXTERNAL | | | POC | performed at [facility];[address] | | LAB | | | | [address];[place] | | | | | | [address] | | | | + + + + + + | MCV | 84.7Comment: Testing | 80.0 - 100.0 fl | EXTERNAL | | | | performed at [facility];[address] | | LAB | | | | [address];[place] | | | | | | [address] | | | | + + + + + + | MCH | 28.8Comment: Testing | 27.0 - 34.0 pg | EXTERNAL | | | | performed at [facility];[address] | | LAB | | | | [address];[place] | | | | | | [address] | | | | + + + + + + | MCHC | 34.0Comment: Testing | 32.0 - 35.5 | EXTERNAL | | | | performed at [facility];888 | g/dL | LAB | | | | [address];[place] | | | | | | [address] | | | | + + + + + + | RDW-CV | 37.2Comment: Testing | 37 - 53 fl | EXTERNAL | | | | performed at [facility];[address] | | LAB | | | | [address];[place] | | | | | | [address] | | | | + + + + + + | Platelet | 296Comment: Testing | 150 - 400 K/uL | EXTERNAL | | | Count | performed at [facility];[address] | | LAB | | | Plasma | [address];[place] | | | | | | [address] | | | | + + + + + + | MPV | 7.2Comment: Testing | fl | EXTERNAL | | | | performed at [facility];[address] | | LAB | | | | [address];[place] | | | | | | [address] | | | | + + + + + + | Differentia | AUTOMATEDComment: | | EXTERNAL | | | l Type | Testing performed at | | LAB | | | | [facility];[address];[place] [address] | | | | + + + [...] EXTERNAL | | | | performed at [facility];[address] | | LAB | | | | [address];[place] | | | | | | [address] | | | | + + + [...] EXTERNAL | | | | performed at [facility] | | LAB | | | | [address];[place], [place] | | | | | | [address] | | | | + + + [...] | | EN LEVEL | performed at [facility];888 | ug/mL | LAB | | | | [address];[place] | | | | | | [address] | | | | + + + [...] | | | Total | performed at [facility];[address] | | LAB | | | | [address];[place] | | | | | | [address] | | | | + + + + + + | Albumin | 3.1 (L)Comment: Testing | 3.3 - 4.8 g/dL | EXTERNAL | | | | performed at [facility];[address] | | LAB | | | | [address];[place] | | | | | | [address] | | | | + + + + + + | Bilirubin | 0.2Comment: Testing | 0.1 - 1.5 mg/dL | EXTERNAL | | | Total | performed at [facility];[address] | | LAB | | | | [address];[place] | | | | | | [address] | | | | + + + + + + | Bilirubin | <0.1Comment: Testing | 0.0 - 0.3 mg/dL | EXTERNAL | | | Direct | performed at [facility];[address] | | LAB | | | | [address];[place] | | | | | | [address] | | | | + + + + + + | ALP, | 76Comment: Testing | 35 - 115 U/L | EXTERNAL | | | External | performed at [facility];[address] | | LAB | | | | [address];[place] | | | | | | [address] | | | | + + + + + + | AST | 75 (H)Comment: Testing | 10 - 45 U/L | EXTERNAL | | | | performed at [facility];[address] | | LAB | | | | [address];[place] | | | | | | [address] | | | | + + + + + + | ALT | 67 (H)Comment: Testing | 10 - 65 U/L | EXTERNAL | | | | performed at [facility];[address] | | LAB | | | | [address];[place] | | | | | | [address] | | | | + + + [...] EXTERNAL | | | | performed at [facility];888 | mmol/L | LAB | | | | [address];[place] | | | | | | [address] | | | | + + + + + + | K | 3.0 (L)Comment: Testing | 3.5 - 4.9 | EXTERNAL | | | | performed at [facility];888 | mmol/L | LAB | | | | [address];[place] | | | | | | [address] | | | | + + + + + + | Cl | 114 (H)Comment: Testing | 99 - 109 mmol/L | EXTERNAL | | | | performed at [facility];[address] | | LAB | | | | [address];[place] | | | | | | [address] | | | | + + + + + + | CO2 | 16 (L)Comment: Testing | 23 - 32 mmol/L | EXTERNAL | | | | performed at [facility];[address] | | LAB | | | | [address];[place] | | | | | | [address] | | | | + + + + + + | Anion Gap | 16Comment: Testing | 5 - 20 mmol/L | EXTERNAL | | | | performed at [facility];[address] | | LAB | | | | [address];[place] | | | | | | [address] | | | | + + + + + + | Glucose, | 187 (H)Comment: Testing | 65 - 99 mg/dL | EXTERNAL | | | Fasting | performed at [facility];[address] | | LAB | | | | [address];[place] | | | | | | [address] | | | | + + + + + + | BUN | 10Comment: Testing | 8 - 25 mg/dL | EXTERNAL | | | | performed at [facility];[address] | | LAB | | | | [address];[place] | | | | | | [address] | | | | + + + + + + | Creatinine | 0.79Comment: Testing | 0.50 - 1.00 | EXTERNAL | | | | performed at [facility];888 | mg/dL | LAB | | | | [address];[place] | | | | | | [address] | | | | + + + + + + | BUN/Creatin | 13Comment: Testing | | EXTERNAL | | | ine Ratio | performed at [facility];[address] | | LAB | | | | [address];[place] | | | | | | [address] | | | | + + + + + + | Calcium | 6.5 (L)Comment: Testing | 8.5 - 10.2 | EXTERNAL | | | | performed at [facility];888 | mg/dL | LAB | | | | [address];[place] | | | | | | [address] | | | | + + + [...] | | | | | | at [facility];[address] | | | | | [address];[place] [address] | | | | + + + [...] Conversion - 06/15/2019 1:42 PM PDT RONALD [id number] years | | FemaleCT HEAD WO CONTRAST11/14/2013 [...] Addenda | + + | Addendum by aMnsoor Clark MD on 11/14/2013 11:35 PM Also [...] | Testing performed at | | | [facility];[address];[place] [address] GRAM STAIN | | | GREATER THAN 10 WBCS/LPF | | | LESS THAN 10 SEC/LPF | | | 2+ GRAM POSITIVE COCCI | | | 1+ GRAM POSITIVE RODS | | | Testing performed at [facility], [address] | | | [place] [address] CULTURE | | | 2+ NORMAL UPPER RESPIRATORY CURTIS | | | Testing performed at [facility], [address] | | | [place] [address] REPORT STATUS | | | 11/16/2013 FINAL [...] EXTERNAL | | | | performed at [facility];[address] | | LAB | | | | [address];[place] | | | | | | [address] | | | | + + + + + + | RBC, UA | 0-2Comment: Testing | 0 - 5 /hpf | EXTERNAL | | | | performed at [facility];[address] | | LAB | | | | [address];[place] | | | | | | [address] | | | | + + + + + + | Epithelial | NONE SEENComment: | /lpf | EXTERNAL | | | Cells | Testing performed at | | LAB | | | | [facility];[address];[place] [address] | | | | + + + + + + | Bacteria, | TRACE (A)Comment: | | EXTERNAL | | | UA | Testing performed at | | LAB | | | | [facility];[address] [place] [address] | | | | | | [facility];[place] [address] | | | | + + + [...] EXTERNAL | | | | performed at [facility];[address] | | LAB | | | | [address];[place] | | | | | | [address] | | | | + + + + + + | Clarity | CLEARComment: Testing | | EXTERNAL | | | | performed at [facility];[address] | | LAB | | | | [address];[place] | | | | | | [address] | | | | + + + + + + | Specific | 1.004Comment: Testing | 1.001 - 1.035 | EXTERNAL | | | [place] | performed at [facility];[address] | | LAB | | | | [address];[place] | | | | | | [address] | | | | + + + + + + | Leukocyte | TRACE (A)Comment: | | EXTERNAL | | | Esterase, | Testing performed at | | LAB | | | Urine | [facility];[address];[place] [address] | | | | + + + + + + | Nitrite, | NEGATIVEComment: Testing | | EXTERNAL | | | Urine | performed at [facility];[address] | | LAB | | | | [address];[place] | | | | | | [address] | | | | + + + + + + | Urobilinoge | 0.2Comment: Testing | mg/dL | EXTERNAL | | | n, Urine | performed at [facility];[address] | | LAB | | | | [address];[place] | | | | | | [address] | | | | + + + + + + | Protein, | NEGATIVEComment: Testing | mg/dL | EXTERNAL | | | Urine | performed at [facility];[address] | | LAB | | | | [address];[place] | | | | | | [address] | | | | + + + + + + | pH, Urine | 5.0Comment: Testing | 4.6 - 8.0 | EXTERNAL | | | | performed at [facility];[address] | | LAB | | | | [address];[place] | | | | | | [address] | | | | + + + + + + | Blood, | NEGATIVEComment: Testing | | EXTERNAL | | | Urine | performed at [facility];[address] | | LAB | | | | [address];[place] | | | | | | [address] | | | | + + + + + + | Ketones | NEGATIVEComment: Testing | mg/dL | EXTERNAL | | | | performed at [facility];[address] | | LAB | | | | [address];[place] | | | | | | [address] | | | | + + + + + + | Bilirubin, | NEGATIVEComment: Testing | | EXTERNAL | | | Urine | performed at [facility];[address] | | LAB | | | | [address];[place] | | | | | | [address] | | | | + + + + + + | Glucose, | NEGATIVEComment: Testing | mg/dL | EXTERNAL | | | Urine | performed at [facility];[address] | | LAB | | | | [address];[place] | | | | | | [address] | | | | + + + [...] EXTERNAL LAB | | Testing performed at [facility];[address] [place] [address];[place] [address] MRSA PCR | | | NEGATIVE Testing performed at | | | [address];[place] [address] | | + + + + +---------+ [...] | | | Fingerstick | performed at [facility];[address] | | LAB | | | | [address];[place], [place] | | | | | | [address] | | | | + + + [...]
--- OUTSIDE RECORDS SUMMARY | ~2019-09-28 | XMS | Encounter Summary ---
Demographics + + + | Address | [address] | | | [place] [address] | + + + | Home Phone [...] Team Providers + +------+ + | Care Anesthesiologists' Assistant Name | Role | Phone | [...] low | J Luis, | [address] | | | | | back pain | Shay Mukherjee MD | [place], | | | | | Procedures | [address] | [place] | | | | | MRI Lumbar | [place] | [address] | | | | | Spine wo | [place], [place] | Phone: | | | | | Contrast | [address] | [phone] | | | | | | Phone: | Fax: | | | | | | [phone] | [phone] | | | | | | Fax: | | | | | | | [phone] | | +--------+--------+ + + + + [...] + + | 08/16/ | Office | [facility] | Shay Dietz | Chronic low back | | 2012 | Visit | PHYSIATRY [address], [address] | pain (Primary Dx); | | | | [address] [place], | [address] [place], [place] | DISC DISEASE, | | | | [place] [address] | [address] | LUMBAR; Facet | | | | [phone] | | arthritis of lumbar | | [...] [place] | | | | | | [address] | | | | | | | [...]
--- OUTSIDE RECORDS SUMMARY | ~2019-09-28 | XMS | Encounter Summary ---
Demographics + + + | Address | [address] | | | [place] [address] | + + + | Home Phone [...] Providers + +------+ + | Care Manager Endoscopy Name | Role | Phone | + [...] [address] | Dx) | | | | [place], | [address] [place] | | | | | [place] [address] | [address] | | | | | [phone] | | | +--------+ + + + [...] | | | | | | [facility] [place] | | | | | | [address] | | | | | | | | +--------+---------+ + + + documented as of this encounter Visit Diagnoses + + | Diagnosis | + + | Back pain - Primary Backache, unspecified | + + documented in this encounter"
--- OUTSIDE RECORDS SUMMARY | ~2019-09-28 | XMS | Encounter Summary ---
Demographics + + + | Address | [address] | | | [place] [address] | + + + | Home Phone [...] Author + + + | Author | [facility] | + + + | Organization | [facility] | + + + | Address | Unknown | + + + | Phone | Unavailable | + + + Support + + +---------+ + | Name | Relationship | Address | Phone | + + +---------+ + | Royce Menchaca | ECON | Unknown | | + + +---------+ + Care Team Providers + +------+ + | Care International Student Advisor Name | Role | Phone | + +------+ + | Miquel Calhoun MD | PCP | | + +------+ + Encounter Details +--------+ + + + + | Date | Type | Department | Care Team | Description | +--------+ + + + + | 11/12/ | Telephone | [facility] | Khushbu Cortez, | | | 2013 | | [facility] | [employer] [place], [place] | | | | | [address] | [address] | | | | | [address] | | | | | | [place] | | | | | | [place], [place] | | | | | | [address] | | | | | | [phone] | | | +--------+ + + + [...]
--- OUTSIDE RECORDS SUMMARY | ~2019-09-28 | XMS | Encounter Summary ---
Demographics + + + | Address | [address] | | | [place] [address] | + + + | Home Phone [...] + +------+ + | Care Income Tax Preparer Name | Role | Phone | + +------+ + | No, Physician | PCP | Unavailable | + +------+ + Encounter Details +--------+ + + + + | Date | Type | Department | Care Team | Description | +--------+ + + + + | 01/08/ | Hospital | [facility] | Shay Dietz | Lumbar radiculopathy | | 2013 | Encounter | MED CTR XRAY [address] | [address] | | | | | [place] | [facility] [place] | | | | | [place] [address] | [address] | | | | | [phone] | | | | | | | Quality Assurance Director, [place] | | +--------+ + + + [...] [place] | | | | | | [address] | | | | | | | [...] radiculopathy ICD-9 Code 724.4 Ms. Sheikh | [facility] | | Joanne presents to the fluoroscopy suite for a [facility] | | fluoroscopically-guided left L5-S1 [...] [address] | [place] | [phone] | | [facility] | | [address] | | | - IMAGING | | [...]
--- OUTSIDE RECORDS SUMMARY | ~2019-09-28 | XMS | Encounter Summary ---
Demographics + + + | Address | [address] | | | [place] [address] | + + + | Home Phone [...] + +------+ + | Care Insurance Verification Representative Name | Role | Phone | + +------+ + | Miquel Calhoun MD | PCP | | + +------+ + Encounter Details +--------+ + + + + | Date | Type | Department | Care Team | Description | +--------+ + + + + | 11/29/ | Documentati | [facility] | Khushbu Cortez, | | | 2013 | on | [facility] | ACID ADJUSTER [place], [place] | | | | | [address] | [address] | | | | | [address] | | | | | | A[place]ind [place] | | | | | | [facility] [place] | | | | | | [address] | | | | | | [phone] | | | +--------+ + + + [...]
--- OUTSIDE RECORDS SUMMARY | ~2019-09-28 | XMS | Encounter Summary ---
Demographics + + + | Address | [address] | | | [place] [address] | + + + | Home Phone [...] Providers + +------+ + | Care Project Reservoir Engineer Name | Role | Phone | [...] POPLAR | Dx) | | | | [place], | [address] [place] | | | | | [place] [address] | [address] | | | | | [phone] | | | +--------+ + + + [...] | | | | | | [facility] [place] | | | | | | [address] | | | | | | | | +--------+---------+ + + + documented as of this encounter Visit Diagnoses + + | Diagnosis | + + | Back pain - Primary Backache, unspecified | + + documented in this encounter"
--- OUTSIDE RECORDS SUMMARY | ~2019-09-28 | XMS | Encounter Summary ---
Demographics + + + | Address | [address] | | | [place] [address] | + + + | Home Phone [...] Team Providers + +------+ + | Care Ecommerce Marketing Manager Name | Role | Phone [...] + + | 08/31/ | Telephone | [facility] | Denys Sibley, | Back Pain (Severe | | 2019 | | [facility] | DO [address] | pain) | | | | [address] [place], [place] | | | | | [address] | [address] | | | | | [place], [place] | | | | | | [address] | | | | | | [phone] | | | +--------+ + + + [...] [place] | | | | | | [address] | | | | | | | | +--------+---------+ + + + documented as of this encounter Visit Diagnoses Not on filedocumented in this encounter"
--- OUTSIDE RECORDS SUMMARY | ~2019-09-28 | XMS | Encounter Summary ---
Demographics + + + | Address | [address] | | | [place] [address] | + + + | Home Phone [...] Team Providers + +------+ + | Care Personal Lines Insurance Agent Name | Role | Phone | + +------+ + | Romy De La Paz MD | PCP | | + +------+ + Encounter Details +--------+ + + + + | Date | Type | Department | Care Team | Description | +--------+ + + + + | 07/17/ | Prep for | [facility] | Maykel Hutchins MD | Chronic low back | | 2019 | Procedure | [facility] | [address] | pain with sciatica, | | | | ORTHOPEDIC SPINE | [facility], | sciatica laterality | | | | [address] [place] | [place] [address] | unspecified, | | | | [facility] [place] | [phone] | unspecified back | | | | [address] | | pain laterality | | | | [phone] | | (Primary Dx); Right | | [...] [place] | | | | | | [address] | | | | | | | [...]
--- OUTSIDE RECORDS SUMMARY | ~2019-09-28 | XMS | Encounter Summary ---
Demographics + + + | Address | [address] | | | [place] [address] | + + + | Home Phone [...] Providers + +------+ + | Care Outbound Telemarketer Name | Role | Phone | + [...] COURTNEY Andrews | | | | | [place], [place] | [place], [place] | | | | | [address] | [address] | | | | | [phone] | [phone] | | | | | | | [...] | + + + + + | [facility] DEPARTMENT [facility] | [address] [facility] | [place] [address] | | | PATHOLOGY | [address] | | | + + + + + | [facility] DEPARTMENT [facility] | [facility] | [place] [address] | | | PATHOLOGY | [address] [...] | + + + + + | [facility] DEPARTMENT OF | [address] | [place] [address] | | | PATHOLOGY | [address] | | | + + + + + | [facility] | [address] | [place] [address] | | | PATHOLOGY | [address] [...] | + + + + + | [facility] DEPARTMENT OF | [address] | [place] [address] | | | PATHOLOGY | [address] | | | + + + + + | [facility] | [address] | [place] [address] | | | PATHOLOGY | [address] [...] DEPARTMENT OF | [address] | [place] [address] | | | PATHOLOGY | [address] | | | + + + + + | [facility] DEPARTMENT OF | [address] | [place] [address] | | | PATHOLOGY | [address] [...] | + + + + + | [facility] DEPARTMENT [facility] | [address] [facility] | [place] [address] | | | PATHOLOGY | [address] | | | + + + + + | [facility]MENT [facility] | [address] [facility] | [place] [address] | | | PATHOLOGY | [address] [...] + + + + + | [facility] | [address] [facility] | [place] [address] | | | PATHOLOGY | [address] | | | + + + + + | [facility] | [facility] | [place] [address] | | | PATHOLOGY | [address] | | | + + + + + PHOSPHORUS, PLASMA (06/30/2006 7:00 AM PDT) + +-------+ + + + | Component | Value | Ref Range | Performed | Pathologist | | | | | At | Signature | + +-------+ + + + | PHOSPHORUS, | 3.8 | 2.4 - 4.7 mg/dL | [facility] | | | PLASMA | | | [...] | + + + + + | [facility] DEPARTMENT OF | [address] | [place] [address] | | | PATHOLOGY | [address] | | | + + + + + | [facility] DEPARTMENT OF | [address] | [place] [address] | | | PATHOLOGY | [address] [...] + + | [facility] DEPARTMENT OF | [address] | [place], [place] [address] | | | PATHOLOGY | [address] | | | + + + + + | [facility] DEPARTMENT OF | [address] | [place] [address] | | | PATHOLOGY | [address] | | | + + + + + CREATININE, URINE (06/30/2006 4:45 AM PDT) + +-------+ + + + | Component | Value | Ref Range | Performed | Pathologist | | | | | At | Signature | + +-------+ + + + | CREATININE | 40.1 | mg/dL | [facility] | | | CON[facility] | | [...] | + + + + + | [facility] DEPARTMENT OF | [address] | [place] [address] | | | PATHOLOGY | [address] | | | + + + + + | [facility] | [address] | [place] [address] | | | PATHOLOGY | [address] [...] | + + + + + | [facility] DEPARTMENT OF | [address] | [place] [address] | | | PATHOLOGY | [address] | | | + + + + + | [facility] DE[facility]MENT [facility] | [address] [facility] | [place] [address] | | | PATHOLOGY | [address] [...] + + | [facility] DE[facility]MENT [facility] | [address] | [place] [address] | | | PATHOLOGY | [address] | | | + + + + + | [facility] DEPARTMENT OF | [address] | [place] [address] | | | PATHOLOGY | [address] [...] + + + + + | [facility] | [address] [facility] | [place] [address] | | | PATHOLOGY | [address] | | | + + + + + | [facility] | [address] [place] [address] | [place] [address] | | | PATHOLOGY | [address] [...] [facility] DEPARTMENT [facility] | [address] [facility] | [place] [address] | | | PATHOLOGY | [address] | | | + + + + + | [facility] DEPARTMENT OF | [address] [facility] | [place] [address] | | | PATHOLOGY | [address] [...] DEPARTMENT OF | [address] | [place] [address] | | | PATHOLOGY | [address] | | | + + + + + | [facility] DEPARTMENT OF | [address] | [place] [address] | | | PATHOLOGY | [address] | | | + + + + + PHOSPHORUS, PLASMA (06/29/2006 5:45 PM PDT) + +-------+ + + + | Component | Value | Ref Range | Performed | Pathologist | | | | | At | Signature | + +-------+ + + + | PHOSPHORUS, | 3.6 | 2.4 - 4.7 mg/dL | [facility] | | | PLASMA | | | [...] | + + + + + | [facility] DEPARTMENT | [address] | [place] [address] | | | PATHOLOGY | [address] | | | + + + + + | [facility] | [address] | [place] [address] | | | PATHOLOGY | [address] [...] | | | | Test performed by [facility] | | | | [...] [facility] | [address] | [place], [place] | | | UNIV P[facility] - INTFC | | [address] | | + + + + + [...] + + + + + | [facility] | [address] [facility] | [place] [address] | | | PATHOLOGY | [address] | | | + + + + + | [facility] | [address] [facility] | [place] [address] | | | PATHOLOGY | [address] [...] DEPARTMENT OF | [address] | [place] [address] | | | PATHOLOGY | [address] | | | + + + + + | [facility] | [address] | [place] [address] | | | PATHOLOGY | [address] [...] [facility] | [address] | [place], [place] | | | UN[facility] PTH - INTFC | | [address] | | + + + + + [...] | | | | | performed at [facility] | | | | | | [facility] | | | | | | Laboratory. | | | | + + + + + + + + | Specimen | + + | | + + + + + + + | Performing | Address | City/State/Zipcode | Phone Number | | Organization | | | | + + + + + | [facility] | [address] | [place] [address] | | | LAB-MICRO | | | [...] DEPARTMENT OF | [address] | [place] [address] | | | PATHOLOGY | [address] | | | + + + + + | [facility] DEPARTMENT OF | [address] | [place] [address] | | | PATHOLOGY | [address] [...] | + + + + + | [facility] | [address] | [place] [address] | | | PATHOLOGY | [address] | | | + + + + + | [facility] | [address] [place] [address] | [place] [address] | | | PATHOLOGY | [address] [...] + + | [facility] DEPARTMENT OF | [address] | [place] [address] | | | PATHOLOGY | [address] | | | + + + + + | [facility] DEPARTMENT OF | [address] | [place] [address] | | | PATHOLOGY | [address] [...] | + + + + + | [facility] DEPARTMENT OF | [facility] | [place] [address] | | | PATHOLOGY | [address] | | | + + + + + | [facility] DEPARTMENT [facility] | [facility] | [place] [address] | | | PATHOLOGY | [address] [...] | + + + + + | [facility] DEPARTMENT OF | [address] | [place] [address] | | | PATHOLOGY | [address] | | | + + + + + | [facility]MENT [facility] | [address] | [place] [address] | | | PATHOLOGY | [address] | | | + + + + + PHOSPHORUS, PLASMA (06/29/2006 6:55 AM PDT) + +---------+ + + + | Component | Value | Ref Range | Performed | Pathologist | | | | | At | Signature | + +---------+ + + + | PHOSPHORUS, | 2.2 (L) | 2.4 - 4.7 mg/dL | [facility] | | | PLASMA | | | [...] | + + + + + | [facility] DEPARTMENT OF | [facility] | [place] [address] | | | PATHOLOGY | [address] | | | + + + + + | [facility] DEPARTMENT OF | [address] | [place] [address] | | | PATHOLOGY | [address] [...] | + + + + + | [facility] DEPARTMENT OF | [address] [facility] | [place] [address] | | | PATHOLOGY | [address] | | | + + + + + | [facility] DEPARTMENT OF | [address] [facility] | [place] [address] | | | PATHOLOGY | [address] [...] DEPARTMENT OF | [address] | [place] [address] | | | PATHOLOGY | [address] | | | + + + + + | [facility] DEPARTMENT OF | [address] | [place] [address] | | | PATHOLOGY | [address] [...] | + + + + + | [facility] DEPARTMENT OF | [address] [facility] | [place] [address] | | | PATHOLOGY | [address] | | | + + + + + | [facility] | [address] [facility] | [place] [address] | | | PATHOLOGY | [address] [...] DEPARTMENT OF | [address] | [place] [address] | | | PATHOLOGY | [address] | | | + + + + + | [facility] DEPARTMENT OF | [address] | [place] [address] | | | PATHOLOGY | [address] [...] | + + + + + | [facility] DEPARTMENT OF | [address] | [place] [address] | | | PATHOLOGY | [address] | | | + + + + + | [facility]MENT OF | [address] | [place] [address] | | | PATHOLOGY | [address] | | | + + + + + MAGNESIUM, PLASMA (06/28/2006 6:20 AM PDT) + +-------+ + + + | Component | Value | Ref Range | Performed | Pathologist | | | | | At | Signature | + +-------+ + + + | MAGNESIUM,P | 2.1 | 1.8 - 2.5 mg/dL | [facility] | | | LASMA | | | [...] | + + + + + | [facility] DEPARTMENT OF | [facility] | [place] [address] | | | PATHOLOGY | [address] | | | + + + + + | [facility] DEPARTMENT OF | [facility] | [place] [address] | | | PATHOLOGY | [address] [...] | + + + + + | [facility] DEPARTMENT OF | [address] [facility] | [place] [address] | | | PATHOLOGY | [address] | | | + + + + + | [facility] | [address] [facility] | [place] [address] | | | PATHOLOGY | [address] [...] + + + + + | [facility] | [address] [facility] | [place] [address] | | | PATHOLOGY | [address] | | | + + + + + | [facility] | [address] [facility] | [place] [address] | | | PATHOLOGY | [address] [...] | + + + + + | [facility] DEPARTMENT OF | [address] | [place] [address] | | | PATHOLOGY | [address] | | | + + + + + | [facility] OF | [address] | [place] [address] | | | PATHOLOGY | [address] [...] + + + + + | [facility] | [address] [facility] | [place] [address] | | | PATHOLOGY | [address] | | | + + + + + | [facility] | [facility] | [place] [address] | | | PATHOLOGY | [address] [...] | + + + + + | [facility] DEPARTMENT OF | [address] | [place] [address] | | | PATHOLOGY | [address] | | | + + + + + | [facility] DEPARTMENT OF | [address] | [place] [address] | | | PATHOLOGY | [address] [...] | + + + + + | [facility] DEPARTMENT OF | [facility] | [place] [address] | | | PATHOLOGY | [address] | | | + + + + + | [facility] DEPARTMENT OF | [address] | [place] [address] | | | PATHOLOGY | [address] [...] | + + + + + | [facility] DEPARTMENT OF | [address] | [place] [address] | | | PATHOLOGY | [address] | | | + + + + + | [facility] DEPARTMENT OF | [address] | [place] [address] | | | PATHOLOGY | [address] [...] | + + + + + | [facility] DEPARTMENT OF | [address] | [place] [address] | | | PATHOLOGY | [address] | | | + + + + + | [facility] | [address] | [place] [address] | | | PATHOLOGY | [address] [...] + + + | Test performed at [facility] | | + + + + + + + + | Performing | Address | City/State/Zipcode | Phone Number | | Organization | | | | + + + + + | [facility] | [address] | [place] [address] | | | LABORATORY | | | [...] + + + | Test performed at [facility] | | + + + + + + + + | Performing | Address | City/State/Zipcode | Phone Number | | Organization | | | | + + + + + | [facility] | [address] | [place] [address] | | | LABORATORY | | | | + + + + + IOD-ORGANIC BASE CONFIRM (06/27/2006 11:55 AM PDT) + + | Specimen | + + | | + + + + + | Narrative | Performed At | + + + | Test performed at [facility] | [facility] | | | DEPARTMENT OF | | | PATHOLOGY | + + + + + + + + | Performing | Address | City/State/Zipcode | Phone Number | | Organization | | | | + + + + + | [facility] | [address] [facility] | [place] [address] | | | PATHOLOGY | [address] | | | + + + + + | [facility] | [address] [facility] | [place] [address] | | | PATHOLOGY | [address] [...] | | | | | performed at [facility] | | | | | | [facility] | | | | | | Laboratory. | | | | + + + + + + + + | Specimen | + + | | + + + + + + + | Performing | Address | City/State/Zipcode | Phone Number | | Organization | | | | + + + + + | [facility] | [address] | [place] [address] | | | LAB-MICRO | | | [...] | + + + + + | [facility] | [address] | [place] [address] | | | LABORATORY | | | [...] DEPARTMENT OF | [address] | [place] [address] | | | PATHOLOGY | [address] | | | + + + + + | [facility] DEPARTMENT OF | [address] | [place] [address] | | | PATHOLOGY | [address] [...] + + + + + | [facility] | [address] [facility] | [place] [address] | | | PATHOLOGY | [address] | | | + + + + + | [facility] | [address] [place] [address] | [place] [address] | | | PATHOLOGY | [address] [...] | + + + + + | [facility] DEPARTMENT OF | [address] | [place] [address] | | | PATHOLOGY | [address] | | | + + + + + | [facility] DEPARTMENT OF | [address] | [place] [address] | | | PATHOLOGY | [address] [...] 1.19Comment: | 0.90 - 1.20 INR | [facility] | | | | PT INR Therapeutic [...] + + + + + | [facility] | [address] | [place] [address] | | | PATHOLOGY | [address] | | | + + + + + | [facility] DEPARTMENT | [address] | [place] [address] | | | PATHOLOGY | [address] [...] | + + + + + | [facility] DEPARTMENT OF | [address] [facility] | [place] [address] | | | PATHOLOGY | [address] | | | + + + + + | [facility] DE[facility] | [address] | [place] [address] | | | PATHOLOGY | [address] [...] DEPARTMENT OF | [address] | [place] [address] | | | PATHOLOGY | [address] | | | + + + + + | [facility] DEPARTMENT OF | [address] | [facility] [place] [address] | | | PATHOLOGY | [address] [...] DEPARTMENT OF | [address] | [place] [address] | | | PATHOLOGY | [address] | | | + + + + + | [facility] | [address] | [place] [address] | | | PATHOLOGY | [address] [...] | | | | | performed at [facility] | | | | | | [facility] | | | | | | Laboratory. | | | | + + + + + + + + | Specimen | + + | | + + + + + + + | Performing | Address | City/State/Zipcode | Phone Number | | Organization | | | | + + + + + | [facility] | [address] | [place] [address] | | | LAB-MICRO | | | [...] | | | | | performed at [facility] | | | | | | [facility] | | | | | | Laboratory. | | | | + + + + + + + + | Specimen | + + | | + + + + + + + | Performing | Address | City/State/Zipcode | Phone Number | | Organization | | | | + + + + + | [facility] | [address] | [place] [address] | | | LAB-MICRO | | | [...] DEPARTMENT OF | [address] | [place] [address] | | | PATHOLOGY | [address] | | | + + + + + | [facility] | [address] | [place] [address] | | | PATHOLOGY | [address] [...] | | | | AG, SERUM | [facility] | | | | | | Laboratories. | | | | + + + + + + + + | Specimen | + + | | + + + + + + + | Performing | Address | City/State/Zipcode | Phone Number | | Organization | | | | + + + + + | [facility] | [address] | [place] [address] | | | LABORATORY | | | [...] | | | | [facility]ADA | [facility] | | | | | | Laboratories. | | | | + + + + + + + + | Specimen | + + | | + + + + + + + | Performing | Address | City/State/Zipcode | Phone Number | | Organization | | | | + + + + + | [facility] | [address] | [place] [address] | | | LABORATORY | | | [...] | + + + + + | [facility] | [address] | [place] [address] | | | LABORATORY | | | [...] | | | | | performed at [facility] | | | | | | [facility] | | | | | | Laboratory. | | | | + + + + + + + + | Specimen | + + | | + + + + + + + | Performing | Address | City/State/Zipcode | Phone Number | | Organization | | | | + + + + + | [facility] | [address] | [place] [address] | | | LAB-MICRO | | | [...] + + + + + | [facility] | [address] [facility] | [place] [address] | | | PATHOLOGY | [address] | | | + + + + + | [facility] | [facility] | [place] [address] | | | PATHOLOGY | [address] [...] | + + + + + | [facility] DEPARTMENT OF | [address] | [place] [address] | | | PATHOLOGY | [address] | | | + + + + + | [facility] DEPARTMENT OF | [address] | [place] [address] | | | PATHOLOGY | [address] [...] | + + + + + | [facility] DEPARTMENT OF | [address] [facility] | [place] [address] | | | PATHOLOGY | [address] | | | + + + + + | [facility] DEPARTMENT OF | [address] [place] [address] | [place] [address] | | | PATHOLOGY | [address] [...] | + + + + + | [facility] DEPARTMENT OF | [address] | [place] [address] | | | PATHOLOGY | [address] | | | + + + + + | [facility] DEPARTMENT OF | [address] | [place] [address] | | | PATHOLOGY | [address] [...] + + + + + | [facility] | [address] | [place] [address] | | | PATHOLOGY | [address] | | | + + + + + | [facility] DEPARTMENT OF | [address] | [place] [address] | | | PATHOLOGY | [address] [...] | + + + + + | [facility] DEPARTMENT OF | [address] | [place] [address] | | | PATHOLOGY | [address] | | | + + + + + | [facility] DEPARTMENT OF | [address] | [place] [address] | | | PATHOLOGY | [address] [...] | + + + + + | [facility] DEPARTMENT OF | [address] [facility] | [place] [address] | | | PATHOLOGY | [address] | | | + + + + + | [facility] DEPARTMENT OF | [address] [facility] | [place] [address] | | | PATHOLOGY | [address] [...] 247 | 150 - 400 K/cu | [facility] | | | COUNT | | mm [...] | + + + + + | [facility] DEPARTMENT OF | [facility] | [place] [address] | | | PATHOLOGY | [address] | | | + + + + + | [facility] DEPARTMENT OF | [address] | [place] [address] | | | PATHOLOGY | [address] [...] + + + + + | [facility] | [address] [facility] | [place] [address] | | | PATHOLOGY | [address] | | | + + + + + | [facility] | [address] [facility] | [place] [address] | | | PATHOLOGY | [address] [...] | | | | | | the [facility] LabManual: | | | | | | [email or web address] | | | | | [email or web address] [...] + + + + + | [facility] | [address] [facility] | [place] [address] | | | PATHOLOGY | [address] | | | + + + + + | [facility] | [address] [facility] | [place] [address] | | | PATHOLOGY | [address] [...] + + + + + | [facility] | [address] [facility] | [place] [address] | | | PATHOLOGY | [address] | | | + + + + + | [facility] | [address] [facility] | [place] [address] | | | PATHOLOGY | [address] [...] | + + + + + | [facility] DEPARTMENT OF | [facility] | [place] [address] | | | PATHOLOGY | [address] | | | + + + + + | [facility] DEPARTMENT OF | [facility] | [place] [address] | | | PATHOLOGY | [address] [...] | + + + + + | [facility] DEPARTMENT OF | [address] | [place] [address] | | | PATHOLOGY | [address] | | | + + + + + | [facility] OF | [address] | [place] [address] | | | PATHOLOGY | [address] [...] + + + + + | [facility] | [address] | [place] [address] | | | PATHOLOGY | [address] | | | + + + + + | [facility] DEPARTMENT OF | [address] | [place] [address] | | | PATHOLOGY | [address] [...] | 32.0Comment: | 26.0 - 36.0 | [facility] | | | | APTT Therapeutic Range [...] + + + + + | [facility] | [address] [facility] | [place] [address] | | | PATHOLOGY | [address] | | | + + + + + | [facility] | [facility] [facility] | [place] [address] | | | PATHOLOGY | [address] [...] DEPARTMENT OF | [address] | [place] [address] | | | PATHOLOGY | [address] | | | + + + + + | [facility] DEPARTMENT | [address] | [place] [address] | | | PATHOLOGY | [address] [...] + + + + + | [facility] | [address] | [place] [address] | | | PATHOLOGY | [address] | | | + + + + + | [facility] | [facility] | [place] [address] | | | PATHOLOGY | [address] [...] DEPARTMENT OF | [address] | [place] [address] | | | PATHOLOGY | [address] | | | + + + + + | [facility] DEPARTMENT | [address] | [place], [place] [address] | | | PATHOLOGY | [address] [...] | + + + + + | [facility] DEPARTMENT OF | [address] | [place] [address] | | | PATHOLOGY | [address] | | | + + + + + | [facility] DEPARTMENT OF | [address] | [place] [address] | | | PATHOLOGY | [address] [...] + + + + + | [facility] | [address] | [place] [address] | | | PATHOLOGY | [address] | | | + + + + + | [facility] | [address] | [place] [address] | | | PATHOLOGY | [address] [...] + + + + + | [facility] | [address] [facility] | [place] [address] | | | PATHOLOGY | [address] | | | + + + + + | [facility] | [address] [place] [address] | [place] [address] | | | PATHOLOGY | [address] [...] + + + + + | [facility] | [address] [facility] | [place] [address] | | | PATHOLOGY | [address] | | | + + + + + | [facility] [facility] | [address] [facility] | [place] [address] | | | PATHOLOGY | JORGE LUIS JIM | | | + + + + + documented in this encounter Visit Diagnoses Not on filedocumented in this encounter"
--- OUTSIDE RECORDS SUMMARY | ~2019-09-28 | XMS | Encounter Summary ---
Demographics + + + | Address | [address] | | | [place] [address] | + + + | Home Phone [...] Providers + +------+ + | Care Maintenance Groundman Name | Role | Phone | + [...] + + | 04/25/ | Emergency | [facility] | Billy Romo, | Concussion, without | | 2016 | | HOSPITAL EMERGENCY | [address] [facility] | LOC, initial | | | | [place] [address] MEDICAL | Cell>Point[employer], | encounter (Primary | | | | [place] [employer], [place] | [place] [address] | Dx); Cervical | | | | [address] | [phone] | strain, acute, | | | | [phone] | | initial encounter | +--------+ + [...] sent through Care Everywhere.CERVICAL STRAIN , UNDERSTANDING (BELGIAN)CONCUSSION, AFTER (BELGIAN)CONCUSSION, COPING WITH (BELGIAN)manish disla in this encounter Medications at Time [...] [place] | | | | | | [address] | | | | | | | [...] L?MRN: | | | | | | [id number] | | | [id number] | | | his | | | [...] | | | St. | | | Stewart | | | y H. | | [...] | | | St. | | | [facility] | | | M.C. | | | [...] | | | St. | | | Stewart | | | y | | | [...] | | | n, | | | PLANT OPERATOR/SHIFT SUPERVISOR, | | | PLANT OPERATOR/SHIFT SUPERVISOR | | | Primar | | | [...] Performed At | + + + | [address] | | | [place], [place] [address] | | | NAME: KORI HARMON DATE: 04/25/2017 | | | : 1945 PT GENDER: F ROOM: ER PHYSICIAN: | | | BILLY ROMO PID#: [id number] CC TO: MR#: | | | PROCEDURE: [...] Rad Results In - 04/27/2017 9:10 AM [facility] | | [address] [facility] | | [place], [place] [address] | | | | | | NAME: KORI HARMON DATE: 04/25/2017 | | : 1945 PT GENDER: F ROOM: ER | | PHYSICIAN: BILLY ROMO PID#: [id number] | | CC TO: MR#: | | [...] Performed At | + + + | [address] | | | [place], [place] [address] | | | NAME: KORI HARMON DATE: 04/25/2017 | | | : 1945 PT GENDER: F ROOM: ER PHYSICIAN: | | | BILLY ROMO PID#: [id number] CC TO: MR#: | | | PROCEDURE: [...] Results In - 04/27/2017 9:10 AM PDT [facility] | | [address] [place] [address] | | [place], [place] [address] | | | | | | NAME: KORI HARMON DATE: 04/25/2017 | | : 1945 PT GENDER: F ROOM: ER | | PHYSICIAN: BILLY ROMO PID#: [id number] | | CC TO: MR#: | | [...] | + + + + + | [facility] | [address] | [place] [address] | [phone] | | HOSPITAL LABORATORY | | | [...] 99 | 70 - 110 mg/dL | [facility] | | | | | [facility] | | | | | | [facility]OSPITAL | | | | | | LABORATORY | | + + + + + + | BUN | 21 | 5 - 26 mg/dL | [facility] | | | | | [facility] | | | | | | [facility]OSPITAL | | | | | | LABORATORY | | + + + + + + | Creatinine | 0.83 | >.60-<1.30 | [facility] | | | | | mg/dL | [facility]ITY | | | | | | HOSPITAL | | | | | | LABORATORY | | + + + + + + | eGFR if not | >60Comment: GLOMERULAR | >=60 | [facility] | | | | FILTRATION | mL/min/1.73m2 | [facility] | | | NAMIBIAN | RATE,ESTIMATED | | HOSPITAL | | | | mL/min/1.70t4Fxja than | | LABORATORY | | | [...] | + + + + + | [facility] | [address] | [place] [address] | [phone] | | HOSPITAL LABORATORY | | | | + + + + + CBC with Differential (04/25/2017 7:20 PM PDT) + + + + + + | Component | Value | Ref Range | Performed | Pathologist | | | | | At | Signature | + + + + + + | WBC | 6.1 | >4.5-<11.0 K/uL | [facility] | | | | | | COMMUNITY [...] + + + + | [facility] | [address] | [place] [address] | [phone] | | HOSPITAL LABORATORY | | | | + + + + + documented in this encounter Visit Diagnoses + + | Diagnosis | + + | Concussion, without LOC, initial encounter - Primary | + + | Cervical strain, acute, initial encounter | + + documented in this encounter
--- OUTSIDE RECORDS SUMMARY | ~2019-09-28 | XMS | Encounter Summary ---
Demographics + + + | Address | [address] | | | [place] [address] | + + + | Home Phone [...] Team Providers + +------+ + | Care First Leveler Name | Role | Phone | + [...] [address] | | | | | [place], | [place], [place] | | | | | [place] [address] | [address] | | | | | [phone] | | | +--------+ + + + [...] [place] | | | | | | [address] | | | | | | | | +--------+---------+ + + + documented as of this encounter Visit Diagnoses Not on filedocumented in this encounter"
--- OUTSIDE RECORDS SUMMARY | ~2019-09-28 | XMS | Encounter Summary ---
Demographics + + + | Address | [address] | | | [place] [address] | + + + | Home Phone [...] Providers + +------+ + | Care Fire Pot Operator Name | Role | Phone | + +------+ + | Miquel Calhoun MD | PCP | | + +------+ + Encounter Details +--------+ + + + + | Date | Type | Department | Care Team | Description | +--------+ + + + + | 10/18/ | Hospital | [facility] | Shay Dietz | | | 2012 | Encounter | MED CTR XRAY [address] | [address], [address] | | | | | [place] | [address] [facility] [place], [place] | | | | | [place] [address] | [address] | | | | | [phone] | | | +--------+ + + + [...] [place] | | | | | | [address] | | | | | | | [...] At | + + + | [facility] Diagnostic Imaging | [facility] | | Department [address] [facility], [place] | [facility] | | [ rep [address]] [ rep [facility] | | st zip] Signed | - IMAGING | | | | | Patient Name: KORI HARMON | | | Physician: [place] : 1945 Age: 68 Sex: F Unit | | | #: [id number] Exam Date: 10/18/13 Location: | | | IMG.INV Report #: [id number] Page: | | | %(RAD)RES..mtdd.print.filter("pg") of %(RAD) | | | RES..mtdd.print.filter("tpg") | | | | | | Accession Number: [id number] | | | LUMBAR MEDIAL BRANCH BLOCKS, [...] Transcribed Date/Time: | | | 10/18/2013 19:14 Flow Manager: | | | <<Signature on File>> | | | Shay Mukherjee | | | MD J Luis10/22/13 0756 <Electronically signed by Shay Mukherjee | | | J Luis SALGADO> Shay Dietz MD 10/18/13 8191 | | | Flow Manager: Yudelka Jlvvhzbdgfskm01/19/13 8077 | | | PROVIDER,UNKNOWN | | + + + + + + + + | Performing | Address | City/State/Zipcode | Phone Number | | Organization | | | | + + + + + | [facility] | [address] | [place] | [phone] | | [facility] | | [address] | | | - IMAGING | | | | + + + + + documented in this encounter Visit Diagnoses Not on filedocumented in this encounter
--- OUTSIDE RECORDS SUMMARY | ~2019-09-28 | XMS | Encounter Summary ---
Demographics + + + | Address | [address] | | | [place] [address] | + + + | Home Phone [...] Team Providers + +------+ + | Care Snipper Name | Role | Phone | + [...] [address] | | | | | [facility] [address] | [address] [facility] [address] STATION, | | | 08/07/ | | 8th [place], [place] | [place] [address] | | | 2004 | | [address] | [phone] | | | | | [phone] | | | +--------+ + + + [...] [place] | | | | | | [address] | | | | | | | | +--------+---------+ + + + documented as of this encounter Visit Diagnoses Not on filedocumented in this encounter"
--- OUTSIDE RECORDS SUMMARY | ~2019-09-28 | XMS | Encounter Summary ---
Demographics + + + | Address | [address] | | | [place] [address] | + + + | Home Phone | | + + + | Preferred Language | Unknown | + + + | Marital Status | Single | + + + | Mandaen Affiliation | NON | + + + [...] Team Providers + +------+ + | Care Hardware Technician Name | Role | Phone | [...] Management | | 2016 | | at [facility] [address] | [address] | (follow up BPs) | | | | Abbe Soto Mailcode: | [address] [place], | | | | | [address] | [place] [address] | | | | | Health and Healing, | [phone] | | | | | [place] [address] [facility] | | | | | | floor [place], [place] | | | | | | [address] | | | | | | [phone] | | | +--------+ + + + [...]
--- OUTSIDE RECORDS SUMMARY | ~2019-09-28 | XMS | Encounter Summary ---
Demographics + + + | Address | [address] | | | [place] [address] | + + + | Home Phone [...] Team Providers + +------+ + | Care Adoption Manager Name | Role | Phone | + +------+ + | Concepción Gallardo NP | PCP | | + +------+ + Encounter Details +--------+ + + + + | Date | Type | Department | Care Team | Description | +--------+ + + + + | 08/05/ | Hospital | [facility] | Shirahumble, | Foraminal stenosis | | 2013 | Encounter | MED CTR XRAY [address] | [address] | of lumbar region - | | | | [place] | [place], | left L5-S1; Left | | | | [place] [address] | [place] [address] | lumbar | | | | [phone] | [phone] | radiculopathy; DDD | | | | | | (degenerative disc | | | | | [employer], [place]s | disease), lumbar; | | | [...] [place] | | | | | | [address] | | | | | | | [...] fluoroscopy suite for a [facility] | | fluoroscopically-guided left L5-S1 transforaminal [...] | + + + + + | [facility] | [address] | [place] | [phone] | | [facility] | | [address] | | | - IMAGING | | [...]
--- OUTSIDE RECORDS SUMMARY | ~2019-09-28 | XMS | Encounter Summary ---
Demographics + + + | Address | [address] | | | [place] [address] | + + + | Home Phone [...] Team Providers + +------+ + | Care Matrix Bath Operator Name | Role | Phone | + +------+ + | Wendi Aiken | PCP | | + +------+ + Encounter Details +--------+ + + + + | Date | Type | Department | Care Team | Description | +--------+ + + + + | 12/28/ | Hospital | [facility] | Conversion | Diagnosis unknown | | 2018 | Encounter | CONVERSION [address] | Transaction, | | | | | [address] | Provider Unknown | | | | | [place], [place] | [phone] | | | | | [address] | | | | | | [phone] | | | +--------+ + + + [...] [place] | | | | | | [address] | | | | | | | [...]
--- OUTSIDE RECORDS SUMMARY | ~2019-09-28 | XMS | Encounter Summary ---
Demographics + + + | Address | [address] | | | [place] [address] | + + + | Home Phone [...] Team Providers + +------+ + | Care Psychological Operations Name | Role | Phone | + +------+ + | Wendi Aiken | PCP | | + +------+ + Encounter Details +--------+ + + + + | Date | Type | Department | Care Team | Description | +--------+ + + + + | 04/06/ | Hospital | [facility] | Nick Martinez, | Lumbar radiculopathy | | 2018 | Encounter | MED CTR XRAY [address] | PA-C [address] | | | | | [place] | [address] [place] | | | | | [place] [address] | [place] [address] | | | | | [phone] | [phone] | | | | | | | | | | | | Bag Making Machine Operator, [facility] | | +--------+ + + + [...] [place] | | | | | | [address] | | | | | | | [...] | | | | | ONCE, [facility] 04/06/18 at 1330, For 1 | [...] | | | | Other, ONCE, [facility] 04/06/18 at 1330, | | PM PDT | | | | | For 1 dose | | | | | | + +-------+ +-------+---+---+ +---+---+ | | | +---+---+ + +-------+ +-------+---+---+ | lidocaine (PF) 1% injection 2 | Given | 04/06/20 | 2 mLs | | | | mL 2 mL, Other, ONCE, [facility] 04/06/18 | | 18 1:20 | [...] | (Comment | | Intradermal, ONCE, [facility] 04/06/18 at | | PM PDT | | | ) | | 1330, For 1 dose | | | | | | + +-------+ +-------+---+ + +---+---+ | | | +---+---+ documented in this encounter"
--- OUTSIDE RECORDS SUMMARY | ~2019-09-28 | XMS | Encounter Summary ---
Demographics + + + | Address | [address] | | | [place] [address] | + + + | Home Phone [...] Team Providers + +------+ + | Care Meteorological Equipment Repairer Name | Role | Phone | + +------+ + | Romy De La Paz MD | PCP | | + +------+ + Encounter Details +--------+ + + + + | Date | Type | Department | Care Team | Description | +--------+ + + + + | 07/18/ | Preadmit | [facility] | No, Physician | | | 2019 | Visit | CENTER PREADMIT | | | | | | CLINIC [address] | | | | | | [place], [place] | | | | | | [address] | | | | | | [phone] | | | +--------+ + + + [...] Visit) with [facility] ROOM 5 Medication Sig Instructions Ascorbic Acid [...] by elevating your feet Date Last Reviewed: 6839-9615 [employer]. [address] [place] [address]. All righ ts reserved. This information is [...] [place] | | | | | | [address] | | | | | | | [...] Pre-operative | [facility] | | COMPARISON: BEATIRZ C ARM GUIDANCE (03/28/2019); BEATRIZ C ARM [...] | | LABORATORY | | | | Blvd;[place] [address] | | | | + + + + + + + + | Specimen | + + | Blood | + + + + + + + | Performing | Address | City/State/Zipcode | Phone Number | | Organization | | | | + + + + + | [facility] | [address] | [place] [address] | [phone] | + + + + + MRSA [...] [facility] | | | | performed at [facility];[address] | | LABORATORY | | | | [address];[place], [place] | | | | | | [address] | | | | + + + + + + + + | Specimen | + + | Tissue - Both | | anterior nares (body | | structure) | + + + + + + + | Performing | Address | City/State/Zipcode | Phone Number | | Organization | | | | + + + + + | [facility] | [address] | [place] [address] | [phone] | + + + + + Protime INR (07/18/2019 2:26 PM PDT) + + + + + + | Component | Value | Ref Range | Performed | Pathologist | | | | | At | Signature | + + + + + + | INR | 1.0Comment: REFERENCE | | [facility] | | | | RANGE:0.9 - [...] | | | | performed at [facility];[address] | | | | | | [address];[place] | | | | | | [address] | | | | + + + + + + + + | Specimen | + + | Blood | + + + + + + + | Performing | Address | City/State/Zipcode | Phone Number | | Organization | | | | + + + + + | [facility] | [address] | [place] [address] | [phone] | + + + + + PTT (07/18/2019 2:26 PM PDT) + + + + + + | Component | Value | Ref Range | Performed | Pathologist | | | | | At | Signature | + + + + + + | PTT | 29Comment: Testing | 23 - 32 seconds | [facility] | | | | performed at [facility];[address] | | LABORATORY | | | | [address];[place] | | | | | | [address] | | | | + + + + + + + + | Specimen | + + | Blood | + + + + + + + | Performing | Address | City/State/Zipcode | Phone Number | | Organization | | | | + + + + + | [facility] | [address] | [place] [address] | [phone] | + + + + + Comprehensive [...] W | | | | | | [facility], | | | | | | [place] [address] | | | | + + + + + + + + | Specimen | + + | Blood | + + + + + + + | Performing | Address | City/State/Zipcode | Phone Number | | Organization | | | | + + + + + | [facility] | [address] | [place] [address] | [phone] | + + + + + CBC [...] | | | | | [place] [address] | | | | + + + + + + + + | Specimen | + + | Blood | + + + + + + + | Performing | Address | City/State/Zipcode | Phone Number | | Organization | | | | + + + + + | [facility] | [address] | [place] [address] | [phone] | + + + + + ECG [...]
--- OUTSIDE RECORDS SUMMARY | ~2019-09-28 | XMS | Encounter Summary ---
Demographics + + + | Address | [address] | | | [place] [address] | + + + | Home Phone [...] Providers + +------+ + | Care Community Education Specialist Name | Role | Phone | [...] | region | [address] | [address] [place], | | | | | Chronic low | [place], [place] | [place] [address] | | | | | back pain | [address] | Phone: | | | | | Facet | Phone: | [phone] | | | | | arthritis of | [phone] | Fax: | | | | | lumbar | Fax: | [phone] | | | | | region | [phone] | | | | | | Scoliosis [...] | | | | | | [place] OFFICE | | | | | | [...] lumbar region - | | | | [place], | [address] [place], | left L5-S1 (Primary | | | | [place] [address] | [place] [address] | Dx); Chronic low | | | | [phone] | [phone] | back pain; Facet | | | [...] [place] | | | | | | [address] | | | | | | | [...]
--- OUTSIDE RECORDS SUMMARY | ~2019-09-28 | XMS | Encounter Summary ---
Demographics + + + | Address | [address] | | | [place] [address] | + + + | Home Phone [...] Team Providers + +------+ + | Care Apn Name | Role | Phone | + [...] + + | 05/09/ | Telephone | [facility] | Nick Martinez, | Results, Imaging | | 2017 | | PHYSIATRY [address] | PA-C [address] | | | | | [place], | [address] [place] | | | | | [place] [address] | [place] [address] | | | | | [phone] | [phone] | | | | | | | [...] [place] | | | | | | [address] | | | | | | | | +--------+---------+ + + + documented as of this encounter Visit Diagnoses Not on filedocumented in this encounter"
--- OUTSIDE RECORDS SUMMARY | ~2019-09-28 | XMS | Encounter Summary ---
Demographics + + + | Address | [address] | | | [place] [address] | + + + | Home Phone [...] Providers + +------+ + | Care Heel Burnisher Name | Role | Phone | [...] + + | 07/26/ | Telephone | [facility] | Darrin Hoyos | Records Request (MRI | | 2013 | | NEUROSURGERY [address] | [address] | OF LUMBAR SPINE) | | | | [address] | [address] | | | | | [place], [place] | [place] [address] | | | | | [address] | [phone] | | | | | [phone] | | | +--------+ + + + [...] [place] | | | | | | [address] | | | | | | | | +--------+---------+ + + + documented as of this encounter Visit Diagnoses Not on filedocumented in this encounter"
--- OUTSIDE RECORDS SUMMARY | ~2019-09-28 | XMS | Encounter Summary ---
Demographics + + + | Address | [address] | | | [place] [address] | + + + | Home Phone [...] Providers + +------+ + | Care Learning And Development Assistant Name | Role | Phone | [...] [place], [place] | | | | | [place], [place] | [address] | | | | | [address] | | | | | | [phone] | | | +--------+ + + + [...] | | | | | | [address] [place], [place] | | | | | | [address] | | | | | | | [...] 0.88 m/s MV | | | Dec [place]: 3.57 m/s2 MV DecT: 230.60 ms MV E Mark: 0.82 m/s | | | MV E/A Ratio: 0.93 MV PHT: 66.87 ms MVA By PHT: 3.28 cm2 | | | Septal e': 0.05 m/s Septal E/e': 15.05 Lateral e': 0.08 m/s | | | Lateral E/e': 9.70 RAP: 5 mmHg Manager Generation: | | | Authenticated by: Nena Franco Report Date/Time: -- | | | [id number]:11:24 | | + + + + + [...] cmLVPWd: 0.73 cmLVOT Area: 3.03 | | gm5BNUW Diam: 1.96 cm%FS: 33.05 %EF(Teich): 62.03 %ESV(Teich): 29.33 mlLVIDs: | | 2.79 cmSV(Teich): 47.94 mlRVIDd: 2.59 cmLAESV(A-L): 41.85 mlLAESV Index (A-L): | | 26.32 ml/m2LAAs A2C: 12.87 il4HRJNP A-L A2C: 32.77 mlLALs A2C: 4.29 cmLAAs A4C: | | 16.44 nk3OOWLT A-L A4C: 50.32 mlLALs A4C: 4.55 cmAV maxP.92 mmHgAV meanPG: | | 4.38 mmHgAV Vmax: 1.40 m/Tisha Vmean: 0.99 m/Tisha VTI: 32.81 cmAVA Vmax: 2.11 | | cm2AVA (VTI): 2.40 cr9VAEQ (Vmax): 0.00 cm2/m2AVAI (VTI): 0.00 cm2/m2LVOT maxPG: | | 3.84 mmHgLVOT meanP.47 mmHgLVSI Dopp: 49.70 ml/m2LVSV Dopp: 79.02 mlLVOT | | Vmax: 0.98 m/sLVOT Vmean: 0.75 m/sLVOT VTI: 26.05 cmMV A Mark: 0.88 m/sMV Dec | | [place]: 3.57 m/s2MV DecT: 230.60 msMV E Mark: 0.82 m/sMV E/A Ratio: 0.93MV PHT: | | 66.87 msMVA By PHT: 3.28 da5Cdavbr e': 0.05 m/sSeptal E/e': 15.05Lateral e': | | 0.08 m/sLateral E/e': 9.70RAP: 5 mmHg Manager Generation:Authenticated by: Nena | | AlsmandareeraReport Date/Time: -- [id number]_91:11:24 IMPRESSION: 1. This was a technically | [...] A Mark: 0.88 m/s | |MV Dec [place]: 3.57 m/s2 | |MV DecT: 230.60 ms | |MV E Mark: 0.82 m/s | |MV E/A Ratio: 0.93 | |MV PHT: 66.87 ms | |MVA By PHT: 3.28 cm2 | |Septal e': 0.05 m/s | |Septal E/e': 15.05 | |Lateral e': 0.08 m/s | |Lateral E/e': 9.70 | |RAP: 5 mmHg | | | |Manager Generation: | |Authenticated by: Nena Franco | |Report Date/Time: -- 32_8-1-1911_88:11:24 | | | |IMPRESSION: | |1. This [...]
--- OUTSIDE RECORDS SUMMARY | ~2019-09-28 | XMS | Encounter Summary ---
Demographics + + + | Address | [address] | | | [place] [address] | + + + | Home Phone [...] Providers + +------+ + | Care Car Park Attendant Name | Role | Phone | [...] Encounter | at [facility] [address] | [address] | medical records from | | | | Abbe Soto Mailcode: | [address] [place]IT, | [facility] in | | | | [facility] Center for | [place] [address] | [facility] | | | | [facility], | [phone] | in [place] | | | | [facility] | | Ant | | | | floor [place], [place] | | | | | | [address] | | | | | | [phone] | | | +--------+ + + + [...]
--- OUTSIDE RECORDS SUMMARY | ~2019-09-28 | XMS | Encounter Summary ---
Demographics + + + | Address | [address] | | | [place] [address] | + + + | Home Phone [...] + + + | Author | [facility] | + + + | Organization | [facility] | + + + | Address | Unknown | + + + | Phone | Unavailable | + + + Support + + +---------+ + | Name | Relationship | Address | Phone | + + +---------+ + | Royce Menchaca | ECON | Unknown | | + + +---------+ + Care Team Providers + +------+ + | Care Smalltalk Developer Name | Role | Phone | [...] | | 2012 | | [facility] | [address] | | | | | Pav[address] | [place], | | | | | [address] | [place] [address] | | | | | Aravind Hannon | [phone] | | | | | [place], [place] | | | | | | [address] | | | | | | [phone] | | | +--------+ + + + [...]
--- OUTSIDE RECORDS SUMMARY | ~2019-09-28 | XMS | Encounter Summary ---
Demographics + + + | Address | [address] | | | [place] [address] | + + + | Home Phone [...] Providers + +------+ + | Care Marine Resource Economist Name | Role | Phone | + +------+ + | Rmoy De La Paz MD | PCP | | + +------+ + Reason for Visit + + + | Reason | Comments | + + + | Medication Question | | + + + Encounter Details +--------+ + + + + | Date | Type | Department | Care Team | Description | +--------+ + + + + | 08/06/ | Telephone | [facility] | Maykel Hutchins MD | Medication Question | | 2019 | | [facility] | [address] | | | | | ORTHOPEDIC SPINE | [place] | | | | | [address] [place] | [place] [address] | | | | | [place] | [phone] | | | | | [address] | | | | | | [phone] | | | +--------+ + + + [...] [place] | | | | | | [id number] | | | | | | | | +--------+---------+ + + + documented as of this encounter Visit Diagnoses Not on filedocumented in this encounter"
--- OUTSIDE RECORDS SUMMARY | ~2019-09-28 | XMS | Encounter Summary ---
Demographics + + + | Address | [address] | | | [place] [address] | + + + | Home Phone [...] Team Providers + +------+ + | Care Cardiology Technologist Name | Role | Phone | [...] + + | 11/01/ | Office | [facility] | Shay Dietz | Back pain (Primary | | 2012 | Visit | PHYSIATRY [address] | Dx); BACK PAIN, | | | | [place], | [address] [place], [place] | [place]UM[place]; | | | | [place] [address] | [id number] | OSTEOARTHRITIS, | | | | [phone] | | LUMBOSACRAL SPINE; | | | [...] - 11/01/2012 9:06 AM PSTFollow-[facility] minutes before your scheduled procedure [...] our off ice. Please also provide a dedicated regional driver to take you home on the [...] [place] | | | | | | [address] | | | | | | | [...]
--- OUTSIDE RECORDS SUMMARY | ~2019-09-28 | XMS | Encounter Summary ---
Demographics + + + | Address | [address] | | | [place] [address] | + + + | Home Phone [...] Providers + +------+ + | [facility] Teacher Name | Role | Phone | [...] | | [address] [place] | [place] [address] | | | | | [place] | [phone] | | | | | [address] | | | | | | [phone] | | | +--------+ + + + [...] [place] | | | | | | [address] | | | | | | | | +--------+---------+ + + + documented as of this encounter Visit Diagnoses Not on filedocumented in this encounter"
--- OUTSIDE RECORDS SUMMARY | ~2019-09-28 | XMS | Encounter Summary ---
Demographics + + + | Address | [address] | | | [place] [address] | + + + | Home Phone [...] Providers + +------+ + | Care Nuclear Medicine Technician Name | Role | Phone | [...] | SR | | | | | [phone] | | | +--------+ + + + [...] [place] | | | | | | [address] | | | | | | | | +--------+---------+ + + + documented as of this encounter Visit Diagnoses Not on filedocumented in this encounter
--- OUTSIDE RECORDS SUMMARY | ~2019-09-28 | XMS | Encounter Summary ---
Demographics + + + | Address | [address] | | | [place] [address] | + + + | Home Phone [...] Providers + +------+ + | Care Air Cargo Ground Crew Supervisor Name | Role | Phone | + +------+ + | Romy De La Paz MD | PCP | | + +------+ + Encounter Details +--------+ + + + + | Date | Type | Department | Care Team | Description | +--------+ + + + + | 07/18/ | Clinical | [facility] | | Radiculopathy of | | 2019 | Support | NEUROSURGERY [address] | | thoracolumbar | | | | [address] | | region; | | | | [place], [place] | | Postlaminectomy | | | | [address] | | syndrome, thoracic | | | | [phone] | | region | +--------+ + + [...] in this encounter Patient Instructions Patient Instructions Nkii Pizarro RN - 07/18/2019 12:45 PM PDTPreOp [...] concerns feel free to call us at [phone]. documented in this encounter Progress Notes Niki [...] that she will on occasion run a Lumatix ow grade fever and all tests and blood work come back negative infection, patient states she does have a history of UTI's as well. Patient was sent to [facility] for their scheduled pre-admit appointment, [...] [place] | | | | | | [id number] | | | | | | | | +--------+---------+ + + + documented as of this encounter Visit Diagnoses + + | Diagnosis | + + | Radiculopathy of thoracolumbar region Thoracic or lumbosacral neuritis or | | radiculitis, unspecified | + + | Postlaminectomy syndrome, thoracic region | + + documented in this encounter
--- OUTSIDE RECORDS SUMMARY | ~2019-09-28 | XMS | Clinical Summary ---
Demographics + + + | Address | [address] | | | [place] [address] | + + + | Home Phone | | + + + | Preferred Language | Unknown | + + + | Marital Status | | + + + | Samaritan Affiliation | 1013 | + + + | Race | Unknown | + + + | Ethnic Group | Unknown | + + + Author + + + | Author | [facility] (Historical as of | | | 06-16-19) | + + + | Organization | [facility] (Historical as of | | | [...] Providers + +------+ + | Care Soil Analyst Name | Role | Phone | [...] +---------+------+------+-------+ | | Apply to affected | 04874 g | 3 | 04/30 | 04/30 [...] Overview: Added automatically from request for surgery [id number] | + + + + + | Radiculopathy of thoracolumbar region | 06/07/2019 | + + + + + | Overview: Added automatically from request for surgery [id number] | + + + + + | Radiculopathy, lumbosacral region | 06/07/2019 | + + + + + | Overview: Added automatically from request for surgery [id number] | + + + + + | Spondylosis without myelopathy or radiculopathy, cervical region | 03/20/2019 | + + + + + | Overview: Added automatically from request for surgery [id number] | + + + + + | Spondylosis without myelopathy or radiculopathy, lumbosacral | 03/20/2019 | | region | | + + + + + | Overview: Added automatically from request for surgery [id number] | + + + + + | Chronic bilateral low back pain without sciatica | 03/20/2019 | + + + + + | Overview: Added automatically from request for surgery [id number] | + + + + + | Strain of lumbar region | 02/25/2019 | + + + + + | Overview: Added automatically from request for surgery [id number] | + + + + + | Lumbar region somatic dysfunction | 02/25/2019 | + + + + + | Overview: Added automatically from request for surgery [id number] | + + + + + | Chronic low back pain with sciatica | 02/25/2019 | + + + + + | Overview: Added automatically from request for surgery [id number] | + + + + + | Intervertebral disc disorders with radiculopathy, lumbosacral | 02/25/2019 | | region | | + + + + + | Overview: Added automatically from request for surgery [id number] | + + + + + | Spinal stenosis of lumbosacral region | 02/25/2019 | + + + + + | Overview: Added automatically from request for surgery [id number] | + + + + + | [...] Overview: Added automatically from request for surgery [id number] | | Problem List Mica Patcher Utility | + + + + + [...] | | 11/23/ | [id number] | | [id number]: Qty: 1 on | | | MEDICAL - | | 2020 | S | | 03/28/2019 by Sonja, | | | JU | | | /[id number] | | DO Alfredo | | | [...] +------+-------+ + | MEDICARE | MEDICA | [id number] | | | [address] | | | RE | | | | [place] [address] | | | IP-OP | | | | | + +--------+ +------+-------+ + | COMMERCIAL OTHER | COMMER | [id number] | | | | | | CIAL [...] BOWEN | al/Fam | | 1945 | [phone] | [place] [address] | | | jose | | | [phone] | | + +--------+ +--------+ + +
--- OUTSIDE RECORDS SUMMARY | ~2019-09-28 | XMS | Encounter Summary ---
Demographics + + + | Address | [address] | | | [place] [address] | + + + | Home Phone [...] Providers + +------+ + | Care Clinical Technologist Name | Role | Phone | [...] 2013 | | PHYSIATRY [address] | FURNACE ERECTOR | | | | | [place], | | | | | | [place] [address] | | | | | | [phone] | | | +--------+ + + + [...] [place] | | | | | | [address] | | | | | | | | +--------+---------+ + + + documented as of this encounter Visit Diagnoses Not on filedocumented in this encounter"
--- OUTSIDE RECORDS SUMMARY | ~2019-09-28 | XMS | Encounter Summary ---
Demographics + + + | Address | [address] | | | [place] [address] | + + + | Home Phone [...] Providers + +------+ + | Care Marketing And Promotions Manager Name | Role | Phone | + +------+ + PCP | Unavailable | + +------+ + Encounter Details +--------+ + + + + | Date | Type | Department | Care Team | Description | +--------+ + + + + | 02/22/ | Hospital | [facility] | Ken Craft | | | 2005 - | Encounter | [facility] | MD Masha [address] | | | | | TH ADULT [address] [place], [place] | | | 02/28/ | | [address] [place], [place] | [address] | | | 2005 | | [address] | | | | | | [phone] | Samantha Estes | | | | | | MD Jewel [address] | | | | | | [address] | | | | | | [place] [address] | | | | | | | [...] [place] | | | | | | [address] | | | | | | | | +--------+---------+ + + + documented as of this encounter Visit Diagnoses Not on filedocumented in this encounter"
--- OUTSIDE RECORDS SUMMARY | ~2019-09-28 | XMS | Encounter Summary ---
Demographics + + + | Address | [address] | | | [place] [address] | + + + | Home Phone [...] Team Providers + +------+ + | Care Parts Salvager Name | Role | Phone | + [...] | | [address] | [place] [address] | | | | | [place] | [phone] | | | | | [address] | | | | | | [phone] | | | +--------+ + + + [...] [place] | | | | | | [address] | | | | | | | | +--------+---------+ + + + documented as of this encounter Visit Diagnoses Not on filedocumented in this encounter"
--- OUTSIDE RECORDS SUMMARY | ~2019-09-28 | XMS | Encounter Summary ---
Demographics + + + | Address | [address] | | | [place] [address] | + + + | Home Phone [...] Team Providers + +------+ + | Care Pearl Stringer Name | Role | Phone | + [...] | MRI Lumbar | [place], | [address] | | | | | Spine wo | [place] [address] | Phone: | | | | | Contrast | Phone: | [phone] | | | | | | [phone] | Fax: | | | | | | Fax: | [phone] | | | | | | [phone] | | +--------+--------+ + + + + Reason for Visit + + + | Reason | Comments | + + + | Follow-up | Discuss Injections | + + + Encounter Details +--------+---------+ + + + | Date | Type | Department | Care Team | Description | +--------+---------+ + + + | 04/03/ | Office | [facility] | Juan, Nick, | Lumbar radiculopathy | | 2018 | Visit | PHYSIATRY [address] | PA-C [address] | (Primary Dx); BACK | | | | [place], | [address] [place] | PAIN, LUMBAR; | | | | [place] [address] | [place] [address] | SACROILIITIS; DDD | | | | [phone] | [phone] | (degenerative disc | | | | [...] of the procedure you must provide a racing car driver to take you home. For all [...] press against a nerve. Date Last Reviewed: 08/03/201519997165-5868 [employer]. [address] [place] [address], [place] [address]. All righ ts reserved. This information is [...] and working more hours due to the [employer] Round up. Her pain ba ck is [...] no apparent deficits with short or terminal carman memory. She has appropriate fund of knowledge [...] [place] | | | | | | [address] | | | | | | | [...]
--- OUTSIDE RECORDS SUMMARY | ~2019-09-28 | XMS | Encounter Summary ---
[...] Team Providers + +------+ + | Care End Finder Forming Department Name | Role | Phone | + [...] Required | Rehabilitatio | | Yan[place], | [place] | | | | n | radiculopath | PA-C [address] | [place], | | | | | y Chronic | [address] | [place] [address] | | | | | low back | [place], [place] | Phone: | | | | | pain Facet | [address] | [phone] | | | | | arthritis of | Phone: | Fax: | | | | | lumbar | [phone] | [phone] | | | | | region | Fax: | | | | | | Foram[place] | [phone] | | | | | | stenosis [...] + | 04/17/ | Office | [facility] | Shahnazdanowicz, | Left lumbar | | 2013 | Visit | PHYSIATRY [address] | [address] | radiculopathy | | | | [place], | [facility], | (Primary Dx); | | | | [place] [address] | [place] [id number] | Chronic low back | | | | [phone] | [phone] | pain; Facet | | | | [...] of the procedure you must provide a electric mule driver to take you home. For all [...] me to refill this prescription as [facility] care provider will not refill [...] has no apparent deficits with short or manager terminal memory. She has appropriate fund of [...] Therapy prescription has been given to the [facility]. 3. I did discussed neuropathic [...] [place] | | | | | | [address] | | | | | | | [...] radiculopathy ICD-9 Code 724.4 Kori Caputo | [facility] | | Joanne presents to the [...] + | [facility] | [address] [place] [address] | [place], [place] | [phone] | | [facility] | | [address] | | | - IMAGING | | [...]
--- OUTSIDE RECORDS SUMMARY | ~2019-09-28 | XMS | Encounter Summary ---
Demographics + + + | Address | [address] | | | [place] [address] | + + + | Home Phone [...] Team Providers + +------+ + | Care Charge Loader Name | Role | Phone | [...] | | | | | right-sided | [place], [place] | [place], [place] | | | | | sciatica | [address] | [address] | | | | | Facet | Phone: | Phone: | | | | | arthritis of | [phone] | [phone] | | | | | lumbar | Fax: | Fax: | | | | | region | [phone] | [phone] | | | | | Foraminal | [...] | Popeye, | | | | | Live Hanger / | Low back | Oxana Solorio, | [place], | | | | Physical | pain | CONDITIONING YARD SUPERVISOR [address] | [place] | | | | Medicine and | Bilateral | [address] [place] | [address] | | | | Rehabilitatio | leg pain | [place], | [address] [place], | | | | n | Bilateral | [place] [address] | [place] [address] | | | | | hip pain | Phone: | Phone: | | | | | low back | [phone] | [phone] | | | | | pain, | Fax: | Fax: | | | | | bilateral | [phone] | [phone] | | | | | leg pain [...] | (Primary Dx); | | | | [place], | [place], | Chronic right-sided | | | | [place] [address] | [place] [address] | low back pain with | | | | [phone] | [phone] | right-sided | | | | | [...] 07/06/2016 9:31 AM PDT1) Lumbar MRI [facility] - you need to call [...] of the procedure you must provide a ice cream truck driver to take you home. For [...] and working more hours due to the [employer] Round up. Her pain back is worse [...] no apparent deficits with short or intermodal customer service memory. She has appropriate fund of knowledge [...] PT (multiple sessions over the years) and team primary care physician. Unfortunately she lola nues to have significant [...] has been ordered to be done at [place] [address]. We will follow up once images are [...] [place] | | | | | | [address] | | | | | | | [...] Spondylosis ICD-10 Code M47.816 Kori Caputo | [facility] | | Joanne presents to the fluoroscopy suite for [facility] | | fluoroscopically-guided bilateral L5-S1 facet injections [...] [address] | [place] | [phone] | | [facility] | | [address] | | | - IMAGING | | [...]
--- OUTSIDE RECORDS SUMMARY | ~2019-09-28 | XMS | Encounter Summary ---
Demographics + + + | Address | [address] | | | [place] [address] | + + + | Home Phone [...] Providers + +------+ + | Care Security Management Specialist Name | Role | Phone | + +------+ + PCP | Unavailable | + +------+ + Encounter Details +--------+ + + + + | Date | Type | Department | Care Team | Description | +--------+ + + + + | 06/26/ | Respiratory | | Other, Faculty | | | 2006 | Therapy | | [phone] | | +--------+ + + + + [...] RADHA ALONZO | [address] | [place], [place] | | | DIAGNOSTICS - | J[place] J[place] | [address] | | | PULMONARY FUNCTION | | | | + + + + + documented in this encounter Visit Diagnoses Not on filedocumented in this encounter"
--- OUTSIDE RECORDS SUMMARY | ~2019-09-28 | XMS | Encounter Summary ---
Demographics + + + | Address | [address] | | | [place] [address] | + + + | Home Phone [...] Providers + +------+ + | Care Security Operations Engineer Name | Role | Phone | [...] [address] | | | | | [place], | [place], [place] | | | | | [place] [address] | [address] | | | | | [phone] | | | +--------+ + + + [...] [place] | | | | | | [address] | | | | | | | | +--------+---------+ + + + documented as of this encounter Visit Diagnoses Not on filedocumented in this encounter"
--- OUTSIDE RECORDS SUMMARY | ~2019-09-28 | XMS | Encounter Summary ---
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 Removed Ranitidine and Myrbetriq from med list as these have not been filled in the last 3 months. Please see [facility] med list for updated medication list. Electronically [...] [place] | | | | | | [id number] | | | | | | | [...] L?MRN: | | | | | | [id number] | | | [id number] | | | ecurit | | | [...] | | | St. | | | [place] | | | y | | | [...] | | | guidel | | | edler | | | and | | | [...] | | | St. | | | [place] | | | y H. | | [...] | | | St. | | | [place] | | | y H. | | [...] | | | St. | | | [place] | | | y H. | | [...] | | | St. | | | [place] | | | y H. | | [...] | | | St. | | | [place] | | | y H. | | [...] | | | St. | | | [place] | | | y H. | | [...] | | | St. | | | [place] | | | y | | | [...] | | | L | | | INFORMATION TECHNOLOGY DATA ANALYST | | | , MD 2 | [...] + + | [facility] | [address] | [place] [address] | [phone] | | HOSPITAL LABORATORY | | | [...] + + | [facility] | [address] | [place] [address] | [phone] | | HOSPITAL LABORATORY | | | [...] | | HOSPITAL | | | | Antipyretic/Pckzcskii85. | | LABORATORY | | | | [...] + + | [facility] | [address] | [place] [address] | [phone] | | HOSPITAL LABORATORY | | | [...] + + | [facility] | [address] | [place] [address] | [phone] | | HOSPITAL LAB[facility]ATORY | | | [...] | | HOSPITAL | | | | mL/min/1.90j9Jsdn than | | LABORATORY | | | [...] + + | [facility] | [address] | [place] [address] | [phone] | | HOSPITAL LABORATORY | | | | + + + + + CBC with Differential (06/23/2018 9:30 PM PDT) + + + + + + | Component | Value | Ref Range | Performed | Pathologist | | | | | At | Signature | + + + + + + | WBC | 6.2 | 4.3 - 10.4 K/uL | [facility] | | | | | | [facility] [...] + + | [facility] | [address] | [place] [address] | [phone] | | HOSPITAL LABORATORY | | | [...] + + | [facility] | [address] | [place] [address] | [phone] | | HOSPITAL LABORATORY | | | [...] - 1.030 | [facility] | | | [facility] | | | [facility] | | | | | | HOSPITAL | | | | | | LABORATORY | | + + + + + + | Protein, | Negative | Negative | [facility] | | | Urine | | | [...] + + | [facility] | [address] | [place] [address] | [phone] | | HOSPITAL LABORATORY | | | [...] the attending | LABORATORY | | physician. Yzsz-qzn-ihdaprq drugs may cross react with some methods. [...] + + | [facility] | [address] | [place] [address] | [phone] | | HOSPITAL LABORATORY | | | [...]
--- OUTSIDE RECORDS SUMMARY | ~2019-09-28 | XMS | Encounter Summary ---
Demographics + + + | Address | [address] | | | [place] [address] | + + + | Home Phone [...] Team Providers + +------+ + | Care Kit Planner Name | Role | Phone | [...] [address] | | | | | [place], | [place], [place] | | | | | [place] [address] | [address] | | | | | [phone] | | | +--------+ + + + [...] [place] | | | | | | [address] | | | | | | | | +--------+---------+ + + + documented as of this encounter Visit Diagnoses Not on filedocumented in this encounter"
--- OUTSIDE RECORDS SUMMARY | ~2019-09-28 | XMS | Encounter Summary ---
Demographics + + + | Address | [address] | | | [place] [address] | + + + | Home Phone [...] Providers + +------+ + | Care Manufacturing Shift Supervisor Name | Role | Phone | [...] [address] | | | | | [place], | [address] [place] | | | | | [place] [address] | [place] [address] | | | | | [phone] | [phone] | | | | | | | [...] [place] | | | | | | [address] | | | | | | | | +--------+---------+ + + + documented as of this encounter Visit Diagnoses Not on filedocumented in this encounter"
--- OUTSIDE RECORDS SUMMARY | ~2019-09-28 | XMS | Encounter Summary ---
Demographics + + + | Address | [address] | | | [place] [address] | + + + | Home Phone [...] Providers + +------+ + | Care Tack Welder Name | Role | Phone | + [...] Thoracic or | [place], | [address] | | | | | lumbosacral | Shay Mukherjee MD | [place], | | | | | neuritis or | [address] | [place] | | | | | | [place] | [address] | | | | | radiculitis, | [place], [place] | Phone: | | | | | unspecified | [address] | [phone] | | | | | Procedures | Phone: | Fax: | | | | | [place] INJECT | [phone] | [phone] | | | | | ANES/STEROID | Fax: | | | | | | FORAMEN | [phone] | | | | | | LUMBAR/SACRA | | | | | | | L W IMG | | | | | | | GUIDE ,1 | | | | | | | [place] | | | | | | | [...] + + | 04/18/ | Hospital | [facility] | [place], | Left lumbar | | 2013 | Encounter | MED CTR XRAY [address] | [address] [address] | radiculopathy; | | | | [place] | [place], | Chronic low back | | | | [place] [address] | [place] [address] | pain; Facet | | | | [phone] | [phone] | arthritis of lumbar | | | | | | region; Foram[place] | | | | | Assistant Women'S Soccer Coach [facility] | stenosis of lumbar | | [...] [place] | | | | | | [address] | | | | | | | [...] the fluoroscopy suite for a [facility] | | fluoroscopically-guided left L5-S1 transforaminal [...] [address] | [place] | [phone] | | [facility] | | [address] | | | - IMAGING | | [...]
--- OUTSIDE RECORDS SUMMARY | ~2019-09-28 | XMS | Encounter Summary ---
Demographics + + + | Address | [address] | | | [place] [address] | + + + | Home Phone [...] Providers + +------+ + | Care Parts Classifier Name | Role | Phone | + +------+ + | Wendi Aiken | PCP | | + +------+ + Encounter Details +--------+ + + + + | Date | Type | Department | Care Team | Description | +--------+ + + + + | 05/21/ | Orders Only | [facility] | Provider, | | | 2019 | | SYSTEM GENERIC OP | MD [address] | | | | | [address] | [place] J[place] | | | | | [address] [place], [place] | [place] [address] | | | | | [address] | | | | | | [phone] | | | +--------+ + + + [...] [place] | | | | | | [address] | | | | | | | | +--------+---------+ + + + documented as of this encounter Visit Diagnoses Not on filedocumented in this encounter"
--- OUTSIDE RECORDS SUMMARY | ~2019-09-28 | XMS | Encounter Summary ---
Demographics + + + | Address | [address] | | | [place] [address] | + + + | Home Phone [...] + +------+ + | Care Fire Extinguisher Mechanic Name | Role | Phone | [...] | | | | [place] | [place] [address] | [address] | | | | | Lumbar | Phone: | Phone: | | | | | radiculopath | [phone] | [phone] | | | | | y | Fax: | Fax: | | | | | Procedures | [phone] | [phone] | | | | | HIM 04/17/18 [...] fracture of fifth | | | | [place], | [address] [place] | lumbar vertebra, | | | | [place] [address] | [place] [address] | sequela (Primary | | | | [phone] | [phone] | Dx); Lumbar | | | | [...] [place] | | | | | | [address] | | | | | | | | +--------+---------+ + + + + + +--------+ + + | Name | Type | Priori | Associated Diagnoses | Order Schedule | | | | ty | | | + + +--------+ + + | AMB REFERRAL TO [facility] | Outpatient | Routin | Closed [...]
--- OUTSIDE RECORDS SUMMARY | ~2019-09-28 | XMS | Encounter Summary ---
Demographics + + + | Address | [address] | | | [place] [address] | + + + | Home Phone [...] Providers + +------+ + | Care End Polisher Name | Role | Phone | [...] of this encounter Discharge Summaries Interface, Principal Java Software Engineer In - 08/03/2006 2:03 AM PDT [id number]/ [id number] ROSANA Suarez [id number] Admission Date: 06/26/2006 Discharge Date: 06/30/2006 Staff [...] up with her primary care doctor in [place] to get lab followup within the next [...] psychiatrist, Dr. Pham; his phone number is [phone]. She is to make a followup appointment with him within the next week. The patient is also to follow up with Dr. Kel Young, he is located as well in [place], [place], and is associated with [facility]. She is to follow up with him for repeat electrolytes including potassium, magnesium, and phosphorus within the next several days. Monroe Disla M.D. Sherita [place] M.D., M.P.H. / [id number] / [id number] / [id number] / [id number] cc: * Dr. Pham [facility], [place] FAX: [phone] Kel Young M.D. Electronically signed by Sherita [place] 08-02-2006 11:01:13 AM documented i n this encounter Plan of Treatment Not on filedocumented as of this encounter Visit Diagnoses Not on filedocumented in this encounter"
--- OUTSIDE RECORDS SUMMARY | ~2019-09-28 | XMS | Encounter Summary ---
Demographics + + + | Address | [address] | | | [place] [address] | + + + | Home Phone [...] Author + + + | Author | [facility] | + + + | Organization | [facility] | + + + | Address | Unknown | + + + | Phone | Unavailable | + + + Support + + +---------+ + | Name | Relationship | Address | Phone | + + +---------+ + | Royce Menchaca | ECON | Unknown | | + + +---------+ + Care Team Providers + +------+ + | Care Fisher Clam Name | Role | Phone | + [...] | | 2016 | Encounter | at [facility] [address] | [address] | [place] | | | | [place] Mailcode: | [facility] | | | | | [address] | [place] [address] | | | | | Health and Healing, | [phone] | | | | | [place] [address] [facility] | | | | | | floor [place], [place] | | | | | | [address] | | | | | | [phone] | | | +--------+ + + + [...]
--- OUTSIDE RECORDS SUMMARY | ~2019-09-28 | XMS | Encounter Summary ---
Demographics + + + | Address | [address] | | | [place] [address] | + + + | Home Phone [...] Providers + +------+ + | Care Platform Engineer Name | Role | Phone | + +------+ + | Miquel Calhoun MD | PCP | | + +------+ + Encounter Details +--------+ + + + + | Date | Type | Department | Care Team | Description | +--------+ + + + + | 10/18/ | Telephone | [facility] | Khushbu Cortez, | | | 2012 | | [facility] | ASSOCIATE STORE LEADER [place], [place] | | | | | [address] | [address] | | | | | [address] | | | | | | Aravind Hannon | | | | | | [place], [place] | | | | | | [address] | | | | | | [phone] | | | +--------+ + + + [...]
--- OUTSIDE RECORDS SUMMARY | ~2019-09-28 | XMS | Encounter Summary ---
Demographics + + + | Address | [address] | | | [place] [address] | + + + | Home Phone [...] Team Providers + +------+ + | Care Call Center Receptionist Name | Role | Phone | + +------+ + | Romy De La Paz MD | PCP | | + +------+ + Encounter Details +--------+ + + + + | Date | Type | Department | Care Team | Description | +--------+ + + + + | 07/17/ | Prep for | [facility] | Maykel Hutchins MD | Chronic low back | | 2019 | Procedure | [facility] | [address] | pain with sciatica, | | | | ORTHOPEDIC SPINE | [address] [facility], | sciatica laterality | | | | [address] [place] | [place] [address] | unspecified, | | | | [address] [facility] [address] | [phone] | unspecified back | | | | [address] | | pain laterality | | | | [phone] | | (Primary Dx); Right | | [...] [place] | | | | | | [address] | | | | | | | [...]
--- OUTSIDE RECORDS SUMMARY | ~2019-09-28 | XMS | Encounter Summary ---
Demographics + + + | Address | [address] | | | [place] [address] | + + + | Home Phone [...] Team Providers + +------+ + | Care Pmp Name | Role | Phone | + [...] | | | stenosis | B | [address] | | | | | | [place], [place] | Phone: | | | | | | [address] | [phone] | | | | | | Phone: | Fax: | | | | | | [phone] | [phone] | | | | | | Fax: | | | | | | | [phone] | | + +--------+ + + + + Encounter Details +--------+---------+ + + + | Date | Type | Department | Care Team | Description | +--------+---------+ + + + | 07/18/ | Office | [facility] | Denys Sibley, | Lumbar region | | 2018 | Visit | [facility] | DO [address] | somatic dysfunction | | | | [address] [place] [place] | (Primary Dx); | | | | [address] [address] | [address] | Intractable back | | | | [place] | | pain; Encounter for | | | | [address] | | long-term use of | | | | [phone] | | opiate analgesic; | | | [...] Diagnosis Date Acute renal failure ([facility]) April 2013 Anesthesia hallucinated after bladder repair Arthralgia Asthma Asthma Cancer ([facility]) 2004 breast Cerebrovascular accident (CVA) ([facility] [...] of lumbar spine 04/17/2014 Seizure ([facility]) one due to meds, two [...] to physical therapy, mass age therapy, acupuncture, landcare facilitator, along with recommended psychological counseling , either privately, or in group sessions offered by private care individuals, community serv ices, or buddhism organizations. Appropriate referrals were made at patient [...] return to office in 4 weeks, [facility] was consulted and appears appropriate, [...] complications with the passage of time. terminal press operator use is also associated with depressions, [...] [place] | | | | | | [address] | | | | | | | [...]
--- OUTSIDE RECORDS SUMMARY | ~2019-09-28 | XMS | Encounter Summary ---
Demographics + + + | Address | [address] | | | [place] [address] | + + + | Home Phone [...] Team Providers + +------+ + | Care Merchandising Execution Manager Name | Role | Phone | + +------+ + | Miquel Calhoun MD | PCP | | + +------+ + Encounter Details +--------+ + + + + | Date | Type | Department | Care Team | Description | +--------+ + + + + | 11/12/ | Telephone | [facility] | Khushbu Cortez, | | | 2013 | | [facility] | TESTER EQUIPMENT [place], [place] | | | | | [address] | [address] | | | | | [address] | | | | | | [place] | | | | | | [place], [place] | | | | | | [address] | | | | | | [phone] | | | +--------+ + + + [...]
--- OUTSIDE RECORDS SUMMARY | ~2019-09-28 | XMS | Encounter Summary ---
Demographics + + + | Address | [address] | | | [place] [address] | + + + | Home Phone [...] Providers + +------+ + | Care Electrical Appliance Repairer Name | Role | Phone | + +------+ + | Wendi Aiken | PCP | | + +------+ + Encounter Details +--------+ + + + + | Date | Type | Department | Care Team | Description | +--------+ + + + + | 12/28/ | Hospital | [facility] | Conversion | Diagnosis unknown | | 2018 | Encounter | CONVERSION [address] | Transaction, | | | | | [address] | Provider Unknown | | | | | [place], [place] | [phone] | | | | | [address] | | | | | | [phone] | | | +--------+ + + + [...] [place] | | | | | | [address] | | | | | | | [...]
--- OUTSIDE RECORDS SUMMARY | ~2019-09-28 | XMS | Encounter Summary ---
Demographics + + + | Address | [address] | | | [place] [address] | + + + | Home Phone [...] Team Providers + +------+ + | Care Kaiako Kohanga Reo Name | Role | Phone | + [...] | | | | [address] | [place] [address] | | | | | [place], [place] | [phone] | | | | | [address] | | | | | | [phone] | | | +--------+ + + + [...] [place] | | | | | | [address] | | | | | | | [...]
--- OUTSIDE RECORDS SUMMARY | ~2019-09-28 | XMS | Encounter Summary ---
Demographics + + + | Address | [address] | | | [place] [address] | + + + | Home Phone [...] Providers + +------+ + | Care Paper Box Maker Name | Role | Phone | [...] Vasquez VALDEZ | | | | | [phone] | [place] [address] | | +--------+ + + + + [...] | | | | | | [address] [facility] | | | | | | [id number] | | | | | | | [...]
--- OUTSIDE RECORDS SUMMARY | ~2019-09-28 | XMS | Encounter Summary ---
Demographics + + + | Address | [address] | | | [place] [address] | + + + | Home Phone [...] Providers + +------+ + | Care Air Crew Supervisor Name | Role | Phone | + +------+ + | Romy De La Paz MD | PCP | | + +------+ + Encounter Details +--------+ + + + + | Date | Type | Department | Care Team | Description | +--------+ + + + + | 10/18/ | Telephone | [facility] | Shay Dietz | | | 2012 | | MEDICINE [address] | MD Lonny [address] | | | | | [address] [facility] | [place], [place] | | | | | [place] [address] | [address] | | | | | [phone] | | | +--------+ + + + [...] [place] | | | | | | [address] | | | | | | | | +--------+---------+ + + + documented as of this encounter Visit Diagnoses Not on filedocumented in this encounter"
--- OUTSIDE RECORDS SUMMARY | ~2019-09-28 | XMS | Encounter Summary ---
Demographics + + + | Address | [address] | | | [place] [address] | + + + | Home Phone [...] + + + | Author | [facility] | + + + | Organization | [facility] | + + + | Address | Unknown | + + + | Phone | Unavailable | + + + Support + + +---------+ + | Name | Relationship | Address | Phone | + + +---------+ + | Royce Menchaca | ECON | Unknown | | + + +---------+ + Care Team Providers + +------+ + | Care It Systems Administrator Name | Role | Phone | + +------+ + | Oaxna Nye | PCP | | + +------+ + Encounter Details +--------+------+ + + + | Date | Type | Department | Care Team | Description | +--------+------+ + + + | 03/09/ | Lab | Laboratory at [facility] | | Chest pain, | | 2015 | | [address] | | unspecified type | | | | [place], [place] | | | | | | [address] | | | | | | [phone] | | | +--------+------+ + + + [...] NON-HDL | 54 | <=130 mg/dL | [facility] | | | CHOLESTEROL | | [...] | + + + + + | [facility] | [address] | [place], [place] | | | | [address] | [address] | | + + + + + documented in this encounter Visit Diagnoses + + | Diagnosis | + + | Chest pain, unspecified type | + + documented in this encounter"
--- OUTSIDE RECORDS SUMMARY | ~2019-09-28 | XMS | Clinical Summary ---
Demographics + + + | Address | [address] | | | [place] [address] | + + + | Home Phone [...] | Author | [facility] [employer] (Historical as of | | | 06-16-19) | + + + | Organization | [facility] (Historical as of | | | 06-16-19) [...] Team Providers + +------+ + | Care Enrollment Clerk Name | Role | Phone | [...] +---------+------+------+-------+ | | Apply to affected | 72819 g | 3 | 04/30 | 04/30 [...] Overview: Added automatically from request for surgery [id number] | + + + + + | Radiculopathy of thoracolumbar region | 06/07/2019 | + + + + + | Overview: Added automatically from request for surgery [id number] | + + + + + | Radiculopathy, lumbosacral region | 06/07/2019 | + + + + + | Overview: Added automatically from request for surgery [id number] | + + + + + | Spondylosis without myelopathy or radiculopathy, cervical region | 03/20/2019 | + + + + + | Overview: Added automatically from request for surgery [id number] | + + + + + | Spondylosis without myelopathy or radiculopathy, lumbosacral | 03/20/2019 | | region | | + + + + + | Overview: Added automatically from request for surgery [id number] | + + + + + | Chronic bilateral low back pain without sciatica | 03/20/2019 | + + + + + | Overview: Added automatically from request for surgery [id number] | + + + + + | Strain of lumbar region | 02/25/2019 | + + + + + | Overview: Added automatically from request for surgery [id number] | + + + + + | Lumbar region somatic dysfunction | 02/25/2019 | + + + + + | Overview: Added automatically from request for surgery [id number] | + + + + + | Chronic low back pain with sciatica | 02/25/2019 | + + + + + | Overview: Added automatically from request for surgery [id number] | + + + + + | Intervertebral disc disorders with radiculopathy, lumbosacral | 02/25/2019 | | region | | + + + + + | Overview: Added automatically from request for surgery [id number] | + + + + + | Spinal stenosis of lumbosacral region | 02/25/2019 | + + + + + | Overview: Added automatically from request for surgery [id number] | + + + + + | [...] Overview: Added automatically from request for surgery [id number] | | Problem List Product Marketing Analyst Utility | + + + + + [...] | | 11/23/ | [id number] | | [id number]: Qty: 1 on | | | MEDICAL - | | 2020 | S | | 03/28/2019 by Sonja, | | | JU | | | /[id number] | | DO Alfredo | | | [...] +------+-------+ + | MEDICARE | MEDICA | [id number] | | | [address] | | | RE | | | | [place] [phone] | | | IP-OP | | | | | + +--------+ +------+-------+ + | COMMERCIAL OTHER | COMMER | [id number] | | | | | | CIAL [...] BOWEN | al/Fam | | 1945 | [phone] | [place] [address] | | | jose | | | [phone] | | + +--------+ +--------+ + +
--- OUTSIDE RECORDS SUMMARY | ~2019-09-28 | XMS | Encounter Summary ---
Demographics + + + | Address | [address] | | | [place] [address] | + + + | Home Phone [...] | Author | [facility] [employer] (Historical as of | | | 06-16-19) | + + + | Organization | [facility] (Historical as of | | [...] Providers + +------+ + | Care Liquid Fertilizer Servicer Name | Role | Phone | + +------+ + | Romy De La Paz MD | PCP | | + +------+ + Encounter Details +--------+ + + + + | Date | Type | Department | Care Team | Description | +--------+ + + + + | 08/03/ | Hospital | [facility] | Maykel Hutchins MD | Postlaminectomy | | 2019 | Encounter | [facility] | [address] | syndrome, thoracic | | | | Operating Room [address] | [place] [address] | region; | | | | [address] | [phone] | Radiculopathy of | | | | [place] [address] | | thoracolumbar | | | | [phone] | | region; | | | | [...]
--- OUTSIDE RECORDS SUMMARY | ~2019-09-28 | XMS | Encounter Summary ---
Demographics + + + | Address | [address] | | | [place] [address] | + + + | Home Phone [...] Providers + +------+ + | Care Refrigeration System Installer Name | Role | Phone | [...] | | [address] | [place] [address] | | | | | [place] | [phone] | | | | | [address] | | | | | | [phone] | | | +--------+ + + + [...] [place] | | | | | | [address] | | | | | | | | +--------+---------+ + + + documented as of this encounter Visit Diagnoses Not on filedocumented in this encounter"
--- OUTSIDE RECORDS SUMMARY | ~2019-09-28 | XMS | Encounter Summary ---
Demographics + + + | Address | [address] | | | [place] [address] | + + + | Home Phone [...] Providers + +------+ + | Care Art Preparator Name | Role | Phone | + +------+ + | Miquel Calhoun MD | PCP | | + +------+ + Encounter Details +--------+ + + + + | Date | Type | Department | Care Team | Description | +--------+ + + + + | 09/17/ | Telephone | [facility] | Khushbu Cortez, | | | 2012 | | [facility] | CELL TESTER [place], [place] | | | | | [address] | [address] | | | | | [address] | | | | | | [address] | | | | | | [place], [place] | | | | | | [address] | | | | | | [phone] | | | +--------+ + + + [...]
--- OUTSIDE RECORDS SUMMARY | ~2019-09-28 | XMS | Encounter Summary ---
Demographics + + + | Address | [address] | | | [place] [address] | + + + | Home Phone [...] Team Providers + +------+ + | Care Slunk Skin Curer Name | Role | Phone | + +------+ + | Romy De La Paz MD | PCP | | + +------+ + Encounter Details +--------+ + + + + | Date | Type | Department | Care Team | Description | +--------+ + + + + | 07/18/ | Clinical | [facility] | | Radiculopathy of | | 2019 | Support | NEUROSURGERY [address] | | thoracolumbar | | | | [address] | | region; | | | | [place], [place] | | Postlaminectomy | | | | [address] | | syndrome, thoracic | | | | [phone] | | region | +--------+ + + [...] concerns feel free to call us at [phone]. documented in this encounter Progress Notes Niki [...] that she will on occasion run a [employer] ow grade fever and all tests and blood work come back negative infection, patient states she does have a history of UTI's as well. Patient was sent to [facility] for their scheduled pre-admit appointment, [...] [place] | | | | | | [id number] | | | | | | | | +--------+---------+ + + + documented as of this encounter Visit Diagnoses + + | Diagnosis | + + | Radiculopathy of thoracolumbar region Thoracic or lumbosacral neuritis or | | radiculitis, unspecified | + + | Postlaminectomy syndrome, thoracic region | + + documented in this encounter
--- OUTSIDE RECORDS SUMMARY | ~2019-09-28 | XMS | Encounter Summary ---
Demographics + + + | Address | [address] | | | [place] [address] | + + + | Home Phone [...] Team Providers + +------+ + | Care Phone Triage Specialist Name | Role | Phone | [...] + + | 11/01/ | Telephone | [facility] | Shay Dietz | Medication Problem | | 2012 | | PHYSIATRY [address] | | | | | [place], | [place], [place] | | | | | [place] [address] | [address] | | | | | [phone] | | | +--------+ + + + [...] [place] | | | | | | [address] | | | | | | | | +--------+---------+ + + + documented as of this encounter Visit Diagnoses + + | Diagnosis | + + | Back pain - Primary Backache, unspecified | + + documented in this encounter"
--- OUTSIDE RECORDS SUMMARY | ~2019-09-28 | XMS | Encounter Summary ---
Demographics + + + | Address | [address] | | | [place] [address] | + + + | Home Phone [...] + | Author | [facility] [employer] (Historical as of | | | 06-16-19) | + + + | Organization | [facility] (Historical as of | | [...] Providers + +------+ + | Care Warehouse Puller Name | Role | Phone | + +------+ + | Romy De La Paz MD | PCP | | + +------+ + Encounter Details +--------+ + + + + | Date | Type | Department | Care Team | Description | +--------+ + + + + | 08/03/ | Procedure | [facility] | | | | 2019 | Pass | Medical Center | | | | | | Operating Room [address] | | | | | | [facility] | | | | | | [place] [address] | | | | | | [phone] | | | +--------+ + + + [...]
--- OUTSIDE RECORDS SUMMARY | ~2019-09-28 | XMS | Encounter Summary ---
Demographics + + + | Address | [address] | | | [place] [address] | + + + | Home Phone [...] Providers + +------+ + | Care Police Commissioner Name | Role | Phone | [...] + + | 08/16/ | Office | [facility] | Gabi Guzman | S/P insertion of | | 2019 | Visit | [facility] | [address] | spinal cord | | | | ORTHOPEDIC SPINE | [address] | stimulator (Primary | | | | [address] | [place] [address] | Dx); DDD | | | | [place], [place] | [phone] | (degenerative disc | | | | [address] | | disease), lumbar; | | | | [phone] | | Facet arthritis of | | [...] accompanied by her friend, and the [employer] loan representative for the spinal cord stimulator, f or a 2 week post-op visit, following the T9-10 laminectomy for T8 placement of the spinal co rd stimulator paddle and right flank battery pack insertion, performed August 03, 2019. The [employer] agent has just programmed her device, currently [...] non-medical: Not on file Occupational History Occupation: [employer] Tobacco Use Smoking status: Never Smoker Smokeless [...] Procedure: KYPHOPLASTY; Surgeon: Alfredo Casillas DO; Location: [facility] MAIN OR; Service: Pa in Management; Laterality: N/A; L5 FRACTURE SURGERY ANKLE HERNIA REPAIR HYSTERECTOMY HYSTERECTOMY LAMINECTOMY N/A 08/03/2019 Procedure: LAMINOTOMY THORACIC / LUMBAR W/ PLACEMENT SPINAL CORD STIMULATOR; Surgeon: Suly Hutchins MD; Location: [facility] MA[facility] OTHER SURGICAL HISTORY EPIDURAL STEROID INJECTION OTHER SURGICAL HISTORY 08/28/2018 EPIDURAL STEROID INJECTION - LESI L4-L5 OTHER SURGICAL HISTORY 09/11/2018 EPIDURAL STEROID INJECTION - LESI L5-S1 OTHER SURGICAL HISTORY UNLISTED PROCEDURE ARTHROSCOPY SLING REMOVAL , BLADDER 2006 TUBAL LIGATION UPPER GASTROINTESTINAL ENDOSCOPY Past Medical History: Diagnosis Date Acid reflux disease Acute renal failure ([facility]) April 2013 Adverse effect of anesthesia hx hallucinations after anesthesia x 3 yrs ago. Anesthesia hallucinated after bladder repair Arthralgia Arthritis Asthma Asthma Back pain Cancer ([facility]) 2005 breast Cataract Cerebrovascular accident (CVA) ([facility]) no per pt Chronic back pain Chronic back pain Chronic constipation Concussion 07/2015 Preceeded by seizure Constipation COPD (chronic obstructive pulmonary disease) ([facility]) Degenerative disc disease Depression Depression Diabetes mellitus ([facility]) Diabetes mellitus, type 2 ([facility]) diet controlled Diabetes type 2, controlled (HCC) [...] [place] | | | | | | [address] | | | | | | | [...]
--- OUTSIDE RECORDS SUMMARY | ~2019-09-28 | XMS | Encounter Summary ---
Demographics + + + | Address | [address] | | | [place] [address] | + + + | Home Phone [...] Team Providers + +------+ + | Care News Photographer Name | Role | Phone | [...] | Pain | Diagnoses | Cr, | Microbiological Laboratory Technician Chh1 | | | | Management | PPS (pelvic | MD Britta | [address] | | | | | pain | [address] | [address] | | | | | syndrome) | [facility] | Mailcode: | | | | | Procedures | Rd | [facility] | | | | | CONSULT TO | [facility] [place] | for Health | | | | | PAIN CENTER | [address] | and Healing, | | | | | | Phone: | Building | | | | | | [phone] | 1,15th Floor | | | | | | Fax: | [place], [place] | | | | | | [phone] | [address] | | | | | | | Phone: | | | | | | | [phone] | | | | | | | Fax: | | | | | | | [phone] | +--------+--------+ + + + + Reason [...] | | | | | symptom | [address] | [address] | | | | | associated | [place] | Juliana Schulte | | | | | with female | Urology [address] | | | | | genital | [address] | [address] | | | | | organs | [address] [place], | [place], [place] | | | | | Unspecified | [place] [address] | [address] | | | | | urinary | Phone: | Phone: | | | | | incontinence | [phone] | [phone] | | | | | | Fax: | Fax: | | | | | | [phone] | [phone] | +--------+--------+ + + + + Encounter Details +--------+---------+ + + + | Date | Type | Department | Care Team | Description | +--------+---------+ + + + | 11/29/ | Office | [facility] | Britta Hankins MD | PPS (pelvic pain | | 2014 | Visit | [facility] [place] | [address] | syndrome) (Primary | | | | [address] | [address] [place], | Dx); Depression with | | | | [address] | [place] [address] | suicidal ideation; | | | | Aravind Hannon | [phone] | Recurrent UTI; | | | | [place], [place] | | Hypoestrogenism | | | | [address] | | | | | | [phone] | | | +--------+---------+ + + + [...] 4. Referral to pain service here at [facility] 5. Let me know if [...] (2 vag, 1 cs, she had to [facility] hospitalized after her second delivery for infection) seen at the request of Dr. Ck wan r pelvic pain and LUTs following pelvic reconstructive surgery. She is accompanied by her so sadiq Ball. He lives here in [place] so he is not fully aware of her recent health issues but h e did help in providing some of his mother's past history. 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 Long gold, she was hospitalized at [facility] in 2005 for a Vicodin [...] speaker, a good grandmother". Her physicians in [place] and elsewhere will not pre scribe pain [...] until she was able to leave her [place] [employer] house at age 20. Her aunt recently [...] estrogenization of the vulvova ginal tissues; negative AIRCRAFT ELECTRICAL SYSTEMS SPECIALIST; no hypospadias of the urethra; + [...] F/U with Dr. Stover on return to [place]. I am Christine Monterroso functioning as a scribe for Dr. Britta Hankins. Christine Monterroso [facility] [address] [place] [address] I have reviewed, verified, and amended the [...] for afternoon appointments. Britta Hankins M.D., FACS Framing Consultant [facility] documented in this encoun ter [...]
--- OUTSIDE RECORDS SUMMARY | ~2019-09-28 | XMS | Encounter Summary ---
Demographics + + + | Address | [address] | | | [place] [address] | + + + | Home Phone [...] Providers + +------+ + | Care Compressor Station Engineer Chief Name | Role | Phone | [...] [address] | | | | | [facility] [address] | [address] [facility], | | | 08/07/ | | [address]th [place], [place] | [place] [address] | | | 2004 | | [address] | [phone] | | | | | [phone] | | | +--------+ + + + [...] [place] | | | | | | [address] | | | | | | | | +--------+---------+ + + + documented as of this encounter Visit Diagnoses Not on filedocumented in this encounter"
--- OUTSIDE RECORDS SUMMARY | ~2019-09-28 | XMS | Encounter Summary ---
Demographics + + + | Address | [address] | | | [place] [address] | + + + | Home Phone [...] Providers + +------+ + | Care Assembler Engine Name | Role | Phone | + +------+ + | Wendi Aiken | PCP | | + +------+ + Encounter Details +--------+ + + + + | Date | Type | Department | Care Team | Description | +--------+ + + + + | 05/10/ | Imaging | [facility] | Provider, | | | 2018 | Exam | [facility] EXTER[facility] | [address] | | | | | IMAGING | [address] | | | | | [phone] | [place] [address] | | +--------+ + + + + [...] | | | | | | [address] [facility] | | | | | | [id number] | | | | | | | [...]
--- OUTSIDE RECORDS SUMMARY | ~2019-09-28 | XMS | Encounter Summary ---
Demographics + + + | Address | [address] | | | [place] [address] | + + + | Home Phone [...] +------+ + | Care Learning And Development Administrator Name | Role | Phone | + +------+ + PCP | Unavailable | + +------+ + Encounter Details +--------+ + + + + | Date | Type | Department | Care Team | Description | +--------+ + + + + | 09/07/ | Hospital | [facility] | | | | 1998 - | Encounter | MED CTR CAN[facility] | | | | | | ALEXEY Hernadez | | | | 10/30/ | | [place] | | | | 1998 | | [address] | | | | | | [phone] | | | +--------+ + + + [...] [place] | | | | | | [address] | | | | | | | | +--------+---------+ + + + documented as of this encounter Visit Diagnoses Not on filedocumented in this encounter"
--- OUTSIDE RECORDS SUMMARY | ~2019-09-28 | XMS | Encounter Summary ---
Demographics + + + | Address | [address] | | | [place] [address] | + + + | Home Phone [...] [address] | | | | | [place] [address], | [address] [place], | | | | | [place] [address] | [place] [address] | | | | | [phone] | [phone] | | | | | | | [...] [place] | | | | | | [address] | | | | | | | | +--------+---------+ + + + documented as of this encounter Visit Diagnoses Not on filedocumented in this encounter"
--- OUTSIDE RECORDS SUMMARY | ~2019-09-28 | XMS | Encounter Summary ---
Demographics + + + | Address | [address] | | | [place] [address] | + + + | Home Phone [...] Team Providers + +------+ + | Care Feather Curling Machine Operator Name | Role | Phone [...] + | 08/16/ | Office | [facility] | Gabi Guzman | S/P insertion of | | 2019 | Visit | [facility] | [address] | spinal cord | | | | ORTHOPEDIC SPINE | [address] | stimulator (Primary | | | | [address] | [place] [address] | Dx); DDD | | | | [place], [place] | [phone] | (degenerative disc | | | | [address] | | disease), lumbar; | | | | [phone] | | Facet arthritis of | | [...] accompanied by her friend, and the Akhtar service liaison representative for the spinal cord stimulator, f [...] non-medical: Not on file Occupational History Occupation: [employer] Tobacco Use Smoking status: Never Smoker Smokeless [...] Procedure: KYPHOPLASTY; Surgeon: Alfredo Casillas DO; Location: [facility]; Service: Pa in Management; Laterality: N/A; L5 FRACTURE SURGERY ANKLE HERNIA REPAIR HYSTERECTOMY HYSTERECTOMY LAMINECTOMY N/A 08/03/2019 Procedure: LAMINOTOMY THORACIC / LUMBAR W/ PLACEMENT SPINAL CORD STIMULATOR; Surgeon: Suly Hutchins MD; Location: [facility] OTHER SURGICAL HISTORY EPIDURAL STEROID [...] pain Cancer ([facility]) 2005 breast Cataract Cerebrovascular accident ([facility]) ([facility] [...] [place] | | | | | | [address] | | | | | | | [...]
--- OUTSIDE RECORDS SUMMARY | ~2019-09-28 | XMS | Encounter Summary ---
Demographics + + + | Address | [address] | | | [place] [address] | [...] Team Providers + +------+ + | Care Biological Science Technician Fish Name | Role | Phone | + [...] | [address] | [place], [address] | | | | | [address] [place], [place] | [place], [place] | | | | | [address] | [address] | | | | | [phone] | | | +--------+ + + + [...] [place] | | | | | | [address] | | | | | | | | +--------+---------+ + + + documented as of this encounter Visit Diagnoses Not on filedocumented in this encounter"
--- OUTSIDE RECORDS SUMMARY | ~2019-09-28 | XMS | Encounter Summary ---
Demographics + + + | Address | [address] | | | [place] [address] | + + + | Home Phone [...] Team Providers + +------+ + | Care Authorization Representative Name | Role | Phone | [...] + + | 07/03/ | Telephone | [facility] | Shay Dietz | Other (Called | | 2012 | | PHYSIATRY [address] | [address] | patient to discuss | | | | [place], | [place], [place] | options regarding | | | | [place] [address] | [address] | having another | | | | [phone] | | injection or having | | [...] [place] | | | | | | [address] | | | | | | | | +--------+---------+ + + + documented as of this encounter Visit Diagnoses Not on filedocumented in this encounter"
--- OUTSIDE RECORDS SUMMARY | ~2019-09-28 | XMS | Encounter Summary ---
Demographics + + + | Address | [address] | | | [place] [address] | + + + | Home Phone [...] | [facility] (Historical as of | | | 06-16-19) | + + + | Organization | [facility] (Historical as of | | | [...] Providers + +------+ + | Care Child Welfare Specialist Name | Role | Phone | + +------+ + | Romy De La Paz MD | PCP | | + +------+ + Encounter Details +--------+ + + + + | Date | Type | Department | Care Team | Description | +--------+ + + + + | 08/03/ | Hospital | [facility] | Maykel Hutchins MD | Postlaminectomy | | 2019 | Encounter | [facility] | [address] | syndrome, thoracic | | | | Operating Room [address] | [place] [address] | region; | | | | [address] | [phone] | Radiculopathy of | | | | [place] [address] | | thoracolumbar | | | | [phone] | | region; | | | | [...]
--- OUTSIDE RECORDS SUMMARY | ~2019-09-28 | XMS | Encounter Summary ---
Demographics + + + | Address | [address] | | | [place] [address] | + + + | Home Phone [...] Team Providers + +------+ + | Care Bulk Fluids Handler Name | Role | Phone | + +------+ + PCP | Unavailable | + +------+ + Encounter Details +--------+ + + + + | Date | Type | Department | Care Team | Description | +--------+ + + + + | 06/26/ | Respiratory | | Other, Faculty | | | 2006 | Therapy | | [phone] | | +--------+ + + + + [...] Hassan, | | | | | | VP INTEGRATION | | | | + + + [...] RADHA ALONZO | [address] | [place], [place] | | | DIAGNOSTICS - | [address] | [address] | | | PULMONARY FUNCTION | | | | + + + + + documented in this encounter Visit Diagnoses Not on filedocumented in this encounter"
--- OUTSIDE RECORDS SUMMARY | ~2019-09-28 | XMS | Encounter Summary ---
Demographics + + + | Address | [address] | | | [place] [address] | + + + | Home Phone [...] | + + +---------+ + | Giuseppe Menchcaa | ECON | Unknown | | + + +---------+ + | Nathalia Weinstein Tr ECON | Unknown | | + + +---------+ + Care Team Providers + +------+ + | Care Adjunct Physics Instructor Name | Role | Phone | + +------+ + | Concepción Gallardo NP | PCP | | + +------+ + Encounter Details +--------+ + + + + | Date | Type | Department | Care Team | Description | +--------+ + + + + | 11/26/ | Emergency | [facility] | Garth Pedroza MD | Convulsions, | | 2016 | | MEDICAL CENTER | [address] | unspecified | | | | EMERGENCY CENTER | [place] [address] | convulsion type | | | | [address] | [phone] | ([facility]); Generalized | | | | [place], [place] | | weakness | | | | [address] | | | | | | [phone] | | | +--------+ + + + [...] [place] | | | | | | [address] | | | | | | | [...] | | LAB | | | | [facility];[address] | | | [address];[place] [address] | | | | + + + + + + | Clarity | CLEARComment: Testing | | EXTERNAL | | | | performed at [facility];[address] | | LAB | | | | [address];[place] | | | | | | [address] | | | | + + + + + + | Specific | 1.008Comment: Testing | 1.002 - 1.030 | EXTERNAL | | | [place] | performed at [facility];[address] | | LAB | | | | [address];[place] | | | | | | [address] | | | | + + + + + + | Leukocyte | NEGATIVEComment: Testing | | EXTERNAL | | | Esterase, | performed at [facility];[address] | | LAB | | | Urine | [address];[place] | | | | | | [address] | | | | + + + + + + | Nitrite, | NEGATIVEComment: Testing | | EXTERNAL | | | Urine | performed at [facility];[address] | | LAB | | | | [address];[place] | | | | | | [address] | | | | + + + + + + | Urobilinoge | NORMALComment: Testing | mg/dL | EXTERNAL | | | n, Urine | performed at [facility];[address] | | LAB | | | | [address];[place] | | | | | | [address] | | | | + + + + + + | Protein, | NEGATIVEComment: Testing | mg/dL | EXTERNAL | | | Urine | performed at [facility];[address] | | LAB | | | | [address];[place] | | | | | | [address] | | | | + + + + + + | pH, Urine | 5.0Comment: Testing | 5.0 - 8.0 | EXTERNAL | | | | performed at [facility];[address] | | LAB | | | | [address];[place] | | | | | | [address] | | | | + + + + + + | Blood, | NEGATIVEComment: Testing | | EXTERNAL | | | Urine | performed at [facility];[address] | | LAB | | | | [address];[place] | | | | | | [address] | | | | + + + + + + | Ketones | NEGATIVEComment: Testing | mg/dL | EXTERNAL | | | | performed at [facility];[address] | | LAB | | | | [address];[place] | | | | | | [address] | | | | + + + + + + | Bilirubin, | NEGATIVEComment: Testing | | EXTERNAL | | | Urine | performed at [facility];[address] | | LAB | | | | [address];[place] | | | | | | [address] | | | | + + + + + + | Glucose, | NEGATIVEComment: Testing | mg/dL | EXTERNAL | | | Urine | performed at [facility];[address] | | LAB | | | | [address];[place] | | | | | | [address] | | | | + + + [...] EXTERNAL | | | | performed at [facility];[address] | K/uL | LAB | | | | [address];[place], [place] | | | | | | [address] | | | | + + + + + -+ | RED CELL | 4.61Comment: Testing | 3.70 - 5.10 | EXTERNAL | | | COUNT | performed at [facility];[address] | M/uL | LAB | | | | [address];[place] | | | | | | [address] | | | | + + + + + -+ | Hgb | 13.4Comment: Testing | 11.3 - 15.5 | EXTERNAL | | | | performed at [facility];888 | g/dL | LAB | | | | [address];[place] | | | | | | [address] | | | | + + + + + -+ | Hematocrit, | 40.4Comment: Testing | 34.0 - 46.0 % | EXTERNAL | | | POC | performed at [facility];[address] | | LAB | | | | [address];[place] | | | | | | [address] | | | | + + + + + -+ | MCV | 87.7Comment: Testing | 80.0 - 100.0 fl | EXTERNAL | | | | performed at [facility];[address] | | LAB | | | | [address];[place] | | | | | | [address] | | | | + + + + + -+ | MCH | 29.1Comment: Testing | 27.0 - 34.0 pg | EXTERNAL | | | | performed at [facility];[address] | | LAB | | | | [address];[place] | | | | | | [address] | | | | + + + + + -+ | MCHC | 33.2Comment: Testing | 32.0 - 35.5 | EXTERNAL | | | | performed at [facility];888 | g/dL | LAB | | | | [address];[place] | | | | | | [address] | | | | + + + + + -+ | RDW-CV | 39.8Comment: Testing | 37 - 53 fl | EXTERNAL | | | | performed at [facility];[address] | | LAB | | | | [address];[place] | | | | | | [address] | | | | + + + + + -+ | Platelet | 287Comment: Testing | 150 - 400 K/uL | EXTERNAL | | | Count | performed at [facility];[address] | | LAB | | | Plasma | [address];[place] | | | | | | [address] | | | | + + + + + -+ | MPV | 7.7Comment: Testing | fl | EXTERNAL | | | | performed at [facility];[address] | | LAB | | | | [address];[place] | | | | | | [address] | | | | + + + + + -+ | Differentia | AUTOMATEDComment: | | EXTERNAL | | | l Type | Testing performed at | | LAB | | | | [facility];[address];[place] [address] | | | | + + + + + -+ | % Segmented | 45.19Comment: Testing | % | EXTERNAL | | | | performed at [facility];[address] | | LAB | | | Neutrophils | [address];[place] | | | | | | [address] | | | | + + + + + -+ | % | 44.63Comment: Testing | % | EXTERNAL | | | Lymphocytes | performed at [facility];[address] | | LAB | | | | [address];[place] | | | | | | [address] | | | | + + + + + -+ | % Monocytes | 7.42Comment: Testing | % | EXTERNAL | | | | performed at [facility];[address] | | LAB | | | | [address];[place] | | | | | | [address] | | | | + + + + + -+ | % | 1.58Comment: Testing | % | EXTERNAL | | | Eosinophils | performed at [facility];[address] | | LAB | | | | [address];[place] | | | | | | [address] | | | | + + + + + -+ | % Basophils | 1.18Comment: Testing | % | EXTERNAL | | | | performed at [facility];[address] | | LAB | | | | [address];[place] | | | | | | [address] | | | | + + + + + -+ | Absolute | 3.08Comment: Testing | 1.90 - 7.40 | EXTERNAL | | | Segmented | performed at [facility];888 | K/uL | LAB | | | Neutrophils | [address];[place] | | | | | | [address] | | | | + + + + + -+ | Absolute | 3.04Comment: Testing | 1.00 - 3.90 | EXTERNAL | | | Lymphocytes | performed at [facility];[address] | K/uL | LAB | | | | [address];[place] | | | | | | [address] | | | | + + + + + -+ | Absolute | 0.51Comment: Testing | 0.00 - 0.80 | EXTERNAL | | | Monocytes | performed at [facility];[address] | K/uL | LAB | | | | [address];[place] | | | | | | [address] | | | | + + + + + -+ | Absolute | 0.11Comment: Testing | 0.00 - 0.50 | EXTERNAL | | | Eosinophils | performed at [facility];[address] | K/uL | LAB | | | | [address];[place] | | | | | | [address] | | | | + + + + + -+ | Absolute | 0.08Comment: Testing | 0.00 - 0.10 | EXTERNAL | | | Basophils | performed at [facility];[address] | K/uL | LAB | | | | [address];[place] | | | | | | [address] | | | | + + + + + -+ | Na | 139Comment: Testing | 135 - 143 | EXTERNAL | | | | performed at [facility];[address] | mmol/L | LAB | | | | [address];[place] | | | | | | [address] | | | | + + + + + -+ | K | 4.1Comment: SLT | 3.5 - 4.9 | EXTERNAL | | | | HEMOLYSISTesting | mmol/L | LAB | | | | performed at [facility];[address] | | | | | | [address];[place] | | | | | | [address] | | | | + + + + + -+ | Cl | 106Comment: Testing | 99 - 109 mmol/L | EXTERNAL | | | | performed at [facility];[address] | | LAB | | | | [address];[place] | | | | | | [address] | | | | + + + + + -+ | CO2 | 28Comment: Testing | 23 - 32 mmol/L | EXTERNAL | | | | performed at [facility];[address] | | LAB | | | | [address];[place] | | | | | | [address] | | | | + + + + + -+ | Anion Gap | 9Comment: Testing | 5 - 20 mmol/L | EXTERNAL | | | | performed at [facility];[address] | | LAB | | | | [address];[place] | | | | | | [address] | | | | + + + + + -+ | Glucose, | 78Comment: Testing | 65 - 99 mg/dL | EXTERNAL | | | Fasting | performed at [facility];[address] | | LAB | | | | [address];[place] | | | | | | [address] | | | | + + + + + -+ | BUN | 16Comment: Testing | 8 - 25 mg/dL | EXTERNAL | | | | performed at [facility];[address] | | LAB | | | | [address];[place] | | | | | | [address] | | | | + + + + + -+ | Creatinine | 0.82Comment: Testing | 0.50 - 1.00 | EXTERNAL | | | | performed at [facility];888 | mg/dL | LAB | | | | [address];[place] | | | | | | [address] | | | | + + + + + -+ | BUN/Creatin | 20Comment: Testing | | EXTERNAL | | | ine Ratio | performed at [facility];[address] | | LAB | | | | [address];[place] | | | | | | [address] | | | | + + + + + -+ | Calcium | 8.3 (L)Comment: Testing | 8.5 - 10.5 | EXTERNAL | | | | performed at [facility];888 | mg/dL | LAB | | | | [address];[place] | | | | | | [address] | | | | + + + + + -+ | Protein, | 7.3Comment: Testing | 6.3 - 8.2 g/dL | EXTERNAL | | | Total | performed at [facility];[address] | | LAB | | | | [address];[place] | | | | | | [address] | | | | + + + + + -+ | Albumin | 3.7Comment: Testing | 3.3 - 4.8 g/dL | EXTERNAL | | | | performed at [facility];[address] | | LAB | | | | [address];[place] | | | | | | [address] | | | | + + + + + -+ | Globulin | 3.6Comment: Testing | 1.3 - 4.9 g/dL | EXTERNAL | | | | performed at [facility];[address] | | LAB | | | | [address];[place] | | | | | | [address] | | | | + + + + + -+ | A/G Ratio | 1.0Comment: Testing | 1.0 - 2.4 | EXTERNAL | | | | performed at [facility];[address] | | LAB | | | | [address];[place] | | | | | | [address] | | | | + + + + + -+ | Bilirubin | 0.2Comment: Testing | 0.1 - 1.5 mg/dL | EXTERNAL | | | Total | performed at [facility];[address] | | LAB | | | | [address];[place] | | | | | | [address] | | | | + + + + + -+ | ALP, | 69Comment: Testing | 35 - 115 U/L | EXTERNAL | | | External | performed at [facility];[address] | | LAB | | | | [address];[place] | | | | | | [address] | | | | + + + + + -+ | AST | 22Comment: SLT | 10 - 45 U/L | EXTERNAL | | | | HEMOLYSISTesting | | LAB | | | | performed at [facility];[address] | | | | | | [address];[place] | | | | | | [address] | | | | + + + + + -+ | ALT | 31Comment: Testing | 10 - 65 U/L | EXTERNAL | | | | performed at [facility];[address] | | LAB | | | | [address];[place] | | | | | | [address] | | | | + + + [...] | | | | | | at [facility];[address] | | | [address];[place] [address] | | | | + + + + + -+ | CK, Total | 128Comment: Testing | 30 - 240 U/L | EXTERNAL | | | | performed at [facility] [place];[address] | | LAB | | | | [address];[place] | | | | | | [id number] | | | | + + + [...] | | | | | performed at [facility] [place];[address] | | | | | | [address];[place] | | | | | | [address] | | | | + + + + + -+ | aPTT, | 27Comment: Testing | 23 - 32 seconds | EXTERNAL | | | Patient | performed at [facility] [place];[address] | | LAB | | | | [address];[place] | | | | | | [address] | | | | + + + + + -+ | CK-MB | 3.2Comment: Testing | 0.5 - 3.6 ng/mL | EXTERNAL | | | | performed at [facility] [place];[address] | | LAB | | | | [address];[place] | | | | | | [address] | | | | + + + [...] | LAB | | | | [address];[place] | | | | | | [address] | | | | + + + [...]
--- OUTSIDE RECORDS SUMMARY | ~2019-09-28 | XMS | Encounter Summary ---
Demographics + + + | Address | [address] | | | [place] [address] | + + + | Home Phone [...] Providers + +------+ + | Care Marine Equipment Research Engineer Name | Role | Phone [...] + + | 08/06/ | Telephone | [facility] | Maykel Hutchins MD | Medication Question | | 2019 | | [facility] | [address] | | | | | ORTHOPEDIC SPINE | [place] | | | | | [address] [place] | [place] [address] | | | | | [place] | [phone] | | | | | [address] | | | | | | [phone] | | | +--------+ + + + [...] [place] | | | | | | [id number] | | | | | | | | +--------+---------+ + + + documented as of this encounter Visit Diagnoses Not on filedocumented in this encounter"
--- OUTSIDE RECORDS SUMMARY | ~2019-09-28 | XMS | Encounter Summary ---
Demographics + + + | Address | [address] | | | [place] [address] | + + + | Home Phone [...] Team Providers + +------+ + | Care Territory Account Executive Name | Role | Phone [...] + + | 04/17/ | Telephone | [facility] | Nick Martinez, | Other (Back Brace) | | 2017 | | PHYSIATRY [address] | PA-C [address] | | | | | [place], | [address] [place] | | | | | [place] [address] | [place] [address] | | | | | [phone] | [phone] | | | | | | | [...] [place] | | | | | | [address] | | | | | | | | +--------+---------+ + + + documented as of this encounter Visit Diagnoses Not on filedocumented in this encounter"
--- OUTSIDE RECORDS SUMMARY | ~2019-09-28 | XMS | Encounter Summary ---
Demographics + + + | Address | [address] | | | [place] [address] | + + + | Home Phone [...] Team Providers + +------+ + | Care Grey Goods Tester Name | Role | Phone | [...] | at [facility] [address] | [address] | new pt appt) | | | | Mcadams Brittany Mailcode: | [address] [facility] | | | | | [address] | [place] [address] | | | | | Health and Healing, | [phone] | | | | | [facility] [address] | | | | | | floor [place], [place] | | | | | | [address] | | | | | | [phone] | | | +--------+ + + + [...]
--- OUTSIDE RECORDS SUMMARY | ~2019-09-28 | XMS | Clinical Summary ---
Demographics + + + | Address | [address] | | | [place] [address] | + + + | Home Phone [...] Team Providers + +------+ + | Care Ruby Rails Developer Name | Role | Phone | [...] | | 19 | | | | [facility] current | [...] Overview: Added automatically from request for surgery [id number] | + + + + + | Spondylosis without myelopathy or radiculopathy, lumbosacral | 03/20/2019 | | region | | + + + + + | Overview: Added automatically from request for surgery [id number] | + + + + + | Chronic bilateral low back pain without sciatica | 03/20/2019 | + + + + + | Overview: Added automatically from request for surgery [id number] | + + + + + | Intervertebral disc disorders with radiculopathy, lumbosacral | 02/25/2019 | | region | | + + + + + | Overview: Added automatically from request for surgery [id number] | + + + + + | Chronic low back pain with sciatica | 02/25/2019 | + + + + + | Overview: Added automatically from request for surgery [id number] | + + + + + | Lumbar region somatic dysfunction | 02/25/2019 | + + + + + | Overview: Added automatically from request for surgery [id number] | + + + + + | Strain of lumbar region | 02/25/2019 | + + + + + | Overview: Added automatically from request for surgery [id number] | + + + + + | Spinal stenosis of lumbosacral region | 02/25/2019 | + + + + + | Overview: Added automatically from request for surgery [id number] | + + + + + | [...] Overview: Added automatically from request for surgery [id number] | | Problem List Lead Teacher Utility | + + + + + [...] + +---+ + + | Overview: CHRISKeven [id number] Decision | + + + +---+ | [...] + + | Brother | | | [place] | | | | (Age | | [...] [place] | | | | | | [address] | | | | | | | [...] | | [birth year]/04[birth year] | [id number] | | [id number]: Qty: 1 | ogical | Spine | MEDICAL - | | 2020 | S | | on 08/03/2019 by Cuong, | | Lumbar | MODESTA | | | /[id number] | | MD Maykel at [facility] | Stimul | | | | | 444 | | [facility] | ator | | | | [...] | | 11/23/ | [id number] | | [id number]: Qty: 1 on | | | MEDICAL - | | 2020 | S | | 03/28/2019 by Sonja, | | | STJU | | | /[id number] | | DO Alfredo | | | | | | 330 / | + +--------+--------+ +--------+--------+--------+ | Proclaim 5 EliteImplanted: | | N/A: | ST CASEY | | 01/15/ | 3660 | | Qty: 1 on 08/03/2019 by Cuong, | | Spine | MEDICAL - | 2020 | /[id number] | | MD Maykel at [facility] | | Lumbar | STJU | | | 6.1 | | [facility] | | | | | | [...] | | | Needs | | | SAP PORTAL CONSULTANT | | | reques | | | [...] Testing | 65 - 99 mg/dL | [facility] | | | POC | performed at [facility];[address] | | LABORATORY | | | | Rosenda Donnelly;[place] | | | | | | [address] | | | | + + + + + + + + | Specimen | + + | | + + + + + + + | Performing | Address | City/State/Zipcode | Phone Number | | Organization | | | | + + + + + | [facility] | [address] | [place] [address] | [phone] | + + + + + LINSEY [...] - 08/03/2019 9:52 AM PDT Anesthesia Airway Hvsmbdgfq68/4/2019 | | 9:33Preprocedure check: patient identified, oxygen, [...] + + + | BB BAND | [id number] | | [facility] | | | | | | LABORATORY | | + + + + + + | BB BAND | Testing performed at | | [facility] | | | | [facility];[address] | | LABORATORY | | | | Andrzej;[place] [address] | | | | + + + + + + + + | Specimen | + + | Blood | + + + + + + + | Performing | Address | City/State/Zipcode | Phone Number | | Organization | | | | + + + + + | [facility] | [address] | [place] [address] | [phone] | + + + + + XR [...] [facility] | | | | performed at [facility];[address] | | LABORATORY | | | | Rosenda Donnelly;[place] | | | | | | [address] | | | | + + + + + + + + | Specimen | + + | Tissue - Both | | anterior nares (body | | structure) | + + + + + + + | Performing | Address | City/State/Zipcode | Phone Number | | Organization | | | | + + + + + | [facility] | [address] | [place] [address] | [phone] | + + + + + PTT (07/18/2019 2:26 PM PDT) + + + + + + | Component | Value | Ref Range | Performed | Pathologist | | | | | At | Signature | + + + + + + | PTT | 29Comment: Testing | 23 - 32 seconds | [facility] | | | | performed at [facility];[address] | | LABORATORY | | | | Rosenda Donnelly;[place] | | | | | | [address] | | | | + + + + + + + + | Specimen | + + | Blood | + + + + + + + | Performing | Address | City/State/Zipcode | Phone Number | | Organization | | | | + + + + + | [facility] | [address] | [place] [address] | [phone] | + + + + + Protime [...] | | | | | performed at [facility];88 | | | | | | Rosenda Donnelly;[place], [place] | | | | | | [address] | | | | + + + + + + + + | Specimen | + + | Blood | + + + + + + + | Performing | Address | City/State/Zipcode | Phone Number | | Organization | | | | + + + + + | [facility] | [address] | [place] [address] | [phone] | + + + + + CBC [...] | | | Absolute | performed at [facility], [address] | K/uL | LABORATORY | | | | Josue Donnelly, | | | | | | [place] [address] | | | | + + + + + + + + | Specimen | + + | Blood | + + + + + + + | Performing | Address | City/State/Zipcode | Phone Number | | Organization | | | | + + + + + | [facility] | [address] | [place] [address] | [phone] | + + + + + Comprehensive [...] | >60Comment: GFR <60: | >60 | [facility] | | | GFR | CHRONIC KIDNEY [...] | | | | | | MDRD IDMI traceable | | | | | | equation.Testing | | | | | | performed at [facility], [address] | | | | | | [facility], | | | | | | [place] [address] | | | | + + + + + + + + | Specimen | + + | Blood | + + + + + + + | Performing | Address | City/State/Zipcode | Phone Number | | Organization | | | | + + + + + | [facility] | [address] | [place] [address] | [phone] | + + + + + ECG [...] +---------+--------+ | INDIVIDUAL ASSURANCE | INDIVI | [id number] | | | | Indemn | | [...] +--------+ +---------+--------+ | MEDICARE | MEDICA | [id number] | | [phone] | | Medica | | | RE | | 991-Pr | 5 | | re | | | PART A | | esent | | | | | | AND B | | | | | | + +--------+ +--------+ +---------+--------+ | MEDICARE | MEDICA | [id number] | | [phone] | | Medica | | | RE | | 991-Pr | 5 | | re | | | PART A | | esent | | | | | | AND B | | | | | | + +--------+ +--------+ +---------+--------+ | MEDICARE | MEDICA | [id number] | | [phone] | | Medica | | | RE | | 991-Pr | 5 | | re | | | PART A | | esent | | | | | | AND B | | | | | | + +--------+ +--------+ +---------+--------+ | MEDICARE | MEDICA | [id number] | | [phone] | | Medica | | | RE | | 991-Pr | 5 | | re | | | PART A | | esent | | | | | | AND B | | | | | | + +--------+ +--------+ +---------+--------+ | INDIVIDUAL ASSURANCE | INDIVI | [id number] | | | | Indemn | | [...] +---------+--------+ | INDIVIDUAL ASSURANCE | INDIVI | [id number] | | | | Indemn | | [...] +---------+--------+ | INDIVIDUAL ASSURANCE | INDIVI | [id number] | | | | Indemn | | [...] | 1945 | [phone] | [place] [address] | | | jose | | | 8 (Home) | | + +--------+ +--------+ + + | Tyrese Rubio | Person | Self | [birth year] | [address] | | mandeep Harshal | al/Fam | | 1945 | [phone] | [place] [address] | | | jose | | | 8 (Home) | | + +--------+ +--------+ + + | Tyrese Rubio | Person | Self | [birth year] | [address] | | mandeep Harshal | al/Fam | | 1945 | [phone] | [place] [address] | | | jose | | | 8 (Home) | | + +--------+ +--------+ + + | Tyrese Rubio | Person | Self | [birth year] | [address] | | mandeep Harshal | al/Fam | | 1945 | [phone] | [place] [address] | | | jose | | | 8 (Home) | | + +--------+ +--------+ + + Advance Directives + + + + + | Type | Date Recorded | Patient | Explanation | | | | Labor Trainer | | + + + + + | Power of | | | | | Special Services Supervisor | | | | + + + [...]
--- OUTSIDE RECORDS SUMMARY | ~2019-09-28 | XMS | Encounter Summary ---
Demographics + + + | Address | [address] | | | [place] [address] | + + + | Home Phone [...] Team Providers + +------+ + | Care Plant Manager Name | Role | Phone | [...] Provider Unknown | | | | | [place], [place] | | | | | | [address] | (Fax) | | | | | [phone] | | | +--------+ + + + [...] [place] | | | | | | [id number] | | | | | | | [...]
--- OUTSIDE RECORDS SUMMARY | ~2019-09-28 | XMS | Encounter Summary ---
Demographics + + + | Address | [address] | | | [place] [address] | + + + | Home Phone [...] Team Providers + +------+ + | Care Cytology Teacher Name | Role | Phone | [...] [facility] [address] | [address] | medical records from | | | | Abbe Soto Mailcode: | [address] [place], | [facility] in | | | | [facility] for | [place] [address] | [facility] | | | | [facility], | [phone] | in [facility] | | | | [facility] | | Ant | | | | floor [place], [place] | | | | | | [address] | | | | | | [phone] | | | +--------+ + + + [...]
--- OUTSIDE RECORDS SUMMARY | ~2019-09-28 | XMS | Encounter Summary ---
Demographics + + + | Address | [address] | | | [place] [address] | + + + | Home Phone [...] Providers + +------+ + | Care Sheet Rock Layer Name | Role | Phone | + +------+ + | Romy De La Paz MD | PCP | | + +------+ + Encounter Details +--------+ + + + + | Date | Type | Department | Care Team | Description | +--------+ + + + + | 07/17/ | Prep for | [facility] | Maykel Hutchins MD | Chronic low back | | 2019 | Procedure | [facility] | [address] | pain with sciatica, | | | | ORTHOPEDIC SPINE | [facility], | sciatica laterality | | | | [address] [place] | [place] [address] | unspecified, | | | | [facility] [place] | [phone] | unspecified back | | | | [address] | | pain laterality | | | | [phone] | | (Primary Dx); Right | | [...] [place] | | | | | | [address] | | | | | | | [...]
--- OUTSIDE RECORDS SUMMARY | ~2019-09-28 | XMS | Encounter Summary ---
Demographics + + + | Address | [address] | | | [place] [address] | + + + | Home Phone [...] Team Providers + +------+ + | Care Agricultural Service Worker Name | Role | Phone | [...] | | | | CENTER [address] | [place] | Dx) | | | | [place] | [id number] | | | | | [address] | | | | | | [phone] | | | +--------+ + + + [...] [place] | | | | | | [address] | | | | | | | [...]
--- OUTSIDE RECORDS SUMMARY | ~2019-09-28 | XMS | Encounter Summary ---
Demographics + + + | Address | [address] | | | [place] [address] | + + + | Home Phone [...] Providers + +------+ + | Care Financial Legal Assistant Name | Role | Phone | + +------+ + PCP | Unavailable | + +------+ + Encounter Details +--------+ + + + + | Date | Type | Department | Care Team | Description | +--------+ + + + + | 09/07/ | Hospital | [facility] | | | | 1998 - | Encounter | [facility] | | | | | | ALEXEY Hernadez | | | | 10/30/ | | [place] | | | | 1998 | | [address] | | | | | | [phone] | | | +--------+ + + + [...] [place] | | | | | | [address] | | | | | | | | +--------+---------+ + + + documented as of this encounter Visit Diagnoses Not on filedocumented in this encounter"
--- OUTSIDE RECORDS SUMMARY | ~2019-09-28 | XMS | Encounter Summary ---
Demographics + + + | Address | [address] | | | [place] [address] | + + + | Home Phone [...] Team Providers + +------+ + | Care Regroover Name | Role | Phone | + +------+ + | Oxana Nye | PCP | | + +------+ + Encounter Details +--------+------+ + + + | Date | Type | Department | Care Team | Description | +--------+------+ + + + | 03/09/ | Lab | Laboratory at [facility] | | Chest pain, | | 2015 | | [address] | | unspecified type | | | | [place], [place] | | | | | | [address] | | | | | | [phone] | | | +--------+------+ + + + [...] NON-HDL | 54 | <=130 mg/dL | [facility] LIPID | | | CHOLESTEROL | [...] | + + + + + | [facility] LIPID LAB | [address] | [place], [place] | | | | [address] | [address] | | + + + + + documented in this encounter Visit Diagnoses + + | Diagnosis | + + | Chest pain, unspecified type | + + documented in this encounter"
--- OUTSIDE RECORDS SUMMARY | ~2019-09-28 | XMS | Encounter Summary ---
Demographics + + + | Address | [address] | | | [place] [address] | + + + | Home Phone [...] Team Providers + +------+ + | Care Hematology Technologist Name | Role | Phone | [...] Vasquez VALDEZ | | | | | [phone] | [place] [address] | | +--------+ + + + + [...] | | | | | | [facility] [facility] | | | | | | [id number] | | | | | | | [...]
--- OUTSIDE RECORDS SUMMARY | ~2019-09-28 | XMS | Encounter Summary ---
Demographics + + + | Address | [address] | | | [place] [address] | + + + | Home Phone [...] [address] | | | | | [place], | [place], [place] | | | | | [place] [address] | [address] | | | | | [phone] | | | +--------+ + + + [...] [place] | | | | | | [address] | | | | | | | | +--------+---------+ + + + documented as of this encounter Visit Diagnoses Not on filedocumented in this encounter"
--- OUTSIDE RECORDS SUMMARY | ~2019-09-28 | XMS | Encounter Summary ---
Demographics + + + | Address | [address] | | | [place] [address] | + + + | Home Phone [...] Team Providers + +------+ + | Care Apprentice Name | Role | Phone | + +------+ + | Romy De La Paz MD | PCP | | + +------+ + Encounter Details +--------+---------+ + + + | Date | Type | Department | Care Team | Description | +--------+---------+ + + + | 09/17/ | Office | [facility] | Denys Sibley G, | S/P insertion of | | 2018 | Visit | [facility] | DO [address] | spinal cord | | | | [address] [place], [place] | stimulator (Primary | | | | [address] [place] | [address] | Dx); Spinal stenosis | | | | [place], [place] | | of lumbosacral | | | | [address] | | region; Lumbar | | | | [phone] | | region somatic | | | [...] anterior chest wall ever y 72 hours. [place] 10/325 1 p.o. every 6 hours as [...] including but not limited to physical therapy, acute care nurse practitioner, acupuncture, massage therapy, and [...] general activity) Total score: (Printable questionnaires in [place] [employer] ) Interpretation of Total Score: PEG scores are used to track changes over time. It should de crease after therapy has begun. Last 4 PEG Scores: No flowsheet data found. Opioid Risk Tool (ORT): Total Score Pulse: 78 Resp: 16 BP: 102/52 SpO2: 98 % (From Chronic Pain tab; printable questionnaires in [place] Citizen) Interpretation of Total Score: 0 to 3 [...] Acid reflux disease Acute renal failure ([facility]) April 2013 Adverse effect of anesthesia hx hallucinations after anesthesia x 3 yrs ago. Anesthesia hallucinated after bladder repair Arthralgia Arthritis Asthma Asthma Back pain Cancer ([facility]) 2004 breast Cataract Cerebrovascular accident (CVA) ([facility]) no per pt Chronic back pain Chronic back pain Chronic constipation Concussion 07/2015 Preceeded by seizure Constipation COPD (chronic obstructive pulmonary disease) ([facility]) Degenerative disc disease Depression Depression Diabetes mellitus ([facility]) Diabetes mellitus, type 2 ([facility]) diet controlled Diabetes type 2, controlled ([facility]) diet controlled Diarrhea Disorder of [...] Scoliosis of lumbar spine 04/17/2014 Seizure ([facility]) one due to meds, two [...] Arthritis Asthma Asthma Back pain Cancer ([facility]) 2004 breast Cataract Cerebrovascular accident (CVA) ([facility]) no per pt Chronic back pain Chronic back pain Chronic constipation Concussion 07/2015 Preceeded by seizure Constipation COPD (chronic obstructive pulmonary disease) ([facility]) Degenerative disc disease Depression Depression Diabetes mellitus (HCC) Diabetes mellitus, type 2 (HCC) diet controlled Diabetes type 2, controlled ([facility]) diet controlled Diarrhea Disorder of [...] CORD STIMULATOR; Surgeon: Suly Hutchins MD; [place] [facility] [place] OTHER [place]GICAL HISTORY [...] reviewed, listed controlled substances are consistent with [facility] prescriptions and patient reported use. Controlled [...] than left and will follow up with instructional support specialist I believe regarding the shoulder pain [...] imited to physical therapy, massage therapy, acupuncture, acute care nurse practitioner, along with niki mmended psychological counseling, either privately, or in group sessions offered by private care individuals, community services, or gnosticist organizations. Appropriate referrals were made at patient [...] are noted in men and women. Ma ky men will suffer erectile dysfunction with these [...] and complications with the passage of time. termite exterminator helper use is also associated with depressions, and liver and renal failure. Finally, these medicines are associated with both physical and emotional addiction and can be difficult to stop after taking for only a few weeks. This document has been created using [employer] Voice Recognition software and [employer] games. The entry has been reviewed for content and accuracy, but there may still exist "sound alike" canvas cutter machine word errors and/or unintended additions and deletions. [...] [place] | | | | | | [address] | | | | | | | [...]
--- OUTSIDE RECORDS SUMMARY | ~2019-09-28 | XMS | Encounter Summary ---
Demographics + + + | Address | [address] | | | [place] [address] | + + + | Home Phone [...] Team Providers + +------+ + | Care Tree And Shrub Worker Name | Role | Phone | [...] | Lumbar | [place], | [address] | | | | | spondylosis | Shay Mukherjee MD | [place], | | | | | Right hip | [address] | [place] | | | | | pain | [place] | [address] | | | | | Procedures | [place], [place] | Phone: | | | | | [place] | [address] | [phone] | | | | | DX/THER AGNT | Phone: | Fax: | | | | | [place] | [phone] | [phone] | | | | | FACET JOINT, | Fax: | | | | | | LUMBAR/SAC, | [phone] | | | | | | 1ST LEVEL | | | | | | | [place] | | | | | | | [place] | | | | | | | E ACET INJ | | | | | | | NOS, 10 MG | | | | | | | [place] | | | | | | [...] + + | 02/08/ | Hospital | [facility] | Spenser, | Trochanteric | | 2016 | Encounter | MED CTR XRAY [address] | [address] | bursitis of right | | | | [place] | [facility], | hip (Primary Dx); | | | | [place] [address] | [place] [address] | Chronic bilateral | | | | [phone] | [phone] | low back pain with | | | | | | right-sided | | | | | Cost Clerk, [place] | sciatica; Facet | | [...] [place] | | | | | | [address] | | | | | | | [...] Bursa Injection Diagnosis: Lumbar Spondylosis and | [facility] | | Trochanteric Bursitis ICD-10 Code M47.816 and ICD-10 [facility] | | Harshal Rubio presents to the [...] ST. | [address] | [place] | [phone] | | [facility] | | [address] | | | - IMAGING | | [...]
--- OUTSIDE RECORDS SUMMARY | ~2019-09-28 | XMS | Encounter Summary ---
Demographics + + + | Address | [address] | | | [place] [address] | + + + | Home Phone [...] Team Providers + +------+ + | Care Hemming And Tacking Machine Operator Name | Role | Phone | + +------+ + | No, Physician | PCP | Unavailable | + +------+ + Encounter Details +--------+ + + + + | Date | Type | Department | Care Team | Description | +--------+ + + + + | 03/05/ | Orders Only | [facility] [place] | Eemrita Morrow, | Lumbar radiculopathy | | 2013 | | PHYSIATRY [address] | SAMPLE BODY BUILDER | (Primary Dx) | | | | [place], | | | | | | [place] [address] | | | | | | [phone] | | | +--------+ + + + [...] [place] | | | | | | [address] | | | | | | | [...] ICD-9 Code 724.4 Ms. Sheikh | [facility] | | Joanne presents to the fluoroscopy suite for a [facility] | | fluoroscopically-guided left L5-S1 transforaminal epidural [...] [address] | [place] | [phone] | | [facility] | | [address] | | | - IMAGING | | | | + + + + + documented in this encounter Visit Diagnoses + + | Diagnosis | + + | Lumbar radiculopathy - Primary Thoracic or lumbosacral neuritis or radiculitis, | | unspecified | + + documented in this encounter"
--- OUTSIDE RECORDS SUMMARY | ~2019-09-28 | XMS | Encounter Summary ---
Demographics + + + | Address | [address] | | | [place] [address] | + + + | Home Phone [...] Team Providers + +------+ + | Care Refrigerating Technician Name | Role | Phone | [...] + + | 04/03/ | Telephone | [facility] | Nick [place], | Medication Question | | 2017 | | PHYSIATRY [address] | PA-C [address] | | | | | [place], | [address] [place] | | | | | [place] [address] | [place] [address] | | | | | [phone] | [phone] | | | | | | | [...] [place] | | | | | | [address] | | | | | | | | +--------+---------+ + + + documented as of this encounter Visit Diagnoses Not on filedocumented in this encounter"
--- OUTSIDE RECORDS SUMMARY | ~2019-09-28 | XMS | Encounter Summary ---
Demographics + + + | Address | [address] | | | [place] [address] | + + + | Home Phone [...] Team Providers + +------+ + | Care Pageant Director Name | Role | Phone | [...] Chronic low | [place], | [address] | | | | | back pain | Shay Mukherjee MD | [place], | | | | | Lumbar | [address] | [place] | | | | | radiculopath | [place] | [address] | | | | | y | [place], [place] | Phone: | | | | | Procedures | [address] | [phone] | | | | | MRI Lumbar | Phone: | Fax: | | | | | Spine wo | [phone] | [phone] | | | | | Contrast | Fax: | | | | | | MRI | [phone] | | +--------+--------+ + + + + [...] Chronic low | [place], | [address] | | | | | back pain | Shay Mukherjee MD | [place], | | | | | Lumbar | [address] | [place] | | | | | radiculopath | [place] | [address] | | | | | y | [place], [place] | Phone: | | | | | Procedures | [address] | [phone] | | | | | MRI Lumbar | Phone: | Fax: | | | | | Spine wo | [phone] | [phone] | | | | | Contrast | Fax: | | | | | | MRI | [phone] | | +--------+--------+ + + + + Encounter Details +--------+ + + + + | Date | Type | Department | Care Team | Description | +--------+ + + + + | 04/12/ | Hospital | [facility] | Shay Dietz | Chronic low back | | 2013 | Encounter | MED CTR MRI [address] | T, [address] | pain; Lumbar | | | | [address] [place], | [place], [place] | radiculopathy | | | | [place] [address] | [address] | | | | | [phone] | | | +--------+ + + + [...] [place] | | | | | | [address] | | | | | | | [...] + | MISCELLANEOUS LAB | | | [phone] | + +---------+ + + | MISCELANIOUS LAB | | | [phone] | + +---------+ + + documented in this encounter Visit Diagnoses + + | Diagnosis | + + | Chronic low back pain Lumbago | + + | Lumbar radiculopathy Thoracic or lumbosacral neuritis or radiculitis, unspecified | + + documented in this encounter"
--- OUTSIDE RECORDS SUMMARY | ~2019-09-28 | XMS | Encounter Summary ---
Demographics + + + | Address | [address] | | | [place] [address] | + + + | Home Phone [...] Providers + +------+ + | Care Post Hole Digging Machine Operator Name | Role | Phone [...] | 2016 | | at [facility] [address] | [address] | new pt appt) | | | | [place] Mailcode: | [address] [facility] | | | | | [address] | [place] [address] | | | | | Health and Healing, | [phone] | | | | | [facility] | | | | | | floor [place], [place] | | | | | | [address] | | | | | | [phone] | | | +--------+ + + + [...]
--- OUTSIDE RECORDS SUMMARY | ~2019-09-28 | XMS | Encounter Summary ---
Demographics + + + | Address | [address] | | | [place] [address] | + + + | Home Phone [...] Author + + + | Author | [facility] | + + + | Organization | [facility] | + + + | Address | Unknown | + + + | Phone | Unavailable | + + + Support + + +---------+ + | Name | Relationship | Address | Phone | + + +---------+ + | Royce Menchaca | ECON | Unknown | | + + +---------+ + Care Team Providers + +------+ + | Care Director Marketing Analytics Name | Role | Phone | + [...] 2016 | Encounter | at [facility] [address] | [address] | test results | | | | Abbe Soto Mailcode: | [facility] [address] [place], | | | | | [address] | [place] [address] | | | | | Health and Healing, | [phone] | | | | | [place] [address] [facility] | | | | | | floor [place], [place] | | | | | | [address] | | | | | | [phone] | | | +--------+ + + + [...]
--- OUTSIDE RECORDS SUMMARY | ~2019-09-28 | XMS | Encounter Summary ---
Demographics + + + | Address | [address] | | | [place] [address] | + + + | Home Phone [...] Providers + +------+ + | Care Metal Rolling Mill Operator Name | Role | Phone [...] Vasquez VALDEZ | | | | | [phone] | [place] [address] | | +--------+ + + + + [...] | | | | | [facility] [place] | | | | | | [address] | | | | | | | [...]
--- OUTSIDE RECORDS SUMMARY | ~2019-09-28 | XMS | Encounter Summary ---
Demographics + + + | Address | [address] | | | [place] [address] | + + + | Home Phone [...] Team Providers + +------+ + | Care Sports Book Server Name | Role | Phone | [...] | MRI Lumbar | [place], | [address] | | | | | Spine wo | [place] [address] | Phone: | | | | | Contrast | Phone: | [phone] | | | | | | [phone] | Fax: | | | | | | Fax: | [phone] | | | | | | [phone] | | +--------+--------+ + + + + Reason for Visit + + + | Reason | Comments | + + + | Follow-up | Discuss Injections | + + + Encounter Details +--------+---------+ + + + | Date | Type | Department | Care Team | Description | +--------+---------+ + + + | 04/03/ | Office | [facility] | Juan, Nick, | Lumbar radiculopathy | | 2018 | Visit | PHYSIATRY [address] | PA-C [address] | (Primary Dx); BACK | | | | [place], | [address] [place] | PAIN, LUMBAR; | | | | [place] [address] | [place] [address] | SACROILIITIS; DDD | | | | [phone] | [phone] | (degenerative disc | | | | [...] the procedure you must provide a shuttle truck driver to take you home. For [...] press against a nerve. Date Last Reviewed: 08/03/201519990481-8519 [employer] [place] [address], [place] [address]. All righ ts reserved. This information is [...] and working more hours due to the [employer] Round up. Her pain ba ck is [...] has no apparent deficits with short or truck terminal manager memory. She has appropriate fund [...] [place] | | | | | | [address] | | | | | | | [...]
--- OUTSIDE RECORDS SUMMARY | ~2019-09-28 | XMS | Encounter Summary ---
Demographics + + + | Address | [address] | | | [place] [address] | + + + | Home Phone [...] Team Providers + +------+ + | Care Graphic Art Designer Name | Role | Phone | [...] | | [address] [place] | [place] [address] | | | | | [place], [place] | [phone] | | | | | [address] | | | | | | [phone] | | | +--------+ + + + [...] [place] | | | | | | [address] | | | | | | | | +--------+---------+ + + + documented as of this encounter Visit Diagnoses Not on filedocumented in this encounter"
--- OUTSIDE RECORDS SUMMARY | ~2019-09-28 | XMS | Encounter Summary ---
Demographics + + + | Address | [address] | | | [place] [address] | + + + | Home Phone [...] Providers + +------+ + | Care Fire Sprinkler Designer Name | Role | Phone | [...] + + | 04/10/ | Telephone | [facility] | Nick Martinez, | Medication Prior | | 2017 | | PHYSIATRY [address] | PA-C [address] | Authorization | | | | [place], | [address] [place] | (Lidocaine Patch ) | | | | [place] [address] | [place] [address] | | | | | [phone] | [phone] | | | | | | | [...] [place] | | | | | | [address] | | | | | | | | +--------+---------+ + + + documented as of this encounter Visit Diagnoses Not on filedocumented in this encounter"
--- OUTSIDE RECORDS SUMMARY | ~2019-09-28 | XMS | Encounter Summary ---
Demographics + + + | Address | [address] | | | [place] [address] | + + + | Home Phone [...] Team Providers + +------+ + | Care Tractor Trailer Truck Driver Name | Role | Phone | + +------+ + | Romy De La Paz MD | PCP | | + +------+ + Encounter Details +--------+ + + + + | Date | Type | Department | Care Team | Description | +--------+ + + + + | 07/18/ | Hospital | [facility] | Maykel Hutchins MD | | | 2019 | Encounter | [facility] XRAY | [address] | | | | | [address] | [place], | | | | | [place], [place] | [place] [address] | | | | | [address] | [phone] | | | | | [phone] | | | +--------+ + + + [...] Decreased | | | | | | superintendent 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
--- OUTSIDE RECORDS SUMMARY | ~2019-09-28 | XMS | Encounter Summary ---
Demographics + + + | Address | [address] | | | [place] [address] | + + + | Home Phone [...] Team Providers + +------+ + | Care Joiners Supervisor Name | Role | Phone | + +------+ + | Miquel Calhoun MD | PCP | | + +------+ + Encounter Details +--------+ + + + + | Date | Type | Department | Care Team | Description | +--------+ + + + + | 11/29/ | Documentati | [facility] | Khushbu Cortez, | | | 2013 | on | [facility] | REFRIGERATION INSTALLER [place], [place] | | | | | [address] | [address] | | | | | [address] | | | | | | Aravind Hannon | | | | | | [facility] [place] | | | | | | [address] | | | | | | [phone] | | | +--------+ + + + [...]
--- OUTSIDE RECORDS SUMMARY | ~2019-09-28 | XMS | Encounter Summary ---
Demographics + + + | Address | [address] | | | [place] [address] | + + + | Home Phone [...] Team Providers + +------+ + | Care Staple Cutter Name | Role | Phone | + +------+ + | Wendi Aiken | PCP | | + +------+ + Encounter Details +--------+ + + + + | Date | Type | Department | Care Team | Description | +--------+ + + + + | 04/07/ | Imaging | [facility] | Provider, | | | 2018 | Exam | MED CTR EXTERNAL | [address] | | | | | IMAGING | [place]Z | | | | | [phone] | [place] [address] | | +--------+ + + + + [...] | | | | | | [facility] [place] | | | | | | [address] | | | | | | | [...]
--- OUTSIDE RECORDS SUMMARY | ~2019-09-28 | XMS | Encounter Summary ---
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 Removed Ranitidine and Myrbetriq from med list as these have not been filled in the last 3 months. Please see [facility] med list for updated medication list. Electronically [...] [place] | | | | | | [id number] | | | | | | | [...] L?MRN: | | | | | | [id number] | | | [id number] | | | ecurit | | | [...] | | | St. | | | [place] | | | y | | | [...] | | | St. | | | [place] | | | y H. | | [...] | | | St. | | | [place] | | | y H. | | [...] | | | St. | | | [place] | | | y H. | | [...] | | | St. | | | [place] | | | y H. | | [...] | | | St. | | | [place] | | | y H. | | [...] | | | St. | | | [place] | | | y H. | | [...] | | | St. | | | [place] | | | y | | | [...] | | | L | | | FIELD STAFF MANAGER | | | , MD 2 [...] + + | [facility] | [address] | [place] [address] | [phone] | | HOSPITAL LAB[facility]ATORY | | | [...] + + | [facility] | [address] | [place] [address] | [phone] | | HOSPITAL LABORATORY | | | [...] | | HOSPITAL | | | | Antipyretic/Rrbahwkai27. | | LABORATORY | | | | [...] + + | [facility] | [address] | [place] [address] | [phone] | | HOSPITAL LABORATORY | | | [...] + + | [facility] | [address] | [place] [address] | [phone] | | HOSPITAL LABORATORY | | | [...] | mL/min/1.73m2 | [facility] | | | GHANAIAN | RATE,ESTIMATED | | HOSPITAL | | | | mL/min/1.83m7Xztr than | | LABORATORY | | | [...] 74 | 46 - 116 U/L | [facility] | | | Phosphatase | | | [...] + + | [facility] | [address] | [place] [address] | [phone] | | HOSPITAL LABORATORY | | | [...] + + | [facility] | [address] | [place] [address] | [phone] | | HOSPITAL LABORATORY | | | [...] + + | [facility] | [address] | [place] [address] | [phone] | | HOSPITAL LABORATORY | | | [...] - 1.030 | [facility] | | | [place] | | | [facility] | | | [...] + + | [facility] | [address] | [place] [address] | [phone] | | HOSPITAL LABORATORY | | | [...] the attending | LABORATORY | | physician. Bava-wjf-evpgiqr drugs may cross react with some methods. [...] + + | [facility] | [address] | [place] [address] | [phone] | | HOSPITAL LABORATORY | | | [...]
--- OUTSIDE RECORDS SUMMARY | ~2019-09-28 | XMS | Encounter Summary ---
Demographics + + + | Address | [address] | | | [place] [address] | + + + | Home Phone [...] Team Providers + +------+ + | Care Client Application Support Engineer Name | Role | Phone | [...] | | [address] | [place] [address] | (Primary Dx); DISC | | | | [place], [place] | [phone] | DISEASE, LUMBAR; | | | | [address] | | Back pain, | | | | [phone] | | unspecified back | | | [...] [place] | | | | | | [address] | | | | | | | [...]
--- OUTSIDE RECORDS SUMMARY | ~2019-09-28 | XMS | Encounter Summary ---
Demographics + + + | Address | [address] | | | [place] [address] | [...] Providers + +------+ + | Care Cloth Pattern Maker Name | Role | Phone | [...] low | J Luis, | [address] | | | | | back pain | Shay Mukherjee MD | [place], | | | | | Procedures | [address] | [place] | | | | | MRI Lumbar | [place] | [address] | | | | | Spine wo | [place], [place] | Phone: | | | | | Contrast | [address] | [phone] | | | | | | Phone: | Fax: | | | | | | [phone] | [phone] | | | | | | Fax: | | | | | | | [phone] | | +--------+--------+ + + + + [...] + + | 08/16/ | Office | [facility] | Shay Dietz | Chronic low back | | 2012 | Visit | PHYSIATRY [address] | T, [address] | pain (Primary Dx); | | | | [place], | [place], [place] | DISC DISEASE, | | | | [place] [address] | [address] | LUMBAR; Facet | | | | [phone] | | arthritis of lumbar | | [...] [place] | | | | | | [address] | | | | | | | [...]
--- OUTSIDE RECORDS SUMMARY | ~2019-09-28 | XMS | Encounter Summary ---
Demographics + + + | Address | [address] | | | [place] [address] | + + + | Home Phone [...] | Author | [facility] (Historical as of | | | 06-16-19) | + + + | Organization | [facility] (Historical as of | | | [...] Team Providers + +------+ + | Care Restorative Rehab Aide Name | Role | Phone | + +------+ + | Romy De La Paz MD | PCP | | + +------+ + Encounter Details +--------+---------+ + + + | Date | Type | Department | Care Team | Description | +--------+---------+ + + + | 08/03/ | Surgery | [facility] | Maykel Hutchins MD | SPINAL CORD | | 2019 | | [facility] | [address] | STIMULATOR - | | | | Operating Room [address] | [place] [address] | THORACIC LAMINECTOMY | | | | [address] | [phone] | | | | | [place] [address] | | | | | | [phone] | | | +--------+---------+ + + + [...]
--- OUTSIDE RECORDS SUMMARY | ~2019-09-28 | XMS | Encounter Summary ---
Demographics + + + | Address | [address] | | | [place] [address] | + + + | Home Phone [...] Team Providers + +------+ + | Care Drupal Programmer Name | Role | Phone | [...] | | | | | region | [address] | | | | | | | Phone: | | | | | | | [phone] | | | | | | | Fax: | | | | | | | [phone] | | +--------+ + + + + + Reason for Visit + + + | Reason | Comments | + + + | Follow-up | MRI f/u | + + + Encounter Details +--------+---------+ + + + | Date | Type | Department | Care Team | Description | +--------+---------+ + + + | 09/10/ | Office | [facility] | Darrin Hoyos | Scoliosis of lumbar | | 2013 | Visit | NEUROSURGERY [address] | [address] | spine (Primary Dx); | | | | [address] | [address] | Facet arthritis of | | | | [place], [place] | [place] [address] | lumbar region | | | | [address] | [phone] | | | | | [phone] | | | +--------+---------+ + + + [...] t from the original. PEE Vang [address] [facility], [address] [place], [place] [address] FAX: NEUROSURGERY HISTORY AND PHYSICAL EXAMINATION CHIEF [...] a also s een a surgeon in [facility] he stated she did not need to have surgery according to her repo rt. She also reports she had a recent MRI in the [facility] which I do not have [...] has no apparent deficits with short or mcc memory. CRANIAL NERVES: II: Acuity is intact. [...] Intrinsics 5 4 Ulnar Intrinsics 5 4 Health And Wellness Advisor Strength 5 4 Hip Flexion 5 4 [...] [place] | | | | | | [id number] | | | | | | | [...]
--- OUTSIDE RECORDS SUMMARY | ~2019-09-28 | XMS | Encounter Summary ---
Demographics + + + | Address | [address] | | | [place] [address] | + + + | Home Phone [...] Team Providers + +------+ + | Care Irb Compliance Coordinator Name | Role | Phone | [...] Thoracic or | [place], | [address] | | | | | lumbosacral | Shay Mukherjee MD | [place], | | | | | neuritis or | [address] | [place] | | | | | | [place] | [address] | | | | | radiculitis, | [place], [place] | Phone: | | | | | unspecified | [address] | [phone] | | | | | Procedures | Phone: | Fax: | | | | | [facility] | [phone] | [phone] | | | | | ANES/STEROID | Fax: | | | | | | FORAMEN | [phone] | | | | | | LUMBAR/SACRA | | | | | | | L W IMG | | | | | | | GUIDE ,1 | | | | | | | [place]EVEL [place] | | | | | | [...] + + | 04/18/ | Hospital | [facility] | [place], | Left lumbar | | 2013 | Encounter | MED CTR XRAY [address] | [address] | radiculopathy; | | | | [place] | MICHAEL FITCH, | Chronic low back | | | | [place] [address] | [place] [address] | pain; Facet | | | | [phone] | [phone] | arthritis of lumbar | | | | | | region; Foraminal | | | | | Supervisor [facility] | stenosis of lumbar | | [...] [place] | | | | | | [address] | | | | | | | [...] ICD-9 Code 724.4 Kori Caputo | [facility] | | Joanne presents to the fluoroscopy suite for a [facility] | | fluoroscopically-guided left L5-S1 transforaminal [...] [address] | [place] | [phone] | | [facility] | | [address] | | | - IMAGING | | [...]
--- OUTSIDE RECORDS SUMMARY | ~2019-09-28 | XMS | Encounter Summary ---
Demographics + + + | Address | [address] | | | [place] [address] | + + + | Home Phone [...] Providers + +------+ + | Care Senior Center Manager Name | Role | Phone | [...]
--- OUTSIDE RECORDS SUMMARY | ~2019-09-28 | XMS | Encounter Summary ---
Demographics + + + | Address | [address] | | | [place] [address] | + + + | Home Phone [...] Team Providers + +------+ + | Care Builder Beam Name | Role | Phone | + [...] [address] | | | | | [place], | [address] [place], | | | | | [place] [address] | [place] [address] | | | | | [phone] | [phone] | | | | | | | [...] [place] | | | | | | [address] | | | | | | | | +--------+---------+ + + + documented as of this encounter Visit Diagnoses Not on filedocumented in this encounter"
--- OUTSIDE RECORDS SUMMARY | ~2019-09-28 | XMS | Encounter Summary ---
Demographics + + + | Address | [address] | | | [place] [address] | + + + | Home Phone [...] Team Providers + +------+ + | Care Morgue Attendant Name | Role | Phone | [...] + + | 05/09/ | Telephone | [facility] | Nick Martinez, | Results, Imaging | | 2017 | | PHYSIATRY [address] | PA-C [address] | | | | | [place], | [address] [place] | | | | | [place] [address] | [place] [address] | | | | | [phone] | [phone] | | | | | | | [...] [place] | | | | | | [address] | | | | | | | | +--------+---------+ + + + documented as of this encounter Visit Diagnoses Not on filedocumented in this encounter"
--- OUTSIDE RECORDS SUMMARY | ~2019-09-28 | XMS | Encounter Summary ---
Demographics + + + | Address | [address] | | | [place] [address] | + + + | Home Phone [...] Providers + +------+ + | Care Hot Metal Charger Name | Role | Phone | [...] [address] | | | | | [place], | [address] [facility], | | | | | [place] [address] | [place] [address] | | | | | [phone] | [phone] | | | | | | | [...] [place] | | | | | | [address] | | | | | | | | +--------+---------+ + + + documented as of this encounter Visit Diagnoses Not on filedocumented in this encounter"
--- OUTSIDE RECORDS SUMMARY | ~2019-09-28 | XMS | Encounter Summary ---
Demographics + + + | Address | [address] | | | [place] [address] | + + + | Home Phone [...] Team Providers + +------+ + | Care Psychologist Personnel Name | Role | Phone | + +------+ + | Oxana Nye | PCP | | + +------+ + Encounter Details +--------+------+ + + + | Date | Type | Department | Care Team | Description | +--------+------+ + + + | 03/09/ | Lab | Laboratory at [facility] | | Chest pain, | | 2015 | | [address] | | unspecified type | | | | [place], [place] | | | | | | [address] | | | | | | [phone] | | | +--------+------+ + + + [...] LIPID LAB | [address] | [place], [place] | | | | [address] | [address] | | + + + + + documented in this encounter Visit Diagnoses + + | Diagnosis | + + | Chest pain, unspecified type | + + documented in this encounter"
--- OUTSIDE RECORDS SUMMARY | ~2019-09-28 | XMS | Encounter Summary ---
Demographics + + + | Address | [address] | | | [place] [address] | + + + | Home Phone [...] Providers + +------+ + | Care Executive Manager Name | Role | Phone | [...] | | [address] | [place] [address] | (Primary Dx); DISC | | | | [place], [place] | [phone] | DISEASE, LUMBAR; | | | | [address] | | Back pain, | | | | [phone] | | unspecified back | | | [...] [place] | | | | | | [address] | | | | | | | [...]
--- OUTSIDE RECORDS SUMMARY | ~2019-09-28 | XMS | Encounter Summary ---
Demographics + + + | Address | [address] | | | [place] [address] | + + + | Home Phone [...] Providers + +------+ + | Care Hand Cigar Maker Name | Role | Phone [...] | SR | | | | | [phone] | | | +--------+ + + + [...] [place] | | | | | | [address] | | | | | | | | +--------+---------+ + + + documented as of this encounter Visit Diagnoses Not on filedocumented in this encounter
--- OUTSIDE RECORDS SUMMARY | ~2019-09-28 | XMS | Encounter Summary ---
Demographics + + + | Address | [address] | | | [place] [address] | + + + | Home Phone [...] + + | Author | [facility] (Historical as of | | | 06-16-19) [...] Providers + +------+ + | Care Machine Grainer Name | Role | Phone | + [...] SPINAL CORD | | 2019 | | [facility] | [address] | STIMULATOR - | | | | [address] | [place] [address] | THORACIC LAMINECTOMY | | | | [address] | [phone] | | | | | [place] [address] | | | | | | [phone] | | | +--------+---------+ + + + [...]
--- OUTSIDE RECORDS SUMMARY | ~2019-09-28 | XMS | Encounter Summary ---
Demographics + + + | Address | [address] | | | [place] [address] | + + + | Home Phone [...] Team Providers + +------+ + | Care Toddler Guide Name | Role | Phone | + [...] + + | 11/01/ | Telephone | [facility] | Shay Dietz | Medication Problem | | 2012 | | PHYSIATRY [address] | T, [address] | | | | | [place], | [place], [place] | | | | | [place] [address] | [address] | | | | | [phone] | | | +--------+ + + + [...] [place] | | | | | | [address] | | | | | | | | +--------+---------+ + + + documented as of this encounter Visit Diagnoses + + | Diagnosis | + + | Back pain - Primary Backache, unspecified | + + documented in this encounter"
--- OUTSIDE RECORDS SUMMARY | ~2019-09-28 | XMS | Encounter Summary ---
Demographics + + + | Address | [address] | | | [place] [address] | + + + | Home Phone [...] Team Providers + +------+ + | Care Refractory Specialist Name | Role | Phone | + +------+ + | Wendi Aiken | PCP | | + +------+ + Encounter Details +--------+ + + + + | Date | Type | Department | Care Team | Description | +--------+ + + + + | 04/07/ | Imaging | [facility] | Provider, | | | 2018 | Exam | MED CTR EXTER[facility] | [address] | | | | | IMAGING | [place] [place] | | | | | [phone] | [place] [address] | | +--------+ + + + + [...] | | | | | [address] [facility] [place] | | | | | | [id number] | | | | | | | [...]
--- OUTSIDE RECORDS SUMMARY | ~2019-09-28 | XMS | Encounter Summary ---
Demographics + + + | Address | [address] | | | [place] [address] | + + + | Home Phone [...] Providers + +------+ + | Care Radiological Equipment Specialist Name | Role | Phone | [...] | | | | | Juliana [place], | | | | | | [place] [address] | | | +--------+ + + + [...]
--- OUTSIDE RECORDS SUMMARY | ~2019-09-28 | XMS | Encounter Summary ---
Demographics + + + | Address | [address] | | | [place] [address] | + + + | Home Phone [...] Team Providers + +------+ + | Care Relay Checker Name | Role | Phone | + +------+ + | Concepción Gallardo NP | PCP | | + +------+ + Encounter Details +--------+ + + + + | Date | Type | Department | Care Team | Description | +--------+ + + + + | 11/26/ | Emergency | [facility] | Garth Pedroza MD | Convulsions, | | 2016 | | MEDICAL CENTER | [address] | unspecified | | | | EMERGENCY CENTER | [place] [address] | convulsion type | | | | [address] | [phone] | ([facility]); Generalized | | | | [place], [place] | | weakness | | | | [address] | | | | | | [phone] | | | +--------+ + + + [...] [place] | | | | | | [address] | | | | | | | [...] | | LAB | | | | [facility];[address] | | | [address];[place] [address] | | | | + + + + + + | Clarity | CLEARComment: Testing | | EXTERNAL | | | | performed at [facility];[address] | | LAB | | | | [address];[place] | | | | | | [address] | | | | + + + + + + | Specific | 1.008Comment: Testing | 1.002 - 1.030 | EXTERNAL | | | Alexander | performed at [facility];[address] | | LAB | | | | [address];[place] | | | | | | [address] | | | | + + + + + + | Leukocyte | NEGATIVEComment: Testing | | EXTERNAL | | | Esterase, | performed at [facility];[address] | | LAB | | | Urine | [address];[place] | | | | | | [address] | | | | + + + + + + | Nitrite, | NEGATIVEComment: Testing | | EXTERNAL | | | Urine | performed at [facility];[address] | | LAB | | | | [address];[place] | | | | | | [address] | | | | + + + + + + | Urobilinoge | NORMALComment: Testing | mg/dL | EXTERNAL | | | n, Urine | performed at [facility];[address] | | LAB | | | | [address];[place] | | | | | | [address] | | | | + + + + + + | Protein, | NEGATIVEComment: Testing | mg/dL | EXTERNAL | | | Urine | performed at [facility];[address] | | LAB | | | | [address];[place] | | | | | | [address] | | | | + + + + + + | pH, Urine | 5.0Comment: Testing | 5.0 - 8.0 | EXTERNAL | | | | performed at [facility];[address] | | LAB | | | | [address];[place] | | | | | | [address] | | | | + + + + + + | Blood, | NEGATIVEComment: Testing | | EXTERNAL | | | Urine | performed at [facility];[address] | | LAB | | | | [address];[place] | | | | | | [address] | | | | + + + + + + | Ketones | NEGATIVEComment: Testing | mg/dL | EXTERNAL | | | | performed at [facility];[address] | | LAB | | | | [address];[place] | | | | | | [address] | | | | + + + + + + | Bilirubin, | NEGATIVEComment: Testing | | EXTERNAL | | | Urine | performed at [facility];[address] | | LAB | | | | [address];[place] | | | | | | [address] | | | | + + + + + + | Glucose, | NEGATIVEComment: Testing | mg/dL | EXTERNAL | | | Urine | performed at [facility];[address] | | LAB | | | | [address];[place] | | | | | | [address] | | | | + + + [...] EXTERNAL | | | | performed at [facility];[address] | K/uL | LAB | | | | [address];[place], [place] | | | | | | [address] | | | | + + + + + -+ | RED CELL | 4.61Comment: Testing | 3.70 - 5.10 | EXTERNAL | | | COUNT | performed at [facility];[address] | M/uL | LAB | | | | [address];[place] | | | | | | [address] | | | | + + + + + -+ | Hgb | 13.4Comment: Testing | 11.3 - 15.5 | EXTERNAL | | | | performed at [facility];888 | g/dL | LAB | | | | [address];[place] | | | | | | [address] | | | | + + + + + -+ | Hematocrit, | 40.4Comment: Testing | 34.0 - 46.0 % | EXTERNAL | | | POC | performed at [facility];[address] | | LAB | | | | [address];[place] | | | | | | [address] | | | | + + + + + -+ | MCV | 87.7Comment: Testing | 80.0 - 100.0 fl | EXTERNAL | | | | performed at [facility];[address] | | LAB | | | | [address];[place] | | | | | | [address] | | | | + + + + + -+ | MCH | 29.1Comment: Testing | 27.0 - 34.0 pg | EXTERNAL | | | | performed at [facility];[address] | | LAB | | | | [address];[place] | | | | | | [address] | | | | + + + + + -+ | MCHC | 33.2Comment: Testing | 32.0 - 35.5 | EXTERNAL | | | | performed at [facility];888 | g/dL | LAB | | | | [address];[place] | | | | | | [address] | | | | + + + + + -+ | RDW-CV | 39.8Comment: Testing | 37 - 53 fl | EXTERNAL | | | | performed at [facility];[address] | | LAB | | | | [address];[place] | | | | | | [address] | | | | + + + + + -+ | Platelet | 287Comment: Testing | 150 - 400 K/uL | EXTERNAL | | | Count | performed at [facility];[address] | | LAB | | | Plasma | [address];[place] | | | | | | [address] | | | | + + + + + -+ | MPV | 7.7Comment: Testing | fl | EXTERNAL | | | | performed at [facility];[address] | | LAB | | | | [address];[place] | | | | | | [address] | | | | + + + + + -+ | Differentia | AUTOMATEDComment: | | EXTERNAL | | | l Type | Testing performed at | | LAB | | | | [facility];[address];[place] [address] | | | | + + + + + -+ | % Segmented | 45.19Comment: Testing | % | EXTERNAL | | | | performed at [facility];[address] | | LAB | | | Neutrophils | [address];[place] | | | | | | [address] | | | | + + + + + -+ | % | 44.63Comment: Testing | % | EXTERNAL | | | Lymphocytes | performed at [facility];[address] | | LAB | | | | [address];[place] | | | | | | [address] | | | | + + + + + -+ | % Monocytes | 7.42Comment: Testing | % | EXTERNAL | | | | performed at [facility];[address] | | LAB | | | | [address];[place] | | | | | | [address] | | | | + + + + + -+ | % | 1.58Comment: Testing | % | EXTERNAL | | | Eosinophils | performed at [facility];[address] | | LAB | | | | [address];[place] | | | | | | [address] | | | | + + + + + -+ | % Basophils | 1.18Comment: Testing | % | EXTERNAL | | | | performed at [facility];[address] | | LAB | | | | [address];[place] | | | | | | [address] | | | | + + + + + -+ | Absolute | 3.08Comment: Testing | 1.90 - 7.40 | EXTERNAL | | | Segmented | performed at [facility];888 | K/uL | LAB | | | Neutrophils | [address];[place] | | | | | | [address] | | | | + + + + + -+ | Absolute | 3.04Comment: Testing | 1.00 - 3.90 | EXTERNAL | | | Lymphocytes | performed at [facility];[address] | K/uL | LAB | | | | [address];[place] | | | | | | [address] | | | | + + + + + -+ | Absolute | 0.51Comment: Testing | 0.00 - 0.80 | EXTERNAL | | | Monocytes | performed at [facility];[address] | K/uL | LAB | | | | [address];[place] | | | | | | [address] | | | | + + + + + -+ | Absolute | 0.11Comment: Testing | 0.00 - 0.50 | EXTERNAL | | | Eosinophils | performed at [facility];[address] | K/uL | LAB | | | | [address];[place] | | | | | | [address] | | | | + + + + + -+ | Absolute | 0.08Comment: Testing | 0.00 - 0.10 | EXTERNAL | | | Basophils | performed at [facility];[address] | K/uL | LAB | | | | [address];[place] | | | | | | [address] | | | | + + + + + -+ | Na | 139Comment: Testing | 135 - 143 | EXTERNAL | | | | performed at [facility];888 | mmol/L | LAB | | | | [address];[place] | | | | | | [address] | | | | + + + + + -+ | K | 4.1Comment: SLT | 3.5 - 4.9 | EXTERNAL | | | | HEMOLYSISTesting | mmol/L | LAB | | | | performed at [facility];[address] | | | | | | [address];[place] | | | | | | [address] | | | | + + + + + -+ | Cl | 106Comment: Testing | 99 - 109 mmol/L | EXTERNAL | | | | performed at [facility];[address] | | LAB | | | | [address];[place] | | | | | | [address] | | | | + + + + + -+ | CO2 | 28Comment: Testing | 23 - 32 mmol/L | EXTERNAL | | | | performed at [facility];[address] | | LAB | | | | [address];[place] | | | | | | [address] | | | | + + + + + -+ | Anion Gap | 9Comment: Testing | 5 - 20 mmol/L | EXTERNAL | | | | performed at [facility];888 | | LAB | | | | [address];[place] | | | | | | [address] | | | | + + + + + -+ | Glucose, | 78Comment: Testing | 65 - 99 mg/dL | EXTERNAL | | | Fasting | performed at [facility];888 | | LAB | | | | [address];[place] | | | | | | [address] | | | | + + + + + -+ | BUN | 16Comment: Testing | 8 - 25 mg/dL | EXTERNAL | | | | performed at [facility];[address] | | LAB | | | | [address];[place] | | | | | | [address] | | | | + + + + + -+ | Creatinine | 0.82Comment: Testing | 0.50 - 1.00 | EXTERNAL | | | | performed at [facility];888 | mg/dL | LAB | | | | [address];[place] | | | | | | [address] | | | | + + + + + -+ | BUN/Creatin | 20Comment: Testing | | EXTERNAL | | | ine Ratio | performed at [facility];[address] | | LAB | | | | [address];[place] | | | | | | [address] | | | | + + + + + -+ | Calcium | 8.3 (L)Comment: Testing | 8.5 - 10.5 | EXTERNAL | | | | performed at [facility];888 | mg/dL | LAB | | | | [address];[place] | | | | | | [address] | | | | + + + + + -+ | Protein, | 7.3Comment: Testing | 6.3 - 8.2 g/dL | EXTERNAL | | | Total | performed at [facility];[address] | | LAB | | | | [address];[place] | | | | | | [address] | | | | + + + + + -+ | Albumin | 3.7Comment: Testing | 3.3 - 4.8 g/dL | EXTERNAL | | | | performed at [facility];[address] | | LAB | | | | [address];[place] | | | | | | [address] | | | | + + + + + -+ | Globulin | 3.6Comment: Testing | 1.3 - 4.9 g/dL | EXTERNAL | | | | performed at [facility];[address] | | LAB | | | | [address];[place] | | | | | | [address] | | | | + + + + + -+ | A/G Ratio | 1.0Comment: Testing | 1.0 - 2.4 | EXTERNAL | | | | performed at [facility];888 | | LAB | | | | [address];[place] | | | | | | [address] | | | | + + + + + -+ | Bilirubin | 0.2Comment: Testing | 0.1 - 1.5 mg/dL | EXTERNAL | | | Total | performed at [facility];888 | | LAB | | | | [address];[place] | | | | | | [address] | | | | + + + + + -+ | ALP, | 69Comment: Testing | 35 - 115 U/L | EXTERNAL | | | External | performed at [facility];888 | | LAB | | | | [address];[place] | | | | | | [address] | | | | + + + + + -+ | AST | 22Comment: SLT | 10 - 45 U/L | EXTERNAL | | | | HEMOLYSISTesting | | LAB | | | | performed at [facility];[address] | | | | | | [address];[place] | | | | | | [address] | | | | + + + + + -+ | ALT | 31Comment: Testing | 10 - 65 U/L | EXTERNAL | | | | performed at [facility];888 | | LAB | | | | [address];[place] | | | | | | [address] | | | | + + + [...] | | | | | | at [facility];[address] | | | | [address];[place] [address] | | | | + + + + + -+ | CK, Total | 128Comment: Testing | 30 - 240 U/L | EXTERNAL | | | | performed at [facility];[address] | | LAB | | | | [address];[place] | | | | | | [address] | | | | + + + [...] | | | | | performed at [facility];[address] | | | | | | [address];[place] | | | | | | [address] | | | | + + + + + -+ | aPTT, | 27Comment: Testing | 23 - 32 seconds | EXTERNAL | | | Patient | performed at [facility];[address] | | LAB | | | | [address];[place] | | | | | | [address] | | | | + + + + + -+ | CK-MB | 3.2Comment: Testing | 0.5 - 3.6 ng/mL | EXTERNAL | | | | performed at [facility];888 | | LAB | | | | [address];[place] | | | | | | [address] | | | | + + + [...] | | | Fingerstick | performed at [facility];888 | | LAB | | | | [address];[place] | | | | | | [address] | | | | + + + [...]
--- OUTSIDE RECORDS SUMMARY | ~2019-09-28 | XMS | Encounter Summary ---
Demographics + + + | Address | [address] | | | [place] [address] | + + + | Home Phone [...] Team Providers + +------+ + | Care Preparation Department Supervisor Name | Role | Phone [...] | | | | | (HCC) | [facility], | [address] | | | | | Scoliosis of | [place] [address] | [place], | | | | | lumbar | Phone: | [place] [address] | | | | | spine, | [phone] | Phone: | | | | | unspecified | Fax: | [phone] | | | | | scoliosis | [phone] | Fax: | | | | | type | | [phone] | | | | | Foraminal | [...] Scheduling Instructions | + + | Prefers [place] if possible | + + Reason for [...] low back | PA-C [address] [place] | | | | | pain with | [address] | [address] | | | | | right-sided | [place] | Phone: | | | | | sciatica | [address] | [phone] | | | | | Facet | Phone: | Fax: | | | | | arthritis of | [phone] | [phone] | | | | | lumbar | Fax: | | | | | | region | [phone] | | | | | | Adolescent [...] + + | 07/12/ | Office | [facility] | Sj Valdes MD | SACROILIITIS | | 2017 | Visit | NEUROSURGERY [address] | [address] | (Primary Dx); | | | | [facility] [address] | [place] [address] | Scoliosis of lumbar | | | | [place] | [phone] | spine, unspecified | | | | [address] | | scoliosis type; | | | | [phone] | | Foraminal stenosis | | | [...] from logan french original. Sj Valdes M.D. [address] [place] [address], [address] [place] [address] NEUROSURGERY HISTORY AND PHYSICAL EXAMINATION CHIEF COMPLAINT: [...] Intrinsics 5 4 Ulnar Intrinsics 5 4 Sewer Digger Strength 5 4 Hip Flexion 5 4* [...] she continues to see a psychologist in [place]. Despite her continued evaluation, I do not [...] | | | | | | DRIVE [place], [place] | | | | | | [id number] | | | | | | | [...] | | | | | region ([facility]) Left | | | | | [...]
--- OUTSIDE RECORDS SUMMARY | ~2019-09-28 | XMS | Encounter Summary ---
Demographics + + + | Address | [address] | | | [place] [address] | + + + | Home Phone [...] Providers + +------+ + | Care Head Start Coordinator Name | Role | Phone | [...] | | | [address] [address] [place], [place] | | | | | [address] | [address] | | | | | [place], [place] | | | | | | [address] | | | | | | [phone] | | | +--------+ + + + [...] [place] | | | | | | [address] | | | | | | | | +--------+---------+ + + + documented as of this encounter Visit Diagnoses Not on filedocumented in this encounter"
--- OUTSIDE RECORDS SUMMARY | ~2019-09-28 | XMS | Encounter Summary ---
Demographics + + + | Address | [address] | | | [place] [address] | + + + | Home Phone [...] Team Providers + +------+ + | Care Toe Former Stitchdowns Name | Role | Phone | + [...] [address] | | | | | [place], | [place], [place] | | | | | [place] [address] | [address] | | | | | [phone] | | | +--------+ + + + [...] [place] | | | | | | [address] | | | | | | | | +--------+---------+ + + + documented as of this encounter Visit Diagnoses Not on filedocumented in this encounter"
--- OUTSIDE RECORDS SUMMARY | ~2019-09-28 | XMS | Encounter Summary ---
Demographics + + + | Address | [address] | | | [place] [address] | + + + | Home Phone [...] + +------+ + | Care Director Of Adult Epilepsy Name | Role | Phone | + +------+ + PCP | Unavailable | + +------+ + Encounter Details +--------+ + + + + | Date | Type | Department | Care Team | Description | +--------+ + + + + | 02/22/ | Hospital | [facility] | Ken Craft | | | 2005 - | Encounter | [facility] | MD Masha [address] | | | | | TH ADULT [address] [place], [place] | | | 02/28/ | | [address] [place], [place] | [address] | | | 2005 | | [address] | | | | | | [phone] | Samantha Estes | | | | | | MD Jewel [address] | | | | | [address] | | | | | | [place] [address] | | | | | | | [...] [place] | | | | | | [address] | | | | | | | | +--------+---------+ + + + documented as of this encounter Visit Diagnoses Not on filedocumented in this encounter"
--- OUTSIDE RECORDS SUMMARY | ~2019-09-28 | XMS | Encounter Summary ---
Demographics + + + | Address | [address] | | | [place] [address] | + + + | Home Phone [...] Team Providers + +------+ + | Care Bowling Alley Attendant Name | Role | Phone | [...] + + | 08/16/ | Telephone | [facility] | Shay Dietz | Appointment | | 2012 | | PHYSIATRY [address] | [address] | | | | | [place], | [place], [place] | | | | | [place] [address] | [address] | | | | | [phone] | | | +--------+ + + + [...] [place] | | | | | | [id number] | | | | | | | | +--------+---------+ + + + documented as of this encounter Visit Diagnoses Not on filedocumented in this encounter"
--- OUTSIDE RECORDS SUMMARY | ~2019-09-28 | XMS | Encounter Summary ---
Demographics + + + | Address | [address] | | | [place] [address] | + + + | Home Phone [...] Providers + +------+ + | Care Senior Investment Manager Name | Role | Phone | + +------+ + | Wendi Aiken | PCP | | + +------+ + Encounter Details +--------+ + + + + | Date | Type | Department | Care Team | Description | +--------+ + + + + | 06/13/ | Hospital | [facility] | SonjaAlfredo DO | Closed compression | | 2018 | Encounter | [facility]ICAL [facility]ENTER | [address] | fracture of fifth | | | | CLINICAL DECISION | [place] [address] | lumbar vertebra, | | | | [address] | [phone] | initial encounter | | | | [place], [place] | | ([facility]LY [facility]) | | | | [address] | | | | | | [phone] | | | +--------+ + + + [...] Date of Service: 06/13/181408 Status: Signed Director Of Business Applications: Cristiane Araujo RN (Registered Nurse) Pt discharge [...] Notes by Kiya Dietrich RN at 06/13/18 1006 Author: Kiya Dietrich RN Service: General Surgery Author Type: Registered Nurse Filed: 06/13/18 100 Date of Service: 06/13/18 100 Status: Signed Director Of Business Applications: Kiya Dietrich RN (Registered Nurse) Report given [...] [place] | | | | | | [id number] | | | | | | | [...] | Fingerstick | performed at [facility] | | LAB | | | | [address];[place] | | | | | | [address] | | | | + + + [...]
--- OUTSIDE RECORDS SUMMARY | ~2019-09-28 | XMS | Encounter Summary ---
Demographics + + + | Address | [address] | | | [place] [address] | + + + | Home Phone [...] Team Providers + +------+ + | Care Linesperson Name | Role | Phone | + +------+ + | Miquel Calhoun MD | PCP | | + +------+ + Encounter Details +--------+ + + + + | Date | Type | Department | Care Team | Description | +--------+ + + + + | 11/29/ | Documentati | [facility] | Khushbu Cortez, | | | 2013 | on | [facility] | HOT PRESS OPERATOR [place], [place] | | | | | [address] | [address] | | | | | [address] | | | | | | Aravind Hannon | | | | | | [facility] [place] | | | | | | [address] | | | | | | [phone] | | | +--------+ + + + [...]
--- OUTSIDE RECORDS SUMMARY | ~2019-09-28 | XMS | Encounter Summary ---
Demographics + + + | Address | [address] | | | [place] [address] | + + + | Home Phone [...] Providers + +------+ + | Care Pilot Boat Deckhand Name | Role | Phone | [...] + + | 07/20/ | Telephone | [facility] | Maykel Hutchins MD | Procedure (Question) | | 2019 | | [facility] | [address] | | | | | ORTHOPEDIC SPINE | [place] | | | | | [address] [place] | [place] [address] | | | | | [place] | [phone] | | | | | [address] | | | | | | [phone] | | | +--------+ + + + [...] [place] | | | | | | [address] | | | | | | | | +--------+---------+ + + + documented as of this encounter Visit Diagnoses Not on filedocumented in this encounter"
--- OUTSIDE RECORDS SUMMARY | ~2019-09-28 | XMS | Encounter Summary ---
Demographics + + + | Address | [address] | | | [place] [address] | + + + | Home Phone [...] Team Providers + +------+ + | [employer] Name | Role | Phone | [...] | | [address] | [place] [address] | | | | | LAVELL Abernathy | [phone] | | | | | [address] | | | | | | [phone] | | | +--------+ + + + [...] [place] | | | | | | [address] | | | | | | | | +--------+---------+ + + + documented as of this encounter Visit Diagnoses Not on filedocumented in this encounter"
--- OUTSIDE RECORDS SUMMARY | ~2019-09-28 | XMS | Encounter Summary ---
Demographics + + + | Address | [address] | | | [place] [address] | + + + | Home Phone [...] Providers + +------+ + | Care Educational Guidance Counselor Name | Role | Phone | [...] | | | | | bilateral | [place], [place] | | | | | | low back | [address] | | | | | | pain with | Phone: | | | | | | right-sided | [phone] | | | | | | sciatica | Fax: | | | | | | | [phone] | | + + + + + [...] | | 2019 - | Encounter | [facility] | [address] | (Primary Dx); | | | | CARE FLOOR [address] | [place], | Chronic bilateral | | 08/04/ | | [address] | [place] [address] | low back pain with | | 2019 | | [place] | [phone] | right-sided sciatica | | | | [address] | | | | | | [phone] | | | +--------+ + + + [...] note might be different from logan phillips. [facility]. 08/04/2019 DISCHARGE SUMMARY PATIENT [...] by elevating your feet Date Last Reviewed: 9253-5342 [employer]. [address] [place] [address], [place] [address]. All righ ts reserved. This information is not intended as a substitute for professional medical care. Always follow your healthcare professional's instructions. Acetaminophen; Hydrocodone tablets or capsules Brand Names: Anexsia, Lorcet, Lorcet HD, Lorcet Plus, Lortab, Naturita, Verdrocet, Vicodin, Vi codin ES, Vicodin HP, [...] information carefully each time. Talk to your medical insurance claims processor regarding the use of this medicine in children. Special care may be needed. What side effects may I notice from receiving this medicine? Side effects that you should report to your doctor or health care coordination manager as soon as p ossible: allergic [...] (report to your doctor or health care coordination manager if they continue or are bothersome): [...] site. Contact the [facility] at [phone] or your [facility] to find a site. If you [...] medicine? Tell your doctor or health care coordination manager if your pain does not go [...] pharmacist, or health care provider. Copyright 2019 [employer] documented in this encounter Medications at Time [...] MSW - 08/04/2019 2:12 PM PDTCase manager business management sent out Home Health order to Kadi [...] her up today to go home to [facility]. Past Medical History: Diagnosis [...] 100 mg Oral BID PRN Julien Ang, PHOTOGRAPHIC AIDE HYDROcodone-acetaminophen (NORCO) 10-325 mg per tablet 1 tablet 1 tablet Oral Q4H PRN Julien Ang, PHOTOGRAPHIC AIDE 1 tablet at 08/04/19 0502 HYDROmorphone (DILAUDID) injection 0.2-0.4 mg 0.2-0.4 mg Intravenous Q1H PRN Maykel ortiz MD 0.2 mg at 08/03/19 1700 methocarbamol (ROBAXIN) tablet 1,500 mg 1,500 mg Oral Q6H PRN Julien Guzman, PHOTOGRAPHIC AIDE ondansetron (ZOFRAN ODT) disintegrating tablet 4 mg 4 mg Oral Q6H PRN Julien Guzman, PHOTOGRAPHIC AIDE rOPINIRole (REQUIP) tablet 4 mg 4 mg Oral 4x Daily PRN Maykel Hutchins MD senna (SENOKOT) tablet 8.6 mg 8.6 mg Oral BID PRN Julien Guzman, PHOTOGRAPHIC AIDE sodium chloride 0.45% (1/2 NS) infusion Intravenous Continuous Maykel Hutchins MD 100 mL /hr at 08/03/19 1342 950 mL at 08/03/19 1342 sodium chloride 0.45% (1/2 NS) infusion Intravenous Continuous Julien Guzman, PHOTOGRAPHIC AIDE 100 m L/hr at 08/04/19 0057 Allergies [...] [place] | | | | | | [address] | | | | | | | [...] | | | Needs | | | FISH CLEANER | | | reques | | | [...] | | | POC | performed at [facility];8 | | LABORATORY | | | | [address];[place], [place] | | | | | | [address] | | | | + + + + + + + + | Specimen | + + | | + + + + + + + | Performing | Address | City/State/Zipcode | Phone Number | | Organization | | | | + + + + + | [facility] | [address] | [place] [address] | [phone] | + + + + + POC Glucose (08/03/2019 4:15 PM PDT) + + + + + + | Component | Value | Ref Range | Performed | Pathologist | | | | | At | Signature | + + + + + + | Glucose, | 99Comment: Testing | 65 - 99 mg/dL | [facility] | | | POC | performed at [facility];[address] | | LABORATORY | | | | [address];[place] | | | | | | [address] | | | | + + + + + + + + | Specimen | + + | | + + + + + + + | Performing | Address | City/State/Zipcode | Phone Number | | Organization | | | | + + + + + | [facility] | [address] | [place] [address] | [phone] | + + + + + POC [...] | | | POC | performed at [facility];[address] | | LABORATORY | | | | [address];[place] | | | | | | [address] | | | | + + + + + + + + | Specimen | + + | | + + + + + + + | Performing | Address | City/State/Zipcode | Phone Number | | Organization | | | | + + + + + | [facility] | [address] | [place] [address] | [phone] | + + + + + POC Glucose (08/03/2019 11:05 AM PDT) + + + + + + | Component | Value | Ref Range | Performed | Pathologist | | | | | At | Signature | + + + + + + | Glucose, | 108 (H)Comment: Testing | 65 - 99 mg/dL | [facility] | | | POC | performed at [facility];[address] | | LABORATORY | | | | [address];[place] | | | | | | [address] | | | | + + + + + + + + | Specimen | + + | | + + + + + + + | Performing | Address | City/State/Zipcode | Phone Number | | Organization | | | | + + + + + | [facility] | [address] | [place] [address] | [phone] | + + + + + LINSEY [...] | | | POC | performed at [facility];[address] | | LABORATORY | | | | [address];[place] | | | | | | [address] | | | | + + + + + + + + | Specimen | + + | | + + + + + + + | Performing | Address | City/State/Zipcode | Phone Number | | Organization | | | | + + + + + | [facility] | [address] | [place] [address] | [phone] | + + + + + POC Glucose (08/03/2019 9:14 AM PDT) + + + + + + | Component | Value | Ref Range | Performed | Pathologist | | | | | At | Signature | + + + + + + | Glucose, | 80Comment: Testing | 65 - 99 mg/dL | [facility] | | | POC | performed at [facility];[address] | | LABORATORY | | | | [address];[place] | | | | | | [address] | | | | + + + + + + + + | Specimen | + + | | + + + + + + + | Performing | Address | City/State/Zipcode | Phone Number | | Organization | | | | + + + + + | [facility] | [address] | [place] [address] | [phone] | + + + + + Type [...] + + + | BB [facility] | [id number] | | [facility] | | | | | | LABORATORY | | + + + + + + | BB [facility] | Testing performed at | | [facility] | | | | [facility];[address] | | LABORATORY | | | | [address];[place] [address] | | | | + + + + + + + + | Specimen | + + | Blood | + + + + + + + | Performing | Address | City/State/Zipcode | Phone Number | | Organization | | | | + + + + + | [facility] | [address] | [place] [address] | [phone] | + + + + + POC Glucose (08/03/2019 7:23 AM PDT) + + + + + + | Component | Value | Ref Range | Performed | Pathologist | | | | | At | Signature | + + + + + + | Glucose, | 77Comment: Testing | 65 - 99 mg/dL | [facility] | | | POC | performed at [facility];[address] | | LABORATORY | | | | [address];[place], [place] | | | | | | [address] | | | | + + + + + + + + | Specimen | + + | | + + + + + + + | Performing | Address | City/State/Zipcode | Phone Number | | Organization | | | | + + + + + | [facility] | [address] | [place] [address] | [phone] | + + + + + documented [...] | | | | | | longer, ajuwnz-zkq-hxrrk use of | | | | | [...] | | | | | | | llqvys-pbw-mkcey use of at least | | | [...]
--- OUTSIDE RECORDS SUMMARY | ~2019-09-28 | XMS | Encounter Summary ---
Demographics + + + | Address | [address] | | | [place] [address] | + + + | Home Phone [...] Providers + +------+ + | Care Link Wire Fabric Machine Operator Name | Role | Phone [...] + + | 08/05/ | Office | [facility] | Spenser, | Foraminal stenosis | | 2013 | Visit | [address]ATRY [address] | [address] | of lumbar region - | | | | Alcalde [place], | [place] [place], | left L5-S1 (Primary | | | | [place] [address] | [place] [address] | Dx); Left lumbar | | | | [phone] | [phone] | radiculopathy; DDD | | | | [...] of the procedure you must provide a transfer driver to take you home. For all [...] no apparent deficits with short or intermediate accountant memory. She has appropriate fund of knowledge [...] along with flexion/extension xray's perf ormed in [place] last week. I will request for these [...] [place] | | | | | | [address] | | | | | | | [...] presents to the fluoroscopy suite for a [facility] | | fluoroscopically-guided left L5-S1 transforaminal [...] [address] | [place] | [phone] | | [facility] | | [address] | | | - IMAGING | | [...]
--- OUTSIDE RECORDS SUMMARY | ~2019-09-28 | XMS | Encounter Summary ---
Demographics + + + | Address | [address] | | | [place] [address] | + + + | Home Phone [...] Providers + +------+ + | Care Associate Professor Of Medicine Name | Role | Phone | + [...] | pain with | [address] | [address] | | | | | right-sided | [place] | Phone: | | | | | sciatica | [address] | [phone] | | | | | Facet | Phone: | Fax: | | | | | arthritis of | [phone] | [phone] | | | | | lumbar | Fax: | | | | | | region | [phone] | | | | | | Adolescent [...] | | | Sp[place]er, | [address] | | | | | Trochanteric | [place], | [place], | | | | | bursitis of | PA-C [address] | [place] | | | | | right hip | [address] | [address] | | | | | Procedures | [place] | Phone: | | | | | [place] | [address] | [phone] | | | | | Joint | Phone: | Fax: | | | | | Injection | [phone] | [phone] | | | | | Right | Fax: | | | | | | | [phone] | | +--------+--------+ + + + + [...] + + | 02/08/ | Office | [facility] [place] | Shiracz, | Chronic bilateral | | 2017 | Visit | [address]SIATRY [address] | [address] | low back pain with | | | | [place], | [address] [place], | right-sided sciatica | | | | [place] [address] | [place] [address] | (Primary Dx); Facet | | | | [phone] | [phone] | arthritis of lumbar | | | [...] of blood sugars if you are diabetic. superintendent terminal risk can lead to osteoporosis which is [...] working more h ours due to the [employer] up. 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 Unfortunately she lola nues to have significant [...] [place] | | | | | | [address] | | | | | | | [...] Bursa Injection Diagnosis: Lumbar Spondylosis and | [facility] | | Trochanteric Bursitis ICD-10 Code M47.816 and ICD-10 [place] | [facility] | | Harshal Rubio presents [...] + + | Performing | Address | City/State/[facility] | Phone Number | | Organization | | | | + + + + + | [facility] | [address] | [place], [place] | [phone] | | [facility] | | [address] | | | - IMAGING | | [...]
--- OUTSIDE RECORDS SUMMARY | ~2019-09-28 | XMS | Encounter Summary ---
Demographics + + + | Address | [address] | | | [place] [address] | + + + | Home Phone [...] Providers + +------+ + | Care Learning Operations Specialist Name | Role | Phone | [...] + + | 08/31/ | Telephone | [facility] | Denys Sibley, | Back Pain (Severe | | 2019 | | [facility] | DO [address] | pain) | | | | [address] [place], [place] | | | | | [address] | [address] | | | | | [place], [place] | | | | | | [address] | | | | | | [phone] | | | +--------+ + + + [...] [place] | | | | | | [address] | | | | | | | | +--------+---------+ + + + documented as of this encounter Visit Diagnoses Not on filedocumented in this encounter"
--- OUTSIDE RECORDS SUMMARY | ~2019-09-28 | XMS | Encounter Summary ---
Demographics + + + | Address | [address] | | | [place] [address] | + + + | Home Phone [...] Team Providers + +------+ + | Care Writer Editor Name | Role | Phone | [...] + + | 12/19/ | Office | [facility] | Shay Dietz | Chronic low back | | 2013 | Visit | [address]SIATRY [address] | [address] | pain (Primary Dx); | | | | [place], | [place], [place] | Facet arthritis of | | | | [place] [address] | [address] | lumbar region; Left | | | | [phone] | | lumbar | | | | [...] [place] | | | | | | [address] | | | | | | | [...]
--- OUTSIDE RECORDS SUMMARY | ~2019-09-28 | XMS | Encounter Summary ---
Demographics + + + | Address | [address] | | | [place] [address] | + + + | Home Phone [...] Team Providers + +------+ + | Care Larriman Helper Name | Role | Phone | + +------+ + | Miquel Calhoun MD | PCP | | + +------+ + Encounter Details +--------+ + + + + | Date | Type | Department | Care Team | Description | +--------+ + + + + | 10/18/ | Telephone | [facility] | Khushbu Cortez, | | | 2012 | | [facility] | PILATES INSTRUCTOR [place], [place] | | | | | [address] | [address] | | | | | [address] | | | | | | Aravind Hannon | | | | | | [place], [place] | | | | | | [address] | | | | | | [phone] | | | +--------+ + + + [...]
--- OUTSIDE RECORDS SUMMARY | ~2019-09-28 | XMS | Encounter Summary ---
Demographics + + + | Address | [address] | | | [place] [address] | + + + | Home Phone [...] Team Providers + +------+ + | Care Creative Intern Name | Role | Phone | [...] | [address] [place] | [place] [address] | | | | | [place] | [phone] | | | | | [address] | | | | | | [phone] | | | +--------+ + + + [...] [place] | | | | | | [address] | | | | | | | | +--------+---------+ + + + documented as of this encounter Visit Diagnoses Not on filedocumented in this encounter"
--- OUTSIDE RECORDS SUMMARY | ~2019-09-28 | XMS | Encounter Summary ---
Demographics + + + | Address | [address] | | | [place] [address] | + + + | Home Phone [...] Providers + +------+ + | Care Quantitative Associate Name | Role | Phone | [...] | | 2012 | | [facility] | [address] | | | | | [address] | [place], | | | | | [address] | [place] [address] | | | | | Aravind [place]annon | [phone] | | | | | [place], [place] | | | | | | [address] | | | | | | [phone] | | | +--------+ + + + [...]
--- OUTSIDE RECORDS SUMMARY | ~2019-09-28 | XMS | Encounter Summary ---
Demographics + + + | Address | [address] | | | [place] [address] | + + + | Home Phone [...] Team Providers + +------+ + | Care Sorter Upholstery Parts Name | Role | Phone | + +------+ + | Miquel Calhoun MD | PCP | | + +------+ + Encounter Details +--------+ + + + + | Date | Type | Department | Care Team | Description | +--------+ + + + + | 09/13/ | Telephone | [facility] | Khushbu Cortez, | | | 2012 | | [facility] | CANDY DECORATOR [place], [place] | | | | | [address] | [address] | | | | | [address] | | | | | | Aravind [place]annon | | | | | | [place], [place] | | | | | | [address] | | | | | | [phone] | | | +--------+ + + + [...]
--- OUTSIDE RECORDS SUMMARY | ~2019-09-28 | XMS | Encounter Summary ---
Demographics + + + | Address | [address] | | | [place] [address] | + + + | Home Phone [...] Team Providers + +------+ + | Care Preschool Substitute Teacher Name | Role | Phone | [...] + + | 07/05/ | Telephone | [facility] | Maykel Hutchins MD | Advice Only; Other | | 2019 | | [facility] | [address] | (inform office) | | | | ORTHOPEDIC SPINE | [place] | | | | | [address] [place] | [place] [address] | | | | | [place] | [phone] | | | | | [address] | | | | | | [phone] | | | +--------+ + + + [...] [place] | | | | | | [address] | | | | | | | [...]
--- OUTSIDE RECORDS SUMMARY | ~2019-09-28 | XMS | Encounter Summary ---
Demographics + + + | Address | [address] | | | [place] [address] | + + + | Home Phone [...] Providers + +------+ + | Care Power Operator Name | Role | Phone | + +------+ + | Miquel Calhoun MD | PCP | | + +------+ + Encounter Details +--------+ + + + + | Date | Type | Department | Care Team | Description | +--------+ + + + + | 05/01/ | Hospital | [facility] | Shay Dietz | | | 2012 | Encounter | MED CTR XRAY [address] | [address] | | | | | [place] | [facility] [place], [place] | | | | | [place] [address] | [address] | | | | | [phone] | | | +--------+ + + + [...] [place] | | | | | | [address] [...] Performed At | + + + | [facility] | [place] | | Department [address] [facility] | [facility] | | [ rep [facility]] [ rep [facility] | | [facility]] Signed | - IMAGING | | | | | Patient Name: WAYNEKORI PARIS | | | Physician: OMID : [id number] Age: 67 Sex: F Unit | | | #: [id number] Exam Date: 05/01/13 Location: | | | IMG.INV Report #: [id number] Page: | | | %(RAD)RES..mtdd.print.filter("pg") of %(RAD) | | | RES..mtdd.print.filter("tpg") | | | | | | Accession Number: [id number] | | | PROCEDURE NOTE LUMBAR FACET [...] Transcribed | | | Date/Time: 05/09/2013 18:53 Consultant Technology: | | | <<Signature on File>> | | | Shay Mukherjee | | | MD J [id number] <Electronically signed by Shay Mukherjee | | | J Luis SALGADO> Shay Dietz MD 05/09/131812 | | | Consultant Technology: Yudelka [id number] | | | | | + + + + + + + + | Performing | Address | City/State/Zipcode | Phone Number | | Organization | | | | + + + + + | [facility] | [address] | [place] | [phone] | | [facility] | | [address] | | | - IMAGING | | | | + + + + + documented in this encounter Visit Diagnoses Not on filedocumented in this encounter
--- OUTSIDE RECORDS SUMMARY | ~2019-09-28 | XMS | Encounter Summary ---
Demographics + + + | Address | [address] | | | [place] [address] | + + + | Home Phone [...] Team Providers + +------+ + | Care Tennis Centre Manager Name | Role | Phone | + +------+ + | Wendi Aiken | PCP | | + +------+ + Encounter Details +--------+ + + + + | Date | Type | Department | Care Team | Description | +--------+ + + + + | 04/06/ | Hospital | [facility] | Nick Martinez, | Lumbar radiculopathy | | 2018 | Encounter | MED CTR XRAY [address] | PA-C [address] | | | | | [place] | [address] [place] | | | | | [place] [address] | [place] [address] | | | | | [phone] | [phone] | | | | | | | | | | | | Licensed Social Worker, [facility] | | +--------+ + + + [...] [place] | | | | | | [address] | | | | | | | [...] 1:20 | | | | | ONCE, [facility] 04/06/18 at 1330, For 1 | [...] | | | | | Other, ONCE, [facility] 04/06/18 at 1330, | | PM PDT | | | | | For 1 dose | | | | | | + +-------+ +-------+---+---+ +---+---+ | | | +---+---+ + +-------+ +-------+---+---+ | lidocaine (PF) 1% injection 2 | Given | 04/06/20 | 2 mLs | | | | mL 2 mL, Other, ONCE, [facility] 04/06/18 | | 18 1:20 | [...] | | (Comment | | Intradermal, ONCE, [facility] 04/06/18 at | | PM PDT | | | ) | | 1330, For 1 dose | | | | | | + +-------+ +-------+---+ + +---+---+ | | | +---+---+ documented in this encounter"
--- OUTSIDE RECORDS SUMMARY | ~2019-09-28 | XMS | Encounter Summary ---
Demographics + + + | Address | [address] | | | [place] [address] | + + + | Home Phone [...] Providers + +------+ + | Care Supervisor Fiber Locking Name | Role | Phone | + [...] + + | 05/01/ | Office | [facility] | Shay Dietz | BACK PAIN, LUMBAR | | 2012 | Visit | [address]SIATRY [address] | [address] | (Primary Dx); DISC | | | | [place], | [place], [place] | DISEASE, LUMBAR; | | | | [place] [address] | [address] | OSTEOARTHRITIS, | | | | [phone] | | LUMBOSACRAL SPINE | +--------+---------+ + [...] our off ice. Please also provide a bus van driver to take you home on [...] the most recent injection was performed by md on 11/09/2012. She reports good relief with [...] [facility] to give her [...] | | | | | | [address] [facility] [place] | | | | | | [address] [...]
--- OUTSIDE RECORDS SUMMARY | ~2019-09-28 | XMS | Encounter Summary ---
Demographics + + + | Address | [address] | | | [place] [address] | + + + | Home Phone [...] Team Providers + +------+ + | Care Hat Copyist Name | Role | Phone | + [...] + | 12/19/ | Office | [facility] | Shay Dietz | Chronic low back | | 2013 | Visit | [address]SI[address]RY [address] | [address] | pain (Primary Dx); | | | | [place], | [place], [place] | Facet arthritis of | | | | [place] [address] | [address] | lumbar region; Left | | | | [phone] | | lumbar | | | | [...] [place] | | | | | | [address] | | | | | | | [...]
--- OUTSIDE RECORDS SUMMARY | ~2019-09-28 | XMS | Encounter Summary ---
Demographics + + + | Address | [address] | | | [place] [address] | + + + | Home Phone [...] Team Providers + +------+ + | Care Spin Instructor Name | Role | Phone | [...] | [address] | [place], [address] | | | | | [address] [place], [place] | [place], [place] | | | | | [address] | [address] | | | | | [phone] | | | +--------+ + + + [...] [place] | | | | | | [id number] | | | | | | | | +--------+---------+ + + + documented as of this encounter Visit Diagnoses Not on filedocumented in this encounter"
--- OUTSIDE RECORDS SUMMARY | ~2019-09-28 | XMS | Encounter Summary ---
Demographics + + + | Address | [address] | | | [place] [address] | + + + | Home Phone [...] + + | 04/06/ | Telephone | [facility] | Nick Martinez, | Results, Imaging | | 2018 | | PHYSIATRY [address] | PA-C [address] | (MRI/Cancelled | | | | [place], | [address] [place] | Injection) | | | | [place] [address] | [place] [address] | | | | | [phone] | [phone] | | | | | | | [...] [place] | | | | | | [address] | | | | | | | | +--------+---------+ + + + documented as of this encounter Visit Diagnoses Not on filedocumented in this encounter"
--- OUTSIDE RECORDS SUMMARY | ~2019-09-28 | XMS | Encounter Summary ---
Demographics + + + | Address | [address] | | | [place] [address] | + + + | Home Phone [...] Team Providers + +------+ + | Care Film Technician Name | Role | Phone | [...] + | 04/06/ | Telephone | [facility] | Nick Martinez, | Results, Imaging | | 2018 | | PHYSIATRY [address] | PA-C [address] | (MRI/Cancelled | | | | [place], | [address] [place] | Injection) | | | | [place] [address] | [place] [address] | | | | | [phone] | [phone] | | | | | | | [...] [place] | | | | | | [address] | | | | | | | | +--------+---------+ + + + documented as of this encounter Visit Diagnoses Not on filedocumented in this encounter"
--- OUTSIDE RECORDS SUMMARY | ~2019-09-28 | XMS | Encounter Summary ---
Demographics + + + | Address | [address] | | | [place] [address] | + + + | Home Phone [...] Providers + +------+ + | Care Wire Chief Name | Role | Phone | [...] | | | | | (HCC) | [facility], | [address] | | | | | Scoliosis of | [place] [address] | [place], | | | | | lumbar | Phone: | [place] [address] | | | | | spine, | [phone] | Phone: | | | | | unspecified | Fax: | [phone] | | | | | scoliosis | [phone] | Fax: | | | | | type | | [phone] | | | | | Foraminal | [...] Scheduling Instructions | + + | Prefers [place] if possible | + + Reason for [...] low back | PA-C [address] | [place] | | | | | pain with | [address] | [address] | | | | | right-sided | [place] | Phone: | | | | | sciatica | [address] | [phone] | | | | | Facet | Phone: | Fax: | | | | | arthritis of | [phone] | [phone] | | | | | lumbar | Fax: | | | | | | region | [phone] | | | | | | Adolescent [...] + + | 07/12/ | Office | [facility] | Sj Valdes MD | SACROILIITIS | | 2017 | Visit | NEUROSURGERY [address] | [address] | (Primary Dx); | | | | [facility] [address] | [place] [address] | Scoliosis of lumbar | | | | [place] | [phone] | spine, unspecified | | | | [address] | | scoliosis type; | | | | [phone] | | Foraminal stenosis | | | [...] from logan french original. Sj Valdes M.D. [address] [place] [address], [address] [place] [address] NEUROSURGERY HISTORY AND PHYSICAL EXAMINATION CHIEF COMPLAINT: [...] Intrinsics 5 4 Ulnar Intrinsics 5 4 Inspector Printed Circuit Boards Strength 5 4 Hip Flexion 5 4* [...] she continues to see a psychologist in [place]. Despite her continued evaluation, I do not [...] | | | | | | DRIVE [place], [place] | | | | | | [id number] | | | | | | | [...] | | | | | | region ([facility]) Left | | | | | | [...]
--- OUTSIDE RECORDS SUMMARY | ~2019-09-28 | XMS | Encounter Summary ---
Demographics + + + | Address | [address] | | | [place] [address] | + + + | Home Phone [...] Providers + +------+ + | Care Chief Yeoman Name | Role | Phone | + [...] | | | | [address] | [place] [address] | | | | | [place], [place] | [phone] | | | | | [address] | | | | | | [phone] | | | +--------+ + + + [...] [place] | | | | | | [address] | | | | | | | [...]
--- OUTSIDE RECORDS SUMMARY | ~2019-09-28 | XMS | Encounter Summary ---
Demographics + + + | Address | [address] | | | [place] [address] | + + + | Home Phone [...] Team Providers + +------+ + | Care Terrazzo Finisher Helper Name | Role | Phone | [...] | 06/28/ | Telephone | [facility] | Shay Dietz | Other (To discuss | | 2012 | | PHYSIATRY [address] | T, [address] | pain log reponse) | | | | [place], | [place] | | | | | [place] [address] | [address] | | | | | [phone] | | | +--------+ + + + [...] [place] | | | | | | [address] | | | | | | | | +--------+---------+ + + + documented as of this encounter Visit Diagnoses Not on filedocumented in this encounter"
--- OUTSIDE RECORDS SUMMARY | ~2019-09-28 | XMS | Encounter Summary ---
Demographics + + + | Address | [address] | | | [place] [address] | + + + | Home Phone [...] Team Providers + +------+ + | Care Loader Operator Supervisor Name | Role | Phone | [...] Vasquez VALDEZ | | | | | [phone] | [place] [address] | | +--------+ + + + + [...] | | | | [facility] [place] [place] | | | | | | [id number] | | | | | | | [...]
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
--- OUTSIDE RECORDS SUMMARY | ~2019-09-28 | XMS | Encounter Summary ---
Demographics + + + | Address | [address] | | | [place] [address] | + + + | Home Phone [...] Providers + +------+ + | Care Fire Alarm Repairer Name | Role | Phone | + +------+ + | Wendi Aiken | PCP | | + +------+ + Encounter Details +--------+ + + + + | Date | Type | Department | Care Team | Description | +--------+ + + + + | 04/07/ | Imaging | [facility] | Provider, | | | 2018 | Exam | MED CTR EXTERNAL | [address] | | | | | IMAGING | Vasquez VALDEZ | | | | | [phone] | [place] [address] | | +--------+ + + + + [...] | | | | | | [facility] | | | | | | [address] | | | | | | | [...]
--- OUTSIDE RECORDS SUMMARY | ~2019-09-28 | XMS | Encounter Summary ---
Demographics + + + | Address | [address] | | | [place] [address] | + + + | Home Phone [...] Providers + +------+ + | Care Powder Blender And Pourer Name | Role | Phone | + [...] low back | PA-C [address] | [facility] [place] | | | | | pain with | [address] | [address] | | | | | right-sided | [place] | Phone: | | | | | sciatica | [address] | [phone] | | | | | Facet | Phone: | Fax: | | | | | arthritis of | [phone] | [phone] | | | | | lumbar | Fax: | | | | | | region | [phone] | | | | | | Adolescent [...] | | | [place], | [address] | | | | | Trochanteric | [place], | [place], | | | | | bursitis of | PA-C [address] | [place] | | | | | right hip | [address] | [address] | | | | | Procedures | [place] | Phone: | | | | | [place] | [address] | [phone] | | | | | Joint | Phone: | Fax: | | | | | Injection | [phone] | [phone] | | | | | Right | Fax: | | | | | | | [phone] | | +--------+--------+ + + + + [...] + + | 02/08/ | Office | [facility] [place] | Shiracz, | Chronic bilateral | | 2017 | Visit | PHYSIATRY [address] | [address] | low back pain with | | | | [place], | [address] [place], | right-sided sciatica | | | | [place] [address] | [place] [address] | (Primary Dx); Facet | | | | [phone] | [phone] | arthritis of lumbar | | | [...] of blood sugars if you are diabetic. intermediate project manager risk can lead to osteoporosis which [...] of the procedure you must provide a van cdl driver to take you home. For [...] working more h ours due to the [employer] Round up. Her pain back is worse [...] apparent deficits with short or longterm memory. She has appropriate fund of knowledge [...] (multiple sessions over the years) and medicare contact specialist. Unfortunately she lola nues to have [...] [place] | | | | | | [address] | | | | | | | [...] Diagnosis: Lumbar Spondylosis and | [facility] | | Trochanteric Bursitis ICD-10 Code M47.816 and ICD-10 [place] | [facility] | | Harshal Rubio [...] Performing | Address | City/State/[facility] | Phone Number | | Organization | | | | + + + + + | [facility] [address] | [address] | [place], [place] | [phone] | | [facility] | | [address] | | | - IMAGING | | [...]
--- OUTSIDE RECORDS SUMMARY | ~2019-09-28 | XMS | Encounter Summary ---
Demographics + + + | Address | [address] | | | [place] [address] | + + + | Home Phone [...] Providers + +------+ + | Care Construction Project Mgr Name | Role | Phone | [...] | | | | [address] | [place] [address] | | | | | [place], [place] | [phone] | | | | | [address] | | | | | | [phone] | | | +--------+ + + + [...] [place] | | | | | | [address] | | | | | | | [...]
--- OUTSIDE RECORDS SUMMARY | ~2019-09-28 | XMS | Encounter Summary ---
Demographics + + + | Address | [address] | | | [place] [address] | + + + | Home Phone [...] Team Providers + +------+ + | Care Driver License Agent Name | Role | Phone | [...] Provider Unknown | | | | | [place], [place] | | | | | | [address] | (Fax) | | | | | [phone] | | | +--------+ + + + [...] [place] | | | | | | [address] | | | | | | | [...]
--- OUTSIDE RECORDS SUMMARY | ~2019-09-28 | XMS | Encounter Summary ---
Demographics + + + | Address | [address] | | | [place] [address] | + + + | Home Phone [...] Team Providers + +------+ + | Care Fuel Truck Driver Name | Role | Phone [...] | | [address] | [place] [address] | | | | | [place] | [phone] | | | | | [address] | | | | | | [phone] | | | +--------+ + + + [...]
--- OUTSIDE RECORDS SUMMARY | ~2019-09-28 | XMS | Encounter Summary ---
Demographics + + + | Address | [address] | | | [place] [address] | + + + | Home Phone [...] Providers + +------+ + | Care Chief Of Staff Name | Role | Phone | [...]
--- OUTSIDE RECORDS SUMMARY | ~2019-09-28 | XMS | Encounter Summary ---
Demographics + + + | Address | [address] | | | [place] [address] | + + + | Home Phone [...] Providers + +------+ + | Care Software Sales Manager Name | Role | Phone | + +------+ + PCP | Unavailable | + +------+ + Encounter Details +--------+ + + + + | Date | Type | Department | Care Team | Description | +--------+ + + + + | 09/22/ | Hospital | [facility] | Shay Dietz | | | 2010 | Encounter | MED CTR XRAY [address] | [address], [address] | | | | | [place] | [place], [place] | | | | | [place] [address] | [address] | | | | | [phone] | | | +--------+ + + + [...] [place] | | | | | | [address] | | | | | | | [...] At | + + + | [facility] Diagnostic Imaging Department | [facility] | | [address] [facility] | [facility] | | LUMBAR FACET INJECTIONS, | DIAG [...] Transcribed Date/Time: | | | 09/22/2011 18:07 [employer] Consultant: <Electronically Signed | | | by Shay Dietz MD> 09/27/11 1035 | | + + + + + | Procedure Note | + + | Junior, Rad Conversion - 12/07/2013 4:17 PM [facility] | | Diagnostic Imaging Department [address] [place] [address] | | LUMBAR FACET INJECTIONS, 09/22/2011 CLINICAL [...] 17:09 | |Transcribed Date/Time: 09/22/2011 18:07 | |[employer] Consultant: | |<Electronically Signed by Shay Dietz MD> [...]
--- OUTSIDE RECORDS SUMMARY | ~2019-09-28 | XMS | Encounter Summary ---
Demographics + + + | Address | [address] | | | [place] [address] | + + + | Home Phone [...] Providers + +------+ + | Care Patient Service Associate Name | Role | Phone | [...] | at [facility] [address] | | Change: Effective | | | | Mcadams Brittany Mailcode: | | October 31 | | | | [address] | | | | | | Health and Healing, | | | | | | | | | | | | floor [place], [place] | | | | | | [address] | | | | | | [phone] | | | +--------+ + + + [...]
--- OUTSIDE RECORDS SUMMARY | ~2019-09-28 | XMS | Encounter Summary ---
Demographics + + + | Address | [address] | | | [place] [address] | + + + | Home Phone [...] Providers + +------+ + | Care Gas Engine Performance Engineer Name | Role | Phone | [...] | SR | | | | | [phone] | | | +--------+ + + + [...] [place] | | | | | | [address] | | | | | | | | +--------+---------+ + + + documented as of this encounter Visit Diagnoses Not on filedocumented in this encounter
--- OUTSIDE RECORDS SUMMARY | ~2019-09-28 | XMS | Encounter Summary ---
Demographics + + + | Address | [address] | | | [place] [address] | + + + | Home Phone [...] Team Providers + +------+ + | Care Pulper Name | Role | Phone | + +------+ + | Miquel Calhoun MD | PCP | | + +------+ + Encounter Details +--------+ + + + + | Date | Type | Department | Care Team | Description | +--------+ + + + + | 09/17/ | [facility] | Khushbu Cortez, | | | 2012 | | [facility] | RING ATTACHER [place], [place] | | | | | [address] | [address] | | | | | [address] | | | | | | Aravind Hannon | | | | | | [place], [place] | | | | | | [address] | | | | | | [phone] | | | +--------+ + + + [...]
--- OUTSIDE RECORDS SUMMARY | ~2019-09-28 | XMS | Encounter Summary ---
Demographics + + + | Address | [address] | | | [place] [address] | + + + | Home Phone [...] Team Providers + +------+ + | Care Advanced Research Programs Director Name | Role | Phone | [...] | Lumbar | [place], | [address] | | | | | spondylosis | Shay Mukherjee MD | [place], | | | | | Right hip | [address] | [place] | | | | | pain | [place] | [address] | | | | | Procedures | [place], [place] | Phone: | | | | | [place] | [address] | [phone] | | | | | DX/THER AGNT | Phone: | Fax: | | | | | [place] | [phone] | [phone] | | | | | FACET JOINT, | Fax: | | | | | | LUMBAR/SAC, | [phone] | | | | | | 1ST LEVEL | | | | | | | [place] | | | | | | | TRIAMCINOLON | | | | | | | E ACET INJ | | | | | | | NOS, 10 MG | | | | | | | [place] | | | | | | | [...] + + | 02/08/ | Hospital | [facility] | [place], | Trochanteric | | 2016 | Encounter | MED CTR XRAY [address] | [address] | bursitis of right | | | | [place] | [facility], | hip (Primary Dx); | | | | [place] [address] | [place] [address] | Chronic bilateral | | | | [phone] | [phone] | low back pain with | | | | | | right-sided | | | | | [place] | sciatica; Facet | | | [...] [place] | | | | | | [address] | | | | | | | [...] Bursa Injection Diagnosis: Lumbar Spondylosis and | [facility] | | Trochanteric Bursitis ICD-10 Code M47.816 and ICD-10 [facility] | | Harshal Rubio presents to the [...] ST. | [address] | [place] | [phone] | | [facility] | | [address] | | | - IMAGING | | [...]
--- OUTSIDE RECORDS SUMMARY | ~2019-09-28 | XMS | Encounter Summary ---
Demographics + + + | Address | [address] | | | [place] [address] | + + + | Home Phone [...] Providers + +------+ + | Care Edge Inker Uppers Name | Role | Phone | + +------+ + PCP | Unavailable | + +------+ + Encounter Details +--------+ + + + + | Date | Type | Department | Care Team | Description | +--------+ + + + + | 09/07/ | Hospital | [facility] | | | | 1998 - | Encounter | MED CTR CANCER | | | | | | ALEXE[place] Hernadez | | | | 10/30/ | | [place] | | | | 1998 | | [address] | | | | | | [phone] | | | +--------+ + + + [...] [place] | | | | | | [address] | | | | | | | | +--------+---------+ + + + documented as of this encounter Visit Diagnoses Not on filedocumented in this encounter"
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
--- OUTSIDE RECORDS SUMMARY | ~2019-09-28 | XMS | Encounter Summary ---
Demographics + + + | Address | [address] | | | [place] [address] | + + + | Home Phone [...] Providers + +------+ + | Care Licensed Clinical Social Worker Name | Role | Phone | [...] + + | 05/01/ | Office | [facility] | Shay Dietz | BACK PAIN, LUMBAR | | 2012 | Visit | PHYSIATRY [address] | [address], [address] | (Primary Dx); DISC | | | | [place], | [place], [place] | DISEASE, LUMBAR; | | | | [place] [address] | [address] | OSTEOARTHRITIS, | | | | [phone] | | LUMBOSACRAL SPINE | +--------+---------+ + [...] - 05/01/2013 11:20 [facility] your scheduled [...] our off ice. Please also provide a special needs bus driver to take you home on [...] the most recent injection was performed by ca on 11/09/2012. She reports good relief with [...] a letter to the caregivers at the [facility] to allow them to give her a [...] | | | | | | [address] [facility] [place] | | | | | | [address] [...]
--- OUTSIDE RECORDS SUMMARY | ~2019-09-28 | XMS | Encounter Summary ---
Demographics + + + | Address | [address] | | | [place] [address] | + + + | Home Phone [...] Providers + +------+ + | Care Career Development Counselor Name | Role | Phone | [...] | | 2016 | Encounter | at [facility] [address] | [address] [facility] | | | | | Mcadams Brittany Mailcode: | [facility] [address] [place], | | | | | [address] | [place] [address] | | | | | Health and Healing, | [phone] | | | | | [facility] | | | | | | floor [place], [place] | | | | | | [address] | | | | | | [phone] | | | +--------+ + + + [...]
--- OUTSIDE RECORDS SUMMARY | ~2019-09-28 | XMS | Encounter Summary ---
Demographics + + + | Address | [address] | | | [place] [address] | + + + | Home Phone [...] Team Providers + +------+ + | Care Writing Center Director Name | Role | Phone [...] 2012 | | [facility] | [address] | (Dr. Holbrook) | | | | [address] | [address] | | | | | [address] | [place], [place] | | | | | [facility] | [address] | | | | | [place], [place] | [phone] | | | | | [address] | | | | | | [phone] | | | +--------+ + + + [...]
--- OUTSIDE RECORDS SUMMARY | ~2019-09-28 | XMS | Encounter Summary ---
Demographics + + + | Address | [address] | | | [place] [address] | + + + | Home Phone [...] Providers + +------+ + | Care Labor Supervisor Name | Role | Phone | + +------+ + | Wendi Aiken | PCP | | + +------+ + Encounter Details +--------+ + + + + | Date | Type | Department | Care Team | Description | +--------+ + + + + | 07/12/ | Hospital | [facility] | Sj Valdes MD | Left lumbar | | 2017 | Encounter | MED CTR XRAY [address] | [address] | radiculopathy; DISC | | | | [place] | [place] [address] | DISEASE, LUMBAR; | | | | [place] [address] | [phone] | Back pain, | | | | [phone] | | unspecified back | | | [...] [place] | | | | | | [address] | | | | | | | [...]
--- OUTSIDE RECORDS SUMMARY | ~2019-09-28 | XMS | Encounter Summary ---
Demographics + + + | Address | [address] | | | [place] [address] | + + + | Home Phone [...] Team Providers + +------+ + | Care Ups Driver Name | Role | Phone | [...] 2012 | | [facility] | [address] | (Dr. Holbrook) | | | | [address] | [address] | | | | | [address] | [place], [place] | | | | | [facility] | [address] | | | | | [place], [place] | [phone] | | | | | [address] | | | | | | [phone] | | | +--------+ + + + [...]
--- OUTSIDE RECORDS SUMMARY | ~2019-09-28 | XMS | Encounter Summary ---
Demographics + + + | Address | [address] | | | [place] [address] | + + + | Home Phone [...] Team Providers + +------+ + | Care Monkey Breeder Name | Role | Phone | + +------+ + | Wendi Aiken | PCP | | + +------+ + Encounter Details +--------+ + + + + | Date | Type | Department | Care Team | Description | +--------+ + + + + | 04/07/ | Imaging | [facility] | Provider, | | | 2018 | Exam | MED CTR EXTERNAL | [address] | | | | | IMAGING | [place] | | | | | [phone] | [place] [address] | | +--------+ + + + + [...] | | | | | | DR[address] [facility] | | | | | | [address] | | | | | | | [...]
--- OUTSIDE RECORDS SUMMARY | ~2019-09-28 | XMS | Encounter Summary ---
Demographics + + + | Address | [address] | | | [place] [address] | + + + | Home Phone [...] Team Providers + +------+ + | Care Dukey Rider Name | Role | Phone | + +------+ + | Concepción Gallardo NP | PCP | | + +------+ + Encounter Details +--------+ + + + + | Date | Type | Department | Care Team | Description | +--------+ + + + + | 07/17/ | Hospital | [facility] | Paty, | Intractable low back | | 2014 - | Encounter | [facility] | MD [address] | pain | | | | CLINICAL DECISION | [address] | | | 07/18/ | | [address] | [place] [address] | | | 2013 | | [place], [place] | [phone] | | | | | [address] | | | | | | [phone] | | | +--------+ + + + [...] Date of Service: 07/18/14 1131 Status: Signed Carpet Cleaner: Bob Valverde DO (Physician) [facility] Service: Hospitalist Discharge Summary Date of [...] IV Fentanyl, a s well as oral [place] 10's, Zanaflex, Klonopin, and PT was ordered. [...] MRI system. Multiplanar sequences according to a [facility] protocol were acquired without contrast. FINDINGS: There [...] Date of Service: 07/18/14 1310 Status: Signed Carpet Cleaner: Nati Mena RN (Registered Nurse) Pt discharged [...] Notes by Nati Mena RN at 07/18/14 8774 Author: Nati Mena RN Service: (none) Author Type: Registered Nurse Filed: 07/18/14 1895 Date of Service: 07/18/14 1245 Status: Signed Carpet Cleaner: Nati Mena RN (Registered Nurse) Pt to [...] Date of Service: 07/18/14 1245 Status: Addendum Carpet Cleaner: Sj Bender PT (Physical Therapist) Related Notes: [...] Recommended (has FWW) Prior Function Level of [place] Modified independent with functional mobility;Modified independent wi [...] G Codes Mobility: Walking & Moving Around: $G8924 Current Status : CK - At least 40% but less than 60% impaired, limited or restricted $G8937 Projected Goal Status : CK - At [...] 0549 Date of Service: 07/18/14509 Status: Signed Carpet Cleaner: Dion Goldsmith RN (Registered Nurse) 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 RAILWAY EQUIPMENT OPERATOR reports pt woke up to ask what her blood pressure is. Pt sleepin g now. Plan to recheck B/P in an hour. onver hiren Akosua, Provider Unknown - 07/18/2014 3:29 AM PDT Progress Notes by Sofi Sol RPH at 07/18/14328 Author: Sofi Sol RPH Service: (none) Author Type: Pharmacist Filed: 07/18/14328 Date of Service: 07/18/14328 Status: Signed Carpet Cleaner: Sofi Sol RPH (Pharmacist) Clinical Pharmacy Note: [...] [place] | | | | | | [address] | | | | | | | [...] | Fingerstick | performed at [facility] | | LAB | | | | [address];[place], [place] | | | | | | [address] | | | | + + + [...] | Fingerstick | performed at [facility];[address] | | LAB | | | | [address];[place] | | | | | | [address] | | | | + + + [...] EXTERNAL | | | | performed at [facility], [address] | | LAB | | | | [address], | | | | | | [place] [address] | | | | + + + + + + | RED CELL | 4.16Comment: Testing | 3.70 - 5.10 | EXTERNAL | | | COUNT | performed at [facility], [address] | M/uL | LAB | | | | [address], | | | | | | [place] [address] | | | | + + + + + + | Hgb | 11.6Comment: Testing | 11.3 - 15.5 | EXTERNAL | | | | performed at [facility], [address] | g/dL | LAB | | | | [address], | | | | | | [place] [address] | | | | + + + + + + | Hematocrit, | 36.4Comment: Testing | 34.0 - 46.0 % | EXTERNAL | | | POC | performed at [facility], [address] | | LAB | | | | [address], | | | | | | [place] [address] | | | | + + + + + + | MCV | 87.5Comment: Testing | 80.0 - 100.0 fl | EXTERNAL | | | | performed at [facility], [address] | | LAB | | | | [address], | | | | | | [place] [address] | | | | + + + + + + | MCH | 27.9Comment: Testing | 27.0 - 34.0 pg | EXTERNAL | | | | performed at [facility], [address] | | LAB | | | | [address], | | | | | | [place] [address] | | | | + + + + + + | MCHC | 31.9 (L)Comment: Testing | 32.0 - 35.5 | EXTERNAL | | | | performed at [facility], [address] | g/dL | LAB | | | | [address], | | | | | | [place] [address] | | | | + + + + + + | RDW-CV | 43.8Comment: Testing | 37 - 53 fl | EXTERNAL | | | | performed at [facility], [address] | | LAB | | | | [address], | | | | | | [place] [address] | | | | + + + + + + | Platelet | 244Comment: Testing | 150 - 400 K/uL | EXTERNAL | | | Count | performed at [facility], [address] | | LAB | | | Plasma | [address], | | | | | | [place] [address] | | | | + + + + + + | MPV | 8.3Comment: Testing | fl | EXTERNAL | | | | performed at [facility], [address] | | LAB | | | | [address], | | | | | | [place] [address] | | | | + + + + + + | Differentia | AUTOMATEDComment: | | EXTERNAL | | | l Type | Testing performed at | | LAB | | | | [facility], [address] | | | | | | [place] | | | | | | [address] | | | | + + + + + + | % Segmented | 40.1Comment: Testing | % | EXTERNAL | | | | performed at [facility], [address] | | LAB | | | Neutrophils | [address], | | | | | | [place] [address] | | | | + + + + + + | % | 48.1Comment: Testing | % | EXTERNAL | | | Lymphocytes | performed at [facility], [address] | | LAB | | | | [address], | | | | | | [place] [address] | | | | + + + + + + | % Monocytes | 9.5Comment: Testing | % | EXTERNAL | | | | performed at [facility], [address] | | LAB | | | | [address], | | | | | | [place] [address] | | | | + + + + + + | % | 1.9Comment: Testing | % | EXTERNAL | | | Eosinophils | performed at [facility], [address] | | LAB | | | | [address], | | | | | | [place] [address] | | | | + + + + + + | % Basophils | 0.4Comment: Testing | % | EXTERNAL | | | | performed at [facility], [address] | | LAB | | | | [address], | | | | | | [place] [address] | | | | + + + + + + | Absolute | 2.0Comment: Testing | 1.9 - 7.4 K/uL | EXTERNAL | | | Segmented | performed at [facility], [address] | | LAB | | | Neutrophils | [address], | | | | | | [place] [address] | | | | + + + + + + | Absolute | 2.4Comment: Testing | 1.0 - 3.9 K/uL | EXTERNAL | | | Lymphocytes | performed at [facility], [address] | | LAB | | | | [address], | | | | | | [place] [address] | | | | + + + + + + | Absolute | 0.5Comment: Testing | 0 - 0.8 K/uL | EXTERNAL | | | Monocytes | performed at [facility], [address] | | LAB | | | | [address], | | | | | | [place] [address] | | | | + + + + + + | Absolute | 0.1Comment: Testing | 0 - 0.5 K/uL | EXTERNAL | | | Eosinophils | performed at [facility], [address] | | LAB | | | | [address], | | | | | | [place] [address] | | | | + + + + + + | Absolute | 0.0Comment: Testing | 0 - 0.1 K/uL | EXTERNAL | | | Basophils | performed at [facility], [address] | | LAB | | | | [address], | | | | | | [place] [address] | | | | + + + [...] | | | | | [place] [address] | | | | + + + [...] EXTERNAL | | | | performed at [facility], [address] | | LAB | | | | [address], | | | | | | [place] [address] | | | | + + + [...] | | | | | [place] [address] | | | | + + + [...] + + | Hemoglobin | 5.2Comment: The Kosovan | 4.0 - 6.0 % | EXTERNAL [...] performed at [facility], [address] | | | | | [address], | | | | | | [place] [address] | | | | + + + [...] | | | | | | [place] [address] | | | | + + + [...] | | | Direct | performed at [facility], [address] | | LAB | | | | [address], | | | | | | [place] [address] | | | | + + + [...] | | | | | [place] [address] | | | | + + + + + + | K | 4.0Comment: Testing | 3.5 - 4.9 | EXTERNAL | | | | performed at [facility], [address] | mmol/L | LAB | | | | [address], | | | | | | [place] [address] | | | | + + + + + + | Cl | 106Comment: Testing | 99 - 109 mmol/L | EXTERNAL | | | | performed at [facility], [address] | | LAB | | | | [address], | | | | | | [place] [address] | | | | + + + + + + | CO2 | 28Comment: Testing | 23 - 32 mmol/L | EXTERNAL | | | | performed at [facility], [address] | | LAB | | | | [address], | | | | | | [place] [address] | | | | + + + + + + | Anion Gap | 8Comment: Testing | 5 - 20 mmol/L | EXTERNAL | | | | performed at [facility], [address] | | LAB | | | | [address], | | | | | | [place] [address] | | | | + + + + + + | Glucose, | 82Comment: Testing | 65 - 99 mg/dL | EXTERNAL | | | Fasting | performed at [facility], [address] | | LAB | | | | [address], | | | | | | [place] [address] | | | | + + + + + + | BUN | 18Comment: Testing | 8 - 25 mg/dL | EXTERNAL | | | | performed at [facility], [address] | | LAB | | | | [address], | | | | | | [place] [address] | | | | + + + + + + | Creatinine | 0.61Comment: Testing | 0.50 - 1.00 | EXTERNAL | | | | performed at [facility], [address] | mg/dL | LAB | | | | [address], | | | | | | [place] [address] | | | | + + + + + + | BUN/Creatin | 30Comment: Testing | | EXTERNAL | | | ine Ratio | performed at [facility], [address] | | LAB | | | | [address], | | | | | | [place] [address] | | | | + + + + + + | Calcium | 8.7Comment: Testing | 8.5 - 10.2 | EXTERNAL | | | | performed at [facility], [address] | mg/dL | LAB | | | | [address], | | | | | | [place] [address] | | | | + + + + + + | Protein, | 5.9 (L)Comment: Testing | 6.3 - 8.2 g/dL | EXTERNAL | | | Total | performed at [facility], [address] | | LAB | | | | [address], | | | | | | [place] [address] | | | | + + + + + + | Albumin | 3.7Comment: Testing | 3.3 - 4.8 g/dL | EXTERNAL | | | | performed at [facility], [address] | | LAB | | | | [address], | | | | | | [place] [address] | | | | + + + + + + | Globulin | 2.2Comment: Testing | 1.3 - 4.9 g/dL | EXTERNAL | | | | performed at [facility], [address] | | LAB | | | | [address], | | | | | | [place] [address] | | | | + + + + + + | A/G Ratio | 1.7Comment: Testing | 1.0 - 2.4 | EXTERNAL | | | | performed at [facility], [address] | | LAB | | | | [address], | | | | | | [place] [address] | | | | + + + + + + | Bilirubin | 0.3Comment: Testing | 0.1 - 1.5 mg/dL | EXTERNAL | | | Total | performed at [facility], [address] | | LAB | | | | [address], | | | | | | [place] [address] | | | | + + + + + + | ALP, | 86Comment: Testing | 35 - 115 U/L | EXTERNAL | | | External | performed at [facility], [address] | | LAB | | | | [address], | | | | | | [place] [address] | | | | + + + + + + | AST | 162 (H)Comment: Testing | 10 - 45 U/L | EXTERNAL | | | | performed at [facility], [address] | | LAB | | | | [address], | | | | | | [place] [address] | | | | + + + + + + | ALT | 112 (H)Comment: Testing | 10 - 65 U/L | EXTERNAL | | | | performed at [facility], [address] | | LAB | | | | [address], | | | | | | [place] [address] | | | | + + + [...] | | | | | | at [facility], [address] | | | | | | [address], | | | | | | [place] [address] | | | | + + + [...] | Fingerstick | performed at [facility];[address] | | LAB | | | | [address];[place] | | | | | | [address] | | | | + + + [...]
--- OUTSIDE RECORDS SUMMARY | ~2019-09-28 | XMS | Encounter Summary ---
Demographics + + + | Address | [address] | | | [place] [address] | + + + | Home Phone [...] Team Providers + +------+ + | Care Instructional Manager Name | Role | Phone | [...] | | [address] | [place] [address] | | | | | [place] | [phone] | | | | | [address] | | | | | | [phone] | | | +--------+ + + + [...] [place] | | | | | | [address] | | | | | | | | +--------+---------+ + + + documented as of this encounter Visit Diagnoses Not on filedocumented in this encounter"
--- OUTSIDE RECORDS SUMMARY | ~2019-09-28 | XMS | Encounter Summary ---
Demographics + + + | Address | [address] | | | [place] [address] | + + + | Home Phone [...] Team Providers + +------+ + | Care Wearing Apparel Folder Name | Role | Phone | + +------+ + | Wendi Aiken | PCP | | + +------+ + Encounter Details +--------+ + + + + | Date | Type | Department | Care Team | Description | +--------+ + + + + | 06/13/ | Hospital | [facility] | SonjaAlfredo DO | Closed compression | | 2018 | Encounter | [facility]ICAL [facility]ENTER | [address] | fracture of fifth | | | | CLINICAL DECISION | [place] [address] | lumbar vertebra, | | | | [address] | [phone] | initial encounter | | | | [place], [place] | | ([facility]) | | | | [address] | | | | | | [phone] | | | +--------+ + + + [...] 06/13/181408 Date of Service: 06/13/181408 Status: Signed Food Concession Manager: Cristiane Araujo RN (Registered Nurse) Pt discharge [...] Surgery Author Type: Registered Nurse Filed: 06/13/18 1006 Date of Service: 06/13/18 100 Status: Signed Food Concession Manager: Kiya Dietrich RN (Registered Nurse) Report given [...] [place] | | | | | | [id number] | | | | | | | [...] | LAB | | | | [address];[place] | | | | | | [address] | | | | + + + [...]
--- OUTSIDE RECORDS SUMMARY | ~2019-09-28 | XMS | Encounter Summary ---
Demographics + + + | Address | [address] | | | [place] [address] | + + + | Home Phone [...] Team Providers + +------+ + | Care Extension Division Director Name | Role | Phone | [...] | 2016 | | at [facility] [address] | [address] | new pt appt) | | | | [place] Mailcode: | [address] [facility] | | | | | [address] | [place] [address] | | | | | Health and Healing, | [phone] | | | | | [facility] | | | | | | floor [place], [place] | | | | | | [address] | | | | | | [phone] | | | +--------+ + + + [...]
--- OUTSIDE RECORDS SUMMARY | ~2019-09-28 | XMS | Encounter Summary ---
Demographics + + + | Address | [address] | | | [place] [address] | + + + | Home Phone [...] Team Providers + +------+ + | Care Balance Staff Staker Name | Role | Phone | + [...] | [address] | [place] [address] | | | | | [place] | [phone] | | | | | [address] | | | | | | [phone] | | | +--------+ + + + [...] [place] | | | | | | [address] | | | | | | | | +--------+---------+ + + + documented as of this encounter Visit Diagnoses Not on filedocumented in this encounter"
--- OUTSIDE RECORDS SUMMARY | ~2019-09-28 | XMS | Encounter Summary ---
Demographics + + + | Address | [address] | | | [place] [address] | + + + | Home Phone [...] Providers + +------+ + | Care Section Plotter Operator Name | Role | Phone | [...] | 2016 | Encounter | at [facility] [address] | [address] | [place] | | | | [place] Mailcode: | [facility] [address] [facility] | | | | | [address] | [place] [address] | | | | | Health and Healing, | [phone] | | | | | [place] [address] [facility] | | | | | | floor [place], [place] | | | | | | [address] | | | | | | [phone] | | | +--------+ + + + [...]
--- OUTSIDE RECORDS SUMMARY | ~2019-09-28 | XMS | Encounter Summary ---
Demographics + + + | Address | [address] | | | [place] [address] | + + + | Home Phone [...] Providers + +------+ + | Care Public Service Representative Name | Role | Phone | + +------+ + | Romy De La Paz MD | PCP | | + +------+ + Encounter Details +--------+ + + + + | Date | Type | Department | Care Team | Description | +--------+ + + + + | 07/18/ | Preadmit | [facility] | No, Physician | | | 2019 | Visit | CENTER [facility] | | | | | | CLINIC [address] | | | | | | [place], [place] | | | | | | [address] | | | | | | [phone] | | | +--------+ + + + [...] 07/18/19 encounter (Preadmit Visit) with [facility] ROOM 5 Medication Sig Instructions Ascorbic [...] by elevating your feet Date Last Reviewed: [id number] [employer]. [address] [place] [address]. All righ ts reserved. This information is [...] [place] | | | | | | [address] | | | | | | | [...] | | LABORATORY | | | | Blvd;[place] [address] | | | | + + + + + + + + | Specimen | + + | Blood | + + + + + + + | Performing | Address | City/State/Zipcode | Phone Number | | Organization | | | | + + + + + | [facility] | [address] | [place] [address] | [phone] | + + + + + MRSA [...] [facility] | | | | performed at [facility];[address] | | LABORATORY | | | | [address];[place], [place] | | | | | | [address] | | | | + + + + + + + + | Specimen | + + | Tissue - Both | | anterior nares (body | | structure) | + + + + + + + | Performing | Address | City/State/Zipcode | Phone Number | | Organization | | | | + + + + + | [facility] | [address] | [place] [address] | [phone] | + + + + + Protime INR (07/18/2019 2:26 PM PDT) + + + + + + | Component | Value | Ref Range | Performed | Pathologist | | | | | At | Signature | + + + + + + | INR | 1.0Comment: REFERENCE | | [facility] | | | | RANGE:0.9 - [...] | | | | | performed at [facility];[address] | | | | | | [address];[place] | | | | | | [address] | | | | + + + + + + + + | Specimen | + + | Blood | + + + + + + + | Performing | Address | City/State/Zipcode | Phone Number | | Organization | | | | + + + + + | [facility] | [address] | [place] [address] | [phone] | + + + + + PTT (07/18/2019 2:26 PM PDT) + + + + + + | Component | Value | Ref Range | Performed | Pathologist | | | | | At | Signature | + + + + + + | PTT | 29Comment: Testing | 23 - 32 seconds | [facility] | | | | performed at [facility];[address] | | LABORATORY | | | | [address];[place] | | | | | | [address] | | | | + + + + + + + + | Specimen | + + | Blood | + + + + + + + | Performing | Address | City/State/Zipcode | Phone Number | | Organization | | | | + + + + + | [facility] | [address] | [place] [address] | [phone] | + + + + + Comprehensive [...] | | | | | [facility], | | | | | | [place] [address] | | | | + + + + + + + + | Specimen | + + | Blood | + + + + + + + | Performing | Address | City/State/Zipcode | Phone Number | | Organization | | | | + + + + + | [facility] | [address] | [place] [address] | [phone] | + + + + + CBC [...] | | | | | [place] [address] | | | | + + + + + + + + | Specimen | + + | Blood | + + + + + + + | Performing | Address | City/State/Zipcode | Phone Number | | Organization | | | | + + + + + | [facility] | [address] | [place] [address] | [phone] | + + + + + ECG [...]
--- OUTSIDE RECORDS SUMMARY | ~2019-09-28 | XMS | Encounter Summary ---
Demographics + + + | Address | [address] | | | [place] [address] | + + + | Home Phone [...] Team Providers + +------+ + | Care Sludge Filtration Attendant Name | Role | Phone | [...] | region | [address] | [place], | | | | | Chronic low | [place], [place] | [place] [address] | | | | | back pain | [address] | Phone: | | | | | Facet | Phone: | [phone] | | | | | arthritis of | [phone] | Fax: | | | | | lumbar | Fax: | [phone] | | | | | region | [phone] | | | | | | Scoliosis [...] | | | | | | [place] OFFICE | | | | | | [...] lumbar region - | | | | [place], | [address] [place], | left L5-S1 (Primary | | | | [place] [address] | [place] [address] | Dx); Chronic low | | | | [phone] | [phone] | back pain; Facet | | | [...] [place] | | | | | | [address] | | | | | | | [...]
--- OUTSIDE RECORDS SUMMARY | ~2019-09-28 | XMS | Encounter Summary ---
Demographics + + + | Address | [address] | | | [place] [address] | + + + | Home Phone [...] Team Providers + +------+ + | Care Genetic Scientist Name | Role | Phone | [...] Management | | 2016 | | at [facility] [address] | [address] | (follow up BPs) | | | | Abbe Soto Mailcode: | [address] [place], | | | | | [address] | [place] [address] | | | | | Health and Healing, | [phone] | | | | | [place] [address] [facility] | | | | | | floor [place], [place] | | | | | | [address] | | | | | | [phone] | | | +--------+ + + + [...]
--- OUTSIDE RECORDS SUMMARY | ~2019-09-28 | XMS | Encounter Summary ---
Demographics + + + | Address | [address] | | | [place] [address] | + + + | Home Phone [...] Team Providers + +------+ + | Care Claims Adjuster Name | Role | Phone | [...] Provider Unknown | | | | | [place], [place] | | | | | | [address] | (Fax) | | | | | [phone] | | | +--------+ + + + [...] [place] | | | | | | [address] | | | | | | | [...]
--- OUTSIDE RECORDS SUMMARY | ~2019-09-28 | XMS | Encounter Summary ---
Demographics + + + | Address | [address] | | | [place] [address] | + + + | Home Phone [...] Team Providers + +------+ + | Care Spiral Tube Winder Helper Name | Role | Phone | + +------+ + PCP | Unavailable | + +------+ + Encounter Details +--------+ + + + + | Date | Type | Department | Care Team | Description | +--------+ + + + + | 12/08/ | Hospital | [facility] | | | | 1994 - | Encounter | MED CTR GENERIC PSY | | | | | | CONV DEPT [address] | | | | 12/18/ | | [place], | | | | 1992 | | [place] [address] | | | | | | [phone] | | | +--------+ + + + [...] [place] | | | | | | [address] | | | | | | | | +--------+---------+ + + + documented as of this encounter Visit Diagnoses Not on filedocumented in this encounter"
--- OUTSIDE RECORDS SUMMARY | ~2019-09-28 | XMS | Encounter Summary ---
Demographics + + + | Address | [address] | | | [place] [address] | + + + | Home Phone [...] Team Providers + +------+ + | Care Legislative Director Name | Role | Phone | [...] | Chest | Referring | [place] [address] | | | | | pressure | Provider Per | [address] | | | | | Procedures | Patient NO | [address] | | | | | AL NEW | REFERRING | [place], [place] | | | | | PATIENT | PROVIDER PER | [address] Phone: | | | | | LEVEL V AL | PT | [phone] | | | | | OFFICE/OUTPT | | Fax: | | | | | | | [phone] | | | | | VISIT,EST,LE | | | | | | | GINA III AL | | | | | | | OFFICE/OUTPT | | | | | | | | | | | | | | VISIT,EST,LE | | | | | | | VL IV AL | | | | | | | [...] | | 2015 | Visit | at [facility] [address] | [address] | unspecified type | | | | [place] Mailcode: | [address] [facility], | (Primary Dx); | | | | [address] | [place] [address] | Palpitations | | | | Health and Healing, | [phone] | | | | | [facility] | | | | | | floor [place], [place] | | | | | | [address] | | | | | | [phone] | | | +--------+---------+ + + + [...] per Dr. Fuchs's note. Tiago Blake DO Volcanology Teacher Clinical rotary peel oven tender/ Division of Cardiovascular Medicine Airam Nicole Md - 03/09/2016 3:27 PM PDT [facility] General Cardiology New Patient Evaluation Patient [...] ED. She was then transf erred to [facility] in [facility] where she was put into [...] every couple of weeks. She comes to [facility] today because she wants [...] [facility] | [id number] | [place], [place] | | | | [address] | [address] | | + + + + + documented in this encounter Visit Diagnoses + + | Diagnosis | + + | Chest pain, unspecified type - Primary | + + | Palpitations | + + documented in this encounter
--- OUTSIDE RECORDS SUMMARY | ~2019-09-28 | XMS | Encounter Summary ---
Demographics + + + | Address | [address] | | | [place] [address] | + + + | Home Phone [...] Team Providers + +------+ + | Care Paramedic Name | Role | Phone | + +------+ + PCP | Unavailable | + +------+ + Encounter Details +--------+ + + + + | Date | Type | Department | Care Team | Description | +--------+ + + + + | 08/31/ | Hospital | [facility] | | | | 2010 | Encounter | MED CTR LABORATORY | | | | | | [address] | | | | | | [place] | | | | | | [address] | | | | | | [phone] | | | +--------+ + + + [...] [place] | | | | | | [address] | | | | | | | [...] + | [facility] | [address] | [place] | [phone] | | [facility] | | [address] | | | - LABORATORY | | | | + + + + + | [facility] | [address] | [place] | | | [facility] | | [address] | | | - LABORATORY | | | | + + + + + documented in this encounter Visit Diagnoses Not on filedocumented in this encounter"
--- OUTSIDE RECORDS SUMMARY | ~2019-09-28 | XMS | Encounter Summary ---
Demographics + + + | Address | [address] | | | [place] [address] | + + + | Home Phone [...] Team Providers + +------+ + | Care Chlorinator Name | Role | Phone | + [...] [address] | | | | | [facility] [address] | [address] [facility], | | | 08/07/ | | 8th [place], [place] | [place] [address] | | | 2004 | | [address] | [phone] | | | | | [phone] | | | +--------+ + + + [...] [place] | | | | | | [address] | | | | | | | | +--------+---------+ + + + documented as of this encounter Visit Diagnoses Not on filedocumented in this encounter"
--- OUTSIDE RECORDS SUMMARY | ~2019-09-28 | XMS | Encounter Summary ---
Demographics + + + | Address | [address] | | | [place] [address] | + + + | Home Phone [...] Team Providers + +------+ + | Care Lung Splitter Name | Role | Phone | + +------+ + | Oxana Nye | PCP | | + +------+ + Encounter Details +--------+ + + + + | Date | Type | Department | Care Team | Description | +--------+ + + + + | 07/06/ | Hospital | [facility] | Spenser, | 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 | MED CTR XRAY [address] | [address] | lumbar region | | | | [place] | [place], | without myelopathy | | | | [place] [address] | [place] [address] | or radiculopathy | | | | [phone] | [phone] | (Primary Dx); | | | | | | Chronic right-sided | | | | | [address] [facility] | low back pain with | [...] [place] | | | | | | [address] | | | | | | | [...] Diagnosis: Lumbar Spondylosis ICD-10 Code M47.816 [facility] | | Joanne presents to the fluoroscopy suite for | [facility] | | fluoroscopically-guided bilateral L5-S1 facet [...] ST. | [address] | [place] | [phone] | | [facility] | | [address] | | | - IMAGING | | [...] | | | | | Other, ONCE, [facility] 07/06/16 at 1115, | | AM PDT | | | | | For 1 dose, Radiology | | | | | | + +--------+ +-------+------+------+ +---+---+ | | | +---+---+ + +-------+ +------+---+---+ | lidocaine 1% injection 1 mL 1 | Given | 07/06/20 | 1 mL | | | | mL, Other, ONCE, [facility] 07/06/16 at | | 16 11:03 [...]
--- OUTSIDE RECORDS SUMMARY | ~2019-09-28 | XMS | Encounter Summary ---
Demographics + + + | Address | [address] | | | [place] [address] | + + + | Home Phone [...] Team Providers + +------+ + | Care Tubular Splitting Machine Tender Name | Role | Phone | + +------+ + | Oxana Nye | PCP | | + +------+ + Encounter Details +--------+ + + + + | Date | Type | Department | Care Team | Description | +--------+ + + + + | 10/04/ | MyChart | Cardiology General | | Appointment Location | | 2015 | Encounter | at [facility] [address] | | Change: Effective | | | | Mcadams Brittany Mailcode: | | October 31 | | | | [address] | | | | | | Health and Healing, | | | | | | | | | | | | floor [place], [place] | | | | | | [address] | | | | | | [phone] | | | +--------+ + + + [...]
--- OUTSIDE RECORDS SUMMARY | ~2019-09-28 | XMS | Encounter Summary ---
Demographics + + + | Address | [address] | | | [place] [address] | + + + | Home Phone [...] Providers + +------+ + | Care Instrument Panel Assembler Name | Role | Phone | [...] [address] | | | | | [place], | [place], [place] | | | | | [place] [address] | [address] | | | | | [phone] | | | +--------+ + + + [...] [place] | | | | | | [id number] | | | | | | | | +--------+---------+ + + + documented as of this encounter Visit Diagnoses Not on filedocumented in this encounter"
--- OUTSIDE RECORDS SUMMARY | ~2019-09-28 | XMS | Encounter Summary ---
Demographics + + + | Address | [address] | | | [place] [address] | + + + | Home Phone [...] Team Providers + +------+ + | Care Herb Grower Name | Role | Phone | + [...] + + | 04/03/ | Telephone | [facility] | Nick Martinez, | Medication Question | | 2017 | | PHYSIATRY [address] | PA-C [address] | | | | | [place], | [address] [place] | | | | | [place] [address] | [place] [address] | | | | | [phone] | [phone] | | | | | | | [...] [place] | | | | | | [address] | | | | | | | | +--------+---------+ + + + documented as of this encounter Visit Diagnoses Not on filedocumented in this encounter"
--- OUTSIDE RECORDS SUMMARY | ~2019-09-28 | XMS | Encounter Summary ---
Demographics + + + | Address | [address] | | | [place] [address] | + + + | Home Phone [...] Team Providers + +------+ + | Care Decision Support Analyst Name | Role | Phone [...] 2013 | | PHYSIATRY [address] | LOG SCALER | (Primary Dx) | | | | [place], | | | | | | [place] [address] | | | | | | [phone] | | | +--------+ + + + [...] [place] | | | | | | [address] | | | | | | | [...] radiculopathy ICD-9 Code 724.4 Ms. Sheikh | [facility] | | Joanne presents to the fluoroscopy suite for a [facility] | | fluoroscopically-guided left L5-S1 transforaminal epidural [...] [address] | [place] | [phone] | | [facility] | | [address] | | | - IMAGING | | | | + + + + + documented in this encounter Visit Diagnoses + + | Diagnosis | + + | Lumbar radiculopathy - Primary Thoracic or lumbosacral neuritis or radiculitis, | | unspecified | + + documented in this encounter"
--- OUTSIDE RECORDS SUMMARY | ~2019-09-28 | XMS | Encounter Summary ---
Demographics + + + | Address | [address] | | | [place] [address] | + + + | Home Phone [...] Providers + +------+ + | Care Relay Mechanic Name | Role | Phone | [...] 2013 | | PHYSIATRY [address] | LINE CONSTRUCTION ENGINEER | | | | | [place], | | | | | | [place] [address] | | | | | | [phone] | | | +--------+ + + + [...] [place] | | | | | | [address] | | | | | | | | +--------+---------+ + + + documented as of this encounter Visit Diagnoses Not on filedocumented in this encounter"
--- OUTSIDE RECORDS SUMMARY | ~2019-09-28 | XMS | Encounter Summary ---
Demographics + + + | Address | [address] | | | [place] [address] | + + + | Home Phone [...] Team Providers + +------+ + | Care Cinder Block Mason Name | Role | Phone [...] | | 2016 | Encounter | at [facility] [address] | [address] [address] [facility] | | | | | [place] Mailcode: | [facility] [address], | | | | | [address] | [place] [address] | | | | | Health and Healing, | [phone] | | | | | [facility] | | | | | | floor [place], [place] | | | | | | [address] | | | | | | [phone] | | | +--------+ + + + [...]
--- OUTSIDE RECORDS SUMMARY | ~2019-09-28 | XMS | Encounter Summary ---
Demographics + + + | Address | [address] | | | [place] [address] | + + + | Home Phone [...] Providers + +------+ + | Care Assembler Finger Buffs Name | Role | Phone | + [...] + | 07/24/ | Telephone | [facility] | Maykel Hutchins MD | Pre-op Question | | 2019 | | [facility] | [address] | | | | | ORTHOPEDIC SPINE | [place] | | | | | [address] [place] | [place] [address] | | | | | [place] | [phone] | | | | | [address] | | | | | | [phone] | | | +--------+ + + + [...] [place] | | | | | | [address] | | | | | | | | +--------+---------+ + + + documented as of this encounter Visit Diagnoses Not on filedocumented in this encounter"
--- OUTSIDE RECORDS SUMMARY | ~2019-09-28 | XMS | Encounter Summary ---
Demographics + + + | Address | [address] | | | [place] [address] | + + + | Home Phone [...] Team Providers + +------+ + | Care Lobby Porter Name | Role | Phone | + [...] | | 2012 | | [facility] | [address] | | | | | Pav[address] | [place]iana [place], | | | | | [address] | [place] [address] | | | | | Aravind Hannon | [phone] | | | | | [place], [place] | | | | | | [address] | | | | | | [phone] | | | +--------+ + + + [...]
--- OUTSIDE RECORDS SUMMARY | ~2019-09-28 | XMS | Encounter Summary ---
Demographics + + + | Address | [address] | | | [place] [address] | + + + | Home Phone [...] Team Providers + +------+ + | Care Precinct Police Captain Name | Role | Phone | [...] [address] | | | | | [place] | [address] [place], [place] | | | | | [place] [address] | [address] | | | | | [phone] | | | +--------+ + + + [...] [place] | | | | | | [address] | | | | | | | | +--------+---------+ + + + documented as of this encounter Visit Diagnoses Not on filedocumented in this encounter"
--- OUTSIDE RECORDS SUMMARY | ~2019-09-28 | XMS | Encounter Summary ---
Demographics + + + | Address | [address] | | | [place] [address] | + + + | Home Phone [...] Providers + +------+ + | Care Animal Technician Name | Role | Phone | [...] + + | 11/01/ | Telephone | [facility] | Shay Dietz | Medication Problem | | 2012 | | PHYSIATRY [address] | T, [address] | | | | | [place], | [place], [place] | | | | | [place] [address] | [address] | | | | | [phone] | | | +--------+ + + + [...] [place] | | | | | | [address] | | | | | | | | +--------+---------+ + + + documented as of this encounter Visit Diagnoses + + | Diagnosis | + + | Back pain - Primary Backache, unspecified | + + documented in this encounter"
--- OUTSIDE RECORDS SUMMARY | ~2019-09-28 | XMS | Encounter Summary ---
Demographics + + + | Address | [address] | | | [place] [address] | + + + | Home Phone [...] Team Providers + +------+ + | Care Stripper Black And White Name | Role | Phone | + [...] | | | | | bilateral | [place], [place] | | | | | | low back | [address] | | | | | | pain with | Phone: | | | | | | right-sided | [phone] | | | | | | sciatica | Fax: | | | | | | | [phone] | | + + + + + [...] | | | | | | ID SURG | | | | | | | IMPLNT | | | | | | | NEUROELECT,E | | | | | | | PIDURAL ID | | | | | | | IMPLANT | | | | | | | NEUROSTIM/RE | | | | | | | CEIVER ID | | | | | | [...] + | 08/03/ | Hospital | [facility] | Maykel Hutchins MD | BACK PAIN, LUMBAR | | 2019 - | Encounter | [facility] | [address] | (Primary Dx); | | | | CARE FLOOR [address] | [place], | Chronic bilateral | | 08/04/ | | [address] | [place] [address] | low back pain with | | 2019 | | [place] | [phone] | right-sided sciatica | | | | [address] | | | | | | [phone] | | | +--------+ + + + [...] note might be different from logan phillips. [facility]. 08/04/2019 DISCHARGE SUMMARY PATIENT NAME: Kori [...] by elevating your feet Date Last Reviewed: 7343-3317 [employer]. [address] [place] [address], [place] [address]. All righ ts reserved. This information is not intended as a substitute for professional medical care. Always follow your healthcare professional's instructions. Acetaminophen; Hydrocodone tablets or capsules Brand Names: Anexsia, Lorcet, Lorcet HD, Lorcet Plus, Lortab, Mcandrews, Verdrocet, Vicodin, Vi codin ES, Vicodin HP, [...] information carefully each time. Talk to your stripper cutter machine regarding the use of this medicine in children. Special care may be needed. What side effects may I notice from receiving this medicine? Side effects that you should report to your doctor or health medicare coordinator as soon as p ossible: allergic [...] attention (report to your doctor or health medicare coordinator if they continue or are bothersome): [...] to an official disposal site. Contact the [facility] at [phone] or your [facility] [place] [facility] to find a site. If you [...] this medicine? Tell your doctor or health medicare coordinator if your pain does not go [...] pharmacist, or health care provider. Copyright 2019 [employer] documented in this encounter Medications at Time [...] Faria MSW - 08/04/2019 2:12 PM PDTCase cash manager sent out Home Health order to [...] up today to go home to [facility]. Past Medical History: Diagnosis Date Acid reflux disease Acute renal failure ([facility]) April 2013 Adverse effect of anesthesia hx hallucinations after anesthesia x 3 yrs ago. Anesthesia hallucinated after bladder repair Arthralgia Arthritis Asthma Asthma Back pain Cancer ([facility]) 2004 breast Cataract Cerebrovascular accident (CVA) ([facility]) no per pt Chronic back pain Chronic back pain Chronic constipation Concussion 07/2015 Preceeded by seizure Constipation COPD (chronic obstructive pulmonary disease) ([facility]) Degenerative disc disease Depression Depression Diabetes mellitus ([facility]) Diabetes mellitus, type 2 ([facility]) diet controlled Diabetes type 2, controlled ([facility]) diet controlled Diarrhea Disorder of [...] Scoliosis Scoliosis of lumbar spine 04/17/2014 Seizure ([facility]) one due to meds, two [...] 100 mg Oral BID PRN Julien Ang, LEASING SALES CONSULTANT HYDROcodone-acetaminophen (NORCO) 10-325 mg per tablet 1 tablet 1 tablet Oral Q4H PRN Julien Ang, LEASING SALES CONSULTANT 1 tablet at 08/04/19 0502 HYDROmorphone (DILAUDID) injection 0.2-0.4 mg 0.2-0.4 mg Intravenous Q1H PRN Maykel ortiz MD 0.2 mg at 08/03/19 1700 methocarbamol (ROBAXIN) tablet 1,500 mg 1,500 mg Oral Q6H PRN Julien Guzman, LEASING SALES CONSULTANT ondansetron (ZOFRAN ODT) disintegrating tablet 4 mg 4 mg Oral Q6H PRN Julien Guzman, LEASING SALES CONSULTANT rOPINIRole (REQUIP) tablet 4 mg 4 mg Oral 4x Daily PRN Maykel Hutchins MD senna (SENOKOT) tablet 8.6 mg 8.6 mg Oral BID PRN Julien Guzman, LEASING SALES CONSULTANT sodium chloride 0.45% (1/2 NS) infusion Intravenous Continuous Maykel Hutchins MD 100 mL /hr at 08/03/19 1342 950 mL at 08/03/19 1342 sodium chloride 0.45% (1/2 NS) infusion Intravenous Continuous Julien Guzman, LEASING SALES CONSULTANT 100 m L/hr at 08/04/19 0057 [...] [place] | | | | | | [address] | | | | | | | [...] | | | Needs | | | FURNACE CARETAKER | | | reques | | | [...] POC | performed at [facility];8 | | LABORATORY | | | | [address];[place], [place] | | | | | | [address] | | | | + + + + + + + + | Specimen | + + | | + + + + + + + | Performing | Address | City/State/Zipcode | Phone Number | | Organization | | | | + + + + + | [facility] | [address] | [place] [address] | [phone] | + + + + + POC Glucose (08/03/2019 4:15 PM PDT) + + + + + + | Component | Value | Ref Range | Performed | Pathologist | | | | | At | Signature | + + + + + + | Glucose, | 99Comment: Testing | 65 - 99 mg/dL | [facility] | | | POC | performed at [facility];[address] | | LABORATORY | | | | [address];[place] | | | | | | [address] | | | | + + + + + + + + | Specimen | + + | | + + + + + + + | Performing | Address | City/State/Zipcode | Phone Number | | Organization | | | | + + + + + | [facility] | [address] | [place] [address] | [phone] | + + + + + POC [...] | LABORATORY | | | | [address];[place] | | | | | | [address] | | | | + + + + + + + + | Specimen | + + | | + + + + + + + | Performing | Address | City/State/Zipcode | Phone Number | | Organization | | | | + + + + + | [facility] | [address] | [place] [address] | [phone] | + + + + + POC Glucose (08/03/2019 11:05 AM PDT) + + + + + + | Component | Value | Ref Range | Performed | Pathologist | | | | | At | Signature | + + + + + + | Glucose, | 108 (H)Comment: Testing | 65 - 99 mg/dL | [facility] | | | POC | performed at [facility];[address] | | LABORATORY | | | | [address];[place] | | | | | | [address] | | | | + + + + + + + + | Specimen | + + | | + + + + + + + | Performing | Address | City/State/Zipcode | Phone Number | | Organization | | | | + + + + + | [facility] | [address] | [place] [address] | [phone] | + + + + + [place] [...] [place] | | | | | | [address] | | | | + + + + + + + + | Specimen | + + | | + + + + + + + | Performing | Address | City/State/Zipcode | Phone Number | | Organization | | | | + + + + + | [facility] | [address] | [place] [address] | [phone] | + + + + + POC Glucose (08/03/2019 9:14 AM PDT) + + + + + + | Component | Value | Ref Range | Performed | Pathologist | | | | | At | Signature | + + + + + + | Glucose, | 80Comment: Testing | 65 - 99 mg/dL | [facility] | | | POC | performed at [facility];[address] | | LABORATORY | | | | [address];[place] | | | | | | [address] | | | | + + + + + + + + | Specimen | + + | | + + + + + + + | Performing | Address | City/State/Zipcode | Phone Number | | Organization | | | | + + + + + | [facility] | [address] | [place] [address] | [phone] | + + + + + Type [...] + + + | BB BAND | [id number] | | [facility] | | | | | | LABORATORY | | + + + + + + | BB BAND | Testing performed at | | [facility] | | | | [facility];[address] | | LABORATORY | | | | [address];[place] [address] | | | | + + + + + + + + | Specimen | + + | Blood | + + + + + + + | Performing | Address | City/State/Zipcode | Phone Number | | Organization | | | | + + + + + | [facility] | [address] | [place] [address] | [phone] | + + + + + POC [...] | LABORATORY | | | | [address];[place], [place] | | | | | | [address] | | | | + + + + + + + + | Specimen | + + | | + + + + + + + | Performing | Address | City/State/Zipcode | Phone Number | | Organization | | | | + + + + + | [facility] | [address] | [place] [address] | [phone] | + + + + + documented [...] | | | | | | longer, gioekh-yka-vxrxs use of | | | | | [...] | | | | | | | mzvkct-ozl-tyves use of at least | | | [...]
--- OUTSIDE RECORDS SUMMARY | ~2019-09-28 | XMS | Encounter Summary ---
Demographics + + + | Address | [address] | | | [place] [address] | + + + | Home Phone [...] Providers + +------+ + | Care Creative Writer Name | Role | Phone | [...] + | 08/05/ | Office | [facility] | [place], | Foraminal stenosis | | 2013 | Visit | PH[address]SIATRY [address] | [address] | of lumbar region - | | | | [place], | MICHAEL MEDELLIN [place], | left L5-S1 (Primary | | | | [place] [address] | [place] [address] | Dx); Left lumbar | | | | [phone] | [phone] | radiculopathy; DDD | | | | [...] of the procedure you must provide a highway truck driver to take you home. For [...] no apparent deficits with short or termite control service representative memory. She has appropriate fund of knowledge [...] along with flexion/extension xray's perf ormed in [place] last week. I will request for these [...] [place] | | | | | | [address] | | | | | | | [...] | | Lumbar radiculopathy ICD-9 Code 724.4 oKri Caputo | [facility] | | Joanne presents to the fluoroscopy suite for a [facility] | | fluoroscopically-guided left L5-S1 [...] [address] | [place] | [phone] | | [facility] | | [address] | | | - IMAGING | | [...]
--- OUTSIDE RECORDS SUMMARY | ~2019-09-28 | XMS | Encounter Summary ---
Demographics + + + | Address | [address] | | | [place] [address] | + + + | Home Phone [...] Providers + +------+ + | Care Scientific Writer Name | Role | Phone | [...] 2013 | | PHYSIAT[address] | CARDIAC CATH TECH | (Primary Dx) | | | | [place], | | | | | | [place] [address] | | | | | | [phone] | | | +--------+ + + + [...] [place] | | | | | | [address] | | | | | | | [...] radiculopathy ICD-9 Code 724.4 Ms. Sheikh | [facility] | | Joanne presents to the fluoroscopy suite for a [facility] | | fluoroscopically-guided left L5-S1 transforaminal [...] [address] | [place] | [phone] | | [facility] | | [address] | | | - IMAGING | | | | + + + + + documented in this encounter Visit Diagnoses + + | Diagnosis | + + | Lumbar radiculopathy - Primary Thoracic or lumbosacral neuritis or radiculitis, | | unspecified | + + documented in this encounter"
--- OUTSIDE RECORDS SUMMARY | ~2019-09-28 | XMS | Encounter Summary ---
Demographics + + + | Address | [address] | | | [place] [address] | + + + | Home Phone [...] Team Providers + +------+ + | Care Printer Maintainer Name | Role | Phone | + +------+ + | Wendi Aiken | PCP | | + +------+ + Encounter Details +--------+ + + + + | Date | Type | Department | Care Team | Description | +--------+ + + + + | 06/07/ | Hospital | [facility] | Conversion | | | 2018 | Encounter | CENTER [facility] | Transaction, | | | | | CLINIC [address] | Provider Unknown | | | | | [place], [place] | | | | | | [address] | (Fax) | | | | | [phone] | | | +--------+ + + + [...] [place] | | | | | | [address] | | | | | | | [...] | | | Basophils | performed at [facility], [address] | K/uL | LAB | | | | [address], | | | | | | [place] [address] | | | | + + + [...] W | | | | | | [facility], | | | | | | [place] [address] | | | | + + + [...]
--- OUTSIDE RECORDS SUMMARY | ~2019-09-28 | XMS | Encounter Summary ---
Demographics + + + | Address | [address] | | | [place] [address] | + + + | Home Phone [...] Providers + +------+ + | Care Director Stars Name | Role | Phone | + [...] + + | 12/19/ | Office | [facility] | Shay Dietz | Chronic low back | | 2013 | Visit | [address]SIATRY [address] | [address] | pain (Primary Dx); | | | | [place], | [place], [place] | Facet arthritis of | | | | [place] [address] | [address] | lumbar region; Left | | | | [phone] | | lumbar | | | | [...] [place] | | | | | | [address] | | | | | | | [...]
--- OUTSIDE RECORDS SUMMARY | ~2019-09-28 | XMS | Encounter Summary ---
Demographics + + + | Address | [address] | | | [place] [address] | + + + | Home Phone [...] Providers + +------+ + | Care Mold Maker Plaster Name | Role | Phone | + +------+ + PCP | Unavailable | + +------+ + Encounter Details +--------+ + + + + | Date | Type | Department | Care Team | Description | +--------+ + + + + | 06/26/ | Respiratory | | Other, Faculty | | | 2006 | Therapy | | [phone] | | +--------+ + + + + [...] Hassan, | | | | | | PANTOMIMIST | | | | + + + [...] RAD[facility] ALON[facility] | [address] | [place], [place] | | | DIAGNOSTICS - | [place] | [address] | | | PULMONARY FUNCTION | | | | + + + + + documented in this encounter Visit Diagnoses Not on filedocumented in this encounter"
--- OUTSIDE RECORDS SUMMARY | ~2019-09-28 | XMS | Encounter Summary ---
Demographics + + + | Address | [address] | | | [place] [address] | + + + | Home Phone [...] Team Providers + +------+ + | Care Snow Ranger Name | Role | Phone | [...] Vasquez VALDEZ | | | | | [phone] | [place] [address] | | +--------+ + + + + [...] | | | | | | [facility] [place] | | | | | | [address] | | | | | | | [...]
--- OUTSIDE RECORDS SUMMARY | ~2019-09-28 | XMS | Encounter Summary ---
Demographics + + + | Address | [address] | | | [place] [address] | + + + | Home Phone [...] Providers + +------+ + | Care Science Analyst Name | Role | Phone | + +------+ + | Concepción Gallardo NP | PCP | | + +------+ + Encounter Details +--------+ + + + + | Date | Type | Department | Care Team | Description | +--------+ + + + + | 08/05/ | Hospital | [facility] | Shirahumble, | Foraminal stenosis | | 2013 | Encounter | MED CTR XRAY [address] | [address] | of lumbar region - | | | | [place] | [place], | left L5-S1; Left | | | | [place] [address] | [place] [address] | lumbar | | | | [phone] | [phone] | radiculopathy; DDD | | | | | | (degenerative disc | | | | | Sign Letterer, Ws | disease), lumbar; | | | [...] [place] | | | | | | [address] | | | | | | | [...] presents to the fluoroscopy suite for a [facility] | | fluoroscopically-guided left L5-S1 transforaminal epidural [...] + + + + + | [facility] | [address] | [place] | [phone] | | [facility] | | [address] | | | - IMAGING | | [...]
--- OUTSIDE RECORDS SUMMARY | ~2019-09-28 | XMS | Encounter Summary ---
Demographics + + + | Address | [address] | | | [place] [address] | + + + | Home Phone [...] Providers + +------+ + | Care Photovoltaic Technician Name | Role | Phone | [...] | [address] [place] | [place] [address] | | | | | [place] | [phone] | | | | | [address] | | | | | | [phone] | | | +--------+ + + + [...] [place] | | | | | | [address] | | | | | | | | +--------+---------+ + + + documented as of this encounter Visit Diagnoses Not on filedocumented in this encounter"
--- OUTSIDE RECORDS SUMMARY | ~2019-09-28 | XMS | Encounter Summary ---
Demographics + + + | Address | [address] | | | [place] [address] | + + + | Home Phone [...] Team Providers + +------+ + | Care Buffing Machine Operator Semiautomatic Name | Role | [...] + + | 08/31/ | Telephone | [facility] | Niki Pizarro, | Other (patient | | 2019 | | NEUROSURGERY [address] | RN | trying to reach | | | | [place]DS | | [facility]'s office) | | | | [place] | | | | | | [address] | | | | | | [phone] | | | +--------+ + + + [...] [place] | | | | | | [address] | | | | | | | | +--------+---------+ + + + documented as of this encounter Visit Diagnoses Not on filedocumented in this encounter"
--- OUTSIDE RECORDS SUMMARY | ~2019-09-28 | XMS | Encounter Summary ---
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 Removed Ranitidine and Myrbetriq from med list as these have not been filled in the last 3 months. Please see [employer] med list for updated medication list. Electronically [...] [place] | | | | | | [id number] | | | | | | | [...] L?MRN: | | | | | | [id number] | | | [id number] | | | ecurit | | | [...] | | | St. | | | [place] | | | y | | | [...] | | | St. | | | [place] | | | y H. | | [...] | | | St. | | | [place] | | | y H. | | [...] | | | St. | | | [place] | | | y H. | | [...] | | | St. | | | [place] | | | y H. | | [...] | | | St. | | | [place] | | | y H. | | [...] | | | St. | | | [place] | | | y H. | | [...] | | | St. | | | [place] | | | y | | | [...] | | | L | | | STAFFING RN | | | , MD 2 | [...] + + | [facility] | [address] | [place] [address] | [phone] | | HOSPITAL LAB[facility]ORY | | | [...] + + | [facility] | [address] | [place] [address] | [phone] | | HOSPITAL LAB[facility]ATORY | | | [...] | | HOSPITAL | | | | Antipyretic/Hhkfaqais85. | | LABORATORY | | | | [...] + + | [facility] | [address] | [place] [address] | [phone] | | HOSPITAL LAB[facility]ATORY | | | [...] + + | [facility] | [address] | [place] [address] | [phone] | | HOSPITAL LAB[facility]ATORY | | | [...] | mL/min/1.73m2 | [facility] | | | SENEGALESE | RATE,ESTIMATED | | HOSPITAL | | | | mL/min/1.43q7Bbvj than | | LABORATORY | | | [...] + + | [facility] | [address] | [place] [address] | [phone] | | HOSPITAL LAB[facility]ATORY | | | [...] + + | [facility] | [address] | [place] [address] | [phone] | | HOSPITAL LAB[facility]ATORY | | | [...] + + | [facility] | [address] | [place] [address] | [phone] | | HOSPITAL LABORATORY | | | [...] - 1.030 | [facility] | | | [place] | | | [facility] | | [...] + + | [facility] | [address] | [place] [address] | [phone] | | HOSPITAL LAB[facility]ATORY | | | [...] the attending | LABORATORY | | physician. Bdfm-tea-jndrzvj drugs may cross react with some methods. [...] | + + + + + | [facility] | [address] | [place] [address] | [phone] | | HOSPITAL LABORATORY | | | [...]
--- OUTSIDE RECORDS SUMMARY | ~2019-09-28 | XMS | Encounter Summary ---
Demographics + + + | Address | [address] | | | [place] [address] | + + + | Home Phone [...] Providers + +------+ + | Care General Inspector Name | Role | Phone | [...] | | | stenosis | B | [address] | | | | | | [place], [place] | Phone: | | | | | | [address] | [phone] | | | | | | Phone: | Fax: | | | | | | [phone] | [phone] | | | | | | Fax: | | | | | | | [phone] | | + +--------+ + + + + Encounter Details +--------+---------+ + + + | Date | Type | Department | Care Team | Description | +--------+---------+ + + + | 08/16/ Office | [facility] | Denys Sibley, | S/P insertion of | | 2018 | Visit | [facility] | DO [address] | spinal cord | | | | [address]OLOGY [address] | [address] [place] | stimulator (Primary | | | | [address] [place] | [address] | Dx); Spinal stenosis | | | | [place], [place] | | of lumbosacral | | | | [address] | | region; Intractable | | | | [phone] | | back pain; Encounter | | [...] anterior chest wall every 72 hours, and [place] 7.5/325 1 p.o. every 6 hours as [...] Screen 08/03/2019 NEGATIVE Final BB BAND 08/03/2019 [id number] Final BB BAND 08/03/2019 Testing performed at [facility];[address] [place] [address];[place] [address] Final Glucose, POC 08/03/2019 77 65 - [...] Final Antibody Screen 07/18/2019 Testing performed at [facility];[address] [place] [address];[place] [address] Final SOURCE: 07/18/2019 NARES(NOSE) Final Result 07/18/2019 [...] therapy, mass age therapy, acupuncture, ambulatory care coordinator, along with recommended psychological counseling [...] every 72 hours con tinue with the [place] 10/325 1 p.o. every 6 hours as needed breakthrough pain and Robaxin 500 mg every 6 hours as needed muscle spasms Patient understands and is in full agreement with the above plan, Will return to office in 4 weeks, [facility] was consulted and appears appropriate, Urine [...] and complications with the passage of time. alf use is also associated with depressions, and [...] [place] | | | | | | [address] | | | | | | | [...]
--- OUTSIDE RECORDS SUMMARY | ~2019-09-28 | XMS | Clinical Summary ---
Demographics + + + | Address | [address] | | | [place] [address] | + + + | Home Phone [...] Team Providers + +------+ + | Care Binding Cementer French Cord Name | Role | Phone | + [...] cord | | | | | | peetr) | | stimulator, Spinal | | | [...] Overview: Added automatically from request for surgery [id number] | + + + + + | Spondylosis without myelopathy or radiculopathy, lumbosacral | 03/20/2019 | | region | | + + + + + | Overview: Added automatically from request for surgery [id number] | + + + + + | Chronic bilateral low back pain without sciatica | 03/20/2019 | + + + + + | Overview: Added automatically from request for surgery [id number] | + + + + + | Intervertebral disc disorders with radiculopathy, lumbosacral | 02/25/2019 | | region | | + + + + + | Overview: Added automatically from request for surgery [id number] | + + + + + | Chronic low back pain with sciatica | 02/25/2019 | + + + + + | Overview: Added automatically from request for surgery [id number] | + + + + + | Lumbar region somatic dysfunction | 02/25/2019 | + + + + + | Overview: Added automatically from request for surgery [id number] | + + + + + | Strain of lumbar region | 02/25/2019 | + + + + + | Overview: Added automatically from request for surgery [id number] | + + + + + | Spinal stenosis of lumbosacral region | 02/25/2019 | + + + + + | Overview: Added automatically from request for surgery [id number] | + + + + + | [...] Overview: Added automatically from request for surgery [id number] | | Problem List Rubber Compounder Utility | + + + + + [...] | + +---+ + + | Overview: CHRISKeevn [id number] Decision | + + + +---+ | [...] [place] | | | | | | [address] | | | | | | | [...] | | 03/04/ | [id number] | | [id number]: Qty: 1 | ogical | Spine | MEDICAL - | | 2020 | S | | on 08/03/2019 by Cuong, | | Lumbar | MODESTA | | | /[id number] | | MD Maykel at [facility] | Stimul | | | | | 444 | | [facility] | ator | | | | [...] | | 11/23/ | [id number] | | [id number]: Qty: 1 on | | | MEDICAL - | | 2020 | S | | 03/28/2019 by Sonja, | | | STJU | | | /[id number] | | DO Alfredo | | | | | | 330 / | + +--------+--------+ +--------+--------+--------+ | Proclaim 5 EliteImplanted: | | N/A: | ST CASEY | | 01/15/ | 3660 | | Qty: 1 on 08/03/2019 by Cuong, | | Spine | MEDICAL - | 2020 | /[id number] | | MD Maykel at [facility] | | Lumbar | STJU | | | 6.1 | | [facility] | | | | | | [...] | | | Needs | | | CUSTOMER SERVICE REPRESENTATIVE | | | reques | | | [...] Testing | 65 - 99 mg/dL | [facility] | | | POC | performed at [facility];[address] | | LABORATORY | | | | Rosenda Donnelly;[place] | | | | | | [address] | | | | + + + + + + + + | Specimen | + + | | + + + + + + + | Performing | Address | City/State/Zipcode | Phone Number | | Organization | | | | + + + + + | [facility] | [address] | [place] [address] | [phone] | + + + + + LINSEY [...] - 08/03/2019 9:52 AM PDT Anesthesia Airway Xalpdesqq06/4/2019 | | 9:33Preprocedure check: patient identified, oxygen, [...] + + + | BB BAND | [id number] | | [facility] | | | | | | LABORATORY | | + + + + + + | BB BAND | Testing performed at | | [facility] | | | | [facility];[address] | | LABORATORY | | | | [place]rzej;[place] [address] | | | | + + + + + + + + | Specimen | + + | Blood | + + + + + + + | Performing | Address | City/State/Zipcode | Phone Number | | Organization | | | | + + + + + | [facility] | [address] | [place] [address] | [phone] | + + + + + XR [...] [facility] | | | | performed at [facility];[address] | | LABORATORY | | | | Rosenda Donnelly;[place] | | | | | | [address] | | | | + + + + + + + + | Specimen | + + | Tissue - Both | | anterior nares (body | | structure) | + + + + + + + | Performing | Address | City/State/Zipcode | Phone Number | | Organization | | | | + + + + + | [facility] | [address] | [place] [address] | [phone] | + + + + + PTT (07/18/2019 2:26 PM PDT) + + + + + + | Component | Value | Ref Range | Performed | Pathologist | | | | | At | Signature | + + + + + + | PTT | 29Comment: Testing | 23 - 32 seconds | [facility] | | | | performed at [facility];[address] | | LABORATORY | | | | Rosenda Donnelly;[place] | | | | | | [address] | | | | + + + + + + + + | Specimen | + + | Blood | + + + + + + + | Performing | Address | City/State/Zipcode | Phone Number | | Organization | | | | + + + + + | [facility] | [address] | [place] [address] | [phone] | + + + + + Protime [...] | | | | | performed at [facility];[address] | | | | | | [address]enda Donnelly;[place], [place] | | | | | | [address] | | | | + + + + + + + + | Specimen | + + | Blood | + + + + + + + | Performing | Address | City/State/Zipcode | Phone Number | | Organization | | | | + + + + + | [facility] | [address] | [place] [address] | [phone] | + + + + + CBC [...] | | | Absolute | performed at [facility], [address] | K/uL | LABORATORY | | | | Josue Donnelly, | | | | | | [place] [address] | | | | + + + + + + + + | Specimen | + + | Blood | + + + + + + + | Performing | Address | City/State/Zipcode | Phone Number | | Organization | | | | + + + + + | [facility] | [address] | [place] [address] | [phone] | + + + + + Comprehensive [...] | >60Comment: GFR <60: | >60 | [facility] | | | GFR | CHRONIC [...] | | | | | | MDRD IDMA traceable | | | | | | equation.Testing | | | | | | performed at [facility], [address] | | | | | | [facility], | | | | | | [place] [address] | | | | + + + + + + + + | Specimen | + + | Blood | + + + + + + + | Performing | Address | City/State/Zipcode | Phone Number | | Organization | | | | + + + + + | [facility] | [address] | [place] [address] | [phone] | + + + + + ECG [...] +---------+--------+ | INDIVIDUAL ASSURANCE | INDIVI | [id number] | | | | Indemn | | [...] +--------+ +---------+--------+ | MEDICARE | MEDICA | [id number] | | [phone] | | Medica | | | RE | | 991-Pr | 5 | | re | | | PART A | | esent | | | | | | AND B | | | | | | + +--------+ +--------+ +---------+--------+ | MEDICARE | MEDICA | [id number] | | [phone] | | Medica | | | RE | | 991-Pr | 5 | | re | | | PART A | | esent | | | | | | AND B | | | | | | + +--------+ +--------+ +---------+--------+ | MEDICARE | MEDICA | [id number] | | [phone] | | Medica | | | RE | | 991-Pr | 5 | | re | | | PART A | | esent | | | | | | AND B | | | | | | + +--------+ +--------+ +---------+--------+ | MEDICARE | MEDICA | [id number] | | [phone] | | Medica | | | RE | | 991-Pr | 5 | | re | | | PART A | | esent | | | | | | AND B | | | | | | + +--------+ +--------+ +---------+--------+ | INDIVIDUAL ASSURANCE | INDIVI | [id number] | | | | Indemn | | [...] +---------+--------+ | INDIVIDUAL ASSURANCE | INDIVI | [id number] | | | | Indemn | | [...] +---------+--------+ | INDIVIDUAL ASSURANCE | INDIVI | [id number] | | | | Indemn | | [...] | 1945 | [phone] | [place] [address] | | | jose | | | 8 (Home) | | + +--------+ +--------+ + + | Tyrese Rubio | Person | Self | [birth year] | [address] | | mandeep H[place] | al/Fam | | 1945 | [phone] | [place] [address] | | | jose | | | 8 (Home) | | + +--------+ +--------+ + + | Tyrese Rubio | Person | Self | [birth year] | [address] | | mandeep [place] | al/Fam | | 1945 | [phone] | [place] [address] | | | jose | | | 8 (Home) | | + +--------+ +--------+ + + | Tyrese Rubio | Person | Self | [birth year] | [address] | | mandeep [place] | al/Fam | | 1945 | [phone] | [place] [address] | | | jose | | | 8 (Home) | | + +--------+ +--------+ + + Advance Directives + + + + + | Type | Date Recorded | Patient | Explanation | | | | Plate Furnace Operator | | + + + + + | Power of | | | | | Mission Analyst | | | | + + + [...]
--- OUTSIDE RECORDS SUMMARY | ~2019-09-28 | XMS | Encounter Summary ---
Demographics + + + | Address | [address] | | | [place] [address] | + + + | Home Phone [...] Team Providers + +------+ + | Care Whizzer Hand Name | Role | Phone | + +------+ + | Romy De La Paz MD | PCP | | + +------+ + Encounter Details +--------+ + + + + | Date | Type | Department | Care Team | Description | +--------+ + + + + | 10/18/ | Telephone | [facility] | Shay Dietz | | | 2012 | | MEDICINE [address] | MD Lonny [address] | | | | | [address] [facility] | [place], [place] | | | | | [place] [address] | [address] | | | | | [phone] | | | +--------+ + + + [...] [place] | | | | | | [address] | | | | | | | | +--------+---------+ + + + documented as of this encounter Visit Diagnoses Not on filedocumented in this encounter"
--- OUTSIDE RECORDS SUMMARY | ~2019-09-28 | XMS | Encounter Summary ---
Demographics + + + | Address | [address] | | | [place] [address] | + + + | Home Phone [...] Providers + +------+ + | Care Pipe Roller Name | Role | Phone | [...] + + | 08/03/ | Anesthesia | [facility] | Yojana Arellano CRNA | | | 2019 | Event [facility] | [address] | | | | | OPERATING ROOM [address] | [place] [address] | | | | | [address] | [phone] | | | | | [place], [place] | | | | | | [address] | | | | | | [phone] | | | +--------+ + + + [...] +----+---+ + + | | 0 | [place] | | | | 9 | 43-degrees [...] [address] | | eral | Antecubital; [id number] | Mikayla Marcial, | Gamal Whitney, | [...] | | | | | | DRIVE [place], [place] | | | | | | [address] | | | | | | | [...] - 08/03/2019 9:52 AM PDT Anesthesia Airway Llqtiiwfm59/4/2019 | | 9:33Preprocedure check: patient identified, oxygen, [...]
--- OUTSIDE RECORDS SUMMARY | ~2019-09-28 | XMS | Encounter Summary ---
Demographics + + + | Address | [address] | | | [place] [address] | + + + | Home Phone [...] Author | [facility] | | | and Priteshana | + [...] Team Providers + +------+ + | Care Jr. Systems Administrator Name | Role | Phone | + +------+ + | Miquel Calhoun MD | PCP | | + +------+ + Encounter Details +--------+ + + + + | Date | Type | Department | Care Team | Description | +--------+ + + + + | 09/18/ | Hospital | [facility] | Shay Dietz | | | 2012 | Encounter | MED CTR XRAY [address] | [address] | | | | | [place] | [place], [place] | | | | | [place] [address] | [address] | | | | | [phone] | | | +--------+ + + + [...] [place] | | | | | | [address] | | | | | | | | +--------+---------+ + + + documented as of this encounter Visit Diagnoses Not on filedocumented in this encounter"
--- OUTSIDE RECORDS SUMMARY | ~2019-09-28 | XMS | Encounter Summary ---
Demographics + + + | Address | [address] | | | [place] [address] | + + + | Home Phone [...] Providers + +------+ + | Care Buffing Wheel Former Automatic Name | Role | Phone | + +------+ + | No, Physician | PCP | Unavailable | + +------+ + Encounter Details +--------+ + + + + | Date | Type | Department | Care Team | Description | +--------+ + + + + | 01/03/ | [facility] | [facility] | Shay Dietz | | | 2013 | Encounter | MED CTR XRAY [address] | [address] | | | | | [place] | [place] | | | | | [place] [address] | [address] | | | | | [phone] | | | +--------+ + + + [...] | 2018 | Visit | | DO [address]Sri [address] | | | | | | DRIVE [place] | | | | | | [address] | | | | | | | | +--------+---------+ + + + documented as of this encounter Visit Diagnoses Not on filedocumented in this encounter"
--- OUTSIDE RECORDS SUMMARY | ~2019-09-28 | XMS | Encounter Summary ---
Demographics + + + | Address | [address] | | | [place] [address] | + + + | Home Phone [...] Providers + +------+ + | Care Contact Lens Blocker And Cutter Name | Role | Phone | [...] + + | 08/31/ | Telephone | [facility] | Alfredo Casillas DO | Triage | | 2019 | | [facility] | [address] | | | | | MEDICINE RADHA | [place] [address] | | | | | [address] | [phone] | | | | | [place], [place] | | | | | | [address] | | | | | | [phone] | | | +--------+ + + + [...] [place] | | | | | | [address] | | | | | | | | +--------+---------+ + + + documented as of this encounter Visit Diagnoses Not on filedocumented in this encounter"
--- OUTSIDE RECORDS SUMMARY | ~2019-09-28 | XMS | Encounter Summary ---
Demographics + + + | Address | [address] | | | [place] [address] | + + + | Home Phone [...] Providers + +------+ + | Care Surgery Scheduling Coordinator Name | Role | Phone | [...] | | 2016 | Encounter | at [facility] [address] | [address] [facility] | | | | | [place]any Mailcode: | [facility] [address] [place], | | | | | [address] | [place] [address] | | | | | Health [facility], | [phone] | | | | | [facility] | | | | | | floor [place], [place] | | | | | | [address] | | | | | | [phone] | | | +--------+ + + + [...]
--- OUTSIDE RECORDS SUMMARY | ~2019-09-28 | XMS | Encounter Summary ---
Demographics + + + | Address | [address] | | | [place] [address] | + + + | Home Phone [...] Providers + +------+ + | Care Fire Coordinator Name | Role | Phone | [...] + + | 07/26/ | Telephone | [facility] | Darrin Hoyos | Records Request (MRI | | 2013 | | NEUROSURGERY [address] | [address] | OF LUMBAR SPINE) | | | | [address] | [address] | | | | | [place], [place] | [place] [address] | | | | | [address] | [phone] | | | | | [phone] | | | +--------+ + + + [...] [place] | | | | | | [address] | | | | | | | | +--------+---------+ + + + documented as of this encounter Visit Diagnoses Not on filedocumented in this encounter"
--- OUTSIDE RECORDS SUMMARY | ~2019-09-28 | XMS | Encounter Summary ---
Demographics + + + | Address | [address] | | | [place] [address] | + + + | Home Phone [...] Team Providers + +------+ + | Care Services Clerk Name | Role | Phone | + +------+ + | Wendi Aiken | PCP | | + +------+ + Encounter Details +--------+ + + + + | Date | Type | Department | Care Team | Description | +--------+ + + + + | 12/28/ | Hospital | [facility] | Conversion | Diagnosis unknown | | 2018 | Encounter | CONVERSION [address] | Transaction, | | | | | [address] | Provider Unknown | | | | | [place], [place] | [phone] | | | | | [address] | | | | | | [phone] | | | +--------+ + + + [...] [place] | | | | | | [address] | | | | | | | [...]
--- OUTSIDE RECORDS SUMMARY | ~2019-09-28 | XMS | Encounter Summary ---
Demographics + + + | Address | [address] | | | [place] [address] | + + + | Home Phone [...] Providers + +------+ + | Care Student Life Vice President Name | Role | Phone [...] | | | | | bilateral | [place], [place] | | | | | | low back | [address] | | | | | | pain with | Phone: | | | | | | right-sided | [phone] | | | | | | sciatica | Fax: | | | | | | | [phone] | | + + + + + [...] + + | 08/03/ | Hospital | [facility] | Maykel Hutchins MD | BACK PAIN, LUMBAR | | 2019 - | Encounter | [facility] | [address] | (Primary Dx); | | | | CARE FLOOR [phone] | [place], | Chronic bilateral | | 08/04/ | | [address] | [place] [address] | low back pain with | | 2019 | | [place] | [phone] | right-sided sciatica | | | | [address] | | | | | | [phone] | | | +--------+ + + + [...] by elevating your feet Date Last Reviewed: 8670-7437 [employer]. [address] [place] [address], [place] [address]. All righ ts reserved. This information is not intended as a substitute for professional medical care. Always follow your healthcare professional's instructions. Acetaminophen; Hydrocodone tablets or capsules Brand Names: Anexsia, Lorcet, Lorcet HD, Lorcet Plus, Lortab, [place], Verdrocet, Vicodin, Vi codin ES, Vicodin HP, [...] information carefully each time. Talk to your sausage cutter regarding the use of this medicine in children. Special care may be needed. What side effects may I notice from receiving this medicine? Side effects that you should report to your doctor or health child day care provider as soon as p ossible: [...] (report to your doctor or health child day care provider if they continue or are [...] official disposal site. Contact the [facility] at [phone] or your [facility] to find a site. If you [...] medicine? Tell your doctor or health child day care provider if your pain does not [...] pharmacist, or health care provider. Copyright 2019 [employer] documented in this encounter Medications at Time [...] MSW - 08/04/2019 2:12 PM PDTCase production reproduction manager sent out Home Health order to [...] her up today to go home to [facility]. Past Medical History: Diagnosis Date Acid reflux disease Acute renal failure ([facility]) April 2013 Adverse effect of anesthesia hx hallucinations after anesthesia x 3 yrs ago. Anesthesia hallucinated after bladder repair Arthralgia Arthritis Asthma Asthma Back pain Cancer ([facility]) 2004 breast Cataract Cerebrovascular accident (CVA) ([facility]) no per pt Chronic back pain Chronic back pain Chronic constipation Concussion 07/2015 Preceeded by seizure Constipation COPD (chronic obstructive pulmonary disease) ([facility]) Degenerative disc disease Depression Depression Diabetes mellitus ([facility]) Diabetes mellitus, type 2 ([facility]) diet controlled Diabetes type 2, controlled ([facility]) diet controlled Diarrhea Disorder of thyroid [...] Scoliosis Scoliosis of lumbar spine 04/17/2014 Seizure ([facility]) one due to meds, two due [...] 100 mg Oral BID PRN Julien Ang, CUFF SETTER OVERLOCK HYDROcodone-acetaminophen (NORCO) 10-325 mg per tablet 1 tablet 1 tablet Oral Q4H PRN Julien Ang, CUFF SETTER OVERLOCK 1 tablet at 08/04/19 0502 HYDROmorphone (DILAUDID) injection 0.2-0.4 mg 0.2-0.4 mg Intravenous Q1H PRN Maykel ortiz MD 0.2 mg at 08/03/19 1700 methocarbamol (ROBAXIN) tablet 1,500 mg 1,500 mg Oral Q6H PRN Julien Guzman, CUFF SETTER OVERLOCK ondansetron (ZOFRAN ODT) disintegrating tablet 4 mg 4 mg Oral Q6H PRN Julien Guzman, CUFF SETTER OVERLOCK rOPINIRole (REQUIP) tablet 4 mg 4 mg Oral 4x Daily PRN Maykel Hutchins MD senna (SENOKOT) tablet 8.6 mg 8.6 mg Oral BID PRN Julien Guzman, CUFF SETTER OVERLOCK sodium chloride 0.45% (1/2 NS) infusion Intravenous Continuous Maykel Hutchins MD 100 mL /hr at 08/03/19 1342 950 mL at 08/03/19 1342 sodium chloride 0.45% (1/2 NS) infusion Intravenous Continuous Julien Guzman, CUFF SETTER OVERLOCK 100 m L/hr at 08/04/19 0057 Allergies [...] [place] | | | | | | [address] | | | | | | | [...] | | | Needs | | | FOUNDRY SUPERVISOR | | | reques | | | [...] | | | POC | performed at [facility];8 | | LABORATORY | | | | [address];[place], [place] | | | | | | [address] | | | | + + + + + + + + | Specimen | + + | | + + + + + + + | Performing | Address | City/State/Zipcode | Phone Number | | Organization | | | | + + + + + | [facility] | [address] | [place] [address] | [phone] | + + + + + POC Glucose (08/03/2019 4:15 PM PDT) + + + + + + | Component | Value | Ref Range | Performed | Pathologist | | | | | At | Signature | + + + + + + | Glucose, | 99Comment: Testing | 65 - 99 mg/dL | [facility] | | | POC | performed at [facility];888 | | LABORATORY | | | | [address];[place] | | | | | | [address] | | | | + + + + + + + + | Specimen | + + | | + + + + + + + | Performing | Address | City/State/Zipcode | Phone Number | | Organization | | | | + + + + + | [facility] | [address] | [place] [address] | [phone] | + + + + + POC [...] | | | POC | performed at [facility];[address] | | LABORATORY | | | | [address];[place] | | | | | | [address] | | | | + + + + + + + + | Specimen | + + | | + + + + + + + | Performing | Address | City/State/Zipcode | Phone Number | | Organization | | | | + + + + + | [facility] | [address] | [place] [address] | [phone] | + + + + + POC Glucose (08/03/2019 11:05 AM PDT) + + + + + + | Component | Value | Ref Range | Performed | Pathologist | | | | | At | Signature | + + + + + + | Glucose, | 108 (H)Comment: Testing | 65 - 99 mg/dL | [facility] | | | POC | performed at [facility];[address] | | LABORATORY | | | | [address];[place] | | | | | | [address] | | | | + + + + + + + + | Specimen | + + | | + + + + + + + | Performing | Address | City/State/Zipcode | Phone Number | | Organization | | | | + + + + + | [facility] | [address] | [place] [address] | [phone] | + + + + + LINSEY [...] | | | POC | performed at [facility];[address] | | LABORATORY | | | | [address];[place] | | | | | | [address] | | | | + + + + + + + + | Specimen | + + | | + + + + + + + | Performing | Address | City/State/Zipcode | Phone Number | | Organization | | | | + + + + + | [facility] | [address] | [place] [address] | [phone] | + + + + + POC Glucose (08/03/2019 9:14 AM PDT) + + + + + + | Component | Value | Ref Range | Performed | Pathologist | | | | | At | Signature | + + + + + + | Glucose, | 80Comment: Testing | 65 - 99 mg/dL | [facility] | | | POC | performed at [facility];[address] | | LABORATORY | | | | [address];[place] | | | | | | [address] | | | | + + + + + + + + | Specimen | + + | | + + + + + + + | Performing | Address | City/State/Zipcode | Phone Number | | Organization | | | | + + + + + | [facility] | [address] | [place] [address] | [phone] | + + + + + Type [...] + + + | BB BAND | [id number] | | [facility] | | | | | | LABORATORY | | + + + + + + | BB BAND | Testing performed at | | [facility] | | | | [facility];[address] | | LABORATORY | | | | [address];[place] [address] | | | | + + + + + + + + | Specimen | + + | Blood | + + + + + + + | Performing | Address | City/State/Zipcode | Phone Number | | Organization | | | | + + + + + | [facility] | [address] | [place] [address] | [phone] | + + + + + POC Glucose (08/03/2019 7:23 AM PDT) + + + + + + | Component | Value | Ref Range | Performed | Pathologist | | | | | At | Signature | + + + + + + | Glucose, | 77Comment: Testing | 65 - 99 mg/dL | [facility] | | | POC | performed at [facility];[address] | | LABORATORY | | | | [address];[place], [place] | | | | | | [address] | | | | + + + + + + + + | Specimen | + + | | + + + + + + + | Performing | Address | City/State/Zipcode | Phone Number | | Organization | | | | + + + + + | [facility] | [address] | [place] [address] | [phone] | + + + + + documented [...] | | | | | | longer, tmsrmy-yzf-mkdwd use of | | | | | [...] | | | | | | | nontmg-uqc-qnuhz use of at least | | | [...]
--- OUTSIDE RECORDS SUMMARY | ~2019-09-28 | XMS | Encounter Summary ---
Demographics + + + | Address | [address] | | | [place] [address] | + + + | Home Phone [...] Team Providers + +------+ + | Care Bmw Service Technician Name | Role | Phone [...] 2016 | Encounter | at [facility] [address] | [address] | medical records from | | | | Abbe Soto Mailcode: | [address] [place], | [facility] in | | | | [facility] | [place] [address] | [facility] | | | | [facility], | [phone] | in [facility] | | | | [facility] | | Ant | | | | floor [place], [place] | | | | | | [address] | | | | | | [phone] | | | +--------+ + + + [...]
--- OUTSIDE RECORDS SUMMARY | ~2019-09-28 | XMS | Encounter Summary ---
Demographics + + + | Address | [address] | | | [place] [address] | + + + | Home Phone [...] Providers + +------+ + | Care Line Server Name | Role | Phone | [...] + + | 04/03/ | Telephone | [facility] | Nick Martinez, | Medication Question | | 2017 | | PHYSIATRY [address] | PA-C [address] | | | | | [place], | [address] [place] | | | | | [place] [address] | [place] [address] | | | | | [phone] | [phone] | | | | | | | [...] [place] | | | | | | [id number] | | | | | | | | +--------+---------+ + + + documented as of this encounter Visit Diagnoses Not on filedocumented in this encounter"
--- OUTSIDE RECORDS SUMMARY | ~2019-09-28 | XMS | Encounter Summary ---
Demographics + + + | Address | [address] | | | [place] [address] | + + + | Home Phone [...] Providers + +------+ + | Care Edger Hand Name | Role | Phone | + +------+ + | Miquel Calhoun MD | PCP | | + +------+ + Encounter Details +--------+ + + + + | Date | Type | Department | Care Team | Description | +--------+ + + + + | 09/18/ | Hospital | [facility] | Shay Dietz | | | 2012 | Encounter | MED CTR XRAY [address] | | | | | [place] | [address] [place], [place] | | | | | [place] [address] | [address] | | | | | [phone] | | | +--------+ + + + [...] [place] | | | | | | [address] | | | | | | | | +--------+---------+ + + + documented as of this encounter Visit Diagnoses Not on filedocumented in this encounter"
[~2019-09-28 11:50] MED LIST changes: +MACROBID 100 M100 MG PO; +TESSALON PERLE100 MG PO
--- OUTSIDE RECORDS SUMMARY | 2019-09-28 11:52 | XMS ---
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 Care History Medical/Surgical 09/25/2019 [facility] Patient aware of PCP appt. on 10/17/2019 and of the walk in clinic, but stated she used ED because she has respiratory issues with fever and was too weak to walk. 08/08/2019 [facility] - PATIENT HAS AN APT WITH PCP DR DE LA PAZ ON 10/17/19 02/06/2019 [facility] - Patient is currently established with [facility]. If patient is seen in the ED during business hours. Please contact CHWs at [facility]. Care Recommendation: This patient has had 5 [...] care. E.D. VISIT COUNT (12 MO.) 1 [facility]. 7 [facility]. TOTAL 8 NOTE: Visits indicate total known visits. ED/UCC VISIT TRACKING (12 MO.) 09/28/2019 11:50 [facility] [place] TYPE: Emergency COMPLAINT: - CHEST PAIN 09/24/2019 15:43 [facility] [place] TYPE: Emergency COMPLAINT: - NAUSEA, VOMITING, DIARRHEA DIAGNOSES: - Other salvage determiner (current) 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 - Bipolar disorder, unspecified - Nausea with vomiting, unspecified - Chronic obstructive pulmonary disease, unspecified - Urinary tract infection, site not specified - jail (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 of systemic steroids - long term care administrator (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 of opiate analgesic - Diarrhea, unspecified - 1 Type 2 diabetes mellitus without complications - Allergy status to oth drug/meds/biol subst status 08/09/2019 11:06 [facility] [place] TYPE: Emergency COMPLAINT: - POST OP PROBLEM DIAGNOSES: - long term care administrator (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 of opiate analgesic - Chronic obstructive pulmonary disease, unspecified - Allergy status to oth drug/meds/biol subst status - 1 Type 2 diabetes mellitus without complications - Low back pain - Major depressive disorder, single episode, unspecified - Other chronic pain - long term care administrator (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 of systemic steroids - Other acute postprocedural pain - Other salvage determiner (current) 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 08/07/2019 22:09 [facility] [place] TYPE: Emergency COMPLAINT: - BACK PAIN DIAGNOSES: - Other skilled nursing (current) 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 - Encounter for change [...] drug/meds/biol subst status - Fasciculation - Other skilled nursing (current) 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 - 1 Type 2 diabetes mellitus without complications - Bipolar disorder, unspecified - long term care administrator (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 of opiate analgesic - Major depressive disorder, single episode, unspecified 02/05/2019 05:23 [facility] [place] TYPE: Emergency COMPLAINT: - ABD PAIN DIAGNOSES: - Allergy status to oth drug/meds/biol subst status - Bipolar disorder, unspecified - Chronic obstructive pulmonary disease, unspecified - 1 Type 2 diabetes mellitus without complications - Dysuria - Other salvage determiner (current) 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 - Urinary tract infection, site not specified 10/14/2018 12:13 [facility] [place] TYPE: Emergency COMPLAINT: - FALL/RIB PAIN DIAGNOSES: - Chronic obstructive pulmonary disease, unspecified - 1 Type 2 diabetes mellitus without complications - Striking against or struck by other objects, init encntr - Other chronic pain - Bipolar disorder, unspecified - Other salvage determiner (current) 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 - Contusion of left front wall of thorax, initial encounter - Allergy status to oth drug/meds/biol subst status - Low back pain INPATIENT VISIT TRACKING (12 MO.) No inpatient visits to display in this time frame [email or web address]
[2019-09-28] MEDS ORDERED: ROPINIROLE HCL2 MG PO ×2 (14:38→17:41)
--- NOTE | 2019-09-28 15:15 | NUR ---
Patient arrives to unit via stretcher. Transferred to hospital bed. Vital signs taken, assessment complete. D5LR running at 75 mls/hr with magnesium sulfate at 50 mls/hr. Medications given. Warm blanket and water provided. Patient reports pain of 5/10, prn pain medication provided. Fentanyl patch placed on upper right chest. Call light within reach.
--- NOTE | 2019-09-28 16:00 | NUR ---
Case management in room to discuss plan of care
[2019-09-28] MEDS ORDERED: NITROFURANTOIN100 M1 PO (16:01)
[2019-09-28] MEDS ORDERED: FENTANYL1 EAC4 TD (16:03)
[2019-09-28] MEDS ORDERED: METHOCARBAMOL500 MG PO (16:04)
--- NOTE | 2019-09-28 16:18 | NUR ---
Pt lives alone, son lives across the street. She states he does not check on her. Grandson who is 14 stays with her frequently. States she walks 5-6 miles per day until 5 days ago when she became sick and started falling. Uses a cane and has a wc. Wants to discharge home when she is feeling better.
--- NOTE | 2019-09-28 17:35 | NUR ---
Patient sitting up in bed. PM medications given. Patient pivoted to bedside commode with cane and 1 PA. D5LR running at 75 mls/hr. Patient returned to bed with cane and 1 PA. Denies further needs at this time, call light within reach.
[2019-09-28] MEDS ORDERED: VITAMIN D22000 UNIT PO (17:42)
[2019-09-28] MEDS ORDERED: MULTI VITAMIN1 EACH PO (17:42)
[2019-09-28] MEDS ORDERED: CALCIUM500 MG PO (17:43)
--- NOTE | 2019-09-28 17:43 | NUR ---
MED REC COMPLETE
--- NOTE | 2019-09-28 17:51 | NUR ---
PATIENT USING BASE COMMODE. PATIENT BACKS TO BED. ONE PERSON ASSISTING. VITAL SIGNS AND I&O DONE. CALL LIGHT WITHIN REACH. NO OTHER NEEDS AT THIS TIME
--- NOTE | 2019-09-28 18:45 | NUR ---
Patient reports nausea, emesis bag provided. Prn zofran given. Bowel tones active. Patient denies passing gas today. Will continue to monitor.
--- NOTE | 2019-09-28 19:26 | NUR ---
FEILD START IN LEFT AC DC D\T LEAKING. TIP INTACT. PT TOELRATED WELL.
--- NOTE | 2019-09-28 19:28 | NUR ---
RECEIVED REPORT FROM LUISA LOUIE. pt RESTING IN BED. REPORTED 6/10 PAIN. NO REQUESTS AT THIS TIME. CALL LIGHT WITHIN REACH. WHITEBOARD UPDATED.
--- NOTE | 2019-09-28 21:36 | NUR ---
pt HAD LOW BP. PALMER SALGADO. NEW ORDERS ENTERED.
--- NOTE | 2019-09-28 23:23 | NUR ---
ROUNDED ON pt. BOLUS COMPLETE, MAINTANENCE IVF INFUSING. pt RESTING WITH EYES CLOSED, RESPIRATIONS REGULAR AND UNLABORED. CALL LIGHT WITHIN REACH.
--- NOTE | 2019-09-29 00:02 | NUR ---
ROUNDED ON pt. RESTING WITH EYES CLOSED, RESPIRATIONS REGULAR AND UNLABORED. CALL LIGHT WITHIN REACH.
--- NOTE | 2019-09-29 02:34 | NUR ---
pt UP TO BSC. 1PA WITH CANE. ASSESSMENT DONE. pt REPORTED PAIN, VERBALIZED UNDERSTANDING THAT NEXT PAIN MED IS DUE AT 0400. NO REQUESTS AT THIS TIME. CALL LIGHT WITHIN REACH.
--- NOTE | 2019-09-29 03:40 | NUR ---
NOTIFIED BY CCU THAT PT CONVERTED BACK INTO A-FIB AT 0317. VENTRICULAR RATE IS BETWEEN 115-130 AVERAGING ABOUT 120HR. ASSESSED PT AND HER BP WAS 92/56 (63) WITH HR 130. PT DENIES SOB AND CHEST PAIN BUT STATES SHE IS HAVING BACK PAIN AND IS COLD AND RESTLESS. UPDATED CCU LUISA CODY AND WILL CALL DR DE LA ROSA.
--- NOTE | 2019-09-29 03:49 | NUR ---
SPOKE WITH RJ TO UPDATE HIM ON PT'S STATUS (SEE PREVIOUS NOTE). TORBC FOR 250CC BOLUS AND IV METOPROLOL, SEE EMAR.
--- NOTE | 2019-09-29 04:05 | NUR ---
SPOKE WITH DR DE LA ROSA AND GAVE UPDATE ON PT'S HR UP TO 160'S. HE WOULD LIKE TO BE CALLED WITH HER BP ONCE BOLUS IS COMPLETE BEFORE ADMINISTERING THE IV METOPROLOL. ALSO VERIFIED THAT IT IS OKAY TO GIVE THE PT HER NORCO AT THIS TIME.
--- NOTE | 2019-09-29 05:24 | NUR ---
BOLUS STARTED, EDUCATED pt ON SITUATION, REASSURED HER, THERAPEUTIC COMMUNICATION. pt REPORTED A "FLUTTERY" FEELING IN HER CHEST. MD IN ROOM TO ASSESS pt. 0425 - BLOOD PRESSURE TAKEN, VERBAL ORDER TO GIVE 5MG IV METOPROLOL. GIVEN 0432 - BP TAKEN, VERBAL ORDER TO GIVE ADDITIONAL 5 MG IV METOPROLOL. GIVEN 0440 - BP TAKEN, MD VERIFIED WITH MANUAL BP. CONTINUED TO REASSURE pt. pt WILL CALL IF SHE IS FEELING ANYTHING DIFFERENT, ENCOURAGED TO REST. ASSISTED pt TO CALL GRANDDAUGHTER. pt REPORTED "I FEEL BETTER" AFTER CALL. ENCOURAGED pt TO CALL IF SHE IS FEELING EMOTIONAL. pt NO LONGER CRYING. CALL LIGHT WITHIN REACH
--- NOTE | 2019-09-29 06:17 | NUR ---
CALL LIGHT ON. pt REPORTED SPILLING COFFEE, FLOOR CLEANED. pt HAD QUESTIONS ABOUT A FIB. EDUCATION PROVIDED VERBALLY AND WITH HANDOUT. THERAPEUTIC COMMUNICTION. 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 NO FURTHER REQUESTS AT THIS TIME. CALL LIGHT WITHIN REACH. LIGHTS OFF FOR COMFORT.
--- NOTE | 2019-09-29 07:19 | NUR ---
BEDSIDE REPORT RECEIVED PT RESTING EYES CLOSED
--- NOTE | 2019-09-29 10:13 | NUR ---
PT ENCOURAGED TO GET UP OUT OF BED, REFUSES AT THIS TIME. PT REQUESTS PAIN MEDICATION THEN ASKS "WHAT TOOK YOU SO LONG, I ASKED 15 MINUTES AGO?" PT REASSURED MEDICATION DELIVERED ON TIME, ACUTALLY 5 MINUTES EARLY FOR Q6 MED. PT RESTING ON SIDE EYES CLOSED
--- NOTE | 2019-09-29 11:29 | NUR ---
PT RESTING IN BED EYES CLOSED AWAKENS TO VOICE MEDS GIVEN ORDERED. PT C/O SHE JUST WANTS TO SLEEP. NO C/O PAIN OR OTHER. ROOM IS QUITE WARM PER PREFERENCE, EXTRA BLANKETS ON BED PT BP LOW REPORTED TO DR DE LA ROSA
--- NOTE | 2019-09-29 11:50 | NUR ---
metoprolol dc'd. pt continues resting in bed, refuses up to chair denies snack, or other comfort items
--- NOTE | 2019-09-29 13:15 | NUR ---
DR DE LA ROSA IN TO SEE PT. PLAN OF CARE DISCUSSED AT LENGTH
--- NOTE | 2019-09-29 15:16 | NUR ---
PT REPORTS LIDOCAINE PATCH HAS HELPED HER BACK A LOT. VISITORS X2 JUST LEAVING PT RESTING IN BED DRAWING CARTOONS. APOLOGIZES FOR BEING "SNAPPY" EARLIER. APPEARS CONTENT DENIES FURTHER NEEDS OF. TIME OF PRN AVAILABILTY ON BOARD
--- NOTE | 2019-09-29 19:06 | NUR ---
RECEIVED REPORT FROM LUISA PORTER. pt RESTING WITH EYES CLOSED, RESPIRATIONS REGULAR AND UNLABORED. CALL LIGHT WITHIN REACH.
--- NOTE | 2019-09-29 19:52 | NUR ---
ROUNDED ON pt. SITTING ON COMMODE, REQUESTED MORE TIME. pt STATED "I'VE BEEN HAVING WEIRD DREAMS" DISCUSSED PLAN OF CARE. CALL LIGHT WITHIN REACH.
--- NOTE | 2019-09-29 20:00 | NUR ---
CALL LIGHT ON. ASSISTED pt BACK TO BED. pt ASKED ABOUT MEDICATION, EXPLAINED WHAT WAS ORDERED. pt BECAME AGITATED AND EMOTIONAL. pt STATED "THAT'S NOT RIGHT THE DOCTOR AND I TALKED ABOUT IT" REQUESTED THAT DOSES OF MEDICATIONS BE CHANGED. pt DENIED SOB AT THIS TIME. TOOK TEMPERATURE PER REQUEST, pt VERY UPSET WHEN BLOOD PRESSURE WAS TAKEN, EDUCATED ON THE NECESSITY FOR TRACKING VITALS. pt RESPONDED "JUST GO TALK TO THE DOCTOR AND GET MY MEDS" CALL LIGHT WITHIN REACH.
--- NOTE | 2019-09-29 21:20 | NUR ---
pt REPORTED "MY THROAT IS TIGHT" RT INTO EVALUATE. SAT 100% ON ROOM AIR. CLEAR LUNGS. pt EMOTIONAL. REQUESTING INHALERS TO BE AT BEDSIDE. THIS RN IN TO EVALUATE. pt REPEATED REQUESTS FOR MEDICATION CHANGES. REPORTED SOME BLOODY MUCUS WHEN BLOWING HER NOSE. STATED "THIS COUGH IS REALLY PAINFUL, WHEN WILL I GET BETTER" NO CHANGES IN ASSESSMENT. MD NOTIFIED OF SITUATION. MD ENTERED NEW ORDERS. OKAY FOR pt TO HAVE INHALERS AT BEDSIDE. SPOKE WITH pt ABOUT CHANGES TO MEDS, pt AGREEABLE TO MEDICATION CHANGES. STATED "MY INHALER IS AT HOME AND I DON'T HAVE ANYONE TO GET IT" "I DON'T HAVE ANYONE IN MY LIFE" DISCUSSED HOME ENVIRONMENT, REMINDED pt OF VISITORS DURING THE DAY AND DISCUSSION WITH GRANDDAUGHTER LAST NIGHT. pt STATED "I GUESS I DO HAVE A GOOD GRANDSON" pt LESS AGITATED. MEDICATIONS GIVEN (SEE MAR). pt UP TO COMMODE AND BACK TO BED. MOVED BED SO pt WAS FACING WINDOW. pt STATED "THANK YOU" NO FURTHER REQUESTS AT THIS TIME. CALL LIGHT WITHIN REACH.
--- NOTE | 2019-09-29 22:30 | NUR ---
pt RESTING WITH EYES CLOSED, RESPIRATIONS REGULAR. pt WOKE, DROWSY BUT ABLE TO SWALLOW SAFELY. RATED PAIN 5/10. CALL LIGHT WITHIN REACH.
--- NOTE | 2019-09-29 22:53 | EKG ---
[facility] [address] [facility] [place] [address] Signed Normal sinus rhythm Normal ECG When compared with ECG of 28-SEP-2019 11:50, (Unconfirmed) Sinus rhythm has replaced Atrial fibrillation Vent. rate has decreased BY 43 BPM Confirmed by TRAE DE LA ROSA MD ([id number]) on 09/29/2019 10:53:03 PM Electronically Signed By: TRAE DE LA ROSA MD 09/29/19 2253 PATIENT NAME: RONALD FLORIAN Electrocardiogram DATE OF : 49 PHYSICIAN: TRAE DE LA ROSA MD REPORT #: [id number] REPORT IS CONFIDENTIAL AND NOT TO BE RELEASED WITHOUT AUTHORIZATION
--- NOTE | 2019-09-29 22:53 | EKG ---
[facility] [address] [facility] [place] [address] Signed Atrial fibrillation with rapid ventricular response Abnormal ECG Confirmed by TRAE DE LA ROSA MD ([id number]) on 09/29/2019 10:53:00 PM Electronically Signed By: TRAE DE LA ROSA MD 09/29/19 2253 PATIENT NAME: RONALD FLORIAN JESSI Electrocardiogram DATE OF : 49 PHYSICIAN: TRAE DE LA ROSA MD REPORT #: [id number] REPORT IS CONFIDENTIAL AND NOT TO BE RELEASED WITHOUT AUTHORIZATION
--- NOTE | 2019-09-29 23:39 | NUR ---
ROUNDED ON pt. RESTING WITH EYES CLOSED, RESPIRATIONS REGULAR AND UNLABORED. CALL LIGHT WITHIN REACH.
--- NOTE | 2019-09-30 00:34 | NUR ---
HELPED PT TO THE BSC AND BACK TO BED WITH HER CANE. BEDSIDE TABLE AND CALL LIGHT IN REACH. PT NEEDS NOTHING MORE AT THIS TIME.
--- NOTE | 2019-09-30 01:05 | NUR ---
VITALS DONE. pt REPORTED 5/10 PAIN. DROWSY. NO REQUESTS AT THIS TIME. CALL LIGHT WITHIN REACH.
--- NOTE | 2019-09-30 02:37 | NUR ---
HELPED PT TO THE BSC. SHE WILL CALL WHEN SHE IS DONE. CALL LIGHT IN HER REACH.
--- NOTE | 2019-09-30 02:38 | NUR ---
WENT TO HELP PT BACK TO BED PER HER REQUEST. SHE INFORMED ME SHE ISNT DONE YET. SHE SAID SHE WILL CALL WHEN SHE IS DONE.
--- NOTE | 2019-09-30 02:39 | NUR ---
HELPED PT BACK TO BED FROM HER BSC. CALL LIGHT IN REACH. BEDSIDE TABLE NEXT TO HER.
--- NOTE | 2019-09-30 03:36 | NUR ---
ROUNDED ON pt. RESTING WITH EYES CLOSED, RESPIRATIONS REGULAR AND UNLABORED. CALL LIGHT WITHIN REACH.
--- NOTE | 2019-09-30 04:49 | NUR ---
pt UP TO BSC. NEW FLUIDS HUNG, PRN PAIN MEDS GIVEN (SEE MAR). pt BACK TO BED. ASSESSMENT DONE. CALL LIGHT ON. pt REQUESTED WARM BLANKET, PROVIDED. CALL LIGHT WITHIN REACH. NO FURTHER REQUESTS AT THIS TIME.
--- NOTE | 2019-09-30 05:17 | NUR ---
pt ANXIOUS AT BEGINNING OF SHIFT. MEDICATION DOSES CHANGED. pt RESTED MOST OF SHIFT. PRN PAIN MEDS Q6H. VITALS Q4. pt WORKING ON SPUTUM SAMPLE. TELE 3, SR MOST OF SHIFT. IVF INFUSING. TOLERATING REGULAR DIET. 1PA WITH CANE TO BSC. USES CALL LIGHT APPROPRIATELY.
--- NOTE | 2019-09-30 05:30 | NUR ---
pt REPORTED "I CAN'T BREATH" ASSESSMENT DONE. LUNG SOUNDS CLEAR, SAT 100% ON ROOM AIR. THERAPEUTIC COMMUNICATION. CALLED RT. RT IN ROOM.
--- NOTE | 2019-09-30 06:22 | NUR ---
LAB IN ROOM. pt REPORTED 5/10 PAIN, MAINLY IN LOWER BACK, ENCOURAGED TO WORK WITH PT TODAY. MED GIVEN (SEE MAR). CALL LIGHT WITHIN REACH.
--- NOTE | 2019-09-30 07:18 | NUR ---
INFORMED OF NO URINE OUTPUT. NO ORDERS AT THIS TIME.
--- NOTE | 2019-09-30 07:31 | NUR ---
BEDSIDE REPORT RECEIVED PT ALERT AND TALKATIVE, RESTING IN BED. PT REFUSES UP TO CHAIR STATES IT WOULD HURT HER BACK TOO MUCH. ORAL CARE ITEMS PROVIDED, BREAKFAST ORDERED.
--- NOTE | 2019-09-30 09:22 | NUR ---
pt tolerates breakfast well then up to bsc back to bed, refusing chair. pt using phone at this time 0 requests or c/o
--- NOTE | 2019-09-30 09:50 | NUR ---
REQUESTED PT TO AMBULATE WALKER PROVIDED FOR ADDED STABILITY. PT STATES "I DON'T KNOW, I'M PROBABLY TOO WEAK FOR THIS" PT TAKES 2 STEPS AND SLOWLY BEGINS TO BEND HER KNEES. PUSHED PT BACK TO THE BED TO PREVENT CONTROLLED FALL. PT RESTING IN BED AT THIS TIME. DISCUSSED WITH PT THE NEED TO AMBULATE TO MAINTAIN STRENGTH
--- NOTE | 2019-09-30 10:20 | NUR ---
PATIENT IN BED. WATER REFRESHED. WARM WASHCLOTH OFFERED. CALL LIGHT IN REACH. NO FURTHER NEEDS AT THIS TIME.
--- NOTE | 2019-09-30 11:26 | NUR ---
PT CONTINUES RESTING IN BED DESPITE ENCOURAGEMENT TO MOVE TO CHAIR AND AMBULATE SOME. PT REQUESTS ASSIST TO MOVE HER LEGS INTO THE BED AFTER TOILETING, PREVIOUSLY SHE HAD DONE THIS INDEPENDANTLY EACH TIME WITHOUT DIFFICULTY. H20, CALL LIGHT AND NEEDED ITEMS IN REACH
--- NOTE | 2019-09-30 13:51 | NUR ---
PT WORKS WITH P/T SITTING UPRIGHT IN THE CHAIR AT THIS TIME NEEDED ITEMS IN HAND
--- NOTE | 2019-09-30 14:43 | NUR ---
PT HAS BEEN UP TO THE SHOWER AND SPENT TIME IN THE RECLINER, RESTING IN BED WITH PHONE AND OTHER PERSONAL ITEMS AT THIS TIME
--- NOTE | 2019-09-30 15:48 | NUR ---
pt up to bsc self transfers to bed. requests page of excersizes brought by p/t states she is going to work on them
--- NOTE | 2019-09-30 18:29 | NUR ---
PT RESTING SOUNDLY, AWAKENS TO TOUCH DIGOXIN ADMINISTERED PER ORDERS.
--- NOTE | 2019-09-30 18:48 | NUR ---
PT STATES SHE DOESNT' FEEL WELL ALL OF A SUDDEN. SHE IS UNABLE TO BE SPECIFIC STATING "I DON'T KNOW, JUST A SENSE OF FORBODING" SATS ARE 99% BREATHING EVEN AND UNLABORED HR 82 AND REGULAR TO ASC. BP 121/66 PT GOES ON TO SAY "IT'S PROBABLY NOTHING, I'M OKAY" DENIES NEED OR WANT OF ANYTHING SPECIFIC. PT APPEARS RELAXED, NORMAL COLOR AND DEMEANOR VITALS WNL.
--- NOTE | 2019-09-30 18:58 | NUR ---
RECEIVED REPORT FROM LUISA PORTER. pt RESTING IN BED WATCHING TV. WHITEBOARD UPDATED. CALL LIGHT WITHIN REACH.
--- NOTE | 2019-09-30 20:32 | NUR ---
VITALS AND I&OS DONE AND CHARTED. HELPED PT BACK TO BED FROM THE BATHROOM WITH HER CANE. GARBAGES EMPTIED AND ROOM CLEANED. BEDSIDE TABLE AND CALL LIGHT IN REACH.
--- NOTE | 2019-09-30 21:40 | NUR ---
ASSESSMENT DONE. MEDICATIONS GIVEN (SEE MAR). pt REPORTED 6/10 PAIN, EDUCATED ABOUT THE PAIN MANAGEMENT SCHEDULE. pt AGREEABLE TO PLAN. pt RESTING IN BED. NO REQUESTS AT THIS TIME. WATCHING TV. CALL LIGHT WITHIN REACH.
--- NOTE | 2019-09-30 22:44 | NUR ---
PRN PAIN MED GIVEN (SEE MAR). pt REPORTED 6/10 PAIN. pt UP TO BSC. CALL LIGHT WITHIN REACH.
--- NOTE | 2019-09-30 23:00 | NUR ---
pt ASSISTED BACK TO BED FROM BSC BY LUISA DELACRUZ. CALL LIGHT WITHIN REACH.
--- NOTE | 2019-09-30 23:24 | NUR ---
pt CALLED, STATED "I DON'T KNOW HOW I GOT BACK IN BED" REASSURED pt, BED ALARM ON. CALL LIGHT WITHIN REACH. NO REQUESTS AT THIS TIME.
--- NOTE | 2019-10-01 00:53 | NUR ---
ROUNDED ON pt. RESTING WITH EYES CLOSED, RESPIRATIONS REGULAR AND UNLABORED. CALL LIGHT WITHIN REACH. BED ALARM ON.
--- NOTE | 2019-10-01 01:50 | NUR ---
VITALS DONE. ASSESSMENT DONE. pt KEPT REPEATING "WHY ARE YOU DOING THIS TO ME?" REORIENTED MULTIPLE TIMES. pt UP TO BSC, MONITORED, BACK TO BED. WARM BLANKET PROVIDED. BED ALARM ON.
--- NOTE | 2019-10-01 03:37 | NUR ---
HELPED PT TO THE BSC AND BACK TO BED WITH HER CANE. BEDSIDE TABLE AND CALL LIGHT IN REACH.
--- NOTE | 2019-10-01 05:00 | NUR ---
pt CALLED FOR BSC. REPORTED 6/10 PAIN, PRN GIVEN (SEE MAR). UP TO BSC, AMBULATED BY SELF WITH CANE, BACK TO BED. NO FURTHER REQUESTS AT THIS TIME. CALL LIGHT WITHIN REACH.
--- NOTE | 2019-10-01 05:41 | NUR ---
pt RESTED ON AND OFF DURING SHIFT. NON ROUTINE VITALS, POST 2AM VITALS pt CONFUSED, REPEATED "WHY ARE YOU DOING THIS" CALLED FRIEND ASKED FOR NARCAN FROM FRIEND, REDIRECTED. pt REQUESTING TO LEAVE TUESDAY AT THE SOONEST. PRN PAIN MEDS Q6. BSC. USES CALL LIGHT FREQUENTLY.
--- NOTE | 2019-10-01 07:41 | NUR ---
POWER OF TIP STITCHER, JANETTE LEE, CALLED ([phone]). JANETTE REPORTED CONCERNS ABOUT pt COMING HOME. STATED "SHE DOES NOT HAVE HELP AT HOME, I ONLY DO ERRANDS FOR HER, SHE HAS MEALS ON WHEELS, I ALSO CONTROL HER OPIOIDS BECAUSE SHE CANNOT BE TRUSTED. I THINK SHE NEEDS TO GO TO A REHAB PLACE." JANETTE IS AVAILABLE TO MEET WITH HOSPITAL STAFF THIS AM BUT HAS A COMMITMENT AT 1215. CHARGE NURSE AND PRIMARY NURSE INFORMED OF CONVERSATION.
--- NOTE | 2019-10-01 07:52 | NUR ---
BEDSIDE REPORT.. CRUSHER FOREMAN IN ROOM AT THIS TIME.
--- NOTE | 2019-10-01 08:00 | NUR ---
PT UP TO BATHROOM ONE PERSON ASSIST WITH CANE AMBULATED FROM BED TO BATHROOM, THEN TO CHAIR. PT REQUESTED BEDSIDE COMMODE, PT ENCOURAGED TO AMBULATE.
--- NOTE | 2019-10-01 09:17 | NUR ---
PT WORKING WITH Adiel AT THIS TIME.
--- NOTE | 2019-10-01 10:03 | NUR ---
PATIENT IN SITTING IN CHAIR. PATIENT REFUSED SHOWER. CALL LIGHT IN REACH. NO FURTHER NEEDS AT THIS TIME.
--- NOTE | 2019-10-01 11:30 | NUR ---
PT RESTING IN BED TALKING ON PHONE.
--- NOTE | 2019-10-01 11:40 | NUR ---
PT REQUESTED PAIN MEDICATIONS FOR 8 BACK PAIN. NORCO 10/325 PO PRN GIVEN AT THIS TIME.
--- NOTE | 2019-10-01 12:30 | NUR ---
PT AMBULATED TO BATHROOM SBA WITH FWW. PT VERBALIZED MULTIPLE CONCERNS ABOUT DISCHARGE, PT REQUEST TO SPEAK TO DIRECTOR OF PROMOTIONS AGAIN, GERMAINE MORAN NOTIFIED.
--- NOTE | 2019-10-01 13:56 | NUR ---
PATIENT SITTING UP IN CHAIR. VITAL SIGNS AND I&O DONE. CALL LIGHT WITHIN REACH. NO OTHER NEEDS AT THIS TIME
--- NOTE | 2019-10-01 14:45 | NUR ---
PT SITTING IN CHAIR, MISTOOK ME FOR P.T. WANTS TO BE DC'D AND IS WAITING FOR P.T. SHE WAS UNABLE TO IN HER WORDS TO HAVE SESSION THIS AM, BUT IS BETTER NOW. I LET HER KNOW I WOULD INFORM HER RN HEATHER, WHICH I DID. EXTENDED A BLESSING. WILL FOLLOW NEEDED
--- NOTE | 2019-10-01 15:28 | NUR ---
PT RESTING IN BED AFTER AMBULATING IN HALLS WITH PHYSICAL THERAPY ALEX. SHE REPORTS SHE FEELS SO MUCH BETTER THIS AFTERNOON SINCE SHE HAD LARGE BM.
--- NOTE | 2019-10-01 16:27 | NUR ---
PT RESTING IN BED COUMADIN 5MG PO GIVEN PER DEC, INR 1.1 TODAY. PT REQUESTED ANOTHER WARM BLANKET THIS WAS PROVIDED. NO FURTHER REQUESTS AT THIS TIME.
--- NOTE | 2019-10-01 16:36 | NUR ---
THIS AM PT WAS NOT MOTIVATED TO AMBULATE WITH STAFF OR WORK WITH PHYSICAL THERAPY. SHE HAS BEEN UP TO RECLINER FOR MEALS AMBULATING TO BATHROOM. AFTER LARGE BM EARLY AFTERNOON, SHE REPROTS SHE FEELS MUCH BETTER AND WANTS TO WORK WITH PHYSICAL THERAPY, ALEX WALKED WITH HER IN HALLS. PT HAS REPORTS HAVING NO APPETITE, SHE HAS CONSUMED 40% OR BETTER FOR MEALS. QUANTITY SUFFICIENT URINE OUT. HAS INCREASED ANXIETY ABOUT DISCHARGE ARRANGEMENTS. EDUCATION PROVIDED FOR NEW MEDICATIONS NEED TO CONTINUE TO RE-ENFORCE EDUCATIONS ON MEDICATIONS, AND AFIB, RISK AND BENEFITS OF MEDICATIONS.
--- NOTE | 2019-10-01 16:40 | NUR ---
In to speak with Kori. Dr Ryan in the room discussing SNF with pt. Pt. wanting to go home as she wants to pay bill. Pt. informed by Dr. Ryan it is his recommendation to go to an SNF for strengthening. Names of SNFs given in the area and pt states she will let me know what SNF she would like to use. She then states she will go to [facility] as it is here in town and will be easy for her cg who helps her. Called and spoke with Dave Weinstein who assist pt's at home. She states Kori has 6 hours of help from senior/disabilty as pt is not self sufficent. She is unable to cook, clean, or shower herself without assistance. Nathalia states she will not assist pt, if she is not at base line when she returns home.
--- NOTE | 2019-10-01 18:02 | NUR ---
O.T. IN TO WORK WITH PATIENT AT THIS TIME.
--- NOTE | 2019-10-01 18:03 | NUR ---
PT UP TO BATHROOM FOR THIRD LOOSE STOOL THIS AFTERNOON
--- NOTE | 2019-10-01 18:24 | NUR ---
PATIENT IN BED RESTING. CALL LIGHT IN REACH. NO FURTHER NEEDS AT THIS TIME.
--- NOTE | 2019-10-01 19:45 | NUR ---
REPORT RECEIVED FROM DAY SHIFT RN. PT LYING IN BED, ALERT AND ORIENTED WATCHING TV. DENIES NEEDS AT THIS TIME. CALL LIGHT IN REACH.
--- NOTE | 2019-10-01 19:58 | NUR ---
CHARGE NURSE REPORT RECEIVED, NEAR 1620, PT IN BED, EYES CLOSED. NO NEEDS.
--- NOTE | 2019-10-01 20:40 | NUR ---
BLOOD SUGAR CHECKED PER PT REQUESTS. RESULTS 123. PT C/O BEING SWEATY AND STATES SHE OCCASIONALLY CHECKS HER BS AT HOME. THERMOSTAT TURNED DOWN IN ROOM. PT DENIES OTHER SYMPTOMS OF HYPER/HYPOGLYCEMIA.
--- NOTE | 2019-10-01 20:50 | NUR ---
ASSESSMENT COMPLETE. PM MEDS GIVEN WITHOUT ISSUE. WARM PACK GIVEN FOR RIGHT SHOULDER PAIN. PT UP TO BR WITH 1PA AND FWW TO VOID 100ML CLEAR YELLOW URINE. BACK TO BED WITH MINIMAL ASSIST. SRAVANI WELL. PT DENIES OTHER NEEDS AT THIS TIME. CALL LIGHT IN REACH.
--- NOTE | 2019-10-02 00:04 | NUR ---
MEDICATED WITH PRN NORCO PER PT REQUEST. PT RESTING IN BED AT THIS TIME. NO FURTHER REQUESTS. CALL LIGHT IN REACH.
--- NOTE | 2019-10-02 03:20 | NUR ---
PT RESTING IN BED WITH EYES CLOSED. RR EVEN AND UNLABORED. CALL LIGHT IN REACH.
--- NOTE | 2019-10-02 03:31 | NUR ---
CALL LIGHT ANSWERED. 1 PA TO BATHROOM AND BACK TO BED. NO OTHER NEEDS AT THIS TIME.
--- NOTE | 2019-10-02 05:24 | NUR ---
PT RESTED WELL. ALERT AND ORIENTED, USES CALL LIGHT APPROPRIATELY. RA. PRN NORCO FOR PAIN. 1PA WITH FWW. SL. ORAL ABX.
--- NOTE | 2019-10-02 07:07 | NUR ---
REPORT RECEIVED FROM LUISA TERRELL. PT RESTING ON LEFT SIDE. PT REPORTS SHE IS "FEELING BETTER." AND HER PAIN IS DECREASING WITH THE PAIN MEDICATION, NOW REPORTS 5/10 PAIN. PT LISTENING TO AUDIO BOOK. NO ADDITIONAL REQUESTS OR COMPLAINTS AT THIS TIME. CALL LIGHT WITHIN REACH. BED RAILS UP.
--- NOTE | 2019-10-02 07:57 | NUR ---
MORNING ASSESSMENT AND MEDICATIONS DUE. PT REPORTS 4/10 PAIN WHICH SHE STATES IS TOLERABLE. PT DECLINES LIDOCANE PATCH. PIV ASSESSED, DOESN'T FLUSH. DRESSING REMOVED AND LINE INSPECTED. LINE UNKINKED. SITE CARE DONE. NEW DRESSING APPLIED. LINE FLUSHES WELL. NO REDNESS OR SWELLING NOTED. LUNG SOUNDS CRACKELS IN BASES. I.S. USED, PT REACHES 1250ML. SBA UP TO CHAIR. PT DENIES ADDITIONAL REQUESTS OR COMPLAINTS AT THIS TIME. SHOWER PLANNED FOR AFTER BREASKFAST. MEDICATIONS GIVEN. CALL LIGHT WITHIN REACH, WARM BLANKETS AND FRESH WATER PROVIDED.
--- NOTE | 2019-10-02 09:46 | NUR ---
PT CALL LIGHT ON. PT REQUESTS ASSISTANCE UP TO RESTROOM. SBA, CANE UP TO RESTROOM. SMALL LOOSE BM NOTED. DEPENDS CHAGNED. ERICH CARE DONE. PT BACK TO BED TO REST. WARM BLANKETS PROVIDED. NO ADDITIONAL REQUESTS OR COMPLAINTS. AT THIS TIME. CALL LIGHT WITHIN REACH. BED RAILS UP.
[2019-10-02] MEDS ORDERED: CEFPODOXIME PR200 MG PO (10:26)
[2019-10-02] MEDS ORDERED: DIGOX125 MCG PO (10:27)
[2019-10-02] MEDS ORDERED: POLYETHYLENE GL17 GM PO (10:30)
[2019-10-02] MEDS ORDERED: DOK PLUS TABLE1 EACH PO (10:30)
--- NOTE | 2019-10-02 10:33 | NUR ---
PT VISITING WITH MD ABOUT DISCHARGE. PT ANTICIPATING DISCHARGE SOON. PT UP FOR SHOWER. INDEPENDANT WITH SHOWER. PT DRESSES SELF IN CLOTHES FROM HOME. PIV DC'D PER PROTOCOL. ERINN AND CORAZON APPLIED. PHARMACY CALLED FOR MEDICATION CONSULTATION AND EDUCATION. DISCHRAGE INSTRUCTIONS REVEIWED WITH PT. PT VERBALIZES UNDERSTANDING AND STATES ALL HER QUESTIONS HAVE BEEN ANSWERED. PT CALLED FRIEND FOR RIDE. HOME AWAITING FRIENDS ARRIVAL. NO ADDITIONAL REQUESTS COMPLAINTS OR CONCERNS AT THIS TIME.
[2019-10-02] MEDS ORDERED: WARFARIN SODIUM2 MG PO (10:46)
--- NOTE | 2019-10-02 11:03 | NUR ---
FARRUKH TO BEDSIDE TO VISIT WITH PT. PT CALLED FRIEND FOR RIDE HOME. PT VERBALIZES UNDERSTANDING OF MEDICATIONS AND INSTRUCTIONS AND STATES HER QUESTIONS HAVE BEEN ANSWERED.
--- NOTE | 2019-10-02 11:17 | NUR ---
PT DECLINING WARFARIN HOME MEDICATION. AWAITING MD FOR CONSULT WITH PHARMACIST
[2019-10-02] MEDS ORDERED: XARELTO20 MG PO (11:29)
--- NOTE | 2019-10-02 11:55 | NUR ---
AWAITING PTS FRIEND TO ARRIVE FOR DISCHRAGE. PT RESTING IN BED. NO REQEUSTS OR COMPLAINTS. CALL LIGHT WITHIN REACH. BED RAILS UP.
--- NOTE | 2019-10-02 12:16 | NUR ---
THIS RN TO BEDSIDE TO REVIEW NEW DISCHRAGE INSTRUCTIONS WITH PT. DISCHARGE INSTRUCTIONS REVEIWED, PT VERBALIZES UNDERSTANDING AND STATES HER QUESTIONS HAVE BEEN ANSWERED. PT VERBALIZES UNDERSTANDING OF FOLLOW UP APPOINTMENTS, HOME MEDICATIONS, AND LABS. NOON MEDICATION GIVEN (SEE MAR). PT RESTING IN BED. NO ADDITIONAL REQUESTS OR COMPLAINTS AT THIS TIME. CALL LIGHT WITHIN REACH.
--- NOTE | 2019-10-02 12:34 | NUR ---
PT CALL LIGHT ON. PT ANXIOUS ABOUT "WHO IS PICKING ME UP." CARE PLAN RE EXPLAINED TO PT. PT REQUESTS THAT HER VITALS SIGNS BE TAKEN. VITAL SIGNS TAKEN AND WNL. PT STATES "I'M JUST ANXIOUS." WARM BLANKET PROVIDED. PT RESTING IN BED. NO ADDITIONAL REQUESTS OR COMPLAINTS. CALL LIGHT WITHIN REACH.
--- NOTE | 2019-10-02 13:37 | NUR ---
PTS FRIEND, TERRANCE GALE. PT STATES SHE HAS NO ADDITIONAL QUESTIONS AT THIS TIME. PT WHEELED FROM MED SURG UNIT. BELONGINGS RETRIEVED FROM [facility].
--- NOTE | 2019-10-02 16:56 | NUR ---
SPOKE WITH ARIEL FROM [facility]. ORDER, CLINICALS SCANNED TO HER EMAIL AT [email or web address] PER REQUEST. SHE STATES THEY SAW PATIENT IN THE PAST. THEY WILL CONTACT HER AND PROBABLY ADMIT TUESDAY.
== END 2019-10-02 13:28 | disposition home health service (06) | DRG 194 ==
LOC: ED 11:50 → MS 14:01
PROVIDERS: ADMIT Internal Medicine
DX: J13 Pneumonia due to Streptococcus pneumoniae (principal); E87.1 Hypo-osmolality and hyponatremia; J44.0 Chronic obstructive pulmonary disease with (acute) lower respiratory infection; F19.20 Other psychoactive substance dependence, uncomplicated; I48.0 Paroxysmal atrial fibrillation; E86.1 Hypovolemia; E03.9 Hypothyroidism, unspecified; G89.4 Chronic pain syndrome; M54.5 Low back pain; G25.81 Restless legs syndrome; F41.8 Other specified anxiety disorders; Z79.899 Other long term (current) 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; Z88.8 Allergy status to other drugs, medicaments and biological substances
CPT/HCPCS: 36415; 71045; 80048; 80053; 80162; 81001; 83735; 84484; 85025; 85610; 87070; 87205; 87502; 93005; 93010; 93306; 94640; 94760; 96361; 96365; 96375; 97110; 97112; 97116; 97163; 97166; 99285-25; J0456; J0696; J1160; J1650; J2405; J3475; J7030; J7060; J7120; J7121

== ENCOUNTER 2019-10-10 18:42 | Emergency (ER) | payer MEDICARE, OTHER ==
[~2019-10-10] VITALS: Ht 154.9 cm; Wt 49.9 kg
--- OUTSIDE RECORDS SUMMARY | ~2019-10-10 | XMS | Encounter Summary ---
Demographics + + + | Address | [address] | | | [place] [address] | + + + | Home Phone | | + + + | Preferred Language | Unknown | + + + | Marital Status | | + + + | Pentecostal Affiliation | 1013 | + + + | Race | Unknown | + + + | Ethnic Group | Unknown | + + + Author + + + | Author | [facility] | | | and [place] | + + + | Organization | [facility] | | | and [place] | + + + | Address | Unknown | + + + | Phone | Unavailable | + + + Support + + +---------+ + | Name | Relationship | Address | Phone | + + +---------+ + | Giuseppe Menchaca | ECON | Unknown | | + + +---------+ + | Nathalia Weinstein Tr ECON | Unknown | | + + +---------+ + Care Team Providers + +------+ + | [facility] Director Name | Role | Phone | + +------+ + | Concepción Gallardo NP | PCP | | + +------+ + Reason for Visit + + + | Reason | Comments | + + + | Back Pain | low back pain radiating to left leg | + + + Encounter Details +--------+---------+ + + + | Date | Type | Department | Care Team | Description | +--------+---------+ + + + | 08/05/ | Office | [facility] | [place], | Foraminal stenosis | | 2013 | Visit | PHYSIATRY [address] | [address] | of lumbar region - | | | | [place], | [address] [place], | left L5-S1 (Primary | | | | [place] [address] | [place] [address] | Dx); Left lumbar | | | | [phone] | [phone] | radiculopathy; DDD | | | | | | (degenerative disc | | | | | | disease), lumbar; | | | | | | Facet arthritis of | | | | | | lumbar region | +--------+---------+ + + + Social History + +-------+ [...] + + + | Blood Pressure | 109/70 | 08/05/2014 11:26 AM | | | | | PDT | | + + + + + | Pulse | 82 | 08/05/2014 11:26 AM | | | | | PDT | | + + + + + | Temperature | - | - | | + + + + + | Respiratory Rate | - | - | | + + + + + | Oxygen Saturation | - | - | | + + + + + | Inhaled Oxygen | - | - | | | Concentration | | | | + + + + + | Weight | 64 kg (141 lb) | 08/05/2014 11:26 AM | | | | | PDT | | + + + + + | Height | 162.6 cm (5' 4") | 08/05/2014 11:26 AM | | | | | PDT | | + + + + + | Body Mass Index | 24.2 | 08/05/2014 11:26 AM | | | | | PDT | | + + + + + documented in this encounter Patient Instructions Patient Instructions Yaneli Dueñas PA-C - 08/05/2014 11:48 AM PDT Follow-up at the hospital thirty minutes before your scheduled procedure to allow for time to check in. You may eat and drink as usual on the day of the procedure. If you are scheduled for an epidural injection do not take any blood thinning medications f or at least 5-7 days prior to your procedure unless you have been instructed by another phys ician not to discontinue blood thinning medications. If you are having a procedure other than an epidural injection (i.e. facet injection, media l branch block, SI joint injection or other joint injection) it is not absolutely necessary to discontinue blood thinning medications but doing so will decrease the risk of bruising or bleeding. If you have had a prior stroke, DVT or PE or if you are taking blood thinning medication be cause you have atrial fibrillation, a prosthetic cardiac valve replacement or heart stenting do not stop taking your blood thinning medications unless you have permission from your car diologist or primary care provider. All other medications should be taken as usual on the day of the procedure. Common blood thinning medications include: Aspirin (a baby aspirin is o.k.) Ibuprofen (Advil or Motrin) Naproxen (Aleve) Nabumetone (Relafen) Clopidogrel (Plavix) Dipyridamole/ASA (Aggrenox) Warfarin (Coumadin) Dabigatran (Pradaxa) Rivaroxaban (Xarelto) There are many others. If you have questions about your medications and whether or not you should stop any medications please contact our office. If you are having an epidural injection or if you take any medication for relaxation/sedati on on the day of the procedure you must provide a vacuum truck driver to take you home. For all procedur es it is recommended that someone else drive you home. documented in this encounter Progress Notes Yaneli Duñeas PA-C - 08/05/2014 11:26 AM PDTFormatting of this note might be differe nt from the original. CHIEF COMPLAINT: Chief Complaint Patient presents with Back Pain low back pain HISTORY OF PRESENT ILLNESS: The patient is a 69 y.o. female being seen today in follow-up for complaints of low back pa in with left sided leg pain. The patient has been seen for this complaint in the past, wit h initial visit started by Dr. Dietz. Previously it was recommended that left L5-S1 TF BRITTNEY. This was performed on 04/18/14. She reports that the treatment was effective for the la st 3 months. She reports that the symptoms are worsening in the last 2 weeks. She rates the pain as 4 on scale of 1-10. She describes the pain as aing with occasional s harp shooting pain down the left leg. Her symptoms worsen with standing, walking and any movement. Her symptoms improve with heat and rest, she does take oxycodone for pain relief, which hel ps reduce the severity but does not eliminate the pain. The patient does describe numbness of the left foot on occasion. She does report weakness of the left leg. The patient does report recent falls. Stating h er left leg pain gets to the point there it collapses. She does not have bowel and bladder dysfunction. She does not have saddle anesthesia. Treatments for these complaints have included prior L5-S1 injections and facet injections w deon Dietz, physical therapy, narcotic medications, NSAIDS and neuropathic pain medi cine which has not helped in the past.. Patient's medications, allergies, past medical, surgical, social and family histories were reviewed and updated as appropriate. CURRENT MEDICATIONS: Current Outpatient Prescriptions Medication Sig Dispense Refill albuterol 5 mg/mL nebulizer solution Take 2.5 mg by nebulization every 6 hours as neede d. clonazepam (KLONOPIN) 2 MG tablet Take 2 mg by mouth Twice daily as needed. ergocalciferol (VITAMIN D-2) 50,000 units capsule Take 50,000 Units by mouth Once a wee k. HYDROcodone-acetaminophen (NORCO) 10-325 mg per tablet Take 1 tablet by mouth every 6 h ours as needed. ibuprofen (ADVIL,MOTRIN) 600 MG tablet Take 600 mg by mouth every 6 hours as needed. ipratropium (ATROVENT) 500 mcg/2.5 mL nebulizer solution Take 0.5 mg by nebulization 4 times daily. levothyroxine (SYNTHROID, LEVOTHROID) 112 mcg tablet Take 112 mcg by mouth every mornin g (before breakfast). Loratadine 10 MG CAPS Take by mouth. mirtazapine (REMERON SOLTAB) 15 mg disintegrating tablet Take 15 mg by mouth nightly. oxyCODONE (ROXICODONE) 5 mg tablet Take 5 mg by mouth every 4 hours as needed. Ropinirole HCl (REQUIP XL) 6 MG TB24 Take 4.5 mg by mouth 4 times daily. tizanidine (ZANAFLEX) 2 MG tablet Take 2 mg by mouth as needed. In severe moments ALLERGIES: Allergies Allergen Reactions Lorazepam Morphine Zolpidem REVIEW OF SYSTEMS: (in the last 24 hours) GENERALLY: No fever, chills, weight changes. EYES: No vision changes. EARS, NOSE, AND THROAT: No hearing loss or tinnitis,no difficulty swallowing, no hoarseness . NEUROMUSCULAR: Please see the review of systems discussed above in the history of present illness. In addition, the patient has no dizziness, no blackouts, no headaches. CARDIOVASCULAR: No chest pain, no palpitations PULMONARY: No shortness of breath, no cough. GASTROINTESTINAL: No nausea, vomiting or diarrhea GENITOURINARY: No dysuria or hematuria SKIN: No rashes. HEMATOLOGIC/LYMPHATIC: No abnormal bleeding PHYSICAL EXAMINATION: Filed Vitals: 08/05/14 1126 BP: 109/70 Pulse: 82 PainSc: 4 PainLoc: Back Body mass index is 24.19 kg/(m^2). GENERAL: The patient is well developed and well nourished. She does appear uncomfortable w hen seated. HEENT: HEAD/FACE: EYES: EARS: NASOPHARNYX: OROPHARNYX: Normocephalic and atraumatic. There are no areas of recent trauma. Normal sclerae without icterus. No drainage or tenderness. Clear without drainage. Clear without erythema. SKIN Limited skin exam shows no significant rashes or lesions. There are not scars in the lumbar region. CHEST: The patient is in no acute respiratory distress with unlabored respirations. HEART: There is not lower extremity edema. ABDOMEN: Soft, non-tender, non-distended, and without palpable masses. The patient is not obese. NEUROLOGIC: The patient is awake, alert, and oriented to time, place, person. She follows simple and complex commands. Her speech is fluent. She comprehends speech well. She has no apparent deficits with short or ferry terminal agent memory. She has appropriate fund of knowledge Cranial nerves 2-12 appear grossly intact. Sensory exam does show diminished sensation to light touch in the left lower extremities. REFLEX: RIGHT LEFT PATELLAR 2+ 2+ ACHILLES 2+ 2+ MUSCULOSKELETAL There is no tenderness in the midline of the cervical or thoracic spine. T here is no major palpable deformity of the spine. Straight leg raise and slump-sit are positive on the left. Alejandro's maneuver and impingem ent testing were negative for any groin pain however it did reproduce her pain on the left. There was no tenderness to palpation over the greater trochanters or sacral sulci. The pa tient localized the majority of the pain to the L5 region and into the left leg following th e L5 dermatome. Lumbar facet loading was negative. Strength testing showed 5/5 strength th roughout the lower extremities except for left great toe extension which was either particip ation dependent. The patient was able to heel and toe walk without difficulty. There was n o redness, effusion, warmth or joint line tenderness in the knees or ankles. RADIOGRAPHIC REVIEW: The patient's imaging was reviewed in detail with the patient today during the visit. Most recent MRI shows lumbar DDD, facet arthritis at multi-levels, foraminal stenosis left L5-S1. ASSESSMENT: 1. 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 Left lumbar radiculopathy 3. DDD (degenerative disc disease), lumbar 4. Facet arthritis of lumbar region PLAN: 1. The patient has gained symptoms relief from previous L5-S1 TFESI's. I do this she is a good candidate for another injection, this will be performed this afternoon with Dr. Connie wakefield. 2. The patient is in the process of talking to neurosurgery. She has gone for a consultat ion, and recently had an MRI of her cervical spine, along with flexion/extension xray's perf ormed in [place] last week. I will request for these images to be transferred to her comp uter system. The patient is to follow up with Neurosurgery 09/10/14. I will ask them if hilda napoles can see her sooner. However if not, hopefully the TFESI injection performed today will r educe her symptoms until then. 3. Medications have been reviewed at today's visit with no changes made at this time. 4. The patient will follow up with us on a as-needed basis, we will see what neurosurgery says. I have informed her we can continue to do the injection every 3-4 months as long as logan greer keep working. ELECTRONICALLY SIGNED BY: Yaneli Dueñas PA-C, 08/05/2014 SUPERVISING PHYSICIAN: Shay Dietz MD, who was present in the clinic today during this visit. CC: Concepción Gallardo documented in t his encounter Plan of Treatment +--------+---------+ + + + | Date | Type | Specialty | Care Team | Description | +--------+---------+ + + + | 10/15/ | Office | Pain Medicine | Denys Sibley, | | | 2019 | Visit | | DO [address] | | | | | | [address] [place] | | | | | | [address] | | | | | | | | +--------+---------+ + + + documented as of this encounter Results FL BRITTNEY Lumbar Transforaminal (08/05/2014 1:53 PM PDT) + + | Specimen | + + | | + + + + + | Narrative | Performed At | + + + | 08/05/2014 Transforaminal Epidural Steroid Injection Diagnosis: | [facility] | | Lumbar radiculopathy ICD-9 Code 724.4 [address] | [facility] | | Joanne presents to the fluoroscopy suite for a [facility] | | fluoroscopically-guided left L5-S1 transforaminal epidural steroid | - IMAGING | | injection as part of conservative management for chronic pain with | | | lumbar radiculopathy and degenerative disk disease. After informed | | | consent was obtained, the patient lay in the prone position on the | | | fluoroscopy table. The area was identified under fluoroscopic | | | guidance. The area was prepped and draped in sterile fashion. A | | | 25-gauge, 1.5-inch needle was inserted into this region and | | | approximately 3 mL of buffered 1% lidocaine was infused. Then, a | | | 22-gauge spinal needle was inserted into the posterior superior | | | transforaminal space and advanced into the epidural space under | | | fluoroscopic guidance. Confirmation into the epidural space was | | | obtained with infusion of approximately 1 mL of Omnipaque contrast | | | which showed epidural flow as well as nerve sheath flow. Then, a | | | combination of 1.5 mL of 1% lidocaine and 1.5 mL of 6 mg/mL | | | Celestone was infused. The patient tolerated the procedure well | | | without complications. Pre- and post-procedure blood pressures | | | were stable. The patient was given verbal as well as written | | | follow-up instructions. Prior to the start of the procedure, | | | the following were performed and/or verified, including correct | | | patient identity, correct site/side marked and visible, agreement on | | | the procedure to be done, correct patient positioning and an | | | accurate procedure consent form. Any safety precautions based on | | | clinical history and/or medication use have been addressed. I | | | personally performed the procedure above. Estimated blood loss: | | | Minimal Complications: None Findings: As expected Anesthesia: | | | Local 1% Lidocaine | | + + + + + | Procedure Note | + + | Shay Dietz MD - 08/05/2014 5:35 PM PDT 08/05/2014Transforaminal Epidural | | Steroid InjectionDiagnosis: Lumbar radiculopathyICD-9 Code 724.4Laurie Harshal | | Joanne presents to the fluoroscopy suite for a fluoroscopically-guided left | | L5-S1 transforaminal epidural steroid injection as part of conservative management for | | chronic pain with lumbar radiculopathy and degenerative disk disease. After informed | | consent was obtained, the patient lay in the prone position on the fluoroscopy table. | | The area was identified under fluoroscopic guidance. The area was prepped and draped in | | sterile fashion. A 25-gauge, 1.5-inch needle was inserted into this region and | | approximately 3 mL of buffered 1% lidocaine was infused. Then, a 22-gauge spinal needle | | was inserted into the posterior superior transforaminal space and advanced into the | | epidural space under fluoroscopic guidance. Confirmation into the epidural space was | | obtained with infusion of approximately 1 mL of Omnipaque contrast which showed epidural | | flow as well as nerve sheath flow. Then, a combination of 1.5 mL of 1% lidocaine and | | 1.5 mL of 6 mg/mL Celestone was infused. The patient tolerated the procedure well | | without complications. Pre- and post-procedure blood pressures were stable. The | | patient was given verbal as well as written follow-up instructions. Prior to the start | | of the procedure, the following were performed and/or verified, including correct | | patient identity, correct site/side marked and visible, agreement on the procedure to be | | done, correct patient positioning and an accurate procedure consent form. Any safety | | precautions based on clinical history and/or medication use have been addressed. I | | personally performed the procedure above.Estimated blood loss: MinimalComplications: | | NoneFindings: As expectedAnesthesia: Local 1% Lidocaine | + + + + + + + | Performing | Address | City/State[facility] | Phone Number | | Organization | | | | + + + + + | [facility] | [address] 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
--- OUTSIDE RECORDS SUMMARY | ~2019-10-10 | XMS | Encounter Summary ---
Demographics + + + | Address | [address] | | | [place] [address] | + + + | Home Phone | | + + + | Preferred Language | Unknown | + + + | Marital Status | | + + + | Pentecostal Affiliation | 1013 | + + + | Race | Unknown | + + + | Ethnic Group | Unknown | + + + Author + + + | Author | [facility] | | | and [place] | + + + | Organization | [facility] | | [...] Team Providers + +------+ + | Care Floors Buffer Name | Role | Phone | + +------+ + | Wendi Aiken | PCP | | + +------+ + Encounter Details +--------+ + + + + | Date | Type | Department | Care Team | Description | +--------+ + + + + | 07/11/ | Abstract | [facility] | Sj Valdes MD | | | 2017 | | NEUROSURGERY [address] | [address] | | | | | [address] | [place] [address] | | | | | [place] | [phone] | | | | | [address] | | | | | | [phone] | | | +--------+ + + + [...] [place] | | | | | | [address] [place] | | | | | | [address] | | | | | | | | +--------+---------+ + + + documented as of this encounter Visit Diagnoses Not on filedocumented in this encounter"
--- OUTSIDE RECORDS SUMMARY | ~2019-10-10 | XMS | Encounter Summary ---
Demographics + + + | Address | [address] | | | [place] [address] | + + + | Home Phone | | + + + | Preferred Language | Unknown | + + + | Marital Status | Single | + + + | Mosque Affiliation | NON | + + + | Race | White | + + + | Ethnic Group | Not or | + + + Author + + + | Author | [facility] | + + + | Organization | [facility] | + + + | Address | Unknown | + + + | Phone | Unavailable | + + + Support + + +---------+ + | Name | Relationship | Address | Phone | + + +---------+ + | Royce Menchaca | ECON | Unknown | | + + +---------+ + Care Team Providers + +------+ + | Care Automat Car Attendant Name | Role | Phone | + +------+ + | Oxana Nye | PCP | | + +------+ + Encounter Details +--------+ + + + + | Date | Type | Department | Care Team | Description | +--------+ + + + + | 03/12/ | MyChart | Cardiology General | Airam Fuchs MD | RE: My cholesterol | | 2016 | Encounter | at [facility] [address] | [address] | test results | | | | Abbe Soto Mailcode: | [facility] [address], | | | | | [address] | [place] [address] | | | | | [facility], | [phone] | | | | | [place] [address] [facility] | | | | | | Floor [place], [place] | | | | | | [address] | | | | | | [phone] | | | +--------+ + + + [...]
--- OUTSIDE RECORDS SUMMARY | ~2019-10-10 | XMS | Encounter Summary ---
Demographics + + + | Address | [address] | | | [place] [address] | + + + | Home Phone | | + + + | Preferred Language | Unknown | + + + | Marital Status | | + + + | Gnosticism Affiliation | 1013 | + + + | Race | Unknown | + + + | Ethnic Group | Unknown | + + + Author + + + | Author | [facility] | | | and [place]rit[place] | + + + | Organization | [facility] [...] Team Providers + +------+ + | Care Electric Crane Operator Name | Role | Phone | + +------+ + | No, Physician | PCP | Unavailable | + +------+ + Reason for Referral Diagnostic/Screening (Routine) +--------+--------+ + + + + | Status | Reason | Specialty | Diagnoses / | Referred By | Referred To | | | | | Procedures | Contact | Contact | +--------+--------+ + + + + | Closed | | Radiology | Diagnoses | | [facility] | | | | | Chronic low | [place], | [address] | | | | | back pain | Shay Mukherjee MD | [place], | | | | | Lumbar | [address] | [place] | | | | | radiculopath | [place] | [address] | | | | | y | [place], [place] | Phone: | | | | | Procedures | [address] | [phone] | | | | | MRI Lumbar | Phone: | Fax: | | | | | Spine wo | [phone] | [phone] | | | | | Contrast | Fax: | | | | | | MRI | [phone] | | +--------+--------+ + + + + Reason for Visit Diagnostic/Screening (Routine) +--------+--------+ + + + + | Status | Reason | Specialty | Diagnoses / | Referred By | Referred To | | | | | Procedures | Contact | Contact | +--------+--------+ + + + + | Closed | | Radiology | Diagnoses | | [facility] | | | | | Chronic low | [place], | [address] | | | | | back pain | Shay Mukherjee MD | [place], | | | | | Lumbar | [address] | [place] | | | | | radiculopath | [place] | [address] | | | | | y | [place], [place] | Phone: | | | | | Procedures | [address] | [phone] | | | | | MRI Lumbar | Phone: | Fax: | | | | | Spine wo | [phone] | [phone] | | | | | Contrast | Fax: | | | | | | MRI | [phone] | | +--------+--------+ + + + + Encounter Details +--------+ + + + + | Date | Type | Department | Care Team | Description | +--------+ + + + + | 04/12/ | Hospital | [facility] | Shay Dietz | Chronic low back | | 2013 | Encounter | MED CTR MRI [address] | [address], [address] | pain; Lumbar | | | | [address] [place], | [place], [place] | radiculopathy | | | | [place] [address] | [address] | | | | | [phone] | | | +--------+ + + + [...] every 6 hours | | | | 4 | | ophen (NORCO) 10-325 | as [...] [place] | | | | | | [address] | | | | | | | | +--------+---------+ + + + documented as of this encounter Procedures + +--------+ + + + | Procedure Name | Priori | Date/Time | Associated Diagnosis | Comments | | | ty | | | | + +--------+ + + + | MRI LUMBAR SPINE WO | Routin | 04/12/2014 | Chronic low back | Results for this | | CONTRAST | e | 11:11 AM | pain Lumbar | procedure are in the | | | | PDT | radiculopathy | results section. | + +--------+ + + + documented in this encounter Results MRI Lumbar Spine wo Contrast (04/12/2014 11:11 AM PDT) + + | Specimen | + + | | + + + + + | Narrative | Performed At | + + + | MRI LUMBAR SPINE WO CONTRAST 04/12/2014 10:47 AM HISTORY: Lumbar | MISCELANIOUS | | radiculopathy. Chronic low back pain. COMPARISON: Lumbar spine | LAB | | MRI dated 09/09/2011, 04/22/2011. PROTOCOL: Sagittal T2, sagittal | | | T1, axial T2, axial T1, sagittal STIR, coronal T2. FINDINGS: | | | Vertebral body height are preserved. There is mild to moderate | | | spondylosis. Mild levoscoliosis is observed. Modic type II changes | | | are at L5/S1. There is disc desiccation of the lower thoracic | | | spine and lumbar spine. Mild disc narrowing is at L3/4. There is | | | moderate disc narrowing at L5/S1. Imaged spinal cord and cauda | | | equina demonstrate normal signal with no evidence for myelomalacia or | | | mass lesions. The conus medullaris terminates at level L1, which is | | | normal. Imaged abdomen and pelvis demonstrate no acute findings. | | | L2/3: A 2 mm posterior disc bulge is present along with moderate | | | facet hypertrophy. There is no significant stenosis. L3/4: A 3 mm | | | posterior disc bulge is present along with moderate facet | | | hypertrophy. There is no central canal stenosis. Moderate right and | | | mild left neural foraminal canal stenoses are seen. There is | | | encroachment upon the right L3 nerve root. L4/5: A 3 mm | | | posterior disc bulge is observed along with moderate facet | | | hypertrophy and ligamentum flavum hypertrophy. There is mild central | | | canal stenosis. AP dimension is 10 mm. Mild bilateral neural | | | foraminal canal stenoses are seen. L5/S1: A 6 mm posterior disc | | | bulge is present with tearing of the annulus. There is moderate facet | | | hypertrophy. No significant central canal stenosis is seen. Mild | | | right and moderate left neural foraminal canal stenoses are present. | | | There is encroachment upon the left L5 nerve root. Overall | | | degenerative changes have remained stable. IMPRESSION - STABLE | | | DEGENERATIVE CHANGES OF MULTIPLE LEVELS THAT INCLUDES MILD CENTRAL | | | CANAL STENOSIS AT LEVEL L4/5 MODERATE RIGHT NEURAL FORAMINAL CANAL | | | STENOSIS AT L3/4, AND MODERATE LEFT NEURAL FORAMINAL CANAL STENOSIS | | | AT L5/S1. ASSOCIATED ENCROACHMENT UPON THE RIGHT L3 NERVE ROOT AND | | | THE LEFT L5 NERVE ROOT ARE SEEN. LESSER DEGENERATIVE CHANGES AT | | | OTHER LEVELS DESCRIBED ABOVE. Dictated and Signed by: Carlos | | | MD Michael Electronically signed: 04/12/2014 12:35 PM | | + + + + + | Procedure Note | + + | Junior, Rad Results In - 04/12/2014 12:38 PM PDT MRI LUMBAR SPINE WO CONTRAST 04/12/2014 | | 10:47 AM HISTORY: Lumbar radiculopathy. Chronic low back pain.COMPARISON: Lumbar spine | | MRI dated 09/09/2011, 04/22/2011.PROTOCOL: Sagittal T2, sagittal T1, axial T2, axial T1, | | sagittal STIR, coronalT2.FINDINGS:Vertebral body height are preserved. There is mild to | | moderate spondylosis. Mildlevoscoliosis is observed. Modic type II changes are at L5/S1. | | There is disc desiccation of the lower thoracic spine and lumbar spine. Milddisc | | narrowing is at L3/4. There is moderate disc narrowing at L5/S1.Imaged spinal cord and | | cauda equina demonstrate normal signal with no evidencefor myelomalacia or mass lesions. | | The conus medullaris terminates at level L1,which is normal.Imaged abdomen and pelvis | | demonstrate no acute findings.L2/3: A 2 mm posterior disc bulge is present along with | | moderate facethypertrophy. There is no significant stenosis.L3/4: A 3 mm posterior disc | | bulge is present along with moderate facethypertrophy. There is no central canal | | stenosis. Moderate right and mild leftneural foraminal canal stenoses are seen. There is | | encroachment upon the rightL3 nerve root. L4/5: A 3 mm posterior disc bulge is observed | | along with moderate facethypertrophy and ligamentum flavum hypertrophy. There is mild | | central canalstenosis. AP dimension is 10 mm. Mild bilateral neural foraminal canal | | stenosesare seen. L5/S1: A 6 mm posterior disc bulge is present with tearing of the | | annulus. Thereis moderate facet hypertrophy. No significant central canal stenosis is | | seen.Mild right and moderate left neural foraminal canal stenoses are present. Thereis | | encroachment upon the left L5 nerve root.Overall degenerative changes have remained | | stable.IMPRESSION -STABLE DEGENERATIVE CHANGES OF MULTIPLE LEVELS THAT INCLUDES MILD | | CENTRAL CANALSTENOSIS AT LEVEL L4/5 MODERATE RIGHT NEURAL FORAMINAL CANAL STENOSIS AT | | L3/4,AND MODERATE LEFT NEURAL FORAMINAL CANAL STENOSIS AT L5/S1. ASSOCIATEDENCROACHMENT | | UPON THE RIGHT L3 NERVE ROOT AND THE LEFT L5 NERVE ROOT ARE SEEN.LESSER DEGENERATIVE | | CHANGES AT OTHER LEVELS DESCRIBED ABOVE.Dictated and Signed by: Carlos Rodriguez MD | | Electronically signed: 04/12/2014 12:35 PM | |hypertrophy. There is no central canal stenosis. Moderate right and mild left | |neural foraminal canal stenoses are seen. There is encroachment upon the right | |L3 nerve root. | | | |L4/5: A 3 mm posterior disc bulge is observed along with moderate facet | |hypertrophy and ligamentum flavum hypertrophy. There is mild central canal | |stenosis. AP dimension is 10 mm. Mild bilateral neural foraminal canal stenoses | |are seen. | | | |L5/S1: A 6 mm posterior disc bulge is present with tearing of the annulus. There | |is moderate facet hypertrophy. No significant central canal stenosis is seen. | |Mild right and moderate left neural foraminal canal stenoses are present. There | |is encroachment upon the left L5 nerve root. | | | |Overall degenerative changes have remained stable. | | | |IMPRESSION - | |STABLE DEGENERATIVE CHANGES OF MULTIPLE LEVELS THAT INCLUDES MILD CENTRAL CANAL | |STENOSIS AT LEVEL L4/5 MODERATE RIGHT NEURAL FORAMINAL CANAL STENOSIS AT L3/4, | |AND MODERATE LEFT NEURAL FORAMINAL CANAL STENOSIS AT L5/S1. ASSOCIATED | |ENCROACHMENT UPON THE RIGHT L3 NERVE ROOT AND THE LEFT L5 NERVE ROOT ARE SEEN. | | | |LESSER DEGENERATIVE CHANGES AT OTHER LEVELS DESCRIBED ABOVE. | | | |Dictated and Signed by: Carlos Rodriguez MD | | Electronically signed: 04/12/2014 12:35 PM | + + + +---------+ + + | Performing | Address | City/State/Zipcode | Phone Number | | Organization | | | | + +---------+ + + | [facility]CE[facility]OUS LAB | | | [phone] | + +---------+ + + | MISCELANIOUS LAB | | | [phone] | + +---------+ + + documented in this encounter Visit Diagnoses + + | Diagnosis | + + | Chronic low back pain Lumbago | + + | Lumbar radiculopathy Thoracic or lumbosacral neuritis or radiculitis, unspecified | + + documented in this encounter"
--- OUTSIDE RECORDS SUMMARY | ~2019-10-10 | XMS | Encounter Summary ---
Demographics + + + | Address | [address] | | | [place] [address] | + + + | Home Phone | | + + + | Preferred Language | Unknown | + + + | Marital Status | | + + + | Hinduism Affiliation | 1013 | + + + [...] Team Providers + +------+ + | Care Panel Maker Name | Role | Phone | + [...] + + | 04/03/ | Telephone | [facility] | Nick Martinez, | Medication Question | | 2017 | | PHYSIATRY [address] | PA-C [address] | | | | | [place], | [address] [place] | | | | | [place] [address] | [place] [address] | | | | | [phone] | [phone] | | | | | | | [...] [place] | | | | | | [id number] | | | | | | | | +--------+---------+ + + + documented as of this encounter Visit Diagnoses Not on filedocumented in this encounter"
--- OUTSIDE RECORDS SUMMARY | ~2019-10-10 | XMS | Encounter Summary ---
Demographics + + + | Address | [address] | | | [place] [address] | + + + | Home Phone | | + + + | Preferred Language | Unknown | + + + | Marital Status | | + + + | Amish Affiliation | 1013 | + + + | Race | Unknown | + + + | Ethnic Group | Unknown | + + + Author + + + | Author | [facility] | | | and [place] | + + + | Organization | [facility] | | | and [place] | + + + | Address | Unknown | + + + | Phone | Unavailable | + + + Support + + +---------+ + | Name | Relationship | Address | Phone | + + +---------+ + | Giuseppe Menchaca | ECON | Unknown | | + + +---------+ + | Nathalia Weinstien | ECON | Unknown | | + + +---------+ + Care Team Providers + +------+ + | Care Gas Pumper Name | Role | Phone | + [...] + + | 04/03/ | Telephone | [facility] | Nick Martinez, | Medication Question | | 2017 | | PHYSIATRY [address] | PA-C [address] | | | | | [place], | [address] [place] | | | | | [place] [address] | [place] [address] | | | | | [phone] | [phone] | | | | | | | [...] [place] | | | | | | [id number] | | | | | | | | +--------+---------+ + + + documented as of this encounter Visit Diagnoses Not on filedocumented in this encounter"
--- OUTSIDE RECORDS SUMMARY | ~2019-10-10 | XMS | Encounter Summary ---
Demographics + + + | Address | [address] | | | [place] [address] | + + + | Home Phone | | + + + | Preferred Language | Unknown | + + + | Marital Status | | + + + | Latter-Day Affiliation | 1013 | + + + | Race | Unknown | + + + | Ethnic Group | Unknown | + + + Author + + + | Author | [facility] | | | and [place]rit[place] | + + + | Organization | [facility] | | [...] Team Providers + +------+ + | Care Coating Inspector Name | Role | Phone | + [...] [address] | | | | | [place], | [address] [place], | | | | | [place] [address] | [place] [address] | | | | | [phone] | [phone] | | | | | | | [...] [place] | | | | | | [address] | | | | | | | | +--------+---------+ + + + documented as of this encounter Visit Diagnoses Not on filedocumented in this encounter"
--- OUTSIDE RECORDS SUMMARY | ~2019-10-10 | XMS | Encounter Summary ---
Demographics + + + | Address | [address] | | | [place] [address] | + + + | Home Phone | | + + + | Preferred Language | Unknown | + + + | Marital Status | | + + + | Taoism Affiliation | 1013 | + + + | Race | Unknown | + + + | Ethnic Group | Unknown | + + + Author + + + | Author | [facility] | | | and [place] | + + + | Organization | [facility] | | | [...] Team Providers + +------+ + | Care Clutch Assembler Name | Role | Phone | + +------+ + | Wendi Aiken | PCP | | + +------+ + Encounter Details +--------+ + + + + | Date | Type | Department | Care Team | Description | +--------+ + + + + | 05/26/ | Hospital | [facility] | Conversion | Pain | | 2018 | Encounter | CONVERSION [address] | Transaction, | | | | | [address] | Provider Unknown | | | | | [place], [place] | | | | | | [address] | (Fax) | | | | | [phone] | | | +--------+ + + + [...] + + + +---------+ + + | acetaminophen | Take 500 mg by mouth | | 0 | | | | (TYLENOL) 500 mg | every 6 hours as | | | | 8 | | tablet | needed for Pain. | | [...] + + + +---------+ + + | lidocaine | Apply up to 3 | 30 | 0 | 04/03/20 | | | (LIDODERM) 5% patch | patches TOPICALLY at | patch | | 18 | 8 | | | one time, for up to | | | | | | | 12 hours within a | | | | | | | 24-hour period | | | | | + + + +---------+ + + | | Apply 2 g topically | | 0 | | | | LIDOCAINE-PRILOCAINE | 3 times daily. | | | | 8 | | EX | | | | | | + + + +---------+ + + | methocarbamol | Take 750 mg by mouth | | 0 | | | | (ROBAXIN) 750 mg | 4 times daily. | | | | 8 | | tablet | | | | | | + + + +---------+ + + | mirabegron | Take 25 mg by mouth | | 0 | | | | (MYRBETRIQ) 25 mg ER | Daily. | | | | 8 [...] [place] | | | | | | [id number] | | | | | | | | +--------+---------+ + + + documented as of this encounter Procedures + +--------+ + + + | Procedure Name | Priori | Date/Time | Associated Diagnosis | Comments | | | ty | | | | + +--------+ + + + | MRI LUMBAR SPINE WO | Routin | 05/09/2018 | | Results for this | | CONTRAST | e | 2:54 AM | | procedure are in the | | | | PDT | | results section. | + +--------+ + + + documented in this encounter Results MRI Lumbar Spine wo Contrast (05/09/2018 2:54 AM PDT) + + | Specimen | + + | | + + + + + | Narrative | Performed At | + + + | This is a non-reportable procedure without a radiologist report and | | | is used for image storage only | | + + + + + | Procedure Note | + + | Reji Pacheco - 06/13/2019 8:20 AM PDT This is a non-reportable procedure | | without a radiologist report and isused for image storage only | + + documented in this encounter Visit Diagnoses + + | Diagnosis | + + | Pain Generalized pain | + + documented in this encounter"
--- OUTSIDE RECORDS SUMMARY | ~2019-10-10 | XMS | Encounter Summary ---
Demographics + + + | Address | [address] | | | [place] [address] | + + + | Home Phone [...] + + | Author | [facility] | | | and [place] | + + + | Organization | [facility] | | [...] Team Providers + +------+ + | Care Graphite Disk Assembler Name | Role | Phone | + +------+ + | Miuqel Calhoun MD | PCP | | + +------+ + Encounter Details +--------+ + + + + | Date | Type | Department | Care Team | Description | +--------+ + + + + | 09/18/ | Hospital | [facility] | Shay Dietz | | | 2012 | Encounter | MED CTR XRAY [address] | [address] | | | | | [place] | [address] [place], [place] | | | | | [place] [address] | [address] | | | | | [phone] | | | +--------+ + + + [...] + + + +---------+ + + | ASPIRIN | Take 2 tablets by | | 0 | | | | | mouth 3 times daily | | | | 4 | | | as needed. | | | | | + + + +---------+ + + | ClonazePAM | TABS | | 0 | 07/13/20 | | | (DAVID [place]OM[place]) | | | | 12 | 4 [...] +---------+ + + | oxyCODONE | Take 10 mg by mouth | | 0 | | | | (OXYCONTIN) 10 mg 12 | nightly. | | | | 4 | | hr tablet | | | | | [...] 2018 | Visit | | DO [address] | | | | | | [place] | | | | | | [address] | | | | | | | | +--------+---------+ + + + documented as of this encounter Visit Diagnoses Not on filedocumented in this encounter"
--- OUTSIDE RECORDS SUMMARY | ~2019-10-10 | XMS | Encounter Summary ---
Demographics + + + | Address | [address] | | | [place] [address] | + + + | Home Phone | | + + + | Preferred Language | Unknown | + + + | Marital Status | | + + + | Scientology Affiliation | 1013 | + + + | Race | Unknown | + + + | Ethnic Group | Unknown | + + + Author + + + | Author | [facility] | | | and Priteshana | + + + | Organization | [facility] | | [...] Team Providers + +------+ + | Care Knockout Man Name | Role | Phone | + +------+ + | Romy De La Paz MD | PCP | | + +------+ + Encounter Details +--------+---------+ + + + | Date | Type | Department | Care Team | Description | +--------+---------+ + + + | 09/17/ | Office | [facility] | Denys Sibley G, | S/P insertion of | | 2018 | Visit | [facility] | DO [address] | spinal cord | | | | [address] [place], [place] | stimulator (Primary | | | | [address] | [id number] | Dx); Spinal stenosis | | | | [place], [place] | | of lumbosacral | | | | [address] | | region; Lumbar | | | | [phone] | | region somatic | | | | | | dysfunction; | | | | | | Intractable back | | | | | | pain; Encounter for | | | | | | long-term use of | | | | | | opiate analgesic; | | | | | | Degenerative lumbar | | | | | | spinal stenosis; | | | | | | Chronic pain | | | | | | disorder; Chronic | | | | | | bilateral low back | | | | | | pain without | | | | | | sciatica; Low back | | | | | | pain without | | | | | | sciatica, | | | | | | unspecified back | | | | | | pain laterality, | | | | | | unspecified | | | | | | chronicity; | | | | | | Spondylosis [...] region | | | | | | without myelopathy | | | | | | or radiculopathy; | | | | | | BACK PAIN, LUMBAR; | | | | | | Closed compression | | | | | | fracture of L5 | | | | | | lumbar vertebra with | | | | | | routine healing, | | | | | | subsequent | | | | | | encounter; Closed | | | | | | compression fracture | | | | | | of fifth lumbar | | | | | | vertebra, sequela; | | | | | | SACROILIITIS; | | | | | | Chronic bilateral | | | | | | low back pain with | | | | | | right-sided | | | | | | sciatica; Strain of | | | | | | lumbar region, | | | | | | sequela [...] + + + | Blood Pressure | 102/52 | 09/17/2019 7:57 AM | | | | | PST | | + + + + + | Pulse | 78 | 09/17/2019 7:57 AM | | | | | PST | | + + + + + | Temperature | - | - | | + + + + + | Respiratory Rate | 16 | 09/17/2019 7:57 AM | | | | | PST | | + + + + + | Oxygen Saturation | 98% | 09/17/2019 7:57 AM | | | | | PST | | + + + + + | Inhaled Oxygen | - | - | | | Concentration | | | | + + + + + | Weight | 50.3 kg (111 lb) | 09/17/2019 7:57 AM | | | | | PST | | + + + + + | Height | 154.9 cm (5' 1") | 09/17/2019 7:57 AM | | | | | PST | | + + + + + | Body Mass Index | 20.97 | 09/17/2019 7:57 AM | | | | | PST | | + + + + + documented in this encounter Progress Notes Denys Sibley, DO - 09/17/2019 8:00 AM PSTFormatting of this note might be different fr om the original. CHRONIC PAIN VISIT Patient ID: Kori Rubio is a 74 y.o. female (: 1945). 74-year-old female seen back to the office today for medication evaluation follow-up. Current medications include a fentanyl patch 12 mcg applied to the anterior chest wall ever y 72 hours. Duff 10/325 1 p.o. every 6 hours as needed pain Subjective: Chronic Pain: Kori Rubio presents for chronic pain evaluation [...] including but not limited to physical therapy, senior caregiver, acupuncture, massage therapy, and nutritional healt h counselors. and mental health counselors as deemed necessary Today's Pain Score: 5/10. Patient states that her pain overall has slightly improved on her current regimen. The patient reports Moisture and cold weather worsens symptoms, and [address] heat pain medication and muscle relaxants relieves symptoms. Additional psycho-social ricardo nts since last visit include: none. The patient's current personal goal of pain management is: "To be off of all pain medication to be pain-free". Things she is doing to reach that goal include: Home exercise program. Patient has follow-up appointment regarding shoulder p ain with orthopedic surgery I believe. Progress toward meeting that goal has been: fair. Medication FYI Flag Type Author Status Filed Medication Agreement Active 06/20/2019 11:11 AM Pain Contract- Dr. Sibley 11/21/18 PEG Pain screening tool (Pain, enjoyment, general activity) Total score: (Printable questionnaires in [place] ) Interpretation of Total Score: PEG scores are used to track changes over time. It should de crease after therapy has begun. Last 4 PEG Scores: No flowsheet data found. Opioid Risk Tool (ORT): Total Score Pulse: 78 Resp: 16 BP: 102/52 SpO2: 98 % (From Chronic Pain tab; printable questionnaires in [place]) Interpretation of Total Score: 0 to 3 = Low risk: 6% chance of developing problematic behav iors, 4 to 7 = Moderate risk: 28% chance of developing problematic behaviors, 8 or more = Hi gh risk: 90% chance of developing problematic behaviors. No flowsheet data found. Outpatient Morphine Equivalent Daily Dose (MEDD) 09/17/19 and after None @PAINMEDS@ Current Outpatient Medications: ALBUTEROL IN, Inhale into the lungs., Disp: , Rfl: Ascorbic Acid (VITAMIN C) 1000 MG tablet, Take 1,000 mg by mouth Daily., Disp: , Rfl: Calcium Carb-Cholecalciferol (CALCIUM 1000 + D PO), Take by mouth., Disp: , Rfl: chlorhexidine (HIBICLENS) 4 % external liquid, Apply to affected area the night before and the morning of surgery., Disp: 118 mL, Rfl: 0 clonazePAM (KLONOPIN) 1 mg tablet, Take 1-2 mg by mouth nightly as needed for Anxiety. , Disp: , Rfl: fentaNYL (DURAGESIC) 12 mcg/hr, Place 1 patch onto the skin every 72 hours for 30 days ., Disp: 10 patch, Rfl: 0 HYDROcodone-acetaminophen (NORCO) 10-325 mg per tablet, Take 1 tablet by mouth every 6 hours as needed for Pain for up to 30 days., Disp: 120 tablet, Rfl: 0 levothyroxine (SYNTHROID) 100 mcg [...] daily., Dis p: 120 tablet, Rfl: 3 Multiple Vitamins-Minerals (MULTIVITAMIN WITH MINERALS) tablet, Take 1 tablet by mouth daily., Disp: , Rfl: naloxone (NARCAN) 4 mg/nasal spray, 1 spray by Nasal route as needed for Decreased Res ponsiveness (May repeat with second device into other nostril after 2 minutes)., Disp: 2 eac h, Rfl: 1 nitroglycerin (NITROSTAT) 0.4 mg SL tablet, Place 0.4 mg under the tongue every 5 nikos ishaan as needed for Chest pain., Disp: , Rfl: ondansetron (ZOFRAN) 24 MG [...] mouth 4 times daily., Disp: , Rfl: Past Medical History: Diagnosis Date Acid reflux disease Acute renal failure ([facility]) April 2013 Adverse effect of anesthesia hx hallucinations after anesthesia x 3 yrs ago. Anesthesia hallucinated after bladder repair Arthralgia Arthritis Asthma Asthma Back pain Cancer ([facility]) 2004 breast Cataract Cerebrovascular accident (CVA) ([facility]) no per pt Chronic back pain Chronic back pain Chronic constipation Concussion 07/2015 Preceeded by seizure Constipation COPD (chronic obstructive pulmonary disease) ([facility]) Degenerative disc disease Depression Depression Diabetes mellitus ([facility]) Diabetes mellitus, type 2 ([facility]) diet controlled Diabetes type 2, controlled ([facility]) diet controlled Diarrhea Disorder of thyroid Diverticulosis [...] Scoliosis Scoliosis of lumbar spine 04/17/2014 Seizure ([facility]) one due to meds, two due to [...] use: No Mood Screening: PHQ-9 Depression Scale (5-9 = Mild, 10-14 = Moderate, 15-19 = Moderately Severe, 20-27 = Severe) Anxiety Scale (5-9 = Mild, 10-14 = Moderate, 15-21 = Severe Anxiety) Additional Problems: HPI Status post insertion of spinal cord stimulator, spinal stenosis lumbar region, lumbar divya on somatic dysfunction, intractable low back pain, encounter for long-term use of opiate melisa lgesic, degenerative joint disease of the lumbar spine, chronic pain syndrome, chronic low b ack pain, bilateral shoulder pain right greater than left History: Past Medical History: Diagnosis Date Acid reflux disease Acute renal failure ([facility]) April 2013 Adverse effect of anesthesia hx hallucinations after anesthesia x 3 yrs ago. Anesthesia hallucinated after bladder repair Arthralgia Arthritis Asthma Asthma Back pain Cancer ([facility]) 2004 breast Cataract Cerebrovascular accident (CVA) ([facility]) no per pt Chronic back pain Chronic back pain Chronic constipation Concussion 07/2015 Preceeded by seizure Constipation COPD (chronic obstructive pulmonary disease) ([facility]) Degenerative disc disease Depression Depression Diabetes mellitus ([facility]) Diabetes mellitus, type 2 (HCC) diet controlled Diabetes type 2, controlled ([facility]) diet controlled Diarrhea Disorder of thyroid Diverticulosis [...] Procedure: KYPHOPLASTY; Surgeon: Alfredo Casillas DO; Location: [facility]; Service: Pa in Management; Laterality: N/A; L5 FRACTURE SURGERY ANKLE HERNIA REPAIR HYSTERECTOMY HYSTERECTOMY LAMINECTOMY N/A 08/03/2019 Procedure: LAMINOTOMY THORACIC / LUMBAR W/ PLACEMENT SPINAL CORD STIMULATOR; Surgeon: Suly Hutchins MD; [place] [facility] [place] OTHER [place]GICAL HISTORY EPIDURAL STEROID INJECTION OTHER SURGICAL HISTORY 08/28/2018 EPIDURAL STEROID INJECTION - LESI L4-L5 OTHER SURGICAL HISTORY 09/11/2018 EPIDURAL STEROID INJECTION - LESI L5-S1 OTHER SURGICAL HISTORY UNLISTED PROCEDURE ARTHROSCOPY SLING REMOVAL , BLADDER 2006 TUBAL LIGATION UPPER GASTROINTESTINAL ENDOSCOPY Review of Systems Objective: Vital Signs: BP 102/52 | Pulse 78 | Resp 16 | Ht 1.549 m (5' 1") | Wt 50.3 kg (111 lb) | LMP (LMP Unknown) | SpO2 98% | BMI 20.97 kg/m Physical Exam No results found for this or any previous visit (from the past 672 hour(s)). @ASSESSMENTPLANBEGIN@ 82-year-old female seen back in the office for medication evaluation follow-up. Patient vital signs stable skin texture and turgor good she bowel bladder continent without constipation problems on current medications. Active range of motion bilateral upper extremities limited shoulder flexion abduction to ap proximately 110 degrees. With pain greater than 90 degrees. With probable rotator cuff tea r on the right possibly left as well. Active range of motion bilateral lower extremities and functionless muscle strength is 4/5. Patient uses a single-point cane with ambulation Gait - Use a single-point cane for extended ambulation. Improved Functional Status for Age Including ADL's, Mobility and Transfers whe re appropriate Assistive Devices : Single-point cane Assessment and Plan: Chronic pain issues are [...] reviewed, listed controlled substances are consistent with [facility] prescriptions and patient reported use. Controlled Medications: no change. Refills given as appropriate for the next 1 months, and she will follow up befo re next refill is due. Recent Review Flowsheet Data There is no flowsheet data to display. Pertinent Pain History: Chronic pain related to Chronic pain syndrome, chronic low back pain, degenerative joint di sease of the lumbar spine, chronic bilateral low back pain without sciatica, status post spi nal cord stimulator, spinal stenosis lumbosacral region, Helpful treatments: Moist heat, pain medication, spinal cord stimulator, Failed treatments: Ice treatment ORT Score = 3 (0-3 = low risk, 4-7 = mod risk, 8+ = high risk) Daily Opioid Dose = Fentanyl patch 12 mg applied to the anterior chest wall every 72 hours, and hydrocodone 10/325 1 p.o. every 6 hours as needed breakthrough pain Daily Morphine Equivalent Dose (MED) = 70 mg of morphine daily Chronic benzodiazepine use: yes, Patient gets Klonopin from primary care physician for anxi ety disorder however this person appears to be retiring and they are searching for another s ource of medication Pain Agreement (date): {YES/2018Visits every: Monthly Drug Screen every: 3 times a Next Refill due: 30 days Follow-up: Patient will follow-up in this office in 4 weeks. Patient is doing quite well on current medications but is concerned about tapering down her medication which we are attempting to do. Patient complained of increased shoulder pain ri ght greater than left and will follow up with military technology specialist I believe regarding the shoulder pain she is received injections for this in the past which were successful. She de clined surgery at this point in time for rotator cuff tear. No follow-ups on file. Greater than 50% of the time of this visit was spent counseling the patient regarding medic ation management and/or coordinating care with other practitioners including Allied health p rofessionals and laboratory monitoring. No notes on file @ASSESSMENTPLANEND@ Alternative treatment modalities where discussed and offered to patient including but not l imited to physical therapy, massage therapy, acupuncture, senior caregiver, along with niki mmended psychological counseling, either privately, or in group sessions offered by private care individuals, community services, or taoism organizations. Appropriate referrals were made at patient [...] are noted in men and women. Ma ma men will suffer erectile dysfunction with these [...] and complications with the passage of time. superintendent container terminal use is also associated with depressions, and liver and renal failure. Finally, these medicines are associated with both physical and emotional addiction and can be difficult to stop after taking for only a few weeks. This document has been created using [employer] Voice Recognition software and [employer]. The entry has been reviewed for content and accuracy, but there may still exist "sound alike" long haul truck driver word errors and/or unintended additions and deletions. If there is any question please contact the author of the document: Denys Sibley DOElectrontran sig marianne by Denys Sibley DO at 09/17/2019 8:43 AM PSTdocumented in this encounter Plan of Treatment +--------+---------+ + + + | Date | Type | Specialty | Care Team | Description | +--------+---------+ + + + | 10/15/ | Office | Pain Medicine | Alvarez Sibleyph G, | | | 2019 | Visit | | DO [address] | | | | | | [address] [place] | | | | | | [id number] | | | | | | | [...] pain Backache, unspecified | + + | Encounter for long-term use of opiate analgesic Encounter for long-term (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 | | of other medications | + + | Degenerative lumbar spinal stenosis Spinal stenosis, lumbar region, without | | neurogenic claudication | + + | Chronic pain disorder Chronic pain syndrome | + + | Chronic bilateral low back pain without sciatica | + + | Low back pain without sciatica, unspecified back pain laterality, unspecified | | chronicity | + + | Spondylosis without myelopathy or radiculopathy, lumbosacral region | + + | Spondylosis without myelopathy or radiculopathy, cervical region | + + | Spondylosis of lumbar region without myelopathy or radiculopathy Lumbosacral | | spondylosis without myelopathy | + + | Closed compression fracture of L5 lumbar vertebra with routine healing, subsequent | | encounter | + + | Closed compression fracture of fifth lumbar vertebra, sequela | + + | SACROILIITIS Sacroiliitis, not elsewhere classified | + + | Chronic bilateral low back pain with right-sided sciatica | + + | Strain of lumbar region, sequela | + + documented in this encounter
--- OUTSIDE RECORDS SUMMARY | ~2019-10-10 | XMS | Encounter Summary ---
Demographics + + + | Address | [address] | | | [place] [address] | + + + | Home Phone | | + + + | Preferred Language | Unknown | + + + | Marital Status | | + + + | Evangelical Affiliation | 1013 | + + + | Race | Unknown | + + + | Ethnic Group | Unknown | + + + Author + + + | Author | [facility] | | | and Priteshana | + + + | Organization | [facility] | | | [...] Team Providers + +------+ + | Care Boilermaker Mechanic Name | Role | Phone | + +------+ + | Romy De La Paz MD | PCP | | + +------+ + Encounter Details +--------+---------+ + + + | Date | Type | Department | Care Team | Description | +--------+---------+ + + + | 09/17/ | Office | [facility] | Denys Sibley G, | S/P insertion of | | 2018 | Visit | [facility] | DO [address] | spinal cord | | | | [address] [place], [place] | stimulator (Primary | | | | [address] | [phone] | Dx); Spinal stenosis | | | | [place], [place] | | of lumbosacral | | | | [address] | | region; Lumbar | | | | [phone] | | region somatic | | | [...] anterior chest wall ever y 72 hours. Cypress 10/325 1 p.o. every 6 hours as [...] including but not limited to physical therapy, family day care worker, acupuncture, massage therapy, and nutritional healt h [...] general activity) Total score: (Printable questionnaires in [place] ) Interpretation of Total Score: PEG scores are used to track changes over time. It should de crease after therapy has begun. Last 4 PEG Scores: No flowsheet data found. Opioid Risk Tool (ORT): Total Score Pulse: 78 Resp: 16 BP: 102/52 SpO2: 98 % (From Chronic Pain tab; printable questionnaires in [place]) Interpretation of Total Score: 0 to 3 [...] Date Acid reflux disease Acute renal failure ([facility]) April 2013 Adverse effect of anesthesia hx hallucinations after anesthesia x 3 yrs ago. Anesthesia hallucinated after bladder repair Arthralgia Arthritis Asthma Asthma Back pain Cancer ([facility]) 2004 breast Cataract Cerebrovascular accident (CVA) ([facility]) no per pt Chronic back pain Chronic back pain Chronic constipation Concussion 07/2015 Preceeded by seizure Constipation COPD (chronic obstructive pulmonary disease) ([facility]) Degenerative disc disease Depression Depression Diabetes mellitus ([facility]) Diabetes mellitus, type 2 ([facility]) diet controlled Diabetes type 2, controlled ([facility]) diet controlled Diarrhea Disorder of thyroid [...] Scoliosis Scoliosis of lumbar spine 04/17/2014 Seizure ([facility]) one due to meds, two due [...] Arthralgia Arthritis Asthma Asthma Back pain Cancer ([facility]) 2004 breast Cataract Cerebrovascular accident (CVA) ([facility]) no per pt Chronic back pain Chronic back pain Chronic constipation Concussion 07/2015 Preceeded by seizure Constipation COPD (chronic obstructive pulmonary disease) ([facility]) Degenerative disc disease Depression Depression Diabetes mellitus (HCC) Diabetes mellitus, type 2 (HCC) diet controlled Diabetes type 2, controlled ([facility]) diet controlled Diarrhea Disorder of thyroid [...] Procedure: KYPHOPLASTY; Surgeon: Alfredo Casillas DO; Location: [facility]; Service: Pa in Management; Laterality: N/A; L5 FRACTURE SURGERY ANKLE HERNIA REPAIR HYSTERECTOMY HYSTERECTOMY LAMINECTOMY N/A 08/03/2019 Procedure: LAMINOTOMY THORACIC / LUMBAR W/ PLACEMENT SPINAL CORD STIMULATOR; Surgeon: Suly Hutchins MD; [place] [facility] [place] [facility] [place] OTHER SURGICAL HIST[place] EPIDURAL STEROID [...] reviewed, listed controlled substances are consistent with [facility] prescriptions and patient reported use. Controlled [...] than left and will follow up with health care law specialist I believe regarding the shoulder pain [...] imited to physical therapy, massage therapy, acupuncture, family day care worker, along with niki mmended psychological counseling, either privately, or in group sessions offered by private care individuals, community services, or christianity organizations. Appropriate referrals were made at patient [...] are noted in men and women. Ma nm men will suffer erectile dysfunction with these [...] and complications with the passage of time. dedicated intermodal truck driver use is also associated with depressions, and liver and renal failure. Finally, these medicines are associated with both physical and emotional addiction and can be difficult to stop after taking for only a few weeks. This document has been created using Blogger[employer] Voice Recognition software and [employer]. The entry has been reviewed for content and accuracy, but there may still exist "sound alike" hyperion essbase developer word errors and/or unintended additions and deletions. [...] [place] | | | | | | [id number] | | | | | | | [...]
--- OUTSIDE RECORDS SUMMARY | ~2019-10-10 | XMS | Encounter Summary ---
Demographics + + + | Address | [address] | | | [place] [address] | + + + | Home Phone | | + + + | Preferred Language | Unknown | + + + | Marital Status | | + + + | Shinto Affiliation | 1013 | + + + | Race | Unknown | + + + | Ethnic Group | Unknown | + + + Author + + + | Author | [facility] | | | and Priteshana | + + + | Organization | [facility] | | | [...] Team Providers + +------+ + | Care Ore Digger Name | Role | Phone | + [...] + + | 11/01/ | Office | [facility] | Shay Dietz | Back pain (Primary | | 2012 | Visit | [address]RY [address] | Dx); BACK PAIN, | | | | [address], | [address] [place], [place] | LUMBAR; | | | | [place] [address] | [address] | OSTEOARTHRITIS, | | | | [phone] | | LUMBOSACRAL SPINE; | | | [...] - 11/01/2012 9:06 AM PSTFollow[facility] the [facility] minutes before your scheduled [...] our off ice. Please also provide a otr owner operator truck driver to take you home on the [...] [place] | | | | | | [address] | | | | | | | [...]
--- OUTSIDE RECORDS SUMMARY | ~2019-10-10 | XMS | Encounter Summary ---
Demographics + + + | Address | [address] | | | [place] [address] | + + + | Home Phone | | + + + | Preferred Language | Unknown | + + + | Marital Status | | + + + | Evangelical Affiliation | 1013 | + + + | Race | Unknown | + + + | Ethnic Group | Unknown | + + + Author + + + | Author | [facility] | | | and Priteshana | + + + | Organization | [facility] | | | [...] Team Providers + +------+ + | Care Instrument Maintenance Supervisor Name | Role | Phone | + +------+ + PCP | Unavailable | + +------+ + Encounter Details +--------+ + + + + | Date | Type | Department | Care Team | Description | +--------+ + + + + | 09/22/ | Hospital | [facility] | Shay Dietz | | | 2010 | Encounter | MED CTR XRAY [address] | [address] | | | | | [place] | [address] [place], [place] | | | | | [place] [address] | [address] | | | | | [phone] | | | +--------+ + + + [...] [place] | | | | | | [address] | | | | | | | | +--------+---------+ + + + documented as of this encounter Procedures + +--------+ + + + | Procedure Name | Priori | Date/Time | Associated Diagnosis | Comments | | | ty | | | | + +--------+ + + + | FL FACET INJECTION | | 09/22/2011 | | Results for this | | | | 1:39 PM | | procedure are in the | | | | PST | | results section. | + +--------+ + + + documented in this encounter Results FL Facet Injection (09/22/2011 1:39 PM PST) + + | Specimen | + + | | + + + + + | Narrative | Performed At | + + + | [facility] Diagnostic Imaging Department | [facility] | | [address] [facility] | [facility] | | LUMBAR FACET INJECTIONS, | DIAG IMG | | 09/22/2011 CLINICAL HISTORY: ICD-9 CODE 721.3, LUMBAR | | | SPONDYLOSIS. Ms. Kori Rubio presents to the | | | fluoroscopy suite for fluoroscopically-guided bilateral L 4-L5 facet | | | injections as part of conservative management for chronic pain with | | | lumbar spondylosis. A fter informed consent was obtained, the | | | patient lay in the prone position on the fluoroscopy table. The | | | areas were identified under fluoroscopic guidance. The areas were | | | prepped and draped in sterile fashion. A 25-gauge, 1.5-inch needle | | | was inserted into each region and approximately 3 mL of buffere d 1% | | | lidocaine was infused. Then, a 22-gauge spinal needle was inserted | | | into the superior portion of the joints under fluoroscopic guidance. | | | Confirmation into the joint space was obtained with infusio n of | | | approximately 0.5 mL of Isovue contrast which showed outline of the | | | facet joints. Then, a combi nation of 1 mL of 1% lidocaine and 1 mL | | | of 40 mg/mL Kenalog was infused divided between the two sides . | | | The patient tolerated the procedure well without complications. | | | Pre- and post-procedure blood pre ssures were stable. The patient | | | was given verbal as well as written followup instructions, and the p | | | atient reported good improvement in pain symptoms post procedure. | | | Prior to the start of the procedure, the following were performed | | | and verified, including correct pat ient identity, correct site/side | | | marked and visible, agreement on the procedure to be done, correct p | | | atient positioning and an accurate procedure consent form. Any | | | safety precautions based on clinical history and/or medication use | | | have been addressed. I personally performed the procedure above. | | | Dictated Date/Time: 09/22/2011 17:09 Transcribed Date/Time: | | | 09/22/2011 18:07 Test Desk Operator: <Electronically Signed | | | by Shay Dietz MD> 09/27/11 1035 | | + + + + + | Procedure Note | + + | Junior, Rad Conversion - 12/07/2013 4:17 PM [facility] | | Diagnostic Imaging Department [address] [place] [address] | | LUMBAR FACET INJECTIONS, 09/22/2011 CLINICAL HISTORY: | | ICD-9 CODE 721.3, LUMBAR SPONDYLOSIS. Ms. Kori Rubio presents to the | | fluoroscopy suite for fluoroscopically-guided bilateral L4-L5 facet injections as part | | of conservative management for chronic pain with lumbar spondylosis. After informed | | consent was obtained, the patient lay in the prone position on the fluoroscopy table. | | The areas were identified under fluoroscopic guidance. The areas were prepped and | | draped in sterile fashion. A 25-gauge, 1.5-inch needle was inserted into each region | | and approximately 3 mL of buffered 1% lidocaine was infused. Then, a 22-gauge spinal | | needle was inserted into the superior portion of the joints under fluoroscopic guidance. | | Confirmation into the joint space was obtained with infusion of approximately 0.5 mL | | of Isovue contrast which showed outline of the facet joints. Then, a combination of 1 | | mL of 1% lidocaine and 1 mL of 40 mg/mL Kenalog was infused divided between the two | | sides. The patient tolerated the procedure well without complications. Pre- and | | post-procedure blood pressures were stable. The patient was given verbal as well as | | written followup instructions, and the patient reported good improvement in pain | | symptoms post procedure. Prior to the start of the procedure, the following were | | performed and verified, including correct patient identity, correct site/side marked and | | visible, agreement on the procedure to be done, correct patient positioning and an | | accurate procedure consent form. Any safety precautions based on clinical history | | and/or medication use have been addressed. I personally performed the procedure above. | | Dictated Date/Time: 09/22/2011 17:09Transcribed Date/Time: 09/22/2011 | | 18:07Transcriptionist: <Electronically Signed by Shay Dietz MD> 09/27/11 | | 1035 | |atient positioning and an accurate procedure consent form. Any safety precautions based on clinical | |history and/or medication use have been addressed. | | | |I personally performed the procedure above. | | | |Dictated Date/Time: 09/22/2011 17:09 | |Transcribed Date/Time: 09/22/2011 18:07 | |Test Desk Operator: | |<Electronically Signed by Shay Dietz MD> 09/27/11 1035 | + + + +---------+ + + | Performing | Address | City/State/Zipcode | Phone Number | | Organization | | | | + +---------+ + + | [place] | | | | | [place] | | | | + +---------+ + + documented in this encounter Visit Diagnoses Not on filedocumented in this encounter"
--- OUTSIDE RECORDS SUMMARY | ~2019-10-10 | XMS | Encounter Summary ---
Demographics + + + | Address | [address] | | | [place] [address] | + + + | Home Phone [...] Team Providers + +------+ + | Care Setup Operator Name | Role | Phone | + +------+ + | Wendi Aiken | PCP | | + +------+ + Encounter Details +--------+ + + + + | Date | Type | Department | Care Team | Description | +--------+ + + + + | 05/21/ | Orders Only | [facility] | Provider, | | | 2019 | | SYSTEM GENERIC OP | MD [address] | | | | | [address] | [place] | | | | | [address] [place], [place] | [place] [address] | | | | | [address] | | | | | | [phone] | | | +--------+ + + + [...] 2018 | Visit | | DO [address] | | | | | | [place] | | | | | | [id number] | | | | | | | | +--------+---------+ + + + documented as of this encounter Visit Diagnoses Not on filedocumented in this encounter"
--- OUTSIDE RECORDS SUMMARY | ~2019-10-10 | XMS | Encounter Summary ---
Demographics + + + | Address | [address] | | | [place] [address] | + + + | Home Phone [...] Team Providers + +------+ + | Care Chemical Project Engineer Name | Role | Phone | [...] + + | 04/17/ | Telephone | [facility] | Nick Martinez, | Other (Back Brace) | | 2017 | | PHYSIATRY [address] | PA-C [address] | | | | | [place], | [address] [place] | | | | | [place] [address] | [place] [address] | | | | | [phone] | [phone] | | | | | | | [...] [place] | | | | | | [address] | | | | | | | | +--------+---------+ + + + documented as of this encounter Visit Diagnoses Not on filedocumented in this encounter"
--- OUTSIDE RECORDS SUMMARY | ~2019-10-10 | XMS | Encounter Summary ---
Demographics + + + | Address | [address] | | | [place] [address] | + + + | Home Phone | | + + + | Preferred Language | Unknown | + + + | Marital Status | Single | + + + | Evangelical Affiliation | NON | + + + | Race | White | + + + | Ethnic Group | Not or | + + + Author + + + | Author | [facility] | + + + | Organization | [facility] | + + + | Address | Unknown | + + + | Phone | Unavailable | + + + Support + + +---------+ + | Name | Relationship | Address | Phone | + + +---------+ + | Royce Menchaca | ECON | Unknown | | + + +---------+ + Care Team Providers + +------+ + | Care Cloth Examiner Hand Name | Role | Phone | [...] | | 2016 | Encounter | at [facility] [address] | [address] | medical records from | | | | Abbe Soto Mailcode: | [address] [place], | [facility] in | | | | [facility] | [place] [address] | [facility] | | | | [facility], | [phone] | in [facility] | | | | [facility] | | Ant | | | | Floor [place], [place] | | | | | | [address] | | | | | | [phone] | | | +--------+ + + + [...]
--- OUTSIDE RECORDS SUMMARY | ~2019-10-10 | XMS | Encounter Summary ---
Demographics + + + | Address | [address] | | | [place] [address] | + + + | Home Phone [...] Team Providers + +------+ + | Care Coke Worker Name | Role | Phone | [...] | | [address] | [place] [address] | | | | | [place] | [phone] | | | | | [address] | | | | | | [phone] | | | +--------+ + + + [...] [place] | | | | | | [address] | | | | | | | | +--------+---------+ + + + documented as of this encounter Visit Diagnoses Not on filedocumented in this encounter"
--- OUTSIDE RECORDS SUMMARY | ~2019-10-10 | XMS | Encounter Summary ---
Demographics + + + | Address | [address] | | | [place] [address] | + + + | Home Phone [...] Team Providers + +------+ + | Care Sas Bi Developer Name | Role | Phone | [...] + | 10/18/ | Telephone | [facility] [place] | Shay Dietz | Other | | 2012 | | [address]SI[address]RY [address] | [address] | | | | | [place], | [place], [place] | | | | | [place] [address] | [address] | | | | | [phone] | | | +--------+ + + + [...] [place] | | | | | | [address] | | | | | | | | +--------+---------+ + + + documented as of this encounter Visit Diagnoses Not on filedocumented in this encounter"
--- OUTSIDE RECORDS SUMMARY | ~2019-10-10 | XMS | Encounter Summary ---
Demographics + + + | Address | [address] | | | [place] [address] | + + + | Home Phone [...] Team Providers + +------+ + | Care Holistic Pulser Name | Role | Phone | + [...] | | | stenosis | B | [address] | | | | | | [place], [place] | Phone: | | | | | | [address] | [phone] | | | | | | Phone: | Fax: | | | | | | [phone] | [phone] | | | | | | Fax: | | | | | | | [phone] | | + +--------+ + + + + Encounter Details +--------+---------+ + + + | Date | Type | Department | Care Team | Description | +--------+---------+ + + + | 08/16/ Office | [facility] | Denys Sibley, | S/P insertion of | | 2018 | Visit | [facility] | DO [address] | spinal cord | | | | [address] | stimulator (Primary | | | | [address] | [address] | Dx); Spinal stenosis | | | | [place], [place] | | of lumbosacral | | | | [address] | | region; Intractable | | | | [phone] | | back pain; Encounter | | | | | | for long-term use | | | | | | of opiate analgesic; | | | | | [...] disorder; | | | | | | Scoliosis [...] | | | | | | region; Chronic | | | | | | bilateral low back | | | | | | pain with | | | | | | right-sided | | | | | | sciatica; | | | | | | Spondylosis [...] + + + | Blood Pressure | 112/61 | 08/16/2019 3:22 PM | | | | | PDT | | + + + + + | Pulse | 84 | 08/16/2019 3:22 PM | | | | | PDT | | + + + + + | Temperature | - | - | | + + + + + | Respiratory Rate | - | - | | + + + + + | Oxygen Saturation | 99% | 08/16/2019 3:22 PM | | | | | PDT | | + + + + + | Inhaled Oxygen | - | - | | | Concentration | | | | + + + + + | Weight | - | - | | + + + + + | Height | 154.9 cm (5' 1") | 08/16/2019 3:22 PM | | | | | PDT | | + + + + + | Body Mass Index | - | - | | + + + + + documented in this encounter Progress Notes Denys Sibley DO - 08/16/2019 3:20 PM PDTFormatting of this note might be different fr om the original. Patient returns for medication review and adjustment as deemed necessary for medical manage ment and insurance issues A 74-year-old female seen back in the office today for medication evaluation follow-up. Patient status post acute care hospital stay 08/03/2019. Current medication that we give her include a fentanyl patch 25 mcg applied to the anterior chest wall every 72 hours, and Cherry 7.5/325 1 p.o. every 6 hours as needed pain, Robaxin 5 00 mg p.o. every 6 hours as needed muscle spasms. VS Stable; Alert and Oriented X 4 ; B&B Continent ; Sleep OK ; Appetite Good ; Skin Int act Current pain problems are being met with current medication regime including but not limited to analges ,neuronal pathway modulators, and medication for improved sleep and re stfulness Current Outpatient Medications: ALBUTEROL IN, Inhale into [...] Best 1/10 Past Medical History: Diagnosis Date Acid reflux [...] Use of cane as ambulatory aid ROS BP 112/61 | Pulse 84 | Ht 1.549 m (5' 1") | LMP (LMP Unknown) | SpO2 99% | BMI 20.97 kg/m HEENT : Unremarkable, PERRLA, EOMI Heart [...] appropriate Assistive Devices : none LAB REVIEWED Available Admission on 08/03/2019, Discharged on 08/04/2019 Component Date Value Ref Range Status ABO Rh 08/03/2019 B POSITIVE Final Antibody Screen 08/03/2019 NEGATIVE Final BB BAND 08/03/2019 [id number] Final BB BAND 08/03/2019 Testing performed at [facility];[address] [place] [address];[place] [address] Final Glucose, POC 08/03/2019 77 65 - 99 mg/dL Final Glucose, POC 08/03/2019 80 65 - 99 mg/dL Final Glucose, POC 08/03/2019 139* 65 - 99 mg/dL Final Glucose, POC 08/03/2019 108* 65 - 99 mg/dL Final Glucose, POC 08/03/2019 107* 65 - 99 mg/dL Final Glucose, POC 08/03/2019 99 65 - 99 mg/dL Final Glucose, POC 08/03/2019 92 65 - 99 mg/dL Final Preadmit Visit on 07/18/2019 Component Date Value Ref Range Status VENTRICULAR RATE EKG 07/18/2019 60 BPM Final ATRIAL RATE 07/18/2019 60 BPM Final P-R INTERVAL 07/18/2019 160 ms Final QRS DURATION 07/18/2019 80 ms Final Q-T INTERVAL 07/18/2019 430 ms Final Q-T INTERVAL (CORRECTED) 07/18/2019 430 ms Final P WAVE AXIS 07/18/2019 67 degrees Final QRS AXIS 07/18/2019 -16 degrees Final T AXIS 07/18/2019 68 degrees Final INTERPRETATION TEXT 07/18/2019 Final Value:Normal sinus rhythm Cannot rule out Anterior infarct , age undetermined Abnormal ECG Confirmed by Rufino Murray MD ([id number]) on 07/19/2019 10:10:25 PM WBC 07/18/2019 5.40 3.80 - 11.00 K/uL Final RBC 07/18/2019 4.24 3.70 - 5.10 M/uL Final Hemoglobin 07/18/2019 12.6 11.3 - 15.5 g/dL Final Hematocrit 07/18/2019 37.4 34.0 - 46.0 % Final MCV 07/18/2019 88.1 80.0 - 100.0 fl Final MCH 07/18/2019 29.8 27.0 - 34.0 pg Final MCHC 07/18/2019 33.8 32.0 - 35.5 g/dL Final RDW-SD 07/18/2019 42.0 37 - 53 fl Final Platelet Count 07/18/2019 295 150 - 400 K/uL Final MPV 07/18/2019 8.9 fl Final Diff Type 07/18/2019 AUTOMATED Final % Neutrophils 07/18/2019 42.70 % Final % Lymphocytes 07/18/2019 46.37 % Final Monocyte % 07/18/2019 8.43 % Final Eosinophils % 07/18/2019 1.94 % Final Basophils % 07/18/2019 0.56 % Final Neutrophils, Absolute 07/18/2019 2.30 1.90 - 7.40 K/uL Final Absolute Lymphocytes 07/18/2019 2.50 1.00 - 3.90 K/uL Final Absolute Monocytes 07/18/2019 0.46 0.00 - 0.80 K/uL Final Eosinophils, Absolute 07/18/2019 0.11 0.00 - 0.50 K/uL Final Basophils, Absolute 07/18/2019 0.03 0.00 - 0.10 K/uL Final Na 07/18/2019 138 135 - 145 mmol/L Final K 07/18/2019 3.8 3.5 - 4.9 mmol/L Final Cl 07/18/2019 103 99 - 109 mmol/L Final CO2 07/18/2019 31 23 - 32 mmol/L Final Anion Gap 07/18/2019 8 5 - 20 mmol/L Final Glucose 07/18/2019 94 65 - 99 mg/dL Final BUN 07/18/2019 18 8 - 25 mg/dL Final Creatinine 07/18/2019 0.8 0.50 - 1.00 mg/dL Final BUN/Creatinine Ratio 07/18/2019 23 Final Calcium 07/18/2019 8.7 8.5 - 10.5 mg/dL Final Protein, Total 07/18/2019 6.9 6.3 - 8.2 g/dL Final Albumin 07/18/2019 3.7 3.3 - 4.8 g/dL Final Globulin 07/18/2019 3.2 1.3 - 4.9 g/dL Final A/G Ratio 07/18/2019 1.2 1.0 - 2.4 Final BILIRUBIN, TOTAL 07/18/2019 0.2 0.1 - 1.5 mg/dL Final ALK PHOS 07/18/2019 61 35 - 115 U/L Final AST 07/18/2019 17 10 - 45 U/L Final ALT 07/18/2019 20 10 - 65 U/L Final Estimated GFR 07/18/2019 >60 >60 mL/min/1.73m2 Final PTT 07/18/2019 29 23 - 32 seconds Final INR 07/18/2019 1.0 Final ABO Rh 07/18/2019 B POSITIVE Final Antibody Screen 07/18/2019 NEGATIVE Final Antibody Screen 07/18/2019 Testing performed at [facility];[address] [place] [address];[place] [address] Final SOURCE: 07/18/2019 NARES(NOSE) Final Result 07/18/2019 NEGATIVE MRSNEG Final ] XRAYS REVIEWED Available Recent Results (from the past 360 hour(s)) FL C-Arm Impression IMPRESSION: Fluoroscopic service for procedure. Signed by: Shady Wesley Isaac Sign Date/Time: 08/03/2019 11:01 AM IMPRESSION : Chronic pain syndrome, spinal stenosis lumbar region, status post insertion of spinal cord stimulator, intractable back pain, long-term current use of opioid analgesic, c lose compression fracture of L5 vertebra sequela, chronic pain disorder, scoliosis lumbar sp ine, foraminal stenosis of lumbosacral region left L5-S1 PLAN : Patient appears to be at moderate risk category Alternative treatment modalitie s where discussed and offered to patient including but not limited to physical therapy, mass age therapy, acupuncture, pet care attendant, along with recommended psychological counseling , either privately, or in group sessions offered by private care individuals, community serv ices, or episcopal organizations. Appropriate referrals were made at patient and/or provider request Narcan was prescribed, when appropriate, and patient instructed in its use for emergency on ly. Patient was given instructions on proper storage and disposal of medications including but not limited to current government regulations regarding this and or current official gov ernment approved disposal sites. Continue current medication regime with these changes and/ or additions : Patient states her spinal cord stimulator is working well for her. We will decrease fentanyl patch 12 mg applied to the anterior chest wall every 72 hours con tinue with the Cherry 10/325 1 p.o. every 6 hours as needed breakthrough pain and Robaxin 500 mg every 6 hours as needed muscle spasms Patient understands and is in full agreement with the above plan, Will return to office in 4 weeks, [facility] was consulted and appears appropriate, Urine Toxicology screen is pending, Current Morphine milligram equivalents is 70 mg a day Patient is doing very well postop and is looking forward to continuing to reduce her opioid needs FOLLOW UP : As scheduled Greater than 50% of the time of this visit was spent counseling the patient in chronic pain medication management and and coordinating care with other practitioners, testing, and Revi jim labs and radiographic imaging where available. Consideration is also given to contin uing or repeat physical therapy, referrals back to primary care or behavioral health, referr al to interventional pain management or surgical Consultations. Responsible narcotic and sedative use was discussed [...] and complications with the passage of time. penitentiary use is also associated with depressions, and [...] [place] | | | | | | [address] | | | | | | | [...] Chronic pain syndrome | + + | Scoliosis of lumbar spine, unspecified scoliosis type | + + | 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 Spinal stenosis, lumbar region, | | without neurogenic claudication | + + | Facet arthritis of lumbar region Lumbosacral spondylosis without myelopathy | + + | Chronic bilateral low back pain with right-sided sciatica | + + | Spondylosis without myelopathy or radiculopathy, cervical region | + + | Spondylosis without myelopathy or radiculopathy, lumbosacral region | + + | Chronic bilateral low back pain without sciatica | + + | Low back pain without sciatica, unspecified back pain laterality, unspecified | | chronicity | + + | Spondylosis of lumbar region without myelopathy or radiculopathy Lumbosacral | | spondylosis without myelopathy | + + documented in this encounter
--- OUTSIDE RECORDS SUMMARY | ~2019-10-10 | XMS | Encounter Summary ---
Demographics + + + | Address | [address] | | | [place] [address] | + + + | Home Phone | | + + + | Preferred Language | Unknown | + + + | Marital Status | | + + + | Taoist Affiliation | 1013 | + + + | Race | Unknown | + + + | Ethnic Group | Unknown | + + + Author + + + | Author | [facility] | | | and [place]riteshana | + + + | Organization | [facility] | | | [...] Team Providers + +------+ + | Care Cutter Operator Brick Name | Role | Phone | + [...] low back | PA-C [address] [facility] [place] | | | | | pain with | [address] | [address] | | | | | right-sided | [place] | Phone: | | | | | sciatica | [address] | [phone] | | | | | Facet | Phone: | Fax: | | | | | arthritis of | [phone] | [phone] | | | | | lumbar | Fax: | | | | | | region | [phone] | | | | | | Adolescent [...] | | | [place], | [address] | | | | | Trochanteric | [place], | [place], | | | | | bursitis of | PA-C [address] | [place] | | | | | right hip | [address] | [address] | | | | | Procedures | [place] | Phone: | | | | | [place] | [address] | [phone] | | | | | Joint | Phone: | Fax: | | | | | Injection | [phone] | [phone] | | | | | Right | Fax: | | | | | | | [phone] | | +--------+--------+ + + + + [...] + + | 02/08/ | Office | [facility] [place] | Shir[place], | Chronic bilateral | | 2017 | Visit | PH[address]SIATRY [address] | [address] | low back pain with | | | | [place], | [address] [place], | right-sided sciatica | | | | [place] [address] | [place] [address] | (Primary Dx); Facet | | | | [phone] | [phone] | arthritis of lumbar | | | [...] of blood sugars if you are diabetic. terminal superintendent risk can lead to osteoporosis which is [...] of the procedure you must provide a regional company hazmat tanker driver to take you home. For all [...] working more h ours due to the [employer] up. Her pain back is worse [...] has no apparent deficits with short or snf memory. She has appropriate fund of knowledge [...] PT (multiple sessions over the years) and urgent care nurse practitioner. Unfortunately she lola nues to have significant [...] [place] | | | | | | [address] | | | | | | | [...] Bursa Injection Diagnosis: Lumbar Spondylosis and | [facility] | | Trochanteric Bursitis ICD-10 Code M47.816 and ICD-10 [place] | [facility] | | Harshal Rubio presents to [...] + + | Performing | Address | City/State[facility] | Phone Number | | Organization | | | | + + + + + | [facility] | [address] | [place], [place] | [phone] | | [facility] | | [address] | | | - IMAGING | | [...]
--- OUTSIDE RECORDS SUMMARY | ~2019-10-10 | XMS | Encounter Summary ---
Demographics + + + | Address | [address] | | | [place] [address] | + + + | Home Phone | | + + + | Preferred Language | Unknown | + + + | Marital Status | | + + + | Restoration Affiliation | 1013 | + + + | Race | Unknown | + + + | Ethnic Group | Unknown | + + + Author + + + | Author | [facility] | | | and Priteshana | + + + | Organization | [facility] | | | [...] Team Providers + +------+ + | Care Handicapped Teacher Name | Role | Phone | + +------+ + PCP | Unavailable | + +------+ + Encounter Details +--------+ + + + + | Date | Type | Department | Care Team | Description | +--------+ + + + + | 10/06/ | [facility] | [facility] | Robert Perales | | | 2010 | Encounter | MED CTR SLEEP | MD Eric Rivera Bartlett | | | | | CENTER [address] [place] | | | | | [place], [place] | [place] [address] | | | | | [address] | [phone] | | | | | [phone] | | | +--------+ + + + [...] [place] | | | | | | [address] | | | | | | | | +--------+---------+ + + + documented as of this encounter Visit Diagnoses Not on filedocumented in this encounter"
--- OUTSIDE RECORDS SUMMARY | ~2019-10-10 | XMS | Encounter Summary ---
Demographics + + + | Address | [address] | | | [place] [address] | + + + | Home Phone [...] Team Providers + +------+ + | Care Statistical Clerk Name | Role | Phone | + +------+ + PCP | Unavailable | + +------+ + Encounter Details +--------+ + + + + | Date | Type | Department | Care Team | Description | +--------+ + + + + | 12/08/ | Hospital | [facility] | | | | 1994 - | Encounter | MED CTR GENERIC PSY | | | | | | CONV DEPT [address] | | | | 12/18/ | | [place], | | | | 1994 | | [place] [address] | | | | | | [phone] | | | +--------+ + + + [...] [place] | | | | | | [address] | | | | | | | | +--------+---------+ + + + documented as of this encounter Visit Diagnoses Not on filedocumented in this encounter"
--- OUTSIDE RECORDS SUMMARY | ~2019-10-10 | XMS | Encounter Summary ---
Demographics + + + | Address | [address] | | | [place] [address] | + + + | Home Phone | | + + + | Preferred Language | Unknown | + + + | Marital Status | | + + + | Sabianist Affiliation | 1013 | + + + | Race | Unknown | + + + | Ethnic Group | Unknown | + + + Author + + + | Author | [facility] | | | and Priteshana | + + + | Organization | [facility] | | | and [...] Team Providers + +------+ + | Care Student Counselor Name | Role | Phone | + +------+ + | Wendi Aiken | PCP | | + +------+ + Reason for Visit + + + | Reason | Comments | + + + | Results, Imaging | | + + + Encounter Details +--------+ + + + + | Date | Type | Department | Care Team | Description | +--------+ + + + + | 05/09/ | Telephone | [facility] | Nick Martinez, | Results, Imaging | | 2017 | | PHYSIATRY [address] | PA-C [address] | | | | | [place], | [address] [place] | | | | | [place] [address] | [place] [address] | | | | | [phone] | [phone] | | | | | | | [...] [place] | | | | | | [address] | | | | | | | | +--------+---------+ + + + documented as of this encounter Visit Diagnoses Not on filedocumented in this encounter"
--- OUTSIDE RECORDS SUMMARY | ~2019-10-10 | XMS | Encounter Summary ---
Demographics + + + | Address | [address] | | | [place] [address] | + + + | Home Phone [...] Team Providers + +------+ + | Care Usability Architect Name | Role | Phone | + [...] [address] | | | | | [place], | [place], [place] | | | | | [place] [address] | [address] | | | | | [phone] | | | +--------+ + + + [...] [place] | | | | | | [address] | | | | | | | | +--------+---------+ + + + documented as of this encounter Visit Diagnoses Not on filedocumented in this encounter"
--- OUTSIDE RECORDS SUMMARY | ~2019-10-10 | XMS | Encounter Summary ---
Demographics + + + | Address | [address] | | | [place] [address] | + + + | Home Phone | | + + + | Preferred Language | Unknown | + + + | Marital Status | | + + + | Restorationism Affiliation | 1013 | + + + [...] Team Providers + +------+ + | Care Imaging Administrator Name | Role | Phone | + +------+ + | Miquel Calhoun MD | PCP | | + +------+ + Reason for Visit +--------+ + | Reason | Comments | +--------+ + | Other | | +--------+ + Encounter Details +--------+ + + + + | Date | Type | Department | Care Team | Description | +--------+ + + + + | 12/17/ | Telephone | [facility] | Emerita Morrow, | Other | | 2013 | | PHYSIATRY [address] | GROUND SERVICES INSTRUCTOR | | | | | [place], | | | | | | [place] [address] | | | | | | [phone] | | | +--------+ + + + [...] [place] | | | | | | [address] | | | | | | | | +--------+---------+ + + + documented as of this encounter Visit Diagnoses Not on filedocumented in this encounter"
--- OUTSIDE RECORDS SUMMARY | ~2019-10-10 | XMS | Encounter Summary ---
Demographics + + + | Address | [address] | | | [place] [address] | + + + | Home Phone [...] + + + | Author | [facility] | + + + | Organization | [facility] | + + + | Address | Unknown | + + + | Phone | Unavailable | + + + Support + + +---------+ + | Name | Relationship | Address | Phone | + + +---------+ + | Royce Menchaca | ECON | Unknown | | + + +---------+ + Care Team Providers + +------+ + | Care Flower Shop Laborer/Designer Name | Role | Phone | + +------+ + | Miquel Calhoun MD | PCP | | + +------+ + Encounter Details +--------+ + + + + | Date | Type | Department | Care Team | Description | +--------+ + + + + | 11/29/ | [facility] | Khushbu Cortez, | | | 2013 | on | [facility] | CT SCAN SPECIAL PROCEDURES TECHNOLOGIST [facility] [place] | | | | | [address] | [address] | | | | | Alexandria Chamorro | | | | | | [id number] [facility] | | | | | | [facility] | | | | | | [place] [address] | | | | | | [phone] | | | +--------+ + + + [...]
--- OUTSIDE RECORDS SUMMARY | ~2019-10-10 | XMS | Encounter Summary ---
Demographics + + + | Address | [address] | | | [place] [address] | + + + | Home Phone [...] Team Providers + +------+ + | Care Cougar Hunter Name | Role | Phone | + +------+ + | Romy De La Paz MD | PCP | | + +------+ + Encounter Details +--------+ + + + + | Date | Type | Department | Care Team | Description | +--------+ + + + + | 07/18/ | Clinical | [facility] | | Radiculopathy of | | 2019 | Support | NEUROSURGERY [address] | | thoracolumbar | | | | [address] | | region; | | | | [place], [place] | | Postlaminectomy | | | | [address] | | syndrome, thoracic | | | | [phone] | | region | +--------+ + + [...] concerns feel free to call us at [phone]. documented in this encounter Progress Notes Niki [...] that she will on occasion run a [place] ow grade fever and all tests and blood work come back negative infection, patient states she does have a history of UTI's as well. Patient was sent to [facility] for their scheduled pre-admit appointment, anesthesia consult, [...] [place] | | | | | | [id number] | | | | | | | | +--------+---------+ + + + documented as of this encounter Visit Diagnoses + + | Diagnosis | + + | Radiculopathy of thoracolumbar region Thoracic or lumbosacral neuritis or | | radiculitis, unspecified | + + | Postlaminectomy syndrome, thoracic region | + + documented in this encounter
--- OUTSIDE RECORDS SUMMARY | ~2019-10-10 | XMS | Encounter Summary ---
Demographics + + + | Address | [address] | | | [place] [address] | + + + | Home Phone [...] Team Providers + +------+ + | Care Automatic Glove Turner And Former Name | Role | Phone | + +------+ + | Wendi Aiken | PCP | | + +------+ + Encounter Details +--------+ + + + + | Date | Type | Department | Care Team | Description | +--------+ + + + + | 04/07/ | Imaging | [facility] | Provider, | | | 2018 | Exam | MED CTR EXTERNAL | [address] | | | | | IMAGING | [address] | | | | | [phone] | [place] [address] | | +--------+ + + + + [...] | | | | | | [address] [facility] | | | | | | [id number] | | | | | | | [...]
--- OUTSIDE RECORDS SUMMARY | ~2019-10-10 | XMS | Encounter Summary ---
Demographics + + + | Address | [address] | | | [place] [address] | + + + | Home Phone | | + + + | Preferred Language | Unknown | + + + | Marital Status | Single | + + + | Confucianism Affiliation | NON | + + + [...] Team Providers + +------+ + | Care Machine Bobbin Winder Name | Role | Phone | + +------+ + | Miquel Calhoun MD | PCP | | + +------+ + Encounter Details +--------+ + + + + | Date | Type | Department | Care Team | Description | +--------+ + + + + | 09/05/ | Hospital | Registration [facility]OV | | | | 2012 | Encounter | [address] | | | | | | [place], | | | | | | [place] [address] | | | +--------+ + + + [...]
--- OUTSIDE RECORDS SUMMARY | ~2019-10-10 | XMS | Encounter Summary ---
Demographics + + + | Address | [address] | | | [place] [address] | + + + | Home Phone [...] Team Providers + +------+ + | Care Housing Grant Analyst Name | Role | Phone | + +------+ + | Concepción Gallardo NP | PCP | | + +------+ + Encounter Details +--------+ + + + + | Date | Type | Department | Care Team | Description | +--------+ + + + + | 11/26/ | Hospital | [facility] | Conversion | Peripheral vertigo, | | 2016 | Encounter | [facility] MRI [address] | Transaction, | unspecified | | | | [address] | Provider Unknown | laterality; | | | | [place], [place] | | Post-concussion | | | | [address] | (Fax) | vertigo | | | | [phone] | | | +--------+ + + + [...] Note by Rosy Bautista RN at 11/26/15 0096 Author: Rosy Bautista RN Service: (none) Author Type: Registered Nurse Filed: 11/26/15 4099 Date of Service: 11/26/15 2660 Status: Signed Clinical Nurse Leader: Rosy Bautista RN (Registered Nurse) Responded to [...] the er befor e returning home to [place]. Pt reluctant but willing to go to [...] [place] | | | | | | [id number] | | | | | | | [...] | | | Fingerstick | performed at [facility];[address] | | LAB | | | | [address];[place], [place] | | | | | | [address] | | | | + + + [...]
--- OUTSIDE RECORDS SUMMARY | ~2019-10-10 | XMS | Encounter Summary ---
Demographics + + + | Address | [address] | | | [place] [address] | + + + | Home Phone | | + + + | Preferred Language | Unknown | + + + | Marital Status | | + + + | Judaism Affiliation | 1013 | + + + | Race | Unknown | + + + | Ethnic Group | Unknown | + + + Author + + + | Author | [facility] | | | and Priteshana | + + + | Organization | [facility] | | [...] Team Providers + +------+ + | Care Clay House Worker Name | Role | Phone | [...] + + | 07/20/ | Telephone | [facility] | Maykel Hutchins MD | Procedure (Question) | | 2019 | | NEUROSCIENCE CENTER | [address] | | | | | ORTHOPEDIC SPINE | [place] | | | | | [address] [place] | [place] [address] | | | | | [place] | [phone] | | | | | [address] | | | | | | [phone] | | | +--------+ + + + [...] [place] | | | | | | [address] | | | | | | | | +--------+---------+ + + + documented as of this encounter Visit Diagnoses Not on filedocumented in this encounter"
--- OUTSIDE RECORDS SUMMARY | ~2019-10-10 | XMS | Encounter Summary ---
Demographics + + + | Address | [address] | | | [place] [address] | + + + | Home Phone [...] Providers + +------+ + | Care Business Services Tech Name | Role | Phone | [...] + + | 08/31/ | Telephone | [facility] | Alfredo Casillas DO | Triage | | 2019 | | ORTHO [facility]ORTS | [address] | | | | | MEDICINE RADHA | [place] [address] | | | | | [address] | [phone] | | | | | [place], [place] | | | | | | [address] | | | | | | [phone] | | | +--------+ + + + [...] [place] | | | | | | [address] | | | | | | | | +--------+---------+ + + + documented as of this encounter Visit Diagnoses Not on filedocumented in this encounter"
--- OUTSIDE RECORDS SUMMARY | ~2019-10-10 | XMS | Encounter Summary ---
Demographics + + + | Address | [address] | | | [place] [address] | + + + | Home Phone [...] Author + + + | Author | [facility] | + + + | Organization | [facility] | + + + | Address | Unknown | + + + | Phone | Unavailable | + + + Support + + +---------+ + | Name | Relationship | Address | Phone | + + +---------+ + | Royce Menchaca | ECON | Unknown | | + + +---------+ + Care Team Providers + +------+ + | Care Correctional Officer Name | Role | Phone | [...] MD | Other (Records for | | 2016 | | at [facility] [address] | [address] | new pt appt) | | | | [place]ad[place] Brittany Mailcode: | [address] [facility] | | | | | [address] | [place] [address] | | | | | Health and Healing, | [phone] | | | | | [facility] | | | | | | Floor [place], [place] | | | | | | [address] | | | | | | [phone] | | | +--------+ + + + [...]
--- OUTSIDE RECORDS SUMMARY | ~2019-10-10 | XMS | Encounter Summary ---
Demographics + + + | Address | [address] | | | [place] [address] | + + + | Home Phone [...] | Author | [facility] | | | and Priteshana | + + + | Organization | [facility] | | | and [...] Team Providers + +------+ + | Care Barking Machine Feeder Name | Role | Phone | + +------+ + | Wendi Aiken | PCP | | + +------+ + Encounter Details +--------+ + + + + | Date | Type | Department | Care Team | Description | +--------+ + + + + | 12/28/ | Hospital | [facility] | Conversion | Diagnosis unknown | | 2018 | Encounter | CONVERSION [address]P [address] | Transaction, | | | | | [address] | Provider Unknown | | | | | [place], [place] | [phone] | | | | | [address] | | | | | | [phone] | | | +--------+ + + + [...] +---------+--------+ + documented as of this encounter Plan [...] [place] | | | | | | [address] | | | | | | | | +--------+---------+ + + + documented as of this encounter Procedures + +--------+ + + + | Procedure Name | Priori | Date/Time | Associated Diagnosis | Comments | | | ty | | | | + +--------+ + + + | MRI LUMBAR SPINE WO | Routin | 10/19/2018 | | Results for this | | CONTRAST | e | 5:51 PM | | procedure are in the | | | | PST | | results section. | + +--------+ + + + documented in this encounter Results MRI Lumbar Spine wo Contrast (10/19/2018 5:51 PM PST) + + | Specimen | [...] + | Diagnosis | + + | Diagnosis unknown Other unknown and unspecified cause of morbidity or mortality | + + documented in this encounter"
--- OUTSIDE RECORDS SUMMARY | ~2019-10-10 | XMS | Encounter Summary ---
Demographics + + + | Address | [address] | | | [place] [address] | + + + | Home Phone [...] Team Providers + +------+ + | Care Security Installation Sales Technician Name | Role | Phone | + +------+ + | Romy De La Paz MD | PCP | | + +------+ + Encounter Details +--------+ + + + + | Date | Type | Department | Care Team | Description | +--------+ + + + + | 07/18/ | Hospital | [facility] | Maykel Hutchins MD | | | 2019 | Encounter | [facility] | [address] | | | | | [address] | [place], | | | | | [place], [place] | [place] [address] | | | | | [address] | [phone] | | | | | [phone] | | | +--------+ + + + [...] Decreased | | | | | | termination clerk current | Responsiveness (May | | | [...] [place] | | | | | | [address] | | | | | | | [...]
--- OUTSIDE RECORDS SUMMARY | ~2019-10-10 | XMS | Encounter Summary ---
Demographics + + + | Address | [address] | | | [place] [address] | + + + | Home Phone | | + + + | Preferred Language | Unknown | + + + | Marital Status | | + + + | Congregation Affiliation | 1013 | + + + | Race | Unknown | + + + | Ethnic Group | Unknown | + + + Author + + + | Author | [facility] | | | and Priteshana | + + + | Organization | [facility] | | | [...] Providers + +------+ + | Care Business Development Recruiter Name | Role | Phone | + [...] + | 12/19/ | Office | [facility] | Shay Dietz | Chronic low back | | 2013 | Visit | PHYSIATRY [address] | T[address] | pain (Primary Dx); | | | | [place], | [place], [place] | 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 documented in [...] [place] | | | | | | [address] | | | | | | | [...]
--- OUTSIDE RECORDS SUMMARY | ~2019-10-10 | XMS | Encounter Summary ---
Demographics + + + | Address | [address] | | | [place] [address] | + + + | Home Phone | | + + + | Preferred Language | Unknown | + + + | Marital Status | | + + + | Hindu Affiliation | 1013 | + + + [...] Team Providers + +------+ + | Care Entry Level Programmer Name | Role | Phone | + +------+ + | Concepción Gallardo NP | PCP | | + +------+ + Encounter Details +--------+ + + + + | Date | Type | Department | Care Team | Description | +--------+ + + + + | 11/26/ | Hospital | [facility] | Conversion | Peripheral vertigo, | | 2016 | Encounter | [facility] MRI [address] | Transaction, | unspecified | | | | [address] | Provider Unknown | laterality; | | | | [place], [place] | | Post-concussion | | | | [address] | (Fax) | vertigo | | | | [phone] | | | +--------+ + + + [...] Note by Rosy Bautista RN at 11/26/15 1236 Author: Rosy Bautista RN Service: (none) Author Type: Registered Nurse Filed: 11/26/15 4906 Date of Service: 11/26/15 0190 Status: Signed Associate Media Director: Rosy Bautista RN (Registered Nurse) Responded to [...] the er befor e returning home to [place]. Pt reluctant but willing to go to [...] [place] | | | | | | [id number] | | | | | | | [...] | | Fingerstick | performed at [facility];[address] | | LAB | | | | [address];[place], [place] | | | | | | [address] | | | | + + + [...]
--- OUTSIDE RECORDS SUMMARY | ~2019-10-10 | XMS | Encounter Summary ---
Demographics + + + | Address | [address] | | | [place] [address] | + + + | Home Phone | | + + + | Preferred Language | Unknown | + + + | Marital Status | | + + + | Jewish Affiliation | 1013 | + + + | Race | Unknown | + + + | Ethnic Group | Unknown | + + + Author + + + | Author | [facility] | | | and Priteshana | + + + | Organization | [facility] | | | [...] Team Providers + +------+ + | Care Bag Worker Name | Role | Phone | [...] | | [address] | [place] [address] | | | | | [place] | [phone] | | | | | [address] | | | | | | [phone] | | | +--------+ + + + [...] [place] | | | | | | [address] | | | | | | | | +--------+---------+ + + + documented as of this encounter Visit Diagnoses Not on filedocumented in this encounter"
--- OUTSIDE RECORDS SUMMARY | ~2019-10-10 | XMS | Encounter Summary ---
Demographics + + + | Address | [address] | | | [place] [address] | + + + | Home Phone | | + + + | Preferred Language | Unknown | + + + | Marital Status | | + + + | Protestant Affiliation | 1013 | + + + | Race | Unknown | + + + | Ethnic Group | Unknown | + + + Author + + + | Author | [facility] | | | and Priteshana | + + + | Organization | [facility] | | [...] Team Providers + +------+ + | Care Alcohol Law Enforcement Agent Name | Role | Phone | [...] [address] | | | | | [place], | [place], [place] | | | | | [place] [address] | [address] | | | | | [phone] | | | +--------+ + + + [...] [place] | | | | | | [address] | | | | | | | | +--------+---------+ + + + documented as of this encounter Visit Diagnoses Not on filedocumented in this encounter"
--- OUTSIDE RECORDS SUMMARY | ~2019-10-10 | XMS | Encounter Summary ---
Demographics + + + | Address | [address] | | | [place] [address] | + + + | Home Phone [...] Team Providers + +------+ + | Care Office Cleaner Name | Role | Phone | [...] + + | 08/06/ | Telephone | [facility] | Maykel Hutchins MD | Medication Question | | 2019 | | NEUROSCIENCE CENTER | [address] | | | | | ORTHOPEDIC SPINE | [place] | | | | | [address] [place] | [place] [address] | | | | | [place] | [phone] | | | | | [address] | | | | | | [phone] | | | +--------+ + + + [...] [place] | | | | | | [address] | | | | | | | | +--------+---------+ + + + documented as of this encounter Visit Diagnoses Not on filedocumented in this encounter"
--- OUTSIDE RECORDS SUMMARY | ~2019-10-10 | XMS | Encounter Summary ---
Demographics + + + | Address | [address] | | | [place] [address] | + + + | Home Phone | | + + + | Preferred Language | Unknown | + + + | Marital Status | | + + + | Tenriism Affiliation | 1013 | + + + | Race | Unknown | + + + | Ethnic Group | Unknown | + + + Author + + + | Author | [facility] | | | and Priteshana | + + + | Organization | [facility] | | | and [...] Team Providers + +------+ + | Care Telephone Recorder Name | Role | Phone | + +------+ + | No, Physician | PCP | Unavailable | + +------+ + Encounter Details +--------+ + + + + | Date | Type | Department | Care Team | Description | +--------+ + + + + | 03/05/ | Orders Only | [facility] [place] | Emerita Morrow, | Lumbar radiculopathy | | 2013 | | PHYSIATRY [address] | [address] [place] | (Primary Dx) | | | | [place], | | | | | | [place] [address] | | | | | | [phone] | | | +--------+ + + + [...] [place] | | | | | | [address] | | | | | | | | +--------+---------+ + + + documented as of this encounter Results [place] BRITTNEY Lumbar Transforaminal (01/08/2014 1:41 PM PDT) + + | Specimen | + + | | + + + + + | Narrative | Performed At | + + + | 01/08/14 13:40 Transforaminal Epidural Steroid Injection | [facility] | | Diagnosis: Lumbar radiculopathy ICD-9 Code 724.4 Ms. Sheikh | [facility] | | Joanne presents to the fluoroscopy suite for a [facility] | | fluoroscopically-guided left L5-S1 transforaminal [...] with infusion of approximately 1 mL of Isovue contrast | | | which showed epidural [...] + + | Shay Dietz MD - 01/08/2014 1:55 PM PDT 01/08/14 13:40Transforaminal | | Epidural Steroid InjectionDiagnosis: Lumbar radiculopathyICD-9 Code 724.4Ms. Kori | | Joanne presents to the fluoroscopy [...] with infusion of approximately 1 mL of Isovue contrast which showed epidural | | flow [...] + | [address] | [address] | [place] | [phone] | | [facility] | | [address] | | | - IMAGING | | | | + + + + + documented in this encounter Visit Diagnoses + + | Diagnosis | + + | Lumbar radiculopathy - Primary Thoracic or lumbosacral neuritis or radiculitis, | | unspecified | + + documented in this encounter"
--- OUTSIDE RECORDS SUMMARY | ~2019-10-10 | XMS | Encounter Summary ---
Demographics + + + | Address | [address] | | | [place] [address] | + + + | Home Phone [...] Team Providers + +------+ + | Care Division Road Supervisor Name | Role | Phone | [...] 2019 | | [facility] | [address] | [facility] | | | | ORTHOPEDIC SPINE | HAYLEY SANCHEZ, | Healthcare Orders) | | | | [address] [place] | [place] [address] | | | | | [place] | [phone] | | | | | [address] | | | | | | [phone] | | | +--------+ + + + [...] [place] | | | | | | [address] | | | | | | | | +--------+---------+ + + + documented as of this encounter Visit Diagnoses Not on filedocumented in this encounter"
--- OUTSIDE RECORDS SUMMARY | ~2019-10-10 | XMS | Encounter Summary ---
Demographics + + + | Address | [address] | | | [place] [address] | + + + | Home Phone | | + + + | Preferred Language | Unknown | + + + | Marital Status | | + + + | Gnosticist Affiliation | 1013 | + + + [...] Team Providers + +------+ + | Care Court Bailiff Name | Role | Phone | + [...] | | [address] | [place] [address] | | | | | [place] | [phone] | | | | | [address] | | | | | | [phone] | | | +--------+ + + + [...] [place] | | | | | | [id number] | | | | | | | | +--------+---------+ + + + documented as of this encounter Visit Diagnoses Not on filedocumented in this encounter"
--- OUTSIDE RECORDS SUMMARY | ~2019-10-10 | XMS | Encounter Summary ---
Demographics + + + | Address | [address] | | | [place] [address] | + + + | Home Phone [...] Team Providers + +------+ + | Care Outbound Sales Consultant Name | Role | Phone | + +------+ + | No, Physician | PCP | Unavailable | + +------+ + Encounter Details +--------+ + + + + | Date | Type | Department | Care Team | Description | +--------+ + + + + | 01/08/ | Hospital | [facility] | Shay Dietz | Lumbar radiculopathy | | 2013 | Encounter | MED CTR XRAY [address] | [address] | | | | | [place] | [facility] [place] | | | | | [place] [address] | [address] | | | | | [phone] | | | | | | | [place] | | +--------+ + + + [...] [place] | | | | | | [address] | | | | | | | [...] presents to the fluoroscopy suite for a [facility] | | fluoroscopically-guided left L5-S1 [...] [address] | [place] | [phone] | | [facility] | | [address] | | | - IMAGING | | [...]
--- OUTSIDE RECORDS SUMMARY | ~2019-10-10 | XMS | Encounter Summary ---
Demographics + + + | Address | [address] | | | [place] [address] | + + + | Home Phone [...] Team Providers + +------+ + | Care Skill Labor Name | Role | Phone | + [...] [place], [place] | | | | | [place], [place] | [address] | | | | | [address] | | | | | | [phone] | | | +--------+ + + + [...] | | | | | | DRIVE [place], [place] | | | | | | [address] | | | | | | | [...] 0.88 m/s MV | | | Dec Tensas: 3.57 m/s2 MV DecT: 230.60 ms MV E Mark: 0.82 m/s | | | MV E/A Ratio: 0.93 MV PHT: 66.87 ms MVA By PHT: 3.28 cm2 | | | Septal e': 0.05 m/s Septal E/e': 15.05 Lateral e': 0.08 m/s | | | Lateral E/e': 9.70 RAP: 5 mmHg Registered Nurse Nursery: | | | Authenticated by: Nena Franco Report Date/Time: -- | | | [id number]:24 | | + + + + + [...] cmLVPWd: 0.73 cmLVOT Area: 3.03 | | mq2KSHS Diam: 1.96 cm%FS: 33.05 %EF(Teich): 62.03 %ESV(Teich): 29.33 mlLVIDs: | | 2.79 cmSV(Teich): 47.94 mlRVIDd: 2.59 cmLAESV(A-L): 41.85 mlLAESV Index (A-L): | | 26.32 ml/m2LAAs A2C: 12.87 lk1TCRFD A-L A2C: 32.77 mlLALs A2C: 4.29 cmLAAs A4C: | | 16.44 kd7UOXKD A-L A4C: 50.32 mlLALs A4C: 4.55 cmAV maxP.92 mmHgAV meanPG: | | 4.38 mmHgAV Vmax: 1.40 m/Tisha Vmean: 0.99 m/Tisha VTI: 32.81 cmAVA Vmax: 2.11 | | cm2AVA (VTI): 2.40 kp8KMWE (Vmax): 0.00 cm2/m2AVAI (VTI): 0.00 cm2/m2LVOT maxPG: | | 3.84 mmHgLVOT meanP.47 mmHgLVSI Dopp: 49.70 ml/m2LVSV Dopp: 79.02 mlLVOT | | Vmax: 0.98 m/sLVOT Vmean: 0.75 m/sLVOT VTI: 26.05 cmMV A Mark: 0.88 m/sMV Dec | | Tensas: 3.57 m/s2MV DecT: 230.60 msMV E Mark: 0.82 m/sMV E/A Ratio: 0.93MV PHT: | | 66.87 msMVA By PHT: 3.28 sr6Yrgvzn e': 0.05 m/sSeptal E/e': 15.05Lateral e': | | 0.08 m/sLateral E/e': 9.70RAP: 5 mmHg Registered Nurse Nursery:Authenticated by: Nena | | Alsnew londonraReport Date/Time: -- [id number]:11:24 IMPRESSION: 1. This was a technically | [...] A Mark: 0.88 m/s | |MV Dec Tensas: 3.57 m/s2 | |MV DecT: 230.60 ms | |MV E Mark: 0.82 m/s | |MV E/A Ratio: 0.93 | |MV PHT: 66.87 ms | |MVA By PHT: 3.28 cm2 | |Septal e': 0.05 m/s | |Septal E/e': 15.05 | |Lateral e': 0.08 m/s | |Lateral E/e': 9.70 | |RAP: 5 mmHg | | | |Registered Nurse Nursery: | |Authenticated by: Nena Franco | |Report Date/Time: -- [id number]:11:24 | | | |IMPRESSION: | |1. This [...]
--- OUTSIDE RECORDS SUMMARY | ~2019-10-10 | XMS | Encounter Summary ---
Demographics + + + | Address | [address] | | | [place] [address] | + + + | Home Phone [...] Team Providers + +------+ + | Care Accounts Payable Accountant Name | Role | Phone | + [...] + + | 05/01/ | Office | [facility] | Shay Dietz | BACK PAIN, LUMBAR | | 2012 | Visit | PHYSIATRY [address] | [address] | (Primary Dx); DISC | | | | [place], | [place], [place] | DISEASE, LUMBAR; | | | | [place] [address] | [address] | OSTEOARTHRITIS, | | | | [phone] | | LUMBOSACRAL SPINE | +--------+---------+ + [...] - 05/01/2013 11:20 AM [facility] thirty minutes before your scheduled [...] our off ice. Please also provide a tier truck driver to take you home on [...] the most recent injection was performed by tx on 11/09/2012. She reports good relief with [...] [facility] to give [...] | | | | | | [address] [facility] [place] | | | | | | [address] [...]
--- OUTSIDE RECORDS SUMMARY | ~2019-10-10 | XMS | Encounter Summary ---
Demographics + + + | Address | [address] | | | [place] [address] | + + + | Home Phone [...] Team Providers + +------+ + | Care Travel Attendants Name | Role | Phone | + +------+ + | Wendi Aiken | PCP | | + +------+ + Encounter Details +--------+ + + + + | Date | Type | Department | Care Team | Description | +--------+ + + + + | 04/06/ | Hospital | [facility] | Nikc Martinez, | Lumbar radiculopathy | | 2018 | Encounter | MED CTR XRAY [address] | PA-C [address] | | | | | [place] | [address] [place] | | | | | [place] [address] | [place] [address] | | | | | [phone] | [phone] | | | | | | | | | | | | [employer] | | +--------+ + + + [...] [place] | | | | | | [address] | | | | | | | [...] 1:20 | | | | | ONCE, [facility] 04/06/18 at 1330, For 1 | | [...] | | | | | Other, ONCE, [facility] 04/06/18 at 1330, | | PM PDT | | | | | For 1 dose | | | | | | + +-------+ +-------+---+---+ +---+---+ | | | +---+---+ + +-------+ +-------+---+---+ | lidocaine (PF) 1% injection 2 | Given | 04/06/20 | 2 mLs | | | | mL 2 mL, Other, ONCE, [facility] 04/06/18 | | 18 1:20 | | [...] | | (Comment | | Intradermal, ONCE, [facility] 04/06/18 at | | PM PDT | | | ) | | 1330, For 1 dose | | | | | | + +-------+ +-------+---+ + +---+---+ | | | +---+---+ documented in this encounter"
--- OUTSIDE RECORDS SUMMARY | ~2019-10-10 | XMS | Encounter Summary ---
Demographics + + + | Address | [address] | | | [place] [address] | + + + | Home Phone [...] Team Providers + +------+ + | Care Guitar Maker Name | Role | Phone | [...] | | | | | | | [place] [facility] | | | | | | | IMPLNT | | | | | | | NEUROELECT,E | | | | | | | PIDURAL [place] | | | | | | | IMPLANT | | | | | | | NEUROSTIM/RE | | | | | | | CEIVER [place] | | | | | | | [...] + + | 08/03/ | Anesthesia | [facility] | Yojana Arellano CRNA | | | 2019 | Event [facility] | [address] | | | | | OPER[address] | [place] [address] | | | | | [address] | [phone] | | | | | [place], [place] | | | | | | [address] | | | | | | [phone] | | | +--------+ + + + + Anesthesia Record + + + + + | Procedure Name | Responsible | Anesthesia Start | Anesthesia Stop Time | | | Anesthesiologist | Time | | + + + + + | LAMINOTOMY THORACIC | Yojana Arellano CRNA | 08/03/19 09 | 08/03/19 1053 | | / LUMBAR [...] +----+---+ + + | | 0 | [place] | | | | 9 | 43-degrees [...] 1506 by | | eral | Antecubital; [id number] | Mikayla Marcial, | Gamal Whitney, | | IV | catheter system; 20 gauge; 3; | RN | RN | | | removed per policy/procedure; | | | | | 08/04/19; 1506 | | | +--------+ + + + | Airway | Placement Date: 08/03/19; | 08/03/19932 by | 08/03/19 105 by | | | Placement Time: 932 [...] | | | | | | DRIVE [place], [place] | | | | | | [address] | | | | | | | | +--------+---------+ + + + documented as of this encounter Procedures + +--------+ + + + | Procedure Name | Priori | Date/Time | Associated Diagnosis | Comments | | | ty | | | | + +--------+ + + + | ANE AIRWAY NOTE | Routin | 08/03/2019 | | Results for this | | | e | 9:52 AM | | procedure are in the | | | | PDT | | results section. | + +--------+ + + + documented in this encounter Results Airway (08/03/2019 9:52 AM PDT) + + + | Narrative | Performed At | + + + | Yojana Arellano CRNA 08/03/2019 9:53 Anesthesia Airway Placement | | | 08/03/2019 9:33 Preprocedure check: patient identified, oxygen, | | | airway equipment checked, airway assessed and patient reassessment | | | prior to induction Rapid Sequence Induction: no Mask ventilation: | | | easy External maneuver: ramp position Successful technique: Mac | | | Laryngoscope blade size: 3 Airway grade: 1 (Full view of glottis) | | | Other equipment: stylette Attempts: 1 Airway type: endotracheal | | | Size: 7.5 Cuffed: cuffed Route, reference point: right side of mouth | | | Tube depth: 20 cm LDA Airway tube secured with: pink tape. Trauma: | | | none Tube placement verification: bilateral chest rise, equal | | | bilateral breath sounds and carbon dioxide detection Performing | | | provider: Yojana Arellano CRNA Please see intraoperative grid | | | for any additional medication documentation. | | + + + + + | Procedure Note | + + | Yojana Arellano CRNA - 08/03/2019 9:52 AM PDT Anesthesia Airway Izywjwtlb62/4/2019 | | 9:33Preprocedure check: patient identified, oxygen, [...] Administer over 30 Minutes, Prior | | AM PDT | | | | | to [...] | | | | | PRN, Starting Tue08/03/19 at | | AM PDT | | | | | 0945, Anesthesia Intra-op | | | | | | + +-------+ +------+---+---+ +---+---+ | | | +---+---+ + +-------+ +--------+---+---+ | dextrose 50% injection 12.5 g | Given | 08/03/20 | 12.5 g | | | | 12.5 g, Intravenous, ONCE, Tue | | 19 9:30 | | | | | 08/03/19 at 0945, For 1 dose, | | AM PDT | | | | | Pre-op | | | | | | + +-------+ +--------+---+---+ +---+---+ | | | +---+---+ + +-------+ +--------+---+---+ | fentaNYL (PF) injection | Given | 08/03/20 | 50 mcg | | | | Intravenous, PRN, Starting Tue | 19 10:57 | | | | | 08/03/19 at 0931, Anesthesia | | AM PDT | | | | | Intra-op | | | | | | + +-------+ +--------+---+---+ +-------+ +--------+---+---+ | Given | 08/03/20 | 50 mcg | | | | | 19 10:49 | | | | | | AM PDT | | | | +-------+ +--------+---+---+ | Given | 08/03/20 | 50 mcg | | | | | 19 9:55 | | | | | | AM PDT | | | | +-------+ +--------+---+---+ +---+---+ | | | +---+---+ + +-------+ +--------+---+---+ | glycopyrrolate (PRANEETH) | Given | 08/03/20 | 0.4 mg | | | | injection Intravenous, PRN, | | 19 10:31 | | | | | Starting 08/03/19 at 1031, | | AM PDT | | | | | Anesthesia Intra-op | | | | | | + +-------+ +--------+---+---+ +---+---+ | | | +---+---+ + +-------+ +--------+---+---+ | lidocaine (PF) 2% injection | Given | 08/03/20 | 100 mg | | | | Intravenous, PRN, Starting Fri | | 19 9:31 | | | | | 08/03/19 at 0931, Anesthesia | | AM PDT | | | | | Intra-op | | | | | | + +-------+ +--------+---+---+ +---+---+ | | | +---+---+ + +-------+ +------+---+---+ | neostigmine (BLOXIVERZ) 1 mg/mL | Given | 08/03/20 | 3 mg | | | | injection Intravenous, PRN, | | 19 10:31 | | | | | Starting 08/03/19 at 1031, | | AM PDT | | | | | Anesthesia Intra-op | | | | | | + +-------+ +------+---+---+ +---+---+ | | | +---+---+ + +-------+ +------+---+---+ | ondansetron (ZOFRAN) injection | Given | 08/03/20 | 4 mg | | | | Intravenous, PRN, Starting Tue | | 19 9:45 | | | | | 08/03/19 at 0945, Anesthesia | | AM PDT | | | | | Intra-op | | | | | | + +-------+ +------+---+---+ +---+---+ | | | +---+---+ + +---------+ +---------+-------+---+ | phenylephrine (ALBAN-SYNEPHRINE, | New Bag | 08/03/20 | 25 | 0.2 | | | VAZCULEP) 10 mg/mL injection | | 19 9:40 | mcg/min | mL/hr | | | Intravenous, CONTINUOUS PRN, | | AM PDT | | | | | Starting Tue08/03/19 at 0940, | | | | | | | Anesthesia Intra-op | | | | | | + +---------+ +---------+-------+---+ +---+---+ | | | +---+---+ + +-------+ +--------+---+---+ | propofol (DIPRIVAN) injection | Given | 08/03/20 | 100 mg | | | | Intravenous, PRN, Starting Fri | | 19 9:31 | | | | | 08/03/19 at 31, Anesthesia | | AM PDT | | | | | Intra-op | | | | | | + +-------+ +--------+---+---+ +---+---+ | | | +---+---+ + +-------+ +-------+---+---+ | rocuronium (ZEMURON) injection | Given | 08/03/20 | 20 mg | | | | Intravenous, PRN, Starting Fri | | 19 9:40 | | | | | 08/03/19 at 0931, Anesthesia | | AM PDT | | | | | Intra-op | | | | | | + +-------+ +-------+---+---+ +-------+ +-------+---+---+ | Given | 08/03/20 | 10 mg | | | | | 19 9:31 | | | | | | AM PDT | | | | +-------+ +-------+---+---+ +---+---+ | | | +---+---+ + +-------+ +--------+---+---+ | succinylcholine (ANECTINE) | Given | 08/03/20 | 100 mg | | | | injection Intravenous, PRN, | | 19 9:31 | | | | | Starting 08/03/19 at 0931, | | AM PDT | | | | | Anesthesia Intra-op | | | | | | + +-------+ +--------+---+---+ +---+---+ | | | +---+---+ documented in this encounter"
--- OUTSIDE RECORDS SUMMARY | ~2019-10-10 | XMS | Encounter Summary ---
Demographics + + + | Address | [address] | | | [place] [address] | + + + | Home Phone [...] Providers + +------+ + | Care Director Ehs Name | Role | Phone | + [...] as of this encounter Discharge Summaries Interface, Mold Breaker In - 08/03/2006 2:03 AM PDT [id number] ROSANA Suarez [id number] Admission Date: 06/26/2006 Discharge Date: 06/30/2006 Staff [...] up with her primary care doctor in [place] to get lab followup within the next [...] psychiatrist, Dr. Pham; his phone number is [phone]. She is to make a followup appointment with him within the next week. The patient is also to follow up with Dr. Kel Young, he is located as well in [place], [place], and is associated with [facility]. She is to follow up with him for repeat electrolytes including potassium, magnesium, and phosphorus within the next several days. Monroe Disla M.D. Sherita Madrid M.D., M.P.H. / [id number] / [id number] / [phone] / [phone] cc: * Dr. Pham [facility], [place] FAX: [phone] Kel Young M.D. Electronically signed by Sherita Madrid 08-02-2006 11:01:13 AM documented i n this encounter Plan of Treatment Not on filedocumented as of this encounter Visit Diagnoses Not on filedocumented in this encounter"
--- OUTSIDE RECORDS SUMMARY | ~2019-10-10 | XMS | Encounter Summary ---
Demographics + + + | Address | [address] | | | [place] [address] | + + + | Home Phone | | + + + | Preferred Language | Unknown | + + + | Marital Status | | + + + | Yazidism Affiliation | 1013 | + + + [...] Providers + +------+ + | Care Junior Architect Name | Role | Phone | + +------+ + | Wendi Aiken | PCP | | + +------+ + Encounter Details +--------+ + + + + | Date | Type | Department | Care Team | Description | +--------+ + + + + | 02/17/ | Orders Only | [facility] | Sj Valdes MD | Left lumbar | | 2017 | | NEUROSURGERY [address] | [address] | radiculopathy | | | | [address] | [place] [address] | (Primary Dx); DISC | | | | [place], [place] | [phone] | DISEASE, LUMBAR; | | | | [address] | | Back pain, | | | | [phone] | | unspecified back | | | [...] [place] | | | | | | [address] | | | | | | | | +--------+---------+ + + + documented as of this encounter Results XR Scoliosis Entire Spine [...]
--- OUTSIDE RECORDS SUMMARY | ~2019-10-10 | XMS | Encounter Summary ---
Demographics + + + | Address | [address] | | | [place] [address] | + + + | Home Phone [...] + | Author | [facility] | | | and Priteshana | + + + | Organization | [facility] | | | and [...] Team Providers + +------+ + | Care Crna Name | Role | Phone | + [...] Provider Unknown | | | | | [place], [place] | | | | | | [address] | (Fax) | | | | | [phone] | | | +--------+ + + + [...] [place] | | | | | | [address] | | | | | | | [...]
--- OUTSIDE RECORDS SUMMARY | ~2019-10-10 | XMS | Encounter Summary ---
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 Sj Valdes M.D. [address] [place] [address], [address] [place] [address] FAX: NEUROSURGERY HISTORY AND PHYSICAL EXAMINATION CHIEF [...] has no apparent deficits with short or mcfp memory. MOTOR EXAM: (5 IS NORMAL) * Indicates pain limited MUSCLE/ MOVEMENT: RIGHT LEFT Deltoids 5 4+ Biceps 5 5 Triceps 5 5 Wrist Flexion 5 5 Wrist Extension 5 5 Median Intrinsics 5 4 Ulnar Intrinsics 5 4 French Edge Operator Strength 5 4 Hip Flexion 5 4 [...] | | | | | | [address] [place], [place] | | | | | | [address] | | | | | | | [...]
--- OUTSIDE RECORDS SUMMARY | ~2019-10-10 | XMS | Encounter Summary ---
Demographics + + + | Address | [address] | | | [place] [address] | + + + | Home Phone | | + + + | Preferred Language | Unknown | + + + | Marital Status | | + + + | Jewish Affiliation | 1013 | + + + | Race | Unknown | + + + | Ethnic Group | Unknown | + + + Author + + + | Author | [facility] | | | and Priteshana | + + + | Organization | [facility] | | [...] Team Providers + +------+ + | Care Envelope Machine Adjuster Name | Role | Phone | + +------+ + | Wendi Aiken | PCP | | + +------+ + Encounter Details +--------+ + + + + | Date | Type | Department | Care Team | Description | +--------+ + + + + | 04/07/ | Imaging | [facility] | Provider, | | | 2018 | Exam | MED CTR EXTERNAL | [address] | | | | | IMAGING | [place] | | | | | [phone] | [place] [address] | | +--------+ + + + + [...] | | | | | | [facility] [place] | | | | | | [id number] | | | | | | | [...]
--- OUTSIDE RECORDS SUMMARY | ~2019-10-10 | XMS | Encounter Summary ---
Demographics + + + | Address | [address] | | | [place] [address] | + + + | Home Phone [...] Team Providers + +------+ + | Care Viticulture Teacher Name | Role | Phone | + +------+ + PCP | Unavailable | + +------+ + Encounter Details +--------+ + + + + | Date | Type | Department | Care Team | Description | +--------+ + + + + | 07/31/ | Hospital | [facility] | Raul Baca | | | 2004 - | Encounter | [facility] | MD Jorge [address] | | | | | [facility] [address] | [address] [facility], | | | 08/07/ | | [address] [place], [place] | [place] [address] | | | 2004 | | [address] | [phone] | | | | | [phone] | | | +--------+ + + + [...] [place] | | | | | | [address] | | | | | | | | +--------+---------+ + + + documented as of this encounter Visit Diagnoses Not on filedocumented in this encounter"
--- OUTSIDE RECORDS SUMMARY | ~2019-10-10 | XMS | Encounter Summary ---
Demographics + + + | Address | [address] | | | [place] [address] | + + + | Home Phone [...] Team Providers + +------+ + | Care Ingredient Scaler Name | Role | Phone | + [...] [address] | | | | | [place], | [address] [place], | | | | | [place] [address] | [place] [address] | | | | | [phone] | [phone] | | | | | | | [...] [place] | | | | | | [address] | | | | | | | | +--------+---------+ + + + documented as of this encounter Visit Diagnoses Not on filedocumented in this encounter"
--- OUTSIDE RECORDS SUMMARY | ~2019-10-10 | XMS | Encounter Summary ---
Demographics + + + | Address | [address] | | | [place] [address] | + + + | Home Phone [...] Team Providers + +------+ + | Care Returner Name | Role | Phone | + [...] + + | 08/31/ | Telephone | [facility] | Alfredo Casillas DO | Triage | | 2019 | | [facility] | [address] | | | | | MEDICINE RADHA | [place] [address] | | | | | [address] | [phone] | | | | | [place], [place] | | | | | | [address] | | | | | | [phone] | | | +--------+ + + + [...] [place] | | | | | | [address] | | | | | | | | +--------+---------+ + + + documented as of this encounter Visit Diagnoses Not on filedocumented in this encounter"
--- OUTSIDE RECORDS SUMMARY | ~2019-10-10 | XMS | Encounter Summary ---
Demographics + + + | Address | [address] | | | [place] [address] | + + + | Home Phone [...] Team Providers + +------+ + | Care Sort Line Name | Role | Phone | + [...] Required | Rehabilitatio | | Yaneli, | [place] | | | | n | radiculopath | PA-C [address] | [place], | | | | | y Chronic | [address] | [place] [address] | | | | | low back | [place], [place] | Phone: | | | | | pain Facet | [address] | [phone] | | | | | arthritis of | Phone: | Fax: | | | | | lumbar | [phone] | [phone] | | | | | region | Fax: | | | | | | Foraminal | [phone] | | | | | | stenosis [...] + + | 04/17/ | Office | [facility] | Shahnazdanowicz, | Left lumbar | | 2013 | Visit | PHYSIATRY [address] | [address] | radiculopathy | | | | [place], | [facility], | (Primary Dx); | | | | [place] [address] | [place] [address] | Chronic low back | | | | [phone] | [phone] | pain; Facet | | | | [...] of the procedure you must provide a recycler forklift driver truck driver to take you home. For [...] me to refill this prescription as her [facility] [place] care provider will not refill them either. [...] has no apparent deficits with short or termite treater helper memory. She has appropriate fund of knowledge [...] Therapy prescription has been given to the [facility]. 3. I did discussed neuropathic [...] [place] | | | | | | [address] | | | | | | | [...] radiculopathy ICD-9 Code 724.4 Kori Caputo | [facility] | | Joanne presents to the [...] + | [facility] | [address] | [place], [place] | [phone] | | [facility] | | [address] | | | - IMAGING | | [...]
--- OUTSIDE RECORDS SUMMARY | ~2019-10-10 | XMS | Encounter Summary ---
Demographics + + + | Address | [address] | | | [place] [address] | + + + | Home Phone | | + + + | Preferred Language | Unknown | + + + | Marital Status | | + + + | Orthodoxy Affiliation | 1013 | + + + | Race | Unknown | + + + | Ethnic Group | Unknown | + + + Author + + + | Author | [facility] | | | and Priteshana | + + + | Organization | [facility] | | | and [...] Team Providers + +------+ + | Care Ship'S Captain Name | Role | Phone | + +------+ + | Miquel Calhoun MD | PCP | | + +------+ + Encounter Details +--------+ + + + + | Date | Type | Department | Care Team | Description | +--------+ + + + + | 11/14/ | Hospital | [facility] | Earnest Acosta MD | Hypothyroid; History | | 2013 - | Encounter | MEDICAL [facility]ENTER | [address] [facility] | of oral aphthous | | | | CLINICAL DECISION | [address], | ulcers; Anemia, | | | | [address] | [place] [address] | unspecified; | | 2013 | | [place], [place] | [phone] | Aspiration pneumonia | | | | [address] | | ([facility]); COPD | | | | [phone] | | (chronic obstructive | | | | | | pulmonary disease) | | | | | | ([facility]); Generalized | | | | | | [...] 1140 Date of Service: 11/19/131920 Status: Signed Sack Sewer Machine: Fran Barnes MD (Physician) Related Notes: Original Note by Fran Barnes MD (Physician) filed at 11/20/13 1418 Patient ID: Ronald Gutierreztyfawthrop [id number] 68 y.o. 1945 Admit date: 11/14/2013 Discharge [...] Final Testing performed at [facility], [address] [place] [address] BUN Date Value Range Status 11/19/2013 12 8 - 25 mg/dL Final Testing performed at [facility], [address] [place] [address] CREATININE Date Value Range Status 11/19/2013 0.80 0.50 - 1.00 mg/dL Final Testing performed at [facility], [address] [place] [address] BUN/CREAT Date Value Range Status 11/19/2013 15 Final Testing performed at [facility], [address] [place] [address] TOTAL PROTEIN Date Value Range Status 11/17/2013 5.2* 6.3 - 8.2 g/dL Final Testing performed at [address] [address] GLOBULIN Date Value Range Status 11/17/2013 2.1 1.3 - 4.9 g/dL Final Testing performed at [address] [address] TBIL Date Value Range Status 11/17/2013 0.6 0.1 - 1.5 mg/dL Final Testing performed at [address] [address] ALT Date Value Range Status 11/17/2013 21 10 - 65 U/L Final Testing performed at [facility], [address] [place] [address] AST Date Value Range Status 11/17/2013 19 10 - 45 U/L Final Testing performed at [address] [address] SODIUM Date Value Range Status 11/19/2013 133* 135 - 143 mmol/L Final Testing performed at [address] [address] POTASSIUM Date Value Range Status 11/19/2013 3.9 3.5 - 4.9 mmol/L Final Testing performed at [facility], [address] [place] [address] CHLORIDE Date Value Range Status 11/19/2013 101 99 - 109 mmol/L Final Testing performed at [facility], [address] [place] [address] CO2 Date Value Range Status 11/19/2013 24 23 - 32 mmol/L Final Testing performed at [facility], [address] [place] [address] ANION GAP AGAP Date Value Range Status 11/19/2013 12 5 - 20 mmol/L Final Testing performed at [facility], [address] [place] [address] X-ray Lumbar Spine Limited 2-3 Views 11/18/2013 [...] the emergency department, who was admitted to [facility] on November 14, 2013, when she was found to be unresponsive by EMS and thought to be secondary to Flexeril overdose and alcohol intoxication, and alcohol level was more than 300 , and patient was found to be hypotensive. Hence, she was intubated and brought to the [facility] from outside hospital and was started on dopamine and norepinephri ne and Tylenol level was checked, which was 44, for which she was put on acetylcysteine prot ocol and was transferred to medical floor on November 15, 2013, and Dr. Moore from psychia tric service was consulted after patient stabilized and she was taken to [facility] under Dr. Diana's care. 2. Chronic back pain, for which patient was discharged to [facility] on [place] in p.r.n. 3. Aphthous [...] rash noted. No erythema. No pallor. Disposition: Psychiatric in patient psychiatric facility Patient Instructions: Medication [...] file for this visit. Miquel Calhoun MD [address] [place] [id number] In 1 week Signed: FRAN BARNES 11/19/2013 [...] 11/19/132053 Date of Service: 11/19/132029 Status: Signed Sack Sewer Machine: Ruby Chávez RN (Registered Nurse) Pt currently on psychiatric hold; Transport here to take pt to Psychiatric. Pt complains of yessica n; Given Ultram (See MAR) VSS; Afebrile; No SOB. Nurse to nurse given to Psychiatric. Pt dc'd by bebo. Ruby Chávez 11/19/2013 Fran Porter MD - 11/19/2013 3:24 PM PSTFormatting of this note might be different from the or iginal. Progress Notes by Fran Barnes MD at 11/19/131523 Author: Fran Barnes MD Service: Hospitalist Author Type: Physician Filed: 11/19/131535 Date of Service: 11/19/131523 Status: Addendum Sack Sewer Machine: Fran Barnes MD (Physician) Related Notes: Original Note by Fran Barnes MD (Physician) filed at 11/19/13 1535 [facility] Service: Hospitalist Progress Note Ronald Kowthrleighann 68 y.o. [id number] 306/306-2 female MIQUEL Suarez [facility] Day: LOS: 5 days Patient Summary: .A 68-year-old female with past medical history of depression with m ultiple suicide attempts in the past, history of COPD, which she attributes to paint inhalat ion, history of anxiety, restless leg syndrome, GERD, diabetes mellitus type 2, diet control led, hypothyroidism, who was admitted to [facility] on the November 14, when the patient was found to be unresponsive by EMS and thought to be secondary to Fle xeril overdose and alcohol intoxication as her alcohol level was more than 300. The patient was found to be hypertensive, hence she was intubated and brought to the [facility] where she was put on dopamine, norepinephrine, [...] by PCR (TAT 3 hr in house) [[id number]] Collected:11/19/13 0703 Specimen Information:Stool / Stool Updated:11/19/13806 Toxigenic C Difficile NEGATIVE 027 NAP1 BI 027 NAP1 BI PRESUMPTIVE NEGATIVE Magnesium [[id number]] Collected:11/19/13424 MAGNESIUM 2.2 mg/dL Updated:11/19/13806 Phosphorus [[id number]] Collected:11/19/13424 PHOSPHORUS 4.0 mg/dL Updated:11/19/13806 Basic metabolic panel [[id number]] (Abnormal) Collected:11/19/13424 Specimen Information:Blood Updated:11/19/13 0544 SODIUM 133 (L) mmol/L POTASSIUM 3.9 mmol/L CHLORIDE 101 mmol/L CO2 24 mmol/L ANION GAP AGAP 12 mmol/L GLUCOSE 108 (H) mg/dL BUN 12 mg/dL CREATININE 0.80 mg/dL BUN/CREAT 15 CALCIUM 9.2 mg/dL EGFR >60 mL/min/1.73m2 CBC w/auto diff (reflex to manual) [[id number]] (Abnormal) Collected:11/19/13 0425 Specimen Information:Blood Updated:11/19/13 0540 [...] K/uL MORPHOLOGY Fecal occult blood (in house) [[id number]] Collected:11/19/13 0146 Specimen Information:Stool / Stool Updated:11/19/13 0217 Fecal Occult Blood NEGATIVE Urine culture [[id number]] Collected:11/17/13 1013 Specimen Information:Urine / Urine, Catheter Updated:11/18/13 1710 Specimen Description CATHETERIZED URINE Specimen Description Result: Testing performed at [facility];[address] [place] [address] CULTURE NO GROWTH CULTURE Result: Testing performed at [facility], [address] [place] [address] REPORT STATUS 11/18/2013 FINAL Blood culture, 1 of 2 [[id number]] Collected:11/17/13 1042 Specimen Information:Blood / Blood Updated:11/18/13 1451 Specimen Description BLOOD Specimen Description Result: Testing performed at [facility];[address] [place] [address] SPECIAL REQUESTS Result: REPEAT TEST USING ALTERNATE ASSAYED CONTROL MATERIAL SPECIAL REQUESTS Result: Testing performed at [facility];[address] [place] [address] CULTURE NO GROWTH AT THIS TIME CULTURE Result: Testing performed at [facility], [address] [place] [address] REPORT STATUS PENDING Blood culture, 2 of 2 [[id number]] Collected:11/17/13 1050 Specimen Information:Blood / Blood Updated:11/18/13 1451 Specimen Description BLOOD Specimen Description Result: Testing performed at [facility];[address] [place] [address] SPECIAL REQUESTS PICC LINE SPECIAL REQUESTS Result: Testing performed at [facility];[address] [place] [address] CULTURE NO GROWTH AT THIS TIME CULTURE Result: Testing performed at [facility], [address] [place] [address] REPORT STATUS PENDING Sputum culture [[id number]] Collected:11/17/13 1153 Specimen Information:Sputum / Sputum Updated:11/18/13 1428 Specimen Description SPUTUM Specimen Description Result: Testing performed at [facility];[address] [place] [address] GRAM STAIN GREATER THAN 10 WBCS/LPF GRAM STAIN LESS THAN 10 SEC/LPF GRAM STAIN NO ORGANISMS SEEN GRAM STAIN Result: Testing performed at [facility], [address] [place] [address] CULTURE 1+ NORMAL UPPER RESPIRATORY CURTIS CULTURE Result: Testing performed at [facility], [address] [place] [address] REPORT STATUS PENDING Magnesium [[id number]] Collected:11/18/13 0600 Specimen Information:Blood Updated:11/18/13 1104 MAGNESIUM 2.1 mg/dL Phosphorus [[id number]] Collected:11/18/13 0600 Specimen Information:Blood Updated:11/18/13 1104 PHOSPHORUS 3.8 mg/dL Basic metabolic panel [[id number]] (Abnormal) Collected:11/18/13 0600 Specimen Information:Blood Updated:11/18/13 0716 SODIUM 135 mmol/L POTASSIUM 4.2 mmol/L CHLORIDE 104 mmol/L CO2 24 mmol/L ANION GAP AGAP 11 mmol/L GLUCOSE 110 (H) mg/dL BUN 11 mg/dL CREATININE 0.73 mg/dL BUN/CREAT 15 CALCIUM 9.0 mg/dL EGFR >60 mL/min/1.73m2 TSH [[id number]] Collected:11/18/13 0600 Specimen Information:Blood Updated:11/18/13 0713 TSH 4.28 uIU/mL CBC w/auto diff (reflex to manual) [[id number]] (Abnormal) Collected:11/18/13 0600 Specimen Information:Blood Updated:11/18/13 0647 [...] K/uL BASOPHILS ABS 0.0 K/uL Urine culture [[id number]] Collected:11/16/13 0951 Specimen Information:Urine / Urine, Clean Catch Updated:11/17/13 1618 Specimen Description CLEAN CATCH URINE Specimen Description Result: Testing performed at [address] [address] CULTURE NO GROWTH CULTURE Result: Testing performed at [facility], [address] [place] [address] REPORT STATUS 11/17/2013 FINAL Magnesium [[id number]] (Abnormal) Collected:11/16/13 0407 Specimen Information:Blood Updated:11/17/13 1141 MAGNESIUM 1.6 (L) mg/dL Phosphorus [[id number]] (Abnormal) Collected:11/16/13 0407 Specimen Information:Blood Updated:11/17/13 1141 PHOSPHORUS 1.7 (L) mg/dL Iron panel [[id number]] (Abnormal) Collected:11/17/1357 Specimen Information:Blood Updated:11/17/1318 IRON 31 ug/dL TIBC 155 (L) ug/dL IRON % SAT 20 % Vitamin B12 [[id number]] Collected:11/17/1357 Specimen Information:Blood Updated:11/17/1311 VITAMIN B12 417 pg/mL Folate [[id number]] Collected:11/17/1357 Specimen Information:Blood Updated:11/17/13710 FOLATE 17.7 ng/mL Ferritin [[id number]] Collected:11/17/13556 Specimen Information:Blood Updated:11/17/13 0711 FERRITIN 140 ng/mL Comprehensive metabolic panel [[id number]] (Abnormal) Collected:11/17/13 0557 Specimen Information:Blood Updated:11/17/13 0710 [...] mL/min/1.73m2 CBC w/auto diff (reflex to manual) [[id number]] (Abnormal) Collected:11/17/1357 Specimen Information:Blood Updated:11/17/13 0641 WBC [...] Case Management by ANGELO Lujan at 11/19/13 5484 Author: ANGELO Lujan Service: (none) Author Type: Turner Splitter Machine Operator Filed: 11/19/13 1110 Date of Service: 11/19/13 4254 Status: Signed Sack Sewer Machine: ANGELO Lujan (Turner Splitter Machine Operator) CM contacted Crisis Response Unit to inform [facility] that pt is now medically clear for MH eval uation. A DMHP will see pt in the hospital today for eval. CM spoke with IPR MD - he would like to reevaluate pt tomorrow to determine appropriateness for IPR. ANGELO Lujan Analyst Programmer onver hiren Transaction, Provider Unknown - 11/19/2013 12:40 PM PST Progress Notes by Emi Donaldson PT at 11/19/13 1240 Author: mEi Donaldson PT Service: (none) Author Type: Physical Therapist Filed: 11/19/13 1313 Date of Service: 11/19/13 1240 Status: Signed Sack Sewer Machine: Emi Donaldson PT (Physical Therapist) 11/19/13 1240 [...] and I have a bladder appointment at [facility] I need to take care of otherwise [...] Date of Service: 11/19/13 1020 Status: Signed Sack Sewer Machine: Emi Donaldson PT (Physical Therapist) 11/19/13 1020 PT Last Visit PT Received On 11/19/13 Requires PT Follow Up Unavailable (getting bed bath, f/u later today for PT as schedule allows) onver hiren Transaction, Provider Unknown - 11/19/2013 4:29 AM PST Nurse Progress Note by Kala Peña RN at 11/19/13 4679 Author: Kala Peña RN Service: (none) Author Type: Registered Nurse Filed: 11/19/13 4743 Date of Service: 11/19/13 0429 Status: Signed Sack Sewer Machine: Kala Peña, RN (Registered Nurse) Pt slept on and off through night. Medicated for pain and anxiety. Pt given Miralax per prn order and pt reports of constipation unrelieved by lactulose. Large BM resulting. Sitter re manjit at bedside. Will continue to monitor. Fran Porter MD - 11/18/2013 6:08 PM PSTFormatting of this note might be different from the or iginal. Progress Notes by Fran Barnes MD at 11/18/131807 Author: Fran Barnes MD Service: Hospitalist Author Type: Physician Filed: 11/18/131826 Date of Service: 11/18/131807 Status: Signed Sack Sewer Machine: Fran Barnes MD (Physician) [facility] Service: Hospitalist Progress Note Ronald Kowtjanene 68 y.o. [id number] 306/306-2 female [facility] Day: LOS: 4 days Patient Summary: .A 68-year-old female with past medical history of depression with m ultiple suicide attempts in the past, history of COPD, which she attributes to paint inhalat ion, history of anxiety, restless leg syndrome, GERD, diabetes mellitus type 2, diet control led, hypothyroidism, who was admitted to [facility] on the November 14, when the patient was found to be unresponsive by EMS and thought to be secondary to Fle xeril overdose and alcohol intoxication as her alcohol level was more than 300. The patient was found to be hypertensive, hence she was intubated and brought to the [facility] where she was put on dopamine, norepinephrine, [...] mood is better after she talked with Unit Control Worker ,denied any suicidal ideation /thoughts at this moment . Patient c/o generalized weakness and evaluated by PT who recommended SNF and [facility] [place]. She denied any chest pain, cough,sob ,no [...] Procedure Component Value Units Date/Time Urine culture [[id number]] Collected:11/17/13 1013 Specimen Information:Urine / Urine, Catheter Updated:11/18/13 1710 Specimen Description CATHETERIZED URINE Specimen Description Result: Testing performed at [facility];[address] [facility] [address] CULTURE NO GROWTH CULTURE Result: Testing performed at [facility], [address] [place] [address] REPORT STATUS 11/18/2013 FINAL Blood culture, 1 of 2 [[id number]] Collected:11/17/13 1042 Specimen Information:Blood / Blood Updated:11/18/13 1451 Specimen Description BLOOD Specimen Description Result: Testing performed at [facility];[place] [address] SPECIAL REQUESTS Result: REPEAT TEST USING ALTERNATE ASSAYED CONTROL MATERIAL SPECIAL REQUESTS Result: Testing performed at [facility];[address] [place] [address];[place] [address] CULTURE NO GROWTH AT THIS TIME CULTURE Result: Testing performed at [facility], [address] [place] [address] REPORT STATUS PENDING Blood culture, 2 of 2 [[id number]] Collected:11/17/13 1050 Specimen Information:Blood / Blood Updated:11/18/13 1451 Specimen Description BLOOD Specimen Description Result: Testing performed at [facility];[place] [address] SPECIAL REQUESTS PICC LINE SPECIAL REQUESTS Result: Testing performed at [facility];[address] [facility];[place] [address] CULTURE NO GROWTH AT THIS TIME CULTURE Result: Testing performed at [facility], [address] [place] [address] REPORT STATUS PENDING Sputum culture [[id number]] Collected:11/17/13 1153 Specimen Information:Sputum / Sputum Updated:11/18/13 1428 Specimen Description SPUTUM Specimen Description Result: Testing performed at [facility];[address] [place] [address] GRAM STAIN GREATER THAN 10 WBCS/LPF GRAM STAIN LESS THAN 10 SEC/LPF GRAM STAIN NO ORGANISMS SEEN GRAM STAIN Result: Testing performed at [facility], [address] [place] [address] CULTURE 1+ NORMAL UPPER RESPIRATORY CURTIS CULTURE Result: Testing performed at [facility], [address] [place] [address] REPORT STATUS PENDING Magnesium [[id number]] Collected:11/18/13 0600 Specimen Information:Blood Updated:11/18/13 1104 MAGNESIUM 2.1 mg/dL Phosphorus [[id number]] Collected:11/18/13 0600 Specimen Information:Blood Updated:11/18/13 1104 PHOSPHORUS 3.8 mg/dL Basic metabolic panel [[id number]] (Abnormal) Collected:11/18/13 0600 Specimen Information:Blood Updated:11/18/13 0716 SODIUM 135 mmol/L POTASSIUM 4.2 mmol/L CHLORIDE 104 mmol/L CO2 24 mmol/L ANION GAP AGAP 11 mmol/L GLUCOSE 110 (H) mg/dL BUN 11 mg/dL CREATININE 0.73 mg/dL BUN/CREAT 15 CALCIUM 9.0 mg/dL EGFR >60 mL/min/1.73m2 TSH [[id number]] Collected:11/18/13 06 Specimen Information:Blood Updated:11/18/13 0713 TSH 4.28 uIU/mL CBC w/auto diff (reflex to manual) [[id number]] (Abnormal) Collected:11/18/13 06 Specimen Information:Blood Updated:11/18/13 0647 [...] K/uL BASOPHILS ABS 0.0 K/uL Urine culture [[id number]] Collected:11/16/13 0951 Specimen Information:Urine / Urine, Clean Catch Updated:11/17/13 1618 Specimen Description CLEAN CATCH URINE Specimen Description Result: Testing performed at [facility];[address] [place] [address] CULTURE NO GROWTH CULTURE Result: Testing performed at [facility], [address] [place] [address] REPORT STATUS 11/17/2013 FINAL Magnesium [[id number]] (Abnormal) Collected:11/16/13 0407 Specimen Information:Blood Updated:11/17/13 1141 MAGNESIUM 1.6 (L) mg/dL Phosphorus [[id number]] (Abnormal) Collected:11/16/13 0407 Specimen Information:Blood Updated:11/17/13 1141 PHOSPHORUS 1.7 (L) mg/dL Iron panel [[id number]] (Abnormal) Collected:11/17/13556 Specimen Information:Blood Updated:11/17/1318 IRON 31 ug/dL TIBC 155 (L) ug/dL IRON % SAT 20 % Vitamin B12 [[id number]] Collected:11/17/13556 Specimen Information:Blood Updated:11/17/1311 VITAMIN B12 417 pg/mL Folate [[id number]] Collected:11/17/13556 Specimen Information:Blood Updated:11/17/13710 FOLATE 17.7 ng/mL Ferritin [[id number]] Collected:11/17/13556 Specimen Information:Blood Updated:11/17/1311 FERRITIN 140 ng/mL Comprehensive metabolic panel [[id number]] (Abnormal) Collected:11/17/13556 Specimen Information:Blood Updated:11/17/13709 SODIUM 134 [...] mL/min/1.73m2 CBC w/auto diff (reflex to manual) [[id number]] (Abnormal) Collected:11/17/13556 Specimen Information:Blood Updated:11/17/13640 WBC 7.8 [...] K/uL BASOPHILS ABS 0.0 K/uL MORPHOLOGY Potassium [[id number]] Collected:11/16/13 1112 Specimen Information:Blood Updated:11/16/13 1133 POTASSIUM 3.6 mmol/L Sputum culture [[id number]] Collected:11/14/13 2055 Specimen Information:Sputum / Tracheal Aspirate Updated:11/16/13 1018 Specimen Description TRACHEAL ASPIRATE Specimen Description Result: Testing performed at [facility];[address] [place] [address];[place] [address] GRAM STAIN GREATER THAN 10 WBCS/LPF GRAM STAIN LESS THAN 10 SEC/LPF GRAM STAIN 2+ GRAM POSITIVE COCCI GRAM STAIN 1+ GRAM POSITIVE RODS GRAM STAIN Result: Testing performed at [address] [address] CULTURE 2+ NORMAL UPPER RESPIRATORY CURTIS CULTURE Result: Testing performed at [facility], [address] [place] [address] REPORT STATUS 11/16/2013 FINAL Acetaminophen level [[id number]] (Abnormal) Collected:11/16/13 0755 Specimen Information:Blood Updated:11/16/13 0828 ACETAMINOPHEN 3.7 (L) ug/mL CBC w/auto diff (reflex to manual) [[id number]] (Abnormal) Collected:11/16/13 0407 Specimen Information:Blood Updated:11/16/13 0503 [...] BASOPHILS ABS 0.0 K/uL Basic metabolic panel [[id number]] (Abnormal) Collected:11/16/13406 Specimen Information:Blood Updated:11/16/13439 SODIUM 143 mmol/L POTASSIUM 3.1 (L) mmol/L CHLORIDE 109 mmol/L CO2 27 mmol/L ANION GAP AGAP 10 mmol/L GLUCOSE 78 mg/dL BUN 7 (L) mg/dL CREATININE 0.77 mg/dL BUN/CREAT 9 CALCIUM 7.8 (L) mg/dL EGFR >60 mL/min/1.73m2 Acetaminophen level [[id number]] (Abnormal) Collected:11/16/13406 Specimen Information:Blood Updated:11/16/13439 ACETAMINOPHEN 4.5 (L) ug/mL Acetaminophen level [[id number]] (Abnormal) Collected:11/16/136 Specimen Information:Blood Updated:11/16/138 ACETAMINOPHEN 5.2 [...] (none) Author Type: Registered Nurse Filed: 11/18/13 3713 Date of Service: 11/18/131805 Status: Signed Sack Sewer Machine: Donita Hunter RN (Registered Nurse) uke operator at bedside, pt seeming uplifted by conversation with repairer finished metal. PCC in and asked t hat this RN not remove cords, call-light cord and other items nearby pt as executive receptionist had con tacted her regarding this RN's discussion that per policy and patients statements indicating that she intended to cause her self harm this RN felt it would be best to move items that s he could use to harm herself away from her after she finished speaking with the repairer finished metal. Th is RN has increased rounding, line of site at RN station and executive receptionist continues to be in pl suk[place]. Pt overall mood continue to be melancholy and tearful, but has not threatened to do chapito f harm since her discussion with the repairer finished metal. Pt encouraged to express her emotions to staf f. Pt complains of diffuse pain, and desire to go to [place]. Pt medicated for pain per DEC. Wi ll continue to monitor closely.DONITA HUNTER RN onver hiern Transaction, Provider Unknown - 11/18/2013 2:59 PM PST Progress Notes by Franky Mcclain at 11/18/13 9809 Author: Franky Mcclain Service: (none) Author Type: Assistant Community Manager Filed: 11/18/13 0914 Date of Service: 11/18/13 3610 Status: Signed Sack Sewer Machine: Franky Mcclain (Assistant Community Manager) Received pt's request via RN for "someone [...] but now belongs to the "[employer]" and the [facility] to cope. She states that [...] Date of Service: 11/18/13 1208 Status: Signed Sack Sewer Machine: Donita Hunter RN (Registered Nurse) Assistant Community Manager called to be with patient,, executive receptionist at bedside. Pt indicating desire to harm her self. Pt states that she is hopeless and that she wants to . All items that could be used for self harm removed. Will continue to monitor closely.DONITA HUNTER RN onver hiren Transaction, Provider Unknown - 11/18/2013 6:13 AM PST Nurse Progress Note by aKla Peña RN at 11/18/13 0613 Author: Kala Peña RN Service: (none) Author Type: Registered Nurse Filed: 11/18/13 0615 Date of Service: 11/18/13612 Status: Signed Sack Sewer Machine: Kala ePña RN (Registered Nurse) Pt slept on and [...] 11/17/135 Date of Service: 11/17/131823 Status: Signed Sack Sewer Machine: Dick De Santiago RN (Registered Nurse) Pt [...] Date of Service: 11/17/13 1341 Status: Signed Sack Sewer Machine: Sharif Romero (Assistant Community Manager) I visited with Pt to assess her [...] Date of Service: 11/17/13 113 Status: Signed Sack Sewer Machine: Emi Donaldson PT (Physical Therapist) 11/17/13 1133 [...] Notes by Emi Donaldson PT at 11/17/13 3069 Author: Emi Donaldson PT Service: (none) Author Type: Physical Therapist Filed: 11/17/13 8003 Date of Service: 11/17/13 1133 Status: Signed Sack Sewer Machine: Emi Donaldson PT (Physical Therapist) 11/17/13 1133 [...] Recommendations SNF Equipment Recommended (pending improvement, lift surveillance specialist c/s) Prior Function Level of [place] Modified independent with functional mobility;Modified independent wi [...] Barnes MD at 11/17/13 1002 Author: Fran aBrnes MD Service: Hospitalist Author Type: Physician Filed: 11/17/13 1746 Date of Service: 11/17/13 1002 Status: Signed Sack Sewer Machine: Fran Barnes MD (Physician) Related Notes: Original Note by Fran Barnes MD (Physician) filed at 11/17/13 1016 [facility] Service: Hospitalist Progress Note Ronald Kowthrleighann 68 y.o. [id number] 306/306-2 female [facility] Day: LOS: 3 days Patient Summary: .A 68-year-old female with past medical history of depression with m ultiple suicide attempts in the past, history of COPD, which she attributes to paint inhalat ion, history of anxiety, restless leg syndrome, GERD, diabetes mellitus type 2, diet control led, hypothyroidism, who was admitted to [facility] on the November 14 014, when the patient was found to be unresponsive by EMS and thought to be secondary to Fle xeril overdose and alcohol intoxication as her alcohol level was more than 300. The patient was found to be hypertensive, hence she was intubated and brought to the [facility] where she was put on dopamine, norepinephrine, [...] commands . I received her records from [facility]. The patient's 2 sons live in [place], and she does not know the phone [...] Procedure Component Value Units Date/Time Iron panel [[id number]] (Abnormal) Collected:11/17/13556 Specimen Information:Blood Updated:11/17/13717 IRON 31 ug/dL TIBC 155 (L) ug/dL IRON % SAT 20 % Vitamin B12 [[id number]] Collected:11/17/13556 Specimen Information:Blood Updated:11/17/13710 VITAMIN B12 417 pg/mL Folate [[id number]] Collected:11/17/13556 Specimen Information:Blood Updated:11/17/13710 FOLATE 17.7 ng/mL Ferritin [[id number]] Collected:11/17/13556 Specimen Information:Blood Updated:11/17/13710 FERRITIN 140 ng/mL Comprehensive metabolic panel [[id number]] (Abnormal) Collected:11/17/13556 Specimen Information:Blood Updated:11/17/13709 SODIUM 134 [...] mL/min/1.73m2 CBC w/auto diff (reflex to manual) [[id number]] (Abnormal) Collected:11/17/13556 Specimen Information:Blood Updated:11/17/13 06 WBC [...] BASOPHILS ABS 0.0 K/uL MORPHOLOGY Urine culture [[id number]] Collected:11/16/13 0951 Specimen Information:Urine / Urine, Clean Catch Updated:11/16/13 1144 Potassium [[id number]] Collected:11/16/13 1112 Specimen Information:Blood Updated:11/16/13 1133 POTASSIUM 3.6 mmol/L Sputum culture [[id number]] Collected:11/14/13 2055 Specimen Information:Sputum / Tracheal Aspirate Updated:11/16/13 1018 Specimen Description TRACHEAL ASPIRATE Specimen Description Result: Testing performed at [facility];[address] [place] [address];[place] [address] GRAM STAIN GREATER THAN 10 WBCS/LPF GRAM STAIN LESS THAN 10 SEC/LPF GRAM STAIN 2+ GRAM POSITIVE COCCI GRAM STAIN 1+ GRAM POSITIVE RODS GRAM STAIN Result: Testing performed at [address] [address] CULTURE 2+ NORMAL UPPER RESPIRATORY CURTIS CULTURE Result: Testing performed at [facility], [address] [place] [address] REPORT STATUS 11/16/2013 FINAL Acetaminophen level [[id number]] (Abnormal) Collected:11/16/13 0755 Specimen Information:Blood Updated:11/16/13 0828 ACETAMINOPHEN 3.7 (L) ug/mL Magnesium [[id number]] Collected:11/16/13 0407 Specimen Information:Blood Updated:11/16/13 0800 Phosphorus [[id number]] Collected:11/16/13 0407 Specimen Information:Blood Updated:11/16/13 0800 CBC w/auto diff (reflex to manual) [[id number]] (Abnormal) Collected:11/16/13 0407 Specimen Information:Blood Updated:11/16/13 0503 [...] BASOPHILS ABS 0.0 K/uL Basic metabolic panel [[id number]] (Abnormal) Collected:11/16/13 0407 Specimen Information:Blood Updated:11/16/13 0440 SODIUM 143 mmol/L POTASSIUM 3.1 (L) mmol/L CHLORIDE 109 mmol/L CO2 27 mmol/L ANION GAP AGAP 10 mmol/L GLUCOSE 78 mg/dL BUN 7 (L) mg/dL CREATININE 0.77 mg/dL BUN/CREAT 9 CALCIUM 7.8 (L) mg/dL EGFR >60 mL/min/1.73m2 Acetaminophen level [[id number]] (Abnormal) Collected:11/16/13 0407 Specimen Information:Blood Updated:11/16/13 0440 ACETAMINOPHEN 4.5 (L) ug/mL Acetaminophen level [[id number]] (Abnormal) Collected:11/16/13 0036 Specimen Information:Blood Updated:11/16/13 0058 ACETAMINOPHEN 5.2 (L) ug/mL Troponin I [[id number]] (Abnormal) Collected:11/15/13 1602 Specimen Information:Blood Updated:11/15/13 1651 TROPONIN I 0.208 (H) ng/mL CK MB [[id number]] Collected:11/15/13 1602 MMB 3.4 ng/mL Updated:11/15/13 1651 CK-MB Index 2.4 CPK [[id number]] Collected:11/15/13 1602 Specimen Information:Blood Updated:11/15/13 1651 CPK 140 U/L Acetaminophen level [[id number]] Collected:11/15/13 1602 Specimen Information:Blood Updated:11/15/13 1651 ACETAMINOPHEN 10.0 ug/mL POCT glucose [[id number]] (Abnormal) Collected:11/14/13 1920 GLUCOSE,POC SCREEN 154 (H) mg/dL Updated:11/15/13 1317 Acetaminophen level [[id number]] (Abnormal) Collected:11/15/13 1132 Specimen Information:Blood Updated:11/15/13 1207 ACETAMINOPHEN 5.5 (L) ug/mL Basic metabolic panel [[id number]] (Abnormal) Collected:11/15/13 1132 Specimen Information:Blood Updated:11/15/13 1207 SODIUM 144 (H) mmol/L POTASSIUM 3.9 mmol/L CHLORIDE 114 (H) mmol/L CO2 20 (L) mmol/L ANION GAP AGAP 14 mmol/L GLUCOSE 153 (H) mg/dL BUN 8 mg/dL CREATININE 0.92 mg/dL BUN/CREAT 9 CALCIUM 7.4 (L) mg/dL EGFR >60 mL/min/1.73m2 CPK [[id number]] Collected:11/15/13850 Specimen Information:Blood Updated:11/15/1325 CPK 75 U/L Troponin I [[id number]] (Abnormal) Collected:11/15/13850 Specimen Information:Blood Updated:11/15/1325 TROPONIN I 0.325 (H) ng/mL CK MB [[id number]] Collected:11/15/13850 MMB 3.4 ng/mL Updated:11/15/13 0925 CK-MB Index 4.5 Acetaminophen level [[id number]] (Abnormal) Collected:11/15/13850 Specimen Information:Blood Updated:11/15/13 0925 ACETAMINOPHEN 6.3 (L) ug/mL POCT glucose [[id number]] Collected:11/15/13 0033 GLUCOSE,POC SCREEN 86 mg/dL Updated:11/15/13 0759 Osmolality [[id number]] (Abnormal) Collected:11/15/13 0408 Specimen Information:Blood Updated:11/15/13 0701 OSMOLALITY,SERUM 316 (H) mOsm/kg Lactic acid, plasma [[id number]] (Abnormal) Collected:11/15/13 0532 Specimen Information:Blood Updated:11/15/13 0617 LACTIC ACID 2.5 (H) mmol/L CBC w/auto diff (reflex to manual) [[id number]] (Abnormal) Collected:11/15/138 Specimen Information:Blood Updated:11/15/13 0530 WBC [...] BASOPHILS ABS 0.0 K/uL MORPHOLOGY Troponin I [[id number]] (Abnormal) Collected:11/15/13407 Specimen Information:Blood Updated:11/15/13522 TROPONIN I 0.647 (HH) ng/mL CK MB [[id number]] Collected:11/15/13407 MMB 3.3 ng/mL Updated:11/15/13522 CK-MB Index 5.9 CPK [[id number]] Collected:11/15/13407 Specimen Information:Blood Updated:11/15/13521 CPK 56 U/L Comprehensive metabolic panel [[id number]] (Abnormal) Collected:11/15/13407 Specimen Information:Blood Updated:11/15/13521 SODIUM 148 [...] 61 U/L EGFR >60 mL/min/1.73m2 Acetaminophen level [[id number]] (Abnormal) Collected:11/15/13407 Specimen Information:Blood Updated:11/15/13521 ACETAMINOPHEN 9.9 (L) ug/mL POC arterial CG4+ [[id number]] (Abnormal) Collected:11/14/13 2347 pH, Art 7.141 (LL) Updated:11/14/13 2351 POC PCO2 40 mmHg POC p02 283 (H) mmHg POC LACTATE 3.7 (H) mmol/L POC HCO3 14 (L) mmol/L POC TCO2 15 (L) mEq/L POC BASE DEFICIT 15 (H) mmol/L POC S02 100 (H) % POC FIO2 70 % POC COMMENTS Tidal Volume = 500 Lactic acid, plasma [[id number]] (Abnormal) Collected:11/14/132116 Specimen Information:Blood Updated:11/14/132155 LACTIC ACID 3.4 (H) mmol/L Basic metabolic panel [[id number]] (Abnormal) Collected:11/14/132112 Specimen Information:Blood Updated:11/14/132149 SODIUM 143 mmol/L POTASSIUM 3.0 (L) mmol/L CHLORIDE 114 (H) mmol/L CO2 16 (L) mmol/L ANION GAP AGAP 16 mmol/L GLUCOSE 187 (H) mg/dL BUN 10 mg/dL CREATININE 0.79 mg/dL BUN/CREAT 13 CALCIUM 6.5 (L) mg/dL EGFR >60 mL/min/1.73m2 Phosphorus [[id number]] Collected:11/14/132112 Specimen Information:Blood Updated:11/14/132149 PHOSPHORUS 2.4 mg/dL Magnesium [[id number]] Collected:11/14/132112 Specimen Information:Blood Updated:11/14/132149 MAGNESIUM 1.7 mg/dL Hepatic function panel [[id number]] (Abnormal) Collected:11/14/132112 TOTAL PROTEIN 5.6 (L) g/dL Updated:11/14/132149 Albumin 3.1 (L) g/dL TBIL 0.2 mg/dL BILI, DIRECT <0.1 mg/dL ALK PHOS 76 U/L AST 75 (H) U/L ALT 67 (H) U/L Acetaminophen level [[id number]] (Abnormal) Collected:11/14/132112 Specimen Information:Blood Updated:11/14/132149 ACETAMINOPHEN 44.4 (H) ug/mL Ionized calcium,to [facility] [[id number]] (Abnormal) Collected:11/14/132114 Specimen Information:Blood Updated:11/14/132145 CA++ 0.99 (L) mmol/L pH 7.179 (L) aPTT [[id number]] Collected:11/14/132112 Specimen Information:Blood Updated:11/14/132144 APTT 26 seconds Protime-INR [[id number]] Collected:11/14/132112 Specimen Information:Blood Updated:11/14/132144 INR 1.0 MRSA by PCR [[id number]] Collected:11/14/131929 Specimen Information:Nasopharyngeal / Nasopharyngeal Culture Updated:11/14/132130 SOURCE NARES(NOSE) RESULT NEGATIVE CBC w/auto diff (reflex to manual) [[id number]] (Abnormal) Collected:11/14/132112 Specimen Information:Blood Updated:11/14/132130 WBC 12.2 [...] ABS 0.0 K/uL Rapid drug screen, urine [[id number]] (Abnormal) Collected:11/14/131929 Specimen Information:Urine / Urine, Catheter Updated:11/14/132036 THC NEGATIVE PCP NEGATIVE COCAINE NEGATIVE METHAMPHETAMINES NEGATIVE OPIATES PRESUMPTIVE POSITIVE (A) AMPHETAMINE NEGATIVE BENZODIAZEPINE NEGATIVE TRICYCLIC ANTIDEPRESS PRESUMPTIVE POSITIVE (A) METHADONE NEGATIVE BARBITUATES NEGATIVE Urine microscopic only [[id number]] (Abnormal) Collected:11/14/131929 WBC 1-5 /hpf Updated:11/14/132035 RBC 0-2 /hpf EPITHELIAL NONE SEEN /lpf BACTERIA TRACE (A) Urinalysis (reflex to micro) [[id number]] (Abnormal) Collected:11/14/131929 Specimen Information:Urine / Urine, Catheter Updated:11/14/132035 COLOR UA OTHER CLARITY CLEAR Specific [place], UA 1.004 LEUKOCYTE ESTERASE TRACE (A) NITRITE [...] to patient,doing exam and revising records from [facility]. FRAN BARNES MD 11/17/2013 onversion Transactio n, Provider Unknown - 11/17/2013 4:27 AM PST Nurse Progress Note by Jazzy Patel RN at 11/17/137 Author: Jazzy Patel RN Service: (none) Author Type: Registered Nurse Filed: 11/17/13 0429 Date of Service: 11/17/13426 Status: Signed Sack Sewer Machine: Jazzy Patel RN (Registered Nurse) Pt currently sleeping. 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 Unable to score CIWA a s patient [...] Notes by Fran Barnes MD at 11/16/13 9302 Author: Fran Barnes MD Service: Hospitalist Author Type: Physician Filed: 11/17/13 1746 Date of Service: 11/16/13 9750 Status: Signed Sack Sewer Machine: Fran Barnes MD (Physician) Related Notes: Original Note by Fran Barnes MD (Physician) filed at 11/16/13 4026 [facility] Service: Hospitalist Progress Note Ronald Castañeda 68 y.o. [id number] 323/323-1 female MIQUEL Suarez [facility] Day: LOS: 2 days Patient Summary: A 68-year-old female with past medical history of depression and his tory of suicidal attempts, COPD per patient but there is no documentation of it, who took an overdose of Flexeril and EMS found her in the bathtub with clothes on, and the patient was taken to [facility] ER where she was found to be unresponsive and hypertensive, an d was intubated and sent to [facility] for further workup and treatment. The patient [...] as tricyclic positive. She was put on CITN protocol for alcohol withdrawal. Today when I [...] atient told that she lives alone in [place]. She [facility]. She [...] Procedure Component Value Units Date/Time Urine culture [[id number]] Collected:11/16/13 0951 Specimen Information:Urine / Urine, Clean Catch Updated:11/16/13 1144 Potassium [[id number]] Collected:11/16/13 1112 Specimen Information:Blood Updated:11/16/13 1133 POTASSIUM 3.6 mmol/L Sputum culture [[id number]] Collected:11/14/13 2055 Specimen Information:Sputum / Tracheal Aspirate Updated:11/16/13 1018 Specimen Description TRACHEAL ASPIRATE Specimen Description Result: Testing performed at [facility];[address] [place] [address];[place] [address] GRAM STAIN GREATER THAN 10 WBCS/LPF GRAM STAIN LESS THAN 10 SEC/LPF GRAM STAIN 2+ GRAM POSITIVE COCCI GRAM STAIN 1+ GRAM POSITIVE RODS GRAM STAIN Result: Testing performed at [facility], [address] [place] [address] CULTURE 2+ NORMAL UPPER RESPIRATORY CURTIS CULTURE Result: Testing performed at [facility], [address] [place] [address] REPORT STATUS 11/16/2013 FINAL Acetaminophen level [[id number]] (Abnormal) Collected:11/16/13 0755 Specimen Information:Blood Updated:11/16/13 0828 ACETAMINOPHEN 3.7 (L) ug/mL Magnesium [[id number]] Collected:11/16/13406 Specimen Information:Blood Updated:11/16/13 0800 Phosphorus [[id number]] Collected:11/16/13406 Specimen Information:Blood Updated:11/16/13 0800 CBC w/auto diff (reflex to manual) [[id number]] (Abnormal) Collected:11/16/13406 Specimen Information:Blood Updated:11/16/13 0503 WBC [...] BASOPHILS ABS 0.0 K/uL Basic metabolic panel [[id number]] (Abnormal) Collected:11/16/13406 Specimen Information:Blood Updated:11/16/13 044 SODIUM 143 mmol/L POTASSIUM 3.1 (L) mmol/L CHLORIDE 109 mmol/L CO2 27 mmol/L ANION GAP AGAP 10 mmol/L GLUCOSE 78 mg/dL BUN 7 (L) mg/dL CREATININE 0.77 mg/dL BUN/CREAT 9 CALCIUM 7.8 (L) mg/dL EGFR >60 mL/min/1.73m2 Acetaminophen level [[id number]] (Abnormal) Collected:11/16/13406 Specimen Information:Blood Updated:11/16/13 0440 ACETAMINOPHEN 4.5 (L) ug/mL Acetaminophen level [[id number]] (Abnormal) Collected:11/16/13 0036 Specimen Information:Blood Updated:11/16/13 0058 ACETAMINOPHEN 5.2 (L) ug/mL Troponin I [[id number]] (Abnormal) Collected:11/15/13 1602 Specimen Information:Blood Updated:11/15/13 1651 TROPONIN I 0.208 (H) ng/mL CK MB [[id number]] Collected:11/15/13 1602 MMB 3.4 ng/mL Updated:11/15/13 165 CK-MB Index 2.4 CPK [[id number]] Collected:11/15/13 160 Specimen Information:Blood Updated:11/15/13 1651 CPK 140 U/L Acetaminophen level [[id number]] Collected:11/15/13 160 Specimen Information:Blood Updated:11/15/13 1651 ACETAMINOPHEN 10.0 ug/mL POCT glucose [[id number]] (Abnormal) Collected:11/14/13 1920 GLUCOSE,POC SCREEN 154 (H) mg/dL Updated:11/15/13 1317 Acetaminophen level [[id number]] (Abnormal) Collected:11/15/13 1132 Specimen Information:Blood Updated:11/15/13 1207 ACETAMINOPHEN 5.5 (L) ug/mL Basic metabolic panel [[id number]] (Abnormal) Collected:11/15/13 1132 Specimen Information:Blood Updated:11/15/13 1207 SODIUM 144 (H) mmol/L POTASSIUM 3.9 mmol/L CHLORIDE 114 (H) mmol/L CO2 20 (L) mmol/L ANION GAP AGAP 14 mmol/L GLUCOSE 153 (H) mg/dL BUN 8 mg/dL CREATININE 0.92 mg/dL BUN/CREAT 9 CALCIUM 7.4 (L) mg/dL EGFR >60 mL/min/1.73m2 CPK [[id number]] Collected:11/15/1351 Specimen Information:Blood Updated:11/15/13 0925 CPK 75 U/L Troponin I [[id number]] (Abnormal) Collected:11/15/13850 Specimen Information:Blood Updated:11/15/13 0925 TROPONIN I 0.325 (H) ng/mL CK MB [[id number]] Collected:11/15/13850 MMB 3.4 ng/mL Updated:11/15/13 0925 CK-MB Index 4.5 Acetaminophen level [[id number]] (Abnormal) Collected:11/15/13 0851 Specimen Information:Blood Updated:11/15/13 0925 ACETAMINOPHEN 6.3 (L) ug/mL POCT glucose [[id number]] Collected:11/15/13 0033 GLUCOSE,POC SCREEN 86 mg/dL Updated:11/15/13 0759 Osmolality [[id number]] (Abnormal) Collected:11/15/13407 Specimen Information:Blood Updated:11/15/13 0701 OSMOLALITY,SERUM 316 (H) mOsm/kg Lactic acid, plasma [[id number]] (Abnormal) Collected:11/15/13 0532 Specimen Information:Blood Updated:11/15/13 0617 LACTIC ACID 2.5 (H) mmol/L CBC w/auto diff (reflex to manual) [[id number]] (Abnormal) Collected:11/15/13407 Specimen Information:Blood Updated:11/15/13529 WBC 5.5 [...] BASOPHILS ABS 0.0 K/uL MORPHOLOGY Troponin I [[id number]] (Abnormal) Collected:11/15/13407 Specimen Information:Blood Updated:11/15/13522 TROPONIN I 0.647 (HH) ng/mL CK MB [[id number]] Collected:11/15/13407 MMB 3.3 ng/mL Updated:11/15/13522 CK-MB Index 5.9 CPK [[id number]] Collected:11/15/13407 Specimen Information:Blood Updated:11/15/13521 CPK 56 U/L Comprehensive metabolic panel [[id number]] (Abnormal) Collected:11/15/13407 Specimen Information:Blood Updated:11/15/13521 SODIUM 148 [...] 61 U/L EGFR >60 mL/min/1.73m2 Acetaminophen level [[id number]] (Abnormal) Collected:11/15/13 0408 Specimen Information:Blood Updated:11/15/13 0522 ACETAMINOPHEN 9.9 (L) ug/mL POC arterial CG4+ [[id number]] (Abnormal) Collected:11/14/132346 pH, Art 7.141 (LL) Updated:11/14/13 2351 POC PCO2 40 mmHg POC p02 283 (H) mmHg POC LACTATE 3.7 (H) mmol/L POC HCO3 14 (L) mmol/L POC TCO2 15 (L) mEq/L POC BASE DEFICIT 15 (H) mmol/L POC S02 100 (H) % POC FIO2 70 % POC COMMENTS Tidal Volume = 500 Lactic acid, plasma [[id number]] (Abnormal) Collected:11/14/132116 Specimen Information:Blood Updated:11/14/132155 LACTIC ACID 3.4 (H) mmol/L Basic metabolic panel [[id number]] (Abnormal) Collected:11/14/132112 Specimen Information:Blood Updated:11/14/132149 SODIUM 143 mmol/L POTASSIUM 3.0 (L) mmol/L CHLORIDE 114 (H) mmol/L CO2 16 (L) mmol/L ANION GAP AGAP 16 mmol/L GLUCOSE 187 (H) mg/dL BUN 10 mg/dL CREATININE 0.79 mg/dL BUN/CREAT 13 CALCIUM 6.5 (L) mg/dL EGFR >60 mL/min/1.73m2 Phosphorus [[id number]] Collected:11/14/132112 Specimen Information:Blood Updated:11/14/132149 PHOSPHORUS 2.4 mg/dL Magnesium [[id number]] Collected:11/14/132112 Specimen Information:Blood Updated:11/14/132149 MAGNESIUM 1.7 mg/dL Hepatic function panel [[id number]] (Abnormal) Collected:11/14/132112 TOTAL PROTEIN 5.6 (L) g/dL Updated:11/14/132149 Albumin 3.1 (L) g/dL TBIL 0.2 mg/dL BILI, DIRECT <0.1 mg/dL ALK PHOS 76 U/L AST 75 (H) U/L ALT 67 (H) U/L Acetaminophen level [[id number]] (Abnormal) Collected:11/14/132112 Specimen Information:Blood Updated:11/14/132149 ACETAMINOPHEN 44.4 (H) ug/mL Ionized calcium,to [facility] [[id number]] (Abnormal) Collected:11/14/132114 Specimen Information:Blood Updated:11/14/132145 CA++ 0.99 (L) mmol/L pH 7.179 (L) aPTT [[id number]] Collected:11/14/132112 Specimen Information:Blood Updated:11/14/132144 APTT 26 seconds Protime-INR [[id number]] Collected:11/14/132112 Specimen Information:Blood Updated:11/14/132144 INR 1.0 MRSA by PCR [[id number]] Collected:11/14/131929 Specimen Information:Nasopharyngeal / Nasopharyngeal Culture Updated:11/14/132130 SOURCE NARES(NOSE) RESULT NEGATIVE CBC w/auto diff (reflex to manual) [[id number]] (Abnormal) Collected:11/14/132112 Specimen Information:Blood Updated:11/14/132130 WBC 12.2 [...] ABS 0.0 K/uL Rapid drug screen, urine [[id number]] (Abnormal) Collected:11/14/131929 Specimen Information:Urine / Urine, Catheter Updated:11/14/132036 THC NEGATIVE PCP NEGATIVE COCAINE NEGATIVE METHAMPHETAMINES NEGATIVE OPIATES PRESUMPTIVE POSITIVE (A) AMPHETAMINE NEGATIVE BENZODIAZEPINE NEGATIVE TRICYCLIC ANTIDEPRESS PRESUMPTIVE POSITIVE (A) METHADONE NEGATIVE BARBITUATES NEGATIVE Urine microscopic only [[id number]] (Abnormal) Collected:11/14/131929 WBC 1-5 /hpf Updated:11/14/132035 RBC 0-2 /hpf EPITHELIAL NONE SEEN /lpf BACTERIA TRACE (A) Urinalysis (reflex to micro) [[id number]] (Abnormal) Collected:11/14/131929 Specimen Information:Urine / Urine, Catheter Updated:11/14/132035 COLOR UA OTHER CLARITY CLEAR Specific [place], UA 1.004 LEUKOCYTE ESTERASE TRACE (A) NITRITE [...] 1423 Date of Service: 11/16/131421 Status: Signed Sack Sewer Machine: Kassidy Perez RN (Registered Nurse) Pt beginning [...] Date of Service: 11/16/13 1140 Status: Signed Sack Sewer Machine: Jana Taylor Pt given to Kassidy MORAN on 3OP. Pt transferred via wheel chair. onver hiren Transaction, Provider Unknown - 11/16/2013 1:17 AM PST Nurse Progress Note by Sheryl Tomas RN at 11/16/13116 Author: Sheryl Tomas RN Service: (none) Author Type: Registered Nurse Filed: 11/16/13116 Date of Service: 11/16/13116 Status: Signed Sack Sewer Machine: Sheryl Tomas RN (Registered Nurse) Stopped Acetylcysteine drip per order. Sheryl Tomas RN iotr hesham Jana Osbornanne - 11/15/2013 4:28 PM PST Progress Notes by Jana Norris DO at 11/15/131627 Author: Jana Norris DO Service: (none) Author Type: Pens And Pencils Repairer Filed: 11/15/131628 Date of Service: 11/15/131627 Status: Signed Sack Sewer Machine: Jana Norris DO (Pens And Pencils Repairer) Pt was extubated this am and has [...] 11/15/131408 Date of Service: 11/15/131407 Status: Signed Sack Sewer Machine: Kourtney Aldana RN (Registered Nurse) Discussed psych consult with Dr. Norris. Received verbal order for psych consult. Notifi wilbert Flores RN, she will arrange for psych consult. When pt is stable for discharge, will need to call [facility] : [phone] to evalulate before disch arging pt. KOURTNEY ALDANA 11/15/2013 2:09 PM onver hiren Transaction, Provider Unknown - 11/15/2013 9:32 AM PST Progress Notes by Nick Jeffries RN at 11/15/13931 Author: Nick Jeffries RN Service: Wound/Ostomy Care Author Type: Registered Nurse Filed: 11/15/1334 Date of Service: 11/15/13931 Status: Signed Sack Sewer Machine: Nick Jeffries RN (Registered Nurse) Pt seen [...] 0557 Date of Service: 11/15/1357 Status: Signed Sack Sewer Machine: Mat Perez RPH (Pharmacist) Clinical Pharmacy Note: Renal Monitoring Ronald Koonel 68 y.o. female Ht Readings from Last 1 Encounters: No data found for Ht Wt Readings from Last 1 Encounters: 11/15/13 69.1 kg (152 lb 5.4 oz) CREATININE Date Value Range Status 11/15/2013 0.69 0.50 - 1.00 mg/dL Final Testing performed at [facility];[address] [place] [address];[place] [address] Creatinine clearance cannot be calculated - Unknown [...] 11/15/131951 Date of Service: 11/14/131856 Status: Signed Sack Sewer Machine: Roseline Sanon RN (Registered Nurse) Pt arrived [facility] from [facility]. No report called from [place] a nd minimal report received Via [facility]. Pt transferred to bed, ventilator applied to exist ing ETT via RT. Obvious smell of ETOH emitting from PT. No cough, gag or corneals noted. maintenance technician 3rd shift RN Gayle in room to assume care [...] DEWEY | | | | | | [id number] | | | | | | | [...] | EXTERNAL LAB | | performed at [facility];[address] [place] [address];[place] [address] 027 NAP1 BI | | | 027 NAP1 BI PRESUMPTIVE NEGATIVE | | | Detection of 027 NAP1 BI strains of C. difficile is presumptive and | | | for epidemiological purposes and not intended to guide or monitor | | | treatment for C. difficile infections. Testing performed at [facility];[address] | | [facility];[place] [address] | | + + + + +---------+ [...] | | | | | [place] [address] | | | | + + + + + + | RED CELL | 3.85Comment: Testing | 3.70 - 5.10 | EXTERNAL | | | COUNT | performed at [facility], [address] | M/uL | LAB | | | | [address], | | | | | | [place] [address] | | | | + + + + + + | Hgb | 10.7 (L)Comment: Testing | 11.3 - 15.5 | EXTERNAL | | | | performed at [facility], [address] | g/dL | LAB | | | | [address], | | | | | | [place] [address] | | | | + + + + + + | Hematocrit, | 32.8 (L)Comment: Testing | 34.0 - 46.0 % | EXTERNAL | | | POC | performed at [facility], [address] | | LAB | | | | [address], | | | | | | [place] [address] | | | | + + + + + + | MCV | 85.2Comment: Testing | 80.0 - 100.0 fl | EXTERNAL | | | | performed at [facility], [address] | | LAB | | | | [address], | | | | | | [place] [address] | | | | + + + + + + | MCH | 27.8Comment: Testing | 27.0 - 34.0 pg | EXTERNAL | | | | performed at [facility], [address] | | LAB | | | | [address], | | | | | | [place] [address] | | | | + + + + + + | MCHC | 32.6Comment: Testing | 32.0 - 35.5 | EXTERNAL | | | | performed at [facility], [address] | g/dL | LAB | | | | [address], | | | | | | [place] [address] | | | | + + + + + + | RDW-CV | 38.1Comment: Testing | 37 - 53 fl | EXTERNAL | | | | performed at [facility], [address] | | LAB | | | | [address], | | | | | | [place] [address] | | | | + + + + + + | Platelet | 222Comment: Testing | 150 - 400 K/uL | EXTERNAL | | | Count | performed at [facility], [address] | | LAB | | | Plasma | [address], | | | | | | [place] [address] | | | | + + + + + + | MPV | 7.8Comment: Testing | fl | EXTERNAL | | | | performed at [facility], [address] | | LAB | | | | [address], | | | | | | [place] [address] | | | | + + + + + + | Differentia | AUTOMATEDComment: | | EXTERNAL | | | l Type | Testing performed at | | LAB | | | | [facility], [address] | | | | | | [address], [place], [place] | | | | | | [address] | | | | + + + [...] | | | | | [place] [address] | | | | + + + [...] | | | | | [place] [address] | | | | + + + [...] | | | | | [place] [address] | | | | + + + + + + | K | 3.9Comment: Testing | 3.5 - 4.9 | EXTERNAL | | | | performed at [facility], [address] | mmol/L | LAB | | | | [address], | | | | | | [place] [address] | | | | + + + + + + | Cl | 101Comment: Testing | 99 - 109 mmol/L | EXTERNAL | | | | performed at [facility], [address] | | LAB | | | | [address], | | | | | | [place] [address] | | | | + + + + + + | CO2 | 24Comment: Testing | 23 - 32 mmol/L | EXTERNAL | | | | performed at [facility], [address] | | LAB | | | | [address], | | | | | | [place] [address] | | | | + + + + + + | Anion Gap | 12Comment: Testing | 5 - 20 mmol/L | EXTERNAL | | | | performed at [facility], [address] | | LAB | | | | [address], | | | | | | [place] [address] | | | | + + + + + + | Glucose, | 108 (H)Comment: Testing | 65 - 99 mg/dL | EXTERNAL | | | Fasting | performed at [facility], [address] | | LAB | | | | [address], | | | | | | [place] [address] | | | | + + + + + + | BUN | 12Comment: Testing | 8 - 25 mg/dL | EXTERNAL | | | | performed at [facility], [address] | | LAB | | | | [address], | | | | | | [place] [address] | | | | + + + + + + | Creatinine | 0.80Comment: Testing | 0.50 - 1.00 | EXTERNAL | | | | performed at [facility], [address] | mg/dL | LAB | | | | [address], | | | | | | [place] [address] | | | | + + + + + + | BUN/Creatin | 15Comment: Testing | | EXTERNAL | | | ine Ratio | performed at [facility], [address] | | LAB | | | | [address], | | | | | | [place] [address] | | | | + + + + + + | Calcium | 9.2Comment: Testing | 8.5 - 10.2 | EXTERNAL | | | | performed at [facility], [address] | mg/dL | LAB | | | | [address], | | | | | | [place] [address] | | | | + + + [...] | | | | | [place] [address] | | | | + + + [...] | EXTERNAL LAB | | performed at [facility];[address] [facility];[place] [address] | | + + + + +---------+ [...] | | | | | [place] [address] | | | | + + + + + + | RED CELL | 3.77Comment: Testing | 3.70 - 5.10 | EXTERNAL | | | COUNT | performed at [facility], [address] | M/uL | LAB | | | | [address], | | | | | | [place] [address] | | | | + + + + + + | Hgb | 10.8 (L)Comment: Testing | 11.3 - 15.5 | EXTERNAL | | | | performed at [facility], [address] | g/dL | LAB | | | | [address], | | | | | | [place] [address] | | | | + + + + + + | Hematocrit, | 31.9 (L)Comment: Testing | 34.0 - 46.0 % | EXTERNAL | | | POC | performed at [facility], [address] | | LAB | | | | [address], | | | | | | [place] [address] | | | | + + + + + + | MCV | 84.8Comment: Testing | 80.0 - 100.0 fl | EXTERNAL | | | | performed at [facility], [address] | | LAB | | | | [address], | | | | | | [place] [address] | | | | + + + + + + | MCH | 28.8Comment: Testing | 27.0 - 34.0 pg | EXTERNAL | | | | performed at [facility], [address] | | LAB | | | | [address], | | | | | | [place] [address] | | | | + + + + + + | MCHC | 33.9Comment: Testing | 32.0 - 35.5 | EXTERNAL | | | | performed at [facility], [address] | g/dL | LAB | | | | [address], | | | | | | [place] [address] | | | | + + + + + + | RDW-CV | 37.6Comment: Testing | 37 - 53 fl | EXTERNAL | | | | performed at [facility], [address] | | LAB | | | | [address], | | | | | | [place] [address] | | | | + + + + + + | Platelet | 183Comment: Testing | 150 - 400 K/uL | EXTERNAL | | | Count | performed at [facility], [address] | | LAB | | | Plasma | [address], | | | | | | [place] [address] | | | | + + + + + + | MPV | 7.9Comment: Testing | fl | EXTERNAL | | | | performed at [facility], [address] | | LAB | | | | [address], | | | | | | [place] [address] | | | | + + + + + + | Differentia | AUTOMATEDComment: | | EXTERNAL | | | l Type | Testing performed at | | LAB | | | | [facility], [address] | | | | | | [place] | | | | | | [address] | | | | + + + [...] + + + + | TSH | 4.28Comment: Testing | 0.45 - 5.10 | EXTERNAL | | | | performed at [facility], [address] | uIU/mL | LAB | | | | [address], | | | | | | [place] [address] | | | | + + + [...] | LAB | | | | [address] [facility], | | | | | | [place] [address] | | | | + + + [...] | | | | | [place] [address] | | | | + + + [...] | | | | | [place] [address] | | | | + + + + + + | K | 4.2Comment: Testing | 3.5 - 4.9 | EXTERNAL | | | | performed at [facility], [address] | mmol/L | LAB | | | | [address], | | | | | | [place] [address] | | | | + + + + + + | Cl | 104Comment: Testing | 99 - 109 mmol/L | EXTERNAL | | | | performed at [facility], [address] | | LAB | | | | [address], | | | | | | [place] [address] | | | | + + + + + + | CO2 | 24Comment: Testing | 23 - 32 mmol/L | EXTERNAL | | | | performed at [facility], [address] | | LAB | | | | [address], | | | | | | [place] [address] | | | | + + + + + + | Anion Gap | 11Comment: Testing | 5 - 20 mmol/L | EXTERNAL | | | | performed at [facility], [address] | | LAB | | | | [address], | | | | | | [place] [address] | | | | + + + + + + | Glucose, | 110 (H)Comment: Testing | 65 - 99 mg/dL | EXTERNAL | | | Fasting | performed at [facility], [address] | | LAB | | | | [address], | | | | | | [place] [address] | | | | + + + + + + | BUN | 11Comment: Testing | 8 - 25 mg/dL | EXTERNAL | | | | performed at [facility], [address] | | LAB | | | | [address], | | | | | | [place] [address] | | | | + + + + + + | Creatinine | 0.73Comment: Testing | 0.50 - 1.00 | EXTERNAL | | | | performed at [facility], [address] | mg/dL | LAB | | | | [address], | | | | | | [place] [address] | | | | + + + + + + | BUN/Creatin | 15Comment: Testing | | EXTERNAL | | | ine Ratio | performed at [facility], [address] | | LAB | | | | [address], | | | | | | [place] [address] | | | | + + + + + + | Calcium | 9.0Comment: Testing | 8.5 - 10.2 | EXTERNAL | | | | performed at [facility], [address] | mg/dL | LAB | | | | [address], | | | | | | [place] [address] | | | | + + + [...] | | | | | | [address], | | | | | | [place] [address] | | | | + + + [...] EXTERNAL LAB | | Testing performed at [facility];[address] | | | [facility];[place] [address] GRAM STAIN | | | GREATER THAN 10 WBCS/LPF | | | LESS THAN 10 SEC/LPF | | | NO ORGANISMS SEEN | | | Testing performed at [facility], [facility] [address], | | | [place] [address] CULTURE | | | 3+ ZITA GLABRATAAbnormal | | | 2+ ZITA DUBLINIENSISAbnormal | | | 2+ KLEBSIELLA OXYTOCAAbnormal | | | 1+ NORMAL UPPER RESPIRATORY | | | CURTIS Testing | | | performed at [facility], [facility] [address] [facility], [place] [address] | | | REPORT STATUS 11/23/2013 FINAL [...] EXTERNAL LAB | | Testing performed at [facility];[address] | | | [facility];[place] [address] SPECIAL REQUESTS | | | PICC LINE | | | Testing performed at [facility];[address] [place] [address] CULTURE | | | NO GROWTH 6 DAYS | | | Testing performed at [facility], [address] | | | [place] [address] REPORT STATUS | | | 11/23/2013 FINAL [...] EXTERNAL LAB | | Testing performed at [facility];[address] | | | [address];[place] [address] SPECIAL REQUESTS | | | REPEAT TEST USING ALTERNATE ASSAYED CONTROL MATERIAL | | | Testing performed at [facility];[address] | | | [address];[place] [address] CULTURE | | | NO GROWTH 6 DAYS | | | Testing performed at [facility], [address] [place], | | | [place] [address] REPORT STATUS 11/23/2013 | | | FINAL [...] | Testing performed at | | | [facility];[address] [facility];[place] [address] CULTURE | | | NO GROWTH | | | Testing performed at [facility], [address] [facility], | | | [place] [address] REPORT STATUS | | | 11/18/2013 FINAL [...] | | | | | [place] [address] | | | | + + + + + + | TIBC | 155 (L)Comment: Testing | 260 - 490 ug/dL | EXTERNAL | | | | performed at [facility], [address] | | LAB | | | | [address], | | | | | | [place] [address] | | | | + + + + + + | Iron | 20Comment: Testing | 15 - 50 % | EXTERNAL | | | Saturation | performed at [facility], [address] | | LAB | | | | [address], | | | | | | [place] [address] | | | | + + + [...] [address], | | | | | | [place] [address] | | | | + + + + + + | RED CELL | 3.51 (L)Comment: Testing | 3.70 - 5.10 | EXTERNAL | | | COUNT | performed at [facility], [address] | M/uL | LAB | | | | [address], | | | | | | [place] [address] | | | | + + + + + + | Hgb | 9.6 (L)Comment: Testing | 11.3 - 15.5 | EXTERNAL | | | | performed at [facility], [address] | g/dL | LAB | | | | [address], | | | | | | [place] [address] | | | | + + + + + + | Hematocrit, | 29.5 (L)Comment: Testing | 34.0 - 46.0 % | EXTERNAL | | | POC | performed at [facility], [address] | | LAB | | | | [address], | | | | | | [place] [address] | | | | + + + + + + | MCV | 84.3Comment: Testing | 80.0 - 100.0 fl | EXTERNAL | | | | performed at [facility], [address] | | LAB | | | | [address], | | | | | | [place] [address] | | | | + + + + + + | MCH | 27.5Comment: Testing | 27.0 - 34.0 pg | EXTERNAL | | | | performed at [facility], [address] | | LAB | | | | [address], | | | | | | [place] [address] | | | | + + + + + + | MCHC | 32.6Comment: Testing | 32.0 - 35.5 | EXTERNAL | | | | performed at [facility], [address] | g/dL | LAB | | | | [address], | | | | | | [place] [address] | | | | + + + + + + | RDW-CV | 36.3 (L)Comment: Testing | 37 - 53 fl | EXTERNAL | | | | performed at [facility], [address] | | LAB | | | | [address], | | | | | | [place] [address] | | | | + + + + + + | Platelet | 151Comment: Testing | 150 - 400 K/uL | EXTERNAL | | | Count | performed at [facility], [address] | | LAB | | | Plasma | [address], | | | | | | [place] [address] | | | | + + + + + + | MPV | 7.9Comment: Testing | fl | EXTERNAL | | | | performed at [facility], [address] | | LAB | | | | [address], | | | | | | [place] [address] | | | | + + + + + + | Differentia | AUTOMATEDComment: | | EXTERNAL | | | l Type | Testing performed at | | LAB | | | | [facility], [address] | | | | | | [place] | | | | | | [address] | | | | + + + [...] | | | | | [place] [address] | | | | + + + [...] | | | | | [place] [address] | | | | + + + [...] | | | | | [place] [address] | | | | + + + [...] | | | | | [place] [address] | | | | + + + + + + | K | 3.8Comment: Testing | 3.5 - 4.9 | EXTERNAL | | | | performed at [facility], [address] | mmol/L | LAB | | | | [address], | | | | | | [place] [address] | | | | + + + + + + | Cl | 103Comment: Testing | 99 - 109 mmol/L | EXTERNAL | | | | performed at [facility], [address] | | LAB | | | | [address], | | | | | | [place] [address] | | | | + + + + + + | CO2 | 28Comment: Testing | 23 - 32 mmol/L | EXTERNAL | | | | performed at [facility], [address] | | LAB | | | | [address], | | | | | | [place] [address] | | | | + + + + + + | Anion Gap | 7Comment: Testing | 5 - 20 mmol/L | EXTERNAL | | | | performed at [facility], [address] | | LAB | | | | [address], | | | | | | [place] [address] | | | | + + + + + + | Glucose, | 131 (H)Comment: Testing | 65 - 99 mg/dL | EXTERNAL | | | Fasting | performed at [facility], [address] | | LAB | | | | [address], | | | | | | [place] [address] | | | | + + + + + + | BUN | 7 (L)Comment: Testing | 8 - 25 mg/dL | EXTERNAL | | | | performed at [facility], [address] | | LAB | | | | [address], | | | | | | [place] [address] | | | | + + + + + + | Creatinine | 0.61Comment: Testing | 0.50 - 1.00 | EXTERNAL | | | | performed at [facility], [address] | mg/dL | LAB | | | | [address], | | | | | | [place] [address] | | | | + + + + + + | BUN/Creatin | 11Comment: Testing | | EXTERNAL | | | ine Ratio | performed at [facility], [address] | | LAB | | | | [address], | | | | | | [place] [address] | | | | + + + + + + | Calcium | 8.5Comment: Testing | 8.5 - 10.2 | EXTERNAL | | | | performed at [facility], [address] | mg/dL | LAB | | | | [address], | | | | | | [place] [address] | | | | + + + + + + | Protein, | 5.2 (L)Comment: Testing | 6.3 - 8.2 g/dL | EXTERNAL | | | Total | performed at [facility], [address] | | LAB | | | | [address], | | | | | | [place] [address] | | | | + + + + + + | Albumin | 3.1 (L)Comment: Testing | 3.3 - 4.8 g/dL | EXTERNAL | | | | performed at [facility], [address] | | LAB | | | | [address], | | | | | | [place] [address] | | | | + + + + + + | Globulin | 2.1Comment: Testing | 1.3 - 4.9 g/dL | EXTERNAL | | | | performed at [facility], [address] | | LAB | | | | [address], | | | | | | [place] [address] | | | | + + + + + + | A/G Ratio | 1.5Comment: Testing | 1.0 - 2.4 | EXTERNAL | | | | performed at [facility], [address] | | LAB | | | | [address], | | | | | | [place] [address] | | | | + + + + + + | Bilirubin | 0.6Comment: Testing | 0.1 - 1.5 mg/dL | EXTERNAL | | | Total | performed at [facility], [address] | | LAB | | | | [address], | | | | | | [place] [address] | | | | + + + + + + | ALP, | 48Comment: Testing | 35 - 115 U/L | EXTERNAL | | | External | performed at [facility], [address] | | LAB | | | | [address], | | | | | | [place] [address] | | | | + + + + + + | AST | 19Comment: Testing | 10 - 45 U/L | EXTERNAL | | | | performed at [facility], [address] | | LAB | | | | [address], | | | | | | [place] [address] | | | | + + + + + + | ALT | 21Comment: Testing | 10 - 65 U/L | EXTERNAL | | | | performed at [facility], [address] | | LAB | | | | [address], | | | | | | [place] [address] | | | | + + + [...] | | | | | | [address], | | | | | | [place] [address] | | | | + + + [...] | | | | performed at [facility];[address] | mmol/L | LAB | | | | [address];[place], [place] | | | | | | [address] | | | | + + + [...] | Testing performed at | | | [facility];[address] [facility];[place] [address] CULTURE | | | NO GROWTH | | | Testing performed at [facility], [address] [facility], | | | [place] [address] REPORT STATUS | | | 11/17/2013 FINAL [...] | | EN LEVEL | performed at [facility];[address] | ug/mL | LAB | | | | [address];[place], [place] | | | | | | [address] | | | | + + + [...] | RONALD GUTIERREZTYFAWTHROP XR CHEST 1 VIEW 11/16/2013 6:21 AM [...] | | | | | [place] [address] | | | | + + + + + + | RED CELL | 3.54 (L)Comment: Testing | 3.70 - 5.10 | EXTERNAL | | | COUNT | performed at [facility], [address] | M/uL | LAB | | | | [address], | | | | | | [place] [address] | | | | + + + + + + | Hgb | 10.1 (L)Comment: Testing | 11.3 - 15.5 | EXTERNAL | | | | performed at [facility], [address] | g/dL | LAB | | | | [address], | | | | | | [place] [address] | | | | + + + + + + | Hematocrit, | 29.5 (L)Comment: Testing | 34.0 - 46.0 % | EXTERNAL | | | POC | performed at [facility], [address] | | LAB | | | | [address], | | | | | | [place] [address] | | | | + + + + + + | MCV | 83.4Comment: Testing | 80.0 - 100.0 fl | EXTERNAL | | | | performed at [facility], [address] | | LAB | | | | [address], | | | | | | [place] [address] | | | | + + + + + + | MCH | 28.7Comment: Testing | 27.0 - 34.0 pg | EXTERNAL | | | | performed at [facility], [address] | | LAB | | | | [address], | | | | | | [place] [address] | | | | + + + + + + | MCHC | 34.3Comment: Testing | 32.0 - 35.5 | EXTERNAL | | | | performed at [facility], [address] | g/dL | LAB | | | | [address], | | | | | | [place] [address] | | | | + + + + + + | RDW-CV | 37.6Comment: Testing | 37 - 53 fl | EXTERNAL | | | | performed at [facility], [address] | | LAB | | | | [address], | | | | | | [place] [address] | | | | + + + + + + | Platelet | 176Comment: Testing | 150 - 400 K/uL | EXTERNAL | | | Count | performed at [facility], [address] | | LAB | | | Plasma | [address], | | | | | | [place] [address] | | | | + + + + + + | MPV | 7.8Comment: Testing | fl | EXTERNAL | | | | performed at [facility], [address] | | LAB | | | | [address], | | | | | | [place] [address] | | | | + + + + + + | Differentia | AUTOMATEDComment: | | EXTERNAL | | | l Type | Testing performed at | | LAB | | | | [facility], [address] | | | | | | [place] | | | | | | [address] | | | | + + + [...] | | | | performed at [facility];[address] | | LAB | | | | [facility];[place], [place] | | | | | | [address] | | | | + + + [...] | | | | performed at [facility] | | LAB | | | | [address];[place] | | | | | | [address] | | | | + + + [...] | | EN LEVEL | performed at [facility];[address] | ug/mL | LAB | | | | [address];[place], [place] | | | | | | [address] | | | | + + + [...] | | | | performed at [facility];[address] | mmol/L | LAB | | | | [address];[place] | | | | | | [address] | | | | + + + + + + | K | 3.1 (L)Comment: Testing | 3.5 - 4.9 | EXTERNAL | | | | performed at [facility];[address] | mmol/L | LAB | | | | [address];[place] | | | | | | [address] | | | | + + + + + + | Cl | 109Comment: Testing | 99 - 109 mmol/L | EXTERNAL | | | | performed at [facility];[address] | | LAB | | | | [address];[place] | | | | | | [address] | | | | + + + + + + | CO2 | 27Comment: Testing | 23 - 32 mmol/L | EXTERNAL | | | | performed at [facility];[address] | | LAB | | | | [address];[place] | | | | | | [address] | | | | + + + + + + | Anion Gap | 10Comment: Testing | 5 - 20 mmol/L | EXTERNAL | | | | performed at [facility];[address] | | LAB | | | | [address];[place] | | | | | | [address] | | | | + + + + + + | Glucose, | 78Comment: Testing | 65 - 99 mg/dL | EXTERNAL | | | Fasting | performed at [facility];[address] | | LAB | | | | [address];[place] | | | | | | [address] | | | | + + + + + + | BUN | 7 (L)Comment: Testing | 8 - 25 mg/dL | EXTERNAL | | | | performed at [facility];[address] | | LAB | | | | [address];[place] | | | | | | [address] | | | | + + + + + + | Creatinine | 0.77Comment: Testing | 0.50 - 1.00 | EXTERNAL | | | | performed at [facility];[address] | mg/dL | LAB | | | | [address];[place] | | | | | | [address] | | | | + + + + + + | BUN/Creatin | 9Comment: Testing | | EXTERNAL | | | ine Ratio | performed at [facility];[address] | | LAB | | | | [address];[place] | | | | | | [address] | | | | + + + + + + | Calcium | 7.8 (L)Comment: Testing | 8.5 - 10.2 | EXTERNAL | | | | performed at [facility];[address] | mg/dL | LAB | | | | [address];[place], [place] | | | | | | [address] | | | | + + + [...] | | | | | at [facility];[address];[place] [address] | | | | + + + [...] | | EN LEVEL | performed at [facility];[address] | ug/mL | LAB | | | | [address];[place], [place] | | | | | | [address] | | | | + + + [...] | | | | performed at [facility];[address] | | LAB | | | | [address] [facility];[place], [place] | | | | | | [address] | | | | + + + [...] | | | | | | ACUTE LA Testing | | | | | | performed at [facility] | | | | | | [address] Andrzej;[place], [place] | | | | | | [address] | | | | + + + [...] | | | | performed at [facility];[address] | | LAB | | | | [address];[place], [place] | | | | | | [address] | | | | + + + [...] | | EN LEVEL | performed at [facility];888 | ug/mL | LAB | | | | [address];[place], [place] | | | | | | [address] | | | | + + + [...] TR | | | Vmax: 2.44 m/s Traffic Attendant: Authenticated by: Finesse Cortez | | | Report Date/Time: 11-15-2013 18:08:31 | | + + + + + | Procedure Note | + + | Reji Pacheco Conversion - 06/15/2019 1:42 PM PDT Patient [...] 23.26 cmAVA Vmax: 3.14 cm2AVA (VTI): 2.90 wf3YYZE Dopp: | | 4.57 l/phgy2RIUB Dopp: 7.95 l/minHR: 117.60 BPMLVOT maxP.36 mmHgLVOT [...] maxP.88 mmHgTR Vmax: | | 2.44 m/s Traffic Attendant: ABAuthenticated by: Finesse Aponte Date/Time: 11-15-2013 | [...] |TR Vmax: 2.44 m/s | | | |Traffic Attendant: AB | |Authenticated by: Finesse Cortez MD [...] | | EN LEVEL | performed at [facility];888 | ug/mL | LAB | | | | [address];[place], [place] | | | | | | [address] | | | | + + + [...] | | | | performed at [facility];888 | mmol/L | LAB | | | | [address];[place] | | | | | | [address] | | | | + + + + + + | K | 3.9Comment: Testing | 3.5 - 4.9 | EXTERNAL | | | | performed at [facility];888 | mmol/L | LAB | | | | [address];[place] | | | | | | [address] | | | | + + + + + + | Cl | 114 (H)Comment: Testing | 99 - 109 mmol/L | EXTERNAL | | | | performed at [facility];[address] | | LAB | | | | [address];[place] | | | | | | [address] | | | | + + + + + + | CO2 | 20 (L)Comment: Testing | 23 - 32 mmol/L | EXTERNAL | | | | performed at [facility];[address] | | LAB | | | | [address];[place] | | | | | | [address] | | | | + + + + + + | Anion Gap | 14Comment: Testing | 5 - 20 mmol/L | EXTERNAL | | | | performed at [facility];[address] | | LAB | | | | [address];[place] | | | | | | [address] | | | | + + + + + + | Glucose, | 153 (H)Comment: Testing | 65 - 99 mg/dL | EXTERNAL | | | Fasting | performed at [facility];[address] | | LAB | | | | [address];[place] | | | | | | [address] | | | | + + + + + + | BUN | 8Comment: Testing | 8 - 25 mg/dL | EXTERNAL | | | | performed at [facility];[address] | | LAB | | | | [address];[place] | | | | | | [address] | | | | + + + + + + | Creatinine | 0.92Comment: Testing | 0.50 - 1.00 | EXTERNAL | | | | performed at [facility];888 | mg/dL | LAB | | | | [address];[place] | | | | | | [address] | | | | + + + + + + | BUN/Creatin | 9Comment: Testing | | EXTERNAL | | | ine Ratio | performed at [facility];[address] | | LAB | | | | [address];[place] | | | | | | [address] | | | | + + + + + + | Calcium | 7.4 (L)Comment: Testing | 8.5 - 10.2 | EXTERNAL | | | | performed at [facility];888 | mg/dL | LAB | | | | [address];[place] | | | | | | [address] | | | | + + + [...] | | | | | at [facility];[address];[place] [address] | | | | + + + [...] | | | | performed at [facility];[address] | | LAB | | | | [address] [place]nel[place] | | | | | | [address] | | | | + + + [...] | | | | | | ACUTE LA Testing | | | | | | performed at [facility];[address] | | | | | | [address];[place], [place] | | | | | | [address] | | | | + + + [...] | | | | performed at [facility];[address] | | LAB | | | | Ros[address] Donnelly;[place] | | | | | | [address] | | | | + + + [...] | | EN LEVEL | performed at [facility];888 | ug/mL | LAB | | | | [address];[place], [place] | | | | | | [address] | | | | + + + [...] At | + + + | RONALD KOWTHRLEIGHANN XR CHEST 1 VIEW 11/15/2013 6:08 AM [...] | | | | performed at [facility];888 | mmol/L | LAB | | | | [address];[place], [place] | | | | | | [address] | | | | + + + [...] | | | | performed at [facility] | | LAB | | | | Rosenda Donnelly;[place] | | | | | | [address] | | | | + + + [...] | | | | | | ACUTE LA CKTRP PHONED TO | | | | | | ICU GAYLE N AT 0540 BY | | | | | | LJREAD BACK RESULTS | | | | | | VERIFIEDTesting | | | | | | performed at [facility];[address] | | | | | | [address] Donnelly;[place] | | | | | | [address] | | | | + + + [...] | LAB | | | | [address], | | | | | | [place] [address] | | | | + + + + + + | RED CELL | 3.94Comment: Testing | 3.70 - 5.10 | EXTERNAL | | | COUNT | performed at [facility], [address] | M/uL | LAB | | | | [address], | | | | | | [place] [address] | | | | + + + + + + | Hgb | 10.9 (L)Comment: Testing | 11.3 - 15.5 | EXTERNAL | | | | performed at [facility], [address] | g/dL | LAB | | | | [address], | | | | | | [place] [address] | | | | + + + + + + | Hematocrit, | 33.7 (L)Comment: Testing | 34.0 - 46.0 % | EXTERNAL | | | POC | performed at [facility], [address] | | LAB | | | | [address], | | | | | | [place] [address] | | | | + + + + + + | MCV | 85.6Comment: Testing | 80.0 - 100.0 fl | EXTERNAL | | | | performed at [facility], [address] | | LAB | | | | [address], | | | | | | [place] [address] | | | | + + + + + + | MCH | 27.7Comment: Testing | 27.0 - 34.0 pg | EXTERNAL | | | | performed at [facility], [address] | | LAB | | | | [address], | | | | | | [place] [address] | | | | + + + + + + | MCHC | 32.3Comment: Testing | 32.0 - 35.5 | EXTERNAL | | | | performed at [facility], [address] | g/dL | LAB | | | | [address], | | | | | | [place] [address] | | | | + + + + + + | RDW-CV | 37.6Comment: Testing | 37 - 53 fl | EXTERNAL | | | | performed at [facility], [address] | | LAB | | | | [address], | | | | | | [place] [address] | | | | + + + + + + | Platelet | 196Comment: Testing | 150 - 400 K/uL | EXTERNAL | | | Count | performed at [facility], [address] | | LAB | | | Plasma | [address], | | | | | | [place] [address] | | | | + + + + + + | MPV | 7.3Comment: Testing | fl | EXTERNAL | | | | performed at [facility], [address] | | LAB | | | | [address], | | | | | | [place] [address] | | | | + + + + + + | Differentia | AUTOMATEDComment: | | EXTERNAL | | | l Type | Testing performed at | | LAB | | | | [facility], [address] | | | | | | [place] | | | | | | [address] | | | | + + + [...] | | | Serum | performed at [facility];888 | mOsm/kg | LAB | | | | [address] Don[address];[place] | | | | | | [address] | | | | + + + [...] | | | | performed at [facility];[address] | | LAB | | | | [address];[place], [place] | | | | | | [address] | | | | + + + [...] | | EN LEVEL | performed at [facility];[address] | ug/mL | LAB | | | | [address];[place], [place] | | | | | | [address] | | | | + + + [...] | | | | performed at [facility];888 | mmol/L | LAB | | | | [address];[place] | | | | | | [address] | | | | + + + + + + | K | 3.2 (L)Comment: Testing | 3.5 - 4.9 | EXTERNAL | | | | performed at [facility];888 | mmol/L | LAB | | | | [address];[place] | | | | | | [address] | | | | + + + + + + | Cl | 117 (H)Comment: Testing | 99 - 109 mmol/L | EXTERNAL | | | | performed at [facility];[address] | | LAB | | | | [address];[place] | | | | | | [address] | | | | + + + + + + | CO2 | 13 (LL)Comment: CO2 | 23 - 32 mmol/L | EXTERNAL | | | | PHONED TO AIDEE Butt AT | | LAB | | | | 0520 BY LJREAD BACK | | | | | | RESULTS VERIFIEDTesting | | | | | | performed at [facility];[address] | | | | | | [address];[place] | | | | | | [address] | | | | + + + + + + | Anion Gap | 20Comment: Testing | 5 - 20 mmol/L | EXTERNAL | | | | performed at [facility];[address] | | LAB | | | | [address];[place] | | | | | | [address] | | | | + + + + + + | Glucose, | 130 (H)Comment: Testing | 65 - 99 mg/dL | EXTERNAL | | | Fasting | performed at [facility];[address] | | LAB | | | | [address];[place] | | | | | | [address] | | | | + + + + + + | BUN | 8Comment: Testing | 8 - 25 mg/dL | EXTERNAL | | | | performed at [facility];[address] | | LAB | | | | [address];[place] | | | | | | [address] | | | | + + + + + + | Creatinine | 0.69Comment: Testing | 0.50 - 1.00 | EXTERNAL | | | | performed at [facility];888 | mg/dL | LAB | | | | [address];[place] | | | | | | [address] | | | | + + + + + + | BUN/Creatin | 12Comment: Testing | | EXTERNAL | | | ine Ratio | performed at [facility];[address] | | LAB | | | | [address];[place] | | | | | | [address] | | | | + + + + + + | Calcium | 6.7 (L)Comment: Testing | 8.5 - 10.2 | EXTERNAL | | | | performed at [facility];888 | mg/dL | LAB | | | | [address];[place] | | | | | | [address] | | | | + + + + + + | Protein, | 5.2 (L)Comment: Testing | 6.3 - 8.2 g/dL | EXTERNAL | | | Total | performed at [facility];[address] | | LAB | | | | [address];[place] | | | | | | [address] | | | | + + + + + + | Albumin | 3.3Comment: Testing | 3.3 - 4.8 g/dL | EXTERNAL | | | | performed at [facility];[address] | | LAB | | | | [address];[place] | | | | | | [address] | | | | + + + + + + | Globulin | 1.9Comment: Testing | 1.3 - 4.9 g/dL | EXTERNAL | | | | performed at [facility];[address] | | LAB | | | | [address];[place] | | | | | | [address] | | | | + + + + + + | A/G Ratio | 1.8Comment: Testing | 1.0 - 2.4 | EXTERNAL | | | | performed at [facility];[address] | | LAB | | | | [address];[place] | | | | | | [address] | | | | + + + + + + | Bilirubin | 0.2Comment: Testing | 0.1 - 1.5 mg/dL | EXTERNAL | | | Total | performed at [facility];[address] | | LAB | | | | [address];[place] | | | | | | [address] | | | | + + + + + + | ALP, | 47Comment: Testing | 35 - 115 U/L | EXTERNAL | | | External | performed at [facility];[address] | | LAB | | | | [address];[place] | | | | | | [address] | | | | + + + + + + | AST | 49 (H)Comment: Testing | 10 - 45 U/L | EXTERNAL | | | | performed at [facility];[address] | | LAB | | | | [address];[place] | | | | | | [address] | | | | + + + + + + | ALT | 61Comment: Testing | 10 - 65 U/L | EXTERNAL | | | | performed at [facility];[address] | | LAB | | | | [address];[place] | | | | | | [address] | | | | + + + [...] | | | | | at [facility];[address] [place] [address] | | | | | | [facility];[place] [address] | | | | + + + [...] | | Fingerstick | performed at [facility];[address] | | LAB | | | | [address];[place] | | | | | | [address] | | | | + + + [...] + + | PH ART | 7.141 ()Comment: | 7.350 - 7.450 | EXTERNAL | | | | Testing performed at | | LAB | | | | [facility];[address];[place] [address] | | | | + + + + + + | PCO2 ART | 40Comment: Testing | 35 - 45 mmHg | EXTERNAL | | | | performed at [facility];[address] | | LAB | | | | [address];[place] | | | | | | [address] | | | | + + + + + + | PO2 ART | 283 (H)Comment: Testing | 80 - 105 mmHg | EXTERNAL | | | | performed at [facility];[address] | | LAB | | | | [address];[place] | | | | | | [address] | | | | + + + + + + | Lactate, | 3.7 (H)Comment: Testing | 0.36 - 1.25 | EXTERNAL | | | Arterial | performed at [facility];888 | mmol/L | LAB | | | | [address];[place] | | | | | | [address] | | | | + + + + + + | HCO3 ART | 14 (L)Comment: Testing | 22 - 26 mmol/L | EXTERNAL | | | | performed at [facility];[address] | | LAB | | | | [address];[place] | | | | | | [address] | | | | + + + + + + | POC | 15 (L)Comment: Testing | 23 - 27 mEq/L | EXTERNAL | | | APPEARANCE | performed at [facility];[address] | | LAB | | | UA | [address];[place] | | | | | | [address] | | | | + + + + + + | Base | 15 (H)Comment: Testing | 0.0 - 2.0 | EXTERNAL | | | deficit | performed at [facility];888 | mmol/L | LAB | | | | [address];[place] | | | | | | [address] | | | | + + + + + + | O2 SAT ART | 100 (H)Comment: Testing | 95 - 98 % | EXTERNAL | | | | performed at [facility];[address] | | LAB | | | | [address];[place] | | | | | | [address] | | | | + + + + + + | FiO2, POC | 70Comment: Testing | % | EXTERNAL | | | | performed at [facility];[address] | | LAB | | | | [address];[place] | | | | | | [address] | | | | + + + + + + | Comment, | Tidal Volume = | | EXTERNAL | | | POC | 500Comment: Peep = 5Resp | | LAB | | | | Rate = 15Testing | | | | | | performed at [facility];[address] | | | | | | [address];[place] | | | | | | [address] | | | | + + + [...] RONALD GUTIERREZTYFAWTHROPXR CHEST 1 | | VIEW11/14/2013 11:33 PM [...] | | | | performed at [facility];888 | mmol/L | LAB | | | | [address];[place], [place] | | | | | | [address] | | | | + + + [...] | | | (Calc) | performed at [facility];888 | mmol/L | LAB | | | | [address];[place], [place] | | | | | | [address] | | | | + + + + + + | pH, Bld | 7.179 (L)Comment: | 7.300 - 7.450 | EXTERNAL | | | | Testing performed at | | LAB | | | | [facility];[address];[place] [address] | | | | + + + [...] | | Patient | performed at [facility];[address] | | LAB | | | | [address] [facility];[place], [place] | | | | | | [address] | | | | + + + [...] | | | | performed at [facility];[address] | | | | | | [address];[place], [place] | | | | | | [address] | | | | + + + [...] | | | | performed at [facility];[address] | | LAB | | | | [address];[place] | | | | | | [address] | | | | + + + + + + | RED CELL | 4.41Comment: Testing | 3.70 - 5.10 | EXTERNAL | | | COUNT | performed at [facility];888 | M/uL | LAB | | | | [address];[place] | | | | | | [address] | | | | + + + + + + | Hgb | 12.7Comment: Testing | 11.3 - 15.5 | EXTERNAL | | | | performed at [facility];888 | g/dL | LAB | | | | [address];[place] | | | | | | [address] | | | | + + + + + + | Hematocrit, | 37.4Comment: Testing | 34.0 - 46.0 % | EXTERNAL | | | POC | performed at [facility];[address] | | LAB | | | | [address];[place] | | | | | | [address] | | | | + + + + + + | MCV | 84.7Comment: Testing | 80.0 - 100.0 fl | EXTERNAL | | | | performed at [facility];[address] | | LAB | | | | [address];[place] | | | | | | [address] | | | | + + + + + + | MCH | 28.8Comment: Testing | 27.0 - 34.0 pg | EXTERNAL | | | | performed at [facility];[address] | | LAB | | | | [address];[place] | | | | | | [address] | | | | + + + + + + | MCHC | 34.0Comment: Testing | 32.0 - 35.5 | EXTERNAL | | | | performed at [facility];888 | g/dL | LAB | | | | [address];[place] | | | | | | [address] | | | | + + + + + + | RDW-CV | 37.2Comment: Testing | 37 - 53 fl | EXTERNAL | | | | performed at [facility];[address] | | LAB | | | | [address];[place] | | | | | | [address] | | | | + + + + + + | Platelet | 296Comment: Testing | 150 - 400 K/uL | EXTERNAL | | | Count | performed at [facility];[address] | | LAB | | | Plasma | [address];[place] | | | | | | [address] | | | | + + + + + + | MPV | 7.2Comment: Testing | fl | EXTERNAL | | | | performed at [facility];[address] | | LAB | | | | [address];[place] | | | | | | [address] | | | | + + + + + + | Differentia | AUTOMATEDComment: | | EXTERNAL | | | l Type | Testing performed at | | LAB | | | | [facility];[address];[place] [address] | | | | + + + [...] | | | | performed at [facility];[address] | | LAB | | | | [address];[place] | | | | | | [address] | | | | + + + [...] | | | | performed at [facility] | | LAB | | | | [address];[place], [place] | | | | | | [address] | | | | + + + [...] | | EN LEVEL | performed at [facility];888 | ug/mL | LAB | | | | [address];[place] | | | | | | [address] | | | | + + + [...] | | Total | performed at [facility];[address] | | LAB | | | | [address];[place] | | | | | | [address] | | | | + + + + + + | Albumin | 3.1 (L)Comment: Testing | 3.3 - 4.8 g/dL | EXTERNAL | | | | performed at [facility];[address] | | LAB | | | | [address];[place] | | | | | | [address] | | | | + + + + + + | Bilirubin | 0.2Comment: Testing | 0.1 - 1.5 mg/dL | EXTERNAL | | | Total | performed at [facility];[address] | | LAB | | | | [address];[place] | | | | | | [address] | | | | + + + + + + | Bilirubin | <0.1Comment: Testing | 0.0 - 0.3 mg/dL | EXTERNAL | | | Direct | performed at [facility];[address] | | LAB | | | | [address];[place] | | | | | | [address] | | | | + + + + + + | ALP, | 76Comment: Testing | 35 - 115 U/L | EXTERNAL | | | External | performed at [facility];[address] | | LAB | | | | [address];[place] | | | | | | [address] | | | | + + + + + + | AST | 75 (H)Comment: Testing | 10 - 45 U/L | EXTERNAL | | | | performed at [facility];[address] | | LAB | | | | [address];[place] | | | | | | [address] | | | | + + + + + + | ALT | 67 (H)Comment: Testing | 10 - 65 U/L | EXTERNAL | | | | performed at [facility];[address] | | LAB | | | | [address];[place] | | | | | | [address] | | | | + + + [...] | | | | performed at [facility];888 | mmol/L | LAB | | | | [address];[place] | | | | | | [address] | | | | + + + + + + | K | 3.0 (L)Comment: Testing | 3.5 - 4.9 | EXTERNAL | | | | performed at [facility];888 | mmol/L | LAB | | | | [address];[place] | | | | | | [address] | | | | + + + + + + | Cl | 114 (H)Comment: Testing | 99 - 109 mmol/L | EXTERNAL | | | | performed at [facility];[address] | | LAB | | | | [address];[place] | | | | | | [address] | | | | + + + + + + | CO2 | 16 (L)Comment: Testing | 23 - 32 mmol/L | EXTERNAL | | | | performed at [facility];[address] | | LAB | | | | [address];[place] | | | | | | [address] | | | | + + + + + + | Anion Gap | 16Comment: Testing | 5 - 20 mmol/L | EXTERNAL | | | | performed at [facility];[address] | | LAB | | | | [address];[place] | | | | | | [address] | | | | + + + + + + | Glucose, | 187 (H)Comment: Testing | 65 - 99 mg/dL | EXTERNAL | | | Fasting | performed at [facility];[address] | | LAB | | | | [address];[place] | | | | | | [address] | | | | + + + + + + | BUN | 10Comment: Testing | 8 - 25 mg/dL | EXTERNAL | | | | performed at [facility];[address] | | LAB | | | | [address];[place] | | | | | | [address] | | | | + + + + + + | Creatinine | 0.79Comment: Testing | 0.50 - 1.00 | EXTERNAL | | | | performed at [facility];888 | mg/dL | LAB | | | | [address];[place] | | | | | | [address] | | | | + + + + + + | BUN/Creatin | 13Comment: Testing | | EXTERNAL | | | ine Ratio | performed at [facility];[address] | | LAB | | | | [address];[place] | | | | | | [address] | | | | + + + + + + | Calcium | 6.5 (L)Comment: Testing | 8.5 - 10.2 | EXTERNAL | | | | performed at [facility];888 | mg/dL | LAB | | | | [address];[place] | | | | | | [address] | | | | + + + [...] | | | | | at [facility];[address] | | | | [address];[place] [address] | | | | + + + [...] Conversion - 06/15/2019 1:42 PM PDT RONALD [id number] years | | FemaleCT HEAD WO CONTRAST11/14/2013 [...] At | + + + | RONALD CASTAÑEDA XR CHEST 1 VIEW 11/14/2013 [...] | Testing performed at | | | [facility];[address] [facility];[place] [address] GRAM STAIN | | | GREATER THAN 10 WBCS/LPF | | | LESS THAN 10 SEC/LPF | | | 2+ GRAM POSITIVE COCCI | | | 1+ GRAM POSITIVE RODS | | | Testing performed at [facility], [address] | | [place] [address] CULTURE | | | 2+ NORMAL UPPER RESPIRATORY CURTIS | | | Testing performed at [facility], [address] | | | [place] [address] REPORT STATUS | | | 11/16/2013 FINAL [...] | | | | performed at [facility];[address] | | LAB | | | | [address];[place] | | | | | | [address] | | | | + + + + + + | RBC, UA | 0-2Comment: Testing | 0 - 5 /hpf | EXTERNAL | | | | performed at [facility];[address] | | LAB | | | | [address];[place] | | | | | | [address] | | | | + + + + + + | Epithelial | NONE SEENComment: | /lpf | EXTERNAL | | | Cells | Testing performed at | | LAB | | | | [facility];[address];[place] [address] | | | | + + + + + + | Bacteria, | TRACE (A)Comment: | | EXTERNAL | | | UA | Testing performed at | | LAB | | | | [facility];[address] [place] [address] | | | | | | [facility];[place] [address] | | | | + + + [...] | | | | performed at [facility];[address] | | LAB | | | | [address];[place] | | | | | | [address] | | | | + + + + + + | Clarity | CLEARComment: Testing | | EXTERNAL | | | | performed at [facility];[address] | | LAB | | | | [address];[place] | | | | | | [address] | | | | + + + + + + | Specific | 1.004Comment: Testing | 1.001 - 1.035 | EXTERNAL | | | [place] | performed at [facility];[address] | | LAB | | | | [address];[place] | | | | | | [address] | | | | + + + + + + | Leukocyte | TRACE (A)Comment: | | EXTERNAL | | | Esterase, | Testing performed at | | LAB | | | Urine | [facility];[address];[place] [address] | | | | + + + + + + | Nitrite, | NEGATIVEComment: Testing | | EXTERNAL | | | Urine | performed at [facility];[address] | | LAB | | | | [address];[place] | | | | | | [address] | | | | + + + + + + | Urobilinoge | 0.2Comment: Testing | mg/dL | EXTERNAL | | | n, Urine | performed at [facility];[address] | | LAB | | | | [address];[place] | | | | | | [address] | | | | + + + + + + | Protein, | NEGATIVEComment: Testing | mg/dL | EXTERNAL | | | Urine | performed at [facility];[address] | | LAB | | | | [address];[place] | | | | | | [address] | | | | + + + + + + | pH, Urine | 5.0Comment: Testing | 4.6 - 8.0 | EXTERNAL | | | | performed at [facility];[address] | | LAB | | | | [address];[place] | | | | | | [address] | | | | + + + + + + | Blood, | NEGATIVEComment: Testing | | EXTERNAL | | | Urine | performed at [facility];[address] | | LAB | | | | [address];[place] | | | | | | [address] | | | | + + + + + + | Ketones | NEGATIVEComment: Testing | mg/dL | EXTERNAL | | | | performed at [facility];[address] | | LAB | | | | [address];[place] | | | | | | [address] | | | | + + + + + + | Bilirubin, | NEGATIVEComment: Testing | | EXTERNAL | | | Urine | performed at [facility];[address] | | LAB | | | | [address];[place] | | | | | | [address] | | | | + + + + + + | Glucose, | NEGATIVEComment: Testing | mg/dL | EXTERNAL | | | Urine | performed at [facility];[address] | | LAB | | | | [address];[place] | | | | | | [address] | | | | + + + [...] EXTERNAL LAB | | Testing performed at [facility];[address] [place] [address];[place] [address] MRSA PCR | | | NEGATIVE Testing performed at | | | [address];[place] [address] | | + + + + +---------+ [...] | | Fingerstick | performed at [facility];[address] | | LAB | | | | [address];[place], [place] | | | | | | [address] | | | | + + + [...]
--- OUTSIDE RECORDS SUMMARY | ~2019-10-10 | XMS | Encounter Summary ---
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 Name | Role | Phone | + [...] Required | Rehabilitatio | | Yan[place], | [place] | | | | n | radiculopath | PA-C [address] | [place], | | | | | y Chronic | [address] | [place] [address] | | | | | low back | [place], [place] | Phone: | | | | | pain [place] | [address] | [phone] | | | | | arthritis of | Phone: | Fax: | | | | | lumbar | [phone] | [phone] | | | | | region | Fax: | | | | | | [place] | [phone] | | | | | | stenosis [...] + + | 04/17/ | Office | [facility] | Shahnazdanowicz, | Left lumbar | | 2013 | Visit | PHYSIATRY [address] | [address] | radiculopathy | | | | [place], | [facility], | (Primary Dx); | | | | [place] [address] | [place] [address] | Chronic low back | | | | [phone] | [phone] | pain; Facet | | | | [...] of the procedure you must 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 She has appropriate fund of knowledge [...] prescription has been given to the [facility]. 3. I did discussed [...] [place] | | | | | | [address] | | | | | | | [...] radiculopathy ICD-9 Code 724.4 Kori Caputo | [facility] | | Joanne presents to the [...] + | [facility] | [address] [place] [address] | [place], [place] | [phone] | | [facility] | | [address] | | | - IMAGING | | [...]
--- OUTSIDE RECORDS SUMMARY | ~2019-10-10 | XMS | Clinical Summary ---
Demographics + + + | Address | [address] | | | [place] [address] | + + + | Home Phone | | + + + | Preferred Language | Unknown | + + + | Marital Status | | + + + | Tenriism Affiliation | 1013 | + + + | Race | Unknown | + + + | Ethnic Group | Unknown | + + + Author + + + | Author | [facility] | | | and Priteshana | + + + | Organization | [facility] | [...] Providers + +------+ + | Care Machine Group Leader Name | Role | Phone | + +------+ + | Roym De La Paz MD | PCP | [...] Nasal | 2 each | 1 | 05/31 | | Activ | | 4 mg/nasal | route as needed for | | | 07/20 | | e | | sprayIndications: | Decreased | | | 19 | | | | halfway current | Responsiveness (May | | | [...] + + + +---------+------+------+-------+ | rOPINIRole | TAKE 1 TABLET BY | | 3 | 10/1 | | Activ | | (REQUIP) 2 MG tablet | MOUTH TWICE DAILY | | | 0/20 | | e | | | AND 2 TABS ONCE | | | 19 | | | | | DAILY AT BEDTIME | | | | | | + + + +---------+------+------+-------+ | fentaNYL | Place 1 patch onto | 10 | 0 | 11/1 | 12/1 | Activ | | (DURAGESIC) 12 | the skin every 72 | patch | | 8/ | 820 | e | | mcg/hrIndications: | hours for 30 days. | | | 19 | 19 | | | S/P insertion of | [...] tablet by | 120 | 0 | 11/1 | 09/30 | Activ | | HYDROcodone-acetamin | mouth every 6 hours | tablet | | 06/19 | 06/19 | e | | ophen (NORCO) 10-325 | as needed for Pain | | | 19 | 19 | | | mg per | for up to 30 days. | | | | | | | tabletIndications: | | | | | | | | S/P insertion of [...] affected | 5800 g | 3 | 08/31 | 08/31 | Activ | | lidocaine-prilocaine | area 2 or 3 times a | | | 06/19 | 05/19 | e | | (EMLA) | day [...] by mouth | 120 | 3 | 08/31 | | Activ | | (ROBAXIN) 500 mg | 4 (four) times | tablet | | 06/19 | | e | | tabletIndications: | daily. | | | 19 | | | | S/P insertion of [...] INSTILL 10 DROPS | | 0 | 08/31 | | Activ | | (OCUFLOX) 0.3% | INTO AFFECTED EAR | | | 05/19 | | e | | ophthalmic solution | EVERY 12 HOURS FOR 7 | | | 19 | | | | | DAYS | | | | | | + + + +---------+------+------+-------+ | | Apply to affected | 5800 g | 3 | 05/31 | 08/31 | Disco | | lidocaine-prilocaine | area 2 or 3 times a | | | 07/20 | 06/19 | ntinu | | (EMLA) | day | | | 19 | 19 | ed | | creamIndications: | | | | | | (Reor | | Sacroiliitis (HCC), | | | | | | peter) | | Lumbar back pain, | | [...] by mouth | 120 | 3 | 07/31 | 08/31 | Disco | | (ROBAXIN) 500 mg | 4 (four) times | tablet | | 05/19 | 06/19 | ntinu | | tabletIndications: | daily. | | | 19 | 19 | ed | | S/P insertion of [...] tablet by | 120 | 0 | 07/31 | 08/31 | Disco | | HYDROcodone-acetamin | mouth every 6 hours | tablet | | 05/19 | 8 | ntinu | | ophen (NORCO) 10-325 | as needed for Pain | | | 19 | 19 | ed | | mg per | for up to 30 days. | | | | | (Reor | | tabletIndications: | | | | | | peter) | | S/P insertion of | | [...] patch onto | 10 | 0 | 10/1 | 11/1 | Disco | | (DURAGESIC) 12 | the skin every 72 | patch | | 7/20 | 8/20 | ntinu | | mcg/hrIndications: | hours for 30 days. | | | 19 | 19 | ed | | S/P insertion of [...] Overview: Added automatically from request for surgery [id number] | + + + + + | Spondylosis without myelopathy or radiculopathy, lumbosacral | 03/20/2019 | | region | | + + + + + | Overview: Added automatically from request for surgery [id number] | + + + + + | Chronic bilateral low back pain without sciatica | 03/20/2019 | + + + + + | Overview: Added automatically from request for surgery [id number] | + + + + + | Intervertebral disc disorders with radiculopathy, lumbosacral | 02/25/2019 | | region | | + + + + + | Overview: Added automatically from request for surgery [id number] | + + + + + | Chronic low back pain with sciatica | 02/25/2019 | + + + + + | Overview: Added automatically from request for surgery [id number] | + + + + + | Lumbar region somatic dysfunction | 02/25/2019 | + + + + + | Overview: Added automatically from request for surgery [id number] | + + + + + | Strain of lumbar region | 02/25/2019 | + + + + + | Overview: Added automatically from request for surgery [id number] | + + + + + | Spinal stenosis of lumbosacral region | 02/25/2019 | + + + + + | Overview: Added automatically from request for surgery [id number] | + + + + + | [...] Overview: Added automatically from request for surgery [id number] | | Problem List 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 | + + + + + [...] | + +---+ + + | Overview: CHRISKeven [id number] Decision | + + + +---+ | [...] + + + + | 09/18/ | Office | Pain Medicine | Alfredo Casillas, DO | S/P insertion of | | 2018 | Visit | | | spinal cord | | [...] | | | | | pain | +--------+ + + + + | 09/17/ | Office | Pain Medicine | Denys Sibley, | S/P insertion of | | 2018 | Visit | | DO | spinal [...] + + | 08/31/ | Telephone | Pain Medicine | Denys Silbey, | Back Pain (Severe | | 2018 | | | DO | pain) | +--------+ + + + + | 08/31/ | Telephone | Neurosurgery | Niki Pizarro, | Other (patient | | 2018 | | | RN | trying to reach | | | | | | Toñito's office) | +--------+ + + + + | 08/31/ | Telephone | Orthopedic Surgery | Maykel Hutchins MD | Back Pain (Severe) | | 2018 | | | | | +--------+ + + + + | 08/31/ | Telephone | Orthopedic Surgery | Alfredo Casillas DO | Triage | | 2018 | | | | | +--------+ + + + + | 08/27/ | Telephone | Pain Medicine | Denys Sibley, | Follow-up | | 2018 | | | DO | | +--------+ + + + + | 08/16/ | Office | Pain Medicine | Denys Sibley, | S/P insertion of | | 2018 | Visit | | DO | spinal cord | | | | | | stimulator (Primary | | | | | | Dx); Spinal stenosis | | | | | | of lumbosacral | | | | | | region; Intractable | | | | | | back pain; Encounter | | [...] radiculopathy | +--------+ + + + + | 08/16/ | Office | Orthopedic Surgery | Gabi Guzman | S/P insertion of | | 2018 | Visit | | KANG Colin | spinal cord | | | | | | stimulator (Primary | | | | | | Dx); DDD | | | | | | [...] Gabi Guzman | Imaging Only | | 2018 | | | KANG Colin | | +--------+ + + + + | 07/18/ | Hospital | Radiology | Maykel Hutchins MD | | | 2018 | Encounter | | | | +--------+ + + + + | 07/18/ | Preadmit | Pre-Admission | No, Physician | | | 2018 | Visit | Testing | | | [...] region | | 2018 | Visit | | DO | somatic [...] back | | 2019 | Procedure | | | pain with [...] stenosis | +--------+ + + + + from [...] | No known problems | Phong | Giuseppe | | + + +--------+ [...] [place] | | | | | | [address] | | | | | | | [...] + + + | Vaccine: | | 08/13/2019 | | | Dtap/Tdap/Td (2 - | 9 | | | | Td) | | | | + + + + + | Vaccine: Influenza | Completed | 08/13/2019 | | + + + + + [...] | | 03/04/ | [id number] | | [id number]: Qty: 1 | ogical | Spine | MEDICAL - | | 2020 | S | | on 08/03/2019 by Cuong, | | Lumbar | STJU | | | /[id number] | | MD Maykel at [facility] | Stimul | | | | | 444 | | [facility] | ator | | | | [...] | | 11/23/ | [id number] | | [id number]: Qty: 1 on | | | MEDICAL - | | 2020 | S | | 03/28/2019 by Sonja, | | | STJU | | | /[id number] | | DO Alfredo | | | | | | 330 / | + +--------+--------+ +--------+--------+--------+ | Proclaim 5 EliteImplanted: | | N/A: | ST CASEY | | 01/15/ | 3660 | | Qty: 1 on 08/03/2019 by Cuong, | | Spine | MEDICAL - | | 2020 | /[id number] | | MD Maykel at [facility] | | Lumbar | STJU | | | 6.1 | | [facility] | | | | | | /NA | + +--------+--------+ +--------+--------+--------+ Procedures + +--------+ + + + | Procedure Name | Priori | Date/Time | Associated Diagnosis | Comments | | | ty | | | | + +--------+ + + + | IMAGING REPORT - | | 08/23/2019 | | Results for this | | [...] | | | Needs | | | CONTACT CENTER ASSISTANT | | | reques | | | [...] section. | + +--------+ +---+ + | LABS - EXTERNAL SCAN | | 07/18/2019 | | Results for this | | | | 12:00 AM | | procedure are in the | | | | PDT | | results section. | + +--------+ +---+ + from Last 3 Months Results IMAGING REPORT - EXTERNAL SCAN (08/23/2019 12:00 AM PDT) + + + | Narrative | Performed At | + + + | Ordered by an | | | unspecified provider. | | + + + POC Glucose (08/03/2019 8:39 PM PDT)Only the most recent of 7 results within the time lauri od is included. + + + + + + | Component | Value | Ref Range | Performed | Pathologist | | | | | At | Signature | + + + + + + | Glucose, | 92Comment: Testing | 65 - 99 mg/dL | [facility] | | | POC | performed at [facility];[address] | | LABORATORY | | | | [address];[place] | | | | | | [address] | | | | + + + + + + + + | Specimen | + + | | + + + + + + + | Performing | Address | City/State/Zipcode | Phone Number | | Organization | | | | + + + + + | [facility] | [address] | [place] [address] | [phone] | + + + + + LINSEY [...] [facility] | | Spinal cord stimulator FINDINGS: Fluoro Time: .17 | | | [...] | | Laminotomy Thoracic Spinal cord stimulator T07/10 | | | | FINDINGS: | | [...] + +---------+ + + Airway (08/03/2019 9:52 AM PDT) + + [...] - 08/03/2019 9:52 AM PDT Anesthesia Airway Pqkxuozxa77/4/2019 | | 9:33Preprocedure check: patient identified, oxygen, [...] + Type and Screen (08/03/2019 7:46 AM PDT)Only the most recent of 2 results within the time period is included. [...] + + + | BB BAND | [id number] | | [facility] | | | | | | LABORATORY | | + + + + + + | BB BAND | Testing performed at | | [facility] | | | | [facility];[address] | | LABORATORY | | | | [address]vd;[place] [address] | | | | + + + + + + + + | Specimen | + + | Blood | + + + + + + + | Performing | Address | City/State/Zipcode | Phone Number | | Organization | | | | + + + + + | [facility] | [address] | [place] [address] | [phone] | + + + + + XR Chest PA and Lateral (07/18/2019 3:24 [...] + +---------+ + + MRSA NAAT (07/18/2019 2:27 PM [...] [facility] | | | | performed at [facility];[address] | | LABORATORY | | | | [address];[place] | | | | | | [address] | | | | + + + + + + + + | Specimen | + + | Tissue - Both | | anterior nares (body | | structure) | + + + + + + + | Performing | Address | City/State/Zipcode | Phone Number | | Organization | | | | + + + + + | [facility] | [address] | [place] [address] | [phone] | + + + + + PTT (07/18/2019 2:26 PM PDT) + + + + + + | Component | Value | Ref Range | Performed | Pathologist | | | | | At | Signature | + + + + + + | PTT | 29Comment: Testing | 23 - 32 seconds | [facility] | | | | performed at [facility];[address] | | LABORATORY | | | | [address];[place] | | | | | | [address] | | | | + + + + + + + + | Specimen | + + | Blood | + + + + + + + | Performing | Address | City/State/Zipcode | Phone Number | | Organization | | | | + + + + + | [facility] | [address] | [place] [address] | [phone] | + + + + + Protime INR (07/18/2019 2:26 PM PDT) + + + + + + | Component | Value | Ref Range | Performed | Pathologist | | | | | At | Signature | + + + + + + | INR | 1.0Comment: REFERENCE | | [facility] | | | | RANGE:0.9 - 1.2 [...] | | | | performed at [facility] | | | | | | [facility];[place], [place] | | | | | | [address] | | | | + + + + + + + + | Specimen | + + | Blood | + + + + + + + | Performing | Address | City/State/Zipcode | Phone Number | | Organization | | | | + + + + + | [facility] | [address] | [place] [address] | [phone] | + + + + + CBC [...] | | | Absolute | performed at [facility], [address] | [address] | LABORATORY | | | | [address], | | | | | | [place] [address] | | | | + + + + + + + + | Specimen | + + | Blood | + + + + + + + | Performing | Address | City/State/Zipcode | Phone Number | | Organization | | | | + + + + + | [facility] | [address] | [place] [address] | [phone] | + + + + + Comprehensive [...] | >60Comment: GFR <60: | >60 | [facility] | | | GFR | CHRONIC KIDNEY [...] | | | | | | MDRD IDDC traceable | | | | | | equation.Testing | | | | | | performed at [facility], [address] | | | | | | [facility], | | | | | | [place] [address] | | | | + + + + + + + + | Specimen | + + | Blood | + + + + + + + | Performing | Address | City/State/Zipcode | Phone Number | | Organization | | | | + + + + + | [facility] | [address] | [place] [address] | [phone] | + + + + + ECG [...] | | | + +---------+ + + LABS - EXTERNAL SCAN (07/18/2019 12:00 AM PDT) + + + | [...] +---------+--------+ | INDIVIDUAL ASSURANCE | INDIVI | [id number] | | | | Indemn | | [...] +--------+ +---------+--------+ | MEDICARE | MEDICA | [id number] | | [phone] | | Medica | | | RE | | 991-Pr | 5 | | re | | | PART A | | esent | | | | | | AND B | | | | | | + +--------+ +--------+ +---------+--------+ | MEDICARE | MEDICA | [id number] | | [phone] | | Medica | | | RE | | 991-Pr | 5 | | re | | | PART A | | esent | | | | | | AND B | | | | | | + +--------+ +--------+ +---------+--------+ | MEDICARE | MEDICA | [id number] | | [phone] | | Medica | | | RE | | 991-Pr | 5 | | re | | | PART A | | esent | | | | | | AND B | | | | | | + +--------+ +--------+ +---------+--------+ | MEDICARE | MEDICA | [id number] | | [phone] | | Medica | | | RE | | 991-Pr | 5 | | re | | | PART A | | esent | | | | | | AND B | | | | | | + +--------+ +--------+ +---------+--------+ | INDIVIDUAL ASSURANCE | INDIVI | [id number] | | | | Indemn | | [...] +---------+--------+ | INDIVIDUAL ASSURANCE | INDIVI | [id number] | | | | Indemn | | [...] +---------+--------+ | INDIVIDUAL ASSURANCE | INDIVI | [id number] | | | | Indemn | | [...] | 1945 | [phone] | [place] [address] | | | jose | | | 8 (Home) | | + +--------+ +--------+ + + | Mcintosh-Ibeth Andersu | Person | Self | [birth year] | [address] | | mandeep Harshal | al/Fam | | 1945 | [phone] | [place] [address] | | | jose | | | 8 (Home) | | + +--------+ +--------+ + + | Mcintosh-MartitaXiong | Person | Self [birth year] | [address] | | mandeep Harshal | al/Fam | | 1945 | [phone] | [place] [address] | | | jose | | | 8 (Home) | | + +--------+ +--------+ + + | Mcintosh-MartitaXiong | Person | Self [birth year] | [address] | | mandeep Harshal | al/Fam | | 1945 | [phone] | [place] [address] | | | jose | | | 8 (Home) | | + +--------+ +--------+ + + Advance Directives + + + + + | Type | Date Recorded | Patient | Explanation | | | | Template Clerk | | + + + + + | Power of | | | | | Pipe Production Worker | | | | + + + [...]
--- OUTSIDE RECORDS SUMMARY | ~2019-10-10 | XMS | Encounter Summary ---
Demographics + + + | Address | [address] | | | [place] [address] | + + + | Home Phone [...] Providers + +------+ + | Care Equine Breeder Name | Role | Phone | + [...] | | | | sequ[place] | [place] [address] | [address] | | | | | Lumbar | Phone: | Phone: | | | | | radiculopath | [phone] | [phone] | | | | | y | Fax: | Fax: | | | | | Procedures | [phone] | [phone] | | | | | HIM 04/17/18 [...] fracture of fifth | | | | [place] [address], | [address] [place] | lumbar vertebra, | | | | [place] [address] | [place] [address] | sequela (Primary | | | | [phone] | [phone] | Dx); Lumbar | | | | [...] [place] | | | | | | [address] | | | | | | | | +--------+---------+ + + + + + +--------+ + + | Name | Type | Priori | Associated Diagnoses | Order Schedule | | | | ty | | | + + +--------+ + + | AMB REFERRAL TO [facility] | Outpatient | Routin | Closed Compression [...]
--- OUTSIDE RECORDS SUMMARY | ~2019-10-10 | XMS | Encounter Summary ---
Demographics + + + | Address | [address] | | | [place] [address] | + + + | Home Phone [...] Team Providers + +------+ + | Care Fabrication Specialist Name | Role | Phone | [...] Closed | | Radiology | Diagnoses | [place], | [facility] | | | | | Cervical | Darrin | [address] | | | | | radiculopath | [address] | Beena [place], | | | | | y | [address] | [place] | | | | | Myelopathy | [address] | [address] | | | | | (HCC) | [place], [place] | Phone: | | | | | Procedures | [address] | [phone] | | | | | MRI Cervical | Phone: | Fax: | | | | | Spine wo | [phone] | [phone] | | | | | Contrast | Fax: | | | | | | | [phone] | | +--------+--------+ + + + + Reason for Visit + + + | Reason | Comments | + + + | New Patient | Back Pain | + + + Evaluate & Treat [...] | | Services | | Foraminal | Bogdanowicz, | Darrin | | | Required | | stenosis of | Yaneli, | BRI Doan | | | | | lumbar | [address] | [address] | | | | | region | [address] | AV [place], | | | | | Chronic low | [place], [place] | [place] [address] | | | | | back pain | [address] | Phone: | | | | | Facet | Phone: | [phone] | | | | | arthritis of | [phone] | Fax: | | | | | lumbar | Fax: | [phone] | | | | | region | [phone] | | | | | | Scoliosis [...] | | | | | | | [place] OFFICE | | | | | | [...] Description | +--------+---------+ + + + | 07/26/ | Office | [facility] | Romain Darrin | Foraminal stenosis | | 2013 | Visit | NEUROSURGERY [address] | [address] | of lumbar region - | | | | [address] | [address] | left L5-S1 (Primary | | | | [place], [place] | [place] [address] | Dx); Scoliosis of | | | | [address] | [phone] | lumbar spine; Left | | | | [phone] | | lumbar | | | | | | radiculopathy; | | | | | | Cervical | | | | | | radiculopathy; | | | | | | Myelopathy (HCC) | +--------+---------+ + + + Social History [...] + + + | Blood Pressure | 138/88 | 07/26/2014 10:58 AM | | | | | PDT | | + + + + + | Pulse | 73 | 07/26/2014 10:58 AM | | | | | PDT | | + + + + + | Temperature | - | - | | + + + + + | Respiratory Rate | 18 | 07/26/2014 10:58 AM | | | | | PDT | | + + + + + | Oxygen Saturation | - | - | | + + + + + | Inhaled Oxygen | - | - | | | Concentration | | | | + + + + + | Weight | 64 kg (141 lb) | 07/26/2014 10:58 AM | | | | | PDT | | + + + + + | Height | 162.6 cm (5' 4") | 07/26/2014 10:58 AM | | | | | PDT | | + + + + + | Body Mass Index | 24.2 | 07/26/2014 10:58 AM | | | | | PDT | | + + + + + documented in this encounter Patient Instructions Patient Instructions Darrin Hoyos PA - 07/26/2014 11:53 AM PDTPlease continue to s ee your primary care providers. We are planning to get x-rays of your low back as well as a n MRI and x-rays of your cervical spine. We will also get copies of the MRI was recently pe rformed at [facility] of your lumbar spine. After these tests have been completed we w ill see you back in review the resultsElectronically signed by PEE Somers at 11:54 AM PDT documented in this encounter Progress Notes Darrin Hoyos PA - 07/26/2014 11:13 AM PDTFormatting of this note might be differen t from the original. PEE Vang [address] [facility], [address] [place], [place] [address] FAX: NEUROSURGERY HISTORY AND PHYSICAL EXAMINATION CHIEF COMPLAINT: Chief Complaint Patient presents with New Patient Back Pain HISTORY OF PRESENT ILLNESS: The patient is a 69 y.o. female with the complaint of low back and leg pain. This patient has had ongoing problems with her low back and left leg for westley te some time. Unfortunately it has been getting worse. She complains of pain which starts in her low back and radiates down the posterior portion of her left leg down into her foot. She notices some numbness and tingling in the lateral portion of her left foot. She notice s that her leg is weak at times as well. The patient has been following with physiatry and has had multiple injections which have been somewhat helpful for her symptoms. She has evid ently a also seen a surgeon in [facility] he stated she did not need to have surgery pawel dave to her report. She also reports she had a recent MRI in the [facility] which I do not marcos ve to review. The patient states that most activities make her back and leg pain worse. 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 She has been falling more lately. She also notices we akness of her left arm. The patient notices pain in her left arm as well some neck discomfo rt. She does notice some loss of fine motor skills of her hands as well as she has been ghanshyam pping things. This patient has multiple ongoing medical [...] the age of 44. Alcohol abuse Father REVIEW OF SYSTEMS GENERALLY: No fever, no night sweats, no anemia, positive for fatigue, no recent profound weight changes. EYES: Positive for eye problems, positive for use of corrective lenses, no eye injury, pos itive for double vision, no blindness. EARS, NOSE, AND THROAT: No changes in taste or smell, no hearing difficulty, no ringing in the ears, no ear drainage, no dizziness, no voice changes, no difficulty swallowing, no sig nificant snoring, no sleep apnea, no sinus problems, no major dental work. NEUROLOGICALLY: Please see the review of systems discussed above in the history of present illness. In addition, the patient has numbness/pain of arms, numbness/pain of legs, awake with numbness/pain, weakness, muscle aching, coordination difficulty, change in walk, pain i n back, fainting spells, loss of consciousness, tremor/shaking, seizures, memory loss, speec h difficulty, and confusion. PSYCHIATRIC: Positive for depression, positive for sleep disorders, positive for anxiety, no bipolar disorder, no psychotic episodes. Positive suicidal attempts CARDIOVASCULAR: No heart attacks, no heart murmur, positive for heart fluttering, no chest pain, no ankle swelling. LUNG DISEASE: Positive for shortness of breath, positive for cough, no tuberculosis, no bl oody cough, positive for asthma, no emphysema/COPD. GASTROINTESTINAL: Positive for bowel disease, positive for nausea or vomiting, positive fo r rectal bleeding, positive for constipation, positive for fecal/stool incontinence, no live r disease, no gallbladder disease, positive for abdominal pain, no ulcers. KIDNEY DISEASE: Positive for urinary frequency, positive for bladder problems, positive va ginal discharge, no painful or difficult urination, no incontinence. ENDOCRINE: Positive for diabetes, positive for thyroid disease, no osteopenia or osteoporo sis, no breast drainage. SKIN: Positive for breast lumps, no skin changes, no rashes, no itches. HEMATOLOGIC/LYMPHATIC: No enlarged lymph nodes, no easy or unusual bleeding, no personal h istory of cancer. RHEUMATOLOGIC: No joint arthritis, no rheumatoid arthritis. PHYSICAL EXAMINATION: Blood pressure 138/88, pulse 73, resp. rate 18, height 1.626 m (5' 4"), weight 63.957 kg (1 41 lb). Body mass index is 24.19 kg/(m^2). GENERAL: Kori Rubio is in no [...] has no apparent deficits with short or emt intermediate memory. CRANIAL NERVES: II: Acuity is intact. 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 and most likely affecting her left leg and causing some of her left leg pain. The patient also has signs and symptoms of myelopat hy. She also has cervical radiculopathy-type symptoms. I'm recommending that she have an M RI as well as flexion and extension views of her cervical spine. We'll also get flexion and extension views of her lumbar spine. After these tests have been completed I would like to see the patient back for further evaluation and review her tests. Difficult to know how mu ch of her weakness of her leg and her hand are from possibly previous stroke issues or wheth er this is new from radiculopathy I spent 45 minutes in visit with Kori Rubio today with the majority of chet e spent counselling the patient on her diagnosis, options for her care, and coordinating her care. ELECTRONICALLY SIGNED BY: PEE Vang, 07/26/2014 12:03 documented in th is encounter Plan of Treatment +--------+---------+ + + + | Date | Type | Specialty | Care Team | Description | +--------+---------+ + + + | 10/15/ | Office | Pain Medicine | Denys Sibley, | | | 2018 | Visit | | DO Siri [address] | | | | | | [address] [facility] [place] | | | | | | [address] | | | | | | | | +--------+---------+ + + + + +---------+--------+ + + | Name | Type | Priori | Associated Diagnoses | Order Schedule | | | | ty | | | + +---------+--------+ + + | MRI Cervical Spine | Imaging | Routin | Cervical | Expected: | | wo Contrast | | e | radiculopathy | 07/26/2014, Expires: | | | | | Myelopathy (HCC) | 07/26/2015 | + +---------+--------+ + + | XR Cervical Spine 4 | Imaging | Routin | Cervical | Ordered: 07/26/2014 | | or 5 Vws | | e | radiculopathy | | | | | | Myelopathy (HCC) | | + +---------+--------+ + + | XR Lumbar Spine 4 + | Imaging | Routin | Foraminal stenosis | Ordered: 07/26/2014 | | Vw | | e | of lumbar region - | | | | | | left L5-S1 | | | | | | Scoliosis of lumbar | | | | | | spine Left lumbar | | | | | | radiculopathy | | + +---------+--------+ + + documented as of this encounter Visit Diagnoses + + | Diagnosis | + + | 

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
--- OUTSIDE RECORDS SUMMARY | ~2019-10-10 | XMS | Encounter Summary ---
Demographics + + + | Address | [address] | | | [place] [address] | + + + | Home Phone [...] Team Providers + +------+ + | Care Welcome Center Attendant Name | Role | Phone | + +------+ + | Miquel Calhoun MD | PCP | | + +------+ + Encounter Details +--------+ + + + + | Date | Type | Department | Care Team | Description | +--------+ + + + + | 11/05/ | [facility]phone | [facility] | Khushbu Cortez, | | | 2013 | | [facility] | ABSORBER OPERATOR [place], [place] | | | | | [address] | [address] | | | | | Alexandria Chamorro | | | | | | [id number] | | | | | | [facility] | | | | | | [place] [address] | | | | | | [phone] | | | +--------+ + + + [...]
--- OUTSIDE RECORDS SUMMARY | ~2019-10-10 | XMS | Encounter Summary ---
Demographics + + + | Address | [address] | | | [place] [address] | + + + | Home Phone [...] Team Providers + +------+ + | Care Township Clerk Name | Role | Phone | [...] | Lumbar | [place], | [address] | | | | | spondylosis | Shay Mukherjee MD | [place], | | | | | Right hip | [address] | [place] | | | | | pain | [place] | [address] | | | | | Procedures | [place], [place] | Phone: | | | | | [place] | [address] | [phone] | | | | | DX/THER AGNT | Phone: | Fax: | | | | | PAR[place]ERT | [phone] | [phone] | | | | | FACET JOINT, | Fax: | | | | | | LUMBAR/SAC, | [phone] | | | | | | [address] LEVEL | | | | | | | [place] | | | | | | | [place] | | | | | | | E ACET INJ | | | | | | | NOS, 10 MG | | | | | | | [place] | | | | | | | [...] + + | 02/08/ | Hospital | [facility] | Spenser, | Trochanteric | | 2016 | Encounter | MED CTR XRAY [address] | [address] | bursitis of right | | | | [place] | [facility], | hip (Primary Dx); | | | | [place] [address] | [place] [address] | Chronic bilateral | | | | [phone] | [phone] | low back pain with | | | | | | right-sided | | | | | [employer], [place] | sciatica; Facet | | | [...] [place] | | | | | | [address] | | | | | | | [...] Bursa Injection Diagnosis: Lumbar Spondylosis and | [facility] | | Trochanteric Bursitis ICD-10 Code M47.816 and ICD-10 [facility] | | Harshal Rubio presents to the [...] + + | Performing | Address | City/State[facility] | Phone Number | | Organization | | | | + + + + + | [address] | [address] | [place] | [phone] | | [facility] | | [address] | | | - IMAGING | | [...]
--- OUTSIDE RECORDS SUMMARY | ~2019-10-10 | XMS | Encounter Summary ---
Demographics + + + | Address | [address] | | | [place] [address] | + + + | Home Phone | | + + + | Preferred Language | Unknown | + + + | Marital Status | Single | + + + | Taoist Affiliation | NON | + + + | Race | White | + + + | Ethnic Group | Not or | + + + Author + + + | Author | [facility] | + + + | Organization | [facility] | + + + | Address | Unknown | + + + | Phone | Unavailable | + + + Support + + +---------+ + | Name | Relationship | Address | Phone | + + +---------+ + | Royce Menchaca | ECON | Unknown | | + + +---------+ + Care Team Providers + +------+ + | Care Sole Polisher Name | Role | Phone | [...] for | | 2016 | | at [facility] [address] | [address] | new pt appt) | | | | Mcadams Brittany Mailcode: | [address] [facility] | | | | | [address] | [place] [address] | | | | | [facility], | [phone] | | | | | [facility] | | | | | | Floor [place], [place] | | | | | | [address] | | | | | | [phone] | | | +--------+ + + + [...]
--- OUTSIDE RECORDS SUMMARY | ~2019-10-10 | XMS | Encounter Summary ---
Demographics + + + | Address | [address] | | | [place] [address] | + + + | Home Phone | | + + + | Preferred Language | Unknown | + + + | Marital Status | Single | + + + | Quaker Affiliation | NON | + + + [...] Team Providers + +------+ + | Care Support Services Rep Name | Role | Phone | + +------+ + | Oxana Nye | PCP | | + +------+ + Encounter Details +--------+------+ + + + | Date | Type | Department | Care Team | Description | +--------+------+ + + + | 03/09/ | Lab | Laboratory at [facility] | | Chest pain, | | 2015 | | [address] | | unspecified type | | | | [place], [place] | | | | | | [address] | | | | | | [phone] | | | +--------+------+ + + + [...] NON-HDL | 54 | <=130 mg/dL | [facility] | | | [...] | + + + + + | [facility] | [address] | [place], [place] | | | | [address] | [address] | | + + + + + documented in this encounter Visit Diagnoses + + | Diagnosis | + + | Chest pain, unspecified type | + + documented in this encounter"
--- OUTSIDE RECORDS SUMMARY | ~2019-10-10 | XMS | Encounter Summary ---
Demographics + + + | Address | [address] | | | [place] [address] | + + + | Home Phone [...] + + | Author | [facility] | | | and Priteshana | + + + | Organization | [facility] | | | and [...] Team Providers + +------+ + | Care Illuminator Name | Role | Phone | + [...] | | | | CENTER [address] | [place] | Dx) | | | | [place] | [id number] | | | | | [address] | | | | | | [phone] | | | +--------+ + + + [...] [place] | | | | | | [address] | | | | | | | [...]
--- OUTSIDE RECORDS SUMMARY | ~2019-10-10 | XMS | Encounter Summary ---
Demographics + + + | Address | [address] | | | [place] [address] | + + + | Home Phone [...] Team Providers + +------+ + | Care Hot Plate Plywood Press Operator Name | Role | Phone | + +------+ + | Wendi Aiken | PCP | | + +------+ + Encounter Details +--------+ + + + + | Date | Type | Department | Care Team | Description | +--------+ + + + + | 04/07/ | Imaging | [facility] | Provider, | | | 2018 | Exam | MED CTR EXTERNAL | [address] | | | | | IMAGING | [address] | | | | | [phone] | [place] [address] | | +--------+ + + + + [...] | | | | | | [address] [facility] [facility] | | | | | | [address] | | | | | | | [...]
--- OUTSIDE RECORDS SUMMARY | ~2019-10-10 | XMS | Encounter Summary ---
Demographics + + + | Address | [address] | | | [place] [address] | + + + | Home Phone [...] Team Providers + +------+ + | Care Diesel Locomotive Engineer Name | Role | Phone | [...] + + | 04/28/ | Emergency | [facility] | Jean-Paul Flowers, | Chronic hip pain, | | 2014 | | MED CTR EMERGENCY | MD [address] | right (Primary Dx); | | | | CENTER [address] | [place] | Chronic low back | | | | [place] | [address] | pain; Frequent falls | | | | [address] | | | | | | [phone] | | | +--------+ + + + [...] Nugent MD - 04/28/2015Follow-up with Isaura from [facility] social work for assistance with home [...] [place] | | | | | | [address] | | | | | | | [...] | ---- | | | 04/28/2015 08:18 [facility] | | | Emergency -Right Hip to Toe 04/23/2015 10:50 [facility]. | | | [facility] 04/13/2015 | | | [...] | not stated as uncontrolled 04/10/2015 14:37 [facility] | | | [facility] Emergency -Surgical or [...] --------- 1 0 | | | [facility] 2 | | | 0 [facility] 15 | | | 0 [facility] 18 | | | 0 Total Note: Visits indicate total | | | known visits. Medicaid [place] Dx are the number of primary diagnoses on | | | the [facility]'s non-emergent dx list. | | | | | | --- SYLVIE has no Care Guidelines for this patient. [place] | | | Prescription Review PDMP Report [...]
--- OUTSIDE RECORDS SUMMARY | ~2019-10-10 | XMS | Encounter Summary ---
Demographics + + + | Address | [address] | | | [place] [address] | + + + | Home Phone [...] Providers + +------+ + | Care Wood Carving Lathe Operator Name | Role | Phone | + +------+ + | Miquel Calhoun MD | PCP | | + +------+ + Encounter Details +--------+ + + + + | Date | Type | Department | Care Team | Description | +--------+ + + + + | 09/17/ | Telephone | [facility] | Khushbu Cortez, | | | 2012 | | [facility] | ORDER WORKER [place], [place] | | | | | [address] | [address] | | | | | Alexandria Chamorro | | | | | | Bandar/[id number] [facility] | | | | | | [facility] | | | | | | [place] [address] | | | | | | [phone] | | | +--------+ + + + [...]
--- OUTSIDE RECORDS SUMMARY | ~2019-10-10 | XMS | Encounter Summary ---
Demographics + + + | Address | [address] | | | [place] [address] | + + + | Home Phone | | + + + | Preferred Language | Unknown | + + + | Marital Status | | + + + | Presybeterian Affiliation | 1013 | + + + | Race | Unknown | + + + | Ethnic Group | Unknown | + + + Author + + + | Author | [facility] | | | and Priteshana | + + + | Organization | [facility] | | | and [place] | + + + | Address | Unknown | + + + | Phone | Unavailable | + + + Support + + +---------+ + | Name | Relationship | Address | Phone | + + +---------+ + | Giusepep Menchaca | ECON | Unknown | | + + +---------+ + | Nathalia Js | ECON | Unknown | | + + +---------+ + Care Team Providers + +------+ + | Care Field Logistics Coordinator Name | Role | Phone | + +------+ + | Wendi Akien | PCP | | + +------+ + Encounter Details +--------+ + + + + | Date | Type | Department | Care Team | Description | +--------+ + + + + | 04/07/ | Imaging | [facility] | Provider, | | | 2018 | Exam | MED CTR EXTERNAL | MD [address] | | | | | IMAGING | [place] | | | | | [phone] | [place] [address] | | +--------+ + + + + [...] | | | | | | [facility] [facility] [place] | | | | | | [id number] | | | | | | | [...]
--- OUTSIDE RECORDS SUMMARY | ~2019-10-10 | XMS | Encounter Summary ---
Demographics + + + | Address | [address] | | | [place] [address] | + + + | Home Phone [...] Providers + +------+ + | Care Manager Of International Name | Role | Phone | + +------+ + | Wendi Aiken | PCP | | + +------+ + Encounter Details +--------+ + + + + | Date | Type | Department | Care Team | Description | +--------+ + + + + | 05/10/ | Imaging | [facility] | Provider, | | | 2018 | Exam | MED CTR EXTERNAL | MD [address] | | | | | IMAGING | [place] | | | | | [phone] | [place] [address] | | +--------+ + + + + [...] | | | | | | [address] | | | | | | [address] | | | | | | | [...]
--- OUTSIDE RECORDS SUMMARY | ~2019-10-10 | XMS | Encounter Summary ---
Demographics + + + | Address | [address] | | | [place] [address] | + + + | Home Phone [...] Providers + +------+ + | Care Process Improvement Consultant Name | Role | Phone | [...] | | 2016 | Encounter | at [facility] [address] | [address] [address] [facility] | | | | | [place] Mailcode: | [facility] [address] [place], | | | | | [address] | [place] [address] | | | | | Health and Healing, | [phone] | | | | | [facility] | | | | | | Floor [place], [place] | | | | | | [address] | | | | | | [phone] | | | +--------+ + + + [...]
--- OUTSIDE RECORDS SUMMARY | ~2019-10-10 | XMS | Encounter Summary ---
Demographics + + + | Address | [address] | | | [place] [address] | + + + | Home Phone [...] Team Providers + +------+ + | Care Coat Presser Name | Role | Phone | + +------+ + PCP | Unavailable | + +------+ + Encounter Details +--------+ + + + + | Date | Type | Department | Care Team | Description | +--------+ + + + + | 09/22/ | Hospital | [facility] | Shay Dietz | | | 2010 | Encounter | MED CTR XRAY [address] | [address], [address] | | | | | [place] | [address] [place], [place] | | | | | [place] [address] | [address] | | | | | [phone] | | | +--------+ + + + [...] [place] | | | | | | [address] | | | | | | | [...] Performed At | + + + | [facility] Diagnostic Imaging Department | [facility] | | [address] [facility] | [facility] | | LUMBAR FACET INJECTIONS, | DIAG [...] Transcribed Date/Time: | | | 09/22/2011 18:07 Occupational Health Rn: <Electronically Signed | | | by Shay Dietz MD> 09/27/11 1035 | | + + + + + | Procedure Note | + + | Junior, Rad Conversion - 12/07/2013 4:17 PM [facility] | | Diagnostic Imaging Department [address] [place] [address] | | LUMBAR FACET INJECTIONS, 09/22/2011 CLINICAL [...] 17:09 | |Transcribed Date/Time: 09/22/2011 18:07 | |Occupational Health Rn: | |<Electronically Signed by Shay Dietz MD> [...]
--- OUTSIDE RECORDS SUMMARY | ~2019-10-10 | XMS | Encounter Summary ---
Demographics + + + | Address | [address] | | | [place] [address] | + + + | Home Phone [...] Team Providers + +------+ + | Care Occupational Therapy Asst Name | Role | Phone | + [...]
--- OUTSIDE RECORDS SUMMARY | ~2019-10-10 | XMS | Encounter Summary ---
Demographics + + + | Address | [address] | | | [place] [address] | + + + | Home Phone [...] Team Providers + +------+ + | Care Master Naval Parachutist Name | Role | Phone | + [...] | | Services | | Foraminal | Catrachowicz, | Darrin | | | Required | | stenosis of | Yaneli, | Franki, PA-C | | | | | lumbar | PA-C [address] | [address] | | | | | region | [address] | AV [place], | | | | | Chronic low | [place], [place] | [place] [address] | | | | | back pain | [address] | Phone: | | | | | Facet | Phone: | [phone] | | | | | arthritis of | [phone] | Fax: | | | | | lumbar | Fax: | [phone] | | | | | region | [phone] | | | | | | Scoliosis [...] | | | | | | [place] OFFICE | | | | | | [...] Orders Only | [facility] [place] | Bogdanowicz, | 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
--- OUTSIDE RECORDS SUMMARY | ~2019-10-10 | XMS | Encounter Summary ---
Demographics + + + | Address | [address] | | | [place] [address] | + + + | Home Phone [...] Team Providers + +------+ + | Care Border Police Name | Role | Phone | + [...] | | | | spine Facet | [address] | | | | | | arthritis | [address] | | | | | | of lumbar | [place] | | | | | | region | [address] | | | | | | | Phone: | | | | | | | [phone] | | | | | | | Fax: | | | | | | | [phone] | | +--------+ + + + + + Reason for Visit + + + | Reason | Comments | + + + | Follow-up | MRI f/u | + + + Encounter Details +--------+---------+ + + + | Date | Type | Department | Care Team | Description | +--------+---------+ + + + | 09/10/ | [facility] | [facility] | Darrin Hoyos | Scoliosis of lumbar | | 2013 | Visit | NEUROSURGERY [address] | [address] | spine (Primary Dx); | | | | [address] | [address] | Facet arthritis of | | | | [place], [place] | [place] [address] | lumbar region | | | | [address] | [phone] | | | | | [phone] | | | +--------+---------+ + + + [...] t from the original. PEE Vang [address] [facility], [address] [place], [place] [id number] FAX: NEUROSURGERY HISTORY AND PHYSICAL EXAMINATION CHIEF [...] symptoms. She has evidently a also s een a surgeon in [facility] he stated she did not need to have surgery according to her repo rt. She also reports she had a recent MRI in the [facility] which I do not have [...] has no apparent deficits with short or [facility] memory. CRANIAL NERVES: II: Acuity is intact. [...] Intrinsics 5 4 Ulnar Intrinsics 5 4 Pilot Safety Inspector Strength 5 4 Hip Flexion 5 4 [...] her low back and her left leg yessiac n. We will get this appointment set up in the near future to discuss her options I spent 25 minutes in visit with Kori Harshal Rubio and her friend today with the [...] [place] | | | | | | [address] | | | | | | | [...]
--- OUTSIDE RECORDS SUMMARY | ~2019-10-10 | XMS | Encounter Summary ---
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 For all procedur es it is recommended that someone else drive you home. 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 She has appropriate fund of [...] along with flexion/extension xray's perf ormed in [place] last week. I will request for these [...] [place] | | | | | | [address] | | | | | | | [...] presents to the fluoroscopy suite for a [facility] | | fluoroscopically-guided left L5-S1 transforaminal [...] + + | Performing | Address | City[facility] | Phone Number | | Organization | | | | + + + + + | [facility] | [address] | [place] | [phone] | | [facility] | | [address] | | | - IMAGING | | [...]
--- OUTSIDE RECORDS SUMMARY | ~2019-10-10 | XMS | Encounter Summary ---
Demographics + + + | Address | [address] | | | [place] [address] | + + + | Home Phone [...] + +------+ + | Care Sales Order Clerk Name | Role | Phone | [...] Provider Unknown | | | | | [place], [place] | | | | | | [address] | (Fax) | | | | | [phone] | | | +--------+ + + + [...] [place] | | | | | | [address] | | | | | | | [...] Results MRI Lumbar Spine wo Contrast (04/05/2018 2:55 AM PDT) + + | Specimen [...]
--- OUTSIDE RECORDS SUMMARY | ~2019-10-10 | XMS | Encounter Summary ---
Demographics + + + | Address | [address] | | | [place] [address] | + + + | Home Phone [...] Team Providers + +------+ + | Care Solution Engineer Name | Role | Phone | + +------+ + PCP | Unavailable | + +------+ + Encounter Details +--------+ + + + + | Date | Type | Department | Care Team | Description | +--------+ + + + + | /10/ | Orders Only | [facility] [place] | Shay Dietz | Back pain (Primary | | 2012 | | PHYSIATRY [address] | [address] | Dx) | | | | [employer] [place], | [place] | | | | | [place] [address] | [address] | | | | | [phone] | | | +--------+ + + + [...] [place] | | | | | | [facility] [place] | | | | | | [address] | | | | | | | | +--------+---------+ + + + documented as of this encounter Visit Diagnoses + + | Diagnosis | + + | Back pain - Primary Backache, unspecified | + + documented in this encounter"
--- OUTSIDE RECORDS SUMMARY | ~2019-10-10 | XMS | Encounter Summary ---
Demographics + + + | Address | [address] | | | [place] [address] | + + + | Home Phone [...] Team Providers + +------+ + | Care Family Worker Name | Role | Phone | [...]
--- OUTSIDE RECORDS SUMMARY | ~2019-10-10 | XMS | Encounter Summary ---
Demographics + + + | Address | [address] | | | [place] [address] | + + + | Home Phone [...] Team Providers + +------+ + | Care Performance Analyst Name | Role | Phone | + +------+ + | Miquel Calhoun MD | PCP | | + +------+ + Encounter Details +--------+ + + + + | Date | Type | Department | Care Team | Description | +--------+ + + + + | 10/18/ | Hospital | [facility] | Shay Dietz | | | 2012 | Encounter | MED CTR XRAY [address] | [address] | | | | | [place] | [facility], [place] | | | | | [place] [address] | [address] | | | | | [phone] | | | +--------+ + + + [...] [place] | | | | | | [address] | | | | | | | [...] At | + + + | [facility] Diagnostic Imaging | [facility] | | Department [address] [facility], [place] | [facility] | | [ rep [address]] [ rep [facility] | | st zip] Signed | - IMAGING | | | | | Patient Name: KORI HARMON | | | Physician: OMID : [id number] Age: 68 Sex: F Unit | | | #: [id number] Exam Date: 10/18/13 Location: | | | IMG.INV Report #: [id number] Page: | | | %(RAD)RES..mtdd.print.filter("pg") of %(RAD) | | | RES..mtdd.print.filter("tpg") | | | | | | Accession Number: [id number] | | | LUMBAR MEDIAL BRANCH BLOCKS, [...] Transcribed Date/Time: | | | 10/18/2013 19:14 Production Recorder: | | | <<Signature on File>> | | | Shay Mukherjee | | | MD J Luis10/22/13 0756 <Electronically signed by Shay Mukherjee | | | J Luis SALGADO> Shay Dietz MD 10/18/13 4360 | | | Production Recorder: Yudelka [id number]/19/13 0754 | | | PROVIDER,UNKNOWN | | + + + + + + + + | Performing | Address | City/State/Zipcode | Phone Number | | Organization | | | | + + + + + | [facility] | [address] | [place] | [phone] | | [facility] | | [address] | | | - IMAGING | | | | + + + + + documented in this encounter Visit Diagnoses Not on filedocumented in this encounter
--- OUTSIDE RECORDS SUMMARY | ~2019-10-10 | XMS | Encounter Summary ---
Demographics + + + | Address | [address] | | | [place] [address] | + + + | Home Phone [...] Team Providers + +------+ + | Care Cashier Receptionist Name | Role | Phone | + [...] | 2016 | | at [facility] [address] | [address] | new pt appt) | | | | [place] Mailcode: | [address] [facility] | | | | | [address] | [place] [address] | | | | | Health and Healing, | [phone] | | | | | [facility] | | | | | | Floor [place], [place] | | | | | | [address] | | | | | | [phone] | | | +--------+ + + + [...]
--- OUTSIDE RECORDS SUMMARY | ~2019-10-10 | XMS | Encounter Summary ---
Demographics + + + | Address | [address] | | | [place] [address] | + + + | Home Phone [...] Providers + +------+ + | Care Clinical Education Coordinator Name | Role | Phone | + +------+ + PCP | Unavailable | + +------+ + Encounter Details +--------+ + + + + | Date | Type | Department | Care Team | Description | +--------+ + + + + | 09/07/ | Hospital | [facility] | | | | 1998 - | Encounter | MED CTR CANCER | | | | | | [place] | | | | 10/30/ | | [place] | | | | 1998 | | [address] | | | | | | [phone] | | | +--------+ + + + [...] [place] | | | | | | [address] | | | | | | | | +--------+---------+ + + + documented as of this encounter Visit Diagnoses Not on filedocumented in this encounter"
--- OUTSIDE RECORDS SUMMARY | ~2019-10-10 | XMS | Encounter Summary ---
Demographics + + + | Address | [address] | | | [place] [address] | + + + | Home Phone [...] Team Providers + +------+ + | Care Farm Crops Teacher Name | Role | Phone | [...] [address] | Dx) | | | | [place], | [place] | | | | | [place] [address] | [address] | | | | | [phone] | | | +--------+ + + + [...] | | | | | | [facility] [place] | | | | | | [address] | | | | | | | | +--------+---------+ + + + documented as of this encounter Visit Diagnoses + + | Diagnosis | + + | Back pain - Primary Backache, unspecified | + + documented in this encounter"
--- OUTSIDE RECORDS SUMMARY | ~2019-10-10 | XMS | Encounter Summary ---
Demographics + + + | Address | [address] | | | [place] [address] | + + + | Home Phone [...] Team Providers + +------+ + | Care Factory Helper Name | Role | Phone | [...] LAMINOTOMY THORACIC | | 2019 | | [facility] | [address] | / LUMBAR W/ | | | | OPERATING ROOM [address] | [place] | PLACEMENT SPINAL | | | | [address] | [place] [address] | CORD STIMULATOR | | | | [place] | [phone] | | | | | [address] | | | | | | [phone] | | | +--------+---------+ + + + [...] note might be different from logan phillips. [facility]. 08/04/2019 DISCHARGE SUMMARY PATIENT NAME: [...] by elevating your feet Date Last Reviewed: 9176-2834 [employer]. [address] [place] [address]. All righ ts reserved. This information is not intended as a substitute for professional medical care. Always follow your healthcare professional's instructions. Acetaminophen; Hydrocodone tablets or capsules Brand Names: Anexsia, Lorcet, Lorcet HD, Lorcet Plus, Lortab, [place], Verdrocet, Vicodin, Vi codin ES, Vicodin HP, [...] information carefully each time. Talk to your textile engineer regarding the use of this medicine in children. Special care may be needed. What side effects may I notice from receiving this medicine? Side effects that you should report to your doctor or health wound care coordinator as soon as p ossible: allergic reactions [...] attention (report to your doctor or health wound care coordinator if they continue or are bothersome): constipation [...] official disposal site. Contact the [facility] at [phone] or your [facility] to find a site. If you [...] this medicine? Tell your doctor or health wound care coordinator if your pain does not go away, [...] Decreased | | | | | | correction current | Responsiveness (May | | | [...] Faria MSW - 08/04/2019 2:12 PM PDTCase survey research manager sent out Home Health order to [...] reflux disease Acute renal failure ([facility]) April 2013 Adverse effect of anesthesia hx hallucinations after anesthesia x 3 yrs ago. Anesthesia hallucinated after bladder repair Arthralgia Arthritis Asthma Asthma Back pain Cancer ([facility]) 2004 breast Cataract Cerebrovascular accident (CVA) ([facility]) no per pt Chronic back pain Chronic back pain Chronic constipation Concussion 07/2015 Preceeded by seizure Constipation COPD (chronic obstructive pulmonary disease) ([facility]) Degenerative disc disease Depression Depression Diabetes mellitus ([facility]) Diabetes mellitus, type 2 ([facility]) diet controlled Diabetes type 2, controlled ([facility]) diet controlled Diarrhea Disorder of thyroid Diverticulosis [...] 100 mg Oral BID PRN Julien Guzman POLICY LOAN CALCULATOR HYDROcodone-acetaminophen (NORCO) 10-325 mg per tablet 1 tablet 1 tablet Oral Q4H PRN Julien Guzman, POLICY LOAN CALCULATOR 1 tablet at 08/04/19 0502 HYDROmorphone (DILAUDID) injection 0.2-0.4 mg 0.2-0.4 mg Intravenous Q1H PRN Maykel ortiz MD 0.2 mg at 08/03/19 1700 methocarbamol (ROBAXIN) tablet 1,500 mg 1,500 mg Oral Q6H PRN RENATO DavisP ondansetron (ZOFRAN ODT) disintegrating tablet 4 mg 4 mg Oral Q6H PRN Julien Guzman POLICY LOAN CALCULATOR rOPINIRole (REQUIP) tablet 4 mg 4 mg Oral 4x Daily PRN Maykel Hutchins MD senna (SENOKOT) tablet 8.6 mg 8.6 mg Oral BID PRN Julien Guzman POLICY LOAN CALCULATOR sodium chloride 0.45% (1/2 NS) infusion Intravenous Continuous Maykel Hutchins MD 100 mL /hr at 08/03/19 1342 950 mL at 08/03/19 1342 sodium chloride 0.45% (1/2 NS) infusion Intravenous Continuous Julien Guzman POLICY LOAN CALCULATOR 100 m L/hr at 08/04/19 0057 Allergies [...] [place] | | | | | | [address] | | | | | | | [...] | | | Needs | | | HOOP BENDER TANK | | | reques | | | [...] | | | POC | performed at [facility];888 | | LABORATORY | | | | [address];[place], [place] | | | | | | [address] | | | | + + + + + + + + | Specimen | + + | | + + + + + + + | Performing | Address | City/State/Zipcode | Phone Number | | Organization | | | | + + + + + | [facility] | [address] | [place] [address] | [phone] | + + + + + POC Glucose (08/03/2019 4:15 PM PDT) + + + + + + | Component | Value | Ref Range | Performed | Pathologist | | | | | At | Signature | + + + + + + | Glucose, | 99Comment: Testing | 65 - 99 mg/dL | [facility] | | | POC | performed at [facility];[address] | | LABORATORY | | | | [address];[place] | | | | | | [address] | | | | + + + + + + + + | Specimen | + + | | + + + + + + + | Performing | Address | City/State/Zipcode | Phone Number | | Organization | | | | + + + + + | [facility] | [address] | [place] [address] | [phone] | + + + + + POC [...] | | | POC | performed at [facility];[address] | | LABORATORY | | | | [address];[place], [place] | | | | | | [address] | | | | + + + + + + + + | Specimen | + + | | + + + + + + + | Performing | Address | City/State/Zipcode | Phone Number | | Organization | | | | + + + + + | [facility] | [address] | [place] [address] | [phone] | + + + + + POC [...] | | | POC | performed at [facility];[address] | | LABORATORY | | | | [address];[place] | | | | | | [address] | | | | + + + + + + + + | Specimen | + + | | + + + + + + + | Performing | Address | City/State/Zipcode | Phone Number | | Organization | | | | + + + + + | [facility] | [address] [facility] | [place] [address] | [phone] | + + + + + [place] [...] | | | POC | performed at [facility];888 | | LABORATORY | | | | [address];[place] | | | | | | [address] | | | | + + + + + + + + | Specimen | + + | | + + + + + + + | Performing | Address | City/State/Zipcode | Phone Number | | Organization | | | | + + + + + | [facility] | [address] | [place] [address] | [phone] | + + + + + POC Glucose (08/03/2019 9:14 AM PDT) + + + + + + | Component | Value | Ref Range | Performed | Pathologist | | | | | At | Signature | + + + + + + | Glucose, | 80Comment: Testing | 65 - 99 mg/dL | [facility] | | | POC | performed at [facility];[address] | | LABORATORY | | | | [address];[place] | | | | | | [address] | | | | + + + + + + + + | Specimen | + + | | + + + + + + + | Performing | Address | City/State/Zipcode | Phone Number | | Organization | | | | + + + + + | [facility] | [address] | [place] [address] | [phone] | + + + + + Type [...] + + + | BB BAND | [id number] | | [facility] | | | | | | LABORATORY | | + + + + + + | BB BAND | Testing performed at | | [facility] | | | | [facility];[address] | | LABORATORY | | | | [address];[place] [address] | | | | + + + + + + + + | Specimen | + + | Blood | + + + + + + + | Performing | Address | City/State/Zipcode | Phone Number | | Organization | | | | + + + + + | [facility] | [address] | [place] [address] | [phone] | + + + + + POC Glucose (08/03/2019 7:23 AM PDT) + + + + + + | Component | Value | Ref Range | Performed | Pathologist | | | | | At | Signature | + + + + + + | Glucose, | 77Comment: Testing | 65 - 99 mg/dL | [facility] | | | POC | performed at [facility];[address] | | LABORATORY | | | | [address];[place], [place] | | | | | | [address] | | | | + + + + + + + + | Specimen | + + | | + + + + + + + | Performing | Address | City/State/Zipcode | Phone Number | | Organization | | | | + + + + + | [facility] | [address] | [place] [address] | [phone] | + + + + + documented [...] | | | | | | | [facility] 08/03/19 at 1007, Intra-op | | | [...]
--- OUTSIDE RECORDS SUMMARY | ~2019-10-10 | XMS | Encounter Summary ---
Demographics + + + | Address | [address] | | | [place] [address] | + + + | Home Phone [...] Team Providers + +------+ + | Care Custom Framing Specialist Name | Role | Phone | [...] pain log reponse) | | | | [place] [address], | [address] [place] | | | | | [place] [address] | [address] | | | | | [phone] | | | +--------+ + + + [...] [place] | | | | | | [address] | | | | | | | | +--------+---------+ + + + documented as of this encounter Visit Diagnoses Not on filedocumented in this encounter"
--- OUTSIDE RECORDS SUMMARY | ~2019-10-10 | XMS | Encounter Summary ---
Demographics + + + | Address | [address] | | | [place] [address] | + + + | Home Phone [...] Team Providers + +------+ + | Care Subassembler Name | Role | Phone | + [...] + + | 04/17/ | Telephone | [facility] | Nick Martinez, | Other (Back Brace) | | 2017 | | PHYSIATRY [address] | PA-C [address] | | | | | [place], | [address] [place] | | | | | [place] [address] | [place] [address] | | | | | [phone] | [phone] | | | | | | | [...] [place] | | | | | | [address] | | | | | | | | +--------+---------+ + + + documented as of this encounter Visit Diagnoses Not on filedocumented in this encounter"
--- OUTSIDE RECORDS SUMMARY | ~2019-10-10 | XMS | Encounter Summary ---
Demographics + + + | Address | [address] | | | [place] [address] | + + + | Home Phone [...] Team Providers + +------+ + | Care Picker Box Operator Name | Role | Phone | [...] [address] | | | | | [place], | [address] [place], [place] | | | | | [place] [address] | [address] | | | | | [phone] | | | +--------+ + + + [...] [place] | | | | | | [address] | | | | | | | | +--------+---------+ + + + documented as of this encounter Visit Diagnoses Not on filedocumented in this encounter"
--- OUTSIDE RECORDS SUMMARY | ~2019-10-10 | XMS | Encounter Summary ---
Demographics + + + | Address | [address] | | | [place] [address] | + + + | Home Phone [...] Providers + +------+ + | Care Commercial Correspondent Name | Role | Phone | + +------+ + | Wendi Aiken | PCP | | + +------+ + Encounter Details +--------+ + + + + | Date | Type | Department | Care Team | Description | +--------+ + + + + | 06/13/ | Hospital | [facility] | SonjaAlfredo DO | Closed compression | | 2018 | Encounter | MEDICAL CENTER | [address] | fracture of fifth | | | | CLINICAL DECISION | [place] [address] | lumbar vertebra, | | | | [address] | [phone] | initial encounter | | | | [place], [place] | | ([facility]) | | | | [address] | | | | | | [phone] | | | +--------+ + + + [...] 06/13/181408 Date of Service: 06/13/181408 Status: Signed Director Mortgage: Cristiane Araujo RN (Registered Nurse) Pt discharge [...] Surgery Author Type: Registered Nurse Filed: 06/13/18 1004 Date of Service: 06/13/18 100 Status: Signed Director Mortgage: Kiya Dietrich RN (Registered Nurse) Report given [...] [place] | | | | | | [id number] | | | | | | | [...] | | Fingerstick | performed at [facility];[address] | | LAB | | | | [address];[place] | | | | | | [address] | | | | + + + [...]
--- OUTSIDE RECORDS SUMMARY | ~2019-10-10 | XMS | Encounter Summary ---
Demographics + + + | Address | [address] | | | [place] [address] | + + + | Home Phone [...] Team Providers + +------+ + | Care Behavior Therapist Name | Role | Phone | [...] | | | stenosis | B | [address] | | | | | | [place], [place] | Phone: | | | | | | [address] | [phone] | | | | | | Phone: | Fax: | | | | | | [phone] | [phone] | | | | | | Fax: | | | | | | | [phone] | | + +--------+ + + + + Encounter Details +--------+---------+ + + + | Date | Type | Department | Care Team | Description | +--------+---------+ + + + | 07/18/ | Office | [facility] | Denys Sibley, | Lumbar region | | 2018 | Visit | [facility] | DO [address] | somatic dysfunction | | | | [address]OLOGY [address] [place] | (Primary Dx); | | | | [address] [place] [address] | [address] | Intractable back | | | | [place] | | pain; Encounter for | | | | [address] | | long-term use of | | | | [phone] | | opiate analgesic; | | | [...] Medical History: Diagnosis Date Acute renal failure ([facility]) April 2013 Anesthesia hallucinated after bladder repair Arthralgia Asthma Asthma Cancer ([facility]) 2004 breast Cerebrovascular accident (CVA) ([facility] [...] physical therapy, mass age therapy, acupuncture, care rep, along with recommended psychological counseling , either privately, or in group sessions offered by private care individuals, community serv ices, or baptist organizations. Appropriate referrals were made at patient [...] return to office in 4 weeks, [facility] was consulted and appears appropriate, Urine Toxicology [...] and complications with the passage of time. 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
--- OUTSIDE RECORDS SUMMARY | ~2019-10-10 | XMS | Encounter Summary ---
Demographics + + + | Address | [address] | | | [place] [address] | + + + | Home Phone [...] Team Providers + +------+ + | Care Teaching Young Name | Role | Phone | + +------+ + PCP | Unavailable | + +------+ + Encounter Details +--------+ + + + + | Date | Type | Department | Care Team | Description | +--------+ + + + + | 09/07/ | Hospital | [facility] | | | | 1998 - | Encounter | [facility] | | | | | | [place] | | | | 10/30/ | | [place] | | | | 1996 | | [address] | | | | | | [phone] | | | +--------+ + + + [...] [place] | | | | | | [address] | | | | | | | | +--------+---------+ + + + documented as of this encounter Visit Diagnoses Not on filedocumented in this encounter"
--- OUTSIDE RECORDS SUMMARY | ~2019-10-10 | XMS | Encounter Summary ---
Demographics + + + | Address | [address] | | | [place] [address] | + + + | Home Phone [...] Team Providers + +------+ + | Care Wind Turbine Technician Name | Role | Phone | [...] Provider Unknown | | | | | [place], [place] | | | | | | [address] | (Fax) | | | | | [phone] | | | +--------+ + + + [...] [place] | | | | | | [address] | | | | | | | [...] | Procedure Note | + + | eRji Pacheco - 06/13/2019 8:20 AM PDT This is a non-reportable procedure | | without a radiologist report and isused for image storage only | + + documented in this encounter Visit Diagnoses + + | Diagnosis | + + | Pain Generalized pain | + + documented in this encounter"
--- OUTSIDE RECORDS SUMMARY | ~2019-10-10 | XMS | Encounter Summary ---
Demographics + + + | Address | [address] | | | [place] [address] | + + + | Home Phone [...] Team Providers + +------+ + | Care Glass Or Mirror Inspector Name | Role | Phone | + +------+ + | Romy De La Paz MD | PCP | | + +------+ + Encounter Details +--------+ + + + + | Date | Type | Department | Care Team | Description | +--------+ + + + + | 10/18/ | Telephone | [facility] | Shya Dietz | | | 2012 | | MEDICINE [address] | MD Lonny [address] | | | | | [address] [facility] | [place], [place] | | | | | [place] [address] | [address] | | | | | [phone] | | | +--------+ + + + [...] [place] | | | | | | [address] | | | | | | | | +--------+---------+ + + + documented as of this encounter Visit Diagnoses Not on filedocumented in this encounter"
--- OUTSIDE RECORDS SUMMARY | ~2019-10-10 | XMS | Encounter Summary ---
Demographics + + + | Address | [address] | | | [place] [address] | + + + | Home Phone [...] Team Providers + +------+ + | Care Homicide Squad Captain Name | Role | Phone | [...] | | | | | bilateral | [place], [place] | | | | | | low back | [address] | | | | | | pain with | Phone: | | | | | | right-sided | [phone] | | | | | | sciatica | Fax: | | | | | | | [phone] | | + + + + + [...] | | | | | | | NV SURG | | | | | | | IMPLNT | | | | | | | NEUROELECT,E | | | | | | | PIDURAL NV | | | | | | | IMPLANT | | | | | | | NEUROSTIM/RE | | | | | | | CEIVER NV | | | | | | | [...] + + | 08/03/ | Hospital | [facility] | Maykel Hutchins MD | BACK PAIN, LUMBAR | | 2019 - | Encounter | [facility] | [address] | (Primary Dx); | | | | CARE FLOOR [address] | [place], | Chronic bilateral | | 08/04/ | [address] | [place] [address] | low back pain with | | 2019 | | [place] | [phone] | right-sided sciatica | | | | [address] | | | | | | [phone] | | | +--------+ + + + [...] note might be different from logan phillips. [facility]. 08/04/2019 DISCHARGE SUMMARY PATIENT NAME: Kori [...] by elevating your feet Date Last Reviewed: 1427-9474 [employer]. [address] [place] [address], [place] [address]. All righ ts reserved. This information is not intended as a substitute for professional medical care. Always follow your healthcare professional's instructions. Acetaminophen; Hydrocodone tablets or capsules Brand Names: Anexsia, Lorcet, Lorcet HD, Lorcet Plus, Lortab, [place], Verdrocet, Vicodin, Vi codin ES, Vicodin HP, [...] information carefully each time. Talk to your automatic beading lathe operator regarding the use of this medicine in children. Special care may be needed. What side effects may I notice from receiving this medicine? Side effects that you should report to your doctor or health auto care center manager as soon as p ossible: allergic reactions [...] attention (report to your doctor or health auto care center manager if they continue or are bothersome): constipation [...] to an official disposal site. Contact the [facility] at [phone] or your [facility] to find a site. If you [...] this medicine? Tell your doctor or health auto care center manager if your pain does not go away, [...] pharmacist, or health care provider. Copyright 2019 [employer] documented in this encounter Medications at Time [...] Faria MSW - 08/04/2019 2:12 PM PDTCase senior manager creative services sent out Home Health order to Kadi [...] her up today to go home to [facility]. Past Medical History: Diagnosis Date Acid [...] 100 mg Oral BID PRN Julien Ang, DIRECTOR TELEVISION HYDROcodone-acetaminophen (NORCO) 10-325 mg per tablet 1 tablet 1 tablet Oral Q4H PRN Julien Ang, DIRECTOR TELEVISION 1 tablet at 08/04/19 0502 HYDROmorphone (DILAUDID) injection 0.2-0.4 mg 0.2-0.4 mg Intravenous Q1H PRN Maykel ortiz MD 0.2 mg at 08/03/19 1700 methocarbamol (ROBAXIN) tablet 1,500 mg 1,500 mg Oral Q6H PRN Julien Guzman, DIRECTOR TELEVISION ondansetron (ZOFRAN ODT) disintegrating tablet 4 mg 4 mg Oral Q6H PRN Julien Guzman, DIRECTOR TELEVISION rOPINIRole (REQUIP) tablet 4 mg 4 mg Oral 4x Daily PRN Maykel Hutchins MD senna (SENOKOT) tablet 8.6 mg 8.6 mg Oral BID PRN Julien Guzman, DIRECTOR TELEVISION sodium chloride 0.45% (1/2 NS) infusion Intravenous Continuous Maykel Hutchins MD 100 mL /hr at 08/03/19 1342 950 mL at 08/03/19 1342 sodium chloride 0.45% (1/2 NS) infusion Intravenous Continuous Julien Guzman, DIRECTOR TELEVISION 100 m L/hr at 08/04/19 0057 Allergies [...] [place] | | | | | | [address] | | | | | | | [...] | | | Needs | | | SALES HUNTER | | | reques | | | [...] | | | POC | performed at [facility];8 | | LABORATORY | | | | [address];[place], [place] | | | | | | [address] | | | | + + + + + + + + | Specimen | + + | | + + + + + + + | Performing | Address | City/State/Zipcode | Phone Number | | Organization | | | | + + + + + | [facility] | [address] | [place] [address] | [phone] | + + + + + POC Glucose (08/03/2019 4:15 PM PDT) + + + + + + | Component | Value | Ref Range | Performed | Pathologist | | | | | At | Signature | + + + + + + | Glucose, | 99Comment: Testing | 65 - 99 mg/dL | [facility] | | | POC | performed at [facility];[address] | | LABORATORY | | | | [address];[place] | | | | | | [address] | | | | + + + + + + + + | Specimen | + + | | + + + + + + + | Performing | Address | City/State/Zipcode | Phone Number | | Organization | | | | + + + + + | [facility] | [address] | [place] [address] | [phone] | + + + + + POC [...] | | | POC | performed at [facility];[address] | | LABORATORY | | | | [address];[place] | | | | | | [address] | | | | + + + + + + + + | Specimen | + + | | + + + + + + + | Performing | Address | City/State/Zipcode | Phone Number | | Organization | | | | + + + + + | [facility] | [address] | [place] [address] | [phone] | + + + + + POC Glucose (08/03/2019 11:05 AM PDT) + + + + + + | Component | Value | Ref Range | Performed | Pathologist | | | | | At | Signature | + + + + + + | Glucose, | 108 (H)Comment: Testing | 65 - 99 mg/dL | [facility] | | | POC | performed at [facility];[address] | | LABORATORY | | | | [address];[place] | | | | | | [address] | | | | + + + + + + + + | Specimen | + + | | + + + + + + + | Performing | Address | City/State/Zipcode | Phone Number | | Organization | | | | + + + + + | [facility] | [address] | [place] [address] | [phone] | + + + + + [place] [...] | | | POC | performed at [facility];[address] | | LABORATORY | | | | [address];[place] | | | | | | [address] | | | | + + + + + + + + | Specimen | + + | | + + + + + + + | Performing | Address | City/State/Zipcode | Phone Number | | Organization | | | | + + + + + | [facility] | [address] | [place] [address] | [phone] | + + + + + POC Glucose (08/03/2019 9:14 AM PDT) + + + + + + | Component | Value | Ref Range | Performed | Pathologist | | | | | At | Signature | + + + + + + | Glucose, | 80Comment: Testing | 65 - 99 mg/dL | [facility] | | | POC | performed at [facility];[address] | | LABORATORY | | | | [address];[place] | | | | | | [address] | | | | + + + + + + + + | Specimen | + + | | + + + + + + + | Performing | Address | City/State/Zipcode | Phone Number | | Organization | | | | + + + + + | [facility] | [address] | [place] [address] | [phone] | + + + + + Type [...] + + + | BB BAND | [id number] | | [facility] | | | | | | LABORATORY | | + + + + + + | BB BAND | Testing performed at | | [facility] | | | | [facility];[address] | | LABORATORY | | | | [address];[place] [address] | | | | + + + + + + + + | Specimen | + + | Blood | + + + + + + + | Performing | Address | City/State/Zipcode | Phone Number | | Organization | | | | + + + + + | [facility] | [address] | [place] [address] | [phone] | + + + + + POC Glucose (08/03/2019 7:23 AM PDT) + + + + + + | Component | Value | Ref Range | Performed | Pathologist | | | | | At | Signature | + + + + + + | Glucose, | 77Comment: Testing | 65 - 99 mg/dL | [facility] | | | POC | performed at [facility];[address] | | LABORATORY | | | | [address];[place], [place] | | | | | | [address] | | | | + + + + + + + + | Specimen | + + | | + + + + + + + | Performing | Address | City/State/Zipcode | Phone Number | | Organization | | | | + + + + + | [facility] | [address] | [place] [address] | [phone] | + + + + + documented [...] | | | | | | longer, agfljq-ebc-ytrpt use of | | | | | [...] | | | | | | | khvmbw-wmc-ajenw use of at least | | | [...]
--- OUTSIDE RECORDS SUMMARY | ~2019-10-10 | XMS | Encounter Summary ---
Demographics + + + | Address | [address] | | | [place] [address] | + + + | Home Phone | | + + + | Preferred Language | Unknown | + + + | Marital Status | | + + + | Anabaptist Affiliation | 1013 | + + + | Race | Unknown | + + + | Ethnic Group | Unknown | + + + Author + + + | Author | [facility] | | | and Priteshana | + + + | Organization | [facility] | | [...] Providers + +------+ + | Care Instrument Processing Tech Name | Role | Phone | + +------+ + | Oxana Nye | PCP | | + +------+ + Encounter Details +--------+ + + + + | Date | Type | Department | Care Team | Description | +--------+ + + + + | 07/06/ | Hospital | [facility] | Sp[place], | 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 | MED CTR XRAY [address] | [address] | lumbar region | | | | [place] | [address] [place], | without myelopathy | | | | [place] [address] | [place] [address] | or radiculopathy | | | | [phone] | [phone] | (Primary Dx); | | | | | | Chronic right-sided | | | | | [facility] [employer] | low back pain with | | [...] +---------+ + + | Blood Pressure | 134/67 | 07/06/2016 11:15 AM | | | | | PDT | | + +---------+ + + | Pulse | 70 | 07/06/2016 10:53 AM | | | | | PDT [...] [place] | | | | | | [address] | | | | | | | | +--------+---------+ + + + documented as of this encounter Procedures + +--------+ + + + | Procedure Name | Priori | Date/Time | Associated Diagnosis | Comments | | | ty | | | | + +--------+ + + + | FL FACET INJECTION | Routin | 07/06/2016 | Chronic | Results for this | | LUMBAR SACRAL | e | 11:06 AM | right-sided low back | procedure are in the | | | | PDT | pain with | results section. | | | | | right-sided sciatica | | | | | | Facet arthritis of | | | | | | lumbar region (HCC) | | | | | | Adolescent | | | | | | idiopathic scoliosis | | | | | | of lumbar region | | | | | | Osteoarthritis of | | | | | | spine without | | | | | | myelopathy or | | | | | | radiculopathy, | | | | | | lumbar region | | + +--------+ + + + documented in this encounter Results FL Facet Injection Lumbar Sacral (07/06/2016 11:06 AM PDT) + + | Specimen | + + | | + + + + + | Narrative | Performed At | + + + | 07/06/2016 Bilateral Lumbar Facet Steroid Injections | [facility] | | Diagnosis: Lumbar Spondylosis ICD-10 Code M47.816 [facility] | | Joanne presents to the fluoroscopy suite for | [facility] | | fluoroscopically-guided bilateral L5-S1 [...] + | [facility] | [address] 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, lumbar region | + + documented in this encounter Administered Medications + +--------+ +-------+------+------+ | Medication Order | MAR | Action | Dose | Rate | Site | | | Action | Date | | | | + +--------+ +-------+------+------+ | iohexol (OMNIPAQUE 300) 300 | Given | 07/06/ | 2 mLs | | | | mg/mL injection 2 mL 2 mL, | | 16 11:00 | | | | | Other, ONCE, [facility] 07/06/16 at 1115, | | AM PDT | | | | | For 1 dose, Radiology | | | | | | + +--------+ +-------+------+------+ +---+---+ | | | +---+---+ + +-------+ +------+---+---+ | lidocaine 1% injection 1 mL 1 | Given | 07/06/20 | 1 mL | | | | mL, Other, ONCE, [facility] 07/06/16 at | | 16 11:03 | | | | | 1115, For 1 dose, Radiology | | AM PDT | | | | + +-------+ +------+---+---+ +---+---+ | | | +---+---+ + +-------+ +--------+---+---+ | lidocaine buffered 1% injection | Given | 07/06/20 | 10 mLs | | | | 10 mL 10 mL, Other, ONCE, e | | 16 10:58 | | | | | 07/06/16 at 1115, For 1 dose, | | AM PDT | | | | | Radiology | | | | | | + +-------+ +--------+---+---+ +---+---+ | | | +---+---+ + +-------+ +-------+---+---+ | triamcinolone acetonide | Given | 07/06/20 | 40 mg | | | | (KENALOG-40) 40 mg/mL injection | | 16 11:02 | | | | | 40 mg 40 mg, Other, ONCE, Tue | | AM PDT | | | | | 07/06/16 at 1115, For 1 dose, Shake | | | | | | | well. Not for IV use., Radiology | | | | | | + +-------+ +-------+---+---+ +---+---+ | | | +---+---+ documented in this encounter"
--- OUTSIDE RECORDS SUMMARY | ~2019-10-10 | XMS | Encounter Summary ---
Demographics + + + | Address | [address] | | | [place] [address] | + + + | Home Phone [...] Author | [facility] [...] Providers + +------+ + | Care Mail Sorting Supervisor Name | Role | Phone | [...] | | [address] | [place] [address] | | | | | [place] | [phone] | | | | | [address] | | | | | | [phone] | | | +--------+ + + + [...] [place] | | | | | | [address] | | | | | | | | +--------+---------+ + + + documented as of this encounter Visit Diagnoses Not on filedocumented in this encounter"
--- OUTSIDE RECORDS SUMMARY | ~2019-10-10 | XMS | Encounter Summary ---
Demographics + + + | Address | [address] | | | [place] [address] | + + + | Home Phone [...] Team Providers + +------+ + | Care Platform Material Handling Supervisor Name | Role | Phone | [...] | | | | | | | NM SURG | | | | | | | IMPLNT | | | | | | | NEUROELECT,E | | | | | | | PIDURAL NM | | | | | | | IMPLANT | | | | | | | NEUROSTIM/RE | | | | | | | CEIVER NM | | | | | | | [...] + + | 08/03/ | Anesthesia | [facility] | Yojana Arellano CRNA | | | 2019 | Event [facility] | [address] | | | | | OPERATING RO[address] | [place] [address] | | | | | [address] | [phone] | | | | | [place], [place] | | | | | | [address] | | | | | | [phone] | | | +--------+ + + + [...] +----+---+ + + | | 0 | [place] | | | | 9 | 43-degrees [...] [address] | | eral | Antecubital; [id number] | Mikayla Marcial, | Gamal Whitney, | [...] | | | | | | DRIVE [place], [place] | | | | | | [address] | | | | | | | [...] - 08/03/2019 9:52 AM PDT Anesthesia Airway Desvzkskd80/4/2019 | | 9:33Preprocedure check: patient identified, oxygen, [...]
--- OUTSIDE RECORDS SUMMARY | ~2019-10-10 | XMS | Encounter Summary ---
Demographics + + + | Address | [address] | | | [place] [address] | + + + | Home Phone [...] Team Providers + +------+ + | Care Carbonation Equipment Operator Name | Role | Phone | [...] low | J Luis, | [address] | | | | | back pain | Shay Mukherjee MD | [place], | | | | | Procedures | [address] | [place] | | | | | MRI Lumbar | [place] | [address] | | | | | Spine wo | [place], [place] | Phone: | | | | | Contrast | [address] | [phone] | | | | | | Phone: | Fax: | | | | | | [phone] | [phone] | | | | | | Fax: | | | | | | | [phone] | | +--------+--------+ + + + + [...] + + | 08/16/ | Office | [facility] | Shay Dietz | Chronic low back | | 2012 | Visit | PHYSIATRY [address] | T, [address] | pain (Primary Dx); | | | | [address] [place], | [place], [place] | DISC DISEASE, | | | | [place] [address] | [address] | LUMBAR; Facet | | | | [phone] | | arthritis of lumbar | | [...] [place] | | | | | | [address] | | | | | | | [...]
--- OUTSIDE RECORDS SUMMARY | ~2019-10-10 | XMS | Clinical Summary ---
Demographics + + + | Address | [address] | | | [place] [address] | + + + | Home Phone [...] Team Providers + +------+ + | Care Tax Adjuster Name | Role | Phone | + +------+ + | Oxana Nye | PCP | | + +------+ + Source Comments [facility] Allergies + + + + [...] MEDICARE | MEDICA | xxxxxxxxxx | | [phone] | [address] | Medica | | | RE A & | | [phone] | [address] | [phone] | re | | | B | | esent | | [place] | | | | | | | | [address] | | + +--------+ +--------+ + +--------+ | [employer] | AARP | xxxxxxxxxx | 07/01/20 | [phone] | [address] | Indemn | | RETIRED PEOPLE | | | 12-Pre | 9 | [id number] | ity | | | | | sent | | [place] | | | | | | | | [address] | | + +--------+ +--------+ + +--------+ [...] jose | | | 8 (Home) | [address] | + +--------+ +--------+ + +
--- OUTSIDE RECORDS SUMMARY | ~2019-10-10 | XMS | Encounter Summary ---
Demographics + + + | Address | [address] | | | [place] [address] | + + + | Home Phone | | + + + | Preferred Language | Unknown | + + + | Marital Status | Single | + + + | Methodist Affiliation | NON | + + + [...] Providers + +------+ + | Care Civil Engineering Draftsperson Name | Role | Phone | + +------+ + | Oxana Nye | PCP | | + +------+ + Encounter Details +--------+------+ + + + | Date | Type | Department | Care Team | Description | +--------+------+ + + + | 03/09/ | Lab | Laboratory at [facility] | | Chest pain, | | 2015 | | [address] | | unspecified type | | | | [place], [place] | | | | | | [address] | | | | | | [phone] | | | +--------+------+ + + + [...] NON-HDL | 54 | <=130 mg/dL | [facility] | | | CHOLESTEROL | [...] + + + + | [facility] | [address] | [place], [place] | | | | [address] | [address] | | + + + + + documented in this encounter Visit Diagnoses + + | Diagnosis | + + | Chest pain, unspecified type | + + documented in this encounter"
--- OUTSIDE RECORDS SUMMARY | ~2019-10-10 | XMS | Encounter Summary ---
Demographics + + + | Address | [address] | | | [place] [address] | + + + | Home Phone [...] Providers + +------+ + | Care Sales Assistant Displays Name | Role | Phone | + [...] | Services | Therapy | Scoliosis | Darirn | | | | Required | | of lumbar | [place] | | | | | | spine Facet | [address] | | | | | | arthritis | [address] | | | | | | of lumbar | [place] | | | | | | region | [address] | | | | | | | Phone: | | | | | | | [phone] | | | | | | | Fax: | | | | | | | [phone] | | +--------+ + + + + + Reason for Visit + + + | Reason | Comments | + + + | Follow-up | MRI f/u | + + + Encounter Details +--------+---------+ + + + | Date | Type | Department | Care Team | Description | +--------+---------+ + + + | 09/10/ | Office | [facility] | Darrin Hoyos | Scoliosis of lumbar | | 2013 | Visit | NEUROSURGERY [address] | [address] | spine (Primary Dx); | | | | [address] | [address] | 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 PEE Vang [address] [facility], [address] [place], [place] [address] FAX: NEUROSURGERY HISTORY AND PHYSICAL EXAMINATION CHIEF [...] a also s een a surgeon in [facility] he stated she did not need to have surgery according to her repo rt. She also reports she had a recent MRI in the [facility] which I do not have [...] apparent deficits with short or halfway memory. CRANIAL NERVES: II: Acuity is intact. [...] Intrinsics 5 4 Ulnar Intrinsics 5 4 Construction Person Strength 5 4 Hip Flexion 5 4 [...] [place] | | | | | | [id number] | | | | | | | [...]
--- OUTSIDE RECORDS SUMMARY | ~2019-10-10 | XMS | Encounter Summary ---
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
--- OUTSIDE RECORDS SUMMARY | ~2019-10-10 | XMS | Encounter Summary ---
Demographics + + + | Address | [address] | | | [place] [address] | + + + | Home Phone [...] Team Providers + +------+ + | Care Dishwasher Busser Name | Role | Phone | + +------+ + | Miquel Calhoun MD | PCP | | + +------+ + Encounter Details +--------+ + + + + | Date | Type | Department | Care Team | Description | +--------+ + + + + | 10/18/ | Hospital | [facility] | Shay Dietz | | | 2012 | Encounter | MED CTR XRAY [address] | T, [address] | | | | | [place] | [facility] [place], [place] | | | | | [place] [address] | [address] | | | | | [phone] | | | +--------+ + + + [...] [place] | | | | | | [address] | | | | | | | [...] At | + + + | [facility] Diagnostic Imaging | [facility] | | Department [address] [facility], [place] | [facility] | | [ rep [address]] [ rep [facility] | | st zip] Signed | - IMAGING | | | | | Patient Name: KORI HARMON | | | Physician: OMID : 1945 Age: 68 Sex: F Unit | | | #: [id number] Exam Date: 10/18/13 Location: | | | IMG.INV Report #: [id number] Page: | | | %(RAD)RES..mtdd.print.filter("pg") of %(RAD) | | | RES..mtdd.print.filter("tpg") | | | | | | Accession Number: [id number] | | | LUMBAR MEDIAL BRANCH BLOCKS, [...] Transcribed Date/Time: | | | 10/18/2013 19:14 Sales And Service Consultant: | | | <<Signature on File>> | | | Shay Mukherjee | | | MD J Luis10/22/13 0756 <Electronically signed by Shay Mukherjee | | | J Luis [place]> Shay Dietz MD 10/18/13 6809 | | | Sales And Service Consultant: Yudelka Hxjwjhphlzrwf89/19/13 8200 | | | PROVIDER,UNKNOWN | | + + + + + + + + | Performing | Address | City/State/Zipcode | Phone Number | | Organization | | | | + + + + + | [facility] | [address] | [place] | [phone] | | [facility] | | [address] | | | - IMAGING | | | | + + + + + documented in this encounter Visit Diagnoses Not on filedocumented in this encounter
--- OUTSIDE RECORDS SUMMARY | ~2019-10-10 | XMS | Encounter Summary ---
Demographics + + + | Address | [address] | | | [place] [address] | + + + | Home Phone | | + + + | Preferred Language | Unknown | + + + | Marital Status | Single | + + + | Yarsani Affiliation | NON | + + + | Race | White | + + + | Ethnic Group | Not or | + + + Author + + + | Author | [facility] | + + + | Organization | [facility] | + + + | Address | Unknown | + + + | Phone | Unavailable | + + + Support + + +---------+ + | Name | Relationship | Address | Phone | + + +---------+ + | Royce Menchaca | ECON | Unknown | | + + +---------+ + Care Team Providers + +------+ + | Care C Python Developer Name | Role | Phone | [...] 2015 | Encounter | at [facility] [address] | [address] | havea problem with | | | | [address] [place] Mailcode: | [address] [facility], | my heart. | | | | [address] | [place] [address] | | | | | [facility], | [phone] | | | | | [facility] | | | | | | Floor [place], [place] | | | | | | [address] | | | | | | [phone] | | | +--------+ + + + [...]
--- OUTSIDE RECORDS SUMMARY | ~2019-10-10 | XMS | Encounter Summary ---
Demographics + + + | Address | [address] | | | [place] [address] | + + + | Home Phone [...] Team Providers + +------+ + | Care Plush Weaver Name | Role | Phone | + [...] | | 2012 | | [facility] | [address] | (Dr. Holbrook) | | | | [address] | [address] | | | | | [place] | [place] | | | | | [id number] | [address] | | | | | [facility], | [phone] | | | | | [place] [address] | | | | | | [phone] | | | +--------+ + + + [...]
--- OUTSIDE RECORDS SUMMARY | ~2019-10-10 | XMS | Encounter Summary ---
Demographics + + + | Address | [address] | | | [place] [address] | + + + | Home Phone [...] Team Providers + +------+ + | Care Farmworker Egg Producing Farm Name | Role | Phone | + [...] [address] | | | | | [place], | [place], [place] | | | | | [place] [address] | [address] | | | | | [phone] | | | +--------+ + + + [...] 10/15/ | Office | Pain Medicine | eDnys Sibley, | | | 2018 | Visit | | DO [address] | | | | | | [place] | | | | | | [id number] | | | | | | | | +--------+---------+ + + + documented as of this encounter Visit Diagnoses Not on filedocumented in this encounter"
--- OUTSIDE RECORDS SUMMARY | ~2019-10-10 | XMS | Encounter Summary ---
Demographics + + + | Address | [address] | | | [place] [address] | + + + | Home Phone [...] Team Providers + +------+ + | Care Peer Counselor Name | Role | Phone | + +------+ + | Wendi Aiken | PCP | | + +------+ + Encounter Details +--------+ + + + + | Date | Type | Department | Care Team | Description | +--------+ + + + + | 06/07/ | Hospital | [facility] | Conversion | | | 2018 | Encounter | [facility] | Transaction, | | | | | CLINIC [address] | Provider Unknown | | | | | [place], [place] | | | | | | [address] | (Fax) | | | | | [phone] | | | +--------+ + + + [...] [place] | | | | | | [address] | | | | | | | [...] | | | Basophils | performed at [facility], [address] | K[address] | LAB | | | | [address], | | | | | | [place] [address] | | | | + + + [...] | | | | | performed at [facility], [address] | | | | | | [facility], | | | | | | [place] [address] | | | | + + + [...]
--- OUTSIDE RECORDS SUMMARY | ~2019-10-10 | XMS | Encounter Summary ---
Demographics + + + | Address | [address] | | | [place] [address] | + + + | Home Phone [...] Team Providers + +------+ + | Care Floriculture Professor Name | Role | Phone | [...] [address] | | | | | [place], [place] | [place], [place] | | | | | [address] | [address] | | | | | [phone] | [phone] | | | | | | | [...] | + + + + + | [facility] DEPARTMENT OF | [address] | [place] [address] | | | PATHOLOGY | [address] | | | + + + + + | [facility] DEPARTMENT OF | [facility] | [place] [address] | | | PATHOLOGY | [address] [...] | + + + + + | [facility] DEPARTMENT OF | [address] | [place] [address] | | | PATHOLOGY | [address] | | | + + + + + | [facility] | [address] | [place] [address] | | | PATHOLOGY | [address] [...] | + + + + + | [facility] DEPARTMENT OF | [address] | [place] [address] | | | PATHOLOGY | [address] | | | + + + + + | [facility] DEPARTMENT OF | [address] | [place] [address] | | | PATHOLOGY | [address] [...] DEPARTMENT OF | [address] | [place] [address] | | | PATHOLOGY | [address] | | | + + + + + | [facility] DEPARTMENT OF | [address] | [place] [address] | | | PATHOLOGY | [address] [...] | + + + + + | [facility] DEPARTMENT OF | [address] | [place] [address] | | | PATHOLOGY | [address] | | | + + + + + | [facility] DEPARTMENT OF | [address] | [place] [address] | | | PATHOLOGY | [address] [...] + + | [facility] | [address] | [place] [address] | | | PATHOLOGY | [address] | | | + + + + + | [facility] | [facility] [address] | [place] [address] | | | PATHOLOGY | [address] | | | + + + + + PHOSPHORUS, PLASMA (06/30/2006 7:00 AM PDT) + +-------+ + + + | Component | Value | Ref Range | Performed | Pathologist | | | | | At | Signature | + +-------+ + + + | PHOSPHORUS, | 3.8 | 2.4 - 4.7 mg/dL | [facility] | | | PLASMA [...] | + + + + + | [facility] DEPARTMENT OF | [address] | [place] [address] | | | PATHOLOGY | [address] | | | + + + + + | [facility] DEPARTMENT OF | [address] | [place] [address] | | | PATHOLOGY | [address] [...] + + | [facility] DEPARTMENT OF | [address] | [place], [place] [address] | | | PATHOLOGY | [address] | | | + + + + + | [facility] DEPARTMENT OF | [address] | [place] [address] | | | PATHOLOGY | [address] | | | + + + + + CREATININE, URINE (06/30/2006 4:45 AM PDT) + +-------+ + + + | Component | Value | Ref Range | Performed | Pathologist | | | | | At | Signature | + +-------+ + + + | CREATININE | 40.1 | mg/dL | [facility] | | | CONC UR | | [...] | + + + + + | [facility] DEPARTMENT OF | [address] | [place] [address] | | | PATHOLOGY | [address] | | | + + + + + | [facility] DEPARTMENT OF | [address] | [place] [address] | | | PATHOLOGY | [address] [...] | + + + + + | [facility] DEPARTMENT OF | [address] | [place] [address] | | | PATHOLOGY | [address] | | | + + + + + | [facility] DEPARTMENT OF | [address] | [place] [address] | | | PATHOLOGY | [address] [...] + + | [facility] DEPARTMENT OF | [address] | [place] [address] | | | PATHOLOGY | [address] | | | + + + + + | [facility] DEPARTMENT OF | [address] | [place] [address] | | | PATHOLOGY | [address] [...] + + | [facility] | [address] | [place] [address] | | | PATHOLOGY | [address] | | | + + + + + | [facility] | [address] [place] [address] | [place] [address] | | | PATHOLOGY | [address] [...] + | [facility] DEPARTMENT OF | [address] | [place] [address] | | | PATHOLOGY | [address] | | | + + + + + | [facility] DEPARTMENT OF | [address] | [place] [address] | | | PATHOLOGY | [address] [...] DEPARTMENT OF | [address] | [place] [address] | | | PATHOLOGY | [address] | | | + + + + + | [facility] DEPARTMENT OF | [address] | [place] [address] | | | PATHOLOGY | [address] | | | + + + + + PHOSPHORUS, PLASMA (06/29/2006 5:45 PM PDT) + +-------+ + + + | Component | Value | Ref Range | Performed | Pathologist | | | | | At | Signature | + +-------+ + + + | PHOSPHORUS, | 3.6 | 2.4 - 4.7 mg/dL | [facility] | | | PLASMA [...] | + + + + + | [facility] DEPARTMENT | [address] | [place] [address] | | | PATHOLOGY | [address] | | | + + + + + | [facility] | [address] | [place] [address] | | | PATHOLOGY | [address] [...] | | | | Test performed by [facility] | | | | | | Laboratories. | | | | + + + + + + + + | Specimen | + + | | + + + + + + + | Performing | Address | City/State/Zipcode | Phone Number | | Organization | | | | + + + + + | [facility] | [address] | [place], [place] | | | [facility] | | [phone] | | + + + + + [...] + + | [facility] | [address] | [place] [address] | | | PATHOLOGY | [address] | | | + + + + + | [facility] | [address] | [place] [address] | | | PATHOLOGY | [address] [...] DEPARTMENT OF | [address] | [place] [address] | | | PATHOLOGY | [address] | | | + + + + + | [facility] | [address] | [place] [address] | | | PATHOLOGY | [address] [...] [facility] | [address] | [place], [place] | | | [facility] | | [phone] | | + + + + + [...] | | | | | performed at [facility] | | | | | | [facility] | | | | | | Laboratory. | | | | + + + + + + + + | Specimen | + + | | + + + + + + + | Performing | Address | City/State/Zipcode | Phone Number | | Organization | | | | + + + + + | [facility] | [address] | [place] [address] | | | LAB-MICRO | | | [...] DEPARTMENT OF | [address] | [place] [address] | | | PATHOLOGY | [address] | | | + + + + + | [facility] DEPARTMENT OF | [address] | [place] [address] | | | PATHOLOGY | [address] [...] | + + + + + | [facility] | [address] | [place] [address] | | | PATHOLOGY | [address] | | | + + + + + | [facility] | [address] [place] [address] | [place] [address] | | | PATHOLOGY | [address] [...] + + | [facility] DEPARTMENT OF | [address] | [place] [address] | | | PATHOLOGY | [address] | | | + + + + + | [facility] DEPARTMENT OF | [address] | [place] [address] | | | PATHOLOGY | [address] [...] | + + + + + | [facility] DEPARTMENT OF | [facility] | [place] [address] | | | PATHOLOGY | [address] | | | + + + + + | [facility] DEPARTMENT OF | [facility] | [place] [address] | | | PATHOLOGY | [address] [...] | + + + + + | [facility] DEPARTMENT OF | [address] | [place] [address] | | | PATHOLOGY | [address] | | | + + + + + | [facility] DEPARTMENT OF | [address] | [place] [address] | | | PATHOLOGY | [address] | | | + + + + + PHOSPHORUS, PLASMA (06/29/2006 6:55 AM PDT) + +---------+ + + + | Component | Value | Ref Range | Performed | Pathologist | | | | | At | Signature | + +---------+ + + + | PHOSPHORUS, | 2.2 (L) | 2.4 - 4.7 mg/dL | [facility] | | | PLASMA [...] | + + + + + | [facility] DEPARTMENT OF | [facility] | [place] [address] | | | PATHOLOGY | [address] | | | + + + + + | [facility] DEPARTMENT OF | [address] | [place] [address] | | | PATHOLOGY | [address] [...] | + + + + + | [facility] DEPARTMENT OF | [address] | [place] [address] | | | PATHOLOGY | [address] | | | + + + + + | [facility] DEPARTMENT OF | [address] | [place] [address] | | | PATHOLOGY | [address] [...] DEPARTMENT OF | [address] | [place] [address] | | | PATHOLOGY | [address] | | | + + + + + | [facility] DEPARTMENT OF | [address] | [place] [address] | | | PATHOLOGY | [address] [...] | + + + + + | [facility] DEPARTMENT OF | [address] | [place] [address] | | | PATHOLOGY | [address] | | | + + + + + | [facility] | [address] [facility] | [place] [address] | | | PATHOLOGY | [address] [...] DEPARTMENT OF | [address] | [place] [address] | | | PATHOLOGY | [address] | | | + + + + + | [facility] DEPARTMENT OF | [address] | [place] [address] | | | PATHOLOGY | [address] [...] | + + + + + | [facility] DEPARTMENT OF | [address] | [place] [address] | | | PATHOLOGY | [address] | | | + + + + + | [facility] DEPARTMENT OF | [address] | [place] [address] | | | PATHOLOGY | [address] | | | + + + + + MAGNESIUM, PLASMA (06/28/2006 6:20 AM PDT) + +-------+ + + + | Component | Value | Ref Range | Performed | Pathologist | | | | | At | Signature | + +-------+ + + + | MAGNESIUM,P | 2.1 | 1.8 - 2.5 mg/dL | [facility] | | | LASMA [...] | + + + + + | [facility] DEPARTMENT OF | [facility] | [place] [address] | | | PATHOLOGY | [address] | | | + + + + + | [facility] DEPARTMENT OF | [facility] | [place] [address] | | | PATHOLOGY | [address] [...] | + + + + + | [facility] DEPARTMENT OF | [address] | [place] [address] | | | PATHOLOGY | [address] | | | + + + + + | [facility] DEPARTMENT OF | [address] | [place] [address] | | | PATHOLOGY | [address] [...] + + | [facility] | [address] | [place] [address] | | | PATHOLOGY | [address] | | | + + + + + | [facility] | [address] | [place] [address] | | | PATHOLOGY | [address] [...] | + + + + + | [facility] DEPARTMENT OF | [address] | [place] [address] | | | PATHOLOGY | [address] | | | + + + + + | [facility] DEPARTMENT OF | [address] | [place] [address] | | | PATHOLOGY | [address] [...] + + | [facility] | [address] | [place] [address] | | | PATHOLOGY | [address] | | | + + + + + | [facility] | [facility] [address] | [place] [address] | | | PATHOLOGY | [address] [...] | + + + + + | [facility] DEPARTMENT OF | [address] | [place] [address] | | | PATHOLOGY | [address] | | | + + + + + | [facility] DEPARTMENT OF | [address] | [place] [address] | | | PATHOLOGY | [address] [...] | + + + + + | [facility] DEPARTMENT OF | [facility] | [place] [address] | | | PATHOLOGY | [address] | | | + + + + + | [facility] DEPARTMENT OF | [address] | [place] [address] | | | PATHOLOGY | [address] [...] | + + + + + | [facility] DEPARTMENT OF | [address] | [place] [address] | | | PATHOLOGY | [address] | | | + + + + + | [facility] DEPARTMENT OF | [address] | [place] [address] | | | PATHOLOGY | [address] [...] | + + + + + | [facility] DEPARTMENT OF | [address] | [place] [address] | | | PATHOLOGY | [address] | | | + + + + + | [facility] | [address] | [place] [address] | | | PATHOLOGY | [address] [...] + + + | Test performed at [facility] | | + + + + + + + + | Performing | Address | City/State/Zipcode | Phone Number | | Organization | | | | + + + + + | [facility] | [address] | [place] [address] | | | LABORATORY | | | [...] + + + | Test performed at [facility] | | + + + + + + + + | Performing | Address | City/State/Zipcode | Phone Number | | Organization | | | | + + + + + | [facility] | [address] | [place] [address] | | | LABORATORY | | | | + + + + + IOD-ORGANIC BASE CONFIRM (06/27/2006 11:55 AM PDT) + + | Specimen | + + | | + + + + + | Narrative | Performed At | + + + | Test performed at [facility] | [facility] | | | DEPARTMENT OF | | | PATHOLOGY | + + + + + + + + | Performing | Address | City/State/Zipcode | Phone Number | | Organization | | | | + + + + + | [facility] | [address] | [place] [address] | | | PATHOLOGY | [address] | | | + + + + + | [facility] | [address] | [place] [address] | | | PATHOLOGY | [address] [...] | | | | | performed at [facility] | | | | | | [facility] | | | | | | Laboratory. | | | | + + + + + + + + | Specimen | + + | | + + + + + + + | Performing | Address | City/State/Zipcode | Phone Number | | Organization | | | | + + + + + | [facility] | [address] | [place] [address] | | | LAB-MICRO | | | [...] | + + + + + | [facility] | [address] | [place] [address] | | | LABORATORY | | | [...] DEPARTMENT OF | [address] | [place] [address] | | | PATHOLOGY | [address] | | | + + + + + | [facility] DEPARTMENT OF | [address] | [place] [address] | | | PATHOLOGY | [address] [...] + + | [facility] | [address] | [place] [address] | | | PATHOLOGY | [address] | | | + + + + + | [facility] | [address] [place] [address] | [place] [address] | | | PATHOLOGY | [address] [...] | + + + + + | [facility] DEPARTMENT OF | [address] | [place] [address] | | | PATHOLOGY | [address] | | | + + + + + | [facility] DEPARTMENT OF | [address] | [place] [address] | | | PATHOLOGY | [address] [...] 1.19Comment: | 0.90 - 1.20 INR | [facility] | | | | PT INR Therapeutic [...] + + | [facility] | [address] | [place] [address] | | | PATHOLOGY | [address] | | | + + + + + | [facility] DEPARTMENT | [address] | [place] [address] | | | PATHOLOGY | [address] [...] | + + + + + | [facility] DEPARTMENT OF | [address] | [place] [address] | | | PATHOLOGY | [address] | | | + + + + + | [facility] DEPARTMENT OF | [address] | [place] [address] | | | PATHOLOGY | [address] [...] DEPARTMENT OF | [address] | [place] [address] | | | PATHOLOGY | [address] | | | + + + + + | [facility] DEPARTMENT OF | [address] | [facility] [place] [address] | | | PATHOLOGY | [address] [...] DEPARTMENT OF | [address] | [place] [address] | | | PATHOLOGY | [address] | | | + + + + + | [facility] | [address] | [place] [address] | | | PATHOLOGY | [address] [...] | | | | | performed at [facility] | | | | | | [facility] | | | | | | Laboratory. | | | | + + + + + + + + | Specimen | + + | | + + + + + + + | Performing | Address | City/State/Zipcode | Phone Number | | Organization | | | | + + + + + | [facility] | [address] | [place] [address] | | | LAB-MICRO | | | [...] | | | | | performed at [facility] | | | | | | [facility] | | | | | | Laboratory. | | | | + + + + + + + + | Specimen | + + | | + + + + + + + | Performing | Address | City/State/Zipcode | Phone Number | | Organization | | | | + + + + + | [facility] | [address] | [place] [address] | | | LAB-MICRO | | | [...] DEPARTMENT OF | [address] | [place] [address] | | | PATHOLOGY | [address] | | | + + + + + | [facility] | [address] | [place] [address] | | | PATHOLOGY | [address] [...] | | | | AG, SERUM | [facility] | | | | | | Laboratories. | | | | + + + + + + + + | Specimen | + + | | + + + + + + + | Performing | Address | City/State/Zipcode | Phone Number | | Organization | | | | + + + + + | [facility] | [address] | [place] [address] | | | LABORATORY | | | [...] | | | | [facility] | [facility] | | | | | | Laboratories. | | | | + + + + + + + + | Specimen | + + | | + + + + + + + | Performing | Address | City/State/Zipcode | Phone Number | | Organization | | | | + + + + + | [facility] | [address] | [place] [address] | | | LABORATORY | | | [...] | + + + + + | [facility] | [address] | [place] [address] | | | LABORATORY | | | [...] | | | | | performed at [facility] | | | | | | [facility] | | | | | | Laboratory. | | | | + + + + + + + + | Specimen | + + | | + + + + + + + | Performing | Address | City/State/Zipcode | Phone Number | | Organization | | | | + + + + + | [facility] | [address] | [place] [address] | | | LAB-MICRO | | | [...] + + | [facility] | [address] | [place] [address] | | | PATHOLOGY | [address] | | | + + + + + | [facility] | [facility] [facility] | [place] [address] | | | PATHOLOGY | [address] [...] | + + + + + | [facility] DEPARTMENT OF | [address] | [place] [address] | | | PATHOLOGY | [address] | | | + + + + + | [facility] DEPARTMENT OF | [address] | [place] [address] | | | PATHOLOGY | [address] [...] | + + + + + | [facility] DEPARTMENT OF | [address] [facility] | [place] [address] | | | PATHOLOGY | [address] | | | + + + + + | [facility] DEPARTMENT OF | [address] [place] [address] | [place] [address] | | | PATHOLOGY | [address] [...] | + + + + + | [facility] DEPARTMENT OF | [address] | [place] [address] | | | PATHOLOGY | [address] | | | + + + + + | [facility] DEPARTMENT OF | [address] | [place] [address] | | | PATHOLOGY | [address] [...] + + | [facility] | [address] | [place] [address] | | | PATHOLOGY | [address] | | | + + + + + | [facility] DEPARTMENT OF | [address] | [place] [address] | | | PATHOLOGY | [address] [...] | + + + + + | [facility] DEPARTMENT OF | [address] | [place] [address] | | | PATHOLOGY | [address] | | | + + + + + | [facility] DEPARTMENT OF | [address] | [place] [address] | | | PATHOLOGY | [address] [...] | + + + + + | [facility] DEPARTMENT OF | [address] [address] | [place] [address] | | | PATHOLOGY | [address] | | | + + + + + | [facility] DEPARTMENT OF | [address] | [place] [address] | | | PATHOLOGY | [address] [...] 247 | 150 - 400 K/cu | [facility] | | | COUNT | | mm [...] | + + + + + | [facility] DEPARTMENT OF | [facility] | [place] [address] | | | PATHOLOGY | [address] | | | + + + + + | [facility] DEPARTMENT OF | [address] | [place] [address] | | | PATHOLOGY | [address] [...] + + | [facility] | [address] | [place] [address] | | | PATHOLOGY | [address] | | | + + + + + | [facility] | [address] | [place] [address] | | | PATHOLOGY | [address] [...] | | | | | | the [facility] LabManual: | | | | | | [email or web address] | | | | [...] + + | [facility] | [address] | [place] [address] | | | PATHOLOGY | [address] | | | + + + + + | [facility] | [address] | [place] [address] | | | PATHOLOGY | [address] [...] + + | [facility] | [address] | [place] [address] | | | PATHOLOGY | [address] | | | + + + + + | [facility] | [address] | [place] [address] | | | PATHOLOGY | [address] [...] | + + + + + | [facility] DEPARTMENT OF | [facility] | [place] [address] | | | PATHOLOGY | [address] | | | + + + + + | [facility] DEPARTMENT OF | [facility] | [place] [address] | | | PATHOLOGY | [address] [...] | + + + + + | [facility] DEPARTMENT OF | [address] | [place] [address] | | | PATHOLOGY | [address] | | | + + + + + | [facility] DEPARTMENT OF | [address] | [place] [address] | | | PATHOLOGY | [address] [...] + + | [facility] | [address] | [place] [address] | | | PATHOLOGY | [address] | | | + + + + + | [facility] DEPARTMENT OF | [address] | [place] [address] | | | PATHOLOGY | [address] [...] | 32.0Comment: | 26.0 - 36.0 | [facility] | | | | [facility] Therapeutic [...] + + | [facility] | [address] [facility] | [place] [address] | | | PATHOLOGY | [address] | | | + + + + + | [facility] | [facility] | [place] [address] | | | PATHOLOGY | [address] [...] DEPARTMENT OF | [address] | [place] [address] | | | PATHOLOGY | [address] | | | + + + + + | [facility] DEPARTMENT | [address] | [place] [address] | | | PATHOLOGY | [address] [...] + + | [facility] | [address] | [place] [address] | | | PATHOLOGY | [address] | | | + + + + + | [facility] | [facility] | [place] [address] | | | PATHOLOGY | [address] [...] DEPARTMENT OF | [address] | [place] [address] | | | PATHOLOGY | [address] | | | + + + + + | [facility] DEPARTMENT | [address] | [place], [place] [address] | | | PATHOLOGY | [address] [...] | + + + + + | [facility] DEPARTMENT OF | [address] | [place] [address] | | | PATHOLOGY | [address] | | | + + + + + | [facility] DEPARTMENT OF | [address] | [place] [address] | | | PATHOLOGY | [address] [...] + + | [facility] | [address] | [place] [address] | | | PATHOLOGY | [address] | | | + + + + + | [facility] | [address] | [place] [address] | | | PATHOLOGY | [address] [...] + + | [facility] | [address] [facility] | [place] [address] | | | PATHOLOGY | [address] | | | + + + + + | [facility] | [address] [place] [address] | [place] [address] | | | PATHOLOGY | [address] [...] + + | [facility] | [address] [facility] | [place] [address] | | | PATHOLOGY | [address] | | | + + + + + | [facility] | [address] [facility] | [place] [address] | | | PATHOLOGY | [address] | | | + + + + + documented in this encounter Visit Diagnoses Not on filedocumented in this encounter"
--- OUTSIDE RECORDS SUMMARY | ~2019-10-10 | XMS | Encounter Summary ---
Demographics + + + | Address | [address] | | | [place] [address] | + + + | Home Phone [...] Team Providers + +------+ + | Care Hall Coordinator Name | Role | Phone | [...] Vasquez VALDEZ | | | | | [phone] | [place] [address] | | +--------+ + + + + [...] | | | | | | [address] [facility] | | | | | | [id number] | | | | | | | [...]
--- OUTSIDE RECORDS SUMMARY | ~2019-10-10 | XMS | Encounter Summary ---
Demographics + + + | Address | [address] | | | [place] [address] | + + + | Home Phone [...] + | Author | [facility] | | | and Priteshana | + + + | Organization | [facility] | | | [...] Providers + +------+ + | Care Hand Polisher Name | Role | Phone | [...] + + | 04/10/ | Telephone | [facility] | Nick Martinez, | Medication Prior | | 2017 | | PHYSIATRY [address] | PA-C [address] | Authorization | | | | [place], | [address] [place] | (Lidocaine Patch ) | | | | [place] [address] | [place] [address] | | | | | [phone] | [phone] | | | | | | | [...] [place] | | | | | | [address] | | | | | | | | +--------+---------+ + + + documented as of this encounter Visit Diagnoses Not on filedocumented in this encounter"
--- OUTSIDE RECORDS SUMMARY | ~2019-10-10 | XMS | Encounter Summary ---
Demographics + + + | Address | [address] | | | [place] [address] | + + + | Home Phone [...] | + + +---------+ + | Royce Mecnhaca | ECON | Unknown | | + + +---------+ + Care Team Providers + +------+ + | Care Instructor Of Spanish Name | Role | Phone | + [...] | | 2016 | Encounter | at [facility] [address] | [address] | [place] | | | | [place]any Mailcode: | [facility] | | | | | [address] | [place] [address] | | | | | Health and Healing, | [phone] | | | | | [place] [address] [facility] | | | | | | Floor [place], [place] | | | | | | [address] | | | | | | [phone] | | | +--------+ + + + [...]
--- OUTSIDE RECORDS SUMMARY | ~2019-10-10 | XMS | Encounter Summary ---
Demographics + + + | Address | [address] | | | [place] [address] | + + + | Home Phone [...] Team Providers + +------+ + | Care Inorganic Chemical Technician Name | Role | Phone | [...] | | [address] [place] | [place] [address] | | | | | [place] | [phone] | | | | | [address] | | | | | | [phone] | | | +--------+ + + + [...] [place] | | | | | | [address] | | | | | | | | +--------+---------+ + + + documented as of this encounter Visit Diagnoses Not on filedocumented in this encounter"
--- OUTSIDE RECORDS SUMMARY | ~2019-10-10 | XMS | Encounter Summary ---
Demographics + + + | Address | [address] | | | [place] [address] | + + + | Home Phone [...] Team Providers + +------+ + | Care Jig And Fixture Maker Name | Role | Phone | [...] + + | 07/03/ | Telephone | [facility] | Shay Dietz | Other (Called | | 2012 | | PHYSIATRY [address] | T[address] | patient to discuss | | | | [place], | [place], [place] | options regarding | | | | [place] [address] | [address] | having another | | | | [phone] | | injection or having | | [...] [place] | | | | | | [address] | | | | | | | | +--------+---------+ + + + documented as of this encounter Visit Diagnoses Not on filedocumented in this encounter"
--- OUTSIDE RECORDS SUMMARY | ~2019-10-10 | XMS | Clinical Summary ---
Demographics + + + | Address | [address] | | | [place] [address] | + + + | Home Phone [...] Team Providers + +------+ + | Care Estimator Binding Name | Role | Phone | + +------+ + | Oxana Nye | PCP | | + +------+ + Source Comments RADHA is fully live on both [facility] and [facility] Allergies + + + + [...] MEDICARE | MEDICA | xxxxxxxxxx | | [phone] | [address] | Medica | | | RE A & | | [phone] | 1 | [phone] | re | | | B | | esent | | [place] | | | | | | | | [address] | | + +--------+ +--------+ + +--------+ | [employer] | AARP | xxxxxxxxxx | 07/01/20 | [phone] | [address] | Indemn | | RETIRED PEOPLE | | | 12-Pre | 9 | [id number] | ity | | | | | sent | | [place] | | | | | | | | [address] | | + +--------+ +--------+ + +--------+ [...] jose | | | 8 (Home) | [address] | + +--------+ +--------+ + +
--- OUTSIDE RECORDS SUMMARY | ~2019-10-10 | XMS | Encounter Summary ---
Demographics + + + | Address | [address] | | | [place] [address] | + + + | Home Phone [...] Team Providers + +------+ + | Care Literacy Education Professor Name | Role | Phone | [...] [place], [place] | | | | | [place], [place] | [address] | | | | | [address] | | | | | | [phone] | | | +--------+ + + + [...] | | | | | | DRIVE [place], [place] | | | | | | [address] | | | | | | | [...] 0.88 m/s MV | | | Dec Titus: 3.57 m/s2 MV DecT: 230.60 ms MV E Mark: 0.82 m/s | | | MV E/A Ratio: 0.93 MV PHT: 66.87 ms MVA By PHT: 3.28 cm2 | | | Septal e': 0.05 m/s Septal E/e': 15.05 Lateral e': 0.08 m/s | | | Lateral E/e': 9.70 RAP: 5 mmHg Panel Coverer: | | | Authenticated by: Nena Franco Report Date/Time: -- | | | [id number]:24 | | + + + + + [...] cmLVPWd: 0.73 cmLVOT Area: 3.03 | | ao2PCXW Diam: 1.96 cm%FS: 33.05 %EF(Teich): 62.03 %ESV(Teich): 29.33 mlLVIDs: | | 2.79 cmSV(Teich): 47.94 mlRVIDd: 2.59 cmLAESV(A-L): 41.85 mlLAESV Index (A-L): | | 26.32 ml/m2LAAs A2C: 12.87 bt9DQYRE A-L A2C: 32.77 mlLALs A2C: 4.29 cmLAAs A4C: | | 16.44 rt3RNRFV A-L A4C: 50.32 mlLALs A4C: 4.55 cmAV maxP.92 mmHgAV meanPG: | | 4.38 mmHgAV Vmax: 1.40 m/Tisha Vmean: 0.99 m/Tisha VTI: 32.81 cmAVA Vmax: 2.11 | | cm2AVA (VTI): 2.40 ti5GRIU (Vmax): 0.00 cm2/m2AVAI (VTI): 0.00 cm2/m2LVOT maxPG: | | 3.84 mmHgLVOT meanP.47 mmHgLVSI Dopp: 49.70 ml/m2LVSV Dopp: 79.02 mlLVOT | | Vmax: 0.98 m/sLVOT Vmean: 0.75 m/sLVOT VTI: 26.05 cmMV A Mark: 0.88 m/sMV Dec | | Titus: 3.57 m/s2MV DecT: 230.60 msMV E Mark: 0.82 m/sMV E/A Ratio: 0.93MV PHT: | | 66.87 msMVA By PHT: 3.28 ux6Cabsas e': 0.05 m/sSeptal E/e': 15.05Lateral e': | | 0.08 m/sLateral E/e': 9.70RAP: 5 mmHg Panel Coverer:Authenticated by: Nena | | AlschiliraReport Date/Time: -- [id number]:11:24 IMPRESSION: 1. This was a technically | [...] A Mark: 0.88 m/s | |MV Dec Titus: 3.57 m/s2 | |MV DecT: 230.60 ms | |MV E Mark: 0.82 m/s | |MV E/A Ratio: 0.93 | |MV PHT: 66.87 ms | |MVA By PHT: 3.28 cm2 | |Septal e': 0.05 m/s | |Septal E/e': 15.05 | |Lateral e': 0.08 m/s | |Lateral E/e': 9.70 | |RAP: 5 mmHg | | | |Panel Coverer: | |Authenticated by: Nena Franco | |Report Date/Time: -- [id number]:11:24 | | | |IMPRESSION: | |1. This [...]
--- OUTSIDE RECORDS SUMMARY | ~2019-10-10 | XMS | Encounter Summary ---
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
--- OUTSIDE RECORDS SUMMARY | ~2019-10-10 | XMS | Encounter Summary ---
Demographics + + + | Address | [address] | | | [place] [address] | + + + | Home Phone [...] Team Providers + +------+ + | Care Mobile Sales Consultant Name | Role | Phone [...] | | | | | right-sided | [place], [place] | [place], [place] | | | | | sciatica | [address] | [address] | | | | | Facet | Phone: | Phone: | | | | | arthritis of | [phone] | [phone] | | | | | lumbar | Fax: | Fax: | | | | | region | [phone] | [phone] | | | | | Foraminal | [...] | Pope[place], | | | | | Senior Php Developer / | Low back | Oxana Solorio, | [place], | | | | Physical | pain | OPERATING ROOM RN [address] | [place] | | | | Medicine and | Bilateral | [address] | [address] | | | | Rehabilitatio | leg pain | [place], | [address] [place], | | | | n | Bilateral | [place] [address] | [place] [address] | | | | | hip pain | Phone: | Phone: | | | | | low back | [phone] | [phone] | | | | | pain, | Fax: | Fax: | | | | | bilateral | [phone] | [phone] | | | | | leg pain [...] | (Primary Dx); | | | | [place], | [place], | Chronic right-sided | | | | [place] [address] | [place] [address] | low back pain with | | | | [phone] | [phone] | right-sided | | | | | [...] 9:31 AM PDT1) Lumbar MRI [place] [facility] - you need to call us when [...] of the procedure you must provide a 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 For all procedur [...] and working more hours due to the [employer] up. 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 Unfortunately she lola nues to have [...] has been ordered to be done at [place] [address]. We will follow up once images are back. ELECTRONICALLY SIGNED BY: Yaneli Dueñsa PA-C, 07/06/2016 documented in t his encounter [...] [place] | | | | | | [address] | | | | | | | [...] Spondylosis ICD-10 Code M47.816 Kori Caputo | [facility] | | Joanne presents to the fluoroscopy suite for [facility] | | fluoroscopically-guided bilateral L5-S1 facet injections [...] + + | Performing | Address | City/State[facility] | Phone Number | | Organization | | | | + + + + + | [facility] | [address] | [place] | [phone] | | [facility] | | [address] | | | - IMAGING | | [...]
--- OUTSIDE RECORDS SUMMARY | ~2019-10-10 | XMS | Encounter Summary ---
Demographics + + + | Address | [address] | | | [place] [address] | + + + | Home Phone [...] Team Providers + +------+ + | Care Game Agent Name | Role | Phone | + +------+ + | Concepción Gallardo NP | PCP | | + +------+ + Encounter Details +--------+ + + + + | Date | Type | Department | Care Team | Description | +--------+ + + + + | 11/26/ | Emergency | [facility] | Garth Pedroza MD | Convulsions, | | 2016 | | MEDICAL CENTER | [address] | unspecified | | | | EMERGENCY CENTER | [place] [address] | convulsion type | | | | [address] | [phone] | (FORMERLY [facility]); Generalized | | | | [place], [place] | | weakness | | | | [address] | | | | | | [phone] | | | +--------+ + + + [...] [place] | | | | | | [address] | | | | | | | [...] | | LAB | | | | [facility];[address];[place] [address] | | | | + + + + + + | Clarity | CLEARComment: Testing | | EXTERNAL | | | | performed at [facility];[address] | | LAB | | | [address];[place] | | | | | | [address] | | | | + + + + + + | Specific | 1.008Comment: Testing | 1.002 - 1.030 | EXTERNAL | | | [place] | performed at [facility];[address] | | LAB | | | | [address];[place] | | | | | | [address] | | | | + + + + + + | Leukocyte | NEGATIVEComment: Testing | | EXTERNAL | | | Esterase, | performed at [facility];[address] | | LAB | | | Urine | [address];[place] | | | | | | [address] | | | | + + + + + + | Nitrite, | NEGATIVEComment: Testing | | EXTERNAL | | | Urine | performed at [facility];[address] | | LAB | | | | [address];[place] | | | | | | [address] | | | | + + + + + + | Urobilinoge | NORMALComment: Testing | mg/dL | EXTERNAL | | | n, Urine | performed at [facility];[address] | | LAB | | | | [address];[place] | | | | | | [address] | | | | + + + + + + | Protein, | NEGATIVEComment: Testing | mg/dL | EXTERNAL | | | Urine | performed at [facility];[address] | | LAB | | | | [address];[place] | | | | | | [address] | | | | + + + + + + | pH, Urine | 5.0Comment: Testing | 5.0 - 8.0 | EXTERNAL | | | | performed at [facility];[address] | | LAB | | | | [address];[place] | | | | | | [address] | | | | + + + + + + | Blood, | NEGATIVEComment: Testing | | EXTERNAL | | | Urine | performed at [facility];[address] | | LAB | | | | [address];[place] | | | | | | [address] | | | | + + + + + + | Ketones | NEGATIVEComment: Testing | mg/dL | EXTERNAL | | | | performed at [facility];[address] | | LAB | | | | [address];[place] | | | | | | [address] | | | | + + + + + + | Bilirubin, | NEGATIVEComment: Testing | | EXTERNAL | | | Urine | performed at [facility];[address] | | LAB | | | | [address];[place] | | | | | | [address] | | | | + + + + + + | Glucose, | NEGATIVEComment: Testing | mg/dL | EXTERNAL | | | Urine | performed at [facility];[address] | | LAB | | | | [address];[place] | | | | | | [address] | | | | + + + [...] EXTERNAL | | | | performed at [facility];[address] | K/uL | LAB | | | | [address];[place], [place] | | | | | | [address] | | | | + + + + + -+ | RED CELL | 4.61Comment: Testing | 3.70 - 5.10 | EXTERNAL | | | COUNT | performed at [facility];[address] | M/uL | LAB | | | | [address];[place] | | | | | | [address] | | | | + + + + + -+ | Hgb | 13.4Comment: Testing | 11.3 - 15.5 | EXTERNAL | | | | performed at [facility];[address] | g/dL | LAB | | | | [address];[place] | | | | | | [address] | | | | + + + + + -+ | Hematocrit, | 40.4Comment: Testing | 34.0 - 46.0 % | EXTERNAL | | | POC | performed at [facility];[address] | | LAB | | | | [address];[place] | | | | | | [address] | | | | + + + + + -+ | MCV | 87.7Comment: Testing | 80.0 - 100.0 fl | EXTERNAL | | | | performed at [facility];[address] | | LAB | | | | [address];[place] | | | | | | [address] | | | | + + + + + -+ | MCH | 29.1Comment: Testing | 27.0 - 34.0 pg | EXTERNAL | | | | performed at [facility];[address] | | LAB | | | | [address];[place] | | | | | | [address] | | | | + + + + + -+ | MCHC | 33.2Comment: Testing | 32.0 - 35.5 | EXTERNAL | | | | performed at [facility];[address] | g/dL | LAB | | | | [address];[place] | | | | | | [address] | | | | + + + + + -+ | RDW-CV | 39.8Comment: Testing | 37 - 53 fl | EXTERNAL | | | | performed at [facility];[address] | | LAB | | | | [address];[place] | | | | | | [address] | | | | + + + + + -+ | Platelet | 287Comment: Testing | 150 - 400 K/uL | EXTERNAL | | | Count | performed at [facility];[address] | | LAB | | | Plasma | [address];[place] | | | | | | [address] | | | | + + + + + -+ | MPV | 7.7Comment: Testing | fl | EXTERNAL | | | | performed at [facility];[address] | | LAB | | | | [address];[place] | | | | | | [address] | | | | + + + + + -+ | Differentia | AUTOMATEDComment: | | EXTERNAL | | | l Type | Testing performed at | | LAB | | | | [facility];[address];[place] [address] | | | | + + + + + -+ | % Segmented | 45.19Comment: Testing | % | EXTERNAL | | | | performed at [facility];[address] | | LAB | | | Neutrophils | [address];[place] | | | | | | [address] | | | | + + + + + -+ | % | 44.63Comment: Testing | % | EXTERNAL | | | Lymphocytes | performed at [facility];[address] | | LAB | | | | [address];[place] | | | | | | [address] | | | | + + + + + -+ | % Monocytes | 7.42Comment: Testing | % | EXTERNAL | | | | performed at [facility];[address] | | LAB | | | | [address];[place] | | | | | | [address] | | | | + + + + + -+ | % | 1.58Comment: Testing | % | EXTERNAL | | | Eosinophils | performed at [facility];[address] | | LAB | | | | [address];[place] | | | | | | [address] | | | | + + + + + -+ | % Basophils | 1.18Comment: Testing | % | EXTERNAL | | | | performed at [facility];[address] | | LAB | | | | [address];[place] | | | | | | [address] | | | | + + + + + -+ | Absolute | 3.08Comment: Testing | 1.90 - 7.40 | EXTERNAL | | | Segmented | performed at [facility];[address] | K/uL | LAB | | | Neutrophils | [address];[place] | | | | | | [address] | | | | + + + + + -+ | Absolute | 3.04Comment: Testing | 1.00 - 3.90 | EXTERNAL | | | Lymphocytes | performed at [facility];[address] | K/uL | LAB | | | | [address];[place] | | | | | | [address] | | | | + + + + + -+ | Absolute | 0.51Comment: Testing | 0.00 - 0.80 | EXTERNAL | | | Monocytes | performed at [facility];[address] | K/uL | LAB | | | | [address];[place] | | | | | | [address] | | | | + + + + + -+ | Absolute | 0.11Comment: Testing | 0.00 - 0.50 | EXTERNAL | | | Eosinophils | performed at [facility];[address] | K/uL | LAB | | | | [address];[place] | | | | | | [address] | | | | + + + + + -+ | Absolute | 0.08Comment: Testing | 0.00 - 0.10 | EXTERNAL | | | Basophils | performed at [facility];[address] | K/uL | LAB | | | | [address];[place] | | | | | | [address] | | | | + + + + + -+ | Na | 139Comment: Testing | 135 - 143 | EXTERNAL | | | | performed at [facility];[address] | mmol/L | LAB | | | | [address];[place] | | | | | | [address] | | | | + + + + + -+ | K | 4.1Comment: SLT | 3.5 - 4.9 | EXTERNAL | | | | HEMOLYSISTesting | mmol/L | LAB | | | | performed at [facility];[address] | | | | | | [address];[place] | | | | | | [address] | | | | + + + + + -+ | Cl | 106Comment: Testing | 99 - 109 mmol/L | EXTERNAL | | | | performed at [facility];[address] | | LAB | | | | [address];[place] | | | | | | [address] | | | | + + + + + -+ | CO2 | 28Comment: Testing | 23 - 32 mmol/L | EXTERNAL | | | | performed at [facility];[address] | | LAB | | | | [address];[place] | | | | | | [address] | | | | + + + + + -+ | Anion Gap | 9Comment: Testing | 5 - 20 mmol/L | EXTERNAL | | | | performed at [facility];[address] | | LAB | | | | [address];[place] | | | | | | [address] | | | | + + + + + -+ | Glucose, | 78Comment: Testing | 65 - 99 mg/dL | EXTERNAL | | | Fasting | performed at [facility];[address] | | LAB | | | | [address];[place] | | | | | | [address] | | | | + + + + + -+ | BUN | 16Comment: Testing | 8 - 25 mg/dL | EXTERNAL | | | | performed at [facility];[address] | | LAB | | | | [address];[place] | | | | | | [address] | | | | + + + + + -+ | Creatinine | 0.82Comment: Testing | 0.50 - 1.00 | EXTERNAL | | | | performed at [facility];[address] | mg/dL | LAB | | | | [address];[place] | | | | | | [address] | | | | + + + + + -+ | BUN/Creatin | 20Comment: Testing | | EXTERNAL | | | ine Ratio | performed at [facility];[address] | | LAB | | | | [address];[place] | | | | | | [address] | | | | + + + + + -+ | Calcium | 8.3 (L)Comment: Testing | 8.5 - 10.5 | EXTERNAL | | | | performed at [facility];[address] | mg/dL | LAB | | | | [address];[place] | | | | | | [address] | | | | + + + + + -+ | Protein, | 7.3Comment: Testing | 6.3 - 8.2 g/dL | EXTERNAL | | | Total | performed at [facility];[address] | | LAB | | | | [address];[place] | | | | | | [address] | | | | + + + + + -+ | Albumin | 3.7Comment: Testing | 3.3 - 4.8 g/dL | EXTERNAL | | | | performed at [facility];[address] | | LAB | | | | [address];[place] | | | | | | [address] | | | | + + + + + -+ | Globulin | 3.6Comment: Testing | 1.3 - 4.9 g/dL | EXTERNAL | | | | performed at [facility];[address] | | LAB | | | | [address];[place] | | | | | | [address] | | | | + + + + + -+ | A/G Ratio | 1.0Comment: Testing | 1.0 - 2.4 | EXTERNAL | | | | performed at [facility];[address] | | LAB | | | | [address];[place] | | | | | | [address] | | | | + + + + + -+ | Bilirubin | 0.2Comment: Testing | 0.1 - 1.5 mg/dL | EXTERNAL | | | Total | performed at [facility];[address] | | LAB | | | | [address];[place] | | | | | | [address] | | | | + + + + + -+ | ALP, | 69Comment: Testing | 35 - 115 U/L | EXTERNAL | | | External | performed at [facility];[address] | | LAB | | | | [address];[place] | | | | | | [address] | | | | + + + + + -+ | AST | 22Comment: SLT | 10 - 45 U/L | EXTERNAL | | | | HEMOLYSISTesting | | LAB | | | | performed at [facility];[address] | | | | | | [address];[place] | | | | | | [address] | | | | + + + + + -+ | ALT | 31Comment: Testing | 10 - 65 U/L | EXTERNAL | | | | performed at [facility];[address] | | LAB | | | | [address];[place] | | | | | | [address] | | | | + + + [...] | | | | | | at [facility];[address] | | | | [address];[place] [address] | | | | + + + + + -+ | CK, Total | 128Comment: Testing | 30 - 240 U/L | EXTERNAL | | | | performed at [facility];[address] | | LAB | | | | [address];[place] | | | | | | [address] | | | | + + + [...] | | | | | performed at [facility];[address] | | | | | | [address];[place] | | | | | | [address] | | | | + + + + + -+ | aPTT, | 27Comment: Testing | 23 - 32 seconds | EXTERNAL | | | Patient | performed at [facility];[address] | | LAB | | | | [address];[place] | | | | | | [address] | | | | + + + + + -+ | CK-MB | 3.2Comment: Testing | 0.5 - 3.6 ng/mL | EXTERNAL | | | | performed at [facility] | | [facility] | | | | [address];[place] | | | | | | [address] | | | | + + + [...] | | Fingerstick | performed at [facility];[address] | | LAB | | | | [address];[place] | | | | | | [address] | | | | + + + [...]
--- OUTSIDE RECORDS SUMMARY | ~2019-10-10 | XMS | Encounter Summary ---
Demographics + + + | Address | [address] | | | [place] [address] | + + + | Home Phone [...] Team Providers + +------+ + | Care Germination Testing Manager Name | Role | Phone | [...] + + | 08/06/ | Telephone | [employer] | Maykel Hutchins MD | Medication Question | | 2019 | | [facility] | [address] | | | | | [facility] | [place] | | | | | [address] [place] | [place] [address] | | | | | [place] | [phone] | | | | | [address] | | | | | | [phone] | | | +--------+ + + + [...] [place] | | | | | | [id number] | | | | | | | | +--------+---------+ + + + documented as of this encounter Visit Diagnoses Not on filedocumented in this encounter"
--- OUTSIDE RECORDS SUMMARY | ~2019-10-10 | XMS | Encounter Summary ---
Demographics + + + | Address | [address] | | | [place] [address] | + + + | Home Phone [...] Team Providers + +------+ + | Care Methods Engineer Name | Role | Phone | [...] [address] | | | | | [place], | [place], [place] | | | | | [place] [address] | [address] | | | | | [phone] | | | +--------+ + + + [...] [place] | | | | | | [id number] | | | | | | | | +--------+---------+ + + + documented as of this encounter Visit Diagnoses Not on filedocumented in this encounter"
--- OUTSIDE RECORDS SUMMARY | ~2019-10-10 | XMS | Encounter Summary ---
Demographics + + + | Address | [address] | | | [place] [address] | + + + | Home Phone [...] Team Providers + +------+ + | Care Automotive Fleet Supervisor Name | Role | Phone | + +------+ + | Romy De La Paz MD | PCP | | + +------+ + Encounter Details +--------+ + + + + | Date | Type | Department | Care Team | Description | +--------+ + + + + | 07/18/ | Preadmit | [facility] | No, Physician | | | 2019 | Visit | CENTER PREADMIT | | | | | | CLINIC [address] | | | | | | [place], [place] | | | | | | [address] | | | | | | [phone] | | | +--------+ + + + [...] for the 07/18/19 encounter (Preadmit Visit) with [facility] ROOM 5 Medication Sig Instructions Ascorbic Acid [...] by elevating your feet Date Last Reviewed: [id number] [employer] [address] [place] [address]. All righ ts reserved. This information is [...] [place] | | | | | | [address] | | | | | | | [...] [facility] | | | Screen | [facility] | | LABORATORY | | | | [address];[place] [address] | | | | + + + + + + + + | Specimen | + + | Blood | + + + + + + + | Performing | Address | City/State/Zipcode | Phone Number | | Organization | | | | + + + + + | [facility] | [address] | [place] [address] | [phone] | + + + + + MRSA [...] [facility] | | | | performed at [facility] | | LABORAT[address] | | | | [address];[place], [place] | | | | | | [address] | | | | + + + + + + + + | Specimen | + + | Tissue - Both | | anterior nares (body | | structure) | + + + + + + + | Performing | Address | City/State/Zipcode | Phone Number | | Organization | | | | + + + + + | [facility] | [address] | [place] [address] | [phone] | + + + + + Protime INR (07/18/2019 2:26 PM PDT) + + + + + + | Component | Value | Ref Range | Performed | Pathologist | | | | | At | Signature | + + + + + + | INR | 1.0Comment: REFERENCE | | [facility] | | | | RANGE:0.9 - 1.2 [...] | | | | performed at [facility];[address] | | | | | | [address];[place] | | | | | | [address] | | | | + + + + + + + + | Specimen | + + | Blood | + + + + + + + | Performing | Address | City/State/Zipcode | Phone Number | | Organization | | | | + + + + + | [facility] | [address] | [place] [address] | [phone] | + + + + + PTT (07/18/2019 2:26 PM PDT) + + + + + + | Component | Value | Ref Range | Performed | Pathologist | | | | | At | Signature | + + + + + + | PTT | 29Comment: Testing | 23 - 32 seconds | AMIR[facility] | | | | performed at [facility];[address] | | LABORATORY | | | | [address];[place] | | | | | | [address] | | | | + + + + + + + + | Specimen | + + | Blood | + + + + + + + | Performing | Address | City/State/Zipcode | Phone Number | | Organization | | | | + + + + + | [facility] | [address] | [place] [address] | [phone] | + + + + + Comprehensive [...] | | | | | performed at [facility], [address] | | | | | | [facility], | | | | | | [place] [address] | | | | + + + + + + + + | Specimen | + + | Blood | + + + + + + + | Performing | Address | City/State/Zipcode | Phone Number | | Organization | | | | + + + + + | [facility] | [address] | [place] [address] | [phone] | + + + + + CBC [...] | | | Absolute | performed at L, [address] | K/uL | LABORATORY | | | | [place] [address], | | | | | | [place] [address] | | | | + + + + + + + + | Specimen | + + | Blood | + + + + + + + | Performing | Address | City/State/Zipcode | Phone Number | | Organization | | | | + + + + + | [facility] | [address] | [place] [address] | [phone] | + + + + + ECG [...]
--- OUTSIDE RECORDS SUMMARY | ~2019-10-10 | XMS | Encounter Summary ---
Demographics + + + | Address | [address] | | | [place] [address] | + + + | Home Phone [...] Providers + +------+ + | Care School Standards Coach Name | Role | Phone | [...] | Cervical | Darrin | [address] | | | | | radiculopath | [address] | [place], | | | | | y | [address] | [place] | | | | | Myelopathy | [address] | [address] | | | | | (HCC) | [place], [place] | Phone: | | | | | Procedures | [address] | [phone] | | | | | MRI Cervical | Phone: | Fax: | | | | | Spine wo | [phone] | [phone] | | | | | Contrast | Fax: | | | | | | | [phone] | | +--------+--------+ + + + + [...] | region | [address] | AV [place], | | | | | Chronic low | [place], [place] | [place] [address] | | | | | back pain | [address] | Phone: | | | | | Facet | Phone: | [phone] | | | | | arthritis of | [phone] | Fax: | | | | | lumbar | Fax: | [phone] | | | | | region | [phone] | | | | | | Scoliosis [...] | | | | | | | [place] OFFICE | | | | | | [...] + + | 07/26/ | Office | [facility] | Romain Darrin | 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 CRANIAL NERVES: II: Acuity is [...] Intrinsics 5 4 Ulnar Intrinsics 5 4 Project Architect Strength 5 4 Hip Flexion 5 4 [...] coordinating her care. ELECTRONICALLY SIGNED BY: PEE Vnag, 07/26/2014 12:03 documented in th is encounter Plan of Treatment +--------+---------+ + + + | Date | Type | Specialty | Care Team | Description | +--------+---------+ + + + | 10/15/ | Office | Pain Medicine | Denys Sibley, | | | 2018 | Visit | | DO Siri POLLOCK | | | | | | [facility] [place] | | | | | | [address] | | | | | | | [...]
--- OUTSIDE RECORDS SUMMARY | ~2019-10-10 | XMS | Encounter Summary ---
Demographics + + + | Address | [address] | | | [place] [address] | + + + | Home Phone [...] Team Providers + +------+ + | Care Ladderman Name | Role | Phone | + [...] | | [address] | [place] [address] | (Primary Dx); DISC | | | | [place], [place] | [phone] | DISEASE, LUMBAR; | | | | [address] | | Back pain, | | | | [phone] | | unspecified back | | | [...] [place] | | | | | | [address] | | | | | | | [...]
--- OUTSIDE RECORDS SUMMARY | ~2019-10-10 | XMS | Encounter Summary ---
Demographics + + + | Address | [address] | | | [place] [address] | + + + | Home Phone [...] Providers + +------+ + | Care Marketing Financial Analyst Name | Role | Phone | [...] | | | [address] [place], [place] | | | | | [address] | [address] | | | | | [place], [place] | | | | | | [address] | | | | | | [phone] | | | +--------+ + + + [...] [place] | | | | | | [address] | | | | | | | | +--------+---------+ + + + documented as of this encounter Visit Diagnoses Not on filedocumented in this encounter"
--- OUTSIDE RECORDS SUMMARY | ~2019-10-10 | XMS | Encounter Summary ---
Demographics + + + | Address | [address] | | | [place] [address] | + + + | Home Phone [...] Team Providers + +------+ + | Care Administrative Support Assoc Name | Role | Phone | + [...] [address] | | | | | [place], | [place], [place] | | | | | [place] [address] | [address] | | | | | [phone] | | | +--------+ + + + [...] [place] | | | | | | [address] | | | | | | | | +--------+---------+ + + + documented as of this encounter Visit Diagnoses Not on filedocumented in this encounter"
--- OUTSIDE RECORDS SUMMARY | ~2019-10-10 | XMS | Encounter Summary ---
Demographics + + + | Address | [address] | | | [place] [address] | + + + | Home Phone [...] Providers + +------+ + | Care Supervisor Bottle Machines Name | Role | Phone | + [...] + | 10/29/ | Telephone | [facility] | Sj Valdes MD | Appointment | | 2013 | | NEUROSURGERY [address] | [address] | (Increased | | | | [address] | [place] [address] | pain-requesting | | | | [place] | [phone] | [facility] | | | | [address] | | | | | | [phone] | | | +--------+ + + + [...] [place] | | | | | | [address] | | | | | | | | +--------+---------+ + + + documented as of this encounter Visit Diagnoses Not on filedocumented in this encounter"
--- OUTSIDE RECORDS SUMMARY | ~2019-10-10 | XMS | Encounter Summary ---
Demographics + + + | Address | [address] | | | [place] [address] | + + + | Home Phone [...] + | Author | [facility] [email or web address] (Historical as of | | | 06-16-19) | + + + | Organization | [facility] (Historical as of | | | [...] Providers + +------+ + | Care Watch Repairer Apprentice Name | Role | Phone | + +------+ + | Romy De La Paz MD | PCP | | + +------+ + Encounter Details +--------+ + + + + | Date | Type | Department | Care Team | Description | +--------+ + + + + | 08/03/ | Hospital | [facility] | Maykel Hutchins MD | 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
--- OUTSIDE RECORDS SUMMARY | ~2019-10-10 | XMS | Encounter Summary ---
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 | [address] | [place] | [phone] | | [facility] | | [address] | | | - IMAGING | | [...]
--- OUTSIDE RECORDS SUMMARY | ~2019-10-10 | XMS | Encounter Summary ---
Demographics + + + | Address | [address] | | | [place] [address] | + + + | Home Phone [...] Team Providers + +------+ + | Care Physical Design Engineer Name | Role | Phone [...] | | 2012 | | [facility] | [address] | (Dr. Holbrook) | | | | [address] | [address] | | | | | [place] | [place] | | | | | [id number] | [address] | | | | | [facility], | [phone] | | | | | [place] [address] | | | | | | [phone] | | | +--------+ + + + [...]
--- OUTSIDE RECORDS SUMMARY | ~2019-10-10 | XMS | Encounter Summary ---
Demographics + + + | Address | [address] | | | [place] [address] | + + + | Home Phone [...] Team Providers + +------+ + | Care Seals Engraver Name | Role | Phone | + [...] | 07/19/ | Telephone | [facility] | Gabi Guzman | Imaging Only | | 2019 | | [facility] | [address] | | | | | ORTHOPEDIC SPINE | [address] | | | | | [address] [place] | [place] [address] | | | | | [place], [place] | [phone] | | | | | [address] | | | | | | [phone] | | | +--------+ + + + [...] [place] | | | | | | [address] | | | | | | | | +--------+---------+ + + + documented as of this encounter Visit Diagnoses Not on filedocumented in this encounter"
--- OUTSIDE RECORDS SUMMARY | ~2019-10-10 | XMS | Encounter Summary ---
Demographics + + + | Address | [address] | | | [place] [address] | + + + | Home Phone [...] Team Providers + +------+ + | Care Silverware Buffer Name | Role | Phone | + +------+ + | Wendi Aiken | PCP | | + +------+ + Encounter Details +--------+ + + + + | Date | Type | Department | Care Team | Description | +--------+ + + + + | 12/28/ | Hospital | [facility] | Conversion | Diagnosis unknown | | 2018 | Encounter | CONVERSION [address] | Transaction, | | | | | [address] | Provider Unknown | | | | | [place], [place] | [phone] | | | | | [address] | | | | | | [phone] | | | +--------+ + + + [...] [place] | | | | | | [address] | | | | | | | [...]
--- OUTSIDE RECORDS SUMMARY | ~2019-10-10 | XMS | Encounter Summary ---
Demographics + + + | Address | [address] | | | [place] [address] | + + + | Home Phone [...] Providers + +------+ + | Care Health Record Technician Name | Role | Phone | [...] 2013 | | PHYSIATRY [address] | DERRICK CAR OPERATOR | | | | | [place], | | | | | | [place] [address] | | | | | | [phone] | | | +--------+ + + + [...] [place] | | | | | | [address] | | | | | | | | +--------+---------+ + + + documented as of this encounter Visit Diagnoses Not on filedocumented in this encounter"
--- OUTSIDE RECORDS SUMMARY | ~2019-10-10 | XMS | Encounter Summary ---
Demographics + + + | Address | [address] | | | [place] [address] | + + + | Home Phone [...] Team Providers + +------+ + | Care Emery Wheel Worker Name | Role | Phone | [...] [address] | | | | | [facility] [address] | [address] [facility], | | | 08/07/ | | 8th [place], [place] | [place] [address] | | | 2004 | | [address] | [phone] | | | | | [phone] | | | +--------+ + + + [...] [place] | | | | | | [address] | | | | | | | | +--------+---------+ + + + documented as of this encounter Visit Diagnoses Not on filedocumented in this encounter"
--- OUTSIDE RECORDS SUMMARY | ~2019-10-10 | XMS | Encounter Summary ---
Demographics + + + | Address | [address] | | | [place] [address] | + + + | Home Phone [...] Team Providers + +------+ + | Care Concrete Paving Supervisor Name | Role | Phone | + +------+ + | Wendi Aiken | PCP | | + +------+ + Encounter Details +--------+ + + + + | Date | Type | Department | Care Team | Description | +--------+ + + + + | 04/06/ | Hospital | [facility] | Nick Martinez, | Lumbar radiculopathy | | 2018 | Encounter | MED CTR XRAY [address] | PA-C [address] | | | | | [place] | [address] [place] | | | | | [place] [address] | [place] [address] | | | | | [phone] | [phone] | | | | | | | | | | | | Dry Cleaning Machine Operator Helper, [facility] | | +--------+ + + + [...] [place] | | | | | | [address] | | | | | | | [...] 1:20 | | | | | ONCE, [facility] 04/06/18 at 1330, For 1 | [...] | | | | | Other, ONCE, [facility] 04/06/18 at 1330, | | PM PDT | | | | | For 1 dose | | | | | | + +-------+ +-------+---+---+ +---+---+ | | | +---+---+ + +-------+ +-------+---+---+ | lidocaine (PF) 1% injection 2 | Given | 04/06/20 | 2 mLs | | | | mL 2 mL, Other, ONCE, [facility] 04/06/18 | | 18 1:20 | [...] | | (Comment | | Intradermal, ONCE, [facility] 04/06/18 at | | PM PDT | | | ) | | 1330, For 1 dose | | | | | | + +-------+ +-------+---+ + +---+---+ | | | +---+---+ documented in this encounter"
--- OUTSIDE RECORDS SUMMARY | ~2019-10-10 | XMS | Encounter Summary ---
Demographics + + + | Address | [address] | | | [place] [address] | + + + | Home Phone [...] Providers + +------+ + | Care Customer Support Representative Name | Role | Phone | [...] | | [address] | [place] [address] | | | | | [place] | [phone] | | | | | [address] | | | | | | [phone] | | | +--------+ + + + [...] [place] | | | | | | [address] | | | | | | | | +--------+---------+ + + + documented as of this encounter Visit Diagnoses Not on filedocumented in this encounter"
--- OUTSIDE RECORDS SUMMARY | ~2019-10-10 | XMS | Encounter Summary ---
Demographics + + + | Address | [address] | | | [place] [address] | + + + | Home Phone [...] Team Providers + +------+ + | Care Art Historian Name | Role | Phone | + [...] Provider Unknown | | | | | [place], [place] | | | | | | [address] | (Fax) | | | | | [phone] | | | +--------+ + + + [...] [place] | | | | | | [address] | | | | | | | [...]
--- OUTSIDE RECORDS SUMMARY | ~2019-10-10 | XMS | Encounter Summary ---
Demographics + + + | Address | [address] | | | [place] [address] | + + + | Home Phone [...] Team Providers + +------+ + | Care Cargo Trimmer Name | Role | Phone | + +------+ + | Wendi Aiken | PCP | | + +------+ + Encounter Details +--------+ + + + + | Date | Type | Department | Care Team | Description | +--------+ + + + + | 12/28/ | Hospital | [facility] | Conversion | Diagnosis unknown | | 2018 | Encounter | CONVERSION [address] | Transaction, | | | | | [address] | Provider Unknown | | | | | [place], [place] | [phone] | | | | | [address] | | | | | | [phone] | | | +--------+ + + + [...] [place] | | | | | | [address] | | | | | | | [...]
--- OUTSIDE RECORDS SUMMARY | ~2019-10-10 | XMS | Encounter Summary ---
Demographics + + + | Address | [address] | | | [place] [address] | + + + | Home Phone [...] Providers + +------+ + | Care Analytical Data Scientist Name | Role | Phone | [...] Thoracic or | [place], | [address] | | | | | lumbosacral | Shay Mukherjee MD | [place], | | | | | neuritis or | [address] | [place] | | | | | | ST [place] | [address] | | | | | radiculitis, | [place], [place] | Phone: | | | | | unspecified | [address] | [phone] | | | | | Procedures | Phone: | Fax: | | | | | [place] INJECT | [phone] | [phone] | | | | | ANES/STEROID | Fax: | | | | | | FORAMEN | [phone] | | | | | | LUMBAR/SACRA | | | | | | | L W IMG | | | | | | | GUIDE ,1 | | | | | | | LEVEL [place] | | | | | | | [...] + + | 04/18/ | Hospital | [facility] | [place], | Left lumbar | | 2013 | Encounter | MED CTR XRAY [address] | [address] | radiculopathy; | | | | [place] | [address], | Chronic low back | | | | [place] [address] | [place] [address] | pain; Facet | | | | [phone] | [phone] | arthritis of lumbar | | | | | | region; Foraminal | | | | | [address] [facility] | stenosis of lumbar | | | [...] [place] | | | | | | [address] | | | | | | | [...] ICD-9 Code 724.4 [address] | [facility] | | Joanne presents to the fluoroscopy suite for a [facility] | | fluoroscopically-guided left L5-S1 transforaminal [...] [address] | [place] | [phone] | | [facility] | | [address] | | | - IMAGING | | [...]
--- OUTSIDE RECORDS SUMMARY | ~2019-10-10 | XMS | Encounter Summary ---
Demographics + + + | Address | [address] | | | [place] [address] | + + + | Home Phone [...] Providers + +------+ + | Care Head Transfer Clerk Name | Role | Phone | + +------+ + PCP | Unavailable | + +------+ + Encounter Details +--------+ + + + + | Date | Type | Department | Care Team | Description | +--------+ + + + + | 08/31/ | Hospital | [facility] | | | | 2010 | Encounter | MED CTR LABORATORY | | | | | | [address] | | | | | | [place] | | | | | | [address] | | | | | | [phone] | | | +--------+ + + + [...] [place] | | | | | | [address] | | | | | | | [...] + | [facility] | [address] | [place] | [phone] | | [facility] | | [address] | | | - LABORATORY | | | | + + + + + | [facility] | [address] | [place] | | | [facility] | | [address] | | | - LABORATORY | | | | + + + + + documented in this encounter Visit Diagnoses Not on filedocumented in this encounter"
--- OUTSIDE RECORDS SUMMARY | ~2019-10-10 | XMS | Encounter Summary ---
Demographics + + + | Address | [address] | | | [place] [address] | + + + | Home Phone [...] Providers + +------+ + | Care Research Center Partner Name | Role | Phone | + [...] | | | | | | | AR SURG | | | | | | | IMPLNT | | | | | | | NEUROELECT,E | | | | | | | PIDURAL AR | | | | | | | IMPLANT | | | | | | | NEUROSTIM/RE | | | | | | | CEIVER AR | | | | | | | [...] + + | 08/03/ | Surgery | [facility] | Maykel Hutchins MD | LAMINOTOMY THORACIC | | 2019 | | [facility] | [address] | / LUMBAR W/ | | | | OPERATING ROOM [address] | [place] | PLACEMENT SPINAL | | | | [address] | [place] [address] | CORD STIMULATOR | | | | [place] | [phone] | | | | | [address] | | | | | | [phone] | | | +--------+---------+ + + + [...] note might be different from logan phillips. [facility]. 08/04/2019 DISCHARGE SUMMARY PATIENT NAME: Kori Mcintosh-Fawthrop : 1945 TODAY'S DATE: 08/16/2019 Primary Care Physician: oRmy De La Paz MD DATE OF ADMISSION: [...] by elevating your feet Date Last Reviewed: 6112-2782 [employer]. [address] [place] [address]. All righ ts reserved. This information is not intended as a substitute for professional medical care. Always follow your healthcare professional's instructions. Acetaminophen; Hydrocodone tablets or capsules Brand Names: Anexsia, Lorcet, Lorcet HD, Lorcet Plus, Lortab, [place], Verdrocet, Vicodin, Vi codin ES, Vicodin HP, [...] information carefully each time. Talk to your boat dock operator regarding the use of this medicine in children. Special care may be needed. What side effects may I notice from receiving this medicine? Side effects that you should report to your doctor or health lead care manager as soon as p ossible: allergic [...] attention (report to your doctor or health lead care manager if they continue or are bothersome): [...] official disposal site. Contact the [employer] at [phone] or your [facility] to find a site. If you [...] this medicine? Tell your doctor or health lead care manager if your pain does not go [...] MSW - 08/04/2019 2:12 PM PDTCase manager cost sent out Home Health order to Kadi [...] her up today to go home to [facility]. Past Medical History: Diagnosis Date [...] 100 mg Oral BID PRN Julien Guzman ALTERNATIVE MEDICINE PRACTITIONER HYDROcodone-acetaminophen (NORCO) 10-325 mg per tablet 1 tablet 1 tablet Oral Q4H PRN Julien Guzman, ALTERNATIVE MEDICINE PRACTITIONER 1 tablet at 08/04/19 0502 HYDROmorphone (DILAUDID) injection 0.2-0.4 mg 0.2-0.4 mg Intravenous Q1H PRN Maykel ortiz MD 0.2 mg at 08/03/19 1700 methocarbamol (ROBAXIN) tablet 1,500 mg 1,500 mg Oral Q6H PRN RENATO DavisP ondansetron (ZOFRAN ODT) disintegrating tablet 4 mg 4 mg Oral Q6H PRN Julien Guzman ALTERNATIVE MEDICINE PRACTITIONER rOPINIRole (REQUIP) tablet 4 mg 4 mg Oral 4x Daily PRN Maykel Hutchins MD senna (SENOKOT) tablet 8.6 mg 8.6 mg Oral BID PRN Julien Guzman ALTERNATIVE MEDICINE PRACTITIONER sodium chloride 0.45% (1/2 NS) infusion Intravenous Continuous Maykel Hutchins MD 100 mL /hr at 08/03/19 1342 950 mL at 08/03/19 1342 sodium chloride 0.45% (1/2 NS) infusion Intravenous Continuous Julien Guzman ALTERNATIVE MEDICINE PRACTITIONER 100 m L/hr at 08/04/19 0057 Allergies [...] [place] | | | | | | [address] | | | | | | | [...] | | | Needs | | | CORPORATE WELLNESS COORDINATOR | | | reques | | | [...] | | POC | performed at [facility];[address] | | LABORATORY | | | | [address];[place], [place] | | | | | | [address] | | | | + + + + + + + + | Specimen | + + | | + + + + + + + | Performing | Address | City/State/Zipcode | Phone Number | | Organization | | | | + + + + + | [facility] | [address] | [place] [address] | [phone] | + + + + + POC Glucose (08/03/2019 4:15 PM PDT) + + + + + + | Component | Value | Ref Range | Performed | Pathologist | | | | | At | Signature | + + + + + + | Glucose, | 99Comment: Testing | 65 - 99 mg/dL | [facility] | | | POC | performed at [facility];[address] | | LABORATORY | | | | [address];[place] | | | | | | [address] | | | | + + + + + + + + | Specimen | + + | | + + + + + + + | Performing | Address | City/State/Zipcode | Phone Number | | Organization | | | | + + + + + | [facility] | [address] | [place] [address] | [phone] | + + + + + POC [...] | | POC | performed at [facility];[address] | | LABORATORY | | | | [address];[place], [place] | | | | | | [address] | | | | + + + + + + + + | Specimen | + + | | + + + + + + + | Performing | Address | City/State/Zipcode | Phone Number | | Organization | | | | + + + + + | [facility] | [address] | [place] [address] | [phone] | + + + + + POC [...] | | POC | performed at [facility];[address] | | LABORATORY | | | | [address];[place] | | | | | | [address] | | | | + + + + + + + + | Specimen | + + | | + + + + + + + | Performing | Address | City/State/Zipcode | Phone Number | | Organization | | | | + + + + + | [facility] | [address] [facility] [facility] | [place] [address] | [phone] | + + + + + LINSEY [...] | | POC | performed at [facility];[address] | | LABORATORY | | | | [address];[place] | | | | | | [address] | | | | + + + + + + + + | Specimen | + + | | + + + + + + + | Performing | Address | City/State/Zipcode | Phone Number | | Organization | | | | + + + + + | [facility] | [address] | [place] [address] | [phone] | + + + + + POC Glucose (08/03/2019 9:14 AM PDT) + + + + + + | Component | Value | Ref Range | Performed | Pathologist | | | | | At | Signature | + + + + + + | Glucose, | 80Comment: Testing | 65 - 99 mg/dL | [facility] | | | POC | performed at [facility];[address] | | LABORATORY | | | | [address];[place] | | | | | | [address] | | | | + + + + + + + + | Specimen | + + | | + + + + + + + | Performing | Address | City/State/Zipcode | Phone Number | | Organization | | | | + + + + + | [facility] | [address] | [place] [address] | [phone] | + + + + + Type [...] + + + | BB BAND | [id number] | | [facility] | | | | | | LABORATORY | | + + + + + + | BB BAND | Testing performed at | | [facility] | | | | [facility];[address] | | LABORATORY | | | | [address]rzej;[place] [address] | | | | + + + + + + + + | Specimen | + + | Blood | + + + + + + + | Performing | Address | City/State/Zipcode | Phone Number | | Organization | | | | + + + + + | [facility] | [address] | [place] [address] | [phone] | + + + + + POC [...] | | POC | performed at [facility];[address] | | LABORATORY | | | | [address];[place], [place] | | | | | | [address] | | | | + + + + + + + + | Specimen | + + | | + + + + + + + | Performing | Address | City/State/Zipcode | Phone Number | | Organization | | | | + + + + + | [facility] | [address] | [place] [address] | [phone] | + + + + + documented [...] | | | | | | [facility] 08/03/19 at 1007, Intra-op | | [...]
--- OUTSIDE RECORDS SUMMARY | ~2019-10-10 | XMS | Encounter Summary ---
Demographics + + + | Address | [address] | | | [place] [address] | + + + | Home Phone [...] Providers + +------+ + | Care Director Field Services Name | Role | Phone | + +------+ + | Miquel Calhoun MD | PCP | | + +------+ + Encounter Details +--------+ + + + + | Date | Type | Department | Care Team | Description | +--------+ + + + + | 09/18/ | Hospital | [facility] | Shay Dietz | | | 2012 | Encounter | MED CTR XRAY [address] | [address], [address] | | | | | [place] | [place], [place] | | | | | [place] [address] | [address] | | | | | [phone] | | | +--------+ + + + [...] [place] | | | | | | [address] | | | | | | | | +--------+---------+ + + + documented as of this encounter Visit Diagnoses Not on filedocumented in this encounter"
--- OUTSIDE RECORDS SUMMARY | ~2019-10-10 | XMS | Encounter Summary ---
Demographics + + + | Address | [address] | | | [place] [address] | + + + | Home Phone [...] Team Providers + +------+ + | Care Emergency Care Attendant Name | Role | Phone | [...] | | | | CENTER [address] | [address] | Weakness | | | | [place] | [place] | | | | | [address] | [address] | | | | | [phone] | | | +--------+ + + + [...] [place] | | | | | | [address] | | | | | | | [...] [address] | [place] | [phone] | | [facility] | | [address] | | | - LABORATORY | | | | + + + + + | [address] | [address] | [place] | | | [facility] | | [address] | | | - LABORATORY | | [...] [facility]LEX | | | | | | [facility] | | | | | | [...] + | [facility] | [address] | [place] | [phone] | | [facility] | | [address] | | | - LABORATORY | | | | + + + + + | [facility] | [address] | [place], [place] | | | [facility] | | [address] | | | - LABORATORY | | [...] (H) | 7 - 18 mg/dL | [place] | | | | | | [facility] | | | | | | MEDICAL | | | | | | CENTER - | | | | | | LABORATORY | | + + + + + + | Creatinine | 0.75 | 0.60 - 1.30 | [place] | | | | | mg/dL | [facility] | | | | | | MEDICAL | | | | | | CENTER - | | | | | | LABORATORY | | + + + + + + | eGFR if not | >60Comment: GLOMERULAR | >=60 | [place] | | | | FILTRATION | mL/min/1.73m2 | [facility] | | | SPANISH | RATE,ESTIMATED | | MEDICAL | | | | mL/min/1.83x9Axyc than | | CENTER - | | [...] + | [facility] | [address] | [place], [place] | [phone] | | [facility] | | [address] | | | - LABORATORY | | | | + + + + + | [facility] | [address] | [place], [place] | | | [facility] | | [address] | | | - LABORATORY | | [...] | Basophils | | K/uL | [facility] | | | | | | MEDICAL [...] + | [facility] | [address] | [place] | [phone] | | [facility] | | [address] | | | - LABORATORY | | | | + + + + + | [facility] | [address] | [place] | | | [facility] | | [address] | | | - LABORATORY | | [...] + | [facility] | [address] | [place], [place] | [phone] | | [facility] | | [address] | | | - LABORATORY | | | | + + + + + | [facility] | [address] | [place], [place] | | | [facility] | | [address] | | | - LABORATORY | | [...]
--- OUTSIDE RECORDS SUMMARY | ~2019-10-10 | XMS | Encounter Summary ---
Demographics + + + | Address | [address] | | | [place] [address] | + + + | Home Phone [...] Team Providers + +------+ + | Care Butter Grader Name | Role | Phone | [...] | MRI Lumbar | [place], | [address] | | | | | Spine wo | [place] [address] | Phone: | | | | | Contrast | Phone: | [phone] | | | | | | [phone] | Fax: | | | | | | Fax: | [phone] | | | | | | [phone] | | +--------+--------+ + + + + Reason for Visit + + + | Reason | Comments | + + + | Follow-up | Discuss Injections | + + + Encounter Details +--------+---------+ + + + | Date | Type | Department | Care Team | Description | +--------+---------+ + + + | 04/03/ | Office | [facility] | Juan, Nick, | Lumbar radiculopathy | | 2018 | Visit | PHYSIATRY [address] | PA-C [address] | (Primary Dx); BACK | | | | [place], | [address] [place] | PAIN, LUMBAR; | | | | [place] [address] | [place] [address] | SACROILIITIS; DDD | | | | [phone] | [phone] | (degenerative disc | | | | [...] in this encounter Patient Instructions Patient Instructions iNck Martinez PA-C - 04/03/2018 11:20 AM PDT [...] of the procedure you must provide a service parts driver to take you home. For all [...] press against a nerve. Date Last Reviewed: 08/03/201519992807-9844 [employer]. [address] [place] [address], [place] [address]. All righ ts reserved. This information is [...] and working more hours due to the [employer] Round up. Her pain ba ck is [...] [place] | | | | | | [address] | | | | | | | [...]
--- OUTSIDE RECORDS SUMMARY | ~2019-10-10 | XMS | Encounter Summary ---
Demographics + + + | Address | [address] | | | [place] [address] | + + + | Home Phone [...] Team Providers + +------+ + | Care Mineral Surveying Technician Name | Role | Phone | [...] 2019 | | [facility] | [address] | [facility] | | | | ORTHOPEDIC SPINE | [place], | Healthcare Orders) | | | | [address] [place] | [place] [address] | | | | | [place] | [phone] | | | | | [address] | | | | | | [phone] | | | +--------+ + + + [...] [place] | | | | | | [address] | | | | | | | | +--------+---------+ + + + documented as of this encounter Visit Diagnoses Not on filedocumented in this encounter"
--- OUTSIDE RECORDS SUMMARY | ~2019-10-10 | XMS | Encounter Summary ---
Demographics + + + | Address | [address] | | | [place] [address] | + + + | Home Phone [...] Team Providers + +------+ + | Care Stenotype Machine Operator Name | Role | Phone [...] Vasquez VALDEZ | | | | | [phone] | [place] [address] | | +--------+ + + + + [...] | | | | | | [address] [facility] [place] | | | | | | [address] | | | | | | | [...]
--- OUTSIDE RECORDS SUMMARY | ~2019-10-10 | XMS | Encounter Summary ---
Demographics + + + | Address | [address] | | | [place] [address] | + + + | Home Phone [...] Providers + +------+ + | Care Process Architect Name | Role | Phone | [...] | Chest | Referring | [place] [address] | | | | | pressure | Provider Per | [address] | | | | | Procedures | Patient NO | [address] | | | | | [place] NEW | REFERRING | [place], [place] | | | | | PATIENT | PROVIDER PER | [address] Phone: | | | | | LEVEL V [place] | PT | [phone] | | | | | OFFICE/OUTPT | | Fax: | | | | | | | [phone] | | | | | VISIT,EST,LE | | | | | | | GINA III [place] | | | | | | | OFFICE/OUTPT | | | | | | | | | | | | | | VISIT,EST,LE | | | | | | | VL IV [place] | | | | | | [...] | | 2015 | Visit | at [facility] [address] | [address] | unspecified type | | | | [place] Mailcode: | [address] [facility], | (Primary Dx); | | | | [address] | [place] [address] | Palpitations | | | | Health [facility] Healing, | [phone] | | | | | [facility] | | | | | | Floor [place], [place] | | | | | | [address] | | | | | | [phone] | | | +--------+---------+ + + + [...] per Dr. Fuchs's note. Tiago Blake DO Tech Intern Clinical open soaper tender/ Division of Cardiovascular Medicine Airam Nicole Md - 03/09/2016 3:27 PM PDT [facility] General Cardiology New Patient Evaluation Patient ID: [...] ED. She was then transf erred to [facility] in [facility] where she was put into the [...] every couple of weeks. She comes to [facility] today because she wants a second [...] | [facility] | [address] | [place], [place] | | | | [address] | [address] | | + + + + + documented in this encounter Visit Diagnoses + + | Diagnosis | + + | Chest pain, unspecified type - Primary | + + | Palpitations | + + documented in this encounter
--- OUTSIDE RECORDS SUMMARY | ~2019-10-10 | XMS | Encounter Summary ---
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
--- OUTSIDE RECORDS SUMMARY | ~2019-10-10 | XMS | Encounter Summary ---
Demographics + + + | Address | [address] | | | [place] [address] | + + + | Home Phone [...] Providers + +------+ + | Care Immigration Manager Name | Role | Phone | + +------+ + | Oxana Nye | PCP | | + +------+ + Encounter Details +--------+ + + + + | Date | Type | Department | Care Team | Description | +--------+ + + + + | 10/04/ | MyChart | Cardiology General | | Appointment Location | | 2015 | Encounter | at [facility] [address] | | Change: Effective | | | | [place] Mailcode: | | October 31 | | | | [address] | | | | | | Health and Healing, | | | | | | | | | | | | Floor [place], [place] | | | | | | [address] | | | | | | [phone] | | | +--------+ + + + [...]
--- OUTSIDE RECORDS SUMMARY | ~2019-10-10 | XMS | Encounter Summary ---
Demographics + + + | Address | [address] | | | [place] [address] | + + + | Home Phone | | + + + | Preferred Language | Unknown | + + + | Marital Status | Single | + + + | Hoahaoism Affiliation | NON | + + + | Race | White | + + + | Ethnic Group | Not or | + + + Author + + + | Author | [facility] | + + + | Organization | [facility] | + + + | Address | Unknown | + + + | Phone | Unavailable | + + + Support + + +---------+ + | Name | Relationship | Address | Phone | + + +---------+ + | Royce Menchaca | ECON | Unknown | | + + +---------+ + Care Team Providers + +------+ + | Care Book Cleaner Name | Role | Phone | [...] [address] | | | | | [place], [place] | [place], [place] | | | | | [address] | [address] | | | | | [phone] | [phone] | | | | | | | [...] + + + + | [facility] DEPARTMENT OF | [address] | [place] [address] | | | PATHOLOGY | [address] | | | + + + + + | [facility] DEPARTMENT OF | [facility] [address] | [place] [address] | | | PATHOLOGY | [address] [...] + + + + | [facility] DEPARTMENT OF | [address] | [place] [address] | | | PATHOLOGY | [address] | | | + + + + + | [facility] | [address] | [place] [address] | | | PATHOLOGY | [address] [...] + + + + | [facility] DEPARTMENT OF | [address] | [place] [address] | | | PATHOLOGY | [address] | | | + + + + + | [facility] DEPARTMENT OF | [address] | [place] [address] | | | PATHOLOGY | [address] [...] DEPARTMENT OF | [address] | [place] [address] | | | PATHOLOGY | [address] | | | + + + + + | [facility] DEPARTMENT OF | [address] | [place] [address] | | | PATHOLOGY | [address] [...] + + + + | [facility] DEPARTMENT OF | [address] | [place] [address] | | | PATHOLOGY | [address] | | | + + + + + | [facility] DEPARTMENT OF | [address] | [place] [address] | | | PATHOLOGY | [address] [...] | + + + + + | [facility] | [address] | [place] [address] | | | PATHOLOGY | [address] | | | + + + + + | [facility] | [facility] [address] | [place] [address] | | | PATHOLOGY | [address] | | | + + + + + PHOSPHORUS, PLASMA (06/30/2006 7:00 AM PDT) + +-------+ + + + | Component | Value | Ref Range | Performed | Pathologist | | | | | At | Signature | + +-------+ + + + | PHOSPHORUS, | 3.8 | 2.4 - 4.7 mg/dL | [facility] | | | PLASMA | | | [...] + + + + | [facility] DEPARTMENT OF | [address] | [place] [address] | | | PATHOLOGY | [address] | | | + + + + + | [facility] DEPARTMENT OF | [address] | [place] [address] | | | PATHOLOGY | [address] [...] + + | [facility] DEPARTMENT OF | [address] | [place], [place] [address] | | | PATHOLOGY | [address] | | | + + + + + | [facility] DEPARTMENT OF | [address] | [place] [address] | | | PATHOLOGY | [address] | | | + + + + + CREATININE, URINE (06/30/2006 4:45 AM PDT) + +-------+ + + + | Component | Value | Ref Range | Performed | Pathologist | | | | | At | Signature | + +-------+ + + + | CREATININE | 40.1 | mg/dL | [facility] | | | CONC UR | | [...] + + + + | [facility] DEPARTMENT OF | [address] | [place] [address] | | | PATHOLOGY | [address] | | | + + + + + | [facility] DEPARTMENT OF | [address] | [place] [address] | | | PATHOLOGY | [address] [...] + + + + | [facility] DEPARTMENT OF | [address] | [place] [address] | | | PATHOLOGY | [address] | | | + + + + + | [facility] DEPARTMENT OF | [address] | [place] [address] | | | PATHOLOGY | [address] [...] + + | [facility] DEPARTMENT OF | [address] | [place] [address] | | | PATHOLOGY | [address] | | | + + + + + | [facility] DEPARTMENT OF | [address] | [place] [address] | | | PATHOLOGY | [address] [...] | + + + + + | [facility] | [address] | [place] [address] | | | PATHOLOGY | [address] | | | + + + + + | [facility] | [address] [place] [address] | [place] [address] | | | PATHOLOGY | [address] [...] + | [facility] DEPARTMENT OF | [address] | [place] [address] | | | PATHOLOGY | [address] | | | + + + + + | [facility] DEPARTMENT OF | [address] | [place] [address] | | | PATHOLOGY | [address] [...] DEPARTMENT OF | [address] | [place] [address] | | | PATHOLOGY | [address] | | | + + + + + | [facility] DEPARTMENT OF | [address] | [place] [address] | | | PATHOLOGY | [address] | | | + + + + + PHOSPHORUS, PLASMA (06/29/2006 5:45 PM PDT) + +-------+ + + + | Component | Value | Ref Range | Performed | Pathologist | | | | | At | Signature | + +-------+ + + + | PHOSPHORUS, | 3.6 | 2.4 - 4.7 mg/dL | [facility] | | | PLASMA | | | [...] + + + + | [facility] DEPARTMENT | [address] | [place] [address] | | | PATHOLOGY | [address] | | | + + + + + | [facility] | [address] | [place] [address] | | | PATHOLOGY | [address] [...] | | | | Test performed by [facility] | | | | | | Laboratories. | | | | + + + + + + + + | Specimen | + + | | + + + + + + + | Performing | Address | City/State/Zipcode | Phone Number | | Organization | | | | + + + + + | [facility] | [address] | [place], [place] | | | [facility] | | [address] | | + + + + + [...] | + + + + + | [facility] | [address] | [place] [address] | | | PATHOLOGY | [address] | | | + + + + + | [facility] | [address] | [place] [address] | | | PATHOLOGY | [address] [...] DEPARTMENT OF | [address] | [place] [address] | | | PATHOLOGY | [address] | | | + + + + + | [facility] | [address] | [place] [address] | | | PATHOLOGY | [address] [...] [facility] | [address] | [place], [place] | | | [facility] | | [address] | | + + + + + [...] | | | | | performed at [facility] | | | | | | [facility] | | | | | | Laboratory. | | | | + + + + + + + + | Specimen | + + | | + + + + + + + | Performing | Address | City/State/Zipcode | Phone Number | | Organization | | | | + + + + + | [facility] | [address] | [place] [address] | | | LAB-MICRO | | | [...] DEPARTMENT OF | [address] | [place] [address] | | | PATHOLOGY | [address] | | | + + + + + | [facility] DEPARTMENT OF | [address] | [place] [address] | | | PATHOLOGY | [address] [...] | + + + + + | [facility] | [address] | [place] [address] | | | PATHOLOGY | [address] | | | + + + + + | [facility] | [address] [place] [address] | [place] [address] | | | PATHOLOGY | [address] [...] + + | [facility] DEPARTMENT OF | [address] | [place] [address] | | | PATHOLOGY | [address] | | | + + + + + | [facility] DEPARTMENT OF | [address] | [place] [address] | | | PATHOLOGY | [address] [...] + + + + | [facility] DEPARTMENT OF | [facility] | [place] [address] | | | PATHOLOGY | [address] | | | + + + + + | [facility] DEPARTMENT OF | [facility] | [place] [address] | | | PATHOLOGY | [address] [...] + + + + | [facility] DEPARTMENT OF | [address] | [place] [address] | | | PATHOLOGY | [address] | | | + + + + + | [facility] DEPARTMENT OF | [address] | [place] [address] | | | PATHOLOGY | [address] | | | + + + + + PHOSPHORUS, PLASMA (06/29/2006 6:55 AM PDT) + +---------+ + + + | Component | Value | Ref Range | Performed | Pathologist | | | | | At | Signature | + +---------+ + + + | PHOSPHORUS, | 2.2 (L) | 2.4 - 4.7 mg/dL | [facility] | | | PLASMA | | | [...] + + + + | [facility] DEPARTMENT OF | [facility] | [place] [address] | | | PATHOLOGY | [address] | | | + + + + + | [facility] DEPARTMENT OF | [address] | [place] [address] | | | PATHOLOGY | [address] [...] + + + + | [facility] DEPARTMENT OF | [address] | [place] [address] | | | PATHOLOGY | [address] | | | + + + + + | [facility] DEPARTMENT OF | [address] | [place] [address] | | | PATHOLOGY | [address] [...] DEPARTMENT OF | [address] | [place] [address] | | | PATHOLOGY | [address] | | | + + + + + | [facility] DEPARTMENT OF | [address] | [place] [address] | | | PATHOLOGY | [address] [...] + + + + | [facility] DEPARTMENT OF | [address] | [place] [address] | | | PATHOLOGY | [address] | | | + + + + + | [facility] | [address] | [place] [address] | | | PATHOLOGY | [address] [...] DEPARTMENT OF | [address] | [place] [address] | | | PATHOLOGY | [address] | | | + + + + + | [facility] DEPARTMENT OF | [address] | [place] [address] | | | PATHOLOGY | [address] [...] + + + + | [facility] DEPARTMENT OF | [address] | [place] [address] | | | PATHOLOGY | [address] | | | + + + + + | [facility] DEPARTMENT OF | [address] | [place] [address] | | | PATHOLOGY | [address] [...] 1.8 - 2.5 mg/dL | [facility] | | | LASMA | | | [...] + + + + | [facility] DEPARTMENT OF | [facility] | [place] [address] | | | PATHOLOGY | [address] | | | + + + + + | [facility] DEPARTMENT OF | [facility] | [place] [address] | | | PATHOLOGY | [address] [...] + + + + | [facility] DEPARTMENT OF | [address] | [place] [address] | | | PATHOLOGY | [address] | | | + + + + + | [facility] DEPARTMENT OF | [address] | [place] [address] | | | PATHOLOGY | [address] [...] | + + + + + | [facility] | [address] | [place] [address] | | | PATHOLOGY | [address] | | | + + + + + | [facility] | [address] | [place] [address] | | | PATHOLOGY | [address] [...] + + + + | [facility] DEPARTMENT OF | [address] | [place] [address] | | | PATHOLOGY | [address] | | | + + + + + | [facility] DEPARTMENT OF | [address] | [place] [address] | | | PATHOLOGY | [address] [...] | + + + + + | [facility] | [address] | [place] [address] | | | PATHOLOGY | [address] | | | + + + + + | [facility] | [facility] | [place] [address] | | | PATHOLOGY | [address] [...] + + + + | [facility] DEPARTMENT OF | [address] | [place] [address] | | | PATHOLOGY | [address] | | | + + + + + | [facility] DEPARTMENT OF | [address] | [place] [address] | | | PATHOLOGY | [address] [...] + + + + | [facility] DEPARTMENT OF | [facility] | [place] [address] | | | PATHOLOGY | [address] | | | + + + + + | [facility] DEPARTMENT OF | [address] | [place] [address] | | | PATHOLOGY | [address] [...] + + + + | [facility] DEPARTMENT OF | [address] | [place] [address] | | | PATHOLOGY | [address] | | | + + + + + | [facility] DEPARTMENT OF | [address] | [place] [address] | | | PATHOLOGY | [address] [...] + + + + | [facility] DEPARTMENT OF | [address] | [place] [address] | | | PATHOLOGY | [address] | | | + + + + + | [facility] | [address] | [place] [address] | | | PATHOLOGY | [address] [...] + + + | Test performed at [facility] | | + + + + + + + + | Performing | Address | City/State/Zipcode | Phone Number | | Organization | | | | + + + + + | [facility] | [address] | [place] [address] | | | LABORATORY | | | [...] + + + | Test performed at [facility] | | + + + + + + + + | Performing | Address | City/State/Zipcode | Phone Number | | Organization | | | | + + + + + | [facility] | [address] | [place] [address] | | | LABORATORY | | | | + + + + + IOD-ORGANIC BASE CONFIRM (06/27/2006 11:55 AM PDT) + + | Specimen | + + | | + + + + + | Narrative | Performed At | + + + | Test performed at [facility] | [facility] | | | DEPARTMENT OF | | | PATHOLOGY | + + + + + + + + | Performing | Address | City/State/Zipcode | Phone Number | | Organization | | | | + + + + + | [facility] | [address] | [place] [address] | | | PATHOLOGY | [address] | | | + + + + + | [facility] | [address] | [place] [address] | | | PATHOLOGY | [address] [...] | | | | | performed at [facility] | | | | | | [facility] | | | | | | Laboratory. | | | | + + + + + + + + | Specimen | + + | | + + + + + + + | Performing | Address | City/State/Zipcode | Phone Number | | Organization | | | | + + + + + | [facility] | [address] | [place] [address] | | | LAB-MICRO | | | [...] | + + + + + | [facility] | [address] | [place] [address] | | | LABORATORY | | | [...] DEPARTMENT OF | [address] | [place] [address] | | | PATHOLOGY | [address] | | | + + + + + | [facility] DEPARTMENT OF | [address] | [place] [address] | | | PATHOLOGY | [address] [...] | + + + + + | [facility] | [address] | [place] [address] | | | PATHOLOGY | [address] | | | + + + + + | [facility] | [address] [place] [address] | [place] [address] | | | PATHOLOGY | [address] [...] + + + + | [facility] DEPARTMENT OF | [address] | [place] [address] | | | PATHOLOGY | [address] | | | + + + + + | [facility] DEPARTMENT OF | [address] | [place] [address] | | | PATHOLOGY | [address] [...] 1.19Comment: | 0.90 - 1.20 INR | [facility] | | | | PT INR Therapeutic [...] | + + + + + | [facility] | [address] | [place] [address] | | | PATHOLOGY | [address] | | | + + + + + | [facility] DEPARTMENT | [address] | [place] [address] | | | PATHOLOGY | [address] [...] + + + + | [facility] DEPARTMENT OF | [address] | [place] [address] | | | PATHOLOGY | [address] | | | + + + + + | [facility] DEPARTMENT OF | [address] | [place] [address] | | | PATHOLOGY | [address] [...] DEPARTMENT OF | [address] | [place] [address] | | | PATHOLOGY | [address] | | | + + + + + | [facility] DEPARTMENT OF | [address] | [facility] [place] [address] | | | PATHOLOGY | [address] [...] DEPARTMENT OF | [address] | [place] [address] | | | PATHOLOGY | [address] | | | + + + + + | [facility] | [address] | [place] [address] | | | PATHOLOGY | [address] [...] | | | | | performed at [facility] | | | | | | [facility] | | | | | | Laboratory. | | | | + + + + + + + + | Specimen | + + | | + + + + + + + | Performing | Address | City/State/Zipcode | Phone Number | | Organization | | | | + + + + + | [facility] | [address] | [place] [address] | | | LAB-MICRO | | | [...] | | | | | performed at [facility] | | | | | | [facility] | | | | | | Laboratory. | | | | + + + + + + + + | Specimen | + + | | + + + + + + + | Performing | Address | City/State/Zipcode | Phone Number | | Organization | | | | + + + + + | [facility] | [address] | [place] [address] | | | LAB-MICRO | | | [...] DEPARTMENT OF | [address] | [place] [address] | | | PATHOLOGY | [address] | | | + + + + + | [facility] | [address] | [place] [address] | | | PATHOLOGY | [address] [...] + + + | [facility] | [address] | [place] [address] | | | LABORATORY | | | [...] | | | [facility] | [facility] | | | | | | Laboratories. | | | | + + + + + + + + | Specimen | + + | | + + + + + + + | Performing | Address | City/State/Zipcode | Phone Number | | Organization | | | | + + + + + | [facility] | [address] | [place] [address] | | | LABORATORY | | | [...] | + + + + + | [facility] | [address] | [place] [address] | | | LABORATORY | | | [...] | | | | | performed at [facility] | | | | | | [facility] | | | | | | Laboratory. | | | | + + + + + + + + | Specimen | + + | | + + + + + + + | Performing | Address | City/State/Zipcode | Phone Number | | Organization | | | | + + + + + | [facility] | [address] | [place] [address] | | | LAB-MICRO | | | [...] | + + + + + | [facility] | [address] | [place] [address] | | | PATHOLOGY | [address] | | | + + + + + | [facility] | [facility] [facility] | [place] [address] | | | PATHOLOGY | [address] [...] + + + + | [facility] DEPARTMENT OF | [address] | [place] [address] | | | PATHOLOGY | [address] | | | + + + + + | [facility] DEPARTMENT OF | [address] | [place] [address] | | | PATHOLOGY | [address] [...] + + + + | [facility] DEPARTMENT OF | [address] | [place] [address] | | | PATHOLOGY | [address] | | | + + + + + | [facility] DEPARTMENT OF | [address] [place] [address] | [place] [address] | | | PATHOLOGY | [address] [...] + + + + | [facility] DEPARTMENT OF | [address] | [place] [address] | | | PATHOLOGY | [address] | | | + + + + + | [facility] DEPARTMENT OF | [address] | [place] [address] | | | PATHOLOGY | [address] [...] | + + + + + | [facility] | [address] | [place] [address] | | | PATHOLOGY | [address] | | | + + + + + | [facility] DEPARTMENT OF | [address] | [place] [address] | | | PATHOLOGY | [address] [...] + + + + | [facility] DEPARTMENT OF | [address] | [place] [address] | | | PATHOLOGY | [address] | | | + + + + + | [facility] DEPARTMENT OF | [address] | [place] [address] | | | PATHOLOGY | [address] [...] + + + + | [facility] DEPARTMENT OF | [address] | [place] [address] | | | PATHOLOGY | [address] | | | + + + + + | [facility] DEPARTMENT OF | [address] | [place] [address] | | | PATHOLOGY | [address] [...] 247 | 150 - 400 K/cu | [facility] | | | COUNT | | mm [...] + + + + | [facility] DEPARTMENT OF | [facility] | [place] [address] | | | PATHOLOGY | [address] | | | + + + + + | [facility] DEPARTMENT OF | [address] | [place] [address] | | | PATHOLOGY | [address] [...] | + + + + + | [facility] | [address] | [place] [address] | | | PATHOLOGY | [address] | | | + + + + + | [facility] | [address] | [place] [address] | | | PATHOLOGY | [address] [...] | | | | the [facility] LabManual: | | | | | | [email or web address] | | | | | | [...] | + + + + + | [facility] | [address] | [place] [address] | | | PATHOLOGY | [address] | | | + + + + + | [facility] | [address] | [place] [address] | | | PATHOLOGY | [address] [...] | + + + + + | [facility] | [address] | [place] [address] | | | PATHOLOGY | [address] | | | + + + + + | [facility] | [address] | [place] [address] | | | PATHOLOGY | [address] [...] + + + + | [facility] DEPARTMENT OF | [facility] | [place] [address] | | | PATHOLOGY | [address] | | | + + + + + | [facility] DEPARTMENT OF | [facility] | [place] [address] | | | PATHOLOGY | [address] [...] + + + + | [facility] DEPARTMENT OF | [address] | [place] [address] | | | PATHOLOGY | [address] | | | + + + + + | [facility] DEPARTMENT OF | [address] | [place] [address] | | | PATHOLOGY | [address] [...] | + + + + + | [facility] | [address] | [place] [address] | | | PATHOLOGY | [address] | | | + + + + + | [facility] DEPARTMENT OF | [address] | [place] [address] | | | PATHOLOGY | [address] [...] | 32.0Comment: | 26.0 - 36.0 | [facility] | | | | [facility] [...] | + + + + + | [facility] | [address] | [place] [address] | | | PATHOLOGY | [address] | | | + + + + + | [facility] | [facility] | [place] [address] | | | PATHOLOGY | [address] [...] DEPARTMENT OF | [address] | [place] [address] | | | PATHOLOGY | [address] | | | + + + + + | [facility] DEPARTMENT | [address] | [place] [address] | | | PATHOLOGY | [address] [...] | + + + + + | [facility] | [address] | [place] [address] | | | PATHOLOGY | [address] | | | + + + + + | [facility] | [facility] | [place] [address] | | | PATHOLOGY | [address] [...] DEPARTMENT OF | [address] | [place] [address] | | | PATHOLOGY | [address] | | | + + + + + | [facility] DEPARTMENT | [address] | [place], [place] [address] | | | PATHOLOGY | [address] [...] | + + + + + | [facility] DEPARTMENT OF | [address] | [place] [address] | | | PATHOLOGY | [address] | | | + + + + + | [facility] DEPARTMENT OF | [address] | [place] [address] | | | PATHOLOGY | [address] [...] | + + + + + | [facility] | [address] | [place] [address] | | | PATHOLOGY | [address] | | | + + + + + | [facility] | [address] | [place] [address] | | | PATHOLOGY | [address] [...] | + + + + + | [facility] | [address] [facility] | [place] [address] | | | PATHOLOGY | [address] | | | + + + + + | [facility] | [address] [place] [address] | [place] [address] | | | PATHOLOGY | [address] [...] | + + + + + | [facility] | [address] [facility] | [place] [address] | | | PATHOLOGY | [address] | | | + + + + + | [facility] | [address] [facility] | [place] [address] | | | PATHOLOGY | [address] | | | + + + + + documented in this encounter Visit Diagnoses Not on filedocumented in this encounter"
--- OUTSIDE RECORDS SUMMARY | ~2019-10-10 | XMS | Encounter Summary ---
Demographics + + + | Address | [address] | | | [place] [address] | + + + | Home Phone [...] Team Providers + +------+ + | Care Furniture Inspector Name | Role | Phone | [...] + + | 07/24/ | Telephone | [facility] | Maykel Hutchins MD | Pre-op Question | | 2019 | | [facility] | [address] | | | | | ORTHOPEDIC SPINE | [place] | | | | | [address] [place] | [place] [address] | | | | | [place] | [phone] | | | | | [address] | | | | | | [phone] | | | +--------+ + + + [...] [place] | | | | | | [address] | | | | | | | | +--------+---------+ + + + documented as of this encounter Visit Diagnoses Not on filedocumented in this encounter"
--- OUTSIDE RECORDS SUMMARY | ~2019-10-10 | XMS | Encounter Summary ---
Demographics + + + | Address | [address] | | | [place] [address] | + + + | Home Phone [...] Providers + +------+ + | Care Occupational Therapist Home Based Name | Role | Phone | + +------+ + | Miquel Calhoun MD | PCP | | + +------+ + Encounter Details +--------+ + + + + | Date | Type | Department | Care Team | Description | +--------+ + + + + | 11/12/ | Telephone | [facility] | Khushbu Cortez, | | | 2013 | | [facility] | MICROSOFT WINDOWS ENGINEER [place], [place] | | | | | [address] | [address] | | | | | Alexandria Chamorro | | | | | | Bandar/[id number] [facility] | | | | | | [facility] | | | | | | [place] [address] | | | | | | [phone] | | | +--------+ + + + [...]
--- OUTSIDE RECORDS SUMMARY | ~2019-10-10 | XMS | Encounter Summary ---
Demographics + + + | Address | [address] | | | [place] [address] | + + + | Home Phone [...] Team Providers + +------+ + | Care Toy Assembly Supervisor Name | Role | Phone | + +------+ + | Romy De La Paz MD | PCP | | + +------+ + Encounter Details +--------+ + + + + | Date | Type | Department | Care Team | Description | +--------+ + + + + | 07/18/ | Hospital | [facility] | Makyel Hutchins MD | | | 2019 | Encounter | [facility] | [address] | | | | | [address] | [place], | | | | | [place], [place] | [place] [address] | | | | | [address] | [phone] | | | | | [phone] | | | +--------+ + + + [...] Decreased | | | | | | technician terminal and repeater current | Responsiveness (May | | | [...] [place] | | | | | | [address] | | | | | | | [...]
--- OUTSIDE RECORDS SUMMARY | ~2019-10-10 | XMS | Encounter Summary ---
Demographics + + + | Address | [address] | | | [place] [address] | + + + | Home Phone [...] Providers + +------+ + | Care Technical Account Representative Name | Role | Phone | [...] + + | 04/06/ | Telephone | [facility] | Nick Martinez, | Results, Imaging | | 2018 | | PHYSIATRY [address] | PA-C [address] | (MRI/Cancelled | | | | [place], | [address] [place] | Injection) | | | | [place] [address] | [place] [address] | | | | | [phone] | [phone] | | | | | | | [...] [place] | | | | | | [address] | | | | | | | | +--------+---------+ + + + documented as of this encounter Visit Diagnoses Not on filedocumented in this encounter"
--- OUTSIDE RECORDS SUMMARY | ~2019-10-10 | XMS | Encounter Summary ---
Demographics + + + | Address | [address] | | | [place] [address] | + + + | Home Phone [...] Team Providers + +------+ + | Care Skiver Sock Linings Name | Role | Phone | + [...] + + | 04/25/ | Emergency | [facility] | Billy Romo, | Concussion, without | | 2016 | | HOSPITAL EMERGENCY | [employer] [facility] | LOC, initial | | | | [place] [address] MEDICAL | [employer], | encounter (Primary | | | | [place], [place] | [place] [address] | Dx); Cervical | | | | [address] | [phone] | strain, acute, | | | | [phone] | | initial encounter | +--------+ + [...] sent through Care Everywhere.CERVICAL STRAIN , UNDERSTANDING (NAMIBIAN)CONCUSSION, AFTER (NAMIBIAN)CONCUSSION, COPING WITH (NAMIBIAN)manish disla in this encounter Medications at Time [...] [place] | | | | | | [address] | | | | | | | [...] L?MRN: | | | | | | [id number] | | | [id number] | | | his | | | [...] | | | St. | | | [place] | | | y H. | | [...] | | | St. | | | [place] | | | y | | | [...] | | | n, | | | DRY PAN OPERATOR, | | | DRY PAN OPERATOR | | | Primar | | | [...] Performed At | + + + | [address] | | | [place], [place] [address] | | | NAME: KORI HARMON DATE: 04/25/2017 | | | : 1945 PT GENDER: F ROOM: ER PHYSICIAN: | | | BILLY ROMO PID#: [id number] CC TO: MR#: | | | PROCEDURE: [...] [facility] | | [address] [facility] | | [place], [place] [address] | | | | | | NAME: KORI HARMON DATE: 04/25/2017 | | : 1945 PT GENDER: F ROOM: ER | | PHYSICIAN: BILLY ROMO PID#: [id number] | | CC TO: MR#: | | [...] Performed At | + + + | [address] | | | [place], [place] [address] | | | NAME: KORI HARMON DATE: 04/25/2017 | | | : 1945 PT GENDER: F ROOM: ER PHYSICIAN: | | | BILLY ROMO PID#: [id number] CC TO: MR#: | | | PROCEDURE: [...] Results In - 04/27/2017 9:10 AM PDT [facility] | | [address] [place] [address] | | [place], [place] [address] | | | | | | NAME: KORI HARMON DATE: 04/25/2017 | | : 1945 PT GENDER: F ROOM: ER | | PHYSICIAN: BILLY ROMO PID#: [id number] | | CC TO: MR#: | | [...] | + + + + + | [facility] | [address] | [place] [address] | [phone] | | HOSPITAL LABORATORY | | | [...] 99 | 70 - 110 mg/dL | [facility] | | [facility] | | | | | | [facility] | | | | | | LABORATORY | | + + + + + + | BUN | 21 | 5 - 26 mg/dL | [facility] | | | | | [facility] | | | | | | [facility]OSPITAL | | | | | | LABORATORY | | + + + + + + | Creatinine | 0.83 | >.60-<1.30 | [facility] | | | | | mg/dL | COMMUNITY | | | | | | HOSPITAL | | | | | | LABORATORY | | + + + + + + | eGFR if not | >60Comment: GLOMERULAR | >=60 | [facility] | | | | FILTRATION | mL/min/1.73m2 | [facility] | | | [facility] | RATE,ESTIMATED | | HOSPITAL | | | | mL/min/1.97u7Etwk than | | LABORATORY | | | [...] | + + + + + | [facility] | [address] | [place] [address] | [phone] | | HOSPITAL LABORATORY | | | | + + + + + CBC with Differential (04/25/2017 7:20 PM PDT) + + + + + + | Component | Value | Ref Range | Performed | Pathologist | | | | | At | Signature | + + + + + + | WBC | 6.1 | >4.5-<11.0 K/uL | [facility] | | | | | [...] | + + + + + | [facility] | [address] | [place] [address] | [phone] | | HOSPITAL LABORATORY | | | | + + + + + documented in this encounter Visit Diagnoses + + | Diagnosis | + + | Concussion, without LOC, initial encounter - Primary | + + | Cervical strain, acute, initial encounter | + + documented in this encounter
--- OUTSIDE RECORDS SUMMARY | ~2019-10-10 | XMS | Encounter Summary ---
Demographics + + + | Address | [address] | | | [place] [address] | + + + | Home Phone | | + + + | Preferred Language | Unknown | + + + | Marital Status | Single | + + + | Mormonism Affiliation | NON | + + + [...] Team Providers + +------+ + | Care Replenishment Analyst Name | Role | Phone | + +------+ + | Miquel Calhoun MD | PCP | | + +------+ + Encounter Details +--------+ + + + + | Date | Type | Department | Care Team | Description | +--------+ + + + + | 11/29/ | Documentati | [facility] | Khushbu Cortez, | | | 2013 | on | [facility] | DATA INTEGRITY SPECIALIST [facility] [place] | | | | | [address] | [address] | | | | | Alexandria Chamorro | | | | | | Bandar/[id number] [facility] | | | | | | [facility] | | | | | | [place] [address] | | | | | | [phone] | | | +--------+ + + + [...]
--- OUTSIDE RECORDS SUMMARY | ~2019-10-10 | XMS | Encounter Summary ---
Demographics + + + | Address | [address] | | | [place] [address] | + + + | Home Phone [...] Providers + +------+ + | Care Helper Shear Operator Name | Role | Phone | + +------+ + | Miquel Calhoun MD | PCP | | + +------+ + Encounter Details +--------+ + + + + | Date | Type | Department | Care Team | Description | +--------+ + + + + | 05/01/ | Hospital | [facility] | Shay Dietz | | | 2012 | Encounter | MED CTR XRAY [address] | [address], [address] | | | | | [place] | [facility] [place] | | | | | [place] [address] | [address] | | | | | [phone] | | | +--------+ + + + [...] [place] | | | | | | [address] | | | | | | | [...] + | [facility] Diagnostic Imaging | SPARTA | | Department [address] [facility] | [facility] | | [ rep [facility]] [ rep [facility] | | [facility]] Signed | - IMAGING | | | | | Patient Name: WAYNEKORI PARIS | | | Physician: OMID : 1945 Age: 67 Sex: F Unit | | | #: [id number] Exam Date: 05/01/13 Location: | | | IMG.INV Report #: [id number] Page: | | | %(RAD)RES..mtdd.print.filter("pg") of %(RAD) | | | RES..mtdd.print.filter("tpg") | | | | | | Accession Number: [id number] | | | PROCEDURE NOTE LUMBAR FACET [...] Transcribed | | | Date/Time: 05/09/2013 18:53 Theatre Director: | | | <<Signature on File>> | | | Shay Mukherjee | | | MD J [id number]/[id number] <Electronically signed by Shay Mukherjee | | | J Luis SALGADO> Shay Dietz MD 05/09/131812 | | | Theatre Director: Yudelka Fyonsgtdwqzdn88/10/131852 | | | | | + + + + + + + + | Performing | Address | City/State/Zipcode | Phone Number | | Organization | | | | + + + + + | [facility] | [address] | [place] | [phone] | | [facility] | | [address] | | | - IMAGING | | | | + + + + + documented in this encounter Visit Diagnoses Not on filedocumented in this encounter
--- OUTSIDE RECORDS SUMMARY | ~2019-10-10 | XMS | Encounter Summary ---
Demographics + + + | Address | [address] | | | [place] [address] | + + + | Home Phone [...] Team Providers + +------+ + | Care Breaker Tender Name | Role | Phone | + +------+ + | Miquel Calhoun MD | PCP | | + +------+ + Encounter Details +--------+ + + + + | Date | Type | Department | Care Team | Description | +--------+ + + + + | 11/12/ | Telephone | [facility] | Khushbu Cortez, | | | 2013 | | [facility] | THIMBLE PRESS OPERATOR [place], [place] | | | | | [address] | [address] | | | | | Alexandria Chamorro | | | | | | Bandar/[id number] [facility] | | | | | | [facility] | | | | | | [place] [address] | | | | | | [phone] | | | +--------+ + + + [...]
--- OUTSIDE RECORDS SUMMARY | ~2019-10-10 | XMS | Encounter Summary ---
Demographics + + + | Address | [address] | | | [place] [address] | + + + | Home Phone [...] Providers + +------+ + | Care Screw Driver Operator Name | Role | Phone | [...] | | | stenosis | B | [address] | | | | | | [place], [place] | Phone: | | | | | | [address] | [phone] | | | | | | Phone: | Fax: | | | | | | [phone] | [phone] | | | | | | Fax: | | | | | | | [phone] | | + +--------+ + + + + Encounter Details +--------+---------+ + + + | Date | Type | Department | Care Team | Description | +--------+---------+ + + + | 07/18/ | Office | [facility] | Denys Sibley, | Lumbar region | | 2018 | Visit | [facility] | DO [address] | somatic dysfunction | | | | [address] [place] | (Primary Dx); | | | | [address] [place] | [address] | Intractable back | | | | [place] | | pain; Encounter for | | | | [address] | | long-term use of | | | | [phone] | | opiate analgesic; | | | [...] Medical History: Diagnosis Date Acute renal failure ([facility]) April 2013 Anesthesia hallucinated after bladder repair Arthralgia Asthma Asthma Cancer ([facility]) 2004 breast Cerebrovascular accident (CVA) ([facility] [...] to physical therapy, mass age therapy, acupuncture, cattle care worker, along with recommended psychological counseling , either privately, or in group sessions offered by private care individuals, community serv ices, or mu-ism organizations. Appropriate referrals were made at patient [...] Will return to office in 4 weeks, [facility] was consulted and appears appropriate, Urine [...] with the passage of time. long term use is also associated with depressions, and [...] [place] | | | | | | [address] | | | | | | | [...]
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
--- OUTSIDE RECORDS SUMMARY | ~2019-10-10 | XMS | Encounter Summary ---
Demographics + + + | Address | [address] | | | [place] [address] | + + + | Home Phone [...] Team Providers + +------+ + | Care Pharmacy Data Analyst Name | Role | Phone | [...] | [address] | [place] | | | | | [address] [place], [place] | [place], [place] | | | | | [address] | [address] | | | | | [phone] | | | +--------+ + + + [...] [place] | | | | | | [address] | | | | | | | | +--------+---------+ + + + documented as of this encounter Visit Diagnoses Not on filedocumented in this encounter"
--- OUTSIDE RECORDS SUMMARY | ~2019-10-10 | XMS | Encounter Summary ---
Demographics + + + | Address | [address] | | | [place] [address] | + + + | Home Phone [...] Team Providers + +------+ + | Care Pasteurizer Name | Role | Phone | [...] as of this encounter Discharge Summaries Interface, Mobile Unit Assistant In - 08/03/2006 2:03 AM PDT [id number] ROSANA Suarez [id number] Admission Date: 06/26/2006 Discharge Date: 06/30/2006 Staff [...] up with her primary care doctor in [place] to get lab followup within the next [...] psychiatrist, Dr. Pham; his phone number is [phone]. She is to make a followup appointment with him within the next week. The patient is also to follow up with Dr. Kel Young, he is located as well in [place], [place], and is associated with [facility]. She is to follow up with him for repeat electrolytes including potassium, magnesium, and phosphorus within the next several days. Monroe Disla M.D. Sherita Madrid M.D., M.P.H. / [id number] / [id number] / [id number] / [phone] cc: * Dr. Pham [facility], [place] FAX: [phone] Kel Young M.D. Electronically signed by Sherita Madrid 08-02-2006 11:01:13 AM documented i n this encounter Plan of Treatment Not on filedocumented as of this encounter Visit Diagnoses Not on filedocumented in this encounter"
--- OUTSIDE RECORDS SUMMARY | ~2019-10-10 | XMS | Encounter Summary ---
Demographics + + + | Address | [address] | | | [place] [address] | + + + | Home Phone [...] Team Providers + +------+ + | Care Child Development Consultant Name | Role | Phone [...] | | | stenosis | B | [address] | | | | | | [place], [place] | Phone: | | | | | | [address] | [phone] | | | | | | Phone: | Fax: | | | | | | [phone] | [phone] | | | | | | Fax: | | | | | | | [phone] | | + +--------+ + + + + Encounter Details +--------+---------+ + + + | Date | Type | Department | Care Team | Description | +--------+---------+ + + + | 06/18/ | Office | [facility] | Denys Sibley, | SACROILIITIS | | 2018 | Visit | [facility] | DO [address] | (Primary Dx); | | | | [address] [place] | 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 Talk to your brush polisher regarding the use of this medicine in children. While this drug m ay be prescribed for children as young as newborns for selected conditions, precautions do a pply. What side effects may I notice from receiving this medicine? Side effects that you should report to your doctor or health career development coordinator as soon as p ossible: allergic reactions like skin rash, itching or hives, swelling of the face, lips, or tong ue breathing problems fast, irregular heartbeat high blood pressure pain that was controlled by narcotic pain medicine seizures Side effects that usually do not require medical attention (report to your doctor or health career development coordinator if they continue or are bothersome): anxious [...] phone number of your doctor or health career development coordinator and local hospital ready. You may need to have additional doses of this medicine. Each nasal spray contains a single dose. Some emergencies may require additional doses. After use, bring the treated person to the nearest hospital or call 911. Make sure the [facility] health career development coordinator knows that the person has received an [...] repair Arthralgia Asthma Asthma Cancer ([facility]) 2004 breast Cerebrovascular accident (CVA) ([facility]) no per pt Chronic back pain Chronic back pain Concussion 07/2015 Preceeded by seizure Constipation COPD (chronic obstructive pulmonary disease) ([facility]) Degenerative disc disease Depression Depression Diabetes mellitus [...] of lumbar spine 04/17/2014 Seizure ([facility]) one due to meds, two due to [...] to physical therapy, mass age therapy, acupuncture, district manager primary care sales, along with recommended psychological counseling , either privately, or in group sessions offered by private care individuals, community serv ices, or religion organizations. Appropriate referrals were made at patient and/or provider request Narcan was prescribed, when appropriate, and patient instructed in its use for emergency on ly. Patient was given instructions on proper storage and disposal of medications including but not limited to current government regulations regarding this and or current official gov [facility] approved disposal sites. Continue current medication regime with these changes and/ or additions :refill her fenta nyl patch 25 by grams applied to the anterior chest wall q72 hours, and Norco7.5/325 one po q6 hours prn pain Patient understands and is in full agreement with the above plan, Will return to office in 4 weeks, [facility] was consulted and appears appropriate, Urine [...] dysfunction are noted in men and women. [facility] men will suffer erectile dysfunction with [...] complications with the passage of time. terminal system operator use is also associated with depressions, [...] [place] | | | | | | [address] | | | | | | | | +--------+---------+ + + + + +------+--------+ + + | Name | Type | Priori | Associated Diagnoses | Order Schedule | | | | ty | | | + +------+--------+ + + | Drugs of Abuse, | Lab | Routin | halfway current | Expected: | | Panel, Pain [...] pain Backache, unspecified | + + | terminal system operator current use of opiate analgesic Encounter for long-term (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 of | | other medications | + + documented in this encounter
--- OUTSIDE RECORDS SUMMARY | ~2019-10-10 | XMS | Encounter Summary ---
Demographics + + + | Address | [address] | | | [place] [address] | + + + | Home Phone [...] Providers + +------+ + | Care Hand Tool Lapper Name | Role | Phone | + +------+ + | Wendi Aiken | PCP | | + +------+ + Encounter Details +--------+ + + + + | Date | Type | Department | Care Team | Description | +--------+ + + + + | 04/07/ | Imaging | [facility] | Provider, | | | 2018 | Exam | MED CTR EXTERNAL | [address] | | | | | IMAGING | [address] | | | | | [phone] | [place] [address] | | +--------+ + + + + [...] | | | | | | [address] [facility] [place] | | | | | | [id number] | | | | | | | [...]
--- OUTSIDE RECORDS SUMMARY | ~2019-10-10 | XMS | Encounter Summary ---
Demographics + + + | Address | [address] | | | [place] [address] | + + + | Home Phone [...] Providers + +------+ + | Care Card Player Name | Role | Phone | + [...] + + | 07/26/ | Telephone | [facility] | Darrin Hoyos | Records Request (MRI | | 2013 | | NEUROSURGERY [address] | [address] | OF LUMBAR SPINE) | | | | [address] | [address] | | | | | [place], [place] | [place] [address] | | | | | [address] | [phone] | | | | | [phone] | | | +--------+ + + + [...] [place] | | | | | | [address] | | | | | | | | +--------+---------+ + + + documented as of this encounter Visit Diagnoses Not on filedocumented in this encounter"
--- OUTSIDE RECORDS SUMMARY | ~2019-10-10 | XMS | Encounter Summary ---
Demographics + + + | Address | [address] | | | [place] [address] | + + + | Home Phone [...] Team Providers + +------+ + | Care Carton Machine Operator Name | Role | Phone | + +------+ + | No, Physician | PCP | Unavailable | + +------+ + Encounter Details +--------+ + + + + | Date | Type | Department | Care Team | Description | +--------+ + + + + | 01/08/ | Hospital | [facility] | Shay Dietz | Lumbar radiculopathy | | 2013 | Encounter | MED CTR XRAY [address] | [address] | | | | | [place] | [facility] [place] | | | | | [place] [address] | [address] | | | | | [phone] | | | | | | | Edger Saw Operator, Ws | | +--------+ + + + [...] [place] | | | | | | [address] | | | | | | | [...] radiculopathy ICD-9 Code 724.4 Ms. Sheikh | [facility] | | Joanne presents to the fluoroscopy suite for a [facility] | | fluoroscopically-guided left L5-S1 transforaminal [...] [address] | [place] | [phone] | | [facility] | | [address] | | | - IMAGING | | [...]
--- OUTSIDE RECORDS SUMMARY | ~2019-10-10 | XMS | Encounter Summary ---
Demographics + + + | Address | [address] | | | [place] [address] | + + + | Home Phone [...] Team Providers + +------+ + | Care Assistant Technician Name | Role | Phone | [...] [address] | | | | | [place], [place] | [place] [address] | | | | | [address] | [phone] | | | | | [phone] | | | +--------+ + + + [...] [place] | | | | | | [address] | | | | | | | | +--------+---------+ + + + documented as of this encounter Visit Diagnoses Not on filedocumented in this encounter"
--- OUTSIDE RECORDS SUMMARY | ~2019-10-10 | XMS | Encounter Summary ---
Demographics + + + | Address | [address] | | | [place] [address] | + + + | Home Phone [...] Team Providers + +------+ + | Care Outreach Consultant Name | Role | Phone | + +------+ + PCP | Unavailable | + +------+ + Encounter Details +--------+ + + + + | Date | Type | Department | Care Team | Description | +--------+ + + + + | 02/22/ | Hospital | [facility] | Ken Craft | | | 2005 - | Encounter | HEART MED CTR BEH | MD Masha [address] | | | | | TH ADULT [address] [place], [place] | | | 02/28/ | | [address] [place], [place] | [address] | | | 2005 | | [address] | | | | | | [phone] | Samantha Estes | | | | | | MD Jewel [address] | | | | | | [address] | | | | | | [place] [address] | | | | | | | [...] [place] | | | | | | [address] | | | | | | | | +--------+---------+ + + + documented as of this encounter Visit Diagnoses Not on filedocumented in this encounter"
--- OUTSIDE RECORDS SUMMARY | ~2019-10-10 | XMS | Encounter Summary ---
Demographics + + + | Address | [address] | | | [place] [address] | + + + | Home Phone [...] Team Providers + +------+ + | Care Tie Bucker Name | Role | Phone | + [...] | | 2012 | | [facility] | [address] | | | | | Riddhi [address] | Juliana [place]te [place], | | | | | [place] | [place] [address] | | | | | [id number] [facility] | [phone] | | | | | [facility], | | | | | | [place] [address] | | | | | | [phone] | | | +--------+ + + + [...]
--- OUTSIDE RECORDS SUMMARY | ~2019-10-10 | XMS | Encounter Summary ---
Demographics + + + | Address | [address] | | | [place] [address] | + + + | Home Phone [...] Team Providers + +------+ + | Care Laboratory Operations Coordinator Name | Role | Phone | [...] + + | 11/01/ | Telephone | [facility] | Shay Dietz | Medication Problem | | 2012 | | PHYSIATRY [address] | [address] | | | | | [place], | [place], [place] | | | | | [place] [address] | [address] | | | | | [phone] | | | +--------+ + + + [...] [place] | | | | | | [address] | | | | | | | | +--------+---------+ + + + documented as of this encounter Visit Diagnoses + + | Diagnosis | + + | Back pain - Primary Backache, unspecified | + + documented in this encounter"
--- OUTSIDE RECORDS SUMMARY | ~2019-10-10 | XMS | Encounter Summary ---
Demographics + + + | Address | [address] | | | [place] [address] | + + + | Home Phone [...] Providers + +------+ + | Care Senior Policy Associate Name | Role | Phone | [...] + + | 07/26/ | Telephone | [facility] | Darrin Hoyos | Records Request (MRI | | 2013 | | NEUROSURGERY [address] | [address] | OF LUMBAR SPINE) | | | | [address] | [address] | | | | | [place], [place] | [place] [address] | | | | | [address] | [phone] | | | | | [phone] | | | +--------+ + + + [...] [place] | | | | | | [address] | | | | | | | | +--------+---------+ + + + documented as of this encounter Visit Diagnoses Not on filedocumented in this encounter"
--- OUTSIDE RECORDS SUMMARY | ~2019-10-10 | XMS | Encounter Summary ---
Demographics + + + | Address | [address] | | | [place] [address] | + + + | Home Phone [...] Team Providers + +------+ + | Care Rag Grader Name | Role | Phone | [...] + + | 07/03/ | Telephone | [facility] | Shay Dietz | Other (Called | | 2012 | | PHYSIATRY [address] | [address] | patient to discuss | | | | [place], | [place], [place] | options regarding | | | | [place] [address] | [address] | having another | | | | [phone] | | injection or having | | [...] [place] | | | | | | [address] | | | | | | | | +--------+---------+ + + + documented as of this encounter Visit Diagnoses Not on filedocumented in this encounter"
--- OUTSIDE RECORDS SUMMARY | ~2019-10-10 | XMS | Encounter Summary ---
Demographics + + + | Address | [address] | | | [place] [address] | + + + | Home Phone [...] Providers + +------+ + | Care Training Personnel Supervisor Name | Role | Phone | + +------+ + PCP | Unavailable | + +------+ + Encounter Details +--------+ + + + + | Date | Type | Department | Care Team | Description | +--------+ + + + + | 10/06/ | [facility] | [facility] | Robert Perales | | | 2010 | Encounter | MED CTR SLEEP | MD Eric Rivera Glidden | | | | | CENTER [address] [place] | | | | | [place], [place] | [place] [address] | | | | | [address] | [phone] | | | | | [phone] | | | +--------+ + + + [...] [place] | | | | | | [address] | | | | | | | | +--------+---------+ + + + documented as of this encounter Visit Diagnoses Not on filedocumented in this encounter"
--- OUTSIDE RECORDS SUMMARY | ~2019-10-10 | XMS | Encounter Summary ---
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 Removed Ranitidine and Myrbetriq from med list as these have not been filled in the last 3 months. Please see OFFICE HELPER med list for updated medication list. Electronically [...] [place] | | | | | | [id number] | | | | | | | [...] L?MRN: | | | | | | [id number] | | | [id number] | | | ecurit | | | [...] | | | St. | | | [place] | | | y | | | [...] | | | St. | | | [place] | | | y H. | | [...] | | | St. | | | [place] | | | y H. | | [...] | | | St. | | | [place] | | | y H. | | [...] | | | St. | | | [place] | | | y H. | | [...] | | | St. | | | [place] | | | y H. | | [...] | | | St. | | | [place] | | | y H. | | [...] | | | St. | | | [place] | | | y | | | [...] | | | PELON | | | IGAN | | | , MD 4 | [...] | | | L | | | DRY BOSS | | | , MD 2 | [...] + + | [facility] | [address] | [place] [address] | [phone] | | HOSPITAL LAB[facility]ATORY | | | [...] + + | [facility] | [address] | [place] [address] | [phone] | | HOSPITAL LABORATORY | | | [...] | | HOSPITAL | | | | Antipyretic/Rgzhuhiog98. | | LABORATORY | | | | [...] + + | [facility] | [address] | [place] [address] | [phone] | | HOSPITAL LABORATORY | | | [...] + + | [facility] | [address] | [place] [address] | [phone] | | HOSPITAL LAB[facility]ATORY | | | [...] | mL/min/1.73m2 | [facility] | | | COLOMBIAN | RATE,ESTIMATED | | HOSPITAL | | | | mL/min/1.07b7Riqo than | | LABORATORY | | | [...] + + | [facility] | [address] | [place] [address] | [phone] | | HOSPITAL LABORATORY | | | [...] + + | [facility] | [address] | [place] [address] | [phone] | | HOSPITAL LABORATORY | | | [...] + + | [facility] | [address] | [place] [address] | [phone] | | HOSPITAL LABORATORY | | | [...] - 1.030 | [facility] | | | [place] | | | [facility] | | | [...] + + | [facility] | [address] | [place] [address] | [phone] | | HOSPITAL LABORATORY | | | [...] the attending | LABORATORY | | physician. Vuxi-aht-ubnuxob drugs may cross react with some methods. [...] + + | [facility] | [address] | [place] [address] | [phone] | | HOSPITAL LABORATORY | | | [...]
--- OUTSIDE RECORDS SUMMARY | ~2019-10-10 | XMS | Encounter Summary ---
Demographics + + + | Address | [address] | | | [place] [address] | + + + | Home Phone [...] Team Providers + +------+ + | Care Major Gifts Director Name | Role | Phone | [...] | SR | | | | | [phone] | | | +--------+ + + + [...] [place] | | | | | | [address] | | | | | | | | +--------+---------+ + + + documented as of this encounter Visit Diagnoses Not on filedocumented in this encounter
--- OUTSIDE RECORDS SUMMARY | ~2019-10-10 | XMS | Clinical Summary ---
Demographics + + + | Address | [address] | | | [place] [address] | + + + | Home Phone [...] Team Providers + +------+ + | Care Creel Selector Name | Role | Phone | + [...] | | 19 | | | | [facility] current | Responsiveness (May | | | [...] Overview: Added automatically from request for surgery [id number] | + + + + + | Spondylosis without myelopathy or radiculopathy, lumbosacral | 03/20/2019 | | region | | + + + + + | Overview: Added automatically from request for surgery [id number] | + + + + + | Chronic bilateral low back pain without sciatica | 03/20/2019 | + + + + + | Overview: Added automatically from request for surgery [id number] | + + + + + | Intervertebral disc disorders with radiculopathy, lumbosacral | 02/25/2019 | | region | | + + + + + | Overview: Added automatically from request for surgery [id number] | + + + + + | Chronic low back pain with sciatica | 02/25/2019 | + + + + + | Overview: Added automatically from request for surgery [id number] | + + + + + | Lumbar region somatic dysfunction | 02/25/2019 | + + + + + | Overview: Added automatically from request for surgery [id number] | + + + + + | Strain of lumbar region | 02/25/2019 | + + + + + | Overview: Added automatically from request for surgery [id number] | + + + + + | Spinal stenosis of lumbosacral region | 02/25/2019 | + + + + + | Overview: Added automatically from request for surgery [id number] | + + + + + | [...] Overview: Added automatically from request for surgery [id number] | | Problem List Laboratory Sampler Utility | + + + + + [...] + +---+ + + | Overview: CHRISKeven [id number] Decision | + + + +---+ | [...] | 08/03/ | Anesthesia | | Yojana rAellano CRNA | | | 2018 | Event [...] [place] | | | | | | [address] | | | | | | | [...] | | 03/04/ | [id number] | | [id number]: Qty: 1 | ogical | Spine | MEDICAL - | | 2020 | S | | on 08/03/2019 by Cuong, | | Lumbar | STJU | | | /[id number] | | MD Maykel at [facility] | Stimul | | | | | 444 | | [facility] | ator | | | [...] | | 11/23/ | [id number] | | [id number]: Qty: 1 on | | | MEDICAL - | | 2020 | S | | 03/28/2019 by Sonja, | | | STJU | | | /[id number] | | DO Alfredo | | | | | | 330 / | + +--------+--------+ +--------+--------+--------+ | Proclaim 5 EliteImplanted: | | N/A: | ST CASEY | | 01/15/ | 3660 | | Qty: 1 on 08/03/2019 by Cuong, | | Spine | MEDICAL - | | 2020 | /[id number] | | MD Maykel at [facility] | | Lumbar | STJU | | | 6.1 | | [facility] | | | | | [...] | | | Needs | | | DIRECTOR WORKFORCE MANAGEMENT | | | reques | | | [...] Testing | 65 - 99 mg/dL | [facility] | | | POC | performed at [facility];[address] | | LABORATORY | | | | [address];[place] | | | | | | [address] | | | | + + + + + + + + | Specimen | + + | | + + + + + + + | Performing | Address | City/State/Zipcode | Phone Number | | Organization | | | | + + + + + | [facility] | [address] | [place] [address] | [phone] | + + + + + LINSEY [...] - 08/03/2019 9:52 AM PDT Anesthesia Airway Awqujczrx72/4/2019 | | 9:33Preprocedure check: patient identified, oxygen, [...] + + + | BB BAND | [id number] | | [facility] | | | | | | LABORATORY | | + + + + + + | BB BAND | Testing performed at | | [facility] | | | | [facility];[address] [facility] | | LABORATORY | | | | Blvd;[place] [address] | | | | + + + + + + + + | Specimen | + + | Blood | + + + + + + + | Performing | Address | City/State/Zipcode | Phone Number | | Organization | | | | + + + + + | [facility] | [address] | [place] [address] | [phone] | + + + + + XR [...] [facility] | | | | performed at [facility];[address] | | LABORATORY | | | | [address]nel[address];[place] | | | | | | [address] | | | | + + + + + + + + | Specimen | + + | Tissue - Both | | anterior nares (body | | structure) | + + + + + + + | Performing | Address | City/State/Zipcode | Phone Number | | Organization | | | | + + + + + | [facility] | [address] | [place] [address] | [phone] | + + + + + PTT (07/18/2019 2:26 PM PDT) + + + + + + | Component | Value | Ref Range | Performed | Pathologist | | | | | At | Signature | + + + + + + | PTT | 29Comment: Testing | 23 - 32 seconds | [facility] | | | | performed at [facility];[address] | | LABORATORY | | | | [address];[place] | | | | | | [address] | | | | + + + + + + + + | Specimen | + + | Blood | + + + + + + + | Performing | Address | City/State/Zipcode | Phone Number | | Organization | | | | + + + + + | [facility] | [address] | [place] [address] | [phone] | + + + + + Protime [...] | | | | | performed at [facility] | | | | | | [facility];[place], [place] | | | | | | [address] | | | | + + + + + + + + | Specimen | + + | Blood | + + + + + + + | Performing | Address | City/State/Zipcode | Phone Number | | Organization | | | | + + + + + | [facility] | [address] | [place] [address] | [phone] | + + + + + CBC [...] | | | Absolute | performed at [facility], [address] | K/uL | LABORATORY | | | | Josue [place]nel[address], | | | | | | [place] [address] | | | | + + + + + + + + | Specimen | + + | Blood | + + + + + + + | Performing | Address | City/State/Zipcode | Phone Number | | Organization | | | | + + + + + | [facility] | [address] | [place] [address] | [phone] | + + + + + Comprehensive [...] | >60Comment: GFR <60: | >60 | [facility] | | | GFR | CHRONIC KIDNEY [...] | | | | | performed at [facility], [address] | | | | | | [facility], | | | | | | [place] [address] | | | | + + + + + + + + | Specimen | + + | Blood | + + + + + + + | Performing | Address | City/State/Zipcode | Phone Number | | Organization | | | | + + + + + | [facility] | [address] | [place] [address] | [phone] | + + + + + ECG [...] +---------+--------+ | INDIVIDUAL ASSURANCE | INDIVI | [id number] | | | | Indemn | | [...] +--------+ +---------+--------+ | MEDICARE | MEDICA | [id number] | | [phone] | | Medica | | | RE | | 991-Pr | 5 | | re | | | PART A | | esent | | | | | | AND B | | | | | | + +--------+ +--------+ +---------+--------+ | MEDICARE | MEDICA | [id number] | | [phone] | | Medica | | | RE | | 991-Pr | 5 | | re | | | PART A | | esent | | | | | | AND B | | | | | | + +--------+ +--------+ +---------+--------+ | MEDICARE | MEDICA | [id number] | | [phone] | | Medica | | | RE | | 991-Pr | 5 | | re | | | PART A | | esent | | | | | | AND B | | | | | | + +--------+ +--------+ +---------+--------+ | MEDICARE | MEDICA | [id number] | | [phone] | | Medica | | | RE | | 991-Pr | 5 | | re | | | PART A | | esent | | | | | | AND B | | | | | | + +--------+ +--------+ +---------+--------+ | INDIVIDUAL ASSURANCE | INDIVI | [id number] | | | | Indemn | | [...] +---------+--------+ | INDIVIDUAL ASSURANCE | INDIVI | [id number] | | | | Indemn | | [...] +---------+--------+ | INDIVIDUAL ASSURANCE | INDIVI | [id number] | | | | Indemn | | [...] | 1945 | [phone] | [place] [address] | | | jose | | | 8 (Home) | | + +--------+ +--------+ + + | Mcintosh-Ibeth Andersu | Person | Self | [birth year] | [address] | | [place] | al/Fam | | 1945 | [phone] | [place] [address] | | | jose | | | 8 (Home) | | + +--------+ +--------+ + + | Mcintosh-MartitaXiong | Person | Self | [birth year] | [address] | | mande[place] | al/Fam | | 1945 | [phone] | [place] [address] | | | jose | | | 8 (Home) | | + +--------+ +--------+ + + | Mcintosh-MartitaIxong | Person | Self | [birth year] | [address] | | [place] | al/Fam | | 1945 | [phone] | [place] [address] | | | jose | | | 8 (Home) | | + +--------+ +--------+ + + Advance Directives + + + + + | Type | Date Recorded | Patient | Explanation | | | | Green Meat Packer | | + + + + + | Power of | | | | | Retail Management Trainee | | | | + + + [...]
--- OUTSIDE RECORDS SUMMARY | ~2019-10-10 | XMS | Encounter Summary ---
Demographics + + + | Address | [address] | | | [place] [address] | + + + | Home Phone [...] Providers + +------+ + | Care Clinical Staff Pharmacist Name | Role | Phone | + +------+ + | Miquel Calhoun MD | PCP | | + +------+ + Encounter Details +--------+ + + + + | Date | Type | Department | Care Team | Description | +--------+ + + + + | 10/18/ | [facility] | [facility] | Khushbu Cortez, | | | 2012 | | [facility] | ELECTRIC WELL LOGGING OPERATOR [place], [place] | | | | | [address] | [address] | | | | | [place] | | | | | | Bandar/[id number] | | | | | | [facility] | | | | | | [place] [address] | | | | | | [phone] | | | +--------+ + + + [...]
--- OUTSIDE RECORDS SUMMARY | ~2019-10-10 | XMS | Encounter Summary ---
Demographics + + + | Address | [address] | | | [place] [address] | + + + | Home Phone [...] Providers + +------+ + | Care Metal Products Viewer Name | Role | Phone | + +------+ + | Wendi Aiken | PCP | | + +------+ + Encounter Details +--------+ + + + + | Date | Type | Department | Care Team | Description | +--------+ + + + + | 04/07/ | Imaging | [facility] | Provider, | | | 2018 | Exam | MED CTR EXTERNAL | MD [address] | | | | | IMAGING | [address] | | | | | [phone] | [place] [address] | | +--------+ + + + + [...] | | | | | | [address] [facility] | | | | | | [id number] | | | | | | | [...]
--- OUTSIDE RECORDS SUMMARY | ~2019-10-10 | XMS | Encounter Summary ---
Demographics + + + | Address | [address] | | | [place] [address] | + + + | Home Phone [...] Providers + +------+ + | Care County Engineer Name | Role | Phone | [...] Chronic low | [place], | [address] | | | | | back pain | Shay Mukherjee MD | [place], | | | | | Lumbar | [address] | [place] | | | | | radiculopath | [place] | [address] | | | | | y | [place] | Phone: | | | | | Procedures | [address] | [phone] | | | | | MRI Lumbar | Phone: | Fax: | | | | | Spine wo | [phone] | [phone] | | | | | Contrast | Fax: | | | | | | MRI | [phone] | | +--------+--------+ + + + + [...] pain (Primary Dx); | | | | [address] [place], | [place] | Lumbar radiculopathy | | | | [place] [address] | [address] | | | | | [phone] | | | +--------+ + + + [...] [place] | | | | | | [address] | | | | | | | [...] + | MISCELLANEOUS LAB | | | [phone] | + +---------+ + + | MISCELANIOUS LAB | | | [phone] | + +---------+ + + documented in this encounter Visit Diagnoses + + | Diagnosis | + + | Chronic low back pain - Primary Lumbago | + + | Lumbar radiculopathy Thoracic or lumbosacral neuritis or radiculitis, unspecified | + + documented in this encounter"
--- OUTSIDE RECORDS SUMMARY | ~2019-10-10 | XMS | Encounter Summary ---
Demographics + + + | Address | [address] | | | [place] [address] | + + + | Home Phone [...] Team Providers + +------+ + | Care Induction Heat Treater Name | Role | Phone | + [...] | | | | [address] | [place] [address] | | | | | [place], [place] | [phone] | | | | | [address] | | | | | | [phone] | | | +--------+ + + + [...] [place] | | | | | | [address] | | | | | | | [...] | | | evaluation. Electronically signed by Heldre Samuel on | | | 06/21/2018 1:36 [...]
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
--- OUTSIDE RECORDS SUMMARY | ~2019-10-10 | XMS | Encounter Summary ---
Demographics + + + | Address | [address] | | | [place] [address] | + + + | Home Phone [...] Providers + +------+ + | Care Track Oiler Name | Role | Phone | + +------+ + | Wendi Aiken | PCP | | + +------+ + Encounter Details +--------+ + + + + | Date | Type | Department | Care Team | Description | +--------+ + + + + | 05/21/ | Orders Only | [facility] | Provider, | | | 2019 | | SYSTEM GENERIC OP | MD [address] | | | | | [address] | Vasquez Jara | | | | | [address] [place], [place] | [place] [address] | | | | | [address] | | | | | | [phone] | | | +--------+ + + + [...] [place] | | | | | | [id number] | | | | | | | | +--------+---------+ + + + documented as of this encounter Visit Diagnoses Not on filedocumented in this encounter"
--- OUTSIDE RECORDS SUMMARY | ~2019-10-10 | XMS | Encounter Summary ---
Demographics + + + | Address | [address] | | | [place] [address] | + + + | Home Phone [...] Team Providers + +------+ + | Care Prefabricator Name | Role | Phone | + +------+ + PCP | Unavailable | + +------+ + Encounter Details +--------+ + + + + | Date | Type | Department | Care Team | Description | +--------+ + + + + | 10/31/ | Hospital | [facility] | | | | 1999 - | Encounter | MED CTR CANCER | | | | | | ALEXEY Hernadez | | | | 03/16/ | | [place], [place] | | | | 2000 | | [address] | | | | | | [phone] | | | +--------+ + + + [...] [place] | | | | | | [address] | | | | | | | | +--------+---------+ + + + documented as of this encounter Visit Diagnoses Not on filedocumented in this encounter"
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
--- OUTSIDE RECORDS SUMMARY | ~2019-10-10 | XMS | Encounter Summary ---
Demographics + + + | Address | [address] | | | [place] [address] | + + + | Home Phone [...] Team Providers + +------+ + | Care Derrick Boat Leverman Name | Role | Phone | + [...] [address] | | | | | [place], | [address] [place] | | | | | [place] [address] | [place] [address] | | | | | [phone] | [phone] | | | | | | | [...] | Office | Pain Medicine | Denys Sibely, | | | 2019 | Visit | | DO [address] | | | | | | [address] [place] | | | | | | [address] | | | | | | | | +--------+---------+ + + + documented as of this encounter Visit Diagnoses Not on filedocumented in this encounter"
--- OUTSIDE RECORDS SUMMARY | ~2019-10-10 | XMS | Encounter Summary ---
Demographics + + + | Address | [address] | | | [place] [address] | + + + | Home Phone [...] Providers + +------+ + | Care Case Worker Name | Role | Phone | [...] 2016 | Encounter | at [facility] [address] | [address] | test results | | | | Abbe Soto Mailcode: | [facility] [address] [place], | | | | | [address] | [place] [address] | | | | | Health and Healing, | [phone] | | | | | [place] [address] [facility] | | | | | | Floor [place], [place] | | | | | | [address] | | | | | | [phone] | | | +--------+ + + + [...]
--- OUTSIDE RECORDS SUMMARY | ~2019-10-10 | XMS | Encounter Summary ---
Demographics + + + | Address | [address] | | | [place] [address] | + + + | Home Phone [...] Team Providers + +------+ + | Care Screening Unit Registered Nurse Name | Role | Phone | + +------+ + | Oxana Nye | PCP | | + +------+ + Encounter Details +--------+ + + + + | Date | Type | Department | Care Team | Description | +--------+ + + + + | 07/06/ | Hospital | [facility] | Spenser, | 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 | MED CTR XRAY [address] | [address] | lumbar region | | | | [place] | [address], | without myelopathy | | | | [place] [address] | [place] [address] | or radiculopathy | | | | [phone] | [phone] | (Primary Dx); | | | | | | Chronic right-sided | | | | | 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 | [address] | [place] | [phone] | | [facility] | | [address] | | | - IMAGING | | [...] | | | | Other, ONCE, [facility], [facility]–1983 07/06/16 at 1115, | | AM PDT | | | | | For 1 dose, Radiology | | | | | | + +--------+ +-------+------+------+ +---+---+ | | | +---+---+ + +-------+ +------+---+---+ | lidocaine 1% injection 1 mL 1 | Given | 07/06/20 | 1 mL | | | | mL, Other, ONCE, [facility], [facility]1983 07/06/16 at | | 16 11:03 | [...]
--- OUTSIDE RECORDS SUMMARY | ~2019-10-10 | XMS | Encounter Summary ---
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 Removed Ranitidine and Myrbetriq from med list as these have not been filled in the last 3 months. Please see [facility] med list for updated medication list. Electronically [...] [place] | | | | | | [id number] | | | | | | | [...] L?MRN: | | | | | | [id number] | | | [id number] | | | ecurit | | | [...] | | | t | | | Cesra, | | | | | | Bradle [...] | | | St. | | | [place] | | | y | | | [...] | | | St. | | | [place] | | | y H. | | [...] | | | St. | | | [place] | | | y H. | | [...] | | | St. | | | [place] | | | y H. | | [...] | | | St. | | | [place] | | | y H. | | [...] | | | St. | | | [place] | | | y H. | | [...] | | | St. | | | [place] | | | y H. | | [...] | | | St. | | | [place] | | | y | | | [...] | | | L | | | MILLER DISTILLERY | | | , MD 2 | | | 25 | | | 2018-0 | | | 5-22 | | | CLONAZ | | | EPAM 1 | | | MG | | | TABLET | | | 60 | | | PELON | | | GAIN | | | , MD 4 | [...] | | | L | | | TIANA | | | 4 0 | | [...] | | | [place] | | | [place] | | | City, | | | [...] + + | [facility] | [address] | [place] [address] | [phone] | | HOSPITAL [facility]ORY | | | [...] + + | [facility] | [address] | [place] [address] | [phone] | | HOSPITAL LAB[facility]ATORY | | | [...] | | HOSPITAL | | | | Antipyretic/Idwmxgqyk25. | | LABORATORY | | | | [...] + + | [facility] | [address] | [place] [address] | [phone] | | HOSPITAL LAB[facility]ORY | | | [...] + + | [facility] | [address] | [place] [address] | [phone] | | HOSPITAL LAB[facility]ORY | | | [...] | mL/min/1.73m2 | [facility] | | | BRITISH | RATE,ESTIMATED | | HOSPITAL | | | | mL/min/1.38r0Jifo than | | LABORATORY | | | [...] + + | [facility] | [address] | [place] [address] | [phone] | | HOSPITAL LAB[facility]ATORY | | | [...] + + | [facility] | [address] | [place] [address] | [phone] | | HOSPITAL LAB[facility]ORY | | | [...] + + | [facility] | [address] | [place] [address] | [phone] | | HOSPITAL LAB[facility]ATORY | | | [...] - 1.030 | [facility] | | | [place] | | | [facility] | | | [...] + + | [facility] | [address] | [place] [address] | [phone] | | HOSPITAL LAB[facility]ATORY | | | [...] the attending | LABORATORY | | physician. Dmog-awi-zesjpqh drugs may cross react with some methods. [...] + + | [facility] | [address] | [place] [address] | [phone] | | HOSPITAL LABORATORY | | | [...] dose, HOWARD, | | | UNIQUE Ramos: laazro godinez, | | + +---+ | | [...]
--- OUTSIDE RECORDS SUMMARY | ~2019-10-10 | XMS | Encounter Summary ---
Demographics + + + | Address | [address] | | | [place] [address] | + + + | Home Phone [...] Team Providers + +------+ + | Care Adjudication Specialist Name | Role | Phone | + +------+ + | Miquel Calhoun MD | PCP | | + +------+ + Encounter Details +--------+ + + + + | Date | Type | Department | Care Team | Description | +--------+ + + + + | 10/18/ | [facility] | Khushbu Cortez, | | | 2012 | | [facility] | COPRA PROCESSOR [place], [place] | | | | | [address] | [address] | | | | | Alexandria Chamorro | | | | | | Bandar/ZHM5ZGPQ [facility] | | | | | | [facility] | | | | | | [place] [address] | | | | | | [phone] | | | +--------+ + + + [...]
--- OUTSIDE RECORDS SUMMARY | ~2019-10-10 | XMS | Encounter Summary ---
Demographics + + + | Address | [address] | | | [place] [address] | + + + | Home Phone [...] Team Providers + +------+ + | Care Aids Nurse Name | Role | Phone | [...] Provider Unknown | | | | | [place], [place] | | | | | | [address] | (Fax) | | | | | [phone] | | | +--------+ + + + [...] [place] | | | | | | [address] | | | | | | | [...]
--- OUTSIDE RECORDS SUMMARY | ~2019-10-10 | XMS | Encounter Summary ---
Demographics + + + | Address | [address] | | | [place] [address] | + + + | Home Phone [...] Team Providers + +------+ + | Care Hair Weaver Name | Role | Phone | + +------+ + PCP | Unavailable | + +------+ + Encounter Details +--------+ + + + + | Date | Type | Department | Care Team | Description | +--------+ + + + + | 10/31/ | Hospital | [facility] | | | | 1999 - | Encounter | MED CTR CANCER | | | | | | ALEXEY Hernadez | | | | 03/16/ | | [place], [place] | | | | 2000 | | [address] | | | | | | [phone] | | | +--------+ + + + [...] [place] | | | | | | [address] | | | | | | | | +--------+---------+ + + + documented as of this encounter Visit Diagnoses Not on filedocumented in this encounter"
--- OUTSIDE RECORDS SUMMARY | ~2019-10-10 | XMS | Encounter Summary ---
Demographics + + + | Address | [address] | | | [place] [address] | + + + | Home Phone [...] Providers + +------+ + | Care Medical And Scientific Illustrator Name | Role | Phone | + [...] | region | [address] | [place], | | | | | Chronic low | [place], [place] | [place] [address] | | | | | back pain | [address] | Phone: | | | | | Facet | Phone: | [phone] | | | | | arthritis of | [phone] | Fax: | | | | | lumbar | Fax: | [phone] | | | | | region | [phone] | | | | | | Scoliosis [...] | | | | | | MA OFFICE | | | | | | [...] lumbar region - | | | | Reva Stanton, | [address] [place], | left L5-S1 (Primary | | | | [place] [address] | [place] [address] | Dx); Chronic low | | | | [phone] | [phone] | back pain; Facet | | | [...] [place] | | | | | | [address] | | | | | | | [...]
--- OUTSIDE RECORDS SUMMARY | ~2019-10-10 | XMS | Encounter Summary ---
Demographics + + + | Address | [address] | | | [place] [address] | + + + | Home Phone [...] Team Providers + +------+ + | Care Plumber Name | Role | Phone | + [...] at [facility] [address] | [address] [address] [facility] | | | | | Mcad[place] Brittany Mailcode: | [facility] [address] [place], | | | | | [address] | [place] [address] | | | | | Health and Healing, | [phone] | | | | | [facility] | | | | | | Floor [place], [place] | | | | | | [address] | | | | | | [phone] | | | +--------+ + + + [...]
--- OUTSIDE RECORDS SUMMARY | ~2019-10-10 | XMS | Encounter Summary ---
Demographics + + + | Address | [address] | | | [place] [address] | + + + | Home Phone [...] Team Providers + +------+ + | Care Barge Pilot Name | Role | Phone | [...] + | 08/31/ | Telephone | [facility] | Denys Sibley, | Back Pain (Severe | | 2019 | | [facility] | DO [address] | pain) | | | | [address] [place], [place] | | | | | [address] | [address] | | | | | [place], [place] | | | | | | [address] | | | | | | [phone] | | | +--------+ + + + [...] [place] | | | | | | [address] | | | | | | | | +--------+---------+ + + + documented as of this encounter Visit Diagnoses Not on filedocumented in this encounter"
--- OUTSIDE RECORDS SUMMARY | ~2019-10-10 | XMS | Encounter Summary ---
Demographics + + + | Address | [address] | | | [place] [address] | + + + | Home Phone [...] Providers + +------+ + | Care Lead Cargoman Name | Role | Phone | + [...] + + | 08/16/ | Office | [facility] | Gabi Guzman | S/P insertion of | | 2019 | Visit | [facility] | [address] | spinal cord | | | | ORTHOPEDIC SPINE | [address] | stimulator (Primary | | | | [address] | [place] [address] | Dx); DDD | | | | [place], [place] | [phone] | (degenerative disc | | | | [address] | | disease), lumbar; | | | | [phone] | | Facet arthritis of | | [...] accompanied by her friend, and the Akhtar desk representative for the spinal cord stimulator, f [...] non-medical: Not on file Occupational History Occupation: [employer] Tobacco Use Smoking status: Never Smoker Smokeless [...] Procedure: KYPHOPLASTY; Surgeon: Alfredo Casillas DO; Location: [facility]; Service: Pa in Management; [...] Acid reflux disease Acute renal failure ([facility]) April 2013 Adverse effect of anesthesia hx hallucinations after anesthesia x 3 yrs ago. Anesthesia hallucinated after bladder repair Arthralgia Arthritis Asthma Asthma Back pain Cancer ([facility]) 2005 breast Cataract Cerebrovascular accident (CVA) ([facility]) no per pt Chronic back pain Chronic back pain Chronic constipation Concussion 07/2015 Preceeded by seizure Constipation COPD (chronic obstructive pulmonary disease) ([facility]) Degenerative disc disease Depression Depression Diabetes mellitus ([facility]) Diabetes mellitus, type 2 ([facility]) diet controlled Diabetes type 2, controlled [...] [place] | | | | | | [address] | | | | | | | [...]
--- OUTSIDE RECORDS SUMMARY | ~2019-10-10 | XMS | Encounter Summary ---
Demographics + + + | Address | [address] | | | [place] [address] | + + + | Home Phone [...] Providers + +------+ + | Care School Psychology Professor Name | Role | Phone | [...] + + | 04/06/ | Telephone | [facility] | Nick Martinez, | Results, Imaging | | 2018 | | PHYSIATRY [address] | PA-C [address] | (MRI/Cancelled | | | | [place], | [address] [place] | Injection) | | | | [place] [address] | [place] [address] | | | | | [phone] | [phone] | | | | | | | [...] [place] | | | | | | [address] | | | | | | | | +--------+---------+ + + + documented as of this encounter Visit Diagnoses Not on filedocumented in this encounter"
--- OUTSIDE RECORDS SUMMARY | ~2019-10-10 | XMS | Encounter Summary ---
Demographics + + + | Address | [address] | | | [place] [address] | + + + | Home Phone [...] Providers + +------+ + | Care Manager Financial Services Name | Role | Phone | + +------+ + | Concepción Gallardo NP | PCP | | + +------+ + Encounter Details +--------+ + + + + | Date | Type | Department | Care Team | Description | +--------+ + + + + | 07/17/ | Hospital | [facility] | Paty, | Intractable low back | | 2014 - | Encounter | [facility] | MD [address] | pain | | | | CLINICAL DECISION | [address] | | | 07/18/ | | [address] | [place] [address] | | | 2013 | | [place], [place] | [phone] | | | | | [address] | | | | | | [phone] | | | +--------+ + + + [...] Date of Service: 07/18/14 1131 Status: Signed Community Health Specialist: Bob Valverde DO (Physician) [facility] Service: Hospitalist Discharge Summary Date of [...] IV Fentanyl, a s well as oral [place] 10's, Zanaflex, Klonopin, and PT was ordered. [...] MRI system. Multiplanar sequences according to a [place] emergency department protocol were acquired without contrast. FINDINGS: There [...] Date of Service: 07/18/14 1310 Status: Signed Community Health Specialist: Nati Mena RN (Registered Nurse) Pt discharged [...] Notes by Nati Mena RN at 07/18/14 9460 Author: Nati Mena RN Service: (none) Author Type: Registered Nurse Filed: 07/18/14 2945 Date of Service: 07/18/14 1245 Status: Signed Community Health Specialist: Nati Mena RN (Registered Nurse) Pt to [...] Date of Service: 07/18/14 1245 Status: Addendum Community Health Specialist: Sj Bender PT (Physical Therapist) Related Notes: [...] Recommended (has FWW) Prior Function Level of Piatt Modified independent with functional mobility;Modified independent wi [...] G Codes Mobility: Walking & Moving Around: $[id number] Current Status : CK - At least 40% but less than 60% impaired, limited or restricted $G8986 Projected Goal Status : CK - At [...] 0549 Date of Service: 07/18/14509 Status: Signed Community Health Specialist: Dion Goldsmith RN (Registered Nurse) Pt awakened by oil laboratory analyst and states she needs to [...] 0436 Date of Service: 07/18/14409 Status: Signed Community Health Specialist: Dion Goldsmith RN (Registered Nurse) Pt's b/p slightly low. SUSTAINABILITY PROJECT MANAGER reports pt woke up to ask what her blood pressure is. Pt sleepin g now. Plan to recheck B/P in an hour. onver hiren Akosua, Provider Unknown - 07/18/2014 3:29 AM PDT Progress Notes by Sofi Sol RPH at 07/18/14328 Author: Sofi Sol RPH Service: (none) Author Type: Pharmacist Filed: 07/18/14328 Date of Service: 07/18/14328 Status: Signed Community Health Specialist: Sofi Sol RPH (Pharmacist) Clinical Pharmacy Note: [...] [place] | | | | | | [address] | | | | | | | [...] | | | Fingerstick | performed at [facility] | | LAB | | | | [address];[place], [place] | | | | | | [address] | | | | + + + [...] | | | Fingerstick | performed at [facility];[address] | | LAB | | | | [address];[place] | | | | | | [address] | | | | + + + [...] EXTERNAL | | | | performed at [facility], [address] | | LAB | | | | [address], | | | | | | [place] [address] | | | | + + + + + + | RED CELL | 4.16Comment: Testing | 3.70 - 5.10 | EXTERNAL | | | COUNT | performed at [facility], [address] | M/uL | LAB | | | | [address], | | | | | | [place] [address] | | | | + + + + + + | Hgb | 11.6Comment: Testing | 11.3 - 15.5 | EXTERNAL | | | | performed at [facility], [address] | g/dL | LAB | | | | [address], | | | | | | [place] [address] | | | | + + + + + + | Hematocrit, | 36.4Comment: Testing | 34.0 - 46.0 % | EXTERNAL | | | POC | performed at [facility], [address] | | LAB | | | | [address], | | | | | | [place] [address] | | | | + + + + + + | MCV | 87.5Comment: Testing | 80.0 - 100.0 fl | EXTERNAL | | | | performed at [facility], [address] | | LAB | | | | [address], | | | | | | [place] [address] | | | | + + + + + + | MCH | 27.9Comment: Testing | 27.0 - 34.0 pg | EXTERNAL | | | | performed at [facility], [address] | | LAB | | | | [address], | | | | | | [place] [address] | | | | + + + + + + | MCHC | 31.9 (L)Comment: Testing | 32.0 - 35.5 | EXTERNAL | | | | performed at [facility], [address] | g/dL | LAB | | | | [address], | | | | | | [place] [address] | | | | + + + + + + | RDW-CV | 43.8Comment: Testing | 37 - 53 fl | EXTERNAL | | | | performed at [facility], [address] | | LAB | | | | [address], | | | | | | [place] [address] | | | | + + + + + + | Platelet | 244Comment: Testing | 150 - 400 K/uL | EXTERNAL | | | Count | performed at [facility], [address] | | LAB | | | Plasma | [address], | | | | | | [place] [address] | | | | + + + + + + | MPV | 8.3Comment: Testing | fl | EXTERNAL | | | | performed at [facility], [address] | | LAB | | | | [address], | | | | | | [place] [address] | | | | + + + + + + | Differentia | AUTOMATEDComment: | | EXTERNAL | | | l Type | Testing performed at | | LAB | | | | [facility], [address] | | | | | | [place] | | | | | | [address] | | | | + + + + + + | % Segmented | 40.1Comment: Testing | % | EXTERNAL | | | | performed at [facility], [address] | | LAB | | | Neutrophils | [address], | | | | | | [place] [address] | | | | + + + + + + | % | 48.1Comment: Testing | % | EXTERNAL | | | Lymphocytes | performed at [facility], [address] | | LAB | | | | [address], | | | | | | [place] [address] | | | | + + + + + + | % Monocytes | 9.5Comment: Testing | % | EXTERNAL | | | | performed at [facility], [address] | | LAB | | | | [address], | | | | | | [place] [address] | | | | + + + + + + | % | 1.9Comment: Testing | % | EXTERNAL | | | Eosinophils | performed at [facility], [address] | | LAB | | | | [address], | | | | | | [place] [address] | | | | + + + + + + | % Basophils | 0.4Comment: Testing | % | EXTERNAL | | | | performed at [facility], [address] | | LAB | | | | [address], | | | | | | [place] [address] | | | | + + + + + + | Absolute | 2.0Comment: Testing | 1.9 - 7.4 K/uL | EXTERNAL | | | Segmented | performed at [facility], [address] | | LAB | | | Neutrophils | [address], | | | | | | [place] [address] | | | | + + + + + + | Absolute | 2.4Comment: Testing | 1.0 - 3.9 K/uL | EXTERNAL | | | Lymphocytes | performed at [facility], [address] | | LAB | | | | [address], | | | | | | [place] [address] | | | | + + + + + + | Absolute | 0.5Comment: Testing | 0 - 0.8 K/uL | EXTERNAL | | | Monocytes | performed at [facility], [address] | | LAB | | | | [address], | | | | | | [place] [address] | | | | + + + + + + | Absolute | 0.1Comment: Testing | 0 - 0.5 K/uL | EXTERNAL | | | Eosinophils | performed at [facility], [address] | | LAB | | | | [address], | | | | | | [place] [address] | | | | + + + + + + | Absolute | 0.0Comment: Testing | 0 - 0.1 K/uL | EXTERNAL | | | Basophils | performed at [facility], [address] | | LAB | | | | [address], | | | | | | [place] [address] | | | | + + + [...] | performed at [facility], [address] | uIU/mL | LAB | | | | [address], | | | | | | [place] [address] | | | | + + + [...] EXTERNAL | | | | performed at [facility], [address] | | LAB | | | | [address], | | | | | | [place] [address] | | | | + + + [...] | | | | | [place] [address] | | | | + + + [...] + + | Hemoglobin | 5.2Comment: [place] | 4.0 - 6.0 % | EXTERNAL [...] | | | | | performed at [facility], [address] | | | | | [address], | | | | | | [place] [address] | | | | + + + [...] | | | | | performed at [facility], [address] | | | | | | [address], | | | | | | [place] [address] | | | | + + + [...] | | | Direct | performed at [facility], [address] | | LAB | | | | [address], | | | | | | [place] [address] | | | | + + + [...] | | | | | [place] [address] | | | | + + + + + + | K | 4.0Comment: Testing | 3.5 - 4.9 | EXTERNAL | | | | performed at [facility], [address] | mmol/L | LAB | | | | [address], | | | | | | [place] [address] | | | | + + + + + + | Cl | 106Comment: Testing | 99 - 109 mmol/L | EXTERNAL | | | | performed at [facility], [address] | | LAB | | | | [address], | | | | | | [place] [address] | | | | + + + [...] | | | | | [place] [address] | | | | + + + + + + | Glucose, | 82Comment: Testing | 65 - 99 mg/dL | EXTERNAL | | | Fasting | performed at [facility], [address] | | LAB | | | | [address], | | | | | | [place] [address] | | | | + + + + + + | BUN | 18Comment: Testing | 8 - 25 mg/dL | EXTERNAL | | | | performed at [facility], [address] | | LAB | | | | [address], | | | | | | [place] [address] | | | | + + + + + + | Creatinine | 0.61Comment: Testing | 0.50 - 1.00 | EXTERNAL | | | | performed at [facility], [address] | mg/dL | LAB | | | | [address], | | | | | | [place] [address] | | | | + + + + + + | BUN/Creatin | 30Comment: Testing | | EXTERNAL | | | ine Ratio | performed at [facility], [address] | | LAB | | | | [address], | | | | | | [place] [address] | | | | + + + + + + | Calcium | 8.7Comment: Testing | 8.5 - 10.2 | EXTERNAL | | | | performed at [facility], [address] | mg/dL | LAB | | | | [address], | | | | | | [place] [address] | | | | + + + + + + | Protein, | 5.9 (L)Comment: Testing | 6.3 - 8.2 g/dL | EXTERNAL | | | Total | performed at [facility], [address] | | LAB | | | | [address], | | | | | | [place] [address] | | | | + + + + + + | Albumin | 3.7Comment: Testing | 3.3 - 4.8 g/dL | EXTERNAL | | | | performed at [facility], [address] | | LAB | | | | [address], | | | | | | [place] [address] | | | | + + + + + + | Globulin | 2.2Comment: Testing | 1.3 - 4.9 g/dL | EXTERNAL | | | | performed at [facility], [address] | | LAB | | | | [address], | | | | | | [place] [address] | | | | + + + + + + | A/G Ratio | 1.7Comment: Testing | 1.0 - 2.4 | EXTERNAL | | | | performed at [facility], [address] | | LAB | | | | [address], | | | | | | [place] [address] | | | | + + + + + + | Bilirubin | 0.3Comment: Testing | 0.1 - 1.5 mg/dL | EXTERNAL | | | Total | performed at [facility], [address] | | LAB | | | | [address], | | | | | | [place] [address] | | | | + + + + + + | ALP, | 86Comment: Testing | 35 - 115 U/L | EXTERNAL | | | External | performed at [facility], [address] | | LAB | | | | [address], | | | | | | [place] [address] | | | | + + + + + + | AST | 162 (H)Comment: Testing | 10 - 45 U/L | EXTERNAL | | | | performed at [facility], [address] | | LAB | | | | [address], | | | | | | [place] [address] | | | | + + + + + + | ALT | 112 (H)Comment: Testing | 10 - 65 U/L | EXTERNAL | | | | performed at [facility], [address] | | LAB | | | | [address], | | | | | | [place] [address] | | | | + + + [...] | | | | | | at [facility], [address] | | | | | | [address], | | | | | | [place] [address] | | | | + + + [...] | | | Fingerstick | performed at [facility];[address] | | LAB | | | | [address];[place], [place] | | | | | | [address] | | | | + + + [...] Conversion - 06/15/2019 1:42 PM PDT KORI WAYNECHANTALEWTHROP1947MRI | | LUMBAR SPINE WO CONTRAST07/17/2014 9:56 [...] | + + + | KORI RAMSEYWTHRLEIGHANN 1945 MRI THORACIC SPINE WO CONTRAST | [...]
--- OUTSIDE RECORDS SUMMARY | ~2019-10-10 | XMS | Encounter Summary ---
Demographics + + + | Address | [address] | | | [place] [address] | + + + | Home Phone [...] Team Providers + +------+ + | Care Clothes Model Name | Role | Phone | + [...] + + | 05/01/ | Office | [facility] | Shay Dietz | BACK PAIN, LUMBAR | | 2012 | Visit | PHYSIATRY [address] | [address] | (Primary Dx); DISC | | | | [place], | [place], [place] | DISEASE, LUMBAR; | | | | [place] [address] | [address] | OSTEOARTHRITIS, | | | | [phone] | | LUMBOSACRAL SPINE | +--------+---------+ + [...] - 05/01/2013 11:20 AM [facility] thirty minutes before your scheduled procedure [...] our off ice. Please also provide a refrigerated company driver to take you home on the [...] the most recent injection was performed by [facility] on 11/09/2012. She reports good relief with [...] a letter to the caregivers at the [facility] to allow them to give her [...] | | | | | | [address] [place] | | | | | | [id number] [...]
--- OUTSIDE RECORDS SUMMARY | ~2019-10-10 | XMS | Encounter Summary ---
Demographics + + + | Address | [address] | | | [place] [address] | + + + | Home Phone [...] Team Providers + +------+ + | Care Member Of Technical Staff Name | Role | Phone | + +------+ + PCP | Unavailable | + +------+ + Encounter Details +--------+ + + + + | Date | Type | Department | Care Team | Description | +--------+ + + + + | 06/26/ | Respiratory | | Other, Faculty | | | 2006 | Therapy | | [phone] | | +--------+ + + + + [...] Hassan, | | | | | | DRYWALL PROFESSIONAL | | | | + + + [...] RADHA ALONZO | [address] | [place], [place] | | | DIAGNOSTICS - | [place] | [address] | | | PULMONARY FUNCTION | | | | + + + + + documented in this encounter Visit Diagnoses Not on filedocumented in this encounter"
--- OUTSIDE RECORDS SUMMARY | ~2019-10-10 | XMS | Encounter Summary ---
Demographics + + + | Address | [address] | | | [place] [address] | + + + | Home Phone [...] Providers + +------+ + | Care Digital Media Coordinator Name | Role | Phone | [...] [address] | | | | | [place], | [place], [place] | | | | | [place] [address] | [address] | | | | | [phone] | | | +--------+ + + + [...] [place] | | | | | | [address] | | | | | | | | +--------+---------+ + + + documented as of this encounter Visit Diagnoses Not on filedocumented in this encounter"
--- OUTSIDE RECORDS SUMMARY | ~2019-10-10 | XMS | Encounter Summary ---
Demographics + + + | Address | [address] | | | [place] [address] | + + + | Home Phone [...] Providers + +------+ + | Care Patient Services Technician Name | Role | Phone | [...] [address] | | | | | [place], | [place] [facility], | | | | | [place] [address] | [place] [address] | | | | | [phone] | [phone] | | | | | | | [...] [place] | | | | | | [address] | | | | | | | | +--------+---------+ + + + documented as of this encounter Visit Diagnoses Not on filedocumented in this encounter"
--- OUTSIDE RECORDS SUMMARY | ~2019-10-10 | XMS | Encounter Summary ---
Demographics + + + | Address | [address] | | | [place] [address] | + + + | Home Phone [...] + +------+ + | Care Sheet Metal Superintendent Name | Role | Phone | + [...] + | 07/24/ | Telephone | [facility] | Maykel Hutchins MD | Pre-op Question | | 2019 | | NE[facility]ENTER | [address] | | | | | ORTHOPEDIC SPINE | [place] | | | | | [address] [place] | [place] [address] | | | | | [place] | [phone] | | | | | [address] | | | | | | [phone] | | | +--------+ + + + [...] [place] | | | | | | [address] | | | | | | | | +--------+---------+ + + + documented as of this encounter Visit Diagnoses Not on filedocumented in this encounter"
--- OUTSIDE RECORDS SUMMARY | ~2019-10-10 | XMS | Encounter Summary ---
Demographics + + + | Address | [address] | | | [place] [address] | + + + | Home Phone [...] Team Providers + +------+ + | Care Ready Mix Truck Driver Name | Role | Phone [...] | Lumbar | [place], | [address] [place] | | | | | spondylosis | Shay Mukherjee MD | [place], | | | | | Right hip | [address] | [place] | | | | | pain | [place] | [address] | | | | | Procedures | [place], [place] | Phone: | | | | | [place] | [address] | [phone] | | | | | DX/THER AGNT | Phone: | Fax: | | | | | [place] | [phone] | [phone] | | | | | FACET JOINT, | Fax: | | | | | | LUMBAR/SAC, | [phone] | | | | | | [address] L[address] | | | | | | | [place] | | | | | | | [place]AM[place] | | | | | | | E ACET INJ | | | | | | | NOS, 10 MG | | | | | | | [place] | | | | | | [...] + + | 02/08/ | Hospital | [facility] | [place], | Trochanteric | | 2016 | Encounter | MED CTR XRAY [address] | [address] | bursitis of right | | | | [place] | [facility], | hip (Primary Dx); | | | | [place] [address] | [place] [address] | Chronic bilateral | | | | [phone] | [phone] | low back pain with | | | | | | right-sided | | | | | Cement Truck Driver, [place] | sciatica; Facet | | | [...] [place] | | | | | | [address] | | | | | | | [...] Bursa Injection Diagnosis: Lumbar Spondylosis and | [facility] | | Trochanteric Bursitis ICD-10 Code M47.816 and ICD-10 [facility] | | Harshal Rubio presents to [...] + | Performing | Address | City/State[facility] | Phone Number | | Organization | | | | + + + + + | [facility] | [address] | [place] | [phone] | | [facility] | | [address] | | | - IMAGING | | [...]
--- OUTSIDE RECORDS SUMMARY | ~2019-10-10 | XMS | Encounter Summary ---
Demographics + + + | Address | [address] | | | [place] [address] | + + + | Home Phone [...] Providers + +------+ + | Care Agile Java Developer Name | Role | Phone | [...] + | 10/29/ | Telephone | [facility] | Sj Valdes MD | Appointment | | 2013 | | NEUROSURGERY [address] | [address] | (Increased | | | | [address] | [place] [address] | pain-requesting | | | | [place] | [phone] | [facility] | | | | [address] | | | | | | [phone] | | | +--------+ + + + [...] [place] | | | | | | [address] | | | | | | | | +--------+---------+ + + + documented as of this encounter Visit Diagnoses Not on filedocumented in this encounter"
--- OUTSIDE RECORDS SUMMARY | ~2019-10-10 | XMS | Encounter Summary ---
Demographics + + + | Address | [address] | | | [place] [address] | + + + | Home Phone [...] Providers + +------+ + | Care Director Community Organization Name | Role | Phone | + +------+ + | Romy De La Paz MD | PCP | | + +------+ + Encounter Details +--------+ + + + + | Date | Type | Department | Care Team | Description | +--------+ + + + + | 07/18/ | Clinical | [facility] | | Radiculopathy of | | 2019 | Support | NEUROSURGERY [address] | | thoracolumbar | | | | [address] | | region; | | | | [place], [place] | | Postlaminectomy | | | | [address] | | syndrome, thoracic | | | | [phone] | | region | +--------+ + + [...] concerns feel free to call us at [phone]. documented in this encounter Progress Notes Niki [...] that she will on occasion run a [place] ow grade fever and all tests and blood work come back negative infection, patient states she does have a history of UTI's as well. Patient was sent to [facility] for their scheduled pre-admit appointment, anesthesia [...] [place] | | | | | | [id number] | | | | | | | | +--------+---------+ + + + documented as of this encounter Visit Diagnoses + + | Diagnosis | + + | Radiculopathy of thoracolumbar region Thoracic or lumbosacral neuritis or | | radiculitis, unspecified | + + | Postlaminectomy syndrome, thoracic region | + + documented in this encounter
--- OUTSIDE RECORDS SUMMARY | ~2019-10-10 | XMS | Encounter Summary ---
Demographics + + + | Address | [address] | | | [place] [address] | + + + | Home Phone [...] Team Providers + +------+ + | Care Disability Insurance Claim Examiner Name | Role | Phone | [...] | | | | | bilateral | [place], [place] | | | | | | low back | [address] | | | | | | pain with | Phone: | | | | | | right-sided | [phone] | | | | | | sciatica | Fax: | | | | | | | [phone] | | + + + + + [...] | | | | | | [place] SURG | | | | | | | IMPLNT | | | | | | | NEUROELECT,E | | | | | | | PIDURAL [place] | | | | | | | IMPLANT | | | | | | | NEUROSTIM/RE | | | | | | | CEIVER [place] | | | | | | [...] + + | 08/03/ | Hospital | [facility] | Maykel Hutchins MD | BACK PAIN, LUMBAR | | 2019 - | Encounter | [facility] | [address] | (Primary Dx); | | | | CARE FLOOR [address] | [place], | Chronic bilateral | | 08/04/ | | [address] | [place] [address] | low back pain with | | 2019 | | [place] | [phone] | right-sided sciatica | | | | [address] | | | | | | [phone] | | | +--------+ + + + [...] note might be different from logan phillips. [facility]. 08/04/2019 DISCHARGE SUMMARY PATIENT NAME: Kori [...] by elevating your feet Date Last Reviewed: 8515-8976 [employer]. [address] [place] [address], [place] [address]. All righ ts reserved. This information is not intended as a substitute for professional medical care. Always follow your healthcare professional's instructions. Acetaminophen; Hydrocodone tablets or capsules Brand Names: Anexsia, Lorcet, Lorcet HD, Lorcet Plus, Lortab, Tatum, Verdrocet, Vicodin, Vi codin ES, Vicodin HP, [...] information carefully each time. Talk to your divisional storekeeper regarding the use of this medicine in children. Special care may be needed. What side effects may I notice from receiving this medicine? Side effects that you should report to your doctor or health spiritual care coordinator as soon as p ossible: [...] attention (report to your doctor or health spiritual care coordinator if they continue or are [...] to an official disposal site. Contact the [facility] at [phone] or your [facility] to find a site. If you [...] this medicine? Tell your doctor or health spiritual care coordinator if your pain does not [...] pharmacist, or health care provider. Copyright 2019 [employer] documented in this encounter Medications at Time [...] Decreased | | | | | | [facility] current | Responsiveness (May | | | [...] Faria MSW - 08/04/2019 2:12 PM PDTCase brand protection manager sent out Home Health order to [...] her up today to go home to [facility]. Past Medical History: Diagnosis Date Acid reflux disease Acute renal failure ([facility]) April 2013 Adverse effect of anesthesia hx hallucinations after anesthesia x 3 yrs ago. Anesthesia hallucinated after bladder repair Arthralgia Arthritis Asthma Asthma Back pain Cancer ([facility]) 2004 breast Cataract Cerebrovascular accident (CVA) ([facility]) no per pt Chronic back pain Chronic back pain Chronic constipation Concussion 07/2015 Preceeded by seizure Constipation COPD (chronic obstructive pulmonary disease) ([facility]) Degenerative disc disease Depression Depression Diabetes mellitus ([facility]) Diabetes mellitus, type 2 ([facility]) diet controlled Diabetes type 2, controlled ([facility]) diet controlled Diarrhea Disorder of [...] Scoliosis Scoliosis of lumbar spine 04/17/2014 Seizure ([facility]) one due to meds, two [...] 100 mg Oral BID PRN Julien Ang, RISK CONTROL OFFICER HYDROcodone-acetaminophen (NORCO) 10-325 mg per tablet 1 tablet 1 tablet Oral Q4H PRN Julien Ang, RISK CONTROL OFFICER 1 tablet at 08/04/19 0502 HYDROmorphone (DILAUDID) injection 0.2-0.4 mg 0.2-0.4 mg Intravenous Q1H PRN Maykel ortiz MD 0.2 mg at 08/03/19 1700 methocarbamol (ROBAXIN) tablet 1,500 mg 1,500 mg Oral Q6H PRN Julien Guzman, RISK CONTROL OFFICER ondansetron (ZOFRAN ODT) disintegrating tablet 4 mg 4 mg Oral Q6H PRN Julien Guzman, RISK CONTROL OFFICER rOPINIRole (REQUIP) tablet 4 mg 4 mg Oral 4x Daily PRN Maykel Hutchins MD senna (SENOKOT) tablet 8.6 mg 8.6 mg Oral BID PRN Julien Guzman, RISK CONTROL OFFICER sodium chloride 0.45% (1/2 NS) infusion Intravenous Continuous Maykel Hutchins MD 100 mL /hr at 08/03/19 1342 950 mL at 08/03/19 1342 sodium chloride 0.45% (1/2 NS) infusion Intravenous Continuous Julien Guzman, RISK CONTROL OFFICER 100 m L/hr at 08/04/19 0057 Allergies [...] [place] | | | | | | [address] | | | | | | | [...] | | | Needs | | | HOTEL DIRECTOR | | | reques | | | [...] | | | POC | performed at [facility];8 | | LABORATORY | | | | [address];[place], [place] | | | | | | [address] | | | | + + + + + + + + | Specimen | + + | | + + + + + + + | Performing | Address | City/State/Zipcode | Phone Number | | Organization | | | | + + + + + | [facility] | [address] | [place] [address] | [phone] | + + + + + POC Glucose (08/03/2019 4:15 PM PDT) + + + + + + | Component | Value | Ref Range | Performed | Pathologist | | | | | At | Signature | + + + + + + | Glucose, | 99Comment: Testing | 65 - 99 mg/dL | [facility] | | | POC | performed at [facility];[address] | | LABORATORY | | | | [address];[place] | | | | | | [address] | | | | + + + + + + + + | Specimen | + + | | + + + + + + + | Performing | Address | City/State/Zipcode | Phone Number | | Organization | | | | + + + + + | [facility] | [address] | [place] [address] | [phone] | + + + + + POC [...] | | | POC | performed at [facility];[address] | | LABORATORY | | | | [address];[place] | | | | | | [address] | | | | + + + + + + + + | Specimen | + + | | + + + + + + + | Performing | Address | City/State/Zipcode | Phone Number | | Organization | | | | + + + + + | [facility] | [address] | [place] [address] | [phone] | + + + + + POC Glucose (08/03/2019 11:05 AM PDT) + + + + + + | Component | Value | Ref Range | Performed | Pathologist | | | | | At | Signature | + + + + + + | Glucose, | 108 (H)Comment: Testing | 65 - 99 mg/dL | [facility] | | | POC | performed at [facility];[address] | | LABORATORY | | | | [address];[place] | | | | | | [address] | | | | + + + + + + + + | Specimen | + + | | + + + + + + + | Performing | Address | City/State/Zipcode | Phone Number | | Organization | | | | + + + + + | [facility] | [address] | [place] [address] | [phone] | + + + + + LINSEY [...] | | | POC | performed at [facility];[address] | | LABORATORY | | | | [address];[place] | | | | | | [address] | | | | + + + + + + + + | Specimen | + + | | + + + + + + + | Performing | Address | City/State/Zipcode | Phone Number | | Organization | | | | + + + + + | [facility] | [address] | [place] [address] | [phone] | + + + + + POC Glucose (08/03/2019 9:14 AM PDT) + + + + + + | Component | Value | Ref Range | Performed | Pathologist | | | | | At | Signature | + + + + + + | Glucose, | 80Comment: Testing | 65 - 99 mg/dL | [facility] | | | POC | performed at [facility];[address] | | LABORATORY | | | | [address];[place] | | | | | | [address] | | | | + + + + + + + + | Specimen | + + | | + + + + + + + | Performing | Address | City/State/Zipcode | Phone Number | | Organization | | | | + + + + + | [facility] | [address] | [place] [address] | [phone] | + + + + + Type [...] + + + | BB BAND | [id number] | | [facility] | | | | | | LABORATORY | | + + + + + + | BB BAND | Testing performed at | | [facility] | | | | [facility];[address] | | LABORATORY | | | | [address];[place] [address] | | | | + + + + + + + + | Specimen | + + | Blood | + + + + + + + | Performing | Address | City/State/Zipcode | Phone Number | | Organization | | | | + + + + + | [facility] | [address] | [place] [address] | [phone] | + + + + + POC Glucose (08/03/2019 7:23 AM PDT) + + + + + + | Component | Value | Ref Range | Performed | Pathologist | | | | | At | Signature | + + + + + + | Glucose, | 77Comment: Testing | 65 - 99 mg/dL | [facility] | | | POC | performed at [facility];[address] | | LABORATORY | | | | [address];[place], [place] | | | | | | [address] | | | | + + + + + + + + | Specimen | + + | | + + + + + + + | Performing | Address | City/State/Zipcode | Phone Number | | Organization | | | | + + + + + | [facility] | [address] | [place] [address] | [phone] | + + + + + documented [...] | | | | | | longer, drhvwz-hgl-hcwga use of | | | | | [...] | | | | | | | jqylig-hny-hfefm use of at least | | | [...]
--- OUTSIDE RECORDS SUMMARY | ~2019-10-10 | XMS | Encounter Summary ---
Demographics + + + | Address | [address] | | | [place] [address] | + + + | Home Phone [...] Providers + +------+ + | Care Deputy County Clerk Name | Role | Phone | + +------+ + | Miquel Calhoun MD | PCP | | + +------+ + Encounter Details +--------+ + + + + | Date | Type | Department | Care Team | Description | +--------+ + + + + | 09/13/ | Telephone | [facility] | Khushbu Cortez, | | | 2012 | | [facility] | RISK CONTROL FIELD REPRESENTATIVE [place], [place] | | | | | [address] | [address] | | | | | [place] Chamorro | | | | | | Bandar/[id number] [facility] | | | | | | [facility] | | | | | | [place] [address] | | | | | | [phone] | | | +--------+ + + + [...]
--- OUTSIDE RECORDS SUMMARY | ~2019-10-10 | XMS | Encounter Summary ---
Demographics + + + | Address | [address] | | | [place] [address] | + + + | Home Phone [...] Providers + +------+ + | Care City Jailer Name | Role | Phone | + [...] | | | | | right-sided | [place], [place] | [place], [place] | | | | | sciatica | [address] | [address] | | | | | Facet | Phone: | Phone: | | | | | arthritis of | [phone] | [phone] | | | | | lumbar | Fax: | Fax: | | | | | region | [phone] | [phone] | | | | | Foraminal | [...] | Popeye, | | | | | Junior Estimator / | Low back | Oxana Solorio, | [place], | | | | Physical | pain | INVESTIGATOR [employer] [address] | [place] | | | | Medicine and | Bilateral | [place] | [address] | | | | Rehabilitatio | leg pain | [place], | [place], | | | | n | Bilateral | [place] [address] | [place] [address] | | | | | hip pain | Phone: | Phone: | | | | | low back | [phone] | [phone] | | | | | pain, | Fax: | Fax: | | | | | bilateral | [phone] | [phone] | | | | | leg pain [...] | (Primary Dx); | | | | [facility] [place], | [place], | Chronic right-sided | | | | [place] [address] | [place] [address] | low back pain with | | | | [phone] | [phone] | right-sided | | | | | [...] 07/06/2016 9:31 AM PDT1) Lumbar MRI in [facility] - you need to call [...] of the procedure you must provide a truck driver's offsider to take you home. For all procedur [...] and working more hours due to the [employer] Round up. 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 Unfortunately she loal nues to have significant discomfort. It appears [...] has been ordered to be done at [place] [address]. We will follow up once images are [...] [place] | | | | | | [address] | | | | | | | [...] Spondylosis ICD-10 Code M47.816 Kori Caputo | [facility] | | Joanne presents to [...] + + | Performing | Address | City/State/[facility] | Phone Number | | Organization | | | | + + + + + | [facility] | [address] | [place] | [phone] | | [facility] | | [address] | | | - IMAGING | | [...]
--- OUTSIDE RECORDS SUMMARY | ~2019-10-10 | XMS | Encounter Summary ---
Demographics + + + | Address | [address] | | | [place] [address] | + + + | Home Phone [...] Team Providers + +------+ + | Care Direct Marketing Representative Name | Role | Phone | [...] [place] | | | | | | [address] | | | | | | [phone] | | | +--------+ + + + [...] [place] | | | | | | [address] | | | | | | | [...] + | [facility] | [address] | [place] | [phone] | | [facility] | | [address] | | | - LABORATORY | | | | + + + + + | [facility] | [address] | [place] | | | [facility] | | [address] | | | - LABORATORY | | | | + + + + + documented in this encounter Visit Diagnoses Not on filedocumented in this encounter"
--- OUTSIDE RECORDS SUMMARY | ~2019-10-10 | XMS | Encounter Summary ---
Demographics + + + | Address | [address] | | | [place] [address] | + + + | Home Phone [...] + + | Author | [facility] [employer] (Historical as of | | | 06-16-19) | + + + | Organization | [facility] (Historical as of | | | 06-16-19) [...] Providers + +------+ + | Care Paper Gluing Operator Name | Role | Phone | + +------+ + | Romy De La Paz MD | PCP | | + +------+ + Encounter Details +--------+ + + + + | Date | Type | Department | Care Team | Description | +--------+ + + + + | 08/03/ | Procedure | [facility] | | | | 2019 | Pass | [facility] Center | | | | | | Operating Room [address] | | | | | | [address] [facility] | | | | | | [place] [address] | | | | | | [phone] | | | +--------+ + + + [...]
--- OUTSIDE RECORDS SUMMARY | ~2019-10-10 | XMS | Encounter Summary ---
Demographics + + + | Address | [address] | | | [place] [address] | + + + | Home Phone [...] Providers + +------+ + | Care Screen Door Maker Name | Role | Phone | [...] + | 07/20/ | Telephone | [facility] | Maykel Hutchins MD | Procedure (Question) | | 2019 | | [facility] | [address] | | | | | ORTHOPEDIC SPINE | [place] | | | | | [address] [place] | [place] [address] | | | | | [place] | [phone] | | | | | [address] | | | | | | [phone] | | | +--------+ + + + [...] [place] | | | | | | [address] | | | | | | | | +--------+---------+ + + + documented as of this encounter Visit Diagnoses Not on filedocumented in this encounter"
--- OUTSIDE RECORDS SUMMARY | ~2019-10-10 | XMS | Encounter Summary ---
Demographics + + + | Address | [address] | | | [place] [address] | + + + | Home Phone [...] Team Providers + +------+ + | Care High Climber Name | Role | Phone | + [...] Management | | 2016 | | at [facility] [address] | [address] | (follow up BPs) | | | | Abbe Soto Mailcode: | [address] [place], | | | | | [address] | [place] [address] | | | | | [facility], | [phone] | | | | | [place] [address] [facility] | | | | | | Floor [place], [place] | | | | | | [address] | | | | | | [phone] | | | +--------+ + + + [...]
--- OUTSIDE RECORDS SUMMARY | ~2019-10-10 | XMS | Encounter Summary ---
Demographics + + + | Address | [address] | | | [place] [address] | + + + | Home Phone [...] Team Providers + +------+ + | Care Ux Research Associate Name | Role | Phone | [...] | | | | | (HCC) | [facility], | [address] | | | | | Scoliosis of | [place] [address] | [place], | | | | | lumbar | Phone: | [place] [address] | | | | | spine, | [phone] | Phone: | | | | | unspecified | Fax: | [phone] | | | | | scoliosis | [phone] | Fax: | | | | | type | | [phone] | | | | | Foraminal | [...] Scheduling Instructions | + + | Prefers [place] if possible | + + Reason for [...] low back | PA-C [address] | [place] | | | | | pain with | [address] | [address] | | | | | right-sided | [place] | Phone: | | | | | sciatica | [address] | [phone] | | | | | Facet | Phone: | Fax: | | | | | arthritis of | [phone] | [phone] | | | | | lumbar | Fax: | | | | | | region | [phone] | | | | | | Adolescent [...] | (Primary Dx); | | | | [facility] [address] | [place] [address] | Scoliosis of lumbar | | | | [place] | [phone] | spine, unspecified | | | | [address] | | scoliosis type; | | | | [phone] | | Foraminal stenosis | | | [...] from logan french original. Sj Valdes M.D. [address] [place] [address], [address] [place] [address] NEUROSURGERY HISTORY AND PHYSICAL EXAMINATION CHIEF COMPLAINT: [...] Intrinsics 5 4 Ulnar Intrinsics 5 4 Biochemistry Teacher Strength 5 4 Hip Flexion 5 4* [...] she continues to see a psychologist in [place]. Despite her continued evaluation, I do not [...] | | | | | | DRIVE [place], [place] | | | | | | [id number] | | | | | | | [...] | | | | region ([facility]) Left | | | | | | [...]
--- OUTSIDE RECORDS SUMMARY | ~2019-10-10 | XMS | Clinical Summary ---
Demographics + + + | Address | [address] | | | [place] [address] | + + + | Home Phone [...] | Author | [facility] [employer] (Historical as of | | | 06-16-19) | + + + | Organization | [facility] (Historical as of | | | 06-16-19) [...] Providers + +------+ + | Care Elastic Tape Inserter Name | Role | Phone | [...] +---------+------+------+-------+ | | Apply to affected | 14315 g | 3 | 04/30 | 04/30 [...] Overview: Added automatically from request for surgery [id number] | + + + + + | Radiculopathy of thoracolumbar region | 06/07/2019 | + + + + + | Overview: Added automatically from request for surgery [id number] | + + + + + | Radiculopathy, lumbosacral region | 06/07/2019 | + + + + + | Overview: Added automatically from request for surgery [id number] | + + + + + | Spondylosis without myelopathy or radiculopathy, cervical region | 03/20/2019 | + + + + + | Overview: Added automatically from request for surgery [id number] | + + + + + | Spondylosis without myelopathy or radiculopathy, lumbosacral | 03/20/2019 | | region | | + + + + + | Overview: Added automatically from request for surgery [id number] | + + + + + | Chronic bilateral low back pain without sciatica | 03/20/2019 | + + + + + | Overview: Added automatically from request for surgery [id number] | + + + + + | Strain of lumbar region | 02/25/2019 | + + + + + | Overview: Added automatically from request for surgery [id number] | + + + + + | Lumbar region somatic dysfunction | 02/25/2019 | + + + + + | Overview: Added automatically from request for surgery [id number] | + + + + + | Chronic low back pain with sciatica | 02/25/2019 | + + + + + | Overview: Added automatically from request for surgery [id number] | + + + + + | Intervertebral disc disorders with radiculopathy, lumbosacral | 02/25/2019 | | region | | + + + + + | Overview: Added automatically from request for surgery [id number] | + + + + + | Spinal stenosis of lumbosacral region | 02/25/2019 | + + + + + | Overview: Added automatically from request for surgery [id number] | + + + + + | [...] Overview: Added automatically from request for surgery [id number] | | Problem List Die Holder Utility | + + + + + [...] | | 11/23/ | [id number] | | [id number]: Qty: 1 on | | | MEDICAL - | | 2020 | S | | 03/28/2019 by Sonja, | | | JU | | | /[address] | | DO Alfredo | | | [...] +------+-------+ + | MEDICARE | MEDICA | [id number] | | | [address] | | | RE | | | | [place] [address] | | | IP-OP | | | | | + +--------+ +------+-------+ + | COMMERCIAL OTHER | COMMER | [id number] | | | | | | CIAL [...] BOWEN | al/Fam | | 1945 | [phone] | [place] [address] | | | jose | | | [phone] | | + +--------+ +--------+ + +
--- OUTSIDE RECORDS SUMMARY | ~2019-10-10 | XMS | Encounter Summary ---
Demographics + + + | Address | [address] | | | [place] [address] | + + + | Home Phone [...] Providers + +------+ + | Care Car Tracer Name | Role | Phone | + +------+ + | Miquel Calhoun MD | PCP | | + +------+ + Encounter Details +--------+ + + + + | Date | Type | Department | Care Team | Description | +--------+ + + + + | 10/18/ | Telephone | [facility] | Khushbu Cortez, | | | 2012 | | [facility] | TICKET MANAGER [place], [place] | | | | | [address] | [address] | | | | | [place] Chamorro | | | | | | Bandar/[id number] [facility] | | | | | | [facility] | | | | | | [place] [address] | | | | | | [phone] | | | +--------+ + + + [...]
--- OUTSIDE RECORDS SUMMARY | ~2019-10-10 | XMS | Encounter Summary ---
Demographics + + + | Address | [address] | | | [place] [address] | + + + | Home Phone [...] Team Providers + +------+ + | Care Overhead Foreman Name | Role | Phone | + [...] + + | 07/05/ | Telephone | [facility] | Maykel Hutchins MD | Advice Only; Other | | 2019 | | [facility] | [address] | (inform office) | | | | ORTHOPEDIC SPINE | [place] | | | | | [address] [place] | [place] [address] | | | | | [place] | [phone] | | | | | [address] | | | | | | [phone] | | | +--------+ + + + [...] [place] | | | | | | [address] | | | | | | | [...]
--- OUTSIDE RECORDS SUMMARY | ~2019-10-10 | XMS | Encounter Summary ---
Demographics + + + | Address | [address] | | | [place] [address] | + + + | Home Phone [...] Team Providers + +------+ + | Care Mechanic Foreman Name | Role | Phone | + +------+ + | Wendi Aiken | PCP | | + +------+ + Encounter Details +--------+ + + + + | Date | Type | Department | Care Team | Description | +--------+ + + + + | 06/13/ | Hospital | [facility] | SonjaAlfredo DO | Closed compression | | 2018 | Encounter | MEDICAL CENTER | [address] | fracture of fifth | | | | CLINICAL DECISION | [place] [address] | lumbar vertebra, | | | | [address] | [phone] | initial encounter | | | | [place], [place] | | ([facility]) | | | | [address] | | | | | | [phone] | | | +--------+ + + + [...] 06/13/181408 Date of Service: 06/13/181408 Status: Signed Cloth Folder Machine: Cristiane Araujo RN (Registered Nurse) Pt discharge [...] Surgery Author Type: Registered Nurse Filed: 06/13/18 1003 Date of Service: 06/13/18 100 Status: Signed Cloth Folder Machine: Kiya Dietrich RN (Registered Nurse) Report given [...] [place] | | | | | | [id number] | | | | | | | [...] | LAB | | | | [address];[place] | | | | | | [address] | | | | + + + [...]
--- OUTSIDE RECORDS SUMMARY | ~2019-10-10 | XMS | Encounter Summary ---
Demographics + + + | Address | [address] | | | [place] [address] | + + + | Home Phone [...] Team Providers + +------+ + | Care Ferryboat Deckhand Name | Role | Phone | + [...] | | | [facility] [address] [place], [place] | | | | | [address] | [address] | | | | | [place], [place] | | | | | | [address] | | | | | | [phone] | | | +--------+ + + + [...] [place] | | | | | | [address] | | | | | | | | +--------+---------+ + + + documented as of this encounter Visit Diagnoses Not on filedocumented in this encounter"
--- OUTSIDE RECORDS SUMMARY | ~2019-10-10 | XMS | Encounter Summary ---
Demographics + + + | Address | [address] | | | [place] [address] | + + + | Home Phone [...] Providers + +------+ + | Care Water Treatment Plant Operator Name | Role | Phone [...] | | [facility] | AUTOMATION CONTROL INTEGRATOR [place], [place] | | | | | [address] | [address] | | | | | [place] | | | | | | Bandar/[id number] [facility] | | | | | | [facility] | | | | | | [place] [address] | | | | | | [phone] | | | +--------+ + + + [...]
--- OUTSIDE RECORDS SUMMARY | ~2019-10-10 | XMS | Encounter Summary ---
Demographics + + + | Address | [address] | | | [place] [address] | + + + | Home Phone [...] Team Providers + +------+ + | Care Publication Specialist Name | Role | Phone | [...] | | | | [place] | [place] [address] | [address] | | | | | Lumbar | Phone: | Phone: | | | | | radiculopath | [phone] | [phone] | | | | | y | Fax: | Fax: | | | | | Procedures | [phone] | [phone] | | | | | HIM 04/17/18 [...] fracture of fifth | | | | [place], | [address] [place] | lumbar vertebra, | | | | [place] [address] | [place] [address] | sequela (Primary | | | | [phone] | [phone] | Dx); Lumbar | | | | [...] [place] | | | | | | [address] | | | | | | | | +--------+---------+ + + + + + +--------+ + + | Name | Type | Priori | Associated Diagnoses | Order Schedule | | | | ty | | | + + +--------+ + + | AMB REFERRAL TO [facility] | Outpatient | Routin | Closed [...]
--- OUTSIDE RECORDS SUMMARY | ~2019-10-10 | XMS | Encounter Summary ---
Demographics + + + | Address | [address] | | | [place] [address] | + + + | Home Phone [...] Providers + +------+ + | Care Cash Applications Analyst Name | Role | Phone | [...] | | [address] [place] | [place] [address] | | | | | [place], [place] | [phone] | | | | | [address] | | | | | | [phone] | | | +--------+ + + + [...] [place] | | | | | | [address] | | | | | | | | +--------+---------+ + + + documented as of this encounter Visit Diagnoses Not on filedocumented in this encounter"
--- OUTSIDE RECORDS SUMMARY | ~2019-10-10 | XMS | Encounter Summary ---
Demographics + + + | Address | [address] | | | [place] [address] | + + + | Home Phone [...] Providers + +------+ + | Care Ice Maker Name | Role | Phone | [...] [address] | | | | | [place], | [place], [place] | | | | | [place] [address] | [address] | | | | | [phone] | | | +--------+ + + + [...] [place] | | | | | | [address] | | | | | | | | +--------+---------+ + + + documented as of this encounter Visit Diagnoses Not on filedocumented in this encounter"
--- OUTSIDE RECORDS SUMMARY | ~2019-10-10 | XMS | Encounter Summary ---
Demographics + + + | Address | [address] | | | [place] [address] | + + + | Home Phone [...] Team Providers + +------+ + | Care Button Cutter Name | Role | Phone | [...] + + | 09/04/ | Telephone | [facility] | Shay Dietz | Appointment | | 2012 | | PHYSIATRY [address] | [address], [address] | | | | | [place], | [place], [place] | | | | | [place] [address] | [address] | | | | | [phone] | | | +--------+ + + + [...] [place] | | | | | | [address] | | | | | | | | +--------+---------+ + + + documented as of this encounter Visit Diagnoses Not on filedocumented in this encounter"
--- OUTSIDE RECORDS SUMMARY | ~2019-10-10 | XMS | Encounter Summary ---
Demographics + + + | Address | [address] | | | [place] [address] | + + + | Home Phone [...] Team Providers + +------+ + | Care Mannequin Mounter Name | Role | Phone | [...] + + | 08/31/ | Telephone | [facility] | Denys Sibley, | Back Pain (Severe | | 2019 | | [facility] | DO [address] | pain) | | | | [address]Y [address] | [address] [place], [place] | | | | | [address] | [address] | | | | | [place], [place] | | | | | | [address] | | | | | | [phone] | | | +--------+ + + + [...] [place] | | | | | | [address] | | | | | | | | +--------+---------+ + + + documented as of this encounter Visit Diagnoses Not on filedocumented in this encounter"
--- OUTSIDE RECORDS SUMMARY | ~2019-10-10 | XMS | Encounter Summary ---
Demographics + + + | Address | [address] | | | [place] [address] | + + + | Home Phone [...] | Author | [facility] (Historical as of | | | 06-16-19) [...] Team Providers + +------+ + | Care Funeral Limousine Driver Name | Role | Phone | + +------+ + | Romy De La Paz MD | PCP | | + +------+ + Encounter Details +--------+ + + + + | Date | Type | Department | Care Team | Description | +--------+ + + + + | 08/03/ | Procedure | [facility] | | | | 2019 | Pass | Medical Center | | | | | | Operating Room [address] | | | | | | [facility] | | | | | | [place] [address] | | | | | | [phone] | | | +--------+ + + + [...]
--- OUTSIDE RECORDS SUMMARY | ~2019-10-10 | XMS | Encounter Summary ---
Demographics + + + | Address | [address] | | | [place] [address] | + + + | Home Phone [...] + + | 08/31/ | Telephone | [facility] | Niki Pizarro, | Other (patient | | 2019 | | NEUROSURGERY [address] | RN | trying to reach | | | | [address] | | [facility]'s office) | | | | [place] | | | | | | [address] | | | | | | [phone] | | | +--------+ + + + [...] [place] | | | | | | [address] | | | | | | | | +--------+---------+ + + + documented as of this encounter Visit Diagnoses Not on filedocumented in this encounter"
--- OUTSIDE RECORDS SUMMARY | ~2019-10-10 | XMS | Encounter Summary ---
Demographics + + + | Address | [address] | | | [place] [address] | + + + | Home Phone [...] Team Providers + +------+ + | Care Nutritional Chemist Name | Role | Phone | + [...] | | [address] [place] | [place] [address] | | | | | [place] | [phone] | | | | | [address] | | | | | | [phone] | | | +--------+ + + + [...] [place] | | | | | | [address] | | | | | | | | +--------+---------+ + + + documented as of this encounter Visit Diagnoses Not on filedocumented in this encounter"
--- OUTSIDE RECORDS SUMMARY | ~2019-10-10 | XMS | Encounter Summary ---
Demographics + + + | Address | [address] | | | [place] [address] | + + + | Home Phone [...] Providers + +------+ + | Care Head Screen Worker Name | Role | Phone | [...] | MRI Lumbar | [place], | [address] | | | | | Spine wo | [place] [address] | Phone: | | | | | Contrast | Phone: | [phone] | | | | | | [phone] | Fax: | | | | | | Fax: | [phone] | | | | | | [phone] | | +--------+--------+ + + + + Reason for Visit + + + | Reason | Comments | + + + | Follow-up | Discuss Injections | + + + Encounter Details +--------+---------+ + + + | Date | Type | Department | Care Team | Description | +--------+---------+ + + + | 04/03/ | Office | [facility] | Juan, Nick, | Lumbar radiculopathy | | 2018 | Visit | PHYSIATRY [address] | PA-C [address] | (Primary Dx); BACK | | | | [place], | [address] [place] | PAIN, LUMBAR; | | | | [place] [address] | [place] [address] | SACROILIITIS; DDD | | | | [phone] | [phone] | (degenerative disc | | | | [...] of the procedure you must provide a laundry route driver to take you home. For all [...] press against a nerve. Date Last Reviewed: 08/03/[id number] [employer]. [address] [place] [address], [place] [address]. All righ ts reserved. This information is [...] and working more hours due to the [employer] Round up. Her pain ba ck is [...] no apparent deficits with short or terminal worker memory. She has appropriate fund of [...] [place] | | | | | | [address] | | | | | | | [...]
--- OUTSIDE RECORDS SUMMARY | ~2019-10-10 | XMS | Encounter Summary ---
Demographics + + + | Address | [address] | | | [place] [address] | + + + | Home Phone [...] Providers + +------+ + | Care Nut Sifter Name | Role | Phone | + [...] | SR | | | | | [phone] | | | +--------+ + + + [...] [place] | | | | | | [address] | | | | | | | | +--------+---------+ + + + documented as of this encounter Visit Diagnoses Not on filedocumented in this encounter
--- OUTSIDE RECORDS SUMMARY | ~2019-10-10 | XMS | Encounter Summary ---
Demographics + + + | Address | [address] | | | [place] [address] | + + + | Home Phone [...] Team Providers + +------+ + | Care Florist Name | Role | Phone | + +------+ + | Concepción Gallardo NP | PCP | | + +------+ + Encounter Details +--------+ + + + + | Date | Type | Department | Care Team | Description | +--------+ + + + + | 11/26/ | Emergency | [facility] | Garth Pedroza MD | Convulsions, | | 2016 | | MEDICAL CENTER | [address] | unspecified | | | | EMERGENCY CENTER | [place] [address] | convulsion type | | | | [address] | [phone] | ([facility]); Generalized | | | | [place], [place] | | weakness | | | | [address] | | | | | | [phone] | | | +--------+ + + + [...] [place] | | | | | | [address] | | | | | | | [...] | | LAB | | | | [facility];[address];[place] [address] | | | | + + + + + + | Clarity | CLEARComment: Testing | | EXTERNAL | | | | performed at [facility];[address] | | LAB | | | [address];[place] | | | | | | [address] | | | | + + + + + + | Specific | 1.008Comment: Testing | 1.002 - 1.030 | EXTERNAL | | | Sycamore | performed at [facility];[address] | | LAB | | | [address];[place] | | | | | | [address] | | | | + + + + + + | Leukocyte | NEGATIVEComment: Testing | | EXTERNAL | | | Esterase, | performed at [facility];[address] | | LAB | | | Urine | [address];[place] | | | | | | [address] | | | | + + + + + + | Nitrite, | NEGATIVEComment: Testing | | EXTERNAL | | | Urine | performed at [facility];[address] | | LAB | | | | [address];[place] | | | | | | [address] | | | | + + + + + + | Urobilinoge | NORMALComment: Testing | mg/dL | EXTERNAL | | | n, Urine | performed at [facility];[address] | | LAB | | | | [address];[place] | | | | | | [address] | | | | + + + + + + | Protein, | NEGATIVEComment: Testing | mg/dL | EXTERNAL | | | Urine | performed at [facility];[address] | | LAB | | | | [address];[place] | | | | | | [address] | | | | + + + + + + | pH, Urine | 5.0Comment: Testing | 5.0 - 8.0 | EXTERNAL | | | | performed at [facility];[address] | | LAB | | | | [address];[place] | | | | | | [address] | | | | + + + + + + | Blood, | NEGATIVEComment: Testing | | EXTERNAL | | | Urine | performed at [facility];[address] | | LAB | | | | [address];[place] | | | | | | [address] | | | | + + + + + + | Ketones | NEGATIVEComment: Testing | mg/dL | EXTERNAL | | | | performed at [facility];[address] | | LAB | | | | [address];[place] | | | | | | [address] | | | | + + + + + + | Bilirubin, | NEGATIVEComment: Testing | | EXTERNAL | | | Urine | performed at [facility];[address] | | LAB | | | | [address];[place] | | | | | | [address] | | | | + + + + + + | Glucose, | NEGATIVEComment: Testing | mg/dL | EXTERNAL | | | Urine | performed at [facility];[address] | | LAB | | | | [address];[place] | | | | | | [address] | | | | + + + [...] EXTERNAL | | | | performed at [facility];[address] | K/uL | LAB | | | | [address];[place], [place] | | | | | | [address] | | | | + + + + + -+ | RED CELL | 4.61Comment: Testing | 3.70 - 5.10 | EXTERNAL | | | COUNT | performed at [facility];888 | M/uL | LAB | | | | [address];[place] | | | | | | [address] | | | | + + + + + -+ | Hgb | 13.4Comment: Testing | 11.3 - 15.5 | EXTERNAL | | | | performed at [facility];888 | g/dL | LAB | | | | [address];[place] | | | | | | [address] | | | | + + + + + -+ | Hematocrit, | 40.4Comment: Testing | 34.0 - 46.0 % | EXTERNAL | | | POC | performed at [facility];[address] | | LAB | | | | [address];[place] | | | | | | [address] | | | | + + + + + -+ | MCV | 87.7Comment: Testing | 80.0 - 100.0 fl | EXTERNAL | | | | performed at [facility];[address] | | LAB | | | | [address];[place] | | | | | | [address] | | | | + + + + + -+ | MCH | 29.1Comment: Testing | 27.0 - 34.0 pg | EXTERNAL | | | | performed at [facility];[address] | | LAB | | | | [address];[place] | | | | | | [address] | | | | + + + + + -+ | MCHC | 33.2Comment: Testing | 32.0 - 35.5 | EXTERNAL | | | | performed at [facility];888 | g/dL | LAB | | | | [address];[place] | | | | | | [address] | | | | + + + + + -+ | RDW-CV | 39.8Comment: Testing | 37 - 53 fl | EXTERNAL | | | | performed at [facility];[address] | | LAB | | | | [address];[place] | | | | | | [address] | | | | + + + + + -+ | Platelet | 287Comment: Testing | 150 - 400 K/uL | EXTERNAL | | | Count | performed at [facility];[address] | | LAB | | | Plasma | [address];[place] | | | | | | [address] | | | | + + + + + -+ | MPV | 7.7Comment: Testing | fl | EXTERNAL | | | | performed at [facility];[address] | | LAB | | | | [address];[place] | | | | | | [address] | | | | + + + + + -+ | Differentia | AUTOMATEDComment: | | EXTERNAL | | | l Type | Testing performed at | | LAB | | | | [facility];[address];[place] [address] | | | | + + + + + -+ | % Segmented | 45.19Comment: Testing | % | EXTERNAL | | | | performed at [facility];[address] | | LAB | | | Neutrophils | [address];[place] | | | | | | [address] | | | | + + + + + -+ | % | 44.63Comment: Testing | % | EXTERNAL | | | Lymphocytes | performed at [facility];[address] | | LAB | | | | [address];[place] | | | | | | [address] | | | | + + + + + -+ | % Monocytes | 7.42Comment: Testing | % | EXTERNAL | | | | performed at [facility];[address] | | LAB | | | | [address];[place] | | | | | | [address] | | | | + + + + + -+ | % | 1.58Comment: Testing | % | EXTERNAL | | | Eosinophils | performed at [facility];[address] | | LAB | | | | [address];[place] | | | | | | [address] | | | | + + + + + -+ | % Basophils | 1.18Comment: Testing | % | EXTERNAL | | | | performed at [facility];[address] | | LAB | | | | [address];[place] | | | | | | [address] | | | | + + + + + -+ | Absolute | 3.08Comment: Testing | 1.90 - 7.40 | EXTERNAL | | | Segmented | performed at [facility];888 | K/uL | LAB | | | Neutrophils | [address];[place] | | | | | | [address] | | | | + + + + + -+ | Absolute | 3.04Comment: Testing | 1.00 - 3.90 | EXTERNAL | | | Lymphocytes | performed at [facility];888 | K/uL | LAB | | | | [address];[place] | | | | | | [address] | | | | + + + + + -+ | Absolute | 0.51Comment: Testing | 0.00 - 0.80 | EXTERNAL | | | Monocytes | performed at [facility];888 | K/uL | LAB | | | | [address];[place] | | | | | | [address] | | | | + + + + + -+ | Absolute | 0.11Comment: Testing | 0.00 - 0.50 | EXTERNAL | | | Eosinophils | performed at [facility];888 | K/uL | LAB | | | | [address];[place] | | | | | | [address] | | | | + + + + + -+ | Absolute | 0.08Comment: Testing | 0.00 - 0.10 | EXTERNAL | | | Basophils | performed at [facility];888 | K/uL | LAB | | | | [address];[place] | | | | | | [address] | | | | + + + + + -+ | Na | 139Comment: Testing | 135 - 143 | EXTERNAL | | | | performed at [facility];888 | mmol/L | LAB | | | | [address];[place] | | | | | | [address] | | | | + + + + + -+ | K | 4.1Comment: SLT | 3.5 - 4.9 | EXTERNAL | | | | HEMOLYSISTesting | mmol/L | LAB | | | | performed at [facility];[address] | | | | | | [address];[place] | | | | | | [address] | | | | + + + + + -+ | Cl | 106Comment: Testing | 99 - 109 mmol/L | EXTERNAL | | | | performed at [facility];[address] | | LAB | | | | [address];[place] | | | | | | [address] | | | | + + + + + -+ | CO2 | 28Comment: Testing | 23 - 32 mmol/L | EXTERNAL | | | | performed at [facility];[address] | | LAB | | | | [address];[place] | | | | | | [address] | | | | + + + + + -+ | Anion Gap | 9Comment: Testing | 5 - 20 mmol/L | EXTERNAL | | | | performed at [facility];[address] | | LAB | | | | [address];[place] | | | | | | [address] | | | | + + + + + -+ | Glucose, | 78Comment: Testing | 65 - 99 mg/dL | EXTERNAL | | | Fasting | performed at [facility];[address] | | LAB | | | | [address];[place] | | | | | | [address] | | | | + + + + + -+ | BUN | 16Comment: Testing | 8 - 25 mg/dL | EXTERNAL | | | | performed at [facility];[address] | | LAB | | | | [address];[place] | | | | | | [address] | | | | + + + + + -+ | Creatinine | 0.82Comment: Testing | 0.50 - 1.00 | EXTERNAL | | | | performed at [facility];888 | mg/dL | LAB | | | | [address];[place] | | | | | | [address] | | | | + + + + + -+ | BUN/Creatin | 20Comment: Testing | | EXTERNAL | | | ine Ratio | performed at [facility];[address] | | LAB | | | | [address];[place] | | | | | | [address] | | | | + + + + + -+ | Calcium | 8.3 (L)Comment: Testing | 8.5 - 10.5 | EXTERNAL | | | | performed at [facility];888 | mg/dL | LAB | | | | [address];[place] | | | | | | [address] | | | | + + + + + -+ | Protein, | 7.3Comment: Testing | 6.3 - 8.2 g/dL | EXTERNAL | | | Total | performed at [facility];[address] | | LAB | | | | [address];[place] | | | | | | [address] | | | | + + + + + -+ | Albumin | 3.7Comment: Testing | 3.3 - 4.8 g/dL | EXTERNAL | | | | performed at [facility];[address] | | LAB | | | | [address];[place] | | | | | | [address] | | | | + + + + + -+ | Globulin | 3.6Comment: Testing | 1.3 - 4.9 g/dL | EXTERNAL | | | | performed at [facility];[address] | | LAB | | | | [address];[place] | | | | | | [address] | | | | + + + + + -+ | A/G Ratio | 1.0Comment: Testing | 1.0 - 2.4 | EXTERNAL | | | | performed at [facility];888 | | LAB | | | | [address];[place] | | | | | | [address] | | | | + + + + + -+ | Bilirubin | 0.2Comment: Testing | 0.1 - 1.5 mg/dL | EXTERNAL | | | Total | performed at [facility];888 | | LAB | | | | [address];[place] | | | | | | [address] | | | | + + + + + -+ | ALP, | 69Comment: Testing | 35 - 115 U/L | EXTERNAL | | | External | performed at [facility];888 | | LAB | | | | [address];[place] | | | | | | [address] | | | | + + + + + -+ | AST | 22Comment: SLT | 10 - 45 U/L | EXTERNAL | | | | HEMOLYSISTesting | | LAB | | | | performed at [facility];888 | | | | | | [address];[place] | | | | | | [address] | | | | + + + + + -+ | ALT | 31Comment: Testing | 10 - 65 U/L | EXTERNAL | | | | performed at [facility];888 | | LAB [...] | | | | | | at [facility];[address] | | | | | [address];[place] [address] | | | | + + + + + -+ | CK, Total | 128Comment: Testing | 30 - 240 U/L | EXTERNAL | | | | performed at [facility];[address] | | LAB | | | | [address];[place] | | | | | | [address] | | | | + + + [...] [facility];[address] | | | | | | [address];[place] | | | | | | [address] | | | | + + + + + -+ | aPTT, | 27Comment: Testing | 23 - 32 seconds | EXTERNAL | | | Patient | performed at [facility];[address] | | LAB | | | | [address];[place] | | | | | | [address] | | | | + + + + + -+ | CK-MB | 3.2Comment: Testing | 0.5 - 3.6 ng/mL | EXTERNAL | | | | performed at [facility];888 | | LAB | | | | [address];[place] | | | | | | [address] | | | | + + + [...] | | | Fingerstick | performed at [facility];888 | | LAB | | | | [address];[place] | | | | | | [address] | | | | + + + [...]
--- OUTSIDE RECORDS SUMMARY | ~2019-10-10 | XMS | Encounter Summary ---
Demographics + + + | Address | [address] | | | [place] [address] | + + + | Home Phone [...] + +------+ + | Care Medical Office Assistant Name | Role | Phone | [...] + + | 08/05/ | Emergency | [facility] | Dion Richardson | Chronic low back | | 2014 | | [facility] | Laz Richards MD | pain (Primary Dx); | | | | CENTER [address] | [address] | Weakness | | | | [place] | [place] | | | | | [address] | [address] | | | | | [phone] | | | +--------+ + + + [...] [place] | | | | | | [address] | | | | | | | [...] [address] | [place] | [phone] | | [facility] | | [address] | | | - LABORATORY | | | | + + + + + | [address] | [address] | [place] | | | [facility] | | [address] | | | - LABORATORY | | [...] ALEX | | | | | | [facility] | | | | | [...] + | [address] | [address] | [place] | [phone] | | [facility] | | [address] | | | - LABORATORY | | | | + + + + + | [address] | [address] | [place], [place] | | | [facility] | | [address] | | | - LABORATORY | | [...] (H) | 7 - 18 mg/dL | [facility] | | | | | | [facility] | | | | | | MEDICAL | | | | | | CENTER - | | | | | | LABORATORY | | + + + + + + | Creatinine | 0.75 | 0.60 - 1.30 | [facility] | | | | | mg/dL | [facility] | | | | | | MEDICAL | | | | | | CENTER - | | | | | | LABORATORY | | + + + + + + | eGFR if not | >60Comment: GLOMERULAR | >=60 | [facility] | | | | FILTRATION | mL/min/1.73m2 | [facility] | | | [place] | RATE,ESTIMATED | | MEDICAL | | | | mL/min/1.45l4Evsi than | | CENTER - | | [...] + | [facility] | [address] | [place], [place] | [phone] | | [facility] | | [address] | | | - LABORATORY | | | | + + + + + | [facility] | [address] | [place], [place] | | | [facility] | | [address] | | | - LABORATORY | | [...] | Basophils | | K/uL | [facility] | | | | | [...] + | [facility] | [address] | [place] | [phone] | | [facility] | | [address] | | | - LABORATORY | | | | + + + + + | [facility] | [address] | [place] | | | [facility] | | [address] | | | - LABORATORY | | [...] + | [facility] | [address] | [place], [place] | [phone] | | [facility] | | [address] | | | - LABORATORY | | | | + + + + + | [facility] | [address] | [place], [place] | | | [facility] | | [address] | | | - LABORATORY | | [...]
--- OUTSIDE RECORDS SUMMARY | ~2019-10-10 | XMS | Encounter Summary ---
Demographics + + + | Address | [address] | | | [place] [address] | + + + | Home Phone [...] Team Providers + +------+ + | Care Material Assistant Name | Role | Phone | [...] | | 2016 | Encounter | at [facility] [address] | [address] | [place] | | | | Mcadams Brittany Mailcode: | [facility] | | | | | [address] | [place] [address] | | | | | [facility], | [phone] | | | | | [place] [address] [facility] | | | | | | Floor [place], [place] | | | | | | [address] | | | | | | [phone] | | | +--------+ + + + [...]
--- OUTSIDE RECORDS SUMMARY | ~2019-10-10 | XMS | Encounter Summary ---
Demographics + + + | Address | [address] | | | [place] [address] | + + + | Home Phone [...] Providers + +------+ + | Care Field Investigator Name | Role | Phone | [...] + + | 05/09/ | Telephone | [facility] | Nick Martinez, | Results, Imaging | | 2017 | | PHYSIATRY [address] | PA-C [address] | | | | | [place], | [address] [place] | | | | | [place] [address] | [place] [address] | | | | | [phone] | [phone] | | | | | | | [...] [place] | | | | | | [address] | | | | | | | | +--------+---------+ + + + documented as of this encounter Visit Diagnoses Not on filedocumented in this encounter"
--- OUTSIDE RECORDS SUMMARY | ~2019-10-10 | XMS | Encounter Summary ---
Demographics + + + | Address | [address] | | | [place] [address] | + + + | Home Phone [...] Providers + +------+ + | Care Food Service Agent Name | Role | Phone | + +------+ + | Romy De La Paz MD | PCP | | + +------+ + Encounter Details +--------+ + + + + | Date | Type | Department | Care Team | Description | +--------+ + + + + | 07/17/ | Prep for | [facility] | Maykel Hutchins MD | Chronic low back | | 2019 | Procedure | [facility] | [address] | pain with sciatica, | | | | ORTHOPEDIC SPINE | [facility], | sciatica laterality | | | | [address] [place] | [place] [address] | unspecified, | | | | [place] [facility] [place] | [phone] | unspecified back | | | | [address] | | pain laterality | | | | [phone] | | (Primary Dx); Right | | [...] [place] | | | | | | [address] | | | | | | | [...]
--- OUTSIDE RECORDS SUMMARY | ~2019-10-10 | XMS | Encounter Summary ---
Demographics + + + | Address | [address] | | | [place] [address] | + + + | Home Phone [...] Team Providers + +------+ + | Care Reverberatory Furnace Supervisor Name | Role | Phone | + +------+ + PCP | Unavailable | + +------+ + Encounter Details +--------+ + + + + | Date | Type | Department | Care Team | Description | +--------+ + + + + | 02/22/ | Hospital | [facility] | Ken Craft | | | 2005 - | Encounter | [facility] | MD Masha [address] | | | | | TH ADULT [address] [place], [place] | | | 02/28/ | | [address] [place], [place] | [address] | | | 2005 | | [address] | | | | | | [phone] | Samantha Estes | | | | | | MD Jewel [address] | | | | | [address] | | | | | | [place] [address] | | | | | | | [...] [place] | | | | | | [address] | | | | | | | | +--------+---------+ + + + documented as of this encounter Visit Diagnoses Not on filedocumented in this encounter"
--- OUTSIDE RECORDS SUMMARY | ~2019-10-10 | XMS | Encounter Summary ---
Demographics + + + | Address | [address] | | | [place] [address] | + + + | Home Phone [...] Providers + +------+ + | Care Licensed Bondsman Name | Role | Phone | + +------+ + | Oxana Nye | PCP | | + +------+ + Encounter Details +--------+ + + + + | Date | Type | Department | Care Team | Description | +--------+ + + + + | 10/04/ | MyChart | Cardiology General | | Appointment Location | | 2015 | Encounter | at [facility] [address] | | Change: Effective | | | | Mcadams Brittany Mailcode: | | October 31 | | | | [address] | | | | | | Health and Healing, | | | | | | | | | | | | Floor [place], [place] | | | | | | [address] | | | | | | [phone] | | | +--------+ + + + [...]
--- OUTSIDE RECORDS SUMMARY | ~2019-10-10 | XMS | Encounter Summary ---
Demographics + + + | Address | [address] | | | [place] [address] | + + + | Home Phone [...] + +------+ + | Care Director Of Volunteer Services Name | Role | Phone | [...] low | J Luis, | [address] | | | | | back pain | Shay Mukherjee MD | [place], | | | | | Procedures | [address] | [place] | | | | | MRI Lumbar | [place] | [address] | | | | | Spine wo | [place], [place] | Phone: | | | | | Contrast | [address] | [phone] | | | | | | Phone: | Fax: | | | | | | [phone] | [phone] | | | | | | Fax: | | | | | | | [phone] | | +--------+--------+ + + + + [...] + + | 08/16/ | Office | [facility] | Shay Dietz | Chronic low back | | 2012 | Visit | PHYSIATRY [address] | T, [address] | pain (Primary Dx); | | | | [place], | [address] [place], [place] | DISC DISEASE, | | | | [place] [address] | [address] | LUMBAR; Facet | | | | [phone] | | arthritis of lumbar | | [...] [place] | | | | | | [address] | | | | | | | [...]
--- OUTSIDE RECORDS SUMMARY | ~2019-10-10 | XMS | Encounter Summary ---
Demographics + + + | Address | [address] | | | [place] [address] | + + + | Home Phone [...] Team Providers + +------+ + | Care Fat Purification Worker Name | Role | Phone | [...] | | | stenosis | B | [address] | | | | | | [place], [place] | Phone: | | | | | | [address] | [phone] | | | | | | Phone: | Fax: | | | | | | [phone] | [phone] | | | | | | Fax: | | | | | | | [phone] | | + +--------+ + + + + Encounter Details +--------+---------+ + + + | Date | Type | Department | Care Team | Description | +--------+---------+ + + + | 08/16/ Office | [facility] | Denys Sibley, | S/P insertion of | | 2018 | Visit | [facility] | DO [address] | spinal cord | | | | [address] [place] | stimulator (Primary | | | | [address] [place] | [address] | Dx); Spinal stenosis | | | | [place], [place] | | of lumbosacral | | | | [address] | | region; Intractable | | | | [phone] | | back pain; Encounter | | [...] anterior chest wall every 72 hours, and Lehigh 7.5/325 1 p.o. every 6 hours as [...] Screen 08/03/2019 NEGATIVE Final BB BAND 08/03/2019 [id number] Final BB BAND 08/03/2019 Testing performed at [facility];[address] [place] [address];[place] [address] Final Glucose, POC 08/03/2019 77 65 - [...] Final Antibody Screen 07/18/2019 Testing performed at [facility];[address] [place] [address];[place] [address] Final SOURCE: 07/18/2019 NARES(NOSE) Final Result 07/18/2019 [...] to physical therapy, mass age therapy, acupuncture, family member caretaker, along with recommended psychological counseling , either privately, or in group sessions offered by private care individuals, community serv ices, or gnosticist organizations. Appropriate referrals were made [...] every 72 hours con tinue with the Lehigh 10/325 1 p.o. every 6 hours as needed breakthrough pain and Robaxin 500 mg every 6 hours as needed muscle spasms Patient understands and is in full agreement with the above plan, Will return to office in 4 weeks, [facility] was consulted and appears appropriate, Urine [...] [place] | | | | | | [address] | | | | | | | [...]
--- OUTSIDE RECORDS SUMMARY | ~2019-10-10 | XMS | Encounter Summary ---
Demographics + + + | Address | [address] | | | [place] [address] | + + + | Home Phone [...] Team Providers + +------+ + | Care Gauntlet Pairer Name | Role | Phone | [...] + + | 08/16/ | Office | [facility] | Gabi Guzman | S/P insertion of | | 2019 | Visit | [facility] | [address] | spinal cord | | | | ORTHOPEDIC SPINE | [address] | stimulator (Primary | | | | [address] | [place] [address] | Dx); DDD | | | | [place], [place] | [phone] | (degenerative disc | | | | [address] | | disease), lumbar; | | | | [phone] | | Facet arthritis of | | [...] accompanied by her friend, and the Akhtar new accounts banking representative for the spinal cord stimulator, f [...] non-medical: Not on file Occupational History Occupation: [employer] Tobacco Use Smoking status: Never Smoker Smokeless [...] Procedure: KYPHOPLASTY; Surgeon: Alfredo Casillas DO; Location: [facility] MAIN OR; Service: Pa in Management; Laterality: N/A; L5 FRACTURE SURGERY ANKLE HERNIA REPAIR HYSTERECTOMY HYSTERECTOMY LAMINECTOMY N/A 08/03/2019 Procedure: LAMINOTOMY THORACIC / LUMBAR W/ PLACEMENT SPINAL CORD STIMULATOR; Surgeon: Suly Hutchins MD; Location: [facility] MAIN OR OTHER SURGICAL HISTORY EPIDURAL STEROID INJECTION OTHER SURGICAL HISTORY 08/28/2018 EPIDURAL STEROID INJECTION - LESI L4-L5 OTHER SURGICAL HISTORY 09/11/2018 EPIDURAL STEROID INJECTION - LESI L5-S1 OTHER SURGICAL HISTORY UNLISTED PROCEDURE ARTHROSCOPY SLING REMOVAL , BLADDER 2006 TUBAL LIGATION UPPER GASTROINTESTINAL ENDOSCOPY Past Medical History: Diagnosis Date Acid reflux disease Acute renal failure ([facility]) April 2013 Adverse effect of anesthesia hx hallucinations after anesthesia x 3 yrs ago. Anesthesia hallucinated after bladder repair Arthralgia Arthritis Asthma Asthma Back pain Cancer ([facility]) 2005 breast Cataract Cerebrovascular accident (CVA) ([facility]) no per pt Chronic back pain Chronic back pain Chronic constipation Concussion 07/2015 Preceeded by seizure Constipation COPD (chronic obstructive pulmonary disease) ([facility]) Degenerative disc disease Depression Depression Diabetes mellitus ([facility]) Diabetes mellitus, type 2 ([facility]) diet controlled Diabetes type 2, controlled [...] [place] | | | | | | [address] | | | | | | | [...]
--- OUTSIDE RECORDS SUMMARY | ~2019-10-10 | XMS | Encounter Summary ---
Demographics + + + | Address | [address] | | | [place] [address] | + + + | Home Phone [...] Team Providers + +------+ + | Care Cyberathlete Name | Role | Phone | + +------+ + PCP | Unavailable | + +------+ + Encounter Details +--------+ + + + + | Date | Type | Department | Care Team | Description | +--------+ + + + + | 12/08/ | Hospital | [facility] | | | | 1994 - | Encounter | MED CTR GENERIC PSY | | | | | | CONV DEPT [address] | | | | 12/18/ | | [place], | | | | 1992 | | [place] [address] | | | | | | [phone] | | | +--------+ + + + [...] [place] | | | | | | [address] | | | | | | | | +--------+---------+ + + + documented as of this encounter Visit Diagnoses Not on filedocumented in this encounter"
--- OUTSIDE RECORDS SUMMARY | ~2019-10-10 | XMS | Encounter Summary ---
Demographics + + + | Address | [address] | | | [place] [address] | + + + | Home Phone [...] Providers + +------+ + | Care Plant Custodian Name | Role | Phone | [...] Thoracic or | [place], | [address] | | | | | lumbosacral | Shay Mukherjee MD | [place], | | | | | neuritis or | [address] | [place] | | | | | | [place] | [address] | | | | | radiculitis, | [place], [place] | Phone: | | | | | unspecified | [address] | [phone] | | | | | Procedures | Phone: | Fax: | | | | | DC INJECT | [phone] | [phone] | | | | | ANES/STEROID | Fax: | | | | | | FORAMEN | [phone] | | | | | | LUMBAR/SACRA | | | | | | | L W IMG | | | | | | | GUIDE ,1 | | | | | | | LEVEL DC | | | | | | [...] + + | 04/18/ | Hospital | [facility] | Sp[place], | Left lumbar | | 2013 | Encounter | MED CTR XRAY [address] | [address] | radiculopathy; | | | | [place] | MICHAEL FITCH, | Chronic low back | | | | [place] [address] | [place] [address] | pain; Facet | | | | [phone] | [phone] | arthritis of lumbar | | | | | | region; Foraminal | | | | | Apprenticeship Training Representative [facility] | stenosis of lumbar | | [...] [place] | | | | | | [address] [...] ICD-9 Code 724.4 Kori Caputo | [facility] | | Joanne presents to the [...] [address] | [place] | [phone] | | [facility] | | [address] | | | - IMAGING | | [...]
--- OUTSIDE RECORDS SUMMARY | ~2019-10-10 | XMS | Encounter Summary ---
Demographics + + + | Address | [address] | | | [place] [address] | + + + | Home Phone [...] Providers + +------+ + | Care It Consulting Director Name | Role | Phone | [...] | 2016 | Encounter | at [facility] [address] | [address] [address] [facility] | | | | | Mcadams Brittany Mailcode: | [facility] [address] [place], | | | | | [address] | [place] [address] | | | | | Health and Healing, | [phone] | | | | | [facility] | | | | | | Floor [place], [place] | | | | | | [address] | | | | | | [phone] | | | +--------+ + + + [...]
--- OUTSIDE RECORDS SUMMARY | ~2019-10-10 | XMS | Encounter Summary ---
Demographics + + + | Address | [address] | | | [place] [address] | + + + | Home Phone [...] Providers + +------+ + | Care Bobbin Collector Name | Role | Phone | [...] pain log reponse) | | | | [place], | [address] [place] | | | | | [place] [address] | [address] | | | | | [phone] | | | +--------+ + + + [...] [place] | | | | | | [address] | | | | | | | | +--------+---------+ + + + documented as of this encounter Visit Diagnoses Not on filedocumented in this encounter"
--- OUTSIDE RECORDS SUMMARY | ~2019-10-10 | XMS | Encounter Summary ---
Demographics + + + | Address | [address] | | | [place] [address] | + + + | Home Phone [...] Providers + +------+ + | Care Gate Watch Name | Role | Phone | + [...] | | | stenosis | B | [address] | | | | | | [place], [place] | Phone: | | | | | | [address] | [phone] | | | | | | Phone: | Fax: | | | | | | [phone] | [phone] | | | | | | Fax: | | | | | | | [phone] | | + +--------+ + + + + Encounter Details +--------+---------+ + + + | Date | Type | Department | Care Team | Description | +--------+---------+ + + + | 06/18/ | Office | [facility] | Denys Sibley, | SACROILIITIS | | 2018 | Visit | [facility] | DO [address] | (Primary Dx); | | | | [address]OLOGY [address] [place] | Spondylosis of | | | | [address] [place] | [address] | lumbar region | | | | [place], [place] | | without myelopathy | | | | [address] | | or radiculopathy; | | | | [phone] | | BACK PAIN, LUMBAR; | | [...] | | | | | | pain; long-term | | | | | | current [...] the other nostri l. Talk to your courtesy bus driver regarding the use of this medicine in children. While this drug m ay be prescribed for children as young as newborns for selected conditions, precautions do a pply. What side effects may I notice from receiving this medicine? Side effects that you should report to your doctor or health day care home mother as soon as p ossible: allergic reactions like skin rash, itching or hives, swelling of the face, lips, or tong ue breathing problems fast, irregular heartbeat high blood pressure pain that was controlled by narcotic pain medicine seizures Side effects that usually do not require medical attention (report to your doctor or health day care home mother if they continue or are bothersome): anxious [...] phone number of your doctor or health day care home mother and local hospital ready. You may need to have additional doses of this medicine. Each nasal spray contains a single dose. Some emergencies may require additional doses. After use, bring the treated person to the nearest hospital or call 911. Make sure the [facility] health day care home mother knows that the person has received an [...] bladder repair Arthralgia Asthma Asthma Cancer ([facility]) 2004 breast Cerebrovascular accident (CVA) ([facility]) [...] to physical therapy, mass age therapy, acupuncture, medicare nurse, along with recommended psychological counseling , [...] regarding this and or current official [facility] approved disposal sites. Continue current medication regime with these changes and/ or additions :refill her fenta nyl patch 25 by grams applied to the anterior chest wall q72 hours, and Norco7.5/325 one po q6 hours prn pain Patient understands and is in full agreement with the above plan, Will return to office in 4 weeks, [facility] was consulted and appears [...] complications with the passage of time. 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
--- OUTSIDE RECORDS SUMMARY | ~2019-10-10 | XMS | Encounter Summary ---
Demographics + + + | Address | [address] | | | [place] [address] | + + + | Home Phone [...] + | Author | [facility] (Historical as of | | | 06-16-19) | + + + | Organization | [facility] (Historical as of | | | 06-16-19) | + + + | Address | Unknown | + + + | Phone | Unavailable | + + + Support + + +---------+ + | Name | Relationship | Address | Phone | + + +---------+ + | Giuseppe Menchaca | ECON | Unknown | | + + +---------+ + | Nathlaia Weinstein | ECON | Unknown | | + + +---------+ + Care Team Providers + +------+ + | Care Carbon Sequestration Plant Manager Name | Role | Phone | + +------+ + | Romy De La Paz MD | PCP | | + +------+ + Encounter Details +--------+---------+ + + + | Date | Type | Department | Care Team | Description | +--------+---------+ + + + | 08/03/ | Surgery | [facility] | Maykel Hutchins MD | SPINAL CORD | | 2019 | | [facility] | [address] | STIMULATOR - | | | | Operating Room [address] | [place] [address] | THORACIC LAMINECTOMY | | | | [address] | [phone] | | | | | [place] [address] | | | | | | [phone] | | | +--------+---------+ + + + [...]
--- OUTSIDE RECORDS SUMMARY | ~2019-10-10 | XMS | Encounter Summary ---
Demographics + + + | Address | [address] | | | [place] [address] | + + + | Home Phone [...] Providers + +------+ + | Care Motor Operator Name | Role | Phone | [...] Management | | 2016 | | at [facility] [address] | [address] | (follow up BPs) | | | | Abbe Soto Mailcode: | [address] [place], | | | | | [address] | [place] [address] | | | | | Health and Healing, | [phone] | | | | | [place] [address] [facility] | | | | | | Floor [place], [place] | | | | | | [address] | | | | | | [phone] | | | +--------+ + + + [...]
--- OUTSIDE RECORDS SUMMARY | ~2019-10-10 | XMS | Encounter Summary ---
Demographics + + + | Address | [address] | | | [place] [address] | + + + | Home Phone [...] Team Providers + +------+ + | Care Summer School Coordinator Name | Role | Phone | [...] 2013 | | PHYSIATRY [address] | AUTOMATION AND CONTROLS SUPERVISOR | (Primary Dx) | | | | [place], | | | | | | [place] [address] | | | | | | [phone] | | | +--------+ + + + [...] [place] | | | | | | [address] | | | | | | | [...] radiculopathy ICD-9 Code 724.4 Ms. Sheikh | [facility] | | Joanne presents to the fluoroscopy suite for a [facility] | | fluoroscopically-guided left L5-S1 [...] [address] | [place] | [phone] | | [facility] | | [address] | | | - IMAGING | | | | + + + + + documented in this encounter Visit Diagnoses + + | Diagnosis | + + | Lumbar radiculopathy - Primary Thoracic or lumbosacral neuritis or radiculitis, | | unspecified | + + documented in this encounter"
--- OUTSIDE RECORDS SUMMARY | ~2019-10-10 | XMS | Encounter Summary ---
Demographics + + + | Address | [address] | | | [place] [address] | + + + | Home Phone [...] Providers + +------+ + | Care Manager Etl Name | Role | Phone | + +------+ + | Romy De La Paz MD | PCP | | + +------+ + Encounter Details +--------+ + + + + | Date | Type | Department | Care Team | Description | +--------+ + + + + | 10/18/ | Telephone | [facility] | Shay Dietz | | | 2012 | | MEDICINE [address] | MD Lonny [address] | | | | | [address] [facility] | [place], [place] | | | | | [place] [address] | [address] | | | | | [phone] | | | +--------+ + + + [...] [place] | | | | | | [address] | | | | | | | | +--------+---------+ + + + documented as of this encounter Visit Diagnoses Not on filedocumented in this encounter"
--- OUTSIDE RECORDS SUMMARY | ~2019-10-10 | XMS | Encounter Summary ---
Demographics + + + | Address | [address] | | | [place] [address] | + + + | Home Phone [...] Team Providers + +------+ + | Care Radiopharmacist Name | Role | Phone | + [...] | Chest | Referring | [place] [address] | | | | | pressure | Provider Per | [address] | | | | | Procedures | Patient NO | [address] | | | | | [place] NEW | REFERRING | [place], [place] | | | | | PATIENT | PROVIDER PER | [address] Phone: | | | | | L[place]EL [place] | PT | [phone] | | | | | OFFICE/OUTPT | | Fax: | | | | | | | [phone] | | | | | VISIT,EST,LE | | | | | | | GINA III [place] | | | | | | | OFFICE/OUTPT | | | | | | | | | | | | | | VISIT,EST,LE | | | | | | | VL IV [place] | | | | | | [...] | | 2015 | Visit | at [facility] [address] | [address] | unspecified type | | | | Mcad[place]any Mailcode: | [address] [facility], | (Primary Dx); | | | | [address] | [place] [address] | Palpitations | | | | Health and Healing, | [phone] | | | | | [facility] | | | | | | Floor [place], [place] | | | | | | [address] | | | | | | [phone] | | | +--------+---------+ + + + [...] per Dr. Fuchs's note. Tiago Blake DO Exchange Clerk Clinical healthcare advisory services manager/ Division of Cardiovascular Medicine Airam Nicole Md - 03/09/2016 3:27 PM PDT [facility] General Cardiology New Patient Evaluation Patient [...] ED. She was then transf erred to [facility] where she was put into the ICU [...] every couple of weeks. She comes to [facility] today because she wants a second [...] | + + + + + | [facility] LIPID LAB | [address] | [place], [place] | | | | [address] | [address] | | + + + + + documented in this encounter Visit Diagnoses + + | Diagnosis | + + | Chest pain, unspecified type - Primary | + + | Palpitations | + + documented in this encounter
--- OUTSIDE RECORDS SUMMARY | ~2019-10-10 | XMS | Encounter Summary ---
Demographics + + + | Address | [address] | | | [place] [address] | + + + | Home Phone [...] Providers + +------+ + | Care Senior Java Software Engineer Name | Role | Phone | [...] | | 2012 | | [facility] | TAX PREPARER [place], [place] | | | | | [address] | [address] | | | | | [place]orro | | | | | | Bandar/[id number] [facility] | | | | | | [facility] | | | | | | [place] [address] | | | | | | [phone] | | | +--------+ + + + [...]
--- OUTSIDE RECORDS SUMMARY | ~2019-10-10 | XMS | Encounter Summary ---
Demographics + + + | Address | [address] | | | [place] [address] | + + + | Home Phone [...] Providers + +------+ + | Care Director Search Marketing Strategies Name | Role | Phone | + [...] + | 11/01/ | Office | [facility] | Shay Dietz | Back pain (Primary | | 2012 | Visit | PHYSIATRY [address] | T, [address] | Dx); BACK PAIN, | | | | [place], | [place], [place] | LUMBAR; | | | | [place] [address] | [address] | OSTEOARTHRITIS, | | | | [phone] | | LUMBOSACRAL SPINE; | | | [...] - 11/01/2012 9:06 AM PST[facility] your scheduled [facility] [...] our off ice. Please also provide a ambulette driver to take you home on the [...] [place] | | | | | | [address] | | | | | | | [...]
--- OUTSIDE RECORDS SUMMARY | ~2019-10-10 | XMS | Encounter Summary ---
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 | [address] | [place] | [phone] | | [facility] | | [address] | | | - IMAGING | | [...]
--- OUTSIDE RECORDS SUMMARY | ~2019-10-10 | XMS | Encounter Summary ---
Demographics + + + | Address | [address] | | | [place] [address] | + + + | Home Phone [...] Team Providers + +------+ + | Care Flamer Sealer Name | Role | Phone | + [...] | | | | | (HCC) | [facility], | [address] | | | | | Scoliosis of | [place] [address] | [place], | | | | | lumbar | Phone: | [place] [address] | | | | | spine, | [phone] | Phone: | | | | | unspecified | Fax: | [phone] | | | | | scoliosis | [phone] | Fax: | | | | | type | | [phone] | | | | | Foraminal | [...] Scheduling Instructions | + + | Prefers [place] if possible | + + Reason for [...] low back | PA-C [address] | [place] | | | | | pain with | [address] | [address] | | | | | right-sided | [place] | Phone: | | | | | sciatica | [address] | [phone] | | | | | Facet | Phone: | Fax: | | | | | arthritis of | [phone] | [phone] | | | | | lumbar | Fax: | | | | | | region | [phone] | | | | | | Adolescent [...] + + | 07/12/ | Office | [facility] | Sj Valdes MD | SACROILIITIS | | 2017 | Visit | NEUROSURGERY [address] | [address] | (Primary Dx); | | | | [facility] [address] | [place] [address] | Scoliosis of lumbar | | | | [place] | [phone] | spine, unspecified | | | | [address] | | scoliosis type; | | | | [phone] | | Foraminal stenosis | | | [...] from logan french original. Sj Valdes M.D. [address] [place] [address], [address] [place] [address] NEUROSURGERY HISTORY AND PHYSICAL EXAMINATION CHIEF COMPLAINT: [...] deficits with short or nursing home memory. MOTOR EXAM: (5 IS NORMAL) * Indicates pain limited MUSCLE/ MOVEMENT: RIGHT LEFT Deltoids 5 4+ Biceps 5 5 Triceps 5 5 Wrist Flexion 5 5 Wrist Extension 5 5 Median Intrinsics 5 4 Ulnar Intrinsics 5 4 Costume Mistress Strength 5 4 Hip Flexion 5 4* [...] she continues to see a psychologist in [place]. Despite her continued evaluation, I do not [...] | | | | | | DRIVE [place], [place] | | | | | | [id number] | | | | | | | [...] | | | | | region ([facility]) Left | | | | [...]
--- OUTSIDE RECORDS SUMMARY | ~2019-10-10 | XMS | Encounter Summary ---
Demographics + + + | Address | [address] | | | [place] [address] | + + + | Home Phone [...] Team Providers + +------+ + | Care Electron Beam Machine Welder Setter Name | Role | Phone | [...] | | [address] | [place] [address] | | | | | [place] | [phone] | | | | | [address] | | | | | | [phone] | | | +--------+ + + + [...] [place] | | | | | | [address] | | | | | | | | +--------+---------+ + + + documented as of this encounter Visit Diagnoses Not on filedocumented in this encounter"
--- OUTSIDE RECORDS SUMMARY | ~2019-10-10 | XMS | Encounter Summary ---
Demographics + + + | Address | [address] | | | [place] [address] | + + + | Home Phone [...] Providers + +------+ + | Care Paint Preparer Name | Role | Phone | [...] | | 2012 | | [facility] | [address] | | | | | [address] | Juliana Schulte [place], | | | | | [place] | [place] [address] | | | | | [id number] | [phone] | | | | | [facility], | | | | | | [place] [address] | | | | | | [phone] | | | +--------+ + + + [...]
--- OUTSIDE RECORDS SUMMARY | ~2019-10-10 | XMS | Encounter Summary ---
Demographics + + + | Address | [address] | | | [place] [address] | + + + | Home Phone [...] Providers + +------+ + | Care Small Battery Plate Assembler Name | Role | Phone | [...] Chronic low | [place], | [address] | | | | | back pain | Shay Mukherjee MD | [place], | | | | | Lumbar | [address] | [place] | | | | | radiculopath | [place] | [address] | | | | | y | [place] | Phone: | | | | | Procedures | [address] | [phone] | | | | | MRI Lumbar | Phone: | Fax: | | | | | Spine wo | [phone] | [phone] | | | | | Contrast | Fax: | | | | | | MRI | [phone] | | +--------+--------+ + + + + [...] pain (Primary Dx); | | | | [place], | [place] | Lumbar radiculopathy | | | | [place] [address] | [address] | | | | | [phone] | | | +--------+ + + + [...] [place] | | | | | | [address] | | | | | | | [...] + | MISCELLANEOUS LAB | | | [phone] | + +---------+ + + | MISCELANIOUS LAB | | | [phone] | + +---------+ + + documented in this encounter Visit Diagnoses + + | Diagnosis | + + | Chronic low back pain - Primary Lumbago | + + | Lumbar radiculopathy Thoracic or lumbosacral neuritis or radiculitis, unspecified | + + documented in this encounter"
--- OUTSIDE RECORDS SUMMARY | ~2019-10-10 | XMS | Encounter Summary ---
Demographics + + + | Address | [address] | | | [place] [address] | + + + | Home Phone [...] Team Providers + +------+ + | Care Worship Leader Name | Role | Phone | [...] [address] | | | | | [place], [place] | [place] [address] | | | | | [address] | [phone] | | | | | [phone] | | | +--------+ + + + [...] [place] | | | | | | [address] | | | | | | | | +--------+---------+ + + + documented as of this encounter Visit Diagnoses Not on filedocumented in this encounter"
--- OUTSIDE RECORDS SUMMARY | ~2019-10-10 | XMS | Encounter Summary ---
Demographics + + + | Address | [address] | | | [place] [address] | + + + | Home Phone [...] Providers + +------+ + | Care Heel Cementer Machine Name | Role | Phone | + +------+ + | No, Physician | PCP | Unavailable | + +------+ + Encounter Details +--------+ + + + + | Date | Type | Department | Care Team | Description | +--------+ + + + + | 01/03/ [facility] | Shay Dietz | | | 2013 | Encounter | MED CTR XRAY [address] | T, [address] | | | | | [place] | [place] | | | | | [place] [address] | [address] | | | | | [phone] | | | +--------+ + + + [...] [place] | | | | | | [address] | | | | | | | | +--------+---------+ + + + documented as of this encounter Visit Diagnoses Not on filedocumented in this encounter"
--- OUTSIDE RECORDS SUMMARY | ~2019-10-10 | XMS | Encounter Summary ---
Demographics + + + | Address | [address] | | | [place] [address] | + + + | Home Phone [...] and Services Oleary | | | and Prtieshana | + + + | Organization | [...] Team Providers + +------+ + | Care Denture Packer Name | Role | Phone | + +------+ + | Wendi Aiken | PCP | | + +------+ + Encounter Details +--------+ + + + + | Date | Type | Department | Care Team | Description | +--------+ + + + + | 06/07/ | Hospital | [facility] | Conversion | | | 2018 | Encounter | CENTER P[facility] | Transaction, | | | | | CLINIC [address] | Provider Unknown | | | | | [place], [place] | | | | | | [address] | (Fax) | | | | | [phone] | | | +--------+ + + + [...] [place] | | | | | | [address] | | | | | | | [...] | | | Basophils | performed at [facility], [address] | K/uL | LAB | | | | Josue Donnelly, | | | | | | [place] [address] | | | | + + + [...] | | | | | performed at [facility], [address] | | | | | | [facility], | | | | | | [place] [address] | | | | + + + [...]
--- OUTSIDE RECORDS SUMMARY | ~2019-10-10 | XMS | Encounter Summary ---
Demographics + + + | Address | [address] | | | [place] [address] | + + + | Home Phone [...] Organization | [facility] | | | and [place] | + [...] Team Providers + +------+ + | Care Superintendent Meters Name | Role | Phone | + [...] | | Closed | [address] | [address] [place], | | | | | compression | DRIVE | [place] [address] | | | | | fracture of | [place], | Phone: | | | | | fifth lumbar | [place] [address] | [phone] | | | | | vertebra | Phone: | Fax: | | | | | sequela | [phone] | [phone] | | | | | Degenerative | Fax: | | | | | | lumbar | [phone] | | | | | | spinal [...] + + | 09/18/ | Office | [facility] | Alfredo Casillas, DO | S/P insertion of | | 2019 | Visit | [facility] | [address] | spinal cord | | | | [address] | [place] [address] | stimulator (Primary | | | | [address] [place], | [phone] | Dx); Spinal stenosis | | | | [place] [address] | | of lumbosacral | | | | [phone] | | region; Lumbar | | | [...] Casillas DO - 09/18/2019 9:10 AM PST [facility]: Interventional Pain Management 09/18/2019 Kori [...] Procedure: KYPHOPLASTY; Surgeon: Alfredo Casillas DO; Location: [facility]; Service: Pa in Management; Laterality: [...] level: Not on file Occupational History Occupation: [employer] Social Needs Financial resource strain: Not on [...] file Gets together: Not on file Attends mormon service: Not on file Active member of [...] did refer her to an orthopedist in [place] where she randal es; so, we will [...] 09/18/2019 This document has been prepared with XATA voice recognition system. The possibility of "s ound alike" pediatric psychiatrist errors, and additions, or deletions may occur. [...] [place] | | | | | | [address] | | | | | | | [...]
--- OUTSIDE RECORDS SUMMARY | ~2019-10-10 | XMS | Encounter Summary ---
Demographics + + + | Address | [address] | | | [place] [address] | + + + | Home Phone [...] +------+ + | Care Associate Professor Of Sociology Name | Role | Phone | + [...] | | | | [address] | [place] [address] | | | | | [place], [place] | [phone] | | | | | [address] | | | | | | [phone] | | | +--------+ + + + [...] [place] | | | | | | [address] | | | | | | | [...]
--- OUTSIDE RECORDS SUMMARY | ~2019-10-10 | XMS | Encounter Summary ---
Demographics + + + | Address | [address] | | | [place] [address] | + + + | Home Phone [...] | | [address] | [place] [address] | Foraminal stenosis | | | | [place], [place] | [phone] | of lumbar region - | | | | [address] | | left L5-S1; DDD | | | | [phone] | | (degenerative disc | | | [...] from t manolo phillips. Sj Valdes M.D. [address] [place] [address], [address] [place] [address] FAX: NEUROSURGERY HISTORY AND PHYSICAL EXAMINATION CHIEF [...] Intrinsics 5 4 Ulnar Intrinsics 5 4 Supervisor Hanging And Trimming Strength 5 4 Hip Flexion 5 4 [...] | | | | | | DRIVE [place], [place] | | | | | | [address] | | | | | | | [...]
--- OUTSIDE RECORDS SUMMARY | ~2019-10-10 | XMS | Encounter Summary ---
Demographics + + + | Address | [address] | | | [place] [address] | + + + | Home Phone [...] Team Providers + +------+ + | Care Aquatic Director Name | Role | Phone | [...] + + | 04/28/ | [facility] | [facility] | Jean-Paul Flowers, | Chronic hip pain, | | 2014 | | MED CTR EMERGENCY | MD [address] | right (Primary Dx); | | | | CENTER [address] | [place] | Chronic low back | | | | [place] | [address] | pain; Frequent falls | | | | [address] | | | | | | [phone] | | | +--------+ + + + [...] Nugent MD - 04/28/2015Follow-up with Isaura from [facility] social work for assistance with home [...] [place] | | | | | | [address] | | | | | | | [...] | ---- | | | 04/28/2015 08:18 [facility] | | | Emergency -Right Hip to Toe 04/23/2015 10:50 [facility]. | | | [facility] 04/13/2015 | | | 07:46 [facility] Emergency | | | -Other chronic [...] | not stated as uncontrolled 04/10/2015 [facility] Emergency -Surgical or [...] | | | | -Dehydration 04/09/2015 10:50 [facility] | | | Urgent Care -History [...] as uncontrolled | | | 04/07/2015 07:45 [facility] | | | Urgent Care -Unspecified [...] in stool 03/26/2015 | | | 07:15 [facility] Emergency | | | -Diabetes mellitus [...] other | | | medications 03/07/2015 10:45 [facility] | | | Urgent Care -Loss [...] of weight | | | 02/17/2015 09:15 [facility] | | | Urgent Care -Dysuria [...] in | | | breast 02/14/2015 09:50 [facility] | | | Urgent Care -Other [...] chronic pain | | | 02/11/2015 09:00 [facility] | | | Urgent Care -Loss [...] [facility] 2 | | | 0 [facility] 15 | | | 0 [facility] 18 | | | 0 Total Note: Visits indicate total | | | known visits. Medicaid [place] Dx are the number of primary diagnoses on | | | the [facility]'s non-emergent dx list. | | | | [...]
--- OUTSIDE RECORDS SUMMARY | ~2019-10-10 | XMS | Encounter Summary ---
Demographics + + + | Address | [address] | | | [place] [address] | + + + | Home Phone [...] Providers + +------+ + | Care Residence Director Name | Role | Phone | + +------+ + | Wendi Aiken | PCP | | + +------+ + Encounter Details +--------+ + + + + | Date | Type | Department | Care Team | Description | +--------+ + + + + | 12/28/ | Hospital | [facility] | Conversion | Diagnosis unknown | | 2018 | Encounter | CONVERSION [address] | Transaction, | | | | | [address] | Provider Unknown | | | | | [place], [place] | [phone] | | | | | [address] | | | | | | [phone] | | | +--------+ + + + [...] [place] | | | | | | [address] | | | | | | | [...]
--- OUTSIDE RECORDS SUMMARY | ~2019-10-10 | XMS | Encounter Summary ---
Demographics + + + | Address | [address] | | | [place] [address] | + + + | Home Phone [...] Providers + +------+ + | Care Data Mining Analyst Name | Role | Phone | [...] | Telephone | [facility] [place] | [place], | Injections | | 2015 | | PHYSIATRY [address] | [address] | | | | | [place], | [place] [facility], | | | | | [place] [address] | [place] [address] | | | | | [phone] | [phone] | | | | | | | [...] [place] | | | | | | [address] | | | | | | | | +--------+---------+ + + + documented as of this encounter Visit Diagnoses Not on filedocumented in this encounter"
--- OUTSIDE RECORDS SUMMARY | ~2019-10-10 | XMS | Encounter Summary ---
Demographics + + + | Address | [address] | | | [place] [address] | + + + | Home Phone [...] Team Providers + +------+ + | Care Spot Sprayer Name | Role | Phone | + +------+ + | Miquel Calhoun MD | PCP | | + +------+ + Encounter Details +--------+ + + + + | Date | Type | Department | Care Team | Description | +--------+ + + + + | 05/01/ | Hospital | [facility] | Shay Dietz | | | 2012 | Encounter | MED CTR XRAY [address] | T, [address] | | | | | [place] | [facility] [place], [place] | | | | | [place] [address] | [address] | | | | | [phone] | | | +--------+ + + + [...] [place] | | | | | | [address] | | | | | | | [...] Performed At | + + + | [facility] | [place] | | Department [address] [facility] | [facility] | | [ rep [facility]] [ rep [facility] | | [facility]] Signed | - IMAGING | | | | | Patient Name: WAYNEKORI PARIS | | | Physician: OMID : [id number] Age: 67 Sex: F Unit | | | #: [id number] Exam Date: 05/01/13 Location: | | | IMG.INV Report #: [id number] Page: | | | %(RAD)RES..mtdd.print.filter("pg") of %(RAD) | | | RES..mtdd.print.filter("tpg") | | | | | | Accession Number: [id number] | | | PROCEDURE NOTE LUMBAR FACET [...] Transcribed | | | Date/Time: 05/09/2013 18:53 Group Burner Machine: | | | <<Signature on File>> | | | Shay Mukherjee | | | MD J [id number]/15/[id number] <Electronically signed by Shay Mukherjee | | | J Luis SALGADO> Shay Dietz MD 05/09/131812 | | | Group Burner Machine: Yudelka Yvecqhdxpgwmu74/10/[id number] | | | | | + + + + + + + + | Performing | Address | City/State/Zipcode | Phone Number | | Organization | | | | + + + + + | [facility] | [address] | [place] | [phone] | | [facility] | | [address] | | | - IMAGING | | | | + + + + + documented in this encounter Visit Diagnoses Not on filedocumented in this encounter
--- OUTSIDE RECORDS SUMMARY | ~2019-10-10 | XMS | Encounter Summary ---
Demographics + + + | Address | [address] | | | [place] [address] | + + + | Home Phone [...] Team Providers + +------+ + | Care Company Doctor Name | Role | Phone | + [...] | | 2015 | Encounter | at [facility] [address] | [address] | havea problem with | | | | Abbe Soto Mailcode: | [address] [facility], | my heart. | | | | [address] | [place] [address] | | | | | Health [facility], | [phone] | | | | | [facility] | | | | | | Floor [place], [place] | | | | | | [address] | | | | | | [phone] | | | +--------+ + + + [...]
--- OUTSIDE RECORDS SUMMARY | ~2019-10-10 | XMS | Encounter Summary ---
Demographics + + + | Address | [address] | | | [place] [address] | + + + | Home Phone [...] Team Providers + +------+ + | Care Sponge Buffer Name | Role | Phone | [...] + | 04/10/ | Telephone | [facility] | Nick Martinez, | Medication Prior | | 2017 | | PHYSIATRY [address] | PA-C [address] | Authorization | | | | [place], | [address] [place] | (Lidocaine Patch ) | | | | [place] [address] | [place] [address] | | | | | [phone] | [phone] | | | | | | | [...] [place] | | | | | | [address] | | | | | | | | +--------+---------+ + + + documented as of this encounter Visit Diagnoses Not on filedocumented in this encounter"
--- OUTSIDE RECORDS SUMMARY | ~2019-10-10 | XMS | Encounter Summary ---
Demographics + + + | Address | [address] | | | [place] [address] | + + + | Home Phone [...] Team Providers + +------+ + | Care Garbage Pick Up Worker Name | Role | Phone | + +------+ + | Romy De La Paz MD | PCP | | + +------+ + Encounter Details +--------+ + + + + | Date | Type | Department | Care Team | Description | +--------+ + + + + | 07/17/ | Prep for | [facility] | Maykel Hutchins MD | Chronic low back | | 2019 | Procedure | [facility] | [address] | pain with sciatica, | | | | ORTHOPEDIC SPINE | [facility], | sciatica laterality | | | | [address] [place] | [place] [address] | unspecified, | | | | [facility] [place] | [phone] | unspecified back | | | | [address] | | pain laterality | | | | [phone] | | (Primary Dx); Right | | [...] [place] | | | | | | [address] | | | | | | | [...]
--- OUTSIDE RECORDS SUMMARY | ~2019-10-10 | XMS | Clinical Summary ---
Demographics + + + | Address | [address] | | | [place] [address] | + + + | Home Phone [...] + | Author | [facility] [employer] (Historical as of | | | 06-16-19) | + + + | Organization | [facility] (Historical as of | | | [...] Providers + +------+ + | Care Mechanical Shop Laborer Name | Role | Phone | [...] +---------+------+------+-------+ | | Apply to affected | 02338 g | 3 | 04/30 | 04/30 [...] Overview: Added automatically from request for surgery [id number] | + + + + + | Radiculopathy of thoracolumbar region | 06/07/2019 | + + + + + | Overview: Added automatically from request for surgery [id number] | + + + + + | Radiculopathy, lumbosacral region | 06/07/2019 | + + + + + | Overview: Added automatically from request for surgery [id number] | + + + + + | Spondylosis without myelopathy or radiculopathy, cervical region | 03/20/2019 | + + + + + | Overview: Added automatically from request for surgery [id number] | + + + + + | Spondylosis without myelopathy or radiculopathy, lumbosacral | 03/20/2019 | | region | | + + + + + | Overview: Added automatically from request for surgery [id number] | + + + + + | Chronic bilateral low back pain without sciatica | 03/20/2019 | + + + + + | Overview: Added automatically from request for surgery [id number] | + + + + + | Strain of lumbar region | 02/25/2019 | + + + + + | Overview: Added automatically from request for surgery [id number] | + + + + + | Lumbar region somatic dysfunction | 02/25/2019 | + + + + + | Overview: Added automatically from request for surgery [id number] | + + + + + | Chronic low back pain with sciatica | 02/25/2019 | + + + + + | Overview: Added automatically from request for surgery [id number] | + + + + + | Intervertebral disc disorders with radiculopathy, lumbosacral | 02/25/2019 | | region | | + + + + + | Overview: Added automatically from request for surgery [id number] | + + + + + | Spinal stenosis of lumbosacral region | 02/25/2019 | + + + + + | Overview: Added automatically from request for surgery [id number] | + + + + + | [...] Overview: Added automatically from request for surgery [id number] | | Problem List 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
--- OUTSIDE RECORDS SUMMARY | ~2019-10-10 | XMS | Encounter Summary ---
Demographics + + + | Address | [address] | | | [place] [address] | + + + | Home Phone [...] Team Providers + +------+ + | Care Managing Partner [employer] Name | Role | Phone [...] + + | 09/04/ | Telephone | [facility] | Shay Dietz | Appointment | | 2012 | | PHYSIATRY [address] | T, [address] | | | | | [place], | [place], [place] | | | | | [place] [address] | [address] | | | | | [phone] | | | +--------+ + + + [...] [place] | | | | | | [address] | | | | | | | | +--------+---------+ + + + documented as of this encounter Visit Diagnoses Not on filedocumented in this encounter"
--- OUTSIDE RECORDS SUMMARY | ~2019-10-10 | XMS | Encounter Summary ---
Demographics + + + | Address | [address] | | | [place] [address] | + + + | Home Phone [...] Team Providers + +------+ + | Care Newspaper Press Operator Apprentice Name | Role | Phone | + +------+ + | Miquel Calhoun MD | PCP | | + +------+ + Encounter Details +--------+ + + + + | Date | Type | Department | Care Team | Description | +--------+ + + + + | 11/14/ | Hospital | [facility] | Earnest Acosta MD | Hypothyroid; History | | 2013 - | Encounter | MEDICAL [facility]ENTER | [address] [facility] | of oral aphthous | | | | CLINICAL DECISION | [address], | ulcers; Anemia, | | | | [address] | [place] [address] | unspecified; | | 2013 | | [place], [place] | [phone] | Aspiration pneumonia | | | | [phone] | | ([facility]); COPD | | | | [phone] | | (chronic obstructive | | | | | | pulmonary disease) | | | | | | ([facility]); Generalized | | | | | [...] 1140 Date of Service: 11/19/131920 Status: Signed Program Strategist: Fran Barnes MD (Physician) Related Notes: Original Note by Fran Barnes MD (Physician) filed at 11/20/13 1418 Patient ID: Ronald Gutierreztyfawthrop [id number] 68 y.o. 1945 Admit date: 11/14/2013 Discharge [...] - 99 mg/dL Final Testing performed at [facility], [address] [place] [address] BUN Date Value Range Status 11/19/2013 12 8 - 25 mg/dL Final Testing performed at [facility], [address] [place] [address] CREATININE Date Value Range Status 11/19/2013 0.80 0.50 - 1.00 mg/dL Final Testing performed at [facility], [address] [place] [address]137 BUN/CREAT Date Value Range Status 11/19/2013 15 Final Testing performed at [facility], [address] [place] [address]297 TOTAL PROTEIN Date Value Range Status 11/17/2013 5.2* 6.3 - 8.2 g/dL Final Testing performed at [address] [address] GLOBULIN Date Value Range Status 11/17/2013 2.1 1.3 - 4.9 g/dL Final Testing performed at [address] [address] TBIL Date Value Range Status 11/17/2013 0.6 0.1 - 1.5 mg/dL Final Testing performed at [address] [address] ALT Date Value Range Status 11/17/2013 21 10 - 65 U/L Final Testing performed at [facility], [address] [place] [address] AST Date Value Range Status 11/17/2013 19 10 - 45 U/L Final Testing performed at [address] [address] SODIUM Date Value Range Status 11/19/2013 133* 135 - 143 mmol/L Final Testing performed at [address] [address] POTASSIUM Date Value Range Status 11/19/2013 3.9 3.5 - 4.9 mmol/L Final Testing performed at [facility], [address] [place] [address] CHLORIDE Date Value Range Status 11/19/2013 101 99 - 109 mmol/L Final Testing performed at [facility], [address] [place] [address] CO2 Date Value Range Status 11/19/2013 24 23 - 32 mmol/L Final Testing performed at [facility], [address] [place] [address] ANION GAP AGAP Date Value Range Status 11/19/2013 12 5 - 20 mmol/L Final Testing performed at [facility], [address] [place] [address] X-ray Lumbar Spine Limited 2-3 Views 11/18/2013 [...] the emergency department, who was admitted to [facility] on November 14, 2013, when she was found to be unresponsive by EMS and thought to be secondary to Flexeril overdose and alcohol intoxication, and alcohol level was more than 300 , and patient was found to be hypotensive. Hence, she was intubated and brought to the [facility] from outside hospital and was started on dopamine and norepinephri ne and Tylenol level was checked, which was 44, for which she was put on acetylcysteine prot ocol and was transferred to medical floor on November 15, 2013, and Dr. Moore from psychia tric service was consulted after patient stabilized and she was taken to [facility] under Dr. Diana's care. 2. Chronic back pain, for which patient was discharged to [facility] on [place] in p.r.n. 3. Aphthous ulcers. [...] rash noted. No erythema. No pallor. Disposition: [facility] in patient psychiatric facility Patient Instructions: [...] file for this visit. Miquel Calhoun MD [address] [place] [address] In 1 week Signed: FRAN BARNES 11/19/2013 [...] 11/19/132053 Date of Service: 11/19/132029 Status: Signed Program Strategist: Ruby Chávez RN (Registered Nurse) Pt currently on psychiatric hold; Transport here to take pt to [facility]. Pt complains of yessica n; Given Ultram (See MAR) VSS; Afebrile; No SOB. Nurse to nurse given to [facility]. Pt dc'd by bebo. Ruby Chávez 11/19/2013 Fran Porter MD - 11/19/2013 3:24 PM PSTFormatting of this note might be different from the or iginal. Progress Notes by Farn Barnes MD at 11/19/131523 Author: Fran Barnes MD Service: Hospitalist Author Type: Physician Filed: 11/19/131535 Date of Service: 11/19/131523 Status: Addendum Program Strategist: Fran Barnes MD (Physician) Related Notes: Original Note by Fran Barnes MD (Physician) filed at 11/19/13 1535 [facility] Service: Hospitalist Progress Note Ronald Kowthrleighann 68 y.o. [id number] 306/306-2 female MIQUEL Suarez [facility] Day: LOS: 5 days Patient Summary: .A 68-year-old female with past medical history of depression with m ultiple suicide attempts in the past, history of COPD, which she attributes to paint inhalat ion, history of anxiety, restless leg syndrome, GERD, diabetes mellitus type 2, diet control led, hypothyroidism, who was admitted to [facility] on the November 14, when the patient was found to be unresponsive by EMS and thought to be secondary to Fle xeril overdose and alcohol intoxication as her alcohol level was more than 300. The patient was found to be hypertensive, hence she was intubated and brought to the [facility] where she was put on dopamine, norepinephrine, [...] by PCR (TAT 3 hr in house) [[id number]] Collected:11/19/13 0703 Specimen Information:Stool / Stool Updated:11/19/13806 Toxigenic C Difficile NEGATIVE 027 NAP1 BI 027 NAP1 BI PRESUMPTIVE NEGATIVE Magnesium [[id number]] Collected:11/19/13424 MAGNESIUM 2.2 mg/dL Updated:11/19/13806 Phosphorus [[id number]] Collected:11/19/13424 PHOSPHORUS 4.0 mg/dL Updated:11/19/13806 Basic metabolic panel [[id number]] (Abnormal) Collected:11/19/13424 Specimen Information:Blood Updated:11/19/13 0544 SODIUM 133 (L) mmol/L POTASSIUM 3.9 mmol/L CHLORIDE 101 mmol/L CO2 24 mmol/L ANION GAP AGAP 12 mmol/L GLUCOSE 108 (H) mg/dL BUN 12 mg/dL CREATININE 0.80 mg/dL BUN/CREAT 15 CALCIUM 9.2 mg/dL EGFR >60 mL/min/1.73m2 CBC w/auto diff (reflex to manual) [[id number]] (Abnormal) Collected:11/19/13 0425 Specimen Information:Blood Updated:11/19/13 0540 [...] K/uL MORPHOLOGY Fecal occult blood (in house) [[id number]] Collected:11/19/13 0146 Specimen Information:Stool / Stool Updated:11/19/13 0217 Fecal Occult Blood NEGATIVE Urine culture [[id number]] Collected:11/17/13 1013 Specimen Information:Urine / Urine, Catheter Updated:11/18/13 1710 Specimen Description CATHETERIZED URINE Specimen Description Result: Testing performed at [facility];[address] [place] [address] CULTURE NO GROWTH CULTURE Result: Testing performed at [facility], [address] [place] [address] REPORT STATUS 11/18/2013 FINAL Blood culture, 1 of 2 [[id number]] Collected:11/17/13 1042 Specimen Information:Blood / Blood Updated:11/18/13 1451 Specimen Description BLOOD Specimen Description Result: Testing performed at [facility];[address] [place] [address] SPECIAL REQUESTS Result: REPEAT TEST USING ALTERNATE ASSAYED CONTROL MATERIAL SPECIAL REQUESTS Result: Testing performed at [facility];[address] [place] [address] CULTURE NO GROWTH AT THIS TIME CULTURE Result: Testing performed at [facility], [address] [place] [address] REPORT STATUS PENDING Blood culture, 2 of 2 [[id number]] Collected:11/17/13 1050 Specimen Information:Blood / Blood Updated:11/18/13 1451 Specimen Description BLOOD Specimen Description Result: Testing performed at [facility];[address] [place] [address] SPECIAL REQUESTS PICC LINE SPECIAL REQUESTS Result: Testing performed at [facility];[address] [place] [address] CULTURE NO GROWTH AT THIS TIME CULTURE Result: Testing performed at [facility], [address] [place] [address] REPORT STATUS PENDING Sputum culture [[id number]] Collected:11/17/13 1153 Specimen Information:Sputum / Sputum Updated:11/18/13 1428 Specimen Description SPUTUM Specimen Description Result: Testing performed at [facility];[address] [place] [address] GRAM STAIN GREATER THAN 10 WBCS/LPF GRAM STAIN LESS THAN 10 SEC/LPF GRAM STAIN NO ORGANISMS SEEN GRAM STAIN Result: Testing performed at [facility], [address] [place] [address] CULTURE 1+ NORMAL UPPER RESPIRATORY CURTIS CULTURE Result: Testing performed at [facility], [address] [place] [address] REPORT STATUS PENDING Magnesium [[id number]] Collected:11/18/13 0600 Specimen Information:Blood Updated:11/18/13 1104 MAGNESIUM 2.1 mg/dL Phosphorus [[id number]] Collected:11/18/13 0600 Specimen Information:Blood Updated:11/18/13 1104 PHOSPHORUS 3.8 mg/dL Basic metabolic panel [[id number]] (Abnormal) Collected:11/18/13 0600 Specimen Information:Blood Updated:11/18/13 0716 SODIUM 135 mmol/L POTASSIUM 4.2 mmol/L CHLORIDE 104 mmol/L CO2 24 mmol/L ANION GAP AGAP 11 mmol/L GLUCOSE 110 (H) mg/dL BUN 11 mg/dL CREATININE 0.73 mg/dL BUN/CREAT 15 CALCIUM 9.0 mg/dL EGFR >60 mL/min/1.73m2 TSH [[id number]] Collected:11/18/13 0600 Specimen Information:Blood Updated:11/18/13 0713 TSH 4.28 uIU/mL CBC w/auto diff (reflex to manual) [[id number]] (Abnormal) Collected:11/18/13 0600 Specimen Information:Blood Updated:11/18/13 0647 [...] K/uL BASOPHILS ABS 0.0 K/uL Urine culture [[id number]] Collected:11/16/13 0951 Specimen Information:Urine / Urine, Clean Catch Updated:11/17/13 1618 Specimen Description CLEAN CATCH URINE Specimen Description Result: Testing performed at [address] [address] CULTURE NO GROWTH CULTURE Result: Testing performed at [facility], [address] [place] [address] REPORT STATUS 11/17/2013 FINAL Magnesium [[id number]] (Abnormal) Collected:11/16/13 0407 Specimen Information:Blood Updated:11/17/13 1141 MAGNESIUM 1.6 (L) mg/dL Phosphorus [[id number]] (Abnormal) Collected:11/16/13 0407 Specimen Information:Blood Updated:11/17/13 1141 PHOSPHORUS 1.7 (L) mg/dL Iron panel [[id number]] (Abnormal) Collected:11/17/1357 Specimen Information:Blood Updated:11/17/1318 IRON 31 ug/dL TIBC 155 (L) ug/dL IRON % SAT 20 % Vitamin B12 [[id number]] Collected:11/17/1357 Specimen Information:Blood Updated:11/17/1311 VITAMIN B12 417 pg/mL Folate [[id number]] Collected:11/17/1357 Specimen Information:Blood Updated:11/17/13710 FOLATE 17.7 ng/mL Ferritin [[id number]] Collected:11/17/13556 Specimen Information:Blood Updated:11/17/13 0711 FERRITIN 140 ng/mL Comprehensive metabolic panel [[id number]] (Abnormal) Collected:11/17/13 0557 Specimen Information:Blood Updated:11/17/13 0710 [...] mL/min/1.73m2 CBC w/auto diff (reflex to manual) [[id number]] (Abnormal) Collected:11/17/1357 Specimen Information:Blood Updated:11/17/13 0641 WBC [...] are visualized in the perihil ar lung valenzueal bilaterally, somewhat greater on the right than [...] Case Management by ANGELO Lujan at 11/19/13 8624 Author: ANGELO Lujan Service: (none) Author Type: Retail Business Development Manager Filed: 11/19/13 3091 Date of Service: 11/19/13 7614 Status: Signed Program Strategist: ANGELO Lujan (Retail Business Development Manager) CM contacted Crisis Response Unit to inform [facility] that pt is now medically clear for MH eval uation. A DMHP will see pt in the hospital today for eval. CM spoke with IPR MD - he would like to reevaluate pt tomorrow to determine appropriateness for IPR. ANGELO Lujan Deli Worker onver hiren Transaction, Provider Unknown - 11/19/2013 12:40 PM PST Progress Notes by Emi Donaldson PT at 11/19/13 1240 Author: Emi Donaldson PT Service: (none) Author Type: Physical Therapist Filed: 11/19/13 1313 Date of Service: 11/19/13 1240 Status: Signed Program Strategist: Emi Donaldson PT (Physical Therapist) 11/19/13 1240 [...] and I have a bladder appointment at [facility] I need to take care of [...] Date of Service: 11/19/13 1020 Status: Signed Program Strategist: Emi Donaldson PT (Physical Therapist) 11/19/13 1020 PT Last Visit PT Received On 11/19/13 Requires PT Follow Up Unavailable (getting bed bath, f/u later today for PT as schedule allows) onver hiren Transaction, Provider Unknown - 11/19/2013 4:29 AM PST Nurse Progress Note by Kala Peña RN at 11/19/13 4159 Author: Kala Peña RN Service: (none) Author Type: Registered Nurse Filed: 11/19/13 6533 Date of Service: 11/19/13 0429 Status: Signed Program Strategist: Kala Peña, RN (Registered Nurse) Pt slept [...] 11/18/131826 Date of Service: 11/18/131807 Status: Signed Program Strategist: Fran Barnes MD (Physician) [facility] Service: Hospitalist Progress Note Ronald Kowtjanene 68 y.o. [id number] 306/306-2 female [facility] Day: LOS: 4 days Patient Summary: .A 68-year-old female with past medical history of depression with m ultiple suicide attempts in the past, history of COPD, which she attributes to paint inhalat ion, history of anxiety, restless leg syndrome, GERD, diabetes mellitus type 2, diet control led, hypothyroidism, who was admitted to [facility] on the November 14, when the patient was found to be unresponsive by EMS and thought to be secondary to Fle xeril overdose and alcohol intoxication as her alcohol level was more than 300. The patient was found to be hypertensive, hence she was intubated and brought to the [facility] where she was put on dopamine, norepinephrine, [...] mood is better after she talked with Hobbing Press Operator ,denied any suicidal ideation /thoughts at this moment . Patient c/o generalized weakness and evaluated by PT who recommended SNF and patient [facility] to [facility] [place]. She denied any chest pain, cough,sob ,no [...] Procedure Component Value Units Date/Time Urine culture [[id number]] Collected:11/17/13 1013 Specimen Information:Urine / Urine, Catheter Updated:11/18/13 1710 Specimen Description CATHETERIZED URINE Specimen Description Result: Testing performed at [facility];[address];[place] [address] CULTURE NO GROWTH CULTURE Result: Testing performed at [facility], [address] [place] [address] REPORT STATUS 11/18/2013 FINAL Blood culture, 1 of 2 [[id number]] Collected:11/17/13 1042 Specimen Information:Blood / Blood Updated:11/18/13 1451 Specimen Description BLOOD Specimen Description Result: Testing performed at [facility] [address];[place] [address] SPECIAL REQUESTS Result: REPEAT TEST USING ALTERNATE ASSAYED CONTROL MATERIAL SPECIAL REQUESTS Result: Testing performed at [facility];[address] [place] [address];[place] [address] CULTURE NO GROWTH AT THIS TIME CULTURE Result: Testing performed at [facility], [address] [place] [address] REPORT STATUS PENDING Blood culture, 2 of 2 [[id number]] Collected:11/17/13 1050 Specimen Information:Blood / Blood Updated:11/18/13 1451 Specimen Description BLOOD Specimen Description Result: Testing performed at [facility] [address];[place] [address] SPECIAL REQUESTS PICC LINE SPECIAL REQUESTS Result: Testing performed at [facility];[address];[place] [address] CULTURE NO GROWTH AT THIS TIME CULTURE Result: Testing performed at [facility], [address] [place] [address] REPORT STATUS PENDING Sputum culture [[id number]] Collected:11/17/13 1153 Specimen Information:Sputum / Sputum Updated:11/18/13 1428 Specimen Description SPUTUM Specimen Description Result: Testing performed at [facility];[address] [place] [address] GRAM STAIN GREATER THAN 10 WBCS/LPF GRAM STAIN LESS THAN 10 SEC/LPF GRAM STAIN NO ORGANISMS SEEN GRAM STAIN Result: Testing performed at [facility], [address] [place] [address] CULTURE 1+ NORMAL UPPER RESPIRATORY CURTIS CULTURE Result: Testing performed at [facility], [address] [place] [address] REPORT STATUS PENDING Magnesium [[id number]] Collected:11/18/13 0600 Specimen Information:Blood Updated:11/18/13 1104 MAGNESIUM 2.1 mg/dL Phosphorus [[id number]] Collected:11/18/13 0600 Specimen Information:Blood Updated:11/18/13 1104 PHOSPHORUS 3.8 mg/dL Basic metabolic panel [[id number]] (Abnormal) Collected:11/18/13 0600 Specimen Information:Blood Updated:11/18/13 0716 SODIUM 135 mmol/L POTASSIUM 4.2 mmol/L CHLORIDE 104 mmol/L CO2 24 mmol/L ANION GAP AGAP 11 mmol/L GLUCOSE 110 (H) mg/dL BUN 11 mg/dL CREATININE 0.73 mg/dL BUN/CREAT 15 CALCIUM 9.0 mg/dL EGFR >60 mL/min/1.73m2 TSH [[id number]] Collected:11/18/13 06 Specimen Information:Blood Updated:11/18/13 0713 TSH 4.28 uIU/mL CBC w/auto diff (reflex to manual) [[id number]] (Abnormal) Collected:11/18/13 06 Specimen Information:Blood Updated:11/18/13 0647 [...] K/uL BASOPHILS ABS 0.0 K/uL Urine culture [[id number]] Collected:11/16/13 0951 Specimen Information:Urine / Urine, Clean Catch Updated:11/17/13 1618 Specimen Description CLEAN CATCH URINE Specimen Description Result: Testing performed at [facility];[address] [place] [address] CULTURE NO GROWTH CULTURE Result: Testing performed at [facility], [address] [place] [address] REPORT STATUS 11/17/2013 FINAL Magnesium [[id number]] (Abnormal) Collected:11/16/13 0407 Specimen Information:Blood Updated:11/17/13 1141 MAGNESIUM 1.6 (L) mg/dL Phosphorus [[id number]] (Abnormal) Collected:11/16/13 0407 Specimen Information:Blood Updated:11/17/13 1141 PHOSPHORUS 1.7 (L) mg/dL Iron panel [[id number]] (Abnormal) Collected:11/17/13556 Specimen Information:Blood Updated:11/17/1318 IRON 31 ug/dL TIBC 155 (L) ug/dL IRON % SAT 20 % Vitamin B12 [[id number]] Collected:11/17/13556 Specimen Information:Blood Updated:11/17/1311 VITAMIN B12 417 pg/mL Folate [[id number]] Collected:11/17/13556 Specimen Information:Blood Updated:11/17/13710 FOLATE 17.7 ng/mL Ferritin [[id number]] Collected:11/17/13556 Specimen Information:Blood Updated:11/17/1311 FERRITIN 140 ng/mL Comprehensive metabolic panel [[id number]] (Abnormal) Collected:11/17/13556 Specimen Information:Blood Updated:11/17/13709 SODIUM 134 [...] mL/min/1.73m2 CBC w/auto diff (reflex to manual) [[id number]] (Abnormal) Collected:11/17/13556 Specimen Information:Blood Updated:11/17/13640 WBC 7.8 [...] K/uL BASOPHILS ABS 0.0 K/uL MORPHOLOGY Potassium [[id number]] Collected:11/16/13 1112 Specimen Information:Blood Updated:11/16/13 1133 POTASSIUM 3.6 mmol/L Sputum culture [[id number]] Collected:11/14/13 2055 Specimen Information:Sputum / Tracheal Aspirate Updated:11/16/13 1018 Specimen Description TRACHEAL ASPIRATE Specimen Description Result: Testing performed at [facility];[address] [place] [address];[place] [address] GRAM STAIN GREATER THAN 10 WBCS/LPF GRAM STAIN LESS THAN 10 SEC/LPF GRAM STAIN 2+ GRAM POSITIVE COCCI GRAM STAIN 1+ GRAM POSITIVE RODS GRAM STAIN Result: Testing performed at [address] [address] CULTURE 2+ NORMAL UPPER RESPIRATORY CURTIS CULTURE Result: Testing performed at [facility], [address] [place] [address] REPORT STATUS 11/16/2013 FINAL Acetaminophen level [[id number]] (Abnormal) Collected:11/16/13 0755 Specimen Information:Blood Updated:11/16/13 0828 ACETAMINOPHEN 3.7 (L) ug/mL CBC w/auto diff (reflex to manual) [[id number]] (Abnormal) Collected:11/16/13 0407 Specimen Information:Blood Updated:11/16/13 0503 [...] BASOPHILS ABS 0.0 K/uL Basic metabolic panel [[id number]] (Abnormal) Collected:11/16/13406 Specimen Information:Blood Updated:11/16/13439 SODIUM 143 mmol/L POTASSIUM 3.1 (L) mmol/L CHLORIDE 109 mmol/L CO2 27 mmol/L ANION GAP AGAP 10 mmol/L GLUCOSE 78 mg/dL BUN 7 (L) mg/dL CREATININE 0.77 mg/dL BUN/CREAT 9 CALCIUM 7.8 (L) mg/dL EGFR >60 mL/min/1.73m2 Acetaminophen level [[id number]] (Abnormal) Collected:11/16/13406 Specimen Information:Blood Updated:11/16/13439 ACETAMINOPHEN 4.5 (L) ug/mL Acetaminophen level [[id number]] (Abnormal) Collected:11/16/136 Specimen Information:Blood Updated:11/16/138 ACETAMINOPHEN 5.2 [...] (none) Author Type: Registered Nurse Filed: 11/18/13 9951 Date of Service: 11/18/131805 Status: Signed Program Strategist: Donita Hunter RN (Registered Nurse) finish mill operator at bedside, pt seeming uplifted by conversation with travel director. PCC in and asked t hat this RN not remove cords, call-light cord and other items nearby pt as optical instrument inspector had con tacted her regarding this RN's discussion that per policy and patients statements indicating that she intended to cause her self harm this RN felt it would be best to move items that s he could use to harm herself away from her after she finished speaking with the travel director. Th is RN has increased rounding, line of site at RN station and optical instrument inspector continues to be in pl [place]. Pt overall mood continue to be melancholy and tearful, but has not threatened to do chapito f harm since her discussion with the travel director. Pt encouraged to express her emotions to staf f. Pt complains of diffuse pain, and desire to go to [place]. Pt medicated for pain per DEC. Wi ll continue to monitor closely.DONITA HUNTER RN onver hiren Transaction, Provider Unknown - 11/18/2013 2:59 PM PST Progress Notes by Franky Mcclain at 11/18/13 2536 Author: Franky Mcclain Service: (none) Author Type: Tiedown Operator Filed: 11/18/13 8640 Date of Service: 11/18/13 9010 Status: Signed Program Strategist: Franky Mcclain (Tiedown Operator) Received pt's request via RN for [...] but now belongs to the "12 step caodaism" and the [facility] prayer to cope. She states that [...] Date of Service: 11/18/13 1208 Status: Signed Program Strategist: Donita Hunter RN (Registered Nurse) Tiedown Operator called to be with patient,, optical instrument inspector at bedside. Pt indicating desire to [...] 0615 Date of Service: 11/18/13612 Status: Signed Program Strategist: Kala Peña RN (Registered Nurse) Pt slept [...] 11/17/135 Date of Service: 11/17/131823 Status: Signed Program Strategist: Dick De Santiago RN (Registered Nurse) Pt has been in and out of tearful expression most of the day. As her cognition came back, she informed me that she takes requip regularly for her Parkinsons. Dr aBrnes was notified a nd we started requip [...] Date of Service: 11/17/13 1341 Status: Signed Program Strategist: Sharif Romero (Tiedown Operator) I visited with Pt to assess [...] Date of Service: 11/17/13 113 Status: Signed Program Strategist: Emi Donaldson PT (Physical Therapist) 11/17/13 1133 [...] Notes by Emi Donaldson PT at 11/17/13 8909 Author: Emi Donaldson PT Service: (none) Author Type: Physical Therapist Filed: 11/17/13 7085 Date of Service: 11/17/13 1133 Status: Signed Program Strategist: Emi Donaldson PT (Physical Therapist) 11/17/13 1133 [...] Recommendations SNF Equipment Recommended (pending improvement, lift acupressure therapist c/s) Prior Function Level of [place] Modified independent with functional mobility;Modified independent wi [...] Date of Service: 11/17/13 1002 Status: Signed Program Strategist: Fran Barnes MD (Physician) Related Notes: Original Note by Fran Barnes MD (Physician) filed at 11/17/13 1016 [facility] Service: Hospitalist Progress Note Ronald Kowthrleighann 68 y.o. [phone] 306/306-2 female [facility] Day: LOS: 3 days Patient Summary: .A 68-year-old female with past medical history of depression with m ultiple suicide attempts in the past, history of COPD, which she attributes to paint inhalat ion, history of anxiety, restless leg syndrome, GERD, diabetes mellitus type 2, diet control led, hypothyroidism, who was admitted to [facility] on the November 14 014, when the patient was found to be unresponsive by EMS and thought to be secondary to Fle xeril overdose and alcohol intoxication as her alcohol level was more than 300. The patient was found to be hypertensive, hence she was intubated and brought to the [facility] where she was put on dopamine, norepinephrine, [...] commands . I received her records from [facility]. The patient's 2 sons live in [place], and she does not know the phone [...] Procedure Component Value Units Date/Time Iron panel [[id number]] (Abnormal) Collected:11/17/13556 Specimen Information:Blood Updated:11/17/13717 IRON 31 ug/dL TIBC 155 (L) ug/dL IRON % SAT 20 % Vitamin B12 [[id number]] Collected:11/17/13556 Specimen Information:Blood Updated:11/17/13710 VITAMIN B12 417 pg/mL Folate [[id number]] Collected:11/17/13556 Specimen Information:Blood Updated:11/17/13710 FOLATE 17.7 ng/mL Ferritin [[id number]] Collected:11/17/13556 Specimen Information:Blood Updated:11/17/13710 FERRITIN 140 ng/mL Comprehensive metabolic panel [[id number]] (Abnormal) Collected:11/17/13556 Specimen Information:Blood Updated:11/17/13709 SODIUM 134 [...] mL/min/1.73m2 CBC w/auto diff (reflex to manual) [[id number]] (Abnormal) Collected:11/17/13556 Specimen Information:Blood Updated:11/17/13 06 WBC [...] BASOPHILS ABS 0.0 K/uL MORPHOLOGY Urine culture [[id number]] Collected:11/16/13 0951 Specimen Information:Urine / Urine, Clean Catch Updated:11/16/13 1144 Potassium [[id number]] Collected:11/16/13 1112 Specimen Information:Blood Updated:11/16/13 1133 POTASSIUM 3.6 mmol/L Sputum culture [[id number]] Collected:11/14/13 2055 Specimen Information:Sputum / Tracheal Aspirate Updated:11/16/13 1018 Specimen Description TRACHEAL ASPIRATE Specimen Description Result: Testing performed at [facility];[address] [place] [address];[place] [address] GRAM STAIN GREATER THAN 10 WBCS/LPF GRAM STAIN LESS THAN 10 SEC/LPF GRAM STAIN 2+ GRAM POSITIVE COCCI GRAM STAIN 1+ GRAM POSITIVE RODS GRAM STAIN Result: Testing performed at [address] [address] CULTURE 2+ NORMAL UPPER RESPIRATORY CURTIS CULTURE Result: Testing performed at [facility], [address] [place] [address] REPORT STATUS 11/16/2013 FINAL Acetaminophen level [[id number]] (Abnormal) Collected:11/16/13 0755 Specimen Information:Blood Updated:11/16/13 0828 ACETAMINOPHEN 3.7 (L) ug/mL Magnesium [[id number]] Collected:11/16/13 0407 Specimen Information:Blood Updated:11/16/13 0800 Phosphorus [[id number]] Collected:11/16/13 0407 Specimen Information:Blood Updated:11/16/13 0800 CBC w/auto diff (reflex to manual) [[id number]] (Abnormal) Collected:11/16/13 0407 Specimen Information:Blood Updated:11/16/13 0503 [...] BASOPHILS ABS 0.0 K/uL Basic metabolic panel [[id number]] (Abnormal) Collected:11/16/13 0407 Specimen Information:Blood Updated:11/16/13 0440 SODIUM 143 mmol/L POTASSIUM 3.1 (L) mmol/L CHLORIDE 109 mmol/L CO2 27 mmol/L ANION GAP AGAP 10 mmol/L GLUCOSE 78 mg/dL BUN 7 (L) mg/dL CREATININE 0.77 mg/dL BUN/CREAT 9 CALCIUM 7.8 (L) mg/dL EGFR >60 mL/min/1.73m2 Acetaminophen level [[id number]] (Abnormal) Collected:11/16/13 0407 Specimen Information:Blood Updated:11/16/13 0440 ACETAMINOPHEN 4.5 (L) ug/mL Acetaminophen level [[id number]] (Abnormal) Collected:11/16/13 0036 Specimen Information:Blood Updated:11/16/13 0058 ACETAMINOPHEN 5.2 (L) ug/mL Troponin I [[id number]] (Abnormal) Collected:11/15/13 1602 Specimen Information:Blood Updated:11/15/13 1651 TROPONIN I 0.208 (H) ng/mL CK MB [[id number]] Collected:11/15/13 1602 MMB 3.4 ng/mL Updated:11/15/13 1651 CK-MB Index 2.4 CPK [[id number]] Collected:11/15/13 1602 Specimen Information:Blood Updated:11/15/13 1651 CPK 140 U/L Acetaminophen level [[id number]] Collected:11/15/13 1602 Specimen Information:Blood Updated:11/15/13 1651 ACETAMINOPHEN 10.0 ug/mL POCT glucose [[id number]] (Abnormal) Collected:11/14/13 1920 GLUCOSE,POC SCREEN 154 (H) mg/dL Updated:11/15/13 1317 Acetaminophen level [[id number]] (Abnormal) Collected:11/15/13 1132 Specimen Information:Blood Updated:11/15/13 1207 ACETAMINOPHEN 5.5 (L) ug/mL Basic metabolic panel [[id number]] (Abnormal) Collected:11/15/13 1132 Specimen Information:Blood Updated:11/15/13 1207 SODIUM 144 (H) mmol/L POTASSIUM 3.9 mmol/L CHLORIDE 114 (H) mmol/L CO2 20 (L) mmol/L ANION GAP AGAP 14 mmol/L GLUCOSE 153 (H) mg/dL BUN 8 mg/dL CREATININE 0.92 mg/dL BUN/CREAT 9 CALCIUM 7.4 (L) mg/dL EGFR >60 mL/min/1.73m2 CPK [[id number]] Collected:11/15/13850 Specimen Information:Blood Updated:11/15/1325 CPK 75 U/L Troponin I [[id number]] (Abnormal) Collected:11/15/13850 Specimen Information:Blood Updated:11/15/1325 TROPONIN I 0.325 (H) ng/mL CK MB [[id number]] Collected:11/15/13850 MMB 3.4 ng/mL Updated:11/15/13 0925 CK-MB Index 4.5 Acetaminophen level [[id number]] (Abnormal) Collected:11/15/13850 Specimen Information:Blood Updated:11/15/13 0925 ACETAMINOPHEN 6.3 (L) ug/mL POCT glucose [[id number]] Collected:11/15/13 0033 GLUCOSE,POC SCREEN 86 mg/dL Updated:11/15/13 0759 Osmolality [[id number]] (Abnormal) Collected:11/15/13 0408 Specimen Information:Blood Updated:11/15/13 0701 OSMOLALITY,SERUM 316 (H) mOsm/kg Lactic acid, plasma [[id number]] (Abnormal) Collected:11/15/13 0532 Specimen Information:Blood Updated:11/15/13 0617 LACTIC ACID 2.5 (H) mmol/L CBC w/auto diff (reflex to manual) [[id number]] (Abnormal) Collected:11/15/138 Specimen Information:Blood Updated:11/15/13 0530 WBC [...] BASOPHILS ABS 0.0 K/uL MORPHOLOGY Troponin I [[id number]] (Abnormal) Collected:11/15/13407 Specimen Information:Blood Updated:11/15/13522 TROPONIN I 0.647 (HH) ng/mL CK MB [[id number]] Collected:11/15/13407 MMB 3.3 ng/mL Updated:11/15/13522 CK-MB Index 5.9 CPK [[id number]] Collected:11/15/13407 Specimen Information:Blood Updated:11/15/13521 CPK 56 U/L Comprehensive metabolic panel [[id number]] (Abnormal) Collected:11/15/13407 Specimen Information:Blood Updated:11/15/13521 SODIUM 148 [...] 61 U/L EGFR >60 mL/min/1.73m2 Acetaminophen level [[id number]] (Abnormal) Collected:11/15/13407 Specimen Information:Blood Updated:11/15/13521 ACETAMINOPHEN 9.9 (L) ug/mL POC arterial CG4+ [[id number]] (Abnormal) Collected:11/14/13 2347 pH, Art 7.141 (LL) Updated:11/14/13 2351 POC PCO2 40 mmHg POC p02 283 (H) mmHg POC LACTATE 3.7 (H) mmol/L POC HCO3 14 (L) mmol/L POC TCO2 15 (L) mEq/L POC BASE DEFICIT 15 (H) mmol/L POC S02 100 (H) % POC FIO2 70 % POC COMMENTS Tidal Volume = 500 Lactic acid, plasma [[id number]] (Abnormal) Collected:11/14/132116 Specimen Information:Blood Updated:11/14/132155 LACTIC ACID 3.4 (H) mmol/L Basic metabolic panel [[id number]] (Abnormal) Collected:11/14/132112 Specimen Information:Blood Updated:11/14/132149 SODIUM 143 mmol/L POTASSIUM 3.0 (L) mmol/L CHLORIDE 114 (H) mmol/L CO2 16 (L) mmol/L ANION GAP AGAP 16 mmol/L GLUCOSE 187 (H) mg/dL BUN 10 mg/dL CREATININE 0.79 mg/dL BUN/CREAT 13 CALCIUM 6.5 (L) mg/dL EGFR >60 mL/min/1.73m2 Phosphorus [[id number]] Collected:11/14/132112 Specimen Information:Blood Updated:11/14/132149 PHOSPHORUS 2.4 mg/dL Magnesium [[id number]] Collected:11/14/132112 Specimen Information:Blood Updated:11/14/132149 MAGNESIUM 1.7 mg/dL Hepatic function panel [[id number]] (Abnormal) Collected:11/14/132112 TOTAL PROTEIN 5.6 (L) g/dL Updated:11/14/132149 Albumin 3.1 (L) g/dL TBIL 0.2 mg/dL BILI, DIRECT <0.1 mg/dL ALK PHOS 76 U/L AST 75 (H) U/L ALT 67 (H) U/L Acetaminophen level [[id number]] (Abnormal) Collected:11/14/132112 Specimen Information:Blood Updated:11/14/132149 ACETAMINOPHEN 44.4 (H) ug/mL Ionized calcium,to [facility] [[id number]] (Abnormal) Collected:11/14/132114 Specimen Information:Blood Updated:11/14/132145 CA++ 0.99 (L) mmol/L pH 7.179 (L) aPTT [[id number]] Collected:11/14/132112 Specimen Information:Blood Updated:11/14/132144 APTT 26 seconds Protime-INR [[id number]] Collected:11/14/132112 Specimen Information:Blood Updated:11/14/132144 INR 1.0 MRSA by PCR [[id number]] Collected:11/14/131929 Specimen Information:Nasopharyngeal / Nasopharyngeal Culture Updated:11/14/132130 SOURCE NARES(NOSE) RESULT NEGATIVE CBC w/auto diff (reflex to manual) [[id number]] (Abnormal) Collected:11/14/132112 Specimen Information:Blood Updated:11/14/132130 WBC 12.2 [...] ABS 0.0 K/uL Rapid drug screen, urine [[id number]] (Abnormal) Collected:11/14/131929 Specimen Information:Urine / Urine, Catheter Updated:11/14/132036 THC NEGATIVE PCP NEGATIVE COCAINE NEGATIVE METHAMPHETAMINES NEGATIVE OPIATES PRESUMPTIVE POSITIVE (A) AMPHETAMINE NEGATIVE BENZODIAZEPINE NEGATIVE TRICYCLIC ANTIDEPRESS PRESUMPTIVE POSITIVE (A) METHADONE NEGATIVE BARBITUATES NEGATIVE Urine microscopic only [[id number]] (Abnormal) Collected:11/14/131929 WBC 1-5 /hpf Updated:11/14/132035 RBC 0-2 /hpf EPITHELIAL NONE SEEN /lpf BACTERIA TRACE (A) Urinalysis (reflex to micro) [[id number]] (Abnormal) Collected:11/14/131929 Specimen Information:Urine / Urine, Catheter Updated:11/14/132035 COLOR UA OTHER CLARITY CLEAR Specific [place], UA 1.004 LEUKOCYTE ESTERASE TRACE (A) NITRITE [...] records from [facility]. FRAN BARNES MD 11/17/2013 onversion Transactio n, Provider Unknown - 11/17/2013 4:27 AM PST Nurse Progress Note by Jazzy Patel RN at 11/17/137 Author: Jazzy Patel RN Service: (none) Author Type: Registered Nurse Filed: 11/17/13 0429 Date of Service: 11/17/13426 Status: Signed Program Strategist: Jazzy Patel RN (Registered Nurse) Pt currently sleeping. 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 Unable to score CIWA a s [...] Notes by Fran Barnes MD at 11/16/13 9157 Author: Fran Barnes MD Service: Hospitalist Author Type: Physician Filed: 11/17/13 1746 Date of Service: 11/16/13 0670 Status: Signed Program Strategist: Fran Barnes MD (Physician) Related Notes: Original Note by Fran Barnes MD (Physician) filed at 11/16/13 3328 [facility] Service: Hospitalist Progress Note Ronald Castañeda 68 y.o. [phone] 323/323-1 female [facility] Day: LOS: 2 days Patient Summary: A 68-year-old female with past medical history of depression and his tory of suicidal attempts, COPD per patient but there is no documentation of it, who took an overdose of Flexeril and EMS found her in the bathtub with clothes on, and the patient was taken to [facility] ER where she was found to be unresponsive and hypertensive, an d was intubated and sent to [facility] for further workup and treatment. The [...] as tricyclic positive. She was put on CIUT protocol for alcohol withdrawal. Today when I [...] atient told that she lives alone in [place]. [facility]. She [...] Procedure Component Value Units Date/Time Urine culture [[id number]] Collected:11/16/13 0951 Specimen Information:Urine / Urine, Clean Catch Updated:11/16/13 1144 Potassium [[id number]] Collected:11/16/13 1112 Specimen Information:Blood Updated:11/16/13 1133 POTASSIUM 3.6 mmol/L Sputum culture [[id number]] Collected:11/14/13 2055 Specimen Information:Sputum / Tracheal Aspirate Updated:11/16/13 1018 Specimen Description TRACHEAL ASPIRATE Specimen Description Result: Testing performed at [facility];[address] [place] [address];[place] [address] GRAM STAIN GREATER THAN 10 WBCS/LPF GRAM STAIN LESS THAN 10 SEC/LPF GRAM STAIN 2+ GRAM POSITIVE COCCI GRAM STAIN 1+ GRAM POSITIVE RODS GRAM STAIN Result: Testing performed at [facility], [address] [place] [address] CULTURE 2+ NORMAL UPPER RESPIRATORY CURTIS CULTURE Result: Testing performed at [facility], [address] [place] [address] REPORT STATUS 11/16/2013 FINAL Acetaminophen level [[id number]] (Abnormal) Collected:11/16/13 0755 Specimen Information:Blood Updated:11/16/13 0828 ACETAMINOPHEN 3.7 (L) ug/mL Magnesium [[id number]] Collected:11/16/13406 Specimen Information:Blood Updated:11/16/13 0800 Phosphorus [[id number]] Collected:11/16/13406 Specimen Information:Blood Updated:11/16/13 0800 CBC w/auto diff (reflex to manual) [[id number]] (Abnormal) Collected:11/16/13406 Specimen Information:Blood Updated:11/16/13 0503 WBC [...] BASOPHILS ABS 0.0 K/uL Basic metabolic panel [[id number]] (Abnormal) Collected:11/16/13406 Specimen Information:Blood Updated:11/16/13 044 SODIUM 143 mmol/L POTASSIUM 3.1 (L) mmol/L CHLORIDE 109 mmol/L CO2 27 mmol/L ANION GAP AGAP 10 mmol/L GLUCOSE 78 mg/dL BUN 7 (L) mg/dL CREATININE 0.77 mg/dL BUN/CREAT 9 CALCIUM 7.8 (L) mg/dL EGFR >60 mL/min/1.73m2 Acetaminophen level [[id number]] (Abnormal) Collected:11/16/13406 Specimen Information:Blood Updated:11/16/13 0440 ACETAMINOPHEN 4.5 (L) ug/mL Acetaminophen level [[id number]] (Abnormal) Collected:11/16/13 0036 Specimen Information:Blood Updated:11/16/13 0058 ACETAMINOPHEN 5.2 (L) ug/mL Troponin I [[id number]] (Abnormal) Collected:11/15/13 1602 Specimen Information:Blood Updated:11/15/13 1651 TROPONIN I 0.208 (H) ng/mL CK MB [[id number]] Collected:11/15/13 1602 MMB 3.4 ng/mL Updated:11/15/13 165 CK-MB Index 2.4 CPK [[id number]] Collected:11/15/13 160 Specimen Information:Blood Updated:11/15/13 1651 CPK 140 U/L Acetaminophen level [[id number]] Collected:11/15/13 160 Specimen Information:Blood Updated:11/15/13 1651 ACETAMINOPHEN 10.0 ug/mL POCT glucose [[id number]] (Abnormal) Collected:11/14/13 1920 GLUCOSE,POC SCREEN 154 (H) mg/dL Updated:11/15/13 1317 Acetaminophen level [[id number]] (Abnormal) Collected:11/15/13 1132 Specimen Information:Blood Updated:11/15/13 1207 ACETAMINOPHEN 5.5 (L) ug/mL Basic metabolic panel [[id number]] (Abnormal) Collected:11/15/13 1132 Specimen Information:Blood Updated:11/15/13 1207 SODIUM 144 (H) mmol/L POTASSIUM 3.9 mmol/L CHLORIDE 114 (H) mmol/L CO2 20 (L) mmol/L ANION GAP AGAP 14 mmol/L GLUCOSE 153 (H) mg/dL BUN 8 mg/dL CREATININE 0.92 mg/dL BUN/CREAT 9 CALCIUM 7.4 (L) mg/dL EGFR >60 mL/min/1.73m2 CPK [[id number]] Collected:11/15/1351 Specimen Information:Blood Updated:11/15/13 0925 CPK 75 U/L Troponin I [[id number]] (Abnormal) Collected:11/15/13850 Specimen Information:Blood Updated:11/15/13 0925 TROPONIN I 0.325 (H) ng/mL CK MB [[id number]] Collected:11/15/13850 MMB 3.4 ng/mL Updated:11/15/13 0925 CK-MB Index 4.5 Acetaminophen level [[id number]] (Abnormal) Collected:11/15/13 0851 Specimen Information:Blood Updated:11/15/13 0925 ACETAMINOPHEN 6.3 (L) ug/mL POCT glucose [[id number]] Collected:11/15/13 0033 GLUCOSE,POC SCREEN 86 mg/dL Updated:11/15/13 0759 Osmolality [[id number]] (Abnormal) Collected:11/15/13407 Specimen Information:Blood Updated:11/15/13 0701 OSMOLALITY,SERUM 316 (H) mOsm/kg Lactic acid, plasma [[id number]] (Abnormal) Collected:11/15/13 0532 Specimen Information:Blood Updated:11/15/13 0617 LACTIC ACID 2.5 (H) mmol/L CBC w/auto diff (reflex to manual) [[id number]] (Abnormal) Collected:11/15/13407 Specimen Information:Blood Updated:11/15/13529 WBC 5.5 [...] BASOPHILS ABS 0.0 K/uL MORPHOLOGY Troponin I [[id number]] (Abnormal) Collected:11/15/13407 Specimen Information:Blood Updated:11/15/13522 TROPONIN I 0.647 (HH) ng/mL CK MB [[id number]] Collected:11/15/13407 MMB 3.3 ng/mL Updated:11/15/13522 CK-MB Index 5.9 CPK [[id number]] Collected:11/15/13407 Specimen Information:Blood Updated:11/15/13521 CPK 56 U/L Comprehensive metabolic panel [[id number]] (Abnormal) Collected:11/15/13407 Specimen Information:Blood Updated:11/15/13521 SODIUM 148 [...] 61 U/L EGFR >60 mL/min/1.73m2 Acetaminophen level [[id number]] (Abnormal) Collected:11/15/13 0408 Specimen Information:Blood Updated:11/15/13 0522 ACETAMINOPHEN 9.9 (L) ug/mL POC arterial CG4+ [[id number]] (Abnormal) Collected:11/14/132346 pH, Art 7.141 (LL) Updated:11/14/13 2351 POC PCO2 40 mmHg POC p02 283 (H) mmHg POC LACTATE 3.7 (H) mmol/L POC HCO3 14 (L) mmol/L POC TCO2 15 (L) mEq/L POC BASE DEFICIT 15 (H) mmol/L POC S02 100 (H) % POC FIO2 70 % POC COMMENTS Tidal Volume = 500 Lactic acid, plasma [[id number]] (Abnormal) Collected:11/14/132116 Specimen Information:Blood Updated:11/14/132155 LACTIC ACID 3.4 (H) mmol/L Basic metabolic panel [[id number]] (Abnormal) Collected:11/14/132112 Specimen Information:Blood Updated:11/14/132149 SODIUM 143 mmol/L POTASSIUM 3.0 (L) mmol/L CHLORIDE 114 (H) mmol/L CO2 16 (L) mmol/L ANION GAP AGAP 16 mmol/L GLUCOSE 187 (H) mg/dL BUN 10 mg/dL CREATININE 0.79 mg/dL BUN/CREAT 13 CALCIUM 6.5 (L) mg/dL EGFR >60 mL/min/1.73m2 Phosphorus [[id number]] Collected:11/14/132112 Specimen Information:Blood Updated:11/14/132149 PHOSPHORUS 2.4 mg/dL Magnesium [[id number]] Collected:11/14/132112 Specimen Information:Blood Updated:11/14/132149 MAGNESIUM 1.7 mg/dL Hepatic function panel [[id number]] (Abnormal) Collected:11/14/132112 TOTAL PROTEIN 5.6 (L) g/dL Updated:11/14/132149 Albumin 3.1 (L) g/dL TBIL 0.2 mg/dL BILI, DIRECT <0.1 mg/dL ALK PHOS 76 U/L AST 75 (H) U/L ALT 67 (H) U/L Acetaminophen level [[id number]] (Abnormal) Collected:11/14/132112 Specimen Information:Blood Updated:11/14/132149 ACETAMINOPHEN 44.4 (H) ug/mL Ionized calcium,to [facility] [[id number]] (Abnormal) Collected:11/14/132114 Specimen Information:Blood Updated:11/14/132145 CA++ 0.99 (L) mmol/L pH 7.179 (L) aPTT [[id number]] Collected:11/14/132112 Specimen Information:Blood Updated:11/14/132144 APTT 26 seconds Protime-INR [[id number]] Collected:11/14/132112 Specimen Information:Blood Updated:11/14/132144 INR 1.0 MRSA by PCR [[id number]] Collected:11/14/131929 Specimen Information:Nasopharyngeal / Nasopharyngeal Culture Updated:11/14/132130 SOURCE NARES(NOSE) RESULT NEGATIVE CBC w/auto diff (reflex to manual) [[id number]] (Abnormal) Collected:11/14/132112 Specimen Information:Blood Updated:11/14/132130 WBC 12.2 [...] ABS 0.0 K/uL Rapid drug screen, urine [[id number]] (Abnormal) Collected:11/14/131929 Specimen Information:Urine / Urine, Catheter Updated:11/14/132036 THC NEGATIVE PCP NEGATIVE COCAINE NEGATIVE METHAMPHETAMINES NEGATIVE OPIATES PRESUMPTIVE POSITIVE (A) AMPHETAMINE NEGATIVE BENZODIAZEPINE NEGATIVE TRICYCLIC ANTIDEPRESS PRESUMPTIVE POSITIVE (A) METHADONE NEGATIVE BARBITUATES NEGATIVE Urine microscopic only [[id number]] (Abnormal) Collected:11/14/131929 WBC 1-5 /hpf Updated:11/14/132035 RBC 0-2 /hpf EPITHELIAL NONE SEEN /lpf BACTERIA TRACE (A) Urinalysis (reflex to micro) [[id number]] (Abnormal) Collected:11/14/131929 Specimen Information:Urine / Urine, Catheter Updated:11/14/132035 COLOR UA OTHER CLARITY CLEAR Specific [place], UA 1.004 LEUKOCYTE ESTERASE TRACE (A) NITRITE [...] 2:22 PM PST Progress Notes by Kassidy Peerz RN at 11/16/13 142 Author: Kassidy Perez RN Service: (none) Author Type: Registered Nurse Filed: 11/16/13 1423 Date of Service: 11/16/131421 Status: Signed Program Strategist: Kassidy Perez RN (Registered Nurse) Pt beginning [...] Date of Service: 11/16/13 1140 Status: Signed Program Strategist: Jana Taylor Pt given to Kassidy MORAN on 3OP. Pt transferred via wheel chair. onver hiren Transaction, Provider Unknown - 11/16/2013 1:17 AM PST Nurse Progress Note by Sheryl Tomas RN at 11/16/13116 Author: Sheryl Tomas RN Service: (none) Author Type: Registered Nurse Filed: 11/16/13116 Date of Service: 11/16/13116 Status: Signed Program Strategist: Sheryl Tomas RN (Registered Nurse) Stopped Acetylcysteine drip per order. Sheryl Tomas RN iotr hesham Jana Osbornanne - 11/15/2013 4:28 PM PST Progress Notes by Jana Norris DO at 11/15/131627 Author: Jana Norris DO Service: (none) Author Type: Diet Supervisor Filed: 11/15/131628 Date of Service: 11/15/131627 Status: Signed Program Strategist: Jana Norris DO (Diet Supervisor) Pt was extubated this am and has [...] 11/15/131408 Date of Service: 11/15/131407 Status: Signed Program Strategist: Kourtney Aldana RN (Registered Nurse) Discussed psych consult with Dr. Norris. Received verbal order for psych consult. Notifi wilbert Flores RN, she will arrange for psych consult. When pt is stable for discharge, will need to call [facility] : [phone] to evalulate before disch arging pt. KOURTNEY ALDANA 11/15/2013 2:09 PM onver hiren Transaction, Provider Unknown - 11/15/2013 9:32 AM PST Progress Notes by Nick Jeffries RN at 11/15/13931 Author: Nick Jeffries RN Service: Wound/Ostomy Care Author Type: Registered Nurse Filed: 11/15/1334 Date of Service: 11/15/13931 Status: Signed Program Strategist: Nick Jeffries RN (Registered Nurse) Pt seen [...] 0557 Date of Service: 11/15/1357 Status: Signed Program Strategist: Mat Perez RPH (Pharmacist) Clinical Pharmacy Note: Renal Monitoring Ronald Koonel 68 y.o. female Ht Readings from Last 1 Encounters: No data found for Ht Wt Readings from Last 1 Encounters: 11/15/13 69.1 kg (152 lb 5.4 oz) CREATININE Date Value Range Status 11/15/2013 0.69 0.50 - 1.00 mg/dL Final Testing performed at [facility];[address] [place] [address];[place] [address] Creatinine clearance cannot be calculated - Unknown [...] 11/15/131951 Date of Service: 11/14/131856 Status: Signed Program Strategist: Roseline Sanon RN (Registered Nurse) Pt arrived [facility] from [facility]. No report called from [place] a nd minimal report received Via [facility]. Pt transferred to bed, ventilator applied to exist ing ETT via RT. Obvious smell of ETOH emitting from PT. No cough, gag or corneals noted. leather goods maker RN Gayle in room to assume care [...] DEWEY | | | | | | [id number] | | | | | | | [...] EXTERNAL LAB | | performed at [facility];[address] [place] [address];[place] [address] 027 NAP1 BI | | | 027 NAP1 BI PRESUMPTIVE NEGATIVE | | | Detection of 027 NAP1 BI strains of C. difficile is presumptive and | | | for epidemiological purposes and not intended to guide or monitor | | | treatment for C. difficile infections. Testing performed at [facility];[address] | | [facility];[place] [address] | | + + + + +---------+ [...] | | | | | [place] [address] | | | | + + + + + + | RED CELL | 3.85Comment: Testing | 3.70 - 5.10 | EXTERNAL | | | COUNT | performed at [facility], [address] | M/uL | LAB | | | | [address], | | | | | | [place] [address] | | | | + + + + + + | Hgb | 10.7 (L)Comment: Testing | 11.3 - 15.5 | EXTERNAL | | | | performed at [facility], [address] | g/dL | LAB | | | | [address], | | | | | | [place] [address] | | | | + + + + + + | Hematocrit, | 32.8 (L)Comment: Testing | 34.0 - 46.0 % | EXTERNAL | | | POC | performed at [facility], [address] | | LAB | | | | [address], | | | | | | [place] [address] | | | | + + + + + + | MCV | 85.2Comment: Testing | 80.0 - 100.0 fl | EXTERNAL | | | | performed at [facility], [address] | | LAB | | | | [address], | | | | | | [place] [address] | | | | + + + + + + | MCH | 27.8Comment: Testing | 27.0 - 34.0 pg | EXTERNAL | | | | performed at [facility], [address] | | LAB | | | | [address], | | | | | | [place] [address] | | | | + + + + + + | MCHC | 32.6Comment: Testing | 32.0 - 35.5 | EXTERNAL | | | | performed at [facility], [address] | g/dL | LAB | | | | [address], | | | | | | [place] [address] | | | | + + + + + + | RDW-CV | 38.1Comment: Testing | 37 - 53 fl | EXTERNAL | | | | performed at [facility], [address] | | LAB | | | | [address], | | | | | | [place] [address] | | | | + + + + + + | Platelet | 222Comment: Testing | 150 - 400 K/uL | EXTERNAL | | | Count | performed at [facility], [address] | | LAB | | | Plasma | [address], | | | | | | [place] [address] | | | | + + + + + + | MPV | 7.8Comment: Testing | fl | EXTERNAL | | | | performed at [facility], [address] | | LAB | | | | [address], | | | | | | [place] [address] | | | | + + + + + + | Differentia | AUTOMATEDComment: | | EXTERNAL | | | l Type | Testing performed at | | LAB | | | | [facility], [address] | | | | | | [place], [place], [place] | | | | | | [address] | | | | + + + [...] | | | | performed at [facility], [address] | | LAB | | | | [address], | | | | | | [place] [address] | | | | + + + [...] | | | | performed at [facility], [address] | | LAB | | | | [address], | | | | | | [place] [address] | | | | + + + [...] | | | | | [place] [address] | | | | + + + + + + | K | 3.9Comment: Testing | 3.5 - 4.9 | EXTERNAL | | | | performed at [facility], [address] | mmol/L | LAB | | | | [address], | | | | | | [place] [address] | | | | + + + + + + | Cl | 101Comment: Testing | 99 - 109 mmol/L | EXTERNAL | | | | performed at [facility], [address] | | LAB | | | | [address], | | | | | | [place] [address] | | | | + + + + + + | CO2 | 24Comment: Testing | 23 - 32 mmol/L | EXTERNAL | | | | performed at [facility], [address] | | LAB | | | | [address], | | | | | | [place] [address] | | | | + + + + + + | Anion Gap | 12Comment: Testing | 5 - 20 mmol/L | EXTERNAL | | | | performed at [facility], [address] | | LAB | | | | [address], | | | | | | [place] [address] | | | | + + + + + + | Glucose, | 108 (H)Comment: Testing | 65 - 99 mg/dL | EXTERNAL | | | Fasting | performed at [facility], [address] | | LAB | | | | [address], | | | | | | [place] [address] | | | | + + + + + + | BUN | 12Comment: Testing | 8 - 25 mg/dL | EXTERNAL | | | | performed at [facility], [address] | | LAB | | | | [address], | | | | | | [place] [address] | | | | + + + + + + | Creatinine | 0.80Comment: Testing | 0.50 - 1.00 | EXTERNAL | | | | performed at [facility], [address] | mg/dL | LAB | | | | [address], | | | | | | [place] [address] | | | | + + + + + + | BUN/Creatin | 15Comment: Testing | | EXTERNAL | | | ine Ratio | performed at [facility], [address] | | LAB | | | | [address], | | | | | | [place] [address] | | | | + + + + + + | Calcium | 9.2Comment: Testing | 8.5 - 10.2 | EXTERNAL | | | | performed at [facility], [address] | mg/dL | LAB | | | | [address], | | | | | | [place] [address] | | | | + + + [...] | | | | | [place] [address] | | | | + + + [...] EXTERNAL LAB | | performed at [facility];[address] [facility];[place] [address] | | + + + + +---------+ [...] | | | | | [place] [address] | | | | + + + + + + | RED CELL | 3.77Comment: Testing | 3.70 - 5.10 | EXTERNAL | | | COUNT | performed at [facility], [address] | M/uL | LAB | | | | [address], | | | | | | [place] [address] | | | | + + + + + + | Hgb | 10.8 (L)Comment: Testing | 11.3 - 15.5 | EXTERNAL | | | | performed at [facility], [address] | g/dL | LAB | | | | [address], | | | | | | [place] [address] | | | | + + + + + + | Hematocrit, | 31.9 (L)Comment: Testing | 34.0 - 46.0 % | EXTERNAL | | | POC | performed at [facility], [address] | | LAB | | | | [address], | | | | | | [place] [address] | | | | + + + + + + | MCV | 84.8Comment: Testing | 80.0 - 100.0 fl | EXTERNAL | | | | performed at [facility], [address] | | LAB | | | | [address], | | | | | | [place] [address] | | | | + + + + + + | MCH | 28.8Comment: Testing | 27.0 - 34.0 pg | EXTERNAL | | | | performed at [facility], [address] | | LAB | | | | [address], | | | | | | [place] [address] | | | | + + + + + + | MCHC | 33.9Comment: Testing | 32.0 - 35.5 | EXTERNAL | | | | performed at [facility], [address] | g/dL | LAB | | | | [address], | | | | | | [place] [address] | | | | + + + + + + | RDW-CV | 37.6Comment: Testing | 37 - 53 fl | EXTERNAL | | | | performed at [facility], [address] | | LAB | | | | [address], | | | | | | [place] [address] | | | | + + + + + + | Platelet | 183Comment: Testing | 150 - 400 K/uL | EXTERNAL | | | Count | performed at [facility], [address] | | LAB | | | Plasma | [address], | | | | | | [place] [address] | | | | + + + + + + | MPV | 7.9Comment: Testing | fl | EXTERNAL | | | | performed at [facility], [address] | | LAB | | | | [address], | | | | | | [place] [address] | | | | + + + + + + | Differentia | AUTOMATEDComment: | | EXTERNAL | | | l Type | Testing performed at | | LAB | | | | [facility], [address] | | | | | | [place] | | | | | | [address] | | | | + + + [...] | | | | performed at [facility], [address] | uIU/mL | LAB | | | | [address], | | | | | | [place] [address] | | | | + + + [...] | | | | performed at [facility], [address] | | LAB | | | | [address] [facility], | | | | | | [place] [address] | | | | + + + [...] | | | | performed at [facility], [address] | | LAB | | | | [address], | | | | | | [place] [address] | | | | + + + [...] | | | | | [place] [address] | | | | + + + + + + | K | 4.2Comment: Testing | 3.5 - 4.9 | EXTERNAL | | | | performed at [facility], [address] | mmol/L | LAB | | | | [address], | | | | | | [place] [address] | | | | + + + + + + | Cl | 104Comment: Testing | 99 - 109 mmol/L | EXTERNAL | | | | performed at [facility], [address] | | LAB | | | | [address], | | | | | | [place] [address] | | | | + + + + + + | CO2 | 24Comment: Testing | 23 - 32 mmol/L | EXTERNAL | | | | performed at [facility], [address] | | LAB | | | | [address], | | | | | | [place] [address] | | | | + + + + + + | Anion Gap | 11Comment: Testing | 5 - 20 mmol/L | EXTERNAL | | | | performed at [facility], [address] | | LAB | | | | [address], | | | | | | [place] [address] | | | | + + + + + + | Glucose, | 110 (H)Comment: Testing | 65 - 99 mg/dL | EXTERNAL | | | Fasting | performed at [facility], [address] | | LAB | | | | [address], | | | | | | [place] [address] | | | | + + + + + + | BUN | 11Comment: Testing | 8 - 25 mg/dL | EXTERNAL | | | | performed at [facility], [address] | | LAB | | | | [address], | | | | | | [place] [address] | | | | + + + + + + | Creatinine | 0.73Comment: Testing | 0.50 - 1.00 | EXTERNAL | | | | performed at [facility], [address] | mg/dL | LAB | | | | [address], | | | | | | [place] [address] | | | | + + + + + + | BUN/Creatin | 15Comment: Testing | | EXTERNAL | | | ine Ratio | performed at [facility], [address] | | LAB | | | | [address], | | | | | | [place] [address] | | | | + + + + + + | Calcium | 9.0Comment: Testing | 8.5 - 10.2 | EXTERNAL | | | | performed at [facility], [address] | mg/dL | LAB | | | | [address], | | | | | | [place] [address] | | | | + + + [...] | | | | | at [facility], [address] | | | | | | [address], | | | | | | [place] [address] | | | | + + + [...] LAB | | Testing performed at [facility];[address] | | | [facility];[place] [address] GRAM STAIN | | | GREATER THAN 10 WBCS/LPF | | | LESS THAN 10 SEC/LPF | | | NO ORGANISMS SEEN | | | Testing performed at [facility], [facility] [address], | | | [place] [address] CULTURE | | | 3+ ZITA GLABRATAAbnormal | | | 2+ ZITA DUBLINIENSISAbnormal | | | 2+ KLEBSIELLA OXYTOCAAbnormal | | | 1+ NORMAL UPPER RESPIRATORY | | | CURTIS Testing | | | performed at [facility], [facility] [place], [place] [address] | | | REPORT STATUS 11/23/2013 FINAL [...] LAB | | Testing performed at [facility];[address] | | | [facility];[place] [address] SPECIAL REQUESTS | | | PICC LINE | | | Testing performed at [facility];[address] [place] [address] CULTURE | | | NO GROWTH 6 DAYS | | | Testing performed at [facility], [address] | | | [place] [address] REPORT STATUS | | | 11/23/2013 FINAL [...] LAB | | Testing performed at [facility];[address] | | | [address];[place] [address] SPECIAL REQUESTS | | | REPEAT TEST USING ALTERNATE ASSAYED CONTROL MATERIAL | | | Testing performed at [facility];[address] | | | [address];[place] [address] CULTURE | | | NO GROWTH 6 DAYS | | | Testing performed at [facility], [address] [place], | | | [place] [address] REPORT STATUS 11/23/2013 | | | FINAL [...] Testing performed at | | | [facility];[address] [facility];[place] [address] CULTURE | | | NO GROWTH | | | Testing performed at [facility], [address] [facility], | | | [place] [address] REPORT STATUS | | | 11/18/2013 FINAL [...] | | | | | [place] [address] | | | | + + + + + + | TIBC | 155 (L)Comment: Testing | 260 - 490 ug/dL | EXTERNAL | | | | performed at [facility], [address] | | LAB | | | | [address], | | | | | | [place] [address] | | | | + + + + + + | Iron | 20Comment: Testing | 15 - 50 % | EXTERNAL | | | Saturation | performed at [facility], [address] | | LAB | | | | [address], | | | | | | [place] [address] | | | | + + + [...] | | | | performed at [facility], [address] | | LAB | | | | [address], | | | | | | [place] [address] | | | | + + + + + + | RED CELL | 3.51 (L)Comment: Testing | 3.70 - 5.10 | EXTERNAL | | | COUNT | performed at [facility], [address] | M/uL | LAB | | | | [address], | | | | | | [place] [address] | | | | + + + + + + | Hgb | 9.6 (L)Comment: Testing | 11.3 - 15.5 | EXTERNAL | | | | performed at [facility], [address] | g/dL | LAB | | | | [address], | | | | | | [place] [address] | | | | + + + + + + | Hematocrit, | 29.5 (L)Comment: Testing | 34.0 - 46.0 % | EXTERNAL | | | POC | performed at [facility], [address] | | LAB | | | | [address], | | | | | | [place] [address] | | | | + + + + + + | MCV | 84.3Comment: Testing | 80.0 - 100.0 fl | EXTERNAL | | | | performed at [facility], [address] | | LAB | | | | [address], | | | | | | [place] [address] | | | | + + + [...] | | | | | [place] [address] | | | | + + + + + + | RDW-CV | 36.3 (L)Comment: Testing | 37 - 53 fl | EXTERNAL | | | | performed at [facility], [address] | | LAB | | | | [address], | | | | | | [place] [address] | | | | + + + + + + | Platelet | 151Comment: Testing | 150 - 400 K/uL | EXTERNAL | | | Count | performed at [facility], [address] | | LAB | | | Plasma | [address], | | | | | | [place] [address] | | | | + + + + + + | MPV | 7.9Comment: Testing | fl | EXTERNAL | | | | performed at [facility], [address] | | LAB | | | | [address], | | | | | | [place] [address] | | | | + + + + + + | Differentia | AUTOMATEDComment: | | EXTERNAL | | | l Type | Testing performed at | | LAB | | | | [facility], [address] | | | | | | [place] | | | | | | [address] | | | | + + + [...] | | | | performed at [facility], [address] | | LAB | | | | [address], | | | | | | [place] [address] | | | | + + + [...] | | External | performed at [facility], [address] | | LAB | | | | [address], | | | | | | [place] [address] | | | | + + + [...] | | | | | [place] [address] | | | | + + + [...] | | | | | [place] [address] | | | | + + + + + + | K | 3.8Comment: Testing | 3.5 - 4.9 | EXTERNAL | | | | performed at [facility], [address] | mmol/L | LAB | | | | [address], | | | | | | [place] [address] | | | | + + + + + + | Cl | 103Comment: Testing | 99 - 109 mmol/L | EXTERNAL | | | | performed at [facility], [address] | | LAB | | | | [address], | | | | | | [place] [address] | | | | + + + + + + | CO2 | 28Comment: Testing | 23 - 32 mmol/L | EXTERNAL | | | | performed at [facility], [address] | | LAB | | | | [address], | | | | | | [place] [address] | | | | + + + + + + | Anion Gap | 7Comment: Testing | 5 - 20 mmol/L | EXTERNAL | | | | performed at [facility], [address] | | LAB | | | | [address], | | | | | | [place] [address] | | | | + + + + + + | Glucose, | 131 (H)Comment: Testing | 65 - 99 mg/dL | EXTERNAL | | | Fasting | performed at [facility], [address] | | LAB | | | | [address], | | | | | | [place] [address] | | | | + + + + + + | BUN | 7 (L)Comment: Testing | 8 - 25 mg/dL | EXTERNAL | | | | performed at [facility], [address] | | LAB | | | | [address], | | | | | | [place] [address] | | | | + + + + + + | Creatinine | 0.61Comment: Testing | 0.50 - 1.00 | EXTERNAL | | | | performed at [facility], [address] | mg/dL | LAB | | | | [address], | | | | | | [place] [address] | | | | + + + + + + | BUN/Creatin | 11Comment: Testing | | EXTERNAL | | | ine Ratio | performed at [facility], [address] | | LAB | | | | [address], | | | | | | [place] [address] | | | | + + + + + + | Calcium | 8.5Comment: Testing | 8.5 - 10.2 | EXTERNAL | | | | performed at [facility], [address] | mg/dL | LAB | | | | [address], | | | | | | [place] [address] | | | | + + + + + + | Protein, | 5.2 (L)Comment: Testing | 6.3 - 8.2 g/dL | EXTERNAL | | | Total | performed at [facility], [address] | | LAB | | | | [address], | | | | | | [place] [address] | | | | + + + + + + | Albumin | 3.1 (L)Comment: Testing | 3.3 - 4.8 g/dL | EXTERNAL | | | | performed at [facility], [address] | | LAB | | | | [address], | | | | | | [place] [address] | | | | + + + + + + | Globulin | 2.1Comment: Testing | 1.3 - 4.9 g/dL | EXTERNAL | | | | performed at [facility], [address] | | LAB | | | | [address], | | | | | | [place] [address] | | | | + + + + + + | A/G Ratio | 1.5Comment: Testing | 1.0 - 2.4 | EXTERNAL | | | | performed at [facility], [address] | | LAB | | | | [address], | | | | | | [place] [address] | | | | + + + + + + | Bilirubin | 0.6Comment: Testing | 0.1 - 1.5 mg/dL | EXTERNAL | | | Total | performed at [facility], [address] | | LAB | | | | [address], | | | | | | [place] [address] | | | | + + + + + + | ALP, | 48Comment: Testing | 35 - 115 U/L | EXTERNAL | | | External | performed at [facility], [address] | | LAB | | | | [address], | | | | | | [place] [address] | | | | + + + + + + | AST | 19Comment: Testing | 10 - 45 U/L | EXTERNAL | | | | performed at [facility], [address] | | LAB | | | | [address], | | | | | | [place] [address] | | | | + + + + + + | ALT | 21Comment: Testing | 10 - 65 U/L | EXTERNAL | | | | performed at [facility], [address] | | LAB | | | | [address], | | | | | | [place] [address] | | | | + + + [...] | | | | | at [facility], [address] | | | | | | [address], | | | | | | [place] [address] | | | | + + + [...] [facility];[address] | mmol/L | LAB | | | | [address];[place], [place] | | | | | | [address] | | | | + + + [...] Testing performed at | | | [facility];[address] [facility];[place] [address] CULTURE | | | NO GROWTH | | | Testing performed at [facility], [address] [facility], | | | [place] [address] REPORT STATUS | | | 11/17/2013 FINAL [...] | EN LEVEL | performed at [facility];[address] | ug/mL | LAB | | | | [address];[place], [place] | | | | | | [address] | | | | + + + [...] | | | | performed at [facility], [address] | | LAB | | | | [address], | | | | | | [place] [address] | | | | + + + + + + | RED CELL | 3.54 (L)Comment: Testing | 3.70 - 5.10 | EXTERNAL | | | COUNT | performed at [facility], [address] | M/uL | LAB | | | | [address], | | | | | | [place] [address] | | | | + + + + + + | Hgb | 10.1 (L)Comment: Testing | 11.3 - 15.5 | EXTERNAL | | | | performed at [facility], [address] | g/dL | LAB | | | | [address], | | | | | | [place] [address] | | | | + + + + + + | Hematocrit, | 29.5 (L)Comment: Testing | 34.0 - 46.0 % | EXTERNAL | | | POC | performed at [facility], [address] | | LAB | | | | [address], | | | | | | [place] [address] | | | | + + + + + + | MCV | 83.4Comment: Testing | 80.0 - 100.0 fl | EXTERNAL | | | | performed at [facility], [address] | | LAB | | | | [address], | | | | | | [place] [address] | | | | + + + + + + | MCH | 28.7Comment: Testing | 27.0 - 34.0 pg | EXTERNAL | | | | performed at [facility], [address] | | LAB | | | | [address], | | | | | | [place] [address] | | | | + + + + + + | MCHC | 34.3Comment: Testing | 32.0 - 35.5 | EXTERNAL | | | | performed at [facility], [address] | g/dL | LAB | | | | [address], | | | | | | [place] [address] | | | | + + + + + + | RDW-CV | 37.6Comment: Testing | 37 - 53 fl | EXTERNAL | | | | performed at [facility], [address] | | LAB | | | | [address], | | | | | | [place] [address] | | | | + + + + + + | Platelet | 176Comment: Testing | 150 - 400 K/uL | EXTERNAL | | | Count | performed at [facility], [address] | | LAB | | | Plasma | [address], | | | | | | [place] [address] | | | | + + + + + + | MPV | 7.8Comment: Testing | fl | EXTERNAL | | | | performed at [facility], [address] | | LAB | | | | [address], | | | | | | [place] [address] | | | | + + + + + + | Differentia | AUTOMATEDComment: | | EXTERNAL | | | l Type | Testing performed at | | LAB | | | | [facility], [address] | | | | | | [place] | | | | | | [address] | | | | + + + [...] | | LAB | | | | [facility];[place], [place] | | | | | | [address] | | | | + + + [...] at [facility] | | LAB | | | | [address];[place] | | | | | | [address] | | | | + + [...] | EN LEVEL | performed at [facility];[address] | ug/mL | LAB | | | | [address];[place], [place] | | | | | | [address] | | | | + + + [...] [facility];[address] | mmol/L | LAB | | | | [address];[place] | | | | | | [address] | | | | + + + + + + | K | 3.1 (L)Comment: Testing | 3.5 - 4.9 | EXTERNAL | | | | performed at [facility];[address] | mmol/L | LAB | | | | [address];[place] | | | | | | [address] | | | | + + + + + + | Cl | 109Comment: Testing | 99 - 109 mmol/L | EXTERNAL | | | | performed at [facility];[address] | | LAB | | | | [address];[place] | | | | | | [address] | | | | + + + + + + | CO2 | 27Comment: Testing | 23 - 32 mmol/L | EXTERNAL | | | | performed at [facility];[address] | | LAB | | | | [address];[place] | | | | | | [address] | | | | + + + + + + | Anion Gap | 10Comment: Testing | 5 - 20 mmol/L | EXTERNAL | | | | performed at [facility];[address] | | LAB | | | | [address];[place] | | | | | | [address] | | | | + + + + + + | Glucose, | 78Comment: Testing | 65 - 99 mg/dL | EXTERNAL | | | Fasting | performed at [facility];[address] | | LAB | | | | [address];[place] | | | | | | [address] | | | | + + + + + + | BUN | 7 (L)Comment: Testing | 8 - 25 mg/dL | EXTERNAL | | | | performed at [facility];[address] | | LAB | | | | [address];[place] | | | | | | [address] | | | | + + + + + + | Creatinine | 0.77Comment: Testing | 0.50 - 1.00 | EXTERNAL | | | | performed at [facility];[address] | mg/dL | LAB | | | | [address];[place] | | | | | | [address] | | | | + + + + + + | BUN/Creatin | 9Comment: Testing | | EXTERNAL | | | ine Ratio | performed at [facility];[address] | | LAB | | | | [address];[place] | | | | | | [address] | | | | + + + + + + | Calcium | 7.8 (L)Comment: Testing | 8.5 - 10.2 | EXTERNAL | | | | performed at [facility];[address] | mg/dL | LAB | | | | [address];[place], [place] | | | | | | [address] | | | | + + + [...] | | | | | at [facility];[address];[place] [address] | | | | + + + [...] | EN LEVEL | performed at [facility];[address] | ug/mL | LAB | | | | [address];[place], [place] | | | | | | [address] | | | | + + + [...] | LAB | | | | [address] [facility];[place], [place] | | | | | | [address] | | | | + + + [...] | | | | | | ACUTE MD Testing | | | | | | performed at [facility] | | | | | | [address];[place], [place] | | | | | | [address] | | | | + + + [...] | LAB | | | | [address];[place], [place] | | | | | | [address] | | | | + + + [...] | EN LEVEL | performed at [facility];[address] | ug/mL | LAB | | | | [address];[place], [place] | | | | | | [address] | | | | + + + [...] TR | | | Vmax: 2.44 m/s Paper Cup Machine Operator: Authenticated by: Finesse Cortez | | | [...] 23.26 cmAVA Vmax: 3.14 cm2AVA (VTI): 2.90 md5RAQA Dopp: | | 4.57 l/ymzc7BFQL Dopp: 7.95 l/minHR: 117.60 BPMLVOT maxP.36 mmHgLVOT [...] maxP.88 mmHgTR Vmax: | | 2.44 m/s Paper Cup Machine Operator: ABAuthenticated by: Finesse Aponte Date/Time: 11-15-2013 | [...] |TR Vmax: 2.44 m/s | | | |Paper Cup Machine Operator: AB | |Authenticated by: Finesse Cortez MD [...] | EN LEVEL | performed at [facility];[address] | ug/mL | LAB | | | | [address];[place], [place] | | | | | | [address] | | | | + + + [...] [facility];888 | mmol/L | LAB | | | | [address];[place] | | | | | | [address] | | | | + + + + + + | K | 3.9Comment: Testing | 3.5 - 4.9 | EXTERNAL | | | | performed at [facility];888 | mmol/L | LAB | | | | [address];[place] | | | | | | [address] | | | | + + + + + + | Cl | 114 (H)Comment: Testing | 99 - 109 mmol/L | EXTERNAL | | | | performed at [facility];[address] | | LAB | | | | [address];[place] | | | | | | [address] | | | | + + + + + + | CO2 | 20 (L)Comment: Testing | 23 - 32 mmol/L | EXTERNAL | | | | performed at [facility];[address] | | LAB | | | | [address];[place] | | | | | | [address] | | | | + + + + + + | Anion Gap | 14Comment: Testing | 5 - 20 mmol/L | EXTERNAL | | | | performed at [facility];[address] | | LAB | | | | [address];[place] | | | | | | [address] | | | | + + + + + + | Glucose, | 153 (H)Comment: Testing | 65 - 99 mg/dL | EXTERNAL | | | Fasting | performed at [facility];[address] | | LAB | | | | [address];[place] | | | | | | [address] | | | | + + + + + + | BUN | 8Comment: Testing | 8 - 25 mg/dL | EXTERNAL | | | | performed at [facility];[address] | | LAB | | | | [address];[place] | | | | | | [address] | | | | + + + + + + | Creatinine | 0.92Comment: Testing | 0.50 - 1.00 | EXTERNAL | | | | performed at [facility];888 | mg/dL | LAB | | | | [address];[place] | | | | | | [address] | | | | + + + + + + | BUN/Creatin | 9Comment: Testing | | EXTERNAL | | | ine Ratio | performed at [facility];888 | | LAB | | | | [address];[place] | | | | | | [address] | | | | + + + + + + | Calcium | 7.4 (L)Comment: Testing | 8.5 - 10.2 | EXTERNAL | | | | performed at [facility];888 | mg/dL | LAB | | | | [address];[place] | | | | | | [address] | | | | + + + [...] | | | | | at [facility];[address];[place] [address] | | | | + + + [...] | LAB | | | | [address];[place] | | | | | | [address] | | | | + + + [...] | | | | | | ACUTE MD Testing | | | | | | performed at [facility];[address] | | | | | | [address];[place], [place] | | | | | | [address] | | | | + + + [...] | LAB | | | | [address];[place] | | | | | | [address] | | | | + + + [...] | EN LEVEL | performed at [facility];888 | ug/mL | LAB | | | | [address];[place], [place] | | | | | | [address] [...] [facility];888 | mmol/L | LAB | | | | [address];[place], [place] | | | | | | [address] | | | | + + + [...] at [facility] | | LAB | | | | [address];[place] | | | | | | [address] | | | | + + + [...] | | | | | | ACUTE MD CKTRP PHONED TO | | | | | | ICU GAYLE N AT 0540 BY | | | | | | LJREAD BACK RESULTS | | | | | | VERIFIEDTesting | | | | | | performed at [facility];888 | | | | | | [address];[place] | | | | | | [address] | | | | + + + [...] | LAB | | | | [address], | | | | | | [place] [address] | | | | + + + + + + | RED CELL | 3.94Comment: Testing | 3.70 - 5.10 | EXTERNAL | | | COUNT | performed at [facility], [address] | M/uL | LAB | | | | [address], | | | | | | [place] [address] | | | | + + + + + + | Hgb | 10.9 (L)Comment: Testing | 11.3 - 15.5 | EXTERNAL | | | | performed at [facility], [address] | g/dL | LAB | | | | [address], | | | | | | [place] [address] | | | | + + + + + + | Hematocrit, | 33.7 (L)Comment: Testing | 34.0 - 46.0 % | EXTERNAL | | | POC | performed at [facility], [address] | | LAB | | | | [address], | | | | | | [place] [address] | | | | + + + + + + | MCV | 85.6Comment: Testing | 80.0 - 100.0 fl | EXTERNAL | | | | performed at [facility], [address] | | LAB | | | | [address], | | | | | | [place] [address] | | | | + + + + + + | MCH | 27.7Comment: Testing | 27.0 - 34.0 pg | EXTERNAL | | | | performed at [facility], [address] | | LAB | | | | [address], | | | | | | [place] [address] | | | | + + + + + + | MCHC | 32.3Comment: Testing | 32.0 - 35.5 | EXTERNAL | | | | performed at [facility], [address] | g/dL | LAB | | | | [address], | | | | | | [place] [address] | | | | + + + + + + | RDW-CV | 37.6Comment: Testing | 37 - 53 fl | EXTERNAL | | | | performed at [facility], [address] | | LAB | | | | [address], | | | | | | [place] [address] | | | | + + + + + + | Platelet | 196Comment: Testing | 150 - 400 K/uL | EXTERNAL | | | Count | performed at [facility], [address] | | LAB | | | Plasma | [address], | | | | | | [place] [address] | | | | + + + + + + | MPV | 7.3Comment: Testing | fl | EXTERNAL | | | | performed at [facility], [address] | | LAB | | | | [address], | | | | | | [place] [address] | | | | + + + + + + | Differentia | AUTOMATEDComment: | | EXTERNAL | | | l Type | Testing performed at | | LAB | | | | [facility], [address] | | | | | | [place] | | | | | | [address] | | | | + + + [...] | | Serum | performed at [facility];[address] | mOsm/kg | LAB | | | | [address];[place] | | | | | | [address] | | | | + + + [...] | LAB | | | | [address];[place], [place] | | | | | | [address] | | | | + + + [...] | EN LEVEL | performed at [facility];[address] | ug/mL | LAB | | | | [address];[place], [place] | | | | | | [address] | | | | + + + [...] [facility];888 | mmol/L | LAB | | | | [address];[place] | | | | | | [address] | | | | + + + + + + | K | 3.2 (L)Comment: Testing | 3.5 - 4.9 | EXTERNAL | | | | performed at [facility];888 | mmol/L | LAB | | | | [address];[place] | | | | | | [address] | | | | + + + + + + | Cl | 117 (H)Comment: Testing | 99 - 109 mmol/L | EXTERNAL | | | | performed at [facility];888 | | LAB | | | | [address];[place] | | | | | | [address] | | | | + + + [...] CITY;[address] | | | | | | [address];[place] | | | | | | [address] | | | | + + + + + + | Anion Gap | 20Comment: Testing | 5 - 20 mmol/L | EXTERNAL | | | | performed at [facility];[address] | | LAB | | | | [address];[place] | | | | | | [address] | | | | + + + + + + | Glucose, | 130 (H)Comment: Testing | 65 - 99 mg/dL | EXTERNAL | | | Fasting | performed at [facility];[address] | | LAB | | | | [address];[place] | | | | | | [address] | | | | + + + + + + | BUN | 8Comment: Testing | 8 - 25 mg/dL | EXTERNAL | | | | performed at [facility];[address] | | LAB | | | | [address];[place] | | | | | | [address] | | | | + + + + + + | Creatinine | 0.69Comment: Testing | 0.50 - 1.00 | EXTERNAL | | | | performed at [facility];888 | mg/dL | LAB | | | | [address];[place] | | | | | | [address] | | | | + + + + + + | BUN/Creatin | 12Comment: Testing | | EXTERNAL | | | ine Ratio | performed at [facility];[address] | | LAB | | | | [address];[place] | | | | | | [address] | | | | + + + + + + | Calcium | 6.7 (L)Comment: Testing | 8.5 - 10.2 | EXTERNAL | | | | performed at [facility];888 | mg/dL | LAB | | | | [address];[place] | | | | | | [address] | | | | + + + + + + | Protein, | 5.2 (L)Comment: Testing | 6.3 - 8.2 g/dL | EXTERNAL | | | Total | performed at [facility];[address] | | LAB | | | | [address];[place] | | | | | | [address] | | | | + + + + + + | Albumin | 3.3Comment: Testing | 3.3 - 4.8 g/dL | EXTERNAL | | | | performed at [facility];[address] | | LAB | | | | [address];[place] | | | | | | [address] | | | | + + + + + + | Globulin | 1.9Comment: Testing | 1.3 - 4.9 g/dL | EXTERNAL | | | | performed at [facility];[address] | | LAB | | | | [address];[place] | | | | | | [address] | | | | + + + + + + | A/G Ratio | 1.8Comment: Testing | 1.0 - 2.4 | EXTERNAL | | | | performed at [facility];[address] | | LAB | | | | [address];[place] | | | | | | [address] | | | | + + + + + + | Bilirubin | 0.2Comment: Testing | 0.1 - 1.5 mg/dL | EXTERNAL | | | Total | performed at [facility];[address] | | LAB | | | | [address];[place] | | | | | | [address] | | | | + + + + + + | ALP, | 47Comment: Testing | 35 - 115 U/L | EXTERNAL | | | External | performed at [facility];[address] | | LAB | | | | [address];[place] | | | | | | [address] | | | | + + + [...] [place] | | | | | | [address] | | | | + + + [...] | | | | | at [facility];[address] [place] [address] | | | | | | [facility];[place] [address] | | | | + + + [...] | LAB | | | | [address];[place] | | | | | | [address] | | | | + + + [...] | LAB | | | | [facility];[address];[place] [address] | | | | + + + + + + | PCO2 ART | 40Comment: Testing | 35 - 45 mmHg | EXTERNAL | | | | performed at [facility];[address] | | LAB | | | | [address];[place] | | | | | | [address] | | | | + + + + + + | PO2 ART | 283 (H)Comment: Testing | 80 - 105 mmHg | EXTERNAL | | | | performed at [facility];[address] | | LAB | | | | [address];[place] | | | | | | [address] | | | | + + + + + + | Lactate, | 3.7 (H)Comment: Testing | 0.36 - 1.25 | EXTERNAL | | | Arterial | performed at [facility];888 | mmol/L | LAB | | | | [address];[place] | | | | | | [address] | | | | + + + + + + | HCO3 ART | 14 (L)Comment: Testing | 22 - 26 mmol/L | EXTERNAL | | | | performed at [facility];[address] | | LAB | | | | [address];[place] | | | | | | [address] | | | | + + + + + + | POC | 15 (L)Comment: Testing | 23 - 27 mEq/L | EXTERNAL | | | APPEARANCE | performed at [facility];[address] | | LAB | | | UA | [address];[place] | | | | | | [address] | | | | + + + + + + | Base | 15 (H)Comment: Testing | 0.0 - 2.0 | EXTERNAL | | | deficit | performed at [facility];888 | mmol/L | LAB | | | | [address];[place] | | | | | | [address] | | | | + + + + + + | O2 SAT ART | 100 (H)Comment: Testing | 95 - 98 % | EXTERNAL | | | | performed at [facility];[address] | | LAB | | | | [address];[place] | | | | | | [address] | | | | + + + + + + | FiO2, POC | 70Comment: Testing | % | EXTERNAL | | | | performed at [facility];888 | | LAB | | | | [address];[place] | | | | | | [address] | | | | + + + [...] [place] | | | | | | [address] | | | | + + + [...] [facility];888 | mmol/L | LAB | | | | [address];[place], [place] | | | | | | [address] | | | | + + + [...] | | (Calc) | performed at [facility];888 | mmol/L | LAB | | | | [address];[place], [place] | | | | | | [address] | | | | + + + + + + | pH, Bld | 7.179 (L)Comment: | 7.300 - 7.450 | EXTERNAL | | | | Testing performed at | | LAB | | | | [facility];[address];[place] [address] | | | | + + + [...] | | Patient | performed at [facility];888 | | LAB | | | | [address] [facility];[place], [place] | | | | | | [address] | | | | + + + [...] at [facility];[address] | | | | | | [address];[place], [place] | | | | | | [address] | | | | + + + [...] [place] | | | | | | [address] | | | | + + + + + + | RED CELL | 4.41Comment: Testing | 3.70 - 5.10 | EXTERNAL | | | COUNT | performed at [facility];888 | M/uL | LAB | | | | [address];[place] | | | | | | [address] | | | | + + + + + + | Hgb | 12.7Comment: Testing | 11.3 - 15.5 | EXTERNAL | | | | performed at [facility];888 | g/dL | LAB | | | | [address];[place] | | | | | | [address] | | | | + + + + + + | Hematocrit, | 37.4Comment: Testing | 34.0 - 46.0 % | EXTERNAL | | | POC | performed at [facility];[address] | | LAB | | | | [address];[place] | | | | | | [address] | | | | + + + + + + | MCV | 84.7Comment: Testing | 80.0 - 100.0 fl | EXTERNAL | | | | performed at [facility];[address] | | LAB | | | | [address];[place] | | | | | | [address] | | | | + + + + + + | MCH | 28.8Comment: Testing | 27.0 - 34.0 pg | EXTERNAL | | | | performed at [facility];[address] | | LAB | | | | [address];[place] | | | | | | [address] | | | | + + + + + + | MCHC | 34.0Comment: Testing | 32.0 - 35.5 | EXTERNAL | | | | performed at [facility];888 | g/dL | LAB [...] [place] | | | | | | [address] | | | | + + + + + + | Platelet | 296Comment: Testing | 150 - 400 K/uL | EXTERNAL | | | Count | performed at [facility];[address] | | LAB | | | Plasma | [address];[place] | | | | | | [address] | | | | + + + + + + | MPV | 7.2Comment: Testing | fl | EXTERNAL | | | | performed at [facility];[address] | | LAB | | | | [address];[place] | | | | | | [address] | | | | + + + + + + | Differentia | AUTOMATEDComment: | | EXTERNAL | | | l Type | Testing performed at | | LAB | | | | [facility];[address];[place] [address] | | | | + + + [...] | LAB | | | | [address];[place] | | | | | | [address] | | | | + + + [...] at [facility] | | LAB | | | | [address];[place], [place] | | | | | | [address] | | | | + + + [...] | EN LEVEL | performed at [facility];888 | ug/mL | LAB | | | | [address];[place] | | | | | | [address] | | | | + + + [...] | | Total | performed at [facility];[address] | | LAB | | | | [address];[place] | | | | | | [address] | | | | + + + + + + | Albumin | 3.1 (L)Comment: Testing | 3.3 - 4.8 g/dL | EXTERNAL | | | | performed at [facility];[address] | | LAB | | | | [address];[place] | | | | | | [address] | | | | + + + + + + | Bilirubin | 0.2Comment: Testing | 0.1 - 1.5 mg/dL | EXTERNAL | | | Total | performed at [facility];[address] | | LAB | | | | [address];[place] | | | | | | [address] | | | | + + + + + + | Bilirubin | <0.1Comment: Testing | 0.0 - 0.3 mg/dL | EXTERNAL | | | Direct | performed at [facility];[address] | | LAB | | | | [address];[place] | | | | | | [address] | | | | + + + + + + | ALP, | 76Comment: Testing | 35 - 115 U/L | EXTERNAL | | | External | performed at [facility];[address] | | LAB | | | | [address];[place] | | | | | | [address] | | | | + + + + + + | AST | 75 (H)Comment: Testing | 10 - 45 U/L | EXTERNAL | | | | performed at [facility];[address] | | LAB | | | | [address];[place] | | | | | | [address] | | | | + + + [...] [facility];888 | mmol/L | LAB | | | | [address];[place] | | | | | | [address] | | | | + + + + + + | K | 3.0 (L)Comment: Testing | 3.5 - 4.9 | EXTERNAL | | | | performed at [facility];888 | mmol/L | LAB | | | | [address];[place] | | | | | | [address] | | | | + + + + + + | Cl | 114 (H)Comment: Testing | 99 - 109 mmol/L | EXTERNAL | | | | performed at [facility];[address] | | LAB | | | | [address];[place] | | | | | | [address] | | | | + + + + + + | CO2 | 16 (L)Comment: Testing | 23 - 32 mmol/L | EXTERNAL | | | | performed at [facility];[address] | | LAB | | | | [address];[place] | | | | | | [address] | | | | + + + + + + | Anion Gap | 16Comment: Testing | 5 - 20 mmol/L | EXTERNAL | | | | performed at [facility];[address] | | LAB | | | | [address];[place] | | | | | | [address] | | | | + + + + + + | Glucose, | 187 (H)Comment: Testing | 65 - 99 mg/dL | EXTERNAL | | | Fasting | performed at [facility];[address] | | LAB | | | | [address];[place] | | | | | | [address] | | | | + + + + + + | BUN | 10Comment: Testing | 8 - 25 mg/dL | EXTERNAL | | | | performed at [facility];[address] | | LAB | | | | [address];[place] | | | | | | [address] | | | | + + + + + + | Creatinine | 0.79Comment: Testing | 0.50 - 1.00 | EXTERNAL | | | | performed at [facility];888 | mg/dL | LAB | | | | [address];[place] | | | | | | [address] | | | | + + + + + + | BUN/Creatin | 13Comment: Testing | | EXTERNAL | | | ine Ratio | performed at [facility];[address] | | LAB | | | | [address];[place] | | | | | | [address] | | | | + + + + + + | Calcium | 6.5 (L)Comment: Testing | 8.5 - 10.2 | EXTERNAL | | | | performed at [facility];888 | mg/dL | LAB | | | | [address];[place] | | | | | | [address] | | | | + + + [...] | | | | | at [facility];[address] | | | | [address];[place] [address] | | | | + + + [...] Conversion - 06/15/2019 1:42 PM PDT RONALD [id number] years | | FemaleCT HEAD WO CONTRAST11/14/2013 [...] Testing performed at | | | [facility];[address] [facility];[place] [address] GRAM STAIN | | | GREATER THAN 10 WBCS/LPF | | | LESS THAN 10 SEC/LPF | | | 2+ GRAM POSITIVE COCCI | | | 1+ GRAM POSITIVE RODS | | | Testing performed at [facility], [address] | | | [place] [address] CULTURE | | | 2+ NORMAL UPPER RESPIRATORY CURTIS | | | Testing performed at [facility], [address] | | | [place] [address] REPORT STATUS | | | 11/16/2013 FINAL [...] [place] | | | | | | [address] | | | | + + + + + + | RBC, UA | 0-2Comment: Testing | 0 - 5 /hpf | EXTERNAL | | | | performed at [facility];[address] | | LAB | | | | [address];[place] | | | | | | [address] | | | | + + + + + + | Epithelial | NONE SEENComment: | /lpf | EXTERNAL | | | Cells | Testing performed at | | LAB | | | | [facility];[address];[place] [address] | | | | + + + + + + | Bacteria, | TRACE (A)Comment: | | EXTERNAL | | | UA | Testing performed at | | LAB | | | | [facility];[address] [place] [address] | | | | | | [facility];[place] [address] | | | | + + + [...] [place] | | | | | | [address] | | | | + + + + + + | Clarity | CLEARComment: Testing | | EXTERNAL | | | | performed at [facility];[address] | | LAB | | | | [address];[place] | | | | | | [address] | | | | + + + + + + | Specific | 1.004Comment: Testing | 1.001 - 1.035 | EXTERNAL | | | [place] | performed at [facility];[address] | | LAB | | | | [address];[place] | | | | | | [address] | | | | + + + + + + | Leukocyte | TRACE (A)Comment: | | EXTERNAL | | | Esterase, | Testing performed at | | LAB | | | Urine | [facility];[address];[place] [address] | | | | + + + + + + | Nitrite, | NEGATIVEComment: Testing | | EXTERNAL | | | Urine | performed at [facility];[address] | | LAB | | | | [address];[place] | | | | | | [address] | | | | + + + + + + | Urobilinoge | 0.2Comment: Testing | mg/dL | EXTERNAL | | | n, Urine | performed at [facility];[address] | | LAB | | | | [address];[place] | | | | | | [address] | | | | + + + + + + | Protein, | NEGATIVEComment: Testing | mg/dL | EXTERNAL | | | Urine | performed at [facility];[address] | | LAB | | | | [address];[place] | | | | | | [address] | | | | + + + + + + | pH, Urine | 5.0Comment: Testing | 4.6 - 8.0 | EXTERNAL | | | | performed at [facility];[address] | | LAB | | | | [address];[place] | | | | | | [address] | | | | + + + + + + | Blood, | NEGATIVEComment: Testing | | EXTERNAL | | | Urine | performed at [facility];[address] | | LAB | | | | [address];[place] | | | | | | [address] | | | | + + + + + + | Ketones | NEGATIVEComment: Testing | mg/dL | EXTERNAL | | | | performed at [facility];[address] | | LAB | | | | [address];[place] | | | | | | [address] | | | | + + + + + + | Bilirubin, | NEGATIVEComment: Testing | | EXTERNAL | | | Urine | performed at [facility];[address] | | LAB | | | | [address];[place] | | | | | | [address] | | | | + + + + + + | Glucose, | NEGATIVEComment: Testing | mg/dL | EXTERNAL | | | Urine | performed at [facility];[address] | | LAB | | | | [address];[place] | | | | | | [address] | | | | + + + [...] LAB | | Testing performed at [facility];[address] [place] [address];[place] [address] MRSA PCR | | | NEGATIVE Testing performed at | | | [address];[place] [address] | | + + + + +---------+ [...] | LAB | | | | [address];[place], [place] | | | | | | [address] | | | | + + + [...]
--- OUTSIDE RECORDS SUMMARY | ~2019-10-10 | XMS | Encounter Summary ---
Demographics + + + | Address | [address] | | | [place] [address] | + + + | Home Phone [...] + +------+ + | Care Manager Of Corporate Name | Role | Phone | + +------+ + | Concepción Gallardo NP | PCP | | + +------+ + Encounter Details +--------+ + + + + | Date | Type | Department | Care Team | Description | +--------+ + + + + | 07/17/ | Hospital | [facility] | Paty, | Intractable low back | | 2014 - | Encounter | [facility] | MD [address] | pain | | | | CLINICAL DECISION | [address] | | | 07/18/ | | [address] | [place] [address] | | | 2013 | | [place], [place] | [phone] | | | | | [address] | | | | | | [phone] | | | +--------+ + + + [...] Date of Service: 07/18/14 1131 Status: Signed Termination Clerk: Bob Valverde DO (Physician) [facility] Service: Hospitalist Discharge Summary Date of [...] IV Fentanyl, a s well as oral [place] 10's, Zanaflex, Klonopin, and PT was ordered. [...] Date of Service: 07/18/14 1310 Status: Signed Termination Clerk: Nati Mena RN (Registered Nurse) Pt discharged [...] Notes by Nati Mena RN at 07/18/14 4225 Author: Nati Mena RN Service: (none) Author Type: Registered Nurse Filed: 07/18/14 1876 Date of Service: 07/18/14 1245 Status: Signed Termination Clerk: Nati Mena RN (Registered Nurse) Pt to [...] Date of Service: 07/18/14 1245 Status: Addendum Termination Clerk: Sj Bender PT (Physical Therapist) Related Notes: [...] Recommended (has FWW) Prior Function Level of Kemper Modified independent with functional mobility;Modified independent wi [...] G Codes Mobility: Walking & Moving Around: $G8923 Current Status : CK - At least 40% but less than 60% impaired, limited or restricted $G8924 Projected Goal Status : CK - At [...] 0549 Date of Service: 07/18/14509 Status: Signed Termination Clerk: Dion Goldsmith RN (Registered Nurse) 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 COLD ROLL OPERATOR reports pt woke up to ask what her blood pressure is. Pt sleepin g now. Plan to recheck B/P in an hour. onver hiren Akosua, Provider Unknown - 07/18/2014 3:29 AM PDT Progress Notes by Sofi Sol RPH at 07/18/14328 Author: Sfoi Sol RPH Service: (none) Author Type: Pharmacist Filed: 07/18/14328 Date of Service: 07/18/14328 Status: Signed Termination Clerk: Sofi Sol RPH (Pharmacist) Clinical Pharmacy Note: [...] [place] | | | | | | [address] | | | | | | | [...] | performed at [facility] | | LAB | | | | [address];[place], [place] | | | | | | [address] | | | | + + + [...] [facility];[address] | | LAB | | | | [address];[place] | | | | | | [address] | | | | + + + [...] EXTERNAL | | | | performed at [facility], [address] | | LAB | | | | [address], | | | | | | [place] [address] | | | | + + + + + + | RED CELL | 4.16Comment: Testing | 3.70 - 5.10 | EXTERNAL | | | COUNT | performed at [facility], [address] | M/uL | LAB | | | | [address], | | | | | | [place] [address] | | | | + + + + + + | Hgb | 11.6Comment: Testing | 11.3 - 15.5 | EXTERNAL | | | | performed at [facility], [address] | g/dL | LAB | | | | [address], | | | | | | [place] [address] | | | | + + + + + + | Hematocrit, | 36.4Comment: Testing | 34.0 - 46.0 % | EXTERNAL | | | POC | performed at [facility], [address] | | LAB | | | | [address], | | | | | | [place] [address] | | | | + + + + + + | MCV | 87.5Comment: Testing | 80.0 - 100.0 fl | EXTERNAL | | | | performed at [facility], [address] | | LAB | | | | [address], | | | | | | [place] [address] | | | | + + + + + + | MCH | 27.9Comment: Testing | 27.0 - 34.0 pg | EXTERNAL | | | | performed at [facility], [address] | | LAB | | | | [address], | | | | | | [place] [address] | | | | + + + + + + | MCHC | 31.9 (L)Comment: Testing | 32.0 - 35.5 | EXTERNAL | | | | performed at [facility], [address] | g/dL | LAB | | | | [address], | | | | | | [place] [address] | | | | + + + + + + | RDW-CV | 43.8Comment: Testing | 37 - 53 fl | EXTERNAL | | | | performed at [facility], [address] | | LAB | | | | [address], | | | | | | [place] [address] | | | | + + + + + + | Platelet | 244Comment: Testing | 150 - 400 K/uL | EXTERNAL | | | Count | performed at [facility], [address] | | LAB | | | Plasma | [address], | | | | | | [place] [address] | | | | + + + + + + | MPV | 8.3Comment: Testing | fl | EXTERNAL | | | | performed at [facility], [address] | | LAB | | | | [address], | | | | | | [place] [address] | | | | + + + + + + | Differentia | AUTOMATEDComment: | | EXTERNAL | | | l Type | Testing performed at | | LAB | | | | [facility], [address] | | | | | | [place] | | | | | | [address] | | | | + + + + + + | % Segmented | 40.1Comment: Testing | % | EXTERNAL | | | | performed at [facility], [address] | | LAB | | | Neutrophils | [address], | | | | | | [place] [address] | | | | + + + + + + | % | 48.1Comment: Testing | % | EXTERNAL | | | Lymphocytes | performed at [facility], [address] | | LAB | | | | [address], | | | | | | [place] [address] | | | | + + + + + + | % Monocytes | 9.5Comment: Testing | % | EXTERNAL | | | | performed at [facility], [address] | | LAB | | | | [address], | | | | | | [place] [address] | | | | + + + + + + | % | 1.9Comment: Testing | % | EXTERNAL | | | Eosinophils | performed at [facility], [address] | | LAB | | | | [address], | | | | | | [place] [address] | | | | + + + + + + | % Basophils | 0.4Comment: Testing | % | EXTERNAL | | | | performed at [facility], [address] | | LAB | | | | [address], | | | | | | [place] [address] | | | | + + + + + + | Absolute | 2.0Comment: Testing | 1.9 - 7.4 K/uL | EXTERNAL | | | Segmented | performed at [facility], [address] | | LAB | | | Neutrophils | [address], | | | | | | [place] [address] | | | | + + + + + + | Absolute | 2.4Comment: Testing | 1.0 - 3.9 K/uL | EXTERNAL | | | Lymphocytes | performed at [facility], [address] | | LAB | | | | [address], | | | | | | [place] [address] | | | | + + + + + + | Absolute | 0.5Comment: Testing | 0 - 0.8 K/uL | EXTERNAL | | | Monocytes | performed at [facility], [address] | | LAB | | | | [address], | | | | | | [place] [address] | | | | + + + + + + | Absolute | 0.1Comment: Testing | 0 - 0.5 K/uL | EXTERNAL | | | Eosinophils | performed at [facility], [address] | | LAB | | | | [address], | | | | | | [place] [address] | | | | + + + + + + | Absolute | 0.0Comment: Testing | 0 - 0.1 K/uL | EXTERNAL | | | Basophils | performed at [facility], [address] | | LAB | | | | [address], | | | | | | [place] [address] | | | | + + + [...] | | | | | [place] [address] | | | | + + + [...] EXTERNAL | | | | performed at [facility], [address] | | LAB | | | | [address], | | | | | | [place] [address] | | | | + + + [...] | | | | | [place] [address] | | | | + + [...] | Hemoglobin | 5.2Comment: [place] | 4.0 - 6.0 % | EXTERNAL [...] | | | | | performed at [facility], [address] | | | | | [address], | | | | | | [place] [address] | | | | + + + [...] | | | | | performed at [facility], [address] | | | | | | [address], | | | | | | [place] [address] | | | | + + + [...] | | | Direct | performed at [facility], [address] | | LAB | | | | [address], | | | | | | [place] [address] | | | | + + + [...] | | | | | [place] [address] | | | | + + + + + + | K | 4.0Comment: Testing | 3.5 - 4.9 | EXTERNAL | | | | performed at [facility], [address] | mmol/L | LAB | | | | [address], | | | | | | [place] [address] | | | | + + + + + + | Cl | 106Comment: Testing | 99 - 109 mmol/L | EXTERNAL | | | | performed at [facility], [address] | | LAB | | | | [address], | | | | | | [place] [address] | | | | + + + + + + | CO2 | 28Comment: Testing | 23 - 32 mmol/L | EXTERNAL | | | | performed at [facility], [address] | | LAB | | | | [address], | | | | | | [place] [address] | | | | + + + + + + | Anion Gap | 8Comment: Testing | 5 - 20 mmol/L | EXTERNAL | | | | performed at [facility], [address] | | LAB | | | | [address], | | | | | | [place] [address] | | | | + + + + + + | Glucose, | 82Comment: Testing | 65 - 99 mg/dL | EXTERNAL | | | Fasting | performed at [facility], [address] | | LAB | | | | [address], | | | | | | [place] [address] | | | | + + + + + + | BUN | 18Comment: Testing | 8 - 25 mg/dL | EXTERNAL | | | | performed at [facility], [address] | | LAB | | | | [address], | | | | | | [place] [address] | | | | + + + + + + | Creatinine | 0.61Comment: Testing | 0.50 - 1.00 | EXTERNAL | | | | performed at [facility], [address] | mg/dL | LAB | | | | [address], | | | | | | [place] [address] | | | | + + + + + + | BUN/Creatin | 30Comment: Testing | | EXTERNAL | | | ine Ratio | performed at [facility], [address] | | LAB | | | | [address], | | | | | | [place] [address] | | | | + + + + + + | Calcium | 8.7Comment: Testing | 8.5 - 10.2 | EXTERNAL | | | | performed at [facility], [address] | mg/dL | LAB | | | | [address], | | | | | | [place] [address] | | | | + + + + + + | Protein, | 5.9 (L)Comment: Testing | 6.3 - 8.2 g/dL | EXTERNAL | | | Total | performed at [facility], [address] | | LAB | | | | [address], | | | | | | [place] [address] | | | | + + + + + + | Albumin | 3.7Comment: Testing | 3.3 - 4.8 g/dL | EXTERNAL | | | | performed at [facility], [address] | | LAB | | | | [address], | | | | | | [place] [address] | | | | + + + + + + | Globulin | 2.2Comment: Testing | 1.3 - 4.9 g/dL | EXTERNAL | | | | performed at [facility], [address] | | LAB | | | | [address], | | | | | | [place] [address] | | | | + + + + + + | A/G Ratio | 1.7Comment: Testing | 1.0 - 2.4 | EXTERNAL | | | | performed at [facility], [address] | | LAB | | | | [address], | | | | | | [place] [address] | | | | + + + + + + | Bilirubin | 0.3Comment: Testing | 0.1 - 1.5 mg/dL | EXTERNAL | | | Total | performed at [facility], [address] | | LAB | | | | [address], | | | | | | [place] [address] | | | | + + + + + + | ALP, | 86Comment: Testing | 35 - 115 U/L | EXTERNAL | | | External | performed at [facility], [address] | | LAB | | | | [address], | | | | | | [place] [address] | | | | + + + + + + | AST | 162 (H)Comment: Testing | 10 - 45 U/L | EXTERNAL | | | | performed at [facility], [address] | | LAB | | | | [address], | | | | | | [place] [address] | | | | + + + + + + | ALT | 112 (H)Comment: Testing | 10 - 65 U/L | EXTERNAL | | | | performed at [facility], [address] | | LAB | | | | [address], | | | | | | [place] [address] | | | | + + + [...] | | | | | | at [facility], [address] | | | | | | [address], | | | | | | [place] [address] | | | | + + + [...] LAB | | | | [address];[place], [place] | | | | | | [address] | | | | + + + [...]
--- OUTSIDE RECORDS SUMMARY | ~2019-10-10 | XMS | Encounter Summary ---
Demographics + + + | Address | [address] | | | [place] [address] | + + + | Home Phone [...] Team Providers + +------+ + | Care Ethylene Plant Operator Name | Role | Phone [...] Vasquez VALDEZ | | | | | [phone] | [place] [address] | | +--------+ + + + + [...] [place] | | | | | | [address] | | | | | | | [...]
--- OUTSIDE RECORDS SUMMARY | ~2019-10-10 | XMS | Encounter Summary ---
Demographics + + + | Address | [address] | | | [place] [address] | + + + | Home Phone [...] Team Providers + +------+ + | Care Alum Mixer Name | Role | Phone | [...] + + | 07/05/ | Telephone | [facility] | Maykel Hutchins MD | Advice Only; Other | | 2019 | | [facility] | [address] | (inform office) | | | | ORTHOPEDIC SPINE | [place] | | | | | [address] [place] | [place] [address] | | | | | [place] | [phone] | | | | | [address] | | | | | | [phone] | | | +--------+ + + + [...] | | | | | | [address] [place] | | | | | | [address] | | | | | | | [...]
--- OUTSIDE RECORDS SUMMARY | ~2019-10-10 | XMS | Encounter Summary ---
Demographics + + + | Address | [address] | | | [place] [address] | + + + | Home Phone [...] Author | [facility] (Historical as of | | | 06-16-19) | + + + | Organization | [facility] (Historical as of | | [...] Providers + +------+ + | Care Thermal Spray Operator Name | Role | Phone | + +------+ + | Romy De La Paz MD | PCP | | + +------+ + Encounter Details +--------+---------+ + + + | Date | Type | Department | Care Team | Description | +--------+---------+ + + + | 08/03/ | Surgery | [facility] | Maykel Hutchins MD | [facility] [place] | | 2019 | | [facility] | [address] | STIMULATOR - | | | | Operating Room [address] | [place] [address] | THORACIC LAMINECTOMY | | | | [address] | [phone] | | | | | [place] [address] | | | | | | [phone] | | | +--------+---------+ + + + [...]
--- OUTSIDE RECORDS SUMMARY | ~2019-10-10 | XMS | Encounter Summary ---
Demographics + + + | Address | [address] | | | [place] [address] | + + + | Home Phone [...] Team Providers + +------+ + | Care Grapple Skidder Operator Name | Role | Phone | [...] + | 04/25/ | Emergency | [facility] | Billy Romo, | Concussion, without | | 2016 | | HOSPITAL EMERGENCY | [address] | LOC, initial | | | | [place] [address] MEDICAL | [place], | encounter (Primary | | | | [employer], [place] | [place] [address] | Dx); Cervical | | | | [address] | [phone] | strain, acute, | | | | [phone] | | initial encounter | +--------+ + [...] sent through Care Everywhere.CERVICAL STRAIN , UNDERSTANDING (FIJIAN)CONCUSSION, AFTER (FIJIAN)CONCUSSION, COPING WITH (FIJIAN)manish disla in this encounter Medications at Time [...] [place] | | | | | | [address] | | | | | | | [...] L?MRN: | | | | | | [id number] | | | [id number] | | | his | | | [...] | | | St. | | | [place] | | | y H. | | [...] | | | St. | | | [place] | | | y | | | [...] | | | n, | | | BUSINESS RISK ANALYST, | | | BUSINESS RISK ANALYST | | | Primar | | | [...] Performed At | + + + | [address] | | | [place], [place] [address] | | | NAME: KORI HARMON DATE: 04/25/2017 | | | : 1945 PT GENDER: F ROOM: ER PHYSICIAN: | | | BILLY ROMO PID#: [id number] CC TO: MR#: | | | PROCEDURE: [...] Rad Results In - 04/27/2017 9:10 AM [facility] | | [address] [facility] | | [place], [place] [address] | | | | | | NAME: KORI HARMON DATE: 04/25/2017 | | : 1945 PT GENDER: F ROOM: ER | | PHYSICIAN: BILLY ROMO PID#: [id number] | | CC TO: MR#: | | [...] Performed At | + + + | [address] | | | [place], [place] [address] | | | NAME: KORI HARMON DATE: 04/25/2017 | | | : 1945 PT GENDER: F ROOM: ER PHYSICIAN: | | | BILLY ROMO PID#: [id number] CC TO: MR#: | | | PROCEDURE: [...] Results In - 04/27/2017 9:10 AM PDT [facility] | | [address] [place] [address] | | [place], [place] [address] | | | | | | NAME: KORI HARMON DATE: 04/25/2017 | | : 1945 PT GENDER: F ROOM: ER | | PHYSICIAN: BILLY ROMO PID#: [id number] | | CC TO: MR#: | | [...] | + + + + + | [facility] | [address] | [place] [address] | [phone] | | HOSPITAL LABORATORY | | | [...] 99 | 70 - 110 mg/dL | [facility] | | [facility] | | | | | | [facility]OSPITAL | | | | | | LABORATORY | | + + + + + + | BUN | 21 | 5 - 26 mg/dL | [facility] | | | | | | [facility] | | | | | | LABORATORY | | + + + + + + | Creatinine | 0.83 | >.60-<1.30 | [facility] | | | | | mg/dL | COMMUN[facility] | | | | | | HOSPITAL | | | | | | LABORATORY | | + + + + + + | eGFR if not | >60Comment: GLOMERULAR | >=60 | [facility] | | | | FILTRATION | mL/min/1.73m2 | [facility] | | | GUAMANIAN | RATE,ESTIMATED | | HOSPITAL | | | | mL/min/1.83t9Jcez than | | LABORATORY | | | [...] | + + + + + | [facility] | [address] | [place] [address] | [phone] | | HOSPITAL LABORATORY | | | | + + + + + CBC with Differential (04/25/2017 7:20 PM PDT) + + + + + + | Component | Value | Ref Range | Performed | Pathologist | | | | | At | Signature | + + + + + + | WBC | 6.1 | >4.5-<11.0 K/uL | [facility] | | | | | | COMMUNITY [...] | + + + + + | [facility] | [address] | [place] [address] | [phone] | | HOSPITAL LABORATORY | | | | + + + + + documented in this encounter Visit Diagnoses + + | Diagnosis | + + | Concussion, without LOC, initial encounter - Primary | + + | Cervical strain, acute, initial encounter | + + documented in this encounter
--- OUTSIDE RECORDS SUMMARY | ~2019-10-10 | XMS | Encounter Summary ---
Demographics + + + | Address | [address] | | | [place] [address] | + + + | Home Phone [...] Providers + +------+ + | Care Residential Sales Consultant Name | Role | Phone [...] | | at [facility] [address] | [address] | new pt appt) | | | | Mcadams Brittany Mailcode: | [address] [facility] | | | | | [address] | [place] [address] | | | | | Health and Healing, | [phone] | | | | | [facility] | | | | | | Floor [place], [place] | | | | | | [address] | | | | | | [phone] | | | +--------+ + + + [...]
--- OUTSIDE RECORDS SUMMARY | ~2019-10-10 | XMS | Encounter Summary ---
Demographics + + + | Address | [address] | | | [place] [address] | + + + | Home Phone [...] + + | 07/12/ | Hospital | [facility] | Sj Valdes MD | Left lumbar | | 2017 | Encounter | MED CTR XRAY [address] | [address] | radiculopathy; DISC | | | | [place] | [place] [address] | DISEASE, LUMBAR; | | | | [place] [address] | [phone] | Back pain, | | | | [phone] | | unspecified back | | | [...] [place] | | | | | | [address] | | | | | | | [...]
--- OUTSIDE RECORDS SUMMARY | ~2019-10-10 | XMS | Encounter Summary ---
Demographics + + + | Address | [address] | | | [place] [address] | + + + | Home Phone [...] Team Providers + +------+ + | Care Plating And Point Assembly Supervisor Name | Role | Phone | + +------+ + PCP | Unavailable | + +------+ + Encounter Details +--------+ + + + + | Date | Type | Department | Care Team | Description | +--------+ + + + + | 06/26/ | Respiratory | | Other, Faculty | | | 2006 | Therapy | | [phone] | | +--------+ + + + + [...] Hassan, | | | | | | MANAGER BEHAVIORAL | | | | + + + [...] RADHA ALONZO | [address] | [place], [place] | | | DIAGNOSTICS - | [place] | [address] | | | PULMONARY FUNCTION | | | | + + + + + documented in this encounter Visit Diagnoses Not on filedocumented in this encounter"
--- OUTSIDE RECORDS SUMMARY | ~2019-10-10 | XMS | Encounter Summary ---
Demographics + + + | Address | [address] | | | [place] [address] | + + + | Home Phone [...] + + + | Author | [facility] | + + + | Organization | [facility] | + + + | Address | Unknown | + + + | Phone | Unavailable | + + + Support + + +---------+ + | Name | Relationship | Address | Phone | + + +---------+ + | Royce Menchaca | ECON | Unknown | | + + +---------+ + Care Team Providers + +------+ + | Care Commission Auditor Name | Role | Phone | [...] | | 2016 | Encounter | at [facility] [address] | [address] | medical records from | | | | Abbe Soto Mailcode: | [address] [place], | [facility] in | | | | [facility] | [place] [address] | [facility] | | | | [facility] Healing, | [phone] | in [facility] | | | | [facility] | | Ant | | | | Floor [place], [place] | | | | | | [address] | | | | | | [phone] | | | +--------+ + + + [...]
--- OUTSIDE RECORDS SUMMARY | ~2019-10-10 | XMS | Encounter Summary ---
Demographics + + + | Address | [address] | | | [place] [address] | + + + | Home Phone [...] Team Providers + +------+ + | Care Evs Tech Name | Role | Phone | [...] + + | 08/31/ | Telephone | [facility] | Niki Pizarro, | Other (patient | | 2019 | | NEUROSURGERY [address] | RN | trying to reach | | | | [address] | | [facility]'s office) | | | | [place] | | | | | | [address] | | | | | | [phone] | | | +--------+ + + + [...] [place] | | | | | | [address] | | | | | | | | +--------+---------+ + + + documented as of this encounter Visit Diagnoses Not on filedocumented in this encounter"
--- OUTSIDE RECORDS SUMMARY | ~2019-10-10 | XMS | Encounter Summary ---
Demographics + + + | Address | [address] | | | [place] [address] | + + + | Home Phone [...] Team Providers + +------+ + | Care Provider Enrollment Specialist Name | Role | Phone | + +------+ + | Romy De La Paz MD | PCP | | + +------+ + Encounter Details +--------+ + + + + | Date | Type | Department | Care Team | Description | +--------+ + + + + | 07/18/ | Preadmit | [facility] | No, Physician | | | 2019 | Visit | CENTER PREADMIT | | | | | | CLINIC [address] | | | | | | [place], [place] | | | | | | [address] | | | | | | [phone] | | | +--------+ + + + [...] for the 07/18/19 encounter (Preadmit Visit) with [facility] ROOM 5 Medication Sig Instructions [...] by elevating your feet Date Last Reviewed: 0127-4811 [employer] [address] [place] [address]. All righ ts reserved. This information is [...] [place] | | | | | | [address] | | | | | | | [...] | | LABORATORY | | | | Blvd;[place] [address] | | | | + + + + + + + + | Specimen | + + | Blood | + + + + + + + | Performing | Address | City/State/Zipcode | Phone Number | | Organization | | | | + + + + + | [facility] | [address] | [place] [address] | [phone] | + + + + + MRSA [...] [facility] | | | | performed at [facility];[address] | | LABORATORY | | | | [address];[place], [place] | | | | | | [address] | | | | + + + + + + + + | Specimen | + + | Tissue - Both | | anterior nares (body | | structure) | + + + + + + + | Performing | Address | City/State/Zipcode | Phone Number | | Organization | | | | + + + + + | [facility] | [address] | [place] [address] | [phone] | + + + + + Protime INR (07/18/2019 2:26 PM PDT) + + + + + + | Component | Value | Ref Range | Performed | Pathologist | | | | | At | Signature | + + + + + + | INR | 1.0Comment: REFERENCE | | [facility] | | | | RANGE:0.9 - 1.2 [...] | | | | | performed at [facility];[address];[place] | | | | | | [address] | | | | + + + + + + + + | Specimen | + + | Blood | + + + + + + + | Performing | Address | City/State/Zipcode | Phone Number | | Organization | | | | + + + + + | [facility] | [address] | [place] [address] | [phone] | + + + + + PTT (07/18/2019 2:26 PM PDT) + + + + + + | Component | Value | Ref Range | Performed | Pathologist | | | | | At | Signature | + + + + + + | PTT | 29Comment: Testing | 23 - 32 seconds | [facility] | | | | performed at [facility];[address] | | [address] | | | | [address];[place] | | | | | | [address] | | | | + + + + + + + + | Specimen | + + | Blood | + + + + + + + | Performing | Address | City/State/Zipcode | Phone Number | | Organization | | | | + + + + + | [facility] | [address] | [place] [address] | [phone] | + + + + + Comprehensive [...] W | | | | | | [facility], | | | | | | [place] [address] | | | | + + + + + + + + | Specimen | + + | Blood | + + + + + + + | Performing | Address | City/State/Zipcode | Phone Number | | Organization | | | | + + + + + | [facility] | [address] | [place] [address] | [phone] | + + + + + CBC [...] | | | | | [place] [address] | | | | + + + + + + + + | Specimen | + + | Blood | + + + + + + + | Performing | Address | City/State/Zipcode | Phone Number | | Organization | | | | + + + + + | [facility] | [address] | [place] [address] | [phone] | + + + + + ECG [...]
--- OUTSIDE RECORDS SUMMARY | ~2019-10-10 | XMS | Encounter Summary ---
Demographics + + + | Address | [address] | | | [place] [address] | + + + | Home Phone [...] | + + +---------+ + | Royce Mencahca | ECON | Unknown | | + + +---------+ + Care Team Providers + +------+ + | Care Paralegal Legal Secretary Name | Role | Phone | + +------+ + PCP | Unavailable | + +------+ + Encounter Details +--------+ + + + + | Date | Type | Department | Care Team | Description | +--------+ + + + + | 06/26/ | Respiratory | | Other, Faculty | | | 2006 | Therapy | | [phone] | | +--------+ + + + + [...] RADHA ALONZO | [address] | [place], [place] | | | DIAGNOSTICS - | [place] | [address] | | | PULMONARY FUNCTION | | | | + + + + + documented in this encounter Visit Diagnoses Not on filedocumented in this encounter"
--- OUTSIDE RECORDS SUMMARY | ~2019-10-10 | XMS | Encounter Summary ---
Demographics + + + | Address | [address] | | | [place] [address] | + + + | Home Phone [...] Providers + +------+ + | Care Second Helper Name | Role | Phone | + +------+ + PCP | Unavailable | + +------+ + Encounter Details +--------+ + + + + | Date | Type | Department | Care Team | Description | +--------+ + + + + | 06/26/ | Respiratory | | Other, Faculty | | | 2006 | Therapy | | [phone] | | +--------+ + + + + [...] RADHA ALONZO | [address] | [place], [place] | | | DIAGNOSTICS - | [address] | [address] | | | PULMONARY FUNCTION | | | | + + + + + documented in this encounter Visit Diagnoses Not on filedocumented in this encounter"
--- OUTSIDE RECORDS SUMMARY | ~2019-10-10 | XMS | Encounter Summary ---
Demographics + + + | Address | [address] | | | [place] [address] | + + + | Home Phone [...] Team Providers + +------+ + | Care Psychology Lecturer Name | Role | Phone | + +------+ + | No, Physician | PCP | Unavailable | + +------+ + Encounter Details +--------+ + + + + | Date | Type | Department | Care Team | Description | +--------+ + + + + | 01/03/ | [facility] | [facility] | Shay Dietz | | | 2013 | Encounter | MED CTR XRAY [address] | [address], [address] | | | | | [place] | [place] | | | | | [place] [address] | [address] | | | | | [phone] | | | +--------+ + + + [...] [place] | | | | | | [address] | | | | | | | | +--------+---------+ + + + documented as of this encounter Visit Diagnoses Not on filedocumented in this encounter"
--- OUTSIDE RECORDS SUMMARY | ~2019-10-10 | XMS | Encounter Summary ---
Demographics + + + | Address | [address] | | | [place] [address] | + + + | Home Phone [...] + +------+ + | Care Child Welfare Caseworker Name | Role | Phone | [...] | pain with | [address] | [address] | | | | | right-sided | [place] | Phone: | | | | | sciatica | [address] | [phone] | | | | | Facet | Phone: | Fax: | | | | | arthritis of | [phone] | [phone] | | | | | lumbar | Fax: | | | | | | region | [phone] | | | | | | Adolescent [...] | | | [place], | [address] | | | | | Trochanteric | [place], | [place], | | | | | bursitis of | PA-C [address] | [place] | | | | | right hip | [address] | [address] | | | | | Procedures | [place] | Phone: | | | | | [place] | [address] | [phone] | | | | | Joint | Phone: | Fax: | | | | | Injection | [phone] | [phone] | | | | | Right | Fax: | | | | | | | [phone] | | +--------+--------+ + + + + [...] + + | 02/08/ | Office | [facility] [place] | Shiracz, | Chronic bilateral | | 2017 | Visit | PHYSIATRY [address] | [address] | low back pain with | | | | [address] [place], | [address] [place], | right-sided sciatica | | | | [place] [address] | [place] [address] | (Primary Dx); Facet | | | | [phone] | [phone] | arthritis of lumbar | | | [...] of blood sugars if you are diabetic. predatory animal exterminator risk can lead to osteoporosis which [...] of the procedure you must provide a clark driver to take you home. For all [...] working more h ours due to the [employer] up. Her pain back is worse [...] deficits with short or nursing home memory. 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 Unfortunately she lola nues to have significant [...] [place] | | | | | | [address] | | | | | | | [...] Trochanteric Bursitis ICD-10 Code M47.816 and ICD-10 Cavalier | [facility] | | Harshal Rubio presents [...] + | Performing | Address | City/State/[facility] | Phone Number | | Organization | | | | + + + + + | [facility] | [address] | [place], [place] | [phone] | | [facility] | | [address] | | | - IMAGING | | [...]
--- OUTSIDE RECORDS SUMMARY | ~2019-10-10 | XMS | Encounter Summary ---
Demographics + + + | Address | [address] | | | [place] [address] | + + + | Home Phone [...] Team Providers + +------+ + | Care Historical Interpreter Name | Role | Phone | + [...] | | | | | Jul[place], | | | | | | [place] [address] | | | +--------+ + + + [...]
--- OUTSIDE RECORDS SUMMARY | ~2019-10-10 | XMS | Encounter Summary ---
Demographics + + + | Address | [address] | | | [place] [address] | + + + | Home Phone [...] Team Providers + +------+ + | Care Podiatrist Name | Role | Phone | + [...] | | | | CENTER [address] | [place] | Dx) | | | | [place] | [id number] | | | | | [address] | | | | | | [phone] | | | +--------+ + + + [...] [place] | | | | | | [address] | | | | | | | [...]
--- OUTSIDE RECORDS SUMMARY | ~2019-10-10 | XMS | Encounter Summary ---
Demographics + + + | Address | [address] | | | [place] [address] | + + + | Home Phone [...] Providers + +------+ + | Care Senior Reliability Engineer Name | Role | Phone | + +------+ + | Wendi Aiken | PCP | | + +------+ + Encounter Details +--------+ + + + + | Date | Type | Department | Care Team | Description | +--------+ + + + + | 04/07/ | Imaging | [facility] | Provider, | | | 2018 | Exam | MED CTR EXTERNAL | [address] | | | | | IMAGING | [place] | | | | | [phone] | [place] [address] | | +--------+ + + + + [...] [place] | | | | | | [address] | | | | | | | [...]
--- OUTSIDE RECORDS SUMMARY | ~2019-10-10 | XMS | Encounter Summary ---
Demographics + + + | Address | [address] | | | [place] [address] | + + + | Home Phone [...] Providers + +------+ + | Care Veneer Matcher Name | Role | Phone | + [...] | [address] | [place], [address] | | | | | [address] [place], [place] | [place], [place] | | | | | [address] | [address] | | | | | [phone] | | | +--------+ + + + [...] [place] | | | | | | [address] | | | | | | | | +--------+---------+ + + + documented as of this encounter Visit Diagnoses Not on filedocumented in this encounter"
--- OUTSIDE RECORDS SUMMARY | ~2019-10-10 | XMS | Encounter Summary ---
Demographics + + + | Address | [address] | | | [place] [address] | + + + | Home Phone [...] Team Providers + +------+ + | Care Shale Processing Technician Name | Role | Phone | + +------+ + | Wendi Aiken | PCP | | + +------+ + Encounter Details +--------+ + + + + | Date | Type | Department | Care Team | Description | +--------+ + + + + | 07/12/ | Hospital | [facility] | Sj Valdes MD | Left lumbar | | 2017 | Encounter | MED CTR XRAY [address] | [address] | radiculopathy; DISC | | | | [place] | [place] [address] | DISEASE, LUMBAR; | | | | [place] [address] | [phone] | Back pain, | | | | [phone] | | unspecified back | | | [...] [place] | | | | | | [address] | | | | | | | [...]
--- OUTSIDE RECORDS SUMMARY | ~2019-10-10 | XMS | Encounter Summary ---
Demographics + + + | Address | [address] | | | [place] [address] | + + + | Home Phone [...] Providers + +------+ + | Care Pipe Turner Name | Role | Phone | [...] + + | 11/01/ | Telephone | [facility] | Shay Dietz | Medication Problem | | 2012 | | PHYSIATRY [address] | [address], [address] | | | | | [place], | [place], [place] | | | | | [place] [address] | [address] | | | | | [phone] | | | +--------+ + + + [...] [place] | | | | | | [address] | | | | | | | | +--------+---------+ + + + documented as of this encounter Visit Diagnoses + + | Diagnosis | + + | Back pain - Primary Backache, unspecified | + + documented in this encounter"
--- OUTSIDE RECORDS SUMMARY | ~2019-10-10 | XMS | Encounter Summary ---
Demographics + + + | Address | [address] | | | [place] [address] | + + + | Home Phone [...] Providers + +------+ + | Care Certified Legal Secretary Specialist Name | Role | Phone | [...] at [facility] [address] | [address] [address] [facility] | | | | | [place] Mailcode: | [facility] [address], | | | | | [address] | [place] [address] | | | | | Health and Healing, | [phone] | | | | | [facility] | | | | | | Floor [place], [place] | | | | | | [address] | | | | | | [phone] | | | +--------+ + + + [...]
--- OUTSIDE RECORDS SUMMARY | ~2019-10-10 | XMS | Encounter Summary ---
Demographics + + + | Address | [address] | | | [place] [address] | + + + | Home Phone [...] Team Providers + +------+ + | Care Save All Operator Name | Role | Phone | [...] Chronic low | [place], | [address] | | | | | back pain | Shay Mukherjee MD | [place], | | | | | Lumbar | [address] | [place] | | | | | radiculopath | [place] | [address] | | | | | y | [place], [place] | Phone: | | | | | Procedures | [address] | [phone] | | | | | MRI Lumbar | Phone: | Fax: | | | | | Spine wo | [phone] | [phone] | | | | | Contrast | Fax: | | | | | | MRI | [phone] | | +--------+--------+ + + + + [...] Chronic low | [place], | [address] | | | | | back pain | Shay Mukherjee MD | [place], | | | | | Lumbar | [address] | [place] | | | | | radiculopath | [place] | [address] | | | | | y | [place], [place] | Phone: | | | | | Procedures | [address] | [phone] | | | | | MRI Lumbar | Phone: | Fax: | | | | | Spine wo | [phone] | [phone] | | | | | Contrast | Fax: | | | | | | MRI | [phone] | | +--------+--------+ + + + + Encounter Details +--------+ + + + + | Date | Type | Department | Care Team | Description | +--------+ + + + + | 04/12/ | Hospital | [facility] | Shay Dietz | Chronic low back | | 2013 | Encounter | MED CTR MRI [address] | T, [address] | pain; Lumbar | | | | [place], | ST [place], [place] | radiculopathy | | | | [place] [address] | [address] | | | | | [phone] | | | +--------+ + + + [...] [place] | | | | | | [address] | | | | | | | [...] + | MISCELLANEOUS LAB | | | [phone] | + +---------+ + + | MISCELANIOUS LAB | | | [phone] | + +---------+ + + documented in this encounter Visit Diagnoses + + | Diagnosis | + + | Chronic low back pain Lumbago | + + | Lumbar radiculopathy Thoracic or lumbosacral neuritis or radiculitis, unspecified | + + documented in this encounter"
--- OUTSIDE RECORDS SUMMARY | ~2019-10-10 | XMS | Encounter Summary ---
Demographics + + + | Address | [address] | | | [place] [address] | + + + | Home Phone [...] Team Providers + +------+ + | Care Brushing Machine Operator Name | Role | Phone | + +------+ + | Wendi Aiken | PCP | | + +------+ + Encounter Details +--------+ + + + + | Date | Type | Department | Care Team | Description | +--------+ + + + + | 05/10/ | Imaging | [facility] | Provider, | | | 2018 | Exam | MED CTR EXTERNAL | [address] | | | | | IMAGING | [place] [place] | | | | | [phone] | [place] [address] | | +--------+ + + + + [...] [place] | | | | | | [address] | | | | | | | [...]
--- OUTSIDE RECORDS SUMMARY | ~2019-10-10 | XMS | Encounter Summary ---
Demographics + + + | Address | [address] | | | [place] [address] | + + + | Home Phone [...] Team Providers + +------+ + | Care Shear Setter Name | Role | Phone | [...] | | 2012 | | [facility] | [place], [place] | | | | | [address] | [address] | | | | | [place] Chamorro | | | | | | Bandar/[id number] [facility] | | | | | | [facility] | | | | | | [place] [address] | | | | | | [phone] | | | +--------+ + + + [...]
--- OUTSIDE RECORDS SUMMARY | ~2019-10-10 | XMS | Encounter Summary ---
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 | PPS (pelvic | MD Britta | [address] | | | | | pain | [address] | [address] | | | | | syndrome) | [facility] | Mailcode: | | | | | Procedures | Rd | [facility] | | | | | CONSULT TO | [facility] [place] | for Health | | | | | PAIN CENTER | [address] | and Healing, | | | | | | Phone: | Building | | | | | | [phone] | 1,15th Floor | | | | | | Fax: | [place], [place] | | | | | | [phone] | [address] | | | | | | | Phone: | | | | | | | [phone] | | | | | | | Fax: | | | | | | | [phone] | +--------+--------+ + + + + Reason [...] | | | | | symptom | [place] | [place] | | | | | associated | [place] | [id number] | | | | | with female | Urology [address] | [facility] | | | | | genital | [address] | [place], | | | | | organs | [address] [place], | [place] [address] | | | | | Unspecified | [place] [address] | Phone: | | | | | urinary | Phone: | [phone] | | | | | incontinence | [phone] | Fax: | | | | | | Fax: | [phone] | | | | | | [phone] | | +--------+--------+ + + + + Encounter Details +--------+---------+ + + + | Date | Type | Department | Care Team | Description | +--------+---------+ + + + | 11/29/ | [facility] | [facility] | Britta Hankins MD | PPS (pelvic pain | | 2014 | Visit | [facility] | [address] | syndrome) (Primary | | | | [address] | Juliana [place], | Dx); Depression with | | | | [address] [address] | [place] [address] | suicidal ideation; | | | | Bandar/[id number] | [phone] | Recurrent UTI; | | | | [facility], | | Hypoestrogenism | | | | [place] [address] | | | | | | [phone] | | | +--------+---------+ + + + [...] 4. Referral to pain service here at [facility] 5. Let me know if you would [...] so sadiq Lizzy. He lives here in [place] so he is not fully aware of her recent health issues but billy e did help in providing some of his mother's past history. 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 Long gold, she was hospitalized at [facility] in 2005 for a Vicodin overdose. At [...] speaker, a good grandmother". Her physicians in [place] and elsewhere will not pre scribe pain [...] until she was able to leave her [employer] house at age 20. Her aunt recently [...] estrogenization of the vulvova ginal tissues; negative [employer] JOGGER; no hypospadias of the urethra; + tenderness [...] F/U with Dr. Stover on return to [place]. I am Christine Monterroso functioning as a scribe for Dr. Britta Hankins. Christine Monterroso [facility] [address] [facility] [place] [address] I have reviewed, verified, and amended the [...] for afternoon appointments. Britta Hankins M.D., FACS Art Editor [facility] documented in this encoun [...]
--- OUTSIDE RECORDS SUMMARY | ~2019-10-10 | XMS | Encounter Summary ---
Demographics + + + | Address | [address] | | | [place] [address] | + + + | Home Phone [...] Providers + +------+ + | Care Aircraft Skin Burnisher Name | Role | Phone | [...] + + | 08/16/ | Telephone | [facility] | Shay Dietz | Appointment | | 2012 | | PHYSIATRY [address] | [address] | | | | | [place], | [place], [place] | | | | | [place] [address] | [address] | | | | | [phone] | | | +--------+ + + + [...] [place] | | | | | | [address] | | | | | | | | +--------+---------+ + + + documented as of this encounter Visit Diagnoses Not on filedocumented in this encounter"
--- OUTSIDE RECORDS SUMMARY | ~2019-10-10 | XMS | Encounter Summary ---
Demographics + + + | Address | [address] | | | [place] [address] | [...] Team Providers + +------+ + | Care Label Printer Name | Role | Phone | [...] | [address] | [place] [address] | | | | | [place] | [phone] | | | | | [address] | | | | | | [phone] | | | +--------+ + + + [...] [place] | | | | | | [address] | | | | | | | | +--------+---------+ + + + documented as of this encounter Visit Diagnoses Not on filedocumented in this encounter"
--- OUTSIDE RECORDS SUMMARY | ~2019-10-10 | XMS | Encounter Summary ---
Demographics + + + | Address | [address] | | | [place] [address] | + + + | Home Phone [...] Providers + +------+ + | Care Manager Wireless Name | Role | Phone | + [...] [address] | | | | | [place], | [address] [place] | | | | | [place] [address] | [place] [address] | | | | | [phone] | [phone] | | | | | | | [...] [place] | | | | | | [address] | | | | | | | | +--------+---------+ + + + documented as of this encounter Visit Diagnoses Not on filedocumented in this encounter"
[~2019-10-10 18:42] MED LIST changes: +CALCIUM500 MG PO; +CEFPODOXIME PR200 MG PO; +DIGOX125 MCG PO; +DOK PLUS TABLE1 EACH PO; +FENTANYL1 EAC4 TD; +METHOCARBAMOL500 MG PO; +NITROFURANTOIN100 M1 PO; +POLYETHYLENE GL17 GM PO; +ROPINIROLE HCL2 MG PO; +VITAMIN D22000 UNIT PO; +WARFARIN SODIUM2 MG PO; +XARELTO20 MG PO
--- OUTSIDE RECORDS SUMMARY | 2019-10-10 18:44 | XMS ---
PreManage Notification: RONALD FLORIAN Security Meeting Specialist Events No recent Security Events currently on file CRITERIA MET - Group Notification - 6 ED Visits in 6 Months - [facility] - Has Care Guidelines - [facility] - 2 Visits in 30 Days CARE PROVIDERS EVELIO IAKEN 05/23/2018-Current PHONE: Unknown [facility]: Pulmonary Disease 02/06/2019-Current PHONE: Unknown [facility] Current PHONE: [phone] Alan Cesar MD PHONE: Unknown [facility] has no Care Guidelines for this patient. Care History Medical/Surgical 09/25/2019 [facility] Patient aware of PCP appt. on 10/17/2019 and of the walk in clinic, but stated she used ED because she has respiratory issues with fever and was too weak to walk. 08/08/2019 [facility] - PATIENT HAS AN APT WITH PCP DR DE LA PAZ ON 10/17/19 02/06/2019 [facility] - Patient is currently established with [facility]. If patient is seen in the ED during business hours. Please contact CHWs at [facility]. Care Recommendation: This patient has had 5 [...] care. E.D. VISIT COUNT (12 MO.) 1 [place] [facility]. 8 [facility] H. TOTAL 9 NOTE: Visits indicate total known visits. ED/UCC VISIT TRACKING (12 MO.) 10/10/2019 18:43 [facility] TYPE: Emergency COMPLAINT: - ELEVATED HEART RATE 09/28/2019 11:50 [facility] TYPE: Emergency COMPLAINT: - CHEST PAIN 09/24/2019 15:43 [facility] TYPE: Emergency COMPLAINT: - NAUSEA, VOMITING, DIARRHEA DIAGNOSES: - Other assistant terminal manager (current) 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 - Bipolar disorder, unspecified - Nausea with vomiting, unspecified - Chronic obstructive pulmonary disease, unspecified - Urinary tract infection, site not specified - prison (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 of systemic steroids - assistant terminal manager (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 of opiate analgesic - Diarrhea, unspecified - 1 Type 2 diabetes mellitus without complications - Allergy status to oth drug/meds/biol subst status 08/09/2019 11:06 [facility] TYPE: Emergency COMPLAINT: - POST OP PROBLEM DIAGNOSES: - assistant terminal manager (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 of opiate analgesic - Chronic obstructive pulmonary disease, unspecified - Allergy status to oth drug/meds/biol subst status - 1 Type 2 diabetes mellitus without complications - Low back pain - Major depressive disorder, single episode, unspecified - Other chronic pain - prison (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 of systemic steroids - Other acute postprocedural pain - Other senior care (current) 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 08/07/2019 22:09 [facility] TYPE: Emergency COMPLAINT: - BACK PAIN DIAGNOSES: - Other assistant terminal manager (current) 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 - Encounter for change [...] drug/meds/biol subst status - Fasciculation - Other assistant terminal manager (current) 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 - 1 Type 2 diabetes mellitus without complications - Bipolar disorder, unspecified - prison (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 of opiate analgesic - Major depressive disorder, single episode, unspecified 02/05/2019 05:23 [facility] TYPE: Emergency COMPLAINT: - ABD PAIN DIAGNOSES: - Allergy status to oth drug/meds/biol subst status - Bipolar disorder, unspecified - Chronic obstructive pulmonary disease, unspecified - 1 Type 2 diabetes mellitus without complications - Dysuria - Other senior care (current) 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 - Urinary tract infection, site not specified 10/14/2018 12:13 [facility] TYPE: Emergency COMPLAINT: - FALL/RIB PAIN DIAGNOSES: - Chronic obstructive pulmonary disease, unspecified - 1 Type 2 diabetes mellitus without complications - Striking against or struck by other objects, init encntr - Other chronic pain - Bipolar disorder, unspecified - Other senior care (current) 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 - Contusion of left front wall of thorax, initial encounter - Allergy status to oth drug/meds/biol subst status - Low back pain INPATIENT VISIT TRACKING (12 MO.) 09/28/2019 14:01 [facility] TYPE: [facility] COMPLAINT: - PNEUMONIA DIAGNOSES: - Hypo-osmolality and hyponatremia - Other specified anxiety disorders - Hypothyroidism, unspecified - Chronic pain syndrome - Hypovolemia - Low back pain - Other assistant terminal manager (current) 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 - Paroxysmal atrial fibrillation - Other psychoactive substance dependence, uncomplicated - Other psychoactive substance dependence, uncomplicated - Low back pain - Allergy status to oth drug/meds/biol subst status - Other assistant terminal manager (current) 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 - Pneumonia due to Streptococcus pneumoniae - Allergy status to oth drug/meds/biol subst status - Hypothyroidism, unspecified - Chr obstructive pulmon disease with (acute) lower resp infct - Paroxysmal atrial fibrillation - Hypovolemia - Other specified anxiety disorders - Chronic pain syndrome - Hypo-osmolality and hyponatremia - Restless legs syndrome - Restless legs syndrome - Pneumonia, unspecified organism - Pneumonia due to Streptococcus pneumoniae - Chr obstructive pulmon disease with (acute) lower resp infct [email or web address]
[2019-10-10] MEDS ORDERED: METOPROLOL SUCC25 MG PO (20:57)
--- NOTE | 2019-10-10 22:54 | EKG ---
[facility] [address] [place], [place] [address] Signed Normal sinus rhythm Normal ECG When compared with ECG of 28-SEP-2019 12:18, No significant change was found Confirmed by REJI GONSALEZ MD ([id number] on 10/10/2019 10:54:25 PM Electronically Signed By: REJI GONSALEZ MD 10/10/19 2254 PATIENT NAME: RONALD FLORIAN Electrocardiogram DATE OF : 49 PHYSICIAN: REJI GONSALEZ MD REPORT #: [id number] REPORT IS CONFIDENTIAL AND NOT TO BE RELEASED WITHOUT AUTHORIZATION
== END 2019-10-10 21:05 | disposition home or self-care (01) ==
LOC: ED 18:42
DX: R07.9 Chest pain, unspecified (principal); E11.9 Type 2 diabetes mellitus without complications; J44.9 Chronic obstructive pulmonary disease, unspecified; F32.9 Major depressive disorder, single episode, unspecified; Z88.8 Allergy status to other drugs, medicaments and biological substances; Z79.899 Other long term (current) 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
CPT/HCPCS: 71045; 80053; 80162; 81001; 84484; 85025; 85610; 93005; 93010; 96361; 96374; 99285-25; J2405; J7030

== ENCOUNTER 2020-03-05 16:32 | Emergency (ER) | payer MEDICARE, OTHER ==
[~2020-03-05] VITALS: Ht 154.9 cm; Wt 51.7 kg
--- NOTE | ~2020-03-05 | STRESS ---
[facility] [address] [facility] [place], [place] [address] Draft DATE OF STUDY: 03/05/2020 PROCEDURE: EKG exercise stress test. INDICATION: Abnormal EKG. PAST MEDICAL HISTORY: Includes CVA, type 2 diabetes, paroxysmal AFib. CURRENT MEDICATIONS: 1. Eliquis. 2. Metoprolol. 3. Temazepam. 4. . RESTING DATA: Resting EKG demonstrates normal sinus rhythm at 60 beats per minute, . The resting blood pressure is 135/63. PROCEDURE IN DETAIL: The patient was stressed according to the Mina protocol for 5 minutes and 50 seconds achieving a work level of 7.0 minutes. Resting heart rate was 60 beats per minute, which jayy to a maximum heart rate of 190 beats per minute. This value represents 128% of the patient's maximum age predicted heart rate. Resting blood pressure was 135/63, which jayy to a maximum blood pressure of 154/68. Exercise was stopped due to shortness of breath, the patient had reportedly collapsed. Within about 1 minute, the patient became unresponsive and a rapid response was called. During exercise, there was no ischemic EKG changes. There is no chest pain reported with exertion. During recovery, and during the rapid response, the patient was in normal sinus rhythm with occasional PVCs and no other significant arrhythmias detected during the episode. CONCLUSION: 1. This is a negative EKG exercise stress test for stress-induced ischemia. The patient did collapse after 5 minutes and 50 seconds of exercise and rapid response was called. There were no ischemic EKG changes and no arrhythmias aside from severe PVCs during the rapid response. 2. Fair exercise capacity for age and gender. 3. No ischemic EKG changes with exercise. 4. Shortness of breath was reported with exercise, but no chest pain was reported. 5. Pace treadmill score is positive 5 inferring a low risk study, however, given the patient collapse shortly after exercise, this may be elevated due to this. Zuleyka Castillo DO LF/MODL PATIENT NAME: ROSANA KENYONALEXANDRELEIGHANNRONALD LEE Stress test DATE OF : 49 PHYSICIAN: REPORT #: [id number] REPORT IS CONFIDENTIAL AND NOT TO BE RELEASED WITHOUT AUTHORIZATION [address] [place] [address] Draft /[id number] PATIENT NAME: ROSANA HANNAHRONALD JESSI Stress test DATE OF : 49 PHYSICIAN: REPORT #: [id number] REPORT IS CONFIDENTIAL AND NOT TO BE RELEASED WITHOUT AUTHORIZATION
--- OUTSIDE RECORDS SUMMARY | ~2020-03-05 | XMS | Encounter Summary ---
Demographics + + + | Address | [address] | | | [place] [address] | + + + | Home Phone | | + + + | Preferred Language | Unknown | + + + | Marital Status | | + + + | Uatsdin Affiliation | 1013 | + + + | Race | Unknown | + + + | Ethnic Group | Unknown | + + + Author + + + | Author | [facility] | | | and [place] | + + + | Organization | [facility] | | | and [place] | + + + | Address | Unknown | + + + | Phone | Unavailable | + + + Support + + +---------+ + | Name | Relationship | Address | Phone | + + +---------+ + | Giuseppe Menchaca | ECON | Unknown | | + + +---------+ + | Nathalia Koes | ECON | Unknown | | + + +---------+ + Care Team Providers + +------+ + | Care Echo Vascular Tech Name | Role | Phone | + +------+ + PCP | Unavailable | + +------+ + Encounter Details +--------+ + + + + | Date | Type | Department | Care Team | Description | +--------+ + + + + | 12/08/ | Hospital | [facility] | | | | 1994 - | Encounter | MED [facility] GENER[facility] PSY | | | | | | CONV DEPT [address] | | | | 12/18/ | | [place], | | | | 1994 | | [place] [address] | | | | | | [phone] | | | +--------+ + + + + Social History + +-------+ +--------+------+ | Tobacco Use | Types | Packs/Day | Years | Date | | | | | Used | | + +-------+ +--------+------+ | Never Assessed | | | | | + +-------+ +--------+------+ + + + | Sex Assigned at [...] + + documented as of this encounter Plan of Treatment +--------+---------+ + + + | Date | Type | Specialty | Care Team | Description | +--------+---------+ + + + | 03/17/ | Office | Pain Medicine | Denys Sibley, | | | 2019 | Visit | | DO [address] | | | | | | [address] [place] | | | | | | [address] | | | | | | | | +--------+---------+ + + + | 04/03/ | Office | Cardiology | Zuleyka Castillo DO | | | 2020 | Visit | | [address] | | | | | | [place] | | | | | | [address] | | | | | | | | +--------+---------+ + + + documented as of this encounter Visit Diagnoses Not on filedocumented in this encounter"
--- OUTSIDE RECORDS SUMMARY | ~2020-03-05 | XMS | Encounter Summary ---
Demographics + + + | Address | [address] | | | [place] [address] | + + + | Home Phone | | + + + | Preferred Language | Unknown | + + + | Marital Status | | + + + | Congregation Affiliation | 1013 | + + + | Race | Unknown | + + + | Ethnic Group | Unknown | + + + Author + + + | Author | [facility] | | | and [place] | + + + | Organization | [facility] | | | [...] Team Providers + +------+ + | Care Entertainer Or Variety Artist Name | Role | Phone | + +------+ + | Concepción Gallardo NP | PCP | | + +------+ + Reason for Visit +--------+ + | Reason | Comments | +--------+ + | Letter | | +--------+ + Encounter Details +--------+ + + + + | Date | Type | Department | Care Team | Description | +--------+ + + + + | 12/24/ | Telephone | [facility] | Sj Valdes MD | Letter | | 2014 | | NEUROSURGERY [address] | | | | | [address] | [place] [address] | | | | | [place] | [phone] | | | | | [address] | | | | | | [phone] | | | +--------+ + + + [...] [place] | | | | | | [id number] | | | | | | | | +--------+---------+ + + + | 04/03/ | Office | Cardiology | Zuleyka Castillo DO | | | 2019 | Visit | | [address] | | | | | | [place] | | | | | | [address] | | | | | | | | +--------+---------+ + + + documented as of this encounter Visit Diagnoses Not on filedocumented in this encounter"
--- OUTSIDE RECORDS SUMMARY | ~2020-03-05 | XMS | Clinical Summary ---
Demographics + + + | Address | [address] | | | [place] [address] | + + + | Home Phone | | + + + | Preferred Language | Unknown | + + + | Marital Status | | + + + | Cheondoism Affiliation | 1013 | + + + | Race | Unknown | + + + | Ethnic Group | Unknown | + + + Author + + + | Author | [facility] (Historical as of | | | 06-16-19) | + + + | Organization | [facility] (Historical as of | | | [...] Team Providers + +------+ + | Care Propulsion Engineer Name | Role | Phone | + [...] +---------+------+------+-------+ | | Apply to affected | 56963 g | 3 | 04/30 | 04/30 [...] Overview: Added automatically from request for surgery [id number] | + + + + + | Radiculopathy of thoracolumbar region | 06/07/2019 | + + + + + | Overview: Added automatically from request for surgery [id number] | + + + + + | Radiculopathy, lumbosacral region | 06/07/2019 | + + + + + | Overview: Added automatically from request for surgery [id number] | + + + + + | Spondylosis without myelopathy or radiculopathy, cervical region | 03/20/2019 | + + + + + | Overview: Added automatically from request for surgery [id number] | + + + + + | Spondylosis without myelopathy or radiculopathy, lumbosacral | 03/20/2019 | | region | | + + + + + | Overview: Added automatically from request for surgery [id number] | + + + + + | Chronic bilateral low back pain without sciatica | 03/20/2019 | + + + + + | Overview: Added automatically from request for surgery [id number] | + + + + + | Strain of lumbar region | 02/25/2019 | + + + + + | Overview: Added automatically from request for surgery [id number] | + + + + + | Lumbar region somatic dysfunction | 02/25/2019 | + + + + + | Overview: Added automatically from request for surgery [id number] | + + + + + | Chronic low back pain with sciatica | 02/25/2019 | + + + + + | Overview: Added automatically from request for surgery [id number] | + + + + + | Intervertebral disc disorders with radiculopathy, lumbosacral | 02/25/2019 | | region | | + + + + + | Overview: Added automatically from request for surgery [id number] | + + + + + | Spinal stenosis of lumbosacral region | 02/25/2019 | + + + + + | Overview: Added automatically from request for surgery [id number] | + + + + + | [...] Overview: Added automatically from request for surgery [id number] | | Problem List 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 Utility | + + + + + [...] | | | | (Season Ended) | 0 | | | + + + + [...] | Back | | | 2019 | 22015 | | 06/13/2018 by Alfredo Casillas, | | | | | | / | | DO | | | | | | /[id number] | | | | | | | | 2 | + +------+-------+ +--------+--------+--------+ | Stim Nrv Lead Octrode 60cm - | | | [facility] | | 11/23/ | [id number] | | [id number]: Qty: 1 on | | | MEDICAL - | | 2020 | S | | 03/28/2019 by Sonja, | | | STJU | | | /[id number] | | DO Alfredo | | | [...] +------+-------+ + | MEDICARE | MEDICA | [id number] | | | [address] | | | RE | | | | [place] [address] | | | IP-OP | | | | | + +--------+ +------+-------+ + | COMMERCIAL OTHER | COMMER | [id number] | | | | | | CIAL [...] [address] | | JOSEPH BOWEN | antonio/Benji | | 1945 | [phone] | [place] [address] | | | jose | | | [phone] | | + +--------+ +--------+ + +
--- OUTSIDE RECORDS SUMMARY | ~2020-03-05 | XMS | Encounter Summary ---
Demographics + + + | Address | [address] | | | [place] [address] | + + + | Home Phone | | + + + | Preferred Language | Unknown | + + + | Marital Status | | + + + | Zoroastrianism Affiliation | 1013 | + + + [...] Team Providers + +------+ + | Care Supervisory It Specialist Name | Role | Phone | + +------+ + | Miquel Calhoun MD | PCP | | + +------+ + Reason for Visit +--------+ + | Reason | Comments | +--------+ + | Other | Called patient to discuss options regarding having another | | | injection or having a MBB or RFA | +--------+ + Encounter Details +--------+ + + + + | Date | Type | Department | Care Team | Description | +--------+ + + + + | 07/03/ | Telephone | [facility] | Shay Dietz | Other (Called | | 2012 | | PHYSIATRY [address] | [address] | patient to discuss | | | | [address] | [facility] | options regarding | | | | [place] | [address] | having another | | | | [address] | | injection or having | | | | [phone] | | a MBB or RFA) | +--------+ + + + + Social [...] [place] | | | | | | [address] | | | | | | | | +--------+---------+ + + + | 04/03/ | Office | Cardiology | Zuleyka Castillo DO | | | 2019 | Visit | | [address] | | | | | | [place] | | | | | | [address] | | | | | | | | +--------+---------+ + + + documented as of this encounter Visit Diagnoses Not on filedocumented in this encounter"
--- OUTSIDE RECORDS SUMMARY | ~2020-03-05 | XMS | Encounter Summary ---
Demographics + + + | Address | [address] | | | [place] [address] | + + + | Home Phone | | + + + | Preferred Language | Unknown | + + + | Marital Status | | + + + | Presybeterian Affiliation | 1013 | + + + | Race | Unknown | + + + | Ethnic Group | Unknown | + + + Author + + + | Author | [facility] | | | and [place] | + + + | Organization | [facility] | | | [...] Team Providers + +------+ + | Care Shoe Fitter Name | Role | Phone | + +------+ + | Romy De La Paz MD | PCP | | + +------+ + Reason for Visit + + + | Reason | Comments | + + + | Follow-up | | + + + Encounter Details +--------+ + + + + | Date | Type | Department | Care Team | Description | +--------+ + + + + | 08/27/ | Telephone | [facility] | Denys Sibley, | Follow-up | | 2019 | | [facility] | DO [address] | | | | | [address] [place], [place] | | | | | [address] | [address] | | | | | [place], [place] | | | | | | [address] | | | | | | [phone] | | | +--------+ + + + [...] [place] | | | | | | [address] | | | | | | | | +--------+---------+ + + + | 04/03/ | Office | Cardiology | Zuleyka Castillo DO | | | 2020 | Visit | | [address] | | | | | | [place] | | | | | | [address] | | | | | | | | +--------+---------+ + + + documented as of this encounter Visit Diagnoses Not on filedocumented in this encounter"
--- OUTSIDE RECORDS SUMMARY | ~2020-03-05 | XMS | Encounter Summary ---
Demographics + + + | Address | [address] | | | [place] [address] | + + + | Home Phone [...] Author + + + | Author | [facility] | + + + | Organization | [facility] | + + + | Address | Unknown | + + + | Phone | Unavailable | + + + Support + + +---------+ + | Name | Relationship | Address | Phone | + + +---------+ + | Royce Menchaca | ECON | Unknown | | + + +---------+ + Care Team Providers + +------+ + | Care Cloth Worker Name | Role | Phone | + [...] COURTNEY Andrews | | | | | [place], [place] | [place], [place] | | | | | [address] | [address] | | | | | [phone] | [phone] | | | | | | | [...] | + + + + + | [facility] DEPARTMENT OF | [address] | [place] [address] | | | PATHOLOGY | [address] | | | + + + + + | [facility] DEPARTMENT OF | [address] | [place] [address] | | | PATHOLOGY | [address] [...] | + + + + + | [facility] | [facility] [facility] [address] | [place] [address] | | | PATHOLOGY | [address] | | | + + + + + | [facility] | [address] [place] [address] | [place] [address] | | | PATHOLOGY | [address] [...] | + + + + + | [facility] DEPARTMENT OF | [address] | [place] [address] | | | PATHOLOGY | [address] | | | + + + + + | [facility] DEPARTMENT OF | [address] | [place] [address] | | | PATHOLOGY | [address] [...] DEPARTMENT OF | [address] | [place] [address] | | | PATHOLOGY | [address] | | | + + + + + | [facility] DEPARTMENT OF | [address] | [place] [address] | | | PATHOLOGY | [address] [...] | + + + + + | [facility] DEPARTMENT OF | [address] | [place] [address] | | | PATHOLOGY | [address] | | | + + + + + | [facility] DEPARTMENT OF | [address] | [place] [address] | | | PATHOLOGY | [address] | | | + + + + + MAGNESIUM, PLASMA (06/30/2006 7:00 AM PDT) + +-------+ + + + | Component | Value | Ref Range | Performed | Pathologist | | | | | At | Signature | + +-------+ + + + | MAGNESIUM,P | 2.3 | 1.8 - 2.5 mg/dL | [facility] | | | LASMA | | [...] | + + + + + | [facility] DEPARTMENT OF | [address] | [place] [address] | | | PATHOLOGY | [address] | | | + + + + + | [facility] DEPARTMENT OF | [address] | [place] [address] | | | PATHOLOGY | [address] | | | + + + + + PHOSPHORUS, PLASMA (06/30/2006 7:00 AM PDT) + +-------+ + + + | Component | Value | Ref Range | Performed | Pathologist | | | | | At | Signature | + +-------+ + + + | PHOSPHORUS, | 3.8 | 2.4 - 4.7 mg/dL | [facility] [...] DEPARTMENT OF | [address] | [place] [address] | | | PATHOLOGY | [address] | | | + + + + + | [facility] DEPARTMENT OF | [address] | [place] [address] | | | PATHOLOGY | [address] [...] DEPARTMENT OF | [address] | [place] [address] | | | PATHOLOGY | [address] | | | + + + + + | [facility] DEPARTMENT OF | [address] | [place] [address] | | | PATHOLOGY | [address] | | | + + + + + CREATININE, URINE (06/30/2006 4:45 AM PDT) + +-------+ + + + | Component | Value | Ref Range | Performed | Pathologist | | | | | At | Signature | + +-------+ + + + | CREATININE | 40.1 | mg/dL | [facility] | | | [...] | + + + + + | [facility] DEPARTMENT OF | [address] | [place] [address] | | | PATHOLOGY | [address] | | | + + + + + | [facility] DEPARTMENT OF | [address] | [place] [address] | | | PATHOLOGY | [address] [...] | + + + + + | [facility] DEPARTMENT OF | [address] | [place] [address] | | | PATHOLOGY | [address] | | | + + + + + | [facility] DEPARTMENT OF | [facility] | [place] [address] | | | PATHOLOGY | [address] [...] DEPARTMENT OF | [address] | [place] [address] | | | PATHOLOGY | [address] | | | + + + + + | [facility] DEPARTMENT OF | [address] | [place] [address] | | | PATHOLOGY | [address] | | | + + + + + PHOSPHORUS QUANT, URINE (06/30/2006 4:45 AM PDT) + +-------+ + + + | Component | Value | Ref Range | Performed | Pathologist | | | | | At | Signature | + +-------+ + + + | PHOSPHORUS | 28.8 | mg/dL | [facility] | | | [facility] | | [...] | + + + + + | [facility] DEPARTMENT OF | [address] | [place] [address] | | | PATHOLOGY | [address] | | | + + + + + | [facility] DEPARTMENT OF | [address] [facility] [facility] | [place] [address] | | | PATHOLOGY | [address] [...] | + + + + + | [facility] | [address] [facility] | [place] [address] | | | PATHOLOGY | [address] | | | + + + + + | [facility] | [address] [facility] | [place] [address] | | | PATHOLOGY | [address] [...] DEPARTMENT OF | [address] | [place] [address] | | | PATHOLOGY | [address] | | | + + + + + | [facility] DEPARTMENT OF | [address] | [place] [address] | | | PATHOLOGY | [address] | | | + + + + + PHOSPHORUS, PLASMA (06/29/2006 5:45 PM PDT) + +-------+ + + + | Component | Value | Ref Range | Performed | Pathologist | | | | | At | Signature | + +-------+ + + + | PHOSPHORUS, | 3.6 | 2.4 - 4.7 mg/dL | [facility] [...] | + + + + + | [facility] DEPARTMENT | [address] [facility] | [place] [address] | | | PATHOLOGY | [address] | | | + + + + + | [facility] DEPARTMENT | [facility] [facility] | [place] [address] | | | PATHOLOGY | [address] [...] | | | | Test performed by [facility] | | | | | | Laboratories. | | | | + + + + + + + + | Specimen | + + | | + + + + + + + | Performing | Address | City/State/Zipcode | Phone Number | | Organization | | | | + + + + + | [facility] | [address] | [place], [place] | | | [facility] | | [phone] | | + + + + + [...] | + + + + + | [facility] | [address] | [place] [address] | | | PATHOLOGY | [address] | | | + + + + + | [facility] | [address] [place] [address] [address] | [place] [address] | | | PATHOLOGY | [address] [...] | + + + + + | [facility] DEPARTMENT | [address] [facility] | [place] [address] | | | PATHOLOGY | [address] | | | + + + + + | [facility] | [address] [facility] | [place] [address] | | | PATHOLOGY | [address] [...] [facility] | [address] | [place], [place] | | | [facility] | | [address] | | + + + + + [...] | | | | | performed at [facility] | | | | | | [facility] | | | | | | Laboratory. | | | | + + + + + + + + | Specimen | + + | | + + + + + + + | Performing | Address | City/State/Zipcode | Phone Number | | Organization | | | | + + + + + | [facility] | [address] | [place] [address] | | | LAB-MICRO | | | [...] | + + + + + | [facility] DEPARTMENT OF | [address] | [place] [address] | | | PATHOLOGY | [address] | | | + + + + + | [facility] DEPARTMENT OF | [address] | [place] [address] | | | PATHOLOGY | [address] [...] + | [facility] DEPARTMENT OF | [address] | [place] [address] | | | PATHOLOGY | [address] | | | + + + + + | [facility] DEPARTMENT OF | [address] [facility] | [place] [address] | | | PATHOLOGY | [address] | | | + + + + + JAIME OATES ONLY (06/29/2006 9:00 AM PDT) + + + [...] + | [facility] DEPARTMENT OF | [address] | [place] [address] | | | PATHOLOGY | [address] | | | + + + + + | [facility] DEPARTMENT OF | [address] | [place] [address] | | | PATHOLOGY | [address] | | | + + + + + LIVER SET (06/29/2006 6:55 AM PDT) + +---------+ + + + | Component | Value | Ref Range | Performed | Pathologist | | | | | At | Signature | + +---------+ + + + | ALBUMIN, | 3.1 (L) | 3.5 - 4.7 g/dL | [facility] | | | PLASMA | | [...] DEPARTMENT OF | [address] | [place] [address] | | | PATHOLOGY | [address] | | | + + + + + | [facility] DEPARTMENT OF | [address] | [place] [address] | | | PATHOLOGY | [address] | | | + + + + + MAGNESIUM, PLASMA (06/29/2006 6:55 AM PDT) + +-------+ + + + | Component | Value | Ref Range | Performed | Pathologist | | | | | At | Signature | + +-------+ + + + | MAGNESIUM,P | 2.1 | 1.8 - 2.5 mg/dL | [facility] | | | LASMA | | [...] | + + + + + | [facility] | [address] | [place] [address] | | | PATHOLOGY | [address] | | | + + + + + | [facility] | [address] | [place] [address] | | | PATHOLOGY | [address] [...] DEPARTMENT OF | [address] | [place] [address] | | | PATHOLOGY | [address] | | | + + + + + | [facility] DEPARTMENT OF | [address] | [place] [address] | | | PATHOLOGY | [address] [...] | + + + + + | [facility] DEPARTMENT OF | [address] [facility] | [place] [address] | | | PATHOLOGY | [address] | | | + + + + + | [facility] DEPARTMENT OF | [address] [facility] | [place] [address] | | | PATHOLOGY | [address] [...] | + + + + + | [facility] DEPARTMENT OF | [address] | [place] [address] | | | PATHOLOGY | [address] | | | + + + + + | [facility] DEPARTMENT OF | [address] | [place] [address] | | | PATHOLOGY | [address] [...] + + | [facility] DEPARTMENT OF | [address] | [place] [address] | | | PATHOLOGY | [address] | | | + + + + + | [facility] DEPARTMENT OF | [address] | [place] [address] | | | PATHOLOGY | [address] | | | + + + + + MAGNESIUM, PLASMA (06/28/2006 7:40 PM PDT) + +-------+ + + + | Component | Value | Ref Range | Performed | Pathologist | | | | | At | Signature | + +-------+ + + + | MAGNESIUM,P | 2.2 | 1.8 - 2.5 mg/dL | [facility] | | | L[facility]MA | | | [...] | + + + + + | [facility] DEPARTMENT | [facility] [facility] [address] | [place] [address] | | | PATHOLOGY | [address] | | | + + + + + | [facility] | [address] [place] [address] | [place] [address] | | | PATHOLOGY | [address] [...] | + + + + + | [facility] DEPARTMENT OF | [address] | [place] [address] | | | PATHOLOGY | [address] | | | + + + + + | [facility] DEPARTMENT OF | [address] [facility] | [place] [address] | | | PATHOLOGY | [address] [...] | + + + + + | [facility] DEPARTMENT OF | [address] | [place] [address] | | | PATHOLOGY | [address] | | | + + + + + | [facility] DEPARTMENT OF | [address] | [place] [address] | | | PATHOLOGY | [address] [...] (H) | 65 - 110 mg/dL | [facility] | | | PLASMA | | [...] | + + + + + | [facility] | [facility] [facility] [address] | [place] [address] | | | PATHOLOGY | [address] | | | + + + + + | [facility] DEPARTMENT OF | [address] [facility] | [place] [address] | | | PATHOLOGY | [address] [...] + | [facility] DEPARTMENT OF | [address] [facility] | [place] [address] | | | PATHOLOGY | [address] | | | + + + + + | [facility] DEPARTMENT OF | [address] [facility] | [place] [address] | | | PATHOLOGY | [address] [...] | + + + + + | [facility] | [address] [facility] | [place] [address] | | | PATHOLOGY | [address] | | | + + + + + | [facility] | [address] [facility] | [place] [address] | | | PATHOLOGY | [address] [...] | + + + + + | [facility] DEPARTMENT OF | [address] | [place] [address] | | | PATHOLOGY | [address] | | | + + + + + | [facility] DEPARTMENT OF | [address] | [place] [address] | | | PATHOLOGY | [address] [...] | + + + + + | [facility] | [facility] [facility] [address] | [place] [address] | | | PATHOLOGY | [address] | | | + + + + + | [facility] | [facility] [facility] | [place] [address] | | | PATHOLOGY | [address] [...] | + + + + + | [facility] DEPARTMENT OF | [address] [facility] | [place] [address] | | | PATHOLOGY | [address] | | | + + + + + | [facility] DEPARTMENT OF | [address] [facility] [facility] [address] | [place] [address] | | | PATHOLOGY | [address] [...] | + + + + + | [facility] DEPARTMENT OF | [address] | [place] [address] | | | PATHOLOGY | [address] | | | + + + + + | [facility] DEPARTMENT OF | [address] | [place] [address] | | | PATHOLOGY | [address] [...] | + + + + + | [facility] | [address] | [place] [address] | | | PATHOLOGY | [address] | | | + + + + + | [facility] | [address] | [place] [address] | | | PATHOLOGY | [address] [...] + + + | Test performed at [facility] | | + + + + + + + + | Performing | Address | City/State/Zipcode | Phone Number | | Organization | | | | + + + + + | [facility] | [address] | [place] [address] | | | LABORATORY | | | [...] + + + | Test performed at [facility] | | + + + + + + + + | Performing | Address | City/State/Zipcode | Phone Number | | Organization | | | | + + + + + | [facility] | [address] [facility] | [place] [address] | | | LABORATORY | | | | + + + + + IOD-ORGANIC BASE CONFIRM (06/27/2006 11:55 AM PDT) + + | Specimen | + + | | + + + + + | Narrative | Performed At | + + + | Test performed at [facility] | [facility] | | | DEPARTMENT OF | | | PATHOLOGY | + + + + + + + + | Performing | Address | City/State/Zipcode | Phone Number | | Organization | | | | + + + + + | [facility] | [address] | [place] [address] | | | PATHOLOGY | [address] | | | + + + + + | [facility] DEPARTMENT OF | [address] | [place] [address] | | | PATHOLOGY | [address] [...] | | | | | performed at [facility] | | | | | | [facility] | | | | | | Laboratory. | | | | + + + + + + + + | Specimen | + + | | + + + + + + + | Performing | Address | City/State/Zipcode | Phone Number | | Organization | | | | + + + + + | [facility] | [address] | [place] [address] | | | LAB-MICRO | | | [...] | uIU/ml | | | | | [facility] | | | | | | Laboratories. | | | | + + + + + + + + | Specimen | + + | | + + + + + + + | Performing | Address | City/State/Zipcode | Phone Number | | Organization | | | | + + + + + | [facility] | [address] | [place] [address] | | | LABORATORY | | | [...] | + + + + + | [facility] | [facility] [facility] | [place] [address] | | | PATHOLOGY | [address] | | | + + + + + | [facility] DEPARTMENT OF | [facility] [facility] | [place] [address] | | | PATHOLOGY | [address] [...] | + + + + + | [facility] | [address] [facility] | [place] [address] | | | PATHOLOGY | [address] | | | + + + + + | [facility] | [address] [facility] [facility] | [place] [address] | | | PATHOLOGY | [address] [...] | + + + + + | [facility] DEPARTMENT OF | [address] [facility] [facility] | [place] [address] | | | PATHOLOGY | [address] | | | + + + + + | [facility] DEPARTMENT OF | [address] [facility] | [place] [address] | | | PATHOLOGY | [address] | | | + + + + + PROTHROMBIN TIME (06/27/2006 11:55 AM PDT) + + + + + + | Component | Value | Ref Range | Performed | Pathologist | | | | | At | Signature | + + + + + + | INR | 1.19Comment: | 0.90 - 1.20 INR | [facility] [...] | + + + + + | [facility] DEPARTMENT OF | [address] [facility] | [place] [address] | | | PATHOLOGY | [address] | | | + + + + + | [facility] DEPARTMENT OF | [facility] [facility] | [place] [address] | | | PATHOLOGY | [address] | | | + + + + + JAIME OATES (06/27/2006 11:55 AM PDT) + + + [...] | + + + + + | [facility] | [address] | [place] [address] | | | PATHOLOGY | [address] | | | + + + + + | [facility] | [address] | [place] [address] | | | PATHOLOGY | [address] [...] | + + + + + | [facility] DEPARTMENT OF | [address] [facility] | [place] [address] | | | PATHOLOGY | [address] | | | + + + + + | [facility] DEPARTMENT OF | [address] [facility] [facility] | [place] [address] | | | PATHOLOGY | [address] [...] + + | [facility] DEPARTMENT OF | [facility] | [place] [address] | | | PATHOLOGY | [address] | | | + + + + + | [facility] DEPARTMENT OF | [facility] | [place] [address] | | | PATHOLOGY | [address] [...] | | | | | performed at [facility] | | | | | | [facility] | | | | | | Laboratory. | | | | + + + + + + + + | Specimen | + + | | + + + + + + + | Performing | Address | City/State/Zipcode | Phone Number | | Organization | | | | + + + + + | [facility] | [address] | [place] [address] | | | LAB-MICRO | | | [...] | | | | | performed at [facility] | | | | | | [facility] | | | | | | Laboratory. | | | | + + + + + + + + | Specimen | + + | | + + + + + + + | Performing | Address | City/State/Zipcode | Phone Number | | Organization | | | | + + + + + | [facility] | [address] | [place] [address] | | | LAB-MICRO | | | [...] + + | [facility] DEPARTMENT OF | [address] [facility] [facility] [address] | [place] [address] | | | PATHOLOGY | [address] | | | + + + + + | [facility] DEPARTMENT OF | [address] [facility] [address] | [place] [address] | | | PATHOLOGY | [address] [...] | | | | AG, SERUM | [facility] | | | | | | Laboratories. | | | | + + + + + + + + | Specimen | + + | | + + + + + + + | Performing | Address | City/State/Zipcode | Phone Number | | Organization | | | | + + + + + | [facility] | [address] | [place] [address] | | | LABORATORY | | | [...] | SURFACE AB | Test performed by [facility] | | | | | QUAL, SERUM | [facility] | | | | | | Laboratories. | | | | + + + + + + + + | Specimen | + + | | + + + + + + + | Performing | Address | City/State/Zipcode | Phone Number | | Organization | | | | + + + + + | [facility] | [address] | [place] [address] | | | LABORATORY | | | [...] | | | | | | [facility] | | | | | | [facility]el[facility]. | | | | + + + + + + + + | Specimen | + + | | + + + + + + + | Performing | Address | City/State/Zipcode | Phone Number | | Organization | | | | + + + + + | [facility] | [address] | [place] [address] | | | LABORATORY | | | | + + + + + CULT, BLOOD CHARLEYI & EDITH (06/27/2006 4:00 AM PDT) + [...] | | | | | performed at [facility] | | | | | | [facility] | | | | | | Laboratory. | | | | + + + + + + + + | Specimen | + + | | + + + + + + + | Performing | Address | City/State/Zipcode | Phone Number | | Organization | | | | + + + + + | [facility] | [address] | [place] [address] | | | LAB-MICRO | | | [...] | + + + + + | [facility] DEPARTMENT | [address] [facility] [facility] [address] | [place] [address] | | | PATHOLOGY | [address] | | | + + + + + | [facility] | [address] [place] [address] | [place] [address] | | | PATHOLOGY | [address] [...] DEPARTMENT OF | [address] | [place] [address] | | | PATHOLOGY | [address] | | | + + + + + | [facility] DEPARTMENT OF | [address] | [place] [address] | | | PATHOLOGY | [address] [...] | + + + + + | [facility] | [address] | [place] [address] | | | PATHOLOGY | [address] | | | + + + + + | [facility] | [address] | [place] [address] | | | PATHOLOGY | [address] [...] | + + + + + | [facility] DEPARTMENT OF | [address] [facility] [facility] [address] | [place] [address] | | | PATHOLOGY | [address] | | | + + + + + | [facility] DEPARTMENT OF | [address] | [place] [address] | | | PATHOLOGY | [address] [...] (H)Comment: | 0.90 - 1.20 INR | [facility] | | | | PT INR Therapeutic [...] | + + + + + | [facility] | [address] | [place] [address] | | | PATHOLOGY | [address] | | | + + + + + | [facility] DEPARTMENT OF | [address] | [place] [address] | | | PATHOLOGY | [address] [...] DEPARTMENT OF | [address] | [place] [address] | | | PATHOLOGY | [address] | | | + + + + + | [facility] DEPARTMENT OF | [address] | [place] [address] | | | PATHOLOGY | [address] [...] | + + + + + | [facility] DEPARTMENT OF | [facility] [facility] | [place] [address] | | | PATHOLOGY | [address] | | | + + + + + | [facility] DEPARTMENT OF | [facility] | [place] [address] | | | PATHOLOGY | [address] [...] 247 | 150 - 400 K/cu | [facility] [...] | + + + + + | [facility] DEPARTMENT OF | [address] [facility] | [place] [address] | | | PATHOLOGY | [address] | | | + + + + + | [facility] DEPARTMENT OF | [address] | [place] [address] | | | PATHOLOGY | [address] [...] CHEST: | | | | | | 8..2005 COMPARISON: | | | | | | [...] | + + + + + | [facility] | [address] [facility] | [place] [address] | | | PATHOLOGY | [address] | | | + + + + + | [facility] | [address] [facility] | [place] [address] | | | PATHOLOGY | [address] [...] | | | | | | the [facility] LabManual: | | | | | | [email or web address] | | | | | [email or web address] [...] | + + + + + | [facility] DEPARTMENT | [address] [facility] | [place] [address] | | | PATHOLOGY | [address] | | | + + + + + | [facility] | [address] [facility] [address] | [place] [address] | | | PATHOLOGY | [address] [...] | + + + + + | [facility] DEPARTMENT OF | [address] [facility] | [place] [address] | | | PATHOLOGY | [address] | | | + + + + + | [facility] DEPARTMENT OF | [address] [facility] | [place] [address] | | | PATHOLOGY | [address] [...] | + + + + + | [facility] | [facility] [facility] | [place] [address] | | | PATHOLOGY | [address] | | | + + + + + | [facility] DEPARTMENT OF | [address] [facility] | [place] [address] | | | PATHOLOGY | [address] [...] | + + + + + | [facility] | [address] [facility] | [place] [address] | | | PATHOLOGY | [address] | | | + + + + + | [facility] | [address] | [place] [address] | | | PATHOLOGY | [address] [...] 1.14Comment: | 0.90 - 1.20 INR | [place] | | | | PT INR Therapeutic [...] | + + + + + | [facility] DEPARTMENT OF | [address] | [place] [address] | | | PATHOLOGY | [address] | | | + + + + + | [facility] DEPARTMENT | [address] | [place] [address] | | | PATHOLOGY | [address] [...] | 32.0Comment: | 26.0 - 36.0 | [facility] | | | | APTT Therapeutic Range [...] | + + + + + | [facility] | [facility] [facility] | [place] [address] | | | PATHOLOGY | [address] | | | + + + + + | [facility] | [facility] | [place] [address] | | | PATHOLOGY | [address] [...] | + + + + + | [facility] DEPARTMENT OF | [address] | [place] [address] | | | PATHOLOGY | [address] | | | + + + + + | [facility] DEPARTMENT OF | [address] | [place] [address] | | | PATHOLOGY | [address] [...] | + + + + + | [facility] | [facility] | [place] [address] | | | PATHOLOGY | [address] | | | + + + + + | [facility] DEPARTMENT OF | [facility] | [place] [address] | | | PATHOLOGY | [address] [...] DEPARTMENT OF | [address] | [place] [address] | | | PATHOLOGY | [address] | | | + + + + + | [facility] DEPARTMENT OF | [address] | [place] [address] | | | PATHOLOGY | [address] [...] | + + + + + | [facility] DEPARTMENT OF | [address] | [place] [address] | | | PATHOLOGY | [address] | | | + + + + + | [facility] DEPARTMENT OF | [address] | [place] [address] | | | PATHOLOGY | [address] [...] | + + + + + | [facility] DEPARTMENT OF | [address] | [place] [address] | | | PATHOLOGY | [address] | | | + + + + + | [facility] DEPARTMENT OF | [address] | [place] [address] | | | PATHOLOGY | [address] [...] | + + + + + | [facility] DEPARTMENT OF | [address] | [place] [address] | | | PATHOLOGY | [address] | | | + + + + + | [facility] DEPARTMENT OF | [address] | [place] [address] | | | PATHOLOGY | [address] [...] | + + + + + | [facility] | [address] | [place] [address] | | | PATHOLOGY | [address] | | | + + + + + | [facility] | [address] | [place] [address] | | | PATHOLOGY | [address] | | | + + + + + documented in this encounter Visit Diagnoses Not on filedocumented in this encounter"
--- OUTSIDE RECORDS SUMMARY | ~2020-03-05 | XMS | Encounter Summary ---
Demographics + + + | Address | [address] | | | [place] [address] | + + + | Home Phone | | + + + | Preferred Language | Unknown | + + + | Marital Status | | + + + | Nondenominational Affiliation | 1013 | + + + | Race | Unknown | + + + | Ethnic Group | Unknown | + + + Author + + + | Author | [facility] | | | and Priteshana | + + + | Organization | [facility] | | | [...] Team Providers + +------+ + | Care Motor And Controls Tester Name | Role | Phone | + +------+ + | Wendi Aiken | PCP | | + +------+ + Encounter Details +--------+ + + + + | Date | Type | Department | Care Team | Description | +--------+ + + + + | 04/07/ | Imaging | [facility] | Provider, | | | 2018 | Exam | MED CTR EXTERNAL | MD [address] | | | | | IMAGING [address] | [address] | | | | | [facility] | [place] [address] | | | | | [place] [address] | | | | | | [phone] | | | +--------+ + + + [...] | Visit | | DO [address] | | | | | | [place] | | | | | | [address] | | | | | | | | +--------+---------+ + + + | 04/03/ | Office | Cardiology | Zuleyka Castillo DO | | | 2019 | Visit | | [address] | | | | | | [place] | | | | | | [address] | | | | | | | | +--------+---------+ + + + documented as of this encounter Procedures + +--------+ + + + | Procedure Name | Priori | Date/Time | Associated Diagnosis | Comments | | | ty | | | | + +--------+ + + + | CT ANGIOGRAM HEAD W | Routin | 02/24/2018 | | Results for this | | CONTRAST | e | 4:15 PM | | procedure are in the | | | | PDT | | results section. | + +--------+ + + + documented in this encounter Results CT Angiogram Head w Contrast (02/24/2018 4:15 PM PDT) + + | Specimen | [...]
--- OUTSIDE RECORDS SUMMARY | ~2020-03-05 | XMS | Encounter Summary ---
Demographics + + + | Address | [address] | | | [place] [address] | + + + | Home Phone | | + + + | Preferred Language | Unknown | + + + | Marital Status | | + + + | Druze Affiliation | 1013 | + + + | Race | Unknown | + + + | Ethnic Group | Unknown | + + + Author + + + | Author | [facility] | | | and Priteshana | + + + | Organization | [facility] | | | [...] Team Providers + +------+ + | Care Acid Supervisor Name | Role | Phone | + +------+ + | Wendi Aiken | PCP | | + +------+ + Encounter Details +--------+ + + + + | Date | Type | Department | Care Team | Description | +--------+ + + + + | 04/06/ | Imaging | [facility] | Provider, | | | 2018 | Exam | MED CTR EXTERNAL | MD [address] | | | | | IMAGING [address] | [address] | | | | | [facility] | [place] [address] | | | | | [place] [address] | | | | | | [phone] | | | +--------+ + + + [...] [place] | | | | | | [address] | | | | | | | | +--------+---------+ + + + | 04/03/ | Office | Cardiology | Zuleyka Castillo DO | | | 2019 | Visit | | [address] | | | | | | [place] | | | | | | [address] | | | | | | | [...] this | | CONTRAST | e | 7:05 AM | | procedure are in the | | | | PDT | | results section. | + +--------+ + + + documented in this encounter Results MRI Lumbar Spine wo Contrast (04/05/2018 7:05 AM PDT) + + | Specimen | [...]
--- OUTSIDE RECORDS SUMMARY | ~2020-03-05 | XMS | Encounter Summary ---
Demographics + + + | Address | [address] | | | [place] [address] | + + + | Home Phone [...] Team Providers + +------+ + | Care Color Checker Roving Or Yarn Name | Role | Phone | + +------+ + | Romy De La Paz MD | PCP | | + +------+ + Encounter Details +--------+ + + + + | Date | Type | Department | Care Team | Description | +--------+ + + + + | 07/18/ | Hospital | [facility] | Maykel Hutchins MD | | | 2019 | Encounter | [facility] XRAY | [address] | | | | | [address] | [place], | | | | | [place], [place] | [place] [address] | | | | | [address] | [phone] | | | | | [phone] | | | +--------+ + + + [...] Nasal | 2 each | 1 | 06/18/20 | | | 4 mg/nasal | route as needed for | | | 19 | | | sprayIndications: | Decreased | | | | | | MCFP current | Responsiveness (May | | | [...] | mouth Daily. | | | | 0 | | tablet | | | | | | + + + +---------+ + + | Calcium | Take by mouth. | | 0 | | | | Carb-Cholecalciferol | | | | | 0 | | (CALCIUM 1000 + D | | | | | | | PO) | | | | | | + + + +---------+ + + | chlorhexidine | Apply to affected | 118 mL | 0 | 07/19/20 | | | (HIBICLENS) 4 % | area the night | | | 19 | 0 | | external liquid | before and [...] | mouth daily. | | | | 0 | | (MULTIVITAMIN WITH | | | | | | | MINERALS) tablet | | | | | | + + + +---------+ + + | nitroglycerin | Place 0.4 mg under | | 0 | | | | (NITROSTAT) 0.4 mg | the tongue every 5 | | | | 0 | | SL tablet | minutes as needed | | | | | | | for Chest pain. | | | | | + + + +---------+ + + | ondansetron | Take 24 mg by mouth | | 0 | | | | (ZOFRAN) 24 MG | once. | | | | 0 | | tablet | | | | | | + + + +---------+ + + | raNITIdine | Take 150 mg by mouth | | 0 | | | | (ZANTAC) 150 mg | 2 (two) times | | | | 0 | | tablet | daily. | | | | | + + + +---------+ + + | rOPINIRole | Take 4 mg by mouth 4 | | 0 | | | | (REQUIP) 4 mg tablet | times daily. | | | | 0 | + + + +---------+ + + [...] [place] | | | | | | [id number] | | | | | | | | +--------+---------+ + + + | 04/03/ | Office | Cardiology | Zuleyka Castillo DO | | 2019 | Visit | | [address] | | | | | | [place] | | | | | | [address] | | | | | | | [...]
--- OUTSIDE RECORDS SUMMARY | ~2020-03-05 | XMS | Encounter Summary ---
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[place], [place]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 Removed Ranitidine and Myrbetriq from med list as these have not been filled in the last 3 months. Please see [facility] med list for updated medication list. Electronically Signed by: Hannah Ron PharmD 06/24/2018 10:06 documented in th is encounter Plan of Treatment +--------+---------+ + + + | Date | Type | Specialty | Care Team | Description | +--------+---------+ + + + | 03/17/ | Office | Pain Medicine | Denys Sibley, | | | 2019 | Visit | | DO [address] | | | | | | [place] | | | | | | [address] | | | | | | | | +--------+---------+ + + + | 04/03/ | Office | Cardiology | Zuleyka Castillo DO | | | 2020 | Visit | | [address] | | | | | | [place] | | | | | | [address] | | | | | | | [...] | | n - | | | 08/24/ | | | 2018 | | | 7:53 | | | [...] L?MRN: | | | | | | [id number] | | | [id number] | | | ecurit | | | [...] | | | St. | | | [place] | | | y | | | [...] | | | St. | | | [place] | | | y H. | | [...] | | | St. | | | [place] | | | y H. | | [...] | | | St. | | | [place] | | | y H. | | [...] | | | St. | | | [place] | | | y H. | | [...] | | | St. | | | [place] | | | y H. | | [...] | | | St. | | | [place] | | | y H. | | [...] | | | St. | | | [place] | | | y | | | [...] | | | L | | | ASIC DESIGN ENGINEER | | | , MD 2 | [...] | | GIAN | | | , 4 | | | 0 | | [...] + + | [facility] | [address] | [place], [place] | [phone] | | HOSPITAL LABORATORY | | [address] | | + + + + + [...] + + | [facility] | [address] | [place] | [phone] | | HOSPITAL LABORATORY | | [address] | | + + + + + [...] | | HOSPITAL | | | | Antipyretic/Whidbstxd47. | | LABORATORY | | | | [...] + + | [facility] | [address] | [place] | [phone] | | HOSPITAL LABORATORY | | [address] | | + + + + + [...] + + | [facility] | [address] | [place] | [phone] | | HOSPITAL LABORATORY | | [address] | | + + + + + [...] | mL/min/1.73m2 | [facility] | | | CYMRO | RATE,ESTIMATED | | HOSPITAL | | | | mL/min/1.79k9Kqsb than | | LABORATORY | | | [...] + + | [facility] | [address] | [place] | [phone] | | HOSPITAL LABORATORY | | [address] | | + + + + + [...] + + | [facility] | [address] | [place] | [phone] | | HOSPITAL LABORATORY | | [address] | | + + + + + [...] HEPATIC DAMAGE > 150.0 ug/mL | [facility] | | POTENTIALLY TOXIC > 200.0 ug/mL | HOSPITAL | | | LABORATORY | + + + + + + + + | Performing | Address | City/State/Zipcode | Phone Number | | Organization | | | | + + + + + | [facility] | [address] | [place] | [phone] | | HOSPITAL LABORATORY | | [address] | | + + + + + Urinalysis with Microscopic with Culture if Indicated (06/23/2018 8:40 PM PDT) + + + + + + | Component | Value | Ref Range | Performed | Pathologist | | | | | At | Signature | + + + + + + | Color, | Yellow | Pale Yellow, | [facility] | | | Urine | | Yellow | [facility] | | [...] - 1.030 | [facility] | | | [place], | | | [facility] | | | [...] | Blood, | Negative | Negative | [facility] | | | Urine | | | [...] + + + + + + | White Blood | 0-2 | <=5 /HPF | [facility] | | | Cells, | | | [facility] | | | Urine | | | HOSPITAL | | | | | | LABORATORY | | + + + + + + | Red Blood | None Seen | <=5 /HPF | [facility] | | | Cells, | | | [facility] | | | Urine | | | HOSPITAL | | | | | | LABORATORY | | + + + + + + | Squamous | Few (A) | None Seen /LPF | [facility] | | | Epithelial | | | [facility] | | | Cells, | | | HOSPITAL | | | Urine | | | LABORATORY | | + + + + + + | Bacteria, | Trace (A) | None Seen /HPF | [facility] | | | Urine | | | [facility] | | | | | | HOSPITAL | | | | | | LABORATORY | | + + + + + + | Urine | Urine Culture Not | | [facility] | | | Comment | Indicated | | [facility] | | [...] + + | [facility] | [address] | [place], [place] | [phone] | | HOSPITAL LABORATORY | | [address] | | + + + + + [...] emergency medical use only. Not | [facility] | | intended for legal purposes. Chain of Custody not maintained. | HOSPITAL | | Confirmation of Positive results must be ordered by the attending | LABORATORY | | physician. Bbhe-qjt-lxbozji drugs may cross react with some methods. [...] + + | [facility] | [address] | [place] | [phone] | | HOSPITAL LABORATORY | | [address] | | + + + + + [...] 18 9:22 | | | | | 06/24/18 at 0900 | | AM PDT [...] 1 dose, ARIEL BOND: | | | cabinet override, | | + +---+ | | | [...] | | | 4 mg, Oral, ONCE, 06/23/18 | | 18 11:00 | | | [...]
--- OUTSIDE RECORDS SUMMARY | ~2020-03-05 | XMS | Encounter Summary ---
Demographics + + + | Address | [address] | | | [place] [address] | + + + | Home Phone | | + + + | Preferred Language | Unknown | + + + | Marital Status | | + + + | Scientologist Affiliation | 1013 | + + + | Race | Unknown | + + + | Ethnic Group | Unknown | + + + Author + + + | Author | [facility] | | | and Priteshana | + + + | Organization | [facility] | | | and [...] Team Providers + +------+ + | Care Hand Edge Bander Name | Role | Phone | + +------+ + PCP | Unavailable | + +------+ + Reason for Visit + + + | Reason | Comments | + + + | Medication Problem | | + + + Encounter Details +--------+ + + + + | Date | Type | Department | Care Team | Description | +--------+ + + + + | 11/01/ | Telephone | [facility] | Shay Dietz | Medication Problem | | 2012 | | PHYSIATRY [address] | [address] | | | | [address] | [address] [place], [place] | | | | | [place], [place] | [address] | | | | | [address] | | | | | | [phone] | | | +--------+ + + + [...] | Visit | | DO [address] | | | | | | [place] | | | | | | [address] | | | | | | | | +--------+---------+ + + + | 04/03/ | Office | Cardiology | Zuleyka Castillo DO | | 2019 | Visit | | [address] | | | | | | [place] | | | | | | [address] | | | | | | | | +--------+---------+ + + + documented as of this encounter Visit Diagnoses + + | Diagnosis | + + | Back pain - Primary Backache, unspecified | + + documented in this encounter"
--- OUTSIDE RECORDS SUMMARY | ~2020-03-05 | XMS | Encounter Summary ---
Demographics + + + | Address | [address] | | | [place] [address] | + + + | Home Phone | | + + + | Preferred Language | Unknown | + + + | Marital Status | | + + + | Bahai Affiliation | 1013 | + + + [...] Team Providers + +------+ + | Care Photogrammetry Airplane Pilot Name | Role | Phone | + +------+ + | Romy De La Paz MD | PCP | | + +------+ + Encounter Details +--------+ + + + + | Date | Type | Department | Care Team | Description | +--------+ + + + + | 07/18/ | Clinical | [facility] | | Radiculopathy of | | 2019 | Support | NEUROSURGERY [address] | | thoracolumbar | | | | [address] [place] [address] | | region; | | | | [place], [place] | | Postlaminectomy | | | | [address] | | syndrome, thoracic | | | | [phone] | | region | +--------+ + + [...] in this encounter Patient Instructions Patient Instructions iNki Pizarro RN - 07/18/2019 12:45 PM PDTPreOp [...] concerns feel free to call us at [phone]. documented in this encounter Progress Notes Niki [...] that she will on occasion run a [employer] ow grade fever and all tests and blood work come back negative infection, patient states she does have a history of UTI's as well. Patient was sent to [facility] for their scheduled pre-admit appointment, anesthesia [...] [place] | | | | | | [id number] | | | | | | | | +--------+---------+ + + + | 04/03/ | Office | Cardiology | Zuleyka Castillo DO | | 2019 | Visit | | [address] | | | | | | [place] | | | | | | [address] | | | | | | | | +--------+---------+ + + + documented as of this encounter Visit Diagnoses + + | Diagnosis | + + | Radiculopathy of thoracolumbar region Thoracic or lumbosacral neuritis or | | radiculitis, unspecified | + + | Postlaminectomy syndrome, thoracic region | + + documented in this encounter
--- OUTSIDE RECORDS SUMMARY | ~2020-03-05 | XMS | Encounter Summary ---
Demographics + + + | Address | [address] | | | [place] [address] | + + + | Home Phone | | + + + | Preferred Language | Unknown | + + + | Marital Status | | + + + | Yazdanism Affiliation | 1013 | + + + | Race | Unknown | + + + | Ethnic Group | Unknown | + + + Author + + + | Author | [facility] | | | and Priteshana | + + + | Organization | [facility] | | [...] Team Providers + +------+ + | Care Lumber Chain Offbearer Name | Role | Phone | + +------+ + | Concepción Gallardo NP | PCP | | + +------+ + Encounter Details +--------+ + + + + | Date | Type | Department | Care Team | Description | +--------+ + + + + | 07/08/ | Abstract | [facility] [place] | Darrin Hoyos | | | 2013 | | NEUROSURGERY [address] | [address] | | | | | [address] | [address] | | | | | [place], [place] | [place] [address] | | | | | [address] | [phone] | | | | | [phone] | | | +--------+ + + + [...] [place] | | | | | | [address] | | | | | | | | +--------+---------+ + + + | 04/03/ | Office | Cardiology | Zuleyka Castillo DO | | 2019 | Visit | | [address] | | | | | | [place] | | | | | | [address] | | | | | | | | +--------+---------+ + + + documented as of this encounter Visit Diagnoses Not on filedocumented in this encounter"
--- OUTSIDE RECORDS SUMMARY | ~2020-03-05 | XMS | Encounter Summary ---
Demographics + + + | Address | [address] | | | [place] [address] | + + + | Home Phone | | + + + | Preferred Language | Unknown | + + + | Marital Status | | + + + | Confucianist Affiliation | 1013 | + + + | Race | Unknown | + + + | Ethnic Group | Unknown | + + + Author + + + | Author | [facility] | | | and Priteshana | + + + | Organization | [facility] | | | [...] Team Providers + +------+ + | Care New Account Interviewer Name | Role | Phone | + +------+ + PCP | Unavailable | + +------+ + Encounter Details +--------+ + + + + | Date | Type | Department | Care Team | Description | +--------+ + + + + | 09/18/ | Abstract | [facility] [place] | Ricardo, | | | 2011 | | GASTROENTEROLOGY | [address] | | | | | [address] | [place] | | | | | [address] [place], [place] | [place], [place] | | | | | [address] | [address] | | | | | [phone] | | | +--------+ + + + [...] 2019 | Visit | | [address] | | | | | | [place] | | | | | | [address] | | | | | | | | +--------+---------+ + + + | 04/03/ | Office | Cardiology | Zuleyka Castillo DO | | | 2019 | Visit | | [address] | | | | | | [place] | | | | | | [id number] | | | | | | | | +--------+---------+ + + + documented as of this encounter Visit Diagnoses Not on filedocumented in this encounter"
--- OUTSIDE RECORDS SUMMARY | ~2020-03-05 | XMS | Encounter Summary ---
Demographics + + + | Address | [address] | | | [place] [address] | + + + | Home Phone | | + + + | Preferred Language | Unknown | + + + | Marital Status | | + + + | Pentecostal Affiliation | 1013 | + + + | Race | Unknown | + + + | Ethnic Group | Unknown | + + + Author + + + | Author | [facility] | | | and Priteshana | + + + | Organization | [facility] | | [...] Team Providers + +------+ + | Care Mail Censor Name | Role | Phone | + [...] + + | 07/24/ | Telephone | [facility] | Maykel Hutchins MD | Pre-op Question | | 2019 | | [facility] | [address] | | | | | ORTHOPEDIC SPINE | [place] | | | | | [address] [place] | [place] [address] | | | | | [place] | [phone] | | | | | [address] | | | | | | [phone] | | | +--------+ + + + [...] [place] | | | | | | [address] | | | | | | | | +--------+---------+ + + + | 04/03/ | Office | Cardiology | Zuleyka Castillo DO | | | 2020 | Visit | | [address] | | | | | | [place] | | | | | | [address] | | | | | | | | +--------+---------+ + + + documented as of this encounter Visit Diagnoses Not on filedocumented in this encounter"
--- OUTSIDE RECORDS SUMMARY | ~2020-03-05 | XMS | Encounter Summary ---
Demographics + + + | Address | [address] | | | [place] [address] | + + + | Home Phone | | + + + | Preferred Language | Unknown | + + + | Marital Status | Single | + + + | Jewish Affiliation | NON | + + + [...] Team Providers + +------+ + | Care Change Control Coordinator Name | Role | Phone | + +------+ + | Oxana Nye | PCP | | + +------+ + Encounter Details +--------+ + + + + | Date | Type | Department | Care Team | Description | +--------+ + + + + | 09/30/ | MyChart | Cardiology General | Airam Fuchs MD | RE: Do I really | | 2016 | Encounter | at [facility] [address] | [address] | havea problem with | | | | Ave Mailcode: CH7C | [address] [place], | my heart. | | | | [place] [facility] | [place] [address] | | | | | and Healing, | [phone] | | | | | [facility] | | | | | | Floor [place], [place] | | | | | | [address] | | | | | | [phone] | | | +--------+ + + + [...]
--- OUTSIDE RECORDS SUMMARY | ~2020-03-05 | XMS | Encounter Summary ---
Demographics + + + | Address | [address] | | | [place] [address] | + + + | Home Phone [...] Team Providers + +------+ + | Care Heel Blacker Name | Role | Phone | + [...] | | | | | | | IA SURG | | | | | | | IMPLNT | | | | | | | NEUROELECT,E | | | | | | | PIDURAL IA | | | | | | | IMPLANT | | | | | | | NEUROSTIM/RE | | | | | | | CEIVER IA | | | | | | | [...] + + | 08/03/ | Surgery | [facility] | Maykel Hutchins MD | LAMINOTOMY THORACIC | | 2019 | | [facility] | [address] | / LUMBAR W/ | | | | OPERATING RO[address] | [place] | PLACEMENT SPINAL | | | | [address] | [place] [address] | CORD STIMULATOR | | | | [place] | [phone] | | | | | [address] | | | | | | [phone] | | | +--------+---------+ + + + [...] note might be different from logan phillips. [facility]. 08/04/2019 DISCHARGE SUMMARY PATIENT NAME: Kori Mcintosh-Fawthrop [...] by elevating your feet Date Last Reviewed: [id number] [employer]. [address] [place] [address]. All righ ts reserved. This information is not intended as a substitute for professional medical care. Always follow your healthcare professional's instructions. Acetaminophen; Hydrocodone tablets or capsules Brand Names: Anexsia, Lorcet, Lorcet HD, Lorcet Plus, Lortab, [place], Verdrocet, Vicodin, Vi codin ES, Vicodin HP, [...] information carefully each time. Talk to your snow removal supervisor regarding the use of this medicine in children. Special care may be needed. What side effects may I notice from receiving this medicine? Side effects that you should report to your doctor or health care asst as soon as p ossible: allergic reactions [...] attention (report to your doctor or health care asst if they continue or are bothersome): constipation [...] site. Contact the JEF at or your [facility] to find a site. If you cannot [...] this medicine? 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 The patient would need to follow up with patient on Tuesday. Electronical ly signed by ANGELO Escudero at 08/04/2019 2:13 PM Julien Luevano ARNP - 08/04/2019 8:41 AM PDT Kori McintoshMartita is a 74 y.o. female patient s/p SCS placement with thoracic sequeira inectomy yesterday. Stayed overnight as patient lives alone. She has a friend that will pick her up today to go home to [facility]. Past Medical History: Diagnosis Date Acid reflux [...] 100 mg 100 mg Oral BID PRN RENATO DavisP HYDROcodone-acetaminophen (NORCO) 10-325 mg per tablet 1 tablet 1 tablet Oral Q4H PRN RENATO DavisP 1 tablet at 08/04/19 0502 HYDROmorphone (DILAUDID) injection 0.2-0.4 mg 0.2-0.4 mg Intravenous Q1H PRN Maykel ortiz MD 0.2 mg at 08/03/19 1700 methocarbamol (ROBAXIN) tablet 1,500 mg 1,500 mg Oral Q6H PRN KANG Davis ondansetron (ZOFRAN ODT) disintegrating tablet 4 mg 4 mg Oral Q6H PRN KANG Davis rOPINIRole (REQUIP) tablet 4 mg 4 mg Oral 4x Daily PRN Maykel Hutchins MD senna (SENOKOT) tablet 8.6 mg 8.6 mg Oral BID PRN KANG Davis sodium chloride 0.45% (1/2 NS) infusion Intravenous Continuous Maykel Hutchins MD 100 mL /hr at 08/03/19 1342 950 mL at 08/03/19 1342 sodium chloride 0.45% (1/2 NS) infusion Intravenous Continuous RENATO DavisP 100 m L/hr at 08/04/19 0057 Allergies [...] [place] | | | | | | [address] | | | | | | | | +--------+---------+ + + + | 04/03/ | Office | Cardiology | Zuleyka Castillo DO | | | 2019 | Visit | | [address] | | | | | | [place] | | | | | | [address] | | | | | | | [...] +--------+ + + + | FL C ARM | Routin | 08/03/2019 | | Results [...] | | | Needs | | | BILINGUAL NANNY | | | reques | | | [...] [facility];[address] | | LABORATORY | | | | [address];[place], [place] | | | | | | [address] | | | | + + + + + + + + | Specimen | + + | | + + + + + + + | Performing | Address | City/State/Zipcode | Phone Number | | Organization | | | | + + + + + | [facility] | [address] | [place] [address] | [phone] | + + + + + POC Glucose (08/03/2019 4:15 PM PDT) + + + + + + | Component | Value | Ref Range | Performed | Pathologist | | | | | At | Signature | + + + + + + | Glucose, | 99Comment: Testing | 65 - 99 mg/dL | [facility] | | | POC | performed at [facility];[address] | | LABORATORY | | | | [address];[place] | | | | | | [address] | | | | + + + + + + + + | Specimen | + + | | + + + + + + + | Performing | Address | City/State/Zipcode | Phone Number | | Organization | | | | + + + + + | [facility] | [address] | [place] [address] | [phone] | + + + + + POC Glucose (08/03/2019 1:08 PM PDT) + + + + + + | Component | Value | Ref Range | Performed | Pathologist | | | | | At | Signature | + + + + + + | Glucose, | 107 (H)Comment: Testing | 65 - 99 mg/dL | [facility] | | | POC | performed at [facility];[address] | | LABORATORY | | | | [address];[place], [place] | | | | | | [address] | | | | + + + + + + + + | Specimen | + + | | + + + + + + + | Performing | Address | City/State/Zipcode | Phone Number | | Organization | | | | + + + + + | [facility] | [address] | [place] [address] | [phone] | + + + + + POC [...] [facility];[address] | | LABORATORY | | | | [address];[place] | | | | | | [address] | | | | + + + + + + + + | Specimen | + + | | + + + + + + + | Performing | Address | City/State/Zipcode | Phone Number | | Organization | | | | + + + + + | [facility] | [address] | [place] [address] | [phone] | + + + + + FL Kirt (08/03/2019 10:27 AM PDT) + + | Specimen | + + | | + + + + + | Impressions | Performed At | + + + | IMPRESSION: Fluoroscopic service for procedure. Signed | [facility] | | by: Shady Wesley, Contreras Ahuja Date/Time: 08/03/2019 11:01 AM | | + [...] + | Junior, Rad Results In - 08/03/2019 11:05 AM PDT [...] | | | | Signed by: Shady Wesley Isaac | | Sign Date/Time: 08/03/2019 11:01 AM | + + + +---------+ + + | Performing | Address | City/State/[facility] | Phone Number | | Organization [...] [facility];[address] | | LABORATORY | | | | [address];[place], [place] | | | | | | [address] | | | | + + + + + + + + | Specimen | + + | | + + + + + + + | Performing | Address | City/State/Zipcode | Phone Number | | Organization | | | | + + + + + | [facility] | [address] | [place] [address] | [phone] | + + + + + POC [...] [facility];[address] | | LABORATORY | | | | [address];[place] | | | | | | [address] | | | | + + + + + + + + | Specimen | + + | | + + + + + + + | Performing | Address | City/State/Zipcode | Phone Number | | Organization | | | | + + + + + | [facility] | [address] | [place] [address] | [phone] | + + + + + Type [...] + + + | BB BAND | [id number] | | [facility] | | | | | | LABORATORY | | + + + + + + | BB BAND | Testing performed at | | [facility] | | | | [facility];[address] | | LABORATORY | | | [address];[place] [address] | | | | + + + + + + + + | Specimen | + + | Blood | + + + + + + + | Performing | Address | City/State/Zipcode | Phone Number | | Organization | | | | + + + + + | [facility] | [address] | [place] [address] | [phone] | + + + + + POC Glucose (08/03/2019 7:23 AM PDT) + + + + + + | Component | Value | Ref Range | Performed | Pathologist | | | | | At | Signature | + + + + + + | Glucose, | 77Comment: Testing | 65 - 99 mg/dL | [facility] | | | POC | performed at [facility];[address] | | LABORATORY | | | | [address];[place] | | | | | | [address] | | | | + + + + + + + + | Specimen | + + | | + + + + + + + | Performing | Address | City/State/Zipcode | Phone Number | | Organization | | | | + + + + + | [facility] | [address] | [place] [address] | [phone] | + + + + + documented [...] | | | | | | | Tue08/03/19 at 0745, Pre-op | | | | [...] DAILY PRN, Constipation, | | | Starting Tue08/03/19 at 1915, [...] PRN, Nausea, | | | Vomiting, Starting 08/03/19 | | | at 1915, First line agent, | | | Post-op/Phase II | | + +---+ | | | + +---+ | rOPINIRole (REQUIP) tablet 4 mg | | | 4 mg, Oral, 4 TIMES DAILY PRN, | | | Restless Legs, Starting Fri | | | 08/03/19 at 2104 | [...] | | | | | 08/03/19 at 1007, Intra-op | | | [...]
--- OUTSIDE RECORDS SUMMARY | ~2020-03-05 | XMS | Encounter Summary ---
Demographics + + + | Address | [address] | | | [place] [address] | + + + | Home Phone | | + + + | Preferred Language | Unknown | + + + | Marital Status | | + + + | Mandaeism Affiliation | 1013 | + + + | Race | Unknown | + + + | Ethnic Group | Unknown | + + + Author + + + | Author | [facility] | | | and Priteshana | + + + | Organization | [facility] | | [...] Team Providers + +------+ + | Care Corrections Officer Name | Role | Phone | + +------+ + | Romy De La Paz MD | PCP | | + +------+ + Encounter Details +--------+ + + + + | Date | Type | Department | Care Team | Description | +--------+ + + + + | 10/18/ | Telephone | [facility] | Shay Dietz | | | 2012 | | MEDICINE [address] | MD Lonny [address] | | | | | [address] [facility] | [place], [place] | | | | | [place] [address] | [address] | | | | | [phone] | | | +--------+ + + + [...] [place] | | | | | | [address] | | | | | | | | +--------+---------+ + + + | 04/03/ | Office | Cardiology | Zuleyka Castillo DO | | | 2019 | Visit | | [address] | | | | | | [place] | | | | | | [id number] | | | | | | | | +--------+---------+ + + + documented as of this encounter Visit Diagnoses Not on filedocumented in this encounter"
--- OUTSIDE RECORDS SUMMARY | ~2020-03-05 | XMS | Encounter Summary ---
Demographics + + + | Address | [address] | | | [place] [address] | + + + | Home Phone | | + + + | Preferred Language | Unknown | + + + | Marital Status | | + + + | Evangelical Affiliation | 1013 | + + + | Race | Unknown | + + + | Ethnic Group | Unknown | + + + Author + + + | Author | [facility] | | | and Priteshana | + + + | Organization | [facility] | | | [...] Team Providers + +------+ + | Care Nurse Anesthetist Name | Role | Phone | + [...] low back | PA-C [address] | [facility] [place] | | | | | pain with | [address], | [address] | | | | | right-sided | [address] | Phone: | | | | | sciatica | [place] | [phone] | | | | | Facet | [address] | Fax: | | | | | arthritis of | Phone: | [phone] | | | | | lumbar | [phone] | | | | | | region | Fax: | | | | | | 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 | | | | | | idiopathic [...] | | | [place], | [address] | | | | | Trochanteric | [place], | [place], | | | | | bursitis of | PA-C [address] | [place] | | | | | right hip | [address], | [address] | | | | | Procedures | [address] | Phone: | | | | | [place] | [place] | [phone] | | | | | Joint | [address] | Fax: | | | | | Injection | Phone: | [phone] | | | | | Right | [phone] | | | | | | | Fax: | | | | | | | [phone] | | +--------+--------+ + + + + [...] + + | 02/08/ | Office | [facility] | [place], | Chronic bilateral | | 2017 | Visit | PHYSIATRY [address] | [place] [address] [address] | low back pain with | | | | [address] | [address], [address] | right-sided sciatica | | | | [place] | [place] [address] | (Primary Dx); Facet | | | | [address] | [phone] | arthritis of lumbar | | | | [phone] | | region (HCC); | | | [...] of blood sugars if you are diabetic. FCI risk can lead to osteoporosis which is [...] of the procedure you must provide a route cdl driver to take you home. For all [...] working more h ours due to the [employer] up. Her pain back is worse [...] has no apparent deficits with short or rn long term care memory. 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 Unfortunately she lola nues to have significant [...] surgery again. She last saw him in 015, a physiatric evaluation was recommended,she did have [...] Yaneli Dueñas PA-C, 02/08/2017 CC: [place]una docume nted in this encounter Plan of Treatment +--------+---------+ + + + | Date | Type | Specialty | Care Team | Description | +--------+---------+ + + + | 03/17/ | Office | Pain Medicine | Denys Sibley, | | | 2019 | Visit | | DO [address] | | | | | | [place] | | | | | | [address] | | | | | | | | +--------+---------+ + + + | 04/03/ | Office | Cardiology | Zuleyka Castillo DO | | | 2019 | Visit | | [address] | | | | | | [place] | | | | | | [address] | | | | | | | [...] bilateral | Ordered: 02/08/2017 | | [facility] [place] [facility] | Referral | e | low [...] Bursa Injection Diagnosis: Lumbar Spondylosis and | [facility] | | Trochanteric Bursitis ICD-10 Code M47.816 and ICD-10 Kori | [facility] | | Harshal Rubio presents to the [...] | + + + + + | [address] | [address] | [place] | [phone] | | [facility] | | [address] | | | - IMAGING | | [...]
--- OUTSIDE RECORDS SUMMARY | ~2020-03-05 | XMS | Encounter Summary ---
Demographics + + + | Address | [address] | | | [place] [address] | + + + | Home Phone [...] Team Providers + +------+ + | Care Coater Associate Name | Role | Phone | [...] + + | 11/01/ | Telephone | [facility] | Shay Dietz | Medication Problem | | 2012 | | PHYSIATRY [address] | [address], [address] | | | | | [address] | [place], [place] | | | | | [place], [place] | [address] | | | | | [address] | | | | | | [phone] | | | +--------+ + + + [...] [place] | | | | | | [address] | | | | | | | | +--------+---------+ + + + | 04/03/ | Office | Cardiology | Zuleyka Castillo DO | | 2019 | Visit | | [address] | | | | | | [place] | | | | | | [address] | | | | | | | | +--------+---------+ + + + documented as of this encounter Visit Diagnoses + + | Diagnosis | + + | Back pain - Primary Backache, unspecified | + + documented in this encounter"
--- OUTSIDE RECORDS SUMMARY | ~2020-03-05 | XMS | Encounter Summary ---
Demographics + + + | Address | [address] | | | [place] [address] | + + + | Home Phone | | + + + | Preferred Language | Unknown | + + + | Marital Status | Single | + + + | Synagogue Affiliation | NON | + + + [...] Team Providers + +------+ + | Care Helper Marble Finisher Name | Role | Phone | + [...] as of this encounter Discharge Summaries Interface, Principal Investigator In - 08/03/2006 2:03 AM PDT [id number]/ [id number] ROSANA Suarez [id number] Admission Date: 06/26/2006 Discharge Date: 06/30/2006 Staff [...] up with her primary care doctor in [place] to get lab followup within the next [...] psychiatrist, Dr. Pham; his phone number is [phone]. She is to make a followup appointment with him within the next week. The patient is also to follow up with Dr. Kel Young, he is located as well in [place], [place], and is associated with [facility]. She is to follow up with him for repeat electrolytes including potassium, magnesium, and phosphorus within the next several days. Monroe Disla M.D. Sherita Madrid M.D., M.P.H. / [id number] / [id number] / [id number] / [phone] cc: * Dr. Pham [facility], [place] FAX: [phone] Kel Young M.D. Electronically signed by Sherita Madrid 08-02-2006 11:01:13 AM documented i n this encounter Plan of Treatment Not on filedocumented as of this encounter Visit Diagnoses Not on filedocumented in this encounter"
--- OUTSIDE RECORDS SUMMARY | ~2020-03-05 | XMS | Encounter Summary ---
Demographics + + + | Address | [address] | | | [place] [address] | + + + | Home Phone [...] Team Providers + +------+ + | Care Wrapper Stemmer Hand Name | Role | Phone | + +------+ + | Miquel Calhoun MD | PCP | | + +------+ + Reason for Visit + + + | Reason | Comments | + + + | Back Pain | Low back pain that radiates into the left leg | + + + Encounter Details +--------+---------+ + + + | Date | Type | Department | Care Team | Description | +--------+---------+ + + + | 05/01/ | Office | [facility] | Shay Dietz | BACK PAIN, LUMBAR | | 2012 | Visit | [address]SIATRY [address] | TMD [address] | (Primary Dx); DISC | | | | [address] | [place], [place] | DISEASE, LUMBAR; | | | | [place] | [address] | OSTEOARTHRITIS, | | | | [address] | | LUMBOSACRAL SPINE | | | | [phone] | | | +--------+---------+ + + + [...] + + + | Blood Pressure | 145/90 | 05/01/2013 10:59 AM | | | | | PDT | | + + + + + | Pulse | 88 | 05/01/2013 10:59 AM | | | | | PDT [...] Weight | 69.9 kg (154 lb) | 05/01/2013 10:59 AM | | | | | PDT | | + + + + + | Height | 160 cm (5' 3") | 05/01/2013 10:59 AM | | | | | PDT | | + + + + + | Body Mass Index | 27.28 | 05/01/2013 10:59 AM | | | | | PDT | | + + + + + documented in this encounter Patient Instructions Patient Instructions Shay Dietz MD - 05/01/2013 11:20 AM [facility] minutes before your scheduled [...] our off ice. Please also provide a tractor sweeper driver to take you home on the day of the procedure. documented in this encounter Progress Notes Shay Dietz MD - 05/01/2013 11:08 AM PDT Subjective: Patient ID: Kori Rubio is a 67 y.o. female. Chief Complaint Patient presents with Back Pain Low back pain that radiates into the left leg HPI The patient is being seen today in follow-up for complaints of low back pain that radiates down the left leg. She indicates that she feels like the leg pain may be more related to a s eparate injury to the left ankle. She had two recent falls that made her pain worse as well as an incident that occurred just last night when she was involved in an altercation with 3 police officers. She actually called a suicide prevention line because she was having though ts of committing suicide. The police arrived and she had a box knife in her hand. She repor ts that instead of asking her to drop the knife they tackled her. She is not having thought s of committing suicide at this time. She is currently staying at a respite house. She comes in today with a friend, she is not attended by anyone from the care facility today. She describes her symptoms as aching. Her symptoms have been worsening. Her symptoms worsen with any activity. Her symptoms improve with the use of Oxycodone and Flexeril. She denies numbness. She denies weakness. She denies bowel and bladder dysfunction. She does indicate some stress urinary incontinence. She also denies saddle anesthesia. Treatments for these complaints have included two prior injections, the use of Oxycodone an d Flexeril. Prior injections have included two prior bilateral L4-L5 facet injections, the most recent injection was performed by [facility] on 11/09/2012. She reports good relief with the injections. Patient's medications, allergies, past medical, surgical, social and family histories were reviewed and updated as appropriate. Current Outpatient Prescriptions Medication Sig Dispense Refill aspirin 81 MG tablet Take 81 mg by mouth Daily. ClonazePAM (KLONOPIN PO) TABS cyclobenzaprine (FLEXERIL) 5 MG tablet Take 1-2 tablets up to three times daily as need ed 60 tablet 2 IBUPROFEN PO TABS - 200 mg as needed levothyroxine (SYNTHROID, LEVOTHROID) 150 mcg tablet one tablet every morning on an emp ty stomach montelukast (SINGULAIR) 10 mg tablet Take 10 mg by mouth Daily. Multiple Vitamin (MULTI-VITAMIN DAILY PO) Take by mouth. oxyCODONE-acetaminophen (PERCOCET) 10-325 mg per tablet Take 1 tablet by mouth every 8 hours as needed. ranitidine (ZANTAC) 150 mg tablet Take 150 mg by mouth 2 times daily. Ropinirole HCl (REQUIP XL) 6 MG TB24 daily 3 hours before bedtime. 1 in the morning, an d 1 at noon Review of Systems She had a recent left ankle sprain which resulted from a fall. Objective: Physical Exam Nursing note and vitals [...] the majority of the pain to the L4-L5 region. Lumbar facet loading was negative. Strength testing showed 5/5 stren gth throughout the lower extremities. The patient was able to heel and toe walk without dif ficulty. There was redness, effusion, warmth or joint line tenderness in the left ankle, no other redness or tenderness noted. Assessment: 1. BACK PAIN, LUMBAR 2. DISC DISEASE, LUMBAR 3. OSTEOARTHRITIS, LUMBOSACRAL SPINE 4. SUICIDAL IDEATION, She denies being actively suicidal at present. Plan: 1. The patient is hoping to get her back pain under better control. She feels this will h elp considerably with her depression as well. She has done well with prior injections and I offered to repeat the bilateral L4-L5 facet injections. She is mostly having left sided back pain but indicates she is having enough pain on the right that she would like to repeat the injections on both sides. 2. I did write a letter to the caregivers at the [facility] to allow them to give her a slightly increased dose of the narcotic until the injection starts working. documented in this encounter Plan of Treatment +--------+---------+ + + + | Date | Type | Specialty | Care Team | Description | +--------+---------+ + + + | 03/17/ | Office | Pain Medicine | Denys Sibley, | | | 2019 | Visit | | DO [address] | | | | | | [address] [facility] [place] | | | | | | [address] | | | | | | | | +--------+---------+ + + + | 04/03/ | Office | Cardiology | Zuleyka Castillo DO | | | 2019 | Visit | | [address] | | | | | | [place] | | | | | | [address] | | | | | | | | +--------+---------+ + + + documented as of this encounter Visit Diagnoses + + | Diagnosis | + + | BACK PAIN, LUMBAR - Primary Lumbago | + + | DISC DISEASE, LUMBAR Degeneration of lumbar or lumbosacral intervertebral disc | + + | OSTEOARTHRITIS, LUMBOSACRAL SPINE Lumbosacral spondylosis without myelopathy | + + documented in this encounter
--- OUTSIDE RECORDS SUMMARY | ~2020-03-05 | XMS | Encounter Summary ---
Demographics + + + | Address | [address] | | | [place] [address] | + + + | Home Phone | | + + + | Preferred Language | Unknown | + + + | Marital Status | | + + + | Mu-Ism Affiliation | 1013 | + + + [...] Team Providers + +------+ + | Care Internet Programmer Name | Role | Phone | + +------+ + | Miquel Calhoun MD | PCP | | + +------+ + Reason for Visit +--------+ + | Reason | Comments | +--------+ + | Other | To discuss pain log reponse | +--------+ + Encounter Details +--------+ + + + + | Date | Type | Department | Care Team | Description | +--------+ + + + + | 06/28/ | Telephone | [facility] | Shay Dietz | Other (To discuss | | 2012 | | PHYSIATRY [address] | [address] | pain log reponse) | | | | [address] | [address] [place] | | | | | [place] | [address] | | | | | [address] | | | | | | [phone] | | | +--------+ + + + [...] [place] | | | | | | [address] | | | | | | | | +--------+---------+ + + + | 04/03/ | Office | Cardiology | Zuleyka Castillo DO | | | 2020 | Visit | | [address] | | | | | | [place] | | | | | | [address] | | | | | | | | +--------+---------+ + + + documented as of this encounter Visit Diagnoses Not on filedocumented in this encounter"
--- OUTSIDE RECORDS SUMMARY | ~2020-03-05 | XMS | Encounter Summary ---
Demographics + + + | Address | [address] | | | [place] [address] | + + + | Home Phone [...] + + + | Author | [facility] | + + + | Organization | [facility] | + + + | Address | Unknown | + + + | Phone | Unavailable | + + + Support + + +---------+ + | Name | Relationship | Address | Phone | + + +---------+ + | Royce Menchaca | ECON | Unknown | | + + +---------+ + Care Team Providers + +------+ + | Care Field Marketing Coordinator Name | Role | Phone | [...] at [facility] [address] | [address] | (follow up BPs) | | | | Brittany Mailcode: CH7C | [address] [place], | | | | | [facility] | [place] [address] | | | | | and Healing, | [phone] | | | | | Building | | | | | | Floor [place], [place] | | | | | | [address] | | | | | | [phone] | | | +--------+ + + + [...]
--- OUTSIDE RECORDS SUMMARY | ~2020-03-05 | XMS | Clinical Summary ---
Demographics + + + | Address | [address] | | | [place] [address] | + + + | Home Phone [...] | Author | [facility] (Historical as of | | | 06-16-19) | + + + | Organization | [facility] (Historical as of | | | [...] Team Providers + +------+ + | Care Software Project Manager Name | Role | Phone | [...] +---------+------+------+-------+ | | Apply to affected | 76941 g | 3 | 04/30 | 04/30 [...] Overview: Added automatically from request for surgery [id number] | + + + + + | Radiculopathy of thoracolumbar region | 06/07/2019 | + + + + + | Overview: Added automatically from request for surgery [id number] | + + + + + | Radiculopathy, lumbosacral region | 06/07/2019 | + + + + + | Overview: Added automatically from request for surgery [id number] | + + + + + | Spondylosis without myelopathy or radiculopathy, cervical region | 03/20/2019 | + + + + + | Overview: Added automatically from request for surgery [id number] | + + + + + | Spondylosis without myelopathy or radiculopathy, lumbosacral | 03/20/2019 | | region | | + + + + + | Overview: Added automatically from request for surgery [id number] | + + + + + | Chronic bilateral low back pain without sciatica | 03/20/2019 | + + + + + | Overview: Added automatically from request for surgery [id number] | + + + + + | Strain of lumbar region | 02/25/2019 | + + + + + | Overview: Added automatically from request for surgery [id number] | + + + + + | Lumbar region somatic dysfunction | 02/25/2019 | + + + + + | Overview: Added automatically from request for surgery [id number] | + + + + + | Chronic low back pain with sciatica | 02/25/2019 | + + + + + | Overview: Added automatically from request for surgery [id number] | + + + + + | Intervertebral disc disorders with radiculopathy, lumbosacral | 02/25/2019 | | region | | + + + + + | Overview: Added automatically from request for surgery [id number] | + + + + + | Spinal stenosis of lumbosacral region | 02/25/2019 | + + + + + | Overview: Added automatically from request for surgery [id number] | + + + + + | [...] Overview: Added automatically from request for surgery [id number] | | Problem List Chaser Apprentice Utility | + + + + + [...] | | 11/23/ | [id number] | | [id number]: Qty: 1 on | | | MEDICAL - | | 2020 | S | | 03/28/2019 by Sonja, | | | STJU | | | /[id number] | | DO Alfredo | | | [...] +------+-------+ + | MEDICARE | MEDICA | [id number] | | | [address] | | | RE | | | | [place] [address] | | | IP-OP | | | | | + +--------+ +------+-------+ + | COMMERCIAL OTHER | COMMER | [id number] | | | | | | CIAL [...] | 1945 | [phone] | [place] [address] | | | jose | | | [phone] | | + +--------+ +--------+ + +
--- OUTSIDE RECORDS SUMMARY | ~2020-03-05 | XMS | Encounter Summary ---
Demographics + + + | Address | [address] | | | [place] [address] | + + + | Home Phone | | + + + | Preferred Language | Unknown | + + + | Marital Status | | + + + | Church Affiliation | 1013 | + + + | Race | Unknown | + + + | Ethnic Group | Unknown | + + + Author + + + | Author | [facility] | | | and Priteshana | + + + | Organization | [facility] | | | [...] Team Providers + +------+ + | Care Guide Changer Name | Role | Phone | + [...] | [address] | [place] | | | | | [address] [place], [place] | [place], [place] | | | | | [address] | [address] | | | | | [phone] | | | +--------+ + + + [...] [place] | | | | | | [address] | | | | | | | | +--------+---------+ + + + | 04/03/ | Office | Cardiology | Zuleyka Castillo DO | | | 2019 | Visit | | [address] | | | | | | [place] | | | | | | [id number] | | | | | | | | +--------+---------+ + + + documented as of this encounter Visit Diagnoses Not on filedocumented in this encounter"
--- OUTSIDE RECORDS SUMMARY | ~2020-03-05 | XMS | Encounter Summary ---
Demographics + + + | Address | [address] | | | [place] [address] | + + + | Home Phone | | + + + | Preferred Language | Unknown | + + + | Marital Status | Single | + + + | Temple Affiliation | NON | + + + [...] Team Providers + +------+ + | Care Lead Java J2Ee Developer Name | Role | Phone | + +------+ + | Oxana Nye | PCP | | + +------+ + Encounter Details +--------+ + + + + | Date | Type | Department | Care Team | Description | +--------+ + + + + | 10/04/ | MyChart | Cardiology General | | Appointment Location | | 2015 | Encounter | at [facility] [address] | | Change: Effective | | | | Ave Mailcode: CH7C | | October 31 | | | | [facility] | | | | | | and Healing, | | | | | | Building | | | | | | Floor [place], [place] | | | | | | [address] | | | | | | [phone] | | | +--------+ + + + [...]
--- OUTSIDE RECORDS SUMMARY | ~2020-03-05 | XMS | Encounter Summary ---
Demographics + + + | Address | [address] | | | [place] [address] | + + + | Home Phone [...] + | Author | [facility] | | | and Priteshana | + + + | Organization | [facility] | | | [...] Team Providers + +------+ + | Care Secret Code Expert Name | Role | Phone | + +------+ + | No, Physician | PCP | Unavailable | + +------+ + Reason for Visit +--------+ + | Reason | Comments | +--------+ + | Pain | | +--------+ + Encounter Details +--------+ + + + + | Date | Type | Department | Care Team | Description | +--------+ + + + + | 12/27/ | Telephone | [facility] [place] | Shay Dietz | Pain | | 2013 | | PHYSIATRY [address] | T, MD [address] | | | | | [address] | [address] [place], [place] | | | | | [place], [place] | [address] | | | | | [address] | | | | | | [phone] | | | +--------+ + + + [...] [place] | | | | | | [address] | | | | | | | | +--------+---------+ + + + | 04/03/ | Office | Cardiology | Zuleyka Castillo DO | | | 2019 | Visit | | [address] | | | | | | [place] | | | | | | [address] | | | | | | | | +--------+---------+ + + + documented as of this encounter Visit Diagnoses Not on filedocumented in this encounter"
--- OUTSIDE RECORDS SUMMARY | ~2020-03-05 | XMS | Encounter Summary ---
Demographics + + + | Address | [address] | | | [place] [address] | + + + | Home Phone [...] Team Providers + +------+ + | Care Lease Purchase Truck Driver Name | Role | Phone | + +------+ + | Romy De La Paz MD | PCP | | + +------+ + Reason for Visit + + + | Reason | Comments | + + + | Advice Only | | + + + | Other | inform office | + + + Encounter Details +--------+ + + + + | Date | Type | Department | Care Team | Description | +--------+ + + + + | 07/05/ | Telephone | [facility] | Maykel Hutchins MD | Advice Only; Other | | 2019 | | [facility] | [address] | (inform office) | | | | ORTHOPEDIC SPINE | HAYLEY SANCHEZ | | | | | [address] [place] | [place] [address] | | | | | [place] | [phone] | | | | | [address] | | | | | | [phone] | | | +--------+ + + + [...] [place] | | | | | | [address] | | | | | | | | +--------+---------+ + + + | 04/03/ | Office | Cardiology | Zuleyka Castillo DO | | | 2019 | Visit | | [address] | | | | | | [place] | | | | | | [address] | | | | | | | | +--------+---------+ + + + + +---------+--------+ + + | Name | Type | Priori | Associated Diagnoses | Order Schedule | | | | ty | | | + +---------+--------+ + + | XR Thoracic Spine 3 | Imaging | Routin | Chronic low back | Expected: | | Vw | | e | pain with sciatica, | 07/05/2019, Expires: | | | | | sciatica laterality | 07/05/2020 | | | | | unspecified, | | | | | | unspecified back | | | | | | pain laterality | | + +---------+--------+ + + | XR Lumbar Spine 4 + | Imaging | Routin | Right lumbar | Expected: | | Vw | | e | radiculopathy | 07/05/2019, Expires: | | | | | | 07/05/2020 | + +---------+--------+ + + documented as of this encounter Visit Diagnoses + + | Diagnosis | + + | Chronic low back pain with sciatica, sciatica laterality unspecified, unspecified back | | pain laterality - Primary | + + | Right lumbar radiculopathy Thoracic or lumbosacral neuritis or radiculitis, | | unspecified | + + documented in this encounter"
--- OUTSIDE RECORDS SUMMARY | ~2020-03-05 | XMS | Encounter Summary ---
Demographics + + + | Address | [address] | | | [place] [address] | + + + | Home Phone [...] Team Providers + +------+ + | Care Continuous Improvement Intern Name | Role | Phone | [...] 2013 | | PHYSIATRY [address] | PRECISION THREAD GRINDER OPERATOR | | | | | [address] | | | | | | [place] | | | | | | [address] | | | | | | [phone] | | | +--------+ + + + [...] [place] | | | | | | [address] | | | | | | | | +--------+---------+ + + + | 04/03/ | Office | Cardiology | Zuleyka Castillo DO | | | 2019 | Visit | | [address] | | | | | | [place] | | | | | | [address] | | | | | | | | +--------+---------+ + + + documented as of this encounter Visit Diagnoses Not on filedocumented in this encounter"
--- OUTSIDE RECORDS SUMMARY | ~2020-03-05 | XMS | Encounter Summary ---
Demographics + + + | Address | [address] | | | [place] [address] | + + + | Home Phone | | + + + | Preferred Language | Unknown | + + + | Marital Status | | + + + | Sikhism Affiliation | 1013 | + + + | Race | Unknown | + + + | Ethnic Group | Unknown | + + + Author + + + | Author | [facility] | | | and Priteshana | + + + | Organization | [facility] | | [...] Team Providers + +------+ + | Care Talent Coordinator Name | Role | Phone | [...] + + | 11/01/ | Office | [facility] [place] | Shay Dietz | Back pain (Primary | | 2012 | Visit | PHYSIATRY [address] | [address] | Dx); BACK PAIN, | | | | [address] | [address] [place], [place] | LUMBAR; | | | | [place], [place] | [address] | OSTEOARTHRITIS, | | | | [address] | | LUMBOSACRAL SPINE; | | | | [phone] | | DISC DISEASE, | | | [...] - 11/01/2012 9:06 AM [facility] [...] our off ice. Please also provide a commercial trailer truck driver to take you home on [...] [place] | | | | | | [address] | | | | | | | | +--------+---------+ + + + | 04/03/ | Office | Cardiology | Zuleyka Castillo DO | | | 2019 | Visit | | [address] | | | | | | [place] | | | | | | [address] | | | | | | | [...]
--- OUTSIDE RECORDS SUMMARY | ~2020-03-05 | XMS | Encounter Summary ---
Demographics + + + | Address | [address] | | | [place] [address] | + + + | Home Phone | | + + + | Preferred Language | Unknown | + + + | Marital Status | | + + + | Orthodoxy Affiliation | 1013 | + + + | Race | Unknown | + + + | Ethnic Group | Unknown | + + + Author + + + | Author | [facility] | | | and Priteshana | + + + | Organization | [facility] | | [...] Team Providers + +------+ + | Care Catch Basin Cleaner Name | Role | Phone | + +------+ + | Miquel Calhoun MD | PCP | | + +------+ + Encounter Details +--------+ + + + + | Date | Type | Department | Care Team | Description | +--------+ + + + + | 09/18/ | Hospital | [facility] | Shay Dietz | | | 2012 | Encounter | MED CTR XRAY [address] | [address] | | | | | [place] | [place], [place] | | | | | [place] [address] | [address] | | | | | [phone] | | | +--------+ + + + [...] [place] | | | | | | [id number] | | | | | | | | +--------+---------+ + + + | 04/03/ | Office | Cardiology | Zuleyka Castillo DO | | | 2019 | Visit | | [address] | | | | | | [place] | | | | | | [address] | | | | | | | | +--------+---------+ + + + documented as of this encounter Visit Diagnoses Not on filedocumented in this encounter"
--- OUTSIDE RECORDS SUMMARY | ~2020-03-05 | XMS | Encounter Summary ---
Demographics + + + | Address | [address] | | | [place] [address] | + + + | Home Phone [...] Team Providers + +------+ + | Care Surgery Technician Name | Role | Phone | + +------+ + | Wendi Aiken | PCP | | + +------+ + Encounter Details +--------+ + + + + | Date | Type | Department | Care Team | Description | +--------+ + + + + | 04/07/ | Imaging | [facility] | Provider, | | | 2018 | Exam | MED CTR EXTERNAL | MD [address] | | | | | IMAGING [address] | Vasquez VALDEZ | | | | | [facility] | [place] [address] | | | | | [place] [address] | | | | | | [phone] | | | +--------+ + + + [...] [place] | | | | | | [address] | | | | | | | | +--------+---------+ + + + | 04/03/ | Office | Cardiology | Zuleyka Castillo DO | | | 2019 | Visit | | [address] | | | | | | [place] | | | | | | [address] | | | | | | | | +--------+---------+ + + + documented as of this encounter Procedures + +--------+ + + + | Procedure Name | Priori | Date/Time | Associated Diagnosis | Comments | | | ty | | | | + +--------+ + + + | MRI BRAIN WO | Routin | 02/25/2018 | | Results for this | | CONTRAST | e | 9:50 AM | | procedure are in the | | | | PDT | | results section. | + +--------+ + + + documented in this encounter Results MRI Brain wo Contrast (02/25/2018 9:50 AM PDT) + + | Specimen | [...]
--- OUTSIDE RECORDS SUMMARY | ~2020-03-05 | XMS | Encounter Summary ---
Demographics + + + | Address | [address] | | | [place] [address] | + + + | Home Phone [...] Team Providers + +------+ + | Care Repair Table Operator Name | Role | Phone | + +------+ + | Romy De La Paz MD | PCP | | + +------+ + Reason for Visit + + + | Reason | Comments | + + + | Medication Follow-up | | + + + Evaluate [...] | | | | spinal | [address] | [facility] [place] | | | | | stenosis | B | [address] | | | | | | [place], [place] | Phone: | | | | | | [address] | [phone] | | | | | | Phone: | Fax: | | | | | | [phone] | [phone] | | | | | | Fax: | | | | | | | [phone] | | + +--------+ + + + + Encounter Details +--------+---------+ + + + | Date | Type | Department | Care Team | Description | +--------+---------+ + + + | 11/14/ | Office | [facility] | Denys Sibley, | S/P insertion of | | 2019 | Visit | [facility] | DO [address] | spinal cord | | | | [address] [place] | stimulator (Primary | | | | [address] | [id number] | Dx); Spinal stenosis | | | | [place] | | of lumbosacral | | | | [address] | | region; Lumbar | | | | [phone] | | region somatic | | | [...] L5-S1; | | | | | | Facet arthritis of | | | | | | lumbar region; | | | | | | Scoliosis of lumbar | | | | | | spine, unspecified | | | | | | scoliosis type; | | | | | | Spondylosis [...] region; | | | | | | Closed compression | | | | | | fracture of L5 | | | | | | lumbar vertebra with | | | | | | routine healing, | | | | | | subsequent | | | | | | encounter; | | | | | | SACROILIITIS; BACK | | | | | | PAIN, LUMBAR; Strain | | | | | | of lumbar region, | | | | | | sequela; Closed | | | | | | compression fracture | | | | | | of fifth lumbar | | | | | | vertebra, sequela | +--------+---------+ + + + Social [...] + + + | Blood Pressure | 99/58 | 11/14/2019 2:05 PM | | | | | PST | | + + + + + | Pulse | 72 | 11/14/2019 2:05 PM | | | | | PST | | + + + + + | Temperature | - | - | | + + + + + | Respiratory Rate | 16 | 11/14/2019 2:05 PM | | | | | PST | | + + + + + | Oxygen Saturation | 99% | 11/14/2019 2:05 PM | | | | | PST | | + + + + + | Inhaled Oxygen | - | - | | | Concentration | | | | + + + + + | Weight | 50.8 kg (112 lb) | 11/14/2019 2:05 PM | | | | | PST | | + + + + + | Height | 154.9 cm (5' 1") | 11/14/2019 2:05 PM | | | | | PST | | + + + + + | Body Mass Index | 21.16 | 11/14/2019 2:05 PM | | | | | PST | | + + + + + documented in this encounter Progress Notes Denys Sibley, DO - 11/14/2019 2:15 PM PSTFormatting of this note might be different fr om the original. CHRONIC PAIN VISIT Patient ID: Kori Rubio is a 74 y.o. female (: 1945). 74-year-old female seen back to the office today for medication evaluation follow-up. Subjective: Chronic Pain:Current medication: [place] 10/325 1 p.o. every 4 hours as needed pain Kori Rubio presents for chronic pain [...] including but not limited to physical therapy, before and after school daycare worker, acupuncture, massage therapy, and nutritional healt h counselors. and mental health counselors as deemed necessary Today's Pain Score: 3/10. Patient states that her pain overall has [...] Author Status Filed Medication Agreement Rupa Nye, Documentation Nurse Active 11/14/2019 1:49 PM Pain Contract- Dr. Sibley 11/14/2019 PEG Pain screening tool (Pain, enjoyment, general activity) Total score: (Printable questionnaires in Bots[place]an ) Interpretation of Total Score: PEG scores are used to track changes over time. It should de crease after therapy has begun. Last 4 PEG Scores: No flowsheet data found. Opioid Risk Tool (ORT): Total Score Pulse: 72 Resp: 16 BP: 99/58 SpO2: 99 % (From Chronic Pain tab; printable questionnaires in Bots[place]an) Interpretation of Total Score: 0 to 3 = Low risk: 6% chance of developing problematic behav iors, 4 to 7 = Moderate risk: 28% chance of developing problematic behaviors, 8 or more = Hi gh risk: 90% chance of developing problematic behaviors. No flowsheet data found. Outpatient Morphine Equivalent Daily Dose (MEDD) 11/14/19 - 12/14/19 60 mg MEDD Order Name Dose Route [...] factor of 1 = 60 mg MEDD 12/15/19 and after None @PAINMEDS@ Current Outpatient Medications: [...] TABLET BY MOUTH 5 TIMES A WEEK (Tuesday), Disp: , Rfl: 0 HYDROcodone-acetaminophen (NORCO) 10-325 [...] Date Acid reflux disease Acute renal failure ([facility]) April 2013 Adverse effect of anesthesia hx hallucinations after anesthesia x 3 yrs ago. Anesthesia hallucinated after bladder repair Arthralgia Arthritis Asthma Asthma Back pain Cancer ([facility]) 2004 breast Cataract Cerebrovascular accident (CVA) ([facility]) no per pt Chronic back pain Chronic back pain Chronic constipation Concussion 07/2015 Preceeded by seizure Constipation COPD (chronic obstructive pulmonary disease) ([facility]) Degenerative disc disease Depression Depression Diabetes mellitus ([facility]) Diabetes mellitus, type 2 ([facility]) diet controlled Diabetes type 2, controlled ([facility]) diet controlled Diarrhea Disorder of [...] Drug use: No Mood Screening: PHQ-9 Depression Scale5 (5-9 = Mild, 10-14 = Moderate, 15-19 = Moderately Severe, 20-27 = Severe) Anxiety Scale 5(5-9 = Mild, 10-14 = Moderate, 15-21 = [...] Date Acid reflux disease Acute renal failure ([facility]) April 2013 Adverse effect of anesthesia hx hallucinations after anesthesia x 3 yrs ago. Anesthesia hallucinated after bladder repair Arthralgia Arthritis Asthma Asthma Back pain Cancer ([facility]) 2004 breast Cataract Cerebrovascular accident (CVA) ([facility]) no per pt Chronic back pain Chronic back pain Chronic constipation Concussion 07/2015 Preceeded by seizure Constipation COPD (chronic obstructive pulmonary disease) ([facility]) Degenerative disc disease Depression Depression Diabetes mellitus ([facility]) Diabetes mellitus, type 2 ([facility]) diet controlled Diabetes type 2, controlled ([facility]) diet controlled Diarrhea Disorder of [...] Procedure: KYPHOPLASTY; Surgeon: Alfredo Casillas DO; Location: [facility] MAIN OR; Service: Pa in Management; Laterality: N/A; L5 FRACTURE SURGERY ANKLE HERNIA REPAIR HYSTERECTOMY HYSTERECTOMY LAMINECTOMY N/A 08/03/2019 Procedure: LAMINOTOMY THORACIC / LUMBAR W/ PLACEMENT SPINAL CORD STIMULATOR; Surgeon: Suly Hutchins MD; Location: [facility] OTHER SURGICAL HISTORY EPIDURAL STEROID INJECTION OTHER SURGICAL HISTORY 08/28/2018 EPIDURAL STEROID INJECTION - LESI L4-L5 OTHER SURGICAL HISTORY 09/11/2018 EPIDURAL STEROID INJECTION - LESI L5-S1 OTHER SURGICAL HISTORY UNLISTED PROCEDURE ARTHROSCOPY SLING REMOVAL , BLADDER 2006 TUBAL LIGATION UPPER GASTROINTESTINAL ENDOSCOPY Review of Systems Objective: Vital Signs: BP 99/58 | Pulse 72 | Resp 16 | Ht 1.549 m (5' 1") | Wt 50.8 kg (112 lb) | LMP (LMP Unknown) | SpO2 99% | BMI 21.16 kg/m Physical Exam No results found for this or any previous visit (from the past 672 hour(s)). @ASSESSMENTPLANBEGIN@ 74-year-old female seen back in the office for medication evaluation follow-up. Patient vital signs stable skin texture and turgor good she bowel bladder continent without constipation problems on current medications. Active range of motion bilateral upper extremities limited shoulder flexion abduction to ap proximately 125 degrees. With pain greater than 90 degrees. [...] of medications since last visit. The patien logan has been consistently compliant with her pain contract requirements. @ is actively doing t hings other than taking medication to help manage her pain. The Patient's ongoing expectations of chronic pain treatment were reviewed Her ongoing functional goals were reviewed. Medication side effects are tolerable. [place] / [place] PDMP reviewed, listed controlled substances are consistent with [facility] prescriptions and patient reported use. [...] = high risk) Daily Opioid Dose = [place] 10/325 1 p.o. every 4 hours. Daily Morphine Equivalent Dose (MED) = 60 mg of morphine daily Chronic benzodiazepine use: yes, Patient gets Klonopin from primary care physician for anxi ety disorder however this person appears to be retiring and they are searching for another s ource of medication Pain Agreement (date): {YES/2019Visits Every month Drug Screen every: 3 times a Next Refill due: 30 days Follow-up: Patient will follow-up in this office in 4 weeks. Patient states her current medication provides significant pain relief and improve quality life. She remains off the fentanyl patch. Continues with the [place] 10/325 1 p.o. every 4 h ours as needed pain and will slowly taper herself down on a as needed basis. Greater than 50% of the time of this visit was spent counseling the patient regarding medic ation management and/or coordinating care with other practitioners including Allied health p rofessionals and laboratory monitoring. No notes on file @ASSESSMENTPLANEND@ Alternative treatment modalities where discussed and offered to patient including but not l imited to physical therapy, massage therapy, acupuncture, before and after school daycare worker, along with niki mmended psychological counseling, either privately, or in group sessions offered by private care individuals, community services, or zoroastrian organizations. Appropriate referrals were made at patient [...] are noted in men and women. Ma vt men will suffer erectile dysfunction with these [...] weeks. This document has been created using Opposing Views Recognition software and [employer]. The entry has been reviewed for content and accuracy, but there may still exist "sound alike" hospital educator word errors and/or unintended additions and deletions. If there is any question please contact the author of the document: Denys Sibley DOElectronically sig marianne by Denys Sibley DO at 11/14/2019 2:31 PM PSTdocumented in this encounter Plan of Treatment +--------+---------+ + + + | Date | Type | Specialty | Care Team | Description | +--------+---------+ + + + | 03/17/ | Office | Pain Medicine | Denys Sibley, | | 2019 | Visit | | DO [address] | | | | | | [place] | | | | | | [phone] | | | | | | | | +--------+---------+ + + + | 04/03/ | Office | Cardiology | Zuleyka Castillo DO | | 2019 | Visit | | [address] | | | | | | [place] | | | | | | [phone] | | | | | | | [...] other medications | + + | Chronic bilateral low back pain with right-sided sciatica | + + | 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 Spinal stenosis, lumbar region, | | without neurogenic claudication | + + | Facet arthritis of lumbar region Lumbosacral spondylosis without myelopathy | + + | Scoliosis of lumbar spine, unspecified scoliosis type | + + | Spondylosis without myelopathy or radiculopathy, lumbosacral region | + + | Spondylosis without myelopathy or radiculopathy, cervical region | + + | Closed compression fracture of L5 lumbar vertebra with routine healing, subsequent | | encounter | + + | SACROILIITIS Sacroiliitis, not elsewhere classified | + + | BACK PAIN, LUMBAR Lumbago | + + | Strain of lumbar region, sequela | + + | Closed compression fracture of fifth lumbar vertebra, sequela | + + documented in this encounter
--- OUTSIDE RECORDS SUMMARY | ~2020-03-05 | XMS | Clinical Summary ---
Demographics + + + | Address | [address] | | | [place] [address] | + + + | Home Phone | | + + + | Preferred Language | Unknown | + + + | Marital Status | | + + + | Jew Affiliation | 1013 | + + + [...] Team Providers + +------+ + | Care Screen Printer Name | Role | Phone | + +------+ + | Romy De La Paz MD | PCP | | + +------+ + Allergies + + + + + + | Active Allergy | Reactions | Severity | Noted | Comments | | | | | Date | | + + + + + + | Zolpidem | Hallucination | | 11/01/19 | | | | | | 13 | | + + + + + + | Lorazepam | Hallucination | | 09/18/20 | | | | | | 12 | | + + + + + + | Prednisolone | Other (See Comments) | Medium | 07/17/20 | | | | | | 14 | Depression/suicidal | + + + + + + Medications + + + +---------+------+------+-------+ | Medication | Sig | Dispensed | Refills | Star | End | Statu | | | | | | t | Date | s | | | | | | Date | | | + + + +---------+------+------+-------+ | Loratadine 10 MG | Take 10 mg by mouth | | 0 | | | Activ | | CAPS | Daily as needed. | | | | | e | + + + +---------+------+------+-------+ | levothyroxine | Take 100 mcg by | | 0 | | | Activ | | (SYNTHROID) 100 mcg | mouth every morning | | | | | e | | tablet | (before breakfast). | | | | | | + + + +---------+------+------+-------+ | clonazePAM | Take 1-2 mg by mouth | | 0 | | | Activ | | (KLONOPIN) 1 mg | nightly as needed | | | | | e | | tablet | for Anxiety. 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 | | | | | | + + + +---------+------+------+-------+ | ALBUTEROL IN | Inhale into the | | 0 | | | Activ | | | lungs. | | | | | e | + + + +---------+------+------+-------+ | rOPINIRole | Take 2 mg by mouth 4 | | 3 | 07/31 | | Activ | | (REQUIP) 2 MG tablet | times daily. | | | 0 | | e | | | | | | 19 | | | + + + +---------+------+------+-------+ | | Apply to affected | 5800 g | 3 | 10/31 | 10/31 | Activ | | lidocaine-prilocaine | area 2 or 3 times a | | | 03/19 | 02/17 | e | | (EMLA) | day | | | 20 | 21 | | | creamIndications: | | | [...] | Take 500 mg by mouth | 120 | 3 | 01/29 | | Activ | | (ROBAXIN) 500 mg | 4 (four) times | tablet | | 05/19 | | e | | tabletIndications: | daily. | | | 20 | | | | S/P insertion of | | | | | | | | spinal cord | | | | | | | | stimulator, Spinal | | | | | | [...] sequela | | | | | | | + + + +---------+------+------+-------+ | | Take 1 tablet by | 180 | 0 | 04/1 | 05/1 | Activ | | HYDROcodone-acetamin | mouth every 4 hours | tablet | | 05/19 | 05/19 | e | | ophen (NORCO) 10-325 | as needed for Pain | | | 20 | 20 | | | mg per | for up to 30 days. | | | | | | | tabletIndications: | | | | | | | | Spinal stenosis of | | | | | | | | lumbosacral region, | | | | | | | | Lumbar region | | | | | | | | somatic dysfunction, | | | | | | | | Intractable back | | | | | | | | pain, Degenerative | | | | | | | | lumbar spinal | | | | | | | | stenosis, Chronic | | | | | | | | pain disorder | | | | | | | + + + +---------+------+------+-------+ | apixaban (ELIQUIS) | Take 1 tablet by | 180 | 3 | 04/3 | | Activ | | 5 mg tablet | mouth 2 times daily. | tablet | | 0/20 | | e | | | | | | 20 | | | + + + +---------+------+------+-------+ | metoprolol | Take 1 tablet by | 30 | 11 | 04/3 | | Activ | | succinate | mouth Daily. | tablet | | 0/20 | | e | | (TOPROL-XL) 25 mg 24 | | | | 20 | | | | hr tablet | | | | | | | + + + +---------+------+------+-------+ | rOPINIRole | Take 4 mg by mouth 4 | | 0 | | 04/3 | Disco | | (REQUIP) 4 mg tablet | times daily. | | | | 0/20 | ntinu | | | | | | | 20 | ed | | | | | | | | (Ther | | | | | | | | apy | | | | | | | | compl | | | | | | | | eted) | + + + +---------+------+------+-------+ | Multiple | Take 1 tablet by | | 0 | | 04/3 | Disco | | Vitamins-Minerals | mouth daily. | | | | 0/20 | ntinu | | (MULTIVITAMIN WITH | | | | | 20 | ed | | MINERALS) tablet | | | | | | (Ther | | | | | | | | apy | | | | | | | | compl | | | | | | | | eted) | + + + +---------+------+------+-------+ | ondansetron | Take 24 mg by mouth | | 0 | | 04/3 | Disco | | (ZOFRAN) 24 MG | once. | | | | 0/20 | ntinu | | tablet | | | | | 20 | ed | | | | | | | | (Ther | | | | | | | | apy | | | | | | | | compl | | | | | | | | eted) | + + + +---------+------+------+-------+ | raNITIdine | Take 150 mg by mouth | | 0 | | 01/31 | Disco | | (ZANTAC) 150 mg | 2 (two) times | | | | 0/20 | ntinu | | tablet | daily. | | | | 20 | ed | | | | | | | | (Ther | | | | | | | | apy | | | | | | | | compl | | | | | | | | eted) | + + + +---------+------+------+-------+ | chlorhexidine | Apply to affected | 118 mL | 0 | 09/ | 04/3 | Disco | | (HIBICLENS) 4 % | area the night | | | 07/20 | 0/20 | ntinu | | external liquid | before and the | | | 19 | 20 | ed | | | morning of surgery. | | | | | (Ther | | | | | | | | apy | | | | | | | | compl | | | | | | | | eted) | + + + +---------+------+------+-------+ | Calcium | Take by mouth. | | 0 | | 04/3 | Disco | | Carb-Cholecalciferol | | | | | 0/20 | ntinu | | (CALCIUM 1000 + D | | | | | 20 | ed | | PO) | | | | | | (Ther | | | | | | | | apy | | | | | | | | compl | | | | | | | | eted) | + + + +---------+------+------+-------+ | Ascorbic Acid | Take 1,000 mg by | | 0 | | 04/3 | Disco | | (VITAMIN C) 1000 MG | mouth Daily. | | | | 0/20 | ntinu | | tablet | | | | | 20 | ed | | | | | | | | (Ther | | | | | | | | apy | | | | | | | | compl | | | | | | | | eted) | + + + +---------+------+------+-------+ | nitroglycerin | Place 0.4 mg under | | 0 | | 04/3 | Disco | | (NITROSTAT) 0.4 mg | the tongue every 5 | | | | 0/20 | ntinu | | SL tablet | minutes as needed | | | | 20 | ed | | | for Chest pain. | | | | | | + + + +---------+------+------+-------+ | ofloxacin | INSTILL 10 DROPS | | 0 | 11/1 | 04/3 | Disco | | (OCUFLOX) 0.3% | INTO AFFECTED EAR | | | 7/20 | 0/20 | ntinu | | ophthalmic solution | EVERY 12 HOURS FOR 7 | | | 19 | 20 | ed | | | DAYS | | | | | (Ther | | | | | | | | apy | | | | | | | | compl | | | | | | | | eted) | + + + +---------+------+------+-------+ | XARELTO 20 MG | TAKE 1 TABLET BY | | 0 | 12/0 | 04/3 | Disco | | tablet | MOUTH ONCE DAILY | | | 4/20 | 0/20 | ntinu | | | | | | 19 | 20 | ed | + + + +---------+------+------+-------+ | promethazine | TAKE 1 TABLET BY | | 0 | 11/2 | 04/3 | Disco | | (PHENERGAN) 25 mg | MOUTH EVERY 6 HOURS | | | /20 | 0/20 | ntinu | | tablet | NEEDED FOR NAUSEA | | | 19 | 20 | ed | | | | | | | | (Ther | | | | | | | | apy | | | | | | | | compl | | | | | | | | eted) | + + + +---------+------+------+-------+ | digoxin (LANOXIN) | TAKE 1 TABLET BY | | 0 | | 01/31 | Disco | | 125 mcg tablet | MOUTH 5 TIMES A WEEK | | | 01/17 | 0/20 | ntinu | | | (TUESDAY THRU | | | 19 | 20 | ed | | | TUESDAY) | | | | | (Ther | | | | | | | | apy | | | | | | | | compl | | | | | | | | eted) | + + + +---------+------+------+-------+ | benzonatate | TAKE 1 CAPSULE BY | | 0 | 09/01 | 01/31 | Disco | | (TESSALON) 100 mg | MOUTH THREE TIMES | | | /20 | 0/20 | ntinu | | capsule | DAILY NEEDED FOR | | | 19 | 20 | ed | | | COUGH | | | | | (Ther | | | | | | | | apy | | | | | | | | compl | | | | | | | | eted) | + + + +---------+------+------+-------+ | nitrofurantoin | TAKE 1 CAPSULE BY | | 0 | 11/2 | 04/3 | Disco | | (MACROBID) 100 mg | MOUTH TWICE DAILY | | | 5/20 | 0/20 | ntinu | | capsule | | | | 19 | 20 | ed | | | | | | | | (Ther | | | | | | | | apy | | | | | | | | compl | | | | | | | | eted) | + + + +---------+------+------+-------+ | metoprolol | TAKE 1 2 (ONE HALF) | | 0 | 12/3 | 04/3 | Disco | | tartrate (LOPRESSOR) | TABLET BY MOUTH | | | 0/20 | 0/20 | ntinu | | 25 mg tablet | TWICE DAILY FOR 30 | | | 19 | 20 | ed | | | DAYS | | | | | | + + + +---------+------+------+-------+ | | Take 1 tablet by | 180 | 0 | 03/1 | 04/1 | Disco | | HYDROcodone-acetamin | mouth every 4 hours | tablet | | 6/20 | 7/20 | ntinu | | ophen (NORCO) 10-325 | as needed for Pain | | | 20 | 20 | ed | | mg per | for up to 30 days. | | | | | (Reor | | tabletIndications: | | | | | | peter) | | Spinal stenosis of | | | | | | | | lumbosacral region, | | | | | | | | Lumbar region | | | | | | | | somatic dysfunction, | | | | | | | | Intractable back | | | | | | | | pain, Degenerative | | | | | | | | lumbar spinal | | | | | | | | stenosis, Chronic | | | | | | | | pain disorder | | | | | | | + + + +---------+------+------+-------+ | methocarbamol | Take 500 mg by mouth | 120 | 3 | 12/29 | 01/29 | Disco | | (ROBAXIN) 500 mg | 4 (four) times | tablet | | 04/19 | 05/19 | ntinu | | tabletIndications: | daily. | | | 20 | 20 | ed | | S/P insertion of | | | | | | (Reor | | spinal cord | | | | | | peter) | | stimulator, Spinal | | | | | | [...] sequela | | | | | | | + + + +---------+------+------+-------+ Active Problems + + + | Problem | Noted Date | + + + | S/P insertion of spinal cord stimulator | 08/16/2019 | + + + | Spondylosis without myelopathy or radiculopathy, cervical region | 03/20/2019 | + + + + + | Overview: Added automatically from request for surgery [id number] | + + + + + | Spondylosis without myelopathy or radiculopathy, lumbosacral | 03/20/2019 | | region | | + + + + + | Overview: Added automatically from request for surgery [id number] | + + + + + | Chronic bilateral low back pain without sciatica | 03/20/2019 | + + + + + | Overview: Added automatically from request for surgery [id number] | + + + + + | Intervertebral disc disorders with radiculopathy, lumbosacral | 02/25/2019 | | region | | + + + + + | Overview: Added automatically from request for surgery [id number] | + + + + + | Chronic low back pain with sciatica | 02/25/2019 | + + + + + | Overview: Added automatically from request for surgery [id number] | + + + + + | Lumbar region somatic dysfunction | 02/25/2019 | + + + + + | Overview: Added automatically from request for surgery [id number] | + + + + + | Strain of lumbar region | 02/25/2019 | + + + + + | Overview: Added automatically from request for surgery [id number] | + + + + + | Spinal stenosis of lumbosacral region | 02/25/2019 | + + + + + | Overview: Added automatically from request for surgery [id number] | + + + + + | Chronic pain disorder | 11/21/2018 | + + + | Encounter for long-term use of opiate analgesic | 11/21/2018 | + + + | Degenerative lumbar spinal stenosis | 11/12/2018 | + + + | Closed compression fracture of L5 vertebra | 06/07/2018 | + + + + + | Overview: Added automatically from request for surgery [id number] | | 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 | + + + + + | Right lumbar radiculopathy | 07/12/2017 | + + + | Palpitations | 03/09/2016 | + + + | Chest pain | 03/09/2016 | + + + | Peripheral vertigo | 11/20/2015 | + + + | Cervical radiculopathy | 07/26/2014 | + + + | Myelopathy | 07/26/2014 | + + + | Intractable back pain | 07/17/2014 | + + + | Scoliosis of lumbar spine | 04/17/2014 | + + + | 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 | 12/19/2013 | + + + | Depression with suicidal ideation | 12/09/2013 | + + + | PPS (pelvic pain syndrome) | 12/09/2013 | + + + | Recurrent UTI | 12/09/2013 | + + + | Anxiety state | 11/19/2013 | + + + | Gait difficulty | 11/19/2013 | + + + | History of oral aphthous ulcers | 11/19/2013 | + + + | Impaired mobility and ADLs | 11/19/2013 | + + + | Aspiration pneumonia | 11/17/2013 | + + + | COPD (chronic obstructive pulmonary disease) | 11/17/2013 | + + + | Hypothyroid | 11/17/2013 | + + + | Low back ache | 11/17/2013 | + + + | Anemia, unspecified | 11/16/2013 | + + + | Acute alcoholic intoxication | 11/15/2013 | + + + | Acute respiratory failure | 11/15/2013 | + + + | Coma | 11/15/2013 | + + + | Hypotension, unspecified | 11/15/2013 | + + + | Metabolic acidosis | 11/15/2013 | + + + | Other shock | 11/15/2013 | + + + | Overdose of muscle relaxant | 11/15/2013 | + + + | Chronic low back pain | 08/26/2013 | + + + | Facet arthritis of lumbar region | 08/26/2013 | + + + | Acute renal failure | 08/16/2013 | + + + | [...] + +---+ + + | Overview: LOUISE [id number] Decision | + + + +---+ | [...] | +--------+ + + + + | 02/27/ | Office | Cardiology | Zuleyka Castillo, | Palpitations | 2019 | Visit | | | (Primary Dx); | | | | | | Paroxysmal atrial | | | | | | fibrillation (HCC) | +--------+ + + + + | 02/17/ | Telephone | Pain Medicine | Denys Sibley, | Imaging (MRI order) | | 2020 | | | DO | | +--------+ + + + + | 02/14/ | Office | Pain Medicine | Denys Sibley, | S/P insertion of | | 2020 | Visit | | DO | spinal cord | | | | | | stimulator (Primary | | | | | | Dx); Spinal stenosis | | | | | | of lumbosacral | | | | | | region; Lumbar | | | | | | [...] | | | | | sequela | +--------+ + + + + | 02/10/ | Telephone | Pain Medicine | Denys Sibley, | Appointment | | 2020 | | | DO | | +--------+ + + + + | 01/13/ | Office | Pain Medicine | Denys Sibley, | S/P insertion of | | 2019 | Visit | | DO | spinal cord | | | | | | stimulator (Primary | | | | | | Dx); Spinal stenosis | | | | | | of lumbosacral | | | | | | region; Lumbar | | | | | | [...] | | | | | sequela | +--------+ + + + + | 12/17/ | Office | Pain Medicine | Denys Sibley, | S/P insertion of | | 2020 | Visit | | DO | spinal cord | | | | | | stimulator (Primary | | | | | | Dx); Spinal stenosis | | | | | | of lumbosacral | | | | | | region; Lumbar | | | | | | [...] unspecified | +--------+ + + + + from Last 3 Months Immunizations + + + + | Name | Administration Dates | Next Due | + + + + | PNEUMOCOCCAL | 07/18/2014 | | | POLYSACCHARIDE | | | | 23-VALENT (PPSV23) | | | + + + + Family History + + +--------+ + | Medical History | Relation | Name | Comments | + + +--------+ + | Heart attack | Brother | | | + + +--------+ + | Heart failure | Brother | | | + + +--------+ + | No known problems | Child | | | + + +--------+ + | Alcohol abuse | Father | | | + + +--------+ + | Lung cancer | Father | | | + + +--------+ + | Parkinsonism | Maternal | | | | | Grandfath | | | | | er | | | + + +--------+ + | No known problems | Maternal | | | | | [...] | + + +--------+ + | Renal failure | Mother | | | + + [...] | + + +--------+ + | No known problems | Son | Giuseppe | | + + +--------+ + | No known problems | Son | Destiny | | + + +--------+ + | Malig hypertherm | Neg Hx | | | + + +--------+ + + +--------+ + + | Relation | Name | Status | Comments | + +--------+ + + | Brother | | | [place] | | | | (Age | | [...] recent travel history available. | + + Last Filed Vital Signs + [...] | | + + + + + Plan of Treatment +--------+---------+ + + + | Date | Type | Specialty | Care Team | Description | +--------+---------+ + + + | 03/17/ | Office | Pain Medicine | Denys Sibley, | | | 2019 | Visit | | DO [address] | | | | | | [place] | | | | | | [address] | | | | | | | | +--------+---------+ + + + | 04/03/ | Office | Cardiology | Zuleyka Castillo DO | | | 2019 | Visit | | [address] | | | | | | [place] | | | | | | [address] | | | | | | | [...] | | | Dtap/Tdap/Td (1 - | 8 | | | | Tdap) | | | | + + + + + | Vaccine: Zoster (1 | | | | | of 2) | 7 | | | + + + + + | Breast Cancer | | | | | Screening | 2 | | | + + + + + | Colorectal Cancer | | 11/19/2013 | | | Screening (FIT) | 5 | | | + + + + + | Adult Annual | | | | | Wellness Visit | 5 | | | + + + + + | Statin Therapy | | | | | (optimal intensity) | 5 | | | + + + + + | Vaccine: | | 07/18/2014 | | | Pneumococcal 65+ (2 | 5 | | | | of 2 - PCV13) | | | | + + + + + | Urine Drug Screening | | 06/23/2018 | | | | 9 | | | + + + + + | Vaccine: Influenza | | | | | (Season Ended) | 0 | | | + + + + + Implants + +--------+--------+ +--------+--------+--------+ | Implanted | Type | Area | Manufacture | Device | Shelf | Model | | | | | r | | Expira | / | | | | | | Identi | tion | Serial | | | | | | fier | Date | / Lot | + +--------+--------+ +--------+--------+--------+ | Stim Nrv Lead Penta Spn 3mm - | Neurol | N/A: | [facility] | | 03/04/ | [id number] | | [id number]: Qty: 1 | ogical | Spine | MEDICAL - | | 2020 | S | | on 08/03/2019 by Cuong, | | Lumbar | STJU | | | /[id number] | | MD Maykel at [facility] | Stimul | | | | | 444 | | [facility] | ator | | | | | /NA | + +--------+--------+ +--------+--------+--------+ | Autopax W/Vertaplex | | N/A: | YULIYA | | 06/30/ | [id number] | | HvImplanted: Qty: 1 on | | Back | MEDICAL - | | 2019 | 22-015 | | 06/13/2018 by Alfredo Casillas, | | | STRY | | | / | | DO | | | | | | /[id number] | | | | | | | | 2 | + +--------+--------+ +--------+--------+--------+ | Stim Nrv Lead Octrode 60cm - | | | [facility] | | 11/23/ | [id number] | | [id number]: Qty: 1 on | | | MEDICAL - | | 2020 | S | | 03/28/2019 by Sonja, | | | STJU | | | /[id number] | | DO Alfredo | | | | | | 330 / | + +--------+--------+ +--------+--------+--------+ | Proclaim 5 EliteImplanted: | | N/A: | [facility] | | 01/15/ | 3660 | | Qty: 1 on 08/03/2019 by Cuong, | | Spine | MEDICAL - | | 2020 | /[id number] | | MD Maykel at [facility] | | Lumbar | STJU | | | 6.1 | | [facility] | | | | | | /NA | + +--------+--------+ +--------+--------+--------+ Procedures + +--------+ + + + [...] + + from Last 3 Months Results ECG 12 lead (02/28/2020 1:16 PM [...] MD | | | | | | (2353) on 03/04/2020 | | | | | [...] | | | + +---------+ + + from Last 3 Months Insurance + +--------+ +--------+ +---------+--------+ | Payer | Benefi | Subscriber | Effect | Phone | Address | Type | | | t Plan | ID | qamar | | | | | | / | | Dates | | | | | | Group | | | | | | + +--------+ +--------+ +---------+--------+ | INDIVIDUAL ASSURANCE | INDIVI | [id number] | | | | Indemn | | COMPANY | DUAL | | 016-Pr | | | ity | | | ASSURA | | esent | | | | | | [place] | | | | | | | | MDCR | | | | | | | | SUPPL | | | | | | + +--------+ +--------+ +---------+--------+ | MEDICARE | MEDICA | [id number] | | [phone] | | Medica | | | RE | | 991-Pr | 5 | | re | | | PART A | | esent | | | | | | AND B | | | | | | + +--------+ +--------+ +---------+--------+ | MEDICARE | MEDICA | [id number] | | [phone] | | Medica | | | RE | | 991-Pr | 5 | | re | | | PART A | | esent | | | | | | AND B | | | | | | + +--------+ +--------+ +---------+--------+ | MEDICARE | MEDICA | [id number] | | [phone] | | Medica | | | RE | | 991-Pr | 5 | | re | | | PART A | | esent | | | | | | AND B | | | | | | + +--------+ +--------+ +---------+--------+ | MEDICARE | MEDICA | [id number] | | [phone] | | Medica | | | RE | | 991-Pr | 5 | | re | | | PART A | | esent | | | | | | AND B | | | | | | + +--------+ +--------+ +---------+--------+ | INDIVIDUAL ASSURANCE | INDIVI | [id number] | | | | Indemn | | COMPANY | DUAL | | 016-Pr | | | ity | | | ASSURA | | esent | | | | | | [place] | | | | | | | | MDCR | | | | | | | | SUPPL | | | | | | + +--------+ +--------+ +---------+--------+ | INDIVIDUAL ASSURANCE | INDIVI | [id number] | | | | Indemn | | COMPANY | DUAL | | 016-Pr | | | ity | | | ASSURA | | esent | | | | | | [place] | | | | | | | | MDCR | | | | | | | | SUPPL | | | | | | + +--------+ +--------+ +---------+--------+ | INDIVIDUAL ASSURANCE | INDIVI | [id number] | | | | Indemn | | COMPANY | DUAL | | 017-Pr | | | ity | | | ASSURA | | esent | | | | | | [place] | | | | | | | | MDCR | | | | | | | | SUPPL | | | | | | + +--------+ +--------+ +---------+--------+ + +--------+ +--------+ + + | Guarantor Name | Accoun | Relation to | Date | Phone | Billing Address | | | t Type | Patient | of | | | | | | | | | | + +--------+ +--------+ + + | Tyrese Rubio | Person | Self [birth year] | [address] | | mandeep Caputo | al/Fam | | 1945 | [phone] | [place] [address] | | | jose | | | 8 (Home) | | + +--------+ +--------+ + + | McintoshSkinnyXiong | Person | Self [birth year] | [address] | | mandeep Harshal | al/Fam | | 1945 | [phone] | [place] [address] | | | jose | | | 8 (Home) | | + +--------+ +--------+ + + | McintoshSkinnyXiong | Person | Self | [birth year] | [address] | | mandeep Harshal | al/Fam | | 1945 | [phone] | [place] [address] | | | jose | | | 8 (Home) | | + +--------+ +--------+ + + | McintoshSkinnyXiong | Person | Self [birth year] | [address] | | mandeep Harshal | al/Fam | | 1945 | [phone] | [place] [address] | | | jose | | | 8 (Home) | | + +--------+ +--------+ + + Advance Directives + + + + + | Type | Date Recorded | Patient | Explanation | | | | Records Clerk | | + + + + + | Power of | | | | | Automotive Service Technician | | | | + + + + + | Advance | 08/05/2014 12:59 | | | | Directive | PM | | | + + + + + + + + + + | Code Status | Date | Date | Comments | | | Activated | Inactivated | | + + + + + | Full Code | 08/03/2019 | 08/04/2019 | | | | 7:15 PM | 5:33 PM | | + + + + + + + + +---+ | | | | | + + + +---+ | Full Code | 08/03/2019 | 08/03/2019 | | | | 1:33 PM | 7:15 PM | | + + + +---+
--- OUTSIDE RECORDS SUMMARY | ~2020-03-05 | XMS | Encounter Summary ---
Demographics + + + | Address | [address] | | | [place] [address] | + + + | Home Phone [...] Team Providers + +------+ + | Care Steel Detailer Name | Role | Phone | + [...] | | | | | [address] | | | | | | [place], [place] | | | | | | [address] | | | | | | [phone] | | | +--------+ + + + [...] [place] | | | | | | [address] | | | | | | | | +--------+---------+ + + + | 04/03/ | Office | Cardiology | Zuleyka Castillo DO | | | 2019 | Visit | | [address] | | | | | | [place] | | | | | | [address] | | | | | | | | +--------+---------+ + + + documented as of this encounter Visit Diagnoses Not on filedocumented in this encounter
--- OUTSIDE RECORDS SUMMARY | ~2020-03-05 | XMS | Encounter Summary ---
Demographics + + + | Address | [address] | | | [place] [address] | + + + | Home Phone [...] Team Providers + +------+ + | Care Analytical Chemistry Teacher Name | Role | Phone | + +------+ + | Romy De La Paz MD | PCP | | + +------+ + Reason for Visit + + + | Reason | Comments | + + + | Pharmacy / Med | question | + + + Encounter Details +--------+ + + + + | Date | Type | Department | Care Team | Description | +--------+ + + + + | 11/19/ | Telephone | [facility] | Denys Sibley, | Pharmacy / Med | | 2020 | | [facility] | DO [address] | (question) | | | | [address] [place], [place] | | | | | [address] | [address] | | | | | [place], [place] | | | | | | [address] | | | | | | [phone] | | | +--------+ + + + [...] [place] | | | | | | [address] | | | | | | | | +--------+---------+ + + + | 04/03/ | Office | Cardiology | Zuleyka Castillo DO | | | 2019 | Visit | | [address] | | | | | | [place] | | | | | | [address] | | | | | | | | +--------+---------+ + + + documented as of this encounter Visit Diagnoses Not on filedocumented in this encounter"
--- OUTSIDE RECORDS SUMMARY | ~2020-03-05 | XMS | Encounter Summary ---
Demographics + + + | Address | [address] | | | [place] [address] | + + + | Home Phone [...] + + + | Author | [facility] | + + + | Organization | [facility] | + + + | Address | Unknown | + + + | Phone | Unavailable | + + + Support + + +---------+ + | Name | Relationship | Address | Phone | + + +---------+ + | Royce Menchaca | ECON | Unknown | | + + +---------+ + Care Team Providers + +------+ + | Care Quantitative Researcher Name | Role | Phone | + +------+ + | Oxana Nye | PCP | | + +------+ + Encounter Details +--------+ + + + + | Date | Type | Department | Care Team | Description | +--------+ + + + + | 03/30/ | MyChart | Cardiology General | Airam Fuchs MD | re:heart monitor | | 2015 | Encounter | at [facility] [address] | [address] | | | | | Ave Mailcode: CH7C | [facility] [address], | | | | | [facility] | [place] [address] | | | | | and Healing, | [phone] | | | | | [facility] | | | | | | Floor [place], [place] | | | | | | [address] | | | | | | [phone] | | | +--------+ + + + [...]
--- OUTSIDE RECORDS SUMMARY | ~2020-03-05 | XMS | Encounter Summary ---
Demographics + + + | Address | [address] | | | [place] [address] | + + + | Home Phone | | + + + | Preferred Language | Unknown | + + + | Marital Status | | + + + | Advent Affiliation | 1013 | + + + | Race | Unknown | + + + | Ethnic Group | Unknown | + + + Author + + + | Author | [facility] | | | and Priteshana | + + + | Organization | [facility] | | [...] Team Providers + +------+ + | Care Shade Classifier Name | Role | Phone | + [...] + + | 11/01/ | Office | [facility] [place] | Shay Dietz | Back pain (Primary | | 2012 | Visit | [address]SIATRY [address] | [address] | Dx); BACK PAIN, | | | | [address] | [place], [place] | LUMBAR; | | | | [place], [place] | [address] | OSTEOARTHRITIS, | | | | [address] | | LUMBOSACRAL SPINE; | | | | [phone] | | DISC DISEASE, | | | [...] - 11/01/2012 9:06 AM PST[facility] your scheduled [facility] to [...] our off ice. Please also provide a frontload driver to take you home on the [...] [place] | | | | | | [address] | | | | | | | | +--------+---------+ + + + | 04/03/ | Office | Cardiology | Zuleyka Castillo DO | | | 2019 | Visit | | [address] | | | | | | [place] | | | | | | [address] | | | | | | | [...]
--- OUTSIDE RECORDS SUMMARY | ~2020-03-05 | XMS | Encounter Summary ---
Demographics + + + | Address | [address] | | | [place] [address] | + + + | Home Phone | | + + + | Preferred Language | Unknown | + + + | Marital Status | | + + + | Holiness Affiliation | 1013 | + + + | Race | Unknown | + + + | Ethnic Group | Unknown | + + + Author + + + | Author | [facility] | | | and Priteshana | + + + | Organization | [facility] | | [...] Team Providers + +------+ + | Care Sweep Molder Name | Role | Phone | + +------+ + | Wendi Aiken | PCP | | + +------+ + Encounter Details +--------+ + + + + | Date | Type | Department | Care Team | Description | +--------+ + + + + | 04/07/ | Imaging | [facility] | Provider, | | | 2018 | Exam | MED CTR EXTERNAL | MD [address] | | | | | IMAGING [address] | [address] | | | | | [place] | [place] [address] | | | | | [place] [address] | | | | | | [phone] | | | +--------+ + + + [...] [place] | | | | | | [address] | | | | | | | | +--------+---------+ + + + | 04/03/ | Office | Cardiology | Zuleyka Castillo DO | | | 2019 | Visit | | [address] | | | | | | [place] | | | | | | [address] | | | | | | | [...]
--- OUTSIDE RECORDS SUMMARY | ~2020-03-05 | XMS | Encounter Summary ---
Demographics + + + | Address | [address] | | | [place] [address] | + + + | Home Phone [...] Team Providers + +------+ + | Care Preparer Samples And Repairs Name | Role | Phone | + [...] | +--------+ + + + + | 11/23/ | Telephone | [facility] [place] | Jairo Doshi, | Imaging Only | | 2019 | | NEUROSURGERY [address] | PA-C [address] | | | | | [address] | [address] [place] | | | | | [place], [place] | [place] [address] | | | | | [address] | [phone] | | | | | [phone] | | | +--------+ + + + [...] [place] | | | | | | [address] | | | | | | | | +--------+---------+ + + + | 04/03/ | Office | Cardiology | Zuleyka Castillo DO | | | 2020 | Visit | | [address] | | | | | | [place] | | | | | | [address] | | | | | | | | +--------+---------+ + + + documented as of this encounter Visit Diagnoses Not on filedocumented in this encounter"
--- OUTSIDE RECORDS SUMMARY | ~2020-03-05 | XMS | Encounter Summary ---
Demographics + + + | Address | [address] | | | [place] [address] | + + + | Home Phone [...] Team Providers + +------+ + | Care Grade Teacher Name | Role | Phone | [...] | | | stenosis | B | [address] | | | | | | [place], [place] | Phone: | | | | | | [address] | [phone] | | | | | | Phone: | Fax: | | | | | | [phone] | [phone] | | | | | | Fax: | | | | | | | [phone] | | + +--------+ + + + + Encounter Details +--------+---------+ + + + | Date | Type | Department | Care Team | Description | +--------+---------+ + + + | 08/16/ Office | [facility] | Denys Sibley, | S/P insertion of | | 2018 | Visit | [facility] | DO [address] | spinal cord | | | | [address]Y [address] | [address] [place] | stimulator (Primary | | | | [address] | [address] | Dx); Spinal stenosis | | | | [place], [place] | | of lumbosacral | | | | [address] | | region; Intractable | | | | [phone] | | back pain; Encounter | | [...] anterior chest wall every 72 hours, and [place] 7.5/325 1 p.o. every 6 hours as [...] Date Acid reflux disease Acute renal failure ([facility]) April 2013 Adverse effect of anesthesia hx hallucinations after anesthesia x 3 yrs ago. Anesthesia hallucinated after bladder repair Arthralgia Arthritis Asthma Asthma Back pain Cancer ([facility]) 2004 breast Cataract Cerebrovascular accident (CVA) ([facility]) no per pt Chronic back [...] Screen 08/03/2019 NEGATIVE Final BB BAND 08/03/2019 [id number] Final BB BAND 08/03/2019 Testing performed at [facility];[address] [place] [address];[place] [address] Final Glucose, POC 08/03/2019 77 65 - [...] Final Antibody Screen 07/18/2019 Testing performed at [facility];[address] [place] [address];[place] [address] Final SOURCE: 07/18/2019 NARES(NOSE) Final Result 07/18/2019 [...] to physical therapy, mass age therapy, acupuncture, urgent care physician assistant, along with recommended psychological counseling , either privately, or in group sessions offered by private care individuals, community serv ices, or congregation organizations. Appropriate referrals were made at patient [...] every 72 hours con tinue with the [place] 10/325 1 p.o. every 6 hours as needed breakthrough pain and Robaxin 500 mg every 6 hours as needed muscle spasms Patient understands and is in full agreement with the above plan, Will return to office in 4 weeks, [facility] was consulted and appears appropriate, Urine Toxicology [...] and complications with the passage of time. MCFP use is also associated with depressions, and [...] [place] | | | | | | [address] | | | | | | | | +--------+---------+ + + + | 04/03/ | Office | Cardiology | Zuleyka Castillo DO | | | 2019 | Visit | | [address] | | | | | | [place] | | | | | | [address] | | | | | | | [...]
--- OUTSIDE RECORDS SUMMARY | ~2020-03-05 | XMS | Encounter Summary ---
Demographics + + + | Address | [address] | | | [place] [address] | + + + | Home Phone [...] Team Providers + +------+ + | Care Multiple Drill Operator Name | Role | Phone | + +------+ + | Miquel Calhoun MD | PCP | | + +------+ + Encounter Details +--------+ + + + + | Date | Type | Department | Care Team | Description | +--------+ + + + + | 10/18/ | Hospital | [facility] | Shay Dietz | | | 2012 | Encounter | MED CTR XRAY [address] | [address] | | | | | [place] | [address] [facility] [place], [place] | | | | | [place] [address] | [address] | | | | | [phone] | | | +--------+ + + + [...] [place] | | | | | | [id number] | | | | | | | | +--------+---------+ + + + | 04/03/ | Office | Cardiology | Zuleyka Castillo DO | | | 2019 | Visit | | [address] | | | | | | [place] | | | | | | [id number] | | | | | | | [...] Performed At | + + + | [facility] | [place] | | Department [address] [facility] [place] | [facility] | | [ rep [address]] [ rep [facility] | | st zip] Signed | - IMAGING | | | | | Patient Name: KORI HARMON | | | Physician: OMID : 1945 Age: 68 Sex: F Unit | | | #: [id number] Exam Date: 10/18/13 Location: | | | IMG.INV Report #: [id number] Page: | | | %(RAD)RES..mtdd.print.filter("pg") of %(RAD) | | | RES..mtdd.print.filter("tpg") | | | | | | Accession Number: [id number] | | | LUMBAR MEDIAL BRANCH BLOCKS, [...] Transcribed Date/Time: | | | 10/18/2013 19:14 Fur Grader: | | | <<Signature on File>> | | | Shay Mukherjee | | | MD J Luis10/22/13 0756 <Electronically signed by Shay Mukherjee | | | J Luis SALGADO> Shay Dietz MD 10/18/13 7970 | | | Fur Grader: [employer] Ulgfgdamheigg30/19/13 8980 | | | PROVIDER,UNKNOWN | | + + + + + + + + | Performing | Address | City/State/Zipcode | Phone Number | | Organization | | | | + + + + + | [facility] | [address] | [place] | [phone] | | [facility] | | [address] | | | - IMAGING | | | | + + + + + documented in this encounter Visit Diagnoses Not on filedocumented in this encounter
--- OUTSIDE RECORDS SUMMARY | ~2020-03-05 | XMS | Encounter Summary ---
Demographics + + + | Address | [address] | | | [place] [address] | + + + | Home Phone [...] Team Providers + +------+ + | Care Finger Waver Name | Role | Phone | + +------+ + | Wendi Aiken | PCP | | + +------+ + Encounter Details +--------+ + + + + | Date | Type | Department | Care Team | Description | +--------+ + + + + | 04/07/ | Imaging | [facility] | Provider, | | | 2018 | Exam | MED CTR EXTERNAL | MD [address] | | | | | IMAGING [address] | [address] | | | | | [facility] | [place] [address] | | | | | [place] [address] | | | | | | [phone] | | | +--------+ + + + [...] [place] | | | | | | [address] | | | | | | | | +--------+---------+ + + + | 04/03/ | Office | Cardiology | Zuleyka Castillo DO | | | 2019 | Visit | | [address] | | | | | | [place] | | | | | | [address] | | | | | | | [...]
--- OUTSIDE RECORDS SUMMARY | ~2020-03-05 | XMS | Encounter Summary ---
Demographics + + + | Address | [address] | | | [place] [address] | + + + | Home Phone [...] Required | Rehabilitatio | | Yaneli, | [place] | | | | n | radiculopath | PA-C [address] | [place], | | | | | y Chronic | [address], | [place] [address] | | | | | low back | [address] | Phone: | | | | | pain Facet | [place], [place] | [phone] | | | | | arthritis of | [address] | Fax: | | | | | lumbar | Phone: | [phone] | | | | | region | [phone] | | | | | | Foraminal | Fax: | | | | | | stenosis of | [phone] | | | | | | lumbar [...] + + | 04/17/ | Office | [facility] | Bogdanowicz, | Left lumbar | | 2013 | Visit | PHYSIATRY [address] | [address] | radiculopathy | | | | [address] | [address], [address] | (Primary Dx); | | | | [place] | [place] [address] | Chronic low back | | | | [address] | [phone] | pain; Facet | | | | [phone] | | arthritis of lumbar | | [...] of the procedure you must provide a shuttle bus driver to take you home. For all [...] me to refill this prescription as her [facility] provider will not refill them either. She [...] has no apparent deficits with short or chcf memory. She has appropriate fund of knowledge [...] Therapy prescription has been given to the [facility]. 3. I did discussed neuropathic pain [...] [place] | | | | | | [address] | | | | | | | | +--------+---------+ + + + | 04/03/ | Office | Cardiology | Zuleyka Castillo DO | | | 2019 | Visit | | [address] | | | | | | [place] | | | | | | [address] | | | | | | | [...] 04/18/2014 Transforaminal Epidural Steroid Injection Diagnosis: | RUPERTOE | | Lumbar radiculopathy ICD-9 Code 724.4 Kori Harshal | [facility] | | Joanne presents to the fluoroscopy suite for a [facility] | | fluoroscopically-guided left L5-S1 transforaminal epidural [...] + + | Performing | Address | City/State/[facility] | Phone Number | | Organization | | | | + + + + + | [facility] | [address] | [place] | [phone] | | [facility] | | [address] | | | - IMAGING | | [...]
--- OUTSIDE RECORDS SUMMARY | ~2020-03-05 | XMS | Encounter Summary ---
Demographics + + + | Address | [address] | | | [place] [address] | + + + | Home Phone [...] Team Providers + +------+ + | Care Slinger Sequins Name | Role | Phone | + +------+ + | Miquel Calhoun MD | PCP | | + +------+ + Encounter Details +--------+ + + + + | Date | Type | Department | Care Team | Description | +--------+ + + + + | 05/01/ | Hospital | [facility] | Shay Dietz | | | 2012 | Encounter | MED CTR XRAY [address] | [address] | | | | | [place] | ST [facility] [place] | | | | | [place] [address] | [address] | | | | | [phone] | | | +--------+ + + + [...] 03/17/ | Office | Pain Medicine | BelenDenys mo, | | | 2019 | Visit | | DO [address] | | | | | | [place] | | | | | | [address] | | | | | | | | +--------+---------+ + + + | 04/03/ | Office | Cardiology | Zuleyka Castillo DO | | | 2019 | Visit | | [address] | | | | | | [place] | | | | | | [address] | | | | | | | [...] Performed At | + + + | [facility] | [place] | | Department [address] [place] [address] | [facility] | | [ rep ct [address]] [ rep ct [facility] | | st zip] Signed | - IMAGING | | | | | Patient Name: KORI HARMON | | | Physician: OMID : 1945 Age: 67 Sex: F Unit | | | #: [id number] Exam Date: 05/01/13 Location: | | | [facility] Report #: [id number] Page: | | | %(RAD)RES..mtdd.print.filter("pg") of %(RAD) | | | RES..mtdd.print.filter("tpg") | | | | | | Accession Number: [id number] | | | PROCEDURE NOTE LUMBAR FACET INJECTION, 05/01/2013 | | | CLINICAL HISTORY: ICD-9 CODE 721.3 LUMBAR SPONDYLOSIS. Ms. | | | Kori Harmon presents to the fluoroscopy suite for | [...] Transcribed | | | Date/Time: 05/09/2013 18:53 Natural Resources Technician: | | | <<Signature on File>> | | | Shay Mukherjee | | | MD J Luis05/15/132101 <Electronically signed by Shay Mukherjee | | | J Luis SALGADO> Shay Dietz MD 05/09/13 1813 | | | Natural Resources Technician: Yudelka Klwmchmzwdvfu90/10/13 2743 | | | | | + + + + + + + + | Performing | Address | City/State/Zipcode | Phone Number | | Organization | | | | + + + + + | [facility] | [address] | [place] | [phone] | | [facility] | | [address] | | | - IMAGING | | | | + + + + + documented in this encounter Visit Diagnoses Not on filedocumented in this encounter
--- OUTSIDE RECORDS SUMMARY | ~2020-03-05 | XMS | Clinical Summary ---
Demographics + + + | Address | [address] | | | [place] [address] | + + + | Home Phone | | + + + | Preferred Language | Unknown | + + + | Marital Status | | + + + | Rastafarian Affiliation | 1013 | + + + [...] Team Providers + +------+ + | Care Children'S Program Coordinator Name | Role | Phone | [...] | | 19 | | | | exterminator helper termite current | Responsiveness (May | | | [...] Overview: Added automatically from request for surgery [id number] | + + + + + | Spondylosis without myelopathy or radiculopathy, lumbosacral | 03/20/2019 | | region | | + + + + + | Overview: Added automatically from request for surgery [id number] | + + + + + | Chronic bilateral low back pain without sciatica | 03/20/2019 | + + + + + | Overview: Added automatically from request for surgery [id number] | + + + + + | Intervertebral disc disorders with radiculopathy, lumbosacral | 02/25/2019 | | region | | + + + + + | Overview: Added automatically from request for surgery [id number] | + + + + + | Chronic low back pain with sciatica | 02/25/2019 | + + + + + | Overview: Added automatically from request for surgery [id number] | + + + + + | Lumbar region somatic dysfunction | 02/25/2019 | + + + + + | Overview: Added automatically from request for surgery [id number] | + + + + + | Strain of lumbar region | 02/25/2019 | + + + + + | Overview: Added automatically from request for surgery [id number] | + + + + + | Spinal stenosis of lumbosacral region | 02/25/2019 | + + + + + | Overview: Added automatically from request for surgery [id number] | + + + + + | [...] Overview: Added automatically from request for surgery [id number] | | Problem List Test Automation Architect Utility | + + + + + [...] + +---+ + + | Overview: LOUISE [id number] Decision | + + + +---+ | [...] + + | Brother | | | [place] | | | | (Age | | [...] [place] | | | | | | [address] | | | | | | | | +--------+---------+ + + + | 04/03/ | Office | Cardiology | Zuleyka Castillo DO | | | 2019 | Visit | | [address] | | | | | | [place] | | | | | | [address] | | | | | | | [...] | | 03/04/ | [id number] | | [id number]: Qty: 1 | ogical | Spine | MEDICAL - | | 2020 | S | | on 08/03/2019 by Cuong, | | Lumbar | STJU | | | /[id number] | | MD Maykel at [facility] | Stimul | | | | | 444 | | [facility] | ator | | | | | [...] | | 11/23/ | 3186AN | | [id number]: Qty: 1 on | | | MEDICAL - | | 2020 | S | | 03/28/2019 by Sonja, | | | STJU | | | /[id number] | | DO Alfredo | | | | | | 330 / | + +--------+--------+ +--------+--------+--------+ | Proclaim 5 EliteImplanted: | | N/A: | ST CASEY | | 01/15/ | 3660 | | Qty: 1 on 08/03/2019 by Cuong, | | Spine | MEDICAL - | | 2020 | /[id number] | | MD Maykel at [facility] | | Lumbar | STJU | | | 6.1 | | [facility] | | | | | | /NA [...] MD | | | | | | (8805) on 03/04/2020 | | | | | [...] +---------+--------+ | INDIVIDUAL ASSURANCE | INDIVI | [id number] | | | | Indemn | | [...] +--------+ +---------+--------+ | MEDICARE | MEDICA | [id number] | | [phone] | | Medica | | | RE | | 991-Pr | 5 | | re | | | PART A | | esent | | | | | | AND B | | | | | | + +--------+ +--------+ +---------+--------+ | MEDICARE | MEDICA | [id number] | | [phone] | | Medica | | | RE | | 991-Pr | 5 | | re | | | PART A | | esent | | | | | | AND B | | | | | | + +--------+ +--------+ +---------+--------+ | MEDICARE | MEDICA | [id number] | | [phone] | | Medica | | | RE | | 991-Pr | 5 | | re | | | PART A | | esent | | | | | | AND B | | | | | | + +--------+ +--------+ +---------+--------+ | MEDICARE | MEDICA | [id number] | | [phone] | | Medica | | | RE | | 991-Pr | 5 | | re | | | PART A | | esent | | | | | | AND B | | | | | | + +--------+ +--------+ +---------+--------+ | INDIVIDUAL ASSURANCE | INDIVI | [id number] | | | | Indemn | | [...] +---------+--------+ | INDIVIDUAL ASSURANCE | INDIVI | [id number] | | | | Indemn | | [...] +---------+--------+ | INDIVIDUAL ASSURANCE | INDIVI | [id number] | | | | Indemn | | [...] | 1945 | [phone] | [place] [address] | | | jose | | | 8 (Home) | | + +--------+ +--------+ + + | McintoshSkinnyXiong | Person | Self | [birth year] | [address] | | mandeep Harshal | al/Fam | | 1945 | [phone] | [place] [address] | | | jose | | | 8 (Home) | | + +--------+ +--------+ + + | McintoshSkinnyXiong | Person | Self | [birth year] | [address] | | mandeep Harshal | al/Fam | | 1945 | [phone] | [place] [address] | | | jose | | | 8 (Home) | | + +--------+ +--------+ + + | McintoshSkinnyXiong | Person | Self | [birth year] | [address] | | mandeep Harshal | al/Fam | | 1945 | [phone] | [place] [address] | | | jose | | | 8 (Home) | | + +--------+ +--------+ + + Advance Directives + + + + + | Type | Date Recorded | Patient | Explanation | | | | Manager Of Information | | + + + + + | Power of | | | | | Haircutter | | | | + + + [...]
--- OUTSIDE RECORDS SUMMARY | ~2020-03-05 | XMS | Encounter Summary ---
Demographics + + + | Address | [address] | | | [place] [address] | + + + | Home Phone [...] Providers + +------+ + | Care Security Strategist Name | Role | Phone | + +------+ + | Concepción Gallardo NP | PCP | | + +------+ + Encounter Details +--------+ + + + + | Date | Type | Department | Care Team | Description | +--------+ + + + + | 07/17/ | Hospital | [facility] | Paty, | Intractable low back | | 2014 - | Encounter | [facility] | MD [address] | pain | | | | CLINICAL DECISION | [address] | | | 07/18/ | | [address] | [place] [address] | | | 2013 | | [place], [place] | [phone] | | | | | [address] | | | | | | [phone] | | | +--------+ + + + [...] documented as of this encounter Discharge Summaries Bob Valverde DO - 07/18/2014 11:31 AM PDT Discharge Summaries by Bob Valverde DO at 07/18/14 1131 Author: Bob Valverde DO Service: Hospitalist Author Type: Physician Filed: 07/18/14 1138 Date of Service: 07/18/14 1131 Status: Signed Paper Winder: Bob Valverde DO (Physician) [facility] Service: Hospitalist Discharge Summary Date of Admission: 07/17/2014 Date of Discharge: 07/18/2014 Discharge Provider: Bob Valverde DO Treatment Team: Admitting Provider: Venkat Newman MD Discharge Diagnoses: Principal Problem: Intractable back pain Resolved Problems: * No resolved hospital problems. * Presented with ongoing intractable LBP, chronic in nature but worsening. MRI L-spine was do ne in ED (report included below) and ED physician discussed with Dr Anthony, who recommended no surgical intervention and, if anything, just observation for pain control, thus she was a dmitted to hospitalists in observation. She was given IV Valium, IV Dilaudid, IV Fentanyl, a s well as oral [place] 10's, Zanaflex, Klonopin, and PT was ordered. Now patient wants to go h ome without the PT evaluation. She will continue management of her chronic condition with he r outpatient providers. DISCHARGE EXAM Vital Signs: BP 112/54 | Pulse 74 | Temp(Src) 97.8 F (36.6 C) (Axillary) | Resp 16 | Ht 1.626 m (5' 4.02") | Wt 65.772 kg (145 lb) | BMI 24.88 kg/m2 | SpO2 99% | ? No Physical Exam Constitutional: She is oriented to person, place, and time. She appears well-developed and well-nourished. No distress. HENT: Head: Normocephalic and atraumatic. Mouth/Throat: Oropharynx is clear and moist. Eyes: Conjunctivae are normal. No scleral icterus. Neck: Normal range of motion. Neck supple. No JVD present. Cardiovascular: Normal rate, regular rhythm, normal heart sounds and intact distal pulses. No murmur heard. Pulmonary/Chest: Effort normal and breath sounds normal. No respiratory distress. Abdominal: Soft. Bowel sounds are normal. She exhibits no distension. There is no tendernes s. Musculoskeletal: She exhibits no edema or tenderness. Neurological: She is alert and oriented to person, place, and time. She has normal reflexes . Skin: Skin is warm and dry. No rash noted. She is not diaphoretic. No erythema. No pallor. Psychiatric: She has a normal mood and affect. Her behavior is normal. Judgment and thought content normal. Vitals reviewed. MRI LUMBAR SPINE WO CONTRAST 07/17/2014 9:56 PM INDICATION: Back pain COMPARISON: Plain radiographs, 11/18/13 TECHNIQUE: Imaging was performed on a 1.5 Aretha MRI system. Multiplanar sequences according to a [facility] protocol were acquired without contrast. FINDINGS: There is a mild levoscoliotic curvature present. There are 5 nonrib-bearing lumba r vertebral type bodies. Vertebral body heights are maintained. There is mild discogenic ramin ma along the inferior endplates of L3 and L5-S1 posteriorly. There is moderate disc space na rrowing at L3-4 and L5-S1. Bone marrow edema is also demonstrated along the left pedicle of L5. There is no epidural fluid. Findings by level: L1-2: No spinal canal or neural foraminal stenosis. L2-3: There is an asymmetric disc which results in mild right subarticular recess narrowing . No significant spinal canal or neural foraminal stenosis is present. L3-4: There is a moderate circumferential disc with moderate bilateral facet hypertrophy. T here is moderate bilateral subarticular recess narrowing. The bilateral transiting L4 nerve root comes into close proximity with disc material. The spinal canal is mildly stenotic. The re is mild bilateral neural foraminal stenosis without definite nerve root impingement. L4-5: There is a moderate circumferential disc with moderate facet arthropathy and ligament um flavum thickening. The bilateral transiting L5 nerve root comes into close proximity with disc material but does not appear to be displaced. There is mild bilateral neural foraminal stenosis without nerve root impingement. L5-S1: There is a prominent lateral osteophyte that appears to result in subtle displacemen t of the exiting left L5 nerve root beyond the neural foramen. There appears to be severe le ft and moderate right subarticular recess narrowing and potential impingement of the left S1 nerve root as well. There is severe left and mild right facet hypertrophy. The aorta and IVC are normal. The kidneys have a normal reniform contour with no hydronephr osis. There is mild fatty atrophy of the lower paraspinous musculature. IMPRESSION: 1. Multilevel degenerative disc disease of the lumbar spine with mild discogenic edema at L3 and L5-S1. 2. There is potential impingement of the left L5 and S1 nerve root due to degenerative nidhi nges as above. 3. Reactive stress edema along the left pedicle of L5. Disposition: Home Condition: Stable Code Status: DNR/DNI Follow up: Miquel Calhoun MD Medication List CHANGE how you take these medications ropinirole 2 MG tablet QTY: 90 tablet Refills: 11 Commonly known as: REQUIP Take 1 tablet by mouth 3 (three) times daily. What changed: how much to take CONTINUE taking these medications albuterol 1.25 MG/3ML nebulizer solution Refills: 0 Commonly known as: ACCUNEB aspirin 81 MG EC tablet QTY: 30 tablet Refills: 11 Take 1 tablet by mouth daily with breakfast. clonazePAM 1 MG tablet Refills: 0 Commonly known as: KlonoPIN fluticasone-salmeterol 250-50 MCG/DOSE QTY: 60 each Refills: 0 Commonly known as: ADVAIR Inhale 1 puff into the lungs 2 (two) times daily. HYDROcodone-acetaminophen 10-325 MG per tablet Refills: 0 Commonly known as: NORCO ibuprofen 800 MG tablet Refills: 0 Commonly known as: MOTRIN levothyroxine 100 MCG tablet QTY: 30 tablet Refills: 11 Commonly known as: SYNTHROID Take 1 tablet by mouth every morning before breakfast. loratadine 10 MG tablet Refills: 0 Commonly known as: CLARITIN mirtazapine 15 MG tablet Refills: 0 Commonly known as: REMERON multivitamin & minerals w iron/FA 27-0.8 MG Tabs tablet Refills: 0 Take 1 tablet by mouth daily. ranitidine 150 MG tablet QTY: 30 tablet Refills: 11 Commonly known as: ZANTAC Take 1 tablet by mouth daily. tizanidine 4 MG capsule Refills: 0 Commonly known as: ZANAFLEX STOP taking these medications calcium-vitamin D 600-400 MG-UNIT per tablet Commonly known as: CALCITRATE Discharge took ~20 minutes, to include final examination, discussion of admission, and prep aration of prescriptions, instructions for on-going care, follow-up and documentation of dis charge summary. Bob Valverde DO 07/18/2014 11:38 AM documented in this enc ounter Medications at Time of Discharge + + [...] Progress Notes Conversion Transaction, Provider Unknown - 07/18/2014 1:10 PM PDTFormatting of this note m ight be different from the original. Nurse Progress Note by Nati Mena RN at 07/18/14 1310 Author: Nati Mena RN Service: (none) Author Type: Registered Nurse Filed: 07/18/14 1311 Date of Service: 07/18/14 1310 Status: Signed Paper Winder: Nati Mena RN (Registered Nurse) Pt discharged home, escorted to exit via wheelchair, all belongings sent with pt, pt's frie nd at pt's side. IV discontinued with cannula intact. Pt given discharge instructions and ed ucation, verbalizes understanding and denies any questions or concerns. NATI MENA RN onver hiren Transaction, Provider Unknown - 07/18/2014 12:45 PM PDT Progress Notes by Nati Mena RN at 07/18/14 5266 Author: Nati Mena RN Service: (none) Author Type: Registered Nurse Filed: 07/18/14 4056 Date of Service: 07/18/14 1245 Status: Signed Paper Winder: Nati Mena RN (Registered Nurse) Pt to be discharged home. Pt requests to use bathroom, able to stand up independently and w alk to walker with no difficulty noted. Pt uses walker to bathroom and dresses independently then assists herself back to bed, continues to ambulate with no difficulty noted, able to s tand on both legs. Pt shows no s/s of acute pain or distress. NATI MENA RN onver hiren Transaction, Provider Unknown - 07/18/2014 12:45 PM PDT Therapy Progress Note by Sj Bender PT at 07/18/14 1245 Author: Sj Bender PT Service: (none) Author Type: Physical Therapist Filed: 07/18/14 1320 Date of Service: 07/18/14 1245 Status: Addendum Paper Winder: Sj Bender PT (Physical Therapist) Related Notes: Original Note by Sj Bender PT (Physical Therapist) filed at 1317 07/18/14 1245 PT Last Visit PT Received On 07/18/14 Reason for Treatment Other (comment) (back pain) Requires PT Follow Up No PT Eval/Reassessment Date 07/18/14 Assistance Required Independent Precautions Other Precautions educated is spine precautions to reduce pain/irritation. Educated in fal l risk prevention/use of FWW. Other Comments Comments Pt. seen by PT. Per notes, d/c summary has been written. Pt. has PMH of chronic LBP/depression. Pt. reports her pain level is still high 06/09 however she states "I will ju st have to deal with it". Pt. appears very downtrodden/depressed. Pt. is able to stand and ambualte household distance w/ slow antalgic gait using FWW. Pt. appears safe/steady with use of walker. Pt. educated in some positional relief self treatments as well as some gentl e supine stretching techniques. Pt. stated understanding to this. Pt. would benefit from O P PT. Pt. is to be d/c'ing later today. Cognition Overall Cognitive Status WFL Orientation Level Oriented Bed Mobility Rolling Modified independent Supine to Sit Modified independent Scooting Modified independent Transfers Sit to/from Stand Modified independent Bed to/from Chair Modified independent Mobility Ambulation Assistance Modified independent;Supervision Maximal Ambulation Distance (feet) 25 Total Ambulation Distance (feet) 50 Distance limited by? Patient's ability Pattern Decreased lona;Right swing foot doesn't pass stance foot;Left swing foot doesn't pass stance foot;Forward flexed;Antalgic Assistive Device Walker front wheeled Balance Balance (steady/no LOB, kyphotic posture w/ hold of walker) Activity Tolerance Activity Tolerance Patient limited by pain Nurse Made Aware yes Plan Treatment/Interventions Discharge skilled PT services PT Frequency Evaluation only Recommendation Recommendations Return to prior living situation;Outpatient PT (Would specifically benefit from aquatic PT initially) Equipment Recommended (has FWW) 07/18/14 1245 PT Last Visit PT Received On 07/18/14 Reason for Treatment Other (comment) (back pain) Requires PT Follow Up No PT Eval/Reassessment Date 07/18/14 Assistance Required Independent Precautions Other Precautions educated is spine precautions to reduce pain/irritation. Educated in fal l risk prevention/use of FWW. Plan Treatment/Interventions Discharge skilled PT services PT Frequency Evaluation only Home Environment Type of Home Home one story Home Exterior Layout Entry steps none Home Interior Layout Lives on main level with bedroom/bathroom Bathroom Accessibility Accessible to equipment needs Home Equipment Walker front wheeled Recommendation Recommendations Return to prior living situation;Outpatient PT (Would specifically benefit from aquatic PT initially) Equipment Recommended (has FWW) Prior Function Level of [place] Modified independent with functional mobility;Modified independent wi th ADLs;Modified independent with IADLs Lives With Alone Receives Help From Friend(s) ADL Assistance Independent Home ADL's Independent Comments Friend is to transport home, receives help from friends as needed. RUE Assessment RUE Assessment WFL LUE Assessment LUE Assessment WFL RLE Assessment RLE Assessment WFL (bilat. LE mvmnt/ROM limited by chronic LBP) LLE Assessment LLE Assessment WFL Cognition Overall Cognitive Status WFL Orientation Level Oriented Sensation Light Touch No apparent deficits Assessment of Patient Status Assessment of Patient Status Pain Prognosis Should progress with skilled therapy intervention Functional Limitation - G Codes Mobility: Walking & Moving Around: $[id number] Current Status : CK - At least 40% but less than 60% impaired, limited or restricted $[id number] Projected Goal Status : CK - At least 40% but less than 60% impaired, limited or res tricted $[id number] D/C Status : CK - At least 40% but less than 60% impaired, limited or restricted Rationale: Pt. 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 After assisting pt to sitti ng position, gait belt applied and pt stood up. Pt states she became dizzy and needed to sit back down. Pt states she always has a hard time walking in the mornings. After approx. 30 s econds, pt again stood up by self and began to ambulate to restroom. Note, pt stopped severa l times, leaned back, which required me supporting her gait or else i suspect pt would fall backwards. Pt required reminders to open her eyes and look at where she is going. Pt slowly made her way to the restroom, voided and ambulated VERY WELL back to the bed....... Pt the n wanted her light left on so she could respond to a text message on her cell phone she just received. Pt asked for pain meds. Only option I am willing to give pt at this time is Motri n r/t hypotension and decreased alertness when she woke up. Pt given AM med and motrin and t ook PO very well. onver hiren Transaction, Provider Unknown - 07/18/2014 4:10 AM PDT Nurse Progress Note by Dion Goldsmith RN at 07/18/14 0410 Author: Dion Goldsmith RN Service: (none) Author Type: Registered Nurse Filed: 07/18/14 0436 Date of Service: 07/18/14409 Status: Signed Paper Winder: Dion Goldsmith RN (Registered Nurse) Pt's b/p slightly low. 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 Pt sleepin g now. Plan to recheck B/P in an hour. onver hiren [place], Provider Unknown - 07/18/2014 3:29 AM PDT Progress Notes by Sofi Sol RPH at 07/18/14328 Author: Sofi Sol RPH Service: (none) Author Type: Pharmacist Filed: 07/18/14328 Date of Service: 07/18/14328 Status: Signed Paper Winder: Sofi Sol RPH (Pharmacist) Clinical Pharmacy Note: Renal Monitoring Kori Castañeda 69 y.o. female Pharmacy dosing for renal function per Dr. Montgomery. Currently there are no labs. Pharmacy will adjust medications, if necessary, in AM when lab s are reported per P & T committee. Sofi Sol PharmJewel 07/18/2014 3:29 AM docume nted in this encounter Plan of Treatment +--------+---------+ + + + | Date | Type | Specialty | Care Team | Description | +--------+---------+ + + + | 03/17/ | Office | Pain Medicine | Denys Sibley, | | | 2019 | Visit | | DO [address] | | | | | | [place] | | | | | | [address] | | | | | | | | +--------+---------+ + + + | 04/03/ | Office | Cardiology | Zuleyka Castillo DO | | | 2019 | Visit | | [address] | | | | | | [place] | | | | | | [address] | | | | | | | | +--------+---------+ + + + documented as of this encounter Procedures + +--------+ + + + | Procedure Name | Priori | Date/Time | Associated Diagnosis | Comments | | | ty | | | | + +--------+ + + + | POC GLUCOSE | Routin | 07/18/2014 | | Results for this | | | e | 11:46 AM | | procedure are in the | | | | PDT | | results section. | + +--------+ + + + | POC GLUCOSE | Routin | 07/18/2014 | | Results for this | | | e | 5:33 AM | | procedure are in the | | | | PDT | | results section. | + +--------+ + + + | EXTERNAL LAB: CBC | Routin | 07/18/2014 | | Results for this | | | e | 4:54 AM | | procedure are in the | | | | PDT | | results section. | + +--------+ + + + | TSH | Routin | 07/18/2014 | | Results for this | | | e | 4:54 AM | | procedure are in the | | | | PDT | | results section. | + +--------+ + + + | PHOSPHORUS | Routin | 07/18/2014 | | Results for this | | | e | 4:54 AM | | procedure are in the | | | | PDT | | results section. | + +--------+ + + + | MAGNESIUM | Routin | 07/18/2014 | | Results for this | | | e | 4:54 AM | | procedure are in the | | | | PDT | | results section. | + +--------+ + + + | HEMOGLOBIN A1C | Routin | 07/18/2014 | | Results for this | | | e | 4:54 AM | | procedure are in the | | | | PDT | | results section. | + +--------+ + + + | BILIRUBIN, DIRECT | Routin | 07/18/2014 | | Results for this | | | e | 4:54 AM | | procedure are in the | | | | PDT | | results section. | + +--------+ + + + | COMPREHENSIVE | Routin | 07/18/2014 | | Results for this | | METABOLIC PANEL | e | 4:54 AM | | procedure are in the | | | | PDT | | results section. | + +--------+ + + + | POC GLUCOSE | Routin | 07/18/2014 | | Results for this | | | e | 12:51 AM | | procedure are in the | | | | PDT | | results section. | + +--------+ + + + | MRI LUMBAR SPINE WO | Routin | 07/17/2014 | | Results for this | | CONTRAST | e | 9:56 PM | | procedure are in the | | | | PDT | | results section. | + +--------+ + + + | MRI THORACIC SPINE | Routin | 07/17/2014 | | Results for this | | WO CONTRAST | e | 9:47 PM | | procedure are in the | | | | PDT | | results section. | + +--------+ + + + documented in this encounter Results POC Glucose (07/18/2014 11:46 AM PDT) + + + + + [...] | LAB | | | | [facility];[place], [place] | | | | | | [address] | | | | + + + + + + + + | Specimen | + + | | + + + +---------+ + + | Performing | Address | City/State/Zipcode | Phone Number | | Organization | | | | + +---------+ + + | EXTERNAL LAB | | | | + +---------+ + + POC Glucose (07/18/2014 5:33 AM PDT) + + + + + + | Component | Value | Ref Range | Performed | Pathologist | | | | | At | Signature | + + + + + + | Glucose, | 87Comment: Testing | 65 - 99 mg/dL | EXTERNAL | | | Fingerstick | performed at [facility];[address] | | LAB | | | | [address];[place] | | | | | | [address] | | | | + + + + + + + + | Specimen | + + | | + + + +---------+ + + | Performing | Address | City/State/Zipcode | Phone Number | | Organization | | | | + +---------+ + + | EXTERNAL LAB | | | | + +---------+ + + External Lab: CBC (07/18/2014 4:54 AM PDT) + + + + + + | Component | Value | Ref Range | Performed | Pathologist | | | | | At | Signature | + + + + + + | WBC | 5.0Comment: Testing | 3.8 - 11.0 K/uL | EXTERNAL | | | | performed at [facility], [address] | | LAB | | | | [address], | | | | | | [place] [address] | | | | + + + + + + | Red Blood | 4.16Comment: Testing | 3.70 - 5.10 | EXTERNAL | | | Cells | performed at [facility], [address] | M/uL | LAB | | | Counted | [address], | | | | | | [place] [address] | | | | + + + + + + | Hemoglobin | 11.6Comment: Testing | 11.3 - 15.5 | EXTERNAL | | | | performed at [facility], [address] | g/dL | LAB | | | | [address], | | | | | | [place] [address] | | | | + + + + + + | Hematocrit, | 36.4Comment: Testing | 34.0 - 46.0 % | EXTERNAL | | | POC | performed at [facility], [address] | | LAB | | | | [address], | | | | | | [place] [address] | | | | + + + + + + | MCV | 87.5Comment: Testing | 80.0 - 100.0 fl | EXTERNAL | | | | performed at [facility], [address] | | LAB | | | | [address], | | | | | | [place] [address] | | | | + + + + + + | MCH | 27.9Comment: Testing | 27.0 - 34.0 pg | EXTERNAL | | | | performed at [facility], [address] | | LAB | | | | [address], | | | | | | [place] [address] | | | | + + + + + + | MCHC | 31.9 (L)Comment: Testing | 32.0 - 35.5 | EXTERNAL | | | | performed at [facility], [address] | g/dL | LAB | | | | [address], | | | | | | [place] [address] | | | | + + + + + + | RDW-CV | 43.8Comment: Testing | 37 - 53 fl | EXTERNAL | | | | performed at [facility], [address] | | LAB | | | | [address], | | | | | | [place] [address] | | | | + + + + + + | Platelet | 244Comment: Testing | 150 - 400 K/uL | EXTERNAL | | | Count | performed at [facility], [address] | | LAB | | | Plasma | [address], | | | | | | [place] [address] | | | | + + + + + + | MPV | 8.3Comment: Testing | fl | EXTERNAL | | | | performed at [facility], [address] | | LAB | | | | [address], | | | | | | [place] [address] | | | | + + + + + + | Differentia | AUTOMATEDComment: | | EXTERNAL | | | l Type | Testing performed at | | LAB | | | | [facility], [address] | | | | | | [place] | | | | | | [address] | | | | + + + + + + | % Segmented | 40.1Comment: Testing | % | EXTERNAL | | | | performed at [facility], [address] | | LAB | | | Neutrophils | [address], | | | | | | [place] [address] | | | | + + + + + + | % | 48.1Comment: Testing | % | EXTERNAL | | | Lymphocytes | performed at [facility], [address] | | LAB | | | | [address], | | | | | | [place] [address] | | | | + + + + + + | % Monocytes | 9.5Comment: Testing | % | EXTERNAL | | | | performed at [facility], [address] | | LAB | | | [address], | | | | | | [place] [address] | | | | + + + + + + | % | 1.9Comment: Testing | % | EXTERNAL | | | Eosinophils | performed at [facility], [address] | | LAB | | | | [address], | | | | | | [place] [address] | | | | + + + + + + | % Basophils | 0.4Comment: Testing | % | EXTERNAL | | | | performed at [facility], [address] | | LAB | | | | [address], | | | | | | [place] [address] | | | | + + + + + + | Absolute | 2.0Comment: Testing | 1.9 - 7.4 K/uL | EXTERNAL | | | Segmented | performed at [facility], [address] | | LAB | | | Neutrophils | [address], | | | | | | [place] [address] | | | | + + + + + + | Absolute | 2.4Comment: Testing | 1.0 - 3.9 K/uL | EXTERNAL | | | Lymphocytes | performed at [facility], [address] | | LAB | | | | [address], | | | | | | [place] [address] | | | | + + + + + + | Absolute | 0.5Comment: Testing | 0 - 0.8 K/uL | EXTERNAL | | | Monocytes | performed at [facility], [address] | | LAB | | | | [address], | | | | | | [place] [address] | | | | + + + + + + | Absolute | 0.1Comment: Testing | 0 - 0.5 K/uL | EXTERNAL | | | Eosinophils | performed at [facility], [address] | | LAB | | | | [address], | | | | | | [place] [address] | | | | + + + + + + | Absolute | 0.0Comment: Testing | 0 - 0.1 K/uL | EXTERNAL | | | Basophils | performed at [facility], [address] | | LAB | | | | [address], | | | | | | [place] [address] | | | | + + + + + + + + | Specimen | + + | Blood specimen | | (specimen) | + + + +---------+ + + | Performing | Address | City/State/Zipcode | Phone Number | | Organization | | | | + +---------+ + + | EXTERNAL LAB | | | | + +---------+ + + TSH (07/18/2014 4:54 AM PDT) + + + + + + | Component | Value | Ref Range | Performed | Pathologist | | | | | At | Signature | + + + + + + | TSH | 2.51Comment: Testing | 0.40 - 5.00 | EXTERNAL | | | | performed at [facility], [address] | uIU/mL | LAB | | | | [address], | | | | | | [place] [address] | | | | + + + + + + + + | Specimen | + + | Blood specimen | | (specimen) | + + + +---------+ + + | Performing | Address | City/State/Zipcode | Phone Number | | Organization | | | | + +---------+ + + | EXTERNAL LAB | | | | + +---------+ + + Phosphorus (07/18/2014 4:54 AM PDT) + + + + + + | Component | Value | Ref Range | Performed | Pathologist | | | | | At | Signature | + + + + + + | PHOSPHORUS | 5.5 (H)Comment: Testing | 2.3 - 4.8 mg/dL | EXTERNAL | | | | performed at [facility], [address] | | LAB | | | | [address], | | | | | | [place] [address] | | | | + + + + + + + + | Specimen | + + | Blood specimen | | (specimen) | + + + +---------+ + + | Performing | Address | City/State/Zipcode | Phone Number | | Organization | | | | + +---------+ + + | EXTERNAL LAB | | | | + +---------+ + + Magnesium (07/18/2014 4:54 AM PDT) + + + + + + | Component | Value | Ref Range | Performed | Pathologist | | | | | At | Signature | + + + + + + | Magnesium | 2.1Comment: Testing | 1.7 - 2.4 mg/dL | EXTERNAL | | | | performed at [facility], [address] | | LAB | | | | [address], | | | | | | [place] [address] | | | | + + + + + + + + | Specimen | + + | Blood specimen | | (specimen) | + + + +---------+ + + | Performing | Address | City/State/Zipcode | Phone Number | | Organization | | | | + +---------+ + + | EXTERNAL LAB | | | | + +---------+ + + Hemoglobin A1C (07/18/2014 4:54 AM PDT) + + + + + + | Component | Value | Ref Range | Performed | Pathologist | | | | | At | Signature | + + + + + + | Hemoglobin | 5.2Comment: The [facility] | 4.0 - 6.0 % | EXTERNAL | | | A1c | Diabetes Association | | LAB | | | | considers a hemoglobin | | | | | | A1c result of <7.0% to | | | | | | be the goal of diabetic | | | | | | therapy. When results | | | | | | are consistently >8.0%, | | | | | | the ADA suggests | | | | | | reevaluation of the | | | | | | treatment regimen. The | | | | | | testing method used is | | | | | | certified traceable to | | | | | | the Diabetes Control and | | | | | | Complications Trial | | | | | | reference method.Testing | | | | | | performed at [facility], [address] | | | [address], | | | | | | [place] [address] | | | | + + + + + + | Glycohemogl | 103Comment: The ADA | mg/dL | EXTERNAL | | | obin | considers an eAG result | | LAB | | | (GHb),Total | of LT 154 mg/dL to be | | | | | | the goal of diabetic | | | | | | therapy. Estimated | | | | | | Average Glucose | | | | | | calculated from | | | | | | hemoglobin A1c by use of | | | | | | the ADA recommended | | | | | | formula.Testing | | | | | | performed at [facility], [address] | | | | | | [facility], | | | | | | [place] [address] | | | | + + + + + + + + | Specimen | + + | Blood specimen | | (specimen) | + + + +---------+ + + | Performing | Address | City/State/Zipcode | Phone Number | | Organization | | | | + +---------+ + + | EXTERNAL LAB | | | | + +---------+ + + Bilirubin, Direct (07/18/2014 4:54 AM PDT) + + + + + + | Component | Value | Ref Range | Performed | Pathologist | | | | | At | Signature | + + + + + + | Bilirubin | 0.1Comment: Testing | 0.0 - 0.3 mg/dL | EXTERNAL | | | Direct | performed at [facility], [address] | | LAB | | | | [address], | | | | | | [place] [address] | | | | + + + + + + + + | Specimen | + + | | + + + +---------+ + + | Performing | Address | City/State/Zipcode | Phone Number | | Organization | | | | + +---------+ + + | EXTERNAL LAB | | | | + +---------+ + + Comprehensive Metabolic Panel (07/18/2014 4:54 AM PDT) + + + + + + | Component | Value | Ref Range | Performed | Pathologist | | | | | At | Signature | + + + + + + | Na | 138Comment: Testing | 135 - 143 | EXTERNAL | | | | performed at [facility], [address] | mmol/L | LAB | | | | [address], | | | | | | [place] [address] | | | | + + + + + + | K | 4.0Comment: Testing | 3.5 - 4.9 | EXTERNAL | | | | performed at [facility], [address] | mmol/L | LAB | | | | [address], | | | | | | [place] [address] | | | | + + + + + + | Cl | 106Comment: Testing | 99 - 109 mmol/L | EXTERNAL | | | | performed at [facility], [address] | | LAB | | | | [address], | | | | | | [place] [address] | | | | + + + + + + | CO2 | 28Comment: Testing | 23 - 32 mmol/L | EXTERNAL | | | | performed at [facility], [address] | | LAB | | | | [address], | | | | | | [place] [address] | | | | + + + + + + | Anion Gap | 8Comment: Testing | 5 - 20 mmol/L | EXTERNAL | | | | performed at [facility], [address] | | LAB | | | | [address], | | | | | | [place], [place] [address] | | | | + + + + + + | Glucose, | 82Comment: Testing | 65 - 99 mg/dL | EXTERNAL | | | Fasting | performed at [facility], [address] | | LAB | | | | [address], | | | | | | [place], [place] [address] | | | | + + + + + + | BUN | 18Comment: Testing | 8 - 25 mg/dL | EXTERNAL | | | | performed at [facility], [address] | | LAB | | | | [address], | | | | | | [place] [address] | | | | + + + + + + | Creatinine | 0.61Comment: Testing | 0.50 - 1.00 | EXTERNAL | | | | performed at [facility], [address] | mg/dL | LAB | | | | [address], | | | | | | [place] [address] | | | | + + + + + + | BUN/Creatin | 30Comment: Testing | | EXTERNAL | | | ine Ratio | performed at [facility], [address] | | LAB | | | | [address], | | | | | | [place] [address] | | | | + + + + + + | Calcium | 8.7Comment: Testing | 8.5 - 10.2 | EXTERNAL | | | | performed at [facility], [address] | mg/dL | LAB | | | | [address], | | | | | | [place] [address] | | | | + + + + + + | Protein, | 5.9 (L)Comment: Testing | 6.3 - 8.2 g/dL | EXTERNAL | | | Total | performed at [facility], [address] | | LAB | | | [address], | | | | | | [place] [address] | | | | + + + + + + | Albumin | 3.7Comment: Testing | 3.3 - 4.8 g/dL | EXTERNAL | | | | performed at [facility], [address] | | LAB | | | | [address], | | | | | | [place] [address] | | | | + + + + + + | Globulin | 2.2Comment: Testing | 1.3 - 4.9 g/dL | EXTERNAL | | | | performed at [facility], [address] | | LAB | | | | [address], | | | | | | [place] [address] | | | | + + + + + + | A/G Ratio | 1.7Comment: Testing | 1.0 - 2.4 | EXTERNAL | | | | performed at [facility], [address] | | LAB | | | | [address], | | | | | | [place] [address] | | | | + + + + + + | Bilirubin | 0.3Comment: Testing | 0.1 - 1.5 mg/dL | EXTERNAL | | | Total | performed at [facility], [address] | | LAB | | | | [address], | | | | | | [place] [address] | | | | + + + + + + | ALP, | 86Comment: Testing | 35 - 115 U/L | EXTERNAL | | | External | performed at [facility], [address] | | LAB | | | | [address], | | | | | | [place] [address] | | | | + + + + + + | AST | 162 (H)Comment: Testing | 10 - 45 U/L | EXTERNAL | | | | performed at [facility], [address] | | LAB | | | | [address], | | | | | | [place] [address] | | | | + + + + + + | ALT | 112 (H)Comment: Testing | 10 - 65 U/L | EXTERNAL | | | | performed at [facility], [address] | | LAB | | | | [address], | | | | | | [place] [address] | | | | + + + [...] | | | | | | at [facility], [address] | | | | | | [address], | | | | | | [place] [address] | | | | + + + + + + + + | Specimen | + + | Blood specimen | | (specimen) | + + + +---------+ + + | Performing | Address | City/State/Zipcode | Phone Number | | Organization | | | | + +---------+ + + | EXTERNAL LAB | | | | + +---------+ + + POC Glucose (07/18/2014 12:51 AM PDT) + + + + + + | Component | Value | Ref Range | Performed | Pathologist | | | | | At | Signature | + + + + + + | Glucose, | 146 (H)Comment: Testing | 65 - 99 mg/dL | EXTERNAL | | | Fingerstick | performed at [facility];[address] | | LAB | | | | [address];[place] | | | | | | [address] | | | | + + + + + + + + | Specimen | + + | | + + + +---------+ + + | Performing | Address | City/State/Zipcode | Phone Number | | Organization | | | | + +---------+ + + | EXTERNAL LAB | | | | + +---------+ + + MRI Lumbar Spine wo Contrast (07/17/2014 9:56 PM PDT) + + | Specimen | + + | | + + + + + | Impressions | Performed At | + + + | 1. Multilevel degenerative disc disease of the lumbar spine with | | | mild discogenic edema at L3 and L5-S1. 2. There is potential | | | impingement of the left L5 and S1 nerve root due to degenerative | | | changes as above. 3. Reactive stress edema along the left pedicle | | | of L5. | | | 10:16 PM | | + + + + + + | Narrative | Performed At | + + + | [facility] 1945 MRI LUMBAR SPINE WO CONTRAST | | | 07/17/2014 9:56 PM INDICATION: Back pain COMPARISON: Plain | | | radiographs, 11/18/13 TECHNIQUE: Imaging was performed on a 1.5 | | | Aretha MRI system. Multiplanar sequences according to a standard | | | department protocol were acquired without contrast. FINDINGS: | | | There is a mild levoscoliotic curvature present. There are 5 | | | nonrib-bearing lumbar vertebral type bodies. Vertebral body heights | | | are maintained. There is mild discogenic edema along the inferior | | | endplates of L3 and L5-S1 posteriorly. There is moderate disc space | | | narrowing at L3-4 and L5-S1. Bone marrow edema is also demonstrated | | | along the left pedicle of L5. There is no epidural fluid. Findings | | | by level: L1-2: No spinal canal or neural foraminal stenosis. | | | L2-3: There is an asymmetric disc which results in mild right | | | subarticular recess narrowing. No significant spinal canal or neural | | | foraminal stenosis is present. L3-4: There is a moderate | | | circumferential disc with moderate bilateral facet hypertrophy. There | | | is moderate bilateral subarticular recess narrowing. The bilateral | | | transiting L4 nerve root comes into close proximity with disc | | | material. The spinal canal is mildly stenotic. There is mild | | | bilateral neural foraminal stenosis without definite nerve root | | | impingement. L4-5: There is a moderate circumferential disc with | | | moderate facet arthropathy and ligamentum flavum thickening. The | | | bilateral transiting L5 nerve root comes into close proximity with | | | disc material but does not appear to be displaced. There is mild | | | bilateral neural foraminal stenosis without nerve root impingement. | | | L5-S1: There is a prominent lateral osteophyte that appears to | | | result in subtle displacement of the exiting left L5 nerve root beyond | | | the neural foramen. There appears to be severe left and moderate | | | right subarticular recess narrowing and potential impingement of the | | | left S1 nerve root as well. There is severe left and mild right facet | | | hypertrophy. The aorta and IVC are normal. The kidneys have a | | | normal reniform contour with no hydronephrosis. There is mild fatty | | | atrophy of the lower paraspinous musculature. | | + + + + + | Procedure Note | + + | Junior, Rad Conversion - 06/15/2019 1:42 PM TRES WAYNEFAWTHRLEIGHANN1945MRI | | LUMBAR SPINE WO CONTRAST07/17/2014 9:56 PM INDICATION: Back pain COMPARISON: Plain | | radiographs, 11/18/13 TECHNIQUE:Imaging was performed on a 1.5 Aretha MRI system. | | Multiplanar sequences according to a standard department protocol were acquired without | | contrast. FINDINGS: There is a mild levoscoliotic curvature present. There are 5 | | nonrib-bearing lumbar vertebral type bodies. Vertebral body heights are maintained. | | There is mild discogenic edema along the inferior endplates of L3 and L5-S1 posteriorly. | | There is moderate disc space narrowing at L3-4 and L5-S1. Bone marrow edema is also | | demonstrated along the left pedicle of L5. There is no epidural fluid. Findings by | | level: L1-2: No spinal canal or neural foraminal stenosis. L2-3: There is an asymmetric | | disc which results in mild right subarticular recess narrowing. No significant spinal | | canal or neural foraminal stenosis is present. L3-4: There is a moderate circumferential | | disc with moderate bilateral facet hypertrophy. There is moderate bilateral | | subarticular recess narrowing. The bilateral transiting L4 nerve root comes into close | | proximity with disc material. The spinal canal is mildly stenotic. There is mild | | bilateral neural foraminal stenosis without definite nerve root impingement. L4-5: There | | is a moderate circumferential disc with moderate facet arthropathy and ligamentum | | flavum thickening. The bilateral transiting L5 nerve root comes into close proximity | | with disc material but does not appear to be displaced. There is mild bilateral neural | | foraminal stenosis without nerve root impingement. L5-S1: There is a prominent lateral | | osteophyte that appears to result in subtle displacement of the exiting left L5 nerve | | root beyond the neural foramen. There appears to be severe left and moderate right | | subarticular recess narrowing and potential impingement of the left S1 nerve root as | | well. There is severe left and mild right facet hypertrophy. The aorta and IVC are | | normal. The kidneys have a normal reniform contour with no hydronephrosis. There is mild | | fatty atrophy of the lower paraspinous musculature. IMPRESSION: 1. Multilevel | | degenerative disc disease of the lumbar spine with mild discogenic edema at L3 and | | L5-S1.2. There is potential impingement of the left L5 and S1 nerve root due to | | degenerative changes as above.3. Reactive stress edema along the left pedicle of L5. | | | |impingement of the left S1 nerve root as well. There is severe left and mild right facet hy pertrophy. | | | |The aorta and IVC are normal. The kidneys have a normal reniform contour with no hydronephr osis. There is mild fatty atrophy of the lower paraspinous musculature. | | | |IMPRESSION: | |1. Multilevel degenerative disc disease of the lumbar spine with mild discogenic edema at L3 and L5-S1. | |2. There is potential impingement of the left L5 and S1 nerve root due to degenerative nidhi nges as above. | |3. Reactive stress edema along the left pedicle of L5. | | | | | + + MRI Thoracic Spine wo Contrast (07/17/2014 9:47 PM PDT) + + | Specimen | + + | | + + + + + | Impressions | Performed At | + + + | 1. There is no evidence of acute fracture of the thoracic spine. | | | No high-grade spinal canal stenosis is present. 2. Potential | | | intrahepatic biliary dilatation. 3. Moderate size hiatal hernia. | | | | | + + + + + + | Narrative | Performed At | + + + | [facility] SYKESHERTYFAW[facility]ROP 1945 MRI THORACIC SPINE WO CONTRAST | | | 07/17/2014 9:47 PM HISTORY: Back pain COMPARISON: None. | | | TECHNIQUE: Imaging was performed on a 1.5 Aretha MRI system. | | | Multiplanar sequences according to a standard department protocol | | | were acquired without contrast. FINDINGS: The bone marrow | | | demonstrates normal signal intensity. Vertebral body heights appear to | | | be maintained throughout the thoracic spine. The volume and signal | | | intensity of the thoracic cord appears within normal limits. There is | | | no epidural or prevertebral fluid. There is no paraspinous muscular | | | edema. The thoracic aorta is normal in caliber. No aneurysm or | | | dissection is present. There is no intraspinal mass lesion. No | | | high-grade spinal canal stenosis or neural foraminal narrowing is | | | present. There is a dextroscoliotic curvature which is incidentally | | | noted. There is a mild disc osteophyte complex at T7-8 which results | | | in minimal narrowing of the spinal canal. There appears to be | | | some atelectasis along the left lower lobe. There appears to be a | | | moderate-sized hiatal hernia. The intrahepatic biliary system appears | | | fairly generous which may suggest intrahepatic biliary dilation. | | + + + + + | Procedure Note | + + | Junior, Rad Conversion - 06/15/2019 1:42 PM PDT KORI [id number] | | THORACIC SPINE WO CONTRAST07/17/2014 9:47 PM HISTORY: Back pain COMPARISON: None. | | TECHNIQUE:Imaging was performed on a 1.5 Aretha MRI system. Multiplanar sequences | | according to a standard department protocol were acquired without contrast. FINDINGS: | | The bone marrow demonstrates normal signal intensity. Vertebral body heights appear to | | be maintained throughout the thoracic spine. The volume and signal intensity of the | | thoracic cord appears within normal limits. There is no epidural or prevertebral fluid. | | There is no paraspinous muscular edema. The thoracic aorta is normal in caliber. No | | aneurysm or dissection is present. There is no intraspinal mass lesion. No high-grade | | spinal canal stenosis or neural foraminal narrowing is present. There is a | | dextroscoliotic curvature which is incidentally noted. There is a mild disc osteophyte | | complex at T7-8 which results in minimal narrowing of the spinal canal. There appears to | | be some atelectasis along the left lower lobe. There appears to be a moderate-sized | | hiatal hernia. The intrahepatic biliary system appears fairly generous which may suggest | | intrahepatic biliary dilation. IMPRESSION: 1. There is no evidence of acute fracture | | of the thoracic spine. No high-grade spinal canal stenosis is present.2. Potential | | intrahepatic biliary dilatation.3. Moderate size hiatal hernia. | | | |There appears to be some atelectasis along the left lower lobe. There appears to be a moder ate-sized hiatal hernia. The intrahepatic biliary system appears fairly generous which may s uggest intrahepatic biliary dilation. | | | |IMPRESSION: | |1. There is no evidence of acute fracture of the thoracic spine. No high-grade spinal mario l stenosis is present. | |2. Potential intrahepatic biliary dilatation. | |3. Moderate size hiatal hernia. | | | | | + + documented in this encounter Visit Diagnoses + + | Diagnosis | + + | Intractable low back pain Lumbago | + + documented in this encounter
--- OUTSIDE RECORDS SUMMARY | ~2020-03-05 | XMS | Encounter Summary ---
Demographics + + + | Address | [address] | | | [place] [address] | + + + | Home Phone [...] Team Providers + +------+ + | Care Technical Instructor Name | Role | Phone | [...] [address] [facility], [place] | | | | | [facility], [place] | [address] | | | | | [address] | | | | | | [phone] | | | +--------+ + + + [...] [place] | | | | | | [id number] | | | | | | | | +--------+---------+ + + + | 04/03/ | Office | Cardiology | Zuleyka Castillo DO | | 2019 | Visit | | [address] | | | | | | [place] | | | | | | [address] | | | | | | | | +--------+---------+ + + + documented as of this encounter Visit Diagnoses Not on filedocumented in this encounter"
--- OUTSIDE RECORDS SUMMARY | ~2020-03-05 | XMS | Encounter Summary ---
Demographics + + + | Address | [address] | | | [place] [address] | + + + | Home Phone | | + + + | Preferred Language | Unknown | + + + | Marital Status | Single | + + + | Mormon Affiliation | NON | + + + [...] Team Providers + +------+ + | Care Edge Burnisher Name | Role | Phone | + [...] | Pain | Diagnoses | Cr, | Journeyman [employer] [facility] | | | | Management | PPS (pelvic | MD Britta | [address] | | | | | pain | [address] | [address] | | | | | syndrome) | [facility] | Mailcode: | | | | | Procedures | Rd | [facility] | | | | | CONSULT TO | [facility] [place] | for Health | | | | | PAIN CENTER | [address] | and Healing, | | | | | | Phone: | Building | | | | | | [phone] | [address] Floor | | | | | | Fax: | [place], [place] | | | | | | [phone] | [address] | | | | | | | Phone: | | | | | | | [phone] | | | | | | | Fax: | | | | | | | [phone] | +--------+--------+ + + + + Reason [...] Obstetrics & | Diagnoses | Ck | [facility] | | | | Gynecology | Unspecified | Lisa Back MD | [address] | | | | | symptom | [place] | [address] | | | | | associated | [place] | Aravind | | | | | with female | Urology [address] | [address] | | | | | genital | [address] | floor | | | | | organs | [address] [place], | [place], [place] | | | | | Unspecified | [place] [address] | [address] | | | | | urinary | Phone: | Phone: | | | | | incontinence | [phone] | [phone] | | | | | | Fax: | Fax: | | | | | | [phone] | [phone] | +--------+--------+ + + + + Encounter Details +--------+---------+ + + + | Date | Type | Department | Care Team | Description | +--------+---------+ + + + | 11/29/ | Office | [facility] | Britta Hankins MD | PPS (pelvic pain | | 2014 | Visit | [facility] | [address] | syndrome) (Primary | | | | [address] [place], | Dx); Depression with | | | | [address] [place] | [place] [address] | suicidal ideation; | | | | Riddhi, [facility] floor | [phone] | Recurrent UTI; | | | | [facility] [place] | | Hypoestrogenism | | | | [address] | | | | | | [phone] | | | +--------+---------+ + + + [...] 4. Referral to pain service here at [facility] 5. Let me know if you would [...] (2 vag, 1 cs, she had to [facility] hospitalized after her second delivery for infection) seen at the request of Dr. Ck wan r pelvic pain and LUTs following pelvic reconstructive surgery. She is accompanied by her so sadiq Ball. He lives here in [place] so he is not fully aware of her recent health issues but h e did help in providing some of his mother's past history. 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 Long gold, she was hospitalized at [facility] in 2005 for a Vicodin overdose. At [...] speaker, a good grandmother". Her physicians in [place] and elsewhere will not pre scribe pain [...] until she was able to leave her [employer] house at age 20. 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 Stover on return to [place]. I am Christine Monterroso functioning as a scribe for Dr. Britta Hankins. Christine Monterroso [facility] [address] [facility] [place] [facility] [place] [address] I have reviewed, verified, and amended the [...] for afternoon appointments. Britta Hankins M.D., FACS Adult Education Teacher [facility] documented in this encoun [...]
--- OUTSIDE RECORDS SUMMARY | ~2020-03-05 | XMS | Encounter Summary ---
Demographics + + + | Address | [address] | | | [place] [address] | + + + | Home Phone [...] Team Providers + +------+ + | Care Curb Setter Helper Name | Role | Phone | [...] + + | 04/28/ | Emergency | [facility] | Jean-Paul Flowers, | Chronic hip pain, | | 2014 | | [facility] | MD [address] | right (Primary Dx); | | | | CENTER [address] | [place] | Chronic low back | | | | [place] | [address] | pain; Frequent falls | | | | [address] | | | | | | [phone] | | | +--------+ + + + [...] Nugent MD - 04/28/2015Follow-up with Isaura from [facility] social work for assistance with home [...] [place] | | | | | | [address] | | | | | | | | +--------+---------+ + + + | 04/03/ | Office | Cardiology | Zuleyka Castillo DO | | | 2019 | Visit | | [address] | | | | | | [place] | | | | | | [address] | | | | | | | [...] VISIT TRACKING (1 MO.) Visit Date | [place] | | LocationTypeDiagnoses | | | VISIT TRACKING (3 MO.) Visit Date | | | Location Type | | | Diagnoses -------- | | | ---- | | | 04/28/2015 08:18 [facility] | | | Emergency -Right Hip to Toe 04/23/2015 10:50 [facility] | | | [facility] Care 04/13/2015 | | | 07:46 [facility] Emergency | | | -Other chronic [...] | not stated as uncontrolled 04/10/2015 14:37 [facility] | | | Hospital Emergency -Surgical or [...] | | | | -Dehydration 04/09/2015 10:50 [facility] | | | Urgent Care -History [...] as uncontrolled | | | 04/07/2015 07:45 [facility] | | | Urgent Care -Unspecified [...] in stool 03/26/2015 | | | 07:15 [facility] Emergency | | | -Diabetes mellitus [...] other | | | medications 03/07/2015 10:45 [facility] | | | Urgent Care -Loss [...] of weight | | | 02/17/2015 09:15 [facility] | | | Urgent Care -Dysuria [...] in | | | breast 02/14/2015 09:50 [facility] | | | Urgent Care -Other [...] chronic pain | | | 02/11/2015 09:00 [facility] | | | Urgent Care -Loss [...] ------ --------- 1 0 | | | [facility] 2 | | | 0 [facility] 15 | | | 0 [facility] 18 | | | 0 Total Note: Visits indicate total | | | known visits. [place] Dx are the number of primary diagnoses on | | | the [facility]'s non-emergent dx list. | | | | | | --- [facility] has no Care Guidelines for this patient. [place] | | | Prescription Review PDMP Report No PDMP report found. | | + + + + +---------+ + + | Performing | Address | City/State/Zipcode | Phone Number | | Organization | | | | + +---------+ + + | [place] | | | | + +---------+ + + documented in this encounter Visit Diagnoses + + | Diagnosis | + + | Chronic hip pain, right - Primary | + + | Chronic low back pain Lumbago | + + | Frequent falls Personal history of fall | + + documented in this encounter
--- OUTSIDE RECORDS SUMMARY | ~2020-03-05 | XMS | Encounter Summary ---
Demographics + + + | Address | [address] | | | [place] [address] | + + + | Home Phone [...] Providers + +------+ + | Care Electronic Technologist Name | Role | Phone | [...] | | | | | Juliana Schulte [place], | | | | | | [place] [address] | | | +--------+ + + + [...]
--- OUTSIDE RECORDS SUMMARY | ~2020-03-05 | XMS | Encounter Summary ---
Demographics + + + | Address | [address] | | | [place] [address] | + + + | Home Phone [...] Team Providers + +------+ + | Care Switch Tender Name | Role | Phone | [...] + + | 08/16/ | Telephone | [facility] | Shay Dietz | Appointment | | 2012 | | PHYSIATRY [address] | T, [address] | | | | | [address] | [address] [place] [facility] [place] | | | | | [facility] | [address] | | | | | [address] | | | | | | [phone] | | | +--------+ + + + [...] [place] | | | | | | [phone] | | | | | | | | +--------+---------+ + + + | 04/03/ | Office | Cardiology | Zuleyka Castillo DO | | 2019 | Visit | | [address] | | | | | | [place] | | | | | | [address] | | | | | | | | +--------+---------+ + + + documented as of this encounter Visit Diagnoses Not on filedocumented in this encounter"
--- OUTSIDE RECORDS SUMMARY | ~2020-03-05 | XMS | Encounter Summary ---
Demographics + + + | Address | [address] | | | [place] [address] | + + + | Home Phone [...] Providers + +------+ + | Care Shed Boss Name | Role | Phone | + +------+ + PCP | Unavailable | + +------+ + Encounter Details +--------+ + + + + | Date | Type | Department | Care Team | Description | +--------+ + + + + | 06/26/ | Respiratory | | Other, Faculty | | | 2006 | Therapy | | [phone] | | +--------+ + + + + [...] RADHA ALONZO | [address] | [place], [place] | | | DIAGNOSTICS - | [place] JIM | [address] | | | PULMONARY FUNCTION | | | | + + + + + documented in this encounter Visit Diagnoses Not on filedocumented in this encounter"
--- OUTSIDE RECORDS SUMMARY | ~2020-03-05 | XMS | Encounter Summary ---
Demographics + + + | Address | [address] | | | [place] [address] | + + + | Home Phone [...] Providers + +------+ + | Care Medical Researcher Name | Role | Phone | [...] 2013 | | PHYSIATRY [address] | RECORDING STUDIO SETUP WORKER | | | | | [address] | | | | | | [place] | | | | | | [address] | | | | | | [phone] | | | +--------+ + + + [...] [place] | | | | | | [address] | | | | | | | | +--------+---------+ + + + | 04/03/ | Office | Cardiology | Zuleyka Castillo DO | | | 2019 | Visit | | [address] | | | | | | [place] | | | | | | [address] | | | | | | | | +--------+---------+ + + + documented as of this encounter Visit Diagnoses Not on filedocumented in this encounter"
--- OUTSIDE RECORDS SUMMARY | ~2020-03-05 | XMS | Encounter Summary ---
Demographics + + + | Address | [address] | | | [place] [address] | + + + | Home Phone [...] Providers + +------+ + | Care Weed Cooking Operator Name | Role | Phone | [...] + + | 04/03/ | Telephone | [facility] | Nick Martinez, | Medication Question | | 2017 | | PHYSIATRY [address] | PA-C [address] | | | | | [address] | [address] [place] | | | | | [place], [place] | [place] [address] | | | | | [address] | [phone] | | | | | [phone] | | | +--------+ + + + [...] [place] | | | | | | [address] | | | | | | | | +--------+---------+ + + + | 04/03/ | Office | Cardiology | Zuleyka Castillo DO | | | 2020 | Visit | | [address] | | | | | | [place] | | | | | | [address] | | | | | | | | +--------+---------+ + + + documented as of this encounter Visit Diagnoses Not on filedocumented in this encounter"
--- OUTSIDE RECORDS SUMMARY | ~2020-03-05 | XMS | Encounter Summary ---
Demographics + + + | Address | [address] | | | [place] [address] | + + + | Home Phone [...] | Author | [facility] | | | and Priteshana | + + + | Organization | [facility] | | [...] Team Providers + +------+ + | Care Resaw Operator Name | Role | Phone | [...] | MRI Lumbar | [place], | [address] | | | | | Spine wo | [place] [address] | Phone: | | | | | Contrast | Phone: | [phone] | | | | | | [phone] | Fax: | | | | | | Fax: | [phone] | | | | | | [phone] | | +--------+--------+ + + + + Reason for Visit + + + | Reason | Comments | + + + | Follow-up | Discuss Injections | + + + Encounter Details +--------+---------+ + + + | Date | Type | Department | Care Team | Description | +--------+---------+ + + + | 04/03/ | Office | [facility] [place] | Nick Martinez, | Lumbar radiculopathy | | 2018 | Visit | PHYSIATRY [address] | PA-C [address] | (Primary Dx); BACK | | | | [address] | [address] [place] | PAIN, LUMBAR; | | | | [place], [place] | [place] [address] | SACROILIITIS; DDD | | | | [address] | [phone] | (degenerative disc | | | | [phone] | | disease), lumbar; | | | [...] of the procedure you must provide a local driver to take you home. For all [...] press against a nerve. Date Last Reviewed: 08/03/201519997755-9586 [employer]. [address] [place] [address], [place] [address]. All righ ts reserved. This information is [...] and working more hours due to the i.Meter Round up. 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 She has appropriate fund of [...] [place] | | | | | | [address] | | | | | | | | +--------+---------+ + + + | 04/03/ | Office | Cardiology | Zuleyka Castillo DO | | | 2019 | Visit | | [address] | | | | | | [place] | | | | | | [address] | | | | | | | [...]
--- OUTSIDE RECORDS SUMMARY | ~2020-03-05 | XMS | Encounter Summary ---
Demographics + + + | Address | [address] | | | [place] [address] | + + + | Home Phone [...] | Author | [facility] | | | and Priteshana | + + + | Organization | [facility] | | | and [...] Team Providers + +------+ + | Care Gis Specialist Name | Role | Phone | [...] | | [address] | [place] [address] | | | | | [place] | [phone] | | | | | [address] | | | | | | [phone] | | | +--------+ + + + [...] [place] | | | | | | [address] | | | | | | | | +--------+---------+ + + + | 04/03/ | Office | Cardiology | Zuleyka Castillo DO | | | 2020 | Visit | | [address] | | | | | | [place] | | | | | | [address] | | | | | | | | +--------+---------+ + + + documented as of this encounter Visit Diagnoses Not on filedocumented in this encounter"
--- OUTSIDE RECORDS SUMMARY | ~2020-03-05 | XMS | Encounter Summary ---
Demographics + + + | Address | [address] | | | [place] [address] | + + + | Home Phone [...] Providers + +------+ + | Care Internal Medicine Specialist Name | Role | Phone | [...] Provider Unknown | | | | | [place], [place] | | | | | | [address] | (Fax) | | | | | [phone] | | | +--------+ + + + [...] [place] | | | | | | [address] | | | | | | | | +--------+---------+ + + + | 04/03/ | Office | Cardiology | Zuleyka Castillo DO | | | 2019 | Visit | | [address] | | | | | | [place] | | | | | | [phone] | | | | | | | [...]
--- OUTSIDE RECORDS SUMMARY | ~2020-03-05 | XMS | Encounter Summary ---
Demographics + + + | Address | [address] | | | [place] [address] | + + + | Home Phone [...] Team Providers + +------+ + | Care Barrel Charrer Helper Name | Role | Phone | [...] | | [address] | [place] [address] | (Primary Dx); DISC | | | | [place], [place] | [phone] | DISEASE, LUMBAR; | | | | [address] | | Back pain, | | | | [phone] | | unspecified back | | | [...] [place] | | | | | | [address] | | | | | | | | +--------+---------+ + + + | 04/03/ | Office | Cardiology | Zuleyka Castillo DO | | | 2019 | Visit | | [address] | | | | | | [place], [place] | | | | | | [address] | | | | | | | [...]
--- OUTSIDE RECORDS SUMMARY | ~2020-03-05 | XMS | Encounter Summary ---
Demographics + + + | Address | [address] | | | [place] [address] | + + + | Home Phone [...] Team Providers + +------+ + | Care Affirmative Action Specialist Name | Role | Phone | [...] | [place], [place] | [place] [address] | | | | | [address] | [phone] | | | | | [phone] | | | +--------+ + + + [...] [place] | | | | | | [address] | | | | | | | | +--------+---------+ + + + | 04/03/ | Office | Cardiology | Zuleyka Castillo DO | | | 2020 | Visit | | [address] | | | | | | [place] | | | | | | [address] | | | | | | | | +--------+---------+ + + + documented as of this encounter Visit Diagnoses Not on filedocumented in this encounter"
--- OUTSIDE RECORDS SUMMARY | ~2020-03-05 | XMS | Encounter Summary ---
Demographics + + + | Address | [address] | | | [place] [address] | + + + | Home Phone [...] Team Providers + +------+ + | Care Human Resources Mgr Name | Role | Phone | + +------+ + | Wendi Aiken | PCP | | + +------+ + Encounter Details +--------+ + + + + | Date | Type | Department | Care Team | Description | +--------+ + + + + | 06/13/ | Hospital | [facility] | SonjaAlfredo DO | Closed compression | | 2018 | Encounter | [facility]ICAL [facility]ENTER | [address] | fracture of fifth | | | | CLINICAL DECISION | [place] [address] | lumbar vertebra, | | | | [address] | [phone] | initial encounter | | | | [place], [place] | | ([facility]) | | | | [address] | | | | | | [phone] | | | +--------+ + + + [...] by Cristiane Araujo RN at 06/13/181408 Author: Cristiane Araujo RN Service: (none) Author Type: Registered Nurse Filed: 06/13/181408 Date of Service: 06/13/181408 Status: Signed Apparatus Engineering Technologist: Cristiane Araujo RN (Registered Nurse) Pt discharge [...] Notes by Kiya Dietrich RN at 06/13/18 1003 Author: Kiya Dietrich RN Service: General Surgery Author Type: Registered Nurse Filed: 06/13/18 1002 Date of Service: 06/13/18 100 Status: Signed Apparatus Engineering Technologist: Kiya Dietrihc RN (Registered Nurse) Report given to nurse narayan in CDU, talked with DR. Casillas to get a verbal order for a di et and pain medication for stay in CDU. docume camacho in this encounter Plan of Treatment +--------+---------+ + + + | Date | Type | Specialty | Care Team | Description | +--------+---------+ + + + | 03/17/ | Office | Pain Medicine | Denys Sibley, | | | 2019 | Visit | | DO [address] | | | | | | [place] | | | | | | [address] | | | | | | | | +--------+---------+ + + + | 04/03/ | Office | Cardiology | Zuleyka Castillo DO | | | 2019 | Visit | | [address] | | | | | | [place] | | | | | | [address] | | | | | | | [...] At | + + + | KORI WAYNEKemiMATTHEWHROP XR C-ARM FLUORO UP TO 1 HOUR HISTORY: | | | 72 years. Female. Kyphoplasty. TECHNIQUE: 2 spot fluoroscopic | | | images of the lumbar spine. 333 seconds of fluoroscopy time is | | | utilized. | | + + + + + | Procedure Note | + + | Junior, Reji Conversion - 06/13/2019 8:20 AM PDT KORI WAYNE-FAWTHROPXR C-ARM | | [...] | | | Fingerstick | performed at [facility] [place] | | LAB | | | | [place]enda Donnelly;[place] | | | | | | [address] | | | | + + + [...]
--- OUTSIDE RECORDS SUMMARY | ~2020-03-05 | XMS | Encounter Summary ---
Demographics + + + | Address | [address] | | | [place] [address] | + + + | Home Phone [...] Team Providers + +------+ + | Care Accounting Supervisor Name | Role | Phone | [...] + + | 04/25/ | Emergency | [facility] | Billy Romo, | Concussion, without | | 2016 | | HOSPITAL EMERGENCY | [address] | LOC, initial | | | | [place] [address] MEDICAL | [employer], | encounter (Primary | | | | [place], [place] | [place] [address] | Dx); Cervical | | | | [address] | [phone] | strain, acute, | | | | [phone] | | initial encounter | +--------+ + [...] sent through Care Everywhere.CERVICAL STRAIN , UNDERSTANDING (TAJIK)CONCUSSION, AFTER (TAJIK)CONCUSSION, COPING WITH (TAJIK)manish disla in this encounter Medications at Time [...] [place] | | | | | | [address] | | | | | | | | +--------+---------+ + + + | 04/03/ | Office | Cardiology | Zuleyka Castillo DO | | | 2019 | Visit | | [address] | | | | | | [place] | | | | | | [phone] | | | | | | | [...] | | n - | | | 04/25/ | | | 2016 | | | 7:04 | | | [...] | | | FICATI | | | ON?/ | | | | | | 7 | | | 19:02? | | | DOHERT | | | Y-FAWT | | | HROP, | | | KORI | | | | | | L?MRN: | | | | | | [id number] | | | [id number] | | | his | | | [...] | | | St. | | | [place] | | | y H. | | [...] | | | St. | | | [place] | | | y | | | [...] | | | n, | | | CHILD PSYCHOMETRIST, | | | CHILD PSYCHOMETRIST | | | Primar | | | [...] | | | ? | | | 2016 | | | Collec | | | [...] Performed At | + + + | [address] | | | [place] [address] | | | NAME: KORI HARMON DATE: 04/25/2017 | | | : 1945 PT GENDER: F ROOM: ER PHYSICIAN: | | | BILLY ROMO PID#: [id number] CC TO: MR#: | | | PROCEDURE: [...] Rad Results In - 04/27/2017 9:10 AM [facility] | | [address] [facility] | | [place], [place] [address] | | | | | | NAME: KORI HARMON DATE: 04/25/2017 | | : 1945 PT GENDER: F ROOM: ER | | PHYSICIAN: BILLY ROMO PID#: [id number] | | CC TO: #: | | | | PROCEDURE: CT CERVICAL [...] Performed At | + + + | [address] | | | [place] [address] | | | NAME: KORI HARMON DATE: 04/25/2017 | | | : 1945 PT GENDER: F ROOM: ER PHYSICIAN: | | | IBLLY ROMO PID#: [id number] CC TO: MR#: | | | PROCEDURE: [...] Isaias on 04/25/2017 at 20:05 Transcribed by: MM on 04/26/2017 | | | at 8:44 | | + + + + + | Procedure Note | + + | Doug, Reji Results In - 04/27/2017 9:10 AM [facility] | | [address] [facility] | | [place], [place] [address] | | | | | | NAME: KORI HARMON DATE: 04/25/2017 | | : 1945 PT GENDER: F ROOM: ER | | PHYSICIAN: BILLY ROMO PID#: [id number] | | CC TO: MR#: | | [...] 04/25/2017 at 20:05 | | Transcribed by: SHELLI on 04/26/2017 at 8:44 | | | | | | | + + Protime INR (04/25/2017 7:20 PM PDT) + + + + + + | Component | Value | Ref Range | Performed | Pathologist | | | | | At | Signature | + + + + + + | Prothrombin | 10.2Comment: PROTIME: | 10.0 - 12.0 | [place] | | | Time | | seconds [...] | + + + + + | [facility] | [address] | [place], [place] | [phone] | | HOSPITAL LABORATORY | | [address] | | + + + + + [...] 21 | 5 - 26 mg/dL | [place] | | | | | | COMMUNITY | | | | | | HOSPITAL | | | | | | LABORATORY | | + + + + + + | Creatinine | 0.83 | >.60-<1.30 | [place] | | | | | mg/dL | COMMUNITY | | | | | | HOSPITAL | | | | | | LABORATORY | | + + + + + + | eGFR if not | >60Comment: GLOMERULAR | >=60 | [place] | | | | FILTRATION | mL/min/1.73m2 | [facility] | | | [facility] | RATE,ESTIMATED | | HOSPITAL | | | | mL/min/1.58r7Abcr than | | LABORATORY | | | [...] 8.2 (L) | 8.3 - 10.0 | [place] | | | | | mg/dL | COMMUNITY | | | | | | HOSPITAL | | | | | | LABORATORY | | + + + + + + | Albumin | 3.8 | 3.0 - 4.5 g/dL | [facility] | | | | | | COMMUNITY [...] 19 | 16 - 38 U/L | [place] | | | | | | COMMUNITY | | | | | | HOSPITAL | | | | | | LABORATORY | | + + + + + + | ALT | 31 | 18 - 63 U/L | [place] | | | | | | COMMUNITY | | | | | | HOSPITAL | | | | | | LABORATORY | | + + + + + + | Alkaline | 68 | 50 - 136 U/L | [place] | | | Phosphatase | | | COMMUNITY | | | | | | HOSPITAL | | | | | | LABORATORY | | + + + + + + | Globulin | 3.0 | 1.5 - 3.5 g/dL | [place] | | | | [...] | + + + + + | [facility] | [address] | [place], [place] | [phone] | | HOSPITAL LABORATORY | | [address] | | + + + + + CBC with Differential (04/25/2017 7:20 PM PDT) + + + + + + | Component | Value | Ref Range | Performed | Pathologist | | | | | At | Signature | + + + + + + | WBC | 6.1 | >4.5-<11.0 K/uL | [place] | | | | | | COMMUNITY | | | | | | HOSPITAL | | | | | | LABORATORY | | + + + + + + | RBC | 4.36 (L) | 4.50 - 6.00 | [place] | | | | | M/uL | COMMUNITY | | [...] | 0.03 | 0.00 - 0.20 | [place] | | | Basophils | | K/uL [...] | + + + + + | [facility] | [address] | [place], [place] | [phone] | | HOSPITAL LABORATORY | | [address] | | + + + + + documented in this encounter Visit Diagnoses + + | Diagnosis | + + | Concussion, without LOC, initial encounter - Primary | + + | Cervical strain, acute, initial encounter | + + documented in this encounter
--- OUTSIDE RECORDS SUMMARY | ~2020-03-05 | XMS | Encounter Summary ---
Demographics + + + | Address | [address] | | | [place] [address] | + + + | Home Phone [...] Author + + + | Author | [facility] | + + + | Organization | [facility] | + + + | Address | Unknown | + + + | Phone | Unavailable | + + + Support + + +---------+ + | Name | Relationship | Address | Phone | + + +---------+ + | Royce Menchaca | ECON | Unknown | | + + +---------+ + Care Team Providers + +------+ + | Care Source Water Protection Specialist Name | Role | Phone | + +------+ + | Oxana Nye | PCP | | + +------+ + Encounter Details +--------+------+ + + + | Date | Type | Department | Care Team | Description | +--------+------+ + + + | 03/09/ | Lab | Laboratory at [facility] | | Chest pain, | | 2015 | | [address] | | unspecified type | | | | [place], [place] | | | | | | [address] | | | | | | [phone] | | | +--------+------+ + + + [...] NON-HDL | 54 | <=130 mg/dL | [facility] | | | CHOLESTEROL | | [...] | + + + + + | [facility] | [address] | [place], [place] | | | | [address] | [address] | | + + + + + documented in this encounter Visit Diagnoses + + | Diagnosis | + + | Chest pain, unspecified type | + + documented in this encounter"
--- OUTSIDE RECORDS SUMMARY | ~2020-03-05 | XMS | Encounter Summary ---
Demographics + + + | Address | [address] | | | [place] [address] | + + + | Home Phone [...] Team Providers + +------+ + | Care Mold Machine Operator Name | Role | Phone [...] Provider Unknown | | | | | [place], [place] | | | | | | [address] | (Fax) | | | | | [phone] | | | +--------+ + + + [...] [place] | | | | | | [address] | | | | | | | | +--------+---------+ + + + | 04/03/ | Office | Cardiology | Zuleyka Castillo DO | | | 2019 | Visit | | [address] | | | | | | [place] | | | | | | [phone] | | | | | | | [...]
--- OUTSIDE RECORDS SUMMARY | ~2020-03-05 | XMS | Encounter Summary ---
Demographics + + + | Address | [address] | | | [place] [address] | + + + | Home Phone [...] | Author | [facility] | | | and Priteshana | + + + | Organization | [facility] | | [...] Team Providers + +------+ + | Care Block Greaser Name | Role | Phone | + [...] + + | 10/15/ | Office | [facility] | Denys Sibley, | Spinal stenosis of | | 2019 | Visit | [facility] | DO [address] | lumbosacral region | | | | [address] [place] | (Primary Dx); Lumbar | | | | [address] | [address] | region somatic | | | | [place], [place] | | dysfunction; | | | | [address] | | Intractable back | | | | [phone] | | pain; Chronic | | | | | | [...] | | | | | | encounter; DDD | | | | | | (degenerative disc | | | | | | disease), lumbar; | | | | | | Chronic [...] | | | | | left L5-S1; S/P | | | | | | insertion of spinal | | | | | | cord stimulator; | | | | | | Encounter [...] + + + | Blood Pressure | 113/57 | 10/15/2019 3:20 PM | | | | | PST | | + + + + + | Pulse | 77 | 10/15/2019 3:20 PM | | | | | PST | | + + + + + | Temperature | - | - | | + + + + + | Respiratory Rate | 16 | 10/15/2019 3:20 PM | | | | | PST | | + + + + + | Oxygen Saturation | 100% | 10/15/2019 3:20 PM | | | | | PST | | + + + + + | Inhaled Oxygen | - | - | | | Concentration | | | | + + + + + | Weight | 48.1 kg (106 lb) | 10/15/2019 3:20 PM | | | | | PST | | + + + + + | Height | 154.9 cm (5' 1") | 10/15/2019 3:20 PM | | | | | PST | | + + + + + | Body Mass Index | 20.03 | 10/15/2019 3:20 PM | | | | | PST | | + + + + + documented in this encounter Progress Denys Posada, DO - 10/15/2019 4:00 PM PSTFormatting of this note might be different fr om the original. CHRONIC PAIN VISIT Patient ID: Kori Rubio is a 74 y.o. female (: 1945). 74-year-old female seen back to the office today for medication evaluation follow-up. Current medications include a fentanyl patch 12 mcg applied to the anterior chest wall ever y 74 hours. Sebree 10/325 1 p.o. every 6 hours as [...] including but not limited to physical therapy, healthcare administrative assistant, acupuncture, massage therapy, and nutritional healt h counselors. and mental health counselors as deemed necessary Today's Pain Score: 4/10. Patient states that her pain overall has [...] general activity) Total score: (Printable questionnaires in Mozambican ) Interpretation of Total Score: PEG scores are used to track changes over time. It should de crease after therapy has begun. Last 4 PEG Scores: No flowsheet data found. Opioid Risk Tool (ORT): Total Score Pulse: 77 Resp: 16 BP: 113/57 SpO2: 100 % (From Chronic Pain tab; printable questionnaires in Mozambican) Interpretation of Total Score: 0 to 3 = Low risk: 6% chance of developing problematic behav iors, 4 to 7 = Moderate risk: 28% chance of developing problematic behaviors, 8 or more = Hi gh risk: 90% chance of developing problematic behaviors. No flowsheet data found. Outpatient Morphine Equivalent Daily Dose (MEDD) None @[email or web address]@ Current Outpatient Medications: ALBUTEROL IN, [...] WEEK (TUESDAY THR), Disp: , Rfl: 0 levothyroxine (SYNTHROID) 100 mcg tablet, [...] Scoliosis Scoliosis of lumbar spine 04/17/2014 Seizure ([facility]) one due to meds, two due [...] Scoliosis Scoliosis of lumbar spine 04/17/2014 Seizure ([facility]) one due to meds, two due [...] Casillas DO; Location: [facility] MAIN OR; Service: Pa in Management; Laterality: N/A; L5 FRACTURE SURGERY ANKLE HERNIA REPAIR HYSTERECTOMY HYSTERECTOMY LAMINECTOMY N/A 08/03/2019 Procedure: LAMINOTOMY THORACIC / LUMBAR W/ PLACEMENT SPINAL CORD STIMULATOR; Surgeon: Suly Hutchins MD; Location: [facility] MAIN OR OTHER SURGICAL HISTORY EPIDURAL STEROID INJECTION OTHER SURGICAL HISTORY 08/28/2018 EPIDURAL STEROID INJECTION - LESI L4-L5 OTHER SURGICAL HISTORY 09/11/2018 EPIDURAL STEROID INJECTION - LESI L5-S1 OTHER SURGICAL HISTORY UNLISTED PROCEDURE ARTHROSCOPY SLING REMOVAL , BLADDER 2006 TUBAL LIGATION UPPER GASTROINTESTINAL ENDOSCOPY Review of Systems Objective: Vital Signs: BP 113/57 | Pulse 77 | Resp 16 | Ht 1.549 m (5' 1") | Wt 48.1 kg (106 lb) | LMP (LMP Unknown) | SpO2 100% | BMI 20.03 kg/m Physical Exam No results found for [...] reviewed, listed controlled substances are consistent with kno wn prescriptions and patient reported use. Controlled Medications: [...] = high risk) Daily Opioid Dose = Sebree 10/325 1 p.o. every 4 hours. Discontinue the fentanyl patch Daily Morphine Equivalent Dose (MED) = 60 [...] medication which we are attempting to do. After lengthy discussion with the patient we decided to taper off of the fentanyl patch inc reased her Sebree to every 4 hours. Patient understands this and is in full agreement. Madison ent return the office in 4 weeks reevaluation. Return in about 4 weeks (around 11/12/2019). Greater than 50% of the time of this visit was spent counseling the patient regarding medic ation management and/or coordinating care with other practitioners including Allied health p rofessionals and laboratory monitoring. No notes on file @[email or web address]@ Alternative treatment modalities where discussed and offered to patient including but not l imited to physical therapy, massage therapy, acupuncture, healthcare administrative assistant, along with niki mmended psychological counseling, either privately, or in group sessions offered by private care individuals, community services, or nondenominational organizations. Appropriate referrals were made at patient [...] and complications with the passage of time. termination clerk use is also associated with depressions, and liver and renal failure. Finally, these medicines are associated with both physical and emotional addiction and can be difficult to stop after taking for only a few weeks. This document has been created using [employer] Recognition software and theDrop. The entry has been reviewed for content and accuracy, but there may still exist "sound alike" wheel and caster repairer word errors and/or unintended additions and deletions. If there is any question please contact the author of the document: Denys Sibley DOElectronically sig marianne by Denys Sibley DO at 10/15/2019 4:12 PM PSTdocumented in this encounter Plan of Treatment +--------+---------+ + + + | Date | Type | Specialty | Care Team | Description | +--------+---------+ + + + | 03/17/ | Office | Pain Medicine | Denys Sibley, | | | 2019 | Visit | | DO [address] | | | | | | [place] | | | | | | [address] | | | | | | | | +--------+---------+ + + + | 04/03/ | Office | Cardiology | Zuleyka Castillo DO | | 2019 | Visit | | [address] | | | | | | [place] | | | | | | [id number] | | | | | | | [...] Backache, unspecified | + + | Chronic bilateral low back pain without sciatica | + + | Low back pain without sciatica, unspecified back pain laterality, unspecified | | chronicity | + + | Spondylosis without myelopathy or radiculopathy, cervical region | + + | Spondylosis without myelopathy or radiculopathy, lumbosacral region | + + | Closed compression fracture of L5 lumbar vertebra with routine healing, subsequent | | encounter | + + | DDD (degenerative disc disease), lumbar Degeneration of lumbar or lumbosacral | | intervertebral disc | + + | Chronic bilateral low [...]
--- OUTSIDE RECORDS SUMMARY | ~2020-03-05 | XMS | Encounter Summary ---
Demographics + + + | Address | [address] | | | [place] [address] | + + + | Home Phone [...] Providers + +------+ + | Care Nurse Practitioner Per Diem Name | Role | Phone | + [...] | 05/01/ | Office | [facility] | Shay Dietz | BACK PAIN, LUMBAR | | 2012 | Visit | [address]ATRY [address] | [address] | (Primary Dx); DISC | | | | [address] | [place], [place] | DISEASE, LUMBAR; | | | | [place], [place] | [address] | OSTEOARTHRITIS, | | | | [address] | | LUMBOSACRAL SPINE | | | | [phone] | | | +--------+---------+ + + + [...] - 05/01/2013 11:20 AM [facility] before your scheduled procedure [...] off ice. Please also provide a tractor trailer moving van driver to take you home on the [...] the most recent injection was performed by co on 11/09/2012. She reports good relief with [...] a letter to the caregivers at the [facility] to allow them to give her a [...] | | | | | | [facility] [facility] [place] | | | | | | [id number] | | | | | | | | +--------+---------+ + + + | 04/03/ | Office | Cardiology | Zuleyka Castillo DO | | | 2019 | Visit | | [address] | | | | | | [place] | | | | | | [address] | | | | | | | [...]
--- OUTSIDE RECORDS SUMMARY | ~2020-03-05 | XMS | Encounter Summary ---
Demographics + + + | Address | [address] | | | [place] [address] | + + + | Home Phone [...] Team Providers + +------+ + | Care Aircraft Navigator Name | Role | Phone | + +------+ + PCP | Unavailable | + +------+ + Encounter Details +--------+ + + + + | Date | Type | Department | Care Team | Description | +--------+ + + + + | 12/08/ | Hospital | [facility] | | | | 1994 - | Encounter | MED CTR GENERIC PSY | | | | | | CONV DEPT [address] | | | | 12/18/ | | [place], | | | | 1992 | | [place] [address] | | | | | | [phone] | | | +--------+ + + + [...] [place] | | | | | | [address] | | | | | | | | +--------+---------+ + + + | 04/03/ | Office | Cardiology | Zuleyka Castillo DO | | | 2020 | Visit | | [address] | | | | | | [place] | | | | | | [address] | | | | | | | | +--------+---------+ + + + documented as of this encounter Visit Diagnoses Not on filedocumented in this encounter"
--- OUTSIDE RECORDS SUMMARY | ~2020-03-05 | XMS | Encounter Summary ---
Demographics + + + | Address | [address] | | | [place] [address] | + + + | Home Phone [...] Team Providers + +------+ + | Care Webfed Offset Press Operator Name | Role | Phone | + +------+ + | No, Physician | PCP | Unavailable | + +------+ + Encounter Details +--------+ + + + + | Date | Type | Department | Care Team | Description | +--------+ + + + + | 01/03/ | [facility] | [facility] | Shay Dietz | | | 2013 | Encounter | MED CTR XRAY [address] | T, [address] | | | | | [place] | [place] | | | | | [place] [address] | [address] | | | | | [phone] | | | +--------+ + + + [...] [place] | | | | | | [address] | | | | | | | | +--------+---------+ + + + | 04/03/ | Office | Cardiology | Zuleyka Castillo DO | | | 2019 | Visit | | [address] | | | | | | [place] | | | | | | [phone] | | | | | | | | +--------+---------+ + + + documented as of this encounter Visit Diagnoses Not on filedocumented in this encounter"
--- OUTSIDE RECORDS SUMMARY | ~2020-03-05 | XMS | Encounter Summary ---
Demographics + + + | Address | [address] | | | [place] [address] | + + + | Home Phone [...] Team Providers + +------+ + | Care Lithographic Retoucher Apprentice Name | Role | Phone | [...] | | | stenosis | B | [address] | | | | | | [place], [place] | Phone: | | | | | | [address] | [phone] | | | | | | Phone: | Fax: | | | | | | [phone] | [phone] | | | | | | Fax: | | | | | | | [phone] | | + +--------+ + + + + Encounter Details +--------+---------+ + + + | Date | Type | Department | Care Team | Description | +--------+---------+ + + + | 08/16/ Office | [facility] | Denys Sibley, | S/P insertion of | | 2018 | Visit | [facility] | DO [address] | spinal cord | | | | [address] | [address] [place] | stimulator (Primary | | | | [address] | [address] | Dx); Spinal stenosis | | | | [place], [place] | | of lumbosacral | | | | [address] | | region; Intractable | | | | [phone] | | back pain; Encounter | | [...] anterior chest wall every 72 hours, and [place] 7.5/325 1 p.o. every 6 hours as [...] Screen 08/03/2019 NEGATIVE Final BB BAND 08/03/2019 [id number] Final BB BAND 08/03/2019 Testing performed at [facility];[address] [place] [address];[place] [address] Final Glucose, POC 08/03/2019 77 65 - [...] Final Antibody Screen 07/18/2019 Testing performed at [facility];[address] [place] [address];[place] [address] Final SOURCE: 07/18/2019 NARES(NOSE) Final Result 07/18/2019 [...] to physical therapy, mass age therapy, acupuncture, care manager, along with recommended psychological counseling , either privately, or in group sessions offered by private care individuals, community serv ices, or church organizations. Appropriate referrals were made at patient [...] every 72 hours con tinue with the [place] 10/325 1 p.o. every 6 hours as needed breakthrough pain and Robaxin 500 mg every 6 hours as needed muscle spasms Patient understands and is in full agreement with the above plan, Will return to office in 4 weeks, [facility] was consulted and appears appropriate, [...] [place] | | | | | | [address] | | | | | | | | +--------+---------+ + + + | 04/03/ | Office | Cardiology | Zuleyka Castillo DO | | | 2019 | Visit | | [address] | | | | | | [place] | | | | | | [address] | | | | | | | [...]
--- OUTSIDE RECORDS SUMMARY | ~2020-03-05 | XMS | Encounter Summary ---
Demographics + + + | Address | [address] | | | [place] [address] | + + + | Home Phone [...] Team Providers + +------+ + | Care Shipping Helper Name | Role | Phone | [...] | | [address] | [place] [address] | | | | | [place] | [phone] | | | | | [address] | | | | | | [phone] | | | +--------+ + + + [...] [place] | | | | | | [address] | | | | | | | | +--------+---------+ + + + | 04/03/ | Office | Cardiology | Zuleyka Castillo DO | | | 2020 | Visit | | [address] | | | | | | [place] | | | | | | [address] | | | | | | | | +--------+---------+ + + + documented as of this encounter Visit Diagnoses Not on filedocumented in this encounter"
--- OUTSIDE RECORDS SUMMARY | ~2020-03-05 | XMS | Encounter Summary ---
Demographics + + + | Address | [address] | | | [place] [address] | + + + | Home Phone [...] Team Providers + +------+ + | Care Hammer Runner Name | Role | Phone | + [...] + + | 02/10/ | Telephone | [facility] | Denys Sibley, | Appointment | | 2020 | | [facility]ENTER | DO [address] | | | | | [address] | [address] [place], [place] | | | | | [address] | [address] | | | | | [place], [place] | | | | | | [address] | | | | | | [phone] | | | +--------+ + + + [...] [place] | | | | | | [address] | | | | | | | | +--------+---------+ + + + | 04/03/ | Office | Cardiology | Zuleyka Castillo DO | | | 2020 | Visit | | [address] | | | | | | [place] | | | | | | [address] | | | | | | | | +--------+---------+ + + + documented as of this encounter Visit Diagnoses Not on filedocumented in this encounter"
--- OUTSIDE RECORDS SUMMARY | ~2020-03-05 | XMS | Encounter Summary ---
Demographics + + + | Address | [address] | | | [place] [address] | + + + | Home Phone [...] Team Providers + +------+ + | Care Learning Specialist Name | Role | Phone | + +------+ + | Wendi Aiken | PCP | | + +------+ + Encounter Details +--------+ + + + + | Date | Type | Department | Care Team | Description | +--------+ + + + + | 04/07/ | Imaging | [facility] | Provider, | | | 2018 | Exam | MED CTR EXTERNAL | MD [address] | | | | | IMAGING [address] | [address] | | | | | [facility] | [place] [address] | | | | | [place] [address] | | | | | | [phone] | | | +--------+ + + + [...] [place] | | | | | | [address] | | | | | | | | +--------+---------+ + + + | 04/03/ | Office | Cardiology | Zuleyka Castillo DO | | | 2019 | Visit | | [address] | | | | | | [place] | | | | | | [address] | | | | | | | [...]
--- OUTSIDE RECORDS SUMMARY | ~2020-03-05 | XMS | Encounter Summary ---
Demographics + + + | Address | [address] | | | [place] [address] | + + + | Home Phone [...] Team Providers + +------+ + | Care Watershed Manager Name | Role | Phone | + +------+ + | Concepción Gallardo NP | PCP | | + +------+ + Encounter Details +--------+ + + + + | Date | Type | Department | Care Team | Description | +--------+ + + + + | 11/26/ | Hospital | [facility] | Conversion | Peripheral vertigo, | | 2016 | Encounter | [facility] MRI [address] | Transaction, | unspecified | | | | [address] | Provider Unknown | laterality; | | | | [place], [place] | | Post-concussion | | | | [address] | (Fax) | vertigo | | | | [phone] | | | +--------+ + + + [...] Note by Rosy Bautista RN at 11/26/15 7142 Author: Rosy Bautista RN Service: (none) Author Type: Registered Nurse Filed: 11/26/15 0936 Date of Service: 11/26/15 1970 Status: Signed Golf Superintendent: Rosy Bautista RN (Registered Nurse) Responded to [...] the er befor e returning home to [place]. Pt reluctant but willing to go to [...] [place] | | | | | | [id number] | | | | | | | | +--------+---------+ + + + | 04/03/ | Office | Cardiology | Zuleyka Castillo DO | | | 2019 | Visit | | [address] | | | | | | [place] | | | | | | [address] | | | | | | | [...] At | + + + | KORI RAMSEYWTHRLEIGHANN 11/26/2015 10:44 AM HISTORY: Peripheral | | [...] Junior, Rad Conversion - 06/14/2019 7:15 PM PDT KORI GUTIERREZTYFAWTHROP11/26/2015 10:44 | | AM HISTORY:Peripheral vertigo, unspecified [...] | | | Fingerstick | performed at [facility];[address] | | LAB | | | | [address];[place] | | | | | | [address] | | | | + + + [...]
--- OUTSIDE RECORDS SUMMARY | ~2020-03-05 | XMS | Encounter Summary ---
Demographics + + + | Address | [address] | | | [place] [address] | + + + | Home Phone [...] Team Providers + +------+ + | Care Sight Mounter Name | Role | Phone | + +------+ + PCP | Unavailable | + +------+ + Encounter Details +--------+ + + + + | Date | Type | Department | Care Team | Description | +--------+ + + + + | 02/22/ | Hospital | [facility] | Ken Craft | | | 2005 - | Encounter | [facility] | MD Masha [address] | | | | | TH ADULT [address] [place], [place] | | | 02/28/ | | [address] [place], [place] | [address] | | | 2005 | | [address] | | | | | | [phone] | Samantha Estes | | | | | | MD Jewel [address] | | | | | | [address] | | | | | | [place] [address] | | | | | | | [...] | | | | | | [place] | | | | | | [address] | | | | | | | | +--------+---------+ + + + | 04/03/ | Office | Cardiology | Zuleyka Castillo DO | | | 2019 | Visit | | [address] | | | | | | [place] | | | | | | [id number] | | | | | | | | +--------+---------+ + + + documented as of this encounter Visit Diagnoses Not on filedocumented in this encounter"
--- OUTSIDE RECORDS SUMMARY | ~2020-03-05 | XMS | Encounter Summary ---
Demographics + + + | Address | [address] | | | [place] [address] | + + + | Home Phone [...] Team Providers + +------+ + | Care Final Cigar And Box Examiner Name | Role | Phone | [...] low back | PA-C [address] | [address] | | | | | pain with | [address], | AVE | | | | | right-sided | [address] | [place], [place] | | | | | sciatica | [place] | [address] | | | | | Facet | [address] | Phone: | | | | | arthritis of | Phone: | [phone] | | | | | lumbar | [phone] | Fax: | | | | | region | Fax: | [phone] | | | | | Foraminal | [phone] | | | | | | stenosis [...] | Popeye, | | | | | Lighting Engineer / | Low back | Oxana Solorio, | [place], | | | | Physical | pain | MACHINE ENGINEER [address] | [place] | | | | Medicine and | Bilateral | [address] [place] | [address] | | | | Rehabilitatio | leg pain | [place], | [address] | | | | n | Bilateral | [place] [address] | [place] | | | | | hip pain | Phone: | [address] Phone: | | | | | low back | [phone] | [phone] | | | | | pain, | Fax: | Fax: | | | | | bilateral | [phone] | [phone] | | | | | leg pain [...] + | 07/06/ | Office | [facility] | [place], | Bursitis, hip, right | | 2015 | Visit | PH[address]SIATRY [address] | [place] [address] | (Primary Dx); | | | | [address] | [address], [address] | Chronic right-sided | | | | [place], [place] | [place] [address] | low back pain with | | | | [address] | [phone] | right-sided | | | | [phone] | | sciatica; Facet | | | | | | arthritis of lumbar | | | | | | region ([facility]); | | | | | | Foraminal [...] 07/06/2016 9:31 AM PDT1) Lumbar MRI in [place] - you need to call us when [...] of the procedure you must provide a hammer driver to take you home. For all [...] and working more hours due to the [employer] Round up. Her pain back is worse [...] deficits with short or long term care phlebotomist memory. She has appropriate fund of knowledge [...] PT (multiple sessions over the years) and direct care provider. Unfortunately she lola nues to have significant [...] has been ordered to be done at [place] [address]. We will follow up once images are back. ELECTRONICALLY SIGNED BY: Yaneli Dueñas PA-C, 07/06/2016 documented in t his encounter Plan of Treatment +--------+---------+ + + + | Date | Type | Specialty | Care Team | Description | +--------+---------+ + + + | 03/17/ | Office | Pain Medicine | Denys Sibley, | | | 2019 | Visit | | DO [address] | | | | | | [address] [place] | | | | | | [address] | | | | | | | | +--------+---------+ + + + | 04/03/ | Office | Cardiology | Zuleyka Castillo DO | | 2019 | Visit | | [address] | | | | | | [place] | | | | | | [id number] | | | | | | | [...] 07/06/2016 Bilateral Lumbar Facet Steroid Injections | [facility] | | Diagnosis: Lumbar Spondylosis ICD-10 Code M47.816 Kori Caputo | [facility] | | Joanne presents to the fluoroscopy suite for | [facility] | | fluoroscopically-guided bilateral L5-S1 facet [...] [address] | [address] | [place] | [phone] | | [facility] | | [address] | | | - IMAGING | | [...]
--- OUTSIDE RECORDS SUMMARY | ~2020-03-05 | XMS | Encounter Summary ---
Demographics + + + | Address | [address] | | | [place] [address] | + + + | Home Phone [...] Team Providers + +------+ + | Care Brick And Block Mason Name | Role | Phone | + [...] [address] | [place] | | | | | [place], [place] | [address] | | | | | [address] | | | | | | [phone] | | | +--------+ + + + [...] [place] | | | | | | [id number] | | | | | | | | +--------+---------+ + + + | 04/03/ | Office | Cardiology | Zuleyka Castillo DO | | | 2019 | Visit | | [address] | | | | | | [place] | | | | | | [address] | | | | | | | | +--------+---------+ + + + documented as of this encounter Visit Diagnoses Not on filedocumented in this encounter"
--- OUTSIDE RECORDS SUMMARY | ~2020-03-05 | XMS | Encounter Summary ---
Demographics + + + | Address | [address] | | | [place] [address] | + + + | Home Phone [...] Team Providers + +------+ + | Care Inverted Block Operator Name | Role | Phone | [...] + + | 02/10/ | Telephone | [facility] | Denys Sibley, | Appointment | | 2020 | | NEUROS[facility]ENCE [facility]ENTER | DO [address] | | | | | [address] | [address] [place], [place] | | | | | [address] | [address] | | | | | [place], [place] | | | | | | [address] | | | | | | [phone] | | | +--------+ + + + [...] [place] | | | | | | [address] | | | | | | | | +--------+---------+ + + + | 04/03/ | Office | Cardiology | Zuleyka Castillo DO | | | 2020 | Visit | | [address] | | | | | | [address] [address] [place] | | | | | | [address] | | | | | | | | +--------+---------+ + + + documented as of this encounter Visit Diagnoses Not on filedocumented in this encounter"
--- OUTSIDE RECORDS SUMMARY | ~2020-03-05 | XMS | Encounter Summary ---
Demographics + + + | Address | [address] | | | [place] [address] | + + + | Home Phone | | + + + | Preferred Language | Unknown | + + + | Marital Status | Single | + + + | Voodoo Affiliation | NON | + + + [...] Team Providers + +------+ + | Care Poultry Scientist Name | Role | Phone | + +------+ + PCP | Unavailable | + +------+ + Encounter Details +--------+ + + + + | Date | Type | Department | Care Team | Description | +--------+ + + + + | 06/26/ | Respiratory | | Other, Faculty | | | 2006 | Therapy | | [phone] | | +--------+ + + + + [...] RADHA ALONZO | [address] | [place], [place] | | | DIAGNOSTICS - | JORGE LUIS JIM | [address] | | | PULMONARY FUNCTION | | | | + + + + + documented in this encounter Visit Diagnoses Not on filedocumented in this encounter"
--- OUTSIDE RECORDS SUMMARY | ~2020-03-05 | XMS | Encounter Summary ---
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 Removed Ranitidine and Myrbetriq from med list as these have not been filled in the last 3 months. Please see VOCATIONAL COORDINATOR med list for updated medication list. Electronically [...] [place] | | | | | | [id number] | | | | | | | | +--------+---------+ + + + | 04/03/ | Office | Cardiology | Zuleyka Castillo DO | | | 2020 | Visit | | [address] | | | | | | [place] | | | | | | [address] | | | | | | | [...] L?MRN: | | | | | | [id number] | | | [id number] | | | ecurit | | | [...] | | | St. | | | [facility] | | | y | | | [...] | | | St. | | | [facility] | | | y H. | | [...] | | | St. | | | [facility] | | | y H. | | [...] | | | St. | | | [facility] | | | y H. | | [...] | | | St. | | | [facility] | | | y H. | | [...] | | | St. | | | [facility] | | | y H. | | [...] | | | St. | | | [facility] | | | y H. | | [...] | | | St. | | | [facility] | | | y | | | [...] | | | L | | | BREAKER MACHINE OPERATOR | | | , MD 2 | [...] + + | [facility] | [address] | [place], [place] | [phone] | | HOSPITAL LABORATORY | | [address] | | + + + + + [...] + + | [facility] | [address] | [place] | [phone] | | HOSPITAL LABORATORY | | [address] | | + + + + + [...] | | HOSPITAL | | | | Antipyretic/Eirpslxnk54. | | LABORATORY | | | | [...] + + | [facility] | [address] | [place] | [phone] | | HOSPITAL LABORATORY | | [address] | | + + + + + [...] + + | [facility] RON[facility] | [address] | [place] | [phone] | | HOSPITAL LABORATORY | | [address] | | + + + + + [...] | mL/min/1.73m2 | [facility] | | | BANGLADESHI | RATE,ESTIMATED | | HOSPITAL | | | | mL/min/1.89o0Dlqn than | | LABORATORY | | | [...] + + | [facility] | [address] | [place] | [phone] | | HOSPITAL LABORATORY | | [address] | | + + + + + [...] + + | [facility] RONBRAND[facility] | [address] | [place] | [phone] | | HOSPITAL LABORATORY | | [address] | | + + + + + [...] + + | [facility] | [address] | [place] | [phone] | | HOSPITAL LABORATORY | | [address] | | + + + + + [...] - 1.030 | JES[facility] | | | [place], | | | RON[facility] | | | [...] + + | [facility] | [address] | [place], [place] | [phone] | | HOSPITAL LABORATORY | | [address] | | + + + + + [...] the attending | LABORATORY | | physician. Acwn-adz-bskhetz drugs may cross react with some methods. [...] + + | [facility] | [address] | [place] | [phone] | | HOSPITAL LABORATORY | | [address] | | + + + + + [...]
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
--- OUTSIDE RECORDS SUMMARY | ~2020-03-05 | XMS | Encounter Summary ---
Demographics + + + | Address | [address] | | | [place] [address] | + + + | Home Phone | | + + + | Preferred Language | Unknown | + + + | Marital Status | Single | + + + | Yazidism Affiliation | NON | + + + [...] Providers + +------+ + | Care Nuclear Plant Technical Advisor Name | Role | Phone | [...] | | 2016 | Encounter | at [facility] [address] | [address] | | | | | Ave Mailcode: CH7C | [facility] [address] [facility] | | | | | [facility] | [place] [address] | | | | | and Healing, | [phone] | | | | | [facility] | | | | | | Floor [place], [place] | | | | | | [address] | | | | | | [phone] | | | +--------+ + + + [...]
--- OUTSIDE RECORDS SUMMARY | ~2020-03-05 | XMS | Encounter Summary ---
Demographics + + + | Address | [address] | | | [place] [address] | + + + | Home Phone [...] Team Providers + +------+ + | Care Traffic Control Officer Name | Role | Phone | + +------+ + | Concepción Gallardo NP | PCP | | + +------+ + Encounter Details +--------+ + + + + | Date | Type | Department | Care Team | Description | +--------+ + + + + | 08/05/ | Hospital | [facility] | Spenser, | Foraminal stenosis | | 2013 | Encounter | MED CTR XRAY [address] | [address] | of lumbar region - | | | | [place] | [address] | left L5-S1; Left | | | | [place] [address] | [place] [address] | lumbar | | | | [phone] | radiculopathy; DDD | | | | | | (degenerative disc | | | | | Monotypist, Ws | disease), lumbar; | | | | | [place] | Facet arthritis of | | | [...] [place] | | | | | | [address] | | | | | | | | +--------+---------+ + + + | 04/03/ | Office | Cardiology | Zuleyka Castillo DO | | | 2019 | Visit | | [address] | | | | | | [place] | | | | | | [id number] | | | | | | | [...] 08/05/2014 Transforaminal Epidural Steroid Injection Diagnosis: | [facility] | | Lumbar radiculopathy ICD-9 Code 724.4 Kori Harshal | [facility] | | Joanne presents to the fluoroscopy suite for a [facility] | | fluoroscopically-guided left L5-S1 transforaminal epidural [...] ST. | [address] | [place], [place] | [phone] | | [facility] | | [address] | | | - IMAGING | | [...] | | | | | Other, ONCE, Tue08/05/14 at 1400, | | PM PDT | [...] | | | | | INTRATHECAL, ONCE, Tue08/05/14 at | | PM PDT | | [...]
--- OUTSIDE RECORDS SUMMARY | ~2020-03-05 | XMS | Encounter Summary ---
Demographics + + + | Address | [address] | | | [place] [address] | + + + | Home Phone [...] Team Providers + +------+ + | Care Screw Cutter Name | Role | Phone | [...] | | | | [place] | [place] [address] | [address] | | | | | Lumbar | Phone: | Phone: | | | | | radiculopath | [phone] | [phone] | | | | | y | Fax: | Fax: | | | | | Procedures | [phone] | [phone] | | | | | HIM 04/17/18 | | | +--------+ + + + + + Encounter Details +--------+ + + + + | Date | Type | Department | Care Team | Description | +--------+ + + + + | 04/12/ | Orders Only | [facility] | Nick Martinez, | Closed compression | | 2018 | | PHYSIATRY [address] | PA-C [address] | fracture of fifth | | | | [address] | [address] [place] | lumbar vertebra, | | | | [place], [place] | [place] [address] | sequela (Primary | | | | [address] | [phone] | Dx); Lumbar | | | | [phone] | | radiculopathy | +--------+ + + [...] [place] | | | | | | [address] | | | | | | | | +--------+---------+ + + + | 04/03/ | Office | Cardiology | Zuleyka Castillo DO | | 2019 | Visit | | [address] | | | | | | [place] | | | | | | [address] | | | | | | | | +--------+---------+ + + + + + +--------+ + + | Name | Type | Priori | Associated Diagnoses | Order Schedule | | | | ty | | | + + +--------+ + + | AMB REFERRAL TO [facility] | Outpatient | Routin | [...]
--- OUTSIDE RECORDS SUMMARY | ~2020-03-05 | XMS | Encounter Summary ---
Demographics + + + | Address | [address] | | | [place] [address] | + + + | Home Phone [...] Providers + +------+ + | Care Barrel Repairer Name | Role | Phone | + +------+ + | Concepción Gallardo NP | PCP | | + +------+ + Encounter Details +--------+ + + + + | Date | Type | Department | Care Team | Description | +--------+ + + + + | 08/05/ | Hospital | [facility] | [place], | Foraminal stenosis | | 2013 | Encounter | MED CTR XRAY [address] | [address] | of lumbar region - | | | | [place] | [address] | left L5-S1; Left | | | | [place] [address] | [place] [address] | lumbar | | | | [phone] | [phone] | radiculopathy; DDD | | | | | | (degenerative disc | | | | | Event Specialist, Ws | disease), lumbar; | | | [...] [place] | | | | | | [address] | | | | | | | | +--------+---------+ + + + | 04/03/ | Office | Cardiology | Zuleyka Castillo DO | | | 2019 | Visit | | [address] | | | | | | [place] | | | | | | [address] | | | | | | | [...] ICD-9 Code 724.4 Kori Harshal | [facility] | | Joanne presents to the fluoroscopy suite for a [facility] | | fluoroscopically-guided left L5-S1 transforaminal epidural [...] ST. | [address] | [place], [place] | [phone] | | [facility] | | [address] | | | - IMAGING | | [...]
--- OUTSIDE RECORDS SUMMARY | ~2020-03-05 | XMS | Encounter Summary ---
Demographics + + + | Address | [address] | | | [place] [address] | + + + | Home Phone [...] Providers + +------+ + | Care Warehouse Receiver Name | Role | Phone | + +------+ + | Romy De La Paz MD | PCP | | + +------+ + Encounter Details +--------+---------+ + + + | Date | Type | Department | Care Team | Description | +--------+---------+ + + + | 09/17/ | Office | [facility] | Denys Sibley G, | S/P insertion of | | 2018 | Visit | [facility] | DO [address] | spinal cord | | | | [address] [place], [place] | stimulator (Primary | | | | [address] [address] | [address] | Dx); Spinal stenosis | | | | [place], [place] | | of lumbosacral | | | | [address] | | region; Lumbar | | | | [phone] | | region somatic | | | [...] anterior chest wall ever y 72 hours. [place] 10/325 1 p.o. every 6 hours as [...] including but not limited to physical therapy, hospice patient care secretary, acupuncture, massage therapy, and nutritional healt h [...] general activity) Total score: (Printable questionnaires in [place] ) Interpretation of Total Score: PEG scores are used to track changes over time. It should de crease after therapy has begun. Last 4 PEG Scores: No flowsheet data found. Opioid Risk Tool (ORT): Total Score Pulse: 78 Resp: 16 BP: 102/52 SpO2: 98 % (From Chronic Pain tab; printable questionnaires in [place]) Interpretation of Total Score: 0 to 3 [...] Date Acid reflux disease Acute renal failure ([facility]) April 2013 Adverse effect of anesthesia hx hallucinations after anesthesia x 3 yrs ago. Anesthesia hallucinated after bladder repair Arthralgia Arthritis Asthma Asthma Back pain Cancer ([facility]) 2004 breast Cataract Cerebrovascular accident (CVA) ([facility]) no per pt Chronic back pain Chronic back pain Chronic constipation Concussion 07/2015 Preceeded by seizure Constipation COPD (chronic obstructive pulmonary disease) ([facility]) Degenerative disc disease Depression Depression Diabetes mellitus ([facility]) Diabetes mellitus, type 2 ([facility]) diet controlled Diabetes type 2, controlled ([facility]) diet controlled Diarrhea Disorder of [...] Scoliosis Scoliosis of lumbar spine 04/17/2014 Seizure ([facility]) one due to meds, two [...] Arthralgia Arthritis Asthma Asthma Back pain Cancer ([facility]) 2004 breast Cataract Cerebrovascular accident (CVA) ([facility]) no per pt Chronic back pain Chronic back pain Chronic constipation Concussion 07/2015 Preceeded by seizure Constipation COPD (chronic obstructive pulmonary disease) ([facility]) Degenerative disc disease Depression Depression Diabetes mellitus (HCC) Diabetes mellitus, type 2 (HCC) diet controlled Diabetes type 2, controlled ([facility]) diet controlled Diarrhea Disorder of [...] reviewed, listed controlled substances are consistent with [facility] prescriptions and patient reported use. [...] than left and will follow up with study specialist I believe regarding the shoulder pain [...] imited to physical therapy, massage therapy, acupuncture, hospice patient care secretary, along with niki mmended psychological counseling, either [...] are noted in men and women. [place] men will suffer erectile dysfunction with these [...] weeks. This document has been created using Street[employer] Voice Recognition software and Anxa. The entry has been reviewed for content and accuracy, but there may still exist "sound alike" stamping press operator word errors and/or unintended additions and [...] [place] | | | | | | [address] | | | | | | | | +--------+---------+ + + + | 04/03/ | Office | Cardiology | Zuleyka Castillo DO | | | 2019 | Visit | | [address] | | | | | | [place] | | | | | | [address] | | | | | | | [...]
--- OUTSIDE RECORDS SUMMARY | ~2020-03-05 | XMS | Encounter Summary ---
Demographics + + + | Address | [address] | | | [place] [address] | + + + | Home Phone [...] Team Providers + +------+ + | Care Sewing Machine Operator Semiautomatic Name | Role | Phone | + +------+ + PCP | Unavailable | + +------+ + Encounter Details +--------+ + + + + | Date | Type | Department | Care Team | Description | +--------+ + + + + | 09/22/ | Hospital | [facility] | Shay Dietz | | | 2010 | Encounter | MED CTR XRAY [address] | [address] | | | | | [place] | ST [place], [place] | | | | | [place] [address] | [address] | | | | | [phone] | | | +--------+ + + + [...] [place] | | | | | | [address] | | | | | | | | +--------+---------+ + + + | 04/03/ | Office | Cardiology | Zuleyka Castillo DO | | | 2019 | Visit | | [address] | | | | | | [place] | | | | | | [address] | | | | | | | [...] Performed At | + + + | [facility] Diagnostic Imaging Department | [facility] | | [address] [facility] | [facility] | | LUMBAR FACET INJECTIONS, | DIAG [...] Transcribed Date/Time: | | | 09/22/2011 18:07 Command Post Superintendent: <Electronically Signed | | | by Shay Dietz MD> 09/27/11 1035 | | + + + + + | Procedure Note | + + | Junior, Rad Conversion - 12/07/2013 4:17 PM [facility] | | Diagnostic Imaging Department [address] [place] [address] | | LUMBAR FACET INJECTIONS, 09/22/2011 CLINICAL HISTORY: | | ICD-9 CODE 721.3, LUMBAR SPONDYLOSIS. Ms. Kori Mendezonel presents to the | | fluoroscopy suite [...] 17:09 | |Transcribed Date/Time: 09/22/2011 18:07 | |Command Post Superintendent: | |<Electronically Signed by Shay Dietz MD> [...]
--- OUTSIDE RECORDS SUMMARY | ~2020-03-05 | XMS | Encounter Summary ---
Demographics + + + | Address | [address] | | | [place] [address] | + + + | Home Phone [...] Providers + +------+ + | Care Memorial Designer Name | Role | Phone | [...] | | 2016 | Encounter | at [facility] [address] | [address] | test results | | | | Ave Mailcode: CH7C | [facility] [address], | | | | | [facility] | [place] [address] | | | | | and Healing, | [phone] | | | | | [facility] | | | | | | Floor [place], [place] | | | | | | [address] | | | | | | [phone] | | | +--------+ + + + [...]
--- OUTSIDE RECORDS SUMMARY | ~2020-03-05 | XMS | Encounter Summary ---
Demographics + + + | Address | [address] | | | [place] [address] | + + + | Home Phone [...] Providers + +------+ + | Care Commercial Review Appraiser Name | Role | Phone | + +------+ + | Romy De La Paz MD | PCP | | + +------+ + Reason for Visit + + + | Reason | Comments | + + + | Post-op Exam | | + + + Encounter Details +--------+---------+ + + + | Date | Type | Department | Care Team | Description | +--------+---------+ + + + | 08/16/ | Office | [facility] | Gabi Guzman | S/P insertion of | | 2019 | Visit | [facility] | [address] | spinal cord | | | | ORTHOPEDIC SPINE | [address] | stimulator (Primary | | | | [address] | [place] [address] | Dx); DDD | | | | [place], [place] | [phone] | (degenerative disc | | | | [address] | | disease), lumbar; | | | | [phone] | | Facet arthritis of | | [...] + + + | Blood Pressure | 100/66 | 08/16/2019 1:38 PM | | | | | PDT | | + + + + + | Pulse | 80 | 08/16/2019 1:38 PM | | | | | [...] Weight | 50.3 kg (111 lb) | 08/16/2019 1:38 PM | | | | | PDT | | + + + + + | Height | 154.9 cm (5' 1") | 08/16/2019 1:38 PM | | | | | PDT | | + + + + + | Body Mass Index | 20.97 | 08/16/2019 1:38 PM | | | | | PDT | | + + + + + documented in this encounter Patient Instructions Patient Instructions Gabi Guzman ARNP - 08/16/2019 1:40 PM PDT Continue to inc rease activity level Be reminded of your limitations, use proper body mechanics to avoid any flare ups Ice therapy especially after activities OTC medication as indicated for minor aches and pain Follow up as needed 1:4 1 PM PDT documented in this encounter Progress Notes Gabi Guzman ARNP - 08/16/2019 1:40 PM PDTFormatting of this note might be differ ent from the original. Subjective: Chief Complaint: S/P T9-T10 laminectomy and decompression with T8 placement of spinal cord stimulator paddle, right flank battery pack insertion performed on August 03, 2019 Patient ID: Kori LeighFawthrradha is a 74 y.o. female who returns to the clinic today , accompanied by her friend, and the [employer] public utilities sales representative for the spinal cord stimulator, f or a 2 week post-op visit, following the T9-10 laminectomy for T8 placement of the spinal co rd stimulator paddle and right flank battery pack insertion, performed August 03, 2019. The [employer] agent has just programmed her device, currently still reporting a pain level of 9/10 on pain scale, predominantly to the incision area and right upper extremity; describing her symptoms as an alternating, sharp, dull, aching sensation; aggravated with change in positio n; improved with rest and use of her opioid medicine; down to 6/10 on pain scale. Patient's current medication regimen is managed by Dr. Denys Sibley. Patient denies any bladder or eugenio wel dysfunction associated with her symptoms. Review of Systems Constitutional: Positive for chills and fever. Negative for activity change, appetite knight e, fatigue and unexpected weight change. HENT: Negative for congestion, drooling, ear pain, facial swelling, hearing loss, sinus pre ssure, sinus pain, sore throat, tinnitus and trouble swallowing. Eyes: Negative for discharge, redness, itching and visual disturbance. Respiratory: Negative for apnea, cough, choking, chest tightness, shortness of breath and w heezing. Cardiovascular: Negative for chest pain, palpitations and leg swelling. Gastrointestinal: Positive for constipation. Negative for abdominal distention, abdominal p ain, anal bleeding, blood in stool, diarrhea, nausea, rectal pain and vomiting. Endocrine: Negative for cold intolerance, heat intolerance and polyuria. Genitourinary: Positive for frequency and urgency. Negative for decreased urine volume, dif ficulty urinating, flank pain, menstrual problem, pelvic pain and vaginal pain. Musculoskeletal: Positive for myalgias. Negative for arthralgias, back pain, gait problem, joint swelling, neck pain and neck stiffness. Skin: Negative for rash and wound. Allergic/Immunologic: Negative for environmental allergies and food allergies. Neurological: Negative for dizziness, tremors, speech difficulty, weakness, light-headednes s, numbness and headaches. Hematological: Does not bruise/bleed easily. Psychiatric/Behavioral: Positive for confusion and sleep disturbance. Negative for agitatio n, behavioral problems, decreased concentration, dysphoric mood, hallucinations and suicidal ideas. The patient is not nervous/anxious and is not hyperactive. Social History Socioeconomic History Marital status: Spouse name: Not on file Number of children: 3 Years of education: 14 Highest education level: Not on file Social Needs Financial resource strain: Not on file Food insecurity - worry: Not on file Food insecurity - inability: Not on file Transportation needs - medical: Not on file Transportation needs - non-medical: Not on file Occupational History Occupation: [employer] Tobacco Use Smoking status: Never Smoker Smokeless tobacco: Never Used Substance and Sexual Activity Alcohol use: Yes Comment: Alcoholic Drinks/day: not often..twice per year Drug use: No Comment: Drug use: No Sexual activity: Never Other Topics Concern Not on file Social History Narrative Not on file Past Surgical History: Procedure Laterality Date ANKLE FRACTURE SURGERY Left 2011 BLADDER SUSPENSION BREAST SURGERY LUMPECTOMY BREAST SURGERY Left 1996 CARDIAC CATHERIZATION 2015 no stents SECTION 1974 SECTION CHOLECYSTECTOMY 1998 SAH CHOLECYSTECTOMY COLONOSCOPY 2009 COLONOSCOPY CYSTOCELE REPAIR FIXATION KYPHOPLASTY 06/13/2018 Procedure: KYPHOPLASTY; Surgeon: Alfredo Casillas DO; Location: [facility]; Service: Pa in Management; Laterality: N/A; L5 FRACTURE SURGERY ANKLE HERNIA REPAIR HYSTERECTOMY HYSTERECTOMY LAMINECTOMY N/A 08/03/2019 Procedure: LAMINOTOMY THORACIC / LUMBAR W/ PLACEMENT SPINAL CORD STIMULATOR; Surgeon: Suly Hutchins MD; [place] [facility] [place] OTHER SURGICAL HISTORY EPIDURAL STEROID INJECTION OTHER SURGICAL HISTORY 08/28/2018 EPIDURAL STEROID INJECTION - LESI L4-L5 OTHER SURGICAL HISTORY 09/11/2018 EPIDURAL STEROID INJECTION - LESI L5-S1 OTHER SURGICAL HISTORY UNLISTED PROCEDURE ARTHROSCOPY SLING REMOVAL , BLADDER 2006 TUBAL LIGATION UPPER GASTROINTESTINAL ENDOSCOPY Past Medical History: Diagnosis Date Acid reflux disease Acute renal failure ([facility]) April 2013 Adverse effect of anesthesia hx hallucinations after anesthesia x 3 yrs ago. Anesthesia hallucinated after bladder repair Arthralgia Arthritis Asthma Asthma Back pain Cancer ([facility]) 2005 breast Cataract Cerebrovascular accident (CVA) ([facility]) no per pt Chronic back pain Chronic back pain Chronic constipation Concussion 07/2015 Preceeded by seizure Constipation COPD (chronic obstructive pulmonary disease) ([facility]) Degenerative disc disease Depression Depression Diabetes mellitus ([facility]) Diabetes mellitus, type 2 ([facility]) diet controlled Diabetes type 2, controlled ([facility]) [...] ambulatory aid Patient Active Problem List Diagnosis SACROILIITIS BURSITIS, HIP DISC DISEASE, LUMBAR BACK PAIN, LUMBAR OSTEOARTHRITIS, LUMBOSACRAL SPINE COUGH VARIANT ASTHMA Chronic diarrhea ESOPHAGEAL REFLUX GASTROPARESIS GENERALIZED ANXIETY DISORDER NAUSEA WITH VOMITING RESTLESS LEG SYNDROME HYPOGLYCEMIA INSOMNIA DUE TO MENTAL DISORDER Depression, major, recurrent - with multiple prior suicide attempts LUMBAR STRAIN DDD (degenerative disc disease), lumbar ORGANIC INSOMNIA UNSPECIFIED Left lumbar radiculopathy Acute renal failure Chronic low back pain Facet arthritis of lumbar region 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 Scoliosis of lumbar spine Cervical radiculopathy Myelopathy Right lumbar radiculopathy Acute alcoholic intoxication Acute respiratory failure Anemia, unspecified Anxiety state Aspiration pneumonia Chronic pain disorder Closed compression fracture of L5 vertebra Coma COPD (chronic obstructive pulmonary disease) Degenerative lumbar spinal stenosis Depression with suicidal ideation Encounter for long-term use of opiate analgesic Gait difficulty History of oral aphthous ulcers Hypotension, unspecified Hypothyroid Impaired mobility and ADLs Intervertebral disc disorders with radiculopathy, lumbosacral region Metabolic acidosis Other shock Overdose of muscle relaxant Palpitations Peripheral vertigo PPS (pelvic pain syndrome) Recurrent UTI Spondylosis without myelopathy or radiculopathy, cervical region Spondylosis without myelopathy or radiculopathy, lumbosacral region Chest pain Chronic bilateral low back pain without sciatica Chronic low back pain with sciatica Intractable back pain Lumbar region somatic dysfunction Low back ache Strain of lumbar region Spinal stenosis of lumbosacral region S/P insertion of spinal cord stimulator Current Outpatient Medications: ALBUTEROL IN, Inhale into [...] mouth every 6 hours as needed for Pain., Disp: 60 tablet, Rfl: 0 HYDROcodone-acetaminophen (NORCO) 7.5-325 mg per [...] Has had twice since, with no problems. Objective: BP 100/66 | Pulse 80 | Ht 1.549 m (5' 1") | Wt 50.3 kg (111 lb) | LMP (LMP Unknown) | BMI 20.97 kg/m Physical Exam General: Well nourished, well developed female. Skin: Incisions to the midline thoracic and right flank are clean, dry, and intact with mi nimal swelling. No erythema or dehiscence. HEENT: NC/AT Respiratory: Normal excursion Lumbar: With moderate limitation to range of motion, consistent with recent surgery, sligh tly forward biased antalgic gait. Motor: 4/5 right lower extremity globally, 5-/5 left lower extremity globally. Sensory: Sensation is diminished on the right following the L4 and L5 dermatomal distribut ion, otherwise intact to the rest of the bilateral lower extremities. Assessment and Plan: 1. S/P insertion of spinal cord stimulator 2. DDD (degenerative disc disease), lumbar 3. Facet arthritis of lumbar region Ms. Arnaldo-Neriwtjanene is progressing appropriately following the surgical procedure. Patient is encouraged to continue to increase her activity level, again reminding her of he r activity restrictions and use of proper body mechanics to avoid any exacerbation of sympto ms. Ice therapy as indicated, especially after activity. Home health physical therapy is com ing to her home at least three times weekly for her sessions. The patient will continue to follow up with Dr. Denys Sibley for her opioid medication man agement and encouraging the patient to continue to taper down on her opioid use as symptoms continue to improve. The patient will follow up with Dr. Alfredo Casillas in 4 to 6 weeks. Barring any changes, we will follow up with the patient on a PRN basis for any concerns. A ll questions and concerns with regards to the patient's condition were discussed and answere d and patient verbalized understanding and has agreed with treatment plan. Documented by Cb. documented in this encounter Plan of Treatment +--------+---------+ + + + | Date | Type | Specialty | Care Team | Description | +--------+---------+ + + + | 03/17/ | Office | Pain Medicine | Denys Sibley, | | | 2019 | Visit | | DO [address] | | | | | | [place] | | | | | | [id number] | | | | | | | | +--------+---------+ + + + | 04/03/ | Office | Cardiology | Zuleyka Castillo DO | | | 2019 | Visit | | [address] | | | | | | [place] | | | | | | [id number] | | | | | | | | +--------+---------+ + + + documented as of this encounter Procedures + +--------+ + + + | Procedure Name | Priori | Date/Time | Associated Diagnosis | Comments | | | ty | | | | + +--------+ + + + | LABS - EXTERNAL SCAN | | 07/18/2019 | | Results for this | | | | 12:00 AM | | procedure are in the | | | | PDT | | results section. | + +--------+ + + + | IMAGING REPORT - | | 07/09/2019 | | Results for this | | EXTERNAL SCAN | | 12:00 AM | | procedure are in the | | | | PDT | | results section. | + +--------+ + + + | IMAGING REPORT - | | 07/09/2019 | | Results for this | | EXTERNAL SCAN | | 12:00 AM | | procedure are in the | | | | PDT | | results section. | + +--------+ + + + documented in this encounter Results LABS - EXTERNAL SCAN (07/18/2019 12:00 AM PDT) + + + | Narrative | Performed At | + + + | Ordered by an | | | unspecified provider. | | + + + IMAGING REPORT - EXTERNAL SCAN (07/09/2019 12:00 AM PDT) + + + | Narrative | Performed At | + + + | Ordered by an | | | unspecified provider. | | + + + IMAGING REPORT - EXTERNAL SCAN (07/09/2019 12:00 AM PDT) + + + | Narrative | Performed At | + + + | Ordered by an | | | unspecified provider. | | + + + documented in this encounter Visit Diagnoses + + | Diagnosis | + + | S/P insertion of spinal cord stimulator - Primary | + + | DDD (degenerative disc disease), lumbar Degeneration of lumbar or lumbosacral | | intervertebral disc | + + | Facet arthritis of lumbar region Lumbosacral spondylosis without myelopathy | + + documented in this encounter
--- OUTSIDE RECORDS SUMMARY | ~2020-03-05 | XMS | Encounter Summary ---
Demographics + + + | Address | [address] | | | [place] [address] | + + + | Home Phone [...] Team Providers + +------+ + | Care Photocopying Equipment Mechanic Name | Role | Phone | + +------+ + | Wendi Aiken | PCP | | + +------+ + Encounter Details +--------+ + + + + | Date | Type | Department | Care Team | Description | +--------+ + + + + | 04/07/ | Imaging | [facility] | Provider, | | | 2018 | Exam | MED CTR EXTERNAL | [address] | | | | | IMAGING [address] | [address] | | | | | [facility] | [place] [address] | | | | | [place] [address] | | | | | | [phone] | | | +--------+ + + + [...] [place] | | | | | | [id number] | | | | | | | | +--------+---------+ + + + | 04/03/ | Office | Cardiology | Zuleyka Castillo DO | | | 2019 | Visit | | [address] | | | | | | [place] | | | | | | [address] | | | | | | | [...]
--- OUTSIDE RECORDS SUMMARY | ~2020-03-05 | XMS | Encounter Summary ---
Demographics + + + | Address | [address] | | | [place] [address] | + + + | Home Phone [...] Team Providers + +------+ + | Care Carboy Filler Name | Role | Phone | + [...] | | | [place], [place] | [address] | | | | | [address] | | | | | | [phone] | | | +--------+ + + + [...] [place] | | | | | | [phone] | | | | | | | | +--------+---------+ + + + | 04/03/ | Office | Cardiology | Zuleyka Castillo DO | | | 2019 | Visit | | [address] | | | | | | [place] | | | | | | [phone] | | | | | | | | +--------+---------+ + + + documented as of this encounter Visit Diagnoses Not on filedocumented in this encounter"
--- OUTSIDE RECORDS SUMMARY | ~2020-03-05 | XMS | Encounter Summary ---
Demographics + + + | Address | [address] | | | [place] [address] | + + + | Home Phone | | + + + | Preferred Language | Unknown | + + + | Marital Status | Single | + + + | Denominational Affiliation | NON | + + + [...] Team Providers + +------+ + | Care Crap Game Box Person Name | Role | Phone | + +------+ + | Miquel Calhoun MD | PCP | | + +------+ + Encounter Details +--------+ + + + + | Date | Type | Department | Care Team | Description | +--------+ + + + + | 11/12/ | Telephone | [facility] | Khushbu Cortez, | | | 2013 | | [facility] | [place], [place] | | | | | [address] | [address] | | | | | [address] | | | | | | [place], [address] [place] [address] | | | | | | [place], [place] | | | | | | [address] | | | | | | [phone] | | | +--------+ + + + [...]
--- OUTSIDE RECORDS SUMMARY | ~2020-03-05 | XMS | Encounter Summary ---
Demographics + + + | Address | [address] | | | [place] [address] | + + + | Home Phone [...] Team Providers + +------+ + | Care Doll Wigs Hackler Name | Role | Phone | + +------+ + | Miquel Calhoun MD | PCP | | + +------+ + Encounter Details +--------+ + + + + | Date | Type | Department | Care Team | Description | +--------+ + + + + | 09/13/ | Telephone | [facility] | Khushbu Cortez, | | | 2012 | | [facility] | [place], [place] | | | | | [address] | [address] | | | | | [address] | | | | | | [place], [address] [place] [address] | | | | | | [place], [place] | | | | | | [address] | | | | | | [phone] | | | +--------+ + + + [...]
--- OUTSIDE RECORDS SUMMARY | ~2020-03-05 | XMS | Encounter Summary ---
Demographics + + + | Address | [address] | | | [place] [address] | + + + | Home Phone [...] Providers + +------+ + | Care Acid Bleacher Name | Role | Phone | + +------+ + | Wendi Aiken | PCP | | + +------+ + Encounter Details +--------+ + + + + | Date | Type | Department | Care Team | Description | +--------+ + + + + | 04/06/ | Hospital | [facility] | JuanNick, | Lumbar radiculopathy | | 2018 | Encounter | MED CTR XRAY [address] | PA-C [address] | | | | | [place] | [address] [place] | | | | | [place] [address] | [place] [address] | | | | | [phone] | [phone] | | | | | | | | | | | | Complaint Clerk, [facility] | | | | | | [...] [place] | | | | | | [address] | | | | | | | | +--------+---------+ + + + | 04/03/ | Office | Cardiology | Zuleyka Castillo DO | | | 2019 | Visit | | [address] | | | | | | [place] | | | | | | [address] | | | | | | | [...] 1:20 | | | | | ONCE, [facility] 04/06/18 at 1330, For 1 | | [...] | | | | | Other, ONCE, [facility] 04/06/18 at 1330, | | PM PDT | | | | | For 1 dose | | | | | | + +-------+ +-------+---+---+ +---+---+ | | | +---+---+ + +-------+ +-------+---+---+ | lidocaine (PF) 1% injection 2 | Given | 04/06/20 | 2 mLs | | | | mL 2 mL, Other, ONCE, [facility] 04/06/18 | | 18 1:20 | | [...] | | (Comment | | Intradermal, ONCE, [facility] 04/06/18 at | | PM PDT | | | ) | | 1330, For 1 dose | | | | | | + +-------+ +-------+---+ + +---+---+ | | | +---+---+ documented in this encounter"
--- OUTSIDE RECORDS SUMMARY | ~2020-03-05 | XMS | Encounter Summary ---
Demographics + + + | Address | [address] | | | [place] [address] | + + + | Home Phone [...] Author + + + | Author | [facility] | + + + | Organization | [facility] | + + + | Address | Unknown | + + + | Phone | Unavailable | + + + Support + + +---------+ + | Name | Relationship | Address | Phone | + + +---------+ + | Royce Menchaca | ECON | Unknown | | + + +---------+ + Care Team Providers + +------+ + | Care Costume Mistress Name | Role | Phone | + [...] | Chest | Referring | [place] [address] | | | | | pressure | Provider Per | [address] | | | | | Procedures | Patient NO | [address] | | | | | [place] NEW | REFERRING | [place], [place] | | | | | PATIENT | PROVIDER PER | [address] Phone: | | | | | LEVEL V [place] | PT | [phone] | | | | | OFFICE/OUTPT | | Fax: | | | | | | | [phone] | | | | | VISIT,EST,LE | [...] | | 2016 | Visit | at [facility] [address] | [address] | unspecified type | | | | Ave Mailcode: CH7C | [address] [facility], | (Primary Dx); | | | | [facility] | [place] [address] | Palpitations | | | | and Healing, | [phone] | | | | | [facility] | | | | | | Floor [place], [place] | | | | | | [address] | | | | | | [phone] | | | +--------+---------+ + + + [...] per Dr. Fuchs's note. Tiago Blake DO Mining Engineer Clinical electrical and instrumentation manager/ Division of Cardiovascular Medicine Airam Nicole Md - 03/09/2016 3:27 PM PDT [facility] General Cardiology New Patient Evaluation Patient [...] ED. She was then transf erred to [facility] in [facility] where she was put into the [...] every couple of weeks. She comes to [facility] today because she wants a second opinion [...] | + + + + + | [facility] | [address] | [place], [place] | | | | [address] | [address] | | + + + + + documented in this encounter Visit Diagnoses + + | Diagnosis | + + | Chest pain, unspecified type - Primary | + + | Palpitations | + + documented in this encounter
--- OUTSIDE RECORDS SUMMARY | ~2020-03-05 | XMS | Encounter Summary ---
Demographics + + + | Address | [address] | | | [place] [address] | + + + | Home Phone [...] Team Providers + +------+ + | Care Linoleum Tile Layer Name | Role | Phone | [...] | | | [place], [place] | [address] | | | | | [address] | | | | | | [phone] | | | +--------+ + + + [...] [place] | | | | | | [address] | | | | | | | | +--------+---------+ + + + | 04/03/ | Office | Cardiology | Zuleyka Castillo DO | | 2019 | Visit | | [address] | | | | | | [place] [facility] [place] | | | | | | [address] | | | | | | | | +--------+---------+ + + + documented as of this encounter Visit Diagnoses Not on filedocumented in this encounter"
--- OUTSIDE RECORDS SUMMARY | ~2020-03-05 | XMS | Encounter Summary ---
Demographics + + + | Address | [address] | | | [place] [address] | + + + | Home Phone [...] Team Providers + +------+ + | Care Triage Rn Name | Role | Phone | + +------+ + | Wendi Aiken | PCP | | + +------+ + Encounter Details +--------+ + + + + | Date | Type | Department | Care Team | Description | +--------+ + + + + | 05/21/ | Orders Only | [facility] | Provider, | | | 2019 | | SYSTEM GENERIC OP | [address] | | | | | [address] | [address] | | | | | [address] [place], [place] | [place] [address] | | | | | [address] | | | | | | [phone] | | | +--------+ + + + [...] [place] | | | | | | [address] | | | | | | | | +--------+---------+ + + + | 04/03/ | Office | Cardiology | Zuleyka Castillo DO | | 2019 | Visit | | [address] | | | | | | [place] | | | | | | [address] | | | | | | | | +--------+---------+ + + + documented as of this encounter Visit Diagnoses Not on filedocumented in this encounter"
--- OUTSIDE RECORDS SUMMARY | ~2020-03-05 | XMS | Encounter Summary ---
Demographics + + + | Address | [address] | | | [place] [address] | + + + | Home Phone [...] Providers + +------+ + | Care Senior Search Marketing Analyst Name | Role | Phone [...] [place], [place] | | | | | [place], [place] | [address] | | | | | [address] | | | | | | [phone] | | | +--------+ + + + [...] [place] | | | | | | [address] | | | | | | | | +--------+---------+ + + + | 04/03/ | Office | Cardiology | Zuleyka Castillo DO | | 2019 | Visit | | [address] | | | | | | [place] [facility] [place] | | | | | | [address] | | | | | | | [...] 0.88 m/s MV | | | Dec Wallace: 3.57 m/s2 MV DecT: 230.60 ms MV E Mark: 0.82 m/s | | | MV E/A Ratio: 0.93 MV PHT: 66.87 ms MVA By PHT: 3.28 cm2 | | | Septal e': 0.05 m/s Septal E/e': 15.05 Lateral e': 0.08 m/s | | | Lateral E/e': 9.70 RAP: 5 mmHg Regional Office Coordinator: | | | Authenticated by: [facility] Report Date/Time: -- | | | [id number]:11:24 | | + + + + + | Procedure Note | + + | Junior, Rad Conversion - 06/21/2019 4:00 PM PDT Patient Name: CARRIE, | | SHILOate of : 1945 Performing Physician: Nena | | [facility] INDICATIONS------ | | -----tia/stroke CONCLUSIONS 1. This [...] cmLVPWd: 0.73 cmLVOT Area: 3.03 | | [id number] Diam: 1.96 cm%FS: 33.05 %EF(Teich): 62.03 %ESV(Teich): 29.33 mlLVIDs: | | 2.79 cmSV(Teich): 47.94 mlRVIDd: 2.59 cmLAESV(A-L): 41.85 mlLAESV Index (A-L): | | 26.32 ml/m2LAAs A2C: 12.87 cs0GBSZX A-L A2C: 32.77 mlLALs A2C: 4.29 cmLAAs A4C: | | 16.44 he0UGHUH A-L A4C: 50.32 mlLALs A4C: 4.55 cmAV maxP.92 mmHgAV meanPG: | | 4.38 mmHgAV Vmax: 1.40 m/Tisha Vmean: 0.99 m/Tisha VTI: 32.81 cmAVA Vmax: 2.11 | | cm2AVA (VTI): 2.40 on3HHPX (Vmax): 0.00 cm2/m2AVAI (VTI): 0.00 cm2/m2LVOT maxPG: | | 3.84 mmHgLVOT meanP.47 mmHgLVSI Dopp: 49.70 ml/m2LVSV Dopp: 79.02 mlLVOT | | Vmax: 0.98 m/sLVOT Vmean: 0.75 m/sLVOT VTI: 26.05 cmMV A Mark: 0.88 m/sMV Dec | | Wallace: 3.57 m/s2MV DecT: 230.60 msMV E Mark: 0.82 m/sMV E/A Ratio: 0.93MV PHT: | | 66.87 msMVA By PHT: 3.28 dy8Zsiszh e': 0.05 m/sSeptal E/e': 15.05Lateral e': | | 0.08 m/sLateral E/e': 9.70RAP: 5 mmHg Regional Office Coordinator:Authenticated by: Nena | | [facility] Date/Time: -- [id number]:11:24 IMPRESSION: 1. This was a technically | [...] A Mark: 0.88 m/s | |MV Dec Wallace: 3.57 m/s2 | |MV DecT: 230.60 ms | |MV E Mark: 0.82 m/s | |MV E/A Ratio: 0.93 | |MV PHT: 66.87 ms | |MVA By PHT: 3.28 cm2 | |Septal e': 0.05 m/s | |Septal E/e': 15.05 | |Lateral e': 0.08 m/s | |Lateral E/e': 9.70 | |RAP: 5 mmHg | | | |Regional Office Coordinator: | |Authenticated by: Nena Franco | |Report Date/Time: -- [id number]:11:24 | | | |IMPRESSION: | |1. This [...]
--- OUTSIDE RECORDS SUMMARY | ~2020-03-05 | XMS | Encounter Summary ---
Demographics + + + | Address | [address] | | | [place] [address] | + + + | Home Phone [...] Author + + + | Author | [facility] | + + + | Organization | [facility] | + + + | Address | Unknown | + + + | Phone | Unavailable | + + + Support + + +---------+ + | Name | Relationship | Address | Phone | + + +---------+ + | Royce Menchaca | ECON | Unknown | | + + +---------+ + Care Team Providers + +------+ + | Care Breakfast Host Name | Role | Phone | [...] | | 2016 | Encounter | at [facility] [address] | [address] | [place] | | | | Ave Mailcode: CH7C | [address] | | | | | [facility] | [place] [address] | | | | | and Healing, | [phone] | | | | | [place] [address] [facility] | | | | | | Floor [place], [place] | | | | | | [address] | | | | | | [phone] | | | +--------+ + + + [...]
--- OUTSIDE RECORDS SUMMARY | ~2020-03-05 | XMS | Encounter Summary ---
Demographics + + + | Address | [address] | | | [place] [address] | + + + | Home Phone [...] Team Providers + +------+ + | Care Geospatial Intelligence Analyst Name | Role | Phone | [...] | | spinal | [address] | [facility] | | | | | stenosis | B | [address] | | | | | | [place], [place] | Phone: | | | | | | [address] | [phone] | | | | | | Phone: | Fax: | | | | | | [phone] | [phone] | | | | | | Fax: | | | | | | | [phone] | | + +--------+ + + + + Encounter Details +--------+---------+ + + + | Date | Type | Department | Care Team | Description | +--------+---------+ + + + | 11/14/ | Office | [facility] | Denys Sibley, | S/P insertion of | | 2019 | Visit | [facility] | DO [address] | spinal cord | | | | [address] [place] | stimulator (Primary | | | | [address] | [address] | Dx); Spinal stenosis | | | | [place] | | of lumbosacral | | | | [address] | | region; Lumbar | | | | [phone] | | region somatic | | | [...] medication evaluation follow-up. Subjective: Chronic Pain:Current medication: Jayuya 10/325 1 p.o. every 4 hours as [...] including but not limited to physical therapy, customer care voice consultant, acupuncture, massage therapy, and nutritional healt h [...] Author Status Filed Medication Agreement Rupa Nye, Systems Administrator Active 11/14/2019 1:49 PM Pain Contract- Dr. Sibley 11/14/2019 PEG Pain screening tool (Pain, enjoyment, general activity) Total score: (Printable questionnaires in Sierra Leonean ) Interpretation of Total Score: PEG scores are used to track changes over time. It should de crease after therapy has begun. Last 4 PEG Scores: No flowsheet data found. Opioid Risk Tool (ORT): Total Score Pulse: 72 Resp: 16 BP: 99/58 SpO2: 99 % (From Chronic Pain tab; printable questionnaires in [place]an) Interpretation of Total Score: 0 to 3 [...] reflux disease Acute renal failure ([facility]) April 2013 Adverse effect of anesthesia hx hallucinations after anesthesia x 3 yrs ago. Anesthesia hallucinated after bladder repair Arthralgia Arthritis Asthma Asthma Back pain Cancer ([facility]) 2004 breast Cataract Cerebrovascular accident (CVA) ([facility]) no per pt Chronic back pain Chronic back pain Chronic constipation Concussion 07/2015 Preceeded by seizure Constipation COPD (chronic obstructive pulmonary disease) ([facility]) Degenerative disc disease Depression Depression Diabetes mellitus ([facility]) Diabetes mellitus, type 2 ([facility]) diet controlled Diabetes type 2, controlled ([facility]) diet controlled Diarrhea Disorder of [...] of lumbar spine 04/17/2014 Seizure ([facility]) one due to meds, two [...] reflux disease Acute renal failure ([facility]) April 2013 Adverse effect of anesthesia hx hallucinations after anesthesia x 3 yrs ago. Anesthesia hallucinated after bladder repair Arthralgia Arthritis Asthma Asthma Back pain Cancer ([facility]) 2004 breast Cataract Cerebrovascular accident (CVA) ([facility]) no per pt Chronic back pain Chronic back pain Chronic constipation Concussion 07/2015 Preceeded by seizure Constipation COPD (chronic obstructive pulmonary disease) ([facility]) Degenerative disc disease Depression Depression Diabetes mellitus ([facility]) Diabetes mellitus, type 2 ([facility]) diet controlled Diabetes type 2, controlled ([facility]) diet controlled Diarrhea Disorder of [...] of lumbar spine 04/17/2014 Seizure ([facility]) one due to meds, two [...] Procedure: KYPHOPLASTY; Surgeon: Alfredo Casillas DO; Location: [facility]; Service: Pa in Management; Laterality: N/A; L5 FRACTURE SURGERY ANKLE HERNIA REPAIR HYSTERECTOMY HYSTERECTOMY LAMINECTOMY N/A 08/03/2019 Procedure: LAMINOTOMY THORACIC / LUMBAR W/ PLACEMENT SPINAL CORD STIMULATOR; Surgeon: Suly Hutchins MD; Location[facility] [place] OTHER SURGICAL HISTORY EPIDURAL STEROID [...] reviewed, listed controlled substances are consistent with [facility] prescriptions and patient reported use. Controlled [...] = high risk) Daily Opioid Dose = Jayuya 10/325 1 p.o. every 4 hours. Daily [...] off the fentanyl patch. Continues with the Jayuya 10/325 1 p.o. every 4 h ours [...] imited to physical therapy, massage therapy, acupuncture, customer care voice consultant, along with niki mmended psychological counseling, either privately, or in group sessions offered by private care individuals, community services, or yarsanism organizations. Appropriate referrals were made [...] are noted in men and women. Ma in men will suffer erectile dysfunction with these [...] and complications with the passage of time. 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 Finally, these medicines are associated with both physical and emotional addiction and can be difficult to stop after taking for only a few weeks. This document has been created using Gendel Recognition software and Lat49. The entry has been reviewed for content and accuracy, but there may still exist "sound alike" human resources psychologist word errors and/or unintended additions and deletions. [...] [place] | | | | | | [id number] | | | | | | | | +--------+---------+ + + + | 04/03/ | Office | Cardiology | Zuleyka Castillo DO | | 2019 | Visit | | [address] | | | | | | [place] | | | | | | [id number] | | | | | | | [...]
--- OUTSIDE RECORDS SUMMARY | ~2020-03-05 | XMS | Encounter Summary ---
Demographics + + + | Address | [address] | | | [place] [address] | + + + | Home Phone [...] Providers + +------+ + | Care Senior Controls Analyst Name | Role | Phone | [...] + + | 04/25/ | Emergency | [facility] | Billy Romo, | Concussion, without | | 2016 | | HOSPITAL EMERGENCY | [address] | LOC, initial | | | | [place] [address] MEDICAL | [place], | encounter (Primary | | | | [employer], [place] | [place] [address] | Dx); Cervical | | | | [address] | [phone] | strain, acute, | | | | [phone] | | initial encounter | +--------+ + [...] sent through Care Everywhere.CERVICAL STRAIN , UNDERSTANDING (TANZANIAN)CONCUSSION, AFTER (TANZANIAN)CONCUSSION, COPING WITH (TANZANIAN)manish disla in this encounter Medications at Time [...] [place] | | | | | | [address] | | | | | | | | +--------+---------+ + + + | 04/03/ | Office | Cardiology | Zuleyka Castillo DO | | | 2019 | Visit | | [address] | | | | | | [place] | | | | | | [id number] | | | | | | | [...] L?MRN: | | | | | | [id number] | | | [id number] | | | his | | | [...] | | | St. | | | [place] | | | y H. | | [...] | | | St. | | | [place] | | | y | | | [...] | | | n, | | | BISCUIT PACKER, | | | BISCUIT PACKER | | | Primar | | | [...] Performed At | + + + | [address] | | | [place] [address] | | | NAME: KORI HARMON DATE: 04/25/2017 | | | : 1945 PT GENDER: F ROOM: ER PHYSICIAN: | | | BILLY ROMO PID#: [id number] CC TO: MR#: | | | PROCEDURE: [...] Rad Results In - 04/27/2017 9:10 AM [facility] | | [address] [facility] | | [place], [place] [address] | | | | | | NAME: KORI HARMON DATE: 04/25/2017 | | : 1945 PT GENDER: F ROOM: ER | | PHYSICIAN: BILLY ROMO PID#: [id number] | | CC TO: #: | | [...] Performed At | + + + | [address] | | | [place] [address] | | | NAME: KORI HARMON DATE: 04/25/2017 | | | : 1945 PT GENDER: F ROOM: ER PHYSICIAN: | | | BILLY ROMO PID#: [id number] CC TO: MR#: | | | PROCEDURE: [...] Reji Results In - 04/27/2017 9:10 AM [facility] | | [address] [facility] | | [place], [place] [address] | | | | | | NAME: KORI HARMON DATE: 04/25/2017 | | : 1945 PT GENDER: F ROOM: ER | | PHYSICIAN: BILLY ROMO PID#: [id number] | | CC TO: MR#: | | [...] | + + + + + | [facility] | [address] | [place], [place] | [phone] | | HOSPITAL LABORATORY | | [address] | | + + + + + [...] | | | FILTRATION | mL/min/1.73m2 | [facility] | | | [place] | RATE,ESTIMATED | | [facility] | | | | mL/min/1.29k0Usjo than | | LABORATORY | | | [...] 8.2 (L) | 8.3 - 10.0 | [facility] | | | | | mg/dL | COMMUNITY | | | | | | HOSPITAL | | | | | | LABORATORY | | + + + + + + | Albumin | 3.8 | 3.0 - 4.5 g/dL | [facility] | | | | | | COMMUNITY [...] | + + + + + | [facility] | [address] | [place], [place] | [phone] | | HOSPITAL LABORATORY | | [address] | | + + + + + [...] | + + + + + | [facility] | [address] | [place], [place] | [phone] | | HOSPITAL LABORATORY | | [address] | | + + + + + documented in this encounter Visit Diagnoses + + | Diagnosis | + + | Concussion, without LOC, initial encounter - Primary | + + | Cervical strain, acute, initial encounter | + + documented in this encounter
--- OUTSIDE RECORDS SUMMARY | ~2020-03-05 | XMS | Encounter Summary ---
Demographics + + + | Address | [address] | | | [place] [address] | + + + | Home Phone [...] Team Providers + +------+ + | Care Inspection Engineer Name | Role | Phone | + +------+ + | Miquel Calhoun MD | PCP | | + +------+ + Encounter Details +--------+ + + + + | Date | Type | Department | Care Team | Description | +--------+ + + + + | 11/29/ | Documentati | [facility] | Khushbu Cortez, | | | 2013 | on | [facility] | [address] [place], [place] | | | | | [address] | [address] | | | | | [address] | | | | | | Riddhi, [address] [place] [address] | | | | | | [place], [place] | | | | | | [address] | | | | | | [phone] | | | +--------+ + + + [...]
--- OUTSIDE RECORDS SUMMARY | ~2020-03-05 | XMS | Encounter Summary ---
Demographics + + + | Address | [address] | | | [place] [address] | + + + | Home Phone [...] Providers + +------+ + | Care Lead Nitrate Processor Name | Role | Phone | [...] [facility] [address] | [address] | [place] | | | | Ave Mailcode: CH7C | [address] | | | | | [facility] | [place] [address] | | | | | and Healing, | [phone] | | | | | [place] [address] [facility] | | | | | | Floor [place], [place] | | | | | | [address] | | | | | | [phone] | | | +--------+ + + + [...]
--- OUTSIDE RECORDS SUMMARY | ~2020-03-05 | XMS | Encounter Summary ---
Demographics + + + | Address | [address] | | | [place] [address] | + + + | Home Phone [...] Team Providers + +------+ + | Care Pump Erector Helper Name | Role | Phone | [...] for | | 2016 | | at [facility] [address] | [address] | new pt appt) | | | | [place] Mailcode: CH7C | [address] [place], | | | | | [facility] | [place] [address] | | | | | and Healing, | [phone] | | | | | [facility] | | | | | | Floor [place], [place] | | | | | | [address] | | | | | | [phone] | | | +--------+ + + + [...]
--- OUTSIDE RECORDS SUMMARY | ~2020-03-05 | XMS | Encounter Summary ---
Demographics + + + | Address | [address] | | | [place] [address] | + + + | Home Phone [...] Author + + + | Author | [facility] | + + + | Organization | [facility] | + + + | Address | Unknown | + + + | Phone | Unavailable | + + + Support + + +---------+ + | Name | Relationship | Address | Phone | + + +---------+ + | Royce Menchaca | ECON | Unknown | | + + +---------+ + Care Team Providers + +------+ + | Care C4 Planner Name | Role | Phone | + +------+ + | Miquel Calhoun MD | PCP | | + +------+ + Encounter Details +--------+ + + + + | Date | Type | Department | Care Team | Description | +--------+ + + + + | 10/18/ | Telephone | [facility] | Khushbu Cortez, | | | 2012 | | [facility] | [place], [place] | | | | | [address] | [address] | | | | | [address] | | | | | | Riddhi, [address] [place] [address] | | | | | | [place], [place] | | | | | | [address] | | | | | | [phone] | | | +--------+ + + + [...]
--- OUTSIDE RECORDS SUMMARY | ~2020-03-05 | XMS | Encounter Summary ---
Demographics + + + | Address | [address] | | | [place] [address] | + + + | Home Phone [...] Team Providers + +------+ + | Care Dehydrogenation Converter Helper Name | Role | Phone | [...] 2012 | | [facility] | [address] | (Dr. Holbrook) | | | | [address] [facility] [address] | | | | | [address] | [place], [place] | | | | | Riddhi, [facility] floor | [address] | | | | | [place], [place] | [phone] | | | | | [address] | | | | | | [phone] | | | +--------+ + + + [...]
--- OUTSIDE RECORDS SUMMARY | ~2020-03-05 | XMS | Encounter Summary ---
Demographics + + + | Address | [address] | | | [place] [address] | + + + | Home Phone [...] Team Providers + +------+ + | Care Show Dog Trainer Name | Role | Phone | [...] | | | | [place] | [place] [address] | [address] | | | | | Lumbar | Phone: | Phone: | | | | | radiculopath | [phone] | [phone] | | | | | y | Fax: | Fax: | | | | | Procedures | [phone] | [phone] | | | | | HIM 04/17/18 [...] | [place], [place] | [place] [address] | sequela (Primary | | | | [address] | [phone] | Dx); Lumbar | | | | [phone] | | radiculopathy | +--------+ + + [...] [place] | | | | | | [address] | | | | | | | | +--------+---------+ + + + | 04/03/ | Office | Cardiology | Zuleyka Castillo DO | | 2019 | Visit | | [address] | | | | | | [place] | | | | | | [address] | | | | | | | | +--------+---------+ + + + + + +--------+ + + | Name | Type | Priori | Associated Diagnoses | Order Schedule | | | | ty | | | + + +--------+ + + | AMB REFERRAL TO [facility] | Outpatient | Routin | Closed Compression [...]
--- OUTSIDE RECORDS SUMMARY | ~2020-03-05 | XMS | Encounter Summary ---
Demographics + + + | Address | [address] | | | [place] [address] | + + + | Home Phone | | + + + | Preferred Language | Unknown | + + + | Marital Status | Single | + + + | Gnosticist Affiliation | NON | + + + [...] Team Providers + +------+ + | Care Fast Food Supervisor Name | Role | Phone | + +------+ + PCP | Unavailable | + +------+ + Encounter Details +--------+ + + + + | Date | Type | Department | Care Team | Description | +--------+ + + + + | 06/26/ | Respiratory | | Other, Faculty | | | 2006 | Therapy | | [phone] | | +--------+ + + + + [...] Hassan, | | | | | | REGULATORY COORDINATOR | | | | + + + [...] [facility] | [address] | [place], [place] | | | DIAGNOSTICS - | J[place] [address]IM | [address] | | | PULMONARY FUNCTION | | | | + + + + + documented in this encounter Visit Diagnoses Not on filedocumented in this encounter"
--- OUTSIDE RECORDS SUMMARY | ~2020-03-05 | XMS | Encounter Summary ---
Demographics + + + | Address | [address] | | | [place] [address] | + + + | Home Phone [...] Team Providers + +------+ + | Care Cloud Automation Tester Name | Role | Phone | [...] | | | | | | | TN SURG | | | | | | | IMPLNT | | | | | | | NEUROELECT,E | | | | | | | PIDURAL TN | | | | | | | IMPLANT | | | | | | | NEUROSTIM/RE | | | | | | | CEIVER TN | | | | | | | [...] + + | 08/03/ | Anesthesia | [facility] | Yojana Arellano CRNA | | | 2019 | [facility] | [address] | | | | | OPERATING RO[address] | [place] [address] | | | | | [address] | [phone] | | | | | [place], [place] | | | | | | [address] | | | | | | [phone] | | | +--------+ + + + [...] +----+---+ + + | | 0 | [place] | | | | 9 | 43-degrees [...] [address] | | eral | Antecubital; [id number] | Mikayla Marcial, | Gamal Whitney, | [...] [place] | | | | | | [address] | | | | | | | | +--------+---------+ + + + | 04/03/ | Office | Cardiology | Zuleyka Castillo DO | | | 2019 | Visit | | [address] | | | | | | [place] | | | | | | [address] | | | | | | | [...] - 08/03/2019 9:52 AM PDT Anesthesia Airway Sjelvskkr70/4/2019 | | 9:33Preprocedure check: patient identified, oxygen, [...] | PRN, Starting 08/03/19 at | | AM PDT | | [...] | +---+---+ + +-------+ +--------+---+---+ | glycopyrrolate (ROBINUL) | Given | 08/03/20 | 0.4 mg [...] 19 9:40 | | | | | 10/4/19 at 930, Anesthesia | | AM PDT | | [...] | | | | Starting 08/03/19 at 31, | | AM PDT | | | | | Anesthesia Intra-op | | | | | | + +-------+ +--------+---+---+ +---+---+ | | | +---+---+ documented in this encounter"
--- OUTSIDE RECORDS SUMMARY | ~2020-03-05 | XMS | Encounter Summary ---
Demographics + + + | Address | [address] | | | [place] [address] | + + + | Home Phone [...] Team Providers + +------+ + | Care Maintenance Painter Apprentice Name | Role | Phone | [...] | | | | lumbar | PA-C [address] | [address] | | | | | region | [address], | AV [place], | | | | | Chronic low | [address] | [place] [address] | | | | | back pain | [place], [place] | Phone: | | | | | Facet | [address] | [phone] | | | | | arthritis of | Phone: | Fax: | | | | | lumbar | [phone] | [phone] | | | | | region | Fax: | | | | | | Scoliosis of | [phone] | | | | | | lumbar | | | | | | | spine Acute | | | | | | | renal | | | | | | | failure | | | | | | | (HCC) | | | | | | | Procedures | | | | | | | [place] OFFICE | | | | | | [...] [address] | [address], [address] | left L5-S1 (Primary | | | | [place], [place] | [place] [address] | Dx); Chronic low | | | | [address] | [phone] | back pain; Facet | | | | [phone] | | arthritis of lumbar | | [...] [place] | | | | | | [address] | | | | | | | | +--------+---------+ + + + | 04/03/ | Office | Cardiology | Zuleyka Castillo DO | | | 2019 | Visit | | [address] | | | | | | [place] | | | | | | [address] | | | | | | | [...]
--- OUTSIDE RECORDS SUMMARY | ~2020-03-05 | XMS | Encounter Summary ---
Demographics + + + | Address | [address] | | | [place] [address] | + + + | Home Phone [...] Team Providers + +------+ + | Care Formation Testing Operator Name | Role | Phone | [...] + + | 04/10/ | Telephone | [facility] | Nick Martinez, | Medication Prior | | 2017 | | PHYSIATRY [address] | PA-C [address] | Authorization | | | | [address] | [address] [place] | (Lidocaine Patch ) | | | | [place] | [place] [address] | | | | | [address] | [phone] | | | | | [phone] | | | +--------+ + + + [...] [place] | | | | | | [address] | | | | | | | | +--------+---------+ + + + | 04/03/ | Office | Cardiology | Zuleyka Castillo DO | | | 2020 | Visit | | [address] | | | | | | [place] | | | | | | [phone] | | | | | | | | +--------+---------+ + + + documented as of this encounter Visit Diagnoses Not on filedocumented in this encounter"
--- OUTSIDE RECORDS SUMMARY | ~2020-03-05 | XMS | Encounter Summary ---
Demographics + + + | Address | [address] | | | [place] [address] | + + + | Home Phone | | + + + | Preferred Language | Unknown | + + + | Marital Status | Single | + + + | Tenriism Affiliation | NON | + + + [...] Team Providers + +------+ + | Care Radiological Technologist Name | Role | Phone | [...] | | 2016 | Encounter | at [facility] [address] | [address] | medical records from | | | | Ave Mailcode: [facility] | [address] [place], | [facility] in | | | | [place] for [facility] | [place] [address] | [facility] | | | | and Healing, | [phone] | [address] | | | | [facility] | | Ant | | | | Floor [place], [place] | | | | | | [address] | | | | | | [phone] | | | +--------+ + + + [...]
--- OUTSIDE RECORDS SUMMARY | ~2020-03-05 | XMS | Encounter Summary ---
Demographics + + + | Address | [address] | | | [place] [address] | + + + | Home Phone [...] Team Providers + +------+ + | Care Teacher Aide Clerical Name | Role | Phone | + [...] | | [address] | [place] [address] | | | | | [place] | [phone] | | | | | [address] | | | | | | [phone] | | | +--------+ + + + [...] [place] | | | | | | [address] | | | | | | | | +--------+---------+ + + + | 04/03/ | Office | Cardiology | Zuleyka Castillo DO | | | 2020 | Visit | | [address] | | | | | | [place] | | | | | | [address] | | | | | | | | +--------+---------+ + + + documented as of this encounter Visit Diagnoses Not on filedocumented in this encounter"
--- OUTSIDE RECORDS SUMMARY | ~2020-03-05 | XMS | Encounter Summary ---
Demographics + + + | Address | [address] | | | [place] [address] | + + + | Home Phone [...] Providers + +------+ + | Care Gas Load Dispatcher Name | Role | Phone | + +------+ + | Miquel Calhoun MD | PCP | | + +------+ + Encounter Details +--------+ + + + + | Date | Type | Department | Care Team | Description | +--------+ + + + + | 05/01/ | Hospital | [facility] | Shay Dietz | | | 2012 | Encounter | MED CTR XRAY [address] | T, [address] | | | | | [place] | [facility] [place], [place] | | | | | [place] [address] | [address] | | | | | [phone] | | | +--------+ + + + [...] [place] | | | | | | [address] | | | | | | | | +--------+---------+ + + + | 04/03/ | Office | Cardiology | Zuleyka Castillo DO | | | 2019 | Visit | | [address] | | | | | | [place] | | | | | | [address] | | | | | | | [...] Performed At | + + + | [facility] Diagnostic [facility] | [place] | | Department [address] [place] [address] | [facility] | | [ rep ct street[address]] [ rep ct [facility] | | st zip] Signed | - IMAGING | | | | | Patient Name: KORI HARMON | | | Physician: OMID : [id number] Age: 67 Sex: F Unit | | | #: [id number] Exam Date: 05/01/13 Location: | | | [facility] Report #: [id number] Page: | | | %(RAD)RES..mtdd.print.filter("pg") of %(RAD) | | | RES..mtdd.print.filter("tpg") | | | | | | Accession Number: [id number] | | | PROCEDURE NOTE LUMBAR FACET [...] Transcribed | | | Date/Time: 05/09/2013 18:53 Bridge Operator: | | | <<Signature on File>> | | | Shay Mukherjee | | | MD J [id number]/15/[id number] <Electronically signed by Shay Mukherjee | | | J Luis SALGADO> Shay Dietz MD 05/09/13 1813 | | | Bridge Operator: Yudelka Alogeokzxqfoy54/10/13 7933 | | | | | + + + + + + + + | Performing | Address | City/State/Zipcode | Phone Number | | Organization | | | | + + + + + | [address] | [address] | [place] | [phone] | | [facility] | | [address] | | | - IMAGING | | | | + + + + + documented in this encounter Visit Diagnoses Not on filedocumented in this encounter
--- OUTSIDE RECORDS SUMMARY | ~2020-03-05 | XMS | Encounter Summary ---
Demographics + + + | Address | [address] | | | [place] [address] | + + + | Home Phone [...] Providers + +------+ + | Care Telephone Betting Clerk Name | Role | Phone | [...]
--- OUTSIDE RECORDS SUMMARY | ~2020-03-05 | XMS | Encounter Summary ---
Demographics + + + | Address | [address] | | | [place] [address] | + + + | Home Phone [...] Providers + +------+ + | Care Case Finisher Name | Role | Phone | + +------+ + | Romy De La Paz MD | PCP | | + +------+ + Encounter Details +--------+ + + + + | Date | Type | Department | Care Team | Description | +--------+ + + + + | 07/18/ | Clinical | [facility] | | Radiculopathy of | | 2019 | Support | NEUROSURGERY [address] | | thoracolumbar | | | | [address] | | region; | | | | [place], [place] | | Postlaminectomy | | | | [address] | | syndrome, thoracic | | | | [phone] | | region | +--------+ + + [...] concerns feel free to call us at [phone]. documented in this encounter Progress Notes Niki [...] that she will on occasion run a [employer] ow grade fever and all tests and blood work come back negative infection, patient states she does have a history of UTI's as well. Patient was sent to [facility] for their scheduled pre-admit appointment, anesthesia [...] [place] | | | | | | [id number] | | | | | | | | +--------+---------+ + + + | 04/03/ | Office | Cardiology | Zuleyka Castillo DO | | 2019 | Visit | | [address] | | | | | | [place] | | | | | | [address] | | | | | | | | +--------+---------+ + + + documented as of this encounter Visit Diagnoses + + | Diagnosis | + + | Radiculopathy of thoracolumbar region Thoracic or lumbosacral neuritis or | | radiculitis, unspecified | + + | Postlaminectomy syndrome, thoracic region | + + documented in this encounter
--- OUTSIDE RECORDS SUMMARY | ~2020-03-05 | XMS | Encounter Summary ---
Demographics + + + | Address | [address] | | | [place] [address] | + + + | Home Phone [...] Providers + +------+ + | Care Supervisor Composing Room Name | Role | Phone | + [...] + + | 07/26/ | Telephone | [facility] | Darrin Hoyos | Records Request (MRI | | 2013 | | NEUROSURGERY [address] | [address] | OF LUMBAR SPINE) | | | | [address] | [address] | | | | | [place], [place] | [place] [address] | | | | | [address] | [phone] | | | | | [phone] | | | +--------+ + + + [...] [place] | | | | | | [address] | | | | | | | | +--------+---------+ + + + | 04/03/ | Office | Cardiology | Zuleyka Castillo DO | | | 2020 | Visit | | [address] | | | | | | [place] | | | | | | [phone] | | | | | | | | +--------+---------+ + + + documented as of this encounter Visit Diagnoses Not on filedocumented in this encounter"
--- OUTSIDE RECORDS SUMMARY | ~2020-03-05 | XMS | Encounter Summary ---
Demographics + + + | Address | [address] | | | [place] [address] | + + + | Home Phone [...] Team Providers + +------+ + | Care Water/Wastewater Engineer Name | Role | Phone | [...] + + | 07/26/ | Telephone | [facility] | Darrin Hoyos | Records Request (MRI | | 2013 | | NEUROSURGERY [address] | [address] | OF LUMBAR SPINE) | | | | [address] | [address] | | | | | [place], [place] | [place] [address] | | | | | [address] | [phone] | | | | | [phone] | | | +--------+ + + + [...] [place] | | | | | | [address] | | | | | | | | +--------+---------+ + + + | 04/03/ | Office | Cardiology | Zuleyka Castillo DO | | | 2020 | Visit | | [address] | | | | | | [place] | | | | | | [phone] | | | | | | | | +--------+---------+ + + + documented as of this encounter Visit Diagnoses Not on filedocumented in this encounter"
--- OUTSIDE RECORDS SUMMARY | ~2020-03-05 | XMS | Encounter Summary ---
Demographics + + + | Address | [address] | | | [place] [address] | + + + | Home Phone [...] + +------+ + | Care Top Lift Nailer Name | Role | Phone | + +------+ + | Romy De La Paz MD | PCP | | + +------+ + Encounter Details +--------+ + + + + | Date | Type | Department | Care Team | Description | +--------+ + + + + | 07/17/ | Prep for | [facility] | Maykel Hutchins MD | Chronic low back | | 2019 | Procedure | [facility] | [address] | pain with sciatica, | | | | ORTHOPEDIC SPINE | [facility], | sciatica laterality | | | | [address] [place] | [place] [address] | unspecified, | | | | [facility] | [phone] | unspecified back | | | | [address] | | pain laterality | | | | [phone] | | (Primary Dx); Right | | [...] [place] | | | | | | [address] | | | | | | | | +--------+---------+ + + + | 04/03/ | Office | Cardiology | Zuleyka Castillo DO | | | 2019 | Visit | | [address] | | | | | | [place] | | | | | | [address] | | | | | | | [...]
--- OUTSIDE RECORDS SUMMARY | ~2020-03-05 | XMS | Encounter Summary ---
Demographics + + + | Address | [address] | | | [place] [address] | + + + | Home Phone [...] Team Providers + +------+ + | Care Cat Scan Tech Name | Role | Phone | + +------+ + | Wendi Aiken | PCP | | + +------+ + Encounter Details +--------+ + + + + | Date | Type | Department | Care Team | Description | +--------+ + + + + | 05/10/ | Imaging | [facility] | Provider, | | | 2018 | Exam | MED CTR EXTERNAL | MD [address] | | | | | IMAGING [address] | Vas[address] VAL[address]Z | | | | | [facility] | [place] [address] | | | | | [place] [address] | | | | | | [phone] | | | +--------+ + + + [...] [place] | | | | | | [id number] | | | | | | | | +--------+---------+ + + + | 04/03/ | Office | Cardiology | Zuleyka Castillo DO | | | 2019 | Visit | | [address] | | | | | | [place] | | | | | | [address] | | | | | | | [...]
--- OUTSIDE RECORDS SUMMARY | ~2020-03-05 | XMS | Encounter Summary ---
Demographics + + + | Address | [address] | | | [place] [address] | + + + | Home Phone [...] Team Providers + +------+ + | Care Last Model Department Supervisor Name | Role | Phone [...] | [facility] | [address] | (Dr. Holbrook) | | | | Riddhi [address] [facility] [address] | | | | | [address] | [place], [place] | | | | | Riddhi, [facility] floor | [address] | | | | | [place], [place] | [phone] | | | | | [address] | | | | | | [phone] | | | +--------+ + + + [...]
--- OUTSIDE RECORDS SUMMARY | ~2020-03-05 | XMS | Encounter Summary ---
Demographics + + + | Address | [address] | | | [place] [address] | + + + | Home Phone [...] Team Providers + +------+ + | Care Guest Services Associate Name | Role | Phone | + +------+ + | Romy De La Paz MD | PCP | | + +------+ + Reason for Visit +---------+ + | Reason | Comments | +---------+ + | Imaging | MRI order | +---------+ + Encounter Details +--------+ + + + + | Date | Type | Department | Care Team | Description | +--------+ + + + + | 02/17/ | Telephone | [facility] | Denys Sibley, | Imaging (MRI order) | | 2020 | | NEUROSCIENCE CENTER | DO [address] | | | | | [address] | [address] [place], [place] | | | | | [address] | [address] | | | | | [place], [place] | | | | | | [address] | | | | | | [phone] | | | +--------+ + + + [...] [place] | | | | | | [address] | | | | | | | | +--------+---------+ + + + | 04/03/ | Office | Cardiology | Zuleyka Castillo DO | | | 2020 | Visit | | [address] | | | | | | [place] | | | | | | [phone] | | | | | | | | +--------+---------+ + + + documented as of this encounter Visit Diagnoses Not on filedocumented in this encounter"
--- OUTSIDE RECORDS SUMMARY | ~2020-03-05 | XMS | Encounter Summary ---
Demographics + + + | Address | [address] | | | [place] [address] | + + + | Home Phone [...] Providers + +------+ + | Care Software Test And Validation Engineer Name | Role | Phone | + +------+ + | Wendi Aiken | PCP | | + +------+ + Encounter Details +--------+ + + + + | Date | Type | Department | Care Team | Description | +--------+ + + + + | 07/12/ | Hospital | [facility] | Sj Valdes MD | Left lumbar | | 2017 | Encounter | MED CTR XRAY [address] | [address] | radiculopathy; DISC | | | | [place] | [place] [address] | DISEASE, LUMBAR; | | | | [place] [address] | [phone] | Back pain, | | | | [phone] | | unspecified back | | | [...] Description | +--------+---------+ + + + | 05/18/ | Office | Pain Medicine | Antwonveronica Denys [place], | | | 2019 | Visit | | DO [address] | | | | | | [place] | | | | | | [address] | | | | | | | | +--------+---------+ + + + | 04/03/ | Office | Cardiology | Zuleyka Castillo DO | | | 2019 | Visit | | [address] | | | | | | [place] | | | | | | [address] | | | | | | | [...]
--- OUTSIDE RECORDS SUMMARY | ~2020-03-05 | XMS | Encounter Summary ---
Demographics + + + | Address | [address] | | | [place] [address] | + + + | Home Phone [...] Team Providers + +------+ + | Care Hull Sorter Name | Role | Phone | + +------+ + | Wendi Aiken | PCP | | + +------+ + Encounter Details +--------+ + + + + | Date | Type | Department | Care Team | Description | +--------+ + + + + | 12/28/ | Hospital | [facility] | Conversion | Diagnosis unknown | | 2018 | Encounter | CONVERSION [address] | Transaction, | | | | | [address] | Provider Unknown | | | | | [place], [place] | [phone] | | | | | [address] | | | | | | [phone] | | | +--------+ + + + [...] [place] | | | | | | [address] | | | | | | | | +--------+---------+ + + + | 04/03/ | Office | Cardiology | Zuleyka Castillo DO | | | 2019 | Visit | | [address] | | | | | | [place], [place] | | | | | | [address] | | | | | | | [...]
--- OUTSIDE RECORDS SUMMARY | ~2020-03-05 | XMS | Encounter Summary ---
Demographics + + + | Address | [address] | | | [place] [address] | + + + | Home Phone [...] Team Providers + +------+ + | Care Real Property Appraiser Name | Role | Phone | + +------+ + | Wendi Aiken | PCP | | + +------+ + Encounter Details +--------+ + + + + | Date | Type | Department | Care Team | Description | +--------+ + + + + | 07/12/ | Hospital | [facility] | Sj Valdes MD | Left lumbar | | 2017 | Encounter | MED CTR XRAY [address] | [address] | radiculopathy; DISC | | | | [place] | [place] [address] | DISEASE, LUMBAR; | | | | [place] [address] | [phone] | Back pain, | | | | [phone] | | unspecified back | | | [...] [place] | | | | | | [address] | | | | | | | | +--------+---------+ + + + | 04/03/ | Office | Cardiology | Zuleyka Castillo DO | | | 2019 | Visit | | [address] | | | | | | [place] | | | | | | [address] | | | | | | | [...]
--- OUTSIDE RECORDS SUMMARY | ~2020-03-05 | XMS | Encounter Summary ---
Demographics + + + | Address | [address] | | | [place] [address] | + + + | Home Phone [...] Team Providers + +------+ + | Care Appliance Repairer Name | Role | Phone | [...] + + | 01/13/ | Office | [facility] | Denys Sibley, | S/P insertion of | | 2019 | Visit | [facility] | DO [address] | spinal cord | | | | [address] | [address] [place] | stimulator (Primary | | | | [address] | [address] | Dx); Spinal stenosis | | | | [place], [place] | | of lumbosacral | | | | [address] | | region; Lumbar | | | | [phone] | | region somatic | | | [...] encounter Progress Notes Denys Sibley DO - 01/14/2020 3:20 PM PDTFormatting of [...] 8 hours as needed muscle spasms and Welcome 10/325 1 p.o. every 4 hours PRN [...] but not limited to physical therapy, healthcare interpreter, acupuncture, massage therapy, and nutritional healt h [...] Author Status Filed Medication Agreement Rupa Nye, Biofuels Technology Manager Active 11/14/2019 1:49 PM Pain Contract- Dr. Sibley 11/14/2019 PEG Pain screening tool (Pain, enjoyment, general activity) Total score: (Printable questionnaires in Guamanian ) Interpretation of Total Score: PEG scores are used to track changes over time. It should de crease after therapy has begun. Last 4 PEG Scores: No flowsheet data found. Opioid Risk Tool (ORT): Total Score Pulse: 79 BP: 107/62 (From Chronic Pain tab; printable questionnaires in Guamanian) Interpretation of Total Score: 0 to 3 [...] Procedure: KYPHOPLASTY; Surgeon: Alfredo Casillas DO; Location: [facility] MA[facility] OR; Service: Pa in Management; Laterality: N/A; L5 FRACTURE SURGERY ANKLE HERNIA REPAIR HYSTERECTOMY HYSTERECTOMY LAMINECTOMY N/A 08/03/2019 Procedure: LAMINOTOMY THORACIC / LUMBAR W/ PLACEMENT SPINAL CORD STIMULATOR; Surgeon: Suly Hutchins MD; Location: [facility] MA[facility] OR OTHER SURGICAL HISTORY EPIDURAL STEROID [...] 500 mg 4 times a day, and Welcome 10/325 1 p.o. q. 4-5 chet es [...] = high risk) Daily Opioid Dose = Welcome 10/325 1 p.o. every 4 hours as [...] to physical therapy, massage therapy, acupuncture, healthcare interpreter, along with niki mmended psychological counseling, either privately, or in group sessions offered by private care individuals, community services, or hinduism organizations. Appropriate referrals were made at patient [...] are noted in men and women. Ma ks men will suffer erectile dysfunction with these [...] and complications with the passage of time. citrix systems administrator use is also associated with depressions, and [...] and coordination of care with other health critical care cns and monitoring labs results, other test results and imagin g including [facility] and/or [facility] prescription monitoring systems. This document has been created using [employer] Voice Recognition software and [employer]. The entry has been reviewed for content and accuracy, but there may still exist "sound alike" registered nurse post partum word errors and/or unintended additions and deletions. [...] [place] | | | | | | [address] | | | | | | | | +--------+---------+ + + + | 04/03/ | Office | Cardiology | Zuleyka Castillo DO | | 2019 | Visit | | [address] | | | | | | [place] | | | | | | [address] | | | | | | | [...]
--- OUTSIDE RECORDS SUMMARY | ~2020-03-05 | XMS | Encounter Summary ---
Demographics + + + | Address | [address] | | | [place] [address] | + + + | Home Phone [...] Providers + +------+ + | Care Color Depositing Machine Tender Name | Role | Phone [...] + + | 08/05/ | Office | [facility] | Spenser, | Foraminal stenosis | | 2013 | Visit | PH[address]SIATRY [address] | [address] | of lumbar region - | | | | [address] | [address] | left L5-S1 (Primary | | | | [place], [place] | [place] [address] | Dx); Left lumbar | | | | [address] | [phone] | radiculopathy; DDD | | | | [phone] | | (degenerative disc | | | [...] of the procedure you must provide a hi low truck driver to take you home. For [...] narcotic medications, NSAIDS and neuropathic pain [facility] which has not helped in the past.. [...] short or [facility] memory. She has appropriate fund of knowledge [...] along with flexion/extension xray's perf ormed in [place] last week. I will request for these images to be transferred to her comp uter system. The patient is to follow up with Neurosurgery 09/10/14. I will ask them if th yesika can see her sooner. However if not, [...] [place] | | | | | | [address] | | | | | | | | +--------+---------+ + + + | 04/03/ | Office | Cardiology | Zuleyka Castillo DO | | 2019 | Visit | | [address] | | | | | | [place] | | | | | | [address] | | | | | | | [...] radiculopathy ICD-9 Code 724.4 Kori Caputo | [facility] | | Joanne presents to the fluoroscopy suite for a | [facility] | | fluoroscopically-guided left L5-S1 transforaminal [...] | | Steroid InjectionDiagnosis: Lumbar radiculopathyICD-9 Code 724.4Kori Caputo | | Joanne presents to the [...] + + | [address] | [address] | [place] | [phone] | | [facility] | | [address] | | | - IMAGING | | [...]
--- OUTSIDE RECORDS SUMMARY | ~2020-03-05 | XMS | Encounter Summary ---
Demographics + + + | Address | [address] | | | [place] [address] | + + + | Home Phone [...] Team Providers + +------+ + | Care Lining Setter Name | Role | Phone | + +------+ + | Romy De La Paz MD | PCP | | + +------+ + Encounter Details +--------+ + + + + | Date | Type | Department | Care Team | Description | +--------+ + + + + | 07/17/ | Prep for | [facility] | Maykel Hutchins MD | Chronic low back | | 2019 | Procedure | [facility] | [address] | pain with sciatica, | | | | ORTHOPEDIC SPINE | [facility], | sciatica laterality | | | | [address] [place] | [place] [address] | unspecified, | | | | [facility] [place] | [phone] | unspecified back | | | | [address] | | pain laterality | | | | [phone] | | (Primary Dx); Right | | [...] [place] | | | | | | [address] | | | | | | | | +--------+---------+ + + + | 04/03/ | Office | Cardiology | Zuleyka Castillo DO | | | 2019 | Visit | | [address] | | | | | | [place] | | | | | | [address] | | | | | | | [...]
--- OUTSIDE RECORDS SUMMARY | ~2020-03-05 | XMS | Encounter Summary ---
Demographics + + + | Address | [address] | | | [place] [address] | + + + | Home Phone [...] Team Providers + +------+ + | Care Target Developer Name | Role | Phone | [...] + + | 04/06/ | Telephone | [facility] | Nick Martinez, | Results, Imaging | | 2018 | | PHYSIATRY [address] | PA-C [address] | (MRI/Cancelled | | | | [address] | [address] [place] | Injection) | | | | [place] | [place] [address] | | | | | [address] | [phone] | | | | | [phone] | | | +--------+ + + + [...] [place] | | | | | | [address] | | | | | | | | +--------+---------+ + + + | 04/03/ | Office | Cardiology | Zuleyka Castillo DO | | | 2020 | Visit | | [address] | | | | | | [place] | | | | | | [address] | | | | | | | | +--------+---------+ + + + documented as of this encounter Visit Diagnoses Not on filedocumented in this encounter"
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
--- OUTSIDE RECORDS SUMMARY | ~2020-03-05 | XMS | Encounter Summary ---
Demographics + + + | Address | [address] | | | [place] [address] | + + + | Home Phone [...] Providers + +------+ + | Care Wire Harness Design Engineer Name | Role | Phone [...] Chronic low | [place], | [address] | | | | | back pain | Shay Mukherjee MD | [place], | | | | | Lumbar | [address] | [place] | | | | | radiculopath | [place] | [address] | | | | | y | [place], [place] | Phone: | | | | | Procedures | [address] | [phone] | | | | | MRI Lumbar | Phone: | Fax: | | | | | Spine wo | [phone] | [phone] | | | | | Contrast | Fax: | | | | | | MRI | [phone] | | +--------+--------+ + + + + [...] Chronic low | [place], | [address] | | | | | back pain | Shay Mukherjee MD | [place], | | | | | Lumbar | [address] | [place] | | | | | radiculopath | [place] | [address] | | | | | y | [place], [place] | Phone: | | | | | Procedures | [address] | [phone] | | | | | MRI Lumbar | Phone: | Fax: | | | | | Spine wo | [phone] | [phone] | | | | | Contrast | Fax: | | | | | | MRI | [phone] | | +--------+--------+ + + + + Encounter Details +--------+ + + + + | Date | Type | Department | Care Team | Description | +--------+ + + + + | 04/12/ | Hospital | [facility] | Shay Dietz | Chronic low back | | 2013 | Encounter | MED CTR MRI [address] | T, [address] | pain; Lumbar | | | | [address] [place], | [place], [place] | radiculopathy | | | | [place] [address] | [address] | | | | | [phone] | | | +--------+ + + + [...] [place] | | | | | | [address] | | | | | | | | +--------+---------+ + + + | 04/03/ | Office | Cardiology | Zuleyka Castillo DO | | | 2019 | Visit | | [address] | | | | | | [place] | | | | | | [address] | | | | | | | [...] | | | |Dictated and Signed by: aCrlos Rodriguez MD | | Electronically signed: 04/12/2014 12:35 PM | + + + +---------+ + + | Performing | Address | City[facility] | Phone Number | | Organization | | | | + +---------+ + + | MISCELLANEOUS LAB | | | [phone] | + +---------+ + + | MISCELANIOUS LAB | | | [phone] | + +---------+ + + documented in this encounter Visit Diagnoses + + | Diagnosis | + + | Chronic low back pain Lumbago | + + | Lumbar radiculopathy Thoracic or lumbosacral neuritis or radiculitis, unspecified | + + documented in this encounter"
--- OUTSIDE RECORDS SUMMARY | ~2020-03-05 | XMS | Encounter Summary ---
Demographics + + + | Address | [address] | | | [place] [address] | + + + | Home Phone [...] Team Providers + +------+ + | Care Title Closer Name | Role | Phone | + [...] | | | | | (HCC) | [facility], | [address] | | | | | Scoliosis of | [place] [address] | [place], | | | | | lumbar | Phone: | [place] [address] | | | | | spine, | [phone] | Phone: | | | | | unspecified | Fax: | [phone] | | | | | scoliosis | [phone] | Fax: | | | | | type | | [phone] | | | | | Foraminal | [...] Scheduling Instructions | + + | Prefers [place] if possible | + + Reason for [...] | | Services | | Chronic | Sp[place] | MD [address] | | | Required | | bilateral | [place], | [address] | | | | | low back | PA-C [address] | [place], [place] | | | | | pain with | [address], | [address] | | | | | right-sided | [address] | Phone: | | | | | sciatica | [place] | [phone] | | | | | Facet | [address] | Fax: | | | | | arthritis of | Phone: | [phone] | | | | | lumbar | [phone] | | | | | | region | Fax: | | | | | | Adolescent | 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 Sj Valdes M.D. [address] [place] [address], [address] [place] [address] NEUROSURGERY HISTORY AND PHYSICAL EXAMINATION CHIEF COMPLAINT: [...] of multiple suicidal attempts but none since 2014 per her today. PAST MEDICAL HISTORY: Past [...] has no apparent deficits with short or extermination inspector memory. MOTOR EXAM: (5 IS NORMAL) * Indicates pain limited MUSCLE/ MOVEMENT: RIGHT LEFT Deltoids 5 4+ Biceps 5 5 Triceps 5 5 Wrist Flexion 5 5 Wrist Extension 5 5 Median Intrinsics 5 4 Ulnar Intrinsics 5 4 Packing Room Worker Strength 5 4 Hip Flexion 5 4* [...] she continues to see a psychologist in [place]. Despite her continued evaluation, I do not [...] | | | | | | DR[address] [place] | | | | | | [id number] | | | | | | | | +--------+---------+ + + + | 06/04/ | Office | Cardiology | Zuleyka Castillo DO | | | 2020 | Visit | | [address] | | | | | | [place] | | | | | | [address] | | | | | | | [...]
--- OUTSIDE RECORDS SUMMARY | ~2020-03-05 | XMS | Encounter Summary ---
Demographics + + + | Address | [address] | | | [place] [address] | + + + | Home Phone [...] Team Providers + +------+ + | Care Soil Sort Worker Name | Role | Phone | [...] | | | | CENTER [address] | [place] | Dx) | | | | [place] | [id number] | | | | | [address] | | | | | | [phone] | | | +--------+ + + + [...] [place] | | | | | | [address] | | | | | | | | +--------+---------+ + + + | 04/03/ | Office | Cardiology | Zuleyka Castillo DO | | | 2019 | Visit | | [address] | | | | | | [place] | | | | | | [address] | | | | | | | [...]
--- OUTSIDE RECORDS SUMMARY | ~2020-03-05 | XMS | Encounter Summary ---
Demographics + + + | Address | [address] | | | [place] [address] | + + + | Home Phone [...] Team Providers + +------+ + | Care Management Development Specialist Name | Role | Phone [...] | [address] | | | | | [address] | | | | | | [phone] | | | +--------+ + + + [...] [place] | | | | | | [address] | | | | | | | | +--------+---------+ + + + | 04/03/ | Office | Cardiology | Zuleyka Castillo DO | | | 2020 | Visit | | [address] | | | | | | [place] | | | | | | [address] | | | | | | | | +--------+---------+ + + + documented as of this encounter Visit Diagnoses Not on filedocumented in this encounter"
--- OUTSIDE RECORDS SUMMARY | ~2020-03-05 | XMS | Encounter Summary ---
Demographics + + + | Address | [address] | | | [place] [address] | + + + | Home Phone [...] Team Providers + +------+ + | Care Auto Repair Shop Manager Name | Role | Phone | + +------+ + | Romy De La Paz MD | PCP | | + +------+ + Encounter Details +--------+ + + + + | Date | Type | Department | Care Team | Description | +--------+ + + + + | 09/18/ | Preadmit | [facility] | No, Physician p | | | 2019 | Visit | [facility] | | | | | | CLINIC [address] | | | | | | [place], [place] | | | | | | [address] | | | | | | [phone] | | | +--------+ + + + [...] for the 07/18/19 encounter (Preadmit Visit) with [facility] ROOM 5 Medication Sig Instructions Ascorbic [...] by elevating your feet Date Last Reviewed: 2260-6496 [employer]. [address] [place] [address]. All righ ts reserved. This information is [...] [place] | | | | | | [address] | | | | | | | | +--------+---------+ + + + | 04/03/ | Office | Cardiology | Zuleyka Castillo DO | | | 2019 | Visit | | [address] | | | | | | [place] | | | | | | [address] | | | | | | | [...] | | | | | Signed by: Sahdy Briggs David | | Sign Date/Time: 07/18/2019 [...] Antibody | Testing performed at | | [facility] | | | Screen | [facility];[address] | | LABORATORY | | | | [address];[place] [address] | | | | + + + + + + + + | Specimen | + + | Blood | + + + + + + + | Performing | Address | City/State/Zipcode | Phone Number | | Organization | | | | + + + + + | [facility] | [address] | [place] [address] | [phone] | + + + + + MRSA [...] [facility] | | | | performed at [facility];[address] | | LABORATORY | | | | [address];[place], [place] | | | | | | [address] | | | | + + + + + + + + | Specimen | + + | Tissue - Both | | anterior nares (body | | structure) | + + + + + + + | Performing | Address | City/State/Zipcode | Phone Number | | Organization | | | | + + + + + | [facility] | [address] | [place] [address] | [phone] | + + + + + Protime [...] | | | | | performed at [facility];[address] | | | | | | [facility], [place] | | | | | | [address] | | | | + + + + + + + + | Specimen | + + | Blood | + + + + + + + | Performing | Address | City/State/Zipcode | Phone Number | | Organization | | | | + + + + + | [facility] | [address] [facility] | [place] [address] | [phone] | + + + + + PTT (07/18/2019 2:26 PM PDT) + + + + + + | Component | Value | Ref Range | Performed | Pathologist | | | | | At | Signature | + + + + + + | PTT | 29Comment: Testing | 23 - 32 seconds | [facility] | | | | performed at [facility];[address] | | LABORATORY | | | | [address];[place] | | | | | | [address] | | | | + + + + + + + + | Specimen | + + | Blood | + + + + + + + | Performing | Address | City/State/Zipcode | Phone Number | | Organization | | | | + + + + + | [facility] | [address] | [place] [address] | [phone] | + + + + + Comprehensive [...] | | | | | | [facility] traceable | | | | | | equation.Testing | | | | | | performed at [facility], [address] | | | | | | [facility], | | | | | | [place] [address] | | | | + + + + + + + + | Specimen | + + | Blood | + + + + + + + | Performing | Address | City/State/Zipcode | Phone Number | | Organization | | | | + + + + + | [facility] | [address] | [place] [address] | [phone] | + + + + + CBC [...] 0.03Comment: Testing | 0.00 - 0.10 | [facility] | | | Absolute | performed at [facility], [address] | K/uL | LABORATORY | | | | [address], | | | | | | [place] [address] | | | | + + + + + + + + | Specimen | + + | Blood | + + + + + + + | Performing | Address | City/State/Zipcode | Phone Number | | Organization | | | | + + + + + | [facility] | [address] | [place] [address] | [phone] | + + + + + ECG [...]
--- OUTSIDE RECORDS SUMMARY | ~2020-03-05 | XMS | Encounter Summary ---
Demographics + + + | Address | [address] | | | [place] [address] | + + + | Home Phone [...] Team Providers + +------+ + | Care Hazardous Material Technician Name | Role | Phone | [...] + | 10/29/ | Telephone | [facility] | Sj Valdes MD | Appointment | | 2013 | | NEUROSURGERY [address] | [address] | (Increased | | | | [address] | [place] [address] | pain-requesting | | | | [place] | [phone] | [facility] | | | | [address] | | | | | | [phone] | | | +--------+ + + + [...] [place] | | | | | | [address] | | | | | | | | +--------+---------+ + + + | 04/03/ | Office | Cardiology | Zuleyka Castillo DO | | | 2019 | Visit | | [address] | | | | | | [place] | | | | | | [id number] | | | | | | | | +--------+---------+ + + + documented as of this encounter Visit Diagnoses Not on filedocumented in this encounter"
--- OUTSIDE RECORDS SUMMARY | ~2020-03-05 | XMS | Encounter Summary ---
Demographics + + + | Address | [address] | | | [place] [address] | + + + | Home Phone [...] Providers + +------+ + | Care Hotel Breakfast Attendant Name | Role | Phone | [...] Provider Unknown | | | | | [place], [place] | | | | | | [address] | (Fax) | | | | | [phone] | | | +--------+ + + + [...] [place] | | | | | | [address] | | | | | | | | +--------+---------+ + + + | 04/03/ | Office | Cardiology | Zuleyka Castillo DO | | | 2019 | Visit | | [address] | | | | | | [place] | | | | | | [id number] | | | | | | | [...]
--- OUTSIDE RECORDS SUMMARY | ~2020-03-05 | XMS | Encounter Summary ---
Demographics + + + | Address | [address] | | | [place] [address] | + + + | Home Phone [...] Providers + +------+ + | Care Medical Information Officer Name | Role | Phone | [...] | | | | | (HCC) | [facility], | [address] | | | | | Scoliosis [place] | [place] [address] | [place], | | | | | lumbar | Phone: | [place] [address] | | | | | spine, | [phone] | Phone: | | | | | unspecified | Fax: | [phone] | | | | | scoliosis | [phone] | Fax: | | | | | type | | [phone] | | | | | Foraminal | [...] Scheduling Instructions | + + | Prefers [place] if possible | + + Reason for [...] low back | PA-C [address] | [place], [place] | | | | | pain with | [address], | [address] | | | | | right-sided | [address] | Phone: | | | | | sciatica | [place] | [phone] | | | | | Facet | [address] | Fax: | | | | | arthritis of | Phone: | [phone] | | | | | lumbar | [phone] | | | | | | region | Fax: | | | | | | 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 Sj Valdes M.D. 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 MOTOR EXAM: (5 IS NORMAL) * Indicates pain limited MUSCLE/ MOVEMENT: RIGHT LEFT Deltoids 5 4+ Biceps 5 5 Triceps 5 5 Wrist Flexion 5 5 Wrist Extension 5 5 Median Intrinsics 5 4 Ulnar Intrinsics 5 4 Manager Process Excellence Strength 5 4 Hip Flexion 5 4* [...] she continues to see a psychologist in [place]. Despite her continued evaluation, I do not [...] | | | | | | DRIVE [place] | | | | | | [id number] | | | | | | | | +--------+---------+ + + + | 06/04/ | Office | Cardiology | Zuleyka Castillo DO | | | 2020 | Visit | | [address] | | | | | | [place] | | | | | | [address] | | | | | | | [...]
--- OUTSIDE RECORDS SUMMARY | ~2020-03-05 | XMS | Encounter Summary ---
Demographics + + + | Address | [address] | | | [place] [address] | + + + | Home Phone [...] + +------+ + | Care Director Of Public Relations Name | Role | Phone | [...] + + | 08/31/ | Telephone | [facility] | Denys Sibley, | Back Pain (Severe | | 2019 | | [facility] | DO [address] | pain) | | | | [address]OLOGY [address] | [address] [place], [place] | | | | | [address] | [address] | | | | | [place], [place] | | | | | | [address] | | | | | | [phone] | | | +--------+ + + + [...] [place] | | | | | | [address] | | | | | | | | +--------+---------+ + + + | 04/03/ | Office | Cardiology | Zuleyka Castillo DO | | | 2020 | Visit | | [address] | | | | | | [place] | | | | | | [address] | | | | | | | | +--------+---------+ + + + documented as of this encounter Visit Diagnoses Not on filedocumented in this encounter"
--- OUTSIDE RECORDS SUMMARY | ~2020-03-05 | XMS | Encounter Summary ---
Demographics + + + | Address | [address] | | | [place] [address] | + + + | Home Phone | | + + + | Preferred Language | Unknown | + + + | Marital Status | | + + + | Gnosticist Affiliation | 1013 | + + + | Race | Unknown | + + + | Ethnic Group | Unknown | + + + Author + + + | Author | [facility] | | | and [place]rit[place] | + + + | Organization | [facility] | | | and [...] Team Providers + +------+ + | Care Development Technologist Name | Role | Phone | + +------+ + | Oxana Nye | PCP | | + +------+ + Encounter Details +--------+ + + + + | Date | Type | Department | Care Team | Description | +--------+ + + + + | 07/06/ | Hospital | [facility] | Catrachoconstance, | 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 | MED CTR XRAY [address] | [address] | lumbar region | | | | [place] | [address] | without myelopathy | | | | [place] [address] | [place] [address] | or radiculopathy | | | | [phone] | [phone] | (Primary Dx); | | | | | | Chronic right-sided | | | | | 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 | [place] | [phone] | | [facility] | | [address] | | | - IMAGING | | [...] | | | | | Other, ONCE, richie 07/06/16 at 1115, | | AM PDT | | | | | For 1 dose, Radiology | | | | | | + +--------+ +-------+------+------+ +---+---+ | | | +---+---+ + +-------+ +------+---+---+ | lidocaine 1% injection 1 mL 1 | Given | 07/06/20 | 1 mL | | | | mL, Other, ONCE, e 07/06/16 at | | 16 11:03 | | | | | 1115, For 1 dose, Radiology | | AM PDT | | | | + +-------+ +------+---+---+ +---+---+ | | | +---+---+ + +-------+ +--------+---+---+ | lidocaine buffered 1% injection | Given | 07/06/20 | 10 mLs | | | | 10 mL 10 mL, Other, ONCE, Tue | | 16 10:58 | | | [...]
--- OUTSIDE RECORDS SUMMARY | ~2020-03-05 | XMS | Encounter Summary ---
Demographics + + + | Address | [address] | | | [place] [address] | + + + | Home Phone [...] + + | 07/12/ | Telephone | [facility] | Spenser, | Results | | 2016 | | PHYSIATRY [address] | [address] | | | | | [address] | [address] | | | | | [place], [place] | [place] [address] | | | | | [address] | [phone] | | | | | [phone] | | | +--------+ + + + [...] [place] | | | | | | [address] | | | | | | | | +--------+---------+ + + + | 04/03/ | Office | Cardiology | Zuleyka Castillo DO | | | 2020 | Visit | | [address] | | | | | | [place] | | | | | | [address] | | | | | | | | +--------+---------+ + + + documented as of this encounter Visit Diagnoses Not on filedocumented in this encounter"
--- OUTSIDE RECORDS SUMMARY | ~2020-03-05 | XMS | Encounter Summary ---
Demographics + + + | Address | [address] | | | [place] [address] | + + + | Home Phone [...] + +------+ + | Care Supply Chain Director Name | Role | Phone | [...] | | | | | | MD SURG | | | | | | | IMPLNT | | | | | | | NEUROELECT,E | | | | | | | PIDURAL MD | | | | | | | IMPLANT | | | | | | | NEUROSTIM/RE | | | | | | | CEIVER MD | | | | | | [...] + + | 08/03/ | Anesthesia | [facility] | Yojana Arellano CRNA | | | 2019 | Event [facility] | [address] | | | | | OPER[address] | [place] [address] | | | | | [address] | [phone] | | | | | [place], [place] | | | | | | [address] | | | | | | [phone] | | | +--------+ + + + [...] +----+---+ + + | | 0 | [place] | | | | 9 | 43-degrees [...] [address] | | eral | Antecubital; [id number] | Mikayla Marcial, | Gamal Whitney, | [...] [place] | | | | | | [address] | | | | | | | | +--------+---------+ + + + | 04/03/ | Office | Cardiology | Zuleyka Castillo DO | | | 2019 | Visit | | [address] | | | | | | [place] | | | | | | [address] | | | | | | | [...] - 08/03/2019 9:52 AM PDT Anesthesia Airway [id number]/4/2019 | | 9:33Preprocedure check: patient identified, oxygen, [...]
--- OUTSIDE RECORDS SUMMARY | ~2020-03-05 | XMS | Encounter Summary ---
Demographics + + + | Address | [address] | | | [place] [address] | + + + | Home Phone [...] Team Providers + +------+ + | Care Mussel Opener Name | Role | Phone | + [...] | | [address] | [place] [address] | (Primary Dx); DISC | | | | [place], [place] | [phone] | DISEASE, LUMBAR; | | | | [address] | | Back pain, | | | | [phone] | | unspecified back | | | [...] [place] | | | | | | [address] | | | | | | | | +--------+---------+ + + + | 04/03/ | Office | Cardiology | Zuleyka Castillo DO | | | 2019 | Visit | | [address] | | | | | | [place], [place] | | | | | | [address] | | | | | | | [...]
--- OUTSIDE RECORDS SUMMARY | ~2020-03-05 | XMS | Encounter Summary ---
Demographics + + + | Address | [address] | | | [place] [address] | + + + | Home Phone [...] Team Providers + +------+ + | Care Embroidery Finisher Name | Role | Phone | [...] | | 2012 | | [facility] | [address] | | | | | [address] | [facility] | | | | | [address] | [place] [address] | | | | | [address] [facility] floor | [phone] | | | | | [place], [place] | | | | | | [address] | | | | | | [phone] | | | +--------+ + + + [...]
--- OUTSIDE RECORDS SUMMARY | ~2020-03-05 | XMS | Encounter Summary ---
Demographics + + + | Address | [address] | | | [place] [address] | + + + | Home Phone [...] Team Providers + +------+ + | Care Sheep Farmer Name | Role | Phone | + +------+ + | Miquel Calhoun MD | PCP | | + +------+ + Encounter Details +--------+ + + + + | Date | Type | Department | Care Team | Description | +--------+ + + + + | 11/14/ | Hospital | [facility] | Earnest Acosta MD | Hypothyroid; History | | 2013 - | Encounter | [facility]ICAL [facility]ENTER | [address] | of oral aphthous | | | | CLINICAL DECISION | [address], | ulcers; Anemia, | | | | [address] | [place] [address] | unspecified; | | 2013 | | [place], [place] | [phone] | Aspiration pneumonia | | | | [phone] | | ([facility]); COPD | | | | [phone] | | (chronic obstructive | | | | | | pulmonary disease) | | | | | | ([facility]); Generalized | | | | | [...] as of this encounter Discharge Summaries Fran Eddy MD - 11/19/2013 7:21 PM PST Discharge Summaries by Fran Eddy MD at 11/19/131920 Author: Fran Eddy MD Service: Hospitalist Author Type: Physician Filed: 11/27/13 1140 Date of Service: 11/19/131920 Status: Signed Casing Tester: Fran Eddy MD (Physician) Related Notes: Original Note by Fran Eddy MD (Physician) filed at 11/20/13 1418 Patient ID: Ronald Torrestyfawthrop [id number] 68 y.o. 1945 Admit date: 11/14/2013 Discharge [...] - 99 mg/dL Final Testing performed at [facility], [address] [place] [address] BUN Date Value Range Status 11/19/2013 12 8 - 25 mg/dL Final Testing performed at [facility], [address] [place] [address] CREATININE Date Value Range Status 11/19/2013 0.80 0.50 - 1.00 mg/dL Final Testing performed at [facility], [address] [place] [address] BUN/CREAT Date Value Range Status 11/19/2013 15 Final Testing performed at [facility], [address] [place] [address] TOTAL PROTEIN Date Value Range Status 11/17/2013 5.2* 6.3 - 8.2 g/dL Final Testing performed at [address] [address] GLOBULIN Date Value Range Status 11/17/2013 2.1 1.3 - 4.9 g/dL Final Testing performed at [address] [address] TBIL Date Value Range Status 11/17/2013 0.6 0.1 - 1.5 mg/dL Final Testing performed at [address] [address] ALT Date Value Range Status 11/17/2013 21 10 - 65 U/L Final Testing performed at [facility], [address] [place] [address] AST Date Value Range Status 11/17/2013 19 10 - 45 U/L Final Testing performed at [address] [address] SODIUM Date Value Range Status 11/19/2013 133* 135 - 143 mmol/L Final Testing performed at [address] [address] POTASSIUM Date Value Range Status 11/19/2013 3.9 3.5 - 4.9 mmol/L Final Testing performed at [facility], [address] [place] [address] CHLORIDE Date Value Range Status 11/19/2013 101 99 - 109 mmol/L Final Testing performed at [facility], [address] [place] [address] CO2 Date Value Range Status 11/19/2013 24 23 - 32 mmol/L Final Testing performed at [facility], [address] [place] [address] ANION GAP AGAP Date Value Range Status 11/19/2013 12 5 - 20 mmol/L Final Testing performed at [facility], [address] [place] [address] X-ray Lumbar Spine Limited 2-3 Views 11/18/2013 [...] PM Ct Head Without Contrast 11/14/2013 RONALD BUTLER [address] HEAD WO [...] above. X-ray Chest 1 View 11/16/2013 RONALD BUTLER XR CHEST 1 VIEW 11/16/2013 6:21 AM [...] to distal superior vena cava. 11/14/2013 RONALD BUTLER XR CHEST 1 VIEW 11/14/2013 8:56 PM [...] Cardiac Adult Limited 11/15/2013 Patient Name: RONALD BUTLER Date of : 1945 Performing Physician: Finesse Nunez MD INDICATIONS altered mental status, copd CONCLUSIONS [...] m/s Sonogr apher: AB Authenticated by: Finesse Nunez MD Report Date/Time: 11-15-2013 18:08:31 11/15/2013 1. [...] the emergency department, who was admitted to [facility] on November 14, 2013, when she was found to be unresponsive by EMS and thought to be secondary to Flexeril overdose and alcohol intoxication, and alcohol level was more than 300 , and patient was found to be hypotensive. Hence, she was intubated and brought to the [facility] from outside hospital and was started on dopamine and norepinephri ne and Tylenol level was checked, which was 44, for which she was put on acetylcysteine prot ocol and was transferred to medical floor on November 15, 2013, and Dr. Moore from psychia tric service was consulted after patient stabilized and she was taken to [facility] under Dr. Diana's care. 2. Chronic back pain, for which patient was discharged to [facility] on [place] in p.r.n. 3. Aphthous ulcers. [...] rash noted. No erythema. No pallor. Disposition: [facility] in patient psychiatric facility Patient Instructions: [...] file for this visit. Miquel Calhoun MD [address] [place] [address] In 1 week Signed: FRAN EDDY 11/19/2013 7:21 PM documented in this en [...] 11/19/132053 Date of Service: 11/19/132029 Status: Signed Casing Tester: Ruby Chávez RN (Registered Nurse) Pt currently on psychiatric hold; Transport here to take pt to [facility]. Pt complains of yessica n; Given Ultram (See MAR) VSS; Afebrile; No SOB. Nurse to nurse given to [facility]. Pt dc'd by bebo. Ruby Chávez 11/19/2013 Fran Porter MD - 11/19/2013 3:24 PM PSTFormatting of this note might be different from the or iginal. Progress Notes by Fran Eddy MD at 11/19/131523 Author: Fran Eddy MD Service: Hospitalist Author Type: Physician Filed: 11/19/131535 Date of Service: 11/19/131523 Status: Addendum Casing Tester: Fran Eddy MD (Physician) Related Notes: Original Note by Fran Eddy MD (Physician) filed at 11/19/13 1535 [facility] Service: Hospitalist Progress Note Ronald Kowthrleighann 68 y.o. [id number] 306/306-2 female [facility] Day: LOS: 5 days Patient Summary: .A 68-year-old female with past medical history of depression with m ultiple suicide attempts in the past, history of COPD, which she attributes to paint inhalat ion, history of anxiety, restless leg syndrome, GERD, diabetes mellitus type 2, diet control led, hypothyroidism, who was admitted to [facility] on the November 14, when the patient was found to be unresponsive by EMS and thought to be secondary to Fle xeril overdose and alcohol intoxication as her alcohol level was more than 300. The patient was found to be hypertensive, hence she was intubated and brought to the [facility] where she was put on dopamine, norepinephrine, [...] by PCR (TAT 3 hr in house) [[id number]] Collected:11/19/13 0703 Specimen Information:Stool / Stool Updated:11/19/13806 Toxigenic C Difficile NEGATIVE 027 NAP1 BI 027 NAP1 BI PRESUMPTIVE NEGATIVE Magnesium [[id number]] Collected:11/19/13424 MAGNESIUM 2.2 mg/dL Updated:11/19/13806 Phosphorus [[id number]] Collected:11/19/13424 PHOSPHORUS 4.0 mg/dL Updated:11/19/13806 Basic metabolic panel [[id number]] (Abnormal) Collected:11/19/13424 Specimen Information:Blood Updated:11/19/13 0544 SODIUM 133 (L) mmol/L POTASSIUM 3.9 mmol/L CHLORIDE 101 mmol/L CO2 24 mmol/L ANION GAP AGAP 12 mmol/L GLUCOSE 108 (H) mg/dL BUN 12 mg/dL CREATININE 0.80 mg/dL BUN/CREAT 15 CALCIUM 9.2 mg/dL EGFR >60 mL/min/1.73m2 CBC w/auto diff (reflex to manual) [[id number]] (Abnormal) Collected:11/19/13 0425 Specimen Information:Blood Updated:11/19/13 0540 [...] K/uL MORPHOLOGY Fecal occult blood (in house) [[id number]] Collected:11/19/13 0146 Specimen Information:Stool / Stool Updated:11/19/13 0217 Fecal Occult Blood NEGATIVE Urine culture [[id number]] Collected:11/17/13 1013 Specimen Information:Urine / Urine, Catheter Updated:11/18/13 1710 Specimen Description CATHETERIZED URINE Specimen Description Result: Testing performed at [facility];[address] [place] [address] CULTURE NO GROWTH CULTURE Result: Testing performed at [facility], [address] [place] [address] REPORT STATUS 11/18/2013 FINAL Blood culture, 1 of 2 [[id number]] Collected:11/17/13 1042 Specimen Information:Blood / Blood Updated:11/18/13 1451 Specimen Description BLOOD Specimen Description Result: Testing performed at [facility];[address] [place] [address] SPECIAL REQUESTS Result: REPEAT TEST USING ALTERNATE ASSAYED CONTROL MATERIAL SPECIAL REQUESTS Result: Testing performed at [facility];[address] [place] [address] CULTURE NO GROWTH AT THIS TIME CULTURE Result: Testing performed at [facility], [address] [place] [address] REPORT STATUS PENDING Blood culture, 2 of 2 [[id number]] Collected:11/17/13 1050 Specimen Information:Blood / Blood Updated:11/18/13 1451 Specimen Description BLOOD Specimen Description Result: Testing performed at [facility];[address] [place] [address] SPECIAL REQUESTS PICC LINE SPECIAL REQUESTS Result: Testing performed at [facility];[address] [place] [address] CULTURE NO GROWTH AT THIS TIME CULTURE Result: Testing performed at [facility], [address] [place] [address] REPORT STATUS PENDING Sputum culture [[id number]] Collected:11/17/13 1153 Specimen Information:Sputum / Sputum Updated:11/18/13 1428 Specimen Description SPUTUM Specimen Description Result: Testing performed at [facility];[address] [place] [address] GRAM STAIN GREATER THAN 10 WBCS/LPF GRAM STAIN LESS THAN 10 SEC/LPF GRAM STAIN NO ORGANISMS SEEN GRAM STAIN Result: Testing performed at [facility], [address] [place] [address] CULTURE 1+ NORMAL UPPER RESPIRATORY CURTIS CULTURE Result: Testing performed at [facility], [address] [place] [address] REPORT STATUS PENDING Magnesium [[id number]] Collected:11/18/13 0600 Specimen Information:Blood Updated:11/18/13 1104 MAGNESIUM 2.1 mg/dL Phosphorus [[id number]] Collected:11/18/13 0600 Specimen Information:Blood Updated:11/18/13 1104 PHOSPHORUS 3.8 mg/dL Basic metabolic panel [[id number]] (Abnormal) Collected:11/18/13 0600 Specimen Information:Blood Updated:11/18/13 0716 SODIUM 135 mmol/L POTASSIUM 4.2 mmol/L CHLORIDE 104 mmol/L CO2 24 mmol/L ANION GAP AGAP 11 mmol/L GLUCOSE 110 (H) mg/dL BUN 11 mg/dL CREATININE 0.73 mg/dL BUN/CREAT 15 CALCIUM 9.0 mg/dL EGFR >60 mL/min/1.73m2 TSH [[id number]] Collected:11/18/13 0600 Specimen Information:Blood Updated:11/18/13 0713 TSH 4.28 uIU/mL CBC w/auto diff (reflex to manual) [[id number]] (Abnormal) Collected:11/18/13 0600 Specimen Information:Blood Updated:11/18/13 0647 [...] K/uL BASOPHILS ABS 0.0 K/uL Urine culture [[id number]] Collected:11/16/13 0951 Specimen Information:Urine / Urine, Clean Catch Updated:11/17/13 1618 Specimen Description CLEAN CATCH URINE Specimen Description Result: Testing performed at [address] [address] CULTURE NO GROWTH CULTURE Result: Testing performed at [facility], [address] [place] [address] REPORT STATUS 11/17/2013 FINAL Magnesium [[id number]] (Abnormal) Collected:11/16/13 0407 Specimen Information:Blood Updated:11/17/13 1141 MAGNESIUM 1.6 (L) mg/dL Phosphorus [[id number]] (Abnormal) Collected:11/16/13 0407 Specimen Information:Blood Updated:11/17/13 1141 PHOSPHORUS 1.7 (L) mg/dL Iron panel [[id number]] (Abnormal) Collected:11/17/1357 Specimen Information:Blood Updated:11/17/1318 IRON 31 ug/dL TIBC 155 (L) ug/dL IRON % SAT 20 % Vitamin B12 [[id number]] Collected:11/17/1357 Specimen Information:Blood Updated:11/17/1311 VITAMIN B12 417 pg/mL Folate [[id number]] Collected:11/17/1357 Specimen Information:Blood Updated:11/17/13710 FOLATE 17.7 ng/mL Ferritin [[id number]] Collected:11/17/13556 Specimen Information:Blood Updated:11/17/13 0711 FERRITIN 140 ng/mL Comprehensive metabolic panel [[id number]] (Abnormal) Collected:11/17/13 0557 Specimen Information:Blood Updated:11/17/13 0710 [...] mL/min/1.73m2 CBC w/auto diff (reflex to manual) [[id number]] (Abnormal) Collected:11/17/1357 Specimen Information:Blood Updated:11/17/13 0641 WBC [...] to distal superior vena cava. 11/14/2013 RONALD BUTLER XR CHEST 1 VIEW 11/14/2013 8:56 PM [...] Cardiac Adult Limited 11/15/2013 Patient Name: RONALD BUTLER Date of : 1945 Performing Physician: Finesse Nunez MD INDICATIONS altered mental status, copd CONCLUSIONS [...] m/s Sonogr apher: AB Authenticated by: Finesse Nunez MD Report Date/Time: 11-15-2013 18:08:31 11/15/2013 1. [...] on advair and xopenox nebs prn FRAN EDDY MD 11/19/2013 onversion Transactio n, Provider Unknown - 11/19/2013 2:54 PM PST Case Management by ANGELO Lujan at 11/19/13 3384 Author: ANGELO Lujan Service: (none) Author Type: Meat Molder Filed: 11/19/13 9754 Date of Service: 11/19/13 3064 Status: Signed Casing Tester: ANGELO Lujan (Meat Molder) CM contacted Crisis Response Unit to inform [facility] that pt is now medically clear for MH eval uation. A DMHP will see pt in the hospital today for eval. CM spoke with IPR MD - he would like to reevaluate pt tomorrow to determine appropriateness for IPR. ANGELO Lujan Relay Record Clerk onver hiren Transaction, Provider Unknown - 11/19/2013 12:40 PM PST Progress Notes by Emi Donaldson PT at 11/19/13 1240 Author: Emi Donaldson PT Service: (none) Author Type: Physical Therapist Filed: 11/19/13 1313 Date of Service: 11/19/13 1240 Status: Signed Casing Tester: Emi Donaldson PT (Physical Therapist) 11/19/13 1240 [...] and I have a bladder appointment at [facility] I need to take care of otherwise [...] Date of Service: 11/19/13 1020 Status: Signed Casing Tester: Emi Donaldson PT (Physical Therapist) 11/19/13 1020 PT Last Visit PT Received On 11/19/13 Requires PT Follow Up Unavailable (getting bed bath, f/u later today for PT as schedule allows) onver hiren Transaction, Provider Unknown - 11/19/2013 4:29 AM PST Nurse Progress Note by Kala Peña RN at 11/19/13 5479 Author: Kala Peña RN Service: (none) Author Type: Registered Nurse Filed: 11/19/13 8353 Date of Service: 11/19/13 0429 Status: Signed Casing Tester: Kala Peña, RN (Registered Nurse) Pt slept [...] the or iginal. Progress Notes by Fran Eddy MD at 11/18/131807 Author: Fran Eddy MD Service: Hospitalist Author Type: Physician Filed: 11/18/131826 Date of Service: 11/18/131807 Status: Signed Casing Tester: Fran Eddy MD (Physician) [facility] Service: Hospitalist Progress Note Ronald Kowtjanene 68 y.o. [id number] 306/306-2 female [facility] Day: LOS: 4 days Patient Summary: .A 68-year-old female with past medical history of depression with m ultiple suicide attempts in the past, history of COPD, which she attributes to paint inhalat ion, history of anxiety, restless leg syndrome, GERD, diabetes mellitus type 2, diet control led, hypothyroidism, who was admitted to [facility] on the November 14, when the patient was found to be unresponsive by EMS and thought to be secondary to Fle xeril overdose and alcohol intoxication as her alcohol level was more than 300. The patient was found to be hypertensive, hence she was intubated and brought to the [facility] where she was put on dopamine, norepinephrine, [...] mood is better after she talked with Cook Chili ,denied any suicidal ideation /thoughts at this moment . Patient c/o generalized weakness and evaluated by PT who recommended SNF and [facility]. She denied any chest pain, cough,sob ,no [...] Procedure Component Value Units Date/Time Urine culture [[id number]] Collected:11/17/13 1013 Specimen Information:Urine / Urine, Catheter Updated:11/18/13 1710 Specimen Description CATHETERIZED URINE Specimen Description Result: Testing performed at [facility];[address];[place] [address] CULTURE NO GROWTH CULTURE Result: Testing performed at [facility], [address] [place] [address] REPORT STATUS 11/18/2013 FINAL Blood culture, 1 of 2 [[id number]] Collected:11/17/13 1042 Specimen Information:Blood / Blood Updated:11/18/13 1451 Specimen Description BLOOD Specimen Description Result: Testing performed at [facility] [address] [address] SPECIAL REQUESTS Result: REPEAT TEST USING ALTERNATE ASSAYED CONTROL MATERIAL SPECIAL REQUESTS Result: Testing performed at [facility];[address] [place] [address];[place] [address] CULTURE NO GROWTH AT THIS TIME CULTURE Result: Testing performed at [facility], [address] [place] [address] REPORT STATUS PENDING Blood culture, 2 of 2 [[id number]] Collected:11/17/13 1050 Specimen Information:Blood / Blood Updated:11/18/13 1451 Specimen Description BLOOD Specimen Description Result: Testing performed at [facility] [address] [address] SPECIAL REQUESTS PICC LINE SPECIAL REQUESTS Result: Testing performed at [facility];[address];[place] [address] CULTURE NO GROWTH AT THIS TIME CULTURE Result: Testing performed at [facility], [address] [place] [address] REPORT STATUS PENDING Sputum culture [[id number]] Collected:11/17/13 1153 Specimen Information:Sputum / Sputum Updated:11/18/13 1428 Specimen Description SPUTUM Specimen Description Result: Testing performed at [facility];[address] [place] [address] GRAM STAIN GREATER THAN 10 WBCS/LPF GRAM STAIN LESS THAN 10 SEC/LPF GRAM STAIN NO ORGANISMS SEEN GRAM STAIN Result: Testing performed at [facility], [address] [place] [address] CULTURE 1+ NORMAL UPPER RESPIRATORY CURTIS CULTURE Result: Testing performed at [facility], [address] [place] [address] REPORT STATUS PENDING Magnesium [[id number]] Collected:11/18/13 0600 Specimen Information:Blood Updated:11/18/13 1104 MAGNESIUM 2.1 mg/dL Phosphorus [[id number]] Collected:11/18/13 0600 Specimen Information:Blood Updated:11/18/13 1104 PHOSPHORUS 3.8 mg/dL Basic metabolic panel [[id number]] (Abnormal) Collected:11/18/13 0600 Specimen Information:Blood Updated:11/18/13 0716 SODIUM 135 mmol/L POTASSIUM 4.2 mmol/L CHLORIDE 104 mmol/L CO2 24 mmol/L ANION GAP AGAP 11 mmol/L GLUCOSE 110 (H) mg/dL BUN 11 mg/dL CREATININE 0.73 mg/dL BUN/CREAT 15 CALCIUM 9.0 mg/dL EGFR >60 mL/min/1.73m2 TSH [[id number]] Collected:11/18/13 06 Specimen Information:Blood Updated:11/18/13 0713 TSH 4.28 uIU/mL CBC w/auto diff (reflex to manual) [[id number]] (Abnormal) Collected:11/18/13 06 Specimen Information:Blood Updated:11/18/13 0647 [...] K/uL BASOPHILS ABS 0.0 K/uL Urine culture [[id number]] Collected:11/16/13 0951 Specimen Information:Urine / Urine, Clean Catch Updated:11/17/13 1618 Specimen Description CLEAN CATCH URINE Specimen Description Result: Testing performed at [facility];[address] [place] [address] CULTURE NO GROWTH CULTURE Result: Testing performed at [facility], [address] [place] [address] REPORT STATUS 11/17/2013 FINAL Magnesium [[id number]] (Abnormal) Collected:11/16/13 0407 Specimen Information:Blood Updated:11/17/13 1141 MAGNESIUM 1.6 (L) mg/dL Phosphorus [[id number]] (Abnormal) Collected:11/16/13 0407 Specimen Information:Blood Updated:11/17/13 1141 PHOSPHORUS 1.7 (L) mg/dL Iron panel [[id number]] (Abnormal) Collected:11/17/13556 Specimen Information:Blood Updated:11/17/1318 IRON 31 ug/dL TIBC 155 (L) ug/dL IRON % SAT 20 % Vitamin B12 [[id number]] Collected:11/17/13556 Specimen Information:Blood Updated:11/17/1311 VITAMIN B12 417 pg/mL Folate [[id number]] Collected:11/17/13556 Specimen Information:Blood Updated:11/17/13710 FOLATE 17.7 ng/mL Ferritin [[id number]] Collected:11/17/13556 Specimen Information:Blood Updated:11/17/1311 FERRITIN 140 ng/mL Comprehensive metabolic panel [[id number]] (Abnormal) Collected:11/17/13556 Specimen Information:Blood Updated:11/17/13709 SODIUM 134 [...] mL/min/1.73m2 CBC w/auto diff (reflex to manual) [[id number]] (Abnormal) Collected:11/17/13556 Specimen Information:Blood Updated:11/17/13640 WBC 7.8 [...] K/uL BASOPHILS ABS 0.0 K/uL MORPHOLOGY Potassium [[id number]] Collected:11/16/13 1112 Specimen Information:Blood Updated:11/16/13 1133 POTASSIUM 3.6 mmol/L Sputum culture [[id number]] Collected:11/14/13 2055 Specimen Information:Sputum / Tracheal Aspirate Updated:11/16/13 1018 Specimen Description TRACHEAL ASPIRATE Specimen Description Result: Testing performed at [facility];[address] [place] [address];[place] [address] GRAM STAIN GREATER THAN 10 WBCS/LPF GRAM STAIN LESS THAN 10 SEC/LPF GRAM STAIN 2+ GRAM POSITIVE COCCI GRAM STAIN 1+ GRAM POSITIVE RODS GRAM STAIN Result: Testing performed at [address] [address] CULTURE 2+ NORMAL UPPER RESPIRATORY CURTIS CULTURE Result: Testing performed at [facility], [address] [place] [address] REPORT STATUS 11/16/2013 FINAL Acetaminophen level [[id number]] (Abnormal) Collected:11/16/13 0755 Specimen Information:Blood Updated:11/16/13 0828 ACETAMINOPHEN 3.7 (L) ug/mL CBC w/auto diff (reflex to manual) [[id number]] (Abnormal) Collected:11/16/13 0407 Specimen Information:Blood Updated:11/16/13 0503 [...] BASOPHILS ABS 0.0 K/uL Basic metabolic panel [[id number]] (Abnormal) Collected:11/16/13406 Specimen Information:Blood Updated:11/16/13439 SODIUM 143 mmol/L POTASSIUM 3.1 (L) mmol/L CHLORIDE 109 mmol/L CO2 27 mmol/L ANION GAP AGAP 10 mmol/L GLUCOSE 78 mg/dL BUN 7 (L) mg/dL CREATININE 0.77 mg/dL BUN/CREAT 9 CALCIUM 7.8 (L) mg/dL EGFR >60 mL/min/1.73m2 Acetaminophen level [[id number]] (Abnormal) Collected:11/16/13406 Specimen Information:Blood Updated:11/16/13439 ACETAMINOPHEN 4.5 (L) ug/mL Acetaminophen level [[id number]] (Abnormal) Collected:11/16/136 Specimen Information:Blood Updated:11/16/138 ACETAMINOPHEN 5.2 [...] 11/15/2013 Ct Head Without Contrast 11/14/2013 RONALD BUTLER [address] HEAD WO [...] above. X-ray Chest 1 View 11/16/2013 RONALD BUTLER XR CHEST 1 VIEW 11/16/2013 6:21 AM [...] to distal superior vena cava. 11/14/2013 RONALD BUTLER XR CHEST 1 VIEW 11/14/2013 8:56 PM [...] Cardiac Adult Limited 11/15/2013 Patient Name: RONALD BUTLER Date of : 1945 Performing Physician: Finesse Nunez MD INDICATIONS altered mental status, copd CONCLUSIONS [...] m/s Sonogr apher: AB Authenticated by: Finesse Nunez MD Report Date/Time: 11-15-2013 18:08:31 11/15/2013 1. [...] on advair and xopenox nebs prn FRAN EDDY MD 11/18/2013 onversion Transactio n, Provider Unknown - 11/18/2013 6:06 PM PST Progress Notes by Donita Tucker RN at 11/18/131805 Author: Donita Tucker RN Service: (none) Author Type: Registered Nurse Filed: 11/18/13 2896 Date of Service: 11/18/131805 Status: Signed Casing Tester: Donita Tucker RN (Registered Nurse) self contained behavior unit teacher at bedside, pt seeming uplifted by conversation with raspberry checker. PCC in and asked t hat this RN not remove cords, call-light cord and other items nearby pt as port captain had con tacted her regarding this RN's discussion that per policy and patients statements indicating that she intended to cause her self harm this RN felt it would be best to move items that s he could use to harm herself away from her after she finished speaking with the raspberry checker. Th is RN has increased rounding, line of site at RN station and port captain continues to be in pl suk[place]. Pt overall mood continue to be melancholy and tearful, but has not threatened to do chapito f harm since her discussion with the raspberry checker. Pt encouraged to express her emotions to staf f. Pt complains of diffuse pain, and desire to go to [place]. Pt medicated for pain per DEC. Wi ll continue to monitor closely.DONITA TUCKER RN onver hiren Transaction, Provider Unknown - 11/18/2013 2:59 PM PST Progress Notes by Franky Mcclain at 11/18/13 0220 Author: Franky Mcclain Service: (none) Author Type: Travel Registered Nurse Icu Filed: 11/18/13 0863 Date of Service: 11/18/13 0673 Status: Signed Casing Tester: Franky Mcclain (Travel Registered Nurse Icu) Received pt's request via RN for "someone [...] but now belongs to the "12 step sabianism" and [facility]. She states that [...] 12:08 PM PST Progress Notes by Donita Tucker RN at 11/18/13 1208 Author: Donita Tucker RN Service: (none) Author Type: Registered Nurse Filed: 11/18/13 1213 Date of Service: 11/18/13 1208 Status: Signed Casing Tester: Donita Tucker RN (Registered Nurse) Travel Registered Nurse Icu called to be with patient,, port captain at bedside. Pt indicating desire to harm her self. Pt states that she is hopeless and that she wants to . All items that could be used for self harm removed. Will continue to monitor closely.DONITA TUCKER RN onver hiren Transaction, Provider Unknown - 11/18/2013 6:13 AM PST Nurse Progress Note by Kala Peña RN at 11/18/13 0613 Author: Kala Peña RN Service: (none) Author Type: Registered Nurse Filed: 11/18/13 0615 Date of Service: 11/18/13612 Status: Signed Casing Tester: Kala Peña RN (Registered Nurse) Pt slept [...] 11/17/135 Date of Service: 11/17/131823 Status: Signed Casing Tester: Dick De Santiago RN (Registered Nurse) Pt has been in and out of tearful expression most of the day. As her cognition came back, she informed me that she takes requip regularly for her Parkinsons. Dr Eddy was notified a nd we started requip [...] Date of Service: 11/17/13 1341 Status: Signed Casing Tester: Sharif Romero (Travel Registered Nurse Icu) I visited with Pt to assess her [...] Date of Service: 11/17/13 113 Status: Signed Casing Tester: Emi Donaldson PT (Physical Therapist) 11/17/13 1133 [...] Notes by Emi Donaldson PT at 11/17/13 6697 Author: Emi Donaldson PT Service: (none) Author Type: Physical Therapist Filed: 11/17/13 6778 Date of Service: 11/17/13 1133 Status: Signed Casing Tester: Emi Donaldson PT (Physical Therapist) 11/17/13 1133 [...] Recommendations SNF Equipment Recommended (pending improvement, lift biomass facilitator c/s) Prior Function Level of [place] Modified independent with functional mobility;Modified independent wi [...] the or iginal. Progress Notes by Fran Eddy MD at 11/17/13 1002 Author: Fran Eddy MD Service: Hospitalist Author Type: Physician Filed: 11/17/13 1746 Date of Service: 11/17/13 1002 Status: Signed Casing Tester: Fran Eddy MD (Physician) Related Notes: Original Note by Fran Eddy MD (Physician) filed at 11/17/13 1016 [facility] Service: Hospitalist Progress Note Ronald Kowthrleighann 68 y.o. [id number] 306/306-2 female [facility] Day: LOS: 3 days Patient Summary: .A 68-year-old female with past medical history of depression with m ultiple suicide attempts in the past, history of COPD, which she attributes to paint inhalat ion, history of anxiety, restless leg syndrome, GERD, diabetes mellitus type 2, diet control led, hypothyroidism, who was admitted to [facility] on the November 14 014, when the patient was found to be unresponsive by EMS and thought to be secondary to Fle xeril overdose and alcohol intoxication as her alcohol level was more than 300. The patient was found to be hypertensive, hence she was intubated and brought to the [facility] where she was put on dopamine, norepinephrine, [...] commands . I received her records from [facility]. The patient's 2 sons live in [place], and she does not know the phone [...] Procedure Component Value Units Date/Time Iron panel [[id number]] (Abnormal) Collected:11/17/13556 Specimen Information:Blood Updated:11/17/13717 IRON 31 ug/dL TIBC 155 (L) ug/dL IRON % SAT 20 % Vitamin B12 [[id number]] Collected:11/17/13556 Specimen Information:Blood Updated:11/17/13710 VITAMIN B12 417 pg/mL Folate [[id number]] Collected:11/17/13556 Specimen Information:Blood Updated:11/17/13710 FOLATE 17.7 ng/mL Ferritin [[id number]] Collected:11/17/13556 Specimen Information:Blood Updated:11/17/13710 FERRITIN 140 ng/mL Comprehensive metabolic panel [[id number]] (Abnormal) Collected:11/17/13556 Specimen Information:Blood Updated:11/17/13709 SODIUM 134 [...] mL/min/1.73m2 CBC w/auto diff (reflex to manual) [[id number]] (Abnormal) Collected:11/17/13556 Specimen Information:Blood Updated:11/17/13 06 WBC [...] BASOPHILS ABS 0.0 K/uL MORPHOLOGY Urine culture [[id number]] Collected:11/16/13 0951 Specimen Information:Urine / Urine, Clean Catch Updated:11/16/13 1144 Potassium [[id number]] Collected:11/16/13 1112 Specimen Information:Blood Updated:11/16/13 1133 POTASSIUM 3.6 mmol/L Sputum culture [[id number]] Collected:11/14/13 2055 Specimen Information:Sputum / Tracheal Aspirate Updated:11/16/13 1018 Specimen Description TRACHEAL ASPIRATE Specimen Description Result: Testing performed at [facility];[address] [place] [address];[place] [address] GRAM STAIN GREATER THAN 10 WBCS/LPF GRAM STAIN LESS THAN 10 SEC/LPF GRAM STAIN 2+ GRAM POSITIVE COCCI GRAM STAIN 1+ GRAM POSITIVE RODS GRAM STAIN Result: Testing performed at [address] [address] CULTURE 2+ NORMAL UPPER RESPIRATORY CURTIS CULTURE Result: Testing performed at [facility], [address] [place] [address] REPORT STATUS 11/16/2013 FINAL Acetaminophen level [[id number]] (Abnormal) Collected:11/16/13 0755 Specimen Information:Blood Updated:11/16/13 0828 ACETAMINOPHEN 3.7 (L) ug/mL Magnesium [[id number]] Collected:11/16/13 0407 Specimen Information:Blood Updated:11/16/13 0800 Phosphorus [[id number]] Collected:11/16/13 0407 Specimen Information:Blood Updated:11/16/13 0800 CBC w/auto diff (reflex to manual) [[id number]] (Abnormal) Collected:11/16/13 0407 Specimen Information:Blood Updated:11/16/13 0503 [...] BASOPHILS ABS 0.0 K/uL Basic metabolic panel [[id number]] (Abnormal) Collected:11/16/13 0407 Specimen Information:Blood Updated:11/16/13 0440 SODIUM 143 mmol/L POTASSIUM 3.1 (L) mmol/L CHLORIDE 109 mmol/L CO2 27 mmol/L ANION GAP AGAP 10 mmol/L GLUCOSE 78 mg/dL BUN 7 (L) mg/dL CREATININE 0.77 mg/dL BUN/CREAT 9 CALCIUM 7.8 (L) mg/dL EGFR >60 mL/min/1.73m2 Acetaminophen level [[id number]] (Abnormal) Collected:11/16/13 0407 Specimen Information:Blood Updated:11/16/13 0440 ACETAMINOPHEN 4.5 (L) ug/mL Acetaminophen level [[id number]] (Abnormal) Collected:11/16/13 0036 Specimen Information:Blood Updated:11/16/13 0058 ACETAMINOPHEN 5.2 (L) ug/mL Troponin I [[id number]] (Abnormal) Collected:11/15/13 1602 Specimen Information:Blood Updated:11/15/13 1651 TROPONIN I 0.208 (H) ng/mL CK MB [[id number]] Collected:11/15/13 1602 MMB 3.4 ng/mL Updated:11/15/13 1651 CK-MB Index 2.4 CPK [[id number]] Collected:11/15/13 1602 Specimen Information:Blood Updated:11/15/13 1651 CPK 140 U/L Acetaminophen level [[id number]] Collected:11/15/13 1602 Specimen Information:Blood Updated:11/15/13 1651 ACETAMINOPHEN 10.0 ug/mL POCT glucose [[id number]] (Abnormal) Collected:11/14/13 1920 GLUCOSE,POC SCREEN 154 (H) mg/dL Updated:11/15/13 1317 Acetaminophen level [[id number]] (Abnormal) Collected:11/15/13 1132 Specimen Information:Blood Updated:11/15/13 1207 ACETAMINOPHEN 5.5 (L) ug/mL Basic metabolic panel [[id number]] (Abnormal) Collected:11/15/13 1132 Specimen Information:Blood Updated:11/15/13 1207 SODIUM 144 (H) mmol/L POTASSIUM 3.9 mmol/L CHLORIDE 114 (H) mmol/L CO2 20 (L) mmol/L ANION GAP AGAP 14 mmol/L GLUCOSE 153 (H) mg/dL BUN 8 mg/dL CREATININE 0.92 mg/dL BUN/CREAT 9 CALCIUM 7.4 (L) mg/dL EGFR >60 mL/min/1.73m2 CPK [[id number]] Collected:11/15/13850 Specimen Information:Blood Updated:11/15/1325 CPK 75 U/L Troponin I [[id number]] (Abnormal) Collected:11/15/13850 Specimen Information:Blood Updated:11/15/1325 TROPONIN I 0.325 (H) ng/mL CK MB [[id number]] Collected:11/15/13850 MMB 3.4 ng/mL Updated:11/15/13 0925 CK-MB Index 4.5 Acetaminophen level [[id number]] (Abnormal) Collected:11/15/13850 Specimen Information:Blood Updated:11/15/13 0925 ACETAMINOPHEN 6.3 (L) ug/mL POCT glucose [[id number]] Collected:11/15/13 0033 GLUCOSE,POC SCREEN 86 mg/dL Updated:11/15/13 0759 Osmolality [[id number]] (Abnormal) Collected:11/15/13 0408 Specimen Information:Blood Updated:11/15/13 0701 OSMOLALITY,SERUM 316 (H) mOsm/kg Lactic acid, plasma [[id number]] (Abnormal) Collected:11/15/13 0532 Specimen Information:Blood Updated:11/15/13 0617 LACTIC ACID 2.5 (H) mmol/L CBC w/auto diff (reflex to manual) [[id number]] (Abnormal) Collected:11/15/138 Specimen Information:Blood Updated:11/15/13 0530 WBC [...] BASOPHILS ABS 0.0 K/uL MORPHOLOGY Troponin I [[id number]] (Abnormal) Collected:11/15/13407 Specimen Information:Blood Updated:11/15/13522 TROPONIN I 0.647 (HH) ng/mL CK MB [[id number]] Collected:11/15/13407 MMB 3.3 ng/mL Updated:11/15/13522 CK-MB Index 5.9 CPK [[id number]] Collected:11/15/13407 Specimen Information:Blood Updated:11/15/13521 CPK 56 U/L Comprehensive metabolic panel [[id number]] (Abnormal) Collected:11/15/13407 Specimen Information:Blood Updated:11/15/13521 SODIUM 148 [...] 61 U/L EGFR >60 mL/min/1.73m2 Acetaminophen level [[id number]] (Abnormal) Collected:11/15/13407 Specimen Information:Blood Updated:11/15/13521 ACETAMINOPHEN 9.9 (L) ug/mL POC arterial CG4+ [[id number]] (Abnormal) Collected:11/14/13 2347 pH, Art 7.141 (LL) Updated:11/14/13 2351 POC PCO2 40 mmHg POC p02 283 (H) mmHg POC LACTATE 3.7 (H) mmol/L POC HCO3 14 (L) mmol/L POC TCO2 15 (L) mEq/L POC BASE DEFICIT 15 (H) mmol/L POC S02 100 (H) % POC FIO2 70 % POC COMMENTS Tidal Volume = 500 Lactic acid, plasma [[id number]] (Abnormal) Collected:11/14/132116 Specimen Information:Blood Updated:11/14/132155 LACTIC ACID 3.4 (H) mmol/L Basic metabolic panel [[id number]] (Abnormal) Collected:11/14/132112 Specimen Information:Blood Updated:11/14/132149 SODIUM 143 mmol/L POTASSIUM 3.0 (L) mmol/L CHLORIDE 114 (H) mmol/L CO2 16 (L) mmol/L ANION GAP AGAP 16 mmol/L GLUCOSE 187 (H) mg/dL BUN 10 mg/dL CREATININE 0.79 mg/dL BUN/CREAT 13 CALCIUM 6.5 (L) mg/dL EGFR >60 mL/min/1.73m2 Phosphorus [[id number]] Collected:11/14/132112 Specimen Information:Blood Updated:11/14/132149 PHOSPHORUS 2.4 mg/dL Magnesium [[id number]] Collected:11/14/132112 Specimen Information:Blood Updated:11/14/132149 MAGNESIUM 1.7 mg/dL Hepatic function panel [[id number]] (Abnormal) Collected:11/14/132112 TOTAL PROTEIN 5.6 (L) g/dL Updated:11/14/132149 Albumin 3.1 (L) g/dL TBIL 0.2 mg/dL BILI, DIRECT <0.1 mg/dL ALK PHOS 76 U/L AST 75 (H) U/L ALT 67 (H) U/L Acetaminophen level [[id number]] (Abnormal) Collected:11/14/132112 Specimen Information:Blood Updated:11/14/132149 ACETAMINOPHEN 44.4 (H) ug/mL Ionized calcium,to [facility] [[id number]] (Abnormal) Collected:11/14/132114 Specimen Information:Blood Updated:11/14/132145 CA++ 0.99 (L) mmol/L pH 7.179 (L) aPTT [[id number]] Collected:11/14/132112 Specimen Information:Blood Updated:11/14/132144 APTT 26 seconds Protime-INR [[id number]] Collected:11/14/132112 Specimen Information:Blood Updated:11/14/132144 INR 1.0 MRSA by PCR [[id number]] Collected:11/14/131929 Specimen Information:Nasopharyngeal / Nasopharyngeal Culture Updated:11/14/132130 SOURCE NARES(NOSE) RESULT NEGATIVE CBC w/auto diff (reflex to manual) [[id number]] (Abnormal) Collected:11/14/132112 Specimen Information:Blood Updated:11/14/132130 WBC 12.2 [...] ABS 0.0 K/uL Rapid drug screen, urine [[id number]] (Abnormal) Collected:11/14/131929 Specimen Information:Urine / Urine, Catheter Updated:11/14/132036 THC NEGATIVE PCP NEGATIVE COCAINE NEGATIVE METHAMPHETAMINES NEGATIVE OPIATES PRESUMPTIVE POSITIVE (A) AMPHETAMINE NEGATIVE BENZODIAZEPINE NEGATIVE TRICYCLIC ANTIDEPRESS PRESUMPTIVE POSITIVE (A) METHADONE NEGATIVE BARBITUATES NEGATIVE Urine microscopic only [[id number]] (Abnormal) Collected:11/14/131929 WBC 1-5 /hpf Updated:11/14/132035 RBC 0-2 /hpf EPITHELIAL NONE SEEN /lpf BACTERIA TRACE (A) Urinalysis (reflex to micro) [[id number]] (Abnormal) Collected:11/14/131929 Specimen Information:Urine / Urine, Catheter Updated:11/14/132035 COLOR UA OTHER CLARITY CLEAR Specific [place], UA 1.004 LEUKOCYTE ESTERASE TRACE (A) NITRITE [...] 11/15/2013 Ct Head Without Contrast 11/14/2013 RONALD TORRESKATARINAWTHRLEIGHANN [address] HEAD WO [...] AM X-ray Chest Ap Only 11/14/2013 RONALD BUTLER XR CHEST 1 VIEW 11/14/2013 11:33 PM [...] to distal superior vena cava. 11/14/2013 RONALD BUTLER XR CHEST 1 VIEW 11/14/2013 8:56 PM [...] Cardiac Adult Limited 11/15/2013 Patient Name: RONALD BUTLER Date of : 1945 Performing Physician: Finesse Nunez MD INDICATIONS altered mental status, copd CONCLUSIONS [...] m/s Sonogr apher: AB Authenticated by: Finesse Nunez MD Report Date/Time: 11-15-2013 18:08:31 11/15/2013 1. [...] to patient,doing exam and revising records from [facility]. FRAN EDDY MD 11/17/2013 onversion Transactio n, Provider Unknown - 11/17/2013 4:27 AM PST Nurse Progress Note by Jazzy Patel RN at 11/17/137 Author: Jazzy Patel RN Service: (none) Author Type: Registered Nurse Filed: 11/17/13 0429 Date of Service: 11/17/13426 Status: Signed Casing Tester: Jazzy Patel RN (Registered Nurse) Pt currently sleeping. 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 Unable to score CIWA a s patient [...] the or iginal. Progress Notes by Fran Eddy MD at 11/16/13 1547 Author: Fran Eddy MD Service: Hospitalist Author Type: Physician Filed: 11/17/13 1746 Date of Service: 11/16/13 5440 Status: Signed Casing Tester: Fran Eddy MD (Physician) Related Notes: Original Note by Fran Eddy MD (Physician) filed at 11/16/13 7079 [facility] Service: Hospitalist Progress Note Ronald Butler 68 y.o. [id number] 323/323-1 female [facility] Day: LOS: 2 days Patient Summary: A 68-year-old female with past medical history of depression and his tory of suicidal attempts, COPD per patient but there is no documentation of it, who took an overdose of Flexeril and EMS found her in the bathtub with clothes on, and the patient was taken to [facility] ER where she was found to be unresponsive and hypertensive, an d was intubated and sent to [facility] for further workup and treatment. [...] as tricyclic positive. She was put on CIMT protocol for alcohol withdrawal. Today when I [...] atient told that she lives alone in [place]. She [facility]. She [...] Procedure Component Value Units Date/Time Urine culture [[id number]] Collected:11/16/13 0951 Specimen Information:Urine / Urine, Clean Catch Updated:11/16/13 1144 Potassium [[id number]] Collected:11/16/13 1112 Specimen Information:Blood Updated:11/16/13 1133 POTASSIUM 3.6 mmol/L Sputum culture [[id number]] Collected:11/14/13 2055 Specimen Information:Sputum / Tracheal Aspirate Updated:11/16/13 1018 Specimen Description TRACHEAL ASPIRATE Specimen Description Result: Testing performed at [facility];[address] [place] [address];[place] [address] GRAM STAIN GREATER THAN 10 WBCS/LPF GRAM STAIN LESS THAN 10 SEC/LPF GRAM STAIN 2+ GRAM POSITIVE COCCI GRAM STAIN 1+ GRAM POSITIVE RODS GRAM STAIN Result: Testing performed at [facility], [address] [place] [address] CULTURE 2+ NORMAL UPPER RESPIRATORY CURTIS CULTURE Result: Testing performed at [facility], [address] [place] [address] REPORT STATUS 11/16/2013 FINAL Acetaminophen level [[id number]] (Abnormal) Collected:11/16/13 0755 Specimen Information:Blood Updated:11/16/13 0828 ACETAMINOPHEN 3.7 (L) ug/mL Magnesium [[id number]] Collected:11/16/13406 Specimen Information:Blood Updated:11/16/13 0800 Phosphorus [[id number]] Collected:11/16/13406 Specimen Information:Blood Updated:11/16/13 0800 CBC w/auto diff (reflex to manual) [[id number]] (Abnormal) Collected:11/16/13406 Specimen Information:Blood Updated:11/16/13 0503 WBC [...] BASOPHILS ABS 0.0 K/uL Basic metabolic panel [[id number]] (Abnormal) Collected:11/16/13406 Specimen Information:Blood Updated:11/16/13 044 SODIUM 143 mmol/L POTASSIUM 3.1 (L) mmol/L CHLORIDE 109 mmol/L CO2 27 mmol/L ANION GAP AGAP 10 mmol/L GLUCOSE 78 mg/dL BUN 7 (L) mg/dL CREATININE 0.77 mg/dL BUN/CREAT 9 CALCIUM 7.8 (L) mg/dL EGFR >60 mL/min/1.73m2 Acetaminophen level [[id number]] (Abnormal) Collected:11/16/13406 Specimen Information:Blood Updated:11/16/13 0440 ACETAMINOPHEN 4.5 (L) ug/mL Acetaminophen level [[id number]] (Abnormal) Collected:11/16/13 0036 Specimen Information:Blood Updated:11/16/13 0058 ACETAMINOPHEN 5.2 (L) ug/mL Troponin I [[id number]] (Abnormal) Collected:11/15/13 1602 Specimen Information:Blood Updated:11/15/13 1651 TROPONIN I 0.208 (H) ng/mL CK MB [[id number]] Collected:11/15/13 1602 MMB 3.4 ng/mL Updated:11/15/13 165 CK-MB Index 2.4 CPK [[id number]] Collected:11/15/13 160 Specimen Information:Blood Updated:11/15/13 1651 CPK 140 U/L Acetaminophen level [[id number]] Collected:11/15/13 160 Specimen Information:Blood Updated:11/15/13 1651 ACETAMINOPHEN 10.0 ug/mL POCT glucose [[id number]] (Abnormal) Collected:11/14/13 1920 GLUCOSE,POC SCREEN 154 (H) mg/dL Updated:11/15/13 1317 Acetaminophen level [[id number]] (Abnormal) Collected:11/15/13 1132 Specimen Information:Blood Updated:11/15/13 1207 ACETAMINOPHEN 5.5 (L) ug/mL Basic metabolic panel [[id number]] (Abnormal) Collected:11/15/13 1132 Specimen Information:Blood Updated:11/15/13 1207 SODIUM 144 (H) mmol/L POTASSIUM 3.9 mmol/L CHLORIDE 114 (H) mmol/L CO2 20 (L) mmol/L ANION GAP AGAP 14 mmol/L GLUCOSE 153 (H) mg/dL BUN 8 mg/dL CREATININE 0.92 mg/dL BUN/CREAT 9 CALCIUM 7.4 (L) mg/dL EGFR >60 mL/min/1.73m2 CPK [[id number]] Collected:11/15/1351 Specimen Information:Blood Updated:11/15/13 0925 CPK 75 U/L Troponin I [[id number]] (Abnormal) Collected:11/15/13850 Specimen Information:Blood Updated:11/15/13 0925 TROPONIN I 0.325 (H) ng/mL CK MB [[id number]] Collected:11/15/13850 MMB 3.4 ng/mL Updated:11/15/13 0925 CK-MB Index 4.5 Acetaminophen level [[id number]] (Abnormal) Collected:11/15/13 0851 Specimen Information:Blood Updated:11/15/13 0925 ACETAMINOPHEN 6.3 (L) ug/mL POCT glucose [[id number]] Collected:11/15/13 0033 GLUCOSE,POC SCREEN 86 mg/dL Updated:11/15/13 0759 Osmolality [[id number]] (Abnormal) Collected:11/15/13407 Specimen Information:Blood Updated:11/15/13 0701 OSMOLALITY,SERUM 316 (H) mOsm/kg Lactic acid, plasma [[id number]] (Abnormal) Collected:11/15/13 0532 Specimen Information:Blood Updated:11/15/13 0617 LACTIC ACID 2.5 (H) mmol/L CBC w/auto diff (reflex to manual) [[id number]] (Abnormal) Collected:11/15/13407 Specimen Information:Blood Updated:11/15/13529 WBC 5.5 [...] BASOPHILS ABS 0.0 K/uL MORPHOLOGY Troponin I [[id number]] (Abnormal) Collected:11/15/13407 Specimen Information:Blood Updated:11/15/13522 TROPONIN I 0.647 (HH) ng/mL CK MB [[id number]] Collected:11/15/13407 MMB 3.3 ng/mL Updated:11/15/13522 CK-MB Index 5.9 CPK [[id number]] Collected:11/15/13407 Specimen Information:Blood Updated:11/15/13521 CPK 56 U/L Comprehensive metabolic panel [[id number]] (Abnormal) Collected:11/15/13407 Specimen Information:Blood Updated:11/15/13521 SODIUM 148 [...] 61 U/L EGFR >60 mL/min/1.73m2 Acetaminophen level [[id number]] (Abnormal) Collected:11/15/13 0408 Specimen Information:Blood Updated:11/15/13 0522 ACETAMINOPHEN 9.9 (L) ug/mL POC arterial CG4+ [[id number]] (Abnormal) Collected:11/14/132346 pH, Art 7.141 (LL) Updated:11/14/13 2351 POC PCO2 40 mmHg POC p02 283 (H) mmHg POC LACTATE 3.7 (H) mmol/L POC HCO3 14 (L) mmol/L POC TCO2 15 (L) mEq/L POC BASE DEFICIT 15 (H) mmol/L POC S02 100 (H) % POC FIO2 70 % POC COMMENTS Tidal Volume = 500 Lactic acid, plasma [[id number]] (Abnormal) Collected:11/14/132116 Specimen Information:Blood Updated:11/14/132155 LACTIC ACID 3.4 (H) mmol/L Basic metabolic panel [[id number]] (Abnormal) Collected:11/14/132112 Specimen Information:Blood Updated:11/14/132149 SODIUM 143 mmol/L POTASSIUM 3.0 (L) mmol/L CHLORIDE 114 (H) mmol/L CO2 16 (L) mmol/L ANION GAP AGAP 16 mmol/L GLUCOSE 187 (H) mg/dL BUN 10 mg/dL CREATININE 0.79 mg/dL BUN/CREAT 13 CALCIUM 6.5 (L) mg/dL EGFR >60 mL/min/1.73m2 Phosphorus [[id number]] Collected:11/14/132112 Specimen Information:Blood Updated:11/14/132149 PHOSPHORUS 2.4 mg/dL Magnesium [[id number]] Collected:11/14/132112 Specimen Information:Blood Updated:11/14/132149 MAGNESIUM 1.7 mg/dL Hepatic function panel [[id number]] (Abnormal) Collected:11/14/132112 TOTAL PROTEIN 5.6 (L) g/dL Updated:11/14/132149 Albumin 3.1 (L) g/dL TBIL 0.2 mg/dL BILI, DIRECT <0.1 mg/dL ALK PHOS 76 U/L AST 75 (H) U/L ALT 67 (H) U/L Acetaminophen level [[id number]] (Abnormal) Collected:11/14/132112 Specimen Information:Blood Updated:11/14/132149 ACETAMINOPHEN 44.4 (H) ug/mL Ionized calcium,to [facility] [[id number]] (Abnormal) Collected:11/14/132114 Specimen Information:Blood Updated:11/14/132145 CA++ 0.99 (L) mmol/L pH 7.179 (L) aPTT [[id number]] Collected:11/14/132112 Specimen Information:Blood Updated:11/14/132144 APTT 26 seconds Protime-INR [[id number]] Collected:11/14/132112 Specimen Information:Blood Updated:11/14/132144 INR 1.0 MRSA by PCR [[id number]] Collected:11/14/131929 Specimen Information:Nasopharyngeal / Nasopharyngeal Culture Updated:11/14/132130 SOURCE NARES(NOSE) RESULT NEGATIVE CBC w/auto diff (reflex to manual) [[id number]] (Abnormal) Collected:11/14/132112 Specimen Information:Blood Updated:11/14/132130 WBC 12.2 [...] ABS 0.0 K/uL Rapid drug screen, urine [[id number]] (Abnormal) Collected:11/14/131929 Specimen Information:Urine / Urine, Catheter Updated:11/14/132036 THC NEGATIVE PCP NEGATIVE COCAINE NEGATIVE METHAMPHETAMINES NEGATIVE OPIATES PRESUMPTIVE POSITIVE (A) AMPHETAMINE NEGATIVE BENZODIAZEPINE NEGATIVE TRICYCLIC ANTIDEPRESS PRESUMPTIVE POSITIVE (A) METHADONE NEGATIVE BARBITUATES NEGATIVE Urine microscopic only [[id number]] (Abnormal) Collected:11/14/131929 WBC 1-5 /hpf Updated:11/14/132035 RBC 0-2 /hpf EPITHELIAL NONE SEEN /lpf BACTERIA TRACE (A) Urinalysis (reflex to micro) [[id number]] (Abnormal) Collected:11/14/131929 Specimen Information:Urine / Urine, Catheter Updated:11/14/132035 COLOR UA OTHER CLARITY CLEAR Specific [place], UA 1.004 LEUKOCYTE ESTERASE TRACE (A) NITRITE [...] 11/15/2013 Ct Head Without Contrast 11/14/2013 RONALD BUTLER [address] HEAD WO [...] above. X-ray Chest 1 View 11/16/2013 RONALD BUTLER XR CHEST 1 VIEW 11/16/2013 6:21 AM [...] to distal superior vena cava. 11/14/2013 RONALD TORRESYOONHRLEIGHANN XR CHEST 1 VIEW 11/14/2013 8:56 PM [...] Cardiac Adult Limited 11/15/2013 Patient Name: RONALD BUTLER Date of : 1945 Performing Physician: Finesse Nunez MD INDICATIONS altered mental status, copd CONCLUSIONS [...] m/s Sonogr apher: AB Authenticated by: Finesse Nunez MD Report Date/Time: 11-15-2013 18:08:31 11/15/2013 1. [...] patient on Lovenox. 7. FULL code. FRAN EDDY MD 11/16/2013 onversion Transactio n, Provider Unknown - 11/16/2013 2:22 PM PST Progress Notes by Kassidy Perez RN at 11/16/13 142 Author: Kassidy Perez RN Service: (none) Author Type: Registered Nurse Filed: 11/16/13 1423 Date of Service: 11/16/131421 Status: Signed Casing Tester: Kassidy Perez RN (Registered Nurse) Pt beginning to become more agitated and verbal. Dr. Eddy notified. Will move into room w/ o roommate for now. Will cont. to monitor. onver hiren Transaction, Provider Unknown - 11/16/2013 11:40 AM PST Progress Notes by Jana Taylor at 11/16/13 1140 Author: Jana Taylor Service: (none) Author Type: Registered Nurse Filed: 11/16/13 1140 Date of Service: 11/16/13 1140 Status: Signed Casing Tester: Jana Taylor Pt given to Kassidy MORAN on 3OP. Pt transferred via wheel chair. onver hiren Transaction, Provider Unknown - 11/16/2013 1:17 AM PST Nurse Progress Note by Sheryl Tomas RN at 11/16/13116 Author: Sheryl Tomas RN Service: (none) Author Type: Registered Nurse Filed: 11/16/13116 Date of Service: 11/16/13116 Status: Signed Casing Tester: Sheryl Tomas RN (Registered Nurse) Stopped Acetylcysteine drip per order. Sheryl Tomas RN iotr hesham Jana Osbornanne - 11/15/2013 4:28 PM PST Progress Notes by Jana Norris DO at 11/15/131627 Author: Jana Norris DO Service: (none) Author Type: Sql Report Analyst Filed: 11/15/131628 Date of Service: 11/15/131627 Status: Signed Casing Tester: Jana Norris DO (Sql Report Analyst) Pt was extubated this am and has been stable. Will transfer her to acute care. Psychiatrist has seen her and will need to see her again prior to d/c. Dr Eddy has accepted pt in trans ladan to the hospitalist service. onversion Transact ion, Provider Unknown - 11/15/2013 2:08 PM PSTFormatting of this note might be different fr om the original. Case Management by Kourtney De Santiago RN at 11/15/131407 Author: Kourtney De Santiago RN Service: (none) Author Type: Registered Nurse Filed: 11/15/131408 Date of Service: 11/15/131407 Status: Signed Casing Tester: Kourtney De Santiago RN (Registered Nurse) Discussed psych consult with Dr. Norris. Received verbal order for psych consult. Notifi wilbert Flores RN, she will arrange for psych consult. When pt is stable for discharge, will need to call [phone] : [phone] to evalulate before disch arging pt. KOURTNEY DE SANTIAGO 11/15/2013 2:09 PM onver hiren Transaction, Provider Unknown - 11/15/2013 9:32 AM PST Progress Notes by Nick Jeffries RN at 11/15/13931 Author: Nick Jeffries RN Service: Wound/Ostomy Care Author Type: Registered Nurse Filed: 11/15/1334 Date of Service: 11/15/13931 Status: Signed Casing Tester: Nick Jeffries RN (Registered Nurse) Pt seen [...] 0557 Date of Service: 11/15/1357 Status: Signed Casing Tester: Mat Perez RPH (Pharmacist) Clinical Pharmacy Note: Renal Monitoring Ronald Koben 68 y.o. female Ht Readings from Last 1 Encounters: No data found for Ht Wt Readings from Last 1 Encounters: 11/15/13 69.1 kg (152 lb 5.4 oz) CREATININE Date Value Range Status 11/15/2013 0.69 0.50 - 1.00 mg/dL Final Testing performed at [facility];[address] [place] [address];[place] [address] Creatinine clearance cannot be calculated - Unknown [...] 6:57 PM PST Progress Notes by Roseline Sheppard RN at 11/14/131856 Author: Roseline Sheppard RN Service: (none) Author Type: Registered Nurse Filed: 11/15/131951 Date of Service: 11/14/131856 Status: Signed Casing Tester: Roseline Sheppard RN (Registered Nurse) Pt arrived [facility] from [facility]. No report called from [place] a nd minimal report received Via [facility]. Pt transferred to bed, ventilator applied to exist ing ETT via RT. Obvious smell of ETOH emitting from PT. No cough, gag or corneals noted. patient safety officer RN Gayle in room to assume care of pt. ROSELINE SHEPPARD 11/14/131856 docume nted in this encounter Plan [...] DEWEY | | | | | | [id number] | | | | | | | | +--------+---------+ + + + | 04/03/ | Office | Cardiology | Zuleyka Castillo DO | | | 2019 | Visit | | [address] | | | | | | [place] | | | | | | [address] | | | | | | | [...] | ECG 12 LEAD | Routin | 11/15/2013 | | Results [...] | ECG 12 LEAD | Routin | 11/14/2013 | | Results for this | | | e | 11:55 PM | | procedure are in the [...] | EXTERNAL LAB | | performed at [facility];[address] [place] [address];[place] [address] 027 NAP1 BI | | | 027 NAP1 BI PRESUMPTIVE NEGATIVE | | | Detection of 027 NAP1 BI strains of C. difficile is presumptive and | | | for epidemiological purposes and not intended to guide or monitor | | | treatment for C. difficile infections. Testing performed at [facility] | | | [facility];[place] [address] | | + + + + +---------+ + + | Performing | Address | City/State/Zipcode | Phone Number | | Organization | | | | + +---------+ + + | EXTERNAL LAB | | | | + +---------+ + + External Lab: CBC (11/19/2013 4:25 AM PST) + + + + + + | Component | Value | Ref Range | Performed | Pathologist | | | | | At | Signature | + + + + + + | WBC | 5.6Comment: Testing | 3.8 - 11.0 K/uL | EXTERNAL | | | | performed at [facility], [address] | | LAB | | | | [address], | | | | | | [place] [address] | | | | + + + + + + | Red Blood | 3.85Comment: Testing | 3.70 - 5.10 | EXTERNAL | | | Cells | performed at [facility], [address] | M/uL | LAB | | | Counted | [address], | | | | | | [place] [address] | | | | + + + + + + | Hemoglobin | 10.7 (L)Comment: Testing | 11.3 - 15.5 | EXTERNAL | | | | performed at [facility], [address] | g/dL | LAB | | | | [address], | | | | | | [place] [address] | | | | + + + + + + | Hematocrit, | 32.8 (L)Comment: Testing | 34.0 - 46.0 % | EXTERNAL | | | POC | performed at [facility], [address] | | LAB | | | | [address], | | | | | | [place] [address] | | | | + + + + + + | MCV | 85.2Comment: Testing | 80.0 - 100.0 fl | EXTERNAL | | | | performed at [facility], [address] | | LAB | | | | [address], | | | | | | [place] [address] | | | | + + + + + + | MCH | 27.8Comment: Testing | 27.0 - 34.0 pg | EXTERNAL | | | | performed at [facility], [address] | | LAB | | | | [address], | | | | | | [place] [address] | | | | + + + + + + | MCHC | 32.6Comment: Testing | 32.0 - 35.5 | EXTERNAL | | | | performed at [facility], [address] | g/dL | LAB | | | | [address], | | | | | | [place], [place] [address] | | | | + + + + + + | RDW-CV | 38.1Comment: Testing | 37 - 53 fl | EXTERNAL | | | | performed at [facility], [address] | | LAB | | | | [address], | | | | | | [place] [address] | | | | + + + + + + | Platelet | 222Comment: Testing | 150 - 400 K/uL | EXTERNAL | | | Count | performed at [facility], [address] | | LAB | | | Plasma | [address], | | | | | | [place] [address] | | | | + + + + + + | MPV | 7.8Comment: Testing | fl | EXTERNAL | | | | performed at [facility], [address] | | LAB | | | | [address], | | | | | | [place] [address] | | | | + + + + + + | Differentia | AUTOMATEDComment: | | EXTERNAL | | | l Type | Testing performed at | | LAB | | | | [facility], [address] | | | | | | [place] | | | | | | [address] | | | | + + + [...] EXTERNAL | | | | performed at [facility], [address] | | LAB | | | | [address], | | | | | | [place] [address] | | | | + + + [...] EXTERNAL | | | | performed at [facility], [address] | | LAB | | | | [address], | | | | | | [place] [address] | | | | + + + [...] | | | | | [place] [address] | | | | + + + + + + | K | 3.9Comment: Testing | 3.5 - 4.9 | EXTERNAL | | | | performed at [facility], [address] | mmol/L | LAB | | | | [address], | | | | | | [place] [address] | | | | + + + + + + | Cl | 101Comment: Testing | 99 - 109 mmol/L | EXTERNAL | | | | performed at [facility], [address] | | LAB | | | | [address], | | | | | | [place] [address] | | | | + + + + + + | CO2 | 24Comment: Testing | 23 - 32 mmol/L | EXTERNAL | | | | performed at [facility], [address] | | LAB | | | | [address], | | | | | | [place] [address] | | | | + + + + + + | Anion Gap | 12Comment: Testing | 5 - 20 mmol/L | EXTERNAL | | | | performed at [facility], [address] | | LAB | | | | [address], | | | | | | [place] [address] | | | | + + + + + + | Glucose, | 108 (H)Comment: Testing | 65 - 99 mg/dL | EXTERNAL | | | Fasting | performed at [facility], [address] | | LAB | | | | [address], | | | | | | [place] [address] | | | | + + + + + + | BUN | 12Comment: Testing | 8 - 25 mg/dL | EXTERNAL | | | | performed at [facility], [address] | | LAB | | | | [address], | | | | | | [place] [address] | | | | + + + + + + | Creatinine | 0.80Comment: Testing | 0.50 - 1.00 | EXTERNAL | | | | performed at [facility], [address] | mg/dL | LAB | | | | [address], | | | | | | [place] [address] | | | | + + + + + + | BUN/Creatin | 15Comment: Testing | | EXTERNAL | | | ine Ratio | performed at [facility], [address] | | LAB | | | | [address], | | | | | | [place] [address] | | | | + + + + + + | Calcium | 9.2Comment: Testing | 8.5 - 10.2 | EXTERNAL | | | | performed at [facility], [address] | mg/dL | LAB | | | | [facility], | | | | | | [place] [address] | | | | + + + [...] | | | | | | at [facility], [address] | | | | | | [address], | | | | | | [place] [address] | | | | + + + [...] | EXTERNAL LAB | | performed at [facility];[address];[place] [address] | | + + + + +---------+ [...] At | + + + | RONALD BUTLER XR LUMBAR SPINE LIMITED 2-3 VIEW 11/18/2013 [...] Conversion - 06/15/2019 1:42 PM PDT RONALD SYKESHERTYFAWTHROPXR LUMBAR SPINE | | LIMITED 2-3 VIEW11/18/2013 [...] Reji Conversion - 06/15/2019 1:42 PM PDT RONALD BRENDATYFAWTHROPXR HIPS | | BILATERAL11/18/2013 4:56 PM HISTORY:68 [...] | | + + External Lab: CBC (11/18/2013 6:00 AM PST) + + + + + + | Component | Value | Ref Range | Performed | Pathologist | | | | | At | Signature | + + + + + + | WBC | 8.7Comment: Testing | 3.8 - 11.0 K/uL | EXTERNAL | | | | performed at [facility], [address] | | LAB | | | | [address], | | | | | | [place] [address] | | | | + + + + + + | Red Blood | 3.77Comment: Testing | 3.70 - 5.10 | EXTERNAL | | | Cells | performed at [facility], [address] | M/uL | LAB | | | Counted | [address], | | | | | | [place] [address] | | | | + + + + + + | Hemoglobin | 10.8 (L)Comment: Testing | 11.3 - 15.5 | EXTERNAL | | | | performed at [facility], [address] | g/dL | LAB | | | | [address], | | | | | | [place] [address] | | | | + + + + + + | Hematocrit, | 31.9 (L)Comment: Testing | 34.0 - 46.0 % | EXTERNAL | | | POC | performed at [facility], [address] | | LAB | | | | [address], | | | | | | [place] [address] | | | | + + + + + + | MCV | 84.8Comment: Testing | 80.0 - 100.0 fl | EXTERNAL | | | | performed at [facility], [address] | | LAB | | | | [address], | | | | | | [place] [address] | | | | + + + + + + | MCH | 28.8Comment: Testing | 27.0 - 34.0 pg | EXTERNAL | | | | performed at [facility], [address] | | LAB | | | | [address], | | | | | | [place] [address] | | | | + + + + + + | MCHC | 33.9Comment: Testing | 32.0 - 35.5 | EXTERNAL | | | | performed at [facility], [address] | g/dL | LAB | | | | [address], | | | | | | [place] [address] | | | | + + + + + + | RDW-CV | 37.6Comment: Testing | 37 - 53 fl | EXTERNAL | | | | performed at [facility], [address] | | LAB | | | | [address], | | | | | | [place] [address] | | | | + + + + + + | Platelet | 183Comment: Testing | 150 - 400 K/uL | EXTERNAL | | | Count | performed at [facility], [address] | | LAB | | | Plasma | [address], | | | | | | [place] [address] | | | | + + + + + + | MPV | 7.9Comment: Testing | fl | EXTERNAL | | | | performed at [facility], [address] | | LAB | | | | [address], | | | | | | [place] [address] | | | | + + + + + + | Differentia | AUTOMATEDComment: | | EXTERNAL | | | l Type | Testing performed at | | LAB | | | | [facility], [address] | | | | | | [address], [place] | | | | | | [address] | | | | + + + [...] EXTERNAL | | | | performed at [facility], [address] | uIU/mL | LAB | | | | [address], | | | | | | [place] [address] | | | | + + + [...] EXTERNAL | | | | performed at [facility], [address] | | LAB | | | | [address], | | | | | | [place] [address] | | | | + + + [...] EXTERNAL | | | | performed at [facility], [address] | | LAB | | | | [address], | | | | | | [place] [address] | | | | + + + [...] | | | | | [place] [address] | | | | + + + + + + | K | 4.2Comment: Testing | 3.5 - 4.9 | EXTERNAL | | | | performed at [facility], [address] | mmol/L | LAB | | | | [address], | | | | | | [place] [address] | | | | + + + + + + | Cl | 104Comment: Testing | 99 - 109 mmol/L | EXTERNAL | | | | performed at [facility], [address] | | LAB | | | | [address], | | | | | | [place] [address] | | | | + + + + + + | CO2 | 24Comment: Testing | 23 - 32 mmol/L | EXTERNAL | | | | performed at [facility], [address] | | LAB | | | | [address], | | | | | | [place] [address] | | | | + + + + + + | Anion Gap | 11Comment: Testing | 5 - 20 mmol/L | EXTERNAL | | | | performed at [facility], [address] | | LAB | | | | [address], | | | | | | [place] [address] | | | | + + + + + + | Glucose, | 110 (H)Comment: Testing | 65 - 99 mg/dL | EXTERNAL | | | Fasting | performed at [facility], [address] | | LAB | | | | [address], | | | | | | [place] [address] | | | | + + + + + + | BUN | 11Comment: Testing | 8 - 25 mg/dL | EXTERNAL | | | | performed at [facility], [address] | | LAB | | | | [address], | | | | | | [place] [address] | | | | + + + + + + | Creatinine | 0.73Comment: Testing | 0.50 - 1.00 | EXTERNAL | | | | performed at [facility], [address] | mg/dL | LAB | | | | [address], | | | | | | [place] [address] | | | | + + + + + + | BUN/Creatin | 15Comment: Testing | | EXTERNAL | | | ine Ratio | performed at [facility], [address] | | LAB | | | [address], | | | | | | [place] [address] | | | | + + + + + + | Calcium | 9.0Comment: Testing | 8.5 - 10.2 | EXTERNAL | | | | performed at [facility], [address] | mg/dL | LAB | | | | [address], | | | | | | [place] [address] | | | | + + + [...] [address], | | | | | | [place] [address] | | | | + + + [...] EXTERNAL LAB | | Testing performed at [facility];[address] | | | [facility];[place] [address] GRAM STAIN | | | GREATER THAN 10 WBCS/LPF | | | LESS THAN 10 SEC/LPF | | | NO ORGANISMS SEEN | | | Testing performed at [facility], [address] [place] [address], | | | [place] [address] CULTURE | | | 3+ ZITA GLABRATAAbnormal | | | 2+ ZITA DUBLINIENSISAbnormal | | | 2+ KLEBSIELLA OXYTOCAAbnormal | | | 1+ NORMAL UPPER RESPIRATORY | | | CURTIS Testing | | | performed at [facility], [address] [place] [address], [place] [address] | | | REPORT STATUS 11/23/2013 FINAL [...] EXTERNAL LAB | | Testing performed at [facility];[address] | | | [facility];[place] [address] SPECIAL REQUESTS | | | [facility] | | | Testing performed at [facility];[address] [facility];[place] [address] CULTURE | | | NO GROWTH 6 DAYS | | | Testing performed at [facility], [address] | | | [place] [address] REPORT STATUS | | | 11/23/2013 FINAL [...] EXTERNAL LAB | | Testing performed at [facility];[address] | | | [place] [address] SPECIAL REQUESTS | | | REPEAT TEST USING ALTERNATE ASSAYED CONTROL MATERIAL | | | Testing performed at [facility];[address] | | | [facility];[place] [address] CULTURE | | | NO GROWTH 6 DAYS | | | Testing performed at [facility], [address] [facility] | | | [place] [address] REPORT STATUS 11/23/2013 | | | FINAL [...] | Testing performed at | | | [facility];[address] [facility];[place] [address] CULTURE | | | NO GROWTH | | | Testing performed at [facility], [address] [facility], | | | [place] [address] REPORT STATUS | | | 11/18/2013 FINAL [...] | | | | | [place] [address] | | | | + + + + + + | TIBC | 155 (L)Comment: Testing | 260 - 490 ug/dL | EXTERNAL | | | | performed at [facility], [address] | | LAB | | | | [address], | | | | | | [place] [address] | | | | + + + + + + | Iron | 20Comment: Testing | 15 - 50 % | EXTERNAL | | | Saturation | performed at [facility], [address] | | LAB | | | | [address], | | | | | | [place] [address] | | | | + + + [...] + +---------+ + + External Lab: SAMARIA (11/17/2013 5:57 AM PST) + + + [...] | | | | | [place] [address] | | | | + + + + + + | Red Blood | 3.51 (L)Comment: Testing | 3.70 - 5.10 | EXTERNAL | | | Cells | performed at [facility], [address] | M/uL | LAB | | | Counted | [address], | | | | | | [place] [address] | | | | + + + + + + | Hemoglobin | 9.6 (L)Comment: Testing | 11.3 - 15.5 | EXTERNAL | | | | performed at [facility], [address] | g/dL | LAB | | | | [address], | | | | | | [place] [address] | | | | + + + + + + | Hematocrit, | 29.5 (L)Comment: Testing | 34.0 - 46.0 % | EXTERNAL | | | POC | performed at [facility], [address] | | LAB | | | | [address], | | | | | | [place] [address] | | | | + + + + + + | MCV | 84.3Comment: Testing | 80.0 - 100.0 fl | EXTERNAL | | | | performed at [facility], [address] | | LAB | | | [address], | | | | | | [place] [address] | | | | + + + + + + | MCH | 27.5Comment: Testing | 27.0 - 34.0 pg | EXTERNAL | | | | performed at [facility], [address] | | LAB | | | | [address], | | | | | | [place] [address] | | | | + + + + + + | MCHC | 32.6Comment: Testing | 32.0 - 35.5 | EXTERNAL | | | | performed at [facility], [address] | g/dL | LAB | | | | [address], | | | | | | [place] [address] | | | | + + + + + + | RDW-CV | 36.3 (L)Comment: Testing | 37 - 53 fl | EXTERNAL | | | | performed at [facility], [address] | | LAB | | | | [address], | | | | | | [place] [address] | | | | + + + + + + | Platelet | 151Comment: Testing | 150 - 400 K/uL | EXTERNAL | | | Count | performed at [facility], [address] | | LAB | | | Plasma | [address], | | | | | | [place] [address] | | | | + + + + + + | MPV | 7.9Comment: Testing | fl | EXTERNAL | | | | performed at [facility], [address] | | LAB | | | | [address], | | | | | | [place] [address] | | | | + + + + + + | Differentia | AUTOMATEDComment: | | EXTERNAL | | | l Type | Testing performed at | | LAB | | | | [facility], [address] | | | | | | [address], [place] | | | | | | [address] | | | | + + + [...] EXTERNAL | | | | performed at [facility], [address] | | LAB | | | | [address], | | | | | | [place] [address] | | | | + + + [...] | | | External | performed at [facility], [address] | | LAB | | | | [address], | | | | | | [place] [address] | | | | + + + [...] | | | B-12 | performed at [facility], [address] | pg/mL | LAB | | | | [address], | | | | | | [place] [address] | | | | + + + [...] EXTERNAL | | | | performed at [facility], [address] | mmol/L | LAB | | | | [address], | | | | | | [place] [address] | | | | + + + + + + | K | 3.8Comment: Testing | 3.5 - 4.9 | EXTERNAL | | | | performed at [facility], [address] | mmol/L | LAB | | | | [address], | | | | | | [place] [address] | | | | + + + + + + | Cl | 103Comment: Testing | 99 - 109 mmol/L | EXTERNAL | | | | performed at [facility], [address] | | LAB | | | | [address], | | | | | | [place] [address] | | | | + + + + + + | CO2 | 28Comment: Testing | 23 - 32 mmol/L | EXTERNAL | | | | performed at [facility], [address] | | LAB | | | | [address], | | | | | | [place] [address] | | | | + + + + + + | Anion Gap | 7Comment: Testing | 5 - 20 mmol/L | EXTERNAL | | | | performed at [facility], [address] | | LAB | | | | [address], | | | | | | [place] [address] | | | | + + + + + + | Glucose, | 131 (H)Comment: Testing | 65 - 99 mg/dL | EXTERNAL | | | Fasting | performed at [facility], [address] | | LAB | | | | [address], | | | | | | [place] [address] | | | | + + + + + + | BUN | 7 (L)Comment: Testing | 8 - 25 mg/dL | EXTERNAL | | | | performed at [facility], [address] | | LAB | | | | [address], | | | | | | [place] [address] | | | | + + + + + + | Creatinine | 0.61Comment: Testing | 0.50 - 1.00 | EXTERNAL | | | | performed at [facility], [address] | mg/dL | LAB | | | | [address], | | | | | | [place] [address] | | | | + + + + + + | BUN/Creatin | 11Comment: Testing | | EXTERNAL | | | ine Ratio | performed at [facility], [address] | | LAB | | | | [address], | | | | | | [place] [address] | | | | + + + + + + | Calcium | 8.5Comment: Testing | 8.5 - 10.2 | EXTERNAL | | | | performed at [facility], [address] | mg/dL | LAB | | | | [address], | | | | | | [place] [address] | | | | + + + + + + | Protein, | 5.2 (L)Comment: Testing | 6.3 - 8.2 g/dL | EXTERNAL | | | Total | performed at [facility], [address] | | LAB | | | | [address], | | | | | | [place] [address] | | | | + + + + + + | Albumin | 3.1 (L)Comment: Testing | 3.3 - 4.8 g/dL | EXTERNAL | | | | performed at [facility], [address] | | LAB | | | | [address], | | | | | | [place] [address] | | | | + + + + + + | Globulin | 2.1Comment: Testing | 1.3 - 4.9 g/dL | EXTERNAL | | | | performed at [facility], [address] | | LAB | | | | [address], | | | | | | [place] [address] | | | | + + + + + + | A/G Ratio | 1.5Comment: Testing | 1.0 - 2.4 | EXTERNAL | | | | performed at [facility], [address] | | LAB | | | | [address], | | | | | | [place] [address] | | | | + + + + + + | Bilirubin | 0.6Comment: Testing | 0.1 - 1.5 mg/dL | EXTERNAL | | | Total | performed at [facility], [address] | | LAB | | | | [address], | | | | | | [place] [address] | | | | + + + + + + | ALP, | 48Comment: Testing | 35 - 115 U/L | EXTERNAL | | | External | performed at [facility], [address] | | LAB | | | | [address], | | | | | | [place] [address] | | | | + + + + + + | AST | 19Comment: Testing | 10 - 45 U/L | EXTERNAL | | | | performed at [facility], [address] | | LAB | | | | [address], | | | | | | [place] [address] | | | | + + + + + + | ALT | 21Comment: Testing | 10 - 65 U/L | EXTERNAL | | | | performed at [facility], [address] | | LAB | | | | [address], | | | | | | [place] [address] | | | | + + + [...] | | | | | [place] [address] | | | | + + + [...] EXTERNAL | | | | performed at [facility];[address] | mmol/L | LAB | | | | [address];[place], [place] | | | | | | [address] | | | | + + + [...] | Testing performed at | | | [facility];[address] [facility];[place] [address] CULTURE | | | NO GROWTH | | | Testing performed at [facility], [address] [facility], | | | [place] [address] REPORT STATUS | | | 11/17/2013 FINAL [...] | | EN LEVEL | performed at [facility];[address] | ug/mL | LAB | | | | [address];[place] | | | | | | [address] | | | | + + + [...] At | + + + | RONALD KOWTHROP XR CHEST 1 VIEW 11/16/2013 [...] alveolar infiltrates suggesting mild alveolar pulmonary ramin alonso, unchanged. | |2. Endotracheal extubation. | | | | | + + External Lab: SAMARIA (11/16/2013 4:07 AM PST) + + + + + + | Component | Value | Ref Range | Performed | Pathologist | | | | | At | Signature | + + + + + + | WBC | 11.5 (H)Comment: Testing | 3.8 - 11.0 K/uL | EXTERNAL | | | | performed at [facility], [address] | | LAB | | | | [address], | | | | | | [place] [address] | | | | + + + + + + | Red Blood | 3.54 (L)Comment: Testing | 3.70 - 5.10 | EXTERNAL | | | Cells | performed at [facility], [address] | M/uL | LAB | | | Counted | [address], | | | | | | [place] [address] | | | | + + + + + + | Hemoglobin | 10.1 (L)Comment: Testing | 11.3 - 15.5 | EXTERNAL | | | | performed at [facility], [address] | g/dL | LAB | | | | [address], | | | | | | [place] [address] | | | | + + + + + + | Hematocrit, | 29.5 (L)Comment: Testing | 34.0 - 46.0 % | EXTERNAL | | | POC | performed at [facility], [address] | | LAB | | | | [address], | | | | | | [place] [address] | | | | + + + + + + | MCV | 83.4Comment: Testing | 80.0 - 100.0 fl | EXTERNAL | | | | performed at [facility], [address] | | LAB | | | | [address], | | | | | | [place] [address] | | | | + + + + + + | MCH | 28.7Comment: Testing | 27.0 - 34.0 pg | EXTERNAL | | | | performed at [facility], [address] | | LAB | | | | [address], | | | | | | [place] [address] | | | | + + + + + + | MCHC | 34.3Comment: Testing | 32.0 - 35.5 | EXTERNAL | | | | performed at [facility], [address] | g/dL | LAB | | | | [address], | | | | | | [place] [address] | | | | + + + + + + | RDW-CV | 37.6Comment: Testing | 37 - 53 fl | EXTERNAL | | | | performed at [facility], [address] | | LAB | | | | [address], | | | | | | [place] [address] | | | | + + + + + + | Platelet | 176Comment: Testing | 150 - 400 K/uL | EXTERNAL | | | Count | performed at [facility], [address] | | LAB | | | Plasma | [address], | | | | | | [place] [address] | | | | + + + + + + | MPV | 7.8Comment: Testing | fl | EXTERNAL | | | | performed at [facility], [address] | | LAB | | | | [address], | | | | | | [place] [address] | | | | + + + + + + | Differentia | AUTOMATEDComment: | | EXTERNAL | | | l Type | Testing performed at | | LAB | | | | [facility], [address] | | | | | | [place] | | | | | | [address] | | | | + + + [...] EXTERNAL | | | | performed at [facility] | | LAB | | | | [address] [facility];[place], [place] | | | | | | [address] | | | | + + + [...] EXTERNAL | | | | performed at [facility];[address] | | LAB | | | | [address];[place] | | | | | | [address] | | | | + + + [...] | | EN LEVEL | performed at [facility];888 | ug/mL | LAB | | | | [address];[place], [place] | | | | | | [address] | | | | + + + [...] EXTERNAL | | | | performed at [facility];888 | mmol/L | LAB | | | | [address];[place] | | | | | | [address] | | | | + + + + + + | K | 3.1 (L)Comment: Testing | 3.5 - 4.9 | EXTERNAL | | | | performed at [facility];888 | mmol/L | LAB | | | | [address];[place] | | | | | | [address] | | | | + + + + + + | Cl | 109Comment: Testing | 99 - 109 mmol/L | EXTERNAL | | | | performed at [facility];[address] | | LAB | | | | [address];[place] | | | | | | [address] | | | | + + + + + + | CO2 | 27Comment: Testing | 23 - 32 mmol/L | EXTERNAL | | | | performed at [facility];[address] | | LAB | | | | [address];[place] | | | | | | [address] | | | | + + + + + + | Anion Gap | 10Comment: Testing | 5 - 20 mmol/L | EXTERNAL | | | | performed at [facility];[address] | | LAB | | | | [address];[place] | | | | | | [address] | | | | + + + + + + | Glucose, | 78Comment: Testing | 65 - 99 mg/dL | EXTERNAL | | | Fasting | performed at [facility];[address] | | LAB | | | | [address];[place] | | | | | | [address] | | | | + + + + + + | BUN | 7 (L)Comment: Testing | 8 - 25 mg/dL | EXTERNAL | | | | performed at [facility];[address] | | LAB | | | | [address];[place] | | | | | | [address] | | | | + + + + + + | Creatinine | 0.77Comment: Testing | 0.50 - 1.00 | EXTERNAL | | | | performed at [facility];888 | mg/dL | LAB | | | | [address];[place] | | | | | | [address] | | | | + + + + + + | BUN/Creatin | 9Comment: Testing | | EXTERNAL | | | ine Ratio | performed at [facility];[address] | | LAB | | | | [address];[place] | | | | | | [address] | | | | + + + + + + | Calcium | 7.8 (L)Comment: Testing | 8.5 - 10.2 | EXTERNAL | | | | performed at [facility];888 | mg/dL | LAB | | | | [address];[place], [place] | | | | | | [address] | | | | + + + [...] | | | | | | at [facility];[address] [facility] | | | | | | Blvd;[place] [address] | | | | + + + [...] | | EN LEVEL | performed at [facility];888 | ug/mL | LAB | | | | [address];[place], [place] | | | | | | [address] | | | | + + + [...] EXTERNAL | | | | performed at [facility];888 | | LAB | | | | [address];[place], [place] | | | | | | [address] | | | | + + + [...] | | | | | | ACUTE NC Testing | | | | | | performed at [facility];Enrique[address] | | | | | | [address];[place], [place] | | | | | | [address] | | | | + + + [...] EXTERNAL | | | | performed at [facility];888 | | LAB | | | | [address];[place], [place] | | | | | | [address] | | | | + + + [...] | | EN LEVEL | performed at [facility];888 | ug/mL | LAB | | | | [address];[place], [place] | | | | | | [address] | | | | + + + [...] + + + | Patient Name: RONALD BUTLER Date of : | | | 1945 Performing Physician: | | | Finesse Nunez MD | | | | | | [...] TR | | | Vmax: 2.44 m/s Raking Machine Operator: Authenticated by: Finesse Nunez | | | MD Report Date/Time: 11-15-2013 18:08:31 | | + + + + + | Procedure Note | + + | Reji Pacheco Conversion - 06/15/2019 1:42 PM PDT Patient Name: CARRIE, | | SHILOate of : 1945 Performing Physician: Finesse Nunez | | | | MD INDICATIONS a [...] 23.26 cmAVA Vmax: 3.14 cm2AVA (VTI): 2.90 ft5ADPJ Dopp: | | 4.57 l/gxdz5YGYY Dopp: 7.95 l/minHR: 117.60 BPMLVOT maxP.36 mmHgLVOT [...] maxP.88 mmHgTR Vmax: | | 2.44 m/s Raking Machine Operator: ABAuthenticated by: Finesse MCCULLOUGHeport Date/Time: 11-15-2013 | | 18:08:31 IMPRESSION: 1. [...] cm | |SHABNAM Vmax: 3.14 cm2 | |SHANBAM (VTI): 2.90 cm2 | |LVCI Dopp: 4.57 [...] |TR Vmax: 2.44 m/s | | | |Raking Machine Operator: AB | |Authenticated by: Finesse Nunez MD | |Report Date/Time: 11-15-2013 18:08:31 | [...] | | EN LEVEL | performed at [facility];888 | ug/mL | LAB | | | | [address];[place] | | | | | | [address] | | | | + + + [...] EXTERNAL | | | | performed at [facility];888 | mmol/L | LAB | | | | [address] [facility];[place], [place] | | | | | | [address] | | | | + + + + + + | K | 3.9Comment: Testing | 3.5 - 4.9 | EXTERNAL | | | | performed at [facility];888 | mmol/L | LAB | | | | [address];[place] | | | | | | [address] | | | | + + + + + + | Cl | 114 (H)Comment: Testing | 99 - 109 mmol/L | EXTERNAL | | | | performed at [facility];888 | | LAB | | | | [address];[place] | | | | | | [address] | | | | + + + + + + | CO2 | 20 (L)Comment: Testing | 23 - 32 mmol/L | EXTERNAL | | | | performed at [facility];888 | | LAB | | | | [address];[place] | | | | | | [address] | | | | + + + + + + | Anion Gap | 14Comment: Testing | 5 - 20 mmol/L | EXTERNAL | | | | performed at [facility];[address] | | LAB | | | | [address];[place] | | | | | | [address] | | | | + + + + + + | Glucose, | 153 (H)Comment: Testing | 65 - 99 mg/dL | EXTERNAL | | | Fasting | performed at [facility];[address] | | LAB | | | | [address];[place] | | | | | | [address] | | | | + + + + + + | BUN | 8Comment: Testing | 8 - 25 mg/dL | EXTERNAL | | | | performed at [facility];[address] | | LAB | | | | [address];[place] | | | | | | [address] | | | | + + + + + + | Creatinine | 0.92Comment: Testing | 0.50 - 1.00 | EXTERNAL | | | | performed at [facility];888 | mg/dL | LAB | | | | [address];[place] | | | | | | [address] | | | | + + + + + + | BUN/Creatin | 9Comment: Testing | | EXTERNAL | | | ine Ratio | performed at [facility];888 | | LAB | | | | [address];[place] | | | | | | [address] | | | | + + + + + + | Calcium | 7.4 (L)Comment: Testing | 8.5 - 10.2 | EXTERNAL | | | | performed at [facility];888 | mg/dL | LAB | | | | [address];[place] | | | | | | [address] | | | | + + + [...] | | | | | | at [facility];[address] | | | | | | [address];[place] [address] | | | | + + + [...] EXTERNAL | | | | performed at [facility];888 | | LAB | | | | [address];[place], [place] | | | | | | [address] | | | | + + + [...] | | | | | | ACUTE NC Testing | | | | | | performed at [facility];88 | | | | | | [address];[place], [place] | | | | | | [address] | | | | + + + [...] EXTERNAL | | | | performed at [facility];[address] | | LAB | | | | [address];[place], [place] | | | | | | [address] | | | | + + + [...] | | EN LEVEL | performed at [facility];888 | ug/mL | LAB | | | | [address];[place], [place] | | | | | | [address] | | | | + + + [...] At | + + + | RONALD TORRESTYFAWTHROP XR CHEST 1 VIEW 11/15/2013 6:08 AM [...] | Procedure Note | + ------+ | Reji Pacheco Conversion - 06/15/2019 1:42 PM TRES RONALD BRENDATYFAWTHROPXR CHEST 1 | | VIEW11/15/2013 6:08 AM [...] | | | | | + ------+ ECG 12 lead (11/15/2013 6:00 AM PST) + + + + + + | Component | Value | Ref Range | Performed | Pathologist | | | | | At | Signature | + + + + + + | DIAGNOSIS: | Sinus tachycardiaLow | | EXTERNAL | | | | voltage QRSBorderline | | LAB | | | | ECGWhen compared with | | | | | | ECG of 14-NOV-2013 | | | | | | 23:55,No significant | | | | | | change was | | | | | | foundConfirmed by | | | | | | FINESSE NUNEZ ([id number]) on | | | | | | 11/15/2013 3:38:27 PM | | | | + + + + + + + + | Specimen | + + | | + + + + + | Narrative | Performed At | + + + | Historically converted procedure from [facility] environment | EXTERNAL LAB | + + + + +---------+ + + | Performing | Address | City/State/Zipcode | Phone Number | | Organization | | | | + +---------+ + + | EXTERNAL LAB | | | | + +---------+ + + Lactic Acid (11/15/2013 5:32 AM PST) + + + + + + | Component | Value | Ref Range | Performed | Pathologist | | | | | At | Signature | + + + + + + | Lactate | 2.5 (H)Comment: Testing | 0.4 - 2.0 | EXTERNAL | | | | performed at [facility];888 | mmol/L | LAB | | | | [address];[place], [place] | | | | | | [address] | | | | + + + [...] EXTERNAL | | | | performed at [facility];888 | | LAB | | | | [address];[place], [place] | | | | | | [address] | | | | + + + [...] | | | | | | ACUTE NC CKTRP PHONED TO | | | | | | ICU GAYLE N AT 0540 BY | | | | | | LJREAD BACK RESULTS | | | | | | VERIFIEDTesting | | | | | | performed at [facility];[address] | | | | | | [address];[place] | | | | | | [address] | | | | + + + [...] EXTERNAL | | | | performed at [facility], [address] | | LAB | | | | [address], | | | | | | [place] [address] | | | | + + + + + + | Red Blood | 3.94Comment: Testing | 3.70 - 5.10 | EXTERNAL | | | Cells | performed at [facility], [address] | M/uL | LAB | | | Counted | [address], | | | | | | [place] [address] | | | | + + + + + + | Hemoglobin | 10.9 (L)Comment: Testing | 11.3 - 15.5 | EXTERNAL | | | | performed at [facility], [address] | g/dL | LAB | | | | [address], | | | | | | [place] [address] | | | | + + + + + + | Hematocrit, | 33.7 (L)Comment: Testing | 34.0 - 46.0 % | EXTERNAL | | | POC | performed at [facility], [address] | | LAB | | | | [address], | | | | | | [place] [address] | | | | + + + + + + | MCV | 85.6Comment: Testing | 80.0 - 100.0 fl | EXTERNAL | | | | performed at [facility], [address] | | LAB | | | | [address], | | | | | | [place] [address] | | | | + + + + + + | MCH | 27.7Comment: Testing | 27.0 - 34.0 pg | EXTERNAL | | | | performed at [facility], [address] | | LAB | | | | [address], | | | | | | [place] [address] | | | | + + + + + + | MCHC | 32.3Comment: Testing | 32.0 - 35.5 | EXTERNAL | | | | performed at [facility], [address] | g/dL | LAB | | | | [address], | | | | | | [place] [address] | | | | + + + + + + | RDW-CV | 37.6Comment: Testing | 37 - 53 fl | EXTERNAL | | | | performed at [facility], [address] | | LAB | | | | [address], | | | | | | [place] [address] | | | | + + + + + + | Platelet | 196Comment: Testing | 150 - 400 K/uL | EXTERNAL | | | Count | performed at [facility], [address] | | LAB | | | Plasma | [address], | | | | | | [place] [address] | | | | + + + + + + | MPV | 7.3Comment: Testing | fl | EXTERNAL | | | | performed at [facility], [address] | | LAB | | | | [address], | | | | | | [place] [address] | | | | + + + + + + | Differentia | AUTOMATEDComment: | | EXTERNAL | | | l Type | Testing performed at | | LAB | | | | [facility], [address] | | | | | | [place] | | | | | | [address] | | | | + + + [...] | | | Serum | performed at [facility];888 | mOsm/kg | LAB | | | | [address];[place], [place] | | | | | | [address] | | | | + + + [...] EXTERNAL | | | | performed at [facility];88 | | LAB | | | | [address];[place] | | | | | | [address] | | | | + + + [...] | | EN LEVEL | performed at [facility];888 | ug/mL | LAB | | | | [address];[place], [place] | | | | | | [address] | | | | + + + [...] EXTERNAL | | | | performed at [facility];888 | mmol/L | LAB | | | | [address];[place] | | | | | | [address] | | | | + + + + + + | K | 3.2 (L)Comment: Testing | 3.5 - 4.9 | EXTERNAL | | | | performed at [facility];888 | mmol/L | LAB | | | | [address];[place] | | | | | | [address] | | | | + + + + + + | Cl | 117 (H)Comment: Testing | 99 - 109 mmol/L | EXTERNAL | | | | performed at [facility];[address] | | LAB | | | | [address];[place] | | | | | | [address] | | | | + + + + + + | CO2 | 13 (LL)Comment: CO2 | 23 - 32 mmol/L | EXTERNAL | | | | PHONED TO AIDEE Butt AT | | LAB | | | | 0520 BY LJREAD BACK | | | | | | RESULTS VERIFIEDTesting | | | | | | performed at [facility];[address] | | | | | | [address];[place] | | | | | | [address] | | | | + + + + + + | Anion Gap | 20Comment: Testing | 5 - 20 mmol/L | EXTERNAL | | | | performed at [facility];[address] | | LAB | | | | [address];[place] | | | | | | [address] | | | | + + + + + + | Glucose, | 130 (H)Comment: Testing | 65 - 99 mg/dL | EXTERNAL | | | Fasting | performed at [facility];[address] | | LAB | | | | [address];[place] | | | | | | [address] | | | | + + + + + + | BUN | 8Comment: Testing | 8 - 25 mg/dL | EXTERNAL | | | | performed at [facility];[address] | | LAB | | | | [address];[place] | | | | | | [address] | | | | + + + + + + | Creatinine | 0.69Comment: Testing | 0.50 - 1.00 | EXTERNAL | | | | performed at [facility];888 | mg/dL | LAB | | | | [address];[place] | | | | | | [address] | | | | + + + + + + | BUN/Creatin | 12Comment: Testing | | EXTERNAL | | | ine Ratio | performed at [facility];[address] | | LAB | | | | [address];[place] | | | | | | [address] | | | | + + + + + + | Calcium | 6.7 (L)Comment: Testing | 8.5 - 10.2 | EXTERNAL | | | | performed at [facility];888 | mg/dL | LAB | | | | [address];[place] | | | | | | [address] | | | | + + + + + + | Protein, | 5.2 (L)Comment: Testing | 6.3 - 8.2 g/dL | EXTERNAL | | | Total | performed at [facility];[address] | | LAB | | | | [address];[place] | | | | | | [address] | | | | + + + + + + | Albumin | 3.3Comment: Testing | 3.3 - 4.8 g/dL | EXTERNAL | | | | performed at [facility];[address] | | LAB | | | | [address];[place] | | | | | | [address] | | | | + + + + + + | Globulin | 1.9Comment: Testing | 1.3 - 4.9 g/dL | EXTERNAL | | | | performed at [facility];[address] | | LAB | | | | [address];[place] | | | | | | [address] | | | | + + + + + + | A/G Ratio | 1.8Comment: Testing | 1.0 - 2.4 | EXTERNAL | | | | performed at [facility];[address] | | LAB | | | | [address];[place] | | | | | | [address] | | | | + + + + + + | Bilirubin | 0.2Comment: Testing | 0.1 - 1.5 mg/dL | EXTERNAL | | | Total | performed at [facility];[address] | | LAB | | | | [address];[place] | | | | | | [address] | | | | + + + + + + | ALP, | 47Comment: Testing | 35 - 115 U/L | EXTERNAL | | | External | performed at [facility];[address] | | LAB | | | | [address];[place] | | | | | | [address] | | | | + + + + + + | AST | 49 (H)Comment: Testing | 10 - 45 U/L | EXTERNAL | | | | performed at [facility];[address] | | LAB | | | | [address];[place] | | | | | | [address] | | | | + + + + + + | ALT | 61Comment: Testing | 10 - 65 U/L | EXTERNAL | | | | performed at [facility];[address] | | LAB | | | | [address];[place] | | | | | | [address] | | | | + + + [...] | | | | | | at [facility];[address];[place] [address] | | | | + + + [...] | | | Fingerstick | performed at [facility];[address] | | LAB | | | | [address];[place] | | | | | | [address] | | | | + + + + + + + + | Specimen | + + | | + + + +---------+ + + | Performing | Address | City/State/Zipcode | Phone Number | | Organization | | | | + +---------+ + + | EXTERNAL LAB | | | | + +---------+ + + ECG 12 lead (11/14/2013 11:55 PM PST) + + + + + + | Component | Value | Ref Range | Performed | Pathologist | | | | | At | Signature | + + + + + + | DIAGNOSIS: | Sinus tachycardiaLow | | EXTERNAL | | | | voltage QRSBorderline | | LAB | | | | ECGNo previous ECGs | | | | | | availableConfirmed by | | | | | | FINESSE NUNEZ ([id number]) on | | | | | | 11/15/2013 3:18:47 PM | | | | + + + + + + + + | Specimen | + + | | + + + + + | Narrative | Performed At | + + + | Historically converted procedure from [facility] environment | EXTERNAL LAB | + + [...] | | LAB | | | | [facility];[address];[place] [address] | | | | + + + + + + | PCO2 ART | 40Comment: Testing | 35 - 45 mmHg | EXTERNAL | | | | performed at [facility];[address] | | LAB | | | | [address];[place] | | | | | | [address] | | | | + + + + + + | PO2 ART | 283 (H)Comment: Testing | 80 - 105 mmHg | EXTERNAL | | | | performed at [facility];[address] | | LAB | | | | [address];[place] | | | | | | [address] | | | | + + + + + + | Lactate, | 3.7 (H)Comment: Testing | 0.36 - 1.25 | EXTERNAL | | | Arterial | performed at [facility];888 | mmol/L | LAB | | | | [address];[place] | | | | | | [address] | | | | + + + + + + | HCO3 ART | 14 (L)Comment: Testing | 22 - 26 mmol/L | EXTERNAL | | | | performed at [facility];[address] | | LAB | | | | [address];[place] | | | | | | [address] | | | | + + + + + + | POC | 15 (L)Comment: Testing | 23 - 27 mEq/L | EXTERNAL | | | APPEARANCE | performed at [facility];[address] | | LAB | | | UA | [address];[place] | | | | | | [address] | | | | + + + + + + | Base | 15 (H)Comment: Testing | 0.0 - 2.0 | EXTERNAL | | | deficit | performed at [facility];888 | mmol/L | LAB | | | | [address];[place] | | | | | | [address] | | | | + + + + + + | O2 SAT ART | 100 (H)Comment: Testing | 95 - 98 % | EXTERNAL | | | | performed at [facility];[address] | | LAB | | | | [address];[place] | | | | | | [address] | | | | + + + + + + | FiO2, POC | 70Comment: Testing | % | EXTERNAL | | | | performed at [facility];[address] | | LAB | | | | [address];[place] | | | | | | [address] | | | | + + + + + + | Comment, | Tidal Volume = | | EXTERNAL | | | POC | 500Comment: Peep = 5Resp | | LAB | | | | Rate = 15Testing | | | | | | performed at [facility];[address] | | | | | | [facility];[place], [place] | | | | | | [address] | | | | + + + [...] | RONALD DOHERTYFAWTHROP XR CHEST 1 VIEW 11/14/2013 11:33 PM [...] Conversion - 06/15/2019 1:42 PM PDT RONALD BRENDATYFAWTHROPXR CHEST 1 | | VIEW11/14/2013 11:33 PM [...] EXTERNAL | | | | performed at [facility];888 | mmol/L | LAB | | | | [address];[place], [place] | | | | | | [address] | | | | + + + [...] | | | (Calc) | performed at [facility];888 | mmol/L | LAB | | | | [address];[place] | | | | | | [address] | | | | + + + + + + | pH, Bld | 7.179 (L)Comment: | 7.300 - 7.450 | EXTERNAL | | | | Testing performed at | | LAB | | | | [facility];[address];[place] [address] | | | | + + + [...] | | | Patient | performed at [facility] | | LAB | | | | [address];[place] | | | | | | [address] | | | | + + + [...] | | | | | performed at [facility];[address] | | | | | | [facility];[place], [place] | | | | | | [address] | | | | + + + [...] EXTERNAL | | | | performed at [facility];[address] | | LAB | | | | [address];[place], [place] | | | | | | [address] | | | | + + + + + + | Red Blood | 4.41Comment: Testing | 3.70 - 5.10 | EXTERNAL | | | Cells | performed at [facility];888 | M/uL | LAB | | | Counted | [address];[place] | | | | | | [address] | | | | + + + + + + | Hemoglobin | 12.7Comment: Testing | 11.3 - 15.5 | EXTERNAL | | | | performed at [facility];888 | g/dL | LAB | | | | [address];[place] | | | | | | [address] | | | | + + + + + + | Hematocrit, | 37.4Comment: Testing | 34.0 - 46.0 % | EXTERNAL | | | POC | performed at [facility];[address] | | LAB | | | | [address];[place] | | | | | | [address] | | | | + + + + + + | MCV | 84.7Comment: Testing | 80.0 - 100.0 fl | EXTERNAL | | | | performed at [facility];[address] | | LAB | | | | [address];[place] | | | | | | [address] | | | | + + + + + + | MCH | 28.8Comment: Testing | 27.0 - 34.0 pg | EXTERNAL | | | | performed at [facility];[address] | | LAB | | | | [address];[place] | | | | | | [address] | | | | + + + + + + | MCHC | 34.0Comment: Testing | 32.0 - 35.5 | EXTERNAL | | | | performed at [facility];[address] | g/dL | LAB | | | | [address];[place] | | | | | | [address] | | | | + + + + + + | RDW-CV | 37.2Comment: Testing | 37 - 53 fl | EXTERNAL | | | | performed at [facility];[address] | | LAB | | | | [address];[place] | | | | | | [address] | | | | + + + + + + | Platelet | 296Comment: Testing | 150 - 400 K/uL | EXTERNAL | | | Count | performed at [facility];[address] | | LAB | | | Plasma | [address];[place] | | | | | | [address] | | | | + + + + + + | MPV | 7.2Comment: Testing | fl | EXTERNAL | | | | performed at [facility];[address] | | LAB | | | | [address];[place] | | | | | | [address] | | | | + + + + + + | Differentia | AUTOMATEDComment: | | EXTERNAL | | | l Type | Testing performed at | | LAB | | | | [facility];[address];[place] [address] | | | | + + + [...] EXTERNAL | | | | performed at [facility];[address] | | LAB | | | | [address];[place], [place] | | | | | | [address] | | | | + + + [...] EXTERNAL | | | | performed at [facility];[address] | | LAB | | | | [address];[place], [place] | | | | | | [address] | | | | + + + [...] | | EN LEVEL | performed at [facility];[address] | ug/mL | LAB | | | | [address];[place] | | | | | | [address] | | | | + + + [...] | | | Total | performed at [facility];[address] | | LAB | | | | [address];[place] | | | | | | [address] | | | | + + + + + + | Albumin | 3.1 (L)Comment: Testing | 3.3 - 4.8 g/dL | EXTERNAL | | | | performed at [facility];[address] | | LAB | | | | [address];[place] | | | | | | [address] | | | | + + + + + + | Bilirubin | 0.2Comment: Testing | 0.1 - 1.5 mg/dL | EXTERNAL | | | Total | performed at [facility];[address] | | LAB | | | | [address];[place] | | | | | | [address] | | | | + + + + + + | Bilirubin | <0.1Comment: Testing | 0.0 - 0.3 mg/dL | EXTERNAL | | | Direct | performed at [facility];[address] | | LAB | | | | [address];[place] | | | | | | [address] | | | | + + + + + + | ALP, | 76Comment: Testing | 35 - 115 U/L | EXTERNAL | | | External | performed at [facility];[address] | | LAB | | | | [address];[place] | | | | | | [address] | | | | + + + + + + | AST | 75 (H)Comment: Testing | 10 - 45 U/L | EXTERNAL | | | | performed at [facility];[address] | | LAB | | | | [address];[place] | | | | | | [address] | | | | + + + + + + | ALT | 67 (H)Comment: Testing | 10 - 65 U/L | EXTERNAL | | | | performed at [facility];[address] | | LAB | | | | [address];[place] | | | | | | [address] | | | | + + + [...] EXTERNAL | | | | performed at [facility];[address] | mmol/L | LAB | | | | [address];[place] | | | | | | [address] | | | | + + + + + + | K | 3.0 (L)Comment: Testing | 3.5 - 4.9 | EXTERNAL | | | | performed at [facility];888 | mmol/L | LAB | | | | [address];[place] | | | | | | [address] | | | | + + + + + + | Cl | 114 (H)Comment: Testing | 99 - 109 mmol/L | EXTERNAL | | | | performed at [facility];888 | | LAB | | | | [address];[place] | | | | | | [address] | | | | + + + + + + | CO2 | 16 (L)Comment: Testing | 23 - 32 mmol/L | EXTERNAL | | | | performed at [facility];888 | | LAB | | | | [address];[place] | | | | | | [address] | | | | + + + + + + | Anion Gap | 16Comment: Testing | 5 - 20 mmol/L | EXTERNAL | | | | performed at [facility];888 | | LAB | | | | [address];[place] | | | | | | [address] | | | | + + + + + + | Glucose, | 187 (H)Comment: Testing | 65 - 99 mg/dL | EXTERNAL | | | Fasting | performed at [facility];888 | | LAB | | | | [address];[place] | | | | | | [address] | | | | + + + + + + | BUN | 10Comment: Testing | 8 - 25 mg/dL | EXTERNAL | | | | performed at [facility];888 | | LAB | | | | [address];[place] | | | | | | [address] | | | | + + + + + + | Creatinine | 0.79Comment: Testing | 0.50 - 1.00 | EXTERNAL | | | | performed at [facility];888 | mg/dL | LAB | | | | [address];[place] | | | | | | [address] | | | | + + + + + + | BUN/Creatin | 13Comment: Testing | | EXTERNAL | | | ine Ratio | performed at [facility];888 | | LAB | | | | [address];[place] | | | | | | [address] | | | | + + + + + + | Calcium | 6.5 (L)Comment: Testing | 8.5 - 10.2 | EXTERNAL | | | | performed at [facility];888 | mg/dL | LAB | | | | [address];[place] | | | | | | [address] | | | | + + + [...] | | | | | | at [facility];[address] [place] [address] | | | | | | Bl;[place] [address] | | | | + + + [...] At | + + + | RONALD KOBEN 1945 [address] HEAD WO [...] Conversion - 06/15/2019 1:42 PM PDT RONALD [id number] years | | FemaleCT HEAD WO CONTRAST11/14/2013 [...] At | + + + | RONALD TORRESTYFAWTHROP XR CHEST 1 VIEW 11/14/2013 8:56 PM [...] Conversion - 06/15/2019 1:42 PM PDT RONALD ROSANAFAWTHROP CHEST 1 | | VIEW11/14/2013 8:56 PM [...] | Testing performed at | | | [facility];[address] [facility];[place] [address] GRAM STAIN | | | GREATER THAN 10 WBCS/LPF | | | LESS THAN 10 SEC/LPF | | | 2+ GRAM POSITIVE COCCI | | | 1+ GRAM POSITIVE RODS | | | Testing performed at [facility] | | | [place] [address] CULTURE | | | 2+ NORMAL UPPER RESPIRATORY CURTIS | | | Testing performed at [facility], [address] | | | [place] [address] REPORT STATUS | | | 11/16/2013 FINAL [...] EXTERNAL | | | | performed at [facility];888 | | LAB | | | | [address];[place], [place] | | | | | | [address] | | | | + + + + + + | RBC, UA | 0-2Comment: Testing | 0 - 5 /hpf | EXTERNAL | | | | performed at [facility];888 | | LAB | | | | [address];[place] | | | | | | [address] | | | | + + + + + + | Epithelial | NONE SEENComment: | /lpf | EXTERNAL | | | Cells | Testing performed at | | LAB | | | | [facility];[address];[place] [address] | | | | + + + + + + | Bacteria, | TRACE (A)Comment: | | EXTERNAL | | | UA | Testing performed at | | LAB | | | | [facility];[address];[place] [address] | | | | + + + [...] EXTERNAL | | | | performed at [facility] | | LAB | | | | [address];[place] | | | | | | [address] | | | | + + + + + + | Clarity | CLEARComment: Testing | | EXTERNAL | | | | performed at [facility];888 | | LAB | | | | [address];[place] | | | | | | [address] | | | | + + + + + + | Specific | 1.004Comment: Testing | 1.001 - 1.035 | EXTERNAL | | | [place], | performed at [facility];888 | | LAB | | | Urine | [address];[place] | | | | | | [address] | | | | + + + + + + | Leukocyte | TRACE (A)Comment: | | EXTERNAL | | | Esterase, | Testing performed at | | LAB | | | Urine | [facility];[address];[place] [address] | | | | + + + + + + | Nitrite, | NEGATIVEComment: Testing | | EXTERNAL | | | Urine | performed at [facility];888 | | LAB | | | | [address];[place] | | | | | | [address] | | | | + + + + + + | Urobilinoge | 0.2Comment: Testing | mg/dL | EXTERNAL | | | n, Urine | performed at [facility];888 | | LAB | | | | [address];[place] | | | | | | [address] | | | | + + + + + + | Protein, | NEGATIVEComment: Testing | mg/dL | EXTERNAL | | | Urine | performed at [facility];888 | | LAB | | | | [address];[place] | | | | | | [address] | | | | + + + + + + | pH, Urine | 5.0Comment: Testing | 4.6 - 8.0 | EXTERNAL | | | | performed at [facility];[address] | | LAB | | | | [address];[place] | | | | | | [address] | | | | + + + + + + | Blood, | NEGATIVEComment: Testing | | EXTERNAL | | | Urine | performed at [facility];888 | | LAB | | | | [address];[place] | | | | | | [address] | | | | + + + + + + | Ketones | NEGATIVEComment: Testing | mg/dL | EXTERNAL | | | | performed at [facility];888 | | LAB | | | | [address];[place] | | | | | | [address] | | | | + + + + + + | Bilirubin, | NEGATIVEComment: Testing | | EXTERNAL | | | Urine | performed at [facility];[address] | | LAB | | | | [address];[place] | | | | | | [address] | | | | + + + + + + | Glucose, | NEGATIVEComment: Testing | mg/dL | EXTERNAL | | | Urine | performed at [facility];888 | | LAB | | | | [address];[place], [place] | | | | | | [address] | | | | + + + [...] EXTERNAL LAB | | Testing performed at [address];[place] [address] MRSA PCR | | | NEGATIVE Testing performed at | | | [address];[place] [address] | | + + + + +---------+ [...] | | | Fingerstick | performed at [facility];888 | | LAB | | | | [address];[place] | | | | | | [address] | | | | + + + [...]
--- OUTSIDE RECORDS SUMMARY | ~2020-03-05 | XMS | Encounter Summary ---
Demographics + + + | Address | [address] | | | [place] [address] | + + + | Home Phone [...] Providers + +------+ + | Care Nurse Leader Name | Role | Phone [...] | | [address] | [place] [address] | | | | | [place] | [phone] | | | | | [address] | | | | | | [phone] | | | +--------+ + + + [...] [place] | | | | | | [address] | | | | | | | | +--------+---------+ + + + | 04/03/ | Office | Cardiology | Zuleyka Castillo DO | | | 2020 | Visit | | [address] | | | | | | [place] | | | | | | [address] | | | | | | | | +--------+---------+ + + + documented as of this encounter Visit Diagnoses Not on filedocumented in this encounter"
--- OUTSIDE RECORDS SUMMARY | ~2020-03-05 | XMS | Encounter Summary ---
Demographics + + + | Address | [address] | | | [place] [address] | + + + | Home Phone [...] Team Providers + +------+ + | Care Abstract Writer Name | Role | Phone | [...] | | | [place], [place] | [address] | | | | | [address] | | | | | | [phone] | | | +--------+ + + + [...] [place] | | | | | | [address] | | | | | | | | +--------+---------+ + + + | 04/03/ | Office | Cardiology | Zuleyka Castillo DO | | | 2019 | Visit | | [address] | | | | | | [place] | | | | | | [address] | | | | | | | | +--------+---------+ + + + documented as of this encounter Visit Diagnoses Not on filedocumented in this encounter"
--- OUTSIDE RECORDS SUMMARY | ~2020-03-05 | XMS | Encounter Summary ---
Demographics + + + | Address | [address] | | | [place] [address] | + + + | Home Phone [...] Team Providers + +------+ + | Care Sintering Press Operator Name | Role | Phone [...] + + | 08/31/ | Telephone | [facility] | Alfredo Casillas DO | Triage | | 2019 | | [facility] | [address] | | | | | MEDICINE [place] | [place] [address] | | | | | [address] | [phone] | | | | | [place], [place] | | | | | | [address] | | | | | | [phone] | | | +--------+ + + + [...] [place] | | | | | | [address] | | | | | | | | +--------+---------+ + + + | 04/03/ | Office | Cardiology | Zuleyka Castillo DO | | | 2020 | Visit | | [address] | | | | | | [place] | | | | | | [address] | | | | | | | | +--------+---------+ + + + documented as of this encounter Visit Diagnoses Not on filedocumented in this encounter"
--- OUTSIDE RECORDS SUMMARY | ~2020-03-05 | XMS | Encounter Summary ---
Demographics + + + | Address | [address] | | | [place] [address] | + + + | Home Phone [...] Providers + +------+ + | Care Chemical Machine Tender Name | Role | Phone [...] + + | 07/12/ | Telephone | [facility] [place] | [place], | Results | | 2016 | | PHYSIATRY [address] | [address] | | | | | [address] | [address] | | | | | [place], [place] | [place] [address] | | | | | [address] | [phone] | | | | | [phone] | | | +--------+ + + + [...] [place] | | | | | | [address] | | | | | | | | +--------+---------+ + + + | 04/03/ | Office | Cardiology | Zuleyka Castillo DO | | | 2020 | Visit | | [address] | | | | | | [place] | | | | | | [address] | | | | | | | | +--------+---------+ + + + documented as of this encounter Visit Diagnoses Not on filedocumented in this encounter"
--- OUTSIDE RECORDS SUMMARY | ~2020-03-05 | XMS | Encounter Summary ---
Demographics + + + | Address | [address] | | | [place] [address] | + + + | Home Phone [...] Providers + +------+ + | Care Medical Officer Psychiatry Name | Role | Phone | + [...] | | | | CENTER [address] | [place] | Dx) | | | | [place] | [id number] | | | | | [address] | | | | | | [phone] | | | +--------+ + + + [...] [place] | | | | | | [address] | | | | | | | | +--------+---------+ + + + | 04/03/ | Office | Cardiology | Zuleyka Castillo DO | | | 2019 | Visit | | [address] | | | | | | [place] | | | | | | [address] | | | | | | | [...]
--- OUTSIDE RECORDS SUMMARY | ~2020-03-05 | XMS | Encounter Summary ---
Demographics + + + | Address | [address] | | | [place] [address] | + + + | Home Phone [...] Providers + +------+ + | Care Concrete Form Setter Name | Role | Phone | + +------+ + PCP | Unavailable | + +------+ + Encounter Details +--------+ + + + + | Date | Type | Department | Care Team | Description | +--------+ + + + + | 09/07/ | Hospital | [facility] | | | | 1998 - | Encounter | MED CTR CANCER | | | | | | [address] | | | | 10/30/ | | [place] | | | | 1998 | | [address] | | | | | | [phone] | | | +--------+ + + + [...] [place] | | | | | | [address] | | | | | | | | +--------+---------+ + + + | 04/03/ | Office | Cardiology | Zuleyka Castillo DO | | | 2020 | Visit | | [address] | | | | | | [place] | | | | | | [address] | | | | | | | | +--------+---------+ + + + documented as of this encounter Visit Diagnoses Not on filedocumented in this encounter"
--- OUTSIDE RECORDS SUMMARY | ~2020-03-05 | XMS | Encounter Summary ---
Demographics + + + | Address | [address] | | | [place] [address] | + + + | Home Phone [...] Providers + +------+ + | Care Manager Change Name | Role | Phone | + [...] Thoracic or | [place], | [address] | | | | | lumbosacral | Shay Mukherjee MD | [place], | | | | | neuritis or | [address] | [place] | | | | | | [place] | [address] | | | | | radiculitis, | [place] | Phone: | | | | | unspecified | [address] | [phone] | | | | | Procedures | Phone: | Fax: | | | | | NC INJECT | [phone] | [phone] | | | | | ANES/STEROID | Fax: | | | | | | FORAMEN | [phone] | | | | | | LUMBAR/SACRA [...] + + | 04/18/ | Hospital | [facility] | [place], | Left lumbar | | 2013 | Encounter | MED CTR XRAY [address] | [address] | radiculopathy; | | | | [place] | [address] | Chronic low back | | | | [place] [address] | [place] [address] | pain; Facet | | | | [phone] | [phone] | arthritis of lumbar | | | | | | region; Foram[place] | | | | | Community Marketing Coordinator, [facility] | stenosis of lumbar | | [...] | | 2019 | Visit | | [address] | | | | | | [place] | | | | | | [address] | | | | | | | | +--------+---------+ + + + | 04/03/ | Office | Cardiology | Zuleyka Castillo DO | | 2019 | Visit | | [address] | | | | | | [place], [place] | | | | | | [address] | | | | | | | [...] 04/18/2014 Transforaminal Epidural Steroid Injection Diagnosis: | [place] | | Lumbar radiculopathy ICD-9 Code 724.4 Kori Harshal | [facility] | | Joanne presents to the fluoroscopy suite for a [facility] | | fluoroscopically-guided left L5-S1 [...] ST. | [address] | [place] | [phone] | | [facility] | | [address] | | | - IMAGING | | [...] | | (Comment | | Intramuscular, ONCE, [facility] 04/18/14 | | PM PDT | | [...]
--- OUTSIDE RECORDS SUMMARY | ~2020-03-05 | XMS | Encounter Summary ---
Demographics + + + | Address | [address] | | | [place] [address] | + + + | Home Phone [...] Providers + +------+ + | Care Mission Coordinator Name | Role | Phone | + +------+ + | Wendi Aiken | PCP | | + +------+ + Encounter Details +--------+ + + + + | Date | Type | Department | Care Team | Description | +--------+ + + + + | 06/07/ | Hospital | [facility] | Conversion | | | 2018 | Encounter | [facility] | Transaction, | | | | | CLINIC [address] | Provider Unknown | | | | | [place], [place] | | | | | | [address] | (Fax) | | | | | [phone] | | | +--------+ + + + [...] [place] | | | | | | [id number] | | | | | | | | +--------+---------+ + + + | 04/03/ | Office | Cardiology | Zuleyka Castillo DO | | | 2019 | Visit | | [address] | | | | | | [place] | | | | | | [address] | | | | | | | [...] + + + | Red Blood | 4.30 | 3.70 - 5.10 | EXTERNAL | | | Cells | | M/uL | LAB | | | Counted | | | [...] | | | Basophils | performed at [facility], [address] | K/uL | LAB | | | | [address], | | | | | | [place] [address] | | | | + + + [...] | | | | performed at [facility], [address] | | | | | | [address], | | | | | | [place] [address] | | | | + + + [...] + + | Historically converted procedure from [employer] Epic environment | EXTERNAL LAB | + + + + +---------+ + + | Performing | Address | City/State/Zipcode | Phone Number | | Organization | | | | + +---------+ + + | EXTERNAL LAB | | | | + +---------+ + + documented in this encounter Visit Diagnoses Not on filedocumented in this encounter
--- OUTSIDE RECORDS SUMMARY | ~2020-03-05 | XMS | Encounter Summary ---
Demographics + + + | Address | [address] | | | [place] [address] | + + + | Home Phone [...] Team Providers + +------+ + | Care Seed Packer Name | Role | Phone | [...] | | | [address] | [place] [address] | | | | | [place], [place] | [phone] | | | | | [address] | | | | | | [phone] | | | +--------+ + + + [...] [place] | | | | | | [id number] | | | | | | | | +--------+---------+ + + + | 04/03/ | Office | Cardiology | Zuleyka Castillo DO | | 2019 | Visit | | [address] | | | | | | [place] | | | | | | [address] | | | | | | | [...]
--- OUTSIDE RECORDS SUMMARY | ~2020-03-05 | XMS | Encounter Summary ---
Demographics + + + | Address | [address] | | | [place] [address] | + + + | Home Phone [...] Providers + +------+ + | Care Instrument Inspector Name | Role | Phone | [...] | Closed | | | Diagnoses | Laraiso, | Motaghi, | | | | | Intractable | Denys [place], DO | Alfredo, DO | | | | | back pain | [address] | | | | | Closed | [address] | [address], | | | | | compression | DRIVE | [place] [address] | | | | | fracture of | [place], | Phone: | | | | | fifth lumbar | [place] [address] | [phone] | | | | | vertebra | Phone: | Fax: | | | | | sequela | [phone] | [phone] | | | | | Degenerative | Fax: | | | | | | lumbar | [phone] | | | | | | spinal [...] | | | unspecified | | | +--------+--------+ + + + + Encounter Details +--------+---------+ + + + | Date | Type | Department | Care Team | Description | +--------+---------+ + + + | 09/18/ | Office | [facility] | Alfredo Casillas, DO | S/P insertion of | | 2019 | Visit | [facility] | [address] | spinal cord | | | | [address] | [place] [address] | stimulator (Primary | | | | [address] [place], | [phone] | Dx); Spinal stenosis | | | | [place] [address] | | of lumbosacral | | | | [phone] | | region; Lumbar | | | [...] Casillas DO - 09/18/2019 9:10 AM PST [facility]: Interventional Pain Management 09/18/2019 Kori Mcintosh-Fawthrop 1945 Chief Complaint Patient presents with Follow-up [...] Date Acid reflux disease Acute renal failure ([facility]) April 2013 Adverse effect of anesthesia hx hallucinations after anesthesia x 3 yrs ago. Anesthesia hallucinated after bladder repair Arthralgia Arthritis Asthma Asthma Back pain Cancer ([facility]) 2004 breast Cataract Cerebrovascular accident (CVA) ([facility]) no per pt Chronic back pain Chronic back pain Chronic constipation Concussion 07/2015 Preceeded by seizure Constipation COPD (chronic obstructive pulmonary disease) ([facility]) Degenerative disc disease Depression Depression Diabetes mellitus ([facility]) Diabetes mellitus, type 2 ([facility]) diet controlled Diabetes type 2, controlled ([facility]) diet controlled Diarrhea Disorder of [...] Procedure: KYPHOPLASTY; Surgeon: Alfredo Casillas DO; Location: [facility]; Service: Pa in Management; Laterality: N/A; L5 FRACTURE SURGERY ANKLE HERNIA REPAIR HYSTERECTOMY HYSTERECTOMY LAMINECTOMY N/A 08/03/2019 Procedure: LAMINOTOMY THORACIC / LUMBAR W/ PLACEMENT SPINAL CORD STIMULATOR; Surgeon: Suly Hutchins MD; Location[facility] OTHER SURGICAL HISTORY EPIDURAL STEROID [...] (four) times daily. 09/17/19 Yes Denys G Laraiso, DO Multiple Vitamins-Minerals (MULTIVITAMIN WITH MINERALS) tablet Take 1 tablet by mouth daily . Yes Historical Provider, naloxone (NARCAN) 4 mg/nasal spray 1 spray by Nasal route as needed for Decreased Responsiv eness (May repeat with second device into other nostril after 2 minutes). 06/18/19 Yes Denys Gloveraiso, DO nitroglycerin (NITROSTAT) 0.4 mg SL tablet [...] 2 (two) times daily. Yes Historica l Provider, rOPINIRole (REQUIP) 2 MG tablet TAKE 1 [...] level: Not on file Occupational History Occupation: [employer] Social Needs Financial resource strain: Not on [...] file Gets together: Not on file Attends nondenominational service: Not on file Active member of [...] did refer her to an orthopedist in [place] where she randal es; so, we will [...] 09/18/2019 This document has been prepared with RunRev voice recognition system. The possibility of "s ound alike" phone engineer errors, and additions, or deletions may [...] [place] | | | | | | [id number] | | | | | | | | +--------+---------+ + + + | 04/03/ | Office | Cardiology | Zuleyka Castillo DO | | | 2019 | Visit | | [address] | | | | | | [place] | | | | | | [address] | | | | | | | [...]
--- OUTSIDE RECORDS SUMMARY | ~2020-03-05 | XMS | Encounter Summary ---
Demographics + + + | Address | [address] | | | [place] [address] | + + + | Home Phone [...] Providers + +------+ + | Care Veterinary Receptionist Name | Role | Phone | + +------+ + | Concepción Gallardo NP | PCP | | + +------+ + Encounter Details +--------+ + + + + | Date | Type | Department | Care Team | Description | +--------+ + + + + | 11/26/ | Emergency | [facility] | Garth Pedroza MD | Convulsions, | | 2016 | | MEDICAL CENTER | [address] | unspecified | | | | EMERGENCY CENTER | [place] [address] | convulsion type | | | | [address] | [phone] | ([facility]); Generalized | | | | [place], [place] | | weakness | | | | [address] | | | | | | [phone] | | | +--------+ + + + [...] [place] | | | | | | [address] | | | | | | | | +--------+---------+ + + + | 04/03/ | Office | Cardiology | Zuleyka Castillo DO | | | 2019 | Visit | | [address] | | | | | | [place] | | | | | | [id number] | | | | | | | [...] | | LAB | | | | [facility] [address] | | | | | | [address];[place] [address] | | | | + + + + + + | Clarity | CLEARComment: Testing | | EXTERNAL | | | | performed at [facility];[address] | | LAB | | | | [address];[place] | | | | | | [address] | | | | + + + + + + | Specific | 1.008Comment: Testing | 1.002 - 1.030 | EXTERNAL | | | Holly, | performed at [facility];[address] | | LAB | | | Urine | [address];[place] | | | | | | [address] | | | | + + + + + + | Leukocyte | NEGATIVEComment: Testing | | EXTERNAL | | | Esterase, | performed at [facility];[address] | | LAB | | | Urine | [address];[place] | | | | | | [address] | | | | + + + + + + | Nitrite, | NEGATIVEComment: Testing | | EXTERNAL | | | Urine | performed at [facility];[address] | | LAB | | | | [address];[place] | | | | | | [address] | | | | + + + + + + | Urobilinoge | NORMALComment: Testing | mg/dL | EXTERNAL | | | n, Urine | performed at [facility];[address] | | LAB | | | | [address];[place] | | | | | | [address] | | | | + + + + + + | Protein, | NEGATIVEComment: Testing | mg/dL | EXTERNAL | | | Urine | performed at [facility];[address] | | LAB | | | | [address];[place] | | | | | | [address] | | | | + + + + + + | pH, Urine | 5.0Comment: Testing | 5.0 - 8.0 | EXTERNAL | | | | performed at [facility];[address] | | LAB | | | | [address];[place] | | | | | | [address] | | | | + + + + + + | Blood, | NEGATIVEComment: Testing | | EXTERNAL | | | Urine | performed at [facility];[address] | | LAB | | | | [address];[place] | | | | | | [address] | | | | + + + + + + | Ketones | NEGATIVEComment: Testing | mg/dL | EXTERNAL | | | | performed at [facility];[address] | | LAB | | | | [address];[place] | | | | | | [address] | | | | + + + + + + | Bilirubin, | NEGATIVEComment: Testing | | EXTERNAL | | | Urine | performed at [facility];[address] | | LAB | | | | [address];[place] | | | | | | [address] | | | | + + + + + + | Glucose, | NEGATIVEComment: Testing | mg/dL | EXTERNAL | | | Urine | performed at [facility];[address] | | LAB | | | | [address];[place] | | | | | | [address] | | | | + + + [...] (500), | | | | | | assistant editor DIANA LARKIN (2) | | | | | | on 11/26/2015 5:46:08 PM | | | | | | | | | | + + + + + + + + | Specimen | + + | | + + + + + | Narrative | Performed At | + + + | [facility]ically [facility] Epic [facility] | EXTERNAL LAB | + [...] EXTERNAL | | | | performed at [facility];888 | K/uL | LAB | | | | [address];[place] | | | | | | [address] | | | | + + + + + -+ | Red Blood | 4.61Comment: Testing | 3.70 - 5.10 | EXTERNAL | | | Cells | performed at [facility];888 | M/uL | LAB | | | Counted | [address];[place] | | | | | | [address] | | | | + + + + + -+ | Hemoglobin | 13.4Comment: Testing | 11.3 - 15.5 | EXTERNAL | | | | performed at [facility];888 | g/dL | LAB | | | | [address];[place] | | | | | | [address] | | | | + + + + + -+ | Hematocrit, | 40.4Comment: Testing | 34.0 - 46.0 % | EXTERNAL | | | POC | performed at [facility];[address] | | LAB | | | | [address];[place] | | | | | | [address] | | | | + + + + + -+ | MCV | 87.7Comment: Testing | 80.0 - 100.0 fl | EXTERNAL | | | | performed at [facility];[address] | | LAB | | | | [address];[place] | | | | | | [address] | | | | + + + + + -+ | MCH | 29.1Comment: Testing | 27.0 - 34.0 pg | EXTERNAL | | | | performed at [facility];[address] | | LAB | | | | [address];[place] | | | | | | [address] | | | | + + + + + -+ | MCHC | 33.2Comment: Testing | 32.0 - 35.5 | EXTERNAL | | | | performed at [facility];888 | g/dL | LAB | | | | [address];[place] | | | | | | [address] | | | | + + + + + -+ | RDW-CV | 39.8Comment: Testing | 37 - 53 fl | EXTERNAL | | | | performed at [facility];[address] | | LAB | | | | [address];[place] | | | | | | [address] | | | | + + + + + -+ | Platelet | 287Comment: Testing | 150 - 400 K/uL | EXTERNAL | | | Count | performed at [facility];888 | | LAB | | | Plasma | [address];[place] | | | | | | [address] | | | | + + + + + -+ | MPV | 7.7Comment: Testing | fl | EXTERNAL | | | | performed at [facility];[address] | | LAB | | | | [address];[place] | | | | | | [address] | | | | + + + + + -+ | Differentia | AUTOMATEDComment: | | EXTERNAL | | | l Type | Testing performed at | | LAB | | | | [facility];[address] | | [address];[place] [address] | | | | + + + + + -+ | % Segmented | 45.19Comment: Testing | % | EXTERNAL | | | | performed at [facility];[address] | | LAB | | | Neutrophils | [address];[place] | | | | | | [address] | | | | + + + + + -+ | % | 44.63Comment: Testing | % | EXTERNAL | | | Lymphocytes | performed at [facility];[address] | | LAB | | | | [address];[place] | | | | | | [address] | | | | + + + + + -+ | % Monocytes | 7.42Comment: Testing | % | EXTERNAL | | | | performed at [facility];[address] | | LAB | | | | [address];[place] | | | | | | [address] | | | | + + + + + -+ | % | 1.58Comment: Testing | % | EXTERNAL | | | Eosinophils | performed at [facility];[address] | | LAB | | | | [address];[place] | | | | | | [address] | | | | + + + + + -+ | % Basophils | 1.18Comment: Testing | % | EXTERNAL | | | | performed at [facility];[address] | | LAB | | | | [address];[place] | | | | | | [address] | | | | + + + + + -+ | Absolute | 3.08Comment: Testing | 1.90 - 7.40 | EXTERNAL | | | Segmented | performed at [facility];888 | K/uL | LAB | | | Neutrophils | [address];[place] | | | | | | [address] | | | | + + + + + -+ | Absolute | 3.04Comment: Testing | 1.00 - 3.90 | EXTERNAL | | | Lymphocytes | performed at [facility];888 | K/uL | LAB | | | | [address];[place] | | | | | | [address] | | | | + + + + + -+ | Absolute | 0.51Comment: Testing | 0.00 - 0.80 | EXTERNAL | | | Monocytes | performed at [facility];888 | K/uL | LAB | | | | [address];[place] | | | | | | [address] | | | | + + + + + -+ | Absolute | 0.11Comment: Testing | 0.00 - 0.50 | EXTERNAL | | | Eosinophils | performed at [facility];888 | K/uL | LAB | | | | [address];[place] | | | | | | [address] | | | | + + + + + -+ | Absolute | 0.08Comment: Testing | 0.00 - 0.10 | EXTERNAL | | | Basophils | performed at [facility];888 | K/uL | LAB | | | | [address];[place] | | | | | | [address] | | | | + + + + + -+ | Na | 139Comment: Testing | 135 - 143 | EXTERNAL | | | | performed at [facility];888 | mmol/L | LAB | | | | [address];[place] | | | | | | [address] | | | | + + + + + -+ | K | 4.1Comment: SLT | 3.5 - 4.9 | EXTERNAL | | | | HEMOLYSISTesting | mmol/L | LAB | | | | performed at [facility];[address] | | | | | | [address];[place] | | | | | | [address] | | | | + + + + + -+ | Cl | 106Comment: Testing | 99 - 109 mmol/L | EXTERNAL | | | | performed at [facility];[address] | | LAB | | | | [address];[place] | | | | | | [address] | | | | + + + + + -+ | CO2 | 28Comment: Testing | 23 - 32 mmol/L | EXTERNAL | | | | performed at [facility];[address] | | LAB | | | | [address];[place] | | | | | | [address] | | | | + + + + + -+ | Anion Gap | 9Comment: Testing | 5 - 20 mmol/L | EXTERNAL | | | | performed at [facility];[address] | | LAB | | | | [address];[place] | | | | | | [address] | | | | + + + + + -+ | Glucose, | 78Comment: Testing | 65 - 99 mg/dL | EXTERNAL | | | Fasting | performed at [facility];[address] | | LAB | | | | [address];[place] | | | | | | [address] | | | | + + + + + -+ | BUN | 16Comment: Testing | 8 - 25 mg/dL | EXTERNAL | | | | performed at [facility];[address] | | LAB | | | | [address];[place] | | | | | | [address] | | | | + + + + + -+ | Creatinine | 0.82Comment: Testing | 0.50 - 1.00 | EXTERNAL | | | | performed at [facility];888 | mg/dL | LAB | | | | [address];[place] | | | | | | [address] | | | | + + + + + -+ | BUN/Creatin | 20Comment: Testing | | EXTERNAL | | | ine Ratio | performed at [facility];[address] | | LAB | | | | [address];[place] | | | | | | [address] | | | | + + + + + -+ | Calcium | 8.3 (L)Comment: Testing | 8.5 - 10.5 | EXTERNAL | | | | performed at [facility];888 | mg/dL | LAB | | | | [address];[place] | | | | | | [address] | | | | + + + + + -+ | Protein, | 7.3Comment: Testing | 6.3 - 8.2 g/dL | EXTERNAL | | | Total | performed at [facility];[address] | | LAB | | | | [address];[place] | | | | | | [address] | | | | + + + + + -+ | Albumin | 3.7Comment: Testing | 3.3 - 4.8 g/dL | EXTERNAL | | | | performed at [facility];888 | | LAB | | | | [address];[place] | | | | | | [address] | | | | + + + + + -+ | Globulin | 3.6Comment: Testing | 1.3 - 4.9 g/dL | EXTERNAL | | | | performed at [facility];888 | | LAB | | | | [address];[place] | | | | | | [address] | | | | + + + + + -+ | A/G Ratio | 1.0Comment: Testing | 1.0 - 2.4 | EXTERNAL | | | | performed at [facility];888 | | LAB | | | | [address];[place] | | | | | | [address] | | | | + + + + + -+ | Bilirubin | 0.2Comment: Testing | 0.1 - 1.5 mg/dL | EXTERNAL | | | Total | performed at [facility];[address] | | LAB | | | | [address];[place] | | | | | | [address] | | | | + + + + + -+ | ALP, | 69Comment: Testing | 35 - 115 U/L | EXTERNAL | | | External | performed at [facility];888 | | LAB | | | | [address];[place] | | | | | | [address] | | | | + + + + + -+ | AST | 22Comment: SLT | 10 - 45 U/L | EXTERNAL | | | | HEMOLYSISTesting | | LAB | | | | performed at [facility];[address] | | | | | | [address];[place] | | | | | | [address] | | | | + + + + + -+ | ALT | 31Comment: Testing | 10 - 65 U/L | EXTERNAL | | | | performed at [facility];[address] | | LAB | | | | [address];[place] | | | | | | [address] | | | | + + + [...] | | | | | | at [facility];[address];[place] [address] | | | | + + + + + -+ | CK, Total | 128Comment: Testing | 30 - 240 U/L | EXTERNAL | | | | performed at [facility];[address] | | LAB | | | | [address];[place] | | | | | | [address] | | | | + + + [...] | | | | | performed at [facility];[address] | | | | | | [address];[place] | | | | | | [address] | | | | + + + + + -+ | aPTT, | 27Comment: Testing | 23 - 32 seconds | EXTERNAL | | | Patient | performed at [facility];[address] | | LAB | | | | [address];[place] | | | | | | [address] | | | | + + + + + -+ | CK-MB | 3.2Comment: Testing | 0.5 - 3.6 ng/mL | EXTERNAL | | | | performed at [facility];[address] | | LAB | | | | [address];[place] | | | | | | [address] | | | | + + + [...] | | | Fingerstick | performed at [facility];888 | | LAB | | | | [address];[place], [place] | | | | | | [address] | | | | + + + [...]
--- OUTSIDE RECORDS SUMMARY | ~2020-03-05 | XMS | Encounter Summary ---
Demographics + + + | Address | [address] | | | [place] [address] | + + + | Home Phone [...] Providers + +------+ + | Care Cutter Wet Machine Name | Role | Phone | + +------+ + | Miquel Calhoun MD | PCP | | + +------+ + Encounter Details +--------+ + + + + | Date | Type | Department | Care Team | Description | +--------+ + + + + | 09/18/ | Hospital | [facility] | Shay Dietz | | | 2012 | Encounter | MED CTR XRAY [address] | [address], [address] | | | | | [place] | [place], [place] | | | | | [place] [address] | [address] | | | | | [phone] | | | +--------+ + + + [...] [place] | | | | | | [id number] | | | | | | | | +--------+---------+ + + + | 04/03/ | Office | Cardiology | Zuleyka Castillo DO | | | 2019 | Visit | | [address] | | | | | | [place] | | | | | | [address] | | | | | | | | +--------+---------+ + + + documented as of this encounter Visit Diagnoses Not on filedocumented in this encounter"
--- OUTSIDE RECORDS SUMMARY | ~2020-03-05 | XMS | Encounter Summary ---
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 | | | | | | idiopathic [...] | | | [place], | [address] | | | | | Trochanteric | [place], | [place], | | | | | bursitis of | PA-C [address] | [place] | | | | | right hip | [address], | [address] | | | | | Procedures | [address] | Phone: | | | | | [place] | [place] | [phone] | | | | | Joint | [address] | Fax: | | | | | Injection | Phone: | [phone] | | | | | Right | [phone] | | | | | | | Fax: | | | | | | | [phone] | | +--------+--------+ + + + + [...] + + | 02/08/ | Office | [facility] | [place], | Chronic bilateral | | 2017 | Visit | PHYSIATRY [address] | [address] | low back pain with | | | | [address] | [address], [address] | right-sided sciatica | | | | [place] | [place] [address] | (Primary Dx); Facet | | | | [address] | [phone] | arthritis of lumbar | | | | [phone] | | region (HCC); | | | [...] of blood sugars if you are diabetic. residential risk can lead to osteoporosis which is [...] of the procedure you must provide a tank driver to take you home. For [...] working more h ours due to the [employer] up. Her pain back is worse [...] has no apparent deficits with short or meterman memory. 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 Unfortunately she lola nues to have [...] [place] | | | | | | [address] | | | | | | | | +--------+---------+ + + + | 04/03/ | Office | Cardiology | Zuleyka Castillo DO | | | 2019 | Visit | | [address] | | | | | | [place] | | | | | | [address] | | | | | | | [...] Code M47.816 and ICD-10 Kori | [facility] [place] | | Harshal Rubio presents to the [...] [address] | [place] | [phone] | | [facility] | | [address] | | | - IMAGING | | [...]
--- OUTSIDE RECORDS SUMMARY | ~2020-03-05 | XMS | Encounter Summary ---
Demographics + + + | Address | [address] | | | [place] [address] | + + + | Home Phone [...] Team Providers + +------+ + | Care Paper Tube Machine Operator Name | Role | Phone [...] | [place], [place] | [place] [address] | | | | | [address] | [phone] | | | | | [phone] | | | +--------+ + + + [...] [place] | | | | | | [address] | | | | | | | | +--------+---------+ + + + | 04/03/ | Office | Cardiology | Zuleyka Castillo DO | | | 2020 | Visit | | [address] | | | | | | [place] | | | | | | [address] | | | | | | | | +--------+---------+ + + + documented as of this encounter Visit Diagnoses Not on filedocumented in this encounter"
--- OUTSIDE RECORDS SUMMARY | ~2020-03-05 | XMS | Encounter Summary ---
Demographics + + + | Address | [address] | | | [place] [address] | + + + | Home Phone [...] Providers + +------+ + | Care Manufacturing Controller Name | Role | Phone | + [...] Chronic low | [place], | [address] | | | | | back pain | Shay Mukherjee MD | [place], | | | | | Lumbar | [address] | [place] | | | | | radiculopath | [place] | [address] | | | | | y | [place] | Phone: | | | | | Procedures | [address] | [phone] | | | | | MRI Lumbar | Phone: | Fax: | | | | | Spine wo | [phone] | [phone] | | | | | Contrast | Fax: | | | | | | MRI | [phone] | | +--------+--------+ + + + + [...] [address] | [address] [place] | Lumbar radiculopathy | | | | [place] | [address] | | | | | [address] | | | | | | [phone] | | | +--------+ + + + [...] [place] | | | | | | [address] | | | | | | | | +--------+---------+ + + + | 04/03/ | Office | Cardiology | Zuleyka Castillo DO | | | 2019 | Visit | | [address] | | | | | | [place] | | | | | | [address] | | | | | | | [...] + | MISCELLANEOUS LAB | | | [phone] | + +---------+ + + | MISCELANIOUS LAB | | | [phone] | + +---------+ + + documented in this encounter Visit Diagnoses + + | Diagnosis | + + | Chronic low back pain - Primary Lumbago | + + | Lumbar radiculopathy Thoracic or lumbosacral neuritis or radiculitis, unspecified | + + documented in this encounter"
--- OUTSIDE RECORDS SUMMARY | ~2020-03-05 | XMS | Encounter Summary ---
Demographics + + + | Address | [address] | | | [place] [address] | + + + | Home Phone [...] Team Providers + +------+ + | Care Litigation Counsel Name | Role | Phone | + [...] | Lumbar | [place], | [address] | | | | | spondylosis | Shay Mukherjee MD | [place], | | | | | Right hip | [address] | [place] | | | | | pain | [place] | [address] | | | | | Procedures | [place] | Phone: | | | | | [place] INJ | [address] | [phone] | | | | | DX/THER AGNT | Phone: | Fax: | | | | | [place] | [phone] | [phone] | | | | | FACET JOINT, | Fax: | | | | | | LUMBAR/SAC, | [phone] | | | | | | 1ST LEVEL | | | | | | | [place] | | | | | | | TRIAMCINOLON | | | | | | | E ACET INJ | | | | | | | NOS, 10 MG | | | | | | | DC | | | | | | [...] + + | 02/08/ | Hospital | [facility] | Shahnazdanatalycz, | Trochanteric | | 2016 | Encounter | MED CTR XRAY [address] | [address] | bursitis of right | | | | [place] | [facility], [address] | hip (Primary Dx); | | | | [place] [address] | [place] [address] | Chronic bilateral | | | | [phone] | [phone] | low back pain with | | | | | | right-sided | | | | | [place] | sciatica; Facet | | | | | [place] | arthritis of lumbar | | | [...] [place]ILL | | | | | | [facility] | | | | | | [address] | | | | | | | | +--------+---------+ + + + | 04/03/ | Office | Cardiology | Zuleyka Castillo DO | | | 2020 | Visit | | [address] | | | | | | [address] [place] [place] [address] | | | | | | [address] | | | | | | | [...] Trochanteric Bursitis ICD-10 Code M47.816 and ICD-10 [place] | [facility] | | Harshal Rubio presents to the [...] [address] | [place] | [phone] | | [facility] | | [address] | | | - IMAGING | | [...] | | | | | Other, ONCE, 02/08/17 at 1330, | | PM PDT | | | | | For 1 dose | | | | | | + +--------+ +-------+------+------+ +---+---+ | | | +---+---+ + +-------+ +-------+---+---+ | lidocaine (PF) 1% injection 2 | Given | 02/09/20 | 2 mLs | | | | mL 2 mL, Other, ONCE, Tue | | 17 1:27 | | | | | 02/08/17 [...]
--- OUTSIDE RECORDS SUMMARY | ~2020-03-05 | XMS | Encounter Summary ---
Demographics + + + | Address | [address] | | | [place] [address] | + + + | Home Phone [...] Team Providers + +------+ + | Care Nursery Laborer Name | Role | Phone | [...] + + | 08/05/ | Office | [facility] | [place], | Foraminal stenosis | | 2013 | Visit | PHYSIATRY [address] | [address] | of lumbar region - | | | | [address] | [address] | left L5-S1 (Primary | | | | [place], [place] | [place] [address] | Dx); Left lumbar | | | | [address] | [phone] | radiculopathy; DDD | | | | [phone] | | (degenerative disc | | | [...] of the procedure you must provide a four horse hitch driver to take you home. For all [...] narcotic medications, NSAIDS and neuropathic pain [facility] which has not helped in the past.. [...] has no apparent deficits with short or residential memory. She has appropriate fund of knowledge [...] along with flexion/extension xray's perf ormed in [place] last week. I will request for these [...] [place] | | | | | | [id number] | | | | | | | | +--------+---------+ + + + | 04/03/ | Office | Cardiology | Zuleyka Castillo DO | | 2019 | Visit | | [address] | | | | | | [place] | | | | | | [id number] | | | | | | | [...] to the fluoroscopy suite for a | [facility] | | fluoroscopically-guided left L5-S1 transforaminal epidural [...] ST. | [address] | [place] | [phone] | | [facility] | | [address] | | | - IMAGING | | [...]
--- OUTSIDE RECORDS SUMMARY | ~2020-03-05 | XMS | Encounter Summary ---
Demographics + + + | Address | [address] | | | [place] [address] | + + + | Home Phone [...] Team Providers + +------+ + | Care Judicial Clerk Name | Role | Phone | [...] + + | 07/20/ | Telephone | [facility] | Maykel Hutchins MD | Procedure (Question) | | 2019 | | [facility] | [address] | | | | | ORTHOPEDIC SPINE | [place] | | | | | [address] [place] | [place] [address] | | | | | [place] | [phone] | | | | | [address] | | | | | | [phone] | | | +--------+ + + + [...] [place] | | | | | | [address] | | | | | | | | +--------+---------+ + + + | 04/03/ | Office | Cardiology | Zuleyka Castillo DO | | | 2019 | Visit | | [address] | | | | | | [place] | | | | | | [phone] | | | | | | | | +--------+---------+ + + + documented as of this encounter Visit Diagnoses Not on filedocumented in this encounter"
--- OUTSIDE RECORDS SUMMARY | ~2020-03-05 | XMS | Encounter Summary ---
Demographics + + + | Address | [address] | | | [place] [address] | + + + | Home Phone [...] Team Providers + +------+ + | Care Powerhouse Operator Name | Role | Phone | [...] Chronic low | [place], | [address] | | | | | back pain | Shay Mukherjee MD | [place], | | | | | Lumbar | [address] | [place] | | | | | radiculopath | [place] | [address] | | | | | y | [place] | Phone: | | | | | Procedures | [address] | [phone] | | | | | MRI Lumbar | Phone: | Fax: | | | | | Spine wo | [phone] | [phone] | | | | | Contrast | Fax: | | | | | | MRI | [phone] | | +--------+--------+ + + + + [...] | | | | [place] | [address] | | | | | [address] | | | | | | [phone] | | | +--------+ + + + [...] [place] | | | | | | [address] | | | | | | | | +--------+---------+ + + + | 04/03/ | Office | Cardiology | Zuleyka Castillo DO | | | 2019 | Visit | | [address] | | | | | | [place] | | | | | | [address] | | | | | | | [...] + | MISCELLANEOUS LAB | | | [phone] | + +---------+ + + | MISCELANIOUS LAB | | | [phone] | + +---------+ + + documented in this encounter Visit Diagnoses + + | Diagnosis | + + | Chronic low back pain - Primary Lumbago | + + | Lumbar radiculopathy Thoracic or lumbosacral neuritis or radiculitis, unspecified | + + documented in this encounter"
--- OUTSIDE RECORDS SUMMARY | ~2020-03-05 | XMS | Encounter Summary ---
Demographics + + + | Address | [address] | | | [place] [address] | + + + | Home Phone [...] Providers + +------+ + | Care Nuclear Radiologist Name | Role | Phone | + [...] + + | 02/14/ | Office | [facility] | Denys Sibley, | S/P insertion of | | 2020 | Visit | NE[facility]OSCI[facility] [place] | DO [address] | spinal cord | | | | DOLOROLOGY [address] | stimulator (Primary | | | | [address] | [address] | Dx); Spinal stenosis | | | | [place], [place] | | of lumbosacral | | | | [address] | | region; Lumbar | | | | [phone] | | region somatic | | | [...] were also pertinent to this visit. [facility] presents for chronic pain evaluation and management. [...] but not limited to physical therapy, career specialist, acupuncture, massage therapy, and nutritional healt h [...] Author Status Filed Medication Agreement Rupa Nye, Equities Analyst Active 11/14/2019 1:49 PM Pain Contract- Dr. Sibley 11/14/2019 PEG Pain screening tool (Pain, enjoyment, general activity) Total score: (Printable questionnaires in Kosovan ) Interpretation of Total Score: PEG scores are used to track changes over time. It should de crease after therapy has begun. Last 4 PEG Scores: No flowsheet data found. Opioid Risk Tool (ORT): Total Score Temp: 36.9 C (98.5 F) Pulse: 80 Resp: 20 BP: 104/56 SpO2: 100 % (From Chronic Pain tab; printable questionnaires in Kosovan) Interpretation of Total Score: 0 to 3 [...] Surgeon: Alfredo Casillas DO; Location: [facility]; Service: Pa in Management; Laterality: N/A; L5 FRACTURE SURGERY ANKLE HERNIA REPAIR HYSTERECTOMY HYSTERECTOMY LAMINECTOMY N/A 08/03/2019 Procedure: LAMINOTOMY THORACIC / LUMBAR W/ PLACEMENT SPINAL CORD STIMULATOR; Surgeon: Suly Hutchins MD; Location[facility] OTHER SURGICAL HISTORY [...] symptoms. Patient is not traveled to an [facility] area in the last 8 to 10 weeks. Current medication include [place] 10/325 1 p.o. every 4 hours as [...] on her curre nt medication program of [place] 10/325 1 p.o. every 4 hours as [...] reviewed, listed controlled substances are consistent with [facility] prescriptions and patient reported [...] = high risk) Daily Opioid Dose = [place] 10/325 1 p.o. every 4 hours as [...] to physical therapy, massage therapy, acupuncture, career specialist, along with niki mmended psychological counseling, either privately, or in group sessions offered by private care individuals, community services, or shinto organizations. Appropriate referrals were made at patient [...] and coordination of care with other health home care chaplain and monitoring labs results, other test results and [facility] including [facility] and/or [facility] prescription monitoring systems. This document has been created using [employer] Voice Recognition software and [employer]. The entry has been reviewed for content and accuracy, but there may still exist "sound alike" automatic drill operator word errors and/or unintended additions and [...] [place] | | | | | | [address] | | | | | | | | +--------+---------+ + + + | 04/03/ | Office | Cardiology | Zuleyka Castillo DO | | | 2019 | Visit | | [address] | | | | | | [place] | | | | | | [address] | | | | | | | [...]
--- OUTSIDE RECORDS SUMMARY | ~2020-03-05 | XMS | Encounter Summary ---
Demographics + + + | Address | [address] | | | [place] [address] | + + + | Home Phone [...] Providers + +------+ + | Care Collections Rep Name | Role | Phone | [...] | | (HCC) | [address] | [place], [place] | | | | | Procedures | [place] | [address] | | | | | [place] Nuclear | [address] | Phone: | | | | | Stress Test | Phone: | [phone] | | | | | (Exercise) | [phone] | Fax: | | | | | | Fax: | [phone] | | | | | | [phone] | | + +--------+ + + + [...] Cardiology | Diagnoses | Ana Cristina, | Jonathan, | | | | | Paroxysmal | Romy Conn, | DO Zuleyka | | | | | atrial | MD [address] | [address] | | | | | fibrillation | [address] | [address] | | | | | ([facility]) | [place], | [place] | | | | | Procedures | [place] | [address] Phone: | | | | | consult | [address] | [phone] | | | | | | Phone: | Fax: | | | | | | [phone] | [phone] | | | | | | Fax: | | | | | | | [phone] | | + +--------+ + + + + Encounter Details +--------+---------+ + + + | Date | Type | Department | Care Team | Description | +--------+---------+ + + + | 02/27/ | Office | [facility] | Zuleyka Castillo DO | Palpitations | | 2020 | Visit | CARDIOLOGY [place] | [address] | (Primary Dx); | | | | [address] | [place], [place] | Paroxysmal atrial | | | | [address] | [address] | fibrillation (HCC) | | | | [place] | | | | | | [address] | | | | | | [phone] | | | +--------+---------+ + + + [...] + documented in this encounter Progress Notes uZleyka Castillo DO - 02/28/2020 1:00 PM PDT [facility] Cardiology Cardiology Consult Note Reason for Consultation: [...] renal failure ([facility]) April 2013 Adverse effect of anesthesia hx hallucinations after anesthesia x 3 yrs ago. Anesthesia hallucinated after bladder repair Arthralgia Arthritis Asthma Asthma Back pain Cancer ([facility]) 2004 breast Cataract Cerebrovascular accident (CVA) ([facility]) no per pt Chronic back pain Chronic back pain Chronic constipation Concussion 07/2015 Preceeded by seizure Constipation COPD (chronic obstructive pulmonary disease) ([facility]) Degenerative disc disease Depression Depression Diabetes mellitus ([facility]) Diabetes mellitus, type 2 ([facility]) diet controlled Diabetes type 2, controlled ([facility]) diet controlled Diarrhea Disorder of thyroid [...] Procedure: KYPHOPLASTY; Surgeon: Alfredo Casillas DO; Location: [facility]; Service: Pa in Management; Laterality: N/A; L5 FRACTURE SURGERY ANKLE HERNIA REPAIR HYSTERECTOMY HYSTERECTOMY LAMINECTOMY N/A 08/03/2019 Procedure: LAMINOTOMY THORACIC / LUMBAR W/ PLACEMENT SPINAL CORD STIMULATOR; Surgeon: Suly Hutchins MD; Location: [facility]GICAL [...] failure Paternal Aunt Rachna hypertherm Neg Hx SOCIAL HISTORY Social History Socioeconomic History Marital status: Spouse name: Not on file Number of children: 3 Years of education: 14 Highest education level: Not on file Occupational History Occupation: [employer] Social Needs Financial resource strain: Not on [...] atrial fibrillation while she was in the [facility] with pneumonia. She has had a few brief episodes since that hospitalization. She has bee n started on anticoagulation with Xarelto for a BGPVJ5CSFR score of 2. She reports that this medication was too expensive for her. We have her Rx savings info for Eliquis 5m po bid. Chadd quiroz has had some issues with low blood pressure on metoprolol tartrate. We will switch over t o metoprolol succinate at a lower dose. If blood pressure continues to be an issue, may con grain manager switching over to digoxin. She had a [...] [place] | | | | | | [address] | | | | | | | | +--------+---------+ + + + | 04/03/ | Office | Cardiology | Zuleyka Castillo DO | | | 2019 | Visit | | [address] | | | | | | [place] | | | | | | [address] | | | | | | | [...] MD | | | | | | ([phone]) on 03/04/2020 | | | | | [...]
--- OUTSIDE RECORDS SUMMARY | ~2020-03-05 | XMS | Encounter Summary ---
Demographics + + + | Address | [address] | | | [place] [address] | + + + | Home Phone [...] Team Providers + +------+ + | Care Cash Checker Name | Role | Phone | + [...] [address] | [address] [place] [facility] [place] | | | | | [place], [place] | [address] | | | | | [address] | | | | | | [phone] | | | +--------+ + + + [...] [place] | | | | | | [id number] | | | | | | | | +--------+---------+ + + + | 04/03/ | Office | Cardiology | Zuleyka Castillo DO | | 2019 | Visit | | [address] | | | | | | [place] | | | | | | [address] | | | | | | | | +--------+---------+ + + + documented as of this encounter Visit Diagnoses Not on filedocumented in this encounter"
--- OUTSIDE RECORDS SUMMARY | ~2020-03-05 | XMS | Encounter Summary ---
Demographics + + + | Address | [address] | | | [place] [address] | + + + | Home Phone [...] Team Providers + +------+ + | Care Hairspring Vibrator Name | Role | Phone | + [...] + + | 08/31/ | Telephone | [facility] | Niki Pizarro, | Other (patient | | 2019 | | NEUROSURGERY [address] | RN | trying to reach | | | | [address] | | [facility]'s office) | | | | [place] | | | | | | [address] | | | | | | [phone] | | | +--------+ + + + [...] [place] | | | | | | [address] | | | | | | | | +--------+---------+ + + + | 04/03/ | Office | Cardiology | Zuleyka Castillo DO | | | 2019 | Visit | | [address] | | | | | | [place] | | | | | | [address] | | | | | | | | +--------+---------+ + + + documented as of this encounter Visit Diagnoses Not on filedocumented in this encounter"
--- OUTSIDE RECORDS SUMMARY | ~2020-03-05 | XMS | Encounter Summary ---
Demographics + + + | Address | [address] | | | [place] [address] | + + + | Home Phone [...] Team Providers + +------+ + | Care Ironer Hand Name | Role | Phone | [...] | | | | | bilateral | [place], [place] | | | | | | low back | [address] | | | | | | pain with | Phone: | | | | | | right-sided | [phone] | | | | | | sciatica | Fax: | | | | | | | [phone] | | + + + + + [...] + + | 08/03/ | Hospital | [facility] | Maykel Hutchins MD | BACK PAIN, LUMBAR | | 2019 - | Encounter | [facility] | [address] | (Primary Dx); | | | | CARE FLOOR [address] | [place], | Chronic bilateral | | 08/04/ | | [address] | [place] [address] | low back pain with | | 2019 | | [place] | [phone] | right-sided sciatica | | | | [address] | | | | | | [phone] | | | +--------+ + + + [...] note might be different from logan phillips. [facility]. 08/04/2019 DISCHARGE SUMMARY PATIENT NAME: [...] by elevating your feet Date Last Reviewed: 2889-5643 [employer]. [address] [place] [address], [place] [address]. All righ ts reserved. This information is not intended as a substitute for professional medical care. Always follow your healthcare professional's instructions. Acetaminophen; Hydrocodone tablets or capsules Brand Names: Anexsia, Lorcet, Lorcet HD, Lorcet Plus, Lortab, [place], Verdrocet, Vicodin, Vi codin ES, Vicodin HP, [...] information carefully each time. Talk to your brim and crown presser regarding the use of this medicine in children. Special care may be needed. What side effects may I notice from receiving this medicine? Side effects that you should report to your doctor or health med care manager as soon as p ossible: [...] attention (report to your doctor or health med care manager if they continue or are [...] an official disposal site. Contact the [facility] at [phone] or your [facility] government to find a site. If [...] this medicine? Tell your doctor or health med care manager if your pain does not [...] pharmacist, or health care provider. 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 Past Medical History: Diagnosis Date Acid [...] COPD (chronic obstructive pulmonary disease) ([facility]) Degenerative disc disease Depression Depression Diabetes mellitus ([facility]) Diabetes mellitus, type 2 ([facility]) diet controlled Diabetes type 2, controlled ([facility]) diet controlled Diarrhea Disorder of [...] 100 mg Oral BID PRN Julien Guzman LIFT SUPERVISOR HYDROcodone-acetaminophen (NORCO) 10-325 mg per tablet 1 tablet 1 tablet Oral Q4H PRN Julien Guzman LIFT SUPERVISOR 1 tablet at 08/04/19 0502 HYDROmorphone (DILAUDID) injection 0.2-0.4 mg 0.2-0.4 mg Intravenous Q1H PRN Maykel ortiz MD 0.2 mg at 08/03/19 1700 methocarbamol (ROBAXIN) tablet 1,500 mg 1,500 mg Oral Q6H PRN RENATO DavisP ondansetron (ZOFRAN ODT) disintegrating tablet 4 mg 4 mg Oral Q6H PRN Julien Guzman LIFT SUPERVISOR rOPINIRole (REQUIP) tablet 4 mg 4 mg Oral 4x Daily PRN Maykel Hutchins MD senna (SENOKOT) tablet 8.6 mg 8.6 mg Oral BID PRN Julien Guzman LIFT SUPERVISOR sodium chloride 0.45% (1/2 NS) infusion Intravenous Continuous Maykel Hutchins MD 100 mL /hr at 08/03/19 1342 950 mL at 08/03/19 1342 sodium chloride 0.45% (1/2 NS) infusion Intravenous Continuous Julien Guzman LIFT SUPERVISOR 100 m L/hr at 08/04/19 0057 [...] [address] | | | | | | [place] | | | | | | [address] | | | | | | | | +--------+---------+ + + + | 04/03/ | Office | Cardiology | Zuleyka Castillo DO | | | 2019 | Visit | | [address] | | | | | | [place] | | | | | | [address] | | | | | | | [...] | | | Needs | | | HVAC MANAGER | | | reques | | [...] | | POC | performed at [facility];[address] | | LABORATORY | | | | [address];[place] | | | | | | [address] | | | | + + + + + + + + | Specimen | + + | | + + + + + + + | Performing | Address | City/State/Zipcode | Phone Number | | Organization | | | | + + + + + | [facility] | [address] | [place] [address] | [phone] | + + + + + POC [...] | | POC | performed at [facility];[address] | | LABORATORY | | | | [address];[place], [place] | | | | | | [address] | | | | + + + + + + + + | Specimen | + + | | + + + + + + + | Performing | Address | City/State/Zipcode | Phone Number | | Organization | | | | + + + + + | [facility] | [address] | [place] [address] | [phone] | + + + + + POC [...] | | POC | performed at [facility];[address] | | LABORATORY | | | | [address];[place], [place] | | | | | | [address] | | | | + + + + + + + + | Specimen | + + | | + + + + + + + | Performing | Address | City/State/Zipcode | Phone Number | | Organization | | | | + + + + + | [facility] | [address] | [place] [address] | [phone] | + + + + + POC [...] | | POC | performed at [facility];[address] | | LABORATORY | | | | [address];[place] | | | | | | [address] | | | | + + + + + + + + | Specimen | + + | | + + + + + + + | Performing | Address | City/State/Zipcode | Phone Number | | Organization | | | | + + + + + | [facility] | [address] | [place] [address] | [phone] | + + + + + LINSEY [...] | | POC | performed at [facility];[address] | | LABORATORY | | | | [address];[place] | | | | | | [address] | | | | + + + + + + + + | Specimen | + + | | + + + + + + + | Performing | Address | City/State/Zipcode | Phone Number | | Organization | | | | + + + + + | [facility] | [address] | [place] [address] | [phone] | + + + + + POC [...] | | POC | performed at [facility];[address] | | LABORATORY | | | | [address];[place], [place] | | | | | | [address] | | | | + + + + + + + + | Specimen | + + | | + + + + + + + | Performing | Address | City/State/Zipcode | Phone Number | | Organization | | | | + + + + + | [facility] | [address] | [place] [address] | [phone] | + + + + + Type [...] + + + | BB BAND | [id number] | | [facility] | | | | | | LABORATORY | | + + + + + + | BB BAND | Testing performed at | | [facility] | | | | [facility];[address] | | LABORATORY | | | | [address];[place] [address] | | | | + + + + + + + + | Specimen | + + | Blood | + + + + + + + | Performing | Address | City/State/Zipcode | Phone Number | | Organization | | | | + + + + + | [facility] | [address] | [place] [address] | [phone] | + + + + + POC [...] | | POC | performed at [facility];[address] | | LABORATORY | | | | [address];[place] | | | | | | [address] | | | | + + + + + + + + | Specimen | + + | | + + + + + + + | Performing | Address | City/State/Zipcode | Phone Number | | Organization | | | | + + + + + | [facility] | [address] | [place] [address] | [phone] | + + + + + documented [...] | Pain, Starting 08/03/19 at | | PM PDT | | [...] | | | | | | longer, nzomia-hib-txdno use of | | | | | [...] | | | | | | | unobsn-hqg-svjee use of at least | | | [...] | PRN, Pain, Starting 08/03/19 | | AM PDT | | | [...]
--- OUTSIDE RECORDS SUMMARY | ~2020-03-05 | XMS | Encounter Summary ---
Demographics + + + | Address | [address] | | | [place] [address] | + + + | Home Phone [...] Team Providers + +------+ + | Care Horticultural Therapist Name | Role | Phone | [...] | | | | | [address] | | | | | | [place], [place] | | | | | | [address] | | | | | | [phone] | | | +--------+ + + + [...] [place] | | | | | | [address] | | | | | | | | +--------+---------+ + + + | 04/03/ | Office | Cardiology | Zuleyka Castillo DO | | | 2019 | Visit | | [address] | | | | | | [place] | | | | | | [address] | | | | | | | | +--------+---------+ + + + documented as of this encounter Visit Diagnoses Not on filedocumented in this encounter
--- OUTSIDE RECORDS SUMMARY | ~2020-03-05 | XMS | Encounter Summary ---
Demographics + + + | Address | [address] | | | [place] [address] | + + + | Home Phone [...] Team Providers + +------+ + | Care Dumb Waiter Operator Name | Role | Phone | [...] + + | 04/17/ | Telephone | [facility] | Nick Martinez, | Other (Back Brace) | | 2017 | | PHYSIATRY [address] | PA-C [address] | | | | | [address] | [address] [place] | | | | | [place], [place] | [place] [address] | | | | | [address] | [phone] | | | | | [phone] | | | +--------+ + + + [...] [place] | | | | | | [address] | | | | | | | | +--------+---------+ + + + | 04/03/ | Office | Cardiology | Zuleyka Castillo DO | | | 2020 | Visit | | [address] | | | | | | [place] | | | | | | [id number] | | | | | | | | +--------+---------+ + + + documented as of this encounter Visit Diagnoses Not on filedocumented in this encounter"
--- OUTSIDE RECORDS SUMMARY | ~2020-03-05 | XMS | Encounter Summary ---
Demographics + + + | Address | [address] | | | [place] [address] | + + + | Home Phone [...] Providers + +------+ + | Care Car Mechanic Name | Role | Phone | + +------+ + PCP | Unavailable | + +------+ + Encounter Details +--------+ + + + + | Date | Type | Department | Care Team | Description | +--------+ + + + + | 09/22/ | Hospital | [facility] | Shay Dietz | | | 2010 | Encounter | MED CTR XRAY [address] | T, [address] | | | | | [place] | [address] [place], [place] | | | | | [place] [address] | [address] | | | | | [phone] | | | +--------+ + + + [...] [place] | | | | | | [address] | | | | | | | | +--------+---------+ + + + | 04/03/ | Office | Cardiology | Zuleyka Castillo DO | | | 2019 | Visit | | [address] | | | | | | [place] | | | | | | [address] | | | | | | | [...] Performed At | + + + | [facility] Diagnostic Imaging Department | [facility] | | [address] [facility] | [facility] | | LUMBAR FACET INJECTIONS, | DIAG [...] Transcribed Date/Time: | | | 09/22/2011 18:07 Advanced Solutions Architect: <Electronically Signed | | | by Shay Dietz MD> 09/27/11 1035 | | + + + + + | Procedure Note | + + | Junior, Rad Conversion - 12/07/2013 4:17 PM [facility] | | Diagnostic Imaging Department [address] [place] [address] | | LUMBAR FACET INJECTIONS, 09/22/2011 CLINICAL [...] 17:09 | |Transcribed Date/Time: 09/22/2011 18:07 | |Advanced Solutions Architect: | |<Electronically Signed by Shay Dietz MD> [...]
--- OUTSIDE RECORDS SUMMARY | ~2020-03-05 | XMS | Encounter Summary ---
Demographics + + + | Address | [address] | | | [place] [address] | + + + | Home Phone [...] + +------+ + | Care Mental Health Aides Teacher Name | Role | Phone | + +------+ + PCP | Unavailable | + +------+ + Encounter Details +--------+ + + + + | Date | Type | Department | Care Team | Description | +--------+ + + + + | /10/ | Orders Only | [facility] [place] | Shay Dietz | Back pain (Primary | | 2013 | | PHYSIATRY [address] | T, [address] | Dx) | | | | [address] | [place] | | | | | [place] | [address] | | | | | [address] | | | | | | [phone] | | | +--------+ + + + [...] [place] | | | | | | [id number] | | | | | | | | +--------+---------+ + + + | 04/03/ | Office | Cardiology | Zuleyka Castillo DO | | 2019 | Visit | | [address] | | | | | | [place] | | | | | | [id number] | | | | | | | | +--------+---------+ + + + documented as of this encounter Visit Diagnoses + + | Diagnosis | + + | Back pain - Primary Backache, unspecified | + + documented in this encounter"
--- OUTSIDE RECORDS SUMMARY | ~2020-03-05 | XMS | Encounter Summary ---
Demographics + + + | Address | [address] | | | [place] [address] | + + + | Home Phone [...] Team Providers + +------+ + | Care Safety Person Name | Role | Phone | + +------+ + | Wendi Aiken | PCP | | + +------+ + Encounter Details +--------+ + + + + | Date | Type | Department | Care Team | Description | +--------+ + + + + | 04/07/ | Imaging | [facility] | Provider, | | | 2018 | Exam | MED CTR EXTERNAL | MD [address] | | | | | IMAGING [address] | [address] | | | | | [facility] | [place] [address] | | | | | [place] [address] | | | | | | [phone] | | | +--------+ + + + [...] [place] | | | | | | [address] | | | | | | | | +--------+---------+ + + + | 04/03/ | Office | Cardiology | Zuleyka Castillo DO | | | 2019 | Visit | | [address] | | | | | | [place] | | | | | | [address] | | | | | | | [...]
--- OUTSIDE RECORDS SUMMARY | ~2020-03-05 | XMS | Encounter Summary ---
Demographics + + + | Address | [address] | | | [place] [address] | + + + | Home Phone [...] Team Providers + +------+ + | Care Pattern Hand Name | Role | Phone | [...] | MRI Lumbar | [place], | [address] | | | | | Spine wo | [place] [address] | Phone: | | | | | Contrast | Phone: | [phone] | | | | | | [phone] | Fax: | | | | | | Fax: | [phone] | | | | | | [phone] | | +--------+--------+ + + + + Reason for Visit + + + | Reason | Comments | + + + | Follow-up | Discuss Injections | + + + Encounter Details +--------+---------+ + + + | Date | Type | Department | Care Team | Description | +--------+---------+ + + + | 04/03/ | Office | [facility] [place] | Nick Martinez, | Lumbar radiculopathy | | 2018 | Visit | PHYSIATRY [address] | PA-C [address] | (Primary Dx); BACK | | | | [address] | [address] [place] | PAIN, LUMBAR; | | | | [place], [place] | [place] [address] | SACROILIITIS; DDD | | | | [address] | [phone] | (degenerative disc | | | | [phone] | | disease), lumbar; | | | [...] of the procedure you must provide a wagon driver to take you home. For all [...] press against a nerve. Date Last Reviewed: 08/03/201519996177-9341 [employer]. [address] [place] [address], [place] [address]. All righ ts reserved. This information is [...] and working more hours due to the [employer] up. Her pain ba ck is [...] has no apparent deficits with short or terminologist memory. She has appropriate fund of knowledge [...] [place] | | | | | | [address] | | | | | | | | +--------+---------+ + + + | 04/03/ | Office | Cardiology | Zuleyka Castillo DO | | | 2019 | Visit | | [address] | | | | | | [place] | | | | | | [address] | | | | | | | [...]
--- OUTSIDE RECORDS SUMMARY | ~2020-03-05 | XMS | Encounter Summary ---
Demographics + + + | Address | [address] | | | [place] [address] | + + + | Home Phone [...] Providers + +------+ + | Care Applications Consultant Name | Role | Phone | + +------+ + | Oxana Nye | PCP | | + +------+ + Encounter Details +--------+------+ + + + | Date | Type | Department | Care Team | Description | +--------+------+ + + + | 03/09/ | Lab | Laboratory at [facility] | | Chest pain, | | 2015 | | [address] | | unspecified type | | | | [place], [place] | | | | | | [address] | | | | | | [phone] | | | +--------+------+ + + + [...] NON-HDL | 54 | <=130 mg/dL | [facility] | | | CHOLESTEROL | [...] | + + + + + | [facility] | [address] | [place], [place] | | | | [address] | [address] | | + + + + + documented in this encounter Visit Diagnoses + + | Diagnosis | + + | Chest pain, unspecified type | + + documented in this encounter"
--- OUTSIDE RECORDS SUMMARY | ~2020-03-05 | XMS | Encounter Summary ---
Demographics + + + | Address | [address] | | | [place] [address] | + + + | Home Phone [...] Team Providers + +------+ + | Care Stull Hewer Name | Role | Phone | + [...] | | | | | region | [address] | | | | | | | Phone: | | | | | | | [phone] | | | | | | | Fax: | | | | | | | [phone] | | +--------+ + + + + + Reason for Visit + + + | Reason | Comments | + + + | Follow-up | MRI f/u | + + + Encounter Details +--------+---------+ + + + | Date | Type | Department | Care Team | Description | +--------+---------+ + + + | 09/10/ | Office | [facility] | Darrin Hoyos | Scoliosis of lumbar | | 2013 | Visit | NEUROSURGERY [address] | [address] | spine (Primary Dx); | | | | [address] | [address] | Facet arthritis of | | | | [place], [place] | [place] [address] | lumbar region | | | | [address] | [phone] | | | | | [phone] | | | +--------+---------+ + + + [...] t from the original. PEE Vang [address] [facility], [address] [place], [place] [id number] FAX: NEUROSURGERY HISTORY AND PHYSICAL EXAMINATION CHIEF [...] a also s een a surgeon in [facility] he stated she did not need to have surgery according to her repo rt. She also reports she had a recent MRI in the [facility] which I do not have to [...] no apparent deficits with short or senior living memory. CRANIAL NERVES: II: Acuity is intact. [...] Intrinsics 5 4 Ulnar Intrinsics 5 4 Production Machine Shop Supervisor Strength 5 4 Hip Flexion 5 4 [...] [place] | | | | | | [id number] | | | | | | | | +--------+---------+ + + + | 04/03/ | Office | Cardiology | Castillo, Zuleyka, DO | | | 2020 | Visit | | [address] | | | | | | [place] | | | | | | [address] | | | | | | | [...]
--- OUTSIDE RECORDS SUMMARY | ~2020-03-05 | XMS | Encounter Summary ---
Demographics + + + | Address | [address] | | | [place] [address] | + + + | Home Phone [...] Team Providers + +------+ + | Care Electrotype Servicer Name | Role | Phone | [...] + + | 04/06/ | Telephone | [facility] | Nick Martinez, | Results, Imaging | | 2018 | | PHYSIATRY [address] | PA-C [address] | (MRI/Cancelled | | | | [address] | [address] [place] | Injection) | | | | [place] | [place] [address] | | | | | [address] | [phone] | | | | | [phone] | | | +--------+ + + + [...] [place] | | | | | | [address] | | | | | | | | +--------+---------+ + + + | 04/03/ | Office | Cardiology | Zuleyka Castillo DO | | | 2020 | Visit | | [address] | | | | | | [place] | | | | | | [address] | | | | | | | | +--------+---------+ + + + documented as of this encounter Visit Diagnoses Not on filedocumented in this encounter"
--- OUTSIDE RECORDS SUMMARY | ~2020-03-05 | XMS | Encounter Summary ---
Demographics + + + | Address | [address] | | | [place] [address] | + + + | Home Phone [...] Team Providers + +------+ + | Care Resident Services Supervisor Name | Role | Phone | [...] | | | [address]OLOGY [address] [place], [place] | | | | | [address] | [address] | | | | | [place], [place] | | | | | | [address] | | | | | | [phone] | | | +--------+ + + + [...] [place] | | | | | | [address] | | | | | | | | +--------+---------+ + + + | 04/03/ | Office | Cardiology | Zuleyka Castillo DO | | | 2020 | Visit | | [address] | | | | | | [place] | | | | | | [address] | | | | | | | | +--------+---------+ + + + documented as of this encounter Visit Diagnoses Not on filedocumented in this encounter"
--- OUTSIDE RECORDS SUMMARY | ~2020-03-05 | XMS | Encounter Summary ---
Demographics + + + | Address | [address] | | | [place] [address] | + + + | Home Phone [...] Providers + +------+ + | Care Warehouse Supervisor 3Rd Shift Name | Role | Phone | [...] Chronic low | [place], | [address] | | | | | back pain | Shay Mukherjee MD | [place], | | | | | Lumbar | [address] | [place] | | | | | radiculopath | [place] | [address] | | | | | y | [place], [place] | Phone: | | | | | Procedures | [address] | [phone] | | | | | MRI Lumbar | Phone: | Fax: | | | | | Spine wo | [phone] | [phone] | | | | | Contrast | Fax: | | | | | | MRI | [phone] | | +--------+--------+ + + + + [...] Chronic low | [place], | [address] | | | | | back pain | Shay Mukherjee MD | [place], | | | | | Lumbar | [address] | [place] | | | | | radiculopath | [place] | [address] | | | | | y | [place], [place] | Phone: | | | | | Procedures | [address] | [phone] | | | | | MRI Lumbar | Phone: | Fax: | | | | | Spine wo | [phone] | [phone] | | | | | Contrast | Fax: | | | | | | MRI | [phone] | | +--------+--------+ + + + + Encounter Details +--------+ + + + + | Date | Type | Department | Care Team | Description | +--------+ + + + + | 04/12/ | Hospital | [facility] | Shay Dietz | Chronic low back | | 2013 | Encounter | MED CTR MRI [address] | T, [address] | pain; Lumbar | | | | [address] [place], | [place], [place] | radiculopathy | | | | [place] [address] | [address] | | | | | [phone] | | | +--------+ + + + [...] [place] | | | | | | [address] | | | | | | | | +--------+---------+ + + + | 04/03/ | Office | Cardiology | Zuleyka Castillo DO | | | 2019 | Visit | | [address] | | | | | | [place] | | | | | | [address] | | | | | | | [...] + | MISCELLANEOUS LAB | | | [phone] | + +---------+ + + | MISCELANIOUS LAB | | | [phone] | + +---------+ + + documented in this encounter Visit Diagnoses + + | Diagnosis | + + | Chronic low back pain Lumbago | + + | Lumbar radiculopathy Thoracic or lumbosacral neuritis or radiculitis, unspecified | + + documented in this encounter"
--- OUTSIDE RECORDS SUMMARY | ~2020-03-05 | XMS | Encounter Summary ---
Demographics + + + | Address | [address] | | | [place] [address] | + + + | Home Phone [...] Providers + +------+ + | Care Air Quality Engineer Name | Role | Phone | [...] [address] | | | | | [facility] [address] | [address] [facility] [place], | | | 08/07/ | | [address]th [place], [place] | [place] [address] | | | 2004 | | [address] | [phone] | | | | | [phone] | | | +--------+ + + + [...] 05/18/ | Office | Pain Medicine | Denys Sibley, | | | 2019 | Visit | | DO [address] | | | | | | [place] | | | | | | [address] | | | | | | | | +--------+---------+ + + + | 04/03/ | Office | Cardiology | Zuleyka Castillo DO | | | 2019 | Visit | | [address] | | | | | | [place] | | | | | | [address] | | | | | | | | +--------+---------+ + + + documented as of this encounter Visit Diagnoses Not on filedocumented in this encounter"
--- OUTSIDE RECORDS SUMMARY | ~2020-03-05 | XMS | Encounter Summary ---
Demographics + + + | Address | [address] | | | [place] [address] | + + + | Home Phone [...] Team Providers + +------+ + | Care Pet Nutrition Specialist Name | Role | Phone | [...] 2019 | | [facility] | [address] | [facility] | | | | ORTHOPEDIC SPINE | [place], | Healthcare Orders) | | | | [address] [place] | [place] [address] | | | | | [place] | [phone] | | | | | [address] | | | | | | [phone] | | | +--------+ + + + [...] [place] | | | | | | [address] | | | | | | | | +--------+---------+ + + + | 04/03/ | Office | Cardiology | Zuleyka Castillo DO | | | 2019 | Visit | | [address] | | | | | | [place] | | | | | | [address] | | | | | | | | +--------+---------+ + + + documented as of this encounter Visit Diagnoses Not on filedocumented in this encounter"
--- OUTSIDE RECORDS SUMMARY | ~2020-03-05 | XMS | Encounter Summary ---
Demographics + + + | Address | [address] | | | [place] [address] | + + + | Home Phone [...] Team Providers + +------+ + | Care Lottery Clerk Name | Role | Phone | [...] | | | stenosis | B | [address] | | | | | | [place], [place] | Phone: | | | | | | [address] | [phone] | | | | | | Phone: | Fax: | | | | | | [phone] | [phone] | | | | | | Fax: | | | | | | | [phone] | | + +--------+ + + + + Encounter Details +--------+---------+ + + + | Date | Type | Department | Care Team | Description | +--------+---------+ + + + | 06/18/ | Office | [facility] | Denys Sibley, | SACROILIITIS | | 2018 | Visit | [facility] | DO [address] | (Primary Dx); | | | | DOLOROLOGY [address] [place] | Spondylosis of | | | | [address] [address] | [address] | lumbar region | | | | [place], [place] | | without myelopathy | | | | [address] | | or radiculopathy; | | | | [phone] | | BACK PAIN, LUMBAR; | | [...] | | | | | | pain; longterm | | | | | | current [...] the other nostri l. Talk to your apartment leasing specialist regarding the use of this medicine in children. While this drug m ay be prescribed for children as young as newborns for selected conditions, precautions do a pply. What side effects may I notice from receiving this medicine? Side effects that you should report to your doctor or health child care assistant as soon as p ossible: allergic reactions like skin rash, itching or hives, swelling of the face, lips, or tong ue breathing problems fast, irregular heartbeat high blood pressure pain that was controlled by narcotic pain medicine seizures Side effects that usually do not require medical attention (report to your doctor or health child care assistant if they continue or are bothersome): anxious [...] phone number of your doctor or health child care assistant and local hospital ready. You may need to have additional doses of this medicine. Each nasal spray contains a single dose. Some emergencies may require additional doses. After use, bring the treated person to the nearest hospital or call 911. Make sure the [facility] health child care assistant knows that the person has received an [...] Asthma Cancer ([facility]) 2004 breast Cerebrovascular accident (CVA) ([facility] [...] 04/17/2014 Seizure ([facility]) one due to meds, two due to [...] physical therapy, mass age therapy, acupuncture, healthcare manager, along with recommended psychological counseling , either privately, or in group sessions offered by private care individuals, community serv ices, or cheondoism organizations. Appropriate referrals were made at patient and/or provider request Narcan was prescribed, when appropriate, and patient instructed in its use for emergency on ly. Patient was given instructions on proper storage and disposal of medications including but not limited to current government regulations regarding this and or current official gov [facility] approved disposal sites. Continue current medication regime with these changes and/ or additions :refill her fenta nyl patch 25 by grams applied to the anterior chest wall q72 hours, and Norco7.5/325 one po q6 hours prn pain Patient understands and is in full agreement with the above plan, Will return to office in 4 weeks, [facility] was consulted and appears appropriate, Urine [...] dysfunction are noted in men and women. [facility] men will suffer erectile dysfunction with [...] the passage of time. long term care administrator use is also associated with depressions, [...] [place] | | | | | | [address] | | | | | | | | +--------+---------+ + + + | 04/03/ | Office | Cardiology | Zuleyka Castillo DO | | | 2019 | Visit | | [address] | | | | | | [place] | | | | | | [id number] | | | | | | | | +--------+---------+ + + + + +------+--------+ + + | Name | Type | Priori | Associated Diagnoses | Order Schedule | | | | ty | | | + +------+--------+ + + | Drugs of Abuse, | Lab | Routin | longterm current | Expected: | | Panel, Pain [...] | + + | long term care administrator current use of opiate analgesic Encounter for long-term (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 of | | other medications | + + documented in this encounter
--- OUTSIDE RECORDS SUMMARY | ~2020-03-05 | XMS | Encounter Summary ---
Demographics + + + | Address | [address] | | | [place] [address] | + + + | Home Phone [...] Providers + +------+ + | Care Barrel Roller Name | Role | Phone | + [...] | | 2015 | Encounter | at [facility] [address] | [address] | | | | | Ave Mailcode: CH7C | [facility] [address], | | | | | [facility] | [place] [address] | | | | | and Healing, | [phone] | | | | | [facility] | | | | | | Floor [place], [place] | | | | | | [address] | | | | | | [phone] | | | +--------+ + + + [...]
--- OUTSIDE RECORDS SUMMARY | ~2020-03-05 | XMS | Encounter Summary ---
Demographics + + + | Address | [address] | | | [place] [address] | + + + | Home Phone [...] Providers + +------+ + | Care Care Navigator Name | Role | Phone | + +------+ + | Concepción Gallardo NP | PCP | | + +------+ + Encounter Details +--------+ + + + + | Date | Type | Department | Care Team | Description | +--------+ + + + + | 11/26/ | Hospital | [facility] | Conversion | Peripheral vertigo, | | 2016 | Encounter | [facility] MRI [address] | Transaction, | unspecified | | | | [address] | Provider Unknown | laterality; | | | | [place], [place] | | Post-concussion | | | | [address] | (Fax) | vertigo | | | | [phone] | | | +--------+ + + + [...] Note by Rosy Bautista RN at 11/26/15 9984 Author: Rosy Bautista RN Service: (none) Author Type: Registered Nurse Filed: 11/26/15 2053 Date of Service: 11/26/15 1600 Status: Signed Dock Grader: Rosy Bautista RN (Registered Nurse) Responded to [...] the er befor e returning home to [place]. Pt reluctant but willing to go to [...] [place] | | | | | | [address] | | | | | | | | +--------+---------+ + + + | 04/03/ | Office | Cardiology | Zuleyka Castillo DO | | | 2019 | Visit | | [address] | | | | | | [place] | | | | | | [address] | | | | | | | [...] | | Fingerstick | performed at [facility];[address] | | LAB | | | | Rosenda Donnelly;[place] | | | | | | [address] | | | | + + + [...]
--- OUTSIDE RECORDS SUMMARY | ~2020-03-05 | XMS | Encounter Summary ---
Demographics + + + | Address | [address] | | | [place] [address] | + + + | Home Phone [...] Team Providers + +------+ + | Care Automation Engineer Name | Role | Phone [...] + + | 08/06/ | Telephone | [facility] | Maykel Hutchins MD | Medication Question | | 2019 | | [facility] | [address] | | | | | ORTHOPEDIC SPINE | [place] | | | | | [address] [place] | [place] [address] | | | | | [place] | [phone] | | | | | [address] | | | | | | [phone] | | | +--------+ + + + [...] [place] | | | | | | [address] | | | | | | | | +--------+---------+ + + + | 04/03/ | Office | Cardiology | Zuleyka Castillo DO | | | 2019 | Visit | | [address] | | | | | | [place] | | | | | | [id number] | | | | | | | | +--------+---------+ + + + documented as of this encounter Visit Diagnoses Not on filedocumented in this encounter"
--- OUTSIDE RECORDS SUMMARY | ~2020-03-05 | XMS | Encounter Summary ---
Demographics + + + | Address | [address] | | | [place] [address] | + + + | Home Phone [...] Providers + +------+ + | Care Campaign Director Name | Role | Phone | [...] + | 05/09/ | Telephone | [facility] | Nick Martinez, | Results, Imaging | | 2018 | | PHYSIATRY [address] | PA-C [address] | | | | | [address] | [address] [place] | | | | | [place], [place] | [place] [address] | | | | | [address] | [phone] | | | | | [phone] | | | +--------+ + + + [...] [place] | | | | | | [address] | | | | | | | | +--------+---------+ + + + | 04/03/ | Office | Cardiology | Zuleyka Castillo DO | | | 2020 | Visit | | [address] | | | | | | [place] | | | | | | [address] | | | | | | | | +--------+---------+ + + + documented as of this encounter Visit Diagnoses Not on filedocumented in this encounter"
--- OUTSIDE RECORDS SUMMARY | ~2020-03-05 | XMS | Encounter Summary ---
Demographics + + + | Address | [address] | | | [place] [address] | + + + | Home Phone [...] Providers + +------+ + | Care Traffic Reporter Name | Role | Phone | + [...] | Lumbar | [place], | [address] | | | | | spondylosis | Shay Mukherjee MD | [place], | | | | | Right hip | [address] | [place] | | | | | pain | [place] | [address] | | | | | Procedures | [place], [place] | Phone: | | | | | [place] | [address] | [phone] | | | | | DX/THER AGNT | Phone: | Fax: | | | | | [place] | [phone] | [phone] | | | | | FACET JOINT, | Fax: | | | | | | LUMBAR/SAC, | [phone] | | | | | | 1ST LEVEL | | | | | | | [place] | | | | | | | TRIAMCINOLON | | | | | | | E ACET INJ | | | | | | | NOS, 10 MG | | | | | | | [place] | | | | | | | [...] + + | 02/08/ | Hospital | [facility] | Shahnazdanatalycz, | Trochanteric | | 2016 | Encounter | MED CTR XRAY [address] | [address] | bursitis of right | | | | [place] | [facility] [address] | hip (Primary Dx); | | | | [place] [address] | [place] [address] | Chronic bilateral | | | | [phone] | [phone] | low back pain with | | | | | | right-sided | | | | | Graves Registration Specialist, Ws | sciatica; Facet | | | [...] | | | | | | [facility] [place] | | | | | | [address] | | | | | | | | +--------+---------+ + + + | 04/03/ | Office | Cardiology | Zuleyka Castillo DO | | | 2020 | Visit | | [address] | | | | | | [place] | | | | | | [address] | | | | | | | [...] Trochanteric Bursitis ICD-10 Code M47.816 and ICD-10 [place] | [facility] | | Harshal Rubio presents [...] [address] | [place] | [phone] | | [facility] | | [address] | | | - IMAGING | | [...]
--- OUTSIDE RECORDS SUMMARY | ~2020-03-05 | XMS | Encounter Summary ---
Demographics + + + | Address | [address] | | | [place] [address] | + + + | Home Phone [...] Team Providers + +------+ + | Care Construction Contractor Name | Role | Phone | + +------+ + | Romy De La Paz MD | PCP | | + +------+ + Encounter Details +--------+---------+ + + + | Date | Type | Department | Care Team | Description | +--------+---------+ + + + | 09/17/ | Office | [facility] | Denys Sibley G, | S/P insertion of | | 2018 | Visit | [facility] | DO [address] | spinal cord | | | | [address] | [address] [place], [place] | stimulator (Primary | | | | [address] [address] | [address] | Dx); Spinal stenosis | | | | [place], [place] | | of lumbosacral | | | | [address] | | region; Lumbar | | | | [phone] | | region somatic | | | [...] anterior chest wall ever y 72 hours. [place] 10/325 1 p.o. every 6 hours as [...] including but not limited to physical therapy, palliative care nurse practitioner, acupuncture, massage therapy, and nutritional healt h [...] general activity) Total score: (Printable questionnaires in Belgian ) Interpretation of Total Score: PEG scores are used to track changes over time. It should de crease after therapy has begun. Last 4 PEG Scores: No flowsheet data found. Opioid Risk Tool (ORT): Total Score Pulse: 78 Resp: 16 BP: 102/52 SpO2: 98 % (From Chronic Pain tab; printable questionnaires in Belgian) Interpretation of Total Score: 0 to 3 [...] disease Acute renal failure ([facility]) April 2013 Adverse effect of anesthesia hx hallucinations after anesthesia x 3 yrs ago. Anesthesia hallucinated after bladder repair Arthralgia Arthritis Asthma Asthma Back pain Cancer ([facility]) 2004 breast Cataract Cerebrovascular accident (CVA) ([facility]) no per pt Chronic back pain Chronic back pain Chronic constipation Concussion 07/2015 Preceeded by seizure Constipation COPD (chronic obstructive pulmonary disease) ([facility]) Degenerative disc disease Depression Depression Diabetes mellitus ([facility]) Diabetes mellitus, type 2 ([facility]) diet controlled Diabetes type 2, controlled ([facility]) diet controlled Diarrhea Disorder of thyroid [...] lumbar spine 04/17/2014 Seizure ([facility]) one due to meds, two due [...] Asthma Back pain Cancer ([facility]) 2004 breast Cataract Cerebrovascular accident (CVA) ([facility]) no per pt Chronic back pain Chronic back pain Chronic constipation Concussion 07/2015 Preceeded by seizure Constipation COPD (chronic obstructive pulmonary disease) ([facility]) Degenerative disc disease Depression Depression Diabetes mellitus (HCC) Diabetes mellitus, type 2 (HCC) diet controlled Diabetes type 2, controlled ([facility]) diet controlled Diarrhea Disorder of thyroid [...] Procedure: KYPHOPLASTY; Surgeon: Alfredo Casillas DO; Location: [facility] MAIN OR; Service: Pa in Management; Laterality: N/A; L5 FRACTURE SURGERY ANKLE HERNIA REPAIR HYSTERECTOMY HYSTERECTOMY LAMINECTOMY N/A 08/03/2019 Procedure: LAMINOTOMY THORACIC / LUMBAR W/ PLACEMENT SPINAL CORD STIMULATOR; Surgeon: Suly Hutchins MD; Location: [facility] [place] OTHER SURGICAL [...] reviewed, listed controlled substances are consistent with [facility] prescriptions and patient reported use. [...] than left and will follow up with appraisal specialist I believe regarding the shoulder pain [...] imited to physical therapy, massage therapy, acupuncture, palliative care nurse practitioner, along with niki mmended psychological counseling, either privately, or in group sessions offered by private care individuals, community services, or holiness organizations. Appropriate referrals were made at patient [...] and complications with the passage of time. extermination inspector use is also associated with depressions, and liver and renal failure. Finally, these medicines are associated with both physical and emotional addiction and can be difficult to stop after taking for only a few weeks. This document has been created using [employer] Voice Recognition software and [employer]. The entry has been reviewed for content and accuracy, but there may still exist "sound alike" appeals court associate justice word errors and/or unintended additions and deletions. [...] [place] | | | | | | [address] | | | | | | | | +--------+---------+ + + + | 04/03/ | Office | Cardiology | Zuleyka Castillo DO | | | 2019 | Visit | | [address] | | | | | | [place] | | | | | | [address] | | | | | | | [...]
--- OUTSIDE RECORDS SUMMARY | ~2020-03-05 | XMS | Encounter Summary ---
Demographics + + + | Address | [address] | | | [place] [address] | + + + | Home Phone [...] Team Providers + +------+ + | Care Inclusion Teacher Name | Role | Phone | + +------+ + | Oxana Nye | PCP | | + +------+ + Encounter Details +--------+ + + + + | Date | Type | Department | Care Team | Description | +--------+ + + + + | 10/04/ | MyChart | Cardiology General | | Appointment Location | | 2015 | Encounter | at [facility] [address] | | Change: Effective | | | | Ave Mailcode: CH7C | | October 31 | | | | [facility] | | | | | | and Healing, | | | | | | Building | | | | | | Floor [place], [place] | | | | | | [address] | | | | | | [phone] | | | +--------+ + + + [...]
--- OUTSIDE RECORDS SUMMARY | ~2020-03-05 | XMS | Encounter Summary ---
Demographics + + + | Address | [address] | | | [place] [address] | + + + | Home Phone [...] Providers + +------+ + | Care Director Engineering Name | Role | Phone | + [...] + + | 02/17/ | Telephone | [facility] | Denys Sibley, | Imaging (MRI order) | | 2020 | | [facility] | DO [address] | | | | | [address] | [address] [place], [place] | | | | | [address] | [address] | | | | | [place], [place] | | | | | | [address] | | | | | | [phone] | | | +--------+ + + + [...] [place] | | | | | | [address] | | | | | | | | +--------+---------+ + + + | 04/03/ | Office | Cardiology | Zuleyka Castillo DO | | | 2020 | Visit | | [address] | | | | | | [place] | | | | | | [id number] | | | | | | | | +--------+---------+ + + + documented as of this encounter Visit Diagnoses Not on filedocumented in this encounter"
--- OUTSIDE RECORDS SUMMARY | ~2020-03-05 | XMS | Encounter Summary ---
Demographics + + + | Address | [address] | | | [place] [address] | + + + | Home Phone [...] Providers + +------+ + | Care Academic Counselor Name | Role | Phone | + +------+ + | Romy De La Paz MD | PCP | | + +------+ + Encounter Details +--------+ + + + + | Date | Type | Department | Care Team | Description | +--------+ + + + + | 10/18/ | Telephone | [facility] | Shay Dietz | | | 2012 | | MEDICINE [address] | MD Lonny [address] | | | | | [address] [facility] | [place], [place] | | | | | [place] [address] | [address] | | | | | [phone] | | | +--------+ + + + [...] [place] | | | | | | [address] | | | | | | | | +--------+---------+ + + + | 04/03/ | Office | Cardiology | Zuleyka Castillo DO | | | 2019 | Visit | | [address] | | | | | | [place] | | | | | | [id number] | | | | | | | | +--------+---------+ + + + documented as of this encounter Visit Diagnoses Not on filedocumented in this encounter"
--- OUTSIDE RECORDS SUMMARY | ~2020-03-05 | XMS | Encounter Summary ---
Demographics + + + | Address | [address] | | | [place] [address] | + + + | Home Phone [...] Providers + +------+ + | Care Post Doctoral Researcher Name | Role | Phone | [...] | | | | | bilateral | [place], [place] | | | | | | low back | [address] | | | | | | pain with | Phone: | | | | | | right-sided | [phone] | | | | | | sciatica | Fax: | | | | | | | [phone] | | + + + + + [...] | | | | | | UT SURG | | | | | | | IMPLNT | | | | | | | NEUROELECT,E | | | | | | | PIDURAL UT | | | | | | | IMPLANT | | | | | | | NEUROSTIM/RE | | | | | | | CEIVER UT | | | | | | | [...] + + | 08/03/ | Hospital | [facility] | Maykel Hutchins MD | BACK PAIN, LUMBAR | | 2019 - | Encounter | [facility] | [address] | (Primary Dx); | | | | CARE FLOOR [address] | [place], | Chronic bilateral | | 08/04/ | | [address] | [place] [address] | low back pain with | | 2019 | | [place] | [phone] | right-sided sciatica | | | | [address] | | | | | | [phone] | | | +--------+ + + + [...] note might be different from logan phillips. [facility]. 08/04/2019 DISCHARGE SUMMARY PATIENT NAME: [...] by elevating your feet Date Last Reviewed: 8240-6280 [employer]. [address] [place] [address], [place] [address]. All righ ts reserved. This information is not intended as a substitute for professional medical care. Always follow your healthcare professional's instructions. Acetaminophen; Hydrocodone tablets or capsules Brand Names: Anexsia, Lorcet, Lorcet HD, Lorcet Plus, Lortab, Shipman, Verdrocet, Vicodin, Vi codin ES, Vicodin HP, [...] information carefully each time. Talk to your optometry assistant regarding the use of this medicine in children. Special care may be needed. What side effects may I notice from receiving this medicine? Side effects that you should report to your doctor or health manager medicare marketing as soon as p ossible: allergic reactions [...] (report to your doctor or health manager medicare marketing if they continue or are bothersome): constipation [...] to an official disposal site. Contact the [facility] at [phone] or your [facility] government to find a site. If [...] this medicine? Tell your doctor or health manager medicare marketing if your pain does not go away, [...] pharmacist, or health care provider. Copyright 2019 [employer] documented in this encounter Medications at Time [...] Faria MSW - 08/04/2019 2:12 PM PDTCase shipping receiving manager sent out Home Health order to Kadi Carpenter today. The patient would need to follow up with patient on Tuesday. Electronical ly signed by ANEGLO Escudero at 08/04/2019 2:13 PM Julien Luevano ARNP - 08/04/2019 8:41 AM PDT Kori Rubio is a 74 y.o. female patient s/p SCS placement with thoracic sequeira inectomy yesterday. Stayed overnight as patient lives alone. She has a friend that will pick her up today to go home to [facility]. Past Medical History: Diagnosis Date Acid reflux disease Acute renal failure ([facility]) April 2013 Adverse effect of anesthesia hx hallucinations after anesthesia x 3 yrs ago. Anesthesia hallucinated after bladder repair Arthralgia Arthritis Asthma Asthma Back pain Cancer ([facility]) 2004 breast Cataract Cerebrovascular accident (CVA) ([facility]) no per pt Chronic back pain Chronic back pain Chronic constipation Concussion 07/2015 Preceeded by seizure Constipation COPD (chronic obstructive pulmonary disease) ([facility]) Degenerative disc disease Depression Depression Diabetes mellitus ([facility]) Diabetes mellitus, type 2 ([facility]) diet controlled Diabetes type 2, controlled ([facility]) diet controlled Diarrhea Disorder of thyroid [...] 100 mg Oral BID PRN Julien Guzman CASHIER CREDIT HYDROcodone-acetaminophen (NORCO) 10-325 mg per tablet 1 tablet 1 tablet Oral Q4H PRN Julien Guzman CASHIER CREDIT 1 tablet at 08/04/19 0502 HYDROmorphone (DILAUDID) injection 0.2-0.4 mg 0.2-0.4 mg Intravenous Q1H PRN Maykel ortiz MD 0.2 mg at 08/03/19 1700 methocarbamol (ROBAXIN) tablet 1,500 mg 1,500 mg Oral Q6H PRN RENATO DavisP ondansetron (ZOFRAN ODT) disintegrating tablet 4 mg 4 mg Oral Q6H PRN Julien Guzman CASHIER CREDIT rOPINIRole (REQUIP) tablet 4 mg 4 mg Oral 4x Daily PRN Maykel Hutchins MD senna (SENOKOT) tablet 8.6 mg 8.6 mg Oral BID PRN Julien Guzman CASHIER CREDIT sodium chloride 0.45% (1/2 NS) infusion Intravenous Continuous Maykel Hutchins MD 100 mL /hr at 08/03/19 1342 950 mL at 08/03/19 1342 sodium chloride 0.45% (1/2 NS) infusion Intravenous Continuous Julien Guzman CASHIER CREDIT 100 m L/hr at 08/04/19 0057 Allergies [...] [place] | | | | | | [address] | | | | | | | | +--------+---------+ + + + | 04/03/ | Office | Cardiology | Zuleyka Castillo DO | | | 2019 | Visit | | [address] | | | | | | [place] | | | | | | [address] | | | | | | | [...] | | | Needs | | | CANOE MAKER | | | reques | | | [...] Testing | 65 - 99 mg/dL | [facility] | | | POC | performed at [facility];[address] | | LABORATORY | | | | [address];[place] | | | | | | [address] | | | | + + + + + + + + | Specimen | + + | | + + + + + + + | Performing | Address | City/State/Zipcode | Phone Number | | Organization | | | | + + + + + | [facility] | [address] | [place] [address] | [phone] | + + + + + POC Glucose (08/03/2019 4:15 PM PDT) + + + + + + | Component | Value | Ref Range | Performed | Pathologist | | | | | At | Signature | + + + + + + | Glucose, | 99Comment: Testing | 65 - 99 mg/dL | [facility] | | | POC | performed at [facility];[address] | | LABORATORY | | | | [address];[place], [place] | | | | | | [address] | | | | + + + + + + + + | Specimen | + + | | + + + + + + + | Performing | Address | City/State/Zipcode | Phone Number | | Organization | | | | + + + + + | [facility] | [address] | [place] [address] | [phone] | + + + + + POC [...] | | | POC | performed at [facility];[address] | | LABORATORY | | | | [address];[place], [place] | | | | | | [address] | | | | + + + + + + + + | Specimen | + + | | + + + + + + + | Performing | Address | City/State/Zipcode | Phone Number | | Organization | | | | + + + + + | [facility] | [address] | [place] [address] | [phone] | + + + + + POC Glucose (08/03/2019 11:05 AM PDT) + + + + + + | Component | Value | Ref Range | Performed | Pathologist | | | | | At | Signature | + + + + + + | Glucose, | 108 (H)Comment: Testing | 65 - 99 mg/dL | [facility] | | | POC | performed at [facility];[address] | | LABORATORY | | | | [address];[place] | | | | | | [address] | | | | + + + + + + + + | Specimen | + + | | + + + + + + + | Performing | Address | City/State/Zipcode | Phone Number | | Organization | | | | + + + + + | [facility] | [address] | [place] [address] | [phone] | + + + + + LINSEY [...] Testing | 65 - 99 mg/dL | [facility] | | | POC | performed at [facility];[address] | | LABORATORY | | | | [address];[place] | | | | | | [address] | | | | + + + + + + + + | Specimen | + + | | + + + + + + + | Performing | Address | City/State/Zipcode | Phone Number | | Organization | | | | + + + + + | [facility] | [address] | [place] [address] | [phone] | + + + + + POC Glucose (08/03/2019 9:14 AM PDT) + + + + + + | Component | Value | Ref Range | Performed | Pathologist | | | | | At | Signature | + + + + + + | Glucose, | 80Comment: Testing | 65 - 99 mg/dL | [facility] | | | POC | performed at [facility];[address] | | LABORATORY | | | | [address];[place], [place] | | | | | | [address] | | | | + + + + + + + + | Specimen | + + | | + + + + + + + | Performing | Address | City/State/Zipcode | Phone Number | | Organization | | | | + + + + + | [facility] | [address] | [place] [address] | [phone] | + + + + + Type [...] + + + | BB BAND | [id number] | | [facility] | | | | | | LABORATORY | | + + + + + + | BB BAND | Testing performed at | | [facility] | | | | [facility];[address] | | LABORATORY | | | | [address];[place] [address] | | | | + + + + + + + + | Specimen | + + | Blood | + + + + + + + | Performing | Address | City/State/Zipcode | Phone Number | | Organization | | | | + + + + + | [facility] | [address] | [place] [address] | [phone] | + + + + + POC Glucose (08/03/2019 7:23 AM PDT) + + + + + + | Component | Value | Ref Range | Performed | Pathologist | | | | | At | Signature | + + + + + + | Glucose, | 77Comment: Testing | 65 - 99 mg/dL | [facility] | | | POC | performed at [facility];[address] | | LABORATORY | | | | [address];[place] | | | | | | [address] | | | | + + + + + + + + | Specimen | + + | | + + + + + + + | Performing | Address | City/State/Zipcode | Phone Number | | Organization | | | | + + + + + | [facility] | [address] | [place] [address] | [phone] | + + + + + documented [...] | | | | | | longer, hadzls-wgs-mkcvy use of | | | | | [...] | | | | | | | lerzta-zwf-vlovf use of at least | | | [...]
--- OUTSIDE RECORDS SUMMARY | ~2020-03-05 | XMS | Encounter Summary ---
Demographics + + + | Address | [address] | | | [place] [address] | + + + | Home Phone [...] Providers + +------+ + | Care Parts Analyst Name | Role | Phone | + +------+ + | Wendi Aiken | PCP | | + +------+ + Encounter Details +--------+ + + + + | Date | Type | Department | Care Team | Description | +--------+ + + + + | 12/28/ | Hospital | [facility] | Conversion | Diagnosis unknown | | 2018 | Encounter | CONVERSION [address] | Transaction, | | | | | [address] | Provider Unknown | | | | | [place], [place] | [phone] | | | | | [address] | | | | | | [phone] | | | +--------+ + + + [...] [place] | | | | | | [address] | | | | | | | | +--------+---------+ + + + | 04/03/ | Office | Cardiology | Zuleyka Castillo DO | | | 2019 | Visit | | [address] | | | | | | [place], [place] | | | | | | [address] | | | | | | | [...] Reji Pacheco Conversion - 06/13/2019 8:20 AM PDT This is [...]
--- OUTSIDE RECORDS SUMMARY | ~2020-03-05 | XMS | Encounter Summary ---
Demographics + + + | Address | [address] | | | [place] [address] | + + + | Home Phone [...] Team Providers + +------+ + | Care Frit Burner Name | Role | Phone | + +------+ + PCP | Unavailable | + +------+ + Encounter Details +--------+ + + + + | Date | Type | Department | Care Team | Description | +--------+ + + + + | 10/31/ | Hospital | [facility] | | | | 1999 - | Encounter | MED CTR CANCER | | | | | | [address] [place] | | | | 03/16/ | | [place], [place] | | | | 2000 | | [address] | | | | | | [phone] | | | +--------+ + + + [...] [place] | | | | | | [address] | | | | | | | | +--------+---------+ + + + | 04/03/ | Office | Cardiology | Zuleyka Castillo DO | | | 2020 | Visit | | [address] | | | | | | [place] | | | | | | [address] | | | | | | | | +--------+---------+ + + + documented as of this encounter Visit Diagnoses Not on filedocumented in this encounter"
--- OUTSIDE RECORDS SUMMARY | ~2020-03-05 | XMS | Encounter Summary ---
Demographics + + + | Address | [address] | | | [place] [address] | + + + | Home Phone [...] Team Providers + +------+ + | Care Used Car Salesperson Name | Role | Phone | [...] [address] | | | | | [place], [place] | [place] [address] | | | | | [address] | [phone] | | | | | [phone] | | | +--------+ + + + [...] [place] | | | | | | [address] | | | | | | | | +--------+---------+ + + + | 04/03/ | Office | Cardiology | Zuleyka Castillo DO | | 2019 | Visit | | [address] | | | | | | [place] | | | | | | [address] | | | | | | | | +--------+---------+ + + + documented as of this encounter Visit Diagnoses Not on filedocumented in this encounter"
--- OUTSIDE RECORDS SUMMARY | ~2020-03-05 | XMS | Encounter Summary ---
Demographics + + + | Address | [address] | | | [place] [address] | + + + | Home Phone [...] Team Providers + +------+ + | Care Dredgemaster Name | Role | Phone | + +------+ + | Wendi Aiken | PCP | | + +------+ + Encounter Details +--------+ + + + + | Date | Type | Department | Care Team | Description | +--------+ + + + + | 12/28/ | Hospital | [facility] | Conversion | Diagnosis unknown | | 2018 | Encounter | CONVERSION [address] | Transaction, | | | | | [address] | Provider Unknown | | | | | [place], [place] | [phone] | | | | | [address] | | | | | | [phone] | | | +--------+ + + + [...] [place] | | | | | | [address] | | | | | | | | +--------+---------+ + + + | 04/03/ | Office | Cardiology | Zuleyka Castillo DO | | | 2019 | Visit | | [address] | | | | | | [place], [place] | | | | | | [address] | | | | | | | [...] Procedure Note | + + | Reji aPcheco - 06/13/2019 8:20 AM PDT This is [...]
--- OUTSIDE RECORDS SUMMARY | ~2020-03-05 | XMS | Encounter Summary ---
Demographics + + + | Address | [address] | | | [place] [address] | + + + | Home Phone [...] Providers + +------+ + | Care Public Welfare Worker Name | Role | Phone | + +------+ + | Romy De La Paz MD | PCP | | + +------+ + Encounter Details +--------+ + + + + | Date | Type | Department | Care Team | Description | +--------+ + + + + | 07/18/ | Hospital | [facility] | Maykel Hutchins MD | | | 2019 | Encounter | [facility] | [address] | | | | | [address] | [place], | | | | | [place], [place] | [place] [address] | | | | | [address] | [phone] | | | | | [phone] | | | +--------+ + + + [...] Decreased | | | | | | skilled nursing current | Responsiveness (May | | | [...] [place] | | | | | | [id number] | | | | | | | | +--------+---------+ + + + | 04/03/ | Office | Cardiology | Zuleyka Castillo DO | | 2019 | Visit | | [address] | | | | | | [place] | | | | | | [address] | | | | | | | [...]
--- OUTSIDE RECORDS SUMMARY | ~2020-03-05 | XMS | Encounter Summary ---
Demographics + + + | Address | [address] | | | [place] [address] | + + + | Home Phone [...] Team Providers + +------+ + | Care Worm Raiser Name | Role | Phone | + +------+ + PCP | Unavailable | + +------+ + Encounter Details +--------+ + + + + | Date | Type | Department | Care Team | Description | +--------+ + + + + | 08/31/ | Hospital | [facility] | | | | 2010 | Encounter | MED CTR LABORATORY | | | | | | [address] | | | | | | [place] | | | | | | [address] | | | | | | [phone] | | | +--------+ + + + [...] [place] | | | | | | [address] | | | | | | | | +--------+---------+ + + + | 04/03/ | Office | Cardiology | Zuleyka Castillo DO | | | 2019 | Visit | | [address] | | | | | | [place] [facility] [place] | | | | | | [address] | | | | | | | [...] performed on the Virg[facility] | ng/mL | IS[facility] | | | | [facility] [...] + | [address] | [address] | [place], [place] | [phone] | | [facility] | | [address] | | | - LABORATORY | | | | + + + + + | [address] | [address] | [place], [place] | | | [facility] | | [address], [facility] | | | - LABORATORY | | | | + + + + + documented in this encounter Visit Diagnoses Not on filedocumented in this encounter"
--- OUTSIDE RECORDS SUMMARY | ~2020-03-05 | XMS | Encounter Summary ---
Demographics + + + | Address | [address] | | | [place] [address] | + + + | Home Phone [...] + +------+ + | Care Support Services Coordinator Name | Role | Phone | [...] + + | 08/16/ | Office | [facility] | Gabi Guzman | S/P insertion of | | 2019 | Visit | [facility]ENTER | [address] | spinal cord | | | | ORTHOPEDIC SPINE | [address] | stimulator (Primary | | | | [address] | [place] [address] | Dx); DDD | | | | [place], [place] | [phone] | (degenerative disc | | | | [address] | | disease), lumbar; | | | | [phone] | | Facet arthritis of | | [...] accompanied by her friend, and the Akhtar assisted sales representative for the spinal cord stimulator, [...] non-medical: Not on file Occupational History Occupation: [employer] Tobacco Use Smoking status: Never Smoker Smokeless [...] Procedure: KYPHOPLASTY; Surgeon: Alfredo Casillas DO; Location: [facility] MAIN OR; Service: Pa in [...] Asthma Back pain Cancer ([facility]) 2005 breast Cataract Cerebrovascular accident (CVA) ([facility]) no per pt Chronic back pain Chronic back pain Chronic constipation Concussion 07/2015 Preceeded by seizure Constipation COPD (chronic obstructive pulmonary disease) ([facility]) Degenerative disc disease Depression Depression Diabetes mellitus ([facility]) Diabetes mellitus, type 2 ([facility]) diet controlled Diabetes type 2, controlled (HCC) [...] [place] | | | | | | [id number] | | | | | | | | +--------+---------+ + + + | 04/03/ | Office | Cardiology | Zuleyka Castillo DO | | | 2019 | Visit | | [address] | | | | | | [place] | | | | | | [id number] | | | | | | | [...]
--- OUTSIDE RECORDS SUMMARY | ~2020-03-05 | XMS | Encounter Summary ---
Demographics + + + | Address | [address] | | | [place] [address] | + + + | Home Phone [...] + +------+ + | Care Director Of [employer] Name | Role | Phone | + +------+ + | Wendi Aiken | PCP | | + +------+ + Encounter Details +--------+ + + + + | Date | Type | Department | Care Team | Description | +--------+ + + + + | 04/06/ | Hospital | [facility] | JuanNick, | Lumbar radiculopathy | | 2018 | Encounter | MED CTR XRAY [address] | PA-C [address] | | | | | [place] | [address] [place] | | | | | [place] [address] | [place] [address] | | | | | [phone] | [phone] | | | | | | | | | | | | Spanner Operator, [facility] | | | | | [...] [place] | | | | | | [address] | | | | | | | | +--------+---------+ + + + | 04/03/ | Office | Cardiology | Zuleyka Castillo DO | | | 2019 | Visit | | [address] | | | | | | [place] | | | | | | [address] | | | | | | | [...] 1:20 | | | | | ONCE, [facility] 04/06/18 at 1330, For 1 | [...] | | | | | Other, ONCE, [facility] 04/06/18 at 1330, | | PM PDT | | | | | For 1 dose | | | | | | + +-------+ +-------+---+---+ +---+---+ | | | +---+---+ + +-------+ +-------+---+---+ | lidocaine (PF) 1% injection 2 | Given | 04/06/20 | 2 mLs | | | | mL 2 mL, Other, ONCE, [facility] 04/06/18 | | 18 1:20 | [...] | | (Comment | | Intradermal, ONCE, [facility] 04/06/18 at | | PM PDT | | | ) | | 1330, For 1 dose | | | | | | + +-------+ +-------+---+ + +---+---+ | | | +---+---+ documented in this encounter"
--- OUTSIDE RECORDS SUMMARY | ~2020-03-05 | XMS | Encounter Summary ---
Demographics + + + | Address | [address] | | | [place] [address] | + + + | Home Phone [...] Providers + +------+ + | Care Legal Billing Analyst Name | Role | Phone | [...] Provider Unknown | | | | | [place], [place] | | | | | | [address] | (Fax) | | | | | [phone] | | | +--------+ + + + [...] [place] | | | | | | [address] | | | | | | | | +--------+---------+ + + + | 04/03/ | Office | Cardiology | Zuleyka Castillo DO | | | 2019 | Visit | | [address] | | | | | | [place] | | | | | | [phone] | | | | | | | [...]
--- OUTSIDE RECORDS SUMMARY | ~2020-03-05 | XMS | Encounter Summary ---
Demographics + + + | Address | [address] | | | [place] [address] | + + + | Home Phone [...] Team Providers + +------+ + | Care Hypo Splasher Name | Role | Phone | + +------+ + PCP | Unavailable | + +------+ + Encounter Details +--------+ + + + + | Date | Type | Department | Care Team | Description | +--------+ + + + + | 10/06/ | [facility] | [facility] | Robert Perales | | | 2010 | Encounter | MED CTR SLEEP | MD [facility] | | | | | CENTER [address] | [address] [place] | | | | | [place], [place] | [place] [address] | | | | | [address] | [phone] | | | | | [phone] | | | +--------+ + + + [...] [place] | | | | | | [address] | | | | | | | | +--------+---------+ + + + | 04/03/ | Office | Cardiology | Zuleyka Castillo DO | | | 2019 | Visit | | [address] | | | | | | [place] | | | | | | [id number] | | | | | | | | +--------+---------+ + + + documented as of this encounter Visit Diagnoses Not on filedocumented in this encounter"
--- OUTSIDE RECORDS SUMMARY | ~2020-03-05 | XMS | Encounter Summary ---
Demographics + + + | Address | [address] | | | [place] [address] | + + + | Home Phone [...] [address] | | | | | [facility] AD[facility] [address] | [address] [facility] [place], | | | 08/07/ | | [address]th [place], [place] | [place] [address] | | | 2004 | | [address] | [phone] | | | | | [phone] | | | +--------+ + + + [...] [place] | | | | | | [address] | | | | | | | | +--------+---------+ + + + | 04/03/ | Office | Cardiology | Zuleyka Castillo DO | | | 2019 | Visit | | [address] | | | | | | [place] | | | | | | [address] | | | | | | | | +--------+---------+ + + + documented as of this encounter Visit Diagnoses Not on filedocumented in this encounter"
--- OUTSIDE RECORDS SUMMARY | ~2020-03-05 | XMS | Encounter Summary ---
Demographics + + + | Address | [address] | | | [place] [address] | + + + | Home Phone [...] Providers + +------+ + | Care Hazardous Waste Material Technician Name | Role | Phone | + +------+ + PCP | Unavailable | + +------+ + Encounter Details +--------+ + + + + | Date | Type | Department | Care Team | Description | +--------+ + + + + | 10/06/ | [facility] | [facility] | Robert Perales | | | 2010 | Encounter | MED CTR SLEEP | MD Eric Rivera [place] | | | | | CENTER [address] [place] | | | | | [place], [place] | [place] [address] | | | | | [address] | [phone] | | | | | [phone] | | | +--------+ + + + [...] [place] | | | | | | [address] | | | | | | | | +--------+---------+ + + + | 04/03/ | Office | Cardiology | Zuleyka Castillo DO | | | 2019 | Visit | | [address] | | | | | | [place] | | | | | | [id number] | | | | | | | | +--------+---------+ + + + documented as of this encounter Visit Diagnoses Not on filedocumented in this encounter"
--- OUTSIDE RECORDS SUMMARY | ~2020-03-05 | XMS | Encounter Summary ---
Demographics + + + | Address | [address] | | | [place] [address] | + + + | Home Phone [...] Providers + +------+ + | Care Heel Stainer Name | Role | Phone | + [...] | [facility] | [place], [place] | | | | | [address] | [address] | | | | | [address] | | | | | | Ridd[place], [address] [place] [address] | | | | | | [place], [place] | | | | | | [address] | | | | | | [phone] | | | +--------+ + + + [...]
--- OUTSIDE RECORDS SUMMARY | ~2020-03-05 | XMS | Encounter Summary ---
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 Sj Valdes M.D. [address] [place] [address], [address] [place] [address] FAX: NEUROSURGERY HISTORY AND PHYSICAL EXAMINATION CHIEF [...] deficits with short or care home memory. MOTOR EXAM: (5 IS NORMAL) * Indicates pain limited MUSCLE/ MOVEMENT: RIGHT LEFT Deltoids 5 4+ Biceps 5 5 Triceps 5 5 Wrist Flexion 5 5 Wrist Extension 5 5 Median Intrinsics 5 4 Ulnar Intrinsics 5 4 Rouge Miller Strength 5 4 Hip Flexion 5 4 [...] [place] | | | | | | [address] | | | | | | | | +--------+---------+ + + + | 04/03/ | Office | Cardiology | Zuleyka Castillo DO | | | 2019 | Visit | | [address] | | | | | | [place] | | | | | | [address] | | | | | | | [...]
--- OUTSIDE RECORDS SUMMARY | ~2020-03-05 | XMS | Encounter Summary ---
Demographics + + + | Address | [address] | | | [place] [address] | + + + | Home Phone [...] Providers + +------+ + | Care Metal Box Maker Name | Role | Phone | + +------+ + PCP | Unavailable | + +------+ + Encounter Details +--------+ + + + + | Date | Type | Department | Care Team | Description | +--------+ + + + + | 02/22/ | Hospital | [facility] | Ken Craft | | | 2005 - | Encounter | HEART MED CTR BEH | MD Masha [address] | | | | | TH ADULT [address] [place], [place] | | | 02/28/ | | [address] [place], [place] | [address] | | | 2005 | | [address] | | | | | | [phone] | Samantha Estes | | | | | | MD Jewel [address] | | | | | | [address] | | | | | | [place] [address] | | | | | | | [...] [place] | | | | | | [address] | | | | | | | | +--------+---------+ + + + | 04/03/ | Office | Cardiology | Zuleyka Castillo DO | | | 2019 | Visit | | [address] | | | | | | [place] | | | | | | [id number] | | | | | | | | +--------+---------+ + + + documented as of this encounter Visit Diagnoses Not on filedocumented in this encounter"
--- OUTSIDE RECORDS SUMMARY | ~2020-03-05 | XMS | Encounter Summary ---
Demographics + + + | Address | [address] | | | [place] [address] | + + + | Home Phone [...] Providers + +------+ + | Care Assistant Finance Director Name | Role | Phone | [...] + + | 04/17/ | Telephone | [facility] | Nick Martinez, | Other (Back Brace) | | 2017 | | PHYSIATRY [address] | PA-C [address] | | | | | [address] | [address] [place] | | | | | [place], [place] | [place] [address] | | | | | [address] | [phone] | | | | | [phone] | | | +--------+ + + + [...] [place] | | | | | | [address] | | | | | | | | +--------+---------+ + + + | 04/03/ | Office | Cardiology | Zuleyka Castillo DO | | | 2020 | Visit | | [address] | | | | | | [place] | | | | | | [phone] | | | | | | | | +--------+---------+ + + + documented as of this encounter Visit Diagnoses Not on filedocumented in this encounter"
--- OUTSIDE RECORDS SUMMARY | ~2020-03-05 | XMS | Encounter Summary ---
Demographics + + + | Address | [address] | | | [place] [address] | + + + | Home Phone [...] + +------+ + | Care Security Operations Center Analyst Name | Role | Phone | [...] | | | | [address] | [place] [address] | | | | | [place], [place] | [phone] | | | | | [address] | | | | | | [phone] | | | +--------+ + + + [...] [place] | | | | | | [id number] | | | | | | | | +--------+---------+ + + + | 04/03/ | Office | Cardiology | Zuleyka Castillo DO | | 2019 | Visit | | [address] | | | | | | [place] | | | | | | [address] | | | | | | | [...]
--- OUTSIDE RECORDS SUMMARY | ~2020-03-05 | XMS | Encounter Summary ---
Demographics + + + | Address | [address] | | | [place] [address] | + + + | Home Phone [...] Team Providers + +------+ + | Care Crab Fisherman Name | Role | Phone | + [...] Provider Unknown | | | | | [place], [place] | | | | | | [address] | (Fax) | | | | | [phone] | | | +--------+ + + + [...] [place] | | | | | | [address] | | | | | | | | +--------+---------+ + + + | 04/03/ | Office | Cardiology | Zuleyka Castillo DO | | | 2019 | Visit | | [address] | | | | | | [place] | | | | | | [phone] | | | | | | | [...]
--- OUTSIDE RECORDS SUMMARY | ~2020-03-05 | XMS | Encounter Summary ---
Demographics + + + | Address | [address] | | | [place] [address] | + + + | Home Phone [...] Providers + +------+ + | Care Acetylene Torch Solderer Name | Role | Phone | + [...] + + | 07/05/ | Telephone | [facility] | Maykel Hutchins MD | Advice Only; Other | | 2019 | | NEUROSCIENCE CENTER | [address] | (inform office) | | | | ORTHOPEDIC SPINE | [place] | | | | | [address] [place] | [place] [address] | | | | | [place] | [phone] | | | | | [address] | | | | | | [phone] | | | +--------+ + + + [...] [place] | | | | | | [address] | | | | | | | | +--------+---------+ + + + | 04/03/ | Office | Cardiology | Zuleyka Castillo DO | | | 2019 | Visit | | [address] | | | | | | [place] | | | | | | [address] | | | | | | | [...]
--- OUTSIDE RECORDS SUMMARY | ~2020-03-05 | XMS | Encounter Summary ---
Demographics + + + | Address | [address] | | | [place] [address] | + + + | Home Phone [...] Team Providers + +------+ + | Care Welder/Fabricator Name | Role | Phone | + [...] | | | | | [facility] | [place] [address] | | | | | [place] [address] | | | | | | [phone] | | | +--------+ + + + [...] [place] | | | | | | [address] | | | | | | | | +--------+---------+ + + + | 04/03/ | Office | Cardiology | Zuleyka Castillo DO | | | 2019 | Visit | | [address] | | | | | | [place] | | | | | | [address] | | | | | | | [...]
--- OUTSIDE RECORDS SUMMARY | ~2020-03-05 | XMS | Encounter Summary ---
Demographics + + + | Address | [address] | | | [place] [address] | + + + | Home Phone [...] Team Providers + +------+ + | Care Quarter Doper Name | Role | Phone | + +------+ + | Wendi Aiken | PCP | | + +------+ + Encounter Details +--------+ + + + + | Date | Type | Department | Care Team | Description | +--------+ + + + + | 12/28/ | Hospital | [facility] | Conversion | Diagnosis unknown | | 2018 | Encounter | CONVERSION [address] | Transaction, | | | | | [address] | Provider Unknown | | | | | [place], [place] | [phone] | | | | | [address] | | | | | | [phone] | | | +--------+ + + + [...] [place] | | | | | | [address] | | | | | | | | +--------+---------+ + + + | 04/03/ | Office | Cardiology | Zuleyka Castillo DO | | | 2019 | Visit | | [address] | | | | | | [place], [place] | | | | | | [address] | | | | | | | [...]
--- OUTSIDE RECORDS SUMMARY | ~2020-03-05 | XMS | Encounter Summary ---
Demographics + + + | Address | [address] | | | [place] [address] | + + + | Home Phone [...] Team Providers + +------+ + | Care Grape Crusher Name | Role | Phone | + [...] + + | 04/10/ | Telephone | [facility] | Nick Martinez, | Medication Prior | | 2017 | | PHYSIATRY [address] | PA-C [address] | Authorization | | | | [address] | [address] [place] | (Lidocaine Patch ) | | | | [place] [facility] | [place] [address] | | | | | [address] | [phone] | | | | | [phone] | | | +--------+ + + + [...] [place] | | | | | | [address] | | | | | | | | +--------+---------+ + + + | 04/03/ | Office | Cardiology | Zuleyka Castillo DO | | | 2020 | Visit | | [address] | | | | | | [place] | | | | | | [phone] | | | | | | | | +--------+---------+ + + + documented as of this encounter Visit Diagnoses Not on filedocumented in this encounter"
--- OUTSIDE RECORDS SUMMARY | ~2020-03-05 | XMS | Encounter Summary ---
Demographics + + + | Address | [address] | | | [place] [address] | + + + | Home Phone [...] Providers + +------+ + | Care Iron Carrier Name | Role | Phone | [...] | | [address] | [place] [address] | | | | | [place] | [phone] | | | | | [address] | | | | | | [phone] | | | +--------+ + + + [...] [place] | | | | | | [address] | | | | | | | | +--------+---------+ + + + | 04/03/ | Office | Cardiology | Zuleyka Castillo DO | | | 2019 | Visit | | [address] | | | | | | [place] | | | | | | [address] | | | | | | | | +--------+---------+ + + + documented as of this encounter Visit Diagnoses Not on filedocumented in this encounter"
--- OUTSIDE RECORDS SUMMARY | ~2020-03-05 | XMS | Encounter Summary ---
Demographics + + + | Address | [address] | | | [place] [address] | + + + | Home Phone [...] Providers + +------+ + | Care Certified Solid Waste Facility Operator Name | Role | Phone | [...] | 10/29/ | Telephone | [facility] | Sj Valdes MD | Appointment | | 2013 | | NEUROSURGERY [address] | [address] | (Increased | | | | [address] | [place] [address] | pain-requesting | | | | [place] | [phone] | [facility] | | | | [address] | | | | | | [phone] | | | +--------+ + + + [...] [place] | | | | | | [address] | | | | | | | | +--------+---------+ + + + | 04/03/ | Office | Cardiology | Zuleyka Castillo DO | | | 2019 | Visit | | [address] | | | | | | [place] | | | | | | [id number] | | | | | | | | +--------+---------+ + + + documented as of this encounter Visit Diagnoses Not on filedocumented in this encounter"
--- OUTSIDE RECORDS SUMMARY | ~2020-03-05 | XMS | Encounter Summary ---
Demographics + + + | Address | [address] | | | [place] [address] | + + + | Home Phone [...] Phone | + + +---------+ + | Gisueppe Menchaca | ECON | Unknown | | + + +---------+ + | Nathalia Js | ECON | Unknown | | + + +---------+ + Care Team Providers + +------+ + | Care Interpretive Program Coordinator Name | Role | Phone [...] + + | 05/09/ | Telephone | [facility] | Nick Martinez, | Results, Imaging | | 2018 | | PHYSIATRY [address] | PA-C [address] | | | | | [address] | [address] [place] | | | | | [place], [place] | [place] [address] | | | | | [address] | [phone] | | | | | [phone] | | | +--------+ + + + [...] [place] | | | | | | [address] | | | | | | | | +--------+---------+ + + + | 04/03/ | Office | Cardiology | Zuleyka Castillo DO | | | 2020 | Visit | | [address] | | | | | | [place] | | | | | | [address] | | | | | | | | +--------+---------+ + + + documented as of this encounter Visit Diagnoses Not on filedocumented in this encounter"
--- OUTSIDE RECORDS SUMMARY | ~2020-03-05 | XMS | Encounter Summary ---
Demographics + + + | Address | [address] | | | [place] [address] | + + + | Home Phone [...] Providers + +------+ + | Care Metal Bench Patternmaker Name | Role | Phone | + [...] | | | stenosis | B | [address] | | | | | | [place], [place] | Phone: | | | | | | [address] | [phone] | | | | | | Phone: | Fax: | | | | | | [phone] | [phone] | | | | | | Fax: | | | | | | | [phone] | | + +--------+ + + + + Encounter Details +--------+---------+ + + + | Date | Type | Department | Care Team | Description | +--------+---------+ + + + | 07/18/ | Office | [facility] | Denys Sibley, | Lumbar region | | 2018 | Visit | [facility] | DO [address] | somatic dysfunction | | | | DOLOROLOGY [address] [place] | (Primary Dx); | | | | [address] [place] | [address] | Intractable back | | | | [place] | | pain; Encounter for | | | | [address] | | long-term use of | | | | [phone] | | opiate analgesic; | | | [...] Medical History: Diagnosis Date Acute renal failure ([facility]) April 2013 Anesthesia hallucinated after bladder repair [...] to physical therapy, mass age therapy, acupuncture, hospice care sales consultant, along with recommended psychological counseling , either privately, or in group sessions offered by private care individuals, community serv ices, or faith organizations. Appropriate referrals were made at patient [...] Will return to office in 4 weeks, [facility] was consulted and appears appropriate, Urine [...] complications with the passage of time. 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
--- OUTSIDE RECORDS SUMMARY | ~2020-03-05 | XMS | Encounter Summary ---
Demographics + + + | Address | [address] | | | [place] [address] | + + + | Home Phone [...] + +------+ + | Care Director Of Sales Support Name | Role | Phone | + +------+ + | No, Physician | PCP | Unavailable | + +------+ + Encounter Details +--------+ + + + + | Date | Type | Department | Care Team | Description | +--------+ + + + + | 01/08/ | [facility] | [facility] | Shay Dietz | Lumbar radiculopathy | | 2014 | Encounter | MED CTR XRAY [address] | T, [address] | | | | | [place] | [facility] [place] | | | | | [place] [address] | [address] | | | | | [phone] | | | | | | | Bicycle Fitter, [place] | | | | | | [place] [...] [place] | | | | | | [address] | | | | | | | | +--------+---------+ + + + | 04/03/ | Office | Cardiology | Zuleyka Castillo DO | | | 2019 | Visit | | [address] | | | | | | [place] | | | | | | [address] | | | | | | | [...] radiculopathy ICD-9 Code 724.4 Ms. Sheikh | [facility] | | Joanne presents to the fluoroscopy suite for a | [facility] | | fluoroscopically-guided left L5-S1 transforaminal [...] + | [facility] | [address] | [place], [place] | [phone] | | [facility] | | [address] | | | - IMAGING | | [...]
--- OUTSIDE RECORDS SUMMARY | ~2020-03-05 | XMS | Encounter Summary ---
Demographics + + + | Address | [address] | | | [place] [address] | + + + | Home Phone [...] Team Providers + +------+ + | Care Grain Sacker Name | Role | Phone | + [...] + + | 08/06/ | Telephone | [facility] | Maykel Hutchins MD | Medication Question | | 2019 | | NEUROSCIENCE CENTER | [address] | | | | | ORTHOPEDIC SPINE | [place] | | | | | [address] [place] | [place] [address] | | | | | [place] | [phone] | | | | | [address] | | | | | | [phone] | | | +--------+ + + + [...] [place] | | | | | | [address] | | | | | | | | +--------+---------+ + + + | 04/03/ | Office | Cardiology | Zuleyka Castillo DO | | | 2019 | Visit | | [address] | | | | | | [place] | | | | | | [phone] | | | | | | | | +--------+---------+ + + + documented as of this encounter Visit Diagnoses Not on filedocumented in this encounter"
--- OUTSIDE RECORDS SUMMARY | ~2020-03-05 | XMS | Encounter Summary ---
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 | MED CTR XRAY [address] | [address] | lumbar region | | | | [place] | [address] | without myelopathy | | | | [place] [address] | [place] [address] | or radiculopathy | | | | [phone] | [phone] | (Primary Dx); | | | | | | 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 | Beena Hargrove [place] | [phone] | | [facility] | | [address] | | | - IMAGING | | [...]
--- OUTSIDE RECORDS SUMMARY | ~2020-03-05 | XMS | Encounter Summary ---
Demographics + + + | Address | [address] | | | [place] [address] | + + + | Home Phone [...] Team Providers + +------+ + | Care Painter Railroad Car Name | Role | Phone | + [...] | | 2012 | | [facility] | [address] | | | | | [address] | [facility] | | | | | [address] [place] | [place] [address] | | | | | Riddhi [facility] floor | [phone] | | | | | [place], [place] | | | | | | [address] | | | | | | [phone] | | | +--------+ + + + [...]
--- OUTSIDE RECORDS SUMMARY | ~2020-03-05 | XMS | Encounter Summary ---
Demographics + + + | Address | [address] | | | [place] [address] | + + + | Home Phone [...] Team Providers + +------+ + | Care Robotics Specialist Name | Role | Phone | [...] | | | | | | | MT SURG | | | | | | | IMPLNT | | | | | | | NEUROELECT,E | | | | | | | PIDURAL MT | | | | | | | IMPLANT | | | | | | | NEUROSTIM/RE | | | | | | | CEIVER MT | | | | | | | [...] + + | 08/03/ | Surgery | [facility] | Maykel Hutchins MD | LAMINOTOMY THORACIC | | 2019 | | [facility] | [address] | / LUMBAR W/ | | | | OPERATING ROOM [address] | [address] | PLACEMENT SPINAL | | | | [address] | [place] [address] | CORD STIMULATOR | | | | [place] | [phone] | | | | | [address] | | | | | | [phone] | | | +--------+---------+ + + + [...] be different from logan phillips. [facility]. 08/04/2019 DISCHARGE SUMMARY PATIENT NAME: Kori [...] by elevating your feet Date Last Reviewed: 1996-7628 [employer] [place] [address]. All righ ts reserved. This information is [...] carefully each time. Talk to your client relationship manager regarding the use of this medicine in children. Special care may be needed. What side effects may I notice from receiving this medicine? Side effects that you should report to your doctor or health prompt care rn as soon as p ossible: allergic reactions [...] attention (report to your doctor or health prompt care rn if they continue or are bothersome): constipation [...] site. Contact the JEF at or your [facility] to find a site. If [...] this medicine? 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 Past Medical History: Diagnosis Date Acid reflux disease Acute renal failure ([facility]) April 2013 Adverse effect of anesthesia hx hallucinations after anesthesia x 3 yrs ago. Anesthesia hallucinated after bladder repair Arthralgia Arthritis Asthma Asthma Back pain Cancer ([facility]) 2004 breast Cataract Cerebrovascular accident (CVA) ([facility]) no per pt Chronic back pain Chronic back pain Chronic constipation Concussion 07/2015 Preceeded by seizure Constipation COPD (chronic obstructive pulmonary disease) ([facility]) Degenerative disc disease Depression Depression Diabetes mellitus ([facility]) Diabetes mellitus, type 2 ([facility]) diet controlled Diabetes type 2, controlled ([facility]) diet controlled Diarrhea Disorder of thyroid [...] [place] | | | | | | [address] | | | | | | | | +--------+---------+ + + + | 04/03/ | Office | Cardiology | Zuleyka Castillo DO | | | 2019 | Visit | | [address] | | | | | | [place] | | | | | | [address] | | | | | | | [...] | | | Needs | | | VISUAL MERCHANDISING ASSOCIATE | | | reques | | | [...] | LABORATORY | | | | [address];[place], [place] | | | | | | [address] | | | | + + + + + + + + | Specimen | + + | | + + + + + + + | Performing | Address | City/State/Zipcode | Phone Number | | Organization | | | | + + + + + | [facility] | [address] | [place] [address] | [phone] | + + + + + POC Glucose (08/03/2019 4:15 PM PDT) + + + + + + | Component | Value | Ref Range | Performed | Pathologist | | | | | At | Signature | + + + + + + | Glucose, | 99Comment: Testing | 65 - 99 mg/dL | [facility] | | | POC | performed at [facility];[address] | | LABORATORY | | | | [address];[place] | | | | | | [address] | | | | + + + + + + + + | Specimen | + + | | + + + + + + + | Performing | Address | City/State/Zipcode | Phone Number | | Organization | | | | + + + + + | [facility] | [address] | [place] [address] | [phone] | + + + + + POC Glucose (08/03/2019 1:08 PM PDT) + + + + + + | Component | Value | Ref Range | Performed | Pathologist | | | | | At | Signature | + + + + + + | Glucose, | 107 (H)Comment: Testing | 65 - 99 mg/dL | [facility] | | | POC | performed at [facility];[address] | | LABORATORY | | | | [address];[place], [place] | | | | | | [address] | | | | + + + + + + + + | Specimen | + + | | + + + + + + + | Performing | Address | City/State/Zipcode | Phone Number | | Organization | | | | + + + + + | [facility] | [address] | [place] [address] | [phone] | + + + + + POC [...] [place] | | | | | | [address] | | | | + + + + + + + + | Specimen | + + | | + + + + + + + | Performing | Address | City/State/Zipcode | Phone Number | | Organization | | | | + + + + + | [facility] | [address] | [place] [address] | [phone] | + + + + + [place] [...] + + | Performing | Address | City/State/In[facility] House Health Centercode | Phone Number | | [...] | LABORATORY | | | | [address];[place], [place] | | | | | | [address] | | | | + + + + + + + + | Specimen | + + | | + + + + + + + | Performing | Address | City/State/Zipcode | Phone Number | | Organization | | | | + + + + + | [facility] | [address] | [place] [address] | [phone] | + + + + + POC [...] | LABORATORY | | | | [address];[place] | | | | | | [address] | | | | + + + + + + + + | Specimen | + + | | + + + + + + + | Performing | Address | City/State/Zipcode | Phone Number | | Organization | | | | + + + + + | [facility] | [address] | [place] [address] | [phone] | + + + + + Type [...] + + + | [facility] | [id number] | | [facility] | | | | | | LABORATORY | | + + + + + + | [facility] | Testing performed at | | [facility] | | | | [facility];[address] | | LABORATORY | | | | [address];[place] [address] | | | | + + + + + + + + | Specimen | + + | Blood | + + + + + + + | Performing | Address | City/State/Zipcode | Phone Number | | Organization | | | | + + + + + | [facility] | [address] | [place] [address] | [phone] | + + + + + POC Glucose (08/03/2019 7:23 AM PDT) + + + + + + | Component | Value | Ref Range | Performed | Pathologist | | | | | At | Signature | + + + + + + | Glucose, | 77Comment: Testing | 65 - 99 mg/dL | [facility] | | | POC | performed at [facility];[address] | | LABORATORY | | | | [address];[place] | | | | | | [address] | | | | + + + + + + + + | Specimen | + + | | + + + + + + + | Performing | Address | City/State/Zipcode | Phone Number | | Organization | | | | + + + + + | [facility] | [address] | [place] [address] | [phone] | + + + + + documented [...]
--- OUTSIDE RECORDS SUMMARY | ~2020-03-05 | XMS | Encounter Summary ---
Demographics + + + | Address | [address] | | | [place] [address] | + + + | Home Phone [...] Team Providers + +------+ + | Care Laborer Tan House Name | Role | Phone | [...] | | | compression | DRIVE | [place] [address] | | | | | fracture of | [place], | Phone: | | | | | fifth lumbar | [place] [address] | [phone] | | | | | vertebra | Phone: | Fax: | | | | | sequela | [phone] | [phone] | | | | | Degenerative | Fax: | | | | | | lumbar | [phone] | | | | | | spinal [...] + + | 09/18/ | Office | [facility] | Alfredo Casillas, DO | S/P insertion of | | 2019 | Visit | [facility] | [address] | spinal cord | | | | [address] | [place] [address] | stimulator (Primary | | | | [address] [place], | [phone] | Dx); Spinal stenosis | | | | [place] [address] | | of lumbosacral | | | | [phone] | | region; Lumbar | | | [...] Casillas DO - 09/18/2019 9:10 AM PST [facility]: Interventional Pain Management 09/18/2019 Kori [...] Date Acid reflux disease Acute renal failure ([facility]) April 2013 Adverse effect of anesthesia hx hallucinations after anesthesia x 3 yrs ago. Anesthesia hallucinated after bladder repair Arthralgia Arthritis Asthma Asthma Back pain Cancer ([facility]) 2004 breast Cataract Cerebrovascular accident (CVA) ([facility]) no per pt Chronic back pain Chronic back pain Chronic constipation Concussion 07/2015 Preceeded by seizure Constipation COPD (chronic obstructive pulmonary disease) ([facility]) Degenerative disc disease Depression Depression Diabetes mellitus ([facility]) Diabetes mellitus, type 2 ([facility]) diet controlled Diabetes type 2, controlled ([facility]) diet controlled Diarrhea Disorder of thyroid Diverticulosis [...] CORD STIMULATOR; Surgeon: Suly Hutchins MD; Location: [facility] MAIN OR OTHER SURGICAL HISTORY EPIDURAL STEROID [...] level: Not on file Occupational History Occupation: [employer] Social Needs Financial resource strain: Not on [...] file Gets together: Not on file Attends zoroastrianism service: Not on file Active member of [...] did refer her to an orthopedist in [place] where she randal es; so, we will [...] 09/18/2019 This document has been prepared with OnMy[employer] voice recognition system. The possibility of "s ound alike" career orientation teacher errors, and additions, or deletions may occur. [...] [place] | | | | | | [id number] | | | | | | | | +--------+---------+ + + + | 04/03/ | Office | Cardiology | Zuleyka Castillo DO | | | 2019 | Visit | | [address] | | | | | | [place] | | | | | | [address] | | | | | | | [...]
--- OUTSIDE RECORDS SUMMARY | ~2020-03-05 | XMS | Encounter Summary ---
Demographics + + + | Address | [address] | | | [place] [address] | [...] Providers + +------+ + | Care Service Architect Name | Role | Phone | [...] | | [address] [place] | [place] [address] | | | | | [place] | [phone] | | | | | [address] | | | | | | [phone] | | | +--------+ + + + [...] [place] | | | | | | [address] | | | | | | | | +--------+---------+ + + + | 04/03/ | Office | Cardiology | Zuleyka Castillo DO | | | 2020 | Visit | | [address] | | | | | | [place] | | | | | | [id number] | | | | | | | | +--------+---------+ + + + documented as of this encounter Visit Diagnoses Not on filedocumented in this encounter"
--- OUTSIDE RECORDS SUMMARY | ~2020-03-05 | XMS | Encounter Summary ---
Demographics + + + | Address | [address] | | | [place] [address] | + + + | Home Phone [...] Team Providers + +------+ + | Care Cut Lace Machine Operator Name | Role | Phone [...] + + | 10/15/ | Office | [facility] | Denys [place]y, | Spinal stenosis of | | 2019 | Visit | [facility] | DO [address] | lumbosacral region | | | | [address] [place] | (Primary Dx); Lumbar | | | | [address] [place] | [address] | region somatic | | | | [place], [place] | | dysfunction; | | | | [address] | | Intractable back | | | | [phone] | | pain; Chronic | | | [...] anterior chest wall ever y 72 hours. [place] 10/325 1 p.o. every 6 hours as [...] not limited to physical therapy, clinical care leader, acupuncture, massage therapy, and nutritional healt h [...] general activity) Total score: (Printable questionnaires in Bahraini ) Interpretation of Total Score: PEG scores are used to track changes over time. It should de crease after therapy has begun. Last 4 PEG Scores: No flowsheet data found. Opioid Risk Tool (ORT): Total Score Pulse: 77 Resp: 16 BP: 113/57 SpO2: 100 % (From Chronic Pain tab; printable questionnaires in Bahraini) Interpretation of Total Score: 0 to 3 [...] Asthma Asthma Back pain Cancer ([facility]) 2004 breast Cataract Cerebrovascular accident (CVA) ([facility]) no per pt Chronic back pain Chronic back pain Chronic constipation Concussion 07/2015 Preceeded by seizure Constipation COPD (chronic obstructive pulmonary disease) ([facility]) Degenerative disc disease Depression Depression Diabetes mellitus ([facility]) Diabetes mellitus, type 2 ([facility]) diet controlled Diabetes type 2, controlled ([facility]) diet controlled Diarrhea Disorder of thyroid [...] of lumbar spine 04/17/2014 Seizure ([facility]) one due to meds, two due [...] reflux disease Acute renal failure ([facility]) April 2013 Adverse effect of anesthesia hx hallucinations after anesthesia x 3 yrs ago. Anesthesia hallucinated after bladder repair Arthralgia Arthritis Asthma Asthma Back pain Cancer ([facility]) 2004 breast Cataract Cerebrovascular accident (CVA) ([facility]) no per pt Chronic back pain Chronic back pain Chronic constipation Concussion 07/2015 Preceeded by seizure Constipation COPD (chronic obstructive pulmonary disease) ([facility]) Degenerative disc disease Depression Depression Diabetes mellitus ([facility]) Diabetes mellitus, type 2 ([facility]) diet controlled Diabetes type 2, controlled ([facility]) diet controlled Diarrhea Disorder of thyroid [...] of lumbar spine 04/17/2014 Seizure ([facility]) one due to meds, two due [...] Procedure: KYPHOPLASTY; Surgeon: Alfredo Casillas DO; Location: [facility] OR; Service: Pa in Management; Laterality: N/A; L5 FRACTURE SURGERY ANKLE HERNIA REPAIR HYSTERECTOMY HYSTERECTOMY LAMINECTOMY N/A 08/03/2019 Procedure: LAMINOTOMY THORACIC / LUMBAR W/ PLACEMENT SPINAL CORD STIMULATOR; Surgeon: Suly Hutchins MD; Location: [facility] MAIN OR OTHER SURGICAL HISTORY EPIDURAL STEROID [...] = high risk) Daily Opioid Dose = [place] 10/325 1 p.o. every 4 hours. Discontinue [...] of the fentanyl patch inc reased her [place] to every 4 hours. Patient understands this [...] physical therapy, massage therapy, acupuncture, clinical care leader, along with niki mmended psychological counseling, either privately, or in group sessions offered by private care individuals, community services, or confucianist organizations. Appropriate referrals were made [...] weeks. This document has been created using Ener1 Recognition software and adaffix. The entry has been reviewed for content and accuracy, but there may still exist "sound alike" paster supervisor word errors and/or unintended additions and [...] [place] | | | | | | [address] | | | | | | | | +--------+---------+ + + + | 04/03/ | Office | Cardiology | Zuleyka Castillo DO | | 2019 | Visit | | [address] | | | | | | [place] | | | | | | [id number] | | | | | | | [...]
--- OUTSIDE RECORDS SUMMARY | ~2020-03-05 | XMS | Encounter Summary ---
Demographics + + + | Address | [address] | | | [place] [address] | + + + | Home Phone [...] Providers + +------+ + | Care Home Health Clinician Name | Role | Phone | + [...] + + | 12/19/ | Office | [facility] | Shay Dietz | Chronic low back | | 2013 | Visit | PH[address]SIATRY [address] | pain (Primary Dx); | | | | [address] | [address] [place], [place] | Facet arthritis of | | | | [place], [place] | [address] | lumbar region; Left | | | | [address] | | lumbar | | | | [phone] | | radiculopathy; | | | | [...] don't allow her to tr faisal to [place] very often. documented in this encounter Plan [...] [place] | | | | | | [id number] | | | | | | | | +--------+---------+ + + + | 04/03/ | Office | Cardiology | Zuleyka Castillo DO | | 2019 | Visit | | [address] | | | | | | [place] | | | | | | [id number] | | | | | | | [...]
--- OUTSIDE RECORDS SUMMARY | ~2020-03-05 | XMS | Encounter Summary ---
Demographics + + + | Address | [address] | | | [place] [address] | + + + | Home Phone [...] Providers + +------+ + | Care Mine Administrator Supervisor Name | Role | Phone | [...] 2013 | | [facility] | [place], [place] | | | | | [address] | [address] | | | | | [address] [place] | | | | | | [place], [address] [place] [address] | | | | | | [place], [place] | | | | | | [address] | | | | | | [phone] | | | +--------+ + + + [...]
--- OUTSIDE RECORDS SUMMARY | ~2020-03-05 | XMS | Encounter Summary ---
Demographics + + + | Address | [address] | | | [place] [address] | + + + | Home Phone [...] Providers + +------+ + | Care Call Circuit Worker Name | Role | Phone | [...] COURTNEY Andrews | | | | | [place], [place] | [place], [place] | | | | | [address] | [address] | | | | | [phone] | [phone] | | | | | | | [...] | + + + + + | [facility] DEPARTMENT OF | [address] | [place] [address] | | | PATHOLOGY | [address] | | | + + + + + | [facility] DEPARTMENT OF | [address] | [place] [address] | | | PATHOLOGY | [address] [...] + + + + | [facility] | [facility] | [place] [address] | | | PATHOLOGY | [address] | | | + + + + + | [facility] | [address] [place] [address] | [place] [address] | | | PATHOLOGY | [address] [...] | + + + + + | [facility] DEPARTMENT OF | [address] | [place] [address] | | | PATHOLOGY | [address] | | | + + + + + | [facility] DEPARTMENT OF | [address] | [place] [address] | | | PATHOLOGY | [address] [...] DEPARTMENT OF | [address] | [place] [address] | | | PATHOLOGY | [address] | | | + + + + + | [facility] DEPARTMENT OF | [address] | [place] [address] | | | PATHOLOGY | [address] [...] | + + + + + | [facility] DEPARTMENT OF | [address] | [place] [address] | | | PATHOLOGY | [address] | | | + + + + + | [facility] DEPARTMENT OF | [address] | [place] [address] | | | PATHOLOGY | [address] | | | + + + + + MAGNESIUM, PLASMA (06/30/2006 7:00 AM PDT) + +-------+ + + + | Component | Value | Ref Range | Performed | Pathologist | | | | | At | Signature | + +-------+ + + + | MAGNESIUM,P | 2.3 | 1.8 - 2.5 mg/dL | [facility] | | | LASMA | | [...] | + + + + + | [facility] DEPARTMENT OF | [address] | [place] [address] | | | PATHOLOGY | [address] | | | + + + + + | [facility] DEPARTMENT OF | [address] | [place] [address] | | | PATHOLOGY | [address] [...] DEPARTMENT OF | [address] | [place] [address] | | | PATHOLOGY | [address] | | | + + + + + | [facility] DEPARTMENT OF | [address] | [place] [address] | | | PATHOLOGY | [address] [...] DEPARTMENT OF | [address] | [place] [address] | | | PATHOLOGY | [address] | | | + + + + + | [facility] DEPARTMENT OF | [address] | [place] [address] | | | PATHOLOGY | [address] [...] | + + + + + | [facility] DEPARTMENT OF | [address] | [place] [address] | | | PATHOLOGY | [address] | | | + + + + + | [facility] DEPARTMENT OF | [address] | [place] [address] | | | PATHOLOGY | [address] [...] | + + + + + | [facility] DEPARTMENT OF | [address] | [place] [address] | | | PATHOLOGY | [address] | | | + + + + + | [facility] DEPARTMENT OF | [facility] [address] | [place] [address] | | | PATHOLOGY | [address] [...] DEPARTMENT OF | [address] | [place] [address] | | | PATHOLOGY | [address] | | | + + + + + | [facility] DEPARTMENT OF | [address] | [place] [address] | | | PATHOLOGY | [address] | | | + + + + + PHOSPHORUS QUANT, URINE (06/30/2006 4:45 AM PDT) + +-------+ + + + | Component | Value | Ref Range | Performed | Pathologist | | | | | At | Signature | + +-------+ + + + | PHOSPHORUS | 28.8 | mg/dL | [facility] | | | CONC UR | | [...] | + + + + + | [facility] DEPARTMENT OF | [address] | [place] [address] | | | PATHOLOGY | [address] | | | + + + + + | [facility] DEPARTMENT OF | [address] | [place] [address] | | | PATHOLOGY | [address] [...] + + + + | [facility] | [address] | [place] [address] | | | PATHOLOGY | [address] | | | + + + + + | [facility] | [address] | [place] [address] | | | PATHOLOGY | [address] [...] DEPARTMENT OF | [address] | [place] [address] | | | PATHOLOGY | [address] | | | + + + + + | [facility] DEPARTMENT OF | [address] | [place] [address] | | | PATHOLOGY | [address] [...] | + + + + + | [facility] DEPARTMENT | [address] | [place] [address] | | | PATHOLOGY | [address] | | | + + + + + | [facility] DEPARTMENT | [facility] | [place] [address] | | | PATHOLOGY | [address] [...] [facility] | [address] | [place], [place] | | | [facility] | | [address] | | + + + + + [...] + + + + | [facility] | [address] | [place] [address] | | | PATHOLOGY | [address] | | | + + + + + | [facility] | [address] [place] [address] [address] | [place] [address] | | | PATHOLOGY | [address] [...] | + + + + + | [facility] DEPARTMENT | [address] | [place] [address] | | | PATHOLOGY | [address] | | | + + + + + | [facility] | [address] | [place] [address] | | | PATHOLOGY | [address] [...] [facility] | [address] | [place], [place] | | | [facility] | | [address] | | + + + + + [...] | | | | | performed at [facility] | | | | | | [facility] | | | | | | Laboratory. | | | | + + + + + + + + | Specimen | + + | | + + + + + + + | Performing | Address | City/State/Zipcode | Phone Number | | Organization | | | | + + + + + | [facility] | [address] | [place] [address] | | | LAB-MICRO | | | [...] | + + + + + | [facility] DEPARTMENT OF | [address] | [place] [address] | | | PATHOLOGY | [address] | | | + + + + + | [facility] DEPARTMENT OF | [address] | [facility] [address] | | | PATHOLOGY | [address] [...] + | [facility] DEPARTMENT OF | [address] | [place] [address] | | | PATHOLOGY | [address] | | | + + + + + | [facility] DEPARTMENT OF | [address] | [place] [address] | | | PATHOLOGY | [address] [...] OF | [address] | [place] [address] | | | PATHOLOGY | [address] | | | + + + + + | [facility] DEPARTMENT OF | [address] | [place] [address] | | | PATHOLOGY | [address] | | | + + + + + LIVER SET (06/29/2006 6:55 AM PDT) + +---------+ + + + | Component | Value | Ref Range | Performed | Pathologist | | | | | At | Signature | + +---------+ + + + | ALBUMIN, | 3.1 (L) | 3.5 - 4.7 g/dL | [facility] | | | PLASMA | | [...] DEPARTMENT OF | [address] | [place] [address] | | | PATHOLOGY | [address] | | | + + + + + | [facility] DEPARTMENT OF | [address] | [place] [address] | | | PATHOLOGY | [address] | | | + + + + + MAGNESIUM, PLASMA (06/29/2006 6:55 AM PDT) + +-------+ + + + | Component | Value | Ref Range | Performed | Pathologist | | | | | At | Signature | + +-------+ + + + | MAGNESIUM,P | 2.1 | 1.8 - 2.5 mg/dL | [facility] | | | LASMA | | [...] + + + + | [facility] | [address] | [place] [address] | | | PATHOLOGY | [address] | | | + + + + + | [facility] | [address] | [place] [address] | | | PATHOLOGY | [address] [...] DEPARTMENT OF | [address] | [place] [address] | | | PATHOLOGY | [address] | | | + + + + + | [facility] DEPARTMENT OF | [address] | [place] [address] | | | PATHOLOGY | [address] [...] | + + + + + | [facility] DEPARTMENT OF | [address] | [place] [address] | | | PATHOLOGY | [address] | | | + + + + + | [facility] DEPARTMENT OF | [address] | [facility] [address] | | | PATHOLOGY | [address] [...] | + + + + + | [facility] DEPARTMENT OF | [address] | [place] [address] | | | PATHOLOGY | [address] | | | + + + + + | [facility] DEPARTMENT OF | [address] | [place] [address] | | | PATHOLOGY | [address] [...] + + | [facility] DEPARTMENT OF | [address] | [place] [address] | | | PATHOLOGY | [address] | | | + + + + + | [facility] DEPARTMENT OF | [address] | [place] [address] | | | PATHOLOGY | [address] | | | + + + + + MAGNESIUM, PLASMA (06/28/2006 7:40 PM PDT) + +-------+ + + + | Component | Value | Ref Range | Performed | Pathologist | | | | | At | Signature | + +-------+ + + + | MAGNESIUM,P | 2.2 | 1.8 - 2.5 mg/dL | [facility] | | | LASMA | | | [...] | + + + + + | [facility] DEPARTMENT | [facility] | [place] [address] | | | PATHOLOGY | [address] | | | + + + + + | [facility] | [address] [place] [address] | [place] [address] | | | PATHOLOGY | [address] [...] | + + + + + | [facility] DEPARTMENT OF | [address] | [place] [address] | | | PATHOLOGY | [address] | | | + + + + + | [facility] DEPARTMENT OF | [address] | [place] [address] | | | PATHOLOGY | [address] [...] | + + + + + | [facility] DEPARTMENT OF | [address] | [place] [address] | | | PATHOLOGY | [address] | | | + + + + + | [facility] DEPARTMENT OF | [address] | [place] [address] | | | PATHOLOGY | [address] [...] (H) | 65 - 110 mg/dL | [facility] | | | PLASMA | | [...] + + + + | [facility] | [facility] | [place] [address] | | | PATHOLOGY | [address] | | | + + + + + | [facility] DEPARTMENT OF | [address] | [place] [address] | | | PATHOLOGY | [address] [...] + | [facility] DEPARTMENT OF | [address] | [place] [address] | | | PATHOLOGY | [address] | | | + + + + + | [facility] DEPARTMENT OF | [address] | [place] [address] | | | PATHOLOGY | [address] [...] + + + + | [facility] | [address] | [place] [address] | | | PATHOLOGY | [address] | | | + + + + + | [facility] | [address] | [place] [address] | | | PATHOLOGY | [address] [...] | + + + + + | [facility] DEPARTMENT OF | [address] | [place] [address] | | | PATHOLOGY | [address] | | | + + + + + | [facility] DEPARTMENT OF | [address] | [place] [address] | | | PATHOLOGY | [address] [...] + + + + | [facility] | [facility] | [place] [address] | | | PATHOLOGY | [address] | | | + + + + + | [facility] | [facility] | [place] [address] | | | PATHOLOGY | [address] [...] | + + + + + | [facility] DEPARTMENT OF | [address] | [place] [address] | | | PATHOLOGY | [address] | | | + + + + + | [facility] DEPARTMENT OF | [address] | [place] [address] | | | PATHOLOGY | [address] [...] | + + + + + | [facility] DEPARTMENT OF | [address] | [place] [address] | | | PATHOLOGY | [address] | | | + + + + + | [facility] DEPARTMENT OF | [address] | [place] [address] | | | PATHOLOGY | [address] [...] + + + + | [facility] | [address] | [place] [address] | | | PATHOLOGY | [address] | | | + + + + + | [facility] | [address] | [place] [address] | | | PATHOLOGY | [address] [...] + + + | Test performed at [facility] | | + + + + + + + + | Performing | Address | City/State/Zipcode | Phone Number | | Organization | | | | + + + + + | [facility] | [address] | [place] [address] | | | LABORATORY | | | [...] + + + | Test performed at [facility] | | + + + + + + + + | Performing | Address | City/State/Zipcode | Phone Number | | Organization | | | | + + + + + | [facility] | [address] [facility] | [place] [address] | | | LABORATORY | | | | + + + + + IOD-ORGANIC BASE CONFIRM (06/27/2006 11:55 AM PDT) + + | Specimen | + + | | + + + + + | Narrative | Performed At | + + + | Test performed at [facility] | [facility] | | | DEPARTMENT OF | | | PATHOLOGY | + + + + + + + + | Performing | Address | City/State/Zipcode | Phone Number | | Organization | | | | + + + + + | [facility] | [address] | [place] [address] | | | PATHOLOGY | [address] | | | + + + + + | [facility] DEPARTMENT OF | [address] | [place] [address] | | | PATHOLOGY | [address] [...] | | | | | performed at [facility] | | | | | | [facility] | | | | | | Laboratory. | | | | + + + + + + + + | Specimen | + + | | + + + + + + + | Performing | Address | City/State/Zipcode | Phone Number | | Organization | | | | + + + + + | [facility] | [address] [facility] [facility] | [place] [address] | | | LAB-MICRO | | | [...] | uIU/ml | | | | | [facility] | | | | | | Laboratories. | | | | + + + + + + + + | Specimen | + + | | + + + + + + + | Performing | Address | City/State/Zipcode | Phone Number | | Organization | | | | + + + + + | [facility] | [address] | [place] [address] | | | LABORATORY | | | [...] + + + + | [facility] | [facility] | [place] [address] | | | PATHOLOGY | [address] | | | + + + + + | [facility] DEPARTMENT OF | [facility] | [place] [address] | | | PATHOLOGY | [address] [...] + + + + | [facility] | [address] | [place] [address] | | | PATHOLOGY | [address] | | | + + + + + | [facility] | [address] | [place] [address] | | | PATHOLOGY | [address] [...] | + + + + + | [facility] DEPARTMENT OF | [address] | [place] [address] | | | PATHOLOGY | [address] | | | + + + + + | [facility] DEPARTMENT OF | [address] | [place] [address] | | | PATHOLOGY | [address] [...] | + + + + + | [facility] DEPARTMENT OF | [address] | [place] [address] | | | PATHOLOGY | [address] | | | + + + + + | [facility] DEPARTMENT OF | [facility] | [place] [address] | | | PATHOLOGY | [address] [...] + + + + | [facility] | [address] | [place] [address] | | | PATHOLOGY | [address] | | | + + + + + | [facility] | [address] | [place] [address] | | | PATHOLOGY | [address] [...] | + + + + + | [facility] DEPARTMENT OF | [address] | [place] [address] | | | PATHOLOGY | [address] | | | + + + + + | [facility] DEPARTMENT OF | [address] | [place] [address] | | | PATHOLOGY | [address] [...] + + | [facility] DEPARTMENT OF | [facility] | [place] [address] | | | PATHOLOGY | [address] | | | + + + + + | [facility] DEPARTMENT OF | [facility] [address] | [place] [address] | | | PATHOLOGY | [address] [...] | | | | | performed at [facility] | | | | | | [facility] | | | | | | Laboratory. | | | | + + + + + + + + | Specimen | + + | | + + + + + + + | Performing | Address | City/State/Zipcode | Phone Number | | Organization | | | | + + + + + | [facility] | [address] | [place] [address] | | | LAB-MICRO | | | [...] | | | | | performed at [facility] | | | | | | [facility] | | | | | | Laboratory. | | | | + + + + + + + + | Specimen | + + | | + + + + + + + | Performing | Address | City/State/Zipcode | Phone Number | | Organization | | | | + + + + + | [facility] | [address] | [place] [address] | | | LAB-MICRO | | | [...] + + | [facility] DEPARTMENT OF | [address] | [place] [address] | | | PATHOLOGY | [address] | | | + + + + + | [facility] DEPARTMENT OF | [address] | [place] [address] | | | PATHOLOGY | [address] [...] + + + + + | [facility] | [address] | [place] [address] | | | LABORATORY | | | [...] | | | | QUAL, SERUM | [facility] | | | | | | Laboratories. | | | | + + + + + + + + | Specimen | + + | | + + + + + + + | Performing | Address | City/State/Zipcode | Phone Number | | Organization | | | | + + + + + | [facility] | [address] | [place] [address] | | | LABORATORY | | | [...] + + + | [facility] | [address] | [place] [address] | | | LABORATORY | | | [...] | | | | | performed at [facility] | | | | | | [facility] | | | | | | Laboratory. | | | | + + + + + + + + | Specimen | + + | | + + + + + + + | Performing | Address | City/State/Zipcode | Phone Number | | Organization | | | | + + + + + | [facility] | [address] | [place] [address] | | | LAB-MICRO | | | [...] | + + + + + | [facility] DEPARTMENT | [address] | [place] [address] | | | PATHOLOGY | [address] | | | + + + + + | [facility] | [address] [place] [address] | [place] [address] | | | PATHOLOGY | [address] [...] DEPARTMENT OF | [address] | [place] [address] | | | PATHOLOGY | [address] | | | + + + + + | [facility] DEPARTMENT OF | [address] | [place] [address] | | | PATHOLOGY | [address] [...] + + + + | [facility] | [address] | [place] [address] | | | PATHOLOGY | [address] | | | + + + + + | [facility] | [address] | [place] [address] | | | PATHOLOGY | [address] [...] | + + + + + | [facility] DEPARTMENT OF | [address] | [place] [address] | | | PATHOLOGY | [address] | | | + + + + + | [facility] DEPARTMENT OF | [address] | [place] [address] | | | PATHOLOGY | [address] [...] (H)Comment: | 0.90 - 1.20 INR | [facility] | | | | PT INR [...] + + + + | [facility] | [address] | [place] [address] | | | PATHOLOGY | [address] | | | + + + + + | [facility] DEPARTMENT OF | [address] | [place] [address] | | | PATHOLOGY | [address] [...] DEPARTMENT OF | [address] | [place] [address] | | | PATHOLOGY | [address] | | | + + + + + | [facility] DEPARTMENT OF | [address] | [place] [address] | | | PATHOLOGY | [address] [...] | + + + + + | [facility] DEPARTMENT OF | [facility] | [place] [address] | | | PATHOLOGY | [address] | | | + + + + + | [facility] DEPARTMENT OF | [facility] | [place] [address] | | | PATHOLOGY | [address] [...] | + + + + + | [facility] DEPARTMENT OF | [address] | [place] [address] | | | PATHOLOGY | [address] | | | + + + + + | [facility] DEPARTMENT OF | [address] | [place] [address] | | | PATHOLOGY | [address] [...] + + + + | [facility] | [address] | [place] [address] | | | PATHOLOGY | [address] | | | + + + + + | [facility] | [address] | [place] [address] | | | PATHOLOGY | [address] [...] | | | | | | the [facility] LabManual: | | | | | | [email or web address] | | | | | [email or web address] [...] | + + + + + | [facility] DEPARTMENT | [address] | [place] [address] | | | PATHOLOGY | [address] | | | + + + + + | [facility] | [address] | [place] [address] | | | PATHOLOGY | [address] [...] | + + + + + | [facility] DEPARTMENT OF | [address] | [place] [address] | | | PATHOLOGY | [address] | | | + + + + + | [facility] DEPARTMENT OF | [address] | [place] [address] | | | PATHOLOGY | [address] [...] + + + + | [facility] | [facility] | [place] [address] | | | PATHOLOGY | [address] | | | + + + + + | [facility] DEPARTMENT OF | [address] | [place] [address] | | | PATHOLOGY | [address] [...] + + + + | [facility] | [address] | [place] [address] | | | PATHOLOGY | [address] | | | + + + + + | [facility] | [address] | [place] [address] | | | PATHOLOGY | [address] [...] | + + + + + | [facility] DEPARTMENT OF | [address] | [place] [address] | | | PATHOLOGY | [address] | | | + + + + + | [facility] DEPARTMENT | [address] | [place] [address] | | | PATHOLOGY | [address] [...] + + + + | [facility] | [facility] | [place] [address] | | | PATHOLOGY | [address] | | | + + + + + | [facility] | [facility] [address] | [place] [address] | | | PATHOLOGY | [address] [...] | + + + + + | [facility] DEPARTMENT OF | [address] | [place] [address] | | | PATHOLOGY | [address] | | | + + + + + | [facility] DEPARTMENT OF | [address] | [place] [address] | | | PATHOLOGY | [address] [...] + + + + | [facility] | [facility] | [place] [address] | | | PATHOLOGY | [address] | | | + + + + + | [facility] DEPARTMENT OF | [facility] | [place] [address] | | | PATHOLOGY | [address] [...] DEPARTMENT OF | [address] | [place] [address] | | | PATHOLOGY | [address] | | | + + + + + | [facility] DEPARTMENT OF | [address] [facility] | [place] [address] | | | PATHOLOGY | [address] [...] | + + + + + | [facility] DEPARTMENT OF | [address] | [place] [address] | | | PATHOLOGY | [address] | | | + + + + + | [facility] DEPARTMENT OF | [address] | [place] [address] | | | PATHOLOGY | [address] [...] | + + + + + | [facility] DEPARTMENT OF | [address] | [place] [address] | | | PATHOLOGY | [address] | | | + + + + + | [facility] DEPARTMENT OF | [address] | [place] [address] | | | PATHOLOGY | [address] [...] | + + + + + | [facility] DEPARTMENT OF | [address] | [place] [address] | | | PATHOLOGY | [address] | | | + + + + + | [facility] DEPARTMENT OF | [address] | [place] [address] | | | PATHOLOGY | [address] [...] + + + + | [facility] | [address] [facility] [address] | [place] [address] | | | PATHOLOGY | [address] | | | + + + + + | [facility] | [address] [facility] [address] | [place] [address] | | | PATHOLOGY | [address] | | | + + + + + documented in this encounter Visit Diagnoses Not on filedocumented in this encounter"
--- OUTSIDE RECORDS SUMMARY | ~2020-03-05 | XMS | Encounter Summary ---
Demographics + + + | Address | [address] | | | [place] [address] | + + + | Home Phone [...] Team Providers + +------+ + | Care Landscaping Specialist Name | Role | Phone | [...] Thoracic or | [place], | [address] | | | | | lumbosacral | Shay Mukherjee MD | [place], | | | | | neuritis or | [address] | [place] | | | | | | ST [place] | [address] | | | | | radiculitis, | [place], [place] | Phone: | | | | | unspecified | [address] | [phone] | | | | | Procedures | Phone: | Fax: | | | | | AR INJECT | [phone] | [phone] | | | | | ANES/STEROID | Fax: | | | | | | FORAMEN | [phone] | | | | | | LUMBAR/SACRA [...] + + | 04/18/ | Hospital | [facility] | [place], | Left lumbar | | 2013 | Encounter | MED CTR XRAY [address] | [address] | radiculopathy; | | | | [address] [place] | [address], [address] | Chronic low back | | | | [place] [address] | [place] [address] | pain; Facet | | | | [phone] | [phone] | arthritis of lumbar | | | | | | region; Foraminal | | | | | Manager E[employer], [facility] | stenosis of lumbar [...] [place] | | | | | | [address] | | | | | | | | +--------+---------+ + + + | 04/03/ | Office | Cardiology | Zuleyka Castillo DO | | 2019 | Visit | | [address] | | | | | | [place], [place] | | | | | | [address] | | | | | | | [...] ICD-9 Code 724.4 Kori Harshal | [facility] | | Joanne presents to the fluoroscopy suite for a [facility] | | fluoroscopically-guided left L5-S1 transforaminal [...] ST. | [address] | [place] | [phone] | | [facility] | | [address] | | | - IMAGING | | [...] | | (Comment | | Intramuscular, ONCE, [facility] 04/18/14 | | PM PDT | [...]
--- OUTSIDE RECORDS SUMMARY | ~2020-03-05 | XMS | Encounter Summary ---
Demographics + + + | Address | [address] | | | [place] [address] | + + + | Home Phone [...] Team Providers + +------+ + | Care Finished Cigar Maker Name | Role | Phone | + +------+ + | Miquel Calhoun MD | PCP | | + +------+ + Encounter Details +--------+ + + + + | Date | Type | Department | Care Team | Description | +--------+ + + + + | 09/17/ | Telephone | [facility] | Khushbu Cortez, | | | 2012 | | [facility] | [place], [place] | | | | | [address] | [address] | | | | | [address] | | | | | | Riddhi, [address] [place] [address] | | | | | | [place], [place] | | | | | | [address] | | | | | | [phone] | | | +--------+ + + + [...]
--- OUTSIDE RECORDS SUMMARY | ~2020-03-05 | XMS | Encounter Summary ---
Demographics + + + | Address | [address] | | | [place] [address] | + + + | Home Phone [...] Team Providers + +------+ + | Care Farmer General Name | Role | Phone | + +------+ + | Wendi Aiken | PCP | | + +------+ + Encounter Details +--------+ + + + + | Date | Type | Department | Care Team | Description | +--------+ + + + + | 05/10/ | Imaging | [facility] | Provider, | | | 2018 | Exam | MED CTR EXTERNAL | MD [address] | | | | | IMAGING [address] | Vasquez VALDEZ | | | | | [facility] | [place] [address] | | | | | [place] [address] | | | | | | [phone] | | | +--------+ + + + [...] [place] | | | | | | [address] | | | | | | | | +--------+---------+ + + + | 04/03/ | Office | Cardiology | Zuleyka Castillo DO | | | 2019 | Visit | | [address] | | | | | | [place] | | | | | | [address] | | | | | | | [...]
--- OUTSIDE RECORDS SUMMARY | ~2020-03-05 | XMS | Encounter Summary ---
Demographics + + + | Address | [address] | | | [place] [address] | + + + | Home Phone [...] Providers + +------+ + | Care Mold Closer Name | Role | Phone | [...] + + | 11/19/ | Telephone | [facility] | Denys Sibley, | Pharmacy / Med | | 2020 | | [facility] | DO [address] | (question) | | | | [address] [place], [place] | | | | | [address] | [address] | | | | | [place], [place] | | | | | | [address] | | | | | | [phone] | | | +--------+ + + + [...] [place] | | | | | | [address] | | | | | | | | +--------+---------+ + + + | 04/03/ | Office | Cardiology | Zuleyka Castillo DO | | | 2019 | Visit | | [address] | | | | | | [place] | | | | | | [address] | | | | | | | | +--------+---------+ + + + documented as of this encounter Visit Diagnoses Not on filedocumented in this encounter"
--- OUTSIDE RECORDS SUMMARY | ~2020-03-05 | XMS | Encounter Summary ---
Demographics + + + | Address | [address] | | | [place] [address] | + + + | Home Phone [...] Team Providers + +------+ + | Care Product Promoter Sales Person Name | Role | Phone | [...] | | | | | region | [address] | | | | | | | Phone: | | | | | | | [phone] | | | | | | | Fax: | | | | | | | [phone] | | +--------+ + + + + + Reason for Visit + + + | Reason | Comments | + + + | Follow-up | MRI f/u | + + + Encounter Details +--------+---------+ + + + | Date | Type | Department | Care Team | Description | +--------+---------+ + + + | 09/10/ | Office | [facility] | Darrin Hoyos | Scoliosis of lumbar | | 2013 | Visit | NEUROSURGERY [address] | [address] | spine (Primary Dx); | | | | [address] | [address] | Facet arthritis of | | | | [place], [place] | [place] [address] | lumbar region | | | | [address] | [phone] | | | | | [phone] | | | +--------+---------+ + + + [...] Vang [address] [facility], [address] [place], [place] [address] FAX: NEUROSURGERY HISTORY AND PHYSICAL EXAMINATION CHIEF [...] a also s een a surgeon in [facility] he stated she did not need to have surgery according to her repo rt. She also reports she had a recent MRI in the [facility] which I do not have [...] apparent deficits with short or jail memory. CRANIAL NERVES: II: Acuity is intact. [...] Intrinsics 5 4 Ulnar Intrinsics 5 4 Ict Support Engineer Strength 5 4 Hip Flexion 5 [...] [place] | | | | | | [address] | | | | | | | | +--------+---------+ + + + | 04/03/ | Office | Cardiology | Castillo, Zuleyka, DO | | | 2020 | Visit | | [address] | | | | | | [place] | | | | | | [address] | | | | | | | [...]
--- OUTSIDE RECORDS SUMMARY | ~2020-03-05 | XMS | Encounter Summary ---
Demographics + + + | Address | [address] | | | [place] [address] | + + + | Home Phone [...] Providers + +------+ + | Care Supervisor Detasseling Crew Name | Role | Phone | + +------+ + PCP | Unavailable | + +------+ + Encounter Details +--------+ + + + + | Date | Type | Department | Care Team | Description | +--------+ + + + + | 09/07/ | Hospital | [facility] | | | | 1998 - | Encounter | MED CTR CANCER | | | | | | [address] | | | | 10/30/ | | [place] | | | | 1998 | | [address] | | | | | | [phone] | | | +--------+ + + + [...] [place] | | | | | | [address] | | | | | | | | +--------+---------+ + + + | 04/03/ | Office | Cardiology | Zuleyka Castillo DO | | | 2020 | Visit | | [address] | | | | | | [place] | | | | | | [address] | | | | | | | | +--------+---------+ + + + documented as of this encounter Visit Diagnoses Not on filedocumented in this encounter"
--- OUTSIDE RECORDS SUMMARY | ~2020-03-05 | XMS | Encounter Summary ---
Demographics + + + | Address | [address] | | | [place] [address] | + + + | Home Phone [...] Team Providers + +------+ + | Care Grounds Maintenance Worker Name | Role | Phone | [...] + + | 08/31/ | Telephone | [facility] | Denys Sibley, | Back Pain (Severe | | 2019 | | [facility]ENCE [facility]ENTER | DO [address] | pain) | | | | [address] | [address] [place], [place] | | | | | [address] | [address] | | | | | [place], [place] | | | | | | [address] | | | | | | [phone] | | | +--------+ + + + [...] [place] | | | | | | [address] | | | | | | | | +--------+---------+ + + + | 04/03/ | Office | Cardiology | Zuleyka Castillo DO | | | 2020 | Visit | | [address] | | | | | | [place] | | | | | | [address] | | | | | | | | +--------+---------+ + + + documented as of this encounter Visit Diagnoses Not on filedocumented in this encounter"
--- OUTSIDE RECORDS SUMMARY | ~2020-03-05 | XMS | Encounter Summary ---
Demographics + + + | Address | [address] | | | [place] [address] | + + + | Home Phone [...] Providers + +------+ + | Care Process Camera Operator Name | Role | Phone | + +------+ + | Miquel Calhoun MD | PCP | | + +------+ + Encounter Details +--------+ + + + + | Date | Type | Department | Care Team | Description | +--------+ + + + + | 10/18/ | Hospital | [facility] | Shay Dietz | | | 2012 | Encounter | MED CTR XRAY [address] | T, [address] | | | | | [place] | [facility] [place] | | | | | [place] [address] | [address] | | | | | [phone] | | | +--------+ + + + [...] [place] | | | | | | [id number] | | | | | | | | +--------+---------+ + + + | 04/03/ | Office | Cardiology | Zuleyka Castillo DO | | | 2019 | Visit | | [address] | | | | | | [place] | | | | | | [address] | | | | | | | [...] At | + + + | [facility] | [place] | | Department [address] | [facility] | | [ rep [address]] [ rep [facility] | | st zip] Signed | - IMAGING | | | | | Patient Name: KORI HARMON | | | Physician: OMID : 1945 Age: 68 Sex: F Unit | | | #: [id number] Exam Date: 10/18/13 Location: | | | IMG.INV Report #: [id number] Page: | | | %(RAD)RES..mtdd.print.filter("pg") of %(RAD) | | | RES..mtdd.print.filter("tpg") | | | | | | Accession Number: [id number] | | | LUMBAR MEDIAL BRANCH BLOCKS, [...] Transcribed Date/Time: | | | 10/18/2013 19:14 Agency Sales Representative: | | | <<Signature on File>> | | | Shay Mukherjee | | | MD J Luis10/22/13 0756 <Electronically signed by Shay Mukherjee | | | J Luis SALGADO> Shay Dietz MD 10/18/13 1706 | | | Agency Sales Representative: [employer] Zjuhsogsvdncs71/19/13 7593 | | | PROVIDER,UNKNOWN | | + + + + + + + + | Performing | Address | City/State/Zipcode | Phone Number | | Organization | | | | + + + + + | [facility] | [address] | [place] | [phone] | | [facility] | | [address] | | | - IMAGING | | | | + + + + + documented in this encounter Visit Diagnoses Not on filedocumented in this encounter
--- OUTSIDE RECORDS SUMMARY | ~2020-03-05 | XMS | Encounter Summary ---
Demographics + + + | Address | [address] | | | [place] [address] | + + + | Home Phone [...] Providers + +------+ + | Care Research Mechanic Name | Role | Phone | [...] | | [address] | [place] [address] | Foraminal stenosis | | | | [place], [place] | [phone] | of lumbar region - | | | | [address] | | left L5-S1; DDD | | | | [phone] | | (degenerative disc | | | [...] from t manolo phillips. Sj Valdes M.D. [address] [place] [address], [address] [place] [address] FAX: NEUROSURGERY HISTORY AND PHYSICAL EXAMINATION CHIEF [...] has no apparent deficits with short or prison memory. MOTOR EXAM: (5 IS NORMAL) * Indicates pain limited MUSCLE/ MOVEMENT: RIGHT LEFT Deltoids 5 4+ Biceps 5 5 Triceps 5 5 Wrist Flexion 5 5 Wrist Extension 5 5 Median Intrinsics 5 4 Ulnar Intrinsics 5 4 Adjunct Nursing Faculty Strength 5 4 Hip Flexion 5 4 [...] [place] | | | | | | [address] | | | | | | | | +--------+---------+ + + + | 04/03/ | Office | Cardiology | Zuleyka Castillo DO | | | 2019 | Visit | | [address] | | | | | | [place] | | | | | | [address] | | | | | | | [...]
--- OUTSIDE RECORDS SUMMARY | ~2020-03-05 | XMS | Encounter Summary ---
Demographics + + + | Address | [address] | | | [place] [address] | + + + | Home Phone [...] Providers + +------+ + | Care Auto Body Repairer Name | Role | Phone | [...] | Cervical | Darrin | [address] | | | | | radiculopath | [address] | [place], | | | | | y | [address] | [place] | | | | | Myelopathy | [address] | [address] | | | | | (HCC) | [place], [place] | Phone: | | | | | Procedures | [address] | [phone] | | | | | MRI Cervical | Phone: | Fax: | | | | | Spine wo | [phone] | [phone] | | | | | Contrast | Fax: | | | | | | | [phone] | | +--------+--------+ + + + + [...] | | Services | | Foraminal | Shiracz, | Darrin | | | Required | | stenosis of | Yan[place], | [address] | | | | | lumbar | [address] | [address] | | | | | region | [address], | [address] [place], | | | | | Chronic low | [address] | [place] [address] | | | | | back pain | [place] | Phone: | | | | | Facet | [address] | [phone] | | | | | arthritis of | Phone: | Fax: | | | | | lumbar | [phone] | [phone] | | | | | region | Fax: | | | | | | Scoliosis of | [phone] | | | | | | lumbar | | | | | | | spine Acute | | | | | | | renal | | | | | | | failure | | | | | | | (HCC) | | | | | | | Procedures | | | | | | | SC OFFICE | | | | | | [...] + + | 07/26/ | Office | [facility] | West, Darrin | 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 After these tests have been completed we w ill see you back in review the resultsElectronically signed by PEE Somers at 11:54 AM PDT documented in this encounter Progress Notes Darrin Hoyos PA - 07/26/2014 11:13 AM PDTFormatting of this note might be differen t from the original. PEE Vang [address] [facility], [address] [place], [place] [address] FAX: NEUROSURGERY HISTORY AND PHYSICAL EXAMINATION CHIEF [...] ently a also seen a surgeon in [facility] he stated she did not need to have surgery pawel dave to her report. She also reports she had a recent MRI in the [facility] which I do not marcos ve [...] Intrinsics 5 4 Ulnar Intrinsics 5 4 Stab Setter And Driller Strength 5 4 Hip Flexion 5 4 [...] Rubio today with the majority of chet quiroz spent counselling the patient on her diagnosis, [...] [place] | | | | | | [id number] | | | | | | | | +--------+---------+ + + + | 04/03/ | Office | Cardiology | Zuleyka Castillo DO | | 2019 | Visit | | [address] | | | | | | [place] | | | | | | [id number] | | | | | | | [...]
--- OUTSIDE RECORDS SUMMARY | ~2020-03-05 | XMS | Encounter Summary ---
Demographics + + + | Address | [address] | | | [place] [address] | + + + | Home Phone [...] Team Providers + +------+ + | Care Structural Engineering Project Manager Name | Role | Phone | + +------+ + PCP | Unavailable | + +------+ + Encounter Details +--------+ + + + + | Date | Type | Department | Care Team | Description | +--------+ + + + + | 06/26/ | Respiratory | | Other, Faculty | | | 2006 | Therapy | | [phone] | | +--------+ + + + + [...] Hassan, | | | | | | FRAMEMAN | | | | + + + [...] RADHA ALONZO | [address] | [place], [place] | | | DIAGNOSTICS - | [place] [address] | [address] | | | PULMONARY FUNCTION | | | | + + + + + documented in this encounter Visit Diagnoses Not on filedocumented in this encounter"
--- OUTSIDE RECORDS SUMMARY | ~2020-03-05 | XMS | Encounter Summary ---
Demographics + + + | Address | [address] | | | [place] [address] | + + + | Home Phone [...] Team Providers + +------+ + | Care Bindery Leadperson Name | Role | Phone | + +------+ + | Wendi Aiken | PCP | | + +------+ + Encounter Details +--------+ + + + + | Date | Type | Department | Care Team | Description | +--------+ + + + + | 06/13/ | Hospital | [facility] | SonjaAlfredo DO | Closed compression | | 2018 | Encounter | MEDICAL CENTER | [address] | fracture of fifth | | | | CLINICAL DECISION | [place] [address] | lumbar vertebra, | | | | [address] | [phone] | initial encounter | | | | [place], [place] | | ([facility]) | | | | [address] | | | | | | [phone] | | | +--------+ + + + [...] 06/13/181408 Date of Service: 06/13/181408 Status: Signed Welding Process Engineer: Cristiane Araujo RN (Registered Nurse) Pt discharge [...] Notes by Kiya Dietrich RN at 06/13/18 1000 Author: Kiya Dietrich RN Service: General Surgery Author Type: Registered Nurse Filed: 06/13/18 1008 Date of Service: 06/13/18 100 Status: Signed Welding Process Engineer: Kiya Dietrich RN (Registered Nurse) Report given [...] [place] | | | | | | [address] | | | | | | | | +--------+---------+ + + + | 04/03/ | Office | Cardiology | Zuleyka Castillo DO | | | 2019 | Visit | | [address] | | | | | | [place] | | | | | | [address] | | | | | | | [...] | | | Fingerstick | performed at [facility];[address] | | LAB | | | | Rosenda Donnelly;[place] | | | | | | [address] | | | | + + + [...]
--- OUTSIDE RECORDS SUMMARY | ~2020-03-05 | XMS | Encounter Summary ---
Demographics + + + | Address | [address] | | | [place] [address] | + + + | Home Phone [...] Providers + +------+ + | Care Supervisor Of Communications Name | Role | Phone | + +------+ + | Miquel Calhoun MD | PCP | | + +------+ + Encounter Details +--------+ + + + + | Date | Type | Department | Care Team | Description | +--------+ + + + + | 10/18/ | Telephone | [facility] | Khushbu Cortez, | | | 2012 | | [facility] | [place], [place] | | | | | [address] | [address] | | | | | [address] | | | | | | R[place], [address] [place] [address] | | | | | | [place], [place] | | | | | | [address] | | | | | | [phone] | | | +--------+ + + + [...]
--- OUTSIDE RECORDS SUMMARY | ~2020-03-05 | XMS | Encounter Summary ---
Demographics + + + | Address | [address] | | | [place] [address] | + + + | Home Phone [...] Providers + +------+ + | Care Poultry Farmworker Name | Role | Phone | + [...] | Emergency | [facility] | Jean-Paul Flowers, | Chronic hip pain, | | 2014 | | MED CTR EMERGENCY | MD [address] | right (Primary Dx); | | | | CENTER [address] | [place] | Chronic low back | | | | [place] | [address] | pain; Frequent falls | | | | [address] | | | | | | [phone] | | | +--------+ + + + [...] Nugent MD - 04/28/2015Follow-up with Isaura from [facility] social work for assistance with home [...] [place] | | | | | | [address] | | | | | | | | +--------+---------+ + + + | 04/03/ | Office | Cardiology | Zuleyka Castillo DO | | | 2019 | Visit | | [address] | | | | | | [place] | | | | | | [address] | | | | | | | [...] Emergency -Right Hip to Toe 04/23/2015 10:50 [facility] | | | [facility] 04/13/2015 | | | 07:46 [facility] | | | -Other chronic pain [...] | not stated as uncontrolled 04/10/2015 14:37 [facility] | | | Hospital Emergency -Surgical or [...] | | | | -Dehydration 04/09/2015 10:50 [facility] | | | Urgent Care -History of [...] as uncontrolled | | | 04/07/2015 07:45 [facility] | | | Urgent Care -Unspecified acquired [...] in stool 03/26/2015 | | | 07:15 [facility] | | | -Diabetes mellitus without [...] other | | | medications 03/07/2015 10:45 [facility] | | | Urgent Care -Loss of [...] of weight | | | 02/17/2015 09:15 [facility] | | | Urgent Care -Dysuria | [...] in | | | breast 02/14/2015 09:50 [facility] | | | Urgent Care -Other chronic [...] chronic pain | | | 02/11/2015 09:00 [facility] | | | Urgent Care -Loss of [...] ------ --------- 1 0 | | | [facility] 2 | | | 0 [facility] 15 | | | 0 [facility] 18 | | | 0 Total Note: Visits indicate total | | | known visits. Medicaid [place] Dx are the number of primary diagnoses on | | | the [facility]'s non-emergent dx list. | | | | [...]
--- OUTSIDE RECORDS SUMMARY | ~2020-03-05 | XMS | Encounter Summary ---
Demographics + + + | Address | [address] | | | [place] [address] | + + + | Home Phone [...] Team Providers + +------+ + | Care Counter Molder Name | Role | Phone | [...] low | J Luis, | [address] | | | | | back pain | Shay Mukherjee MD | [place], | | | | | Procedures | [address] | [place] | | | | | MRI Lumbar | [place] | [address] | | | | | Spine wo | [place], [place] | Phone: | | | | | Contrast | [address] | [phone] | | | | | | Phone: | Fax: | | | | | | [phone] | [phone] | | | | | | Fax: | | | | | | | [phone] | | +--------+--------+ + + + + [...] + + | 08/16/ | Office | [facility] | Shay Dietz | Chronic low back | | 2012 | Visit | PHYSIATRY [address] | TMD [address] | pain (Primary Dx); | | | | [address] | ST [place], [place] | DISC DISEASE, | | | | [place], [place] | [address] | LUMBAR; Facet | | | | [address] | | arthritis of lumbar | | | | [phone] | | region | +--------+---------+ + + [...] [place] | | | | | | [address] | | | | | | | | +--------+---------+ + + + | 04/03/ | Office | Cardiology | Zuleyka Castillo DO | | | 2019 | Visit | | [address] | | | | | | [place] | | | | | | [address] | | | | | | | [...]
--- OUTSIDE RECORDS SUMMARY | ~2020-03-05 | XMS | Clinical Summary ---
Demographics + + + | Address | [address] | | | [place] [address] | + + + | Home Phone [...] Team Providers + +------+ + | Care Bee Robber Name | Role | Phone | + +------+ + | Oxana Nye | PCP | | + +------+ + Source Comments RAD[facility] is [facility] both [facility] and [facility] Allergies + + + + + + [...] | | | | | | | [address] | | + +--------+ +--------+ + +--------+ | [employer] | AARP | [phone] | 07/01/20 | [phone] | [address] | Indemn | | RETIRED PEOPLE | | | 12-Pre | 9 | [id number] | ity | | | | | sent | | [place] | | | | | | | | [address] | | + +--------+ +--------+ + +--------+ [...] jose | | | 8 (Home) | [address] | + +--------+ +--------+ + +
--- OUTSIDE RECORDS SUMMARY | ~2020-03-05 | XMS | Encounter Summary ---
Demographics + + + | Address | [address] | | | [place] [address] | + + + | Home Phone [...] Team Providers + +------+ + | Care Cottrell Blower Name | Role | Phone | + [...]
--- OUTSIDE RECORDS SUMMARY | ~2020-03-05 | XMS | Encounter Summary ---
Demographics + + + | Address | [address] | | | [place] [address] | + + + | Home Phone [...] Providers + +------+ + | Care Software Build Engineer Name | Role | Phone | [...] + + | 08/05/ | Emergency | [facility] | Dion Richardson | Chronic low back | | 2014 | | [facility] | Laz Richards MD | pain (Primary Dx); | | | | CENTER [address] | [address] | Weakness | | | | [place] | [place] | | | | | [address] | [address] | | | | | [phone] | | | +--------+ + + + [...] [place] | | | | | | [address] | | | | | | | | +--------+---------+ + + + | 04/03/ | Office | Cardiology | Zuleyka Castillo DO | | | 2020 | Visit | | [address] | | | | | | [place] | | | | | | [address] | | | | | | | [...] [facility] | | | | | | ST. [...] + | [facility] | [address] | [place], [place] | [phone] | | [facility] | | [address] | | | - LABORATORY | | | | + + + + + | [facility] | [address] | [place], [place] | | | [facility] | | [address], [facility] | | | - LABORATORY | | | | + + + + + Lipase (08/05/2014 2:36 PM PDT) + +-------+ + + + | Component | Value | Ref Range | Performed | Pathologist | | | | | At | Signature | + +-------+ + + + | Lipase | 22 | 0 - 60 U/L | [facility] | | | | | | [facility] [address] | [place] | [phone] | | [facility] | | [address] | | | - LABORATORY | | | | + + + + + | [facility] | [address] | [place], [place] | | | [facility] | | [address], [facility] | | | - LABORATORY [...] | | | | | mmol/L | [facility] | | | | | | MEDICAL | | | | | | CENTER - | | | | | | LABORATORY | | + + + + + + | K | 3.6 | 3.5 - 5.1 | [facility] | | | | | mmol/L | [facility] | | | | [...] [facility] | | [facility] | | | | | | MEDICAL | | | | | | CENTER - | | | | | | LABORATORY | | + + + + + + | BUN | 19 (H) | 7 - 18 mg/dL | [facility] | | | | | | [facility] | | | | | | MEDICAL | | | | | | CENTER - | | | | | | LABORATORY | | + + + + + + | Creatinine | 0.75 | 0.60 - 1.30 | [facility] | | | | | mg/dL | [facility] | | | | | | MEDICAL | | | | | | CENTER - | | | | | | LABORATORY | | + + + + + + | eGFR if not | >60Comment: GLOMERULAR | >=60 | [facility] | | | | FILTRATION | mL/min/1.73m2 | [facility] | | | INDONESIAN | RATE,ESTIMATED | | MEDICAL | | | | mL/min/1.34y8Whbf than | | CENTER - | | [...] 3.8 | 3.2 - 5.0 g/dL | [facility] | | | | | | ST. [...] + | [facility] | [address] | [place], [place] | [phone] | | [facility] | | [address] | | | - LABORATORY | | | | + + + + + | [facility] | [address] | [place], [place] | | | [facility] | | [address], [facility] | | | - LABORATORY [...] [facility] | | | | | | . [facility] | | | | | | MEDICAL | | | | | | CENTER - | | | | | | LABORATORY | | + + + + + + | RBC | 4.24 | 3.70 - 5.20 | [facility] | | | | | M/uL | [facility] | | | | | | MEDICAL | | | | | | CENTER - | | | | | | LABORATORY | | + + + + + + | Hemoglobin | 12.3 | 11.5 - 16.0 | [facility] | | | | | g/dL | [facility] | | | | | [...] | Basophils | | K/uL | [facility] | [...] + | [facility] | [address] | [place] | [phone] | | [facility] | | [address] | | | - LABORATORY | | | | + + + + + | [facility] | [address] | [place] | | | [facility] | | [id number] | | | - LABORATORY | | [...] | | POC | | | [facility] | | [...] + | [facility] | [address] | [place], [place] | [phone] | | [facility] | | [address] | | | - LABORATORY | | | | + + + + + | [facility] | [address] | [place], [place] | | | [facility] | | [facility], [facility] | | | - LABORATORY [...]
--- OUTSIDE RECORDS SUMMARY | ~2020-03-05 | XMS | Encounter Summary ---
Demographics + + + | Address | [address] | | | [place] [address] | + + + | Home Phone [...] Providers + +------+ + | Care Analytics Consultant Name | Role | Phone | [...] | at [facility] [address] | [address] | test results | | | | Ave Mailcode: CH7C | [facility] [address], | | | | | [facility] | [place] [address] | | | | | and Healing, | [phone] | | | | | [facility] | | | | | | Floor [place], [place] | | | | | | [address] | | | | | | [phone] | | | +--------+ + + + [...]
--- OUTSIDE RECORDS SUMMARY | ~2020-03-05 | XMS | Encounter Summary ---
Demographics + + + | Address | [address] | | | [place] [address] | + + + | Home Phone [...] Providers + +------+ + | Care Cloth Handler Name | Role | Phone | [...] + + | 11/23/ | Telephone | [facility] [place] | Jairo Doshi, | Imaging Only | | 2019 | | NEUROSURGERY [address] | PA-C [address] | | | | | [address] | [address] [place] | | | | | [place], [place] | [place] [address] | | | | | [address] | [phone] | | | | | [phone] | | | +--------+ + + + [...] [place] | | | | | | [address] | | | | | | | | +--------+---------+ + + + | 04/03/ | Office | Cardiology | Zuleyka Castillo DO | | | 2020 | Visit | | [address] | | | | | | [place] | | | | | | [address] | | | | | | | | +--------+---------+ + + + documented as of this encounter Visit Diagnoses Not on filedocumented in this encounter"
--- OUTSIDE RECORDS SUMMARY | ~2020-03-05 | XMS | Encounter Summary ---
Demographics + + + | Address | [address] | | | [place] [address] | + + + | Home Phone [...] Providers + +------+ + | Care Nurse Sitter Name | Role | Phone | + [...] Required | Rehabilitatio | | Yaneli, | Maysel | | | | n | radiculopath | PA-C [address] | [place], | | | | | y Chronic | [address], | [place] [address] | | | | | low back | [place] [address] | Phone: | | | | | pain Facet | [place], [place] | [phone] | | | | | arthritis of | [address] | Fax: | | | | | lumbar | Phone: | [phone] | | | | | region | [phone] | | | | | | Foram[place] | Fax: | | | | | | stenosis of | [phone] | | | | | | lumbar [...] + + | 04/17/ | Office | [facility] | Bogdanowicz, | Left lumbar | | 2013 | Visit | PHYSIATRY [address] | [address] | radiculopathy | | | | [address] | [address], [address] [address] | (Primary Dx); | | | | [place] | [place] [address] | Chronic low back | | | | [address] | [phone] | pain; Facet | | | | [phone] | | arthritis of lumbar | | [...] of the procedure you must provide a new car driver to take you home. For [...] me to refill this prescription as her [facility] provider will not refill them either. She [...] has no apparent deficits with short or group home memory. She has appropriate fund of [...] [place] | | | | | | [address] | | | | | | | | +--------+---------+ + + + | 04/03/ | Office | Cardiology | Zuleyka Castillo DO | | | 2019 | Visit | | [address] | | | | | | [place] | | | | | | [address] | | | | | | | [...] ICD-9 Code 724.4 Kori Harshal | [facility] | | Joanne presents to the fluoroscopy suite for a [facility] | | fluoroscopically-guided left L5-S1 transforaminal [...] [address] | [place] | [phone] | | [facility] | | [address] | | | - IMAGING | | [...]
--- OUTSIDE RECORDS SUMMARY | ~2020-03-05 | XMS | Encounter Summary ---
Demographics + + + | Address | [address] | | | [place] [address] | + + + | Home Phone [...] Providers + +------+ + | Care Immigration Guard Name | Role | Phone | + [...] | 2016 | Encounter | at [facility] [address] | [address] | medical records from | | | | Ave Mailcode: [place] | [address] [place], | [facility] in | | | | [place] for [facility] | [place] [address] | [facility] | | | | and Healing, | [phone] | in [address] | | | | [facility] | | Ant | | | | Floor [place], [place] | | | | | | [address] | | | | | | [phone] | | | +--------+ + + + [...]
--- OUTSIDE RECORDS SUMMARY | ~2020-03-05 | XMS | Encounter Summary ---
Demographics + + + | Address | [address] | | | [place] [address] | + + + | Home Phone [...] Team Providers + +------+ + | Care Laundry Press Operator Name | Role | Phone [...] 2019 | | [facility] | [address] | [facility] | | | | ORTHOPEDIC SPINE | [place], | Healthcare Orders) | | | | [address] [place] | [place] [address] | | | | | [place] | [phone] | | | | | [address] | | | | | | [phone] | | | +--------+ + + + [...] [place] | | | | | | [address] | | | | | | | | +--------+---------+ + + + | 04/03/ | Office | Cardiology | Zuleyka Castillo DO | | | 2019 | Visit | | [address] | | | | | | [place] | | | | | | [address] | | | | | | | | +--------+---------+ + + + documented as of this encounter Visit Diagnoses Not on filedocumented in this encounter"
--- OUTSIDE RECORDS SUMMARY | ~2020-03-05 | XMS | Encounter Summary ---
Demographics + + + | Address | [address] | | | [place] [address] | + + + | Home Phone [...] Providers + +------+ + | Care Social Services Manager Name | Role | Phone | [...] + + | 01/13/ | Office | [facility] | Denys Sibley, | S/P insertion of | | 2019 | Visit | [facility] | DO [address] | spinal cord | | | | [address]Y [address] [place] [place] | stimulator (Primary | | | | [address] [place] | [address] | Dx); Spinal stenosis | | | | [place], [place] | | of lumbosacral | | | | [address] | | region; Lumbar | | | | [phone] | | region somatic | | | [...] 8 hours as needed muscle spasms and Sagamore 10/325 1 p.o. every 4 hours PRN [...] but not limited to physical therapy, career and technology education teacher, acupuncture, massage therapy, and nutritional healt h [...] Author Status Filed Medication Agreement Rupa Nye, Traffic Enumerator Active 11/14/2019 1:49 PM Pain Contract- Dr. Sibley 11/14/2019 PEG Pain screening tool (Pain, enjoyment, general activity) Total score: (Printable questionnaires in Cape Verdean ) Interpretation of Total Score: PEG scores are used to track changes over time. It should de crease after therapy has begun. Last 4 PEG Scores: No flowsheet data found. Opioid Risk Tool (ORT): Total Score Pulse: 79 BP: 107/62 (From Chronic Pain tab; printable questionnaires in [place]dean) Interpretation of Total Score: 0 to 3 [...] Arthralgia Arthritis Asthma Asthma Back pain Cancer ([facility]) 2004 breast Cataract Cerebrovascular accident (CVA) ([facility]) no per pt Chronic back pain Chronic back pain Chronic constipation Concussion 07/2015 Preceeded by seizure Constipation COPD (chronic obstructive pulmonary disease) ([facility]) Degenerative disc disease Depression Depression Diabetes mellitus ([facility]) Diabetes mellitus, type 2 ([facility]) diet controlled Diabetes type 2, controlled ([facility]) diet controlled Diarrhea Disorder of [...] Scoliosis Scoliosis of lumbar spine 04/17/2014 Seizure ([facility]) one due to meds, two [...] Date Acid reflux disease Acute renal failure ([facility]) April 2013 Adverse effect of anesthesia hx hallucinations after anesthesia x 3 yrs ago. Anesthesia hallucinated after bladder repair Arthralgia Arthritis Asthma Asthma Back pain Cancer ([facility]) 2004 breast Cataract Cerebrovascular accident (CVA) ([facility]) no per pt Chronic back pain Chronic back pain Chronic constipation Concussion 07/2015 Preceeded by seizure Constipation COPD (chronic obstructive pulmonary disease) ([facility]) Degenerative disc disease Depression Depression Diabetes mellitus ([facility]) Diabetes mellitus, type 2 ([facility]) diet controlled Diabetes type 2, controlled ([facility]) diet controlled Diarrhea Disorder of [...] Scoliosis Scoliosis of lumbar spine 04/17/2014 Seizure ([facility]) one due to meds, two [...] Procedure: KYPHOPLASTY; Surgeon: Alfredo Casillas DO; Location: [facility] MAIN OR; Service: Pa in Management; Laterality: N/A; L5 FRACTURE SURGERY ANKLE HERNIA REPAIR HYSTERECTOMY HYSTERECTOMY LAMINECTOMY N/A 08/03/2019 Procedure: LAMINOTOMY THORACIC / LUMBAR W/ PLACEMENT SPINAL CORD STIMULATOR; Surgeon: Suly Hutchins MD; Location: [facility] MAIN OR OTHER SURGICAL HISTORY [...] 500 mg 4 times a day, and Sagamore 10/325 1 p.o. q. 4-5 chet es [...] reviewed, listed controlled substances are consistent with [facility] prescriptions and patient reported use. Controlled Medications: [...] = high risk) Daily Opioid Dose = Sagamore 10/325 1 p.o. every 4 hours as [...] to physical therapy, massage therapy, acupuncture, career and technology education teacher, along with niki mmended psychological counseling, either [...] are noted in men and women. Ma mt men will suffer erectile dysfunction with these [...] of care with other health critical care registered nurse and monitoring labs results, other test results and imagin g including [facility] and/or [facility] prescription monitoring systems. This document has been created using [employer] Voice Recognition software and [employer]. The entry has been reviewed for content and accuracy, but there may still exist "sound alike" franchise specialist word errors and/or unintended additions and [...] [place] | | | | | | [address] | | | | | | | | +--------+---------+ + + + | 04/03/ | Office | Cardiology | Zuleyka Castillo DO | | 2019 | Visit | | [address] | | | | | | [place] | | | | | | [id number] | | | | | | | [...]
--- OUTSIDE RECORDS SUMMARY | ~2020-03-05 | XMS | Encounter Summary ---
Demographics + + + | Address | [address] | | | [place] [address] | + + + | Home Phone [...] Team Providers + +------+ + | Care Roller Leveler Name | Role | Phone | + +------+ + | No, Physician | PCP | Unavailable | + +------+ + Encounter Details +--------+ + + + + | Date | Type | Department | Care Team | Description | +--------+ + + + + | 03/05/ | Orders Only | [facility] [place] | Emerita Morrow S, | Lumbar radiculopathy | | 2013 | | PHYSIATRY [address] | CLAMP JIG ASSEMBLER | (Primary Dx) | | | | [address] | | | | | | [place] | | | | | | [address] | | | | | | [phone] | | | +--------+ + + + [...] [place] | | | | | | [address] | | | | | | | | +--------+---------+ + + + | 04/03/ | Office | Cardiology | Zuleyka Castillo DO | | | 2019 | Visit | | [address] | | | | | | [place] | | | | | | [address] | | | | | | | [...] ICD-9 Code 724.4 Ms. Sheikh | [facility] | | Joanne presents to the fluoroscopy suite for a [facility] | | fluoroscopically-guided left L5-S1 [...] Epidural Steroid InjectionDiagnosis: Lumbar radiculopathyICD-9 Code 724.4Ms. Sheikh | | Joanne presents to the [...] ST. | [address] | [place], [place] | [phone] | | [facility] | | [address] | | | - IMAGING | | | | + + + + + documented in this encounter Visit Diagnoses + + | Diagnosis | + + | Lumbar radiculopathy - Primary Thoracic or lumbosacral neuritis or radiculitis, | | unspecified | + + documented in this encounter"
--- OUTSIDE RECORDS SUMMARY | ~2020-03-05 | XMS | Encounter Summary ---
Demographics + + + | Address | [address] | | | [place] [address] | + + + | Home Phone [...] Providers + +------+ + | Care Administrative Services Officer Name | Role | Phone | + +------+ + | Wendi Aiken | PCP | | + +------+ + Encounter Details +--------+ + + + + | Date | Type | Department | Care Team | Description | +--------+ + + + + | 06/07/ | Hospital | [facility] MEDICAL | Conversion | | | 2018 | Encounter | CENTER [facility] | Transaction, | | | | | CLINIC [address] | Provider Unknown | | | | | [place], [place] | | | | | | [address] | (Fax) | | | | | [phone] | | | +--------+ + + + [...] [place] | | | | | | [id number] | | | | | | | | +--------+---------+ + + + | 04/03/ | Office | Cardiology | Zuleyka Castillo DO | | | 2019 | Visit | | [address] | | | | | | [place] | | | | | | [address] | | | | | | | [...] | | Basophils | performed at [facility], [address] | [address] | LAB | | | | [address], | | | | | | [place] [address] | | | | + + + [...] | | | | performed at [facility], [address] | | | | | | [address], | | | | | | [place] [address] | | | | + + + [...]
--- OUTSIDE RECORDS SUMMARY | ~2020-03-05 | XMS | Encounter Summary ---
Demographics + + + | Address | [address] | | | [place] [address] | + + + | Home Phone [...] Providers + +------+ + | Care Stain Applicator Name | Role | Phone | + +------+ + | Concepción Gallardo NP | PCP | | + +------+ + Encounter Details +--------+ + + + + | Date | Type | Department | Care Team | Description | +--------+ + + + + | 07/17/ | Hospital | [facility] | Paty, | Intractable low back | | 2014 - | Encounter | [facility] | MD [address] | pain | | | | CLINICAL DECISION | [address] | | | 07/18/ | | [address] | [place] [address] | | | 2013 | | [place], [place] | [phone] | | | | | [address] | | | | | | [phone] | | | +--------+ + + + [...] Date of Service: 07/18/14 1131 Status: Signed Musculoskeletal Physiotherapist: Bob Valverde DO (Physician) [facility] Service: Hospitalist Discharge Summary Date of Admission: [...] IV Fentanyl, a s well as oral [place] 10's, Zanaflex, Klonopin, and PT was ordered. [...] Date of Service: 07/18/14 1310 Status: Signed Musculoskeletal Physiotherapist: Nati Mena RN (Registered Nurse) Pt discharged [...] Notes by Nati Mena RN at 07/18/14 5794 Author: Nati Mena RN Service: (none) Author Type: Registered Nurse Filed: 07/18/14 1340 Date of Service: 07/18/14 1245 Status: Signed Musculoskeletal Physiotherapist: Nati Mena RN (Registered Nurse) Pt to [...] Date of Service: 07/18/14 1245 Status: Addendum Musculoskeletal Physiotherapist: Sj Bender PT (Physical Therapist) Related Notes: [...] Recommended (has FWW) Prior Function Level of [place] Modified independent with functional mobility;Modified independent wi [...] G Codes Mobility: Walking & Moving Around: [id number] Current Status : CK - At least 40% but less than 60% impaired, limited or restricted $[id number] Projected Goal Status : CK - At [...] 0549 Date of Service: 07/18/14509 Status: Signed Musculoskeletal Physiotherapist: Dion Goldsmith RN (Registered Nurse) 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 PILLOW AGENT reports pt woke up to ask what her blood pressure is. Pt sleepin g now. Plan to recheck B/P in an hour. onver hiren Akosua, Provider Unknown - 07/18/2014 3:29 AM PDT Progress Notes by Sofi Sol RPH at 07/18/14328 Author: Sofi Sol RPH Service: (none) Author Type: Pharmacist Filed: 07/18/14328 Date of Service: 07/18/14328 Status: Signed Musculoskeletal Physiotherapist: Sofi Sol RPH (Pharmacist) Clinical Pharmacy Note: [...] [place] | | | | | | [address] | | | | | | | | +--------+---------+ + + + | 04/03/ | Office | Cardiology | Zuleyka Castillo DO | | | 2019 | Visit | | [address] | | | | | | [place] | | | | | | [address] | | | | | | | [...] | LAB | | | | [facility] [facility];[place], [place] | | | | | | [address] | | | | + + + [...] | LAB | | | | [address];[place] | | | | | | [address] | | | | + + + [...] | | | | | [place] [address] | | | | + + + + + + | Red Blood | 4.16Comment: Testing | 3.70 - 5.10 | EXTERNAL | | | Cells | performed at [facility], [address] | M/uL | LAB | | | Counted | [address], | | | | | | [place] [address] | | | | + + + + + + | Hemoglobin | 11.6Comment: Testing | 11.3 - 15.5 | EXTERNAL | | | | performed at [facility], [address] | g/dL | LAB | | | | [address], | | | | | | [place] [address] | | | | + + + + + + | Hematocrit, | 36.4Comment: Testing | 34.0 - 46.0 % | EXTERNAL | | | POC | performed at [facility], [address] | | LAB | | | | [address], | | | | | | [place] [address] | | | | + + + + + + | MCV | 87.5Comment: Testing | 80.0 - 100.0 fl | EXTERNAL | | | | performed at [facility], [address] | | LAB | | | | [address], | | | | | | [place] [address] | | | | + + + + + + | MCH | 27.9Comment: Testing | 27.0 - 34.0 pg | EXTERNAL | | | | performed at [facility], [address] | | LAB | | | | [address], | | | | | | [place] [address] | | | | + + + + + + | MCHC | 31.9 (L)Comment: Testing | 32.0 - 35.5 | EXTERNAL | | | | performed at [facility], [address] | g/dL | LAB | | | | [address], | | | | | | [place] [address] | | | | + + + + + + | RDW-CV | 43.8Comment: Testing | 37 - 53 fl | EXTERNAL | | | | performed at [facility], [address] | | LAB | | | | [address], | | | | | | [place] [address] | | | | + + + + + + | Platelet | 244Comment: Testing | 150 - 400 K/uL | EXTERNAL | | | Count | performed at [facility], [address] | | LAB | | | Plasma | [address], | | | | | | [place] [address] | | | | + + + + + + | MPV | 8.3Comment: Testing | fl | EXTERNAL | | | | performed at [facility], [address] | | LAB | | | | [address], | | | | | | [place] [address] | | | | + + + + + + | Differentia | AUTOMATEDComment: | | EXTERNAL | | | l Type | Testing performed at | | LAB | | | | [facility], [address] | | | | | | [place] | | | | | | [address] | | | | + + + + + + | % Segmented | 40.1Comment: Testing | % | EXTERNAL | | | | performed at [facility], [address] | | LAB | | | Neutrophils | [address], | | | | | | [place] [address] | | | | + + + + + + | % | 48.1Comment: Testing | % | EXTERNAL | | | Lymphocytes | performed at [facility], [address] | | LAB | | | | [address], | | | | | | [place] [address] | | | | + + + + + + | % Monocytes | 9.5Comment: Testing | % | EXTERNAL | | | | performed at [facility], [address] | | LAB | | | | [address], | | | | | | [place] [address] | | | | + + + + + + | % | 1.9Comment: Testing | % | EXTERNAL | | | Eosinophils | performed at [facility], [address] | | LAB | | | | [address], | | | | | | [place] [address] | | | | + + + + + + | % Basophils | 0.4Comment: Testing | % | EXTERNAL | | | | performed at [facility], [address] | | LAB | | | | [address], | | | | | | [place] [address] | | | | + + + + + + | Absolute | 2.0Comment: Testing | 1.9 - 7.4 K/uL | EXTERNAL | | | Segmented | performed at [facility], [address] | | LAB | | | Neutrophils | [address], | | | | | | [place] [address] | | | | + + + + + + | Absolute | 2.4Comment: Testing | 1.0 - 3.9 K/uL | EXTERNAL | | | Lymphocytes | performed at [facility], [address] | | LAB | | | | [address], | | | | | | [place] [address] | | | | + + + + + + | Absolute | 0.5Comment: Testing | 0 - 0.8 K/uL | EXTERNAL | | | Monocytes | performed at [facility], [address] | | LAB | | | | [address], | | | | | | [place] [address] | | | | + + + + + + | Absolute | 0.1Comment: Testing | 0 - 0.5 K/uL | EXTERNAL | | | Eosinophils | performed at [facility], [address] | | LAB | | | | [address], | | | | | | [place] [address] | | | | + + + + + + | Absolute | 0.0Comment: Testing | 0 - 0.1 K/uL | EXTERNAL | | | Basophils | performed at [facility], [address] | | LAB | | | | [address], | | | | | | [place] [address] | | | | + + + [...] [address], | | | | | | [place] [address] | | | | + + + [...] | | | | | [place] [address] | | | | + + + [...] EXTERNAL | | | | performed at [facility], [address] | | LAB | | | | [address], | | | | | | [place] [address] | | | | + + + [...] + + | Hemoglobin | 5.2Comment: The [place] | 4.0 - 6.0 % | EXTERNAL [...] | | | | performed at [facility], [address] | | | | | [address], | | | | | | [place] [address] | | | | + + + [...] | | | | performed at [facility], [address] | | | | | | [place], | | | | | | [place] [address] | | | | + + + [...] | | | Direct | performed at [facility], [address] | | LAB | | | | [address], | | | | | | [place] [address] | | | | + + + [...] | | | | | [place] [address] | | | | + + + + + + | K | 4.0Comment: Testing | 3.5 - 4.9 | EXTERNAL | | | | performed at [facility], [address] | mmol/L | LAB | | | | [address], | | | | | | [place] [address] | | | | + + + + + + | Cl | 106Comment: Testing | 99 - 109 mmol/L | EXTERNAL | | | | performed at [facility], [address] | | LAB | | | | [address], | | | | | | [place] [address] | | | | + + + + + + | CO2 | 28Comment: Testing | 23 - 32 mmol/L | EXTERNAL | | | | performed at [facility], [address] | | LAB | | | | [address], | | | | | | [place] [address] | | | | + + + + + + | Anion Gap | 8Comment: Testing | 5 - 20 mmol/L | EXTERNAL | | | | performed at [facility], [address] | | LAB | | | | [address], | | | | | | [place], [place] [address] | | | | + + + + + + | Glucose, | 82Comment: Testing | 65 - 99 mg/dL | EXTERNAL | | | Fasting | performed at [facility], [address] | | LAB | | | | [address], | | | | | | [place], [place] [address] | | | | + + + + + + | BUN | 18Comment: Testing | 8 - 25 mg/dL | EXTERNAL | | | | performed at [facility], [address] | | LAB | | | | [address], | | | | | | [place] [address] | | | | + + + + + + | Creatinine | 0.61Comment: Testing | 0.50 - 1.00 | EXTERNAL | | | | performed at [facility], [address] | mg/dL | LAB | | | | [address], | | | | | | [place] [address] | | | | + + + + + + | BUN/Creatin | 30Comment: Testing | | EXTERNAL | | | ine Ratio | performed at [facility], [address] | | LAB | | | | [address], | | | | | | [place] [address] | | | | + + + + + + | Calcium | 8.7Comment: Testing | 8.5 - 10.2 | EXTERNAL | | | | performed at [facility], [address] | mg/dL | LAB | | | | [address], | | | | | | [place] [address] | | | | + + + + + + | Protein, | 5.9 (L)Comment: Testing | 6.3 - 8.2 g/dL | EXTERNAL | | | Total | performed at [facility], [address] | | LAB | | | [address], | | | | | | [place] [address] | | | | + + + + + + | Albumin | 3.7Comment: Testing | 3.3 - 4.8 g/dL | EXTERNAL | | | | performed at [facility], [address] | | LAB | | | | [address], | | | | | | [place] [address] | | | | + + + + + + | Globulin | 2.2Comment: Testing | 1.3 - 4.9 g/dL | EXTERNAL | | | | performed at [facility], [address] | | LAB | | | | [address], | | | | | | [place] [address] | | | | + + + + + + | A/G Ratio | 1.7Comment: Testing | 1.0 - 2.4 | EXTERNAL | | | | performed at [facility], [address] | | LAB | | | | [address], | | | | | | [place] [address] | | | | + + + + + + | Bilirubin | 0.3Comment: Testing | 0.1 - 1.5 mg/dL | EXTERNAL | | | Total | performed at [facility], [address] | | LAB | | | | [address], | | | | | | [place] [address] | | | | + + + + + + | ALP, | 86Comment: Testing | 35 - 115 U/L | EXTERNAL | | | External | performed at [facility], [address] | | LAB | | | | [address], | | | | | | [place] [address] | | | | + + + + + + | AST | 162 (H)Comment: Testing | 10 - 45 U/L | EXTERNAL | | | | performed at [facility], [address] | | LAB | | | | [address], | | | | | | [place] [address] | | | | + + + + + + | ALT | 112 (H)Comment: Testing | 10 - 65 U/L | EXTERNAL | | | | performed at [facility], [address] | | LAB | | | | [address], | | | | | | [place] [address] | | | | + + + [...] | | | | | | at [facility], [address] | | | | | | [address], | | | | | | [place] [address] | | | | + + + [...] | LAB | | | | [address];[place] | | | | | | [address] | | | | + + + [...]
--- OUTSIDE RECORDS SUMMARY | ~2020-03-05 | XMS | Encounter Summary ---
Demographics + + + | Address | [address] | | | [place] [address] | + + + | Home Phone [...] Providers + +------+ + | Care Show Operations Supervisor Name | Role | Phone | + +------+ + | Miquel Calhoun MD | PCP | | + +------+ + Encounter Details +--------+ + + + + | Date | Type | Department | Care Team | Description | +--------+ + + + + | 11/14/ | Hospital | [facility] | Earnest Acosta MD | Hypothyroid; History | | 2013 - | Encounter | MEDICAL CENTER | [address] [facility] | of oral aphthous | | | | CLINICAL DECISION | [address], | ulcers; Anemia, | | | | [address] | [place] [address] | unspecified; | | 2013 | | [place], [place] | [phone] | Aspiration pneumonia | | | | [phone] | | ([facility]); COPD | | | | [phone] | | (chronic obstructive | | | | | | pulmonary disease) | | | | | | ([facility]); Generalized | | | | | [...] 1140 Date of Service: 11/19/131920 Status: Signed Dye Weigher Helper: Fran Eddy MD (Physician) Related Notes: Original Note by Fran Eddy MD (Physician) filed at 11/20/13 1418 Patient ID: Ronald Torrestyfawthrop [id number] 68 y.o. 1945 Admit date: 11/14/2013 Discharge [...] - 99 mg/dL Final Testing performed at [facility], [address] [place] [address]677 BUN Date Value Range Status 11/19/2013 12 8 - 25 mg/dL Final Testing performed at [facility], [address] [place] [address] 89774 CREATININE Date Value Range Status 11/19/2013 0.80 0.50 - 1.00 mg/dL Final Testing performed at [facility], [address] [place] [address] BUN/CREAT Date Value Range Status 11/19/2013 15 Final Testing performed at [facility], [address] [place] [address] 22094 TOTAL PROTEIN Date Value Range Status 11/17/2013 5.2* 6.3 - 8.2 g/dL Final Testing performed at [address] [address] GLOBULIN Date Value Range Status 11/17/2013 2.1 1.3 - 4.9 g/dL Final Testing performed at [address] [address] TBIL Date Value Range Status 11/17/2013 0.6 0.1 - 1.5 mg/dL Final Testing performed at [address] [address] ALT Date Value Range Status 11/17/2013 21 10 - 65 U/L Final Testing performed at [facility], [address] [place] [address]80 AST Date Value Range Status 11/17/2013 19 10 - 45 U/L Final Testing performed at [address] [address] SODIUM Date Value Range Status 11/19/2013 133* 135 - 143 mmol/L Final Testing performed at [address] [address] POTASSIUM Date Value Range Status 11/19/2013 3.9 3.5 - 4.9 mmol/L Final Testing performed at [facility], [address] [place] [address] CHLORIDE Date Value Range Status 11/19/2013 101 99 - 109 mmol/L Final Testing performed at [facility], [address] [place] [address] CO2 Date Value Range Status 11/19/2013 24 23 - 32 mmol/L Final Testing performed at [facility], [address] [place] [address] ANION GAP AGAP Date Value Range Status 11/19/2013 12 5 - 20 mmol/L Final Testing performed at [facility], [address] [place] [address] X-ray Lumbar Spine Limited 2-3 Views 11/18/2013 [...] the emergency department, who was admitted to [facility] on November 14, 2013, when she was found to be unresponsive by EMS and thought to be secondary to Flexeril overdose and alcohol intoxication, and alcohol level was more than 300 , and patient was found to be hypotensive. Hence, she was intubated and brought to the [facility] from outside hospital and was started on dopamine and norepinephri ne and Tylenol level was checked, which was 44, for which she was put on acetylcysteine prot ocol and was transferred to medical floor on November 15, 2013, and Dr. Moore from psychia tric service was consulted after patient stabilized and she was taken to [facility] under Dr. Diana's care. 2. Chronic back pain, for which patient was discharged to [facility] on [place] in p.r.n. 3. Aphthous [...] noted. No erythema. No pallor. Disposition: [facility] in patient psychiatric facility Patient Instructions: Medication [...] file for this visit. Miquel Calhoun MD [address] [place] [address] In 1 week Signed: FRAN EDDY 11/19/2013 [...] 11/19/132053 Date of Service: 11/19/132029 Status: Signed Dye Weigher Helper: Ruby Chávez RN (Registered Nurse) Pt currently on psychiatric hold; Transport here to take pt to [facility]. Pt complains of yessica n; Given Ultram (See MAR) VSS; Afebrile; No SOB. Nurse to nurse given to [facility]. Pt dc'd by bebo. Ruby Chávez 11/19/2013 Fran Porter MD - 11/19/2013 3:24 PM PSTFormatting of this note might be different from the or iginal. Progress Notes by Fran Eddy MD at 11/19/131523 Author: Fran Eddy MD Service: Hospitalist Author Type: Physician Filed: 11/19/131535 Date of Service: 11/19/131523 Status: Addendum Dye Weigher Helper: Fran Eddy MD (Physician) Related Notes: Original Note by Fran Eddy MD (Physician) filed at 11/19/13 1535 [facility] Service: Hospitalist Progress Note Ronald Kowthrleighann 68 y.o. [id number] 306/306-2 female [facility] Day: LOS: 5 days Patient Summary: .A 68-year-old female with past medical history of depression with m ultiple suicide attempts in the past, history of COPD, which she attributes to paint inhalat ion, history of anxiety, restless leg syndrome, GERD, diabetes mellitus type 2, diet control led, hypothyroidism, who was admitted to [facility] on the November 14, when the patient was found to be unresponsive by EMS and thought to be secondary to Fle xeril overdose and alcohol intoxication as her alcohol level was more than 300. The patient was found to be hypertensive, hence she was intubated and brought to the [facility] where she was put on dopamine, [...] by PCR (TAT 3 hr in house) [[id number]] Collected:11/19/13 0703 Specimen Information:Stool / Stool Updated:11/19/13806 Toxigenic C Difficile NEGATIVE 027 NAP1 BI 027 NAP1 BI PRESUMPTIVE NEGATIVE Magnesium [[id number]] Collected:11/19/13424 MAGNESIUM 2.2 mg/dL Updated:11/19/13806 Phosphorus [[id number]] Collected:11/19/13424 PHOSPHORUS 4.0 mg/dL Updated:11/19/13806 Basic metabolic panel [[id number]] (Abnormal) Collected:11/19/13424 Specimen Information:Blood Updated:11/19/13 0544 SODIUM 133 (L) mmol/L POTASSIUM 3.9 mmol/L CHLORIDE 101 mmol/L CO2 24 mmol/L ANION GAP AGAP 12 mmol/L GLUCOSE 108 (H) mg/dL BUN 12 mg/dL CREATININE 0.80 mg/dL BUN/CREAT 15 CALCIUM 9.2 mg/dL EGFR >60 mL/min/1.73m2 CBC w/auto diff (reflex to manual) [[id number]] (Abnormal) Collected:11/19/13 0425 Specimen Information:Blood Updated:11/19/13 0540 [...] K/uL MORPHOLOGY Fecal occult blood (in house) [[id number]] Collected:11/19/13 0146 Specimen Information:Stool / Stool Updated:11/19/13 0217 Fecal Occult Blood NEGATIVE Urine culture [[id number]] Collected:11/17/13 1013 Specimen Information:Urine / Urine, Catheter Updated:11/18/13 1710 Specimen Description CATHETERIZED URINE Specimen Description Result: Testing performed at [facility];[address] [place] [address] CULTURE NO GROWTH CULTURE Result: Testing performed at [facility], [address] [place] [address] REPORT STATUS 11/18/2013 FINAL Blood culture, 1 of 2 [[id number]] Collected:11/17/13 1042 Specimen Information:Blood / Blood Updated:11/18/13 1451 Specimen Description BLOOD Specimen Description Result: Testing performed at [facility];[address] [place] [address] SPECIAL REQUESTS Result: REPEAT TEST USING ALTERNATE ASSAYED CONTROL MATERIAL SPECIAL REQUESTS Result: Testing performed at [facility];[address] [place] [address] CULTURE NO GROWTH AT THIS TIME CULTURE Result: Testing performed at [facility], [address] [place] [address] REPORT STATUS PENDING Blood culture, 2 of 2 [[id number]] Collected:11/17/13 1050 Specimen Information:Blood / Blood Updated:11/18/13 1451 Specimen Description BLOOD Specimen Description Result: Testing performed at [facility];[address] [place] [address] SPECIAL REQUESTS PICC LINE SPECIAL REQUESTS Result: Testing performed at [facility];[address] [place] [address] CULTURE NO GROWTH AT THIS TIME CULTURE Result: Testing performed at [facility], [address] [place] [address] REPORT STATUS PENDING Sputum culture [[id number]] Collected:11/17/13 1153 Specimen Information:Sputum / Sputum Updated:11/18/13 1428 Specimen Description SPUTUM Specimen Description Result: Testing performed at [facility];[address] [place] [address] GRAM STAIN GREATER THAN 10 WBCS/LPF GRAM STAIN LESS THAN 10 SEC/LPF GRAM STAIN NO ORGANISMS SEEN GRAM STAIN Result: Testing performed at [facility], [address] [place] [address] CULTURE 1+ NORMAL UPPER RESPIRATORY CURTIS CULTURE Result: Testing performed at [facility], [address] [place] [address] REPORT STATUS PENDING Magnesium [[id number]] Collected:11/18/13 0600 Specimen Information:Blood Updated:11/18/13 1104 MAGNESIUM 2.1 mg/dL Phosphorus [[id number]] Collected:11/18/13 0600 Specimen Information:Blood Updated:11/18/13 1104 PHOSPHORUS 3.8 mg/dL Basic metabolic panel [[id number]] (Abnormal) Collected:11/18/13 0600 Specimen Information:Blood Updated:11/18/13 0716 SODIUM 135 mmol/L POTASSIUM 4.2 mmol/L CHLORIDE 104 mmol/L CO2 24 mmol/L ANION GAP AGAP 11 mmol/L GLUCOSE 110 (H) mg/dL BUN 11 mg/dL CREATININE 0.73 mg/dL BUN/CREAT 15 CALCIUM 9.0 mg/dL EGFR >60 mL/min/1.73m2 TSH [[id number]] Collected:11/18/13 0600 Specimen Information:Blood Updated:11/18/13 0713 TSH 4.28 uIU/mL CBC w/auto diff (reflex to manual) [[id number]] (Abnormal) Collected:11/18/13 0600 Specimen Information:Blood Updated:11/18/13 0647 [...] K/uL BASOPHILS ABS 0.0 K/uL Urine culture [[id number]] Collected:11/16/13 0951 Specimen Information:Urine / Urine, Clean Catch Updated:11/17/13 1618 Specimen Description CLEAN CATCH URINE Specimen Description Result: Testing performed at [address] [address] CULTURE NO GROWTH CULTURE Result: Testing performed at [facility], [address] [place] [address] REPORT STATUS 11/17/2013 FINAL Magnesium [[id number]] (Abnormal) Collected:11/16/13 0407 Specimen Information:Blood Updated:11/17/13 1141 MAGNESIUM 1.6 (L) mg/dL Phosphorus [[id number]] (Abnormal) Collected:11/16/13 0407 Specimen Information:Blood Updated:11/17/13 1141 PHOSPHORUS 1.7 (L) mg/dL Iron panel [[id number]] (Abnormal) Collected:11/17/1357 Specimen Information:Blood Updated:11/17/1318 IRON 31 ug/dL TIBC 155 (L) ug/dL IRON % SAT 20 % Vitamin B12 [[id number]] Collected:11/17/1357 Specimen Information:Blood Updated:11/17/1311 VITAMIN B12 417 pg/mL Folate [[id number]] Collected:11/17/1357 Specimen Information:Blood Updated:11/17/13710 FOLATE 17.7 ng/mL Ferritin [[id number]] Collected:11/17/13556 Specimen Information:Blood Updated:11/17/13 0711 FERRITIN 140 ng/mL Comprehensive metabolic panel [[id number]] (Abnormal) Collected:11/17/13 0557 Specimen Information:Blood Updated:11/17/13 0710 [...] mL/min/1.73m2 CBC w/auto diff (reflex to manual) [[id number]] (Abnormal) Collected:11/17/1357 Specimen Information:Blood Updated:11/17/13 0641 WBC [...] Case Management by ANGELO Lujan at 11/19/13 0864 Author: ANGELO Lujan Service: (none) Author Type: Lamp Shade Maker Filed: 11/19/13 2099 Date of Service: 11/19/13 0004 Status: Signed Dye Weigher Helper: ANGELO Lujan (Lamp Shade Maker) CM contacted Crisis Response Unit to inform [facility] that pt is now medically clear for MH eval uation. A DMHP will see pt in the hospital today for eval. CM spoke with IPR MD - he would like to reevaluate pt tomorrow to determine appropriateness for IPR. ANGELO Lujan Wire Mesh Gate Assembler onver hiren Transaction, Provider Unknown - 11/19/2013 12:40 PM PST Progress Notes by Emi Donaldson PT at 11/19/13 1240 Author: Emi Donaldson PT Service: (none) Author Type: Physical Therapist Filed: 11/19/13 1313 Date of Service: 11/19/13 1240 Status: Signed Dye Weigher Helper: Emi Donaldson PT (Physical Therapist) 11/19/13 1240 [...] and I have a bladder appointment at [facility] I need to take care of [...] Date of Service: 11/19/13 1020 Status: Signed Dye Weigher Helper: Emi Donaldson PT (Physical Therapist) 11/19/13 1020 PT Last Visit PT Received On 11/19/13 Requires PT Follow Up Unavailable (getting bed bath, f/u later today for PT as schedule allows) onver hiren Transaction, Provider Unknown - 11/19/2013 4:29 AM PST Nurse Progress Note by Kala Peña RN at 11/19/13 5959 Author: Kala Peña RN Service: (none) Author Type: Registered Nurse Filed: 11/19/13 0713 Date of Service: 11/19/13 0429 Status: Signed Dye Weigher Helper: Kala Peña, RN (Registered Nurse) Pt slept [...] 11/18/131826 Date of Service: 11/18/131807 Status: Signed Dye Weigher Helper: Fran Eddy MD (Physician) [facility] Service: Hospitalist Progress Note Ronald Kowtjanene 68 y.o. [id number] 306/306-2 female [facility] Day: LOS: 4 days Patient Summary: .A 68-year-old female with past medical history of depression with m ultiple suicide attempts in the past, history of COPD, which she attributes to paint inhalat ion, history of anxiety, restless leg syndrome, GERD, diabetes mellitus type 2, diet control led, hypothyroidism, who was admitted to [facility] on the November 14, when the patient was found to be unresponsive by EMS and thought to be secondary to Fle xeril overdose and alcohol intoxication as her alcohol level was more than 300. The patient was found to be hypertensive, hence she was intubated and brought to the [facility] where she was put on dopamine, [...] mood is better after she talked with Toolroom Attendant ,denied any suicidal ideation /thoughts at this moment . Patient c/o generalized weakness and evaluated by PT who recommended SNF and patient [facility] [place]. She denied any chest pain, cough,sob ,no [...] Procedure Component Value Units Date/Time Urine culture [[id number]] Collected:11/17/13 1013 Specimen Information:Urine / Urine, Catheter Updated:11/18/13 1710 Specimen Description CATHETERIZED URINE Specimen Description Result: Testing performed at [facility] [facility] [address] CULTURE NO GROWTH CULTURE Result: Testing performed at [facility], [address] [place] [address] REPORT STATUS 11/18/2013 FINAL Blood culture, 1 of 2 [[id number]] Collected:11/17/13 1042 Specimen Information:Blood / Blood Updated:11/18/13 1451 Specimen Description BLOOD Specimen Description Result: Testing performed at [facility] [address] SPECIAL REQUESTS Result: REPEAT TEST USING ALTERNATE ASSAYED CONTROL MATERIAL SPECIAL REQUESTS Result: Testing performed at [facility];[address] [place] [address];[place] [address] CULTURE NO GROWTH AT THIS TIME CULTURE Result: Testing performed at [facility], [address] [place] [address] REPORT STATUS PENDING Blood culture, 2 of 2 [[id number]] Collected:11/17/13 1050 Specimen Information:Blood / Blood Updated:11/18/13 1451 Specimen Description BLOOD Specimen Description Result: Testing performed at [facility] [address] SPECIAL REQUESTS PICC LINE SPECIAL REQUESTS Result: Testing performed at [facility];[address] [facility];[place] [address] CULTURE NO GROWTH AT THIS TIME CULTURE Result: Testing performed at [facility], [address] [place] [address] REPORT STATUS PENDING Sputum culture [[id number]] Collected:11/17/13 1153 Specimen Information:Sputum / Sputum Updated:11/18/13 1428 Specimen Description SPUTUM Specimen Description Result: Testing performed at [facility];[address] [place] [address] GRAM STAIN GREATER THAN 10 WBCS/LPF GRAM STAIN LESS THAN 10 SEC/LPF GRAM STAIN NO ORGANISMS SEEN GRAM STAIN Result: Testing performed at [facility], [address] [place] [address] CULTURE 1+ NORMAL UPPER RESPIRATORY CURTIS CULTURE Result: Testing performed at [facility], [address] [place] [address] REPORT STATUS PENDING Magnesium [[id number]] Collected:11/18/13 0600 Specimen Information:Blood Updated:11/18/13 1104 MAGNESIUM 2.1 mg/dL Phosphorus [[id number]] Collected:11/18/13 0600 Specimen Information:Blood Updated:11/18/13 1104 PHOSPHORUS 3.8 mg/dL Basic metabolic panel [[id number]] (Abnormal) Collected:11/18/13 0600 Specimen Information:Blood Updated:11/18/13 0716 SODIUM 135 mmol/L POTASSIUM 4.2 mmol/L CHLORIDE 104 mmol/L CO2 24 mmol/L ANION GAP AGAP 11 mmol/L GLUCOSE 110 (H) mg/dL BUN 11 mg/dL CREATININE 0.73 mg/dL BUN/CREAT 15 CALCIUM 9.0 mg/dL EGFR >60 mL/min/1.73m2 TSH [[id number]] Collected:11/18/13 06 Specimen Information:Blood Updated:11/18/13 0713 TSH 4.28 uIU/mL CBC w/auto diff (reflex to manual) [[id number]] (Abnormal) Collected:11/18/13 06 Specimen Information:Blood Updated:11/18/13 0647 [...] K/uL BASOPHILS ABS 0.0 K/uL Urine culture [[id number]] Collected:11/16/13 0951 Specimen Information:Urine / Urine, Clean Catch Updated:11/17/13 1618 Specimen Description CLEAN CATCH URINE Specimen Description Result: Testing performed at [facility];[address] [place] [address] CULTURE NO GROWTH CULTURE Result: Testing performed at [facility], [address] [place] [address] REPORT STATUS 11/17/2013 FINAL Magnesium [[id number]] (Abnormal) Collected:11/16/13 0407 Specimen Information:Blood Updated:11/17/13 1141 MAGNESIUM 1.6 (L) mg/dL Phosphorus [[id number]] (Abnormal) Collected:11/16/13 0407 Specimen Information:Blood Updated:11/17/13 1141 PHOSPHORUS 1.7 (L) mg/dL Iron panel [[id number]] (Abnormal) Collected:11/17/13556 Specimen Information:Blood Updated:11/17/1318 IRON 31 ug/dL TIBC 155 (L) ug/dL IRON % SAT 20 % Vitamin B12 [[id number]] Collected:11/17/13556 Specimen Information:Blood Updated:11/17/1311 VITAMIN B12 417 pg/mL Folate [[id number]] Collected:11/17/13556 Specimen Information:Blood Updated:11/17/13710 FOLATE 17.7 ng/mL Ferritin [[id number]] Collected:11/17/13556 Specimen Information:Blood Updated:11/17/1311 FERRITIN 140 ng/mL Comprehensive metabolic panel [[id number]] (Abnormal) Collected:11/17/13556 Specimen Information:Blood Updated:11/17/13709 SODIUM 134 [...] mL/min/1.73m2 CBC w/auto diff (reflex to manual) [[id number]] (Abnormal) Collected:11/17/13556 Specimen Information:Blood Updated:11/17/13640 WBC 7.8 [...] K/uL BASOPHILS ABS 0.0 K/uL MORPHOLOGY Potassium [[id number]] Collected:11/16/13 1112 Specimen Information:Blood Updated:11/16/13 1133 POTASSIUM 3.6 mmol/L Sputum culture [[id number]] Collected:11/14/13 2055 Specimen Information:Sputum / Tracheal Aspirate Updated:11/16/13 1018 Specimen Description TRACHEAL ASPIRATE Specimen Description Result: Testing performed at [facility];[address] [place] [address];[place] [address] GRAM STAIN GREATER THAN 10 WBCS/LPF GRAM STAIN LESS THAN 10 SEC/LPF GRAM STAIN 2+ GRAM POSITIVE COCCI GRAM STAIN 1+ GRAM POSITIVE RODS GRAM STAIN Result: Testing performed at [address] [address] CULTURE 2+ NORMAL UPPER RESPIRATORY CURTIS CULTURE Result: Testing performed at [facility], [address] [place] [address] REPORT STATUS 11/16/2013 FINAL Acetaminophen level [[id number]] (Abnormal) Collected:11/16/13 0755 Specimen Information:Blood Updated:11/16/13 0828 ACETAMINOPHEN 3.7 (L) ug/mL CBC w/auto diff (reflex to manual) [[id number]] (Abnormal) Collected:11/16/13 0407 Specimen Information:Blood Updated:11/16/13 0503 [...] BASOPHILS ABS 0.0 K/uL Basic metabolic panel [[id number]] (Abnormal) Collected:11/16/13406 Specimen Information:Blood Updated:11/16/13439 SODIUM 143 mmol/L POTASSIUM 3.1 (L) mmol/L CHLORIDE 109 mmol/L CO2 27 mmol/L ANION GAP AGAP 10 mmol/L GLUCOSE 78 mg/dL BUN 7 (L) mg/dL CREATININE 0.77 mg/dL BUN/CREAT 9 CALCIUM 7.8 (L) mg/dL EGFR >60 mL/min/1.73m2 Acetaminophen level [[id number]] (Abnormal) Collected:11/16/13406 Specimen Information:Blood Updated:11/16/13439 ACETAMINOPHEN 4.5 (L) ug/mL Acetaminophen level [[id number]] (Abnormal) Collected:11/16/136 Specimen Information:Blood Updated:11/16/138 ACETAMINOPHEN 5.2 [...] (none) Author Type: Registered Nurse Filed: 11/18/13 9925 Date of Service: 11/18/131805 Status: Signed Dye Weigher Helper: Donita Tucker RN (Registered Nurse) venereal disease control head at bedside, pt seeming uplifted by conversation with project management professor. PCC in and asked t hat this RN not remove cords, call-light cord and other items nearby pt as exceptional needs teacher had con tacted her regarding this RN's discussion that per policy and patients statements indicating that she intended to cause her self harm this RN felt it would be best to move items that s he could use to harm herself away from her after she finished speaking with the project management professor. Th is RN has increased rounding, line of site at RN station and exceptional needs teacher continues to be in pl suk[place]. Pt overall mood continue to be melancholy and tearful, but has not threatened to do chapito f harm since her discussion with the project management professor. Pt encouraged to express her emotions to staf f. Pt complains of diffuse pain, and desire to go to [place]. Pt medicated for pain per DEC. Wi ll continue to monitor closely.DONITA TUCKER RN onver hiren Transaction, Provider Unknown - 11/18/2013 2:59 PM PST Progress Notes by Franky Mcclain at 11/18/13 1321 Author: Franky Mcclain Service: (none) Author Type: Drug Abuse Counselor Filed: 11/18/13 4708 Date of Service: 11/18/13 9670 Status: Signed Dye Weigher Helper: Franky Mcclain (Drug Abuse Counselor) Received pt's request via RN for "someone [...] but now belongs to the "12 step mandaeism" and the [facility] to [facility]. She states [...] Date of Service: 11/18/13 1208 Status: Signed Dye Weigher Helper: Donita Tucker RN (Registered Nurse) Drug Abuse Counselor called to be with patient,, exceptional needs teacher at bedside. Pt indicating desire to harm [...] 0615 Date of Service: 11/18/13612 Status: Signed Dye Weigher Helper: Kala Peña RN (Registered Nurse) Pt slept [...] 11/17/135 Date of Service: 11/17/131823 Status: Signed Dye Weigher Helper: Dick De Santiago RN (Registered Nurse) Pt [...] Date of Service: 11/17/13 1341 Status: Signed Dye Weigher Helper: Sharif Romero (Drug Abuse Counselor) I visited with Pt to assess her [...] Date of Service: 11/17/13 113 Status: Signed Dye Weigher Helper: Emi Donaldson PT (Physical Therapist) 11/17/13 1133 [...] Notes by Emi Donaldson PT at 11/17/13 2399 Author: Emi Donaldson PT Service: (none) Author Type: Physical Therapist Filed: 11/17/13 1312 Date of Service: 11/17/13 1133 Status: Signed Dye Weigher Helper: Emi Donaldson PT (Physical Therapist) 11/17/13 1133 [...] Recommendations SNF Equipment Recommended (pending improvement, lift magneto specialist c/s) Prior Function Level of [place] Modified independent with functional mobility;Modified independent wi [...] Date of Service: 11/17/13 1002 Status: Signed Dye Weigher Helper: Fran Eddy MD (Physician) Related Notes: Original Note by Fran Eddy MD (Physician) filed at 11/17/13 1016 [facility] Service: Hospitalist Progress Note Ronald Kowthrleighann 68 y.o. [id number] 306/306-2 female [facility] Day: LOS: 3 days Patient Summary: .A 68-year-old female with past medical history of depression with m ultiple suicide attempts in the past, history of COPD, which she attributes to paint inhalat ion, history of anxiety, restless leg syndrome, GERD, diabetes mellitus type 2, diet control led, hypothyroidism, who was admitted to [facility] on the November 14 014, when the patient was found to be unresponsive by EMS and thought to be secondary to Fle xeril overdose and alcohol intoxication as her alcohol level was more than 300. The patient was found to be hypertensive, hence she was intubated and brought to the [facility] where she was put on dopamine, [...] . I received her records from [facility]. The patient's 2 sons live in [place], and she does not know the phone [...] Procedure Component Value Units Date/Time Iron panel [[id number]] (Abnormal) Collected:11/17/13556 Specimen Information:Blood Updated:11/17/13717 IRON 31 ug/dL TIBC 155 (L) ug/dL IRON % SAT 20 % Vitamin B12 [[id number]] Collected:11/17/13556 Specimen Information:Blood Updated:11/17/13710 VITAMIN B12 417 pg/mL Folate [[id number]] Collected:11/17/13556 Specimen Information:Blood Updated:11/17/13710 FOLATE 17.7 ng/mL Ferritin [[id number]] Collected:11/17/13556 Specimen Information:Blood Updated:11/17/13710 FERRITIN 140 ng/mL Comprehensive metabolic panel [[id number]] (Abnormal) Collected:11/17/13556 Specimen Information:Blood Updated:11/17/13709 SODIUM 134 [...] mL/min/1.73m2 CBC w/auto diff (reflex to manual) [[id number]] (Abnormal) Collected:11/17/13556 Specimen Information:Blood Updated:11/17/13 06 WBC [...] BASOPHILS ABS 0.0 K/uL MORPHOLOGY Urine culture [[id number]] Collected:11/16/13 0951 Specimen Information:Urine / Urine, Clean Catch Updated:11/16/13 1144 Potassium [[id number]] Collected:11/16/13 1112 Specimen Information:Blood Updated:11/16/13 1133 POTASSIUM 3.6 mmol/L Sputum culture [[id number]] Collected:11/14/13 2055 Specimen Information:Sputum / Tracheal Aspirate Updated:11/16/13 1018 Specimen Description TRACHEAL ASPIRATE Specimen Description Result: Testing performed at [facility];[address] [place] [address];[place] [address] GRAM STAIN GREATER THAN 10 WBCS/LPF GRAM STAIN LESS THAN 10 SEC/LPF GRAM STAIN 2+ GRAM POSITIVE COCCI GRAM STAIN 1+ GRAM POSITIVE RODS GRAM STAIN Result: Testing performed at [address] [address] CULTURE 2+ NORMAL UPPER RESPIRATORY CURTIS CULTURE Result: Testing performed at [facility], [address] [place] [address] REPORT STATUS 11/16/2013 FINAL Acetaminophen level [[id number]] (Abnormal) Collected:11/16/13 0755 Specimen Information:Blood Updated:11/16/13 0828 ACETAMINOPHEN 3.7 (L) ug/mL Magnesium [[id number]] Collected:11/16/13 0407 Specimen Information:Blood Updated:11/16/13 0800 Phosphorus [[id number]] Collected:11/16/13 0407 Specimen Information:Blood Updated:11/16/13 0800 CBC w/auto diff (reflex to manual) [[id number]] (Abnormal) Collected:11/16/13 0407 Specimen Information:Blood Updated:11/16/13 0503 [...] BASOPHILS ABS 0.0 K/uL Basic metabolic panel [[id number]] (Abnormal) Collected:11/16/13 0407 Specimen Information:Blood Updated:11/16/13 0440 SODIUM 143 mmol/L POTASSIUM 3.1 (L) mmol/L CHLORIDE 109 mmol/L CO2 27 mmol/L ANION GAP AGAP 10 mmol/L GLUCOSE 78 mg/dL BUN 7 (L) mg/dL CREATININE 0.77 mg/dL BUN/CREAT 9 CALCIUM 7.8 (L) mg/dL EGFR >60 mL/min/1.73m2 Acetaminophen level [[id number]] (Abnormal) Collected:11/16/13 0407 Specimen Information:Blood Updated:11/16/13 0440 ACETAMINOPHEN 4.5 (L) ug/mL Acetaminophen level [[id number]] (Abnormal) Collected:11/16/13 0036 Specimen Information:Blood Updated:11/16/13 0058 ACETAMINOPHEN 5.2 (L) ug/mL Troponin I [[id number]] (Abnormal) Collected:11/15/13 1602 Specimen Information:Blood Updated:11/15/13 1651 TROPONIN I 0.208 (H) ng/mL CK MB [[id number]] Collected:11/15/13 1602 MMB 3.4 ng/mL Updated:11/15/13 1651 CK-MB Index 2.4 CPK [[id number]] Collected:11/15/13 1602 Specimen Information:Blood Updated:11/15/13 1651 CPK 140 U/L Acetaminophen level [[id number]] Collected:11/15/13 1602 Specimen Information:Blood Updated:11/15/13 1651 ACETAMINOPHEN 10.0 ug/mL POCT glucose [[id number]] (Abnormal) Collected:11/14/13 1920 GLUCOSE,POC SCREEN 154 (H) mg/dL Updated:11/15/13 1317 Acetaminophen level [[id number]] (Abnormal) Collected:11/15/13 1132 Specimen Information:Blood Updated:11/15/13 1207 ACETAMINOPHEN 5.5 (L) ug/mL Basic metabolic panel [[id number]] (Abnormal) Collected:11/15/13 1132 Specimen Information:Blood Updated:11/15/13 1207 SODIUM 144 (H) mmol/L POTASSIUM 3.9 mmol/L CHLORIDE 114 (H) mmol/L CO2 20 (L) mmol/L ANION GAP AGAP 14 mmol/L GLUCOSE 153 (H) mg/dL BUN 8 mg/dL CREATININE 0.92 mg/dL BUN/CREAT 9 CALCIUM 7.4 (L) mg/dL EGFR >60 mL/min/1.73m2 CPK [[id number]] Collected:11/15/13850 Specimen Information:Blood Updated:11/15/1325 CPK 75 U/L Troponin I [[id number]] (Abnormal) Collected:11/15/13850 Specimen Information:Blood Updated:11/15/1325 TROPONIN I 0.325 (H) ng/mL CK MB [[id number]] Collected:11/15/13850 MMB 3.4 ng/mL Updated:11/15/13 0925 CK-MB Index 4.5 Acetaminophen level [[id number]] (Abnormal) Collected:11/15/13850 Specimen Information:Blood Updated:11/15/13 0925 ACETAMINOPHEN 6.3 (L) ug/mL POCT glucose [[id number]] Collected:11/15/13 0033 GLUCOSE,POC SCREEN 86 mg/dL Updated:11/15/13 0759 Osmolality [[id number]] (Abnormal) Collected:11/15/13 0408 Specimen Information:Blood Updated:11/15/13 0701 OSMOLALITY,SERUM 316 (H) mOsm/kg Lactic acid, plasma [[id number]] (Abnormal) Collected:11/15/13 0532 Specimen Information:Blood Updated:11/15/13 0617 LACTIC ACID 2.5 (H) mmol/L CBC w/auto diff (reflex to manual) [[id number]] (Abnormal) Collected:11/15/138 Specimen Information:Blood Updated:11/15/13 0530 WBC [...] BASOPHILS ABS 0.0 K/uL MORPHOLOGY Troponin I [[id number]] (Abnormal) Collected:11/15/13407 Specimen Information:Blood Updated:11/15/13522 TROPONIN I 0.647 (HH) ng/mL CK MB [[id number]] Collected:11/15/13407 MMB 3.3 ng/mL Updated:11/15/13522 CK-MB Index 5.9 CPK [[id number]] Collected:11/15/13407 Specimen Information:Blood Updated:11/15/13521 CPK 56 U/L Comprehensive metabolic panel [[id number]] (Abnormal) Collected:11/15/13407 Specimen Information:Blood Updated:11/15/13521 SODIUM 148 [...] 61 U/L EGFR >60 mL/min/1.73m2 Acetaminophen level [[id number]] (Abnormal) Collected:11/15/13407 Specimen Information:Blood Updated:11/15/13521 ACETAMINOPHEN 9.9 (L) ug/mL POC arterial CG4+ [[id number]] (Abnormal) Collected:11/14/13 2347 pH, Art 7.141 (LL) Updated:11/14/13 2351 POC PCO2 40 mmHg POC p02 283 (H) mmHg POC LACTATE 3.7 (H) mmol/L POC HCO3 14 (L) mmol/L POC TCO2 15 (L) mEq/L POC BASE DEFICIT 15 (H) mmol/L POC S02 100 (H) % POC FIO2 70 % POC COMMENTS Tidal Volume = 500 Lactic acid, plasma [[id number]] (Abnormal) Collected:11/14/132116 Specimen Information:Blood Updated:11/14/132155 LACTIC ACID 3.4 (H) mmol/L Basic metabolic panel [[id number]] (Abnormal) Collected:11/14/132112 Specimen Information:Blood Updated:11/14/132149 SODIUM 143 mmol/L POTASSIUM 3.0 (L) mmol/L CHLORIDE 114 (H) mmol/L CO2 16 (L) mmol/L ANION GAP AGAP 16 mmol/L GLUCOSE 187 (H) mg/dL BUN 10 mg/dL CREATININE 0.79 mg/dL BUN/CREAT 13 CALCIUM 6.5 (L) mg/dL EGFR >60 mL/min/1.73m2 Phosphorus [[id number]] Collected:11/14/132112 Specimen Information:Blood Updated:11/14/132149 PHOSPHORUS 2.4 mg/dL Magnesium [[id number]] Collected:11/14/132112 Specimen Information:Blood Updated:11/14/132149 MAGNESIUM 1.7 mg/dL Hepatic function panel [[id number]] (Abnormal) Collected:11/14/132112 TOTAL PROTEIN 5.6 (L) g/dL Updated:11/14/132149 Albumin 3.1 (L) g/dL TBIL 0.2 mg/dL BILI, DIRECT <0.1 mg/dL ALK PHOS 76 U/L AST 75 (H) U/L ALT 67 (H) U/L Acetaminophen level [[id number]] (Abnormal) Collected:11/14/132112 Specimen Information:Blood Updated:11/14/132149 ACETAMINOPHEN 44.4 (H) ug/mL Ionized calcium,to [facility] [[id number]] (Abnormal) Collected:11/14/132114 Specimen Information:Blood Updated:11/14/132145 CA++ 0.99 (L) mmol/L pH 7.179 (L) aPTT [[id number]] Collected:11/14/132112 Specimen Information:Blood Updated:11/14/132144 APTT 26 seconds Protime-INR [[id number]] Collected:11/14/132112 Specimen Information:Blood Updated:11/14/132144 INR 1.0 MRSA by PCR [[id number]] Collected:11/14/131929 Specimen Information:Nasopharyngeal / Nasopharyngeal Culture Updated:11/14/132130 SOURCE NARES(NOSE) RESULT NEGATIVE CBC w/auto diff (reflex to manual) [[id number]] (Abnormal) Collected:11/14/132112 Specimen Information:Blood Updated:11/14/132130 WBC 12.2 [...] ABS 0.0 K/uL Rapid drug screen, urine [[id number]] (Abnormal) Collected:11/14/131929 Specimen Information:Urine / Urine, Catheter Updated:11/14/132036 THC NEGATIVE PCP NEGATIVE COCAINE NEGATIVE METHAMPHETAMINES NEGATIVE OPIATES PRESUMPTIVE POSITIVE (A) AMPHETAMINE NEGATIVE BENZODIAZEPINE NEGATIVE TRICYCLIC ANTIDEPRESS PRESUMPTIVE POSITIVE (A) METHADONE NEGATIVE BARBITUATES NEGATIVE Urine microscopic only [[id number]] (Abnormal) Collected:11/14/131929 WBC 1-5 /hpf Updated:11/14/132035 RBC 0-2 /hpf EPITHELIAL NONE SEEN /lpf BACTERIA TRACE (A) Urinalysis (reflex to micro) [[id number]] (Abnormal) Collected:11/14/131929 Specimen Information:Urine / Urine, Catheter Updated:11/14/132035 COLOR UA OTHER CLARITY CLEAR Specific [place], UA 1.004 LEUKOCYTE ESTERASE TRACE (A) NITRITE [...] to patient,doing exam and revising records from [facility]. FRAN EDDY MD 11/17/2013 onversion Transactio n, Provider Unknown - 11/17/2013 4:27 AM PST Nurse Progress Note by Jazzy Patel RN at 11/17/137 Author: Jazzy Patel RN Service: (none) Author Type: Registered Nurse Filed: 11/17/13 0429 Date of Service: 11/17/13426 Status: Signed Dye Weigher Helper: Jazzy Patel RN (Registered Nurse) Pt currently sleeping. 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 Unable to score CIWA a s patient [...] Notes by Fran Eddy MD at 11/16/13 7888 Author: Fran Eddy MD Service: Hospitalist Author Type: Physician Filed: 11/17/13 1746 Date of Service: 11/16/13 8650 Status: Signed Dye Weigher Helper: Fran Eddy MD (Physician) Related Notes: Original Note by Fran Eddy MD (Physician) filed at 11/16/13 5852 [facility] Service: Hospitalist Progress Note Ronald Butler 68 y.o. [id number] female [facility] Day: LOS: 2 days Patient Summary: A 68-year-old female with past medical history of depression and his tory of suicidal attempts, COPD per patient but there is no documentation of it, who took an overdose of Flexeril and EMS found her in the bathtub with clothes on, and the patient was taken to [facility] ER where she was found to be unresponsive and hypertensive, an d was intubated and sent to [facility] for further workup and treatment. [...] as tricyclic positive. She was put on CIVT protocol for alcohol withdrawal. Today when I [...] atient told that she lives alone in [place]. She [facility]. She [...] Procedure Component Value Units Date/Time Urine culture [[id number]] Collected:11/16/13 0951 Specimen Information:Urine / Urine, Clean Catch Updated:11/16/13 1144 Potassium [[id number]] Collected:11/16/13 1112 Specimen Information:Blood Updated:11/16/13 1133 POTASSIUM 3.6 mmol/L Sputum culture [[id number]] Collected:11/14/13 2055 Specimen Information:Sputum / Tracheal Aspirate Updated:11/16/13 1018 Specimen Description TRACHEAL ASPIRATE Specimen Description Result: Testing performed at [facility];[address] [place] [address];[place] [address] GRAM STAIN GREATER THAN 10 WBCS/LPF GRAM STAIN LESS THAN 10 SEC/LPF GRAM STAIN 2+ GRAM POSITIVE COCCI GRAM STAIN 1+ GRAM POSITIVE RODS GRAM STAIN Result: Testing performed at [facility], [address] [place] [address] CULTURE 2+ NORMAL UPPER RESPIRATORY CURTIS CULTURE Result: Testing performed at [facility], [address] [place] [address] REPORT STATUS 11/16/2013 FINAL Acetaminophen level [[id number]] (Abnormal) Collected:11/16/13 0755 Specimen Information:Blood Updated:11/16/13 0828 ACETAMINOPHEN 3.7 (L) ug/mL Magnesium [[id number]] Collected:11/16/13406 Specimen Information:Blood Updated:11/16/13 0800 Phosphorus [[id number]] Collected:11/16/13406 Specimen Information:Blood Updated:11/16/13 0800 CBC w/auto diff (reflex to manual) [[id number]] (Abnormal) Collected:11/16/13406 Specimen Information:Blood Updated:11/16/13 0503 WBC [...] BASOPHILS ABS 0.0 K/uL Basic metabolic panel [[id number]] (Abnormal) Collected:11/16/13406 Specimen Information:Blood Updated:11/16/13 044 SODIUM 143 mmol/L POTASSIUM 3.1 (L) mmol/L CHLORIDE 109 mmol/L CO2 27 mmol/L ANION GAP AGAP 10 mmol/L GLUCOSE 78 mg/dL BUN 7 (L) mg/dL CREATININE 0.77 mg/dL BUN/CREAT 9 CALCIUM 7.8 (L) mg/dL EGFR >60 mL/min/1.73m2 Acetaminophen level [[id number]] (Abnormal) Collected:11/16/13406 Specimen Information:Blood Updated:11/16/13 0440 ACETAMINOPHEN 4.5 (L) ug/mL Acetaminophen level [[id number]] (Abnormal) Collected:11/16/13 0036 Specimen Information:Blood Updated:11/16/13 0058 ACETAMINOPHEN 5.2 (L) ug/mL Troponin I [[id number]] (Abnormal) Collected:11/15/13 1602 Specimen Information:Blood Updated:11/15/13 1651 TROPONIN I 0.208 (H) ng/mL CK MB [[id number]] Collected:11/15/13 1602 MMB 3.4 ng/mL Updated:11/15/13 165 CK-MB Index 2.4 CPK [[id number]] Collected:11/15/13 160 Specimen Information:Blood Updated:11/15/13 1651 CPK 140 U/L Acetaminophen level [[id number]] Collected:11/15/13 160 Specimen Information:Blood Updated:11/15/13 1651 ACETAMINOPHEN 10.0 ug/mL POCT glucose [[id number]] (Abnormal) Collected:11/14/13 1920 GLUCOSE,POC SCREEN 154 (H) mg/dL Updated:11/15/13 1317 Acetaminophen level [[id number]] (Abnormal) Collected:11/15/13 1132 Specimen Information:Blood Updated:11/15/13 1207 ACETAMINOPHEN 5.5 (L) ug/mL Basic metabolic panel [[id number]] (Abnormal) Collected:11/15/13 1132 Specimen Information:Blood Updated:11/15/13 1207 SODIUM 144 (H) mmol/L POTASSIUM 3.9 mmol/L CHLORIDE 114 (H) mmol/L CO2 20 (L) mmol/L ANION GAP AGAP 14 mmol/L GLUCOSE 153 (H) mg/dL BUN 8 mg/dL CREATININE 0.92 mg/dL BUN/CREAT 9 CALCIUM 7.4 (L) mg/dL EGFR >60 mL/min/1.73m2 CPK [[id number]] Collected:11/15/1351 Specimen Information:Blood Updated:11/15/13 0925 CPK 75 U/L Troponin I [[id number]] (Abnormal) Collected:11/15/13850 Specimen Information:Blood Updated:11/15/13 0925 TROPONIN I 0.325 (H) ng/mL CK MB [[id number]] Collected:11/15/13850 MMB 3.4 ng/mL Updated:11/15/13 0925 CK-MB Index 4.5 Acetaminophen level [[id number]] (Abnormal) Collected:11/15/13 0851 Specimen Information:Blood Updated:11/15/13 0925 ACETAMINOPHEN 6.3 (L) ug/mL POCT glucose [[id number]] Collected:11/15/13 0033 GLUCOSE,POC SCREEN 86 mg/dL Updated:11/15/13 0759 Osmolality [[id number]] (Abnormal) Collected:11/15/13407 Specimen Information:Blood Updated:11/15/13 0701 OSMOLALITY,SERUM 316 (H) mOsm/kg Lactic acid, plasma [[id number]] (Abnormal) Collected:11/15/13 0532 Specimen Information:Blood Updated:11/15/13 0617 LACTIC ACID 2.5 (H) mmol/L CBC w/auto diff (reflex to manual) [[id number]] (Abnormal) Collected:11/15/13407 Specimen Information:Blood Updated:11/15/13529 WBC 5.5 [...] BASOPHILS ABS 0.0 K/uL MORPHOLOGY Troponin I [[id number]] (Abnormal) Collected:11/15/13407 Specimen Information:Blood Updated:11/15/13522 TROPONIN I 0.647 (HH) ng/mL CK MB [[id number]] Collected:11/15/13407 MMB 3.3 ng/mL Updated:11/15/13522 CK-MB Index 5.9 CPK [[id number]] Collected:11/15/13407 Specimen Information:Blood Updated:11/15/13521 CPK 56 U/L Comprehensive metabolic panel [[id number]] (Abnormal) Collected:11/15/13407 Specimen Information:Blood Updated:11/15/13521 SODIUM 148 [...] 61 U/L EGFR >60 mL/min/1.73m2 Acetaminophen level [[id number]] (Abnormal) Collected:11/15/13 0408 Specimen Information:Blood Updated:11/15/13 0522 ACETAMINOPHEN 9.9 (L) ug/mL POC arterial CG4+ [[id number]] (Abnormal) Collected:11/14/132346 pH, Art 7.141 (LL) Updated:11/14/13 2351 POC PCO2 40 mmHg POC p02 283 (H) mmHg POC LACTATE 3.7 (H) mmol/L POC HCO3 14 (L) mmol/L POC TCO2 15 (L) mEq/L POC BASE DEFICIT 15 (H) mmol/L POC S02 100 (H) % POC FIO2 70 % POC COMMENTS Tidal Volume = 500 Lactic acid, plasma [[id number]] (Abnormal) Collected:11/14/132116 Specimen Information:Blood Updated:11/14/132155 LACTIC ACID 3.4 (H) mmol/L Basic metabolic panel [[id number]] (Abnormal) Collected:11/14/132112 Specimen Information:Blood Updated:11/14/132149 SODIUM 143 mmol/L POTASSIUM 3.0 (L) mmol/L CHLORIDE 114 (H) mmol/L CO2 16 (L) mmol/L ANION GAP AGAP 16 mmol/L GLUCOSE 187 (H) mg/dL BUN 10 mg/dL CREATININE 0.79 mg/dL BUN/CREAT 13 CALCIUM 6.5 (L) mg/dL EGFR >60 mL/min/1.73m2 Phosphorus [[id number]] Collected:11/14/132112 Specimen Information:Blood Updated:11/14/132149 PHOSPHORUS 2.4 mg/dL Magnesium [[id number]] Collected:11/14/132112 Specimen Information:Blood Updated:11/14/132149 MAGNESIUM 1.7 mg/dL Hepatic function panel [[id number]] (Abnormal) Collected:11/14/132112 TOTAL PROTEIN 5.6 (L) g/dL Updated:11/14/132149 Albumin 3.1 (L) g/dL TBIL 0.2 mg/dL BILI, DIRECT <0.1 mg/dL ALK PHOS 76 U/L AST 75 (H) U/L ALT 67 (H) U/L Acetaminophen level [[id number]] (Abnormal) Collected:11/14/132112 Specimen Information:Blood Updated:11/14/132149 ACETAMINOPHEN 44.4 (H) ug/mL Ionized calcium,to [facility] [[id number]] (Abnormal) Collected:11/14/132114 Specimen Information:Blood Updated:11/14/132145 CA++ 0.99 (L) mmol/L pH 7.179 (L) aPTT [[id number]] Collected:11/14/132112 Specimen Information:Blood Updated:11/14/132144 APTT 26 seconds Protime-INR [[id number]] Collected:11/14/132112 Specimen Information:Blood Updated:11/14/132144 INR 1.0 MRSA by PCR [[id number]] Collected:11/14/131929 Specimen Information:Nasopharyngeal / Nasopharyngeal Culture Updated:11/14/132130 SOURCE NARES(NOSE) RESULT NEGATIVE CBC w/auto diff (reflex to manual) [[id number]] (Abnormal) Collected:11/14/132112 Specimen Information:Blood Updated:11/14/132130 WBC 12.2 [...] ABS 0.0 K/uL Rapid drug screen, urine [[id number]] (Abnormal) Collected:11/14/131929 Specimen Information:Urine / Urine, Catheter Updated:11/14/132036 THC NEGATIVE PCP NEGATIVE COCAINE NEGATIVE METHAMPHETAMINES NEGATIVE OPIATES PRESUMPTIVE POSITIVE (A) AMPHETAMINE NEGATIVE BENZODIAZEPINE NEGATIVE TRICYCLIC ANTIDEPRESS PRESUMPTIVE POSITIVE (A) METHADONE NEGATIVE BARBITUATES NEGATIVE Urine microscopic only [[id number]] (Abnormal) Collected:11/14/131929 WBC 1-5 /hpf Updated:11/14/132035 RBC 0-2 /hpf EPITHELIAL NONE SEEN /lpf BACTERIA TRACE (A) Urinalysis (reflex to micro) [[id number]] (Abnormal) Collected:11/14/131929 Specimen Information:Urine / Urine, Catheter Updated:11/14/132035 COLOR UA OTHER CLARITY CLEAR Specific [place], UA 1.004 LEUKOCYTE ESTERASE TRACE (A) NITRITE [...] 1423 Date of Service: 11/16/131421 Status: Signed Dye Weigher Helper: Kassidy Perez RN (Registered Nurse) Pt beginning [...] Date of Service: 11/16/13 1140 Status: Signed Dye Weigher Helper: Jana Taylor Pt given to Kassidy MORAN on 3OP. Pt transferred via wheel chair. onver hiren Transaction, Provider Unknown - 11/16/2013 1:17 AM PST Nurse Progress Note by Sheryl Tomas RN at 11/16/13116 Author: Sheryl Tomas RN Service: (none) Author Type: Registered Nurse Filed: 11/16/13116 Date of Service: 11/16/13116 Status: Signed Dye Weigher Helper: Sheryl Tomas RN (Registered Nurse) Stopped Acetylcysteine drip per order. Sheryl Tomas RN iotr hesham Jana Osbornanne - 11/15/2013 4:28 PM PST Progress Notes by Jana Norris DO at 11/15/131627 Author: Jana Norris DO Service: (none) Author Type: Net Developer Filed: 11/15/131628 Date of Service: 11/15/131627 Status: Signed Dye Weigher Helper: Jana Norris DO (Net Developer) Pt was extubated this am and has [...] 11/15/131408 Date of Service: 11/15/131407 Status: Signed Dye Weigher Helper: Kourtney De Santiago RN (Registered Nurse) Discussed psych consult with Dr. Norris. Received verbal order for psych consult. Notifi wilbert Flores RN, she will arrange for psych consult. When pt is stable for discharge, will need to call [facility] : [phone] to evalulate before disch arging pt. KOURTNEY DE SANTIAGO 11/15/2013 2:09 PM onver hiren Transaction, Provider Unknown - 11/15/2013 9:32 AM PST Progress Notes by Nick Jeffries RN at 11/15/13931 Author: Nick Jeffries RN Service: Wound/Ostomy Care Author Type: Registered Nurse Filed: 11/15/1334 Date of Service: 11/15/13931 Status: Signed Dye Weigher Helper: Nick Jeffries RN (Registered Nurse) Pt seen [...] 0557 Date of Service: 11/15/1357 Status: Signed Dye Weigher Helper: Mat Perez RPH (Pharmacist) Clinical Pharmacy Note: Renal Monitoring Ronald Koben 68 y.o. female Ht Readings from Last 1 Encounters: No data found for Ht Wt Readings from Last 1 Encounters: 11/15/13 69.1 kg (152 lb 5.4 oz) CREATININE Date Value Range Status 11/15/2013 0.69 0.50 - 1.00 mg/dL Final Testing performed at [facility];[address] [place] [address];[place] [address] Creatinine clearance cannot be calculated - Unknown [...] 11/15/131951 Date of Service: 11/14/131856 Status: Signed Dye Weigher Helper: Roseline Sheppard RN (Registered Nurse) Pt arrived [facility] from [facility]. No report called from [place] a nd minimal report received Via [facility]. Pt transferred to bed, ventilator applied to exist ing ETT via RT. Obvious smell of ETOH emitting from PT. No cough, gag or corneals noted. hourly shift RN Gayle in room to assume [...] [place] | | | | | | [id number] | | | | | | | | +--------+---------+ + + + | 04/03/ | Office | Cardiology | Zuleyka Castillo DO | | | 2019 | Visit | | [address] | | | | | | [place] | | | | | | [address] | | | | | | | [...] | EXTERNAL LAB | | performed at [facility];[address] [place] [address];[place] [address] 027 NAP1 BI | | | 027 NAP1 BI PRESUMPTIVE NEGATIVE | | | Detection of 027 NAP1 BI strains of C. difficile is presumptive and | | | for epidemiological purposes and not intended to guide or monitor | | | treatment for C. difficile infections. Testing performed at [facility] | | | [facility];[place] [address] | | + + + + +---------+ [...] EXTERNAL | | | | performed at [facility], [address] | | LAB | | | | [address], | | | | | | [place] [address] | | | | + + + + + + | Red Blood | 3.85Comment: Testing | 3.70 - 5.10 | EXTERNAL | | | Cells | performed at [facility], [address] | M/uL | LAB | | | Counted | [address], | | | | | | [place] [address] | | | | + + + + + + | Hemoglobin | 10.7 (L)Comment: Testing | 11.3 - 15.5 | EXTERNAL | | | | performed at [facility], [address] | g/dL | LAB | | | | [address], | | | | | | [place] [address] | | | | + + + + + + | Hematocrit, | 32.8 (L)Comment: Testing | 34.0 - 46.0 % | EXTERNAL | | | POC | performed at [facility], [address] | | LAB | | | | [address], | | | | | | [place] [address] | | | | + + + + + + | MCV | 85.2Comment: Testing | 80.0 - 100.0 fl | EXTERNAL | | | | performed at [facility], [address] | | LAB | | | | [address], | | | | | | [place] [address] | | | | + + + + + + | MCH | 27.8Comment: Testing | 27.0 - 34.0 pg | EXTERNAL | | | | performed at [facility], [address] | | LAB | | | | [address], | | | | | | [place] [address] | | | | + + + + + + | MCHC | 32.6Comment: Testing | 32.0 - 35.5 | EXTERNAL | | | | performed at [facility], [address] | g/dL | LAB | | | | [address], | | | | | | [place], [place] [address] | | | | + + + + + + | RDW-CV | 38.1Comment: Testing | 37 - 53 fl | EXTERNAL | | | | performed at [facility], [address] | | LAB | | | | [address], | | | | | | [place] [address] | | | | + + + + + + | Platelet | 222Comment: Testing | 150 - 400 K/uL | EXTERNAL | | | Count | performed at [facility], [address] | | LAB | | | Plasma | [address], | | | | | | [place] [address] | | | | + + + + + + | MPV | 7.8Comment: Testing | fl | EXTERNAL | | | | performed at [facility], [address] | | LAB | | | | [address], | | | | | | [place] [address] | | | | + + + + + + | Differentia | AUTOMATEDComment: | | EXTERNAL | | | l Type | Testing performed at | | LAB | | | | [facility], [address] | | | | | | [place] | | | | | | [address] | | | | + + + [...] EXTERNAL | | | | performed at [facility], [address] | | LAB | | | | [address], | | | | | | [place] [address] | | | | + + + [...] EXTERNAL | | | | performed at [facility], [address] | | LAB | | | | [address], | | | | | | [place] [address] | | | | + + + [...] | | | | | [place] [address] | | | | + + + + + + | K | 3.9Comment: Testing | 3.5 - 4.9 | EXTERNAL | | | | performed at [facility], [address] | mmol/L | LAB | | | | [address], | | | | | | [place] [address] | | | | + + + + + + | Cl | 101Comment: Testing | 99 - 109 mmol/L | EXTERNAL | | | | performed at [facility], [address] | | LAB | | | | [address], | | | | | | [place] [address] | | | | + + + + + + | CO2 | 24Comment: Testing | 23 - 32 mmol/L | EXTERNAL | | | | performed at [facility], [address] | | LAB | | | | [address], | | | | | | [place] [address] | | | | + + + + + + | Anion Gap | 12Comment: Testing | 5 - 20 mmol/L | EXTERNAL | | | | performed at [facility], [address] | | LAB | | | | [address], | | | | | | [place] [address] | | | | + + + + + + | Glucose, | 108 (H)Comment: Testing | 65 - 99 mg/dL | EXTERNAL | | | Fasting | performed at [facility], [address] | | LAB | | | | [address], | | | | | | [place] [address] | | | | + + + + + + | BUN | 12Comment: Testing | 8 - 25 mg/dL | EXTERNAL | | | | performed at [facility], [address] | | LAB | | | | [address], | | | | | | [place] [address] | | | | + + + + + + | Creatinine | 0.80Comment: Testing | 0.50 - 1.00 | EXTERNAL | | | | performed at [facility], [address] | mg/dL | LAB | | | | [address], | | | | | | [place] [address] | | | | + + + + + + | BUN/Creatin | 15Comment: Testing | | EXTERNAL | | | ine Ratio | performed at [facility], [address] | | LAB | | | | [address], | | | | | | [place] [address] | | | | + + + + + + | Calcium | 9.2Comment: Testing | 8.5 - 10.2 | EXTERNAL | | | | performed at [facility], [address] | mg/dL | LAB | | | | [facility], | | | | | | [place] [address] | | | | + + + [...] | | | | | | at [facility], [address] | | | | | | [address], | | | | | | [place] [address] | | | | + + + [...] | EXTERNAL LAB | | performed at [facility];[address];[place] [address] | | + + + + +---------+ [...] EXTERNAL | | | | performed at [facility], [address] | | LAB | | | | [address], | | | | | | [place] [address] | | | | + + + + + + | Red Blood | 3.77Comment: Testing | 3.70 - 5.10 | EXTERNAL | | | Cells | performed at [facility], [address] | M/uL | LAB | | | Counted | [address], | | | | | | [place] [address] | | | | + + + + + + | Hemoglobin | 10.8 (L)Comment: Testing | 11.3 - 15.5 | EXTERNAL | | | | performed at [facility], [address] | g/dL | LAB | | | | [address], | | | | | | [place] [address] | | | | + + + + + + | Hematocrit, | 31.9 (L)Comment: Testing | 34.0 - 46.0 % | EXTERNAL | | | POC | performed at [facility], [address] | | LAB | | | | [address], | | | | | | [place] [address] | | | | + + + + + + | MCV | 84.8Comment: Testing | 80.0 - 100.0 fl | EXTERNAL | | | | performed at [facility], [address] | | LAB | | | | [address], | | | | | | [place] [address] | | | | + + + + + + | MCH | 28.8Comment: Testing | 27.0 - 34.0 pg | EXTERNAL | | | | performed at [facility], [address] | | LAB | | | | [address], | | | | | | [place] [address] | | | | + + + + + + | MCHC | 33.9Comment: Testing | 32.0 - 35.5 | EXTERNAL | | | | performed at [facility], [address] | g/dL | LAB | | | | [address], | | | | | | [place] [address] | | | | + + + + + + | RDW-CV | 37.6Comment: Testing | 37 - 53 fl | EXTERNAL | | | | performed at [facility], [address] | | LAB | | | | [address], | | | | | | [place] [address] | | | | + + + + + + | Platelet | 183Comment: Testing | 150 - 400 K/uL | EXTERNAL | | | Count | performed at [facility], [address] | | LAB | | | Plasma | [address], | | | | | | [place] [address] | | | | + + + + + + | MPV | 7.9Comment: Testing | fl | EXTERNAL | | | | performed at [facility], [address] | | LAB | | | | [address], | | | | | | [place] [address] | | | | + + + + + + | Differentia | AUTOMATEDComment: | | EXTERNAL | | | l Type | Testing performed at | | LAB | | | | [facility], [address] | | | | | | [address], [place] | | | | | | [address] | | | | + + + [...] EXTERNAL | | | | performed at [facility], [address] | uIU/mL | LAB | | | | [address], | | | | | | [place] [address] | | | | + + + [...] EXTERNAL | | | | performed at [facility], [address] | | LAB | | | | [address], | | | | | | [place] [address] | | | | + + + [...] EXTERNAL | | | | performed at [facility], [address] | | LAB | | [...] | | | | | [place] [address] | | | | + + + + + + | K | 4.2Comment: Testing | 3.5 - 4.9 | EXTERNAL | | | | performed at [facility], [address] | mmol/L | LAB | | | | [address], | | | | | | [place] [address] | | | | + + + + + + | Cl | 104Comment: Testing | 99 - 109 mmol/L | EXTERNAL | | | | performed at [facility], [address] | | LAB | | | | [address], | | | | | | [place] [address] | | | | + + + + + + | CO2 | 24Comment: Testing | 23 - 32 mmol/L | EXTERNAL | | | | performed at [facility], [address] | | LAB | | | | [address], | | | | | | [place] [address] | | | | + + + + + + | Anion Gap | 11Comment: Testing | 5 - 20 mmol/L | EXTERNAL | | | | performed at [facility], [address] | | LAB | | | | [address], | | | | | | [place] [address] | | | | + + + + + + | Glucose, | 110 (H)Comment: Testing | 65 - 99 mg/dL | EXTERNAL | | | Fasting | performed at [facility], [address] | | LAB | | | | [address], | | | | | | [place] [address] | | | | + + + + + + | BUN | 11Comment: Testing | 8 - 25 mg/dL | EXTERNAL | | | | performed at [facility], [address] | | LAB | | | | [address], | | | | | | [place] [address] | | | | + + + + + + | Creatinine | 0.73Comment: Testing | 0.50 - 1.00 | EXTERNAL | | | | performed at [facility], [address] | mg/dL | LAB | | | | [address], | | | | | | [place] [address] | | | | + + + + + + | BUN/Creatin | 15Comment: Testing | | EXTERNAL | | | ine Ratio | performed at [facility], [address] | | LAB | | | | [address], | | | | | | [place] [address] | | | | + + + + + + | Calcium | 9.0Comment: Testing | 8.5 - 10.2 | EXTERNAL | | | | performed at [facility], [address] | mg/dL | LAB | | | | [address], | | | | | | [place] [address] | | | | + + + [...] [address], | | | | | | [place] [address] | | | | + + + [...] EXTERNAL LAB | | Testing performed at [facility];[address] | | | [facility];[place] [address] GRAM STAIN | | | GREATER THAN 10 WBCS/LPF | | | LESS THAN 10 SEC/LPF | | | NO ORGANISMS SEEN | | | Testing performed at [facility], [address] [place] [address], | | | [place] [address] CULTURE | | | 3+ ZITA GLABRATAAbnormal | | | 2+ ZITA DUBLINIENSISAbnormal | | | 2+ KLEBSIELLA OXYTOCAAbnormal | | | 1+ NORMAL UPPER RESPIRATORY | | | CURTIS Testing | | | performed at [facility], [address] [place] [address], [place] [address] | | | REPORT STATUS 11/23/2013 FINAL [...] EXTERNAL LAB | | Testing performed at [facility];8 | | | [facility];[place] [address] SPECIAL REQUESTS | | | [facility] LINE | | | Testing performed at [facility];[address] [facility];[place] [address] CULTURE | | | NO GROWTH 6 DAYS | | | Testing performed at [facility], [address] | | | [place] [address] REPORT STATUS | | | 11/23/2013 FINAL [...] EXTERNAL LAB | | Testing performed at [facility];[address] | | | [place] [address] SPECIAL REQUESTS | | | REPEAT TEST USING ALTERNATE ASSAYED CONTROL MATERIAL | | | Testing performed at [facility];[address] | | | [facility];[place] [address] CULTURE | | | NO GROWTH 6 DAYS | | | Testing performed at [facility], [address] [facility], | | | [place] [address] REPORT STATUS 11/23/2013 | | | FINAL [...] | Testing performed at | | | [facility];[address] [facility];[place] [address] CULTURE | | | NO GROWTH | | | Testing performed at [facility], [address] [facility], | | | [place] [address] REPORT STATUS | | | 11/18/2013 FINAL [...] | | | | | [place] [address] | | | | + + + + + + | TIBC | 155 (L)Comment: Testing | 260 - 490 ug/dL | EXTERNAL | | | | performed at [facility], [address] | | LAB | | | | [address], | | | | | | [place] [address] | | | | + + + + + + | Iron | 20Comment: Testing | 15 - 50 % | EXTERNAL | | | Saturation | performed at [facility], [address] | | LAB | | | | [address], | | | | | | [place] [address] | | | | + + + [...] | | | | | [place] [address] | | | | + + + + + + | Red Blood | 3.51 (L)Comment: Testing | 3.70 - 5.10 | EXTERNAL | | | Cells | performed at [facility], [address] | M/uL | LAB | | | Counted | [address], | | | | | | [place] [address] | | | | + + + + + + | Hemoglobin | 9.6 (L)Comment: Testing | 11.3 - 15.5 | EXTERNAL | | | | performed at [facility], [address] | g/dL | LAB | | | | [address], | | | | | | [place] [address] | | | | + + + + + + | Hematocrit, | 29.5 (L)Comment: Testing | 34.0 - 46.0 % | EXTERNAL | | | POC | performed at [facility], [address] | | LAB | | | | [address], | | | | | | [place] [address] | | | | + + + + + + | MCV | 84.3Comment: Testing | 80.0 - 100.0 fl | EXTERNAL | | | | performed at [facility], [address] | | LAB | | | [address], | | | | | | [place] [address] | | | | + + + + + + | MCH | 27.5Comment: Testing | 27.0 - 34.0 pg | EXTERNAL | | | | performed at [facility], [address] | | LAB | | | | [address], | | | | | | [place] [address] | | | | + + + + + + | MCHC | 32.6Comment: Testing | 32.0 - 35.5 | EXTERNAL | | | | performed at [facility], [address] | g/dL | LAB | | | | [address], | | | | | | [place] [address] | | | | + + + + + + | RDW-CV | 36.3 (L)Comment: Testing | 37 - 53 fl | EXTERNAL | | | | performed at [facility], [address] | | LAB | | | | [address], | | | | | | [place] [address] | | | | + + + + + + | Platelet | 151Comment: Testing | 150 - 400 K/uL | EXTERNAL | | | Count | performed at [facility], [address] | | LAB | | | Plasma | [address], | | | | | | [place] [address] | | | | + + + [...] [address] | | | | | | [address], [place] | | | | | | [address] | | | | + + + [...] EXTERNAL | | | | performed at [facility], [address] | | LAB | | | | [address], | | | | | | [place] [address] | | | | + + + [...] | | | External | performed at [facility], [address] | | LAB | | | | [address], | | | | | | [place] [address] | | | | + + + [...] | | | B-12 | performed at [facility], [address] | pg/mL | LAB | | | | [address], | | | | | | [place] [address] | | | | + + + [...] EXTERNAL | | | | performed at [facility], [address] | mmol/L | LAB | | | | [address], | | | | | | [place] [address] | | | | + + + + + + | K | 3.8Comment: Testing | 3.5 - 4.9 | EXTERNAL | | | | performed at [facility], [address] | mmol/L | LAB | | | | [address], | | | | | | [place] [address] | | | | + + + + + + | Cl | 103Comment: Testing | 99 - 109 mmol/L | EXTERNAL | | | | performed at [facility], [address] | | LAB | | | | [address], | | | | | | [place] [address] | | | | + + + + + + | CO2 | 28Comment: Testing | 23 - 32 mmol/L | EXTERNAL | | | | performed at [facility], [address] | | LAB | | | | [address], | | | | | | [place] [address] | | | | + + + + + + | Anion Gap | 7Comment: Testing | 5 - 20 mmol/L | EXTERNAL | | | | performed at [facility], [address] | | LAB | | | | [address], | | | | | | [place] [address] | | | | + + + + + + | Glucose, | 131 (H)Comment: Testing | 65 - 99 mg/dL | EXTERNAL | | | Fasting | performed at [facility], [address] | | LAB | | | | [address], | | | | | | [place] [address] | | | | + + + + + + | BUN | 7 (L)Comment: Testing | 8 - 25 mg/dL | EXTERNAL | | | | performed at [facility], [address] | | LAB | | | | [address], | | | | | | [place] [address] | | | | + + + + + + | Creatinine | 0.61Comment: Testing | 0.50 - 1.00 | EXTERNAL | | | | performed at [facility], [address] | mg/dL | LAB | | | | [address], | | | | | | [place] [address] | | | | + + + + + + | BUN/Creatin | 11Comment: Testing | | EXTERNAL | | | ine Ratio | performed at [facility], [address] | | LAB | | | | [address], | | | | | | [place] [address] | | | | + + + + + + | Calcium | 8.5Comment: Testing | 8.5 - 10.2 | EXTERNAL | | | | performed at [facility], [address] | mg/dL | LAB | | | | [address], | | | | | | [place] [address] | | | | + + + + + + | Protein, | 5.2 (L)Comment: Testing | 6.3 - 8.2 g/dL | EXTERNAL | | | Total | performed at [facility], [address] | | LAB | | | | [address], | | | | | | [place] [address] | | | | + + + + + + | Albumin | 3.1 (L)Comment: Testing | 3.3 - 4.8 g/dL | EXTERNAL | | | | performed at [facility], [address] | | LAB | | | | [address], | | | | | | [place] [address] | | | | + + + + + + | Globulin | 2.1Comment: Testing | 1.3 - 4.9 g/dL | EXTERNAL | | | | performed at [facility], [address] | | LAB | | | | [address], | | | | | | [place] [address] | | | | + + + + + + | A/G Ratio | 1.5Comment: Testing | 1.0 - 2.4 | EXTERNAL | | | | performed at [facility], [address] | | LAB | | | | [address], | | | | | | [place] [address] | | | | + + + + + + | Bilirubin | 0.6Comment: Testing | 0.1 - 1.5 mg/dL | EXTERNAL | | | Total | performed at [facility], [address] | | LAB | | | | [address], | | | | | | [place] [address] | | | | + + + + + + | ALP, | 48Comment: Testing | 35 - 115 U/L | EXTERNAL | | | External | performed at [facility], [address] | | LAB | | | | [address], | | | | | | [place] [address] | | | | + + + + + + | AST | 19Comment: Testing | 10 - 45 U/L | EXTERNAL | | | | performed at [facility], [address] | | LAB | | | | [address], | | | | | | [place] [address] | | | | + + + + + + | ALT | 21Comment: Testing | 10 - 65 U/L | EXTERNAL | | | | performed at [facility], [address] | | LAB | | | | [address], | | | | | | [place] [address] | | | | + + + [...] | | | | | [place] [address] | | | | + + + [...] EXTERNAL | | | | performed at [facility];[address] | mmol/L | LAB | | | | [address];[place], [place] | | | | | | [address] | | | | + + [...] | Testing performed at | | | [facility];[address] [facility];[place] [address] CULTURE | | | NO GROWTH | | | Testing performed at [facility], [address] [facility], | | | [place] [address] REPORT STATUS | | | 11/17/2013 FINAL [...] | | EN LEVEL | performed at [facility];[address] | ug/mL | LAB | | | | [address];[place] | | | | | | [address] | | | | + + + [...] EXTERNAL | | | | performed at [facility], [address] | | LAB | | | | [address], | | | | | | [place] [address] | | | | + + + + + + | Red Blood | 3.54 (L)Comment: Testing | 3.70 - 5.10 | EXTERNAL | | | Cells | performed at [facility], [address] | M/uL | LAB | | | Counted | [address], | | | | | | [place] [address] | | | | + + + + + + | Hemoglobin | 10.1 (L)Comment: Testing | 11.3 - 15.5 | EXTERNAL | | | | performed at [facility], [address] | g/dL | LAB | | | | [address], | | | | | | [place] [address] | | | | + + + + + + | Hematocrit, | 29.5 (L)Comment: Testing | 34.0 - 46.0 % | EXTERNAL | | | POC | performed at [facility], [address] | | LAB | | | | [address], | | | | | | [place] [address] | | | | + + + + + + | MCV | 83.4Comment: Testing | 80.0 - 100.0 fl | EXTERNAL | | | | performed at [facility], [address] | | LAB | | | | [address], | | | | | | [place] [address] | | | | + + + + + + | MCH | 28.7Comment: Testing | 27.0 - 34.0 pg | EXTERNAL | | | | performed at [facility], [address] | | LAB | | | | [address], | | | | | | [place] [address] | | | | + + + + + + | MCHC | 34.3Comment: Testing | 32.0 - 35.5 | EXTERNAL | | | | performed at [facility], [address] | g/dL | LAB | | | | [address], | | | | | | [place] [address] | | | | + + + + + + | RDW-CV | 37.6Comment: Testing | 37 - 53 fl | EXTERNAL | | | | performed at [facility], [address] | | LAB | | | | [address], | | | | | | [place] [address] | | | | + + + + + + | Platelet | 176Comment: Testing | 150 - 400 K/uL | EXTERNAL | | | Count | performed at [facility], [address] | | LAB | | | Plasma | [address], | | | | | | [place] [address] | | | | + + + + + + | MPV | 7.8Comment: Testing | fl | EXTERNAL | | | | performed at [facility], [address] | | LAB | | | | [address], | | | | | | [place] [address] | | | | + + + + + + | Differentia | AUTOMATEDComment: | | EXTERNAL | | | l Type | Testing performed at | | LAB | | | | [facility], [address] | | | | | | [place] | | | | | | [address] | | | | + + + [...] EXTERNAL | | | | performed at [facility] | | LAB | | | | [address] [facility];[place], [place] | | | | | | [address] | | | | + + + [...] EXTERNAL | | | | performed at [facility];[address] | | LAB | | | | [address];[place] | | | | | | [address] | | | | + + + [...] | | EN LEVEL | performed at [facility];[address] | ug/mL | LAB | | | | [address];[place], [place] | | | | | | [address] | | | | + + + [...] EXTERNAL | | | | performed at [facility];[address] | mmol/L | LAB | | | | [address];[place] | | | | | | [address] | | | | + + + + + + | K | 3.1 (L)Comment: Testing | 3.5 - 4.9 | EXTERNAL | | | | performed at [facility];[address] | mmol/L | LAB | | | | [address];[place] | | | | | | [address] | | | | + + + + + + | Cl | 109Comment: Testing | 99 - 109 mmol/L | EXTERNAL | | | | performed at [facility];[address] | | LAB | | | | [address];[place] | | | | | | [address] | | | | + + + + + + | CO2 | 27Comment: Testing | 23 - 32 mmol/L | EXTERNAL | | | | performed at [facility];[address] | | LAB | | | | [address];[place] | | | | | | [address] | | | | + + + + + + | Anion Gap | 10Comment: Testing | 5 - 20 mmol/L | EXTERNAL | | | | performed at [facility];[address] | | LAB | | | | [address];[place] | | | | | | [address] | | | | + + + + + + | Glucose, | 78Comment: Testing | 65 - 99 mg/dL | EXTERNAL | | | Fasting | performed at [facility];[address] | | LAB | | | | [address];[place] | | | | | | [address] | | | | + + + + + + | BUN | 7 (L)Comment: Testing | 8 - 25 mg/dL | EXTERNAL | | | | performed at [facility];[address] | | LAB | | | | [address];[place] | | | | | | [address] | | | | + + + + + + | Creatinine | 0.77Comment: Testing | 0.50 - 1.00 | EXTERNAL | | | | performed at [facility];[address] | mg/dL | LAB | | | | [address];[place] | | | | | | [address] | | | | + + + + + + | BUN/Creatin | 9Comment: Testing | | EXTERNAL | | | ine Ratio | performed at [facility];[address] | | LAB | | | | [address];[place] | | | | | | [address] | | | | + + + + + + | Calcium | 7.8 (L)Comment: Testing | 8.5 - 10.2 | EXTERNAL | | | | performed at [facility];[address] | mg/dL | LAB | | | | [address];[place], [place] | | | | | | [address] | | | | + + + [...] | | | | | | at [facility];[address] [facility] | | | | | | Blvd;[place] [address] | | | | + + + [...] | | EN LEVEL | performed at [facility];[address] | ug/mL | LAB | | | | [address];[place], [place] | | | | | | [address] | | | | + + + [...] EXTERNAL | | | | performed at [facility];[address] | | LAB | | | | [address];[place], [place] | | | | | | [address] | | | | + + + [...] | | | | | | ACUTE [facility] Testing | | | | | | performed at [facility];[address] | | | | | | [address];[place], [place] | | | | | | [address] | | | | + + + [...] EXTERNAL | | | | performed at [facility];[address] | | LAB | | | | [address];[place], [place] | | | | | | [address] | | | | + + + [...] | | EN LEVEL | performed at [facility];[address] | ug/mL | LAB | | | | [address];[place], [place] | | | | | | [address] | | | | + + + [...] TR | | | Vmax: 2.44 m/s Mortgage Closing Clerk: Authenticated by: Finesse Nunez | | | [...] 23.26 cmAVA Vmax: 3.14 cm2AVA (VTI): 2.90 lw7PFEM Dopp: | | 4.57 l/erzm7BQRR Dopp: 7.95 l/minHR: 117.60 BPMLVOT maxP.36 mmHgLVOT [...] maxP.88 mmHgTR Vmax: | | 2.44 m/s Mortgage Closing Clerk: ABAuthenticated by: Finesse MCCULLOUGHeport Date/Time: 11-15-2013 | [...] |TR Vmax: 2.44 m/s | | | |Mortgage Closing Clerk: AB | |Authenticated by: Finesse Nunez MD [...] | | EN LEVEL | performed at [facility];[address] | ug/mL | LAB | | | | [address];[place] | | | | | | [address] | | | | + + + [...] EXTERNAL | | | | performed at [facility];888 | mmol/L | LAB | | | | [address] [facility];[place], [place] | | | | | | [address] | | | | + + + + + + | K | 3.9Comment: Testing | 3.5 - 4.9 | EXTERNAL | | | | performed at [facility];[address] | mmol/L | LAB | | | | [address];[place] | | | | | | [address] | | | | + + + + + + | Cl | 114 (H)Comment: Testing | 99 - 109 mmol/L | EXTERNAL | | | | performed at [facility];888 | | LAB | | | | [address];[place] | | | | | | [address] | | | | + + + + + + | CO2 | 20 (L)Comment: Testing | 23 - 32 mmol/L | EXTERNAL | | | | performed at [facility];888 | | LAB | | | | [address];[place] | | | | | | [address] | | | | + + + + + + | Anion Gap | 14Comment: Testing | 5 - 20 mmol/L | EXTERNAL | | | | performed at [facility];888 | | LAB | | | | [address];[place] | | | | | | [address] | | | | + + + + + + | Glucose, | 153 (H)Comment: Testing | 65 - 99 mg/dL | EXTERNAL | | | Fasting | performed at [facility];888 | | LAB | | | | [address];[place] | | | | | | [address] | | | | + + + + + + | BUN | 8Comment: Testing | 8 - 25 mg/dL | EXTERNAL | | | | performed at [facility];888 | | LAB | | | | [address];[place] | | | | | | [address] | | | | + + + + + + | Creatinine | 0.92Comment: Testing | 0.50 - 1.00 | EXTERNAL | | | | performed at [facility];888 | mg/dL | LAB | | | | [address];[place] | | | | | | [address] | | | | + + + + + + | BUN/Creatin | 9Comment: Testing | | EXTERNAL | | | ine Ratio | performed at [facility];888 | | LAB | | | | [address];[place] | | | | | | [address] | | | | + + + + + + | Calcium | 7.4 (L)Comment: Testing | 8.5 - 10.2 | EXTERNAL | | | | performed at [facility];888 | mg/dL | LAB | | | | [address];[place] | | | | | | [address] | | | | + + + [...] | | | | | | at [facility];[address] | | | [address];[place] [address] | | | | + + + [...] EXTERNAL | | | | performed at [facility];888 | | LAB | | | | [address];[place], [place] | | | | | | [address] | | | | + + + [...] | | | | | | ACUTE [facility] Testing | | | | | | performed at [facility];88 | | | | | | [address];[place], [place] | | | | | | [address] | | | | + + + [...] EXTERNAL | | | | performed at [facility];[address] | | LAB | | | | [address];[place], [place] | | | | | | [address] | | | | + + + [...] | | EN LEVEL | performed at [facility];888 | ug/mL | LAB | | | | [address];[place], [place] | | | | | | [address] | | | | + + + [...] + + | Historically converted procedure from [facility] environment | EXTERNAL LAB | [...] EXTERNAL | | | | performed at [facility];888 | mmol/L | LAB | | | | [address];[place], [place] | | | | | | [address] | | | | + + + [...] EXTERNAL | | | | performed at [facility];888 | | LAB | | | | [address];[place], [place] | | | | | | [address] | | | | + + + [...] | | | | | | ACUTE [facility] CKTRP PHONED TO | | | | | | ICU GAYLE N AT 0540 BY | | | | | | LJREAD BACK RESULTS | | | | | | VERIFIEDTesting | | | | | | performed at [facility];888 | | | | | | [address];[place] | | | | | | [address] | | | | + + + [...] EXTERNAL | | | | performed at [facility], [address] | | LAB | | | | [address], | | | | | | [place] [address] | | | | + + + + + + | Red Blood | 3.94Comment: Testing | 3.70 - 5.10 | EXTERNAL | | | Cells | performed at [facility], [address] | M/uL | LAB | | | Counted | [address], | | | | | | [place] [address] | | | | + + + + + + | Hemoglobin | 10.9 (L)Comment: Testing | 11.3 - 15.5 | EXTERNAL | | | | performed at [facility], [address] | g/dL | LAB | | | | [address], | | | | | | [place] [address] | | | | + + + + + + | Hematocrit, | 33.7 (L)Comment: Testing | 34.0 - 46.0 % | EXTERNAL | | | POC | performed at [facility], [address] | | LAB | | | | [address], | | | | | | [place] [address] | | | | + + + + + + | MCV | 85.6Comment: Testing | 80.0 - 100.0 fl | EXTERNAL | | | | performed at [facility], [address] | | LAB | | | | [address], | | | | | | [place] [address] | | | | + + + + + + | MCH | 27.7Comment: Testing | 27.0 - 34.0 pg | EXTERNAL | | | | performed at [facility], [address] | | LAB | | | | [address], | | | | | | [place] [address] | | | | + + + + + + | MCHC | 32.3Comment: Testing | 32.0 - 35.5 | EXTERNAL | | | | performed at [facility], [address] | g/dL | LAB | | | | [address], | | | | | | [place] [address] | | | | + + + + + + | RDW-CV | 37.6Comment: Testing | 37 - 53 fl | EXTERNAL | | | | performed at [facility], [address] | | LAB | | | | [address], | | | | | | [place] [address] | | | | + + + + + + | Platelet | 196Comment: Testing | 150 - 400 K/uL | EXTERNAL | | | Count | performed at [facility], [address] | | LAB | | | Plasma | [address], | | | | | | [place] [address] | | | | + + + + + + | MPV | 7.3Comment: Testing | fl | EXTERNAL | | | | performed at [facility], [address] | | LAB | | | | [address], | | | | | | [place] [address] | | | | + + + + + + | Differentia | AUTOMATEDComment: | | EXTERNAL | | | l Type | Testing performed at | | LAB | | | | [facility], [address] | | | | | | [place] | | | | | | [address] | | | | + + + [...] | | | Serum | performed at [facility];[address] | mOsm/kg | LAB | | | | [address];[place], [place] | | | | | | [address] | | | | + + + [...] EXTERNAL | | | | performed at [facility];88 | | LAB | | | | [address];[place] | | | | | | [address] | | | | + + + [...] | | EN LEVEL | performed at [facility];[address] | ug/mL | LAB | | | | [address];[place], [place] | | | | | | [address] | | | | + + + [...] EXTERNAL | | | | performed at [facility];[address] | mmol/L | LAB | | | | [address];[place] | | | | | | [address] | | | | + + + + + + | K | 3.2 (L)Comment: Testing | 3.5 - 4.9 | EXTERNAL | | | | performed at [facility];888 | mmol/L | LAB | | | | [address];[place] | | | | | | [address] | | | | + + + + + + | Cl | 117 (H)Comment: Testing | 99 - 109 mmol/L | EXTERNAL | | | | performed at [facility];[address] | | LAB | | | | [address];[place] | | | | | | [address] | | | | + + + + + + | CO2 | 13 (LL)Comment: CO2 | 23 - 32 mmol/L | EXTERNAL | | | | PHONED TO AIDEE Butt AT | | LAB | | | | 0520 BY LJREAD BACK | | | | | | RESULTS VERIFIEDTesting | | | | | | performed at [facility];[address] | | | | | | [address];[place] | | | | | | [address] | | | | + + + + + + | Anion Gap | 20Comment: Testing | 5 - 20 mmol/L | EXTERNAL | | | | performed at [facility];[address] | | LAB | | | | [address];[place] | | | | | | [address] | | | | + + + + + + | Glucose, | 130 (H)Comment: Testing | 65 - 99 mg/dL | EXTERNAL | | | Fasting | performed at [facility];[address] | | LAB | | | | [address];[place] | | | | | | [address] | | | | + + + + + + | BUN | 8Comment: Testing | 8 - 25 mg/dL | EXTERNAL | | | | performed at [facility];[address] | | LAB | | | | [address];[place] | | | | | | [address] | | | | + + + + + + | Creatinine | 0.69Comment: Testing | 0.50 - 1.00 | EXTERNAL | | | | performed at [facility];[address] | mg/dL | LAB | | | | [address];[place] | | | | | | [address] | | | | + + + + + + | BUN/Creatin | 12Comment: Testing | | EXTERNAL | | | ine Ratio | performed at [facility];[address] | | LAB | | | | [address];[place] | | | | | | [address] | | | | + + + + + + | Calcium | 6.7 (L)Comment: Testing | 8.5 - 10.2 | EXTERNAL | | | | performed at [facility];[address] | mg/dL | LAB | | | | [address];[place] | | | | | | [address] | | | | + + + + + + | Protein, | 5.2 (L)Comment: Testing | 6.3 - 8.2 g/dL | EXTERNAL | | | Total | performed at [facility];[address] | | LAB | | | | [address];[place] | | | | | | [address] | | | | + + + + + + | Albumin | 3.3Comment: Testing | 3.3 - 4.8 g/dL | EXTERNAL | | | | performed at [facility];[address] | | LAB | | | | [address];[place] | | | | | | [address] | | | | + + + + + + | Globulin | 1.9Comment: Testing | 1.3 - 4.9 g/dL | EXTERNAL | | | | performed at [facility];[address] | | LAB | | | | [address];[place] | | | | | | [address] | | | | + + + + + + | A/G Ratio | 1.8Comment: Testing | 1.0 - 2.4 | EXTERNAL | | | | performed at [facility];[address] | | LAB | | | | [address];[place] | | | | | | [address] | | | | + + + + + + | Bilirubin | 0.2Comment: Testing | 0.1 - 1.5 mg/dL | EXTERNAL | | | Total | performed at [facility];[address] | | LAB | | | | [address];[place] | | | | | | [address] | | | | + + + + + + | ALP, | 47Comment: Testing | 35 - 115 U/L | EXTERNAL | | | External | performed at [facility];[address] | | LAB | | | | [address];[place] | | | | | | [address] | | | | + + + + + + | AST | 49 (H)Comment: Testing | 10 - 45 U/L | EXTERNAL | | | | performed at [facility];[address] | | LAB | | | | [address];[place] | | | | | | [address] | | | | + + + + + + | ALT | 61Comment: Testing | 10 - 65 U/L | EXTERNAL | | | | performed at [facility];[address] | | LAB | | | | [address];[place] | | | | | | [address] | | | | + + + [...] | | | | | | at [facility];[address];[place] [address] | | | | + + + [...] | | | Fingerstick | performed at [facility];[address] | | LAB | | | | [address];[place] | | | | | | [address] | | | | + + + [...] + + | Historically converted procedure from [facility] environment | EXTERNAL LAB | [...] | | LAB | | | | [facility];[address];[place] [address] | | | | + + + + + + | PCO2 ART | 40Comment: Testing | 35 - 45 mmHg | EXTERNAL | | | | performed at [facility];[address] | | LAB | | | | [address];[place] | | | | | | [address] | | | | + + + + + + | PO2 ART | 283 (H)Comment: Testing | 80 - 105 mmHg | EXTERNAL | | | | performed at [facility];[address] | | LAB | | | | [address];[place] | | | | | | [address] | | | | + + + + + + | Lactate, | 3.7 (H)Comment: Testing | 0.36 - 1.25 | EXTERNAL | | | Arterial | performed at [facility];[address] | mmol/L | LAB | | | | [address];[place] | | | | | | [address] | | | | + + + + + + | HCO3 ART | 14 (L)Comment: Testing | 22 - 26 mmol/L | EXTERNAL | | | | performed at [facility];[address] | | LAB | | | | [address];[place] | | | | | | [address] | | | | + + + + + + | POC | 15 (L)Comment: Testing | 23 - 27 mEq/L | EXTERNAL | | | APPEARANCE | performed at [facility];[address] | | LAB | | | UA | [address];[place] | | | | | | [address] | | | | + + + + + + | Base | 15 (H)Comment: Testing | 0.0 - 2.0 | EXTERNAL | | | deficit | performed at [facility];888 | mmol/L | LAB | | | | [address];[place] | | | | | | [address] | | | | + + + + + + | O2 SAT ART | 100 (H)Comment: Testing | 95 - 98 % | EXTERNAL | | | | performed at [facility];[address] | | LAB | | | | [address];[place] | | | | | | [address] | | | | + + + + + + | FiO2, POC | 70Comment: Testing | % | EXTERNAL | | | | performed at [facility];[address] | | LAB | | | | [address];[place] | | | | | | [address] | | | | + + + + + + | Comment, | Tidal Volume = | | EXTERNAL | | | POC | 500Comment: Peep = 5Resp | | LAB | | | | Rate = 15Testing | | | | | | performed at [facility];[address] | | | | | | [facility];[place], [place] | | | | | | [address] | | | | + + + [...] EXTERNAL | | | | performed at [facility];[address] | mmol/L | LAB | | | | [address];[place], [place] | | | | | | [address] | | | | + + + [...] | | | (Calc) | performed at [facility];888 | mmol/L | LAB | | | | [address];[place] | | | | | | [address] | | | | + + + + + + | pH, Bld | 7.179 (L)Comment: | 7.300 - 7.450 | EXTERNAL | | | | Testing performed at | | LAB | | | | [facility];[address];[place] [address] | | | | + + + [...] | | | Patient | performed at [facility] | | LAB | | | | [address];[place] | | | | | | [address] | | | | + + + [...] | | | | | performed at [facility];88 | | | | | | [facility];[place], [place] | | | | | | [address] | | | | + + + [...] EXTERNAL | | | | performed at [facility];[address] | | LAB | | | | [address];[place], [place] | | | | | | [address] | | | | + + + + + + | Red Blood | 4.41Comment: Testing | 3.70 - 5.10 | EXTERNAL | | | Cells | performed at [facility];[address] | M/uL | LAB | | | Counted | [address];[place] | | | | | | [address] | | | | + + + + + + | Hemoglobin | 12.7Comment: Testing | 11.3 - 15.5 | EXTERNAL | | | | performed at [facility];888 | g/dL | LAB | | | | [address];[place] | | | | | | [address] | | | | + + + + + + | Hematocrit, | 37.4Comment: Testing | 34.0 - 46.0 % | EXTERNAL | | | POC | performed at [facility];[address] | | LAB | | | | [address];[place] | | | | | | [address] | | | | + + + + + + | MCV | 84.7Comment: Testing | 80.0 - 100.0 fl | EXTERNAL | | | | performed at [facility];[address] | | LAB | | | | [address];[place] | | | | | | [address] | | | | + + + + + + | MCH | 28.8Comment: Testing | 27.0 - 34.0 pg | EXTERNAL | | | | performed at [facility];[address] | | LAB | | | | [address];[place] | | | | | | [address] | | | | + + + + + + | MCHC | 34.0Comment: Testing | 32.0 - 35.5 | EXTERNAL | | | | performed at [facility];888 | g/dL | LAB | | | | [address];[place] | | | | | | [address] | | | | + + + + + + | RDW-CV | 37.2Comment: Testing | 37 - 53 fl | EXTERNAL | | | | performed at [facility];[address] | | LAB | | | | [address];[place] | | | | | | [address] | | | | + + + + + + | Platelet | 296Comment: Testing | 150 - 400 K/uL | EXTERNAL | | | Count | performed at [facility];[address] | | LAB | | | Plasma | [address];[place] | | | | | | [address] | | | | + + + + + + | MPV | 7.2Comment: Testing | fl | EXTERNAL | | | | performed at [facility];[address] | | LAB | | | | [address];[place] | | | | | | [address] | | | | + + + + + + | Differentia | AUTOMATEDComment: | | EXTERNAL | | | l Type | Testing performed at | | LAB | | | | [facility];[address];[place] [address] | | | | + + + [...] EXTERNAL | | | | performed at [facility];[address] | | LAB | | | | [address];[place], [place] | | | | | | [address] | | | | + + + [...] EXTERNAL | | | | performed at [facility];[address] | | LAB | | | | [address];[place], [place] | | | | | | [address] | | | | + + + [...] | | EN LEVEL | performed at [facility];888 | ug/mL | LAB | | | | [address];[place] | | | | | | [address] | | | | + + + [...] | | | Total | performed at [facility];[address] | | LAB | | | | [address];[place] | | | | | | [address] | | | | + + + + + + | Albumin | 3.1 (L)Comment: Testing | 3.3 - 4.8 g/dL | EXTERNAL | | | | performed at [facility];[address] | | LAB | | | | [address];[place] | | | | | | [address] | | | | + + + + + + | Bilirubin | 0.2Comment: Testing | 0.1 - 1.5 mg/dL | EXTERNAL | | | Total | performed at [facility];[address] | | LAB | | | | [address];[place] | | | | | | [address] | | | | + + + + + + | Bilirubin | <0.1Comment: Testing | 0.0 - 0.3 mg/dL | EXTERNAL | | | Direct | performed at [facility];[address] | | LAB | | | | [address];[place] | | | | | | [address] | | | | + + + + + + | ALP, | 76Comment: Testing | 35 - 115 U/L | EXTERNAL | | | External | performed at [facility];[address] | | LAB | | | | [address];[place] | | | | | | [address] | | | | + + + + + + | AST | 75 (H)Comment: Testing | 10 - 45 U/L | EXTERNAL | | | | performed at [facility];[address] | | LAB | | | | [address];[place] | | | | | | [address] | | | | + + + + + + | ALT | 67 (H)Comment: Testing | 10 - 65 U/L | EXTERNAL | | | | performed at [facility];[address] | | LAB | | | | [address];[place] | | | | | | [address] | | | | + + + [...] EXTERNAL | | | | performed at [facility];888 | mmol/L | LAB | | | | [address];[place] | | | | | | [address] | | | | + + + + + + | K | 3.0 (L)Comment: Testing | 3.5 - 4.9 | EXTERNAL | | | | performed at [facility];888 | mmol/L | LAB | | | | [address];[place] | | | | | | [address] | | | | + + + + + + | Cl | 114 (H)Comment: Testing | 99 - 109 mmol/L | EXTERNAL | | | | performed at [facility];[address] | | LAB | | | | [address];[place] | | | | | | [address] | | | | + + + + + + | CO2 | 16 (L)Comment: Testing | 23 - 32 mmol/L | EXTERNAL | | | | performed at [facility];[address] | | LAB | | | | [address];[place] | | | | | | [address] | | | | + + + + + + | Anion Gap | 16Comment: Testing | 5 - 20 mmol/L | EXTERNAL | | | | performed at [facility];[address] | | LAB | | | | [address];[place] | | | | | | [address] | | | | + + + + + + | Glucose, | 187 (H)Comment: Testing | 65 - 99 mg/dL | EXTERNAL | | | Fasting | performed at [facility];[address] | | LAB | | | | [address];[place] | | | | | | [address] | | | | + + + + + + | BUN | 10Comment: Testing | 8 - 25 mg/dL | EXTERNAL | | | | performed at [facility];[address] | | LAB | | | | [address];[place] | | | | | | [address] | | | | + + + + + + | Creatinine | 0.79Comment: Testing | 0.50 - 1.00 | EXTERNAL | | | | performed at [facility];[address] | mg/dL | LAB | | | | [address];[place] | | | | | | [address] | | | | + + + + + + | BUN/Creatin | 13Comment: Testing | | EXTERNAL | | | ine Ratio | performed at [facility];[address] | | LAB | | | | [address];[place] | | | | | | [address] | | | | + + + + + + | Calcium | 6.5 (L)Comment: Testing | 8.5 - 10.2 | EXTERNAL | | | | performed at [facility];888 | mg/dL | LAB | | | | [address];[place] | | | | | | [address] | | | | + + + [...] | | | | | | at [facility];[address] [place] [address] | | | | | | Bl;[place] [address] | | | | + + + [...] Conversion - 06/15/2019 1:42 PM PDT RONALD [id number] years | | FemaleCT HEAD WO CONTRAST11/14/2013 [...] | Testing performed at | | | [facility];[address] [facility];[place] [address] GRAM STAIN | | | GREATER THAN 10 WBCS/LPF | | | LESS THAN 10 SEC/LPF | | | 2+ GRAM POSITIVE COCCI | | | 1+ GRAM POSITIVE RODS | | | Testing performed at [facility], [facility] | | | [place] [address] CULTURE | | | 2+ NORMAL UPPER RESPIRATORY CURTIS | | | Testing performed at [facility], [address] | | | [place] [address] REPORT STATUS | | | 11/16/2013 FINAL [...] EXTERNAL | | | | performed at [facility];[address] | | LAB | | | | [address];[place], [place] | | | | | | [address] | | | | + + + + + + | RBC, UA | 0-2Comment: Testing | 0 - 5 /hpf | EXTERNAL | | | | performed at [facility];[address] | | LAB | | | | [address];[place] | | | | | | [address] | | | | + + + + + + | Epithelial | NONE SEENComment: | /lpf | EXTERNAL | | | Cells | Testing performed at | | LAB | | | | [facility];[address];[place] [address] | | | | + + + + + + | Bacteria, | TRACE (A)Comment: | | EXTERNAL | | | UA | Testing performed at | | LAB | | | | [facility];[address];[place] [address] | | | | + + + [...] EXTERNAL | | | | performed at [facility] | | LAB | | | | [address];[place] | | | | | | [address] | | | | + + + + + + | Clarity | CLEARComment: Testing | | EXTERNAL | | | | performed at [facility];[address] | | LAB | | | | [address];[place] | | | | | | [address] | | | | + + + + + + | Specific | 1.004Comment: Testing | 1.001 - 1.035 | EXTERNAL | | | [place], | performed at [facility];[address] | | LAB | | | Urine | [address];[place] | | | | | | [address] | | | | + + + + + + | Leukocyte | TRACE (A)Comment: | | EXTERNAL | | | Esterase, | Testing performed at | | LAB | | | Urine | [facility];[address];[place] [address] | | | | + + + + + + | Nitrite, | NEGATIVEComment: Testing | | EXTERNAL | | | Urine | performed at [facility];[address] | | LAB | | | | [address];[place] | | | | | | [address] | | | | + + + + + + | Urobilinoge | 0.2Comment: Testing | mg/dL | EXTERNAL | | | n, Urine | performed at [facility];[address] | | LAB | | | | [address];[place] | | | | | | [address] | | | | + + + + + + | Protein, | NEGATIVEComment: Testing | mg/dL | EXTERNAL | | | Urine | performed at [facility];[address] | | LAB | | | | [address];[place] | | | | | | [address] | | | | + + + + + + | pH, Urine | 5.0Comment: Testing | 4.6 - 8.0 | EXTERNAL | | | | performed at [facility];[address] | | LAB | | | | [address];[place] | | | | | | [address] | | | | + + + + + + | Blood, | NEGATIVEComment: Testing | | EXTERNAL | | | Urine | performed at [facility];[address] | | LAB | | | | [address];[place] | | | | | | [address] | | | | + + + + + + | Ketones | NEGATIVEComment: Testing | mg/dL | EXTERNAL | | | | performed at [facility];[address] | | LAB | | | | [address];[place] | | | | | | [address] | | | | + + + + + + | Bilirubin, | NEGATIVEComment: Testing | | EXTERNAL | | | Urine | performed at [facility];[address] | | LAB | | | | [address];[place] | | | | | | [address] | | | | + + + + + + | Glucose, | NEGATIVEComment: Testing | mg/dL | EXTERNAL | | | Urine | performed at [facility];[address] | | LAB | | | | [address];[place], [place] | | | | | | [address] | | | | + + + [...] EXTERNAL LAB | | Testing performed at [address];[place] [address] MRSA PCR | | | NEGATIVE Testing performed at | | | [address];[place] [address] | | + + + + +---------+ [...] | | | Fingerstick | performed at [facility];[address] | | LAB | | | | [address];[place] | | | | | | [address] | | | | + + + [...]
--- OUTSIDE RECORDS SUMMARY | ~2020-03-05 | XMS | Encounter Summary ---
Demographics + + + | Address | [address] | | | [place] [address] | + + + | Home Phone [...] Providers + +------+ + | Care Supervisor Scrap Preparation Name | Role | Phone | + [...] | | | stenosis | B | [address] | | | | | | [place], [place] | Phone: | | | | | | [address] | [phone] | | | | | | Phone: | Fax: | | | | | | [phone] | [phone] | | | | | | Fax: | | | | | | | [phone] | | + +--------+ + + + + Encounter Details +--------+---------+ + + + | Date | Type | Department | Care Team | Description | +--------+---------+ + + + | 07/18/ | Office | [facility] | Denys Sibley, | Lumbar region | | 2018 | Visit | [facility] | DO [address] | somatic dysfunction | | | | [address]OLOGY [address] | (Primary Dx); | | | | [address] | [address] | Intractable back | | | | [place] | | pain; Encounter for | | | | [address] | | long-term use of | | | | [phone] | | opiate analgesic; | | | [...] Medical History: Diagnosis Date Acute renal failure ([facility]) April 2013 Anesthesia hallucinated after bladder repair Arthralgia Asthma Asthma Cancer ([facility]) 2004 breast Cerebrovascular accident (CVA) [facility] [...] to physical therapy, mass age therapy, acupuncture, health care consultant, along with recommended psychological counseling , either privately, or in group sessions offered by private care individuals, community serv ices, or adventist organizations. Appropriate referrals were made at patient [...] Will return to office in 4 weeks, [facility] was consulted and appears appropriate, [...] [place] | | | | | | [address] | | | | | | | | +--------+---------+ + + + | 04/03/ | Office | Cardiology | Zuleyka Castillo DO | | | 2019 | Visit | | [address] | | | | | | [place] | | | | | | [address] | | | | | | | [...]
--- OUTSIDE RECORDS SUMMARY | ~2020-03-05 | XMS | Encounter Summary ---
Demographics + + + | Address | [address] | | | [place] [address] | + + + | Home Phone [...] Team Providers + +------+ + | Care Acute Care Assistant Name | Role | Phone | [...] Cardiology | Diagnoses | No | Airam Fcuhs | | | | | Chest | Referring | [place] [address] | | | | | pressure | Provider Per | [address] | | | | | Procedures | Patient NO | [address] | | | | | [place] NEW | REFERRING | [place], [place] | | | | | PATIENT | PROVIDER PER | [id number] Phone: | | | | | L[place]EL [place] | PT | [phone] | | | | | OFFICE/OUTPT | | Fax: | | | | | | | [phone] | | | | | VISIT,EST,LE | | | | | | | GINA III [place] | | | | | | | OFFICE/OUTPT | | | | | | | | | | | | | | VISIT,EST,LE | | | | | | | VL IV [place] | | | | | | [...] 2016 | Visit | at [facility] [address] | [address] | unspecified type | | | | Ave Mailcode: CH7C | [address] [facility] [place] | (Primary Dx); | | | | [facility] | [place] [address] | Palpitations | | | | and Healing, | [phone] | | | | | [facility] | | | | | | Floor [place], [place] | | | | | | [address] | | | | | | [phone] | | | +--------+---------+ + + + [...] per Dr. Fuchs's note. Tiago Blake DO Carpet Technician Clinical milk route deliverer/ Division of Cardiovascular Medicine Airam Nicole Md - 03/09/2016 3:27 PM PDT [facility] General Cardiology New Patient Evaluation Patient ID: [...] ED. She was then transf erred to [facility] in [facility] where she was put into [...] every couple of weeks. She comes to [facility] today because she wants [...] | + + + + + | [facility] | [address] | [place], [place] | | | | [address] | [address] | | + + + + + documented in this encounter Visit Diagnoses + + | Diagnosis | + + | Chest pain, unspecified type - Primary | + + | Palpitations | + + documented in this encounter
--- OUTSIDE RECORDS SUMMARY | ~2020-03-05 | XMS | Encounter Summary ---
Demographics + + + | Address | [address] | | | [place] [address] | + + + | Home Phone [...] Team Providers + +------+ + | Care Urgent Care Physician Assistant Name | Role | Phone [...] | | | [place], [place] | [address] | | | | | [address] | | | | | | [phone] | | | +--------+ + + + [...] [place] | | | | | | [address] | | | | | | | | +--------+---------+ + + + | 04/03/ | Office | Cardiology | Zuleyka Castillo DO | | | 2019 | Visit | | [address] | | | | | | [place] | | | | | | [address] | | | | | | | | +--------+---------+ + + + documented as of this encounter Visit Diagnoses Not on filedocumented in this encounter"
--- OUTSIDE RECORDS SUMMARY | ~2020-03-05 | XMS | Encounter Summary ---
Demographics + + + | Address | [address] | | | [place] [address] | + + + | Home Phone [...] | Cervical | Darr[place] | [address] | | | | | radiculopath | [address] | [place], | | | | | y | [address] | [place] | | | | | Myelopathy | [address] | [address] | | | | | (HCC) | [place], [place] | Phone: | | | | | Procedures | [address] | [phone] | | | | | MRI Cervical | Phone: | Fax: | | | | | Spine wo | [phone] | [phone] | | | | | Contrast | Fax: | | | | | | | [phone] | | +--------+--------+ + + + + [...] lumbar | [address] | [address] | | | | | region | [address], | AV [place], | | | | | Chronic low | [address] | [place] [address] | | | | | back pain | [place] | Phone: | | | | | Facet | [address] | [phone] | | | | | arthritis of | Phone: | Fax: | | | | | lumbar | [phone] | [phone] | | | | | region | Fax: | | | | | | Scoliosis of | [phone] | | | | | | lumbar | | | | | | | spine Acute | | | | | | | renal | | | | | | | failure | | | | | | | (HCC) | | | | | | | Procedures | | | | | | | [place] OFFICE | | | | | | [...] + + | 07/26/ | Office | [facility] | [place], [place] | 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 PEE Vang [address] [facility] [address] [place], [place] [id number] FAX: NEUROSURGERY HISTORY AND PHYSICAL EXAMINATION CHIEF [...] ently a also seen a surgeon in [facility] he stated she did not need to have surgery pawel dave to her report. She also reports she had a recent MRI in the [facility] which I do not marcos [...] has no apparent deficits with short or shelter memory. CRANIAL NERVES: II: Acuity is intact. [...] Intrinsics 5 4 Ulnar Intrinsics 5 4 Certified Activities Director Strength 5 4 Hip Flexion 5 4 [...] [place] | | | | | | [id number] | | | | | | | | +--------+---------+ + + + | 04/03/ | Office | Cardiology | Zuleyka Castillo DO | | 2019 | Visit | | [address] | | | | | | [place] | | | | | | [id number] | | | | | | | [...]
--- OUTSIDE RECORDS SUMMARY | ~2020-03-05 | XMS | Encounter Summary ---
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 | PPS (pelvic | MD Britta | [address] | | | | | pain | [address] | [address] | | | | | syndrome) | [facility] | Mailcode: | | | | | Procedures | Rd | [facility] | | | | | CONSULT TO | [facility] [place] | for Health | | | | | PAIN CENTER | [address] | and Healing, | | | | | | Phone: | Building | | | | | | [phone] | 1,15th Floor | | | | | | Fax: | [place], [place] | | | | | | [phone] | [address] | | | | | | | Phone: | | | | | | | [phone] | | | | | | | Fax: | | | | | | | [phone] | +--------+--------+ + + + + Reason [...] | | | | | symptom | [place] | [address] | | | | | associated | [place] | Aravind | | | | | with female | Urology [address] | [address], 7th | | | | | genital | [address] | floor | | | | | organs | [address] [place], | [place], [place] | | | | | Unspecified | [place] [address] | [address] | | | | | urinary | Phone: | Phone: | | | | | incontinence | [phone] | [phone] | | | | | | Fax: | Fax: | | | | | | [phone] | [phone] | +--------+--------+ + + + + Encounter Details +--------+---------+ + + + | Date | Type | Department | Care Team | Description | +--------+---------+ + + + | 11/29/ | Office | [facility] | Britta Hankins MD | PPS (pelvic pain | | 2014 | Visit | [facility] | [address] | syndrome) (Primary | | | | [address] [place], | Dx); Depression with | | | | [address] [place] | [place] [address] | suicidal ideation; | | | | [place], [facility] floor | [phone] | Recurrent UTI; | | | | [facility] [place] | | Hypoestrogenism | | | | [address] | | | | | | [phone] | | | +--------+---------+ + + + [...] 4. Referral to pain service here at [facility] 5. Let me know if you [...] vag, 1 cs, she had to banner hospitalized after her second delivery for infection) seen at the request of Dr. Ck wan r pelvic pain and LUTs following pelvic reconstructive surgery. She is accompanied by her so sadiq Ball. He lives here in [place] so he is not fully aware of her recent health issues but h e did help in providing some of his mother's past history. 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 [place], she was hospitalized at [facility] in 2005 for a Vicodin overdose. [...] speaker, a good grandmother". Her physicians in [place] and elsewhere will not pre scribe pain [...] until she was able to leave her [employer] house at age 20. Her aunt recently [...] estrogenization of the vulvova ginal tissues; negative DISTRICT RESOURCE OFFICER; no hypospadias of the urethra; + tenderness [...] F/U with Dr. Stover on return to [place]. I am Christine Monterroso functioning as a scribe for Dr. Britta Hankins. Christine Monterroso [facility] [address] [facility] [place] [facility] [place] [address] I have reviewed, verified, and amended the [...] for afternoon appointments. Britta Hankins M.D., FACS Detailer [employer] [facility] documented in this encoun [...]
--- OUTSIDE RECORDS SUMMARY | ~2020-03-05 | XMS | Encounter Summary ---
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
--- OUTSIDE RECORDS SUMMARY | ~2020-03-05 | XMS | Encounter Summary ---
Demographics + + + | Address | [address] | | | [place] [address] | + + + | Home Phone [...] Providers + +------+ + | Care Maintenance Helper Utility Engineer Name | Role | Phone | [...] + + | 09/04/ | Telephone | [facility] | Shay Dietz | Appointment | | 2012 | | PHYSIATRY [address] | T, [address] | | | | [address] | [place] [facility] | | | | | [place], [place] | [address] | | | | | [address] | | | | | | [phone] | | | +--------+ + + + [...] [place] | | | | | | [id number] | | | | | | | | +--------+---------+ + + + | 04/03/ | Office | Cardiology | Zuleyka Castillo DO | | 2019 | Visit | | [address] | | | | | | [place] | | | | | | [address] | | | | | | | | +--------+---------+ + + + documented as of this encounter Visit Diagnoses Not on filedocumented in this encounter"
--- OUTSIDE RECORDS SUMMARY | ~2020-03-05 | XMS | Encounter Summary ---
Demographics + + + | Address | [address] | | | [place] [address] | + + + | Home Phone [...] Providers + +------+ + | Care Customer Account Representative Name | Role | Phone [...] | | | 2012 | | [facility] | [place], [place] | | | | | [address] | [address] | | | | | [address] [place] | | | | | | [place], [address] [place] [address] | | | | | | [place], [place] | | | | | | [address] | | | | | | [phone] | | | +--------+ + + + [...]
--- OUTSIDE RECORDS SUMMARY | ~2020-03-05 | XMS | Encounter Summary ---
Demographics + + + | Address | [address] | | | [place] [address] | + + + | Home Phone [...] Team Providers + +------+ + | Care Cleaner Window Name | Role | Phone | + [...] | | right-sided | [address] | [place], [place] | | | | | sciatica | [place] | [address] | | | | | Facet | [address] | Phone: | | | | | arthritis of | Phone: | [phone] | | | | | lumbar | [phone] | Fax: | | | | | region | Fax: | [phone] | | | | | Foraminal | [phone] | | | | | | stenosis [...] | Popeye, | | | | | Centerless Grinder Set Up Operator / | Low back | Oxana Solorio, | [place], | | | | Physical | pain | PERMIT AGENT [address] | [address] | | | | Medicine and | Bilateral | [place] | [address] | | | | Rehabilitatio | leg pain | [place], | ST, [address] | | | | n | Bilateral | [place] [address] | [place] | | | | | hip pain | Phone: | [address] Phone: | | | | | low back | [phone] | [phone] | | | | | pain, | Fax: | Fax: | | | | | bilateral | [phone] | [phone] | | | | | leg pain [...] + | 07/06/ | Office | [facility] | [place], | Bursitis, hip, right | | 2015 | Visit | PHYSIATRY [address] | [address] | (Primary Dx); | | | | [address] | [address], [address] | Chronic right-sided | | | | [place], [place] | [place] [address] | low back pain with | | | | [address] | [phone] | right-sided | | | | [phone] | | sciatica; Facet | | | | | | arthritis of lumbar | | | | | | region ([facility]); | | | | | | Foraminal [...] of the procedure you must provide a parcel post truck driver to take you home. For [...] and working more hours due to the [employer] Round up. 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 She has appropriate fund of [...] (multiple sessions over the years) and care transitions nurse. Unfortunately she lola nues to have [...] has been ordered to be done at [place] [address]. We will follow up once images are [...] [place] | | | | | | [id number] | | | | | | | | +--------+---------+ + + + | 04/03/ | Office | Cardiology | Zuleyka Castillo DO | | 2019 | Visit | | [address] | | | | | | [place] | | | | | | [id number] | | | | | | | [...] Spondylosis ICD-10 Code M47.816 Kori Caputo | [facility] | | Joanne presents to the fluoroscopy suite for | [facility] | | fluoroscopically-guided bilateral L5-S1 facet injections [...] [address] | [address] | [place] | [phone] | | [facility] | | [address] | | | - IMAGING | | [...]
--- OUTSIDE RECORDS SUMMARY | ~2020-03-05 | XMS | Encounter Summary ---
Demographics + + + | Address | [address] | | | [place] [address] | + + + | Home Phone [...] Team Providers + +------+ + | Care Woodworking Machine Operator Name | Role | Phone [...] | 08/05/ | Emergency | [facility] | Dion Richardson | Chronic low back | | 2014 | | [facility] | Laz Richards MD | pain (Primary Dx); | | | | CENTER [address] | [address] | Weakness | | | | [place] | [place] | | | | | [address] | [address] | | | | | [phone] | | | +--------+ + + + [...] [place] | | | | | | [address] | | | | | | | | +--------+---------+ + + + | 04/03/ | Office | Cardiology | Zuleyka Castillo DO | | | 2020 | Visit | | [address] | | | | | | [place] | | | | | | [address] | | | | | | | [...] + | [facility] | [address] | [place], [place] | [phone] | | [facility] | | [address] | | | - LABORATORY | | | | + + + + + | [facility] | [address] | [place], [place] | | | [facility] | | [address], [facility] | | | - LABORATORY | [...] [address] | [place] | [phone] | | [facility] | | [address] | | | - LABORATORY | | | | + + + + + | [facility] | [address] | [place], [place] | | | [facility] | | [address], [facility] | | | - LABORATORY | [...] mL/min/1.73m2 | [facility] | | | [place] | RATE,ESTIMATED | | MEDICAL | | | | mL/min/1.45e0Hryq than | | CENTER - | | [...] + | [facility] | [address] | [place], [place] | [phone] | | [facility] | | [address] | | | - LABORATORY | | | | + + + + + | [facility] | [address] | [place], [place] | | | [facility] | | [address], [facility] | | | - LABORATORY | [...] + | [facility] | [address] | [place] | [phone] | | [facility] | | [address] | | | - LABORATORY | | | | + + + + + | [facility] | [address] | [place] | | | [facility] | | [id number] | | | - LABORATORY | [...] + | [facility] | [address] | [place], [place] | [phone] | | [facility] | | [address] | | | - LABORATORY | | | | + + + + + | [facility] | [address] | [place], [place] | | | [facility] | | [facility], [facility] | | | - LABORATORY | [...]
--- OUTSIDE RECORDS SUMMARY | ~2020-03-05 | XMS | Encounter Summary ---
Demographics + + + | Address | [address] | | | [place] [address] | + + + | Home Phone [...] Team Providers + +------+ + | Care Tester Wafer Substrate Name | Role | Phone | + [...] + + | 08/31/ | Telephone | [facility] | Niki Pizarro, | Other (patient | | 2019 | | NEUROSURGERY [address] | RN | trying to reach | | | | [address] | | [facility]'s office) | | | | [place] | | | | | | [address] | | | | | | [phone] | | | +--------+ + + + [...] [place] | | | | | | [address] | | | | | | | | +--------+---------+ + + + | 04/03/ | Office | Cardiology | Zuleyka Castillo DO | | | 2019 | Visit | | [address] | | | | | | [place] | | | | | | [address] | | | | | | | | +--------+---------+ + + + documented as of this encounter Visit Diagnoses Not on filedocumented in this encounter"
--- OUTSIDE RECORDS SUMMARY | ~2020-03-05 | XMS | Encounter Summary ---
Demographics + + + | Address | [address] | | | [place] [address] | + + + | Home Phone [...] Team Providers + +------+ + | Care Cell Coverer Name | Role | Phone | [...] low | J Luis, | [address] | | | | | back pain | Shay Mukherjee MD | [place], | | | | | Procedures | [address] | [place] | | | | | MRI Lumbar | [place] | [address] | | | | | Spine wo | [place], [place] | Phone: | | | | | Contrast | [address] | [phone] | | | | | | Phone: | Fax: | | | | | | [phone] | [phone] | | | | | | Fax: | | | | | | | [phone] | | +--------+--------+ + + + + [...] + | 08/16/ | Office | [facility] | Shay Dietz | Chronic low back | | 2012 | Visit | PHYSIATRY [address] | TMD [address] | pain (Primary Dx); | | | | [address] | [place], [place] | DISC DISEASE, | | | | [place], [place] | [address] | LUMBAR; Facet | | | | [address] | | arthritis of lumbar | | | | [phone] | | region | +--------+---------+ + + [...] 2019 | Visit | | DO [address] | | | | | | [place] | | | | | | [address] | | | | | | | | +--------+---------+ + + + | 04/03/ | Office | Cardiology | Zuleyka Castillo DO | | | 2019 | Visit | | [address] | | | | | | [place] | | | | | | [address] | | | | | | | [...]
--- OUTSIDE RECORDS SUMMARY | ~2020-03-05 | XMS | Encounter Summary ---
Demographics + + + | Address | [address] | | | [place] [address] | + + + | Home Phone [...] Providers + +------+ + | Care Bag Maker Name | Role | Phone | [...] | [place], [place] | [place] [address] | | | | | [address] | [phone] | | | | | [phone] | | | +--------+ + + + [...] [place] | | | | | | [address] | | | | | | | | +--------+---------+ + + + | 04/03/ | Office | Cardiology | Zuleyka Castillo DO | | | 2020 | Visit | | [address] | | | | | | [place] | | | | | | [address] | | | | | | | | +--------+---------+ + + + documented as of this encounter Visit Diagnoses Not on filedocumented in this encounter"
--- OUTSIDE RECORDS SUMMARY | ~2020-03-05 | XMS | Encounter Summary ---
Demographics + + + | Address | [address] | | | [place] [address] | + + + | Home Phone [...] Providers + +------+ + | Care Egg Breaker Name | Role | Phone | + +------+ + | Concepción Gallardo NP | PCP | | + +------+ + Encounter Details +--------+ + + + + | Date | Type | Department | Care Team | Description | +--------+ + + + + | 11/26/ | Emergency | [facility] | Garth Pedroza MD | Convulsions, | | 2016 | | MEDICAL CENTER | [address] | unspecified | | | | EMERGENCY CENTER | [place] [address] | convulsion type | | | | [address] | [phone] | ([facility]); Generalized | | | | [place], [place] | | weakness | | | | [address] | | | | | | [phone] | | | +--------+ + + + [...] [place] | | | | | | [address] | | | | | | | | +--------+---------+ + + + | 04/03/ | Office | Cardiology | Zuleyka Castillo DO | | | 2019 | Visit | | [address] | | | | | | [place] | | | | | | [phone] | | | | | | | [...] | | | [facility] [address] | | | | | | [address];[place] [address] | | | | + + + + + + | Clarity | CLEARComment: Testing | | EXTERNAL | | | | performed at [facility];[address] | | LAB | | | | [address];[place] | | | | | | [address] | | | | + + + + + + | Specific | 1.008Comment: Testing | 1.002 - 1.030 | EXTERNAL | | | [place], | performed at [facility];[address] | | LAB | | | Urine | [address];[place] | | | | | | [address] | | | | + + + + + + | Leukocyte | NEGATIVEComment: Testing | | EXTERNAL | | | Esterase, | performed at [facility];[address] | | LAB | | | Urine | [address];[place] | | | | | | [address] | | | | + + + + + + | Nitrite, | NEGATIVEComment: Testing | | EXTERNAL | | | Urine | performed at [facility];[address] | | LAB | | | | [address];[place] | | | | | | [address] | | | | + + + + + + | Urobilinoge | NORMALComment: Testing | mg/dL | EXTERNAL | | | n, Urine | performed at [facility];[address] | | LAB | | | | [address];[place] | | | | | | [address] | | | | + + + + + + | Protein, | NEGATIVEComment: Testing | mg/dL | EXTERNAL | | | Urine | performed at [facility];[address] | | LAB | | | | [address];[place] | | | | | | [address] | | | | + + + + + + | pH, Urine | 5.0Comment: Testing | 5.0 - 8.0 | EXTERNAL | | | | performed at [facility];[address] | | LAB | | | | [address];[place] | | | | | | [address] | | | | + + + + + + | Blood, | NEGATIVEComment: Testing | | EXTERNAL | | | Urine | performed at [facility];[address] | | LAB | | | | [address];[place] | | | | | | [address] | | | | + + + + + + | Ketones | NEGATIVEComment: Testing | mg/dL | EXTERNAL | | | | performed at [facility];[address] | | LAB | | | | [address];[place] | | | | | | [address] | | | | + + + + + + | Bilirubin, | NEGATIVEComment: Testing | | EXTERNAL | | | Urine | performed at [facility];[address] | | LAB | | | | [address];[place] | | | | | | [address] | | | | + + + + + + | Glucose, | NEGATIVEComment: Testing | mg/dL | EXTERNAL | | | Urine | performed at [facility];[address] | | LAB | | | | [address];[place] | | | | | | [address] | | | | + + + [...] (500), | | | | | | mapping editor DIANA LARKIN (2) | | | | | | on 11/26/2015 5:46:08 PM | | | | | | | | | | + + + + + + + + | Specimen | + + | | + + + + + | Narrative | Performed At | + + + | Historically converted procedure from [facility] Epic environment | EXTERNAL LAB | + [...] [place] | | | | | | [address] | | | | + + + + + -+ | Red Blood | 4.61Comment: Testing | 3.70 - 5.10 | EXTERNAL | | | Cells | performed at [facility];888 | M/uL | LAB | | | Counted | [address];[place] | | | | | | [address] | | | | + + + + + -+ | Hemoglobin | 13.4Comment: Testing | 11.3 - 15.5 | EXTERNAL | | | | performed at [facility];888 | g/dL | LAB | | | | [address];[place] | | | | | | [address] | | | | + + + + + -+ | Hematocrit, | 40.4Comment: Testing | 34.0 - 46.0 % | EXTERNAL | | | POC | performed at [facility];[address] | | LAB | | | | [address];[place] | | | | | | [address] | | | | + + + + + -+ | MCV | 87.7Comment: Testing | 80.0 - 100.0 fl | EXTERNAL | | | | performed at [facility];[address] | | LAB | | | | [address];[place] | | | | | | [address] | | | | + + + + + -+ | MCH | 29.1Comment: Testing | 27.0 - 34.0 pg | EXTERNAL | | | | performed at [facility];[address] | | LAB | | | | [address];[place] | | | | | | [address] | | | | + + + + + -+ | MCHC | 33.2Comment: Testing | 32.0 - 35.5 | EXTERNAL | | | | performed at [facility];[address] | g/dL | LAB | | | | [address];[place] | | | | | | [address] | | | | + + + + + -+ | RDW-CV | 39.8Comment: Testing | 37 - 53 fl | EXTERNAL | | | | performed at [facility];[address] | | LAB | | | | [address];[place] | | | | | | [address] | | | | + + + + + -+ | Platelet | 287Comment: Testing | 150 - 400 K/uL | EXTERNAL | | | Count | performed at [facility];[address] | | LAB | | | Plasma | [address];[place] | | | | | | [address] | | | | + + + + + -+ | MPV | 7.7Comment: Testing | fl | EXTERNAL | | | | performed at [facility];[address] | | LAB | | | | [address];[place] | | | | | | [address] | | | | + + + + + -+ | Differentia | AUTOMATEDComment: | | EXTERNAL | | | l Type | Testing performed at | | LAB | | | | [facility];[address];[place] [address] | | | | + + + + + -+ | % Segmented | 45.19Comment: Testing | % | EXTERNAL | | | | performed at [facility];[address] | | LAB | | | Neutrophils | [address];[place] | | | | | | [address] | | | | + + + + + -+ | % | 44.63Comment: Testing | % | EXTERNAL | | | Lymphocytes | performed at [facility];[address] | | LAB | | | | [address];[place] | | | | | | [address] | | | | + + + + + -+ | % Monocytes | 7.42Comment: Testing | % | EXTERNAL | | | | performed at [facility];[address] | | LAB | | | | [address];[place] | | | | | | [address] | | | | + + + + + -+ | % | 1.58Comment: Testing | % | EXTERNAL | | | Eosinophils | performed at [facility];[address] | | LAB | | | | [address];[place] | | | | | | [address] | | | | + + + + + -+ | % Basophils | 1.18Comment: Testing | % | EXTERNAL | | | | performed at [facility];[address] | | LAB | | | | [address];[place] | | | | | | [address] | | | | + + + + + -+ | Absolute | 3.08Comment: Testing | 1.90 - 7.40 | EXTERNAL | | | Segmented | performed at [facility];[address] | K/uL | LAB | | | Neutrophils | [address];[place] | | | | | | [address] | | | | + + + + + -+ | Absolute | 3.04Comment: Testing | 1.00 - 3.90 | EXTERNAL | | | Lymphocytes | performed at [facility];[address] | K/uL | LAB | | | | [address];[place] | | | | | | [address] | | | | + + + + + -+ | Absolute | 0.51Comment: Testing | 0.00 - 0.80 | EXTERNAL | | | Monocytes | performed at [facility];[address] | K/uL | LAB | | | | [address];[place] | | | | | | [address] | | | | + + + + + -+ | Absolute | 0.11Comment: Testing | 0.00 - 0.50 | EXTERNAL | | | Eosinophils | performed at [facility];[address] | K/uL | LAB | | | | [address];[place] | | | | | | [address] | | | | + + + + + -+ | Absolute | 0.08Comment: Testing | 0.00 - 0.10 | EXTERNAL | | | Basophils | performed at [facility];[address] | K/uL | LAB | | | | [address];[place] | | | | | | [address] | | | | + + + + + -+ | Na | 139Comment: Testing | 135 - 143 | EXTERNAL | | | | performed at [facility];[address] | mmol/L | LAB | | | | [address];[place] | | | | | | [address] | | | | + + + + + -+ | K | 4.1Comment: SLT | 3.5 - 4.9 | EXTERNAL | | | | HEMOLYSISTesting | mmol/L | LAB | | | | performed at [facility];[address] | | | | | | [address];[place] | | | | | | [address] | | | | + + + + + -+ | Cl | 106Comment: Testing | 99 - 109 mmol/L | EXTERNAL | | | | performed at [facility];[address] | | LAB | | | | [address];[place] | | | | | | [address] | | | | + + + + + -+ | CO2 | 28Comment: Testing | 23 - 32 mmol/L | EXTERNAL | | | | performed at [facility];[address] | | LAB | | | | [address];[place] | | | | | | [address] | | | | + + + + + -+ | Anion Gap | 9Comment: Testing | 5 - 20 mmol/L | EXTERNAL | | | | performed at [facility];[address] | | LAB | | | | [address];[place] | | | | | | [address] | | | | + + + + + -+ | Glucose, | 78Comment: Testing | 65 - 99 mg/dL | EXTERNAL | | | Fasting | performed at [facility];[address] | | LAB | | | | [address];[place] | | | | | | [address] | | | | + + + + + -+ | BUN | 16Comment: Testing | 8 - 25 mg/dL | EXTERNAL | | | | performed at [facility];[address] | | LAB | | | | [address];[place] | | | | | | [address] | | | | + + + + + -+ | Creatinine | 0.82Comment: Testing | 0.50 - 1.00 | EXTERNAL | | | | performed at [facility];[address] | mg/dL | LAB | | | | [address];[place] | | | | | | [address] | | | | + + + + + -+ | BUN/Creatin | 20Comment: Testing | | EXTERNAL | | | ine Ratio | performed at [facility];[address] | | LAB | | | | [address];[place] | | | | | | [address] | | | | + + + + + -+ | Calcium | 8.3 (L)Comment: Testing | 8.5 - 10.5 | EXTERNAL | | | | performed at [facility];[address] | mg/dL | LAB | | | | [address];[place] | | | | | | [address] | | | | + + + + + -+ | Protein, | 7.3Comment: Testing | 6.3 - 8.2 g/dL | EXTERNAL | | | Total | performed at [facility];[address] | | LAB | | | | [address];[place] | | | | | | [address] | | | | + + + + + -+ | Albumin | 3.7Comment: Testing | 3.3 - 4.8 g/dL | EXTERNAL | | | | performed at [facility];[address] | | LAB | | | | [address];[place] | | | | | | [address] | | | | + + + + + -+ | Globulin | 3.6Comment: Testing | 1.3 - 4.9 g/dL | EXTERNAL | | | | performed at [facility];[address] | | LAB | | | | [address];[place] | | | | | | [address] | | | | + + + + + -+ | A/G Ratio | 1.0Comment: Testing | 1.0 - 2.4 | EXTERNAL | | | | performed at [facility];[address] | | LAB | | | | [address];[place] | | | | | | [address] | | | | + + + + + -+ | Bilirubin | 0.2Comment: Testing | 0.1 - 1.5 mg/dL | EXTERNAL | | | Total | performed at [facility];[address] | | LAB | | | | [address];[place] | | | | | | [address] | | | | + + + + + -+ | ALP, | 69Comment: Testing | 35 - 115 U/L | EXTERNAL | | | External | performed at [facility];[address] | | LAB | | | | [address];[place] | | | | | | [address] | | | | + + + + + -+ | AST | 22Comment: SLT | 10 - 45 U/L | EXTERNAL | | | | HEMOLYSISTesting | | LAB | | | | performed at [facility];[address] | | | | | | [address];[place] | | | | | | [address] | | | | + + + + + -+ | ALT | 31Comment: Testing | 10 - 65 U/L | EXTERNAL | | | | performed at [facility];[address] | | LAB | | | | [address];[place] | | | | | | [address] | | | | + + + [...] | | | | | Blvd;[place] [address] | | | | + + + + + -+ | CK, Total | 128Comment: Testing | 30 - 240 U/L | EXTERNAL | | | | performed at [facility];[address] | | LAB | | | | [address];[place] | | | | | | [address] | | | | + + + [...] [place] | | | | | | [address] | | | | + + + + + -+ | aPTT, | 27Comment: Testing | 23 - 32 seconds | EXTERNAL | | | Patient | performed at [facility];[address] | | LAB | | | | [address];[place] | | | | | | [address] | | | | + + + [...] | LAB | | | | [address];[place], [place] | | | | | | [address] | | | | + + + [...]
--- OUTSIDE RECORDS SUMMARY | ~2020-03-05 | XMS | Encounter Summary ---
Demographics + + + | Address | [address] | | | [place] [address] | + + + | Home Phone [...] [place], [place] | | | | | [place], [place] | [address] | | | | | [address] | | | | | | [phone] | | | +--------+ + + + [...] [place] | | | | | | [address] | | | | | | | | +--------+---------+ + + + | 04/03/ | Office | Cardiology | Zuleyka Castillo DO | | 2019 | Visit | | [address] | | | | | | [facility] [place] [place] | | | | | | [address] | | | | | | | [...] 0.88 m/s MV | | | Dec Glades: 3.57 m/s2 MV DecT: 230.60 ms MV E Mark: 0.82 m/s | | | MV E/A Ratio: 0.93 MV PHT: 66.87 ms MVA By PHT: 3.28 cm2 | | | Septal e': 0.05 m/s Septal E/e': 15.05 Lateral e': 0.08 m/s | | | Lateral E/e': 9.70 RAP: 5 mmHg Ship'S Electronic Warfare Officer: | | | Authenticated by: [facility] Report Date/Time: -- | | | [id number]:[id number] | | + + + + + | Procedure Note | + + | Junior, Rad Conversion - 06/21/2019 4:00 PM PDT Patient Name: CARRIE, | | SHILOate of : 1945 Performing Physician: Nena | | [facility] INDICATIONS------ | | -----tia/stroke CONCLUSIONS 1. [...] cmLVPWd: 0.73 cmLVOT Area: 3.03 | | [id number] Diam: 1.96 cm%FS: 33.05 %EF(Teich): 62.03 %ESV(Teich): 29.33 mlLVIDs: | | 2.79 cmSV(Teich): 47.94 mlRVIDd: 2.59 cmLAESV(A-L): 41.85 mlLAESV Index (A-L): | | 26.32 ml/m2LAAs A2C: 12.87 rg4BTZVT A-L A2C: 32.77 mlLALs A2C: 4.29 cmLAAs A4C: | | 16.44 yp1PXSER A-L A4C: 50.32 mlLALs A4C: 4.55 cmAV maxP.92 mmHgAV meanPG: | | 4.38 mmHgAV Vmax: 1.40 m/Tisha Vmean: 0.99 m/Tisha VTI: 32.81 cmAVA Vmax: 2.11 | | cm2AVA (VTI): 2.40 mk7XRKU (Vmax): 0.00 cm2/m2AVAI (VTI): 0.00 cm2/m2LVOT maxPG: | | 3.84 mmHgLVOT meanP.47 mmHgLVSI Dopp: 49.70 ml/m2LVSV Dopp: 79.02 mlLVOT | | Vmax: 0.98 m/sLVOT Vmean: 0.75 m/sLVOT VTI: 26.05 cmMV A Mark: 0.88 m/sMV Dec | | Glades: 3.57 m/s2MV DecT: 230.60 msMV E Mark: 0.82 m/sMV E/A Ratio: 0.93MV PHT: | | 66.87 msMVA By PHT: 3.28 cu4Ojokpf e': 0.05 m/sSeptal E/e': 15.05Lateral e': | | 0.08 m/sLateral E/e': 9.70RAP: 5 mmHg Ship'S Electronic Warfare Officer:Authenticated by: Nena | | [facility] Date/Time: -- [id number]:24 IMPRESSION: 1. This was a technically | [...] A Mark: 0.88 m/s | |MV Dec Glades: 3.57 m/s2 | |MV DecT: 230.60 ms | |MV E Mark: 0.82 m/s | |MV E/A Ratio: 0.93 | |MV PHT: 66.87 ms | |MVA By PHT: 3.28 cm2 | |Septal e': 0.05 m/s | |Septal E/e': 15.05 | |Lateral e': 0.08 m/s | |Lateral E/e': 9.70 | |RAP: 5 mmHg | | | |Ship'S Electronic Warfare Officer: | |Authenticated by: Nena Franco | |Report Date/Time: -- [id number]:24 | | | |IMPRESSION: | |1. This [...]
--- OUTSIDE RECORDS SUMMARY | ~2020-03-05 | XMS | Encounter Summary ---
Demographics + + + | Address | [address] | | | [place] [address] | + + + | Home Phone [...] Providers + +------+ + | Care Director Occupational Name | Role | Phone | + [...] + + | 12/17/ | Office | [facility] | Denys Sibley, | S/P insertion of | | 2019 | Visit | [facility] | DO [address] | spinal cord | | | | [address], [place] | stimulator (Primary | | | | [address] [address] | [address] | Dx); Spinal stenosis | | | | [place], [place] | | of lumbosacral | | | | [address] | | region; Lumbar | | | | [phone] | | region somatic | | | [...] the office today for medication evaluation f ollow-up. Current pain medication we give her chronic pain syndrome is Cora 10/325 1 p.o. every 4 ho urs [...] not limited to physical therapy, palliative care coordinator, acupuncture, massage therapy, and nutritional [...] Author Status Filed Medication Agreement Rupa Nye, All Round Logger Active 11/14/2019 1:49 PM Pain Contract- Dr. [...] reflux disease Acute renal failure ([facility]) April 2013 Adverse effect of anesthesia hx hallucinations after anesthesia x 3 yrs ago. Anesthesia hallucinated after bladder repair Arthralgia Arthritis Asthma Asthma Back pain Cancer ([facility]) 2004 breast Cataract Cerebrovascular accident (CVA) ([facility]) no per pt Chronic back pain Chronic back pain Chronic constipation Concussion 07/2015 Preceeded by seizure Constipation COPD (chronic obstructive pulmonary disease) ([facility]) Degenerative disc disease Depression Depression Diabetes mellitus ([facility]) Diabetes mellitus, type 2 ([facility]) diet controlled Diabetes type 2, controlled ([facility]) diet controlled Diarrhea Disorder of thyroid Diverticulosis [...] of lumbar spine 04/17/2014 Seizure ([facility]) one due to meds, two due to [...] reflux disease Acute renal failure ([facility]) April 2013 Adverse effect of anesthesia hx hallucinations after anesthesia x 3 yrs ago. Anesthesia hallucinated after bladder repair Arthralgia Arthritis Asthma Asthma Back pain Cancer ([facility]) 2004 breast Cataract Cerebrovascular accident (CVA) ([facility]) no per pt Chronic back pain Chronic back pain Chronic constipation Concussion 07/2015 Preceeded by seizure Constipation COPD (chronic obstructive pulmonary disease) ([facility]) Degenerative disc disease Depression Depression Diabetes mellitus ([facility]) Diabetes mellitus, type 2 ([facility]) diet controlled Diabetes type 2, controlled ([facility]) diet controlled Diarrhea Disorder of thyroid Diverticulosis [...] of lumbar spine 04/17/2014 Seizure ([facility]) one due to meds, two due to [...] KYPHOPLASTY; Surgeon: Alfredo Casillas DO; Location: [facility] MAIN OR; Service: Pa in Management; Laterality: N/A; L5 FRACTURE SURGERY ANKLE HERNIA REPAIR HYSTERECTOMY HYSTERECTOMY LAMINECTOMY N/A 08/03/2019 Procedure: LAMINOTOMY THORACIC / LUMBAR W/ PLACEMENT SPINAL CORD STIMULATOR; Surgeon: Suly Hutchins MD; Location: [facility] MAIN OR OTHER SURGICAL HISTORY [...] oriented x3 bowel and bladder continent. [place] ent does not have any bowel issues however [...] reviewed, listed controlled substances are consistent with [facility] prescriptions and patient reported use. [...] = high risk) Daily Opioid Dose = Cora 10/325 1 p.o. every 4 hours as [...] physical therapy, massage therapy, acupuncture, palliative care coordinator, along with niki mmended psychological counseling, either privately, or in group sessions offered by private care individuals, community services, or confucianism organizations. Appropriate referrals were made at patient [...] and complications with the passage of time. assisted use is also associated with depressions, and liver and renal failure. Finally, these medicines are associated with both physical and emotional addiction and can be difficult to stop after taking for only a few weeks. This document has been created using [employer] Voice Recognition software and [email or web address]. The entry has been reviewed for content and accuracy, but there may still exist "sound alike" engraver pantograph word errors and/or unintended additions and deletions. [...] [place] | | | | | | [id number] [...]
--- OUTSIDE RECORDS SUMMARY | ~2020-03-05 | XMS | Encounter Summary ---
Demographics + + + | Address | [address] | | | [place] [address] | + + + | Home Phone [...] Providers + +------+ + | Care Summer Intern Name | Role | Phone | [...] + + | 07/20/ | Telephone | [facility] | Maykel Hutchins MD | Procedure (Question) | | 2019 | | [facility] | [address] | | | | | ORTHOPEDIC SPINE | [place] | | | | | [address] [place] | [place] [address] | | | | | [place] | [phone] | | | | | [address] | | | | | | [phone] | | | +--------+ + + + [...] [place] | | | | | | [address] | | | | | | | | +--------+---------+ + + + | 04/03/ | Office | Cardiology | Zuleyka Castillo DO | | | 2019 | Visit | | [address] | | | | | | [place] | | | | | | [phone] | | | | | | | | +--------+---------+ + + + documented as of this encounter Visit Diagnoses Not on filedocumented in this encounter"
--- OUTSIDE RECORDS SUMMARY | ~2020-03-05 | XMS | Encounter Summary ---
Demographics + + + | Address | [address] | | | [place] [address] | + + + | Home Phone [...] Team Providers + +------+ + | Care Dynamometer Repairer Name | Role | Phone | [...] Management | | 2016 | | at [facility] [address] | [address] | (follow up BPs) | | | | Brittany Mailcode: CH7C | [address] [place], | | | | | [facility] | [place] [address] | | | | | and Healing, | [phone] | | | | | Building | | | | | | [address], [place] | | | | | | [address] | | | | | | [phone] | | | +--------+ + + + [...]
--- OUTSIDE RECORDS SUMMARY | ~2020-03-05 | XMS | Clinical Summary ---
Demographics + + + | Address | [address] | | | [place] [address] | + + + | Home Phone [...] Team Providers + +------+ + | Care Cooker Helper Name | Role | Phone | + +------+ + | Oxana Nye | PCP | | + +------+ + Source Comments [facility] Allergies [...] | | | | | | | [address] | | + +--------+ +--------+ + +--------+ | [employer] | AARP | [phone] | 07/01/20 | [phone] | [address] | Indemn | | RETIRED PEOPLE | | | 12-Pre | [phone] | [phone] | ity | | | | | sent | | [place] | | | | | | | | [address] | | + +--------+ +--------+ + +--------+ [...] jose | | | 8 (Home) | [phone] | + +--------+ +--------+ + +
--- OUTSIDE RECORDS SUMMARY | ~2020-03-05 | XMS | Encounter Summary ---
Demographics + + + | Address | [address] | | | [place] [address] | + + + | Home Phone [...] Team Providers + +------+ + | Care Ct Technologist Name | Role | Phone | + +------+ + | Miquel Calhoun MD | PCP | | + +------+ + Encounter Details +--------+ + + + + | Date | Type | Department | Care Team | Description | +--------+ + + + + | 10/18/ | Telephone | [facility] | Khushbu Cortez, | | | 2012 | | [facility] | [place], [place] | | | | | [address] | [address] | | | | | [address] | | | | | | [place], [address] [place] [address] | | | | | | [place], [place] | | | | | | [address] | | | | | | [phone] | | | +--------+ + + + [...]
--- OUTSIDE RECORDS SUMMARY | ~2020-03-05 | XMS | Encounter Summary ---
Demographics + + + | Address | [address] | | | [place] [address] | + + + | Home Phone | | + + + | Preferred Language | Unknown | + + + | Marital Status | Single | + + + | Restoration Affiliation | NON | + + + [...] Providers + +------+ + | Care Animal Care Supervisor Name | Role | Phone | + +------+ + | Oxana yNe | PCP | | + +------+ + Encounter Details +--------+ + + + + | Date | Type | Department | Care Team | Description | +--------+ + + + + | 09/30/ | MyChart | Cardiology General | Airam Fuchs MD | RE: Do I really | | 2016 | Encounter | at [facility] [address] | [address] | havea problem with | | | | Ave Mailcode: CH7C | [address] [place], | my heart. | | | | [place] [facility] | [place] [address] | | | | | and Healing, | [phone] | | | | | [facility] | | | | | | Floor [place], [place] | | | | | | [address] | | | | | | [phone] | | | +--------+ + + + [...]
--- OUTSIDE RECORDS SUMMARY | ~2020-03-05 | XMS | Encounter Summary ---
Demographics + + + | Address | [address] | | | [place] [address] | + + + | Home Phone [...] Team Providers + +------+ + | Care Climatology Professor Name | Role | Phone | [...] + + | 07/03/ | Telephone | [facility] | Shay Dietz | Other (Called | | 2012 | | PHYSIATRY [address] | [address] | patient to discuss | | | | [address] | [address] | options regarding | | | | [place] | [address] | having another | | | | [address] | | injection or having | | | | [phone] | | a MBB or RFA) | [...] [place] | | | | | | [address] | | | | | | | | +--------+---------+ + + + | 04/03/ | Office | Cardiology | Zuleyka Castillo DO | | | 2019 | Visit | | [address] | | | | | | [place] | | | | | | [address] | | | | | | | | +--------+---------+ + + + documented as of this encounter Visit Diagnoses Not on filedocumented in this encounter"
--- OUTSIDE RECORDS SUMMARY | ~2020-03-05 | XMS | Encounter Summary ---
[...] Providers + +------+ + | Care Hand I Blocker Name | Role | Phone | + +------+ + | Wendi Aiken | PCP | | + +------+ + Encounter Details +--------+ + + + + | Date | Type | Department | Care Team | Description | +--------+ + + + + | 05/21/ | Orders Only | [facility] | Provider, | | | 2019 | | SYSTEM GENERIC OP | [address] | | | | | [address] | [place] | | | | | [address] [place], [place] | [place] [address] | | | | | [address] | | | | | | [phone] | | | +--------+ + + + [...] [place] | | | | | | [address] | | | | | | | | +--------+---------+ + + + | 04/03/ | Office | Cardiology | Zuleyka Castillo DO | | 2019 | Visit | | [address] | | | | | | [place] | | | | | | [address] | | | | | | | | +--------+---------+ + + + documented as of this encounter Visit Diagnoses Not on filedocumented in this encounter"
--- OUTSIDE RECORDS SUMMARY | ~2020-03-05 | XMS | Encounter Summary ---
Demographics + + + | Address | [address] | | | [place] [address] | + + + | Home Phone [...] Team Providers + +------+ + | Care Laundrette Owner Name | Role | Phone | + [...] + + | 12/19/ | Office | [facility] | Shay Dietz | Chronic low back | | 2013 | Visit | [address]SIATRY [address] | T, [address] | pain (Primary Dx); | | | | [address] | [place], [place] | Facet arthritis of | | | | [place] | [address] | lumbar region; Left | | | | [address] | | lumbar | | | | [phone] | | radiculopathy; | | | | [...] don't allow her to tr faisal to [place] very often. documented in this encounter Plan [...] [place] | | | | | | [id number] | | | | | | | | +--------+---------+ + + + | 04/03/ | Office | Cardiology | Zuleyka Castillo DO | | 2019 | Visit | | [address] | | | | | | [place] | | | | | | [id number] | | | | | | | [...]
--- OUTSIDE RECORDS SUMMARY | ~2020-03-05 | XMS | Encounter Summary ---
Demographics + + + | Address | [address] | | | [place] [address] | + + + | Home Phone [...] Author | [facility] | | | [...] Team Providers + +------+ + | Care Researcher Name | Role | Phone | [...] | region | [address], | AV [place], | | | | | Chronic low | [address] | [place] [address] | | | | | back pain | [place], [place] | Phone: | | | | | Facet | [address] | [phone] | | | | | arthritis of | Phone: | Fax: | | | | | lumbar | [phone] | [phone] | | | | | region | Fax: | | | | | | Scoliosis of | [phone] | | | | | | lumbar | | | | | | | spine Acute | | | | | | | renal | | | | | | | failure | | | | | | | (HCC) | | | | | | | Procedures | | | | | | | AL OFFICE | | | | | | [...] (Primary | | | | [place], [place] | [place] [address] | Dx); Chronic low | | | | [address] | [phone] | back pain; Facet | | | | [phone] | | arthritis of lumbar | | [...] [place] | | | | | | [address] | | | | | | | | +--------+---------+ + + + | 04/03/ | Office | Cardiology | Zuleyka Castillo DO | | | 2019 | Visit | | [address] | | | | | | [place] | | | | | | [address] | | | | | | | [...]
--- OUTSIDE RECORDS SUMMARY | ~2020-03-05 | XMS | Encounter Summary ---
Demographics + + + | Address | [address] | | | [place] [address] | + + + | Home Phone [...] Team Providers + +------+ + | Care Conciliation Court Judge Name | Role | Phone | [...] for | | 2016 | | at [facility] [address] | [address] | new pt appt) | | | | Brittany Mailcode: CH7C | [address] [place], | | | | | [facility] | [place] [address] | | | | | and Healing, | [phone] | | | | | [facility] | | | | | | Floor [place], [place] | | | | | | [address] | | | | | | [phone] | | | +--------+ + + + [...]
--- OUTSIDE RECORDS SUMMARY | ~2020-03-05 | XMS | Encounter Summary ---
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 Sheikh | [facility] | | Joanne presents to the fluoroscopy suite for a [facility] | | fluoroscopically-guided left L5-S1 [...] ST. | [address] | [place], [place] | [phone] | | [facility] | | [address] | | | - IMAGING | | | | + + + + + documented in this encounter Visit Diagnoses + + | Diagnosis | + + | Lumbar radiculopathy - Primary Thoracic or lumbosacral neuritis or radiculitis, | | unspecified | + + documented in this encounter"
--- OUTSIDE RECORDS SUMMARY | ~2020-03-05 | XMS | Encounter Summary ---
Demographics + + + | Address | [address] | | | [place] [address] | + + + | Home Phone [...] Team Providers + +------+ + | Care Freight Caller Name | Role | Phone | + [...] | | | | | | [place], [place] | | | | | | [address] | | | | | | [phone] | | | +--------+ + + + [...] for the 07/18/19 encounter (Preadmit Visit) with [facility] ROOM 5 Medication Sig Instructions Ascorbic [...] by elevating your feet Date Last Reviewed: 1548-7605 [employer]. [address] [place] [address]. All righ ts reserved. This information is [...] [place] | | | | | | [address] | | | | | | | | +--------+---------+ + + + | 04/03/ | Office | Cardiology | Zuleyka Castillo DO | | | 2019 | Visit | | [address] | | | | | | [place] | | | | | | [address] | | | | | | | [...] Antibody | Testing performed at | | [facility] | | | Screen | [facility];[address] | LABORATORY | | | | [address];[place] [address] | | | | + + + + + + + + | Specimen | + + | Blood | + + + + + + + | Performing | Address | City/State/Zipcode | Phone Number | | Organization | | | | + + + + + | [facility] | [address] | [place] [address] | [phone] | + + + + + MRSA [...] [facility] | | | | performed at [facility];[address] | | LABORATORY | | | | [address];[place], [place] | | | | | | [address] | | | | + + + + + + + + | Specimen | + + | Tissue - Both | | anterior nares (body | | structure) | + + + + + + + | Performing | Address | City/State/Zipcode | Phone Number | | Organization | | | | + + + + + | [facility] | [address] | [place] [address] | [phone] | + + + + + Protime [...] | | | | | performed at [facility];[address] | | | | | | [facility];[place], [place] | | | | | | [address] | | | | + + + + + + + + | Specimen | + + | Blood | + + + + + + + | Performing | Address | City/State/Zipcode | Phone Number | | Organization | | | | + + + + + | [facility] | [address] [facility] [address] | [place] [address] | [phone] | + + + + + PTT (07/18/2019 2:26 PM PDT) + + + + + + | Component | Value | Ref Range | Performed | Pathologist | | | | | At | Signature | + + + + + + | PTT | 29Comment: Testing | 23 - 32 seconds | [facility] | | | | performed at [facility];[address] | | LABORATORY | | | | [address];[place] | | | | | | [address] | | | | + + + + + + + + | Specimen | + + | Blood | + + + + + + + | Performing | Address | City/State/Zipcode | Phone Number | | Organization | | | | + + + + + | [facility] | [address] | [place] [address] | [phone] | + + + + + Comprehensive [...] | | | | | | [facility]D [facility] traceable | | | | | | equation.Testing | | | | | | performed at [facility], [address] | | | | | | [facility], | | | | | | [place] [address] | | | | + + + + + + + + | Specimen | + + | Blood | + + + + + + + | Performing | Address | City/State/Zipcode | Phone Number | | Organization | | | | + + + + + | [facility] | [address] | [place] [address] | [phone] | + + + + + CBC [...] 0.03Comment: Testing | 0.00 - 0.10 | [facility] | | | Absolute | performed at [facility], [address] | K/uL | LABORATORY | | | | [address], | | | | | | [place] [address] | | | | + + + + + + + + | Specimen | + + | Blood | + + + + + + + | Performing | Address | City/State/Zipcode | Phone Number | | Organization | | | | + + + + + | [facility] | [address] | [place] [address] | [phone] | + + + + + ECG [...]
--- OUTSIDE RECORDS SUMMARY | ~2020-03-05 | XMS | Encounter Summary ---
Demographics + + + | Address | [address] | | | [place] [address] | + + + | Home Phone [...] + + + | Author | [facility] | + + + | Organization | [facility] | + + + | Address | Unknown | + + + | Phone | Unavailable | + + + Support + + +---------+ + | Name | Relationship | Address | Phone | + + +---------+ + | Royce Menchaca | ECON | Unknown | | + + +---------+ + Care Team Providers + +------+ + | Care Signal Helper Name | Role | Phone | [...] for | | 2016 | | at [facility] [address] | [address] | new pt appt) | | | | Brittany Mailcode: CH7C | [address] [place], | | | | | [facility] | [place] [address] | | | | | and Healing, | [phone] | | | | | [facility] | | | | | | Floor [place], [place] | | | | | | [address] | | | | | | [phone] | | | +--------+ + + + [...]
--- OUTSIDE RECORDS SUMMARY | ~2020-03-05 | XMS | Encounter Summary ---
Demographics + + + | Address | [address] | | | [place] [address] | + + + | Home Phone [...] Providers + +------+ + | Care Board Filler Name | Role | Phone | [...] | | [address] | [place] [address] | | | | | [place] | [phone] | | | | | [address] | | | | | | [phone] | | | +--------+ + + + [...] [place] | | | | | | [address] | | | | | | | | +--------+---------+ + + + | 04/03/ | Office | Cardiology | Zuleyka Castillo DO | | 2019 | Visit | | [address] | | | | | | [place] | | | | | | [address] | | | | | | | | +--------+---------+ + + + documented as of this encounter Visit Diagnoses Not on filedocumented in this encounter"
--- OUTSIDE RECORDS SUMMARY | ~2020-03-05 | XMS | Encounter Summary ---
Demographics + + + | Address | [address] | | | [place] [address] | + + + | Home Phone [...] Team Providers + +------+ + | Care Recyclable Materials Distributor Name | Role | Phone | + +------+ + | Miquel Calhoun MD | PCP | | + +------+ + Encounter Details +--------+ + + + + | Date | Type | Department | Care Team | Description | +--------+ + + + + | 11/29/ | Documentati | [facility] | Khushbu Cortez, | | | 2013 | on | [facility] | EXPERIMENTAL PLASTICS FABRICATOR [place], [place] | | | | | [address] | [address] | | | | | [address] | | | | | | R[place], [address] [place] [address] | | | | | | [place], [place] | | | | | | [address] | | | | | | [phone] | | | +--------+ + + + [...]
--- OUTSIDE RECORDS SUMMARY | ~2020-03-05 | XMS | Encounter Summary ---
Demographics + + + | Address | [address] | | | [place] [address] | + + + | Home Phone [...] Team Providers + +------+ + | Care Chalk Machine Operator Name | Role | Phone [...] | | (HCC) | [address] | [place], [place] | | | | | Procedures | [place], [place] | [address] | | | | | [place] | [address] | Phone: | | | | | Stress Test | Phone: | [phone] | | | | | (Exercise) | [phone] | Fax: | | | | | | Fax: | [phone] | | | | | | [phone] | | + +--------+ + + + [...] DR TOURE | | | | | ([facility]) | [place], | [place] | | | | | Procedures | [place] | [address] Phone: | | | | | consult | [address] | [phone] | | | | | | Phone: | Fax: | | | | | | [phone] | [phone] | | | | | | Fax: | | | | | | | [phone] | | + +--------+ + + + + Encounter Details +--------+---------+ + + + | Date | Type | Department | Care Team | Description | +--------+---------+ + + + | 02/27/ | Office | [facility] | Zuleyka Castillo DO | Palpitations | | 2020 | Visit | CARDIOLOGY [place] | [address] | (Primary Dx); | | | | [address] | [place] [address] [place], [place] | Paroxysmal atrial | | | | [address] | [address] | fibrillation (HCC) | | | | [place] | | | | | | [address] | | | | | | [phone] | | | +--------+---------+ + + + [...] Castillo DO - 02/28/2020 1:00 PM PDT [facility] Cardiology Cardiology Consult Note Reason for [...] Date Acid reflux disease Acute renal failure ([facility]) April 2013 Adverse effect of anesthesia hx hallucinations after anesthesia x 3 yrs ago. Anesthesia hallucinated after bladder repair Arthralgia Arthritis Asthma Asthma Back pain Cancer ([facility]) 2004 breast Cataract Cerebrovascular accident (CVA) ([facility]) no per pt Chronic back pain Chronic back pain Chronic constipation Concussion 07/2015 Preceeded by seizure Constipation COPD (chronic obstructive pulmonary disease) ([facility]) Degenerative disc disease Depression Depression Diabetes mellitus ([facility]) Diabetes mellitus, type 2 ([facility]) diet controlled Diabetes type 2, controlled ([facility]) diet controlled Diarrhea Disorder [...] KYPHOPLASTY; Surgeon: Alfredo Casillas DO; Location: [facility] MAIN OR; Service: Pa in Management; Laterality: N/A; L5 FRACTURE SURGERY ANKLE HERNIA REPAIR HYSTERECTOMY HYSTERECTOMY LAMINECTOMY N/A 08/03/2019 Procedure: LAMINOTOMY THORACIC / LUMBAR W/ PLACEMENT SPINAL CORD STIMULATOR; Surgeon: Suly Hutchins MD; Location: [facility] [place] MAIN OR OTHER SURGICAL HISTORY EPIDURAL STEROID [...] level: Not on file Occupational History Occupation: [employer] Social Needs Financial resource strain: Not on [...] file Gets together: Not on file Attends anabaptist service: Not on file Active member of [...] atrial fibrillation while she was in the [facility] with pneumonia. She has had a few brief episodes since that hospitalization. She has bee n started on anticoagulation with Xarelto for a [id number] score of 2. She reports that this medication was too expensive for her. We have her Rx savings info for Eliquis 5m po bid. Chadd quiroz has had some issues with low blood pressure on metoprolol tartrate. We will switch over t o metoprolol succinate at a lower dose. If blood pressure continues to be an issue, may con asset accountant switching over to digoxin. She had a [...] [place] | | | | | | [address] | | | | | | | [...]
--- OUTSIDE RECORDS SUMMARY | ~2020-03-05 | XMS | Encounter Summary ---
Demographics + + + | Address | [address] | | | [place] [address] | + + + | Home Phone [...] Team Providers + +------+ + | Care Veneer Jointer Helper Name | Role | Phone | + +------+ + | Wendi Aiken | PCP | | + +------+ + Encounter Details +--------+ + + + + | Date | Type | Department | Care Team | Description | +--------+ + + + + | 04/07/ | Imaging | [facility] | Provider, | | | 2018 | Exam | MED CTR EXTERNAL | MD [address] | | | | | IMAGING [address] | [address] | | | | | [facility] | [place] [address] | | | | | [place] [address] | | | | | | [phone] | | | +--------+ + + + [...] [place] | | | | | | [address] | | | | | | | | +--------+---------+ + + + | 04/03/ | Office | Cardiology | Zuleyka Castillo DO | | | 2019 | Visit | | [address] | | | | | | [place] | | | | | | [address] | | | | | | | [...]
--- OUTSIDE RECORDS SUMMARY | ~2020-03-05 | XMS | Encounter Summary ---
Demographics + + + | Address | [address] | | | [place] [address] | + + + | Home Phone [...] Team Providers + +------+ + | Care Tour Actor Name | Role | Phone | + [...] | | [address] [place] | [place] [address] | | | | | [place], [place] | [phone] | | | | | [address] | | | | | | [phone] | | | +--------+ + + + [...] [place] | | | | | | [address] | | | | | | | | +--------+---------+ + + + | 04/03/ | Office | Cardiology | Zuleyka Castillo DO | | | 2019 | Visit | | [address] | | | | | | [place] | | | | | | [address] | | | | | | | | +--------+---------+ + + + documented as of this encounter Visit Diagnoses Not on filedocumented in this encounter"
--- OUTSIDE RECORDS SUMMARY | ~2020-03-05 | XMS | Encounter Summary ---
Demographics + + + | Address | [address] | | | [place] [address] | + + + | Home Phone [...] Providers + +------+ + | Care Technical Staff Assistant Name | Role | Phone | + +------+ + PCP | Unavailable | + +------+ + Encounter Details +--------+ + + + + | Date | Type | Department | Care Team | Description | +--------+ + + + + | 08/31/ | Hospital | [facility] | | | | 2010 | Encounter | MED CTR LABORATORY | | | | | | [address] | | | | | | [place] | | | | | | [address] | | | | | | [phone] | | | +--------+ + + + [...] [place] | | | | | | [address] | | | | | | | | +--------+---------+ + + + | 04/03/ | Office | Cardiology | Zuleyka Castillo DO | | | 2019 | Visit | | [address] | | | | | | [place] [facility] [place] | | | | | | [address] | | | | | | | [...] + | [address] | [address] | [place], [place] | [phone] | | [facility] | | [address] | | | - LABORATORY | | | | + + + + + | [address] | [address] | [place], [place] | | | [facility] | | [address], [facility] | | | - LABORATORY | | | | + + + + + documented in this encounter Visit Diagnoses Not on filedocumented in this encounter"
--- OUTSIDE RECORDS SUMMARY | ~2020-03-05 | XMS | Encounter Summary ---
Demographics + + + | Address | [address] | | | [place] [address] | + + + | Home Phone [...] Providers + +------+ + | Care Water Main Pipe Layer Name | Role | Phone | [...] + + | 07/24/ | Telephone | [facility] | Maykel Hutchins MD | Pre-op Question | | 2019 | | [facility] | [address] | | | | | ORTHOPEDIC SPINE | [place] | | | | | [address] [place] | [place] [address] | | | | | [place] | [phone] | | | | | [address] | | | | | | [phone] | | | +--------+ + + + [...] [place] | | | | | | [address] | | | | | | | | +--------+---------+ + + + | 04/03/ | Office | Cardiology | Zuleyka Castillo DO | | | 2020 | Visit | | [address] | | | | | | [place] | | | | | | [address] | | | | | | | | +--------+---------+ + + + documented as of this encounter Visit Diagnoses Not on filedocumented in this encounter"
--- OUTSIDE RECORDS SUMMARY | ~2020-03-05 | XMS | Encounter Summary ---
Demographics + + + | Address | [address] | | | [place] [address] | + + + | Home Phone [...] Providers + +------+ + | Care Book Shelver Name | Role | Phone | + [...] [address] | [place] | | | | | [place] | [address] | | | | | [address] | | | | | | [phone] | | | +--------+ + + + [...] [place] | | | | | | [address] | | | | | | | | +--------+---------+ + + + | 04/03/ | Office | Cardiology | Zuleyka Castillo DO | | 2019 | Visit | | [address] | | | | | | [place] | | | | | | [id number] | | | | | | | | +--------+---------+ + + + documented as of this encounter Visit Diagnoses + + | Diagnosis | + + | Back pain - Primary Backache, unspecified | + + documented in this encounter"
--- OUTSIDE RECORDS SUMMARY | ~2020-03-05 | XMS | Encounter Summary ---
Demographics + + + | Address | [address] | | | [place] [address] | + + + | Home Phone [...] Providers + +------+ + | Care Farm Machinery Assembler Name | Role | Phone | + +------+ + | Miquel Calhoun MD | PCP | | + +------+ + Encounter Details +--------+ + + + + | Date | Type | Department | Care Team | Description | +--------+ + + + + | 11/05/ | Telephone | [facility] | Khushbu Cortez, | | | 2013 | | [facility] | [place], [place] | | | | | [address] | [address] | | | | | [address] | | | | | | Ridd[place], [address] [place] [address] | | | | | | [place], [place] | | | | | | [address] | | | | | | [phone] | | | +--------+ + + + [...]
--- OUTSIDE RECORDS SUMMARY | ~2020-03-05 | XMS | Encounter Summary ---
Demographics + + + | Address | [address] | | | [place] [address] | + + + | Home Phone [...] Team Providers + +------+ + | Care Pile Header Name | Role | Phone | + [...] | | | | | [address] [place], | | | | | | [place] [address] | | | +--------+ + + + [...]
--- OUTSIDE RECORDS SUMMARY | ~2020-03-05 | XMS | Encounter Summary ---
Demographics + + + | Address | [address] | | | [place] [address] | + + + | Home Phone [...] Team Providers + +------+ + | Care Making Line Worker Name | Role | Phone | [...] | | | [place], [place] | [address] | | | | | [address] | | | | | | [phone] | | | +--------+ + + + [...] [place] | | | | | | [address] | | | | | | | | +--------+---------+ + + + | 04/03/ | Office | Cardiology | Zuleyka Castillo DO | | | 2019 | Visit | | [address] | | | | | | [place] | | | | | | [address] | | | | | | | | +--------+---------+ + + + documented as of this encounter Visit Diagnoses Not on filedocumented in this encounter"
--- OUTSIDE RECORDS SUMMARY | ~2020-03-05 | XMS | Encounter Summary ---
Demographics + + + | Address | [address] | | | [place] [address] | + + + | Home Phone [...] Providers + +------+ + | Care Home Help Aide Name | Role | Phone | [...] + + | 02/14/ | Office | [facility] | Denys Sibley, | S/P insertion of | | 2020 | Visit | NEUROSCIENCE OTSEGO | DO [address] | spinal cord | | | | [address] | [address] [place] | stimulator (Primary | | | | [address] | [address] | Dx); Spinal stenosis | | | | [place], [place] | | of lumbosacral | | | | [address] | | region; Lumbar | | | | [phone] | | region somatic | | | [...] were also pertinent to this visit. Kori McintoshAndranyu [facility] presents for chronic pain evaluation and management. [...] not limited to physical therapy, critical care specialist, acupuncture, massage therapy, and nutritional healt [...] Author Status Filed Medication Agreement Rupa Nye, Varnish Dipper Active 11/14/2019 1:49 PM Pain Contract- Dr. [...] seizure Constipation COPD (chronic obstructive pulmonary disease) ([facility]) Degenerative disc disease Depression Depression Diabetes mellitus ([facility]) Diabetes mellitus, type 2 ([facility]) diet controlled Diabetes type 2, controlled ([facility]) diet controlled Diarrhea Disorder of [...] Scoliosis Scoliosis of lumbar spine 04/17/2014 Seizure ([facility]) one due to meds, two [...] seizure Constipation COPD (chronic obstructive pulmonary disease) ([facility]) Degenerative disc disease Depression Depression Diabetes mellitus ([facility]) Diabetes mellitus, type 2 ([facility]) diet controlled Diabetes type 2, controlled ([facility]) diet controlled Diarrhea Disorder of [...] KYPHOPLASTY; Surgeon: Alfredo Casillas DO; Location: [facility] OR; Service: Pa in Management; [...] symptoms. Patient is not traveled to an [facility] area in the last 8 to 10 weeks. Current medication include Solway 10/325 1 p.o. every 4 hours as [...] on her curre nt medication program of Solway 10/325 1 p.o. every 4 hours as [...] = high risk) Daily Opioid Dose = Solway 10/325 1 p.o. every 4 hours as [...] physical therapy, massage therapy, acupuncture, critical care specialist, along with niki mmended psychological counseling, either privately, or in group sessions offered by private care individuals, community services, or jewish organizations. Appropriate referrals were made at patient [...] and coordination of care with other health career placement specialist and monitoring labs results, other test results and [facility] including [facility] and/or [facility] prescription monitoring systems. This document has been created using Databox Voice Recognition software and Infinio. The entry has been reviewed for content and accuracy, but there may still exist "sound alike" laundromat worker word errors and/or unintended additions and deletions. [...] [place] | | | | | | [address] | | | | | | | | +--------+---------+ + + + | 04/03/ | Office | Cardiology | Zuleyka Castillo DO | | | 2019 | Visit | | [address] | | | | | | [place] | | | | | | [address] | | | | | | | [...]
--- OUTSIDE RECORDS SUMMARY | ~2020-03-05 | XMS | Encounter Summary ---
Demographics + + + | Address | [address] | | | [place] [address] | + + + | Home Phone [...] Providers + +------+ + | Care Sewer And Cutter Finger Buff Material Name | Role | Phone | + [...] [place] | [place], | Injections | | 2016 | | PH[address]SI[address]RY [address] | [address] | | | | | [address] | [address] | | | | | [place], [place] | [place] [address] | | | | | [address] | [phone] | | | | | [phone] | | | +--------+ + + + [...] [place] | | | | | | [address] | | | | | | | | +--------+---------+ + + + | 04/03/ | Office | Cardiology | Zuleyka Castillo DO | | | 2019 | Visit | | [address] | | | | | | [place] | | | | | | [address] | | | | | | | | +--------+---------+ + + + documented as of this encounter Visit Diagnoses Not on filedocumented in this encounter"
--- OUTSIDE RECORDS SUMMARY | ~2020-03-05 | XMS | Encounter Summary ---
Demographics + + + | Address | [address] | | | [place] [address] | + + + | Home Phone [...] Team Providers + +------+ + | Care Drag Car Racer Name | Role | Phone | + [...] [facility] [address] | [address] | | | | | Ave Mailcode: CH7C | [facility] [address] [facility] | | | | | [facility] | [place] [address] | | | | | and Healing, | [phone] | | | | | [facility] | | | | | | Floor [place], [place] | | | | | | [address] | | | | | | [phone] | | | +--------+ + + + [...]
--- OUTSIDE RECORDS SUMMARY | ~2020-03-05 | XMS | Encounter Summary ---
Demographics + + + | Address | [address] | | | [place] [address] | + + + | Home Phone [...] Providers + +------+ + | Care Corporate Compliance Officer Name | Role | Phone | + +------+ + | No, Physician | PCP | Unavailable | + +------+ + Encounter Details +--------+ + + + + | Date | Type | Department | Care Team | Description | +--------+ + + + + | 01/03/ | [facility] | [facility] | Shay Dietz | | | 2013 | Encounter | MED CTR XRAY [address] | [address], [address] | | | | | [place] | [place] | | | | | [place] [address] | [address] | | | | | [phone] | | | +--------+ + + + [...] [place] | | | | | | [address] | | | | | | | | +--------+---------+ + + + | 04/03/ | Office | Cardiology | Zuleyka Castillo DO | | | 2019 | Visit | | [address] | | | | | | [place] | | | | | | [id number] | | | | | | | | +--------+---------+ + + + documented as of this encounter Visit Diagnoses Not on filedocumented in this encounter"
--- OUTSIDE RECORDS SUMMARY | ~2020-03-05 | XMS | Encounter Summary ---
Demographics + + + | Address | [address] | | | [place] [address] | + + + | Home Phone [...] Team Providers + +------+ + | Care Draw Bench Operator Name | Role | Phone | [...] | | | | [address] [place] | [place] [address] | | | | | [place] | [phone] | | | | | [address] | | | | | | [phone] | | | +--------+ + + + [...] [place] | | | | | | [address] | | | | | | | | +--------+---------+ + + + | 04/03/ | Office | Cardiology | Zuleyka Castillo DO | | | 2020 | Visit | | [address] | | | | | | [place] | | | | | | [phone] | | | | | | | | +--------+---------+ + + + documented as of this encounter Visit Diagnoses Not on filedocumented in this encounter"
--- OUTSIDE RECORDS SUMMARY | ~2020-03-05 | XMS | Encounter Summary ---
Demographics + + + | Address | [address] | | | [place] [address] | + + + | Home Phone [...] Team Providers + +------+ + | Care Aerial Photographer Name | Role | Phone | [...] | | | [place], [place] | [address] | | | | | [address] | | | | | | [phone] | | | +--------+ + + + [...] [place] | | | | | | [address] | | | | | | | | +--------+---------+ + + + | 04/03/ | Office | Cardiology | Zuleyka Castillo DO | | 2019 | Visit | | [address] | | | | | | [place] [facility] | | | | | | [address] | | | | | | | | +--------+---------+ + + + documented as of this encounter Visit Diagnoses Not on filedocumented in this encounter"
--- OUTSIDE RECORDS SUMMARY | ~2020-03-05 | XMS | Encounter Summary ---
Demographics + + + | Address | [address] | | | [place] [address] | + + + | Home Phone [...] Providers + +------+ + | Care Back Hoe Machine Operator Name | Role | Phone [...] 2012 | | [facility] | [place], [place] | | | | | [address] | [address] | | | | | [address] | | | | | | [place], [address] [place] [address] | | | | | | [place], [place] | | | | | | [address] | | | | | | [phone] | | | +--------+ + + + [...]
--- OUTSIDE RECORDS SUMMARY | ~2020-03-05 | XMS | Encounter Summary ---
Demographics + + + | Address | [address] | | | [place] [address] | + + + | Home Phone [...] Providers + +------+ + | Care Geospatial Scientist Name | Role | Phone | [...] + + | 12/17/ | Office | [facility] | Denys Sibley, | S/P insertion of | | 2019 | Visit | [facility] | DO [address] | spinal cord | | | | [address]Y [address] | [address] [place], [place] | stimulator (Primary | | | | [address] | [address] | Dx); Spinal stenosis | | | | [place], [place] | | of lumbosacral | | | | [address] | | region; Lumbar | | | | [phone] | | region somatic | | | [...] we give her chronic pain syndrome is Southfields 10/325 1 p.o. every 4 ho urs [...] including but not limited to physical therapy, skin care technician, acupuncture, massage therapy, and nutritional healt [...] Author Status Filed Medication Agreement Rupa Nye, Core Composer Machine Tender Active 11/14/2019 1:49 PM Pain Contract- Dr. Sibley 11/14/2019 PEG Pain screening tool (Pain, enjoyment, general activity) Total score: (Printable questionnaires in Belizean ) Interpretation of Total Score: PEG scores are used to track changes over time. It should de crease after therapy has begun. Last 4 PEG Scores: No flowsheet data found. Opioid Risk Tool (ORT): Total Score Pulse: 61 Resp: 16 BP: 116/53 SpO2: 100 % (From Chronic Pain tab; printable questionnaires in Belizean) Interpretation of Total Score: 0 to 3 [...] CORD STIMULATOR; Surgeon: Suly Hutchins MD; Location: [facility] OR OTHER SURGICAL HISTORY EPIDURAL STEROID [...] reviewed, listed controlled substances are consistent with [facility] prescriptions and patient reported use. [...] = high risk) Daily Opioid Dose = [place]fields 10/325 1 p.o. every 4 hours as [...] imited to physical therapy, massage therapy, acupuncture, skin care technician, along with niki mmended psychological counseling, [...] weeks. This document has been created using [email or web address] Voice Recognition software and Twitt2go. The entry has been reviewed for content and accuracy, but there may still exist "sound alike" box toe flanger stitchdowns word errors and/or unintended additions and deletions. [...]
--- OUTSIDE RECORDS SUMMARY | ~2020-03-05 | XMS | Encounter Summary ---
Demographics + + + | Address | [address] | | | [place] [address] | + + + | Home Phone [...] Team Providers + +------+ + | Care Pen Tester Name | Role | Phone | [...] | | 2016 | | at [facility] [address] | [address] | new pt appt) | | | | [place] Mailcode: CH7C | [address] [place], | | | | | [facility] | [place] [address] | | | | | and Healing, | [phone] | | | | | [facility] | | | | | | Floor [place], [place] | | | | | | [address] | | | | | | [phone] | | | +--------+ + + + [...]
--- OUTSIDE RECORDS SUMMARY | ~2020-03-05 | XMS | Encounter Summary ---
Demographics + + + | Address | [address] | | | [place] [address] | + + + | Home Phone [...] Team Providers + +------+ + | Care Theoretical Physics Teacher Name | Role | Phone | [...] | | | stenosis | B | [address] | | | | | | [place], [place] | Phone: | | | | | | [address] | [phone] | | | | | | Phone: | Fax: | | | | | | [phone] | [phone] | | | | | | Fax: | | | | | | | [phone] | | + +--------+ + + + + Encounter Details +--------+---------+ + + + | Date | Type | Department | Care Team | Description | +--------+---------+ + + + | 06/18/ | Office | [facility] | Denys Sibley, | SACROILIITIS | | 2018 | Visit | [facility] | DO [address] | (Primary Dx); | | | | [address] | [address] [place] | Spondylosis of | | | | [address] | [address] | lumbar region | | | | [place], [place] | | without myelopathy | | | | [address] | | or radiculopathy; | | | | [phone] | | BACK PAIN, LUMBAR; | | [...] | | | | | | pain; retirement | | | | | | current [...] the other nostri l. Talk to your detail technician regarding the use of this medicine in children. While this drug m ay be prescribed for children as young as newborns for selected conditions, precautions do a pply. What side effects may I notice from receiving this medicine? Side effects that you should report to your doctor or health point of care technician as soon as p ossible: allergic reactions like skin rash, itching or hives, swelling of the face, lips, or tong ue breathing problems fast, irregular heartbeat high blood pressure pain that was controlled by narcotic pain medicine seizures Side effects that usually do not require medical attention (report to your doctor or health point of care technician if they continue or are [...] phone number of your doctor or health point of care technician and local hospital ready. You may need to have additional doses of this medicine. Each nasal spray contains a single dose. Some emergencies may require additional doses. After use, bring the treated person to the nearest hospital or call 911. Make sure the [facility] health point of care technician knows that the person has [...] repair Arthralgia Asthma Asthma Cancer ([facility]) 2004 breast Cerebrovascular accident (CVA) ([facility]) [...] of lumbar spine 04/17/2014 Seizure ([facility]) one due to meds, two due [...] therapy, mass age therapy, acupuncture, customer care agent, along with recommended psychological counseling , either [...] regarding this and or current official [facility] approved disposal sites. Continue current medication regime with these changes and/ or additions :refill her fenta nyl patch 25 by grams applied to the anterior chest wall q72 hours, and Norco7.5/325 one po q6 hours prn pain Patient understands and is in full agreement with the above plan, Will return to office in 4 weeks, [facility] was consulted and appears appropriate, [...] dysfunction are noted in men and women. [facility] men will suffer erectile dysfunction with [...] complications with the passage of time. 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
--- OUTSIDE RECORDS SUMMARY | ~2020-03-05 | XMS | Encounter Summary ---
Demographics + + + | Address | [address] | | | [place] [address] | + + + | Home Phone [...] Team Providers + +------+ + | Care Mattress Stuffer Name | Role | Phone | + [...] + + | 08/31/ | Telephone | [facility] | Alfredo Casillas DO | Triage | | 2019 | | [facility] | [address] | | | | | MEDICINE [place] | [place] [address] | | | | | [address] | [phone] | | | | | [place], [place] | | | | | | [address] | | | | | | [phone] | | | +--------+ + + + [...] [place] | | | | | | [address] | | | | | | | | +--------+---------+ + + + | 04/03/ | Office | Cardiology | Zuleyka Castillo DO | | | 2020 | Visit | | [address] | | | | | | [place] | | | | | | [address] | | | | | | | | +--------+---------+ + + + documented as of this encounter Visit Diagnoses Not on filedocumented in this encounter"
--- OUTSIDE RECORDS SUMMARY | ~2020-03-05 | XMS | Encounter Summary ---
Demographics + + + | Address | [address] | | | [place] [address] | + + + | Home Phone [...] Team Providers + +------+ + | Care Booking Prizer Name | Role | Phone | + +------+ + | No, Physician | PCP | Unavailable | + +------+ + Encounter Details +--------+ + + + + | Date | Type | Department | Care Team | Description | +--------+ + + + + | 01/08/ | [facility] | [facility] | Shay Dietz | Lumbar radiculopathy | | 2014 | Encounter | MED CTR XRAY [address] | [address] | | | | | [place] | [facility] [place] | | | | | [place] [address] | [address] | | | | | [phone] | | | | | | | Produce Laborer, [place] | | | | | | [...] [place] | | | | | | [address] | | | | | | | | +--------+---------+ + + + | 04/03/ | Office | Cardiology | Zuleyka Castillo DO | | | 2019 | Visit | | [address] | | | | | | [place] | | | | | | [address] | | | | | | | [...] radiculopathy ICD-9 Code 724.4 Ms. Sheikh | [facility] | | Joanne presents to the fluoroscopy suite for a | [facility] | | fluoroscopically-guided left L5-S1 [...] + | [facility] | [address] | [place], [place] | [phone] | | [facility] | | [address] | | | - IMAGING | | [...]
--- OUTSIDE RECORDS SUMMARY | ~2020-03-05 | XMS | Encounter Summary ---
Demographics + + + | Address | [address] | | | [place] [address] | + + + | Home Phone [...] Providers + +------+ + | Care Machine Pie Maker Name | Role | Phone | [...] | | [address] | [place] [address] | | | | | [place] | [phone] | | | | | [address] | | | | | | [phone] | | | +--------+ + + + [...] [place] | | | | | | [id number] | | | | | | | | +--------+---------+ + + + | 04/03/ | Office | Cardiology | Zuleyka Castillo DO | | 2019 | Visit | | [address] | | | | | | [place] | | | | | | [address] | | | | | | | | +--------+---------+ + + + documented as of this encounter Visit Diagnoses Not on filedocumented in this encounter"
--- OUTSIDE RECORDS SUMMARY | ~2020-03-05 | XMS | Encounter Summary ---
Demographics + + + | Address | [address] | | | [place] [address] | + + + | Home Phone [...] Providers + +------+ + | Care Home Care Nurse Name | Role | Phone [...] as of this encounter Discharge Summaries Interface, Audiovisual Technician In - 08/03/2006 2:03 AM PDT [id number]/ [id number] ROSANA Suarez [id number] Admission Date: 06/26/2006 Discharge Date: 06/30/2006 Staff [...] up with her primary care doctor in [place] to get lab followup within the [...] psychiatrist, Dr. Pham; his phone number is [phone]. She is to make a followup appointment with him within the next week. The patient is also to follow up with Dr. Kel Young, he is located as well in [place], [place], and is associated with [facility]. She is to follow up with him for repeat electrolytes including potassium, magnesium, and phosphorus within the next several days. Monroe Disla M.D. Sherita Madrid M.D., M.P.H. / [id number] / [id number] / [id number] / [id number] cc: * Dr. Pham [facility], [place] FAX: [phone] Kel Young M.D. Electronically signed by Sherita Madrid 08-02-2006 11:01:13 AM documented i n this encounter Plan of Treatment Not on filedocumented as of this encounter Visit Diagnoses Not on filedocumented in this encounter"
--- OUTSIDE RECORDS SUMMARY | ~2020-03-05 | XMS | Encounter Summary ---
Demographics + + + | Address | [address] | | | [place] [address] | + + + | Home Phone [...] Providers + +------+ + | Care Receiving Dock Checker Name | Role | Phone | [...] Provider Unknown | | | | | [place], [place] | | | | | | [address] | (Fax) | | | | | [phone] | | | +--------+ + + + [...] [place] | | | | | | [address] | | | | | | | | +--------+---------+ + + + | 04/03/ | Office | Cardiology | Zuleyka Castillo DO | | | 2019 | Visit | | [address] | | | | | | [place] | | | | | | [id number] | | | | | | | [...]
--- OUTSIDE RECORDS SUMMARY | ~2020-03-05 | XMS | Encounter Summary ---
Demographics + + + | Address | [address] | | | [place] [address] | + + + | Home Phone [...] +------+ + | Care Vice President Of Product Marketing Name | Role | Phone | [...] | | | [place], [place] | [place] [address] | | | | | [address] | [phone] | | | | | [phone] | | | +--------+ + + + [...] [place] | | | | | | [address] | | | | | | | | +--------+---------+ + + + | 04/03/ | Office | Cardiology | Zuleyka Castillo DO | | | 2019 | Visit | | [address] | | | | | | [place] | | | | | | [address] | | | | | | | | +--------+---------+ + + + documented as of this encounter Visit Diagnoses Not on filedocumented in this encounter"
--- OUTSIDE RECORDS SUMMARY | ~2020-03-05 | XMS | Encounter Summary ---
Demographics + + + | Address | [address] | | | [place] [address] | + + + | Home Phone [...] Providers + +------+ + | Care Senior Application Software Engineer Name | Role | Phone | + +------+ + PCP | Unavailable | + +------+ + Encounter Details +--------+ + + + + | Date | Type | Department | Care Team | Description | +--------+ + + + + | 10/31/ | Hospital | [facility] | | | | 1999 - | Encounter | MED CTR CANCER | | | | | | [address] | | | | 03/16/ | | [place], [place] | | | | 2000 | | [address] | | | | | | [phone] | | | +--------+ + + + [...] [place] | | | | | | [address] | | | | | | | | +--------+---------+ + + + | 04/03/ | Office | Cardiology | Zuleyka Castillo DO | | | 2020 | Visit | | [address] | | | | | | [place] | | | | | | [address] | | | | | | | | +--------+---------+ + + + documented as of this encounter Visit Diagnoses Not on filedocumented in this encounter"
--- OUTSIDE RECORDS SUMMARY | ~2020-03-05 | XMS | Encounter Summary ---
Demographics + + + | Address | [address] | | | [place] [address] | + + + | Home Phone [...] Providers + +------+ + | Care Cable Television Technician Name | Role | Phone | + +------+ + | Miquel Calhoun MD | PCP | | + +------+ + Encounter Details +--------+ + + + + | Date | Type | Department | Care Team | Description | +--------+ + + + + | 11/12/ | Telephone | [facility] | Khushbu Cortez, | | | 2013 | | [facility] | [place], [place] | | | | | [address] | [address] | | | | | [address] | | | | | | [place], [address] [place] [address] | | | | | | [place], [place] | | | | | | [address] | | | | | | [phone] | | | +--------+ + + + [...]
[~2020-03-05 16:32] MED LIST changes: +METOPROLOL SUCC25 MG PO
--- OUTSIDE RECORDS SUMMARY | 2020-03-05 16:34 | XMS ---
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 Care History Medical/Surgical 09/25/2019 [facility] Patient aware of PCP appt. on 10/17/2019 and of the walk in clinic, but stated she used ED because she has respiratory issues with fever and was too weak to walk. 08/08/2019 [facility] - PATIENT HAS AN APT WITH PCP DR ONEILL ON 10/17/19 02/06/2019 [facility] - Patient is currently established with [facility]. If patient is seen in the ED during business hours. Please contact [facility] at [facility]. Care Recommendation: This patient has [...] providing care. E.D. VISIT COUNT (12 MO.) Matt Enrique TOTAL 8 NOTE: Visits indicate total known visits. 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 - Type 2 diabetes mellitus without complications - Allergy status to other drugs, medicaments and biological sub 09/28/2019 11:50 [facility] [place] TYPE: Emergency COMPLAINT: - CHEST PAIN 09/24/2019 15:43 [facility] [place] TYPE: Emergency COMPLAINT: - NAUSEA, VOMITING, DIARRHEA DIAGNOSES: - Other 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 control service representative (current) 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 - Bipolar disorder, unspecified - Nausea with vomiting, unspecified - Chronic obstructive pulmonary disease, unspecified - Urinary tract infection, site not specified - 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 - 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 - Diarrhea, unspecified - Type 2 diabetes mellitus without complications - Allergy status to other drugs, medicaments and biological sub 08/09/2019 11:06 [facility] [place] TYPE: Emergency COMPLAINT: - POST OP PROBLEM DIAGNOSES: - 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 - Chronic obstructive pulmonary disease, unspecified - Allergy status to other drugs, medicaments and biological sub - Type 2 diabetes mellitus without complications - Low back pain - Major depressive disorder, single episode, unspecified - Other chronic pain - 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 - Other acute postprocedural pain - Other half-way (current) 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 08/07/2019 22:09 [facility] [place] TYPE: Emergency COMPLAINT: - BACK PAIN DIAGNOSES: - Other termite control service representative (current) 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 - Encounter for change or removal of surgical wound dressing - Allergy status to other drugs, medicaments and biological sub - Low back pain - Type 2 diabetes mellitus without complications 05/27/2019 [...] status to other drugs, medicaments and biological sub - Fasciculation - Other termite control service representative (current) 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 - Type 2 diabetes mellitus without complications - Bipolar disorder, unspecified - group home (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 of opiate analgesic - Major depressive disorder, single episode, unspecified INPATIENT VISIT TRACKING (12 MO.) 09/28/2019 14:01 [facility] [place] TYPE: Medical Surgical COMPLAINT: - PNEUMONIA DIAGNOSES: - Hypo-osmolality and hyponatremia - Other specified anxiety disorders - Hypothyroidism, unspecified - Chronic pain syndrome - Hypovolemia - Low back pain - Other half-way (current) 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 - Paroxysmal atrial fibrillation - Other psychoactive substance dependence, uncomplicated - Other psychoactive substance dependence, uncomplicated - Low back pain - Allergy status to other drugs, medicaments and biological sub - Other termite control service representative (current) 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 - Pneumonia due to Streptococcus pneumoniae - Allergy status to other drugs, medicaments and biological sub - Hypothyroidism, unspecified - Chronic obstructive pulmonary disease with acute lower respir - Paroxysmal atrial fibrillation - Hypovolemia - Other specified anxiety disorders - Chronic pain syndrome - Hypo-osmolality and hyponatremia - Restless legs syndrome - Restless legs syndrome - Pneumonia, unspecified organism - Pneumonia due to Streptococcus pneumoniae - Chronic obstructive pulmonary disease with acute lower respir [email or web address]
[2020-03-05] MEDS ORDERED: ELIQUIS5 MG PO (16:42)
[2020-03-05] MEDS ORDERED: ROPINIROLE HCL4 MG PO (16:42)
--- NOTE | 2020-03-05 23:10 | EKG ---
[facility] [address] [facility] [address] [place], [place] [address] Signed Normal sinus rhythm Cannot rule out Inferior infarct , age undetermined Abnormal ECG When compared with ECG of 10-OCT-2019 18:49, No significant change was found Confirmed by REJI GONSALEZ MD ([id number]) on 03/05/2020 11:10:35 PM Electronically Signed By: REJI GONSALEZ MD 03/05/20 2310 PATIENT NAME: RONALD FLORIAN Electrocardiogram DATE OF : 49 PHYSICIAN: REJI GONSALEZ MD REPORT #: [id number] REPORT IS CONFIDENTIAL AND NOT TO BE RELEASED WITHOUT AUTHORIZATION
== END 2020-03-05 20:48 | disposition home or self-care (01) ==
LOC: ED 16:32
DX: R55 Syncope and collapse (principal); E11.9 Type 2 diabetes mellitus without complications; J44.9 Chronic obstructive pulmonary disease, unspecified; F32.9 Major depressive disorder, single episode, unspecified; Z88.8 Allergy status to other drugs, medicaments and biological substances; Z79.899 Other long term (current) 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; Z79.01 Long term (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 of 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; Z79.51 Long term (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 of inhaled steroids
CPT/HCPCS: 80053; 84484; 85025; 93005; 93010; 96361; 96374; 99284-25; J2550; J7040

== ENCOUNTER 2020-05-30 16:14 | Emergency (ER) | payer MEDICARE, OTHER ==
[~2020-05-30] VITALS: Ht 154.9 cm; Wt 51.3 kg
--- OUTSIDE RECORDS SUMMARY | ~2020-05-30 | XMS | Encounter Summary ---
Demographics + + + | Address | [address] | | | [place] [address] | + + + | Home Phone | | + + + | Preferred Language | Unknown | + + + | Marital Status | | + + + | Roman Catholic Affiliation | 1013 | + + + | Race | Unknown | + + + | Ethnic Group | Unknown | + + + Author + + + | Author | [facility] | | | and [place] | + + + | Organization | [facility] | | | and [place] | + + + | Address | Unknown | + + + | Phone | Unavailable | + + + Support + + +---------+ + | Name | Relationship | Address | Phone | + + +---------+ + | Giusepperichie Menchaca | ECON | Unknown | | + + +---------+ + | Nathalia Weinstein | ECON | Unknown | | + + +---------+ + Care Team Providers + +------+ + | Care Epic Analyst Name | Role | Phone | + +------+ + | Concepción Gallardo NP | PCP | | + +------+ + Encounter Details +--------+ + + + + | Date | Type | Department | Care Team | Description | +--------+ + + + + | 11/26/ | Hospital | [facility] | Conversion | Peripheral vertigo, | | 2016 | Encounter | [facility] MRI [address] | Transaction, | unspecified | | | | [address] | Provider Unknown | laterality; | | | | [place] | [phone] | Post-concussion | | | | [phone] | (Fax) | vertigo | | | | [phone] | | | +--------+ + + + [...] on file | | + + + documented as of this encounter Last Filed Vital Signs + + + + + | Vital Sign | Reading | Time Taken | Comments | + + + + + | Blood Pressure | - | - | | + + + + + | Pulse | - | - | | + [...] + + + + | Weight | 59 kg (130 lb) | 11/26/2015 11:31 AM | | | | | PST | | + + + + + | Height | - | - | | + + + + + | Body Mass Index | 23.78 | 11/20/2015 1:02 PM | | | | | PST | | + + + + + documented in this encounter Medications at Time of Discharge + + + +---------+ + + | Medication | Sig | Dispensed | Refills | Start | End Date | | | | | | Date | | + + + +---------+ + + | Loratadine 10 MG | Take 10 mg by mouth | | 0 | | | | CAPS | Daily as needed. | | | | | + + + +---------+ + + | albuterol 5 mg/mL | Take 2.5 mg by | | 0 | | | | nebulizer solution | nebulization every 6 | | | | 8 | | | hours as needed. | | | | | + + + +---------+ + + | Albuterol Sulfate | Inhale into the | | 0 | | | | (PROAIR HFA IN) | lungs. | | | | 6 | + + + +---------+ + + | clonazepam | Take 1 mg by mouth | | 0 | | | | (KLONOPIN) 2 MG | Twice daily as | | | | 8 | | tablet | needed. | | | | | + + + +---------+ + + | CYCLOBENZAPRINE | Take by mouth as | | 0 | | | | HCL PO | needed. | | | | 6 | + + + +---------+ + + | ergocalciferol | Take 50,000 Units by | | 0 | | | | (VITAMIN D-2) 50,000 | mouth Once a week. | | | | 6 | | units capsule | | | | | | + + + +---------+ + + | | Inhale into the | | 0 | | | | Fluticasone-Salmeter | lungs. | | | | 6 | | ol (ADVAIR HFA IN) | | | | | | + + + +---------+ + + | | Take 1 tablet by | | 0 | | | | HYDROcodone-acetamin | mouth every 6 hours | | | | 7 | | ophen (NORCO) 10-325 | as needed. | | | | | | mg per tablet | | | | | | + + + +---------+ + + | ibuprofen | Take 600 mg by mouth | | 0 | | | | (ADVIL,MOTRIN) 600 | every 6 hours as | | | | 6 | | MG tablet | needed. | | | | | + + + +---------+ + + | ipratropium | Take 0.5 mg by | | 0 | | | | (ATROVENT) 500 | nebulization 4 times | | | | 8 | | mcg/2.5 mL nebulizer | daily. | | | | | | solution | | | | | | + + + +---------+ + + | levothyroxine | Take 0.88 mcg by | | 0 | | | | (SYNTHROID, | mouth every morning | | | | 8 | | LEVOTHROID) 112 mcg | (before breakfast). | | | | | | tablet | | | | | | + + + +---------+ + + | methocarbamol | Take 500 mg by mouth | | 0 | | | | (ROBAXIN) 500 mg | 4 times daily. | | | | 6 | | tablet | | | | | | + + + +---------+ + + | mirtazapine | Take 15 mg by mouth | | 0 | | | | (REMERON SOLTAB) 15 | nightly. | | | | 6 | | mg disintegrating | | | | | | | tablet | | | | | | + + + +---------+ + + | ondansetron | Take 4 mg by mouth | | 0 | | | | (ZOFRAN ODT) 4 mg | Twice daily as | | | | 6 | | disintegrating | needed. | | | | | | tablet | | | | | | + + + +---------+ + + | oxyCODONE | Take 5 mg by mouth | | 0 | | | | (ROXICODONE) 5 mg | every 4 hours as | | | | 6 | | tablet | needed. | | | | | + + + +---------+ + + | ranitidine | Take 150 mg by mouth | | 0 | | | | (ZANTAC) 150 MG | as needed. | | | | 8 | | capsule | | | | | | + + + +---------+ + + | Ropinirole HCl | Take 4 mg by mouth 4 | | 0 | 08/31/20 | | | (REQUIP XL) 6 MG | times daily. | | | 11 | 8 | | TB24 | | | | | | + + + +---------+ + + | tizanidine | Take 2 mg by mouth | | 0 | | | | (ZANAFLEX) 2 MG | as needed. In severe | | | | 7 | | tablet | moments | | | | | + + + +---------+ + + documented as of this encounter Progress Notes Conversion Transaction, Provider Unknown - 11/26/2015 11:55 AM PSTFormatting of this note m ight be different from the original. 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 ( seated on stretcher due to back pain when laying down).( Pt weak, unsteady and for getful after seizure). No food after 9 am , which was a banana and chocolate chips. Pt has had similar symptoms in past . Confirmed by her friend.reports being diabetic with unstable periods, may go months without problems. Pt given 40z grape juice, then c/o nausea. Was able to take the juice and part of a charbel cracker. V 150/74 99 o2 sat 95-100 123/77 80 o2 100 Blood sugar 85 after juice.( has reportedly been as low as 35 per pt). Pt eval by radiology staff ( rads) and recommended to be evaluated further at the er befor e returning home to [place]. Pt reluctant but willing to go to er. Pt transported to er via ambulance, not amb at this t charleen. pts friend in attendance. Er notified of pts arrival. docume nted in this encounter Plan of Treatment +--------+---------+ + + + | Date | Type | Specialty | Care Team | Description | +--------+---------+ + + + | 06/18/ | Office | Pain Medicine | Denys Sibley, | | | 2019 | Visit | | DO [address] | | | | | | [place] | | | | | | [address] | | | | | | | | +--------+---------+ + + + | 06/26/ | Office | Cardiology | Monserrat Weems | | | 2019 | Visit | | GLYNN [address]iz [address] | | | | | | [address] | | | | | | [place] [address] | | | | | | [phone] | | | | | | | | +--------+---------+ + + + documented as of this encounter Procedures + +--------+ + + + | Procedure Name | Priori | Date/Time | Associated Diagnosis | Comments | | | ty | | | | + +--------+ + + + | MRI BRAIN W WO | Routin | 11/26/2015 | | Results for this | | CONTRAST | e | 12:10 PM | | procedure are in the | | | | PST | | results section. | + +--------+ + + + | POC GLUCOSE | Routin | 11/26/2015 | | Results for this | | | e | 11:56 AM | | procedure are in the | | | | PST | | results section. | + +--------+ + + + documented in this encounter Results MRI Brain w wo Contrast (11/26/2015 12:10 PM PST) + + | Specimen | + + | | + + + + + | Impressions | Performed At | + + + | 1. No acute intracranial abnormality. 2. 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 3. Mild supratentorial white matter | | | disease, probably related to white matter ischemic gliosis. 4. | | | No internal auditory canal mass. 5. Mild somewhat diffuse | | | probable age-related volume loss. | | + + + + + + | Narrative | Performed At | + + + | [facility] 11/26/2015 10:44 AM HISTORY: Peripheral | | | vertigo, unspecified laterality. Postconcussion vertigo. Possible | | | seizure disorder. TECHNIQUE: Using a 1.5 Aretha MRI unit, standard | | | multiplanar pre-and post intravenous contrast sequences through the | | | brain were obtained.11 milliliters of MultiHance were utilized. | | | COMPARISON: Head CT dated November 14, 2013. FINDINGS: No acute | | | intracranial infarct is noted. No intracranial hemorrhage, mass, or | | | hydrocephalus is found. Mild somewhat diffuse volume loss is again | | | seen, likely age-related. A cystic focus with peripheral gliosis in | | | the right lentiform nucleus is unchanged measuring 11 mm likely an | | | old lacunar infarct. Mild nonenhancing supratentorial white matter | | | disease is noted, as evidenced by scattered juxtacortical and | | | periventricular white matter foci, the largest in the left | | | periventricular parietal white matter measuring 11 mm, probably due to | | | mild white matter ischemic gliosis. The corpus callosum, midbrain, | | | raman, medulla, and cerebellum appear normal. No orbital abnormalities | | | are found. Trace right mastoid fluid is noted. Dedicated imaging | | | through the internal auditory canals demonstrates normal 7th and 8th | | | cranial nerve complexes. No internal artery canal mass is observed. | | | The visualized intracranial vessels appear normal. | | + + + + + | Procedure Note | + + | Junior, Rad Conversion - 06/14/2019 7:15 PM [facility]11/26/2015 10:44 | | AM HISTORY:Peripheral vertigo, unspecified laterality. Postconcussion vertigo. Possible | | seizure disorder. TECHNIQUE:Using a 1.5 Aretha MRI unit, standard multiplanar pre-and | | post intravenous contrast sequences through the brain were obtained.11 milliliters of | | MultiHance were utilized. COMPARISON:Head CT dated November 14, 2013. FINDINGS:No acute | | intracranial infarct is noted. No intracranial hemorrhage, mass, or hydrocephalus is | | found. Mild somewhat diffuse volume loss is again seen, likely age-related. A cystic | | focus with peripheral gliosis in the right lentiform nucleus is unchanged measuring 11 | | mm likely an old lacunar infarct. Mild nonenhancing supratentorial white matter disease | | is noted, as evidenced by scattered juxtacortical and periventricular white matter foci, | | the largest in the left periventricular parietal white matter measuring 11 mm, probably | | due to mild white matter ischemic gliosis. The corpus callosum, midbrain, raman, | | medulla, and cerebellum appear normal. No orbital abnormalities are found. Trace right | | mastoid fluid is noted. Dedicated imaging through the internal auditory canals | | demonstrates normal 7th and 8th cranial nerve complexes. No internal artery canal mass | | is observed. The visualized intracranial vessels appear normal. IMPRESSION: 1. No acute | | intracranial abnormality. 2. 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 3. Mild | | supratentorial white matter disease, probably related to white matter ischemic gliosis. | | 4. No internal auditory canal mass. 5. Mild somewhat diffuse probable age-related | | volume loss. | |Dedicated imaging through the internal auditory canals demonstrates normal 7th and 8th cran ial nerve complexes. No internal artery canal mass is observed. | | | |The visualized intracranial vessels appear normal. | | | |IMPRESSION: | |1. No acute intracranial abnormality. | | | |2. 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 | | | |3. Mild supratentorial white matter disease, probably related to white matter ischemic gli osis. | | | |4. No internal auditory canal mass. | | | |5. Mild somewhat diffuse probable age-related volume loss. | | | | | + + POC Glucose (11/26/2015 11:56 AM PST) + + + + + + | Component | Value | Ref Range | Performed | Pathologist | | | | | At | Signature | + + + + + + | Glucose, | 85Comment: Testing | 65 - 99 mg/dL | EXTERNAL | | | Fingerstick | performed at [facility];[address] | | LAB | | | | [address];[place] | | | | | | [id number] | | | | + + + + + + + + | Specimen | + + | | + + + +---------+ + + | Performing | Address | City/State/Zipcode | Phone Number | | Organization | | | | + +---------+ + + | EXTERNAL LAB | | | | + +---------+ + + documented in this encounter Visit Diagnoses + + | Diagnosis | + + | Peripheral vertigo, unspecified laterality | + + | Post-concussion vertigo Postconcussion syndrome | + + documented in this encounter"
--- OUTSIDE RECORDS SUMMARY | ~2020-05-30 | XMS | Encounter Summary ---
Demographics + + + | Address | [address] | | | [place] [address] | + + + | Home Phone | | + + + | Preferred Language | Unknown | + + + | Marital Status | | + + + | Church Affiliation | 1013 | + + + | Race | Unknown | + + + | Ethnic Group | Unknown | + + + Author + + + | Author | [facility] | | | and [place] | + + + | Organization | [facility] | | | [...] Team Providers + +------+ + | Care Campaign Management Specialist Name | Role | Phone | + +------+ + | Concepción Gallardo NP | PCP | | + +------+ + Reason for Visit + +--------+ + | Reason | Onset | Comments | | | Date | | + +--------+ + | Records Request | 12/18/ | | | | 2014 | | + +--------+ + Encounter Details +--------+ + + + + | Date | Type | Department | Care Team | Description | +--------+ + + + + | 12/18/ | Telephone | [facility] | Sj Valdes MD | Records Request | | 2014 | | NEUROSURGERY [address] | [address] | | | | | [facility] [place] [address] | [place] [address] | | | | | Beena Hargrove [place] | [phone] | | | | | [address] | | | | | | [phone] | | | +--------+ + + + [...] this encounter Miscellaneous Notes Telephone Encounter - Cindy Shaikh - 12/18/2014 3:03 PM PSTContacted [facility] Patient was seen on 12/13/14. Next visit scheduled 12/26/14. Chart notes requested at this time. Please forward to Dr. Valdes once received. documented in this encounter Plan of Treatment +--------+---------+ + + + | Date | Type | Specialty | Care Team | Description | +--------+---------+ + + + | 06/18/ | Office | Pain Medicine | Denys Sibley, | | | 2019 | Visit | | [address] | | | | | | [place] | | | | | | [phone] | | | | | | | | +--------+---------+ + + + | 06/26/ | Office | Cardiology | Monserrat Weems | | | 2019 | Visit | | GLYNN [address]iz [address] | | | | | | [address] | | | | | | [place] [address] | | | | | | [phone] | | | | | | | | +--------+---------+ + + + documented as of this encounter Visit Diagnoses Not on filedocumented in this encounter"
--- OUTSIDE RECORDS SUMMARY | ~2020-05-30 | XMS | Encounter Summary ---
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 myelopathy or radiculopathy, lumbosacral region | + + | Chronic bilateral low back pain without sciatica | + + | Low back pain without sciatica, unspecified back pain laterality, unspecified | | chronicity | + + | Intervertebral disc disorders with radiculopathy, lumbosacral region | + + | Cervical radiculopathy Brachial neuritis or radiculitis nos | + + | Closed compression fracture of fifth lumbar vertebra, sequela | + + documented in this encounter
--- OUTSIDE RECORDS SUMMARY | ~2020-05-30 | XMS | Encounter Summary ---
Demographics + + + | Address | [address] | | | [place] [address] | + + + | Home Phone | | + + + | Preferred Language | Unknown | + + + | Marital Status | | + + + | Confucianist Affiliation | [id number] | + + + [...] Team Providers + +------+ + | Care Framing And Hanging Name | Role | Phone | + +------+ + | Romy De La Paz MD | PCP | | + +------+ + Reason for Referral Diagnostic/Screening (Routine) + +--------+ + + + + | Status | Reason | Specialty | Diagnoses / | Referred By | Referred To | | | | | Procedures | Contact | Contact | + +--------+ + + + + | Authorizatio | | Radiology | Diagnoses | Castillo, | [facility] | | n not | | | Paroxysmal | DO Zuleyka | Medicine | | Required | | | atrial | [address] | | | | | fibrillation | [address] | [address] | | | | | (HCC) | [address] | [place], [place] | | | | | Procedures | [place], [place] | [address] | | | | | [place] Nuclear | [address] | Phone: | | | | | Stress Test | Phone: | [phone] | | | | | (Exercise) | [phone] | Fax: | | | | | | Fax: | [phone] | | | | | | [phone] | | + +--------+ + + + + Reason for Visit + + + | Reason | Comments | + + + | New Patient | new patient | + + + Evaluate & Treat (Routine) + +--------+ + + + + | Status | Reason | Specialty | Diagnoses / | Referred By | Referred To | | | | | Procedures | Contact | Contact | + +--------+ + + + + | Authorized | | Cardiology | Diagnoses | Ana Cristina, | Castillo, | | | | | Paroxysmal | Romy Senia, | DO Zuleyka | | | | | atrial | MD [address] | [address] | | | | | fibrillation | [address] | [address] | | | | | ([facility]) | [place], | [place], [place] | | | | | Procedures | [place] | [address] Phone: | | | | | consult | [address] | [phone] | | | | | | Phone: | Fax: | | | | | | [phone] | [phone] | | | | | | Fax: | | | | | | | [phone] | | + +--------+ + + + + Encounter Details +--------+---------+ + + + | Date | Type | Department | Care Team | Description | +--------+---------+ + + + | 02/27/ | Office | [facility] | Jonathan ZuleykaDO | Palpitations | | 2020 | Visit | CARDIOLOGY [place] | [address] | (Primary Dx); | | | | [address] | [place], [place] | Paroxysmal atrial | | | | [address] | [address] | fibrillation (HCC) | | | | [place] | | | | | | [address] | | | | | | [phone] | | | +--------+---------+ + + + [...] + + + | Blood Pressure | 118/70 | 02/28/2020 1:08 PM | | | | | PDT | | + + + + + | Pulse | 76 | 02/28/2020 1:08 PM | | | | | PDT | | + + + + + | Temperature | - | - | | + + + + + | Respiratory Rate | - | - | | + + + + + | Oxygen Saturation | 99% | 02/28/2020 1:08 PM | | | | | PDT | | + + + + + | Inhaled Oxygen | - | - | | | Concentration | | | | + + + + + | Weight | 51.3 kg (113 lb 3.2 | 02/28/2020 1:08 PM | | | | oz) | PDT | | + + + + + | Height | 154.9 cm (5' 1") | 02/28/2020 1:08 PM | | | | | PDT | | + + + + + | Body Mass Index | 21.39 | 02/28/2020 1:08 PM | | | | | PDT | | + + + + + documented in this encounter Progress Notes Zuleyka Castillo DO - 02/28/2020 1:00 PM PDT [facility] Cardiology Cardiology Consult Note Reason for Consultation: afib Requesting Physician: Romy De La Paz History Obtained From: patient HISTORY OF PRESENT ILLNESS: Cardiac Problem List Paroxysmal atrial fibrillation Non Cardiac Problem List Hypothyroidism Chronic Back Pain The patient is a 74-year-old female, who presents to the Cardiology office for initial cons ultation regarding atrial fibrillation. The patient had a recent hospitalization for a pneu monia during which she was also diagnosed with paroxysmal atrial fibrillation with RVR. She spontaneously converted back to normal sinus rhythm. She was started on Eliquis 5 mg by [facility] twice daily as well as metoprolol tartrate 25 mg by mouth twice daily. She has had luis fernando e issues with low blood pressure after being on the metoprolol tartrate. She denies any epi sodes of lightheadedness, syncope, presyncope. After her hospitalization, she had one other episode of atrial fibrillation that she could feel, which lasted approximately 15 minutes. She has had a couple of other much shorter episodes of palpitations, but she is not sure it is related to atrial fibrillation. These occur whenever her back pain is uncontrolled. S he tries to walk daily anywhere from 5 to 8 months. She is able to do this walking without any shortness of breath or chest pain. She occasionally has some mild chest discomfort at r est, but none associated with exertion. She has been tolerating anticoagulation well withou t any bleeding problems. Review of Systems Constitutional: Negative for fatigue. HENT: Negative for nosebleeds. Eyes: Negative for visual disturbance. Respiratory: Negative for cough and shortness of breath. Cardiovascular: see HPI Gastrointestinal: Negative for nausea, vomiting, abdominal pain and blood in stool. Genitourinary: Negative for hematuria or dysuria. Musculoskeletal: Negative for myalgias, positive for back pain and arthralgias. Skin: Negative for color change. Neurological: Negative for dizziness, syncope and numbness. Hematological: Does not bruise/bleed easily. Psychiatric/Behavioral: The patient is not nervous/anxious. PAST MEDICAL & SURGICAL HISTORY Past Medical History: Diagnosis Date Acid reflux disease Acute renal failure (HCC) April 2013 Adverse effect of anesthesia hx hallucinations after anesthesia x 3 yrs ago. Anesthesia hallucinated after bladder repair Arthralgia Arthritis Asthma Asthma Back pain Cancer (HCC) 2005 breast Cataract Cerebrovascular accident (CVA) ([facility]) no per pt Chronic back pain Chronic back pain Chronic constipation Concussion 07/2015 Preceeded by seizure Constipation COPD (chronic obstructive pulmonary disease) ([facility]) Degenerative disc disease Depression Depression Diabetes [...] Scoliosis Scoliosis of lumbar spine 04/17/2014 Seizure ([facility]) one due to meds, two due to dehydration at least couple years ago Strain of lumbar region 02/25/2019 Syncope and collapse Tardive dyskinesia Use of cane as ambulatory aid Past Surgical History: Procedure Laterality Date ANKLE FRACTURE SURGERY Left 2011 BLADDER SUSPENSION BREAST SURGERY LUMPECTOMY BREAST SURGERY Left 1996 CARDIAC CATHERIZATION 2016 no stents SECTION 1974 SECTION CHOLECYSTECTOMY 1998 [facility]H CHOLECYSTECTOMY COLONOSCOPY 2009 COLONOSCOPY CYSTOCELE REPAIR FIXATION KYPHOPLASTY 06/13/2018 Procedure: KYPHOPLASTY; Surgeon: Alfredo Casillas DO; Location: [facility] MAIN OR; Service: Pa in Management; Laterality: N/A; L5 FRACTURE SURGERY ANKLE HERNIA REPAIR HYSTERECTOMY HYSTERECTOMY LAMINECTOMY N/A 08/03/2019 Procedure: LAMINOTOMY THORACIC / LUMBAR W/ PLACEMENT SPINAL CORD STIMULATOR; Surgeon: Suly Hutchins MD; Location: [facility] MAIN OR OTHER SURGICAL HISTORY EPIDURAL STEROID INJECTION OTHER SURGICAL HISTORY 08/28/2018 EPIDURAL STEROID INJECTION - LESI L4-L5 OTHER SURGICAL HISTORY 09/11/2018 EPIDURAL STEROID INJECTION - LESI L5-S1 OTHER SURGICAL HISTORY UNLISTED PROCEDURE ARTHROSCOPY SLING REMOVAL , BLADDER 2006 TUBAL LIGATION UPPER GASTROINTESTINAL ENDOSCOPY MEDICATIONS Home Medications Outpatient Encounter Medications as of 02/28/2020 Medication Sig Dispense Refill ALBUTEROL IN Inhale into the lungs. apixaban (ELIQUIS) 5 mg tablet Take 1 tablet by mouth 2 times daily. 180 tablet 3 [DISCONTINUED] Ascorbic Acid (VITAMIN C) 1000 MG tablet Take 1,000 mg by mouth Daily. [DISCONTINUED] benzonatate (TESSALON) 100 mg capsule TAKE 1 CAPSULE BY MOUTH THREE TIME S DAILY NEEDED FOR COUGH 0 [DISCONTINUED] Calcium Carb-Cholecalciferol (CALCIUM 1000 + D PO) Take by mouth. [DISCONTINUED] chlorhexidine (HIBICLENS) 4 % external liquid Apply to affected area the night before and the morning of surgery. (Patient not taking: Reported on 02/28/2020) 118 mL 0 clonazePAM (KLONOPIN) 1 mg tablet Take 1-2 mg by mouth nightly as needed for Anxiety. [DISCONTINUED] digoxin (LANOXIN) 125 mcg tablet TAKE 1 TABLET BY MOUTH 5 TIMES A WEEK ( TUESDAY THRU TUESDAY) 0 HYDROcodone-acetaminophen (NORCO) 10-325 mg per tablet Take 1 tablet by mouth every 4 h ours as needed for Pain for up to 30 days. 180 tablet 0 levothyroxine (SYNTHROID) 100 mcg tablet Take 100 mcg by mouth every morning (before br eakfast). lidocaine-prilocaine (EMLA) cream Apply to affected area 2 or 3 times a day 5800 g 3 Loratadine 10 MG CAPS Take 10 mg by mouth Daily as needed. methocarbamol (ROBAXIN) 500 mg tablet Take 500 mg by mouth 4 (four) times daily. 120 ta blet 3 metoprolol succinate (TOPROL-XL) 25 mg 24 hr tablet Take 1 tablet by mouth Daily. 30 ta blet 11 [DISCONTINUED] metoprolol tartrate (LOPRESSOR) 25 mg tablet TAKE 1 2 (ONE HALF) TABLET BY MOUTH TWICE DAILY FOR 30 DAYS [DISCONTINUED] Multiple Vitamins-Minerals (MULTIVITAMIN WITH MINERALS) tablet Take 1 ta blet by mouth daily. naloxone (NARCAN) 4 mg/nasal spray 1 spray by Nasal route as needed for Decreased Respo nsiveness (May repeat with second device into other nostril after 2 minutes). 2 each 1 [DISCONTINUED] nitrofurantoin (MACROBID) 100 mg capsule TAKE 1 CAPSULE BY MOUTH TWICE D AILY 0 [DISCONTINUED] nitroglycerin (NITROSTAT) 0.[address] 0.4 mg under the tongue every 5 minutes as needed for Chest pain. [DISCONTINUED] ofloxacin (OCUFLOX) 0.3% ophthalmic solution INSTILL 10 DROPS INTO AFFEC JANELLE EAR EVERY 12 HOURS FOR 7 DAYS 0 [DISCONTINUED] ondansetron (ZOFRAN) 24 MG tablet Take 24 mg by mouth once. [DISCONTINUED] promethazine (PHENERGAN) 25 mg tablet TAKE 1 TABLET BY MOUTH EVERY 6 SUSAN RS NEEDED FOR NAUSEA 0 [DISCONTINUED] raNITIdine (ZANTAC) 150 mg tablet Take 150 mg by mouth 2 (two) times liam ly. rOPINIRole (REQUIP) 2 MG tablet Take 2 mg by mouth 4 times daily. 3 [DISCONTINUED] rOPINIRole (REQUIP) 4 mg tablet Take 4 mg by mouth 4 times daily. [DISCONTINUED] XARELTO 20 MG tablet TAKE 1 TABLET BY MOUTH ONCE DAILY 0 No facility-administered encounter medications on file as of 02/28/2020. Allergies Allergies Allergen Reactions Prednisolone Other (See Comments) Depression/suicidal Ambien [Zolpidem] Hallucination Ativan [Lorazepam] Hallucination FAMILY HISTORY Family History Problem Relation Age of Onset [...] cancer Paternal Uncle Heart failure Paternal Aunt Malig hypertherm Neg Hx SOCIAL HISTORY Social History Socioeconomic History Marital status: Spouse name: Not on file Number of children: 3 Years of education: 14 Highest education level: Not on file Occupational History Occupation: [employer] Social Needs Financial resource strain: Not on file Food insecurity: Worry: Not on file Inability: Not on file Transportation needs: Medical: Not on file Non-medical: Not on file Tobacco Use Smoking status: Never Smoker Smokeless tobacco: Never Used Substance and Sexual Activity Alcohol use: Yes Comment: Alcoholic Drinks/day: not often..twice per year Drug use: No Comment: Drug use: No Sexual activity: Never Lifestyle Physical activity: Days per week: Not on file Minutes per session: Not on file Stress: Not on file Relationships Social connections: Talks on phone: Not on file Gets together: Not on file Attends jewish service: Not on file Active member of club or organization: Not on file Attends meetings of clubs or organizations: Not on file Relationship status: Not on file Intimate partner violence: Fear of current or ex partner: Not on file Emotionally abused: Not on file Physically abused: Not on file Forced sexual activity: Not on file Other Topics Concern Not on file Social History Narrative Not on file PHYSICAL EXAM Vital Signs: BP 118/70 | Pulse 76 | Ht 1.549 m (5' 1") | Wt 51.3 kg (113 lb 3.2 oz) | L MP (LMP Unknown) | SpO2 99% | BMI 21.39 kg/m Physical Exam GENERAL: Thin female, in no distress. Appears approximately stated age. HEENT: Normocephalic, atraumatic. EYES: PERRL, sclerae anicteric, no xanthelsasmas NECK: No JVD, lymphadenopathy, thyromegaly, bruits. Carotid pulses are 2+ bilaterally LUNGS: Clear bilaterally, with no rales, rhonchi or wheezing noted, respirations unlabored HEART: Nondisplaced PMI, regular rate and rhythm, S1, S2 normal. No murmurs, rubs or gall ops noted. ABDOMEN: Soft, nontender, no organomegaly, masses or bruits. Bowel sounds are normal in a ll 4 quadrants. EXTREMITIES: No edema. Radial pulses 2+ bilaterally. DP and PT pulses are 2+ bilaterally. SKIN: Warm and dry, capillary refill is normal, no lesions. NEUROLOGIC: Awake, alert and oriented x 3. No focal motor deficits. PSYCHIATRIC: Appropriate, affect appears normal DATA Lab Results Component Value Date WBC 5.40 07/18/2019 HGB 12.6 07/18/2019 HCT 37.4 07/18/2019 PLT 295 07/18/2019 Lab Results Component Value Date INR 1.0 07/18/2019 PTT 29 07/18/2019 Lab Results Component Value Date NA 138 07/18/2019 K 3.8 07/18/2019 CL 103 07/18/2019 CO2 31 07/18/2019 BUN 18 07/18/2019 CREA 0.8 07/18/2019 MG 2.1 07/18/2014 AST 17 07/18/2019 ALT 20 07/18/2019 TSH 1.92 06/23/2018 Lab Results Component Value Date TSH 1.92 06/23/2018 Most recent blood work from 10/19/2019 reviewed including total cholesterol 221, triglyceri nacho 116, HDL 87, LDL 111, 34, potassium 4.2, glucose 89, BUN 20, 0.72, GFR 80, calcium 9.2, AST, ALT 14, alkaline phosphatase 55, total bilirubin 0.4, total protein 6.6, hemoglobin A1c 5.6, white blood cell count 8.1, hemoglobin 11.7, hematocrit 36.8, platelet count 339 EKG: Last Echo: 10/01/2019 normal left ventricular function, ejection fraction 60 to 65%, no hemodynamically significant valve abnormalities, left and right atria were normal in size. Last stress test: Last cath: Carotid US: AAA screening: Lower extremity US: OTHERS: ASSESSMENT & PLAN 1. Paroxysmal atrial fibrillation 2. Hypothyroidism 3. Chronic pain -The patient is a 74-year-old female who presents to the cardiology office for initial cons ultation regarding an episode of paroxysmal atrial fibrillation while she was in the [place] [facility] with pneumonia. She has had a few brief episodes since that hospitalization. She has bee n started on anticoagulation with Xarelto for a [id number] score of 2. She reports that this medication was too expensive for her. We have her Rx savings info for Eliquis 5m po bid. Chadd quiroz has had some issues with low blood pressure on metoprolol tartrate. We will switch over t o metoprolol succinate at a lower dose. If blood pressure continues to be an issue, may con medical record technician switching over to digoxin. She had a recent echocardiogram which demonstrated normal left ventricular function, no valvular abnormalities, and normal atrial size. - Obtain an exercise nuclear stress test - Start Eliquis 5mg po bid - DC metoprolol tartrate - Start metoprolol succinate 25mg po daily - Follow up in 4 weeks Thank you for allowing me to participate in the care of this patient. Primary Care Physician: MD Zuleyka Lopez DO 03/02/2020 documented in this enco unter Plan of [...] [place] | | | | | | [address] | | | | | | | | +--------+---------+ + + + | 06/26/ | Office | Cardiology | [facility] | | | 2019 | Visit | | [address] | | | | | | [address] | | | | | | [place] [address] | | | | | | [phone] | | | | | | | | +--------+---------+ + + + + + +--------+ + + | Name | Type | Priori | Associated Diagnoses | Order Schedule | | | | ty | | | + + +--------+ + + | NM Nuclear Stress | Cardiac | Routin | Paroxysmal atrial | Expected: | | Test (Exercise) | Nuclear | e | fibrillation (HCC) | 03/06/2020, Expires: | | | Medicine | | | 02/27/2021 | + + +--------+ + + documented as of this encounter Procedures + +--------+ + + + | Procedure Name | Priori | Date/Time | Associated Diagnosis | Comments | | | ty | | | | + +--------+ + + + | ECG 12 LEAD | Routin | 02/28/2020 | Palpitations | Results for this | | | e | 1:16 PM | Paroxysmal atrial | procedure are in the | | | | PDT | fibrillation (HCC) | results section. | + +--------+ + + + documented in this encounter Results ECG 12 lead (02/28/2020 1:16 PM PDT) + + + + + + | Component | Value | Ref Range | Performed | Pathologist | | | | | At | Signature | + + + + + + | VENTRICULAR | 67 | BPM | [facility] | | | RATE EKG | | | | | + + + + + + | ATRIAL RATE | 67 | BPM | [facility] | | + + + + + + | P-R | 174 | ms | [facility] | | | INTERVAL | | | | | + + + + + + | QRS | 80 | ms | [facility] | | | DURATION | | | | | + + + + + + | Q-T | 424 | ms | [facility] | | | INTERVAL | | | | | + + + + + + | Q-T | 448 | ms | [facility] | | | INTERVAL | | | | | | (CORRECTED) | | | | | + + + + + + | P WAVE AXIS | 74 | degrees | [facility] | | + + + + + + | QRS AXIS | 14 | degrees | [facility] | | + + + + + + | T AXIS | 71 | degrees | [facility] | | + + + + + + | INTERPRETAT | Sinus rhythm with | | [facility] | | | ION TEXT | occasional Premature | | | | | | ventricular | | | | | | complexesOtherwise | | | | | | normal ECGWhen compared | | | | | | with ECG of 18-JUL-2019 | | | | | | 14:24,Premature | | | | | | ventricular complexes | | | | | | are now PresentConfirmed | | | | | | by ZULEYKA CASTILLO MD | | | | | | ([id number]) on 03/04/2020 | | | | | | 7:53:39 AM | | | | + + + [...] + | Diagnosis | + + | Palpitations - Primary | + + | Paroxysmal atrial fibrillation (HCC) Atrial fibrillation | + + documented in this encounter
--- OUTSIDE RECORDS SUMMARY | ~2020-05-30 | XMS | Encounter Summary ---
Demographics + + + | Address | [address] | | | [place] [address] | + + + | Home Phone | | + + + | Preferred Language | Unknown | + + + | Marital Status | | + + + | Druze Affiliation | 1013 | + + + | Race | Unknown | + + + | Ethnic Group | Unknown | + + + Author + + + | Author | [facility] | | | and [place] | + + + | Organization | [facility] | | | [...] Team Providers + +------+ + | Care Record Librarian Name | Role | Phone | + +------+ + PCP | Unavailable | + +------+ + Encounter Details +--------+ + + + + | Date | Type | Department | Care Team | Description | +--------+ + + + + | 11/09/ | Orders Only | [facility] [place] | Shay Dietz | Back pain (Primary | | 2012 | | PHYSIATRY [address] | T, MD [address] | Dx) | | | | [address] | [address] [place], [place] | | | | | [place], [place] | [address] | | | | | [address] | | | | | | [phone] | | | +--------+ + + + [...] | Visit | | [address] | | | | | | [place] | | | | | | [address] | | | | | | | | +--------+---------+ + + + | 06/26/ | Office | Cardiology | [facility] | | | 2019 | Visit | | [address] | | | | | | [address] | | | | | | [place] [address] | | | | | | [phone] | | | | | | | | +--------+---------+ + + + documented as of this encounter Visit Diagnoses + + | Diagnosis | + + | Back pain - Primary Backache, unspecified | + + documented in this encounter"
--- OUTSIDE RECORDS SUMMARY | ~2020-05-30 | XMS | Encounter Summary ---
Demographics + + + | Address | [address] | | | [place] [address] | + + + | Home Phone [...] Team Providers + +------+ + | Care Egg Crater Name | Role | Phone | + [...] Description | +--------+---------+ + + + | 05/19/ | Office | [facility] | Denys Sibley, | S/P insertion of | | 2019 | Visit | [facility] | DO [address] | spinal cord | | | | [address] | stimulator (Primary | | | | [address] | [phone] | Dx); Spinal stenosis | | | | [place], [place] | | of lumbosacral | | | | [address] | | region; Lumbar | | | | [phone] | | region somatic | | | | | | dysfunction; | | | | | | Intractable back | | | | | | pain; Spondylosis | | | | | | without myelopathy | | | | | | or [...] | | | | | | chronicity; Chronic | | | | | | bilateral low back | | | | | | pain with | | | | | [...] | | | | | | lumbar; Closed | | | | | | compression fracture | | | | | | of L5 lumbar | | | | | | vertebra with | | | | | | routine healing, | | | | | | subsequent encounter | +--------+---------+ + + + Social History [...] + + + | Blood Pressure | 107/64 | 05/19/2020 8:36 AM | | | | | PDT | | + + + + + | Pulse | 70 | 05/19/2020 8:36 AM | | | | | PDT | | + + + + + | Temperature | 36.7 C (98 F) | 05/19/2020 8:36 AM | | | | | PDT | | + + + + + | Respiratory Rate | 16 | 05/19/2020 8:36 AM | | | | | PDT | | + + + + + | Oxygen Saturation | 100% | 05/19/2020 8:36 AM | | | | | PDT | | + + + + + | Inhaled Oxygen | - | - | | | Concentration | | | | + + + + + | Weight | - | - | | + + + + + | Height | 154.9 cm (5' 1") | 05/19/2020 8:36 AM | | | | | PDT | | + + + + + | Body Mass Index | - | - | | + + + + + documented in this encounter Progress Denys Posada, DO - 05/19/2020 8:40 AM PDTFormatting of this note might be different fr om the original. CHRONIC PAIN VISIT Patient ID: Kori Rubio is a 74 y.o. female (: 1945). Subjective: Chronic Pain: The primary encounter diagnosis was S/P insertion of spinal cord stimulator. Diagnoses of S jessika stenosis of lumbosacral region, Lumbar region somatic dysfunction, Intractable back pa in, Spondylosis without myelopathy or radiculopathy, cervical region, Spondylosis without my elopathy or radiculopathy, lumbosacral region, Chronic bilateral low back pain without sciat ica, Low back pain without sciatica, unspecified back pain laterality, unspecified chronicit y, Chronic bilateral low back pain with right-sided sciatica, Facet arthritis of lumbar divya on, 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, DDD (degenerative disc disease), lumba r, and Closed compression fracture of L5 lumbar vertebra with routine healing, subsequent en counter were also pertinent to this visit. Kori McintoshErasmo presents for chronic pain evaluation and management. 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 and mental health counselors as deemed necessary Today's Pain Score: 3/10. Patient states that her pain overall is unchanged on her curre nt regimen. The patient reports cold weather and moisture worsens symptoms, and moist heat, pain medication and muscle relaxants relieves symptoms. Additional psycho-social events sin ce last visit include: none. The patient's current personal goal of pain management is: " Pain-free and off of all pain medication". Things she is doing to reach that goal include: Home exercise program and spinal cord stimulator. Progress toward meeting that goal has bee n: fair. Medication FYI Flag Type Author Status Filed Medication Agreement Rupa Nye, Personal Protection Specialist Active 11/14/2019 1:49 PM Pain Contract- Dr. Sibley 11/14/2019 PEG Pain screening tool (Pain, enjoyment, general activity) Total score: (Printable questionnaires in [place]ese ) Interpretation of Total Score: PEG scores are used to track changes over time. It should de crease after therapy has begun. Last 4 PEG Scores: No flowsheet data found. Opioid Risk Tool (ORT): Total Score Temp: 36.7 C (98 F) Temp Source: Oral Pulse: 70 Resp: 16 BP: 107/64 SpO2: 100 % (From Chronic Pain tab; printable questionnaires in [place]ese) Interpretation of Total Score: 0 to 3 = Low risk: 6% chance of developing problematic behav iors, 4 to 7 = Moderate risk: 28% chance of developing problematic behaviors, 8 or more = Hi gh risk: 90% chance of developing problematic behaviors. No flowsheet data found. Outpatient Morphine Equivalent Daily Dose (MEDD) 05/19/20 - 06/18/20 60 mg MEDD Order Name Dose Route [...] factor of 1 = 60 mg MEDD 06/19/20 and after None Current Outpatient Medications: ALBUTEROL IN, Inhale into the lungs., Disp: , Rfl: alendronate (FOSAMAX) 70 mg tablet, TAKE 1 TABLET BY MOUTH ONCE A WEEK, Disp: , Rfl: clonazePAM (KLONOPIN) 1 mg tablet, Take 1-2 mg by mouth nightly as needed for Anxiety. , Disp: , Rfl: fluticasone (FLONASE) 50 mcg/nasal spray, USE 1 SPRAY(S) IN EACH NOSTRIL TWICE DAILY F OR 30 DAYS, Disp: , Rfl: HYDROcodone-acetaminophen (NORCO) 10-325 mg per tablet, Take [...] Dis p: 120 tablet, Rfl: 3 metoprolol succinate (TOPROL-XL) 25 mg 24 hr tablet, Take 1 tablet by mouth Daily., Di sp: 30 tablet, Rfl: 11 naloxone (NARCAN) 4 mg/nasal spray, 1 spray by Nasal route as needed for Decreased Res ponsiveness (May repeat with second device into other nostril after 2 minutes)., Disp: 2 eac h, Rfl: 1 pramipexole (MIRAPEX) 0.5 MG tablet, TAKE 1 TABLET BY MOUTH EVERY DAY AT BEDTIME FOR 3 0 DAYS, Disp: , Rfl: rOPINIRole (REQUIP) 2 MG tablet, Take 2 mg by mouth 4 times daily., Disp: , Rfl: 3 rOPINIRole (REQUIP) 4 mg tablet, TAKE 1 2 TABLET BY MOUTH IN THE MORNING TAKE 1 2 TABL ET BY MOUTH IN THE AFTER NOON AND TAKE 1 TABLET BY MOUTH AT NIGHT, Disp: , Rfl: warfarin (COUMADIN) 5 mg tablet, Take 1 tablet by mouth Daily., Disp: 30 tablet, Rfl: 11 Past Medical History: Diagnosis Date Acid reflux disease Acute renal failure (HCC) April 2013 Adverse effect of anesthesia hx hallucinations after anesthesia x 3 yrs ago. Anesthesia hallucinated after bladder repair Arthralgia Arthritis Asthma Asthma Back pain Cancer ([facility]) 2004 breast Cataract Cerebrovascular accident (CVA) ([facility]) no per pt Chronic back pain Chronic back pain Chronic constipation Concussion 07/2015 Preceeded by seizure Constipation COPD (chronic obstructive pulmonary disease) ([facility]) Degenerative disc disease Depression Depression Diabetes mellitus ([facility]) Diabetes mellitus, type 2 ([facility]) diet controlled Diabetes type 2, controlled ([facility]) diet controlled Diarrhea Disorder of [...] Scoliosis Scoliosis of lumbar spine 04/17/2014 Seizure ([facility]) one due to meds, two [...] Drug use: No Mood Screening: PHQ-9 Depression Scale7 (5-9 = Mild, 10-14 = Moderate, 15-19 = Moderately Severe, 20-27 = Severe) Anxiety Scale 9 (5-9 = Mild, 10-14 = Moderate, 15-21 = Severe Anxiety) Additional Problems: HPI Stenosis lumbar region on the left L5-S1, facet arthritis lumbar region, chronic bilateral low back pain with right-sided sciatica, chronic low back pain, spondylosis without myelopat hy or radiculopathy, intractable low back pain, degenerative disc disease lumbar region, raudel se compression fracture L5 lumbar vertebra with routine healing, insertion of spinal cord st imulator, chronic pain syndrome, long-term current use of opioid analgesics History: Past Medical History: Diagnosis Date Acid reflux disease Acute renal failure ([facility]) April 2013 Adverse effect of anesthesia hx hallucinations after anesthesia x 3 yrs ago. Anesthesia hallucinated after bladder repair Arthralgia Arthritis Asthma Asthma Back pain Cancer ([facility]) 2004 breast Cataract Cerebrovascular accident (CVA) ([facility]) no per pt Chronic back pain Chronic back pain Chronic constipation Concussion 07/2015 Preceeded by seizure Constipation COPD (chronic obstructive pulmonary disease) ([facility]) Degenerative disc disease Depression Depression Diabetes mellitus ([facility]) Diabetes mellitus, type 2 ([facility]) diet controlled Diabetes type 2, controlled ([facility]) diet controlled Diarrhea Disorder of [...] Scoliosis Scoliosis of lumbar spine 04/17/2014 Seizure ([facility]) one due to meds, two [...] SUSPENSION BREAST SURGERY LUMPECTOMY BREAST SURGERY Left 1997 CARDIAC CATHERIZATION 2016 no stents SECTION 1974 SECTION CHOLECYSTECTOMY 1998 SAH CHOLECYSTECTOMY COLONOSCOPY 2009 COLONOSCOPY CYSTOCELE REPAIR FIXATION KYPHOPLASTY 06/13/2018 Procedure: KYPHOPLASTY; Surgeon: Alfredo Casillas DO; Location: [facility]; Service: Pa in Management; Laterality: N/A; L5 FRACTURE SURGERY ANKLE HERNIA REPAIR HYSTERECTOMY HYSTERECTOMY LAMINECTOMY N/A 08/03/2019 Procedure: LAMINOTOMY THORACIC / LUMBAR W/ PLACEMENT SPINAL CORD STIMULATOR; Surgeon: Suly Hutchins MD; [place] [facility] [place]GICAL H[place] EPIDURAL STEROID INJECTION OTHER SURGICAL HISTORY 08/28/2018 EPIDURAL STEROID INJECTION - LESI L4-L5 OTHER SURGICAL HISTORY 09/11/2018 EPIDURAL STEROID INJECTION - LESI L5-S1 OTHER SURGICAL HISTORY UNLISTED PROCEDURE ARTHROSCOPY SLING REMOVAL , BLADDER 2006 TUBAL LIGATION UPPER GASTROINTESTINAL ENDOSCOPY Review of Systems Gastrointestinal: Negative. Genitourinary: Negative. Musculoskeletal: Positive for arthralgias, back pain and gait problem. Neurological: Positive for numbness. Objective: Vital Signs: BP 107/64 | Pulse 70 | Temp 36.7 C (98 F) (Oral) | Resp 16 | Ht 1.549 m (5' 1") | LMP (LMP Unknown) | SpO2 100% | BMI 21.73 kg/m Physical Exam 74-year-old female alert and oriented x4 no acute distress vital signs are st able bowel bladder continent no bowel issues with current medications. Medications that we give include Warriormine 10/325 1 p.o. every 4 hours as needed pain, Robaxin 500 mg every 8 hours. Muscle spasms Active range of motion bilateral upper extremities within functional limit muscle strength is 4/5. Active range of motion bilateral lower extremities within functional limits muscle strength is 4/5. Patient has difficulty rising on heels and toes particularly on the right side. P atient complains about a right-sided numb foot. Primarily on the bottom of her foot. Hal saul has made some adjustments to her spinal cord stimulator which she states is helped her le g discomfort. But she remains with a lack of sensation on the bottom of her right foot. Straight leg test is positive on the right. Seated flexion test is positive. Balance sitt ing is good, standing is good, gait is within functional limits. After lengthy discussion with patient I suggested that she could try readjusting her spinal cord stimulator movement now in a notch for a while and then back up again and see which ga ve her the most relief with less sensory block. Patient understands the above plan is in fu ll agreement and will return to the office in 1 month for reevaluation No results found for this or any previous visit (from the past 672 hour(s)). Patient demonstrates improved functional status on above medication program., Including bu t not limited to activities of daily living, transfers, and mobility. Patient also recogniz es the importance of taking the medications as prescribed. and keeping their follow-up appo intments as scheduled. Assessment and Plan: Chronic pain issues are being controlled by the current treatment regimen. There have not b een concerns or red flags for improper use/abuse of medications since last visit. The ayana ford has been consistently compliant with her pain contract requirements. @ is actively doing t hings other than taking medication to help manage her pain. The Patient's ongoing expectations of chronic pain treatment were reviewed Her ongoing functional goals were reviewed. Medication side effects are tolerable. [place] / [place] PDMP reviewed, listed controlled substances are consistent with [facility] prescriptions and patient reported use. Controlled Medications: no change. Refills given as appropriate for the next 1 months, and she will follow up befo re next refill is due. Recent Review Flowsheet Data There is no flowsheet data to display. Pertinent Pain History: Chronic pain related to items appearing in the above HPI Helpful treatments: Moist heat and pain medication Failed treatments: Ice therapy ORT Score = 3 (0-3 = low risk, 4-7 = mod risk, 8+ = high risk) Daily Opioid Dose = go 10/325 1 p.o. every 4 hours as needed pain Daily Morphine Equivalent Dose (MED) = 60 mg of morphine daily Chronic benzodiazepine use: no Pain Agreement (date): {YES/ Visits every: Monthly Drug Screen every: Twice year Next Refill due: 30 days Follow-up: No follow-ups on file. 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 Appropriate referrals were made at patient [...] and complications with the passage of time. [facility] use is also associated with depressions, and [...] and coordination of care with other health personal care aid and monitoring labs results, other test results and imagin g including [facility] and/or [facility] prescription monitoring systems. This document has been created using [employer] Recognition software and [employer]. The entry has been reviewed for content and accuracy, but there may still exist "sound alike" dye feeder word errors and/or unintended additions and deletions. If there is any question please contact the author of the document: Denys Sibley DOElectronically sig marianne by Denys Sibley DO at 05/19/2020 10:22 AM PDTdocumented in this encounter Plan of Treatment +--------+---------+ + + + | Date | Type | Specialty | Care Team | Description | +--------+---------+ + + + | 06/18/ Office | Pain Medicine | Denys Sibley, | | 2019 | Visit | | DO [address] | | | | | | [place] | | | | | | [id number] | | | | | | | | +--------+---------+ + + + | 06/26/ | Office | Cardiology | Monserrat Weems | | | 2020 | Visit | | [address] | | | | | | [address] | | | | | | [place] [address] | | | | | | [phone] | | | | | | | [...] pain Backache, unspecified | + + | Spondylosis without myelopathy or radiculopathy, cervical region | + + | Spondylosis without myelopathy or radiculopathy, lumbosacral region | + + | Chronic bilateral low back pain without sciatica | + + | Low back pain without sciatica, unspecified back pain laterality, unspecified | | chronicity | + + | Chronic bilateral low [...] | intervertebral disc | + + | Closed compression fracture of L5 lumbar vertebra with routine healing, subsequent | | encounter | + + documented in this encounter
--- OUTSIDE RECORDS SUMMARY | ~2020-05-30 | XMS | Encounter Summary ---
Demographics + + + | Address | [address] | | | [place] [address] | + + + | Home Phone | | + + + | Preferred Language | Unknown | + + + | Marital Status | | + + + | Uatsdin Affiliation | [id number] | + + + | Race | Unknown | + + + | Ethnic Group | Unknown | + + + Author + + + | Author | Located Within [facility] | | | and [place] | + + + | Organization | Located Within [facility] | | [...] Team Providers + +------+ + | Care Employment Office Clerk Name | Role | Phone | + +------+ + PCP | Unavailable | + +------+ + Encounter Details +--------+ + + + + | Date | Type | Department | Care Team | Description | +--------+ + + + + | 12/08/ | [facility] | [facility] | | | | 1994 - | Encounter | MED CTR GENERIC PSY | | | | | | CONV DEPT [address] | | | | 12/18/ | | [place], | | | | 1992 | | [place] [address] | | | | | | [phone] | | | +--------+ + + + [...] [place] | | | | | | [address] | | | | | | | | +--------+---------+ + + + | 06/26/ | Office | Cardiology | Monserrat Weems | | | 2019 | Visit | | [address] | | | | | | [address] | | | | | | [place] [address] | | | | | | [phone] | | | | | | | | +--------+---------+ + + + documented as of this encounter Visit Diagnoses Not on filedocumented in this encounter"
--- OUTSIDE RECORDS SUMMARY | ~2020-05-30 | XMS | Encounter Summary ---
Demographics + + + | Address | [address] | | | [place] [address] | + + + | Home Phone | | + + + | Preferred Language | Unknown | + + + | Marital Status | Single | + + + | Jain Affiliation | NON | + + + | Race | White | + + + | Ethnic Group | Not or | + + + Author + + + | Author | [facility] | + + + | Organization | [facility] | + + + | Address | Unknown | + + + | Phone | Unavailable | + + + Support + + +---------+ + | Name | Relationship | Address | Phone | + + +---------+ + | Royce Menchaca | ECON | Unknown | | + + +---------+ + Care Team Providers + +------+ + | Care Engineering Faculty Member Name | Role | Phone | + +------+ + | Oxana Nye | PCP | | + +------+ + Reason for Visit + + + | Reason | Comments | + + + | New Patient Visit | | + + + Consultation (Routine) +--------+--------+ + + + + | Status | Reason | Specialty | Diagnoses / | Referred By | Referred To | | | | | Procedures | Contact | Contact | +--------+--------+ + + + + | Closed | | Cardiology | Diagnoses | No | Airam Fuchs | | | | | Chest | Referring | [place] [id number] | | | | | pressure | Provider Per | [address] | | | | | Procedures | Patient NO | [address] | | | | | [place] NEW | REFERRING | [place], [place] | | | | | PATIENT | PROVIDER PER | [id number] Phone: | | | | | LEVEL V [place] | PT | [phone] | | | | | OFFICE/OUTPT | | Fax: | | | | | | | [phone] | | | | | VISIT,EST,LE | | | | | | | GINA III MA | | | | | | | OFFICE/OUTPT | | | | | | | | | | | | | | VISIT,EST,LE | | | | | | | VL IV MA | | | | | | | EST PATIENT | | | | | | | LEVEL V | | | +--------+--------+ + + + + Encounter Details +--------+---------+ + + + | Date | Type | Department | Care Team | Description | +--------+---------+ + + + | 03/09/ | Office | Cardiology General | Airam Fuchs MD | Chest pain, | | 2016 | Visit | at [facility] [address] | [address] | unspecified type | | | | [address] [facility] | [address] [facility], | (Primary Dx); | | | | Health and Healing, | [place] [address] | Palpitations | | | | [facility] | [phone] | | | | | Floor [place], [place] | | | | | | [address] | | | | | | [phone] | | | +--------+---------+ + + + [...] Pressure | 134/71 | 03/09/2016 3:31 PM | | | | | PDT | | + + + + + | Pulse | 76 | 03/09/2016 3:31 PM | | | | | PDT | | + + + + + | Temperature | 36.7 C (98 F) | 03/09/2016 3:31 PM | | | | | PDT | | + + + + + | Respiratory Rate | - | - | | + + + + + | Oxygen Saturation | 100% | 03/09/2016 3:31 PM | | | | | PDT | | + + + + + | Inhaled Oxygen | - | - | | | Concentration | | | | + + + + + | Weight | 58.5 kg (129 lb) | 03/09/2016 3:31 PM | | | | | PDT | | + + + + + | Height | 156.2 cm (5' 1.5") | 03/09/2016 3:31 PM | | | | | PDT | | + + + + + | Body Mass Index | 23.98 | 03/09/2016 3:31 PM | | | | | PDT | | + + + + + documented in this encounter Patient Instructions Patient Instructions Airam Fuchs Md - 03/09/2016 4:31 PM PDT1. Stop the clopidogrel. 2. Continue the aspirin. 3. Continue the atorvastatin for now. We will check your cholesterol today. 4. Make sure to check your blood pressure everyday and write it down. Also take your blood pressure when you feel dizzy or lightheaded. 5. Start taking amodipine 5 mg daily. 6. Talk with your primary care physician about ordering a sleep study to check for sleep ap poornima. 7. We will obtain a 30 day event monitor to check for abnormal test. documented in this encounter Progress Notes Hayden Tiago DO Harshal - 03/16/2016 1:57 PM PDTATTENDING NOTE: I saw and evaluated Ms. Rubio with Dr. Fuchs. Management discussed in detail. I agree with the findings, assessment and plan of care as per Dr. Fuchs's note. Tiago Blake DO [employer] Clinical compensation vice president/ Division of Cardiovascular Medicine Airam Nicole Md - 03/09/2016 3:27 PM PDT [facility] General Cardiology New Patient Evaluation Patient ID: Ms. Kori Rubio is a 70 y.o. female with hypothyroidism and dep ression/anxiety who presents to cardiology clinic for a new patient evaluation for chest yessica n. HPI: Ms. Mcintosh reports that she first started experiencing chest pain about 4 months ago. She initially went to a local ED and had blood work and an EKG and was told everything was okay. She was weaning her benzodiazapine and thought perhaps this was related. Then in early 2015 she has worsening chest pain and presented again to her local ED. She was then transf erred to [facility] in [facility] where she was put into the ICU due to hypote nsion following administration of nitroglycerine. She eventually underwent coronary angiogra m on which was read as diffusely normal coronary arteries with a small chronically occl uded OM1. She was started on ASA, atorvastatin, clopidogrel, Imdur and metoprolol (unknown d oses as discharge summary unavailable). She also had an echocardiogram during that admission which revealed normal EF without significant valvular disease. Initially she felt well after discharge. She did not take the Imdur or the metoprolol due t o concerns that her blood pressure would get to low. She has chronic dizziness/verigo and un steady gait. She also has presyncope and falls but no shankar syncope. She attributes the dizz iness to low blood pressure but does not actually check her blood pressure. She states her b aseline blood pressure is 90s/60s. She also has palpitations and dyspnea that occur mostly in the middle of the night. She fee ls her heart beating erratically. These episodes occur randomly, sometimes every other day a nd sometimes every couple of weeks. She comes to [facility] today because she wants a second opinion regarding her chest pain. She marcos s been having more consistent chest pain over the last week or so. It occurs both at rest an d with light activity and lasts about an hour. She takes SLNG which helps. Sometimes she has to take two pills. She has checked her blood pressure at these times and it is high, around 170s/80s. At baseline she walks "5-8 miles per day" and "all around town." She very rarely has chest pain with this activity. She does have MEJIA which she attributes to her asthma. No orthopnea. ROS: A 10 point ROS was performed and was negative except per the pertinent positives and negati ves in the HPI. Past Medical History Diagnosis Date Diabetes (HCC) Suicide attempt (HCC) Depression Recurrent UTI Scoliosis Hypothyroidism 03/15/2016 Anxiety 03/15/2016 Current Medications Patient is Taking: Levothyroxine 112 Mcg Tablet - Take 88 mcg by mouth once daily. Clonazepam 1 Mg Tablet - Take 0.5 mg by mouth once daily at bedtime. Hydrocodone 10 Mg-acetaminophen 325 Mg Tablet - Take 1 tablet by mouth every six hours as needed. Ibuprofen 600 Mg Tablet - Take by mouth. Loratadine 10 Mg Tablet - Take 10 mg by mouth once daily. Ranitidine 150 Mg Capsule - Take 150 mg by mouth once daily at bedtime. Ropinirole 2 Mg Tablet - Take 2 mg by mouth once daily in the evening. Atorvastatin 40 Mg Tablet - Take 40 mg by mouth once daily. Clopidogrel 75 Mg Tablet - Take 75 mg by mouth once daily. Aspirin 81 Mg Tablet,delayed Release - Take 81 mg by mouth once daily. Nitrostat 0.4 Mg Sublingual Tablet - Past Surgical History Procedure Date Hysterectomy 1993 Bladder sling surgery 2004 with mesh Family History Problem Relation Diabetes Mother type 1 Heart Attack Cancer Social History: History Substance Use Topics Smoking status: Never Smoker Smokeless tobacco: Never Used Alcohol Use: No Physical Exam: BP 134/71 | Pulse 76 | Temp (Src) 36.7 C (98 F) (Forehead) | Ht 1.562 m (5' 1.5") | Wt 58.514 kg (129 lb) | SpO2 100% | BMI 23.98 kg/(m^2) Gen: thin, frail, no acute distress HEENT: MMM, sclera anicteric Neck: supple, no LAD, thyroid normal Pulm: resp unlabored, clear to ascultation bilaterally CV: RRR, no murmurs, rubs or gallops, JVP not elevated, radial and DP pulses 2+ and symmetr ic GI: flat, normoactive bowel sounds, soft, non-tender Ext: warm, well perfused, no edema Neuro: alert and oriented, good historian, unsteady gait Psych: intermittently tearful during interview and would not disclose why Labs/Imaging: Transthoracic Echo 01/05/16: Coronary Angiogram 01/06/2016: Assessment/Plan: 70 y.o. female with hypothyroidism and depression/anxiety who presents to cardiology clinic for a new patient evaluation for chest pain. 1. Chest Pain: Unclear etiology. Personally reviewed angiogram films and I do not appreciat e any significant OM vessel that is occluded. Her coronary arteries, in fact, look quite goo d without heavy atherosclerotic plaque burden. She certainly does not have any epicardial co ronary artery disease to explain her symptoms nor anything that could be intervened upon. He r chest pain could represent microvascular dysfunction but she does not have the classic ris k factors for this. Coronary vasospasm also a consideration, though normal EKG while having chest pain makes this less likely. Non-cardiac chest pain a strong possibility, including an xiety, GERD and esophageal spasm. It was explained to her that it is not clear her chest yessica n is cardiac in nature but that it would be reasonable for a trial of medical therapy. Her n on-compliance is a challenge and she is reluctant to take any anti-anginal medications due t o concerns about hypotension, though she does not actually have any documentation of low blo od pressures at home. In the end she agreed to a trial of low dose amlodipine. Additionally, given lack of strong evidence of obstructive CAD and no evidence of NSTEMI during admission to OSH, I see no indication for DAPT and instructed her to stop her clopidogrel. Lastly, delmy quiroz does not have a strong CV indication for a statin and I will check a lipid panel and if ve ry low LDL will stop atorvastatin. - start amlodipine 5 mg daily - instructed to take blood pressure every day and when she feels poorly and to write these numbers down - RN to call in 1 week to discuss blood pressure readings - stop clopidogrel - cont atorvastatin for now - check lipid panel - if LDL low, will consider stopping atorvastatin 2. Palpitations: Also unclear. Occur mostly at night and are associated with dyspnea. Will check 30 day event monitor. Also encouraged her to see PCP regarding sleep study for possibl e LORI. Follow-Up: Return to cardiology clinic in 2 months. This patient was seen and discussed with my attending, Dr. Tiago Blake, who agrees with my assessment and plan unless otherwise noted. documented in this encou nter Plan of Treatment + +------+--------+ + + | Name | Type | Priori | Associated Diagnoses | Order Schedule | | | | ty | | | + +------+--------+ + + | 30 DAY CARDIAC | ECG | Routin | Palpitations | Ordered: 03/09/2016 | | MONITOR - ECG | | e | | | + +------+--------+ + + documented as of this encounter Results [facility] - LIPID PROFILE- PLASMA LIPIDS, HDL AND LDL (03/09/2016 4:54 PM PDT) + +-------+ + + + | Component | Value | Ref Range | Performed | Pathologist | | | | | At | Signature | + +-------+ + + + | TOTAL | 154 | <=200 mg/dl | [facility] | | | CHOLESTEROL | | | LAB | | | - LIPID | | | | | | LAB | | | | | + +-------+ + + + | VLDL | 9 | <=31 mg/dl | [facility] | | | CHOLESTEROL | | | LAB | | | , | | | | | | CALCULATED | | | | | | - LIPID LAB | | | | | + +-------+ + + + | LDL, | 45 | <=100 mg/dl | [facility] | | | CHOLESTEROL | | | LAB | | | - LIPID | | | | | | LAB | | | | | + +-------+ + + + | HDL, | 100 | 49 - 120 mg/dl | [facility] | | | CHOLESTEROL | | | LAB | | | - LIPID | | | | | | LAB | | | | | + +-------+ + + + | TOTAL | 44 | <=150 mg/dl | [facility] | | | TRIGLYCERID | | | LAB | | | E - LIPID | | | | | | LAB | | | | | + +-------+ + + + | NON-HDL | 54 | <=130 mg/dL | [facility] | | | CHOLESTEROL | | | LAB | | | (LIPID | | | | | | LAB) | | | | | + +-------+ + + + + + | Specimen | + + | Blood - Blood | | (substance) | + + + + + + + | Performing | Address | City/State/Zipcode | Phone Number | | Organization | | | | + + + + + | [facility] | [id number] | [place], [place] | | | | [place] | [phone] | | + + + + + documented in this encounter Visit Diagnoses + + | Diagnosis | + + | Chest pain, unspecified type - Primary | + + | Palpitations | + + documented in this encounter
--- OUTSIDE RECORDS SUMMARY | ~2020-05-30 | XMS | Encounter Summary ---
Demographics + + + | Address | [address] | | | [place] [address] | + + + | Home Phone | | + + + | Preferred Language | Unknown | + + + | Marital Status | | + + + | Christian Affiliation | [phone] | + + + [...] Team Providers + +------+ + | Care Belt Knife Feeder Name | Role | Phone | + [...] Description | +--------+---------+ + + + | 12/17/ | Office | [facility] | Denys Sibley, | S/P insertion of | | 2019 | Visit | [facility] | DO [address] | spinal cord | | | | [address] | [place], [place] | stimulator (Primary | | | | [address] | [phone] | Dx); Spinal stenosis | | | | [place], [place] | | of lumbosacral | | | | [address] | | region; Lumbar | | | | [phone] | | region somatic | | | | | | dysfunction; | | | | | | Intractable back | | | | | | pain; Chronic pain | | | | | [...] region; | | | | | | Degenerative lumbar | | | | | | spinal stenosis; | | | | | | Urinary tract | | | | | | infection without | | | | | | hematuria, site | | | | | | unspecified | +--------+---------+ + + + Social History [...] + + + | Blood Pressure | 116/53 | 12/17/2019 3:15 PM | | | | | PST | | + + + + + | Pulse | 61 | 12/17/2019 3:15 PM | | | | | PST | | + + + + + | Temperature | - | - | | + + + + + | Respiratory Rate | 16 | 12/17/2019 3:15 PM | | | | | PST | | + + + + + | Oxygen Saturation | 100% | 12/17/2019 3:15 PM | | | | | PST | | + + + + + | Inhaled Oxygen | - | - | | | Concentration | | | | + + + + + | Weight | 52.7 kg (116 lb 3.2 | 12/17/2019 3:15 PM | | | | oz) | PST | | + + + + + | Height | 154.9 cm (5' 1") | 12/17/2019 3:15 PM | | | | | PST | | + + + + + | Body Mass Index | 21.96 | 12/17/2019 3:15 PM | | | | | PST | | + + + + + documented in this encounter Progress Notes Denys Sibley, DO - 12/17/2019 3:40 PM PSTFormatting of this note might be different fr om the original. CHRONIC PAIN VISIT Patient ID: Kori Rubio is a 74 y.o. female (: 1945). Subjective: Chronic Pain: 74-year-old female seen back in the office today for medication evaluation f ankur. Current pain medication we give her chronic pain syndrome is Graham 10/325 1 p.o. every 4 ho urs as needed pain. Robaxin 500 mg p.o. every 6 hours as needed muscle spasms. Current pain problem consists of his spinal stenosis of the lumbosacral region, lumbar re gion somatic dysfunction, intractable back pain, chronic pain disorder, chronic bilateral lo w back pain with right-sided sciatica, foraminal stenosis of the lumbar region left L5-S1. Lumbar spondylosis, lumbar spinal stenosis, long-term current use of opioid analgesics, Kori Rubio presents for chronic pain evaluation [...] including but not limited to physical therapy, home day care provider, acupuncture, massage therapy, and nutritional healt h counselors. and mental health counselors as deemed necessary Today's Pain Score: 5/10. Patient states that her pain overall has slightly improved on her current regimen. The patient reports Cold weather and moisture worsens symptoms, and [address] heat, pain medication, muscle relaxants relieves symptoms. Additional psycho-social event s since last visit include: none. The patient's current personal goal of pain management i s: "Plan to be pain-free and off of all pain medication". Things she is doing to reach that goal include: Program. Progress toward meeting that goal has been: fair. Medication FYI Flag Type Author Status Filed Medication Agreement Rupa Nye, Sort Line Worker Active 11/14/2019 1:49 PM Pain Contract- Dr. Sibley 11/14/2019 PEG Pain screening tool (Pain, enjoyment, general activity) Total score: (Printable questionnaires in American ) Interpretation of Total Score: PEG scores are used to track changes over time. It should de crease after therapy has begun. Last 4 PEG Scores: No flowsheet data found. Opioid Risk Tool (ORT): Total Score Pulse: 61 Resp: 16 BP: 116/53 SpO2: 100 % (From Chronic Pain tab; printable questionnaires in American) Interpretation of Total Score: 0 to 3 = Low risk: 6% chance of developing problematic behav iors, 4 to 7 = Moderate risk: 28% chance of developing problematic behaviors, 8 or more = Hi gh risk: 90% chance of developing problematic behaviors. No flowsheet data found. Outpatient Morphine Equivalent Daily Dose (MEDD) 12/17/19 and after None Current Outpatient Medications: ALBUTEROL [...] Acid reflux disease Acute renal failure ([facility]) April 2013 Adverse effect of anesthesia hx hallucinations after anesthesia x 3 yrs ago. Anesthesia hallucinated after bladder repair Arthralgia Arthritis Asthma Asthma Back pain Cancer ([facility]) 2004 breast Cataract Cerebrovascular accident (CVA) ([facility]) no per pt Chronic back pain Chronic back pain Chronic constipation Concussion 07/2015 Preceeded by seizure Constipation COPD (chronic obstructive pulmonary disease) ([facility]) Degenerative disc disease Depression Depression Diabetes mellitus ([facility]) Diabetes mellitus, type 2 (HCC) diet controlled Diabetes type 2, controlled ([facility]) diet controlled Diarrhea Disorder of [...] Scoliosis of lumbar spine 04/17/2014 Seizure ([facility]) one due to meds, two [...] 15-21 = Severe Anxiety) Additional Problems: HPI Final stenosis lumbosacral region, lumbar region somatic dysfunction, intractable back pain , chronic pain disorder, chronic low back pain with right-sided sciatica, status post insert ion of spinal cord stimulator, foraminal stenosis lumbar region left L5-S1 region, current u rinary tract infection. History: Past Medical History: Diagnosis Date Acid reflux disease Acute renal failure ([facility]) April 2013 Adverse effect of anesthesia hx hallucinations after anesthesia x 3 yrs ago. Anesthesia hallucinated after bladder repair Arthralgia Arthritis Asthma Asthma Back pain Cancer ([facility]) 2004 breast Cataract Cerebrovascular accident (CVA) ([facility]) no per pt Chronic back pain Chronic back pain Chronic constipation Concussion 07/2015 Preceeded by seizure Constipation COPD (chronic obstructive pulmonary disease) ([facility]) Degenerative disc disease Depression Depression Diabetes mellitus ([facility]) Diabetes mellitus, type 2 ([facility]) diet controlled Diabetes type 2, controlled ([facility]) diet controlled Diarrhea Disorder of [...] Procedure: KYPHOPLASTY; Surgeon: Alfredo Casillas DO; Location: [facility] MAIN OR; Service: Pa in Management; Laterality: N/A; L5 FRACTURE SURGERY ANKLE HERNIA REPAIR HYSTERECTOMY HYSTERECTOMY LAMINECTOMY N/A 08/03/2019 Procedure: LAMINOTOMY THORACIC / LUMBAR W/ PLACEMENT SPINAL CORD STIMULATOR; Surgeon: Suly Hutchins MD; [place] [facility] [place]ICAL H[place]ORY EPIDURAL STEROID INJECTION OTHER SURGICAL HISTORY 08/28/2018 EPIDURAL STEROID INJECTION - LESI L4-L5 OTHER SURGICAL HISTORY 09/11/2018 EPIDURAL STEROID INJECTION - LESI L5-S1 OTHER SURGICAL HISTORY UNLISTED PROCEDURE ARTHROSCOPY SLING REMOVAL , BLADDER 2006 TUBAL LIGATION UPPER GASTROINTESTINAL ENDOSCOPY Review of Systems Constitutional: Negative. HENT: Positive for hearing loss. Gastrointestinal: Negative. Genitourinary: Positive for dysuria, frequency and urgency. Musculoskeletal: Positive for back pain and joint pain. Skin: Negative. Review of Systems Constitutional: Negative. HENT: Positive for hearing loss. Gastrointestinal: Negative. Genitourinary: Positive for dysuria, frequency and urgency. Musculoskeletal: Positive for back pain and joint pain. Skin: Negative. Objective: Vital Signs: BP 116/53 | Pulse 61 | Resp 16 | Ht 1.549 m (5' 1") | Wt 52.7 kg (116 lb 3 .2 oz) | LMP (LMP Unknown) | SpO2 100% | BMI 21.96 kg/m Physical Exam 74-year-old female alert and oriented x3 bowel and bladder continent. Madison almanzar does not have any bowel issues however she is client complained about urinary frequency and burning over the last 48 hours. Apparently patient gets frequent urinary tract infectio ns. Active range of motion left upper extremity within functionless muscle strength is 4/5 on t he left. 3/5 on the right. Patient has limited right shoulder range of motion to approxima tely 80 degrees flexion abduction. With any increased pain with attempted motion above the shoulder level. Forearm wrist and hand is within functional limits in both upper extremities. Patient complains about discomfort involving all the joints of the upper and lower extremit ies. Balance seems good, standing is fair plus. Gait is without assistive device in a slow shuffling style gait weightbearing as tolerated. Patient's current major pain problems on her right shoulder and occasionally her right hip. No results found for this or any previous visit (from the past 672 hour(s)). Improved Functional Status for Age Including ADL's, [...] reviewed, listed controlled substances are consistent with [facility] prescriptions and patient reported use. Controlled Medications: no change. Refills given as appropriate for the next 1 months, and she will follow up befo re next refill is due. Recent Review Flowsheet Data There is no flowsheet data to display. Pertinent Pain History: Chronic pain related to Neck pain, spine spinal stenosis lumbosacral region, intractable lo w back pain, chronic pain disorder, past medical history as outlined above Helpful treatments: Moist heat, pain medication, Failed treatments: Ice therapy ORT Score = 3 (0-3 = low risk, 4-7 = mod risk, 8+ = high risk) Daily Opioid Dose = Graham 10/325 1 p.o. every 4 hours as needed pain Daily Morphine Equivalent Dose (MED) = 60 mg of morphine daily Chronic benzodiazepine use: noPain Agreement (date): {YES/NO:2 Visits every: Monthly Drug Screen every: ACR Next Refill due: 30-day Follow-up: Patient return the office in 4 weeks reevaluation. Patient states current medication provides significant pain relief and improve quality life . Patient incidentally appears to have developed a possible urinary tract infection we have raoul borja courtesy prescriptions of Macrobid 100 mg twice a day for 10 days. In 3 days with the Pyridium to decrease his symptoms. Patient complains of burning sensation and frequent urin ation. Over the last 48 hours. No follow-ups on file. Total time spent with the patient was 10 minutes of which more than 50 % was spent discussi ng above evaluation findings, treatment options and coordination of care. Alternative treatment modalities where discussed and offered to patient including but not l imited to physical therapy, massage therapy, acupuncture, home day care provider, along with niki mmended psychological counseling, either privately, or in group sessions offered by private care individuals, community services, or mormon organizations. Appropriate referrals were made at patient [...] and complications with the passage of time. [facility] use is also associated with depressions, and liver and renal failure. Finally, these medicines are associated with both physical and emotional addiction and can be difficult to stop after taking for only a few weeks. This document has been created using [employer] Voice Recognition software and [employer]. The entry has been reviewed for content and accuracy, but there may still exist "sound alike" customer solutions representative word errors and/or unintended additions and deletions. If there is any question please contact the author of the document: Denys Sibley DOElectrontran sig marianne by Denys Sibley DO at 12/17/2019 3:44 PM PSTdocumented in this encounter Plan of Treatment +--------+---------+ + + + | Date | Type | Specialty | Care Team | Description | +--------+---------+ + + + | 06/18/ | Office | Pain Medicine | Denys Sibley, | | | 2019 | Visit | | DO [address] | | | | | | [place], [place] | | | | | | [address] | | | | | | | | +--------+---------+ + + + | 06/26/ | Office | Cardiology | FaustinaMonserrat | | | 2019 | Visit | | [address] | | | | | | [address] | | | | | | [place] [address] | | | | | | [phone] | | | | | | | [...] pain Backache, unspecified | + + | Chronic pain disorder Chronic pain syndrome | + + | Chronic bilateral low back pain with right-sided sciatica | + + | 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 Spinal stenosis, lumbar region, | | without neurogenic claudication | + + | Scoliosis of lumbar spine, unspecified scoliosis type | + + | Facet arthritis of lumbar region Lumbosacral spondylosis without myelopathy | + + | Strain of lumbar region, subsequent encounter | + + | Spondylosis without myelopathy or radiculopathy, lumbosacral region | + + | Degenerative lumbar spinal stenosis Spinal stenosis, lumbar region, without | | neurogenic claudication | + + | Urinary tract infection without hematuria, site unspecified | + + documented in this encounter
--- OUTSIDE RECORDS SUMMARY | ~2020-05-30 | XMS | Encounter Summary ---
Demographics + + + | Address | [address] | | | [place] [address] | + + + | Home Phone | | + + + | Preferred Language | Unknown | + + + | Marital Status | | + + + | Church Affiliation | 1013 | + + + | Race | Unknown | + + + | Ethnic Group | Unknown | + + + Author + + + | Author | [facility] | | | and [place] | + + + | Organization | [facility] | | | [...] Team Providers + +------+ + | Care Iv Technician Name | Role | Phone | [...] Description | +--------+---------+ + + + | 02/14/ | Office | [facility] | Denys Sibley, | S/P insertion of | | 2019 | Visit | [facility] | DO [address] | spinal cord | | | | [address] [place] | stimulator (Primary | | | | [address] | [phone] | Dx); Spinal stenosis | | | | [place], [place] | | of lumbosacral | | | | [address] | | region; Lumbar | | | | [phone] | | region somatic | | | | | | dysfunction; | | | | | | Intractable back | | | | | | pain; Degenerative | | | | | | lumbar spinal | | | | | | stenosis; Chronic | | | | | | pain disorder; | | | | | | Spondylosis [...] | | | | | | sciatica; Scoliosis | | | | | | of lumbar spine, | | | | | | unspecified | | | | | | scoliosis type; | | | | | | Foraminal stenosis | | | | | | of lumbar region - | | | | | | left L5-S1; Facet | | | | | | arthritis of lumbar | | | | | | region; Encounter | | | | | | for long-term use of | | | | [...] + + + | Blood Pressure | 104/56 | 02/15/2020 2:26 PM | | | | | PDT | | + + + + + | Pulse | 80 | 02/15/2020 2:26 PM | | | | | PDT | | + + + + + | Temperature | 36.9 C (98.5 F) | 02/15/2020 2:26 PM | | | | | PDT | | + + + + + | Respiratory Rate | 20 | 02/15/2020 2:26 PM | | | | | PDT | | + + + + + | Oxygen Saturation | 100% | 02/15/2020 2:26 PM | | | | | PDT | | + + + + + | Inhaled Oxygen | - | - | | | Concentration | | | | + + + + + | Weight | 51.8 kg (114 lb 3.2 | 02/15/2020 2:26 PM | patient states | | | oz) | PDT | | + + + + + | Height | 154.9 cm (5' 1") | 02/15/2020 2:26 PM | | | | | PDT | | + + + + + | Body Mass Index | 21.58 | 02/15/2020 2:26 PM | | | | | PDT | | + + + + + documented in this encounter Progress Notes Denys Sibley, DO - 02/15/2020 2:40 PM PDTFormatting of this note might be different fr om the original. CHRONIC PAIN VISIT Patient ID: Kori Rubio is a 74 y.o. female (: 1945). Subjective: Chronic Pain: The primary encounter diagnosis was S/P insertion of spinal cord stimulator. Diagnoses of S jessika stenosis of lumbosacral region, Lumbar region somatic dysfunction, Intractable back pa in, Degenerative lumbar spinal stenosis, Chronic pain disorder, Spondylosis without myelopat hy or radiculopathy, lumbosacral region, Chronic bilateral low back pain without sciatica, L ow back pain without sciatica, unspecified back pain laterality, unspecified chronicity, Chr onic bilateral low back pain with right-sided sciatica, Scoliosis of lumbar spine, unspecifi ed scoliosis type, 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, and Facet arthritis of lumbar region were also pertinent to this visit. Kori Rubio presents for chronic pain evaluation [...] including but not limited to physical therapy, resident care manager, acupuncture, massage therapy, and nutritional healt h counselors. and mental health counselors as deemed necessary Today's Pain Score: 6/10. Patient states that her pain overall is unchanged on her curre nt regimen. The patient reports cold weather worsens symptoms, and moist heat muscle relaxan ts relieves symptoms. Additional psycho-social events since last visit include: none. The patient's current personal goal of pain management is: " Patient would like to be pain-free and off of all pain medication". Things she is doing to reach that goal include: Home exerc ise program. Progress toward meeting that goal has been: fair. Medication FYI Flag Type Author Status Filed Medication Agreement Rupa Nye, Door Installer Active 11/14/2019 1:49 PM Pain Contract- Dr. Sibley 11/14/2019 PEG Pain screening tool (Pain, enjoyment, general activity) Total score: (Printable questionnaires in Faroese ) Interpretation of Total Score: PEG scores are used to track changes over time. It should de crease after therapy has begun. Last 4 PEG Scores: No flowsheet data found. Opioid Risk Tool (ORT): Total Score Temp: 36.9 C (98.5 F) Pulse: 80 Resp: 20 BP: 104/56 SpO2: 100 % (From Chronic Pain tab; printable questionnaires in Faroese) Interpretation of Total Score: 0 to 3 = Low risk: 6% chance of developing problematic behav iors, 4 to 7 = Moderate risk: 28% chance of developing problematic behaviors, 8 or more = Hi gh risk: 90% chance of developing problematic behaviors. No flowsheet data found. Outpatient Morphine Equivalent Daily Dose (MEDD) 02/15/20 and after None Current Outpatient Medications: ALBUTEROL [...] (HCC) 2004 breast Cataract Cerebrovascular accident (CVA) ([facility]) no per pt Chronic back pain Chronic back pain Chronic constipation Concussion 07/2015 Preceeded by seizure Constipation COPD (chronic obstructive pulmonary disease) ([facility]) Degenerative disc disease Depression Depression Diabetes mellitus ([facility]) Diabetes mellitus, type 2 ([facility]) diet controlled Diabetes type 2, controlled ([facility]) diet controlled Diarrhea Disorder of thyroid Diverticulosis [...] Scoliosis of lumbar spine 04/17/2014 Seizure ([facility]) one due to meds, two due to [...] Drug use: No Mood Screening: PHQ-9 Depression 9 (5-9 = Mild, 10-14 = Moderate, 15-19 = Moderately Severe, 20-27 = Severe) Anxiety Scale11 (5-9 = Mild, 10-14 = Moderate, 15-21 = Severe Anxiety) Additional Problems: HPI Tonic bilateral low back pain without sciatica, spondylosis without myelopathy lumbosacral region, chronic pain syndrome, degenerative lumbar spinal stenosis, intractable back pain, l umbar region somatic dysfunction, spinal stenosis lumbar region, status post spinal cord sti mulator insertion, foraminal stenosis lumbar region left L5-S1. Facet arthritis of lumbar r egion, close compression fracture of fifth lumbar vertebra, History: Past Medical History: Diagnosis Date Acid reflux disease Acute renal failure ([facility]) April 2013 Adverse effect of anesthesia hx hallucinations after anesthesia x 3 yrs ago. Anesthesia hallucinated after bladder repair Arthralgia Arthritis Asthma Asthma Back pain Cancer (HCC) 2005 breast Cataract Cerebrovascular accident (CVA) (HCC) no per pt Chronic back pain Chronic [...] Scoliosis of lumbar spine 04/17/2014 Seizure ([facility]) one due to meds, two due to [...] Procedure: KYPHOPLASTY; Surgeon: Alfredo Casillas DO; Location: [facility] MAIN OR; Service: Pa in Management; Laterality: N/A; L5 FRACTURE SURGERY ANKLE HERNIA REPAIR HYSTERECTOMY HYSTERECTOMY LAMINECTOMY N/A 08/03/2019 Procedure: LAMINOTOMY THORACIC / LUMBAR W/ PLACEMENT SPINAL CORD STIMULATOR; Surgeon: Suly Hutchins MD; Location: [facility] MAIN OR OTHER SURGICAL HISTORY EPIDURAL STEROID INJECTION OTHER SURGICAL HISTORY 08/28/2018 EPIDURAL STEROID INJECTION - LESI L4-L5 OTHER SURGICAL HISTORY 09/11/2018 EPIDURAL STEROID INJECTION - LESI L5-S1 OTHER SURGICAL HISTORY UNLISTED PROCEDURE ARTHROSCOPY SLING REMOVAL , BLADDER 2006 TUBAL LIGATION UPPER GASTROINTESTINAL ENDOSCOPY Review of Systems Constitutional: Positive for activity change. Gastrointestinal: Negative. Genitourinary: Negative. Musculoskeletal: Positive for arthralgias (Degenerative joint disease multiple joints multi ple sites), back pain and gait problem. Neurological: Positive for weakness. Objective: Vital Signs: BP 104/56 | Pulse 80 | Temp 36.9 C (98.5 F) | Resp 20 | Ht 1.549 m (5' 1") | Wt 51.8 kg (114 lb 3.2 oz) Comment: patient states | LMP (LMP Unknown) | SpO2 100% | BMI 21.58 kg/m Physical Exam 74 -year-old female alert and oriented x4 vital signs are stable still compla ining of acute low back pain she did not get the x-ray that was ordered on her last visit. Bowel bladder continent. No bowel issues with current medication. Patient is afebrile. Patient is no respiratory symptoms. Patient is not traveled to an [facility] in the last 8 to 10 weeks. Current medication include [place] 10/325 1 p.o. every 4 hours as needed pain, Robaxin 500 mg 3 times a day. Still complains of acute low back pain. She did not get the x-ray that was ordered on last visit. Because the hospitals were busy with emergent care regarding the pandemic. Active range of motion bilateral upper extremities within functional limits muscle strength is 4/5. Active range of motion bilateral lower extremities and functionless muscle strength is 3+ t o 4- 5. Patient complains of significant midline lumbar spine the pain apparently does no t radiate via to either lower extremity at this point in time. But she finds it very diffic ult walking. She can raise up and down on her heels and toes in the seated position and spicer se her hips as well. Patient denies any specific trauma to the area. Balancing is good, standing is good, gait is limited utilizes a roller walker. Weightbeari ng as tolerated only short distances After lengthy discussion with the patient we will get her another appointment for lumbar sp ine x-ray and outpatient facility that should be able to accommodate her at this point in ti me she return to the office in 4 weeks reevaluation meanwhile she will continue on her curre nt medication program of [place] 10/325 1 p.o. every 4 hours as needed pain and Robaxin 500 mg 3 times a day. Depending on the results of the x-ray patient may benefit from a brace. An d/or surgical or orthospine referral for surgery and/or perhaps vertebroplasty or kyphoplast y if indicated. Patient understands the above panel plan is in full agreement. Patient demonstrates improved functional status on above [...] reviewed, listed controlled substances are consistent with community healthcare system prescriptions and patient reported use. Controlled Medications: no change. Refills given as appropriate for the next 1 months, and she will follow up befor e next refill is due. Recent Review Flowsheet Data There is no flowsheet data to display. Pertinent Pain History: Chronic pain related to him as included above HPI Helpful treatments: Moist heat and pain medication Failed treatments: Ice therapy ORT Score = 3 (0-3 = low risk, 4-7 = mod risk, 8+ = high risk) Daily Opioid Dose = [place] 10/325 1 p.o. every 4 hours as needed pain Daily Morphine Equivalent Dose (MED) = 60 mg of morphine daily Chronic benzodiazepine use: no Pain Agreement (date): {YES/N Visits every: Month Drug Screen every: Twice year Next Refill due: 30 days Follow-up: Return his office in 4 weeks reevaluation Alternative treatment modalities where discussed and offered to patient including but not l imited to physical therapy, massage therapy, acupuncture, resident care manager, along with niki mmended psychological counseling, either [...] and complications with the passage of time. skilled nursing use is also associated with depressions, and [...] and coordination of care with other health managed care analyst and monitoring labs results, other test results and imagin g including [facility] and/or [facility] prescription monitoring systems. This document has been created using [employer] DTS Recognition software and [employer]. The entry has been reviewed for content and accuracy, but there may still exist "sound alike" light air defense artillery crewmember word errors and/or unintended additions and deletions. If there is any question please contact the author of the document: Denys Sibley DOElectronically sig marianne by Denys Sibley DO at 02/15/2020 2:51 PM PDTdocumented in this encounter Plan of Treatment +--------+---------+ + + + | Date | Type | Specialty | Care Team | Description | +--------+---------+ + + + | 06/18/ | Office | Pain Medicine | Denys Sibley, | | 2019 | Visit | | [address] | | | | | | [place] | | | | | | [phone] | | | | | | | | +--------+---------+ + + + | 06/26/ | Office | Cardiology | Monserrat Weems | | 2019 | Visit | | [address] | | | | | | [address] | | | | | | [place] [address] | | | | | | [phone] | | | | | | | | +--------+---------+ + + + + +---------+--------+ + + | Name | Type | Priori | Associated Diagnoses | Order Schedule | | | | ty | | | + +---------+--------+ + + | XR Lumbar Spine 4 + | Imaging | Routin | S/P insertion of | Expected: | | Vw | | e | spinal cord | 02/15/2020, Expires: | | | | | stimulator Spinal | 02/14/2021 | | | | | stenosis of | | | | | | lumbosacral region | | | | | | Intractable back | | | | | | pain | | + +---------+--------+ + + documented as [...] Chronic pain syndrome | + + | Spondylosis without myelopathy or radiculopathy, lumbosacral region | + + | Chronic bilateral low back pain without sciatica | + + | Low back pain without sciatica, unspecified back pain laterality, unspecified | | chronicity | + + | Chronic bilateral low back pain with right-sided sciatica | + + | Scoliosis of lumbar spine, unspecified scoliosis type | + + | 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 Spinal stenosis, lumbar region, | | without neurogenic claudication | + + | Facet arthritis of lumbar region Lumbosacral spondylosis without myelopathy | + + | Encounter for long-term use of opiate analgesic Encounter for long-term (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 | | of other medications | + + | Closed compression fracture of fifth lumbar vertebra, sequela | + + documented in this encounter
--- OUTSIDE RECORDS SUMMARY | ~2020-05-30 | XMS | Encounter Summary ---
Demographics + + + | Address | [address] | | | [place] [address] | + + + | Home Phone | | + + + | Preferred Language | Unknown | + + + | Marital Status | | + + + | Orthodoxy Affiliation | 1013 | + + + | Race | Unknown | + + + | Ethnic Group | Unknown | + + + Author + + + | Author | [facility] | | | and [place] | + + + | Organization | [facility] | | [...] Team Providers + +------+ + | Care Sheet Metal Duct Installer Name | Role | Phone | + +------+ + | Wendi Aiken | PCP | | + +------+ + Reason for Visit + +--------+ + | Reason | Onset | Comments | | | Date | | + +--------+ + | Medication Follow-up | 04/10/ | | | | 2018 | | + +--------+ + Encounter Details +--------+ + + + + | Date | Type | Department | Care Team | Description | +--------+ + + + + | 04/10/ | Telephone | [facility] | Nick Martinez, | Medication Follow-up | | 2018 | | [address]SIATRY [address] | PA-C [address] | | | | | [address] | [address] [facility] | | | | | [place], [place] | [place] [address] | | | | | [address] | [phone] | | | | | [phone] | | | +--------+ + + + [...] documented as of this encounter Miscellaneous Notes Addendum Note - Fortino Parrish Operational Communication Chief - 04/13/2018 2:07 PM PDT Addended by: FORTINO PARRISH on: 04/13/2018 14:07 Modules accepted: Orders el ephone Encounter - Fortino Parrish Operational Communication Chief - 04/13/2018 2:03 PM PDTCalled patie nt to relay Nick's message concerning PT, a brace, and a follow up back XR. Patient express ed understanding and was grateful for my call. elephone Encounter - Nick Martinez PA-C - 018 9:14 AM PDTMaddie, Please call patient regarding physical therapy order. I have ordered PT for her at [facility] to fit her for back brace and help her with her back pain and radicular symptoms. After therapy is complete I will put in order for her to have lumbar xray to view the state of he r fracture and healing progress. Thanks, Nick Martinez PA-C ddendum Note - Fortino Parrish Operational Communication Chief - 04/12/2018 8:42 AM PDT Addended by: FORTINO PARRISH on: 08:42 Modules accepted: Orders el ephone Encounter - Fortino Parrish Operational Communication Chief - 04/12/2018 8:32 AM PDTPatient call ed with continued pain, stating her primary was unsure whether PT was advisable given her cu rrent condition and directed the patient to call our office. I advised the patient Nick off ered PT in the past for treatment of her continued low back pain, but due to the confusion w ith her state insurance and current participation in PT for her shoulder this suggestion was not pursued. I also advised the patient we can put the order in for physical therapy but th ere was no determined length of time it may take for the order to be authorized or guarantee that it would be authorized. The patient expressed understanding, and inquired what else delmy quiroz can do. I restated that at this point our office is doing all they are comfortable doing i n regards to her care by prescribing PT, and the 5% lidocaine patches. The patient stated delmy quiroz does not believe the lidocaine patches will work anyways, because her primary prescribed h er fentanyl patches and more Russell. The patient was advised that an order would be placed fo r PT, but that is the extent of treatment for her pain that our office is willing to prescri be. The patient reported her primary care physician was "hoping to refer her back" to our of replaced by [facility]. I again stated we have no other treatments for her pain other than PT, because our off ice doesn't not prescribe opioids, and she is unable to have steroid injections. The patient expressed understanding and was thankful for my time. elephone Encounter - Fortino Parrish, Med ical Lead Fabricator - 04/10/2018 10:17 AM PDTCalled patient to discuss the previously prescribed 5% lidocaine patches. I advised the patient that I would be working on receiving prior auth. For this medication, but it may take a few days, so in the meantime it was recommended that she try otc 4% lidocaine patches. The patient stated she has already tried these and they d o not work, with the additional comment that they are hard for her to apply to herself. I ad vised the patient Nick's other suggestion was to continue to work with her PCP concerning c ontinued pain management and that if needed he would be willing to prescribe PT. The patient stated she is working with her primary, and is participating in physical therapy for her sh oulder, but not her back through a "state claim". I advised the patient it would be best for our office to wait to prescribe PT for her back until she completes PT through the state. T he patient expressed understanding. In summation I advised the patient she should continue t o work with her PCP concerning pain management/medications, and I would continue to work on a prior authorization for the patient's 5% lidocaine patched. The patient expressed understa nding. Tdocumented in this encounter Plan of Treatment +--------+---------+ + + + | Date | Type | Specialty | Care Team | Description | +--------+---------+ + + + | 06/18/ | Office | Pain Medicine | Denys Sibley, | | | 2019 | Visit | | [address] | | | | | | [place] | | | | | | [address] | | | | | | | | +--------+---------+ + + + | 06/26/ | Office | Cardiology | Monserrat Weems | | | 2019 | Visit | | [address] | | | | | | [address] | | | | | | [place] [address] | | | | | | [phone] | | | | | | | | +--------+---------+ + + + documented as of this encounter Visit Diagnoses Not on filedocumented in this encounter
--- OUTSIDE RECORDS SUMMARY | ~2020-05-30 | XMS | Encounter Summary ---
Demographics + + + | Address | [address] | | | [place] [address] | + + + | Home Phone | | + + + | Preferred Language | Unknown | + + + | Marital Status | | + + + | Baptist Affiliation | 1013 | + + + [...] Team Providers + +------+ + | Care Paint And Table Edger Name | Role | Phone | + +------+ + | Romy De La Paz MD | PCP | | + +------+ + Reason for Visit +--------+--------+ + | Reason | Onset | Comments | | | Date | | +--------+--------+ + | Triage | 08/31/ | | | | 2019 | | +--------+--------+ + Encounter Details +--------+ + + + + | Date | Type | Department | Care Team | Description | +--------+ + + + + | 08/31/ | Telephone | [facility] | Alfredo Casillas DO | Triage | | 2019 | | [facility] | [address] | | | | | MEDICINE [facility] | [place] [address] | | | | | [address] | [phone] | | | | | [place], [place] | | | | | | [address] | | | | | | [phone] | | | +--------+ + + + [...] this encounter Miscellaneous Notes Telephone Encounter - Virginie Carmona RN - 08/31/2019 3:50 PM PDTCall from patient. Hal nt states that she had back surgery on 08/[address] Hutchins and had a spinal cord stimulator i nserted. She has muscle spasms in her back and today and yesterday they have been worse. She states that she is having a lot of muscle spasms. She states that she was told to use ice but is not helping anything. She states that she is not sleeping. She states that walking usually helps but it didn't help today, it just made her tired. She states that she is struggling with her depression issues because she hasn't b een sleeping. She states that they reduced her Fentanyl from 25 mg to 12.5 mg and is not sure if this is why she is having so many problems. She states if she lays in bed and doesn't do much then she is okay. She states that she is running a fever of 100.3 degrees. Patient states that she has had diarrhea. She does not know if she is having problems with her nerves controlling her bowel or bladder. Advised patient that if she is having difficult y with bowel or bladder function she needs to go to the ED for evaluation. She states that s he doesn't believe it is her nerves. She states that Dr. Casillas's office told her to call Dr. Hutchins's office but they haven't ca lled her back yet. Patient has an appointment with Dr. Casillas on 09/17 but has not been seen by him since February 2019. Patient states that Dr. Sibley typically manages the muscle spasms. She states that he gave her methocarbamol for her muscle spasms. She states that she did no t take one this morning. Advised patient to take her medications as recommended. She states that Martin is usually the person she contacts in regards to the neurostimulator . Advised patient to contact Martin to discuss the neurostimulator. While on the phone patient reported that Dr. Hutchins's office was calling her. [facility] patient so she may speak with his office.Electronically signed by Virginie Carmona RN at 1 10/31/2018 4:11 PM PDTTelephone Encounter - Virginie Carmona RN - 08/31/2019 3:41 PM PDTRet urn call to patient. LVM for patient to return call to clinic. elephone Encounter - Lizy Gilmore - 08/31/2019 2 :39 PM PDTPt is in extreme amount of pain, dr hutchins had surgery on the pt on 08/03/19. Pt stat es their office told her to follow up with us will any issue. documented in this encounter Plan of Treatment +--------+---------+ + + + | Date | Type | Specialty | Care Team | Description | +--------+---------+ + + + | 06/18/ | Office | Pain Medicine | Denys Sibley, | | | 2019 | Visit | | [address] | | | | | | [place] | | | | | | [address] | | | | | | | | +--------+---------+ + + + | 06/26/ | Office | Cardiology | Monserrat Weems | | | 2019 | Visit | | [address] | | | | | | [address] | | | | | | [place] [address] | | | | | | [phone] | | | | | | | | +--------+---------+ + + + documented as of this encounter Visit Diagnoses Not on filedocumented in this encounter"
--- OUTSIDE RECORDS SUMMARY | ~2020-05-30 | XMS | Encounter Summary ---
Demographics + + + | Address | [address] | | | [place] [address] | + + + | Home Phone [...] Team Providers + +------+ + | Care Chinchilla Machine Operator Name | Role | Phone [...] + + | Closed | Specialty | Anticoagulati | Diagnoses | Castillo, | [facility] | | | Services | on | Paroxysmal | DO Zuleyka | Anticoagulati | | | Required | | atrial | [address] | on Clinic | | | | | fibrillation | [facility] | [place] | | | | | ([facility]) | [place] [address] | [address] | | | | | | [place], [place] | [place], | | | | | | [address] | [place] [address] | | | | | | Phone: | Phone: | | | | | | [phone] | [phone] | | | | | | Fax: | Fax: | | | | | | [phone] | [phone] | +--------+ + + + + + Reason for Visit + + + | Reason | Comments | + + + | Follow-up | stress test / 1 month | + + + Encounter Details +--------+---------+ + + + | Date | Type | Department | Care Team | Description | +--------+---------+ + + + | 04/03/ | Office | [facility] | Zuleyka Castillo DO | Paroxysmal atrial | | 2020 | Visit | CARDIOLOGY GINGER | [address] | fibrillation (HCC) | | | | [address] | [place] | (Primary Dx) | | | | [address] [place] [address] | [address] | | | | | [place] | | | | | | [address] | | | | | | [phone] | | | +--------+---------+ + + + [...] + + + | Blood Pressure | 92/54 | 04/03/2020 9:17 AM | | | | | PDT | | + + + + + | Pulse | 69 | 04/03/2020 9:17 AM | | | | | PDT | | + + + + + | Temperature | - | - | | + + + + + | Respiratory Rate | - | - | | + + + + + | Oxygen Saturation | 98% | 04/03/2020 9:17 AM | | | | | PDT | | + + + + + | Inhaled Oxygen | - | - | | | Concentration | | | | + + + + + | Weight | 52.2 kg (115 lb) | 04/03/2020 9:17 AM | | | | | PDT | | + + + + + | Height | 154.9 cm (5' 1") | 04/03/2020 9:17 AM | | | | | PDT | | + + + + + | Body Mass Index | 21.73 | 04/03/2020 9:17 AM | | | | | PDT | | + + + + + documented in this encounter Progress Notes Zuleyka Castillo, DO - 04/03/2020 9:20 AM PDT [facility] Cardiology Cardiology Follow Up Note Reason for Consultation: afib Requesting Physician: History Obtained From: patient HISTORY OF PRESENT ILLNESS: Cardiac Problem List Paroxysmal atrial fibrillation Mild carotid stenosis Non Cardiac Problem List Hypothyroidism Chronic Back [...] was started on Eliquis 5 mg by mo [facility] twice daily as well as metoprolol tartrate [...] anticoagulation well withou t any bleeding problems. Interim history I last saw the patient on 02/28/2020. At that time, we started the patient on Eliquis 5 m g by mouth twice daily and obtained an exercise nuclear stress test. The patient reports th at she was unable to afford the Eliquis. We gave her the names of several other direct oral 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 and she reports that she was unable to afford these either. She has not yet sent in the paperwork for the Eliquis prescription program. She was encouraged to do this . At last visit, we also discontinued metoprolol tartrate and started her on metoprolol suc cinate 25 mg by mouth daily. On her exercise nuclear stress test, she was only able to comp lete the treadmill portion. She exercised for 5 minutes and 50 seconds, after which she col lapsed resulting in a rapid response team call. There were no ischemic EKG changes or arrhy thmias during the rapid response. There was no chest pain reported with exercise, but the re was some shortness of breath reported. The treadmill score was positive 5. She was eval uated in the emergency department where she was found to have low blood sugars in the 60s. She was given orange juice and felt better. She denies any paroxysms of atrial fibrillation since we last saw each other, that she is aware of. She has had a few episodes of lighthea dedness, but denies any overt syncopal episodes. Review of Systems Constitutional: Negative for fatigue. [...] disease Acute renal failure ([facility]) April 2013 Adverse effect of anesthesia hx hallucinations after anesthesia x 3 yrs ago. Anesthesia hallucinated after bladder repair Arthralgia Arthritis Asthma Asthma Back pain Cancer ([facility]) 2004 breast Cataract Cerebrovascular accident (CVA) ([facility]) no per pt Chronic back pain Chronic back pain Chronic constipation Concussion 07/2015 Preceeded by seizure Constipation COPD (chronic obstructive pulmonary disease) ([facility]) Degenerative disc disease Depression Depression Diabetes mellitus ([facility]) Diabetes mellitus, type 2 ([facility]) diet controlled Diabetes type 2, controlled ([facility]) diet controlled Diarrhea Disorder of thyroid Diverticulosis [...] Procedure: KYPHOPLASTY; Surgeon: Alfredo Casillas DO; Location: [facility]; Service: Pa in Management; Laterality: N/A; L5 FRACTURE SURGERY ANKLE HERNIA REPAIR HYSTERECTOMY HYSTERECTOMY LAMINECTOMY N/A 08/03/2019 Procedure: LAMINOTOMY THORACIC / LUMBAR W/ PLACEMENT SPINAL CORD STIMULATOR; Surgeon: Suly Hutchins MD; Location: [facility] MAIN OR OTHER SURGICAL HISTORY EPIDURAL STEROID INJECTION OTHER SURGICAL HISTORY 08/28/2018 EPIDURAL STEROID INJECTION - LESI L4-L5 OTHER SURGICAL HISTORY 09/11/2018 EPIDURAL STEROID INJECTION - LESI L5-S1 OTHER SURGICAL HISTORY UNLISTED PROCEDURE ARTHROSCOPY SLING REMOVAL , BLADDER 2006 TUBAL LIGATION UPPER GASTROINTESTINAL ENDOSCOPY MEDICATIONS Home Medications Outpatient Encounter Medications as of 04/03/2020 Medication Sig Dispense Refill ALBUTEROL IN Inhale into the lungs. apixaban (ELIQUIS) 5 mg tablet Take 1 tablet by mouth 2 times daily. 180 tablet 3 clonazePAM (KLONOPIN) 1 mg tablet Take 1-2 mg by mouth nightly as needed for Anxiety. HYDROcodone-acetaminophen (NORCO) 10-325 mg per tablet Take [...] by mouth Daily. 30 ta blet 11 naloxone (NARCAN) 4 mg/nasal spray 1 spray by Nasal route as needed for Decreased Respo nsiveness (May repeat with second device into other nostril after 2 minutes). (Patient not t aking: Reported on 03/17/2020) 2 each 1 rOPINIRole (REQUIP) 2 MG tablet Take 2 mg by mouth 4 times daily. 3 No facility-administered encounter medications on file as of 04/03/2020. Allergies Allergies Allergen Reactions Prednisolone Other (See [...] level: Not on file Occupational History Occupation: [employer] Social Needs Financial resource strain: Not on [...] Not on file PHYSICAL EXAM Vital Signs: LMP (LMP Unknown) Physical Exam GENERAL: Thin female, in no [...] hemoglobin 11.7, hematocrit 36.8, platelet count 339 Blood work from 03/05/2020 reviewed including sodium 140, potassium 4.1, chloride 107, carbon dioxide 26, glucose 95, BUN 21, creatinine 0.74, AST 16, ALT 18, alkaline phosphatase 49, t otal bilirubin 0.2, white blood cell count 5.9, hemoglobin 12.1, hematocrit 36.6, platelets 281 EKG: Last Echo: 10/01/2019 normal left ventricular function, ejection fraction 60 to 65%, no hemodynamically significant valve abnormalities, left and right atria were normal in size. Last stress test: 03/05/2021- EKG exercise stress test for stress-induced ischemia. The patient did collapse a fter 5 minutes and 50 seconds of exercise with rapid response called. There were no ischemi c EKG changes or arrhythmias aside from diffuse response. There was no chest pain reported with exercise, shortness of breath was reported. Pace treadmill score was +5 Last cath: Carotid US: AAA screening: Lower extremity US: OTHERS: ASSESSMENT & PLAN 1. Paroxysmal atrial fibrillation 2. Hypothyroidism 3. Chronic pain 4. Mild carotid disease -The patient is a 74-year-old female who presents to the cardiology office for follow up. Last visit, we discussed starting anticoagulation due to her history of atrial fibrillation. She reports that she was unable to afford Eliquis, she also looked into the other direct o ral 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 and was unable to afford any of them. We had an extensive discussion abo ut risks and benefits of anticoagulation. We discussed starting Coumadin. The patient is o pen to starting Coumadin but would like to try to transition over to a direct oral anticoagu lant if possible in the future. She denies any paroxysms of atrial fibrillation since we la st saw each other. - Start Coumadin 5 mg after establishing with the Coumadin clinic -We will place referral to Coumadin clinic for INR monitoring - Continue metoprolol succinate 25mg po daily - Follow up in 3 months with Monserrat Weems Thank you for allowing me to participate in the care of this patient. Primary Care Physician: MD Zuleyka Lopez DO 04/03/2020 documented in this enco unter Plan of Treatment +--------+---------+ + + + | Date | Type | Specialty | Care Team | Description | +--------+---------+ + + + | 06/18/ | Office | Pain Medicine | Denys Silbey, | | | 2019 | Visit | | DO [address] | | | | | | [place] | | | | | | [address] | | | | | | | | +--------+---------+ + + + | 06/26/ | Office | Cardiology | Monserrat Weems | | | 2019 | Visit | | [address] | | | | | | [address] | | | | | | [place] [address] | | | | | | [phone] | | | | | | | | +--------+---------+ + + + + + +--------+ + + | Name | Type | Priori | Associated Diagnoses | Order Schedule | | | | ty | | | + + +--------+ + + | Ambulatory Referral | Outpatient | Routin | Paroxysmal atrial | Ordered: 04/03/2020 | | to [facility] | Referral | e | fibrillation (HCC) | | | Anticoagulation | | | | | | Monitoring | | | | | + + +--------+ + + documented as of this encounter Visit Diagnoses + + | Diagnosis | + + | Paroxysmal atrial fibrillation (HCC) - Primary Atrial fibrillation | + + documented in this encounter
--- OUTSIDE RECORDS SUMMARY | ~2020-05-30 | XMS | Encounter Summary ---
Demographics + + + | Address | [address] | | | [place] [address] | + + + | Home Phone | | + + + | Preferred Language | Unknown | + + + | Marital Status | | + + + | Rastafari Affiliation | 1013 | + + + | Race | Unknown | + + + | Ethnic Group | Unknown | + + + Author + + + | Author | [facility] | | | and [place] | + + + | Organization | [facility] | | [...] Team Providers + +------+ + | Care Patient Transporter Name | Role | Phone | + +------+ + | Wendi Aiken | PCP | | + +------+ + Encounter Details +--------+ + + + + | Date | Type | Department | Care Team | Description | +--------+ + + + + | 04/07/ | Imaging | [facility] | David, | | | 2018 | Exam | [facility] | MD [address] | | | | | IM[address] | | | | | [address] | [place] [address] | | | | | [place] [address] | | | | | | [phone] | | | +--------+ + + + [...] [place] | | | | | | [address] | | | | | | | | +--------+---------+ + + + | 06/26/ | Office | Cardiology | Monserrat Weems | | | 2019 | Visit | | [address] | | | | | | [address] | | | | | | [place] [address] | | | | | | [phone] | | | | | | | [...]
--- OUTSIDE RECORDS SUMMARY | ~2020-05-30 | XMS | Encounter Summary ---
Demographics + + + | Address | [address] | | | [place] [address] | + + + | Home Phone | | + + + | Preferred Language | Unknown | + + + | Marital Status | | + + + | Mormonism Affiliation | 1013 | + + + [...] Team Providers + +------+ + | Care Passenger Booking Clerk Name | Role | Phone | + +------+ + | Romy De La Paz MD | PCP | | + +------+ + Encounter Details +--------+ + + + + | Date | Type | Department | Care Team | Description | +--------+ + + + + | 07/18/ | Clinical | [facility] | | Radiculopathy of | | 2018 | Support | NEUROSURGERY [address] | | thoracolumbar | | | | [address] | | region; | | | | [place], [place] | | Postlaminectomy | | | | [address] | | syndrome, thoracic | | | | [phone] | | region | +--------+ + + [...] concerns feel free to call us at [phone]. documented in this encounter Progress Notes Niki [...] restrictions, medications - stop NSAID's on 07/27/19, february resume 1 we ek post-op, diet - increase fluids and fiber intake, post-op wound care, when to call the do ctor. Advised patient to take pain medication and muscle relaxer 1 hour apart, taking togeth er increases drowsiness and risk of falls. Questions were addressed, patient and friend ligia balized understanding of given instruction. Patient states that she will on occasion run a l ow grade fever and all tests and blood work come back negative infection, patient states she does have a history of UTI's as well. Patient was sent to [facility] for their scheduled pre-admit appointment, [...] 06/18/ | Office | Pain Medicine | BelenDenys mo Kadi, | | | 2019 | Visit | | DO [address] | | | | | | [place] | | | | | | [address] | | | | | | | | +--------+---------+ + + + | 06/26/ | Office | Cardiology | FaustinaMonserrat | | | 2019 | Visit | | [address] | | | | | | [address] | | | | | | [place] [address] | | | | | | [phone] | | | | | | | | +--------+---------+ + + + documented as of this encounter Visit Diagnoses + + | Diagnosis | + + | Radiculopathy of thoracolumbar region Thoracic or lumbosacral neuritis or | | radiculitis, unspecified | + + | Postlaminectomy syndrome, thoracic region | + + documented in this encounter
--- OUTSIDE RECORDS SUMMARY | ~2020-05-30 | XMS | Encounter Summary ---
Demographics + + + | Address | [address] | | | [place] [address] | + + + | Home Phone | | + + + | Preferred Language | Unknown | + + + | Marital Status | | + + + | Baptist Affiliation | 1013 | + + + | Race | Unknown | + + + | Ethnic Group | Unknown | + + + Author + + + | Author | [facility] | | | and [place] | + + + | Organization | [facility] | | [...] Providers + +------+ + | Care Metal Model Builder Name | Role | Phone | + +------+ + | Romy De La Paz MD | PCP | | + +------+ + Encounter Details +--------+ + + + + | Date | Type | Department | Care Team | Description | +--------+ + + + + | 07/17/ | Prep for | [facility] | Maykel Hutchins MD | Chronic low back | | 2019 | Procedure | [facility] | [address] | pain with sciatica, | | | | [facility] | [place], [place] | sciatica laterality | | | | [address] [place] | [address] | unspecified, | | | | [place], [place] | | unspecified back | | | | [address] | | pain laterality | | | | [phone] | | (Primary Dx); Right | | | | | | lumbar | | | | | | radiculopathy; | | | | | | Degenerative lumbar | | | | | | spinal stenosis | +--------+ + + + + Social [...] [place] | | | | | | [address] | | | | | | | | +--------+---------+ + + + | 06/26/ | Office | Cardiology | Monserrat Weems | | | 2019 | Visit | | [address] | | | | | | [address] | | | | | | [place] [address] | | | | | | [phone] | | | | | | | | +--------+---------+ + + + + + +--------+ + + | Name | Type | Priori | Associated Diagnoses | Order Schedule | | | | ty | | | + + +--------+ + + | CBC with | Lab | Routin | Chronic low back | Expected: | | Differential | | e | pain with sciatica, | 07/19/2019, Expires: | | | | | sciatica laterality | 07/17/2020 | | | | | unspecified, | | | | | | unspecified back | | | | | | pain laterality | | | | | | Right lumbar | | | | | | radiculopathy | | | | | | Degenerative lumbar | | | | | | spinal stenosis | | + + +--------+ + + | Comprehensive | Lab | Routin | Chronic low back | Expected: | | Metabolic Panel | | e | pain with sciatica, | 07/19/2019, Expires: | | | | | sciatica laterality | 07/17/2020 | | | | | unspecified, | | | | | | unspecified back | | | | | | pain laterality | | | | | | Right lumbar | | | | | | radiculopathy | | | | | | Degenerative lumbar | | | | | | spinal stenosis | | + + +--------+ + + | Protime INR | Lab | Routin | Chronic low back | Expected: | | | | e | pain with sciatica, | 07/19/2019, Expires: | | | | | sciatica laterality | 07/17/2020 | | | | | unspecified, | | | | | | unspecified back | | | | | | pain laterality | | | | | | Right lumbar | | | | | | radiculopathy | | | | | | Degenerative lumbar | | | | | | spinal stenosis | | + + +--------+ + + | PTT | Lab | Routin | Chronic low back | Expected: | | | | e | pain with sciatica, | 07/19/2019, Expires: | | | | | sciatica laterality | 07/17/2020 | | | | | unspecified, | | | | | | unspecified back | | | | | | pain laterality | | | | | | Right lumbar | | | | | | radiculopathy | | | | | | Degenerative lumbar | | | | | | spinal stenosis | | + + +--------+ + + | Type and Screen | Blood Bank | Routin | Chronic low back | Expected: | | | | e | pain with sciatica, | 07/19/2019, Expires: | | | | | sciatica laterality | 07/17/2020 | | | | | unspecified, | | | | | | unspecified back | | | | | | pain laterality | | | | | | Right lumbar | | | | | | radiculopathy | | | | | | Degenerative lumbar | | | | | | spinal stenosis | | + + +--------+ + + | ECG 12 lead | ECG | Routin | Chronic low back | Expected: | | | | e | pain with sciatica, | 07/19/2019, Expires: | | | | | sciatica laterality | 07/17/2020 | | | | | unspecified, | | | | | | unspecified back | | | | | | pain laterality | | | | | | Right lumbar | | | | | | radiculopathy | | | | | | Degenerative lumbar | | | | | | spinal stenosis | | + + +--------+ + + | XR Chest PA and | Imaging | Routin | Chronic low back | Expected: | | Lateral | | e | pain with sciatica, | 07/19/2019, Expires: | | | | | sciatica laterality | 07/17/2020 | | | | | unspecified, | | | | | | unspecified back | | | | | | pain laterality | | | | | | Right lumbar | | | | | | radiculopathy | | | | | | Degenerative lumbar | | | | | | spinal stenosis | | + + +--------+ + + | MRSA NAAT | Microbiolog | Routin | Chronic low back | Expected: | | | y | e | pain with sciatica, | 07/19/2019, Expires: | | | | | sciatica laterality | 07/17/2020 | | | | | unspecified, | | | | | | unspecified back | | | | | | pain laterality | | | | | | Right lumbar | | | | | | radiculopathy | | | | | | Degenerative lumbar | | | | | | spinal stenosis | | + + +--------+ + + documented as of this encounter Visit Diagnoses + + | Diagnosis | + + | Chronic low back pain with sciatica, sciatica laterality unspecified, unspecified back | | pain laterality - Primary | + + | Right lumbar radiculopathy Thoracic or lumbosacral neuritis or radiculitis, | | unspecified | + + | Degenerative lumbar spinal stenosis Spinal stenosis, lumbar region, without | | neurogenic claudication | + + documented in this encounter"
--- OUTSIDE RECORDS SUMMARY | ~2020-05-30 | XMS | Encounter Summary ---
Demographics + + + | Address | [address] | | | [place] [address] | + + + | Home Phone | | + + + | Preferred Language | Unknown | + + + | Marital Status | | + + + | Lutheran Affiliation | 1013 | + + + [...] Team Providers + +------+ + | Care Corner Trimmer Operator Name | Role | Phone | + +------+ + | Romy De La Paz MD | PCP | | + +------+ + Reason for Visit + +--------+ + | Reason | Onset | Comments | | | Date | | + +--------+ + | Appointment | 03/14/ | | | | 2020 | | + +--------+ + Encounter Details +--------+ + + + + | Date | Type | Department | Care Team | Description | +--------+ + + + + | 03/14/ | Telephone | [facility] | Denys Sibley, | Appointment | | 2019 | | [facility] | DO [address] | | | | | [address] | [place], [place] | | | | | [address] | [address] | | | | | [place], [place] | | | | | | [address] | | | | | | [phone] | | | +--------+ + + + [...] this encounter Miscellaneous Notes Telephone Encounter - Ewelina Farrar, Grocery Shopper - 03/14/2020 11:40 AM P DTProactive screening for upcoming office visit to help ensure the clinic environment remain s a safe place to receive care. 1. Patient reports the following symptoms and/or exposure on the epidemic risk screen: none . The patient reported no symptoms or exposure and proceeded with proactive screening process . 2. Have you or someone you are in close contact with been tested for COVID-19?: No 3. Does the patient have MyChart Access?: Yes. Encouraged use of the E-Check In feature. 4. Is the patient allowed a visitor per policy?: no. If yes, were questions 1 and 2 abov e reviewed with the visitor?: no. Please be aware that you will be asked these same questions when you arrive at the clinic. If you have any changes in your symptoms between now and your visit, please call us so we c an get you scheduled for an alternative visit before you arrive at the clinic. For your safety and the safety of others, we ask that if you are being seen in person at on e of our clinics you arrive wearing a mask. Hand washing is crisostomo to keeping our clinic a safe place to receive care. While you are in ou r clinics you will be asked to perform hand washing at different intervals throughout your v isit. A M PDTdocumented in this encounter Plan of Treatment +--------+---------+ + + + | Date | Type | Specialty | Care Team | Description | +--------+---------+ + + + | 06/18/ | Office | Pain Medicine | Denys Sibley, | | | 2019 | Visit | | DO [address] | | | | | | [place] | | | | | | [address] | | | | | | | | +--------+---------+ + + + | 06/26/ | Office | Cardiology | Monserrat Weems | | | 2019 | Visit | | [address] | | | | | | [address] | | | | | | [place] [address] | | | | | | [phone] | | | | | | | | +--------+---------+ + + + documented as of this encounter Visit Diagnoses Not on filedocumented in this encounter"
--- OUTSIDE RECORDS SUMMARY | ~2020-05-30 | XMS | Encounter Summary ---
Demographics + + + | Address | [address] | | | [place] [address] | + + + | Home Phone [...] Team Providers + +------+ + | Care Silver Steward Name | Role | Phone | + +------+ + PCP | Unavailable | + +------+ + Encounter Details +--------+ + + + + | Date | Type | Department | Care Team | Description | +--------+ + + + + | 07/13/ | Abstract | [place] [facility] | DATA MIGRATION DOUG | | | 2011 | | Conversion Location | SR | | | | | [address] [facility] | | | | | | [place], [place] | | | | | | [address] | | | | | | [phone] | | | +--------+ + + + [...] + | Blood Pressure | 128/72 | 10/18/2011 12:00 AM | | | | | PST [...] + + + + | Weight | 70.2 kg (154 lb 12.8 | 10/18/2011 12:00 AM | | | | oz) | PST | | + + + + + | Height | 160 cm (5' 3") | 08/31/2011 12:00 AM | | | | | PDT | | + + + + + | Body Mass Index | 27.42 | 08/31/2011 12:00 AM | | | | | PDT | | + + + + + documented in this encounter Plan of Treatment +--------+---------+ + + + | Date | Type | Specialty | Care Team | Description | +--------+---------+ + + + | 06/18/ | Office | Pain Medicine | Denys Sibley, | | | 2019 | Visit | | DO [address] | | | | | | [place] | | | | | | [address] | | | | | | | | +--------+---------+ + + + | 06/26/ | Office | Cardiology | Monserrat Weems | | | 2019 | Visit | | [address] | | | | | | [address] | | | | | | [place] [address] | | | | | | [phone] | | | | | | | | +--------+---------+ + + + documented as of this encounter Visit Diagnoses Not on filedocumented in this encounter
--- OUTSIDE RECORDS SUMMARY | ~2020-05-30 | XMS | Encounter Summary ---
Demographics + + + | Address | [address] | | | [place] [address] | + + + | Home Phone [...] Team Providers + +------+ + | Care Residential Appraiser Name | Role | Phone | + +------+ + | Wendi Aiken | PCP | | + +------+ + Encounter Details +--------+ + + + + | Date | Type | Department | Care Team | Description | +--------+ + + + + | 06/07/ | Hospital | [facility] | Conversion | | | 2018 | Encounter | [facility] | Transaction, | | | | | CLINIC [address] | Provider Unknown | | | | | [address] [place], [place] | | | | | | [address] | (Fax) | | | | | [phone] | | | +--------+ + + + [...] | Blood Pressure | 99/59 | 06/07/2018 3:05 PM | | | | | PDT | | + + + + + | Pulse | 66 | 06/07/2018 3:05 PM | | | | | [...] 53.3 kg (117 lb 9.6 | 06/07/2018 3:05 PM | | | | oz) | PDT | | + + + + + | Height | 154.9 cm (5' 1") | 06/07/2018 3:05 PM | | | | | PDT | | + + + + + | Body Mass Index | 22.22 | 06/07/2018 3:05 PM | | | | | [...] + + documented as of this encounter Procedure Notes Beth South, Provider Unknown - 06/07/2018 3:37 PM PDTFormatting of this note m ight be different from the original. Pre-Procedure Instructions by Linn Bills RN at 06/07/181536 Author: Linn Bills RN Service: (none) Author Type: Registered Nurse Filed: 06/07/18 9239 Date of Service: 06/07/181536 Status: Signed Casing Sewer: Linn Bills RN (Registered Nurse) Patient call Dr. Casillas's office to say she has no one to stay with her after her surgery. She requested to spend the night. Office informed her they will let Dr. Casillas know and wi ll call her tomorrow. docume nted in this encounter Plan of [...] [place] | | | | | | [address] | | | | | | | | +--------+---------+ + + + | 06/26/ | Office | Cardiology | Monserrat Weems | | | 2019 | Visit | | [address] | | | | | | [address] | | | | | | [place] [address] | | | | | | [phone] | | | | | | | | +--------+---------+ + + + documented as of this encounter Procedures + +--------+ + + + | Procedure Name | Priori | Date/Time | Associated Diagnosis | Comments | | | ty | | | | + +--------+ + + + | EXTERNAL LAB: CBC | Routin | 06/07/2018 | | Results for this | | | e | 3:01 PM | | procedure are in the | | | | PDT | | results section. | + +--------+ + + + | BASIC METABOLIC | Routin | 06/07/2018 | | Results for this | | PANEL | e | 3:01 PM | | procedure are in the | | | | PDT | | results section. | + +--------+ + + + | ECG 12 LEAD | Routin | 06/07/2018 | | Results for this | | | e | 2:54 PM | | procedure are in the | | | | PDT | | results section. | + +--------+ + + + documented in this encounter Results External Lab: CBC (06/07/2018 3:01 PM PDT) + + + + + + | Component | Value | Ref Range | Performed | Pathologist | | | | | At | Signature | + + + + + + | WBC | 5.54 | 3.80 - 11.00 | EXTERNAL | | | | | K/uL | LAB | | + + + + + + | Non- | 4.30 | 3.70 - 5.10 | EXTERNAL | | | Red Blood | | M/uL | LAB | | | Cells | | | | | | Counted | | | | | + + + + + + | Hemoglobin | 12.4 | 11.3 - 15.5 | EXTERNAL | | | | | g/dL | LAB | | + + + + + + | Hematocrit, | 36.6 | 34.0 - 46.0 % | EXTERNAL | | | POC | | | LAB | | + + + + + + | MCV | 85.2 | 80.0 - 100.0 fl | EXTERNAL | | | | | | LAB | | + + + + + + | MCH | 28.9 | 27.0 - 34.0 pg | EXTERNAL | | | | | | LAB | | + + + + + + | MCHC | 33.9 | 32.0 - 35.5 | EXTERNAL | | | | | g/dL | LAB | | + + + + + + | RDW-CV | 41.6 | 37 - 53 fl | EXTERNAL | | | | | | LAB | | + + + + + + | Platelet | 386 | 150 - 400 K/uL | EXTERNAL | | | Count | | | LAB | | | Plasma | | | | | + + + + + + | MPV | 7.7 | fl | EXTERNAL | | | | | | LAB | | + + + + + + | Differentia | AUTOMATED | | EXTERNAL | | | l Type | | | LAB | | + + + + + + | % Segmented | 38.59 | % | EXTERNAL | | | | | | LAB | | | Neutrophils | | | | | + + + + + + | % | 50.45 | % | EXTERNAL | | | Lymphocytes | | | LAB | | + + + + + + | % Monocytes | 8.12 | % | EXTERNAL | | | | | | LAB | | + + + + + + | % | 2.31 | % | EXTERNAL | | | Eosinophils | | | LAB | | + + + + + + | % Basophils | 0.53 | % | EXTERNAL | | | | | | LAB | | + + + + + + | Absolute | 2.14 | 1.90 - 7.40 | EXTERNAL | | | Segmented | | K/uL | LAB | | | Neutrophils | | | | | + + + + + + | Absolute | 2.80 | 1.00 - 3.90 | EXTERNAL | | | Lymphocytes | | K/uL | LAB | | + + + + + + | Absolute | 0.45 | 0.00 - 0.80 | EXTERNAL | | | Monocytes | | K/uL | LAB | | + + + + + + | Absolute | 0.13 | 0.00 - 0.50 | EXTERNAL | | | Eosinophils | | K/uL | LAB | | + + + + + + | Absolute | 0.03Comment: Testing | 0.00 - 0.10 | EXTERNAL | | | Basophils | performed at [facility], [address] | K/uL | LAB | | | | [address], | | | | | | [place] [address] | | | | + + + [...] + +---------+ + + Basic Metabolic Panel (06/07/2018 3:01 PM PDT) + + + + + + | Component | Value | Ref Range | Performed | Pathologist | | | | | At | Signature | + + + + + + | Na | 139 | 135 - 145 | EXTERNAL | | | | | mmol/L | LAB | | + + + + + + | K | 3.9 | 3.5 - 4.9 | EXTERNAL | | | | | mmol/L | LAB | | + + + + + + | Cl | 104 | 99 - 109 mmol/L | EXTERNAL | | | | | | LAB | | + + + + + + | CO2 | 28 | 23 - 32 mmol/L | EXTERNAL | | | | | | LAB | | + + + + + + | Anion Gap | 11 | 5 - 20 mmol/L | EXTERNAL | | | | | | LAB | | + + + + + + | Glucose, | 80 | 65 - 99 mg/dL | EXTERNAL | | | Fasting | | | LAB | | + + + + + + | BUN | 17 | 8 - 25 mg/dL | EXTERNAL | | | | | | LAB | | + + + + + + | Creatinine | 0.7 | 0.50 - 1.00 | EXTERNAL | | | | | mg/dL | LAB | | + + + + + + | BUN/Creatin | 24 | | EXTERNAL | | | ine Ratio | | | LAB | | + + + + + + | Calcium | 8.9 | 8.5 - 10.5 | EXTERNAL | | | | | mg/dL | LAB | | + + + [...] | | | | | performed at [facility], [address] | | | | | | [facility], | | | | | | [place] [address] | | | | + + + + + + + + | Specimen | + + | Blood specimen | | (specimen) | + + + +---------+ + + | Performing | Address | City/State/Zipcode | Phone Number | | Organization | | | | + +---------+ + + | EXTERNAL LAB | | | | + +---------+ + + ECG 12 lead (06/07/2018 2:54 PM PDT) + + + + + + | Component | Value | Ref Range | Performed | Pathologist | | | | | At | Signature | + + + + + + | DIAGNOSIS: | Normal sinus rhythm with | | EXTERNAL | | | | sinus arrhythmiaNormal | | LAB | | | | ECGNo significant change | | | | | | since previous ECG | | | | | | Confirmed by ZACKARY SALGADO, | | | | | | SHANICE ([id number]) on 06/08/2018 | | | | | | 1:02:50 PM | | | | + + + + + + + + | Specimen | + + | | + + + + + | Narrative | Performed At | + + + | Historically converted procedure from [facility] | EXTERNAL LAB | + + + + +---------+ + + | Performing | Address | City/State/Zipcode | Phone Number | | Organization | | | | + +---------+ + + | EXTERNAL LAB | | | | + +---------+ + + documented in this encounter Visit Diagnoses Not on filedocumented in this encounter
--- OUTSIDE RECORDS SUMMARY | ~2020-05-30 | XMS | Encounter Summary ---
Demographics + + + | Address | [address] | | | [place] [address] | + + + | Home Phone [...] Team Providers + +------+ + | Care Pest Control Service Technician Name | Role | Phone | + +------+ + | Romy De La Paz MD | PCP | | + +------+ + Encounter Details +--------+---------+ + + + | Date | Type | Department | Care Team | Description | +--------+---------+ + + + | 09/17/ | Office | [facility] | Denys Sibley, | S/P insertion of | | 2018 | Visit | [facility] | DO [address] | spinal cord | | | | [address] | [place] | stimulator (Primary | | | | [address] | [address] | Dx); Spinal stenosis | | | | [place], [place] | | of lumbosacral | | | | [address] | | region; Lumbar | | | | [phone] | | region somatic | | | [...] anterior chest wall ever y 72 hours. [place] 10/325 1 p.o. every 6 hours as [...] not limited to physical therapy, resident care director, acupuncture, massage therapy, and nutritional healt h [...] general activity) Total score: (Printable questionnaires in French ) Interpretation of Total Score: PEG scores are used to track changes over time. It should de crease after therapy has begun. Last 4 PEG Scores: No flowsheet data found. Opioid Risk Tool (ORT): Total Score Pulse: 78 Resp: 16 BP: 102/52 SpO2: 98 % (From Chronic Pain tab; printable questionnaires in French) Interpretation of Total Score: 0 to 3 [...] Asthma Asthma Back pain Cancer ([facility]) 2004 breast Cataract Cerebrovascular accident (CVA) ([facility]) no per pt Chronic back pain Chronic back pain Chronic constipation Concussion 07/2015 Preceeded by seizure Constipation COPD (chronic obstructive pulmonary disease) ([facility]) Degenerative disc disease Depression Depression Diabetes mellitus ([facility]) Diabetes mellitus, type 2 ([facility]) diet controlled Diabetes type 2, controlled ([facility]) diet controlled Diarrhea Disorder of thyroid [...] of lumbar spine 04/17/2014 Seizure ([facility]) one due to meds, two due [...] reflux disease Acute renal failure ([facility]) April 2013 Adverse effect of anesthesia hx hallucinations after anesthesia x 3 yrs ago. Anesthesia hallucinated after bladder repair Arthralgia Arthritis Asthma Asthma Back pain Cancer ([facility]) 2004 breast Cataract Cerebrovascular accident (CVA) ([facility]) no per pt Chronic back pain Chronic back pain Chronic constipation Concussion 07/2015 Preceeded by seizure Constipation COPD (chronic obstructive pulmonary disease) ([facility]) Degenerative disc disease Depression Depression Diabetes mellitus ([facility]) Diabetes mellitus, type 2 ([facility]) diet controlled Diabetes type 2, controlled ([facility]) diet controlled Diarrhea Disorder of thyroid [...] of lumbar spine 04/17/2014 Seizure ([facility]) one due to meds, two due [...] KYPHOPLASTY; Surgeon: Alfredo Casillas DO; Location: [facility] MAIN OR; Service: Pa in Management; Laterality: N/A; L5 FRACTURE SURGERY ANKLE HERNIA REPAIR HYSTERECTOMY HYSTERECTOMY LAMINECTOMY N/A 08/03/2019 Procedure: LAMINOTOMY THORACIC / LUMBAR W/ PLACEMENT SPINAL CORD STIMULATOR; Surgeon: Suly Hutchins MD; Location: [facility] MAIN OR OTHER SURGICAL HISTORY EPIDURAL STEROID [...] reviewed, listed controlled substances are consistent with [facility] prescriptions and patient reported use. Controlled [...] than left and will follow up with pensions retirement plan specialist I believe regarding the shoulder pain [...] physical therapy, massage therapy, acupuncture, resident care director, along with niki mmended psychological counseling, either [...] and complications with the passage of time. intermediate accountant use is also associated with depressions, and liver and renal failure. Finally, these medicines are associated with both physical and emotional addiction and can be difficult to stop after taking for only a few weeks. This document has been created using [employer] Voice Recognition software and [employer]. The entry has been reviewed for content and accuracy, but there may still exist "sound alike" short order cook word errors and/or unintended additions and deletions. [...] [place] | | | | | | [address] | | | | | | | | +--------+---------+ + + + | 06/26/ | Office | Cardiology | Monserrat Weems | | | 2019 | Visit | | [address] | | | | | | [address] | | | | | | [place] [address] | | | | | | [phone] | | | | | | | [...]
--- OUTSIDE RECORDS SUMMARY | ~2020-05-30 | XMS | Encounter Summary ---
Demographics + + + | Address | [address] | | | [place] [address] | + + + | Home Phone | | + + + | Preferred Language | Unknown | + + + | Marital Status | | + + + | Synagogue Affiliation | [id number] | + + + [...] Team Providers + +------+ + | Care Shed Workers Supervisor Name | Role | Phone | [...] + + | 04/28/ | Emergency | [facility] | Jean-Paul Flowers, | Chronic hip pain, | | 2014 | | [facility] | MD [address] | right (Primary Dx); | | | | CENTER [address] | [place], [place] | Chronic low back | | | | [place], [place] | [id number] | pain; Frequent falls | | | | [address] | | | | | | [phone] | | | +--------+ + + + [...] documented in this encounter Discharge Instructions Instructions Jean-Paul Flowers MD - 04/28/2015Follow-up with [facility] from [facility] for assistance with home health, occupational therapy, [...] + + documented as of this encounter ED Notes Jean-Paul Flowers MD - 04/28/2015 8:53 AM PDTFormatting of this note might be different fro m the original. eMERGENCY dEPARTMENT eNCOUnter CHIEF COMPLAINT Chief Complaint Patient presents with Hip Pain Right hip and leg pain HPI Kori LeighFawthrradha is a 69 y.o. female who presents complaining of right hip and r ight lateral thigh pain for the last week and a half worse after a fall last night. She stat es that since 2 a.m. she has had increasing pain today and took a Bradley for pain which did h elp. She has a history of chronic pain as well as frequent falls. She is from [facility] but came to [facility] with the help of a friend because she does not trust the emergency department at [facility]. She has 15 visits there this year and feels like they do not help her. She has a social worker psychiatric in [place] who is working on helping her wit h home health and occupational therapy. She denies any new numbness or weakness in her extre mities. She has some chronic weakness in her left leg from previous foraminal stenosis at L5 -S1. She does not have any saddle anesthesia or bowel or bladder incontinence. She was able to ambulate on her own. She states that she walks almost every day and that her symptoms see med to improve with walking. 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 12/19/2013 Scoliosis of lumbar spine 04/17/2014 Kidney failure Asthma PTSD (post-traumatic stress disorder) Left lumbar radiculopathy 11/01/2012 Feet Hepatitis A SURGICAL HISTORY Past Surgical History Procedure Laterality Date Hysterectomy Cholecystectomy Cystocele repair Fracture surgery ANKLE Colonoscopy 2009 Breast surgery LUMPECTOMY Sling removal , bladder CURRENT MEDICATIONS Discharge Medication List as of 04/28/2015 10:48 CONTINUE these medications which have NOT CHANGED Details albuterol 5 mg/mL nebulizer solution Take 2.5 mg by nebulization every 6 hours as needed.Hi storical Med Albuterol Sulfate (PROAIR HFA IN) Inhale into the lungs.Historical Med clonazepam (KLONOPIN) 2 MG tablet Take 2 mg by mouth Twice daily as needed.Historical Med CYCLOBENZAPRINE HCL PO Take by mouth as needed.Historical Med ergocalciferol (VITAMIN D-2) 50,000 units capsule Take 50,000 Units by mouth Once a week.Hi storical Med Fluticasone-Salmeterol (ADVAIR HFA IN) Inhale into the lungs.Historical Med HYDROcodone-acetaminophen (NORCO) 10-325 mg per tablet Take 1 tablet by mouth every 6 hours as needed.Historical Med ibuprofen (ADVIL,MOTRIN) 600 MG tablet Take 600 mg by mouth every 6 hours as needed.Histori rah Med ipratropium (ATROVENT) 500 mcg/2.5 mL nebulizer solution Take 0.5 mg by nebulization 4 time s daily.Historical Med levothyroxine (SYNTHROID, LEVOTHROID) 112 mcg tablet Take 112 mcg by mouth every morning (b efore breakfast).Historical Med Loratadine 10 MG CAPS Take by mouth.Historical Med methocarbamol (ROBAXIN) 500 mg tablet Take 500 mg by mouth 4 times daily.Historical Med mirtazapine (REMERON SOLTAB) 15 mg disintegrating tablet Take 15 mg by mouth nightly.Histor ical Med ondansetron (ZOFRAN ODT) 4 mg disintegrating tablet Take 4 mg by mouth Twice daily as need ed.Historical Med oxyCODONE (ROXICODONE) 5 mg tablet Take 5 mg by mouth every 4 hours as needed.Historical Me d ranitidine (ZANTAC) 150 MG capsule Take 150 mg by mouth 4 times daily.Historical Med Ropinirole HCl (REQUIP XL) 6 MG TB24 Take 4.5 mg by mouth 4 times daily.Historical Med tizanidine (ZANAFLEX) 2 MG tablet Take 2 mg by mouth as needed. In severe momentsHistorical Med ALLERGIES Allergies Allergen Reactions Lorazepam Morphine Zolpidem FAMILY HISTORY Family History Problem Relation Age of Onset Diabetes Mother Arthritis Mother Heart disease Mother Kidney disease Mother of kidney failure at 55. Cancer Sister Lung cancer Father at the age of 42. Alcohol abuse Father SOCIAL HISTORY History Social History Marital Status: Spouse Name: N/A Number of Children: N/A Years of Education: N/A Social History Main Topics Smoking status: Never Smoker Smokeless tobacco: Never Used Alcohol Use: Yes Comment: OCCASIONAL Drug Use: No Sexual Activity: No Other Topics Concern None Social History Narrative REVIEW OF SYSTEMS A 12 system review of systems is otherwise negative except as noted in the HPI above. PHYSICAL EXAM VITAL SIGNS: (first vital signs):Temp: 35.9 C (96.6 F) Pulse: 76 Resp: 18 SpO2: 100 % B P: 123/68 mmHg Constitutional: Well developed, Well nourished, No acute distress, Non-toxic appearance. HENT: Normocephalic, Atraumatic, Bilateral external ears normal, Oral mucosa moist, can pusher ior pharynx no exudates, Nose normal. Neck-supple, nontender, no meningismus, No stridor. Eyes: PERRL, EOMI, Conjunctiva normal, No discharge. Respiratory: Breath sounds equal bilaterally, no adventitious sounds, No chest wall tender ness. Cardiovascular: Normal rate, normal S1, S2, no murmurs, rubs, or gallops GI: Abdomen soft, non-tender, non-distended, normal bowel sounds, no CVA tenderness : Musculoskeletal: Intact distal pulses, No edema, No tenderness, No cyanosis. Good range of motion in all major joints. No tenderness to palpation or major deformities noted. Back- No tenderness. Skin: Warm, Dry, No erythema, No rash or lesions. Lymphatic: Neurologic: Alert & oriented x 3, Cranial nerves II-XII intact, decreased strength and sen sation in the left leg that is chronic, otherwise normal sensation in the right lower extrem ity, there is tenderness to palpation along the proximal thigh on the right laterally up to the hip without any noted deformity Psychiatric: Affect normal, Judgment normal, Mood normal. Labs Reviewed - No data to display RADIOLOGY CT Results: Xr Lumbar Spine 2 Or 3 Vw 04/28/2015 XR LUMBAR SPINE 2 OR 3 VW. 04/28/2015 10:18 AM HISTORY: HIP PAIN . COMPARISO N: Lumbar spine x-ray 08/02/2014 FINDINGS: Levoconvex curvature of the lumbar spine centere d at L2 is again seen. Vertebral body alignment is otherwise maintained. There is diffuse degenerative disc disease, with decreased disc height at the level of L3-4 and L4-5 on the r ight. Vertebral body heights are maintained. Facet degenerative hypertrophy, greater in th e lower lumbar spine. Surgical clips seen in the right upper quadrant, suggestive of prior cholecystectomy. IMPRESSION - Degenerative disc disease and spondylotic change, with levoc onvex curvature centered at L2, without spondylolisthesis. Dictated and Signed by: Dhruv cui MD Electronically signed: 04/28/2015 11:31 AM Xr Hip Right 2 + Vw 04/28/2015 XR HIP RIGHT 2 + VW 04/28/2015 9:21 AM HISTORY: HIP PAIN. COMPARISON: None. F INDINGS: There are no acute osseous findings. Mild degenerative changes are present with ost eophytosis and subchondral sclerosis. Bone mineralization is normal. Visualized pelvic osseo us structures show no acute findings. There is left curvature of the lumbar spine along with spondylosis. Soft tissue structures are unremarkable. IMPRESSION - No acute findings. If s ymptoms persist or worsen, MRI can be considered for further evaluation. Dictated and Ivana d by: Carlos Rodriguez MD Electronically signed: 04/28/2015 9:37 AM ED COURSE & MEDICAL DECISION MAKING Pertinent Labs & Imaging studies reviewed. (See chart for details) Patient presents to the emergency department with frequent falls and worsening chronic righ t hip and low back pain. X-rays do not show any acute findings. I spoke with her Hospital so anirudhl worker in [place] and recommended expedited outpatient home health and OT follow up. She'll be discharged home and can continue to take home pain medication as prescribed. She s hould follow up with her primary care provider and outpatient social worker psychiatric. She should retu rn if new concerning symptoms. Last Set of Vital Signs: Temp: 35.9 C (96.6 F) Pulse: 76 Resp: 18 SpO2: 100 % BP: 123/6 8 mmHg FINAL IMPRESSION 1. Chronic hip pain, right 2. Chronic low back pain 3. Frequent falls PLAN Follow-up Information Follow up with Concepción Gallardo NP. Specialty: Family Nurse Practitioner Contact information: [address] [place] [id number] Discharge Medication List as of 04/28/2015 10:48 Jean-Paul Flowers MD 04/28/15 1316 document ed in this encounter Miscellaneous Notes ED Triage Notes - Cuauhtemoc Manuel, RN - 04/28/2015 8:25 AM PDTPatient presents to ER with right hip and leg pain, pt reported having multiple falls and have fallen yesterday. C MS is intact, no shortening to right leg, no bruise or redness noted. documented in this encounter Plan of Treatment +--------+---------+ + + + | Date | Type | Specialty | Care Team | Description | +--------+---------+ + + + | 06/18/ | Office | Pain Medicine | Denys Sibley, | | | 2019 | Visit | | DO [address] | | | | | | [place], [place] | | | | | | [address] | | | | | | | | +--------+---------+ + + + | 06/26/ | Office | Cardiology | Monserrat Weems | | 2019 | Visit | | [address] | | | | | | [address] | | | | | | [place] [address] | | | | | | [phone] | | | | | | | [...] | Junior, Rad Results In - 04/28/2015 11:34 AM PDT [...] | ---- | | | 04/28/2015 08:18 [facility] | | | Emergency -Right Hip to Toe 04/23/2015 10:50 [facility]. | | | [facility] Care 04/13/2015 | | | 07:46 [facility] Emergency | | | -Other chronic pain [...] | not stated as uncontrolled 04/10/2015 14:37 [facility] | | | Hospital Emergency -Surgical or [...] | | | | -Dehydration 04/09/2015 10:50 [facility] | | | Urgent Care -History of [...] as uncontrolled | | | 04/07/2015 07:45 [facility] | | | Urgent Care -Unspecified acquired [...] in stool 03/26/2015 | | | 07:15 [facility] Emergency | | | -Diabetes mellitus without [...] other | | | medications 03/07/2015 10:45 [facility] | | | Urgent Care -Loss of [...] of weight | | | 02/17/2015 09:15 [facility] | | | Urgent Care -Dysuria | [...] in | | | breast 02/14/2015 09:50 [facility] | | | Urgent Care -Other chronic [...] chronic pain | | | 02/11/2015 09:00 [facility] | | | Urgent Care -Loss of [...] ------ --------- 1 0 | | | [facility] 2 | | | 0 [facility] 15 | | | 0 [facility] 18 | | | 0 Total Note: Visits indicate total | | | known visits. [place] Dx are the number of primary diagnoses on | | | the [facility]'s non-emergent dx list. | | | | | | --- SYLVIE has no Care Guidelines for this patient. [place] | | | Prescription Review PDMP Report No PDMP report found. | | + + + + +---------+ + + | Performing | Address | City/State[facility] | Phone Number | | Organization [...]
--- OUTSIDE RECORDS SUMMARY | ~2020-05-30 | XMS | Encounter Summary ---
Demographics + + + | Address | [address] | | | [place] [address] | + + + | Home Phone [...] Providers + +------+ + | Care Electric Gas Appliances Demonstrator Name | Role | Phone | + +------+ + PCP | Unavailable | + +------+ + Reason for Visit + +--------+ + | Reason | Onset | Comments | | | Date | | + +--------+ + | Medication Problem | 11/01/ | | | | 2012 | | + +--------+ + Encounter Details +--------+ + + + + | Date | Type | Department | Care Team | Description | +--------+ + + + + | 11/01/ | Telephone | [facility] | Shay Waite | Medication Problem | | 2012 | | PHYSIATRY [address] | TMD [address] | | | | | [address] [facility] [address] | [address] [place], [place] | | | | | [place], [place] | [address] | | | | | [address] | | | | | | [phone] | | | +--------+ + + + [...] this encounter Miscellaneous Notes Addendum Note - Shay Waite MD - 11/03/2012 2:25 PM PST Addended by: Davon WAITE on: 11/03/2012 14:25 Modules accepted: Orders elephone Encoun ter - Shay Waite MD - 11/03/2012 2:11 PM PSTI can't imagine that her insurance won 't pay for Flexeril. It is not an expensive medication. I will place an order for it and w e'll see if it gets denied. 2:1 9 PM PSTTelephone Encounter - Jazzy Ibarra - 11/03/2012 12:39 PM PSTPatient confirmed ch anged appointment time. e lephone Encounter - Glory Toledo - 11/01/2012 11:31 AM PSTCall from patient stating the na me of muscle relaxer she was taking is Tizanidine. Pt states Flexeril works better for her b ut is not sure if insurance will cover it. Please advise and return call Electronically sign ed by Glory Toledo at 11/01/2012 11:33 AM PSTTelephone Encounter - Natty Santo - 10:31 AM PSTPatient called about medication wanting to know what one was that was t alked about. Patient was seen in the office this morning for an appointment with Dr Maliha duran. Please call patient. P STdocumented in this encounter Plan of Treatment +--------+---------+ + + + | Date | Type | Specialty | Care Team | Description | +--------+---------+ + + + | 06/18/ | Office | Pain Medicine | Denys Sibley, | | | 2019 | Visit | | DO [address] | | | | | | [place] | | | | | | [address] | | | | | | | | +--------+---------+ + + + | 06/26/ | Office | Cardiology | Monserrat Weems | | | 2019 | Visit | | [address] | | | | | | [address] | | | | | | [place] [address] | | | | | | [phone] | | | | | | | | +--------+---------+ + + + documented as of this encounter Visit Diagnoses + + | Diagnosis | + + | Back pain - Primary Backache, unspecified | + + documented in this encounter"
--- OUTSIDE RECORDS SUMMARY | ~2020-05-30 | XMS | Encounter Summary ---
Demographics + + + | Address | [address] | | | [place] [address] | + + + | Home Phone | | + + + | Preferred Language | Unknown | + + + | Marital Status | Single | + + + | Congregation Affiliation | NON | + + + | Race | White | + + + | Ethnic Group | Not or | + + + Author + + + | Author | [facility] | + + + | Organization | [facility] | + + + | Address | Unknown | + + + | Phone | Unavailable | + + + Support + + +---------+ + | Name | Relationship | Address | Phone | + + +---------+ + | Royce Menchaca | ECON | Unknown | | + + +---------+ + Care Team Providers + +------+ + | Care Wardrobe Manager Name | Role | Phone | + +------+ + | Miquel Calhoun MD | PCP | | + +------+ + Encounter Details +--------+ + + + + | Date | Type | Department | Care Team | Description | +--------+ + + + + | 11/29/ | Documentati | [facility] | Khushbu Cortez, | | | 2013 | on | [facility] | [employer] [place], [place] | | | | | [address] | [address] | | | | | [address] | | | | | | Riddhi, [address] [place] [address] | | | | | | [place], [place] | | | | | | [address] | | | | | | [phone] | | | +--------+ + + + [...]
--- OUTSIDE RECORDS SUMMARY | ~2020-05-30 | XMS | Encounter Summary ---
Demographics + + + | Address | [address] | | | [place] [address] | + + + | Home Phone | | + + + | Preferred Language | Unknown | + + + | Marital Status | Single | + + + | Jehovah'S Witness Affiliation | NON | + + + | Race | White | + + + | Ethnic Group | Not or | + + + Author + + + | Author | [facility] | + + + | Organization | [facility] | + + + | Address | Unknown | + + + | Phone | Unavailable | + + + Support + + +---------+ + | Name | Relationship | Address | Phone | + + +---------+ + | Royce Menchaca | ECON | Unknown | | + + +---------+ + Care Team Providers + +------+ + | Care Garden Consultant Name | Role | Phone | + +------+ + | Miquel Calhoun MD | PCP | | + +------+ + Encounter Details +--------+ + + + + | Date | Type | Department | Care Team | Description | +--------+ + + + + | 09/13/ | Telephone | [facility] | Khushbu Cortez, | | | 2012 | | [facility] | [place], [place] | | | | | [address] | [address] | | | | | [address] | | | | | | [place], [address] [place] [address] | | | | | | [place], [place] | | | | | | [address] | | | | | | [phone] | | | +--------+ + + + [...]
--- OUTSIDE RECORDS SUMMARY | ~2020-05-30 | XMS | Encounter Summary ---
Demographics + + + | Address | [address] | | | [place] [address] | + + + | Home Phone [...] Providers + +------+ + | Care City Designer Name | Role | Phone | [...] | | | | Chronic low | J Luis, | [address] | | | | | back pain | Shay Mukherjee MD | [place], | | | | | Lumbar | [address] | [place] | | | | | radiculopath | [place] | [address] | | | | | y | [place], [place] | Phone: | | | | | Procedures | [address] | [phone] | | | | | MRI Lumbar | Phone: | Fax: | | | | | Spine wo | [phone] | [phone] | | | | | Contrast | Fax: | | | | | | MRI | [phone] | | +--------+--------+ + + + + [...] | | | | Chronic low | J Luis, | [address] | | | | | back pain | Shay Mukherjee MD | [place], | | | | | Lumbar | [address] | [place] | | | | | radiculopath | [place] | [address] | | | | | y | [place] | Phone: | | | | | Procedures | [address] | [phone] | | | | | MRI Lumbar | Phone: | Fax: | | | | | Spine wo | [phone] | [phone] | | | | | Contrast | Fax: | | | | | | MRI | [phone] | | +--------+--------+ + + + + Encounter Details +--------+ + + + + | Date | Type | Department | Care Team | Description | +--------+ + + + + | 04/12/ | Hospital | [facility] | Shay Dietz | Chronic low back | | 2013 | Encounter | MED CTR MRI [address] Mukherjee MD [address] | pain; Lumbar | | | | [address] [place], | [place] | radiculopathy | | | | [place] [address] | [address] | | | | | [phone] | | | +--------+ + + + [...] documented as of this encounter Miscellaneous Notes Miscellaneous - [facility] - 04/26/2014 12:00 AM PDT documented in this encounter Plan of Treatment +--------+---------+ + + + | Date | Type | Specialty | Care Team | Description | +--------+---------+ + + + | 06/18/ | Office | Pain Medicine | Denys Sibley, | | | 2019 | Visit | | [address] | | | | | | [place] | | | | | | [address] | | | | | | | | +--------+---------+ + + + | 06/26/ | Office | Cardiology | Monserrat Weems | | | 2019 | Visit | | [address] | | | | | | [address] | | | | | | [place] [address] | | | | | | [phone] | | | | | | | [...] + | MISCELLANEOUS LAB | | | [phone] | + +---------+ + + | MISCELANIOUS LAB | | | [phone] | + +---------+ + + documented in this encounter Visit Diagnoses + + | Diagnosis | + + | Chronic low back pain Lumbago | + + | Lumbar radiculopathy Thoracic or lumbosacral neuritis or radiculitis, unspecified | + + documented in this encounter"
--- OUTSIDE RECORDS SUMMARY | ~2020-05-30 | XMS | Encounter Summary ---
Demographics + + + | Address | [address] | | | [place] [address] | + + + | Home Phone [...] Team Providers + +------+ + | Care Trash Collector Truck Driver Name | Role | Phone | + +------+ + | Romy De La Paz MD | PCP | | + +------+ + Reason for Visit + +--------+ + | Reason | Onset | Comments | | | Date | | + +--------+ + | Procedure | 07/20/ | Question | | | 2019 | | + +--------+ + Encounter Details +--------+ + + + + | Date | Type | Department | Care Team | Description | +--------+ + + + + | 07/20/ | Telephone | [facility] | Maykel Hutchins MD | Procedure (Question) | | 2019 | | [facility] | [address] | | | | | ORTHOPEDIC SPINE | [place], [place] | | | | | [address] | [address] | | | | | [place] | | | | | | [address] | | | | | | [phone] | | | +--------+ + + + [...] this encounter Miscellaneous Notes Telephone Encounter - Therese Fernandez CMA - 07/20/2019 9:59 AM PDTCalled patient and she stated that her questions were already addressed by Niki Pizarro RN. She gave me permission to dismiss this message. A M PDTdocumented in this encounter Plan [...] [place] | | | | | | [id number] | | | | | | | | +--------+---------+ + + + | 06/26/ | Office | Cardiology | Monserrat Weems | | | 2019 | Visit | | [address] | | | | | | [address] | | | | | | [place] [address] | | | | | | [phone] | | | | | | | | +--------+---------+ + + + documented as of this encounter Visit Diagnoses Not on filedocumented in this encounter"
--- OUTSIDE RECORDS SUMMARY | ~2020-05-30 | XMS | Encounter Summary ---
Demographics + + + | Address | [address] | | | [place] [address] | + + + | Home Phone | | + + + | Preferred Language | Unknown | + + + | Marital Status | Single | + + + | Confucianist Affiliation | NON | + + + | Race | White | + + + | Ethnic Group | Not or | + + + Author + + + | Author | [facility] | + + + | Organization | [facility] | + + + | Address | Unknown | + + + | Phone | Unavailable | + + + Support + + +---------+ + | Name | Relationship | Address | Phone | + + +---------+ + | Royce Menchaca | ECON | Unknown | | + + +---------+ + Care Team Providers + +------+ + | Care Charging Operator Name | Role | Phone | [...] Management | | 2016 | | at [facility] [address] | [address] | (follow up BPs) | | | | [facility] | [address] [place], | | | | | Health and Healing, | [place] [address] | | | | | Building [address] | [phone] | | | | | Floor [place], [place] | | | | | | [address] | | | | | | [phone] | | | +--------+ + + + [...]
--- OUTSIDE RECORDS SUMMARY | ~2020-05-30 | XMS | Encounter Summary ---
Demographics + + + | Address | [address] | | | [place] [address] | + + + | Home Phone [...] Team Providers + +------+ + | Care Paid Search Manager Name | Role | Phone | [...] + + | 05/01/ | Office | [facility] | Shay Dietz | BACK PAIN, LUMBAR | | 2012 | Visit | PHYSIATRY [address] | MD Lonny [address] | (Primary Dx); DISC | | | | [address] | [place] | DISEASE, LUMBAR; | | | | [place] | [address] | OSTEOARTHRITIS, | | | | [address] | | LUMBOSACRAL SPINE | | | | [phone] | | | +--------+---------+ + + + [...] - 05/01/2013 11:20 AM [facility] minutes before your scheduled procedure [...] our off ice. Please also provide a milk pickup driver to take you home on the [...] the most recent injection was performed by me on 11/09/2012. She reports good relief with [...] a letter to the caregivers at the community hospital to allow them to give her a slightly increased dose of the narcotic until the injection starts working. documented in this encounter Plan of Treatment +--------+---------+ + + + | Date | Type | Specialty | Care Team | Description | +--------+---------+ + + + | 06/18/ | Office | Pain Medicine | Toñito Denys Kadi, | | | 2019 | Visit | | DO [address] | | | | | | [place] | | | | | | [address] | | | | | | | | +--------+---------+ + + + | 06/26/ | Office | Cardiology | Monserrat Weems | | | 2019 | Visit | | [address] | | | | | | [address] | | | | | | [place] [address] | | | | | | [phone] | | | | | | | [...]
--- OUTSIDE RECORDS SUMMARY | ~2020-05-30 | XMS | Encounter Summary ---
Demographics + + + | Address | [address] | | | [place] [address] | + + + | Home Phone | | + + + | Preferred Language | Unknown | + + + | Marital Status | Single | + + + | Shinto Affiliation | NON | + + + [...] Team Providers + +------+ + | Care Track Repair Laborer Name | Role | Phone | [...] as of this encounter Discharge Summaries Interface, [employer] - 08/03/2006 2:03 AM PDT [id number]/ [id number] ROSANA Suarez [id number] Admission Date: 06/26/2006 Discharge Date: 06/30/2006 Staff [...] up with her primary care doctor in [place] to get lab followup within the next [...] psychiatrist, Dr. Pham; his phone number is [phone]. She is to make a followup appointment with him within the next week. The patient is also to follow up with Dr. Kel Young, he is located as well in [place], [place], and is associated with [facility]. She is to follow up with him for repeat electrolytes including potassium, magnesium, and phosphorus within the next several days. Monroe Disla M.D. Sherita Madrid M.D., M.P.H. / [id number] / [id number] / [id number] / [id number] cc: * Dr. Pham [facility] FAX: [phone] Kel Young M.D. Electronically signed by Sherita Madrid 08-02-2006 11:01:13 AM documented i n this encounter Plan of Treatment Not on filedocumented as of this encounter Visit Diagnoses Not on filedocumented in this encounter"
--- OUTSIDE RECORDS SUMMARY | ~2020-05-30 | XMS | Encounter Summary ---
Demographics + + + | Address | [address] | | | [place] [address] | + + + | Home Phone | | + + + | Preferred Language | Unknown | + + + | Marital Status | | + + + | Hoahaoism Affiliation | 1013 | + + + | Race | Unknown | + + + | Ethnic Group | Unknown | + + + Author + + + | Author | [facility] | | | and [place] | + + + | Organization | [facility] | | | [...] Providers + +------+ + | Care Mail Service Coordinator Name | Role | Phone | + +------+ + PCP | Unavailable | + +------+ + Encounter Details +--------+ + + + + | Date | Type | Department | Care Team | Description | +--------+ + + + + | 10/06/ | Hospital | [facility] | Robert Perales | | | 2010 | Encounter | MED CTR SLEEP | MD Miguel [address] | | | | | [address] | [address] [facility] | | | | | [place], [place] | [place] [address] | | | | | [address] | [phone] | | | | | [phone] | | | +--------+ + + + [...] documented as of this encounter Miscellaneous Notes Sleep Disorders - Robert Perales Jr., MD - 10/06/2011 10:57 AM PSTDATE: 10/06/2011 cc: [facility] Sleep Center Robert Perales Jr., MD, [facility] Sleep Center Monroe Felder MD CLINICAL INFORMATION: This is a 66-year-old female with complaints of severe insomnia. She also has h istory of anxiety, depression, and possibly posttraumatic stress disorder. 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 She has an average b edtime of about 8 in the evening and awake time of about 2 in the morning. RESULTS: Actigraphy monitoring was performed from 09/22/2011 through 10/06/2011. There appears to be a significant discrepancy in sleep-wake schedule noted on actigraphy mo nitoring c ompared with her sleep diary. It appears that the time stamp on the actigraphy m onitor was improperly set. The actigraphy monitor suggests a bedtime of about 12 p.m. Her s leep diary suggests a bedtime a bout 8 p.m. In reviewing the actigraphy monitor of the time she does sleep, however, she appears to hav e an avera ge sleep efficiency of about 86%. She is averaging on the algorithm of 310 minut es of sleep a night. Other comments cannot be made because of the questionable accuracy of the time stamp. INTERPRETATION THIS IS FELT TO BE FAIRLY INVALID ACTIGRAPHY MONITOR BECAUSE OF A TIME STAMP ISSUE. It does appear to demonstrate fairly consolidated sleep of about 5 hours per 24. Sleep diar y suggests that bedtime is actually 4 hours earlier than what the actigraphy suggested. ADDENDUM: There will be no charge for the actigraphy monitor. Robert Perales Jr., MD, [facility] Diplomate [place] Board of Internal Medicine Diplomate in Sleep Medicine Personal Lines Agent, [facility] Clinical Hoop Punch And Coiler Operator Helper Ilene tao of Medicine, [facility] JOB #: [id number] EXT JOB #:[id number] EDITED: 11/11/2011 11:51 <Electronically Signed by Robert Perales MD> 11/15/11 1610 Sleep Disorders - Robert Perales Jr., MD - 10/06/2011 10:57 AM PSTDATE: 10/06/2011 cc: [facility] Sleep Center Robert Perales Jr., MD, [facility] Sleep Center Monroe Felder MD DIAGNOSTIC NOCTURNAL POLYSOMNOGRAM CLINICAL INFORMATION: This is a 66-year-old female who has problems with severe insomnia. T he patient also has severe sleep fragmentation. She has a history of anxiety/depression and possibly posttrauma tic stress disorder. Current study is done to exclude coexisting sever e periodic limb movements of sl eep or obstructive apnea. The patient is on Requip for restless leg syndrome. FINDINGS: Prior to the study the patient scored 13 points on the [place] Sleepiness Scale, which endo rses a significant degree of recognized excessive daytime sleepiness. The patient reported this to be a worse than usual night's sleep. SLEEP ARCHITECTURE: Lights out was recorded at 9:21 p.m. Lights on was recorded at 4:26 a.m . The latency to sleep onset was actually normal at 7.5 minutes. The patient slept for only 1 64 minutes out of 425 minutes of study time. The sleep efficiency was markedly reduced at 3 8.6%. Sleep maintena nce was low at 44.3%. The amount of N1 sleep was low at 1.5% of the evening. The amount of N2 sleep was normal at 26.5% of the evening. The amount of N3 sleep was normal at 12.8% of the evening. The amoun t of rapid eye movem ent sleep was reduced at 3.5% of the evening. The latency to rapid eye movement sleep was normal at 9 4.5 minutes. The patient spent 93.4% of the evening in the right lateral decubitus position. She spent 3 .6% of the evening in supine position. Sleep was mildly fragmented. The arousal index was 11.3. CARDIOPULMONARY MONITORING: Heart rate averaged in the high 80s and fundamentally was a sin us rhythm. In the course of the evening there were no apneas. There were no hypopneas. There were 10 v katy minor respiratory effort related arousals. The respiratory disturbance index is normal at 3.7. The events a ll occurred in the supine position. The respiratory events did not occ asion significant sleep fragmen tation. The respiratory arousal index was 3.7. Significant oxygen desaturation did not occur. The pamela desaturation of 83% was reported a wake and w as movement artifact. LIMB MOVEMENT MONITORING: There were no periodic limb movements of sleep. INTERPRETATION This is a markedly abnormal nocturnal polysomnogram secondary to: 1. The very low sleep ef ficiency is quite consistent with a generic diagnosis of insomnia. 2. There is no convincin g evidence to suggest a significant sleep related breathing disorder. Periodi c limb moveme nts of sleep were also not seen on the current study. Robert Perales Jr., MD, FAASM Diplomate [place] Board of Internal Medicine Diplomate in Sleep Medicine Personal Lines Agent, [facility] Clinical Hoop Punch And Coiler Operator Helper [facility], [facility] JOB #: [id number] EXT JOB #:[id number] <Electronicall y Signed by Robert Perales MD> 10/14/11 1514 documented in this encounter Plan of Treatment +--------+---------+ + + + | Date | Type | Specialty | Care Team | Description | +--------+---------+ + + + | 06/18/ | Office | Pain Medicine | Denys Sibley, | | | 2019 | Visit | | DO [address] | | | | | | [place] | | | | | | [address] | | | | | | | | +--------+---------+ + + + | 06/26/ | Office | Cardiology | Monserrat Weems | | | 2019 | Visit | | [address] | | | | | | [address] | | | | | | [place] [address] | | | | | | [phone] | | | | | | | | +--------+---------+ + + + documented as of this encounter Visit Diagnoses Not on filedocumented in this encounter"
--- OUTSIDE RECORDS SUMMARY | ~2020-05-30 | XMS | Encounter Summary ---
Demographics + + + | Address | [address] | | | [place] [address] | + + + | Home Phone [...] Team Providers + +------+ + | Care Fastener Technologist Name | Role | Phone | + +------+ + | Miquel Calhoun MD | PCP | | + +------+ + Reason for Visit + +--------+ + | Reason | Onset | Comments | | | Date | | + +--------+ + | Appointment | 09/04/ | | | | 2012 | | + +--------+ + Encounter Details +--------+ + + + + | Date | Type | Department | Care Team | Description | +--------+ + + + + | 09/04/ | Telephone | [facility] | Shay Dietz | Appointment | | 2012 | | PHYSIATRY [address] | T[address] | | | | | [address] | [place] | | | | | [place] | [address] | | | | | [address] | | | | | | [phone] | | | +--------+ + + + [...] this encounter Miscellaneous Notes Telephone Encounter - Natty Santo 09/04/2013 10:48 AM PSTPatient would like to ge t rescheduled for MBB. Please call patient to schedule. documented in this encounter Plan of Treatment +--------+---------+ + + + | Date | Type | Specialty | Care Team | Description | +--------+---------+ + + + | 06/18/ | Office | Pain Medicine | Denys Sibley, | | | 2019 | Visit | | DO [address] | | | | | | [place] | | | | | | [id number] | | | | | | | | +--------+---------+ + + + | 06/26/ | Office | Cardiology | Monserrat Weems | | | 2019 | Visit | | [address] | | | | | | [address] | | | | | | [place] [address] | | | | | | [phone] | | | | | | | | +--------+---------+ + + + documented as of this encounter Visit Diagnoses Not on filedocumented in this encounter"
--- OUTSIDE RECORDS SUMMARY | ~2020-05-30 | XMS | Encounter Summary ---
Demographics + + + | Address | [address] | | | [place] [address] | + + + | Home Phone [...] Providers + +------+ + | Care Outside Dealer Sales Representative Name | Role | Phone | + +------+ + | Miquel Calhoun MD | PCP | | + +------+ + Encounter Details +--------+ + + + + | Date | Type | Department | Care Team | Description | +--------+ + + + + | 05/01/ | Hospital | [facility] | Shay Dietz | | | 2013 | Encounter | MED CTR XRAY [address] | | | | | [place] | [address] [place], [place] | | | | | [place] [address] | [address] | | | | | [phone] | | | +--------+ + + + [...] | | | | | [place] | | | | | | [address] | | | | | | | | +--------+---------+ + + + | 06/26/ | Office | Cardiology | Monserrat We[facility] | | | 2019 | Visit | | [address] | | | | | | [address] | | | | | | [place] [address] | | | | | | [phone] | | | | | | | [...] Performed At | + + + | [facility] | [place] | | Department [address] [facility] [place] | [facility] | | [ rep [address]] [ rep [facility] | | [facility]] Signed | - IMAGING | | | | | Patient Name: ISABELALEXANDRELEIGHANNKORI Erick | | | Physician: OMID : [id number] Age: 67 Sex: F Unit | | | #: [id number] Exam Date: 05/01/13 Location: | | | IMG.INV Report #: [id number] Page: | | | %(RAD)RES..mtdd.print.filter("pg") of %(RAD) | | | RES..mtdd.print.filter("tpg") | | | | | | Accession Number: [id number] | | | PROCEDURE NOTE LUMBAR FACET [...] Transcribed | | | Date/Time: 05/09/2013 18:53 Brown Sourer: | | | <<Signature on File>> | | | Shay Mukherjee | | | MD J [id number]/15/132101 <Electronically signed by Shay Mukherjee | | | J Luis SALGADO> Shay Dietz MD 05/09/13 1813 | | | Brown Sourer: BucketFeet Vdlptsmgadvdh88/10/13 1212 | | | | | + + + + + + + + | Performing | Address | City/State/Zipcode | Phone Number | | Organization | | | | + + + + + | [facility] | [address] | [place] | [phone] | | [facility] | | [address] | | | - IMAGING | | | | + + + + + documented in this encounter Visit Diagnoses Not on filedocumented in this encounter
--- OUTSIDE RECORDS SUMMARY | ~2020-05-30 | XMS | Encounter Summary ---
Demographics + + + | Address | [address] | | | [place] [address] | + + + | Home Phone [...] Author + + + | Author | [facility] | + + + | Organization | [facility] | + + + | Address | Unknown | + + + | Phone | Unavailable | + + + Support + + +---------+ + | Name | Relationship | Address | Phone | + + +---------+ + | Royce Menchaca | ECON | Unknown | | + + +---------+ + Care Team Providers + +------+ + | Care Out Patient Therapist Name | Role | Phone | + [...] | | 2015 | Encounter | at [facility] [address] | [address] | | | | | [facility] for | [address] [place], | | | | | [facility] and He[facility], | [place] [address] | | | | | [facility] | [phone] | | | | | Floor [place], [place] | | | | | | [address] | | | | | | [phone] | | | +--------+ + + + [...]
--- OUTSIDE RECORDS SUMMARY | ~2020-05-30 | XMS | Encounter Summary ---
Demographics + + + | Address | [address] | | | [place] [address] | + + + | Home Phone | | + + + | Preferred Language | Unknown | + + + | Marital Status | Single | + + + | Hindu Affiliation | NON | + + + | Race | White | + + + | Ethnic Group | Not or | + + + Author + + + | Author | [facility] | + + + | Organization | [facility] | + + + | Address | Unknown | + + + | Phone | Unavailable | + + + Support + + +---------+ + | Name | Relationship | Address | Phone | + + +---------+ + | Royce Menchaca | ECON | Unknown | | + + +---------+ + Care Team Providers + +------+ + | Care Operations Supervisor 2Nd Shift Name | Role | Phone | + [...] [address] Andrews | | | | | [place], [place] | [place], [place] | | | | | [address] | [address] | | | | | [phone] | [phone] | | | | | | | [...] + + + + + | [facility] DEPARTMENT OF | [address] | [place] [address] | | | PATHOLOGY | [address] | | | + + + + + | [facility] DEPARTMENT OF | [address] | [place] [address] | | | PATHOLOGY | [address] [...] | + + + + + | [facility] | [facility] | [place] [address] | | | PATHOLOGY | [address] | | | + + + + + | [facility] | [address] [place] [address] | [place] [address] | | | PATHOLOGY | [address] [...] + + + + + | [facility] DEPARTMENT OF | [address] | [place] [address] | | | PATHOLOGY | [address] | | | + + + + + | [facility] DEPARTMENT OF | [address] | [place] [address] | | | PATHOLOGY | [address] [...] DEPARTMENT OF | [address] | [place] [address] | | | PATHOLOGY | [address] | | | + + + + + | [facility] DEPARTMENT OF | [address] | [place] [address] | | | PATHOLOGY | [address] [...] + + + + + | [facility] DEPARTMENT OF | [address] | [place] [address] | | | PATHOLOGY | [address] | | | + + + + + | [facility] DEPARTMENT OF | [address] | [place] [address] | | | PATHOLOGY | [address] | | | + + + + + MAGNESIUM, PLASMA (06/30/2006 7:00 AM PDT) + +-------+ + + + | Component | Value | Ref Range | Performed | Pathologist | | | | | At | Signature | + +-------+ + + + | MAGNESIUM,P | 2.3 | 1.8 - 2.5 mg/dL | [facility] | | | LASMA | | [...] + + + + + | [facility] DEPARTMENT OF | [address] | [place] [address] | | | PATHOLOGY | [address] | | | + + + + + | [facility] DEPARTMENT OF | [address] | [place] [address] | | | PATHOLOGY | [address] [...] DEPARTMENT OF | [address] | [place] [address] | | | PATHOLOGY | [address] | | | + + + + + | [facility] DEPARTMENT OF | [address] | [place] [address] | | | PATHOLOGY | [address] [...] DEPARTMENT OF | [address] | [place] [address] | | | PATHOLOGY | [address] | | | + + + + + | [facility] DEPARTMENT OF | [address] | [place] [address] | | | PATHOLOGY | [address] [...] + + + + + | [facility] DEPARTMENT OF | [address] | [place] [address] | | | PATHOLOGY | [address] | | | + + + + + | [facility] DEPARTMENT OF | [address] | [place] [address] | | | PATHOLOGY | [address] [...] + + + + + | [facility] DEPARTMENT OF | [address] | [place] [address] | | | PATHOLOGY | [address] | | | + + + + + | [facility] DEPARTMENT OF | [facility] | [place] [address] | | | PATHOLOGY | [address] [...] DEPARTMENT OF | [address] | [place] [address] | | | PATHOLOGY | [address] | | | + + + + + | [facility] DEPARTMENT OF | [address] | [place] [address] | | | PATHOLOGY | [address] | | | + + + + + PHOSPHORUS QUANT, URINE (06/30/2006 4:45 AM PDT) + +-------+ + + + | Component | Value | Ref Range | Performed | Pathologist | | | | | At | Signature | + +-------+ + + + | PHOSPHORUS | 28.8 | mg/dL | [facility] | | | CONC UR | | [...] + + + + + | [facility] DEPARTMENT OF | [address] | [place] [address] | | | PATHOLOGY | [address] | | | + + + + + | [facility] DEPARTMENT OF | [address] | [place] [address] | | | PATHOLOGY | [address] [...] | + + + + + | [facility] | [address] | [place] [address] | | | PATHOLOGY | [address] | | | + + + + + | [facility] | [address] [facility] | [place] [address] | | | PATHOLOGY | [address] [...] DEPARTMENT OF | [address] | [place] [address] | | | PATHOLOGY | [address] | | | + + + + + | [facility] DEPARTMENT OF | [address] | [place] [address] | | | PATHOLOGY | [address] [...] + + + + + | [facility] DEPARTMENT | [address] [facility] | [place] [address] | | | PATHOLOGY | [address] | | | + + + + + | [facility] DEPARTMENT | [facility] | [place] [address] | | | PATHOLOGY | [address] [...] [facility] | [address] | [place], [place] | | | [facility] | | [address] | | + + + + + [...] | + + + + + | [facility] | [address] | [place] [address] | | | PATHOLOGY | [address] | | | + + + + + | [facility] | [address] [place] [address] [address] | [place] [address] | | | PATHOLOGY | [address] [...] + + + + + | [facility] DEPARTMENT | [address] [facility] | [place] [address] | | | PATHOLOGY | [address] | | | + + + + + | [facility] | [address] [facility] | [place] [address] | | | PATHOLOGY | [address] [...] [facility] | [address] | [place], [place] | | | [facility] | | [address] | | + + + + + [...] | | | | | performed at [facility] | | | | | | [facility] | | | | | | Laboratory. | | | | + + + + + + + + | Specimen | + + | | + + + + + + + | Performing | Address | City/State/Zipcode | Phone Number | | Organization | | | | + + + + + | [facility] | [address] | [place] [address] | | | LAB-MICRO | | | [...] + + + + + | [facility] DEPARTMENT OF | [address] [facility] | [place] [address] | | | PATHOLOGY | [address] | | | + + + + + | [facility] DEPARTMENT OF | [address] [facility] [address] [address] | [place] [address] | | | PATHOLOGY | [address] [...] + | [facility] DEPARTMENT OF | [address] | [place] [address] | | | PATHOLOGY | [address] | | | + + + + + | [facility] DEPARTMENT OF | [address] | [place] [address] | | | PATHOLOGY | [address] [...] OF | [address] | [place] [address] | | | PATHOLOGY | [address] | | | + + + + + | [facility] DEPARTMENT OF | [address] | [place] [address] | | | PATHOLOGY | [address] | | | + + + + + LIVER SET (06/29/2006 6:55 AM PDT) + +---------+ + + + | Component | Value | Ref Range | Performed | Pathologist | | | | | At | Signature | + +---------+ + + + | ALBUMIN, | 3.1 (L) | 3.5 - 4.7 g/dL | [facility] | | | PLASMA | | [...] DEPARTMENT OF | [address] | [place] [address] | | | PATHOLOGY | [address] | | | + + + + + | [facility] DEPARTMENT OF | [address] | [place] [address] | | | PATHOLOGY | [address] | | | + + + + + MAGNESIUM, PLASMA (06/29/2006 6:55 AM PDT) + +-------+ + + + | Component | Value | Ref Range | Performed | Pathologist | | | | | At | Signature | + +-------+ + + + | MAGNESIUM,P | 2.1 | 1.8 - 2.5 mg/dL | [facility] | | | LASMA | | [...] | + + + + + | [facility] | [address] | [place] [address] | | | PATHOLOGY | [address] | | | + + + + + | [facility] | [address] | [place] [address] | | | PATHOLOGY | [address] [...] DEPARTMENT OF | [address] | [place] [address] | | | PATHOLOGY | [address] | | | + + + + + | [facility] DEPARTMENT OF | [address] | [place] [address] | | | PATHOLOGY | [address] [...] + + + + + | [facility] DEPARTMENT OF | [address] [facility] | [place] [address] | | | PATHOLOGY | [address] | | | + + + + + | [facility] DEPARTMENT OF | [address] | [place] [address] | | | PATHOLOGY | [address] [...] + + + + + | [facility] DEPARTMENT OF | [address] | [place] [address] | | | PATHOLOGY | [address] | | | + + + + + | [facility] DEPARTMENT OF | [address] | [place] [address] | | | PATHOLOGY | [address] [...] + + | [facility] DEPARTMENT OF | [address] | [place] [address] | | | PATHOLOGY | [address] | | | + + + + + | [facility] DEPARTMENT OF | [address] | [place] [address] | | | PATHOLOGY | [address] | | | + + + + + MAGNESIUM, PLASMA (06/28/2006 7:40 PM PDT) + +-------+ + + + | Component | Value | Ref Range | Performed | Pathologist | | | | | At | Signature | + +-------+ + + + | MAGNESIUM,P | 2.2 | 1.8 - 2.5 mg/dL | [facility] | | | [facility] | | | [...] + + + + + | [facility] DEPARTMENT | [facility] | [place] [address] | | | PATHOLOGY | [address] | | | + + + + + | [facility] | [address] [place] [address] | [place] [address] | | | PATHOLOGY | [address] [...] + + + + + | [facility] DEPARTMENT OF | [address] [facility] | [place] [address] | | | PATHOLOGY | [address] | | | + + + + + | [facility] DEPARTMENT OF | [address] | [place] [address] | | | PATHOLOGY | [address] [...] + + + + + | [facility] DEPARTMENT OF | [address] | [place] [address] | | | PATHOLOGY | [address] | | | + + + + + | [facility] DEPARTMENT OF | [address] | [place] [address] | | | PATHOLOGY | [address] [...] (H) | 65 - 110 mg/dL | [facility] | | | PLASMA | | [...] | + + + + + | [facility] | [facility] | [place] [address] | | | PATHOLOGY | [address] | | | + + + + + | [facility] DEPARTMENT OF | [address] | [place] [address] | | | PATHOLOGY | [address] [...] + | [facility] DEPARTMENT OF | [address] | [place] [address] | | | PATHOLOGY | [address] | | | + + + + + | [facility] DEPARTMENT OF | [address] | [place] [address] | | | PATHOLOGY | [address] [...] | + + + + + | [facility] | [address] | [place] [address] | | | PATHOLOGY | [address] | | | + + + + + | [facility] | [address] | [place] [address] | | | PATHOLOGY | [address] [...] + + + + + | [facility] DEPARTMENT OF | [address] | [place] [address] | | | PATHOLOGY | [address] | | | + + + + + | [facility] DEPARTMENT OF | [address] | [place] [address] | | | PATHOLOGY | [address] [...] | + + + + + | [facility] | [facility] | [place] [address] | | | PATHOLOGY | [address] | | | + + + + + | [facility] | [facility] | [place] [address] | | | PATHOLOGY | [address] [...] + + + + + | [facility] DEPARTMENT OF | [address] | [place] [address] | | | PATHOLOGY | [address] | | | + + + + + | [facility] DEPARTMENT OF | [address] [facility] [address] | [place] [address] | | | PATHOLOGY | [address] [...] + + + + + | [facility] DEPARTMENT OF | [address] | [place] [address] | | | PATHOLOGY | [address] | | | + + + + + | [facility] DEPARTMENT OF | [address] | [place] [address] | | | PATHOLOGY | [address] [...] | + + + + + | [facility] | [address] | [place] [address] | | | PATHOLOGY | [address] | | | + + + + + | [facility] | [address] | [place] [address] | | | PATHOLOGY | [address] [...] + + + | Test performed at [facility] | | + + + + + + + + | Performing | Address | City/State/Zipcode | Phone Number | | Organization | | | | + + + + + | [facility] | [address] | [place] [address] | | | LABORATORY | | | [...] + + + | Test performed at [facility] | | + + + + + + + + | Performing | Address | City/State/Zipcode | Phone Number | | Organization | | | | + + + + + | [facility] | [address] | [place] [address] | | | LABORATORY | | | | + + + + + IOD-ORGANIC BASE CONFIRM (06/27/2006 11:55 AM PDT) + + | Specimen | + + | | + + + + + | Narrative | Performed At | + + + | Test performed at [facility] | [facility] | | | DEPARTMENT OF | | | PATHOLOGY | + + + + + + + + | Performing | Address | City/State/Zipcode | Phone Number | | Organization | | | | + + + + + | [facility] | [address] | [place] [address] | | | PATHOLOGY | [address] | | | + + + + + | [facility] DEPARTMENT OF | [address] | [place] [address] | | | PATHOLOGY | [address] [...] | | | | | performed at [facility] | | | | | | [facility] | | | | | | Laboratory. | | | | + + + + + + + + | Specimen | + + | | + + + + + + + | Performing | Address | City/State/Zipcode | Phone Number | | Organization | | | | + + + + + | [facility] | [address] | [place] [address] | | | LAB-MICRO | | | [...] | uIU/ml | | | | | [facility] | | | | | | Laboratories. | | | | + + + + + + + + | Specimen | + + | | + + + + + + + | Performing | Address | City/State/Zipcode | Phone Number | | Organization | | | | + + + + + | [facility] | [address] | [place] [address] | | | LABORATORY | | | [...] | + + + + + | [facility] | [facility] | [place] [address] | | | PATHOLOGY | [address] | | | + + + + + | [facility] DEPARTMENT OF | [facility] | [place] [address] | | | PATHOLOGY | [address] [...] | + + + + + | [facility] | [address] | [place] [address] | | | PATHOLOGY | [address] | | | + + + + + | [facility] | [address] [facility] [address] | [place] [address] | | | PATHOLOGY | [address] [...] + + + + + | [facility] DEPARTMENT OF | [address] | [place] [address] | | | PATHOLOGY | [address] | | | + + + + + | [facility] DEPARTMENT OF | [address] [facility] | [place] [address] | | | PATHOLOGY | [address] [...] + + + + + | [facility] DEPARTMENT OF | [address] [facility] | [place] [address] | | | PATHOLOGY | [address] | | | + + + + + | [facility] DEPARTMENT OF | [facility] | [place] [address] | | | PATHOLOGY | [address] [...] | + + + + + | [facility] | [address] | [place] [address] | | | PATHOLOGY | [address] | | | + + + + + | [facility] | [address] | [place] [address] | | | PATHOLOGY | [address] [...] + + + + + | [facility] DEPARTMENT OF | [address] [facility] [address] | [place] [address] | | | PATHOLOGY | [address] | | | + + + + + | [facility] DEPARTMENT OF | [address] [facility] [address] | [place] [address] | | | PATHOLOGY | [address] [...] + + | [facility] DEPARTMENT OF | [facility] | [place] [address] | | | PATHOLOGY | [address] | | | + + + + + | [facility] DEPARTMENT OF | [facility] | [place] [address] | | | PATHOLOGY | [address] [...] | | | | | performed at [facility] | | | | | | [facility] | | | | | | Laboratory. | | | | + + + + + + + + | Specimen | + + | | + + + + + + + | Performing | Address | City/State/Zipcode | Phone Number | | Organization | | | | + + + + + | [facility] | [address] | [place] [address] | | | LAB-MICRO | | | [...] | | | | | performed at [facility] | | | | | | [facility] | | | | | | Laboratory. | | | | + + + + + + + + | Specimen | + + | | + + + + + + + | Performing | Address | City/State/Zipcode | Phone Number | | Organization | | | | + + + + + | [facility] | [address] | [place] [address] | | | LAB-MICRO | | | [...] + + | [facility] DEPARTMENT OF | [address] [facility] [address] | [place] [address] | | | PATHOLOGY | [address] | | | + + + + + | [facility] DEPARTMENT OF | [address] [facility] [address] | [place] [address] | | | PATHOLOGY | [address] [...] | + + + + + | [facility] | [address] | [place] [address] | | | LABORATORY | | | [...] | | | | QUAL, SERUM | [facility] | | | | | | Laboratories. | | | | + + + + + + + + | Specimen | + + | | + + + + + + + | Performing | Address | City/State/Zipcode | Phone Number | | Organization | | | | + + + + + | [facility] | [address] | [place] [address] | | | LABORATORY | | | [...] + + + | [facility] | [address] | [place] [address] | | | LABORATORY | | | [...] | | | | | performed at [facility] | | | | | | [facility] | | | | | | Laboratory. | | | | + + + + + + + + | Specimen | + + | | + + + + + + + | Performing | Address | City/State/Zipcode | Phone Number | | Organization | | | | + + + + + | [facility] | [address] | [place] [address] | | | LAB-MICRO | | | [...] + + + + + | [facility] DEPARTMENT | [address] [facility] | [place] [address] | | | PATHOLOGY | [address] | | | + + + + + | [facility] | [address] [place] [address] | [place] [address] | | | PATHOLOGY | [address] [...] DEPARTMENT OF | [address] | [place] [address] | | | PATHOLOGY | [address] | | | + + + + + | [facility] DEPARTMENT OF | [address] | [place] [address] | | | PATHOLOGY | [address] [...] | + + + + + | [facility] | [address] | [place] [address] | | | PATHOLOGY | [address] | | | + + + + + | [facility] | [address] | [place] [address] | | | PATHOLOGY | [address] [...] + + + + + | [facility] DEPARTMENT OF | [address] [facility] | [place] [address] | | | PATHOLOGY | [address] | | | + + + + + | [facility] DEPARTMENT OF | [address] | [place] [address] | | | PATHOLOGY | [address] [...] (H)Comment: | 0.90 - 1.20 INR | [facility] | | | | PT INR [...] | + + + + + | [facility] | [address] | [place] [address] | | | PATHOLOGY | [address] | | | + + + + + | [facility] DEPARTMENT OF | [address] | [place] [address] | | | PATHOLOGY | [address] [...] DEPARTMENT OF | [address] | [place] [address] | | | PATHOLOGY | [address] | | | + + + + + | [facility] DEPARTMENT OF | [address] | [place] [address] | | | PATHOLOGY | [address] [...] + + + + + | [facility] DEPARTMENT OF | [facility] | [place] [address] | | | PATHOLOGY | [address] | | | + + + + + | [facility] DEPARTMENT OF | [facility] | [place] [address] | | | PATHOLOGY | [address] [...] + + + + + | [facility] DEPARTMENT OF | [address] [facility] | [place] [address] | | | PATHOLOGY | [address] | | | + + + + + | [facility] DEPARTMENT OF | [address] | [place] [address] | | | PATHOLOGY | [address] [...] | + + + + + | [facility] | [address] [facility] | [place] [address] | | | PATHOLOGY | [address] | | | + + + + + | [facility] | [address] [facility] | [place] [address] | | | PATHOLOGY | [address] [...] | | | | | | the [facility] LabManual: | | | | | | [email or web address] | | | | | [email or web address] [...] + + + + + | [facility] DEPARTMENT | [address] [facility] | [place] [address] | | | PATHOLOGY | [address] | | | + + + + + | [facility] | [address] [facility] | [place] [address] | | | PATHOLOGY | [address] [...] + + + + + | [facility] DEPARTMENT OF | [address] [facility] | [place] [address] | | | PATHOLOGY | [address] | | | + + + + + | [facility] DEPARTMENT OF | [address] [facility] | [place] [address] | | | PATHOLOGY | [address] [...] | + + + + + | [facility] | [facility] | [place] [address] | | | PATHOLOGY | [address] | | | + + + + + | [facility] DEPARTMENT OF | [address] [facility] | [place] [address] | | | PATHOLOGY | [address] [...] | + + + + + | [facility] | [address] [facility] | [place] [address] | | | PATHOLOGY | [address] | | | + + + + + | [facility] | [address] [facility] | [place] [address] | | | PATHOLOGY | [address] [...] + + + + + | [facility] DEPARTMENT OF | [address] | [place] [address] | | | PATHOLOGY | [address] | | | + + + + + | [facility] DEPARTMENT | [address] | [place] [address] | | | PATHOLOGY | [address] [...] | + + + + + | [facility] | [facility] | [place] [address] | | | PATHOLOGY | [address] | | | + + + + + | [facility] | [facility] | [place] [address] | | | PATHOLOGY | [address] [...] + + + + + | [facility] DEPARTMENT OF | [address] | [place] [address] | | | PATHOLOGY | [address] | | | + + + + + | [facility] DEPARTMENT OF | [address] | [place] [address] | | | PATHOLOGY | [address] [...] | + + + + + | [facility] | [facility] [address] | [place] [address] | | | PATHOLOGY | [address] | | | + + + + + | [facility] DEPARTMENT OF | [facility] | [place] [address] | | | PATHOLOGY | [address] [...] DEPARTMENT OF | [address] | [place] [address] | | | PATHOLOGY | [address] | | | + + + + + | [facility] DEPARTMENT OF | [address] [facility] | [place] [address] | | | PATHOLOGY | [address] [...] + + + + + | [facility] DEPARTMENT OF | [address] | [place] [address] | | | PATHOLOGY | [address] | | | + + + + + | [facility] DEPARTMENT OF | [address] | [place] [address] | | | PATHOLOGY | [address] [...] + + + + + | [facility] DEPARTMENT OF | [address] | [place] [address] | | | PATHOLOGY | [address] | | | + + + + + | [facility] DEPARTMENT OF | [address] | [place] [address] | | | PATHOLOGY | [address] [...] + + + + + | [facility] DEPARTMENT OF | [address] | [place] [address] | | | PATHOLOGY | [address] | | | + + + + + | [facility] DEPARTMENT OF | [address] | [place] [address] | | | PATHOLOGY | [address] [...] | + + + + + | [facility] | [address] [facility] | [place] [address] | | | PATHOLOGY | [address] | | | + + + + + | [facility] | [address] | [place] [address] | | | PATHOLOGY | [address] | | | + + + + + documented in this encounter Visit Diagnoses Not on filedocumented in this encounter"
--- OUTSIDE RECORDS SUMMARY | ~2020-05-30 | XMS | Encounter Summary ---
Demographics + + + | Address | [address] | | | [place] [address] | + + + | Home Phone [...] Providers + +------+ + | Care Commercial Journeyman Electrician Name | Role | Phone | + +------+ + | Wendi Aiken | PCP | | + +------+ + Encounter Details +--------+ + + + + | Date | Type | Department | Care Team | Description | +--------+ + + + + | 07/12/ | Hospital | [facility] | Sj Valdes MD | Left lumbar | | 2017 | Encounter | [facility] [address] | radiculopathy; DISC | | | | [place] | [place] [address] | DISEASE, LUMBAR; | | | | [place] [address] | [phone] | Back pain, | | | | [phone] | | unspecified back | | | [...] [place] | | | | | | [address] | | | | | | | | +--------+---------+ + + + | 06/26/ | Office | Cardiology | Monserrat Weems | | | 2019 | Visit | | [address] | | | | | | [address] | | | | | | [place] [address] | | | | | | [phone] | | | | | | | [...]
--- OUTSIDE RECORDS SUMMARY | ~2020-05-30 | XMS | Encounter Summary ---
Demographics + + + | Address | [address] | | | [place] [address] | + + + | Home Phone | | + + + | Preferred Language | Unknown | + + + | Marital Status | Single | + + + | Gnosticism Affiliation | NON | + + + | Race | White | + + + | Ethnic Group | Not or | + + + Author + + + | Author | [facility] | + + + | Organization | [facility] | + + + | Address | Unknown | + + + | Phone | Unavailable | + + + Support + + +---------+ + | Name | Relationship | Address | Phone | + + +---------+ + | Royce Menchaca | ECON | Unknown | | + + +---------+ + Care Team Providers + +------+ + | Care Automobile Repair Service Estimator Name | Role | Phone | + +------+ + | Miquel Calhoun MD | PCP | | + +------+ + Reason for Visit + + + | Reason | Comments | + + + | Urine incontinence | Dr. Holbrook | + + + Encounter Details +--------+ + + + + | Date | Type | Department | Care Team | Description | +--------+ + + + + | 09/13/ | Telephone | [facility] | Monserrat Holbrook MD | Urine incontinence | | 2012 | | [facility] | [address] | (Dr. Holbrook) | | | | [address] [facility] [address] | | | | | [address] | [place], [place] | | | | | [place], [facility] floor | [address] | | | | | [place], [place] | [phone] | | | | | [address] | | | | | | [phone] | | | +--------+ + + + [...]
--- OUTSIDE RECORDS SUMMARY | ~2020-05-30 | XMS | Encounter Summary ---
Demographics + + + | Address | [address] | | | [place] [address] | + + + | Home Phone [...] Providers + +------+ + | Care City Planning Engineer Name | Role | Phone | + +------+ + | Miquel Calhoun MD | PCP | | + +------+ + Encounter Details +--------+ + + + + | Date | Type | Department | Care Team | Description | +--------+ + + + + | 11/29/ | Documentati | [facility] | Khushbu Cortez, | | | 2013 | on | [facility] | [employer] [place], [place] | | | | | [address] | [address] | | | | | [address] | | | | | | [place], [address] [place] [address] | | | | | | [place], [place] | | | | | | [address] | | | | | | [phone] | | | +--------+ + + + [...]
--- OUTSIDE RECORDS SUMMARY | ~2020-05-30 | XMS | Encounter Summary ---
Demographics + + + | Address | [address] | | | [place] [address] | + + + | Home Phone [...] | + + +---------+ + | Nathalia oKes | ECON | Unknown | | + + +---------+ + Care Team Providers + +------+ + | Care Type Photography Supervisor Name | Role | Phone | + +------+ + | Wendi Aiken | PCP | | + +------+ + Encounter Details +--------+ + + + + | Date | Type | Department | Care Team | Description | +--------+ + + + + | 05/26/ | Hospital | [facility] | Conversion | Pain | | 2018 | Encounter | CONVERSION [address] | Transaction, | | | | | [address] | Provider Unknown | | | | | [place], [place] | [phone] | | | | | [address] | (Fax) | | | | | [phone] | | | +--------+ + + + [...] [place] | | | | | | [address] | | | | | | | | +--------+---------+ + + + | 06/26/ | Office | Cardiology | Monserrat Weems | | | 2019 | Visit | | [address] | | | | | | [address] | | | | | | [place] [address] | | | | | | [phone] | | | | | | | [...] Note | + + | Reji Pacheco Beth - 06/13/2019 8:20 AM PDT This is a non-reportable procedure | | without a radiologist report and isused for image storage only | + + documented in this encounter Visit Diagnoses + + | Diagnosis | + + | Pain Generalized pain | + + documented in this encounter"
--- OUTSIDE RECORDS SUMMARY | ~2020-05-30 | XMS | Encounter Summary ---
Demographics + + + | Address | [address] | | | [place] [address] | + + + | Home Phone [...] | Author | [facility] | + + + | Organization | [facility] | + + + | Address | Unknown | + + + | Phone | Unavailable | + + + Support + + +---------+ + | Name | Relationship | Address | Phone | + + +---------+ + | Royce Menchaca | ECON | Unknown | | + + +---------+ + Care Team Providers + +------+ + | Care Hash Slinger Name | Role | Phone | + +------+ + | Miquel Calhoun MD | PCP | | + +------+ + Encounter Details +--------+ + + + + | Date | Type | Department | Care Team | Description | +--------+ + + + + | 09/17/ | Telephone | [facility] | Khushbu Cortez, | | | 2012 | | [facility] | [place], [place] | | | | | [address] | [address] | | | | | [address] | | | | | | [place], [address] [place] [address] | | | | | | [place], [place] | | | | | | [address] | | | | | | [phone] | | | +--------+ + + + [...]
--- OUTSIDE RECORDS SUMMARY | ~2020-05-30 | XMS | Encounter Summary ---
Demographics + + + | Address | [address] | | | [place] [address] | + + + | Home Phone [...] Author + + + | Author | [facility] | + + + | Organization | [facility] | + + + | Address | Unknown | + + + | Phone | Unavailable | + + + Support + + +---------+ + | Name | Relationship | Address | Phone | + + +---------+ + | Royce Menchaca | ECON | Unknown | | + + +---------+ + Care Team Providers + +------+ + | Care Quality Control Tech Name | Role | Phone | [...] for | | 2016 | | at [facility] [address] | [address] | new pt appt) | | | | Brittany Turner for | [address] [place], | | | | | Health and Healing, | [place] [address] | | | | | [facility] | [phone] | | | | | Floor [place], [place] | | | | | | [address] | | | | | | [phone] | | | +--------+ + + + [...]
--- OUTSIDE RECORDS SUMMARY | ~2020-05-30 | XMS | Encounter Summary ---
Demographics + + + | Address | [address] | | | [place] [address] | + + + | Home Phone [...] Team Providers + +------+ + | Care Silk Crepe Machine Operator Name | Role | Phone | + +------+ + | Romy De La Paz MD | PCP | | + +------+ + Reason for Visit + +--------+ + | Reason | Onset | Comments | | | Date | | + +--------+ + | Paperwork | 09/30/ | [facility] | | | 2019 | | + +--------+ + Encounter Details +--------+ + + + + | Date | Type | Department | Care Team | Description | +--------+ + + + + | 07/30/ | Telephone | [facility] | Maykel Hutchins MD | Paperwork ([facility] | | 2019 | | [facility] | [address] | Steve Brink | | | | ORTHOPEDIC SPINE | [facility] | Healthcare Orders) | | | | [address] [facility] | [address] | | | | | [address] | | | | | | [address] | | | | | | [phone] | | | +--------+ + + + [...] up after surgery with the case wo rkers in the hospital because it is not know how much care patient will need until after stephanie karuna. Patient would like information sent to Dr. Hutchins. Informed patient I would send a mes ludwig to Dr. Hutchins with patient's concerns. Kori verbalized understanding and agreed with t he plan. elephone Chirag cowart - Autumn Fuentes - 08/01/2019 10:27 AM PDTKori, is calling again for Paperwork ( [facility]) and would like a call back. Additional Call Details: Patient called again in regards to her Home Care post surgery. S tated that she'd like for Dr Hutchins to have Home Healthcare in [place] to help with post car e. Patient is waiting on a call back to see if Dr Hutchins is able to get this done for her. Haris joseph can be reached at Home Number listed in Chart. elephone Encounter - Elisa Brown - 07/31/2019 2:17 PM PDTLaurie, is calling again for Paperwork ([facility]) and would like a call back. Additional Call Details: Patient would like to speak with someone as soon as possible abou t her help for care. Please call [phone]. elephone Encounter - Sj Marino - 07/30/2019 11:33 AM Tiffany, is calling regarding Paperwork ([facility]) and would like a call back. Additional Call Details: Calling to get paperwork ready for procedure for [facility] in order to have assistance post-operation with home activities. Contact [facility] at: [phone] Contact patient with status and information at number listed under home in chart. If this is a symptom based call, was patient offered triage? Not Applicable If this is a symptom based call and you were unable to immediately transfer the call to a jose m franco tape editor was caller made aware that if at [...] [place] | | | | | | [address] | | | | | | | | +--------+---------+ + + + | 06/26/ | Office | Cardiology | Monserrat Weems | | | 2019 | Visit | | [address] | | | | | | [address] | | | | | | [place] [address] | | | | | | [phone] | | | | | | | | +--------+---------+ + + + documented as of this encounter Visit Diagnoses Not on filedocumented in this encounter"
--- OUTSIDE RECORDS SUMMARY | ~2020-05-30 | XMS | Encounter Summary ---
Demographics + + + | Address | [address] | | | [place] [address] | + + + | Home Phone [...] Team Providers + +------+ + | Care Databases Computer Consultant Name | Role | Phone | [...] | 2016 | Encounter | at [facility] [address] | [address] | havea problem with | | | | [facility] | [address] [place], | my heart. | | | | Health and Healing, | [place] [address] | | | | | Building | [phone] | | | | | Floor [place], [place] | | | | | | [address] | | | | | | [phone] | | | +--------+ + + + [...]
--- OUTSIDE RECORDS SUMMARY | ~2020-05-30 | XMS | Encounter Summary ---
Demographics + + + | Address | [address] | | | [place] [address] | + + + | Home Phone [...] Team Providers + +------+ + | Care Truck Mechanic Name | Role | Phone | [...] | Encounter | at [facility] [address] | | Change: Effective | | | | Ave [facility] | | October 31 | | | | Health and Healing, | | | | | | Building | | | | | | Floor [place], [place] | | | | | | [address] | | | | | | [phone] | | | +--------+ + + + [...]
--- OUTSIDE RECORDS SUMMARY | ~2020-05-30 | XMS | Encounter Summary ---
Demographics + + + | Address | [address] | | | [place] [address] | + + + | Home Phone [...] Author + + + | Author | [facility] | + + + | Organization | [facility] | + + + | Address | Unknown | + + + | Phone | Unavailable | + + + Support + + +---------+ + | Name | Relationship | Address | Phone | + + +---------+ + | Royce Menchaca | ECON | Unknown | | + + +---------+ + Care Team Providers + +------+ + | Care Bobbin Cleaner Hand Name | Role | Phone | + +------+ + | Oxana Nye | PCP | | + +------+ + Encounter Details +--------+------+ + + + | Date | Type | Department | Care Team | Description | +--------+------+ + + + | 03/09/ | Lab | [facility] at [facility] | | Chest pain, | | 2015 | | [address] | | unspecified type | | | | [facility] | | | | | | and Healing, | | | | | | [address] | | | | | | [place], [place] | | | | | | [address] | | | | | | [phone] | | | +--------+------+ + + + [...] NON-HDL | 54 | <=130 mg/dL | [facility] | | | CHOLESTEROL | [...] + + + + + | [facility] | [address] | [place], [place] | | | | [address] | [address] | | + + + + + documented in this encounter Visit Diagnoses + + | Diagnosis | + + | Chest pain, unspecified type | + + documented in this encounter"
--- OUTSIDE RECORDS SUMMARY | ~2020-05-30 | XMS | Encounter Summary ---
Demographics + + + | Address | [address] | | | [place] [address] | + + + | Home Phone [...] + + | Author | [facility] | + + + | Organization | [facility] | + + + | Address | Unknown | + + + | Phone | Unavailable | + + + Support + + +---------+ + | Name | Relationship | Address | Phone | + + +---------+ + | Royce Menchaca | ECON | Unknown | | + + +---------+ + Care Team Providers + +------+ + | Care Associate Product Integrity Engineer Name | Role | Phone | [...] COURTNEY Andrews | | | | | [place], [place] | [place], [place] | | | | | [address] | [address] | | | | | [phone] | [phone] | | | | | | | [...] + + + + + | [facility] DEPARTMENT OF | [address] | [place] [address] | | | PATHOLOGY | [address] | | | + + + + + | [facility] DEPARTMENT OF | [address] | [place] [address] | | | PATHOLOGY | [address] [...] | + + + + + | [facility] | [facility] [address] | [place] [address] | | | PATHOLOGY | [address] | | | + + + + + | [facility] | [address] [place] [address] | [place] [address] | | | PATHOLOGY | [address] [...] + + + + + | [facility] DEPARTMENT OF | [address] | [place] [address] | | | PATHOLOGY | [address] | | | + + + + + | [facility] DEPARTMENT OF | [address] | [place] [address] | | | PATHOLOGY | [address] [...] DEPARTMENT OF | [address] | [place] [address] | | | PATHOLOGY | [address] | | | + + + + + | [facility] DEPARTMENT OF | [address] | [place] [address] | | | PATHOLOGY | [address] [...] + + + + + | [facility] DEPARTMENT OF | [address] | [place] [address] | | | PATHOLOGY | [address] | | | + + + + + | [facility] DEPARTMENT OF | [address] | [place] [address] | | | PATHOLOGY | [address] | | | + + + + + MAGNESIUM, PLASMA (06/30/2006 7:00 AM PDT) + +-------+ + + + | Component | Value | Ref Range | Performed | Pathologist | | | | | At | Signature | + +-------+ + + + | MAGNESIUM,P | 2.3 | 1.8 - 2.5 mg/dL | [facility] | | | LASMA | | [...] + + + + + | [facility] DEPARTMENT OF | [address] | [place] [address] | | | PATHOLOGY | [address] | | | + + + + + | [facility] DEPARTMENT OF | [address] | [place] [address] | | | PATHOLOGY | [address] [...] DEPARTMENT OF | [address] | [place] [address] | | | PATHOLOGY | [address] | | | + + + + + | [facility] DEPARTMENT OF | [address] | [place] [address] | | | PATHOLOGY | [address] [...] DEPARTMENT OF | [address] | [place] [address] | | | PATHOLOGY | [address] | | | + + + + + | [facility] DEPARTMENT OF | [address] | [place] [address] | | | PATHOLOGY | [address] [...] + + + + + | [facility] DEPARTMENT OF | [address] | [place] [address] | | | PATHOLOGY | [address] | | | + + + + + | [facility] DEPARTMENT OF | [address] | [place] [address] | | | PATHOLOGY | [address] [...] + + + + + | [facility] DEPARTMENT OF | [address] | [place] [address] | | | PATHOLOGY | [address] | | | + + + + + | [facility] DEPARTMENT OF | [facility] | [place] [address] | | | PATHOLOGY | [address] [...] DEPARTMENT OF | [address] | [place] [address] | | | PATHOLOGY | [address] | | | + + + + + | [facility] DEPARTMENT OF | [address] | [place] [address] | | | PATHOLOGY | [address] | | | + + + + + PHOSPHORUS QUANT, URINE (06/30/2006 4:45 AM PDT) + +-------+ + + + | Component | Value | Ref Range | Performed | Pathologist | | | | | At | Signature | + +-------+ + + + | PHOSPHORUS | 28.8 | mg/dL | [facility] | | | CONC UR | | [...] + + + + + | [facility] DEPARTMENT OF | [address] | [place] [address] | | | PATHOLOGY | [address] | | | + + + + + | [facility] DEPARTMENT OF | [address] | [place] [address] | | | PATHOLOGY | [address] [...] | + + + + + | [facility] | [address] | [place] [address] | | | PATHOLOGY | [address] | | | + + + + + | [facility] | [address] | [place] [address] | | | PATHOLOGY | [address] [...] DEPARTMENT OF | [address] | [place] [address] | | | PATHOLOGY | [address] | | | + + + + + | [facility] DEPARTMENT OF | [address] | [place] [address] | | | PATHOLOGY | [address] [...] + + + + + | [facility] DEPARTMENT | [address] | [place] [address] | | | PATHOLOGY | [address] | | | + + + + + | [facility] DEPARTMENT | [facility] | [place] [address] | | | PATHOLOGY | [address] [...] [facility] | [address] | [place], [place] | | | UN[facility] | | [address] | | + + + + + [...] | + + + + + | [facility] | [address] | [place] [address] | | | PATHOLOGY | [address] | | | + + + + + | [facility] | [address] [place] [address] [address] | [place] [address] | | | PATHOLOGY | [address] [...] + + + + + | [facility] DEPARTMENT | [address] | [place] [address] | | | PATHOLOGY | [address] | | | + + + + + | [facility] | [address] | [place] [address] | | | PATHOLOGY | [address] [...] [facility] | [address] | [place], [place] | | | [facility] | | [address] | | + + + + + [...] | | | | | performed at [facility] | | | | | | [facility] | | | | | | Laboratory. | | | | + + + + + + + + | Specimen | + + | | + + + + + + + | Performing | Address | City/State/Zipcode | Phone Number | | Organization | | | | + + + + + | [facility] | [address] | [place] [address] | | | LAB-MICRO | | | [...] + + + + + | [facility] DEPARTMENT OF | [address] | [place] [address] | | | PATHOLOGY | [address] | | | + + + + + | [facility] DEPARTMENT OF | [address] | [place] [address] | | | PATHOLOGY | [address] [...] | [facility] DEPARTMENT OF | [address] | [place] [address] | | | PATHOLOGY | [address] | | | + + + + + | [facility] DEPARTMENT OF | [address] | [place] [address] | | | PATHOLOGY | [address] [...] OF | [address] | [place] [address] | | | PATHOLOGY | [address] | | | + + + + + | [facility] DEPARTMENT OF | [address] | [place] [address] | | | PATHOLOGY | [address] | | | + + + + + LIVER SET (06/29/2006 6:55 AM PDT) + +---------+ + + + | Component | Value | Ref Range | Performed | Pathologist | | | | | At | Signature | + +---------+ + + + | ALBUMIN, | 3.1 (L) | 3.5 - 4.7 g/dL | [facility] | | | PLASMA | | [...] DEPARTMENT OF | [address] | [place] [address] | | | PATHOLOGY | [address] | | | + + + + + | [facility] DEPARTMENT OF | [address] | [place] [address] | | | PATHOLOGY | [address] | | | + + + + + MAGNESIUM, PLASMA (06/29/2006 6:55 AM PDT) + +-------+ + + + | Component | Value | Ref Range | Performed | Pathologist | | | | | At | Signature | + +-------+ + + + | MAGNESIUM,P | 2.1 | 1.8 - 2.5 mg/dL | [facility] | | | LASMA | | [...] | + + + + + | [facility] | [address] | [place] [address] | | | PATHOLOGY | [address] | | | + + + + + | [facility] | [address] | [place] [address] | | | PATHOLOGY | [address] [...] DEPARTMENT OF | [address] | [place] [address] | | | PATHOLOGY | [address] | | | + + + + + | [facility] DEPARTMENT OF | [address] | [place] [address] | | | PATHOLOGY | [address] [...] + + + + + | [facility] DEPARTMENT OF | [address] | [place] [address] | | | PATHOLOGY | [address] | | | + + + + + | [facility] DEPARTMENT OF | [address] | [place] [address] | | | PATHOLOGY | [address] [...] + + + + + | [facility] DEPARTMENT OF | [address] | [place] [address] | | | PATHOLOGY | [address] | | | + + + + + | [facility] DEPARTMENT OF | [address] | [place] [address] | | | PATHOLOGY | [address] [...] + + | [facility] DEPARTMENT OF | [address] | [place] [address] | | | PATHOLOGY | [address] | | | + + + + + | [facility] DEPARTMENT OF | [address] | [place] [address] | | | PATHOLOGY | [address] | | | + + + + + MAGNESIUM, PLASMA (06/28/2006 7:40 PM PDT) + +-------+ + + + | Component | Value | Ref Range | Performed | Pathologist | | | | | At | Signature | + +-------+ + + + | MAGNESIUM,P | 2.2 | 1.8 - 2.5 mg/dL | [facility] | | | LASMA | | | [...] + + + + + | [facility] DEPARTMENT | [facility] | [place] [address] | | | PATHOLOGY | [address] | | | + + + + + | [facility] | [address] [place] [address] | [place] [address] | | | PATHOLOGY | [address] [...] + + + + + | [facility] DEPARTMENT OF | [address] | [place] [address] | | | PATHOLOGY | [address] | | | + + + + + | [facility] DEPARTMENT OF | [address] | [place] [address] | | | PATHOLOGY | [address] [...] + + + + + | [facility] DEPARTMENT OF | [address] | [place] [address] | | | PATHOLOGY | [address] | | | + + + + + | [facility] DEPARTMENT OF | [address] | [place] [address] | | | PATHOLOGY | [address] [...] | 65 - 110 mg/dL | [facility] | | | PLASMA | | [...] | + + + + + | [facility] | [facility] | [place] [address] | | | PATHOLOGY | [address] | | | + + + + + | [facility] DEPARTMENT OF | [address] | [place] [address] | | | PATHOLOGY | [address] [...] | [facility] DEPARTMENT OF | [address] | [place] [address] | | | PATHOLOGY | [address] | | | + + + + + | [facility] DEPARTMENT OF | [address] | [place] [address] | | | PATHOLOGY | [address] [...] | + + + + + | [facility] | [address] | [place] [address] | | | PATHOLOGY | [address] | | | + + + + + | [facility] | [address] | [place] [address] | | | PATHOLOGY | [address] [...] + + + + + | [facility] DEPARTMENT OF | [address] | [place] [address] | | | PATHOLOGY | [address] | | | + + + + + | [facility] DEPARTMENT OF | [address] | [place] [address] | | | PATHOLOGY | [address] [...] | + + + + + | [facility] | [facility] | [place] [address] | | | PATHOLOGY | [address] | | | + + + + + | [facility] | [facility] | [place] [address] | | | PATHOLOGY | [address] [...] + + + + + | [facility] DEPARTMENT OF | [address] | [place] [address] | | | PATHOLOGY | [address] | | | + + + + + | [facility] DEPARTMENT OF | [address] | [place] [address] | | | PATHOLOGY | [address] [...] + + + + + | [facility] DEPARTMENT OF | [address] | [place] [address] | | | PATHOLOGY | [address] | | | + + + + + | [facility] DEPARTMENT OF | [address] | [place] [address] | | | PATHOLOGY | [address] [...] | + + + + + | [facility] | [address] | [place] [address] | | | PATHOLOGY | [address] | | | + + + + + | [facility] | [address] | [place] [address] | | | PATHOLOGY | [address] [...] + + + | Test performed at [facility] | | + + + + + + + + | Performing | Address | City/State/Zipcode | Phone Number | | Organization | | | | + + + + + | [facility] | [address] | [place] [address] | | | LABORATORY | | | [...] + + + | Test performed at [facility] | | + + + + + + + + | Performing | Address | City/State/Zipcode | Phone Number | | Organization | | | | + + + + + | [facility] | [address] [facility] | [place] [address] | | | LABORATORY | | | | + + + + + IOD-ORGANIC BASE CONFIRM (06/27/2006 11:55 AM PDT) + + | Specimen | + + | | + + + + + | Narrative | Performed At | + + + | Test performed at [facility] | [facility] | | | DEPARTMENT OF | | | PATHOLOGY | + + + + + + + + | Performing | Address | City/State/Zipcode | Phone Number | | Organization | | | | + + + + + | [facility] | [address] | [place] [address] | | | PATHOLOGY | [address] | | | + + + + + | [facility] DEPARTMENT OF | [address] | [place] [address] | | | PATHOLOGY | [address] [...] | | | | | performed at [facility] | | | | | | [facility] | | | | | | Laboratory. | | | | + + + + + + + + | Specimen | + + | | + + + + + + + | Performing | Address | City/State/Zipcode | Phone Number | | Organization | | | | + + + + + | [facility] | [address] [facility] | [place] [address] | | | LAB-MICRO | | | [...] | uIU/ml | | | | | [facility] | | | | | | Laboratories. | | | | + + + + + + + + | Specimen | + + | | + + + + + + + | Performing | Address | City/State/Zipcode | Phone Number | | Organization | | | | + + + + + | [facility] | [address] | [place] [address] | | | LABORATORY | | | [...] | + + + + + | [facility] | [facility] | [place] [address] | | | PATHOLOGY | [address] | | | + + + + + | [facility] DEPARTMENT OF | [facility] | [place] [address] | | | PATHOLOGY | [address] [...] | + + + + + | [facility] | [address] | [place] [address] | | | PATHOLOGY | [address] | | | + + + + + | [facility] | [address] | [place] [address] | | | PATHOLOGY | [address] [...] + + + + + | [facility] DEPARTMENT OF | [address] | [place] [address] | | | PATHOLOGY | [address] | | | + + + + + | [facility] DEPARTMENT OF | [address] | [place] [address] | | | PATHOLOGY | [address] [...] + + + + + | [facility] DEPARTMENT OF | [address] | [place] [address] | | | PATHOLOGY | [address] | | | + + + + + | [facility] DEPARTMENT OF | [facility] | [place] [address] | | | PATHOLOGY | [address] [...] | + + + + + | [facility] | [address] | [place] [address] | | | PATHOLOGY | [address] | | | + + + + + | [facility] | [address] | [place] [address] | | | PATHOLOGY | [address] [...] + + + + + | [facility] DEPARTMENT OF | [address] | [place] [address] | | | PATHOLOGY | [address] | | | + + + + + | [facility] DEPARTMENT OF | [address] | [place] [address] | | | PATHOLOGY | [address] [...] + + | [facility] DEPARTMENT OF | [facility] | [place] [address] | | | PATHOLOGY | [address] | | | + + + + + | [facility] DEPARTMENT OF | [facility] | [place] [address] | | | PATHOLOGY | [address] [...] | | | | | performed at [facility] | | | | | | [facility] | | | | | | Laboratory. | | | | + + + + + + + + | Specimen | + + | | + + + + + + + | Performing | Address | City/State/Zipcode | Phone Number | | Organization | | | | + + + + + | [facility] | [address] | [place] [address] | | | LAB-MICRO | | | [...] | | | | | performed at [facility] | | | | | | [facility] | | | | | | Laboratory. | | | | + + + + + + + + | Specimen | + + | | + + + + + + + | Performing | Address | City/State/Zipcode | Phone Number | | Organization | | | | + + + + + | [facility] | [address] | [place] [address] | | | LAB-MICRO | | | [...] + + | [facility] DEPARTMENT OF | [address] | [place] [address] | | | PATHOLOGY | [address] | | | + + + + + | [facility] DEPARTMENT OF | [address] | [place] [address] | | | PATHOLOGY | [address] [...] | + + + + + | [facility] | [address] | [place] [address] | | | LABORATORY | | | [...] | | | | QUAL, SERUM | [facility] | | | | | | Laboratories. | | | | + + + + + + + + | Specimen | + + | | + + + + + + + | Performing | Address | City/State/Zipcode | Phone Number | | Organization | | | | + + + + + | [facility] | [address] | [place] [address] | | | LABORATORY | | | [...] | | AB | Test performed by [facility] | | | | | | Chong [...] + + + | [facility] | [address] | [place] [address] | | | LABORATORY | | | [...] | | | | | performed at [facility] | | | | | | [facility] | | | | | | Laboratory. | | | | + + + + + + + + | Specimen | + + | | + + + + + + + | Performing | Address | City/State/Zipcode | Phone Number | | Organization | | | | + + + + + | [facility] | [address] | [place] [address] | | | LAB-MICRO | | | [...] + + + + + | [facility] DEPARTMENT | [address] | [place] [address] | | | PATHOLOGY | [address] | | | + + + + + | [facility] | [address] [place] [address] | [place] [address] | | | PATHOLOGY | [address] [...] DEPARTMENT OF | [address] | [place] [address] | | | PATHOLOGY | [address] | | | + + + + + | [facility] DEPARTMENT OF | [address] | [place] [address] | | | PATHOLOGY | [address] [...] | + + + + + | [facility] | [address] | [place] [address] | | | PATHOLOGY | [address] | | | + + + + + | [facility] | [address] | [place] [address] | | | PATHOLOGY | [address] [...] + + + + + | [facility] DEPARTMENT OF | [address] | [place] [address] | | | PATHOLOGY | [address] | | | + + + + + | [facility] DEPARTMENT OF | [address] | [place] [address] | | | PATHOLOGY | [address] [...] | 0.90 - 1.20 INR | [facility] | | | | PT INR Therapeutic [...] | + + + + + | [facility] | [address] | [place] [address] | | | PATHOLOGY | [address] | | | + + + + + | [facility] DEPARTMENT OF | [address] | [place] [address] | | | PATHOLOGY | [address] [...] DEPARTMENT OF | [address] | [place] [address] | | | PATHOLOGY | [address] | | | + + + + + | [facility] DEPARTMENT OF | [address] | [place] [address] | | | PATHOLOGY | [address] [...] + + + + + | [facility] DEPARTMENT OF | [facility] [address] | [place] [address] | | | PATHOLOGY | [address] | | | + + + + + | [facility] DEPARTMENT OF | [facility] [address] | [place] [address] | | | PATHOLOGY | [address] [...] + + + + + | [facility] DEPARTMENT OF | [address] | [place] [address] | | | PATHOLOGY | [address] | | | + + + + + | [facility] DEPARTMENT OF | [address] | [place] [address] | | | PATHOLOGY | [address] [...] | + + + + + | [facility] | [address] | [place] [address] | | | PATHOLOGY | [address] | | | + + + + + | [facility] | [address] | [place] [address] | | | PATHOLOGY | [address] [...] | | | | | the [facility] LabManual: | | | | | | [email or web address] | | | | | | [email or web address] [...] + + + + + | [facility] DEPARTMENT | [address] | [place] [address] | | | PATHOLOGY | [address] | | | + + + + + | [facility] | [address] | [place] [address] | | | PATHOLOGY | [address] [...] + + + + + | [facility] DEPARTMENT OF | [address] | [place] [address] | | | PATHOLOGY | [address] | | | + + + + + | [facility] DEPARTMENT OF | [address] | [place] [address] | | | PATHOLOGY | [address] [...] | + + + + + | [facility] | [facility] [address] | [place] [address] | | | PATHOLOGY | [address] | | | + + + + + | [facility] DEPARTMENT OF | [address] | [place] [address] | | | PATHOLOGY | [address] [...] | + + + + + | [facility] | [address] | [place] [address] | | | PATHOLOGY | [address] | | | + + + + + | [facility] | [address] | [place] [address] | | | PATHOLOGY | [address] [...] + + + + + | [facility] DEPARTMENT OF | [address] | [place] [address] | | | PATHOLOGY | [address] | | | + + + + + | [facility] DEPARTMENT | [address] | [place] [address] | | | PATHOLOGY | [address] [...] | + + + + + | [facility] | [facility] [address] | [place] [address] | | | PATHOLOGY | [address] | | | + + + + + | [facility] | [facility] | [place] [address] | | | PATHOLOGY | [address] [...] + + + + + | [facility] DEPARTMENT OF | [address] | [place] [address] | | | PATHOLOGY | [address] | | | + + + + + | [facility] DEPARTMENT OF | [address] | [place] [address] | | | PATHOLOGY | [address] [...] | + + + + + | [facility] | [facility] | [place] [address] | | | PATHOLOGY | [address] | | | + + + + + | [facility] DEPARTMENT OF | [facility] | [place] [address] | | | PATHOLOGY | [address] [...] DEPARTMENT OF | [address] | [place] [address] | | | PATHOLOGY | [address] | | | + + + + + | [facility] DEPARTMENT OF | [address] | [place] [address] | | | PATHOLOGY | [address] [...] + + + + + | [facility] DEPARTMENT OF | [address] | [place] [address] | | | PATHOLOGY | [address] | | | + + + + + | [facility] DEPARTMENT OF | [address] | [place] [address] | | | PATHOLOGY | [address] [...] + + + + + | [facility] DEPARTMENT OF | [address] | [place] [address] | | | PATHOLOGY | [address] | | | + + + + + | [facility] DEPARTMENT OF | [address] | [place] [address] | | | PATHOLOGY | [address] [...] + + + + + | [facility] DEPARTMENT OF | [address] | [place] [address] | | | PATHOLOGY | [address] | | | + + + + + | [facility] DEPARTMENT OF | [address] | [place] [address] | | | PATHOLOGY | [address] [...] | + + + + + | [facility] | [address] | [place] [address] | | | PATHOLOGY | [address] | | | + + + + + | [facility] | [address] | [place] [address] | | | PATHOLOGY | [address] | | | + + + + + documented in this encounter Visit Diagnoses Not on filedocumented in this encounter"
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
--- OUTSIDE RECORDS SUMMARY | ~2020-05-30 | XMS | Encounter Summary ---
Demographics + + + | Address | [address] | | | [place] [address] | + + + | Home Phone [...] Team Providers + +------+ + | Care Composition Floor Layer Name | Role | Phone | + +------+ + | Concepción Gallardo NP | PCP | | + +------+ + Reason for Visit + +--------+ + | Reason | Onset | Comments | | | Date | | + +--------+ + | Appointment | 10/29/ | Increased pain-requesting appointmnet sooner | | | 2013 | | + +--------+ + Encounter Details +--------+ + + + + | Date | Type | Department | Care Team | Description | +--------+ + + + + | 10/29/ | Telephone | [facility] [place] | Sj Valdes MD | Appointment | | 2013 | | NEUROSURGERY [address] | [address] | (Increased | | | | [address] | [place] [address] | pain-requesting | | | | [place] | [phone] | appointmnet sooner) | | | | [address] | | | | | | [phone] | | | +--------+ + + + [...] this encounter Miscellaneous Notes Telephone Encounter - Kassidy Tee RN - 10/29/2014 3:59 PM PSTSpoke with Kori. Let her know 11/29/14 was the soonest appointment available with Dr. Valdes and we have also ad ded her to the cancellation list. Advised her to follow up with her PCP in the meantime to h elp with pain control issues and to get her through. I also informed patient we do not presc ribe pain medication until after surgery so it is most advantageous for her to follow up wit h her PCP. She states she has an appointment tomorrow with her PCP. She verbalized mary ayers. documented in this encounter Plan of Treatment +--------+---------+ + + + | Date | Type | Specialty | Care Team | Description | +--------+---------+ + + + | 06/18/ | Office | Pain Medicine | Denys Sibley, | | | 2019 | Visit | | DO [address] | | | | | | [place] | | | | | | [address] | | | | | | | | +--------+---------+ + + + | 06/26/ | Office | Cardiology | Monserrat Weems | | | 2020 | Visit | | [address] | | | | | | [address] | | | | | | [place] [address] | | | | | | [phone] | | | | | | | | +--------+---------+ + + + documented as of this encounter Visit Diagnoses Not on filedocumented in this encounter"
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
--- OUTSIDE RECORDS SUMMARY | ~2020-05-30 | XMS | Encounter Summary ---
Demographics + + + | Address | [address] | | | [place] [address] | + + + | Home Phone [...] Team Providers + +------+ + | Care Executive Sous Chef Name | Role | Phone | + +------+ + PCP | Unavailable | + +------+ + Encounter Details +--------+ + + + + | Date | Type | Department | Care Team | Description | +--------+ + + + + | 09/07/ | [facility] | [facility] | | | | 1998 - | Encounter | [facility] | | | | | | CENTER [address] | | | | 10/30/ | | [place] | | | | 1996 | | [address] | | | | | | [phone] | | | +--------+ + + + [...] [place] | | | | | | [address] | | | | | | | | +--------+---------+ + + + | 06/26/ | Office | Cardiology | Monserrat Weems | | | 2019 | Visit | | [address] | | | | | | [address] | | | | | | [place] [address] | | | | | | [phone] | | | | | | | | +--------+---------+ + + + documented as of this encounter Visit Diagnoses Not on filedocumented in this encounter"
--- OUTSIDE RECORDS SUMMARY | ~2020-05-30 | XMS | Encounter Summary ---
Demographics + + + | Address | [address] | | | [place] [address] | + + + | Home Phone [...] Team Providers + +------+ + | Care Edger Tailer Name | Role | Phone | + +------+ + | Concepción Gallardo NP | PCP | | + +------+ + Encounter Details +--------+ + + + + | Date | Type | Department | Care Team | Description | +--------+ + + + + | 07/17/ | Hospital | [facility] | Paty, | Intractable low back | | 2013 - | Encounter | [facility] | MD Venkat [address] | pain | | | | CLINICAL DECISION | [address] | | | 07/18/ | | [address] | [place] [address] | | | 2013 | | [place], [place] | [phone] | | | | | [address] | | | | | | [phone] | | | +--------+ + + + [...] Physician Filed: 07/18/14 1138 Date of Service: 07/18/141130 Status: Signed Greenskeeper Laborer: Bob Valverde DO (Physician) [facility] Service: Hospitalist Discharge Summary Date of [...] IV Fentanyl, a s well as oral [place] 10's, Zanaflex, Klonopin, and PT was ordered. [...] MRI system. Multiplanar sequences according to a [facility] protocol were acquired without contrast. FINDINGS: There [...] Note by Nati Mena RN at 07/18/14 3767 Author: Nati Mena RN Service: (none) Author Type: Registered Nurse Filed: 07/18/14 1311 Date of Service: 07/18/14 1310 Status: Signed Greenskeeper Laborer: Nati Mena RN (Registered Nurse) Pt discharged [...] Notes by Nati Mena RN at 07/18/14 1245 Author: Nati Mnea RN Service: (none) Author Type: Registered Nurse Filed: 07/18/14 1308 Date of Service: 07/18/14 1245 Status: Signed Greenskeeper Laborer: Nati Mena RN (Registered Nurse) Pt to [...] Date of Service: 07/18/14 1245 Status: Addendum Greenskeeper Laborer: Sj Bender PT (Physical Therapist) Related Notes: [...] Recommended (has FWW) Prior Function Level of [place] Modified independent with functional mobility;Modified independent wi [...] G Codes Mobility: Walking & Moving Around: $[id number] Current Status : CK - At least 40% but less than 60% impaired, limited or restricted $[id number] Projected Goal Status : CK - At [...] 0549 Date of Service: 07/18/14509 Status: Signed Greenskeeper Laborer: Dion Goldsmith RN (Registered Nurse) Pt awakened by [employer] and states she needs to go to [...] Progress Note by Dion Goldsmith RN at 07/18/14409 Author: Dion Goldsmith RN Service: (none) Author Type: Registered Nurse Filed: 07/18/14 0436 Date of Service: 07/18/14409 Status: Signed Greenskeeper Laborer: Dion Goldsmith RN (Registered Nurse) Pt's b/p slightly low. SALESPERSON FURS reports pt woke up to ask what her blood pressure is. Pt sleepin g now. Plan to recheck B/P in an hour. onver hiren Transaction, Provider Unknown - 07/18/2014 3:29 AM PDT Progress Notes by Sofi Sol RPH at 07/18/14328 Author: Sofi Sol RPH Service: (none) Author Type: Pharmacist Filed: 07/18/14328 Date of Service: 07/18/14328 Status: Signed Greenskeeper Laborer: Sofi Sol RPH (Pharmacist) Clinical Pharmacy Note: Renal Monitoring Kori Maddy 69 y.o. female Pharmacy dosing for renal function per Dr. Montgomery. Currently there are no labs. Pharmacy will adjust medications, if necessary, in AM when lab s are reported per P & T committee. Sofi Sol PharmD 07/18/2014 3:29 AM docume nted in this encounter H&P Notes Venkat Newman MD - 07/17/2014 10:49 PM PDTFormatting of this note might be diffe rent from the original. H&P by Venkat Newman MD at 07/17/14 5433 Author: Venkat Newman MD Service: Hospitalist Author Type: Physician Filed: 07/17/14 5841 Date of Service: 07/17/142248 Status: Signed Greenskeeper Laborer: Venkat Newman MD (Physician) [facility] Service: Hospitalist Admission History & Physical Date of Admission: 07/17/2014 Requesting Physician: Dr Adair, Emergency Department Reason for Admission: Intractable back pain History Obtained From: patient CHIEF COMPLAINT: Back pain / transfer from [facility] HISTORY OF PRESENT ILLNESS The patient is a 69 y.o. female with significant past medical history of Chronic back pain , COPD, DM, depression/anxiety who presents with Back pain Pt was admitted to [facility] on 10/2013 due to drug overdose and alcohol intoxication, apparen tly the result of a suicidal attempt. For full note please reviewed discharged summary from hospitalist. Pt refers having chronic back pain for several years, around 10. Getting worst in the last 3 months after falling backwards hitting her lower back. Since then she refers being less ac tive. Also due to her work, she spent most of her day sitting. Not going to physical therapy anymore (she refers she was told that she needs surgery first). In the last few days the pa in is getting progressively worst . 10/10 of intensity. Sharp in quality. Radiated to her le ft foot. Trigger and worsens with activity. No element that improve with her pain. Denies an y sphincter relaxation or incontinence. In fact, refers being constipated for the last 4 day s. No fever or chills. Pt went to the ED at [facility] were , per patient , was told needed to be transfer to [facility] for further imaging and possibel surgical intervention ED provider discussed the case with Neurosurgery rehabilitation engineer, Dr Anthony, who after reviewing th e images. No need for any surgical intervention. At this point the patient will be admitted under the hospitalist service for further assess ment and treatment REVIEW OF SYSTEMS Review of Systems Constitutional: Negative for fever, chills and diaphoresis. HENT: Negative for neck pain and neck stiffness. Respiratory: Negative for apnea, cough, choking, shortness of breath and wheezing. Cardiovascular: Negative for chest pain and palpitations. Gastrointestinal: Negative for nausea, vomiting, abdominal pain and abdominal distention. Genitourinary: Negative for dysuria and difficulty urinating. Musculoskeletal: Positive for back pain, arthralgias and gait problem. Negative for myalgia s. Skin: Negative for color change. Neurological: Negative for dizziness and headaches. Psychiatric/Behavioral: Negative for confusion and agitation. Past Medical History Diagnosis Date Chronic back pain Asthma Cancer breast Depression Diabetes mellitus, type 2 COPD (chronic obstructive pulmonary disease) Restless leg Tardive dyskinesia Other chronic pain Scoliosis Degenerative disc disease Past Surgical History Procedure Laterality Date Epidural steroid injection Hysterectomy Cholecystectomy Bladder suspension Immunizations: Influenza: Pneumoccocal: Allergies Allergen Reactions Ambien [Zolpidem] Other (See Comments) Unknown Ativan [Lorazepam] Other (See Comments) Unknown reaction. Has tolerated Clonazepam and Diazepam previously. 07/17/14 james Morphine Other (See Comments) Unknown. Per patient she takes hydrocodone at home, has taken tramadol without incident Prednisolone Other (See Comments) Depression/suicidal (Not in a hospital admission) History reviewed. No pertinent family history. History Social History Marital Status: Spouse Name: N/A Number of Children: N/A Years of Education: N/A Occupational History Not on file. Social History Main Topics Smoking status: Never Smoker Smokeless tobacco: Never Used Alcohol Use: 1.5 - 2 oz/week 3-4 drink(s) per week Drug Use: No Sexually Active: Not Currently Other Topics Concern Not on file Social History Narrative PHYSICAL EXAM Vital Signs: BP 136/67 | Pulse 79 | Temp(Src) 98.4 F (36.9 C) (Oral) | Resp 16 | Ht 1.626 m (5' 4") | Wt 65.772 kg (145 lb) | BMI 24.88 kg/m2 | SpO2 99% Physical Exam Constitutional: She appears well-developed. HENT: Head: Normocephalic and atraumatic. Eyes: EOM are normal. Pupils are equal, round, and reactive to light. Neck: Neck supple. No JVD present. Cardiovascular: Normal rate, regular rhythm and normal heart sounds. Exam reveals no wayne p and no friction rub. No murmur heard. Pulmonary/Chest: Effort normal. No respiratory distress. She has no wheezes. She has no ral es. She exhibits no tenderness. Abdominal: Soft. She exhibits no distension and no mass. There is no tenderness. There is n o rebound and no guarding. No hernia. Musculoskeletal: Arms: DATA CBC: Lab Results Component Value Date WBC [...] 11/17/2013 ALT 21 11/17/2013 EGFR >60 11/19/2013 Hepatic Function Panel: Lab Results Component Value Date PROT 5.2* 11/17/2013 ALB 3.1* 11/17/2013 BILITOT 0.6 11/17/2013 BILIDIR <0.1 11/14/2013 ALP 48 11/17/2013 AST 19 11/17/2013 ALT 21 11/17/2013 MRI L-Spine without contrast [[id number]] Resulted: 07/17/142215 Order Status: Completed Updated: 07/17/142220 Narrative: KORI CASTAÑEDA 1945 MRI LUMBAR SPINE WO CONTRAST 07/17/2014 9:56 PM INDICATION: Back pain COMPARISON: Plain radiographs, 11/18/13 TECHNIQUE: Imaging was performed on a 1.5 Aretha MRI system. Multiplanar sequences according to a [facility] protocol were acquired without contrast. FINDINGS: There [...] fatty atrophy of the lower paraspinous musculature. Impression: 1. Multilevel degenerative disc disease of the lumbar spine with mild dis cogenic edema at L3 and L5-S1. 2. There is potential impingement of the left L5 and S1 nerve root due to degenerative nidhi nges as above. 3. Reactive stress edema along the left pedicle of L5. T-Spine without c ontrast [[id number]] Resulted: 07/17/144 Order Status: Completed Updated: 07/17/14 215 9 Narrative: KORI CASTAÑEDA 1945 MRI THORACIC SPINE WO CONTRAST 07/17/2014 9:47 PM HISTORY: Back pain COMPARISON: None. TECHNIQUE: Imaging was performed on a 1.5 Aretha MRI system. Multiplanar sequences according to a [facility] protocol were acquired without contrast. FINDINGS: The bone marrow demonstrates normal signal intensity. Vertebral body heights appe ar to be maintained throughout the thoracic spine. The volume and signal intensity of the th oracic cord appears within normal limits. There is no epidural or prevertebral fluid. There is no paraspinous muscular edema. The thoracic aorta is normal in caliber. No aneurysm or di ssection is present. There is no intraspinal mass lesion. No high-grade spinal canal stenosis or neural foramina l narrowing is present. There is a dextroscoliotic curvature which is incidentally noted. Th ere is a mild disc osteophyte complex at T7-8 which results in minimal narrowing of the spin al canal. There appears to be some atelectasis along the left lower lobe. There appears to be a moder ate-sized hiatal hernia. The intrahepatic biliary system appears fairly generous which may s uggest intrahepatic biliary dilation. Impression: 1. There is no evidence of acute fracture of the thoracic spine. No high- grade spinal canal stenosis is present. 2. Potential intrahepatic biliary dilatation. 3. Moderate size hiatal hernia. LEM LIST Principal Problem: Intractable back pain Active Problems: Hypothyroid COPD (chronic obstructive pulmonary disease) Generalized anxiety disorder ASSESSMENT & PLAN Impression Patient of a 69-year-old female with a significant past medical history of COPD, diabetes m ellitus, chronic pain, hypothyroidism, depression and previous suicidal attempt with drug ov erdose and who comes to the ED with intractable back pain. MRI of the lumbar spine consiste nt with the multilevel degenerative disc disease with mild discogenic edema at L3 and L5-S1. There is a potential impingement of the left L5 and S1 nerve root due to degenerative murcia ges. Assessment -Lumbar back pain. Musculoskeletal in etiology. -Lower extremity weakness. Consistent with muscular the conditioning -Depression. With no current signs of suicidal ideation plan -COPD. With no signs of acute exacerbation -Diabetes mellitus. -Hypothyroidism Plan Will admit to observation unit Pain management Antiemetic therapy PT eval Duoneb when necessary for shortness of breath NovoLog sliding scale DVT GI prophylaxis CODE STATUS DNR/DNI Disposition: Observatin. DNR DNI discussed with patient Code Status: Prior Primary Care Physician: MIQUEL Newman MD 07/17/2014 documented i n this encounter ED Notes Conversion Transaction, Provider Unknown - 07/17/2014 11:55 PM PDTFormatting of this note m ight be different from the original. ED Notes by Jazzy Ronquillo RN at 07/17/142354 Author: Jazzy Ronquillo RN Service: (none) Author Type: Registered Nurse Filed: 07/17/142354 Date of Service: 07/17/142354 Status: Signed Greenskeeper Laborer: Jazzy Ronquillo RN (Registered Nurse) Pt meal provided per request at this time. Jazzy Ronquillo RN 07/17/142354 onver hiren Transaction, Provider Unknown - 07/17/2014 10:16 PM PDT ED Notes by Jazzy Ronquillo RN at 07/17/142215 Author: Jazzy Ronquillo RN Service: (none) Author Type: Registered Nurse Filed: 07/17/142215 Date of Service: 07/17/142215 Status: Signed Greenskeeper Laborer: Jazzy Ronquillo RN (Registered Nurse) Pt assisted onto bedpan at this time. Jazzy Ronquillo RN 07/17/142215 onver hiren Transaction, Provider Unknown - 07/17/2014 7:39 PM PDT ED Notes by Sanjuana Randall RN at 07/17/141938 Author: Sanjuana Randall RN Service: (none) Author Type: Registered Nurse Filed: 07/17/141942 Date of Service: 07/17/141938 Status: Signed Greenskeeper Laborer: Sanjuana Randall RN (Registered Nurse) assisted pt with bed sim, new briefs handed to pt, pt requesting pain medication due to haider k pain coming back and now radiating to left side of leg Sanjuana Randall RN 07/17/141942 onver hiren Transaction, Provider Unknown - 07/17/2014 6:19 PM PDT ED Notes by Jazzy Ronquillo RN at 07/17/141818 Author: Jazzy Ronquillo RN Service: (none) Author Type: Registered Nurse Filed: 07/17/141818 Date of Service: 07/17/141818 Status: Signed Greenskeeper Laborer: Jazzy Ronquillo RN (Registered Nurse) Report given to Morelia Ronquillo RN 07/17/141818 onver hiren Transaction, Provider Unknown - 07/17/2014 6:05 PM PDT ED Notes by Sanjuana Randall RN at 07/17/141804 Author: Sanjuana Randall RN Service: (none) Author Type: Registered Nurse Filed: 07/17/141824 Date of Service: 07/17/141804 Status: Signed Greenskeeper Laborer: Sanjuana Randall RN (Registered Nurse) Assumed care report received from Jazzy Randall RN 07/17/141824 onver hiren Transaction, Provider Unknown - 07/17/2014 5:55 PM PDT ED Notes by Jazzy Ronquillo RN at 07/17/141754 Author: Jazzy Ronquillo RN Service: (none) Author Type: Registered Nurse Filed: 07/17/141754 Date of Service: 07/17/141754 Status: Signed Greenskeeper Laborer: Jazzy Ronquillo RN (Registered Nurse) Pt placed on bedpan at this time. Jazzy Ronquillo RN 07/17/141754 onver hiren Transaction, Provider Unknown - 07/17/2014 5:55 PM PDT ED Notes by Jazzy Ronquillo RN at 07/17/141754 Author: Jazzy Ronquillo RN Service: (none) Author Type: Registered Nurse Filed: 07/17/141754 Date of Service: 07/17/141754 Status: Signed Greenskeeper Laborer: Jazzy Ronquillo RN (Registered Nurse) Pt denies reaction to valium last time she took it. Dr adair notified. Jazzy Ronquillo RN 07/17/141754 axSj koch MD - 07/17/2014 5:41 PM PDT ED Provider Notes by Sj Adair MD at 07/17/141740 Author: Sj Adair MD Service: (none) Author Type: Physician Filed: 07/17/14 2332 Date of Service: 07/17/141740 Status: Signed Greenskeeper Laborer: Sj Adair MD (Physician) [facility] Department of Emergency Medicine ED Pre-arrival Provider to Provider 07/17/2014 Provider Name Raul/[facility] Pertinent History and Concerns back pain/stenosis. intractable pain. DM.,COPD, depression, tardive dyskenesia, scoliosis. Br. CA.. coming here for MRI and possible moving up back stephanie karuna. Relevant Medications 2 mg Dilaudid IM Current Reported Vital Signs 125/72, 98.3, 83hr, 16,rr 99% History of Present Illness Kori Castañeda is a 69 y.o. female presenting with lower back pain. Patient inform ation was obtained from patient. History/Exam limitations: none. Patient presented to the Emergency Department Ambulance. Chief Complaint Patient presents with Back Pain Kori Dohertyfawthrop presents for evaluation of lower back pain. The patient has had marilyn gstanding lower back pain and apparently has had 5 epidural injections in the lower back pre viously and has had longstanding back problems. 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 Was actually scheduled to see Dr. Valdes of Neuros urgery but has not seen the provider yet. Has severe chronic pain and per her chart "over m edicates on occasion". Also has COPD, breast cancer, foot drop and "occasional bowel incont inence" and per her CT scan done in 05/25/14 the patient has "a disc bulge at L4-5 with moder ate facet arthropathy and moderate left neural foraminal stenosis at the L5-S1. Left far la teral disc osteophyte complex at this level displaced the left L5 nerve root beyond the fora men" The symptom onset was gradual over the last several years but got worse recently, and h as had a constant course. The pain is located in the lower left back and goes into the left leg, and is rated as severe. There is radiation. This is made worse by walking and is reliev ed by nothing. The patient also complains of the following additional symptoms: fatigue. T he patient denies fevers. Care prior to arrival consisted of rest with no relief. The korina ent has had these symptoms before many times and is sent here today for MRI of her spine and the Neurosurgery consultation Primary care provider: MIQUEL CALHOUN Past Medical History Diagnosis Date Chronic back pain Asthma Cancer breast Depression Diabetes mellitus, type 2 COPD (chronic obstructive pulmonary disease) Restless leg Tardive dyskinesia Other chronic pain Scoliosis Degenerative disc disease Past Surgical History Procedure Laterality Date Epidural steroid injection Hysterectomy Cholecystectomy Bladder suspension Prior to Admission medications Medication Sig Start Date End Date Taking? Authorizing Provider aspirin 81 MG EC tablet Take 1 tablet by mouth daily with breakfast. 11/19/13 11/19/14 Imani Eddy MD calcium-vitamin D (CALCITRATE) 600-400 MG-UNIT per tablet Take 1 tablet by mouth 2 (two) ti mes daily with meals. 11/19/13 11/19/14 Johnson Eddy MD fluticasone-salmeterol (ADVAIR) 250-50 MCG/DOSE Inhale 1 puff into the lungs 2 (two) times daily. 11/19/13 Johnson Eddy MD levothyroxine (SYNTHROID, LEVOTHROID) 100 MCG tablet Take 1 tablet by mouth every morning b efore breakfast. 11/19/13 11/19/14 Johnson Eddy MD Vit-Fe Fumarate-FA ( MULTIVITAMIN & MINERALS W IRON/FA) 27-0.8 MG TABS tab let Take 1 tablet by mouth daily. 11/19/13 Johnson Eddy MD ranitidine (ZANTAC) 150 MG tablet Take 1 tablet by mouth daily. 11/19/13 11/19/14 Johnson ellison MD rOPINIRole (REQUIP) 2 MG tablet Take 1 tablet by mouth 3 (three) times daily. 11/19/13 Johnson Eddy MD Allergies Allergen Reactions Ambien [Zolpidem] Other (See Comments) Unknown Ativan [Lorazepam] Other (See Comments) Unknown reaction. Has tolerated Clonazepam and Diazepam previously. 07/17/14 james Morphine Other (See Comments) Unknown. Per patient she takes hydrocodone at home, has taken tramadol without incident Prednisolone Other (See Comments) Depression/suicidal History Social History Marital Status: Spouse Name: N/A Number of Children: N/A Years of Education: N/A Occupational History Not on file. Social History Main Topics Smoking status: Never Smoker Smokeless tobacco: Never Used Alcohol Use: 1.5 - 2 oz/week 3-4 drink(s) per week Drug Use: No Sexually Active: Not Currently Other Topics Concern Not on file Social History Narrative Patient is a local resident. Patient has good social support History reviewed. No pertinent family history. Review of Systems Review of Systems Constitutional: Negative for fever and chills. Eyes: Negative for blurred vision, double vision and photophobia. Gastrointestinal: Negative for nausea. Musculoskeletal: Positive for back pain. Ten systems reviewed and otherwise negative Physical Exam BP 114/65 | Pulse 75 | Temp(Src) 98.4 F (36.9 C) (Oral) | Resp 16 | Ht 1.626 m (5' 4") | Wt 65.772 kg (145 lb) | BMI 24.88 kg/m2 | SpO2 98% Vital signs are reviewed and are luis l. Pulse Oximetry Interpretation: Normal on room air General: Alert, odd affect Eyes: Normal inspection, pupils equal and round, non-icteric ENT: Ears normal, no drainage Nose normal and no deformity Pharynx: Mucosa is normal, uvula is midline and no tonsillar enlargement Neck: Normal inspection, supple, no lymphadenopathy, no meningeal signs. Heart: Rate and rhythm normal, no murmurs, no S3/4, no extra heart sounds Respiratory: Breath sounds are normal, normal chest rise and fall, no obvious trauma Abdomen: Soft and non tender and no mass, no guarding and no rebound Skin: Color normal, no petechia or rash, warm and dry Neuro: No motor deficits, moving all extremities equally, equal director of global talent, no sensory deficit. Psych: Odd affect, no evidence of hallucinations or delusions. Not suicidal or homicidal at the time of my examination Ext: Normal reflexes in both legs Medical Decision Making and Emergency Department Course ED Department Course 17:30. Patient care initiated. This is a very nice 69-year-old female has had chronic long-standing back pain. The patien t is sent here today to write for any possible neurosurgical emergencies. Prior to calling neurosurgery we will need to obtain MRI imaging. However because she has had procedures and interventions there is the possibility (however remote) of an epidural abscess. We will CT scan both her lumbar and thoracic spine adding contrast if any abnormalities are seen on th e noncontrast images and then discuss with Dr. Anthony 21:45. Discussed the case with Dr. Anthony. There is no indication that this patient requi res any sort of emergent neurosurgical intervention. If anything the patient might require observation for pain control. This is difficult because the patient has a history of accide ntal dictation overdoses in the past. The case was discussed with the hospitalist who prashant y agreed to observe the patient overnight. Patient Vitals for the past 24 hrs: BP Temp Temp src Pulse Resp SpO2 Height Weight 07/17/14 2330 122/67 mmHg - - 76 16 95 % - - 07/17/14 2216 136/67 mmHg - - 79 16 99 % - - 07/17/14 2038 147/67 mmHg - - 85 16 98 % - - 07/17/14 1946 118/69 mmHg - - 79 18 97 % - - 07/17/14 1835 116/59 mmHg - - 77 16 97 % - - 07/17/14 1808 121/67 mmHg - - 65 18 98 % - - 07/17/14 1739 114/65 mmHg 98.4 F (36.9 C) Oral 75 16 98 % 1.626 m (5' 4") 65.772 kg (14 5 lb) The vital sings above have been reviewed prior to disposition Medications given in the Emergency Department: Medications HYDROmorphone (DILAUDID) injection 1 mg (1 mg Intravenous Given 07/17/142245) diazepam (VALIUM) injection 5 mg (5 mg Intravenous Given 07/17/141946) Records Reviewed Old medical records. Nursing notes for this Emergency Department visit were reviewed. Consultations and phone calls: Dr. Anthony Laboratory Evaluation: Results None Radiology and EKG Evaluation Imaging Results MRI L-Spine without contrast (Final result) Result time: 07/17/14 22:16:36 Final result by Rad Results In Junior (07/17/14 22:16:36) Impression: 1. Multilevel degenerative disc disease of the lumbar spine with mild discogenic edema at L3 and L5-S1. 2. There is potential impingement of the left L5 and S1 nerve root due to degenerative nidhi nges as above. 3. Reactive stress edema along the left pedicle of L5. Narrative: KORI CASTAÑEDA 1945 MRI LUMBAR SPINE WO CONTRAST 07/17/2014 9:56 PM INDICATION: Back pain COMPARISON: Plain radiographs, 11/18/13 TECHNIQUE: Imaging was performed on a 1.5 Aretha MRI system. Multiplanar sequences according to a [facility] protocol were acquired without contrast. FINDINGS: There [...] fatty atrophy of the lower paraspinous musculature. MRI T-Spine without contrast (Final result) Result time: 07/17/14 21:54:18 Final result by Rad Results In Junior (07/17/14 21:54:18) Impression: 1. There is no evidence of acute fracture of the thoracic spine. No high-grade spinal can al stenosis is present. 2. Potential intrahepatic biliary dilatation. 3. Moderate size hiatal hernia. Narrative: KORI CASTAÑEDA 1945 MRI THORACIC SPINE WO CONTRAST 07/17/2014 9:47 PM HISTORY: Back pain COMPARISON: None. TECHNIQUE: Imaging was performed on a 1.5 Aretha MRI system. Multiplanar sequences according to a [facility] protocol were acquired without contrast. FINDINGS: The bone marrow demonstrates normal signal intensity. Vertebral body heights appe ar to be maintained throughout the thoracic spine. The volume and signal intensity of the th oracic cord appears within normal limits. There is no epidural or prevertebral fluid. There is no paraspinous muscular edema. The thoracic aorta is normal in caliber. No aneurysm or di ssection is present. There is no intraspinal mass lesion. No high-grade spinal canal stenosis or neural foramina l narrowing is present. There is a dextroscoliotic curvature which is incidentally noted. Th ere is a mild disc osteophyte complex at T7-8 which results in minimal narrowing of the spin al canal. There appears to be some atelectasis along the left lower lobe. There appears to be a moder ate-sized hiatal hernia. The intrahepatic biliary system appears fairly generous which may s uggest intrahepatic biliary dilation. ED Diagnosis Final diagnosis Intractable low back pain Disposition: ED Disposition Admit/Observation Bed request special needs: None Diagnosis?: intractable back pain, NON OPERATIVE . Follow-up Information None Discharge Medications: New Prescriptions No new medications Admit decision based on need for further evaluation, additional testing, and further therap y. During this hospitalization it is my expectation that we will address her pain. Procedures Additional Documentation Procedures Sj Adair MD 07/17/14 [id number] documented in this encounter Plan of Treatment +--------+---------+ + + + | Date | Type | Specialty | Care Team | Description | +--------+---------+ + + + | 06/18/ | Office | Pain Medicine | Denys Sibley, | | | 2019 | Visit | | DO [address] | | | | | | [place] | | | | | | [id number] | | | | | | | | +--------+---------+ + + + | 06/26/ | Office | Cardiology | Monserrat Weems | | | 2019 | Visit | | [address] | | | | | | [address] | | | | | | [place] [address] | | | | | | [phone] | | | | | | | [...] | LAB | | | | Rosenda Donnelly;[place], [place] | | | | | | [address] | | | | + + + [...] [place] | | | | | | [address] | | | | + + + [...] Andrzej, | | | | | | [place] [address] | | | | + + + + + + | Non- | 4.16Comment: Testing | 3.70 - 5.10 | EXTERNAL | | | Red Blood | performed at [facility], [address] | M/uL | LAB | | | Cells | [address], | | | | | Counted | [place] [address] | | | | + + + + + + | Hemoglobin | 11.6Comment: Testing | 11.3 - 15.5 | EXTERNAL | | | | performed at [facility], [address] | g/dL | LAB | | | | [address], | | | | | | [place] [address] | | | | + + + + + + | Hematocrit, | 36.4Comment: Testing | 34.0 - 46.0 % | EXTERNAL | | | POC | performed at [facility], [address] | | LAB | | | | [address], | | | | | | [place] [address] | | | | + + + + + + | MCV | 87.5Comment: Testing | 80.0 - 100.0 fl | EXTERNAL | | | | performed at [facility], [address] | | LAB | | | | [address], | | | | | | [place] [address] | | | | + + + + + + | MCH | 27.9Comment: Testing | 27.0 - 34.0 pg | EXTERNAL | | | | performed at [facility], [address] | | LAB | | | | [address], | | | | | | [place] [address] | | | | + + + + + + | MCHC | 31.9 (L)Comment: Testing | 32.0 - 35.5 | EXTERNAL | | | | performed at [facility], [address] | g/dL | LAB | | | | [address], | | | | | | [place] [address] | | | | + + + + + + | RDW-CV | 43.8Comment: Testing | 37 - 53 fl | EXTERNAL | | | | performed at [facility], [address] | | LAB | | | | [address], | | | | | | [place] [address] | | | | + + + + + + | Platelet | 244Comment: Testing | 150 - 400 K/uL | EXTERNAL | | | Count | performed at [facility], [address] | | LAB | | | Plasma | [address], | | | | | | [place] [address] | | | | + + + + + + | MPV | 8.3Comment: Testing | fl | EXTERNAL | | | | performed at [facility], [address] | | LAB | | | | [address], | | | | | | [place] [address] | | | | + + + + + + | Differentia | AUTOMATEDComment: | | EXTERNAL | | | l Type | Testing performed at | | LAB | | | | [facility], [address] | | | | | | [place] | | | | | | [address] | | | | + + + + + + | % Segmented | 40.1Comment: Testing | % | EXTERNAL | | | | performed at [facility], [address] | | LAB | | | Neutrophils | [address], | | | | | | [place] [address] | | | | + + + + + + | % | 48.1Comment: Testing | % | EXTERNAL | | | Lymphocytes | performed at [facility], [address] | | LAB | | | | [address], | | | | | | [place] [address] | | | | + + + + + + | % Monocytes | 9.5Comment: Testing | % | EXTERNAL | | | | performed at [facility], [address] | | LAB | | | | [address], | | | | | | [place], [place] [address] | | | | + + + + + + | % | 1.9Comment: Testing | % | EXTERNAL | | | Eosinophils | performed at [facility], [address] | | LAB | | | | [address], | | | | | | [place] [address] | | | | + + + + + + | % Basophils | 0.4Comment: Testing | % | EXTERNAL | | | | performed at [facility], [address] | | LAB | | | | [address], | | | | | | [place] [address] | | | | + + + + + + | Absolute | 2.0Comment: Testing | 1.9 - 7.4 K/uL | EXTERNAL | | | Segmented | performed at [facility], [address] | | LAB | | | Neutrophils | [address], | | | | | | [place] [address] | | | | + + + + + + | Absolute | 2.4Comment: Testing | 1.0 - 3.9 K/uL | EXTERNAL | | | Lymphocytes | performed at [facility], [address] | | LAB | | | | [address], | | | | | | [place] [address] | | | | + + + + + + | Absolute | 0.5Comment: Testing | 0 - 0.8 K/uL | EXTERNAL | | | Monocytes | performed at [facility], [address] | | LAB | | | | [address], | | | | | | [place] [address] | | | | + + + + + + | Absolute | 0.1Comment: Testing | 0 - 0.5 K/uL | EXTERNAL | | | Eosinophils | performed at [facility], [address] | | LAB | | | | [address], | | | | | | [place] [address] | | | | + + + + + + | Absolute | 0.0Comment: Testing | 0 - 0.1 K/uL | EXTERNAL | | | Basophils | performed at [facility], [address] | | LAB | | | | [address] [place], | | | | | | [place] [address] | | | | + + + [...] EXTERNAL | | | | performed at [facility], [address] | uIU/mL | LAB | | | | [address], | | | | | | [place] [address] | | | | + + + [...] EXTERNAL | | | | performed at [facility], [address] | | LAB | | | | [address], | | | | | | [place] [address] | | | | + + + [...] EXTERNAL | | | | performed at [facility], [address] | | LAB | | | | [address], | | | | | | [place] [address] | | | | + + + [...] + + | Hemoglobin | 5.2Comment: The Palestinian | 4.0 - 6.0 % | EXTERNAL [...] | | | | | performed at [facility], [address] | | | | | [address] [facility], | | | | | | [place] [address] | | | | + + + [...] | | | | | performed at [facility], [address] | | | | | | [address], | | | | | | [place] [address] | | | | + + + [...] | | | Direct | performed at [facility], [address] | | LAB | | | | [address], | | | | | | [place] [address] | | | | + + + [...] | | | | | [place] [address] | | | | + + + + + + | K | 4.0Comment: Testing | 3.5 - 4.9 | EXTERNAL | | | | performed at [facility], [address] | mmol/L | LAB | | | | [address], | | | | | | [place] [address] | | | | + + + + + + | Cl | 106Comment: Testing | 99 - 109 mmol/L | EXTERNAL | | | | performed at [facility], [address] | | LAB | | | | [address], | | | | | | [place] [address] | | | | + + + + + + | CO2 | 28Comment: Testing | 23 - 32 mmol/L | EXTERNAL | | | | performed at [facility], [address] | | LAB | | | | [address], | | | | | | [place] [address] | | | | + + + + + + | Anion Gap | 8Comment: Testing | 5 - 20 mmol/L | EXTERNAL | | | | performed at [facility], [address] | | LAB | | | | [address], | | | | | | [place] [address] | | | | + + + + + + | Glucose, | 82Comment: Testing | 65 - 99 mg/dL | EXTERNAL | | | Fasting | performed at [facility], [address] | | LAB | | | | [address], | | | | | | [place] [address] | | | | + + + + + + | BUN | 18Comment: Testing | 8 - 25 mg/dL | EXTERNAL | | | | performed at [facility], [address] | | LAB | | | | [address], | | | | | | [place] [address] | | | | + + + + + + | Creatinine | 0.61Comment: Testing | 0.50 - 1.00 | EXTERNAL | | | | performed at [facility], [address] | mg/dL | LAB | | | | [address], | | | | | | [place] [address] | | | | + + + + + + | BUN/Creatin | 30Comment: Testing | | EXTERNAL | | | ine Ratio | performed at [facility], [address] | | LAB | | | | [address], | | | | | | [place] [address] | | | | + + + + + + | Calcium | 8.7Comment: Testing | 8.5 - 10.2 | EXTERNAL | | | | performed at [facility], [address] | mg/dL | LAB | | | | [address], | | | | | | [place] [address] | | | | + + + + + + | Protein, | 5.9 (L)Comment: Testing | 6.3 - 8.2 g/dL | EXTERNAL | | | Total | performed at [facility], [address] | | LAB | | | | [address], | | | | | | [place] [address] | | | | + + + + + + | Albumin | 3.7Comment: Testing | 3.3 - 4.8 g/dL | EXTERNAL | | | | performed at [facility], [address] | | LAB | | | | [address], | | | | | | [place] [address] | | | | + + + + + + | Globulin | 2.2Comment: Testing | 1.3 - 4.9 g/dL | EXTERNAL | | | | performed at [facility], [address] | | LAB | | | | [address], | | | | | | [place] [address] | | | | + + + + + + | A/G Ratio | 1.7Comment: Testing | 1.0 - 2.4 | EXTERNAL | | | | performed at [facility], [address] | | LAB | | | | [address], | | | | | | [place] [address] | | | | + + + + + + | Bilirubin | 0.3Comment: Testing | 0.1 - 1.5 mg/dL | EXTERNAL | | | Total | performed at [facility], [address] | | LAB | | | | [address], | | | | | | [place] [address] | | | | + + + + + + | ALP, | 86Comment: Testing | 35 - 115 U/L | EXTERNAL | | | External | performed at [facility], [address] | | LAB | | | | [address], | | | | | | [place] [address] | | | | + + + + + + | AST | 162 (H)Comment: Testing | 10 - 45 U/L | EXTERNAL | | | | performed at [facility], [address] | | LAB | | | | [address], | | | | | | [place] [address] | | | | + + + + + + | ALT | 112 (H)Comment: Testing | 10 - 65 U/L | EXTERNAL | | | | performed at [facility], [address] | | LAB | | | | [address], | | | | | | [place] [address] | | | | + + + [...] | | | | | | at [facility], [address] | | | | | | [address], | | | | | | [place] [address] | | | | + + + [...] | LAB | | | | [address];[place], [place] | | | | | | [address] | | | | + + + [...] Conversion - 06/15/2019 1:42 PM PDT KORI SYKESRAYSHAWNFAWTHROP1945MRI | | LUMBAR SPINE WO CONTRAST07/17/2014 9:56 [...] At | + + + | KORI GUTIERREZTYFAWTHROP 1945 MRI THORACIC SPINE WO CONTRAST | [...] Conversion - 06/15/2019 1:42 PM PDT KORI WASHBURNHRLEIGHANN1945MRI | | THORACIC SPINE WO CONTRAST07/17/2014 9:47 [...]
--- OUTSIDE RECORDS SUMMARY | ~2020-05-30 | XMS | Encounter Summary ---
Demographics + + + | Address | [address] | | | [place] [address] | + + + | Home Phone [...] Team Providers + +------+ + | Care Wedding Planning Internship Name | Role | Phone | + +------+ + | Concepción Gallardo NP | PCP | | + +------+ + Reason for Visit + +--------+ + | Reason | Onset | Comments | | | Date | | + +--------+ + | Injections | 06/21/ | | | | 2015 | | + +--------+ + Encounter Details +--------+ + + + + | Date | Type | Department | Care Team | Description | +--------+ + + + + | 06/21/ | Telephone | [facility] | [place], | Injections | | 2015 | | PHYSIATRY [address] | [address] [address] [address] | | | | | [address] | [place] [address] | | | | | [address] | [place] [address] | | | | | [address] | [phone] | | | | | [phone] | | | +--------+ + + + [...] encounter Miscellaneous Notes Telephone Encounter - Glory Toledo CMA - 06/21/2016 9:12 AM PDTPatient scheduled for . elephone Encounter - RandyChristiana - 06/21/2016 8:43 AM PDTPatient wants to schedule a follow up with sa me edison hernandez as well. She is requesting to be seen before 07/10 due to her leaving town. Please advise dojimmie disla in this encounter Plan of Treatment +--------+---------+ + + + | Date | Type | Specialty | Care Team | Description | +--------+---------+ + + + | 06/18/ | Office | Pain Medicine | Denys Sibley, | | | 2019 | Visit | | DO [address] | | | | | | [place] | | | | | | [address] | | | | | | | | +--------+---------+ + + + | 06/26/ | Office | Cardiology | Monserrat Weems | | | 2019 | Visit | | [address] | | | | | | [address] | | | | | | [place] [address] | | | | | | [phone] | | | | | | | | +--------+---------+ + + + documented as of this encounter Visit Diagnoses Not on filedocumented in this encounter"
--- OUTSIDE RECORDS SUMMARY | ~2020-05-30 | XMS | Encounter Summary ---
Demographics + + + | Address | [address] | | | [place] [address] | + + + | Home Phone [...] Team Providers + +------+ + | Care Yellow Pages Space Salesperson Name | Role | Phone | + +------+ + | Wendi Aiken | PCP | | + +------+ + Encounter Details +--------+ + + + + | Date | Type | Department | Care Team | Description | +--------+ + + + + | 05/26/ | Hospital | [facility] | Conversion | Pain | | 2018 | Encounter | CONVERSION [address] | Transaction, | | | | | [address] | Provider Unknown | | | | | [place], [place] | [phone] | | | | | [phone] | (Fax) | | | | | [phone] | | | +--------+ + + + [...] [place] | | | | | | [address] | | | | | | | | +--------+---------+ + + + | 06/26/ | Office | Cardiology | Monserrat Weems | | | 2020 | Visit | | [address] | | | | | | [address] | | | | | | [place] [address] | | | | | | [phone] | | | | | | | [...]
--- OUTSIDE RECORDS SUMMARY | ~2020-05-30 | XMS | Encounter Summary ---
Demographics + + + | Address | [address] | | | [place] [address] | + + + | Home Phone [...] Providers + +------+ + | Care Manager Acquisition Name | Role | Phone | + [...] + + | Authorized | Specialty | Pain Medicine | Diagnoses | Toñito, | Haseebagerlinda, | | | Services | | Intractable | Denys Wallis DO | DO Alfredo | | | Required | | back pain | [address] | | | | | Lumbar | [address] | [facility], | | | | | region | [place], | [place] [address] | | | | | somatic | [place] [address] | Phone: | | | | | dysfunction | Phone: | [phone] | | | | | S/P | [phone] | Fax: | | | | | insertion of | Fax: | [phone] | | | | | spinal cord | [phone] | | | | | | stimulator | | | + + + + + + + Reason for Visit + + + | Reason | Comments | + + + | Medication Follow-up | | + + + Encounter Details +--------+---------+ + + + | Date | Type | Department | Care Team | Description | +--------+---------+ + + + | 03/17/ | Office | [facility] | Denys Sibley, | Intractable back | | 2020 | Visit | [facility] | DO [address] | pain (Primary Dx); | | | | [facility] [address] | [facility] [place] | Lumbar region | | | | [address] | [id number] | somatic dysfunction; | | | | [employer], [place] | | S/P insertion of | | | | [address] | | spinal cord | | | | [phone] | | stimulator; Chronic | | | | | | [...] type; | | | | | | Chronic [...] region; | | | | | | Spinal stenosis of | | | | | | lumbosacral region; | | | | | | Degenerative lumbar | | | | | | spinal stenosis; | | | | | | Chronic pain | | | | | | disorder | +--------+---------+ + + + Social History [...] + + + | Blood Pressure | 88/49 | 03/17/2020 3:12 PM | | | | | PDT | | + + + + + | Pulse | 69 | 03/17/2020 3:12 PM | | | | | PDT | | + + + + + | Temperature | 37.1 C (98.7 F) | 03/17/2020 3:12 PM | | | | | PDT | | + + + + + | Respiratory Rate | - | - | | + + + + + | Oxygen Saturation | 97% | 03/17/2020 3:12 PM | | | | | PDT | | + + + + + | Inhaled Oxygen | - | - | | | Concentration | | | | + + + + + | Weight | 52.7 kg (116 lb 3.2 | 03/17/2020 3:12 PM | | | | oz) | PDT | | + + + + + | Height | 154.9 cm (5' 1") | 03/17/2020 3:12 PM | | | | | PDT | | + + + + + | Body Mass Index | 21.96 | 03/17/2020 3:12 PM | | | | | PDT | | + + + + + documented in this encounter Progress Notes Denys Sibley, DO - 03/17/2020 3:20 PM PDTFormatting of this note might be different fr om the original. CHRONIC PAIN VISIT Patient ID: Kori Rubio is a 74 y.o. female (: 1945). Subjective: Chronic Pain: The primary encounter diagnosis was Intractable back pain. Diagnoses of Lumbar region somat ic dysfunction, S/P insertion of spinal cord stimulator, Chronic bilateral low back pain wit h right-sided sciatica, 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, Scoliosis of lumba r spine, unspecified scoliosis type, Chronic bilateral low back pain without sciatica, Spond ylosis without myelopathy or radiculopathy, lumbosacral region, Spondylosis without myelopat hy or radiculopathy, cervical region, Spinal stenosis of lumbosacral region, Degenerative lisa mbar spinal stenosis, and Chronic pain disorder were also pertinent to this visit. Kori [...] but not limited to physical therapy, care taker, acupuncture, massage therapy, and nutritional healt h counselors. and mental health counselors as deemed necessary Today's Pain Score: 4/10. Patient states that her pain overall is unchanged on her curre nt regimen. The patient reports cold weather worsens symptoms, and moist heat and pain medic ation relieves symptoms. Additional psycho-social events since last visit include: none. T he patient's current personal goal of pain management is: " To be pain-free". Things she is doing to reach that goal include: Home exercise program. Progress toward meeting that goal has been: fair to poor. 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 Sibley 11/14/2019 PEG Pain screening tool (Pain, enjoyment, general activity) Total score: (Printable questionnaires in Moldovan ) Interpretation of Total Score: PEG scores are used to track changes over time. It should de crease after therapy has begun. Last 4 PEG Scores: No flowsheet data found. Opioid Risk Tool (ORT): Total Score Temp: 37.1 C (98.7 F) Temp Source: Oral Pulse: 69 BP: (!) 88/49 SpO2: 97 % (From Chronic Pain tab; printable questionnaires in Moldovan) Interpretation of Total Score: 0 to 3 = Low risk: 6% chance of developing problematic behav iors, 4 to 7 = Moderate risk: 28% chance of developing problematic behaviors, 8 or more = Hi gh risk: 90% chance of developing problematic behaviors. No flowsheet data found. Outpatient Morphine Equivalent Daily Dose (MEDD) 03/17/20 - 04/16/20 60 mg MEDD Order Name Dose Route [...] factor of 1 = 60 mg MEDD 04/17/20 and after None Current Outpatient Medications: ALBUTEROL IN, Inhale into the lungs., Disp: , Rfl: apixaban (ELIQUIS) 5 mg tablet, Take 1 tablet by mouth 2 times daily., Disp: 180 table t, Rfl: 3 clonazePAM (KLONOPIN) 1 mg tablet, Take 1-2 mg by mouth nightly as needed for Anxiety. , Disp: , Rfl: HYDROcodone-acetaminophen (NORCO) 10-325 mg [...] other nostril after 2 minutes). (Patient not taking: Reported on 03/17/2020), Disp: 2 each, Rfl: 1 rOPINIRole (REQUIP) 2 MG tablet, Take 2 mg by mouth 4 times daily., Disp: , Rfl: 3 Past Medical History: Diagnosis Date Acid reflux disease Acute renal failure (HCC) April 2013 Adverse effect of anesthesia hx hallucinations after anesthesia x 3 yrs ago. Anesthesia hallucinated after bladder repair Arthralgia Arthritis Asthma Asthma Back pain Cancer ([facility]) 2004 breast Cataract Cerebrovascular accident (CVA) ([facility]) no per pt Chronic back pain Chronic back pain Chronic constipation Concussion 07/2015 Preceeded by seizure Constipation COPD (chronic obstructive pulmonary disease) ([facility]) Degenerative disc disease Depression Depression Diabetes mellitus ([facility]) Diabetes mellitus, type 2 (HCC) diet controlled Diabetes type 2, controlled ([facility]) diet controlled Diarrhea Disorder of thyroid [...] lumbar spine 04/17/2014 Seizure ([facility]) one due to meds, two due [...] = Moderately Severe, 20-27 = Severe) Anxiety Scale9(5-9 = Mild, 10-14 = Moderate, 15-21 = Severe Anxiety) Additional Problems: HPI Spondylosis without myelopathy lumbosacral region, chronic bilateral low back pain, scolios is lumbar spine, foraminal stenosis lumbar region L5-S1 chronic bilateral low back pain with right-sided sciatica, status post insertion of spinal cord stimulator. Intractable back pa in, spondylosis without myelopathy, spinal stenosis lumbosacral region, degenerative lumbar spinal stenosis, History: Past Medical History: Diagnosis Date Acid reflux disease Acute renal failure (HCC) April 2013 Adverse effect of anesthesia hx hallucinations after anesthesia x 3 yrs ago. Anesthesia hallucinated after bladder repair Arthralgia Arthritis Asthma Asthma Back pain Cancer (HCC) 2004 breast Cataract Cerebrovascular accident (CVA) ([facility]) no per pt Chronic back pain Chronic back pain Chronic constipation Concussion 07/2015 Preceeded by seizure Constipation COPD (chronic obstructive pulmonary disease) ([facility]) Degenerative disc disease Depression Depression Diabetes [...] lumbar spine 04/17/2014 Seizure ([facility]) one due to meds, two due [...] and back pain. Objective: Vital Signs: BP (!) 88/49 | Pulse 69 | Temp 37.1 C (98.7 F) (Oral) | Ht 1.549 m (5' 1") | Wt 52.7 kg (116 lb 3.2 oz) | LMP (LMP Unknown) | SpO2 97% | BMI 21.96 kg/m Physical Exam 74-year-old female alert and oriented x4 no acute distress vital signs are st able bowel bladder continent no bowel issues with current medication program. Patient is afebrile. Patient has no respiratory symptoms. Patient is not traveled in [facility] in the last 8 to 10 weeks. Current medications that we give her include Robaxin 500 mg 3 times a day, [place] 10/325 1 p .o. every 4 hours as needed pain, lidocaine prior low cane cream on a as needed basis Active range of motion bilateral lower extremities upper extremities within functionless mu scle strength is 4/5. Active range of motion bilateral lower extremities within functionles s muscle strength is 4/5. Patient has difficulty rising on heels or toes. Still complains of consistent chronic low back pain primarily left-sided with left-sided radicular symptoms. Patient claims that her spinal cord stimulator is not working very well Oranyl. She tried turning it off and did not seem to make any difference. Straight leg testing is positive o n the left. Seated flexion test is positive as well. Balance sitting is good, standing is good, gait is within functional limits with assistive device. At this point in time I suggest he follow-up with interventional pain who set up the origin al spinal cord stimulator trials and plans for insertion to explain her what to expect of t equipment and if any changes are possible. Patient states [facility] with little result and benefit. Patient had plain films taken results were not available to us from the [facility] Patient return this office in 1 month reevaluation Patient demonstrates improved functional status on above [...] reviewed, listed controlled substances are consistent with [facility] prescriptions and patient reported use. Controlled Medications: no change. Refills given as appropriate for the next 1 months, and she will follow up befo re next refill is due. Recent Review Flowsheet Data There is no flowsheet data to display. Pertinent Pain History: Chronic pain related to items that appear in above HPI Helpful treatments: Moist heat and pain medication Failed treatments: Ice therapy ORT Score = 3 (0-3 = low risk, 4-7 = mod risk, 8+ = high risk) Daily Opioid Dose = [place] 10/325 1 p.o. every 4 hours as needed pain Daily Morphine Equivalent Dose (MED) = 60 mg of morphine daily Chronic benzodiazepine use: 1 Pain Agreement (date): {YES/N Visits every: Monthly Drug Screen every: Twice year Next Refill due: 30 days Follow-up: Monthly Alternative treatment modalities where discussed and offered to patient including but not l imited to physical therapy, massage therapy, acupuncture, care taker, along with niki mmended psychological counseling, either privately, or in group sessions offered by private care individuals, community services, or islam organizations. Appropriate referrals were made at patient [...] and complications with the passage of time. 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 This document has been created using [employer] software and [employer]. The entry has been reviewed for content and accuracy, but there may still exist "sound alike" station installation supervisor word errors and/or unintended additions and deletions. If there is any question please contact the author of the document: Denys Sibley DOElectrontran sig marianne by Denys Sibley DO at 03/17/2020 3:47 PM PDTdocumented in this encounter Plan of Treatment +--------+---------+ + + + | Date | Type | Specialty | Care Team | Description | +--------+---------+ + + + | 06/18/ | Office | Pain Medicine | Denys Sibley, | | | 2019 | Visit | | [address] | | | | | | [place] | | | | | | [phone] | | | | | | | | +--------+---------+ + + + | 06/26/ | Office | Cardiology | Monserrat Weems | | 2019 | Visit | | GLYNN Alaniz [address] | | | | | | [address] | | | | | | [place] [address] | | | | | | [phone] | | | | | | | | +--------+---------+ + + + + + +--------+ + + | Name | Type | Priori | Associated Diagnoses | Order Schedule | | | | ty | | | + + +--------+ + + | Ambulatory Referral | Outpatient | Routin | Intractable back | Ordered: 03/17/2020 | | to [facility] | Referral | e | pain Lumbar region | | | Clinic | | | somatic dysfunction | | | (Multi-Location) | | | S/P insertion of | | | | | | spinal cord | | | | | | stimulator | | + + +--------+ + + documented as of this encounter Visit Diagnoses + + | Diagnosis | + + | Intractable back pain - Primary Backache, unspecified | + + | Lumbar region somatic dysfunction Nonallopathic lesion of lumbar region, not | | elsewhere classified | + + | S/P insertion of spinal cord stimulator | + + | Chronic bilateral low back pain with right-sided sciatica | + + | 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 Spinal stenosis, lumbar region, | | without neurogenic claudication | + + | Scoliosis of lumbar spine, unspecified scoliosis type | + + | Chronic bilateral low back pain without sciatica | + + | Spondylosis without myelopathy or radiculopathy, lumbosacral region | + + | Spondylosis without myelopathy or radiculopathy, cervical region | + + | Spinal stenosis of lumbosacral region Spinal stenosis, lumbar region, without | | neurogenic claudication | + + | Degenerative lumbar spinal stenosis Spinal stenosis, lumbar region, without | | neurogenic claudication | + + | Chronic pain disorder Chronic pain syndrome | + + documented in this encounter
--- OUTSIDE RECORDS SUMMARY | ~2020-05-30 | XMS | Encounter Summary ---
Demographics + + + | Address | [address] | | | [place] [address] | + + + | Home Phone [...] Team Providers + +------+ + | Care Retreader Name | Role | Phone | + [...] Diagnoses | Km Acute | | | Review | Services | Services | Lumbar back | Care Fl 3 | | | | Required | | pain | [address] | | | | | | Chronic | [address] | | | | | | bilateral | [place], [place] | | | | | | low back | [address] | | | | | | pain with | Phone: | | | | | | right-sided | [phone] | | | | | | sciatica | Fax: | | | | | | | [phone] | | + + + + + [...] | | | | | | OR SURG | | | | | | | IMPLNT | | | | | | | NEUROELECT,E | | | | | | | PIDURAL OR | | | | | | | IMPLANT | | | | | | | NEUROSTIM/RE | | | | | | | CEIVER OR | | | | | | | [...] + + | 08/03/ | Hospital | [facility] | Maykel Hutchins MD | BACK PAIN, LUMBAR | | 2019 - | Encounter | [facility] | [address] | (Primary Dx); | | | | CARE FLOOR [address] | [address] [address] [place], [place] | Chronic bilateral | | 08/04/ | | [address] | [address] | low back pain with | | 2019 | | [place], [place] | | right-sided sciatica | | | | [address] | | | | | | [phone] | | | +--------+ + + + [...] might be different from t he original. [facility]. 08/04/2019 DISCHARGE SUMMARY PATIENT NAME: Kori LeighFawthrop [...] before and the morning of surgery. aka: CIRO clonazePAM 1 mg tablet Take 1-2 mg [...] by elevating your feet Date Last Reviewed: 4217-2511 [employer]. [address] [place] [address]. All righ ts reserved. This information is not intended as a substitute for professional medical care. Always follow your healthcare professional's instructions. Acetaminophen; Hydrocodone tablets or capsules Brand Names: Anexsia, Lorcet, Lorcet HD, Lorcet Plus, Lortab, [place], Verdrocet, Vicodin, Vi codin ES, Vicodin HP, [...] information carefully each time. Talk to your client business manager regarding the use of this medicine in children. Special care may be needed. What side effects may I notice from receiving this medicine? Side effects that you should report to your doctor or health critical care technician as soon as p ossible: [...] attention (report to your doctor or health critical care technician if they continue or are [...] to an official disposal site. Contact the [facility] at or your [facility] government to find a site. If [...] this medicine? Tell your doctor or health critical care technician if your pain does not [...] call your doctor or health care professi callie. Your mouth may get dry. Chewing sugarless [...] Decreased | | | | | | residential current | Responsiveness (May | | | [...] Faria MSW - 08/04/2019 2:12 PM PDTCase manager of internal audit sent out Home Health order to Kadi [...] up today to go home to [facility]. Past Medical History: Diagnosis Date Acid reflux disease Acute renal failure (HCC) April 2013 Adverse effect of anesthesia hx hallucinations after anesthesia x 3 yrs ago. Anesthesia hallucinated after bladder repair Arthralgia Arthritis Asthma Asthma Back pain Cancer ([facility]) 2004 breast Cataract Cerebrovascular accident (CVA) ([facility]) no per pt Chronic back pain Chronic back pain Chronic constipation Concussion 07/2015 Preceeded by seizure Constipation COPD (chronic obstructive pulmonary disease) ([facility]) Degenerative disc disease Depression Depression Diabetes mellitus ([facility]) Diabetes mellitus, type 2 (HCC) diet controlled Diabetes type 2, controlled ([facility]) diet controlled Diarrhea Disorder of thyroid Diverticulosis [...] of lumbar spine 04/17/2014 Seizure ([facility]) one due to meds, two due to [...] 4 mg 4 mg Oral Q6H PRN KNAG Davis rOPINIRole (REQUIP) tablet 4 mg 4 [...] To Stay over Night/general Dietvorb Julien Guzman. EBinkhuysenrn Jane Vaca RN - 08/03/2019 3:02 PM PDTPT With Pt. EBinkhuysenTremayneectronically signed by Jane Vaca RN at 08/03/2019 [...] reflux disease Acute renal failure ([facility]) April 2013 Adverse effect of anesthesia hx hallucinations after anesthesia x 3 yrs ago. Anesthesia hallucinated after bladder repair Arthralgia Arthritis Asthma Asthma Back pain Cancer ([facility]) 2004 breast Cataract Cerebrovascular accident (CVA) ([facility]) no per pt Chronic back pain Chronic back pain Chronic constipation Concussion 07/2015 Preceeded by seizure Constipation COPD (chronic obstructive pulmonary disease) ([facility]) Degenerative disc disease Depression Depression Diabetes mellitus ([facility]) Diabetes mellitus, type 2 (HCC) diet controlled Diabetes type 2, controlled ([facility]) diet controlled Diarrhea Disorder of thyroid Diverticulosis [...] Procedure: KYPHOPLASTY; Surgeon: Alfredo Casillas DO; Location: [facility]; Service: Pa in Management; Laterality: [...] level: Not on file Occupational History Occupation: [employer] Tobacco Use Smoking status: Never Smoker Smokeless [...] Paternal Uncle Heart failure Paternal Aunt Rachna hypertherm Neg Hx ROS: 12 system review [...] a walker and bedside commode Plan of Edwin - Jairo Calderon RN - 08/04/2019 2:12 [...] SCStimulator device placed. Surgeon: Maykel Hutchins MD Wind Plant Manager(s): CATHIE Earl Anesthesia: General endotrachial anesthesia Estimated [...] 08/03/2019 5:18 PM PDTReport to freddy Adames. Carlrn Plan of Jane Monet RN - 08/03/2019 4:10 PM PDTFriend Dinah At Bed side. Pt Updated With plan of care to Stay overnight and clear Liquid Diet. EBiAshlyectronically signed by Jane Vaca RN at 08/03/2019 4:29 PM PDT Plan of Jane Monet RN - 08/03/2019 3:34 PM PDTPT With Pt. Eduardronically signed by Jane Vaca RN at 08/03/2019 3:34 PM PDT Plan of Chiquita Holman PT - 08/03/2019 3:00 PM PDT [facility] Physical Therapy OPIB Plan of Care [...] Therapy Discharge Recommendations are: Recommended discharge disposition: correction facility(or home with assist) Post discharge physical [...] HOB elevated Supine to Sit, Level of [place]: modified independent Sit to Supine, Level of [place]: modified independent Impairments: strength decreased Transfers Bed-Chair, Level of [place]: minimal assist (75% patient effort) Chair-Bed, Level of [place]: minimal assist (75% patient effort) Hyc-Zkfcl-Lsi, Assistive Device: cane (straight, single point) Sit-Stand, Level of [place]: contact guard assist Stand-Sit, Level of [place]: contact guard assist Wcd-Jezvr-Mmv, Assistive Device: cane (straight, single point) Safety Issues: balance decreased during turns, step length decreased, weight-shifting abili ty decreased Impairments: strength decreased, impaired balance Gait Level of [place]: contact guard assist, minimal assist (75% patient [...] LTG Status new at 08/03/2019 1500 LTG [place] Level modified independent at 08/03/2019 1500 LTG Assistive Device cane (straight, single point) at 08/03/2019 1500 Gait Goal Most Recent Value LTG Status new at 08/03/2019 1500 LTG [place] Level modified independent at 08/03/2019 1500 LTG Assistive Device cane (straight, single point) at 08/03/2019 1500 LTG Distance (feet) 150 at 08/03/2019 1500 Stair Goal Most Recent Value LTG Status new at 08/03/2019 1500 LTG [place] Level modified independent at 08/03/2019 1500 LTG [...] Me. I Do Everything Else For Her." EBiAshlyectronically signed by Jane Vaca RN at 08/03/2019 [...] Personal Belongings At Bedside. Pt Very Sleepy. Ricaectronically signed by Jane Vaca RN at 08/03/2019 [...] [place] | | | | | | [id number] | | | | | | | | +--------+---------+ + + + | 06/26/ | Office | Cardiology | Monserrat Weems | | | 2020 | Visit | | [address] | | | | | | [address] | | | | | | [place] [address] | | | | | | [phone] | | | | | | | [...] | | | Needs | | | NEWSPAPER CLIPPER | | | reques | | | [...] | | | POC | performed at [facility];[address] | | LABORATORY | | | | [address];[place], [place] | | | | | | [address] | | | | + + + + + + + + | Specimen | + + | | + + + + + + + | Performing | Address | City/State/Zipcode | Phone Number | | Organization | | | | + + + + + | [facility] | [address] | [place] [address] | [phone] | + + + + + POC Glucose (08/03/2019 4:15 PM PDT) + + + + + + | Component | Value | Ref Range | Performed | Pathologist | | | | | At | Signature | + + + + + + | Glucose, | 99Comment: Testing | 65 - 99 mg/dL | [facility] | | | POC | performed at [facility];[address] | | LABORATORY | | | | [address];[place], [place] | | | | | | [address] | | | | + + + + + + + + | Specimen | + + | | + + + + + + + | Performing | Address | City/State/Zipcode | Phone Number | | Organization | | | | + + + + + | [facility] | [address] | [place] [address] | [phone] | + + + + + POC [...] | | | POC | performed at [facility];[address] | | LABORATORY | | | | [address];[place], [place] | | | | | | [address] | | | | + + + + + + + + | Specimen | + + | | + + + + + + + | Performing | Address | City/State/Zipcode | Phone Number | | Organization | | | | + + + + + | [facility] | [address] | [place] [address] | [phone] | + + + + + POC Glucose (08/03/2019 11:05 AM PDT) + + + + + + | Component | Value | Ref Range | Performed | Pathologist | | | | | At | Signature | + + + + + + | Glucose, | 108 (H)Comment: Testing | 65 - 99 mg/dL | [facility] | | | POC | performed at [facility];[address] | | LABORATORY | | | | [address];[place], [place] | | | | | | [address] | | | | + + + + + + + + | Specimen | + + | | + + + + + + + | Performing | Address | City/State/Zipcode | Phone Number | | Organization | | | | + + + + + | [facility] | [address] [facility] | [place] [address] | [phone] | + + + + + LINSEY [...] | | | POC | performed at [facility];[address] | | LABORATORY | | | | [address];[place] | | | | | | [address] | | | | + + + + + + + + | Specimen | + + | | + + + + + + + | Performing | Address | City/State/Zipcode | Phone Number | | Organization | | | | + + + + + | [facility] | [address] | [place] [address] | [phone] | + + + + + POC Glucose (08/03/2019 9:14 AM PDT) + + + + + + | Component | Value | Ref Range | Performed | Pathologist | | | | | At | Signature | + + + + + + | Glucose, | 80Comment: Testing | 65 - 99 mg/dL | [facility] | | | POC | performed at [facility];[address] | | LABORATORY | | | | [address];[place], [place] | | | | | | [address] | | | | + + + + + + + + | Specimen | + + | | + + + + + + + | Performing | Address | City/State/Zipcode | Phone Number | | Organization | | | | + + + + + | [facility] | [address] | [place] [address] | [phone] | + + + + + Type [...] + + + | BB BAND | [id number] | | [facility] | | | | | | LABORATORY | | + + + + + + | BB BAND | Testing performed at | | [facility] | | | | [facility];[address] | | LABORATORY | | | | [address];[place] [address] | | | | + + + + + + + + | Specimen | + + | Blood | + + + + + + + | Performing | Address | City/State/Zipcode | Phone Number | | Organization | | | | + + + + + | [facility] | [address] | [place] [address] | [phone] | + + + + + POC Glucose (08/03/2019 7:23 AM PDT) + + + + + + | Component | Value | Ref Range | Performed | Pathologist | | | | | At | Signature | + + + + + + | Glucose, | 77Comment: Testing | 65 - 99 mg/dL | [facility] | | | POC | performed at [facility];[address] | | LABORATORY | | | | [address] [facility];[place], [place] | | | | | | [address] | | | | + + + + + + + + | Specimen | + + | | + + + + + + + | Performing | Address | City/State/Zipcode | Phone Number | | Organization | | | | + + + + + | [facility] | [address] | [place] [address] | [phone] | + + + + + documented [...] | | | | | | longer, [id number] use of | | | | | [...] | | | | | | | [id number] use of at least | | | [...]
--- OUTSIDE RECORDS SUMMARY | ~2020-05-30 | XMS | Encounter Summary ---
Demographics + + + | Address | [address] | | | [place] [address] | + + + | Home Phone [...] Team Providers + +------+ + | Care Residence Hall Director Name | Role | Phone | [...] MED CTR XRAY [address] | T, MD [address] | | | | | [place] | [address] [place], [place] | | | | | [place] [address] | [address] | | | | | [phone] | | | +--------+ + + + [...] [place] | | | | | | [address] | | | | | | | | +--------+---------+ + + + | 06/26/ | Office | Cardiology | Monserrat Weems | | | 2019 | Visit | | [address] | | | | | | [address] | | | | | | [place] [address] | | | | | | [phone] | | | | | | | | +--------+---------+ + + + documented as of this encounter Visit Diagnoses Not on filedocumented in this encounter"
--- OUTSIDE RECORDS SUMMARY | ~2020-05-30 | XMS | Encounter Summary ---
Demographics + + + | Address | [address] | | | [place] [address] | + + + | Home Phone [...] + + + | Author | [facility] | + + + | Organization | [facility] | + + + | Address | Unknown | + + + | Phone | Unavailable | + + + Support + + +---------+ + | Name | Relationship | Address | Phone | + + +---------+ + | Royce Menchaca | ECON | Unknown | | + + +---------+ + Care Team Providers + +------+ + | Care Burn Nurse Name | Role | Phone | [...] for | | 2016 | | at [facility] [address] | [address] | new pt appt) | | | | [place] for | [address] [place], | | | | | Health and Healing, | [place] [address] | | | | | [facility] | [phone] | | | | | Floor [place], [place] | | | | | | [address] | | | | | | [phone] | | | +--------+ + + + [...]
--- OUTSIDE RECORDS SUMMARY | ~2020-05-30 | XMS | Encounter Summary ---
Demographics + + + | Address | [address] | | | [place] [address] | + + + | Home Phone [...] Author + + + | Author | [facility] | + + + | Organization | [facility] | + + + | Address | Unknown | + + + | Phone | Unavailable | + + + Support + + +---------+ + | Name | Relationship | Address | Phone | + + +---------+ + | Royce Menchaca | ECON | Unknown | | + + +---------+ + Care Team Providers + +------+ + | Care Care Trainer Name | Role | Phone | + +------+ + | Miquel Calhoun MD | PCP | | + +------+ + Encounter Details +--------+ + + + + | Date | Type | Department | Care Team | Description | +--------+ + + + + | 10/18/ | Telephone | [facility] | Khushbu Cortez, | | | 2012 | | [facility] | [place], [place] | | | | | [address] | [address] | | | | | [address] | | | | | | R[place], [address] [place] [address] | | | | | | [place], [place] | | | | | | [address] | | | | | | [phone] | | | +--------+ + + + [...]
--- OUTSIDE RECORDS SUMMARY | ~2020-05-30 | XMS | Encounter Summary ---
Demographics + + + | Address | [address] | | | [place] [address] | + + + | Home Phone [...] Providers + +------+ + | Care Bottom Brusher Name | Role | Phone | + [...] | | | | lumbar | [address] | DR | | | | | spinal | [address] | [facility] | | | | | stenosis | [place], [place] | [address] | | | | | | [address] | Phone: | | | | | | Phone: | [phone] | | | | | | [phone] | Fax: | | | | | | Fax: | [phone] | | | | | | [phone] | | + +--------+ + + + + Encounter Details +--------+---------+ + + + | Date | Type | Department | Care Team | Description | +--------+---------+ + + + | 08/16/ | Office | [facility] | Denys Sibley, | S/P insertion of | | 2019 | Visit | [facility] | DO [address] | spinal cord | | | | D[address] [address] | [facility] | stimulator (Primary | | | | [address] [place] | [address] | Dx); Spinal stenosis | | | | [place], [place] | | of lumbosacral | | | | [address] | | region; Intractable | | | | [phone] | | back pain; Encounter | | [...] anterior chest wall every 72 hours, and Rougon 7.5/325 1 p.o. every 6 hours as [...] Acid reflux disease Acute renal failure ([facility]) April 2013 Adverse effect of anesthesia hx hallucinations after anesthesia x 3 yrs ago. Anesthesia hallucinated after bladder repair Arthralgia Arthritis Asthma Asthma Back pain Cancer ([facility]) 2004 breast Cataract Cerebrovascular accident (CVA) ([facility]) no per pt Chronic back pain Chronic back pain Chronic constipation Concussion 07/2015 Preceeded by seizure Constipation COPD (chronic obstructive pulmonary disease) ([facility]) Degenerative disc disease Depression Depression Diabetes mellitus ([facility]) Diabetes mellitus, type 2 ([facility]) diet controlled Diabetes type 2, controlled ([facility]) diet controlled Diarrhea Disorder of thyroid Diverticulosis [...] Scoliosis of lumbar spine 04/17/2014 Seizure ([facility]) one due to meds, two due to [...] Screen 08/03/2019 NEGATIVE Final BB BAND 08/03/2019 [id number] Final BB BAND 08/03/2019 Testing performed at [facility];[address];[place] [address] Final Glucose, POC 08/03/2019 77 65 - [...] Final Antibody Screen 07/18/2019 Testing performed at [facility];[address] [place] [address];[place] [address] Final SOURCE: 07/18/2019 NARES(NOSE) Final Result 07/18/2019 [...] to physical therapy, mass age therapy, acupuncture, geriatric personal care aide, along with recommended psychological counseling , either privately, or in group sessions offered by private care individuals, community serv ices, or caodaism organizations. Appropriate referrals were made at patient [...] every 72 hours con tinue with the Rougon 10/325 1 p.o. every 6 hours as needed breakthrough pain and Robaxin 500 mg every 6 hours as needed muscle spasms Patient understands and is in full agreement with the above plan, Will return to office in 4 weeks, [facility] was consulted and appears appropriate, Urine Toxicology [...] dysfunction are noted in men and women. [facility] men will suffer erectile dysfunction with [...] and complications with the passage of time. USP use is also associated with depressions, and [...] | | | | | | [place] | | | | | | [address] | | | | | | | | +--------+---------+ + + + | 06/26/ | Office | Cardiology | Monserrat Weems | | | 2019 | Visit | | [address] | | | | | | [address] | | | | | | [place] [address] | | | | | | [phone] | | | | | | | [...]
--- OUTSIDE RECORDS SUMMARY | ~2020-05-30 | XMS | Encounter Summary ---
Demographics + + + | Address | [address] | | | [place] [address] | + + + | Home Phone [...] Team Providers + +------+ + | Care Lace Mender Name | Role | Phone | + +------+ + | Romy De La [place]az MD | PCP | | + +------+ + Encounter Details +--------+ + + + + | Date | Type | Department | Care Team | Description | +--------+ + + + + | 05/04/ | Orders Only | [facility] | Dora Ryan Jim, | | | 2017 | | CONVERSION [address] | MD [address] | [address] | | | [address] | [address] [place], [place] | | | | | [place], [place] | [address] | | | | | [address] | | | | | | [phone] | | | +--------+ + + + [...] [address] | | | | | | [place], [place] | | | | | | [address] | | | | | | | | +--------+---------+ + + + | 06/26/ | Office | Cardiology | Monserrat Weems | | | 2019 | Visit | | [address] | | | | | | [address] | | | | | | [place] [address] | | | | | | [phone] | | | | | | | [...] 0.88 m/s MV | | | Dec Laurel: 3.57 m/s2 MV DecT: 230.60 ms MV E Mark: 0.82 m/s | | | MV E/A Ratio: 0.93 MV PHT: 66.87 ms MVA By PHT: 3.28 cm2 | | | Septal e': 0.05 m/s Septal E/e': 15.05 Lateral e': 0.08 m/s | | | Lateral E/e': 9.70 RAP: 5 mmHg Packaging Sales Consultant: | | | Authenticated by: Nena Franco Report Date/Time: -- | | | [id number]:11:24 | | + + + + + [...] cmLVPWd: 0.73 cmLVOT Area: 3.03 | | [id number] Diam: 1.96 cm%FS: 33.05 %EF(Teich): 62.03 %ESV(Teich): 29.33 mlLVIDs: | | 2.79 cmSV(Teich): 47.94 mlRVIDd: 2.59 cmLAESV(A-L): 41.85 mlLAESV Index (A-L): | | 26.32 ml/m2LAAs A2C: 12.87 [id number] A-L A2C: 32.77 mlLALs A2C: 4.29 cmLAAs A4C: | | 16.44 [id number] A-L A4C: 50.32 mlLALs A4C: 4.55 cmAV maxP.92 mmHgAV meanPG: | | 4.38 mmHgAV Vmax: 1.40 m/Tisha Vmean: 0.99 m/Tisha VTI: 32.81 cmAVA Vmax: 2.11 | | cm2AVA (VTI): 2.40 bf0ARAM (Vmax): 0.00 cm2/m2AVAI (VTI): 0.00 cm2/m2LVOT maxPG: | | 3.84 mmHgLVOT meanP.47 mmHgLVSI Dopp: 49.70 ml/m2LVSV Dopp: 79.02 mlLVOT | | Vmax: 0.98 m/sLVOT Vmean: 0.75 m/sLVOT VTI: 26.05 cmMV A Mark: 0.88 m/sMV Dec | | Laurel: 3.57 m/s2MV DecT: 230.60 msMV E Mark: 0.82 m/sMV E/A Ratio: 0.93MV PHT: | | 66.87 msMVA By PHT: 3.28 fn5Gdswth e': 0.05 m/sSeptal E/e': 15.05Lateral e': | | 0.08 m/sLateral E/e': 9.70RAP: 5 mmHg Packaging Sales Consultant:Authenticated by: Nena | | [facility] Date/Time: [id number]:24 IMPRESSION: 1. This was a technically | [...] A Mark: 0.88 m/s | |MV Dec Laurel: 3.57 m/s2 | |MV DecT: 230.60 ms | |MV E Mark: 0.82 m/s | |MV E/A Ratio: 0.93 | |MV PHT: 66.87 ms | |MVA By PHT: 3.28 cm2 | |Septal e': 0.05 m/s | |Septal E/e': 15.05 | |Lateral e': 0.08 m/s | |Lateral E/e': 9.70 | |RAP: 5 mmHg | | | |Packaging Sales Consultant: | |Authenticated by: Nena Franco | |Report Date/Time: -- [id number]:24 | | | |IMPRESSION: | |1. This [...]
--- OUTSIDE RECORDS SUMMARY | ~2020-05-30 | XMS | Encounter Summary ---
Demographics + + + | Address | [address] | | | [place] [address] | + + + | Home Phone [...] Team Providers + +------+ + | Care Jewel Diameter Gauger Name | Role | Phone | + +------+ + | Wendi Aiken | PCP | | + +------+ + Reason for Visit + +--------+ + | Reason | Onset | Comments | | | Date | | + +--------+ + | Results, Imaging | 05/09/ | | | | 2018 | | + +--------+ + Encounter Details +--------+ + + + + | Date | Type | Department | Care Team | Description | +--------+ + + + + | 05/09/ | Telephone | [facility] | Nick Martinez, | Results, Imaging | | 2017 | | PHYSIATRY [address] | PA-C [address] | | | | | [address] | [address] [place] | | | | | [place] [facility], [place] | [place] [address] | | | | | [address] | [phone] | | | | | [phone] | | | +--------+ + + + [...] Miscellaneous Notes Telephone Encounter - Cheyenne Flores, Field Operations Farm Manager - 05/15/2018 9:41 AM PDTCalled p atient to relay the results of her lumbar MRI as reported by Nick. The patient was upset to hear that her compression fracture does not seem to be healing. The patient inquired what s he should be doing in concerns to treatment, upon which I reiterated that she should continu e with physical therapy and wearing her brace, as well as continue to follow up with her [facility] physician for pain management. The patient stated she does not like to take pain m edication, but has continued to do so as she is in so much pain. She also stated the pain me dication does not seem to be working. I advised the patient that she needs to follow up with her PCP concerning her pain/pain management, and discuss alterative options such a surgery with her PCP, as her PCP will need to be the provider responsible for referring her to anywh ere for potential surgery. The patient expressed understanding, stating she would call and s chedule an appointment with her PCP after she got off the phone with me. Electronically sign ed by Broderick Gaffney at 05/15/2018 10:00 AM PDTTelephone Encounter - Cheyenne Mcmahon mm, Medical Assistant - 05/15/2018 9:40 AM PDTPer Nick Martinez PA-C: Lizz, Please call patient regarding MRI. Results suggest No change in MRI since prior MRI. 25% loss in vertebral height of L5 (compr ession fracture remains the same). . Treatments I can offer include continue physical therapy and pain management with PCP. Thanks, Nick Martinez PA-C Electronically signed by Broderick Gaffney at 8 10:00 AM PDTTelephone Encounter - Sandi Tomas - 05/12/2018 11:09 AM PDTPatient called again asking results of the MRI, She was told Maycol is not in today and has not been a ble to review MRI, Maycol will be in on Tuesday the earliest he will Review her MRI results. E lectronically signed by Sandi Tomas at 05/12/2018 11:11 AM PDTTelephone Encounter - Krystin Olson - 05/11/2018 2:52 PM PDTPatient called and was wondering if Nick had re viewed her MRI from 7.10 yet. She is anxious to hear and schedule. elephone Encounter - Nick Martinez PA-C - 04/30 3:12 PM PDTOh I see, thanks for the clarification! When new images arrive I will re- read them and provide info for patient discussion. Thanks, Nick Martinez PA-C, 05/09/18 elephone Encounter - Cheyenne Flores Field Operations Farm Manager - 05/09/2018 2:44 PM PDTCalled patient who stated she had a new MRI of her Lumbar Spine completed this morning. I advised the patient that I would call and re request that the MRI be sent to our office, and that I should be able to call h er hopefully by with the results of her MRI. The patient verbalized understanding a nd was grateful for the call. elephone Encounter - Nick Martinez PA-C - 05/09/2018 2:23 PM PDTL 4/L5 broad based disk herniation, facet hypertrophy, central canal stenosis, L5 nerve root compression. L5 superior endplate has mild compression fracture approximately 10-20% loss of height. L evel of edema and dislocation suggests acute injury. New compression fx since last MRI. L5/S1: Broad-based disc bulge and significant facet hypertrophy, severe central canal chelsea nosis, exiting L5 nerve root is moderately compromised within the neural foramen. Left S1 n erve root compression also. Significant change appreciated compared to last MRI. Electronic ally signed by Nick Martinez PA-C at 05/09/2018 2:27 PM PDTTelephone Encounter - Christiana Padilla - 05/09/2018 1:06 PM PDTPatient calling to leave message that she completed MRI a t [facility] today. Images have been requested. Kori will wait for Nick to view images and wait for response. P DTdocumented in this encounter Plan of Treatment +--------+---------+ + + + | Date | Type | Specialty | Care Team | Description | +--------+---------+ + + + | 06/18/ | Office | Pain Medicine | Denys Sibley, | | | 2019 | Visit | | DO [address] | | | | | | [place] | | | | | | [address] | | | | | | | | +--------+---------+ + + + | 06/26/ | Office | Cardiology | Monserrat Weems | | | 2019 | Visit | | [address] | | | | | | [address] | | | | | | [place] [address] | | | | | | [phone] | | | | | | | | +--------+---------+ + + + documented as of this encounter Visit Diagnoses Not on filedocumented in this encounter"
--- OUTSIDE RECORDS SUMMARY | ~2020-05-30 | XMS | Encounter Summary ---
Demographics + + + | Address | [address] | | | [place] [address] | + + + | Home Phone [...] Providers + +------+ + | Care Manager Center Name | Role | Phone | + [...] | | | | Chronic low | [place], | [address] | | | | | back pain | Shay Mukherjee MD | [place], | | | | | Procedures | [address] | [place] | | | | | MRI Lumbar | [place] | [address] | | | | | Spine wo | [place], [place] | Phone: | | | | | Contrast | [address] | [phone] | | | | | | Phone: | Fax: | | | | | | [phone] | [phone] | | | | | | Fax: | | | | | | | [phone] | | +--------+--------+ + + + + [...] + + | 08/16/ | Office | [facility] | Shay Dietz | Chronic low back | | 2012 | Visit | PHYSIATRY [address] | TMD [address] | pain (Primary Dx); | | | | [address] | [place], [place] | DISC DISEASE, | | | | [place] | [address] | LUMBAR; Facet | | | | [address] | | arthritis of lumbar | | | | [phone] | | region | +--------+---------+ + + [...] the most recent injection was performed by de on 11/09/2012. She reports good relief with [...] [place] | | | | | | [address] | | | | | | | | +--------+---------+ + + + | 06/26/ | Office | Cardiology | Faustina Monserrat | | | 2020 | Visit | | [address] | | | | | | [address] | | | | | | [place] [address] | | | | | | [phone] | | | | | | | [...]
--- OUTSIDE RECORDS SUMMARY | ~2020-05-30 | XMS | Encounter Summary ---
Demographics + + + | Address | [address] | | | [place] [address] | + + + | Home Phone [...] Team Providers + +------+ + | Care Acoustical Tile Carpenters Supervisor Name | Role | Phone | + +------+ + | Wendi Aiken | PCP | | + +------+ + Reason for Visit + +--------+ + | Reason | Onset | Comments | | | Date | | + +--------+ + | Medication Question | 04/03/ | | | | 2018 | | + +--------+ + Encounter Details +--------+ + + + + | Date | Type | Department | Care Team | Description | +--------+ + + + + | 04/03/ | Telephone | [facility] | Nick Martinez, | Medication Question | | 2017 | | PHYSIATRY [address] | PA-C [address] | | | | | [address] | [address] [facility] | | | | | [place], [place] | [place] [address] | | | | | [address] | [phone] | | | | | [phone] | | | +--------+ + + + [...] Miscellaneous Notes Telephone Encounter - Cheyenne Flores, Oim Consultant - 04/04/2018 9:53 AM PDTWaiting for request to be faxed from patient's pharmacy, before this request can begin to be process ed. Thanks, Cheyenne Flores MA-C elephone Encounter - Christiana Padilla - 04/03/2018 2:41 PM PDTPatient spok e to pharmacy and was advised Rx for lidocaine (LIDODERM) 5% patch needs prior authorizatio n through insurance. Would like for someone to follow up on authorization so Rx can be picke d up. Please advise doc umented in this encounter Plan of Treatment [...] | | | | | [place] [address] | | | | | | [phone] | | | | | | | | +--------+---------+ + + + documented as of this encounter Visit Diagnoses Not on filedocumented in this encounter"
--- OUTSIDE RECORDS SUMMARY | ~2020-05-30 | XMS | Encounter Summary ---
Demographics + + + | Address | [address] | | | [place] [address] | + + + | Home Phone [...] Team Providers + +------+ + | Care Allocation Analyst Name | Role | Phone | [...] + + | 08/05/ | Emergency | [facility] | Dion Richardson | Chronic low back | | 2013 | | [facility] | Laz Richards MD | pain (Primary Dx); | | | | CENTER [address] | [address] | Weakness | | | | [place] | [place] | | | | | [address] | [address] | | | | | [phone] | | | +--------+ + + + [...] + + documented as of this encounter Lyly Herrera RN - 08/05/2014 4:20 PM PDTPt up to [facility] to void. W/o difficulty. Pt st ates she is ready to go home. Friend here to take her home. Able to stand with aid of cane. Discussed the injection and how she would feel better in a day once it dissipates. Discussed in home care provision and someone to check on her. yly Robertson RN - 08/05/2014 3:31 PM PDTPt given di maria del carmenudid. Helped to dress. Doesn't want to walk. Wants a w/c. Wants to go home. Plan to watch for 20 minutes. ion Vela MD - 08/05/2014 3:18 PM PDTFormatting of this note might be differ ent from the original. [facility] Emergency Department Encounter Note [address] [place] [address] PCP:Concepción Gallardo x2500 eMERGENCY dEPARTMENT eNCOUnter CHIEF COMPLAINT Chief Complaint Patient presents with Weakness HPI Kori Rubio is a 69 y.o. female who presents patient status post SI joint i njection by Dr. Thomas. Patient after the outpatient procedure he became weak and was luis fernando ewhat hypotensive in the waiting room. Blood pressure has responded and is adequate at this time. The patient still feels weak and doesn't feel like she is her normal self. Patient at this point feels somewhat like she is having worsening lower back pain after the injection to her back I did discuss this patient with Dr. Fan. PAST MEDICAL HISTORY Past Medical History Diagnosis [...] stress disorder) Left lumbar radiculopathy 11/01/2012 Feet SURGICAL HISTORY Past Surgical History Procedure Date Hysterectomy Cholecystectomy Cystocele repair Fracture surgery ANKLE Colonoscopy 2009 Breast surgery LUMPECTOMY Sling removal , bladder CURRENT MEDICATIONS Previous Medications ALBUTEROL 5 MG/ML NEBULIZER SOLUTION Take 2.5 mg by nebulization every 6 hours as neede d. CLONAZEPAM (KLONOPIN) 2 MG TABLET Take 2 mg by mouth Twice daily as needed. ERGOCALCIFEROL (VITAMIN D-2) 50,000 UNITS CAPSULE Take 50,000 Units by mouth Once a wee k. HYDROCODONE-ACETAMINOPHEN (NORCO) 10-325 MG PER TABLET Take 1 tablet by mouth every 6 h ours as needed. IBUPROFEN (ADVIL,MOTRIN) 600 MG TABLET Take 600 mg by mouth every 6 hours as needed. IPRATROPIUM (ATROVENT) 500 MCG/2.5 ML NEBULIZER SOLUTION Take 0.5 mg by nebulization 4 times daily. LEVOTHYROXINE (SYNTHROID, LEVOTHROID) 112 MCG TABLET Take 112 mcg by mouth every mornin g (before breakfast). LORATADINE 10 MG CAPS Take by mouth. MIRTAZAPINE (REMERON SOLTAB) 15 MG DISINTEGRATING TABLET Take 15 mg by mouth nightly. OXYCODONE (ROXICODONE) 5 MG TABLET Take 5 mg by mouth every 4 hours as needed. ROPINIROLE HCL (REQUIP XL) 6 MG TB24 Take 4.5 mg by mouth 4 times daily. TIZANIDINE (ZANAFLEX) 2 MG TABLET Take 2 mg by mouth as needed. In severe moments ALLERGIES Allergies Allergen Reactions Lorazepam Morphine Zolpidem [...] Use: Yes Comment: OCCASIONAL Drug Use: No Sexually Active: No Other Topics Concern None Social History Narrative None REVIEW OF SYSTEMS Please see HPI, All systems negative except as marked. Twelve point review of system comp leted my me. PHYSICAL EXAM VITAL SIGNS: Temp: 36.8 C (98.3 F) Pulse: 82 Resp: 14 BP: 142/67 mmHg Constitutional: Well developed, Well nourished, Non-toxic appearance. Slowed mentation ve ry lethargic. HENT: Normocephalic, Atraumatic, Bilateral external ears normal, Oropharynx moist, No oral exudates, Nose normal. Neck- Normal range of motion, No tenderness, Supple, No stridor. Eyes: PERRL, EOMI, Conjunctiva normal, No discharge. Respiratory: Normal breath sounds, No respiratory distress, No wheezing, No chest tenderne ss. Cardiovascular: Normal heart rate, Normal rhythm, No murmurs, No rubs, No gallops. GI: Bowel sounds normal, Soft, No tenderness, No masses, No pulsatile masses. : defered Musculoskeletal: Intact distal pulses, No edema, No tenderness, No cyanosis, No clubbing. Good range of motion in all major joints. No tenderness to palpation or major deformities no nighat. Back:- No tenderness. Skin: Warm, Dry, No erythema, No rash. Lymphatic: No lymphadenopathy noted. Neurologic: Alert & oriented x 3, Normal motor function, Normal sensory function, No focal deficits noted, no facial assymetry noted. Equal unemployment insurance director in all extremities patient is movin g all extremities but very slowly., Psychiatric: Affect normal, Judgment normal, Mood normal. LAB Labs Reviewed CBC WITH DIFFERENTIAL - Abnormal; Notable for the following: % Neutrophils 41.5 (*) % Lymphocytes 46.9 (*) All other components within normal limits COMPREHENSIVE METABOLIC PANEL - Abnormal; Notable for the following: GLUCOSE 110 (*) BUN 19 (*) All other components within normal limits LIPASE - Normal POC GLUCOSE - Normal TROPONIN I ED COURSE & MEDICAL DECISION MAKING Pertinent Labs & Imaging studies reviewed. (See chart for details) Nursing notes reviewed. Mother discussion with Dr. Fan regarding this, she has had these episodes of weakness in the past due to severe pain. Follow-up Information Follow up with Concepción Gallardo NP. Specialty: Family Nurse Practitioner Contact information: [address] [place] [id number] 16:01 Patient currently mentating better feeling better. Patient wants to go home. We are ambul ating her in the emergency room here at the child. Patient will go home with friend. FINAL IMPRESSION 1. Chronic low back pain 2. Weakness Portions of this chart may have been created with [employer] voice recognition software. Occasi onal wrong-word or sound-alike substitutions may have occurred due to the inherent katz itations of voice recognition software. Please read the chart carefully and recognize, using context, where these substitutions have occurred Dion Richardson MD 08/05/14 1905 Lyly Freeman RN - 08/05/2014 3:02 PM PDTPt has not been given any pain medicatio n. Repositioned on side and feels better. Reiterates that she wants to go home. Dr. Richardson aw are Lyly Freeman RN - 08/05/2014 2:55 PM PDTPt had slurred, unitelligble speech on arrival. Now is speak ing clearly and refusing the head CT. States she just woke up in here and doesn't know why s he is here. She states she has had a stroke before. States when she has pain she has these k ind of problems. Pt was in SR with HR of 76 when placed on the monitor. States when she is i n pain she gets this way. Doesn't want pain medicine. States pain scale doesn't matter. Just wants to go home. d ocumented in this encounter Miscellaneous Notes Plan of Care - ONBASE SCAN WAMT - 08/08/2014 12:00 AM PDT D Triage Notes - Nguyen Augustin RN - 08/05/2014 2:23 PM PDTP t was seen in out pt x-ray, SI joint injection with Dr. Dietz, became weak and hypotens qamar in the waiting room. documented in this encounter Plan of Treatment +--------+---------+ + + + | Date | Type | Specialty | Care Team | Description | +--------+---------+ + + + | 06/18/ | Office | Pain Medicine | Denys Sibley, | | | 2019 | Visit | | DO [address] | | | | | | [place] | | | | | | [address] | | | | | | | | +--------+---------+ + + + | 06/26/ | Office | Cardiology | Monserrat Weems | | | 2019 | Visit | | [address] | | | | | | [address] | | | | | | [place] [address] | | | | | | [phone] | | | | | | | [...] I | <0.01 | <0.06 ng/mL | [facility] | | | | | | [facility] | | | | | | MEDICAL [...] + | [facility] | [address] | [place] | [phone] | | [facility] | | [address] | | | - LABORATORY | | | | + + + + + | [facility] | [address] | [place] | | | [facility] | | [id number] | | | - LABORATORY | | [...] | | | | | | [facility] | | | | | | MEDICAL [...] + | [facility] | [address] | [place], [place] | [phone] | | [facility] | | [address] | | | - LABORATORY | | | | + + + + + | [facility] | [address] | [place] | | | [facility] | | [address] | | | - LABORATORY | | [...] | | | | mmol/L | [facility] | | | | | | MEDICAL | | | | | | CENTER - | | | | | | LABORATORY | | + + + + + + | K | 3.6 | 3.5 - 5.1 | [facility] | | | | | mmol/L | [facility] | | | | | | MEDICAL | | | | | | CENTER - | | | | | | LABORATORY | | + + + + + + | Cl | 104 | 98 - 109 mmol/L | [facility] | | | | | | [facility] | | | | | | MEDICAL | | | | | | CENTER - | | | | | | LABORATORY | | + + + + + + | CO2 | 26 | 24 - 31 mmol/L | [facility] | | | | | | [facility] | | | | | | MEDICAL | | | | | | CENTER - | | | | | | LABORATORY | | + + + + + + | Anion Gap | 7 | 3 - 16 mmol/L | [facility] | | | | | | [facility] | | | | | | MEDICAL | | | | | | CENTER - | | | | | | LABORATORY | | + + + + + + | Glucose | 110 (H) | 70 - 109 mg/dL | [facility] | | | | | | [facility] | | | | | | MEDICAL | | | | | | CENTER - | | | | | | LABORATORY | | + + + + + + | BUN | 19 (H) | 7 - 18 mg/dL | [facility] | | | | | | [facility] | | | | | | MEDICAL | | | | | | CENTER - | | | | | | LABORATORY | | + + + + + + | Creatinine | 0.75 | 0.60 - 1.30 | [facility] | | | | | mg/dL | [facility] | | | | | | MEDICAL | | | | | | CENTER - | | | | | | LABORATORY | | + + + + + + | eGFR, | >60Comment: GLOMERULAR | >=60 | [facility] | | | non- | FILTRATION | mL/min/1.73m2 | [facility] | | | Romanian | RATE,ESTIMATED | | MEDICAL | | | | mL/min/1.96f0Axld than | | CENTER - | | [...] | | | | | | [facility] | | | | | | MEDICAL | | | | | | CENTER - | | | | | | LABORATORY | | + + + + + + | Bilirubin | 0.5 | 0.1 - 1.5 mg/dL | [facility] | | | Total | | | [facility] | | | | | | MEDICAL | | | | | | CENTER - | | | | | | LABORATORY | | + + + + + + | Total | 6.4 | 6.0 - 7.8 g/dL | [facility] | | | Protein | | | [facility] | | | | | | MEDICAL | | | | | | CENTER - | | | | | | LABORATORY | | + + + + + + | AST | 19 | 10 - 42 U/L | [facility] | | | | | | [facility] | | | | | | MEDICAL [...] | | | Phosphatase | | | [facility] | | [...] | bulin Ratio | | | [facility] | | | | | | MEDICAL | | | | | | CENTER - | | | | | | LABORATORY | | + + + + + + | BUN/Creatin | 25.3 | | [facility] | | | ine Ratio | | | [facility] | | | | | | MEDICAL [...] + | [facility] | [address] | [place] | [phone] | | [facility] | | [address] | | | - LABORATORY | | | | + + + + + | [facility] | [address] | [place], [place] | | | [facility] | | [id number] [place] [address] | | | - LABORATORY | | | | + + + + + CBC with Differential (08/05/2014 2:36 PM PDT) + + + + + + | Component | Value | Ref Range | Performed | Pathologist | | | | | At | Signature | + + + + + + | White Blood | 6.0 | 4.0 - 11.0 K/uL | [facility] | | | Cells | | | [facility] | | | | | | MEDICAL | | | | | | CENTER - | | | | | | LABORATORY | | + + + + + + | Red Blood | 4.24 | 3.70 - 5.20 | [facility] | | | Cells | | M/uL | [facility] | | | | | | MEDICAL | | | | | | CENTER - | | | | | | LABORATORY | | + + + + + + | Hemoglobin | 12.3 | 11.5 - 16.0 | [facility] | | | | | g/dL | [facility] | | | | | | MEDICAL | | | | | | CENTER - | | | | | | LABORATORY | | + + + + + + | Hematocrit | 36.4 | 34.0 - 47.0 % | [facility] | | | | | | [facility] | | | | | | MEDICAL | | | | | | CENTER - | | | | | | LABORATORY | | + + + + + + | MCV | 85.8 | 83.0 - 101.0 fL | [facility] | | | | | | [facility] | | | | | | MEDICAL | | | | | | CENTER - | | | | | | LABORATORY | | + + + + + + | MCH | 29.0 | 28.0 - 35.0 pg | [facility] | | | | | | [facility] | | | | | | MEDICAL | | | | | | CENTER - | | | | | | LABORATORY | | + + + + + + | MCHC | 33.8 | 32.0 - 36.0 | [facility] | | | | | g/dL | [facility] | | | | | | MEDICAL | | | | | | CENTER - | | | | | | LABORATORY | | + + + + + + | RDW-CV | 13.8 | <15.0 % | [facility] | | | | | | [facility] | | | | | | MEDICAL | | | | | | CENTER - | | | | | | LABORATORY | | + + + + + + | Platelet | 315 | 140 - 440 K/uL | [facility] | | | Count | | | [facility] | | | | | | MEDICAL | | | | | | CENTER - | | | | | | LABORATORY | | + + + + + + | MPV | 7.7 | fL | [facility] | | | | | | [facility] | | | | | | MEDICAL | | | | | | CENTER - | | | | | | LABORATORY | | + + + + + + | % | 41.5 (L) | 45.0 - 82.0 % | [facility] | | | Neutrophils | | | [facility] | | | | | | MEDICAL | | | | | | CENTER - | | | | | | LABORATORY | | + + + + + + | % | 46.9 (H) | 20.0 - 45.0 % | [facility] | | | Lymphocytes | | | [facility] | | | | | | MEDICAL [...] | | | Eosinophils | | | [facility] | | [...] | | Neutrophils | | K/uL | [facility] | | | | | | MEDICAL | | | | | | CENTER - | | | | | | LABORATORY | | + + + + + + | Absolute | 2.80 | 0.60 - 3.20 | [facility] | | | Lymphocytes | | K/uL | [facility] | | | | | | MEDICAL | | | | | | CENTER - | | | | | | LABORATORY | | + + + + + + | Absolute | 0.50 | 0.00 - 1.00 | [facility] | | | Monocytes | | K/uL | [facility] | | | | | | MEDICAL | | | | | | CENTER - | | | | | | LABORATORY | | + + + + + + | Absolute | 0.10 | 0.00 - 0.40 | [facility] | | | Eosinophils | | K/uL | [facility] | | | | | | MEDICAL | | | | | | CENTER - | | | | | | LABORATORY | | + + + + + + | Absolute | 0.10 | 0.00 - 0.10 | [facility] | | | Basophils | | K/uL | [facility] | | | | | | MEDICAL [...] + | [facility] | [address] | [place], [place] | [phone] | | [facility] | | [address] | | | - LABORATORY | | | | + + + + + | [facility] | [address] | [place], [place] | | | [facility] | | [address], [facility] | | | - LABORATORY | | | | + + + + + POC Glucose (08/05/2014 2:23 PM PDT) + +-------+ + + + | Component | Value | Ref Range | Performed | Pathologist | | | | | At | Signature | + +-------+ + + + | Glucose, | 117 | 79 - 150 mg/dL | [facility] | | | POC | | | [facility] | | | | | | MEDICAL [...] + | [facility] | [address] | [place] | [phone] | | [facility] | | [address] | | | - LABORATORY | | | | + + + + + | [facility] | [address] | [place], [place] | | | [facility] | | [address], [facility] | | | - LABORATORY | | [...]
--- OUTSIDE RECORDS SUMMARY | ~2020-05-30 | XMS | Encounter Summary ---
Demographics + + + | Address | [address] | | | [place] [address] | + + + | Home Phone [...] Providers + +------+ + | Care Rn Ortho Name | Role | Phone | + +------+ + | Romy De La Paz MD | PCP | | + +------+ + Encounter Details +--------+ + + + + | Date | Type | Department | Care Team | Description | +--------+ + + + + | 05/19/ | Orders Only | [facility] | Denys Sibley, | Spinal stenosis of | | 2019 | | [facility] | DO [address] | lumbosacral region; | | | | [address] | [place], [place] | Lumbar region | | | | [address] | [address] | somatic dysfunction; | | | | [place], [place] | | Intractable back | | | | [address] | | pain; Degenerative | | | | [phone] | | lumbar spinal | | | [...] [address] | | | | | | [facility] | | | | | | [address] | | | | | | | | +--------+---------+ + + + | 06/26/ | Office | Cardiology | Monserrat Weems | | | 2019 | Visit | | [address] | | | | | | [address] | | | | | | [place] [address] | | | | | | [phone] | | | | | | | [...]
--- OUTSIDE RECORDS SUMMARY | ~2020-05-30 | XMS | Encounter Summary ---
Demographics + + + | Address | [address] | | | [place] [address] | + + + | Home Phone | | + + + | Preferred Language | Unknown | + + + | Marital Status | | + + + | Shinto Affiliation | 1013 | + + + | Race | Unknown | + + + | Ethnic Group | Unknown | + + + Author + + + | Author | [facility] | | | and [place] | + + + | Organization | [facility] | | | and [...] Team Providers + +------+ + | Care Injection Molding Process Technician Name | Role | Phone | + +------+ + | Wendi Aiken | PCP | | + +------+ + Reason for Visit + +--------+ + | Reason | Onset | Comments | | | Date | | + +--------+ + | Injections | 04/06/ | | | | 2018 | | + +--------+ + Encounter Details +--------+ + + + + | Date | Type | Department | Care Team | Description | +--------+ + + + + | 04/06/ | Telephone | [facility] | Shay Dietz | Injections | | 2018 | | [address]SIATRY [address] | [address] | | | | | [address] | [address] | | | | | [place] | [address] | | | | | [address] | | | | | | [phone] | | | +--------+ + + + [...] this encounter Miscellaneous Notes Telephone Encounter - Christiana Padilla - 04/06/2018 2:40 PM PDTPatient had injection to day that was cancelled due to a acute compression fracture. She would like to know what to d o in the mean time or what guidelines she needs to follow. Patient was very upset injection was cancelled and was sent away without any instructions as to what she can or cant do with fracture. Would like any information regarding compression fracture emailed to her or sent v maribell fine. Please follow up with patient.Electronically signed by Christiana Padilla at 04/2018 2:50 PM PDTdocumented in this encounter Plan of Treatment +--------+---------+ + + + | Date | Type | Specialty | Care Team | Description | +--------+---------+ + + + | 06/18/ | Office | Pain Medicine | Denys Sibley, | | | 2019 | Visit | | [address] | | | | | | [place] | | | | | | [address] | | | | | | | | +--------+---------+ + + + | 06/26/ | Office | Cardiology | Monserrat Weems | | 2019 | Visit | | [address] | | | | | | [address] | | | | | | [place] [address] | | | | | | [phone] | | | | | | | | +--------+---------+ + + + documented as of this encounter Visit Diagnoses Not on filedocumented in this encounter"
--- OUTSIDE RECORDS SUMMARY | ~2020-05-30 | XMS | Encounter Summary ---
Demographics + + + | Address | [address] | | | [place] [address] | + + + | Home Phone [...] Team Providers + +------+ + | Care Deburr Operator Name | Role | Phone | + +------+ + | Romy De La Paz MD | PCP | | + +------+ + Reason for Visit + +--------+ + | Reason | Onset | Comments | | | Date | | + +--------+ + | Medication Question | 08/06/ | | | | 2019 | | + +--------+ + Encounter Details +--------+ + + + + | Date | Type | Department | Care Team | Description | +--------+ + + + + | 08/06/ | Telephone | [facility] | Maykel Hutchins MD | Medication Question | | 2019 | | [facility] | [address] | | | | | ORTHOPEDIC SPINE | [place], [place] | | | | | [address] [facility] | [address] | | | | | [place] | | | | | | [address] | | | | | | [phone] | | | +--------+ + + + [...] Telephone Encounter - Therese Fernandez CMA - 08/06/2019 5:24 PM PDTCalled and left message with pharmacist giving the verbal okay to fill patients prescription as she was given an ad ditional rx for breakthrough pain after surgery. They may call back with any questions or co ncerns. elephone Enc Autumn Villalba - 08/06/2019 4:08 PM PDTRafal, is calling again for Medication Question and would like a call back. Additional Call Details: Elvin pharmacist from [facility] is needing a call back a t [phone] in regards to needing a Verbal to refill patients medication. elephone Encounter - Therese Fernandez CMA - 08/06/2019 3:30 PM PDTCalled patient pharmacy and they stated that I can disregard the message as patient picked up her prescription. I then called patient to manuel shaffer sure that her rx was taken care of. She stated that it had been resolved but that she wa s having issues with her bowel. She stated that last night, in the afternoon, she took X-Lax and now every time she stands, she has a bowel movement without any control. She stated dimitry t she can not feel when she goes other than when she can feel it running on her leg. She sta nighat that the stool is liquid. She has stated that she can not tell if she is also urinating. I spoke with the nurse in our office as well as the provider as patient recently underwent a SCS procedure on 08/03/19. It was stated by the provider that she needs to go to the emerg ency room to be evaluated. I spoke to the patient as well as her caregiver and the patient s tated that she will not go to the ED. She stated that she "will not go until she is waking u p from an accident in the bed. I DO NOT want to go to the ER" I stated that it was stated b y the provider that she needs to go. She refused and I stated that this is at her own discre tion but that if she feels this an emergency, to please go. She gave verbal understanding. E lectronically signed by Therese Fernandez CMA at 08/06/2019 5:21 PM PDTTelephone Encounter - [place], Keyur Suarez - 08/06/2019 12:27 PM PDTRafal, is calling regarding Medication Question and would like a call back. Additional Call Details: Calling to get approval as patient is trying to fill HydroCodone prescription early. Please call her back at [phone]. If this is a symptom based call, was patient offered triage? Not Applicable If this is a symptom based call and you were unable to immediately transfer the call to a jose m franco tape recording machine operator was caller made aware that if [...] [place] | | | | | | [address] | | | | | | | | +--------+---------+ + + + | 06/26/ | Office | Cardiology | Monserrat Weems | | | 2019 | Visit | | [address] | | | | | | [address] | | | | | | [place] [address] | | | | | | [phone] | | | | | | | | +--------+---------+ + + + documented as of this encounter Visit Diagnoses Not on filedocumented in this encounter
--- OUTSIDE RECORDS SUMMARY | ~2020-05-30 | XMS | Encounter Summary ---
Demographics + + + | Address | [address] | | | [place] [address] | + + + | Home Phone [...] | | +--------+--------+ + | Other | 04/01/ | SCREENED FOR APPT | | | 2019 | | +--------+--------+ + Encounter Details +--------+ + + + + | Date | Type | Department | Care Team | Description | +--------+ + + + + | 04/01/ | Telephone | [facility] | Miesha Jeter | Other (SCREENED FOR | | 2019 | | CARDIOLOGY DANIEL Holloway, Mobile Application Tester | APPT ) | | | | [address] | | | | | | [place], [place] | | | | | | [address] | | | | | | [phone] | | | +--------+ + + + [...] this encounter Miscellaneous Notes Telephone Encounter - Miesha Jeter, Mobile Application Tester - 04/01/2020 3:48 PM Oseas ford has confirmed their appointment and has been screened for COVID 19. Patient has received and understood directions to our office. Patient has been informed of our no visitor and masking policy. Proactive screening for upcoming office visit to help ensure the clinic environment remains a safe place to receive care. 1. Patient reports the following symptoms and/or exposure on the epidemic risk screen: ? Fever greater than 100.4 F?: no ? New onset (within the last 14 days) cough?: no ? New onset (within the last 14 days) shortness of breath?: no ? New onset (within the last 14 days) loss of taste or smell?: no ? Close contact with someone who has been diagnosed with COVID-19?: no The patient reported no symptoms or exposure and proceeded with proactive screening process . 2. Have you or someone you are in close contact with been tested for COVID-19?: No. Okay to see patient in clinic per scheduling guidelines, proceeded to question #3 3. Does the patient have MyChart Access?: Yes. Encouraged use of the E-Check In feature. 4. Is the patient allowed a visitor per policy?: Yes. Questions 1 and 2 were reviewed wit h visitor. . Please be aware that you will be [...] at different intervals throughout your v isit. While you are in the clinic 6ft distancing is required, please ensure you look for the 6ft floor markers and adhere to distancing. Visitor restrictions remain in place following CDC guidance. Only minimal exceptions will be allowed. If you arrive with a visitor they may be asked to wait in the car during your v isit. doc umented in this encounter Plan of Treatment +--------+---------+ + + + | Date | Type | Specialty | Care Team | Description | +--------+---------+ + + + | 06/18/ | Office | Pain Medicine | Denys Sibley, | | | 2019 | Visit | | [address] | | | | | | [place] | | | | | | [address] | | | | | | | | +--------+---------+ + + + | 06/26/ | Office | Cardiology | Monserrat Weems | | 2019 | Visit | | [address] | | | | | | [address] | | | | | | [place] [address] | | | | | | [phone] | | | | | | | | +--------+---------+ + + + documented as of this encounter Visit Diagnoses Not on filedocumented in this encounter"
--- OUTSIDE RECORDS SUMMARY | ~2020-05-30 | XMS | Encounter Summary ---
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 | MED CTR XRAY [address] | [address] | of lumbar region - | | | | [place] | [address] | left L5-S1; Left | | | | [place] [address] | [place] [address] | lumbar | | | | [phone] | [phone] | radiculopathy; DDD | | | | | | (degenerative disc | | | | | 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, [place]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), lumbar; | | | [...] this encounter Miscellaneous Notes Miscellaneous - WILLIAM MONTEME - 08/19/2014 12:00 AM PDT documented in this encounter [...] [place] | | | | | | [address] | | | | | | | | +--------+---------+ + + + | 06/26/ | Office | Cardiology | Monserrat Weems | | | 2019 | Visit | | [address] | | | | | | [address] | | | | | | [place] [address] | | | | | | [phone] | | | | | | | [...] radiculopathy ICD-9 Code 724.4 Kori Harshal | [facility] | | Joanne presents to the fluoroscopy suite for a | [facility] | | fluoroscopically-guided left L5-S1 transforaminal epidural [...] | | Steroid InjectionDiagnosis: Lumbar radiculopathyICD-9 Code 724.4Lamckennarichie Harshal | | Joanne presents to the [...] | + + + + + | [facility] | [address] | [place] | [phone] | | [facility] | | [address] | | | - IMAGING | | [...]
--- OUTSIDE RECORDS SUMMARY | ~2020-05-30 | XMS | Encounter Summary ---
Demographics + + + | Address | [address] | | | [place] [address] | + + + | Home Phone [...] Providers + +------+ + | Care Clay Stain Mixer Name | Role | Phone | + +------+ + | No, Physician | PCP | Unavailable | + +------+ + Encounter Details +--------+ + + + + | Date | Type | Department | Care Team | Description | +--------+ + + + + | 01/03/ | Hospital | [facility] | Shay Dietz | | | 2013 | Encounter | MED CTR XRAY [address] | [address] | | | | | [place] | [address] [place], [place] | | | | | [place] [address] | [address] | | | | | [phone] | | | +--------+ + + + [...] [place] | | | | | | [address] | | | | | | | | +--------+---------+ + + + | 06/26/ | Office | Cardiology | Monserrat Weems | | | 2019 | Visit | | [address] | | | | | | [address] | | | | | | [place] [address] | | | | | | [phone] | | | | | | | | +--------+---------+ + + + documented as of this encounter Visit Diagnoses Not on filedocumented in this encounter"
--- OUTSIDE RECORDS SUMMARY | ~2020-05-30 | XMS | Encounter Summary ---
Demographics + + + | Address | [address] | | | [place] [address] | + + + | Home Phone [...] Team Providers + +------+ + | Care Veterinary Medicine Teacher Name | Role | Phone | + +------+ + | Romy De La Paz MD | PCP | | + +------+ + Reason for Visit + +--------+ + | Reason | Onset | Comments | | | Date | | + +--------+ + | Back Pain | 08/31/ | Severe pain | | | 2019 | | + +--------+ + Encounter Details +--------+ + + + + | Date | Type | Department | Care Team | Description | +--------+ + + + + | 08/31/ | Telephone | [facility] | Denys Sibley, | Back Pain (Severe | | 2019 | | [facility] | DO [address] | pain) | | | | [address] | [place], [place] | | | | | [address] | [address] | | | | | [place], [place] | | | | | | [address] | | | | | | [phone] | | | +--------+ + + + [...] Miscellaneous Notes Telephone Encounter - Ewelina Farrar, Research Test Engine Operator - 08/31/2019 4:38 PM Soni SINGH called patient and advised her that Dr. Sibley is out of the office until after 9. If she feels like she needs to see a provider today she may contact her PCP or go into [facility] emergency dept. She states that she will try calling her PCP. She also states that she sanchez s not want to go to the emergency room, because they will think that she is only wanting [facility] e pain medication.Electronically signed by Ewelina Farrar, Research Test Engine Operator at 1 10/31/2018 4:48 PM PDTTelephone Encounter - Mai Polanco I - 08/31/2019 4:24 PM PDTLayanci , is calling regarding Back Pain (Severe pain) and would like a call back. Additional Call Details: Calling crying, states she is running a fever and has severe back pain. Has contacted and Dr Hutchins's office- Per nurse patient is to call for advice. Please call back as soon as possible. If this is a symptom based call, was patient offered triage? Not Applicable If this is a symptom based call and you were unable to immediately transfer the call to a p joan forest pathologist was caller made aware that if at any time she feels it is an emergency they sh ould call 911 or go to the nearest emergency room? yes documented in this encounter Plan of Treatment +--------+---------+ + + + | Date | Type | Specialty | Care Team | Description | +--------+---------+ + + + | 06/18/ | Office | Pain Medicine | Denys Sibley, | | | 2019 | Visit | | DO [address] | | | | | | [place] | | | | | | [address] | | | | | | | | +--------+---------+ + + + | 06/26/ | Office | Cardiology | Monserrat Weems | | | 2019 | Visit | | [address] | | | | | | [address] | | | | | | [place] [address] | | | | | | [phone] | | | | | | | | +--------+---------+ + + + documented as of this encounter Visit Diagnoses Not on filedocumented in this encounter"
--- OUTSIDE RECORDS SUMMARY | ~2020-05-30 | XMS | Encounter Summary ---
Demographics + + + | Address | [address] | | | [place] [address] | + + + | Home Phone [...] Team Providers + +------+ + | Care Post Office Manager Name | Role | Phone | [...] | | 2012 | | [facility] | [place], [place] | | | | | [address] | [address] | | | | | [address] | | | | | | [place], [address] [place] [address] | | | | | | [place], [place] | | | | | | [address] | | | | | | [phone] | | | +--------+ + + + [...]
--- OUTSIDE RECORDS SUMMARY | ~2020-05-30 | XMS | Encounter Summary ---
Demographics + + + | Address | [address] | | | [place] [address] | + + + | Home Phone [...] + + | 07/06/ | Hospital | [facility] | Spenser, | 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 | MED CTR XRAY [address] | [address] | lumbar region | | | | [place] | [address] | without myelopathy | | | | [place] [address] | [place] [address] | or radiculopathy | | | | [phone] | [phone] | (Primary Dx); | | | | | | Chronic right-sided | | | | | [employer] | low back pain with | | | | | [place] | right-sided | | | | | [...] [place] | | | | | | [address] | | | | | | | | +--------+---------+ + + + | 06/26/ | Office | Cardiology | Monserrat Weems | | 2019 | Visit | | [address] | | | | | | [address] | | | | | | [place] [address] | | | | | | [phone] | | | | | | | [...] Diagnosis: Lumbar Spondylosis ICD-10 Code M47.816 Kori Harshal | [facility] | | Joanne presents to the fluoroscopy suite for [facility] | | fluoroscopically-guided bilateral L5-S1 facet injections [...] [address] | [place] | [phone] | | [facility] | | [address] | | | - IMAGING | | [...] iohexol (OMNIPAQUE 300) 300 | Given | 07/06/20 | 2 mLs | | | | mg/mL injection 2 mL 2 mL, | | 16 11:00 | | | | | Other, ONCE, 07/06/16 at 1115, | | AM PDT | | | | | For 1 dose, Radiology | | | | | | + +--------+ +-------+------+------+ +---+---+ | | | +---+---+ + +-------+ +------+---+---+ | lidocaine 1% injection 1 mL 1 | Given | 07/06/20 | 1 mL | | | | mL, Other, ONCE, 07/06/16 at | | 16 11:03 | [...]
--- OUTSIDE RECORDS SUMMARY | ~2020-05-30 | XMS | Encounter Summary ---
Demographics + + + | Address | [address] | | | [place] [address] | + + + | Home Phone [...] Team Providers + +------+ + | Care Shrinking Machine Operator Name | Role | Phone | + +------+ + | Romy De La Paz MD | PCP | | + +------+ + Reason for Visit + +--------+ + | Reason | Onset | Comments | | | Date | | + +--------+ + | Pharmacy / Med | 11/19/ | question | | | 2020 | | + +--------+ + Encounter Details +--------+ + + + + | Date | Type | Department | Care Team | Description | +--------+ + + + + | 11/19/ | Telephone | [facility] | Denys Sibley, | Pharmacy / Med | | 2019 | | [facility] | DO [address] | (question) | | | | [address] | [place], [place] | | | | | [address] | [address] | | | | | [place], [place] | | | | | | [address] | | | | | | [phone] | | | +--------+ + + + [...] encounter Miscellaneous Notes Telephone Encounter - Ewelina Farrar Lead Setter - 11/20/2019 5:12 PM P STI called the pharmacy back. I advised that patients medications where reviewed during her last visit. 20 5:12 PM PSTTelephone Encounter - Ewelina Farrar Lead Setter - 020 2:03 PM PSTI called the [facility] back. The pharmacist is wanting to perform an over ride for the Hydrocodone because, patients insurance is wanting to verify that Dr. Belen mo is aware that patient is also taking Clonazepam 1 mg and Methocarbamol 500mg. Please advise. I will print this message for Dr. Sibley to review. elephone Encounter - Beatriz Fisher - 11/19/2019 9:26 AM PSTPharmacy, is calling regarding Pharmacy / Med (question) and would like a call back. Additional Call Details: Call back regarding over ride. If this is a symptom based call, was patient offered triage? Not Applicable If this is a symptom based call and you were unable to immediately transfer the call to a jose m franco lute packer or applier was caller made aware that if at [...] [place] | | | | | | [address] | | | | | | | | +--------+---------+ + + + | 06/26/ | Office | Cardiology | Monserrat Weems | | | 2019 | Visit | | [address] | | | | | | [address] | | | | | | [place] [address] | | | | | | [phone] | | | | | | | | +--------+---------+ + + + documented as of this encounter Visit Diagnoses Not on filedocumented in this encounter"
--- OUTSIDE RECORDS SUMMARY | ~2020-05-30 | XMS | Encounter Summary ---
Demographics + + + | Address | [address] | | | [place] [address] | + + + | Home Phone [...] Team Providers + +------+ + | Care Pocketbook Maker Name | Role | Phone | + +------+ + | Miquel Calhoun MD | PCP | | + +------+ + Reason for Visit +--------+--------+ + | Reason | Onset | Comments | | | Date | | +--------+--------+ + | Other | 07/03/ | Called patient to discuss options regarding having | | | 2012 | another injection or having a MBB or RFA | +--------+--------+ + Encounter Details +--------+ + + + + | Date | Type | Department | Care Team | Description | +--------+ + + + + | | Telephone | [facility] | Shay Dietz | Other (Called | | 2012 | | PH[address]SIATRY [address] | [address] | patient to discuss | | | | [address] | [address] [place] | options regarding | | | | [place] | [address] | having another | | | | [address] | | injection or having | | | | [phone] | | a MBB or RFA) | [...] this encounter Miscellaneous Notes Telephone Encounter - Shay Dietz MD - 07/16/2013 10:14 AM PDTThe last time I saw er she was requesting an increase of her meds. I would love to see her come off them if pos sible. Obviously we need to find other ways to control her pain. I would be happy to see er for a follow-up to discuss all these issues in detail. elephone Encounter - Phyllis Wooten RN - 07/03/2013 4:38 PM PDTCall placed to patient to discuss options regarding treating low back pain that r adiates to her left leg. Dr. Dietz stated that she could have a repeat injection or ev en a MBB, or RFA. I let the patient know her options and she had a lot of questions and ne eded a detailed explanation of the procedures and how the would benefit and relieve her pain . I told her it might be beneficial for her to have a office appointment to discuss these t reatment options. She stated that "she wants to stop taking her pain medications because the y are really affecting her life." Told patient that we would leave a note for Dr. Sushma silveira and he would decide what to do. 4: 45 PM PDTdocumented in this encounter Plan of [...] [place] | | | | | | [address] | | | | | | | | +--------+---------+ + + + | 06/26/ | Office | Cardiology | Monserrat Weems | | | 2019 | Visit | | [address] | | | | | | [address] | | | | | | [place] [address] | | | | | | [phone] | | | | | | | | +--------+---------+ + + + documented as of this encounter Visit Diagnoses Not on filedocumented in this encounter
--- OUTSIDE RECORDS SUMMARY | ~2020-05-30 | XMS | Encounter Summary ---
Demographics + + + | Address | [address] | | | [place] [address] | + + + | Home Phone [...] Team Providers + +------+ + | Care Waste Oil Pumper Name | Role | Phone | [...] | | [address] | [place] [address] | (Primary Dx); DISC | | | | [place], [place] | [phone] | DISEASE, LUMBAR; | | | | [address] | | Back pain, | | | | [phone] | | unspecified back | | | [...] [place] | | | | | | [address] | | | | | | | | +--------+---------+ + + + | 06/26/ | Office | Cardiology | Monserrat Weems | | | 2019 | Visit | | [address] | | | | | | [address] | | | | | | [place] [address] | | | | | | [phone] | | | | | | | [...]
--- OUTSIDE RECORDS SUMMARY | ~2020-05-30 | XMS | Encounter Summary ---
Demographics + + + | Address | [address] | | | [place] [address] | + + + | Home Phone [...] Providers + +------+ + | Care Supervisor [employer]iliaries Name | Role | Phone | + [...] + + | 08/16/ | Office | [facility] | Gabi Guzman | S/P insertion of | | 2019 | Visit | NEUROSCIENCE GAFFNEY | [address] | spinal cord | | | | [facility] | [address] | stimulator (Primary | | | | [address] | [place] [address] | Dx); DDD | | | | [place], [place] | [phone] | (degenerative disc | | | | [address] | | disease), lumbar; | | | | [phone] | | Facet arthritis of | | [...] on August 03, 2019 Patient ID: Kori Rubio is a 74 y.o. female who returns to the clinic today , accompanied by her friend, and the [employer] customer loyalty representative for the spinal cord stimulator, f [...] non-medical: Not on file Occupational History Occupation: [employer] Tobacco Use Smoking status: Never Smoker Smokeless [...] Alfredo Casillas DO; Location: [facility] MAIN OR; Service: Pa in Management; Laterality: N/A; L5 FRACTURE SURGERY ANKLE HERNIA REPAIR HYSTERECTOMY HYSTERECTOMY LAMINECTOMY N/A 08/03/2019 Procedure: LAMINOTOMY THORACIC / LUMBAR W/ PLACEMENT SPINAL CORD STIMULATOR; Surgeon: Suly Hutchins MD; Location: [facility] MAIN OR OTHER SURGICAL HISTORY EPIDURAL STEROID INJECTION OTHER SURGICAL HISTORY 08/28/2018 EPIDURAL STEROID INJECTION - LESI L4-L5 OTHER SURGICAL HISTORY 09/11/2018 EPIDURAL STEROID INJECTION - LESI L5-S1 OTHER SURGICAL HISTORY UNLISTED PROCEDURE ARTHROSCOPY SLING REMOVAL , BLADDER 2006 TUBAL LIGATION UPPER GASTROINTESTINAL ENDOSCOPY Past Medical History: Diagnosis Date Acid reflux disease Acute renal failure ([facility]) April 2013 Adverse effect of anesthesia [...] [facility]) Diabetes mellitus, type 2 ([facility]) diet controlled Diabetes type 2, controlled (FORMERLY [...] 3. Facet arthritis of lumbar region Ms. Rubio is progressing appropriately following the surgical procedure. [...] [place] | | | | | | [id number] | | | | | | | | +--------+---------+ + + + | 06/26/ | Office | Cardiology | Monserrat Weems | | | 2019 | Visit | | [address] | | | | | | [address] | | | | | | [place] [address] | | | | | | [phone] | | | | | | | [...]
--- OUTSIDE RECORDS SUMMARY | ~2020-05-30 | XMS | Encounter Summary ---
Demographics + + + | Address | [address] | | | [place] [address] | + + + | Home Phone [...] Team Providers + +------+ + | Care Yarn Weight And Strength Tester Name | Role | Phone | [...] + + | 08/31/ | Telephone | [facility] | Niki Pizarro, | Other (patient | | 2018 | | [address] | RN | trying to reach | | | | [address] | | Toñito's office) | | | | [place] | | | | | | [address] | | | | | | [phone] | | | +--------+ + + + [...] [place] | | | | | | [id number] | | | | | | | | +--------+---------+ + + + | 06/26/ | Office | Cardiology | Monserrat Weems | | | 2019 | Visit | | [address] | | | | | | [address] | | | | | | [place] [address] | | | | | | [phone] | | | | | | | | +--------+---------+ + + + documented as of this encounter Visit Diagnoses Not on filedocumented in this encounter"
--- OUTSIDE RECORDS SUMMARY | ~2020-05-30 | XMS | Encounter Summary ---
Demographics + + + | Address | [address] | | | [place] [address] | + + + | Home Phone [...] Team Providers + +------+ + | Care Inner Tube Inserter Name | Role | Phone | + +------+ + | Wendi Aiken | PCP | | + +------+ + Encounter Details +--------+ + + + + | Date | Type | Department | Care Team | Description | +--------+ + + + + | 10/27/ | Hospital | [facility] GENER[facility] IP | Conversion | Diagnosis unknown | | 2018 | Encounter | [address] | Transaction, | | | | | [address] | Provider Unknown | | | | | [place], [place] | | | | | | [address] | | | | | | [phone] | | | +--------+ + + + [...] [place] | | | | | | [address] | | | | | | | | +--------+---------+ + + + | 06/26/ | Office | Cardiology | Monserrat Weems | | | 2019 | Visit | | [address] | | | | | | [address] | | | | | | [place] [address] | | | | | | [phone] | | | | | | | [...]
--- OUTSIDE RECORDS SUMMARY | ~2020-05-30 | XMS | Clinical Summary ---
Demographics + + + | Address | [address] | | | [place] [address] | + + + | Home Phone | | + + + | Preferred Language | Unknown | + + + | Marital Status | Single | + + + | Scientologist Affiliation | NON | + + + [...] Providers + +------+ + | Care Deputy United [place] Marshal Name | Role | Phone | + +------+ + | Oxana Nye | PCP | | + +------+ + Source Comments RADHA is fully live on both [facility] Ambulatory and [facility] InPatient.[facility] Allergies + + + + [...] MEDICARE | MEDICA | xxxxxxxxxx | | [phone] | [address] | Medica | | | RE A & | | [phone] | [address] | | | [address] | | esent | | [place] | | | | | | | | [address] | | + +--------+ +--------+ + +--------+ | [employer] | AARP | xxxxxxxxxx | 07/01/20 | [phone] | [address] | Indemn | | RETIRED PEOPLE | | | 12-Pre | 9 | [id number] | ity | | | | | sent | | [place] | | | | | | | | [address] | | + +--------+ +--------+ + +--------+ [...] jose | | | 8 (Home) | [address] | + +--------+ +--------+ + +
--- OUTSIDE RECORDS SUMMARY | ~2020-05-30 | XMS | Encounter Summary ---
Demographics + + + | Address | [address] | | | [place] [address] | + + + | Home Phone [...] Providers + +------+ + | Care Community Administrator Name | Role | Phone | [...] | | | | | | | HI SURG | | | | | | | IMPLNT | | | | | | | NEUROELECT,E | | | | | | | PIDURAL HI | | | | | | | IMPLANT | | | | | | | NEUROSTIM/RE | | | | | | | CEIVER HI | | | | | | | [...] + + | 08/03/ | Anesthesia | [facility] | Yojana Arellano CRNA | | | 2019 | Event | [facility] | [address] | | | | | OPER[address] | [place] [address] | | | | | [address] | [phone] | | | | | [place], [place] | | | | | | [address] | | | | | | [phone] | | | +--------+ + + + + Anesthesia Record + + + + + | Procedure Name | Responsible | Anesthesia Start | Anesthesia Stop Time | | | Anesthesiologist | Time | | + + + + + | LAMINOTOMY THORACIC | Yojana ArelalnoLANE | 08/03/19926 | 08/03/19 1053 | | [...] +----+---+ + + | | 0 | [place] | | | | 9 | 43-degrees [...] 1506 by | | eral | Antecubital; [id number] | Mikayla Marcial, | Gamal Whitney | | IV | catheter system; 20 [...] EVALUATION Kori Mcintosh-Fawthrop 74 y.o. female 1945 [id number] Procedure(s) LAMINOTOMY THORACIC / LUMBAR W/ PLACEMENT [...] signed by Yojana Arellano CRNA 08/03/2019 10:58 [facility] 1 0:58 AM PDTAnesthesia Procedure Notes [...] from the original. ANESTHESIA PREANESTHESIA EVALUATION Kori Mcintosh-Fawthrop 74 y.o. female 1945 [id number] Procedure(s): LAMINOTOMY THORACIC / LUMBAR W/ PLACEMENT [...] infarct , age undetermined Abnormal ECG ECHO 2017 1. This was a technically difficult study [...] Pulmonary Disease.(-) shortness of breath. 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 (+) asthma. Gastrointestinal/Hepatic (+) acid reflux: [...] UNSPECIFIED Left lumbar radiculopathy Acute renal failure (HCC) Chronic low back pain Facet arthritis of lumbar region 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 Scoliosis of lumbar spine Cervical radiculopathy Myelopathy ([facility]) Right lumbar radiculopathy Acute alcoholic intoxication ([facility]) Acute respiratory failure ([facility]) Anemia, unspecified Anxiety state Aspiration pneumonia ([facility]) Chronic pain disorder Closed compression fracture of L5 vertebra ([facility]) Coma ([facility]) COPD (chronic obstructive pulmonary disease) ([facility]) Degenerative lumbar spinal stenosis Depression with suicidal ideation Encounter for long-term use of opiate analgesic Gait difficulty History of oral aphthous ulcers Hypotension, unspecified Hypothyroid Impaired mobility and ADLs Intervertebral disc disorders with radiculopathy, lumbosacral region Metabolic acidosis Other shock ([facility]) Overdose of muscle relaxant Palpitations Peripheral vertigo [...] 10:57 AM PDT ANESTHESIA HANDOFF NOTE Kori Torresty-Fawthrop 74 y.o. female 1945 [id number] LAMINOTOMY THORACIC / LUMBAR W/ PLACEMENT SPINAL [...] receiving team. Yojana Arellano CRNA 08/03/2019 10:57 [facility] 1 0:58 AM PDTdocumented in this [...] [place] | | | | | | [address] | | | | | | | | +--------+---------+ + + + | 06/26/ | Office | Cardiology | Monserrat Weems | | | 2019 | Visit | | [address] | | | | | | [address] | | | | | | [place] [address] | | | | | | [phone] | | | | | | | [...] - 08/03/2019 9:52 AM PDT Anesthesia Airway Kpxeiuodl40/4/2019 | | 9:33Preprocedure check: patient identified, oxygen, [...]
--- OUTSIDE RECORDS SUMMARY | ~2020-05-30 | XMS | Clinical Summary ---
Demographics + + + | Address | [address] | | | [place] [address] | + + + | Home Phone [...] Team Providers + +------+ + | Care Pediatric Urologist Name | Role | Phone | + [...] | | 19 | | | | residential current | [...] tablet | times daily. | | | 020 | | e | | | | [...] | | + + + +---------+------+------+-------+ | warfarin | Take 1 tablet by | 30 | 11 | 06/0 | 06/0 | Activ | | (COUMADIN) 5 mg | mouth Daily. | tablet | | 4/20 | 4/20 | e | | tablet | | | | 20 | 21 | | + + + +---------+------+------+-------+ | pramipexole | TAKE 1 TABLET BY | | 0 | 06/1 | | Activ | | (MIRAPEX) 0.5 MG | MOUTH EVERY DAY AT | | | 5/20 | | e | | tablet | BEDTIME FOR 30 DAYS | | | 20 | | | + + + +---------+------+------+-------+ | fluticasone | USE 1 SPRAY(S) IN | | 0 | 06/1 | | Activ | | (FLONASE) 50 | EACH NOSTRIL TWICE | | | 5/20 | | e | | mcg/nasal spray | DAILY FOR 30 DAYS | | | 20 | | | + + + +---------+------+------+-------+ | methocarbamol | Take 500 mg by mouth | 120 | 3 | 03/31 | | Activ | | (ROBAXIN) 500 mg | 4 (four) times | tablet | | 04/19 | | e | | tabletIndications: | [...] affected | 5800 g | 3 | 03/31 | 03/31 | Activ | | lidocaine-prilocaine | area 2 or 3 times a | | | 04/19 | 04/19 | e | | (EMLA) | day [...] tablet by | 180 | 0 | 07/2 | 08/1 | Activ | | HYDROcodone-acetamin | mouth every 4 hours | tablet | | 0/20 | 9/20 | e | | ophen (NORCO) 10-325 [...] | | + + + +---------+------+------+-------+ | alendronate | TAKE 1 TABLET BY | | 0 | 07/0 | | Activ | | (FOSAMAX) 70 mg | MOUTH ONCE A WEEK | | | 6/20 | | e | | tablet | | | | 20 | | | + + + +---------+------+------+-------+ | rOPINIRole | TAKE 1 2 TABLET BY | | 0 | / | | Activ | | (REQUIP) 4 mg tablet | MOUTH IN THE MORNING | | | 20 | | e | | | TAKE 1 2 TABLET BY | | | 20 | | | | | MOUTH IN THE AFTER | | | | | | | | NOON AND TAKE 1 | | | | | | | | TABLET BY MOUTH AT | | | | | | | | NIGHT | | | | | | + + + +---------+------+------+-------+ | | Take 1 tablet by | 180 | 0 | / | 07/2 | Disco | | HYDROcodone-acetamin | mouth every 4 hours | tablet | | 6/20 | 0/20 | ntinu | | ophen (NORCO) 10-325 | as needed for Pain | | | 20 | 20 | ed | | mg per | for up to 30 days. | | | | | (Reor | | tabletIndications: | | | | | | peter | | Spinal stenosis of | | | | | | (no | | lumbosacral region, | | | | | | Cance | | Lumbar region | | | | | | l Rx | | somatic dysfunction, | | | | | | msg)) | | Intractable back | | | [...] Overview: Added automatically from request for surgery [id number] | + + + + + | Spondylosis without myelopathy or radiculopathy, lumbosacral | 03/20/2019 | | region | | + + + + + | Overview: Added automatically from request for surgery [id number] | + + + + + | Chronic bilateral low back pain without sciatica | 03/20/2019 | + + + + + | Overview: Added automatically from request for surgery [id number] | + + + + + | Intervertebral disc disorders with radiculopathy, lumbosacral | 02/25/2019 | | region | | + + + + + | Overview: Added automatically from request for surgery [id number] | + + + + + | Chronic low back pain with sciatica | 02/25/2019 | + + + + + | Overview: Added automatically from request for surgery [id number] | + + + + + | Lumbar region somatic dysfunction | 02/25/2019 | + + + + + | Overview: Added automatically from request for surgery [id number] | + + + + + | Strain of lumbar region | 02/25/2019 | + + + + + | Overview: Added automatically from request for surgery [id number] | + + + + + | Spinal stenosis of lumbosacral region | 02/25/2019 | + + + + + | Overview: Added automatically from request for surgery [id number] | + + + + + | [...] Overview: Added automatically from request for surgery [id number] | | Problem List 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 Technician/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 Utility | + + + + + [...] | | + +---+ + + | Sunday: LOUISE [id number] Decision | + + + +---+ | [...] + + + + | 05/19/ | Office | Pain Medicine | Denys [...] | | | | subsequent encounter | +--------+ + + + + | 05/19/ | Orders Only | Pain Medicine | Denys Sibley, | Spinal stenosis of | | 2019 | | | DO | lumbosacral region; | | | | | | Lumbar region | | | | | | somatic dysfunction; | | | | | | Intractable back | | | | | | pain; Degenerative | | | | | | lumbar spinal | | | | | | stenosis; Chronic | | | | | | pain disorder | +--------+ + + + + | 04/15/ | Hospital | Radiology | Alfredo Casillas DO | Intractable back | | 2019 | Encounter | | | pain; Lumbar region | | | | | | somatic dysfunction; | | | | | | Foraminal [...] + + + + | 04/15/ | Office | Pain Medicine | Alfredo Casillas DO | Intractable back | | 2020 | Visit | | | pain (Primary Dx); | | | | | | Lumbar region | | | | | | somatic dysfunction; | | | | | | Foraminal [...] + + + + | 04/15/ | Office | Pain Medicine | Denys [...] + | 04/15/ | Orders Only | Pain Medicine | Denys Sibley, | Spinal stenosis of | | 2019 | | | DO | lumbosacral region; | | | | | | Lumbar region | | | | | | somatic dysfunction; | | | | | | Intractable back | | | | | | pain; Degenerative | | | | | | lumbar spinal | | | | | | stenosis; Chronic | | | | | | pain disorder | +--------+ + + + + | 04/14/ | Telephone | Pain Medicine | Alfredo Casillas DO | Screening For | | 2019 | | | | Communicable Disease | +--------+ + + + + | 04/11/ | Telephone | Pain Medicine | Alfredo Casillas DO | Appointment | | 2019 | | | | | +--------+ + + + + | 04/03/ | Office | Cardiology | Zuleyka Castillo DO | Paroxysmal atrial | | 2019 | Visit | | | fibrillation (HCC) | | | | | | (Primary Dx) | +--------+ + + + + | 04/01/ | Telephone | Cardiology | Miesha Jeter | Yehuda (SCREENED FOR | | 2019 | | | D, Product Examiner | APPT ) | +--------+ + + + + | 03/27/ | Telephone | Cardiology | Miesha Jeter | Other (Patient can't | | 2020 | | | Jewel, Product Examiner | bharat Romero ) | +--------+ + + + + | 03/17/ | Office | Pain Medicine | Denys Sibley, | Intractable back | | 2020 | Visit | | DO | pain (Primary Dx); | | | | | | Lumbar region | | | | | | somatic dysfunction; | | | | | | S/P insertion of | | | | | | spinal cord | | | | | | stimulator; Chronic | | | [...] | | | | | disorder | +--------+ + + + + | 03/14/ | Telephone | Pain Medicine | Denys Sibley, | Appointment | | 2019 | | | DO | | +--------+ + + + + | 02/27/ | Office | Cardiology | Zuleyka Castillo DO | Palpitations | | 2019 | Visit | | | (Primary Dx); | | | | | | Paroxysmal atrial | | | | | | fibrillation (HCC) | +--------+ + + + + from [...] + + | Brother | | | [place] | | | | (Age | | [...] [place] | | | | | | [address] | | | | | | | | +--------+---------+ + + + | 06/26/ | Office | Cardiology | Monserrat Weems | | | 2020 | Visit | | [address] | | | | | | [address] | | | | | | [place] [address] | | | | | | [phone] | | | | | | | | +--------+---------+ + + + + + + + + | Health Maintenance | Due Date | Last | Comments | | | | Done | | + + + + + | Hepatitis C | | | | | Screening | 7 | | | + + + + + | Medication | | | | | Management | 7 | | | + + [...] + + | Colorectal Cancer | | 11/19/19 | | | Screening (FIT) | 5 | 14 | | + + + + + | Adult Annual | | | | | Wellness Visit | 5 | | | + + + + + | Statin Therapy | | | | | (optimal intensity) | 5 | | | + + + + + | Med Mgmt: TSH | | 06/23/20 | | | | 9 | 18, | | | | | 07/18/20 | | | | | 14, | | | | | 11/18/19 | | | | | 14 | | + + + + + | Urine Drug Screening | | 06/23/20 | | | | 9 | 18 | | + + + + + | Med Mgmt: INR | | 07/18/20 | | | | 9 | 19, | | | | | 04/25/20 | | | | | 17, | | | | | 11/14/19 | | | | | 14 | | + + + + + | Vaccine: Influenza | | | | | (#1) | 0 | | | + + + + + | Med Mgmt: Cr | | 07/18/20 | | | | 0 | 19, | | | | | 06/23/20 | | | | | 18, | | | | | 06/07/20 | | | | | 18, | | | | | Addition | | | | | al | | | | | history | | | | | exists | | + + + + + | Med Mgmt: eGFR | | 07/18/20 | | | | 0 | 19, | | | | | 06/23/20 | | | | | 18, | | | | | 06/07/20 | | | | | 18, | | | | | Addition | | | | | al | | | | | history | | | | | exists | | + + + + + | Vaccine: | Completed | 07/18/20 | | | Pneumococcal 65+ | | 14 | | + + [...] | | 03/04/ | [id number] | | [id number]: Qty: 1 | ogical | Spine | MEDICAL - | | 2020 | S | | on 08/03/2019 by Cuong, | | Lumbar | STJU | | | /[id number] | | MD [facility] | Stimul | | | | | 444 | | [facility] | ator | | | | | [...] | | 11/23/ | [id number] | | [id number]: Qty: 1 on | | | MEDICAL - | | 2020 | S | | 03/28/2019 by Sonja, | | | STJU | | | /[id number] | | DO Alfredo | | | | | | 330 / | + +--------+--------+ +--------+--------+--------+ | Proclaim 5 EliteImplanted: | | N/A: | [facility] | | 01/15/ | [id number] | | Qty: 1 on 08/03/2019 by Cuong, | | Spine | MEDICAL - | | 2020 | /[id number] | | MD [facility] at [facility] | | Lumbar | STJU | | | 6.1 | | [facility] | | | | | | /NA | + +--------+--------+ +--------+--------+--------+ Procedures + +--------+ + + + | Procedure Name | Priori | Date/Time | Associated Diagnosis | Comments | | | ty | | | | + +--------+ + + + | XR THORACOLUMBAR | Routin | 04/15/2020 | Intractable back | Results for this | | JUNCTION 2+ VIEWS | e | 9:32 AM | pain Lumbar region | procedure are in the | | | | PDT | somatic dysfunction | results section. | | | | | Foraminal stenosis | | | | | | of lumbar region - | | | | | | left L5-S1 | | | | | | Scoliosis of lumbar | | | | | | spine, unspecified | | | | | | scoliosis type | | | | | | Chronic bilateral | | | | | | low back pain | | | | | | without sciatica | | | | | | Spondylosis without | | | | | | myelopathy or | | | | | | radiculopathy, | | | | | | lumbosacral region | | + +--------+ + + + | ECG - EXTERNAL SCAN | | 03/05/2020 | | Results for this | | | | 12:00 AM | | procedure are in the | | | | PDT | | results section. | + +--------+ + + + | ECG - EXTERNAL SCAN | | 03/05/2020 | | Results for this | | | | 12:00 AM | | procedure are in the | | | | PDT | | results section. | + +--------+ + + + | IMAGING REPORT - | | 03/05/2020 | | Results for this | | EXTERNAL SCAN | | 12:00 AM | | procedure are in the | | | | PDT | | results section. | + +--------+ + + + | DIAGNOSTIC REPORT - | | 03/05/2020 | | Results for this | | [...] + + from Last 3 Months Results XR Thoracolumbar Junction 2+ Views (04/15/2020 9:32 AM PDT) + + | Specimen | + + | | + + + + + | Impressions | Performed At | + + + | 1. Spinal cord stimulator leads are intact. The electrode array is | [facility] | | positioned in the posterior aspect of the canal at the T8 and T9 | | | levels. 2. Lumbar levoscoliosis with a Salguero angle of approximately 31 | | | degrees from L1 through L4. 3. Vertebroplasty cement seen at L5. | | | Signed by: River Andersen Edward Sign Date/Time: | | | 04/15/2020 10:28 AM | | + + + + + + | Narrative | Performed At | + + + | THORACOLUMBAR SPINE CLINICAL INFORMATION: Stimulator | [facility] | | placement. COMPARISON: MRI THORACIC SPINE WO CONTRAST | | | (07/17/2014); FINDINGS: Alignment: A 31 degree lumbar | | | levoscoliosis is seen from L1 through L4 with the apex of convexity | | | at the L2-L3 disc space. Vertebrae: Bridging osteophytes are | | | fusing the left sides of the mid to lower thoracic vertebral bodies | | | from T8 through L1. Vertebroplasty cement is seen in the L5 | | | vertebral body using a right transpedicular approach. Disc | | | Levels: Asymmetric disc space narrowing is seen along the right sides | | | of the disc spaces in the lumbar spine due to the lumbar | | | levoscoliosis. Surgical changes: A spinal cord stimulator is seen | | | implanted in the soft tissues right flank at the level of the top of | | | the iliac crest. The leads are on broken and extend into the spinal | | | canal. The electrode array spans the T8 and T9 vertebral body | | | levels. Facets and Posterior Spinal Elements: Posterior arches and | | | facets are somewhat poorly visualized due to the scoliosis but | | | appear grossly intact. | | + + + + + | Procedure Note | + + | Reji Pacheco Results In - 04/15/2020 10:31 AM PDT | | THORACOLUMBAR SPINE | | | | CLINICAL INFORMATION: | | Stimulator placement. | | | | COMPARISON: | | MRI THORACIC SPINE WO CONTRAST (07/17/2014); | | | | FINDINGS: | | Alignment: A 31 degree lumbar levoscoliosis is seen from L1 through L4 | | with the apex of convexity at the L2-L3 disc space. | | | | Vertebrae: Bridging osteophytes are fusing the left sides of the mid to | | lower thoracic vertebral bodies from T8 through L1. Vertebroplasty | | cement is seen in the L5 vertebral body using a right transpedicular | | approach. | | | | Disc Levels: Asymmetric disc space narrowing is seen along the right | | sides of the disc spaces in the lumbar spine due to the lumbar | | levoscoliosis. | | | | Surgical changes: A spinal cord stimulator is seen implanted in the | | soft tissues right flank at the level of the top of the iliac crest. | | The leads are on broken and extend into the spinal canal. The | | electrode array spans the T8 and T9 vertebral body levels. | | | | Facets and Posterior Spinal Elements: Posterior arches and facets are | | somewhat poorly visualized due to the scoliosis but appear grossly | | intact. | | | | IMPRESSION: | | 1. Spinal cord stimulator leads are intact. The electrode array is | | positioned in the posterior aspect of the canal at the T8 and T9 levels. | | 2. Lumbar levoscoliosis with a Salguero angle of approximately 31 degrees | | from L1 through L4. | | 3. Vertebroplasty cement seen at L5. | | | | | | | | | | Signed by: River Andersen Edward | | Sign Date/Time: 04/15/2020 10:28 AM | + + + +---------+ + + | Performing | Address | City/State/Zipcode | Phone Number | | Organization | | | | + +---------+ + + | [facility] | | | | + +---------+ + + IMAGING REPORT - EXTERNAL SCAN (03/05/2020 12:00 AM PDT) + + + | Narrative | Performed At | + + + | Ordered by an | | | unspecified provider. | | + + + DIAGNOSTIC REPORT - EXTERNAL SCAN (03/05/2020 12:00 AM PDT) + + + | Narrative | Performed At | + + + | Ordered by an | | | unspecified provider. | | + + + ECG - EXTERNAL SCAN (03/05/2020 12:00 AM PDT)Only the most recent of 2 results within the t charleen period is included. + + + | Narrative | Performed At | + + + | Ordered by an | | | unspecified provider. | | + + + ECG 12 lead (02/28/2020 1:16 PM PDT) [...] MD | | | | | | ([id number]) on 03/04/2020 | | | | | [...] +---------+--------+ | INDIVIDUAL ASSURANCE | INDIVI | [id number] | | | | Indemn | | [...] +--------+ +---------+--------+ | MEDICARE | MEDICA | [id number] | | [phone] | | Medica | | | RE | | 991-Pr | 5 | | re | | | PART A | | esent | | | | | | AND B | | | | | | + +--------+ +--------+ +---------+--------+ | MEDICARE | MEDICA | [id number] | | [phone] | | Medica | | | RE | | 991-Pr | 5 | | re | | | PART A | | esent | | | | | | AND B | | | | | | + +--------+ +--------+ +---------+--------+ | MEDICARE | MEDICA | [id number] | | [phone] | | Medica | | | RE | | 991-Pr | 5 | | re | | | PART A | | esent | | | | | | AND B | | | | | | + +--------+ +--------+ +---------+--------+ | MEDICARE | MEDICA | [id number] | | [phone] | | Medica | | | RE | | 991-Pr | 5 | | re | | | PART A | | esent | | | | | | AND B | | | | | | + +--------+ +--------+ +---------+--------+ | INDIVIDUAL ASSURANCE | INDIVI | [id number] | | | | Indemn | | [...] +---------+--------+ | INDIVIDUAL ASSURANCE | INDIVI | [id number] | | | | Indemn | | [...] +---------+--------+ | INDIVIDUAL ASSURANCE | INDIVI | [id number] | | | | Indemn | | [...] [address] | | mandeep Caputo | al/Benji | | 1945 | [phone] | [place] | | | jose | | | 8 (Home) | [phone] | + +--------+ +--------+ + + | Ibeth Rubiou | Person | Self | [birth year] | [address] | | mandeep H[place] | al/Fam | | 1945 | [phone] | [place], [place] | | | jose | | | 8 (Home) | [address] | + +--------+ +--------+ + + | Ibeth Rubiou | Person | Self | [birth year] | [address] | | mandeep Harshal | al/Fam | | 1945 | [phone] | [place] [address] | | | jose | | | 8 (Home) | | + +--------+ +--------+ + + | Tyrese Rubio | Person | Self [birth year] | [address] | | mandeep H[place] | al/Fam | | 1945 | [phone] | [place], [place] | | | jose | | | 8 (Home) | [phone] | + +--------+ +--------+ + + Advance Directives + + + + + | Type | Date Recorded | Patient | Explanation | | | | Electrician Chief | | + + + + + | Power of | | | | | Footwear Stitcher | | | | + + + [...]
--- OUTSIDE RECORDS SUMMARY | ~2020-05-30 | XMS | Encounter Summary ---
Demographics + + + | Address | [address] | | | [place] [address] | + + + | Home Phone [...] Team Providers + +------+ + | Care Plater Hot Dip Name | Role | Phone | + [...] + + | 04/02/ | Emergency | [facility] | Kvng Bennett, | Acute stress | | 2017 | | [facility] | MD [address] | reaction (Primary | | | | CENTER [address] | [place] | Dx) | | | | [place] | [id number] | | | | | [address] | | | | | | [phone] | | | +--------+ + + + [...] documented as of this encounter ED Notes Kvng Bennett MD - 04/02/2017 8:17 PM PDTFormatting of this note might be different fro m the original. eMERGENCY dEPARTMENT eNCOUnter CHIEF COMPLAINT Chief Complaint Patient presents with Anxiety Dehydration HPI Kori Rubio is a 71 y.o. female who presents with severe anxiety. She walk ed in on her aunt who raised her and found her dad [facility]. She collapsed to th e ground and is been too anxious and upset to walk since then. Ambulance was called who bro ught her in. She's had no fever, cough, diarrhea, chest pain, or any other associated sympt oms. She is very emotionally distraught. PAST MEDICAL HISTORY Past Medical History: Diagnosis Date Acute renal [...] leg syndrome Scoliosis of lumbar spine 04/17/2014 SURGICAL HISTORY Past Surgical History: Procedure Laterality Date BREAST SURGERY LUMPECTOMY CHOLECYSTECTOMY COLONOSCOPY 2009 CYSTOCELE REPAIR FRACTURE SURGERY ANKLE HYSTERECTOMY SLING REMOVAL , BLADDER CURRENT MEDICATIONS Previous Medications ALBUTEROL 5 MG/ML NEBULIZER SOLUTION Take 2.5 mg by nebulization every 6 hours as neede d. AMLODIPINE (NORVASC) 5 MG TABLET Take 5 mg by mouth Daily. CLONAZEPAM (KLONOPIN) 2 MG TABLET Take 1 mg by mouth Twice daily as needed. HYDROCODONE-ACETAMINOPHEN (NORCO) 10-325 MG PER [...] Take 4.5 mg by mouth as needed. ALLERGIES Allergies Allergen Reactions Lorazepam Morphine Zolpidem FAMILY HISTORY Family History Problem Relation Age of Onset Diabetes Mother Arthritis Mother Heart disease Mother Kidney disease Mother of kidney failure at 55. Cancer Sister Lung cancer Father at the age of 42. Alcohol abuse Father SOCIAL HISTORY Social History Social History Marital status: Spouse name: N/A Number of children: N/A Years of education: N/A Social History Main Topics Smoking status: Never Smoker Smokeless tobacco: Never Used Alcohol use Yes Comment: OCCASIONAL Drug use: No Sexual activity: No Other Topics Concern None Social History Narrative None REVIEW OF SYSTEMS All systems reviewed and negative except as noted on HPI and/or limited by patient conditio n PHYSICAL EXAM VITAL SIGNS: Temp: 36.9 C (98.5 F) Pulse: 85 Resp: 18 SpO2: 99 % BP: 161/80 Constitutional: Well developed, Well nourished, No acute distress, Non-toxic appearance. HENT: Normocephalic, Atraumatic, Oropharynx moist, No oral exudates, Nose normal. Neck- No rmal range of motion, No tenderness, Supple, No stridor. Eyes: PERRL, EOMI, Conjunctiva normal, No discharge. Respiratory: Normal breath sounds, No wheezing, No chest tenderness. Cardiovascular: Normal S1, S2 GI: nondistended, nontender : not done Musculoskeletal: Intact distal pulses, No edema ,Integument: Warm, Dry, No erythema, No rash. EKG Not done RADIOLOGY No results found. Medications Administered Ativan, saline ED COURSE & MEDICAL DECISION MAKING Last Set of Vital Signs: Temp: 36.9 C (98.5 F) Pulse: 85 Resp: 18 SpO2: 99 % BP: 161/80 Pertinent Labs, Nurses Note, & Imaging studies reviewed. (See chart for details) This is a 71-year-old female with an acute stress reaction. She's been given IV fluids and some Clonazepam. The plan will be for her to go home when she feels better. FINAL IMPRESSION Acute stress reaction LABS FROM THIS VISIT OR MOST RECENT ER VISIT: Results for orders placed or performed during the hospital encounter of 08/05/14 CBC with Differential Result Value Ref Range WBC 6.0 4.0 - 11.0 K/uL RBC 4.24 3.70 - 5.20 M/uL Hgb 12.3 11.5 - 16.0 g/dL Hct 36.4 34.0 - 47.0 % MCV 85.8 83.0 - 101.0 fL MCH 29.0 28.0 - 35.0 pg MCHC 33.8 32.0 - 36.0 g/dL RDW-CV 13.8 <15.0 % Platelet Count 315 140 - 440 K/uL MPV 7.7 fL % Neutrophils 41.5 (L) 45.0 - 82.0 % % Lymphocytes 46.9 (H) 20.0 - 45.0 % % Monocytes 8.7 4.0 - 12.0 % % Eosinophils 2.0 0.0 - 5.0 % % Basophils 0.9 0.0 - 1.0 % Absolute Neutrophils 2.50 1.80 - 8.50 K/uL Absolute Lymphocytes 2.80 0.60 - 3.20 K/uL Absolute Monocytes 0.50 0.00 - 1.00 K/uL Absolute Eosinophils 0.10 0.00 - 0.40 K/uL Absolute Basophils 0.10 0.00 - 0.10 K/uL Comprehensive Metabolic Panel Result Value Ref Range NA 137 136 - 149 mmol/L K 3.6 3.5 - 5.1 mmol/L CL 104 98 - 109 mmol/L CO2 26 24 - 31 mmol/L ANION GAP 7 3 - 16 mmol/L GLUCOSE 110 (H) 70 - 109 mg/dL BUN 19 (H) 7 - 18 mg/dL Creatinine, Serum/Plasma 0.75 0.60 - 1.30 mg/dL eGFR if not >60 >=60 mL/min/1.73m2 CALCIUM 9.0 8.3 - 10.5 mg/dL ALBUMIN 3.8 3.2 - 5.0 g/dL BILIRUBIN TOTAL 0.5 0.1 - 1.5 mg/dL Total protein 6.4 6.0 - 7.8 g/dL AST 19 10 - 42 U/L ALT 15 6 - 45 U/L ALK PHOS 68 40 - 110 U/L GLOBULIN 2.6 g/dL Albumin/Globulin ratio 1.5 BUN/CREA 25.3 Lipase Result Value Ref Range LIPASE 22 0 - 60 U/L Troponin I Result Value Ref Range Troponin I <0.01 <0.06 ng/mL POC Glucose Result Value Ref Range Glucose, POC 117 79 - 150 mg/dL Kvng Bennett MD 04/02/172023 Kvng Bennett MD 04/02/172048 Kvng Bennett MD 04/02/172056 documented in this en counter Miscellaneous Notes ED Triage Notes - Kassidy Wynn RN - 04/02/2017 7:15 PM PDTPatient was brought in by a friend. Patient walked into a [facility] members [facility] at [facility] and found her . Haris ruiz is distraught. Possibly dehydrated.Electronically signed by Kassidy Wynn RN a t 04/02/2017 7:17 PM PDTdocumented in this encounter Plan of [...] [place] | | | | | | [address] | | | | | | | | +--------+---------+ + + + | 06/26/ | Office | Cardiology | Monserrat Weems | | | 2019 | Visit | | [address] | | | | | | [address] | | | | | | [place] [address] | | | | | | [phone] | | | | | | | [...]
--- OUTSIDE RECORDS SUMMARY | ~2020-05-30 | XMS | Clinical Summary ---
Demographics + + + | Address | [address] | | | [place] [address] | + + + | Home Phone | | + + + | Preferred Language | Unknown | + + + | Marital Status | Single | + + + | Judaism Affiliation | NON | + + + [...] Team Providers + +------+ + | Care Petrophysical Engineer Name | Role | Phone | + +------+ + | Oxana Nye | PCP | | + +------+ + Source Comments RAD[facility] is fully live on both [facility] and [facility] Allergies + + + + [...] | | | | | | | [address] | | + +--------+ +--------+ + +--------+ | [employer] | [employer] | [phone] | 07/01/20 | [phone] | [address] | Indemn | | [employer] | | | 12-Pre | 9 | [id number] | ity | | | | | sent | | [place] | | | | | | | | [address] | | + +--------+ +--------+ + +--------+ [...] [place] | | | 8 (Home) | [id number] | + +--------+ +--------+ + +
--- OUTSIDE RECORDS SUMMARY | ~2020-05-30 | XMS | Encounter Summary ---
Demographics + + + | Address | [address] | | | [place] [address] | + + + | Home Phone [...] Providers + +------+ + | Care Fire Control Officer Name | Role | Phone [...] | [facility] | [place], [place] | | | | | [address] | [address] | | | | | [address] | | | | | | [place], [address] [place] [address] | | | | | | [place], [place] | | | | | | [address] | | | | | | [phone] | | | +--------+ + + + [...]
--- OUTSIDE RECORDS SUMMARY | ~2020-05-30 | XMS | Encounter Summary ---
Demographics + + + | Address | [address] | | | [place] [address] | + + + | Home Phone [...] Providers + +------+ + | Care Clinical Biochemist Name | Role | Phone | + +------+ + | Wendi Aiken | PCP | | + +------+ + Encounter Details +--------+ + + + + | Date | Type | Department | Care Team | Description | +--------+ + + + + | 05/26/ | Hospital | [facility] [place] [place] [facility] | Conversion | Pain | | 2018 | Encounter | CONVERSION [address] | Transaction, | | | | | [address] | Provider Unknown | | | | | [place], [place] | [phone] | | | | | [address] | (Fax) | | | | | [phone] | | | +--------+ + + + [...] [place] | | | | | | [id number] | | | | | | | | +--------+---------+ + + + | 06/26/ | Office | Cardiology | Monserrat Weems | | | 2019 | Visit | | [address] | | | | | | [address] | | | | | | [place] [address] | | | | | | [phone] | | | | | | | [...]
--- OUTSIDE RECORDS SUMMARY | ~2020-05-30 | XMS | Encounter Summary ---
Demographics + + + | Address | [address] | | | [place] [address] | + + + | Home Phone [...] Providers + +------+ + | Care Director Market Research Name | Role | Phone | + +------+ + | Romy De La Paz MD | PCP | | + +------+ + Reason for Visit + +--------+ + | Reason | Onset | Comments | | | Date | | + +--------+ + | Advice Only | 07/05/ | | | | 2019 | | + +--------+ + | Other | 07/05/ | inform office | | | 2018 | | + +--------+ + Encounter Details +--------+ + + + + | Date | Type | Department | Care Team | Description | +--------+ + + + + | 07/05/ | Telephone | [facility] | Makyel Hutchins MD | Advice Only; Other | | 2018 | | NE[facility]ENTER | [address] | (inform office) | | | | ORTHOPEDIC SPINE | [address] [place], [place] | | | | | [address] | [address] | | | | | [place], [place] | | | | | | [address] | | | | | | [phone] | | | +--------+ + + + [...] this encounter Miscellaneous Notes Telephone Encounter - Sj Marino - 07/09/2019 11:02 AM PDTLaurie, is returning call fo r Advice Only and Other (inform office) and would like a call back. Additional Call Details: Returning call. Call: [phone] elephone Encounter - Makenzie Hurley CMA - 07/09/2019 10:16 AM PDTReturn phone call to patient no answer to leave message to call back. I will have Julien look at XR to review results. elephone Encounter - Greyson Noe - 07/09/2019 9:32 AM PDTLaurie, is calling again for Advice Only and Other (inform office) and would like a call back. Additional Call Details: Calling to inform the office she completed her x-ray orders. elephone Encounter - Niki Pizarro RN - 07/06/2019 12:03 PM PDTSpoke with patient. Informed her x-ray order f or lumbar and thoracic spine has been placed. Patient would like orders faxed [facility]. Patient stated that she has another fall. Advised if pain is severe patient should go to ER for evaluation. Informed patient to call clinic after x-rays complete so images can reviewed. Kori verbalized understanding. Orders faxed to [phone]. 12:1 3 PM PDTTelephone Encounter - Autumn Fuentes - 07/06/2019 11:15 AM PDTKori, is calling again for Advice Only and would like a call back. Additional Call Details: Patient would like a call back roscoe due to her pain. Patient stat ed that it's getting worse & wants to know where/when she can have her imaging done. elephone Encounter - France Stewart - 07/06/2019 8:11 AM PDTKori, is calling again for Advice Only and would like a call back. Additional Call Details: Requesting to speak with medical claims representative regarding her talking to provider about having imaging done due to the falls she's been having. elephone Encoun Julien Gibson ARNP - 07/05/2019 2:18 PM PDTTypically she goes to her PCP and gets thes e imaging. We can schedule x-ray thoracic and lumbar AP/Lat to see if there are any fracture . elephone Encounter - Reece Cardona Junior Analyst - 07/05/2019 12:33 PM PDTReturned patient call, she stated she fell 5 days ago and hit her head on the cement. She stated she did not go to the ED bec ause she felt fine, she fell again on Tuesday and has had severe back pain, difficultly walk ing and standing. She states she has been icing and heating to control the pain along with h er pain medication and is requesting new imaging due to the amount of pain she is in. She fe els like something is broken, she was advised to go to the ED the next time she has a fall a nd verbalized understanding. She will await a phone call if imaging is approved by doctor. Patient is scheduled for a Thoracic laminotomy and SCS on 08/03/19 elephone Encounter - Carlos Marino - 07/05/2019 8:51 AM PDTLayanci, is calling regarding Advice Only and would like a call back. Additional Call Details: Calling to report falls and injury to shoulder and back. Pain has gotten worse and inquiring if imaging may be necessary. Call: [phone] If this is a symptom based call, was patient offered triage? Not Applicable If this is a symptom based call and you were unable to immediately transfer the call to a jose m franco clinical educator was caller made aware that if at [...] F | | | | | | [place] [address] | | | | | | [phone] | | | | | | | [...]
--- OUTSIDE RECORDS SUMMARY | ~2020-05-30 | XMS | Encounter Summary ---
Demographics + + + | Address | [address] | | | [place] [address] | + + + | Home Phone | | + + + | Preferred Language | Unknown | + + + | Marital Status | Single | + + + | Baptist Affiliation | NON | + + + [...] Providers + +------+ + | Care Oil And Gas Exploration Technician Name | Role | Phone | + +------+ + | Oxana Nye | PCP | | + +------+ + Encounter Details +--------+ + + + + | Date | Type | Department | Care Team | Description | +--------+ + + + + | 03/30/ | MyChart | Cardiology General | Airam Fuchs MD | RE: Heart monitor | | 2015 | Encounter | at [facility] [address] | [address] | | | | | [facility] for | [address] [place], | | | | | Health and Healing, | [place] [address] | | | | | [facility] | [phone] | | | | | Floor [place], [place] | | | | | | [address] | | | | | | [phone] | | | +--------+ + + + [...]
--- OUTSIDE RECORDS SUMMARY | ~2020-05-30 | XMS | Encounter Summary ---
Demographics + + + | Address | [address] | | | [place] [address] | + + + | Home Phone [...] Providers + +------+ + | Care Web Site Designer Name | Role | Phone | [...] + + | 06/28/ | Telephone | [facility] | Shay Dietz | Other (To discuss | | 2012 | | PHYSIATRY [address] | T[address] | pain log reponse) | | | | [address] | [address] [place], [place] | | | | | [place], [place] | [address] | | | | | [address] | | | | | | [phone] | | | +--------+ + + + [...] pt and left message on answering janel quiroz to call Dr. Dietz's office back regarding [...] [place] | | | | | | [address] | | | | | | | | +--------+---------+ + + + | 06/26/ | Office | Cardiology | Monserrat Weems | | 2019 | Visit | | [address] | | | | | | [address] | | | | | | [place] [address] | | | | | | [phone] | | | | | | | | +--------+---------+ + + + documented as of this encounter Visit Diagnoses Not on filedocumented in this encounter"
--- OUTSIDE RECORDS SUMMARY | ~2020-05-30 | XMS | Encounter Summary ---
Demographics + + + | Address | [address] | | | [place] [address] | + + + | Home Phone [...] Team Providers + +------+ + | Care Accounting/Finance Tutor Name | Role | Phone | + [...] | Telephone | [facility] [place] | Connietwyla Shay | Other | | 2012 | | PHYSIATRY [address] | T, [address] | | | | | [address] | [address] [place], [place] | | | | | [place], [place] | [address] | | | | | [address] | | | | | | [phone] | | | +--------+ + + + [...] [place] | | | | | | [address] | | | | | | | | +--------+---------+ + + + | 06/26/ | Office | Cardiology | Monserrat Weems | | | 2019 | Visit | | [address] | | | | | | [address] | | | | | | [place] [address] | | | | | | [phone] | | | | | | | | +--------+---------+ + + + documented as of this encounter Visit Diagnoses Not on filedocumented in this encounter"
--- OUTSIDE RECORDS SUMMARY | ~2020-05-30 | XMS | Encounter Summary ---
Demographics + + + | Address | [address] | | | [place] [address] | + + + | Home Phone [...] Providers + +------+ + | Care Waste Reclaimer Name | Role | Phone | + [...] low | J Luis, | [address] | | | | | back pain | Shay Mukherjee MD | [place], | | | | | Lumbar | [address] | [place] | | | | | radiculopath | [place] | [address] | | | | | y | [place], [place] | Phone: | | | | | Procedures | [address] | [phone] | | | | | MRI Lumbar | Phone: | Fax: | | | | | Spine wo | [phone] | [phone] | | | | | Contrast | Fax: | | | | | | MRI | [phone] | | +--------+--------+ + + + + Encounter Details +--------+ + + + + | Date | Type | Department | Care Team | Description | +--------+ + + + + | 03/07/ | Orders Only | [facility] [place] | Shay Dietz | Chronic low back | | 2014 | | PHYSIATRY [address] | T, [address] | pain (Primary Dx); | | | | [address] | [place], [place] | Lumbar radiculopathy | | | | [place], [place] | [address] | | | | | [address] | | | | | | [phone] | | | +--------+ + + + [...] | 2019 | Visit | | [address] | | | | | | [place] | | | | | | [address] | | | | | | | | +--------+---------+ + + + | 06/26/ | Office | Cardiology | Monserrat Weems | | | 2019 | Visit | | [address] | | | | | | [address] | | | | | | [place] [address] | | | | | | [phone] | | | | | | | [...] + | MISCELLANEOUS LAB | | | [phone] | + +---------+ + + | MISCELANIOUS LAB | | | [phone] | + +---------+ + + documented in this encounter Visit Diagnoses + + | Diagnosis | + + | Chronic low back pain - Primary Lumbago | + + | Lumbar radiculopathy Thoracic or lumbosacral neuritis or radiculitis, unspecified | + + documented in this encounter"
--- OUTSIDE RECORDS SUMMARY | ~2020-05-30 | XMS | Encounter Summary ---
Demographics + + + | Address | [address] | | | [place] [address] | + + + | Home Phone [...] Providers + +------+ + | Care Quality Analyst Name | Role | Phone | [...] | MRI Lumbar | [place], | [address] | | | | | Spine wo | [place] [address] | Phone: | | | | | Contrast | Phone: | [phone] | | | | | | [phone] | Fax: | | | | | | Fax: | [phone] | | | | | | [phone] | | +--------+--------+ + + + + Reason for Visit + + + | Reason | Comments | + + + | Follow-up | Discuss Injections | + + + Encounter Details +--------+---------+ + + + | Date | Type | Department | Care Team | Description | +--------+---------+ + + + | 04/03/ | Office | [facility] | Nick Martinez, | Lumbar radiculopathy | | 2018 | Visit | PHYSIATRY [address] | PA-C [address] | (Primary Dx); BACK | | | | [address] | [address] [place] | PAIN, LUMBAR; | | | | [place], [place] | [place] [address] | SACROILIITIS; DDD | | | | [address] | [phone] | (degenerative disc | | | | [phone] | | disease), lumbar; | | | [...] the procedure you must provide a driver sales to take you home. For all procedur [...] press against a nerve. Date Last Reviewed: 08/03/201519998374-2871 The [employer]. [address] [place] [address], [place] [address]. All righ ts reserved. This information is [...] and working more hours due to the [employer] Round up. 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 She has appropriate fund of [...] over the left lower extremity. The pa tiedorys was unable to heel and toe walk [...] | Office | Pain Medicine | Denys Siblye, | | | 2019 | Visit | | DO [address] | | | | | | [place] | | | | | | [address] | | | | | | | | +--------+---------+ + + + | 06/26/ | Office | Cardiology | Monserrat Weems | | 2019 | Visit | | [address] | | | | | | [address] | | | | | | [place] [address] | | | | | | [phone] | | | | | | | [...]
--- OUTSIDE RECORDS SUMMARY | ~2020-05-30 | XMS | Encounter Summary ---
Demographics + + + | Address | [address] | | | [place] [address] | + + + | Home Phone | | + + + | Preferred Language | Unknown | + + + | Marital Status | Single | + + + | Moravian Affiliation | NON | + + + [...] Team Providers + +------+ + | Care Immigration Inspector Name | Role | Phone | [...] [facility] | [place], [place] | | | | | [address] | [address] | | | | | [address] | | | | | | [place], [address] [place] [address] | | | | | | [place], [place] | | | | | | [address] | | | | | | [phone] | | | +--------+ + + + [...]
--- OUTSIDE RECORDS SUMMARY | ~2020-05-30 | XMS | Encounter Summary ---
Demographics + + + | Address | [address] | | | [place] [address] | + + + | Home Phone [...] Providers + +------+ + | Care Clinical Services Assistant Name | Role | Phone [...] [facility] [place] [address] | [address] | [place] | | | | [facility] for | [address] [place], | | | | | Health and Healing, | [place] [address] | | | | | [facility] | [phone] | | | | | Floor [place], [place] | | | | | | [address] | | | | | | [phone] | | | +--------+ + + + [...]
--- OUTSIDE RECORDS SUMMARY | ~2020-05-30 | XMS | Encounter Summary ---
Demographics + + + | Address | [address] | | | [place] [address] | + + + | Home Phone [...] Team Providers + +------+ + | Care Jazz Musician Name | Role | Phone | + [...]
--- OUTSIDE RECORDS SUMMARY | ~2020-05-30 | XMS | Encounter Summary ---
Demographics + + + | Address | [address] | | | [place] [address] | + + + | Home Phone [...] Team Providers + +------+ + | Care Toys And Games Hand Finisher Name | Role | Phone | + +------+ + | Miquel Calhoun MD | PCP | | + +------+ + Encounter Details +--------+ + + + + | Date | Type | Department | Care Team | Description | +--------+ + + + + | 11/05/ | Telephone | [facility] | Khushbu Cortez, | | | 2013 | | [facility] | [place], [place] | | | | | [address] | [address] | | | | | [address] | | | | | | [place], [address] [place] [address] | | | | | | [place], [place] | | | | | | [address] | | | | | | [phone] | | | +--------+ + + + [...]
--- OUTSIDE RECORDS SUMMARY | ~2020-05-30 | XMS | Encounter Summary ---
Demographics + + + | Address | [address] | | | [place] [address] | + + + | Home Phone [...] Team Providers + +------+ + | Care Hydro Pneumatic Tester Name | Role | Phone | + +------+ + | Romy De La Paz MD | PCP | | + +------+ + Encounter Details +--------+ + + + + | Date | Type | Department | Care Team | Description | +--------+ + + + + | 07/18/ | Preadmit | [facility] | No, Physician p | | | 2019 | Visit | CENTER PREADMIT | | | | | | CLINIC [address] | | | | | [address] [place], [place] | | | | | | [address] | | | | | | [phone] | | | +--------+ + + + [...] for the 07/18/19 encounter (Preadmit Visit) with [facility] ROOM 5 Medication Sig Instructions Ascorbic Acid [...] by elevating your feet Date Last Reviewed: 5379-8642 [employer]. [address] [place] [address], [place] [address]. All righ ts reserved. This information is not intended as a substitute for professional medical care. Always follow your healthcare professional's instructions. documented in this encounter Miscellaneous Notes Preadmit Clinic Note - Latoya Warner RN - 07/18/2019 2:00 PM PDTDrJacquelyn Chatoanalia notified of abnormal chest x-ray results, ok to proceed with OR. [facility] Note - Ericka Rice RN - 07/18/2019 2: 00 PM PDTAbnormal chest xray. Dr. Hutchins notified via fax. Placed in f/u to notify anesthesiaE lectronically signed by Ericka Rice RN at 07/18/2019 7:28 PM [facility] Note - Ericka Ramos RN - 07/18/2019 [...] [address] | | | | | | [place] [address] | | | | | | [phone] | | | | | | | [...] | | | | Signed by: Shady Briggs, Sj | | Sign Date/Time: 07/18/2019 4:58 PM [...] | | LABORATORY | | | | Blvd;[place] [address] | | | | + + + + + + + + | Specimen | + + | Blood | + + + + + + + | Performing | Address | City/State/Zipcode | Phone Number | | Organization | | | | + + + + + | [facility] | [address] | [place] [address] | [phone] | + + + + + MRSA [...] [facility] | | | | performed at [facility] | | LABORATORY | | | | [address];[place] | | | | | | [address] | | | | + + + [...] CENTER LABORATORY | [address] | [place] [address] | [phone] | + + + + + Protime INR (07/18/2019 2:26 PM PDT) + + + + + + | Component | Value | Ref Range | Performed | Pathologist | | | | | At | Signature | + + + + + + | INR | 1.0Comment: REFERENCE | | [facility] | | | | RANGE:0.9 [...] | | | | | performed at [facility];[address] | | | | | | [address];[place] | | | | | | [address] | | | | + + + + + + + + | Specimen | + + | Blood | + + + + + + + | Performing | Address | City/State/Zipcode | Phone Number | | Organization | | | | + + + + + | [facility] | [address] | [place] [address] | [phone] | + + + + + PTT (07/18/2019 2:26 PM PDT) + + + + + + | Component | Value | Ref Range | Performed | Pathologist | | | | | At | Signature | + + + + + + | PTT | 29Comment: Testing | 23 - 32 seconds | [facility] | | | | performed at [facility];[address] | | LABORATORY | | | | [address];[place], [place] | | | | | | [address] | | | | + + + + + + + + | Specimen | + + | Blood | + + + + + + + | Performing | Address | City/State/Zipcode | Phone Number | | Organization | | | | + + + + + | [facility] | [address] | [place] [address] | [phone] | + + + + + Comprehensive [...] | | | | | performed at [facility], [address] | | | | | | [address], | | | | | | [place] [address] | | | | + + + + + + + + | Specimen | + + | Blood | + + + + + + + | Performing | Address | City/State/Zipcode | Phone Number | | Organization | | | | + + + + + | [facility] | [address] [facility] | [place] [address] | [phone] | + + + + + CBC [...] 0.03Comment: Testing | 0.00 - 0.10 | [facility] | | | Absolute | performed at [facility], [address] | [address] | LABORATORY | | | | [address], | | | | | | [place] [address] | | | | + + + + + + + + | Specimen | + + | Blood | + + + + + + + | Performing | Address | City/State/Zipcode | Phone Number | | Organization | | | | + + + + + | [facility] | [address] | [place] [address] | [phone] | + + + + + ECG [...] MD | | | | | | (41) on 07/19/2019 | | | | | [...]
--- OUTSIDE RECORDS SUMMARY | ~2020-05-30 | XMS | Encounter Summary ---
Demographics + + + | Address | [address] | | | [place] [address] | + + + | Home Phone [...] Providers + +------+ + | Care Manager Statistical Programming Name | Role | Phone | + +------+ + | Romy De La Paz MD | PCP | | + +------+ + Encounter Details +--------+ + + + + | Date | Type | Department | Care Team | Description | +--------+ + + + + | 04/15/ | Hospital | [facility] | Alfredo Casillas DO | Intractable back | | 2020 | Encounter | [facility] [address] | [address] | pain; Lumbar region | | | | [address] | [place] [address] | somatic dysfunction; | | | | [place], [place] | [phone] | Foraminal stenosis | | | | [address] | | of lumbar region - | | | | [phone] | | left L5-S1; | | | [...] + + + +---------+ + + | fluticasone | USE 1 SPRAY(S) IN | | 0 | 06/15/20 | | | (FLONASE) 50 | EACH NOSTRIL TWICE | | | 20 | | | mcg/nasal spray | DAILY FOR 30 DAYS | | | | | + + [...] affected | 5800 g | 3 | 04/15/20 | | | lidocaine-prilocaine | area 2 or 3 times a | | | 20 | 1 | | (EMLA) | day | | [...] by mouth | 120 | 3 | 04/15/20 | | | (ROBAXIN) 500 mg | 4 (four) times | tablet | | 20 | | | tabletIndications: | daily. | | | | | | S/P [...] + + + +---------+ + + | metoprolol | Take 1 tablet by | 30 | 11 | 02/28/20 | | | succinate | mouth Daily. | tablet | | 20 | | | (TOPROL-XL) 25 mg 24 | | | | | | | hr tablet | | | | | | + + + +---------+ + + | naloxone (NARCAN) | 1 spray by Nasal | 2 each | 1 | 06/18/20 | | | 4 mg/nasal | route as needed for | | | 19 | | | sprayIndications: | Decreased | | | | | | shelter current | Responsiveness (May | | | | | | use of opiate | repeat with second | | | | | | analgesic | device into other | | | | | | | nostril after 2 | | | | | | | minutes). | | | | | + + + +---------+ + + | pramipexole | TAKE 1 TABLET BY | | 0 | 04/14/20 | | | (MIRAPEX) 0.5 MG | MOUTH EVERY DAY AT | | | 20 | | | tablet | BEDTIME FOR 30 DAYS | | | | | + + + +---------+ + + | rOPINIRole | Take 2 mg by mouth 4 | | 3 | 08/09/20 | | | (REQUIP) 2 MG tablet | times daily. | | | 19 | | + + + +---------+ + + | warfarin | Take 1 tablet by | 30 | 11 | 04/03/20 | | | (COUMADIN) 5 mg | mouth Daily. | tablet | | 20 | 1 | | tablet | | | | | | + + + +---------+ + + | | Take 1 tablet by | 180 | 0 | 04/15/20 | | | HYDROcodone-acetamin | mouth every 4 hours | tablet | | 20 | 0 | | ophen (NORCO) 10-325 | as needed for Pain | | | | | | mg per | for up to 30 days. 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
--- OUTSIDE RECORDS SUMMARY | ~2020-05-30 | XMS | Encounter Summary ---
Demographics + + + | Address | [address] | | | [place] [address] | + + + | Home Phone [...] Team Providers + +------+ + | Care Locker Operator Name | Role | Phone | [...] [facility] | [place], [place] | | | | | [address] | [address] | | | | | [address] | | | | | | [place], [address] [place] [address] | | | | | | [place], [place] | | | | | | [address] | | | | | | [phone] | | | +--------+ + + + [...]
--- OUTSIDE RECORDS SUMMARY | ~2020-05-30 | XMS | Encounter Summary ---
Demographics + + + | Address | [address] | | | [place] [address] | + + + | Home Phone [...] Team Providers + +------+ + | Care Ink Technician Name | Role | Phone | [...] Thoracic or | [place], | [address] | | | | | lumbosacral | Shay Mukherjee MD | [place], | | | | | neuritis or | [address] | [place] | | | | | | ST [place] | [address] | | | | | radiculitis, | [place], [place] | Phone: | | | | | unspecified | [address] | [phone] | | | | | Procedures | Phone: | Fax: | | | | | AR INJECT | [phone] | [phone] | | | | | ANES/STEROID | Fax: | | | | | | FORAMEN | [phone] | | | | | | LUMBAR/SACRA | | | | | | | L W IMG | | | | | | | GUIDE ,1 | | | | | | | LEVEL AR | | | | | | [...] + + | 04/18/ | [facility] | Shahnazdanowicz, | Left lumbar | | 2013 | Encounter | MED CTR XRAY [address] | [address] | radiculopathy; | | | | [address] [place] | MICHA[address] , [address] | Chronic low back | | | | [place] [address] | [place] [address] | pain; Facet | | | | [phone] | [phone] | arthritis of lumbar | | | | | | region; [place] | | | | | Cv Tech, [facility] | stenosis of lumbar | | | | | [place] | region - left L5-S1; | | [...] of this encounter Miscellaneous Notes Miscellaneous - ONBASE SCAN [facility] - 05/06/2014 12:00 AM PDTElectronically signed by [facility] at 05/06/2014 5:31 PM PDTMiscellaneous - ONBASE SCAN [facility] - 04/18/2014 12:00 AM PDTEle ctronically signed by norma [facility] at 08/08/2014 12:36 PM PDTdocumented in this encounter Plan of Treatment +--------+---------+ + + + | Date | Type | Specialty | Care Team | Description | +--------+---------+ + + + | 06/18/ | Office | Pain Medicine | Denys Sibley, | | | 2019 | Visit | | DO [address] | | | | | | [place] | | | | | | [address] | | | | | | | | +--------+---------+ + + + | 06/26/ | Office | Cardiology | FaustinaMonserrat | | | 2019 | Visit | | [address] | | | | | | [address] | | | | | | [place] [address] | | | | | | [phone] | | | | | | | [...] ICD-9 Code 724.4 Kori Caputo | [facility] [...] ST. | [address] | [place] | [phone] | | [facility] | | [address] | | | - IMAGING | | [...]
--- OUTSIDE RECORDS SUMMARY | ~2020-05-30 | XMS | Encounter Summary ---
Demographics + + + | Address | [address] | | | [place] [address] | + + + | Home Phone [...] Team Providers + +------+ + | Care Advertising Rep Name | Role | Phone | [...] | | spinal | [address] | [facility] [place] | | | | | stenosis | [place], [place] | [address] | | | | | | [address] | Phone: | | | | | | Phone: | [phone] | | | | | | [phone] | Fax: | | | | | | Fax: | [phone] | | | | | | [phone] | | + +--------+ + + + + Encounter Details +--------+---------+ + + + | Date | Type | Department | Care Team | Description | +--------+---------+ + + + | 06/18/ | Office | [facility] | Denys Sibley, | SACROILIITIS | | 2019 | Visit | [facility] | DO [address] | (Primary Dx); | | | | [address]OLOROLOGY [address] | [place] | Spondylosis of | | | | [address] | [id number] | lumbar region | | | | [place], [place] | | without myelopathy | | | | [address] | | or radiculopathy; | | | | [phone] | | BACK PAIN, LUMBAR; | | [...] | | | | | pain; terminal manager | | | | | | current [...] AM PDT Naloxone nasal spray Brand Name: Warren [...] the other nostri l. Talk to your referral manager regarding the use of this medicine in children. While this drug m ay be prescribed for children as young as newborns for selected conditions, precautions do a pply. What side effects may I notice from receiving this medicine? Side effects that you should report to your doctor or health nursing care attendant as soon as p ossible: allergic reactions like skin rash, itching or hives, swelling of the face, lips, or tong ue breathing problems fast, irregular heartbeat high blood pressure pain that was controlled by narcotic pain medicine seizures Side effects that usually do not require medical attention (report to your doctor or health nursing care attendant if they continue or are bothersome): anxious [...] phone number of your doctor or health nursing care attendant and local hospital ready. You may need to have additional doses of this medicine. Each nasal spray contains a single dose. Some emergencies may require additional doses. After use, bring the treated person to the nearest hospital or call 911. Make sure the [facility] health nursing care attendant knows that the person has received an [...] pharmacist, or health care provider. Copyright 2019 [employer] documented in this encounter Progress Notes Denys [...] Medical History: Diagnosis Date Acute renal failure ([facility]) April 2013 Anesthesia hallucinated after bladder repair Arthralgia Asthma Asthma Cancer ([facility]) 2004 breast Cerebrovascular accident (CVA) ([facility]) no per pt Chronic back pain Chronic back pain Concussion 07/2015 Preceeded by seizure Constipation COPD (chronic obstructive pulmonary disease) ([facility]) Degenerative disc disease Depression Depression Diabetes mellitus ([facility]) Diabetes mellitus, type 2 ([facility]) diet controlled Diarrhea Disorder [...] Scoliosis Scoliosis of lumbar spine 04/17/2014 Seizure ([facility]) one due to meds, [...] physical therapy, mass age therapy, acupuncture, home care aide, along with recommended psychological counseling , either privately, or in group sessions offered by private care individuals, community serv ices, or pentecostal organizations. Appropriate referrals were made at patient [...] return to office in 4 weeks, [facility] was consulted and appears appropriate, Urine Toxicology [...] dysfunction are noted in men and women. [facility] men will suffer erectile dysfunction with [...] complications with the passage of time. terminal manager use is also associated with depressions, [...] [place] | | | | | | [id number] | | | | | | | | +--------+---------+ + + + | 06/26/ Office | Cardiology | ReneecabreraMonserrat | | | 2019 | Visit | | [address] | | | | | | [address] | | | | | | [place] [address] | | | | | | [phone] | | | | | | | | +--------+---------+ + + + + +------+--------+ + + | Name | Type | Priori | Associated Diagnoses | Order Schedule | | | | ty | | | + +------+--------+ + + | Drugs of Abuse, | Lab | Routin | alf current | Expected: | | Panel, Pain [...] pain Backache, unspecified | + + | alf current use of opiate analgesic Encounter for long-term (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 of | | other medications | + + documented in this encounter
--- OUTSIDE RECORDS SUMMARY | ~2020-05-30 | XMS | Encounter Summary ---
Demographics + + + | Address | [address] | | | [place] [address] | + + + | Home Phone | | + + + | Preferred Language | Unknown | + + + | Marital Status | Single | + + + | Samaritan Affiliation | NON | + + + [...] Team Providers + +------+ + | Care Floatlight Loading Supervisor Name | Role | Phone | [...] | | 2016 | Encounter | at [facility] [address] | [address] | medical records from | | | | [facility] for | [address] [place], | [facility] in | | | | Health and He[place], | [place] [address] | [facility] | | | | Building | [phone] | in [address] | | | | Floor [place], [place] | | Ant | | | | [address] | | | | | | [phone] | | | +--------+ + + + [...]
--- OUTSIDE RECORDS SUMMARY | ~2020-05-30 | XMS | Encounter Summary ---
Demographics + + + | Address | [address] | | | [place] [address] | + + + | Home Phone [...] Providers + +------+ + | Care Fitness Consultant Name | Role | Phone | + +------+ + PCP | Unavailable | + +------+ + Encounter Details +--------+ + + + + | Date | Type | Department | Care Team | Description | +--------+ + + + + | 10/31/ | [facility] | [facility] | | | | 1999 - | Encounter | MED CTR CANCER | | | | | | CENTER [address] | | | | 03/16/ | | [place] | | | | 1999 | | [address] | | | | | | [phone] | | | +--------+ + + + [...] [place] | | | | | | [address] | | | | | | | | +--------+---------+ + + + | 06/26/ | Office | Cardiology | Monserrat Weems | | | 2019 | Visit | | [address] | | | | | | [address] | | | | | | [place] [address] | | | | | | [phone] | | | | | | | | +--------+---------+ + + + documented as of this encounter Visit Diagnoses Not on filedocumented in this encounter"
--- OUTSIDE RECORDS SUMMARY | ~2020-05-30 | XMS | Encounter Summary ---
Demographics + + + | Address | [address] | | | [place] [address] | + + + | Home Phone [...] Team Providers + +------+ + | Care Aesthetics Instructor Name | Role | Phone | + +------+ + | Wendi Aiken | PCP | | + +------+ + Reason for Visit + +--------+ + | Reason | Onset | Comments | | | Date | | + +--------+ + | Medication Prior | 04/10/ | Lidocaine Patch | | Authorization | 2018 | | + +--------+ + Encounter Details +--------+ + + + + | Date | Type | Department | Care Team | Description | +--------+ + + + + | 04/10/ | Telephone | [facility] | Nick Martinez, | Medication Prior | | 2018 | | [address]ATRY [address] | PA-C [address] | Authorization | | | | [address] | [address] [facility] | (Lidocaine Patch ) | | | | [place], [place] | [place] [address] | | | | | [address] | [phone] | | | | | [phone] | | | +--------+ + + + [...] this encounter Miscellaneous Notes Telephone Encounter - Marisol Segovia - 04/19/2018 9:12 AM PDTLidocaine denied. Sent letter to Him to be scanned. Closed encounter today. Electronically signed by Marisol Segovia at 04/19 9:12 AM PDTTelephone Encounter - Marisol Segovia Wong - 04/19/2018 8:42 AM PDTSent in baske t message to nurse regarding denial. Pending. Electronically signed by Marisol Segovia at 04/19 8:42 AM PDTTelephone Encounter - Cheyenne Flores All Source Analyst - 04/10/2018 11: 02 AM PDTPlease complete referral for 5% lidocaine patches. Patient is aware this may not ge t approved and will be waiting for an update. Thanks, Cheyenne Flores MA-CElectronically signed by Broderick Gaffney at 8 11:03 AM PDTdocumented in this encounter Plan of [...] [place] | | | | | | [id number] | | | | | | | | +--------+---------+ + + + | 06/26/ | Office | Cardiology | Monserrat Weems | | | 2020 | Visit | | [address] | | | | | | [address] | | | | | | [place] [address] | | | | | | [phone] | | | | | | | | +--------+---------+ + + + documented as of this encounter Visit Diagnoses Not on filedocumented in this encounter"
--- OUTSIDE RECORDS SUMMARY | ~2020-05-30 | XMS | Encounter Summary ---
Demographics + + + | Address | [address] | | | [place] [address] | + + + | Home Phone [...] Providers + +------+ + | Care Commercial Loan Processor Name | Role | Phone | [...] | | spinal | [address] | [facility] [place] | | | | | stenosis | [place], [place] | [address] | | | | | | [address] | Phone: | | | | | | Phone: | [phone] | | | | | | [phone] | Fax: | | | | | | Fax: | [phone] | | | | | | [phone] | | + +--------+ + + + + Encounter Details +--------+---------+ + + + | Date | Type | Department | Care Team | Description | +--------+---------+ + + + | 07/18/ | Office | [facility] | Denys Sibley, | Lumbar region | | 2018 | Visit | [facility] | DO [address] | somatic dysfunction | | | | [address]Y [address] | [place] | (Primary Dx); | | | | [address] | [address] | Intractable back | | | | [facility] [place] | | pain; Encounter for | | | | [address] | | long-term use of | | | | [phone] | | opiate analgesic; | | | [...] after bladder repair Arthralgia Asthma Asthma Cancer ([facility]) 2004 breast Cerebrovascular accident (CVA) ([facility] [...] to physical therapy, mass age therapy, acupuncture, personal care service provider, along with recommended psychological counseling , either privately, or in group sessions offered by private care individuals, community serv ices, or moravian organizations. Appropriate referrals were made at patient [...] Will return to office in 4 weeks, [facility] was consulted and appears appropriate, Urine [...] and complications with the passage of time. MCC use is also associated with depressions, and [...] [place] | | | | | | [address] | | | | | | | | +--------+---------+ + + + | 06/26/ | Office | Cardiology | Monserrat Weems | | 2019 | Visit | | [address] | | | | | | [address] | | | | | | [place] [address] | | | | | | [phone] | | | | | | | [...]
--- OUTSIDE RECORDS SUMMARY | ~2020-05-30 | XMS | Encounter Summary ---
Demographics + + + | Address | [address] | | | [place] [address] | + + + | Home Phone [...] Team Providers + +------+ + | Care Cold Roll Catcher Name | Role | Phone | + [...] + + | 03/27/ | Telephone | [facility] | Miesha Jeter | Other (Patient can't | | 2019 | | CARDIOLOGY DANIEL Holloway, Staff Nurse | bharat Romero ) | | | | [address] | | | | | | [place], [place] | | | | | | [address] | | | | | | [phone] | | | +--------+ + + + [...] Miscellaneous Notes Telephone Encounter - Miesha Jeter, Staff Nurse - 03/31/2020 4:19 PM PDTPatien t called [...] MUSHTAQ:SIN. el ephone Encounter - Miesha Jeter, Staff Nurse - 03/31/2020 8:35 AM PDTCall made to [...] MUSHTAQ:SIN. el ephone Encounter - Miesha Jeter, Staff Nurse - 03/27/2020 3:[address]es [...] blood thinner? Message sent to Dr Castillo. JDW:PROGRESSIVE DIE MAKER-AAMA. [facility] umented in this encounter Plan of Treatment +--------+---------+ + + + | Date | Type | Specialty | Care Team | Description | +--------+---------+ + + + | 06/18/ | Office | Pain Medicine | Denys Sibley, | | 2019 | Visit | | [address] | | | | | | [place] | | | | | | [address] | | | | | | | | +--------+---------+ + + + | 06/26/ | Office | Cardiology | Monserrat Weems | | 2019 | Visit | | [address] | | | | | | [address] | | | | | | [place] [address] | | | | | | [phone] | | | | | | | | +--------+---------+ + + + documented as of this encounter Visit Diagnoses Not on filedocumented in this encounter"
--- OUTSIDE RECORDS SUMMARY | ~2020-05-30 | XMS | Encounter Summary ---
Demographics + + + | Address | [address] | | | [place] [address] | + + + | Home Phone [...] Team Providers + +------+ + | Care Capacity Planning Manager Name | Role | Phone | + +------+ + | Wendi Aiken | PCP | | + +------+ + Encounter Details +--------+ + + + + | Date | Type | Department | Care Team | Description | +--------+ + + + + | 04/06/ | Hospital | [facility] | Nick Martinez, | Lumbar radiculopathy | | 2018 | Encounter | MED CTR XRAY [address] | PA-C [address] | | | | | [place] | [address] [place] | | | | | [place] [address] | [place] [address] | | | | | [phone] | [phone] | | | | | | | | | | | | Pig Lead Melter Helper, [facility] | | | | | | [...] [place] | | | | | | [address] | | | | | | | | +--------+---------+ + + + | 06/26/ | Office | Cardiology | Monserrat Weems | | 2019 | Visit | | [address] | | | | | | [address] | | | | | | [place] [address] | | | | | | [phone] | | | | | | | [...] | | | | ONCE, [facility] 04/06/18 at 1330, For 1 | [...] | | | | | Other, ONCE, [facility]ia 04/06/18 at 1330, | | PM PDT [...] (Comment | | Intradermal, ONCE, [facility] 04/06/18 at | | PM PDT | | | ) | | 1330, For 1 dose | | | | | | + +-------+ +-------+---+ + +---+---+ | | | +---+---+ documented in this encounter"
--- OUTSIDE RECORDS SUMMARY | ~2020-05-30 | XMS | Encounter Summary ---
Demographics + + + | Address | [address] | | | [place] [address] | + + + | Home Phone [...] Team Providers + +------+ + | Care Stitching Machine Feeder Or Offbearer Name | Role | Phone | [...] + + | 08/16/ | Telephone | [facility] | Shay Dietz | Appointment | | 2012 | | PH[address]SIATRY [address] | TMD [address] | | | | | [address] | [place] | | | | | [place] | [address] | | | | | [address] | | | | | | [phone] | | | +--------+ + + + [...] Miscellaneous Notes Telephone Encounter - Kylee Wright LUISA Suarez - 08/23/2013 10:44 AM PDTThe patient said [...] likely be going to a specialist at [facility] in the near future. Patient was scheduled for 09/18/13 with a 1:00 appointment time. Patient was given pre-proc edure instructions. el ephone Encounter - Shay Dietz MD - 08/23/2013 7:24 AM PDTHappy to [...] at this time. Please call patient elephone Chirag cowart - Natty Santo 08/16/2013 2:09 PM PDTPatient called wanting to [...] [place] | | | | | | [facility] [place] [address] | | | | | | [phone] | | | | | | | | +--------+---------+ + + + documented as of this encounter Visit Diagnoses Not on filedocumented in this encounter
--- OUTSIDE RECORDS SUMMARY | ~2020-05-30 | XMS | Encounter Summary ---
Demographics + + + | Address | [address] | | | [place] [address] | + + + | Home Phone [...] Team Providers + +------+ + | Care Pick Up Worker Name | Role | Phone [...] | Pain | Diagnoses | Cr, | Patient Services Specialist Chh1 | | | | Management | PPS (pelvic | MD Britta | [address] | | | | | pain | [address] | [address] [place] | | | | | syndrome) | [facility] | for Health | | | | | Procedures | Rd | and Healing, | | | | | CONSULT TO | [place], [place] | [facility] | | | | | PAIN CENTER | [address] | 1,15th Floor | | | | | | Phone: | [place], [place] | | | | | | [phone] | [address] | | | | | | Fax: | Phone: | | | | | | [phone] | [phone] | | | | | | | Fax: | | | | | | | [phone] | +--------+--------+ + + + + Reason [...] | | | | | symptom | [place] | [place] | | | | | associated | [place] | [place] | | | | | with female | Urology [address] | [address], 7th | | | | | genital | [address] | floor | | | | | organs | [address] [place], | [place], [place] | | | | | Unspecified | [place] [address] | [address] | | | | | urinary | Phone: | Phone: | | | | | incontinence | [phone] | [phone] | | | | | | Fax: | Fax: | | | | | | [phone] | [phone] | +--------+--------+ + + + + Encounter Details +--------+---------+ + + + | Date | Type | Department | Care Team | Description | +--------+---------+ + + + | 11/29/ | Office | [facility] | Britta Hankins MD | PPS (pelvic pain | | 2013 | Visit | [facility] | [address] | syndrome) (Primary | | | | [address] [place], | Dx); Depression with | | | | [address] [place] | [place] [address] | suicidal ideation; | | | | [address], 7th floor | [phone] | Recurrent UTI; | | | | [place], [place] | | Hypoestrogenism | | | | [address] | | | | | | [phone] | | | +--------+---------+ + + + [...] 4. Referral to pain service here at [facility] 5. Let me know if you would like me to fill out the paper work for a medical marijuana card documented in this encounter Progress Notes Other, Faculty - 01/16/2014 10:08 AM PDTElectronically signed by Faculty Other at 10:08 AM Britta Villalobos MD - 11/29/2013 [...] reconstructive surgery. She is accompanied by her veronica babcock Lizzy. He lives here in [place] so he is not fully aware of her recent health issues but billy quiroz did help in providing some of his mother's past history. 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 Long gold, she was hospitalized at [facility] in 2005 for a Vicodin overdose. At that time, she was taking lamictal, trazodone and Cymbalta. The patient's recurrent UTIs as an adult began around menopause. She had a hyst in 1993 t o try to reduce suicidal ideation around menses. While to her third from [age] to his in 1999, she was very [...] speaker, a good grandmother". Her physicians in [place] and elsewhere will not pre scribe pain [...] until she was able to leave her [place] [employer] house at age 20. Her aunt recently [...] estrogenization of the vulvova ginal tissues; negative HOME MORTGAGE DISCLOSURE ACT SPECIALIST; no hypospadias of the urethra; + tenderness [...] F/U with Dr. Stover on return to [place]. I am Christine Monterroso functioning as a scribe for Dr. Britta Hankins. Christine Monterroso [facility] [address] [place] [address] Donald Moncadaler [facility] [address] I have reviewed, verified, and amended the [...] for afternoon appointments. Britta Hankins M.D., FACS Olericulture Teacher [facility] documented in this [...]
--- OUTSIDE RECORDS SUMMARY | ~2020-05-30 | XMS | Encounter Summary ---
Demographics + + + | Address | [address] | | | [place] [address] | + + + | Home Phone [...] Team Providers + +------+ + | Care Database Analyst Name | Role | Phone | + +------+ + | Miquel Calhoun MD | PCP | | + +------+ + Encounter Details +--------+ + + + + | Date | Type | Department | Care Team | Description | +--------+ + + + + | 11/12/ | Telephone | [facility] | Khushbu Cortez, | | | 2013 | | [facility] | [place], [place] | | | | | [address] | [address] | | | | | [address] | | | | | | [place], [address] [place] [address] | | | | | | [place], [place] | | | | | | [address] | | | | | | [phone] | | | +--------+ + + + [...]
--- OUTSIDE RECORDS SUMMARY | ~2020-05-30 | XMS | Encounter Summary ---
Demographics + + + | Address | [address] | | | [place] [address] | + + + | Home Phone [...] Team Providers + +------+ + | Care Academic Coach Name | Role | Phone | + +------+ + | Wendi Aiken | PCP | | + +------+ + Reason for Visit + +--------+ + | Reason | Onset | Comments | | | Date | | + +--------+ + | Results, Imaging | 04/06/ | MRI/Cancelled Injection | | | 2018 | | + +--------+ + Encounter Details +--------+ + + + + | Date | Type | Department | Care Team | Description | +--------+ + + + + | 04/06/ | Telephone | [facility] | Nick Martinez, | Results, Imaging | | 2017 | | PH[address]SIATRY [address] | PA-C [address] | (MRI/Cancelled | | | | [address] | [address] [place] | Injection) | | | | [place], [place] | [place] [address] | | | | | [address] | [phone] | | | | | [phone] | | | +--------+ + + + [...] Miscellaneous Notes Telephone Encounter - Cheyenne Flores, Operations And Maintenance Manager - 04/06/2018 2:53 PM PDTPer Bridgette y Juan GREGORY: Patient's MRI revealed a compression fracture in the low back, therefor her i njection that was scheduled to day has been cancelled. Due to the patient's hx with opiate i ssues. I am not comfortable prescribing her opioid pain medication as treatment. Please rela y to her PCP that she has a compression fx and to please manage her pain control meds. I relayed this message to the patient's PCP's nurse Madelyn who expressed understanding and w as grateful for the call.Electronically signed by Cheyenne Flores Operations And Maintenance Manager at 04/2018 3:03 PM PDTdocumented in this encounter Plan of [...] | | | | | [place] [address] | | | | | | [phone] | | | | | | | | +--------+---------+ + + + documented as of this encounter Visit Diagnoses Not on filedocumented in this encounter"
--- OUTSIDE RECORDS SUMMARY | ~2020-05-30 | XMS | Encounter Summary ---
Demographics + + + | Address | [address] | | | [place] [address] | + + + | Home Phone [...] Providers + +------+ + | Care First Press Operator Name | Role | Phone | + +------+ + | Romy De La Paz MD | PCP | | + +------+ + Encounter Details +--------+ + + + + | Date | Type | Department | Care Team | Description | +--------+ + + + + | 10/18/ | Telephone | [facility] | Shay Dietz | | | 2012 | | MEDICINE [address] | MD Lonny [address] | | | | | [address] [place] [facility], | [place], [place] | | | | | [place] [address] | [address] | | | | | [phone] | | | +--------+ + + + [...] [place] | | | | | | [address] | | | | | | | | +--------+---------+ + + + | 06/26/ | Office | Cardiology | Monserrat Weems | | | 2019 | Visit | | [address] | | | | | | [address] | | | | | | [place] [address] | | | | | | [phone] | | | | | | | | +--------+---------+ + + + documented as of this encounter Visit Diagnoses Not on filedocumented in this encounter"
--- OUTSIDE RECORDS SUMMARY | ~2020-05-30 | XMS | Encounter Summary ---
Demographics + + + | Address | [address] | | | [place] [address] | + + + | Home Phone [...] Providers + +------+ + | Care Fitness And Wellness Instructor Name | Role | Phone | [...] | | Services | | Chronic | Spenser, | MD Dav[address] | | | Required | | bilateral | [place], | [address] | | | | | low back | PA-C [address] | [place] | | | | | pain with | [address], | [address] | | | | | right-sided | [address] | Phone: | | | | | sciatica | [place] | [phone] | | | | | Facet | [address] | Fax: | | | | | arthritis of | Phone: | [phone] | | | | | lumbar | [phone] | | | | | | region | Fax: | | | | | | Adolescent | [phone] | | | | | | idiopathic [...] | | | Spenser, | [address] | | | | | Trochanteric | [place], | [place], | | | | | bursitis of | PA-C [address] | [place] | | | | | right hip | [address], | [address] | | | | | Procedures | [address] | Phone: | | | | | [place] | [place], [place] | [phone] | | | | | Joint | [address] | Fax: | | | | | Injection | Phone: | [phone] | | | | | Right | [phone] | | | | | | | Fax: | | | | | | | [phone] | | +--------+--------+ + + + + [...] + + | 02/08/ | Office | [facility] [place] | Shiracz, | Chronic bilateral | | 2017 | Visit | PHYSIATRY [address] | BRI [address]ves [address] | low back pain with | | | | [address] | [address], [address] | right-sided sciatica | | | | [place], [place] | [place] [address] | (Primary Dx); Facet | | | | [address] | [phone] | arthritis of lumbar | | | | [phone] | | region (HCC); | | | [...] of blood sugars if you are diabetic. watermelon harvesting supervisor risk can lead to osteoporosis which is [...] of the procedure you must provide a school bus driver/teacher assistant to take you home. For all procedur [...] working more h ours due to the [employer] up. Her pain back is worse with [...] PT (multiple sessions over the years) and career consultant. Unfortunately she lola nues to have significant [...] surgery again. She last saw him in 2 015, a physiatric evaluation was recommended,she did [...] | | | | | | [place] | | | | | | [address] | | | | | | | | +--------+---------+ + + + | 06/26/ | Office | Cardiology | Monserrat Weems | | 2019 | Visit | | [address] | | | | | | [address] | | | | | | [place] [address] | | | | | | [phone] | | | | | | | [...] Trochanteric Bursitis ICD-10 Code M47.816 and ICD-10 [facility] | | Harshal Rubio presents [...] + + + | [facility] | [address] | [place] | [phone] | | [facility] | | [address] | | | - IMAGING | | [...]
--- OUTSIDE RECORDS SUMMARY | ~2020-05-30 | XMS | Encounter Summary ---
Demographics + + + | Address | [address] | | | [place] [address] | + + + | Home Phone [...] Team Providers + +------+ + | Care Stranding Machine Operator Helper Name | Role | Phone | + +------+ + PCP | Unavailable | + +------+ + Encounter Details +--------+ + + + + | Date | Type | Department | Care Team | Description | +--------+ + + + + | 06/26/ | Respiratory | | Other, Faculty | | | 2006 | Therapy | | [phone] | | +--------+ + + + + [...] RADHA ALONZO | [address] | [place], [place] | | | DIAGNOSTICS - | [address] | [address] | | | PULMONARY FUNCTION | | | | + + + + + documented in this encounter Visit Diagnoses Not on filedocumented in this encounter"
--- OUTSIDE RECORDS SUMMARY | ~2020-05-30 | XMS | Encounter Summary ---
Demographics + + + | Address | [address] | | | [place] [address] | + + + | Home Phone [...] Providers + +------+ + | Care Ore Miner Blasting Name | Role | Phone | + +------+ + | Oxana Nye | PCP | | + +------+ + Reason for Visit +---------+--------+ + | Reason | Onset | Comments | | | Date | | +---------+--------+ + | Results | 07/12/ | | | | 2016 | | +---------+--------+ + Encounter Details +--------+ + + + + | Date | Type | Department | Care Team | Description | +--------+ + + + + | 07/12/ | Telephone | [facility] | Spenser, | Results | | 2015 | | PHYSIATRY [address] | [address]RI [address] | | | | | [address] | [address] | | | | | [place] | [place] [address] | | | | | [address] | [phone] | | | | | [phone] | | | +--------+ + + + [...] to schedule prior to patient leaving to [place] and unfortunately there is nothing available. Patient [...] ffect. Patient states she will be in [place] 07/21-07/27 and wants to know what she can do f or the pain while in [place]. Patient states her PCP will no longer [...] that requested MRI has been completed at [facility]. Images and report hav e been [...] [place] | | | | | | [id number] | | | | | | | | +--------+---------+ + + + | 06/26/ | Office | Cardiology | Monserrat Weems | | | 2019 | Visit | | [address] | | | | | | [address] | | | | | | [place] [address] | | | | | | [phone] | | | | | | | | +--------+---------+ + + + documented as of this encounter Visit Diagnoses Not on filedocumented in this encounter"
--- OUTSIDE RECORDS SUMMARY | ~2020-05-30 | XMS | Encounter Summary ---
Demographics + + + | Address | [address] | | | [place] [address] | + + + | Home Phone [...] Team Providers + +------+ + | Care Cuff Runner Name | Role | Phone | [...] | | | [address] | [place] [address] | | | | | [place] [address] | | | | | | [phone] | | | +--------+ + + + [...] [place] | | | | | | [address] | | | | | | | | +--------+---------+ + + + | 06/26/ | Office | Cardiology | Monserrat Weems | | | 2019 | Visit | | [address] | | | | | | [address] | | | | | | [place] [address] | | | | | | [phone] | | | | | | | [...]
--- OUTSIDE RECORDS SUMMARY | ~2020-05-30 | XMS | Encounter Summary ---
Demographics + + + | Address | [address] | | | [place] [address] | + + + | Home Phone [...] Team Providers + +------+ + | Care Team Cdl Driver Name | Role | Phone | [...] + + | 04/25/ | Emergency | [facility] | Billy Romo, | Concussion, without | | 2016 | | HOSPITAL EMERGENCY | [place] [address] [facility] | LOC, initial | | | | [place] [address] MEDICAL | [place], | encounter (Primary | | | | [facility], [place] | [place] [address] | Dx); Cervical | | | | [address] | [phone] | strain, acute, | | | | [phone] | | initial encounter | +--------+ + [...] sent through Care Everywhere.CERVICAL STRAIN , UNDERSTANDING (VIETNAMESE)CONCUSSION, AFTER (VIETNAMESE)CONCUSSION, COPING WITH (VIETNAMESE)manish disla in this encounter Medications at Time [...] a soft rubber ball about 30 mins CHIEF OPHTHALMIC TECHNICIAN. Patient reports mild confusion, headache l ocated [...] 10.0 - 12.0 seconds INR 0.93 >.00-<2.00 [facility] Medical Decision Making 71 yo female with [...] [place] | | | | | | [id number] | | | | | | | | +--------+---------+ + + + | 06/26/ | Office | Cardiology | Monserrat Weems | | | 2019 | Visit | | [address] | | | | | | [address] | | | | | | [place] [address] | | | | | | [phone] | | | | | | | [...] | | n - | | | 06/26/ | | | 2017 | | | [...] L?MRN: | | | | | | [id number] | | | [id number] | | | his | | | [...] | | | St. | | | [place] | | | y H. | | [...] | | | St. | | | [place] | | | y | | | [...] | | | n, | | | 3D ARTIST, | | | 3D ARTIST | | | Primar | | | [...] Performed At | + + + | [address] | | | [place], [place] [address] | | | NAME: KORI HARMON DATE: 04/25/2017 | | | : 1945 PT GENDER: F ROOM: ER PHYSICIAN: | | | BILLY ROMO PID#: [id number] CC TO: MR#: | | | PROCEDURE: [...] Results In - 04/27/2017 9:10 AM PDT [facility] | | [address] [facility] | | [place], [place] [address] | | | | | | NAME: KORI HARMON DATE: 04/25/2017 | | : 1945 PT GENDER: F ROOM: ER | | PHYSICIAN: BILLY ROMO PID#: [id number] | | CC TO: MR#: | | [...] Performed At | + + + | [address] | | | [place], [place] [address] | | | NAME: KORI HARMON DATE: 04/25/2017 | | | : 1945 PT GENDER: F ROOM: ER PHYSICIAN: | | | BILLY ROMO PID#: [id number] CC TO: MR#: | | | PROCEDURE: [...] Results In - 04/27/2017 9:10 AM PDT [facility] | | [address] [place] [address] | | [place], [place] [address] | | | | | | NAME: KORI HARMON DATE: 04/25/2017 | | : 1945 PT GENDER: F ROOM: ER | | PHYSICIAN: BILLY ROMO PID#: [id number] | | CC TO: MR#: | | [...] | + + + + + | [facility] | [address] | [place] | [phone] | | HOSPITAL LABORATORY | | [address] | | + + + + + [...] 21 | 5 - 26 mg/dL | [facility] | | | | | | COMMUNITY | | | | | | HOSPITAL | | | | | | LABORATORY | | + + + + + + | Creatinine | 0.83 | >.60-<1.30 | [facility] | | | | | mg/dL | COMMUNITY | | | | | | HOSPITAL | | | | | | LABORATORY | | + + + + + + | eGFR, | >60Comment: GLOMERULAR | >=60 | [facility] | | | non- | FILTRATION | mL/min/1.73m2 | PENDING SALE TO [facility] | | | [place]er | RATE,ESTIMATED | | HOSPITAL | | | | mL/min/1.52d9Beor than | | LABORATORY | | | [...] | + + + + + | [facility] | [address] | [place], [place] | [phone] | | HOSPITAL LABORATORY | | [address] | | + + + + + CBC with Differential (04/25/2017 7:20 PM PDT) + + + + + + | Component | Value | Ref Range | Performed | Pathologist | | | | | At | Signature | + + + + + + | White Blood | 6.1 | >4.5-<11.0 K/uL | [facility] | | | Cells | | | COMMUNITY | | | | | | HOSPITAL | | | | | | LABORATORY | | + + + + + + | Red Blood | 4.36 (L) | 4.50 - 6.00 | [facility] | | | Cells | | M/uL [...] | + + + + + | [facility] | [address] | [place], [place] | [phone] | | HOSPITAL LABORATORY | | [address] | | + + + + + documented in this encounter Visit Diagnoses + + | Diagnosis | + + | Concussion, without LOC, initial encounter - Primary | + + | Cervical strain, acute, initial encounter | + + documented in this encounter
--- OUTSIDE RECORDS SUMMARY | ~2020-05-30 | XMS | Encounter Summary ---
Demographics + + + | Address | [address] | | | [place] [address] | + + + | Home Phone [...] Providers + +------+ + | Care Can Filler Name | Role | Phone | [...] as of this encounter Discharge Summaries Interface, Supervisor Fusing Room In - 08/03/2006 2:03 AM PDT [id number]/ [id number] ROSANA Suarez [id number] Admission Date: 06/26/2006 Discharge Date: 06/30/2006 Staff [...] up with her primary care doctor in [place] to get lab followup within the next [...] psychiatrist, Dr. Pham; his phone number is [phone]. She is to make a followup appointment with him within the next week. The patient is also to follow up with Dr. Kel Young, he is located as well in [place], [place], and is associated with [facility]. She is to follow up with him for repeat electrolytes including potassium, magnesium, and phosphorus within the next several days. Monroe Disla M.D. Sherita Madrid M.D., M.P.H. / [id number] / [id number] / [id number] / [phone] cc: * Dr. Pham [facility], [place] FAX: [phone] Kel Young M.D. Electronically signed by Sherita Madrid 08-02-2006 11:01:13 AM documented i n this encounter Plan of Treatment Not on filedocumented as of this encounter Visit Diagnoses Not on filedocumented in this encounter"
--- OUTSIDE RECORDS SUMMARY | ~2020-05-30 | XMS | Encounter Summary ---
Demographics + + + | Address | [address] | | | [place] [address] | + + + | Home Phone [...] Team Providers + +------+ + | Care Crown Ceramist Name | Role | Phone | + [...] + + | 11/23/ | Telephone | [facility] | Jairo Doshi, | Imaging Only | | 2019 | | NEUROSURGERY [address] | PA-C [address] | | | | | [address] | [address] | | | | | [place], [place] | [place] [address] | | | | | [address] | [phone] | | | | | [phone] | | | +--------+ + + + [...] RN - 11/27/2019 8:29 AM PSTSpoke with Radha Deutsch at outpatient therapy. Advised that her SCS was placed at [facility] so it would be more appropria te to contact their office. She verbalized understanding. elephone Encounter - Gloria March - 11/23/2019 3:30 PM PSTPER CED SERVICES: From: [facility] or Co: [...] [place] | | | | | | [address] | | | | | | | | +--------+---------+ + + + | 06/26/ | Office | Cardiology | Monserrat Weems | | | 2020 | Visit | | [address] | | | | | | [address] | | | | | | [place] [address] | | | | | | [phone] | | | | | | | | +--------+---------+ + + + documented as of this encounter Visit Diagnoses Not on filedocumented in this encounter"
--- OUTSIDE RECORDS SUMMARY | ~2020-05-30 | XMS | Encounter Summary ---
Demographics + + + | Address | [address] | | | [place] [address] | + + + | Home Phone [...] Team Providers + +------+ + | Care Power Digger Operator Name | Role | Phone | [...] + + | 08/27/ | Telephone | [facility] | Denys Sibley, | Follow-up | | 2019 | | [facility] | [address] | | | | | [address] | [place], [place] | | | | | [address] | [address] | | | | | [place], [place] | | | | | | [address] | | | | | | [phone] | | | +--------+ + + + [...] Miscellaneous Notes Telephone Encounter - Rupa Nye, Harpoon Engagement Planning Operator - 08/27/2019 3:43 PM PDTCalled and spoke to patient letting her know the only appointment that I can move her to into the month of August is 09/13 at 8:40 am. 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 Electronically signed by Rupa Nye Harpoon Engagement Planning Operator at 3:45 PM PDTTelephone Encounter - Sj [...] home number listed. elephone Encounter - Rupa Pennington Harpoon Engagement Planning Operator - 08/27/2019 9:08 AM PDTCalled and left a message for korina ent to call back. Electronically signed by Rupa Nye Harpoon Engagement Planning Operator at 9:08 AM PDTTelephone Encounter - Vilma [...] transfer the call to a p joan sports therapist was caller made aware that if at [...] [place] | | | | | | [id number] | | | | | | | | +--------+---------+ + + + | 06/26/ | Office | Cardiology | Monserrat Weems | | 2019 | Visit | | [address] | | | | | | [address] | | | | | | [place] [address] | | | | | | [phone] | | | | | | | | +--------+---------+ + + + documented as of this encounter Visit Diagnoses Not on filedocumented in this encounter"
--- OUTSIDE RECORDS SUMMARY | ~2020-05-30 | XMS | Encounter Summary ---
Demographics + + + | Address | [address] | | | [place] [address] | + + + | Home Phone [...] Team Providers + +------+ + | Care Microwave Supervisor Name | Role | Phone | [...] | | | | | region | [address] | | | | | | | Phone: | | | | | | | [phone] | | | | | | | Fax: | | | | | | | [phone] | | +--------+ + + + + + Reason for Visit + + + | Reason | Comments | + + + | Follow-up | MRI f/u | + + + Encounter Details +--------+---------+ + + + | Date | Type | Department | Care Team | Description | +--------+---------+ + + + | 09/10/ | Office | [facility] | Darrin Soler | Scoliosis of lumbar | | 2013 | Visit | [address]UROSURGERY [address] | [address] | spine (Primary Dx); | | | | [address] | [address] [place], [place] | Facet arthritis of | | | | [place], [place] | [address] | lumbar region | | | | [address] | | | | | | [phone] | | | +--------+---------+ + + + [...] [address] [facility], [address] [place], [place] [address] FAX: NEUROSURGERY HISTORY AND PHYSICAL EXAMINATION CHIEF [...] a also s een a surgeon in [facility] he stated she did not need to have surgery according to her repo rt. She also reports she had a recent MRI in the [facility] which I do not have to [...] has no apparent deficits with short or longterm memory. CRANIAL NERVES: II: Acuity is intact. [...] Intrinsics 5 4 Ulnar Intrinsics 5 4 Motion Graphics Designer Strength 5 4 Hip Flexion 5 [...] | | | | | | [place] | | | | | | [address] | | | | | | | | +--------+---------+ + + + | 06/26/ | Office | Cardiology | Monserrat Weems | | | 2019 | Visit | | [address] | | | | | | [address] | | | | | | [place] [address] | | | | | | [phone] | | | | | | | [...]
--- OUTSIDE RECORDS SUMMARY | ~2020-05-30 | XMS | Encounter Summary ---
Demographics + + + | Address | [address] | | | [place] [address] | + + + | Home Phone [...] Team Providers + +------+ + | Care Will Call Order Clerk Name | Role | Phone | + +------+ + PCP | Unavailable | + +------+ + Encounter Details +--------+ + + + + | Date | Type | Department | Care Team | Description | +--------+ + + + + | 06/26/ | Respiratory | | Other, Faculty | | | 2006 | Therapy | | [phone] | | +--------+ + + + + [...] RADHA ALONZO | [address] | [place], [place] | | | DIAGNOSTICS - | [address] | [address] | | | PULMONARY FUNCTION | | | | + + + + + documented in this encounter Visit Diagnoses Not on filedocumented in this encounter"
--- OUTSIDE RECORDS SUMMARY | ~2020-05-30 | XMS | Encounter Summary ---
Demographics + + + | Address | [address] | | | [place] [address] | + + + | Home Phone [...] Providers + +------+ + | Care Hot Press Operator Name | Role | Phone [...] for | | 2016 | | at [facility] [address] | [address] | new pt appt) | | | | Brittany Willits for | [address] [place], | | | | | [facility] and Healing, | [place] [address] | | | | | [facility] | [phone] | | | | | Floor [place], [place] | | | | | | [address] | | | | | | [phone] | | | +--------+ + + + [...]
--- OUTSIDE RECORDS SUMMARY | ~2020-05-30 | XMS | Encounter Summary ---
Demographics + + + | Address | [address] | | | [place] [address] | + + + | Home Phone [...] Providers + +------+ + | Care Plater Production Name | Role | Phone | + [...] | | | | | lumbar | [address] | | | | | | spinal | [address] | [place], [place] | | | | | stenosis | [place], [place] | [address] | | | | | | [address] | Phone: | | | | | | Phone: | [phone] | | | | | | [phone] | Fax: | | | | | | Fax: | [phone] | | | | | | [phone] | | + +--------+ + + + + Encounter Details +--------+---------+ + + + | Date | Type | Department | Care Team | Description | +--------+---------+ + + + | 11/14/ | Office | [facility] | Denys Sibley, | S/P insertion of | | 2019 | Visit | [facility] | DO [address] | spinal cord | | | | [address] | [facility] | stimulator (Primary | | | | [address] | [address] | Dx); Spinal stenosis | | | | [place], [place] | | of lumbosacral | | | | [address] | | region; Lumbar | | | | [phone] | | region somatic | | | [...] medication evaluation follow-up. Subjective: Chronic Pain:Current medication: Rock[place] 10/325 1 p.o. every 4 hours as needed pain Kori McintoshErasmo presents for chronic pain evaluation [...] including but not limited to physical therapy, clinical care coordinator, acupuncture, massage therapy, and nutritional healt [...] Author Status Filed Medication Agreement Rupa Nye, Pathology Laboratory Technologist Active 11/14/2019 1:49 PM Pain Contract- Dr. Sibley 11/14/2019 PEG Pain screening tool (Pain, enjoyment, general activity) Total score: (Printable questionnaires in Monegasque ) Interpretation of Total Score: PEG scores are used to track changes over time. It should de crease after therapy has begun. Last 4 PEG Scores: No flowsheet data found. Opioid Risk Tool (ORT): Total Score Pulse: 72 Resp: 16 BP: 99/58 SpO2: 99 % (From Chronic Pain tab; printable questionnaires in Monegasque) Interpretation of Total Score: 0 to 3 [...] [facility]) Diabetes mellitus, type 2 (HCC) diet controlled Diabetes type 2, controlled ([facility] [...] Scoliosis Scoliosis of lumbar spine 04/17/2014 Seizure ([facility]) one due to meds, two [...] [facility]) Diabetes mellitus, type 2 (HCC) diet controlled Diabetes type 2, controlled ([facility] [...] Procedure: KYPHOPLASTY; Surgeon: Alfredo Casillas DO; Location: [facility] MA[facility] OR; Service: Pa in Management; Laterality: N/A; L5 FRACTURE SURGERY ANKLE HERNIA REPAIR HYSTERECTOMY HYSTERECTOMY LAMINECTOMY N/A 08/03/2019 Procedure: LAMINOTOMY THORACIC / LUMBAR W/ PLACEMENT SPINAL CORD STIMULATOR; Surgeon: Suly Hutchins MD; [facility] OTHER SURGICAL HISTORY EPIDURAL STEROID [...] = high risk) Daily Opioid Dose = Rock[place] 10/325 1 p.o. every 4 hours. Daily [...] off the fentanyl patch. Continues with the Rockham 10/325 1 p.o. every 4 h ours [...] imited to physical therapy, massage therapy, acupuncture, clinical care coordinator, along with niki mmended psychological counseling, either privately, or in group sessions offered by private care individuals, community services, or oriental orthodox organizations. Appropriate referrals were made at patient [...] and complications with the passage of time. 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 Finally, these medicines are associated with both physical and emotional addiction and can be difficult to stop after taking for only a few weeks. This document has been created using [employer] Voice Recognition software and [employer]. The entry has been reviewed for content and accuracy, but there may still exist "sound alike" hatchery manager word errors and/or unintended additions and [...] [place] | | | | | | [address] | | | | | | | | +--------+---------+ + + + | 06/26/ | Office | Cardiology | Monserrat Weems | | | 2020 | Visit | | [address] | | | | | | [address] | | | | | | [place] [address] | | | | | | [phone] | | | | | | | [...]
--- OUTSIDE RECORDS SUMMARY | ~2020-05-30 | XMS | Encounter Summary ---
Demographics + + + | Address | [address] | | | [place] [address] | + + + | Home Phone [...] Team Providers + +------+ + | Care Parking Assistant Name | Role | Phone | [...] | Pain | Diagnoses | Cr, | Television Cabinet Finisher Chh1 | | | | Management | PPS (pelvic | MD Britta | [address] | | | | | pain | [address] | e [place] | | | | | syndrome) | [facility] | for Health | | | | | Procedures | Rd | and Healing, | | | | | CONSULT TO | [place], [place] | [facility] | | | | | PAIN CENTER | [address] | 1,15th Floor | | | | | | Phone: | [place], [place] | | | | | | [phone] | [address] | | | | | | Fax: | Phone: | | | | | | [phone] | [phone] | | | | | | | Fax: | | | | | | | [phone] | +--------+--------+ + + + + Reason [...] | | | | | symptom | [place] | [place] | | | | | associated | [place] | Aravind | | | | | with female | Urology [address] | Pavilion, 7th | | | | | genital | [address] | floor | | | | | organs | [address] [place], | [place], [place] | | | | | Unspecified | [place] [address] | [address] | | | | | urinary | Phone: | Phone: | | | | | incontinence | [phone] | [phone] | | | | | | Fax: | Fax: | | | | | | [phone] | [phone] | +--------+--------+ + + + + Encounter Details +--------+---------+ + + + | Date | Type | Department | Care Team | Description | +--------+---------+ + + + | 11/29/ | Office | [facility] | Britta Hankins MD | PPS (pelvic pain | | 2013 | Visit | [facility] | [address] | syndrome) (Primary | | | | Pavilion [address] [place], | Dx); Depression with | | | | [address] | [place] [address] | suicidal ideation; | | | | [place], 7th floor | [phone] | Recurrent UTI; | | | | [place], [place] | | Hypoestrogenism | | | | [address] | | | | | | [phone] | | | +--------+---------+ + + + [...] 4. Referral to pain service here at [facility] 5. Let me know if you [...] veronica babcock Lizzy. He lives here in [place] so he is not fully aware of her recent health issues but billy quiroz did help in providing some of his mother's past history. 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 Long gold, she was hospitalized at [facility] in 2005 for a Vicodin overdose. [...] speaker, a good grandmother". Her physicians in [place] and elsewhere will not pre scribe pain [...] until she was able to leave her [employer] house at age 20. Her aunt recently [...] estrogenization of the vulvova ginal tissues; negative ELECTRICAL SOLDERER; no hypospadias of the urethra; + tenderness [...] F/U with Dr. Stover on return to [place]. I am Chirstine Monterroso functioning as a scribe for Dr. Britta Hankins. Christine Monterroso [facility] [address] [place] [address] Donald [facility]cad[facility] [address] I have reviewed, verified, and amended the [...] for afternoon appointments. Britta Hankins M.D., FACS Shampoo Technician [facility] documented in this encoun [...]
--- OUTSIDE RECORDS SUMMARY | ~2020-05-30 | XMS | Encounter Summary ---
Demographics + + + | Address | [address] | | | [place] [address] | + + + | Home Phone [...] Providers + +------+ + | Care Biomedical Service Engineer Name | Role | Phone [...] | unspecified type | | | | [facility] | | | | | | and Healing, | | | | | | Building [address] | | | | | | [place], [place] | | | | | | [address] | | | | | | [phone] | | | +--------+------+ + + + [...] NON-HDL | 54 | <=130 mg/dL | [facility] | | | CHOLESTEROL | | [...] LIPID LAB | [address] | [place], [place] | | | | [address] | [address] | | + + + + + documented in this encounter Visit Diagnoses + + | Diagnosis | + + | Chest pain, unspecified type | + + documented in this encounter"
--- OUTSIDE RECORDS SUMMARY | ~2020-05-30 | XMS | Encounter Summary ---
Demographics + + + | Address | [address] | | | [place] [address] | + + + | Home Phone [...] Team Providers + +------+ + | Care Generating Station Mechanic Name | Role | Phone | [...] | | [address] | [place] [address] | | | | | [place] | [phone] | | | | | [address] | | | | | | [phone] | | | +--------+ + + + [...] care andrés barakat sent via Certified mail# [phone]. documented in this encounter Plan of Treatment [...] TOURE | | | | | | [place] [address] | | | | | | [phone] | | | | | | | | +--------+---------+ + + + documented as of this encounter Visit Diagnoses Not on filedocumented in this encounter"
--- OUTSIDE RECORDS SUMMARY | ~2020-05-30 | XMS | Encounter Summary ---
Demographics + + + | Address | [address] | | | [place] [address] | + + + | Home Phone [...] Team Providers + +------+ + | Care Theatre Arts Professor Name | Role | Phone | [...] + + | 08/03/ | Surgery | [facility] | Maykel Hutchins MD | LAMINOTOMY THORACIC | | 2019 | | [facility] | [address] | / LUMBAR W/ | | | | OPERATING ROOM [address] | [place], [place] | PLACEMENT SPINAL | | | | [address] | [phone] | CORD STIMULATOR | | | | [place], [place] | | | | | | [address] | | | | | | [phone] | | | +--------+---------+ + + + [...] might be different from t he original. [facility]. 08/04/2019 DISCHARGE SUMMARY PATIENT NAME: Kori Mendezwthrop : 1945 TODAY'S DATE: 08/16/2019 Primary Care [...] before and the morning of surgery. aka: VIPINICLENS clonazePAM 1 mg tablet Take 1-2 mg [...] by elevating your feet Date Last Reviewed: 0901-6354 [employer]. [address] [place] [address], [place] [address]. All righ ts reserved. This information is not intended as a substitute for professional medical care. Always follow your healthcare professional's instructions. Acetaminophen; Hydrocodone tablets or capsules Brand Names: Anexsia, Lorcet, Lorcet HD, Lorcet Plus, Lortab, [place], Verdrocet, Vicodin, Vi codin ES, Vicodin HP, [...] information carefully each time. Talk to your die cut operator regarding the use of this medicine in children. Special care may be needed. What side effects may I notice from receiving this medicine? Side effects that you should report to your doctor or health resident care associate as soon as p ossible: allergic reactions [...] to your doctor or health resident care associate if they continue or are bothersome): constipation [...] to an official disposal site. Contact the [facility] at [phone] or your [facility] government to find a site. If [...] this medicine? Tell your doctor or health resident care associate if your pain does not go away, [...] Decreased | | | | | | [facility] current | Responsiveness (May | | | [...] Faria MSW - 08/04/2019 2:12 PM PDTCase broadcast operations manager sent out Home Health order to Kadi Carpenter today. The patient would need to follow up with patient on Tuesday. Electronical ly signed by ANGELO Escudero at 08/04/2019 2:13 PM Julien Luevano ARNP - 08/04/2019 8:41 AM PDT Kori Caputo Joanne is a 74 y.o. female patient s/p SCS placement with thoracic sequeira inectomy yesterday. Stayed overnight as patient lives alone. She has a friend that will pick her up today to go home to [facility]. Past Medical History: Diagnosis Date Acid reflux disease Acute renal failure ([facility]) April 2013 Adverse effect of anesthesia hx hallucinations after anesthesia x 3 yrs ago. Anesthesia hallucinated after bladder repair Arthralgia Arthritis Asthma Asthma Back pain Cancer ([facility]) 2004 breast Cataract Cerebrovascular accident (CVA) ([facility]) no per pt Chronic back pain Chronic back pain Chronic constipation Concussion 07/2015 Preceeded by seizure Constipation COPD (chronic obstructive pulmonary disease) ([facility]) Degenerative disc disease Depression Depression Diabetes mellitus ([facility]) Diabetes mellitus, type 2 ([facility]) diet controlled Diabetes type 2, controlled ([facility]) diet controlled Diarrhea Disorder [...] Scoliosis Scoliosis of lumbar spine 04/17/2014 Seizure ([facility]) one due to meds, [...] Date Acid reflux disease Acute renal failure ([facility]) April 2013 Adverse effect of anesthesia hx hallucinations after anesthesia x 3 yrs ago. Anesthesia hallucinated after bladder repair Arthralgia Arthritis Asthma Asthma Back pain Cancer ([facility]) 2004 breast Cataract Cerebrovascular accident (CVA) ([facility]) no per pt Chronic back pain Chronic back pain Chronic constipation Concussion 07/2015 Preceeded by seizure Constipation COPD (chronic obstructive pulmonary disease) ([facility]) Degenerative disc disease Depression Depression Diabetes mellitus ([facility]) Diabetes mellitus, type 2 (HCC) diet controlled Diabetes type 2, controlled ([facility]) diet controlled Diarrhea Disorder [...] Procedure: KYPHOPLASTY; Surgeon: Alfredo Casillas DO; Location: [facility] MAIN OR; Service: Pa in [...] level: Not on file Occupational History Occupation: [employer] Tobacco Use Smoking status: Never Smoker Smokeless [...] SCStimulator device placed. Surgeon: Maykel Hutchins MD Cleaner(s): CATHIE Earl Anesthesia: General endotrachial anesthesia Estimated [...] at 08/03/2019 3:34 PM PDT Plan of Edwin - Chiquita Ledbetter PT - 08/03/2019 3:00 PM PDT [facility] Physical Therapy OPIB Plan of Care Initial Evaluation Note Patient Name: Kori LeighFafelipehrradha Date of Onset of Illness/Injury or Date [...] HOB elevated Supine to Sit, Level of [place]: modified independent Sit to Supine, Level of [place]: modified independent Impairments: strength decreased Transfers Bed-Chair, Level of [place]: minimal assist (75% patient effort) Chair-Bed, Level of [place]: minimal assist (75% patient effort) Hbr-Mjkcz-Smf, Assistive Device: cane (straight, single point) Sit-Stand, Level of [place]: contact guard assist Stand-Sit, Level of [place]: contact guard assist Wbt-Vvvgt-Btl, Assistive Device: cane (straight, single point) Safety Issues: balance decreased during turns, step length decreased, weight-shifting abili ty decreased Impairments: strength decreased, impaired balance Gait Level of [place]: contact guard assist, minimal assist (75% patient [...] LTG Status new at 08/03/2019 1500 LTG [place] Level modified independent at 08/03/2019 1500 LTG Assistive Device cane (straight, single point) at 08/03/2019 1500 Gait Goal Most Recent Value LTG Status new at 08/03/2019 1500 LTG [place] Level modified independent at 08/03/2019 1500 LTG Assistive Device cane (straight, single point) at 08/03/2019 1500 LTG Distance (feet) 150 at 08/03/2019 1500 Stair Goal Most Recent Value LTG Status new at 08/03/2019 1500 LTG [place] Level modified independent at 08/03/2019 1500 LTG [...] [place] | | | | | | [id number] | | | | | | | | +--------+---------+ + + + | 06/26/ | Office | Cardiology | Reneecabrera Monserrat | | | 2020 | Visit | | [address] | | | | | | [address] | | | | | | [place] [address] | | | | | | [phone] | | | | | | | [...] | | | Needs | | | MAINSPRING STRIP INSPECTOR | | | reques | | | [...] | | | POC | performed at [facility];[address] | | LABORATORY | | | | [facility];[place], [place] | | | | | | [address] | | | | + + + + + + + + | Specimen | + + | | + + + + + + + | Performing | Address | City/State/Zipcode | Phone Number | | Organization | | | | + + + + + | [facility] | [address] | [place] [address] | [phone] | + + + + + POC Glucose (08/03/2019 4:15 PM PDT) + + + + + + | Component | Value | Ref Range | Performed | Pathologist | | | | | At | Signature | + + + + + + | Glucose, | 99Comment: Testing | 65 - 99 mg/dL | [facility] | | | POC | performed at [facility];[address] | | LABORATORY | | | | [address];[place] | | | | | | [address] | | | | + + + + + + + + | Specimen | + + | | + + + + + + + | Performing | Address | City/State/Zipcode | Phone Number | | Organization | | | | + + + + + | [facility] | [address] | [place] [address] | [phone] | + + + + + POC [...] | | | POC | performed at [facility];[address] | | LABORATORY | | | | [address];[place] | | | | | | [address] | | | | + + + + + + + + | Specimen | + + | | + + + + + + + | Performing | Address | City/State/Zipcode | Phone Number | | Organization | | | | + + + + + | [facility] | [address] | [place] [address] | [phone] | + + + + + POC [...] | | | POC | performed at [facility];[address] | | LABORATORY | | | | [address];[place] | | | | | | [address] | | | | + + + + + + + + | Specimen | + + | | + + + + + + + | Performing | Address | City/State/Zipcode | Phone Number | | Organization | | | | + + + + + | [facility] | [address] | [place] [address] | [phone] | + + + + + [place] [...] | | | POC | performed at [facility];[address] | | LABORATORY | | | | [address];[place] | | | | | | [address] | | | | + + + + + + + + | Specimen | + + | | + + + + + + + | Performing | Address | City/State/Zipcode | Phone Number | | Organization | | | | + + + + + | [facility] | [address] | [place] [address] | [phone] | + + + + + POC Glucose (08/03/2019 9:14 AM PDT) + + + + + + | Component | Value | Ref Range | Performed | Pathologist | | | | | At | Signature | + + + + + + | Glucose, | 80Comment: Testing | 65 - 99 mg/dL | [facility] | | | POC | performed at [facility];[address] | | LABORATORY | | | | [address];[place] | | | | | | [address] | | | | + + + + + + + + | Specimen | + + | | + + + + + + + | Performing | Address | City/State/Zipcode | Phone Number | | Organization | | | | + + + + + | [facility] | [address] | [place] [address] | [phone] | + + + + + Type [...] + + + | BB BAND | [id number] | | [facility] | | | | | | LABORATORY | | + + + + + + | BB BAND | Testing performed at | | [place] | | | | [facility];[address] | | LABORATORY | | | | [address];[place] [address] | | | | + + + + + + + + | Specimen | + + | Blood | + + + + + + + | Performing | Address | City/State/Zipcode | Phone Number | | Organization | | | | + + + + + | [facility] | [address] | [place] [address] | [phone] | + + + + + POC Glucose (08/03/2019 7:23 AM PDT) + + + + + + | Component | Value | Ref Range | Performed | Pathologist | | | | | At | Signature | + + + + + + | Glucose, | 77Comment: Testing | 65 - 99 mg/dL | [facility] | | | POC | performed at [facility];[address] | | LABORATORY | | | | [address];[place] | | | | | | [address] | | | | + + + + + + + + | Specimen | + + | | + + + + + + + | Performing | Address | City/State/Zipcode | Phone Number | | Organization | | | | + + + + + | [facility] | [address] | [place] [address] | [phone] | + + + + + documented [...]
--- OUTSIDE RECORDS SUMMARY | ~2020-05-30 | XMS | Encounter Summary ---
Demographics + + + | Address | [address] | | | [place] [address] | + + + | Home Phone [...] Team Providers + +------+ + | Care Building Drafter Name | Role | Phone | + +------+ + | Miquel Calhoun MD | PCP | | + +------+ + Encounter Details +--------+ + + + + | Date | Type | Department | Care Team | Description | +--------+ + + + + | 10/18/ | Hospital | [facility] | Shay Dietz | | | 2013 | Encounter | MED CTR XRAY [address] | T, MD [address] | | | | | [place] | [address] [place], [place] | | | | | [place] [address] | [address] | | | | | [phone] | | | +--------+ + + + [...] [place] | | | | | | [address] | | | | | | | | +--------+---------+ + + + | 06/26/ | Office | Cardiology | Monserrat Weems | | | 2019 | Visit | | [address] | | | | | | [address] | | | | | | [place] [address] | | | | | | [phone] | | | | | | | [...] Performed At | + + + | [facility] Diagnostic Imaging | [place] | | Department [address] [facility] [place] | [facility] | | [ rep [address]] [ rep [facility] | | st zip] Signed | - IMAGING | | | | | Patient Name: KORI HARMON | | | Physician: OMID : 1945 Age: 68 Sex: F Unit | | | #: [id number] Exam Date: 10/18/13 Location: | | | [facility] Report #: [id number] Page: | | | %(RAD)RES..mtdd.print.filter("pg") of %(RAD) | | | RES..mtdd.print.filter("tpg") | | | | | | Accession Number: [id number] | | | LUMBAR MEDIAL BRANCH BLOCKS, [...] Transcribed Date/Time: | | | 10/18/2013 19:14 Custom Designer: | | | <<Signature on File>> | | | Shay Mukherjee | | | MD J Luis10/22/13 0756 <Electronically signed by Shay Mukherjee | | | J Luis SALGADO> Shay Dietz MD 10/18/13 1825 | | | Custom Designer: Lono Vnnncdzchtbut75/19/13 9774 | | | PROVIDER,UNKNOWN | | + + + + + + + + | Performing | Address | City/State/Zipcode | Phone Number | | Organization | | | | + + + + + | [facility] | [address] | [place] | [phone] | | [facility] | | [address] | | | - IMAGING | | | | + + + + + documented in this encounter Visit Diagnoses Not on filedocumented in this encounter
--- OUTSIDE RECORDS SUMMARY | ~2020-05-30 | XMS | Encounter Summary ---
Demographics + + + | Address | [address] | | | [place] [address] | + + + | Home Phone [...] Providers + +------+ + | Care Senior Advisor Name | Role | Phone | + +------+ + | Miquel Calhoun MD | PCP | | + +------+ + Encounter Details +--------+ + + + + | Date | Type | Department | Care Team | Description | +--------+ + + + + | 11/05/ | Telephone | [facility] | Khushbu Cortez, | | | 2013 | | [facility] | [place], [place] | | | | | [address] | [address] | | | | | [address] | | | | | | [place], [address] [place] [address] | | | | | | [place], [place] | | | | | | [address] | | | | | | [phone] | | | +--------+ + + + [...]
--- OUTSIDE RECORDS SUMMARY | ~2020-05-30 | XMS | Encounter Summary ---
Demographics + + + | Address | [address] | | | [place] [address] | + + + | Home Phone [...] Team Providers + +------+ + | Care Softwood Faller Name | Role | Phone | + [...]
--- OUTSIDE RECORDS SUMMARY | ~2020-05-30 | XMS | Encounter Summary ---
Demographics + + + | Address | [address] | | | [place] [address] | + + + | Home Phone [...] Team Providers + +------+ + | Care Double Backer Name | Role | Phone | + +------+ + | Romy De La Paz MD | PCP | | + +------+ + Reason for Visit + +--------+ + | Reason | Onset | Comments | | | Date | | + +--------+ + | Imaging Only | 07/19/ | | | | 2019 | | + +--------+ + Encounter Details +--------+ + + + + | Date | Type | Department | Care Team | Description | +--------+ + + + + | 07/19/ | Telephone | [facility] | Gabi Guzman | Imaging Only | | 2018 | | NEUROSCIENCE CENTER | [address] | | | | | ORTHOPEDIC SPINE | [address] | | | | | [address] | [place] [address] | | | | | [place], [place] | [phone] | | | | | [address] | | | | | | [phone] | | | +--------+ + + + [...] Telephone Encounter - Therese Fernandez CMA - 07/24/2019 2:06 PM PDTImages were requested b y fax. elephone Enco unter - Gabi Guzman ARNP - 07/24/2019 1:49 PM PDTTh[facility]. Please call and have the images pushed so I ca n review this. Thanks. elephone Encounter - Niki Pizarro RN - 07/20/2019 9:28 AM PDTSpoke with patient . Informed patient per KANG Alcantar chest x-ray results show the base of the left lung is slight flat which can be a small amount of fluid in the base of the lung causing the fla ttening or it can mean the lung is slightly collapsed at the bottom. This can be normal giv en the patient's age. Lungs are otherwise clear and not further treatment is needed at this time. Patient had questions regarding battery life for spinal cord stimulator. Informed patient I thought it lasted for 10 years. Patient was concerned with the size of the battery and dimitry t she would not be able to lay on her back to sleep. Explained Dr. Hutchins would speak with charlene ruiz before surgery and determine the best placement for the battery. Patient would like to know results of thoracic and lumbar x-ray on 07/04/19. Informed patie nt I sent a message to Gabi regarding results and have not had a response. Explained I w ill speak with a different provider in clinic to get results and call patient back. Kori verbalized understanding and agreed with the plan. Images done at [facility], faxed request to have thoracic and lumbar x-ray pushed to [facility] and imaging. elephone Encounter - Gabi Guzman ARNP - 07/19/2019 5:51 PM PDTChest xray result shows that the posterior base of the left lung is slightly flat which suggests either a small effusion (small amount of fluid at the base causing the flattening) or atelectasis (meaning that the lung is just minimally collapsed at the bottom). This can be a normal variant given her age . Otherwise lungs are clear. No further treatment is needed at this time.Electronically sign ed by KANG Alaniz at 07/19/2019 5:56 PM PDTdocumented in this encounter Plan of Treatment +--------+---------+ + + + | Date | Type | Specialty | Care Team | Description | +--------+---------+ + + + | 06/18/ | Office | Pain Medicine | Denys Sibley, | | | 2019 | Visit | | [address] | | | | | | [place] | | | | | | [address] | | | | | | | | +--------+---------+ + + + | 06/26/ | Office | Cardiology | Monserrat Weems | | 2019 | Visit | | [address] | | | | | [address] | | | | | | [place] [address] | | | | | | [phone] | | | | | | | | +--------+---------+ + + + documented as of this encounter Visit Diagnoses Not on filedocumented in this encounter"
--- OUTSIDE RECORDS SUMMARY | ~2020-05-30 | XMS | Encounter Summary ---
Demographics + + + | Address | [address] | | | [place] [address] | + + + | Home Phone [...] Providers + +------+ + | Care Business Manager [employer] Name | Role | [...] | | 2015 | Encounter | at [facility] [address] | [address] | | | | | [facility] for | [address] [place], | | | | | Health and Healing, | [place] [address] | | | | | [facility] | [phone] | | | | | Floor [place], [place] | | | | | | [address] | | | | | | [phone] | | | +--------+ + + + [...]
--- OUTSIDE RECORDS SUMMARY | ~2020-05-30 | XMS | Encounter Summary ---
Demographics + + + | Address | [address] | | | [place] [address] | + + + | Home Phone [...] Providers + +------+ + | Care House Painting Instructor Name | Role | Phone | [...] | | ORTHOPEDIC SPINE | [address] [place], [place] | | | | | [address] | [address] | | | | | [place], [place] | | | | | | [address] | | | | | | [phone] | | | +--------+ + + + [...] She gave verbal understanding. elephone Encounter - Keyur Ohara - 07/24/2019 8:48 AM PDTLauririchie, is calling [...] the call to a jose m franco plant operator helper was caller made aware that if at [...] [place] | | | | | | [id number] | | | | | | | | +--------+---------+ + + + | 06/26/ | Office | Cardiology | Monserrat Weems | | | 2019 | Visit | | [address] | | | | | | [address] | | | | | | [place] [address] | | | | | | [phone] | | | | | | | | +--------+---------+ + + + documented as of this encounter Visit Diagnoses Not on filedocumented in this encounter
--- OUTSIDE RECORDS SUMMARY | ~2020-05-30 | XMS | Encounter Summary ---
Demographics + + + | Address | [address] | | | [place] [address] | + + + | Home Phone [...] Team Providers + +------+ + | Care Specialties Operator Name | Role | Phone | [...] + + | 02/10/ | Telephone | [facility] | Denys Sibley, | Appointment | | 2020 | | [facility] | DO [address] | | | | | DOLOROLOGY [address] | [place], [place] | | | | | [address] | [address] | | | | | [place], [place] | | | | | | [address] | | | | | | [phone] | | | +--------+ + + + [...] Miscellaneous Notes Telephone Encounter - Rupa Nye, Grinder Chipper - 02/11/2020 5:17 PM PDTCalled and spoke [...] [place] | | | | | | [address] | | | | | | | | +--------+---------+ + + + | 06/26/ | Office | Cardiology | Monserrat Weems | | 2019 | Visit | | [address] | | | | | | [address] | | | | | | [place] [address] | | | | | | [phone] | | | | | | | | +--------+---------+ + + + documented as of this encounter Visit Diagnoses Not on filedocumented in this encounter"
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
--- OUTSIDE RECORDS SUMMARY | ~2020-05-30 | XMS | Encounter Summary ---
Demographics + + + | Address | [address] | | | [place] [address] | + + + | Home Phone [...] Team Providers + +------+ + | Care Rougher Helper Name | Role | Phone | [...] for | | 2016 | | at [facility] [address] | [address] | new pt appt) | | | | Brittany Tuthill for | [address] [place], | | | | | Health and Healing, | [place] [address] | | | | | [facility] | [phone] | | | | | Floor [place], [place] | | | | | | [address] | | | | | | [phone] | | | +--------+ + + + [...]
--- OUTSIDE RECORDS SUMMARY | ~2020-05-30 | XMS | Encounter Summary ---
Demographics + + + | Address | [address] | | | [place] [address] | + + + | Home Phone [...] Team Providers + +------+ + | Care Ice Cream Maker Name | Role | Phone | [...] | | Required | | Sacroiliitis | [facility] [address] | [address] | | | | | (HCC) | [place], | [address] | | | | | Scoliosis of | [place] [address] | [place], | | | | | lumbar | Phone: | [place] [address] | | | | | spine, | [phone] | Phone: | | | | | unspecified | Fax: | [phone] | | | | | scoliosis | [phone] | Fax: | | | | | type | | [phone] | | | | | Foraminal | [...] low back | PA-C [address] | [place], [place] | | | | | pain with | [address], | [address] | | | | | right-sided | [address] | Phone: | | | | | sciatica | [place] | [phone] | | | | | Facet | [address] | Fax: | | | | | arthritis of | Phone: | [phone] | | | | | lumbar | [phone] | | | | | | region | Fax: | | | | | | 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 Sj Valdes M.D. [address] [place] [address], [address] [address] NEUROSURGERY HISTORY AND PHYSICAL EXAMINATION CHIEF COMPLAINT: [...] with short or terminal gauger supervisor memory. MOTOR EXAM: (5 IS NORMAL) * Indicates pain limited MUSCLE/ MOVEMENT: RIGHT LEFT Deltoids 5 4+ Biceps 5 5 Triceps 5 5 Wrist Flexion 5 5 Wrist Extension 5 5 Median Intrinsics 5 4 Ulnar Intrinsics 5 4 Dairy Equipment Installer Strength 5 4 Hip Flexion 5 4* [...] she continues to see a psychologist in [place]. Despite her continued evaluation, I do not [...] | | | | | | [place] | | | | | | [address] | | | | | | | | +--------+---------+ + + + | 06/26/ | Office | Cardiology | FaustinaMonserrat | | | 2019 | Visit | | [address] | | | | | | [address] | | | | | | [place] [address] | | | | | | [phone] | | | | | | | [...] | | | | | | region ([facility]) Left | | | | | | [...]
--- OUTSIDE RECORDS SUMMARY | ~2020-05-30 | XMS | Encounter Summary ---
Demographics + + + | Address | [address] | | | [place] [address] | + + + | Home Phone [...] Providers + +------+ + | Care Web Content Coordinator Name | Role | Phone | + +------+ + | Miquel Calhoun MD | PCP | | + +------+ + Encounter Details +--------+ + + + + | Date | Type | Department | Care Team | Description | +--------+ + + + + | 09/17/ | Telephone | [facility] | Khushbu Cortez, | | | 2012 | | [facility] | [place], [place] | | | | | [address] | [address] | | | | | [address] | | | | | | [place], [address] [place] [address] | | | | | | [place], [place] | | | | | | [address] | | | | | | [phone] | | | +--------+ + + + [...]
--- OUTSIDE RECORDS SUMMARY | ~2020-05-30 | XMS | Encounter Summary ---
Demographics + + + | Address | [address] | | | [place] [address] | + + + | Home Phone [...] Team Providers + +------+ + | Care Expressive Music Therapist Name | Role | Phone | + +------+ + PCP | Unavailable | + +------+ + Encounter Details +--------+ + + + + | Date | Type | Department | Care Team | Description | +--------+ + + + + | 09/18/ | Abstract | [facility] [place] | [facility], | | | 2011 | | GASTROENTEROLOGY | KANG Quevedo [address] | | | | | [address] | [address] | | | | | [address] [place], [place] | [place], [place] | | | | | [address] | [address] | | | | | [phone] | | | +--------+ + + + [...] [place] | | | | | | [address] | | | | | | | | +--------+---------+ + + + | 06/26/ | Office | Cardiology | Monserrat Weems | | | 2019 | Visit | | [address] | | | | | | [address] | | | | | | [place] [address] | | | | | | [phone] | | | | | | | | +--------+---------+ + + + documented as of this encounter Visit Diagnoses Not on filedocumented in this encounter"
--- OUTSIDE RECORDS SUMMARY | ~2020-05-30 | XMS | Encounter Summary ---
Demographics + + + | Address | [address] | | | [place] [address] | + + + | Home Phone | | + + + | Preferred Language | Unknown | + + + | Marital Status | Single | + + + | Church Affiliation | NON | + + + [...] Providers + +------+ + | Care Therapeutic Specialist Name | Role | Phone | [...] | | 2012 | | [facility] | [address] | | | | | [address] | [facility] | | | | | [address] | [place] [address] | | | | | [facility] | [phone] | | | | | [place], [place] | | | | | | [address] | | | | | | [phone] | | | +--------+ + + + [...]
--- OUTSIDE RECORDS SUMMARY | ~2020-05-30 | XMS | Encounter Summary ---
Demographics + + + | Address | [address] | | | [place] [address] | + + + | Home Phone [...] Team Providers + +------+ + | Care Picking Machine Operator Name | Role | Phone [...] + + | 04/11/ | Telephone | [facility] | Alfredo Casillas DO | Appointment | | 2020 | | [facility]THO [facility]TS | [address] [facility] | | | | | MEDICINE PAIN [address] | [place] [address] | | | | | [facility], | [phone] | | | | | [place] [address] | | | | | | [phone] | | | +--------+ + + + [...] Miscellaneous Notes Telephone Encounter - Jennifer Hicks, Turntable Engineer - 04/11/2020 11:52 AM PDTI called bethany kirk to inform her that for her appointment on 04/15 she should bring a copy of her recent im ages she had done to her appointment. We are going to need them. I left a Message to call u s back if she has questionsElectronically signed by Jennifer Back Caro Turntable Engineer at 2019 11:54 AM PDTdocumented in this encounter Plan of Treatment +--------+---------+ + + + | Date | Type | Specialty | Care Team | Description | +--------+---------+ + + + | 06/18/ | Office | Pain Medicine | Denys Sibley, | | 2019 | Visit | | [address] | | | | | | [facility] [place] | | | | | | [address] | | | | | | | | +--------+---------+ + + + | 06/26/ | Office | Cardiology | Monserrat Weems | | 2019 | Visit | | [address] | | | | | | [address] | | | | | | [place] [address] | | | | | | [phone] | | | | | | | | +--------+---------+ + + + documented as of this encounter Visit Diagnoses Not on filedocumented in this encounter"
--- OUTSIDE RECORDS SUMMARY | ~2020-05-30 | XMS | Encounter Summary ---
Demographics + + + | Address | [address] | | | [place] [address] | + + + | Home Phone [...] Team Providers + +------+ + | Care Peoplesoft Hrms Developer Name | Role | Phone | [...] [address] [place] | | | | | [place] | [address] | | | | | [address] | | | | | | [phone] | | | +--------+ + + + [...] [place] | | | | | | [address] | | | | | | | | +--------+---------+ + + + | 06/26/ | Office | Cardiology | Monserrat Weems | | | 2019 | Visit | | [address] | | | | | | [address] | | | | | | [place] [address] | | | | | | [phone] | | | | | | | | +--------+---------+ + + + documented as of this encounter Visit Diagnoses Not on filedocumented in this encounter"
--- OUTSIDE RECORDS SUMMARY | ~2020-05-30 | XMS | Encounter Summary ---
Demographics + + + | Address | [address] | | | [place] [address] | + + + | Home Phone [...] Team Providers + +------+ + | Care Payroll Human Resources Assistant Name | Role | Phone | + +------+ + | Miquel Calhoun MD | PCP | | + +------+ + Encounter Details +--------+ + + + + | Date | Type | Department | Care Team | Description | +--------+ + + + + | 10/18/ | Telephone | [facility] | Khushbu Cortez, | | | 2012 | | [facility] | [place], [place] | | | | | [address] | [address] | | | | | [address] | | | | | | [place], [address] [place] [address] | | | | | | [place], [place] | | | | | | [address] | | | | | | [phone] | | | +--------+ + + + [...]
--- OUTSIDE RECORDS SUMMARY | ~2020-05-30 | XMS | Encounter Summary ---
Demographics + + + | Address | [address] | | | [place] [address] | + + + | Home Phone [...] Team Providers + +------+ + | Care Site Damage Prevention Technician Name | Role | Phone | + +------+ + PCP | Unavailable | + +------+ + Encounter Details +--------+ + + + + | Date | Type | Department | Care Team | Description | +--------+ + + + + | 09/22/ | Hospital | [facility] | Shay Dietz | | | 2010 | Encounter | MED CTR XRAY [address] | [address] | | | | | [place] | [address] [place], [place] | | | | | [place] [address] | [address] | | | | | [phone] | | | +--------+ + + + [...] [place] | | | | | | [address] | | | | | | | | +--------+---------+ + + + | 06/26/ | Office | Cardiology | Monserrat Weems | | | 2019 | Visit | | [address] | | | | | | [address] | | | | | | [place] [address] | | | | | | [phone] | | | | | | | [...] Performed At | + + + | [facility] Diagnostic Imaging Department | [facility] | | [address] [facility] | [facility] | | LUMBAR FACET INJECTIONS, | DIAG [...] Transcribed Date/Time: | | | 09/22/2011 18:07 Crnp: <Electronically Signed | | | by Shay Dietz MD> 09/27/11 1035 | | + + + + + | Procedure Note | + + | Reji Pacheco Conversion - 12/07/2013 4:17 PM [facility] | | Diagnostic Imaging Department [address] [facility] | | LUMBAR FACET INJECTIONS, 09/22/2011 CLINICAL [...] 17:09 | |Transcribed Date/Time: 09/22/2011 18:07 | |Crnp: | |<Electronically Signed by Shay Dietz MD> 09/27/11 1035 | + + + +---------+ + + | Performing | Address | City/State/Zipcode | Phone Number | | Organization | | | | + +---------+ + + | [facility] [facility] | | | | | [facility] | | | | + +---------+ + + documented in this encounter Visit Diagnoses Not on filedocumented in this encounter"
--- OUTSIDE RECORDS SUMMARY | ~2020-05-30 | XMS | Encounter Summary ---
Demographics + + + | Address | [address] | | | [place] [address] | + + + | Home Phone [...] Providers + +------+ + | Care Automobile And Property Underwriter Name | Role | Phone | + +------+ + | Romy De La Paz MD | PCP | | + +------+ + Encounter Details +--------+ + + + + | Date | Type | Department | Care Team | Description | +--------+ + + + + | 06/21/ | Orders Only | [facility] | HaseebjoyAlfredo coffey DO | | | 2017 | | [facility] X[address] | [address] | | | | | [address] | [place] [address] | | | | | [place], [place] | [phone] | | | | | [address] | | | | | | [phone] | | | +--------+ + + + [...] [address] | | | | | | [place], [place] | | | | | | [address] | | | | | | | | +--------+---------+ + + + | 06/26/ | Office | Cardiology | FaustinaMonserrat | | | 2019 | Visit | | [address] | | | | | | [address] | | | | | | [place] [address] | | | | | | [phone] | | | | | | | [...]
--- OUTSIDE RECORDS SUMMARY | ~2020-05-30 | XMS | Encounter Summary ---
Demographics + + + | Address | [address] | | | [place] [address] | + + + | Home Phone [...] Providers + +------+ + | Care Chemical Manager Name | Role | Phone | [...] + + | 11/01/ | Office | [facility] | Shay Dietz | Back pain (Primary | | 2012 | Visit | PHYSIATRY [address] | [address] | Dx); BACK PAIN, | | | | [address] | [place], [place] | LUMBAR; | | | | [place] | [address] | OSTEOARTHRITIS, | | | | [address] | | LUMBOSACRAL SPINE; | | | | [phone] | | DISC DISEASE, | | | [...] - 11/01/2012 9:06 AM PSTFollow[facility] thirty minutes before your scheduled [...] off ice. Please also provide a driver license reviewing officer to take you home on the day [...] [place] | | | | | | [address] | | | | | | | | +--------+---------+ + + + | 06/26/ | Office | Cardiology | Monserrat Weems | | 2019 | Visit | | [address] | | | | | | [address] | | | | | | [place] [address] | | | | | | [phone] | | | | | | | [...]
--- OUTSIDE RECORDS SUMMARY | ~2020-05-30 | XMS | Encounter Summary ---
Demographics + + + | Address | [address] | | | [place] [address] | + + + | Home Phone [...] Providers + +------+ + | Care Control Director Name | Role | Phone | [...] + + | 04/14/ | Telephone | [facility] | Alfredo Casillas, DO | Screening For | | 2019 | | [facility]O [facility]TS | [address] [facility] | Communicable Disease | | | | MEDICINE PA[address] | [place] [address] | | | | | [facility], | | | | | [place] [address] | | | | | | [phone] | | | +--------+ + + + [...] Telephone Encounter - Liset De La Torre, Visualization Developer - 04/14/2020 9:25 AM PDT .LVM regarding [...] | | | | | [place] [address] | | | | | | [phone] | | | | | | | | +--------+---------+ + + + documented as of this encounter Visit Diagnoses Not on filedocumented in this encounter"
--- OUTSIDE RECORDS SUMMARY | ~2020-05-30 | XMS | Encounter Summary ---
Demographics + + + | Address | [address] | | | [place] [address] | + + + | Home Phone [...] Team Providers + +------+ + | Care Incubator Tender Name | Role | Phone | [...] + | 08/31/ | Telephone | [facility] | Maykel Hutchins MD | Back Pain (Severe) | | 2019 | | [facility] | [address] | | | | | ORTHOPEDIC SPINE | [address] [place], [place] | | | | | [address] | [address] | | | | | [place], [place] | | | | | | [address] | | | | | | [phone] | | | +--------+ + + + [...] Polanco I - 08/31/2019 3:59 PM PDTSherri ([facility]), is calling again for Back Pain [...] the call to a jose m franco montessori lead teacher was caller made aware that if at [...] [place] | | | | | | [id number] | | | | | | | | +--------+---------+ + + + | 06/26/ | Office | Cardiology | Monserrat Weems | | | 2019 | Visit | | [address] | | | | | | [address] | | | | | | [place] [address] | | | | | | [phone] | | | | | | | | +--------+---------+ + + + documented as of this encounter Visit Diagnoses Not on filedocumented in this encounter"
--- OUTSIDE RECORDS SUMMARY | ~2020-05-30 | XMS | Encounter Summary ---
Demographics + + + | Address | [address] | | | [place] [address] | + + + | Home Phone [...] + +------+ + | Care Manager Of Planning Name | Role | Phone | + +------+ + | Oxana Nye | PCP | | + +------+ + Encounter Details +--------+ + + + + | Date | Type | Department | Care Team | Description | +--------+ + + + + | 10/04/ | MyChart | Cardiology General | | Appointment Location | | 2015 | Encounter | at [facility] [address] | | Change: Effective | | | | Ave [facility] for | | October 31 | | | | Health and Healing, | | | | | | Building | | | | | | Floor [place], [place] | | | | | | [address] | | | | | | [phone] | | | +--------+ + + + [...]
--- OUTSIDE RECORDS SUMMARY | ~2020-05-30 | XMS | Encounter Summary ---
Demographics + + + | Address | [address] | | | [place] [address] | + + + | Home Phone [...] Team Providers + +------+ + | Care Medicaid Eligibility Specialist Name | Role | Phone [...] | | 2016 | Encounter | at [facility] [address] | [address] | test results | | | | [facility] for | [address] [place], | | | | | Health and Healing, | [place] [address] | | | | | [facility] | [phone] | | | | | Floor [place], [place] | | | | | | [address] | | | | | | [phone] | | | +--------+ + + + [...]
--- OUTSIDE RECORDS SUMMARY | ~2020-05-30 | XMS | Encounter Summary ---
Demographics + + + | Address | [address] | | | [place] [address] | + + + | Home Phone [...] Author + + + | Author | [facility] | + + + | Organization | [facility] | + + + | Address | Unknown | + + + | Phone | Unavailable | + + + Support + + +---------+ + | Name | Relationship | Address | Phone | + + +---------+ + | Royce Menchaca | ECON | Unknown | | + + +---------+ + Care Team Providers + +------+ + | Care Executive Associate Name | Role | Phone | + +------+ + | Oxana Ney | PCP | | + +------+ + Encounter Details +--------+ + + + + | Date | Type | Department | Care Team | Description | +--------+ + + + + | 03/12/ | MyChart | Cardiology General | Airam Fuchs MD | RE: My cholesterol | | 2016 | Encounter | at [facility] [address] | [address] | test results | | | | [facility] for | [address] [place], | | | | | Health and Healing, | [place] [address] | | | | | [facility] | [phone] | | | | | Floor [place], [place] | | | | | | [address] | | | | | | [phone] | | | +--------+ + + + [...]
--- OUTSIDE RECORDS SUMMARY | ~2020-05-30 | XMS | Encounter Summary ---
Demographics + + + | Address | [address] | | | [place] [address] | + + + | Home Phone [...] Team Providers + +------+ + | Care Falsework Builder Name | Role | Phone | [...] + + | 10/15/ | Office | [facility] | Denys Sibley, | Spinal stenosis of | | 2019 | Visit | [facility] | DO [address] | lumbosacral region | | | | [address] | [facility] [place] | (Primary Dx); Lumbar | | | | [address] [address] | [address] | region somatic | | | | [place], [place] | | dysfunction; | | | | [address] | | Intractable back | | | | [phone] | | pain; Chronic | | | [...] anterior chest wall ever y 72 hours. [place] 10/325 1 p.o. every 6 hours as [...] but not limited to physical therapy, healthcare technician, acupuncture, massage therapy, and nutritional healt h [...] general activity) Total score: (Printable questionnaires in Marshallese ) Interpretation of Total Score: PEG scores are used to track changes over time. It should de crease after therapy has begun. Last 4 PEG Scores: No flowsheet data found. Opioid Risk Tool (ORT): Total Score Pulse: 77 Resp: 16 BP: 113/57 SpO2: 100 % (From Chronic Pain tab; printable questionnaires in Marshallese) Interpretation of Total Score: 0 to 3 [...] Date Acid reflux disease Acute renal failure ([facility]) April 2013 Adverse effect of anesthesia hx hallucinations after anesthesia x 3 yrs ago. Anesthesia hallucinated after bladder repair Arthralgia Arthritis Asthma Asthma Back pain Cancer ([facility]) 2004 breast Cataract Cerebrovascular accident (CVA) ([facility]) no per pt Chronic back pain Chronic back pain Chronic constipation Concussion 07/2015 Preceeded by seizure Constipation COPD (chronic obstructive pulmonary disease) ([facility]) Degenerative disc disease Depression Depression Diabetes mellitus ([facility]) Diabetes mellitus, type 2 ([facility]) diet controlled Diabetes type 2, controlled ([facility]) diet controlled Diarrhea Disorder of [...] Scoliosis Scoliosis of lumbar spine 04/17/2014 Seizure ([facility]) one due to meds, two [...] Date Acid reflux disease Acute renal failure ([facility]) April 2013 Adverse effect of anesthesia hx hallucinations after anesthesia x 3 yrs ago. Anesthesia hallucinated after bladder repair Arthralgia Arthritis Asthma Asthma Back pain Cancer ([facility]) 2004 breast Cataract Cerebrovascular accident (CVA) ([facility]) no per pt Chronic back pain Chronic back pain Chronic constipation Concussion 07/2015 Preceeded by seizure Constipation COPD (chronic obstructive pulmonary disease) ([facility]) Degenerative disc disease Depression Depression Diabetes mellitus ([facility]) Diabetes mellitus, type 2 ([facility]) diet controlled Diabetes type 2, controlled ([facility]) diet controlled Diarrhea Disorder of [...] KYPHOPLASTY; Surgeon: Alfredo Casillas DO; Location: [facility] MAIN OR; Service: Pa in Management; Laterality: N/A; L5 FRACTURE SURGERY ANKLE HERNIA REPAIR HYSTERECTOMY HYSTERECTOMY LAMINECTOMY N/A 08/03/2019 Procedure: LAMINOTOMY THORACIC / LUMBAR W/ PLACEMENT SPINAL CORD STIMULATOR; Surgeon: Suly Hutchins MD; Location[place] [facility] [place] OTHER SURGICAL HISTORY [...] reviewed, listed controlled substances are consistent with [facility] prescriptions and patient [...] = high risk) Daily Opioid Dose = [place] 10/325 1 p.o. every 4 hours. Discontinue [...] of the fentanyl patch inc reased her [place] to every 4 hours. Patient understands this [...] to physical therapy, massage therapy, acupuncture, healthcare technician, along with niki mmended psychological counseling, either privately, or in group sessions offered by private care individuals, community services, or rastafari organizations. Appropriate referrals were made at patient [...] weeks. This document has been created using [employer] Voice Recognition software and [employer]. The entry has been reviewed for content and accuracy, but there may still exist "sound alike" dye range tender word errors and/or unintended additions and deletions. [...] [place] | | | | | | [id number] | | | | | | | | +--------+---------+ + + + | 06/26/ | Office | Cardiology | Monserrat Weems | | | 2019 | Visit | | [address] | | | | | | [address] | | | | | | [place] [address] | | | | | | [phone] | | | | | | | [...]
--- OUTSIDE RECORDS SUMMARY | ~2020-05-30 | XMS | Encounter Summary ---
Demographics + + + | Address | [address] | | | [place] [address] | + + + | Home Phone [...] Providers + +------+ + | Care Mail Distributor Name | Role | Phone | + +------+ + | Romy De La Paz MD | PCP | | + +------+ + Encounter Details +--------+ + + + + | Date | Type | Department | Care Team | Description | +--------+ + + + + | 07/18/ | Hospital | [facility] | Maykel Hutchins MD | | | 2019 | Encounter | [facility] XRAY | [address] | | | | | [address] | [place], [place] | | | | | [place], [place] | [address] | | | | | [address] | | | | | | [phone] | | | +--------+ + + + [...] Decreased | | | | | | halfway current | [...] Office | Pain Medicine | Denys Sibley | | | 2019 | Visit | | DO [address] | | | | | | [place], [place] | | | | | | [address] | | | | | | | | +--------+---------+ + + + | 06/26/ | Office | Cardiology | Monserrat Weems | | | 2019 | Visit | | [address] | | | | | | [address] | | | | | | [place] [address] | | | | | | [phone] | | | | | | | [...]
--- OUTSIDE RECORDS SUMMARY | ~2020-05-30 | XMS | Encounter Summary ---
Demographics + + + | Address | [address] | | | [place] [address] | + + + | Home Phone [...] Team Providers + +------+ + | Care Access Consultant Name | Role | Phone | + +------+ + | Romy De La Paz MD | PCP | | + +------+ + Encounter Details +--------+ + + + + | Date | Type | Department | Care Team | Description | +--------+ + + + + | 04/15/ | Orders Only | [facility] | Denys Sibley, | Spinal stenosis of | | 2020 | | [facility] | DO [address] | lumbosacral region; | | | | [address] | [place], [place] | Lumbar region | | | | [address] | [address] | somatic dysfunction; | | | | [place], [place] | | Intractable back | | | | [address] | | pain; Degenerative | | | | [phone] | | lumbar spinal | | | [...] [address] | | | | | | [facility] [place] | | | | | | [address] | | | | | | | | +--------+---------+ + + + | 06/26/ | Office | Cardiology | Monserrat Weems | | | 2019 | Visit | | [address] | | | | | | [address] | | | | | | [place] [address] | | | | | | [phone] | | | | | | | [...]
--- OUTSIDE RECORDS SUMMARY | ~2020-05-30 | XMS | Encounter Summary ---
Demographics + + + | Address | [address] | | | [place] [address] | + + + | Home Phone [...] Team Providers + +------+ + | Care Plaque Maker Name | Role | Phone | [...] 2015 | Encounter | at [facility] [address] | [address] | | | | | [facility] for | [address] [place], | | | | | Health and Healing, | [place] [address] | | | | | [facility] | [phone] | | | | | Floor [place], [place] | | | | | | [address] | | | | | | [phone] | | | +--------+ + + + [...]
--- OUTSIDE RECORDS SUMMARY | ~2020-05-30 | XMS | Encounter Summary ---
Demographics + + + | Address | [address] | | | [place] [address] | + + + | Home Phone [...] Providers + +------+ + | Care Field Training Agent Name | Role | Phone | [...] Pain Medicine | Diagnoses | Toñito, | Sonja, | | | Services | | Intractable | Denys Wallis DO | DO Alfredo | | | Required | | back pain | [address] | [address] | | | | | Lumbar | [address] | [facility], | | | | | region | [place], | [place] [address] | | | | | somatic | [place] [address] | Phone: | | | | | dysfunction | Phone: | [phone] | | | | | S/P | [phone] | Fax: | | | | | insertion of | Fax: | [phone] | | | | | spinal cord | [phone] | | | | | | stimulator | | | + + + + + + + Encounter Details +--------+---------+ + + + | Date | Type | Department | Care Team | Description | +--------+---------+ + + + | 04/15/ | Office | [facility] | Alfredo Casillas DO | Intractable back | | 2019 | Visit | [facility] | [address] | pain (Primary Dx); | | | | [address] | [place] [address] | Lumbar region | | | | [address] [place], | [phone] | somatic dysfunction; | | | | [place] [address] | | Foraminal stenosis | | | | [phone] | | of lumbar region - | [...] Casillas DO - 04/15/2020 9:30 AM PDT [facility]: Interventional Pain Management 04/15/2020 Kori [...] Asthma Asthma Back pain Cancer ([facility]) 2004 breast Cataract Cerebrovascular accident (CVA) ([facility]) no per pt Chronic back pain Chronic back pain Chronic constipation Concussion 07/2015 Preceeded by seizure Constipation COPD (chronic obstructive pulmonary disease) ([facility]) Degenerative disc disease Depression Depression Diabetes [...] of lumbar spine 04/17/2014 Seizure ([facility]) one due to meds, two due [...] Surgeon: Alfredo Casillas DO; Location: [facility]; Service: Pa in Management; Laterality: N/A; L5 FRACTURE SURGERY ANKLE HERNIA REPAIR HYSTERECTOMY HYSTERECTOMY LAMINECTOMY N/A 08/03/2019 Procedure: LAMINOTOMY THORACIC / LUMBAR W/ PLACEMENT SPINAL CORD STIMULATOR; Surgeon: Suly Hutchins MD; [place] [facility] [place] OTHER SURGICAL HISTORY EPIDURAL STEROID [...] times a day 04/15/20 04/15/21 Yes Denys Sibely, DO Loratadine 10 MG CAPS Take 10 [...] level: Not on file Occupational History Occupation: [employer] ([employer] Social Needs Financial resource strain: Not on [...] file Gets together: Not on file Attends uatsdin service: Not on file Active member of [...] of relief from the stimulation. Toner from [employer] was in attendance and we were able [...] 04/15/2020 This document has been prepared with [employer] voice recognition system. The possibility of "s ound alike" rotary envelope machine operator errors, and additions, or deletions may [...] [address] | | | | | | [place], [place] | | | | | | [address] | | | | | | | | +--------+---------+ + + + | 06/26/ | Office | Cardiology | Faustina Monserrat | | 2019 | Visit | | [address] | | | | | | [address] | | | | | | [place] [address] | | | | | | [phone] | | | | | | | [...] L5. | | | Signed by: River Andersen, Laz Ahuja Date/Time: | | | 04/15/2020 10:28 AM [...]
--- OUTSIDE RECORDS SUMMARY | ~2020-05-30 | XMS | Encounter Summary ---
Demographics + + + | Address | [address] | | | [place] [address] | + + + | Home Phone [...] Providers + +------+ + | Care Brake Operator Helper Name | Role | Phone | + +------+ + | Concepción Gallardo NP | PCP | | + +------+ + Reason for Visit + +--------+ + | Reason | Onset | Comments | | | Date | | + +--------+ + | Records Request | 07/26/ | MRI OF LUMBAR SPINE | | | 2013 | | + +--------+ + Encounter Details +--------+ + + + + | Date | Type | Department | Care Team | Description | +--------+ + + + + | 07/26/ | Telephone | [facility] | Darrin Hoyos | Records Request (MRI | | 2013 | | NEUROSURGERY [address] | [address] | OF LUMBAR SPINE) | | | | [address] | [address] [place], [place] | | | | | [place], [place] | [id number] | | | | | [address] | | | | | | [phone] | | | +--------+ + + + [...] Notes Telephone Encounter - Cindy Shaikh - 08/16/2014 11:22 AM PDTImaging is available on [employer]. Please review. Telephone Encounter - Cindy Shaikh - 07/26/2014 12:[address] [facility] 07/17/14 MRI of the lumbar spine to [facility]. 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 Requested that both studies be pushed to i-site per PEE Zarate. documente d in this encounter Plan of [...] [place] | | | | | | [id number] | | | | | | | | +--------+---------+ + + + | 06/26/ | Office | Cardiology | Monserrat Weems | | | 2019 | Visit | | [address] | | | | | | [address] | | | | | | [place] [address] | | | | | | [phone] | | | | | | | | +--------+---------+ + + + documented as of this encounter Visit Diagnoses Not on filedocumented in this encounter"
--- OUTSIDE RECORDS SUMMARY | ~2020-05-30 | XMS | Encounter Summary ---
Demographics + + + | Address | [address] | | | [place] [address] | + + + | Home Phone [...] Providers + +------+ + | Care Food Photographer Name | Role | Phone | + +------+ + PCP | Unavailable | + +------+ + Encounter Details +--------+ + + + + | Date | Type | Department | Care Team | Description | +--------+ + + + + | 06/26/ | Respiratory | | Other, Faculty | | | 2006 | Therapy | | [phone] | | +--------+ + + + + [...] Hassan, | | | | | | FINISH CLEANER | | | | + + [...] RADHA ALONZO | [address] | [place], [place] | | | DIAGNOSTICS - | [place] | [address] | | | PULMONARY FUNCTION | | | | + + + + + documented in this encounter Visit Diagnoses Not on filedocumented in this encounter"
--- OUTSIDE RECORDS SUMMARY | ~2020-05-30 | XMS | Encounter Summary ---
Demographics + + + | Address | [address] | | | [place] [address] | + + + | Home Phone [...] Team Providers + +------+ + | Care Loss Control Technician Name | Role | Phone | + +------+ + | Miquel Calhoun MD | PCP | | + +------+ + Encounter Details +--------+ + + + + | Date | Type | Department | Care Team | Description | +--------+ + + + + | 11/14/ | Hospital | [facility] | Jazmín Riggins MD | Hypothyroid; History | | 2014 - | Encounter | [facility] | [address] | of oral aphthous | | | | CLINICAL DECISION | [address], | ulcers; Anemia, | | 11/19/ | | [address] | [place] [address] | unspecified; | | 2013 | | [place], [place] | [phone] | Aspiration pneumonia | | | | [phone] | | ([facility]); COPD | | | | [phone] | | (chronic obstructive | | | | | | pulmonary disease) | | | | | | ([facility]); Generalized | | | | [...] 1140 Date of Service: 11/19/131920 Status: Signed Quality Control Scientist: Fran Eddy MD (Physician) Related Notes: Original Note by Fran Eddy MD (Physician) filed at 11/20/13 1418 Patient ID: Ronald Torrestyfawthrop [id number] 68 y.o. 1945 Admit date: 11/14/2013 Discharge date and time: 11/19/2013 Admitting Physician: Jana Sharpe DO Discharge Physician: MD Maricruz Consults: Primary [...] - 99 mg/dL Final Testing performed at [address] [address] BUN Date Value Range Status 11/19/2013 12 8 - 25 mg/dL Final Testing performed at [address] [address] CREATININE Date Value Range Status 11/19/2013 0.80 0.50 - 1.00 mg/dL Final Testing performed at [address] [address] BUN/CREAT Date Value Range Status 11/19/2013 15 Final Testing performed at [address] [address] TOTAL PROTEIN Date Value Range Status 11/17/2013 5.2* 6.3 - 8.2 g/dL Final Testing performed at [address] [address] GLOBULIN Date Value Range Status 11/17/2013 2.1 1.3 - 4.9 g/dL Final Testing performed at [address] [address] TBIL Date Value Range Status 11/17/2013 0.6 0.1 - 1.5 mg/dL Final Testing performed at [facility], [address] [place] [address] ALT Date Value Range Status 11/17/2013 21 10 - 65 U/L Final Testing performed at [facility], [address] [place] [address] AST Date Value Range Status 11/17/2013 19 10 - 45 U/L Final Testing performed at [address] [address] SODIUM Date Value Range Status 11/19/2013 133* 135 - 143 mmol/L Final Testing performed at [address] [address] POTASSIUM Date Value Range Status 11/19/2013 3.9 3.5 - 4.9 mmol/L Final Testing performed at [address] [address] CHLORIDE Date Value Range Status 11/19/2013 101 99 - 109 mmol/L Final Testing performed at [address] [address] CO2 Date Value Range Status 11/19/2013 24 23 - 32 mmol/L Final Testing performed at [address] [address] ANION GAP AGAP Date Value Range Status 11/19/2013 12 5 - 20 mmol/L Final Testing performed at [address] [address] X-ray Lumbar Spine Limited 2-3 Views 11/18/2013 RONALD BUTLER XR LUMBAR SPINE LIMITED 2-3 [...] 7:52 PM X-ray Hips Bilateral 11/18/2013 RONALD BUTLER XR HIPS BILATERAL 11/18/2013 4:56 PM HISTORY: [...] above. X-ray Chest 1 View 11/16/2013 RONALD DOCHANELWTHROP XR CHEST 1 VIEW 11/16/2013 6:21 AM [...] extubation. X-ray Chest 1 View 11/15/2013 RONALD DOHERTYFAWTHROP XR CHEST 1 VIEW 11/15/2013 6:08 AM [...] to distal superior vena cava. 11/14/2013 RONALD WASHBURNHROP XR CHEST 1 VIEW 11/14/2013 8:56 PM [...] the emergency department, who was admitted to [facility] on November 14, 2013, when she was found to be unresponsive by EMS and thought to be secondary to Flexeril overdose and alcohol intoxication, and alcohol level was more than 300 , and patient was found to be hypotensive. Hence, she was intubated and brought to the [facility] from outside hospital and was started on dopamine and norepinephri ne and Tylenol level was checked, which was 44, for which she was put on acetylcysteine prot ocol and was transferred to medical floor on November 15, 2013, and Dr. Moore from psychia tric service was consulted after patient stabilized and she was taken to [facility] under Dr. Diana's care. 2. Chronic back pain, for which patient was discharged to [facility] on [place] in p.r.n. 3. Aphthous [...] No Intake/Output Summary (Last 24 hours) at 11/19/131920 Last data filed at 11/19/13 1659 Gross [...] rash noted. No erythema. No pallor. Disposition: Tawnya in patient psychiatric facility Patient Instructions: Medication [...] file for this visit. Miquel Calhoun MD [address] [place] [address] [place] [id number] In 1 week Signed: FRAN EDDY 11/19/2013 [...] 11/19/132053 Date of Service: 11/19/132029 Status: Signed Quality Control Scientist: Ruby Chávez RN (Registered Nurse) Pt currently on psychiatric hold; Transport here to take pt to [facility]. Pt complains of yessica n; Given Ultram (See MAR) VSS; Afebrile; No SOB. Nurse to nurse given to [facility]. Pt dc'd by stretcher. Ruby Chávez 11/19/2013 Fran Porter MD - 11/19/2013 3:24 PM PSTFormatting of this note might be different from the or iginal. Progress Notes by Fran Eddy MD at 11/19/13 1524 Author: Fran Eddy MD Service: Hospitalist Author Type: Physician Filed: 11/19/13 153 Date of Service: 11/19/131523 Status: Addendum Quality Control Scientist: Fran Eddy MD (Physician) Related Notes: Original Note by Fran Eddy MD (Physician) filed at 11/19/13 1535 [facility] Service: Hospitalist Progress Note Ronald Torrestyfawthrop 68 y.o. [id number] 306/306-2 female [facility] Day: LOS: 5 days Patient Summary: .A 68-year-old female with past medical history of depression with m ultiple suicide attempts in the past, history of COPD, which she attributes to paint inhalat ion, history of anxiety, restless leg syndrome, GERD, diabetes mellitus type 2, diet control led, hypothyroidism, who was admitted to [facility] on the November 14, when the patient was found to be unresponsive by EMS and thought to be secondary to Fle xeril overdose and alcohol intoxication as her alcohol level was more than 300. The patient was found to be hypertensive, hence she was intubated and brought to the [facility] where she was put on dopamine, [...] depressed and having suicidal thoughts on/off . Chadd quiroz wants to go to rehab so that [...] (37.2 C)] 98.9 F (37.2 C) (11/19 144) BP: (90-107)/(50-61) 96/53 mmHg (11/19 144) Heart Rate: [81-98] 84 (11/19 1442) Resp: [16-18] 18 (11/19 1442) SpO2: [95 %-99 %] 97 % (11/19 144) Weight: [66.3 kg (146 lb 2.6 oz)] [...] by PCR (TAT 3 hr in house) [[id number]] Collected:11/19/13 0703 Specimen Information:Stool / Stool Updated:11/19/13 0807 Toxigenic C Difficile NEGATIVE 027 NAP1 BI 027 NAP1 BI PRESUMPTIVE NEGATIVE Magnesium [[id number]] Collected:11/19/13424 MAGNESIUM 2.2 mg/dL Updated:11/19/13806 Phosphorus [[id number]] Collected:11/19/13424 PHOSPHORUS 4.0 mg/dL Updated:11/19/13 08 Basic metabolic panel [[id number]] (Abnormal) Collected:11/19/13424 Specimen Information:Blood Updated:11/19/13 0544 SODIUM 133 (L) mmol/L POTASSIUM 3.9 mmol/L CHLORIDE 101 mmol/L CO2 24 mmol/L ANION GAP AGAP 12 mmol/L GLUCOSE 108 (H) mg/dL BUN 12 mg/dL CREATININE 0.80 mg/dL BUN/CREAT 15 CALCIUM 9.2 mg/dL EGFR >60 mL/min/1.73m2 CBC w/auto diff (reflex to manual) [[id number]] (Abnormal) Collected:11/19/13424 Specimen Information:Blood Updated:11/19/13 0540 WBC 5.6 K/uL [...] K/uL MORPHOLOGY Fecal occult blood (in house) [[id number]] Collected:11/19/13 0146 Specimen Information:Stool / Stool Updated:11/19/13 0217 Fecal Occult Blood NEGATIVE Urine culture [[id number]] Collected:11/17/13 1013 Specimen Information:Urine / Urine, Catheter Updated:11/18/13 1710 Specimen Description CATHETERIZED URINE Specimen Description Result: Testing performed at [facility] [facility] [address] CULTURE NO GROWTH CULTURE Result: Testing performed at [facility], [address] [place] [address] REPORT STATUS 11/18/2013 FINAL Blood culture, 1 of 2 [[id number]] Collected:11/17/13 1042 Specimen Information:Blood / Blood Updated:11/18/13 1451 Specimen Description BLOOD Specimen Description Result: Testing performed at [facility];[address] [place] [address] SPECIAL REQUESTS Result: REPEAT TEST USING ALTERNATE ASSAYED CONTROL MATERIAL SPECIAL REQUESTS Result: Testing performed at [facility];[address] [place] [address];[place] [address] CULTURE NO GROWTH AT THIS TIME CULTURE Result: Testing performed at [facility], [address] [place] [address] REPORT STATUS PENDING Blood culture, 2 of 2 [[id number]] Collected:11/17/13 1050 Specimen Information:Blood / Blood Updated:11/18/13 1451 Specimen Description BLOOD Specimen Description Result: Testing performed at [facility];[address] [place] [address] SPECIAL REQUESTS PICC LINE SPECIAL REQUESTS Result: Testing performed at [facility];[address] [place] [address] CULTURE NO GROWTH AT THIS TIME CULTURE Result: Testing performed at [facility], [address] [place] [address] REPORT STATUS PENDING Sputum culture [[id number]] Collected:11/17/13 1153 Specimen Information:Sputum / Sputum Updated:11/18/13 1428 Specimen Description SPUTUM Specimen Description Result: Testing performed at [facility];[address] [place] [address] GRAM STAIN GREATER THAN 10 WBCS/LPF GRAM STAIN LESS THAN 10 SEC/LPF GRAM STAIN NO ORGANISMS SEEN GRAM STAIN Result: Testing performed at [address] [address] CULTURE 1+ NORMAL UPPER RESPIRATORY CURTIS CULTURE Result: Testing performed at [address] [address] REPORT STATUS PENDING Magnesium [[id number]] Collected:11/18/13 0600 Specimen Information:Blood Updated:11/18/13 1104 MAGNESIUM 2.1 mg/dL Phosphorus [[id number]] Collected:11/18/13 0600 Specimen Information:Blood Updated:11/18/13 1104 PHOSPHORUS 3.8 mg/dL Basic metabolic panel [[id number]] (Abnormal) Collected:11/18/13 0600 Specimen Information:Blood Updated:11/18/13 0716 SODIUM 135 mmol/L POTASSIUM 4.2 mmol/L CHLORIDE 104 mmol/L CO2 24 mmol/L ANION GAP AGAP 11 mmol/L GLUCOSE 110 (H) mg/dL BUN 11 mg/dL CREATININE 0.73 mg/dL BUN/CREAT 15 CALCIUM 9.0 mg/dL EGFR >60 mL/min/1.73m2 TSH [[id number]] Collected:11/18/13 06 Specimen Information:Blood Updated:11/18/13 0713 TSH 4.28 uIU/mL CBC w/auto diff (reflex to manual) [[id number]] (Abnormal) Collected:11/18/13 0600 Specimen Information:Blood Updated:11/18/13 0647 [...] K/uL BASOPHILS ABS 0.0 K/uL Urine culture [[id number]] Collected:11/16/13 0951 Specimen Information:Urine / Urine, Clean Catch Updated:11/17/13 1618 Specimen Description CLEAN CATCH URINE Specimen Description Result: Testing performed at [facility];[address] [place] [address] CULTURE NO GROWTH CULTURE Result: Testing performed at [facility], [address] [place] [address] REPORT STATUS 11/17/2013 FINAL Magnesium [[id number]] (Abnormal) Collected:11/16/13 0407 Specimen Information:Blood Updated:11/17/13 1141 MAGNESIUM 1.6 (L) mg/dL Phosphorus [[id number]] (Abnormal) Collected:11/16/13 0407 Specimen Information:Blood Updated:11/17/13 1141 PHOSPHORUS 1.7 (L) mg/dL Iron panel [[id number]] (Abnormal) Collected:11/17/13556 Specimen Information:Blood Updated:11/17/13 0718 IRON 31 ug/dL TIBC 155 (L) ug/dL IRON % SAT 20 % Vitamin B12 [[id number]] Collected:11/17/13556 Specimen Information:Blood Updated:11/17/13 0711 VITAMIN B12 417 pg/mL Folate [[id number]] Collected:11/17/13556 Specimen Information:Blood Updated:11/17/13710 FOLATE 17.7 ng/mL Ferritin [[id number]] Collected:11/17/13556 Specimen Information:Blood Updated:11/17/1311 FERRITIN 140 ng/mL Comprehensive metabolic panel [[id number]] (Abnormal) Collected:11/17/13556 Specimen Information:Blood Updated:11/17/13 0710 SODIUM 134 (L) [...] mL/min/1.73m2 CBC w/auto diff (reflex to manual) [[id number]] (Abnormal) Collected:11/17/13556 Specimen Information:Blood Updated:11/17/13 0641 WBC 7.8 K/uL [...] 11/15/2013 Ct Head Without Contrast 11/14/2013 RONALD SYKESRAYSHAWNFAWTHROP [address] HEAD WO [...] above. X-ray Chest 1 View 11/16/2013 RONALD SYKESRAYSAHWNFAWTHRLEIGHANN XR CHEST 1 VIEW 11/16/2013 6:21 AM [...] the patient on Levaquin and Augmentin day 4/, Robitussin 10 mL every 4 amol rs [...] Case Management by ANGELO Lujan at 11/19/13 2896 Author: ANGELO Lujan Service: (none) Author Type: Social Professionals Filed: 11/19/13 4584 Date of Service: 11/19/13 8504 Status: Signed Quality Control Scientist: ANGELO Lujan (Social Professionals) JOVITA contacted Crisis Response Unit to inform [facility] that pt is now medically clear for MH eval uation. A DMHP will see pt in the hospital today for eval. JOVITA spoke with IPR MD - he would like to reevaluate pt tomorrow to determine appropriateness for IPR. ANGELO Lujan Library Circulation Department Chief onver hiren Transaction, Provider Unknown - 11/19/2013 12:40 PM PST Progress Notes by Emi Donaldson PT at 11/19/13 8580 Author: Emi Donaldson PT Service: (none) Author Type: Physical Therapist Filed: 11/19/13 1313 Date of Service: 11/19/13 1240 Status: Signed Quality Control Scientist: Emi Donaldson PT (Physical Therapist) 11/19/13 1240 [...] and I have a bladder appointment at [facility] I need to take care of otherwise [...] Date of Service: 11/19/13 1020 Status: Signed Quality Control Scientist: Emi Donaldson PT (Physical Therapist) 11/19/13 1020 PT Last Visit PT Received On 11/19/13 Requires PT Follow Up Unavailable (getting bed bath, f/u later today for PT as schedule allows) onver hiren Transaction, Provider Unknown - 11/19/2013 4:29 AM PST Nurse Progress Note by Kala Peña RN at 11/19/13428 Author: Kala Peña RN Service: (none) Author Type: Registered Nurse Filed: 11/19/13 0433 Date of Service: 11/19/13428 Status: Signed Quality Control Scientist: Kala Peña RN (Registered Nurse) Pt slept [...] MD Service: Hospitalist Author Type: Physician Filed: 11/18/13 1827 Date of Service: 11/18/131807 Status: Signed Quality Control Scientist: Fran Eddy MD (Physician) [facility] Service: Hospitalist Progress Note Ronald Stefaniwtjaneen 68 y.o. [id number] 306/306-2 female [facility] Day: LOS: 4 days Patient Summary: .A 68-year-old female with past medical history of depression with m ultiple suicide attempts in the past, history of COPD, which she attributes to paint inhalat ion, history of anxiety, restless leg syndrome, GERD, diabetes mellitus type 2, diet control led, hypothyroidism, who was admitted to [facility] on the November 14 014, when the patient was found to be unresponsive by EMS and thought to be secondary to Fle xeril overdose and alcohol intoxication as her alcohol level was more than 300. The patient was found to be hypertensive, hence she was intubated and brought to the [facility] where she was put on dopamine, [...] mood is better after she talked with Soaking Tank Worker ,denied any suicidal ideation /thoughts at this moment . Patient c/o generalized weakness and evaluated by PT who recommended SNF and patient wants to know if she can goto [facility]. She denied any chest pain, cough,sob ,no [...] Procedure Component Value Units Date/Time Urine culture [[id number]] Collected:11/17/13 1013 Specimen Information:Urine / Urine, Catheter Updated:11/18/13 1710 Specimen Description CATHETERIZED URINE Specimen Description Result: Testing performed at [facility];[address] [place] [address] CULTURE NO GROWTH CULTURE Result: Testing performed at [facility], [address] [place] [address] REPORT STATUS 11/18/2013 FINAL Blood culture, 1 of 2 [[id number]] Collected:11/17/13 1042 Specimen Information:Blood / Blood Updated:11/18/13 1451 Specimen Description BLOOD Specimen Description Result: Testing performed at [facility];[address] [place] [address] SPECIAL REQUESTS Result: REPEAT TEST USING ALTERNATE ASSAYED CONTROL MATERIAL SPECIAL REQUESTS Result: Testing performed at [facility];[address] [place] [address] CULTURE NO GROWTH AT THIS TIME CULTURE Result: Testing performed at [address] [address] REPORT STATUS PENDING Blood culture, 2 of 2 [[id number]] Collected:11/17/13 1050 Specimen Information:Blood / Blood Updated:11/18/13 1451 Specimen Description BLOOD Specimen Description Result: Testing performed at [facility];[address] [place] [address] SPECIAL REQUESTS PICC LINE SPECIAL REQUESTS Result: Testing performed at [facility];[address] [place] [address] CULTURE NO GROWTH AT THIS TIME CULTURE Result: Testing performed at [facility], [address] [place] [address] REPORT STATUS PENDING Sputum culture [[id number]] Collected:11/17/13 1153 Specimen Information:Sputum / Sputum Updated:11/18/13 1428 Specimen Description SPUTUM Specimen Description Result: Testing performed at [facility];[address] [place] [address];[place] [address] GRAM STAIN GREATER THAN 10 WBCS/LPF GRAM STAIN LESS THAN 10 SEC/LPF GRAM STAIN NO ORGANISMS SEEN GRAM STAIN Result: Testing performed at [facility], [address] [place] [address] CULTURE 1+ NORMAL UPPER RESPIRATORY CURTIS CULTURE Result: Testing performed at [address] [address] REPORT STATUS PENDING Magnesium [[id number]] Collected:11/18/13 06 Specimen Information:Blood Updated:11/18/13 1104 MAGNESIUM 2.1 mg/dL Phosphorus [[id number]] Collected:11/18/13 06 Specimen Information:Blood Updated:11/18/13 1104 PHOSPHORUS 3.8 mg/dL Basic metabolic panel [[id number]] (Abnormal) Collected:11/18/13 0600 Specimen Information:Blood Updated:11/18/13 0716 SODIUM 135 mmol/L POTASSIUM 4.2 mmol/L CHLORIDE 104 mmol/L CO2 24 mmol/L ANION GAP AGAP 11 mmol/L GLUCOSE 110 (H) mg/dL BUN 11 mg/dL CREATININE 0.73 mg/dL BUN/CREAT 15 CALCIUM 9.0 mg/dL EGFR >60 mL/min/1.73m2 TSH [[id number]] Collected:11/18/13 06 Specimen Information:Blood Updated:11/18/13 0713 TSH 4.28 uIU/mL CBC w/auto diff (reflex to manual) [[id number]] (Abnormal) Collected:11/18/13 06 Specimen Information:Blood Updated:11/18/13 0647 [...] K/uL BASOPHILS ABS 0.0 K/uL Urine culture [[id number]] Collected:11/16/13 0951 Specimen Information:Urine / Urine, Clean Catch Updated:11/17/13 1618 Specimen Description CLEAN CATCH URINE Specimen Description Result: Testing performed at [facility];[address] [facility];[place] [address] CULTURE NO GROWTH CULTURE Result: Testing performed at [facility], [address] [facility], [place] [address] REPORT STATUS 11/17/2013 FINAL Magnesium [[id number]] (Abnormal) Collected:11/16/13406 Specimen Information:Blood Updated:11/17/13 1141 MAGNESIUM 1.6 (L) mg/dL Phosphorus [[id number]] (Abnormal) Collected:11/16/13406 Specimen Information:Blood Updated:11/17/13 1141 PHOSPHORUS 1.7 (L) mg/dL Iron panel [[id number]] (Abnormal) Collected:11/17/13556 Specimen Information:Blood Updated:11/17/1318 IRON 31 ug/dL TIBC 155 (L) ug/dL IRON % SAT 20 % Vitamin B12 [[id number]] Collected:11/17/1357 Specimen Information:Blood Updated:11/17/1311 VITAMIN B12 417 pg/mL Folate [[id number]] Collected:11/17/13556 Specimen Information:Blood Updated:11/17/1311 FOLATE 17.7 ng/mL Ferritin [[id number]] Collected:11/17/13556 Specimen Information:Blood Updated:11/17/1311 FERRITIN 140 ng/mL Comprehensive metabolic panel [[id number]] (Abnormal) Collected:11/17/13556 Specimen Information:Blood Updated:11/17/13 0710 SODIUM 134 (L) [...] mL/min/1.73m2 CBC w/auto diff (reflex to manual) [[id number]] (Abnormal) Collected:11/17/13 0557 Specimen Information:Blood Updated:11/17/13 0641 WBC 7.8 K/uL [...] K/uL BASOPHILS ABS 0.0 K/uL MORPHOLOGY Potassium [[id number]] Collected:11/16/13 1112 Specimen Information:Blood Updated:11/16/13 1133 POTASSIUM 3.6 mmol/L Sputum culture [[id number]] Collected:11/14/132054 Specimen Information:Sputum / Tracheal Aspirate Updated:11/16/13 1018 Specimen Description TRACHEAL ASPIRATE Specimen Description Result: Testing performed at [address] [address] GRAM STAIN GREATER THAN 10 WBCS/LPF GRAM STAIN LESS THAN 10 SEC/LPF GRAM STAIN 2+ GRAM POSITIVE COCCI GRAM STAIN 1+ GRAM POSITIVE RODS GRAM STAIN Result: Testing performed at [facility], [address] [place] [address] CULTURE 2+ NORMAL UPPER RESPIRATORY CURTIS CULTURE Result: Testing performed at [facility], [address] [place] [address] REPORT STATUS 11/16/2013 FINAL Acetaminophen level [[id number]] (Abnormal) Collected:11/16/13 0755 Specimen Information:Blood Updated:11/16/13 0828 ACETAMINOPHEN 3.7 (L) ug/mL CBC w/auto diff (reflex to manual) [[id number]] (Abnormal) Collected:11/16/13406 Specimen Information:Blood Updated:11/16/13 0503 WBC [...] BASOPHILS ABS 0.0 K/uL Basic metabolic panel [[id number]] (Abnormal) Collected:11/16/13406 Specimen Information:Blood Updated:11/16/13439 SODIUM 143 mmol/L POTASSIUM 3.1 (L) mmol/L CHLORIDE 109 mmol/L CO2 27 mmol/L ANION GAP AGAP 10 mmol/L GLUCOSE 78 mg/dL BUN 7 (L) mg/dL CREATININE 0.77 mg/dL BUN/CREAT 9 CALCIUM 7.8 (L) mg/dL EGFR >60 mL/min/1.73m2 Acetaminophen level [[id number]] (Abnormal) Collected:11/16/13406 Specimen Information:Blood Updated:11/16/13 0440 ACETAMINOPHEN 4.5 (L) ug/mL Acetaminophen level [[id number]] (Abnormal) Collected:11/16/13 0036 Specimen Information:Blood Updated:11/16/13 0058 ACETAMINOPHEN 5.2 (L) ug/mL CBC: Lab Results [...] above. X-ray Chest 1 View 11/16/2013 RONALD DOHERTYFAWTHROP XR CHEST 1 VIEW 11/16/2013 [...] (none) Author Type: Registered Nurse Filed: 11/18/13 9823 Date of Service: 11/18/131805 Status: Signed Quality Control Scientist: Donita Tucker RN (Registered Nurse) metal pourer at bedside, pt seeming uplifted by conversation with registered clinical dietitian. PCC in and asked t hat this RN not remove cords, call-light cord and other items nearby pt as optical glass inspector had con tacted her regarding this RN's discussion that per policy and patients statements indicating that she intended to cause her self harm this RN felt it would be best to move items that s he could use to harm herself away from her after she finished speaking with the registered clinical dietitian. Th is RN has increased rounding, line of site at RN station and optical glass inspector continues to be in pl suk[place]. Pt overall mood continue to be melancholy and tearful, but has not threatened to do chapito f harm since her discussion with the registered clinical dietitian. Pt encouraged to express her emotions to staf f. Pt complains of diffuse pain, and desire to go to [facility]. Pt medicated for pain per DEC. Wi ll continue to monitor closely.DONITA TUCKER RN onver hiren Transaction, Provider Unknown - 11/18/2013 2:59 PM PST Progress Notes by Franky Mcclain at 11/18/13 6457 Author: Franky Mcclain Service: (none) Author Type: Service Control Operator Filed: 11/18/13 2329 Date of Service: 11/18/13 3641 Status: Signed Quality Control Scientist: Franky Mcclain (Service Control Operator) Received pt's request via RN for [...] but now belongs to the "[employer]" and the [facility]. She states that she's [...] (none) Author Type: Registered Nurse Filed: 11/18/13 1216 Date of Service: 11/18/13 1208 Status: Signed Quality Control Scientist: Donita Tucker RN (Registered Nurse) Service Control Operator called to be with patient,, optical glass inspector at bedside. Pt indicating desire to harm [...] Service: (none) Author Type: Registered Nurse Filed: 11/18/1315 Date of Service: 11/18/13612 Status: Signed Quality Control Scientist: Kala Peña RN (Registered Nurse) Pt slept on and off through night. Medicated once for pain. Increased in alertness as night progressed. VSS. Sitter at bedside. Pt states that she continues to feel hopeless. Will con tinue to monitor. onver hiren Transaction, Provider Unknown - 11/17/2013 6:24 PM PST Progress Notes by Dick De Santiago RN at 11/17/134 Author: Dick De Santiago RN Service: (none) Author Type: Registered Nurse Filed: 11/17/13 1835 Date of Service: 11/17/131823 Status: Signed Quality Control Scientist: Dick De Santiago RN (Registered Nurse) Pt [...] Date of Service: 11/17/13 1341 Status: Signed Quality Control Scientist: Sharif Romero (Service Control Operator) I visited with Pt to assess her emotional/spiritual needs, wishes and choices. Pt states sh richie has multiple suicide attempts due to emotional [...] Filed: 11/17/13 1320 Date of Service: 11/17/13 1133 Status: Signed Quality Control Scientist: Emi Donaldson PT (Physical Therapist) 11/17/13 1133 [...] fatigue;Patient limited by pain Nurse Made Aware RN Dick notified of pt mobility status and recommendations [...] (none) Author Type: Physical Therapist Filed: 11/17/13 1402 Date of Service: 11/17/13 1133 Status: Signed Quality Control Scientist: Emi Donaldson PT (Physical Therapist) 11/17/13 1133 [...] Recommendations SNF Equipment Recommended (pending improvement, lift public relations c/s) Prior Function Level of [place] Modified independent with functional mobility;Modified independent wi [...] Date of Service: 11/17/13 1002 Status: Signed Quality Control Scientist: Fran Eddy MD (Physician) Related Notes: Original Note by Fran Eddy MD (Physician) filed at 11/17/13 1016 [facility] Service: Hospitalist Progress Note Ronald Carrie 68 y.o. [phone] female MIQUEL Suarez [facility] Day: LOS: 3 days Patient Summary: .A 68-year-old female with past medical history of depression with m ultiple suicide attempts in the past, history of COPD, which she attributes to paint inhalat ion, history of anxiety, restless leg syndrome, GERD, diabetes mellitus type 2, diet control led, hypothyroidism, who was admitted to [facility] on the November 14, when the patient was found to be unresponsive by EMS and thought to be secondary to Fle xeril overdose and alcohol intoxication as her alcohol level was more than 300. The patient was found to be hypertensive, hence she was intubated and brought to the [facility] where she was put on dopamine, [...] commands . I received her records from [facility]. The patient's 2 sons live in [place], and she does not know the phone [...] Procedure Component Value Units Date/Time Iron panel [[id number]] (Abnormal) Collected:11/17/13556 Specimen Information:Blood Updated:11/17/13717 IRON 31 ug/dL TIBC 155 (L) ug/dL IRON % SAT 20 % Vitamin B12 [[id number]] Collected:11/17/13556 Specimen Information:Blood Updated:11/17/13710 VITAMIN B12 417 pg/mL Folate [[id number]] Collected:11/17/13556 Specimen Information:Blood Updated:11/17/13710 FOLATE 17.7 ng/mL Ferritin [[id number]] Collected:11/17/13556 Specimen Information:Blood Updated:11/17/13710 FERRITIN 140 ng/mL Comprehensive metabolic panel [[id number]] (Abnormal) Collected:11/17/13556 Specimen Information:Blood Updated:11/17/13709 SODIUM 134 [...] mL/min/1.73m2 CBC w/auto diff (reflex to manual) [[id number]] (Abnormal) Collected:11/17/13 0557 Specimen Information:Blood Updated:11/17/13 0641 WBC 7.8 K/uL [...] BASOPHILS ABS 0.0 K/uL MORPHOLOGY Urine culture [[id number]] Collected:11/16/13 0951 Specimen Information:Urine / Urine, Clean Catch Updated:11/16/13 1144 Potassium [[id number]] Collected:11/16/13 1112 Specimen Information:Blood Updated:11/16/13 1133 POTASSIUM 3.6 mmol/L Sputum culture [[id number]] Collected:11/14/13 2055 Specimen Information:Sputum / Tracheal Aspirate Updated:11/16/13 1018 Specimen Description TRACHEAL ASPIRATE Specimen Description Result: Testing performed at [address] [address] GRAM STAIN GREATER THAN 10 WBCS/LPF GRAM STAIN LESS THAN 10 SEC/LPF GRAM STAIN 2+ GRAM POSITIVE COCCI GRAM STAIN 1+ GRAM POSITIVE RODS GRAM STAIN Result: Testing performed at [facility], [address] [place] [address] CULTURE 2+ NORMAL UPPER RESPIRATORY CURTIS CULTURE Result: Testing performed at [facility], [address] [place] [address] REPORT STATUS 11/16/2013 FINAL Acetaminophen level [[id number]] (Abnormal) Collected:11/16/13 0755 Specimen Information:Blood Updated:11/16/13 0828 ACETAMINOPHEN 3.7 (L) ug/mL Magnesium [[id number]] Collected:11/16/13406 Specimen Information:Blood Updated:11/16/13 0800 Phosphorus [[id number]] Collected:11/16/13406 Specimen Information:Blood Updated:11/16/13 0800 CBC w/auto diff (reflex to manual) [[id number]] (Abnormal) Collected:11/16/13406 Specimen Information:Blood Updated:11/16/13 0503 WBC [...] BASOPHILS ABS 0.0 K/uL Basic metabolic panel [[id number]] (Abnormal) Collected:11/16/13406 Specimen Information:Blood Updated:11/16/13439 SODIUM 143 mmol/L POTASSIUM 3.1 (L) mmol/L CHLORIDE 109 mmol/L CO2 27 mmol/L ANION GAP AGAP 10 mmol/L GLUCOSE 78 mg/dL BUN 7 (L) mg/dL CREATININE 0.77 mg/dL BUN/CREAT 9 CALCIUM 7.8 (L) mg/dL EGFR >60 mL/min/1.73m2 Acetaminophen level [[id number]] (Abnormal) Collected:11/16/13406 Specimen Information:Blood Updated:11/16/13 0440 ACETAMINOPHEN 4.5 (L) ug/mL Acetaminophen level [[id number]] (Abnormal) Collected:11/16/13 0036 Specimen Information:Blood Updated:11/16/13 0058 ACETAMINOPHEN 5.2 (L) ug/mL Troponin I [[id number]] (Abnormal) Collected:11/15/13 1602 Specimen Information:Blood Updated:11/15/13 1651 TROPONIN I 0.208 (H) ng/mL CK MB [[id number]] Collected:11/15/13 1602 MMB 3.4 ng/mL Updated:11/15/13 1651 CK-MB Index 2.4 CPK [[id number]] Collected:11/15/13 1602 Specimen Information:Blood Updated:11/15/13 1651 CPK 140 U/L Acetaminophen level [[id number]] Collected:11/15/13 160 Specimen Information:Blood Updated:11/15/13 1651 ACETAMINOPHEN 10.0 ug/mL POCT glucose [[id number]] (Abnormal) Collected:11/14/13 1920 GLUCOSE,POC SCREEN 154 (H) mg/dL Updated:11/15/13 1317 Acetaminophen level [[id number]] (Abnormal) Collected:11/15/13 113 Specimen Information:Blood Updated:11/15/13 1207 ACETAMINOPHEN 5.5 (L) ug/mL Basic metabolic panel [[id number]] (Abnormal) Collected:11/15/13 113 Specimen Information:Blood Updated:11/15/13 1207 SODIUM 144 (H) mmol/L POTASSIUM 3.9 mmol/L CHLORIDE 114 (H) mmol/L CO2 20 (L) mmol/L ANION GAP AGAP 14 mmol/L GLUCOSE 153 (H) mg/dL BUN 8 mg/dL CREATININE 0.92 mg/dL BUN/CREAT 9 CALCIUM 7.4 (L) mg/dL EGFR >60 mL/min/1.73m2 CPK [[id number]] Collected:11/15/1351 Specimen Information:Blood Updated:11/15/13 0925 CPK 75 U/L Troponin I [[id number]] (Abnormal) Collected:11/15/13850 Specimen Information:Blood Updated:11/15/13 0925 TROPONIN I 0.325 (H) ng/mL CK MB [[id number]] Collected:11/15/13850 MMB 3.4 ng/mL Updated:11/15/13924 CK-MB Index 4.5 Acetaminophen level [[id number]] (Abnormal) Collected:11/15/1351 Specimen Information:Blood Updated:11/15/13 0925 ACETAMINOPHEN 6.3 (L) ug/mL POCT glucose [[id number]] Collected:11/15/13 0033 GLUCOSE,POC SCREEN 86 mg/dL Updated:11/15/13 0759 Osmolality [[id number]] (Abnormal) Collected:11/15/13407 Specimen Information:Blood Updated:11/15/13 0701 OSMOLALITY,SERUM 316 (H) mOsm/kg Lactic acid, plasma [[id number]] (Abnormal) Collected:11/15/13 0532 Specimen Information:Blood Updated:11/15/13 0617 LACTIC ACID 2.5 (H) mmol/L CBC w/auto diff (reflex to manual) [[id number]] (Abnormal) Collected:11/15/13407 Specimen Information:Blood Updated:11/15/13529 WBC 5.5 [...] BASOPHILS ABS 0.0 K/uL MORPHOLOGY Troponin I [[id number]] (Abnormal) Collected:11/15/13407 Specimen Information:Blood Updated:11/15/13522 TROPONIN I 0.647 (HH) ng/mL CK MB [[id number]] Collected:11/15/13407 MMB 3.3 ng/mL Updated:11/15/13522 CK-MB Index 5.9 CPK [[id number]] Collected:11/15/13407 Specimen Information:Blood Updated:11/15/13521 CPK 56 U/L Comprehensive metabolic panel [[id number]] (Abnormal) Collected:11/15/13407 Specimen Information:Blood Updated:11/15/13521 SODIUM 148 [...] 61 U/L EGFR >60 mL/min/1.73m2 Acetaminophen level [[id number]] (Abnormal) Collected:11/15/13 0408 Specimen Information:Blood Updated:11/15/13 0522 ACETAMINOPHEN 9.9 (L) ug/mL POC arterial CG4+ [[id number]] (Abnormal) Collected:11/14/132346 pH, Art 7.141 (LL) Updated:11/14/132350 POC PCO2 40 mmHg POC p02 283 (H) mmHg POC LACTATE 3.7 (H) mmol/L POC HCO3 14 (L) mmol/L POC TCO2 15 (L) mEq/L POC BASE DEFICIT 15 (H) mmol/L POC S02 100 (H) % POC FIO2 70 % POC COMMENTS Tidal Volume = 500 Lactic acid, plasma [[id number]] (Abnormal) Collected:11/14/132116 Specimen Information:Blood Updated:11/14/132155 LACTIC ACID 3.4 (H) mmol/L Basic metabolic panel [[id number]] (Abnormal) Collected:11/14/132112 Specimen Information:Blood Updated:11/14/132149 SODIUM 143 mmol/L POTASSIUM 3.0 (L) mmol/L CHLORIDE 114 (H) mmol/L CO2 16 (L) mmol/L ANION GAP AGAP 16 mmol/L GLUCOSE 187 (H) mg/dL BUN 10 mg/dL CREATININE 0.79 mg/dL BUN/CREAT 13 CALCIUM 6.5 (L) mg/dL EGFR >60 mL/min/1.73m2 Phosphorus [[id number]] Collected:11/14/132112 Specimen Information:Blood Updated:11/14/132149 PHOSPHORUS 2.4 mg/dL Magnesium [[id number]] Collected:11/14/132112 Specimen Information:Blood Updated:11/14/132149 MAGNESIUM 1.7 mg/dL Hepatic function panel [[id number]] (Abnormal) Collected:11/14/132112 TOTAL PROTEIN 5.6 (L) g/dL Updated:11/14/132149 Albumin 3.1 (L) g/dL TBIL 0.2 mg/dL BILI, DIRECT <0.1 mg/dL ALK PHOS 76 U/L AST 75 (H) U/L ALT 67 (H) U/L Acetaminophen level [[id number]] (Abnormal) Collected:11/14/132112 Specimen Information:Blood Updated:11/14/132149 ACETAMINOPHEN 44.4 (H) ug/mL Ionized calcium,to [facility] [[id number]] (Abnormal) Collected:11/14/132114 Specimen Information:Blood Updated:11/14/132145 CA++ 0.99 (L) mmol/L pH 7.179 (L) aPTT [[id number]] Collected:11/14/132112 Specimen Information:Blood Updated:11/14/132144 APTT 26 seconds Protime-INR [[id number]] Collected:11/14/132112 Specimen Information:Blood Updated:11/14/132144 INR 1.0 MRSA by PCR [[id number]] Collected:11/14/131929 Specimen Information:Nasopharyngeal / Nasopharyngeal Culture Updated:11/14/132130 SOURCE NARES(NOSE) RESULT NEGATIVE CBC w/auto diff (reflex to manual) [[id number]] (Abnormal) Collected:11/14/132112 Specimen Information:Blood Updated:11/14/132130 WBC 12.2 [...] ABS 0.0 K/uL Rapid drug screen, urine [[id number]] (Abnormal) Collected:11/14/131929 Specimen Information:Urine / Urine, Catheter Updated:11/14/132036 THC NEGATIVE PCP NEGATIVE COCAINE NEGATIVE METHAMPHETAMINES NEGATIVE OPIATES PRESUMPTIVE POSITIVE (A) AMPHETAMINE NEGATIVE BENZODIAZEPINE NEGATIVE TRICYCLIC ANTIDEPRESS PRESUMPTIVE POSITIVE (A) METHADONE NEGATIVE BARBITUATES NEGATIVE Urine microscopic only [[id number]] (Abnormal) Collected:11/14/131929 WBC 1-5 /hpf Updated:11/14/132035 RBC 0-2 /hpf EPITHELIAL NONE SEEN /lpf BACTERIA TRACE (A) Urinalysis (reflex to micro) [[id number]] (Abnormal) Collected:11/14/131929 Specimen Information:Urine / Urine, Catheter Updated:11/14/132035 COLOR UA OTHER CLARITY CLEAR Specific [place], UA 1.004 LEUKOCYTE ESTERASE TRACE (A) NITRITE [...] Endotracheal extubation. X-ray Chest 1 View 11/15/2013 RNOALD WASHBURNHROP XR CHEST 1 VIEW 11/15/2013 6:08 [...] to patient,doing exam and revising records from [facility]. FRAN EDDY MD 11/17/2013 onversion Transactio n, Provider Unknown - 11/17/2013 4:27 AM PST Nurse Progress Note by Jazzy Patel RN at 11/17/13426 Author: Jazzy Patel RN Service: (none) Author Type: Registered Nurse Filed: 11/17/13 0429 Date of Service: 11/17/13426 Status: Signed Quality Control Scientist: Jazzy Patel RN (Registered Nurse) Pt currently sleeping. 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 Unable to score CIWA a s patient [...] Notes by Fran Eddy MD at 11/16/13 6812 Author: Fran Eddy MD Service: Hospitalist Author Type: Physician Filed: 11/17/13 1746 Date of Service: 11/16/13 5369 Status: Signed Quality Control Scientist: Fran Eddy MD (Physician) Related Notes: Original Note by Fran Eddy MD (Physician) filed at 11/16/13 1009 [facility] Service: Hospitalist Progress Note Ronald Torresmiraclefawthrleighann 68 y.o. [phone] [id number] female [facility] Day: LOS: 2 days Patient Summary: A 68-year-old female with past medical history of depression and his tory of suicidal attempts, COPD per patient but there is no documentation of it, who took an overdose of Flexeril and EMS found her in the bathtub with clothes on, and the patient was taken to [facility] ER where she was found to be unresponsive and hypertensive, an d was intubated and sent to [facility] for further workup and treatment. The [...] as tricyclic positive. She was put on CIWA protocol for alcohol withdrawal. Today when I [...] atient told that she lives alone in [place]. [facility]. She [...] (11/16 1413) BP: (102-136)/(51-68) 136/63 mmHg (11/16 1225) Heart Rate: [100-117] 100 (11/16 1225) Resp: [18-24] 21 (11/16 1225) SpO2: [92 %-98 %] 96 % (11/16 122) Weight: [69.3 kg (152 lb 12.5 oz)] 69.3 kg (152 lb 12.5 oz) (11/16 0415) I&O Detailed Table: Intake/Output Summary (Last 24 [...] Procedure Component Value Units Date/Time Urine culture [[id number]] Collected:11/16/13 0951 Specimen Information:Urine / Urine, Clean Catch Updated:11/16/13 1144 Potassium [[id number]] Collected:11/16/13 1112 Specimen Information:Blood Updated:11/16/13 1133 POTASSIUM 3.6 mmol/L Sputum culture [[id number]] Collected:11/14/132054 Specimen Information:Sputum / Tracheal Aspirate Updated:11/16/13 1018 Specimen Description TRACHEAL ASPIRATE Specimen Description Result: Testing performed at [facility];[address] [place] [address];[place] [address] GRAM STAIN GREATER THAN 10 WBCS/LPF GRAM STAIN LESS THAN 10 SEC/LPF GRAM STAIN 2+ GRAM POSITIVE COCCI GRAM STAIN 1+ GRAM POSITIVE RODS GRAM STAIN Result: Testing performed at [facility], [address] [place] [address] CULTURE 2+ NORMAL UPPER RESPIRATORY CURTIS CULTURE Result: Testing performed at [facility], [address] [place] [id number] REPORT STATUS 11/16/2013 FINAL Acetaminophen level [[id number]] (Abnormal) Collected:11/16/13 0755 Specimen Information:Blood Updated:11/16/13 0828 ACETAMINOPHEN 3.7 (L) ug/mL Magnesium [[id number]] Collected:11/16/13 0407 Specimen Information:Blood Updated:11/16/13 0800 Phosphorus [[id number]] Collected:11/16/13406 Specimen Information:Blood Updated:11/16/13 0800 CBC w/auto diff (reflex to manual) [[id number]] (Abnormal) Collected:11/16/13 0407 Specimen Information:Blood Updated:11/16/13 0503 [...] BASOPHILS ABS 0.0 K/uL Basic metabolic panel [[id number]] (Abnormal) Collected:11/16/13 0407 Specimen Information:Blood Updated:11/16/13 0440 SODIUM 143 mmol/L POTASSIUM 3.1 (L) mmol/L CHLORIDE 109 mmol/L CO2 27 mmol/L ANION GAP AGAP 10 mmol/L GLUCOSE 78 mg/dL BUN 7 (L) mg/dL CREATININE 0.77 mg/dL BUN/CREAT 9 CALCIUM 7.8 (L) mg/dL EGFR >60 mL/min/1.73m2 Acetaminophen level [[id number]] (Abnormal) Collected:11/16/13 0407 Specimen Information:Blood Updated:11/16/13 0440 ACETAMINOPHEN 4.5 (L) ug/mL Acetaminophen level [[id number]] (Abnormal) Collected:11/16/13 0036 Specimen Information:Blood Updated:11/16/13 0058 ACETAMINOPHEN 5.2 (L) ug/mL Troponin I [[id number]] (Abnormal) Collected:11/15/13 1602 Specimen Information:Blood Updated:11/15/13 1651 TROPONIN I 0.208 (H) ng/mL CK MB [[id number]] Collected:11/15/13 1602 MMB 3.4 ng/mL Updated:11/15/13 1651 CK-MB Index 2.4 CPK [[id number]] Collected:11/15/13 160 Specimen Information:Blood Updated:11/15/13 1651 CPK 140 U/L Acetaminophen level [[id number]] Collected:11/15/13 1602 Specimen Information:Blood Updated:11/15/13 1651 ACETAMINOPHEN 10.0 ug/mL POCT glucose [[id number]] (Abnormal) Collected:11/14/13 1920 GLUCOSE,POC SCREEN 154 (H) mg/dL Updated:11/15/13 1317 Acetaminophen level [[id number]] (Abnormal) Collected:11/15/13 1132 Specimen Information:Blood Updated:11/15/13 1207 ACETAMINOPHEN 5.5 (L) ug/mL Basic metabolic panel [[id number]] (Abnormal) Collected:11/15/13 1132 Specimen Information:Blood Updated:11/15/13 1207 SODIUM 144 (H) mmol/L POTASSIUM 3.9 mmol/L CHLORIDE 114 (H) mmol/L CO2 20 (L) mmol/L ANION GAP AGAP 14 mmol/L GLUCOSE 153 (H) mg/dL BUN 8 mg/dL CREATININE 0.92 mg/dL BUN/CREAT 9 CALCIUM 7.4 (L) mg/dL EGFR >60 mL/min/1.73m2 CPK [[id number]] Collected:11/15/13850 Specimen Information:Blood Updated:11/15/13924 CPK 75 U/L Troponin I [[id number]] (Abnormal) Collected:11/15/13850 Specimen Information:Blood Updated:11/15/13924 TROPONIN I 0.325 (H) ng/mL CK MB [[id number]] Collected:11/15/13850 MMB 3.4 ng/mL Updated:11/15/13924 CK-MB Index 4.5 Acetaminophen level [[id number]] (Abnormal) Collected:11/15/13850 Specimen Information:Blood Updated:11/15/13924 ACETAMINOPHEN 6.3 (L) ug/mL POCT glucose [[id number]] Collected:11/15/13 0033 GLUCOSE,POC SCREEN 86 mg/dL Updated:11/15/13 0759 Osmolality [[id number]] (Abnormal) Collected:11/15/138 Specimen Information:Blood Updated:11/15/13 0701 OSMOLALITY,SERUM 316 (H) mOsm/kg Lactic acid, plasma [[id number]] (Abnormal) Collected:11/15/13 0532 Specimen Information:Blood Updated:11/15/13 0617 LACTIC ACID 2.5 (H) mmol/L CBC w/auto diff (reflex to manual) [[id number]] (Abnormal) Collected:11/15/13407 Specimen Information:Blood Updated:11/15/13 0530 WBC 5.5 K/uL [...] BASOPHILS ABS 0.0 K/uL MORPHOLOGY Troponin I [[id number]] (Abnormal) Collected:11/15/13407 Specimen Information:Blood Updated:11/15/13522 TROPONIN I 0.647 (HH) ng/mL CK MB [[id number]] Collected:11/15/13407 MMB 3.3 ng/mL Updated:11/15/13522 CK-MB Index 5.9 CPK [[id number]] Collected:11/15/13407 Specimen Information:Blood Updated:11/15/13521 CPK 56 U/L Comprehensive metabolic panel [[id number]] (Abnormal) Collected:11/15/13407 Specimen Information:Blood Updated:11/15/13521 SODIUM 148 [...] 61 U/L EGFR >60 mL/min/1.73m2 Acetaminophen level [[id number]] (Abnormal) Collected:11/15/13407 Specimen Information:Blood Updated:11/15/13521 ACETAMINOPHEN 9.9 (L) ug/mL POC arterial CG4+ [[id number]] (Abnormal) Collected:11/14/132346 pH, Art 7.141 (LL) Updated:11/14/13 2351 POC PCO2 40 mmHg POC p02 283 (H) mmHg POC LACTATE 3.7 (H) mmol/L POC HCO3 14 (L) mmol/L POC TCO2 15 (L) mEq/L POC BASE DEFICIT 15 (H) mmol/L POC S02 100 (H) % POC FIO2 70 % POC COMMENTS Tidal Volume = 500 Lactic acid, plasma [[id number]] (Abnormal) Collected:11/14/132116 Specimen Information:Blood Updated:11/14/132155 LACTIC ACID 3.4 (H) mmol/L Basic metabolic panel [[id number]] (Abnormal) Collected:11/14/132112 Specimen Information:Blood Updated:11/14/132149 SODIUM 143 mmol/L POTASSIUM 3.0 (L) mmol/L CHLORIDE 114 (H) mmol/L CO2 16 (L) mmol/L ANION GAP AGAP 16 mmol/L GLUCOSE 187 (H) mg/dL BUN 10 mg/dL CREATININE 0.79 mg/dL BUN/CREAT 13 CALCIUM 6.5 (L) mg/dL EGFR >60 mL/min/1.73m2 Phosphorus [[id number]] Collected:11/14/132112 Specimen Information:Blood Updated:11/14/132149 PHOSPHORUS 2.4 mg/dL Magnesium [[id number]] Collected:11/14/132112 Specimen Information:Blood Updated:11/14/132149 MAGNESIUM 1.7 mg/dL Hepatic function panel [[id number]] (Abnormal) Collected:11/14/132112 TOTAL PROTEIN 5.6 (L) g/dL Updated:11/14/132149 Albumin 3.1 (L) g/dL TBIL 0.2 mg/dL BILI, DIRECT <0.1 mg/dL ALK PHOS 76 U/L AST 75 (H) U/L ALT 67 (H) U/L Acetaminophen level [[id number]] (Abnormal) Collected:11/14/132112 Specimen Information:Blood Updated:11/14/132149 ACETAMINOPHEN 44.4 (H) ug/mL Ionized calcium,to [facility] [[id number]] (Abnormal) Collected:11/14/132114 Specimen Information:Blood Updated:11/14/132145 CA++ 0.99 (L) mmol/L pH 7.179 (L) aPTT [[id number]] Collected:11/14/132112 Specimen Information:Blood Updated:11/14/132144 APTT 26 seconds Protime-INR [[id number]] Collected:11/14/132112 Specimen Information:Blood Updated:11/14/132144 INR 1.0 MRSA by PCR [[id number]] Collected:11/14/131929 Specimen Information:Nasopharyngeal / Nasopharyngeal Culture Updated:11/14/132130 SOURCE NARES(NOSE) RESULT NEGATIVE CBC w/auto diff (reflex to manual) [[id number]] (Abnormal) Collected:11/14/132112 Specimen Information:Blood Updated:11/14/132130 WBC 12.2 [...] ABS 0.0 K/uL Rapid drug screen, urine [[id number]] (Abnormal) Collected:11/14/131929 Specimen Information:Urine / Urine, Catheter Updated:11/14/132036 THC NEGATIVE PCP NEGATIVE COCAINE NEGATIVE METHAMPHETAMINES NEGATIVE OPIATES PRESUMPTIVE POSITIVE (A) AMPHETAMINE NEGATIVE BENZODIAZEPINE NEGATIVE TRICYCLIC ANTIDEPRESS PRESUMPTIVE POSITIVE (A) METHADONE NEGATIVE BARBITUATES NEGATIVE Urine microscopic only [[id number]] (Abnormal) Collected:11/14/131929 WBC 1-5 /hpf Updated:11/14/132035 RBC 0-2 /hpf EPITHELIAL NONE SEEN /lpf BACTERIA TRACE (A) Urinalysis (reflex to micro) [[id number]] (Abnormal) Collected:11/14/131929 Specimen Information:Urine / Urine, Catheter Updated:11/14/132035 COLOR UA OTHER CLARITY CLEAR Specific [place], UA 1.004 LEUKOCYTE ESTERASE TRACE (A) NITRITE [...] 11/15/2013 Ct Head Without Contrast 11/14/2013 RONALD ROSANAFAWTHROP [address] HEAD WO [...] above. X-ray Chest 1 View 11/16/2013 RONALD RAMSEYWTHROP XR CHEST 1 VIEW 11/16/2013 6:21 AM [...] extubation. X-ray Chest 1 View 11/15/2013 RONALD RAMSEYWTHROP XR CHEST 1 VIEW 11/15/2013 6:08 AM [...] Notes by Kassidy Perez RN at 11/16/13 9886 Author: Kassidy Perez RN Service: (none) Author Type: Registered Nurse Filed: 11/16/13 1423 Date of Service: 11/16/13 142 Status: Signed Quality Control Scientist: Kassidy Perez RN (Registered Nurse) Pt beginning to become more agitated and verbal. Dr. Eddy notified. Will move into room w/ o roommate for now. Will cont. to monitor. onver hiren Transaction, Provider Unknown - 11/16/2013 11:40 AM PST Progress Notes by Jana Taylor at 11/16/13 114 Author: Jana Taylor Service: (none) Author Type: Registered Nurse Filed: 11/16/131139 Date of Service: 11/16/131139 Status: Signed Quality Control Scientist: Jana Taylor Pt given to Kassidy MORAN on 3OP. Pt transferred via wheel chair. onver hiren Transaction, Provider Unknown - 11/16/2013 1:17 AM PST Nurse Progress Note by Sheryl Tomas RN at 11/16/13116 Author: Sheryl Tomas RN Service: (none) Author Type: Registered Nurse Filed: 11/16/13116 Date of Service: 11/16/13116 Status: Signed Quality Control Scientist: Sheryl Tomas RN (Registered Nurse) Stopped Acetylcysteine drip per order. Sheryl Tomas RN Jana Sandoval - 11/15/2013 4:28 PM PST Progress Notes by Jana Sharpe DO at 11/15/131627 Author: Jana Sharpe DO Service: (none) Author Type: Materials Scientist Filed: 11/15/13 6906 Date of Service: 11/15/131627 Status: Signed Quality Control Scientist: Jana Sharpe DO (Materials Scientist) Pt was extubated this am and has [...] Management by Kourtney De Santiago RN at 11/15/13 1408 Author: Kourtney De Santiago RN Service: (none) Author Type: Registered Nurse Filed: 11/15/13 1409 Date of Service: 11/15/131407 Status: Signed Quality Control Scientist: Kourtney De Santiago RN (Registered Nurse) Discussed psych consult with Dr. Sharpe. Received verbal order for psych consult. Notifi wilbert Flores RN, she will arrange for psych consult. When pt is stable for discharge, will need to call [facility] : [phone] to evalulate before disch arging pt. KOURTNEY DE SANTIAGO 11/15/2013 2:09 PM onver hiren Transaction, Provider Unknown - 11/15/2013 9:32 AM PST Progress Notes by Nick Jeffries RN at 11/15/13 0932 Author: Nick Jeffries RN Service: Wound/Ostomy Care Author Type: Registered Nurse Filed: 11/15/13 0934 Date of Service: 11/15/13931 Status: Signed Quality Control Scientist: Nick Jeffries RN (Registered Nurse) Pt seen [...] RPH Service: (none) Author Type: Pharmacist Filed: 11/15/13556 Date of Service: 11/15/13556 Status: Signed Quality Control Scientist: Mat Perez RPH (Pharmacist) Clinical Pharmacy Note: Renal Monitoring Ronald Butler 68 y.o. female Ht Readings from Last 1 Encounters: No data found for Ht Wt Readings from Last 1 Encounters: 11/15/13 69.1 kg (152 lb 5.4 oz) CREATININE Date Value Range Status 11/15/2013 0.69 0.50 - 1.00 mg/dL Final Testing performed at [facility] [place] [place] [address];[place] [address] Creatinine clearance cannot be calculated - Unknown ideal weight. Pharmacy dosing for renal function per Dr. Riggins. Currently, there are no medications needing to [...] 11/15/131951 Date of Service: 11/14/131856 Status: Signed Quality Control Scientist: Roseline Sheppard RN (Registered Nurse) Pt arrived [facility] from [facility]. No report called from [facility] a nd minimal report received Via [facility]. Pt transferred to bed, ventilator applied to exist ing ETT via RT. Obvious smell of ETOH emitting from PT. No cough, gag or corneals noted. oil paint shader RN Gayle in room to assume care of pt. ROSELINE SHEPPARD 11/14/131856 docume nted in this encounter H&P Notes Jazmín Riggins MD - 11/14/2013 5:36 AM PST H&P by Jazmín Riggins MD at 11/14/13 1522 Author: Jazmín Riggins MD Service: Materials Scientist Author Type: Physician Filed: 11/15/13 0620 Date of Service: 11/14/1336 Status: Signed Quality Control Scientist: Jazmín Riggins MD (Physician) [facility] Service: Materials Scientist Admission History & Physical Date of Admission: 11/14/2013 Requesting Physician: , None Indication for ICU Admission: shock and fexeril overdose History Obtained From: non-family caregiver - EMS, chart review CHIEF COMPLAINT: Unresponsive HISTORY OF PRESENT ILLNESS The patient is a 68 y.o. female with significant past medical history of Depression and hi story of suicidal attempts apparently called EMS because she over dosed herself on flexeril in a suicidal attempt. EMS find her in her bath tube with cloth on. She was transported to [facility] ER. After arrival to the ER she became unresponsive and hypotensive. She was in tubated and sent to us after several hours. Review of records reveals several hours of hypot ension. On arrival she was unresponsive with GCS of 3. 20 mics of dopamine on board with wit h BP in 80s. norepinephrine was added. No family members available or seen. REVIEW OF SYSTEMS Review of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 [place] [address] | | | | + + + + + + | Calcium | 9.2Comment: Testing | 8.5 - 10.2 | EXTERNAL | | | | performed at [facility], [address] | mg/dL | LAB | | | | [address], | | | | | | [place] [address] | | | | + + + [...] | | | | | | [place] [address] | | | | + + + [...] | EXTERNAL LAB | | performed at [facility];[place] [address] | | + + + + +---------+ [...] + + + | RONALD TORRESTYFAWTHROP XR LUMBAR SPINE LIMITED 2-3 VIEW 11/18/2013 [...] At | + + + | RONALD SYKESCHANELWTJANENE XR HIPS BILATERAL 11/18/2013 4:56 PM | [...] - 06/15/2019 1:42 PM PDT RONALD DOHERTYFAWTHROPXR HIPS | | BILATERAL11/18/2013 4:56 PM HISTORY:68 [...] | | | | | [place] [address] | | | | + + + + + + | Non- | 3.77Comment: Testing | 3.70 - 5.10 | EXTERNAL | | | Red Blood | performed at [facility], [address] | M/uL | LAB | | | Cells | [address], | | | | | Counted | [place] [address] | | | | + + + + + + | Hemoglobin | 10.8 (L)Comment: Testing | 11.3 - 15.5 | EXTERNAL | | | | performed at [facility], [address] | g/dL | LAB | | | | [address], | | | | | | [place] [address] | | | | + + + + + + | Hematocrit, | 31.9 (L)Comment: Testing | 34.0 - 46.0 % | EXTERNAL | | | POC | performed at [facility], [address] | | LAB | | | | [address] [place], | | | | | | [place] [address] | | | | + + + + + + | MCV | 84.8Comment: Testing | 80.0 - 100.0 fl | EXTERNAL | | | | performed at [facility], [address] | | LAB | | | | [address], | | | | | | [place] [address] | | | | + + + + + + | MCH | 28.8Comment: Testing | 27.0 - 34.0 pg | EXTERNAL | | | | performed at [facility], [address] | | LAB | | | [address], | | | | | | [place] [address] | | | | + + + + + + | MCHC | 33.9Comment: Testing | 32.0 - 35.5 | EXTERNAL | | | | performed at [facility], [address] | g/dL | LAB | | | | [address], | | | | | | [place] [address] | | | | + + + + + + | RDW-CV | 37.6Comment: Testing | 37 - 53 fl | EXTERNAL | | | | performed at [facility], [address] | | LAB | | | | [address], | | | | | | [place] [address] | | | | + + + + + + | Platelet | 183Comment: Testing | 150 - 400 K/uL | EXTERNAL | | | Count | performed at [facility], [address] | | LAB | | | Plasma | [address], | | | | | | [place] [address] | | | | + + + + + + | MPV | 7.9Comment: Testing | fl | EXTERNAL | | | | performed at [facility], [address] | | LAB | | | | [address], | | | | | | [place] [address] | | | | + + + + + + | Differentia | AUTOMATEDComment: | | EXTERNAL | | | l Type | Testing performed at | | LAB | | | | [facility], [address] | | | | | | [place] | | | | | | [address] | | | | + + + [...] | | | | | [place] [address] | | | | + + + [...] | | | | | | [place] [address] | | | | + + + [...] | | | | | [place] [address] | | | | + + + [...] | | | | | [place] [address] | | | | + + + + + + | K | 4.2Comment: Testing | 3.5 - 4.9 | EXTERNAL | | | | performed at [facility], [address] | mmol/L | LAB | | | | [address], | | | | | | [place] [address] | | | | + + + + + + | Cl | 104Comment: Testing | 99 - 109 mmol/L | EXTERNAL | | | | performed at [facility], [address] | | LAB | | | | [address], | | | | | | [place] [address] | | | | + + + + + + | CO2 | 24Comment: Testing | 23 - 32 mmol/L | EXTERNAL | | | | performed at [facility], [address] | | LAB | | | | [address], | | | | | | [place] [address] | | | | + + + + + + | Anion Gap | 11Comment: Testing | 5 - 20 mmol/L | EXTERNAL | | | | performed at [facility], [address] | | LAB | | | | [address], | | | | | | [place] [address] | | | | + + + + + + | Glucose, | 110 (H)Comment: Testing | 65 - 99 mg/dL | EXTERNAL | | | Fasting | performed at [facility], [address] | | LAB | | | | [address], | | | | | | [place] [address] | | | | + + + + + + | BUN | 11Comment: Testing | 8 - 25 mg/dL | EXTERNAL | | | | performed at [facility], [address] | | LAB | | | | [address], | | | | | | [place] [address] | | | | + + + + + + | Creatinine | 0.73Comment: Testing | 0.50 - 1.00 | EXTERNAL | | | | performed at [facility], [address] | mg/dL | LAB | | | | [address], | | | | | | [place] [address] | | | | + + + + + + | BUN/Creatin | 15Comment: Testing | | EXTERNAL | | | ine Ratio | performed at [facility], [address] | | LAB | | | | [address] [place], | | | | | | [place] [address] | | | | + + + + + + | Calcium | 9.0Comment: Testing | 8.5 - 10.2 | EXTERNAL | | | | performed at [facility], [address] | mg/dL | LAB | | | | [address] [place], | | | | | | [place] [address] | | | | + + + [...] | | | | | | [address], | | | | | | [place] [address] | | | | + + + [...] EXTERNAL LAB | | Testing performed at [facility];[address] | | | [facility];[place] [address] GRAM STAIN | | | GREATER THAN 10 WBCS/LPF | | | LESS THAN 10 SEC/LPF | | | NO ORGANISMS SEEN | | | Testing performed at [facility], [address] [place] [address], | | | [place] [address] CULTURE | | | 3+ ZITA GLABRATAAbnormal | | | 2+ ZITA DUBLINIENSISAbnormal | | | 2+ KLEBSIELLA OXYTOCAAbnormal | | | 1+ NORMAL UPPER RESPIRATORY | | | CURTIS Testing | | | performed at [facility], [address] [place] [address], [place] [address] | | | REPORT STATUS 11/23/2013 FINAL [...] EXTERNAL LAB | | Testing performed at [facility];[address] | | | [facility];[place] [address] SPECIAL REQUESTS | | | PICC LINE | | | Testing performed at [facility];[address] [facility];[place] [address] CULTURE | | | NO GROWTH 6 DAYS | | | Testing performed at [facility], [facility] | | | [place] [address] REPORT STATUS | | | 11/23/2013 FINAL [...] EXTERNAL LAB | | Testing performed at [facility];[address] | | | [facility];[place] [address] SPECIAL REQUESTS | | | REPEAT TEST USING ALTERNATE ASSAYED CONTROL MATERIAL | | | Testing performed at [facility];[address] | | | [facility];[place] [address] CULTURE | | | NO GROWTH 6 DAYS | | | Testing performed at [facility], [address] [place] [address], | | | [place] [address] REPORT STATUS 11/23/2013 | | | FINAL [...] | Testing performed at | | | [facility];[address] [facility];[place] [address] CULTURE | | | NO GROWTH | | | Testing performed at [facility], [address] [facility], | | | [place] [address] REPORT STATUS | | | 11/18/2013 FINAL [...] | | | | | [place] [address] | | | | + + + + + + | TIBC | 155 (L)Comment: Testing | 260 - 490 ug/dL | EXTERNAL | | | | performed at [facility], [address] | | LAB | | | | [address], | | | | | | [place] [address] | | | | + + + + + + | Iron | 20Comment: Testing | 15 - 50 % | EXTERNAL | | | Saturation | performed at [facility], [address] | | LAB | | | | [address], | | | | | | [place] [address] | | | | + + + [...] | | | | | | [place] [address] | | | | + + + + + + | Non- | 3.51 (L)Comment: Testing | 3.70 - 5.10 | EXTERNAL | | | Red Blood | performed at [facility], [address] | M/uL | LAB | | | Cells | [address], | | | | | Counted | [place] [address] | | | | + + + + + + | Hemoglobin | 9.6 (L)Comment: Testing | 11.3 - 15.5 | EXTERNAL | | | | performed at [facility], [address] | g/dL | LAB | | | [address], | | | | | | [place] [address] | | | | + + + + + + | Hematocrit, | 29.5 (L)Comment: Testing | 34.0 - 46.0 % | EXTERNAL | | | POC | performed at [facility], [address] | | LAB | | | | [address], | | | | | | [place] [address] | | | | + + + + + + | MCV | 84.3Comment: Testing | 80.0 - 100.0 fl | EXTERNAL | | | | performed at [facility], [address] | | LAB | | | | [address], | | | | | | [place] [address] | | | | + + + + + + | MCH | 27.5Comment: Testing | 27.0 - 34.0 pg | EXTERNAL | | | | performed at [facility], [address] | | LAB | | | | [address], | | | | | | [place] [address] | | | | + + + + + + | MCHC | 32.6Comment: Testing | 32.0 - 35.5 | EXTERNAL | | | | performed at [facility], [address] | g/dL | LAB | | | | [address], | | | | | | [place] [address] | | | | + + + + + + | RDW-CV | 36.3 (L)Comment: Testing | 37 - 53 fl | EXTERNAL | | | | performed at [facility], [address] | | LAB | | | | [address], | | | | | | [place] [address] | | | | + + + + + + | Platelet | 151Comment: Testing | 150 - 400 K/uL | EXTERNAL | | | Count | performed at [facility], [address] | | LAB | | | Plasma | [address], | | | | | | [place] [address] | | | | + + + + + + | MPV | 7.9Comment: Testing | fl | EXTERNAL | | | | performed at [facility], [address] | | LAB | | | | [address], | | | | | | [place] [address] | | | | + + + + + + | Differentia | AUTOMATEDComment: | | EXTERNAL | | | l Type | Testing performed at | | LAB | | | | [facility], [address] [facility] | | | | | | [place], [place] | | | | | | [address] | | | | + + [...] | | | | | [place] [address] | | | | + + + [...] | | | | | | [place] [address] | | | | + + + [...] [place], | | | | | | [place] [address] | | | | + + + [...] | | | | | [place] [address] | | | | + + + + + + | K | 3.8Comment: Testing | 3.5 - 4.9 | EXTERNAL | | | | performed at [facility], [address] | mmol/L | LAB | | | | [address], | | | | | | [place] [address] | | | | + + + + + + | Cl | 103Comment: Testing | 99 - 109 mmol/L | EXTERNAL | | | | performed at [facility], [address] | | LAB | | | | [address], | | | | | | [place] [address] | | | | + + + + + + | CO2 | 28Comment: Testing | 23 - 32 mmol/L | EXTERNAL | | | | performed at [facility], [address] | | LAB | | | | [address], | | | | | | [place] [address] | | | | + + + + + + | Anion Gap | 7Comment: Testing | 5 - 20 mmol/L | EXTERNAL | | | | performed at [facility], [address] | | LAB | | | | [address], | | | | | | [place] [address] | | | | + + + + + + | Glucose, | 131 (H)Comment: Testing | 65 - 99 mg/dL | EXTERNAL | | | Fasting | performed at [facility], [address] | | LAB | | | | [address], | | | | | | [place] [address] | | | | + + + + + + | BUN | 7 (L)Comment: Testing | 8 - 25 mg/dL | EXTERNAL | | | | performed at [facility], [address] | | LAB | | | | [address], | | | | | | [place] [address] | | | | + + + + + + | Creatinine | 0.61Comment: Testing | 0.50 - 1.00 | EXTERNAL | | | | performed at [facility], [address] | mg/dL | LAB | | | | [address], | | | | | | [place] [address] | | | | + + + + + + | BUN/Creatin | 11Comment: Testing | | EXTERNAL | | | ine Ratio | performed at [facility], [address] | | LAB | | | | [address] [place], | | | | | | [place] [address] | | | | + + + + + + | Calcium | 8.5Comment: Testing | 8.5 - 10.2 | EXTERNAL | | | | performed at [facility], [address] | mg/dL | LAB | | | | [address], | | | | | | [place] [address] | | | | + + + + + + | Protein, | 5.2 (L)Comment: Testing | 6.3 - 8.2 g/dL | EXTERNAL | | | Total | performed at [facility], [address] | | LAB | | | [address], | | | | | | [place] [address] | | | | + + + + + + | Albumin | 3.1 (L)Comment: Testing | 3.3 - 4.8 g/dL | EXTERNAL | | | | performed at [facility], [address] | | LAB | | | | [address], | | | | | | [place] [address] | | | | + + + + + + | Globulin | 2.1Comment: Testing | 1.3 - 4.9 g/dL | EXTERNAL | | | | performed at [facility], [address] | | LAB | | | | [address], | | | | | | [place] [address] | | | | + + + + + + | A/G Ratio | 1.5Comment: Testing | 1.0 - 2.4 | EXTERNAL | | | | performed at [facility], [address] | | LAB | | | | [address], | | | | | | [place] [address] | | | | + + + + + + | Bilirubin | 0.6Comment: Testing | 0.1 - 1.5 mg/dL | EXTERNAL | | | Total | performed at [facility], [address] | | LAB | | | | [address], | | | | | | [place], [place] [address] | | | | + + + + + + | ALP, | 48Comment: Testing | 35 - 115 U/L | EXTERNAL | | | External | performed at [facility], [address] | | LAB | | | | [address], | | | | | | [place] [address] | | | | + + + [...] | | | | | [place] [address] | | | | + + + [...] [place], | | | | | | [place] [address] | | | | + + + [...] EXTERNAL | | | | performed at [facility];[address] | mmol/L | LAB | | | | [address];[place] | | | | | | [address] | | | | + + + [...] | Testing performed at | | | [facility];[address] [facility];[place] [address] CULTURE | | | NO GROWTH | | | Testing performed at [facility], [address] [facility], | | | [place] [address] REPORT STATUS | | | 11/17/2013 FINAL [...] | | EN LEVEL | performed at [facility];[address] | ug/mL | LAB | | | | [address];[place] | | | | | | [address] | | | | + + + [...] At | + + + | RONALD ROSANAFAWTHROP XR CHEST 1 VIEW 11/16/2013 6:21 AM [...] | | | | | [place] [address] | | | | + + + + + + | Non- | 3.54 (L)Comment: Testing | 3.70 - 5.10 | EXTERNAL | | | Red Blood | performed at [facility], [address] | M/uL | LAB | | | Cells | [address] [place], | | | | | Counted | [place] [address] | | | | + + + [...] | | | | | [place] [address] | | | | + + + + + + | MCV | 83.4Comment: Testing | 80.0 - 100.0 fl | EXTERNAL | | | | performed at [facility], [address] | | LAB | | | | [address] [place], | | | | | | [place] [address] | | | | + + + + + + | MCH | 28.7Comment: Testing | 27.0 - 34.0 pg | EXTERNAL | | | | performed at [facility], [address] | | LAB | | | | [address], | | | | | | [place] [address] | | | | + + + + + + | MCHC | 34.3Comment: Testing | 32.0 - 35.5 | EXTERNAL | | | | performed at [facility], [address] | g/dL | LAB | | | | [address], | | | | | | [place] [address] | | | | + + + + + + | RDW-CV | 37.6Comment: Testing | 37 - 53 fl | EXTERNAL | | | | performed at [facility], [address] | | LAB | | | [address], | | | | | | [place] [address] | | | | + + + + + + | Platelet | 176Comment: Testing | 150 - 400 K/uL | EXTERNAL | | | Count | performed at [facility], [address] | | LAB | | | Plasma | [address] [place], | | | | | | [place] [address] | | | | + + + + + + | MPV | 7.8Comment: Testing | fl | EXTERNAL | | | | performed at [facility], [address] | | LAB | | | | [address] [place], | | | | | | [place] [address] | | | | + + + + + + | Differentia | AUTOMATEDComment: | | EXTERNAL | | | l Type | Testing performed at | | LAB | | | | [facility], [address] | | | | | | [place] | | | | | | [address] | | | | + + + [...] EXTERNAL | | | | performed at [facility];[address] | | LAB | | | | [address] [facility];[place], [place] | | | | | | [address] | | | | + + + [...] EXTERNAL | | | | performed at [facility];[address] | | LAB | | | | [address];[place], [place] | | | | | | [address] | | | | + + + [...] | | EN LEVEL | performed at [facility];[address] | ug/mL | LAB | | | | [address] [place];[place] | | | | | | [address] | | | | + + + [...] EXTERNAL | | | | performed at [facility];[address] | mmol/L | LAB | | | | [address];[place] | | | | | | [address] | | | | + + + + + + | K | 3.1 (L)Comment: Testing | 3.5 - 4.9 | EXTERNAL | | | | performed at [facility];[address] | mmol/L | LAB | | | | [address];[place] | | | | | | [address] | | | | + + + + + + | Cl | 109Comment: Testing | 99 - 109 mmol/L | EXTERNAL | | | | performed at [facility];[address] | | LAB | | | | [address];[place] | | | | | | [address] | | | | + + + + + + | CO2 | 27Comment: Testing | 23 - 32 mmol/L | EXTERNAL | | | | performed at [facility];[address] | | LAB | | | | [address];[place] | | | | | | [address] | | | | + + + + + + | Anion Gap | 10Comment: Testing | 5 - 20 mmol/L | EXTERNAL | | | | performed at [facility];[address] | | LAB | | | | [address];[place] | | | | | | [address] | | | | + + + + + + | Glucose, | 78Comment: Testing | 65 - 99 mg/dL | EXTERNAL | | | Fasting | performed at [facility];[address] | | LAB | | | | [address];[place] | | | | | | [address] | | | | + + + + + + | BUN | 7 (L)Comment: Testing | 8 - 25 mg/dL | EXTERNAL | | | | performed at [facility];[address] | | LAB | | | | [address];[place] | | | | | | [address] | | | | + + + + + + | Creatinine | 0.77Comment: Testing | 0.50 - 1.00 | EXTERNAL | | | | performed at [facility];[address] | mg/dL | LAB | | | | [address];[place] | | | | | | [address] | | | | + + + + + + | BUN/Creatin | 9Comment: Testing | | EXTERNAL | | | ine Ratio | performed at [facility];[address] | | LAB | | | | [address];[place] | | | | | | [address] | | | | + + + + + + | Calcium | 7.8 (L)Comment: Testing | 8.5 - 10.2 | EXTERNAL | | | | performed at [facility];[address] | mg/dL | LAB | | | | [address];[place] | | | | | | [address] | | | | + + + [...] | | | | | | at [facility];[address] [place] [address] | | | | | | [facility];[place] [address] | | | | + + + [...] | | EN LEVEL | performed at [facility];[address] | ug/mL | LAB | | | | [address];[place], [place] | | | | | | [address] | | | | + + + [...] EXTERNAL | | | | performed at [facility];[address] | | LAB | | | | [address];[place] | | | | | | [address] | | | | + + + [...] | | | | | | ACUTE [place] Testing | | | | | | performed at [facility];[address] | | | | | | [facility];[place], [place] | | | | | | [address] | | | | + + + [...] EXTERNAL | | | | performed at [facility];[address] | | LAB | | | | [address];[place] | | | | | | [address] | | | | + + + [...] | | EN LEVEL | performed at [facility];[address] | ug/mL | LAB | | | | [address];[place], [place] | | | | | | [address] | | | | + + + [...] TR | | | Vmax: 2.44 m/s Information Technology Teacher: Authenticated by: Finesse Nunez | | | Report Date/Time: 11-15-2013 18:08:31 | | + + + + + | Procedure Note | + + | Reji Pacheco Conversion - 06/15/2019 1:42 PM PDT Patient Name: CARRIE, | | LAURIEDate of : 1945 Performing Physician: Finesse Nunez [...] 23.26 cmAVA Vmax: 3.14 cm2AVA (VTI): 2.90 [id number] Dopp: | | 4.57 l/msdy6NHMS Dopp: 7.95 l/minHR: 117.60 BPMLVOT maxP.36 mmHgLVOT [...] maxP.88 mmHgTR Vmax: | | 2.44 m/s Information Technology Teacher: ABAuthenticated by: Finesse Aponte Date/Time: 11-15-2013 | [...] |TR Vmax: 2.44 m/s | | | |Information Technology Teacher: AB | |Authenticated by: Finesse Nunez MD [...] | | EN LEVEL | performed at [facility];[address] | ug/mL | LAB | | | | [address];[place], [place] | | | | | | [address] | | | | + + + [...] EXTERNAL | | | | performed at [facility];[address] | mmol/L | LAB | | | | [address];[place] | | | | | | [address] | | | | + + + + + + | K | 3.9Comment: Testing | 3.5 - 4.9 | EXTERNAL | | | | performed at [facility];888 | mmol/L | LAB | | | | [address];[place] | | | | | | [address] | | | | + + + + + + | Cl | 114 (H)Comment: Testing | 99 - 109 mmol/L | EXTERNAL | | | | performed at [facility];888 | | LAB | | | | [address];[place] | | | | | | [address] | | | | + + + + + + | CO2 | 20 (L)Comment: Testing | 23 - 32 mmol/L | EXTERNAL | | | | performed at [facility];888 | | LAB | | | | [address];[place] | | | | | | [address] | | | | + + + + + + | Anion Gap | 14Comment: Testing | 5 - 20 mmol/L | EXTERNAL | | | | performed at [facility];888 | | LAB | | | | [address];[place] | | | | | | [address] | | | | + + + + + + | Glucose, | 153 (H)Comment: Testing | 65 - 99 mg/dL | EXTERNAL | | | Fasting | performed at [facility];888 | | LAB | | | | [address];[place] | | | | | | [address] | | | | + + + + + + | BUN | 8Comment: Testing | 8 - 25 mg/dL | EXTERNAL | | | | performed at [facility];888 | | LAB | | | | [address];[place] | | | | | | [address] | | | | + + + + + + | Creatinine | 0.92Comment: Testing | 0.50 - 1.00 | EXTERNAL | | | | performed at [facility];888 | mg/dL | LAB | | | | [address];[place] | | | | | | [address] | | | | + + + + + + | BUN/Creatin | 9Comment: Testing | | EXTERNAL | | | ine Ratio | performed at [facility];888 | | LAB | | | | [address];[place] | | | | | | [address] | | | | + + + + + + | Calcium | 7.4 (L)Comment: Testing | 8.5 - 10.2 | EXTERNAL | | | | performed at [facility];888 | mg/dL | LAB | | | | [address];[place], [place] | | | | | | [address] | | | | + + + [...] | | | | | | at [facility];[address];[place] [address] | | | | + + + [...] EXTERNAL | | | | performed at [facility] | | LAB | | | | [address];[place] | | | | | | [address] | | | | + + + [...] | | | | | | ACUTE [place] Testing | | | | | | performed at [facility];888 | | | | | | [facility];[place], [place] | | | | | | [address] | | | | + + + [...] EXTERNAL | | | | performed at [facility];888 | | LAB | | | | [address];[place], [place] | | | | | | [address] | | | | + + + [...] | | EN LEVEL | performed at [facility];888 | ug/mL | LAB | | | | [address];[place], [place] | | | | | | [address] | | | | + + + [...] + + | Historically converted procedure from [facility] environment | EXTERNAL LAB | + [...] EXTERNAL | | | | performed at [facility];888 | mmol/L | LAB | | | | [address];[place], [place] | | | | | | [address] | | | | + + + [...] EXTERNAL | | | | performed at [facility];888 | | LAB | | | | [address];[place], [place] | | | | | | [address] | | | | + + + [...] | | | | | | ACUTE [place] CKTRP PHONED TO | | | | | | ICU GAYLE N AT 0540 BY | | | | | | LJREAD BACK RESULTS | | | | | | VERIFIEDTesting | | | | | | performed at [facility];[address] | | | | | | [address];[place] | | | | | | [address] | | | | + + + [...] + +---------+ + + External Lab: SAMARIA (11/15/2013 4:08 AM PST) + + + [...] | | | | | [place] [address] | | | | + + + + + + | Non- | 3.94Comment: Testing | 3.70 - 5.10 | EXTERNAL | | | [place] Blood | performed at [facility], [address] | M/uL | LAB | | | Cells | [address], | | | | | Counted | [place] [address] | | | | + + + + + + | Hemoglobin | 10.9 (L)Comment: Testing | 11.3 - 15.5 | EXTERNAL | | | | performed at [facility], [address] | g/dL | LAB | | | | [address], | | | | | | [place] [address] | | | | + + + + + + | Hematocrit, | 33.7 (L)Comment: Testing | 34.0 - 46.0 % | EXTERNAL | | | POC | performed at [facility], [address] | | LAB | | | | [address], | | | | | | [place] [address] | | | | + + + + + + | MCV | 85.6Comment: Testing | 80.0 - 100.0 fl | EXTERNAL | | | | performed at [facility], [address] | | LAB | | | | [address], | | | | | | [place] [address] | | | | + + + + + + | MCH | 27.7Comment: Testing | 27.0 - 34.0 pg | EXTERNAL | | | | performed at [facility], [address] | | LAB | | | | [address], | | | | | | [place] [address] | | | | + + + + + + | MCHC | 32.3Comment: Testing | 32.0 - 35.5 | EXTERNAL | | | | performed at [facility], [address] | g/dL | LAB | | | | [address], | | | | | | [place] [address] | | | | + + + + + + | RDW-CV | 37.6Comment: Testing | 37 - 53 fl | EXTERNAL | | | | performed at [facility], [address] | | LAB | | | | [address], | | | | | | [place] [address] | | | | + + + + + + | Platelet | 196Comment: Testing | 150 - 400 K/uL | EXTERNAL | | | Count | performed at [facility], [address] | | LAB | | | Plasma | [address], | | | | | | [place] [address] | | | | + + + + + + | MPV | 7.3Comment: Testing | fl | EXTERNAL | | | | performed at [facility], [address] | | LAB | | | | [address], | | | | | | [place] [address] | | | | + + + + + + | Differentia | AUTOMATEDComment: | | EXTERNAL | | | l Type | Testing performed at | | LAB | | | | [facility], [address] | | | | | | [place] | | | | | | [address] | | | | + + + [...] | | | Serum | performed at [facility];[address] | mOsm/kg | LAB | | | | [address];[place], [place] | | | | | | [address] | | | | + + + [...] EXTERNAL | | | | performed at [facility];[address] | | LAB | | | | [address];[place] | | | | | | [address] | | | | + + + [...] | | EN LEVEL | performed at [facility];[address] | ug/mL | LAB | | | | [address];[place], [place] | | | | | | [address] | | | | + + + [...] EXTERNAL | | | | performed at [facility];[address] | mmol/L | LAB | | | | [address];[place] | | | | | | [address] | | | | + + + + + + | K | 3.2 (L)Comment: Testing | 3.5 - 4.9 | EXTERNAL | | | | performed at [facility];[address] | mmol/L | LAB | | | | [address];[place] | | | | | | [address] | | | | + + + + + + | Cl | 117 (H)Comment: Testing | 99 - 109 mmol/L | EXTERNAL | | | | performed at [facility];[address] | | LAB | | | | [address];[place] | | | | | | [address] | | | | + + + + + + | CO2 | 13 (LL)Comment: CO2 | 23 - 32 mmol/L | EXTERNAL | | | | PHONED TO AIDEE GAYLE Filomena AT | | LAB | | | | 0520 BY LJREAD BACK | | | | | | RESULTS VERIFIEDTesting | | | | | | performed at [facility];[address] | | | | | | [address];[place] | | | | | | [address] | | | | + + + + + + | Anion Gap | 20Comment: Testing | 5 - 20 mmol/L | EXTERNAL | | | | performed at [facility];[address] | | LAB | | | | [address];[place] | | | | | | [address] | | | | + + + + + + | Glucose, | 130 (H)Comment: Testing | 65 - 99 mg/dL | EXTERNAL | | | Fasting | performed at [facility];[address] | | LAB | | | | [address];[place] | | | | | | [address] | | | | + + + + + + | BUN | 8Comment: Testing | 8 - 25 mg/dL | EXTERNAL | | | | performed at [facility];[address] | | LAB | | | | [address];[place] | | | | | | [address] | | | | + + + + + + | Creatinine | 0.69Comment: Testing | 0.50 - 1.00 | EXTERNAL | | | | performed at [facility];[address] | mg/dL | LAB | | | | [address];[place] | | | | | | [address] | | | | + + + + + + | BUN/Creatin | 12Comment: Testing | | EXTERNAL | | | ine Ratio | performed at [facility];[address] | | LAB | | | | [address];[place] | | | | | | [address] | | | | + + + + + + | Calcium | 6.7 (L)Comment: Testing | 8.5 - 10.2 | EXTERNAL | | | | performed at [facility];[address] | mg/dL | LAB | | | | [address];[place] | | | | | | [address] | | | | + + + + + + | Protein, | 5.2 (L)Comment: Testing | 6.3 - 8.2 g/dL | EXTERNAL | | | Total | performed at [facility];[address] | | LAB | | | | [address];[place] | | | | | | [address] | | | | + + + + + + | Albumin | 3.3Comment: Testing | 3.3 - 4.8 g/dL | EXTERNAL | | | | performed at [facility];[address] | | LAB | | | | [address];[place] | | | | | | [address] | | | | + + + + + + | Globulin | 1.9Comment: Testing | 1.3 - 4.9 g/dL | EXTERNAL | | | | performed at [facility];[address] | | LAB | | | | [address];[place] | | | | | | [address] | | | | + + + + + + | A/G Ratio | 1.8Comment: Testing | 1.0 - 2.4 | EXTERNAL | | | | performed at [facility];[address] | | LAB | | | | [address];[place] | | | | | | [address] | | | | + + + + + + | Bilirubin | 0.2Comment: Testing | 0.1 - 1.5 mg/dL | EXTERNAL | | | Total | performed at [facility];[address] | | LAB | | | | [address];[place] | | | | | | [address] | | | | + + + + + + | ALP, | 47Comment: Testing | 35 - 115 U/L | EXTERNAL | | | External | performed at [facility];[address] | | LAB | | | | [address];[place] | | | | | | [address] | | | | + + + + + + | AST | 49 (H)Comment: Testing | 10 - 45 U/L | EXTERNAL | | | | performed at [facility];[address] | | LAB | | | | [address];[place] | | | | | | [address] | | | | + + + + + + | ALT | 61Comment: Testing | 10 - 65 U/L | EXTERNAL | | | | performed at [facility];[address] | | LAB | | | | [address];[place] | | | | | | [address] | | | | + + + [...] | | | | | | at [facility];[address] | | | | | [address];[place] [address] | | | | + + + [...] | | | Fingerstick | performed at [facility];[address] | | LAB | | | | [address];[place], [place] | | | | | | [address] | | | | + + + [...] + + | [facility] | EXTERNAL LAB | + + + + +---------+ + + | Performing | Address | City/State/Zipcode | Phone Number | | Organization | | | | + +---------+ + + | EXTERNAL LAB | | | | + +---------+ + + POC CG Danielle, ISFRANKLIN Arterial (11/14/2013 11:47 PM PST) + + + + + + | Component | Value | Ref Range | Performed | Pathologist | | | | | At | Signature | + + + + + + | PH ART | 7.141 (LL)Comment: | 7.350 - 7.450 | EXTERNAL | | | | Testing performed at | | LAB | | | | [facility];[address];[place] [address] | | | | + + + + + + | PCO2 ART | 40Comment: Testing | 35 - 45 mmHg | EXTERNAL | | | | performed at [facility];[address] | | LAB | | | | [address];[place] | | | | | | [address] | | | | + + + + + + | PO2 ART | 283 (H)Comment: Testing | 80 - 105 mmHg | EXTERNAL | | | | performed at [facility];[address] | | LAB | | | | [address];[place] | | | | | | [address] | | | | + + + + + + | Lactate, | 3.7 (H)Comment: Testing | 0.36 - 1.25 | EXTERNAL | | | Arterial | performed at [facility];[address] | mmol/L | LAB | | | | [address];[place] | | | | | | [address] | | | | + + + + + + | HCO3 ART | 14 (L)Comment: Testing | 22 - 26 mmol/L | EXTERNAL | | | | performed at [facility];[address] | | LAB | | | | [address];[place] | | | | | | [address] | | | | + + + + + + | POC | 15 (L)Comment: Testing | 23 - 27 mEq/L | EXTERNAL | | | APPEARANCE | performed at [facility];[address] | | LAB | | | UA | [address];[place] | | | | | | [address] | | | | + + + + + + | Base | 15 (H)Comment: Testing | 0.0 - 2.0 | EXTERNAL | | | deficit | performed at [facility];[address] | mmol/L | LAB | | | | [address];[place] | | | | | | [address] | | | | + + + + + + | O2 SAT ART | 100 (H)Comment: Testing | 95 - 98 % | EXTERNAL | | | | performed at [facility];[address] | | LAB | | | | [address];[place] | | | | | | [address] | | | | + + + + + + | FiO2, POC | 70Comment: Testing | % | EXTERNAL | | | | performed at [facility];[address] | | LAB | | | | [address];[place] | | | | | | [address] | | | | + + + + + + | Comment, | Tidal Volume = | | EXTERNAL | | | POC | 500Comment: Peep = 5Resp | | LAB | | | | Rate = 15Testing | | | | | | performed at [facility];[address] | | | | | | [address];[place] | | | | | | [address] | | | | + + + + + + + + | Specimen | + + | | + + + +---------+ + + | Performing | Address | City/State/Zipcode | Phone Number | | Organization | | | | + +---------+ + + | EXTERNAL LAB | | | | + +---------+ + + XR Chest 1 Rox (11/14/2013 11:33 PM PST) + + | [...] RONALD TORRESTYFAWTHROP XR CHEST 1 VIEW 11/14/2013 11:33 PM [...] Conversion - 06/15/2019 1:42 PM PDT RONALD TORRESTYFAWTHROPXR CHEST 1 | | VIEW11/14/2013 11:33 PM [...] EXTERNAL | | | | performed at [facility];[address] | mmol/L | LAB | | | | [address];[place] | | | | | | [address] | | | | + + + [...] | | | (Calc) | performed at [facility];[address] | mmol/L | LAB | | | | [address];[place] | | | | | | [address] | | | | + + + + + + | pH, Bld | 7.179 (L)Comment: | 7.300 - 7.450 | EXTERNAL | | | | Testing performed at | | LAB | | | | [facility];[address];[place] [address] | | | | + + + [...] | | | Patient | performed at [facility];[address] | | LAB | | | | [address];[place], [place] | | | | | | [address] | | | | + + + [...] | | | | performed at [facility];[address] | | | | | | [facility];[place], [place] | | | | | | [address] | | | | + + + [...] EXTERNAL | | | | performed at [facility];[address] | | LAB | | | | [address];[place] | | | | | | [address] | | | | + + + + + + | Non- | 4.41Comment: Testing | 3.70 - 5.10 | EXTERNAL | | | Red Blood | performed at [facility];[address] | M/uL | LAB | | | Cells | [address];[place] | | | | | Counted | [address] | | | | + + + + + + | Hemoglobin | 12.7Comment: Testing | 11.3 - 15.5 | EXTERNAL | | | | performed at [facility];[address] | g/dL | LAB | | | | [address];[place] | | | | | | [address] | | | | + + + + + + | Hematocrit, | 37.4Comment: Testing | 34.0 - 46.0 % | EXTERNAL | | | POC | performed at [facility];[address] | | LAB | | | | [address];[place] | | | | | | [address] | | | | + + + + + + | MCV | 84.7Comment: Testing | 80.0 - 100.0 fl | EXTERNAL | | | | performed at [facility];[address] | | LAB | | | | [address];[place] | | | | | | [address] | | | | + + + + + + | MCH | 28.8Comment: Testing | 27.0 - 34.0 pg | EXTERNAL | | | | performed at [facility];[address] | | LAB | | | | [address];[place] | | | | | | [address] | | | | + + + + + + | MCHC | 34.0Comment: Testing | 32.0 - 35.5 | EXTERNAL | | | | performed at [facility];[address] | g/dL | LAB | | | | [address];[place] | | | | | | [address] | | | | + + + + + + | RDW-CV | 37.2Comment: Testing | 37 - 53 fl | EXTERNAL | | | | performed at [facility];[address] | | LAB | | | | [address];[place] | | | | | | [address] | | | | + + + + + + | Platelet | 296Comment: Testing | 150 - 400 K/uL | EXTERNAL | | | Count | performed at [facility];[address] | | LAB | | | Plasma | [address];[place] | | | | | | [address] | | | | + + + + + + | MPV | 7.2Comment: Testing | fl | EXTERNAL | | | | performed at [facility];[address] | | LAB | | | | [address];[place] | | | | | | [address] | | | | + + + + + + | Differentia | AUTOMATEDComment: | | EXTERNAL | | | l Type | Testing performed at | | LAB | | | | [facility];[address];[place] [address] | | | | + + + [...] EXTERNAL | | | | performed at [facility];[address] | | LAB | | | | [address];[place] | | | | | | [address] | | | | + + + [...] EXTERNAL | | | | performed at [facility];[address] | | LAB | | | | [address];[place] | | | | | | [address] | | | | + + + [...] | | EN LEVEL | performed at [facility];[address] | ug/mL | LAB | | | | [address];[place], [place] | | | | | | [address] | | | | + + + [...] | | | Total | performed at [facility];[address] | | LAB | | | | [address];[place], [place] | | | | | | [address] | | | | + + + + + + | Albumin | 3.1 (L)Comment: Testing | 3.3 - 4.8 g/dL | EXTERNAL | | | | performed at [facility];[address] | | LAB | | | | [address];[place] | | | | | | [address] | | | | + + + + + + | Bilirubin | 0.2Comment: Testing | 0.1 - 1.5 mg/dL | EXTERNAL | | | Total | performed at [facility];[address] | | LAB | | | | [address];[place] | | | | | | [address] | | | | + + + + + + | Bilirubin | <0.1Comment: Testing | 0.0 - 0.3 mg/dL | EXTERNAL | | | Direct | performed at [facility];[address] | | LAB | | | | [address];[place] | | | | | | [address] | | | | + + + + + + | ALP, | 76Comment: Testing | 35 - 115 U/L | EXTERNAL | | | External | performed at [facility];[address] | | LAB | | | | [address];[place] | | | | | | [address] | | | | + + + + + + | AST | 75 (H)Comment: Testing | 10 - 45 U/L | EXTERNAL | | | | performed at [facility];[address] | | LAB | | | | [address];[place] | | | | | | [address] | | | | + + + + + + | ALT | 67 (H)Comment: Testing | 10 - 65 U/L | EXTERNAL | | | | performed at [facility];[address] | | LAB | | | | [address];[place] | | | | | | [address] | | | | + + + [...] EXTERNAL | | | | performed at [facility];[address] | mmol/L | LAB | | | | [address];[place] | | | | | | [address] | | | | + + + + + + | K | 3.0 (L)Comment: Testing | 3.5 - 4.9 | EXTERNAL | | | | performed at [facility];[address] | mmol/L | LAB | | | | [address];[place] | | | | | | [address] | | | | + + + + + + | Cl | 114 (H)Comment: Testing | 99 - 109 mmol/L | EXTERNAL | | | | performed at [facility];[address] | | LAB | | | | [address];[place] | | | | | | [address] | | | | + + + + + + | CO2 | 16 (L)Comment: Testing | 23 - 32 mmol/L | EXTERNAL | | | | performed at [facility];[address] | | LAB | | | | [address];[place] | | | | | | [address] | | | | + + + + + + | Anion Gap | 16Comment: Testing | 5 - 20 mmol/L | EXTERNAL | | | | performed at [facility];[address] | | LAB | | | | [address];[place] | | | | | | [address] | | | | + + + + + + | Glucose, | 187 (H)Comment: Testing | 65 - 99 mg/dL | EXTERNAL | | | Fasting | performed at [facility];[address] | | LAB | | | | [address];[place] | | | | | | [address] | | | | + + + + + + | BUN | 10Comment: Testing | 8 - 25 mg/dL | EXTERNAL | | | | performed at [facility];[address] | | LAB | | | | [address];[place] | | | | | | [address] | | | | + + + + + + | Creatinine | 0.79Comment: Testing | 0.50 - 1.00 | EXTERNAL | | | | performed at [facility];[address] | mg/dL | LAB | | | | [address];[place] | | | | | | [address] | | | | + + + + + + | BUN/Creatin | 13Comment: Testing | | EXTERNAL | | | ine Ratio | performed at [facility];[address] | | LAB | | | | [address];[place] | | | | | | [address] | | | | + + + + + + | Calcium | 6.5 (L)Comment: Testing | 8.5 - 10.2 | EXTERNAL | | | | performed at [facility];[address] | mg/dL | LAB | | | | [address];[place] | | | | | | [address] | | | | + + + [...] | | | | | | at [facility];[address];[place] [address] | | | | + + + [...] | + + + | RONALD BUTLER 1945 [address] [...] Conversion - 06/15/2019 1:42 PM PDT RONALD [id number] years | | FemaleCT HEAD WO CONTRAST11/14/2013 [...] PDT RONALD DOHERTYFAWTHROPXR CHEST 1 | | VIEW11/14/2013 8:56 PM [...] | Testing performed at | | | [facility];[address] [facility];[place] [address] GRAM STAIN | | | GREATER THAN 10 WBCS/LPF | | | LESS THAN 10 SEC/LPF | | | 2+ GRAM POSITIVE COCCI | | | 1+ GRAM POSITIVE RODS | | | Testing performed at [facility], [address] | | [place] [address] CULTURE | | | 2+ NORMAL UPPER RESPIRATORY CURTIS | | | Testing performed at [facility], [address] | | | [place] [address] REPORT STATUS | | | 11/16/2013 FINAL [...] EXTERNAL | | | | performed at [facility];[address] | | LAB | | | | [address];[place] | | | | | | [address] | | | | + + + + + + | RBC, UA | 0-2Comment: Testing | 0 - 5 /hpf | EXTERNAL | | | | performed at [facility];[address] | | LAB | | | | [address];[place] | | | | | | [address] | | | | + + + + + + | Epithelial | NONE SEENComment: | /lpf | EXTERNAL | | | Cells | Testing performed at | | LAB | | | | [facility];[address];[place] [address] | | | | + + + + + + | Bacteria, | TRACE (A)Comment: | | EXTERNAL | | | UA | Testing performed at | | LAB | | | | [facility];[address];[place] [address] | | | | + + + [...] EXTERNAL | | | | performed at [facility];[address] | | LAB | | | | [address];[place], [place] | | | | | | [address] | | | | + + + + + + | Clarity, | CLEARComment: Testing | | EXTERNAL | | | Urine | performed at [facility];[address] | | LAB | | | | [address];[place] | | | | | | [address] | | | | + + + + + + | Specific | 1.004Comment: Testing | 1.001 - 1.035 | EXTERNAL | | | [place], | performed at [facility];[address] | | LAB | | | Urine | [address];[place] | | | | | | [address] | | | | + + + + + + | Leukocyte | TRACE (A)Comment: | | EXTERNAL | | | Esterase, | Testing performed at | | LAB | | | Urine | [facility];[address];[place] [address] | | | | + + + + + + | Nitrite, | NEGATIVEComment: Testing | | EXTERNAL | | | Urine | performed at [facility];[address] | | LAB | | | | [address];[place] | | | | | | [address] | | | | + + + + + + | Urobilinoge | 0.2Comment: Testing | mg/dL | EXTERNAL | | | n, Urine | performed at [facility];[address] | | LAB | | | | [address];[place] | | | | | | [address] | | | | + + + + + + | Protein, | NEGATIVEComment: Testing | mg/dL | EXTERNAL | | | Urine | performed at [facility];[address] | | LAB | | | | [address];[place] | | | | | | [address] | | | | + + + + + + | pH, Urine | 5.0Comment: Testing | 4.6 - 8.0 | EXTERNAL | | | | performed at [facility];[address] | | LAB | | | | [address];[place] | | | | | | [address] | | | | + + + + + + | Blood, | NEGATIVEComment: Testing | | EXTERNAL | | | Urine | performed at [facility];[address] | | LAB | | | | [address];[place] | | | | | | [address] | | | | + + + + + + | Ketones | NEGATIVEComment: Testing | mg/dL | EXTERNAL | | | | performed at [facility];[address] | | LAB | | | | [address];[place] | | | | | | [address] | | | | + + + + + + | Bilirubin, | NEGATIVEComment: Testing | | EXTERNAL | | | Urine | performed at [facility];[address] | | LAB | | | | [address];[place] | | | | | | [address] | | | | + + + + + + | Glucose, | NEGATIVEComment: Testing | mg/dL | EXTERNAL | | | Urine | performed at [facility];[address] | | LAB | | | | [address];[place] | | | | | | [address] | | | | + + + [...] EXTERNAL LAB | | Testing performed at [facility];[address] [place] [address];[place] [address] MRSA PCR | | | NEGATIVE Testing performed at | | | [facility];[address] [place] [address];[place] [address] | | + + + + +---------+ [...] | | | Fingerstick | performed at [facility];[address] | | LAB | | | | [address];[place] | | | | | | [address] | | | | + + + [...]
--- OUTSIDE RECORDS SUMMARY | ~2020-05-30 | XMS | Encounter Summary ---
Demographics + + + | Address | [address] | | | [place] [address] | + + + | Home Phone [...] Providers + +------+ + | Care Receiving Associate Name | Role | Phone | [...] Specialty | Neurosurgery | Diagnoses | | Romain, | | | Services | | Foraminal | Spenser, | Darrin | | | Required | | stenosis of | Yaneli, | BRI Doan | | | | | lumbar | [address] | [address] | | | | | region | [address], | [address]VE [place], | | | | | Chronic low | [address] | [place] [address] | | | | | back pain | LAVELL CHAVEZ | Phone: | | | | | Facet | [address] | [phone] | | | | | arthritis of | Phone: | Fax: | | | | | lumbar | [phone] | [phone] | | | | | region | Fax: | | | | | | Scoliosis of | [phone] | | | | | | lumbar | | | | | | | spine Acute | | | | | | | renal | | | | | | | failure | | | | | | | (HCC) | | | | | | | Procedures | | | | | | | [place] OFFICE | | | | | | [...] Orders Only | [facility] | Spenser, | 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 - | | | | [address] | [address], [address] | left L5-S1 (Primary | | | | [address] | [place] [address] | Dx); Chronic low | | | | [address] | [phone] | back pain; 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
--- OUTSIDE RECORDS SUMMARY | ~2020-05-30 | XMS | Encounter Summary ---
Demographics + + + | Address | [address] | | | [place] [address] | + + + | Home Phone [...] Team Providers + +------+ + | Care Message Broker Developer Name | Role | Phone | [...] + + | 04/15/ | Office | [facility] | Denys Sibley, | S/P insertion of | | 2019 | Visit | [facility] | DO [address] | spinal cord | | | | [address] | [facility] [place] | stimulator (Primary | | | | [address] | [phone] | Dx); Spinal stenosis | | | | [place], [place] | | of lumbosacral | | | | [address] | | region; Intractable | | | | [phone] | | back pain; Encounter | | [...] + + + | Blood Pressure | 112/57 | 04/15/2020 8:07 AM | | | | | PDT | | + + + + + | Pulse | 56 | 04/15/2020 8:07 AM | | | | | PDT | | + + + + + | Temperature | 36.6 C (97.9 F) | 04/15/2020 8:07 AM | | | | | PDT | | + + + + + | Respiratory Rate | 16 | 04/15/2020 8:07 AM | | | | | PDT | | + + + + + | Oxygen Saturation | 98% | 04/15/2020 8:07 AM | | | | | PDT | | + + + + + | Inhaled Oxygen | - | - | | | Concentration | | | | + + + + + | Weight | - | - | | + + + + + | Height | 154.9 cm (5' 1") | 04/15/2020 8:07 AM | | | | | PDT | | + + + + + | Body Mass Index | - | - | | + + + + + documented in this encounter Progress Denys Posada, DO - 04/15/2020 8:15 AM PDTFormatting of this note might be different fr om the original. CHRONIC PAIN VISIT Patient ID: Kori Rubio is a 74 y.o. female (: 1945). Subjective: Chronic Pain: The primary encounter diagnosis was S/P insertion of spinal cord stimulator. 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 Kori [...] including but not limited to physical therapy, intensive care nurse, acupuncture, massage therapy, and nutritional [...] personal goal of pain management is: " 3 pain-free". Things she is doing to reach that goal include: Home exercise program consult ation with interventional pain management. Progress toward meeting that goal has been: fair to poor. Medication FYI Flag Type Author Status Filed Medication Agreement Rupa Nye, Plastic Top Assembler Active 11/14/2019 1:49 PM Pain Contract- Dr. Sibley 11/14/2019 PEG Pain screening tool (Pain, enjoyment, general activity) Total score: (Printable questionnaires in Chinese ) Interpretation of Total Score: PEG scores are used to track changes over time. It should de crease after therapy has begun. Last 4 PEG Scores: No flowsheet data found. Opioid Risk Tool (ORT): Total Score Temp: 36.6 C (97.9 F) Temp Source: Oral Pulse: 56 Resp: 16 BP: 112/57 SpO2: 98 % (From Chronic Pain tab; printable questionnaires in Chinese) Interpretation of Total Score: 0 to 3 = Low risk: 6% chance of developing problematic behav iors, 4 to 7 = Moderate risk: 28% chance of developing problematic behaviors, 8 or more = Hi gh risk: 90% chance of developing problematic behaviors. No flowsheet data found. Outpatient Morphine Equivalent Daily Dose (MEDD) 04/15/20 - 05/15/20 60 mg MEDD Order Name Dose Route [...] factor of 1 = 60 mg MEDD 05/16/20 and after None Current Outpatient Medications: ALBUTEROL IN, Inhale into the lungs., Disp: , Rfl: clonazePAM (KLONOPIN) 1 mg [...] 4 times daily., Disp: , Rfl: 3 warfarin (COUMADIN) 5 mg tablet, Take 1 [...] 15-21 = Severe Anxiety) Additional Problems: HPI Close compression fracture of lumbar fifth vertebra. Facet arthritis lumbar region, scolio sis lumbar spine, or foraminal stenosis lumbar region L5-S1 on the left, chronic bilateral l ow back pain with right-sided sciatica, degenerative lumbar spinal stenosis, intractable haider k pain, spinal stenosis lumbar region, status post insertion of spinal cord stimulator, long -term current use of opioid analgesics, pressure fracture T12 vertebra History: Past Medical History: Diagnosis Date Acid [...] Procedure: KYPHOPLASTY; Surgeon: Alfredo Casillas DO; Location: [facility] MA[facility] OR; Service: Pa in Management; Laterality: N/A; L5 FRACTURE SURGERY ANKLE HERNIA REPAIR HYSTERECTOMY HYSTERECTOMY LAMINECTOMY N/A 08/03/2019 Procedure: LAMINOTOMY THORACIC / LUMBAR W/ PLACEMENT SPINAL CORD STIMULATOR; Surgeon: Suly Hutchins MD; [place] [facility] [place] OTHER [place]GICAL HISTORY [...] for arthralgias, back pain and gait problem. Psychiatric/Behavioral: The patient is nervous/anxious. Objective: Vital Signs: BP 112/57 | Pulse 56 | Temp 36.6 C (97.9 F) (Oral) | Resp 16 | Ht 1.54 9 m (5' 1") | LMP (LMP Unknown) | SpO2 98% | BMI 21.73 kg/m Physical Exam 24-year-old female alert and oriented x4 no acute distress vital signs are st able bowel bladder continent. Patient is afebrile. Patient has no respiratory symptoms. Patient has not traveled to an endemic area in the last 4 to 6 weeks. We reviewed the results of out of facility MRI of the lumbar spine showing a new compressio n fracture 25% of the T12 vertebra. With the old compression fracture lumbar vertebra L5. With degenerative lumbar spondylosis throughout the lumbar spine. Patient has an appointmen t later today with interventional pain management regarding any possible injections and/or h er spinal cord stimulator which patient claims is not working the way it should be. Active range of motion bilateral upper extremities within functional limits muscle strength is 4/5. Active range of motion bilateral lower extremities within functional limits muscle strength is 3+/5. Patient has difficulty rising on heels or toes. Straight leg testing is negative seated flexion test is positive. Balance sitting is good, standing is fair plus. Patient utilizes a roller walker with all ambulation weightbearing as tolerated. After lengthy discussion with patient reviewing the results of the MRI. And pointed out to her what I thought her options might be including interventional pain injections at that L5 -S1 levels., And/or vertebroplasty or kyphoplasty regarding T12 compression fracture. And/ or adjustment of her spinal cord stimulator placement. These were 3 separate issues that sh richie should be able to take up with interventional pain management and/or orthospine surgery in the near future. 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 Patient demonstrates improved functional status on above [...] reviewed, listed controlled substances are consistent with [facility] prescriptions and patient reported use. Controlled Medications: no change. Refills given as appropriate for the next 1 months, and she will follow up befo re next refill is due. Recent Review Flowsheet Data There is no flowsheet data to display. Pertinent Pain History: Chronic pain related to items that appear in above history of present illness recently T12 compression fracture Helpful treatments: Heat and pain medication Failed treatments: Ice therapy [...] imited to physical therapy, massage therapy, acupuncture, intensive care nurse, along with niki mmended psychological [...] and coordination of care with other health veterinarian laboratory animal care and monitoring labs results, other test results and imagin g including [facility] and/or [facility] prescription monitoring systems. This document has been created using [employer] Voice Recognition software and [employer]. The entry has been reviewed for content and accuracy, but there may still exist "sound alike" watch assembly inspector word errors and/or unintended additions and deletions. If there is any question please contact the author of the document: Denys Sibley DOElectronically sig marianne by Denys Sibley DO at 04/15/2020 9:19 AM PDTdocumented in this encounter Plan of Treatment +--------+---------+ + + + | Date | Type | Specialty | Care Team | Description | +--------+---------+ + + + | 06/18/ | Office | Pain Medicine | Denys Sibley, | | | 2019 | Visit | | [address] | | | | | | [place] | | | | | | [id number] | | | | | | | | +--------+---------+ + + + | 06/26/ | Office | Cardiology | Monserrat Weems | | 2019 | Visit | | [address] | | | | | | [address] | | | | | | [place] [address] | | | | | | [phone] | | | | | | | | +--------+---------+ + + + documented as of this encounter Procedures + +--------+ + + + | Procedure Name | Priori | Date/Time | Associated Diagnosis | Comments | | | ty | | | | + +--------+ + + + | IMAGING REPORT - | | 02/20/2020 | | Results for this | | EXTERNAL SCAN | | 12:00 AM | | procedure are in the | | | | PDT | | results section. | + +--------+ + + + documented in this encounter Results IMAGING REPORT - EXTERNAL SCAN (02/20/2020 12:00 AM PDT) + + + | [...] neurogenic claudication | + + | Chronic bilateral low [...] region, subsequent encounter | + + | SACROILIITIS Sacroiliitis, not elsewhere classified | + + | BACK PAIN, LUMBAR Lumbago | + + | Strain of lumbar region, sequela | + + | Closed compression fracture of fifth lumbar vertebra, sequela | + + documented in this encounter
--- OUTSIDE RECORDS SUMMARY | ~2020-05-30 | XMS | Encounter Summary ---
Demographics + + + | Address | [address] | | | [place] [address] | + + + | Home Phone [...] Providers + +------+ + | Care Parking Lot Attendant And Cashier Name | Role | Phone | [...] | Telephone | [facility] | Brtita Hankins MD | Appointment | | 2012 | | [facility] | [address] | | | | | [address] | [facility] | | | | | [address] | [place] [address] | | | | | [facility] | [phone] | | | | | [place], [place] | | | | | | [address] | | | | | | [phone] | | | +--------+ + + + [...]
--- OUTSIDE RECORDS SUMMARY | ~2020-05-30 | XMS | Encounter Summary ---
Demographics + + + | Address | [address] | | | [place] [address] | + + + | Home Phone [...] Providers + +------+ + | Care Mobile Marketing Specialist Name | Role | Phone | + +------+ + | Concepción Gallardo NP | PCP | | + +------+ + Encounter Details +--------+ + + + + | Date | Type | Department | Care Team | Description | +--------+ + + + + | 11/26/ | Emergency | [facility] | Garth Pedroza MD | Convulsions, | | 2016 | | MEDICAL CENTER | [address] | unspecified | | | | EMERGENCY CENTER | [place] [address] | convulsion type | | | | [address] | [phone] | ([facility]); Generalized | | | | [place], [place] | | weakness | | | | [address] | | | | | | [phone] | | | +--------+ + + + [...] Notes by Shan Shane RN at 11/26/15 1257 Author: Shan Shane RN Service: (none) Author Type: Registered Nurse Filed: 11/26/15 1257 Date of Service: 11/26/15 1257 Status: Signed Instrument Person: Shan Shane RN (Registered Nurse) Patient given [...] Filed: 11/26/15 1233 Date of Service: 11/26/15 1232 Status: Signed Instrument Person: Shan Shane RN (Registered Nurse) Pt did [...] Date of Service: 11/26/15 1230 Status: Signed Instrument Person: Shan Shane RN (Registered Nurse) MD at bedside. Alejandrina Shan Shane RN 11/26/15 1230 onver hiren Transaction, Provider Unknown - 11/26/2015 12:26 PM PST ED Notes by Shan Shane RN at 11/26/15 1226 Author: Shan Shane RN Service: (none) Author Type: Registered Nurse Filed: 11/26/15 1227 Date of Service: 11/26/15 1226 Status: Signed Instrument Person: Shan Shane RN (Registered Nurse) Per EMS Pt was getting MRI and had a seizure. EMS reports blood sugar at facility was 80. P t given juice blood sugar up in 90's Shan Shane RN 11/26/15 1227 arth Pedroza MD - 11/26/2015 12:24 PM PSTFormatting of this note might be different from the origin al. ED Provider Notes by Garth Pedroza MD at 11/26/15 1224 Author: Garth Pedroza MD Service: (none) Author Type: Physician Filed: 11/26/15 1351 Date of Service: 11/26/15 1224 Status: Signed Instrument Person: Garth Pedroza MD (Physician) [facility] Department of Emergency Medicine 12:27 PM History of Present Illness Patient Identification oKri Castañeda is a 70 y.o. female. Patient information was obtained from patient and relative(s). History/Exam limitations: none. Patient presented to the Emergency Department by: [facility] 1721 Chief Complaint Chief Complaint Patient presents with Seizures Pt having MRI and had a seizure The patient complains of a seizure. 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 [...] 2 (HCC) COPD (chronic obstructive pulmonary disease) ([facility]) Restless leg Tardive dyskinesia Other chronic pain [...] no AMS No gross motor/sensory deficits Equal clinical nursing coordinator strength Medical Decision Making and Emergency Department [...] my clinical impression and treatment plan with hilad richie pt. Her history seems very odd as [...] Date/Time Urinalysis (reflex to micro/reflex to culture) [[id number]] Collected: 11/26/15 1313 Order Status: Completed Specimen Information: Urine, Clean Catch Updated: 11/26/15 13 24 COLOR UA COLORLESS CLARITY CLEAR Specific [place], UA 1.008 1.002 - 1.030 LEUKOCYTE ESTERASE NEGATIVE NEGATIVE NITRITE NEGATIVE NEGATIVE UROBILINOGEN NORMAL <1.1 mg/dL PROTEIN NEGATIVE NEGATIVE mg/dL PH,URINE 5.0 5.0 - 8.0 BLOOD NEGATIVE NEGATIVE KETONES NEGATIVE NEGATIVE mg/dL BILIRUBIN NEGATIVE NEGATIVE GLUCOSE NEGATIVE NEGATIVE mg/dL Cardiac Panel [[id number]] (Abnormal) Collected: 11/26/15 1241 Order Status: Completed [...] visit in 1 week [address] [facility] [place] [address] [facility] Emergency Department If symptoms worsen [address] [place] [address] Procedures Additional Documentation Procedures Attending Note: Documentation assistance provided by Verenice Garcia (Scribe). Information recorded by the scribe has been reviewed and validated by me. I ag ree with its contents. MD Garth Sauceda MD 11/26/15 1351 onversio n Transaction, Provider Unknown - 11/26/2015 12:23 PM PSTFormatting of this note might be di fferent from the original. ED Notes by Shan Shane RN at 11/26/15 5384 Author: Shan [place] RN Service: (none) Author Type: Registered Nurse Filed: 11/26/15 9978 Date of Service: 11/26/151222 Status: Signed Instrument Person: Shan Shane RN (Registered Nurse) Pt states she needs something to eat because it low blood sugar that causes the seizures. B lood sugar 96 per EMS. Shan Shane RN 11/26/15 1226 onver hiren Transaction, Provider Unknown - 11/26/2015 12:22 PM PST ED Notes by Sussy Dietrich RN at 11/26/151221 Author: Sussy Dietrich RN Service: (none) Author Type: Registered Nurse Filed: 11/26/151221 Date of Service: 11/26/151221 Status: Signed Instrument Person: Sussy Dietrich RN (Registered Nurse) Bed: 07 [...] [place] | | | | | | [address] | | | | | | | | +--------+---------+ + + + | 06/26/ | Office | Cardiology | Monserrat Weems | | | 2020 | Visit | | [address] | | | | | | [address] | | | | | | [place] [address] | | | | | | [phone] | | | | | | | [...] | | LAB | | | | [facility];[address] | | | [address];[place] [address] | | | | + + + + + + | Clarity, | CLEARComment: Testing | | EXTERNAL | | | Urine | performed at [facility];[address] | | LAB | | | | [address];[place] | | | | | | [address] | | | | + + + + + + | Specific | 1.008Comment: Testing | 1.002 - 1.030 | EXTERNAL | | | [place], | performed at [facility];[address] | | LAB | | | Urine | [address];[place] | | | | | | [address] | | | | + + + + + + | Leukocyte | NEGATIVEComment: Testing | | EXTERNAL | | | [place], | performed at [facility];[address] | | LAB | | | Urine | [address];[place] | | | | | | [address] | | | | + + + + + + | Nitrite, | NEGATIVEComment: Testing | | EXTERNAL | | | Urine | performed at [facility];[address] | | LAB | | | | [address];[place] | | | | | | [address] | | | | + + + + + + | Urobilinoge | NORMALComment: Testing | mg/dL | EXTERNAL | | | n, Urine | performed at [facility];[address] | | LAB | | | | [address];[place] | | | | | | [address] | | | | + + + + + + | Protein, | NEGATIVEComment: Testing | mg/dL | EXTERNAL | | | Urine | performed at [facility];[address] | | LAB | | | | [address];[place] | | | | | | [address] | | | | + + + + + + | pH, Urine | 5.0Comment: Testing | 5.0 - 8.0 | EXTERNAL | | | | performed at [facility];[address] | | LAB | | | | [address];[place] | | | | | | [address] | | | | + + + + + + | Blood, | NEGATIVEComment: Testing | | EXTERNAL | | | Urine | performed at [facility];[address] | | LAB | | | | [address];[place] | | | | | | [address] | | | | + + + + + + | Ketones | NEGATIVEComment: Testing | mg/dL | EXTERNAL | | | | performed at [facility];[address] | | LAB | | | | [address];[place] | | | | | | [address] | | | | + + + + + + | Bilirubin, | NEGATIVEComment: Testing | | EXTERNAL | | | Urine | performed at [facility];[address] | | LAB | | | | [address];[place] | | | | | | [address] | | | | + + + + + + | Glucose, | NEGATIVEComment: Testing | mg/dL | EXTERNAL | | | Urine | performed at [facility];[address] | | LAB | | | | [address];[place] | | | | | | [address] | | | | + + + [...] | | | | | | editorial assistant DIANA LARKIN (2) | | | | | | on 11/26/2015 5:46:08 PM | | | | | | | | | | + + + + + + + + | Specimen | + + | | + + + + + | Narrative | Performed At | + + + | [facility] | EXTERNAL LAB | + [...] EXTERNAL | | | | performed at [facility];[address] | K/uL | LAB | | | | [address];[place] | | | | | | [address] | | | | + + + + + -+ | Non- | 4.61Comment: Testing | 3.70 - 5.10 | EXTERNAL | | | Red Blood | performed at [facility];[address] | M/uL | LAB | | | Cells | [address];[place] | | | | | Counted | [address] | | | | + + + + + -+ | Hemoglobin | 13.4Comment: Testing | 11.3 - 15.5 | EXTERNAL | | | | performed at [facility];[address] | g/dL | LAB | | | | [address];[place] | | | | | | [address] | | | | + + + + + -+ | Hematocrit, | 40.4Comment: Testing | 34.0 - 46.0 % | EXTERNAL | | | POC | performed at [facility];[address] | | LAB | | | | [address];[place] | | | | | | [address] | | | | + + + + + -+ | MCV | 87.7Comment: Testing | 80.0 - 100.0 fl | EXTERNAL | | | | performed at [facility];[address] | | LAB | | | | [address];[place] | | | | | | [address] | | | | + + + + + -+ | MCH | 29.1Comment: Testing | 27.0 - 34.0 pg | EXTERNAL | | | | performed at [facility];[address] | | LAB | | | | [address];[place] | | | | | | [address] | | | | + + + + + -+ | MCHC | 33.2Comment: Testing | 32.0 - 35.5 | EXTERNAL | | | | performed at [facility];[address] | g/dL | LAB | | | | [address];[place] | | | | | | [address] | | | | + + + + + -+ | RDW-CV | 39.8Comment: Testing | 37 - 53 fl | EXTERNAL | | | | performed at [facility];[address] | | LAB | | | | [address];[place] | | | | | | [address] | | | | + + + + + -+ | Platelet | 287Comment: Testing | 150 - 400 K/uL | EXTERNAL | | | Count | performed at [facility];[address] | | LAB | | | Plasma | [address];[place] | | | | | | [address] | | | | + + + + + -+ | MPV | 7.7Comment: Testing | fl | EXTERNAL | | | | performed at [facility];[address] | | LAB | | | | [address];[place] | | | | | | [address] | | | | + + + + + -+ | Differentia | AUTOMATEDComment: | | EXTERNAL | | | l Type | Testing performed at | | LAB | | | | [facility];[address] | [address];[place] [address] | | | | + + + + + -+ | % Segmented | 45.19Comment: Testing | % | EXTERNAL | | | | performed at [facility];[address] | | LAB | | | Neutrophils | [address];[place] | | | | | | [address] | | | | + + + + + -+ | % | 44.63Comment: Testing | % | EXTERNAL | | | Lymphocytes | performed at [facility];[address] | | LAB | | | | [address];[place] | | | | | | [address] | | | | + + + + + -+ | % Monocytes | 7.42Comment: Testing | % | EXTERNAL | | | | performed at [facility];[address] | | LAB | | | | [address];[place] | | | | | | [address] | | | | + + + + + -+ | % | 1.58Comment: Testing | % | EXTERNAL | | | Eosinophils | performed at [facility];[address] | | LAB | | | | [address];[place] | | | | | | [address] | | | | + + + + + -+ | % Basophils | 1.18Comment: Testing | % | EXTERNAL | | | | performed at [facility];[address] | | LAB | | | | [address];[place] | | | | | | [address] | | | | + + + + + -+ | Absolute | 3.08Comment: Testing | 1.90 - 7.40 | EXTERNAL | | | Segmented | performed at [facility];[address] | K/uL | LAB | | | Neutrophils | [address];[place] | | | | | | [address] | | | | + + + + + -+ | Absolute | 3.04Comment: Testing | 1.00 - 3.90 | EXTERNAL | | | Lymphocytes | performed at [facility];[address] | K/uL | LAB | | | | [address];[place] | | | | | | [address] | | | | + + + + + -+ | Absolute | 0.51Comment: Testing | 0.00 - 0.80 | EXTERNAL | | | Monocytes | performed at [facility];[address] | K/uL | LAB | | | | [address];[place] | | | | | | [address] | | | | + + + + + -+ | Absolute | 0.11Comment: Testing | 0.00 - 0.50 | EXTERNAL | | | Eosinophils | performed at [facility];[address] | K/uL | LAB | | | | [address];[place] | | | | | | [address] | | | | + + + + + -+ | Absolute | 0.08Comment: Testing | 0.00 - 0.10 | EXTERNAL | | | Basophils | performed at [facility];[address] | K/uL | LAB | | | | [address];[place] | | | | | | [address] | | | | + + + + + -+ | Na | 139Comment: Testing | 135 - 143 | EXTERNAL | | | | performed at [facility];[address] | mmol/L | LAB | | | | [address];[place] | | | | | | [address] | | | | + + + + + -+ | K | 4.1Comment: SLT | 3.5 - 4.9 | EXTERNAL | | | | HEMOLYSISTesting | mmol/L | LAB | | | | performed at [facility];[address] | | | | | | [address];[place] | | | | | | [address] | | | | + + + + + -+ | Cl | 106Comment: Testing | 99 - 109 mmol/L | EXTERNAL | | | | performed at [facility];[address] | | LAB | | | | [address];[place] | | | | | | [address] | | | | + + + + + -+ | CO2 | 28Comment: Testing | 23 - 32 mmol/L | EXTERNAL | | | | performed at [facility];[address] | | LAB | | | | [address];[place] | | | | | | [address] | | | | + + + + + -+ | Anion Gap | 9Comment: Testing | 5 - 20 mmol/L | EXTERNAL | | | | performed at [facility];[address] | | LAB | | | | [address];[place] | | | | | | [address] | | | | + + + + + -+ | Glucose, | 78Comment: Testing | 65 - 99 mg/dL | EXTERNAL | | | Fasting | performed at [facility];[address] | | LAB | | | | [address];[place] | | | | | | [address] | | | | + + + + + -+ | BUN | 16Comment: Testing | 8 - 25 mg/dL | EXTERNAL | | | | performed at [facility];[address] | | LAB | | | | [address];[place] | | | | | | [address] | | | | + + + + + -+ | Creatinine | 0.82Comment: Testing | 0.50 - 1.00 | EXTERNAL | | | | performed at [facility];888 | mg/dL | LAB | | | | [address];[place] | | | | | | [address] | | | | + + + + + -+ | BUN/Creatin | 20Comment: Testing | | EXTERNAL | | | ine Ratio | performed at [facility];[address] | | LAB | | | | [address];[place] | | | | | | [address] | | | | + + + + + -+ | Calcium | 8.3 (L)Comment: Testing | 8.5 - 10.5 | EXTERNAL | | | | performed at [facility];888 | mg/dL | LAB | | | | [address];[place] | | | | | | [address] | | | | + + + + + -+ | Protein, | 7.3Comment: Testing | 6.3 - 8.2 g/dL | EXTERNAL | | | Total | performed at [facility];[address] | | LAB | | | | [address];[place] | | | | | | [address] | | | | + + + + + -+ | Albumin | 3.7Comment: Testing | 3.3 - 4.8 g/dL | EXTERNAL | | | | performed at [facility];[address] | | LAB | | | | [address];[place] | | | | | | [address] | | | | + + + + + -+ | Globulin | 3.6Comment: Testing | 1.3 - 4.9 g/dL | EXTERNAL | | | | performed at [facility];[address] | | LAB | | | | [address];[place] | | | | | | [address] | | | | + + + + + -+ | A/G Ratio | 1.0Comment: Testing | 1.0 - 2.4 | EXTERNAL | | | | performed at [facility];[address] | | LAB | | | | [address];[place] | | | | | | [address] | | | | + + + + + -+ | Bilirubin | 0.2Comment: Testing | 0.1 - 1.5 mg/dL | EXTERNAL | | | Total | performed at [facility];[address] | | LAB | | | | [address];[place] | | | | | | [address] | | | | + + + + + -+ | ALP, | 69Comment: Testing | 35 - 115 U/L | EXTERNAL | | | External | performed at [facility];[address] | | LAB | | | | [address];[place] | | | | | | [address] | | | | + + + + + -+ | AST | 22Comment: SLT | 10 - 45 U/L | EXTERNAL | | | | HEMOLYSISTesting | | LAB | | | | performed at [facility];[address] | | | | | | [address];[place] | | | | | | [address] | | | | + + + + + -+ | ALT | 31Comment: Testing | 10 - 65 U/L | EXTERNAL | | | | performed at [facility];[address] | | LAB | | | | [address];[place] | | | | | | [address] | | | | + + + [...] | | | | | | at [facility];[address] | | | | | | [address];[place] [address] | | | | + + + + + -+ | CK, Total | 128Comment: Testing | 30 - 240 U/L | EXTERNAL | | | | performed at [facility];[address] | | LAB | | | | [address];[place] | | | | | | [address] | | | | + + + [...] [place];[address] | | | | | | [address];[place] | | | | | | [address] | | | | + + + + + -+ | aPTT, | 27Comment: Testing | 23 - 32 seconds | EXTERNAL | | | Patient | performed at [facility];[address] | | LAB | | | | [address];[place] | | | | | | [address] | | | | + + + + + -+ | CK-MB | 3.2Comment: Testing | 0.5 - 3.6 ng/mL | EXTERNAL | | | | performed at [facility];[address] | | LAB | | | | [address];[place] | | | | | | [address] | | | | + + + [...] | | | Fingerstick | performed at [facility];[address] | | LAB | | | | [address];[place] | | | | | | [address] | | | | + + + [...]
--- OUTSIDE RECORDS SUMMARY | ~2020-05-30 | XMS | Encounter Summary ---
Demographics + + + | Address | [address] | | | [place] [address] | + + + | Home Phone [...] Team Providers + +------+ + | Care Linux Engineer Name | Role | Phone | [...] | | [address] | [place] [address] | | | | | [place] | [phone] | | | | | [address] | | | | | | [phone] | | | +--------+ + + + [...] [place] | | | | | | [address] | | | | | | | | +--------+---------+ + + + | 06/26/ | Office | Cardiology | Monserrat Weems | | | 2019 | Visit | | [address] | | | | | | [address] | | | | | | [place] [address] | | | | | | [phone] | | | | | | | | +--------+---------+ + + + documented as of this encounter Visit Diagnoses Not on filedocumented in this encounter"
--- OUTSIDE RECORDS SUMMARY | ~2020-05-30 | XMS | Encounter Summary ---
Demographics + + + | Address | [address] | | | [place] [address] | + + + | Home Phone [...] Providers + +------+ + | Care Expressive Therapist Name | Role | Phone | [...] + + | 11/29/ | Office | [facility] [place] | Sj Valdes MD | Scoliosis of lumbar | | 2015 | Visit | NEUROSURGERY [address] | [address] | spine (Primary Dx); | | | | [address] | [place] [address] | Foraminal stenosis | | | | [place] | [phone] | of lumbar region - | | | | [address] | | left L5-S1; DDD | | | | [phone] | | (degenerative disc | | | [...] might be different from t he original. Sj Valdes M.D. [address] [place] [address], [address] [place], [place] [address] FAX: NEUROSURGERY HISTORY AND PHYSICAL EXAMINATION CHIEF COMPLAINT: Chief Complaint Patient presents with Follow-up MRI f/u HISTORY OF PRESENT ILLNESS: The patient is a 69 y.o. female with the complaint of low back and leg pain. Patient was seen previously seen in our office and evaluated by Soni Rowland. Previously, she did not want to consider [...] deficits with short or senior living memory. MOTOR EXAM: (5 IS NORMAL) * Indicates pain limited MUSCLE/ MOVEMENT: RIGHT LEFT Deltoids 5 4+ Biceps 5 5 Triceps 5 5 Wrist Flexion 5 5 Wrist Extension 5 5 Median Intrinsics 5 4 Ulnar Intrinsics 5 4 Analytics Consultant Strength 5 4 Hip Flexion 5 4 [...] | | | | | | [place] | | | | | | [id number] | | | | | | | | +--------+---------+ + + + | 06/26/ | Office | Cardiology | Monserrat Weems | | | 2019 | Visit | | [address] | | | | | | [address] | | | | | | [place] [address] | | | | | | [phone] | | | | | | | [...]
--- OUTSIDE RECORDS SUMMARY | ~2020-05-30 | XMS | Encounter Summary ---
Demographics + + + | Address | [address] | | | [place] [address] | + + + | Home Phone [...] Providers + +------+ + | Care Nuclear Powerplant Mechanic Name | Role | Phone | + +------+ + | Wendi Aiken | PCP | | + +------+ + Encounter Details +--------+ + + + + | Date | Type | Department | Care Team | Description | +--------+ + + + + | 10/27/ | Hospital | [facility] | Conversion | Diagnosis unknown | | 2018 | Encounter | CONVERSION [address] | Transaction, | | | | | [address] | Provider Unknown | | | | | [place], [place] | | | | | | [address] | | | | | | [phone] | | | +--------+ + + + [...] [place] | | | | | | [address] | | | | | | | | +--------+---------+ + + + | 06/26/ | Office | Cardiology | Monserrat Weems | | | 2019 | Visit | | [address] | | | | | | [address] | | | | | | [place] [address] | | | | | | [phone] | | | | | | | [...]
--- OUTSIDE RECORDS SUMMARY | ~2020-05-30 | XMS | Encounter Summary ---
Demographics + + + | Address | [address] | | | [place] [address] | + + + | Home Phone [...] Providers + +------+ + | Care Chief Librarian Branch Or Department Name | Role | Phone | + +------+ + | Wendi Aiken | PCP | | + +------+ + Encounter Details +--------+ + + + + | Date | Type | Department | Care Team | Description | +--------+ + + + + | 04/06/ | Imaging | [facility] | David, | | | 2018 | Exam | [facility] | MD [address] | | | | | IMAGING [address] | | | | | [address] | [place] [address] | | | | | [place] [address] | | | | | | [phone] | | | +--------+ + + + [...] [place] | | | | | | [address] | | | | | | | | +--------+---------+ + + + | 06/26/ | Office | Cardiology | Monserrat Weems | | | 2019 | Visit | | [address] | | | | | | [address] | | | | | | [place] [address] | | | | | | [phone] | | | | | | | [...]
--- OUTSIDE RECORDS SUMMARY | ~2020-05-30 | XMS | Encounter Summary ---
Demographics + + + | Address | [address] | | | [place] [address] | + + + | Home Phone [...] Providers + +------+ + | Care Supervisor Spinning Name | Role | Phone | + [...] Required | Rehabilitatio | | Yaneli, | [place] | | | | n | radiculopath | PA-C [address] | [place], | | | | | y Chronic | [address], | [place] [address] | | | | | low back | [address] | Phone: | | | | | pain Facet | [place] | [phone] | | | | | arthritis of | [address] | Fax: | | | | | lumbar | Phone: | [phone] | | | | | region | [phone] | | | | | | [place] | Fax: | | | | | | stenosis of | [phone] | | | | | | lumbar [...] + + | 04/17/ | Office | [facility] | Bogdanowicz, | Left lumbar | | 2013 | Visit | PHYSIATRY [address] | [address]RI [address] | radiculopathy | | | | [address] | [address], [address] | (Primary Dx); | | | | [place] [facility], [place] | [place] [address] | Chronic low back | | | | [address] | [phone] | pain; Facet | | | | [phone] | | arthritis of lumbar | | [...] of the procedure you must provide a commercial collections driver to take you home. For all [...] me to refill this prescription as her [facility] care provider will not refill them [...] apparent deficits with short or mcfp memory. She has appropriate fund of knowledge [...] [facility] 3. I did discussed neuropathic pain [...] [place] | | | | | | [id number] | | | | | | | | +--------+---------+ + + + | 06/26/ | Office | Cardiology | Monserrat Weems | | | 2019 | Visit | | [address] | | | | | | [address] | | | | | | [place] [address] | | | | | | [phone] | | | | | | | [...] to the fluoroscopy suite for a | [facility] | | fluoroscopically-guided left L5-S1 transforaminal epidural [...] [address] | [place] | [phone] | | [facility] | | [address] | | | - IMAGING | | [...]
--- OUTSIDE RECORDS SUMMARY | ~2020-05-30 | XMS | Encounter Summary ---
Demographics + + + | Address | [address] | | | [place] [address] | + + + | Home Phone [...] Team Providers + +------+ + | Care Vocational Director Name | Role | Phone | + +------+ + | No, Physician | PCP | Unavailable | + +------+ + Encounter Details +--------+ + + + + | Date | Type | Department | Care Team | Description | +--------+ + + + + | 01/08/ | Hospital | [facility] | Shay Dietz | Lumbar radiculopathy | | 2013 | Encounter | MED CTR XRAY [address] | T, MD [address] | | | | | [place] | [address] [place], [place] | | | | | [place] [address] | [address] | | | | | [phone] | | | | | | | [address], [facility] | | | | | | [...] [place] | | | | | | [address] | | | | | | | | +--------+---------+ + + + | 06/26/ | Office | Cardiology | Monserrat Weems | | | 2019 | Visit | | [address] | | | | | | [address] | | | | | | [place] [address] | | | | | | [phone] | | | | | | | [...] 01/08/14 13:40 Transforaminal Epidural Steroid Injection | DAVID[address]CE | | Diagnosis: Lumbar radiculopathy ICD-9 Code 724.4 Ms. Sheikh | [facility] | | Joanne presents to the fluoroscopy suite for a [facility] | | fluoroscopically-guided left L5-S1 transforaminal [...] + | [address] | [address] | [place] | [phone] | | [facility] | | [address] | | | - IMAGING | | [...]
--- OUTSIDE RECORDS SUMMARY | ~2020-05-30 | XMS | Encounter Summary ---
Demographics + + + | Address | [address] | | | [place] [address] | + + + | Home Phone [...] Team Providers + +------+ + | Care Dispensing And Measuring Optician Name | Role | Phone | + +------+ + | Wendi Aiken | PCP | | + +------+ + Encounter Details +--------+ + + + + | Date | Type | Department | Care Team | Description | +--------+ + + + + | 05/21/ | Orders Only | [facility] | Provider, | | | 2018 | | SYSTEM GENERIC OP | MD [address] | | | | | CONVERSION [address] | [address]. | | | | | [address] [place], [place] | [place] [address] | | | | | [address] | | | | | | [phone] | | | +--------+ + + + [...] [place] | | | | | | [address] | | | | | | | | +--------+---------+ + + + | 06/26/ | Office | Cardiology | Monserrat Weems | | | 2019 | Visit | | [address] | | | | | | [address] | | | | | | [place] [address] | | | | | | [phone] | | | | | | | | +--------+---------+ + + + documented as of this encounter Visit Diagnoses Not on filedocumented in this encounter"
--- OUTSIDE RECORDS SUMMARY | ~2020-05-30 | XMS | Encounter Summary ---
Demographics + + + | Address | [address] | | | [place] [address] | + + + | Home Phone [...] Providers + +------+ + | Care Full Stack Software Engineer Name | Role | Phone [...] | [facility] | [address] | (Dr. Holbrook) | | | | Riddhi [address] [facility] [address] | | | | | [address] | [place], [place] | | | | | Riddhi, [facility] floor | [address] | | | | | [place], [place] | [phone] | | | | | [address] | | | | | | [phone] | | | +--------+ + + + [...]
--- OUTSIDE RECORDS SUMMARY | ~2020-05-30 | XMS | Encounter Summary ---
Demographics + + + | Address | [address] | | | [place] [address] | + + + | Home Phone [...] Team Providers + +------+ + | Care Shucker Name | Role | Phone | + [...] L5-S1 (Primary | | | | [place], [place] | [place] [address] | Dx); Left lumbar | | | | [address] | [phone] | radiculopathy; DDD | | | | [phone] | | (degenerative disc | | | [...] of the procedure you must provide a intermodal truck driver to take you home. For all procedur es it is recommended that someone else drive you home. documented in this encounter Progress Notes Spenser BRI Groves - 08/05/2014 11:26 AM PDTFormatting of this [...] no apparent deficits with short or intermediate memory. She has appropriate fund of knowledge [...] along with flexion/extension xray's perf ormed in [place] last week. I will request for these images to be transferred to her comp uter system. The patient is to follow up with Neurosurgery 09/10/14. I will ask them if hilda yesika can see her sooner. However if [...] [place] | | | | | | [id number] | | | | | | | | +--------+---------+ + + + | 06/26/ | Office | Cardiology | Monserrat Weems | | | 2019 | Visit | | [address] | | | | | | [address] | | | | | | [place] [address] | | | | | | [phone] | | | | | | | [...] + | [facility] | [address] | [place] | [phone] | | [facility] | | [address] | | | - IMAGING | | [...]
--- OUTSIDE RECORDS SUMMARY | ~2020-05-30 | XMS | Encounter Summary ---
Demographics + + + | Address | [address] | | | [place] [address] | + + + | Home Phone [...] | | 2016 | Encounter | at [facility] [address] | [address] | medical records from | | | | [facility] for | [address] [place], | [facility] in | | | | Health and Healing, | [place] [address] | [facility]berta [address] | | | | Building | [phone] | in [address] | | | | Floor [place], [place] | | Ant | | | | [address] | | | | | | [phone] | | | +--------+ + + + [...]
--- OUTSIDE RECORDS SUMMARY | ~2020-05-30 | XMS | Encounter Summary ---
Demographics + + + | Address | [address] | | | [place] [address] | + + + | Home Phone [...] Team Providers + +------+ + | Care Line Therapist Name | Role | Phone | [...] | | sciatica | [place] | [address] | | | | | Facet | [address] | Phone: | | | | | arthritis of | Phone: | [phone] | | | | | lumbar | [phone] | Fax: | | | | | region | Fax: | [phone] | | | | | [place] | [phone] | | | | | | stenosis [...] | Popeye, | | | | | Manager Completions / | Low back | Oxana Solorio, | Spenser, | | | | Physical | pain | ACCOUNT MANAGER RELIEF [address] | [address] | | | | Medicine and | Bilateral | [address] | [address] | | | | Rehabilitatio | leg pain | [place], | [address], [address] | | | | n | Bilateral | [place] [address] | [place] | | | | | hip pain | Phone: | [address] Phone: | | | | | low back | [phone] | [phone] | | | | | pain, | Fax: | Fax: | | | | | bilateral | [phone] | [phone] | | | | | leg pain and | | | | | | | bilat hip | | | | | | | pain, last | | | | | | | OV 08/05/14. | | | | | | | Oxana | | | | | | | Popeye, CROCHET BEADER | | | | | | | [...] + | 07/06/ | Office | [facility] | Spenser, | Bursitis, hip, right | | 2016 | Visit | [address]SIATRY [address] | [address] | (Primary Dx); | | | | [address] | [address] | Chronic right-sided | | | | [place] | [place] [address] | low back pain with | | | | [address] | [phone] | right-sided | | | | [phone] | | sciatica; Facet | | | [...] 07/06/2016 9:31 AM PDT1) Lumbar MRI in [facility] - you need to call us when [...] the procedure you must provide a driver salesman to take you home. For all procedur [...] and working more hours due to the [employer] up. 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 She has appropriate fund of [...] PT (multiple sessions over the years) and morning caregiver. Unfortunately she lola nues to have significant [...] has been ordered to be done at [facility]. 5. We will follow up once [...] | | | | | | [place] | | | | | | [address] | | | | | | | | +--------+---------+ + + + | 06/26/ | Office | Cardiology | Faustina Monserrat | | | 2020 | Visit | | [address] | | | | | | [address] | | | | | | [place] [address] | | | | | | [phone] | | | | | | | [...] Diagnosis: Lumbar Spondylosis ICD-10 Code M[address] | | Joanne presents to the fluoroscopy suite for | [facility] | | fluoroscopically-guided bilateral L5-S1 facet [...] + | [address] | [address] | [place], [place] | [phone] | | [facility] | | [address] | | | - IMAGING | | [...] PDT | | | | | ONCE, Dee 07/06/16 at 1000, For 1 | | | | | | | dose, Shake well. Not for IV | | | | | | | use., | | | | | | + + + +-------+------+ + +---+---+ | | | +---+---+ documented in this encounter
--- OUTSIDE RECORDS SUMMARY | ~2020-05-30 | XMS | Encounter Summary ---
Demographics + + + | Address | [address] | | | [place] [address] | + + + | Home Phone [...] Providers + +------+ + | Care C Winforms Developer Name | Role | Phone | [...] + + | 04/17/ | Telephone | [facility] | Nick Martinez, | Other (Back Brace) | | 2017 | | [address] | PA-C [address] | | | | | [address] | [address] [place] | | | | | [place], [place] | [place] [address] | | | | | [address] | [phone] | | | | | [phone] | | | +--------+ + + + [...] Miscellaneous Notes Telephone Encounter - Cheyenne Flores, Pharmaceutical Botanist - 04/17/2018 2:07 PM PDTCalled p atient to clarify that her brace will be provided as a part of PT, and that she should be fi tted for and provided with a brace DURING physical therapy. The patient expressed understand ing. I also advised the patient that her PT was authorized today and I would have it sent to [facility], but it may take a few days, so that she should wait to call them. The patient expresse d understanding and was grateful for the call. elephone Encounter - Randy, Christiana Gasca - 018 8:15 AM PDTPatient would like a call back to discuss back brace that was recommended fo r . She would like to know if order [...] [place] | | | | | | [id number] | | | | | | | | +--------+---------+ + + + | 06/26/ | Office | Cardiology | Monserrat Weems | | | 2019 | Visit | | [address] | | | | | | [address] | | | | | | [place] [address] | | | | | | [phone] | | | | | | | | +--------+---------+ + + + documented as of this encounter Visit Diagnoses Not on filedocumented in this encounter"
--- OUTSIDE RECORDS SUMMARY | ~2020-05-30 | XMS | Encounter Summary ---
Demographics + + + | Address | [address] | | | [place] [address] | + + + | Home Phone [...] Providers + +------+ + | Care Supervisor Cabinetmaker Name | Role | Phone | + [...] 2013 | | [address]AT[address] | MICROGRAPHICS SERVICES SUPERVISOR | (Primary Dx) | | | | [address] | | | | | | [place] | | | | | | [address] | | | | | | [phone] | | | +--------+ + + + [...] [place] | | | | | | [address] | | | | | | | | +--------+---------+ + + + | 06/26/ | Office | Cardiology | Monserrat Weems | | | 2019 | Visit | | [address] | | | | | | [address] | | | | | | [place] [address] | | | | | | [phone] | | | | | | | [...] 724.4 Ms. Sheikh | [facility] | | Joanne presents to the fluoroscopy suite for [facility] | | fluoroscopically-guided left L5-S1 transforaminal epidural [...] ST. | [address] | [place] | [phone] | | [facility] | | [address] | | | - IMAGING | | | | + + + + + documented in this encounter Visit Diagnoses + + | Diagnosis | + + | Lumbar radiculopathy - Primary Thoracic or lumbosacral neuritis or radiculitis, | | unspecified | + + documented in this encounter"
--- OUTSIDE RECORDS SUMMARY | ~2020-05-30 | XMS | Encounter Summary ---
Demographics + + + | Address | [address] | | | [place] [address] | + + + | Home Phone [...] Providers + +------+ + | Care Manager Paper Name | Role | Phone | + [...] | | | | | Juliana Schulte [place], | | | | | | [place] [address] | | | +--------+ + + + [...]
--- OUTSIDE RECORDS SUMMARY | ~2020-05-30 | XMS | Encounter Summary ---
Demographics + + + | Address | [address] | | | [place] [address] | + + + | Home Phone [...] Team Providers + +------+ + | Care Feed Adviser Name | Role | Phone | [...] | | | [address] [place] | [place] [address] | | | | | [place] [address] | | | | | | [phone] | | | +--------+ + + + [...] [place] | | | | | | [address] | | | | | | | | +--------+---------+ + + + | 06/26/ | Office | Cardiology | Monserrat Weems | | | 2019 | Visit | | [address] | | | | | | [address] | | | | | | [place] [address] | | | | | | [phone] | | | | | | | [...]
--- OUTSIDE RECORDS SUMMARY | ~2020-05-30 | XMS | Encounter Summary ---
Demographics + + + | Address | [address] | | | [place] [address] | + + + | Home Phone [...] +------+ + | Care Welding Machine Operator Gas Metal Arc Name | Role | Phone | + [...] 2013 | | [address] | CLIENT EXPERIENCE CONSULTANT | | | | | [address] | | | | | | [place] | | | | | | [address] | | | | | | [phone] | | | +--------+ + + + [...] Telephone Encounter - Emerita Morrow Master of Spiration - 12/17/2013 11:27 AM PSTPatient ca lled [...] [place] | | | | | | [address] | | | | | | | | +--------+---------+ + + + | 06/26/ | Office | Cardiology | Monserrat Weems | | | 2019 | Visit | | [address] | | | | | | [address] | | | | | | [place] [address] | | | | | | [phone] | | | | | | | | +--------+---------+ + + + documented as of this encounter Visit Diagnoses Not on filedocumented in this encounter"
--- OUTSIDE RECORDS SUMMARY | ~2020-05-30 | XMS | Encounter Summary ---
Demographics + + + | Address | [address] | | | [place] [address] | + + + | Home Phone [...] Team Providers + +------+ + | Care Radiosonde Specialist Name | Role | Phone | [...] + + | 02/17/ | Telephone | [facility] | Denys Sibley, | Imaging (MRI order) | | 2020 | | [facility] [place] | DO [address] | | | | | [address] | [place], [place] | | | | | [address] | [address] | | | | | [place], [place] | | | | | | [address] | | | | | | [phone] | | | +--------+ + + + [...] Miscellaneous Notes Telephone Encounter - Ewelina Farrar, Nursing Program Manager - 02/19/2020 11:52 AM Jose M SINGH faxed the order for the x-ray that Dr. Sibley ordered. There is no order for MRI. I fax ed it to [facility] at [phone]. I called Nathalia back and let a detailed message. elephone Encounter - Mai Polanco I - 02/18/2020 9:00 AM PDTCarol-POA, is calling regarding Imaging (MRI order) and would like a call back. Additional Call Details: Requesting to please send MRI order to [facility] in [facility]- since it is more convenient for patient. Call back with status at: [phone] If this is a symptom based call, was patient offered triage? Not Applicable If this is a symptom based call and you were unable to immediately transfer the call to a jose m franco group chief operator was caller made aware that if [...] [place] | | | | | | [address] | | | | | | | | +--------+---------+ + + + | 06/26/ | Office | Cardiology | Monserrat Weems | | | 2019 | Visit | | [address] | | | | | | [address] | | | | | | [place] [address] | | | | | | [phone] | | | | | | | | +--------+---------+ + + + documented as of this encounter Visit Diagnoses Not on filedocumented in this encounter"
--- OUTSIDE RECORDS SUMMARY | ~2020-05-30 | XMS | Encounter Summary ---
Demographics + + + | Address | [address] | | | [place] [address] | + + + | Home Phone [...] Providers + +------+ + | Care Skiver Hand Name | Role | Phone | [...] | | | [address] [place] | [place] [address] | | | | | [place] [address] | | | | | | [phone] | | | +--------+ + + + [...] [place] | | | | | | [address] | | | | | | | | +--------+---------+ + + + | 06/26/ | Office | Cardiology | Monserrat Weems | | | 2019 | Visit | | [address] | | | | | | [address] | | | | | | [place] [address] | | | | | | [phone] | | | | | | | [...]
--- OUTSIDE RECORDS SUMMARY | ~2020-05-30 | XMS | Encounter Summary ---
Demographics + + + | Address | [address] | | | [place] [address] | + + + | Home Phone [...] Team Providers + +------+ + | Care Steward/Stewardess Economy Class Name | Role | Phone | + [...] | | HOSPITAL EMERGENCY | MD Jaxson [address] | (Primary Dx); | | | | CENTER [address] | [facility] | Borderline | | 06/25/ | | [address] [place], [place] | [place] [address] | personality disorder | | 2017 | | [address] | [phone] | | | | | [phone] | | | | | | | Pelon Diaz, | | | | | | [address] | | | | | | [place] [address] | | | | | | [phone] | | | | | | | [...] as of this encounter Progress Notes Hannah Ron PharmD - 06/24/2018 10:06 AM PDTMedication History Completed Medication history was completed using: -medication list faxed from [facility] both in [place] Major discrepancies noted: Did not speak with patient, just verified medications with most recently fill lists from her pharmacies. Removed Ranitidine and Myrbetriq from med list as these have not been filled in the last 3 months. Please see LABORATORY TECHNOLOGY TEACHER med list for updated medication list. Electronically Signed by: Hannah Ron, PharmD 06/24/2018 10:06 documented in th is encounter ED Notes Pelon Diaz MD - 06/24/2018 11:29 AM [id number]: Pt reports that she is having an [...] meds ordered including when necessary clonazepam and Selma 10/325. Con tinue attempts for placement. Pelon Diaz MD 06/25/18 0826 aynes, Mendoza raymond MD - 06/23/2018 8:35 PM PDTFormatting of this note might be different from the [facility] Emergency Department Provider Note Name: Kori [...] be held in the emergency department until [facility] can place her in a psychiatric facility. [...] will be discharged in accordance with the community health worker [facility] safety plan. Fol low-up will be with her counselor in [facility]. Clinical Impression and Plan Final diagnoses: Suicide ideation Borderline personality disorder ED Prescriptions None Follow-up Information PEE Mabry In 1 day. Specialty: Physician Herbicide Service Sales Representative Why: For required follow-up of this ED visit. Contact information: [address] [place] [address], [address] [place] [address] Extended ED Note CC: Chief Complaint Patient presents with Suicidal Method of Arrival: police History obtained from: Police and Patient HPI: Kori Rubio is a 72 y.o. female who was escorted to the Emergency Departmen t by Police for a mental health evaluation. [...] behalf by Pranav Phan, a trained medical hesham smith. The creation of this document is based on the provider's statements to the medical sc pema. Parts of this note may have been created using [employer] which is a voice recognition software . [...] [place] | | | | | | [address] | | | | | | | | +--------+---------+ + + + | 06/26/ | Office | Cardiology | Monserrat Weems | | | 2020 | Visit | | [address] | | | | | | [address] | | | | | | [place] [address] | | | | | | [phone] | | | | | | | [...] L?MRN: | | | | | | [id number] | | | [id number] | | | ecurit | | | [...] | | | St. | | | [place] | | | y | | | [...] | | | St. | | | [place] | | | y H. | | [...] | | | St. | | | [place] | | | y H. | | [...] | | | St. | | | [place] | | | y H. | | [...] | | | St. | | | [place] | | | y H. | | [...] | | | St. | | | [place] | | | y H. | | [...] | | | St. | | | [place] | | | y H. | | [...] | | | St. | | | [place] | | | y | | | [...] | | | L | | | [employer] | | | , MD 2 | [...] + + | [facility] | [address] | [place] | [phone] | | HOSPITAL LABORATORY | | [address] | | + + + + + [...] + + | [facility] | [address] | [place] | [phone] | | HOSPITAL LABORATORY | | [address] | | + + + + + [...] | | HOSPITAL | | | | Antipyretic/Kxzjunryx27. | | LABORATORY | | | | [...] + + | [facility] | [address] | [place] | [phone] | | HOSPITAL LABORATORY | | [address] | | + + + + + [...] + + | [facility] | [address] | [place], [place] | [phone] | | HOSPITAL LABORATORY | | [address] | | + + + + + [...] | mL/min/1.73m2 | [facility] | | | [place] | RATE,ESTIMATED | | HOSPITAL | | | | mL/min/1.46y1Zslk than | | LABORATORY | | | [...] + + | [facility] | [address] | [place] | [phone] | | HOSPITAL LABORATORY | | [address] | | + + + + + [...] + + | [facility] | [address] | [place] | [phone] | | HOSPITAL LABORATORY | | [address] | | + + + + + [...] + + | [facility] | [address] | [place] | [phone] | | HOSPITAL LABORATORY | | [address] | | + + + + + [...] - 1.030 | [facility] | | | [place], | | | [facility] | | | [...] + + | [facility] | [address] | [place] | [phone] | | HOSPITAL LABORATORY | | [address] | | + + + + + [...] emergency medical use only. Not | [facility] | | intended for legal purposes. Chain of Custody not maintained. | HOSPITAL | | Confirmation of Positive results must be ordered by the attending | LABORATORY | | physician. Qrqf-cgz-fuuwtvr drugs may cross react with some methods. [...] + + | [facility] | [address] | [place] | [phone] | | HOSPITAL LABORATORY | | [address] | | + + + + + [...] 1 dose, ARIEL BOND: | | | markt override, | | + +---+ | | [...]
--- OUTSIDE RECORDS SUMMARY | ~2020-05-30 | XMS | Encounter Summary ---
Demographics + + + | Address | [address] | | | [place] [address] | + + + | Home Phone [...] Team Providers + +------+ + | Care Store Product Demonstrator Name | Role | Phone | + +------+ + PCP | Unavailable | + +------+ + Encounter Details +--------+ + + + + | Date | Type | Department | Care Team | Description | +--------+ + + + + | 02/22/ | Hospital | [facility] | Elie Craftjewel | | | 2006 - | Encounter | [facility] | MD Masha [address] | | | | | [address] ADULT [address] | | | 02/28/ | | [address] [place], [place] | [address] | | | 2005 | | [address] | | | | | | [phone] | Samantha Estes | | | | | | MD Jewel [address] | | | | | | [address] | | | | | | [place] [address] | | | | | | [...] [place] | | | | | | [address] | | | | | | | | +--------+---------+ + + + | 06/26/ | Office | Cardiology | Monserrat Weems | | | 2019 | Visit | | [address] | | | | | | [address] | | | | | | [place] [address] | | | | | | [phone] | | | | | | | | +--------+---------+ + + + documented as of this encounter Visit Diagnoses Not on filedocumented in this encounter"
--- OUTSIDE RECORDS SUMMARY | ~2020-05-30 | XMS | Encounter Summary ---
Demographics + + + | Address | [address] | | | [place] [address] | + + + | Home Phone [...] Team Providers + +------+ + | Care Piccolo Mechanic Name | Role | Phone | [...] | | | | | Juliana [place]te [place], | | | | | | [place] [address] | | | +--------+ + + + [...]
--- OUTSIDE RECORDS SUMMARY | ~2020-05-30 | XMS | Encounter Summary ---
Demographics + + + | Address | [address] | | | [place] [address] | + + + | Home Phone [...] Providers + +------+ + | Care Industrial Chemist Name | Role | Phone | [...] | [address] | [place], [place] | | | | | [place], [place] | [address] | | | | | [address] | | | | | | [phone] | | | +--------+ + + + [...] Telephone Encounter - Emerita Morrow Master of Arts - 01/01/2014 10:19 AM PSTPatient sc heduled by Chantale Gant RN for injection with Dr. Dietz this 01/03/2014.El ectronically signed by Emerita Morrow Master of Graematter at 01/01/2014 10:21 AM PSTTelephone Encounter - [...] provider and continue to work with her [facility] providers closely. At some point we may [...] [place] | | | | | | [address] | | | | | | | | +--------+---------+ + + + | 06/26/ | Office | Cardiology | Monserrat Weems | | | 2019 | Visit | | [address] | | | | | | [address] | | | | | | [place] [address] | | | | | | [phone] | | | | | | | | +--------+---------+ + + + documented as of this encounter Visit Diagnoses Not on filedocumented in this encounter"
--- OUTSIDE RECORDS SUMMARY | ~2020-05-30 | XMS | Encounter Summary ---
Demographics + + + | Address | [address] | | | [place] [address] | + + + | Home Phone [...] Team Providers + +------+ + | Care Fountain Server Name | Role | Phone | [...] | Chest | Referring | [place] [address] | | | | | pressure | Provider Per | [address] | | | | | Procedures | Patient NO | [address] | | | | | DC NEW | REFERRING | [place], [place] | | | | | PATIENT | PROVIDER PER | [address] Phone: | | | | | LEVEL V DC | PT | [phone] | | | | | OFFICE/OUTPT | | Fax: | | | | | | | [phone] | | | | | VISIT,EST,LE | [...] | | 2016 | Visit | at [facility] [address] | [address] | unspecified type | | | | Ave Center for | [address] [facility] | (Primary Dx); | | | | Health and Healing, | [place] [address] | Palpitations | | | | [facility] | [phone] | | | | | Floor [place], [place] | | | | | | [address] | | | | | | [phone] | | | +--------+---------+ + + + [...] per Dr. Fuchs's note. Tiago Blake DO Risk Compliance Manager Clinical flat clothier/ Division of Cardiovascular Medicine Airam Nicole Md - 03/09/2016 3:27 PM PDT [facility] General Cardiology New Patient Evaluation [...] then transf erred to [facility] in [facility] where she was put into the [...] every couple of weeks. She comes to [facility] today because she wants a second opinion [...] LIPID LAB | [address] | [place], [place] | | | | [place] | [address] | | + + + + + documented in this encounter Visit Diagnoses + + | Diagnosis | + + | Chest pain, unspecified type - Primary | + + | Palpitations | + + documented in this encounter
--- OUTSIDE RECORDS SUMMARY | ~2020-05-30 | XMS | Encounter Summary ---
Demographics + + + | Address | [address] | | | [place] [address] | + + + | Home Phone [...] Team Providers + +------+ + | Care Broom Handle Dipper Name | Role | Phone | + +------+ + | Wendi Aiken | PCP | | + +------+ + Reason for Visit + +--------+ + | Reason | Onset | Comments | | | Date | | + +--------+ + | Appointment | 06/14/ | Reschedule | | | 2017 | | + +--------+ + Encounter Details +--------+ + + + + | Date | Type | Department | Care Team | Description | +--------+ + + + + | 06/14/ | Telephone | [facility] [place] | Sj Valdes MD | Appointment | | 2016 | | NEUROSURGERY [address] | [address] | (Reschedule) | | | | [address] [facility] [address] | [place] [address] | | | | | [place] | [phone] | | | | | [address] | | | | | | [phone] | | | +--------+ + + + [...] | | | | | | [place] | | | | | | [address] | | | | | | | | +--------+---------+ + + + | 06/26/ | Office | Cardiology | Monserrat Weems | | | 2019 | Visit | | [address] | | | | | | [address] | | | | | | [place] [address] | | | | | | [phone] | | | | | | | | +--------+---------+ + + + documented as of this encounter Visit Diagnoses Not on filedocumented in this encounter"
--- OUTSIDE RECORDS SUMMARY | ~2020-05-30 | XMS | Encounter Summary ---
Demographics + + + | Address | [address] | | | [place] [address] | + + + | Home Phone [...] Team Providers + +------+ + | Care Statement Clerks Manager Name | Role | Phone | [...] | Lumbar | [place], | [address] | | | | | spondylosis | Shay Mukherjee MD | [place], | | | | | Right hip | [address] | [place] | | | | | pain | [place] | [address] | | | | | Procedures | [place], [place] | Phone: | | | | | [place] | [address] | [phone] | | | | | DX/THER AGNT | Phone: | Fax: | | | | | PAR[place]ERT | [phone] | [phone] | | | | | FACET JOINT, | Fax: | | | | | | LUMBAR/SAC, | [phone] | | | | | | 1ST LEVEL | | | | | | | [place] | | | | | | | TRIAMCINOLON | | | | | | | E ACET INJ | | | | | | | NOS, 10 MG | | | | | | | [place] | | | | | | [...] + + | 02/08/ | Hospital | [facility] | Sp[place], | Trochanteric | | 2017 | Encounter | MED CTR XRAY [address] | [address] | bursitis of right | | | | [address] [place] | [facility] [address] | hip (Primary Dx); | | | | [place] [address] | [place] [address] | Chronic bilateral | | | | [phone] | [phone] | low back pain with | | | | | | right-sided | | | | | Cd Technician, [facility] | sciatica; Facet | | | | [...] [place] | | | | | | [address] | | | | | | | | +--------+---------+ + + + | 06/26/ | Office | Cardiology | Monserrat Weems | | | 2019 | Visit | | [address] | | | | | | [address] | | | | | | [place] [address] | | | | | | [phone] | | | | | | | [...] Trochanteric Bursitis ICD-10 Code M47.816 and ICD-10 [facility] | | Harshal Rubio presents [...] ST. | [address] | [place] | [phone] | | [facility] | | [address] | | | - IMAGING | | [...]
--- OUTSIDE RECORDS SUMMARY | ~2020-05-30 | XMS | Encounter Summary ---
Demographics + + + | Address | [address] | | | [place] [address] | + + + | Home Phone [...] Team Providers + +------+ + | Care Cogeneration Technician Name | Role | Phone | [...] | | | | [place] | [place] [id number] | [address] | | | | | Lumbar | Phone: | Phone: | | | | | radiculopath | [phone] | [phone] | | | | | y | Fax: | Fax: | | | | | Procedures | [phone] | [phone] | | | | | HIM 04/17/18 | | | +--------+ + + + + + Encounter Details +--------+ + + + + | Date | Type | Department | Care Team | Description | +--------+ + + + + | 04/12/ | Orders Only | [facility] [place] | JuanBridgette kerry, | Closed compression | | 2018 | | PHYSIATRY [address] | PA-C [address] | fracture of fifth | | | | [address] | [address] [place] | lumbar vertebra, | | | | [place], [place] | [place] [address] | sequela (Primary | | | | [address] | [phone] | Dx); Lumbar | | | | [phone] | | radiculopathy | +--------+ + + [...] [place] | | | | | | [address] | | | | | | | | +--------+---------+ + + + | 06/26/ | Office | Cardiology | FaustinaMonserrat | | | 2019 | Visit | | [address] | | | | | | [address] | | | | | | [place] [address] | | | | | | [phone] | | | | | | | | +--------+---------+ + + + + + +--------+ + + | Name | Type | Priori | Associated Diagnoses | Order Schedule | | | | ty | | | + + +--------+ + + | AMB REFERRAL TO [facility] | Outpatient | Routin | Closed [...]
--- OUTSIDE RECORDS SUMMARY | ~2020-05-30 | XMS | Encounter Summary ---
Demographics + + + | Address | [address] | | | [place] [address] | + + + | Home Phone [...] Providers + +------+ + | Care Grain Trader Name | Role | Phone | + +------+ + | Wendi Aiken | PCP | | + +------+ + Encounter Details +--------+ + + + + | Date | Type | Department | Care Team | Description | +--------+ + + + + | 05/10/ | Imaging | [facility] | David, | | | 2018 | Exam | MED CTR EXTERNAL | MD [address] | | | | | IMAGING [address] | [address] | | | | | [address] [place] | [place] [address] | | | | | [place] [address] | | | | | | [phone] | | | +--------+ + + + [...] [place] | | | | | | [address] | | | | | | | | +--------+---------+ + + + | 06/26/ | Office | Cardiology | Monserrat Weems | | | 2019 | Visit | | [address] | | | | | | [address] | | | | | | [place] [address] | | | | | | [phone] | | | | | | | [...]
--- OUTSIDE RECORDS SUMMARY | ~2020-05-30 | XMS | Encounter Summary ---
Demographics + + + | Address | [address] | | | [place] [address] | + + + | Home Phone [...] Team Providers + +------+ + | Care Snack Steward Name | Role | Phone | + +------+ + PCP | Unavailable | + +------+ + Encounter Details +--------+ + + + + | Date | Type | Department | Care Team | Description | +--------+ + + + + | 07/31/ | Hospital | [facility] | Raul Baca | | | 2005 - | Encounter | HEART MED CTR BEH | MD Jorge [address] | | | | | MARCY ADULT [address] | [facility], | | | 08/07/ | | 8th [place], [place] | [place] [address] | | | 2004 | | [address] | [phone] | | | | | [phone] | | | +--------+ + + + [...] type 2. She was admitted to the [facility] for worsening [...] currently fo llows with Dr. Pham in [place]. She has tried multiple antidepressants in the [...] ??, one p.o. q.d. MCINTOSHDAMION FLAQUITA Suarez [id number] 08/07/05 PSYCHOLOGICAL REPORT HISTORY & PHYSICAL Rep [id number] 004 E-Sign: B [facility] THIS REPORT IS CONFIDENTIAL AND NOT TO BE RELEASED WITHOUT PROPER AUTHORIZATION. [facility] 10. Aspirin 81 mg p.o. q.d. 11. Calcium citrate with vitamin D, one p.o. q.d. FAMILY HISTORY: The patient reports that she has several relatives with alcohol abuse pro blems. Otherwise, no psychiatric conditions noted. SOCIAL HISTORY: The patient was born and raised in [place] and spent some time in [place]. Her highest level of eduction was high school. The patient was four years ago. S he lives alone in her own home. 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 She receives [employer] and [employer]. ASSETS: The patient is still partially gainfully [...] She appears to have a good gen revillol fund of knowledge. LABORATORY DATA: Complete blood count mostly within normal limits. Electrolytes are pendi ng. DIAGNOSTIC FORMULATION: AXIS I: Bipolar affective disorder, type 2, with depressive symptoms. History of alcohol abuse. Rule out depression, not otherwise specified. AXIS II: Deferred. AXIS Asthma. III: Hypercholesterolemia. CRD. Status post tubal ligation. AXIS IV: Financial problems. AXIS V: GAF 45. DAMION MCINTOSH FLAQUITA Suarez [id number] 08/07/05 PSYCHOLOGICAL REPORT HISTORY & PHYSICAL Rep 1002-0 004 E-Sign: B [facility] THIS REPORT IS CONFIDENTIAL AND NOT TO BE RELEASED WITHOUT PROPER AUTHORIZATION. [facility] ASSESSMENT: Kori is a 60-year-old, female with [...] 7 days. Raul Baum MD P JHOANA/ricardo #[id number] cc: Raul quezada MD Digitally authenticated 06/26/08 4672 Rual Baum MD DAMION MCINTOSH [id number] 08/07/05 PSYCHOLOGICAL REPORT HISTORY & PHYSICAL Rep [id number] 004 E-Sign: B [facility] THIS REPORT IS CONFIDENTIAL AND NOT TO [...] [place] | | | | | | [address] | | | | | | | | +--------+---------+ + + + | 06/26/ | Office | Cardiology | Monserrat Weems | | | 2019 | Visit | | [address] | | | | | | [address] | | | | | | [place] [address] | | | | | | [phone] | | | | | | | | +--------+---------+ + + + documented as of this encounter Visit Diagnoses Not on filedocumented in this encounter
--- OUTSIDE RECORDS SUMMARY | ~2020-05-30 | XMS | Encounter Summary ---
Demographics + + + | Address | [address] | | | [place] [address] | + + + | Home Phone [...] Team Providers + +------+ + | Care Plastics Scientist Name | Role | Phone | [...] | at [facility] [address] | [address] | (follow up BPs) | | | | [facility] | [address] [place], | | | | | Health and Healing, | [place] [address] | | | | | Building 1 | [phone] | | | | | Floor [place], [place] | | | | | | [address] | | | | | | [phone] | | | +--------+ + + + [...]
--- OUTSIDE RECORDS SUMMARY | ~2020-05-30 | XMS | Encounter Summary ---
Demographics + + + | Address | [address] | | | [place] [address] | + + + | Home Phone [...] Team Providers + +------+ + | Care Nursing Care Attendant Name | Role | Phone [...] + + | 10/18/ | Telephone | [facility] | Shay Dietz | Other | | 2012 | | PHYSIATRY [address] | TMD [address] | | | | | [address] | [address] [place] | | | | | [place] | [address] | | | | | [address] | | | | | | [phone] | | | +--------+ + + + [...] PM PSTReceived phone call from jose m omreno stating she is having a reaction from [...] | | | | | | [place] | | | | | | [address] | | | | | | | | +--------+---------+ + + + | 06/26/ | Office | Cardiology | Monserrat Weems | | | 2019 | Visit | | [address] | | | | | | [address] | | | | | | [place] [address] | | | | | | [phone] | | | | | | | | +--------+---------+ + + + documented as of this encounter Visit Diagnoses Not on filedocumented in this encounter"
--- OUTSIDE RECORDS SUMMARY | ~2020-05-30 | XMS | Encounter Summary ---
Demographics + + + | Address | [address] | | | [place] [address] | + + + | Home Phone [...] Providers + +------+ + | Care Campaign Marketing Specialist Name | Role | Phone [...] 2016 | Encounter | at [facility] [address] | [address] | [place] | | | | [facility] for | [address] [place], | | | | | Health and Healing, | [place] [address] | | | | | [facility] | [phone] | | | | | Floor [place], [place] | | | | | | [address] | | | | | | [phone] | | | +--------+ + + + [...]
--- OUTSIDE RECORDS SUMMARY | ~2020-05-30 | XMS | Encounter Summary ---
Demographics + + + | Address | [address] | | | [place] [address] | + + + | Home Phone [...] Team Providers + +------+ + | Care Entomology Professor Name | Role | Phone | [...] | Cervical | Darrin | [address] | | | | | radiculopath | [address] | [place], | | | | | y | [address] | [place] | | | | | Myelopathy | AVE | [address] | | | | | (HCC) | [place], [place] | Phone: | | | | | Procedures | [address] | [phone] | | | | | MRI Cervical | Phone: | Fax: | | | | | Spine wo | [phone] | [phone] | | | | | Contrast | Fax: | | | | | | | [phone] | | +--------+--------+ + + + + [...] | region | [address], | [place], | | | | | Chronic low | [address] | [place] [address] | | | | | back pain | [place] | Phone: | | | | | Facet | [address] | [phone] | | | | | arthritis of | Phone: | Fax: | | | | | lumbar | [phone] | [phone] | | | | | region | Fax: | | | | | | Scoliosis of | [phone] | | | | | | lumbar | | | | | | | spine Acute | | | | | | | renal | | | | | | | failure | | | | | | | ([facility]) | | | | | | | [...] + + | 07/26/ | Office | [facility] | Darrin Hoyos | Foraminal stenosis | | 2013 | Visit | NEUROSURGERY [address] | [address] | of lumbar region - | | | | [address] | [address] [place], [place] | left L5-S1 (Primary | | | | [place], [place] | [address] | Dx); Scoliosis of | | | | [address] | | lumbar spine; Left | | | | [phone] | | lumbar | | | | [...] t from the original. PEE Vang [address] [facility] [address] [place], [place] [id number] FAX: NEUROSURGERY HISTORY AND PHYSICAL EXAMINATION CHIEF [...] ently a also seen a surgeon in [facility] he stated she did not need to have surgery pawel dave to her report. 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 CRANIAL NERVES: II: Acuity is intact. [...] 5 4 Ulnar Intrinsics 5 4 Manager Rehab Strength 5 4 Hip Flexion 5 4 [...] today, and I greatly appreciate the r bayronerral. 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
--- OUTSIDE RECORDS SUMMARY | ~2020-05-30 | XMS | Encounter Summary ---
Demographics + + + | Address | [address] | | | [place] [address] | + + + | Home Phone [...] Providers + +------+ + | Care Process Control Specialist Name | Role | Phone | [...] | | | Diagnoses | Laraiso, | Sonja, | | | | | Intractable | Denys Wallis DO | Alfredo DO | | | | | back pain | [address] | [address] | | | | | Closed | [address] | [facility], | | | | | compression | [place], | [place] [address] | | | | | fracture of | [place] [address] | Phone: | | | | | fifth lumbar | Phone: | [phone] | | | | | vertebra | [phone] | Fax: | | | | | sequela | Fax: | [phone] | | | | | Degenerative | [phone] | | | | | | lumbar [...] + + | 09/18/ | Office | [facility] | Alfredo Casillas, DO | S/P insertion of | | 2019 | Visit | [facility] | [address] | spinal cord | | | | [address] | [place] [address] | stimulator (Primary | | | | [address] [place], | [phone] | Dx); Spinal stenosis | | | | [place] [address] | | of lumbosacral | | | | [phone] | | region; Lumbar | | | [...] Casillas DO - 09/18/2019 9:10 AM PST [facility]: Interventional Pain Management 09/18/2019 Kori Caputo Andreawtjanene 1945 Chief Complaint Patient presents with Follow-up [...] (HCC) 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 09/17/19 10/17/19 Yes Denys G Belenaiso, DO levothyroxine (SYNTHROID) 100 mcg tablet Take [...] level: Not on file Occupational History Occupation: [email or web address] Social Needs Financial resource strain: Not on [...] did refer her to an orthopedist in [place] where she randal es; so, we will [...] 09/18/2019 This document has been prepared with Visual Pro 360 voice recognition system. The possibility of "s ound alike" balloon artist errors, and additions, or deletions may occur. [...] | | | | | | [address] | | | | | | [place] [address] | | | | | | [phone] | | | | | | | [...]
--- OUTSIDE RECORDS SUMMARY | ~2020-05-30 | XMS | Encounter Summary ---
Demographics + + + | Address | [address] | | | [place] [address] | + + + | Home Phone [...] Providers + +------+ + | Care Junior Accountant Bookkeeper Name | Role | Phone | [...] 2016 | Encounter | at [facility] [address] | [address] | havea problem with | | | | Ave Center for | [address] [place], | my heart. | | | | Health [place] Healing, | [place] [address] | | | | | Building | [phone] | | | | | Floor [place], [place] | | | | | | [address] | | | | | | [phone] | | | +--------+ + + + [...]
--- OUTSIDE RECORDS SUMMARY | ~2020-05-30 | XMS | Encounter Summary ---
Demographics + + + | Address | [address] | | | [place] [address] | + + + | Home Phone [...] Providers + +------+ + | Care Junior Financial Analyst Name | Role | Phone | + +------+ + PCP | Unavailable | + +------+ + Encounter Details +--------+ + + + + | Date | Type | Department | Care Team | Description | +--------+ + + + + | 06/26/ | Respiratory | | Other, Faculty | | | 2006 | Therapy | | [phone] | | +--------+ + + + + [...] Hassan, | | | | | | PREDICTIVE MAINTENANCE SPECIALIST | | | | + + + [...] | + + + + + | [facility]ON[facility] | [address] | [place], [place] | | | DIAGNOSTICS - | [place] | [address] | | | PULMONARY FUNCTION | | | | + + + + + documented in this encounter Visit Diagnoses Not on filedocumented in this encounter"
--- OUTSIDE RECORDS SUMMARY | ~2020-05-30 | XMS | Encounter Summary ---
Demographics + + + | Address | [address] | | | [place] [address] | + + + | Home Phone [...] Team Providers + +------+ + | Care Intravenous Therapy Nurse Name | Role | Phone | + +------+ + PCP | Unavailable | + +------+ + Encounter Details +--------+ + + + + | Date | Type | Department | Care Team | Description | +--------+ + + + + | 08/31/ | [facility] | [facility] | | | | 2010 | Encounter | MED CTR LABORATORY | | | | | | [address] | | | | | | [place] | | | | | | [address] | | | | | | [phone] | | | +--------+ + + + [...] [place] | | | | | | [address] | | | | | | | | +--------+---------+ + + + | 06/26/ | Office | Cardiology | Isai Weems | | | 2019 | Visit | | [address] | | | | | | [address] | | | | | | [place] [address] | | | | | | [phone] | | | | | | | [...] 50.3Comment: Testing | 11.0 - 306.9 | GLADIS | | | | performed on the [...] + | [facility] | [address] | [place] | [phone] | | [facility] | | [address] | | | - LABORATORY | | | | + + + + + | [facility] | [address] | [place] | | | [facility] | | [address] | | | - LABORATORY | | | | + + + + + documented in this encounter Visit Diagnoses Not on filedocumented in this encounter"
[~2020-05-30 16:14] MED LIST changes: +ELIQUIS5 MG PO; +FLUTICASONE PRO16 GM NAS; +LIDOCAINE-PRILO30 GM TOP; +PRAMIPEXOLE DI0.5 MG PO; +TOPROL XL25 MG PO; +WARFARIN SODIUM5 MG PO
--- OUTSIDE RECORDS SUMMARY | 2020-05-30 16:16 | XMS ---
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 Care History Medical/Surgical 09/25/2019 [facility] Patient aware of PCP appt. on 10/17/2019 and of the walk in clinic, but stated she used ED because she has respiratory issues with fever and was too weak to walk. 08/08/2019 [facility] - PATIENT HAS AN APT WITH PCP DR ONEILL ON 10/17/19 02/06/2019 [facility] - Patient is currently established with [facility]. If patient is seen in the ED during business hours. Please contact CHWs at [facility]. Care Recommendation: This patient has [...] providing care. E.D. VISIT COUNT (12 MO.) LIZZETTE Enrique TOTAL 7 NOTE: Visits indicate total known visits. ED/UCC VISIT TRACKING (12 MO.) 05/30/2020 16:14 [facility] [place] TYPE: Emergency COMPLAINT: - FISH HOOK IN TOE 03/05/2020 16:33 [facility] [place] TYPE: Emergency COMPLAINT: - SYNCOPAL EPISODE DIAGNOSES: - Allergy status to other drugs, medicaments and biological sub - Syncope and collapse - MCC (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 of inhaled steroids - Other longwall shearer operator (current) 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 - Chronic obstructive pulmonary disease, unspecified - Major depressive disorder, single episode, unspecified - Type 2 diabetes mellitus without complications - superintendent container terminal (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 of 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 10/10/2019 18:43 [facility] [place] TYPE: Emergency COMPLAINT: - ELEVATED HEART RATE DIAGNOSES: - Major depressive disorder, single episode, unspecified - Chest pain, unspecified - Chronic obstructive pulmonary disease, unspecified - Other longwall shearer operator (current) 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 - Type 2 diabetes mellitus without complications - Allergy status to other drugs, medicaments and biological sub 09/28/2019 11:50 [facility] [place] TYPE: Emergency COMPLAINT: - CHEST PAIN 09/24/2019 15:43 [facility] [place] TYPE: Emergency COMPLAINT: - NAUSEA, VOMITING, DIARRHEA DIAGNOSES: - Other intermediate (current) 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 - Bipolar disorder, unspecified - Nausea with vomiting, unspecified - Chronic obstructive pulmonary disease, unspecified - Urinary tract infection, site not specified - MCC (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 of systemic steroids - superintendent container terminal (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 of opiate analgesic - Diarrhea, unspecified - Type 2 diabetes mellitus without complications - Allergy status to other drugs, medicaments and biological sub 08/09/2019 11:06 [facility] [place] TYPE: Emergency COMPLAINT: - POST OP PROBLEM DIAGNOSES: - MCC (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 of opiate analgesic - Chronic obstructive pulmonary disease, unspecified - Allergy status to other drugs, medicaments and biological sub - Type 2 diabetes mellitus without complications - Low back pain - Major depressive disorder, single episode, unspecified - Other chronic pain - superintendent container terminal (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 of systemic steroids - Other acute postprocedural pain - Other longwall shearer operator (current) 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 08/07/2019 22:09 [facility] [place] TYPE: Emergency COMPLAINT: - BACK PAIN DIAGNOSES: - Other longwall shearer operator (current) 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 - Encounter for change or removal of surgical wound dressing - Allergy status to other drugs, medicaments and biological sub - Low back pain - Type 2 diabetes mellitus without complications INPATIENT VISIT TRACKING (12 MO.) 09/28/2019 14:01 [facility] [place] TYPE: Medical Surgical COMPLAINT: - PNEUMONIA DIAGNOSES: - Hypo-osmolality and hyponatremia - Other specified anxiety disorders - Hypothyroidism, unspecified - Chronic pain syndrome - Hypovolemia - Low back pain - Other intermediate (current) 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 - Paroxysmal atrial fibrillation - Other psychoactive substance dependence, uncomplicated - Other psychoactive substance dependence, uncomplicated - Low back pain - Allergy status to other drugs, medicaments and biological sub - Other intermediate (current) 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 - Pneumonia due to [...] obstructive pulmonary disease with acute lower respir [email or web address]
[2020-05-30] MEDS ORDERED: HYDROCODON-ACE1 EAC8 PO (17:08)
== END 2020-05-30 17:23 | disposition home or self-care (01) ==
LOC: ED 16:14
DX: S90.451A Superficial foreign body, right great toe, initial encounter (principal)

== ENCOUNTER 2020-08-10 14:32 | Emergency (ER) | payer MEDICARE, OTHER ==
[~2020-08-10] VITALS: Ht 154.9 cm; Wt 51.7 kg
--- OUTSIDE RECORDS SUMMARY | ~2020-08-10 | XMS | Encounter Summary ---
Demographics + + + | Address | [address] | | | [place] [address] | + + + | Home Phone | | + + + | Preferred Language | Unknown | + + + | Marital Status | | + + + | Temple Affiliation | 1013 | + + + | Race | White | + + + | Ethnic Group | Not or | + + + Author + + + | Author | [facility] | | | and [place] | + + + | Organization | [facility] | | | and [place] | + + + | Address | Unknown | + + + | Phone | Unavailable | + + + Support + + +---------+ + | Name | Relationship | Address | Phone | + + +---------+ + | Giuseppe Bernarda | ECON | Unknown | | + + +---------+ + | Nathalia Koes | ECON | Unknown | | + + +---------+ + Care Team Providers + +------+ + | Care Horticulture Professor Name | Role | Phone | + +------+ + | Romy De La Paz MD | PCP | | + +------+ + Reason for Visit + + + | Reason | Comments | + + + | Hip Pain | Right hip | + + + Evaluate & Treat (Routine) + +--------+ + + + + | Status | Reason | Specialty | Diagnoses / | Referred By | Referred To | | | | | Procedures | Contact | Contact | + +--------+ + + + + | Authorized | | Pain Medicine | Diagnoses | Motaghi, | Motaghi, | | | | | RIGHT HIP | Alfredo, DO | Alfredo, DO | | | | | | [address] | [address] | | | | [address] | [place], | | | | | | [place], [place] | [place] [address] | | | | | | [address] | Phone: | | | | | | Phone: | [phone] | | | | | | [phone] | Fax: | | | | | | Fax: | [phone] | | | | | | [phone] | | + +--------+ + + + + Encounter Details +--------+---------+ + + + | Date | Type | Department | Care Team | Description | +--------+---------+ + + + | 07/08/ | Office | [facility] | Alfredo Casillas DO | Spinal stenosis of | | 2019 | Visit | [facility] | [address] | lumbosacral region | | | | [address] | [place] [address] | (Primary Dx); Lumbar | | | | [address] [place], | [phone] | region somatic | | | | [place] [address] | | dysfunction; | | | | [phone] | | Degenerative lumbar | | | | | | spinal stenosis; | | | | | | Encounter for | | | | | | long-term use of | | | | | | opiate analgesic | +--------+---------+ + + + Social History + +-------+ +--------+------+ | Tobacco Use | Types | Packs/Day | Years | Date | | | | | Used | | + +-------+ +--------+------+ | Never Smoker | | | | | + +-------+ +--------+------+ + +---+---+---+ | Smokeless Tobacco: | | | | | Never Used | | | | + +---+---+---+ + + | Comments: exposed to 2nd smoke from father growing up , | + + + + +---------+ + | Alcohol Use [...] + + + + | Weight | 52.8 kg (116 lb 6.4 | 07/08/2020 1:52 PM | | | | oz) | PDT | | + + + + + | Height | 154.9 cm (5' 1") | 07/08/2020 1:52 PM | | | | | PDT | | + + + + + | Body Mass Index | 21.99 | 07/08/2020 1:52 PM | | | | | PDT | | + + + + + documented in this encounter Progress Notes Alfredo Casillas, - 07/08/2020 1:50 PM PDT [facility]: Interventional Pain Management 07/08/2020 Kori Caputo [place] 1945 Chief Complaint Patient presents with Hip Pain Right hip HISTORY OF PRESENT ILLNESS Hip Pain The incident occurred more than 1 week ago. The pain is present in the right hip. The quali ty of the pain is described as aching and shooting. The pain is at a severity of 6/10. The p ain is moderate. Pertinent negatives include no numbness. She has tried heat for the symptom s. The treatment provided mild relief. REVIEW OF SYSTEMS Review of Systems Constitutional: Positive for activity change. Negative for appetite change, fatigue and fev er. HENT: Negative for congestion, trouble swallowing and voice change. Eyes: Negative for photophobia, discharge and visual disturbance. Respiratory: Negative for apnea, cough, shortness of breath and wheezing. Cardiovascular: Negative for chest pain, palpitations and leg swelling. Gastrointestinal: Negative for abdominal pain, diarrhea, nausea and vomiting. Endocrine: Negative for cold intolerance, heat intolerance and polyuria. Musculoskeletal: Positive for arthralgias, back pain and gait problem. Negative for joint s welling, neck pain and neck stiffness. Skin: Negative for color change and rash. Allergic/Immunologic: Negative for environmental allergies and food allergies. Neurological: Negative for seizures, weakness, light-headedness, numbness and headaches. Psychiatric/Behavioral: Negative for dysphoric mood and suicidal ideas. The patient is not nervous/anxious. Past Medical History: Diagnosis Date Acid reflux disease Acute renal failure (HCC) April 2013 Adverse effect of anesthesia hx hallucinations after anesthesia x 3 yrs ago. Anesthesia hallucinated after bladder repair Arthralgia Arthritis Asthma Asthma Back pain Cancer (HCC) 2004 breast Cataract Cerebrovascular accident (CVA) ([facility]) no per pt Chronic back pain Chronic back pain Chronic constipation Concussion 07/2015 Preceeded by seizure Constipation COPD (chronic obstructive pulmonary disease) (HCC) Degenerative disc disease Depression Depression Diabetes mellitus (HCC) Diabetes mellitus, type 2 (HCC) diet controlled Diabetes type 2, controlled (HCC) diet controlled Diarrhea Disorder of thyroid Diverticulosis [...] Scoliosis Scoliosis of lumbar spine 04/17/2014 Seizure ([facility]) one due to meds, two due to dehydration at least couple years ago Strain of lumbar region 02/25/2019 Syncope and collapse Tardive dyskinesia Use of cane as ambulatory aid Past Surgical History: Procedure Laterality Date ANKLE FRACTURE SURGERY Left 2010 BLADDER SUSPENSION BREAST SURGERY LUMPECTOMY BREAST SURGERY Left 1996 CARDIAC CATHERIZATION 2016 no stents SECTION 1974 SECTION CHOLECYSTECTOMY 1998 SAH CHOLECYSTECTOMY COLONOSCOPY 2009 COLONOSCOPY CYSTOCELE REPAIR FIXATION KYPHOPLASTY 06/13/2018 Procedure: KYPHOPLASTY; Surgeon: Alfredo Casillas DO; Location: [facility]; Service: Pa in Management; Laterality: N/A; L5 FRACTURE SURGERY ANKLE HERNIA REPAIR HYSTERECTOMY HYSTERECTOMY LAMINECTOMY N/A 08/03/2019 Procedure: LAMINOTOMY THORACIC / LUMBAR W/ PLACEMENT SPINAL CORD STIMULATOR; Surgeon: Suly Hutchins MD; [place] [facility] [place] OTHER SURGICAL HISTORY EPIDURAL STEROID INJECTION OTHER SURGICAL HISTORY 08/28/2018 EPIDURAL STEROID INJECTION - LESI L4-L5 OTHER SURGICAL HISTORY 09/11/2018 EPIDURAL STEROID INJECTION - LESI L5-S1 OTHER SURGICAL HISTORY UNLISTED PROCEDURE ARTHROSCOPY SLING REMOVAL , BLADDER 2006 TUBAL LIGATION UPPER GASTROINTESTINAL ENDOSCOPY Allergies Allergen Reactions Prednisolone Other (See Comments) Depression/suicidal Ambien [Zolpidem] Hallucination Ativan [Lorazepam] Hallucination Prior to Admission medications Medication Sig Start Date End Date Taking? Authorizing Provider ALBUTEROL IN Inhale into the lungs. Yes Historical Provider, alendronate (FOSAMAX) 70 mg tablet TAKE 1 TABLET BY MOUTH ONCE A WEEK 05/05/20 Yes Historica l Provider, Calcium Carb-Cholecalciferol (CALCIUM 600 + D PO) Take by mouth. Yes Historical Provider, clonazePAM (KLONOPIN) 1 mg tablet Take 1-2 mg by mouth nightly as needed for Anxiety Usuall y takes qhs, has been on it 20 year. Yes Historical Provider, fluticasone (FLONASE) 50 mcg/nasal spray USE 1 SPRAY(S) IN EACH NOSTRIL TWICE DAILY FOR 30 DAYS 04/14/20 Yes Historical Provider, HYDROcodone-acetaminophen (NORCO) 10-325 mg per tablet Take 1 tablet by mouth every 4 hours as needed for Pain for up to 30 days. 06/18/20 07/18/20 Yes Denystamara Gloveraiso, DO levothyroxine (SYNTHROID) 100 mcg tablet Take 100 mcg by mouth every morning (before breakf ast). Yes Historical Provider, lidocaine-prilocaine (EMLA) cream Apply to affected area 2 or 3 times a day 04/15/20 04/15/21 Yes Denys G Belenaiso, DO Loratadine 10 MG CAPS Take 10 mg by mouth Daily as needed. Yes Historical Provider, methocarbamol (ROBAXIN) 500 mg tablet Take 1 tablet by mouth every 6 hours as needed for up to 30 days. 06/18/20 07/18/20 Yes Denys G Laraiso, DO methocarbamol (ROBAXIN) 500 mg tablet Take 500 mg by mouth 4 (four) times daily. 04/15/20 Y es Denys G Belenaiso, DO metoprolol succinate (TOPROL-XL) 25 mg 24 hr tablet Take 1 tablet by mouth Daily. Patient taking differently: Take 25 mg by mouth nightly . 02/28/20 Yes Zuleyka Castillo, DO naloxone (NARCAN) 4 mg/nasal spray 1 spray by Nasal route as needed for Decreased Responsiv eness (May repeat with second device into other nostril after 2 minutes). 06/18/19 Yes Denys G Belenaiso, DO pramipexole (MIRAPEX) 0.5 MG tablet 0.5 mg . 04/14/20 Yes Historical Provider, MD rOPINIRole (REQUIP) 4 mg tablet Take 4 mg by mouth 2 times daily . 04/18/20 Yes Historical Provider, warfarin (COUMADIN) 5 mg tablet Take 1 tablet by mouth Daily. 04/03/20 04/03/21 Yes Zuleyka quiroz DO Family History Problem Relation Age of Onset Diabetes Mother 15 Arthritis Mother Heart disease Mother Kidney disease Mother Renal failure Mother Cancer Sister Lung cancer Father Alcohol abuse Father Heart failure Brother Heart attack Brother 52 No known problems Maternal Grandmother Parkinsonism Maternal Grandfather Heart failure Paternal Grandmother Cancer Paternal Grandfather No known problems Son No known problems Son No known problems Child Alcohol abuse Paternal Uncle Cancer Paternal Uncle Cancer Paternal Uncle Stomach cancer Paternal Uncle Heart failure Paternal Aunt Rachna hyperthermanuel Neg Hx Social History Socioeconomic History Marital status: Spouse name: Not on file Number of children: 3 Years of education: 14 Highest education level: Not on file Occupational History Occupation: [employer] Social Needs Financial resource strain: Not on file Food insecurity Worry: Not on file Inability: Not on file Transportation needs Medical: Not on file Non-medical: Not on file Tobacco Use Smoking status: Never Smoker Smokeless tobacco: Never Used Tobacco comment: exposed to 2nd smoke from father growing up , Substance and Sexual Activity Alcohol use: Yes Comment: Alcoholic Drinks/day: not often..twice per year Drug use: No Comment: Drug use: No Sexual activity: Never Lifestyle Physical activity Days per week: Not on file Minutes per session: Not on file Stress: Not on file Relationships Social connections Talks on phone: Not on file Gets together: Not on file Attends anabaptism service: Not on file Active member of club or organization: Not on file Attends meetings of clubs or organizations: Not on file Relationship status: Not on file Intimate partner violence Fear of current or ex partner: Not on file Emotionally abused: Not on file Physically abused: Not on file Forced sexual activity: Not on file Other Topics Concern Not on file Social History Narrative Not on file PHYSICAL EXAM Vital Signs: Ht 1.549 m (5' 1") | Wt 52.8 kg (116 lb 6.4 oz) | LMP (LMP Unknown) | BMI 21.99 kg/m Physical Exam Constitutional: Appearance: She is well-developed. HENT: Head: Normocephalic and atraumatic. Right Ear: External ear normal. Left Ear: External ear normal. Eyes: General: Right eye: No discharge. Left eye: No discharge. Conjunctiva/sclera: Conjunctivae normal. Neck: Thyroid: No thyromegaly. Pulmonary: Effort: Pulmonary effort is normal. Skin: General: Skin is warm and dry. Neurological: Mental Status: She is alert and oriented to person, place, and time. Psychiatric: Behavior: Behavior normal. Thought Content: Thought content normal. Back Exam Tenderness The patient is experiencing tenderness in the lumbar. Other Gait: antalgic DATA No results found for this or any previous visit (from the past 360 hour(s)). PROBLEM LIST 1. Spinal stenosis of lumbosacral region 2. Lumbar region somatic dysfunction 3. Degenerative lumbar spinal stenosis 4. Encounter for long-term use of opiate analgesic ASSESSMENT & PLAN Mrs. Rubio is a 75-year-old female here complaining of right-sided hip pain and it seems to be going into her groin. She does have a new compression fracture at T12. I th ink there may be some nerve root impingement due to that. We will get updated MRI of her th oracic and lumbar region and then have her follow up for reevaluation afterwards. She does agree with the plan. Denies any loss of bowel or bladder function. We do look forward to continue participating in her care. Plan, alternatives, risks and potential benefits of the procedure were explained to the pat ient in great detail. The patient understands that there is no guarantee they will get pain relief with this procedure. They also understand that if they do get pain relief that ther e is no way to know how long it will last. They also understand there is a risk to the proc edure itself which includes but are not limited to infection, abscess, hematoma, nerve damag e, paraplegia or quadriplegia, increased pain, spinal headache, stroke, and side effects fro m the medications themselves. The patient wishes to proceed. Patient is currently participating in home exercises. Primary Care Physician: Romy De La Paz MD follow up Alfredo Casillas DO 07/08/2020 This document has been prepared with [employer] voice recognition system. The possibility of "s ound alike" winery worker errors, and additions, or deletions may occur. If there is any que stion with respect to clarity of the message being conveyed, please contact me directly for clarification. docuana gold in this encounter Plan of Treatment +--------+---------+ + + + | Date | Type | Specialty | Care Team | Description | +--------+---------+ + + + | 08/20/ | Office | Pain Medicine | Denys Sibley, | | 2019 | Visit | | [address] | | | | | | [place] | | | | | | [address] | | | | | | | | +--------+---------+ + + + | 09/01/ | Office | Cardiology | Monserrat Weems | | 2019 | Visit | | [address] | | | | | | [address] | | | | | | [place] [address] | | | | | | [phone] | | | | | | | | +--------+---------+ + + + documented as of this encounter Visit Diagnoses + + | Diagnosis | + + | Spinal stenosis of lumbosacral region - Primary Spinal stenosis, lumbar region, | | without neurogenic claudication | + + | Lumbar region somatic dysfunction Nonallopathic lesion of lumbar region, not | | elsewhere classified | + + | Degenerative lumbar spinal stenosis Spinal stenosis, lumbar region, without | | neurogenic claudication | + + | Encounter for long-term use of opiate analgesic Encounter for long-term (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 | | of other medications | + + documented in this encounter
--- OUTSIDE RECORDS SUMMARY | ~2020-08-10 | XMS | Encounter Summary ---
Demographics + + + | Address | [address] | | | [place] [address] | + + + | Home Phone | | + + + | Preferred Language | Unknown | + + + | Marital Status | | + + + | Temple Affiliation | 1013 | + + + | Race | White | + + + | Ethnic Group | Not or | + + + Author + + + | Author | [facility] | | | and [place] | + + + | Organization | [facility] | | | [...] Team Providers + +------+ + | Care Multicultural Internship Name | Role | Phone | + +------+ + | Romy De La Paz MD | PCP | | + +------+ + Encounter Details +--------+ + + + + | Date | Type | Department | Care Team | Description | +--------+ + + + + | 07/18/ | Preadmit | [facility] | No, Physician p | | | 2019 | Visit | CENTER PREADMIT | | | | | | CLINIC [address] | | | | | [address] [place], [place] | | | | | | [address] | | | | | | [phone] | | | +--------+ + + + [...] + + + | Blood Pressure | 102/53 | 07/18/2019 2:48 PM | | | | | PDT | | + + + + + | Pulse | 62 | 07/18/2019 2:48 PM | | | | | PDT | | + + + + + | Temperature | - | - | | + + + + + | Respiratory Rate | - | - | | + + + + + | Oxygen Saturation | 99% | 07/18/2019 2:48 PM | | | | | PDT | | + + + + + | Inhaled Oxygen | - | - | | | Concentration | | | | + + + + + | Weight | 50.9 kg (112 lb 3.2 | 07/18/2019 2:48 PM | | | | oz) | PDT | | + + + + + | Height | 154.9 cm (5' 1") | 07/18/2019 2:48 PM | | | | | PDT | | + + + + + | Body Mass Index | 21.2 | 07/18/2019 2:48 PM | | | | | PDT | | + + + + + documented in this encounter Patient Instructions Instructions Ericka Rice RN - 07/18/2019 Outpatient Medications Marked as Taking for the 07/18/19 encounter (Preadmit Visit) with [facility] ROOM 5 Medication Sig Instructions Ascorbic Acid (VITAMIN C) 1000 MG tablet Take 1,000 mg by mouth Daily. DO NOT TAKE day of procedure Calcium Carb-Cholecalciferol (CALCIUM 1000 + D PO) Take by mouth. DO NOT TAKE day of p rocedure clonazePAM (KLONOPIN) 1 mg tablet Take 1-2 mg by mouth nightly as needed for Anxiety. D O NOT TAKE day of procedure fentaNYL (DURAGESIC) 25 mcg/hr Place 1 patch onto the skin every 72 hours. TAKE day of procedure HYDROcodone-acetaminophen (NORCO) 7.5-325 mg per tablet Take 1 tablet by mouth every 6 (six) hours as needed for Pain for up to 30 days. TAKE day of procedure, if needed levothyroxine (SYNTHROID) 100 mcg tablet Take 100 mcg by mouth every morning (before br eakfast). TAKE day of procedure lidocaine-prilocaine (EMLA) cream Apply to affected area 2 or 3 times a day DO NOT TAKE day of procedure Loratadine 10 MG CAPS Take 10 mg by mouth Daily as needed. DO NOT TAKE day of procedure methocarbamol (ROBAXIN) 500 mg tablet Take 500 mg by mouth 4 (four) times daily. DO NOT TAKE day of procedure Multiple Vitamins-Minerals (MULTIVITAMIN WITH MINERALS) tablet Take 1 tablet by mouth d aily. DO NOT TAKE day of procedure naloxone (NARCAN) 4 mg/nasal spray 1 spray by Nasal route as needed for Decreased Respo nsiveness (May repeat with second device into other nostril after 2 minutes). TAKE day of pr ocedure, if needed nitroglycerin (NITROSTAT) 0.[address] 0.4 mg under the tongue every 5 minute s as needed for Chest pain. TAKE day of procedure, if needed ondansetron (ZOFRAN) 24 MG tablet Take 24 mg by mouth once. TAKE day of procedure, if n eeded raNITIdine (ZANTAC) 150 mg tablet Take 150 mg by mouth 2 (two) times daily. TAKE day of procedure rOPINIRole (REQUIP) 4 mg tablet Take 4 mg by mouth 4 times daily. TAKE day of procedure Discharge Instructions for Laminectomy A surgeon removed [...] by elevating your feet Date Last Reviewed: 9011-1449 [employer]. [address] [place] [id number]. All righ ts reserved. This information is not intended as a substitute for professional medical care. Always follow your healthcare professional's instructions. documented in this encounter Miscellaneous Notes Preadmit Clinic Note - Latoya Warner RN - 07/18/2019 2:00 [address] PDTDr. Gautam notified of abnormal chest x-ray results, ok to proceed with OR. [facility] Note - Ericka Rice RN - 07/18/2019 2: 00 PM PDTAbnormal chest xray. Dr. Hutchins notified via fax. Placed in f/u to notify anesthesiaE lectronically signed by Ericka Rice RN at 07/18/2019 7:28 PM [facility] Note - Ericka Ramos RN - 07/18/2019 2:00 PM PDTMeets mets of 4. Walks daily. Uses a cane or walker . documented in this enco unter Plan of Treatment +--------+---------+ + + + | Date | Type | Specialty | Care Team | Description | +--------+---------+ + + + | 08/20/ | Office | Pain Medicine | Denys Sibley, | | | 2019 | Visit | | DO [address] | | | | | | [place] | | | | | | [address] | | | | | | | | +--------+---------+ + + + | 09/01/ | Office | Cardiology | Monserrat Weems | | | 2019 | Visit | | [address] | | [address] | | | | | | [place] [address] | | | | | | [phone] | | | | | | | [...] this | | LATERAL | e | 3:24 PM | | procedure are in the | | | | PDT | | results section. | + +--------+ + + + | TYPE AND SCREEN | WU | 07/18/2019 | | Results for this | | | | 2:30 PM | | procedure are in the | | | | PDT | | results section. | + +--------+ + + + | MRSA NAAT | Routin | 07/18/2019 | | Results for this | | | e | 2:27 PM | | procedure are in the | | | | PDT | | results section. | + +--------+ + + + | PTT | Timed | 07/18/2019 | | Results for this | | | | 2:26 PM | | procedure are in the | | | | PDT | | results section. | + +--------+ + + + | PROTIME INR | Timed | 07/18/2019 | | Results for this | | | | 2:26 PM | | procedure are in the | | | | PDT | | results section. | + +--------+ + + + | CBC WITH | Timed | 07/18/2019 | | Results for this | | DIFFERENTIAL | | 2:26 PM | | procedure are in the | | | | PDT | | results section. | + +--------+ + + + | COMPREHENSIVE | Timed | 07/18/2019 | | Results for this | | METABOLIC PANEL | | 2:26 PM | | procedure are in the | | | | PDT | | results section. | + +--------+ + + + | ECG 12 LEAD | Timed | 07/18/2019 | | Results for this | | | | 2:24 PM | | procedure are in the | | | | PDT | | results section. | + +--------+ + + + documented in this encounter Results XR Chest PA and Lateral (07/18/2019 3:24 PM PDT) + + | Specimen | + + | | + + + + + | Narrative | Performed At | + + + | CHEST PA AND LATERAL CLINICAL INFORMATION: Pre-operative | [facility] | | COMPARISON: BEATRIZ C ARM GUIDANCE (03/28/2019); BEATRIZ C ARM GUIDANCE | | | (09/11/2018); XR CHEST 1 VIEW (11/16/2013); FINDINGS: Mild | | | blunting of the posterior left costophrenic angle. Lungs otherwise | | | clear. No pneumothorax. Cardiac and mediastinal contours normal. | | | No significant bone abnormality. IMPRESSION: Blunting of the | | | posterior left costophrenic angle representing some combination of | | | effusion and atelectasis. Signed by: Shady Briggs David | | | Sign Date/Time: 07/18/2019 4:58 PM | | + + + + + | Procedure Note | + + | Junior, Rad Results In - 07/18/2019 5:02 PM PDT | | CHEST PA AND LATERAL | | | | CLINICAL INFORMATION: | | Pre-operative | | | | COMPARISON: | | BEATRIZ C ARM GUIDANCE (03/28/2019); BEATRIZ C ARM GUIDANCE (09/11/2018); XR CHEST | | 1 VIEW (11/16/2013); | | | | FINDINGS: | | Mild blunting of the posterior left costophrenic angle. Lungs | | otherwise clear. No pneumothorax. Cardiac and mediastinal contours | | normal. No significant bone abnormality. | | | | IMPRESSION: | | Blunting of the posterior left costophrenic angle representing some | | combination of effusion and atelectasis. | | | | | | | | Signed by: Shady Briggs David | | Sign Date/Time: 07/18/2019 4:58 PM | + + + +---------+ + + | Performing | Address | City/State/Zipcode | Phone Number | | Organization | | | | + +---------+ + + | [facility] | | | | + +---------+ + + Type and Screen (07/18/2019 2:30 PM PDT) + + + + + [...] + + + + | Antibody | Testing performed at | | [facility] | | | Screen | [facility] | | LABORATORY | | | | [address];[place] [address] | | | | + + + + + + + + | Specimen | + + | Blood | + + + + + + + | Performing | Address | City/State/Zipcode | Phone Number | | Organization | | | | + + + + + | [facility] | [address] | [place] [address] | [phone] | + + + + + MRSA NAAT (07/18/2019 2:27 PM PDT) + + + + + + | Component | Value | Ref Range | Performed | Pathologist | | | | | At | Signature | + + + + + + | SOURCE: | NARES(NOSE) | | [facility] | | | | | | LABORATORY | | + + + + + + | Result | NEGATIVEComment: Testing | MRSNEG | [facility] | | | | performed at [facility] | | LABORATORY | | | | [address];[place], [place] | | | | | | [address] | | | | + + + + + + + + | Specimen | + + | Tissue - Both | | anterior nares (body | | structure) | + + + + + + + | Performing | Address | City/State/Zipcode | Phone Number | | Organization | | | | + + + + + | [facility] | [address] | [place] [address] | [phone] | + + + + + Protime INR (07/18/2019 2:26 PM PDT) + + + + + + | Component | Value | Ref Range | Performed | Pathologist | | | | | At | Signature | + + + + + + | INR | 1.0Comment: REFERENCE | | [facility] | | | | RANGE:0.9 - 1.2 | | LABORATORY | | | | NON-ANTICOAGULATED2.0 | | [...] | | | | | performed at [facility];[address] | | | | | | [address];[place] | | | | | | [address] | | | | + + + + + + + + | Specimen | + + | Blood | + + + + + + + | Performing | Address | City/State/Zipcode | Phone Number | | Organization | | | | + + + + + | [facility] | [address] | [place] [address] | [phone] | + + + + + PTT (07/18/2019 2:26 PM PDT) + + + + + + | Component | Value | Ref Range | Performed | Pathologist | | | | | At | Signature | + + + + + + | PTT | 29Comment: Testing | 23 - 32 seconds | [facility] | | | | performed at [facility];[address] | | LABORATORY | | | | [address];[place] | | | | | | [address] | | | | + + + + + + + + | Specimen | + + | Blood | + + + + + + + | Performing | Address | City/State/Zipcode | Phone Number | | Organization | | | | + + + + + | [facility] | [address] | [place] [address] | [phone] | + + + + + Comprehensive Metabolic Panel (07/18/2019 2:26 PM PDT) + + + + + + | Component | Value | Ref Range | Performed | Pathologist | | | | | At | Signature | + + + + + + | Na | 138 | 135 - 145 | [facility] | | | | | mmol/L | LABORATORY | | + + + + + + | K | 3.8 | 3.5 - 4.9 | [facility] | | | | | mmol/L | LABORATORY | | + + + + + + | Cl | 103 | 99 - 109 mmol/L | [facility] | | | | | | LABORATORY | | + + + + + + | CO2 | 31 | 23 - 32 mmol/L | [facility] | | | | | | LABORATORY | | + + + + + + | Anion Gap | 8 | 5 - 20 mmol/L | [facility] | | | | | | LABORATORY | | + + + + + + | Glucose | 94 | 65 - 99 mg/dL | [facility] | | | | | | LABORATORY | | + + + + + + | BUN | 18 | 8 - 25 mg/dL | [facility] | | | | | | LABORATORY | | + + + + + + | Creatinine | 0.8 | 0.50 - 1.00 | [facility] | | | | | mg/dL | LABORATORY | | + + + + + + | BUN/Creatin | 23 | | [facility] | | | ine Ratio | | | LABORATORY | | + + + + + + | Calcium | 8.7 | 8.5 - 10.5 | [facility] | | | | | mg/dL | LABORATORY | | + + + + + + | Protein, | 6.9 | 6.3 - 8.2 g/dL | [facility] | | | Total | | | LABORATORY | | + + + + + + | Albumin | 3.7 | 3.3 - 4.8 g/dL | [facility] | | | | | | LABORATORY | | + + + + + + | Globulin | 3.2 | 1.3 - 4.9 g/dL | [facility] | | | | | | LABORATORY | | + + + + + + | A/G Ratio | 1.2 | 1.0 - 2.4 | [facility] | | | | | | LABORATORY | | + + + + + + | BILIRUBIN, | 0.2 | 0.1 - 1.5 mg/dL | [facility] | | | TOTAL | | | LABORATORY | | + + + + + + | ALK PHOS | 61 | 35 - 115 U/L | [facility] | | | | | | LABORATORY | | + + + + + + | AST | 17 | 10 - 45 U/L | [facility] | | | | | | LABORATORY | | + + + + + + | ALT | 20 | 10 - 65 U/L | [facility] | | | | | | LABORATORY | | + + + + + + | Estimated | >60Comment: GFR <60: | >60 | [facility] | | | GFR | CHRONIC KIDNEY DISEASE, | mL/min/1.73m2 | LABORATORY | | | | IF FOUND OVER A 3 MONTH | | | | | | PERIOD.GFR <15: KIDNEY | | | | | | FAILURE.FOR | | | | | | AMERICANS, MULTIPLY THE | | | | | | CALCULATED GFR BY | | | | | | 1.210.This eGFR is | | | | | | calculated using the | | | | | | MDRD IDMS traceable | | | | | | equation.Testing | | | | | | performed at [facility], [address] | | | | | [facility], | | | | | | [place] [address] | | | | + + + + + + + + | Specimen | + + | Blood | + + + + + + + | Performing | Address | City/State/Zipcode | Phone Number | | Organization | | | | + + + + + | [facility] | [address] | [place] [address] | [phone] | + + + + + CBC with Differential (07/18/2019 2:26 PM PDT) + + + + + + | Component | Value | Ref Range | Performed | Pathologist | | | | | At | Signature | + + + + + + | WBC | 5.40 | 3.80 - 11.00 | [facility] | | | | | K/uL | LABORATORY | | + + + + + + | Red Blood | 4.24 | 3.70 - 5.10 | [facility] | | | Cells | | M/uL | LABORATORY | | + + + + + + | Hemoglobin | 12.6 | 11.3 - 15.5 | [facility] | | | | | g/dL | LABORATORY | | + + + + + + | Hematocrit | 37.4 | 34.0 - 46.0 % | [facility] | | | | | | LABORATORY | | + + + + + + | MCV | 88.1 | 80.0 - 100.0 fl | [facility] | | | | | | LABORATORY | | + + + + + + | MCH | 29.8 | 27.0 - 34.0 pg | [facility] | | | | | | LABORATORY | | + + + + + + | MCHC | 33.8 | 32.0 - 35.5 | [facility] | | | | | g/dL | LABORATORY | | + + + + + + | RDW-SD | 42.0 | 37 - 53 fl | [facility] | | | | | | LABORATORY | | + + + + + + | Platelet | 295 | 150 - 400 K/uL | [facility] | | | Count | | | LABORATORY | | + + + + + + | MPV | 8.9 | fl | [facility] | | | | | | LABORATORY | | + + + + + + | Diff Type | AUTOMATED | | [facility] | | | | | | LABORATORY | | + + + + + + | % | 42.70 | % | [facility] | | | Neutrophils | | | LABORATORY | | + + + + + + | % | 46.37 | % | [facility] | | | Lymphocytes | | | LABORATORY | | + + + + + + | Monocyte % | 8.43 | % | [facility] | | | | | | LABORATORY | | + + + + + + | Eosinophils | 1.94 | % | [facility] | | | % | | | LABORATORY | | + + + + + + | Basophils % | 0.56 | % | [facility] | | | | | | LABORATORY | | + + + + + + | Neutrophils | 2.30 | 1.90 - 7.40 | [facility] | | | , Absolute | | K/uL | LABORATORY | | + + + + + + | Absolute | 2.50 | 1.00 - 3.90 | [facility] | | | Lymphocytes | | K/uL | LABORATORY | | + + + + + + | Absolute | 0.46 | 0.00 - 0.80 | [facility] | | | Monocytes | | K/uL | LABORATORY | | + + + + + + | Eosinophils | 0.11 | 0.00 - 0.50 | [facility] | | | , Absolute | | K/uL | LABORATORY | | + + + + + + | Basophils, | 0.03Comment: Testing | 0.00 - 0.10 | [facility] | | | Absolute | performed at [facility], [address] | K/uL | LABORATORY | | | | [address], | | | | | | [place] [address] | | | | + + + + + + + + | Specimen | + + | Blood | + + + + + + + | Performing | Address | City/State/Zipcode | Phone Number | | Organization | | | | + + + + + | [facility] | [address] | [place] [address] | [phone] | + + + + + ECG 12 lead (07/18/2019 2:24 PM PDT) + + + + + + | Component | Value | Ref Range | Performed | Pathologist | | | | | At | Signature | + + + + + + | VENTRICULAR | 60 | BPM | [facility] | | | RATE EKG | | | | | + + + + + + | ATRIAL RATE | 60 | BPM | [facility] | | + + + + + + | P-R | 160 | ms | [facility] | | | INTERVAL | | | | | + + + + + + | QRS | 80 | ms | [facility] | | | DURATION | | | | | + + + + + + | Q-T | 430 | ms | [facility] | | | INTERVAL | | | | | + + + + + + | Q-T | 430 | ms | [facility] | | | INTERVAL | | | | | | (CORRECTED) | | | | | + + + + + + | P WAVE AXIS | 67 | degrees | [facility] | | + + + + + + | QRS AXIS | -16 | degrees | [facility] | | + + + + + + | T AXIS | 68 | degrees | [facility] | | + + + + + + | INTERPRETAT | Normal sinus | | [facility] | | | ION TEXT | rhythmCannot rule out | | | | | | Anterior infarct , age | | | | | | undeterminedAbnormal | | | | | | ECGConfirmed by | | | | | | Rufino Murray MD | | | | | | ([id number]) on 07/19/2019 | | | | | | 10:10:25 PM | | | | + + + + + + + + | Specimen | + + | | + + + + + | Narrative | Performed At | + + + | | | + + + + +---------+ + + | Performing | Address | City/State/Zipcode | Phone Number | | Organization | | | | + +---------+ + + | [facility] | | | | + +---------+ + + documented in this encounter Visit Diagnoses Not on filedocumented in this encounter
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
--- OUTSIDE RECORDS SUMMARY | ~2020-08-10 | XMS | Encounter Summary ---
Demographics + + + | Address | [address] | | | [place] [address] | + + + | Home Phone | | + + + | Preferred Language | Unknown | + + + | Marital Status | | + + + | Restoration Affiliation | [id number] | + + + | Race | White | + + + | Ethnic Group | Not or | + + + Author + + + | Author | [facility] | | | and [place] | + + + | Organization | [facility] | | | and [...] Team Providers + +------+ + | Care Slate Cutter Operator Name | Role | Phone | + +------+ + | Wendi Aiken | PCP | | + +------+ + Reason for Referral Evaluate & Treat (Routine) +--------+ + + + + + | Status | Reason | Specialty | Diagnoses / | Referred By | Referred To | | | | | Procedures | Contact | Contact | +--------+ + + + + + | Closed | Specialty | Pain Medicine | Diagnoses | Sj Valdes | HAJA | | | Services | | | MD [address] | HEALTHCARE | | | Required | | Sacroiliitis | [facility] [address] | [address] | | | | | ([facility]) | [place], | [address] | | | | | Scoliosis of | [place] [address] | [place], | | | | | lumbar | Phone: | [place] [address] | | | | | spine, | [phone] | Phone: | | | | | unspecified | Fax: | [phone] | | | | | scoliosis | [phone] | Fax: | | | | | type | | [phone] | | | | | Foraminal | | | | | | | stenosis of | | | | | | | lumbar | | | | | | | region | | | | | | | Facet | | | | | | | arthritis of | | | | | | | lumbar | | | | | | | region Left | | | | | | | lumbar | | | | | | | radiculopath | | | | | | | y Right | | | | | | | lumbar | | | | | | | radiculopath | | | | | | | y | | | +--------+ + + + + + + + | Scheduling Instructions | + + | Prefers Patrizia if possible | + + Reason for Visit + + + | Reason | Comments | + + + | Back Pain | lower back pain | + + + Evaluate & Treat (Routine) +--------+ + + + + + | Status | Reason | Specialty | Diagnoses / | Referred By | Referred To | | | | | Procedures | Contact | Contact | +--------+ + + + + + | Closed | Specialty | Neurosurgery | Diagnoses | | Sj Valdes | | | Services | | Chronic | Tr Dueñas MD [address] | | | Required | | bilateral | [place], | [address] | | | | | low back | PA-C [address] | [place], [place] | | | | | pain with | [address], | [address] | | | | | right-sided | [address] | Phone: | | | | | sciatica | [place] | [phone] | | | | | Facet | [phone] | Fax: | | | | | arthritis of | Phone: | [phone] | | | | | lumbar | [phone] | | | | | | region | Fax: | | | | | | Adolescent | [phone] | | | | | | idiopathic | | | | | | | scoliosis of | | | | | | | lumbar | | | | | | | region | | | | | | | Trochanteric | | | | | | | bursitis of | | | | | | | right hip | | | | | | | Spondylosis | | | | | | | of lumbar | | | | | | | region | | | | | | | without | | | | | | | myelopathy | | | | | | | or | | | | | | | radiculopath | | | | | | | y | | | +--------+ + + + + + Encounter Details +--------+---------+ + + + | Date | Type | Department | Care Team | Description | +--------+---------+ + + + | 07/12/ | Office | [facility] | Sj Valdes MD | SACROILIITIS | | 2017 | Visit | NEUROSURGERY [address] | [address] | (Primary Dx); | | | | [address] | [place] [address] | Scoliosis of lumbar | | | | [place], [place] | [phone] | spine, unspecified | | | | [address] | | scoliosis type; | | | | [phone] | | Foraminal stenosis | | | | | | of lumbar region - | | | | | | left L5-S1; Facet | | | | | | arthritis of lumbar | | | | | | region (HCC); Left | | | | | | lumbar | | | | | | radiculopathy; Right | | | | | | lumbar | | | | | | radiculopathy | +--------+---------+ + + + Social History [...] | Blood Pressure | 109/41 | 07/12/2017 1:33 PM | | | | | PDT | | + + + + + | Pulse | 74 | 07/12/2017 1:33 PM | | | | | PDT [...] Weight | 61.2 kg (135 lb) | 07/12/2017 1:33 PM | | | | | PDT | | + + + + + | Height | 157.5 cm (5' 2") | 07/12/2017 1:33 PM | | | | | PDT | | + + + + + | Body Mass Index | 24.69 | 07/12/2017 1:33 PM | | | | | PDT | | + + + + + documented in this encounter Progress Notes Sj Valdes MD - 07/12/2017 1:00 PM PDTFormatting of this note might be different from t manolo phillips. Sj Valdes M.D. [address] [place] [address], [address] [address] NEUROSURGERY HISTORY AND PHYSICAL EXAMINATION CHIEF COMPLAINT: Chief Complaint Patient presents with Follow-up MRI f/u HISTORY OF PRESENT ILLNESS: The patient is a 69 y.o. female with the complaint of low back and leg pain. I saw her previously back in 2013 and 2014 for similar problems. She was no t a candidate for surgery at that time. She continues to followup with physiatry and was re ferred back to discuss surgical options. She had an injection recently which is helping. T he patient states that most activities make her back and leg pain worse. 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 She reports sym ptoms worsening on the right but still has symptoms on the left. This patient continues to have multiple ongoing issues with depression, anxiety, and PTSD. She has a history of multiple suicidal attempts but none since 2015 per her today. 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 12/19/2013 GERD (gastroesophageal reflux disease) Hepatitis A History of stroke History of suicide attempt Hypertension Hypothyroidism Incontinence Insomnia Irritable bowel syndrome Kidney failure Left lumbar radiculopathy 11/01/2012 Feet Nausea and vomiting PTSD (post-traumatic stress disorder) Restless leg syndrome Scoliosis of lumbar spine 04/17/2014 PAST SURGICAL HISTORY: Past Surgical History: Procedure Laterality Date BREAST SURGERY LUMPECTOMY SECTION 1974 CHOLECYSTECTOMY 1998 SAH COLONOSCOPY 2009 CYSTOCELE REPAIR FRACTURE SURGERY ANKLE HYSTERECTOMY SLING REMOVAL , BLADDER 2006 CURRENT MEDICATIONS: Current Outpatient Prescriptions Medication Sig Dispense Refill albuterol 5 mg/mL nebulizer solution Take 2.5 mg by nebulization every 6 hours as neede d. amLODIPine (NORVASC) 5 mg tablet Take 5 mg by mouth Daily. clonazepam (KLONOPIN) 2 MG tablet Take 1 mg by mouth Twice daily as needed. ibuprofen (ADVIL,MOTRIN) 600 MG tablet Take 600 mg by mouth every 6 hours as needed for Pain. ipratropium (ATROVENT) 500 mcg/2.5 mL nebulizer solution Take 0.5 mg by nebulization 4 times daily. Lactobacillus (PROBIOTIC ACIDOPHILUS PO) Take 1 tablet by mouth Daily. levothyroxine (SYNTHROID, LEVOTHROID) 112 mcg tablet Take 0.88 mcg by mouth every morni ng (before breakfast). Loratadine 10 MG CAPS Take by mouth. ranitidine (ZANTAC) 150 MG capsule Take 150 mg by mouth as needed. Ropinirole HCl (REQUIP XL) 6 MG TB24 Take 4.5 mg by mouth 4 times daily. No current facility-administered medications for this visit. ALLERGIES: Allergies Allergen Reactions Lorazepam Morphine Zolpidem SOCIAL HISTORY: The patient reports that she has never smoked. She has never used smokeless tobacco. She r eports that she drinks alcohol. She reports that she does not use illicit drugs. FAMILY HISTORY: Family History Problem Relation Age of Onset Diabetes Mother Arthritis Mother Heart disease Mother Kidney disease Mother of kidney failure at 55. Cancer Sister Lung cancer Father at the age of 42. Alcohol abuse Father PHYSICAL EXAMINATION: Vitals: 07/12/17 1333 BP: 109/41 Pulse: 74 PainSc: 5 PainLoc: Back Body mass index is 24.69 kg/m. GENERAL: Kori Rubio is in no acute distress with unlabored respirations. The patient does appear uncomfortable throughout the exam today. HEENT: HEAD/FACE: EYES: EARS: NASOPHARNYX: OROPHARNYX: Normocephalic and atraumatic. There are no areas of recent trauma. Normal sclerae without icterus. SPINE: The lumbar spine shows there is no tenderness in the midline of the L3, L4, L5, S1 levels. To palpation, there is signficant bilaterally myofascial tenderness. There is major palpable deformity of the spine. EXTREMITIES: No edema. Distal pulses are palpable. NEUROLOGICAL EXAM: MENTAL STATUS: The patient is awake, alert, and oriented. She follows simple and complex commands. She speech is fluent, she comprehends speech well, and she repeats well. She has no apparent deficits with short or jail memory. MOTOR EXAM: (5 IS NORMAL) * Indicates pain limited MUSCLE/ MOVEMENT: RIGHT LEFT Deltoids 5 4+ Biceps 5 5 Triceps 5 5 Wrist Flexion 5 5 Wrist Extension 5 5 Median Intrinsics 5 4 Ulnar Intrinsics 5 4 Beekeeper Farmer Strength 5 4 Hip Flexion 5 4* Hip Extension 5 4* Knee Flexion 5 4* Knee Extension 5 4* Dorsiflexion 5 4* Extensor Hallicus Longus 5 4* Plantarflexion 5 5* SENSORY EXAM: Sensory exam shows decreased sensation to light touch over the upper and lower extremity on the left. Both sides are very mild to the right side GAIT: Antalgic RADIOGRAPHIC REVIEW: Patient cervical MRI shows no sign of cervical stenosis and no sign of cord signal changes from 2013. Her MRI of the lumbar spine from 2016 is stable with no severe canal stenosis. She has lef t L5-S1 foraminal stenosis. She has scoliois on CT and x-rays. ASSESSMENT: NEUROSURGICAL DIAGNOSES: Encounter Diagnoses Name Primary? 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) Left lumbar radiculopathy Right lumbar radiculopathy GENERAL DIAGNOSES: Past Medical History Diagnosis Date Nausea and vomiting Diarrhea Incontinence Dyspareunia Diabetes mellitus (HCC) Asthma Hypothyroidism Depression Restless leg syndrome Chronic back pain Irritable bowel syndrome Diverticulosis Hypertension Insomnia Hepatitis C GERD (gastroesophageal reflux disease) History of stroke History of suicide attempt Constipation Acute renal failure (HCC) April 2013 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 The degree of stenosis is moder ate and unchanged for the most part since 2013. I discussed options. Surgery would be extremely difficult for her physically and psycholog ically. She never followed through with her neuropsychiatric testing fully back in 2013 [place] she continues to see a psychologist in [place]. Despite her continued evaluation, I do not feel that surgery would be appropriate although she is welcome to a second opinion. I advised continue conservative care for her symptoms and recommended she try to have a yessica n management evaluation. Electronically signed by: Sj Valdes MD 07/13/2017 8:17 documented in this encou nter Plan of Treatment +--------+---------+ + + + | Date | Type | Specialty | Care Team | Description | +--------+---------+ + + + | 08/20/ | Office | Pain Medicine | Denys Sibley, | | | 2019 | Visit | | DO [address] | | | | | | [place] | | | | | | [address] | | | | | | | | +--------+---------+ + + + | 09/01/ | Office | Cardiology | FaustinaMonserrat | | | 2019 | Visit | | [address]NN Alaniz [address] | | | | | | [address] | | | | | | [facility] [place] [address] | | | | | | [phone] | | | | | | | | +--------+---------+ + + + + + +--------+ + + | Name | Type | Priori | Associated Diagnoses | Order Schedule | | | | ty | | | + + +--------+ + + | Pain Clinic, | Outpatient | Routin | SACROILIITIS | Ordered: 07/13/2017 | | External - AMB | Referral | e | Scoliosis of lumbar | | | Referral | | | spine, unspecified | | | | | | scoliosis type | | | | | | Foraminal stenosis | | | | | | of lumbar region - | | | | | | left L5-S1 Facet | | | | | | arthritis of lumbar | | | | | | region (HCC) Left | | | | | | lumbar radiculopathy | | | | | | Right lumbar | | | | | | radiculopathy | | + + +--------+ + + documented as of this encounter Visit Diagnoses + + | Diagnosis | + + | SACROILIITIS - Primary Sacroiliitis, not elsewhere classified | + + | Scoliosis of lumbar spine, unspecified scoliosis type | + + | 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
--- OUTSIDE RECORDS SUMMARY | ~2020-08-10 | XMS | Encounter Summary ---
Demographics + + + | Address | [address] | | | [place] [address] | + + + | Home Phone [...] | Author | [facility] | | | and [place] | + + + | Organization | [facility] | | | and [...] Team Providers + +------+ + | Care Chemistry Department Chair Name | Role | Phone | + +------+ + | Romy De La Paz MD | PCP | | + +------+ + Reason for Visit + +--------+ + | Reason | Onset | Comments | | | Date | | + +--------+ + | Pre-op Question | 07/24/ | | | | 2019 | | + +--------+ + Encounter Details +--------+ + + + + | Date | Type | Department | Care Team | Description | +--------+ + + + + | 07/24/ | Telephone | [facility] | Maykel Hutchins MD | Pre-op Question | | 2019 | | [facility] | [address] | | | | | ORTHOPEDIC SPINE | [place], [place] | | | | | [address] | [address] | | | | | [place], [place] | | | | | | [address] | | | | | | [phone] | | | +--------+ + + + [...] this encounter Miscellaneous Notes Telephone Encounter - Lisa Mcmanus CMA - 07/24/2019 9:39 AM PDTReturn call to patient to let her know that she can wear her wig but if it falls then they will remove it. She is also aware that laminectomy is needed in order to get spinal cord stimulator in. She gave verbal understanding. elephone Encounter - CrucibleKeyur - 07/24/2019 8:48 AM PDTLauririchie, is calling regarding Pre-op Qu estion and would like a call back. Additional Call Details: Patient called with questions about her upcoming surgery; "I thou ght I was getting a spine stimulator but I'm looking at the paperwork I signed off on and it s for a Laminectomy, which is something different. I need to know what I'm getting. I also w ant to know if I can keep wearing my wig during this. I clean it 2-3 times a week.". Please call her back at home phone listed. If this is a symptom based call, was patient offered triage? Not Applicable If this is a symptom based call and you were unable to immediately transfer the call to a jose m franco gate mortiser operator was caller made aware that if at any time she feels it is an emergency they sh ould call 911 or go to the nearest emergency room? not applicable documented in this encounter Plan of Treatment +--------+---------+ + + + | Date | Type | Specialty | Care Team | Description | +--------+---------+ + + + | 08/20/ | Office | Pain Medicine | Denys Sibley, | | | 2019 | Visit | | DO [address] | | | | | | [place] | | | | | | [phone] | | | | | | | | +--------+---------+ + + + | 09/01/ | Office | Cardiology | Monserrat Weems | | | 2019 | Visit | | [address] | | | | | | [address] | | | | | | [place] [address] | | | | | | [phone] | | | | | | | | +--------+---------+ + + + documented as of this encounter Visit Diagnoses Not on filedocumented in this encounter
--- OUTSIDE RECORDS SUMMARY | ~2020-08-10 | XMS | Encounter Summary ---
Demographics + + + | Address | [address] | | | [place] [address] | + + + | Home Phone | | + + + | Preferred Language | Unknown | + + + | Marital Status | | + + + | Anabaptist Affiliation | [id number] | + + + [...] Team Providers + +------+ + | Care Core Analysis Operator Name | Role | Phone | + +------+ + | Wendi Aiken | PCP | | + +------+ + Encounter Details +--------+ + + + + | Date | Type | Department | Care Team | Description | +--------+ + + + + | 04/07/ | Imaging | [facility] | Provider, | | | 2018 | Exam | [facility] | MD [address] | | | | | IMAGING [address] | | | | | [address] | [place] [address] | | | | | [place] [address] | | | | | | [phone] | | | +--------+ + + + [...] [place] | | | | | | [address] | | | | | | | | +--------+---------+ + + + | 09/01/ | Office | Cardiology | Monserrat eWems | | | 2019 | Visit | | [address] | | | | | | [address] | | | | | | [place] [address] | | | | | | [phone] | | | | | | | | +--------+---------+ + + + documented as of this encounter Procedures + +--------+ + + + | Procedure Name | Priori | Date/Time | Associated Diagnosis | Comments | | | ty | | | | + +--------+ + + + | CT HEAD WO CONTRAST | Routin | 02/24/2018 | | Results for this | | | e | 3:40 PM | | procedure are in the | | | | PDT | | results section. | + +--------+ + + + documented in this encounter Results CT Head wo Contrast (02/24/2018 3:40 PM PDT) + + | Specimen | [...]
--- OUTSIDE RECORDS SUMMARY | ~2020-08-10 | XMS | Encounter Summary ---
Demographics + + + | Address | [address] | | | [place] [address] | + + + | Home Phone | | + + + | Preferred Language | Unknown | + + + | Marital Status | | + + + | Mosque Affiliation | 1013 | + + + | Race | White | + + + | Ethnic Group | Not or | + + + Author + + + | Author | [facility] | | | and [place] | + + + | Organization | [facility] | | | [...] Team Providers + +------+ + | Care Bench Machine Operator Name | Role | Phone [...] + + | 06/18/ | Office | [facility] | Denys Sibley, | Spinal stenosis of | | 2019 | Visit | [facility] | DO [address] | lumbosacral region | | | | [address] | [place] | (Primary Dx); S/P | | | | [address] | [address] | insertion of spinal | | | | [place], [place] | | cord stimulator; | | | | [phone] | | Encounter for | | | | [phone] | | long-term use of | | | | | | opiate analgesic; | | | | | | Spondylosis [...] + + + | Blood Pressure | 128/72 | 06/18/2020 9:48 AM | | | | | PDT | | + + + + + | Pulse | 70 | 06/18/2020 9:48 AM | | | | | PDT | | + + + + + | Temperature | 36.9 C (98.4 F) | 06/18/2020 9:48 AM | | | | | PDT | | + + + + + | Respiratory Rate | 20 | 06/18/2020 9:48 AM | | | | | PDT | | + + + + + | Oxygen Saturation | 99% | 06/18/2020 9:48 AM | | | | | PDT | | + + + + + | Inhaled Oxygen | - | - | | | Concentration | | | | + + + + + | Weight | - | - | | + + + + + | Height | 154.9 cm (5' 1") | 06/18/2020 9:48 AM | | | | | PDT | | + + + + + | Body Mass Index | - | - | | + + + + + documented in this encounter Progress Denys Posada, DO - 06/18/2020 10:10 AM PDTFormatting of this note might be different fr om the original. CHRONIC PAIN VISIT Patient ID: Kori Rubio is a 74 y.o. female (: 1945). Subjective: Chronic Pain: The primary encounter diagnosis was Spinal stenosis of lumbosacral region. 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 Kori Caputo McintoshErasmo presents for chronic pain evaluation and [...] including but not limited to physical therapy, health care manager, acupuncture, massage therapy, and nutritional healt h counselors. and mental health counselors as deemed necessary Today's Pain Score: 7/10. Patient states that her pain overall is unchanged on her curre nt regimen. The patient reports cold weather and moisture worsens symptoms, and moist heat, pain medication and muscle relaxants relieves symptoms. Additional psycho-social events sin ce last visit include: none. The patient's current personal goal of pain management is: " To be pain-free". Things she is doing to reach that goal include: Exercise program. Progre ss toward meeting that goal has been: fair. Medication FYI Flag Type Author Status Filed Medication Agreement Rupa Nye, Claims Adjuster Crop Active 11/14/2019 1:49 PM Pain Contract- Dr. Sibley 11/14/2019 PEG Pain screening tool (Pain, enjoyment, general activity) Total score: (Printable questionnaires in Iranian ) Interpretation of Total Score: PEG scores are used to track changes over time. It should de crease after therapy has begun. Last 4 PEG Scores: No flowsheet data found. Opioid Risk Tool (ORT): Total Score Temp: 36.9 C (98.4 F) Temp Source: Oral Pulse: 70 Resp: 20 BP: 128/72 SpO2: 99 % (From Chronic Pain tab; printable questionnaires in Iranian) Interpretation of Total Score: 0 to 3 = Low risk: 6% chance of developing problematic behav iors, 4 to 7 = Moderate risk: 28% chance of developing problematic behaviors, 8 or more = Hi gh risk: 90% chance of developing problematic behaviors. No flowsheet data found. Outpatient Morphine Equivalent Daily Dose (MEDD) 06/18/20 - 07/18/20 60 mg MEDD Order Name Dose Route [...] factor of 1 = 60 mg MEDD 07/19/20 and after None Current Outpatient Medications: ALBUTEROL IN, Inhale into the lungs., Disp: , Rfl: alendronate (FOSAMAX) 70 mg tablet, TAKE 1 TABLET BY MOUTH ONCE A WEEK, Disp: , Rfl: cephalexin (KEFLEX) 500 mg capsule, TAKE 1 CAPSULE BY MOUTH EVERY 12 HOURS FOR 7 DAYS, Disp: , Rfl: clonazePAM (KLONOPIN) 1 mg [...] daily., Dis p: 120 tablet, Rfl: 3 methocarbamol (ROBAXIN) 500 mg tablet, Take 1 tablet by mouth every 6 hours as needed for up to 30 days., Disp: 90 tablet, Rfl: 0 metoprolol succinate (TOPROL-XL) 25 mg 24 hr [...] Arthralgia Arthritis Asthma Asthma Back pain Cancer ([facility]) 2004 breast Cataract Cerebrovascular accident (CVA) ([facility]) no per pt Chronic back pain Chronic back pain Chronic constipation Concussion 07/2015 Preceeded by seizure Constipation COPD (chronic obstructive pulmonary disease) ([facility]) Degenerative disc disease Depression Depression Diabetes mellitus ([facility]) Diabetes mellitus, type 2 ([facility]) diet controlled Diabetes type 2, controlled ([facility]) diet controlled Diarrhea Disorder of [...] Scoliosis Scoliosis of lumbar spine 04/17/2014 Seizure ([facility]) one due to meds, two [...] 15-21 = Severe Anxiety) Additional Problems: HPI Chronic bilateral low back pain without sciatica, chronic lumbar facet arthritis, foraminal stenosis lumbar region left L5-S1. Scoliosis lumbar spine, status post insertion of spinal cord stimulator, spinal stenosis lumbosacral region, chronic pain syndrome, long-term curre nt use of opiate analgesics History: Past Medical History: Diagnosis Date Acid reflux disease Acute renal failure ([facility]) April 2013 Adverse effect of anesthesia hx hallucinations after anesthesia x 3 yrs ago. Anesthesia hallucinated after bladder repair Arthralgia Arthritis Asthma Asthma Back pain Cancer ([facility]) 2004 breast Cataract Cerebrovascular accident (CVA) ([facility]) no per pt Chronic back pain Chronic back pain Chronic constipation Concussion 07/2015 Preceeded by seizure Constipation COPD (chronic obstructive pulmonary disease) ([facility]) Degenerative disc disease Depression Depression Diabetes mellitus ([facility]) Diabetes mellitus, type 2 ([facility]) diet controlled Diabetes type 2, controlled ([facility]) diet controlled Diarrhea Disorder of [...] Scoliosis Scoliosis of lumbar spine 04/17/2014 Seizure ([facility]) one due to meds, two [...] Procedure: KYPHOPLASTY; Surgeon: Alfredo Casillas DO; Location: [facility] MAIN OR; Service: Pa in [...] Musculoskeletal: Positive for arthralgias and back pain. Psychiatric/Behavioral: The patient is nervous/anxious. Objective: Vital Signs: BP 128/72 | Pulse 70 | Temp 36.9 C (98.4 F) (Oral) | Resp 20 | Ht 1.54 9 m (5' 1") | LMP (LMP Unknown) | SpO2 99% | BMI 21.73 kg/m Physical Exam 74-year-old female alert and oriented x4 no acute distress bowel bladder continent no gail l issues with current medication complain about significant left hip pain. Which is not man aged by her current spinal cord stimulator. Patient self diagnosed herself as having iliops oas bursitis. After discussions with her spinal cord stimulator field marketing representative. I suggested after lengthy discussion with her self and her healthcare pathology assistant. That she might benefit from injection and could be provided by Dr. Ly who has seen her in the p ast for injections and/or spinal cord stimulator. I suggested she contact his office to minal quiroz an appointment to see what he might have to offer. Active range of motion bilateral upper extremities within functional limits muscle strength is 4/5. Active range of motion bilateral lower extremities within functional limits muscle strength is 3+/5. Patient complains of significant left hip discomfort. X-rays were apparently mindi en by primary care and read as negative. Films or film reports were not available to review . Patient does have increased hip pain with internal and external rotation of the left hip. Balance sitting is good standing is fair to fair minus. Patient ambulates only short distan luis with bilateral canes. Patient utilizes a wheelchair for extended distance transportation. Once again, after lengthy discussion the patient will make an appointment to follow-up with interventional pain management. Over possible work-up and/or injections that may be availa ble for her to return to this office in 4 weeks for reevaluation Patient demonstrates limited functional status on above medication program., Including but not limited to activities of daily living, transfers, and mobility. Patient also recognize s the importance of taking the medications as prescribed. and keeping their follow-up appoi ntments as scheduled. Assessment and Plan: Chronic pain [...] reviewed, listed controlled substances are consistent with [facility] prescriptions and patient reported use. Controlled Medications: no change. Refills given as appropriate for the next 1 months, and she will follow up befo re next refill is due. Recent Review Flowsheet Data There is no flowsheet data to display. Pertinent Pain History: Chronic pain related to items appearing in the above history of present illness Helpful treatments: Moist heat and pain medication Failed treatments: Ice therapy ORT Score = 3 (0-3 = low risk, 4-7 = mod risk, 8+ = high risk) Daily Opioid Dose = [place] 10/325 1 p.o. every 4 hours as needed pain Daily Morphine Equivalent Dose (MED) = 60 mg of morphine daily Chronic benzodiazepine use: no Pain Agreement (date): {YES/N Visits every: Month Drug Screen every: 3 times a year Next Refill due: 30 days Follow-up: 1 month Alternative treatment modalities where discussed and offered to patient including but not l imited to physical therapy, massage therapy, acupuncture, health care manager, along with niki mmended psychological counseling, either privately, or in group sessions offered by private care individuals, community services, or mosque organizations. Appropriate referrals were made at patient [...] and complications with the passage of time. emt intermediate use is also associated with depressions, and liver and renal failure. Finally, these medicines are associated with both physical and emotional addiction and can be difficult to stop after taking for only a few weeks. Total time spent with the patient was 25 minutes of which more than 50 % was spent face to face, discussing above evaluation findings, treatment options and coordination of care with other health director career services and monitoring labs results, other test results and imagin g including [facility] and/or [facility] prescription monitoring systems. This document has been created using [employer] Voice Recognition software and [employer]. The entry has been reviewed for content and accuracy, but there may still exist "sound alike" claims support specialist word errors and/or unintended additions and deletions. If there is any question please contact the author of the document: Denys Sibley DOElectronically sig marianne by Denys Sibley DO at 06/18/2020 10:38 AM PDTdocumented in this encounter Plan of Treatment +--------+---------+ + + + | Date | Type | Specialty | Care Team | Description | +--------+---------+ + + + | 08/20/ | Office | Pain Medicine | Denys Sibley, | | 2019 | Visit | | DO [address] | | | | | | [place] | | | | | | [id number] | | | | | | | | +--------+---------+ + + + | 09/01/ | Office | Cardiology | Monserrat Weems | | | 2020 | Visit | | [address] | | | | | | [address] | | | | | | [place] [address] | | | | | | [phone] | | | | | | | | +--------+---------+ + + + documented as of this encounter Visit Diagnoses + + | Diagnosis | + + | Spinal stenosis of lumbosacral region - Primary Spinal stenosis, lumbar region, | | without neurogenic claudication | + + | S/P insertion of spinal cord stimulator | + + | Encounter for long-term use of opiate analgesic Encounter for long-term (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 | | of other medications | + + | Spondylosis without myelopathy [...]
--- OUTSIDE RECORDS SUMMARY | ~2020-08-10 | XMS | Encounter Summary ---
Demographics + + + | Address | [address] | | | [place] [address] | + + + | Home Phone [...] + + + | Author | [facility] | | | and [place] | + + + | Organization | [facility] | | | [...] Team Providers + +------+ + | Care Sensory Scientist Name | Role | Phone | + +------+ + | Romy De La Paz MD | PCP | | + +------+ + Encounter Details +--------+---------+ + + + | Date | Type | Department | Care Team | Description | +--------+---------+ + + + | 09/17/ | Office | [facility] | Denys Sibley, | S/P insertion of | | 2019 | Visit | [facility] | DO [address] | spinal cord | | | | [address] | [place] | stimulator (Primary | | | | [address] | [address] | Dx); Spinal stenosis | | | | [place], [place] | | of lumbosacral | | | | [address] | | region; Lumbar | | | | [phone] | | region somatic | | | [...] encounter Progress Notes Denys Sibley DO - 09/17/2019 8:00 AM PSTFormatting of this note might be different fr om the original. CHRONIC PAIN VISIT Patient ID: Kori Rubio is a 74 y.o. female (: 1945). 74-year-old female seen back to the office today for medication evaluation follow-up. Current medications include a fentanyl patch 12 mcg applied to the anterior chest wall ever y 74 hours. [place] 10/325 1 p.o. every 6 hours as needed pain Subjective: Chronic Pain: Kori McintoshErasmo presents for chronic pain evaluation [...] including but not limited to physical therapy, career guidance counselor, acupuncture, massage therapy, and nutritional healt h [...] general activity) Total score: (Printable questionnaires in [place] ) Interpretation of Total Score: PEG scores are used to track changes over time. It should de crease after therapy has begun. Last 4 PEG Scores: No flowsheet data found. Opioid Risk Tool (ORT): Total Score Pulse: 78 Resp: 16 BP: 102/52 SpO2: 98 % (From Chronic Pain tab; printable questionnaires in [place]) Interpretation of Total Score: 0 to 3 [...] Asthma Asthma Back pain Cancer ([facility]) 2004 breast Cataract Cerebrovascular accident (CVA) ([facility]) no per pt Chronic back pain Chronic back pain Chronic constipation Concussion 07/2015 Preceeded by seizure Constipation COPD (chronic obstructive pulmonary disease) ([facility]) Degenerative disc disease Depression Depression Diabetes mellitus ([facility]) Diabetes mellitus, type 2 ([facility]) diet controlled Diabetes type 2, controlled ([facility]) diet controlled Diarrhea Disorder of thyroid Diverticulosis [...] of lumbar spine 04/17/2014 Seizure ([facility]) one due to meds, two due to [...] Asthma Asthma Back pain Cancer ([facility]) 2004 breast Cataract Cerebrovascular accident (CVA) ([facility]) no per pt Chronic back pain Chronic back pain Chronic constipation Concussion 07/2015 Preceeded by seizure Constipation COPD (chronic obstructive pulmonary disease) ([facility]) Degenerative disc disease Depression Depression Diabetes mellitus ([facility]) Diabetes mellitus, type 2 ([facility]) diet controlled Diabetes type 2, controlled ([facility]) diet controlled Diarrhea Disorder of thyroid Diverticulosis [...] of lumbar spine 04/17/2014 Seizure ([facility]) one due to meds, two due to [...] Procedure: KYPHOPLASTY; Surgeon: Alfredo Casillas DO; Location: [facility] MAIN OR; Service: Pa in Management; Laterality: N/A; L5 FRACTURE SURGERY ANKLE HERNIA REPAIR HYSTERECTOMY HYSTERECTOMY LAMINECTOMY N/A 08/03/2019 Procedure: LAMINOTOMY THORACIC / LUMBAR W/ PLACEMENT SPINAL CORD STIMULATOR; Surgeon: Suly Hutchins MD; Location: [facility] MAIN OR OTHER [...] reviewed, listed controlled substances are consistent with [facility] prescriptions and patient reported use. Controlled Medications: [...] s ource of medication Pain Agreement (date): {YES/2019Visits every: Monthly Drug Screen every: 3 times a Next Refill due: 30 days Follow-up: Patient will follow-up in this office in 4 weeks. Patient is doing quite well on current medications but is concerned about tapering down her medication which we are attempting to do. Patient complained of increased shoulder pain ri ght greater than left and will follow up with color specialist I believe regarding the shoulder pain [...] imited to physical therapy, massage therapy, acupuncture, career guidance counselor, along with niki mmended psychological counseling, either privately, or in group sessions offered by private care individuals, community services, or scientology organizations. Appropriate referrals were made at patient [...] and complications with the passage of time. FCI use is also associated with depressions, and liver and renal failure. Finally, these medicines are associated with both physical and emotional addiction and can be difficult to stop after taking for only a few weeks. This document has been created using Cloud Elements Recognition software and [employer]. The entry has been reviewed for content and accuracy, but there may still exist "sound alike" vascular manager word errors and/or unintended additions and deletions. If there is any question please contact the author of the document: Denys Sibley, DOElectronically sig marianne by Denys Sibley DO [...] [place] | | | | | | [address] | | | | | | | | +--------+---------+ + + + | 09/01/ | Office | Cardiology | Monserrat Weems | | | 2019 | Visit | | [address] | | | | | | [address] | | | | | | [place] [address] | | | | | | [phone] | | | | | | | [...] | | encounter | + + | SACROILIITIS Sacroiliitis, not elsewhere classified | + + | Chronic bilateral low back pain with right-sided sciatica | + + | Strain of lumbar region, sequela | + + documented in this encounter
--- OUTSIDE RECORDS SUMMARY | ~2020-08-10 | XMS | Encounter Summary ---
Demographics + + + | Address | [address] | | | [place] [address] | + + + | Home Phone [...] + + + | Author | [facility] | | | and [place] | + + + | Organization | [facility] | | | [...] Team Providers + +------+ + | Care Community Assistant Name | Role | Phone | + [...] + + | 11/01/ | Office | [facility] | Shay Dietz | Back pain (Primary | | 2012 | Visit | [address]RY [address] | Dx); BACK PAIN, | | | | [address] | [address] [place], [place] | LUMBAR; | | | | [place], [place] | [address] | OSTEOARTHRITIS, | | | | [address] | | LUMBOSACRAL SPINE; | | | | [phone] | | DISC DISEASE, | | | [...] - 11/01/2012 9:06 AM PSTFollow[facility] [...] our off ice. Please also provide a driver education road instructor to take you home on the day [...] [place] | | | | | | [address] | | | | | | | | +--------+---------+ + + + | 09/01/ | Office | Cardiology | Monserrat Weems | | | 2019 | Visit | | [address] | | | | | | [address] | | | | | | [place] [address] | | | | | | [phone] | | | | | | | [...]
--- OUTSIDE RECORDS SUMMARY | ~2020-08-10 | XMS | Encounter Summary ---
Demographics + + + | Address | [address] | | | [place] [address] | + + + | Home Phone | | + + + | Preferred Language | Unknown | + + + | Marital Status | | + + + | Orthodoxy Affiliation | 1013 | + + + | Race | White | + + + | Ethnic Group | Not or | + + + Author + + + | Author | [facility] | | | and [place] | + + + | Organization | [facility] | | | [...] Team Providers + +------+ + | Care Geological Aide Name | Role | Phone | + +------+ + PCP | Unavailable | + +------+ + Encounter Details +--------+ + + + + | Date | Type | Department | Care Team | Description | +--------+ + + + + | 08/31/ | Hospital | [facility] | | | | 2010 | Encounter | [facility] | | | | | | [address] | | | | | | [place] | | | | | | [address] | | | | | | [phone] | | | +--------+ + + + [...] [place] | | | | | | [address] | | | | | | | | +--------+---------+ + + + | 09/01/ | Office | Cardiology | Monserrat Weems | | | 2019 | Visit | | [address] | | | | | | [address] | | | | | | [place] [address] | | | | | | [phone] | | | | | | | [...] 50.3Comment: Testing | 11.0 - 306.9 | [facility] | | | | performed on the Virgilio | ng/mL | [facility] | | | | [facility] | [...] + | [facility] | [address] | [place] | [phone] | | [facility] | | [address] | | | - LABORATORY | | | | + + + + + | [facility] | [address] | [place] | | | [facility] | | [address], [facility] | | | - LABORATORY | | | | + + + + + documented in this encounter Visit Diagnoses Not on filedocumented in this encounter"
--- OUTSIDE RECORDS SUMMARY | ~2020-08-10 | XMS | Encounter Summary ---
Demographics + + + | Address | [address] | | | [place] [address] | + + + | Home Phone [...] Team Providers + +------+ + | Care Assembly Line Robot Operator Name | Role | Phone | + +------+ + | Miquel Calhoun MD | PCP | | + +------+ + Reason for Visit + +--------+ + | Reason | Onset | Comments | | | Date | | + +--------+ + | Appointment | 08/16/ | | | | 2012 | | + +--------+ + Encounter Details +--------+ + + + + | Date | Type | Department | Care Team | Description | +--------+ + + + + | 08/16/ | Telephone | [facility] | Shay Dietz | Appointment | | 2012 | | PHYSIATRY [address] | T[address] | | | | | [address] | [address] | | | | | [place], [place] | [address] | | | | | [address] | | | | | | [phone] | | | +--------+ + + + [...] this encounter Miscellaneous Notes Telephone Encounter - Kylee Wright RN - 08/23/2013 10:44 AM PDTThe patient said she sanchez s not believe there are any changes from her last MRI and does not want to do the MRI at thi s time. I told the patient that if she changes her mind we can get that process going for he r MRI. I relayed the information from Dr. Dietz's note, that this is a process and the nerve block is a step in finding out more information and that it would not provide pain relief fo r very long. I told the patient that the next step would be the RFA which we would have to s chedule at least a week after her block. The patient said she would like to proceed with the Bilat L3 and L4 MBB. Patient said her main concern right now is her back pain. However, she is dealing with othe r health issues as well, including recent "diabetic coma," bladder, and kidney problems. Mali kirk said she will likely be going to a specialist at [facility] in the near future. Patient was scheduled for 09/18/13 with a 1:00 appointment time. Patient was given pre-proc edure instructions. el ephone Encounter - Shay Deitz MD - 08/23/2013 7:24 AM PDTHappy to just do the nerv e block. I was only ordering the MRI because she has had some trauma since the last MRI and I wanted to make sure we weren't missing anything. Remind her that it is still a process to get the procedures done. The first procedure, the medial branch blocks, are only diagnostic and will only give her a few hours of pain relief . Then we wait at least a week before we do the RFA. With the way my schedule is right now it may be a month or more before we get all of that done. If she still wants to pursue that then schedule her for bilateral L3 and L4 medial branch b locks (this targets the L4-L5 facet joints). She could still have the MRI if she would like while she is waiting for all of this. elephone Encounte r - Kylee Wright CMA - 08/21/2013 2:22 PM PDTPatient is wondering if Dr. Dietz thi nks the MRI is necessary at this time or if she can get the nerve block without the MRI. Please advise next step. elephone Arlin - Glory Toledo - 08/21/2013 8:57 AM PDTCall from patient stating she would like to proceed with the nerve block she discussed with Dr Dietz during her a ppointment 08/16/13. Patient states she does not want to obtain the MRI at this time. Please call patient elephone Natty Real 08/16/2013 2:09 PM PDTPatient called wanting to get an inject ion. Patient no longer wants to get an MRI. Patient wants to get the pain to stop. Please ca ll patient. documented in this encounter Plan of Treatment [...] [address] | | | | | | [place] [address] | | | | | | [phone] | | | | | | | | +--------+---------+ + + + documented as of this encounter Visit Diagnoses Not on filedocumented in this encounter
--- OUTSIDE RECORDS SUMMARY | ~2020-08-10 | XMS | Encounter Summary ---
Demographics + + + | Address | [address] | | | [place] [address] | + + + | Home Phone | | + + + | Preferred Language | Unknown | + + + | Marital Status | Single | + + + | Protestant Affiliation | NON | + + + [...] Team Providers + +------+ + | Care Research Associate Quality Control Qc Name | Role | Phone | + [...] | Chest | Referring | MD Jenn[place] [address] | | | | | pressure | Provider Per | [address] | | | | | Procedures | Patient NO | [address] | | | | | DC NEW | REFERRING | [place], [place] | | | | | PATIENT | PROVIDER PER | [address] Phone: | | | | | LEVEL V DC | PT | [phone] | | | | | OFFICE/OUTPT | | Fax: | | | | | | | [phone] | | | | | VISIT,EST,LE | | | | | | | GINA III DC | | | | | | | OFFICE/OUTPT | | | | | | | | | | | | | | VISIT,EST,LE | | | | | | | VL IV DC | | | | | | | [...] | | 2016 | Visit | at [facility] [address] | [address] | unspecified type | | | | [address] [facility] | [address] [facility], | (Primary Dx); | | | | Health and Healing, | [place] [address] | Palpitations | | | | [facility] | [phone] | | | | | Floor [place], [place] | | | | | | [address] | | | | | | [phone] | | | +--------+---------+ + + + [...] test. documented in this encounter Progress Notes Emigdio Blake DO - 03/16/2016 1:57 PM PDTATTENDING NOTE: I saw and evaluated Ms. Rubio with Dr. Fuchs. Management discussed in detail. I agree with the findings, assessment and plan of care as per Dr. Fuchs's note. Emigdio Blake DO Plant Floor Automation Manager Clinical auto radio mechanic/ Division of Cardiovascular Medicine Airam Nicole Md - 03/09/2016 3:27 PM PDT [facility] General Cardiology New Patient Evaluation Patient ID: Ms. Kori Mcintosh-Fawthrop is a 70 y.o. female with hypothyroidism [...] ED. She was then transf erred to [facility] in [facility] where she was put into the [...] every couple of weeks. She comes to [facility] today because she wants a second opinion [...] seen and discussed with my attending, Dr. Emigdio Blake, who agrees with my assessment and plan unless otherwise noted. documented in this encou nter Miscellaneous Notes Addendum Note - Emigdio Blake DO - 03/16/2016 2:12 PM PDT Addended by: EMIGDIO GOULD on: 03/16/2016 02:12 PM Modules accepted: Level of Service documented in this encounter Plan of Treatment + +------+--------+ [...] | + + + + + | [facility] | [address] | [place], [place] | | | | [address] | [address] | | + + + + + documented in this encounter Visit Diagnoses + + | Diagnosis | + + | Chest pain, unspecified type - Primary | + + | Palpitations | + + documented in this encounter
--- OUTSIDE RECORDS SUMMARY | ~2020-08-10 | XMS | Encounter Summary ---
Demographics + + + | Address | [address] | | | [place] [address] | + + + | Home Phone [...] Team Providers + +------+ + | Care Hook Up Name | Role | Phone | + +------+ + | Romy De La Paz MD | PCP | | + +------+ + Reason for Visit + +--------+ + | Reason | Onset | Comments | | | Date | | + +--------+ + | Paperwork | 07/30/ | [facility] | | | 2019 | | + +--------+ + Encounter Details +--------+ + + + + | Date | Type | Department | Care Team | Description | +--------+ + + + + | 07/30/ | Telephone | [facility] | Maykel Hutchins MD | Paperwork ([facility] | | 2018 | | [facility] | [address] | Steve Brink | | | | ORTHOPEDIC SPINE | [place], [place] | Healthcare Orders) | | | | [address] | [address] | | | | | [place] | | | | | | [address] | | | | | | [phone] | | | +--------+ + + + [...] this encounter Miscellaneous Notes Telephone Encounter - Niki Pizarro RN - 08/01/2019 3:20 PM PDTReturned patient's call. Patient is concerned about care after surgery. Patient would like to set up home care now for after surgery. Patient states her insurance will not cover outpatient rehab unless she is in the hospital for 3 days. Patient will need home care after surgery because she lives a long, she does not have good use of her arms and is concerned about having care when she gets home from the hospital. Informed patient that is set up after surgery with the case wo rkkeith in the hospital because it is not know how much care patient will need until after stephanie karuna. Patient would like information sent to Dr. Hutchins. Informed patient I would send a mes ludwig to Dr. Hutchins with patient's concerns. Kori verbalized understanding and agreed with t he plan. elephone Enco supa - Autumn Fuentes - 08/01/2019 10:27 AM PDTKori, is calling again for Paperwork ( [facility]) and would like a call back. Additional Call Details: Patient called again in regards to her Home Care post surgery. S tated that she'd like for Dr Hutchins to have Home Healthcare in [place] to help with post car e. Patient is waiting on a call back to see if Dr Hutchins is able to get this done for her. Haris joseph can be reached at Home Number listed in Chart. elephone Encounter - Elisa Brown - 07/31/2019 2:17 PM Tiffany, is calling again for Paperwork ([facility]) and would like a call back. Additional Call Details: Patient would like to speak with someone as soon as possible abou t her help for care. Please call [phone]. elephone Encounter - Sj Marino - 07/30/2019 11:33 AM Tiffany, is calling regarding Paperwork ([facility]) and would like a call back. Additional Call Details: Calling to get paperwork ready for procedure for [facility] in order to have assistance post-operation with home activities. Contact [facility] at: [phone] Contact patient with status and information at number listed under home in chart. If this is a symptom based call, was patient offered triage? Not Applicable If this is a symptom based call and you were unable to immediately transfer the call to a jose m franco insulation supervisor was caller made aware that if at [...] [place] | | | | | | [address] | | | | | | | | +--------+---------+ + + + | 09/01/ | Office | Cardiology | Monserrat Weems | | | 2019 | Visit | | [address] | | | | | | [address] | | | | | | [place] [address] | | | | | | [phone] | | | | | | | | +--------+---------+ + + + documented as of this encounter Visit Diagnoses Not on filedocumented in this encounter"
--- OUTSIDE RECORDS SUMMARY | ~2020-08-10 | XMS | Encounter Summary ---
Demographics + + + | Address | [address] | | | [place] [address] | + + + | Home Phone [...] + | Author | [facility] | | | and [place] | + + + | Organization | [facility] | | | [...] Team Providers + +------+ + | Care Clock Smith Name | Role | Phone | + +------+ + | Wendi Aiken | PCP | | + +------+ + Encounter Details +--------+ + + + + | Date | Type | Department | Care Team | Description | +--------+ + + + + | 04/06/ | Hospital | [facility] | Nick Martinez, | Lumbar radiculopathy | | 2018 | Encounter | MED CTR XRAY [address] | PA-C [address] | | | | | [place] | [address] [place] | | | | | [place] [address] | [place] [address] | | | | | [phone] | [phone] | | | | | | | | | | | | Dethistler Operator, [facility] | | | | | | [place] | | +--------+ + + + + [...] +---------+ + + | Blood Pressure | 133/68 | 04/06/2018 1:11 PM | | | | | PDT | | + +---------+ + + | Pulse | 84 | 04/06/2018 1:11 PM | | | | | [...] [place] | | | | | | [address] | | | | | | | | +--------+---------+ + + + | 09/01/ | Office | Cardiology | Monserrat Weems | | | 2019 | Visit | | Katty, ENGINE ASSEMBLY SUPERVISOR [address] | | | | | [address] | | | | | | [place] [address] | | | | | | [phone] | | | | | | | | +--------+---------+ + + + + +---------+--------+ + + | Name | Type | Priori | Associated Diagnoses | Order Schedule | | | | ty | | | + +---------+--------+ + + | FL BRITTNEY Lumbar | Imaging | Routin | Lumbar | 1 Occurrences | | Transforaminal | | e | radiculopathy | starting 04/06/2018 | | | | | | until 04/06/2018 | + +---------+--------+ + + documented as of this encounter Visit Diagnoses + + | Diagnosis | + + | Lumbar radiculopathy Thoracic or lumbosacral neuritis or radiculitis, unspecified | + + documented in this encounter Administered Medications + +--------+ +-------+------+------+ | Medication Order | MAR | Action | Dose | Rate | Site | | | Action | Date | | | | + +--------+ +-------+------+------+ | dexamethasone (PF) 10 mg/mL | Given | 04/06/20 | 10 mg | | | | injection 10 mg 10 mg, Other, | | 18 1:20 | | | | | ONCE, [facility] 04/06/18 at 1330, For 1 | | PM PDT | | | | | dose | | | | | | + +--------+ +-------+------+------+ +---+---+ | | | +---+---+ + +-------+ +-------+---+---+ | iohexol (OMNIPAQUE 300) 300 | Given | 04/06/20 | 4 mLs | | | | mg/mL injection 4 mL 4 mL, | | 18 1:18 | | | | | Other, ONCE, [facility] 04/06/18 at 1330, | | PM PDT | | | | | For 1 dose | | | | | | + +-------+ +-------+---+---+ +---+---+ | | | +---+---+ + +-------+ +-------+---+---+ | lidocaine (PF) 1% injection 2 | Given | 04/06/20 | 2 mLs | | | | mL 2 mL, Other, ONCE, [facility] 04/06/18 | | 18 1:20 | | | | | at 1330, For 1 dose | | PM PDT | | | | + +-------+ +-------+---+---+ +---+---+ | | | +---+---+ + +-------+ +-------+---+ + | lidocaine buffered 1.3% | Given | 04/06/20 | 3 mLs | | Other | | injection 3 mL 3 mL, | | 18 1:15 | | | (Comment | | Intradermal, ONCE, [facility] 04/06/18 at | | PM PDT | | | ) | | 1330, For 1 dose | | | | | | + +-------+ +-------+---+ + +---+---+ | | | +---+---+ documented in this encounter"
--- OUTSIDE RECORDS SUMMARY | ~2020-08-10 | XMS | Encounter Summary ---
Demographics + + + | Address | [address] | | | [place] [address] | + + + | Home Phone [...] | + + +---------+ + | Giuseppe Esparzaright | ECON | Unknown | | + + +---------+ + | Nathalia Weinstein | ECON | Unknown | | + + +---------+ + Care Team Providers + +------+ + | Care Bench Hand Name | Role | Phone | [...] | Specialty | Anticoagulati | Diagnoses | Jonathan, | [facility] | | | Services | on | Paroxysmal | DO Zuleyka | Anticoagulati | | | Required | | atrial | [address] | on Clinic | | | | | fibrillation | MIYAS | [address] | | | | | ([facility]) | [address] | [address] | | | | | | [place], [place] | [place], | | | | | | [address] | [place] [address] | | | | | | Phone: | Phone: | | | | | | [phone] | [phone] | | | | | | Fax: | Fax: | | | | | | [phone] | [phone] | +--------+ + + + + + Reason for Visit + + + | Reason | Comments | + + + | Follow-up | stress test / 1 month | + + + Encounter Details +--------+---------+ + + + | Date | Type | Department | Care Team | Description | +--------+---------+ + + + | 04/03/ | Office | [facility] | Zuleyka Castillo DO | Paroxysmal atrial | | 2020 | Visit | CARDIOLOGY GINGER | [address] | fibrillation (HCC) | | | | [address] | [address] [place] | (Primary Dx) | | | | [address] | [address] | | | | | [place] | | | | | | [address] | | | | | | [phone] | | | +--------+---------+ + + + [...] in this encounter Progress Notes Zuleyka Castillo, - 04/03/2020 9:20 AM PDT [facility] Cardiology Follow Up Note Reason for [...] started on Eliquis 5 mg by mo uth twice daily as well as metoprolol tartrate [...] Procedure: KYPHOPLASTY; Surgeon: Alfredo Casillas DO; Location: [facility] MAIN OR; Service: Pa in Management; Laterality: N/A; L5 FRACTURE SURGERY ANKLE HERNIA REPAIR HYSTERECTOMY HYSTERECTOMY LAMINECTOMY N/A 08/03/2019 Procedure: LAMINOTOMY THORACIC / LUMBAR W/ PLACEMENT SPINAL CORD STIMULATOR; Surgeon: Suly Hutchins MD; Location: [facility] MAIN OR OTHER SURGICAL HISTORY EPIDURAL STEROID [...] level: Not on file Occupational History Occupation: [employer] Social Needs Financial resource strain: Not on [...] file Gets together: Not on file Attends jainism service: Not on file Active member of [...] [place] | | | | | | [address] | | | | | | | | +--------+---------+ + + + | 09/01/ | Office | Cardiology | FaustinaMonserrat | | | 2019 | Visit | | [address] | | | | | | [address] | | | | | | [facility] [place] [address] | | | | | | [phone] | | | | | | | | +--------+---------+ + + + + + +--------+ + + | Name | Type | Priori | Associated Diagnoses | Order Schedule | | | | ty | | | + + +--------+ + + | Ambulatory Referral | Outpatient | Routin | Paroxysmal atrial | Ordered: 04/03/2020 | | to [facility] | Referral | e | fibrillation (HCC) [...]
--- OUTSIDE RECORDS SUMMARY | ~2020-08-10 | XMS | Encounter Summary ---
Demographics + + + | Address | [address] | | | [place] [address] | + + + | Home Phone [...] Team Providers + +------+ + | Care Shared Services Representative Name | Role | Phone | + +------+ + | Romy De La Paz MD | PCP | | + +------+ + Encounter Details +--------+ + + + + | Date | Type | Department | Care Team | Description | +--------+ + + + + | 05/19/ | Orders Only | [facility] | Denys Sibley, | Spinal stenosis of | | 2019 | | [facility] | DO [address] | lumbosacral region; | | | | [address]OLOR[address]Y [address] | [place], [place] | Lumbar region | | | | [address] [place] [address] | [address] | somatic dysfunction; | | | | [place], [place] | | Intractable back | | | | [address] | | pain; Degenerative | | | | [phone] | | lumbar spinal | | | | | | stenosis; Chronic | | | | | | pain disorder | +--------+ + + + + Social [...] [address] | | | | | | [place] | | | | | | [address] | | | | | | | | +--------+---------+ + + + | 09/01/ | Office | Cardiology | Monserrat Weems | | | 2019 | Visit | | [address] | | | | | | [address] | | | | | | [place] [address] | | | | | | [phone] | | | | | | | [...] disorder Chronic pain syndrome | + + documented in this encounter"
--- OUTSIDE RECORDS SUMMARY | ~2020-08-10 | XMS | Encounter Summary ---
Demographics + + + | Address | [address] | | | [place] [address] | + + + | Home Phone [...] Providers + +------+ + | Care Chemical Analytical Sampler Name | Role | Phone | + +------+ + | Wendi Aiken | PCP | | + +------+ + Encounter Details +--------+ + + + + | Date | Type | Department | Care Team | Description | +--------+ + + + + | 07/12/ | Hospital | [facility] | Sj Valdes MD | Left lumbar | | 2017 | Encounter | MED CTR XRAY [address] | [address] | radiculopathy; DISC | | | | [place] | [place] [address] | DISEASE, LUMBAR; | | | | [place] [address] | [phone] | Back pain, | | | | [phone] | | unspecified back | | | [...] | | | | | | [place] | | | | | | [address] | | | | | | | | +--------+---------+ + + + | 09/01/ | Office | Cardiology | Monserrat Weems | | | 2019 | Visit | | [address] | | | | | | [address] | | | | | | [place] [address] | | | | | | [phone] | | | | | | | [...]
--- OUTSIDE RECORDS SUMMARY | ~2020-08-10 | XMS | Encounter Summary ---
Demographics + + + | Address | [address] | | | [place] [address] | + + + | Home Phone | | + + + | Preferred Language | Unknown | + + + | Marital Status | | + + + | Worship Affiliation | 1013 | + + + [...] Team Providers + +------+ + | Care Brand Marketing Manager Name | Role | Phone | + +------+ + | Romy De La Paz MD | PCP | | + +------+ + Reason for Visit +--------+--------+ + | Reason | Onset | Comments | | | Date | | +--------+--------+ + | Other | 08/31/ | patient trying to reach Dr. Sibley's office | | | 2018 | | +--------+--------+ + Encounter Details +--------+ + + + + | Date | Type | Department | Care Team | Description | +--------+ + + + + | 08/31/ | Telephone | [facility] | Niki Pizarro, | Other (patient | | 2018 | | NEUROSURGERY [address] | RN | trying to reach | | | | [address] | | Toñito's office) | | | | [place] | | | | | | [address] | | | | | | [phone] | | | +--------+ + + + [...] Telephone Encounter - Niki Pizarro RN - 08/31/2019 4:17 PM PDTPatient calling to speak with Dr. Sibley's office, call center transferred the call to Dr. Hutchins's office. Transfer red patient to Dr. Sibley's office . documented in this encounter Plan of Treatment [...] [address] | | | | | | [place] [address] | | | | | | [phone] | | | | | | | | +--------+---------+ + + + documented as of this encounter Visit Diagnoses Not on filedocumented in this encounter"
--- OUTSIDE RECORDS SUMMARY | ~2020-08-10 | XMS | Encounter Summary ---
Demographics + + + | Address | [address] | | | [place] [address] | + + + | Home Phone | | + + + | Preferred Language | Unknown | + + + | Marital Status | Single | + + + | Muslim Affiliation | NON | + + + | Race | White | + + + | Ethnic Group | Not or | + + + Author + + + | Author | [facility] | + + + | Organization | [facility] | + + + | Address | Unknown | + + + | Phone | Unavailable | + + + Support + + +---------+ + | Name | Relationship | Address | Phone | + + +---------+ + | Royce [place]chaca | ECON | Unknown | | + + +---------+ + Care Team Providers + +------+ + | Care Gluing Machine Operator Automatic Name | Role | Phone | + +------+ + | Miquel Calhoun MD | PCP | | + +------+ + Encounter Details +--------+ + + + + | Date | Type | Department | Care Team | Description | +--------+ + + + + | 10/18/ | Telephone [facility] | Khushbu Cortez, | | | 2012 | | [facility] | [place], [place] | | | | | [address] | [address] | | | | | [address] | | | | | | [address], [address] [place] [address] | | | | | | [place], [place] | | | | | | [address] | | | | | | [phone] | | | +--------+ + + + [...] this encounter Miscellaneous Notes Telephone Encounter - Khushbu Cortez LCSW - 10/18/2013 1:37 PM PSTInformed patient that I received her message and have asked Jaky Kennedy to send her the appropriate paperwork. P t said she did not lose paperwork, but rather, believes that she will need different paperwo rk than what she already has, for her next appt. Pt appreciative of call back. Khushbu LEDBETTERW documented in this encounter Plan of Treatment Not on filedocumented as of this encounter Visit Diagnoses Not on filedocumented in this encounter"
--- OUTSIDE RECORDS SUMMARY | ~2020-08-10 | XMS | Encounter Summary ---
Demographics + + + | Address | [address] | | | [place] [address] | + + + | Home Phone [...] Team Providers + +------+ + | Care Try Out Person Name | Role | Phone | + +------+ + | Wendi Aiken | PCP | | + +------+ + Reason for Visit + + + | Reason | Comments | + + + | Neck Pain | | + + + | Head Pain | | + + + Encounter Details +--------+ + + + + | Date | Type | Department | Care Team | Description | +--------+ + + + + | 04/25/ | Emergency | [facility] | Billy Romo, | Concussion, without | | 2016 | | HOSPITAL EMERGENCY | [facility] | LOC, initial | | | | [place] [address] [facility] | [place], | encounter (Primary | | | | [facility], [place] | [place] [address] | Dx); Cervical | | | | [address] | [phone] | strain, acute, | | | | [phone] | | initial encounter | +--------+ + + + + Social [...] + + + | Blood Pressure | 112/64 | 04/25/2017 8:20 PM | | | | | PDT | | + + + + + | Pulse | 71 | 04/25/2017 8:20 PM | | | | | PDT | | + + + + + | Temperature | 36.8 C (98.2 F) | 04/25/2017 7:13 PM | | | | | PDT | | + + + + + | Respiratory Rate | 16 | 04/25/2017 8:20 PM | | | | | PDT | | + + + + + | Oxygen Saturation | 97% | 04/25/2017 8:20 PM | | | | | PDT | | + + + + + | Inhaled Oxygen | - | - | | | Concentration | | | | + + + + + | Weight | 61.2 kg (135 lb) | 04/25/2017 7:13 PM | | | | | PDT | | + + + + + | Height | 157.5 cm (5' 2") | 04/25/2017 7:13 PM | | | | | PDT | | + + + + + | Body Mass Index | 24.69 | 04/25/2017 7:13 PM | | | | | PDT | | + + + + + documented in this encounter Discharge Instructions AttachmentsThe following attachments cannot be sent through Care Everywhere.CERVICAL STRAIN , UNDERSTANDING (CAMEROONIAN)CONCUSSION, AFTER (CAMEROONIAN)CONCUSSION, COPING WITH (CAMEROONIAN)manish disla in this encounter Medications at Time of [...] documented as of this encounter ED Notes Billy Romo MD - 04/25/2017 7:23 PM PDTFormatting of this note might be different f rom the original. History Chief Complaint Patient presents with Neck Pain Head Pain 71 yo female with PMHx of Dm, HTN, asthma, CVA, depression who presents for traumatic head injury with a soft rubber ball about 30 mins CHARGER TESTER. Patient reports mild confusion, headache l ocated at the vertex of her head that is constant and without exacerbating or relieving fact ors and some neck pain. Patient reports difficulty with word finding. She denies LOC, Nause a, vomiting, visual changes, tingling, numbness or weakness. She reports no anti-coagulation . Previous Medications ALBUTEROL 5 MG/ML NEBULIZER SOLUTION Take 2.5 mg by nebulization every 6 hours as neede d. AMLODIPINE (NORVASC) 5 MG TABLET Take 5 mg by mouth Daily. CLONAZEPAM (KLONOPIN) 2 MG TABLET Take 1 mg by mouth Twice daily as needed. DIAZEPAM (VALIUM) 10 MG TABLET Take 0.5 tablets by mouth every 6 hours as needed. HYDROCODONE-ACETAMINOPHEN (NORCO) 10-325 MG PER TABLET Take 1 tablet by mouth every 6 h ours as needed. IBUPROFEN (ADVIL,MOTRIN) 600 MG TABLET Take 600 mg by mouth every 6 hours as needed for Pain. IPRATROPIUM (ATROVENT) 500 MCG/2.5 ML NEBULIZER SOLUTION Take 0.5 mg by nebulization 4 times daily. LACTOBACILLUS (PROBIOTIC ACIDOPHILUS PO) Take 1 tablet by mouth Daily. LEVOTHYROXINE (SYNTHROID, LEVOTHROID) 112 MCG TABLET Take 0.88 mcg by mouth every morni ng (before breakfast). LORATADINE 10 MG CAPS Take by mouth. MULTIPLE VITAMIN (MULTI-VITAMIN PO) Take 1 capsule by mouth Daily. RANITIDINE (ZANTAC) 150 MG CAPSULE Take 150 mg by mouth as needed. ROPINIROLE HCL (REQUIP XL) 6 MG TB24 Take 4.5 mg by mouth as needed. She is allergic to lorazepam; morphine; and zolpidem.. 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 12/19/2013 GERD (gastroesophageal reflux disease) Hepatitis A History of stroke History of suicide attempt Hypertension Hypothyroidism Incontinence Insomnia Irritable bowel syndrome Kidney failure Left lumbar radiculopathy 11/01/2012 Feet Nausea and vomiting PTSD (post-traumatic stress disorder) Restless leg syndrome Scoliosis of lumbar spine 04/17/2014 Past Surgical History: Procedure Laterality Date BREAST SURGERY LUMPECTOMY CHOLECYSTECTOMY COLONOSCOPY 2009 CYSTOCELE REPAIR FRACTURE SURGERY ANKLE HYSTERECTOMY SLING REMOVAL , BLADDER Family History Problem Relation Age of Onset Diabetes Mother Arthritis Mother Heart disease Mother Kidney disease Mother of kidney failure at 55. Cancer Sister Lung cancer Father at the age of 42. Alcohol abuse Father Social History Social History Marital status: Spouse name: N/A Number of children: N/A Years of education: N/A Social History Main Topics Smoking status: Never Smoker Smokeless tobacco: Never Used Alcohol use Yes Comment: OCCASIONAL Drug use: No Sexual activity: No Other Topics Concern None Social History Narrative None Review of Systems Constitutional: Negative for fever. HENT: Negative for congestion and tinnitus. Eyes: Negative for visual disturbance. Respiratory: Negative for shortness of breath. Cardiovascular: Negative for chest pain. Gastrointestinal: Negative for abdominal pain. Genitourinary: Negative for difficulty urinating. Musculoskeletal: Positive for back pain (chronic low back pain). Skin: Negative for rash. Neurological: Positive for dizziness, light-headedness and headaches. Negative for weakness and numbness. Psychiatric/Behavioral: Positive for confusion. Physical Exam BP 118/62 | Pulse 78 | Temp 36.8 C (98.2 F) (Tympanic) | Resp 20 | Ht 1.575 m (5' 2 ") | Wt 61.2 kg (135 lb) | BMI 24.69 kg/m Physical Exam Constitutional: She appears well-developed and well-nourished. HENT: Head: Normocephalic and atraumatic. Right Ear: External ear normal. Left Ear: External ear normal. Nose: Nose normal. Mouth/Throat: Oropharynx is clear and moist. Eyes: EOM are normal. Pupils are equal, round, and reactive to light. Right eye exhibits no nystagmus. Left eye exhibits no nystagmus. Neck: Spinous process tenderness and muscular tenderness present. Cardiovascular: Normal rate, regular rhythm and normal heart sounds. Pulmonary/Chest: Effort normal and breath sounds normal. Abdominal: Soft. Bowel sounds are normal. Musculoskeletal: Normal range of motion. She exhibits no edema, tenderness or deformity. Neurological: She is alert. No cranial nerve deficit. Skin: Skin is warm and dry. ED Course Procedures Recent Results (from the past 24 hour(s)) CBC with Differential Result Value Ref Range WBC 6.1 >4.5-<11.0 K/uL RBC 4.36 (L) 4.50 - 6.00 M/uL Hgb 12.9 >12.4-<15.7 g/dL Hct 37.8 >37.7-<47.0 % MCV 86.7 78.0 - 98.0 fL MCH 29.6 26.0 - 32.0 pg MCHC 34.1 31.0 - 36.0 g/dL RDW-CV 12.9 12.0 - 15.0 % Platelet Count 351 >140-<440 K/uL MPV 9.1 fL % Neutrophils 48.4 37.0 - 80.0 % % Lymphocytes 39.1 10.0 - 50.0 % % Monocytes 9.8 0.0 - 12.0 % % Eosinophils 2.0 0.0 - 7.0 % % Basophils 0.5 0.0 - 2.5 % Absolute Neutrophils 2.98 1.67 - 8.80 K/uL Absolute Lymphocytes 2.40 0.60 - 3.40 K/uL Absolute Monocytes 0.60 0.00 - 4.00 K/uL Absolute Eosinophils 0.12 0.00 - 2.50 K/uL Absolute Basophils 0.03 0.00 - 0.20 K/uL Comprehensive Metabolic Panel Result Value Ref Range NA 139 135 - 144 mmol/L K 3.6 >3.3-<5.8 mmol/L CL 104 >95-<108 mmol/L CO2 26 23 - 34 mmol/L ANION GAP 9 7 - 16 mmol/L GLUCOSE 99 70 - 110 mg/dL BUN 21 5 - 26 mg/dL Creatinine, Serum/Plasma 0.83 >.60-<1.30 mg/dL eGFR if not >60 >=60 mL/min/1.73m2 CALCIUM 8.2 (L) 8.3 - 10.0 mg/dL ALBUMIN 3.8 3.0 - 4.5 g/dL BILIRUBIN TOTAL 0.3 0.0 - 1.0 mg/dL Total protein 6.8 6.6 - 8.5 g/dL AST 19 16 - 38 U/L ALT 31 18 - 63 U/L ALK PHOS 68 50 - 136 U/L GLOBULIN 3.0 1.5 - 3.5 g/dL Albumin/Globulin ratio 1.3 1.0 - 2.5 BUN/CREA 25.3 (H) 7.0 - 24.0 Protime INR Result Value Ref Range PROTIME 10.2 10.0 - 12.0 seconds INR 0.93 >.00-<2.00 [facility] Medical Decision Making 71 yo female with DM who presents for traumatic head injury, no LOC but reports dizziness, headache and mild confusion. No LOC, vomiting, no other neurological complaints. She also re ports mid cervical pain. Exam: vital signs stable and mild tenderness to the vertex of head and mid cspine tendernes s. Neurological in tact Cn, upper and lower extremities. Ddx: concussion, contusion, ICH, cervical fracture, central cord syndrome, hypoglycemia. Plan: will check labs, CT head and CT spine 2018. Patient with no acute injures or abnormalities seen on Ct and blood work all without emergent problems Patient feeling better and no more confusion or dizziness. She feels tanner dy to go home. I instructed patient and family on worrisome symptoms to return for and she can f/u with PMD in 2-3 days. ICD-10-CM ICD-9-CM 1. Concussion, without LOC, initial encounterAcute S06.0X0A 850.0 2. Cervical strain, acute, initial encounterAcute S16.1XXA 847.0 Disposition: DISCHARGE TO HOME Condition: stable Billy Romo MD 04/25/172037 documented in this encounter Miscellaneous Notes ED Triage Notes - Ashleigh Garcia RN - 04/25/2017 7:10 PM PDTApprox. Half hour ago pt got hit on the top of her head with a kick ball at the baseball [place]. Pt has point tendernes s to her C-Spine, vista collar applied on arrival. Pt is having difficulty finding words. Pupils are equal and reactive bilat approx 3cm. Pt deneis taking any blood thinners, states she take ibuprofen for chronic lower back pain. Seems a bit drowsy. documented in this encounter Plan of Treatment +--------+---------+ + + + | Date | Type | Specialty | Care Team | Description | +--------+---------+ + + + | 08/20/ | Office | Pain Medicine | Denys Sibley, | | | 2019 | Visit | | DO [address] | | | | | | [place] | | | | | | [phone] | | | | | | | | +--------+---------+ + + + | 09/01/ | Office | Cardiology | Anaelisha Monserrat | | | 2020 | Visit | | [address] | | | | | | [address] | | | | | | [place] [address] | | | | | | [phone] | | | | | | | | +--------+---------+ + + + + +------+--------+ + + | Name | Type | Priori | Associated Diagnoses | Date/Time | | | | ty | | | + +------+--------+ + + | ED INFORMATION | SYLVIE | Routin | | 04/25/2017 7:03 PM | | EXCHANGE | | e | | PDT | + +------+--------+ + + documented as of this encounter Procedures + +--------+ + + + | Procedure Name | Priori | Date/Time | Associated Diagnosis | Comments | | | ty | | | | + +--------+ + + + | CT CERVICAL SPINE WO | STAT | 04/25/2017 | | Results for this | | CONTRAST | | 8:03 PM | | procedure are in the | | | | PDT | | results section. | + +--------+ + + + | CT HEAD WO CONTRAST | STAT | 04/25/2017 | | Results for this | | | | 8:02 PM | | procedure are in the | | | | PDT | | results section. | + +--------+ + + + | PROTIME INR | STAT | 04/25/2017 | | Results for this | | | | 7:20 PM | | procedure are in the | | | | PDT | | results section. | + +--------+ + + + | CBC WITH | STAT | 04/25/2017 | | Results for this | | DIFFERENTIAL | | 7:20 PM | | procedure are in the | | | | PDT | | results section. | + +--------+ + + + | COMPREHENSIVE | STAT | 04/25/2017 | | Results for this | | METABOLIC PANEL | | 7:20 PM | | procedure are in the | | | | PDT | | results section. | + +--------+ + + + | ED INFORMATION | Routin | 04/25/2017 | | | | EXCHANGE | e | 7:03 PM | | | | | | PDT | | | + +--------+ + + + +---+--------+ | | | | | Proced | | | ure | | | Note - | | | Doug, | | | Lab In | | | | | | Hlseve | | | n - | | | // | | | 2017 | | | 7:04 | | | PM PDT | | [...] | | | FICATI | | | ON?[birth year] | | | [birth year] | | | 7 | | | 19:02? | | | DOHERT | | | Y-FAWT | | | HROP, | | | KORI | | | | | | L?MRN: | | | | | | [id number] | | | [id number] | | | his | | | patien | | | t has | | | regist | | | ered | | | at the | | | | | | [facility] a [facility] | | [facility] | | | al | | | Emerge | | | ncy | | | Depart | | | ment | | | For | | | more | | | inform | | | ation | | | visit: | | | | | | https: | | | //prov | | | .ediec | | | arepla | | | [email or web address].com/ | | | patien | | | t/0164 | | | [email or web address] | | | [phone] | | | [phone] | | | [phone] | | | [id number] | | | be ED | | | Care | | [...] | | | system | | | .Recen | | | t | | | Emerge | | | ncy | | | Depart | | | ment | | | Visit | | | [facility] | | | yAdmit | | | Date | | | Discha | | | rge | | | Date | | | Discha | | | rge | | | Dispos | | | ition | | | Facili | | | ty | | | City | | | State | | | Type | | | Major | | | Type | | | Diagno | | | ses or | | | Chief | | | | | | Compla | | | int | | | [facility] | | | 26, | | | 2017 | | | | | | [facility] | | | a | | | [facility] | | | [facility] | | [place] | | | [place]ge | | | ncy | | | Emerge | | | ncy | | | Head | | | trauma | | | [facility] | | | 9, | | | 2017 | | | [facility] 9, | | | 2017 | | | Discha | | | rged | | | to | | | home | | | or | | | self | | | care | | | (routi | | | ne | | | discha | | | rge) | | | [facility] [place] [facility] | | | [place] | | | [place] | | | Emerge | | | ncy | | | Emerge | | | ncy | | | Major | | | | | | depres | | | [...] status | | | | | | Type 2 | | | | | | diabet | | | es | | | mellit | | | us | | | withou | | | t | | | compli | | | cation | | | s | | | Allerg | | | y | | | status | | | to | | | narcot | | | ic | | | agent | | | status | | | | | | Long | | | term | | | (curre | | | nt) | | | use of | | | | | | aspiri | | | n | | | Chroni | | | c | | | obstru | | | ctive | | | pulmon | | | lonnie | | | diseas | | | e, | | | unspec | | | ified | | | [facility] | | | 3, | | | 2017 | | | [facility] 3, | | | 2017 | | | Discha | | | rged | | | to | | | home | | | or | | | self | | | care | | | (routi | | | ne | | | discha | | | rge) | | | Provid | | | ence | | | [facility] | | | [facility] [place] | | | [place] | | | Emerge | | | ncy | | | Emerge | | | ncy | | | | | | dehydr | | | ated, | | | weak, | | | diabet | | | ic | | | Acute | | | stress | | | | | | reacti | | | on | | | E.D. | | | Visit | | | Count | | | (12 | | | mo.)Fa | | | cility | | | | | | Visits | | | | | | [facility] | | | a | | | [facility] | | | al | | | Hospit | | | al 1 | | | Provid | | | ence | | | St[facility] | | | [facility] | | | Med[facility] | | | l | | | Center | | | [facility] [place] | | | y | | | Hospit | | | al 4 | | | Total | | | 6 | | | Note: | | | Visits | | | | | | indica | | | te | | | total | | | known | | | visits | | | . | | | Recent | | | | | | Inpati | | | ent | | | Visit | | | [facility] | | | yNo | | | record | | | ed | | | inpati | | | ent | | | visits | | | . Care | | | | | | Provid | | | ersPro | | | vider | | | PRC | | | Type | | | Phone | | | Fax | | | Servic | | | e | | | Dates | | | [place] | | | Johnso | | | n, | | | OPTICS ENGINEER, | | | OPTICS ENGINEER | | | Primar | | | y Care | | | (541) | | | | | | [phone] | | | 35 | | | (541) | | | [phone] | | | 97 | | | Curren | | | t | | | Criter | | | ia met | | | 5 | | | Visits | | | In 12 | | | | | | Months | | | 3 | | | Facili | | | ties | | | In | | | 90Know | | | n | | | Aliase | | | sNo | | | known | | | aliase | | | s. The | | | above | | | | | | inform | | | [...] | | | ? | | | 2017 | | | [place] | | | [...] | +---+--------+ documented in this encounter Results CT Cervical Spine wo Contrast (04/25/2017 8:03 PM PDT) + + | Specimen | + + | | + + + + + | Narrative | Performed At | + + + | [address] | | | [place], [place] [address] | | | NAME: KORI HARMON DATE: 04/25/2017 | | | : 1945 PT GENDER: F ROOM: ER PHYSICIAN: | | | BILLY ROMO PID#: [id number] CC TO: MR#: | | | PROCEDURE: CT CERVICAL SPINE WITHOUT CONTRAST INDICATIONS: | | | Neck pain from being hit by a baseball. COMPARISON: None. | | | TECHNIQUE: Thin helical CT images were obtained from the | | | skull base to the level of the upper thoracic spine. Sagittal and | | | coronal reformations were obtained. One or more of the following | | | dose lowering techniques was utilized: Automated exposure control, | | | adjustment of the mA and/or kV according to patient size, or use of | | | iterative reconstruction. FINDINGS: The odontoid | | | process appears intact. Lateral masses of C1 appear in anatomic | | | alignment in relation to the body of C2. There is bony fusion of the | | | anterior and posterior elements of C2 and C3 with facet arthrosis at | | | the C3-C4 facet joints bilaterally. No acute fracture lucency or | | | dislocation seen. Osteopenia. Linear scarring is present at the | | | left apex with adjacent traction bronchiectasis. No significant | | | canal compromise seen. IMPRESSION: 1. No acute fracture | | | or dislocation identified. 2. Osteopenia. There is bony fusion of | | | the anterior and posterior elements of C2 and C3 with facet | | | arthrosis at the C3-C4 facet joints bilaterally. Dictated | | | by: Akshat Esparza MD on 04/25/2017 at 20:07 Transcribed by: MM | | | on 04/26/2017 at 8:41 | | + + + + + | Procedure Note | + + | Doug, Rad Results In - 04/27/2017 9:10 AM PDT [facility] | | [address] | | [place], [place] [address] | | | | | | NAME: KORI HARMNO DATE: 04/25/2017 | | : 1945 PT GENDER: F ROOM: ER | | PHYSICIAN: BILLY ROMO PID#: [id number] | | CC TO: MR#: | | | | PROCEDURE: CT CERVICAL SPINE WITHOUT CONTRAST | | | | INDICATIONS: Neck pain from being hit by a baseball. | | | | COMPARISON: None. | | | | TECHNIQUE: Thin helical CT images were obtained from the skull base to the | | level of the upper thoracic spine. Sagittal and coronal reformations were | | obtained. One or more of the following dose lowering techniques was utilized: | | Automated exposure control, adjustment of the mA and/or kV according to | | patient size, or use of iterative reconstruction. | | | | | | FINDINGS: | | The odontoid process appears intact. Lateral masses of C1 appear in | | anatomic alignment in relation to the body of C2. There is bony fusion of the | | anterior and posterior elements of C2 and C3 with facet arthrosis at the | | C3-C4 facet joints bilaterally. No acute fracture lucency or dislocation | | seen. Osteopenia. Linear scarring is present at the left apex with adjacent | | traction bronchiectasis. No significant canal compromise seen. | | | | IMPRESSION: | | 1. No acute fracture or dislocation identified. | | 2. Osteopenia. There is bony fusion of the anterior and posterior elements of | | C2 and C3 with facet arthrosis at the C3-C4 facet joints bilaterally. | | | | | | | | Dictated by: Akshat Esparza MD on 04/25/2017 at 20:07 | | Transcribed by: SHELLI on 04/26/2017 at 8:41 | | | | | | | | | | | + + CT Head wo Contrast (04/25/2017 8:02 PM PDT) + + | Specimen | + + | | + + + + + | Narrative | Performed At | + + + | [address] | | | [place], [place] [address] | | | NAME: KORI HARMON DATE: 04/25/2017 | | | : 1945 PT GENDER: F ROOM: ER PHYSICIAN: | | | BILLY ROMO PID#: [id number] CC TO: MR#: | | | PROCEDURE: CT BRAIN WITHOUT CONTRAST INDICATIONS: | | | Hit back side of head by baseball. COMPARISON: None. | | | TECHNIQUE: CT images were obtained at the skull base, and | | | thin-section images were obtained through the brain without | | | intravenous contrast. One or more of the following dose lowering | | | techniques was utilized: Automated exposure control, adjustment of | | | the mA and/or kV according to patient size, or use of iterative | | | reconstruction. FINDINGS: CEREBRUM: No evidence of acute | | | infarct, hemorrhage or mass lesion. The joshi-white matter | | | junction appears intact. Mild hypodensities are present in the | | | cerebral white matter compatible with small vessel ischemic changes. | | | There is dilated perivascular space subadjacent to the right | | | lentiform nucleus. CEREBELLUM: Normal. BRAIN STEM: | | | Normal. VENTRICLES: Normal. EXTRA-AXIAL SPACES: Normal. | | | SINUSES: Normal. SKULL: Normal. BONES: Degenerative | | | osteophytic change of the TMJs bilaterally, right greater than left. | | | IMPRESSION: No CT evidence of acute | | | intracranial abnormality. Mild small vessel ischemic changes are | | | present in the cerebral white matter. Dilated perivascular space | | | noted subadjacent to the right lentiform nucleus, incidental. No | | | acute fracture or dislocation identified. Dictated by: Akshat Fuller | | | MD Isaias on 04/25/2017 at 20:05 Transcribed by: SHELLI on 04/26/2017 | | | at 8:44 | | + + + + + | Procedure Note | + + | Doug, Rad Results In - 04/27/2017 9:10 AM PDT [facility] | | [address] | | [place], [place] [address] | | | | | | NAME: KORI HARMON DATE: 04/25/2017 | | : 1945 PT GENDER: F ROOM: ER | | PHYSICIAN: BILLY ROMO PID#: [id number] | | CC TO: MR#: | | | | PROCEDURE: CT BRAIN WITHOUT CONTRAST | | | | INDICATIONS: Hit back side of head by baseball. | | | | COMPARISON: None. | | | | TECHNIQUE: CT images were obtained at the skull base, and thin-section | | images were obtained through the brain without intravenous contrast. One or | | more of the following dose lowering techniques was utilized: Automated | | exposure control, adjustment of the mA and/or kV according to patient size, | | or use of iterative reconstruction. | | | | | | FINDINGS: | | CEREBRUM: No evidence of acute infarct, hemorrhage or mass lesion. The | | joshi-white matter junction appears intact. Mild hypodensities are present in | | the cerebral white matter compatible with small vessel ischemic changes. | | There is dilated perivascular space subadjacent to the right lentiform | | nucleus. | | CEREBELLUM: Normal. | | BRAIN STEM: Normal. | | VENTRICLES: Normal. | | EXTRA-AXIAL SPACES: Normal. | | SINUSES: Normal. | | SKULL: Normal. | | BONES: Degenerative osteophytic change of the TMJs bilaterally, right | | greater than left. | | | | IMPRESSION: | | | | | | No CT evidence of acute intracranial abnormality. Mild small vessel | | ischemic changes are present in the cerebral white matter. Dilated | | perivascular space noted subadjacent to the right lentiform nucleus, | | incidental. No acute fracture or dislocation identified. | | | | Dictated by: Akshat Esparza MD on 04/25/2017 at 20:05 | | Transcribed by: MM on 04/26/2017 at 8:44 | | | | | | | + + Protime INR (04/25/2017 7:20 PM PDT) + + + + + + | Component | Value | Ref Range | Performed | Pathologist | | | | | At | Signature | + + + + + + | Prothrombin | 10.2Comment: PROTIME: | 10.0 - 12.0 | [facility] | | | Time | | seconds | [facility] | | | [facility] | [facility] | | | | | | LABORATORY | | + + + + + + | INR | 0.93Comment: INR: | >.00-<2.00 | [facility] | | | | | | [facility] | | | | | | [facility] | | | | | | LABORATORY | | + + + + + + + + | Specimen | + + | Blood | + + + + + + + | Performing | Address | City/State/Zipcode | Phone Number | | Organization | | | | + + + + + | [facility] | [address] | [place], [place] | [phone] | | HOSPITAL LAB[facility]ATORY | | [address] | | + + + + + Comprehensive Metabolic Panel (04/25/2017 7:20 PM PDT) + + + + + + | Component | Value | Ref Range | Performed | Pathologist | | | | | At | Signature | + + + + + + | Na | 139 | 135 - 144 | [facility] | | | | | mmol/L | [facility] | | | | | | [facility] | | | | | | LABORATORY | | + + + + + + | K | 3.6 | >3.3-<5.8 | [facility] | | | | | mmol/L | COMMUN[facility] | | | | | | [facility] | | | | | | LABORATORY | | + + + + + + | Cl | 104 | >95-<108 mmol/L | [facility] | | | | | | [facility] | | | | | | [facility] | | | | | | LABORATORY | | + + + + + + | CO2 | 26 | 23 - 34 mmol/L | [facility] | | | | | | [facility] | | | | | | [facility] | | | | | | LABORATORY | | + + + + + + | Anion Gap | 9 | 7 - 16 mmol/L | [facility] | | | | | | [facility] | | | | | | [facility] | | | | | | LABORATORY | | + + + + + + | Glucose | 99 | 70 - 110 mg/dL | [facility] | | | | | | [facility] | | | | | | [facility] | | | | | | LABORATORY | | + + + + + + | BUN | 21 | 5 - 26 mg/dL | [facility] | | | | | | [facility] | | | | | | [facility] | | | | | | LABORATORY | | + + + + + + | Creatinine | 0.83 | >.60-<1.30 | [facility] | | | | | mg/dL | [facility] | | | | | | HOSPITAL | | | | | | LABORATORY | | + + + + + + | eGFR, | >60Comment: GLOMERULAR | >=60 | [facility] | | | non- | FILTRATION | mL/min/1.73m2 | [facility] | | | [place] | RATE,ESTIMATED | | HOSPITAL | | | | mL/min/1.71x3Wldx than | | LABORATORY | | | [...] + + + + | Calcium | 8.2 (L) | 8.3 - 10.0 | [facility] | | | | | mg/dL | [facility] | | | | | | [facility] | | | | | | LABORATORY | | + + + + + + | Albumin | 3.8 | 3.0 - 4.5 g/dL | [facility] | | | | | | COMM[facility] | | | | | | [facility] | | | | | | LABORATORY | | + + + + + + | Bilirubin | 0.3 | 0.0 - 1.0 mg/dL | [facility] | | | Total | | | COMM[facility] | | | | | | [facility] | | | | | | LABORATORY | | + + + + + + | Total | 6.8 | 6.6 - 8.5 g/dL | [facility] | | | Protein | | | COMMUNITY | | | | | | [facility]OSP[facility] | | | | | | LABORATORY | | + + + + + + | AST | 19 | 16 - 38 U/L | [facility] | | | | | | COMM[facility] | | | | | | [facility] | | | | | | LABORATORY | | + + + + + + | ALT | 31 | 18 - 63 U/L | [facility] | | | | | | COMM[facility] | | | | | [facility] | | | | | | LABORATORY | | + + + + + + | Alkaline | 68 | 50 - 136 U/L | [facility] | | | Phosphatase | | | COMMUNITY | | | | | | HOSPITAL | | | | | | LABORATORY | | + + + + + + | Globulin | 3.0 | 1.5 - 3.5 g/dL | [facility] | | | | | | [facility] | | [facility] | | [facility] | | | | | | LABORATORY | | + + + + + + | Albumin/Janey | 1.3 | 1.0 - 2.5 | [facility] | | | bulin Ratio | | | COMM[facility] | | | | | | [facility] | | | | | | LABORATORY | | + + + + + + | BUN/Creatin | 25.3 (H) | 7.0 - 24.0 | [facility] | | | ine Ratio | | | [facility] | | | | | | [facility] | | | | | | LABORATORY | | + + + + + + + + | Specimen | + + | Blood | + + + + + + + | Performing | Address | City/State/Zipcode | Phone Number | | Organization | | | | + + + + + | [facility] | [address] | [place], [place] | [phone] | | HOSPITAL LABORATORY | | [address] | | + + + + + CBC with Differential (04/25/2017 7:20 PM PDT) + + + + + + | Component | Value | Ref Range | Performed | Pathologist | | | | | At | Signature | + + + + + + | White Blood | 6.1 | >4.5-<11.0 K/uL | [facility] | | | Cells | | | COMMUNITY | | | | | | [facility]PITAL | | | | | | LABORATORY | | + + + + + + | Red Blood | 4.36 (L) | 4.50 - 6.00 | [facility] | | | Cells | | M/uL | COMMUNITY | | | | | | HOSPITAL | | | | | | LABORATORY | | + + + + + + | Hemoglobin | 12.9 | >12.4-<15.7 | [facility] | | | | | g/dL | COMMUNITY | | | | | | HOS[facility] | | | | | | LABORATORY | | + + + + + + | Hematocrit | 37.8 | >37.7-<47.0 % | [facility] | | | | | | [facility] | | | | | | [facility] | | | | | | LABORATORY | | + + + + + + | MCV | 86.7 | 78.0 - 98.0 fL | [facility] | | | | | | COMM[facility] | | | | | | [facility] | | | | | | LABORATORY | | + + + + + + | MCH | 29.6 | 26.0 - 32.0 pg | [facility] | | | | | | [facility] | | | | | | [facility] | | | | | | LABORATORY | | + + + + + + | MCHC | 34.1 | 31.0 - 36.0 | [facility] | | | | | g/dL | COMM[facility] | | | | | | [facility] | | | | | | LABORATORY | | + + + + + + | RDW-CV | 12.9 | 12.0 - 15.0 % | [facility] | | | | | | COMM[facility] | | | | | | [facility] | | | | | | LABORATORY | | + + + + + + | Platelet | 351 | >140-<440 K/uL | [facility] | | | Count | | | COMM[facility] | | | | | | [facility]OSP[facility] | | | | | | LABORATORY | | + + + + + + | MPV | 9.1 | fL | [facility] | | | | | | [facility] | | | | | | [facility] | | | | | | LABORATORY | | + + + + + + | % | 48.4 | 37.0 - 80.0 % | [facility] | | | Neutrophils | | | COMMUNITY | | | | | | HOSPITAL | | | | | | LABORATORY | | + + + + + + | % | 39.1 | 10.0 - 50.0 % | [facility] | | | Lymphocytes | | | COMMUN[facility] | | | | | | [facility]OSP[facility] | | | | | | LABORATORY | | + + + + + + | % Monocytes | 9.8 | 0.0 - 12.0 % | [facility] | | | | | | [facility] | | | | | | [facility] | | | | | | LABORATORY | | + + + + + + | % | 2.0 | 0.0 - 7.0 % | [facility] | | | Eosinophils | | | COMMUNITY | | | | | | HOSPITAL | | | | | | LABORATORY | | + + + + + + | % Basophils | 0.5 | 0.0 - 2.5 % | [facility] | | | | | | COMM[facility] | | | | | | [facility] | | | | | | LABORATORY | | + + + + + + | Absolute | 2.98 | 1.67 - 8.80 | [facility] | | | Neutrophils | | K/uL | COMM[facility] | | | | | | [facility] | | | | | | LABORATORY | | + + + + + + | Absolute | 2.40 | 0.60 - 3.40 | [facility] | | | Lymphocytes | | K/uL | COMM[facility] | | | | | | H[facility] | | | | | | LABORATORY | | + + + + + + | Absolute | 0.60 | 0.00 - 4.00 | [facility] | | | Monocytes | | K/uL | COMM[facility] | | | | | | [facility] | | | | | | LABORATORY | | + + + + + + | Absolute | 0.12 | 0.00 - 2.50 | [facility] | | | Eosinophils | | K/uL | COMMUNITY | | | | | | H[facility] | | | | | | LABORATORY | | + + + + + + | Absolute | 0.03 | 0.00 - 0.20 | [facility] | | | Basophils | | K/uL | COMMUNITY | | | | | | HOSPITAL | | | | | | LABORATORY | | + + + + + + + + | Specimen | + + | Blood | + + + + + + + | Performing | Address | City/State/Zipcode | Phone Number | | Organization | | | | + + + + + | [facility] | [address] | [place], [place] | [phone] | | HOSPITAL LABORATORY | | [id number] | | + + + + + documented in this encounter Visit Diagnoses + + | Diagnosis | + + | Concussion, without LOC, initial encounter - Primary | + + | Cervical strain, acute, initial encounter | + + documented in this encounter
--- OUTSIDE RECORDS SUMMARY | ~2020-08-10 | XMS | Encounter Summary ---
Demographics + + + | Address | [address] | | | [place] [address] | + + + | Home Phone | | + + + | Preferred Language | Unknown | + + + | Marital Status | | + + + | Alevism Affiliation | [id number] | + + + | Race | White | + + + | Ethnic Group | Not or | + + + Author + + + | Author | [facility] | | | and [place] | + + + | Organization | [facility] | | [...] Team Providers + +------+ + | Care Watchmaking Teacher Name | Role | Phone | + +------+ + | Wendi Aiken | PCP | | + +------+ + Reason for Visit + +--------+ + | Reason | Onset | Comments | | | Date | | + +--------+ + | Appointment | 06/14/ | Reschedule | | | 2016 | | + +--------+ + Encounter Details +--------+ + + + + | Date | Type | Department | Care Team | Description | +--------+ + + + + | 06/14/ | Telephone | [facility] | Sj Valdes MD | Appointment | | 2016 | | NEUROSURGERY [address] | [address] | (Reschedule) | | | | [facility] [address] | [place] [address] | | | | | [place] | [phone] | | | | | [address] | | | | | | [phone] | | | +--------+ + + + [...] this encounter Miscellaneous Notes Telephone Encounter - Alejandro Gill - 06/21/2017 12:03 PM PDTPatient rescheduled to 07/01/17 @ 12:30 xrays prior elephone Encounter - Gloria March - 06/14/2017 6:20 PM PDTKori has an appointment scheduled for tomorrow. Dr. Valdes is being pulled to emergency surgery. Valorie called to cancel appo intment. Patient has a scoliosis sieres xray scheduled for tomorrow. Please call patient to reschedule. documented in this encounter Plan of Treatment +--------+---------+ + + + | Date | Type | Specialty | Care Team | Description | +--------+---------+ + + + | 08/20/ | Office | Pain Medicine | Denys Sibley, | | | 2019 | Visit | | [address] | | | | | | [facility] [place] | | | | | | [address] | | | | | | | | +--------+---------+ + + + | 09/01/ | Office | Cardiology | Monserrat Weems | | | 2019 | Visit | | [address] | | | | | | [address] | | | | | | [place] [address] | | | | | | [phone] | | | | | | | | +--------+---------+ + + + documented as of this encounter Visit Diagnoses Not on filedocumented in this encounter"
--- OUTSIDE RECORDS SUMMARY | ~2020-08-10 | XMS | Encounter Summary ---
Demographics + + + | Address | [address] | | | [place] [address] | + + + | Home Phone | | + + + | Preferred Language | Unknown | + + + | Marital Status | | + + + | Islam Affiliation | 1013 | + + + | Race | White | + + + | Ethnic Group | Not or | + + + Author + + + | Author | Merged With [facility] | | | and [place] | + + + | Organization | Merged With [facility] | | | [...] Team Providers + +------+ + | Care Blasting Entry Specialist Name | Role | Phone | [...] | | | | | | | MA SURG | | | | | | | IMPLNT | | | | | | | NEUROELECT,E | | | | | | | PIDURAL MA | | | | | | | IMPLANT | | | | | | | NEUROSTIM/RE | | | | | | | CEIVER MA | | | | | | [...] + + | 08/03/ | Surgery | [facility] | Maykel Hutchins MD | LAMINOTOMY THORACIC | | 2019 | | [facility] | [address] | / LUMBAR W/ | | | | OPERATING ROOM [address] | [address] [place], [place] | PLACEMENT SPINAL | | | | [address] | [phone] | CORD STIMULATOR | | | | [place], [place] | | | | | | [address] | | | | | | [phone] | | | +--------+---------+ + + + [...] + + + | Blood Pressure | 131/67 | 08/03/2019 7:26 AM | | | | | PDT | | + + + + + | Pulse | 81 | 08/03/2019 7:26 AM | | | | | PDT | | + + + + + | Temperature | 37 C (98.6 F) | 08/03/2019 7:26 AM | | | | | PDT | | + + + + + | Respiratory Rate | 17 | 08/03/2019 7:26 AM | | | | | PDT | | + + + + + | Oxygen Saturation | 99% | 08/03/2019 7:26 AM | | | [...] might be different from t he original. [facility]. 08/04/2019 DISCHARGE SUMMARY PATIENT NAME: Kori LeighFawthrop : 1945 TODAY'S DATE: 08/16/2019 Primary Care [...] by elevating your feet Date Last Reviewed: [id number] [employer]. [address] [place] [address], [place] [address]. All righ ts reserved. This information is not intended as a substitute for professional medical care. Always follow your healthcare professional's instructions. Acetaminophen; Hydrocodone tablets or capsules Brand Names: Anexsia, Lorcet, Lorcet HD, Lorcet Plus, Lortab, [place], Verdrocet, Vicodin, Vi codin ES, Vicodin HP, [...] information carefully each time. Talk to your conference manager regarding the use of this medicine in children. Special care may be needed. What side effects may I notice from receiving this medicine? Side effects that you should report to your doctor or health attending ambulatory care as soon as p ossible: allergic [...] attention (report to your doctor or health attending ambulatory care if they continue or are bothersome): constipation [...] to an official disposal site. Contact the [facility] at [phone] or your [facility] government to find a site. If you [...] this medicine? Tell your doctor or health attending ambulatory care if your pain does not go away, [...] not take more medicine than directed. Dereck self emergency for help if you have problems [...] | | | | tablet | for Anxiety Usually | | | | | | | takes qhs, has been | | | | | | | on it 20 year. | | | | | + + [...] Decreased | | | | | | prison current | Responsiveness (May | | | [...] Faria MSW - 08/04/2019 2:12 PM PDTCase banking manager sent out Home Health order to [...] her up today to go home to [facility]. Past Medical History: Diagnosis Date Acid reflux disease Acute renal failure (HCC) April 2013 Adverse effect of anesthesia hx hallucinations after anesthesia x 3 yrs ago. Anesthesia hallucinated after bladder repair Arthralgia Arthritis Asthma Asthma Back pain Cancer ([facility]) 2004 breast Cataract Cerebrovascular accident (CVA) ([facility]) no per pt Chronic back pain Chronic back pain Chronic constipation Concussion 07/2015 Preceeded by seizure Constipation COPD (chronic obstructive pulmonary disease) ([facility]) Degenerative disc disease Depression Depression Diabetes mellitus ([facility]) Diabetes mellitus, type 2 (HCC) diet controlled Diabetes type 2, controlled ([facility]) diet controlled Diarrhea Disorder of thyroid [...] Scoliosis of lumbar spine 04/17/2014 Seizure ([facility]) one due to meds, two due [...] mg 100 mg Oral BID PRN Julien Guzman, SENIOR LANDSCAPE ARCHITECT HYDROcodone-acetaminophen (NORCO) 10-325 mg per tablet 1 tablet 1 tablet Oral Q4H PRN Julien Guzman, SENIOR LANDSCAPE ARCHITECT 1 tablet at 08/04/19 0502 HYDROmorphone (DILAUDID) [...] chloride 0.45% (1/2 NS) infusion Intravenous Continuous KANG Davis 100 m L/hr at 08/04/19 0057 Allergies [...] To Stay over Night/general Dietvorb Julien Guzman. Аннаectronically signed by Jane Vaca RN at 08/03/2019 4:08 PM PDT Jane Vaca RN - 08/03/2019 3:02 PM PDTPT With Pt. Eduardronically signed by Jane Vaca RN at 08/03/2019 3:03 PM PDT documented in this encounter H&P Notes Maykel Hutchins MD - 08/03/2019 9:11 AM PDTThe current H&P was reviewed. The patient was ree xamined. Re-evaluation of the patient confirms the necessity for the scheduled procedure. No changes have occurred in the patient's condition since the H&P was completed less than 30 d ays ago: VERIFICATION OF CONSENT (PARQ) The pt counseled regarding the procedure, its indica tions, risks, potential complications and alternatives. Any questions were answered. Consent was obtained. Electronically signed by: paolo Electronically signed by Maykel Hutchins MD at 1 9:11 AM PDTMaykel Hutchins MD - 08/03/2019 9:06 AM PDTPlan SCSTIM Will proceed as planned. Julien Luevano ARNP - 12/2018 8:49 AM PDT CC: LBP HPI: Patient recently underwent successful spinal cord stimulator trial with Dr. Casillas. Patient would like to proceed with the proposed spinal cord stimulator implant. All patient 's questions were answered in their entirety prior to the trial. Past Medical History: Diagnosis Date Acid reflux disease Acute renal failure (HCC) April 2013 Adverse effect of anesthesia hx hallucinations after anesthesia x 3 yrs ago. Anesthesia hallucinated after bladder repair Arthralgia Arthritis Asthma Asthma Back pain Cancer ([facility]) 2004 breast Cataract Cerebrovascular accident (CVA) ([facility]) no per pt Chronic back pain Chronic back pain Chronic constipation Concussion 07/2015 Preceeded by seizure Constipation COPD (chronic obstructive pulmonary disease) ([facility]) Degenerative disc disease Depression Depression Diabetes [...] Procedure: KYPHOPLASTY; Surgeon: Alfredo Casillas DO; Location: [facility]; Service: Pa in Management; Laterality: N/A; L5 FRACTURE SURGERY ANKLE HERNIA REPAIR HYSTERECTOMY HYSTERECTOMY OTHER SURGICAL HISTORY EPIDURAL STEROID INJECTION OTHER SURGICAL HISTORY 08/28/2018 EPIDURAL STEROID INJECTION - LESI L4-L5 OTHER SURGICAL HISTORY 09/11/2018 EPIDURAL STEROID INJECTION - LESI L5-S1 OTHER SURGICAL HISTORY UNLISTED PROCEDURE ARTHROSCOPY SLING REMOVAL , BLADDER 2006 TUBAL LIGATION UPPER GASTROINTESTINAL ENDOSCOPY No current facility-administered medications for this encounter. Current Outpatient Medications: ALBUTEROL IN, Inhale into [...] 10 patch, Rfl: 0 HYDROcodone-acetaminophen (NORCO) 7.5-325 mg per tablet, Take 1 tablet by [...] mouth 4 times daily., Disp: , Rfl: Allergies Allergen Reactions Prednisolone Other (See Comments) Depression/suicidal Ambien (Zolpidem) Not Noted Ativan (Lorazepam) Not Noted Morphine Not Noted Intolerance No active intolerances/contraindications Social History Socioeconomic History Marital status: Spouse name: Not on file Number of children: 3 Years of education: 14 Highest education level: Not on file Occupational History Occupation: [employer] Tobacco Use Smoking status: Never Smoker Smokeless tobacco: Never Used Substance and Sexual Activity Alcohol use: Yes Comment: Alcoholic Drinks/day: not often..twice per year Drug use: No Comment: Drug use: No Sexual activity: Never Family History Problem Relation Age of Onset [...] cancer Paternal Uncle Heart failure Paternal Aunt Maljoe hypertherm Neg Hx ROS: 12 system review is significant for lower back pain PE: HEENT; unremarkable Chest: clear CV: regular Abd: soft Lumbar: TTP lower lumbar no focal neurologic deficit. A/P: Chronic low back pain Given the recent success with a spinal cord stimulator trial, we will proceed with a spinal cord implant.We discussed the specific risks of the procedure including bleeding, infection , injury to the nervous structures, csf leak, medical complications, worsened pain, recurren t disc herniation, need for further surgery, even . The procedure and its indications, the alternative treatment options including non-treatment, the anticipated benefits of the p rocedure and alternatives, and the possible risks and complications of the procedure are add ressed with the patient and all questions were answered. The patient wishes to proceed with surgical intervention and informed consent was obtained. documented in this enco unter Miscellaneous Notes Plan of Gamal Doherty RN - 08/04/2019 3:27 PM PDTPt was stable getting up and ambulating using the cane. 3: 27 PM PDTPlan of Gamal Doherty RN - 08/04/2019 3:05 PM PDTPt and friend given discharge instructions. Iv removed. Recommended to follow up with home health after discharg e. Escorted out with fellow CNA lan of Gamal Doherty RN - 08/04/2019 11:15 AM PDT Problem: Fall Injury Risk Goal: Absence of Fall and Fall-Related Injury Outcome: Ongoing, progressing Bed in lowest position and wheels locked. Pt uses call light appropriately. Uses a walker and bedside commode Plan of Care - Jairo Calderon RN - 08/04/2019 2:12 AM PDT Problem: Adult Inpatient Plan of Care Goal: Plan of Care Review Outcome: Ongoing, progressing Goal: Absence of Hospital-Acquired Illness or Injury Outcome: Ongoing, progressing Call light within reach. Non-skid socks applied. Bed in lowest position. Problem: Fall Injury Risk Goal: Absence of Fall and Fall-Related Injury Outcome: Ongoing, progressing Problem: Skin Injury Risk Increased Goal: Skin Health and Integrity Outcome: Ongoing, progressing p Note - Leda Hutchins MD - 08/03/2019 8:40 PM PDT..Pre-operative Diagnosis: Neuropathic Pain Post-operative Diagnosis: Same Procedure(s): T9-10 laminectomy/decompression T8 placement of Epidural paddle lead Intraop interrogation of dorsal column stimulator Placement of RIGHT flank battery pack/generator ST Akash SCStimulator device placed. Surgeon: Maykel Hutchins MD Exterior Work Helper(s): CATHIE Earl Anesthesia: General endotrachial anesthesia Estimated Blood Loss: Less Than 50 ml Other: Not applicable Indications: See pre-operative history and physical. Findings: C/w above. Complications: none Description of Procedure: The patient was signed preoperatively of preoperative Anaprox ad ministered and preoperative timeout performed. The patient was placed prone on a standard Sc lson frame regular table. Orthogonal x-ray identified the 910 thoracic levels. Left flank was chosen for battery pack placement. Local infiltrate was placed at the left flank incision proximal to the belt line as well as into the T8-9-10 level. At this juncture sharp and blunt dissection was carried out with stripping subperiosteally bilaterally at the T9-10 level. A near complete laminectomies performed with maintenance of facet joints. Ligamentum flavum was hypertrophic and was decompressed which allowed for dec ompression dorsally of the central cord.. The paddles placed over the T8 level. Leads were t hen tunneled to the battery pack which was made through sharp and blunt dissection approxima te 1 cm deep. This was attached the battery and the system was interrogated intraoperativel y and found to be working with normal impedance normal function. The paddle lead was tied into the interspinous fascia followed by tunneling. Thorough irrig ation ensued of both thoracic as well as left flank wounds. The incision was then closed in the usual fashion with adequate hemostasis achieved. Postoperatively the patient was interrogated as well with good coverage bilaterally. Condition: Stable lan o f Jane Monet RN - 08/03/2019 5:18 PM PDTReport to freddy Adames. Аннаectronically signed by Jane Vaca RN at 08/03/2019 5:27 PM PDT Plan of Jane Monet RN - 08/03/2019 4:10 PM PDTFriend Dinah At Bed side. Pt Updated With plan of care to Stay overnight and clear Liquid Diet. EBiClarkronically signed by Jane Vaca RN at 08/03/2019 4:29 PM PDT Plan of Jane Monet RN - 08/03/2019 3:34 PM PDTPT With Pt. Eduardronically signed by Jane Vaca RN at 08/03/2019 3:34 PM PDT Plan of Chiquita Holman PT - 08/03/2019 3:[address] [facility] Physical Therapy OPIB Plan of Care Initial Evaluation Note Patient Name: Kori Mcintosh-Fawthrop Date of Onset of Illness/Injury or Date of Surgery: 08/03/19 Start of Care/Start of Certification Date: 08/03/2019 End of Certification Date: 09/02/2019 Summary: Pt presents with overall functional weakness, impaired balance, and limited funct ional endurance. Pt was contact-guard to Alan with transfers and gait using a SPC and tolera nighat only 5 feet of walking due to feeling lightheaded and nauseous. Pt scored 8/28 on Tin[place] i MANDY indicating high fall risk. Pt is not safe to go home without 24/7 assist at this time . Pt would benefit from physical therapy to address impairements so that she may safely retu rn home. Identified Problems Needing Skilled Intervention: deconditioning, spinal surgery, aerobic c apacity/endurance, functional endurance/activity tolerance, gait, locomotion, and balance, m otor function, muscle performance Physical Therapy Discharge Recommendations are: Recommended discharge disposition: alf facility(or home with assist) Post discharge physical therapy recommendation: ongoing low intensity therapy(if home with assist, then home health) Equipment Recommendations: 4 wheeled walker (4WW), cane (straight, single point)(pt owns) Planned Interventions: gait training, balance training, strengthening, transfer training Recommended Frequency: 3 times/wk Patient Status/Goals: Reflects last filed data and may be from multiple contributors. Bed Mobility pt owns hospital bed Assistive Device: bed rails, HOB elevated Supine to Sit, Level of [place]: modified independent Sit to Supine, Level of [place]: modified independent Impairments: strength decreased Transfers Bed-Chair, Level of [place]: minimal assist (75% patient effort) Chair-Bed, Level of [place]: minimal assist (75% patient effort) Uij-Wyzxt-Yks, Assistive Device: cane (straight, single point) Sit-Stand, Level of [place]: contact guard assist Stand-Sit, Level of [place]: contact guard assist Pef-Ghblg-Brf, Assistive Device: cane (straight, single point) Safety Issues: balance decreased during turns, step length decreased, weight-shifting abili ty decreased Impairments: strength decreased, impaired balance Gait Level of [place]: contact guard assist, minimal assist (75% patient effort) Assistive Device: cane (straight, single point) Distance (feet): 5 Gait Deviations: double stance time increased, lona decreased, limb motion velocity decr eased, step length decreased, stride length decreased, weight-shifting ability decreased Safety Issues: balance decreased during turns, step length decreased, weight-shifting abili ty decreased Balance Sitting Balance: Static: good balance Sitting Balance: Dynamic: fair balance Standing Balance: Static: poor balance Standing Balance: Dynamic: poor balance ROM Limited RUE, LUE WFL. BLE WFL Strength BLE WFL though impaired overall PT Goal Review Date Most Recent Value STG Review Date 08/10/19 at 08/03/2019 1500 All Transfers Goal Most Recent Value LTG Status new at 08/03/2019 1500 LTG [place] Level modified independent at 08/03/2019 1500 LTG Assistive Device cane (straight, single point) at 08/03/2019 1500 Gait Goal Most Recent Value LTG Status new at 08/03/2019 1500 LTG [place] Level modified independent at 08/03/2019 1500 LTG Assistive Device cane (straight, single point) at 08/03/2019 1500 LTG Distance (feet) 150 at 08/03/2019 1500 Stair Goal Most Recent Value LTG Status new at 08/03/2019 1500 LTG [place] Level modified independent at 08/03/2019 1500 LTG Assistive Device 1 rail, cane (straight, single point) at 08/03/2019 1500 LTG Number of Stairs 8 at 08/03/2019 1500 PT Time Calculation Individual Start Time: 1500 Individual Stop Time: 1550 Individual Total Time: 50 PT Total Treatment Time: 50 Timed TX Code Minutes: 0 Electronically signed by: Chiquita Ledbetter, PT, 08/03/2019 16:19 Postlaminectomy syndrome, thoracic region [M96.1] Radiculopathy of thoracolumbar region [M54.15] lan of Jane Alex RN - 08/03/2019 2:21 PM PDTPt Was Asleep. Pt With 2 Assist To Bedside Commode. Pt Void 100cc. Pt Asking For Her Friend Dinah. Pt Informed Dinah Was Here But She Was asleeo. Alice lan of Jane Monet RN - 08/03/2019 1:14 PM PDTFriend Nathalia Here And States "pt Has A Lot of Mental Problems And I Have Boundaries. I Don 't Stay There Overnight And She Doesn't Stay With Me. I Do Everything Else For Her." Аннаectronically signed by Jane Vaca RN at 08/03/2019 1:36 PM PDT Plan of Jane Monet RN - 08/03/2019 1:11 PM PDT Problem: Adult Inpatient Plan of Care Goal: Plan of Care Review Outcome: Ongoing, progressing Goal: Patient-Specific Goal Outcome: Ongoing, progressing Goal: Absence of Hospital-Acquired Illness or Injury Outcome: Ongoing, progressing Goal: Optimal Comfort and Wellbeing Outcome: Ongoing, progressing Goal: Readiness for Transition of Care Outcome: Ongoing, progressing Problem: Fall Injury Risk Goal: Absence of Fall and Fall-Related Injury Outcome: Ongoing, progressing Problem: Skin Injury Risk Increased Goal: Skin Health and Integrity Outcome: Ongoing, progressing Pt very sleepy/plan of care reviewed with pt. Alice lan of Care - Jane Vaca RN - 08/03/2019 1:04 PM PDTPt Transferred Into Bed. Personal Belongings At Bedside. Pt Very Sleepy. Аннаectronically signed by Jane Vaca RN at 08/03/2019 1:34 PM PDT documented in this encounter Plan [...] [place] | | | | | | [id number] | | | | | | | | +--------+---------+ + + + | 09/01/ | Office | Cardiology | [facility] [place] | | | 2020 | Visit | | [address] | | | | | | [address] | | | | | | [place] [address] | | | | | | [phone] | | | | | | | [...] | | | Needs | | | INSURANCE POLICY CLERK | | | reques | | | [...] | | | POC | performed at [facility];[address] | | LABORATORY | | | | [address];[place], [place] | | | | | | [address] | | | | + + + + + + + + | Specimen | + + | | + + + + + + + | Performing | Address | City/State/Zipcode | Phone Number | | Organization | | | | + + + + + | [facility] | [address] [facility] | [place] [address] | [phone] | + + + + + POC Glucose (08/03/2019 4:15 PM PDT) + + + + + + | Component | Value | Ref Range | Performed | Pathologist | | | | | At | Signature | + + + + + + | Glucose, | 99Comment: Testing | 65 - 99 mg/dL | [facility] | | | POC | performed at [facility];[address] | | LABORATORY | | | | [address];[place] | | | | | | [address] | | | | + + + + + + + + | Specimen | + + | | + + + + + + + | Performing | Address | City/State/Zipcode | Phone Number | | Organization | | | | + + + + + | [facility] | [address] | [place] [address] | [phone] | + + + + + POC [...] | | | POC | performed at [facility];[address] | | LABORATORY | | | | [address];[place] | | | | | | [address] | | | | + + + + + + + + | Specimen | + + | | + + + + + + + | Performing | Address | City/State/Zipcode | Phone Number | | Organization | | | | + + + + + | [facility] | [address] | [place] [address] | [phone] | + + + + + POC Glucose (08/03/2019 11:05 AM PDT) + + + + + + | Component | Value | Ref Range | Performed | Pathologist | | | | | At | Signature | + + + + + + | Glucose, | 108 (H)Comment: Testing | 65 - 99 mg/dL | [facility] | | | POC | performed at [facility];[address] | | LABORATORY | | | | [address];[place] | | | | | | [address] | | | | + + + + + + + + | Specimen | + + | | + + + + + + + | Performing | Address | City/State/Zipcode | Phone Number | | Organization | | | | + + + + + | [facility] | [address] | [place] [address] | [phone] | + + + + + LINSEY [...] | | | POC | performed at [facility];[address] | | LABORATORY | | | | [address];[place] | | | | | | [address] | | | | + + + + + + + + | Specimen | + + | | + + + + + + + | Performing | Address | City/State/Zipcode | Phone Number | | Organization | | | | + + + + + | [facility] | [address] | [place] [address] | [phone] | + + + + + POC Glucose (08/03/2019 9:14 AM PDT) + + + + + + | Component | Value | Ref Range | Performed | Pathologist | | | | | At | Signature | + + + + + + | Glucose, | 80Comment: Testing | 65 - 99 mg/dL | [facility] | | | POC | performed at [facility];[address] | | LABORATORY | | | | [address];[place] | | | | | | [address] | | | | + + + + + + + + | Specimen | + + | | + + + + + + + | Performing | Address | City/State/Zipcode | Phone Number | | Organization | | | | + + + + + | [facility] | [address] | [place] [address] | [phone] | + + + + + Type [...] + + + | BB BAND | [id number] | | [facility] | | | | | | LABORATORY | | + + + + + + | BB BAND | Testing performed at | | [facility] | | | | [facility];[address] LABORATORY | | | [address];[place] [address] | | | | + + + + + + + + | Specimen | + + | Blood | + + + + + + + | Performing | Address | City/State/Zipcode | Phone Number | | Organization | | | | + + + + + | [facility] | [address] | [place] [address] | [phone] | + + + + + POC Glucose (08/03/2019 7:23 AM PDT) + + + + + + | Component | Value | Ref Range | Performed | Pathologist | | | | | At | Signature | + + + + + + | Glucose, | 77Comment: Testing | 65 - 99 mg/dL | [facility] | | | POC | performed at [facility];[address] | | LABORATORY | | | | [address];[place], [place] | | | | | | [address] | | | | + + + + + + + + | Specimen | + + | | + + + + + + + | Performing | Address | City/State/Zipcode | Phone Number | | Organization | | | | + + + + + | [facility] | [address] | [place] [address] | [phone] | + + + + + documented [...] | Pain, Starting 08/03/19 at | | | | | | [...]
--- OUTSIDE RECORDS SUMMARY | ~2020-08-10 | XMS | Encounter Summary ---
Demographics + + + | Address | [address] | | | [place] [address] | + + + | Home Phone [...] Team Providers + +------+ + | Care Care Giver Name | Role | Phone | + [...] | | [address] | [place] [address] | | | | | [place], [place] | [phone] | | | | | [address] | | | | | | [phone] | | | +--------+ + + + [...] [place] | | | | | | [address] | | | | | | | | +--------+---------+ + + + | 09/01/ | Office | Cardiology | [facility] | | | 2020 | Visit | | [address] | | | | | | [address] | | | | | | [place] [address] | | | | | | [phone] | | | | | | | | +--------+---------+ + + + documented as of this encounter Visit Diagnoses Not on filedocumented in this encounter"
--- OUTSIDE RECORDS SUMMARY | ~2020-08-10 | XMS | Encounter Summary ---
Demographics + + + | Address | [address] | | | [place] [address] | + + + | Home Phone [...] Team Providers + +------+ + | Care Piper Installer Name | Role | Phone | + +------+ + | Wendi Aiken | PCP | | + +------+ + Reason for Visit +--------+--------+ + | Reason | Onset | Comments | | | Date | | +--------+--------+ + | Other | 04/17/ | Back Brace | | | 2018 | | +--------+--------+ + Encounter Details +--------+ + + + + | Date | Type | Department | Care Team | Description | +--------+ + + + + | 04/17/ | Telephone | [facility] | Nick Martinez, | Other (Back Brace) | | 2017 | | PHYSIATRY [address] | PA-C [address] | | | | [address] | [address] [place] | | | | | [place] [facility], [place] | [place] [address] | | | | | [address] | [phone] | | | | | [phone] | | | +--------+ + + + [...] this encounter Miscellaneous Notes Telephone Encounter - Cheyenne Flores, Vice President Diversity - 04/17/2018 2:07 PM PDTCalled p josh to clarify that her brace will be provided as a part of PT, and that she should be fi tted for and provided with a brace DURING physical therapy. The patient expressed understand ing. I also advised the patient that her PT was authorized today and I would have it sent to [facility], but it may take a few days, so that she should wait to call them. The patient expresse d understanding and was grateful for the call. elephone Encounter - Randy, Christiana Gasca - 018 8:15 AM PDTPatient would like a call back to discuss back brace that was recommended fo roshni townsend. She would like to know if order has been placed. Please advise documented in this encounter Plan of Treatment +--------+---------+ + + + | Date | Type | Specialty | Care Team | Description | +--------+---------+ + + + | 08/20/ | Office | Pain Medicine | Denys Sibley, | | | 2019 | Visit | | DO [address] | | | | | | [place] | | | | | | [phone] | | | | | | | | +--------+---------+ + + + | 09/01/ | Office | Cardiology | Monserrat Weems | | | 2019 | Visit | | [address] | | | | | | [address] | | | | | | [place] [address] | | | | | | [phone] | | | | | | | | +--------+---------+ + + + documented as of this encounter Visit Diagnoses Not on filedocumented in this encounter"
--- OUTSIDE RECORDS SUMMARY | ~2020-08-10 | XMS | Encounter Summary ---
Demographics + + + | Address | [address] | | | [place] [address] | + + + | Home Phone [...] Author + + + | Author | [facility] | + + + | Organization | [facility] | + + + | Address | Unknown | + + + | Phone | Unavailable | + + + Support + + +---------+ + | Name | Relationship | Address | Phone | + + +---------+ + | Royce Menchaca | ECON | Unknown | | + + +---------+ + Care Team Providers + +------+ + | Care Mat Sewer Name | Role | Phone | + +------+ + | Miquel Calhoun MD | PCP | | + +------+ + Encounter Details +--------+ + + + + | Date | Type | Department | Care Team | Description | +--------+ + + + + | 11/05/ | Telephone | [facility] | Khushbu Cortez, | | | 2013 | | [facility] | [place], [place] | | | | | [address] | [address] | | | | | [address] | | | | | | Ridd[place], [address] [place] [address] | | | | | | [place], [place] | | | | | | [address] | | | | | | [phone] | | | +--------+ + + + [...] this encounter Miscellaneous Notes Telephone Encounter - Dana Khushbu C, SHIPFITTER - 11/05/2013 4:53 PM Terri called today to ask for gas help for her drive from [place] to [facility] on Nov 29 for 3 medical appointments. Pt said she can stay with her son as he has found housing, but is low income and could use help with gas. I told pt that I can give her a one time offer of $100 in nevarez cards, or I co uld give her $50 for this visit and she could save $50 for the future. Pt said $100 would be helpful now. Pt also said that she was feeling depressed and that her "bi-polar was flaring up" and that she may be going to [place] "psych hospital" until she stabilizes. Pt reports not having SI/H I although said "i have tried to kill myself many times." Pt has plan to call her case workrichie barakta tomorrow to confirm potentially going to [place] or not. Pt has family in [place] but does n't see them very often. Pt lives alone. I asked pt her case management associate's name and pt asked why I wanted to know that? I told pt that I don't need to know and that I think it is a good plan to talk with her tomorrow. Pt said she would be safe tonight. Pt agreed to go to ED in [place] if she developed SI/HI ("although I don't like that hospital!") Pt offered that she will call me when she comes back from [place] and we can confirm gas card plan. Khushbu LEDBETTERW documented in this encounter Plan of Treatment Not on filedocumented as of this encounter Visit Diagnoses Not on filedocumented in this encounter
--- OUTSIDE RECORDS SUMMARY | ~2020-08-10 | XMS | Encounter Summary ---
Demographics + + + | Address | [address] | | | [place] [address] | + + + | Home Phone [...] Team Providers + +------+ + | Care Green Marketing Analyst Name | Role | Phone | + +------+ + | No, Physician | PCP | Unavailable | + +------+ + Reason for Visit +--------+--------+ + | Reason | Onset | Comments | | | Date | | +--------+--------+ + | Pain | 12/27/ | | | | 2013 | | +--------+--------+ + Encounter Details +--------+ + + + + | Date | Type | Department | Care Team | Description | +--------+ + + + + | 12/27/ | Telephone | [facility] [place] | Shay Dietz | Pain | | 2013 | | PHYSIATRY [address] | [address], [address] | | | | [address] | ST [place], [place] | | | | | [place], [place] | [address] | | | | | [address] | | | | | | [phone] | | | +--------+ + + + [...] this encounter Miscellaneous Notes Telephone Encounter - Emerita Morrow, Master of Arts - 01/01/2014 10:19 AM PSTPatient sc heduled by Chantale Gant RN for injection with Dr. Dietz this 01/03/2014.El ectronically signed by Emerita Morrow Master of Ingenuity Systems at 01/01/2014 10:21 AM PSTTelephone Encounter - Glory Toledo - 12/31/2013 3:54 PM PSTCall from patient stating she was suppos ed to receive a call today to find out what was going to happen. Please return call. Electro nically signed by Glory Toledo at 12/31/2013 3:55 PM PSTTelephone Encounter - Shay Dietz MD - 12/27/2013 6:24 PM PSTI called the patient again and explained my reasoning fo r not prescribing narcotics as in my office note. She again reiterated that she is not acti vely suicidal. She has been in contact just now with her mental health provider and I would be happy to talk to her mental health provider as well. She would be interested in trying an epidural injection and wants to be contacted to schedule that, a left L5-S1 TFESI. I aga in encouraged her to establish with a primary care provider and continue to work [facility]. At some point we may need a new MRI to figure out why her pa in has increased so much lately, especially if the injection doesn't help.Electronically sig marianne by Shay Dietz MD at 12/27/2013 6:29 PM PSTTelephone Encounter - Brenda Dietz MD - 12/27/2013 5:37 PM PSTTried to call around 5:30 pm on . Left message and will try calling later. I do not plan to give her pain medication. See my recent office v isit note for detailed reasons. elephone Encounter - Emerita Morrow, Master of Arts - 12/27/2013 12:[address] Dietz- Please advise. elephone Encounter - Le Dumas - 12/27/2013 11:38 AM PSTReceiv ed call from patient and she stated she is having difficulty walking and is in severe pain. She would like some pain medication and is willing to sign a contract if needed. I told the patient I would pass this message on and they will get back to her. documented in this encounter Plan of Treatment [...] | | | | | | [place] [address] | | | | | | [phone] | | | | | | | | +--------+---------+ + + + documented as of this encounter Visit Diagnoses Not on filedocumented in this encounter"
--- OUTSIDE RECORDS SUMMARY | ~2020-08-10 | XMS | Encounter Summary ---
Demographics + + + | Address | [address] | | | [place] [address] | + + + | Home Phone | | + + + | Preferred Language | Unknown | + + + | Marital Status | | + + + | Methodist Affiliation | 1013 | + + + | Race | White | + + + | Ethnic Group | Not or | + + + Author + + + | Author | [facility] | | | and [place] | + + + | Organization | [facility] | | | [...] Providers + +------+ + | Care Telephone Interceptor Operator Name | Role | Phone | [...] | | CONVERSION [address] | MD [address] | | | | | [address] | Way [place], [place] | | | | | [place], [place] | [address] | | | | | [address] | | | | | | [phone] | | | +--------+ + + + [...] [address] | | | | | | [place], [place] | | | | | | [address] | | | | | | | | +--------+---------+ + + + | 09/01/ | Office | Cardiology | Monserrat Weems | | | 2019 | Visit | | [address] | | | | | | [address] | | | | | | [place] [address] | | | | | | [phone] | | | | | | | [...] 0.88 m/s MV | | | Dec [place]: 3.57 m/s2 MV DecT: 230.60 ms MV E Mark: 0.82 m/s | | | MV E/A Ratio: 0.93 MV PHT: 66.87 ms MVA By PHT: 3.28 cm2 | | | Septal e': 0.05 m/s Septal E/e': 15.05 Lateral e': 0.08 m/s | | | Lateral E/e': 9.70 RAP: 5 mmHg Union Organiser: | | | Authenticated by: Nena Franco Report Date/Time: -- | | | [id number]:11:24 | | + + + + + | Procedure Note | + + | Reji Pacheco Conversion - 06/21/2019 4:00 PM PDT Patient Name: CARRIE, | | Priyanka of : 1945 Performing Physician: Nena | | Joan INDICATIONS------ | | -----tia/stroke CONCLUSIONS 1. This [...] cmLVPWd: 0.73 cmLVOT Area: 3.03 | | [id number] Diam: 1.96 cm%FS: 33.05 %EF(Teich): 62.03 %ESV(Teich): 29.33 mlLVIDs: | | 2.79 cmSV(Teich): 47.94 mlRVIDd: 2.59 cmLAESV(A-L): 41.85 mlLAESV Index (A-L): | | 26.32 ml/m2LAAs A2C: 12.87 wn6TABOD A-L A2C: 32.77 mlLALs A2C: 4.29 cmLAAs A4C: | | 16.44 rx8SORYL A-L A4C: 50.32 mlLALs A4C: 4.55 cmAV maxP.92 mmHgAV meanPG: | | 4.38 mmHgAV Vmax: 1.40 m/Tisha Vmean: 0.99 m/Tisha VTI: 32.81 cmAVA Vmax: 2.11 | | cm2AVA (VTI): 2.40 xj9SNNP (Vmax): 0.00 cm2/m2AVAI (VTI): 0.00 cm2/m2LVOT maxPG: | | 3.84 mmHgLVOT meanP.47 mmHgLVSI Dopp: 49.70 ml/m2LVSV Dopp: 79.02 mlLVOT | | Vmax: 0.98 m/sLVOT Vmean: 0.75 m/sLVOT VTI: 26.05 cmMV A Mark: 0.88 m/sMV Dec | | [place]: 3.57 m/s2MV DecT: 230.60 msMV E Mark: 0.82 m/sMV E/A Ratio: 0.93MV PHT: | | 66.87 msMVA By PHT: 3.28 qu2Dgocvi e': 0.05 m/sSeptal E/e': 15.05Lateral e': | | 0.08 m/sLateral E/e': 9.70RAP: 5 mmHg Union Organiser:Authenticated by: Nena | | [facility] Date/Time: 42_[id number]:11:24 IMPRESSION: 1. This was a technically | [...] A Mark: 0.88 m/s | |MV Dec [place]: 3.57 m/s2 | |MV DecT: 230.60 ms | |MV E Mark: 0.82 m/s | |MV E/A Ratio: 0.93 | |MV PHT: 66.87 ms | |MVA By PHT: 3.28 cm2 | |Septal e': 0.05 m/s | |Septal E/e': 15.05 | |Lateral e': 0.08 m/s | |Lateral E/e': 9.70 | |RAP: 5 mmHg | | | |Union Organiser: | |Authenticated by: Nena Franco | |Report Date/Time: -- 26_[id number]_84:11:24 | | | |IMPRESSION: | |1. This [...]
--- OUTSIDE RECORDS SUMMARY | ~2020-08-10 | XMS | Encounter Summary ---
Demographics + + + | Address | [address] | | | [place] [address] | + + + | Home Phone [...] + + + | Author | [facility] | + + + | Organization | [facility] | + + + | Address | Unknown | + + + | Phone | Unavailable | + + + Support + + +---------+ + | Name | Relationship | Address | Phone | + + +---------+ + | Royce Menchaca | ECON | Unknown | | + + +---------+ + Care Team Providers + +------+ + | Care Civilian Jail Officer Name | Role | Phone | [...] | | 2016 | Encounter | at [facility] [address] | [address] | test results | | | | [facility] for | [address] [place], | | | | | Health and Healing, | [place] [address] | | | | | [facility] | [phone] | | | | | Floor [place], [place] | | | | | | [address] | | | | | | [phone] | | | +--------+ + + + [...]
--- OUTSIDE RECORDS SUMMARY | ~2020-08-10 | XMS | Encounter Summary ---
Demographics + + + | Address | [address] | | | [place] [address] | + + + | Home Phone [...] Team Providers + +------+ + | Care Firer Automatic Stoker Name | Role | Phone | + +------+ + | Concepción Gallardo NP | PCP | | + +------+ + Encounter Details +--------+ + + + + | Date | Type | Department | Care Team | Description | +--------+ + + + + | 11/26/ | Hospital | [facility] | Conversion | Peripheral vertigo, | | 2016 | Encounter | [facility] MRI [address] | Transaction, | unspecified | | | | [address] | Provider Unknown | laterality; | | | | [facility] | [phone] | Post-concussion | | | | [address] | | vertigo | | | | [phone] | | | +--------+ + + + [...] Note by Rosy Bautista RN at 11/26/15 6243 Author: Rosy Bautista RN Service: (none) Author Type: Registered Nurse Filed: 11/26/15 8714 Date of Service: 11/26/15 8919 Status: Signed Petrographer: Rosy Bautista RN (Registered Nurse) Responded to [...] the er befor e returning home to [place]. Pt reluctant but willing to go to [...] | | | | | | [place] | | | | | | [address] | | | | | | | | +--------+---------+ + + + | 09/01/ | Office | Cardiology | FaustinaMonserrat | | | 2019 | Visit | | [address] | | | | | | [address] | | | | | | [place] [address] | | | | | | [phone] | | | | | | | [...] | | | Fingerstick | performed at [facility];[address] | | LAB | | | | Rosenda Donnelly;[place] | | | | | | [address] | | | | + + + [...]
--- OUTSIDE RECORDS SUMMARY | ~2020-08-10 | XMS | Encounter Summary ---
Demographics + + + | Address | [address] | | | [place] [address] | + + + | Home Phone [...] Team Providers + +------+ + | Care Flight Operations Manager Name | Role | Phone | + +------+ + | Oxana Nye | PCP | | + +------+ + Reason for Visit +---------+--------+ + | Reason | Onset | Comments | | | Date | | +---------+--------+ + | Results | 07/12/ | | | | 2015 | | +---------+--------+ + Encounter Details +--------+ + + + + | Date | Type | Department | Care Team | Description | +--------+ + + + + | 07/12/ | Telephone | [facility] | Spenser, | Results | | 2015 | | PHYSIATRY [address] | [address] | | | | | [address] | [place] [address] | | | | | [place] | [place] [address] | | | | | [address] | [phone] | | | | | [phone] | | | +--------+ + + + [...] this encounter Miscellaneous Notes Telephone Encounter - Glory ToledoSOBEIDA - 07/13/2016 4:52 PM PDTTFESI was offered. Patient states the epidural injections in the past never helped. She was informed that this is a di fferent level. Dr Bishop requires 2 weeks in between injections which leaves us with one day to schedule prior to patient leaving to [place] and unfortunately there is nothing available. Patient was inf ormed she would need to follow up with PCP to discuss medication. elephone Encounter - Yaneli Dueñas PA-C - 07/13/2016 4:47 PM PDTSo if the facet and bursa injection hasn't given her much relief, th en maybe her pain is coming from the lumbar spinal stenosis at L4/L5 and she should have the epidural injections. She needs to talk with her PCP about the medication issue, they can always refer her to a p ain clinic if they are uncomfortable prescribing themselves. elephone Encounter - Glory Toledo CMA - 07/01 4:38 PM PDTFacet and bursa injections done on 07/06/16. Patient states she really hasn 't had much relief, patient was informed steroid can take up to two weeks to feel the full e ffect. Patient states she will be in [place] 07/21-07/27 and wants to know what she can do f or the pain while in [place]. Patient states her PCP will no longer prescribe her pain medi cations. Please advise. Telephone Encounter - Yaneli Dueñas PA-C - 07/13/2016 10:23 AM PDTHow is patient's ri ght hip feeling after we did a trochanteric bursa injection? How is her back feeling after we did L5/S1 facet injections? I'm glad we got a new lumbar MRI, it shows a progression of disc disease at L4/L5 which is creating moderate central spinal stenosis. This can definitely explain bilateral leg pain, worse with standing, walking, better with rest, this can also explain pain into her buttocks region or hip region if she has that. If the last injections failed to give her significant relief, we can target the spinal sten osis with a bilateral L5/S1 TFESI.Electronically signed by Yaneli Dueñas PA-C at 07/13 10:26 AM PDTTelephone Encounter - Glory Toledo CMA - 07/13/2016 8:36 AM PDTImages on I-site under Mcintosh F[place] (no hyphen)Electronically signed by Glory Toledo CMA at 07/13 8:40 AM PDTTelephone Encounter - Yaneli Dueñas PA-C - 07/12/2016 5:15 PM PDTD o we have lumbar MRI? P M PDTTelephone Encounter - Aylin Centeno - 07/12/2016 1:14 PM PDTPatient called to inform Yaneli that requested MRI has been completed at [facility]. Images and report hav e been requested. documented in this encounter Plan of Treatment +--------+---------+ + + + | Date | Type | Specialty | Care Team | Description | +--------+---------+ + + + | 08/20/ | Office | Pain Medicine | Denys Sibley, | | | 2019 | Visit | | DO [address] | | | | | | [place] | | | | | | [address] | | | | | | | | +--------+---------+ + + + | 09/01/ | Office | Cardiology | Monserrat Weems | | | 2020 | Visit | | [address] | | | | | | [address] | | | | | | [place] [address] | | | | | | [phone] | | | | | | | | +--------+---------+ + + + documented as of this encounter Visit Diagnoses Not on filedocumented in this encounter"
--- OUTSIDE RECORDS SUMMARY | ~2020-08-10 | XMS | Encounter Summary ---
Demographics + + + | Address | [address] | | | [place] [address] | + + + | Home Phone [...] Team Providers + +------+ + | Care Fire Extinguisher Charger Name | Role | Phone | + [...] | | Services | | Chronic | Spneser, | MD [address] | | | Required | | bilateral | Yaneli, | [address] | | | | | low back | PA-C [address] | [place], [place] | | | | | pain with | [address], | [address] | | | | | right-sided | [address] | Phone: | | | | | sciatica | [place] | [phone] | | | | | Facet | [address] | Fax: | | | | | arthritis of | Phone: | [phone] | | | | | lumbar | [phone] | | | | | | region | Fax: | | | | | | Adolescent | [phone] | | | | | | idiopathic [...] | | | Sp[place]er, | [address] | | | | | Trochanteric | Yaneli, | [place], | | | | | bursitis of | PA-C [address] | [place] | | | | | right hip | [address], | [address] | | | | | Procedures | [address] | Phone: | | | | | [place] | [place], [place] | [phone] | | | | | Joint | [address] | Fax: | | | | | Injection | Phone: | [phone] | | | | | Right | [phone] | | | | | | | Fax: | | | | | | | [phone] | | +--------+--------+ + + + + [...] + + | 02/08/ | Office | [facility] | Bogdanatalycz, | Chronic bilateral | | 2017 | Visit | PHYSIATRY [address] | [address] | low back pain with | | | | [address] | [address] | right-sided sciatica | | | | [place], [place] | [place] [address] | (Primary Dx); Facet | | | | [address] | [phone] | arthritis of lumbar | | | | [phone] | | region (HCC); | | | [...] blood sugars if you are diabetic. terminal operations manager risk can lead to osteoporosis which is [...] of the procedure you must provide a rivet driver to take you home. For all [...] working more h ours due to the [employer]. Her pain back is worse with bending [...] has no apparent deficits with short or halfway memory. 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 Unfortunately she lola nues to have significant [...] | | | | | | [place] | | | | | | [address] | | | | | | | | +--------+---------+ + + + | 09/01/ | Office | Cardiology | Monserrat Weems | | | 2019 | Visit | | [address] | | | | | | [address] | | | | | | [place] [address] | | | | | | [phone] | | | | | | | [...] bilateral | Ordered: 02/08/2017 | | [facility] | Referral | e | low [...] Injection Diagnosis: Lumbar Spondylosis and | [facility] | | Trochanteric Bursitis ICD-10 Code M47.816 and ICD-10 [place] | [facility] | | Harshal Rubio presents to [...] | + + + + + | [address] | [address] | [place] | [phone] | | [facility] | | [address] | | | - IMAGING | | [...]
--- OUTSIDE RECORDS SUMMARY | ~2020-08-10 | XMS | Encounter Summary ---
Demographics + + + | Address | [address] | | | [place] [address] | + + + | Home Phone [...] Team Providers + +------+ + | Care Gopherman Name | Role | Phone | + +------+ + | Romy De La Paz MD | PCP | | + +------+ + Reason for Visit + +--------+ + | Reason | Onset | Comments | | | Date | | + +--------+ + | Medical Clearance | 08/08/ | warfarin | | | 2020 | | + +--------+ + Encounter Details +--------+ + + + + | Date | Type | Department | Care Team | Description | +--------+ + + + + | 08/08/ | Telephone | [facility] | Alfredo Casillas DO | Medical Clearance | | 2020 | | [facility] | [address] [facility] | (warfarin ) | | | | MEDICINE PA[address] | [place] [address] | | | | | [facility], | | | | | [place] [address] | | | | | | [phone] | | | +--------+ + + + [...] this encounter Miscellaneous Notes Telephone Encounter - Jennifer iHcks Director Of Purchasing - 08/08/2020 2:02 PM PDTCalled to in form patient that she needs to get a letter of clearance for her come off of her Warfarin 5- 7days prior with an INR the day before the appointment. She will work on this as of today. E lectronically signed by Jennifer Back Caro Director Of Purchasing at 08/08/2020 2:05 PM PDTdocumented in this encounter Plan of Treatment +--------+---------+ + + + | Date | Type | Specialty | Care Team | Description | +--------+---------+ + + + | 08/20/ | Office | Pain Medicine | Denys Sibley, | | 2019 | Visit | | DO [address] | | | | | | [place] | | | | | | [address] | | | | | | | | +--------+---------+ + + + | 09/01/ | Office | Cardiology | Monserrat Weems | | | 2020 | Visit | | [address] | | | | | | [address] | | | | | | [place] [address] | | | | | | [phone] | | | | | | | | +--------+---------+ + + + documented as of this encounter Visit Diagnoses Not on filedocumented in this encounter"
--- OUTSIDE RECORDS SUMMARY | ~2020-08-10 | XMS | Encounter Summary ---
Demographics + + + | Address | [address] | | | [place] [address] | + + + | Home Phone [...] Team Providers + +------+ + | Care Gear Finisher Name | Role | Phone | [...] Required | Rehabilitatio | | Yaneli, | [place] | | | | n | radiculopath | PA-C [address] | [place], | | | | | y Chronic | [address], | [place] [address] | | | | | low back | [address] | Phone: | | | | | pain Facet | [place], [place] | [phone] | | | | | arthritis of | [address] | Fax: | | | | | lumbar | Phone: | [phone] | | | | | region | [phone] | | | | | | [place] | Fax: | | | | | | stenosis of | [phone] | | | | | | lumbar [...] + + | 04/17/ | Office | [facility] | Bogdanowicz, | Left lumbar | | 2013 | Visit | PHYSIATRY [address] | [address] [address] | radiculopathy | | | | [address] | [address], [address] | (Primary Dx); | | | | [place], [place] | [place] [address] | Chronic low back | | | | [address] | [phone] | pain; Facet | | | | [phone] | | arthritis of lumbar | | [...] the procedure you must provide a cdl a driver to take you home. For all [...] me to refill this prescription as her [facility] care provider will not refill them either. [...] Therapy prescription has been given to the [facility]. 3. I did discussed neuropathic pain [...] [place] | | | | | | [id number] | | | | | | | | +--------+---------+ + + + | 09/01/ | Office | Cardiology | Monserrat Weems | | | 2020 | Visit | | [address] | | | | | | [address] | | | | | | [place] [address] | | | | | | [phone] | | | | | | | [...] radiculopathy ICD-9 Code 724.4 Kori Caputo | [facility] | | Joanne presents to the fluoroscopy suite for a | [facility] | | fluoroscopically-guided left L5-S1 [...] | | Steroid InjectionDiagnosis: Lumbar radiculopathyICD-9 Code 724.4Layanci Caputo | | Joanne presents to the fluoroscopy [...] + + | [address] | [address] | [place] | [phone] | | [facility] | | [address] | | | - IMAGING | | [...]
--- OUTSIDE RECORDS SUMMARY | ~2020-08-10 | XMS | Encounter Summary ---
Demographics + + + | Address | [address] | | | [place] [address] | + + + | Home Phone [...] Team Providers + +------+ + | Care Rivet Flunky Name | Role | Phone | + [...] | Closed | | | Diagnoses | Cuong, | Toñito, | | | | | | MD Maykel | Denys Wallis DO | | | | | Degenerative | [address] | | | | | lumbar | [address] | | | | | | spinal | [address] | [place], [place] | | | | | stenosis | [place], [place] | [address] | | | | | | [address] | Phone: | | | | | | Phone: | [phone] | | | | | | [phone] | Fax: | | | | | | Fax: | [phone] | | | | | | [phone] | | +--------+--------+ + + + + Encounter Details +--------+---------+ + + + | Date | Type | Department | Care Team | Description | +--------+---------+ + + + | 07/18/ | Office | [facility] | Denys Sibley, | Lumbar region | | 2018 | Visit | [facility] | DO [address] | somatic dysfunction | | | | [address]Y [address] | [place] | (Primary Dx); | | | | [address] | [address] | Intractable back | | | | [place] | | pain; Encounter for | | | | [address] | | long-term use of | | | | [phone] | | opiate analgesic; | | | [...] after bladder repair Arthralgia Asthma Asthma Cancer (HCC) 2004 breast Cerebrovascular accident (CVA) ([facility]) no per pt Chronic back pain Chronic back pain Concussion 07/2015 Preceeded by seizure Constipation COPD (chronic obstructive pulmonary disease) ([facility]) Degenerative disc disease Depression Depression Diabetes mellitus ([facility]) Diabetes mellitus, type 2 ([facility]) diet controlled Diarrhea Disorder of [...] Scoliosis Scoliosis of lumbar spine 04/17/2014 Seizure ([facility]) one due to meds, two [...] to physical therapy, mass age therapy, acupuncture, medication care manager, along with recommended psychological counseling , either privately, or in group sessions offered by private care individuals, community serv ices, or muslim organizations. Appropriate referrals were made at patient and/or provider request Narcan was prescribed, when appropriate, and patient instructed in its use for emergency on ly. Patient was given instructions on proper storage and disposal of medications including but not limited to current government regulations regarding this and or current official [facility] approved disposal sites. patient states that [...] Will return to office in 4 weeks, [facility] was consulted and appears appropriate, [...] and complications with the passage of time. nursing home use is also associated with depressions, [...] [address] | | | | | | [facility] [place] | | | | | | [address] | | | | | | | | +--------+---------+ + + + | 09/01/ | Office | Cardiology | Monserrat Weems | | 2019 | Visit | | [address] | | | | | | [address] | | | | | | [place] [address] | | | | | | [phone] | | | | | | | [...]
--- OUTSIDE RECORDS SUMMARY | ~2020-08-10 | XMS | Encounter Summary ---
Demographics + + + | Address | [address] | | | [place] [address] | + + + | Home Phone [...] Team Providers + +------+ + | Care Glove Pairer Name | Role | Phone | + [...] | | | | | | | RI SURG | | | | | | | IMPLNT | | | | | | | NEUROELECT,E | | | | | | | PIDURAL RI | | | | | | | IMPLANT | | | | | | | NEUROSTIM/RE | | | | | | | CEIVER RI | | | | | | | [...] + + | 08/03/ | Anesthesia | [facility] | Eileen YojanaLANE willis | | | 2019 | Event | [facility] | [address] | | | | | [address]PER[address] | [place] [address] | | | | | [address] | [phone] | | | | | [place], [place] | | | | | | [address] | | | | | | [phone] | | | +--------+ + + + + Anesthesia Record + + + + + | Procedure Name | Responsible | Anesthesia Start | Anesthesia Stop Time | | | Anesthesiologist | Time | | + + + + + | LAMINOTOMY THORACIC | [address] | 08/03/19926 | 08/03/19 1053 | | [...] +----+---+ + + | | 0 | [place] | | | | 9 | 43-degrees [...] 1506 by | | eral | Antecubital; [id number] | Mikayla Marcial, | Gamal Whitney, | | IV | catheter system; 20 gauge; 3; | RN | RN | | | removed per policy/procedure; | | | | | 08/04/19; 1506 | | | +--------+ + + + | Airway | Placement Date: 08/03/19; | 08/03/19 09 by | 08/03/19 1053 by | | [...] | | | | 08/03/19; Removal Time: 105 | | | +--------+ + + + [...] + + documented as of this encounter OR Notes Anesthesia Postprocedure Evaluation - Yojana Arellano CRNA - 08/03/2019 10:58 AM PDT ANESTHESIA POSTANESTHESIA EVALUATION Kori Mcintosh-Fawthrop 74 y.o. female 1945 [id number] Procedure(s) LAMINOTOMY THORACIC / LUMBAR W/ PLACEMENT SPINAL CORD STIMULATOR (N/A Spine T horacic) Cooperates? Yes Mental Status Performs simple tasks. Respiratory Satisfactory - Airway patent (self maintained). Cardiovascular Satisfactory - Blood pressure and heart rate acceptable Temperature Satisfactory Pain Satisfactory N/V Control Satisfactory Hydration Satisfactory - No signs of dehydration Vitals Value Taken Time Temp 36.1 C (97 F) 08/03/2019 10:56 Pulse 75 08/03/2019 10:56 Resp 18 08/03/2019 10:56 BP 137/83 08/03/2019 10:56 Arterial Line BP Arterial Line BP 2 SpO2 100 % 08/03/2019 10:56 Electronically signed by Yojana Arellano CRNA 08/03/2019 10:58 [facility] 1 0:58 AM PDTAnesthesia Procedure Notes - Yojana Arellano CRNA - 08/03/2019 9:52 AM PDTAssociate d Order(s): AirwayAnesthesia Airway Placement 08/03/2019 9:33 Preprocedure check: patient identified, oxygen, airway equipment checked, airway assessed a nd patient reassessment prior to induction Rapid Sequence Induction: no Mask ventilation: easy External maneuver: ramp position Successful technique: Mac Laryngoscope blade size: 3 Airway grade: 1 (Full view of glottis) Other equipment: stylette Attempts: 1 Airway type: endotracheal Size: 7.5 Cuffed: cuffed Route, reference point: right side of mouth Tube depth: 20 cm LDA Airway tube secured with: pink tape. Trauma: none Tube placement verification: bilateral chest rise, equal bilateral breath sounds and carbon dioxide detection Performing provider: Yojana Arellano CRNA Please see intraoperative grid for any additional medication documentation. nesthesia Preprocedure Evaluation - Yojana Arellano CRNA - 08/02/2019 4:44 PM PDTFormatting of this note might be di fferent from the original. ANESTHESIA PREANESTHESIA EVALUATION Kori Mcintosh-Martita 74 y.o. female 1945 [id number] Procedure(s): LAMINOTOMY THORACIC / LUMBAR W/ PLACEMENT SPINAL CORD STIMULATOR (N/A Spine T horacic) Medical,anesthesia, drug, allergy histories reviewed, NPO status verified. ECG reviewed. Labs reviewed. (-) perioperative beta-luna/statin not given/taken Reason s Beta Luna not given/taken:not applicable/Not taking Beta-Luna. . Review of Systems / Med History Anesthesia History (+) previous surgery or anesthesia Family Anesthesia History Family Anesthesia Negative except where noted below. Cardiovascular Value Ref Range & Units Status VENTRICULAR RATE EKG 60 BPM ATRIAL RATE 60 BPM P-R INTERVAL 160 ms QRS DURATION 80 ms Q-T INTERVAL 430 ms Q-T INTERVAL (CORRECTED) 430 ms P WAVE AXIS 67 degrees QRS AXIS -16 degrees T AXIS 68 degrees INTERPRETATION TEXT Normal sinus rhythm Cannot rule out Anterior infarct , age undetermined Abnormal ECG ECHO 2018 1. This was a technically difficult study with suboptimal views. 2. The left ventricle is normal in size, wall thickness and systolic function EF 60-65% . 3. The right ventricle is normal in size and function. 4. No significant valvular pathology. 5. There is no pericardial effusion.. , Exercise tolerance >4 METS(-) dyspnea on minimal ex ertion (-) hypertension, (-) dysrhythmias: (-) coronary artery disease. (+) PVD: . Pulmonary (+) pneumonia, Chronic Obstructive Pulmonary Disease.(-) shortness of breath. (-) sleep vice president integrated ea. (+) asthma. Gastrointestinal/Hepatic (+) acid reflux: without esophagitis and well controlled. (+) hep atitis (+) type A. Renal (+) acute renal failure. Endocrine (+) hypothyroidism. (+) Diabetes: type 2, controlled (Hgb A1C < 6.5), without complication s. Hematology/Other Negative except where noted below. Cancer Negative except where noted below. Obstetrics Negative except where noted below. Pediatric History Negative except where noted below. Neuromuscular (+) arthritis, back pain, TIA (1 months ago no defficits), scoliosis, chronic pain.(-) CVA. (+) seizures (last episode 4 years ago): Psychology (+) psychiatric history of post-traumatic stress disorder. Additional Comments: SACROILIITIS BURSITIS, HIP DISC DISEASE, LUMBAR BACK PAIN, LUMBAR OSTEOARTHRITIS, LUMBOSACRAL SPINE COUGH VARIANT ASTHMA Chronic diarrhea ESOPHAGEAL REFLUX GASTROPARESIS GENERALIZED ANXIETY DISORDER NAUSEA WITH VOMITING RESTLESS LEG SYNDROME HYPOGLYCEMIA INSOMNIA DUE TO MENTAL DISORDER Depression, major, recurrent - with multiple prior suicide attempts LUMBAR STRAIN DDD (degenerative disc disease), lumbar ORGANIC INSOMNIA UNSPECIFIED Left lumbar radiculopathy Acute renal failure ([facility]) Chronic low back pain Facet arthritis of lumbar region 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 Scoliosis of lumbar spine Cervical radiculopathy Myelopathy ([facility]) Right lumbar radiculopathy Acute alcoholic intoxication ([facility]) Acute respiratory failure ([facility]) Anemia, unspecified Anxiety state Aspiration pneumonia ([facility]) Chronic pain disorder Closed compression fracture of L5 vertebra ([facility]) Coma ([facility]) COPD (chronic obstructive pulmonary disease) ([facility]) Degenerative lumbar spinal stenosis Depression with suicidal ideation Encounter for long-term use of opiate analgesic Gait difficulty History of oral aphthous ulcers Hypotension, unspecified Hypothyroid Impaired mobility and ADLs Intervertebral disc disorders with radiculopathy, lumbosacral region Metabolic acidosis Other shock ([facility]) Overdose of muscle relaxant Palpitations Peripheral vertigo PPS (pelvic pain syndrome) Recurrent UTI Spondylosis without myelopathy or radiculopathy, cervical region Spondylosis without myelopathy or radiculopathy, lumbosacral region Chest pain Chronic bilateral low back pain without sciatica Chronic low back pain with sciatica Intractable back pain Lumbar region somatic dysfunction Low back ache Strain of lumbar region Spinal stenosis of lumbosacral region Physical Exam Airway MP II, TM <3 FB, Mouth opening >2 FB. Neck: full ROM, extends >30 degrees. Jaw protrus ion normal. Facial hair present: No Dental ; (+) dentures-lower and dentures-upper. CV cardiovascular normal Rhythm regular. Rate normal. Pulm Clear to auscultation bilaterally. Neuro Grossly normal. Anesthesia Plan ASA 3 Type: General. Induction: Intravenous. Potential problems: None anticipated. Monitors: Standard ASA monitors. Additional comments: NPO> 8 hrs, Mets>4, denies chest yessica n, SOB with activities, Labs reviewed & WNL except as o/w noted. Consent statement:Anesthetic plan, alternatives, risks and benefits discussed with patient. backache, blindness, blood transfusion, None, , discussed risks to teeth, disability, drug reaction, heart problems, ICU placement, infection, muscle aches, nausea, pain, periope rative CV events, post-op intubation, respiratory events, sore throat, stroke, voice injury, delirium. Consenting person understands and agrees to proceed . Electronically Signed by: Yojana Arellano CRNA ESig date/time: 08/02/2019 16:44 documented in this enco unter Miscellaneous Notes Addendum Note - Yojana Arellano CRNA - 08/03/2019 11:29 AM PDT Addendum created 08/03/19 1129 by Yojana Arellano CRNA Intraprocedure Meds edited nesthesia Post-op Gauthier doff - Yojana Arellano CRNA - 08/03/2019 10:57 AM PDT ANESTHESIA HANDOFF NOTE Kori Mcintosh-Fawthrop 74 y.o. female 1945 [id number] LAMINOTOMY THORACIC / LUMBAR W/ PLACEMENT SPINAL CORD STIMULATOR (N/A Spine Thoracic) HANDOFF NOTE Handoff Protocol Used: post-procedure handoff checklist completed The following were completed during the transfer of care: 1. Identification of patient 2. Identification of responsible practitioner (primary service) 3. Discussion of pertinent medical history 4. Discussion of the surgical/procedure course (procedure, reason for surgery, procedure pe rformed) 5. Intraoperative anesthetic management and issues/concerns 6. Expectations/plans for the early post-procedure period 7. Opportunity for questions and acknowledgement of understanding of report from receiving team Patient Location: Phase I Condition: awake Airway/O2: face mask with O2 Multimodal analgesia: multimodal analgesia used between 6 hours prior to anesthesia start t o PACU discharge The significant anesthesia concerns and VS in Epic were reviewed with the receiving team. Yojana Arellano CRNA 08/03/2019 10:57 [facility] 1 0:58 AM PDTdocumented in this encounter Plan of Treatment +--------+---------+ + + + | Date | Type | Specialty | Care Team | Description | +--------+---------+ + + + | 08/20/ | Office | Pain Medicine | Denys Sibley, | | | 2019 | Visit | | DO [address] | | | | | | [place] | | | | | | [address] | | | | | | | | +--------+---------+ + + + | 09/01/ | Office | Cardiology | Monserrat Weems | | | 2019 | Visit | | [address] | | | | | | [address] | | | | | | [place] [address] | | | | | | [phone] | | | | | | | [...] - 08/03/2019 9:52 AM PDT Anesthesia Airway [id number]/4/2019 | | 9:33Preprocedure check: patient identified, oxygen, [...] 10:31 | | | | | Starting Tue08/03/19 at 1031, | | AM PDT | [...]
--- OUTSIDE RECORDS SUMMARY | ~2020-08-10 | XMS | Encounter Summary ---
Demographics + + + | Address | [address] | | | [place] [address] | + + + | Home Phone [...] Providers + +------+ + | Care Color Mixer Name | Role | Phone | + +------+ + | Romy De La Paz MD | PCP | | + +------+ + Reason for Visit + +--------+ + | Reason | Onset | Comments | | | Date | | + +--------+ + | Appointment | 04/11/ | | | | 2020 | | + +--------+ + Encounter Details +--------+ + + + + | Date | Type | Department | Care Team | Description | +--------+ + + + + | 04/11/ | Telephone | [facility] | Alfredo Casillas DO | Appointment | | 2020 | | [facility] | [address] [facility] | | | | | [address] | [place] [address] | | | | | [facility], | [phone] | | | | | [place] [address] | | | | | | [phone] | | | +--------+ + + + [...] encounter Miscellaneous Notes Telephone Encounter - Jennifer Hicks, Steward/Stewardess Chief Cargo Vessel - 04/11/2020 11:52 AM PDTI called bethany kirk to inform her that for her appointment on 04/15 she should bring a copy of her recent im ages she had done to her appointment. We are going to need them. I left a Message to call u s back if she has questionsElectronically signed by Jennifer Back Caro Steward/Stewardess Chief Cargo Vessel at 2019 11:54 AM PDTdocumented in this encounter Plan of Treatment +--------+---------+ + + + | Date | Type | Specialty | Care Team | Description | +--------+---------+ + + + | 08/20/ | Office | Pain Medicine | Denys Sibley, | | | 2019 | Visit | | [address] | | | | | | [facility] [place] | | | | | | [id number] | | | | | | | | +--------+---------+ + + + | 09/01/ | Office | Cardiology | Monserrat Weems | | 2019 | Visit | | [address] | | | | | | [address] | | | | | | [place] [address] | | | | | | [phone] | | | | | | | | +--------+---------+ + + + documented as of this encounter Visit Diagnoses Not on filedocumented in this encounter"
--- OUTSIDE RECORDS SUMMARY | ~2020-08-10 | XMS | Encounter Summary ---
Demographics + + + | Address | [address] | | | [place] [address] | + + + | Home Phone [...] Team Providers + +------+ + | Care Pairer Odds Name | Role | Phone | + +------+ + PCP | Unavailable | + +------+ + Encounter Details +--------+ + + + + | Date | Type | Department | Care Team | Description | +--------+ + + + + | 10/31/ | Hospital | [facility] | | | | 1999 - | Encounter | [facility] | | [facility] | | [facility] [address] | | | | 03/16/ | | [place] | | | | 1999 | | [address] | | | | | | [phone] | | | +--------+ + + + [...] [place] | | | | | | [address] | | | | | | | | +--------+---------+ + + + | 09/01/ | Office | Cardiology | Monserrat Weems | | | 2019 | Visit | | [address] | | | | | | [address] | | | | | | [place] [address] | | | | | | [phone] | | | | | | | | +--------+---------+ + + + documented as of this encounter Visit Diagnoses Not on filedocumented in this encounter"
--- OUTSIDE RECORDS SUMMARY | ~2020-08-10 | XMS | Encounter Summary ---
Demographics + + + | Address | [address] | | | [place] [address] | + + + | Home Phone | | + + + | Preferred Language | Unknown | + + + | Marital Status | | + + + | Sikh Affiliation | 1013 | + + + | Race | White | + + + | Ethnic Group | Not or | + + + Author + + + | Author | [facility] | | | and [place] | + + + | Organization | [facility] | | | [...] Providers + +------+ + | Care Nurse Orthopaedic Name | Role | Phone | + [...] + + | 12/17/ | Office | [facility] | Denys Sibley, | S/P insertion of | | 2020 | Visit | [facility] | DO [address] | spinal cord | | | | [address] | [place] | stimulator (Primary | | | | [address] | [address] | Dx); Spinal stenosis | | | | [place], [place] | | of lumbosacral | | | | [address] | | region; Lumbar | | | | [phone] | | region somatic | | | [...] in the office today for medication evaluation stephany pascual. Current pain medication we give her chronic pain syndrome is Vienna 10/325 1 p.o. every 4 ho urs [...] including but not limited to physical therapy, hearing care professional, acupuncture, massage therapy, and nutritional healt h [...] Author Status Filed Medication Agreement Rupa Nye, Brickmason Apprentice Active 11/14/2019 1:49 PM Pain Contract- Dr. Sibley 11/14/2019 PEG Pain screening tool (Pain, enjoyment, general activity) Total score: (Printable questionnaires in Italian ) Interpretation of Total Score: PEG scores are used to track changes over time. It should de crease after therapy has begun. Last 4 PEG Scores: No flowsheet data found. Opioid Risk Tool (ORT): Total Score Pulse: 61 Resp: 16 BP: 116/53 SpO2: 100 % (From Chronic Pain tab; printable questionnaires in Italian) Interpretation of Total Score: 0 to 3 [...] reflux disease Acute renal failure ([facility]) April 2013 Adverse effect of anesthesia hx hallucinations after anesthesia x 3 yrs ago. Anesthesia hallucinated after bladder repair Arthralgia Arthritis Asthma Asthma Back pain Cancer ([facility]) 2004 breast Cataract Cerebrovascular accident (CVA) ([facility]) no per pt Chronic back pain Chronic back pain Chronic constipation Concussion 07/2015 Preceeded by seizure Constipation COPD (chronic obstructive pulmonary disease) ([facility]) Degenerative disc disease Depression Depression Diabetes mellitus ([facility]) Diabetes mellitus, type 2 ([facility]) diet controlled Diabetes type 2, controlled ([facility]) diet controlled Diarrhea Disorder of thyroid [...] of lumbar spine 04/17/2014 Seizure ([facility]) one due to meds, two due [...] reflux disease Acute renal failure ([facility]) April 2013 Adverse effect of anesthesia hx hallucinations after anesthesia x 3 yrs ago. Anesthesia hallucinated after bladder repair Arthralgia Arthritis Asthma Asthma Back pain Cancer ([facility]) 2004 breast Cataract Cerebrovascular accident (CVA) ([facility]) no per pt Chronic back pain Chronic back pain Chronic constipation Concussion 07/2015 Preceeded by seizure Constipation COPD (chronic obstructive pulmonary disease) ([facility]) Degenerative disc disease Depression Depression Diabetes mellitus ([facility]) Diabetes mellitus, type 2 ([facility]) diet controlled Diabetes type 2, controlled ([facility]) diet controlled Diarrhea Disorder of thyroid [...] KYPHOPLASTY; Surgeon: Alfredo Casillas DO; Location: [facility] MAIN OR; Service: Pa in Management; Laterality: N/A; L5 FRACTURE SURGERY ANKLE HERNIA REPAIR HYSTERECTOMY HYSTERECTOMY LAMINECTOMY N/A 08/03/2019 Procedure: LAMINOTOMY THORACIC / LUMBAR W/ PLACEMENT SPINAL CORD STIMULATOR; Surgeon: Suly Hutchins MD; Location: [facility] MAIN OR OTHER SURGICAL [...] reviewed, listed controlled substances are consistent with [facility] prescriptions and patient reported use. Controlled [...] = high risk) Daily Opioid Dose = Vienna 10/325 1 p.o. every 4 hours as [...] imited to physical therapy, massage therapy, acupuncture, hearing care professional, along with niki mmended psychological counseling, either privately, or in group sessions offered by private care individuals, community services, or roman catholic organizations. Appropriate referrals were made at patient [...] weeks. This document has been created using Spark Voice Recognition software and [employer]. The entry has been reviewed for content and accuracy, but there may still exist "sound alike" party plan sales director word errors and/or unintended additions and [...] [address] | | | | | | [place], [place] | | | | | | [address] | | | | | | | | +--------+---------+ + + + | 09/01/ | Office | Cardiology | ReneecabreraMonserrat | | | 2019 | Visit | | [address] | | | | | | [address] | | | | | | [place] [address] | | | | | | [phone] | | | | | | | [...]
--- OUTSIDE RECORDS SUMMARY | ~2020-08-10 | XMS | Encounter Summary ---
Demographics + + + | Address | [address] | | | [place] [address] | + + + | Home Phone [...] Author + + + | Author | [facility] | + + + | Organization | [facility] | + + + | Address | Unknown | + + + | Phone | Unavailable | + + + Support + + +---------+ + | Name | Relationship | Address | Phone | + + +---------+ + | Royce Menchaca | ECON | Unknown | | + + +---------+ + Care Team Providers + +------+ + | Care Senior Ui Ux Developer Name | Role | Phone | + +------+ + | Miquel Calhoun MD | PCP | | + +------+ + Encounter Details +--------+ + + + + | Date | Type | Department | Care Team | Description | +--------+ + + + + | 11/29/ | Documentati | [facility] | Khushbu Cortez, | | | 2013 | on | [facility] | CEMENT BOAT AND BARGE LOADER [place], [place] | | | | | [address] | [address] | | | | | [address] | | | | | | R[place]hi, [address] [place] [address] | | | | | | [place], [place] | | | | | | [address] | | | | | | [phone] | | | +--------+ + + + [...] Telephone Encounter - Khushbu Cortez LCSW - 11/29/2013 10:08 AM PSTI gave nurse Jaky dillon $100 in gas cards to give to this patient when she arrives for her appt today. I will n ot be available, so Ms Kennedy will present them to her. Pt needs financial assistance for logan blankenship to [facility] from [facility] for her care. The assistance comes from the [facility] [employer]. This is a one time offering for this patient. Khushbu Cortez LCSW documented in this encounter Plan of Treatment Not on filedocumented as of this encounter Visit Diagnoses Not on filedocumented in this encounter"
--- OUTSIDE RECORDS SUMMARY | ~2020-08-10 | XMS | Encounter Summary ---
Demographics + + + | Address | [address] | | | [place] [address] | + + + | Home Phone [...] Team Providers + +------+ + | Care Dealer Analyst Name | Role | Phone | [...] + + | 11/01/ | Telephone | [facility] | Shay Waite | Medication Problem | | 2012 | | [address]YSIATRY [address] | [address] | | | | | [facility] [address] | [place] | | | | | [facility] | [address] | | | | | [address] | | | | | | [phone] | | | +--------+ + + + [...] - 11/03/2012 2:25 PM PST Addended by: Davno WAITE on: 11/03/2012 14:25 Modules accepted: Orders elephone Encoun ter - Shay Waite MD - 11/03/2012 2:11 PM PSTI can't imagine that her insurance won 't pay for Flexeril. It is not an expensive medication. I will place an order for it and w e'll see if it gets denied. 2:1 9 PM PSTTelephone Encounter - aJzzy Ibarra - 11/03/2012 12:39 PM PSTPatient confirmed [...] [place] | | | | | | [address] | | | | | | | | +--------+---------+ + + + | 09/01/ | Office | Cardiology | Monserrat Weems | | | 2019 | Visit | | [address] | | | | | | [address] | | | | | | [place] [address] | | | | | | [phone] | | | | | | | | +--------+---------+ + + + documented as of this encounter Visit Diagnoses + + | Diagnosis | + + | Back pain - Primary Backache, unspecified | + + documented in this encounter"
--- OUTSIDE RECORDS SUMMARY | ~2020-08-10 | XMS | Encounter Summary ---
Demographics + + + | Address | [address] | | | [place] [address] | + + + | Home Phone [...] Team Providers + +------+ + | Care Multifocal Button Grinder Name | Role | Phone | + +------+ + | Miquel Calhoun MD | PCP | | + +------+ + Reason for Visit +--------+--------+ + | Reason | Onset | Comments | | | Date | | +--------+--------+ + | Other | 06/28/ | To discuss pain log reponse | | | 2012 | | +--------+--------+ + Encounter Details +--------+ + + + + | Date | Type | Department | Care Team | Description | +--------+ + + + + | 06/28/ | Telephone | [facility] | Shay Dietz | Other (To discuss | | 2012 | | PHYSIATRY [address] | [address] | pain log reponse) | | | | [address] | [place], [place] | | | | | [place], [place] | [address] | | | | | [address] | | | | | | [phone] | | | +--------+ + + + [...] Telephone Encounter - Kylee Wright RN - 11/23/2013 10:28 AM PSTI Kylee Wright was pract icing as a MA-R, not a RN at this time. elephone Encounter - Kylee Wright RN - 06/28/2013 4:39 PM PDTCalled pt and left message on answering janel e to call Dr. Dietz's office back regarding his response to her pain log. documented in this encounter Plan of Treatment +--------+---------+ + + + | Date | Type | Specialty | Care Team | Description | +--------+---------+ + + + | 08/20/ | Office | Pain Medicine | Denys Sibley, | | | 2019 | Visit | | [address] | | | | | | [place] | | | | | | [address] | | | | | | | | +--------+---------+ + + + | 09/01/ | Office | Cardiology | Monserrat Weems | | | 2019 | Visit | | [address] | | | | | | [address] | | | | | | [facility] [address] | | | | | | [phone] | | | | | | | | +--------+---------+ + + + documented as of this encounter Visit Diagnoses Not on filedocumented in this encounter"
--- OUTSIDE RECORDS SUMMARY | ~2020-08-10 | XMS | Encounter Summary ---
Demographics + + + | Address | [address] | | | [place] [address] | + + + | Home Phone | | + + + | Preferred Language | Unknown | + + + | Marital Status | | + + + | Evangelical Affiliation | 1013 | + + + | Race | White | + + + | Ethnic Group | Not or | + + + Author + + + | Author | [facility] | | | and [place] | + + + | Organization | [facility] | | | [...] Team Providers + +------+ + | Care Licensed Nurse Practitioner Name | Role | Phone | + [...] | Cervical | Darrin | [address] | | | | | radiculopath | [address] | [place], | | | | | y | [address] | [place] | | | | | Myelopathy | AVE | [address] | | | | | (HCC) | [place], [place] | Phone: | | | | | Procedures | [address] | [phone] | | | | | MRI Cervical | Phone: | Fax: | | | | | Spine wo | [phone] | [phone] | | | | | Contrast | Fax: | | | | | | | [phone] | | +--------+--------+ + + + + [...] | stenosis of | [place], | [address] | | | | | lumbar | [address] | [address] | | | | | region | [address], | [place], | | | | | Chronic low | [address] | [place] [address] | | | | | back pain | [place] | Phone: | | | | | Facet | [address] | [phone] | | | | | arthritis of | Phone: | Fax: | | | | | lumbar | [phone] | [phone] | | | | | region | Fax: | | | | | | Scoliosis of | [phone] | | | | | | lumbar | | | | | | | spine Acute | | | | | | | renal | | | | | | | failure | | | | | | | ([facility]) | | | | | | | Procedures | | | | | | | PA OFFICE | | | | | | [...] + + | 07/26/ | Office | [facility] | Darrin Hoyos | Foraminal stenosis | | 2013 | Visit | NEUROSURGERY [address] | [address] | of lumbar region - | | | | [address] | [address] [place], [place] | left L5-S1 (Primary | | | | [place] | [address] | Dx); Scoliosis of | | | | [address] | | lumbar spine; Left | | | | [phone] | | lumbar | | | | [...] the MRI was recently pe rformed at [facility] of your lumbar spine. After these tests have been completed we w ill see you back in review the resultsElectronically signed by PEE Somers at 11:54 AM PDT documented in this encounter Progress Notes Darrin Hoyos PA - 07/26/2014 11:13 AM PDTFormatting of this note might be differen t from the original. PEE Vang [address] [facility] [address] [place], [place] [id number] FAX: NEUROSURGERY HISTORY AND PHYSICAL EXAMINATION CHIEF [...] ently a also seen a surgeon in [facility] he stated she did not need to have surgery pawel dave to her report. She also reports she had a recent MRI in the [facility] which I do not marcos ve to review. The patient states that most activities make her back and leg pain worse. 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 CRANIAL NERVES: II: Acuity is intact. [...] Intrinsics 5 4 Ulnar Intrinsics 5 4 Canal Structure Operator Strength 5 4 Hip Flexion 5 [...] today, and I greatly appreciate the r hilda. 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 [...] 07/26/2014 12:03 documented in th is encounter Miscellaneous Notes Miscellaneous - [facility] - 07/26/2014 12:00 AM PDT iscellaneous - [facility] - 07/26/2014 12:00 AM PDTEle ctronically signed by Milan Leo at 07/31/2014 4:41 PM PDTdocumented in this encounter Plan of [...] [place] | | | | | | [address] | | | | | | | | +--------+---------+ + + + | 09/01/ | Office | Cardiology | Monserrat Weems | | | 2019 | Visit | | [address] | | | | | | [address] | | | | | | [place] [address] | | | | | | [phone] | | | | | | | [...]
--- OUTSIDE RECORDS SUMMARY | ~2020-08-10 | XMS | Encounter Summary ---
Demographics + + + | Address | [address] | | | [place] [address] | + + + | Home Phone [...] Team Providers + +------+ + | Care Electrician Wiring Name | Role | Phone | + [...] + + | 08/31/ | Telephone | [facility] | Alfredo Casillas DO | Triage | | 2019 | | [facility] | [address] | | | | | MEDICINE RADHA | [place] [address] | | | | | [address] | [phone] | | | | | [place], [place] | | | | | | [address] | | | | | | [phone] | | | +--------+ + + + [...] Dr. Hutchins's office was calling her. [facility] patient so she may speak with his [...] | | | | | | [place] | | | | | | [address] | | | | | | | | +--------+---------+ + + + | 09/01/ | Office | Cardiology | Monserrat Weems | | | 2019 | Visit | | [address] | | | | | | [address] | | | | | | [place] [address] | | | | | | [phone] | | | | | | | | +--------+---------+ + + + documented as of this encounter Visit Diagnoses Not on filedocumented in this encounter"
--- OUTSIDE RECORDS SUMMARY | ~2020-08-10 | XMS | Encounter Summary ---
Demographics + + + | Address | [address] | | | [place] [address] | + + + | Home Phone [...] + + + | Author | [facility] | + + + | Organization | [facility] | + + + | Address | Unknown | + + + | Phone | Unavailable | + + + Support + + +---------+ + | Name | Relationship | Address | Phone | + + +---------+ + | Royce Menchaca | ECON | Unknown | | + + +---------+ + Care Team Providers + +------+ + | Care Wildlife Conservation Professor Name | Role | Phone | + +------+ + | Miquel Calhoun MD | PCP | | + +------+ + Encounter Details +--------+ + + + + | Date | Type | Department | Care Team | Description | +--------+ + + + + | 11/12/ | Telephone | [facility] | Khushbu Cortez, | | | 2013 | | [facility] | [place], [place] | | | | | [address] | [address] | | | | | [address] | | | | | | [place], [address] [place] [address] | | | | | | [place], [place] | | | | | | [address] | | | | | | [phone] | | | +--------+ + + + [...] Telephone Encounter - Khushbu Cortez LCSW - 11/12/2013 3:51 PM ADRYIbethmckennarichie called to [facility] that she is coming to [facility] on Nov 29. We agreed that I will give her gas support when richie arrives. She mentioned $50, but we had agreed that I would give her $100, so I will do dimitry priscilla Sheikh will drive over the day before and stay with her son. Khushbu Cortez LCSW documented in this encounter Plan of Treatment Not on filedocumented as of this encounter Visit Diagnoses Not on filedocumented in this encounter"
--- OUTSIDE RECORDS SUMMARY | ~2020-08-10 | XMS | Clinical Summary ---
Demographics + + + | Address | [address] | | | [place] [address] | + + + | Home Phone [...] Team Providers + +------+ + | Care Well Drill Operator Name | Role | Phone | + +------+ + | Oxana Nye | PCP | | + +------+ + Source Comments [facility] is fully live on both [facility] and [facility] In[facility] Allergies + + + + + + [...] + + Plan of Treatment + + +-------+ + | Health Maintenance | Due Date | Last | Comments | | | | Done | | + + +-------+ + | Mammogram | | | | | | 7 | | | + + +-------+ + | Pneumococcal | | | | | vaccination (1 of | 2 | | | | - PPSV23) | | | | + + +-------+ + | Influenza (Flu) | | | | | vaccination: MyChart | 0 | | | | opt out (#1) | | | | + + +-------+ + Results Not on filefrom Last 3 [...] + +--------+ | MEDICARE | MEDICA | [id number] | | [phone] | [address] | Medica | | | RE A & | | [phone] | [address] | | | B | | esent | | [place], [place] | | | | | | | | [address] | | + +--------+ +--------+ + +--------+ | [employer] | AARP | [id number] | 07/01/20 | [phone] | [address] | Indemn | | RETIRED PEOPLE | | | 12-Pre | 9 | [phone] | ity | | | | | sent | | [place] | | | | | | | | [address] | | + +--------+ +--------+ + +--------+ + +--------+ +--------+ + + | Guarantor Name | Accoun | Relation to | Date | Phone | Billing Address | | | t Type | Patient | of | | | | | | | | | | + +--------+ +--------+ + + | Tyrese Rubio | Person | Self | [birth year] | [address] | | mandeep Caputo | antonio/Benji | | 1945 | [phone] | [address] [place] | | | jose | | | 8 ([place]oyd) | [address] | + +--------+ +--------+ + +
--- OUTSIDE RECORDS SUMMARY | ~2020-08-10 | XMS | Encounter Summary ---
Demographics + + + | Address | [address] | | | [place] [address] | + + + | Home Phone [...] Team Providers + +------+ + | Care Ager Tender Name | Role | Phone | [...] + + | Closed | Specialty | Home Health | Diagnoses | Km Acute | | | | Services | Services | Lumbar back | Care Fl 3 | | | | Required | | pain | [address] | | | | | | Chronic | [address] | | | | | | bilateral | [place], [place] | | | | | | low back | [address] | | | | | | pain with | Phone: | | | | | | right-sided | [phone] | | | | | | sciatica | Fax: | | | | | | | [phone] | | +--------+ + + + + [...] + + | 08/03/ | Hospital | [facility] | Maykel Hutchins MD | BACK PAIN, LUMBAR | | 2019 - | Encounter | [facility] | [address] | (Primary Dx); | | | | CARE FLOOR [address] | [address] [address] [place], [place] | Chronic bilateral | | 08/04/ | [address] | [address] | low back pain with | | 2019 | | [place], [place] | | right-sided sciatica | | | | [address] | | | | | | [phone] | | | +--------+ + + + [...] note might be different from t manolo original. [facility]. 08/04/2019 DISCHARGE SUMMARY PATIENT NAME: Kori [...] by elevating your feet Date Last Reviewed: [id number] [employer]. [address] [place] [address], [place] [address]. All righ ts reserved. This information is not intended as a substitute for professional medical care. Always follow your healthcare professional's instructions. Acetaminophen; Hydrocodone tablets or capsules Brand Names: Anexsia, Lorcet, Lorcet HD, Lorcet Plus, Lortab, [place], Verdrocet, Vicodin, Vi codin ES, Vicodin HP, [...] information carefully each time. Talk to your section forest fire warden regarding the use of this medicine in children. Special care may be needed. What side effects may I notice from receiving this medicine? Side effects that you should report to your doctor or health director of patient care as soon as p ossible: allergic [...] attention (report to your doctor or health director of patient care if they continue or are bothersome): [...] [facility] at [phone] or your [facility] to find a site. If you [...] this medicine? Tell your doctor or health director of patient care if your pain does not go [...] not take more medicine than directed. Dereck aramis emergency for help if you have problems [...] Decreased | | | | | | manager terminal current | Responsiveness (May | | | [...] Faria MSW - 08/04/2019 2:12 PM PDTCase advertising operations manager sent out Home Health order to Kadi Diazd today. The patient would need to follow [...] her up today to go home to [facility]. Past Medical History: Diagnosis Date Acid reflux disease Acute renal failure (HCC) April 2013 Adverse effect of anesthesia hx hallucinations after anesthesia x 3 yrs ago. Anesthesia hallucinated after bladder repair Arthralgia Arthritis Asthma Asthma Back pain Cancer ([facility]) 2004 breast Cataract Cerebrovascular accident (CVA) ([facility]) no per pt Chronic back pain Chronic back pain Chronic constipation Concussion 07/2015 Preceeded by seizure Constipation COPD (chronic obstructive pulmonary disease) ([facility]) Degenerative disc disease Depression Depression Diabetes mellitus ([facility]) Diabetes mellitus, type 2 (HCC) diet controlled Diabetes type 2, controlled ([facility]) diet controlled Diarrhea Disorder of [...] of lumbar spine 04/17/2014 Seizure ([facility]) one due to meds, two due to dehydration at least couple years ago Strain of lumbar region 02/25/2019 Syncope and collapse Tardive dyskinesia Use of cane as ambulatory aid Current Facility-Administered Medications Medication Dose Route Frequency Provider Last Rate Last Dose balanced electrolytes in water (PLASMALYTE-148/NORMOSOL-R) infusion Intravenous Christy Arellano CRNA 50 mL/hr at 08/03/19 0753 docusate sodium (COLACE) capsule 100 mg 100 mg Oral BID PRN KANG Davis HYDROcodone-acetaminophen (NORCO) 10-325 mg per tablet 1 tablet 1 tablet Oral Q4H PRN KANG Davis 1 tablet at 08/04/19 0502 HYDROmorphone (DILAUDID) [...] chloride 0.45% (1/2 NS) infusion Intravenous Continuous Myakel Hutchins MD 100 mL /hr at 08/03/19 [...] To Stay over Night/general Dietvorb Julien Guzman. Bogdanrn Jane Vaca RN - 08/03/2019 3:02 PM PDTPT With Pt. Robelin documented in this encounter H&P Notes Maykel [...] AM PDTPlan SCSTIM Will proceed as planned. ulien Guzman ARNP - 12/2018 8:49 AM PDT CC: [...] Asthma Asthma Back pain Cancer ([facility]) 2004 breast Cataract Cerebrovascular accident (CVA) ([facility]) no per pt Chronic back pain Chronic back pain Chronic constipation Concussion 07/2015 Preceeded by seizure Constipation COPD (chronic obstructive pulmonary disease) ([facility]) Degenerative disc disease Depression Depression Diabetes mellitus (HCC) Diabetes mellitus, type 2 (HCC) diet controlled Diabetes type 2, controlled ([facility]) diet controlled Diarrhea Disorder of [...] Procedure: KYPHOPLASTY; Surgeon: Alfredo Casillas DO; Location: [facility] MA[facility] OR; Service: Pa in Management; [...] level: Not on file Occupational History Occupation: [employer] Tobacco Use Smoking status: Never Smoker Smokeless [...] a walker and bedside commode Plan of Jairo Fong RN - 08/04/2019 2:12 AM PDT Problem: [...] SCStimulator device placed. Surgeon: Maykel Hutchins MD Scientific Informatics Project Leader(s): CATHIE Earl Anesthesia: General endotrachial anesthesia Estimated Blood Loss: Less Than 50 ml Other: Not applicable Indications: See pre-operative history and physical. Findings: C/w above. Complications: none Description of Procedure: The patient was signed preoperatively of preoperative Anaprox ad ministered and preoperative timeout performed. The patient was placed prone on a standard Wi lson frame regular table. Orthogonal x-ray identified [...] to Stay overnight and clear Liquid Diet. Eduardronically signed by Jane Vaca RN at 08/03/2019 4:29 PM PDT Plan of Jane Monet RN - 08/03/2019 3:34 PM PDTPT With Pt. Eduardronically signed by Jane Vaca RN at 08/03/2019 3:34 PM PDT Plan of Chiquita Holman PT - 08/03/2019 3:00 PM PDT [facility] OPIB Plan of Care Initial Evaluation Note Patient Name: Kori LeighFawthrop Date of Onset of Illness/Injury or Date [...] Therapy Discharge Recommendations are: Recommended discharge disposition: snf facility(or home with assist) Post discharge physical [...] HOB elevated Supine to Sit, Level of [place]ock: modified independent Sit to Supine, Level of [place]: modified independent Impairments: strength decreased Transfers Bed-Chair, Level of [place]: minimal assist (75% patient effort) Chair-Bed, Level of [place]: minimal assist (75% patient effort) Pjl-Fuhiy-Nfb, Assistive Device: cane (straight, single point) Sit-Stand, Level of [place]: contact guard assist Stand-Sit, Level of [place]: contact guard assist [id number]-Mcf, Assistive Device: cane (straight, single point) Safety Issues: balance decreased during turns, step length decreased, weight-shifting abili ty decreased Impairments: strength decreased, impaired balance Gait Level of Bannock: contact guard assist, minimal assist (75% patient [...] Standing Balance: Dynamic: poor balance ROM Limited LEO THACKER WFL. BLE WFL Strength BLE WFL though impaired overall PT Goal Review Date Most Recent Value STG Review Date 08/10/19 at 08/03/2019 1500 All Transfers Goal Most Recent Value LTG Status new at 08/03/2019 1500 LTG [place] Level modified independent at 08/03/2019 1500 LTG Assistive Device cane (straight, single point) at 08/03/2019 1500 Gait Goal Most Recent Value LTG Status new at 08/03/2019 1500 LTG [place] Level modified independent at 08/03/2019 1500 LTG Assistive Device cane (straight, single point) at 08/03/2019 1500 LTG Distance (feet) 150 at 08/03/2019 1500 Stair Goal Most Recent Value LTG Status new at 08/03/2019 1500 LTG [place] Level modified independent at 08/03/2019 1500 LTG [...] F | | | | | | [place] [address] | | | | | | [phone] | | | | | | | [...] | | | Needs | | | CO CHAIRMAN | | | reques | | | [...] Testing | 65 - 99 mg/dL | [facility] | | | POC | performed at [facility];[address] | | LABORATORY | | | | [address] [facility];[place], [place] | | | | | | [address] | | | | + + + + + + + + | Specimen | + + | | + + + + + + + | Performing | Address | City/State/Zipcode | Phone Number | | Organization | | | | + + + + + | [facility] | [address] | [place] [address] | [phone] | + + + + + POC Glucose (08/03/2019 4:15 PM PDT) + + + + + + | Component | Value | Ref Range | Performed | Pathologist | | | | | At | Signature | + + + + + + | Glucose, | 99Comment: Testing | 65 - 99 mg/dL | [facility] | | | POC | performed at [facility];[address] | | LABORATORY | | | | [address];[place] | | | | | | [address] | | | | + + + + + + + + | Specimen | + + | | + + + + + + + | Performing | Address | City/State/Zipcode | Phone Number | | Organization | | | | + + + + + | [facility] | [address] | [place] [address] | [phone] | + + + + + POC [...] | | | POC | performed at [facility];[address] | | LABORATORY | | | | [address];[place], [place] | | | | | | [address] | | | | + + + + + + + + | Specimen | + + | | + + + + + + + | Performing | Address | City/State/Zipcode | Phone Number | | Organization | | | | + + + + + | [facility] | [address] | [place] [address] | [phone] | + + + + + POC [...] | | | POC | performed at [facility];[address] | | LABORATORY | | | | [address];[place] | | | | | | [address] | | | | + + + + + + + + | Specimen | + + | | + + + + + + + | Performing | Address | City/State/Zipcode | Phone Number | | Organization | | | | + + + + + | [facility] | [address] | [place] [address] | [phone] | + + + + + LINSEY [...] Note | + + | Junior, Reji Results In - 08/03/2019 11:05 AM PDT [...] | | | POC | performed at [facility];[address] | | LABORATORY | | | | [address];[place] | | | | | | [address] | | | | + + + + + + + + | Specimen | + + | | + + + + + + + | Performing | Address | City/State/Zipcode | Phone Number | | Organization | | | | + + + + + | [facility] | [address] | [place] [address] | [phone] | + + + + + POC Glucose (08/03/2019 9:14 AM PDT) + + + + + + | Component | Value | Ref Range | Performed | Pathologist | | | | | At | Signature | + + + + + + | Glucose, | 80Comment: Testing | 65 - 99 mg/dL | [facility] | | | POC | performed at [facility];[address] | | LABORATORY | | | | [address];[place] | | | | | | [address] | | | | + + + + + + + + | Specimen | + + | | + + + + + + + | Performing | Address | City/State/Zipcode | Phone Number | | Organization | | | | + + + + + | [facility] | [address] | [place] [address] | [phone] | + + + + + Type [...] + + + | BB [facility] | [id number] | | [facility] | | | | | | LABORATORY | | + + + + + + | BB [facility] | Testing performed at | | [facility] | | | | [facility];[address] | LABORATORY | | | | [address];[place] [address] | | | | + + + + + + + + | Specimen | + + | Blood | + + + + + + + | Performing | Address | City/State/Zipcode | Phone Number | | Organization | | | | + + + + + | [facility] | [address] | [place] [address] | [phone] | + + + + + POC Glucose (08/03/2019 7:23 AM PDT) + + + + + + | Component | Value | Ref Range | Performed | Pathologist | | | | | At | Signature | + + + + + + | Glucose, | 77Comment: Testing | 65 - 99 mg/dL | [facility] | | | POC | performed at [facility];[address] | | LABORATORY | | | | [address];[place], [place] | | | | | | [address] | | | | + + + + + + + + | Specimen | + + | | + + + + + + + | Performing | Address | City/State/Zipcode | Phone Number | | Organization | | | | + + + + + | [facility] | [address] | [place] [address] | [phone] | + + + + + documented [...] | Pain, Starting Tue08/03/19 at | | PM PDT | | | | | 1036, [...] 5 MIN PRN, Pain, Initial | | PM PDT | | | | | postop [...] | | | | | | longer, xfmduz-nio-ncayh use of | | | | | [...] 11:48 | | | | | | AM PDT | | | | +-------+ +--------+---+---+ | Given | 08/03/20 | 25 mcg | | | | | 19 11:30 | | | | | | AM [...] Intravenous, EVERY 5 MIN PRN, | | PM PDT | | [...] | | | | | | | gexvyn-pfc-yfewd use of at least | | | [...] 11:59 | | | | | | AM PDT | | | | +-------+ +--------+---+---+ | Given | 08/03/20 | 0.6 mg | | | | | 19 11:37 | | | | | | AM PDT | | | | +-------+ +--------+---+---+ +---+---+ | | | +---+---+ + +-------+ +-------+---+---+ | ketorolac (TORADOL) injection | Given | 08/03/20 | 30 mg | | | | 30 mg 30 mg, Intravenous, ONCE | | 19 11:12 | | | | | PRN, Pain, Starting Tue08/03/19 | | AM PDT | | | | | at [...] Starting Tue08/03/19 at 1036, For | | AM PDT | | | | | 1 [...] | pre-op, Starting Tue08/03/19 at | | AM PDT | | | | | 0720, [...] mg, Oral, ONCE, 08/04/19 | | 19 12:56 | | | | | at 0015, For 1 dose, One time | | AM PDT | | | | | order [...]
--- OUTSIDE RECORDS SUMMARY | ~2020-08-10 | XMS | Encounter Summary ---
Demographics + + + | Address | [address] | | | [place] [address] | + + + | Home Phone [...] Team Providers + +------+ + | Care Workday Director Name | Role | Phone | + +------+ + | Romy De La Paz MD | PCP | | + +------+ + Reason for Visit + +--------+ + | Reason | Onset | Comments | | | Date | | + +--------+ + | Screening For | 04/14/ | | | Communicable Disease | 2020 | | + +--------+ + Encounter Details +--------+ + + + + | Date | Type | Department | Care Team | Description | +--------+ + + + + | 04/14/ | Telephone | [facility] | Alfredo Casillas, DO | Screening For | | 2019 | | [facility] | [address] [facility] | Communicable Disease | | | | MED[address] | [place] [address] | | | | | [facility], | [phone] | | | | | [place] [address] | | | | | | [phone] | | | +--------+ + + + [...] this encounter Miscellaneous Notes Telephone Encounter - Liset De La Torre, Radial Drill Press Operator For Plastic - 04/14/2020 9:25 AM PDT .LVM regarding COVID screening documented in this encounter Plan of Treatment +--------+---------+ + + + | Date | Type | Specialty | Care Team | Description | +--------+---------+ + + + | 08/20/ | Office | Pain Medicine | Denys Sibley, | | | 2019 | Visit | | [address] | | | | | | [place] | | | | | | [id number] | | | | | | | | +--------+---------+ + + + | 09/01/ | Office | Cardiology | Monserrat Weems | | 2019 | Visit | | [address] | | | | [address] | | | | | | [place] [address] | | | | | | [phone] | | | | | | | | +--------+---------+ + + + documented as of this encounter Visit Diagnoses Not on filedocumented in this encounter"
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
--- OUTSIDE RECORDS SUMMARY | ~2020-08-10 | XMS | Encounter Summary ---
Demographics + + + | Address | [address] | | | [place] [address] | + + + | Home Phone [...] Providers + +------+ + | Care Molding Room Supervisor Name | Role | Phone | [...] + + | 05/09/ | Telephone | [facility] | Nick Martinez, | Results, Imaging | | 2017 | | [address] | PA-C [address] | | | | | [address] | [address] | | | | | [place], [place] | [place] [address] | | | | | [address] | [phone] | | | | | [phone] | | | +--------+ + + + [...] Miscellaneous Notes Telephone Encounter - Cheyenne Flores, Cardiology Coordinator - 05/15/2018 9:41 AM PDTCalled p atient [...] as continue to follow up with her [facility] physician for pain management. The patient stated [...] PA-C, 05/09/18 elephone Encounter - Cheyenne Flores Cardiology Coordinator - 05/09/2018 2:44 PM PDTCalled patient who [...] message that she completed MRI a t [facility] today. Images have been requested. Kori will [...] [place] | | | | | | [address] | | | | | | | | +--------+---------+ + + + | 09/01/ | Office | Cardiology | Monserrat Weems | | | 2019 | Visit | | [address] | | | | | | [address] | | | | | | [place] [address] | | | | | | [phone] | | | | | | | | +--------+---------+ + + + documented as of this encounter Visit Diagnoses Not on filedocumented in this encounter"
--- OUTSIDE RECORDS SUMMARY | ~2020-08-10 | XMS | Encounter Summary ---
Demographics + + + | Address | [address] | | | [place] [address] | + + + | Home Phone [...] Providers + +------+ + | Care Supervisory Civil Engineer Name | Role | Phone | [...] + + | 04/03/ | Telephone | [facility] | Nick Martinez, | Medication Question | | 2017 | | [address]RY [address] | PA-C [address] | | | | | [address] | [address] [facility] | | | | | [place], [place] | [place] [address] | | | | | [address] | [phone] | | | | | [phone] | | | +--------+ + + + [...] Miscellaneous Notes Telephone Encounter - Cheyenne Flores, Hydrodynamics Professor - 04/04/2018 9:53 AM PDTWaiting for request [...] | | | | | [place] [address] | | | | | | [phone] | | | | | | | | +--------+---------+ + + + documented as of this encounter Visit Diagnoses Not on filedocumented in this encounter"
--- OUTSIDE RECORDS SUMMARY | ~2020-08-10 | XMS | Encounter Summary ---
Demographics + + + | Address | [address] | | | [place] [address] | + + + | Home Phone [...] Team Providers + +------+ + | Care Tube Skiver Name | Role | Phone | + [...] | | spinal | [address] | [place], [place] | | | | | stenosis | [place], [place] | [address] | | | | | | [address] | Phone: | | | | | | Phone: | [phone] | | | | | | [phone] | Fax: | | | | | | Fax: | [phone] | | | | | | [phone] | | +--------+--------+ + + + + Encounter Details +--------+---------+ + + + | Date | Type | Department | Care Team | Description | +--------+---------+ + + + | 06/18/ | Office | [facility] | Denys Sibley, | SACROILIITIS | | 2018 | Visit | [facility] | DO [address] | (Primary Dx); | | | | [address] | [place], [place] | Spondylosis of | | | | [address] | [address] | lumbar region | | | | [place], [place] | | without myelopathy | | | | [address] | | or radiculopathy; | | | | [phone] | | BACK PAIN, LUMBAR; | | [...] | | | | | | pain; medical terminologist | | | | | | current [...] the other nostri l. Talk to your net software engineer regarding the use of this medicine in children. While this drug m ay be prescribed for children as young as newborns for selected conditions, precautions do a pply. What side effects may I notice from receiving this medicine? Side effects that you should report to your doctor or health wound care technician as soon as p ossible: allergic reactions like skin rash, itching or hives, swelling of the face, lips, or tong ue breathing problems fast, irregular heartbeat high blood pressure pain that was controlled by narcotic pain medicine seizures Side effects that usually do not require medical attention (report to your doctor or health wound care technician if they continue or are bothersome): anxious [...] phone number of your doctor or health wound care technician and local hospital ready. You may need to have additional doses of this medicine. Each nasal spray contains a single dose. Some emergencies may require additional doses. After use, bring the treated person to the nearest hospital or call 911. Make sure the lizy freedman health wound care technician knows that the person has received an [...] pharmacist, or health care provider. Copyright 2019 [employer] documented in this encounter Progress Notes Denys [...] , Rfl: Current Pain Level 2/10 Worst 10 Best 11/09 Past Medical History: Diagnosis Date Acute renal failure (HCC) April 2013 Anesthesia hallucinated after bladder repair Arthralgia Asthma Asthma Cancer ([facility]) 2004 breast Cerebrovascular accident (CVA) ([facility]) no per pt Chronic back pain Chronic back pain Concussion 07/2015 Preceeded by seizure Constipation COPD (chronic obstructive pulmonary disease) ([facility]) Degenerative disc disease Depression Depression Diabetes mellitus ([facility]) Diabetes mellitus, type 2 ([facility]) diet controlled Diarrhea Disorder of [...] Scoliosis Scoliosis of lumbar spine 04/17/2014 Seizure ([facility]) one due to meds, two [...] to physical therapy, mass age therapy, acupuncture, critical care educator, along with recommended psychological counseling , either privately, or in group sessions offered by private care individuals, community serv ices, or hindu organizations. Appropriate referrals were made at patient and/or provider request Narcan was prescribed, when appropriate, and patient instructed in its use for emergency on ly. Patient was given instructions on proper storage and disposal of medications including but not limited to current government regulations regarding this and or current official [facility] approved disposal sites. Continue current medication regime with these changes and/ or additions :refill her fenta nyl patch 25 by grams applied to the anterior chest wall q72 hours, and Norco7.5/325 one po q6 hours prn pain Patient understands and is in full agreement with the above plan, Will return to office in 4 weeks, [facility] TOWN MANAGER was consulted and appears appropriate, Urine Toxicology [...] and complications with the passage of time. medical terminologist use is also associated with depressions, and [...] [place] | | | | | | [id number] | | | | | | | | +--------+---------+ + + + | 09/01/ Office | Cardiology | Monserrat Weems | | | 2019 | Visit | | [address] | | | | | | [address] | | | | | | [place] [address] | | | | | | [phone] | | | | | | | | +--------+---------+ + + + + +------+--------+ + + | Name | Type | Priori | Associated Diagnoses | Order Schedule | | | | ty | | | + +------+--------+ + + | Drugs of Abuse, | Lab | Routin | [facility] current | Expected: | | Panel, Pain [...] pain Backache, unspecified | + + | medical terminologist current use of opiate analgesic Encounter for long-term (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 of | | other medications | + + documented in this encounter
--- OUTSIDE RECORDS SUMMARY | ~2020-08-10 | XMS | Encounter Summary ---
Demographics + + + | Address | [address] | | | [place] [address] | + + + | Home Phone [...] Team Providers + +------+ + | Care Code Machine Operator Name | Role | Phone | + +------+ + | Romy De La Paz MD | PCP | | + +------+ + Encounter Details +--------+ + + + + | Date | Type | Department | Care Team | Description | +--------+ + + + + | 04/15/ | Orders Only | [facility] | Denys Sibley, | Spinal stenosis of | | 2020 | | [facility] | DO [address] | lumbosacral region; | | | | [address] | [place], [place] | Lumbar region | | | | [address] | [address] | somatic dysfunction; | | | | [place], [place] | | Intractable back | | | | [address] | | pain; Degenerative | | | | [phone] | | lumbar spinal | | | [...] | | | | | | [place] | | | | | | [address] | | | | | | | | +--------+---------+ + + + | 09/01/ | Office | Cardiology | Monserrat Weems | | | 2019 | Visit | | [address] | | | | | | [address] | | | | | | [place] [address] | | | | | | [phone] | | | | | | | [...]
--- OUTSIDE RECORDS SUMMARY | ~2020-08-10 | XMS | Encounter Summary ---
Demographics + + + | Address | [address] | | | [place] [address] | + + + | Home Phone [...] Phone | + + +---------+ + | Iguseppe Bernarda | ECON | Unknown | | + + +---------+ + | Nathalia Js | ECON | Unknown | | + + +---------+ + Care Team Providers + +------+ + | Care Inspector Outside [employer] Name | Role | Phone | + [...] + + | 12/19/ | Office | [facility] | Shay Dietz | Chronic low back | | 2013 | Visit | [address]ATRY [address] | MD Lonny [address] | pain (Primary Dx); | | | | [address] | [place], [place] | Facet arthritis of | | | | [place], [place] | [address] | lumbar region; Left | | | | [address] | | lumbar | | | | [phone] | | radiculopathy; | | | | [...] a regular basis and to call the [facility] hot-line go to the ER or call [...] don't allow her to tr faisal to [place] very often. documented in this encounter Plan of Treatment +--------+---------+ + + + | Date | Type | Specialty | Care Team | Description | +--------+---------+ + + + | 08/20/ | Office | Pain Medicine | Denys Sibley, | | | 2019 | Visit | | DO [address] | | | | | | [place] | | | | | | [address] | | | | | | | | +--------+---------+ + + + | 09/01/ | Office | Cardiology | Monserrat Weems | | | 2019 | Visit | | [address] | | | | | | [address] | | | | | | [place] [address] | | | | | | [phone] | | | | | | | [...]
--- OUTSIDE RECORDS SUMMARY | ~2020-08-10 | XMS | Encounter Summary ---
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 | | | [address];[place] | | | | | | [address] | | | | + + + [...] | | | | | performed at [facility];[address] | | | | | | [address];[place] | | | | | | [address] | | | | + + + + + -+ | aPTT, | 27Comment: Testing | 23 - 32 seconds | EXTERNAL | | | Patient | performed at [facility];[address] | | LAB | | | | [address];[place] | | | | | | [address] | | | | + + + + + -+ | CK-MB | 3.2Comment: Testing | 0.5 - 3.6 ng/mL | EXTERNAL | | | | performed at [facility];[address] | | LAB | | | | [address];[place] | | | | | | [address] | | | | + + + [...] | | | Fingerstick | performed at [facility] | | LAB | | | | [address];[place] | | | | | | [address] | | | | + + + [...]
--- OUTSIDE RECORDS SUMMARY | ~2020-08-10 | XMS | Encounter Summary ---
Demographics + + + | Address | [address] | | | [place] [address] | + + + | Home Phone [...] Team Providers + +------+ + | Care Packaging Inspector Name | Role | Phone | + +------+ + PCP | Unavailable | + +------+ + Encounter Details +--------+ + + + + | Date | Type | Department | Care Team | Description | +--------+ + + + + | 10/06/ | Hospital | [facility] | Robert Perales | | | 2010 | Encounter | MED CTR SLEEP | MD Miguel [address] | | | | | [address] | [address] [place] | | | | | [place], [place] | [place] [address] | | | | | [address] | [phone] | | | | | [phone] | | | +--------+ + + + [...] - 10/06/2011 10:57 AM PSTDATE: 10/06/2011 cc: [facility] Sleep Center Robert Perales Jr., MD, [facility] Sleep Center Monroe Felder MD CLINICAL [...] the actigraphy monitor. Robert Perales Jr., MD, [facility] Diplomate [place] [employer] of [employer] Medicine Diplomate in Sleep Medicine Consulting Business Developer, [facility] Clinical Building Appraiser Ilene tao of Medicine, [facility] JOB #: [id number] EXT JOB #:[id number] EDITED: 11/11/2011 11:51 <Electronically Signed by Robert Perales MD> 11/15/11 1610 Sleep Disorders - Robert Perales Jr., MD - 10/06/2011 10:57 AM PSTDATE: 10/06/2011 cc: [facility] Sleep Center Robert Perales Jr., MD, [facility] Sleep Center Monroe Felder MD DIAGNOSTIC [...] the patient scored 13 points on the [place] Sleepiness Scale, which endo rses a significant [...] study. Robert Perales Jr., MD, FAASM Diplomate [place] Board of Internal Medicine Diplomate in Sleep Medicine Consulting Business Developer, Gisel López [facility] Center Clinical Building Appraiser Ilene tao of [facility], [facility] JOB #: [id number] EXT JOB #:[id number] <Electronicall y Signed by Robert Perales MD> [...] [place] | | | | | | [address] | | | | | | | | +--------+---------+ + + + | 09/01/ | Office | Cardiology | Mons[facility]at [facility] | | | 2019 | Visit | | [address] | | | | | | [address] | | | | | | [place] [address] | | | | | | [phone] | | | | | | | | +--------+---------+ + + + documented as of this encounter Visit Diagnoses Not on filedocumented in this encounter"
--- OUTSIDE RECORDS SUMMARY | ~2020-08-10 | XMS | Encounter Summary ---
Demographics + + + | Address | [address] | | | [place] [address] | + + + | Home Phone [...] Team Providers + +------+ + | Care System Administration Advisor Name | Role | Phone | + +------+ + | Romy De La Paz MD | PCP | | + +------+ + Encounter Details +--------+ + + + + | Date | Type | Department | Care Team | Description | +--------+ + + + + | 06/21/ | Orders Only | [facility] | Haseebjoyerlinda DO Alfredo | | | 2017 | | [facility] | [address] | | | | | [address] | [place] [address] | | | | | [place], [place] | [phone] | | | | | [address] | | | | | | [phone] | | | +--------+ + + + [...] | Office | Pain Medicine | Denys Sibley Kadi, | | | 2019 | Visit | | DO [address] | | | | | | [place], [place] | | | | | | [address] | | | | | | | | +--------+---------+ + + + | 09/01/ | Office | Cardiology | FaustinaMonserrat | | | 2019 | Visit | | [address] | | | | | | [address] | | | | | | [place] [address] | | | | | | [phone] | | | | | | | [...] At | + + + | KORI HARMON XR HIPS BILATERAL 06/21/2018 8:37 AM | | | HISTORY: 72 years. Female. Bilateral hip pain. TECHNIQUE: XR | | | HIPS BILATERAL. 3 view(s) obtained. COMPARISON: 05/09/2018 | | + + + + + | Procedure Note | + + | Junior, Rad Conversion - 06/21/2019 4:00 PM PDT KORI WAYNE-FAWTHROPXR HIPS | | BILATERAL06/21/2018 8:37 AM [...]
--- OUTSIDE RECORDS SUMMARY | ~2020-08-10 | XMS | Encounter Summary ---
Demographics + + + | Address | [address] | | | [place] [address] | + + + | Home Phone [...] Team Providers + +------+ + | Care Position Description Manager Name | Role | Phone | [...] | Pain | Diagnoses | Cr, | Document Processing Specialist Chh1 | | | | Management | PPS (pelvic | MD Britta | [address] | | | | | pain | [address] | [address] [place] | | | | | syndrome) | [facility] | for Health | | | | | Procedures | Rd | and Healing, | | | | | CONSULT TO | [place], [place] | [facility] | | | | | PAIN CENTER | [address] | 1,15th Floor | | | | | | Phone: | [place], [place] | | | | | | [phone] | [address] | | | | | | Fax: | Phone: | | | | | | [phone] | [phone] | | | | | | | Fax: | | | | | | | [phone] | +--------+--------+ + + + + Reason [...] | | | | | symptom | [place] | [place] | | | | | associated | [place] | Aravind | | | | | with female | Urology [address] | [address], 7th | | | | | genital | [address] | floor | | | | | organs | [address] [place], | [place], [place] | | | | | Unspecified | [place] [address] | [address] | | | | | urinary | Phone: | Phone: | | | | | incontinence | [phone] | [phone] | | | | | | Fax: | Fax: | | | | | | [phone] | [phone] | +--------+--------+ + + + + Encounter Details +--------+---------+ + + + | Date | Type | Department | Care Team | Description | +--------+---------+ + + + | 11/29/ | Office | [facility] | Britta Hankins MD | PPS (pelvic pain | | 2013 | Visit | [facility] | [address] | syndrome) (Primary | | | | [address] [place], | Dx); Depression with | | | | [place] [address] | [place] [address] | suicidal ideation; | | | | [address], 7th floor | [phone] | Recurrent UTI; | | | | [place], [place] | | Hypoestrogenism | | | | [address] | | | | | | [phone] | | | +--------+---------+ + + + [...] 4. Referral to pain service here at [facility] 5. Let me know if you [...] (2 vag, 1 cs, she had to b e hospitalized after her second delivery for infection) seen at the request of Dr. Ck barakat pelvic pain and LUTs following pelvic reconstructive surgery. She is accompanied by her so sadiq Ball. He lives here in [place] so he is not fully aware of her recent health issues but billy quiroz did help in providing some of his mother's past history. 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 Long gold, she was hospitalized at [facility] in 2005 for a Vicodin overdose. [...] speaker, a good grandmother". Her physicians in [place] and elsewhere will not pre scribe pain [...] until she was able to leave her [place] house at age 20. Her aunt recently [...] estrogenization of the vulvova ginal tissues; negative J2EE ENGINEER; no hypospadias of the urethra; + tenderness [...] F/U with Dr. Stover on return to [place]. I am Christine Monterroso functioning as a scribe for Dr. Britta Hankins. Christine Monterroso [facility] [address] I have reviewed, verified, and amended the [...] for afternoon appointments. Britta Hankins M.D., FACS [facility] documented in this encoun ter Miscellaneous Notes Scan - Other, Faculty - 12/21/2013 8:33 AM PSTElectronically signed by Faculty Other at 8:33 AM PSTScan - Yehuda, Faculty - 12/21/2013 8:29 AM PST can - Yehuda, Faculty - 12/21/2013 8:29 AM PSTElec tronically signed by Faculty Other at 12/21/2013 8:29 AM PSTdocumented in this encounter Plan of Treatment Not [...]
--- OUTSIDE RECORDS SUMMARY | ~2020-08-10 | XMS | Encounter Summary ---
Demographics + + + | Address | [address] | | | [place] [address] | + + + | Home Phone [...] Providers + +------+ + | Care Rn On Site Name | Role | Phone | + +------+ + | Romy De La Paz MD | PCP | | + +------+ + Reason for Visit + +--------+ + | Reason | Onset | Comments | | | Date | | + +--------+ + | Appointment | 02/10/ | | | | 2020 | | + +--------+ + Encounter Details +--------+ + + + + | Date | Type | Department | Care Team | Description | +--------+ + + + + | 02/10/ | Telephone | [facility] | Denys Sibley, | Appointment | | 2020 | | [facility] | DO [address] | | | | | [address] | [place], [place] | | | | | [address] | [address] | | | | | [place], [place] | | | | | | [address] | | | | | | [phone] | | | +--------+ + + + [...] this encounter Miscellaneous Notes Telephone Encounter - Rupa Nye, Accounting Supervisor - 02/11/2020 5:17 PM PDTCalled and spoke to patient reminding of appointment on 02/14 and about the screening process/ no v isitor policy. doc umented in this encounter Plan of Treatment +--------+---------+ + + + | Date | Type | Specialty | Care Team | Description | +--------+---------+ + + + | 08/20/ | Office | Pain Medicine | Denys Sibley, | | | 2019 | Visit | | [address] | | | | | | [place] | | | | | | [address] | | | | | | | | +--------+---------+ + + + | 09/01/ | Office | Cardiology | Monserrat [place] | | 2019 | Visit | | [address] | | | | | | [address] | | | | | | [place] [address] | | | | | | [phone] | | | | | | | | +--------+---------+ + + + documented as of this encounter Visit Diagnoses Not on filedocumented in this encounter"
--- OUTSIDE RECORDS SUMMARY | ~2020-08-10 | XMS | Encounter Summary ---
Demographics + + + | Address | [address] | | | [place] [address] | + + + | Home Phone [...] Team Providers + +------+ + | Care Tangible Personal Property Appraiser Name | Role | Phone | + +------+ + | Romy De La Paz MD | PCP | | + +------+ + Reason for Visit + +--------+ + | Reason | Onset | Comments | | | Date | | + +--------+ + | Imaging Only | 11/23/ | | | | 2019 | | + +--------+ + Encounter Details +--------+ + + + + | Date | Type | Department | Care Team | Description | +--------+ + + + + | 11/23/ | Telephone | [facility] [place] | Jairo Doshi, | Imaging Only | | 2019 | | NEUROSURGERY [address] | PA-C [address] | | | | | [address] | [address] [place] | | | | | [place], [place] | [place] [address] | | | | | [address] | [phone] | | | | | [phone] | | | +--------+ + + + [...] this encounter Miscellaneous Notes Telephone Encounter - Monserrat Carmona RN - 11/27/2019 8:29 AM PSTSpoke with Radhacyndie Deutsch at outpatient therapy. Advised that her SCS was placed at [facility] so it would be more appropria te to contact their office. She verbalized understanding. elephone Encounter - Gloria March - 11/23/2019 3:30 PM PSTDANIAL COUGHLIN SERVICES: [facility]: [facility] or Co: Outpatient Physical Therapy Patient: Kori Mcintosh-Fawthrop : 1945 Is this a Trauma Call: Mp Message: I need to talk to the office about scheduling an MRI for this patient. I'd like a call back on Tuesday as I won't be in on Tuesday. Please call back. Caller ID: Date/Time: 11/23 1:18pm [email or web address] documented in this enc ounter Plan of Treatment +--------+---------+ + + + | Date | Type | Specialty | Care Team | Description | +--------+---------+ + + + | 08/20/ | Office | Pain Medicine | Denys Sibley, | | | 2019 | Visit | | DO [address] | | | | | | [place] | | | | | | [address] | | | | | | | | +--------+---------+ + + + | 09/01/ | Office | Cardiology | Monserrat [facility] | | | 2020 | Visit | | [address] | | | | | | [address] | | | | | | [place] [address] | | | | | | [phone] | | | | | | | | +--------+---------+ + + + documented as of this encounter Visit Diagnoses Not on filedocumented in this encounter"
--- OUTSIDE RECORDS SUMMARY | ~2020-08-10 | XMS | Encounter Summary ---
Demographics + + + | Address | [address] | | | [place] [address] | + + + | Home Phone [...] Team Providers + +------+ + | Care Engine Builder Name | Role | Phone | + +------+ + PCP | Unavailable | + +------+ + Reason for Visit +--------+--------+ + | Reason | Onset | Comments | | | Date | | +--------+--------+ + | Other | 11/03/ | | | | 2012 | | +--------+--------+ + Encounter Details +--------+ + + + + | Date | Type | Department | Care Team | Description | +--------+ + + + + | 11/03/ | Telephone | [facility] [place] | Shay Dietz | Other | | 2012 | | PHYSIATRY [address] | [address] | | | | [address] | [place], [place] | | | | | [place], [place] | [address] | | | | | [address] | | | | | | [phone] | | | +--------+ + + + [...] Miscellaneous Notes Telephone Encounter - Glory Toledo - 11/03/2012 8:59 AM PSTPatient returned call and was given information elephone Encounter - Tangela Tomas - 11/03/2012 8:50 AM PSTLeft message on patients phone to call our office to move her appointment up later in the day. Her appointment will be at 2:00 with a 1:30 check in. Tdocumented in this encounter Plan of Treatment +--------+---------+ + + + | Date | Type | Specialty | Care Team | Description | +--------+---------+ + + + | 08/20/ | Office | Pain Medicine | Denys Sibley, | | | 2019 | Visit | | DO [address] | | | | | | [place] | | | | | | [address] | | | | | | | | +--------+---------+ + + + | 09/01/ | Office | Cardiology | [facility] | | | 2019 | Visit | | [address] | | | | | | [address] | | | | | | [place] [address] | | | | | | [phone] | | | | | | | | +--------+---------+ + + + documented as of this encounter Visit Diagnoses Not on filedocumented in this encounter"
--- OUTSIDE RECORDS SUMMARY | ~2020-08-10 | XMS | Encounter Summary ---
Demographics + + + | Address | [address] | | | [place] [address] | + + + | Home Phone [...] Providers + +------+ + | Care Clay Hoister Name | Role | Phone | + [...] | | | spine Facet | [address] | | | | | | arthritis | [address]VE | | | | | | of lumbar | [place] | | | | | | region | [address] | | | | | | | Phone: | | | | | | | [phone] | | | | | | | Fax: | | | | | | | [phone] | | +--------+ + + + + + Reason for Visit + + + | Reason | Comments | + + + | Follow-up | MRI f/u | + + + Encounter Details +--------+---------+ + + + | Date | Type | Department | Care Team | Description | +--------+---------+ + + + | 09/10/ | Office | [facility] | Darrin Soler | Scoliosis of lumbar | | 2013 | Visit | NEUROSURGERY [address] | [address] | spine (Primary Dx); | | | | [address] [place], [place] | Facet arthritis of | | | | [place], [place] | [address] | lumbar region | | | | [address] | | | | | | [phone] | | | +--------+---------+ + + + [...] this encounter Patient Instructions Patient Instructions Darrin Soler PA - 09/10/2014 3:54 PM PSTToday you [...] documented in this encounter Progress Notes Darrin Soler PA - 09/10/2014 3:58 PM PSTFormatting of this note might be differen t from the original. PEE Vang [address] [facility] [address] [place], [place] [address] FAX: NEUROSURGERY HISTORY AND PHYSICAL EXAMINATION CHIEF [...] a also s een a surgeon in [facility] he stated she did not need to have surgery according to her repo rt. She also reports she had a recent MRI in the [facility] which I do not have [...] Intrinsics 5 4 Ulnar Intrinsics 5 4 Broadcast Operations Technician Strength 5 4 Hip Flexion 5 4 [...] 09/10/2014 16:03 documented in th is encounter Miscellaneous Notes Addendum Note - Darrin Soler PA - 09/10/2014 4:11 PM PST Addended by: KAVEH SOLER on: 09/10/2014 16:11 Modules accepted: Orders documented in this encounter Plan of Treatment +--------+---------+ + + + | Date | Type | Specialty | Care Team | Description | +--------+---------+ + + + | 08/20/ | Office | Pain Medicine | Denys Sibley, | | | 2019 | Visit | | DO [address] | | | | | | [place] | | | | | | [address] | | | | | | | | +--------+---------+ + + + | 09/01/ | Office | Cardiology | Monserrat [facility] | | | 2019 | Visit | | [address] | | | | | | [address] | | | | | | [place] [address] | | | | | | [phone] | | | | | | | [...]
--- OUTSIDE RECORDS SUMMARY | ~2020-08-10 | XMS | Encounter Summary ---
Demographics + + + | Address | [address] | | | [place] [address] | + + + | Home Phone [...] Team Providers + +------+ + | Care Guideman Name | Role | Phone | + +------+ + | Romy De La Paz MD | PCP | | + +------+ + Reason for Visit + +--------+ + | Reason | Onset | Comments | | | Date | | + +--------+ + | Follow-up | 08/27/ | | | | 2019 | | + +--------+ + Encounter Details +--------+ + + + + | Date | Type | Department | Care Team | Description | +--------+ + + + + | 08/27/ | Telephone | [facility] | Denys Sibley, | Follow-up | | 2018 | | NEUROSCIENCE CENTER | DO [address] | | | | | [address] | [place], [place] | | | | | [address] | [address] | | | | | [place], [place] | | | | | | [address] | | | | | | [phone] | | | +--------+ + + + [...] Miscellaneous Notes Telephone Encounter - Rupa Nye, Vehicle Damage Appraiser - 08/27/2019 3:43 PM PDTCalled and spoke to patient letting her know the only appointment that I can move her to into the month of August is 09/13 at 8:40 am. Patient states that her batch mixing truck driver just does not want to drive her back to back days. Patient tried calling her ride. Patient asked if we could hold 09/13 spot until she can talk to her ride. I informed patient because unfortunately I am katz ited appointment spots I will have to scheduled another patient. Patient states she will ninoska p her 09/17 appointment. Electronically signed by Rupa Nye Vehicle Damage Appraiser at 3:45 PM PDTTelephone Encounter - Sj Marino - 08/27/2019 11:33 AM PDTLaurie, is calling again for Follow-up and would like a call back. Additional Call Details: Calling to reschedule 09-17-19 appointment and to see if appointme nt available for 09-18-19 as patient needs to secure transportation. Contact at number under home in chart. elephone Encounter - Yoon Tee res - 08/27/2019 10:01 AM PDTLaurie, is returning call for Follow-up and would like a call back. Additional Call Details: Please call her back at home number listed. elephone Encounter - Rupa Pennington, Vehicle Damage Appraiser - 08/27/2019 9:08 AM PDTCalled and left a message for korina ent to call back. Electronically signed by Rupa Nye Vehicle Damage Appraiser at 9:08 AM PDTTelephone Encounter - Vilma Varner - 08/27/2019 8:19 AM PDTLaurie, is calling regarding Follow-up and would like a call back. Additional Call Details: Calling to reschedule appointment 09/17/19, asking if there is an ything open on 09/18/19. Please call her at the home number listed If this is a symptom based call, was patient offered triage? Not Applicable If this is a symptom based call and you were unable to immediately transfer the call to a p joan senior it recruiter was caller made aware that if at [...] [place] | | | | | | [phone] | | | | | | | | +--------+---------+ + + + | 09/01/ | Office | Cardiology | Monserrat [facility] | | 2019 | Visit | | Katty, DIRECTOR OF SPEECH PATHOLOGY [address] | | | | | | [address] | | | | | | [place] [address] | | | | | | [phone] | | | | | | | | +--------+---------+ + + + documented as of this encounter Visit Diagnoses Not on filedocumented in this encounter"
--- OUTSIDE RECORDS SUMMARY | ~2020-08-10 | XMS | Encounter Summary ---
Demographics + + + | Address | [address] | | | [place] [address] | + + + | Home Phone [...] Providers + +------+ + | Care Supervisor Phosphorus Processing Name | Role | Phone | + +------+ + | Miquel Calhoun MD | PCP | | + +------+ + Encounter Details +--------+ + + + + | Date | Type | Department | Care Team | Description | +--------+ + + + + | 09/17/ | Telephone | [facility] | Khushbu Cortez, | | | 2012 | | [facility] | [place], [place] | | | | | [address] | [address] | | | | | [address] | | | | | | [place], [address] [place] [address] | | | | | | [place], [place] | | | | | | [address] | | | | | | [phone] | | | +--------+ + + + [...] encounter Miscellaneous Notes Telephone Encounter - Khushbu Cortez, HIGH VOLTAGE ELECTRICIAN - 09/17/2013 4:39 PM Emma called to say that she was told by [facility] that she needs a second test done that can be combined with the ot her appt she had previously planned at [facility]. Sadly, the appt cannot happen until 11/29/13 as the new test that has been ordered is only done one day a month. This is very disappointing to the pt as she is currently in quite a bit of pain. Pt is taking an anti-biotic and she be lieves the pain has lessoned a little. SW provided empathy for pt's pain and frustration at appt extended out so far. Pt encourage d to call her PCP locally to see if they can help with pain or with appt that is scheduled o ut so far. Pt believes this is a good idea and plans to call PCP now. Pt encouraged to call back when appt is set and I can set up motel overnight stay for her. Khushbu Cortez LCSW documented in this encounter Plan of Treatment Not on filedocumented as of this encounter Visit Diagnoses Not on filedocumented in this encounter"
--- OUTSIDE RECORDS SUMMARY | ~2020-08-10 | XMS | Encounter Summary ---
Demographics + + + | Address | [address] | | | [place] [address] | + + + | Home Phone [...] Providers + +------+ + | Care Entry Analyst Name | Role | Phone | + +------+ + | Miquel Calhoun MD | PCP | | + +------+ + Reason for Visit + +--------+ + | Reason | Onset | Comments | | | Date | | + +--------+ + | Appointment | 09/17/ | | | | 2012 | | + +--------+ + Encounter Details +--------+ + + + + | Date | Type | Department | Care Team | Description | +--------+ + + + + | 09/17/ | Telephone | [facility] | Britta Hankins MD | Appointment | | 2012 | | [facility] | [address] | | | | | [address] | [facility], | | | | | [address] | [place] [address] | | | | | [place], [facility] floor | [phone] | | | | | [place], [place] | | | | | | [address] | | | | | | [phone] | | | +--------+ + + + [...] this encounter Miscellaneous Notes Telephone Encounter - Jaky Kennedy RN - 09/17/2013 3:42 PM PSTDr. Hankins has reviewed pt records in detail. Per Dr. Hankins, pt should see urology, have cystoscopy and UDS same day as initial evaluation. Canceled appt with urogyn. Rescheduled to 11/29/12 for new cysto at 1030 and UDS at 1330. Madyson disla in this encounter Plan of Treatment Not on filedocumented as of this encounter Visit Diagnoses + + | Diagnosis | + + | TRICIA (stress urinary incontinence, female) - Primary Female stress incontinence | + + documented in this encounter"
--- OUTSIDE RECORDS SUMMARY | ~2020-08-10 | XMS | Encounter Summary ---
Demographics + + + | Address | [address] | | | [place] [address] | + + + | Home Phone [...] Team Providers + +------+ + | Care Dining Room Attendant Cafeteria Name | Role | Phone | + [...] | | | | | Juliana Schulte [place], | | | | | | [place] [address] | | | +--------+ + + + [...]
--- OUTSIDE RECORDS SUMMARY | ~2020-08-10 | XMS | Encounter Summary ---
Demographics + + + | Address | [address] | | | [place] [address] | + + + | Home Phone [...] Providers + +------+ + | Care Director Sports Name | Role | Phone | + +------+ + | Romy De La Paz MD | PCP | | + +------+ + Reason for Visit + +--------+ + | Reason | Onset | Comments | | | Date | | + +--------+ + | Back Pain | 08/31/ | Severe | | | 2019 | | + +--------+ + Encounter Details +--------+ + + + + | Date | Type | Department | Care Team | Description | +--------+ + + + + | 08/31/ | Telephone | [facility] | Maykel Hutchins MD | Back Pain (Severe) | | 2019 | | [facility] | [address] | | | | | ORTH[facility]EDIC [facility] | [place], [place] | | | | | [address] [facility] | [address] | | | | | [place] | | | | | | [address] | | | | | | [phone] | | | +--------+ + + + [...] Encounter - Niki Pizarro RN - 08/31/2019 4:01 PM PDTS/P T9-T10 laminectomy a nd decompression with T8 placement of SCS on 08/03/19. Patient states she has been running a low grade temp and feeling bad. Patient has had diarr hea. Patient states she is having incisional pain and muscle tightness on the right side whe re battery was placed. Patient states incision does not look red or infected. Patient stat es her fentanyl dose was decreased a week and a half ago and since then her pain has been in creasing. Advised patient contact PCP or go to urgent care to be evaluated for dehydration and possib ly having the flu. Patient stated she received the flu shot and pneumonia vaccine recently. Advised patient to call Dr. Sibley's office and informed them of the increasing pain and for possible recommendations or a sooner appointment. Kori verbalized understanding and a greed with the plan. elephone Encounter - Mai Polanco I - 08/31/2019 3:59 PM PDTSherri ( Orthopedics), is calling again for Back Pain (Severe) and would like a call back. Additional Call Details: States patient has been waiting on a call back. Keeps calling the m.Not sure why patient was directed from our clinical staff to contact . Please ca ll patient back as soon as possible. Nurse/MA's were unavailable. elephone Encounter - Mai Montoya I - 08/31/2019 2:48 PM PDTLayanci, is calling regarding Back Pain (Severe) and would like a call back. Additional Call Details: Expresses she is having severe back pain. Per she was d irected to us. Please call back as soon as possible for medical advice. If this is a symptom based call, was patient offered triage? Not Applicable If this is a symptom based call and you were unable to immediately transfer the call to a jose m franco buildings and grounds supervisor was caller made aware that if [...] [address] | | | | | | [place] [address] | | | | | | [phone] | | | | | | | | +--------+---------+ + + + documented as of this encounter Visit Diagnoses Not on filedocumented in this encounter"
--- OUTSIDE RECORDS SUMMARY | ~2020-08-10 | XMS | Encounter Summary ---
Demographics + + + | Address | [address] | | | [place] [address] | + + + | Home Phone [...] Team Providers + +------+ + | Care Rotor Winder Name | Role | Phone | [...] | | | [address] | [place] [address] | | | | | [place] [address] | | | | | | [phone] | | | +--------+ + + + [...] [place] | | | | | | [address] | | | | | | | | +--------+---------+ + + + | 09/01/ | Office | Cardiology | Monserrat Weems | | | 2019 | Visit | | [address] | | | | | | [address] | | | | | | [place] [address] | | | | | | [phone] | | | | | | | [...]
--- OUTSIDE RECORDS SUMMARY | ~2020-08-10 | XMS | Encounter Summary ---
Demographics + + + | Address | [address] | | | [place] [address] | + + + | Home Phone [...] Providers + +------+ + | Care Sock Ironer Name | Role | Phone | + [...] | lumbar region | | | | [place] | [place] , [address] | without myelopathy | | | | [place] [address] | [place] [address] | or radiculopathy | | | | [phone] | [phone] | (Primary Dx); | | | | | | Chronic right-sided | | | | | Escalator Operator, [facility] | low back pain with | | | | | [place] | right-sided | | | | | | sciatica; Facet | | | | | | arthritis of lumbar | | | | | | region ([facility]); | | | | | | Adolescent [...] [place] | | | | | | [address] | | | | | | | | +--------+---------+ + + + | 09/01/ | Office | Cardiology | Monserrat Weems | | 2019 | Visit | | [address] | | | | | | [address] | | | | | | [place] [address] | | | | | | [phone] | | | | | | | [...] Spondylosis ICD-10 Code M47.816 Kori Harshal | [facility] | | Joanne presents to the fluoroscopy suite for | [facility] | | fluoroscopically-guided bilateral L5-S1 facet [...] [address] | [place] | [phone] | | [facility] | | [address] | | | - IMAGING | | [...] | | | | | Other, ONCE, Turichie 07/06/16 at 1115, | | AM PDT | | | | | For 1 dose, Radiology | | | | | | + +--------+ +-------+------+------+ +---+---+ | | | +---+---+ + +-------+ +------+---+---+ | lidocaine 1% injection 1 mL 1 | Given | 07/06/20 | 1 mL | | | | mL, Other, ONCE, Dee 07/06/16 at | | 16 11:03 | [...]
--- OUTSIDE RECORDS SUMMARY | ~2020-08-10 | XMS | Encounter Summary ---
Demographics + + + | Address | [address] | | | [place] [address] | + + + | Home Phone [...] Team Providers + +------+ + | Care Job Setter Honing Name | Role | Phone | + +------+ + | Romy De La Paz MD | PCP | | + +------+ + Reason for Visit + +--------+ + | Reason | Onset | Comments | | | Date | | + +--------+ + | Lab Results | 07/10/ | | | | 2020 | | + +--------+ + Encounter Details +--------+ + + + + | Date | Type | Department | Care Team | Description | +--------+ + + + + | 07/10/ | Telephone | [facility] | Monserrat Weems | Lab Results | | 2020 | | CARDIOLOGY GARY | [address] | | | | | [address] | [address] [place] [address] | | | | | [place], [place] | [place] [address] | | | | | [address] | [phone] | | | | | [phone] | | | +--------+ + + + [...] this encounter Miscellaneous Notes Telephone Encounter - Brittany Cartwright CMA - 07/10/2020 4:29 PM PDTCalled patient to let her know that her labs per Monserrat Alaniz looked normal. She stated understanding and had no furt her questions. PH e violetane Encounter - Brittany Cartwright CMA - 07/10/2020 4:29 PM PDT----- Message from Monserrat Cindy GLYNN Krishna sent at 07/02/2020 2:13 PM PDT ----- Regarding: Labs Iona, Please call and let her know that her chemistry, thyroid , and blood count labs were all n ormal . Thanks MB documented in this encounter Plan of Treatment +--------+---------+ + + + | Date | Type | Specialty | Care Team | Description | +--------+---------+ + + + | 08/20/ | Office | Pain Medicine | Denys Sibley, | | | 2019 | Visit | | DO [address] | | | | | | [place] | | | | | | [address] | | | | | | | | +--------+---------+ + + + | 09/01/ | Office | Cardiology | Monserrat Weems | | | 2019 | Visit | | [address] | | | | | | [address] | | | | | | [place] [address] | | | | | | [phone] | | | | | | | | +--------+---------+ + + + documented as of this encounter Visit Diagnoses Not on filedocumented in this encounter"
--- OUTSIDE RECORDS SUMMARY | ~2020-08-10 | XMS | Encounter Summary ---
Demographics + + + | Address | [address] | | | [place] [address] | + + + | Home Phone [...] Team Providers + +------+ + | Care Photographer Apprentice Lithographic Name | Role | Phone | + [...] + | 04/02/ | Emergency | [facility] | Kvng Bennett, | Acute stress | | 2017 | | [facility] | [place] [address] | reaction (Primary | | | | CENTER [address] | [place] | Dx) | | | | [place] | [address] | | | | | [address] | | | | | | [phone] | | | +--------+ + + + [...] her and found her dad at the senior living. She collapsed to th e ground and [...] walked into a family members room at [facility] and found her . Haris [...] [place] | | | | | | [address] | | | | | | | | +--------+---------+ + + + | 09/01/ | Office | Cardiology | Monserrat Weems | | | 2019 | Visit | | [address] | | | | | | [address] | | | | | | [place] [address] | | | | | | [phone] | | | | | | | [...]
--- OUTSIDE RECORDS SUMMARY | ~2020-08-10 | XMS | Encounter Summary ---
Demographics + + + | Address | [address] | | | [place] [address] | + + + | Home Phone [...] Providers + +------+ + | Care Special Certificate Dictator Name | Role | Phone | + [...] | | | [address] | [place] [address] | | | | | [place] [address] | | | | | | [phone] | | | +--------+ + + + [...] [place] | | | | | | [address] | | | | | | | | +--------+---------+ + + + | 09/01/ | Office | Cardiology | Monserrat Weems | | | 2019 | Visit | | [address] | | | | | | [address] | | | | | | [place] [address] | | | | | | [phone] | | | | | | | [...]
--- OUTSIDE RECORDS SUMMARY | ~2020-08-10 | XMS | Encounter Summary ---
Demographics + + + | Address | [address] | | | [place] [address] | + + + | Home Phone [...] Team Providers + +------+ + | Care Vat House Supervisor Name | Role | Phone | + +------+ + | Romy De La Paz MD | PCP | | + +------+ + Encounter Details +--------+ + + + + | Date | Type | Department | Care Team | Description | +--------+ + + + + | 07/18/ | Hospital | [facility] | Maykel Hutchins MD | | | 2019 | Encounter | [facility] XRAY | [address] | | | | | [address] | [place], [place] | | | | | [place], [place] | [address] | | | | | [address] | | | | | | [phone] | | | +--------+ + + + [...] Decreased | | | | | | detention current | Responsiveness (May | | | [...] by mouth | | 0 | | 10/17/201 | | (ROBAXIN) 500 mg | 4 [...] [place] | | | | | | [address] | | | | | | | | +--------+---------+ + + + | 09/01/ | Office | Cardiology | Faustina Monserrat | | | 2019 | Visit | | [address] | | | | | | [address] | | | | | | [place] [address] | | | | | | [phone] | | | | | | | [...]
--- OUTSIDE RECORDS SUMMARY | ~2020-08-10 | XMS | Encounter Summary ---
Demographics + + + | Address | [address] | | | [place] [address] | + + + | Home Phone [...] Team Providers + +------+ + | Care Gun Tester Name | Role | Phone | + +------+ + | Oxana Nye | PCP | | + +------+ + Encounter Details +--------+ + + + + | Date | Type | Department | Care Team | Description | +--------+ + + + + | 10/04/ | MyChart | Cardiology General | | Appointment Location | | 2015 | Encounter | at [facility] [address] | | Change: Effective | | | | [facility] | | October 31 | | | [facility], | | | | | | Building | | | | | | Floor [place], [place] | | | | | | [address] | | | | | | [phone] | | | +--------+ + + + [...]
--- OUTSIDE RECORDS SUMMARY | ~2020-08-10 | XMS | Encounter Summary ---
Demographics + + + | Address | [address] | | | [place] [address] | + + + | Home Phone [...] Providers + +------+ + | Care Supervisor Feed House Name | Role | Phone | + [...] + + | 04/28/ | Emergency | [facility] | Jean-Paul Flowers, | Chronic hip pain, | | 2014 | | [facility] | MD [address] | right (Primary Dx); | | | | CENTER [address] | [place], [place] | Chronic low back | | | | [place], [place] | [id number] | pain; Frequent falls | | | | [address] | | | | | | [phone] | | | +--------+ + + + [...] Flowers MD - 04/28/2015[facility] for assistance with home health, occupational therapy, [...] Right hip and leg pain HPI Kori Rubio is a 69 y.o. female who presents complaining of right hip and r ight lateral thigh pain for the last week and a half worse after a fall last night. She stat es that since 2 a.m. she has had increasing pain today and took a [place] for pain which did h elp. She has a history of chronic pain as well as frequent falls. She is from [facility] but came to [facility] with the help of a friend because she does not trust the emergency department at [facility]. She has 15 visits there this year and feels like they do not help her. She has a social secretary in [place] who is working on helping her wit [...] Bilateral external ears normal, Oral mucosa moist, ladle filler ior pharynx no exudates, Nose normal. Neck-supple, [...] findings. I spoke with her Hospital so cial worker in [place] and recommended expedited outpatient home health and OT follow up. She'll be discharged home and can continue to take home pain medication as prescribed. She s hould follow up with her primary care provider and outpatient social secretary. She should retu rn if new concerning [...] information: [address] [place] [address] Discharge Medication List as of 04/28/2015 10:48 [...] | | | | | | [place] | | | | | | [address] | | | | | | | | +--------+---------+ + + + | 09/01/ | Office | Cardiology | Monserrat Weems | | 2019 | Visit | | [address] | | | | | | [address] | | | | | | [place] [address] | | | | | | [phone] | | | | | | | [...] TRACKING (1 MO.) Visit Date | [place] | | LocationTypeDiagnoses | | | VISIT TRACKING (3 MO.) Visit Date | | | Location Type | | | Diagnoses -------- | | | ---- | | | 04/28/2015 08:18 [facility] | | | Emergency -Right Hip to Toe 04/23/2015 10:[address] [facility] [address] | | | [facility] 04/13/2015 | | | 07:46 [facility] | | | -Other chronic pain [...] not stated as uncontrolled 04/10/2015 14:37 [facility] | | | Hospital Emergency -Surgical or [...] | | | | -Dehydration 04/09/2015 10:50 [facility] | | | Urgent Care -History of [...] as uncontrolled | | | 04/07/2015 07:45 [facility] | | | Urgent Care -Unspecified acquired [...] in stool 03/26/2015 | | | 07:15 [facility] Emergency | | | -Diabetes mellitus without [...] other | | | medications 03/07/2015 10:45 [facility] | | | Urgent Care -Loss of [...] of weight | | | 02/17/2015 09:15 [facility] | | | Urgent Care -Dysuria | [...] in | | | breast 02/14/2015 09:50 [facility] | | | Urgent Care -Other chronic [...] chronic pain | | | 02/11/2015 09:00 [facility] | | | Urgent Care -Loss of [...] ------ --------- 1 0 | | | [facility] 2 | | | 0 [facility] 15 | | | 0 [facility] 18 | | | 0 Total Note: Visits indicate total | | | known visits. Medicaid [place] Dx are the number of primary diagnoses on | | | the [facility]'s non-emergent dx list. | | | | | | --- [facility] has no Care Guidelines for this patient. [place] | | | Prescription Review PDMP Report [...]
--- OUTSIDE RECORDS SUMMARY | ~2020-08-10 | XMS | Encounter Summary ---
Demographics + + + | Address | [address] | | | [place] [address] | + + + | Home Phone [...] Team Providers + +------+ + | Care Cane Splicer Name | Role | Phone | + [...] + | 08/05/ | Office | [facility] | Spenser, | Foraminal stenosis | | 2013 | Visit | PHYSIATRY [address] | [address] | of lumbar region - | | | | [address] | [address] | left L5-S1 (Primary | | | | [facility], [place] | [place] [address] | Dx); Left lumbar | | | | [address] | [phone] | radiculopathy; DDD | | | | [phone] | | (degenerative disc | | | [...] of the procedure you must provide a auto haulaway driver to take you home. For all procedur es it is recommended that someone else drive you home. documented in this encounter Progress Notes SpenserYaneli, BRI - 08/05/2014 11:26 AM PDTFormatting of this [...] prior L5-S1 injections and facet injections w ith Dr. Dietz, physical therapy, narcotic medications, NSAIDS and [...] along with flexion/extension xray's perf ormed in [place] last week. I will request for these [...] [place] | | | | | | [id number] | | | | | | | | +--------+---------+ + + + | 09/01/ | Office | Cardiology | Monserrat Weems | | | 2020 | Visit | | [address] | | | | | | [address] | | | | | | [place] [address] | | | | | | [phone] | | | | | | | | +--------+---------+ + + + documented as of this encounter Results [facility] BRITTNEY Lumbar Transforaminal (08/05/2014 1:53 PM PDT) + + | Specimen | + + | | + + + + + | Narrative | Performed At | + + + | 08/05/2014 Transforaminal Epidural Steroid Injection Diagnosis: | [facility] | | Lumbar radiculopathy ICD-9 Code 724.4 Kori Harshal | [facility] | | Joanne presents [...] | + + + + + | [facility] | [address] | [place] | [phone] | | [facility] | | [address] | | | - IMAGING | | [...]
--- OUTSIDE RECORDS SUMMARY | ~2020-08-10 | XMS | Encounter Summary ---
Demographics + + + | Address | [address] | | | [place] [address] | + + + | Home Phone [...] Team Providers + +------+ + | Care Geotechnical Laboratory Technician Name | Role | Phone | [...] COURTNEY Andrews | | | | | [place], [place] | [place], [place] | | | | | [address] | [address] | | | | | [phone] | [phone] | | | | | | | [...] + + | UA, DIPSTICK ONLY | Routin | 06/29/2006 | | [...] DEPARTMENT OF | [address] | [place] [address] | | | PATHOLOGY | [address] | | | + + + + + | [facility] DEPARTMENT OF | [address] | [place] [address] | | | PATHOLOGY | [address] [...] + + + + | [facility] DEPARTMENT OF | [facility] | [place] [address] | | | PATHOLOGY | [address] | | | + + + + + | [facility] DEPARTMENT OF | [address] [facility] | [place] [address] | | | PATHOLOGY | [address] [...] + + + + | [facility] DEPARTMENT | [address] [facility] | [place] [address] | | | PATHOLOGY | [address] | | | + + + + + | [facility] | [address] [place] [address] | [place] [address] | | | PATHOLOGY | [address] [...] | + + + + + | [facility] | [address] [facility] | [place] [address] | | | PATHOLOGY | [address] | | | + + + + + | [facility] DEPARTMENT | [address] [facility] | [place] [address] | | | PATHOLOGY | [address] [...] + + + + | [facility] DEPARTMENT OF | [address] | [place] [address] | | | PATHOLOGY | [address] | | | + + + + + | [facility] DEPARTMENT OF | [address] | [place] [address] | | | PATHOLOGY | [address] [...] 1.8 - 2.5 mg/dL | [facility] | | | LASMA | | [...] | + + + + + | [facility] | [address] [facility] | [place] [address] | | | PATHOLOGY | [address] | | | + + + + + | [facility] DEPARTMENT OF | [facility] | [place] [address] | | | PATHOLOGY | [address] [...] + + + + | [facility] DEPARTMENT OF | [address] [facility] | [place] [address] | | | PATHOLOGY | [address] | | | + + + + + | [facility] DEPARTMENT OF | [address] [facility] | [place] [address] | | | PATHOLOGY | [address] [...] | + + + + + | [facility] | [address] [facility] | [place] [address] | | | PATHOLOGY | [address] | | | + + + + + | [facility] | [address] [facility] | [place] [address] | | | PATHOLOGY | [address] [...] DEPARTMENT OF | [address] | [place] [address] | | | PATHOLOGY | [address] | | | + + + + + | [facility] DEPARTMENT OF | [address] | [place] [address] | | | PATHOLOGY | [address] [...] DEPARTMENT OF | [address] | [place] [address] | | | PATHOLOGY | [address] | | | + + + + + | [facility] DEPARTMENT OF | [address] | [place] [address] | | | PATHOLOGY | [address] [...] + + + + | [facility] DEPARTMENT OF | [address] [facility] | [place] [address] | | | PATHOLOGY | [address] | | | + + + + + | [facility] DEPARTMENT OF | [address] [facility] | [place] [address] | | | PATHOLOGY | [address] | | | + + + + + PHOSPHORUS QUANT, URINE (06/30/2006 4:45 AM PDT) + +-------+ + + + | Component | Value | Ref Range | Performed | Pathologist | | | | | At | Signature | + +-------+ + + + | PHOSPHORUS | 28.8 | mg/dL | [facility] | | | CONC [facility] | | | DEPARTMENT | | | | | | OF | | | | | | PATHOLOGY | | + +-------+ + + + + + | Specimen | + + | | + + + + + | Narrative | Performed At | + + + | Urine Chemistry Master | [facility] | | | DEPARTMENT OF | | | PATHOLOGY | + + + + + + + + | Performing | Address | City/State/Zipcode | Phone Number | | Organization | | | | + + + + + | [facility] DEPARTMENT OF | [address] | [place] [address] | | | PATHOLOGY | [address] | | | + + + + + | [facility] DEPARTMENT | [address] [facility] | [place] [address] | | | PATHOLOGY | [address] [...] | 258Comment: Reference | mOsm/Kg H2O | [facility] | | | URINE | Ranges: 50-1200 [...] | + + + + + | [facility] | [address] [place] [address] | [place] [address] | | | PATHOLOGY | [address] | | | + + + + + | [facility] | [address] [place] [address] | [place] [address] | | | PATHOLOGY | [address] [...] + + + + | [facility] DEPARTMENT OF | [address] | [place] [address] | | | PATHOLOGY | [address] | | | + + + + + | [facility] DEPARTMENT OF | [address] | [place] [address] | | | PATHOLOGY | [address] [...] + + | [facility] DEPARTMENT OF | [address] | [place], [place] [address] | | | PATHOLOGY | [address] | | | + + + + + | [facility] | [address] | [place] [address] | | | PATHOLOGY | [address] [...] | | | | Test performed by [facility] [[email or web address]] | | | | | | Laboratories. | | | | + + + + + + + + | Specimen | + + | | + + + + + + + | Performing | Address | City/State/Zipcode | Phone Number | | Organization | | | | + + + + + | [facility] | [address] | [place], [place] | | | [facility] | | [phone] | | + + + + + [...] + + + + | [facility] DEPARTMENT OF | [address] | [place] [address] | | | PATHOLOGY | [address] | | | + + + + + | [facility] DEPARTMENT OF | [address] [facility] | [place] [address] | | | PATHOLOGY | [address] [...] + + + + | [facility] DEPARTMENT OF | [facility] | [place] [address] | | | PATHOLOGY | [address] | | | + + + + + | [facility] DEPARTMENT OF | [facility] | [place] [address] | | | PATHOLOGY | [address] [...] | | | 1,25-DIHYDR | performed by [facility] | | | | | OXY | Laboratory. | | | | + + + + + + + + | Specimen | + + | | + + + + + + + | Performing | Address | City/State/Zipcode | Phone Number | | Organization | | | | + + + + + | [facility] | [address] | [place], [place] | | | [facility] | | [address] | | + + + + + [...] | | | | | performed at [facility] | | | | | | [facility] | | | | | | Laboratory. | | | | + + + + + + + + | Specimen | + + | | + + + + + + + | Performing | Address | City/State/Zipcode | Phone Number | | Organization | | | | + + + + + | [facility] | [address] | [place] [address] | | | LAB-MICRO | | | [...] | + + + + + | [facility] | [address] | [place] [address] | | | PATHOLOGY | [address] | | | + + + + + | [facility] | [address] | [place] [address] | | | PATHOLOGY | [address] [...] + + + + | [facility] DEPARTMENT OF | [address] | [place] [address] | | | PATHOLOGY | [address] | | | + + + + + | [facility] DEPARTMENT OF | [address] | [place] [address] | | | PATHOLOGY | [address] [...] + + + + | [facility] DEPARTMENT OF | [address] | [place] [address] | | | PATHOLOGY | [address] | | | + + + + + | [facility] | [address] | [place] [address] | | | PATHOLOGY | [address] [...] | + + + + + | [facility] | [address] [facility] | [place] [address] | | | PATHOLOGY | [address] | | | + + + + + | [facility] | [address] [facility] | [place] [address] | | | PATHOLOGY | [address] [...] 1.8 - 2.5 mg/dL | [facility] | | | LASMA | | [...] + + + + | [facility] DEPARTMENT OF | [address] [facility] | [place] [address] | | | PATHOLOGY | [address] | | | + + + + + | [facility] DEPARTMENT OF | [address] [facility] | [place] [address] | | | PATHOLOGY | [address] [...] | + + + + + | [facility] | [address] [facility] | [place] [address] | | | PATHOLOGY | [address] | | | + + + + + | [facility] | [address] [facility] | [place] [address] | | | PATHOLOGY | [address] [...] | + + + + + | [facility] | [address] | [place] [address] | | | PATHOLOGY | [address] | | | + + + + + | [facility] | [address] | [place] [address] | | | PATHOLOGY | [address] [...] | + + + + + | [facility] | [address] [place] [address] | [place] [address] | | | PATHOLOGY | [address] | | | + + + + + | [facility] DEPARTMENT OF | [facility] | [place] [address] | | | PATHOLOGY | [address] [...] + + + + | [facility] DEPARTMENT OF | [address] [facility] | [place] [address] | | | PATHOLOGY | [address] | | | + + + + + | [facility] DEPARTMENT OF | [address] [facility] | [place] [address] | | | PATHOLOGY | [address] | | | + + + + + MAGNESIUM, PLASMA (06/28/2006 7:40 PM PDT) + +-------+ + + + | Component | Value | Ref Range | Performed | Pathologist | | | | | At | Signature | + +-------+ + + + | MAGNESIUM,P | 2.2 | 1.8 - 2.5 mg/dL | [facility] | | | LASMA | | | [...] + + + + | [facility] DEPARTMENT OF | [address] | [place] [address] | | | PATHOLOGY | [address] | | | + + + + + | [facility] DEPARTMENT OF | [address] | [place] [address] | | | PATHOLOGY | [address] [...] | + + + + + | [facility] DEPARTMENT OF | [address] | [place] [address] | | | PATHOLOGY | [address] | | | + + + + + | [facility] DEPARTMENT OF | [address] | [place] [address] | | | PATHOLOGY | [address] | | | + + + + + MAGNESIUM, PLASMA (06/28/2006 6:20 AM PDT) + +-------+ + + + | Component | Value | Ref Range | Performed | Pathologist | | | | | At | Signature | + +-------+ + + + | MAGNESIUM,P | 2.1 | 1.8 - 2.5 mg/dL | [facility] | | | [facility] | | | DEPARTMENT | | | | | | OF | | | | | | PATHOLOGY | | + +-------+ + + + + + | Specimen | + + | | + + + + + + + | Performing | Address | City/State/Zipcode | Phone Number | | Organization | | | | + + + + + | [facility] | [address] [facility] | [place] [address] | | | PATHOLOGY | [address] | | | + + + + + | [facility] | [address] [place] [address] | [place] [address] | | | PATHOLOGY | [address] [...] DEPARTMENT OF | [address] | [place] [address] | | | PATHOLOGY | [address] | | | + + + + + | [facility] DEPARTMENT OF | [address] | [place] [address] | | | PATHOLOGY | [address] [...] | + + + + + | [facility] | [address] [facility] | [place] [address] | | | PATHOLOGY | [address] | | | + + + + + | [facility] | [address] [place] [address] | [place] [address] | | | PATHOLOGY | [address] [...] + + + + | [facility] DEPARTMENT OF | [address] | [place] [address] | | | PATHOLOGY | [address] | | | + + + + + | [facility] DEPARTMENT OF | [address] | [place] [address] | | | PATHOLOGY | [address] [...] + + + + | [facility] DEPARTMENT OF | [address] | [place] [address] | | | PATHOLOGY | [address] | | | + + + + + | [facility] | [facility] [address] | [place] [address] | | | PATHOLOGY | [address] [...] DEPARTMENT OF | [address] | [place] [address] | | | PATHOLOGY | [address] | | | + + + + + | [facility] DEPARTMENT | [address] | [place] [address] | | | PATHOLOGY | [address] | | | + + + + + MAGNESIUM, PLASMA (06/27/2006 5:40 PM PDT) + +-------+ + + + | Component | Value | Ref Range | Performed | Pathologist | | | | | At | Signature | + +-------+ + + + | MAGNESIUM,P | 1.8 | 1.8 - 2.5 mg/dL | [facility] | | | LASMA | | [...] | + + + + + | [facility] | [address] | [place] [address] | | | PATHOLOGY | [address] | | | + + + + + | [facility] | [address] | [place] [address] | | | PATHOLOGY | [address] [...] + + + + | [facility] DEPARTMENT OF | [address] | [place] [address] | | | PATHOLOGY | [address] | | | + + + + + | [facility] DEPARTMENT OF | [address] | [place] [address] | | | PATHOLOGY | [address] [...] 1.17Comment: | 0.90 - 1.20 INR | [facility] | | | | PT INR [...] + + + + | [facility] DEPARTMENT OF | [address] [facility] | [place] [address] | | | PATHOLOGY | [address] | | | + + + + + | [facility] DEPARTMENT OF | [address] [facility] | [place] [address] | | | PATHOLOGY | [address] [...] + + + | Test performed at [facility] | | + + + + + + + + | Performing | Address | City/State/Zipcode | Phone Number | | Organization | | | | + + + + + | [facility] | [address] | [place] [address] | | | LABORATORY | | | [...] + + + | Test performed at [facility] | | + + + + + + + + | Performing | Address | City/State/Zipcode | Phone Number | | Organization | | | | + + + + + | [facility] | [address] | [place] [address] | | | LABORATORY | | | | + + + + + IOD-ORGANIC BASE CONFIRM (06/27/2006 11:55 AM PDT) + + | Specimen | + + | | + + + + + | Narrative | Performed At | + + + | Test performed at [facility] | [facility] | | | DEPARTMENT OF | | | PATHOLOGY | + + + + + + + + | Performing | Address | City/State/Zipcode | Phone Number | | Organization | | | | + + + + + | [facility] | [address] | [place] [address] | | | PATHOLOGY | [address] | | | + + + + + | [facility] | [address] [place] [address] [address] | [place] [address] | | | PATHOLOGY | [address] [...] | | | | | performed at [facility] | | | | | | [facility] | | | | | | Laboratory. | | | | + + + + + + + + | Specimen | + + | | + + + + + + + | Performing | Address | City/State/Zipcode | Phone Number | | Organization | | | | + + + + + | [facility] | [address] | [place] [address] | | | LAB-MICRO | | | [...] | uIU/ml | | | | | [facility] | | | | | | Laboratories. | | | | + + + + + + + + | Specimen | + + | | + + + + + + + | Performing | Address | City/State/Zipcode | Phone Number | | Organization | | | | + + + + + | [facility] | [address] | [place] [address] | | | LABORATORY | | | [...] DEPARTMENT OF | [address] | [place] [address] | | | PATHOLOGY | [address] | | | + + + + + | [facility] DEPARTMENT | [address] | [place] [address] | | | PATHOLOGY | [address] [...] + + + + | [facility] DEPARTMENT OF | [address] [facility] | [place] [address] | | | PATHOLOGY | [address] | | | + + + + + | [facility] DEPARTMENT OF | [facility] | [place] [address] | | | PATHOLOGY | [address] [...] + + + + | [facility] DEPARTMENT OF | [address] | [place] [address] | | | PATHOLOGY | [address] | | | + + + + + | [facility] DEPARTMENT OF | [address] | [place] [address] | | | PATHOLOGY | [address] [...] | + + + + + | [facility] | [address] | [place] [address] | | | PATHOLOGY | [address] | | | + + + + + | [facility] DEPARTMENT OF | [address] | [place] [address] | | | PATHOLOGY | [address] [...] + + + + | [facility] DEPARTMENT OF | [address] [facility] | [place] [address] | | | PATHOLOGY | [address] | | | + + + + + | [facility] DEPARTMENT OF | [address] [facility] | [place] [address] | | | PATHOLOGY | [address] [...] + + + + | [facility] DEPARTMENT OF | [address] | [place] [address] | | | PATHOLOGY | [address] | | | + + + + + | [facility] DEPARTMENT OF | [address] | [place] [address] | | | PATHOLOGY | [address] | | | + + + + + PHOSPHORUS, PLASMA (06/27/2006 6:45 AM PDT) + +---------+ + + + | Component | Value | Ref Range | Performed | Pathologist | | | | | At | Signature | + +---------+ + + + | PHOSPHORUS, | 0.5 (*) | 2.4 - 4.7 mg/dL | [facility] | | | PLASMA | | | [...] DEPARTMENT OF | [address] | [place] [address] | | | PATHOLOGY | [address] | | | + + + + + | [facility] | [address] | [place] [address] | | | PATHOLOGY | [address] | | | + + + + + CULT, BLOOD FINN & EDITH (06/27/2006 4:15 AM PDT) + [...] | | | | | performed at [facility] | | | | | | [facility] | | | | | | Laboratory. | | | | + + + + + + + + | Specimen | + + | | + + + + + + + | Performing | Address | City/State/Zipcode | Phone Number | | Organization | | | | + + + + + | [facility] | [address] | [place] [address] | | | LAB-MICRO | | | [...] | | | | | performed at [facility] | | | | | | [facility] | | | | | | Laboratory. | | | | + + + + + + + + | Specimen | + + | | + + + + + + + | Performing | Address | City/State/Zipcode | Phone Number | | Organization | | | | + + + + + | [facility] | [address] | [place] [address] | | | LAB-MICRO | | | [...] DEPARTMENT OF | [address] | [place] [address] | | | PATHOLOGY | [address] | | | + + + + + | [facility] | [address] | [place] [address] | | | PATHOLOGY | [address] [...] | | | | AG, SERUM | [facility] | | | | | | Laboratories. | | | | + + + + + + + + | Specimen | + + | | + + + + + + + | Performing | Address | City/State/Zipcode | Phone Number | | Organization | | | | + + + + + | [facility] | [address] | [place] [address] | | | LABORATORY | | | [...] by Dustin | | | | | TAL, SERUM | [facility] | | | | | | Laboratories. | | | | + + + + + + + + | Specimen | + + | | + + + + + + + | Performing | Address | City/State/Zipcode | Phone Number | | Organization | | | | + + + + + | [facility] | [address] | [place] [address] | | | LABORATORY | | | [...] | | | | | | Chong Padron | | | | | | [facility]el[facility]. | | | | + + + + + + + + | Specimen | + + | | + + + + + + + | Performing | Address | City/State/Zipcode | Phone Number | | Organization | | | | + + + + + | [facility] | [address] | [place] [address] | | | LABORATORY | | | | + + + + + CULT, PAUL SEWELL (06/27/2006 4:00 AM PDT) + + + [...] | | | | | performed at [facility] | | | | | | [facility] | | | | | | Laboratory. | | | | + + + + + + + + | Specimen | + + | | + + + + + + + | Performing | Address | City/State/Zipcode | Phone Number | | Organization | | | | + + + + + | [facility] | [address] | [place] [address] | | | LAB-MICRO | | | [...] + + + + | [facility] DEPARTMENT OF | [facility] | [place] [address] | | | PATHOLOGY | [address] | | | + + + + + | [facility] DEPARTMENT OF | [address] [facility] | [place] [address] | | | PATHOLOGY | [address] [...] | + + + + + | [facility] | [address] [facility] | [place] [address] | | | PATHOLOGY | [address] | | | + + + + + | [facility] | [address] [facility] | [place] [address] | | | PATHOLOGY | [address] [...] + + + + | [facility] DEPARTMENT OF | [address] [facility] | [place] [address] | | | PATHOLOGY | [address] | | | + + + + + | [facility] DEPARTMENT OF | [address] [facility] | [place] [address] | | | PATHOLOGY | [address] [...] + + + + | [facility] DEPARTMENT | [address] | [place] [address] | | | PATHOLOGY | [address] | | | + + + + + | [facility] | [address] | [place] [address] | | | PATHOLOGY | [address] [...] + + + + | [facility] DEPARTMENT OF | [address] [facility] | [place] [address] | | | PATHOLOGY | [address] | | | + + + + + | [facility] DEPARTMENT OF | [address] [facility] | [place] [address] | | | PATHOLOGY | [address] [...] + + + + | [facility] DEPARTMENT | [address] [facility] | [place] [address] | | | PATHOLOGY | [address] | | | + + + + + | [facility] | [address] [facility] | [place] [address] | | | PATHOLOGY | [address] [...] + + | Arterial Blood Gas | [facility] | | | DEPARTMENT OF | | | PATHOLOGY | + + + + + + + + | Performing | Address | City/State/Zipcode | Phone Number | | Organization | | | | + + + + + | [facility] DEPARTMENT OF | [address] | [place] [address] | | | PATHOLOGY | [address] | | | + + + + + | [facility] DEPARTMENT OF | [address] | [place] [address] | | | PATHOLOGY | [address] [...] DEPARTMENT OF | [address] | [place], [facility] | | | PATHOLOGY | [address] | | | + + + + + | [facility] | [address] | [place] [address] | | | PATHOLOGY | [address] [...] | | | | | VIEW | ANGE | | | | | | ISAI-Radiologist 2: | | | | | | ABBEY MAURER CHEST: | | | | | | 06.26.2006 COMPARISON: | | | | | | [...] + + + + | [facility] DEPARTMENT OF | [address] | [place] [address] | | | PATHOLOGY | [address] | | | + + + + + | [facility] DEPARTMENT OF | [address] | [place] [address] | | | PATHOLOGY | [address] [...] | | | | the [facility] LabManual: | | | | | | [email or web address] | | | | | | [...] | + + + + + | [facility] | [facility] | [place] [address] | | | PATHOLOGY | [address] | | | + + + + + | [facility] DEPARTMENT OF | [address] | [place] [address] | | | PATHOLOGY | [address] [...] DEPARTMENT OF | [address] | [place] [address] | | | PATHOLOGY | [address] | | | + + + + + | [facility] DEPARTMENT OF | [address] | [place] [address] | | | PATHOLOGY | [address] [...] DEPARTMENT OF | [address] | [place] [address] | | | PATHOLOGY | [address] | | | + + + + + | [facility] DEPARTMENT OF | [address] | [place] [address] | | | PATHOLOGY | [address] [...] | + + + + + | [facility] | [address] | [place] [address] | | | PATHOLOGY | [address] | | | + + + + + | [facility] OF | [address] | [place] [address] | | | PATHOLOGY | [address] [...] | + + + + + | [facility] | [address] [facility] | [place] [address] | | | PATHOLOGY | [address] | | | + + + + + | [facility] | [address] [facility] | [place] [address] | | | PATHOLOGY | [address] [...] | + + + + + | [facility] DEPARTMENT OF | [address] | [place] [address] | | | PATHOLOGY | [address] | | | + + + + + | [facility] DEPARTMENT OF | [address] | [place] [address] | | | PATHOLOGY | [address] [...] | + + + + + | [facility] | [address] [facility] | [place] [address] | | | PATHOLOGY | [address] | | | + + + + + | [facility] | [address] [place] [address] | [place] [address] | | | PATHOLOGY | JORGE LUIS [...] DEPARTMENT OF | [address] | [place] [address] | | | PATHOLOGY | [address] | | | + + + + + | [facility] DEPARTMENT OF | [address] | [place] [address] | | | PATHOLOGY | [address] | | | + + + + + MAGNESIUM, PLASMA (06/26/2006 4:15 PM PDT) + +-------+ + + + | Component | Value | Ref Range | Performed | Pathologist | | | | | At | Signature | + +-------+ + + + | MAGNESIUM,P | 2.3 | 1.8 - 2.5 mg/dL | DESU | | | LASMA | | | [...] + + + + | [facility] DEPARTMENT OF | [address] | [place] [address] | | | PATHOLOGY | [address] | | | + + + + + | [facility] DEPARTMENT OF | [address] | [place] [address] | | | PATHOLOGY | [address] [...] + + + + | [facility] DEPARTMENT OF | [address] | [place] [address] | | | PATHOLOGY | [address] | | | + + + + + | [facility] OF | [address] | [place] [address] | | | PATHOLOGY | [address] [...] + + | [facility] DEPARTMENT OF | [address] | [place] [address] | | | PATHOLOGY | [address] | | | + + + + + | [facility] DEPARTMENT OF | [address] | [place] [address] | | | PATHOLOGY | [address] [...] DEPARTMENT OF | [address] | [place] [address] | | | PATHOLOGY | [address] | | | + + + + + | [facility] DEPARTMENT OF | [address] | [place] [address] | | | PATHOLOGY | [address] [...] + + + + | [facility] DEPARTMENT OF | [address] | [place] [address] | | | PATHOLOGY | [address] | | | + + + + + | [facility] DEPARTMENT OF | [address] | [place] [address] | | | PATHOLOGY | [address] | | | + + + + + documented in this encounter Visit Diagnoses Not on filedocumented in this encounter"
--- OUTSIDE RECORDS SUMMARY | ~2020-08-10 | XMS | Encounter Summary ---
Demographics + + + | Address | [address] | | | [place] [address] | + + + | Home Phone [...] Team Providers + +------+ + | Care Serging Machine Operator Automatic Name | Role | Phone | + +------+ + | Romy De La Paz MD | PCP | | + +------+ + Encounter Details +--------+ + + + + | Date | Type | Department | Care Team | Description | +--------+ + + + + | 07/18/ | Clinical | [facility] | | Radiculopathy of | | 2018 | Support | NEUROSURGERY [address] | | thoracolumbar | | | | [address] | | region; | | | | [place], [place] | | Postlaminectomy | | | | [address] | | syndrome, thoracic | | | | [phone] | | region | +--------+ + + [...] concerns feel free to call us at [phone]. documented in this encounter Progress Notes Niki [...] UTI's as well. Patient was sent to [facility] for their scheduled pre-admit appointment, anesthesia [...] 08/20/ | Office | Pain Medicine | Belenchepe Denys Kadi, | | | 2019 | Visit | | DO [address] | | | | | | [place] | | | | | | [address] | | | | | | | | +--------+---------+ + + + | 09/01/ | Office | Cardiology | Monserrat Weems | | | 2019 | Visit | | [address] | | | | | | [address] | | | | | | [place] [address] | | | | | | [phone] | | | | | | | | +--------+---------+ + + + documented as of this encounter Visit Diagnoses + + | Diagnosis | + + | Radiculopathy of thoracolumbar region Thoracic or lumbosacral neuritis or | | radiculitis, unspecified | + + | Postlaminectomy syndrome, thoracic region | + + documented in this encounter
--- OUTSIDE RECORDS SUMMARY | ~2020-08-10 | XMS | Encounter Summary ---
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 | | | | | [address] [place] | [place] [address] | | | | | [place] [address] | | | | | | [phone] | | | +--------+ + + + [...] [place] | | | | | | [address] | | | | | | | | +--------+---------+ + + + | 09/01/ | Office | Cardiology | Monserrat Weems | | | 2020 | Visit | | [address] | | | | | | [address] | | | | | | [place] [address] | | | | | | [phone] | | | | | | | [...]
--- OUTSIDE RECORDS SUMMARY | ~2020-08-10 | XMS | Encounter Summary ---
Demographics + + + | Address | [address] | | | [place] [address] | + + + | Home Phone [...] Providers + +------+ + | Care Systems Accountant Name | Role | Phone | [...] low | J Luis, | [address] | | | | | back pain | Shay Mukherjee MD | [place], | | | | | Lumbar | [address] | [place] | | | | | radiculopath | [address] [place] | [address] | | | | | y | [place], [place] | Phone: | | | | | Procedures | [address] | [phone] | | | | | MRI Lumbar | Phone: | Fax: | | | | | Spine wo | [phone] | [phone] | | | | | Contrast | Fax: | | | | | | MRI | [phone] | | +--------+--------+ + + + + Encounter Details +--------+ + + + + | Date | Type | Department | Care Team | Description | +--------+ + + + + | 03/07/ | Orders Only | [facility] | Shay Dietz | Chronic low back | | 2014 | | PHYSIATRY [address] | [address], [address] | pain (Primary Dx); | | | | [address] | [address] [place] [facility] [place] | Lumbar radiculopathy | | | | [place] [facility], [place] | [address] | | | | | [address] | | | | | | [phone] | | | +--------+ + + + [...] [place] | | | | | | [address] | | | | | | | | +--------+---------+ + + + | 09/01/ | Office | Cardiology | Monserrat Weems | | | 2020 | Visit | | [address] | | | | | | [address] | | | | | | [place] [address] | | | | | | [phone] | | | | | | | [...] + | MISCELLANEOUS LAB | | | [phone] | + +---------+ + + | MISCELANIOUS LAB | | | [phone] | + +---------+ + + documented in this encounter Visit Diagnoses + + | Diagnosis | + + | Chronic low back pain - Primary Lumbago | + + | Lumbar radiculopathy Thoracic or lumbosacral neuritis or radiculitis, unspecified | + + documented in this encounter"
--- OUTSIDE RECORDS SUMMARY | ~2020-08-10 | XMS | Encounter Summary ---
Demographics + + + | Address | [address] | | | [place] [address] | + + + | Home Phone [...] Team Providers + +------+ + | Care Tooling Specialist Name | Role | Phone | + +------+ + | Romy De La Paz MD | PCP | | + +------+ + Reason for Visit +--------+--------+ + | Reason | Onset | Comments | | | Date | | +--------+--------+ + | Other | 03/27/ | Patient can't afford Eliquis. | | | 2020 | | +--------+--------+ + Encounter Details +--------+ + + + + | Date | Type | Department | Care Team | Description | +--------+ + + + + | 03/27/ | Telephone | [facility] | Miesha Jeter | Other (Patient can't | | 2019 | | CARDIOLOGY DANIEL Holloway, Glassware Maker | bharat Mcelroy. ) | | | | [address] | | | | | | [facility] [place] | | | | | | [address] | | | | | | [phone] | | | +--------+ + + + [...] Miscellaneous Notes Telephone Encounter - Miesha Jeter, Glassware Maker - 03/31/2020 4:19 PM PDTPatien t called back stating that her insurance would not cover any of these medications. She said at this time she is refusing to pay for them and she is going to take a baby ASA o nly. I told her I would at least send her the information on getting Eliquis paid for and she sa id she has already been denied from the last time she filled the paperwork out a few months ago. I told her I would document this in her chart and let Dr Castillo know. MUSHTAQ:SIN. el ephone Encounter - Miesha Jeter, Glassware Maker - 03/31/2020 8:35 AM PDTCall made to patient to advise of Dr. Castillo's notes. Patient stated understanding. Patient will check with her insurance to see if they are covered, and she will let us know. She thinks that she was on the Xarelto at one time, but Dr De La Paz took her off of it stating pt didn't need it. Pt is willing to use Xarelto if they are still going to cover it. MUSHTAQ:SIN. el ephone Encounter - Miesha Jeter, Glassware Maker - 03/27/2020 3:[address] that she is unable to afford the Eliquis. I have tried to talk to her insurance, and they have denied both attempts of getting the El iquis covered. I asked the patient if she is willing to go on a different blood thinner, and she says that she would not want to go on coumadin because of the INR checks, and the other blood thinner s as nice as Eliquis are just as expensive. Patient would like to discuss this with Dr Castillo for our FU visit on 04-03-20. Patient only has a few more days of Eliquis left, she is wondering if she will be ok to not take them while she is looking for another blood thinner? Message sent to Dr Castillo. JDW:SOLAR SALES ENERGY ADVISOR-AAMA. . [facility]ed in this encounter Plan of Treatment +--------+---------+ + + + | Date | Type | Specialty | Care Team | Description | +--------+---------+ + + + | 08/20/ | Office | Pain Medicine | Denys Sibley, | | | 2019 | Visit | | DO [address] | | | | | | [place] | | | | | | [address] | | | | | | | | +--------+---------+ + + + | 09/01/ | Office | Cardiology | Monserrat Weems | | 2019 | Visit | | [address] | | | | | | [address] | | | | | | [place] [address] | | | | | | [phone] | | | | | | | | +--------+---------+ + + + documented as of this encounter Visit Diagnoses Not on filedocumented in this encounter"
--- OUTSIDE RECORDS SUMMARY | ~2020-08-10 | XMS | Encounter Summary ---
Demographics + + + | Address | [address] | | | [place] [address] | + + + | Home Phone [...] Team Providers + +------+ + | Care Lobster Man Name | Role | Phone | [...] + + | 07/20/ | Telephone | [facility] | Maykel Hutchins MD | Procedure (Question) | | 2019 | | [facility] | [address] | | | | | ORTHOPEDIC SPINE | [place], [place] | | | | | [address] | [address] | | | | | [place] | | | | | | [address] | | | | | | [phone] | | | +--------+ + + + [...] [address] | | | | | | [place] [address] | | | | | | [phone] | | | | | | | | +--------+---------+ + + + documented as of this encounter Visit Diagnoses Not on filedocumented in this encounter"
--- OUTSIDE RECORDS SUMMARY | ~2020-08-10 | XMS | Encounter Summary ---
Demographics + + + | Address | [address] | | | [place] [address] | + + + | Home Phone [...] Providers + +------+ + | Care Data Management Analyst Name | Role | Phone | [...] [address] | [address] | | | | | [address] [place] | | | | | [place], [place] | [address] | | | | | [address] | | | | | | [phone] | | | +--------+ + + + [...] [place] | | | | | | [address] | | | | | | | | +--------+---------+ + + + | 09/01/ | Office | Cardiology | Monserrat Weems | | | 2019 | Visit | | [address] | | | | | | [address] | | | | | | [place] [address] | | | | | | [phone] | | | | | | | | +--------+---------+ + + + documented as of this encounter Visit Diagnoses Not on filedocumented in this encounter"
--- OUTSIDE RECORDS SUMMARY | ~2020-08-10 | XMS | Encounter Summary ---
Demographics + + + | Address | [address] | | | [place] [address] | + + + | Home Phone [...] Team Providers + +------+ + | Care Aeronautical Research Engineer Name | Role | Phone | [...] Description | +--------+---------+ + + + | 07/21/ | Office | [facility] | Denys Sibley, | Spinal stenosis of | | 2019 | Visit | [facility] | DO [address] | lumbosacral region | | | | [address] | [place] | (Primary Dx); S/P | | | | [address] | [address] | insertion of spinal | | | | [place], [place] | | cord stimulator; | | | | [address] | | Degenerative lumbar | | | | [phone] | | spinal stenosis; | | | | | | Intractable back | | | | | | pain; Chronic pain | | | | | | disorder; | | | | | | [...] radiculopathy; | | | | | | Encounter for | | | | | | long-term use of | | | | | | opiate analgesic; | | | | | | Chronic bilateral | | | | | | low back pain | | | | | | without sciatica; | | | | | | Lumbar region | | | | | | somatic dysfunction | +--------+---------+ + + + Social History [...] + + + | Blood Pressure | 91/54 | 07/21/2020 9:07 AM | | | | | PDT | | + + + + + | Pulse | 67 | 07/21/2020 9:07 AM | | | | | PDT | | + + + + + | Temperature | 37.1 C (98.8 F) | 07/21/2020 9:07 AM | | | | | PDT | | + + + + + | Respiratory Rate | 16 | 07/21/2020 9:07 AM | | | | | PDT | | + + + + + | Oxygen Saturation | 99% | 07/21/2020 9:07 AM | | | | | PDT | | + + + + + | Inhaled Oxygen | - | - | | | Concentration | | | | + + + + + | Weight | - | - | | + + + + + | Height | 154.9 cm (5' 1") | 07/21/2020 9:07 AM | | | | | PDT | | + + + + + | Body Mass Index | - | - | | + + + + + documented in this encounter Progress Denys Posada DO - 07/21/2020 9:20 AM PDTFormatting of this note might be different fr om the original. CHRONIC PAIN VISIT Patient ID: Kori Harshal Rubio is a 75 y.o. female (: 1945). Subjective: Chronic Pain: The primary encounter diagnosis was Spinal stenosis of lumbosacral region. Diagnoses of S/P insertion of spinal cord stimulator, Degenerative lumbar spinal stenosis, Intractable back pain, Chronic pain disorder, Spondylosis without myelopathy or radiculopathy, lumbosacral re gion, Spondylosis without myelopathy or radiculopathy, cervical region, Scoliosis of lumbar spine, unspecified scoliosis type, Spondylosis of lumbar region without myelopathy or radicu lopathy, Encounter for long-term use of opiate analgesic, Chronic bilateral low back pain wi thout sciatica, and Lumbar region somatic dysfunction were also pertinent to this visit. Kori [...] including but not limited to physical therapy, child daycare worker, acupuncture, massage therapy, and nutritional healt h counselors. and mental health counselors as deemed necessary Today's Pain Score: 5/10. Patient states that her pain overall is [...] ss toward meeting that goal has been: fair to poor. Medication FYI Flag Type Author Status Filed Medication Agreement Rupa Nye, Director Biologics Active 11/14/2019 1:49 PM Pain Contract- Dr. Sibley 11/14/2019 PEG Pain screening tool (Pain, enjoyment, general activity) Total score: (Printable questionnaires in Macanese ) Interpretation of Total Score: PEG scores are used to track changes over time. It should de crease after therapy has begun. Last 4 PEG Scores: No flowsheet data found. Opioid Risk Tool (ORT): Total Score Temp: 37.1 C (98.8 F) Temp Source: Oral Pulse: 67 Resp: 16 BP: 91/54 SpO2: 99 % (From Chronic Pain tab; printable questionnaires in Macanese) Interpretation of Total Score: 0 to 3 = Low risk: 6% chance of developing problematic behav iors, 4 to 7 = Moderate risk: 28% chance of developing problematic behaviors, 8 or more = Hi gh risk: 90% chance of developing problematic behaviors. No flowsheet data found. Outpatient Morphine Equivalent Daily Dose (MEDD) 07/21/20 - 08/20/20 60 mg MEDD Order Name Dose Route [...] factor of 1 = 60 mg MEDD 08/21/20 and after None Current Outpatient Medications: ALBUTEROL IN, Inhale into the lungs., Disp: , Rfl: alendronate (FOSAMAX) 70 mg tablet, TAKE 1 TABLET BY MOUTH ONCE A WEEK, Disp: , Rfl: Calcium Carb-Cholecalciferol (CALCIUM 600 + D PO), Take by mouth., Disp: , Rfl: clonazePAM (KLONOPIN) 1 mg tablet, Take 1-2 mg by mouth nightly as needed for Anxiety Usually takes qhs, has been on it 20 year., Disp: , Rfl: fluticasone (FLONASE) 50 mcg/nasal [...] hr tablet, Take 1 tablet by mouth Daily. (Haris ruiz taking differently: Take 25 mg by mouth nightly .), Disp: 30 tablet, Rfl: 11 naloxone (NARCAN) 4 mg/nasal spray, 1 spray by Nasal route as needed for Decreased Res ponsiveness (May repeat with second device into other nostril after 2 minutes)., Disp: 2 eac h, Rfl: 1 pramipexole (MIRAPEX) 0.5 MG tablet, 0.5 mg ., Disp: , Rfl: rOPINIRole (REQUIP) 4 mg tablet, Take 4 mg by mouth 2 times daily ., Disp: , Rfl: warfarin (COUMADIN) 5 mg [...] smoke from father growing up , Substance Use Topics Alcohol use: Yes Comment: Alcoholic Drinks/day: not often..twice per year Social History Substance and Sexual Activity Drug Use No Comment: Drug use: No Mood Screening: PHQ-9 Depression Scale6 (5-9 = Mild, 10-14 = Moderate, 15-19 = Moderately Severe, 20-27 = Severe) Anxiety Scale 9(5-9 = Mild, 10-14 = Moderate, 15-21 = Severe Anxiety) Additional Problems: HPI Degenerative lumbar spinal stenosis, spinal stenosis lumbosacral area, spondylosis without myelopathy, spondylosis without myelopathy in the cervical region, scoliosis lumbar spine, l roberta-term current use of opiate analgesics, lumbar region somatic dysfunction, chronic bilate ral low back pain, chronic pain syndrome, status post insertion of spinal cord stimulator, l roberta-term current use of opiate analgesics History: Past Medical [...] Active Problem List Diagnosis Date Noted POA Paroxysmal atrial fibrillation 06/26/2020 Unknown Essential hypertension 06/26/2020 Unknown Mixed hyperlipidemia 06/26/2020 Unknown Diet-controlled diabetes mellitus 06/26/2020 Unknown History of transient ischemic attack (TIA) 06/26/2020 Unknown S/P insertion of spinal cord stimulator 08/16/2019 Unknown Spondylosis without myelopathy or radiculopathy, cervical region 03/20/2019 Unknown Spondylosis without myelopathy or radiculopathy, lumbosacral region 03/20/2019 Unknown Chronic bilateral low back pain without sciatica 03/20/2019 Unknown Intervertebral disc disorders with radiculopathy, lumbosacral region 02/25/2019 Unknown Chronic low back pain with sciatica 02/25/2019 Unknown Lumbar region somatic dysfunction 02/25/2019 Unknown Spinal stenosis of lumbosacral region 02/25/2019 Unknown Chronic pain disorder 11/21/2018 Unknown Encounter for long-term use of opiate analgesic 11/21/2018 Unknown Degenerative lumbar spinal stenosis 11/12/2018 Unknown Closed compression fracture of L5 vertebra 06/07/2018 Unknown Right lumbar radiculopathy 07/12/2017 Unknown Palpitations 03/09/2016 Unknown Peripheral vertigo 11/20/2015 Unknown Cervical radiculopathy 07/26/2014 Unknown Myelopathy 07/26/2014 Unknown Intractable back pain 07/17/2014 Unknown Scoliosis of lumbar spine 04/17/2014 Unknown 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 12/19/2013 Unknown PPS (pelvic pain syndrome) 12/09/2013 Unknown Recurrent UTI 12/09/2013 Unknown Gait difficulty 11/19/2013 Unknown History of oral aphthous ulcers 11/19/2013 Unknown Impaired mobility and ADLs 11/19/2013 Unknown COPD (chronic obstructive pulmonary disease) 11/17/2013 Unknown Hypothyroid 11/17/2013 Unknown Anemia, unspecified 11/16/2013 Unknown Overdose of muscle relaxant 11/15/2013 Unknown Chronic low back pain 08/26/2013 Unknown Facet arthritis of lumbar region 08/26/2013 Unknown Left lumbar radiculopathy 11/01/2012 Unknown SACROILIITIS Unknown BURSITIS, HIP Unknown BACK PAIN, LUMBAR Unknown OSTEOARTHRITIS, LUMBOSACRAL SPINE Unknown COUGH VARIANT ASTHMA Unknown Chronic diarrhea Unknown ESOPHAGEAL REFLUX Unknown GENERALIZED ANXIETY DISORDER Unknown RESTLESS LEG SYNDROME Unknown HYPOGLYCEMIA Unknown INSOMNIA DUE TO MENTAL DISORDER Unknown Depression, major, recurrent - with multiple prior suicide attempts Unknown DDD (degenerative disc disease), lumbar Unknown ORGANIC INSOMNIA UNSPECIFIED 08/31/2011 Unknown Past Surgical History: Procedure Laterality Date ANKLE FRACTURE SURGERY Left 2011 BLADDER SUSPENSION BREAST SURGERY LUMPECTOMY BREAST SURGERY Left 1996 CARDIAC CATHERIZATION 2016 no stents SECTION 1974 SECTION CHOLECYSTECTOMY 1998 SAH CHOLECYSTECTOMY COLONOSCOPY 2009 COLONOSCOPY CYSTOCELE REPAIR FIXATION KYPHOPLASTY 06/13/2018 Procedure: KYPHOPLASTY; Surgeon: Alfredo Casillas DO; Location: [facility]; Service: Pa in Management; Laterality: N/A; L5 FRACTURE SURGERY ANKLE HERNIA REPAIR HYSTERECTOMY HYSTERECTOMY LAMINECTOMY N/A 08/03/2019 Procedure: LAMINOTOMY THORACIC / LUMBAR W/ PLACEMENT SPINAL CORD STIMULATOR; Surgeon: Suly Hutchins MD; Location: [facility] OTHER SURGICAL HISTORY EPIDURAL STEROID INJECTION OTHER SURGICAL HISTORY 08/28/2018 EPIDURAL STEROID INJECTION - LESI L4-L5 OTHER SURGICAL HISTORY 09/11/2018 EPIDURAL STEROID INJECTION - LESI L5-S1 OTHER SURGICAL HISTORY UNLISTED PROCEDURE ARTHROSCOPY SLING REMOVAL , BLADDER 2006 TUBAL LIGATION UPPER GASTROINTESTINAL ENDOSCOPY Review of Systems Gastrointestinal: Negative. Genitourinary: Negative. Musculoskeletal: Positive for arthralgias, back pain, gait problem, neck pain and neck stif fness. Psychiatric/Behavioral: The patient is nervous/anxious. Objective: Vital Signs: BP 91/54 | Pulse 67 | Temp 37.1 C (98.8 F) (Oral) | Resp 16 | Ht 1.549 m (5' 1") | LMP (LMP Unknown) | SpO2 99% | BMI 21.99 kg/m Physical Exam 75-year-old female alert and oriented x4 no acute distress vital signs are st able bowel bladder continent no bowel issues with current medication. Current medication we give her includes Seaman 10/325 1 p.o. every 4 hours as needed pain, R obaxin 500 mg p.o. every 8 hours as needed muscle spasms Active range of motion bilateral upper extremities within functional limits muscle strength is 4/5. Active range of motion bilateral lower extremities within functional limits muscle strength is 4/5. Patient has difficulty raising her heels and toes bilaterally. Straight leg test is equivocal. Seated flexion test is positive, standing flexion test is positive, balance s itting is good standing is fair plus. Gait is within functional limits short distances util izing single-point cane. Patient utilizes a manual wheelchair for distance transportation. And does have a history of frequent falling Patient states she is slated for cervical and lumbar MRIs today as ordered by barrett calle. Patient does have a spinal cord stimulator that is working but does not appear to b e working as well as it did in the past. Patient states current medication provides significant pain relief and improved quality of life. Patient return to the office in 4 weeks for reevaluation Patient demonstrates improved functional status on [...] reviewed, listed controlled substances are consistent with [facility] prescriptions and patient reported use. Controlled Medications: no change. Refills given as appropriate for the next 1 months, and she will follow up befo re next refill is due. Recent Review Flowsheet Data There is no flowsheet data to display. Pertinent Pain History: Chronic pain related to items as they appear in the above history of present illness Helpful treatments: Moist heat and pain medication Failed treatments: Ice therapy ORT Score = 3 (0-3 = low risk, 4-7 = mod risk, 8+ = high risk) Daily Opioid Dose = Seaman 10/325 1 p.o. every 4 hours as needed pain Daily Morphine Equivalent Dose (MED) = 60 mg of morphine daily Chronic benzodiazepine use: Laurentain Agreement (date): {YES/NO: Visits every: Monthly Drug Screen every: 3 times a year Next Refill due: 30 days Follow-up: Monthly Alternative treatment modalities where discussed and offered to patient including but not l imited to physical therapy, massage therapy, acupuncture, child daycare worker, along with niki mmended psychological [...] complications with the passage of time. 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 This document has been created using [employer] Voice Recognition software and [employer]. The entry has been reviewed for content and accuracy, but there may still exist "sound alike" digitizer word errors and/or unintended additions and deletions. If there is any question please contact the author of the document: Denys Sibley DOElectronically sig marianne by Denys Sibley DO at 07/21/2020 9:39 AM PDTdocumented in this encounter Plan of Treatment +--------+---------+ + + + | Date | Type | Specialty | Care Team | Description | +--------+---------+ + + + | 08/20/ | Office | Pain Medicine | Denys Sibley, | | 2019 | Visit | | [address] | | | | | | [place] | | | | | | [id number] | | | | | | | | +--------+---------+ + + + | 09/01/ | Office | Cardiology | Monserrat Weems | | 2019 | Visit | | [address] | | | | | | [address] | | | | | | [place] [address] | | | | | | [phone] | | | | | | | | +--------+---------+ + + + documented as of this encounter Visit Diagnoses + + | Diagnosis | + + | Spinal stenosis of lumbosacral region - Primary Spinal stenosis, lumbar region, | | without neurogenic claudication | + + | S/P insertion of spinal cord stimulator | + + | Degenerative lumbar spinal stenosis Spinal stenosis, lumbar region, without | | neurogenic claudication | + + | Intractable back pain Backache, unspecified | + + | Chronic pain disorder Chronic pain syndrome | + + | Spondylosis without myelopathy or radiculopathy, lumbosacral region | + + | Spondylosis without myelopathy or radiculopathy, cervical region | + + | Scoliosis of lumbar spine, unspecified scoliosis type | + + | Spondylosis of lumbar region without myelopathy or radiculopathy Lumbosacral | | spondylosis without myelopathy | + + | Encounter for long-term use of opiate analgesic Encounter for long-term (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 | | of other medications | + + | Chronic bilateral low back pain without sciatica | + + | Lumbar region somatic dysfunction Nonallopathic lesion of lumbar region, not | | elsewhere classified | + + documented in this encounter
--- OUTSIDE RECORDS SUMMARY | ~2020-08-10 | XMS | Encounter Summary ---
Demographics + + + | Address | [address] | | | [place] [address] | + + + | Home Phone [...] Team Providers + +------+ + | Care Legend Maker Name | Role | Phone | [...] + + | 08/06/ | Telephone | [facility] | Maykel Hutchins MD | Medication Question | | 2019 | | [facility] | [address] | | | | | ORTHOPEDIC SPINE | [place], [place] | | | | | [address] | [address] | | | | | [place], [place] | | | | | | [address] | | | | | | [phone] | | | +--------+ + + + [...] with any questions or co ncerns. elephone Autumn Looney - 08/06/2019 4:08 PM PDTRafal, is calling again for Medication Question and would like a call back. Additional Call Details: Elvin pharmacist from [facility] is needing a call back a t [phone] in regards to needing a Verbal to [...] at 08/06/2019 5:21 PM PDTTelephone Encounter - [place], Keyur Suarez - 08/06/2019 12:27 PM PDTRafal, is calling regarding Medication Question and would like a call back. Additional Call Details: Calling to get approval as patient is trying to fill HydroCodone prescription early. Please call her back at [phone]. If this is a symptom based call, was patient offered triage? Not Applicable If this is a symptom based call and you were unable to immediately transfer the call to a jose m franco bilingual instructor was caller made aware that if at [...] [place] | | | | | | [address] | | | | | | | | +--------+---------+ + + + | 09/01/ | Office | Cardiology | Monserrat Weems | | | 2019 | Visit | | [address] | | | | | | [address] | | | | | | [place] [address] | | | | | | [phone] | | | | | | | | +--------+---------+ + + + documented as of this encounter Visit Diagnoses Not on filedocumented in this encounter
--- OUTSIDE RECORDS SUMMARY | ~2020-08-10 | XMS | Encounter Summary ---
Demographics + + + | Address | [address] | | | [place] [address] | + + + | Home Phone [...] Providers + +------+ + | Care Program Management Intern Name | Role | Phone | [...] | | | [address] | [place] [address] | | | | | [place] [address] | | | | | | [phone] | | | +--------+ + + + [...] [place] | | | | | | [address] | | | | | | | | +--------+---------+ + + + | 09/01/ | Office | Cardiology | ReneejoyMonserrat tello | | | 2019 | Visit | | [address] | | | | | | [address] | | | | | | [place] [address] | | | | | | [phone] | | | | | | | [...]
--- OUTSIDE RECORDS SUMMARY | ~2020-08-10 | XMS | Encounter Summary ---
Demographics + + + | Address | [address] | | | [place] [address] | + + + | Home Phone [...] Team Providers + +------+ + | Care Purchase Request Editor Name | Role | Phone | + [...] + + | 11/19/ | Telephone | [facility] | Denys Sibley, | Pharmacy / Med | | 2020 | | [facility] | DO [address] | (question) | | | | [address] | [place], [place] | | | | | [address] | [address] | | | | | [place], [place] | | | | | | [address] | | | | | | [phone] | | | +--------+ + + + [...] Miscellaneous Notes Telephone Encounter - Ewelina Farrar Hoisting Pile Driving Engineer - 11/20/2019 5:12 PM P STI called the pharmacy back. I advised that patients medications where reviewed during her last visit. 20 5:12 PM PSTTelephone Encounter - Ewelina Farrar Hoisting Pile Driving Engineer - 020 2:03 PM PSTI called the [facility] back. The pharmacist is wanting to [...] the call to a jose m franco masonry instructor was caller made aware that if [...] [place] | | | | | | [address] | | | | | | | | +--------+---------+ + + + | 09/01/ | Office | Cardiology | Monserrat Weems | | | 2019 | Visit | | [address] | | | | | | [address] | | | | | | [place] [address] | | | | | | [phone] | | | | | | | | +--------+---------+ + + + documented as of this encounter Visit Diagnoses Not on filedocumented in this encounter"
--- OUTSIDE RECORDS SUMMARY | ~2020-08-10 | XMS | Encounter Summary ---
Demographics + + + | Address | [address] | | | [place] [address] | + + + | Home Phone [...] Providers + +------+ + | Care Lens Coating Technician Name | Role | Phone | + +------+ + | Romy De La Paz MD | PCP | | + +------+ + Reason for Visit + +--------+ + | Reason | Onset | Comments | | | Date | | + +--------+ + | Back Pain | 08/31/ | Severe pain | | | 2018 | | + +--------+ + Encounter Details +--------+ + + + + | Date | Type | Department | Care Team | Description | +--------+ + + + + | 08/31/ | Telephone | [facility] | Denys Sibley, | Back Pain (Severe | | 2019 | | [facility] | DO [address] | pain) | | | | [address] | [place], [place] | | | | | [address] | [address] | | | | | [place], [place] | | | | | | [address] | | | | | | [phone] | | | +--------+ + + + [...] encounter Miscellaneous Notes Telephone Encounter - Ewelina Fararr, Sisal Operator - 08/31/2019 4:38 PM Soni SINGH called patient and advised her that Dr. Sibley is out of the office until after 9. If she feels like she needs to see a provider today she may contact her PCP or go into [facility] emergency dept. She states that she will try calling her PCP. She also states that she sanchez s not want to go to the emergency room, because they will think that she is only wanting [facility] e pain medication.Electronically signed by Ewelina Farrar, Sisal Operator at 1 10/31/2018 4:48 PM PDTTelephone Encounter - Mai Polanco I - 08/31/2019 4:24 PM PDTLauririchie , is calling regarding Back Pain (Severe [...] transfer the call to a p joan single needle tufting machine operator was caller made aware that [...] [place] | | | | | | [address] | | | | | | | | +--------+---------+ + + + | 09/01/ | Office | Cardiology | Monserrat Weems | | | 2019 | Visit | | [address] | | | | | | [address] | | | | | | [place] [address] | | | | | | [phone] | | | | | | | | +--------+---------+ + + + documented as of this encounter Visit Diagnoses Not on filedocumented in this encounter"
--- OUTSIDE RECORDS SUMMARY | ~2020-08-10 | XMS | Encounter Summary ---
Demographics + + + | Address | [address] | | | [place] [address] | + + + | Home Phone [...] Team Providers + +------+ + | Care Cafeteria Cook Name | Role | Phone | + +------+ + | Wendi Aiken | PCP | | + +------+ + Encounter Details +--------+ + + + + | Date | Type | Department | Care Team | Description | +--------+ + + + + | 05/21/ | Orders Only | [facility] | Provider, | | | 2018 | | [facility] GENER[facility] OP | MD [address] | | | | | [address] | [address] | | | | | [address] [place], [place] | [place] [address] | | | | | [address] | | | | | | [phone] | | | +--------+ + + + [...] [place] | | | | | | [address] | | | | | | | | +--------+---------+ + + + | 09/01/ | Office | Cardiology | Monserrat Weems | | | 2019 | Visit | | [address] | | | | | | [address] | | | | | | [place] [address] | | | | | | [phone] | | | | | | | | +--------+---------+ + + + documented as of this encounter Visit Diagnoses Not on filedocumented in this encounter"
--- OUTSIDE RECORDS SUMMARY | ~2020-08-10 | XMS | Encounter Summary ---
Demographics + + + | Address | [address] | | | [place] [address] | + + + | Home Phone [...] Providers + +------+ + | Care Food Inspector Name | Role | Phone | [...] | | sciatica | [place] | [address] | | | | | Facet | [phone] | Phone: | | | | | arthritis of | Phone: | [phone] | | | | | lumbar | [phone] | Fax: | | | | | region | Fax: | [phone] | | | | | Foraminal | [phone] | | | | | | stenosis [...] | Popeye, | | | | | Four Slide Operator / | Low back | Oxana Solorio, | [place], | | | | Physical | pain | COCOA BUTTER FILTER OPERATOR [address] | [place] | | | | Medicine and | Bilateral | [place] | [address] | | | | Rehabilitatio | leg pain | [place], | [address] | | | | n | Bilateral | [place] [address] | [place] | | | | | hip pain | Phone: | [phone] Phone: | | | | | low back | [phone] | [phone] | | | | | pain, | Fax: | Fax: | | | | | bilateral | [phone] | [phone] | | | | | leg pain and | | | | | | | bilat hip | | | | | | | pain, last | | | | | | | OV 08/05/14. | | | | | | | Oxana | | | | | | | Popeye, FLAG CAR DRIVER | | | | | | | [...] + | 07/06/ | Office | [facility] | Spenser, | Bursitis, hip, right | | 2016 | Visit | PHYSIATRY [address] | [place] [address] | (Primary Dx); | | | | [address] | [address] | Chronic right-sided | | | | [place] | [place] [address] | low back pain with | | | | [address] | [phone] | right-sided | | | | [phone] | | sciatica; Facet | | | | | | arthritis of lumbar | | | | | | region ([facility]); | | | | | | Foraminal [...] 07/06/2016 9:31 AM PDT1) Lumbar MRI in [facility] - you need to call us when [...] of the procedure you must provide a catering truck driver to take you home. For [...] and working more hours due to the [facility] [employer] Round up. 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 Unfortunately she lola nues to have significant [...] has been ordered to be done at [facility]. 5. We will follow up once images are [...] | | | | | | [place] | | | | | | [address] | | | | | | | | +--------+---------+ + + + | 09/01/ | Office | Cardiology | Faustina Monserrat | | | 2019 | Visit | | [address] | | | | | | [address] | | | | | | [place] [address] | | | | | | [phone] | | | | | | | [...] Spondylosis ICD-10 Code M47.816 [address] | [facility] | | Joanne presents to the fluoroscopy suite for | [facility] | | fluoroscopically-guided bilateral L5-S1 facet [...] + | [facility] | [address] | [place], [place] | [phone] | | [facility] | | [address] | | | - IMAGING | | [...]
--- OUTSIDE RECORDS SUMMARY | ~2020-08-10 | XMS | Encounter Summary ---
Demographics + + + | Address | [address] | | | [place] [address] | + + + | Home Phone [...] + +------+ + | Care Quality Control Projectionist Name | Role | Phone | + +------+ + | Miquel Calhoun MD | PCP | | + +------+ + Encounter Details +--------+ + + + + | Date | Type | Department | Care Team | Description | +--------+ + + + + | 05/01/ | Hospital | [facility] | Shay Dietz | | | 2013 | Encounter | MED CTR XRAY [address] | T, MD [address] | | | | | [place] | [place], [place] | | | | | [place] [address] | [address] | | | | | [phone] | | | +--------+ + + + [...] [place] | | | | | | [address] | | | | | | | | +--------+---------+ + + + | 09/01/ | Office | Cardiology | Monserrat Weems | | | 2019 | Visit | | [address] | | | | | | [address] | | | | | | [place] [address] | | | | | | [phone] | | | | | | | [...] Performed At | + + + | [facility] Diagnostic Imaging | SCH[facility] | | Department [address] [facility], [place] | [facility] | | [ rep [address]] [ rep [facility] | | st zip] Signed | - IMAGING | | | | | Patient Name: KORI HARMON | | | Physician: OMID : [id number] Age: 67 Sex: F Unit | | | #: [id number] Exam Date: 05/01/13 Location: | | | IMG.INV Report #: [id number] Page: | | | %(RAD)RES..mtdd.print.filter("pg") of %(RAD) | | | RES..mtdd.print.filter("tpg") | | | | | | Accession Number: [id number] | | | PROCEDURE NOTE LUMBAR FACET [...] Transcribed | | | Date/Time: 05/09/2013 18:53 Property Technician: | | | <<Signature on File>> | | | Shay Mukherjee | | | MD J Luis05/15/132101 <Electronically signed by Shay Mukherjee | | | J Luis SALGADO> Shay Dietz MD 05/09/13 1813 | | | Property Technician: Xatoriquintin Salvador05/09/13 0539 | | | | | + + + + + + + + | Performing | Address | City/State/Zipcode | Phone Number | | Organization | | | | + + + + + | [facility] | [address] | [place] | [phone] | | [facility] | | [address] | | | - IMAGING | | | | + + + + + documented in this encounter Visit Diagnoses Not on filedocumented in this encounter
--- OUTSIDE RECORDS SUMMARY | ~2020-08-10 | XMS | Encounter Summary ---
Demographics + + + | Address | [address] | | | [place] [address] | + + + | Home Phone [...] Providers + +------+ + | Care Development Vice President Name | Role | Phone [...] | | | | | [place] | [place] [address] | [address] | | | | | Lumbar | Phone: | Phone: | | | | | radiculopath | [phone] | [phone] | | | | | y | Fax: | Fax: | | | | | Procedures | [phone] | [phone] | | | | | HIM 04/17/18 [...] | [place], [place] | [place] [address] | sequela (Primary | | | | [address] | [phone] | Dx); Lumbar | | | | [phone] | | radiculopathy | +--------+ + + [...] [place] | | | | | | [address] | | | | | | | | +--------+---------+ + + + | 09/01/ | Office | Cardiology | FaustinaMonserrat | | | 2019 | Visit | | [address] | | | | | | [address] | | | | | | [place] [address] | | | | | | [phone] | | | | | | | | +--------+---------+ + + + + + +--------+ + + | Name | Type | Priori | Associated Diagnoses | Order Schedule | | | | ty | | | + + +--------+ + + | AMB REFERRAL TO [facility] | Outpatient | Routin | Closed Compression [...]
--- OUTSIDE RECORDS SUMMARY | ~2020-08-10 | XMS | Encounter Summary ---
Demographics + + + | Address | [address] | | | [place] [address] | + + + | Home Phone [...] + + | 08/05/ | Emergency | [facility] | Dion Richardson | Chronic low back | | 2013 | | MED CTR EMERGENCY | Laz Richards MD | pain (Primary Dx); | | | | CENTER [address] | [address] | Weakness | | | | [place] | [place] | | | | | [address] | [address] | | | | | [phone] | | | +--------+ + + + [...] + documented as of this encounter ED Lyly Liu RN - 08/05/2014 4:20 PM PDTPt up to [facility] to void. W/o difficulty. Pt st ates she is ready to go home. Friend here to take her home. Able to stand with aid of cane. Discussed the injection and how she would feel better in a day once it dissipates. Discussed in home care provision and someone to check on her. yly Robertson RN - 08/05/2014 3:31 PM PDTPt given di [place]. Helped to dress. Doesn't want to walk. Wants a w/c. Wants to go home. Plan to watch for 20 minutes. ion Vela MD - 08/05/2014 3:18 PM PDTFormatting of this note might be differ ent from the original. [facility] Kori Mendezfelipejanene Emergency Department Encounter Note [address] [place] [address] PCP:Concepción Gallardo x2500 eMERGENCY dEPARTMENT eNCOUnter CHIEF [...] deficits noted, no facial assymetry noted. Equal psychology technician in all extremities patient is movin g [...] information: [address] [place] [address] 16:01 Patient currently mentating better feeling better. Patient wants to go home. We are ambul ating her in the emergency room here at the child. Patient will go home with friend. FINAL IMPRESSION 1. Chronic low back pain 2. Weakness Portions of this chart may have been created with [employer] voice recognition software. Occasi onal wrong-word or [...] [place] | | | | | | [address] | | | | | | | | +--------+---------+ + + + | 09/01/ | Office | Cardiology | ReneecabreraMonserrat | | | 2019 | Visit | | [address] | | | | | | [address] | | | | | | [place] [address] | | | | | | [phone] | | | | | | | [...] + | [facility] | [address] | [place] | [phone] | | [facility] | | [address] | | | - LABORATORY | | | | + + + + + | [facility] | [address] | [place], [place] | | | [facility] | | [address] | | | - LABORATORY | [...] + | [facility] | [address] | [place] | [phone] | | [facility] | | [address] | | | - LABORATORY | | | | + + + + + | [facility] | [address] | [place] | | | [facility] | | [address] | | | - LABORATORY | [...] | mL/min/1.73m2 | [facility] | | | Haitian | RATE,ESTIMATED | | MEDICAL | | | | mL/min/1.73z8Cojn than | | CENTER - | | [...] | | Phosphatase | | | [facility] | | [...] + | [facility] | [address] | [place] | [phone] | | [facility] | | [address] | | | - LABORATORY | | | | + + + + + | [facility] | [address] | [place], [place] | | | [facility] | | [address] | | | - LABORATORY | [...] | | Cells | | | [facility] | | | | | | MEDICAL | | | | | | CENTER - | | | | | | LABORATORY | | + + + + + + | Red Blood | 4.24 | 3.70 - 5.20 | [facility] | | | Cells | | M/uL | [facility] | | | | [...] | | Eosinophils | | | [facility] | | [...] | Neutrophils | | K/uL | [facility] | | | | | | MEDICAL | | | | | | CENTER - | | | | | | LABORATORY | | + + + + + + | Absolute | 2.80 | 0.60 - 3.20 | [facility] | | | Lymphocytes | | K/uL | [facility] | | | | | | MEDICAL | | | | | | CENTER - | | | | | | LABORATORY | | + + + + + + | Absolute | 0.50 | 0.00 - 1.00 | [facility] | | | Monocytes | | K/uL | [facility] | | | | | | MEDICAL | | | | | | CENTER - | | | | | | LABORATORY | | + + + + + + | Absolute | 0.10 | 0.00 - 0.40 | [facility] | | | Eosinophils | | K/uL | [facility] | | | | | | MEDICAL | | | | | | CENTER - | | | | | | LABORATORY | | + + + + + + | Absolute | 0.10 | 0.00 - 0.10 | [facility] | | | Basophils | | K/uL | [facility] | [...] + | [facility] | [address] | [place], [place] | [phone] | | [facility] | | [address] | | | - LABORATORY | | | | + + + + + | [facility] | [address] | [place], [place] | | | [facility] | | [address] [place] [address] | | | - LABORATORY | | [...] ST. | [address] | [place] | [phone] | | [facility] | | [address] | | | - LABORATORY | | | | + + + + + | [facility] | [address] | [place], [place] | | | [facility] | | [address], [facility] | | | - LABORATORY | | [...]
--- OUTSIDE RECORDS SUMMARY | ~2020-08-10 | XMS | Encounter Summary ---
Demographics + + + | Address | [address] | | | [place] [address] | + + + | Home Phone [...] Team Providers + +------+ + | Care Pipe Fitter Ammonia Name | Role | Phone | + [...] Thoracic or | [place], | [address] | | | | | lumbosacral | Shay Mukherjee MD | [place], | | | | | neuritis or | [address] | [place] | | | | | | ST [place] | [address] | | | | | radiculitis, | [place] | Phone: | | | | | unspecified | [address] | [phone] | | | | | Procedures | Phone: | Fax: | | | | | [place] INJECT | [phone] | [phone] | | | | | ANES/STEROID | Fax: | | | | | | FORAMEN | [phone] | | | | | | LUMBAR/SACRA | | | | | | | L W IMG | | | | | | | GUIDE ,1 | | | | | | | [place]EVEL [place] | | | | | | [...] + + | 04/18/ | Hospital | [facility] | Catrachodustincz, | Left lumbar | | 2013 | Encounter | MED CTR XRAY [address] | [place] [address] | radiculopathy; | | | | [address] [place] | [facility] [address] | Chronic low back | | | | [place] [address] | [place] [address] | pain; Facet | | | | [phone] | [phone] | arthritis of lumbar | | | | | | region; Foraminal | | | | | Laborer [facility] | stenosis of lumbar | | | [...] encounter Miscellaneous Notes Miscellaneous - [facility] - 05/06/2014 12:00 AM PDT iscellaneous - [facility] - 04/18/2014 12:00 AM PDTEle ctronically signed by norma [facility] at 08/08/2014 12:36 PM PDTdocumented in this encounter Plan of Treatment +--------+---------+ + + + | Date | Type | Specialty | Care Team | Description | +--------+---------+ + + + | 08/20/ | Office | Pain Medicine | Denys Sibley, | | | 2019 | Visit | | DO [address] | | | | | | [place] | | | | | | [id number] | | | | | | | | +--------+---------+ + + + | 09/01/ | Office | Cardiology | FaustinaMonserrat | | | 2019 | Visit | | [address] | | | | | | [address] | | | | | | [place] [address] | | | | | | [phone] | | | | | | | [...] presents to the fluoroscopy suite for a [facility] | | fluoroscopically-guided left L5-S1 [...] + + | [facility] | [address] | [place] | [phone] | | [facility] | | [address] | | | - IMAGING | | [...]
--- OUTSIDE RECORDS SUMMARY | ~2020-08-10 | XMS | Encounter Summary ---
Demographics + + + | Address | [address] | | | [place] [address] | + + + | Home Phone [...] Team Providers + +------+ + | Care Cistern Room Working Supervisor Name | Role | Phone | [...] | | 2016 | Encounter | at [facility] [address] | [address] | havea problem with | | | | [facility] | [address] [place], | my heart. | | | | [facility], | [place] [address] | | | | | Building | [phone] | | | | | Floor [place], [place] | | | | | | [address] | | | | | | [phone] | | | +--------+ + + + [...] this encounter Miscellaneous Notes Telephone Encounter - Shila Zhong, Airam Arteaga - 10/03/2016 7:26 PM PSTI have personally reviewed her angiogram images from December and do not see any significant coronary artery disease. I do not feel that she has ischemic heart disease. I agree that some of her chest pain may be du e to her significant anxiety. She would benefit most from continued efforts at blood pressur e control, though I understand these have been limited by symptomatic hypotension. While I a m happy to see her again, it is very difficult to manage such a dynamic issue from so far aw ay and if she is able to follow with her PCP for blood pressure control that would be OK wit h me. documented in this encounter Plan of Treatment Not on filedocumented as of this encounter Visit Diagnoses Not on filedocumented in this encounter"
--- OUTSIDE RECORDS SUMMARY | ~2020-08-10 | XMS | Encounter Summary ---
Demographics + + + | Address | [address] | | | [place] [address] | + + + | Home Phone [...] Team Providers + +------+ + | Care Zipper Slide Attacher Name | Role | Phone | + +------+ + | Romy De La Paz MD | PCP | | + +------+ + Encounter Details +--------+ + + + + | Date | Type | Department | Care Team | Description | +--------+ + + + + | 07/17/ | Prep for | [facility] | Maykel Hutchins MD | Chronic low back | | 2019 | Procedure | [facility] | [address] | pain with sciatica, | | | | ORTHOPEDIC SPINE | [place] | sciatica laterality | | | | [address] | [address] | unspecified, | | | | [place], [place] | | unspecified back | | | | [address] | | pain laterality | | | | [phone] | | (Primary Dx); Right | | [...] [place] | | | | | | [address] | | | | | | | | +--------+---------+ + + + | 09/01/ | Office | Cardiology | Monserrat Weems | | | 2019 | Visit | | [address] | | | | | | [address] | | | | | | [place] [address] | | | | | | [phone] | | | | | | | [...]
--- OUTSIDE RECORDS SUMMARY | ~2020-08-10 | XMS | Encounter Summary ---
Demographics + + + | Address | [address] | | | [place] [address] | + + + | Home Phone [...] + + + + | 06/18/ | Orders Only | DLE | Denys Sibley, | Spinal stenosis of | | 2020 | | [facility] | DO [address] | lumbosacral region; | | | | DOLOROLOGY [address] | [place], [place] | Lumbar region | | | | [address] [address] | [address] | somatic dysfunction; | | | | [place], [place] | | Intractable back | | | | [address] | | pain; Degenerative | | | | [phone] | | lumbar spinal | | | [...] | | | | | | [place] | | | | | | [address] | | | | | | | | +--------+---------+ + + + | 09/01/ | Office | Cardiology | Monserrat Weems | | | 2019 | Visit | | [address] | | | | | | [address] | | | | | | [place] [address] | | | | | | [phone] | | | | | | | [...]
--- OUTSIDE RECORDS SUMMARY | ~2020-08-10 | XMS | Encounter Summary ---
Demographics + + + | Address | [address] | | | [place] [address] | + + + | Home Phone [...] Team Providers + +------+ + | Care Astronomy Teacher Name | Role | Phone | + +------+ + | Romy De La Paz MD | PCP | | + +------+ + Reason for Visit + + + | Reason | Comments | + + + | Back Pain | | + + + Evaluate & Treat (Routine) + + + + + + + | Status | Reason | Specialty | Diagnoses / | Referred By | Referred To | | | | | Procedures | Contact | Contact | + + + + + + + | Authorized | Specialty | Pain Medicine | Diagnoses | [place], | [place], | | | Services | | Intractable | Denys Wallis DO | Alfredo DO | | | Required | | back pain | [address] | | | | | Lumbar | [address] | [facility], | | | | | region | [facility], | [place] [address] | | | | | somatic | [place] [address] | Phone: | | | | | dysfunction | Phone: | [phone] | | | | | S/P | [phone] | Fax: | | | | | insertion of | Fax: | [phone] | | | | | spinal cord | [phone] | | | | | | stimulator | | | + + + + + + + Encounter Details +--------+---------+ + + + | Date | Type | Department | Care Team | Description | +--------+---------+ + + + | 04/15/ | Office | [facility] | Alfredo Casillas DO | Intractable back | | 2020 | Visit | [facility] | [address] | pain (Primary Dx); | | | | [address] | [place] [address] | Lumbar region | | | | [address] [place], | [phone] | somatic dysfunction; | | | | [place] [address] | | Foraminal stenosis | | | | [phone] | | of lumbar region - | [...] Temperature | 36.6 C (97.9 F) | 04/15/2020 9:06 AM | | | | | PDT [...] Height | 154.9 cm (5' 1") | 04/15/2020 9:06 AM | | | | | PDT | | + + + + + | Body Mass Index | - | - | | + + + + + documented in this encounter Progress Notes Alfredo Casillas DO - 04/15/2020 9:30 AM PDT [facility]: Interventional Pain Management 04/15/2020 Kori Mcintosh-Fawthrop 1945 Chief Complaint Patient presents with Back Pain HISTORY OF PRESENT ILLNESS Back Pain This is a chronic problem. The current episode started more than 1 year ago. The problem oc curs constantly. The problem has been gradually worsening since onset. The pain is present i n the lumbar spine and thoracic spine. The quality of the pain is described as aching and st abbing. The pain does not radiate. The pain is at a severity of 5/10. The pain is moderate. The symptoms are aggravated by standing and twisting. Associated symptoms include numbness a nd tingling. Pertinent negatives include no abdominal pain, chest pain, fever, headaches or weakness. She has tried home exercises [...] for environmental allergies and food allergies. Neurological: Positive for tingling and numbness. Negative for seizures, weakness, light-he adedness and headaches. Psychiatric/Behavioral: Negative for dysphoric mood and suicidal ideas. The patient is not nervous/anxious. Past Medical History: Diagnosis Date Acid reflux disease Acute renal failure (HCC) April 2013 Adverse effect of anesthesia hx hallucinations after anesthesia x 3 yrs ago. Anesthesia hallucinated after bladder repair Arthralgia Arthritis Asthma Asthma Back pain Cancer (HCC) 2004 breast Cataract Cerebrovascular accident (CVA) ([facility]) [...] Procedure: KYPHOPLASTY; Surgeon: Alfredo Casillas DO; Location: [facility] OR; Service: Pa in Management; Laterality: N/A; L5 FRACTURE SURGERY ANKLE HERNIA REPAIR HYSTERECTOMY HYSTERECTOMY LAMINECTOMY N/A 08/03/2019 Procedure: LAMINOTOMY THORACIC / LUMBAR W/ PLACEMENT SPINAL CORD STIMULATOR; Surgeon: Suly Hutchins MD; Location: [facility] OTHER [facility]GICAL [...] Inhale into the lungs. Yes Historical Provider, clonazePAM (KLONOPIN) 1 mg tablet Take 1-2 mg by mouth nightly as needed for Anxiety. Yes Historical Provider, fluticasone (FLONASE) 50 mcg/nasal spray USE 1 SPRAY(S) IN EACH NOSTRIL TWICE DAILY FOR 30 DAYS 04/14/20 Yes Historical Provider, HYDROcodone-acetaminophen (NORCO) 10-325 mg per tablet Take 1 tablet by mouth every 4 hours as needed for Pain for up to 30 days. 04/15/20 05/15/20 Yes Denys Sibley, DO levothyroxine (SYNTHROID) 100 mcg tablet Take 100 mcg by mouth every morning (before breakf ast). Yes Historical Provider, lidocaine-prilocaine (EMLA) cream Apply to affected area 2 or 3 times a day 04/15/20 04/15/21 Yes Denys Sibley, DO Loratadine 10 MG CAPS Take 10 mg by mouth Daily as needed. Yes Historical Provider, methocarbamol (ROBAXIN) 500 mg tablet Take 500 mg by mouth 4 (four) times daily. 04/15/20 Y es Denys Sibley, DO metoprolol succinate (TOPROL-XL) 25 mg 24 hr tablet Take 1 tablet by mouth Daily. 02/28/20 Yes Zuleyka Castillo DO naloxone (NARCAN) 4 mg/nasal spray 1 spray by Nasal route as needed for Decreased Responsiv eness (May repeat with second device into other nostril after 2 minutes). 06/18/19 Yes Denys Sibley DO pramipexole (MIRAPEX) 0.5 MG tablet TAKE 1 TABLET BY MOUTH EVERY DAY AT BEDTIME FOR 30 DAYS 04/14/20 Yes Historical Provider, rOPINIRole (REQUIP) 2 MG tablet Take 2 mg by mouth 4 times daily. 08/09/19 Yes Historical Provider, warfarin (COUMADIN) 5 mg [...] level: Not on file Occupational History Occupation: [employer] Social Needs Financial resource strain: Not on [...] file Gets together: Not on file Attends moravian service: Not on file Active member of [...] Not on file PHYSICAL EXAM Vital Signs: Temp 36.6 C (97.9 F) (Oral) | Ht 1.549 m (5' 1") | LMP (LMP Unknown) | BMI 21.73 kg /m Physical Exam Back Exam Tenderness The patient is experiencing tenderness in the lumbar. Other Gait: antalgic DATA No results found for this or any previous visit (from the past 360 hour(s)). PROBLEM LIST 1. Intractable back pain 2. Lumbar region somatic dysfunction 3. 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 Scoliosis of lumbar spine, unspecified scoliosis type 5. Chronic bilateral low back pain without sciatica 6. Spondylosis without myelopathy or radiculopathy, lumbosacral region ASSESSMENT & PLAN Mrs. Rubio is a 74-year-old female here complaining of lower back pain and her s timulator spinal cord was not given her the relief that it was before. She was in a swimmin g pool and felt a pop after that. She had loss of relief from the stimulation. Toner from [employer] was in attendance and we were able to reprogram her lead and cover her full coverage. We did get an x-ray that did show the lead moved down one segment as well as a new 25 per cent compression fracture at the T12. At this time, since she is getting good relief from t he stimulation, we will hold off on any further interventions. We did discuss the possibili ty of a kyphoplasty if her symptoms are not improving. We will send her to Dr. Tong if that does happen. Otherwise, we will hold off on any further intervention. She denies any loss of bowel or bladder function. Does agree with the plan and we do look forward to cont inue participating in her care. Plan, alternatives, risks [...] Paz MD follow up Alfredo Casillas DO 04/15/2020 This document has been prepared with [employer] voice recognition system. The possibility of "s ound alike" silicator errors, and additions, or deletions may occur. [...] | | | | | | [place] | | | | | | [address] | | | | | | | | +--------+---------+ + + + | 09/01/ | Office | Cardiology | Faustina Monserrat | | 2019 | Visit | | [address] | | | | | | [address] | | | | | | [place] [address] | | | | | | [phone] | | | | | | | | +--------+---------+ + + + documented as of this encounter Results XR Thoracolumbar Junction 2+ [...]
--- OUTSIDE RECORDS SUMMARY | ~2020-08-10 | XMS | Encounter Summary ---
Demographics + + + | Address | [address] | | | [place] [address] | + + + | Home Phone [...] Team Providers + +------+ + | Care Corporate Trust Officer Name | Role | Phone | [...] | | 2016 | Encounter | at [facility] [address] | [address] | [place] | | | | [facility] | [address] [place], | | | | | [facility] and He[facility], | [place] [address] | | | | | [facility] | [phone] | | | | | Floor [place], [place] | | | | | | [address] | | | | | | [phone] | | | +--------+ + + + [...]
--- OUTSIDE RECORDS SUMMARY | ~2020-08-10 | XMS | Clinical Summary ---
Demographics + + + | Address | [address] | | | [place] [address] | + + + | Home Phone [...] | | + + +---------+ + | Terrance Weinstein | ECON | Unknown | | + + +---------+ + Care Team Providers + +------+ + | Care Slurry Tank Tender Name | Role | Phone | [...] | e | | tablet | for Anxiety Usually | | | | | | | | takes qhs, has been | | | | | | | | on it 20 year. 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 | tablet | | 0/20 | | e | | (TOPROL-XL) 25 mg 24 | | | | 20 | | | | hr tablet | | | | | | | + + + +---------+------+------+-------+ +---+ + | | Additional | | | InformationPatient | | | taking differently: | | | 25 mg Oral NIGHTLY, | | | Reported on | | | 06/26/2020 1:37 PM | +---+ + + + + +----+------+------+-------+ | warfarin | Take 1 tablet by | 30 | 11 | 06/0 | 06/0 | Activ | | (COUMADIN) 5 mg | mouth Daily. | tablet | | 4/20 | 4/20 | e | | tablet | | | | 20 | 21 | | + + + +----+------+------+-------+ | pramipexole | 0.5 mg . | | 0 | 06/1 | | Activ | | (MIRAPEX) 0.5 MG | | | | 5/20 | | e | | tablet | | | | 20 | | | + + + +----+------+------+-------+ | fluticasone | USE 1 SPRAY(S) IN | | 0 | 03/31 | | Activ | | (FLONASE) 50 | EACH NOSTRIL TWICE | | | 03/19 | | e | | mcg/nasal spray | DAILY FOR 30 DAYS | | | 20 | | | + + + +----+------+------+-------+ | methocarbamol | Take 500 mg by [...] | | | | + + + +----+------+------+-------+ | | Apply to affected | 5800 [...] | | | | + + + +----+------+------+-------+ | alendronate | TAKE 1 TABLET BY | | 0 | 07/0 | | Activ | | (FOSAMAX) 70 mg | MOUTH ONCE A WEEK | | | 04/19 | | e | | tablet | | | | 20 | | | + + + +----+------+------+-------+ | rOPINIRole | Take 4 mg by mouth 2 | | 0 | 03/31 | | Activ | | (REQUIP) 4 mg tablet | times daily . | | | 07/20 | | e | | | | | | 20 | | | + + + +----+------+------+-------+ | Calcium | Take by mouth. | | 0 | | | Activ | | Carb-Cholecalciferol | | | | | | e | | (CALCIUM 600 + D | | | | | | | | PO) | | | | | | | + + + +----+------+------+-------+ | | Take 1 tablet by | 180 | 0 | 07/02 | 08/01 | Activ | | HYDROcodone-acetamin | mouth every 4 hours | tablet | | 11/19 | 11/19 | e | | ophen (NORCO) 10-325 [...] | | | | + + + +----+------+------+-------+ | | Take 1 tablet by | 180 | 0 | 05/31 | 07/02 | Disco | | HYDROcodone-acetamin | mouth every 4 hours | tablet | | 07/20 | /20 | ntinu | | ophen (NORCO) 10-325 [...] | | | | + + + +----+------+------+-------+ | methocarbamol | Take 1 tablet by | 90 | 0 | 05/31 | 07/02 | Disco | | (ROBAXIN) 500 mg | mouth every 6 hours | tablet | | 07/20 | 11/19 | ntinu | | tabletIndications: | as needed for up to | | | 20 | 20 | ed | | Spinal stenosis of | 30 days. | | | | | (Alte | | lumbosacral region, | | | | | | rnate | | S/P insertion of | | | | | | | | spinal cord | | | | | | thera | | stimulator, | | | | | | py) | | Encounter for | | | [...] | | | | + + + +----+------+------+-------+ Active Problems + + + | Problem | Noted Date | + + + | Paroxysmal atrial fibrillation | 06/26/2020 | + + + | Essential hypertension | 06/26/2020 | + + + | Mixed hyperlipidemia | 06/26/2020 | + + + | Diet-controlled diabetes mellitus | 06/26/2020 | + + + | History of transient ischemic attack (TIA) | 06/26/2020 | + + + | S/P insertion of spinal cord stimulator | 08/16/2019 | + + + | Spondylosis without myelopathy or radiculopathy, cervical region | 03/20/2019 | + + + + + | Overview: Added automatically from request for surgery [id number] | + + + + + | Spondylosis without myelopathy or radiculopathy, lumbosacral | 03/20/2019 | | region | | + + + + + | Overview: Added automatically from request for surgery [id number] | + + + + + | Chronic bilateral low back pain without sciatica | 03/20/2019 | + + + + + | Overview: Added automatically from request for surgery [id number] | + + + + + | Intervertebral disc disorders with radiculopathy, lumbosacral | 02/25/2019 | | region | | + + + + + | Overview: Added automatically from request for surgery [id number] | + + + + + | Chronic low back pain with sciatica | 02/25/2019 | + + + + + | Overview: Added automatically from request for surgery [id number] | + + + + + | Lumbar region somatic dysfunction | 02/25/2019 | + + + + + | Overview: Added automatically from request for surgery [id number] | + + + + + | Spinal stenosis of lumbosacral region | 02/25/2019 | + + + + + | Overview: Added automatically from request for surgery [id number] | + + + + + | [...] Overview: Added automatically from request for surgery [id number] | | Problem List Rehabilitation Therapy Aide Utility | + + + + + [...] | 12/19/2013 | + + + | PPS (pelvic pain syndrome) | 12/09/2013 | + + + | Recurrent UTI | 12/09/2013 | + + + | Gait difficulty | 11/19/2013 | + + + | History of oral aphthous ulcers | 11/19/2013 | + + + | Impaired mobility and ADLs | 11/19/2013 | + + + | COPD (chronic obstructive pulmonary disease) | 11/17/2013 | + + + | Hypothyroid | 11/17/2013 | + + + | Anemia, unspecified | 11/16/2013 | + + + | Overdose of muscle relaxant | 11/15/2013 | + + + | Chronic low back pain | 08/26/2013 | + + + | Facet arthritis of lumbar region | 08/26/2013 | + + + | Left lumbar radiculopathy | 11/01/2012 | + + + | ORGANIC INSOMNIA UNSPECIFIED | 08/31/2011 | + + + + + | Overview: ICD-10 Record update | + + + +---+ | SACROILIITIS | | + +---+ | BURSITIS, HIP | | + +---+ | BACK PAIN, LUMBAR | | + +---+ | OSTEOARTHRITIS, LUMBOSACRAL SPINE | | + +---+ | COUGH VARIANT ASTHMA | | + +---+ | Chronic diarrhea | | + +---+ + + | Overview: PLRU [id number] Decision | + + + +---+ | ESOPHAGEAL REFLUX | | + +---+ | GENERALIZED ANXIETY DISORDER | | + +---+ | RESTLESS LEG SYNDROME | | + +---+ | HYPOGLYCEMIA | | + +---+ | INSOMNIA DUE TO MENTAL DISORDER | | + +---+ + + | Overview: ICD-10 Record update | + + + +---+ | Depression, major, recurrent - with multiple prior suicide | | | attempts | | + +---+ | DDD (degenerative disc disease), lumbar | | + +---+ Resolved Problems + + + + | Problem | Noted | Resolved | | | Date | Date | + + + + | Strain of lumbar region | 02/26/20 | | | | 19 | 0 | + + + + + + | Overview: Added automatically from request for surgery [id number] | + + + + + + | Chest pain | 03/09/20 | | | | 16 | 0 | + + + + | Depression with suicidal ideation | 12/09/19 | | | | 14 | 0 | + + + + | Anxiety state | 11/19/19 | | | | 14 | 0 | + + + + | Aspiration pneumonia | 11/17/19 | | | | 14 | 0 | + + + + | Low back ache | 11/17/19 | | | | 14 | 0 | + + + + | Acute alcoholic intoxication | 11/15/19 | | | | 14 | 0 | + + + + | Acute respiratory failure | 11/15/19 | | | | 14 | 0 | + + + + | Coma | 11/15/19 | | | | 14 | 0 | + + + + | Hypotension, unspecified | 11/15/19 | | | | 14 | 0 | + + + + | Metabolic acidosis | 11/15/19 | | | | 14 | 0 | + + + + | Other shock | 11/15/19 | | | | 14 | 0 | + + + + | Acute renal failure | 08/16/20 | | | | 13 | 0 | + + + + | DISC DISEASE, LUMBAR | | | | | | 0 | + + + + | Gastroparesis | | | | | | 0 | + + + + | Nausea with vomiting | | | | | | 0 | + + + + | Lumbar strain | | | | | | 0 | + + + + Encounters +--------+ + + + + | Date | Type | Specialty | Care Team | Description | +--------+ + + + + | 08/08/ | Virtual | Pain Medicine | Alfredo Casillas DO | Spinal stenosis of | | 2019 | Office | | | lumbosacral region | | | Visit | | | (Primary Dx); | | | | | | Degenerative lumbar | | | | | | spinal stenosis; | | | | | | Scoliosis of lumbar | | | | | | spine, unspecified | | | | | | scoliosis type | +--------+ + + + + | 08/08/ | Telephone | Pain Medicine | Alfredo Casillas DO | Medical Clearance | | 2019 | | | | (warfarin ) | +--------+ + + + + | 07/21/ | Hospital | Radiology | Alfredo Casillas DO | Chronic pain | | 2019 | Encounter | | | disorder; Thoracic | | | | | | neuritis | +--------+ + + + + | 07/21/ | Hospital | Radiology | Alfredo Casillas DO | Spinal stenosis of | | 2019 | Encounter | | | lumbosacral region; | | | | | | Thoracic neuritis | +--------+ + + + + | 07/21/ | Office | Pain Medicine | Denys Sibley, | Spinal stenosis of | | 2020 | Visit | | DO | lumbosacral region | | | | | | (Primary Dx); S/P | | | | | | insertion of spinal | | | | | | cord stimulator; | | | | | | Degenerative [...] | | | | somatic dysfunction | +--------+ + + + + | 07/11/ | Orders Only | Pain Medicine | Motaghi, Alfredo, DO | Chronic pain | | 2020 | | | | disorder (Primary | | | | | | Dx); Spinal stenosis | | | | | | of lumbosacral | | | | | | region; Thoracic | | | | | | neuritis | +--------+ + + + + | 07/10/ | Telephone | Cardiology | Monserrat Weems | Lab Results | | 2019 | | | [facility] | | +--------+ + + + + | 07/08/ | Office | Pain Medicine | Alfredo Casillas DO | Spinal stenosis of | | 2019 | Visit | | | lumbosacral region | | | | | | (Primary Dx); Lumbar | | | | | | region somatic | | | | | | dysfunction; | | | | | | Degenerative lumbar | | | | | | spinal stenosis; | | | | | | Encounter for | | | | | | long-term use of | | | | | | opiate analgesic | +--------+ + + + + | 06/26/ | Office | Cardiology | Monserrat Weems | Paroxysmal atrial | 2019 | Visit | | GLYNN Alaniz | fibrillation (HCC) | | | | | | (Primary Dx); | | | | | | Essential | | | | | | hypertension; Mixed | | | | | | hyperlipidemia; | | | | | | Diet-controlled | | | | | | diabetes mellitus | | | | | | (HCC); | | | | | | Hypothyroidism, | | | | | | unspecified type; | | | | | | Chronic obstructive | | | | | | pulmonary disease, | | | | | | unspecified COPD | | | | | | type (HCC); History | | | | | | of transient | | | | | | ischemic attack | | | | | | (TIA); Screening for | | | | | | iron deficiency | | | | | | anemia; Palpitations | +--------+ + + + + | 06/18/ | Office | Pain Medicine | Denys Sibley, | Spinal stenosis of | | 2020 | Visit | | DO | lumbosacral region | | | | | | (Primary Dx); S/P | | | | | | [...] + | 06/18/ | Orders Only | Pain Medicine | Denys Sibley, | Spinal stenosis of | 2019 | | | DO | [...] Denys Sibley, | S/P insertion of | 2019 | Visit | | DO [...] disorder | +--------+ + + + + from [...] + + | Brother | | | [place] | | | | (Age | | [...] | 51.8 kg (114 lb 3.2 | 08/08/2020 9:55 AM | verbal | | | oz) | PDT | | + + + + + | Height | 154.9 cm (5' 1") | 08/08/2020 9:55 AM | | | | | PDT | | + + + + + | Body Mass Index | 21.58 | 08/08/2020 9:55 AM | | | | | PDT [...] | | | | | | [place] | | | | | | [id number] | | | | | | | | +--------+---------+ + + + | 09/01/ | Office | Cardiology | Monserrat Weems | | | 2019 | Visit | | GLYNN Alaniz [address] | | | | | [address] | | | | | | [place] [address] | | | | | | [phone] | | | | | | | [...] | + + + + + | Diabetic Eye Exam | | | | | | 5 | | | + + + + + | Diabetic Foot Exam | | | | | | 5 | | | + + [...] | + + + + + | Hemoglobin A1c | | 07/18/20 | | | Screening | 4 | 14 | | + + + + + | Colorectal Cancer | | 11/19/19 | | | Screening (FIT) | 5 | 14 | | + + + + + | Adult Annual | | | | | Wellness Visit | 5 | | | + + + + + | Microalbumin | | | | | Screening | 5 | | | + + [...] | 17, | | | | | 11/26/19 | | | | | 16, | | | | | Addition | [...] + | Vaccine: Influenza | Completed | 07/24/20 | | | | | 20 | | + + + + + [...] | | 03/04/ | [id number] | | [id number]: Qty: 1 | ogical | Spine | MEDICAL - | | 2020 | S | | on 08/03/2019 by Cuong, | | Lumbar | STJU | | | /[id number] | | MD Maykel at [facility] | Stimul | | | | | 444 | | [facility] | ator | | | | | /NA | + +--------+--------+ +--------+--------+--------+ | Autopax W/Vertaplex | | N/A: | YULIYA | | 06/30/ | [id number] | | HvImplanted: Qty: 1 on | | Back | MEDICAL - | | 2020 | 22-015 | | 06/13/2018 by Alfredo Casillas, | | | STRY | | | / | | DO | | | | | | /[id number] | | | | | | | | 2 | + +--------+--------+ +--------+--------+--------+ | Stim Nrv Lead Octrode 60cm - | | | [facility] | | 11/23/ | [id number] | | [id number]: Qty: 1 on | | | MEDICAL - | | 2020 | S | | 03/28/2019 by Sonja, | | | STJU | | | /[id number] | | DO Alfredo | | | | | | 330 / | + +--------+--------+ +--------+--------+--------+ | Proclaim 5 EliteImplanted: | | N/A: | [facility] | | 01/15/ | [id number] | | Qty: 1 on 08/03/2019 by Cuong | | Spine | MEDICAL - | | 2020 | /[id number] | | MD Maykel at [facility] | | Lumbar | STJU | | | 6.1 | | [facility] | | | | | | /NA | + +--------+--------+ +--------+--------+--------+ + + | Description:This is a | | proclaim 5 neurostimulator | | with penta lead. It is mri | | conditional when in mri mode. | | Pt to bring cobol programmer. | | What is Coronavirus?The Novel | | Coronavirus 2019 (COVID-19) | | is a new virus strain that is | | spread mainly from | | fzoblv-zo-qrnyka through | | respiratory droplets when an | | infected person coughs or | | sneezes. Symptoms may appear | | 2-14 days after exposure. | | Reported illnesses have | | ranged from mild symptoms to | | severe illness and for | | confirmed cases. Some | | people testing positive for | | COVID-19 have no symptoms at | | all (asymptomatic). The most | | common symptoms include: | | CoughShortness of breath or | | difficulty | | breathingFeverChillsMuscle | | painSore throatNew loss of | | taste or smell COVID-19 is | | most commonly spread from an | | infected person to others | | through: Between people who | | are in close contact with one | | another (within about 6 | | feet). Respiratory droplets | | produced by coughing and | | sneezing. These droplets can | | land in the mouths or nose of | | people who are nearby or | | possibly be inhaled into the | | lungs.Touching a surface with | | the virus on it and then | | touching your mouth, nose, or | | eyes before washing your | | hands. How to protect | | yourselfAvoid touching your | | eyes, nose and mouth with | | unwashed hands. Wash your | | hands often with soap and | | water for at least 20 | | seconds. This is especially | | important after blowing your | | nose, coughing, or sneezing; | | going to the bathroom; and | | before eating or preparing | | food.If soap and water are | | not available, use an | | alcohol-based hand gang bore operator | | with at least 60% alcohol | | covering all surfaces of your | | hands and rubbing them | | together until they feel | | dry.Cover your cough or | | sneeze with a tissue, then | | throw the tissue in the | | trash. (Putting a tissue on a | | table contaminates the | | surface of the table with | | germs.)Routinely disinfect | | frequently touched objects | | and surfaces, using a | | cleaning spray or wipe.Avoid | | travel to high-risk | | countries. Non-essential | | travel to or through any of | | the countries for which the | | CDC has issued a level 2 or 3 | | travel health notice is | | discouraged. | | https://www.cdc.gov/coronavir | | us/2019-ncov/travelers/index. | | htmlStay at least 6 feet away | | from others when in public | | places, do not gather in | | groups, stay out of crowded | | places, and avoid mass | | gatherings to slow the spread | | of the virus. Use of a | | simple cloth face covering to | | slow the spread of the virus | | in public settings where | | it's hard to stay away from | | others, such as in grocery | | stores, pharmacies, and other | | areas where the virus might | | easily spread. Cloth masks | | do not protect the wearer but | | instead hold in droplets | | from sneezing or coughing to | | prevent spreading to other | | people and surfaces. Cloth | | face coverings fashioned from | | household items or made at | | home from common materials at | | low cost can be used. It is | | not recommended to use | | surgical masks or N-95 | | respirators. A few | | definitions that you should | | be familiar with regarding | | COVID-19:Quarantine is used | | to keep someone who might | | have been exposed to COVID-19 | | away from others. Isolation | | is used to separate people | | infected with the virus | | (those who are sick from | | COVID-19 and those with no | | symptoms) from people who are | | not infected.Both quarantine | | and isolation are similar | | that they:involve separation | | of people to protect the | | publichelp limit further | | spread of COVID-19can be done | | voluntarily or be required | | by health authorities What | | to do if you are sick?If you | | have a fever and cough, you | | may have COVID-19. Notify | | your medical provider.Stay | | home except to get medical | | care (see for Home | | Isolation)Monitor your | | symptoms When you should | | seek medical evaluation and | | advice?Call 911 if you have a | | medical emergency such as | | trouble breathing, persistent | | pain or pressure in the | | chest, and/or bluish lips or | | face. If you have a medical | | emergency and need to call | | 911, notify the canceling machine operator that | | you have or think you might | | have, COVID-19. If possible, | | put on a facemask before | | medical help arrives.If you | | are 65 and older, or have | | underlying conditions such as | | , heart disease, | | diabetes, lung disease and | | weakened immune system, work | | with your doctor to develop a | | plan to determine your | | health risks to COVID-19 and | | how to manage symptoms. If | | you do have symptoms, contact | | your doctor immediately.For | | worsening symptoms or | | difficulty breathing, please | | contact your primary care | | provider or consider a | | virtual visit.If you do not | | have a high-risk condition | | and your symptoms are mild, | | you do not need to be | | evaluated in person and do | | not need to be tested for | | COVID-19. (Please see Home | | Quarantine and Isolation | | Instructions below)We ask | | that you please avoid coming | | to the emergency department, | | unless you have a health | | emergency and/or you have | | been advised by a provider to | | do so. This helps prevent | | the risk of spreading this | | disease and further exposure | | in our community and allows | | us to dedicate critical and | | limited emergency resources | | to those who are very | | sick. Who should be tested? | | A common question right now | | is, | | | | Why can't I get tested? | | The answer: Not everyone | | needs to be tested. Given | | the short supply of testing | | supplies and protective | | equipment for our health care | | workers, the CDC recommends | | that people who are | | hospitalized, healthcare | | worker who have COVID-19 | | symptoms, residents in | | nursing facilities or senior | | living communities or home | | health, or those who are high | | risk (older adults, chronic | | diseases, immunosuppressed) | | should be prioritized for | | testing. These | | recommendations may evolve to | | include more people over | | time, as this situation is | | evolving rapidly. It is not | | recommended to test | | individuals who do not have | | COVID-19 symptoms. What to | | do if you think you have been | | exposed to COVID-19?If you | | feel healthy but recently had | | close contact with a person | | known to have COVID-19, you | | need to self-quarantine. | | Follow the self-quarantine | | instructions listed below: | | Check your temperature twice | | a dayStay home for 14 days | | from the time of exposure and | | self-monitor for fever, | | cough, and shortness of | | breath.Contact your medical | | provider if your temperature | | is greater than 100.4 and you | | develop cough or shortness | | of breath.If possible, stay | | away from people who are | | high-risk for getting very | | sick from COVID-19. Does | | this mean my family or other | | people I live with need to | | self-quarantine?Other members | | of the household are not | | required to self-quarantine, | | unless they have been told by | | a medical professional to do | | so. If you develop symptoms | | and are suspected to have | | COVID-19, members of the | | household will be classified | | as close contacts and will | | then need to be in | | self-quarantine. Please speak | | to your health care provider | | and/or health department for | | further instructions.What | | are the guidelines for home | | quarantine and home | | isolation? Restrict | | activities outside your home, | | except for seeking medical | | care.Do not go to work, | | another person's home, school | | or public areas.Do not use | | public transportation.Cover | | coughs and sneezes.Avoid | | close contact with household | | members. When this is not | | possible, stay at least 6 | | feet from other people and | | wear a cloth face covering. | | During the COVD-19 pandemic, | | medical-grade masks are | | reserved for healthcare | | workers.Use separate sleeping | | and bathroom/bathing | | facilities, if feasible.Wash | | your hands often with soap | | and water for at least 20 | | seconds. This is especially | | important after blowing your | | nose, coughing, or sneezing; | | going to the bathroom; and | | before eating or preparing | | your food.Use hand gang bore operator | | if soap and water are not | | available. Use an | | alcohol-based hand gang bore operator | | with at least 60% alcohol, | | covering all surfaces of your | | hands and rubbing them | | together until they feel dry | | Cover your mouth and nose | | with a tissue when you cough | | or sneeze. Throw away used | | tissues in a lined trash can. | | Wash your hands afterwards. | | Clean and disinfect | | high-touch surfaces in your | | | | | | sick room | | and bathroom with a | | household disinfectant. | | High-touch surfaces include | | phones, remote controls, | | counters, doorknobs, | | tabletops, bathroom fixtures, | | toilets, keyboards, and | | bedside tables. Let someone | | else clean and disinfect | | surfaces in common areas, but | | not your bedroom and | | bathroom.Avoid sharing | | personal household items | | (dishes, drinking glasses, | | cups, eating utensils, | | towels, or bedding) with | | other people or pets in your | | home. After using these | | items, they should be washed | | thoroughly with soap and | | water or in the | | molding technician/washer.Call ahead | | before visiting your doctor. | | This will help the healthcare | | provider's office take steps | | to keep other people from | | getting infected or | | exposed.If you have been | | tested for COVID-19, stay | | home until your healthcare | | provider contacts you about | | your test results.When should | | I discontinue | | self-quarantine? If you have | | tested positive for COVID-19, | | you can leave home after | | these three things have | | happened:At least 3 days (72 | | hours) have passed since | | resolution of fever | | (temperature less than 100.0F | | or 37.8C) without the use of | | fever-reducing medications | | (e.g. Tylenol, | | Ibuprofen)ANDAt least 3 days | | of improvement in respiratory | | symptoms (e.g. cough, | | shortness of breath) ANDAt | | least 10 days have passed | | since symptoms first | | appearedIf you have tested | | positive for COVID-19 and are | | retested, you can leave home | | after these three things | | have happened:Resolution of | | fever (temperature less than | | 100.0F or 37.8C) without the | | use of fever-reducing | | medications (e.g. Tylenol, | | Ibuprofen)ANDImprovement in | | respiratory symptoms (e.g. | | cough, shortness of breath) | | ANDNegative test results of | | COVID-19 from at least two | | consecutive samples collected | | 24 hrs or more apartIf you | | are waiting for COVID-19 test | | results or you are | | symptomatic but did not | | require testing, you can | | leave home after the | | following things have | | happened:At least 3 days (72 | | hours) have passed since | | resolution of fever | | (temperature less than 100.0F | | or 37.8C) without the use of | | fever-reducing medications | | (e.g. Tylenol, Ibuprofen) and | | at least 3 days of | | improvement in respiratory | | symptoms (e.g., cough, | | shortness of breath), and at | | least 10 days have passed | | since symptoms first | | appeared.ORTwo negative test | | results received and at least | | 24 hours have passed since | | resolution of fever | | (temperature less than 100.0F | | or 37.8C) without the use of | | fever-reducing medications | | (e.g. Tylenol, Ibuprofen). 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 .1W/kg | | due to penta lead. | + + Procedures + +--------+ + + + | Procedure Name | Priori | Date/Time | Associated Diagnosis | Comments | | | ty | | | | + +--------+ + + + | MRI THORACIC SPINE | Routin | 07/21/2020 | Chronic pain | Results for this | | WO CONTRAST | e | 1:17 PM | disorder Thoracic | procedure are in the | | | | PDT | neuritis | results section. | + +--------+ + + + | MRI LUMBAR SPINE WO | Routin | 07/21/2020 | Spinal stenosis of | Results for this | | CONTRAST | e | 11:59 AM | lumbosacral region | procedure are in the | | | | PDT | Thoracic neuritis | results section. | + +--------+ + + + | LABS - EXTERNAL SCAN | | 2020 | | Results for this | | | | 12:00 AM | | procedure are in the | | | | PDT | | results section. | + +--------+ + + + | IMAGING REPORT - | | 06/08/2020 | | Results for this | | EXTERNAL SCAN | | 12:00 AM | | procedure are in the | | | | PDT | | results section. | + +--------+ + + + from Last 3 Months Results MRI Thoracic Spine wo Contrast (07/21/2020 1:17 PM PDT) + + | Specimen | + + | | + + + + + | Impressions | Performed At | + + + | 1. Spinal cord stimulator electrode array seen in the posterior | [facility] | | aspect of the canal at the T8 level. 2. Thoracic S-shaped scoliosis | | | with dextroconvexity in the midthoracic region and levoconvexity in | | | the upper lumbar region. Increased thoracic kyphosis noted. These | | | findings appear stable from the previous exams. 3. Small central | | | disc protrusion at T7-8 abuts and minimally indents the anterior cord | | | without causing cord signal change. 4. Spinal canal and neural | | | foramina are otherwise patent in the thoracic region. | | | Final Report Signed by: River Andersen Edward Sign Date/Time: | | | 07/25/2020 1:47 PM | | + + + + + + | Narrative | Performed At | + + + | MRI THORACIC SPINE WITHOUT CONTRAST CLINICAL INFORMATION: | [facility] | | Mid-back pain. COMPARISON: XR THORACOLUMBAR JUNCTION 2+ VIEWS | | | (04/15/2020); MRI THORACIC SPINE WO CONTRAST (07/17/2014); | | | PROCEDURE: Sagittal T2, sagittal T2 repeat, axial T2, sagittal T1, | | | sagittal STIR sequences. FINDINGS: Alignment: An S shaped | | | thoracolumbar scoliosis is seen with dextroconvexity in the | | | midthoracic region and levoconvexity in the upper lumbar region | | | similar in comparison to the previous exams. There is increased | | | thoracic kyphosis noted. Vertebrae and vertebral marrow signal: | | | Normal. No acute or chronic fractures are identified. Thoracic | | | cord: The thoracic spinal cord is normal in signal intensity and | | | morphology terminating in a normal appearing conus medullaris at the | | | mid L1 level. Surgical changes: Spinal cord stimulator leads are | | | seen entering the posterior spinal canal at the T10 level. The | | | electrode array is seen in the posterior aspect of the canal at the | | | T8 level., see image 3 series 7. Thoracic disc levels: The | | | thoracic discs show mild spondylosis in the midthoracic region with | | | minimal disc space narrowing noted from T6-7 through T10-11. A | | | small posterior disc protrusion abuts the anterior cord at T7-8 | | | causing minimal indentation. The posterior contours of the discs | | | are otherwise normal. The neural foramina are patent at all | | | observed levels in the thoracic region. Paraspinal musculature and | | | paravertebral soft tissues: Normal. | | + + + + + | Procedure Note | + + | Junior, [id number] - 07/25/2020 1:50 PM PDT | | MRI THORACIC SPINE WITHOUT CONTRAST | | | | CLINICAL INFORMATION: | | Mid-back pain. | | | | COMPARISON: | | XR THORACOLUMBAR JUNCTION 2+ VIEWS (04/15/2020); MRI THORACIC SPINE WO | | CONTRAST (07/17/2014); | | | | PROCEDURE: | | Sagittal T2, sagittal T2 repeat, axial T2, sagittal T1, sagittal STIR | | sequences. | | | | FINDINGS: | | Alignment: An S shaped thoracolumbar scoliosis is seen with | | dextroconvexity in the midthoracic region and levoconvexity in the | | upper lumbar region similar in comparison to the previous exams. There | | is increased thoracic kyphosis noted. | | | | Vertebrae and vertebral marrow signal: Normal. No acute or chronic | | fractures are identified. | | | | Thoracic cord: The thoracic spinal cord is normal in signal intensity | | and morphology terminating in a normal appearing conus medullaris at | | the mid L1 level. | | | | Surgical changes: Spinal cord stimulator leads are seen entering the | | posterior spinal canal at the T10 level. The electrode array is seen | | in the posterior aspect of the canal at the T8 level., see image 3 | | series 7. | | | | Thoracic disc levels: The thoracic discs show mild spondylosis in the | | midthoracic region with minimal disc space narrowing noted from T6-7 | | through T10-11. A small posterior disc protrusion abuts the anterior | | cord at T7-8 causing minimal indentation. The posterior contours of | | the discs are otherwise normal. The neural foramina are patent at all | | observed levels in the thoracic region. | | | | Paraspinal musculature and paravertebral soft tissues: Normal. | | | | IMPRESSION: | | 1. Spinal cord stimulator electrode array seen in the posterior aspect | | of the canal at the T8 level. | | 2. Thoracic S-shaped scoliosis with dextroconvexity in the midthoracic | | region and levoconvexity in the upper lumbar region. Increased | | thoracic kyphosis noted. These findings appear stable from the | | previous exams. | | 3. Small central disc protrusion at T7-8 abuts and minimally indents | | the anterior cord without causing cord signal change. | | 4. Spinal canal and neural foramina are otherwise patent in the | | thoracic region. | | | | | | | | | | Final Report Signed by: River Andersen Edward | | Sign Date/Time: 07/25/2020 1:47 PM | + + + +---------+ + + | Performing | Address | City[facility] | Phone Number | | Organization | | | | + +---------+ + + | [facility] | | | | + +---------+ + + MRI Lumbar Spine wo Contrast (07/21/2020 11:59 AM PDT) + + | Specimen | + + | | + + + + + | Impressions | Performed At | + + + | 1. Moderate spinal canal stenosis at L4-L5. 2. Left scoliotic | [facility] | | curvature of the lumbar spine centered at L2-L3. 3. Lateral recess | | | narrowing at L4-L5 in position to impinge the traversing bilateral L5 | | | nerve roots. 4. Lateral recess narrowing of right L3-L4 in position | | | to irritate the traversing right L4 nerve root. 5. Other findings as | | | described. Final Report Signed by: Shady Wesley, Contreras | | | Sign Date/Time: 07/21/2020 12:34 PM | | + + + + + + | Narrative | Performed At | + + + | MRI LUMBAR SPINE WITHOUT CONTRAST CLINICAL INFORMATION: Back | [facility] | | pain and radiculopathy for greater than six weeks. COMPARISON: | | | 10/19/2018 PROCEDURE: Sagittal T2, axial T2, sagittal T1, axial | | | T1, sagittal STIR sequences. FINDINGS: c LUMBAR SPINE: | | | Leftward scoliotic curvature of the lumbar spine centered at L2-L3. | | | Conus and imaged portions of the caudal cord: The conus ends at L1. | | | No abnormal signal of the terminal spinal cord. Lumbar disc | | | levels: T10-T11: No spinal canal stenosis. No neural foraminal | | | stenosis. T11-T12: No spinal canal stenosis or neural foraminal | | | stenosis. T12-L1: Mild disc height loss. Mild posterior disc | | | protrusion. No spinal canal stenosis. No neural foraminal | | | stenosis. L1-2: Intervertebral disc height is preserved. No | | | spinal canal stenosis. Mild right neural foraminal narrowing. | | | Left neural foramen is open. Mild facet joint arthropathy | | | L2-3: Intervertebral disc mild degeneration. No spinal canal | | | stenosis. No neural foraminal stenosis. Facet joints are normal. | | | L3-4: Intervertebral disc degeneration. Intervertebral disc | | | height loss. Broad-based posterior disc protrusion. Right lateral | | | recess narrowing may irritate the traversing right L4 nerve root. | | | Mild facet joint arthropathy. Mild spinal canal narrowing. Mild | | | right neural foraminal narrowing. Left neural foramen is open. | | | Schmorl's node of the superior endplate of L4. Degenerative | | | endplate edema. L4-5: Intervertebral disc degeneration. | | | Broad-based posterior disc bulge. Moderate spinal canal stenosis. | | | Lateral recess narrowing in position to irritate/impinge the | | | traversing bilateral L5 nerve roots. Moderate facet joint | | | arthropathy. Left neural foramen is open. Mild right neural | | | foraminal narrowing. L5-S1: Intervertebral disc degeneration. | | | Intervertebral disc height loss. No spinal canal stenosis. Mild | | | left neural foraminal narrowing. Right neural foramen is open. | | | Moderate left facet joint arthropathy. Mild right facet joint | | | arthropathy. Degenerative endplate edema. | | + + + + + | Procedure Note | + + | Junior, [id number] - 07/21/2020 12:37 PM PDT | | MRI LUMBAR SPINE WITHOUT CONTRAST | | | | CLINICAL INFORMATION: | | Back pain and radiculopathy for greater than six weeks. | | | | COMPARISON: | | 10/19/2018 | | | | PROCEDURE: | | Sagittal T2, axial T2, sagittal T1, axial T1, sagittal STIR sequences. | | | | FINDINGS: | | c | | LUMBAR SPINE: | | | | Leftward scoliotic curvature of the lumbar spine centered at L2-L3. | | | | Conus and imaged portions of the caudal cord: The conus ends at L1. No | | abnormal signal of the terminal spinal cord. | | | | Lumbar disc levels: | | T10-T11: No spinal canal stenosis. No neural foraminal stenosis. | | | | T11-T12: No spinal canal stenosis or neural foraminal stenosis. | | | | T12-L1: Mild disc height loss. Mild posterior disc protrusion. No | | spinal canal stenosis. No neural foraminal stenosis. | | | | L1-2: Intervertebral disc height is preserved. No spinal canal | | stenosis. Mild right neural foraminal narrowing. Left neural foramen | | is open. Mild facet joint arthropathy | | | | L2-3: Intervertebral disc mild degeneration. No spinal canal | | stenosis. No neural foraminal stenosis. Facet joints are normal. | | | | L3-4: Intervertebral disc degeneration. Intervertebral disc height | | loss. Broad-based posterior disc protrusion. Right lateral recess | | narrowing may irritate the traversing right L4 nerve root. Mild facet | | joint arthropathy. Mild spinal canal narrowing. Mild right neural | | foraminal narrowing. Left neural foramen is open. Schmorl's node of | | the superior endplate of L4. Degenerative endplate edema. | | | | L4-5: Intervertebral disc degeneration. Broad-based posterior disc | | bulge. Moderate spinal canal stenosis. Lateral recess narrowing in | | position to irritate/impinge the traversing bilateral L5 nerve roots. | | Moderate facet joint arthropathy. Left neural foramen is open. Mild | | right neural foraminal narrowing. | | | | L5-S1: Intervertebral disc degeneration. Intervertebral disc height | | loss. No spinal canal stenosis. Mild left neural foraminal narrowing. | | Right neural foramen is open. Moderate left facet joint arthropathy. | | Mild right facet joint arthropathy. Degenerative endplate edema. | | | | IMPRESSION: | | 1. Moderate spinal canal stenosis at L4-L5. | | 2. Left scoliotic curvature of the lumbar spine centered at L2-L3. | | 3. Lateral recess narrowing at L4-L5 in position to impinge the | | traversing bilateral L5 nerve roots. | | 4. Lateral recess narrowing of right L3-L4 in position to irritate the | | traversing right L4 nerve root. | | 5. Other findings as described. | | | | | | | | | | Final Report Signed by: Shady Wesley Isaac | | Sign Date/Time: 07/21/2020 12:34 PM | + + + +---------+ + + | Performing | Address | City/State[facility] | Phone Number | | Organization | | | | + +---------+ + + | [facility] | | | | + +---------+ + + LABS - EXTERNAL SCAN (2020 12:00 AM PDT) + + + | Narrative | Performed At | + + + | Ordered by an | | | unspecified provider. | | + + + IMAGING REPORT - EXTERNAL SCAN (06/08/2020 12:00 AM PDT) + + + | [...] +---------+--------+ | INDIVIDUAL ASSURANCE | INDIVI | [id number] | | | | Indemn | | [...] +--------+ +---------+--------+ | MEDICARE | MEDICA | [id number] | | [phone] | | Medica | | | RE | | 991-Pr | 5 | | re | | | PART A | | esent | | | | | | AND B | | | | | | + +--------+ +--------+ +---------+--------+ | MEDICARE | MEDICA | [id number] | | [phone] | | Medica | | | RE | | 991-Pr | 5 | | re | | | PART A | | esent | | | | | | AND B | | | | | | + +--------+ +--------+ +---------+--------+ | MEDICARE | MEDICA | [id number] | | [phone] | | Medica | | | RE | | 991-Pr | 5 | | re | | | PART A | | esent | | | | | | AND B | | | | | | + +--------+ +--------+ +---------+--------+ | MEDICARE | MEDICA | [id number] | | [phone] | | Medica | | | RE | | 991-Pr | 5 | | re | | | PART A | | esent | | | | | | AND B | | | | | | + +--------+ +--------+ +---------+--------+ | INDIVIDUAL ASSURANCE | INDIVI | [id number] | | | | Indemn | | [...] +---------+--------+ | INDIVIDUAL ASSURANCE | INDIVI | [id number] | | | | Indemn | | [...] +---------+--------+ | INDIVIDUAL ASSURANCE | INDIVI | [id number] | | | | Indemn | | [...] antonio/Benji | | 1945 | [phone] | [place] | | | jose | | | 8 (Home) | [phone] | + +--------+ +--------+ + + | Tyrese Rubio | Person | Self | [birth year] | [address] | | mandeep Harshal | al/Fam | | 1945 | [phone] | [place], [place] | | | jose | | | 8 (Home) | [phone] | + +--------+ +--------+ + + | Tyrese Rubio | Person | Self | [birth year] | [address] | | mandeep Harshal | al/Fam | | 1945 | [phone] | [place] [address] | | | jose | | | 8 (Home) | | + +--------+ +--------+ + + | Tyrese Rubio | Person | Self | [birth year] | [address] | | mandeep Harshal | al/Fam | | 1945 | [phone] | [place], [place] | | | jose | | | 8 (Home) | [phone] | + +--------+ +--------+ + + Advance Directives + + + + + | Type | Date Recorded | Patient | Explanation | | | | Inspector Precision Assembly | | + + + + + | Power of | 06/18/2020 11:14 | | POA - TERRANCE | | Airport Baggage Screener | AM | | | + + + + [...]
--- OUTSIDE RECORDS SUMMARY | ~2020-08-10 | XMS | Encounter Summary ---
Demographics + + + | Address | [address] | | | [place] [address] | + + + | Home Phone [...] Providers + +------+ + | Care Metal Washing Machine Operator Name | Role | Phone [...] | | spinal | [address] | [place], [place] | | | | | stenosis | [place], [place] | [address] | | | | | | [address] | Phone: | | | | | | Phone: | [phone] | | | | | | [phone] | Fax: | | | | | | Fax: | [phone] | | | | | | [phone] | | +--------+--------+ + + + + Encounter Details +--------+---------+ + + + | Date | Type | Department | Care Team | Description | +--------+---------+ + + + | 08/16/ | Office | [facility] | Denys Sibley, | S/P insertion of | | 2019 | Visit | [facility] | DO [address] | spinal cord | | | | [address] | [place], [place] | stimulator (Primary | | | | [address] | [address] | Dx); Spinal stenosis | | | | [place], [place] | | of lumbosacral | | | | [address] | | region; Intractable | | | | [phone] | | back pain; Encounter | | [...] anterior chest wall every 72 hours, and [place] 7.5/325 1 p.o. every 6 hours as [...] Screen 08/03/2019 NEGATIVE Final BB BAND 08/03/2019 [id number] Final BB BAND 08/03/2019 Testing performed at [facility];[address] [place] [address];[place] [address] Final Glucose, POC 08/03/2019 77 65 - [...] Final Antibody Screen 07/18/2019 Testing performed at [facility];[address] [place] [address];[place] [address] Final SOURCE: 07/18/2019 NARES(NOSE) Final Result 07/18/2019 [...] physical therapy, mass age therapy, acupuncture, care aid, along with recommended psychological counseling , either privately, or in group sessions offered by private care individuals, community serv ices, or anabaptist organizations. Appropriate referrals were made [...] every 72 hours con tinue with the [place] 10/325 1 p.o. every 6 hours as needed breakthrough pain and Robaxin 500 mg every 6 hours as needed muscle spasms Patient understands and is in full agreement with the above plan, Will return to office in 4 weeks, [facility] was consulted and appears appropriate, [...] dysfunction are noted in men and women. [facility] men will suffer erectile dysfunction with [...] and complications with the passage of time. half-way use is also associated with depressions, and [...] | | | | | | [place] | | | | | | [address] | | | | | | | | +--------+---------+ + + + | 09/01/ | Office | Cardiology | Monserrat Weems | | | 2019 | Visit | | [address] | | | | | | [address] | | | | | | [place] [address] | | | | | | [phone] | | | | | | | [...]
--- OUTSIDE RECORDS SUMMARY | ~2020-08-10 | XMS | Encounter Summary ---
Demographics + + + | Address | [address] | | | [place] [address] | + + + | Home Phone [...] Providers + +------+ + | Care Master Rigger Name | Role | Phone | + [...] + + | 01/13/ | Office | [facility] | Denys Sibley, | S/P insertion of | | 2019 | Visit | [facility] | DO [address] | spinal cord | | | | [address] | [place], [place] | stimulator (Primary | | | | [address] | [address] | Dx); Spinal stenosis | | | | [place], [place] | | of lumbosacral | | | | [address] | | region; Lumbar | | | | [phone] | | region somatic | | | [...] 8 hours as needed muscle spasms and [place] 10/325 1 p.o. every 4 hours PRN breakthrough pain Kori Mcintosh-Fawthrop presents for chronic pain evaluation and management. [...] but not limited to physical therapy, manager primary care, acupuncture, massage therapy, and nutritional healt h [...] Author Status Filed Medication Agreement Rupa Nye, It Program Auditor Active 11/14/2019 1:49 PM Pain Contract- Dr. Sibley 11/14/2019 PEG Pain screening tool (Pain, enjoyment, general activity) Total score: (Printable questionnaires in Nauruan ) Interpretation of Total Score: PEG scores are used to track changes over time. It should de crease after therapy has begun. Last 4 PEG Scores: No flowsheet data found. Opioid Risk Tool (ORT): Total Score Pulse: 79 BP: 107/62 (From Chronic Pain tab; printable questionnaires in Nauruan) Interpretation of Total Score: 0 to 3 [...] Procedure: KYPHOPLASTY; Surgeon: Alfredo Casillas DO; Location: [facility]; Service: Pa in Management; [...] 500 mg 4 times a day, and [place] 10/325 1 p.o. q. 4-5 chet es [...] reviewed, listed controlled substances are consistent with [facility] prescriptions and patient reported [...] = high risk) Daily Opioid Dose = [place] 10/325 1 p.o. every 4 hours as [...] to physical therapy, massage therapy, acupuncture, manager primary care, along with niki mmended psychological counseling, either privately, or in group sessions offered by private care individuals, community services, or jainism organizations. Appropriate referrals were made at patient [...] and complications with the passage of time. FPC use is also associated with depressions, and [...] and coordination of care with other health care provider and monitoring labs results, other test results and imagin g including [facility] and/or [facility] prescription monitoring systems. This document has been created using [employer] Recognition software and [employer]. The entry has been reviewed for content and accuracy, but there may still exist "sound alike" hot tamale man word errors and/or unintended additions and deletions. [...] [place] | | | | | | [address] | | | | | | | | +--------+---------+ + + + | 09/01/ | Office | Cardiology | Monserrat Weems | | | 2019 | Visit | | [address] | | | | | | [address] | | | | | | [place] [address] | | | | | | [phone] | | | | | | | [...] neuritis or radiculitis nos | + + documented in this encounter
--- OUTSIDE RECORDS SUMMARY | ~2020-08-10 | XMS | Encounter Summary ---
Demographics + + + | Address | [address] | | | [place] [address] | + + + | Home Phone [...] Team Providers + +------+ + | Care Orderly Name | Role | Phone | + [...] + + | 05/01/ | Office | [facility] | Shay Dietz | BACK PAIN, LUMBAR | | 2012 | Visit | [address]ATRY [address] | [address] | (Primary Dx); DISC | | | | [address] | [address] [place] | DISEASE, LUMBAR; | | | | [place] | [address] | OSTEOARTHRITIS, | | | | [address] | | LUMBOSACRAL SPINE | | | | [phone] | | | +--------+---------+ + + + [...] off ice. Please also provide a driver messenger to take you home on the day [...] a letter to the caregivers at the [facility] to allow them to give her a slightly increased dose of the narcotic until the injection starts working. documented in this encounter Plan of Treatment +--------+---------+ + + + | Date | Type | Specialty | Care Team | Description | +--------+---------+ + + + | 08/20/ | Office | Pain Medicine | BelenDenys mo, | | | 2019 | Visit | | DO [address] | | | | | | [place] | | | | | | [address] | | | | | | | | +--------+---------+ + + + | 09/01/ | Office | Cardiology | Monserrat Weems | | | 2019 | Visit | | [address] | | | | | | [address] | | | | | | [place] [address] | | | | | | [phone] | | | | | | | [...]
--- OUTSIDE RECORDS SUMMARY | ~2020-08-10 | XMS | Encounter Summary ---
Demographics + + + | Address | [address] | | | [place] [address] | + + + | Home Phone | | + + + | Preferred Language | Unknown | + + + | Marital Status | Single | + + + | Jew Affiliation | NON | + + + [...] Team Providers + +------+ + | Care English Language Arts Teacher Name | Role | Phone | [...] for | | 2016 | | at [facility] [address] | [address] | new pt appt) | | | | Brittany [place] for | [address] [place], | | | | | [facility] He[facility], | [place] [address] | | | | | [facility] | [phone] | | | | | Floor [place], [place] | | | | | | [address] | | | | | | [phone] | | | +--------+ + + + [...]
--- OUTSIDE RECORDS SUMMARY | ~2020-08-10 | XMS | Encounter Summary ---
Demographics + + + | Address | [address] | | | [place] [address] | + + + | Home Phone [...] Team Providers + +------+ + | Care Sketch Maker Name | Role | Phone | + +------+ + | Concepción Gallardo NP | PCP | | + +------+ + Reason for Visit +--------+--------+ + | Reason | Onset | Comments | | | Date | | +--------+--------+ + | Letter | 12/24/ | | | | 2014 | | +--------+--------+ + Encounter Details +--------+ + + + + | Date | Type | Department | Care Team | Description | +--------+ + + + + | 12/24/ | Telephone | [facility] [place] | Sj Valdes MD | Letter | | 2014 | | NEUROSURGERY [address] | [address] | | | | | [address] [facility] [address] | [place] [address] | | | | | [place] | [phone] | | | | | [address] | | | | | | [phone] | | | +--------+ + + + [...] Notes Telephone Encounter - Cindy Shaikh - 12/24/2014 3:47 PM PSTTermination of care andrés barakat sent via Certified mail# [phone]. documented in this encounter Plan of Treatment +--------+---------+ + + + | Date | Type | Specialty | Care Team | Description | +--------+---------+ + + + | 08/20/ | Office | Pain Medicine | Denys Sibley, | | | 2019 | Visit | | [address] | | | | | | [place] | | | | | | [address] | | | | | | | | +--------+---------+ + + + | 09/01/ | Office | Cardiology | Monserrat Weems | | | 2019 | Visit | | [address] | | | | | | [address] | | | | | | [place] [address] | | | | | | [phone] | | | | | | | | +--------+---------+ + + + documented as of this encounter Visit Diagnoses Not on filedocumented in this encounter"
--- OUTSIDE RECORDS SUMMARY | ~2020-08-10 | XMS | Encounter Summary ---
Demographics + + + | Address | [address] | | | [place] [address] | + + + | Home Phone [...] Providers + +------+ + | Care Licensed Mental Health Professional Name | Role | Phone | + +------+ + | Miquel Calhoun MD | PCP | | + +------+ + Reason for Visit + +--------+ + | Reason | Onset | Comments | | | Date | | + +--------+ + | Urine incontinence | 09/13/ | Dr. Holbrook | | | 2012 | | + +--------+ + Encounter Details +--------+ + + + + | Date | Type | Department | Care Team | Description | +--------+ + + + + | 09/13/ | Telephone | [facility] | Monserrat Holbrook MD | Urine incontinence | | 2012 | | [facility] | [address] | (Dr. Holbrook) | | | | [address] | [address] | | | | | [address] | [place], [place] | | | | | Pavilion, [facility] floor | [address] | | | | | [place], [place] | [phone] | | | | | [address] | | | | | | [phone] | | | +--------+ + + + [...] Telephone Encounter - Jaky Kennedy RN - 09/13/2013 4:38 PM PSTPt is not an established p t. Pt states her current urologist, who referred her to Dr. Holbrook for second opinion on rec urrent UTI and bladder pain, has been contacted and plans to tx pt for current UTI. Pt asking to be scheduled with Dr. Holbrook prior to 11/14/12. Scheduled 10/10/13 at 1515. elephone Encounter - Karen Mina - 09/13/2013 3:17 PM PSTPatient states, "I'm having really bad abdominal pain an d my urine stinks really bad. It smells rotten." Patient was scheduled for 09/26, but rescheduled to 11/14 for "travel issues." Patient woul d like a sooner appointment now, as she feels she needs to be seen sooner. Patient requests a call back to discuss this matter at [phone]. Caller states it is OK to leave confidential messages on voice messaging system. documented in this encounter Plan of Treatment Not on filedocumented as of this encounter Visit Diagnoses Not on filedocumented in this encounter
--- OUTSIDE RECORDS SUMMARY | ~2020-08-10 | XMS | Encounter Summary ---
Demographics + + + | Address | [address] | | | [place] [address] | + + + | Home Phone [...] Providers + +------+ + | Care Director Credit Risk Name | Role | Phone | + [...] | | 2016 | Encounter | at [facility] [address] | [address] | medical records from | | | | [facility] for | [address] [place], | [facility] in | | | | Health and Healing, | [place] [address] | [facility] | | | | Building | [phone] | in [address] | | | | Floor [place], [place] | | Ant | | | | [address] | | | | | | [phone] | | | +--------+ + + + [...]
--- OUTSIDE RECORDS SUMMARY | ~2020-08-10 | XMS | Encounter Summary ---
Demographics + + + | Address | [address] | | | [place] [address] | + + + | Home Phone [...] Request | 12/18/ | | | | 2015 | | + +--------+ + Encounter Details +--------+ + + + + | Date | Type | Department | Care Team | Description | +--------+ + + + + | 12/18/ | Telephone | [facility] | Sj Valdes MD | Records Request | | 2014 | | NEUROSURGERY [address] | [address] [address] | | | | | [address] [facility] | [place] [address] | | | | | Beena Hargrove [place] | [phone] | | | | | [address] | | | | | | [phone] | | | +--------+ + + + [...] Miscellaneous Notes Telephone Encounter - Cindy Shaikh S - 12/18/2014 3:03 PM PSTContacted [facility]. Patient was seen on 12/13/14. Next visit [...] [place] | | | | | | [id number] | | | | | | | | +--------+---------+ + + + | 09/01/ | Office | Cardiology | Monserrat Weems | | 2019 | Visit | | [address] | | | | | | [address] | | | | | | [place] [address] | | | | | | [phone] | | | | | | | | +--------+---------+ + + + documented as of this encounter Visit Diagnoses Not on filedocumented in this encounter"
--- OUTSIDE RECORDS SUMMARY | ~2020-08-10 | XMS | Encounter Summary ---
Demographics + + + | Address | [address] | | | [place] [address] | + + + | Home Phone [...] Team Providers + +------+ + | Care Neon Sign Maker Name | Role | Phone | [...] Chronic low | [place], | [address] | | | | | back pain | Shay Mukherjee MD | [place], | | | | | Procedures | [address] | [place] | | | | | MRI Lumbar | [place] | [address] | | | | | Spine wo | [place], [place] | Phone: | | | | | Contrast | [address] | [phone] | | | | | | Phone: | Fax: | | | | | | [phone] | [phone] | | | | | | Fax: | | | | | | | [phone] | | +--------+--------+ + + + + [...] + + | 08/16/ | Office | [facility] | Shay Dietz | Chronic low back | | 2012 | Visit | PHYSIATRY [address] | MD Lonny [address] | pain (Primary Dx); | | | | [address] | [address] [place] | DISC DISEASE, | | | | [place] | [address] | LUMBAR; Facet | | | | [address] | | arthritis of lumbar | | | | [phone] | | region | +--------+---------+ + + [...] the most recent injection was performed by or on 11/09/2012. She reports good relief with [...] [place] | | | | | | [address] | | | | | | | | +--------+---------+ + + + | 09/01/ | Office | Cardiology | Faustina Monserrat | | | 2020 | Visit | | [address] | | | | | | [address] | | | | | | [place] [address] | | | | | | [phone] | | | | | | | [...]
--- OUTSIDE RECORDS SUMMARY | ~2020-08-10 | XMS | Encounter Summary ---
Demographics + + + | Address | [address] | | | [place] [address] | + + + | Home Phone [...] Providers + +------+ + | Care Supervisor [place] Department Name | Role | Phone | [...] | | | | | Lumbar | [place], | [address] | | | | | spondylosis | Shay Mukherjee MD | [place], | | | | | Right hip | [address] | [place] | | | | | pain | [place] | [address] | | | | | Procedures | [place], [place] | Phone: | | | | | [place] INJ | [address] | [phone] | | | | | DX/THER AGNT | Phone: | Fax: | | | | | [place] | [phone] | [phone] | | | | | FACET JOINT, | Fax: | | | | | | LUMBAR/SAC, | [phone] | | | | | | 1ST LEVEL | | | | | | | [place] | | | | | | | [place] | | | | | | | E ACET INJ | | | | | | | NOS, 10 MG | | | | | | | [place] | | | | | | [...] + + | 02/08/ | Hospital | [facility] | Shiracz, | Trochanteric | | 2017 | Encounter | MED CTR XRAY [address] | [address] | bursitis of right | | | | [place] | [facility] [address] | hip (Primary Dx); | | | | [place] [address] | [place] [address] | Chronic bilateral | | | | [phone] | [phone] | low back pain with | | | | | | right-sided | | | | | Nutrition Consultant, [facility] | sciatica; Facet | | | | | [place] | arthritis of lumbar | | | | | | region ([facility]); | | | | | | Adolescent [...] [place] | | | | | | [address] | | | | | | | | +--------+---------+ + + + | 09/01/ | Office | Cardiology | Faustina Monserrat | | | 2019 | Visit | | [address] | | | | | | [address] | | | | | | [place] [address] | | | | | | [phone] | | | | | | | [...] | | | | | lumbar region ([facility]) | | | | | | Adolescent [...] Trochanteric Bursitis ICD-10 Code M47.816 and ICD-10 [facility] | | Harshal Rubio presents [...] | [address] | [address] | [place] | [phone] | | [facility] | | [address] | | | - IMAGING | | [...] | | | | | Other, ONCE, Dee 02/08/17 at 1330, | | PM PDT [...]
--- OUTSIDE RECORDS SUMMARY | ~2020-08-10 | XMS | Encounter Summary ---
Demographics + + + | Address | [address] | | | [place] [address] | + + + | Home Phone [...] Providers + +------+ + | Care Supervisor Patching Name | Role | Phone | + +------+ + | Wendi Aiken | PCP | | + +------+ + Encounter Details +--------+ + + + + | Date | Type | Department | Care Team | Description | +--------+ + + + + | 04/06/ | Imaging | [facility] | Provider, | | | 2018 | Exam | MED CTR EXTERNAL | MD [address] | | | | | IMAGING [address] | [address] | | | | | [address] [place] | [place] [address] | | | | | [place] [address] | | | | | | [phone] | | | +--------+ + + + [...] [place] | | | | | | [address] | | | | | | | | +--------+---------+ + + + | 09/01/ | Office | Cardiology | Monserrat Weems | | | 2020 | Visit | | [address] | | | | | | [address] | | | | | | [place] [address] | | | | | | [phone] | | | | | | | [...]
--- OUTSIDE RECORDS SUMMARY | ~2020-08-10 | XMS | Encounter Summary ---
Demographics + + + | Address | [address] | | | [place] [address] | + + + | Home Phone [...] Providers + +------+ + | Care Grade School Teacher Name | Role | Phone | + +------+ + PCP | Unavailable | + +------+ + Encounter Details +--------+ + + + + | Date | Type | Department | Care Team | Description | +--------+ + + + + | 09/18/ | Abstract | [facility] [place] | [facility], | | | 2011 | | GASTROENTEROLOGY | KANG Quevedo [address] | | | | | [address] | [address] | | | | | [address] [place], [place] | [place], [place] | | | | | [address] | [address] | | | | | [phone] | | | +--------+ + + + [...] [place] | | | | | | [address] | | | | | | | | +--------+---------+ + + + | 09/01/ | Office | Cardiology | Monserrat Weems | | | 2019 | Visit | | [address] | | | | | | [address] | | | | | | [place] [address] | | | | | | [phone] | | | | | | | | +--------+---------+ + + + documented as of this encounter Visit Diagnoses Not on filedocumented in this encounter"
--- OUTSIDE RECORDS SUMMARY | ~2020-08-10 | XMS | Encounter Summary ---
Demographics + + + | Address | [address] | | | [place] [address] | + + + | Home Phone [...] + + | 09/04/ | Telephone | [facility] | Shay Dietz | Appointment | | 2012 | | PHYSIATRY [address] | TMD [address] | | | | | [address] | [address] [place] | | | | | [place], [place] | [address] | | | | | [address] | | | | | | [phone] | | | +--------+ + + + [...] [place] | | | | | | [id number] | | | | | | | | +--------+---------+ + + + | 09/01/ | Office | Cardiology | Monserrat Weems | | | 2019 | Visit | | [address] | | | | | | [address] | | | | | | [place] [place] [address] | | | | | | [phone] | | | | | | | | +--------+---------+ + + + documented as of this encounter Visit Diagnoses Not on filedocumented in this encounter"
--- OUTSIDE RECORDS SUMMARY | ~2020-08-10 | XMS | Encounter Summary ---
Demographics + + + | Address | [address] | | | [place] [address] | + + + | Home Phone [...] Team Providers + +------+ + | Care Lumpia Wrapper Maker Name | Role | Phone | + +------+ + | Romy De La Paz MD | PCP | | + +------+ + Reason for Visit + +--------+ + | Reason | Onset | Comments | | | Date | | + +--------+ + | Appointment | 15/ | | | | 2020 | | + +--------+ + Encounter Details +--------+ + + + + | Date | Type | Department | Care Team | Description | +--------+ + + + + | 03/14/ | Telephone | [facility] | Denys Sibley, | Appointment | | 2020 | | [facility] | DO [address] | | | | | DOLOROLOGY [address] | [place], [place] | | | | | [address] | [address] | | | | | [place], [place] | | | | | | [address] | | | | | | [phone] | | | +--------+ + + + [...] this encounter Miscellaneous Notes Telephone Encounter - Eewlina Farrar, General Lithographic Worker - 03/14/2020 11:40 AM P DTProactive screening [...] [place] | | | | | | [address] | | | | | | | | +--------+---------+ + + + | 09/01/ | Office | Cardiology | Monserrat Weems | | | 2019 | Visit | | [address] | | | | | | [address] | | | | | | [place] [address] | | | | | | [phone] | | | | | | | | +--------+---------+ + + + documented as of this encounter Visit Diagnoses Not on filedocumented in this encounter"
--- OUTSIDE RECORDS SUMMARY | ~2020-08-10 | XMS | Encounter Summary ---
Demographics + + + | Address | [address] | | | [place] [address] | + + + | Home Phone [...] Team Providers + +------+ + | Care Electrostatic Paint Operator Name | Role | Phone | [...] | | 2015 | Encounter | at [facility] [address] | [address] | | | | | [facility] for | [address] [place], | | | | | Health and Healing, | [place] [address] | | | | | [facility] | [phone] | | | | | Floor [place], [place] | | | | | | [address] | | | | | | [phone] | | | +--------+ + + + [...]
--- OUTSIDE RECORDS SUMMARY | ~2020-08-10 | XMS | Encounter Summary ---
Demographics + + + | Address | [address] | | | [place] [address] | + + + | Home Phone [...] Team Providers + +------+ + | Care Pilot Steam Yacht Name | Role | Phone | + [...] + + | 04/10/ | Telephone | [facility] | Nick Martinez, | Medication Prior | | 2018 | | PHYSIATRY [address] | PA-C [address] | Authorization | | | | [address] | [address] [facility] | (Lidocaine Patch ) | | | | [place], [place] | [place] [address] | | | | | [address] | [phone] | | | | | [phone] | | | +--------+ + + + [...] this encounter Miscellaneous Notes Telephone Encounter - JulietteMarisol Wong - 04/19/2018 9:12 AM PDTLidocaine denied. Sent letter to Him to be scanned. Closed encounter today. Electronically signed by Marisol Segovia at 04/19 9:12 AM PDTTelephone Encounter - Juliette Marisol Wong - 04/19/2018 8:42 AM PDTSent in baske t message to nurse regarding denial. Pending. Electronically signed by Marisol Segovia at 04/19 8:42 AM PDTTelephone Encounter - Cheyenne Flores Quality Control - 04/10/2018 11: 02 AM PDTPlease complete referral for 5% lidocaine patches. Patient is aware this may not ge t approved and will be waiting for an update. Thanks, Cheyenne Flores MA-CElectronically signed by Cheyenne Flores Quality Control at 8 11:03 AM PDTdocumented in this [...] [place] | | | | | | [address] | | | | | | | | +--------+---------+ + + + | 09/01/ | Office | Cardiology | Monserrat Weems | | | 2020 | Visit | | [address] | | | | | | [address] | | | | | | [place] [address] | | | | | | [phone] | | | | | | | | +--------+---------+ + + + documented as of this encounter Visit Diagnoses Not on filedocumented in this encounter"
--- OUTSIDE RECORDS SUMMARY | ~2020-08-10 | XMS | Encounter Summary ---
Demographics + + + | Address | [address] | | | [place] [address] | + + + | Home Phone [...] Providers + +------+ + | Care Supervisor Rough End Name | Role | Phone | + [...] + + | 07/05/ | Telephone | [facility] | Maykel Hutchins MD | Advice Only; Other | | 2018 | | NEUROSCIENCE CENTER | [address] | (inform office) | | | | ORTHOPEDIC SPINE | [place], [place] | | | | | [address] | [address] | | | | | [place] | | | | | | [address] | | | | | | [phone] | | | +--------+ + + + [...] back. Additional Call Details: Returning call. Call: [phone] elephone Encounter - Makenzie Hurley CMA - [...] would like orders faxed to [facility]. Patient stated that she has another fall. Advised if pain is severe patient should go to ER for evaluation. Informed patient to call clinic after x-rays complete so images can reviewed. Kori verbalized understanding. Orders faxed to [phone]. 12:1 3 PM PDTTelephone Encounter - Autumn [...] Call Details: Requesting to speak with medical lab scientist regarding her talking to provider about having imaging done due to the falls she's been having. elephone Encoun Julien Gibson ARNP - 07/05/2019 2:18 PM PDTTypically she goes to her PCP and gets thes e imaging. We can schedule x-ray thoracic and lumbar AP/Lat to see if there are any fracture . elephone Encounter - Reece Cardona Manager Of Change - 07/05/2019 12:33 PM PDTReturned patient call, [...] inquiring if imaging may be necessary. Call: [phone] If this is a symptom based call, was patient offered triage? Not Applicable If this is a symptom based call and you were unable to immediately transfer the call to a jose m franco breakfast supervisor was caller made aware that if [...] F | | | | | | [place] [address] | | | | | | [phone] | | | | | | | [...]
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
--- OUTSIDE RECORDS SUMMARY | ~2020-08-10 | XMS | Encounter Summary ---
Demographics + + + | Address | [address] | | | [place] [address] | + + + | Home Phone [...] Providers + +------+ + | Care Data Support Analyst Name | Role | Phone | + +------+ + PCP | Unavailable | + +------+ + Encounter Details +--------+ + + + + | Date | Type | Department | Care Team | Description | +--------+ + + + + | 06/26/ | Respiratory | | Other, Faculty | | | 2006 | Therapy | | [phone] | | +--------+ + + + + [...] | | | | FOR RESULTS. Julian Hassna, | | | | | | DITCHER | | | | + + + [...] RADHA ALONZO | [address] | [place], [place] | | | DIAGNOSTICS - | [place] | [address] | | | PULMONARY FUNCTION | | | | + + + + + documented in this encounter Visit Diagnoses Not on filedocumented in this encounter"
--- OUTSIDE RECORDS SUMMARY | ~2020-08-10 | XMS | Encounter Summary ---
Demographics + + + | Address | [address] | | | [place] [address] | + + + | Home Phone [...] Providers + +------+ + | Care Software Integration Developer Name | Role | Phone | + +------+ + PCP | Unavailable | + +------+ + Encounter Details +--------+ + + + + | Date | Type | Department | Care Team | Description | +--------+ + + + + | 09/22/ | Hospital | [facility] | Shay Dietz | | | 2010 | Encounter | MED CTR XRAY [address] | T, [address] | | | | | [place] | [place], [place] | | | | | [place] [address] | [address] | | | | | [phone] | | | +--------+ + + + [...] [place] | | | | | | [address] | | | | | | | | +--------+---------+ + + + | 09/01/ | Office | Cardiology | Monserrat Weems | | | 2019 | Visit | | [address] | | | | | | [address] | | | | | | [place] [address] | | | | | | [phone] | | | | | | | [...] Performed At | + + + | [facility] Diagnostic Imaging Department | [facility] | | [address] [facility] | [facility] | | LUMBAR FACET INJECTIONS, | DIAG [...] Transcribed Date/Time: | | | 09/22/2011 18:07 [place]: <Electronically Signed | | | by Shay Dietz MD> 09/27/11 1035 | | + + + + + | Procedure Note | + + | Reji Pacheco Conversion - 12/07/2013 4:17 PM [facility] | | Diagnostic Imaging Department [address] [facility] | | LUMBAR FACET INJECTIONS, 09/22/2011 CLINICAL [...] 17:09 | |Transcribed Date/Time: 09/22/2011 18:07 | |[place]: | |<Electronically Signed by Shay Dietz MD> 09/27/11 1035 | + + + +---------+ + + | Performing | Address | City/State/Zipcode | Phone Number | | Organization | | | | + +---------+ + + | [place] | | | | | [facility] | | | | + +---------+ + + documented in this encounter Visit Diagnoses Not on filedocumented in this encounter"
--- OUTSIDE RECORDS SUMMARY | ~2020-08-10 | XMS | Encounter Summary ---
Demographics + + + | Address | [address] | | | [place] [address] | + + + | Home Phone [...] + +------+ + | Care Nurse Practitioner Physician Assistant Name | Role | Phone [...] + + | 10/15/ | Office | [facility] | Denys Sibley, | Spinal stenosis of | | 2019 | Visit | [facility] | DO [address] | lumbosacral region | | | | [address] | [place] | (Primary Dx); Lumbar | | | | [address] | [address] | region somatic | | | | [place], [place] | | dysfunction; | | | | [address] | | Intractable back | | | | [phone] | | pain; Chronic | | | [...] encounter Progress Notes Denys Sibley, DO - 10/15/2019 4:00 PM PSTFormatting of this note might be different fr om the original. CHRONIC PAIN VISIT Patient ID: Kori Rubio is a 74 y.o. female (: 1945). 74-year-old female seen back to the office today for medication evaluation follow-up. Current medications include a fentanyl patch 12 mcg applied to the anterior chest wall ever y 72 hours. Nelson 10/325 1 p.o. every 6 hours as [...] including but not limited to physical therapy, chronic care nurse, acupuncture, massage therapy, and nutritional [...] general activity) Total score: (Printable questionnaires in Grenadian ) Interpretation of Total Score: PEG scores are used to track changes over time. It should de crease after therapy has begun. Last 4 PEG Scores: No flowsheet data found. Opioid Risk Tool (ORT): Total Score Pulse: 77 Resp: 16 BP: 113/57 SpO2: 100 % (From Chronic Pain tab; printable questionnaires in Grenadian) Interpretation of Total Score: 0 to 3 [...] BY MOUTH 5 TIMES A WEEK (TUESDAY THRU ), Disp: , Rfl: 0 levothyroxine (SYNTHROID) 100 [...] Date Acid reflux disease Acute renal failure ([facility]) April 2013 Adverse effect of anesthesia hx hallucinations after anesthesia x 3 yrs ago. Anesthesia hallucinated after bladder repair Arthralgia Arthritis Asthma Asthma Back pain Cancer ([facility]) 2004 breast Cataract Cerebrovascular accident (CVA) ([facility]) no per pt Chronic back pain Chronic back pain Chronic constipation Concussion 07/2015 Preceeded by seizure Constipation COPD (chronic obstructive pulmonary disease) ([facility]) Degenerative disc disease Depression Depression Diabetes mellitus ([facility]) Diabetes mellitus, type 2 (HCC) diet controlled Diabetes type 2, controlled ([facility]) diet controlled Diarrhea Disorder of thyroid Diverticulosis [...] Scoliosis Scoliosis of lumbar spine 04/17/2014 Seizure ([facility]) one due to meds, two due to [...] Date Acid reflux disease Acute renal failure ([facility]) April 2013 Adverse effect of anesthesia hx hallucinations after anesthesia x 3 yrs ago. Anesthesia hallucinated after bladder repair Arthralgia Arthritis Asthma Asthma Back pain Cancer ([facility]) 2004 breast Cataract Cerebrovascular accident (CVA) ([facility]) no per pt Chronic back pain Chronic back pain Chronic constipation Concussion 07/2015 Preceeded by seizure Constipation COPD (chronic obstructive pulmonary disease) ([facility]) Degenerative disc disease Depression Depression Diabetes mellitus ([facility]) Diabetes mellitus, type 2 ([facility]) diet controlled Diabetes type 2, controlled ([facility]) diet controlled Diarrhea Disorder of thyroid Diverticulosis [...] Procedure: KYPHOPLASTY; Surgeon: Alfredo Casillas DO; Location: [facility] MA[facility] OR; Service: Pa in Management; Laterality: N/A; L5 FRACTURE SURGERY ANKLE HERNIA REPAIR HYSTERECTOMY HYSTERECTOMY LAMINECTOMY N/A 08/03/2019 Procedure: LAMINOTOMY THORACIC / LUMBAR W/ PLACEMENT SPINAL CORD STIMULATOR; Surgeon: Suly Hutchins MD; Location: [facility] MAIN OR OTHER SURGICAL HISTORY EPIDURAL STEROID [...] reviewed, listed controlled substances are consistent with [facility] prescriptions and patient reported use. Controlled [...] = high risk) Daily Opioid Dose = Nelson 10/325 1 p.o. every 4 hours. Discontinue [...] of the fentanyl patch inc reased her Nelson to every 4 hours. Patient understands this [...] imited to physical therapy, massage therapy, acupuncture, chronic care nurse, along with niki mmended psychological [...] are noted in men and women. [facility] men will suffer erectile dysfunction with [...] weeks. This document has been created using [employer] Voice Recognition software and [employer]. The entry has been reviewed for content and accuracy, but there may still exist "sound alike" legal entity controller word errors and/or unintended additions and deletions. [...] [place] | | | | | | [id number] | | | | | | | | +--------+---------+ + + + | 09/01/ | Office | Cardiology | Monserrat Weems | | | 2019 | Visit | | [address] | | | | | | [address] | | | | | | [place] [address] | | | | | | [phone] | | | | | | | [...]
--- OUTSIDE RECORDS SUMMARY | ~2020-08-10 | XMS | Encounter Summary ---
Demographics + + + | Address | [address] | | | [place] [address] | + + + | Home Phone [...] Providers + +------+ + | Care Supervisor Looping Name | Role | Phone | + +------+ + | Wendi Aiken | PCP | | + +------+ + Encounter Details +--------+ + + + + | Date | Type | Department | Care Team | Description | +--------+ + + + + | 10/27/ | Hospital | [facility] | Conversion | Diagnosis unknown | | 2018 | Encounter | CONVERSION [address] | Transaction, | | | | | [address] | Provider Unknown | | | | | [place], [place] | [phone] | | | | | [address] | | | | | | [phone] | | | +--------+ + + + [...] [place] | | | | | | [address] | | | | | | | | +--------+---------+ + + + | 09/01/ | Office | Cardiology | Monserrat Weems | | | 2019 | Visit | | [address] | | | | | | [address] | | | | | | [place] [address] | | | | | | [phone] | | | | | | | [...]
--- OUTSIDE RECORDS SUMMARY | ~2020-08-10 | XMS | Encounter Summary ---
Demographics + + + | Address | [address] | | | [place] [address] | + + + | Home Phone [...] Providers + +------+ + | Care Loan Documentation Specialist Name | Role | Phone | + +------+ + | Romy De La Paz MD | PCP | | + +------+ + Encounter Details +--------+ + + + + | Date | Type | Department | Care Team | Description | +--------+ + + + + | 04/15/ | Hospital | [facility] | HaseebagAlfredo coffey, DO | Intractable back | | 2019 | Encounter | [address] | [address] | pain; Lumbar region | | | | [address] | [place] [address] | somatic dysfunction; | | | | [place], [place] | [phone] | Foraminal stenosis | | | | [address] | | of lumbar region - | | | | [phone] | | left L5-S1; | | | [...] 1 SPRAY(S) IN | | 0 | 04/14/20 | | | (FLONASE) 50 | EACH [...] | | | | | | 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 | | | | | + + + +---------+ + + | pramipexole | 0.5 mg . | | 0 | 04/14/20 | | | (MIRAPEX) 0.5 MG | | | | 20 | | | tablet | | | [...] times daily. | | | 19 | 0 | + + + +---------+ [...] [place] | | | | | | [address] | | | | | | | | +--------+---------+ + + + | 09/01/ | Office | Cardiology | Monserrat Weems | | | 2019 | Visit | | [address] | | | | | | [address] | | | | | | [place] [address] | | | | | | [phone] | | | | | | | [...]
--- OUTSIDE RECORDS SUMMARY | ~2020-08-10 | XMS | Encounter Summary ---
Demographics + + + | Address | [address] | | | [place] [address] | + + + | Home Phone [...] Team Providers + +------+ + | Care Clinic Assistant Name | Role | Phone | + +------+ + | No, Physician | PCP | Unavailable | + +------+ + Encounter Details +--------+ + + + + | Date | Type | Department | Care Team | Description | +--------+ + + + + | 01/08/ | Hospital | [facility] | Shay Dietz | Lumbar radiculopathy | | 2013 | Encounter | MED CTR XRAY [address] | T, MD [address] | | | | | [place] | [address] [place], [place] | | | | | [place] [address] | [address] | | | | | [phone] | | | | | | | Card Cutter, [facility] | | | | | | [...] this encounter Miscellaneous Notes Miscellaneous - WILLIAM CARRANZA - 01/23/2014 12:00 AM PDT documented in this encounter [...] [place] | | | | | | [address] | | | | | | | | +--------+---------+ + + + | 09/01/ | Office | Cardiology | Monserrat Weems | | | 2019 | Visit | | [address] | | | | | | [address] | | | | | | [place] [address] | | | | | | [phone] | | | | | | | [...] radiculopathy ICD-9 Code 724.4 Ms. Sheikh | [facility] | | Joanne presents to the fluoroscopy suite for a [facility] | | fluoroscopically-guided left L5-S1 transforaminal epidural [...] | Epidural Steroid InjectionDiagnosis: Lumbar radiculopathyICD-9 Code 724.4MsJacquelyn Sheikh | | Joanne presents to the fluoroscopy [...] + | [address] | [address] | [place] | [phone] | | [facility] | | [address] | | | - IMAGING | | [...] | | | | | Other, ONCE KECIAN, Other, Starting | | PM PDT | | | | | 01/08/14 at 1328, For 1 dose, | | | | | | | Radiology | | | | | | + +-------+ +-------+---+---+ +---+---+ | | | +---+---+ documented in this encounter"
--- OUTSIDE RECORDS SUMMARY | ~2020-08-10 | XMS | Encounter Summary ---
Demographics + + + | Address | [address] | | | [place] [address] | + + + | Home Phone [...] Team Providers + +------+ + | Care Respite Coordinator Name | Role | Phone | + +------+ + | Romy De La Paz MD | PCP | | + +------+ + Reason for Visit + +--------+ + | Reason | Onset | Comments | | | Date | | + +--------+ + | Imaging Only | 07/19/ | | | | 2018 | | [...] | | | [address] | [place] [address] | | | | | [place], [place] | [phone] | | | | | [address] | | | | | | [phone] | | | +--------+ + + + [...] 1:49 PM [facility]Th[facility]. [...] agreed with the plan. Images done at [facility], faxed request to have thoracic and lumbar [...] [place] | | | | | | [address] | | | | | | | | +--------+---------+ + + + | 09/01/ | Office | Cardiology | Monserrat Weems | | 2019 | Visit | | [address] | | | | | | [address] | | | | | | [place] [address] | | | | | | [phone] | | | | | | | | +--------+---------+ + + + documented as of this encounter Visit Diagnoses Not on filedocumented in this encounter"
--- OUTSIDE RECORDS SUMMARY | ~2020-08-10 | XMS | Encounter Summary ---
Demographics + + + | Address | [address] | | | [place] [address] | + + + | Home Phone [...] Providers + +------+ + | Care Field Specialist Name | Role | Phone | [...] 2012 | | [facility] | [place], [place] | | | | | [address] | [address] | | | | | [address] | | | | | | [place], [address] [place] [address] | | | | | | [place], [place] | | | | | | [address] | | | | | | [phone] | | | +--------+ + + + [...] Telephone Encounter - Jaky Kennedy RN - 10/19/2013 8:54 AM PSTRouting to schedulers. Ple ase sent pt new uro questionnaire and new pt packet. Thanks! elephone Encounter - Khushbu Cortez, BUREAU DIRECTOR - 3 12:43 PM PSTPatient L/M for SW today asking for more "paperwork" that needs to be filled o ut, sent to her again for her 11/29/[address] [facility] Cystoscopy with Dr Britta Hankins. Pt said she lost paperwork but also thought she needed different paperwork for the next appt. I will in basket this request to nurse Jaky Kennedy and ask her to send pt new paperwork. Khushbu Cortez LCSW documented in this encounter Plan of Treatment Not on filedocumented as of this encounter Visit Diagnoses Not on filedocumented in this encounter
--- OUTSIDE RECORDS SUMMARY | ~2020-08-10 | XMS | Encounter Summary ---
Demographics + + + | Address | [address] | | | [place] [address] | + + + | Home Phone [...] Providers + +------+ + | Care Recreation Counselor Name | Role | Phone | + +------+ + | Wendi Aiken | PCP | | + +------+ + Encounter Details +--------+ + + + + | Date | Type | Department | Care Team | Description | +--------+ + + + + | 05/26/ | Hospital | [facility] IP | Conversion | Pain | | 2018 | Encounter | CONVERSION [address] | Transaction, | | | | | [address] | Provider Unknown | | | | | [place], [place] | [phone] | | | | | [address] | | | | | | [phone] | | | +--------+ + + + [...] [place] | | | | | | [address] | | | | | | | | +--------+---------+ + + + | 09/01/ | Office | Cardiology | Faustina Monserrat | | | 2019 | Visit | | [address] | | | | | | [address] | | | | | | [place] [address] | | | | | | [phone] | | | | | | | [...]
--- OUTSIDE RECORDS SUMMARY | ~2020-08-10 | XMS | Encounter Summary ---
Demographics + + + | Address | [address] | | | [place] [address] | + + + | Home Phone [...] Team Providers + +------+ + | Care Rheumatology Specialist Name | Role | Phone | + +------+ + | Miquel Calhoun MD | PCP | | + +------+ + Reason for Visit +--------+--------+ + | Reason | Onset | Comments | | | Date | | +--------+--------+ + | Other | 10/18/ | | | | 2012 | | +--------+--------+ + Encounter Details +--------+ + + + + | Date | Type | Department | Care Team | Description | +--------+ + + + + | 10/18/ | Telephone | [facility] [place] | Shay Dietz | Other | | 2012 | | PHYSIATRY [address] | [address] | | | | | [address] | [address] [place] | | | | | [place] | [address] | | | | | [address] | | | | | | [phone] | | | +--------+ + + + [...] encounter Miscellaneous Notes Telephone Encounter - Emerita Morrow - 10/18/2013 3:05 PM PSTReceived phone call from jose m moreno stating she is having a reaction from the medial branch block she had today at 1:30 p m. Patient states she is allergic to prednisone causing her to become severely depressed. Chadd quiroz was informed that the procedure she had performed today was an injection of only bupivacai ne which is a numbing agent not a steroid. Patient was informed that per Dr. Dietz she told him at time of injection that her mood was very well, she was informed that her depress ion was not related to the injection she received today. documented in this encounter Plan of Treatment +--------+---------+ + + + | Date | Type | Specialty | Care Team | Description | +--------+---------+ + + + | 08/20/ | Office | Pain Medicine | Denys Sibley, | | | 2019 | Visit | | DO [address] | | | | | | [place] | | | | | | [address] | | | | | | | | +--------+---------+ + + + | 09/01/ | Office | Cardiology | Monserrat Weems | | | 2019 | Visit | | [address] | | | | | | [address] | | | | | | [place] [address] | | | | | | [phone] | | | | | | | | +--------+---------+ + + + documented as of this encounter Visit Diagnoses Not on filedocumented in this encounter"
--- OUTSIDE RECORDS SUMMARY | ~2020-08-10 | XMS | Encounter Summary ---
Demographics + + + | Address | [address] | | | [place] [address] | + + + | Home Phone [...] Team Providers + +------+ + | Care Mfts Name | Role | Phone | + [...] | | | [place], [place] | [address] | | | | | [address] | | | | | | [phone] | | | +--------+ + + + [...] 08/20/ | Office | Pain Medicine | Densy Sibley, | | | 2019 | Visit | | DO [address] | | | | | | [place] | | | | | | [address] | | | | | | | | +--------+---------+ + + + | 09/01/ | Office | Cardiology | Monserrat Weems | | | 2019 | Visit | | [address] | | | | | | [address] | | | | | | [place] [address] | | | | | | [phone] | | | | | | | | +--------+---------+ + + + documented as of this encounter Visit Diagnoses + + | Diagnosis | + + | Back pain - Primary Backache, unspecified | + + documented in this encounter"
--- OUTSIDE RECORDS SUMMARY | ~2020-08-10 | XMS | Encounter Summary ---
Demographics + + + | Address | [address] | | | [place] [address] | + + + | Home Phone [...] 2015 | Encounter | at [facility] [address] | [address] | | | | | [facility] for | [address] [place], | | | | | Health and Healing, | [place] [address] | | | | | [facility] | [phone] | | | | | Floor [place], [place] | | | | | | [address] | | | | | | [phone] | | | +--------+ + + + [...]
--- OUTSIDE RECORDS SUMMARY | ~2020-08-10 | XMS | Encounter Summary ---
Demographics + + + | Address | [address] | | | [place] [address] | + + + | Home Phone [...] Team Providers + +------+ + | Care Retort Cooler Name | Role | Phone | + +------+ + | Wendi Aiken | PCP | | + +------+ + Encounter Details +--------+ + + + + | Date | Type | Department | Care Team | Description | +--------+ + + + + | 10/27/ | Hospital | [facility] | Conversion | Diagnosis unknown | | 2018 | Encounter | CONVERSION [address] | Transaction, | | | | | [address] | Provider Unknown | | | | | [place], [place] | [phone] | | | | | [address] | | | | | | [phone] | | | +--------+ + + + [...] [place] | | | | | | [address] | | | | | | | | +--------+---------+ + + + | 09/01/ | Office | Cardiology | Monserrat Weems | | | 2019 | Visit | | [address] | | | | | | [address] | | | | | | [place] [address] | | | | | | [phone] | | | | | | | [...]
--- OUTSIDE RECORDS SUMMARY | ~2020-08-10 | XMS | Encounter Summary ---
Demographics + + + | Address | [address] | | | [place] [address] | + + + | Home Phone [...] Team Providers + +------+ + | Care Pocketed Spring Machine Operator Name | Role | Phone [...] + + | 04/15/ | Office | [facility] | Denys Sibley, | S/P insertion of | | 2020 | Visit | [facility] | DO [address] | spinal cord | | | | [address] | [place], [place] | stimulator (Primary | | | | [address] | [address] | Dx); Spinal stenosis | | | | [place], [place] | | of lumbosacral | | | | [address] | | region; Intractable | | | | [phone] | | back pain; Encounter | | [...] including but not limited to physical therapy, critical care unit nurse, acupuncture, massage therapy, and nutritional healt [...] Author Status Filed Medication Agreement Rupa Nye, Glass Melt Operator Active 11/14/2019 1:49 PM Pain Contract- Dr. Sibley 11/14/2019 PEG Pain screening tool (Pain, enjoyment, general activity) Total score: (Printable questionnaires in Maltese ) Interpretation of Total Score: PEG scores are used to track changes over time. It should de crease after therapy has begun. Last 4 PEG Scores: No flowsheet data found. Opioid Risk Tool (ORT): Total Score Temp: 36.6 C (97.9 F) Temp Source: Oral Pulse: 56 Resp: 16 BP: 112/57 SpO2: 98 % (From Chronic Pain tab; printable questionnaires in Maltese) Interpretation of Total Score: 0 to 3 [...] Arthritis Asthma Asthma Back pain Cancer ([facility]) 2004 breast Cataract Cerebrovascular accident (CVA) ([facility]) no per pt Chronic back pain Chronic back pain Chronic constipation Concussion 07/2015 Preceeded by seizure Constipation COPD (chronic obstructive pulmonary disease) ([facility]) Degenerative disc disease Depression Depression Diabetes mellitus ([facility]) Diabetes mellitus, type 2 ([facility]) diet controlled Diabetes type 2, controlled ([facility]) diet controlled Diarrhea Disorder of thyroid [...] Scoliosis of lumbar spine 04/17/2014 Seizure ([facility]) one due to meds, two due to [...] Arthritis Asthma Asthma Back pain Cancer ([facility]) 2004 breast Cataract Cerebrovascular accident (CVA) ([facility]) no per pt Chronic back pain Chronic back pain Chronic constipation Concussion 07/2015 Preceeded by seizure Constipation COPD (chronic obstructive pulmonary disease) ([facility]) Degenerative disc disease Depression Depression Diabetes mellitus ([facility]) Diabetes mellitus, type 2 ([facility]) diet controlled Diabetes type 2, controlled ([facility]) diet controlled Diarrhea Disorder of thyroid [...] Scoliosis of lumbar spine 04/17/2014 Seizure ([facility]) one due to meds, two due to [...] Procedure: KYPHOPLASTY; Surgeon: Alfredo Casillas DO; Location: [facility] OR; Service: Pa in Management; Laterality: N/A; L5 FRACTURE SURGERY ANKLE HERNIA REPAIR HYSTERECTOMY HYSTERECTOMY LAMINECTOMY N/A 08/03/2019 Procedure: LAMINOTOMY THORACIC / LUMBAR W/ PLACEMENT SPINAL CORD STIMULATOR; Surgeon: Suly Hutchins MD; Location: [facility] OTHER SURGICAL HISTORY EPIDURAL STEROID [...] surgery in the near future. Patient and track supervisor understood the above plan and will return [...] imited to physical therapy, massage therapy, acupuncture, critical care unit nurse, along with niki mmended psychological counseling, either privately, or in group sessions offered by private care individuals, community services, or synagogue organizations. Appropriate referrals were made at patient [...] and complications with the passage of time. senior care use is also associated with depressions, and [...] coordination of care with other health home health care case manager and monitoring labs results, other test results and imagin g including [facility] and/or [facility] prescription monitoring systems. This document has been created using [employer] Voice Recognition software and [employer]. The entry has been reviewed for content and accuracy, but there may still exist "sound alike" respiratory therapist assistant word errors and/or unintended additions and deletions. [...] [place] | | | | | | [id number] | | | | | | | | +--------+---------+ + + + | 09/01/ | Office | Cardiology | Monserrat Weems | | 2019 | Visit | | [address] | | | | | | [address] | | | | | | [place] [address] | | | | | | [phone] | | | | | | | [...]
--- OUTSIDE RECORDS SUMMARY | ~2020-08-10 | XMS | Encounter Summary ---
Demographics + + + | Address | [address] | | | [place] [address] | + + + | Home Phone [...] Team Providers + +------+ + | Care Board Certified Behavioral Analyst Name | Role | Phone | [...] | unspecified type | | | | [facility] | | | | | | and Healing, | | | | | | [address] | | | | | | [place], [place] | | | | | | [address] | | | | | | [phone] | | | +--------+------+ + + + [...] LIPID LAB | [id number] | [place], [place] | | | | [facility] | [address] | | + + + + + documented in this encounter Visit Diagnoses + + | Diagnosis | + + | Chest pain, unspecified type | + + documented in this encounter"
--- OUTSIDE RECORDS SUMMARY | ~2020-08-10 | XMS | Encounter Summary ---
Demographics + + + | Address | [address] | | | [place] [address] | + + + | Home Phone [...] Providers + +------+ + | Care Deputy Grand Jury Name | Role | Phone | + [...] + + | 05/19/ | Office | [facility] | Denys Sibley, | S/P insertion of | | 2019 | Visit | [facility] | DO [address] | spinal cord | | | | [address] | [place], [place] | stimulator (Primary | | | | [address] | [address] | Dx); Spinal stenosis | | | | [place], [place] | | of lumbosacral | | | | [address] | | region; Lumbar | | | | [phone] | | region somatic | | | [...] encounter Progress Notes Denys Sibley, DO - 05/19/2020 8:40 AM PDTFormatting of [...] Author Status Filed Medication Agreement Rupa Nye, Human Capital Consultant Active 11/14/2019 1:49 PM Pain Contract- Dr. Sibley 11/14/2019 PEG Pain screening tool (Pain, enjoyment, general activity) Total score: (Printable questionnaires in Wolof ) Interpretation of Total Score: PEG scores are used to track changes over time. It should de crease after therapy has begun. Last 4 PEG Scores: No flowsheet data found. Opioid Risk Tool (ORT): Total Score Temp: 36.7 C (98 F) Temp Source: Oral Pulse: 70 Resp: 16 BP: 107/64 SpO2: 100 % (From Chronic Pain tab; printable questionnaires in Wolof) Interpretation of Total Score: 0 to 3 [...] Back pain Cancer ([facility]) 2004 breast Cataract Cerebrovascular accident (CVA) ([facility]) no per pt Chronic back pain Chronic back pain Chronic constipation Concussion 07/2015 Preceeded by seizure Constipation COPD (chronic obstructive pulmonary disease) ([facility]) Degenerative disc disease Depression Depression Diabetes mellitus ([facility]) Diabetes mellitus, type 2 ([facility]) diet controlled Diabetes type 2, controlled ([facility]) diet controlled Diarrhea Disorder of thyroid [...] Scoliosis of lumbar spine 04/17/2014 Seizure ([facility]) one due to meds, two due [...] Back pain Cancer ([facility]) 2004 breast Cataract Cerebrovascular accident (CVA) ([facility]) no per pt Chronic back pain Chronic back pain Chronic constipation Concussion 07/2015 Preceeded by seizure Constipation COPD (chronic obstructive pulmonary disease) ([facility]) Degenerative disc disease Depression Depression Diabetes mellitus ([facility]) Diabetes mellitus, type 2 ([facility]) diet controlled Diabetes type 2, controlled ([facility]) diet controlled Diarrhea Disorder of thyroid [...] Scoliosis of lumbar spine 04/17/2014 Seizure ([facility]) one due to meds, two due [...] KYPHOPLASTY; Surgeon: Alfredo Casillas DO; Location: [facility] MAIN OR; Service: Pa in [...] current medications. Medications that we give include [place] 10/325 1 p.o. every 4 hours as [...] reviewed, listed controlled substances are consistent with [facility] prescriptions and patient reported use. [...] by private care individuals, community services, or restoration organizations. Appropriate referrals were made at patient [...] and coordination of care with other health nursing care partner and monitoring labs results, other test results and imagin g including [facility] and/or [facility] prescription monitoring systems. This document has been created using [employer] Recognition software and [employer]. The entry has been reviewed for content and accuracy, but there may still exist "sound alike" criminal justice professor word errors and/or unintended additions and deletions. If there is any question please contact the author of the document: Denys Sibley DOElectronically sig marianne by Denys Sibley DO at 05/19/2020 10:22 AM PDTdocumented in this encounter Plan of Treatment +--------+---------+ + + + | Date | Type | Specialty | Care Team | Description | +--------+---------+ + + + | 08/20/ Office | Pain Medicine | Denys Sibley, | | 2019 | Visit | | DO [address] | | | | | | [place] | | | | | | [id number] | | | | | | | | +--------+---------+ + + + | 09/01/ | Office | Cardiology | Monserrat Weems | | | 2019 | Visit | | [address] | | | | | | [address] | | | | | | [place] [address] | | | | | | [phone] | | | | | | | [...]
--- OUTSIDE RECORDS SUMMARY | ~2020-08-10 | XMS | Encounter Summary ---
Demographics + + + | Address | [address] | | | [place] [address] | + + + | Home Phone [...] Providers + +------+ + | Care Metal Stamper Name | Role | Phone | + +------+ + PCP | Unavailable | + +------+ + Encounter Details +--------+ + + + + | Date | Type | Department | Care Team | Description | +--------+ + + + + | 09/07/ | Hospital | [facility] | | | | 1998 - | Encounter | [facility] | | | | | | CENTER [address] | | | | 10/30/ | | [place] | | | | 1998 | | [address] | | | | | | [phone] | | | +--------+ + + + [...] [place] | | | | | | [address] | | | | | | | | +--------+---------+ + + + | 09/01/ | Office | Cardiology | Monserrat Weems | | | 2019 | Visit | | [address] | | | | | | [address] | | | | | | [place] [address] | | | | | | [phone] | | | | | | | | +--------+---------+ + + + documented as of this encounter Visit Diagnoses Not on filedocumented in this encounter"
--- OUTSIDE RECORDS SUMMARY | ~2020-08-10 | XMS | Encounter Summary ---
Demographics + + + | Address | [address] | | | [place] [address] | + + + | Home Phone [...] Team Providers + +------+ + | Care Granulator Name | Role | Phone | + [...] 2013 | | [address]RY [address] | SCHEDULE CHECKER | (Primary Dx) | | | | [address] | | | | | | [place] | | | | | | [address] | | | | | | [phone] | | | +--------+ + + + [...] [place] | | | | | | [address] | | | | | | | | +--------+---------+ + + + | 09/01/ | Office | Cardiology | Monserrat Weems | | | 2020 | Visit | | [address] | | | | | | [address] | | | | | | [place] [address] | | | | | | [phone] | | | | | | | [...] radiculopathy ICD-9 Code 724.4 Ms. Sheikh | [facility] | | Joanne presents to the fluoroscopy suite for a [facility] | | fluoroscopically-guided left L5-S1 transforaminal epidural [...] ST. | [address] | [place], [place] | [phone] | | [facility] | | [address] | | | - IMAGING | | | | + + + + + documented in this encounter Visit Diagnoses + + | Diagnosis | + + | Lumbar radiculopathy - Primary Thoracic or lumbosacral neuritis or radiculitis, | | unspecified | + + documented in this encounter"
--- OUTSIDE RECORDS SUMMARY | ~2020-08-10 | XMS | Encounter Summary ---
Demographics + + + | Address | [address] | | | [place] [address] | + + + | Home Phone [...] Team Providers + +------+ + | Care Rubber Cutting Machine Tender Name | Role | Phone [...] + + + | | Telephone | [facility] | Shay Dietz | Other (Called | | 2012 | | [address] | [address] | patient to discuss | | | | [address] | [address] [place] | options regarding | | | | [place] | [address] | having another | | | | [address] | | injection or having | | | | [phone] | | a MBB or RFA) | [...] [place] | | | | | | [address] | | | | | | | | +--------+---------+ + + + | 09/01/ | Office | Cardiology | Monserrat Weems | | | 2019 | Visit | | [address] | | | | | | [address] | | | | | | [place] [address] | | | | | | [phone] | | | | | | | | +--------+---------+ + + + documented as of this encounter Visit Diagnoses Not on filedocumented in this encounter
--- OUTSIDE RECORDS SUMMARY | ~2020-08-10 | XMS | Encounter Summary ---
Demographics + + + | Address | [address] | | | [place] [address] | + + + | Home Phone [...] Providers + +------+ + | Care Small Boat Engineer Name | Role | Phone | [...] Closed | | Radiology | Diagnoses | Motaghi, | [facility] | | | | | Chronic | Alfredo DO | [address] | | | | | pain | [address] | | | | | disorder | ST | [place], [place] | | | | | Thoracic | [place] | [address] | | | | | neuritis | [address] | Phone: | | | | | Procedures | Phone: | [phone] | | | | | MRI Thoracic | [phone] | Fax: | | | | | Spine wo | Fax: | [phone] | | | | | Contrast | [phone] | | +--------+--------+ + + + + Reason for Visit Diagnostic/Screening (Routine) +--------+--------+ + + + + | Status | Reason | Specialty | Diagnoses / | Referred By | Referred To | | | | | Procedures | Contact | Contact | +--------+--------+ + + + + | Closed | | Radiology | Diagnoses | Motaghi, | [facility] | | | | | Chronic | DO Alfredo | [address] | | | | | pain | [address] | | | | | disorder | ST | [place], [place] | | | | | Thoracic | [place] | [address] | | | | | neuritis | [address] | Phone: | | | | | Procedures | Phone: | [phone] | | | | | MRI Thoracic | [phone] | Fax: | | | | | Spine wo | Fax: | [phone] | | | | | Contrast | [phone] | | +--------+--------+ + + + + Encounter Details +--------+ + + + + | Date | Type | Department | Care Team | Description | +--------+ + + + + | 07/21/ | Hospital | [facility] | Alfredo Casillas DO | Chronic pain | | 2020 | Encounter | [facility] MRI | [address] | disorder; Thoracic | | | | [address] | [place] [address] | neuritis | | | | [place], [place] | [phone] | | | | | [address] | | | | | | [phone] | | | +--------+ + + + [...] + + + +---------+ + + | alendronate | TAKE 1 TABLET BY | | 0 | 05/05/20 | | | (FOSAMAX) 70 mg | MOUTH ONCE A WEEK | | | 20 | | | tablet | | | | | | + + + +---------+ + + | Calcium | Take by mouth. | | 0 | | | | Carb-Cholecalciferol | | | | | | | (CALCIUM 600 + D | [...] tablet by | 180 | 0 | 07/21/20 | | | HYDROcodone-acetamin | mouth every [...] by mouth 2 | | 0 | 04/18/20 | | | (REQUIP) 4 mg tablet | times daily . | | | 20 | | + + + +---------+ + [...] [place] | | | | | | [address] | | | | | | | | +--------+---------+ + + + | 09/01/ | Office | Cardiology | Monserrat Weems | | | 2019 | Visit | | [address] | | | | | | [address] | | | | | | [place] [address] | | | | | | [phone] | | | | | | | [...] + documented in this encounter Results MRI Thoracic Spine wo Contrast (07/21/2020 [...] Procedure Note | + + | Junior, [id number] - 07/25/2020 1:50 PM PDT | | [...] | Diagnosis | + + | Chronic pain disorder Chronic pain syndrome | + + | 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
--- OUTSIDE RECORDS SUMMARY | ~2020-08-10 | XMS | Encounter Summary ---
Demographics + + + | Address | [address] | | | [place] [address] | + + + | Home Phone [...] Providers + +------+ + | Care Assembler Brazer Name | Role | Phone | + [...] Specialty | Pain Medicine | Diagnoses | Laraiveronica, | Motagerlinda, | | | Services | | Intractable | Denys Wallis DO | Alfredo DO | | | Required | | back pain | [address] | [address] | | | | | Lumbar | [address] | [facility], | | | | | region | [place], | [place] [address] | | | | | somatic | [place] [address] | Phone: | | | | | dysfunction | Phone: | [phone] | | | | | S/P | [phone] | Fax: | | | | | insertion of | Fax: | [phone] | | | | | spinal cord | [phone] | | | | | | stimulator [...] + + | 03/17/ | Office | [facility] | Denys Sibley, | Intractable back | | 2019 | Visit | [facility] | DO [address] | pain (Primary Dx); | | | | [address] | [place], [place] | Lumbar region | | | | [address] | [address] | somatic dysfunction; | | | | [place], [place] | | S/P insertion of | | | | [address] | | spinal cord | | | | [phone] | | stimulator; Chronic | | | [...] including but not limited to physical therapy, district manager primary care sales, acupuncture, massage therapy, and nutritional healt h [...] Author Status Filed Medication Agreement Rupa Nye, Mortgage Advisor Active 11/14/2019 1:49 PM Pain Contract- Dr. Sibley 11/14/2019 PEG Pain screening tool (Pain, enjoyment, general activity) Total score: (Printable questionnaires in Bermudian ) Interpretation of Total Score: PEG scores are used to track changes over time. It should de crease after therapy has begun. Last 4 PEG Scores: No flowsheet data found. Opioid Risk Tool (ORT): Total Score Temp: 37.1 C (98.7 F) Temp Source: Oral Pulse: 69 BP: (!) 88/49 SpO2: 97 % (From Chronic Pain tab; printable questionnaires in Bermudian) Interpretation of Total Score: 0 to 3 [...] Arthritis Asthma Asthma Back pain Cancer ([facility]) 2004 breast Cataract Cerebrovascular accident (CVA) ([facility]) no per pt Chronic back pain Chronic back pain Chronic constipation Concussion 07/2015 Preceeded by seizure Constipation COPD (chronic obstructive pulmonary disease) ([facility]) Degenerative disc disease Depression Depression Diabetes mellitus ([facility]) Diabetes mellitus, type 2 (HCC) diet controlled Diabetes type 2, controlled ([facility]) diet controlled Diarrhea Disorder of [...] Scoliosis of lumbar spine 04/17/2014 Seizure ([facility]) one due to meds, two [...] 2004 breast Cataract Cerebrovascular accident (CVA) ([facility]) no per pt Chronic back [...] Scoliosis of lumbar spine 04/17/2014 Seizure ([facility]) one due to meds, two [...] Procedure: KYPHOPLASTY; Surgeon: Alfredo Casillas DO; Location: [facility] MAIN OR; Service: Pa in Management; Laterality: N/A; L5 FRACTURE SURGERY ANKLE HERNIA REPAIR HYSTERECTOMY HYSTERECTOMY LAMINECTOMY N/A 08/03/2019 Procedure: LAMINOTOMY THORACIC / LUMBAR W/ PLACEMENT SPINAL CORD STIMULATOR; Surgeon: Suly Hutchins MD; [facility] OTHER SURGICAL HISTORY EPIDURAL STEROID [...] respiratory symptoms. Patient is not traveled in [facility] in the last 8 to 10 weeks. Current medications that we give her include Robaxin 500 mg 3 times a day, [place] 10/325 1 p .o. every 4 hours [...] are possible. [facility] and benefit. Patient had plain films taken results were not available to us from the [facility]. Patient return this office in 1 month [...] reviewed, listed controlled substances are consistent with [facility] prescriptions and patient reported use. [...] = high risk) Daily Opioid Dose = [place] 10/325 1 p.o. every 4 hours as needed pain Daily Morphine Equivalent Dose (MED) = 60 mg of morphine daily Chronic benzodiazepine use: 1 Pain Agreement (date): {YES/N Visits every: Monthly Drug Screen every: Twice year Next Refill due: 30 days Follow-up: Monthly Alternative treatment modalities where discussed and offered to patient including but not l imited to physical therapy, massage therapy, acupuncture, district manager primary care sales, along with niki mmended psychological counseling, either privately, or in group sessions offered by private care individuals, community services, or adventism organizations. Appropriate referrals were made at patient [...] are noted in men and women. Ma ne men will suffer erectile dysfunction with these [...] coordination of care with other health director of home care hospice and monitoring labs results, other test results and imagin g including [facility] and/or [facility] prescription monitoring systems. This document has been created using [employer] Recognition software and [employer]. The entry has been reviewed for content and accuracy, but there may still exist "sound alike" drop hammer operator helper word errors and/or unintended additions and deletions. [...] [place] | | | | | | [address] | | | | | | | | +--------+---------+ + + + | 09/01/ | Office | Cardiology | Monserrat Weems | | 2019 | Visit | | [address] | | | | | | [address] | | | | | | [place] [address] | | | | | | [phone] | | | | | | | [...]
--- OUTSIDE RECORDS SUMMARY | ~2020-08-10 | XMS | Encounter Summary ---
Demographics + + + | Address | [address] | | | [place] [address] | + + + | Home Phone [...] Providers + +------+ + | Care Land Management Supervisor Name | Role | Phone | [...] + + | 08/16/ | Office | [facility] | Gabi Guzman | S/P insertion of | | 2019 | Visit | 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 Tobacco Use Smoking status: Never Smoker Smokeless [...] Procedure: KYPHOPLASTY; Surgeon: Alfredo Casillas DO; Location: [facility] MA[facility] OR; Service: Pa in Management; [...] COPD (chronic obstructive pulmonary disease) ([facility]) Degenerative disc disease Depression Depression Diabetes mellitus ([facility]) Diabetes mellitus, type 2 ([facility]) diet controlled Diabetes type 2, controlled ([facility]) diet controlled Diarrhea Disorder of [...] of lumbar spine 04/17/2014 Seizure ([facility]) one due to meds, two [...] [place] | | | | | | [id number] | | | | | | | | +--------+---------+ + + + | 09/01/ | Office | Cardiology | Monserrat Weems | | | 2019 | Visit | | [address] | | | | | | [address] | | | | | | [place] [address] | | | | | | [phone] | | | | | | | [...]
--- OUTSIDE RECORDS SUMMARY | ~2020-08-10 | XMS | Encounter Summary ---
Demographics + + + | Address | [address] | | | [place] [address] | + + + | Home Phone [...] Team Providers + +------+ + | Care Instrumentation Supervisor Name | Role | Phone | + +------+ + | Concepción Gallardo NP | PCP | | + +------+ + Encounter Details +--------+ + + + + | Date | Type | Department | Care Team | Description | +--------+ + + + + | 08/05/ | Hospital | [facility] | Spenser, | Foraminal stenosis | | 2013 | Encounter | MED CTR XRAY [address] | [address] | of lumbar region - | | | | [place] | [address] | left L5-S1; Left | | | | [place] [address] | [place] [address] | lumbar | | | | [phone] | [phone] | radiculopathy; DDD | | | | | | (degenerative disc | | | | | Calibration Specialist, Ws | disease), lumbar; | | [...] Miscellaneous Notes Miscellaneous - WILLIAM CARRANZA - 08/19/2014 12:00 AM PDT documented in [...] [place] | | | | | | [address] | | | | | | | | +--------+---------+ + + + | 09/01/ | Office | Cardiology | Monserrat Weems | | | 2019 | Visit | | [address] | | | | | | [address] | | | | | | [place] [address] | | | | | | [phone] | | | | | | | [...] 08/05/2014 Transforaminal Epidural Steroid Injection Diagnosis: | RUPERTOE | | Lumbar radiculopathy ICD-9 Code 724.4 Kori Harshal | [facility] | | Joanne presents to [...] | + + + + + | [facility] | [address] | [place], [place] | [phone] | | [facility] | | [address] | | | - IMAGING | | [...]
--- OUTSIDE RECORDS SUMMARY | ~2020-08-10 | XMS | Encounter Summary ---
Demographics + + + | Address | [address] | | | [place] [address] | + + + | Home Phone [...] Team Providers + +------+ + | Care Dough Mixer Helper Name | Role | Phone | [...] | | | | | lumbar | GOM[place] | | | | | | spinal | [address] | [place], [place] | | | | | stenosis | [place], [place] | [address] | | | | | | [address] | Phone: | | | | | | Phone: | [phone] | | | | | | [phone] | Fax: | | | | | | Fax: | [phone] | | | | | | [phone] | | +--------+--------+ + + + + Encounter Details +--------+---------+ + + + | Date | Type | Department | Care Team | Description | +--------+---------+ + + + | 11/14/ | Office | [facility] | Denys Sibley, | S/P insertion of | | 2019 | Visit | [facility] | DO [address] | spinal cord | | | | [address] | [facility] | stimulator (Primary | | | | [address] | [address] | Dx); Spinal stenosis | | | | [place], [place] | | of lumbosacral | | | | [address] | | region; Lumbar | | | | [phone] | | region somatic | | | [...] medication evaluation follow-up. Subjective: Chronic Pain:Current medication: [place] 1 p.o. every 4 hours as needed pain Kori Mcintosh-Fawthrop presents for chronic pain [...] not limited to physical therapy, care management specialist, acupuncture, massage therapy, and nutritional healt [...] Author Status Filed Medication Agreement Rupa Nye, Check Cashier Active 11/14/2019 1:49 PM Pain Contract- Dr. Sibley 11/14/2019 PEG Pain screening tool (Pain, enjoyment, general activity) Total score: (Printable questionnaires in Mauritian ) Interpretation of Total Score: PEG scores are used to track changes over time. It should de crease after therapy has begun. Last 4 PEG Scores: No flowsheet data found. Opioid Risk Tool (ORT): Total Score Pulse: 72 Resp: 16 BP: 99/58 SpO2: 99 % (From Chronic Pain tab; printable questionnaires in Mauritian) Interpretation of Total Score: 0 to 3 [...] Procedure: KYPHOPLASTY; Surgeon: Alfredo Casillas DO; Location: [facility] MA[facility] OR; Service: Pa in Management; Laterality: N/A; L5 FRACTURE SURGERY ANKLE HERNIA REPAIR HYSTERECTOMY HYSTERECTOMY LAMINECTOMY N/A 08/03/2019 Procedure: LAMINOTOMY THORACIC / LUMBAR W/ PLACEMENT SPINAL CORD STIMULATOR; Surgeon: Suly Hutchins MD; Location: [facility] MAIN OR OTHER SURGICAL HISTORY [...] listed controlled substances are consistent with [facility] prescriptions and patient reported use. Controlled Medications: [...] = high risk) Daily Opioid Dose = [place] 10/325 1 p.o. every 4 hours. Daily [...] off the fentanyl patch. Continues with the [place] 10/325 1 p.o. every 4 h ours [...] physical therapy, massage therapy, acupuncture, care management specialist, along with niki mmended psychological counseling, [...] are noted in men and women. Ma ca men will suffer erectile dysfunction with these [...] and complications with the passage of time. equipment operator intermodal yard use is also associated with depressions, and liver and renal failure. Finally, these medicines are associated with both physical and emotional addiction and can be difficult to stop after taking for only a few weeks. This document has been created using [employer] Voice Recognition software and [employer]. The entry has been reviewed for content and accuracy, but there may still exist "sound alike" ems driver word errors and/or unintended additions and [...] [place] | | | | | | [address] | | | | | | | | +--------+---------+ + + + | 09/01/ | Office | Cardiology | Monserrat Weems | | | 2020 | Visit | | [address] | | | | | | [address] | | | | | | [place] [address] | | | | | | [phone] | | | | | | | [...]
--- OUTSIDE RECORDS SUMMARY | ~2020-08-10 | XMS | Encounter Summary ---
Demographics + + + | Address | [address] | | | [place] [address] | + + + | Home Phone [...] Providers + +------+ + | Care Finger Lift Operator Name | Role | Phone | [...] | | 2012 | | [facility] | [place], [place] | | | | | [address] | [address] | | | | | [address] | | | | | | Riddhi, [address] [place] [address] | | | | | | [place], [place] | | | | | | [address] | | | | | | [phone] | | | +--------+ + + + [...] Miscellaneous Notes Telephone Encounter - Khushbu Cortez, FLANGE TURNER - 09/13/2013 5:00 PM Emma called to tell me that she had another urinary tract infection and her [facility] doctor wants her to come to an appt at [facility] in September versus waiting to come to her 11/14/13 appt. Kori needs help rick dave for a hotel. Her son is about to buy a home, and if he does, she can stay with him. That likely will not happen before 10/10 appt that is currently scheduled. Kori and I made a pl an to talk on 10/02/13 and this will prompt me to make a hotel reservation for her for the ght of 10/10/13. If Kori is able to stay with her son, then I can help her with gas money. Depending on the hotel costs, I may be able to help her with a small amount of gas reimburs ement too. Pt on [facility] financial assistance program at the 100% coverage level. Pt lives on a fixed inc ome and has very little money to spare. Pt told that this is a one time offering. Khushbu Cortez LCSW documented in this encounter Plan of Treatment Not on filedocumented as of this encounter Visit Diagnoses Not on filedocumented in this encounter"
--- OUTSIDE RECORDS SUMMARY | ~2020-08-10 | XMS | Encounter Summary ---
Demographics + + + | Address | [address] | | | [place] [address] | + + + | Home Phone [...] Providers + +------+ + | Care Mechanical Integrity Engineer Name | Role | Phone | + +------+ + | Wendi Aiken | PCP | | + +------+ + Encounter Details +--------+ + + + + | Date | Type | Department | Care Team | Description | +--------+ + + + + | 05/26/ | Hospital | [facility] | Conversion | Pain | | 2018 | Encounter | CONVERSION [address] | Transaction, | | | | | [address] | Provider Unknown | | | | | [place], [place] | [phone] | | | | | [address] | | | | | | [phone] | | | +--------+ + + + [...] [place] | | | | | | [address] | | | | | | | | +--------+---------+ + + + | 09/01/ | Office | Cardiology | Faustina Monserrat | | | 2019 | Visit | | [address] | | | | | | [address] | | | | | | [place] [address] | | | | | | [phone] | | | | | | | [...]
--- OUTSIDE RECORDS SUMMARY | ~2020-08-10 | XMS | Encounter Summary ---
Demographics + + + | Address | [address] | | | [place] [address] | + + + | Home Phone [...] + +------+ + | Care Marketing Project Lead Name | Role | Phone | [...] | Radiology | Diagnoses | Motaghi, | [facility] | | | | | Spinal | Alfredo, DO | [address] | | | | | stenosis of | [address] | | | | | lumbosacral | [address] | [place], [place] | | | | | region | [place] | [address] | | | | | Thoracic | [address] | Phone: | | | | | neuritis | Phone: | [phone] | | | | | Procedures | [phone] | Fax: | | | | | MRI Lumbar | Fax: | [phone] | | | | | Spine wo | [phone] | | | | | | Contrast | | | +--------+--------+ + + + + Reason for Visit Diagnostic/Screening (Routine) +--------+--------+ + + + + | Status | Reason | Specialty | Diagnoses / | Referred By | Referred To | | | | | Procedures | Contact | Contact | +--------+--------+ + + + + | Closed | | Radiology | Diagnoses | Motaghi, | [facility] | | | | | Spinal | Alfredo, DO | [address] | | | | | stenosis of | [address] | | | | | lumbosacral | ST | [place], [place] | | | | | region | [place] | [address] | | | | | Thoracic | [address] | Phone: | | | | | neuritis | Phone: | [phone] | | | | | Procedures | [phone] | Fax: | | | | | MRI Lumbar | Fax: | [phone] | | | | | Spine wo | [phone] | | | | | | Contrast | | | +--------+--------+ + + + + Encounter Details +--------+ + + + + | Date | Type | Department | Care Team | Description | +--------+ + + + + | 07/21/ | Hospital | [facility] | Alfredo Casillas, DO | Spinal stenosis of | | 2020 | Encounter | [facility] | [address] | lumbosacral region; | | | | [address] | [place] [address] | Thoracic neuritis | | | | [place], [place] | [phone] | | | | | [address] | | | | | | [phone] | | | +--------+ + + + [...] | | | | | | 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 Final Report Signed by: Shady Wesley Isaac | | | Sign Date/Time: 07/21/2020 12:34 [...] Procedure Note | + + | Junior, [id number] - 07/21/2020 12:37 PM PDT | | [...] | neurogenic claudication | + + | 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
--- OUTSIDE RECORDS SUMMARY | ~2020-08-10 | XMS | Encounter Summary ---
Demographics + + + | Address | [address] | | | [place] [address] | + + + | Home Phone [...] Team Providers + +------+ + | Care Desktop Architect Name | Role | Phone | + +------+ + | Miquel Calhoun MD | PCP | | + +------+ + Encounter Details +--------+ + + + + | Date | Type | Department | Care Team | Description | +--------+ + + + + | 10/18/ | Hospital | [facility] | Shay Dietz | | | 2013 | Encounter | MED CTR XRAY [address] | T, MD [address] | | | | | [place] | [address] [place], [place] | | | | | [place] [address] | [address] | | | | | [phone] | | | +--------+ + + + [...] | 0 | 07/13/20 | | | ([address]) | | | | 12 | [...] [place] | | | | | | [address] | | | | | | | | +--------+---------+ + + + | 09/01/ | Office | Cardiology | Monserrat Weems | | | 2020 | Visit | | [address] | | | | | | [address] | | | | | | [place] [address] | | | | | | [phone] | | | | | | | [...] Performed At | + + + | [facility] | [place] | | Department [address] [place] [address] [place] | [facility] | | [ rep [address]] [ rep [facility] | | st zip] Signed | - IMAGING | | | | | Patient Name: KORI HARMON | | | Physician: OMID : 1945 Age: 68 Sex: F Unit | | | #: [id number] Exam Date: 10/18/13 Location: | | | [facility] Report #: [id number] Page: | | | %(RAD)RES..mtdd.print.filter("pg") of %(RAD) | | | RES..mtdd.print.filter("tpg") | | | | | | Accession Number: [id number] | | | LUMBAR MEDIAL BRANCH BLOCKS, [...] Transcribed Date/Time: | | | 10/18/2013 19:14 Law Clerk: | | | <<Signature on File>> | | | Shay Mukherjee | | | MD J Luis10/22/13 0756 <Electronically signed by Shay Mukherjee | | | J Luis SALGADO> Shay Dietz MD 10/18/13 1825 | | | Law Clerk: Ajaline Jlyxdypitefpn58/19/13 6134 | | | PROVIDER,UNKNOWN | | + + + + + + + + | Performing | Address | City/State/Zipcode | Phone Number | | Organization | | | | + + + + + | [facility] | [address] | [place] | [phone] | | [facility] | | [address] | | | - IMAGING | | | | + + + + + documented in this encounter Visit Diagnoses Not on filedocumented in this encounter
--- OUTSIDE RECORDS SUMMARY | ~2020-08-10 | XMS | Encounter Summary ---
Demographics + + + | Address | [address] | | | [place] [address] | + + + | Home Phone [...] Providers + +------+ + | Care Film Developing Machine Operator Name | Role | Phone [...] + | 10/29/ | Telephone | [facility] | Sj Valdes MD | Appointment | | 2013 | | NEUROSURGERY [address] | [address] | (Increased | | | | [address] | [place] [address] | pain-requesting | | | | [place] | [phone] | appointmnet sooner) | | | | [address] | | | | | | [phone] | | | +--------+ + + + [...] [place] | | | | | | [address] | | | | | | | | +--------+---------+ + + + | 09/01/ | Office | Cardiology | Monserrat Weems | | | 2020 | Visit | | [address] | | | | | | [address] | | | | | | [place] [address] | | | | | | [phone] | | | | | | | | +--------+---------+ + + + documented as of this encounter Visit Diagnoses Not on filedocumented in this encounter"
--- OUTSIDE RECORDS SUMMARY | ~2020-08-10 | XMS | Encounter Summary ---
Demographics + + + | Address | [address] | | | [place] [address] | + + + | Home Phone [...] Team Providers + +------+ + | Care Diet Kitchen Cook Name | Role | Phone | + +------+ + | Wendi Aiken | PCP | | + +------+ + Encounter Details +--------+ + + + + | Date | Type | Department | Care Team | Description | +--------+ + + + + | 06/07/ | Hospital | [facility] | Conversion | | | 2018 | Encounter | [facility] | Transaction, | | | | | CLINIC [address] | Provider Unknown | | | | | [address] [place], [place] | | | | | | [address] | (Fax) | | | | | [phone] | | | +--------+ + + + [...] (none) Author Type: Registered Nurse Filed: 06/07/18 2985 Date of Service: 06/07/181536 Status: Signed Program Director [employer]: Linn Bills RN (Registered Nurse) Patient call [...] [place] | | | | | | [address] | | | | | | | | +--------+---------+ + + + | 09/01/ | Office | Cardiology | Monserrat Weems | | | 2019 | Visit | | [address] | | | | | | [address] | | | | | | [place] [address] | | | | | | [phone] | | | | | | | [...] | | | Basophils | performed at [facility], [address] | [address] | LAB | | | | [address], | | | | | | [place] [address] | | | | + + + [...] | | | | | performed at [facility], [address] | | | | | | [facility], | | | | | | [place] [address] | | | | + + + [...] + + | Historically converted procedure from [facility] environment | EXTERNAL LAB | + + + + +---------+ + + | Performing | Address | City/State/Zipcode | Phone Number | | Organization | | | | + +---------+ + + | EXTERNAL LAB | | | | + +---------+ + + documented in this encounter Visit Diagnoses Not on filedocumented in this encounter
--- OUTSIDE RECORDS SUMMARY | ~2020-08-10 | XMS | Encounter Summary ---
Demographics + + + | Address | [address] | | | [place] [address] | + + + | Home Phone [...] Providers + +------+ + | Care Product Safety Consultant Name | Role | Phone | [...] | | | [address] [facility] | | | | | | [place], [place] | | | | | | [address] | | | | | | [phone] | | | +--------+ + + + [...] [place] | | | | | | [address] | | | | | | | | +--------+---------+ + + + | 09/01/ | Office | Cardiology | Monserrat Weems | | | 2019 | Visit | | [address] | | | | | | [address] | | | | | | [facility] [place] [address] | | | | | | [phone] | | | | | | | | +--------+---------+ + + + documented as of this encounter Visit Diagnoses Not on filedocumented in this encounter
--- OUTSIDE RECORDS SUMMARY | ~2020-08-10 | XMS | Encounter Summary ---
Demographics + + + | Address | [address] | | | [place] [address] | + + + | Home Phone [...] Team Providers + +------+ + | Care Candy Mixer Name | Role | Phone | + +------+ + | Miquel Calhoun MD | PCP | | + +------+ + Encounter Details +--------+ + + + + | Date | Type | Department | Care Team | Description | +--------+ + + + + | 09/18/ | Hospital | [facility] | Shay Dietz | | | 2013 | Encounter | MED CTR XRAY [address] | T, MD [address] | | | | | [place] | ST [place], [place] | | | | | [place] [address] | [address] | | | | | [phone] | | | +--------+ + + + [...] [place] | | | | | | [address] | | | | | | | | +--------+---------+ + + + | 09/01/ | Office | Cardiology | Monserrat Weems | | | 2020 | Visit | | [address] | | | | | | [address] | | | | | | [place] [address] | | | | | | [phone] | | | | | | | | +--------+---------+ + + + documented as of this encounter Visit Diagnoses Not on filedocumented in this encounter"
--- OUTSIDE RECORDS SUMMARY | ~2020-08-10 | XMS | Encounter Summary ---
Demographics + + + | Address | [address] | | | [place] [address] | + + + | Home Phone [...] Providers + +------+ + | Care Community Development Director Name | Role | Phone | + +------+ + | Romy De La Paz MD | PCP | | + +------+ + Reason for Visit +---------+--------+ + | Reason | Onset | Comments | | | Date | | +---------+--------+ + | Imaging | 02/17/ | MRI order | | | 2020 | | +---------+--------+ + Encounter Details +--------+ + + + + | Date | Type | Department | Care Team | Description | +--------+ + + + + | 02/17/ | Telephone | [facility] | Denys Sibley, | Imaging (MRI order) | | 2020 | | [facility] | DO [address] | | | | | [address] | [place], [place] | | | | | [address] | [address] | | | | | [place], [place] | | | | | | [address] | | | | | | [phone] | | | +--------+ + + + [...] Miscellaneous Notes Telephone Encounter - Ewelina Farrar, Aluminum Sheet Cutter - 02/19/2020 11:52 AM Jose M SINGH faxed the order for the x-ray that Dr. Sibley ordered. There is no order for MRI. I fax ed it to [facility] at [phone]. I called Nathalia back and let a detailed message. elephone Encounter - Mai Polanco I - 02/18/2020 9:00 AM PDTCarol-POA, is calling regarding Imaging (MRI order) and would like a call back. Additional Call Details: Requesting to please send MRI order to [facility] in [facility]- since it is more convenient for patient. Call back with status at: [phone] If this is a symptom based call, was patient offered triage? Not Applicable If this is a symptom based call and you were unable to immediately transfer the call to a jose m franco naphthol soaping machine operator was caller made aware that [...] [place] | | | | | | [address] | | | | | | | | +--------+---------+ + + + | 09/01/ | Office | Cardiology | Monserrat Weems | | | 2019 | Visit | | [address] | | | | | | [address] | | | | | | [place] [address] | | | | | | [phone] | | | | | | | | +--------+---------+ + + + documented as of this encounter Visit Diagnoses Not on filedocumented in this encounter"
--- OUTSIDE RECORDS SUMMARY | ~2020-08-10 | XMS | Encounter Summary ---
Demographics + + + | Address | [address] | | | [place] [address] | + + + | Home Phone [...] Providers + +------+ + | Care Occupational Health Nurse Manager Name | Role | Phone | + +------+ + | Wendi Aiken | PCP | | + +------+ + Encounter Details +--------+ + + + + | Date | Type | Department | Care Team | Description | +--------+ + + + + | 05/26/ | Hospital | [facility] | Conversion | Pain | | 2018 | Encounter | CONVERSION [address] | Transaction, | | | | | [address] | Provider Unknown | | | | | [place], [place] | [phone] | | | | | [address] | | | | | | [phone] | | | +--------+ + + + [...] [place] | | | | | | [address] | | | | | | | | +--------+---------+ + + + | 09/01/ | Office | Cardiology | Faustina Monserrat | | | 2019 | Visit | | [address] | | | | | | [address] | | | | | | [place] [address] | | | | | | [phone] | | | | | | | [...]
--- OUTSIDE RECORDS SUMMARY | ~2020-08-10 | XMS | Encounter Summary ---
Demographics + + + | Address | [address] | | | [place] [address] | + + + | Home Phone [...] Team Providers + +------+ + | Care Knit Goods Press Hand Name | Role | Phone | [...] for | | 2016 | | at [facility] [address] | [address] | new pt appt) | | | | Brittany Tate for | [address] [place], | | | | | [facility], | [place] [address] | | | | | [facility] | [phone] | | | | | Floor [place], [place] | | | | | | [address] | | | | | | [phone] | | | +--------+ + + + [...]
--- OUTSIDE RECORDS SUMMARY | ~2020-08-10 | XMS | Encounter Summary ---
Demographics + + + | Address | [address] | | | [place] [address] | + + + | Home Phone [...] Team Providers + +------+ + | Care Emt Basic Name | Role | Phone | + +------+ + PCP | Unavailable | + +------+ + Encounter Details +--------+ + + + + | Date | Type | Department | Care Team | Description | +--------+ + + + + | 07/31/ | Hospital | [facility] | Raul Baca | | | 2005 - | Encounter | [facility] | MD [address] | | | | | TH ADULT [address] | [address] [facility], | | | 08/07/ | | 8th [place], [place] | [place] [address] | | | 2004 | | [address] | [phone] | | | | | [phone] | | | +--------+ + + + [...] + + documented as of this encounter H&P Notes Raul Baum MD - 09/05/2013 8:02 PM PSTPATIENT NAME: Kori Mcintosh DATE OF ADMISSION: 07/31/2005 AGE/SEX: 60/F : 1945 IDENTIFICATION: Kori is a 60-year-old, female with a history of bipol ar affective disorder, type 2. She was admitted to the [facility] for worsening of her depressive symptoms and suicidal ideation. She was admitted on a voluntary basis. She appears to be a fair history. CHIEF COMPLAINT: The patient stated "I'm getting more and more depressed each day. I jus t want to be in the hospital before it get too bad." HISTORY OF PRESENT ILLNESS: According to the patient, she has been in a [facility] [place] in January 2005 for depression. Since that time, the patient states that her work has be en a little bit stressful, and as a result she had a few days of not being able to sleep, a nd after that became more depressed. Over the past three weeks, her depression had progre ssively declined (?), to the point where she is having passive suicidal ideation, but no pl an or intent. She also complains of feeling hopeless and helpless. Her depression was ran ked as 7--8/10, with 10 being the worse she every felt. Her sleep has been poor. She has difficulty with initial and middle insomnia. She also complains of hyper?? and has gained 40 pounds in the last three months. Her energy level is low at this time. She denies any middle-aged. She denies any psychotic symptoms. She denies any anxiety symptoms at this time. SUBSTANCE ABUSE HISTORY: The patient has a history or alcohol abuse, but has been sober f or many years. She attends Alcohols Anonymous on a regular basis. PAST PSYCHIATRIC HISTORY: The patient reports that she has had more than 20 previous psyc hiatric hospitalizations, and she has made more than 20 suicide attempts. She currently fo llows with Dr. Pham in [place]. She has tried multiple antidepressants in the past. PAST MEDICAL HISTORY: 1. Asthma. 2. Hypercholesterolemia. 3. CRD. 4. Status post tubal ligation. ALLERGIES: Bee stings. CURRENT MEDICATIONS: 1. Requip 25 mg p.o. ?? q.d. 2. Lamictal 350 mg p.o. q.h.s. 3. Seroquel 100 mg p.o. q.h.s. 4. Trazodone 100 mg p.o. q.h.s. 5. Cymbalta 60 mg p.o. q.h.s. 6. Estradiol 1 mg p.o. q.d. 7. Levothyroxine 100 mcg p.o. q.d. 8. Vitamins q.d. 9. ??, one p.o. q.d. MCINTOSHDAMION FLAQUITA Suarez [id number] 08/07/05 PSYCHOLOGICAL REPORT HISTORY & PHYSICAL Rep 1002-0 004 E-Sign: [facility] THIS REPORT IS CONFIDENTIAL AND NOT TO BE RELEASED WITHOUT PROPER AUTHORIZATION. [facility] 10. Aspirin 81 mg p.o. q.d. 11. Calcium citrate with vitamin D, one p.o. q.d. FAMILY HISTORY: The patient reports that she has several relatives with alcohol abuse pro blems. Otherwise, no psychiatric conditions noted. SOCIAL HISTORY: The patient was born and raised in [place] and spent some time in [place]. Her highest level of eduction was high school. The patient was four years ago. S he lives alone in her own home. 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 She receives disability and [employer]. ASSETS: The patient is still partially gainfully employed. She is intelligent. PHYSICAL EXAMINATION: Please refer to the emergency room note for details. The patient marcos s been medically cleared by the emergency room physician. MENTAL STATUS EXAMINATION: The patient is a moderately obese, female who appear s calm, cooperative, and pleasant. She appears her stated age. She was moderately groomed . Psychomotor activity was mildly decreased. She maintained good eye contact during the i nterview. Speech was of regular rate and rhythm and normal volume. Flow of thought was m ostly logical, sequential, and goal oriented. As to content of thought, the patient endors es passive suicidal ideation, but denies any homicidal ideation, auditory hallucinations, v isual hallucinations, or delusions. Mood was described as "depressed." Affect appeared res tricted and congruent to mood. Insight and judgment appear fair. The patient has good in sight into there psychiatric condition. She also has been compliant with treatment. Senso rium/intelligence exam reveals the patient to be alert and oriented x 3. She does not appe ar to have any problem with short-term or long-term memory. She appears to have a good gen [facility] of knowledge. LABORATORY DATA: Complete blood count mostly within normal limits. Electrolytes are pendi ng. DIAGNOSTIC FORMULATION: AXIS I: Bipolar affective disorder, type 2, with depressive symptoms. History of alcohol abuse. Rule out depression, not otherwise specified. AXIS II: Deferred. AXIS Asthma. III: Hypercholesterolemia. CRD. Status post tubal ligation. AXIS IV: Financial problems. AXIS V: GAF 45. DAMION MCINTOSH FLAQUITA Erick [id number] 08/07/05 PSYCHOLOGICAL REPORT HISTORY & PHYSICAL Rep 1002-0 004 E-Sign: [facility] THIS REPORT IS CONFIDENTIAL AND NOT TO BE RELEASED WITHOUT PROPER AUTHORIZATION. [facility] ASSESSMENT: Kori is a 60-year-old, female with a history of bipolar a ffective disorder. She has a past history of abusing alcohol, but has been sober for many years. The patient reports that she has never had a full-blown manic episode in the past. She was not sleeping for seven days or more, but she usually gets tired. Otherwise, the p atient stated that she mostly experiences problems with depression. The patient's stated that she can tell that she's starting to become more and more depressed, with passive suici gonzalez ideation. She felt she would be safer in the hospital to receive treatment, rather dimitry n get too sick and not be able to get to the hospital. At this time, the patient does not want to change any of her medications. She would like to speak to Dr. Pham before making any changes. PLAN: 1. We'll continue the patient on her current medications, as noted above. 2. We'll continue to monitor the patient for mood symptoms. If they continue, we'll consider adjusting her antidepressant. I discussed Cymbalta with the patient, with its benefits and the risk of increasing the dose. The patient is aware of these issues. 3. The expected length of stay for the patient will be approximately 7 days. Raul Baum MD P JHOANA/ricardo #[id number] cc: Raul quezada MD Digitally authenticated 06/26/08 1739 Raul Baum MD DAMION MCINTOSH [id number] 08/07/05 PSYCHOLOGICAL REPORT HISTORY & PHYSICAL Rep 1002-0 004 E-Sign: [facility] THIS REPORT IS CONFIDENTIAL AND NOT TO BE RELEASED WITHOUT PROPER AUTHORIZATION.Electronica lly signed by Raul Baum MD at 09/07/2013 4:33 PM PSTdocumented in this encounter Plan of [...] [place] | | | | | | [address] | | | | | | | | +--------+---------+ + + + | 09/01/ | Office | Cardiology | [facility] | | | 2019 | Visit | | [address] | | | | | | [address] | | | | | | [place] [address] | | | | | | [phone] | | | | | | | | +--------+---------+ + + + documented as of this encounter Visit Diagnoses Not on filedocumented in this encounter
--- OUTSIDE RECORDS SUMMARY | ~2020-08-10 | XMS | Encounter Summary ---
Demographics + + + | Address | [address] | | | [place] [address] | + + + | Home Phone [...] Providers + +------+ + | Care Automobile Mechanic Name | Role | Phone | [...] n not | | | Paroxysmal | Zuleyka DO | Medicine | | Required | | | atrial | [address] | | | | | fibrillation | [address] | [address] | | | | | (HCC) | [address] | [place], [place] | | | | | Procedures | [place], [place] | [address] | | | | | [place] Nuclear | [address] | Phone: | | | | | Stress Test | Phone: | [phone] | | | | | (Exercise) | [phone] | Fax: | | | | | | Fax: | [phone] | | | | | | [phone] | | + +--------+ + + + [...] | fibrillation | [address] | [address] | | | | | ([facility]) | [place], | [place], [place] | | | | | Procedures | [place] | [address] Phone: | | | | | consult | [address] | [phone] | | | | | | Phone: | Fax: | | | | | | [phone] | [phone] | | | | | | Fax: | | | | | | | [phone] | | + +--------+ + + + + Encounter Details +--------+---------+ + + + | Date | Type | Department | Care Team | Description | +--------+---------+ + + + | 02/27/ | Office | [facility] | Zuleyka Castillo DO | Palpitations | | 2020 | Visit | CARDIOLOGY [place] | [address] | (Primary Dx); | | | | [address] | [place] [address] [place], [place] | Paroxysmal atrial | | | | [address] | [address] | fibrillation (HCC) | | | | [place] | | | | | | [address] | | | | | | [phone] | | | +--------+---------+ + + + [...] documented in this encounter Progress Notes Zuleyka Castilol DO - 02/28/2020 1:00 PM PDT [facility] Cardiology Cardiology Consult Note Reason for Consultation: [...] was started on Eliquis 5 mg by [facility] twice daily as well as metoprolol tartrate [...] Scoliosis Scoliosis of lumbar spine 04/17/2014 Seizure ([facility]) one due to meds, two [...] Alfredo Casillas DO; Location: [facility] MAIN OR; Service: Pa in Management; Laterality: N/A; L5 FRACTURE SURGERY ANKLE HERNIA REPAIR HYSTERECTOMY HYSTERECTOMY LAMINECTOMY N/A 08/03/2019 Procedure: LAMINOTOMY THORACIC / LUMBAR W/ PLACEMENT SPINAL CORD STIMULATOR; Surgeon: Suly Hutchins MD; Location: [facility] OTHER SURGICAL HISTORY EPIDURAL STEROID [...] level: Not on file Occupational History Occupation: [employer] Social Needs Financial resource strain: Not on [...] file Gets together: Not on file Attends catholic service: Not on file Active member of [...] atrial fibrillation while she was in the [facility] with pneumonia. She has had a few brief episodes since that hospitalization. She has bee n started on anticoagulation with Xarelto for a [id number] score of 2. She reports that this medication was too expensive for her. We have her Rx savings info for Eliquis 5m po bid. Chadd quiroz has had some issues with low blood pressure on metoprolol tartrate. We will switch over t o metoprolol succinate at a lower dose. If blood pressure continues to be an issue, may con shorer switching over to digoxin. She had a [...] [place] | | | | | | [address] | | | | | | | | +--------+---------+ + + + | 09/01/ | Office | Cardiology | [facility]errat Weems | | | 2019 | Visit | | [address] | | | | | | [address] | | | | | | [place] [address] | | | | | | [phone] | | | | | | | [...] MD | | | | | | ([id number]) on 03/04/2020 | | | | | [...]
--- OUTSIDE RECORDS SUMMARY | ~2020-08-10 | XMS | Encounter Summary ---
Demographics + + + | Address | [address] | | | [place] [address] | + + + | Home Phone [...] Providers + +------+ + | Care Manager Hospitality Name | Role | Phone | + +------+ + | Miquel Calhoun MD | PCP | | + +------+ + Reason for Visit +--------+--------+ + | Reason | Onset | Comments | | | Date | | +--------+--------+ + | Other | 12/17/ | | | | 2013 | | +--------+--------+ + Encounter Details +--------+ + + + + | Date | Type | Department | Care Team | Description | +--------+ + + + + | 12/17/ | Telephone | [facility] [place] | Emerita Morrow, | Other | | 2013 | | PHYSIATRY [address] | [address] | | | | | [address] | | | | | | [place] | | | | | | [address] | | | | | | [phone] | | | +--------+ + + + [...] Miscellaneous Notes Telephone Encounter - Emerita Morrow Master of [employer] - 12/17/2013 11:27 AM PSTPatient ca lled complaining of pain, states she has been falling a lot due to new issue with her ankle. She was informed that she would need to be evaluated in the office in order for the doctor to give her any recommendation. Patient scheduled for a follow up visit with Dr. Dietz on 12/19/13. 11:2 7 AM PSTdocumented in this encounter Plan of [...] [place] | | | | | | [address] | | | | | | | | +--------+---------+ + + + | 09/01/ | Office | Cardiology | Monserrat Weems | | | 2019 | Visit | | [address] | | | | | | [address] | | | | | | [place] [address] | | | | | | [phone] | | | | | | | | +--------+---------+ + + + documented as of this encounter Visit Diagnoses Not on filedocumented in this encounter"
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
--- OUTSIDE RECORDS SUMMARY | ~2020-08-10 | XMS | Encounter Summary ---
Demographics + + + | Address | [address] | | | [place] [address] | + + + | Home Phone [...] Providers + +------+ + | Care Game Designer Name | Role | Phone | [...] + + | 07/26/ | Telephone | [facility] | Darrin Hoyos | Records Request (MRI | | 2013 | | NEUROSURGERY [address] | [address] | OF LUMBAR SPINE) | | | | [address] | [address] [place], [place] | | | | | [place], [place] | [address] | | | | | [address] | | | | | | [phone] | | | +--------+ + + + [...] 11:22 AM PDTImaging is available on I Crossbar. Please review. Telephone Encounter - Cindy Shaikh - 07/26/2014 12:15 PM PDTCalled [facility] and request[facility] that they load the 07/17/14 MRI of the lumbar spine to I-Ore[facility]. Film room alpine patroller stated that they also have a thoracic [...] [place] | | | | | | [id number] | | | | | | | | +--------+---------+ + + + | 09/01/ | Office | Cardiology | [facility] Weems | | | 2019 | Visit | | [address] | | | | | | [address] | | | | | | [facility]NOTE [facility] [place] [address] | | | | | | [phone] | | | | | | | | +--------+---------+ + + + documented as of this encounter Visit Diagnoses Not on filedocumented in this encounter"
--- OUTSIDE RECORDS SUMMARY | ~2020-08-10 | XMS | Encounter Summary ---
Demographics + + + | Address | [address] | | | [place] [address] | + + + | Home Phone [...] Team Providers + +------+ + | Care Architect Naval Name | Role | Phone | + +------+ + | Concepción Gallardo NP | PCP | | + +------+ + Reason for Visit + +--------+ + | Reason | Onset | Comments | | | Date | | + +--------+ + | Injections | 06/21/ | | | | 2016 | | + +--------+ + Encounter Details +--------+ + + + + | Date | Type | Department | Care Team | Description | +--------+ + + + + | 06/21/ | Telephone | [facility] | [place] | Jabari | | 2016 | | PHYSIATRY [address] | [address] | | | | | [address] | [address] | | | | | [place], [place] | [place] [address] | | | | | [address] | [phone] | | | | | [phone] | | | +--------+ + + + [...] PDTPatient scheduled for . elephone Encounter - Christiana Padilla - 06/21/2016 8:43 AM PDTPatient wants to [...] [place] | | | | | | [address] | | | | | | | | +--------+---------+ + + + | 09/01/ | Office | Cardiology | Monserrat Weems | | 2019 | Visit | | [address] | | | | | | [address] | | | | | | [place] [address] | | | | | | [phone] | | | | | | | | +--------+---------+ + + + documented as of this encounter Visit Diagnoses Not on filedocumented in this encounter"
--- OUTSIDE RECORDS SUMMARY | ~2020-08-10 | XMS | Encounter Summary ---
Demographics + + + | Address | [address] | | | [place] [address] | + + + | Home Phone [...] Team Providers + +------+ + | Care Med Spa Manager Name | Role | Phone | [...] | | | | | Chronic | Alfredo, DO | [address] | | | | | pain | [address] | | | | | disorder | [address] | [place], [place] | | | | | Thoracic | [place] | [address] | | | | | neuritis | [address] | Phone: | | | | | Procedures | Phone: | [phone] | | | | | MRI Thoracic | [phone] | Fax: | | | | | Spine wo | Fax: | [phone] | | | | | Contrast | [phone] | | +--------+--------+ + + + + Diagnostic/Screening (Routine) +--------+--------+ + + + + | Status | Reason | Specialty | Diagnoses / | Referred By | Referred To | | | | | Procedures | Contact | Contact | +--------+--------+ + + + + | Closed | | Radiology | Diagnoses | Motaghi, | [facility] | | | | | Spinal | Alfredo, DO | [address] | | | | | stenosis of | [address] | | | | | lumbosacral | ST | [place], [place] | | | | | region | [place] | [address] | | | | | Thoracic | [address] | Phone: | | | | | neuritis | Phone: | [phone] | | | | | Procedures | [phone] | Fax: | | | | | MRI Lumbar | Fax: | [phone] | | | | | Spine wo | [phone] | | | | | | Contrast | | | +--------+--------+ + + + + Encounter Details +--------+ + + + + | Date | Type | Department | Care Team | Description | +--------+ + + + + | 07/11/ | Orders Only | [facility] | Alfredo Casillas DO | Chronic pain | | 2020 | | [facility] | [address] | disorder (Primary | | | | [address] | [place] [address] | Dx); Spinal stenosis | | | | [address] [facility], | [phone] | of lumbosacral | | | | [place] [address] | | region; Thoracic | | | | [phone] | | neuritis | +--------+ + + + + Social [...] [place] | | | | | | [address] | | | | | | | | +--------+---------+ + + + | 09/01/ | Office | Cardiology | Faustina Monserrat | | | 2019 | Visit | | [address] | | | | | | [address] | | | | | | [place] [address] | | | | | | [phone] | | | | | | | | +--------+---------+ + + + documented as of this encounter Results MRI Thoracic Spine wo [...] Procedure Note | + + | Junior, [id number] - 07/25/2020 1:50 PM PDT | | [...] Procedure Note | + + | Junior, [id number] - 07/21/2020 12:37 PM PDT | | [...] | | Final Report Signed by: Shady Wesley, Contreras | | Sign Date/Time: 07/21/2020 12:34 PM [...] | + + | Chronic pain disorder - Primary Chronic pain syndrome | + + | Spinal stenosis of lumbosacral region Spinal stenosis, lumbar region, without | | neurogenic claudication | + + | 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
--- OUTSIDE RECORDS SUMMARY | ~2020-08-10 | XMS | Encounter Summary ---
Demographics + + + | Address | [address] | | | [place] [address] | + + + | Home Phone [...] Team Providers + +------+ + | Care Bar Attendant Name | Role | Phone | + +------+ + PCP | Unavailable | + +------+ + Encounter Details +--------+ + + + + | Date | Type | Department | Care Team | Description | +--------+ + + + + | 12/08/ | Hospital | [facility] | | | | 1994 - | Encounter | MED [facility] GENER[facility] | | | | | | CONV DEPT [address] | | | | 12/18/ | | [place], | | | | 1992 | | [place] [address] | | | | | | [phone] | | | +--------+ + + + [...] [place] | | | | | | [address] | | | | | | | | +--------+---------+ + + + | 09/01/ | Office | Cardiology | Monserrat Weems | | | 2019 | Visit | | [address] | | | | | | [address] | | | | | | [place] [address] | | | | | | [phone] | | | | | | | | +--------+---------+ + + + documented as of this encounter Visit Diagnoses Not on filedocumented in this encounter"
--- OUTSIDE RECORDS SUMMARY | ~2020-08-10 | XMS | Encounter Summary ---
Demographics + + + | Address | [address] | | | [place] [address] | + + + | Home Phone [...] Providers + +------+ + | Care Cleaner And Presser Name | Role | Phone | + +------+ + | Miquel Calhoun MD | PCP | | + +------+ + Encounter Details +--------+ + + + + | Date | Type | Department | Care Team | Description | +--------+ + + + + | 11/14/ | Hospital | [facility] | Jazmín Riggins MD | Hypothyroid; History | | 2014 - | Encounter | [facility] | [address] [facility] | of oral aphthous | | | | CLINICAL DECISION | [address] [place], | ulcers; Anemia, | | 11/19/ | | [address] | [place] [address] | unspecified; | | 2013 | | [place], [place] | [phone] | Aspiration pneumonia | | | | [address] | | ([facility]); COPD | | | | [phone] | | (chronic obstructive | | | | | | pulmonary disease) | | | | | | ([facility]); Generalized | | | | [...] 1140 Date of Service: 11/19/131920 Status: Signed Electrical Logger: Fran Eddy MD (Physician) Related Notes: Original Note by Fran Eddy MD (Physician) filed at 11/20/13 1418 Patient ID: Ronald Torrestyfawthrop [id number] 68 y.o. 1945 Admit date: 11/14/2013 Discharge [...] - 99 mg/dL Final Testing performed at [address] [address] BUN Date Value Range Status 11/19/2013 12 8 - 25 mg/dL Final Testing performed at [address] [address] CREATININE Date Value Range Status 11/19/2013 0.80 0.50 - 1.00 mg/dL Final Testing performed at [address] [address] BUN/CREAT Date Value Range Status 11/19/2013 15 Final Testing performed at [address] [address] TOTAL PROTEIN Date Value Range Status 11/17/2013 5.2* 6.3 - 8.2 g/dL Final Testing performed at [address] [address] GLOBULIN Date Value Range Status 11/17/2013 2.1 1.3 - 4.9 g/dL Final Testing performed at [address] [address] TBIL Date Value Range Status 11/17/2013 0.6 0.1 - 1.5 mg/dL Final Testing performed at [facility], [address] [place] [address] ALT Date Value Range Status 11/17/2013 21 10 - 65 U/L Final Testing performed at [facility], [address] [place] [address] AST Date Value Range Status 11/17/2013 19 10 - 45 U/L Final Testing performed at [address] [address] SODIUM Date Value Range Status 11/19/2013 133* 135 - 143 mmol/L Final Testing performed at [address] [address] POTASSIUM Date Value Range Status 11/19/2013 3.9 3.5 - 4.9 mmol/L Final Testing performed at [address] [address] CHLORIDE Date Value Range Status 11/19/2013 101 99 - 109 mmol/L Final Testing performed at [address] [address] CO2 Date Value Range Status 11/19/2013 24 23 - 32 mmol/L Final Testing performed at [address] [address] ANION GAP AGAP Date Value Range Status 11/19/2013 12 5 - 20 mmol/L Final Testing performed at [address] [address] X-ray Lumbar Spine Limited 2-3 Views 11/18/2013 [...] the emergency department, who was admitted to [facility] on November 14, 2013, when she was found to be unresponsive by EMS and thought to be secondary to Flexeril overdose and alcohol intoxication, and alcohol level was more than 300 , and patient was found to be hypotensive. Hence, she was intubated and brought to the [facility] from outside hospital and was started on dopamine and norepinephri ne and Tylenol level was checked, which was 44, for which she was put on acetylcysteine prot ocol and was transferred to medical floor on November 15, 2013, and Dr. Moore from psychia tric service was consulted after patient stabilized and she was taken to [facility] under Dr. Diana's care. 2. Chronic back pain, for which patient was discharged to [facility] on [facility] in p.r.n. 3. Aphthous ulcers. [...] file for this visit. Miquel Calhoun MD [address] [place] [id number] In 1 week Signed: FRAN EDDY 11/19/2013 [...] 11/19/132053 Date of Service: 11/19/132029 Status: Signed Electrical Logger: Ruby Chávez RN (Registered Nurse) Pt currently on psychiatric hold; Transport here to take pt to [facility]. Pt complains of yessica n; Given Ultram (See MAR) VSS; Afebrile; No SOB. Nurse to nurse given to [facility]. Pt dc'd by bebo. Ruby Chávez 11/19/2013 Fran Porter MD - 11/19/2013 3:24 PM PSTFormatting of this note might be different from the or iginal. Progress Notes by Fran Eddy MD at 11/19/13 1524 Author: Fran Eddy MD Service: Hospitalist Author Type: Physician Filed: 11/19/131535 Date of Service: 11/19/131523 Status: Addendum Electrical Logger: Fran Eddy MD (Physician) Related Notes: Original Note by Fran Eddy MD (Physician) filed at 11/19/13 1535 [facility] Service: Hospitalist Progress Note Ronald Torrestyfawthrop 68 y.o. [id number] 306/306-2 female [facility] Day: LOS: 5 days Patient Summary: .A 68-year-old female with past medical history of depression with m ultiple suicide attempts in the past, history of COPD, which she attributes to paint inhalat ion, history of anxiety, restless leg syndrome, GERD, diabetes mellitus type 2, diet control led, hypothyroidism, who was admitted to [facility] on the November 14, when the patient was found to be unresponsive by EMS and thought to be secondary to Fle xeril overdose and alcohol intoxication as her alcohol level was more than 300. The patient was found to be hypertensive, hence she was intubated and brought to the [facility] where she was put on dopamine, [...] SpO2: [95 %-99 %] 97 % (11/19 1442) Weight: [66.3 kg (146 lb 2.6 oz)] [...] by PCR (TAT 3 hr in house) [[id number]] Collected:11/19/13 0703 Specimen Information:Stool / Stool Updated:11/19/13806 Toxigenic C Difficile NEGATIVE 027 NAP1 BI 027 NAP1 BI PRESUMPTIVE NEGATIVE Magnesium [[id number]] Collected:11/19/13424 MAGNESIUM 2.2 mg/dL Updated:11/19/13806 Phosphorus [[id number]] Collected:11/19/13424 PHOSPHORUS 4.0 mg/dL Updated:11/19/13806 Basic metabolic panel [[id number]] (Abnormal) Collected:11/19/13424 Specimen Information:Blood Updated:11/19/13 0544 SODIUM 133 (L) mmol/L POTASSIUM 3.9 mmol/L CHLORIDE 101 mmol/L CO2 24 mmol/L ANION GAP AGAP 12 mmol/L GLUCOSE 108 (H) mg/dL BUN 12 mg/dL CREATININE 0.80 mg/dL BUN/CREAT 15 CALCIUM 9.2 mg/dL EGFR >60 mL/min/1.73m2 CBC w/auto diff (reflex to manual) [[id number]] (Abnormal) Collected:11/19/13424 Specimen Information:Blood Updated:11/19/13 0540 WBC [...] K/uL MORPHOLOGY Fecal occult blood (in house) [[id number]] Collected:11/19/13 0146 Specimen Information:Stool / Stool Updated:11/19/13 0217 Fecal Occult Blood NEGATIVE Urine culture [[id number]] Collected:11/17/13 1013 Specimen Information:Urine / Urine, Catheter Updated:11/18/13 1710 Specimen Description CATHETERIZED URINE Specimen Description Result: Testing performed [place] [facility] [facility];[place] [address] CULTURE NO GROWTH CULTURE Result: Testing performed at [facility], [address] [place] [address] REPORT STATUS 11/18/2013 FINAL Blood culture, 1 of 2 [[id number]] Collected:11/17/13 1042 Specimen Information:Blood / Blood Updated:11/18/13 1451 Specimen Description BLOOD Specimen Description Result: Testing performed at [facility];[address] [place] [address];[place] [address] SPECIAL REQUESTS Result: REPEAT TEST USING ALTERNATE ASSAYED CONTROL MATERIAL SPECIAL REQUESTS Result: Testing performed at [facility];[address] [place] [address];[place] [address] CULTURE NO GROWTH AT THIS TIME CULTURE Result: Testing performed at [facility], [address] [place] [address] REPORT STATUS PENDING Blood culture, 2 of 2 [[id number]] Collected:11/17/13 1050 Specimen Information:Blood / Blood Updated:11/18/13 1451 Specimen Description BLOOD Specimen Description Result: Testing performed at [facility];[address] [place] [address];[place] [address] SPECIAL REQUESTS PICC LINE SPECIAL REQUESTS Result: Testing performed at [facility];[address] [place] [address];[place] [address] CULTURE NO GROWTH AT THIS TIME CULTURE Result: Testing performed at [facility], [address] [place] [address] REPORT STATUS PENDING Sputum culture [[id number]] Collected:11/17/13 1153 Specimen Information:Sputum / Sputum Updated:11/18/13 1428 Specimen Description SPUTUM Specimen Description Result: Testing performed at [facility];[address] [place] [address] GRAM STAIN GREATER THAN 10 WBCS/LPF GRAM STAIN LESS THAN 10 SEC/LPF GRAM STAIN NO ORGANISMS SEEN GRAM STAIN Result: Testing performed at [facility], [address] [place] [address] CULTURE 1+ NORMAL UPPER RESPIRATORY CURTIS CULTURE Result: Testing performed at [facility], [address] [place] [address] REPORT STATUS PENDING Magnesium [[id number]] Collected:11/18/13 0600 Specimen Information:Blood Updated:11/18/13 1104 MAGNESIUM 2.1 mg/dL Phosphorus [[id number]] Collected:11/18/13 0600 Specimen Information:Blood Updated:11/18/13 1104 PHOSPHORUS 3.8 mg/dL Basic metabolic panel [[id number]] (Abnormal) Collected:11/18/13 0600 Specimen Information:Blood Updated:11/18/13 0716 SODIUM 135 mmol/L POTASSIUM 4.2 mmol/L CHLORIDE 104 mmol/L CO2 24 mmol/L ANION GAP AGAP 11 mmol/L GLUCOSE 110 (H) mg/dL BUN 11 mg/dL CREATININE 0.73 mg/dL BUN/CREAT 15 CALCIUM 9.0 mg/dL EGFR >60 mL/min/1.73m2 TSH [[id number]] Collected:11/18/13 06 Specimen Information:Blood Updated:11/18/13 0713 TSH 4.28 uIU/mL CBC w/auto diff (reflex to manual) [[id number]] (Abnormal) Collected:11/18/13 06 Specimen Information:Blood Updated:11/18/13 0647 [...] K/uL BASOPHILS ABS 0.0 K/uL Urine culture [[id number]] Collected:11/16/13 0951 Specimen Information:Urine / Urine, Clean Catch Updated:11/17/13 1618 Specimen Description CLEAN CATCH URINE Specimen Description Result: Testing performed at [facility] [place] [address] CULTURE NO GROWTH CULTURE Result: Testing performed at [facility], [address] [place] [address] REPORT STATUS 11/17/2013 FINAL Magnesium [[id number]] (Abnormal) Collected:11/16/13 0407 Specimen Information:Blood Updated:11/17/13 1141 MAGNESIUM 1.6 (L) mg/dL Phosphorus [[id number]] (Abnormal) Collected:11/16/13 0407 Specimen Information:Blood Updated:11/17/13 1141 PHOSPHORUS 1.7 (L) mg/dL Iron panel [[id number]] (Abnormal) Collected:11/17/13556 Specimen Information:Blood Updated:11/17/13 0718 IRON 31 ug/dL TIBC 155 (L) ug/dL IRON % SAT 20 % Vitamin B12 [[id number]] Collected:11/17/13556 Specimen Information:Blood Updated:11/17/1311 VITAMIN B12 417 pg/mL Folate [[id number]] Collected:11/17/13556 Specimen Information:Blood Updated:11/17/1311 FOLATE 17.7 ng/mL Ferritin [[id number]] Collected:11/17/13556 Specimen Information:Blood Updated:11/17/1311 FERRITIN 140 ng/mL Comprehensive metabolic panel [[id number]] (Abnormal) Collected:11/17/13556 Specimen Information:Blood Updated:11/17/13 0710 SODIUM [...] mL/min/1.73m2 CBC w/auto diff (reflex to manual) [[id number]] (Abnormal) Collected:11/17/13556 Specimen Information:Blood Updated:11/17/13 0641 WBC [...] 11/15/2013 Ct Head Without Contrast 11/14/2013 RONALD CARRIE [address] HEAD WO [...] AM X-ray Chest Ap Only 11/14/2013 RONALD WASHUBRNHROP XR CHEST 1 VIEW 11/14/2013 11:33 PM [...] Case Management by ANGELO Lujan at 11/19/13 7390 Author: ANGELO Lujan Service: (none) Author Type: System Consultant Filed: 11/19/13 1808 Date of Service: 11/19/13 5974 Status: Signed Electrical Logger: ANGELO Lujan (System Consultant) JOVITA contacted Crisis Response Unit to inform [facility] that pt is now medically clear for MH eval uation. A DMHP will see pt in the hospital today for eval. JOVITA spoke with IPR MD - he would like to reevaluate pt tomorrow to determine appropriateness for IPR. ANGELO Lujan Pocket Flap Creasing Machine Operator onver hiren Transaction, Provider Unknown - 11/19/2013 12:40 PM PST Progress Notes by Emi Donaldson PT at 11/19/13 1470 Author: Emi Donaldson PT Service: (none) Author Type: Physical Therapist Filed: 11/19/13 1313 Date of Service: 11/19/13 1240 Status: Signed Electrical Logger: Emi Donaldson PT (Physical Therapist) 11/19/13 1240 [...] and I have a bladder appointment at [facility] I need to take care of [...] Date of Service: 11/19/13 1020 Status: Signed Electrical Logger: Emi Donaldson PT (Physical Therapist) 11/19/13 1020 [...] 0433 Date of Service: 11/19/13428 Status: Signed Electrical Logger: Kala Peña RN (Registered Nurse) Pt slept [...] 1827 Date of Service: 11/18/131807 Status: Signed Electrical Logger: Fran Eddy MD (Physician) [facility] Service: Hospitalist Progress Note Ronald Stefaniwtjanene 68 y.o. [id number] 306/306-2 female [facility] Day: LOS: 4 days Patient Summary: .A 68-year-old female with past medical history of depression with m ultiple suicide attempts in the past, history of COPD, which she attributes to paint inhalat ion, history of anxiety, restless leg syndrome, GERD, diabetes mellitus type 2, diet control led, hypothyroidism, who was admitted to [facility] on the November 14, when the patient was found to be unresponsive by EMS and thought to be secondary to Fle xeril overdose and alcohol intoxication as her alcohol level was more than 300. The patient was found to be hypertensive, hence she was intubated and brought to the [facility] where she was put on dopamine, [...] mood is better after she talked with Incoming Freight Clerk ,denied any suicidal ideation /thoughts at this moment . Patient c/o generalized weakness and evaluated by PT who recommended SNF and patient wants to know if she can goto [facility]. She denied any chest pain, cough,sob ,no [...] Procedure Component Value Units Date/Time Urine culture [[id number]] Collected:11/17/13 1013 Specimen Information:Urine / Urine, Catheter Updated:11/18/13 1710 Specimen Description CATHETERIZED URINE Specimen Description Result: Testing performed at [facility] [place] [address] CULTURE NO GROWTH CULTURE Result: Testing performed at [facility], [address] [place] [address] REPORT STATUS 11/18/2013 FINAL Blood culture, 1 of 2 [[id number]] Collected:11/17/13 1042 Specimen Information:Blood / Blood Updated:11/18/13 1451 Specimen Description BLOOD Specimen Description Result: Testing performed at [facility];[address] [place] [address] SPECIAL REQUESTS Result: REPEAT TEST USING ALTERNATE ASSAYED CONTROL MATERIAL SPECIAL REQUESTS Result: Testing performed at [facility];[address] [place] [address] CULTURE NO GROWTH AT THIS TIME CULTURE Result: Testing performed at [facility], [address] [place] [address] REPORT STATUS PENDING Blood culture, 2 of 2 [[id number]] Collected:11/17/13 1050 Specimen Information:Blood / Blood Updated:11/18/13 1451 Specimen Description BLOOD Specimen Description Result: Testing performed at [facility];[address] [place] [address] SPECIAL REQUESTS PICC LINE SPECIAL REQUESTS Result: Testing performed at [facility];[address] [place] [address] CULTURE NO GROWTH AT THIS TIME CULTURE Result: Testing performed at [facility], [address] [place] [address] REPORT STATUS PENDING Sputum culture [[id number]] Collected:11/17/13 1153 Specimen Information:Sputum / Sputum Updated:11/18/13 1428 Specimen Description SPUTUM Specimen Description Result: Testing performed at [facility];[address] [place] [address];[place] [address] GRAM STAIN GREATER THAN 10 WBCS/LPF GRAM STAIN LESS THAN 10 SEC/LPF GRAM STAIN NO ORGANISMS SEEN GRAM STAIN Result: Testing performed at [facility], [address] [place] [address] CULTURE 1+ NORMAL UPPER RESPIRATORY CURTIS CULTURE Result: Testing performed at [address] [address] REPORT STATUS PENDING Magnesium [[id number]] Collected:11/18/13 0600 Specimen Information:Blood Updated:11/18/13 1104 MAGNESIUM 2.1 mg/dL Phosphorus [[id number]] Collected:11/18/13 06 Specimen Information:Blood Updated:11/18/13 1104 PHOSPHORUS 3.8 mg/dL Basic metabolic panel [[id number]] (Abnormal) Collected:11/18/13 0600 Specimen Information:Blood Updated:11/18/13 0716 SODIUM 135 mmol/L POTASSIUM 4.2 mmol/L CHLORIDE 104 mmol/L CO2 24 mmol/L ANION GAP AGAP 11 mmol/L GLUCOSE 110 (H) mg/dL BUN 11 mg/dL CREATININE 0.73 mg/dL BUN/CREAT 15 CALCIUM 9.0 mg/dL EGFR >60 mL/min/1.73m2 TSH [[id number]] Collected:11/18/13 06 Specimen Information:Blood Updated:11/18/13 0713 TSH 4.28 uIU/mL CBC w/auto diff (reflex to manual) [[id number]] (Abnormal) Collected:11/18/13 06 Specimen Information:Blood Updated:11/18/13 0647 [...] K/uL BASOPHILS ABS 0.0 K/uL Urine culture [[id number]] Collected:11/16/13 0951 Specimen Information:Urine / Urine, Clean Catch Updated:11/17/13 1618 Specimen Description CLEAN CATCH URINE Specimen Description Result: Testing performed at [facility];[address] [facility];[place] [address] CULTURE NO GROWTH CULTURE Result: Testing performed at [facility], [address] [place] [address] REPORT STATUS 11/17/2013 FINAL Magnesium [[id number]] (Abnormal) Collected:11/16/13406 Specimen Information:Blood Updated:11/17/13 1141 MAGNESIUM 1.6 (L) mg/dL Phosphorus [[id number]] (Abnormal) Collected:11/16/13406 Specimen Information:Blood Updated:11/17/13 1141 PHOSPHORUS 1.7 (L) mg/dL Iron panel [[id number]] (Abnormal) Collected:11/17/13556 Specimen Information:Blood Updated:11/17/1318 IRON 31 ug/dL TIBC 155 (L) ug/dL IRON % SAT 20 % Vitamin B12 [[id number]] Collected:11/17/1357 Specimen Information:Blood Updated:11/17/13 0711 VITAMIN B12 417 pg/mL Folate [[id number]] Collected:11/17/13556 Specimen Information:Blood Updated:11/17/13 0711 FOLATE 17.7 ng/mL Ferritin [[id number]] Collected:11/17/13556 Specimen Information:Blood Updated:11/17/1311 FERRITIN 140 ng/mL Comprehensive metabolic panel [[id number]] (Abnormal) Collected:11/17/13556 Specimen Information:Blood Updated:11/17/1310 SODIUM 134 (L) mmol/L POTASSIUM 3.8 mmol/L [...] mL/min/1.73m2 CBC w/auto diff (reflex to manual) [[id number]] (Abnormal) Collected:11/17/13 0557 Specimen Information:Blood Updated:11/17/13 0641 [...] K/uL BASOPHILS ABS 0.0 K/uL MORPHOLOGY Potassium [[id number]] Collected:11/16/13 1112 Specimen Information:Blood Updated:11/16/13 1133 POTASSIUM 3.6 mmol/L Sputum culture [[id number]] Collected:11/14/132054 Specimen Information:Sputum / Tracheal Aspirate Updated:11/16/13 1018 Specimen Description TRACHEAL ASPIRATE Specimen Description Result: Testing performed at [address] [address] GRAM STAIN GREATER THAN 10 WBCS/LPF GRAM STAIN LESS THAN 10 SEC/LPF GRAM STAIN 2+ GRAM POSITIVE COCCI GRAM STAIN 1+ GRAM POSITIVE RODS GRAM STAIN Result: Testing performed at [facility], [address] [place] [address] CULTURE 2+ NORMAL UPPER RESPIRATORY CURTIS CULTURE Result: Testing performed at [facility], [address] [place] [address] REPORT STATUS 11/16/2013 FINAL Acetaminophen level [[id number]] (Abnormal) Collected:11/16/13 0755 Specimen Information:Blood Updated:11/16/13 0828 ACETAMINOPHEN 3.7 (L) ug/mL CBC w/auto diff (reflex to manual) [[id number]] (Abnormal) Collected:11/16/13406 Specimen Information:Blood Updated:11/16/13 0503 WBC [...] BASOPHILS ABS 0.0 K/uL Basic metabolic panel [[id number]] (Abnormal) Collected:11/16/13406 Specimen Information:Blood Updated:11/16/13439 SODIUM 143 mmol/L POTASSIUM 3.1 (L) mmol/L CHLORIDE 109 mmol/L CO2 27 mmol/L ANION GAP AGAP 10 mmol/L GLUCOSE 78 mg/dL BUN 7 (L) mg/dL CREATININE 0.77 mg/dL BUN/CREAT 9 CALCIUM 7.8 (L) mg/dL EGFR >60 mL/min/1.73m2 Acetaminophen level [[id number]] (Abnormal) Collected:11/16/13406 Specimen Information:Blood Updated:11/16/13 0440 ACETAMINOPHEN 4.5 (L) ug/mL Acetaminophen level [[id number]] (Abnormal) Collected:11/16/136 Specimen Information:Blood Updated:11/16/13 0058 ACETAMINOPHEN 5.2 (L) [...] (none) Author Type: Registered Nurse Filed: 11/18/13 2429 Date of Service: 11/18/131805 Status: Signed Electrical Logger: Donita Tucker RN (Registered Nurse) wind energy technician at bedside, pt seeming uplifted by conversation with certified orthotic fitter. PCC in and asked t hat this RN not remove cords, call-light cord and other items nearby pt as correctional officer captain had con tacted her regarding this RN's discussion that per policy and patients statements indicating that she intended to cause her self harm this RN felt it would be best to move items that s he could use to harm herself away from her after she finished speaking with the certified orthotic fitter. Th is RN has increased rounding, line of site at RN station and correctional officer captain continues to be in pl suk[place]. Pt overall mood continue to be melancholy and tearful, but has not threatened to do chapito f harm since her discussion with the certified orthotic fitter. Pt encouraged to express her emotions to staf f. Pt complains of diffuse pain, and desire to go to [facility]. Pt medicated for pain per DEC. Wi ll continue to monitor closely.DONITA TUCKER RN onver hiren Transaction, Provider Unknown - 11/18/2013 2:59 PM PST Progress Notes by Franky Mcclain at 11/18/13 3798 Author: Franky Mcclain Service: (none) Author Type: Regional Economist Filed: 11/18/13 0415 Date of Service: 11/18/13 8539 Status: Signed Electrical Logger: Franky Mcclain (Regional Economist) Received pt's request via RN for "someone [...] but now belongs to the "[employer]" and the [facility]. She states that she's [...] (none) Author Type: Registered Nurse Filed: 11/18/13 1214 Date of Service: 11/18/13 1208 Status: Signed Electrical Logger: Donita Tucker RN (Registered Nurse) Regional Economist called to be with patient,, correctional officer captain at bedside. Pt indicating desire to [...] 11/18/1315 Date of Service: 11/18/13612 Status: Signed Electrical Logger: Kala Peña RN (Registered Nurse) Pt slept [...] 1835 Date of Service: 11/17/131823 Status: Signed Electrical Logger: Dick De Santiago RN (Registered Nurse) Pt [...] Date of Service: 11/17/13 1341 Status: Signed Electrical Logger: Sharif Romero (Regional Economist) I visited with Pt to assess her [...] Date of Service: 11/17/13 1133 Status: Signed Electrical Logger: Emi Donaldson PT (Physical Therapist) 11/17/13 1133 [...] 20deg 104/55 70-80 throughout session onver hiren [place], Provider Unknown - 11/17/2013 11:33 AM PST Progress Notes by Emi Donaldson PT at 11/17/13 1133 Author: Emi Donaldson PT Service: (none) Author Type: Physical Therapist Filed: 11/17/13 1258 Date of Service: 11/17/13 1133 Status: Signed Electrical Logger: mEi Donaldson PT (Physical Therapist) 11/17/13 1133 PT [...] Recommendations SNF Equipment Recommended (pending improvement, lift digital media representative c/s) Prior Function Level of [place] Modified independent with functional mobility;Modified independent wi [...] Date of Service: 11/17/13 1002 Status: Signed Electrical Logger: Fran Eddy MD (Physician) Related Notes: Original Note by Fran Eddy MD (Physician) filed at 11/17/13 1016 [facility] Service: Hospitalist Progress Note Ronald Sykescullen 68 y.o. [id number] 306/306-2 female MIQUEL Erick [facility] Day: LOS: 3 days Patient Summary: .A 68-year-old female with past medical history of depression with m ultiple suicide attempts in the past, history of COPD, which she attributes to paint inhalat ion, history of anxiety, restless leg syndrome, GERD, diabetes mellitus type 2, diet control led, hypothyroidism, who was admitted to [facility] on the November 14 014, when the patient was found to be unresponsive by EMS and thought to be secondary to Fle xeril overdose and alcohol intoxication as her alcohol level was more than 300. The patient was found to be hypertensive, hence she was intubated and brought to [facility] where she was put on dopamine, [...] commands . I received her records from [facility]. The patient's 2 sons live in [place], and she does not know the phone [...] Procedure Component Value Units Date/Time Iron panel [[id number]] (Abnormal) Collected:11/17/13556 Specimen Information:Blood Updated:11/17/13717 IRON 31 ug/dL TIBC 155 (L) ug/dL IRON % SAT 20 % Vitamin B12 [[id number]] Collected:11/17/13556 Specimen Information:Blood Updated:11/17/13710 VITAMIN B12 417 pg/mL Folate [[id number]] Collected:11/17/13556 Specimen Information:Blood Updated:11/17/13710 FOLATE 17.7 ng/mL Ferritin [[id number]] Collected:11/17/13556 Specimen Information:Blood Updated:11/17/13710 FERRITIN 140 ng/mL Comprehensive metabolic panel [[id number]] (Abnormal) Collected:11/17/13556 Specimen Information:Blood Updated:11/17/13709 SODIUM 134 [...] mL/min/1.73m2 CBC w/auto diff (reflex to manual) [[id number]] (Abnormal) Collected:11/17/13 0557 Specimen Information:Blood Updated:11/17/13 0641 [...] BASOPHILS ABS 0.0 K/uL MORPHOLOGY Urine culture [[id number]] Collected:11/16/13 0951 Specimen Information:Urine / Urine, Clean Catch Updated:11/16/13 1144 Potassium [[id number]] Collected:11/16/13 1112 Specimen Information:Blood Updated:11/16/13 1133 POTASSIUM 3.6 mmol/L Sputum culture [[id number]] Collected:11/14/13 2055 Specimen Information:Sputum / Tracheal Aspirate Updated:11/16/13 1018 Specimen Description TRACHEAL ASPIRATE Specimen Description Result: Testing performed at [address];[place] [address] GRAM STAIN GREATER THAN 10 WBCS/LPF GRAM STAIN LESS THAN 10 SEC/LPF GRAM STAIN 2+ GRAM POSITIVE COCCI GRAM STAIN 1+ GRAM POSITIVE RODS GRAM STAIN Result: Testing performed at [facility], [address] [place] [address] CULTURE 2+ NORMAL UPPER RESPIRATORY CURTIS CULTURE Result: Testing performed at [facility], [address] [place] [address] REPORT STATUS 11/16/2013 FINAL Acetaminophen level [[id number]] (Abnormal) Collected:11/16/13 0755 Specimen Information:Blood Updated:11/16/13 0828 ACETAMINOPHEN 3.7 (L) ug/mL Magnesium [[id number]] Collected:11/16/13406 Specimen Information:Blood Updated:11/16/13 0800 Phosphorus [[id number]] Collected:11/16/13406 Specimen Information:Blood Updated:11/16/13 0800 CBC w/auto diff (reflex to manual) [[id number]] (Abnormal) Collected:11/16/13406 Specimen Information:Blood Updated:11/16/13 0503 WBC [...] BASOPHILS ABS 0.0 K/uL Basic metabolic panel [[id number]] (Abnormal) Collected:11/16/13406 Specimen Information:Blood Updated:11/16/13 044 SODIUM 143 mmol/L POTASSIUM 3.1 (L) mmol/L CHLORIDE 109 mmol/L CO2 27 mmol/L ANION GAP AGAP 10 mmol/L GLUCOSE 78 mg/dL BUN 7 (L) mg/dL CREATININE 0.77 mg/dL BUN/CREAT 9 CALCIUM 7.8 (L) mg/dL EGFR >60 mL/min/1.73m2 Acetaminophen level [[id number]] (Abnormal) Collected:11/16/13406 Specimen Information:Blood Updated:11/16/13 0440 ACETAMINOPHEN 4.5 (L) ug/mL Acetaminophen level [[id number]] (Abnormal) Collected:11/16/13 0036 Specimen Information:Blood Updated:11/16/13 0058 ACETAMINOPHEN 5.2 (L) ug/mL Troponin I [[id number]] (Abnormal) Collected:11/15/13 1602 Specimen Information:Blood Updated:11/15/13 1651 TROPONIN I 0.208 (H) ng/mL CK MB [[id number]] Collected:11/15/13 1602 MMB 3.4 ng/mL Updated:11/15/13 165 CK-MB Index 2.4 CPK [[id number]] Collected:11/15/13 160 Specimen Information:Blood Updated:11/15/13 1651 CPK 140 U/L Acetaminophen level [[id number]] Collected:11/15/13 160 Specimen Information:Blood Updated:11/15/13 1651 ACETAMINOPHEN 10.0 ug/mL POCT glucose [[id number]] (Abnormal) Collected:11/14/13 1920 GLUCOSE,POC SCREEN 154 (H) mg/dL Updated:11/15/13 1317 Acetaminophen level [[id number]] (Abnormal) Collected:11/15/13 113 Specimen Information:Blood Updated:11/15/13 1207 ACETAMINOPHEN 5.5 (L) ug/mL Basic metabolic panel [[id number]] (Abnormal) Collected:11/15/13 113 Specimen Information:Blood Updated:11/15/13 1207 SODIUM 144 (H) mmol/L POTASSIUM 3.9 mmol/L CHLORIDE 114 (H) mmol/L CO2 20 (L) mmol/L ANION GAP AGAP 14 mmol/L GLUCOSE 153 (H) mg/dL BUN 8 mg/dL CREATININE 0.92 mg/dL BUN/CREAT 9 CALCIUM 7.4 (L) mg/dL EGFR >60 mL/min/1.73m2 CPK [[id number]] Collected:11/15/1351 Specimen Information:Blood Updated:11/15/13 0925 CPK 75 U/L Troponin I [[id number]] (Abnormal) Collected:11/15/13850 Specimen Information:Blood Updated:11/15/1325 TROPONIN I 0.325 (H) ng/mL CK MB [[id number]] Collected:11/15/13850 MMB 3.4 ng/mL Updated:11/15/13924 CK-MB Index 4.5 Acetaminophen level [[id number]] (Abnormal) Collected:11/15/1351 Specimen Information:Blood Updated:11/15/13 0925 ACETAMINOPHEN 6.3 (L) ug/mL POCT glucose [[id number]] Collected:11/15/13 0033 GLUCOSE,POC SCREEN 86 mg/dL Updated:11/15/13 0759 Osmolality [[id number]] (Abnormal) Collected:11/15/13407 Specimen Information:Blood Updated:11/15/13 0701 OSMOLALITY,SERUM 316 (H) mOsm/kg Lactic acid, plasma [[id number]] (Abnormal) Collected:11/15/13 0532 Specimen Information:Blood Updated:11/15/13 0617 LACTIC ACID 2.5 (H) mmol/L CBC w/auto diff (reflex to manual) [[id number]] (Abnormal) Collected:11/15/13407 Specimen Information:Blood Updated:11/15/13529 WBC 5.5 [...] BASOPHILS ABS 0.0 K/uL MORPHOLOGY Troponin I [[id number]] (Abnormal) Collected:11/15/13407 Specimen Information:Blood Updated:11/15/13522 TROPONIN I 0.647 (HH) ng/mL CK MB [[id number]] Collected:11/15/13407 MMB 3.3 ng/mL Updated:11/15/13522 CK-MB Index 5.9 CPK [[id number]] Collected:11/15/13407 Specimen Information:Blood Updated:11/15/13521 CPK 56 U/L Comprehensive metabolic panel [[id number]] (Abnormal) Collected:11/15/13407 Specimen Information:Blood Updated:11/15/13521 SODIUM 148 [...] 61 U/L EGFR >60 mL/min/1.73m2 Acetaminophen level [[id number]] (Abnormal) Collected:11/15/13 0408 Specimen Information:Blood Updated:11/15/13 0522 ACETAMINOPHEN 9.9 (L) ug/mL POC arterial CG4+ [[id number]] (Abnormal) Collected:11/14/132346 pH, Art 7.141 (LL) Updated:11/14/132350 POC PCO2 40 mmHg POC p02 283 (H) mmHg POC LACTATE 3.7 (H) mmol/L POC HCO3 14 (L) mmol/L POC TCO2 15 (L) mEq/L POC BASE DEFICIT 15 (H) mmol/L POC S02 100 (H) % POC FIO2 70 % POC COMMENTS Tidal Volume = 500 Lactic acid, plasma [[id number]] (Abnormal) Collected:11/14/132116 Specimen Information:Blood Updated:11/14/132155 LACTIC ACID 3.4 (H) mmol/L Basic metabolic panel [[id number]] (Abnormal) Collected:11/14/132112 Specimen Information:Blood Updated:11/14/132149 SODIUM 143 mmol/L POTASSIUM 3.0 (L) mmol/L CHLORIDE 114 (H) mmol/L CO2 16 (L) mmol/L ANION GAP AGAP 16 mmol/L GLUCOSE 187 (H) mg/dL BUN 10 mg/dL CREATININE 0.79 mg/dL BUN/CREAT 13 CALCIUM 6.5 (L) mg/dL EGFR >60 mL/min/1.73m2 Phosphorus [[id number]] Collected:11/14/132112 Specimen Information:Blood Updated:11/14/132149 PHOSPHORUS 2.4 mg/dL Magnesium [[id number]] Collected:11/14/132112 Specimen Information:Blood Updated:11/14/132149 MAGNESIUM 1.7 mg/dL Hepatic function panel [[id number]] (Abnormal) Collected:11/14/132112 TOTAL PROTEIN 5.6 (L) g/dL Updated:11/14/132149 Albumin 3.1 (L) g/dL TBIL 0.2 mg/dL BILI, DIRECT <0.1 mg/dL ALK PHOS 76 U/L AST 75 (H) U/L ALT 67 (H) U/L Acetaminophen level [[id number]] (Abnormal) Collected:11/14/132112 Specimen Information:Blood Updated:11/14/132149 ACETAMINOPHEN 44.4 (H) ug/mL Ionized calcium,to [facility] [[id number]] (Abnormal) Collected:11/14/132114 Specimen Information:Blood Updated:11/14/132145 CA++ 0.99 (L) mmol/L pH 7.179 (L) aPTT [[id number]] Collected:11/14/132112 Specimen Information:Blood Updated:11/14/132144 APTT 26 seconds Protime-INR [[id number]] Collected:11/14/132112 Specimen Information:Blood Updated:11/14/132144 INR 1.0 MRSA by PCR [[id number]] Collected:11/14/131929 Specimen Information:Nasopharyngeal / Nasopharyngeal Culture Updated:11/14/132130 SOURCE NARES(NOSE) RESULT NEGATIVE CBC w/auto diff (reflex to manual) [[id number]] (Abnormal) Collected:11/14/132112 Specimen Information:Blood Updated:11/14/132130 WBC 12.2 [...] ABS 0.0 K/uL Rapid drug screen, urine [[id number]] (Abnormal) Collected:11/14/131929 Specimen Information:Urine / Urine, Catheter Updated:11/14/132036 THC NEGATIVE PCP NEGATIVE COCAINE NEGATIVE METHAMPHETAMINES NEGATIVE OPIATES PRESUMPTIVE POSITIVE (A) AMPHETAMINE NEGATIVE BENZODIAZEPINE NEGATIVE TRICYCLIC ANTIDEPRESS PRESUMPTIVE POSITIVE (A) METHADONE NEGATIVE BARBITUATES NEGATIVE Urine microscopic only [[id number]] (Abnormal) Collected:11/14/131929 WBC 1-5 /hpf Updated:11/14/132035 RBC 0-2 /hpf EPITHELIAL NONE SEEN /lpf BACTERIA TRACE (A) Urinalysis (reflex to micro) [[id number]] (Abnormal) Collected:11/14/131929 Specimen Information:Urine / Urine, Catheter Updated:11/14/132035 COLOR UA OTHER CLARITY CLEAR Specific [place], UA 1.004 LEUKOCYTE ESTERASE TRACE (A) NITRITE [...] to patient,doing exam and revising records from [facility]. FRAN EDDY MD 11/17/2013 onversion Transactio n, Provider Unknown - 11/17/2013 4:27 AM PST Nurse Progress Note by Jazzy Patel RN at 11/17/13426 Author: Jazzy Patel RN Service: (none) Author Type: Registered Nurse Filed: 11/17/13 0429 Date of Service: 11/17/13426 Status: Signed Electrical Logger: Jazzy Jorge, RN (Registered Nurse) Pt currently sleeping. 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 Unable to score CIWA a s [...] Notes by Fran Eddy MD at 11/16/13 5660 Author: Fran Eddy MD Service: Hospitalist Author Type: Physician Filed: 11/17/13 8866 Date of Service: 11/16/13 1091 Status: Signed Electrical Logger: Fran Eddy MD (Physician) Related Notes: Original Note by Fran Eddy MD (Physician) filed at 11/16/13 2779 [facility] Service: Hospitalist Progress Note Ronald Torresmiraclerigowthrop 68 y.o. [id number] female [facility] Day: LOS: 2 days Patient Summary: A 68-year-old female with past medical history of depression and his tory of suicidal attempts, COPD per patient but there is no documentation of it, who took an overdose of Flexeril and EMS found her in the bathtub with clothes on, and the patient was taken to [facility] ER where she was found to be unresponsive and hypertensive, an d was intubated and sent to [facility] for further workup and treatment. [...] atient told that she lives alone in [place]. She [facility]. She [...] Procedure Component Value Units Date/Time Urine culture [[id number]] Collected:11/16/13 0951 Specimen Information:Urine / Urine, Clean Catch Updated:11/16/13 1144 Potassium [[id number]] Collected:11/16/13 1112 Specimen Information:Blood Updated:11/16/13 1133 POTASSIUM 3.6 mmol/L Sputum culture [[id number]] Collected:11/14/132054 Specimen Information:Sputum / Tracheal Aspirate Updated:11/16/13 1018 Specimen Description TRACHEAL ASPIRATE Specimen Description Result: [place] [facility] [place] [address];[place] [address] GRAM STAIN GREATER THAN 10 WBCS/LPF GRAM STAIN LESS THAN 10 SEC/LPF GRAM STAIN 2+ GRAM POSITIVE COCCI GRAM STAIN 1+ GRAM POSITIVE RODS GRAM STAIN Result: Testing performed at [facility], [address] [place] [address] CULTURE 2+ NORMAL UPPER RESPIRATORY CURTIS CULTURE Result: Testing performed at [facility], [address] [place] [address] REPORT STATUS 11/16/2013 FINAL Acetaminophen level [[id number]] (Abnormal) Collected:11/16/13 0755 Specimen Information:Blood Updated:11/16/13 0828 ACETAMINOPHEN 3.7 (L) ug/mL Magnesium [[id number]] Collected:11/16/13 0407 Specimen Information:Blood Updated:11/16/13 0800 Phosphorus [[id number]] Collected:11/16/13 040 Specimen Information:Blood Updated:11/16/13 0800 CBC w/auto diff (reflex to manual) [[id number]] (Abnormal) Collected:11/16/13 0407 Specimen Information:Blood Updated:11/16/13 0503 [...] BASOPHILS ABS 0.0 K/uL Basic metabolic panel [[id number]] (Abnormal) Collected:11/16/13 0407 Specimen Information:Blood Updated:11/16/13 0440 SODIUM 143 mmol/L POTASSIUM 3.1 (L) mmol/L CHLORIDE 109 mmol/L CO2 27 mmol/L ANION GAP AGAP 10 mmol/L GLUCOSE 78 mg/dL BUN 7 (L) mg/dL CREATININE 0.77 mg/dL BUN/CREAT 9 CALCIUM 7.8 (L) mg/dL EGFR >60 mL/min/1.73m2 Acetaminophen level [[id number]] (Abnormal) Collected:11/16/13 0407 Specimen Information:Blood Updated:11/16/13 0440 ACETAMINOPHEN 4.5 (L) ug/mL Acetaminophen level [[id number]] (Abnormal) Collected:11/16/13 0036 Specimen Information:Blood Updated:11/16/13 0058 ACETAMINOPHEN 5.2 (L) ug/mL Troponin I [[id number]] (Abnormal) Collected:11/15/13 1602 Specimen Information:Blood Updated:11/15/13 1651 TROPONIN I 0.208 (H) ng/mL CK MB [[id number]] Collected:11/15/13 1602 MMB 3.4 ng/mL Updated:11/15/13 1651 CK-MB Index 2.4 CPK [[id number]] Collected:11/15/13 1602 Specimen Information:Blood Updated:11/15/13 1651 CPK 140 U/L Acetaminophen level [[id number]] Collected:11/15/13 1602 Specimen Information:Blood Updated:11/15/13 1651 ACETAMINOPHEN 10.0 ug/mL POCT glucose [[id number]] (Abnormal) Collected:11/14/13 1920 GLUCOSE,POC SCREEN 154 (H) mg/dL Updated:11/15/13 1317 Acetaminophen level [[id number]] (Abnormal) Collected:11/15/13 1132 Specimen Information:Blood Updated:11/15/13 1207 ACETAMINOPHEN 5.5 (L) ug/mL Basic metabolic panel [[id number]] (Abnormal) Collected:11/15/13 1132 Specimen Information:Blood Updated:11/15/13 1207 SODIUM 144 (H) mmol/L POTASSIUM 3.9 mmol/L CHLORIDE 114 (H) mmol/L CO2 20 (L) mmol/L ANION GAP AGAP 14 mmol/L GLUCOSE 153 (H) mg/dL BUN 8 mg/dL CREATININE 0.92 mg/dL BUN/CREAT 9 CALCIUM 7.4 (L) mg/dL EGFR >60 mL/min/1.73m2 CPK [[id number]] Collected:11/15/13850 Specimen Information:Blood Updated:11/15/13924 CPK 75 U/L Troponin I [[id number]] (Abnormal) Collected:11/15/13850 Specimen Information:Blood Updated:11/15/13924 TROPONIN I 0.325 (H) ng/mL CK MB [[id number]] Collected:11/15/13850 MMB 3.4 ng/mL Updated:11/15/13924 CK-MB Index 4.5 Acetaminophen level [[id number]] (Abnormal) Collected:11/15/13850 Specimen Information:Blood Updated:11/15/13924 ACETAMINOPHEN 6.3 (L) ug/mL POCT glucose [[id number]] Collected:11/15/13 0033 GLUCOSE,POC SCREEN 86 mg/dL Updated:11/15/13 0759 Osmolality [[id number]] (Abnormal) Collected:11/15/138 Specimen Information:Blood Updated:11/15/13 0701 OSMOLALITY,SERUM 316 (H) mOsm/kg Lactic acid, plasma [[id number]] (Abnormal) Collected:11/15/13 0532 Specimen Information:Blood Updated:11/15/13 0617 LACTIC ACID 2.5 (H) mmol/L CBC w/auto diff (reflex to manual) [[id number]] (Abnormal) Collected:11/15/138 Specimen Information:Blood Updated:11/15/13 0530 WBC [...] BASOPHILS ABS 0.0 K/uL MORPHOLOGY Troponin I [[id number]] (Abnormal) Collected:11/15/13407 Specimen Information:Blood Updated:11/15/13522 TROPONIN I 0.647 (HH) ng/mL CK MB [[id number]] Collected:11/15/13407 MMB 3.3 ng/mL Updated:11/15/13522 CK-MB Index 5.9 CPK [[id number]] Collected:11/15/13407 Specimen Information:Blood Updated:11/15/13521 CPK 56 U/L Comprehensive metabolic panel [[id number]] (Abnormal) Collected:11/15/13407 Specimen Information:Blood Updated:11/15/13521 SODIUM 148 [...] 61 U/L EGFR >60 mL/min/1.73m2 Acetaminophen level [[id number]] (Abnormal) Collected:11/15/13407 Specimen Information:Blood Updated:11/15/13521 ACETAMINOPHEN 9.9 (L) ug/mL POC arterial CG4+ [[id number]] (Abnormal) Collected:11/14/13 2347 pH, Art 7.141 (LL) Updated:11/14/13 2351 POC PCO2 40 mmHg POC p02 283 (H) mmHg POC LACTATE 3.7 (H) mmol/L POC HCO3 14 (L) mmol/L POC TCO2 15 (L) mEq/L POC BASE DEFICIT 15 (H) mmol/L POC S02 100 (H) % POC FIO2 70 % POC COMMENTS Tidal Volume = 500 Lactic acid, plasma [[id number]] (Abnormal) Collected:11/14/132116 Specimen Information:Blood Updated:11/14/132155 LACTIC ACID 3.4 (H) mmol/L Basic metabolic panel [[id number]] (Abnormal) Collected:11/14/132112 Specimen Information:Blood Updated:11/14/132149 SODIUM 143 mmol/L POTASSIUM 3.0 (L) mmol/L CHLORIDE 114 (H) mmol/L CO2 16 (L) mmol/L ANION GAP AGAP 16 mmol/L GLUCOSE 187 (H) mg/dL BUN 10 mg/dL CREATININE 0.79 mg/dL BUN/CREAT 13 CALCIUM 6.5 (L) mg/dL EGFR >60 mL/min/1.73m2 Phosphorus [[id number]] Collected:11/14/132112 Specimen Information:Blood Updated:11/14/132149 PHOSPHORUS 2.4 mg/dL Magnesium [[id number]] Collected:11/14/132112 Specimen Information:Blood Updated:11/14/132149 MAGNESIUM 1.7 mg/dL Hepatic function panel [[id number]] (Abnormal) Collected:11/14/132112 TOTAL PROTEIN 5.6 (L) g/dL Updated:11/14/132149 Albumin 3.1 (L) g/dL TBIL 0.2 mg/dL BILI, DIRECT <0.1 mg/dL ALK PHOS 76 U/L AST 75 (H) U/L ALT 67 (H) U/L Acetaminophen level [[id number]] (Abnormal) Collected:11/14/132112 Specimen Information:Blood Updated:11/14/132149 ACETAMINOPHEN 44.4 (H) ug/mL Ionized calcium,to [facility] [[id number]] (Abnormal) Collected:11/14/132114 Specimen Information:Blood Updated:11/14/132145 CA++ 0.99 (L) mmol/L pH 7.179 (L) aPTT [[id number]] Collected:11/14/132112 Specimen Information:Blood Updated:11/14/132144 APTT 26 seconds Protime-INR [[id number]] Collected:11/14/132112 Specimen Information:Blood Updated:11/14/132144 INR 1.0 MRSA by PCR [[id number]] Collected:11/14/131929 Specimen Information:Nasopharyngeal / Nasopharyngeal Culture Updated:11/14/132130 SOURCE NARES(NOSE) RESULT NEGATIVE CBC w/auto diff (reflex to manual) [[id number]] (Abnormal) Collected:11/14/132112 Specimen Information:Blood Updated:11/14/132130 WBC 12.2 [...] ABS 0.0 K/uL Rapid drug screen, urine [[id number]] (Abnormal) Collected:11/14/131929 Specimen Information:Urine / Urine, Catheter Updated:11/14/132036 THC NEGATIVE PCP NEGATIVE COCAINE NEGATIVE METHAMPHETAMINES NEGATIVE OPIATES PRESUMPTIVE POSITIVE (A) AMPHETAMINE NEGATIVE BENZODIAZEPINE NEGATIVE TRICYCLIC ANTIDEPRESS PRESUMPTIVE POSITIVE (A) METHADONE NEGATIVE BARBITUATES NEGATIVE Urine microscopic only [[id number]] (Abnormal) Collected:11/14/131929 WBC 1-5 /hpf Updated:11/14/132035 RBC 0-2 /hpf EPITHELIAL NONE SEEN /lpf BACTERIA TRACE (A) Urinalysis (reflex to micro) [[id number]] (Abnormal) Collected:11/14/131929 Specimen Information:Urine / Urine, Catheter Updated:11/14/132035 COLOR UA OTHER CLARITY CLEAR Specific [place], UA 1.004 LEUKOCYTE ESTERASE TRACE (A) NITRITE [...] 11/15/2013 Ct Head Without Contrast 11/14/2013 RONALD SYKESCHANELWTHRLEIGHANN [address] HEAD WO [...] to distal superior vena cava. 11/14/2013 RONALD WASHBURNHRLEIGHANN XR CHEST 1 VIEW [...] Notes by Kassidy Perez RN at 11/16/13 2220 Author: Kassidy Perez RN Service: (none) Author Type: Registered Nurse Filed: 11/16/13 1423 Date of Service: 11/16/13 142 Status: Signed Electrical Logger: Kassidy Perez RN (Registered Nurse) Pt beginning [...] 11/16/131139 Date of Service: 11/16/131139 Status: Signed Electrical Logger: Jana Taylor Pt given to Kassidy MORAN on 3OP. Pt transferred via wheel chair. onver hiren Transaction, Provider Unknown - 11/16/2013 1:17 AM PST Nurse Progress Note by Sheryl Tomas RN at 11/16/13116 Author: Sheryl Tomas RN Service: (none) Author Type: Registered Nurse Filed: 11/16/13116 Date of Service: 11/16/13116 Status: Signed Electrical Logger: Sheryl Tomas RN (Registered Nurse) Stopped Acetylcysteine drip per order. Sheryl Tomas RN Jana Sandoval - 11/15/2013 4:28 PM PST Progress Notes by Jana Sharpe DO at 11/15/131627 Author: Jana Sharpe DO Service: (none) Author Type: Anesthesia Technician Filed: 11/15/13 8322 Date of Service: 11/15/131627 Status: Signed Electrical Logger: Jana Sharpe DO (Anesthesia Technician) Pt was extubated this am and has [...] 1409 Date of Service: 11/15/131407 Status: Signed Electrical Logger: Kourtney De Santiago RN (Registered Nurse) Discussed psych consult with Dr. Sharpe. Received verbal order for psych consult. Notifi wilbert Flores RN, she will arrange for psych consult. When pt is stable for discharge, will need to call [facility] : [phone] to evalulate before disch arging pt. KOURTNEY DE SANTIAGO 11/15/2013 2:09 PM onver hiren Transaction, Provider Unknown - 11/15/2013 9:32 AM PST Progress Notes by Nick Jeffries RN at 11/15/13 0932 Author: Nick Jeffries RN Service: Wound/Ostomy Care Author Type: Registered Nurse Filed: 11/15/13 0934 Date of Service: 11/15/13 0932 Status: Signed Electrical Logger: Nick Jeffries RN (Registered Nurse) Pt seen [...] 11/15/13556 Date of Service: 11/15/13556 Status: Signed Electrical Logger: Mat Perez RPH (Pharmacist) Clinical Pharmacy Note: Renal Monitoring Ronald Butler 68 y.o. female Ht Readings from Last 1 Encounters: No data found for Ht Wt Readings from Last 1 Encounters: 11/15/13 69.1 kg (152 lb 5.4 oz) CREATININE Date Value Range Status 11/15/2013 0.69 0.50 - 1.00 mg/dL Final [place] [facility] [place] [address];[place] [address] Creatinine clearance cannot be calculated - Unknown [...] 11/15/131951 Date of Service: 11/14/131856 Status: Signed Electrical Logger: Roseline Sheppard RN (Registered Nurse) Pt arrived [facility] from [facility]. No report called from [facility] a nd minimal report received Via [facility]. Pt transferred to bed, ventilator applied to exist ing ETT via RT. Obvious smell of ETOH emitting from PT. No cough, gag or corneals noted. lieutenant shift supervisor RN Gayle in room to assume care of pt. ROSELINE SHEPPARD 11/14/131856 docume nted in this encounter H&P Notes Jazmín Riggins MD - 11/14/2013 5:36 AM PST H&P by Jazmín Riggins MD at 11/14/13 3936 Author: Jazmín Riggins MD Service: Anesthesia Technician Author Type: Physician Filed: 11/15/13 0620 Date of Service: 11/14/1336 Status: Signed Electrical Logger: Jazmín Riggins MD (Physician) [facility] Service: Anesthesia Technician Admission History & Physical Date of Admission: [...] with cloth on. She was transported to [facility] ER. After arrival to the ER [...] C) (11/15 0000) BP: (86-120)/(50-57) 120/57 mmHg (11/15 0000) Heart Rate: [111-130] 111 (11/15 332) Resp: [...] Component Value Units Date/Time Lactic acid, plasma [[id number]] Collected:11/15/13 0532 Specimen Information:Blood Updated:11/15/13 0540 CBC w/auto diff (reflex to manual) [[id number]] (Abnormal) Collected:11/15/13 0408 Specimen Information:Blood Updated:11/15/13 0530 [...] BASOPHILS ABS 0.0 K/uL MORPHOLOGY Troponin I [[id number]] (Abnormal) Collected:11/15/13407 Specimen Information:Blood Updated:11/15/13522 TROPONIN I 0.647 (HH) ng/mL CK MB [[id number]] Collected:11/15/13407 MMB 3.3 ng/mL Updated:11/15/13522 CK-MB Index 5.9 CPK [[id number]] Collected:11/15/13407 Specimen Information:Blood Updated:11/15/13521 CPK 56 U/L Comprehensive metabolic panel [[id number]] (Abnormal) Collected:11/15/13407 Specimen Information:Blood Updated:11/15/13521 SODIUM 148 [...] 61 U/L EGFR >60 mL/min/1.73m2 Acetaminophen level [[id number]] (Abnormal) Collected:11/15/13407 Specimen Information:Blood Updated:11/15/13521 ACETAMINOPHEN 9.9 (L) ug/mL POC arterial CG4+ [[id number]] (Abnormal) Collected:11/14/132346 pH, Art 7.141 (LL) Updated:11/14/132350 POC PCO2 40 mmHg POC p02 283 (H) mmHg POC LACTATE 3.7 (H) mmol/L POC HCO3 14 (L) mmol/L POC TCO2 15 (L) mEq/L POC BASE DEFICIT 15 (H) mmol/L POC S02 100 (H) % POC FIO2 70 % POC COMMENTS Tidal Volume = 500 Sputum culture [[id number]] Collected:11/14/132054 Specimen Information:Sputum / Tracheal Aspirate Updated:11/14/132323 Lactic acid, plasma [[id number]] (Abnormal) Collected:11/14/132116 Specimen Information:Blood Updated:11/14/132155 LACTIC ACID 3.4 (H) mmol/L Basic metabolic panel [[id number]] (Abnormal) Collected:11/14/132112 Specimen Information:Blood Updated:11/14/132149 SODIUM 143 mmol/L POTASSIUM 3.0 (L) mmol/L CHLORIDE 114 (H) mmol/L CO2 16 (L) mmol/L ANION GAP AGAP 16 mmol/L GLUCOSE 187 (H) mg/dL BUN 10 mg/dL CREATININE 0.79 mg/dL BUN/CREAT 13 CALCIUM 6.5 (L) mg/dL EGFR >60 mL/min/1.73m2 Phosphorus [[id number]] Collected:11/14/132112 Specimen Information:Blood Updated:11/14/132149 PHOSPHORUS 2.4 mg/dL Magnesium [[id number]] Collected:11/14/132112 Specimen Information:Blood Updated:11/14/132149 MAGNESIUM 1.7 mg/dL Hepatic function panel [[id number]] (Abnormal) Collected:11/14/132112 TOTAL PROTEIN 5.6 (L) g/dL Updated:11/14/132149 Albumin 3.1 (L) g/dL TBIL 0.2 mg/dL BILI, DIRECT <0.1 mg/dL ALK PHOS 76 U/L AST 75 (H) U/L ALT 67 (H) U/L Acetaminophen level [[id number]] (Abnormal) Collected:11/14/132112 Specimen Information:Blood Updated:11/14/132149 ACETAMINOPHEN 44.4 (H) ug/mL Ionized calcium,to [facility] [[id number]] (Abnormal) Collected:11/14/132114 Specimen Information:Blood Updated:11/14/132145 CA++ 0.99 (L) mmol/L pH 7.179 (L) aPTT [[id number]] Collected:11/14/132112 Specimen Information:Blood Updated:11/14/132144 APTT 26 seconds Protime-INR [[id number]] Collected:11/14/132112 Specimen Information:Blood Updated:11/14/132144 INR 1.0 MRSA by PCR [[id number]] Collected:11/14/131929 Specimen Information:Nasopharyngeal / Nasopharyngeal Culture Updated:11/14/132130 SOURCE NARES(NOSE) RESULT NEGATIVE CBC w/auto diff (reflex to manual) [[id number]] (Abnormal) Collected:11/14/132112 Specimen Information:Blood Updated:11/14/132130 WBC 12.2 [...] ABS 0.0 K/uL Rapid drug screen, urine [[id number]] (Abnormal) Collected:11/14/131929 Specimen Information:Urine / Urine, Catheter Updated:11/14/132036 THC NEGATIVE PCP NEGATIVE COCAINE NEGATIVE METHAMPHETAMINES NEGATIVE OPIATES PRESUMPTIVE POSITIVE (A) AMPHETAMINE NEGATIVE BENZODIAZEPINE NEGATIVE TRICYCLIC ANTIDEPRESS PRESUMPTIVE POSITIVE (A) METHADONE NEGATIVE BARBITUATES NEGATIVE Urine microscopic only [[id number]] (Abnormal) Collected:11/14/131929 WBC 1-5 /hpf Updated:11/14/132035 RBC 0-2 /hpf EPITHELIAL NONE SEEN /lpf BACTERIA TRACE (A) Urinalysis (reflex to micro) [[id number]] (Abnormal) Collected:11/14/131929 Specimen Information:Urine / Urine, Catheter Updated:11/14/132035 COLOR UA OTHER CLARITY CLEAR Specific [place], UA 1.004 LEUKOCYTE ESTERASE TRACE (A) NITRITE [...] Service: (none) Author Type: Physician Filed: 11/15/13 0536 Date of Service: 11/15/1334 Status: Signed Electrical Logger: Jazmín Riggins MD (Physician) Pre-procedure Diagnoses: 1. Overdose [977.9] Procedures: 1. INSERT ARTERIAL LINE [IVT1 (Custom)] Right femoral arterial line inserted under aseptic technique without difficulty. Ángel Rodriguez MD - 11/15/2013 5:31 AM PSTFormatting of this note might be different from the origi nal. Procedures by Jazmín Riggins MD at 11/15/13 0531 Author: Jazmín Riggins MD Service: (none) Author Type: Physician Filed: 11/15/13 0534 Date of Service: 11/15/13 0531 Status: Signed Electrical Logger: Jazmín Riggins MD (Physician) Pre-procedure Diagnoses: 1. [...] original. Consult* by Marek Bedolla at 11/19/13 1174 Author: Marek Bedolla Service: (none) Author Type: Crisis Intervention User Filed: 11/19/13 1743 Date of Service: 11/19/131733 Status: Signed Electrical Logger: Marek Bedolla (Crisis Intervention User) [facility] Date: 11/19/2013 Consumer: Ronald [...] She is future oriente d to the [facility] and wants to attend an appointment in [place] on the of . Her speech is slowed, appears to be very tired. Client is cooperative and conversan t. Diagnostic Impression [place] I: major depressive episode recurrent severe [place] II: deferred GAF: 28 Place of Contact: [facility] Disposition/LRAS Considered/Intervention Plan: Plan is to [...] she will be single bed certified to [facility]. Marek Bedolla [facility] 11/19/2013 Ganga Jc MD - 11/19/2013 2:08 PM PSTFormatting of this note might be different from th e original. Consults by Ganga Moore MD at 11/19/13 8069 Author: Ganga Moore MD Service: (none) Author Type: Physician Filed: 11/20/13 114 Date of Service: 11/19/13 1404 Status: Signed Electrical Logger: Ganga Moore MD (Physician) Related Notes: Original Note by Ganga Moore MD (Physician) filed at 11/19/13 6507 Consult Orders: 1. Inpatient consult to Psychiatry [[id number]] ordered by Fran Eddy MD at 11/18/13 [...] the last time I saw her at [facility] a week ago. Speech is spontaneous [...] Date of Service: 11/19/13 1052 Status: Signed Electrical Logger: Linda Gaona MD (Physician) [facility] Service: Physical Medicine & Rehab Initial [...] History: Patient lives alone and has wkly [employer] counseling for history. Vital Signs: BP 107/60 [...] secure dc plan prior to admit to [facility]. Primary Care Physician: MIQUEL CALHOUN Thank you for allowing me to participate in the care of this patient. LINDA GAONA MD 11/19/2013 Ganga Frye MD - 11/15/2013 2:24 PM PST Consults by Ganga Moore MD at 11/15/13 8006 Author: Ganga Moore MD Service: (none) Author Type: Physician Filed: 11/15/13 9406 Date of Service: 11/15/131423 Status: Signed Electrical Logger: Ganga Moore MD (Physician) Consult Orders: 1. Inpatient consult to Psychiatry [[id number]] ordered by Jana Sharpe DO at 11/15/13 0944 PSYCHIATRY CONSULT REFERRING PHYSICIAN: DR. SHARPE REASON FOR REFERRAL: "OVERDOSE" HPI: Patient is a 68yo white female who was brought to [facility] because of unresponsiveness due to reported overdose [...] declines to answer further MSE questions. ASSESSMENT: [place] I: Mood disorder,NOS History of depression [place] II: deferred [place] III: AMI, CVA, reported overdose, pls. See past medical history for details [place] IV: medical illness, mental illness [place] V: 35 RECOMMENDATIONS: Patient is currently an unreliable historian to assess her safety issues. Recent reported o edytase puts her at risk of self harm [...] [address] | | | | | | [facility], [place] | | | | | | [address] | | | | | | | | +--------+---------+ + + + | 09/01/ | Office | Cardiology | Monserrat Weems | | | 2019 | Visit | | [address] | | | | | | [address] | | | | | | [place] [address] | | | | | | [phone] | | | | | | | [...] | EXTERNAL LAB | | performed at [facility] [place] [phone] NAP1 BI | | | 027 NAP1 BI PRESUMPTIVE NEGATIVE | | | Detection of 027 NAP1 BI strains of C. difficile is presumptive and | | | for epidemiological purposes and not intended to guide or monitor | | | treatment for C. difficile infections. Testing performed at [facility] | | | [facility];[place] [address] | | + + + + +---------+ [...] | | | | | [place] [address] | | | | + + + + + + | Non- | 3.85Comment: Testing | 3.70 - 5.10 | EXTERNAL | | | Red Blood | performed at [facility], [address] | M/uL | LAB | | | Cells | [address], | | | | | Counted | [place] [address] | | | | + + + + + + | Hemoglobin | 10.7 (L)Comment: Testing | 11.3 - 15.5 | EXTERNAL | | | | performed at [facility], [address] | g/dL | LAB | | | | [address], | | | | | | [place] [address] | | | | + + + + + + | Hematocrit, | 32.8 (L)Comment: Testing | 34.0 - 46.0 % | EXTERNAL | | | POC | performed at [facility], [address] | | LAB | | | | [address], | | | | | | [place] [address] | | | | + + + + + + | MCV | 85.2Comment: Testing | 80.0 - 100.0 fl | EXTERNAL | | | | performed at [facility], [address] | | LAB | | | | [address], | | | | | | [place] [address] | | | | + + + + + + | MCH | 27.8Comment: Testing | 27.0 - 34.0 pg | EXTERNAL | | | | performed at [facility], [address] | | LAB | | | | [address], | | | | | | [place] [address] | | | | + + + + + + | MCHC | 32.6Comment: Testing | 32.0 - 35.5 | EXTERNAL | | | | performed at [facility], [address] | g/dL | LAB | | | | [address], | | | | | | [place] [address] | | | | + + + + + + | RDW-CV | 38.1Comment: Testing | 37 - 53 fl | EXTERNAL | | | | performed at [facility], [address] | | LAB | | | | [address], | | | | | | [place] [address] | | | | + + + + + + | Platelet | 222Comment: Testing | 150 - 400 K/uL | EXTERNAL | | | Count | performed at [facility], [address] | | LAB | | | Plasma | [address], | | | | | | [place] [address] | | | | + + + + + + | MPV | 7.8Comment: Testing | fl | EXTERNAL | | | | performed at [facility], [address] | | LAB | | | | [address], | | | | | | [place] [address] | | | | + + + + + + | Differentia | AUTOMATEDComment: | | EXTERNAL | | | l Type | Testing performed at | | LAB | | | | [facility], [address] | | | | | | [place] | | | | | | [address] | | | | + + + [...] EXTERNAL | | | | performed at [facility], [address] | | LAB | | | | [address], | | | | | | [place] [address] | | | | + + + [...] [place], | | | | | | [place] [address] | | | | + + + [...] | | | | | [place] [address] | | | | + + + + + + | K | 3.9Comment: Testing | 3.5 - 4.9 | EXTERNAL | | | | performed at [facility], [address] | mmol/L | LAB | | | | [address], | | | | | | [place] [address] | | | | + + + + + + | Cl | 101Comment: Testing | 99 - 109 mmol/L | EXTERNAL | | | | performed at [facility], [address] | | LAB | | | | [address], | | | | | | [place] [address] | | | | + + + + + + | CO2 | 24Comment: Testing | 23 - 32 mmol/L | EXTERNAL | | | | performed at [facility], [address] | | LAB | | | | [address], | | | | | | [place] [address] | | | | + + + + + + | Anion Gap | 12Comment: Testing | 5 - 20 mmol/L | EXTERNAL | | | | performed at [facility], [address] | | LAB | | | | [address], | | | | | | [place] [address] | | | | + + + + + + | Glucose, | 108 (H)Comment: Testing | 65 - 99 mg/dL | EXTERNAL | | | Fasting | performed at [facility], [address] | | LAB | | | | [address], | | | | | | [place] [address] | | | | + + + + + + | BUN | 12Comment: Testing | 8 - 25 mg/dL | EXTERNAL | | | | performed at [facility], [address] | | LAB | | | | [address], | | | | | | [place] [address] | | | | + + + + + + | Creatinine | 0.80Comment: Testing | 0.50 - 1.00 | EXTERNAL | | | | performed at [facility], [address] | mg/dL | LAB | | | | [address], | | | | | | [place] [address] | | | | + + + + + + | BUN/Creatin | 15Comment: Testing | | EXTERNAL | | | ine Ratio | performed at [facility], [address] | | LAB | | | | [address], | | | | | | [place] [address] | | | | + + + + + + | Calcium | 9.2Comment: Testing | 8.5 - 10.2 | EXTERNAL | | | | performed at [facility], [address] | mg/dL | LAB | | | | [address], | | | | | | [place] [address] | | | | + + + [...] | | | | | | at [facility], [address] | | | | | | [address], | | | | | | [place] [address] | | | | + + + [...] | EXTERNAL LAB | | performed at [facility] [address] | | + + + + +---------+ [...] [place] Conversion - 06/15/2019 1:42 PM TRES POND LUMBAR SPINE | | LIMITED 2-3 VIEW11/18/2013 [...] At | + + + | RONALD SYKESCHANELWTHROP XR HIPS BILATERAL 11/18/2013 4:56 PM | [...] | | | | | [place] [address] | | | | + + + + + + | Non- | 3.77Comment: Testing | 3.70 - 5.10 | EXTERNAL | | | Red Blood | performed at [facility], [address] | M/uL | LAB | | | Cells | [address], | | | | | Counted | [place] [address] | | | | + + + + + + | Hemoglobin | 10.8 (L)Comment: Testing | 11.3 - 15.5 | EXTERNAL | | | | performed at [facility], [address] | g/dL | LAB | | | | [address], | | | | | | [place] [address] | | | | + + + + + + | Hematocrit, | 31.9 (L)Comment: Testing | 34.0 - 46.0 % | EXTERNAL | | | POC | performed at [facility], [address] | | LAB | | | | [address], | | | | | | [place] [address] | | | | + + + + + + | MCV | 84.8Comment: Testing | 80.0 - 100.0 fl | EXTERNAL | | | | performed at [facility], [address] | | LAB | | | | [address], | | | | | | [place] [address] | | | | + + + + + + | MCH | 28.8Comment: Testing | 27.0 - 34.0 pg | EXTERNAL | | | | performed at [facility], [address] | | LAB | | | [address], | | | | | | [place] [address] | | | | + + + + + + | MCHC | 33.9Comment: Testing | 32.0 - 35.5 | EXTERNAL | | | | performed at [facility], [address] | g/dL | LAB | | | | [address], | | | | | | [place], [place] [address] | | | | + + + + + + | RDW-CV | 37.6Comment: Testing | 37 - 53 fl | EXTERNAL | | | | performed at [facility], [address] | | LAB | | | | [address], | | | | | | [place] [address] | | | | + + + + + + | Platelet | 183Comment: Testing | 150 - 400 K/uL | EXTERNAL | | | Count | performed at [facility], [address] | | LAB | | | Plasma | [address], | | | | | | [place] [address] | | | | + + + + + + | MPV | 7.9Comment: Testing | fl | EXTERNAL | | | | performed at [facility], [address] | | LAB | | | | [address], | | | | | | [place] [address] | | | | + + + + + + | Differentia | AUTOMATEDComment: | | EXTERNAL | | | l Type | Testing performed at | | LAB | | | | [facility], [address] | | | | | | [address], [place] | | | | | | [address] | | | | + + + [...] EXTERNAL | | | | performed at [facility], [address] | uIU/mL | LAB | | | | [address], | | | | | | [place] [address] | | | | + + + [...] EXTERNAL | | | | performed at [facility], [address] | | LAB | | | | [address], | | | | | | [place] [address] | | | | + + + [...] EXTERNAL | | | | performed at [facility], [address] | | LAB | | | | [address], | | | | | | [place] [address] | | | | + + + [...] | | | | | [place] [address] | | | | + + + + + + | K | 4.2Comment: Testing | 3.5 - 4.9 | EXTERNAL | | | | performed at [facility], [address] | mmol/L | LAB | | | | [address], | | | | | | [place] [address] | | | | + + + + + + | Cl | 104Comment: Testing | 99 - 109 mmol/L | EXTERNAL | | | | performed at [facility], [address] | | LAB | | | [address], | | | | | | [place] [address] | | | | + + + + + + | CO2 | 24Comment: Testing | 23 - 32 mmol/L | EXTERNAL | | | | performed at [facility], [address] | | LAB | | | | [address], | | | | | | [place] [address] | | | | + + + + + + | Anion Gap | 11Comment: Testing | 5 - 20 mmol/L | EXTERNAL | | | | performed at [facility], [address] | | LAB | | | | [address], | | | | | | [place] [address] | | | | + + + + + + | Glucose, | 110 (H)Comment: Testing | 65 - 99 mg/dL | EXTERNAL | | | Fasting | performed at [facility], [address] | | LAB | | | | [address], | | | | | | [place] [address] | | | | + + + + + + | BUN | 11Comment: Testing | 8 - 25 mg/dL | EXTERNAL | | | | performed at [facility], [address] | | LAB | | | | [address], | | | | | | [place] [address] | | | | + + + + + + | Creatinine | 0.73Comment: Testing | 0.50 - 1.00 | EXTERNAL | | | | performed at [facility], [address] | mg/dL | LAB | | | | [address], | | | | | | [place] [address] | | | | + + + + + + | BUN/Creatin | 15Comment: Testing | | EXTERNAL | | | ine Ratio | performed at [facility], [address] | | LAB | | | | [address], | | | | | | [place] [address] | | | | + + + + + + | Calcium | 9.0Comment: Testing | 8.5 - 10.2 | EXTERNAL | | | | performed at [facility], [address] | mg/dL | LAB | | | | [address], | | | | | | [place] [address] | | | | + + + [...] W | | | | | | [address], | | | | | | [place] [address] | | | | + + + [...] EXTERNAL LAB | | Testing performed at [facility] | | | [facility];[place] [address] GRAM STAIN | | | GREATER THAN 10 WBCS/LPF | | | LESS THAN 10 SEC/LPF | | | NO ORGANISMS SEEN | | | Testing performed at [facility], [address] [place] [address], | | | [place] [address] CULTURE | | | 3+ ZITA GLABRATAAbnormal | | | 2+ ZITA DUBLINIENSISAbnormal | | | 2+ KLEBSIELLA OXYTOCAAbnormal | | | 1+ NORMAL UPPER RESPIRATORY | | | CURTIS Testing | | | performed at [facility], [address] [place] [address], [place] [address] | | | REPORT STATUS 11/23/2013 FINAL [...] EXTERNAL LAB | | Testing performed at [facility];[address] | | | [facility];[place] [address] SPECIAL REQUESTS | | | PICC LINE | | | Testing performed at [facility];[address] [facility];[place] [address] CULTURE | | | NO GROWTH 6 DAYS | | | Testing performed at [facility], [facility] | | | [place] [address] REPORT STATUS | | | 11/23/2013 FINAL [...] EXTERNAL LAB | | Testing performed at [facility];[address] | | | [facility];[place] [address] SPECIAL REQUESTS | | | REPEAT TEST USING ALTERNATE ASSAYED CONTROL MATERIAL | | | Testing performed at [facility];[address] | | | [facility];[place] [address] CULTURE | | | NO GROWTH 6 DAYS | | | Testing performed at [facility], [address] [place] [address], | | | [place] [address] REPORT STATUS 11/23/2013 | | | FINAL [...] | Testing performed at | | | [facility];[address] [facility];[place] [address] CULTURE | | | NO GROWTH | | | Testing performed at [facility], [address] [facility], | | | [place] [address] REPORT STATUS | | | 11/18/2013 FINAL [...] | | | | | [place] [address] | | | | + + + + + + | TIBC | 155 (L)Comment: Testing | 260 - 490 ug/dL | EXTERNAL | | | | performed at [facility], [address] | | LAB | | | | [address], | | | | | | [place] [address] | | | | + + + [...] EXTERNAL | | | | performed at [facility], [address] | | LAB | | | | [address], | | | | | | [place] [address] | | | | + + + + + + | Non- | 3.51 (L)Comment: Testing | 3.70 - 5.10 | EXTERNAL | | | Red Blood | performed at [facility], [address] | M/uL | LAB | | | Cells | [address], | | | | | Counted | [place] [address] | | | | + + + + + + | Hemoglobin | 9.6 (L)Comment: Testing | 11.3 - 15.5 | EXTERNAL | | | | performed at [facility], [address] | g/dL | LAB | | | | [address], | | | | | | [place] [address] | | | | + + + + + + | Hematocrit, | 29.5 (L)Comment: Testing | 34.0 - 46.0 % | EXTERNAL | | | POC | performed at [facility], [address] | | LAB | | | | [address], | | | | | | [place] [address] | | | | + + + + + + | MCV | 84.3Comment: Testing | 80.0 - 100.0 fl | EXTERNAL | | | | performed at [facility], [address] | | LAB | | | | [address], | | | | | | [place] [address] | | | | + + + + + + | MCH | 27.5Comment: Testing | 27.0 - 34.0 pg | EXTERNAL | | | | performed at [facility], [address] | | LAB | | | [address], | | | | | | [place] [address] | | | | + + + + + + | MCHC | 32.6Comment: Testing | 32.0 - 35.5 | EXTERNAL | | | | performed at [facility], [address] | g/dL | LAB | | | | [address], | | | | | | [place] [address] | | | | + + + + + + | RDW-CV | 36.3 (L)Comment: Testing | 37 - 53 fl | EXTERNAL | | | | performed at [facility], [address] | | LAB | | | | [address], | | | | | | [place] [address] | | | | + + + + + + | Platelet | 151Comment: Testing | 150 - 400 K/uL | EXTERNAL | | | Count | performed at [facility], [address] | | LAB | | | Plasma | [address], | | | | | | [place] [address] | | | | + + + + + + | MPV | 7.9Comment: Testing | fl | EXTERNAL | | | | performed at [facility], [address] | | LAB | | | | [address], | | | | | | [place] [address] | | | | + + + + + + | Differentia | AUTOMATEDComment: | | EXTERNAL | | | l Type | Testing performed at | | LAB | | | | [facility], [address] | | | | | | [address], [place] | | | | | | [address] | | | | + + + [...] EXTERNAL | | | | performed at [facility], [address] | | LAB | | | | [address], | | | | | | [place] [address] | | | | + + + [...] | | | External | performed at [facility], [address] | | LAB | | | | [address], | | | | | | [place] [address] | | | | + + + + + + + + | Specimen | + + | Blood specimen | | (specimen) | + + + +---------+ + + | Performing | Address | City/State/Zipcode | Phone Number | | Organization | | | | + +---------+ + + | EXTERNAL LAB | | | | + +---------+ + + Vitamin B-12 11/17/2013 5:57 AM PST) + + + + + + | Component | Value | Ref Range | Performed | Pathologist | | | | | At | Signature | + + + + + + | VITAMIN | 417Comment: Testing | 254 - 1,320 | EXTERNAL | | | B-12 | performed at [facility], [address] | pg/mL | LAB | | | | [address], | | | | | | [place] [address] | | | | + + + [...] | | | | | [place] [address] | | | | + + + + + + | K | 3.8Comment: Testing | 3.5 - 4.9 | EXTERNAL | | | | performed at [facility], [address] | mmol/L | LAB | | | | [address], | | | | | | [place] [address] | | | | + + + + + + | Cl | 103Comment: Testing | 99 - 109 mmol/L | EXTERNAL | | | | performed at [facility], [address] | | LAB | | | | [address], | | | | | | [place] [address] | | | | + + + + + + | CO2 | 28Comment: Testing | 23 - 32 mmol/L | EXTERNAL | | | | performed at [facility], [address] | | LAB | | | | [address], | | | | | | [place] [address] | | | | + + + + + + | Anion Gap | 7Comment: Testing | 5 - 20 mmol/L | EXTERNAL | | | | performed at [facility], [address] | | LAB | | | | [address], | | | | | | [place] [address] | | | | + + + + + + | Glucose, | 131 (H)Comment: Testing | 65 - 99 mg/dL | EXTERNAL | | | Fasting | performed at [facility], [address] | | LAB | | | | [address], | | | | | | [place] [address] | | | | + + + + + + | BUN | 7 (L)Comment: Testing | 8 - 25 mg/dL | EXTERNAL | | | | performed at [facility], [address] | | LAB | | | | [address], | | | | | | [place] [address] | | | | + + + + + + | Creatinine | 0.61Comment: Testing | 0.50 - 1.00 | EXTERNAL | | | | performed at [facility], [address] | mg/dL | LAB | | | | [address], | | | | | | [place] [address] | | | | + + + + + + | BUN/Creatin | 11Comment: Testing | | EXTERNAL | | | ine Ratio | performed at [facility], [address] | | LAB | | | | [address], | | | | | | [place] [address] | | | | + + + + + + | Calcium | 8.5Comment: Testing | 8.5 - 10.2 | EXTERNAL | | | | performed at [facility], [address] | mg/dL | LAB | | | [address], | | | | | | [place] [address] | | | | + + + + + + | Protein, | 5.2 (L)Comment: Testing | 6.3 - 8.2 g/dL | EXTERNAL | | | Total | performed at [facility], [address] | | LAB | | | | [address], | | | | | | [place] [address] | | | | + + + + + + | Albumin | 3.1 (L)Comment: Testing | 3.3 - 4.8 g/dL | EXTERNAL | | | | performed at [facility], [address] | | LAB | | | [address], | | | | | | [place] [address] | | | | + + + + + + | Globulin | 2.1Comment: Testing | 1.3 - 4.9 g/dL | EXTERNAL | | | | performed at [facility], [address] | | LAB | | | | [address], | | | | | | [place] [address] | | | | + + + + + + | A/G Ratio | 1.5Comment: Testing | 1.0 - 2.4 | EXTERNAL | | | | performed at [facility], [address] | | LAB | | | | [address], | | | | | | [place] [address] | | | | + + + + + + | Bilirubin | 0.6Comment: Testing | 0.1 - 1.5 mg/dL | EXTERNAL | | | Total | performed at [facility], [address] | | LAB | | | | [address], | | | | | | [place] [address] | | | | + + + + + + | ALP, | 48Comment: Testing | 35 - 115 U/L | EXTERNAL | | | External | performed at [facility], [address] | | LAB | | | | [address], | | | | | | [place] [address] | | | | + + + + + + | AST | 19Comment: Testing | 10 - 45 U/L | EXTERNAL | | | | performed at [facility], [address] | | LAB | | | | [address], | | | | | | [place] [address] | | | | + + + + + + | ALT | 21Comment: Testing | 10 - 65 U/L | EXTERNAL | | | | performed at [facility], [address] | | LAB | | | | [address], | | | | | | [place] [address] | | | | + + + [...] W | | | | | | [address], | | | | | | [place] [address] | | | | + + + [...] | | | | [place] [facility] [place] | mmol/L | LAB | | | | [address];[place], [place] | | | | | | [address] | | | | + + + [...] | Testing performed at | | | [facility] [place] [facility];[place] [address] CULTURE | | | NO GROWTH | | | Testing performed at [facility], [address] [facility], | | | [place] [address] REPORT STATUS | | | 11/17/2013 FINAL [...] | | EN LEVEL | [place] [facility] [place] | ug/mL | LAB | | | | [address];[place] | | | | | | [address] | | | | + + + [...] At | + + + | [facility]RAYSHAWNFAW[facility]ROP XR CHEST 1 VIEW 11/16/2013 6:21 AM [...] | | LAB | | | | [address], | | | | | | [place] [address] | | | | + + + + + + | Non- | 3.54 (L)Comment: Testing | 3.70 - 5.10 | EXTERNAL | | | Red Blood | performed at [facility], [address] | M/uL | LAB | | | Cells | [address], | | | | | Counted | [place] [address] | | | | + + + + + + | Hemoglobin | 10.1 (L)Comment: Testing | 11.3 - 15.5 | EXTERNAL | | | | performed at [facility], [address] | g/dL | LAB | | | | [address], | | | | | | [place] [address] | | | | + + + + + + | Hematocrit, | 29.5 (L)Comment: Testing | 34.0 - 46.0 % | EXTERNAL | | | POC | performed at [facility], [address] | | LAB | | | | [address], | | | | | | [place] [address] | | | | + + + + + + | MCV | 83.4Comment: Testing | 80.0 - 100.0 fl | EXTERNAL | | | | performed at [facility], [address] | | LAB | | | | [address], | | | | | | [place] [address] | | | | + + + + + + | MCH | 28.7Comment: Testing | 27.0 - 34.0 pg | EXTERNAL | | | | performed at [facility], [address] | | LAB | | | | [address], | | | | | | [place] [address] | | | | + + + + + + | MCHC | 34.3Comment: Testing | 32.0 - 35.5 | EXTERNAL | | | | performed at [facility], [address] | g/dL | LAB | | | | [address], | | | | | | [place] [address] | | | | + + + + + + | RDW-CV | 37.6Comment: Testing | 37 - 53 fl | EXTERNAL | | | | performed at [facility], [address] | | LAB | | | | [address], | | | | | | [place] [address] | | | | + + + + + + | Platelet | 176Comment: Testing | 150 - 400 K/uL | EXTERNAL | | | Count | performed at [facility], [address] | | LAB | | | Plasma | [address], | | | | | | [place] [address] | | | | + + + + + + | MPV | 7.8Comment: Testing | fl | EXTERNAL | | | | performed at [facility], [address] | | LAB | | | | [address], | | | | | | [place] [address] | | | | + + + + + + | Differentia | AUTOMATEDComment: | | EXTERNAL | | | l Type | Testing performed at | | LAB | | | | [facility], [address] | | | | | | [place] | | | | | | [address] | | | | + + + [...] | | | | performed at [facility];[address] | | LAB | | | | [address];[place], [place] | | | | | | [address] | | | | + + + [...] | | | | performed at [facility];[address] | | LAB | | | | [address];[place], [place] | | | | | | [address] | | | | + + + [...] | | EN LEVEL | performed at [facility];[address] | ug/mL | LAB | | | | [address];[place] | | | | | | [address] | | | | + + + [...] | | | | performed at [facility];[address] | mmol/L | LAB | | | | [address];[place] | | | | | | [address] | | | | + + + + + + | K | 3.1 (L)Comment: Testing | 3.5 - 4.9 | EXTERNAL | | | | performed at [facility];[address] | mmol/L | LAB | | | | [address];[place] | | | | | | [address] | | | | + + + + + + | Cl | 109Comment: Testing | 99 - 109 mmol/L | EXTERNAL | | | | performed at [facility];[address] | | LAB | | | | [address];[place] | | | | | | [address] | | | | + + + + + + | CO2 | 27Comment: Testing | 23 - 32 mmol/L | EXTERNAL | | | | performed at [facility];[address] | | LAB | | | | [address];[place] | | | | | | [address] | | | | + + + + + + | Anion Gap | 10Comment: Testing | 5 - 20 mmol/L | EXTERNAL | | | | performed at [facility];[address] | | LAB | | | | [address];[place] | | | | | | [address] | | | | + + + + + + | Glucose, | 78Comment: Testing | 65 - 99 mg/dL | EXTERNAL | | | Fasting | performed at [facility];[address] | | LAB | | | | [address];[place] | | | | | | [address] | | | | + + + + + + | BUN | 7 (L)Comment: Testing | 8 - 25 mg/dL | EXTERNAL | | | | performed at [facility];[address] | | LAB | | | | [address];[place] | | | | | | [address] | | | | + + + + + + | Creatinine | 0.77Comment: Testing | 0.50 - 1.00 | EXTERNAL | | | | performed at [facility];[address] | mg/dL | LAB | | | | [address];[place] | | | | | | [address] | | | | + + + + + + | BUN/Creatin | 9Comment: Testing | | EXTERNAL | | | ine Ratio | performed at [facility];[address] | | LAB | | | | [address];[place] | | | | | | [address] | | | | + + + + + + | Calcium | 7.8 (L)Comment: Testing | 8.5 - 10.2 | EXTERNAL | | | | performed at [facility];[address] | mg/dL | LAB | | | | [address];[place] | | | | | | [address] | | | | + + + [...] | | | | | at [facility];[address] [place] [address] | | | | | | [facility];[place] [address] | | | | + + + [...] | | EN LEVEL | performed at [facility];[address] | ug/mL | LAB | | | | [address];[place], [place] | | | | | | [address] | | | | + + + [...] | | | | performed at [facility];[address] | | LAB | | | | [address];[place] | | | | | | [address] | | | | + + + [...] | | | | | | ACUTE AR Testing | | | | | | performed at [facility] | | | | | | [facility];[place], [place] | | | | | | [address] | | | | + + + [...] | | | | performed at [facility] | | LAB | | | | [address];[place] | | | | | | [address] | | | | + + + [...] | | EN LEVEL | performed at [facility];[address] | ug/mL | LAB | | | | [address];[place], [place] | | | | | | [address] | | | | + + + [...] TR | | | Vmax: 2.44 m/s Bindery Machine Setter/Set Up Operator: Authenticated by: Finesse Nunez | | [...] 23.26 cmAVA Vmax: 3.14 cm2AVA (VTI): 2.90 by4DECQ Dopp: | | 4.57 l/nizk6ANLU Dopp: 7.95 l/minHR: 117.60 BPMLVOT maxP.36 mmHgLVOT [...] maxP.88 mmHgTR Vmax: | | 2.44 m/s Bindery Machine Setter/Set Up Operator: ABAuthenticated by: Finesse Aponte Date/Time: 11-15-2013 [...] |TR Vmax: 2.44 m/s | | | |Bindery Machine Setter/Set Up Operator: AB | |Authenticated by: Finesse Nunez [...] | | EN LEVEL | performed at [facility];[address] | ug/mL | LAB | | | | [address];[place], [place] | | | | | | [address] | | | | + + + [...] | | | | performed at [facility];[address] | mmol/L | LAB | | | | [address];[place] | | | | | | [address] | | | | + + + + + + | K | 3.9Comment: Testing | 3.5 - 4.9 | EXTERNAL | | | | performed at [facility];[address] | mmol/L | LAB | | | | [address];[place] | | | | | | [address] | | | | + + + + + + | Cl | 114 (H)Comment: Testing | 99 - 109 mmol/L | EXTERNAL | | | | performed at [facility];[address] | | LAB | | | | [address];[place] | | | | | | [address] | | | | + + + + + + | CO2 | 20 (L)Comment: Testing | 23 - 32 mmol/L | EXTERNAL | | | | performed at [facility];[address] | | LAB | | | | [address];[place] | | | | | | [address] | | | | + + + + + + | Anion Gap | 14Comment: Testing | 5 - 20 mmol/L | EXTERNAL | | | | performed at [facility];[address] | | LAB | | | | [address];[place] | | | | | | [address] | | | | + + + + + + | Glucose, | 153 (H)Comment: Testing | 65 - 99 mg/dL | EXTERNAL | | | Fasting | performed at [facility];[address] | | LAB | | | | [address];[place] | | | | | | [address] | | | | + + + + + + | BUN | 8Comment: Testing | 8 - 25 mg/dL | EXTERNAL | | | | performed at [facility];[address] | | LAB | | | | [address];[place] | | | | | | [address] | | | | + + + + + + | Creatinine | 0.92Comment: Testing | 0.50 - 1.00 | EXTERNAL | | | | performed at [facility];[address] | mg/dL | LAB | | | | [address];[place] | | | | | | [address] | | | | + + + + + + | BUN/Creatin | 9Comment: Testing | | EXTERNAL | | | ine Ratio | performed at [facility];[address] | | LAB | | | | [address];[place] | | | | | | [address] | | | | + + + + + + | Calcium | 7.4 (L)Comment: Testing | 8.5 - 10.2 | EXTERNAL | | | | performed at [facility];[address] | mg/dL | LAB | | | | [address];[place], [place] | | | | | | [address] | | | | + + + [...] | | | | | at [facility];[address];[place] [address] | | | | + + + [...] | | | | performed at [facility];[address] | | LAB | | | | [address];[place] | | | | | | [address] | | | | + + + [...] | | | | | | ACUTE AR Testing | | | | | | performed at [facility];[address] | | | | | | [address];[place], [place] | | | | | | [address] | | | | + + + [...] | | | | performed at [facility];[address] | | LAB | | | | [address];[place] | | | | | | [address] | | | | + + + [...] | | EN LEVEL | performed at [facility];[address] | ug/mL | LAB | | | | [address];[place], [place] | | | | | | [address] | | | | + + + [...] At | + + + | RONALD WAYNEFAWTHROP XR CHEST 1 VIEW 11/15/2013 6:08 AM [...] + + | Historically converted procedure from [facility] environment | EXTERNAL LAB | + [...] | | | | performed at [facility];[address] | mmol/L | LAB | | | | [address];[place], [place] | | | | | | [address] | | | | + + + [...] | | | | performed at [facility];[address] | | LAB | | | | [address];[place], [place] | | | | | | [address] | | | | + + + [...] | | | | | | ACUTE AR CKTRP PHONED TO | | | | | | ICU GAYLE N AT 0540 BY | | | | | | LJREAD BACK RESULTS | | | | | | VERIFIEDTesting | | | | | | performed at [facility];[address] | | | | | | [address];[place] | | | | | | [address] | | | | + + + [...] | | | | | [place] [address] | | | | + + + + + + | Non- | 3.94Comment: Testing | 3.70 - 5.10 | EXTERNAL | | | Red Blood | performed at [facility], [address] | M/uL | LAB | | | Cells | [address], | | | | | Counted | [place] [address] | | | | + + + + + + | Hemoglobin | 10.9 (L)Comment: Testing | 11.3 - 15.5 | EXTERNAL | | | | performed at [facility], [address] | g/dL | LAB | | | | [address], | | | | | | [place] [address] | | | | + + + + + + | Hematocrit, | 33.7 (L)Comment: Testing | 34.0 - 46.0 % | EXTERNAL | | | POC | performed at [facility], [address] | | LAB | | | | [address], | | | | | | [place] [address] | | | | + + + + + + | MCV | 85.6Comment: Testing | 80.0 - 100.0 fl | EXTERNAL | | | | performed at [facility], [address] | | LAB | | | | [address], | | | | | | [place] [address] | | | | + + + + + + | MCH | 27.7Comment: Testing | 27.0 - 34.0 pg | EXTERNAL | | | | performed at [facility], [address] | | LAB | | | | [address], | | | | | | [place] [address] | | | | + + + + + + | MCHC | 32.3Comment: Testing | 32.0 - 35.5 | EXTERNAL | | | | performed at [facility], [address] | g/dL | LAB | | | | [address], | | | | | | [place] [address] | | | | + + + + + + | RDW-CV | 37.6Comment: Testing | 37 - 53 fl | EXTERNAL | | | | performed at [facility], [address] | | LAB | | | [address], | | | | | | [place] [address] | | | | + + + + + + | Platelet | 196Comment: Testing | 150 - 400 K/uL | EXTERNAL | | | Count | performed at [facility], [address] | | LAB | | | Plasma | [address], | | | | | | [place] [address] | | | | + + + + + + | MPV | 7.3Comment: Testing | fl | EXTERNAL | | | | performed at [facility], [address] | | LAB | | | | [address], | | | | | | [place] [address] | | | | + + + + + + | Differentia | AUTOMATEDComment: | | EXTERNAL | | | l Type | Testing performed at | | LAB | | | | [facility], [address] | | | | | | [place] | | | | | | [address] | | | | + + + [...] | | | Serum | performed at [facility];[address] | mOsm/kg | LAB | | | | [address];[place], [place] | | | | | | [address] | | | | + + + [...] | | | | performed at [facility];8 | | LAB | | | | [address];[place] | | | | | | [address] | | | | + + + [...] | | EN LEVEL | performed at [facility];[address] | ug/mL | LAB | | | | [address];[place], [place] | | | | | | [address] | | | | + + + [...] | | | | performed at [facility];[address] | mmol/L | LAB | | | | [address];[place] | | | | | | [address] | | | | + + + + + + | K | 3.2 (L)Comment: Testing | 3.5 - 4.9 | EXTERNAL | | | | performed at [facility];[address] | mmol/L | LAB | | | | [address];[place] | | | | | | [address] | | | | + + + + + + | Cl | 117 (H)Comment: Testing | 99 - 109 mmol/L | EXTERNAL | | | | performed at [facility];[address] | | LAB | | | | [address];[place] | | | | | | [address] | | | | + + + + + + | CO2 | 13 (LL)Comment: CO2 | 23 - 32 mmol/L | EXTERNAL | | | | PHONED TO AIDEE Butt AT | | LAB | | | | 0520 BY LJREAD BACK | | | | | | RESULTS VERIFIEDTesting | | | | | | performed at [facility];[address] | | | | | | [address];[place] | | | | | | [address] | | | | + + + + + + | Anion Gap | 20Comment: Testing | 5 - 20 mmol/L | EXTERNAL | | | | performed at [facility];[address] | | LAB | | | | [address];[place] | | | | | | [address] | | | | + + + + + + | Glucose, | 130 (H)Comment: Testing | 65 - 99 mg/dL | EXTERNAL | | | Fasting | performed at [facility];[address] | | LAB | | | | [address];[place] | | | | | | [address] | | | | + + + + + + | BUN | 8Comment: Testing | 8 - 25 mg/dL | EXTERNAL | | | | performed at [facility];[address] | | LAB | | | | [address];[place] | | | | | | [address] | | | | + + + + + + | Creatinine | 0.69Comment: Testing | 0.50 - 1.00 | EXTERNAL | | | | performed at [facility];[address] | mg/dL | LAB | | | | [address];[place] | | | | | | [address] | | | | + + + + + + | BUN/Creatin | 12Comment: Testing | | EXTERNAL | | | ine Ratio | performed at [facility];[address] | | LAB | | | | [address];[place] | | | | | | [address] | | | | + + + + + + | Calcium | 6.7 (L)Comment: Testing | 8.5 - 10.2 | EXTERNAL | | | | performed at [facility];[address] | mg/dL | LAB | | | | [address];[place] | | | | | | [address] | | | | + + + + + + | Protein, | 5.2 (L)Comment: Testing | 6.3 - 8.2 g/dL | EXTERNAL | | | Total | performed at [facility];[address] | | LAB | | | | [address];[place] | | | | | | [address] | | | | + + + + + + | Albumin | 3.3Comment: Testing | 3.3 - 4.8 g/dL | EXTERNAL | | | | performed at [facility];[address] | | LAB | | | | [address];[place] | | | | | | [address] | | | | + + + + + + | Globulin | 1.9Comment: Testing | 1.3 - 4.9 g/dL | EXTERNAL | | | | performed at [facility];[address] | | LAB | | | | [address];[place] | | | | | | [address] | | | | + + + + + + | A/G Ratio | 1.8Comment: Testing | 1.0 - 2.4 | EXTERNAL | | | | performed at [facility];[address] | | LAB | | | | [address];[place] | | | | | | [address] | | | | + + + + + + | Bilirubin | 0.2Comment: Testing | 0.1 - 1.5 mg/dL | EXTERNAL | | | Total | performed at [facility];[address] | | LAB | | | | [address];[place] | | | | | | [address] | | | | + + + + + + | ALP, | 47Comment: Testing | 35 - 115 U/L | EXTERNAL | | | External | performed at [facility];[address] | | LAB | | | | [address];[place] | | | | | | [address] | | | | + + + + + + | AST | 49 (H)Comment: Testing | 10 - 45 U/L | EXTERNAL | | | | performed at [facility];[address] | | LAB | | | | [address];[place] | | | | | | [address] | | | | + + + + + + | ALT | 61Comment: Testing | 10 - 65 U/L | EXTERNAL | | | | performed at [facility];[address] | | LAB | | | | [address];[place] | | | | | | [address] | | | | + + + [...] | | | | | at [facility];[address];[place] [address] | | | | + + + [...] | | Fingerstick | performed at [facility];[address] | | LAB | | | | [address];[place], [place] | | | | | | [address] | | | | + + + [...] | | | | | FINESSE NUNEZ (209) on | | | | | | 11/15/2013 3:18:47 PM | | | | + + + + + + + + | Specimen | + + | | + + + + + | Narrative | Performed At | + + + | [facility] | EXTERNAL LAB | + + + + +---------+ + + | Performing | Address | City/State/Zipcode | Phone Number | | Organization | | | | + +---------+ + + | EXTERNAL LAB | | | | + +---------+ + + POC CG 4, ISTALonny Arterial (11/14/2013 11:47 PM PST) + + [...] | LAB | | | | [facility];[address];[place] [address] | | | | + + + + + + | PCO2 ART | 40Comment: Testing | 35 - 45 mmHg | EXTERNAL | | | | performed at [facility];[address] | | LAB | | | | [address];[place] | | | | | | [address] | | | | + + + + + + | PO2 ART | 283 (H)Comment: Testing | 80 - 105 mmHg | EXTERNAL | | | | performed at [facility];[address] | | LAB | | | | [address];[place] | | | | | | [address] | | | | + + + + + + | Lactate, | 3.7 (H)Comment: Testing | 0.36 - 1.25 | EXTERNAL | | | Arterial | performed at [facility];[address] | mmol/L | LAB | | | | [address];[place] | | | | | | [address] | | | | + + + + + + | HCO3 ART | 14 (L)Comment: Testing | 22 - 26 mmol/L | EXTERNAL | | | | performed at [facility];[address] | | LAB | | | | [address];[place] | | | | | | [address] | | | | + + + + + + | POC | 15 (L)Comment: Testing | 23 - 27 mEq/L | EXTERNAL | | | APPEARANCE | performed at [facility];[address] | | LAB | | | UA | [address];[place] | | | | | | [address] | | | | + + + + + + | Base | 15 (H)Comment: Testing | 0.0 - 2.0 | EXTERNAL | | | deficit | performed at [facility];[address] | mmol/L | LAB | | | | [address];[place] | | | | | | [address] | | | | + + + + + + | O2 SAT ART | 100 (H)Comment: Testing | 95 - 98 % | EXTERNAL | | | | performed at [facility];[address] | | LAB | | | | [address];[place] | | | | | | [address] | | | | + + + + + + | FiO2, POC | 70Comment: Testing | % | EXTERNAL | | | | performed at [facility];[address] | | LAB | | | | [address];[place] | | | | | | [address] | | | | + + + + + + | Comment, | Tidal Volume = | | EXTERNAL | | | POC | 500Comment: Peep = 5Resp | | LAB | | | | Rate = 15Testing | | | | | | performed at [facility];[address] | | | | | | [address];[place] | | | | | | [address] | | | | + + + [...] | | | | performed at [facility];[address] | mmol/L | LAB | | | | [address];[place] | | | | | | [address] | | | | + + + [...] | | | (Calc) | performed at [facility];[address] | mmol/L | LAB | | | | [address];[place] | | | | | | [address] | | | | + + + + + + | pH, Bld | 7.179 (L)Comment: | 7.300 - 7.450 | EXTERNAL | | | | Testing performed at | | LAB | | | | [facility];[address];[place] [address] | | | | + + + [...] | | Patient | performed at [facility];[address] | | LAB | | | | [address];[place] | | | | | | [address] | | | | + + + [...] | | | | performed at [facility];[address] | | | | | | [facility];[place], [place] | | | | | | [address] | | | | + + + [...] | | | | performed at [facility];[address] | | LAB | | | | [address];[place] | | | | | | [address] | | | | + + + + + + | Non- | 4.41Comment: Testing | 3.70 - 5.10 | EXTERNAL | | | Red Blood | performed at [facility];[address] | M/uL | LAB | | | Cells | [address];[place] | | | | | Counted | [address] | | | | + + + + + + | Hemoglobin | 12.7Comment: Testing | 11.3 - 15.5 | EXTERNAL | | | | performed at [facility];[address] | g/dL | LAB | | | | [address];[place] | | | | | | [address] | | | | + + + + + + | Hematocrit, | 37.4Comment: Testing | 34.0 - 46.0 % | EXTERNAL | | | POC | performed at [facility];[address] | | LAB | | | | [address];[place] | | | | | | [address] | | | | + + + + + + | MCV | 84.7Comment: Testing | 80.0 - 100.0 fl | EXTERNAL | | | | performed at [facility];[address] | | LAB | | | | [address];[place] | | | | | | [address] | | | | + + + + + + | MCH | 28.8Comment: Testing | 27.0 - 34.0 pg | EXTERNAL | | | | performed at [facility];[address] | | LAB | | | | [address];[place] | | | | | | [address] | | | | + + + + + + | MCHC | 34.0Comment: Testing | 32.0 - 35.5 | EXTERNAL | | | | performed at [facility];[address] | g/dL | LAB | | | | [address];[place] | | | | | | [address] | | | | + + + + + + | RDW-CV | 37.2Comment: Testing | 37 - 53 fl | EXTERNAL | | | | performed at [facility];[address] | | LAB | | | | [address];[place] | | | | | | [address] | | | | + + + + + + | Platelet | 296Comment: Testing | 150 - 400 K/uL | EXTERNAL | | | Count | performed at [facility];[address] | | LAB | | | Plasma | [address];[place] | | | | | | [address] | | | | + + + + + + | MPV | 7.2Comment: Testing | fl | EXTERNAL | | | | performed [place] [facility] [place] | | [place] | | | | [address];[place] | | | | | | [address] | | | | + + + + + + | Differentia | AUTOMATEDComment: | | EXTERNAL | | | l Type | Testing performed at | | LAB | | | | [facility] [place];[place] [id number] | | | | + + + [...] | | | | performed at [facility] [place] | | LAB | | | | [address];[place] | | | | | | [address] | | | | + + + [...] | | | | performed at [facility] [place] | | LAB | | | | [address];[place] | | | | | | [address] | | | | + + + [...] | | EN LEVEL | performed at [facility] [place] | ug/mL | LAB | | | | [address];[place], [place] | | | | | | [address] | | | | + + + [...] | | Total | performed at [facility] [place] | | LAB | | | | [address];[place] | | | | | | [address] | | | | + + + + + + | Albumin | 3.1 (L)Comment: Testing | 3.3 - 4.8 g/dL | EXTERNAL | | | | performed at [facility] [place] | | LAB | | | | [address];[place] | | | | | | [address] | | | | + + + + + + | Bilirubin | 0.2Comment: Testing | 0.1 - 1.5 mg/dL | EXTERNAL | | | Total | performed [place] [facility] [place] | | LAB | | | | [address];[place] | | | | | | [address] | | | | + + + + + + | Bilirubin | <0.1Comment: Testing | 0.0 - 0.3 mg/dL | EXTERNAL | | | Direct | performed at [facility] [place] | | LAB | | | | [address];[place] | | | | | | [address] | | | | + + + + + + | ALP, | 76Comment: Testing | 35 - 115 U/L | EXTERNAL | | | External | performed at [facility] [place] | | LAB | | | | [address];[place] | | | | | | [address] | | | | + + + + + + | AST | 75 (H)Comment: Testing | 10 - 45 U/L | EXTERNAL | | | | performed at [facility] [place] | | LAB | | | | [address];[place] | | | | | | [address] | | | | + + + + + + | ALT | 67 (H)Comment: Testing | 10 - 65 U/L | EXTERNAL | | | | performed at [facility] [place] | | LAB | | | | [address];[place] | | | | | | [address] | | | | + + + [...] | | | | performed at [facility] [place] | mmol/L | LAB | | | | [address];[place] | | | | | | [address] | | | | + + + + + + | K | 3.0 (L)Comment: Testing | 3.5 - 4.9 | EXTERNAL | | | | performed at [facility] [place] | mmol/L | LAB | | | | [address];[place] | | | | | | [address] | | | | + + + + + + | Cl | 114 (H)Comment: Testing | 99 - 109 mmol/L | EXTERNAL | | | | performed at [facility] [place] | | LAB | | | | [address];[place] | | | | | | [address] | | | | + + + + + + | CO2 | 16 (L)Comment: Testing | 23 - 32 mmol/L | EXTERNAL | | | | performed at [facility] [place] | | LAB | | | | [address];[place] | | | | | | [address] | | | | + + + + + + | Anion Gap | 16Comment: Testing | 5 - 20 mmol/L | EXTERNAL | | | | performed at [facility] [place] | | LAB | | | | [address];[place] | | | | | | [address] | | | | + + + + + + | Glucose, | 187 (H)Comment: Testing | 65 - 99 mg/dL | EXTERNAL | | | Fasting | performed at [facility] [place] | | LAB | | | | [address];[place] | | | | | | [address] | | | | + + + + + + | BUN | 10Comment: Testing | 8 - 25 mg/dL | EXTERNAL | | | | performed at [facility] [facility] | | LAB | | | | [address];[place] | | | | | | [address] | | | | + + + + + + | Creatinine | 0.79Comment: Testing | 0.50 - 1.00 | EXTERNAL | | | | performed at [facility] | mg/dL | LAB | | | | [address];[place] | | | | | | [address] | | | | + + + + + + | BUN/Creatin | 13Comment: Testing | | EXTERNAL | | | ine Ratio | performed at [facility] | | LAB | | | | [address];[place] | | | | | | [address] | | | | + + + + + + | Calcium | 6.5 (L)Comment: Testing | 8.5 - 10.2 | EXTERNAL | | | | performed at [facility] | mg/dL | LAB | | | | [address];[place] | | | | | | [address] | | | | + + + [...] | | | | | at [facility];[place] [address] | | | | + + + [...] Conversion - 06/15/2019 1:42 PM PDT RONALD [id number] years | | FemaleCT HEAD WO CONTRAST11/14/2013 [...] At | + + + | RONALD RAMSEYWTHRLEIGHANN XR CHEST 1 VIEW 11/14/2013 8:56 PM [...] | Testing performed at | | | [facility] [facility];[place] [address] GRAM STAIN | | | GREATER THAN 10 WBCS/LPF | | | LESS THAN 10 SEC/LPF | | | 2+ GRAM POSITIVE COCCI | | | 1+ GRAM POSITIVE RODS | | | Testing performed at [facility], [address] | | | [place] [address] CULTURE | | | 2+ NORMAL UPPER RESPIRATORY CURTIS | | | Testing performed at [facility], [address] | | | [place] [address] REPORT STATUS | | | 11/16/2013 FINAL [...] | | | | performed at [facility] | | LAB | | | | [address];[place] | | | | | | [address] | | | | + + + + + + | RBC, UA | 0-2Comment: Testing | 0 - 5 /hpf | EXTERNAL | | | | performed at [facility] | | LAB | | | | [address];[place] | | | | | | [address] | | | | + + + + + + | Epithelial | NONE SEENComment: | /lpf | EXTERNAL | | | Cells | Testing performed at | | LAB | | | | [facility];[address];[place] [address] | | | | + + + + + + | Bacteria, | TRACE (A)Comment: | | EXTERNAL | | | UA | Testing performed at | | LAB | | | | [facility];[address];[place] [address] | | | | + + + [...] | | | | performed at [facility];[address] | | LAB | | | | [address];[place], [place] | | | | | | [address] | | | | + + + + + + | Clarity, | CLEARComment: Testing | | EXTERNAL | | | Urine | performed at [facility];[address] | | LAB | | | | [address];[place] | | | | | | [address] | | | | + + + + + + | Specific | 1.004Comment: Testing | 1.001 - 1.035 | EXTERNAL | | | [place], | performed at [facility];[address] | | LAB | | | Urine | [address];[place] | | | | | | [address] | | | | + + + + + + | Leukocyte | TRACE (A)Comment: | | EXTERNAL | | | Esterase, | Testing performed at | | LAB | | | Urine | [facility];[address];[place] [address] | | | | + + + + + + | Nitrite, | NEGATIVEComment: Testing | | EXTERNAL | | | Urine | performed at [facility];[address] | | LAB | | | | [address];[place] | | | | | | [address] | | | | + + + + + + | Urobilinoge | 0.2Comment: Testing | mg/dL | EXTERNAL | | | n, Urine | performed at [facility];[address] | | LAB | | | | [address];[place] | | | | | | [address] | | | | + + + + + + | Protein, | NEGATIVEComment: Testing | mg/dL | EXTERNAL | | | Urine | performed at [facility];[address] | | LAB | | | | [address];[place] | | | | | | [address] | | | | + + + + + + | pH, Urine | 5.0Comment: Testing | 4.6 - 8.0 | EXTERNAL | | | | performed at [facility];[address] | | LAB | | | | [address];[place] | | | | | | [address] | | | | + + + + + + | Blood, | NEGATIVEComment: Testing | | EXTERNAL | | | Urine | performed at [facility];[address] | | LAB | | | | [address];[place] | | | | | | [address] | | | | + + + + + + | Ketones | NEGATIVEComment: Testing | mg/dL | EXTERNAL | | | | performed at [facility];[address] | | LAB | | | | [address];[place] | | | | | | [address] | | | | + + + + + + | Bilirubin, | NEGATIVEComment: Testing | | EXTERNAL | | | Urine | performed at [facility];[address] | | LAB | | | | [address];[place] | | | | | | [address] | | | | + + + + + + | Glucose, | NEGATIVEComment: Testing | mg/dL | EXTERNAL | | | Urine | performed at [facility];[address] | | LAB | | | | [address];[place] | | | | | | [address] | | | | + + + [...] EXTERNAL LAB | | Testing performed at [facility];[address] [place] [address];[place] [address] MRSA PCR | | | NEGATIVE Testing performed at | | | [facility];[address] [place] [address];[place] [address] | | + + + + +---------+ [...] | | Fingerstick | performed at [facility];[address] | | LAB | | | | [address];[place] | | | | | | [address] | | | | + + + [...]
--- OUTSIDE RECORDS SUMMARY | ~2020-08-10 | XMS | Encounter Summary ---
Demographics + + + | Address | [address] | | | [place] [address] | + + + | Home Phone [...] | + + +---------+ + | Ntahalia Koes | ECON | Unknown | | + + +---------+ + Care Team Providers + +------+ + | Care Biomedical Engineering Technologist Name | Role | Phone [...] DO | Alfredo DO | | | | | back pain | [address] | | | | | Closed | [address] | [facility], | | | | | compression | [place], | [place] [address] | | | | | fracture of | [place] [address] | Phone: | | | | | fifth lumbar | Phone: | [phone] | | | | | vertebra | [phone] | Fax: | | | | | sequela | Fax: | [phone] | | | | | Degenerative | [phone] | | | | | | lumbar [...] + + | 09/18/ | Office | [facility] | Alfredo Casillas, DO | S/P insertion of | | 2019 | Visit | [facility] | [address] | spinal cord | | | | [address] | [place] [address] | stimulator (Primary | | | | [address] [place], | [phone] | Dx); Spinal stenosis | | | | [place] [address] | | of lumbosacral | | | | [phone] | | region; Lumbar | | | [...] Casillas DO - 09/18/2019 9:10 AM PST [facility]: Interventional Pain Management 09/18/2019 Kori Caputo Joanne 1945 Chief Complaint Patient presents with Follow-up [...] (HCC) 2004 breast Cataract Cerebrovascular accident (CVA) ([place] [...] CORD STIMULATOR; Surgeon: Suly Hutchins MD; Location: [facility] [place] OR OTHER SURGICAL HISTORY EPIDURAL STEROID [...] Inhale into the lungs. Yes Historical Provider, Ascorbic Acid (VITAMIN C) 1000 MG tablet Take 1,000 mg by mouth Daily. Yes Historical Pro viderMD Calcium Carb-Cholecalciferol (CALCIUM 1000 + D PO) Take by mouth. Yes Historical Provide rMD chlorhexidine (HIBICLENS) 4 % external liquid Apply to affected area the night before and t he morning of surgery. 07/19/19 Yes Maykel Hutchins MD clonazePAM (KLONOPIN) 1 mg tablet Take 1-2 mg by mouth nightly as needed for Anxiety. Yes Historical Provider, fentaNYL (DURAGESIC) 12 mcg/hr Place 1 patch onto the skin every 72 hours for 30 days. 08/3110/17/19 Yes Denystamara Gloveraiso, DO HYDROcodone-acetaminophen (NORCO) 10-325 mg per tablet Take 1 tablet by mouth every 6 hours as needed for Pain for up to 30 days. 09/17/19 10/17/19 Yes Denys Gloveraiso, DO levothyroxine (SYNTHROID) 100 mcg tablet Take 100 mcg by mouth every morning (before breakf ast). Yes Historical Provider, lidocaine-prilocaine (EMLA) cream Apply to affected area 2 or 3 times a day 09/17/19 Yes Denys Gloveraiso, DO Loratadine 10 MG CAPS Take 10 [...] nostril after 2 minutes). 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 The possibility of "s ound alike" supervisor lead burning errors, and additions, or deletions may occur. [...] [place] | | | | | | [id number] | | | | | | | | +--------+---------+ + + + | 09/01/ | Office | Cardiology | Monserrat Weems | | 2019 | Visit | | [address] | | | | | | [address] | | | | | | [place] [address] | | | | | | [phone] | | | | | | | [...]
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
--- OUTSIDE RECORDS SUMMARY | ~2020-08-10 | XMS | Encounter Summary ---
Demographics + + + | Address | [address] | | | [place] [address] | + + + | Home Phone [...] Team Providers + +------+ + | Care Ui Architect Name | Role | Phone | [...] + + | 04/01/ | Telephone | [facility] | Miesha Jeter | Yehuda (SCREENED FOR | | 2019 | | CARDIOLOGY DANIEL Holloway, Mixed Animal Veterinarian | APPT ) | | | | [address] | | | | | | [place], [place] | | | | | | [address] | | | | | | [phone] | | | +--------+ + + + [...] Miscellaneous Notes Telephone Encounter - Miesha Jeter, Mixed Animal Veterinarian - 04/01/2020 3:48 PM Oseas ford has [...] | | | | | | [place] | | | | | | [address] | | | | | | | | +--------+---------+ + + + | 09/01/ | Office | Cardiology | Monserrat Weems | | 2019 | Visit | | [address] | | | | | | [address] | | | | | | [place] [address] | | | | | | [phone] | | | | | | | | +--------+---------+ + + + documented as of this encounter Visit Diagnoses Not on filedocumented in this encounter"
--- OUTSIDE RECORDS SUMMARY | ~2020-08-10 | XMS | Encounter Summary ---
Demographics + + + | Address | [address] | | | [place] [address] | + + + | Home Phone [...] Team Providers + +------+ + | Care Back Shoe Cutter Name | Role | Phone | [...] | MRI Lumbar | [place], | [address] | | | | | Spine wo | [place] [address] | Phone: | | | | | Contrast | Phone: | [phone] | | | | | | [phone] | Fax: | | | | | | Fax: | [phone] | | | | | | [phone] | | +--------+--------+ + + + + Reason for Visit + + + | Reason | Comments | + + + | Follow-up | Discuss Injections | + + + Encounter Details +--------+---------+ + + + | Date | Type | Department | Care Team | Description | +--------+---------+ + + + | 04/03/ | Office | [facility] [place] | Nick Martinez, | Lumbar radiculopathy | | 2018 | Visit | PHYSIATRY [address] | PA-C [address] | (Primary Dx); BACK | | | | [address] | [address] [place] | PAIN, LUMBAR; | | | | [place], [place] | [place] [address] | SACROILIITIS; DDD | | | | [address] | [phone] | (degenerative disc | | | | [phone] | | disease), lumbar; | | | [...] of the procedure you must provide a light truck driver to take you home. For [...] press against a nerve. Date Last Reviewed: 08/03/201519990906-0721 [employer]. [address] [place] [address], [place] [address]. All righ ts reserved. This information is [...] and working more hours due to the [employer] up. Her pain ba ck is [...] apparent deficits with short or mcc memory. She has appropriate fund of knowledge [...] | | | | | [place] [address] | | | | | | [phone] | | | | | | | [...]
--- OUTSIDE RECORDS SUMMARY | ~2020-08-10 | XMS | Encounter Summary ---
Demographics + + + | Address | [address] | | | [place] [address] | + + + | Home Phone [...] Team Providers + +------+ + | Care Diazo Technician Name | Role | Phone | + +------+ + | Wendi Aiken | PCP | | + +------+ + Reason for Visit + +--------+ + | Reason | Onset | Comments | | | Date | | + +--------+ + | Results, Imaging | 04/06/ | MRI/Cancelled Injection | | | 2017 | | + +--------+ + Encounter Details +--------+ + + + + | Date | Type | Department | Care Team | Description | +--------+ + + + + | 04/06/ | Telephone | [facility] | Nick Martinez, | Results, Imaging | | 2017 | | PH[address]SIATRY [address] | PA-C [address] | (MRI/Cancelled | | | | [address] | [address] [place] | Injection) | | | | [place], [place] | [facility] [place] [address] | | | | | [address] | [phone] | | | | | [phone] | | | +--------+ + + + [...] Miscellaneous Notes Telephone Encounter - Cheyenne Flores, Charge Machine Operator - 04/06/2018 2:53 PM PDTPer Core y Juan GREGORY: Patient's MRI revealed a [...] for the call.Electronically signed by Cheyenne Flores Charge Machine Operator at 04/2018 3:03 PM PDTdocumented in this [...] | | | | | [place] [address] | | | | | | [phone] | | | | | | | | +--------+---------+ + + + documented as of this encounter Visit Diagnoses Not on filedocumented in this encounter"
--- OUTSIDE RECORDS SUMMARY | ~2020-08-10 | XMS | Encounter Summary ---
Demographics + + + | Address | [address] | | | [place] [address] | + + + | Home Phone [...] Team Providers + +------+ + | Care Coding Quality Analyst Name | Role | Phone | + +------+ + | Romy De La Paz MD | PCP | | + +------+ + Reason for Visit + + + | Reason | Comments | + + + | Test Results | MRI for Thoracic and Lumbar spine | + + + Evaluate & Treat [...] | | | | RIGHT HIP | DO Alfredo | DO Alfredo | | | | | | [address] | [address] | | | | | | [address] | [address] [place], | | | | | | [place], [place] | [place] [address] | | | | | | [address] | Phone: | | | | | | Phone: | [phone] | | | | | | [phone] | Fax: | | | | | | Fax: | [phone] | | | | | | [phone] | | + +--------+ + + + + Encounter Details +--------+ + + + + | Date | Type | Department | Care Team | Description | +--------+ + + + + | 08/08/ | Virtual | [facility] | Alfredo Casillas DO | Spinal stenosis of | | 2020 | Office | [facility] | [address] [facility] | lumbosacral region | | | Visit | [address] | [place] [address] | (Primary Dx); | | | | [address] [place], | [phone] | Degenerative lumbar | | | | [place] [address] | | spinal stenosis; | | | | [phone] | | Scoliosis of lumbar | | | | | | spine, unspecified | | | | | | scoliosis type | +--------+ + + + + Social [...] encounter Progress Notes Alfredo Casillas DO - 08/08/2020 9:50 AM PDT [facility]: Interventional Pain Management 08/08/2020 Kori Caputo [place] 1945 Chief Complaint Patient presents with Test Results MRI for Thoracic and Lumbar spine HISTORY OF PRESENT ILLNESS Back Pain This is a chronic problem. The current episode started more than 1 year ago. The problem oc curs constantly. The problem is unchanged. The pain is present in the lumbar spine. The qual ity of the pain is described as aching and stabbing. The pain radiates to the right thigh, r ight knee, left thigh and left knee. The pain is at a severity of 5/10. The pain is moderate . The symptoms are aggravated by standing and twisting. Pertinent negatives include no abdom inal pain, chest pain, fever, headaches, numbness or weakness. The treatment provided mild roshni dueñas. REVIEW OF SYSTEMS Review of Systems Constitutional: [...] reflux disease Acute renal failure ([facility]) April 2013 Adverse effect of anesthesia hx hallucinations after anesthesia x 3 yrs ago. Anesthesia hallucinated after bladder repair Arthralgia Arthritis Asthma Asthma Back pain Cancer ([facility]) 2004 breast Cataract Cerebrovascular accident (CVA) ([facility]) no per pt Chronic back pain Chronic back pain Chronic constipation Concussion 07/2015 Preceeded by seizure Constipation COPD (chronic obstructive pulmonary disease) ([facility]) Degenerative disc disease Depression Depression Diabetes mellitus ([facility]) Diabetes mellitus, type 2 ([facility]) diet controlled Diabetes type 2, controlled ([facility]) diet controlled Diarrhea Disorder of thyroid Diverticulosis [...] of lumbar spine 04/17/2014 Seizure ([facility]) one due to meds, two due to [...] Procedure: KYPHOPLASTY; Surgeon: Alfredo Casillas DO; Location: [facility]; Service: Pa in Management; [...] for Pain for up to 30 days. 07/21/20 08/20/20 Yes Denys Sibley, DO levothyroxine (SYNTHROID) 100 mcg tablet Take 100 mcg by mouth every morning (before breakf ast). Yes Historical Provider, lidocaine-prilocaine (EMLA) cream Apply to affected area 2 or 3 times a day 04/15/20 04/15/21 Yes Denys Gloveraiso, DO Loratadine 10 MG CAPS Take 10 mg by mouth Daily as needed. Yes Historical Provider, methocarbamol (ROBAXIN) 500 mg tablet Take 500 mg by mouth 4 (four) times daily. 04/15/20 Y es Dneys Gloveraiso, DO metoprolol succinate (TOPROL-XL) 25 mg 24 hr tablet Take 1 tablet by mouth Daily. Patient taking differently: Take 25 mg by mouth nightly . 02/28/20 Yes Zuleyka Castillo DO naloxone (NARCAN) 4 mg/nasal spray 1 spray by Nasal route as needed for Decreased Responsiv eness (May repeat with second device into other nostril after 2 minutes). 06/18/19 Yes Denys Sibley, DO pramipexole (MIRAPEX) 0.5 MG tablet 0.5 mg . 04/14/20 Yes Historical Provider, rOPINIRole (REQUIP) 4 mg [...] level: Not on file Occupational History Occupation: [employer] Social Needs Financial resource strain: Not on [...] file Gets together: Not on file Attends restorationism service: Not on file Active member of [...] 51.8 kg (114 lb 3.2 oz) Comment: verbal | LMP (LMP Unknown) | BM I 21.58 kg/m Physical Exam Constitutional: Appearance: She is [...] 1. Spinal stenosis of lumbosacral region 2. Degenerative lumbar spinal stenosis 3. Scoliosis of lumbar spine, unspecified scoliosis type ASSESSMENT & PLAN Ms. Rubio is a 75-year-old female here to go over her MRI over the virtual visit . She does have severe stenosis at L4-5 that seems to be causing the neurogenic claudicatio n that she is having. We did discuss doing a bilateral L4 transforaminal epidural steroid i njection to see if we can get her relief from her lower back pain and neurogenic claudicatio n. If not, we did discuss referring her to a spine surgeon to see if she would be a surgic al candidate. At this point, we did go over the risks and benefits of the procedure as well as the description of the procedure itself. She is on warfarin that is new, so we will nee d to get clearance letter for her to stop before we can schedule her for the injection. She does agree with the plan and we do look forward to continue participating in her care. Service was provided [id number] with the patient via interactive videoconferencing (256-b it AES encrypted). Coding will be based on Medical Decision Making. The patient was presented with information regarding the risks and benefits of telemedicine , given the opportunity to ask questions, and consented to participate in a video visit tocan y. The patient confirms they are currently physically located at the permanent address on file . I, Alfredo Casillas DO, confirmed this is a state in which I am licensed. Plan, alternatives, risks and potential benefits of [...] Paz MD follow up Alfredo Casillas DO 08/08/2020 This document has been prepared with [employer] voice recognition system. The possibility of "s ound alike" synchronous motor assembler errors, and additions, or deletions may occur. [...] [address] | | | | | | [place], [place] | | | | | | [address] | | | | | | | | +--------+---------+ + + + | 09/01/ | Office | Cardiology | Monserrat Weems | | | 2019 | Visit | | [address] | | | | | | [address] | | | | | | [place] [address] | | | | | | [phone] | | | | | | | | +--------+---------+ + + + documented as of this encounter Visit Diagnoses + + | Diagnosis | + + | Spinal stenosis of lumbosacral region - Primary Spinal stenosis, lumbar region, | | without neurogenic claudication | + + | Degenerative lumbar spinal stenosis Spinal stenosis, lumbar region, without | | neurogenic claudication | + + | Scoliosis of lumbar spine, unspecified scoliosis type | + + documented in this encounter
--- OUTSIDE RECORDS SUMMARY | ~2020-08-10 | XMS | Encounter Summary ---
Demographics + + + | Address | [address] | | | [place] [address] | + + + | Home Phone [...] Providers + +------+ + | Care Insurance Claims Specialist Name | Role | Phone | + +------+ + PCP | Unavailable | + +------+ + Encounter Details +--------+ + + + + | Date | Type | Department | Care Team | Description | +--------+ + + + + | 06/26/ | Respiratory | | Other, Faculty | | | 2006 | Therapy | | [phone] | | +--------+ + + + + [...] | | | | Y | Tigist Reid, HOSE STRIPPER | | | | + + + [...] + + + + + | [facility] | [address] | [place], [place] | | | DIAGNOSTICS - | [address] | [address] | | | PULMONARY FUNCTION | | | | + + + + + documented in this encounter Visit Diagnoses Not on filedocumented in this encounter"
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
--- OUTSIDE RECORDS SUMMARY | ~2020-08-10 | XMS | Encounter Summary ---
Demographics + + + | Address | [address] | | | [place] [address] | + + + | Home Phone [...] Providers + +------+ + | Care Work From Home Name | Role | Phone | + [...] + | 04/06/ | Telephone | [facility] [place] | Shay Dietz | Injections | | 2018 | | PHYSIATRY [address] | [address] | | | | [address] | [place] | | | | | [place] | [address] | | | | | [address] | | | | | | [phone] | | | +--------+ + + + [...] [place] | | | | | | [address] | | | | | | | | +--------+---------+ + + + | 09/01/ | Office | Cardiology | Monserrat Weems | | 2019 | Visit | | [address] | | | | | | [address] | | | | | | [place] [address] | | | | | | [phone] | | | | | | | | +--------+---------+ + + + documented as of this encounter Visit Diagnoses Not on filedocumented in this encounter"
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
--- OUTSIDE RECORDS SUMMARY | ~2020-08-10 | XMS | Encounter Summary ---
Demographics + + + | Address | [address] | | | [place] [address] | + + + | Home Phone [...] Team Providers + +------+ + | Care Wool Shearing Supervisor Name | Role | Phone | [...] + + | 11/29/ | Office | [facility] | Sj Valdes MD | Scoliosis of lumbar | | 2014 | Visit | NEUROSURGERY [address] | [address] | spine (Primary Dx); | | | | [address] | [place] [address] | Foraminal stenosis | | | | [place] | [phone] | of lumbar region - | | | | [address] | | left L5-S1; DDD | | | | [phone] | | (degenerative disc | | | [...] from t he original. Sj Valdes M.D. 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 MOTOR EXAM: (5 IS NORMAL) * Indicates pain limited MUSCLE/ MOVEMENT: RIGHT LEFT Deltoids 5 4+ Biceps 5 5 Triceps 5 5 Wrist Flexion 5 5 Wrist Extension 5 5 Median Intrinsics 5 4 Ulnar Intrinsics 5 4 Visual Display Associate Strength 5 4 Hip Flexion 5 4 [...] [address] | | | | | | [place], [place] | | | | | | [address] | | | | | | | | +--------+---------+ + + + | 09/01/ | Office | Cardiology | Monserrat Weems | | 2019 | Visit | | [address] | | | | | | [address] | | | | | | [place] [address] | | | | | | [phone] | | | | | | | [...]
--- OUTSIDE RECORDS SUMMARY | ~2020-08-10 | XMS | Encounter Summary ---
Demographics + + + | Address | [address] | | | [place] [address] | + + + | Home Phone [...] Providers + +------+ + | Care Rn Womens Health Name | Role | Phone | [...] + + | 04/10/ | Telephone | [facility] | Nick Martinez, | Medication Follow-up | | 2018 | | PHYSIATRY [address] | PA-C [address] | | | | | [address] | [address] [facility] | | | | | [place], [place] | [place] [address] | | | | | [address] | [phone] | | | | | [phone] | | | +--------+ + + + [...] this encounter Miscellaneous Notes Addendum Note - Cheyenne Parrish Medical Assistant - 04/13/2018 2:07 PM PDT Addended by: CHEYENNE PARRISH on: 04/13/2018 14:07 Modules accepted: Orders el ephone Encounter - Cheyenne Parrish Carbon Cutter - 04/13/2018 2:03 PM PDTCalled patie nt to relay Nick's message concerning PT, a brace, and a follow up back XR. Patient express ed understanding and was grateful for my call. elephone Encounter - Nick Martinez PA-C - 018 9:14 AM PDTMaddie, Please call patient regarding physical therapy order. I have ordered PT for her at [facility] to fit her for back brace and help her with her back pain and radicular symptoms. After therapy is complete I will put in order for her to have lumbar xray to view the state of he r fracture and healing progress. Thanks, Nick Martinez PA-C ddendum Note - Cheyenne Parrish Carbon Cutter - 04/12/2018 8:42 AM PDT Addended by: CHEYENNE PARRISH on: 08:42 Modules accepted: Orders el ephone Encounter - Cheyenne Parrish Carbon Cutter - 04/12/2018 8:32 AM PDTPatient call ed [...] prescribed h er fentanyl patches and more [place] [facility]. The patient was advised that an order would be placed fo r PT, but that is the extent of treatment for her pain that our office is willing to prescri be. The patient reported her primary care physician was "hoping to refer her back" to [facility]. I again stated we have no other treatments for her pain other than PT, because our off ice doesn't not prescribe opioids, and she is unable to have steroid injections. The patient expressed understanding and was thankful for my time. elephone Encounter - Cheyenne Parrish Med ical Manager Talent - 04/10/2018 10:17 AM PDTCalled patient to [...] [place] | | | | | | [address] | | | | | | | | +--------+---------+ + + + | 09/01/ | Office | Cardiology | Monserrat Weems | | | 2019 | Visit | | [address] | | | | | | [address] | | | | | | [place] [address] | | | | | | [phone] | | | | | | | | +--------+---------+ + + + documented as of this encounter Visit Diagnoses Not on filedocumented in this encounter
--- OUTSIDE RECORDS SUMMARY | ~2020-08-10 | XMS | Encounter Summary ---
Demographics + + + | Address | [address] | | | [place] [address] | + + + | Home Phone [...] Providers + +------+ + | Care Aircraft Engine Installer Name | Role | Phone | [...] Chronic low | [address] | [place] [address] | | | | | back pain | [place] | Phone: | | | | | Facet | [address] | [phone] | | | | | arthritis of | Phone: | Fax: | | | | | lumbar | [phone] | [phone] | | | | | region | Fax: | | | | | | Scoliosis of | [phone] | | | | | | lumbar | | | | | | | spine Acute | | | | | | | renal | | | | | | | failure | | | | | | | (HCC) | | | | | | | Procedures | | | | | | | [place] [facility] | | | | | | [...] (Primary | | | | [address] | [place] [address] | Dx); Chronic low | | | | [address] | [phone] | back pain; Facet | | | | [phone] | | arthritis of lumbar | | [...] [place] | | | | | | [address] | | | | | | | | +--------+---------+ + + + | 09/01/ | Office | Cardiology | Monserrat Weems | | | 2019 | Visit | | [address] | | | | | | [address] | | | | | | [place] [address] | | | | | | [phone] | | | | | | | | +--------+---------+ + + + + + +--------+ + + | Name | Type | Priori | Associated Diagnoses | Order Schedule | | | | ty | | | + + +--------+ + + | * [facility] [place] | Outpatient | Routin | Foraminal [...]
--- OUTSIDE RECORDS SUMMARY | ~2020-08-10 | XMS | Encounter Summary ---
Demographics + + + | Address | [address] | | | [place] [address] | + + + | Home Phone [...] Providers + +------+ + | Care Guest Service Representative Name | Role | Phone [...] | | [address] | [place] [address] | (Primary Dx); DISC | | | | [place], [place] | [phone] | DISEASE, LUMBAR; | | | | [address] | | Back pain, | | | | [phone] | | unspecified back | | | [...] [place] | | | | | | [address] | | | | | | | | +--------+---------+ + + + | 09/01/ | Office | Cardiology | Monserrat Weems | | | 2019 | Visit | | [address] | | | | | | [address] | | | | | | [place] [address] | | | | | | [phone] | | | | | | | [...]
--- OUTSIDE RECORDS SUMMARY | ~2020-08-10 | XMS | Encounter Summary ---
Demographics + + + | Address | [address] | | | [place] [address] | + + + | Home Phone [...] Team Providers + +------+ + | Care Shaker Tender Name | Role | Phone | [...] as of this encounter Discharge Summaries Interface, Spoke Maker In - 08/03/2006 2:03 AM PDT [id number] ROSANA Suarez [id number] Admission Date: 06/26/2006 Discharge Date: 06/30/2006 Staff [...] up with her primary care doctor in [place] to get lab followup within the next [...] psychiatrist, Dr. Pham; his phone number is [phone]. She is to make a followup appointment with him within the next week. The patient is also to follow up with Dr. Kel Young, he is located as well in [place], [place], and is associated with [facility]. She is to follow up with him for repeat electrolytes including potassium, magnesium, and phosphorus within the next several days. Monroe Disla M.D. Sherita Madrid M.D., M.P.H. / [id number] / [id number] / [id number] / [phone] cc: * Dr. Pham [facility], [place] FAX: [phone] Kel Young M.D. Electronically signed by Sherita Madrid 08-02-2006 11:01:13 AM documented i n this encounter Plan of Treatment Not on filedocumented as of this encounter Visit Diagnoses Not on filedocumented in this encounter"
--- OUTSIDE RECORDS SUMMARY | ~2020-08-10 | XMS | Encounter Summary ---
Demographics + + + | Address | [address] | | | [place] [address] | + + + | Home Phone [...] Providers + +------+ + | Care Product Steward Name | Role | Phone | [...] Chronic low | [place], | [address] | | | | | back pain | Shay Mukherjee MD | [place], | | | | | Lumbar | [address] | [place] | | | | | radiculopath | [place] | [address] | | | | | y | [place], [place] | Phone: | | | | | Procedures | [address] | [phone] | | | | | MRI Lumbar | Phone: | Fax: | | | | | Spine wo | [phone] | [phone] | | | | | Contrast | Fax: | | | | | | MRI | [phone] | | +--------+--------+ + + + + [...] low | J Luis, | [address] | | | | | back pain | Shay Mukherjee MD | [place], | | | | | Lumbar | [address] | [place] | | | | | radiculopath | [place] | [address] | | | | | y | [place] | Phone: | | | | | Procedures | [address] | [phone] | | | | | MRI Lumbar | Phone: | Fax: | | | | | Spine wo | [phone] | [phone] | | | | | Contrast | Fax: | | | | | | MRI | [phone] | | +--------+--------+ + + + + Encounter Details +--------+ + + + + | Date | Type | Department | Care Team | Description | +--------+ + + + + | 04/12/ | Hospital | [facility] | Shay Dietz | Chronic low back | | 2013 | Encounter | MED CTR MRI [address] | MD [place] [address] | pain; Lumbar | | | | [address] [place], | [address] [place] | radiculopathy | | | | [place] [address] | [address] | | | | | [phone] | | | +--------+ + + + [...] encounter Miscellaneous Notes Miscellaneous - [facility] - 04/26/2014 12:00 AM PDT documented in [...] [place] | | | | | | [address] | | | | | | | | +--------+---------+ + + + | 09/01/ | Office | Cardiology | Monserrat Weems | | | 2019 | Visit | | [address] | | | | | | [address] | | | | | | [place] [address] | | | | | | [phone] | | | | | | | [...] + | MISCELLANEOUS LAB | | | [phone] | + +---------+ + + | MISCELANIOUS LAB | | | [phone] | + +---------+ + + documented in this encounter Visit Diagnoses + + | Diagnosis | + + | Chronic low back pain Lumbago | + + | Lumbar radiculopathy Thoracic or lumbosacral neuritis or radiculitis, unspecified | + + documented in this encounter"
--- OUTSIDE RECORDS SUMMARY | ~2020-08-10 | XMS | Encounter Summary ---
Demographics + + + | Address | [address] | | | [place] [address] | + + + | Home Phone [...] Providers + +------+ + | Care Steward/Stewardess Lounge Name | Role | Phone | + [...] + + | 02/14/ | Office | [facility] | Denys Sibley, | S/P insertion of | | 2019 | Visit | [facility] | DO [address] | spinal cord | | | | [address] | [place], [place] | stimulator (Primary | | | | [address] | [address] | Dx); Spinal stenosis | | | | [place], [place] | | of lumbosacral | | | | [address] | | region; Lumbar | | | | [phone] | | region somatic | | | [...] including but not limited to physical therapy, managed care provider, acupuncture, massage therapy, and nutritional [...] Type Author Status Filed Medication Agreement Rupa M Popeye, Furniture Finisher Helper Active 11/14/2019 1:49 PM Pain Contract- Dr. Sibley 11/14/2019 PEG Pain screening tool (Pain, enjoyment, general activity) Total score: (Printable questionnaires in Omani ) Interpretation of Total Score: PEG scores are used to track changes over time. It should de crease after therapy has begun. Last 4 PEG Scores: No flowsheet data found. Opioid Risk Tool (ORT): Total Score Temp: 36.9 C (98.5 F) Pulse: 80 Resp: 20 BP: 104/56 SpO2: 100 % (From Chronic Pain tab; printable questionnaires in Omani) Interpretation of Total Score: 0 to 3 [...] Procedure: KYPHOPLASTY; Surgeon: Alfredo Casillas DO; Location: [facility] MAIN OR; Service: Pa [...] symptoms. Patient is not traveled to an [facility] in the last 8 to 10 weeks. Current medication include Marlow 10/325 1 p.o. every 4 hours as [...] on her curre nt medication program of Marlow 10/325 1 p.o. every 4 hours as [...] = high risk) Daily Opioid Dose = Marlow 10/325 1 p.o. every 4 hours as [...] imited to physical therapy, massage therapy, acupuncture, managed care provider, along with niki mmended psychological [...] dysfunction are noted in men and women. [facility] men will suffer erectile dysfunction with [...] and coordination of care with other health manager progressive care and monitoring labs results, other test results and imagin g including [facility] and/or [facility] prescription monitoring systems. This document has been created using [employer] Voice Recognition software and [employer]. The entry has been reviewed for content and accuracy, but there may still exist "sound alike" banana room cutter word errors and/or unintended additions and deletions. [...] [place] | | | | | | [id number] | | | | | | | | +--------+---------+ + + + | 09/01/ | Office | Cardiology | Monserrat Weems | | 2019 | Visit | | Katty, LAB SCIENTIST [address] | | | | | | [address] | | | | | | [place] [address] | | | | | | [phone] | | | | | | | [...]
--- OUTSIDE RECORDS SUMMARY | ~2020-08-10 | XMS | Encounter Summary ---
Demographics + + + | Address | [address] | | | [place] [address] | + + + | Home Phone [...] Providers + +------+ + | Care Drum Builder Name | Role | Phone | + +------+ + | No, Physician | PCP | Unavailable | + +------+ + Encounter Details +--------+ + + + + | Date | Type | Department | Care Team | Description | +--------+ + + + + | 01/03/ | Hospital | [facility] | Shay Dietz | | | 2013 | Encounter | MED CTR XRAY [address] | T, [address] | | | | | [place] | [address] [place], [place] | | | | | [place] [address] | [address] | | | | | [phone] | | | +--------+ + + + [...] [place] | | | | | | [address] | | | | | | | | +--------+---------+ + + + | 09/01/ | Office | Cardiology | Monserrat Weems | | | 2019 | Visit | | [address] | | | | | | [address] | | | | | | [place] [address] | | | | | | [phone] | | | | | | | | +--------+---------+ + + + documented as of this encounter Visit Diagnoses Not on filedocumented in this encounter"
--- OUTSIDE RECORDS SUMMARY | ~2020-08-10 | XMS | Encounter Summary ---
Demographics + + + | Address | [address] | | | [place] [address] | + + + | Home Phone [...] Providers + +------+ + | Care Clinic Director Name | Role | Phone | + +------+ + | Romy De La Paz MD | PCP | | + +------+ + Encounter Details +--------+ + + + + | Date | Type | Department | Care Team | Description | +--------+ + + + + | 10/18/ | Telephone | [facility] | Shay Dietz | | | 2012 | | MEDICINE [address] | [place], [address] | | | | | [address] [place], | [place], [place] | | | | | [place] [address] | [address] | | | | | [phone] | | | +--------+ + + + [...] [place] | | | | | | [address] | | | | | | | | +--------+---------+ + + + | 09/01/ | Office | Cardiology | Monserrat Weems | | | 2019 | Visit | | [address] | | | | | | [address] | | | | | | [place] [address] | | | | | | [phone] | | | | | | | | +--------+---------+ + + + documented as of this encounter Visit Diagnoses Not on filedocumented in this encounter"
--- OUTSIDE RECORDS SUMMARY | ~2020-08-10 | XMS | Encounter Summary ---
Demographics + + + | Address | [address] | | | [place] [address] | + + + | Home Phone [...] Providers + +------+ + | Care Senior Risk Analyst Name | Role | Phone | + +------+ + PCP | Unavailable | + +------+ + Encounter Details +--------+ + + + + | Date | Type | Department | Care Team | Description | +--------+ + + + + | 02/22/ | Hospital | [facility] | Ken Craft | | | 2006 - | Encounter | HEART MED CTR BEH | MD Masha [address] | | | | | HLTH ADULT [address] [place], [place] | | | 02/28/ | | [address] [place] | [address] | | | 2005 | | [address] | | | | | | [phone] | Samantha Estes | | | | | | MD Jewel [address] | | | | | [address] | | | | | | [place] [address] | | | | | | | [...] [place] | | | | | | [address] | | | | | | | | +--------+---------+ + + + | 09/01/ | Office | Cardiology | Monserrat Weems | | | 2019 | Visit | | [address] | | | | | | [address] | | | | | | [facility] [place] [address] | | | | | | [phone] | | | | | | | | +--------+---------+ + + + documented as of this encounter Visit Diagnoses Not on filedocumented in this encounter"
[~2020-08-10 14:32] MED LIST changes: +ALENDRONATE SOD70 MG PO
--- OUTSIDE RECORDS SUMMARY | 2020-08-10 14:34 | XMS ---
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 Care History Medical/Surgical 09/25/2019 [facility] Patient aware of PCP appt. on 10/17/2019 and of the walk in clinic, but stated she used ED because she has respiratory issues with fever and was too weak to walk. 08/08/2019 [facility] - PATIENT HAS AN APT WITH PCP DR ONEILL ON 10/17/19 02/06/2019 [facility] - Patient is currently established with [facility]. If patient is seen in the ED during business hours. Please contact CHWs at [facility]. Care Recommendation: This patient has had 5 [...] providing care. E.D. VISIT COUNT (12 MO.) 6 LIZZETTE Enrique TOTAL 6 NOTE: Visits indicate total known visits. ED/UCC VISIT TRACKING (12 MO.) 08/10/2020 14:32 [facility] [place] TYPE: Emergency COMPLAINT: - FALL 05/30/2020 16:14 [facility] TYPE: Emergency COMPLAINT: - FISH HOOK IN TOE DIAGNOSES: - Superficial foreign body, right great toe, initial encounter 03/05/2020 16:33 [facility] [place] TYPE: Emergency COMPLAINT: - SYNCOPAL EPISODE DIAGNOSES: - Allergy status to other drugs, medicaments and biological sub - Syncope and collapse - care home (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 of inhaled steroids - Other supervisor intermediates (current) 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 - Chronic obstructive pulmonary disease, unspecified - Major depressive disorder, single episode, unspecified - Type 2 diabetes mellitus without complications - supervisor intermediates (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 of 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 10/10/2019 18:43 [facility] [place] TYPE: Emergency COMPLAINT: - ELEVATED HEART RATE DIAGNOSES: - Major depressive disorder, single episode, unspecified - Chest pain, unspecified - Chronic obstructive pulmonary disease, unspecified - Other supervisor intermediates (current) 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 - Type 2 diabetes mellitus without complications - Allergy status to other drugs, medicaments and biological sub 09/28/2019 11:50 [facility] [place] TYPE: Emergency COMPLAINT: - CHEST PAIN 09/24/2019 15:43 [facility] [place] TYPE: Emergency COMPLAINT: - NAUSEA, VOMITING, DIARRHEA DIAGNOSES: - Other supervisor intermediates (current) 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 - Bipolar disorder, unspecified - Nausea with vomiting, unspecified - Chronic obstructive pulmonary disease, unspecified - Urinary tract infection, site not specified - supervisor intermediates (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 of systemic steroids - care home (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 of opiate analgesic - Diarrhea, unspecified - Type 2 diabetes mellitus without complications - Allergy status to other drugs, medicaments and biological sub INPATIENT VISIT TRACKING (12 MO.) 09/28/2019 14:01 [facility] TYPE: Medical Surgical COMPLAINT: - PNEUMONIA DIAGNOSES: - Hypo-osmolality and hyponatremia - Other specified anxiety disorders - Hypothyroidism, unspecified - Chronic pain syndrome - Hypovolemia - Low back pain - Other fpc (current) 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 - Paroxysmal atrial fibrillation - Other psychoactive substance dependence, uncomplicated - Other psychoactive substance dependence, uncomplicated - Low back pain - Allergy status to other drugs, medicaments and biological sub - Other supervisor intermediates (current) 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 - Pneumonia due to [...] obstructive pulmonary disease with acute lower respir [email or web address]
[2020-08-10] MEDS ORDERED: CALCIUM500 MG PO (14:42)
[2020-08-10] MEDS ORDERED: VITAMIN D3 COM1 EACH PO (14:43)
== END 2020-08-10 16:48 | disposition home or self-care (01) ==
LOC: ED 14:32
DX: R55 Syncope and collapse (principal); G89.29 Other chronic pain; E11.9 Type 2 diabetes mellitus without complications; J44.9 Chronic obstructive pulmonary disease, unspecified; F31.9 Bipolar disorder, unspecified; Z88.8 Allergy status to other drugs, medicaments and biological substances; Z79.899 Other long term (current) 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; Z79.01 Long term (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 of 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
CPT/HCPCS: 70450; 80053; 81001; 84484; 85025; 85610; 99284-25; J7030

== ENCOUNTER 2020-09-14 07:01 | Emergency (ER) | payer MEDICARE, OTHER ==
[~2020-09-14] VITALS: Ht 154.9 cm; Wt 51.7 kg
[~2020-09-14 07:01] MED LIST changes: +VITAMIN D3 COM1 EACH PO
--- OUTSIDE RECORDS SUMMARY | 2020-09-14 07:04 | XMS ---
PreManage Notification: RONALD FLORIAN Security Manager Commission Events No recent Security Events currently on file CRITERIA MET - Group Notification - [facility] - Has Care Guidelines CARE PROVIDERS EVELIO RIVERS Physician Senior Safety Support Manager 05/23/2018-Current PHONE: Unknown MAI MADISON Internal Medicine: Pulmonary Disease 02/06/2019-Current PHONE: Unknown Mateus has no Care Guidelines for this patient. Care History Medical/Surgical 09/25/2019 [facility] Patient aware of PCP appt. on 10/17/2019 and of the walk in clinic, but stated she used ED because she has respiratory issues with fever and was too weak to walk. 08/08/2019 [facility] - PATIENT HAS AN APT WITH PCP DR ONEILL ON 10/17/19 02/06/2019 [facility] - Patient is currently established with [facility]. If patient is seen in the ED during business hours. Please contact CHWs at [facility]. Care Recommendation: This patient has had [...] known visits. 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 05/30/2020 16:14 [facility] [place] TYPE: Emergency COMPLAINT: - FISH HOOK IN TOE DIAGNOSES: - Superficial foreign body, right great toe, initial encounter 03/05/2020 16:33 [facility] [place] TYPE: Emergency COMPLAINT: - SYNCOPAL EPISODE DIAGNOSES: - Allergy status to other drugs, medicaments and biological substances - Syncope and collapse - regional intermodal truck driver (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 of inhaled steroids - Other fdc (current) 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 - Chronic obstructive pulmonary disease, unspecified - Major depressive disorder, single episode, unspecified - Type 2 diabetes mellitus without complications - regional 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 10/10/2019 18:43 [facility]TE [facility] [place] TYPE: Emergency COMPLAINT: - ELEVATED HEART RATE DIAGNOSES: - Major depressive disorder, single episode, unspecified - Chest pain, unspecified - Chronic obstructive pulmonary disease, unspecified - Other terminal operator (current) 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 - Type 2 diabetes mellitus without complications - Allergy status to other drugs, medicaments and biological substances 09/28/2019 11:50 [facility]TE [facility] [place] TYPE: Emergency COMPLAINT: - CHEST PAIN 09/24/2019 15:43 [facility] [place] TYPE: Emergency COMPLAINT: - NAUSEA, VOMITING, DIARRHEA DIAGNOSES: - Other fdc (current) 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 - Bipolar disorder, unspecified - Nausea with vomiting, unspecified - Chronic obstructive pulmonary disease, unspecified - Urinary tract infection, site not specified - assisted (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 of systemic steroids - assisted (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 of opiate analgesic - Diarrhea, unspecified - Type 2 diabetes mellitus without complications - Allergy status to other drugs, medicaments and biological substances INPATIENT VISIT TRACKING (12 MO.) 09/28/2019 14:01 [facility] [place] TYPE: Medical Surgical COMPLAINT: - PNEUMONIA DIAGNOSES: - Hypo-osmolality and hyponatremia - Other specified anxiety disorders - Hypothyroidism, unspecified - Chronic pain syndrome - Hypovolemia - Low back pain - Other terminal operator (current) 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 - Paroxysmal atrial fibrillation - Other psychoactive substance dependence, uncomplicated - Other psychoactive substance dependence, uncomplicated - Low back pain - Allergy status to other drugs, medicaments and biological substances - Other terminal operator (current) 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 - Pneumonia due to Streptococcus pneumoniae - Allergy status to other drugs, medicaments and biological substances - Hypothyroidism, unspecified - Chronic obstructive pulmonary disease with (acute) lower respiratory infection - Paroxysmal atrial fibrillation - Hypovolemia - Other specified anxiety disorders - Chronic pain syndrome - Hypo-osmolality and hyponatremia - Restless legs syndrome - Restless legs syndrome - Pneumonia, unspecified organism - Pneumonia due to Streptococcus pneumoniae - Chronic obstructive pulmonary disease with (acute) lower respiratory infection [email or web address]
== END 2020-09-14 14:04 | disposition home or self-care (01) ==
LOC: ED 07:01
DX: F31.9 Bipolar disorder, unspecified (principal); R45.851 Suicidal ideations; R94.6 Abnormal results of thyroid function studies; E11.9 Type 2 diabetes mellitus without complications; J44.9 Chronic obstructive pulmonary disease, unspecified; Z88.8 Allergy status to other drugs, medicaments and biological substances; Z79.899 Other long term (current) 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; Z79.01 Long term (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 of 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
CPT/HCPCS: 80053; 80176; 81001; 84439; 84443; 85025; 99285; G0480

== ENCOUNTER 2021-02-23 15:44 | Emergency (ER) | payer MEDICARE, OTHER ==
[~2021-02-23] VITALS: Ht 154.9 cm; Wt 51.7 kg
--- OUTSIDE RECORDS SUMMARY | 2021-02-23 15:46 | XMS ---
PreManage Notification: RONALD FLORIAN Security Structural Rigger Events No recent Security Events currently on file CRITERIA MET - Group Notification - [facility] - Has Care Guidelines - PDMP CARE PROVIDERS EVELIO RIVERS Physician Solution Advisor 05/23/2018-Current PHONE: Unknown MAI MADISON Internal Medicine: Pulmonary Disease 02/06/2019-Current PHONE: Unknown Mateus has no Care Guidelines for this patient. Care History Medical/Surgical 09/25/2019 [facility] Patient aware of PCP appt. on 10/17/2019 and of the walk in clinic, but stated she used ED because she has respiratory issues with fever and was too weak to walk. 08/08/2019 [facility] - PATIENT HAS AN APT WITH PCP DR ONEILL ON 10/17/19 02/06/2019 [facility] - Patient is currently established with [facility]. If patient is seen in the ED during business hours. Please contact CHWs at [facility]. Care Recommendation: This patient has had 5 [...] providing care. E.D. VISIT COUNT (12 MO.) 5 LIZZETTE Enrique TOTAL 5 NOTE: Visits indicate total known visits. ED/UCC VISIT TRACKING (12 MO.) 02/23/2021 15:45 [facility] [place] TYPE: Emergency COMPLAINT: - LOC 09/14/2020 07:[address] 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 [facility] [place] TYPE: Emergency COMPLAINT: - SYNCOPE DIAGNOSES: - Allergy status to other drugs, medicaments and biological substances - Other chronic pain - Bipolar disorder, unspecified - Type 2 diabetes mellitus without complications - Allergy status to other drugs, medicaments and biological substances - Other local intermodal truck driver (current) 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 - Chronic obstructive pulmonary disease, unspecified - Syncope and collapse - termite inspector (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 of 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 05/30/2020 16:14 [facility] Achary[facility] [place] TYPE: Emergency COMPLAINT: - FISH HOOK IN TOE DIAGNOSES: - Superficial foreign body, right great toe, initial encounter 03/05/2020 16:33 [facility] [place] TYPE: Emergency COMPLAINT: - SYNCOPAL EPISODE DIAGNOSES: - Allergy status to other drugs, medicaments and biological substances - Syncope and collapse - prison (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 of inhaled steroids - Other local intermodal truck driver (current) 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 - Chronic obstructive pulmonary disease, unspecified - Major depressive disorder, single episode, unspecified - Type 2 diabetes mellitus without complications - prison (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 of 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 INPATIENT VISIT TRACKING (12 MO.) No inpatient visits to display in this time frame [email or web address]
--- NOTE | 2021-02-25 15:18 | EKG ---
[facility] [address] [facility] [place], [place] [address] Signed Normal sinus rhythm Normal ECG When compared with ECG of 05-MAR-2020 17:12, No significant change was found Confirmed by TRAE DE LA ROSA MD ([id number]) on 02/25/2021 3:18:03 PM Electronically Signed By: TRAE DE LA ROSA MD 02/25/21 1518 PATIENT NAME: RONALD FLORIAN Electrocardiogram DATE OF : 49 PHYSICIAN: TRAE DE LA ROSA MD REPORT #: [id number] REPORT IS CONFIDENTIAL AND NOT TO BE RELEASED WITHOUT AUTHORIZATION
== END 2021-02-23 18:10 | disposition home or self-care (01) ==
LOC: ED 15:44
DX: R55 Syncope and collapse (principal); E11.9 Type 2 diabetes mellitus without complications; J44.9 Chronic obstructive pulmonary disease, unspecified; Z88.8 Allergy status to other drugs, medicaments and biological substances; Z79.899 Other long term (current) 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
CPT/HCPCS: 80053; 83735; 84484; 85025; 93005; 93010; 99284-25; J7040

== ENCOUNTER 2021-03-21 10:19 | Emergency (ER) | payer MEDICARE, OTHER ==
[~2021-03-21] VITALS: Ht 154.9 cm; Wt 53.5 kg
--- OUTSIDE RECORDS SUMMARY | 2021-03-21 10:22 | XMS ---
PreManage Notification: RONALD FLORIAN Security Meat Manager Events No recent Security Events currently on file CRITERIA MET - Group Notification - [facility] - Has Care Guidelines - PDMP - [facility] - 2 Visits in 30 Days CARE PROVIDERS EVELIO RIVERS Physician Nurse Ldr 05/23/2018-Current PHONE: Unknown BHANU ONEILL Family [facility] 02/24/2021-Current PHONE: [phone] MAI MADISON Internal Medicine: Pulmonary Disease 02/06/2019-Current PHONE: Unknown [facility] has no Care Guidelines for this patient. Care History Medical/Surgical 09/25/2019 [facility] Patient aware of PCP appt. on 10/17/2019 and of the walk in clinic, but stated she used ED because she has respiratory issues with fever and was too weak to walk. 08/08/2019 [facility] - PATIENT HAS AN APT WITH PCP DR ONEILL ON 10/17/19 02/06/2019 [facility] - Patient is currently established with [facility]. If patient is seen in the ED during business hours. Please contact CHWs at [facility]. Care Recommendation: This patient has had [...] care. E.D. VISIT COUNT (12 MO.) 5 [facility]. TOTAL 5 NOTE: Visits indicate total known visits. ED/UCC VISIT TRACKING (12 MO.) 03/21/2021 10:20 [facility] [place] TYPE: Emergency COMPLAINT: - BACK PAIN 02/23/2021 15:45 [facility] [place] TYPE: Emergency COMPLAINT: - LOC DIAGNOSES: - Allergy status to other drugs, medicaments and biological substances - Type 2 diabetes mellitus without complications - Syncope and collapse - Chronic obstructive pulmonary disease, unspecified - Other assisted (current) 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 09/14/2020 07:02 [facility] [place] TYPE: Emergency COMPLAINT: - WEAKNESS DIAGNOSES: - Suicidal ideations - Type 2 diabetes mellitus without complications - Allergy status to other drugs, medicaments and biological substances - shelter (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 of 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 - Chronic obstructive pulmonary disease, unspecified - Bipolar disorder, unspecified - Abnormal results of thyroid function studies - Other termination clerk (current) 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 - Allergy status to other drugs, medicaments and biological substances 08/10/2020 14:32 [facility] [place] TYPE: Emergency COMPLAINT: - SYNCOPE DIAGNOSES: - Allergy status to other drugs, medicaments and biological substances - Other chronic pain - Bipolar disorder, unspecified - Type 2 diabetes mellitus without complications - Allergy status to other drugs, medicaments and biological substances - Other assisted (current) 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 - Chronic obstructive pulmonary disease, unspecified - Syncope and collapse - termination clerk (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 of 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 05/30/2020 16:14 [facility] [place] TYPE: Emergency COMPLAINT: - FISH HOOK IN TOE DIAGNOSES: - Superficial foreign body, right great toe, initial encounter INPATIENT VISIT TRACKING (12 MO.) No inpatient visits to display in this time frame [id number]
[2021-03-21] MEDS ORDERED: KETOROLAC TROMET5 M1 OPTH (10:32)
--- NOTE | 2021-03-22 11:31 | EKG ---
[facility] [address] [place] [address] Signed Normal sinus rhythm Normal ECG When compared with ECG of 23-FEB-2021 16:48, No significant change was found Confirmed by TRAE DE LA ROSA MD ([id number]) on 03/22/2021 11:31:38 AM Electronically Signed By: TRAE DE LA ROSA MD 03/22/21 1131 PATIENT NAME: RONALD FLORIAN Electrocardiogram DATE OF : 49 PHYSICIAN: TRAE DE LA ROSA MD REPORT #: [id number] REPORT IS CONFIDENTIAL AND NOT TO BE RELEASED WITHOUT AUTHORIZATION
== END 2021-03-21 12:31 | disposition home or self-care (01) ==
LOC: ED 10:19
DX: M54.9 Dorsalgia, unspecified (principal); E11.9 Type 2 diabetes mellitus without complications; J44.9 Chronic obstructive pulmonary disease, unspecified; Z88.8 Allergy status to other drugs, medicaments and biological substances; Z79.899 Other long term (current) 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
CPT/HCPCS: 80053; 84484; 85025; 93005; 93010; 96372; 99284-25; J1885

== ENCOUNTER 2021-05-13 15:50 | Inpatient (IN) | payer MEDICARE, OTHER ==
[~2021-05-13] VITALS: Ht 154.9 cm; Wt 55.0 kg
[~2021-05-13 15:50] MED LIST changes: +KETOROLAC TROMET5 M1 OPTH
--- OUTSIDE RECORDS SUMMARY | 2021-05-13 15:52 | XMS ---
PreManage Notification: RONALD FLORIAN Security Junior Account Executive Events No recent Security Events currently on file CRITERIA MET - PDMP - Group Notification CARE PROVIDERS EVELIO RIVERS Physician Garbage Stoker 05/23/2018-Current PHONE: Unknown BHANU ONEILL Family [facility] 02/24/2021-Current PHONE: [phone] MAI MADISON Internal Medicine: Pulmonary Disease 02/06/2019-Current PHONE: Unknown Mateus has no Care Guidelines for this patient. Care History Medical/Surgical 09/25/2019 [facility] Patient aware of PCP appt. on 10/17/2019 and of the walk in clinic, but stated she used ED because she has respiratory issues with fever and was too weak to walk. 08/08/2019 [facility] - PATIENT HAS AN APT WITH PCP DR ONEILL ON 10/17/19 02/06/2019 [facility] - Patient is currently established with [facility]. If patient is seen in the ED during business hours. Please contact CHWs at [facility]. Care Recommendation: This patient has [...] care. E.D. VISIT COUNT (12 MO.) 6 [facility]. TOTAL 6 NOTE: Visits indicate total known visits. 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 - Chronic obstructive pulmonary disease, unspecified - Allergy status to other drugs, medicaments and biological substances - Type 2 diabetes mellitus without complications - Dorsalgia, unspecified 02/23/2021 15:45 [facility] [place] TYPE: Emergency COMPLAINT: - LOC DIAGNOSES: - Allergy status to other drugs, medicaments and biological substances - Type 2 diabetes mellitus without complications - Syncope and collapse - Chronic obstructive pulmonary disease, unspecified - Other penitentiary (current) 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 09/14/2020 07:02 [facility] [place] TYPE: Emergency COMPLAINT: - WEAKNESS DIAGNOSES: - Suicidal ideations - Type 2 diabetes mellitus without complications - Allergy status to other drugs, medicaments and biological substances - 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 - Chronic obstructive pulmonary disease, unspecified - Bipolar disorder, unspecified - Abnormal results of thyroid function studies - Other penitentiary (current) 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 - Allergy status to other drugs, medicaments and biological substances 08/10/2020 14:32 [facility] [place] TYPE: Emergency COMPLAINT: - SYNCOPE DIAGNOSES: - Allergy status to other drugs, medicaments and biological substances - Other chronic pain - Bipolar disorder, unspecified - Type 2 diabetes mellitus without complications - Allergy status to other drugs, medicaments and biological substances - 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
[2021-05-13] MEDS ORDERED: ROPINIROLE HCL3 MG PO (16:06)
[2021-05-13] MEDS ORDERED: PRAMIPEXOLE D0.75 MG PO (16:07)
[2021-05-13] MEDS ORDERED: LORATADINE10 MG PO (16:08)
[2021-05-13] MEDS ORDERED: CEPHALEXIN500 MG PO (16:09)
--- NOTE | 2021-05-13 19:30 | NUR ---
pt arrives to room by stretcher. pt stands and pivots to bsc then bed.
--- NOTE | 2021-05-13 20:50 | NUR ---
ASSESSMENT, VS AND I&O COMPLETED. GCS 15, A&O X4. PT DOES NOT APPEAR TO BE HAVING TROUBLE RESPONDING OR EXPRESSING VERBALLY. NIH 1. PT PASSED A BEDSIDE SWALLOW EVALUATION. LUNGS CLEAR, ABD SOFT, NONTENDER. HEART TONES REULAR. CMS INTACT. PT HAS MILD GENERALIZED WEAKNESS IN LOWER EXTREMITIES, USES CANE AT BASELINE. SCATTERED BRUISING NOTED, SKIN FRAGILE. IV WNL, CDI, FLUSHED WELL. SCHEDULED MEDS PROVIDED. PT DENIES PAIN AT THIS TIME. NO OTHER NEEDS. CALL LIGHT IN REACH. ICE WATER AND SNACK BOX PROVIDED.
--- NOTE | 2021-05-13 22:00 | NUR ---
PT CALLS FOR WARM BLANKET, PROVIDED. NO OTHER NEEDS. CALL LIGHT IN REACH.
--- NOTE | 2021-05-14 | NUR ---
PT RESTING IN BED, EYES CLOSED. RR EVEN, UNLABORED. CALL LIGHT IN REACH.
--- NOTE | 2021-05-14 02:00 | NUR ---
PT REPORTS 6/10 LOWER BACK PAIN, PRN PAIN MED. PT AMBULATING IN ROOM WITH ELIOTWRUPESH. PT UP IN CHAIR AT THIS TIME. CALL LIGHT IN REACH.
--- NOTE | 2021-05-14 02:50 | NUR ---
ASSESSMENT COMPLETED. GCS 15, A&O X4. PT HAS GENERALIZED WEAKNESS, STATES SHE HAS BEEN MORE WEAK IN THE LAST COUPLE OF WEEKS. NIH 1. LUNGS CLEAR, HEART TONES REGULAR. ABD SOFT, NONTENDER, BOWEL TONES ACTIVE. CMS INTACT. IV WNL. PAIN 4/10 IN LOWER BACK, PT DENIES NEED FOR FURTHER PAIN INTERVENTION. PT UP TO BR AND BACK TO BED, FWW. WATER PROVIDED. NO OTHER NEEDS. CALL LIGHT IN REACH.
--- NOTE | 2021-05-14 04:30 | NUR ---
PT RESTING IN BED, EYES CLOSED. RR EVEN, UNLABORED. CALL LIGHT IN REACH.
--- NOTE | 2021-05-14 05:38 | NUR ---
VS AND I&O COMPLETED. COFFEE REQUESTED, PROVIDED. NO OTHER NEEDS AT THIS TIME. CALL LIGHT IN REACH.
--- NOTE | 2021-05-14 06:39 | NUR ---
ASSISTED PT BACK TO BED. [facility] WILL BE BRINGING IN DEVICE TO DEACTIVATE STIMULATOR FOR MRI. SNACK PROVIDED. NO OTHER NEEDS. CALL LIGHT IN REACH.
--- NOTE | 2021-05-14 07:30 | NUR ---
Report recieved from LUISA Whiteside, pt resting in bed safely w/ call light in reach. Whiteboard updated.
--- NOTE | 2021-05-14 08:06 | NUR ---
Pt called for assistance to bathroom. 1PA SBA w/FWW to bathroom, pt voided and then assisted to chair. Pt sitting up in eating breakfast, fresh water and hot tea given at pt request. Call light w/ in reach no other needs at this time.
--- NOTE | 2021-05-14 09:15 | NUR ---
PREDATORY ANIMAL HUNTER IN ROOM FOR ECHO.
--- NOTE | 2021-05-14 09:50 | NUR ---
INTO PATIENT ROOM, PATIENT TEARFUL DUE TO PAIN POST ECHO. TIGIST RN AT BEDSIDE ASSESSING PATIENT. CASE MANAGEMENT ASSESSMENT COMPLETED. PATIENT STATES SHE LIVES AT HOME ALONE, BUT DOES RECV CAREGIVING HELP FROM [employer] 3 TIMES PER WEEK. PATIENT STATES SHE DOES HAVE STAIR INTO HER HOME WITH HAND RAILS IN PLACE. PATIENT STATES SHE IS STILL IMTIAZ TO DRIVE, BUT GENERALLY WALKS OR TAKES A TAXI FOR GROCERIES ETC. PATIENT STATES HERE SON NIKI DOSS IS HER BEST CONTACT, NUMBER [phone]. PATIENT PREFERS TO DISCHARGE HOME WHEN STABLE. WILL CONTINUE TO FOLLOW UP WITH PATIENT DURING HER STAY.
--- NOTE | 2021-05-14 10:00 | NUR ---
PT ASSISTED TO BATHROOM, SBA W/FWW. OT IN ROOM TO ASSESS PT WILL FINISH ASSISTING PT IN BATHROOM.
[2021-05-14] MEDS ORDERED: XARELTO20 MG PO (10:15)
--- NOTE | 2021-05-14 10:29 | EKG ---
[facility] [address] [place] [address] Signed Sinus rhythm with premature atrial complexes Otherwise normal ECG When compared with ECG of 13-MAY-2021 15:39, (Unconfirmed) premature atrial complexes are now present Confirmed by FLORES ROBERTS DO ([id number]) on 05/14/2021 10:28:58 AM Electronically Signed By: FLORES ROBERTS DO 05/14/21 1029 PATIENT NAME: ROSANA RONALD HANNAH Electrocardiogram DATE OF : 49 PHYSICIAN: FLORES ROBERTS DO REPORT #: [id number] REPORT IS CONFIDENTIAL AND NOT TO BE RELEASED WITHOUT AUTHORIZATION
[2021-05-14] MEDS ORDERED: ROPINIROLE HCL4 MG PO (11:29)
--- NOTE | 2021-05-14 11:37 | NUR ---
MED REC COMPLETE
--- NOTE | 2021-05-14 12:20 | NUR ---
PT TO MRI VIA W/C
--- NOTE | 2021-05-14 13:00 | NUR ---
PT BACK FROM MRI, RESTING IN BED SAFELY W/ CALL LIGHT IN REACH. DENIES ANY NEEDS AT THIS TIME.
--- NOTE | 2021-05-14 15:07 | NUR ---
PT SITTING UP IN BED SAFELY W/ CALL LIGHT IN REACH, FIREND AT BEDSIDE VISITING PT, AFTERNOON ASSESMENT COMPLETED. PT DENIES ANY NEEDS AT THIS TIME.
--- NOTE | 2021-05-14 16:22 | NUR ---
New oral abx given per provider order. Pt sitting up in chair visiting w/ friend, call light in reach. no needs at this time
--- NOTE | 2021-05-14 17:08 | NUR ---
PT ASSISTED TO BATHROOM, PT VOIDED, THEN ASSISTED TO BED. PT RESTING SAFELY W/ CALL LIGHT IN REACH.
--- NOTE | 2021-05-14 18:40 | NUR ---
PT UP IN CHAIR FOR MEALS, PT UNABLE TO WEAR DENTURES DUE TO ORAL PAIN, BUT ABLE TO EAT SOFT FOODS. PT CALLS APPROPRIATELY 1PA/SBA W/FWW TO BATHROOM.
--- NOTE | 2021-05-14 19:25 | NUR ---
in to assist pt with bathroom call light, pt delines this tuck pointer helper's assistance at this time, rn in to take over
--- NOTE | 2021-05-14 20:27 | NUR ---
up to br, voided, had a dark green colored soft xlarge bm, voided, back to bed 1pa/fww. c/o RUQ pain, medicated with tylenol 650mg po. abd soft, meghan, non tender during assessment. warm pad to abd too. coop with assessment
--- NOTE | 2021-05-14 20:46 | NUR ---
PT CALLED TO HAVE BLINDS CLOSED, SHE DENIES FURTHER NEEDS. CALL LIGHT IS CLOSE.
--- NOTE | 2021-05-14 20:50 | NUR ---
on room air, pleasant and coop with asesment, IVF infusing RA GILA Kolb. no c/o pain, tolerating fluids well , call light at hands reach
--- NOTE | 2021-05-15 00:44 | NUR ---
ASSIST PT OUT OF BED 1PA WITH FWW TO THE TOILET, WILL CALL WHEN READY
--- NOTE | 2021-05-15 01:00 | NUR ---
IN TO ASSIST PT BACK FROM TOILET, PT HAS INCREASED WEAKNESS WITH RIGHT LEG AND IS UNABLE TO WALK, ASSISTED PT TO THE ADJACENT BSC TO SIT PT DOWN, CALLED FOR ASSISTANCE, 2PA PIVOT PT TO WHEELCHAIR, THEN PIVOT TO BED, SET PTs TABLE AND PHONE NEARBY, CALL LIGHT IN PLACE, NO FUTHER NEEDS
--- NOTE | 2021-05-15 01:33 | NUR ---
IN TO PROVIDE PT WITH PUDDING, MILK AND GRAMCRACKERS, NO FURTHER NEEDS AT THIS TIME
--- NOTE | 2021-05-15 03:13 | NUR ---
up to br, 1pa/fww, voided, then wanted to walk. Walked in room several times, tolerated well, currently in chair, legs elevated, tolerating sips of fluids. sl patent. no c/o pain.
--- NOTE | 2021-05-15 03:43 | NUR ---
IN TO PROVIDE PT CUP OF COFFEE, CHAT WITH PT, VIEWED PTs ARTWORK, NO FURTHER NEEDS AT THIS TIME
--- NOTE | 2021-05-15 04:43 | NUR ---
UP TO BR, FROM CHAIR, VOIDED, BACK TO BED, VERY CONCERNED ABOUT BEING ABLE TO BE DC IN AM AND DOING EXERCISES STANDING UP AND LIFTING LEGS, INSTRUCTED ON FALL SAFETY. WALKED IN ROOM. BACK TO BED. TYLENOL 650MG PO GIVEN PER BACK PAIN. VERY TIRED, DROWSY, SEMI RECEPTIVE TO INFO. CALL LIGHT AND FLUIDS AT HANDS REACH
--- NOTE | 2021-05-15 05:30 | NUR ---
PT HAS BEEN AWAKE MOST OF THIS SHIFT. FIXATING ON HAVING TO DO EXERCISES IN ORDER TO GO HOME. WAS UNSTEADY EARLIER ON SHIFT WHERE SHE REQUIRED 2 PERSON AND CHAIR TO GET BACK TO BED DUE TO R SIDED RESIDUAL WEAKNESS, USES CANE/WALKER. EASILY REDIRECTABLE. TELE#[address] WAS DRINKING A RED BULL DRINK AND HER HR ELEVATED BECAME TACHY, RESOLVED. TOLERATING LIQUIDS WELL
--- NOTE | 2021-05-15 07:39 | NUR ---
Shift report recieved from RN Mariann pt resting in bed safely w/ call light in reach.
--- NOTE | 2021-05-15 09:50 | NUR ---
INTO PATIENT ROOM, PATIENT AWAKE LAYING IN BED. DISCUSSED PT AND OT RECOMMENDATIONS FOR FURTHER SKILLED THERAPIES POST DISCHARGE. ASKED PATIENT IF SHE WOULD BE INTERESTED IN SNIF PLACEMENT FOR REHAB, PATIENT DECLINED. PATIENT AND THIS RN DID DISCUSS THE POSSIBILITY OF HOME HEALTH PT/OT, PATIENT STATES "IF THATS WHAT I HAVE TO DO TO GO HOME I WILL DO IT, BUT I WOULD RATHER JUST GO HOME AND BE ON MY OWN." ADVISED PATIENT THAT IF SHE CHANGES HER MIND OR WOULD LIKE ANY FURTHER INFORMATION TO CONTACT FINANCIAL SOLUTIONS ADVISOR. NO CHANGES IN DISCHARGE PLAN AT THIS TIME, PATIENT PREFERS TO DISCHARGE HOME WHEN STABLE. WILL CONTINUE TO FOLLOW UP WITH PATIENT DURING HER VISIT.
[2021-05-15] MEDS ORDERED: CIPROFLOXACIN250 MG PO (11:14)
[2021-05-15] MEDS ORDERED: PRAVASTATIN SOD40 MG PO (11:16)
--- NOTE | 2021-05-15 12:33 | NUR ---
PT GIVEN VERBAL AND WRITTEN DISCHARGE INSTRUCTIONS. VSS ON RA, IV DC'D CATH INTACT. PT TAKEN TO FRONT AND ASSISTED INTO VEHICLE, GRANDDAUGHTER HERE TO TAKE PT HOME.
== END 2021-05-15 12:25 | disposition home or self-care (01) | DRG 69 ==
LOC: ED 15:50 → MS 18:41
PROVIDERS: ADMIT Student in an Organized Health Care Education/Training Program; ATTEND Student in an Organized Health Care Education/Training Program
DX: G45.9 Transient cerebral ischemic attack, unspecified (principal); R47.01 Aphasia; N39.0 Urinary tract infection, site not specified; I48.0 Paroxysmal atrial fibrillation; G89.4 Chronic pain syndrome; R29.702 NIHSS score 2; I67.1 Cerebral aneurysm, nonruptured; E03.9 Hypothyroidism, unspecified; R91.8 Other nonspecific abnormal finding of lung field; J44.9 Chronic obstructive pulmonary disease, unspecified; G25.81 Restless legs syndrome; M54.9 Dorsalgia, unspecified; F31.9 Bipolar disorder, unspecified; E11.9 Type 2 diabetes mellitus without complications; Z88.8 Allergy status to other drugs, medicaments and biological substances; Z98.890 Other specified postprocedural states; Z90.710 Acquired absence of both cervix and uterus; Z79.899 Other long term (current) 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
CPT/HCPCS: 70450; 70496; 70498; 70544; 71045; 78453; 80053; 80061; 85025; 85610; 85730; 92523; 93005; 93010; 93306; 97162; 97166; 97535; 99285-25; A9500; C9803; J1650; J2785; Q3014; Q9967; U0003

== ENCOUNTER 2021-06-05 19:49 | Emergency (ER) | payer MEDICARE, OTHER ==
[~2021-06-05] VITALS: Ht 154.9 cm; Wt 54.9 kg
[~2021-06-05 19:49] MED LIST changes: +CIPROFLOXACIN250 MG PO; +PRAMIPEXOLE D0.75 MG PO; +PRAVASTATIN SOD40 MG PO; +ROPINIROLE HCL3 MG PO
--- OUTSIDE RECORDS SUMMARY | 2021-06-05 19:52 | XMS ---
PreManage Notification: RONALD FLORIAN Security Cloth Neutralizer Events No recent Security Events currently on file CRITERIA MET - Group Notification - PDMP - [facility] - 2 Visits in 30 Days CARE PROVIDERS EVELIO RIVERS Physician Upsetting Machine Operator 05/23/2018-Current PHONE: Unknown BHANU ONEILL Family [facility] 02/24/2021-Current PHONE: [phone] MAI MADISON Internal Medicine: Pulmonary Disease 02/06/2019-Current [...] Hospital - Patient is currently established with [facility]. If patient is seen in the ED during business hours. Please contact CHWs at [facility]. Care Recommendation: This patient has had [...] care. E.D. VISIT COUNT (12 MO.) 6 [facility] H. TOTAL 6 NOTE: Visits indicate total known visits. ED/UCC VISIT TRACKING (12 MO.) 06/05/2021 19:[address] [facility] [facility] [place] [facility] Emergency COMPLAINT: - SUICIDAL 05/13/2021 15:51 [facility] [place] TYPE: Emergency COMPLAINT: - STROKE SYMPTOMS 03/21/2021 10:20 [facility] [place] TYPE: Emergency COMPLAINT: - BACK PAIN DIAGNOSES: - Other assisted (current) 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 - Chronic obstructive pulmonary disease, unspecified - Allergy status to other drugs, medicaments and biological substances - Type 2 diabetes mellitus without complications - Dorsalgia, unspecified 02/23/2021 15:45 LI[facility]TE [facility] [place] TYPE: Emergency COMPLAINT: - LOC DIAGNOSES: [...] other drugs, medicaments and biological substances - exterminator termite (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 of 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 - Chronic obstructive pulmonary disease, unspecified - Bipolar disorder, unspecified - Abnormal results of thyroid function studies - Other middle or intermediate school principal (current) 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 - Allergy status to other drugs, medicaments and biological substances 08/10/2020 14:32 [facility] [place] TYPE: Emergency COMPLAINT: - SYNCOPE DIAGNOSES: - Allergy status to other drugs, medicaments and biological substances - Other chronic pain - Bipolar disorder, unspecified - Type 2 diabetes mellitus without complications - Allergy status to other drugs, medicaments and biological substances - Other middle or intermediate school principal (current) 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 [place] TYPE: Medical Surgical COMPLAINT: - CVA DIAGNOSES: - Bipolar disorder, unspecified - Chronic pain syndrome - Dorsalgia, unspecified - Urinary tract infection, site not specified - Cerebral aneurysm, nonruptured - Aphasia - Other nonspecific abnormal finding of lung field - Chronic obstructive pulmonary disease, unspecified - Acquired absence of both cervix and uterus - NIHSS score 2 - Type 2 diabetes mellitus without complications - Other specified postprocedural states - Allergy status to other drugs, medicaments and biological substances - Paroxysmal atrial fibrillation - Other middle or intermediate school principal (current) 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 - Transient cerebral ischemic attack, unspecified - Hypothyroidism, unspecified - Restless legs syndrome [id number]
--- NOTE | 2021-06-07 17:12 | EKG ---
[facility] [address] [place] [address] Signed Normal sinus rhythm Normal ECG When compared with ECG of 13-MAY-2021 16:19, premature atrial complexes are no longer present Confirmed by TRAE DE LA ROSA MD ([id number]) on 06/07/2021 5:12:07 PM Electronically Signed By: TRAE DE LA ROSA MD 06/07/21 1712 PATIENT NAME: RONALD FLORIAN Electrocardiogram DATE OF : 49 PHYSICIAN: TRAE DE LA ROSA MD REPORT #: [id number] REPORT IS CONFIDENTIAL AND NOT TO BE RELEASED WITHOUT AUTHORIZATION
[2021-06-30] MEDS ORDERED: ELIQUIS5 MG PO (16:53)
== END 2021-06-06 11:34 | disposition home or self-care (01) ==
LOC: ED 19:49
DX: T48.1X2A Poisoning by skeletal muscle relaxants [neuromuscular blocking agents], intentional self-harm, initial encounter (principal); T42.4X2A Poisoning by benzodiazepines, intentional self-harm, initial encounter; E11.9 Type 2 diabetes mellitus without complications; J44.9 Chronic obstructive pulmonary disease, unspecified; Z88.8 Allergy status to other drugs, medicaments and biological substances; Z79.899 Other long term (current) 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
CPT/HCPCS: 80053; 81001; 84443; 85025; 93005; 93010; 99285-25; G0480

== ENCOUNTER 2021-12-04 16:36 | Emergency (ER) | payer MEDICARE ==
[~2021-12-04] VITALS: Ht 154.9 cm; Wt 58.1 kg
[~2021-12-04 16:36] MED LIST changes: +STOOL SOFTENER1 EAC2 PO; +SULFAMETHOXAZO1 EAC1 PO
--- OUTSIDE RECORDS SUMMARY | 2021-12-04 16:38 | XMS ---
PreManage Notification: RONALD FLORIAN Security Hand Deicer Element Winder Events No recent Security Events currently on file CRITERIA MET - Group Notification - PDMP - [facility] - Has Care Guidelines CARE PROVIDERS EVELIO RIVERS Physician Septic Tank Setter 05/23/2018-Current PHONE: Unknown BHANU DE LA PAZ [facility] 02/24/2021-Current PHONE: [phone] MAI MADISON Internal Medicine: Pulmonary Disease 02/06/2019-Current PHONE: Unknown GEOFF RIVERA Psychiatry \T\ Neurology: Addiction Psychiatry Current PHONE: Unknown Mateus has no Care Guidelines for this patient. Care History Medical/Surgical 10/22/2021 [facility] Follow up with PCP Dr. De La Paz on 11/16/[address] Waters, oncologist, on 09/25/2019 [facility] Patient aware of PCP appt. on 10/17/2019 and of the walk in clinic, but stated she used ED because she has respiratory issues with fever and was too weak to walk. 08/08/2019 [facility] - PATIENT HAS AN APT WITH PCP DR DE LA PAZ ON 10/17/19 E.D. VISIT COUNT (12 MO.) 3 [facility] H. 1 [facility] H. 5 [facility]. TOTAL 9 NOTE: Visits indicate total known visits. ED/UCC VISIT TRACKING (12 MO.) 12/04/2021 16:37 [facility] [place] TYPE: Emergency COMPLAINT: - POSS BROKEN HIP 08/05/2021 14:09 [facility] [place] TYPE: Emergency DIAGNOSES: 02816. confusion 33899. Suicidal ideations 40799. Contusion of scalp, initial encounter 08/04/2021 20:05 [facility] TYPE: Emergency COMPLAINT: - Headache DIAGNOSES: - Headache - Headache, unspecified - Suicidal ideations 08/03/2021 20:56 [facility] TYPE: Emergency COMPLAINT: - Fall DIAGNOSES: - Wedge compression fracture of third thoracic vertebra, initial encounter for closed fracture - Fall - Abnormal coagulation profile - Wedge compression fracture of second thoracic vertebra, initial encounter for closed fracture - Dehydration - Laceration without foreign body of scalp, initial encounter - Unspecified injury of head, initial encounter 08/03/2021 07:39 [facility] [place] . TYPE: Emergency COMPLAINT: - chest pain DIAGNOSES: - Suicidal ideations - Chest Pain - Chest pain, unspecified - Other 06/05/2021 19:49 [facility] [place] TYPE: Emergency COMPLAINT: - SUICIDAL DIAGNOSES: - Suicidal ideations - Other intermediate teacher (current) 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 - Chronic obstructive pulmonary disease, unspecified - Allergy status to other drugs, medicaments and biological substances - Poisoning by benzodiazepines, intentional self-harm, initial encounter - Type 2 diabetes mellitus without complications - Poisoning by skeletal muscle relaxants [neuromuscular blocking agents], intentional self-harm, initial encounter 05/13/2021 15:51 [facility] [place] TYPE: Emergency COMPLAINT: - STROKE SYMPTOMS 03/21/2021 10:20 [facility] [place] TYPE: Emergency COMPLAINT: - BACK PAIN DIAGNOSES: - Other nursing home (current) 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 [...] Chronic obstructive pulmonary disease, unspecified - Other nursing home (current) 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 INPATIENT VISIT TRACKING (12 MO.) 10/21/2021 10:54 [facility] [place] TYPE: Observation COMPLAINT: - CONSTIPATION DIAGNOSES: - Type 2 diabetes mellitus without complications - Chronic atrial fibrillation, unspecified - Retention of urine, unspecified - Restless legs syndrome - MCC (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 of systemic steroids - Chronic obstructive pulmonary disease, unspecified - Other constipation - Hyperlipidemia, unspecified - Allergy status to other drugs, medicaments and biological substances - Personal history of urinary (tract) infections - Insomnia, unspecified - Hypothyroidism, unspecified - Other intermediate teacher (current) 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 - Constipation, unspecified - exterminator helper (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 of 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 - Hormone replacement therapy 08/06[facility]2021 [facility] [place] [facility] COMPLAINT: - MDD SEVERE WITHOUT PSYCHOTIC FEATURES DIAGNOSES: - Restless legs syndrome - Major depressive disorder, single episode, severe without psychotic features - Paroxysmal atrial fibrillation - Suicidal ideations - Paroxysmal atrial fibrillation - Unspecified injury of head, initial encounter - Unspecified injury of head, initial encounter - Restless legs syndrome - Hypothyroidism, unspecified - Hypothyroidism, unspecified - Suicidal ideations 05/13/2021 18:41 [facility] [place] TYPE: Medical Surgical COMPLAINT: - CVA [...] substances - Paroxysmal atrial fibrillation - Other intermediate teacher (current) 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 - Transient cerebral ischemic attack, unspecified - Hypothyroidism, unspecified - Restless legs syndrome [email or web address]
[2021-12-04] MEDS ORDERED: CYCLOBENZAPRINE10 MG PO (20:55)
== END 2021-12-04 21:45 | disposition home or self-care (01) ==
LOC: ED 16:36
DX: S76.012A Strain of muscle, fascia and tendon of left hip, initial encounter (principal); E11.9 Type 2 diabetes mellitus without complications; J44.9 Chronic obstructive pulmonary disease, unspecified; G25.81 Restless legs syndrome; Z88.8 Allergy status to other drugs, medicaments and biological substances; Z79.899 Other long term (current) 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; Z79.01 Long term (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 of 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; W18.30XA Fall on same level, unspecified, initial encounter
CPT/HCPCS: 36415; 72192; 73502; 80048; 81001; 85025; 85610; 96374; 96376; 99284-25; J3010; J7030

== ENCOUNTER 2022-02-12 21:51 | Emergency (ER) | payer MEDICARE, OTHER ==
[~2022-02-12] VITALS: Ht 154.9 cm; Wt 58.1 kg
[~2022-02-12 21:51] MED LIST changes: +CYCLOBENZAPRINE10 MG PO; +LIDOCAINE-PRILOC5 GM TOP; +TAMSULOSIN HCL0.4 MG PO; +WARFARIN SODIU2.5 MG PO
--- OUTSIDE RECORDS SUMMARY | 2022-02-12 21:54 | XMS ---
PreManage Notification: RONALD FLORIAN Security Lead Sustainability Specialist Events No recent Security Events currently on file CRITERIA MET - PDMP - [facility] Guidelines - Group Notification CARE PROVIDERS EVELIO RIVERS Physician Senior Case Manager 05/23/2018-Current PHONE: Unknown BHANU DE LA PAZ [facility] 02/24/2021-Current PHONE: [phone] MAI MADISON Internal Medicine: Pulmonary Disease 02/06/2019-Current PHONE: Unknown GEOFF RIVERA Psychiatry \T\ Neurology: Addiction Psychiatry Current PHONE: Unknown Mateus has no Care Guidelines for this patient. Care History Medical/Surgical 10/22/2021 [facility] Follow up with PCP Dr. De La Paz on 11/16/[address] Waters, oncologist, on 09/25/2019 [facility] Patient aware of PCP appt. on 10/17/2019 and of the walk in clinic, but stated she used ED because she has respiratory issues with fever and was too weak to walk. 08/08/2019 [facility] - PATIENT HAS AN APT WITH PCP DR DE LA PAZ ON 10/17/19 E.D. VISIT COUNT (12 MO.) 3 [facility] H. 1 [facility] H. 6 [facility]. TOTAL 10 NOTE: Visits indicate total known visits. ED/UCC VISIT TRACKING (12 MO.) 02/12/2022 21:52 [facility] [place] TYPE: Emergency COMPLAINT: - COUGH 12/04/2021 16:37 [facility] [place] TYPE: Emergency COMPLAINT: - POSS BROKEN HIP DIAGNOSES: - Pain in left hip - Allergy status to other drugs, medicaments and biological substances - Type 2 diabetes mellitus without complications - Restless legs syndrome - Fall on same level, unspecified, initial encounter - Other ferry terminal agent (current) 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 - long term (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 of 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 - Chronic obstructive pulmonary disease, unspecified - Strain of muscle, fascia and tendon of left hip, initial encounter 08[facility]2021 [facility] [place] [facility] DIAGNOSES: 42365. confusion . Suicidal ideations . Contusion of scalp, initial encounter 08/04/2021 20:05 [facility] [place] TYPE: Emergency COMPLAINT: - Headache DIAGNOSES: - Headache - Headache, unspecified - Suicidal ideations 08/03/2021 20:56 [facility] [place] TYPE: Emergency COMPLAINT: - Fall DIAGNOSES: - Wedge compression fracture of third thoracic vertebra, initial encounter for closed fracture - Fall - Abnormal coagulation profile - Wedge compression fracture of second thoracic vertebra, initial encounter for closed fracture - Dehydration - Laceration without foreign body of scalp, initial encounter - Unspecified injury of head, initial encounter 08/03/2021 07:39 [facility] [place] TYPE: Emergency COMPLAINT: - chest pain DIAGNOSES: - Suicidal ideations - Chest Pain - Chest pain, unspecified - Other 06/05/2021 19:49 [facility] [place] TYPE: Emergency COMPLAINT: - SUICIDAL DIAGNOSES: - Suicidal ideations - Other residential (current) 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 - Chronic obstructive pulmonary [...] COMPLAINT: - BACK PAIN DIAGNOSES: - Other residential (current) 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 - Chronic obstructive pulmonary [...] Chronic obstructive pulmonary disease, unspecified - Other residential (current) 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 INPATIENT VISIT TRACKING (12 MO.) 10/21/2021 10:54 [facility] [place] TYPE: Observation COMPLAINT: - CONSTIPATION DIAGNOSES: - Type 2 diabetes mellitus without complications - Chronic atrial fibrillation, unspecified - Retention of urine, unspecified - Restless legs syndrome - custodial (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 of systemic steroids - Chronic obstructive pulmonary disease, unspecified - Other constipation - Hyperlipidemia, unspecified - Allergy status to other drugs, medicaments and biological substances - Personal history of urinary (tract) infections - Insomnia, unspecified - Hypothyroidism, unspecified - Other residential (current) 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 - Constipation, unspecified - custodial (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 of 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 - Hormone replacement therapy 08/06/2021 15:[facility] [place] TYPE: Psychiatric Services COMPLAINT: - MDD [...] Hypothyroidism, unspecified - Suicidal ideations 05/13/2021 18:[address] [facility] [place] [...] substances - Paroxysmal atrial fibrillation - Other residential (current) 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 - Transient cerebral ischemic attack, unspecified - Hypothyroidism, unspecified - Restless legs syndrome [email or web address]
[2022-02-12] MEDS ORDERED: GUAIFEN-CODEINE10 ML PO (23:19)
== END 2022-02-12 23:43 | disposition home or self-care (01) ==
LOC: ED 21:51
DX: J40 Bronchitis, not specified as acute or chronic (principal); E11.9 Type 2 diabetes mellitus without complications; J44.9 Chronic obstructive pulmonary disease, unspecified; G25.81 Restless legs syndrome; Z88.8 Allergy status to other drugs, medicaments and biological substances; Z79.899 Other long term (current) 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; Z79.01 Long term (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 of 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; Z20.822 Contact with and (suspected) exposure to COVID-19
CPT/HCPCS: 36415; 71045; 80048; 85025; 99284-25; C9803; U0003

== ENCOUNTER 2022-04-30 19:06 | Emergency (ER) | payer MEDICARE ==
[~2022-04-30] VITALS: Ht 154.9 cm; Wt 54.0 kg
[~2022-04-30 19:06] MED LIST changes: +GUAIFEN-CODEINE10 ML PO; +PRAMIPEXOLE DIHY1 MG PO
--- OUTSIDE RECORDS SUMMARY | 2022-04-30 19:08 | XMS ---
PreManage Notification: RONALD FLORIAN Security Dukey Rider Events No recent Security Events currently on file CRITERIA MET - Group Notification - [facility] - Has Care Guidelines - PDMP CARE PROVIDERS EVELIO RIVERS Physician Bookkeepers Supervisor 05/23/2018-Current PHONE: Unknown BHANU DE LA PAZ [facility] 02/24/2021-Current PHONE: Unknown MAI MADISON Internal Medicine: Pulmonary Disease 02/06/2019-Current PHONE: Unknown GEOFF RIVERA Psychiatry \T\ Neurology: Addiction Psychiatry Current PHONE: [phone] Mateus has no Care Guidelines for this patient. Care History Medical/Surgical 10/22/2021 [facility] Follow up with PCP Dr. De La Paz on 11/16/[address] Waters, oncologist, on 09/25/2019 [facility] Patient aware of PCP appt. on 10/17/2019 and of the walk in clinic, but stated she used ED because she has respiratory issues with fever and was too weak to walk. 08/08/2019 [facility] - PATIENT HAS AN APT WITH PCP DR DE LA PAZ ON 10/17/19 E.D. VISIT COUNT (12 MO.) 3 [facility] H. 1 [facility] H. 5 [facility]. TOTAL 9 NOTE: Visits indicate total known visits. ED/UCC VISIT TRACKING (12 MO.) 04/30/2022 19:07 [facility] [place] TYPE: Emergency COMPLAINT: - CHEST PAIN 02/12/2022 21:52 [facility] [place] TYPE: Emergency COMPLAINT: - COUGH DIAGNOSES: - Bronchitis, not specified as acute or chronic - Restless legs syndrome - Allergy status to other drugs, medicaments and biological substances - Cough, unspecified - Chronic obstructive pulmonary disease, unspecified - Other terminal carman (current) 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 - Contact with and (suspected) exposure to COVID-19 - long-term (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 of 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 - Type 2 diabetes mellitus without complications 12/04/2021 16:37 [facility] [place] TYPE: Emergency COMPLAINT: - POSS BROKEN HIP DIAGNOSES: - Pain in left hip - Allergy status to other drugs, medicaments and biological substances - Type 2 diabetes mellitus without complications - Restless legs syndrome - Fall on same level, unspecified, initial encounter - Other mcc (current) 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 - termite helper (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 of 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 - Chronic obstructive pulmonary disease, unspecified - Strain of muscle, fascia and tendon of left hip, initial encounter 08/05/2021 14:09 [facility] TYPE: Emergency DIAGNOSES: 33965. confusion 43619. Suicidal ideations . Contusion of scalp, initial encounter 08/04/2021 20:05 [facility] TYPE: Emergency COMPLAINT: - Headache DIAGNOSES: - Headache - Headache, unspecified - Suicidal ideations 08/03/2021 20:56 [facility] TYPE: Emergency COMPLAINT: - Fall DIAGNOSES: - Wedge compression fracture of third thoracic vertebra, initial encounter for closed fracture - Fall - Abnormal coagulation profile - Wedge compression fracture of second thoracic vertebra, initial encounter for closed fracture - Dehydration - Laceration without foreign body of scalp, initial encounter - Unspecified injury of head, initial encounter 08/03/2021 07:39 [facility] [place] H. TYPE: Emergency COMPLAINT: - chest pain DIAGNOSES: - Suicidal ideations - Chest Pain - Chest pain, unspecified - Other 06/05/2021 19:49 [facility] [place] TYPE: Emergency COMPLAINT: - SUICIDAL DIAGNOSES: - Suicidal ideations - Other terminal carman (current) 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 - Chronic obstructive pulmonary disease, unspecified - Allergy status to other drugs, medicaments and biological substances - Poisoning by benzodiazepines, intentional self-harm, initial encounter - Type 2 diabetes mellitus without complications - Poisoning by skeletal muscle relaxants [neuromuscular blocking agents], intentional self-harm, initial encounter 05/13/2021 15:51 [facility] [place] TYPE: Emergency COMPLAINT: - STROKE SYMPTOMS INPATIENT VISIT TRACKING (12 MO.) 10/21/2021 10:54 [facility] [place] TYPE: Observation COMPLAINT: - CONSTIPATION DIAGNOSES: - Allergy status to other drugs, medicaments and biological substances - Hormone replacement therapy - long-term (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 of 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 - Constipation, unspecified - Contact with and (suspected) exposure to COVID-19 - Other mcc (current) 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 - Hypothyroidism, unspecified - Insomnia, unspecified - Personal history of urinary (tract) infections - Type 2 diabetes mellitus without complications - Hyperlipidemia, unspecified - Other constipation - Chronic obstructive pulmonary disease, unspecified - long-term (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 of systemic steroids - Restless legs syndrome - Retention of urine, unspecified - Chronic atrial fibrillation, unspecified 08/06/2021 15:56 [facility] [place] [facility] COMPLAINT: - MDD [...] substances - Paroxysmal atrial fibrillation - Other terminal carman (current) 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 - Transient cerebral ischemic attack, unspecified - Hypothyroidism, unspecified - Restless legs syndrome [email or web address]
[2022-04-30] MEDS ORDERED: METHOCARBAMOL500 MG PO (19:21)
[2022-04-30] MEDS ORDERED: LEVOTHYROXINE100 MCG PO (19:22)
[2022-04-30] MEDS ORDERED: SLOW RELEASE I142 MG PO (19:23)
--- NOTE | 2022-05-01 08:18 | EKG ---
[facility] [address] [facility] [place] [address] Signed Normal sinus rhythm Left axis deviation Inferior infarct , age undetermined Anterior infarct , age undetermined Abnormal ECG When compared with ECG of 05-JUN-2021 20:36, Anterior infarct is now present No significant change was found Confirmed by REJI GONSALEZ MD ([id number]) on 05/01/2022 8:18:02 AM Electronically Signed By: REJI GONSALEZ MD 05/01/22 0818 PATIENT NAME: ROSANA RONALD HANNAH Electrocardiogram DATE OF : 49 PHYSICIAN: REJI GONSALEZ MD REPORT #: [id number] REPORT IS CONFIDENTIAL AND NOT TO BE RELEASED WITHOUT AUTHORIZATION
== END 2022-04-30 21:28 | disposition home or self-care (01) ==
LOC: ED 19:06
DX: R07.2 Precordial pain (principal); E11.9 Type 2 diabetes mellitus without complications; J44.9 Chronic obstructive pulmonary disease, unspecified; Z88.8 Allergy status to other drugs, medicaments and biological substances; Z79.899 Other long term (current) 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; Z79.01 Long term (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 of 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
CPT/HCPCS: 36415; 71045; 80053; 81001; 83735; 84484; 85025; 85610; 93005; 93010; 99285-25

== ENCOUNTER 2022-06-19 09:12 | Emergency (ER) | payer MEDICARE ==
[~2022-06-19] VITALS: Ht 154.9 cm; Wt 54.9 kg
[~2022-06-19 09:12] MED LIST changes: +SLOW RELEASE I142 MG PO
--- OUTSIDE RECORDS SUMMARY | 2022-06-19 09:14 | XMS ---
PreManage Notification: RONALD FLORIAN Security Superintendent Recreation Events No recent Security Events currently on file CRITERIA MET - PDMP - Group Notification - [facility] - Has [facility] CARE PROVIDERS EVELIO RIVERS Physician Traveling Accountant 05/23/2018-Current PHONE: Unknown BHANU DE LA PAZ [facility] 02/24/2021-Current PHONE: Unknown MAI MADISON Internal Medicine: Pulmonary Disease 02/06/2019-Current PHONE: Unknown GEOFF RIVERA Psychiatry \T\ Neurology: Psychiatry Current PHONE: [phone] Mateus has no Care Guidelines for this patient. Care History Medical/Surgical 10/22/2021 [facility] Follow up with PCP Dr. De La Paz on 11/16/[address] Waters, oncologist, on 09/25/2019 [facility] Patient aware of PCP appt. on 10/17/2019 and of the walk in clinic, but stated she used ED because she has respiratory issues with fever and was too weak to walk. 08/08/2019 [facility] - PATIENT HAS AN APT WITH PCP DR DE LA PAZ ON 10/17/19 E.D. VISIT COUNT (12 MO.) 3 [facility]. 1 [facility] H. 4 [facility]. TOTAL 8 NOTE: Visits indicate total known visits. ED/UCC VISIT TRACKING (12 MO.) 06/19/2022 09:12 [facility] [place] TYPE: Emergency COMPLAINT: - FLANK PAIN 04/30/2022 19:07 [facility] [place] TYPE: Emergency COMPLAINT: - CHEST PAIN DIAGNOSES: - Precordial pain - Chronic obstructive pulmonary disease, unspecified - Type 2 diabetes mellitus without complications - medical terminologist (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 of 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 - Other m[facility]p (current) 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 - Allergy status to other drugs, medicaments and biological substances 02/12/2022 21:52 [facility] [place] TYPE: Emergency COMPLAINT: - COUGH DIAGNOSES: - Restless legs syndrome - Type 2 diabetes mellitus without complications - Contact with and (suspected) exposure to COVID-19 - Chronic obstructive pulmonary disease, unspecified - Allergy status to other drugs, medicaments and biological substances - Bronchitis, not specified as acute or chronic - longterm (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 of 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 - Other m[facility]p (current) 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 - Cough, unspecified 12/04/2021 16:37 [facility] [place] [facility] [place]: Emergency COMPLAINT: - POSS BROKEN HIP DIAGNOSES: - Allergy status to other drugs, medicaments and biological substances - Strain of muscle, fascia and tendon of left hip, initial encounter - medical terminologist (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 of 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 - Fall on same level, unspecified, initial encounter - Type 2 diabetes mellitus without complications - Pain in left hip - Chronic obstructive pulmonary disease, unspecified - Other intermediate manager (current) 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 - Restless legs syndrome 08/05/2021 14:09 [facility] [place] TYPE: Emergency DIAGNOSES: 92221. confusion . Suicidal ideations . Contusion of scalp, initial encounter 08/04/2021 20:05 [facility] TYPE: Emergency COMPLAINT: - Headache DIAGNOSES: - Headache, unspecified - Suicidal ideations - Headache 08/03/2021 20:56 [facility] [place] TYPE: Emergency COMPLAINT: - Fall DIAGNOSES: - Fall - Unspecified injury of head, initial encounter - Dehydration - Abnormal coagulation profile - Wedge compression fracture of third thoracic vertebra, initial encounter for closed fracture - Laceration without foreign body of scalp, initial encounter - Wedge compression fracture of second thoracic vertebra, initial encounter for closed fracture 08/03/2021 07:39 [facility] [place] TYPE: Emergency COMPLAINT: - chest pain DIAGNOSES: - Chest Pain - Chest pain, unspecified - Suicidal ideations - Other INPATIENT VISIT TRACKING (12 MO.) 10/21/2021 10:54 [facility] [place] TYPE: Observation COMPLAINT: - CONSTIPATION DIAGNOSES: - Chronic atrial fibrillation, unspecified - Allergy status to other drugs, medicaments and biological substances - medical terminologist (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 of 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 - Other constipation - Contact with and (suspected) exposure to COVID-19 - medical terminologist (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 of systemic steroids - Hypothyroidism, unspecified - Retention of urine, unspecified - Personal history of urinary (tract) infections - Type 2 diabetes mellitus without complications - Hormone replacement therapy - Hyperlipidemia, unspecified - Constipation, unspecified - Chronic obstructive pulmonary disease, unspecified - Other [facility]p (current) 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 - Restless legs syndrome - Insomnia, unspecified 08/06/2021 15:56 [facility] [place] TYPE: Psychiatric Services COMPLAINT: - MDD SEVERE WITHOUT PSYCHOTIC FEATURES DIAGNOSES: - Major depressive disorder, single episode, severe without psychotic features - Hypothyroidism, unspecified - Unspecified injury of head, initial encounter - Paroxysmal atrial fibrillation - Paroxysmal atrial fibrillation - Hypothyroidism, unspecified - Restless legs syndrome - Restless legs syndrome - Unspecified injury of head, initial encounter - Suicidal ideations - Suicidal ideations [email or web address]
[2022-06-19] MEDS ORDERED: ESTRADIOL42.5 GM PV (14:05)
[2022-06-19] MEDS ORDERED: PERCOCET 5-3251 EACH PO (16:20)
--- NOTE | 2022-06-20 16:22 | EKG ---
[facility] [address] [facility] [place] [address] Signed Normal sinus rhythm Normal ECG When compared with ECG of 30-APR-2022 19:12, Criteria for Anterior infarct are no longer present Criteria for Inferior infarct are no longer present Confirmed by TRAE DE LA ROSA MD ([id number]) on 06/20/2022 4:21:50 PM Electronically Signed By: TRAE DE LA ROSA MD 06/20/22 1622 PATIENT NAME: RONALD FLORIAN Electrocardiogram DATE OF : 49 PHYSICIAN: TRAE DE LA ROSA MD REPORT #: [id number] REPORT IS CONFIDENTIAL AND NOT TO BE RELEASED WITHOUT AUTHORIZATION
== END 2022-06-19 16:36 | disposition home or self-care (01) ==
LOC: ED 09:12
DX: R10.9 Unspecified abdominal pain (principal); M54.9 Dorsalgia, unspecified; E11.9 Type 2 diabetes mellitus without complications; J44.9 Chronic obstructive pulmonary disease, unspecified; Z88.8 Allergy status to other drugs, medicaments and biological substances; Z79.899 Other long term (current) 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
CPT/HCPCS: 36415; 74176; 80053; 81001; 83605; 84484; 85025; 93005; 93010; 96374; 96376; 99284-25; J2270; J7030

== ENCOUNTER 2022-07-26 12:13 | Emergency (ER) | payer MEDICARE ==
[~2022-07-26] VITALS: Ht 154.9 cm; Wt 54.9 kg
[~2022-07-26 12:13] MED LIST changes: +ESTRADIOL42.5 GM PV
--- OUTSIDE RECORDS SUMMARY | 2022-07-26 12:14 | XMS ---
PreManage Notification: RONALD FLORIAN Security Credentialing Coordinator Events No recent Security Events currently on file CRITERIA MET - Group Notification - PDMP - - Has Care Guidelines CARE PROVIDERS EVELIO RIVERS Physician Brace End [employer] Former 05/23/2018-Current PHONE: Unknown BHANU DE LA PAZ [facility] 02/24/2021-Current PHONE: Unknown MAI MADISON Internal Medicine: Pulmonary Disease 02/06/2019-Current PHONE: Unknown GEOFF RIVERA Psychiatry \T\ Neurology: Psychiatry Current PHONE: [phone] Mateus has no Care Guidelines for this patient. Care History Medical/Surgical 10/22/2021 [facility] Follow up with PCP Dr. De La Paz on 11/16/[address] Waters, oncologist, on 09/25/2019 [facility] Patient aware of PCP appt. on 10/17/2019 and of the walk in clinic, but stated she used ED because she has respiratory issues with fever and was too weak to walk. 08/08/2019 [facility] - PATIENT HAS AN APT WITH PCP DR DE LA PAZ ON 10/17/19 E.D. VISIT COUNT (12 MO.) 3 [facility]. 1 [facility] H. 5 [facility]. TOTAL 9 NOTE: Visits indicate total known visits. ED/UCC VISIT TRACKING (12 MO.) 07/26/2022 12:13 [facility] [place] TYPE: Emergency COMPLAINT: - WEAKNESS 06/19/2022 09:12 [facility] [place] TYPE: Emergency COMPLAINT: - FLANK PAIN DIAGNOSES: - Allergy status to other drugs, medicaments and biological substances - Unspecified abdominal pain - Chronic obstructive pulmonary disease, unspecified - Type 2 diabetes mellitus without complications - Dorsalgia, unspecified - Other fdc (current) 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 04/30/2022 19:07 [facility] [place] TYPE: Emergency COMPLAINT: - CHEST PAIN DIAGNOSES: - Chronic obstructive pulmonary disease, unspecified - Type 2 diabetes mellitus without complications - termite control technician (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 of 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 - Other fdc (current) 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 - Allergy status to other drugs, medicaments and biological substances - Precordial pain 02/12/2022 21:52 [facility] [place] TYPE: Emergency COMPLAINT: - COUGH DIAGNOSES: - Chronic obstructive pulmonary disease, unspecified - Allergy status to other drugs, medicaments and biological substances - Bronchitis, not specified as acute or chronic - termite control technician (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 of 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 - Other fdc (current) 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 - Cough, unspecified - Restless legs syndrome - Type 2 diabetes mellitus without complications - Contact with and (suspected) exposure to COVID-19 12/04/2021 16:37 [facility] [place] TYPE: Emergency COMPLAINT: - POSS BROKEN HIP DIAGNOSES: - Fall on same level, unspecified, initial encounter - Type 2 diabetes mellitus without complications - Pain in left hip - Chronic obstructive pulmonary disease, unspecified - Other fdc (current) 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 - Restless legs syndrome - Allergy status to other drugs, medicaments and biological substances - Strain of muscle, fascia and tendon of left hip, initial encounter - nursing home (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 of 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 08/05/2021 14:09 [facility] [place] TYPE: Emergency DIAGNOSES: 93[address]. confusion . Contusion of scalp, initial encounter . Suicidal ideations 08/04/2021 20:05 [facility] TYPE: Emergency COMPLAINT: - Headache DIAGNOSES: - Suicidal ideations - Headache - Headache, unspecified 08/03/2021 20:[address] [facility] [place] TYPE: Emergency COMPLAINT: - Fall DIAGNOSES: - Dehydration - Abnormal coagulation profile - Wedge compression fracture of third thoracic vertebra, initial encounter for closed fracture - Laceration without foreign body of scalp, initial encounter - Wedge compression fracture of second thoracic vertebra, initial encounter for closed fracture - Fall - Unspecified injury of head, initial encounter 08/03/2021 07:39 [facility] TYPE: Emergency COMPLAINT: - chest pain DIAGNOSES: - Chest pain, unspecified - Suicidal ideations - Other - Chest Pain INPATIENT VISIT TRACKING (12 MO.) 10/21/2021 10:[address] [facility] [place] TYPE: Observation COMPLAINT: - CONSTIPATION DIAGNOSES: - termite control technician (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 of systemic steroids - Hypothyroidism, unspecified - Retention of urine, unspecified - Personal history of urinary (tract) infections - Type 2 diabetes mellitus without complications - Hormone replacement therapy - Hyperlipidemia, unspecified - Constipation, unspecified - Chronic obstructive pulmonary disease, unspecified - Other termite control technician (current) 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 - Restless legs syndrome - Insomnia, unspecified - Chronic atrial fibrillation, unspecified - Allergy status to other drugs, medicaments and biological substances - termite control technician (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 of 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 - Other constipation - Contact with and (suspected) exposure to COVID-19 08/06/2021 15[facility] COMPLAINT: - MDD SEVERE WITHOUT PSYCHOTIC FEATURES DIAGNOSES: - Paroxysmal atrial fibrillation - Paroxysmal atrial fibrillation - Hypothyroidism, unspecified - Restless legs syndrome - Restless legs syndrome - Unspecified injury of head, initial encounter - Suicidal ideations - Suicidal ideations - Major depressive disorder, single episode, severe without psychotic features - Hypothyroidism, unspecified - Unspecified injury of head, initial encounter [email or web address]
--- NOTE | 2022-07-26 20:24 | EKG ---
[facility] [address] [place], [place] [address] Signed Normal sinus rhythm Normal ECG When compared with ECG of 19-JUN-2022 11:24, Nonspecific T wave abnormality, improved in Lateral leads Confirmed by REJI GONSALEZ MD ([id number]) on 07/26/2022 8:24:20 PM Electronically Signed By: REJI GONSALEZ MD 07/26/222023 PATIENT NAME: RONALD FLORIAN Electrocardiogram DATE OF : 49 PHYSICIAN: REJI GONSALEZ MD REPORT #: [id number] REPORT IS CONFIDENTIAL AND NOT TO BE RELEASED WITHOUT AUTHORIZATION
== END 2022-07-26 14:44 | disposition home or self-care (01) ==
LOC: ED 12:13
DX: U07.1 COVID-19 (principal); Z53.29 Procedure and treatment not carried out because of patient's decision for other reasons; E11.9 Type 2 diabetes mellitus without complications; J44.9 Chronic obstructive pulmonary disease, unspecified; Z88.8 Allergy status to other drugs, medicaments and biological substances; Z79.899 Other long term (current) 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; Z79.01 Long term (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 of 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
CPT/HCPCS: 36415; 71045; 80053; 81001; 85025; 85610; 87502; 93005; 93010; 96374; 99285-25; C9803; J7040; U0003

== ENCOUNTER 2023-01-10 18:31 | Emergency (ER) | payer MEDICARE ==
[~2023-01-10] VITALS: Ht 154.9 cm; Wt 58.1 kg
[~2023-01-10 18:31] MED LIST changes: +TRAZODONE HCL50 MG PO; +VITAMIN C500 M1 PO; +VITAMIN D325 MC2 PO
--- OUTSIDE RECORDS SUMMARY | 2023-01-10 18:33 | XMS ---
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 - Patient with suicidal and/or homicidal ideations eloped. - Patient eloped with IV in place. Details: Patient LWBS. 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 Care History Medical/Surgical 10/22/2021 [facility] Follow up with PCP Dr. De La Paz on 11/16/[address] Waters, oncologist, on 09/25/2019 [facility] Patient aware of PCP appt. on 10/17/2019 and of the walk in clinic, but stated she used ED because she has respiratory issues with fever and was too weak to walk. 08/08/2019 [facility] - PATIENT HAS AN APT WITH PCP DR DE LA PAZ ON 10/17/19 E.Esteban VISIT COUNT (12 MO.) 7 [facility]. TOTAL 7 NOTE: Visits indicate total known visits. 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 - Other termite inspector (current) 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 - Chronic obstructive pulmonary disease, unspecified - Procedure and treatment not carried out because of patient's decision for other reasons - Cough, unspecified 06/19/2022 09:12 [facility] [place] TYPE: Emergency COMPLAINT: - FLANK PAIN DIAGNOSES: - Chronic obstructive pulmonary disease, unspecified - Type 2 diabetes mellitus without complications - Dorsalgia, unspecified - Other long-term (current) 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 - Allergy status to other drugs, medicaments and biological substances - Unspecified abdominal pain 04/30/2022 19:07 [facility] [place] TYPE: Emergency COMPLAINT: - CHEST PAIN DIAGNOSES: - 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 [place] TYPE: Emergency COMPLAINT: - COUGH DIAGNOSES: - Bronchitis, not specified as acute or chronic - shelter (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 of 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 - Other termite inspector (current) 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 - Cough, unspecified - Restless legs syndrome - Type 2 diabetes mellitus without complications - Contact with and (suspected) exposure to COVID-19 - Chronic obstructive pulmonary disease, unspecified - Allergy status to other drugs, medicaments and biological substances INPATIENT VISIT TRACKING (12 MO.) No inpatient visits to display in this time frame [email or web address]
--- NOTE | 2023-01-11 07:48 | EKG ---
[facility] [address] [place], [place] [address] Signed Normal sinus rhythm Normal ECG No previous ECGs available Confirmed by REJI GONSALEZ MD ([id number]) on 01/11/2023 7:48:13 AM Electronically Signed By: REJI GONSALEZ MD 01/11/23 0748 PATIENT NAME: RONALD FLORIAN JESSI Electrocardiogram DATE OF : 49 PHYSICIAN: REJI GONSALEZ MD REPORT #: [id number] REPORT IS CONFIDENTIAL AND NOT TO BE RELEASED WITHOUT AUTHORIZATION
[2023-01-12] MEDS ORDERED: SYNTHROID112 MCG PO (03:46)
[2023-01-12] MEDS ORDERED: CEFUROXIME500 MG PO (03:46)
== END 2023-01-12 06:46 | disposition short-term general hospital (02) ==
LOC: ED 18:31
DX: R45.851 Suicidal ideations (principal); N39.0 Urinary tract infection, site not specified; M54.9 Dorsalgia, unspecified; G89.29 Other chronic pain; Z20.822 Contact with and (suspected) exposure to COVID-19; E11.9 Type 2 diabetes mellitus without complications; J44.9 Chronic obstructive pulmonary disease, unspecified; G25.81 Restless legs syndrome; F31.9 Bipolar disorder, unspecified; Z79.899 Other long term (current) 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; Z88.8 Allergy status to other drugs, medicaments and biological substances; Z79.01 Long term (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 of 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
CPT/HCPCS: 36415; 51798; 80053; 81001; 84443; 84484; 85025; 85610; 87088; 93005; 93010; 99285-25; A9270; G0480; J1885; U0003

== ENCOUNTER → 2023-03-29 | Emergency (ER) | payer MEDICARE ==
[~2023-03-29] VITALS: Ht 154.9 cm; Wt 58.1 kg
[~2023-03-29] MED LIST changes: +CEFUROXIME500 MG PO; +CEPHALEXIN250 MG PO; +PYRIDIUM100 MG PO; +SYNTHROID112 MCG PO
--- OUTSIDE RECORDS SUMMARY | 2023-03-29 05:12 | XMS ---
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 - Patient with suicidal and/or homicidal ideations eloped. - Patient eloped with IV in place. Details: Patient LWBS. 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 Care History Medical/Surgical 10/22/2021 [facility] Follow up with PCP Dr. De La Paz on 11/16/[address] Waters, oncologist, on 09/25/2019 [facility] Patient aware of PCP appt. on 10/17/2019 and of the walk in clinic, but stated she used ED because she has respiratory issues with fever and was too weak to walk. 08/08/2019 [facility] - PATIENT HAS AN APT WITH PCP DR DE LA PAZ ON 10/17/19 E.DJacquelyn VISIT COUNT (12 MO.) 7 [facility]. TOTAL 7 NOTE: Visits indicate total known visits. ED/UCC VISIT TRACKING (12 MO.) 03/29/2023 05:09 [facility] [place] TYPE: Emergency COMPLAINT: - POSS UTI 01/10/2023 18:31 [facility] [place] TYPE: Emergency COMPLAINT: - SUICIDAL IDEATIONS DIAGNOSES: - Allergy status to other drugs, medicaments and biological substances - Bipolar disorder, unspecified - Chronic obstructive pulmonary disease, unspecified - Contact with and (suspected) exposure to COVID-19 - Dorsalgia, unspecified - intermediate manager (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 of 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 - Other chronic pain - Other superintendent container terminal (current) 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 - Restless legs syndrome - Suicidal ideations - Type 2 diabetes mellitus without complications - Urinary tract infection, site not specified 01/04/2023 20:30 [facility] [place] TYPE: Emergency COMPLAINT: - SUICIDAL IDEATIONS DIAGNOSES: - Alcohol abuse with intoxication, unspecified - Allergy status to other drugs, medicaments and biological substances - Blood alcohol level of 240 mg/100 ml or more - Contact with and (suspected) exposure to COVID-19 - Depression, unspecified - intermediate manager (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 of 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 - Other injury of unspecified body region, initial encounter - Other half-way (current) 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 - Suicidal ideations 10/29/2022 15:56 [facility] [place] TYPE: Emergency COMPLAINT: - POSS R ELBOW BREAK 07/26/2022 12:13 [facility] [place] TYPE: Emergency COMPLAINT: - WEAKNESS DIAGNOSES: - Allergy status to other drugs, medicaments and biological substances - Chronic obstructive pulmonary disease, unspecified - Cough, unspecified - COVID-19 - intermediate manager (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 of 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 - Other half-way (current) 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 - Procedure and treatment not carried out because of patient's decision for other reasons - Type 2 diabetes mellitus without complications 06/19/2022 09:12 [facility] [place] TYPE: Emergency COMPLAINT: - FLANK PAIN DIAGNOSES: - Allergy status to other drugs, medicaments and biological substances - Chronic obstructive pulmonary disease, unspecified - Dorsalgia, unspecified - Other half-way (current) 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 - Type 2 diabetes mellitus without complications - Unspecified abdominal pain 04/30/2022 19:07 [facility] [place] TYPE: Emergency COMPLAINT: - CHEST PAIN DIAGNOSES: - Allergy status to other drugs, medicaments and biological substances - Chronic obstructive pulmonary disease, unspecified - [facility] (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 of 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 - Other superintendent container terminal (current) 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 - Precordial pain - Type 2 diabetes mellitus without complications INPATIENT VISIT TRACKING (12 MO.) 01/12/2023 16:09 [facility] [place] TYPE: [facility] Services COMPLAINT: - MAJOR DEPRESSION WITH PF DIAGNOSES: - Major depressive disorder, recurrent severe without psychotic features - Major depressive disorder, recurrent severe without psychotic features [email or web address]
[2023-03-29 06:21] VITALS: BP 110/52
== END ==
LOC: ED 05:09
DX: N39.0 Urinary tract infection, site not specified (principal); E11.9 Type 2 diabetes mellitus without complications; J44.9 Chronic obstructive pulmonary disease, unspecified; Z88.5 Allergy status to narcotic agent; Z88.8 Allergy status to other drugs, medicaments and biological substances; Z79.899 Other long term (current) 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; Z79.890 Hormone replacement therapy
CPT/HCPCS: 81001

== ENCOUNTER 2023-03-30 17:47 | Emergency (ER) | payer MEDICARE ==
[~2023-03-30] VITALS: Ht 154.9 cm; Wt 53.1 kg
--- OUTSIDE RECORDS SUMMARY | 2023-03-30 17:49 | XMS ---
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 - Patient with suicidal and/or homicidal ideations eloped. - Patient eloped with IV in place. Details: Patient LWBS. CRITERIA MET - 6 ED Visits in 6 Months - Group Notification - PDMP - [facility] - 2 Visits in 30 Days - [facility] - Has Care Guidelines CARE PROVIDERS EVELIO RIVERS Physician 05/23/2018-Current PHONE: Unknown BHANU DE LA PAZ [facility] 02/24/2021-Current PHONE: Unknown MAI MADISON Internal Medicine: Pulmonary Disease 02/06/2019-Current PHONE: Unknown GEOFF RIVERA Psychiatry \T\ Neurology: Psychiatry Current PHONE: [phone] Mateus has no Care Guidelines for this patient. Care History Medical/Surgical 10/22/2021 [facility] Follow up with PCP Dr. De La Paz on 11/16/[address] Waters, oncologist, on 09/25/2019 [facility] Patient aware of PCP appt. on 10/17/2019 and of the walk in clinic, but stated she used ED because she has respiratory issues with fever and was too weak to walk. 08/08/2019 [facility] - PATIENT HAS AN APT WITH PCP DR DE LA PAZ ON 10/17/19 Jon VISIT COUNT (12 MO[address] [facility] H. TOTAL 9 NOTE: Visits indicate total known visits. ED/UCC VISIT TRACKING (12 MO.) 03/30/2023 17:47 [facility] [place] TYPE: Emergency COMPLAINT: - STOKE SYMPTOMS 03/30/2023 14:54 [facility] [place] TYPE: Emergency COMPLAINT: - ACCIDENTAL OVERDOSE 03/29/2023 05:09 [facility] [place] TYPE: Emergency COMPLAINT: - POSS UTI 01/10/2023 18:31 [facility] [place] TYPE: Emergency COMPLAINT: - SUICIDAL IDEATIONS DIAGNOSES: - Allergy status to other drugs, medicaments and biological substances - Bipolar disorder, unspecified - Chronic obstructive pulmonary disease, unspecified - Contact with and (suspected) exposure to COVID-19 - Dorsalgia, unspecified - senior living (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 of 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 - Other chronic pain - Other half-way (current) 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 - Restless legs syndrome [...] exposure to COVID-19 - Depression, unspecified - senior living (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 of 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 - Other injury of unspecified body region, initial encounter - 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 - Suicidal ideations 10/29/2022 15:56 [facility] [place] TYPE: Emergency COMPLAINT: - POSS R ELBOW BREAK 07/26/2022 12:13 [facility] [place] TYPE: Emergency COMPLAINT: - WEAKNESS DIAGNOSES: - Allergy status to other drugs, medicaments and biological substances - Chronic obstructive pulmonary disease, unspecified - Cough, unspecified - COVID-19 - senior living (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 of 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 - Other half-way [...] - Chronic obstructive pulmonary disease, unspecified - senior living (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 of 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 - Other half-way (current) 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 - Precordial pain - Type 2 diabetes mellitus without complications INPATIENT VISIT TRACKING (12 MO.) 01/12/2023 16:09 [facility] [place] TYPE: Psych[facility] Services COMPLAINT: - MAJOR DEPRESSION WITH PF DIAGNOSES: - Major depressive disorder, recurrent severe without psychotic features - Major depressive disorder, recurrent severe without psychotic features [email or web address]
[2023-03-30 19:45] VITALS: BP 118/60
== END 2023-03-30 19:45 | disposition home or self-care (01) ==
LOC: ED 17:47
DX: S09.90XA Unspecified injury of head, initial encounter (principal); R55 Syncope and collapse; W22.8XXA Striking against or struck by other objects, initial encounter; E11.9 Type 2 diabetes mellitus without complications; J44.9 Chronic obstructive pulmonary disease, unspecified; Z88.8 Allergy status to other drugs, medicaments and biological substances; Z79.899 Other long term (current) 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; Z79.01 Long term (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 of 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
CPT/HCPCS: 36415; 70450; 80053; 81001; 85025; 85610; 99284-25; G0480; J7040

== ENCOUNTER 2024-10-31 10:57 | Emergency (ER) | payer MEDICARE, OTHER ==
[~2024-10-31] VITALS: Ht 154.9 cm; Wt 57.6 kg
[~2024-10-31 10:57] MED LIST changes: +LEVOTHYROXINE112 MCG PO; +LIDOCAINE1 EACH; +LOMOTIL TABLET1 EACH PO; +ONDANSETRON ODT4 MG PO
[2024-10-31] MEDS ORDERED: OXYCODONE-ACET1 EAC3 PO (11:05)
[2024-10-31 11:34] LABS: BASOPHILS 0.5 % (0-2); EOSINOPHILS 0.4 % (0-6); HEMATOCRIT 39.1 % (35.0-50.0); HEMOGLOBIN 13.2 g/dL (12.0-18.0); LYMPHOCYTES 23.7 % (24-44); MCH 30.2 (27-36); MCHC 33.8 g/dl (30-36); MCV 89.2 fl (81-99); MONOCYTES 7.4 % (0-12); PLATELET COUNT 298 K/uL (140-440); RBC 4.38 M/ul (4.3-5.7); RDW 13.5 (10.5-15.0)
[2024-10-31 11:57] LABS: ACETAMINOPHEN 0 ug/mL (10-30); ALBUMIN 3.4 g/dL (3.4-5.0); ALCOHOL, MEDICAL <3 ng/dL (<3); ALKALINE PHOSPHATASE 59 U/L (46-116); ALT (SGPT) 24 U/L (14-59); ANION GAP 9.9 (7-21); AST (SGOT) 16 U/L (15-37); BILIRUBIN, TOTAL 0.2 ng/dL (0.2-1.0); BUN/CREATININE RATIO 19.27 (6.0-28.6); CALCIUM 9.2 mg/dL (8.5-10.1); CARBON DIOXIDE 27 mmol/L (21-32); CHLORIDE 106 mmol/L (98-107); CREATININE, SERUM 0.83 mg/dL (0.55-1.02); GLOMERULAR FILTRATION RATE,EST 73 mL/min (>60); POTASSIUM 3.9 mmol/L (3.5-5.1); PROTEIN, TOTAL 6.8 g/dL (6.4-8.2); SALICYLATE 1.1 mg/dL (2.8-20.0); TSH, 3RD GENERATION 2.944 uIU/mL (0.358-3.740); UREA NITROGEN 16 mg/dL (7-18)
[2024-10-31] MEDS ORDERED: LIDOCAINE HCL 4% 1 EACH PATCH TD ONE (13:15)
[2024-10-31] MEDS ORDERED: HYDROmorphone HCL 1 MG/ML SYR IV ONE (13:15)
[2024-10-31] MEDS ORDERED: ondansetron HCL 4 MG/2 ML VIAL IV ONE (13:15)
[2024-10-31] MEDS ORDERED: OXYCODONE/APAP 5/325 TAB PO ONE (15:00)
[2024-10-31] MEDS ORDERED: PERCOCET 5-3251 EACH PO (15:18)
[2024-10-31 15:32] VITALS: BP 114/57
[2024-10-31] MEDS ORDERED: LIDOCAINE PATCH REMOVAL 1 EA TD SCH (21:00)
== END 2024-10-31 15:32 | disposition home or self-care (01) ==
LOC: ED 10:57
PROVIDERS: Emergency Medicine
DX: M54.9 Dorsalgia, unspecified (principal); G89.29 Other chronic pain; W18.30XA Fall on same level, unspecified, initial encounter; F32.A Depression, unspecified; E11.9 Type 2 diabetes mellitus without complications; J44.9 Chronic obstructive pulmonary disease, unspecified; Z88.5 Allergy status to narcotic agent; Z88.8 Allergy status to other drugs, medicaments and biological substances; Z79.890 Hormone replacement therapy; Z79.899 Other long term (current) 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
CPT/HCPCS: 36415; 80053; 80307; 84443; 85025; 96374; 96375; 99283-25; A9270; G0480; J1171; J2405

== ENCOUNTER 2025-02-08 21:45 | Emergency (ER) | payer MEDICARE, OTHER ==
[~2025-02-08 21:45] MED LIST changes: +OXYCODONE-ACET1 EAC3 PO
[2025-02-08 21:56] LABS: BASOPHILS 1.3 % (0-2); EOSINOPHILS 1.2 % (0-6); HEMATOCRIT 35.5 % (35.0-50.0); HEMOGLOBIN 12.2 g/dL (12.0-18.0); LYMPHOCYTES 40.8 % (24-44); MCH 29.8 (27-36); MCHC 34.4 g/dl (30-36); MCV 86.5 fl (81-99); MONOCYTES 10.9 % (0-12); NEUTROPHILS 45.8 % (39-80); PLATELET COUNT 294 K/uL (140-440); RDW 13.5 (10.5-15.0)
[2025-02-08] MEDS ORDERED: ASPIRIN 81 MG CHEW PO ONE (22:00)
[2025-02-08 22:06] LABS: INR 1.04 (0.80-1.30)
[2025-02-08 22:20] LABS: ALBUMIN 3.7 g/dL (3.4-5.0); ALBUMIN/GLOBULIN RATIO 1.32 (1.1-2.4); ANION GAP 11.7 (7-21); BILIRUBIN, TOTAL 0.2 mg/dL (0.2-1.0); BUN/CREATININE RATIO 14.66 (6.0-28.6); CALCIUM 8.3 mg/dL (8.5-10.1); CREATININE, SERUM 0.75 mg/dL (0.55-1.02); MAGNESIUM 2.2 mg/dL (1.8-2.4); POTASSIUM 3.7 mmol/L (3.5-5.1); PROTEIN, TOTAL 6.5 g/dL (6.4-8.2)
[2025-02-08 23:57] VITALS: BP 133/67
--- NOTE | 2025-02-09 14:47 | EKG ---
[facility] [address] [place] [address] Signed Normal sinus rhythm with sinus arrhythmia Normal ECG When compared with ECG of 15-APR-2024 09:55 No significant change was found Confirmed by Gabrielle Black MD () on 02/09/2025 2:47:30 PM Electronically Signed By: GABRIELLE BLACK MD 02/09/25 1447 PATIENT NAME: WAYNE RONALD HANNAH Electrocardiogram DATE OF : 49 PHYSICIAN: GABRIELLE BLACK MD REPORT #: [id number] REPORT IS CONFIDENTIAL AND NOT TO BE RELEASED WITHOUT AUTHORIZATION
== END 2025-02-08 23:58 | disposition home or self-care (01) ==
LOC: ED 21:45
PROVIDERS: Family Medicine
DX: R07.89 Other chest pain (principal); E11.9 Type 2 diabetes mellitus without complications; J44.9 Chronic obstructive pulmonary disease, unspecified; M41.9 Scoliosis, unspecified; I48.91 Unspecified atrial fibrillation; Z88.8 Allergy status to other drugs, medicaments and biological substances; Z79.890 Hormone replacement therapy; Z79.899 Other long term (current) 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
CPT/HCPCS: 36415; 71045; 80053; 83735; 83880; 84484; 85025; 85610; 93005; 93010; 99285-25; A9270

== ENCOUNTER 2025-04-17 10:47 | Emergency (ER) | payer MEDICARE, OTHER ==
[~2025-04-17] VITALS: Ht 154.9 cm; Wt 57.9 kg
[2025-04-17] MEDS ORDERED: LIDODERM1 EACH TOP (12:21)
[2025-04-17 12:33] VITALS: BP 125/67
== END 2025-04-17 12:35 | disposition home or self-care (01) ==
LOC: ED 10:47
DX: S20.219A Contusion of unspecified front wall of thorax, initial encounter (principal); E11.9 Type 2 diabetes mellitus without complications; J44.9 Chronic obstructive pulmonary disease, unspecified; I48.91 Unspecified atrial fibrillation; Z88.8 Allergy status to other drugs, medicaments and biological substances; Z90.711 Acquired absence of uterus with remaining cervical stump; W18.30XA Fall on same level, unspecified, initial encounter
CPT/HCPCS: 71250; 99284-25

== ENCOUNTER 2025-09-01 10:39 | Emergency (ER) | payer MEDICARE, OTHER ==
[~2025-09-01] VITALS: Ht 154.9 cm; Wt 57.0 kg
[~2025-09-01 10:39] MED LIST changes: +LIDODERM1 EACH TOP
[2025-09-01 10:57] LABS: BASOPHILS 0.3 % (0.1-1.2); EOSINOPHILS 0.8 % (0.7-5.8); LYMPHOCYTES 41.5 % (19.3-51.7); MCH 29.0 PG (25.6-32.2); MCHC 32.8 g/dL (32.2-35.5); MCV 88.2 fL (79.4-94.8); MONOCYTES 8.2 % (4.7-12.5); NEUTROPHILS 49.0 % (34.0-71.1); RBC 4.42 M/uL (3.93-5.22)
[2025-09-01] MEDS ORDERED: DIPHTH,PERTUSS(ACELL),TET VAC 0.5 ML SYRINGE IM ONE (11:00)
[2025-09-01 11:08] LABS: INR 0.96 (0.80-1.30); PROTIME 12.4 Sec (11.2-14.2)
[2025-09-01 11:09] LABS: ALCOHOL, MEDICAL <3 ng/dL (<3); GLOMERULAR FILTRATION RATE,EST 88 mL/min (>60); UREA NITROGEN 17 mg/dL (7-18)
[2025-09-01 14:04] VITALS: BP 142/73
== END 2025-09-01 13:15 | disposition home or self-care (01) ==
LOC: ED 10:39
PROVIDERS: Emergency Medicine
DX: S01.112A Laceration without foreign body of left eyelid and periocular area, initial encounter (principal); S01.81XA Laceration without foreign body of other part of head, initial encounter; S00.12XA Contusion of left eyelid and periocular area, initial encounter; M54.50 Low back pain, unspecified; G89.29 Other chronic pain; J44.9 Chronic obstructive pulmonary disease, unspecified; E11.9 Type 2 diabetes mellitus without complications; X50.1XXA Overexertion from prolonged static or awkward postures, initial encounter; Z79.899 Other long term (current) 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; Z88.8 Allergy status to other drugs, medicaments and biological substances
CPT/HCPCS: 12011; 36415; 70450; 72125; 72131; 73502; 80048; 85025; 85610; 90471; 90715; 99284-25; G0480

== ENCOUNTER 2025-09-10 12:35 | Emergency (ER) | payer MEDICARE, OTHER ==
[~2025-09-10] VITALS: Ht 154.9 cm; Wt 50.9 kg
[2025-09-10 13:28] LABS: BLOOD/HGB, URINE NEGATIVE (Negative); KETONE, URINE NEGATIVE (Negative); LEUK ESTERASE, URINE NEGATIVE (negative); NITRITE, URINE NEGATIVE (negative)
[2025-09-10 13:41] LABS: BASOPHILS 0.4 % (0.1-1.2); EOSINOPHILS 0.9 % (0.7-5.8); LYMPHOCYTES 35.1 % (19.3-51.7); MCH 29.3 PG (25.6-32.2); MCHC 32.9 g/dL (32.2-35.5); MCV 89.0 fL (79.4-94.8); MONOCYTES 8.4 % (4.7-12.5); NEUTROPHILS 54.8 % (34.0-71.1); RBC 4.37 M/uL (3.93-5.22)
[2025-09-10 13:57] LABS: ALT (SGPT) 36.0 U/L (14-59); AST (SGOT) 22.0 U/L (15-37); GLOMERULAR FILTRATION RATE,EST 80.0 mL/min (>60); PROTEIN, TOTAL 7.0 g/dL (6.4-8.2); UREA NITROGEN 13.0 mg/dL (7-18)
[2025-09-10 17:00] VITALS: BP 126/70
== END 2025-09-10 17:00 | disposition home or self-care (01) ==
LOC: ED 12:35
PROVIDERS: Emergency Medicine
DX: R53.1 Weakness (principal); J44.9 Chronic obstructive pulmonary disease, unspecified; Z79.899 Other long term (current) 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; Z88.8 Allergy status to other drugs, medicaments and biological substances
CPT/HCPCS: 36415; 74177; 80053; 81003; 85025; 99284-25; Q9967

== ENCOUNTER 2025-10-29 14:51 | Emergency (ER) | payer MEDICARE, OTHER ==
[~2025-10-29] VITALS: Ht 154.9 cm; Wt 53.3 kg
[2025-10-29] MEDS ORDERED: GABAPENTIN100 MG PO (15:44)
[2025-10-29] MEDS ORDERED: BUSPIRONE HCL5 MG PO (15:45)
[2025-10-29] MEDS ORDERED: IRON18 M1 PO (15:49)
[2025-10-29] MEDS ORDERED: MULTI-VITAMIN1 EACH PO (15:52)
[2025-10-29 15:53] LABS: BLOOD/HGB, URINE NEGATIVE (Negative); KETONE, URINE NEGATIVE (Negative); LEUK ESTERASE, URINE NEGATIVE (negative); NITRITE, URINE NEGATIVE (negative)
[2025-10-29] MEDS ORDERED: LO-DOSE ASPIRIN81 MG PO (15:53)
[2025-10-29] MEDS ORDERED: GEMTESA75 MG PO (15:53)
[2025-10-29] MEDS ORDERED: PRAMIPEXOLE DIHY1 MG PO (15:54)
[2025-10-29] MEDS ORDERED: CALCIUM 600 MG1 EA10 PO (15:55)
[2025-10-29 16:04] LABS: AMPHETAMINES, URINE NEGATIVE (NEGATIVE); BARBITURATES, URINE NEGATIVE (NEGATIVE); BENZODIAZEPINE, URINE NEGATIVE (NEGATIVE); CANNABINOID, URINE NEGATIVE (NEGATIVE); COCAINE, URINE NEGATIVE (NEGATIVE); ECSTASY, URINE NEGATIVE (NEGATIVE); FENTANYL, URINE NEGATIVE (NEGATIVE); METHADONE, URINE NEGATIVE (NEGATIVE); OPIATES, URINE POSITIVE (NEGATIVE); OXYCODONE, URINE POSITIVE (NEGATIVE); PHENCYCLIDINE, URINE NEGATIVE (NEGATIVE)
[2025-10-29 16:36] LABS: BASOPHILS 0.5 % (0.1-1.2); EOSINOPHILS 0.3 % (0.7-5.8); LYMPHOCYTES 38.2 % (19.3-51.7); MCH 28.7 PG (25.6-32.2); MCHC 32.2 g/dL (32.2-35.5); MCV 89.2 fL (79.4-94.8); MONOCYTES 8.6 % (4.7-12.5); NEUTROPHILS 52.1 % (34.0-71.1); RBC 4.18 M/uL (3.93-5.22)
[2025-10-29] MEDS ORDERED: ROPINIROLE HCL 1 MG TAB PO SCH (17:00)
[2025-10-29] MEDS ORDERED: PRAMIPEXOLE DIHYDROCHLORIDE 1 MG TAB PO SCH (17:00)
[2025-10-29] MEDS ORDERED: [UNRECOGNIZED DRUG - REMARK] XX PRN (17:00)
[2025-10-29 17:07] LABS: ALCOHOL, MEDICAL <3 mg/dL (<3); ALT (SGPT) 31 U/L (14-59); AST (SGOT) 23 U/L (15-37); GLOMERULAR FILTRATION RATE,EST 89 mL/min (>60); PROTEIN, TOTAL 7.5 g/dL (6.4-8.2); TSH, 3RD GENERATION 3.995 uIU/mL (0.358-3.740); UREA NITROGEN 14 mg/dL (7-18)
[2025-10-29] MEDS ORDERED: ONDANSETRON 4 MG TAB ODT SL ONE (18:45)
[2025-10-29] MEDS ORDERED: TRAMADOL HCL 50 MG TAB PO PRN (22:45)
[2025-10-30 06:51] LABS: INFLUENZA B NAA NEGATIVE (NEGATIVE); RESPIRATORY SYNCYTIAL VIR NAA NEGATIVE (NEGATIVE)
[2025-10-30] MEDS ORDERED: OXYCODONE/APAP 10/325 TAB PO PRN (08:15)
[2025-10-30] MEDS ORDERED: LIDOCAINE HCL 4% 1 EACH PATCH TD SCH (09:00)
[2025-10-30 11:43] VITALS: BP 156/88
[2025-10-30] MEDS ORDERED: LIDOCAINE PATCH REMOVAL 1 EA TD SCH (21:00)
== END 2025-10-30 11:46 ==
LOC: ED 14:51
PROVIDERS: Emergency Medicine
DX: R45.851 Suicidal ideations (principal); M54.9 Dorsalgia, unspecified; G89.29 Other chronic pain; E11.9 Type 2 diabetes mellitus without complications; J44.9 Chronic obstructive pulmonary disease, unspecified; I48.91 Unspecified atrial fibrillation; Z88.8 Allergy status to other drugs, medicaments and biological substances; Z79.899 Other long term (current) 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; Z79.82 Long term (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 of aspirin; Z88.1 Allergy status to other antibiotic agents
CPT/HCPCS: 36415; 80053; 80307; 81003; 84443; 85025; 87502; 99285; A9270; G0480; U0002